=== PATIENT | female | born 1970 | race Caucasian/White ===

== ENCOUNTER 2023-12-12 16:53 | Emergency (ER) | payer OTHER, SELFPAY ==
[2023-12-12 17:11] VITALS: BP 162/86; PULSE 72; TEMP 36.8; O2SAT 98; BMI 41.8
--- NOTE | 2023-12-12 17:44 | US_ITS ---
The [address] [address] Patient Name: GEETA VANCE MRN: [id number] date: 1970 Sex: F Assigned Patient Location: ER Current Patient Location: ED.MAIN Accession/Order Number: [id number] Exam Date: 12/12/2023 18:15 Report Date: 12/12/2023 19:50 At the request of: SYBIL WYATT Procedure: US venous doppler LE BI EXAM: US venous doppler LE BI HISTORY: Leg pain/swelling COMPARISON: None. TECHNIQUE: Multiple sonographic images of the deep veins of both lower extremities were obtained, supplemented with Doppler. FINDINGS: The deep veins of both lower extremities are well visualized from the groin to the mid calf. No filling defect is identified to indicate a thrombus. There is normal compression augmentation to flow bilaterally. Pedicles veins are noted superficially, more numerous on the left. US/US venous doppler LE BI IMPRESSION: There is no direct or indirect evidence of deep vein thrombosis in the lower extremities at this time. Electronically authenticated by: HILDA MUNOZ Date: 12/12/2023 19:50
--- NOTE | 2023-12-12 17:44 | XR_ITS ---
The [address] [address] Patient Name: GEETA VANCE MRN: [id number] date: 1970 Sex: F Assigned Patient Location: ER Current Patient Location: ED.MAIN Accession/Order Number: [id number] Exam Date: 12/12/2023 17:58 Report Date: 12/12/2023 20:18 At the request of: SYBIL WYATT Procedure: XR ankle DANISH min 3V EXAM: XR ankle DANISH min 3V HISTORY: Bilateral ankle pain/swelling COMPARISON: None. TECHNIQUE: 3 views right ankle. 3 views left ankle. FINDINGS/IMPRESSION: Right ankle: There is an old tiny avulsion fracture of the lateral malleolus. There is no acute fracture. The mortise is preserved. There is diffuse soft tissue swelling surrounding the right ankle. Left ankle: There is an acute displaced fracture through the Achilles enthesophyte. This is distracted by 10 mm. There is a large plantar heel spur. The mortise is preserved. There is prominent soft tissue swelling surrounding the left ankle. Electronically authenticated by: MARY CAMPOS Date: 12/12/2023 20:18
--- NOTE | 2023-12-12 17:45 | ED.GENADUL1 ---
HPI HPI - General Adult General Chief complaint: Extremity Problem, Nontraumatic Stated complaint: Swollen Ankles Time Seen by Provider: 12/12/23 17:36 Source: patient Mode of arrival: walk-in Limitations: no limitations History of Present Illness HPI narrative: Patient is a 53-year-old female who presents to the emergency department for 2-week history of pain and swelling in the ankles. She states she initially attributed her symptoms to peripheral neuropathy but feels that her symptoms are worse in the last several days. She feels the left ankle and lower leg are swollen more than the right side. No falls or injuries. No fevers, vomiting or drainage from the ankles. No medications taken prior to arrival. She takes 200 mg of gabapentin 3 times daily for her peripheral neuropathy, no recent changes to this medication. Related Data Previous Rx's ?Medication ?Instructions ?Recorded ketorolac 10 mg tablet 10 mg PO TID PRN pain #10 tabs 12/12/23 ondansetron 4 mg disintegrating 4 mg PO Q6H PRN nausea and 12/12/23 tablet vomiting #12 tabs oxycodone-acetaminophen 5 mg-325 1 tab PO Q6H PRN pain 3 days #12 12/12/23 mg tablet (Percocet) tabs Allergies Allergy/AdvReac Type Severity Reaction Status Date / Time Penicillins AdvReac Severe Anaphylaxis Verified 12/12/23 17:11 Opioid HPI Opioid Management Most Recent Opioid Data: Last Pain Scale 9 12/12/23 17:53 Last MAR Pain Assessment 12/12/23 17:53 Review of Systems ROS Constitutional Denies: fever or chills Ears, nose, mouth, and throat Denies: throat pain or nasal congestion Cardiovascular Denies: chest pain Respiratory Denies: shortness of breath Gastrointestinal Denies: nausea or vomiting Musculoskeletal Reports: extremity pain and extremity swelling; Denies: back pain, neck pain or limited range of motion Integumentary/Breast Denies: rash Hematologic/Lymphatic Denies: easy bruising or easy bleeding Exam Narrative Exam Narrative: Gen.: Awake, alert, in no distress Head: Normocephalic, atraumatic ENT: Moist mucous membranes Respiratory: No respiratory distress Extremities: Moves extremities equally, left ankle is edematous, diffusely tender over the medial and posterior aspect. No significant edema noted of the right ankle with diffuse mild tenderness. Left calf is nonpitting, more swollen than the right calf which is also nonpitting. No red streaking, open wounds or drainage noted. Psych: Normal mood and affect Neuro: No focal neuro deficit Skin: Warm, dry Constitutional Vital Signs, click to edit/add: Last Vital Signs Temp 98.2 F 12/12/23 17:11 Pulse 72 12/12/23 17:11 Resp 18 12/12/23 17:11 BP 162/86 H 12/12/23 17:11 Pulse Ox 98 12/12/23 17:11 O2 Del Method Room Air 12/12/23 17:11 Course Vital Signs Vital signs: Vital Signs Temperature 98.2 F 12/12/23 17:11 Pulse Rate 72 12/12/23 17:11 Respiratory Rate 18 12/12/23 17:11 Blood Pressure 162/86 H 12/12/23 17:11 Pulse Oximetry 98 12/12/23 17:11 Oxygen Delivery Method Room Air 12/12/23 17:11 Temperature 98.2 F 12/12/23 17:11 Pulse Rate 72 12/12/23 17:11 Respiratory Rate 18 12/12/23 17:11 Blood Pressure 162/86 H 12/12/23 17:11 Pulse Oximetry 98 12/12/23 17:11 Oxygen Delivery Method Room Air 12/12/23 17:11 Medical Decision Making MDM Narrative Medical decision making narrative: Patient medicated with pain medication and NSAID in the ER. Laboratory studies show mildly elevated inflammatory markers but no evidence of gout, x-rays of the bilateral ankles and ultrasound of the bilateral lower extremities obtained showing no evidence of DVT. Patient has an old avulsion fracture in the right ankle, the left ankle shows an acute displaced fracture of the Achilles enthesophyte. Suspect this is the cause of the patient's left ankle swelling and redness. Patient placed in an orthopedic boot of the left leg. She was reevaluated by attending physician and will be discharged home with a short course of analgesics and NSAIDs to follow-up with podiatry. Stable at time of discharge. Rest, ice, elevate. Return to the ER if symptoms change or worsen SHARED APC VISIT, PHYSICIAN ATTESTATION: Vujp-os-awkh I performed a substantive part of the MDM during the patient?s E/M visit. I personally evaluated and examined the patient. I personally made or approved the documented management plan and acknowledge its risk of complications. Medical Records Medical records reviewed: Yes I reviewed the patient's medical records Lab Data Lab results reviewed: Yes I reviewed the patient's lab results Labs: Lab Results 12/12/23 Range/Units 17:55 WBC 10.3 (4.0-11.0) 10^3/uL RBC 5.49 H (4.20-5.40) 10^6/uL Hgb 13.9 (12.0-16.0) g/dL Hct 43.8 (36.0-48.0) % MCV 79.8 L (81.0-99.0) fL MCH 25.3 L (26.7-34.0) pg MCHC 31.7 (29.9-35.2) g/dL RDW 15.3 H (11.0-15.0) % Plt Count 278 (150-450) 10^3/uL MPV 10.4 (9.5-13.5) fL Neut % (Auto) 64.2 (43.0-75.0) % Lymph % (Auto) 24.7 (20.5-60.0) % [place] % (Auto) 8.0 (1.7-12.0) % Eos % (Auto) 2.1 (0.9-7.0) % Baso % (Auto) 0.6 (0.2-2.0) % Neut # (Auto) 6.6 H (1.4-6.5) 10^3/uL Lymph # (Auto) 2.5 (1.2-3.8) 10^3/uL [place] # (Auto) 0.8 (0.3-0.8) 10^3/uL Eos # (Auto) 0.2 (0.0-0.7) 10^3/uL Baso # (Auto) 0.1 (0.0-0.1) 10^3/uL Abs Immat Gran (auto) 0.04 H (0.00-0.03) 10^3/uL Imm/Tot Granulo (auto) 0.4 (0.0-0.5) % ESR 126 H (<=30) mm/hr Sodium 133 L (136-145) mmol/L Potassium 3.8 (3.5-5.1) mmol/L Chloride 98 (98-107) mmol/L Carbon Dioxide 30.3 (21.0-32.0) mmol/L Anion Gap 8.5 BUN 16.0 (7.0-18.0) mg/dL Creatinine 0.76 (0.55-1.02) mg/dL Est GFR ( Amer) >60 (>=60) Est GFR (Non-Af Amer) >60 (>=60) BUN/Creatinine Ratio 21.1 Glucose 94 (74-106) mg/dL Lactate 1.0 (0.4-2.0) mmol/L Uric Acid 3.4 (2.6-6.0) mg/dL Calcium 9.2 (8.5-10.1) mg/dL C-Reactive Protein 3.25 H (<=0.50) mg/dL NT-Pro-B Natriuret Pep 40.0 (<=900.0) pg/mL Imaging Data Venous US: Attestation: I have reviewed the pertinent imaging results. Radiologist's impression: ITS Impressions Venous Doppler Study 12/12/23 17:44 IMPRESSION: There is no direct or indirect evidence of deep vein thrombosis in the lower extremities at this time. Electronically authenticated by: JUN MUNOZ Date: 12/12/2023 19:50 xr ANKLE: Attestation: I have reviewed the pertinent imaging results. Radiologist's impression: ITS Impressions Venous Doppler Study 12/12/23 17:44 IMPRESSION: There is no direct or indirect evidence of deep vein thrombosis in the lower extremities at this time. Electronically authenticated by: JUN MUNOZ Date: 12/12/2023 19:50 Discharge Plan Discharge Stand Alone Forms: Portal Instructions Chief Complaint: Extremity Problem, Nontraumatic Clinical Impression: Acute bilateral ankle pain, Avulsion fracture of left ankle Patient Disposition: Home, Self-Care Time of Disposition Decision: 20:37 Condition: Good Prescriptions / Home Meds: New ketorolac 10 mg tablet 10 mg PO TID PRN (Reason: pain) Qty: 10 0RF oxycodone-acetaminophen [Percocet] 5-325 mg tablet 1 tab PO Q6H PRN (Reason: pain) 3 Days Qty: 12 0RF Rx Instructions: DX: M25.57 ondansetron 4 mg tablet,disintegrating 4 mg PO Q6H PRN (Reason: nausea and vomiting) Qty: 12 0RF Print Language: Ukrainian Instructions: Avulsion Fracture (ED) Referrals: Jun Gentile DPM [Physician] - As soon as possible
[2023-12-12] MEDS: OXYCODONE HCL/ACETAMINOPHEN 5MG/325MG 1 TAB PO (17:53)
[2023-12-12] MEDS: KETOROLAC TROMETHAMINE 10 MG TABLET PO (17:53)
[2023-12-12 18:05] LABS: Basophils Absolute Auto 0.1 10^3/uL (0.0-0.1); Basophils Percent Auto 0.6 % (0.2-2.0); Eosinophils Absolute Auto 0.2 10^3/uL (0.0-0.7); Eosinophils Percent Auto 2.1 % (0.9-7.0); Hematocrit 43.8 % (36.0-48.0); Hemoglobin 13.9 g/dL (12.0-16.0); Immature Granulocytes Abs Auto 0.04 10^3/uL (0.00-0.03); Immature Granulocytes Pct Auto 0.4 % (0.0-0.5); Lymphocytes Absolute Auto 2.5 10^3/uL (1.2-3.8); Lymphocytes Percent Auto 24.7 % (20.5-60.0); Mean Corpuscular HGB Conc 31.7 g/dL (29.9-35.2); Mean Corpuscular Hemoglobin 25.3 pg (26.7-34.0); Mean Corpuscular Volume 79.8 fL (81.0-99.0); Mean Platelet Volume 10.4 fL (9.5-13.5); Monocytes Absolute Auto 0.8 10^3/uL (0.3-0.8); Neutrophils Absolute Auto 6.6 10^3/uL (1.4-6.5); Neutrophils Percent Auto 64.2 % (43.0-75.0); Platelet Count 278 10^3/uL (150-450); Red Blood Count 5.49 10^6/uL (4.20-5.40); Red Cell Distribution Width 15.3 % (11.0-15.0); White Blood Count 10.3 10^3/uL (4.0-11.0)
[2023-12-12 18:31] LABS: Anion Gap 8.5; BUN Creatinine Ratio 21.1; C Reactive Protein 3.25 mg/dL (<=0.50); Calcium 9.2 mg/dL (8.5-10.1); Carbon Dioxide 30.3 mmol/L (21.0-32.0); Chloride 98 mmol/L (98-107); Estimated GFR (African America >60 (>=60); Estimated GFR (Non-African Ame >60 (>=60); Glucose 94 mg/dL (74-106); Potassium 3.8 mmol/L (3.5-5.1); Sodium 133 mmol/L (136-145); Uric Acid 3.4 mg/dL (2.6-6.0)
[2023-12-12 18:40] LABS: Erythrocyte Sedimentation Rate 126 mm/hr (<=30)
--- NOTE | 2023-12-12 19:13 | PC.NURSE ---
US at bedside upon shift change. this RN assumed care of pt this time.
[2023-12-12 20:54] VITALS: BP 190/122; PULSE 81; O2SAT 96
[2023-12-12 21:04] VITALS: BP 190/122
[2023-12-12] MEDS: HYDRALAZINE HCL 25 MG TABLET PO (21:04)
[2023-12-12 21:47] VITALS: BP 178/118
[2023-12-12] MEDS: HYDRALAZINE HCL 20 MG/ML VIAL IVP (22:05)
[2023-12-12 22:25] VITALS: BP 168/70; PULSE 77; O2SAT 98
== END 2023-12-12 22:25 | disposition home or self-care (01) ==
PROVIDERS: Physician Assistant; Emergency Provider Emergency Medicine
DX: S82.892A Other fracture of left lower leg, initial encounter for closed fracture (principal); M25.572 Pain in left ankle and joints of left foot; M25.571 Pain in right ankle and joints of right foot; X58.XXXA Exposure to other specified factors, initial encounter
CPT/HCPCS: 36415; 73610; 80048; 83605; 83880; 84550; 85025; 85652; 86140; 93970; 96374; 99285; J0360

== ENCOUNTER 2023-12-16 09:22 | Outpatient (OUT) | payer OTHER, SELFPAY ==
--- NOTE | 2023-12-16 | XR_ITS ---
The [address] [address] Patient Name: GEETA VANCE MRN: [id number] date: 1970 Sex: F Assigned Patient Location: Current Patient Location: Accession/Order Number: [id number] Exam Date: 12/16/2023 09:42 Report Date: 12/16/2023 11:49 At the request of: HILDA RUELAS Procedure: XR foot DANISH min 3V EXAMINATION: XR foot DANISH min 3V, XR ankle DANISH min 3V HISTORY: BILATERAL FOOT PAIN COMPARISON: 12/12/2023 FINDINGS: RIGHT FINDINGS: BONES: No acute fracture or dislocation. Moderate degenerative changes with joint space narrowing and marginal osteophyte formation. Hallux valgus. Moderate enthesopathic spurring of the calcaneus at the Achilles and plantar insertions SOFT TISSUES: Negative. No visible soft tissue swelling. OTHER: Negative. LEFT FINDINGS: BONES: 1.2 cm bone fragment likely representing avulsion of enthesopathic spurring at the Achilles insertion. Moderate degenerative change with joint space narrowing marginal osteophyte formation. Moderate hallux valgus. SOFT TISSUES: Negative. No visible soft tissue swelling. OTHER: Soft tissue swelling in the region of the Achilles tendon XR/XR foot DANISH min 3V IMPRESSION: RIGHT CONCLUSION: Moderate osteoarthritis with hallux valgus LEFT CONCLUSION: Achilles thickening with avulsion including a 1.2 cm enthesopathic spur, increased displacement now measuring 1.4 cm Electronically authenticated by: PAUL CAGLE Date: 12/16/2023 11:49
--- NOTE | 2023-12-16 | XR_ITS ---
The [address] [address] Patient Name: GEETA VANCE MRN: [id number] date: 1970 Sex: F Assigned Patient Location: Current Patient Location: Accession/Order Number: [id number] Exam Date: 12/16/2023 09:42 Report Date: 12/16/2023 11:49 At the request of: HILDA RUELAS Procedure: XR ankle DANISH min 3V EXAMINATION: XR foot DANISH min 3V, XR ankle DANISH min 3V HISTORY: BILATERAL FOOT PAIN COMPARISON: 12/12/2023 FINDINGS: RIGHT FINDINGS: BONES: No acute fracture or dislocation. Moderate degenerative changes with joint space narrowing and marginal osteophyte formation. Hallux valgus. Moderate enthesopathic spurring of the calcaneus at the Achilles and plantar insertions SOFT TISSUES: Negative. No visible soft tissue swelling. OTHER: Negative. LEFT FINDINGS: BONES: 1.2 cm bone fragment likely representing avulsion of enthesopathic spurring at the Achilles insertion. Moderate degenerative change with joint space narrowing marginal osteophyte formation. Moderate hallux valgus. SOFT TISSUES: Negative. No visible soft tissue swelling. OTHER: Soft tissue swelling in the region of the Achilles tendon XR/XR ankle DANISH min 3V IMPRESSION: RIGHT CONCLUSION: Moderate osteoarthritis with hallux valgus LEFT CONCLUSION: Achilles thickening with avulsion including a 1.2 cm enthesopathic spur, increased displacement now measuring 1.4 cm Electronically authenticated by: PAUL CAGLE Date: 12/16/2023 11:49
== END 2023-12-16 09:23 | disposition home or self-care (01) ==
LOC: EC 09:22
PROVIDERS: Visit Provider Podiatrist Foot & Ankle Surgery
DX: M25.572 Pain in left ankle and joints of left foot (principal); M25.571 Pain in right ankle and joints of right foot; M20.11 Hallux valgus (acquired), right foot; M77.32 Calcaneal spur, left foot
CPT/HCPCS: 73610; 73630

== ENCOUNTER 2023-12-30 08:54 | Outpatient (OUT) | payer OTHER, SELFPAY ==
--- NOTE | 2023-12-30 | XR_ITS ---
The [address] [address] Patient Name: GEETA VANCE MRN: [id number] date: 1970 Sex: F Assigned Patient Location: Current Patient Location: Accession/Order Number: [id number] Exam Date: 12/30/2023 09:00 Report Date: 12/31/2023 07:47 At the request of: HILDA RUELAS Procedure: XR foot DANISH min 3V EXAMINATION: XR foot DANISH min 3V, XR ankle DANISH min 3V HISTORY: BILATERAL FOOT PAIN COMPARISON: XR ankle and foot bilateral 12/16/2023 FINDINGS: RIGHT FINDINGS: BONES: Separate corticated ossification adjacent the medial malleolus favoring sequela of remote injury. Tiny corticated ossification distal to the lateral malleolus, also likely sequela of remote injury. Normal ankle joint spacing. Moderate degenerative enthesopathic spurring at Achilles tendon insertion and plantar aponeurosis . Bunion formation. SOFT TISSUES: No visible soft tissue swelling. OTHER: Negative. LEFT FINDINGS: BONES: Bunion formation. No fracture or dislocation. Prior avulsion fracture from posterior calcaneus at Achilles tendon insertion, unchanged. Large calcaneal plantar spur SOFT TISSUES: No visible soft tissue swelling. OTHER: Negative. XR/XR foot DANISH min 3V IMPRESSION: RIGHT CONCLUSION: Stable degenerative changes and suspected sequela of remote injury. No appreciable change compared to recent study. LEFT CONCLUSION: Stable degenerative changes. Stable avulsion fragment from posterior calcaneus at Achilles tendon insertion. No further retraction compared to prior study. Electronically authenticated by: FLACO ARCOS Date: 12/31/2023 07:47
--- NOTE | 2023-12-30 | XR_ITS ---
The [address] [address] Patient Name: GEETA VANCE MRN: [id number] date: 1970 Sex: F Assigned Patient Location: Current Patient Location: Accession/Order Number: [id number] Exam Date: 12/30/2023 09:00 Report Date: 12/31/2023 07:47 At the request of: HILDA RUELAS Procedure: XR ankle DANISH min 3V EXAMINATION: XR foot DANISH min 3V, XR ankle DANISH min 3V HISTORY: BILATERAL FOOT PAIN COMPARISON: XR ankle and foot bilateral 12/16/2023 FINDINGS: RIGHT FINDINGS: BONES: Separate corticated ossification adjacent the medial malleolus favoring sequela of remote injury. Tiny corticated ossification distal to the lateral malleolus, also likely sequela of remote injury. Normal ankle joint spacing. Moderate degenerative enthesopathic spurring at Achilles tendon insertion and plantar aponeurosis . Bunion formation. SOFT TISSUES: No visible soft tissue swelling. OTHER: Negative. LEFT FINDINGS: BONES: Bunion formation. No fracture or dislocation. Prior avulsion fracture from posterior calcaneus at Achilles tendon insertion, unchanged. Large calcaneal plantar spur SOFT TISSUES: No visible soft tissue swelling. OTHER: Negative. XR/XR ankle DANISH min 3V IMPRESSION: RIGHT CONCLUSION: Stable degenerative changes and suspected sequela of remote injury. No appreciable change compared to recent study. LEFT CONCLUSION: Stable degenerative changes. Stable avulsion fragment from posterior calcaneus at Achilles tendon insertion. No further retraction compared to prior study. Electronically authenticated by: FLACO ARCOS Date: 12/31/2023 07:47
--- OUTSIDE RECORDS SUMMARY | 2023-12-30 09:21 | XMS_ITS | CCD ---
Author Organization [facility] Care Team Providers Care Brewery Representative Name Role Phone RHEA Alvarado Attending Provider [facility], Services Primary Care Provider [phone] RHEA Alvaardo Primary Care Provide r CARLI Villeda Attending Provider RHEA Alvarado Primary Care Provide r CARLI Villeda Attending Provider [phone] Pending Provider Unavailable Unavailable Unavailable Unavailable Unavailable Primary Care Provider Unavailabl e Elizabeth Alvarado Primary Care Provider Unava ilable ACOSTA SCHAFER Admitting Unavailable ACOSTA SCHAFER Attending Unavailable ELIZABETH ALVARADO Primary Care Unavailable STAN CISSE Consulting Unavailable ACOSTA SCHAFER Referring Unavailable Pending, Provider Primary Care Unavailable Dr. Acosta Schafer Attending Un available Unavailable Unavailable RHEA Alvarado Primary Care Provide r RHEA Alvarado Attending Provider DO Lorrie Baig Attending Provider [phone] RHEA Alvarado Primary Care Provide r Acosta Schafer Attending Provider RHEA Ramirez Attending Provider DO Lorrie Baig Referring Provider [phone] Acosta Schafer Attending Un available Pending, Provider Primary Care Unavailable Dr. Acosta Schaferton Attending Un available Pending, Provider Primary Care Unavailable Alejandro II, Antonia Merrill Hernandez Attending Unav ailable Pending, Provider Primary Care Unavailable [place], Dr. Acosta Tyson Attending Un available Pending, Provider Primary Care Unavailable Pending, Provider Primary Care Unavailable [place], Dr. Acosta Tyson Attending Un available [place], Dr. Acosta Tyson Attending Un available Pending, Provider Primary Care Unavailable Pending, Provider Primary Care Unavailable [place], Dr. Acosta Tyson Attending Un available Myerholtz, BEATER TENDER Elizabeth K Primary Care Provide r Myerholtz, BEATER TENDER Elizabeth K Attending Provider Sindy Davila Unavailable MARII Davila Attending Provider Tyler Jean Unavailable [phone] Myerholtz, BEATER TENDER Elizabeth K Primary Care Provide r MARII Davila Attending Provider Myerholtz, BEATER TENDER Elizabeth K Attending Provider Myersaige, BEATER TENDER Elizabeth K Attending Provider NO FAMILY, PHYSICIAN Primary Care Provider Unava ilable Myerholtz, BEATER TENDER Elizabeth K Primary Care Provide r DO Lorrie Baig Referring Provider DO Krzysztof Salazar II Attending Provider [phone] NO FAMILY, PHYSICIAN Primary Care Unavailable JustinaerElizabeth moulton K Attending Unavailab le MyerholtzElizabeth K Admitting Unavailab le MyerholtzElizabeth K Primary Care Unavailab le MyerElizabeth moulton Attending Unavailab le MyerholElizabeth mitchell Admitting Unavailab le MyerholtzElizabeth Attending Unavailab le MyerholElizabeth mitchell Admitting Unavailab le MyerholElizabeth mitchell Primary Care Unavailab le MyerholElizabeth mitchell Primary Care Unavailab le MyerholtzElizabeth Attending Unavailab le Myerholtz, Elizabeth K Admitting Unavailab arnav Salazar IIKrzysztof Admitting Unavaila ble Krzysztof Salazar II Attending Unavaila Lorrie Rivera Referring Unavailable Elizabeth Alvarado Primary Care Unavailab Elizabeth Coy Primary Care Unavailab le Sindy Davila R Admitting Unavailable Sindy Davila R Attending Unavailable Elizabeth Alvarado Attending Unavailab le Elizabeth Alvarado Admitting Unavailab le Elizabeth Alvarado Attending Unavailab le Elizabeth Alvarado Admitting Unavailab le Allergies Allergy Classification Reported Allergen(s) Allergy Type Date of Onset Reaction(s) Facility NSAIDs (1 source) Ibuprofen Drug Allergy 4 Unknown Reaction [facility] Penicillins (antibiotic) (2 sources) Penicillin Drug Allergy 4 [facility] (20 sources) Penicillins; Translations: [Penicillins] Allergy to substance 8 Anaphylaxis [facility] (6 sources) Ibuprofen; Translations: [ibuprofen] Drug Allergy 3 Unknown Reaction [facility] (3 sources) Penicillin V Drug Allergy 3 [facility] (1 source) Penicillin Drug Allergy 4 [facility] Repository Medications Current Medications Medication Drug Class(es) Dates Sig (Normalized) Sig (Original) acetaminophen 325 mg oral tablet (2 sources) Start: 07-01-2022 acetaminophen (TYLENOL) tablet 650 mg Start: 07-01-2022 End: 07-01-2022 acetaminophen (TYLENOL) tabl et 1,000 mg [id number] 200 actuat albuterol 0.09 mg/actuat metered dose inhaler (11 sources) beta2-Adrenergic Agonist Start: 08-13-2022 take 1 puff(s) by inhalation every four to six hours Albuterol Sulfate Active 2 PUFF INHALATION EVERY 4-6 HOURS August 13, 2022 12:00am Start: 07-01-2022 2.5 mg, Nebuli zation, EVERY 6 HOURS PRN, Starting on Renee 07/01/22 at 1521, Until Discontinued, Wheezing Initiate RT Bronchodilator Protocol: Yes - Inpatient Protocol Albuterol Sulfat e (2.5 MG/3ML) 0.083% 1 unit dose Inhalation four times a day DX J44.9 COPD Active albuterol (PROVE NTIL) (2.5 MG/3ML) 0.083% nebulizer solution Inhale 2.5 mg into the lungs 2 times daily 0 Active albuterol sulfat e HFA (PROVENTIL;VENTOLIN;PROAIR) 108 (90 Base) MCG/ACT inhaler Inhale 2 puffs into the lungs every 6-8 hours as needed 0 Active celecoxib 200 mg oral capsule (10 sources) Nonsteroidal Anti-inflammatory Drug Start: 12-26-2021 take 200 mg by mouth once daily Celecoxib Active 200 MG PO Daily August 13, 2022 12:00am clonazePAM 1 mg oral tablet (2 sources) Benzodiazepine Start: 11-12-2019 clonazePAM 1 MG 1/2 tablet and may increase to 1 tablet nightly Orally Once a day at bed time for 30 days Oct, Active cyclobenzaprine hydrochloride 10 mg oral tablet (13 sources) Muscle Relaxant Start: 07-14-2022 take 10 mg by mouth at bedtime Cyclobenzaprine Active 10 MG PO Bedtime August 13, 2022 12:00am Start: 07-01-2022 cyclobenzaprin e (FLEXERIL) tablet 10 mg Start: 12-23-2021 take 1 tablet by cliff th once daily as needed cyclobenzaprine (FLEXERIL) 10 MG tablet Take 10 mg by mouth nightly as needed 0 12/23/2021 Active docusate sodium 50 mg / sennosides, detention 8.6 mg oral tablet (2 sources) Start: 07-02-2022 End: 07-12-2022 take 1 tablet by mouth twice daily sennosides-docusate sodium (SENOKOT-S) 8.6-50 MG tablet Take 1 tablet by mouth 2 times daily for 10 days 20 tablet 0 07/02/2022 07/12/2022 Active Start: 07-01-2022 sennosides-doc usate sodium (SENOKOT-S) 8.6-50 MG tablet 1 tablet 60 actuat fluticasone propionate 0.5 mg/actuat / salmeterol 0.05 mg/actuat dry powder inhaler (2 sources) Corticosteroid, beta2-Adrenergic Agonist take 1 puff(s) by inhalation twice daily Advair Diskus 500-50 MCG/ACT 1 puff Inhalation Twice a day Active 60 actuat formoterol fumarate 0.005 mg/actuat / mometasone furoate 0.2 mg/actuat metered dose inhaler (1 source) Corticosteroid, beta2-Adrenergic Agonist Star t: 01-23 22 take 2 puff(s) by inhalation at bedtime mometasone-formoterol (DULERA) 200-5 MCG/ACT inhaler Inhale 2 puffs into the lungs in the morning and at bedtime 0 02/08/2022 Active gabapentin 100 mg oral capsule (2 sources) Anti-epileptic Agent Gabapentin 100 MG Oral for 30 Days Active hydroCHLOROthiazide 12.5 mg oral capsule (2 sources) Thiazide Diuretic take 1 capsule by mouth once daily in the morning hydroCHLOROthiazide 12.5 MG TAKE 1 CAPSULE BY MOUTH EVERY DAY IN THE MORNING Oral for 90 Days Active hydrOXYzine hydrochloride 50 mg oral tablet (9 sources) Antihistamine Star t: 07-25 23 take 50 mg by mouth once daily at bedtime Hydroxyzine Hcl Active 50 MG PO Daily at bedtime August 13, 2022 12:00am hydrOXYzine HCl 25 MG 1 tablet as needed Orally At bedtime Active loratadine 10 mg oral tablet (2 sources) take 1 tablet by mouth once daily Loratadine 10 MG 1 tablet Orally Once a day Active losartan potassium 50 mg oral tablet (1 source) Angiotensin 2 Receptor Kwadwo Start: 01-26-20 22 take 1 tablet by mouth once daily losartan (COZAAR) 50 MG tablet Take 50 mg by mouth daily 0 01/25/2022 Active 24 hr metFORMIN hydrochloride 500 mg extended release oral tablet (2 sources) Biguanide take 1 tablet by mouth once daily metFORMIN HCl ER 500 MG TAKE 1 TABLET BY MOUTH EVERY DAY WITH EVENING MEAL Oral for 90 Days Active Mometasone-Formoterol (Dulera) 200-5 mcg/actuation Hfa Aerosol Inhaler (6 sources) Start: 08-14-19 23 take 1 puff(s) by inhalation every twelve hours Mometasone-Formote rol (Dulera) 200-5 mcg/actuation Hfa Aerosol Inhaler Active 2 PUFF INHALATION Q12H August 12, 2022 11:00pm Start: 08-13-2022 take 1 puff(s) by in halation every twelve hours Mometasone-Formoterol (Dulera) 200-5 mcg/actuation Hfa Aerosol Inhaler Active 2 PUFF INHALATION Q12H August 13, 2022 12:00am montelukast 10 mg oral tablet (4 sources) Leukotriene Receptor Antagonist Start: 07-11-2017 take 1 tablet by mouth every twenty-four hours Singulair 10 mg 1 tablet in the evening Orally Once a day Jun, Active 1 ml morphine sulfate 2 mg/ml cartridge (1 source) Opioid Agonist Start: 07-01-2022 morphine (PF) injection 2 mg omeprazole 20 mg delayed release oral tablet (2 sources) Proton Pump Inhibitor Start: 01-26-2023 take 1 tablet by mouth once daily Omeprazole 20 MG 1 tablet 30 minutes before morning meal Orally Once a day for 30 days Jan, Active ondansetron (ZOFRAN-ODT) disintegrating tablet 4 mg (1 source) Start: 07-01-2022 ondansetron (ZOFRAN-ODT) disintegrating tablet 4 mg polyethylene glycol [id number] mg powder for oral solution (1 source) Osmotic Laxative Start: 07-01-2022 polyethylene glycol (GLYCOLAX) packet 17 g ProAir HFA 108 (90 Base) MCG/ACT (2 sources) take 2 puff(s) by inhalation every four hours as needed ProAir HFA 108 (90 Base) MCG/ACT 2 puffs as needed Inhalation every 4 hrs Active rOPINIRole 2 mg oral tablet (18 sources) Nonergot Dopamine Agonist Start: 08-13-2022 take 2 mg by mouth twice daily Ropinirole Active 2 MG PO Twice daily August 13, 2022 12:00am Start: 07-01-2022 take 0.25 mg by mout h twice daily 0.25 mg, Oral, 2 times daily, First dose on Renee 07/01/22 at 2100, Until Discontinued Start: 06-03-2017 End: 08-13-2022 Ropinirole Discontinued TABL ET June 03, 2017 1:00am August 13, 2022 1:24pm take 1 tablet by cliff th at bedtime rOPINIRole (REQUIP) 0.25 MG tablet Take 0.25 mg by mouth in the morning and at bedtime 0 Active sertraline 100 mg oral tablet (2 sources) Serotonin Reuptake Inhibitor Sertraline HCl 100 M G TAKE 1 TABLET BY MOUTH EVERY DAY FOR 30 DAYS Oral for 30 Days Active 5 ml sodium chloride 9 mg/ml injection (3 sources) Start: 07-01-2022 0.9 % sodium chloride infusion Start: 07-01-2022 sodium chlorid e flush 0.9 % injection 5-40 mL solifenacin succinate 10 mg oral tablet (9 sources) Cholinergic Muscarinic Antagonist Start: 12-03-2021 take 10 mg by mouth once daily Solifenacin Active 10 MG PO Daily August 13, 2022 12:00am 24 hr venlafaxine 75 mg extended release oral tablet (8 sources) Serotonin and Norepinephrine Reuptake Inhibitor Start: 08-13-2022 take 75 mg by mouth once daily Venlafaxine Active 75 MG PO Daily August 13, 2022 12:00am Start: 07-01-2022 take 75 mg by mouth once daily 75 mg, Oral, DAILY, First dose on [facility] 07/01/22 at 1545, Until Discontinued Do not crush or break. Start: 12-03-2021 take 1 capsule by mo [facility] once daily venlafaxine (EFFEXOR XR) 75 MG extended release capsule Take 75 mg by mouth daily 0 12/03/2021 Active Completed/Discontinued Medications Medication Drug Class(es) Dates Sig (Normalized) Sig (Original) aspirin 81 mg delayed release oral tablet (1 source) Platelet Aggregation Inhibitor, Nonsteroidal Anti-inflammatory Drug Start: 07-01-2022 End: 07-02-2022 aspirin EC tablet 81 mg 60 actuat budesonide 0.16 mg/actuat / formoterol fumarate 0.0045 mg/actuat metered dose inhaler (1 source) Corticosteroid, beta2-Adrenergic Agonist Start: 07-01-2022 take 2 puff(s) by inhalation twice daily 2 puff, Inhalation, 2 TIMES DAILY, First dose on [facility] 07/01/22 at 2000, Until Discontinued Substituted for mometasone-formot gian (DULERA). calcium chloride 0.0014 meq/ml / potassium chloride 0.004 meq/ml / sodium chloride 0.103 meq/ml / sodium lactate 0.028 meq/ml injectable solution (3 sources) Start: 07-01-2022 End: 07-02-2022 lactated ringers IV soln infusion ferrous sulfate 325 mg oral tablet (11 sources) Start: 09-21-2022 End: 09-30-2023 take 325 mg by mouth every other day Ferrous Sulfate Discontinued 325 MG PO Daily 60 October 06, 2022 8:15am September 30, 2023 9:39am may take every other day furosemide 20 mg oral tablet (10 sources) Loop Diuretic Start: 06-03-2017 End: 08-13-2022 Furosemide Discontinued TABLET June 03, 2017 1:00am August 13, 2022 1:21pm 1 ml ketorolac tromethamine 30 mg/ml cartridge (1 source) Nonsteroidal Anti-inflammatory Drug, Cyclooxygenase Inhibitor Start: 07-01-2022 End: 07-02-2022 ketorolac (TORADOL) injection 30 mg ondansetron 4 mg disintegrating oral tablet (10 sources) Serotonin-3 Receptor Antagonist Start: 06-03-2017 End: 08-13-2022 take 1 tablet by mouth every four hours Ondansetron (Zofran Odt) 4 mg Tablet,Disintegra ting Discontinued 4 MG PO Q4H 6 June 03, 2017 1:00am August 13, 2022 1:21pm administer first dose 30 minutes before start of emetogenic chemotherapy oxyCODONE hydrochloride 5 mg oral tablet (8 sources) Opioid Agonist Start: 07-14-2022 take 1 tablet by mouth every six hours as needed for pain oxyCODONE HCl - 5 MG Oral Tablet TAKE 1 TABLET EVERY 6 HOURS NEEDED FOR BREAKTHROUGH PAIN. Quantity: 28 Refills: 0 Ordered: 16-Jul-2022 Acosta Schafer MD Start : 14-Jul-2022 Active Start: 07-02-2022 End: 07-09-2022 take 1 tablet by mouth every four hours as needed for pain oxyCODONE (ROXICODONE) 5 MG immediate release tablet Indications: Acute postoperative pain Take 1 tablet by mouth every 4 hours as needed for Pain for up to 7 days. Max Daily Amount: 30 mg 28 tablet 0 07/02/2022 07/09/2022 Active Start: 07-01-2022 oxyCODONE (RACHELL ICODONE) immediate release tablet 5 mg Start: 07-01-2022 End: 07-01-2022 oxyCODONE (OXYCONTIN) extend ed release tablet 10 mg rivaroxaban 10 mg oral tablet (8 sources) Factor Xa Inhibitor Start: 07-07-2022 take 1 tablet by mouth once daily Xarelto 10 MG Oral Tablet Take 1 tablet daily Quantity: 14 Refills: 0 Ordered: 07-Jul-2022 Acosta Schafer MD Start : 07-Jul-2022 Active Start: 07-02-2022 rivaroxaban (X ARELTO) tablet 10 mg Start: 07-02-2022 End: 07-30-2022 take 1 tablet by mouth once daily at breakfast XARELTO 20 MG TABS tablet Take 1 tablet by mouth daily (with breakfast) for 28 days Take half tablet by mouth 10 mg once daily for 28 days 28 tablet 0 07/02/2022 07/30/2022 Active tranexamic acid 650 mg oral tablet (3 sources) Antifibrinolytic Agent Start: 07-01-2022 End: 07-02-2022 tranexamic acid (LYSTEDA) tablet 1,950 mg vancomycin (VANCOCIN) 2,000 mg in sodium chloride 0.9 % 500 mL IVPB (1 source) Start: 07-01-2022 End: 07-02-2022 vancomycin (VANCOCIN) 2,000 mg in sodium chloride 0.9 % 500 mL IVPB vancomycin 1000 mg IVPB in 250 mL NS addavial (1 source) Start: 07-01-2022 End: 07-01-2022 vancomycin 1000 mg IVPB in 250 mL NS addavial Problems Active Problems Problem Classification Problem Date Documented Da te Episodic/Chronic Asthma (7 sources) Uncomplicated moderate persistent asthma; Translations: [Moderate persistent asthma, uncomplicated] Onset: 3 Chronic Diabetes mellitus without complication (1 source) Type 2 diabetes mellitus without complications; Translations: [Type 2 diabetes mellitus without complications] Onset: 4 Chronic Esophageal disorders (2 sources) Gastroesophageal reflux disease; Translations: [Gastro-esophageal reflux disease without esophagitis] Chronic Fluid and electrolyte disorders (10 sources) Dehydration; Translations: [Dehydration] 06-03-2017 Episodic Neoplasms of unspecified nature or uncertain behavior (10 sources) Monoclonal gammopathy of uncertain significance; Translations: [Monoclonal gammopathy] Onset: 4 08-16-2022 Chronic Osteoarthritis (1 source) Unilateral primary osteoarthritis, right knee; Translations: [Unilateral primary osteoarthritis, right knee] Onset: 3 Chronic Other aftercare (1 source) Aftercare following joint replacement surgery; Translations: [Aftercare following joint replacement surgery] Onset: 3 Chronic Other connective tissue disease (3 sources) History of revision of right total knee arthroplasty; Translations: [Presence of right artificial knee joint] Onset: 3 Chronic Other connective tissue disease (2 sources) Presence of unspecified artificial knee joint; Translations: [Presence of unspecified artificial knee joint] Onset: 3 Chronic Other connective tissue disease (3 sources) Presence of right artificial knee joint; Translations: [Presence of right artificial knee joint] Onset: 3 Chronic Other connective tissue disease (6 sources) History of total knee arthroplasty; Translations: [Knee joint replacement] Chronic Other connective tissue disease (1 source) Presence of artificial knee joint, bilateral; Translations: [Presence of artificial knee joint, bilateral] Onset: 3 Chronic Other diseases of veins and lymphatics (1 source) Venous hypertension of lower limb; Translations: [Chronic venous hypertension (idiopathic) without complications of bilateral lower extremity] Chronic Other diseases of veins and lymphatics (1 source) Chronic venous hypertension (idiopathic) without complications of bilateral lower extremity Chronic Other diseases of veins and lymphatics (1 source) Peripheral venous insufficiency; Translations: [Venous insufficiency (chronic) (peripheral)] Episodic Other diseases of veins and lymphatics (1 source) Venous insufficiency (chronic) (peripheral) Episodic Other female genital disorders (1 source) Abnormal uterine and vaginal bleeding, unspecified; Translations: [Abnormal uterine and vaginal bleeding, unspecified] Onset: 4 Chronic Other gastrointestinal disorders (2 sources) Dysphagia; Translations: [Dysphagia, unspecified] Episodic Other hematologic conditions (6 sources) Microcytosis; Translations: [Other abnormality of red blood cells] 08-16-2022 Episodic Other hematologic conditions (2 sources) Other abnormality of red blood cells; Translations: [Other abnormality of red blood cells] 09-21-2022 Episodic Other hereditary and degenerative nervous system conditions (2 sources) Restless legs; Translations: [Restless legs syndrome] Chronic Other nervous system disorders (6 sources) Peripheral nerve disease ; Translations: [Polyneuropathy, unspecified] 08-16-2022 Chronic Other nervous system disorders (2 sources) Polyneuropathy, unspecified; Translations: [Unspecified hereditary and idiopathic peripheral neuropathy] 09-21-2022 Chronic Other nervous system disorders (1 source) Acute postoperative pain; Translations: [Other acute postprocedural pain] Episodic Other upper respiratory disease (2 sources) Seasonal allergic rhinitis; Translations: [Other seasonal allergic rhinitis] Chronic Tami-; endo-; and myocarditis; cardiomyopathy (except that caused by tuberculosis or sexually transmitted disease) (2 sources) Valvular regurgitation; Translations: [Endocarditis, valve unspecified] Chronic Peripheral and visceral atherosclerosis (2 sources) Peripheral vascular disease; Translations: [Peripheral vascular disease, unspecified] Chronic Residual codes; unclassified (2 sources) Sleep apnea; Translations: [Sleep apnea, unspecified] Chronic Residual codes; unclassified (1 source) Localized edema Episodic Unclassified (1 source) Encounter for screening mammogram for malignant neoplasm of breast; Translations: [Encounter for screening mammogram for malignant neoplasm of breast] Onset: Varicose veins of lower extremity (5 sources) Varicose veins of lower extremity; Translations: [Varicose veins of bilateral lower extremities with other complications] Episodic Viral infection (10 sources) Acute viral disease; Translations: [Viral infection, unspecified] 06-03-2017 Episodic Past or Other Problems Problem Classification Problem Date Documented Da te Episodic/Chronic Complication of device; implant or graft (6 sources) Mechanical loosening of other internal prosthetic joint, initial encounter; Translations: [Loosening of unicondylar knee replacement] Onset: 05-18-2022 Episodic Other connective tissue disease (1 source) Other specified soft tissue disorders; Translations: [Other specified soft tissue disorders] Onset: 02-14-2023 Episodic Other non-traumatic joint disorders (12 sources) Pain in right knee; Translations: [Acute pain of both knees] Onset: 06-25-2022 Episodic Other non-traumatic joint disorders (1 source) Pain in left knee; Translations: [Pain in left knee] Onset: 06-25-2022 Episodic Results Test Name Value Interpretation Reference Range Facility Alanine aminotransferase [En zymatic activity/volume] in Serum or PlasmaOrdered By: Krzysztof Salazar on 09-20-2023 ALT [Catalytic activity/Vol] 33 U/L Normal 7-52 [facility] Comment on above: Performed By: #### F ER, CMP, CBC, FE and TIBC #### [facility] [address] [place] [address] [place] #### TOMA SERUM, SPE, KAPPA #### [facility] , Albumin [Mass/volume] in Ser um or PlasmaOrdered By: Krzysztof Salazar on 09-20-2023 Albumin [Mass/Vol] 3.8 g/dL Normal 2.9-4.4 [facility] Comment on above: Performed By: #### F ER, CMP, CBC, FE and TIBC ####[facility] [id number] [place] [address] [place]#### TOMA SERUM, SPE, KAPPA ####[facility] , Albumin [Mass/volume] in Ser um or Plasma by Bromocresol green (BCG) dye binding methoOrdered By: Krzysztof Salazar on 09-20-2023 Albumin BCG dye [Mass/Vol] 4.2 g/dL 3.5-5.7 [facility] Alkaline phosphatase [Enzyma tic activity/volume] in Serum or PlasmaOrdered By: Krzysztof Salazar on 09-20-2023 ALP [Catalytic activity/Vol] 79 U/L Normal 34-104 [facility] Comment on above: Performed By: #### F ER, CMP, CBC, FE and TIBC #### [facility] [address] [place] [address] [place] #### TOMA SERUM, SPE, KAPPA #### [facility] , Aspartate aminotransferase [ Enzymatic activity/volume] in Serum or PlasmaOrdered By: Krzysztof Salazar on 09-20-2023 AST [Catalytic activity/Vol] 30 U/L Normal 13-39 [facility] Comment on above: Performed By: #### F ER, CMP, CBC, FE and TIBC #### [facility] [address] [place] [address] [place] #### TOMA SERUM, SPE, KAPPA #### [facility] , Automated basophil %Ordered By: Krzysztof Salazar on 09-20-2023 Basophils/100 WBC (Bld) 0.5 % Normal . [facility] Comment on above: Performed By: #### F ER, CMP, CBC, FE and TIBC #### [address] #### TOMA SERUM, SPE, KAPPA #### [facility] , Automated basophil countOrde red By: Krzysztof Salazar on 09-20-2023 Basophils (Bld) [#/Vol] 0.0 10*3/uL Normal 0.0-0.2 [facility] Comment on above: Result Comment: PERF ORMED BY: [place] [address] PATHOLOGIST DERRICK BUILDER MELODY ELAM M.D. Performed By: #### F ER, CMP, CBC, FE and TIBC #### [address] #### TOMA SERUM, SPE, KAPPA #### [facility] , Automated blood monocyte cou ntOrdered By: Krzysztof Salazar on 09-20-2023 Monocytes (Bld) [#/Vol] 0.7 10*3/uL Normal 0.0-0.8 [facility] Comment on above: Performed By: #### F ER, CMP, CBC, FE and TIBC #### [place] [address] [place] #### TOMA SERUM, SPE, KAPPA #### [facility] , Automated eosinophil %Ordere d By: Krzysztof Salazar on 09-20-2023 Eosinophils/100 WBC (Bld) 2.6 % Normal . [facility] Comment on above: Performed By: #### F ER, CMP, CBC, FE and TIBC #### [address] #### TOMA SERUM, SPE, KAPPA #### [facility] , Automated eosinophil countOr dered By: Krzysztof Salazar on 09-20-2023 Eosinophils (Bld) [#/Vol] 0.2 10*3/uL Normal 0.0-0.45 [facility] Comment on above: Performed By: #### F ER, CMP, CBC, FE and TIBC #### [address] #### TOMA SERUM, SPE, KAPPA #### [facility] , Automated monocyte %Ordered By: Krzysztof Salazar on 09-20-2023 Monocytes/100 WBC (Bld) 7.9 % Normal . [facility] Comment on above: Performed By: #### F ER, CMP, CBC, FE and TIBC #### [address] #### TOMA SERUM, SPE, KAPPA #### [facility] , Automated neutrophil %Ordere d By: Krzysztof Salazar on 09-20-2023 Neutrophils/100 WBC (Bld) 64.3 % Normal . [facility] Comment on above: Performed By: #### F ER, CMP, CBC, FE and TIBC #### [address] #### TOMA SERUM, SPE, KAPPA #### [facility] , Bilirubin.total [Mass/volume ] in Serum or PlasmaOrdered By: Krzysztof Salazar on 09-20-2023 Bilirubin [Mass/Vol] 0.6 mg/dL Normal 0.3-1.0 [facility] Comment on above: Performed By: #### F ER, CMP, CBC, FE and TIBC #### [address] #### TOMA SERUM, SPE, KAPPA #### [facility] , Calcium [Mass/volume] in Ser um or PlasmaOrdered By: Krzysztof Salazar on 09-20-2023 Calcium [Mass/Vol] 9.7 mg/dL Normal 8.6-10.3 [facility] Comment on above: Performed By: #### F ER, CMP, CBC, FE and TIBC #### [place] [address] [place] #### TOMA SERUM, SPE, KAPPA #### [facility] , Carbon dioxide, total [Moles /volume] in Serum or PlasmaOrdered By: Krzysztof Salazar on 09-20-2023 CO2 [Moles/Vol] 32.4 mmol/L High 21.0-31.0 [facility] Comment on above: Performed By: #### F ER, CMP, CBC, FE and TIBC #### [place] [address] [place] #### TOMA SERUM, SPE, KAPPA #### [facility] , Chloride [Moles/volume] in S hugo or PlasmaOrdered By: Krzysztof Salazar on 09-20-2023 Chloride [Moles/Vol] 97 mmol/L Low 98-107 [facility] Comment on above: Performed By: #### F ER, CMP, CBC, FE and TIBC #### [place] [address] [place] #### TOMA SERUM, SPE, KAPPA #### [facility] , Complete Blood Count Auto Di ffon 09-20-2023 Mean Corpuscular HGB Conc 32.7 g/dL Normal 32.0-35.0 [facility] Comment on above: Performed By: #### F ER, CMP, CBC, FE and TIBC #### [place] [address] [place] #### TOMA SERUM, SPE, KAPPA #### [facility] , NRBC% 0.1 /100{WBC} Normal 0-0.5 [facility] Comment on above: Performed By: #### F ER, CMP, CBC, FE and TIBC #### [place] [address] [place] #### TOMA SERUM, SPE, KAPPA #### [facility] , Comprehensive Metabolic Pane gretel 09-20-2023 Albumin [Mass/Vol] 4.2 g/dL Normal 3.5-5.7 [facility] Comment on above: Performed By: #### F ER, CMP, CBC, FE and TIBC #### [place] [address] [place] #### TOMA SERUM, SPE, KAPPA #### [facility] , Creatinine Clr Calc Pharmacy 143.32 Normal [facility] Comment on above: Performed By: #### F ER, CMP, CBC, FE and TIBC #### [place] [address] [place] #### TOMA SERUM, SPE, KAPPA #### [facility] , GFR/1.73 sq M.predicted MDRD (S/P/Bld) [Vol rate/Area] mL/min/{1.73_m2} Normal [facility] Comment on above: Performed By: #### F ER, CMP, CBC, FE and TIBC #### [place] [address] [place] #### TOMA SERUM, SPE, KAPPA #### [facility] , Creatinine [Mass/volume] in Serum or PlasmaOrdered By: Krzysztof Salazar on 09-20-2023 Creatinine [Mass/Vol] 0.60 mg/dL Normal 0.60-1.20 [facility] Comment on above: Performed By: #### F ER, CMP, CBC, FE and TIBC #### [place] [address] [place] #### TOMA SERUM, SPE, KAPPA #### [facility] , Erythrocyte distribution wid th [Ratio] by Automated countOrdered By: Krzysztof Salazar on 09-20-2023 Erythrocyte distribution width (RBC) [Ratio] 16.7 % High 11.9-15.3 [facility] Comment on above: Performed By: #### F ER, CMP, CBC, FE and TIBC #### [address] #### TOMA SERUM, SPE, KAPPA #### [facility] , Erythrocytes [#/volume] in B lood by Automated countOrdered By: Krzysztof Salazar on 09-20-2023 RBC (Bld) [#/Vol] 4.86 10*6/uL Normal 3.60-5.00 [facility] Comment on above: Performed By: #### F ER, CMP, CBC, FE and TIBC #### [address] #### TOMA SERUM, SPE, KAPPA #### [facility] , Ferritin [Mass/volume] in Se rum or PlasmaOrdered By: Krzysztof Salazar on 09-20-2023 Ferritin [Mass/Vol] 92.7 ng/mL Normal 11.0-306.8 [facility] Comment on above: Result Comment: PERF ORMED BY: [place] [address] PATHOLOGIST DERRICK BUILDER MELODY ELAM M.D. Performed By: #### F ER, CMP, CBC, FE and TIBC ####[address]#### TOMA SERUM, SPE, KAPPA ####[facility] , Free K+L LT Chains, Qn, Son 09-20-2023 Free Baden Light Chains, S 30.9 mg/L High 3.3-19.4 [facility] Comment on above: Performed By: #### F ER, CMP, CBC, FE and TIBC ####[address]#### TOMA SERUM, SPE, KAPPA ####[facility] , Free Lambda Light Chains, S 26.4 mg/L High 5.7-26.3 [facility] Comment on above: Performed By: #### F ER, CMP, CBC, FE and TIBC ####[address] [place] [address] [place]#### TOMA SERUM, SPE, KAPPA ####[facility] , Baden/Lambda Ratio, S 1.17 Normal 0.26-1.65 [facility] Comment on above: Result Comment: Perf ormed at: - [facility] [address] [id number] Supervisor [employer]: Jeyson Duncan PhD, Phone: [phone] PERFORMED BY: [place] [address] PATHOLOGIST DERRICK BUILDER MELODY ELAM M.D. Performed By: #### F ER, CMP, CBC, FE and TIBC ####[address]#### TOMA SERUM, SPE, KAPPA ####[facility] , Glucose [Mass/volume] in Ser um or PlasmaOrdered By: Krzysztof Salazar on 09-20-2023 Glucose [Mass/Vol] 123 mg/dL High 70-100 [facility] Comment on above: ADA recommended refe rence rangeRandom Glucose Reference Range is dependent on time and content of last meal. Glucose of more than 200 mg/dL in a nonstressed, ambulatory subject supports the diagnosis of Diabetes Mellitus. Result Comment: [place] om Glucose Reference Range is dependent on time and content of last meal. Glucose of more than 200 mg/dL in a nonstressed, ambulatory subject supports the diagnosis of Diabetes Mellitus. ADA recommended reference range Performed By: #### F ER, CMP, CBC, FE and TIBC #### [facility] [address] [place] [address] #### TOMA SERUM, SPE, KAPPA #### [facility] , Hematocrit [Volume Fraction] of Blood by Automated countOrdered By: Krzysztof Salazar on 09-20-2023 Hematocrit (Bld) [Volume fraction] 38.3 % Normal 34.0-46.4 [facility] Comment on above: Performed By: #### F ER, CMP, CBC, FE and TIBC #### [facility] [address] #### TOMA SERUM, SPE, KAPPA #### [facility] , Hemoglobin [Mass/volume] in BloodOrdered By: Krzysztof Salazar on 09-20-2023 Hemoglobin (Bld) [Mass/Vol] 12.5 g/dL Normal 11.8-15.4 [facility] Comment on above: Performed By: #### F ER, CMP, CBC, FE and TIBC #### [facility] [address] #### TOMA SERUM, SPE, KAPPA #### [facility] , IgA [Mass/volume] in Serum o r PlasmaOrdered By: Krzysztof Salazar on 09-20-2023 IgA [Mass/Vol] 409 mg/dL 87-352 [facility] IgG [Mass/volume] in Serum o r PlasmaOrdered By: Krzysztof Salazar on 09-20-2023 IgG [Mass/Vol] 1704 mg/dL [phone] [facility] IgM [Mass/volume] in Serum o r PlasmaOrdered By: Krzysztof Salazar on 09-20-2023 IgM [Mass/Vol] 122 mg/dL 26-217 [facility] Comment on above: Performed at: [place] [id number] Director: Jeyson Duncan PhD, Phone: [phone] Immunofixation,Serumon 09-19 Immunofixation, Serum Normal . [facility] Comment on above: Result Comment: No m onoclonality detected. Performed By: #### F ER, CMP, CBC, FE and TIBC ####[facility] [place] [address] [place]#### TOMA SERUM, SPE, KAPPA ####[facility] , Immunoglobulin A, Serum 409 mg/dL High 87-352 [facility] Comment on above: Performed By: #### F ER, CMP, CBC, FE and TIBC ####[facility]#### TOMA SERUM, SPE, KAPPA ####[facility] , Immunoglobulin G 1704 mg/dL High 586-1602 [facility] Comment on above: Performed By: #### F ER, CMP, CBC, FE and TIBC ####[place] [address] [address]#### TOMA SERUM, SPE, KAPPA ####[facility] , Immunoglobulin M, Serum 122 mg/dL Normal 26-217 [facility] Comment on above: Result Comment: Perf ormed at: [employer] - [facility] [address] [id number] Supervisor [employer]: Jeyson Duncan PhD, Phone: [phone] Performed By: #### F ER, CMP, CBC, FE and TIBC ####[place] [address] [address]#### TOMA SERUM, SPE, KAPPA ####[facility] , Immunoglobulin light chains. kappa.free [Mass/volume] in SerumOrdered By: Krzysztof Salazar on 09-20-2023 Immunoglobulin light chains.kappa.free (S) [Mass/Vol] 30.9 mg/L 3.3-19.4 [facility] Immunoglobulin light chains. kappa.free/Immunoglobulin light chains.lambda.free [MassOrdered By: Krzysztof Salazar on 09-20-2023 Immunoglobulin light chains.kappa.free/Immuno globulin light chains.lambda.free (S) [Mass ratio] 1.17 0.26-1.65 [facility] Comment on above: Performed at: [employer] [facility] [id number] [place] [id number] Director: Jeyson Duncan PhD, Phone: [phone] Immunoglobulin light chains. lambda.free [Mass/volume] in Serum or PlasmaOrdered By: Krzysztof Salazar on 09-20-2023 Immunoglobulin light chains.lambda.free [Mass/Vol] 26.4 mg/L 5.7-26.3 [facility] Iron [Mass/volume] in Serum or PlasmaOrdered By: Krzysztof Salazar on 09-20-2023 Iron [Mass/Vol] 74 ug/dL Normal 50-212 [facility] Comment on above: Performed By: #### F ER, CMP, CBC, FE and TIBC ####[facility]#### TOMA SERUM, SPE, KAPPA ####[facility] , Iron and TIBC Profileon 08-24 % Iron Saturation 21.5 % Normal 20-50 [facility] Comment on above: Performed By: #### F ER, CMP, CBC, FE and TIBC ####[facility]#### TOMA SERUM, SPE, KAPPA ####[facility] , Total Iron Binding Capacity 344 ug/dL Normal 255-450 [facility] Comment on above: Performed By: #### F ER, CMP, CBC, FE and TIBC ####[facility] [place] [address] [place]#### TOMA SERUM, SPE, KAPPA ####[facility] , Iron binding capacity [Mass/ volume] in Serum or PlasmaOrdered By: Krzysztof Salazar on 09-20-2023 Iron binding capacity [Mass/Vol] 344 ug/dL 255-450 [facility] Iron saturation [Mass Fracti on] in Serum or PlasmaOrdered By: Krzysztof Salazar on 09-20-2023 Iron saturation [Mass fraction] 21.5 % 20-50 [facility] Leukocytes [#/volume] correc silverio for nucleated erythrocytes in Blood by Automated counOrdered By: Krzysztof Salazar on 09-20-2023 WBC corrected for nucl RBC Auto (Bld) [#/Vol] 8.5 10*3/uL 3.8-11.6 [facility] Leukocytes [#/volume] in Blo od by Automated countOrdered By: Krzysztof Salazar on 09-20-2023 WBC (Bld) [#/Vol] 8.5 10*3/uL Normal 3.8-11.6 [facility] Comment on above: Performed By: #### F ER, CMP, CBC, FE and TIBC #### [place] [address] [place] #### TOMA SERUM, SPE, KAPPA #### [facility] , Lymphocytes [#/volume] in Bl ood by Automated countOrdered By: Krzysztof Salazar on 09-20-2023 Lymphocytes (Bld) [#/Vol] 2.1 10*3/uL Normal 1.00-4.8 [facility] Comment on above: Performed By: #### F ER, CMP, CBC, FE and TIBC #### [address] #### TOMA SERUM, SPE, KAPPA #### [facility] , Lymphocytes/100 leukocytes i n Blood by Automated countOrdered By: Krzysztof Salazar on 09-20-2023 Lymphocytes/100 WBC (Bld) 24.7 % Normal . [facility] Comment on above: Performed By: #### F ER, CMP, CBC, FE and TIBC #### [place] [address] [place] #### TOMA SERUM, SPE, KAPPA #### [facility] , MCH [Entitic mass] by Automa silverio countOrdered By: Krzysztof Salazar on 09-20-2023 MCH (RBC) [Entitic mass] 25.8 pg Normal 24.7-34.3 [facility] Comment on above: Performed By: #### F ER, CMP, CBC, FE and TIBC #### [place] [address] [place] #### TOMA SERUM, SPE, KAPPA #### [facility] , MCHC Auto (RBC) [Mass/Vol]Or dered By: Krzysztof Salazar on 09-20-2023 MCHC (RBC) [Mass/Vol] 32.7 g/dL 32.0-35.0 [facility] MCV [Entitic volume] by Auto mated countOrdered By: Krzysztof Salazar on 09-20-2023 MCV (RBC) [Entitic vol] 78.7 fL Low 80-100 [facility] Comment on above: Performed By: #### F ER, CMP, CBC, FE and TIBC #### [address] #### TOMA SERUM, SPE, KAPPA #### [facility] , Neutrophils [#/volume] in Bl ood by Automated countOrdered By: Krzysztof Salazar on 09-20-2023 Neutrophils (Bld) [#/Vol] 5.5 10*3/uL Normal 1.8-7.7 [facility] Comment on above: Performed By: #### F ER, CMP, CBC, FE and TIBC #### [facility] [address] [place] [address] #### TOMA SERUM, SPE, KAPPA #### [facility] , No Panel InformationOrdered By: Krzysztof Salazar on 09-20-2023 Estimated GFR (CKD-EPI) > 60.0 mL/Min [facility] Creatinine Clearance (Chem 143.32 [facility] Protein Electrophoresis M-Antwan Not observed g/dL Not Observed [facility] Protein Electrophoresis Note See comment . [facility] Comment on above: Protein electrophore sis scan will follow via computer,mail, or short filler bunch machine operator delivery. Serum Immunofixation See comment . [facility] Comment on above: No monoclonality det ected. Nucleated erythrocytes [Pres ence] in Blood by Automated countOrdered By: Krzysztof Salazar on 09-20-2023 Nucleated RBC Auto Ql (Bld) 0.1 /100{WBC} 0-0.5 [facility] Platelet mean volume [Entiti c volume] in Blood by Automated countOrdered By: Krzysztof Salazar on 09-20-2023 Platelet mean volume (Bld) [Entitic vol] 8.8 fL Normal 6.3-10.7 [facility] Comment on above: Performed By: #### F ER, CMP, CBC, FE and TIBC #### [facility] [address] [place] [address] [place] #### TOMA SERUM, SPE, KAPPA #### [facility] , Platelets [#/volume] in Bloo d by Automated countOrdered By: Krzyzstof Salazar on 09-20-2023 Platelets (Bld) [#/Vol] 271 10*3/uL Normal 150-450 [facility] Comment on above: Performed By: #### F ER, CMP, CBC, FE and TIBC #### [facility] [address] #### TOMA SERUM, SPE, KAPPA #### [facility] , Potassium [Moles/volume] in Serum or PlasmaOrdered By: Krzysztof Salazar on 09-20-2023 Potassium [Moles/Vol] 4.4 mmol/L Normal 3.5-5.1 [facility] Comment on above: Performed By: #### F ER, CMP, CBC, FE and TIBC #### [facility] [address] #### TOMA SERUM, SPE, KAPPA #### [facility] , Protein Electrophoresis, Ser umon 09-20-2023 Mecns-1-Wnwogkun 0.3 g/dL Normal 0.0-0.4 [facility] Comment on above: Performed By: #### F ER, CMP, CBC, FE and TIBC ####[facility] [place] [address] [place]#### TOMA SERUM, SPE, KAPPA ####[facility] , Gevhf-0-Xwuohrqj 0.8 g/dL Normal 0.4-1.0 [facility] Comment on above: Performed By: #### F ER, CMP, CBC, FE and TIBC ####[facility] [place] [address] [place]#### TOMA SERUM, SPE, KAPPA ####[facility] , Beta Globulin 1.2 g/dL Normal 0.7-1.3 [facility] Comment on above: Performed By: #### F ER, CMP, CBC, FE and TIBC ####[facility]#### TOMA SERUM, SPE, KAPPA ####[facility] , Gamma Globulin 1.8 g/dL Normal 0.4-1.8 [facility] Comment on above: Performed By: #### F ER, CMP, CBC, FE and TIBC ####[address]#### TOMA SERUM, SPE, KAPPA ####[facility] , M-Antwan Not Observed Normal Not Observed [facility] Comment on above: Performed By: #### F ER, CMP, CBC, FE and TIBC ####[address]#### TOMA SERUM, SPE, KAPPA ####[facility] , SPE-Note Normal . [facility] Comment on above: Result Comment: Prot ein electrophoresis scan will follow via computer, mail, or short filler bunch machine operator delivery. Performed By: #### F ER, CMP, CBC, FE and TIBC ####[address]#### TOMA SERUM, SPE, KAPPA ####[facility] , Protein [Mass/volume] in Ser um or PlasmaOrdered By: Krzysztof Salazar on 09-20-2023 Protein [Mass/Vol] 7.7 g/dL Normal 6.4-8.9 [facility] Comment on above: Performed By: #### F ER, CMP, CBC, FE and TIBC #### [facility] [address] #### TOMA SERUM, SPE, KAPPA #### [facility] , Protein [Mass/Vol] 7.8 g/dL Normal 6.0-8.5 [facility] Comment on above: Performed By: #### F ER, CMP, CBC, FE and TIBC ####[address]#### TOMA SERUM, SPE, KAPPA ####[facility] , Serum globulin measurement ( mass/volume)Ordered By: Krzysztof Salazar on 09-20-2023 Globulin (S) [Mass/Vol] 4.0 g/dL High 2.2-3.9 [facility] Comment on above: Performed By: #### F ER, CMP, CBC, FE and TIBC ####[address]#### TOMA SERUM, SPE, KAPPA ####[facility] , Serum globulin measurement b y calculation (mass/volume)Ordered By: Krzysztof Salazar on 09-20-2023 Globulin (S) [Mass/Vol] 3.5 g/dL Normal [facility] Comment on above: Performed By: #### F ER, CMP, CBC, FE and TIBC #### [address] #### TOMA SERUM, SPE, KAPPA #### [facility] , Serum or plasma albumin/glob ulin mass ratioOrdered By: Krzysztof Salazar on 09-20-2023 Albumin/Globulin [Mass ratio] 1.2 {ratio} Normal [facility] Comment on above: Performed By: #### F ER, CMP, CBC, FE and TIBC #### [place] [address] [place] #### TOMA SERUM, SPE, KAPPA #### [facility] , Albumin/Globulin [Mass ratio] 1.0 {ratio} Normal 0.7-1.7 [facility] Comment on above: Performed By: #### F ER, CMP, CBC, FE and TIBC ####[place] [address] [place]#### TOMA SERUM, SPE, KAPPA ####[facility] , Serum or plasma alpha 1 glob ulin measurement by electrophoresis (mass/volume)Ordered By: Krzysztof Salazar on 09-20-2023 Alpha 1 globulin Elph [Mass/Vol] 0.3 g/dL 0.0-0.4 [facility] Serum or plasma alpha 2 glob ulin measurement by electrophoresis (mass/volume)Ordered By: Krzysztof Salazar on 09-20-2023 Alpha 2 globulin Elph [Mass/Vol] 0.8 g/dL 0.4-1.0 [facility] Serum or plasma anion gap de terminationOrdered By: Krzysztof Salazar on 09-20-2023 Anion gap [Moles/Vol] 11.0 mmol/L Normal 6.0-15.0 [facility] Comment on above: Performed By: #### F ER, CMP, CBC, FE and TIBC #### [facility] [address] [place] [address] #### TOMA SERUM, SPE, KAPPA #### [facility] , Serum or plasma beta globuli n measurement by electrophoresis (mass/volume)Ordered By: Krzysztof Salazar on 09-20-2023 Beta globulin Elph [Mass/Vol] 1.2 g/dL 0.7-1.3 [facility] Serum or plasma gamma globul in measurement by electrophoresis (mass/volume)Ordered By: Krzysztof Salazar on 09-20-2023 Gamma globulin Elph [Mass/Vol] 1.8 g/dL 0.4-1.8 [facility] Sodium [Moles/volume] in Ser um or PlasmaOrdered By: Krzysztof Salazar on 09-20-2023 Sodium [Moles/Vol] 136 mmol/L Normal 136-145 [facility] Comment on above: Performed By: #### F ER, CMP, CBC, FE and TIBC #### [facility] [address] [place] [address] [place] #### TOMA SERUM, SPE, KAPPA #### [facility] , Transferrin [Mass/volume] in Serum or PlasmaOrdered By: Krzysztof Salazar on 09-20-2023 Transferrin [Mass/Vol] 246 mg/dL Normal 203-362 [facility] Comment on above: Performed By: #### F ER, CMP, CBC, FE and TIBC ####[facility]#### TOMA SERUM, SPE, KAPPA ####[facility] , Urea nitrogen [Mass/volume] in Serum or PlasmaOrdered By: Krzysztof Salazar on 09-20-2023 Urea nitrogen [Mass/Vol] 16 mg/dL Normal 7-25 [facility] Comment on above: Performed By: #### F ER, CMP, CBC, FE and TIBC #### [facility] [address] #### TOMA SERUM, SPE, KAPPA #### [facility] , US pelvic completeon 024 US pelvic complete [facility] [address] [place] [address] Ultrasound Report Signed Patient: Geeta Shelton MR#: [id number] : 1970 Acct:[id number] Age/Sex: 53 / F ADM Date: 09/07/23 Loc: Room: Type: [facility] Attending Dr: Elizabeth Alvarado APRN, NP-C Ordering Provider: Elizabeth Alvarado APRN, CNP Date of Service: 09/07/23 US/US transvaginal: Abnormal vaginal bleeding ([id number]) US/US pelvic complete: Abnormal vaginal bleeding Copies to: Elizabeth Alvarado APRN, CNP Pelvic ultrasound. Reason for exam: Vaginal bleeding. Comparison: none Technique: Transabdominal imaging of the uterus and ovaries was performed. Transvaginal imaging of the uterus and ovaries was also obtained. Additional spectral Doppler analysis of the ovaries was also obtained. Findings: Uterus measures 8.3 x 3.4 x 5.9 cm. The myometrium is heterogenous in echotexture without measurable fibroid. Endometrium measures 6 mm without focal abnormality. Right ovary measures 3.1 x 2.6 x 2.7 cm. Left ovary measures 2.6 x 1.8 x 2.2 cm. Follicular changes are seen within the ovaries. No adnexal mass. No free fluid. Normal arterial and venous Doppler waveforms of the ovaries. US/US transvaginal Impression: Heterogenous appearing myometrium without measurable fibroid. If further evaluation is needed, pelvic MRI with and without IV contrast is suggested. No endometrial or ovarian abnormality is seen. Impression dictated by: Jesus Davis Jr., D.OAntonia09/07/2023 2:39 PM Dictation Location: [place] [address] Tech: Jessica Saenz Transcribed By: SEJAL 09/07/23 1439 Dictated By: Jesus Davis Jr, DO 09/07/23 1437 Signed By: 09/07/23 1439 Normal [facility] Alanine aminotransferase [En zymatic activity/volume] in Serum or PlasmaOrdered By: Elizabeth Alvarado on 08-24-2023 ALT [Catalytic activity/Vol] 28 U/L Normal 7-52 [facility] Comment on above: Order Comment: Reaso n for Exam Type 2 diabetes mellitus without complication, without long- Performed By: #### T SH3 wRFLX, LIPID, CBC, CMP #### [facility] [address] [place] [address] [place] Albumin [Mass/volume] in Ser um or Plasma by Bromocresol green (BCG) dye binding methoOrdered By: Elizabeth Alvarado on 08-24-2023 Albumin BCG dye [Mass/Vol] 4.3 g/dL 3.5-5.7 [facility] Alkaline phosphatase [Enzyma tic activity/volume] in Serum or PlasmaOrdered By: Elizabeth Alvarado on 08-24-2023 ALP [Catalytic activity/Vol] 86 U/L Normal 34-104 [facility] Comment on above: Order Comment: Reaso n for Exam Type 2 diabetes mellitus without complication, without long- Performed By: #### T SH3 wRFLX, LIPID, CBC, CMP #### [facility] [address] [place] [address] [place] Aspartate aminotransferase [ Enzymatic activity/volume] in Serum or PlasmaOrdered By: Elizabeth Alvarado on 08-24-2023 AST [Catalytic activity/Vol] 28 U/L Normal 13-39 [facility] Comment on above: Order Comment: Reaso n for Exam Type 2 diabetes mellitus without complication, without long- Performed By: #### T SH3 wRFLX, LIPID, CBC, CMP #### [facility] [address] Automated basophil %Ordered By: Elizabeth Alvarado on 08-24-2023 Basophils/100 WBC (Bld) 0.7 % Normal . [facility] Comment on above: Order Comment: Reaso n for Exam Type 2 diabetes mellitus without complication, without long- Performed By: #### T SH3 wRFLX, LIPID, CBC, CMP #### [facility] [address] Automated basophil countOrde red By: Elizabeth Alvarado on 08-24-2023 Basophils (Bld) [#/Vol] 0.1 10*3/uL Normal 0.0-0.2 [facility] Comment on above: Order Comment: Reaso n for Exam Type 2 diabetes mellitus without complication, without long- Result Comment: PERF ORMED BY: [place] [address] PATHOLOGIST DERRICK BUILDER MELODY ELAM M.D. Performed By: #### T SH3 wRFLX, LIPID, CBC, CMP #### [address] Automated blood monocyte cou ntOrdered By: Elizabeth Alvarado on 08-24-2023 Monocytes (Bld) [#/Vol] 0.8 10*3/uL Normal 0.0-0.8 [facility] Comment on above: Order Comment: Reaso n for Exam Type 2 diabetes mellitus without complication, without long- Performed By: #### T SH3 wRFLX, LIPID, CBC, CMP #### [place] [address] [place] Automated eosinophil %Ordere d By: Elizabeth Alvarado on 08-24-2023 Eosinophils/100 WBC (Bld) 3.3 % Normal . [facility] Comment on above: Order Comment: Reaso n for Exam Type 2 diabetes mellitus without complication, without long- Performed By: #### T SH3 wRFLX, LIPID, CBC, CMP #### [facility] [address] Automated eosinophil countOr dered By: Elizabeth Alvarado on 08-24-2023 Eosinophils (Bld) [#/Vol] 0.3 10*3/uL Normal 0.0-0.45 [facility] Comment on above: Order Comment: Reaso n for Exam Type 2 diabetes mellitus without complication, without long- Performed By: #### T SH3 wRFLX, LIPID, CBC, CMP #### [facility] [address] Automated monocyte %Ordered By: Elizabeth Alvarado on 08-24-2023 Monocytes/100 WBC (Bld) 8.1 % Normal . [facility] Comment on above: Order Comment: Reaso n for Exam Type 2 diabetes mellitus without complication, without long- Performed By: #### T SH3 wRFLX, LIPID, CBC, CMP #### [facility] [address] Automated neutrophil %Ordere d By: Elizabeth Alvarado on 08-24-2023 Neutrophils/100 WBC (Bld) 62.4 % Normal . [facility] Comment on above: Order Comment: Reaso n for Exam Type 2 diabetes mellitus without complication, without long- Performed By: #### T SH3 wRFLX, LIPID, CBC, CMP #### [facility] [address] [place] [address] [place] Bilirubin.total [Mass/volume ] in Serum or PlasmaOrdered By: Elizabeth Alvarado on 08-24-2023 Bilirubin [Mass/Vol] 0.4 mg/dL Normal 0.3-1.0 [facility] Comment on above: Order Comment: Reaso n for Exam Type 2 diabetes mellitus without complication, without long- Performed By: #### T SH3 wRFLX, LIPID, CBC, CMP #### [facility] [address] [place] [id number] [place] Calcium [Mass/volume] in Ser um or PlasmaOrdered By: Elizabeth Alvarado on 08-24-2023 Calcium [Mass/Vol] 9.4 mg/dL Normal 8.6-10.3 [facility] Comment on above: Order Comment: Reaso n for Exam Type 2 diabetes mellitus without complication, without long- Performed By: #### T SH3 wRFLX, LIPID, CBC, CMP #### [facility] [address] [place] [id number] [place] Carbon dioxide, total [Moles /volume] in Serum or PlasmaOrdered By: Elizabeth Alvarado on 08-24-2023 CO2 [Moles/Vol] 29.2 mmol/L Normal 21.0-31.0 [facility] Comment on above: Order Comment: Reaso n for Exam Type 2 diabetes mellitus without complication, without long- Performed By: #### T SH3 wRFLX, LIPID, CBC, CMP #### [facility] [address] [place] [id number] [place] Chloride [Moles/volume] in S hugo or PlasmaOrdered By: Elizabeth Alvarado on 08-24-2023 Chloride [Moles/Vol] 96 mmol/L Low 98-107 [facility] Comment on above: Order Comment: Reaso n for Exam Type 2 diabetes mellitus without complication, without long- Performed By: #### T SH3 wRFLX, LIPID, CBC, CMP #### [facility] [address] [place] [id number] [place] Cholesterol [Mass/volume] in Serum or PlasmaOrdered By: Elizabeth Alvarado on 08-24-2023 Cholesterol [Mass/Vol] 160 mg/dL Normal 140-200 [facility] Comment on above: Chol less than 200 m g/dl low riskChol 201-239 mg/dl borderline riskChol 240 mg/dl and greater high risk Order Comment: Reaso n for Exam Type 2 diabetes mellitus without complication, without long- Result Comment: Chol less than 200 mg/dl low risk Chol 201-239 mg/dl borderline risk Chol 240 mg/dl and greater high risk Performed By: #### T SH3 wRFLX, LIPID, CBC, CMP #### [facility] [address] Cholesterol in LDL Calc [Mas s/Vol]Ordered By: Elizabeth Alvarado on 08-24-2023 Cholesterol in LDL [Mass/Vol] 78 mg/dL 0-100 [facility] Comment on above: LDL ATP III CLASSIFI CATIONLDL less than 100 mg/dL OptimalLDL 100-129 mg/dL Near or above optimalLDL 130-159 mg/dL Borderline highLDL 160-189 mg/dL HighLDL greater than 189 mg/dL Very high Cholesterol in VLDL Calc [Ma ss/Vol]Ordered By: Elizabeth Alvarado on 08-24-2023 Cholesterol in VLDL [Mass/Vol] 22 mg/dL [facility] Complete Blood Count Auto Di ffon 08-24-2023 Mean Corpuscular HGB Conc 32.5 g/dL Normal 32.0-35.0 [facility] Comment on above: Order Comment: Reaso n for Exam Type 2 diabetes mellitus without complication, without long- Performed By: #### T SH3 wRFLX, LIPID, CBC, CMP #### [facility] [address] NRBC% 0.2 /100{WBC} Normal 0-0.5 [facility] Comment on above: Order Comment: Reaso n for Exam Type 2 diabetes mellitus without complication, without long- Performed By: #### T SH3 wRFLX, LIPID, CBC, CMP #### [facility] [address] Comprehensive Metabolic Pane gretel 08-24-2023 Albumin [Mass/Vol] 4.3 g/dL Normal 3.5-5.7 [facility] Comment on above: Order Comment: Reaso n for Exam Type 2 diabetes mellitus without complication, without long- Performed By: #### T SH3 wRFLX, LIPID, CBC, CMP #### [facility] [address] [place] [address] [place] GFR/1.73 sq M.predicted MDRD (S/P/Bld) [Vol rate/Area] mL/min/{1.73_m2} Normal [facility] Comment on above: Order Comment: Reaso n for Exam Type 2 diabetes mellitus without complication, without long- Performed By: #### T SH3 wRFLX, LIPID, CBC, CMP #### [facility] [address] Creatinine [Mass/volume] in Serum or PlasmaOrdered By: Elizabeth Alvarado on 08-24-2023 Creatinine [Mass/Vol] 0.65 mg/dL Normal 0.60-1.20 [facility] Comment on above: Order Comment: Reaso n for Exam Type 2 diabetes mellitus without complication, without long- Performed By: #### T SH3 wRFLX, LIPID, CBC, CMP #### [facility] [address] [place] [address] [place] Creatinine [Mass/volume] in UrineOrdered By: Elizabeth Alvarado on 08-24-2023 Creatinine (U) [Mass/Vol] 76.0 mg/dL [facility] Comment on above: No reference range e stablished Erythrocyte distribution wid th [Ratio] by Automated countOrdered By: Elizabeth Alvarado on 08-24-2023 Erythrocyte distribution width (RBC) [Ratio] 15.8 % High 11.9-15.3 [facility] Comment on above: Order Comment: Reaso n for Exam Type 2 diabetes mellitus without complication, without long- Performed By: #### T SH3 wRFLX, LIPID, CBC, CMP #### [facility] [address] [place] [address] [place] Erythrocytes [#/volume] in B lood by Automated countOrdered By: Elizabeth Alvarado on 08-24-2023 RBC (Bld) [#/Vol] 5.06 10*6/uL High 3.60-5.00 [facility] Comment on above: Order Comment: Reaso n for Exam Type 2 diabetes mellitus without complication, without long- Performed By: #### T SH3 wRFLX, LIPID, CBC, CMP #### [facility] [address] [place] [address] [place] Glucose [Mass/volume] in Ser um or PlasmaOrdered By: Elizabeth Alvarado on 08-24-2023 Glucose [Mass/Vol] 92 mg/dL Normal 70-100 [facility] Comment on above: ADA recommended refe rence rangeRandom Glucose Reference Range is dependent on time and content of last meal. Glucose of more than 200 mg/dL in a nonstressed, ambulatory subject supports the diagnosis of Diabetes Mellitus. Order Comment: Reaso n for Exam Type 2 diabetes mellitus without complication, without long- Result Comment: [place] om Glucose Reference Range is dependent on time and content of last meal. Glucose of more than 200 mg/dL in a nonstressed, ambulatory subject supports the diagnosis of Diabetes Mellitus. ADA recommended reference range Performed By: #### T SH3 wRFLX, LIPID, CBC, CMP #### [facility] [address] Hematocrit [Volume Fraction] of Blood by Automated countOrdered By: Elizabeth Alvarado on 08-24-2023 Hematocrit (Bld) [Volume fraction] 40.6 % Normal 34.0-46.4 [facility] Comment on above: Order Comment: Reaso n for Exam Type 2 diabetes mellitus without complication, without long- Performed By: #### T SH3 wRFLX, LIPID, CBC, CMP #### [facility] [address] [place] [address] [place] Hemoglobin [Mass/volume] in BloodOrdered By: Elizabeth Alvarado on 08-24-2023 Hemoglobin (Bld) [Mass/Vol] 13.2 g/dL Normal 11.8-15.4 [facility] Comment on above: Order Comment: Reaso n for Exam Type 2 diabetes mellitus without complication, without long- Performed By: #### T SH3 wRFLX, LIPID, CBC, CMP #### [facility] [address] [place] [address] [place] Leukocytes [#/volume] correc silverio for nucleated erythrocytes in Blood by Automated counOrdered By: Elizabeth Alvarado on 08-24-2023 WBC corrected for nucl RBC Auto (Bld) [#/Vol] 10.2 10*3/uL 3.8-11.6 [facility] Leukocytes [#/volume] in Blo od by Automated countOrdered By: Elizabeth Alvarado on 08-24-2023 WBC (Bld) [#/Vol] 10.2 10*3/uL Normal 3.8-11.6 [facility] Comment on above: Order Comment: Reaso n for Exam Type 2 diabetes mellitus without complication, without long- Performed By: #### T SH3 wRFLX, LIPID, CBC, CMP #### [facility] [address] Lipid Panelon 08-24-2023 LDL Cholesterol,Calculated 78 mg/dL Normal 0-100 [facility] Comment on above: Order Comment: Reaso n for Exam Type 2 diabetes mellitus without complication, without long- Result Comment: LDL ATP III CLASSIFICATION LDL less than 100 mg/dL Optimal LDL 100-129 mg/dL Near or above optimal LDL 130-159 mg/dL Borderline high LDL 160-189 mg/dL High LDL greater than 189 mg/dL Very high Performed By: #### T SH3 wRFLX, LIPID, CBC, CMP #### [facility] [address] Triglyceride w/Reflex 112 mg/dL Normal 0-149 [facility] Comment on above: Order Comment: Reaso n for Exam Type 2 diabetes mellitus without complication, without long- Result Comment: TRIG ATP III CLASSIFICATION TRIG less than 150 mg/dL Normal TRIG 150-199 mg/dL Borderline high TRIG 200-500 mg/dL High TRIG greater than 500 mg/dL Very high Standard traceable to the Center for Disease Conrtrol and Prevention (CDC) test method. Performed By: #### T SH3 wRFLX, LIPID, CBC, CMP #### [facility] [address] VLDL CHOLESTEROL 22 mg/dL Normal [facility] Comment on above: Order Comment: Reaso n for Exam Type 2 diabetes mellitus without complication, without long- Performed By: #### T SH3 wRFLX, LIPID, CBC, CMP #### [facility] [address] Lymphocytes [#/volume] in Bl ood by Automated countOrdered By: Elizabeth Alvarado on 08-24-2023 Lymphocytes (Bld) [#/Vol] 2.6 10*3/uL Normal 1.00-4.8 [facility] Comment on above: Order Comment: Reaso n for Exam Type 2 diabetes mellitus without complication, without long- Performed By: #### T SH3 wRFLX, LIPID, CBC, CMP #### [facility] [address] Lymphocytes/100 leukocytes i n Blood by Automated countOrdered By: Elizabeth Alvarado on 08-24-2023 Lymphocytes/100 WBC (Bld) 25.5 % Normal . [facility] Comment on above: Order Comment: Reaso n for Exam Type 2 diabetes mellitus without complication, without long- Performed By: #### T SH3 wRFLX, LIPID, CBC, CMP #### [address] MCH [Entitic mass] by Automa silverio countOrdered By: Elizabeth Alvarado on 08-24-2023 MCH (RBC) [Entitic mass] 26.1 pg Normal 24.7-34.3 [facility] Comment on above: Order Comment: Reaso n for Exam Type 2 diabetes mellitus without complication, without long- Performed By: #### T SH3 wRFLX, LIPID, CBC, CMP #### [facility] [address] [place] [address] MCHC Auto (RBC) [Mass/Vol]Or dered By: Elizabeth Alvarado on 08-24-2023 MCHC (RBC) [Mass/Vol] 32.5 g/dL 32.0-35.0 [facility] MCV [Entitic volume] by Auto mated countOrdered By: Elizabeth Alvarado on 08-24-2023 MCV (RBC) [Entitic vol] 80.3 fL Normal 80-100 [facility] Comment on above: Order Comment: Reaso n for Exam Type 2 diabetes mellitus without complication, without long- Performed By: #### T SH3 wRFLX, LIPID, CBC, CMP #### [address] MicroAlb Creat Ratio,Uon Creatinine, Urine (Random) 76.0 mg/dL Normal [facility] Comment on above: Order Comment: Reaso n for Exam Type 2 diabetes mellitus without complication, without long- Result Comment: No r eference range established Performed By: #### U RMACRERAT #### [address] Microalbumin/Creatinine Ratio Not performed Normal 0.0-30.0 [facility] Comment on above: Order Comment: Reaso n for Exam Type 2 diabetes mellitus without complication, without long- Result Comment: PERF ORMED BY: [place] [address] PATHOLOGIST DERRICK BUILDER MELODY ELAM M.D. Performed By: #### U RMACRERAT #### [address] Microalbumin [Mass/volume] i n UrineOrdered By: Elizabeth Alvarado on 08-24-2023 Albumin DL <= 20 mg/L (U) [Mass/Vol] mg/dL High 0.0-1.8 [facility] Comment on above: Order Comment: Reaso n for Exam Type 2 diabetes mellitus without complication, without long- Performed By: #### U RMACRERAT #### [address] Neutrophils [#/volume] in Bl ood by Automated countOrdered By: Elizabeth Alvarado on 08-24-2023 Neutrophils (Bld) [#/Vol] 6.4 10*3/uL Normal 1.8-7.7 [facility] Comment on above: Order Comment: Reaso n for Exam Type 2 diabetes mellitus without complication, without long- Performed By: #### T SH3 wRFLX, LIPID, CBC, CMP #### [facility] [address] [place] [address] No Panel InformationOrdered By: Elizabeth Alvarado on 08-24-2023 Estimated GFR (CKD-EPI) > 60.0 mL/Min [facility] Creatinine Clearance (Chem N/A [facility] Nucleated erythrocytes [Pres ence] in Blood by Automated countOrdered By: Elizabeth Alvarado on 08-24-2023 Nucleated RBC Auto Ql (Bld) 0.2 /100{WBC} 0-0.5 [facility] Platelet mean volume [Entiti c volume] in Blood by Automated countOrdered By: Elizabeth Alvarado on 08-24-2023 Platelet mean volume (Bld) [Entitic vol] 9.8 fL Normal 6.3-10.7 [facility] Comment on above: Order Comment: Reaso n for Exam Type 2 diabetes mellitus without complication, without long- Performed By: #### T SH3 wRFLX, LIPID, CBC, CMP #### [facility] [address] [place] [address] [place] Platelets [#/volume] in Bloo d by Automated countOrdered By: Elizabeth Alvarado on 08-24-2023 Platelets (Bld) [#/Vol] 283 10*3/uL Normal 150-450 [facility] Comment on above: Order Comment: Reaso n for Exam Type 2 diabetes mellitus without complication, without long- Performed By: #### T SH3 wRFLX, LIPID, CBC, CMP #### [facility] [address] [place] [address] [place] Potassium [Moles/volume] in Serum or PlasmaOrdered By: Elizabeth Alvarado on 08-24-2023 Potassium [Moles/Vol] 4.3 mmol/L Normal 3.5-5.1 [facility] Comment on above: Order Comment: Reaso n for Exam Type 2 diabetes mellitus without complication, without long- Performed By: #### T SH3 wRFLX, LIPID, CBC, CMP #### [facility] [address] [place] [address] [place] Protein [Mass/volume] in Ser um or PlasmaOrdered By: Elizabeth Alvarado on 08-24-2023 Protein [Mass/Vol] 7.7 g/dL Normal 6.4-8.9 [facility] Comment on above: Order Comment: Reaso n for Exam Type 2 diabetes mellitus without complication, without long- Performed By: #### T SH3 wRFLX, LIPID, CBC, CMP #### [facility] [address] Serum globulin measurement b y calculation (mass/volume)Ordered By: Elizabeth Alvarado on 08-24-2023 Globulin (S) [Mass/Vol] 3.4 g/dL Normal [facility] Comment on above: Order Comment: Reaso n for Exam Type 2 diabetes mellitus without complication, without long- Performed By: #### T SH3 wRFLX, LIPID, CBC, CMP #### [facility] [address] Serum or plasma albumin/glob ulin mass ratioOrdered By: Elizabeth Alvarado on 08-24-2023 Albumin/Globulin [Mass ratio] 1.3 {ratio} Normal [facility] Comment on above: Order Comment: Reaso n for Exam Type 2 diabetes mellitus without complication, without long- Performed By: #### T SH3 wRFLX, LIPID, CBC, CMP #### [facility] [address] Serum or plasma anion gap de terminationOrdered By: Elizabeth Alvarado on 08-24-2023 Anion gap [Moles/Vol] 18.1 mmol/L High 6.0-15.0 [facility] Comment on above: Order Comment: Reaso n for Exam Type 2 diabetes mellitus without complication, without long- Performed By: #### T SH3 wRFLX, LIPID, CBC, CMP #### [facility] [address] [place] [address] Serum or plasma high density lipoprotein (HDL) cholesterol measurementOrdered By: Elizabeth Alvarado on 08-24-2023 Cholesterol in HDL [Mass/Vol] 60 mg/dL Normal 23-92 [facility] Comment on above: HDL CHOL ATP-III CLA SSIFICATION Cardiovascular RiskHDL > or equal to 60 mg/dL LOWHDL < 40 mg/dL HIGH Order Comment: Reaso n for Exam Type 2 diabetes mellitus without complication, without long- Result Comment: HDL CHOL ATP-III CLASSIFICATION Cardiovascular Risk HDL > or equal to 60 mg/dL LOW HDL < 40 mg/dL HIGH Performed By: #### T SH3 wRFLX, LIPID, CBC, CMP #### [facility] [address] Serum or plasma total choles terol/high density lipoprotein (HDL) cholesterol mass ratOrdered By: Elizabeth Alvarado on 08-24-2023 Cholesterol.total/Choles terol in HDL [Mass ratio] 2.7 {ratio} Normal <5.0 [facility] Comment on above: Order Comment: Reaso n for Exam Type 2 diabetes mellitus without complication, without long- Performed By: #### T SH3 wRFLX, LIPID, CBC, CMP #### [facility] [address] [place] [address] [place] Sodium [Moles/volume] in Ser um or PlasmaOrdered By: Elizabeth Alvarado on 08-24-2023 Sodium [Moles/Vol] 139 mmol/L Normal 136-145 [facility] Comment on above: Order Comment: Reaso n for Exam Type 2 diabetes mellitus without complication, without long- Performed By: #### T SH3 wRFLX, LIPID, CBC, CMP #### [facility] [address] [place] [address] Thyroid Stim Hormone w/Rflxo n 08-24-2023 Thyroid Stim Hormone w/Rflx 2.40 u[iU]/mL Normal 0.45-5.33 [facility] Comment on above: Order Comment: Reaso n for Exam Type 2 diabetes mellitus without complication, without long- Result Comment: PERF ORMED BY: [place] [address] PATHOLOGIST [employer]ERRICK [employer]ILDER MELODY ELAM M.D. Performed By: #### T SH3 wRFLX, LIPID, CBC, CMP #### [facility] [address] [place] [address] [place] Thyrotropin [Units/volume] i n Serum or PlasmaOrdered By: Elizabeth Alvarado on 08-24-2023 TSH Qn 2.40 m[IU]/L 0.45-5.33 [facility] Triglyceride [Mass/volume] i n Serum or PlasmaOrdered By: Elizabeth Alvarado on 08-24-2023 Triglyceride [Mass/Vol] 112 mg/dL 0-149 [facility] Comment on above: TRIG ATP III CLASSIF ICATIONTRIG less than 150 mg/dL NormalTRIG 150-199 mg/dL Borderline highTRIG 200-500 mg/dL High TRIG greater than 500 mg/dL Very highStandard traceable to the Center for Disease Conrtrol and Prevention (CDC) test method. Urea nitrogen [Mass/volume] in Serum or PlasmaOrdered By: Elizabeth Alvarado on 08-24-2023 Urea nitrogen [Mass/Vol] 17 mg/dL Normal 7-25 [facility] Comment on above: Order Comment: Reaso n for Exam Type 2 diabetes mellitus without complication, without long- Performed By: #### T SH3 wRFLX, LIPID, CBC, CMP #### [address] Urine microalbumin/creatinin e mass ratioOrdered By: Elizabeth Alvarado on 08-24-2023 Albumin/Creatinine DL <= 20 mg/L (U) [Mass ratio] TNP [facility] Comment on above: Test not performed MM screening mammo BI w/CADo n 05-10-2023 MM screening mammo BI w/CAD [facility] [place] [address] [place] [address] Mammography Report Signed Patient: Geeta Shelton MR#: [id number] : 1970 Acct:[id number] Age/Sex: 53 / F ADM Date: 05/10/23 Loc: [place] Room: Type: [facility] Attending Dr: Elizabeth Alvarado APRN, FACILITY SERVICE ASSOCIATE-C Copies to: Elizabeth Alvarado APRN, CNP Ordering Provider: Elizabeth Alvarado APRN, CNP Date of Service: 05/10/23 MM/MM screening mammo BI w/CAD: Screening mammogram for breast cancer CLINICAL DATA: Screening for malignancy. BILATERAL SCREENING MAMMOGRAMS - FULL FIELD DIGITAL WITH TOMOSYNTHESIS AND CAD Tomosynthesis craniocaudal and mediolateral oblique views of both breasts were obtained using low- dose digital technique. Comparison is made to prior studies from April 09, 2015 through May 06, 2021. This examination was reviewed with the aid of CAD. There are scattered fibroglandular densities. Intramammary lymph nodes are again seen. There are no developing masses, typically malignant calcifications or architectural distortion. There has been no significant interval change. MM/MM screening mammo BI w/CAD IMPRESSION: NO MAMMOGRAPHIC EVIDENCE OF MALIGNANCY. ROUTINE FOLLOW-UP IS RECOMMENDED IN ONE YEAR. RESULT CODE: 2 Benign Findings(s) DENSITY CODE: 2 (approximately 25-50% glandular) FOLLOW UP: 1YR The false-negative rate of mammography is approximately 10-percent. Management of a palpable abnormality must be based on clinical grounds. Patient was entered into a reminder system with a target due date for the next mammogram. Impression dictated by: Mary Colon M.D.05/10/2023 10:10 AM Dictation Location: [facility] Transcribed By: SEJAL 05/10/23 1010 Dictated By: Mary Colon MD 05/10/23 1007 Signed By: 05/10/23 1010 Normal [facility] US venous duplex LE [facility] [place] [address] Ultrasound Report Signed Patient: Geeta Shelton MR#: [id number] : 1970 Acct:[id number] Age/Sex: 52 / F ADM Date: 02/14/23 Loc: Room: Type: [facility] Attending Dr: Sindy Davila FACILITY SERVICE ASSOCIATE-C Ordering Provider: Sindy Davila APRN Date of Service: 02/14/23 US/US venous duplex LE BI: LEG SWELLING Copies to: Sindy Davila APRN BILATERAL LOWER EXTREMITY VENOUS DUPLEX INDICATION: Symptomatic varicose veins PROCEDURE: Color-flow duplex scanning is used to interrogate the deep venous system of the right and left lower extremities. The common femoral vein, femoral vein and popliteal vein show good compressibility with normal proximal and distal augmentation. The calf veins are compressible. US/US venous duplex LE BI IMPRESSION: NO EVIDENCE FOR DEEP VEIN THROMBOSIS OR PROXIMAL SUPERFICIAL THROMBOPHLEBITIS IN THE RIGHT OR LEFT LOWER EXTREMITY. Severe reflux of greater than 5 seconds was identified in the greater saphenous vein. The lesser saphenous vein in the right lower extremity continuous flow which is considered severe reflux. Right lower extremity greater saphenous vein is dilated severely at 0.64 cm and is patent throughout its length. The right lower extremity greater saphenous vein is massively dilated 0.5 cm. Impression dictated by: Tyler Jean MD02/14/2023 4:29 PM Dictation Location: [place] [address] Tech: Fouzia Romo Transcribed By: SEJAL 02/14/231628 Dictated By: Tyler Jean MD 02/14/231624 Signed By: 02/14/23 162 Normal [facility] XR chest 2V*on 01-26-2023 XR chest 2V* [facility] [place] [address] [place] [address] XRay Report Signed Patient: Geeta Shelton MR#: [id number] : 1970 Acct:[id number] Age/Sex: 52 / F ADM Date: 01/26/23 Loc: XD Room: Type: [facility] Attending Dr: Elizabeth Alvarado APRN FACILITY SERVICE ASSOCIATE-C Copies to: Elizabeth Alvarado APRN, CNP Ordering Provider: Elizabeth Alvarado APRN, CNP Date of Service: 01/26/23 XR/XR chest 2V*: Moderate persistent asthma PA AND LATERAL CHEST: CLINICAL HISTORY: Cough and shortness of breath. Exacerbation of asthma. COMPARISON: 05/23/2017 There is no focal parenchymal consolidation, effusion or pneumothorax. The cardiac, hilar and mediastinal silhouettes are within normal limits. There is no vascular congestion. The visualized bony thorax is intact. There is endplate spurring at the spine. XR/XR chest 2V* IMPRESSION: NO ACUTE CARDIOPULMONARY ABNORMALITY. Impression dictated by: Mary Colon M.D.01/26/2023 11:47 AM Dictation Location: [place] [id number] Transcribed By: SEJAL 01/26/23 1147 Dictated By: Mary Colon MD 01/26/23 1145 Signed By: 01/26/23 114 Normal [facility] Established Visit (Orthopaed ic Surgery)on 12-29-2022 Established Visit (Orthopaedic Surgery) Chief Complaint R tTK-Revision DOS: 07/01/22 History of Present Illness History of present illness 52-year-old female presented clinic today for follow-up evaluation status post right total knee revision. She is proximately 6 months postop at this time doing much better. She states that occasionally her left knee gets swollen but this does not last very long. She notices overall improvement with function and pain. Very pleased with the outcome thus far. Physical exam General: No acute distress and breathing comfortably. Patient is pleasant and cooperative with the examination. Extremity Right knee is neurovascular intact. Good range of motion 0 to 115 degrees. 2+ pulses bilateral lower extremity. Cap refill lowness distally. No edema ecchymosis erythema seen. No instability on exam. Incisions well-healed without abnormality or infection. Compartments soft. No signs of DVT. Diagnostics [ none] Procedure [ none] Assessment Status post right total knee revision Treatment plan 1. At this time she will continue weightbearing activity as tolerated. 2. She was encouraged to continue with her home exercise program. We will also go ahead and prescribe pair of bilateral knee-high compression socks for her mild swelling left lower extremity and her varicose veins. 3. She will follow with us approximately 6 months with new x-rays right knee at that time for 1 year check. 4. All of the patient's questions were answered. This note was prepared using voice recognition software. The details of this note are correct and have been reviewed, and corrected to the best of my ability. Some grammatical areas may persist related to the [employer] software Merrill Alejandro PA-C . Active Problems Problems Acute pain of both knees (338.19,719.46) (M25.561,M25.562) Status post total knee replacement (V43.65) (Z96.659) Allergies Medication Penicillins Recorded By: Tarsha Murray; 05/18/2022 8:47:33 AM Current Meds Medication NameInstruction Cyclobenzaprine HCl - 10 MG Oral TabletTAKE 1 TABLET Bedtime oxyCODONE HCl - 5 MG Oral TabletTAKE 1 TABLET EVERY 6 HOURS NEEDED FOR BREAKTHROUGH PAIN. Xarelto 10 MG Oral TabletTake 1 tablet daily Signatures Electronically signed by : Merrill Alejandro PA-C; Dec 29 2022 1:38PM EST (Author) Normal [facility] Established Visit (Orthopaed ic Surgery)on 09-22-2022 Established Visit (Orthopaedic Surgery) Diagnoses/Problems Assessed Status post total knee replacement (V43.65) (Z96.659) Orders Status post total knee replacement Xray Knee 3 View; Status:Complete; Done: 22Sep2022 01:48PM Laterality : Right Radiologist to Determine Optimal Study : Y What are the patient's signs and symptoms? : pain Chief Complaint R tTK-Revision DOS: 07/01/22 xrays today History of Present Illness History of present illness 52-year-old female nearly 3 months out from her revision right total knee replacement is doing very well with her left knee that is actually giving her more trouble than anything else the right knee is coming along well she has a cane with her today she states she does not use it all the time no fevers or chills no numbness or tingling no locking or giving way. Physical exam General: No acute distress and breathing comfortably. Patient is pleasant and cooperative with the examination. Extremity Right knee has a well-healed midline incision range of motion 0-1 10 no instability brisk cap refill compartments soft calf is nontender Diagnostics See dictated x-ray report Procedure [ none] Assessment Healing revision total knee and right Treatment plan 1. Continue working on range of motion strengthening continue with her exercise program follow-up with me in 3 months at that time for left knees continue to give her trouble we will repeat x-rays on the left side. She does have a total knee on the left side does not appear that they resurfaced the patella. 2. [ ] 3. [ ] 4. All of the patient's questions were answered. This note was prepared using voice recognition software. The details of this note are correct and have been reviewed, and corrected to the best of my ability. Some grammatical areas may persist related to the [employer] software Acosta Schafer MD Senior Attending Physician [facility] [place] . Active Problems Problems Acute pain of both knees (338.19,719.46) (M25.561,M25.562) Status post total knee replacement (V43.65) (Z96.659) Allergies Medication Penicillins Recorded By: Tarsha Murray; 05/18/2022 8:47:33 AM Current Meds Medication NameInstruction Cyclobenzaprine HCl - 10 MG Oral TabletTAKE 1 TABLET Bedtime oxyCODONE HCl - 5 MG Oral TabletTAKE 1 TABLET EVERY 6 HOURS NEEDED FOR BREAKTHROUGH PAIN. Xarelto 10 MG Oral TabletTake 1 tablet daily Results/Data Xray Knee 3 [id number] 01:48PMAcosta Schafer Test NameResultFlagReference Xray Knee 3 View(Report) FINAL REPORT Interpreted by: ACOSTA SCHAFER BURTON, MD 09/22/22 14:13 Patient Name: GEETA SHELTON STUDY: KNEE; 3 VIEWS; Right; 09/22/2022 1:48 pm INDICATION: pain Z96.659: Status post total knee replacement. ACCESSION NUMBER(S): [id number] ORDERING CLINICIAN: ACOSTA SCHAFER FINDINGS: Right knee three views. Status post revision total knee replacement components in good position no signs of fracture dislocation or other bony abnormalities Electronically signed by: ACOSTA SCHAFER 09/22/22 14:13 Signatures Electronically signed by : Acosta Schafer MD; Sep 24 2022 5:54AM EST (Author) Normal [facility] KNEE 3 VIEWSon 09-22-2022 KNEE 3 VIEWS Patient Name: GEETA SHELTON STUDY: KNEE; 3 VIEWS; Right; 09/22/2022 1:48 pm INDICATION: pain Z96.659: Status post total knee replacement. ACCESSION NUMBER(S): [id number] ORDERING CLINICIAN: ACOSTA SCHAFER FINDINGS: Right knee three views. Status post revision total knee replacement components in good position no signs of fracture dislocation or other bony abnormalities Electronically signed by: ACOSTA SCHAFER MD [facility] XR Knee 3 Views Normal [facility] Work Phone: Alanine aminotransferase [En zymatic activity/volume] in Serum or PlasmaOrdered By: Zoey Ramirez on 08-17-2022 ALT [Catalytic activity/Vol] 45 U/L 7-52 [facility] Albumin [Mass/volume] in Ser um or PlasmaOrdered By: Zoey Ramirez on 08-17-2022 Albumin [Mass/Vol] 3.7 g/dL 2.9-4.4 [facility] Albumin [Mass/volume] in Ser um or Plasma by Bromocresol green (BCG) dye binding methoOrdered By: Zoey Ramirez on 08-17-2022 Albumin BCG dye [Mass/Vol] 4.1 g/dL 3.5-5.7 [facility] Albumin/Protein.total in 24 hour Urine by ElectrophoresisOrdered By: Zoey Ramirez on 08-17-2022 Albumin Elph (24H U) [Mass fraction] 59.9 % . [facility] Alkaline phosphatase [Enzyma tic activity/volume] in Serum or PlasmaOrdered By: Zoey Ramirez on 08-17-2022 ALP [Catalytic activity/Vol] 90 U/L 34-104 [facility] Aspartate aminotransferase [ Enzymatic activity/volume] in Serum or PlasmaOrdered By: Zoey Ramirez on 08-17-2022 AST [Catalytic activity/Vol] 40 U/L 13-39 [facility] Basophils Auto (Bld) [#/Vol] Ordered By: Zoey Ramirez on 08-17-2022 Basophils (Bld) [#/Vol] 0.1 10*3/uL 0.0-0.2 [facility] Basophils/100 WBC Auto (Bld) Ordered By: Zoey Ramierz on 08-17-2022 Basophils/100 WBC (Bld) 0.9 % . [facility] Bilirubin.total [Mass/volume ] in Serum or PlasmaOrdered By: Zoey Ramirez on 08-17-2022 Bilirubin [Mass/Vol] 0.4 mg/dL 0.3-1.0 [facility] Calcium [Mass/volume] in Ser um or PlasmaOrdered By: Zoey Ramirez on 08-17-2022 Calcium [Mass/Vol] 9.1 mg/dL 8.6-10.3 [facility] Carbon dioxide, total [Moles /volume] in Serum or PlasmaOrdered By: Zoey Ramirez on 08-17-2022 CO2 [Moles/Vol] 27.9 mmol/L 21.0-31.0 [facility] Chloride [Moles/volume] in S hugo or PlasmaOrdered By: Zoey Ramirez on 08-17-2022 Chloride [Moles/Vol] 100 mmol/L 98-107 [facility] Creatinine [Mass/volume] in Serum or PlasmaOrdered By: Zoey Ramirez on 08-17-2022 Creatinine [Mass/Vol] 0.71 mg/dL 0.60-1.20 [facility] Eosinophils Auto (Bld) [#/Vo l]Ordered By: Zoey Ramirez on 08-17-2022 Eosinophils (Bld) [#/Vol] 0.3 10*3/uL 0.0-0.45 [facility] Eosinophils/100 WBC Auto (Bl d)Ordered By: Zoey Ramirez on 08-17-2022 Eosinophils/100 WBC (Bld) 3.1 % . [facility] Erythrocyte distribution wid th Auto (RBC) [Ratio]Ordered By: Zoey Ramirez on 08-17-2022 Erythrocyte distribution width (RBC) [Ratio] 16.5 % 11.9-15.3 [facility] Ferritin [Mass/volume] in Se rum or PlasmaOrdered By: Zoey Ramirez on 08-17-2022 Ferritin [Mass/Vol] 85.3 ng/mL 11.0-306.8 [facility] Folate [Mass/volume] in Seru m or PlasmaOrdered By: Zeoy Ramirez on 08-17-2022 Folate [Mass/Vol] 15.1 ng/mL >5.9 [facility] Comment on above: Folate reference ran ge: >5.9 ng/mlThe WHO technical consultation on folate and vitamin [id number] has determined that folate concentrations lessthan 4 ng/ml are considered deficient. Gamma globulin/Protein.total in 24 hour Urine by ElectrophoresisOrdered By: Zoey Ramirez on 08-17-2022 Gamma globulin Elph (24H U) [Mass fraction] 15.3 % . [facility] Globulin Calc (S) [Mass/Vol] Ordered By: Zoey Ramirez on 08-17-2022 Globulin (S) [Mass/Vol] 4.0 g/dL [facility] Glucose [Mass/volume] in Ser um or PlasmaOrdered By: Zoey Ramirez on 08-17-2022 Glucose [Mass/Vol] 142 mg/dL 70-100 [facility] Comment on above: ADA recommended refe rence rangeRandom Glucose Reference Range is dependent on time and content of last meal. Glucose of more than 200 mg/dL in a nonstressed, ambulatory subject supports the diagnosis of Diabetes Mellitus. Hematocrit Auto (Bld) [Volum e fraction]Ordered By: Zoey Ramirez on 08-17-2022 Hematocrit (Bld) [Volume fraction] 41.3 % 34.0-46.4 [facility] Hemoglobin [Mass/volume] in BloodOrdered By: Zoey Ramirez on 08-17-2022 Hemoglobin (Bld) [Mass/Vol] 13.2 g/dL 11.8-15.4 [facility] IgA [Mass/volume] in Serum o r PlasmaOrdered By: Zoey Ramirez on 08-17-2022 IgA [Mass/Vol] 498 mg/dL 87-352 [facility] IgG [Mass/volume] in Serum o r PlasmaOrdered By: Zoey Ramirez on 08-17-2022 IgG [Mass/Vol] 1834 mg/dL 586-1602 [facility] IgM [Mass/volume] in Serum o r PlasmaOrdered By: Zoey Ramirez on 08-17-2022 IgM [Mass/Vol] 124 mg/dL 26-217 [facility] Comment on above: Performed at: [facility] [address] [id number] Director: Jeyson Duncan PhD, Phone: [phone] Immunofixation for UrineOrde red By: Zoey Ramirez on 08-17-2022 Interpretation Immunofixation (U) [Interp] See comment . [facility] Comment on above: No monoclonality det ected.Performed at: [facility] [address] [id number] Director: Jeyson Duncan PhD, Phone: [phone] Immunoglobulin light chains. kappa.free [Mass/volume] in SerumOrdered By: Zoey Ramirez on 08-17-2022 Immunoglobulin light chains.kappa.free (S) [Mass/Vol] 47.1 mg/L 3.3-19.4 [facility] Immunoglobulin light chains. kappa.free/Immunoglobulin light chains.lambda.free [MassOrdered By: Zoey Ramirez on 08-17-2022 Immunoglobulin light chains.kappa.free/Immuno globulin light chains.lambda.free (S) [Mass ratio] 1.65 0.26-1.65 [facility] Comment on above: Performed at: [facility] [place], [place] [id number] Director: Jeyson Duncan PhD, Phone: [phone] Immunoglobulin light chains. lambda.free [Mass/volume] in Serum or PlasmaOrdered By: Zoey Ramirez on 08-17-2022 Immunoglobulin light chains.lambda.free [Mass/Vol] 28.6 mg/L 5.7-26.3 [facility] Iron [Mass/volume] in Serum or PlasmaOrdered By: Zoey Ramirez on 08-17-2022 Iron [Mass/Vol] 41 ug/dL 50-212 [facility] Iron binding capacity [Mass/ volume] in Serum or PlasmaOrdered By: Zoey Ramirez on 08-17-2022 Iron binding capacity [Mass/Vol] 344 ug/dL 255-450 [facility] Iron saturation [Mass Fracti on] in Serum or PlasmaOrdered By: Zoey Ramirez on 08-17-2022 Iron saturation [Mass fraction] 11.9 % 20-50 [facility] Leukocytes [#/volume] correc silverio for nucleated erythrocytes in Blood by Automated counOrdered By: Zoey Ramirez on 08-17-2022 WBC corrected for nucl RBC Auto (Bld) [#/Vol] 9.9 10*3/uL 3.8-11.6 [facility] Lymphocytes Auto (Bld) [#/Vo l]Ordered By: Zoey Ramirez on 08-17-2022 Lymphocytes (Bld) [#/Vol] 2.8 10*3/uL 1.00-4.8 [facility] Lymphocytes/100 WBC Auto (Bl d)Ordered By: Zoey Ramirez on 08-17-2022 Lymphocytes/100 WBC (Bld) 28.5 % . [facility] MCH Auto (RBC) [Entitic mass ]Ordered By: Zoey Ramirez on 08-17-2022 MCH (RBC) [Entitic mass] 24.9 pg 24.7-34.3 [facility] MCHC Auto (RBC) [Mass/Vol]Or dered By: Zoey Ramirez on 08-17-2022 MCHC (RBC) [Mass/Vol] 32.0 g/dL 32.0-35.0 [facility] MCV Auto (RBC) [Entitic vol] Ordered By: Zoey Ramirez on 08-17-2022 MCV (RBC) [Entitic vol] 77.8 fL 80-100 [facility] Monocytes Auto (Bld) [#/Vol] Ordered By: Zoey Ramirez on 08-17-2022 Monocytes (Bld) [#/Vol] 0.6 10*3/uL 0.0-0.8 [facility] Monocytes/100 WBC Auto (Bld) Ordered By: Zoey Ramirez on 08-17-2022 Monocytes/100 WBC (Bld) 5.9 % . [facility] Neutrophils Auto (Bld) [#/Vo l]Ordered By: Zoey Ramirez on 08-17-2022 Neutrophils (Bld) [#/Vol] 6.1 10*3/uL 1.8-7.7 [facility] Neutrophils/100 WBC Auto (Bl d)Ordered By: Zoey Ramirez on 08-17-2022 Neutrophils/100 WBC (Bld) 61.6 % . [facility] No Panel InformationOrdered By: Zoey Ramirez on 08-17-2022 Estimated GFR (CKD-EPI) > 60.0 mL/Min [facility] Creatinine Clearance (Chem 122.85 [facility] Protein Electrophoresis M-Antwan Not observed g/dL Not Observed [facility] Protein Electrophoresis Note See comment . [facility] Comment on above: Protein electrophore sis scan will follow via computer,mail, or short filler bunch machine operator delivery.Performed at: [facility] [id number] Director: Jeyson Duncan PhD, Phone: [phone] Serum Immunofixation Comment: . [facility] Comment on above: Presence of monoclon al protein is unclear at this time. Suggestrepeat in 3 to 6 months if clinically indicated. Urine Random Prot Electrophor Note See comment . [facility] Comment on above: Protein electrophore sis scan will follow via computer,mail, or short filler bunch machine operator delivery.Performed at: [facility] [id number] Director: Jeyson Duncan PhD, Phone: [phone] Nucleated erythrocytes [Pres ence] in Blood by Automated countOrdered By: Zoey Ramirez on 08-17-2022 Nucleated RBC Auto Ql (Bld) 0.1 /100{WBC} 0-0.5 [facility] Platelet mean volume Auto (B ld) [Entitic vol]Ordered By: Zoey Ramirez on 08-17-2022 Platelet mean volume (Bld) [Entitic vol] 8.5 fL 6.3-10.7 [facility] Platelets Auto (Bld) [#/Vol] Ordered By: Zoey Ramirez on 08-17-2022 Platelets (Bld) [#/Vol] 345 10*3/uL 150-450 [facility] Potassium [Moles/volume] in Serum or PlasmaOrdered By: Zoey Ramirez on 08-17-2022 Potassium [Moles/Vol] 4.7 mmol/L 3.5-5.1 [facility] Protein [Mass/volume] in Ser um or PlasmaOrdered By: Zoey Ramirez on 08-17-2022 Protein [Mass/Vol] 8.1 g/dL 6.4-8.9 [facility] Protein [Mass/Vol] 8.0 g/dL 6.0-8.5 [facility] Protein [Mass/volume] in Uri neOrdered By: Zoey Ramirez on 08-17-2022 Protein (U) [Mass/Vol] 75.0 mg/dL Not Estab. [facility] Protein.monoclonal/Protein.t otal in 24 hour Urine by ElectrophoresisOrdered By: Zoey Ramirez on 08-17-2022 Protein.monoclonal Elph (24H U) [Mass fraction] Not observed % Not Observed [facility] RBC Auto (Bld) [#/Vol]Ordere d By: Zoey Ramirez on 08-17-2022 RBC (Bld) [#/Vol] 5.31 10*6/uL 3.60-5.00 [facility] Serum globulin measurement ( mass/volume)Ordered By: Zoey Ramirez on 08-17-2022 Globulin (S) [Mass/Vol] 4.3 g/dL 2.2-3.9 [facility] Serum or plasma albumin/glob ulin mass ratioOrdered By: Zoey Ramirez on 08-17-2022 Albumin/Globulin [Mass ratio] 1.0 {ratio} [facility] Albumin/Globulin [Mass ratio] 0.9 {ratio} 0.7-1.7 [facility] Serum or plasma alpha 1 glob ulin measurement by electrophoresis (mass/volume)Ordered By: Zoey Ramirez on 08-17-2022 Alpha 1 globulin Elph [Mass/Vol] 0.3 g/dL 0.0-0.4 [facility] Serum or plasma alpha 2 glob ulin measurement by electrophoresis (mass/volume)Ordered By: Zoey Ramirez on 08-17-2022 Alpha 2 globulin Elph [Mass/Vol] 0.8 g/dL 0.4-1.0 [facility] Serum or plasma anion gap de terminationOrdered By: Zoey Ramirez on 08-17-2022 Anion gap [Moles/Vol] 12.8 mmol/L 6.0-15.0 [facility] Serum or plasma beta globuli n measurement by electrophoresis (mass/volume)Ordered By: Zoey Ramirez on 08-17-2022 Beta globulin Elph [Mass/Vol] 1.3 g/dL 0.7-1.3 [facility] Serum or plasma gamma globul in measurement by electrophoresis (mass/volume)Ordered By: Zoey Ramirez on 08-17-2022 Gamma globulin Elph [Mass/Vol] 1.9 g/dL 0.4-1.8 [facility] Sodium [Moles/volume] in Ser um or PlasmaOrdered By: Zoey Ramirez on 08-17-2022 Sodium [Moles/Vol] 136 mmol/L 136-145 [facility] Transferrin [Mass/volume] in Serum or PlasmaOrdered By: Zoey Ramirez on 08-17-2022 Transferrin [Mass/Vol] 246 mg/dL 203-362 [facility] Urea nitrogen [Mass/volume] in Serum or PlasmaOrdered By: Zoey Ramirez on 08-17-2022 Urea nitrogen [Mass/Vol] 23 mg/dL 7-25 [facility] Urine alpha 1 globulin/total protein by electrophoresisOrdered By: Zoey Ramirez on 08-17-2022 Alpha 1 globulin Elph (U) [Mass fraction] 4.5 % . [facility] Urine alpha 2 globulin/total protein ratio by electrophoresisOrdered By: Zoey Ramirez on 08-17-2022 Alpha 2 globulin Elph (U) [Mass fraction] 7.7 % . [facility] Urine beta globulin measurem ent by electrophoresis (mass/volume)Ordered By: Zoey Ramirez on 08-17-2022 Beta globulin Elph (U) [Mass/Vol] 12.6 % . [facility] Vitamin B12 ser/plasOrdered By: Zoey Ramirez on 08-17-2022 Cobalamin (Vitamin B12) [Mass/Vol] 387 pg/mL 180-914 [facility] WBC Auto (Bld) [#/Vol]Ordere d By: Zoey Ramirez on 08-17-2022 WBC (Bld) [#/Vol] 9.9 10*3/uL 3.8-11.6 [facility] Established Visit (Orthopaed ic Surgery)on 08-11-2022 Established Visit (Orthopaedic Surgery) Chief Complaint Rt TK-Revision DOS: 07/01/22, 6 weeks out History of Present Illness History of present illness 52-year-old female presented clinic today for 6-week postop follow-up visit status post right total knee revision conversion from a partial knee. She continues to do well. Continues to improve in regards to range of motion as well as function. She is ambulating with the assistance of a cane. Continue to do her outpatient physical therapy at [facility]. She has a few visits left. She has less pain. No longer taking pain medication. Physical exam General: No acute distress and breathing comfortably. Patient is pleasant and cooperative with the examination. Extremity Right knee is neurovascular intact. Range of motion 5 to 105 degrees. Mild edema. Incisions well-healed at this time without complication or infection. No abnormality. No calf swelling or tenderness. 2+ pulses bilateral extremity. Capillary fill lowness distally. Compartments soft. Mild tightness over the IT band Diagnostics [ none] Procedure [ none] Assessment Status post right total knee conversion from a partial Treatment plan 1. She was encouraged to continue with weightbearing activity as tolerated 2. Wound instructions were discussed. She will continue with outpatient physical therapy. 3. Follow-up with us in 6 weeks with new x-rays right knee. 4. All of the patient's questions were answered. This note was prepared using voice recognition software. The details of this note are correct and have been reviewed, and corrected to the best of my ability. Some grammatical areas may persist related to the [employer] software Merrill Alejandro PA-C . Active Problems Problems Acute pain of both knees (338.19,719.46) (M25.561,M25.562) Status post total knee replacement (V43.65) (Z96.659) Allergies Medication Penicillins Recorded By: Tarsha Murray; 05/18/2022 8:47:33 AM Current Meds Medication NameInstruction Cyclobenzaprine HCl - 10 MG Oral TabletTAKE 1 TABLET Bedtime oxyCODONE HCl - 5 MG Oral TabletTAKE 1 TABLET EVERY 6 HOURS NEEDED FOR BREAKTHROUGH PAIN. Xarelto 10 MG Oral TabletTake 1 tablet daily Signatures Electronically signed by : Merrill Alejandro PA-C; Aug 11 2022 10:34AM EST (Author) Normal [facility] Albumin [Mass/volume] in Ser um or PlasmaOrdered By: Lorrie Baig on 07-23-2022 Albumin [Mass/Vol] 3.3 g/dL 2.9-4.4 [facility] Creatine kinase [Enzymatic a ctivity/volume] in Serum or PlasmaOrdered By: Lorrie Baig on 07-23-2022 CK [Catalytic activity/Vol] 51 U/L [facility] Erythrocyte sedimentation ra te by Photometric methodOrdered By: Lorrie Baig on 07-23-2022 ESR Photometric method (Bld) [Velocity] 65 mm/hr 0-29 [facility] Folate [Mass/volume] in Seru m or PlasmaOrdered By: Lorrie Baig on 07-23-2022 Folate [Mass/Vol] 12.8 ng/mL >5.9 [facility] Comment on above: Folate reference ran ge: >5.9 ng/mlThe WHO technical consultation on folate and vitamin [id number] has determined that folate concentrations lessthan 4 ng/ml are considered deficient. Magnesium [Mass/volume] in S hugo or PlasmaOrdered By: Lorrie Baig on 07-23-2022 Magnesium [Mass/Vol] 1.8 mg/dL 1.9-2.7 [facility] No Panel InformationOrdered By: Lorrie Baig on 07-23-2022 Protein Electrophoresis Interpret See comment . [facility] Comment on above: Faint band in gamma region suspicious for monoclonalimmunoglobulin. This band may represent a benign spike asseen in older people or could be a paraprotein as seen inMultiple Myeloma, Waldenstrom's Macroglobulinemia orLymphoma. Depending on clinical circumstances, furtherdiagnostic studies may include serum immunofixation orserum free light chain quantitation.Performed at: [facility] [id number] Director: Jeyson Duncan PhD, Phone: [phone] Protein Electrophoresis M-Antwan Comment: g/dL Not Observed [facility] Comment on above: ASYMMETRICAL GAMMA Protein Electrophoresis Note See comment . [facility] Comment on above: Protein electrophore sis scan will follow via computer,mail, or short filler bunch machine operator delivery. Phosphate [Mass/volume] in S hugo or PlasmaOrdered By: Lorrie Baig on 07-23-2022 Phosphate [Mass/Vol] 4.5 mg/dL 3.7-7.2 [facility] Protein [Mass/volume] in Ser um or PlasmaOrdered By: Lorrie Baig on 07-23-2022 Protein [Mass/Vol] 7.2 g/dL 6.0-8.5 [facility] Serum globulin measurement ( mass/volume)Ordered By: Lorrie Baig on 07-23-2022 Globulin (S) [Mass/Vol] 3.9 g/dL 2.2-3.9 [facility] Serum or plasma albumin/glob ulin mass ratioOrdered By: Lorrie Baig on 07-23-2022 Albumin/Globulin [Mass ratio] 0.8 {ratio} 0.7-1.7 [facility] Serum or plasma alpha 1 glob ulin measurement by electrophoresis (mass/volume)Ordered By: Lorrie Baig on 07-23-2022 Alpha 1 globulin Elph [Mass/Vol] 0.3 g/dL 0.0-0.4 [facility] Serum or plasma alpha 2 glob ulin measurement by electrophoresis (mass/volume)Ordered By: Lorrie Baig on 07-23-2022 Alpha 2 globulin Elph [Mass/Vol] 0.7 g/dL 0.4-1.0 [facility] Serum or plasma beta globuli n measurement by electrophoresis (mass/volume)Ordered By: Lorrie Baig on 07-23-2022 Beta globulin Elph [Mass/Vol] 1.2 g/dL 0.7-1.3 [facility] Serum or plasma gamma globul in measurement by electrophoresis (mass/volume)Ordered By: Lorrie Baig on 07-23-2022 Gamma globulin Elph [Mass/Vol] 1.7 g/dL 0.4-1.8 [facility] Thyrotropin [Units/volume] i n Serum or PlasmaOrdered By: Lorrie Baig on 07-23-2022 TSH Qn 4.76 m[IU]/L 0.45-5.33 [facility] Vitamin B12 ser/plasOrdered By: Lorrie Baig on 07-23-2022 Cobalamin (Vitamin B12) [Mass/Vol] 358 pg/mL 180-914 [facility] KNEE 3 VIEWSon 07-14-2022 KNEE 3 VIEWS Patient Name: GEETA SHELTON STUDY: KNEE; 3 VIEWS; Right; 07/14/2022 8:47 am INDICATION: pain Z96.659: Status post total knee replacement. ACCESSION NUMBER(S): [id number] ORDERING CLINICIAN: ACOSTA SCHAFER FINDINGS: Right knee three views. Status post revision type total knee replacement components in good position no signs of fracture dislocation or other bony abnormality dee in the soft tissues anteriorly. Electronically signed by: ACOSTA SCHAFER MD [facility] [address] Post Op (Orthopaedic Surgery )on 07-14-2022 Post Op (Orthopaedic Surgery) Diagnoses/Problems Assessed Status post total knee replacement (V43.65) (Z96.659) Orders Status post total knee replacement Xray Knee 3 View; Status:Resulted - Requires Verification,Retrospectiv e Authorization; Done: 14Jul2022 08:47AM Laterality : Right Radiologist to Determine Optimal Study : Y What are the patient's signs and symptoms? : pain Chief Complaint POV Rt TK-Revision DOS: 07/01/22, 2 weeks out xrays today History of Present Illness History of present illness 52-year-old female presented clinic today for her first postop follow-up visit status post right knee conversion from a unit to a total performed 07/01/2022. Overall doing well. Ambulating with the assistance of a cane. She still using her oxycodone and cyclobenzaprine but she is using her muscle relaxant in the morning rather than at night. She still has some discomfort at night with spasms when she is trying to get comfortable for sleep. No numbness tingling no fevers chills reported. Swelling is improving. She is now done with home physical therapy and is transitioning to outpatient physical therapy next week she will most likely do this at [facility] [place]. Physical exam General: No acute distress and breathing comfortably. Patient is pleasant and cooperative with the examination. Extremity Right knee is neurovascular intact. Good range of motion 5 to 90 degrees. Incisions well-healed well approximated without abnormality. Wound is clean dry and intact. No erythema ecchymosis. Minimal calf swelling but no tenderness. No signs of DVT. 2+ pulses bilateral lower extremity. Capillary refill is within normal is distally. Compartments are soft. Mild tenderness palpation medial compartment. Diagnostics Please see dictated x-ray report Procedure Garland removed Steri-Strips placed without complication Assessment Status post right knee conversion from a partial knee to a total knee replacement Treatment plan 1. She was encouraged to continue weightbearing activity as tolerated. 2. Wound instructions were discussed today. Prescription for outpatient therapy was given. Prescription refill for oxycodone and cyclobenzaprine sent to the pharmacy today. 3. She will follow-up with us in 3 weeks for reevaluation without x-ray. 4. All of the patient's questions were answered. I have personally reviewed the OARRS report for this patient. This report is scanned into the electronic medical record. I have considered the risks of abuse, dependence, addiction and diversion. Pain can reach 8/10 at times. This note was prepared using voice recognition software. The details of this note are correct and have been reviewed, and corrected to the best of my ability. Some grammatical areas may persist related to the [employer] software Merrill Alejandro PA-C . Active Problems Problems Acute pain of both knees (338.19,719.46) (M25.561,M25.562) Status post total knee replacement (V43.65) (Z96.659) Allergies Medication Penicillins Recorded By: Tarsha Murray; 05/18/2022 8:47:33 AM Current Meds Medication NameInstruction Xarelto 10 MG Oral TabletTake 1 tablet daily Results/Data Xray Knee 3 [id number] 08:47Acosta Osborne Test NameResultFlagReference Xray Knee 3 View(Report) FINAL REPORT Interpreted by: ACOSTA SCHAFER BURTON, MD 07/14/22 08:49 Patient Name: GEETA SHELTON STUDY: KNEE; 3 VIEWS; Right; 07/14/2022 8:47 am INDICATION: pain Z96.659: Status post total knee replacement. ACCESSION NUMBER(S): [id number] ORDERING CLINICIAN: ACOSTA SCHAFER FINDINGS: Right knee three views. Status post revision type total knee replacement components in good position no signs of fracture dislocation or other bony abnormality dee in the soft tissues anteriorly. Electronically signed by: ACOSTA SCHAFER 07/14/22 08:49 Signatures Electronically signed by : Merrill Alejandro PA-C; Jul 14 2022 9:06AM EST (Author) Normal [facility] 07-14-2022 XR Knee 3 Views Normal -[facility] Work Phone: Basic Metabolic Panel Reflex Mgon 07-03-2022 Anion gap [Moles/Vol] 10 mmol/L Normal 9-15 [facility] Comment on above: Performed By: #### B MPX #### [facility] [address] [place] [address] Calcium [Mass/Vol] 9.2 mg/dL Normal 8.5-9.9 [facility] Comment on above: Performed By: #### B MPX #### [facility] [address] [place] [address] Chloride [Moles/Vol] 100 mmol/L Normal 95-107 [facility] Comment on above: Performed By: #### B MPX #### [facility] [address] [place] [address] CO2 [Moles/Vol] 27 mmol/L Normal 20-31 [facility] Comment on above: Performed By: #### B MPX #### [facility] [address] [place] [address] Creatinine [Mass/Vol] 0.51 mg/dL Normal 0.50-0.90 [facility] Comment on above: Performed By: #### B MPX #### [facility] [address] [place] [address] GFR >60.0 Normal >60 [facility] Comment on above: Result Comment: Myra atric calculator link https://www.kidney.org/professionals/kdoqi/gfr_calculatorped Effective Jan 25, 2022 These results are not intended for use in patients <18 years of age. eGFR results are calculated without a race factor using the 2020 CKD-EPI equation. Careful clinical correlation is recommended, particularly when comparing to results calculated using previous equations. The CKD-EPI equation is less accurate in patients with extremes of muscle mass, extra-renal metabolism of creatinine, excessive creatinine ingestion, or following therapy that affects renal tubular secretion. Performed By: #### B MPX #### [facility] [address] [place] [address] Glucose [Mass/Vol] 132 mg/dL Critically high 70-99 [facility] Comment on above: Performed By: #### B MPX #### [facility] [address] [place] [address] Magnesium [Moles/Vol] 4.6 mmol/L Normal 3.4-4.9 [facility] Comment on above: Performed By: #### B MPX #### [facility] [address] [place] [address] Sodium [Moles/Vol] 137 mmol/L Normal 135-144 [facility] Comment on above: Performed By: #### B MPX #### [facility] [address] [place] [address] Urea nitrogen [Mass/Vol] 12 mg/dL Normal 6-20 [facility] Comment on above: Performed By: #### B MPX #### [facility] [address] [place] [address] Basic Metabolic Panel w/ Ref hillary to MGon 07-03-2022 Anion gap [Moles/Vol] 10 mmol/L [facility] Calcium [Mass/Vol] 9.2 mg/dL 8.5 - 9.9 mg/dL [facility] Chloride [Moles/Vol] 100 mmol/L [facility] CO2 [Moles/Vol] 27 mmol/L [facility] Creatinine [Mass/Vol] 0.51 mg/dL 0.50 - 0.90 mg/dL [facility] GFR/1.73 sq M.predicted MDRD (S/P/Bld) [Vol rate/Area] 60 - PINF [facility] Comment on above: Pediatric calculator link https://www.kidney.org/professionals/kdoqi/gfr_calculatorped Effective Jan 25, 2022 These results are not intended for use in patients <18 years of age. eGFR results are calculated without a race factor using the 2020 CKD-EPI equation. Careful clinical correlation is recommended, particularly when comparing to results calculated using previous equations. The CKD-EPI equation is less accurate in patients with extremes of muscle mass, extra-renal metabolism of creatinine, excessive creatinine ingestion, or following therapy that affects renal tubular secretion. Glucose [Mass/Vol] 132 mg/dL High 70 - 99 mg/dL [facility] Interpretation and review of laboratory results Abnormal [facility] Potassium reflex Magnesium 4.6 [facility] Sodium [Moles/Vol] 137 mmol/L [facility] Urea nitrogen (BldV) [Mass/Vol] 12 mg/dL 6 - 20 mg/dL [facility] CBCon 07-03-2022 Hematocrit (Bld) [Volume fraction] 39.9 % 37.0 - 47.0 % [facility] Hemoglobin (Bld) [Mass/Vol] 12.9 g/dL 12.0 - 16.0 g/dL [facility] Interpretation and review of laboratory results Abnormal [facility] MCH (RBC) [Entitic mass] 25.7 pg Low 27. 0 - 31.3 pg [facility] MCHC (RBC) [Mass/Vol] 32.3 % Low 33.0 - 37.0 % [facility] MCV (RBC) [Entitic vol] 79.6 fL 79.4 - 94.8 fL [facility] Platelet distribution width (Bld) [Ratio] 16.5 % High 11.5 - 14.5 % [facility] Platelets (Bld) [#/Vol] 230 10*3/uL 130 - 400 K/uL [facility] RBC (Bld) [#/Vol] 5.02 10*6/uL [facility] WBC (Bld) [#/Vol] 9.2 10*3/uL 4.8 - 10.8 K/uL [facility] CBC With Platelet No Differe ntialon 07-03-2022 Erythrocyte distribution width (RBC) [Ratio] 16.5 % Critically high 11.5-14.5 [facility] Comment on above: Performed By: #### C BCND #### [facility] [address] [place] [address] Hematocrit (Bld) [Volume fraction] 39.9 % Normal 37.0-47.0 [facility] Comment on above: Performed By: #### C BCND #### [facility] [address] [place] [address] Hemoglobin (Bld) [Mass/Vol] 12.9 g/dL Normal 12.0-16.0 [facility] Comment on above: Performed By: #### C BCND #### [facility] [address] [place] [address] MCH (RBC) [Entitic mass] 25.7 pg Low 27.0-31.3 [facility] Comment on above: Performed By: #### C BCND #### [facility] [address] [place] [address] MCHC 32.3 % Low 33.0-37.0 [facility] Comment on above: Performed By: #### C BCND #### [facility] [address] [place] [address] MCV (RBC) [Entitic vol] 79.6 fL Normal 79.4-94.8 [facility] Comment on above: Performed By: #### C BCND #### [facility] [address] [place] [address] Platelets (Bld) [#/Vol] 230 10*3/uL Normal 130-400 [facility] Comment on above: Performed By: #### C BCND #### [facility] [address] [place] [address] RBC (Bld) [#/Vol] 5.02 10*6/uL Normal 4.20-5.40 [facility] Comment on above: Performed By: #### C BCND #### [facility] [address] [place] [address] WBC (Bld) [#/Vol] 9.2 10*3/uL Normal 4.8-10.8 [facility] Comment on above: Performed By: #### C BCND #### [facility] [address] [place] [address] Basic Metabolic Panel Reflex Mgon 07-02-2022 Anion gap [Moles/Vol] 8 mmol/L Low 9-15 [facility] Comment on above: Order Comment: Daja ction has been rescheduled by HERAM at 07/02/2022 05:49 Reason: Come back last per rn fouzia Performed By: #### B MPX #### [facility] [address] [place] [address] Calcium [Mass/Vol] 8.9 mg/dL Normal 8.5-9.9 [facility] Comment on above: Order Comment: Daja ction has been rescheduled by HERMICHELLE at 07/02/2022 05:49 Reason: Come back last per kpi reinoso Performed By: #### B MPX #### [facility] [address] [place] [address] Chloride [Moles/Vol] 100 mmol/L Normal 95-107 [facility] Comment on above: Order Comment: Daja ction has been rescheduled by HERAM at 07/02/2022 05:49 Reason: Come back last per rn fouzia Performed By: #### B MPX #### [facility] [address] [place] [address] CO2 [Moles/Vol] 27 mmol/L Normal 20-31 [facility] Comment on above: Order Comment: Daja ction has been rescheduled by HERMICHELLE at 07/02/2022 05:49 Reason: Come back last per kip reinoso Performed By: #### B MPX #### [facility] [address] [place] [address] Creatinine [Mass/Vol] 0.61 mg/dL Normal 0.50-0.90 [facility] Comment on above: Order Comment: Daja zamarripa has been rescheduled by HERAM at 07/02/2022 05:49 Reason: Come back last per rn fouzia Performed By: #### B MPX #### [facility] [address] [place] [address] GFR >60.0 Normal >60 [facility] Comment on above: Order Comment: Daja zamarripa has been rescheduled by HERAM at 07/02/2022 05:49 Reason: Come back last per rn fouzia Result Comment: Myra atric calculator link https://www.kidney.org/professionals/kdoqi/gfr_calculatorped Effective Jan 25, 2022 These results are not intended for use in patients <18 years of age. eGFR results are calculated without a race factor using the 2020 CKD-EPI equation. Careful clinical correlation is recommended, particularly when comparing to results calculated using previous equations. The CKD-EPI equation is less accurate in patients with extremes of muscle mass, extra-renal metabolism of creatinine, excessive creatinine ingestion, or following therapy that affects renal tubular secretion. Performed By: #### B MPX #### [facility] [address] [place] [address] Glucose [Mass/Vol] 144 mg/dL Critically high 70-99 [facility] Comment on above: Order Comment: Daja zamarripa has been rescheduled by HERAM at 07/02/2022 05:49 Reason: Come back last per rn fouzia Performed By: #### B MPX #### [facility] [address] [place] [address] Magnesium [Moles/Vol] 4.8 mmol/L Normal 3.4-4.9 [facility] Comment on above: Order Comment: Daja zamarripa has been rescheduled by HERAM at 07/02/2022 05:49 Reason: Come back last per rn fouzia Performed By: #### B MPX #### [facility] [address] [place] [address] Sodium [Moles/Vol] 135 mmol/L Normal 135-144 [facility] Comment on above: Order Comment: Daja zamarripa has been rescheduled by HERAM at 07/02/2022 05:49 Reason: Come back last per kip reinoso Performed By: #### B MPX #### [facility] [address] [place] [address] Urea nitrogen [Mass/Vol] 21 mg/dL Critically high 6-20 [facility] Comment on above: Order Comment: Daja zamarripa has been rescheduled by HERAM at 07/02/2022 05:49 Reason: Come back last per kip reinoso Performed By: #### B MPX #### [facility] [address] [place] [address] Basic Metabolic Panel w/ Ref hillary to MGon 07-02-2022 Anion gap [Moles/Vol] 8 mmol/L Low [facility] [employer] Calcium [Mass/Vol] 8.9 mg/dL 8.5 - 9.9 mg/dL [facility] [employer] Chloride [Moles/Vol] 100 mmol/L [facility] [employer] CO2 [Moles/Vol] 27 mmol/L [facility] [employer] Creatinine [Mass/Vol] 0.61 mg/dL 0.50 - 0.90 mg/dL [facility] GFR/1.73 sq M.predicted MDRD (S/P/Bld) [Vol rate/Area] 60 - PINF [facility] Comment on above: Pediatric calculator link https://www.kidney.org/professionals/kdoqi/gfr_calculatorped Effective Jan 25, 2022 These results are not intended for use in patients <18 years of age. eGFR results are calculated without a race factor using the 2020 CKD-EPI equation. Careful clinical correlation is recommended, particularly when comparing to results calculated using previous equations. The CKD-EPI equation is less accurate in patients with extremes of muscle mass, extra-renal metabolism of creatinine, excessive creatinine ingestion, or following therapy that affects renal tubular secretion. Glucose [Mass/Vol] 144 mg/dL High 70 - 99 mg/dL [facility] Interpretation and review of laboratory results Abnormal [facility] Potassium reflex Magnesium 4.8 [facility] Sodium [Moles/Vol] 135 mmol/L [facility] Urea nitrogen (BldV) [Mass/Vol] 21 mg/dL High 6 - 20 mg/dL [facility] Collection has been rescheduled by VALDO at 07/02/2022 05:49 Reason: Come back last per rn [facility] CBCon 07-02-2022 Hematocrit (Bld) [Volume fraction] 40.3 % 37.0 - 47.0 % [facility] Hemoglobin (Bld) [Mass/Vol] 12.9 g/dL 12.0 - 16.0 g/dL [facility] Interpretation and review of laboratory results Abnormal [facility] MCH (RBC) [Entitic mass] 25.5 pg Low 27. 0 - 31.3 pg [facility] MCHC (RBC) [Mass/Vol] 32.1 % Low 33.0 - 37.0 % [facility] MCV (RBC) [Entitic vol] 79.6 fL 79.4 - 94.8 fL [facility] Platelet distribution width (Bld) [Ratio] 16.3 % High 11.5 - 14.5 % [facility] Platelets (Bld) [#/Vol] 230 10*3/uL 130 - 400 K/uL [facility] RBC (Bld) [#/Vol] 5.06 10*6/uL [facility] WBC (Bld) [#/Vol] 9.1 10*3/uL 4.8 - 10.8 K/uL [facility] Collection has been rescheduled by VALDO at 07/02/2022 05:49 Reason: Come back last per rn [facility] CBC With Platelet No Differe ntialon 07-02-2022 Erythrocyte distribution width (RBC) [Ratio] 16.3 % Critically high 11.5-14.5 [facility] Comment on above: Order Comment: Colle ction has been rescheduled by VALDO at 07/02/2022 05:49 Reason: Come back last per rn fouzia Performed By: #### C BCND #### [facility] [address] [place] [address] Hematocrit (Bld) [Volume fraction] 40.3 % Normal 37.0-47.0 [facility] Comment on above: Order Comment: Daja zamarripa has been rescheduled by HERMICHELLE at 07/02/2022 05:49 Reason: Come back last per rn fouzia Performed By: #### C BCND #### [facility] [address] [place] [address] Hemoglobin (Bld) [Mass/Vol] 12.9 g/dL Normal 12.0-16.0 [facility] Comment on above: Order Comment: Daja zamarripa has been rescheduled by HERMICHELLE at 07/02/2022 05:49 Reason: Come back last per rn fouzia Performed By: #### C BCND #### [facility] [address] [place] [address] MCH (RBC) [Entitic mass] 25.5 pg Low 27.0-31.3 [facility] Comment on above: Order Comment: Daja zamarripa has been rescheduled by HERMICHELLE at 07/02/2022 05:49 Reason: Come back last per rn fouzia Performed By: #### C BCND #### [facility] [address] [place] [address] MCHC 32.1 % Low 33.0-37.0 [facility] Comment on above: Order Comment: Daja zamarripa has been rescheduled by HERMICHELLE at 07/02/2022 05:49 Reason: Come back last per rn fouzia Performed By: #### C BCND #### [facility] [address] [place] [address] MCV (RBC) [Entitic vol] 79.6 fL Normal 79.4-94.8 [facility] Comment on above: Order Comment: Daja zamarripa has been rescheduled by HERMICHELLE at 07/02/2022 05:49 Reason: Come back last per rn fouzia Performed By: #### C BCND #### [facility] [address] [place] [address] Platelets (Bld) [#/Vol] 230 10*3/uL Normal 130-400 [facility] Comment on above: Order Comment: Daja zamarripa has been rescheduled by HERAM at 07/02/2022 05:49 Reason: Come back last per rn fouzia Performed By: #### C BCND #### [facility] [address] [place] [address] RBC (Bld) [#/Vol] 5.06 10*6/uL Normal 4.20-5.40 [facility] Comment on above: Order Comment: Daja zamarripa has been rescheduled by HERAM at 07/02/2022 05:49 Reason: Come back last per rn fouzia Performed By: #### C BCND #### [facility] [address] [place] [address] WBC (Bld) [#/Vol] 9.1 10*3/uL Normal 4.8-10.8 [facility] Comment on above: Order Comment: Daja zamarripa has been rescheduled by HERAM at 07/02/2022 05:49 Reason: Come back last per rn fouzia Performed By: #### C BCND #### [facility] [address] [place] [address] US DUP UPPER EXTREMITY LEFT VENOUSon 07-02-2022 US DUP UPPER EXTREMITY LEFT VENOUS EXAMINATION: VENOUS ULTRASOUND OF THE LEFT UPPER EXTREMITY, 07/02/2022 8:01 am TECHNIQUE: Duplex ultrasound using B-mode/bliss scaled imaging and Doppler spectral analysis and color flow was obtained of the deep venous structures of the left upper extremity. COMPARISON: None. HISTORY: ORDERING SYSTEM PROVIDED HISTORY: LUE swelling pain following surgery TECHNOLOGIST PROVIDED HISTORY: Reason for exam:->LUE swelling pain following surgery What reading provider will be dictating this exam?->CRC FINDINGS: There is normal flow and compressibility of the visualized venous structures. There is no evidence of echogenic thrombus. The veins demonstrate good compressibility with normal color flow study and spectral analysis. IMPRESSION: No evidence of DVT. Interpreted by: Jean Sifuentes MD Signed by: Jean Sifuentes MD 07/02/22 Final result Normal [facility] No evidence of DVT. [facility] EXAMINATION: VENOUS ULTRASOUND OF THE LEFT UPPER EXTREMITY, 07/02/2022 8:01 am TECHNIQUE: Duplex ultrasound using B-mode/bliss scaled imaging and Doppler spectral analysis and color flow was obtained of the deep venous structures of the left upper extremity. COMPARISON: None. HISTORY: ORDERING SYSTEM PROVIDED HISTORY: LUE swelling pain following surgery TECHNOLOGIST PROVIDED HISTORY: Reason for exam:->LUE swelling pain following surgery What reading provider will be dictating this exam?->CRC FINDINGS: There is normal flow and compressibility of the visualized venous structures. There is no evidence of echogenic thrombus. The veins demonstrate good compressibility with normal color flow study and spectral analysis. [facility] RADIOLOG[facility] Jaen Sifuentes MD - 07/02/2022 EXAMINATION: VENOUS ULTRASOUND OF THE LEFT UPPER EXTREMITY, 07/02/2022 8:01 am TECHNIQUE: Duplex ultrasound using B-mode/bliss scaled imaging and Doppler spectral analysis and color flow was obtained of the deep venous structures of the left upper extremity. COMPARISON: None. HISTORY: ORDERING SYSTEM PROVIDED HISTORY: LUE swelling pain following surgery TECHNOLOGIST PROVIDED HISTORY: Reason for exam:->LUE swelling pain following surgery What reading provider will be dictating this exam?->CRC FINDINGS: There is normal flow and compressibility of the visualized venous structures. There is no evidence of echogenic thrombus. The veins demonstrate good compressibility with normal color flow study and spectral analysis. IMPRESSION: No evidence of DVT. [employer] Phone: JULIO [employer] Phone: Radiology Study observation (narrative) JULIO ORTIZ [employer] Phone: XR KNEE RIGHT (1-2 VIEWS)on 07-01-2022 XR KNEE RIGHT (1-2 VIEWS) EXAMINATION: TWO XRAY VIEWS OF THE RIGHT KNEE 07/01/2022 1:32 pm COMPARISON: None. HISTORY: ORDERING SYSTEM PROVIDED HISTORY: status post right total knee arthrooplasty revision TECHNOLOGIST PROVIDED HISTORY: Of operative side while in recovery room. Reason for exam:->status post right total knee arthrooplasty revision Is the patient ?->No What reading provider will be dictating this exam?->CRC FINDINGS: A total knee arthroplasty is seen. Alignment is normal in cortices are intact. Overlying surgical dee are seen IMPRESSION: Normal postsurgical appearance Interpreted by: Jean Sifuentes MD Signed by: Jean Sifuentes MD 07/01/22 Final result Normal [facility] Normal postsurgical appearance [facility] RADIOLOGY EXAMINATION: TWO XRAY VIEWS OF THE RIGHT KNEE 07/01/2022 1:32 pm COMPARISON: None. HISTORY: ORDERING SYSTEM PROVIDED HISTORY: status post right total knee arthrooplasty revision TECHNOLOGIST PROVIDED HISTORY: Of operative side while in recovery room. Reason for exam:->status post right total knee arthrooplasty revision Is the patient ?->No What reading provider will be dictating this exam?->CRC FINDINGS: A total knee arthroplasty is seen. Alignment is normal in cortices are intact. Overlying surgical dee are seen [facility] RADIOLOGY Jean Sifuentes MD - 07/01/2022 EXAMINATION: TWO XRAY VIEWS OF THE RIGHT KNEE 07/01/2022 1:32 pm COMPARISON: None. HISTORY: ORDERING SYSTEM PROVIDED HISTORY: status post right total knee arthrooplasty revision TECHNOLOGIST PROVIDED HISTORY: Of operative side while in recovery room. Reason for exam:->status post right total knee arthrooplasty revision Is the patient ?->No What reading provider will be dictating this exam?->CRC FINDINGS: A total knee arthroplasty is seen. Alignment is normal in cortices are intact. Overlying surgical dee are seen IMPRESSION: Normal postsurgical appearance [employer] Phone: Radiology Study observation (narrative) JULIO ORTIZ [employer] Phone: XR KNEE RIGHT (1-2 VIEWS)Ord ered By: Jean Sifuentes on 07-01-2022 [employer] Phone: MRSA DNA Probe, Nasalon 03-0 MRSA, DNA, Nasal Negative NEG [employer] Comment on above: NEGATIVE: MRSA DNA n ot detected by nucleic acid amplification. Results should be used as an adjunct to nosocomial control efforts to identify patients needing enhanced precautions. The test is not intended to identify patients with staphylococcal infections. Results should not be used to guide or monitor treatment for MRSA infections. [facility] [address] [place] [address] [id number] ([phone] Specimen Description Swab [facility] Tape TV [facility] Tape TV MRSA, DNA, Nasalon 3 MRSA, DNA, Nasal Negative Normal NEG [facility] Comment on above: Result Comment: NEGA TIVE: MRSA DNA not detected by nucleic acid amplification. Results should be used as an adjunct to nosocomial control efforts to identify patients needing enhanced precautions. The test is not intended to identify patients with staphylococcal infections. Results should not be used to guide or monitor treatment for MRSA infections. [address] [id number] ([phone] Performed By: #### I MRSA #### [facility] [address] [place] [address] EKG 12 LeadOrdered By: Leigh Ann Nash on 06-25-2022 Atrial Rate 73 BPM [employer] Work Phone: P [place] 33 degrees [employer] Work Phone: P-R Interval 160 ms [employer] Work Phone: Q-T Interval 406 ms [employer] Work Phone: QRS Duration 102 ms [employer] Work Phone: QTc Calculation (Bazett) 447 ms [employer] Work Phone: R [place] 74 degrees [employer] Phone: T [place] 65 degrees [employer] Phone: Ventricular Rate 73 BPM [employer] Work Phone: [employer] Work Phone: EKG 12 Leadon 06-25-2022 Normal sinus rhythm Incomplete right bundle branch block Confirmed by LEIGH ANN NASH ([id number]) on 06/25/2022 6:49:48 PM JUAN HIDALGO Leigh Ann Nash SheilaDO - 06/25/2022 Normal sinus rhythm Incomplete right bundle branch block Confirmed by LEIGH ANN NASH ([id number]) on 06/25/2022 6:49:48 PM [employer] Work Phone: Established Visit (Orthopaed ic Surgery)on 06-25-2022 Established Visit (Orthopaedic Surgery) Chief Complaint Pre-op RT TK-Revision 07/01/22 @ [facility] History of Present Illness This patient has pain in the knee that is worsening. The pain increases with activity and with weightbearing, and interferes with daily activities. There is pain with range of motion, limited range of motion, crepitus and swelling. The x-ray demonstrates joint space narrowing, osteophyte formation, and subchondral sclerosis. The symptoms have worsened in spite of extensive medical treatment, therapy, and external support over at least the past 3 months. This is the preop visit to discuss the risks and benefits of the total knee replacement surgery. These risks were fully explained to the patient. With this, and any surgery, infection is a risk, this is usually 1 to 2%, even higher in diabetics, persons with rheumatoid arthritis, previous surgeries, on oral steroid medications, and obesity. All of these issues were properly addressed. We always assure all sterile techniques will be followed. Patient will also need to be on antibiotics for the next 2 years for any minor surgery, even dental work. For high risk patients, this will be for lifetime. Severe infections may require removal of the prosthesis. It was also explained to the patient that there will be some minor blood loss during the procedure and a blood transfusion may be recommended if medically necessary. It is also noted that with knee surgery a tourniquet is applied to the lower extremity to limit blood loss during the procedure. Pulmonary embolism and blood clots are also discussed with the patient. We discussed that these can be fatal complications to the surgery. It is explained to the patient that the use of thromboembolic stockings, foot pumps, incentive spirometer's, early mobility, and the use of blood thinners for period of time is the standard of care for prevention of blood clots. Patient's preoperative range of motion is 0-110 degrees. It is explained to the patient that this type of surgery is to decrease arthritis pain and sometimes stiffness may occur. It is important that the patient go to physical therapy postoperatively. It is also stated that occasionally we will have to manipulate the knee if pain and stiffness persists. Loosening and wear of the prosthesis are also discussed. The prosthesis normally last between 12 and 15 years. Revisions may be more complicated and with higher risk. Fractures, though rare, may also occur intraoperatively. These fractures may be to the tibia or to the femur. There may be nerve or arterial injuries as well and these are discussed in detail. Lastly, the benefits of spinal anesthesia were explained to the patient. Patient plans on performing outpatient physical therapy at [facility]. All of the patient's questions and concerns were answered. This note was prepared using voice recognition software. The details of this note are correct and have been reviewed, and corrected to the best of my ability. Some grammatical areas may persist related to the [employer] Merrill Alejandro PA-C . Active Problems Problems Acute pain of both knees (338.19,719.46) (M25.561,M25.562) Allergies Medication Penicillins Recorded By: Tarsha Murray; 05/18/2022 8:47:33 AM Signatures Electronically signed by : Merrill Alejandro PA-C; Jun 25 2022 2:21PM EST (Author) Normal [employer] PT Initial Evaluationon 03-0 PT Initial Evaluation Therapy Diagnosis Assessed Acute pain of both knees (338.19,719.46) (M25.561,M25.562) Plan of Care Goals: Goals set and discussed today. DNT due to surgery Planned interventions include:. education/instruction, home program, self care/home management, therapeutic activities, therapeutic exercises, edema control, modalities, gait training. Frequency and duration: 1 time(s) a week, for 1 visits. Potential to achieve rehab goals is good Plan of care was developed with input and agreement by the patient. Assessment Pt is a 52 yo female presenting to the clinic for a pre-op appointment for a R TKA on 07/01/[address] Acosta Schafer. Pt demonstrates decreased ROM and strength of the R knee causing pain and dysfunction with walking, standing, stairs, squatting, and STSs. Pt was given and reviewed surgical overview booklet including procedure, s/s of infection/blood clots, gait/transfers/stairs with AD, and HEP. Pt will be discharged due to attending post-op therapy at a different clinic. Clinical Presentation: Stable and/or uncomplicated characteristics. Level of Complexity: low Problem List:. decreased knowledge of HEP, activity limitations, ADLs/IADLs/self care skills, flexibility, motor function/control/tone, pain, participation restrictions, range of motion/joint mobility, strength, posture, gait/locomotion, balance, coordination, fall risk, transfers, decreased knowledge of assisted device use, integumentary, decreased knowledge of precautions. PT Pre-Op Assessment: Additional Comments: Patient demonstrates independent knowledge and understanding of: anatomy, surgical procedure, post-operative exercise programs, signs and symptoms of post- operative infection and post - operative management of pain. Patient demonstrates good safety awareness and modified independence with ambulation: 3-point gait pattern, with RW, WBAT weight bearing on R LE, on level surfaces and on stairs. Handouts Given: surgical overview booklet, post-operative exercises and gait training instructions. Plan of Care: Patient will be placed on hold for therapy until after completion of surgical procedure. Upon return to therapy, patient's status will be re-assessed and goals updated. Reason For Visit Initial Evaluation, Pre-Op . Referred by: Dr. Acosta Schafer Adult Risk Screening Initial Fall Risk Screening: GEETA has not fallen in the last 6 months. GEETA does not have a fear of falling. The patient is not using an assistive device. Fall Risk Screening: patient is not considered a fall risk. Insurance Insurance reviewed Visit number: 1 Requires authorization after Jose BARCENAS Subjective Current Episode of Functional Impairment and/or Pain Date of onset: 06/25/16 Mechanism of Injury: insidious onset . Pt will be having a R TKA Revision from a partial on 07/01/[address] Acosta Schafer. Pt states that she had her R knee partial replacement done in 2017. Pain Location: R knee Pain Best: 6/10 Pain Today: 6/10 Pain Worst: 10/10 Pain Type: Constant, Achy/Dull, Sharp, Stiffness/Tightness, Numbness/Tingling (L foot greater than R) Difficulty Sleeping: No Night Sweats, Loss of Appetite, Unexpected Weight-loss: No. Pain Exacerbating Factors:. walking, standing, stairs, squatting, and STSs. Pain Relieving Factors: rest. Medical Screening: Reviewed medical history form with patient and medical screening assessed. Functional Assessment Prior level of function: I with ADLs/IADLs. Patient stated goal(s) for treatment include: relieving pain , increasing strength , increasing mobility , walking with a normal gait , reducing symptoms and returning to regular activity levels . Current Status: unchanged. Patient Awareness: Patient is aware of her diagnosis and prognosis. Living Environment: 2 steps without steps into the house. Social Support: lives alone. Objective Ortho Knee ROM - R knee Extension: lacking at least 15 deg R knee Flexion: 116 deg . Treatment Time in clinic started at 1:06 pm Time in clinic ended at 1:38 pm Total time in clinic is 32 minutes. Total timed code time is 32 minutes. Response to treatment: improved motor control, improved gait and improved knowledge and understanding of condition. Patient was able to complete today's treatment with some difficulty. Evaluation Code: 76163 PT Eval: Low Complexity, 32 min(s). Resources provided today: education Signatures Electronically signed by : Natali Tyson, PT DPT; Jun 30 2022 10:08AM EST (Author) Normal [employer] APTTon 06-24-2022 aPTT Coag (Bld) [Time] 30.1 s [facility] Comment on above: Effective 02/27/2020: Heparin Therapeutic Range: 64.0 98.0 seconds. [facility] CBC With Platelet and Differ entialon 06-24-2022 Basophils (Bld) [#/Vol] 0.1 10*3/uL Normal 0.0-0.2 [facility] Comment on above: Performed By: #### C BCWD #### [facility] [address] [place] [address] Basophils/100 WBC (Bld) 0.6 % Normal [facility] Comment on above: Performed By: #### C BCWD #### [facility] [address] [place] [address] Eosinophils (Bld) [#/Vol] 0.1 10*3/uL Normal 0.0-0.7 [facility] Comment on above: Performed By: #### C BCWD #### [facility] [address] [place] [address] Eosinophils/100 WBC (Bld) 1.6 % Normal [facility] Comment on above: Performed By: #### C BCWD #### [facility] [address] [place] [address] Erythrocyte distribution width (RBC) [Ratio] 16.4 % Critically high 11.5-14.5 [facility] Comment on above: Performed By: #### C BCWD #### [facility] [address] [place] [address] Hematocrit (Bld) [Volume fraction] 44.4 % Normal 37.0-47.0 [facility] Comment on above: Performed By: #### C BCWD #### [facility] [address] [place] [address] Hemoglobin (Bld) [Mass/Vol] 14.2 g/dL Normal 12.0-16.0 [facility] Comment on above: Performed By: #### C BCWD #### [facility] [address] [place] [address] Lymphocytes (Bld) [#/Vol] 2.3 10*3/uL Normal 1.0-4.8 [facility] Comment on above: Performed By: #### C BCWD #### [facility] [address] [place] [address] Lymphocytes/100 WBC (Bld) 25.8 % Normal [facility] Comment on above: Performed By: #### C BCWD #### [facility] [address] [place] [address] MCH (RBC) [Entitic mass] 25.1 pg Low 27.0-31.3 [facility] Comment on above: Performed By: #### C BCWD #### [facility] [address] [place] [address] MCHC 32.0 % Low 33.0-37.0 [facility] Comment on above: Performed By: #### C BCWD #### [facility] [address] [place] [address] MCV (RBC) [Entitic vol] 78.5 fL Low 79.4-94.8 [facility] Comment on above: Performed By: #### C BCWD #### [facility] [address] [place] [address] Monocytes (Bld) [#/Vol] 0.8 10*3/uL Normal 0.2-0.8 [facility] Comment on above: Performed By: #### C BCWD #### [facility] [address] [place] [address] Monocytes/100 WBC (Bld) 9.4 % Normal [facility] Comment on above: Performed By: #### C BCWD #### [facility] [address] [place] [address] Neutrophils (Bld) [#/Vol] 5.6 10*3/uL Normal 1.4-6.5 [facility] Comment on above: Performed By: #### C BCWD #### [facility] [address] [place] [address] Neutrophils/100 WBC (Bld) 62.6 % Normal [facility] Comment on above: Performed By: #### C BCWD #### [facility] [address] [place] [address] Platelets (Bld) [#/Vol] 281 10*3/uL Normal 130-400 [facility] Comment on above: Performed By: #### C BCWD #### [facility] [address] [place] [address] RBC (Bld) [#/Vol] 5.66 10*6/uL Critically high 4.20-5.40 [facility] Comment on above: Performed By: #### C BCWD #### [facility] [address] [place] [address] WBC (Bld) [#/Vol] 8.9 10*3/uL Normal 4.8-10.8 [facility] Comment on above: Performed By: #### C BCWD #### [facility] [address] [place] [address] CBC with Auto Differentialon 06-24-2022 Basophils (Bld) [#/Vol] 0.1 10*3/uL 0.0 - 0.2 K/uL [facility] Basophils/100 WBC (Bld) 0.6 % [facility] Eosinophils (Bld) [#/Vol] 0.1 10*3/uL 0.0 - 0.7 K/uL [facility] Eosinophils/100 WBC (Bld) 1.6 % [facility] Hematocrit (Bld) [Volume fraction] 44.4 % 37.0 - 47.0 % [facility] Hemoglobin (Bld) [Mass/Vol] 14.2 g/dL 12.0 - 16.0 g/dL [facility] Interpretation and review of laboratory results Abnormal [facility] Lymphocytes (Bld) [#/Vol] 2.3 10*3/uL 1.0 - 4.8 K/uL [facility] Lymphocytes/100 WBC (Bld) 25.8 % [facility] MCH (RBC) [Entitic mass] 25.1 pg Low 27. 0 - 31.3 pg [facility] MCHC (RBC) [Mass/Vol] 32.0 % Low 33.0 - 37.0 % [facility] MCV (RBC) [Entitic vol] 78.5 fL Low 79.4 - 94.8 fL [facility] Monocytes (Bld) [#/Vol] 0.8 10*3/uL 0.2 - 0.8 K/uL [facility] Monocytes/100 WBC (Bld) 9.4 % [facility] Neutrophils Absolute 5.6 K/uL 1.4 - 6 .5 K/uL [facility] Neutrophils/100 WBC (Bld) 62.6 % [facility] Platelet distribution width (Bld) [Ratio] 16.4 % High 11.5 - 14.5 % [facility] Platelets (Bld) [#/Vol] 281 10*3/uL 130 - 400 K/uL [facility] RBC (Bld) [#/Vol] 5.66 10*6/uL High [facility] WBC (Bld) [#/Vol] 8.9 10*3/uL 4.8 - 10.8 K/uL [facility] Comprehensive Metabolic Pane gretel 06-24-2022 Albumin [Mass/Vol] 4.2 g/dL Normal 3.5-4.6 [facility] Comment on above: Performed By: #### U MARIA ELENA #### [facility] [address] [place] [address] ALP [Catalytic activity/Vol] 89 U/L Normal 40-130 [facility] Comment on above: Performed By: #### U MARIA ELENA #### [facility] [address] [place] [address] ALT [Catalytic activity/Vol] 47 U/L Critically high 0-33 [facility] Comment on above: Performed By: #### U MARIA ELENA #### [facility] [address] [place] [address] Anion gap [Moles/Vol] 13 mmol/L Normal 9-15 [facility] Comment on above: Performed By: #### U MARIA ELENA #### [facility] [address] [place] [address] AST [Catalytic activity/Vol] 44 U/L Critically high 0-35 [facility] Comment on above: Performed By: #### U MARIA ELENA #### [facility] [address] [place] [address] Bilirubin [Mass/Vol] 0.5 mg/dL Normal 0.2-0.7 [facility] Comment on above: Performed By: #### U MARIA ELENA #### [facility] [address] [place] [address] Calcium [Mass/Vol] 9.2 mg/dL Normal 8.5-9.9 [facility] Comment on above: Performed By: #### U MARIA ELENA #### [facility] [address] [place] [address] Chloride [Moles/Vol] 100 mmol/L Normal 95-107 [facility] Comment on above: Performed By: #### U MARIA ELENA #### [facility] [address] [place] [address] CO2 [Moles/Vol] 26 mmol/L Normal 20-31 [facility] Comment on above: Performed By: #### U MARIA ELENA #### [facility] [address] [place] [address] Creatinine [Mass/Vol] 0.54 mg/dL Normal 0.50-0.90 [facility] Comment on above: Performed By: #### U MARIA ELENA #### [facility] [address] [place] [address] GFR >60.0 Normal >60 [facility] Comment on above: Result Comment: Myra atric calculator link https://www.kidney.org/professionals/kdoqi/gfr_calculatorped Effective Jan 25, 2022 These results are not intended for use in patients <18 years of age. eGFR results are calculated without a race factor using the 2020 CKD-EPI equation. Careful clinical correlation is recommended, particularly when comparing to results calculated using previous equations. The CKD-EPI equation is less accurate in patients with extremes of muscle mass, extra-renal metabolism of creatinine, excessive creatinine ingestion, or following therapy that affects renal tubular secretion. Performed By: #### U MARIA ELENA #### [facility] [address] [place] [address] Globulin (S) [Mass/Vol] 3.9 g/dL Critically high 2.3-3.5 [facility] Comment on above: Performed By: #### U MARIA ELENA #### [facility] [address] [place] [address] Glucose [Mass/Vol] 124 mg/dL Critically high 70-99 [facility] Comment on above: Performed By: #### U MARIA ELENA #### [facility] [address] [place] [address] Potassium [Moles/Vol] 4.4 mmol/L Normal 3.4-4.9 [facility] Comment on above: Performed By: #### U MARIA ELENA #### [facility] [address] [place] [address] Protein [Mass/Vol] 8.1 g/dL Critically high 6.3-8.0 [facility] Comment on above: Performed By: #### U MARIA ELENA #### [facility] [address] [place] [address] Sodium [Moles/Vol] 139 mmol/L Normal 135-144 [facility] Comment on above: Performed By: #### U MARIA ELENA #### [facility] [address] [place] [address] Urea nitrogen [Mass/Vol] 14 mg/dL Normal 6-20 [facility] Comment on above: Performed By: #### U MARIA ELENA #### [facility] [address] [place] [address] Albumin [Mass/Vol] 4.2 g/dL 3.5 - 4.6 g/dL [facility] ALP (Bld) [Catalytic activity/Vol] 89 U/L 40 - 130 U/L [facility] ALT [Catalytic activity/Vol] 47 U/L High 0 - 33 U/L [facility] Anion gap [Moles/Vol] 13 mmol/L [facility] AST [Catalytic activity/Vol] 44 U/L High 0 - 35 U/L [facility] Bilirubin [Mass/Vol] 0.5 mg/dL 0.2 - 0 .7 mg/dL [facility] Calcium [Mass/Vol] 9.2 mg/dL 8.5 - 9.9 mg/dL [facility] Chloride [Moles/Vol] 100 mmol/L [facility] CO2 [Moles/Vol] 26 mmol/L [facility] Creatinine [Mass/Vol] 0.54 mg/dL 0.50 - 0.90 mg/dL [facility] GFR/1.73 sq M.predicted MDRD (S/P/Bld) [Vol rate/Area] 60 - PINF [facility] Comment on above: Pediatric calculator link https://www.kidney.org/professionals/kdoqi/gfr_calculatorped Effective Jan 25, 2022 These results are not intended for use in patients <18 years of age. eGFR results are calculated without a race factor using the 2020 CKD-EPI equation. Careful clinical correlation is recommended, particularly when comparing to results calculated using previous equations. The CKD-EPI equation is less accurate in patients with extremes of muscle mass, extra-renal metabolism of creatinine, excessive creatinine ingestion, or following therapy that affects renal tubular secretion. Globulin (S) [Mass/Vol] 3.9 g/dL High 2.3 - 3.5 g/dL [facility] Glucose [Mass/Vol] 124 mg/dL High 70 - 99 mg/dL [facility] Interpretation and review of laboratory results Abnormal [facility] Potassium [Moles/Vol] 4.4 mmol/L [facility] Protein [Mass/Vol] 8.1 g/dL High 6.3 - 8.0 g/dL [facility] Sodium [Moles/Vol] 139 mmol/L [facility] Urea nitrogen (BldV) [Mass/Vol] 14 mg/dL 6 - 20 mg/dL [facility] Laboratory - Coagulationon 0 06-24-2022 INR Coag (Bld) [Relative time] 1.1 {INR} [facility] Work Phone: Laboratory - Hematology and Cell countson 06-24-2022 Basophils/100 WBC (Bld) 0.6 % [facility] [employer] Work Phone: Eosinophils/100 WBC (Bld) 1.6 % Normal [facility] Work Phone: Lymphocytes/100 WBC (Bld) 25.8 % Normal [facility] Work Phone: Monocytes/100 WBC (Bld) 9.4 % Normal [facility] Work Phone: Neutrophils/100 WBC (Bld) 62.6 % Normal [facility] Work Phone: MRSA, DNA, Nasalon 3 Specimen Description Swab Normal [facility] Comment on above: Performed By: #### I MRSA #### [facility] [address] [place] [id number] Microscopic Urinalysison Bacteria, UA FEW Abnormal Negative /HPF [facility] [employer] Epithelial Cells, UA 0-2 [facility] [employer] Hyaline Casts, UA 0-1 [facility] [employer] RBC, UA 0-2 [facility] [employer] WBC, UA 3-5 [facility] [employer] No Panel Informationon 06-24 Interpretation and review of laboratory results Abnormal [facility] [employer] TRACE Abnormal Negative [facility] Work Phone: Negative Normal Negative [facility] Work Phone: 0.2 {E.U./dL} Normal < 2.0 [facility] Work Phone: 30 mg/dL Abnormal Negative [facility] Work Phone: 7.0 1 Normal 5.0-9.0 [facility] Work Phone: Not Indicated Normal [facility] Work Phone: [phone] 1 Normal 1.005-1.03 [facility] Work Phone: Clear Normal Clear [facility] Work Phone: Yellow Normal [place] [facility] Work Phone: 0-2 Normal 0-5 [facility] Work Phone: [phone] 3-5 Normal 0-5 [facility] Work Phone: [phone] 0-1 Normal 0-5 [facility] Work Phone: [phone] FEW Abnormal Negative [facility] Work Phone: [phone] K/uL Normal 130-400 [facility] Work Phone: 16.4 % above high threshold 11.5-14.5 [facility] Work Phone: [phone] 32.0 % below low threshold 33.0-37.0 [facility] Work Phone: [phone] 0.1 K/uL Normal 0.0-0.2 [facility] Work Phone: [phone] 0.8 K/uL Normal 0.2-0.8 [facility] Work Phone: [phone] 2.3 K/uL Normal 1.0-4.8 [facility] Work Phone: [phone] 5.6 K/uL Normal 1.4-6.5 [facility] Work Phone: [phone] 25.1 pg below low threshold 27.0-31.3 [facility] Work Phone: [phone] 78.5 fL below low threshold 79.4-94.8 [facility] Work Phone: [phone] 44.4 % Normal 37.0-47.0 [facility] Work Phone: [phone] 14.2 g/dL Normal 12.0-16.0 [facility] Work Phone: [phone] 5.66 {M/uL} above high threshold 4.20-5.40 [facility] Work Phone: 8.9 K/uL Normal 4.8-10.8 [facility] Work Phone: 14.8 {sec} Normal 12.3-14.9 [facility] Work Phone: 30.1 {sec} Normal 24.4-36.8 [facility] Work Phone: Comment on above: Effective 02/27/2020: Heparin Therapeutic Range: 64.0 ? 98.0 seconds. 4.2 g/dL Normal 3.5-4.6 [facility] Work Phone: 3.9 g/dL above high threshold 2.3-3.5 [facility] Work Phone: 44 U/L above high threshold 0-35 [facility] Work Phone: 47 U/L above high threshold 0-33 [facility] Work Phone: 89 U/L Normal 40-130 [facility] Work Phone: 0.5 mg/dL Normal 0.2-0.7 [facility] Work Phone: 8.1 g/dL above high threshold 6.3-8.0 [facility] Work Phone: 9.2 mg/dL Normal 8.5-9.9 [facility] Work Phone: >60.0 Normal >60 [facility] Work Phone: Comment on above: Pediatric calculator linkhttps://www.kidney.org/professionals/kdoqi/gfr_calculator pedEffective Jan 25, 2022These results are not intended for use in patients<18 years of age. eGFR results are calculated withouta race factor using the 2020 CKD-EPI equation. Carefulclinical correlation is recommended, particularly whencomparing to results calculated using previous equations.The CKD-EPI equation is less accurate in patients withextremes of muscle mass, extra-renal metabolism ofcreatinine, excessive creatinine ingestion, or followingtherapy that affects renal tubular secretion. 0.54 mg/dL Normal 0.50-0.90 [facility] Work Phone: [phone] 14 mg/dL Normal 6-20 [facility] Work Phone: 124 mg/dL above high threshold 70-99 [facility] Work Phone: 13 {mEq/L} Normal 9-15 [facility] Work Phone: 26 {mEq/L} Normal 20-31 [facility] Work Phone: 100 {mEq/L} Normal 95-107 [facility] Work Phone: 4.4 {mEq/L} Normal 3.4-4.9 [facility] Work Phone: 139 {mEq/L} Normal 135-144 [facility] Work Phone: Negative Normal NEG [facility] Work Phone: Comment on above: NEGATIVE: MRSA DNA n ot detected by nucleic acid amplification. Results should be used as an adjunct to nosocomial control efforts toidentify patients needing enhanced precautions.The test is not intended to identify patients with staphylococcalinfections. Results should not be used to guide or monitor treatmentfor MRSA infections.[employer] [facility] [place], [place] [id number] ([phone] Swab Normal [facility] Work Phone: Partial Thromboplastin Timeo n 06-24-2022 aPTT Coag (Bld) [Time] 30.1 s Normal 24.4-36.8 [facility] Comment on above: Result Comment: Effe ctive 02/27/2020: Heparin Therapeutic Range: 64.0 ? 98.0 seconds. Performed By: #### U MARIA ELENA #### [facility] [address] [place] [address] Prothrombin Timeon 3 INR Coag (PPP) [Relative time] 1.1 {INR} Normal [facility] Comment on above: Performed By: #### P T #### [facility] [address] [place] [address] PT Coag (PPP) [Time] 14.8 s Normal 12.3-14.9 [facility] Comment on above: Performed By: #### P T #### [facility] [address] [place] [address] Protime-INRon 06-24-2022 INR Coag (Bld) [Relative time] 1.1 {INR} [facility] PT Coag (PPP) [Time] 14.8 s [facility] [employer] TYPE AND SCREENon 06-24-2022 ABO/Rh Negative [facility] Comment on above: @06/24/22 14:01 by Elaina BLACKMONLY: BACK TYPE CONFIRMED IN TUBE. LMB Confirmation type ne eds to be drawn. [facility] Type and 3 cell Screen OB Ca ptureon 06-24-2022 Type and 3 cell Screen OB Capture PATIENT: PINKY Prince LOC: [facility] BILL# : [id number] : 1970 SEX: F ORDERED BY: GILMAR COX ORDERED : 06/24/2022 11:08 COLLECTED: 06/24/2022 11:45 ORDER : [id number] RECEIVED : 06/24/2022 11:45 Confirmation type needs to be drawn. --- TEST NAME RESULT UNITS RANGES ABN FL ST ABORH Capture A NEG F @06/24/22 14:01 by RUDY: BACK TYPE CONFIRMED IN TUBE. LMB Antibody 3 Cell Scrn Captu NEG F -- Normal [facility] Comment on above: Performed By: #### T SO3C #### [facility] [address] [place] [address] Urinalysis with Reflex to Cu ltureon 06-24-2022 Bilirubin Urine Negative Negative [facility] [employer] Blood, Urine Negative Negative [facility] Clarity, UA Clear Clear [facility] Color, UA Yellow [facility] [facility] [employer] Glucose, Ur Negative Negative mg/dL [facility] Ketones Ql (U) Negative Negative mg/dL [employer] [facility] Leukocyte esterase Test strip Ql (U) TRACE Abnormal Negative [facility] [employer] Nitrite, Urine Negative Negative [facility] [employer] pH, UA 7.0 5.0 - 9.0 [facility] Protein (U) [Mass/Vol] 30 mg/dL Abnormal Negative [facility] [employer] Specific [place], UA 1.010 1.005 - 1.030 [facility] Urine Reflex to Culture Not Indicated [facility] Urobilinogen, Urine 0.2 NINF [facility] [employer] Urinalysis, reflex to cultur gurinder 06-24-2022 Urine Reflexed to Culture Not Indicated Normal [facility] Comment on above: Performed By: #### U AR #### [facility] [address] [place] [address] Bilirubin Ql (U) Negative Normal Negative [facility] Comment on above: Performed By: #### U AR #### [facility] [address] [place] [address] Clarity (U) Clear Normal Clear [facility] Comment on above: Performed By: #### U AR #### [facility] [address] [place] [address] Color (U) Yellow Normal [facility] [facility] Comment on above: Performed By: #### U AR #### [facility] [address] [place] [address] Glucose Ql (U) Negative Normal Negative [facility] Comment on above: Performed By: #### U AR #### [facility] [address] [place] [address] Hemoglobin Ql (U) Negative Normal Negative [facility] Comment on above: Performed By: #### U AR #### [facility] [address] [place] [address] Ketones Ql (U) Negative Normal Negative [facility] Comment on above: Performed By: #### U AR #### [facility] [address] [place] [address] Leukocyte esterase Test strip Ql (U) TRACE Abnormal Negative [facility] Comment on above: Performed By: #### U AR #### [facility] [address] [place] [address] Nitrite Ql (U) Negative Normal Negative [facility] Comment on above: Performed By: #### U AR #### [facility] [address] [place] [address] pH (U) 7.0 [pH] Normal 5.0-9.0 [facility] Comment on above: Performed By: #### U AR #### [facility] [address] [place] [address] Protein Ql (U) 30 mg/dL Abnormal Negative [facility] Comment on above: Performed By: #### U AR #### [facility] [address] [place] [address] Specific gravity (U) [Rel density] 1.010 Normal 1.005-1.03 [facility] Comment on above: Performed By: #### U AR #### [facility] [address] [place] [address] Urobilinogen Qn (U) 0.2 {Reji'U}/dL Normal < 2.0 [facility] Comment on above: Performed By: #### U AR #### [facility] [address] [place] [address] Urine Microscopicon 06-25-19 23 Urine Bacteria FEW Abnormal Negative [facility] Comment on above: Performed By: #### U MARIA ELENA #### [facility] [address] [place] [address] Urine Epithelial Cells Auto 0-2 Normal 0-5 [facility] Comment on above: Performed By: #### U MARIA ELENA #### [facility] [address] [place] [address] Urine Hyaline Casts Auto 0-1 Normal 0-5 [facility] Comment on above: Performed By: #### U MARIA ELENA #### [facility] [address] [place] [address] Urine RBC Auto 0-2 Normal 0-5 [facility] Comment on above: Performed By: #### U MARIA ELENA #### [facility] [address] [place] [address] Urine WBC Auto 3-5 Normal 0-5 [facility] Comment on above: Performed By: #### U MARIA ELENA #### [facility] [address] [place] [address] BILATERAL KNEE COMPLT, 4 OR MORE VIEWSon 05-18-2022 BILATERAL KNEE COMPLT, 4 OR MORE VIEWS Patient Name: GEETA SHELTON STUDY: BILATERAL KNEE; COMPLT, 4 OR MORE VIEWS; ; 05/18/2022 9:07 am INDICATION: pain M25.561: Acute pain of both knees M25.562:. ACCESSION NUMBER(S): [id number] ORDERING CLINICIAN: ACOSTA SCHAFER FINDINGS: Weightbearing four views both knees. Patient status post left total knee replacement in good alignment questionable subsidence along the medial tibial plateau no signs of fracture dislocation or other bony abnormalities patella appears to not resurfaced with arthritic changes. 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 : pain Chief Complaint new patient. bilat knee pain. xrays today. History of Present Illness New patient to me 52-year-old female here for both knees mostly her right knee she states the right knee been giving her trouble for quite some time recently she has had some soreness in her left knee she had a right unicondylar knee replacement in 2017 she had a left total knee replacement in 2015. She does not really remember what we are her surgeon did the operation or who her surgeon was but her right knee has been giving her trouble for quite some time she recently had some x-rays and a bone scan was told there was some bone rubbing on bone and some loosening she comes in today for consultation. She denies any fevers or chills denies any complications from her previous procedure. Location of pain: Right knee greater than left knee mostly along the medial aspect Quality of pain: Chronic pain for the last several years getting progressively worse Modifying factors: Worse with weightbearing twisting or pivoting activity better with rest Associated signs and symptoms: A lot of popping clicking grinding swelling no redness no drainage Previous treatment: She is tried anti-inflammatory medications and extensive physical therapy without improvement Past medical history The patient's past medical history, family history, social history, and review of systems were documented on the patient's medical intake form. The medical intake form was reviewed and scanned into the electronic medical record for future use. History is otherwise negative except as stated in the HPI. Physical exam General: Alert and oriented to place, person, and time. No acute distress and breathing comfortably; pleasant and cooperative with the examination. HEENT: Head is normocephalic and atraumatic. Neck: Supple, no visible swelling. Cardiovascular: Good perfusion to the affected extremity. Lungs: No audible wheezing or labored breathing. Abdomen: Nondistended HEME/Lymph : No visible abnormalities bilateral lower extremity Extremity: Right knee has well-healed medial unicondylar knee incision good range of motion significant crepitus in the patellofemoral joint moderate varus valgus instability no signs of infection compartments are soft calf is nontender Left knee has a well-healed midline incision lacks about 10 degrees of full extension has flexion to 95 no instability brisk cap refill compartments soft calf is nontender no signs of infection Diagnostics: She brought with her multiple imaging modalities on disc which were reviewed we did repeat her knee x-rays today please see dictated x-ray report Procedures [none ] Assessment: Failed unicondylar knee replacement right, left total knee replacement Treatment plan: 1. The natural history of the condition and its associated treatment alternatives including surgical and nonsurgical options were discussed with the patient at length. 2. 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 I think her main issue is her right knee and she is having some compensatory difficulty with her left knee we discussed the possibility of revision total knee replacement on the right side. 3. Patient has failed all forms of conservative treatment. The joint pain is significantly affecting quality of life and activities of daily living. The patient has pain in the joint that is increased with activity and weightbearing, and walks with an antalgic gait. The pain is interfering with activities of daily living. Patient has limited range of motion and pain with passive range of motion. X-rays demonstrate joint space narrowing, subchondral sclerosis and osteophyte formation. Symptoms are not improving with medication, physical therapy or supportive device for a period of at least 3 months. Patient would like to go and schedule joint replacement surgery. The procedure its risks, benefits, and treatment alternatives were discussed at length and patient would like to proceed. Patient is going to schedule the procedure at their earliest convenience and see me back for a preop visit just prior. Preadmission testing, medical checkup, and insurance authorization will be performed in the meantime. Patient understands a joint replacement surgery is a last resort, although a very successful operation results are not guaranteed. 4. All of the patient's questions were answered. This note was prepared using voice recognition (more content not included)... Normal [facility]iology[facility] 05-[facility]-2022 XR Knee 4 Views [facility] Work Phone: Albumin [Mass/volume] in Ser um or PlasmaOrdered By: Elizabeth Alvarado on 05-07-2022 Albumin [Mass/Vol] 3.9 g/dL 3.2-5.5 [facility] Alkaline phosphatase [Enzyma tic activity/volume] in Serum or PlasmaOrdered By: Elizabeth Alvarado on 05-07-2022 ALP [Catalytic activity/Vol] 83 U/L 32-92 [facility] Aspartate aminotransferase [ Enzymatic activity/volume] in Serum or PlasmaOrdered By: Elizabeth Alvarado on 05-07-2022 AST [Catalytic activity/Vol] 56 U/L 10-42 [facility] Basophils Auto (Bld) [#/Vol] Ordered By: Elizabeth Alvarado on 05-07-2022 Basophils (Bld) [#/Vol] 0.1 10*3/uL 0.0-0.2 [facility] Basophils/100 WBC Auto (Bld) Ordered By: Elizabeth Alvarado on 05-07-2022 Basophils/100 WBC (Bld) 0.7 % . [facility] Bilirubin.total [Mass/volume ] in Serum or PlasmaOrdered By: Elizabeth Alvarado on 05-07-2022 Bilirubin [Mass/Vol] 0.6 mg/dL 0.3-1.2 [facility] Calcium [Mass/volume] in Ser um or PlasmaOrdered By: Elizabeth Alvarado on 05-07-2022 Calcium [Mass/Vol] 9.1 mg/dL 8.2-10.2 [facility] Carbon dioxide, total [Moles /volume] in Serum or PlasmaOrdered By: Elizabeth Alvarado on 05-07-2022 CO2 [Moles/Vol] 28.1 mmol/L 22.0-30.0 [facility] Chloride [Moles/volume] in S hugo or PlasmaOrdered By: Elizabeth Alvarado on 05-07-2022 Chloride [Moles/Vol] 100 mmol/L 95-114 [facility] Cholesterol [Mass/volume] in Serum or PlasmaOrdered By: Elizabeth Alvarado on 05-07-2022 Cholesterol [Mass/Vol] 181 mg/dL 140-200 [facility] Comment on above: Chol less than 200 m g/dl low riskChol 201-239 mg/dl borderline riskChol 240 mg/dl and greater high risk Cholesterol in LDL Calc [Mas s/Vol]Ordered By: Elizabeth Alvarado on 05-07-2022 Cholesterol in LDL [Mass/Vol] 102 mg/dL 0-100 [facility] Comment on above: LDL ATP III CLASSIFI CATIONLDL less than 100 mg/dL OptimalLDL 100-129 mg/dL Near or above optimalLDL 130-159 mg/dL Borderline highLDL 160-189 mg/dL HighLDL greater than 189 mg/dL Very high Cholesterol in VLDL Calc [Ma ss/Vol]Ordered By: Elizabeth Alvarado on 05-07-2022 Cholesterol in VLDL [Mass/Vol] 20 mg/dL [facility] Creatinine and Glomerular fi ltration rate.predicted panel (S/P/Bld)Ordered By: Elizabeth Alvarado on 05-07-2022 Creatinine [Mass/Vol] 0.65 mg/dL 0.44-1.03 [facility] Eosinophils Auto (Bld) [#/Vo l]Ordered By: Elizabeth Alvarado on 05-07-2022 Eosinophils (Bld) [#/Vol] 0.1 10*3/uL 0.0-0.45 [facility] Eosinophils/100 WBC Auto (Bl d)Ordered By: Elizabeth Alvarado on 05-07-2022 Eosinophils/100 WBC (Bld) 1.8 % . [facility] Erythrocyte distribution wid th Auto (RBC) [Ratio]Ordered By: Elizabeth Alvarado on 05-07-2022 Erythrocyte distribution width (RBC) [Ratio] 17.8 % 11.9-15.3 [facility] Estimated glomerular filtrat ion rate (GFR) non- AmericanOrdered By: Elizabeth Alvarado on 05-07-2022 GFR/1.73 sq M.predicted among non-blacks MDRD (S/P/Bld) [Vol rate/Area] > 60 mL/Min [facility] Globulin Calc (S) [Mass/Vol] Ordered By: Elizabeth Alvarado on 05-07-2022 Globulin (S) [Mass/Vol] 3.7 g/dL [facility] Glucose [Mass/volume] in Ser um or PlasmaOrdered By: Elizabeth Alvarado on 05-07-2022 Glucose [Mass/Vol] 137 mg/dL 70-100 [facility] Comment on above: ADA recommended refe rence rangeRandom Glucose Reference Range is dependent on time and content of last meal. Glucose of more than 200 mg/dL in a nonstressed, ambulatory subject supports the diagnosis of Diabetes Mellitus. Hematocrit Auto (Bld) [Volum e fraction]Ordered By: Elizabeth Alvarado on 05-07-2022 Hematocrit (Bld) [Volume fraction] 45.4 % 34.0-46.4 [facility] Hemoglobin [Mass/volume] in BloodOrdered By: Elizabeth Alvarado on 05-07-2022 Hemoglobin (Bld) [Mass/Vol] 14.1 g/dL 11.8-15.4 [facility] Leukocytes [#/volume] correc silverio for nucleated erythrocytes in Blood by Automated counOrdered By: Elizabeth Alvarado on 05-07-2022 WBC corrected for nucl RBC Auto (Bld) [#/Vol] 7.9 10*3/uL 3.8-11.6 [facility] Lymphocytes Auto (Bld) [#/Vo l]Ordered By: Elizabeth Alvarado on 05-07-2022 Lymphocytes (Bld) [#/Vol] 2.4 10*3/uL 1.00-4.8 [facility] Lymphocytes/100 WBC Auto (Bl d)Ordered By: Elizabeth Alvarado on 05-07-2022 Lymphocytes/100 WBC (Bld) 30.9 % . [facility] MCH Auto (RBC) [Entitic mass ]Ordered By: Elizabeth Alvarado on 05-07-2022 MCH (RBC) [Entitic mass] 24.6 pg 24.7-34.3 [facility] MCHC Auto (RBC) [Mass/Vol]Or dered By: Elizabeth Alvarado on 05-07-2022 MCHC (RBC) [Mass/Vol] 31.0 g/dL 32.0-35.0 [facility] MCV Auto (RBC) [Entitic vol] Ordered By: Elizabeth Alvarado on 05-07-2022 MCV (RBC) [Entitic vol] 79.4 fL 80-100 [facility] Monocytes Auto (Bld) [#/Vol] Ordered By: Elizabeth Alvarado on 05-07-2022 Monocytes (Bld) [#/Vol] 0.7 10*3/uL 0.0-0.8 [facility] Monocytes/100 WBC Auto (Bld) Ordered By: Elizabeth Alvarado on 05-07-2022 Monocytes/100 WBC (Bld) 9.3 % . [facility] Neutrophils Auto (Bld) [#/Vo l]Ordered By: Elizabeth Alvarado on 05-07-2022 Neutrophils (Bld) [#/Vol] 4.5 10*3/uL 1.8-7.7 [facility] Neutrophils/100 WBC Auto (Bl d)Ordered By: Elizabeth Alvarado on 05-07-2022 Neutrophils/100 WBC (Bld) 57.3 % . [facility] No Panel InformationOrdered By: Elizabeth Alvarado on 05-07-2022 Estimated GFR () > 60 mL/Min [facility] Comment on above: GFR estimated refere nce range: According to KDOQI guidelines, <60 ml/min/1.73m2 is sufficient to diagnose a patient with chronic kidney disease. Pharmacy Creatinine Clearance (Chem N/A [facility] Nucleated erythrocytes [Pres ence] in Blood by Automated countOrdered By: Elizabeth Alvarado on 05-07-2022 Nucleated RBC Auto Ql (Bld) 0.1 /100{WBC} 0-0.5 [facility] Platelet mean volume Auto (B ld) [Entitic vol]Ordered By: Elizabeth Alvarado on 05-07-2022 Platelet mean volume (Bld) [Entitic vol] 9.4 fL 6.3-10.7 [facility] Platelets Auto (Bld) [#/Vol] Ordered By: Elizabeth Alvarado on 05-07-2022 Platelets (Bld) [#/Vol] 242 10*3/uL 150-450 [facility] Potassium [Moles/volume] in Serum or PlasmaOrdered By: Elizabeth Alvarado on 05-07-2022 Potassium [Moles/Vol] 4.3 mmol/L 3.5-5.1 [facility] Protein [Mass/volume] in Ser um or PlasmaOrdered By: Elizabeth Alvarado on 05-07-2022 Protein [Mass/Vol] 7.6 g/dL 6.1-7.9 [facility] RBC Auto (Bld) [#/Vol]Ordere d By: Elizabeth Alvarado on 05-07-2022 RBC (Bld) [#/Vol] 5.72 10*6/uL 3.60-5.00 [facility] Serum or plasma alanine ulloa otransferase measurement without P-5'-P (enzymatic activiOrdered By: Elizabeth Alvarado on 05-07-2022 ALT No additional P-5'-P [Catalytic activity/Vol] 61 U/L 10-60 [facility] Serum or plasma albumin/glob ulin mass ratioOrdered By: Elizabeth Alvarado on 05-07-2022 Albumin/Globulin [Mass ratio] 1.1 {ratio} [facility] Serum or plasma anion gap de terminationOrdered By: Elizabeth Alvarado on 05-07-2022 Anion gap [Moles/Vol] 11.2 mmol/L 6.0-15.0 [facility] Serum or plasma high density lipoprotein (HDL) cholesterol measurementOrdered By: Elizabeth Alvarado on 05-07-2022 Cholesterol in HDL [Mass/Vol] 58 mg/dL 35-85 [facility] Comment on above: HDL CHOL ATP-III CLA SSIFICATION Cardiovascular RiskHDL > or equal to 60 mg/dL LOWHDL < 40 mg/dL HIGH Serum or plasma total choles terol/high density lipoprotein (HDL) cholesterol mass ratOrdered By: Elizabeth Alvarado on 05-07-2022 Cholesterol.total/Choles terol in HDL [Mass ratio] 3.1 {ratio} <5.0 [facility] Sodium [Moles/volume] in Ser um or PlasmaOrdered By: Elizabeth Alvarado on 05-07-2022 Sodium [Moles/Vol] 135 mmol/L 136-146 [facility] TSH DL <= 0.005 mIU/L QnOrde red By: Elizabeth Alvarado on 05-07-2022 TSH Qn 4.21 m[IU]/L 0.45-5.33 [facility] Triglyceride [Mass/volume] i n Serum or PlasmaOrdered By: Elizabeth Alvarado on 05-07-2022 Triglyceride [Mass/Vol] 103 mg/dL 35-149 [facility] Comment on above: TRIG ATP III CLASSIF ICATIONTRIG less than 150 mg/dL NormalTRIG 150-199 mg/dL Borderline highTRIG 200-500 mg/dL High TRIG greater than 500 mg/dL Very highStandard traceable to the Center for Disease Conrtrol and Prevention (CDC) test method. Urea nitrogen [Mass/volume] in Serum or PlasmaOrdered By: Elizabeth Alvarado on 05-07-2022 Urea nitrogen [Mass/Vol] 14 mg/dL 9-23 [facility] WBC Auto (Bld) [#/Vol]Ordere d By: Elizabeth Alvarado on 05-07-2022 WBC (Bld) [#/Vol] 7.9 10*3/uL 3.8-11.6 [facility] Basophils Auto (Bld) [#/Vol] Ordered By: Tyler Villeda on 04-13-2022 Basophils (Bld) [#/Vol] 0.1 10*3/uL 0.0-0.2 [facility] Basophils/100 WBC Auto (Bld) Ordered By: Tyler Villeda on 04-13-2022 Basophils/100 WBC (Bld) 0.6 % . [facility] C reactive protein [Mass/vol ume] in Serum or PlasmaOrdered By: Tyler Villeda on 04-13-2022 CRP [Mass/Vol] 2.1 mg/dL 0.0-1.0 [facility] Eosinophils Auto (Bld) [#/Vo l]Ordered By: Tyler Villeda on 04-13-2022 Eosinophils (Bld) [#/Vol] 0.2 10*3/uL 0.0-0.45 [facility] Eosinophils/100 WBC Auto (Bl d)Ordered By: Tyler Villeda on 04-13-2022 Eosinophils/100 WBC (Bld) 2.0 % . [facility] Erythrocyte distribution wid th Auto (RBC) [Ratio]Ordered By: Tyler Villeda on 04-13-2022 Erythrocyte distribution width (RBC) [Ratio] 17.6 % 11.9-15.3 [facility] Erythrocyte sedimentation ra te by Photometric methodOrdered By: Tyler Villeda on 04-13-2022 ESR Photometric method (Bld) [Velocity] 54 mm/hr 0-29 [facility] Hematocrit Auto (Bld) [Volum e fraction]Ordered By: Tyler Villeda on 04-13-2022 Hematocrit (Bld) [Volume fraction] 44.4 % 34.0-46.4 [facility] Hemoglobin [Mass/volume] in BloodOrdered By: Tyler Villeda on 04-13-2022 Hemoglobin (Bld) [Mass/Vol] 14.3 g/dL 11.8-15.4 [facility] Leukocytes [#/volume] correc silverio for nucleated erythrocytes in Blood by Automated counOrdered By: Tyler Villeda on 04-13-2022 WBC corrected for nucl RBC Auto (Bld) [#/Vol] 8.6 10*3/uL 3.8-11.6 [facility] Lymphocytes Auto (Bld) [#/Vo l]Ordered By: Tyler Villeda on 04-13-2022 Lymphocytes (Bld) [#/Vol] 2.9 10*3/uL 1.00-4.8 [facility] Lymphocytes/100 WBC Auto (Bl d)Ordered By: Tyler Villeda on 04-13-2022 Lymphocytes/100 WBC (Bld) 33.6 % . [facility] MCH Auto (RBC) [Entitic mass ]Ordered By: Tyler Villeda on 04-13-2022 MCH (RBC) [Entitic mass] 24.9 pg 24.7-34.3 [facility] MCHC Auto (RBC) [Mass/Vol]Or dered By: Tyler Villeda on 04-13-2022 MCHC (RBC) [Mass/Vol] 32.2 g/dL 32.0-35.0 [facility] MCV Auto (RBC) [Entitic vol] Ordered By: Tyler Villeda on 04-13-2022 MCV (RBC) [Entitic vol] 77.4 fL 80-100 [facility] Monocytes Auto (Bld) [#/Vol] Ordered By: Tyler Villeda on 04-13-2022 Monocytes (Bld) [#/Vol] 0.9 10*3/uL 0.0-0.8 [facility] Monocytes/100 WBC Auto (Bld) Ordered By: Tyler Villeda on 04-13-2022 Monocytes/100 WBC (Bld) 10.0 % . [facility] Neutrophils Auto (Bld) [#/Vo l]Ordered By: Tyler Villeda on 04-13-2022 Neutrophils (Bld) [#/Vol] 4.6 10*3/uL 1.8-7.7 [facility] Neutrophils/100 WBC Auto (Bl d)Ordered By: Tyler Villeda on 04-13-2022 Neutrophils/100 WBC (Bld) 53.8 % . [facility] Nucleated erythrocytes [Pres ence] in Blood by Automated countOrdered By: Tyler Villeda on 04-13-2022 Nucleated RBC Auto Ql (Bld) 0.1 /100{WBC} 0-0.5 [facility] Platelet mean volume Auto (B ld) [Entitic vol]Ordered By: Tyler Villeda on 04-13-2022 Platelet mean volume (Bld) [Entitic vol] 9.1 fL 6.3-10.7 [facility] Platelets Auto (Bld) [#/Vol] Ordered By: Tyler Villeda on 04-13-2022 Platelets (Bld) [#/Vol] 296 10*3/uL 150-450 [facility] RBC Auto (Bld) [#/Vol]Ordere d By: Tyler Villeda on 04-13-2022 RBC (Bld) [#/Vol] 5.73 10*6/uL 3.60-5.00 [facility] WBC Auto (Bld) [#/Vol]Ordere d By: Tyler Villeda on 04-13-2022 WBC (Bld) [#/Vol] 8.6 10*3/uL 3.8-11.6 [facility] Serum or plasma follitropin measurement (units/volume)Ordered By: Elizabeth Alvarado on 12-03-2021 Follitropin Qn 18.3 m[IU]/mL [facility] Comment on above: FEMALE NORMALS (JUDIE ENOPAUSE) MID-FOLLICULAR PHASE: 3.9-8.8 mIU/mL MID-CYCLE PEAK: 4.5-22.5 mIU/mL MID-LUTEAL PHASE: 1.8-5.1 mIU/mL FEMALE NORMALS (POSTMENOPAUSE): 16.7-113.6 mIU/mL MALE NORMALS: 1.3-19.3 mIU/mL TSH DL <= 0.005 mIU/L QnOrde red By: Elizabeth Alvarado on 12-03-2021 TSH Qn 4.23 m[IU]/L 0.45-5.33 [facility] Total estrogen measurementOr dered By: Elizabeth Alvarado on 12-03-2021 Estrogen [Mass/Vol] 83 pg/mL . [facility] Comment on above: Prepubertal < 40 Female Cycle: 1-10 Days 16 - 328 11-20 Days 34 - 501 21-30 Days 48 - 350 Post-Menopausal 40 - 244 Performed at: - [facility] [id number] Supervisor [employer]: Virgie Isaac MD, Phone: [phone] Coding Summary.on 01-26-2019 Coding Summary. 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 However, the narrative phrase printed from the coding software may appear abbreviated, or result in slightly different terminology. Revised Coded By: Mary Bernard Revised Date Saved: 01/26/2019 11:32 am [facility] Inpatient Patient Summaryon 01-24-2019 Inpatient Patient Summary [facility] Clinical Discharge Instructions PERSON INFORMATION Name: GEETA SHELTON PHYSICIANS Admitting Physician: Thuan Travis DPM Attending Physician: Thaun Travis DPM PCP: Nichole Caballero Discharge Diagnosis: Comment: PATIENT EDUCATION INFORMATION Instructions: Post Op Patient Instructions - FT (Custom); Foot Cryocuff Patient Instructions - LUIS (Custom); Thaddeus - Post Operative Instructions (Revised 12/20/13) (Custom) ([id number]) Medication Leaflets: Follow up: MEDICATION LIST Comment: Normal [facility] [place] 01-24-2019 Anion gap [Moles/Vol] 14 mmol/L Normal 6-16 [facility] Comment on above: Performed By: #### 2 [id number], [id number], [id number], [id number] #### [facility] [address] [place] [address] Chloride [Moles/Vol] 107 mmol/L Normal 101-111 [facility] Comment on above: Performed By: #### 2 [id number], [id number], [id number], [id number], [id number], [id number] #### [facility] [address] [place] [address] CO2 [Moles/Vol] 23 mmol/L Normal 21-31 [facility] Comment on above: Performed By: #### 2 [id number], [id number], [id number], [id number], [id number], [id number] #### [facility] [address] [place] [address] Potassium [Moles/Vol] 4.9 mmol/L Normal 3.5-5.3 [facility] Comment on above: Performed By: #### 2 [id number], [id number], [id number], [id number], [id number], [id number] #### [facility] [address] [place] [address] Sodium [Moles/Vol] 139 mmol/L Normal 135-145 [facility] Comment on above: Performed By: #### 2 [id number], [id number], [id number], [id number], [id number], [id number] #### [facility] [address] [place] [address] Main OR Intraoperative Recor don 01-24-2019 Main OR Intraoperative Record IntraOp Document Type FT Summary Primary Physician: Thuan Travis DPM Finalized Date/Time: 01/24/19 11:33:24 Pt. Name: GEETA SHELTON/Sex: 1970 Female Med Rec #: [id number] Physician: Thuan Travis DPM Financial #: [id number] Pt. Type: A Room/Bed: Admit/Disch: 01/24/19 07:58:48 - Institution: Case Times FT Entry 1 Patient Times In Room 01/24/19 08:48:00 Out Room 01/24/19 09:26:00 Procedure Times Start 01/24/19 09:05:00 Stop 01/24/19 09:21:00 Anesthesia Times Start 01/24/19 08:48:00 Stop 01/24/19 09:26:00 Last Modified By: Maye Silverio CST 01/24/19 09:26:16 General Comments: TENEX CUTTING TIME: 01:23 - BIGG RN 01/24/19 Chart opened to review and send charges Suresh Silverio CST Case Attendance FT Entry 1 Entry 2 Entry 3 Case Attendee Thaddeus CAA, Bhavna Travis DPM, Thuan Stanley RN, CNOR, Cheryl Role Performed Anesthesiologist Surgeon - Primary [employer] Operator Time In 01/24/19 08:48:00 01/24/19 09:00:00 01/24/19 08:48:00 Time Out 01/24/19 09:26:00 01/24/19 09:22:00 01/24/19 09:26:00 Procedure PLANTAR/ACHILLES PLANTAR/ACHILLES PLANTAR/ACHILLES FASCIOTOMY TENEX(Right) FASCIOTOMY TENEX(Right) FASCIOTOMY TENEX(Right) Comments DR ALMANZAR SUPERVISING Last Modified By: Jani RN, Kallie Gunter RN, Kallie Gunter RN, Kallie Ewing 01/24/19 09:26:18 01/24/19 09:26:18 01/24/19 09:26:18 Entry 4 Entry 5 Entry 6 Case Attendee Jani AGUILAR, Kallie Yuen RN, Zuly Duarte CST, Prashant Panda Role Performed Key Entry Operator - Primary Key Entry Operator - Other Scrub - Primary Time In 01/24/19 08:48:00 01/24/19 08:48:00 01/24/19 08:48:00 Time Out 01/24/19 09:26:00 01/24/19 09:26:00 01/24/19 09:26:00 Procedure PLANTAR/ACHILLES PLANTAR/ACHILLES PLANTAR/ACHILLES FASCIOTOMY TENEX(Right) FASCIOTOMY TENEX(Right) FASCIOTOMY TENEX(Right) Comments ORIENTATION Last Modified By: Jani RN, Kallie A Kallie Gunter RN, RN, Emily A 01/24/19 09:26:18 01/24/19 09:26:18 01/24/19 09:26:18 Perioperative Protocols FT Pre-Care Text: Implements protective measures prior to operative or invasive procedure, confirms identity before the operative or invasive procedure, verifies operative procedure, surgical site, and laterality Entry 1 Procedure(s) PLANTAR/ACHILLES Patient Identity Birthday, ID Band FASCIOTOMY TENEX(Right) Verified (select at Check, Patient least 2): Participation Consents / H and P Anesthesia Consent, Operative Site Present Verified HandP, Surgery/Procedure Marking Verified Consent Surgical Site Yes Laterality Verified Yes Verified Procedure Verified Yes Correct Patient Yes Position Verified Availability Equipment, Medication Prep Dry Yes Verified (If Applicable) PreOp Antibiotic Yes Time Out Bhavna Vargas, Given Participants Thuan Travis DPM, Stocker RN, CNOR, Jani Luna RN, Kallie Ewing, Alpa RN, Gerald Veliz HORSES OR MULES TEAMSTER, Prashant M Time Out Complete 01/24/19 08:59:00 Outcomes Met? Yes Last Modified By: Kallie Gunter RN 01/24/19 09:04:54 Post-Care Text: The patient is free from signs and symptoms of injury caused by extraneous objects Allergy Information FT Pre-Care Text: Verifies allergies Entry 1 Allergies Reviewed? Yes Allergies Reviewed Self/Patient With Outcomes Met? Yes Last Modified By: Kallie Gunter RN 01/24/19 09:07:24 Post-Care Text: The patient received appropriate medication(s) safely administered during the perioperative period Surgical Procedures FT Entry 1 Procedure Description Procedure PLANTAR/ACHILLES Modifiers Right FASCIOTOMY TENEX Surgeon Description RIGHT PERCUTANEOUS ACHILLES TENOTOMY WITH TENEX Primary Procedure Yes Primary Surgeon Thuan Travis DPM Start 01/24/19 09:05:00 Stop 01/24/19 09:21:00 Anesthesia Type General Surgical Service Podiatry Wound Class 1 - Clean Last Modified By: Kallie Gunter RN 01/24/19 09:26:19 General Case Data FT Pre-Care Text: Classifies surgical wound, implements aseptic technique, initiates traffic control Entry 1 Case Information OR OR 4 FT Case Level Level 2 Wound Class 1 - Clean Specialty Podiatry ASA Class 3 Preop Diagnosis RIGHT ACHILLES Postop Same As Preop Yes TENDONITIS Postop Diagnosis RIGHT ACHILLES Outcomes Met? Yes TENDONITIS Last Modified By: Kallie Gunter RN 01/24/19 09:13:46 Post-Care Text: The patient is free from signs and symptoms of infection Skin Assessment (Pre Procedure) FT Pre-Care Text: Implements protective measures to prevent skin/ tissue injury due to thermal or mechanical sources Evaluates for signs and symptoms of physical injury to skin and tissue Entry 1 Skin Integrity Other/See Comments Skin Abnormality Yes Abnormality Location RIGHT HEEL Abnormality Type EXTREMELY DRY CRACKED SKIN Outcomes Met? Yes Last Modified By: Kallie Gunter RN 01/24/19 09:09:28 Post-Care Text: The patient is free from signs and symptoms of injury caused by extraneous objects Patient Positioning FT Pre-Care Text: Identifies physical alterations that require additional precautions for procedure-specific positioning, verifies presence of prosthetics or corrective devices, positions the patient, evaluates the patient for signs and symptoms of injury as a result of positioning Entry 1 Procedure PLANTAR/ACHILLES Additional BLACK FOAM WEDGE UNDER FASCIOTOMY TENEX(Right) Information RIGHT KNEE/LOWER LEG Body Position Supine Feet Uncrossed? Yes Left Arm Position Extended on Padded Arm Right Arm Position Extended on Padded Arm Board Board Left Leg Position Extended Right Leg Position Extended Positioning Device Safety Strap, Pillow Press Points Checked Yes Under Head Large, Other/See Comments By Kallie Gunter RN, Brown Outcomes Met? Yes DARYA, Alpa Graves RN, Zuly Joyce Last Modified By: Kallie Gunter RN 01/24/19 09:10:05 Post-Care Text: The patient is free from signs and symptoms of injury related to positioning Patient Care Devices FT Pre-Care Text: Implements protective measures to prevent skin/ tissue injury due to thermal or mechanical sources Entry 1 Entry 2 Entry 3 Equipment Type MISTRAL FORCED AIR MONITOR CHARGE SURGERY SONOSITE ULTRASOUND WARMING SYSTEM UNIT[F] [F] UNIT[F] Equipment Number [id number] Equipment Setting Outcomes Met? Yes Yes Yes Last Modified By: Kallie Gunter RN, RN, Emily A Coy RN, Emily A 01/24/19 08:45:55 01/24/19 08:45:55 01/24/19 08:45:55 Entry 4 Equipment Type TENEX UNIT [F] Equipment Number Equipment Setting Outcomes Met? Yes Last Modified By: Kallie Gunter RN 01/24/19 08:45:55 Post-Care Text: The patient is free from signs and symptoms of injury caused by extraneous objects Transport To OR FT Pre-Care Text: Transports according to individual needs. Evaluates for signs and symptoms of skin and tissue injury as a result of transfer or transport Entry 1 Via Cart By Kallie Gunter RN Safety Precautions Side Rails Up Outcomes Met? Yes Last Modified By: Kallie Gunter RN 01/24/19 09:10:10 Post-Care Text: The patient is free from signs and symptoms of injury related to transfer/transport Counts Verification FT Pre-Care Text: Performs required counts Entry 1 Entry 2 Procedure(s) PLANTAR/ACHILLES PLANTAR/ACHILLES FASCIOTOMY TENEX(Right) FASCIOTOMY TENEX(Right) Type Initial Final Items Sponges, Sharps Sponges, Sharps Status Correct Correct Time By Lizeth AGUILAR, CNOR, Alpa AGUILAR, Zuly Luna, Gerald QUIROZ, R, Gerald QUIROZ, Prashant Panda Outcomes Met? Yes Yes Last Modified By: Kallie Gunter RN, RN, Emily A 01/24/19 09:10:25 01/24/19 09:18:26 Post-Care Text: The patient is free from signs and symptoms of injury caused by extraneous objects Skin Prep FT Pre-Care Text: Performs skin preparations Entry 1 Procedure PLANTAR/ACHILLES Prep Area ENTIRE RIGHT FOOT AND FASCIOTOMY TENEX(Right) LEG TO KNEE Prep Agents Chloraprep/Dry Prior to Start Dry Time 01/24/19 08:59:00 Draping Stop Dry Time 01/24/19 09:02:00 Hair Removal Methods Not Indicated By Zuly Yuen RN Outcomes Met? Yes Last Modified By: Kallie Gunter RN 01/24/19 09:11:07 Post-Care Text: The patient is free from signs and symptoms of infection Departure From OR FT Pre-Care Text: Transports according to individual needs. Evaluates for signs and symptoms of skin and tissue injury as a result of transfer or transport. Entry 1 Via Cart Safety Precautions Side Rails Up PostOp Destination PACU Transported By Zuly Yuen RN Patient Status Stable Skin. Condition Other/See Comments Description RIGHT ANKLE INCISION, OTHER SKIN UNCHANGED FROM PREVIOUSLY Airway Maintenance Oxygen in Use? Yes Airway Device Simple Mask Flow Rate 8 L/min Outcomes Met? Yes Last Modified By: Kallie Gunter RN 01/24/19 09:24:21 Post-Care Text: The patient is free from signs and symptoms of injury related to transfer/transport General Comments: REPORT GIVEN TO COMB WINDERRN. Cy PRIDE RN Dressing/Packing FT Pre-Care Text: Administers care to wound sites Entry 1 Type Dressing Site and Details 4x4, kerlix and COBAN, paper tape TO RIGHT ANKLE Outcomes Met? Yes Last Modified By: Kallie Gunter RN 01/24/19 09:21:50 Post-Care Text: The patient is free from signs and symptoms of infection Medication Administration FT Pre-Care Text: Verifies allergies, administers prescribed medications and solutions, administers prescribed antibiotic therapy and immunizing agents as ordered, evaluates response to medications Administers prescribed medications and solutions Entry 1 Route of Admin Field Expiration Date Yes Verified Outcomes Met? Yes Last Modified By: Kallie Gunter RN 01/24/19 08:46:24 Post-Care Text: The patient received appropriate medication(s) safely administered during the perioperative period For [facility] please see scanned medication reconcilliation form for medications used at the field during the procedure. Temperature Control Entry 1 Temperature Control BLANKET MISTRAL AIR Quantity 1 Aid TORSO [MS0527-ON][F] Fluid/[place] [facility] Mistral warming system Setting HIGH/43 Body Site Upper anterior torso Last Modified By: Kallie Gunter RN 01/24/19 08:46:43 Case Comments Finalized By: Maye Silverio CST Document Signatures Signed By: Kallie Gunter RN 01/24/19 09:26 Maye Silverio CST 01/24/19 11:33 Normal [facility] Main OR PACU I Recordon Main OR PACU I Record PACU Phase I Docum ent Type FT Summary Primary Physician: Thuan Travis DPM Finalized Date/Time: 01/24/19 10:08:45 Pt. Name: GEETA SHELTON/Sex: 1970 Female Med Rec #: [id number] Physician: Thuan Travis DPM Financial #: [id number] Pt. Type: A Room/Bed: [facility] Admit/Disch: 01/24/19 07:58:48 - Institution: Case Times PACU I FT Pre-Care Text: Identifies barriers to communication and implements measures to provide psychological support Develops individualized plan of care, and ensures continuity of care Maintains patient's dignity and privacy, and maintains patient confidentiality Identifies and reports philosophical, cultural, and spiritual beliefs and values Identifies individual values and wishes concerning care Implements aseptic technique, and administers prescribed antibiotic therapy and immunizing agents as ordered Evaluates postoperative tissue perfusion Implements thermoregulation measures, and monitors body temperature Evaluates postoperative respiratory status Evaluates postoperative cardiac status Evaluates postoperative neurological status Assesses pain control, collaborated in initiating patient-controlled analgesia and implements alternative methods of pain control Verifies allergies, administers prescribed medications and solutions, evaluates response to medications Entry 1 In PACU I 01/24/19 09:27:00 Discharge from PACU 01/24/19 10:00:00 I Outcomes Met? Yes Last Modified By: Swathi Carr RN 01/24/19 10:08:26 Post-Care Text: The patient demonstrates knowledge of the expected response to the operative or invasive procedure The patient's care is consistent with the individualized perioperative plan of care The patient's right to privacy is maintained The patient's value system, lifestyle, ethnicity, and culture are considered, respected, and incorporated into the perioperative plan of care The patient participates in decisions affecting his or her perioperative plan of care The patient is free from signs and symptoms of infection The patient has wound/tissue perfusion consistent with or improved from baseline levels established preoperatively The patient is at or returning to normothermia at the conclusion of the immediate postoperative period The patient's respiratory function is consistent with or improved from baseline levels established preoperatively The patient's cardiovascular status is consistent with or improved from baseline levels established preoperatively The patient's cardiovascular status is consistent with or improved from baseline levels established preoperatively The patient demonstrates and/or reports adequate pain control throughout the perioperative period The patient received appropriate medication(s), safely administered during the perioperative period Acuity Level PACU I FT Entry 1 Start Time 01/24/19 09:27:00 Stop Time 01/24/19 10:00:00 Acuity Level Acuity Level I Last Modified By: Swathi Carr RN 01/24/19 10:08:39 Finalized By: Swathi Carr RN Document Signatures Signed By: Swathi Carr RN 01/24/19 10:08 Normal [facility] Main OR PACU II Recordon Main OR PACU II Record PACU Phase II Doc ument Type FT Summary Primary Physician: Thuan Travis DPM Finalized Date/Time: 01/24/19 13:09:21 Pt. Name: GEETA SHELTON/Sex: 1970 Female Med Rec #: [id number] Physician: Thuan Travis DPM Financial #: [id number] Pt. Type: A Room/Bed: Admit/Disch: 01/24/19 07:58:48 - Institution: Case Times PACU II FT Pre-Care Text: Identifies barriers to communication and implements measures to provide psychological support and determines knowledge level Develops individualized plan of care, and ensures continuity of care Maintains patient's dignity and privacy, and maintains patient confidentiality Identifies and reports philosophical, cultural, and spiritual beliefs and values Identifies individual values and wishes concerning care administers prescribed antibiotic therapy and immunizing agents as ordered, Evaluates postoperative tissue perfusion Implements thermoregulation measures, and monitors body temperature Evaluates postoperative respiratory status Evaluates postoperative cardiac status Evaluates postoperative neurological status Assesses pain control, collaborated in initiating patient-controlled analgesia and implements alternative methods of pain control Verifies allergies, administers prescribed medications and solutions, evaluates response to medications Entry 1 In PACU II 01/24/19 10:05:00 Discharge from PACU 01/24/19 11:30:00 II Outcomes Met? Yes Last Modified By: Keeley Putnam LPN 01/24/19 13:09:14 Post-Care Text: The patient demonstrates knowledge of the expected response to the operative or invasive procedure The patient's care is consistent with the individualized perioperative plan of care The patient's right to privacy is maintained The patient's value system, lifestyle, ethnicity, and culture are considered, respected, and incorporated into the perioperative plan of care The patient participates in decisions affecting his or her perioperative plan of care. The patient is free from signs and symptoms of infection The patient has wound/tissue perfusion consistent with or improved from baseline levels established preoperatively The patient is at or returning to normothermia at the conclusion of the immediate postoperative period The patient's respiratory function is consistent with or improved from baseline levels established preoperatively The patient's cardiovascular status is consistent with or improved from baseline levels established preoperatively The patient's neurological status is consistent with or improved from baseline levels established preoperatively The patient demonstrates and/or reports adequate pain control throughout the perioperative period The patient received appropriate medication(s), safely administered during the perioperative period Finalized By: Keeley Putnam LPN Document Signatures Signed By: Keeley Putnam LPN 01/24/19 13:09 Normal [facility] Main OR Preoperative Recordo n 01-24-2019 Main OR Preoperative Record PreOp Document Type FT Summary Primary Physician: Thuan Travis DPM Finalized Date/Time: 01/24/19 09:12:07 Pt. Name: GEETA SHELTON/Sex: 1970 Female Med Rec #: [id number] Physician: Thuan Travis DPM Financial #: [id number] Pt. Type: A Room/Bed: [facility] Admit/Disch: 01/24/19 07:58:48 - Institution: Case Times PreOp FT Pre-Care Text: Verifies consent for planned procedure, identifies individual values and wishes concerning care, includes family members in perioperative teaching Entry 1 Patient Times. In Pre Surgery 01/24/19 08:05:00 Out Pre Surgery 01/24/19 08:46:00 Outcomes Met? 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 After general anesthesia, two small stab incisions were made, one medially and one laterally, at the posterior Achilles/calcaneal junction on the medial and lateral aspects of the right calcaneus. Incisions were deepened down to the level of the Achilles tendon utilizing small mosquito hemostats medially and laterally. At this time the Tenex probe was introduced under ultrasonic guidance. Prior to application of this an ultrasound image was taken of the posterior right calcaneus noted hypoechoic signal and thickening of the Achilles tendon band. This was saved and sent for radiology. Next the probe was introduced and, utilizing guidance of the ultrasound via ultrasound guidance, the Tenex probe was activated at the hypoechoic signal areas of the posterior Achilles tendon medially and laterally, and this was done in a pistoning type technique. Final images were taken post-procedure. Next the wounds was closed with copious amounts of sterile Normal Saline. The skin was then reapproximated and coapted utilizing 4-0 Nylon in a simple interrupted suture technique. Following completion of the procedure a sterile compressive dressing consisting of 4 x 4's, Kerlix and Coban was applied. The patient was transferred to the Post-Anesthesia Care Unit with vital signs stable and vascular status intact in digits one through five of the right foot. Following a period of postoperative monitoring the patient will be discharged home with the following oral and written postoperative instructions: 1. Keep dressing dry and intact. 2. The patient to remain partial weight bearing with pneumatic walking boot. 3. The patient was given Dr. Travis's postoperative care sheet including office and hospital number if any problems should arise. Otherwise she is to return to the Clinic in one week for her first postoperative visit. Sania Pantoja Dictated: 01/24/2019 #[id number] Typed: 01/24/2019 #[id number] cc: Thuan Travis D.P.M. [facility] Comment on above: Result Comment: Elec tronically Signed By: Thuan Travis DPM\.br\Date and Time Signed: 01/24/19 10:24 EDT Patient Education - Texton 1 Patient Education - Text (Inserted Image . Unable to display) [place], [place] Thuan Travis DPM, FACMARY ALICE POST OPERATIVE INSTRUCTIONS Keep bandage clean and dry and DO NOT REMOVE Keep foot elevated on white foam pillow Apply cryocuff to top of ankle, one hour on one hour off, until first office visit Partial weight bearing on operative foot with walking boot Take pain medications as directed Do not be alarmed if you notice slight bleeding on the bandage, this is normal Resume regular diet. Call the office if you develop: persistent bleeding temperature above 100 degrees persistent vomiting calf pain or shortness of breath redness or pus at operative site Call the office tomorrow for 1st post-operative dressing change appointment. If you have any problems or questions, feel free to call the doctor at: [phone] or [phone] Travis paged. ___ Patient signature Date ___ Dr. Anand Sauer DPM, FACFAS Date Revised: 06-02 [facility] Progress Note-Physicianon Progress Note-Physician Patient: GEETA SHELTON Age: 48 years Sex: Female : 1970 Associated Diagnoses: None Author: Thuan Travis DPM Postoperative Information Procedure: right percutaneous achilles tenotomy with tenex under general anesthesia, US guided Date/ Time: 01/24/19 09:26:00 Preoperative Diagnosis: contracture and ankle right with achilles tendonitis. Postoperative Diagnosis: sanjana. Performed by: Thuan Travis DPM Estimated Blood Loss: 1 ml. Complications: None. Anesthesia type: General. [facility] Comment on above: Result Comment: Elec tronically Signed By: Thuan Travis DPM\Date and Time Signed: 01/24/19 09:27 EDT Coding Summary.on 01-12-2019 Coding Summary. CODING DATE: 019 FINAL [facility] STATUS: Home (Routine DC) PAYOR: Medicare ADMIT DX: REASON FOR VISIT DX: Z01.818 Encounter for other preprocedural examination FINAL DX: PRINCIPAL: Z01.818 Encounter for other preprocedural examination SECONDARY: PROCEDURES DOCTOR NAME DATE NOTE: The code number assigned matches the documented diagnosis and / or procedure in the patient's chart. However, the narrative phrase printed from the coding software may appear abbreviated, or result in slightly different terminology. Coded By: China Olivarez CphT Date Saved: 01/12/2019 11:10 am Normal [facility] BUNon 01-11-2019 Urea nitrogen [Mass/Vol] 29 mg/dL High 5-21 [facility] Comment on above: Performed By: #### 2 630929, 5906990, 9608928, 37296028, 8765718, 4034830 #### [facility] Laboratory [address] [place] [address] CBC w/Indiceson 01-11-2019 Erythrocyte distribution width (RBC) [Ratio] 16.1 % High 10.9-14.2 [facility] Comment on above: Performed By: #### 1 [id number], 3317847, 8367744, 9248838, 7617002 #### [facility] [address] [place] [address] Hematocrit (Bld) [Volume fraction] 42.1 % Normal 34.0-46.0 [facility] Comment on above: Performed By: #### 1 2012608, 5384823, 6982967, 8242816, 7232514 #### [facility] [address] [place] [address] Hemoglobin (Bld) [Mass/Vol] 13.8 g/dL Normal 12.0-16.0 [facility] Comment on above: Performed By: #### 1 1305503, 0419215, 6489197, 5479447, 0510593 #### [facility] [address] [place] [address] MCH (RBC) [Entitic mass] 25.8 pg Low 27.0-34.0 [facility] Comment on above: Performed By: #### 1 8172920, 6383726, 3372993, 7315360, 0890661 #### [facility] [address] [place] [address] MCHC (RBC) [Mass/Vol] 32.8 g/dL Low 33.3-35.7 [facility] Comment on above: Performed By: #### 1 7766074, 1238240, 4190624, 6820207, 0992702 #### [facility] [address] [place] [address] MCV (RBC) [Entitic vol] 78.5 fL Low 80.0-100.0 [facility] Comment on above: Performed By: #### 1 8680264, 5100086, 8286835, 4013916, 9574836 #### [facility] [address] [place] [address] Platelet mean volume (Bld) [Entitic vol] 9.9 fL Normal 6.4-10.8 [facility] Comment on above: Performed By: #### 1 3186258, 9906684, 4500459, 3485454, 3028199 #### [facility] [address] [place] [address] Platelets (Bld) [#/Vol] 283.0 E9/L Normal 150. 0-500. 0 [facility] Comment on above: Performed By: #### 1 2865689, 0496365, 3214628, 2620486, 9026679 #### [facility] [address] [place] [address] RBC (Bld) [#/Vol] 5.4 E12/L Normal 4.3-5.9 [facility] Comment on above: Performed By: #### 1 5975642, 4459330, 2463564, 2248539, 9455979 #### [facility] [address] [place] [address] WBC corrected for nucl RBC Auto (Bld) [#/Vol] 8.6 E9/L Normal 4.0-11.0 [facility] Comment on above: Performed By: #### 1 6648025, 7296831, 0002165, 1377226, 4458725 #### [facility] [address] [place] [address] Creatinineon 01-11-2019 Creatinine [Mass/Vol] 1.0 mg/dL Normal 0.5-1.3 [facility] Comment on above: Performed By: #### 2 138878, 6941380, 6836011, 85943623, 9204924, 0374927 #### [facility] [address] [place] [address] Glucoseon 01-11-2019 Glucose [Mass/Vol] 95 mg/dL Normal 55-199 [facility] Comment on above: Performed By: #### 1 7151742, 3118407, 8418399, 7017007, 6116066 #### [facility] [address] [place] [address] eGFRon 01-11-2019 GFR/1.73 sq M predicted among blacks MDRD (S/P/Bld) [Vol rate/Area] mL/min/{1.73_m2} Normal >=59 [facility] Comment on above: Order Comment: Order added by Discern Expert. Result Comment: eGFR is race adjusted. AA=. Performed By: #### 2 454510, 6332964, 3036628, 14374692, 1054611, 9256583 #### [facility] [address] [place] [address] GFR/1.73 sq M predicted among non-blacks MDRD (S/P/Bld) [Vol rate/Area] 59 mL/min/1.73 m2 Normal >=59 [facility] Comment on above: Order Comment: Order added by Discern Expert. Result Comment: Atm Mechanic stefanie kidney disease could be indicated at eGFR's of less than 60 mL/min/1.73m2. Kidney failure is indicated at less than 15 mL/min/1.73m2. Performed By: #### 2 842939, 1545745, 2411391, 82812444, 6419252, 9220771 #### [facility] [address] [place] [address] Coding Summary.on 12-15-2018 Coding Summary. CODING DATE: 019 FINAL [facility] STATUS: Home (Routine DC) PAYOR: Medicare APC DESCRIPTION 5521 Level 1 Imaging without Contrast ADMIT DX: REASON FOR VISIT DX: Z01.818 Encounter for other preprocedural examination FINAL DX: PRINCIPAL: Z01.818 Encounter for other preprocedural examination SECONDARY: PYMT PROC APC STAT DESCRIPTION DOCTOR NAME DATE NOTE: The code number assigned matches the documented diagnosis and / or procedure in the patient's chart. However, the narrative phrase printed from the coding software may appear abbreviated, or result in slightly different terminology. Coded By: China Olivarez CphT Date Saved: 12/15/2018 01:36 pm Normal [facility] BUNon 12-14-2018 Urea nitrogen [Mass/Vol] 19 mg/dL Normal 5-21 [facility] Comment on above: Performed By: #### 2 040797, 0214803, 2351479, 62946249, 7754829, 4625415 #### [facility] [address] [place] [address] CBC w/Indiceson 12-14-2018 Erythrocyte distribution width (RBC) [Ratio] 17.1 % High 10.9-14.2 [facility] Comment on above: Performed By: #### 2 367036, 9922435, 9493016, 43985443, 0143050, 9736052 #### [facility] [address] [place] [address] Hematocrit (Bld) [Volume fraction] 41.5 % Normal 34.0-46.0 [facility] Comment on above: Performed By: #### 2 712391, 7453913, 1914785, 32298239, 7668697, 8294355 #### [facility] [address] [place] [address] Hemoglobin (Bld) [Mass/Vol] 13.2 g/dL Normal 12.0-16.0 [facility] Comment on above: Performed By: #### 2 896634, 4095823, 4697022, 93652992, 9044824, 5035457 #### [facility] [address] [place] [address] MCH (RBC) [Entitic mass] 25.0 pg Low 27.0-34.0 [facility] Comment on above: Performed By: #### 2 052776, 5189901, 7985178, 76715088, 8214970, 3877940 #### [facility] [address] [place] [address] MCHC (RBC) [Mass/Vol] 31.7 g/dL Low 33.3-35.7 [facility] Comment on above: Performed By: #### 2 398106, 1251488, 1112204, 53077922, 1805445, 6206717 #### [facility] [address] [place] [address] MCV (RBC) [Entitic vol] 78.7 fL Low 80.0-100.0 [facility] Comment on above: Performed By: #### 2 365359, 1658253, 8739691, 74956901, 9660802, 5225055 #### [facility] [address] [place] [address] Platelet mean volume (Bld) [Entitic vol] 9.4 fL Normal 6.4-10.8 [facility] Comment on above: Performed By: #### 2 942256, 2443849, 5398542, 22130636, 9486603, 0875441 #### [facility] [address] [place] [address] Platelets (Bld) [#/Vol] 268.0 E9/L Normal 150. 0-500. 0 [facility] Comment on above: Performed By: #### 2 777724, 8826880, 8687323, 02934123, 5654713, 6821637 #### [facility] [address] [place] [address] RBC (Bld) [#/Vol] 5.3 E12/L Normal 4.3-5.9 [facility] Comment on above: Performed By: #### 2 461584, 3348236, 5654815, 37149709, 0680778, 8798597 #### [facility] [address] [place] [address] WBC corrected for nucl RBC Auto (Bld) [#/Vol] 10.6 E9/L Normal 4.0-11.0 [facility] Comment on above: Performed By: #### 2 140962, 4219067, 6557307, 08102885, 9448726, 9391459 #### [facility] [address] [place] [address] Creatinineon 12-14-2018 Creatinine [Mass/Vol] 0.7 mg/dL Normal 0.5-1.3 [facility] Comment on above: Performed By: #### 2 315294, 0835434, 8358963, 77000143, 9851106, 2713196 #### [facility] [address] [place] [address] Glucoseon 12-14-2018 Glucose [Mass/Vol] 138 mg/dL Normal 55-199 [facility] Comment on above: Performed By: #### 2 018380, 3488223, 7196658, 30904842, 6799200, 1676242 #### [facility] [address] [place] [address] Lyteson 12-14-2018 Anion gap [Moles/Vol] 17 mmol/L High 6-16 [facility] Comment on above: Performed By: #### 2 116727, 9244319, 4325782, 22891732, 9368059, 6216874 #### [facility] [address] [place] [address] Chloride [Moles/Vol] 95 mmol/L Low 101-111 [facility] Comment on above: Performed By: #### 2 183438, 9015668, 5309219, 74829068, 6783451, 0745505 #### [facility] [address] [place] [address] CO2 [Moles/Vol] 26 mmol/L Normal 21-31 [facility] Comment on above: Performed By: #### 2 799909, 7480948, 3701062, 66535879, 5368487, 4268104 #### [facility] [address] [place] [address] Potassium [Moles/Vol] 3.9 mmol/L Normal 3.5-5.3 [facility] Comment on above: Performed By: #### 2 474508, 3805674, 8109894, 32947712, 0141721, 7514523 #### [facility] [address] [place] [address] Sodium [Moles/Vol] 134 mmol/L Low 135-145 [facility] Comment on above: Performed By: #### 2 013906, 2609527, 4116532, 30414332, 0803610, 7194520 #### [facility] [address] [place] [address] XR Chest 2 Viewson 9 XR Chest 2 Views Exam Date/Time: 12/14/2018 15:25 EDT Reason for Exam: Pre Op Report IMPRESSION: NO ACUTE CARDIOPULMONARY ABNORMALITY. CLINICAL HISTORY: Preop for ankle surgery. COMPARISONS: None available. FINDINGS: 2 views were obtained. Normal cardiac silhouette. Lungs are clear without consolidation. No pleural effusion or pneumothorax. There are mild degenerative changes in spine. FINAL REPORT Dictated: 12/14/2018 3:50 pm Lyric Green MD Signed (Electronic Signature): 12/14/2018 3:50 pm Signed by: Lyric Green MD Transcribed by: MAGEN Technologist: KRISTYN Normal [facility] eGFRon 12-14-2018 GFR/1.73 sq M predicted among blacks MDRD (S/P/Bld) [Vol rate/Area] mL/min/{1.73_m2} Normal >=59 [facility] Comment on above: Order Comment: Order added by Discern Expert. Result Comment: eGFR is race adjusted. AA=. Performed By: #### 2 848846, 0114827, 2674973, 13724534, 5840622, 6386228 #### [facility] [address] [place] [address] GFR/1.73 sq M predicted among non-blacks MDRD (S/P/Bld) [Vol rate/Area] mL/min/{1.73_m2} Normal >=59 [facility] Comment on above: Order Comment: Order added by Discern Expert. Result Comment: Atm Mechanic stefanie kidney disease could be indicated at eGFR's of less than 60 mL/min/1.73m2. Kidney failure is indicated at less than 15 mL/min/1.73m2. Performed By: #### 2 601628, 5404007, 2263775, 61162889, 7717934, 3147810 #### [facility] [address] [place] [address] Vital Signs Date Time Vital Sign Value Performing Clinician Facility 09-30-2023 09:36-0400 Body height 165.1 cm PHYSICIAN NO [facility] 09-30-2023 09:36-0400 Body mass index (BMI) [Ratio] 46.2 kg/m2 PHYSICIAN NO [facility] 09-30-2023 09:36-0400 Body temperature 97.6 [degF] PHYSICIAN NO [facility] [place] 09-30-2023 09:36-0400 Body weight 126.09 kg PHYSICIAN NO [facility] 09-30-2023 09:36-0400 Diastolic blood pressure 85 mm[Hg] PHYSICIAN NO [facility] 09-30-2023 09:36-0400 Heart rate 87 /min PHYSICIAN NO [facility] 09-30-2023 09:36-0400 Respiratory rate 20 /min PHYSICIAN NO [facility] [place] 09-30-2023 09:36-0400 SaO2% (BldA) [Mass fraction] 98 % PHYSICIAN NO [facility] 09-30-2023 09:36-0400 Systolic blood pressure 139 mm[Hg] PHYSICIAN NO [facility] 03-02-2023 10:45-0500 Body height 165.1 cm Tyler Jean Other [employer] Other 03-02-2023 10:45-0500 Body mass index (BMI) [Ratio] 44.76 kg/m2 Tyler Jean Other [employer] Other 03-02-2023 10:45-0500 Body temperature 96.7 [degF] Tyler Jean Other [employer] Other 03-02-2023 10:45-0500 Body weight 122.02 kg Tyler Jean Other [employer] Other 03-02-2023 10:45-0500 Diastolic blood pressure 82 mm[Hg] Tyler Jean Other [employer] Other 03-02-2023 10:45-0500 Respiratory rate 18 /min Tyler Jean Other [employer] Other 03-02-2023 10:45-0500 SaO2% (BldA) [Mass fraction] 96 % Tyler Jean Other [employer] Other 03-02-2023 10:45-0500 Systolic blood pressure 136 mm[Hg] Tyler Jean Other [employer] Other 09-21-2022 09:11-0400 Body weight 128.72 kg RHEA Alvarado Work Phone: [facility] 09-21-2022 09:11-0400 Diastolic blood pressure 91 mm[Hg] RHEA Hornerholtz Work Phone: [facility] 09-21-2022 09:11-0400 Heart rate 88 /min BEATER TENDERNohelia Morinholpaula Work Phone: [facility] 09-21-2022 09:11-0400 Respiratory rate 20 /min BEATER TENDERNohelia Johnson Mymicheleholpaula Work Phone: [facility] 09-21-2022 09:11-0400 SaO2% (BldA) [Mass fraction] 96 % BEATER TENDERNohelia Morinholpaula Work Phone: [facility] 09-21-2022 09:11-0400 Systolic blood pressure 145 mm[Hg] RHEA Morinholpaula Work Phone: [facility] 08-16-2022 13:57-0400 Body temperature 98 [degF] RHEA Alvarado Work Phone: [facility] 08-16-2022 13:42-0400 Body height 165.1 cm RHEA Alvarado Work Phone: [facility] 07-03-2022 08:14-0500 Body temperature 97.9 [degF] Acosta Schafer MD Work Phone: [employer] 07-03-2022 08:14-0500 Diastolic blood pressure 70 mm[Hg] Acosta Schafer MD Work Phone: [employer] 07-03-2022 08:14-0500 Heart rate 83 /min Acosta Schafer MD Work Phone: [employer] 07-03-2022 08:14-0500 Respiratory rate 18 /min Acosta Schafer MD Work Phone: [employer] 07-03-2022 08:14-0500 SaO2% (BldA) [Mass fraction] 98 % Acosta Schafer MD Work Phone: [employer] 07-03-2022 08:14-0500 Systolic blood pressure 129 mm[Hg] Acosta Schafer MD Work Phone: [facility] [employer] 07-02-2022 09:45-0500 Body mass index (BMI) [Ratio] 50.66 kg/m2 Acosta Schafer MD Work Phone: [facility] [employer] 07-02-2022 09:45-0500 Body weight 129.73 kg Acosta Schafer MD Work Phone: [facility] [facility] [employer] 06-24-2022 11:20-0500 Body height 160 cm Mloz Rn [facility] [employer] 06-24-2022 11:20-0500 Body mass index (BMI) [Ratio] 50.79 kg/m2 [facility]loz Rn [facility] [employer] 06-24-2022 11:20-0500 Body temperature 97.9 [degF] Mloz Rn [facility] [employer] 06-24-2022 11:20-0500 Body weight 130.05 kg Mloz Rn [facility] [employer] 06-24-2022 11:20-0500 Diastolic blood pressure 87 mm[Hg] Mloz Rn [facility] [employer] 06-24-2022 11:20-0500 Heart rate 73 /min Mloz Rn [facility] [employer] 06-24-2022 11:20-0500 Respiratory rate 16 /min Mloz Rn [facility] [employer] 06-24-2022 11:20-0500 SaO2% (BldA) [Mass fraction] 98 % Mloz Rn [facility] [employer] 06-24-2022 11:20-0500 Systolic blood pressure 142 mm[Hg] Mloz Rn [facility] [employer] 05-18-2022 08:46-0500 Body height 165.1 cm Acosta Schafer MD Work Phone: [facility] Work Phone: 05-18-2022 08:46-0500 Body mass index (BMI) [Ratio] 45.93 kg/m2 Acosta Schafer MD Work Phone: [facility] Work Phone: 05-18-2022 08:46-0500 Body surface area Derived from formula 2.27 m2 Acosta Schafer MD Work Phone: [facility] Work Phone: 05-18-2022 08:46-0500 Body weight 125.19 kg Acosta Schafer MD Work Phone: [facility] Work Phone: Encounters Encounter Date Encounter Type Care Provider Facility Start: 09-30-2023 End: 09-30-2023 ambulatory PHYSICIAN NO [facility] Work Phone: Start: 09-30-2023 End: 09-30-2023 Patient encounter procedure PHYSICIAN NO [facility] Ambulatory Work Phone: Start: 09-30-2023 Registered Recurring PHYSICIAN AKASH [facility] Acute Work Phone: Start: 09-30-2023 ambulatory Krzysztof mitchell II Facility:[facility] Start: 09-07-2023 End: 09-07-2023 Patient encounter procedure PHYSICIAN NO [facility] [place] Work Phone: Start: 09-07-2023 End: 09-07-2023 ambulatory PHYSICIAN NO [facility] Facility:[facility] Start: 08-24-2023 End: 08-24-2023 Patient encounter procedure RHEA Alvarado Work Phone: [facility] Start: 08-24-2023 End: 08-24-2023 ambulatory Elizabeth Alvarado [facility] Work Phone: Start: 08-24-2023 End: 08-24-2023 Departed Referred RHEA Alvarado Work Phone: [facility] Start: 05-10-2023 End: 05-10-2023 Patient encounter procedure RHEA Alvarado Work Phone: [facility] Work Phone: Start: 05-10-2023 End: 05-10-2023 ambulatory RHEA Alvarado Work Phone: [facility] Work Phone: Start: 03-02-2023 End: 03-02-2023 ambulatory Tyler Jean Other [employer] Other Start: 03-02-2023 Office outpatient vi sit 25 minutes Tyler Jean [facility] Vascular Surgery Start: 02-14-2023 End: 02-14-2023 Patient encounter procedure RHEA Alvarado Work Phone: [facility] [place] Work Phone: Start: 02-14-2023 End: 02-14-2023 ambulatory BEATER TENDERNohelia Alvarado Work Phone: [facility] Work Phone: Start: 01-26-2023 FQ visit new patient Sindy Estes joanne [facility] Vascular Surgery Start: 01-26-2023 End: 01-26-2023 Patient encounter procedure RHEA Alvarado Work Phone: [facility]-XRay [facility] [place] Work Phone: Start: 01-26-2023 End: 01-26-2023 ambulatory RHEA Alvarado Work Phone: [email or web address] Other Start: 12-29-2022 Patient encounter procedure Acosta Schafer MD Work Phone: [facility] Work Phone: Start: 12-29-2022 ambulatory Provider Pending Facili ty:[id number] Start: 11-25-2022 End: 11-25-2022 Patient encounter procedure RHEA Alvarado Work Phone: [facility]-Respiratory Therapy Work Phone: Start: 11-25-2022 End: 11-25-2022 ambulatory Elizabeth Alvarado Facility:[facility] Start: 09-22-2022 Patient encounter procedure Acosta Schafer MD Work Phone: [facility] Work Phone: Start: 09-22-2022 ambulatory Provider Pending Facili ty:[id number] Start: 09-21-2022 End: 09-21-2022 ambulatory BEATER TENDER Elizabeth Alvarado Work Phone: [facility] Work Phone: Start: 09-21-2022 End: 09-21-2022 Registered Recurring RHEA Alvarado Work Phone: [facility]Cancer Center Work Phone: Start: 08-11-[address] Acosta Subramanianfield Facility:[id number] Start: 08-04-2022 End: 08-04-2022 Discharged Recurring RHEA Alvarado Work Phone: [facility]-Physical Therapy [address] Start: 07-23-2022 End: 07-23-2022 ambulatory RHEA Alvarado Work Phone: [facility] Work Phone: Start: 07-23-2022 End: 07-23-2022 Patient encounter procedure BEATER TENDER Elizabeth Alvarado Work Phone: [facility] [place] Work Phone: Start: 07-16-2022 Telephone encounter Acosta Crews MD Work Phone: [facility] Work Phone: Start: 07-14-2022 Patient encounter procedure Acosta Schafer MD Work Phone: [facility] Work Phone: Start: 07-14-[address] Acosta Alva yaneli [place]ram[place] Facility:[id number] Start: 07-07-2022 AUDIT Acosta sow MD Work Phone: [facility] Work Phone: Start: 07-01-2022 ambulatory Provider Pending Facili ty:[id number] Start: 07-01-2022 End: 07-03-2022 Evaluation and management of inpatient ACOSTA Delaney [facility] Start: 07-01-2022 [facility], Provider: Acosta Schafer, Status: Pen, Time: 7:00 AM Natali Tyson PT, DPT Work Phone: [facility] Work Phone: Start: 07-01-2022 End: 07-03-2022 Evaluation and management of inpatient Acosta Schafer MD Work Phone: [facility] Comment on above: Status post revision of total replacement of right knee (Primary Dx); Acute postoperative pain Start: 06-25-2022 Patient encounter procedure Natali Tyson PT, DPT Work Phone: [facility] Work Phone: Start: 06-25-2022 ambulatory Mr. Merrill Rawls as [facility] Facility:[id number] Start: 06-25-2022 Encounter for other preprocedural examination Mr. Merrill Hernandez Alejandro II [facility] Start: 06-24-2022 End: 06-29-2022 ambulatory ACOSTA SCHAFER [facility] Start: 06-24-2022 End: 06-28-2022 Subsequent hospital visit by physician Juan Mott 2 Kip Burleson Pre-Admission Testing Start: 05-18-2022 Patient encounter procedure Acosta Schafer MD Work Phone: [facility] Work Phone: Start: 05-18-[address] Acosta Subramanianfield Facility:[id number] Start: 05-07-2022 End: 05-07-2022 Patient encounter procedure RHEA Alvarado Work Phone: [facility]Electro[facility] Work Phone: Start: 04-13-2022 End: 04-13-2022 ambulatory RHEA Avlarado Work Phone: [facility] Work Phone: Start: 04-13-2022 End: 04-13-2022 Patient encounter procedure RHEA Alvarado Work Phone: [facility] [place] Start: 12-17-2021 End: 12-17-2021 Patient encounter procedure RHEA Alvarado Work Phone: [facility]Nuc [facility] [place] Start: 12-07-2021 End: 12-07-2021 Patient encounter procedure RHEA Alvarado Work Phone: [facility] [place] Start: 12-03-2021 End: 12-03-2021 Departed Referred RHEA Alvarado Work Phone: [facility] Procedures Date Procedure Procedure Detail Performing Clinician Start: 09-07-2023 Pelvic echography PHYSI CHIQUI NO FAMILY Start: 09-07-2023 Transvaginal echography PHYSICIAN NO FAMILY Start: 05-10-2023 Screening mammograph y of bilateral breasts RHEA Alvarado Work Phone: Start: 02-14-2023 Duplex scan of lower limb veins BEATER TENDERNohelia Alvarado Work Phone: Start: 01-26-2023 Plain chest X-ray RHEA Alvarado Work Phone: Start: 07-03-2022 BASIC METABOLIC PANE L W/ REFLEX TO MG FOR LOW K Adjondi Kamryn Born BEATER TENDER - MANAGER INSIDE Work Phone: Start: 07-03-2022 Blood count complete automated Adjyoan Coronado BEATER TENDER - MANAGER INSIDE Work Phone: Start: 07-02-2022 Dup-scan xtr veins unilateral/limited study Carlos A Villela Dilipjuancho TOMAS Work Phone: Start: 07-02-2022 BASIC METABOLIC PANE L W/ REFLEX TO MG FOR LOW K Arya Coronado BEATER TENDER [facility] Work Phone: Start: 07-02-2022 Blood count complete automated Adjyoan Coronado APRN - MANAGER INSIDE Work Phone: Start: 07-01-2022 Radiologic examinati on knee 1/2 views Arya Coronado APRN [facility] Work Phone: Start: 07-01-2022 End: 07-01-2022 Revj total knee arthrp w/wo algrft 1 component Acosta Schafer MD Work Phone: Start: 06-24-2022 Antibody screen Mloz Rn Start: 06-24-2022 Urnls dip stick/tabl et rgnt auto w/o microscopy Acosta Schafer MD Work Phone: Start: 06-24-2022 Blood typing serologic abo Acosta Schafer MD Work Phone: Start: 06-24-2022 End: 06-24-2022 Comprehensive metabolic panel Acosta Schafer MD Work Phone: Start: 06-24-2022 End: 06-24-2022 Iadna s aureus methicillin resist amp probe tq Acosta Schafer MD Work Phone: Start: 06-24-2022 Ecg routine ecg w/le ast 12 lds trcg only w/o i&r Acosta Schafer MD Work Phone: Start: 12-17-2021 Radionuclide three-p hase bone study RHEA Alvarado Work Phone: Start: 12-07-2021 US scan of thyroid BEATER TENDERNohelia Alvarado Work Phone: Start: 02-01-2019 Anesthesia consultation Start: 01-24-2019 Anesthesia consultation Plan of Treatment Date Care Activity Detail Author Start: 06-29-2023 FUV, Provider: Acosta Schafer, Status: Pen, Time: 2:15 PM FUV, Provider: Acosta Schafer, Status: Pen, Time: 2:15 PM [facility] [place] Work Phone: Start: 02-17-2023 Screening for malign ant neoplasm of colon [facility] Start: 12-29-2022 FUV, Provider: Acosta Schafer, Status: Pen, Time: 1:45 PM FUV, Provider: Acosta Schafer, Status: Pen, Time: 1:45 PM [facility] Work Phone: Start: 08-11-2022 FUV, Provider: Acosta Schafer, Status: Pen, Time: 9:45 AM FUV, Provider: Acosta Schafer, Status: Pen, Time: 9:45 AM [facility] [place] Work Phone: Start: 07-23-2022 [facility] Start: 07-14-2022 POV, Provider: Acosta Schafer, Status: Pen, Time: 9:00 AM POV, Provider: Acosta Schafer, Status: Pen, Time: 9:00 AM [facility] [place] Work Phone: Start: 07-01-2022 End: 07-01-2022 Admission to same day surgery center 07/01/2022 Surgery IP Unit Acosta Schafer MD [id number] [place] [address] RIGHT KNEE RIGHT TOTAL KNEE REVISION INSTRUMENTATION ANTONELLA FEMORAL & SCIATIC BLOCK M[facility] OR Comment on above: RIGHT KNEE RIGHT TOT AL KNEE REVISION INSTRUMENTATION ANTONELLA FEMORAL & SCIATIC BLOCK Start: 07-01-2022 End: 07-01-2022 Revj total knee arthrp w/wo algrft 1 component KNEE TOTAL ARTHROPLASTY REVISION Loosening of unicondylar knee replacement (HCC) 07/01/2022 10:50 AM [facility] Start: 07-01-2022 Subsequent hospital visit by physician 07/01/2022 Hospital Encounter IP Unit Acosta Schafer MD [id number] [place] [id number] [place] Start: 07-01-2022 [facility], Provider: Acosta Schafer, Status: Pen, Time: 7:00 AM [facility], Provider: Acosta Schafer, Status: Pen, Time: 7:00 AM [facility] [place] Work Phone: Start: 06-25-2022 [facility], Provider: Merrill Alejandro, Status: Pen, Time: 1:45 PM [facility], Provider: Merrill Alejandro, Status: Pen, Time: 1:45 PM [facility] [place] Work Phone: Start: 06-25-2022 [id number], Provider : Natali Tyson, Status: Pen, Time: 1:00 PM [id number], Provider: Natali Tyson, Status: Pen, Time: 1:00 PM [facility] [place] Work Phone: Start: 06-24-2022 Annual Wellness Visi t (AWV) Annual Wellness Visit (AWV) [facility] Start: 12-17-2021 Radionuclide three-p hase bone study NM bone 3 phase [facility] Start: 12-17-2021 End: 12-17-2021 Patient encounter procedure Departed [facility] [place] Start: 12-07-2021 US scan of thyroid US thyroid [facility] Start: 12-07-2021 End: 12-07-2021 [facility] [place] Start: 11-23-2021 Influenza vaccination Flu vaccine (# 1) [facility] Start: 05-18-2021 COVID-19 Vaccine (4 - Booster for Moderna series) COVID-19 Vaccine (4 - Booster for Moderna series) [facility] Start: 02-23-2018 Screening for malign ant neoplasm of breast Breast cancer screen [facility] Start: 02-23-2018 Shingles vaccine (1 of 2) Shingles v accine (1 of 2) [facility] Start: 02-23-2013 Screening for malign ant neoplasm of colon [facility] Start: 2008 Lipid panel Lipids [facility] Start: 02-23-2003 Diabetes screen Diabetes screen [facility] Start: 02-23-1998 Screening for malign ant neoplasm of cervix [facility] Start: 02-23-1989 Screening for malign ant neoplasm of cervix Pap smear [facility] Start: 02-23-1987 DTaP/Tdap/Td vaccine (1 - Tdap) DTaP/Tdap/Td vaccine (1 - Tdap) [facility] Start: 02-23-1986 Hepatitis C screening Hepatitis C sc reen [facility] Start: 02-23-1983 HIV screening HIV screen [facility] Start: 1980 Depression Screen Depression Screen [facility] Start: 1968 COVID-19 Vaccine (#1) COVID-19 Vacci ne (#1) [facility] End: 07-04-2022 Basic Metabolic Panel w/ Reflex to MG Basic Metabolic Panel w/ Reflex to MG Lab Routine Daily for 3 Days starting 07/02/2022 until 07/04/2022, 2 completed [facility] Work Phone: Comment on above: Daily for 3 Days sta rting 07/02/2022 until 07/04/2022, 2 completed End: 07-04-2022 CBC panel - Blood by Automated count CBC Lab Routine Daily for 3 Days starting 07/02/2022 until 07/04/2022, 2 completed [facility] Work Phone: Comment on above: Daily for 3 Days sta rting 07/02/2022 until 07/04/2022, 2 completed Comprehensive metabo lic 2000 panel - Serum or Plasma [facility] Comprehensive metabo lic 2000 panel - Serum or Plasma [facility] IgA [Mass/volume] in Serum or Plasma [facility] IgG [Mass/volume] in Serum or Plasma [facility] IgM [Mass/volume] in Serum or Plasma [facility] Oxygen therapy [[facility] Data Set] Initiate Oxygen Therapy Protocol Respiratory Care Routine Daily until discontinued starting 07/01/2022 [employer] Phone: Comment on above: Daily until disconti nued starting 07/01/2022 Spirometry panel Incentive tonja metry Respiratory Care Routine Every 2hr while awake until discontinued starting 07/01/2022 [employer] Phone: Comment on above: Every 2hr while awak e until discontinued starting 07/01/2022 [facility] Immunizations Immunization Date Immunization Notes Care Provider Fa [facility] 03-16-2016 influenza virus vaccine, unspecified formulation BEATER TENDERNohelia Alvarado Work Phone: [facility] 03-16-2016 influenza, injectabl e, quadrivalent, preservative free Sindy Giovanni Other [employer] Other Payers Date Payer Category Payer Private Health Insurance [id number] 2022 Medicaid [id number] 2022 Private Health Insurance [id number] 2022 Self-pay [id number] 2014 Private Health Insurance [id number] 1968 Unknown [id number] 2.16.840.1.588665.3.579.2. 182 1968 Unknown [id number] 2..840.1.515103.3.579.2. 182 1968 Unknown [id number] 2.16.840.1.702041.3.579.2. 356 1968 Unknown [id number] 2.16.840.1.759747.3.579.2. 8 1968 Unknown [id number] 2.16.840.1.448785.3.579.2. 1067 1968 Unknown [id number] 2.16.840.1.248440.3.579.2. 1067 1968 Unknown [id number] 2.16.840.1.677629.3.579.2. 1067 1968 Unknown [id number] 2..840.1.766636.3.579.2. 1067 1968 Unknown [id number] 2.840.1.016740.3.579.2. 1067 1968 Unknown [id number] 2..840.1.085263.3.579.2. 1067 Medicare Medicare [id number] Medicare [id number] Medicare [place] [employer] Dual Adv JRG [id number] [address] [facility] DUAL COMPLETE Unknown [id number] 2.840.1.766163.3.579.2. 531 Unknown [id number] 2.840.1.425852.3.579.2. 531 Unknown [id number] 2.840.1.747296.3.579.2. 531 Unknown [id number] 2.840.1.104847.3.579.2. 531 Unknown [id number] 2.840.1.297877.3.579.2. 531 Unknown [id number] 2.16840.1.393111.3.579.2. 531 Unknown [id number] 2.16.840.1.654486.3.579.2. 531 Unknown [id number] 2.16.840.1.485793.3.579.2. 531 Social History Date Type Detail Facility Start: 06-03-2017 End: 09-21-2022 Tobacco smoking status NHIS Never smoked tobacco (finding) [facility] Start: 1970 Sex Assigned At Female F [facility] Start: 06-24-2022 Tobacco use and exposure Smokeless tobacco non-user [employer] Phone: Start: 06-24-2022 End: 07-02-2022 Alcohol intake Current drinker of alcohol (finding) [employer] Phone: Start: 06-24-2022 Alcohol Comment occasional [employer] Phone: Start: 1970 Sex Assigned At Not on file B [employer] Phone: Start: 06-14-2022 End: 06-24-2022 Exposure to SARS-CoV-2 (event) Not sure [employer] Phone: Sex Assigned At Sex Assigned At Bir th [employer] Other Medical Equipment Procedure Code Equipment Code Equipment Origin al Text Equipment Identifier Dates Cement Bioprep S t - [id number] Start: 07-01-2022 Stem Tib [id number] [id number] Knee Tot Stbl Joey Roberta [employer] - [id number] FDA Start: 07-01-2022 Clinical Notes 06-24-2022 to 03-02-2023 Note Date & Type Note Facility 03-02-2023 Evaluation note Encounter Date Diagnosis Assessment Notes Feb, Symptomatic varicose veins of right lower extremity (ICD-10 - I83.891) I did review the patient's venous duplex results. She does have severe reflux in excess of 5 seconds in the right greater saphenous vein. She also has continuous flow in the right lesser saphenous vein. The right greater saphenous vein is patent from the groin to the ankle and size is massively enlarged at 0.64 cm throughout its length in the thigh. Patient needs findings I am recommending [employer] venous seal closure of that vein to decrease her venous hypertension and correct her valvular incompetence. This is explained to the patient and gave her a venous handout we reviewed each page individually. The risks and benefits were reviewed as well as medical surgical alternatives. I do believe this will help treat her to treat her venous symptoms. I also explained to her that venous disease is not curable and progressive throughout life. She understands and wishes to proceed all questions were addressed we will schedule this in the near future. Feb, Valvular incompetence (ICD-10 - I38) Feb, Venous insufficiency of right leg (ICD-10 - I87.2) Feb, Venous hypertension of both lower extremities (ICD-10 - I87.303) [employer] Other 10-04-2023 Evaluation note* Encounter Date Diagnosis Assessment Notes Treatment Notes Treatment Clinical Notes Jan, Symptomatic varicose veins of both lower extremities (ICD-10 - I83.893) This patient struggles with achiness, heaviness, leg fatigue, itching, burning, and swelling of bilateral lower extremities, left greater than right. She has been wearing graded compression stockings as given by her primary care provider with minimal relief in her symptoms. We discussed venous disease at length and all questions were addressed. We will start by obtaining a full functional venous duplex to evaluate for any venous valvular incompetence and bring her back to discuss those results as well as any treatment recommendations based on those studies. She understands the chronic and progressive nature of venous disease and the ongoing importance of her conservative therapy efforts. Jan, Bilateral lower extremity edema (ICD-10 - R60.0) [employer] Other 04-24-2023 Consult note Author Zoey Ramirez [facility] August 16, 2022 3:19pm Note Date/Time August 16, 2022 2:2 0pm [facility] [place] [address] Hem/Onc Consult Note - OP Signed Patient: Geeta Shelton MR#: [id number] : 1970 Acct:[id number] Age/Sex: 52 / F Type: REG RCR Copies to: Elizabeth Alvarado APRN,MANAGER INSIDE Lorrie Baig DO~ HPI Date/Time of Service: Date of Service: 08/16/2022 Time of Service: 14:19 Referring Provider/PCP: Referring Provider: Lorrie Baig DO PCP: Elizabeth Alvarado APRN, FACILITY SERVICE ASSOCIATE-C - History of Present Illness Reason for Consultation: Monoclonal gammopathy of undetermined significance Chief Complaint: Patient is here today for a referral from Dr Baig for Abnormal SPEP HPI: Dear Dr. Baig, I have seen your patient in consultation and would like to thank you for the courtesy of your referral. As you know, Geeta Shelton is a 52-year-old lady with a past medical history significant for: Asthma, anxiety, peripheral neuropathy, osteoarthritis, chronic low back pain, gait ataxia (has utilized a cane on and off over the past few years) and fatty liver. Surgical history is notable for bilateral knee replacement; left knee replaced in 2011; right knee replaced in 2019?with recent revision on 07/01/2022. The patient also reports a remote history of iron deficiency?previously on oral iron supplementation several years ago. She reports that this was largely in part due to heavy menstrual periods. She is now postmenopausal. She has been referred to our outpatient hematology clinic in regards to an incidental finding of an asymmetrical gamma; suspicious for the presence of monoclonal immunoglobulin on SPEP drawn at the time of work up for polyneuropathy. Labs from 07/23/2022 are reviewed; vitamin D 12 was at the low end of normal?358; folate?12.8; TSH within normal range at 4.76; CK?51; magnesium 1.8; phosphorus 4.5; ESR elevated at 65. Reviewed CBC and chemistry panel from 05/07/2022. WBC count?7.9; hemoglobin 14.1; hematocrit 45.4; platelet count 242,000. Mild microcytosis -MCV 79.4; elevated RDW?17.8. Relatively unremarkable chemistry panel; normal electrolytesand renal function. No history of renal insufficiency and/or diabetes. Mildly elevated transaminases; patient with confirmed fatty liver disease on prior liver ultrasound. Patient specifically denies any issues with headaches, vision changes, excessivefatigue, fever/chills, recent/recurrent infections, unintentional weight loss, night sweats, lymphadenopathy, chest pain, shortness of breath, nausea/vomiting,abdominal pain, early satiety, bowel/bladder problems, melena, hematochezia, bright red blood per rectum, hematuria, skin rash, easy bruising/bleeding, lowerextremity edema or focal bony pain. She is a lifelong non-smoker; denies alcohol or recreational drug use. No personal or family history of malignancy and/or blood disorder. No history of thrombosis. [facility] - Medical History Medical History: Medical History (Last Updated 08/13/22 @ 13:21 by Jayla Simon) Anxiety Asthma Hypertension - Surgical History Surgical History: Surgical History (Last Updated 08/13/22 @ 13:18 by Jayla Simon) History of total right knee replacement - Family History Family History: Family History (Last Updated 08/13/22 @ 13:20 by Jayla Simon) Mother Hypercholesterolemia Asthma Father Diabetes Hypertension - Social History Smoking Status: Never smoker Substance Use Type: None Home Medications & Allergies Allergies Penicillins Allergy (Verified 08/16/22 13:52) Hives ibuprofen [From Motrin] Adverse Reaction (Verified 08/16/22 13:52) Unknown Reaction Home Medications albuterol sulfate 90 mcg/actuation aerosol inhaler 2 puff inhalation Q4-6H PRN Shortness Of Breath Or Wheezing 08/13/22 [History Confirmed 08/16/22] celecoxib 200 mg capsule 200 mg PO DAILY 08/13/22 [History Confirmed 08/16/22] cyclobenzaprine 10 mg tablet 10 mg PO HS 08/13/22 [History Confirmed 08/16/22] hydroxyzine HCl 50 mg tablet 50 mg PO QHS PRN Itching 08/13/22 [History Confirmed 08/16/22] mometasone-formoterol HFA 200 mcg-5 mcg/actuation aerosol inhaler (Dulera) 2 puff inhalation Q12H 08/13/22 [History Confirmed 08/16/22] ropinirole 2 mg tablet 2 mg PO BID 08/13/22 [History Confirmed 08/16/22] solifenacin 10 mg tablet 10 mg PO DAILY 08/13/22 [History Confirmed 08/16/22] venlafaxine 75 mg tablet,extended release 24 hr 75 mg PO DAILY 08/13/22 [History Confirmed 08/16/22] Subjective Data - Diagnosis DIAGNOSIS: 1.) Asymmetrical Gamma on serum protein electrophoresis Subjective/ROS - Narrative: As per the HPI, otherwise 10 point review of systems is negative. Objective - Resuscitation Status Resuscitation Status: Full Code - Height/Weight Height/Weight: Height 5 ft 5 in Weight 129.274 kg - Vital Signs Vital Signs: 08/16/22 13:57 Temperature 98.0 F Pulse Rate [Left Brachial] 88 Respiratory Rate 16 Blood Pressure [Left Arm] 165/95 H 02 Sat by Pulse Oximetry 98 Oxygen Delivery Method Room Air Physical Exam Narrative: PHYSICAL EXAMINATION: GENERAL: Alert, no acute distress. HEENT: Head is normocephalic, atraumatic. No scleral icterus. Oral mucosa is pink and moist. No lesions or exudate. NECK: Supple without adenopathy or thyromegaly. HEART: Regular rate and rhythm. S1 and S2 normal. LUNGS: Lungs clear to auscultation bilaterally. No wheezes or crackles. ABDOMEN: Abdomen soft, obese, nontender, nondistended. No hepatosplenomegaly. Bowel sounds present x4 quadrants. BACK: Limited ROM; No CVA tenderness. EXTREMITIES: Warm and dry. Trace LE edema, no clubbing or cyanosis. NEUROLOGICAL: Decreased sensation in bilateral lower extremities; muscle strength 5/5 in extremities x 4; no focal weakness. Reports of gait ataxia and cane usage in thepast. Patient is ambulatory with no use of cane today; gait is slow but normal/steady. The patient is alert and oriented x3 - ECOG Performance Status ECOG Score: 0 Results - Imaging Other Additional comments: Patient: Geeta Shelton MR#: [id number] : 1970 Acct:[id number] Age/Sex: 51 / F ADM Date: 2 Loc: [place] Room: Type: [facility] Attending Dr: Tyler Villeda PA-C Copies to: CARLI Noyola Jeffrey S DO~ Ordering Provider: Tyler Villeda PA-C Date of Service: 12/17/21 NM/NM bone 3 phase: M25.562, M25.561 Nuclear medicine 3 phase bone scan TECHNIQUE: 23.8mCi of technetium 99m labeled MDP was administered. Planar imaging of the knees obtained in multiple planes. COMPARISON:None HISTORY: Bilateral knee pain bilateral knee replacements Findings: No hyperemia identified. Intense uptake identified in the RIGHT medial tibial plateau suggesting loosening. Additional minimal uptake identified in both knees adjacent to the knee hardware bilaterally. This may bepostsurgical. NM/NM bone 3 phase IMPRESSION: Intense uptake of the medial portion of the RIGHT tibial plateau concerning for loosening of the tibial component of the RIGHT knee arthroplasty. Assessment and Plan (1) MGUS (monoclonal gammopathy of unknown significance) Geeta is a 52 year old female who was incidentally found to have an asymmetrical gamma; suspicious for the presence of monoclonal immunoglobulin on SPEP drawn at the time of work up for polyneuropathy. Labs from 07/23/2022 are reviewed; vitamin D 12 was at the low end of normal?358; folate?12.8; TSH withinnormal range at 4.76; CK?51; magnesium 1.8; phosphorus 4.5; ESR elevated at 65. Reviewed CBC and chemistry panel from 05/07/2022. WBC count?7.9; hemoglobin 14.1; hematocrit 45.4; platelet count 242,000. Mild microcytosis -MCV 79.4; elevated RDW?17.8. Relatively unremarkable chemistry panel; normal electrolytesand renal function. No history of renal insufficiency and/or diabetes. Mildly elevated transaminases; patient with confirmed fatty liver disease on prior liver ultrasound. Given the abnormalities noted on serum protein electrophoresis, in combination with peripheral neuropathy, we will obtain further testing/work-up. Presently, the patient does not have any evidence of CRAB (no hypercalcemia, renal insufficiency, anemia or bony lesions). Patient had nuclear medicine bone scan in November 2021 after failed right knee replacement that required repeat surgery in June 2022. There was no mention of abnormal bony lytic lesions on imaging and patient is without complaints or focal areas of bony pain. We will check: CBC, CMP, iron studies/ferritin (given remote history of iron deficiency and mild microcytosis), serum immunofixation, SPEP, quantitative immunoglobulins, kappa lambda light chains/ratio. Follow up in 3-4 weeks to review. (2) Peripheral neuropathy Long standing; on and off for several years; patient reports it depends upon the weather Patient reports bilateral carpal tunnel syndrome (left > right) Seen in consultation by neurology - Dr. Baig. She underwent lower extremity EMG on 07/28/2022: Findings of moderate sensory?motor polyneuropathy with acute onchronic denervation distally; no evidence of lumbar plexopathy or myopathic process. SPEP was drawn during work up for polyneuropathy (see plan above) (3) Microcytosis Mild microcytosis, without anemia. Will check B12/folate and iron studies, ferritin. Patient notes history of iron deficiency in the past; used to take oral iron pills but hasn't for several years. She has never had a screening colonoscopy but has done Cologuard testing in the past. Denies any obvious GI blood loss. Normal hemoglobin in April 2022 at 14.1 with MCV- 79.2. - Time with Patient Total Time Spent with Patient (Consult): 45 mins - new patient, review outside labs, outside visit, medical history, order complex lab testing Coordination of Care & Counseling Time: Greater than 50% of time spent with patient was for coordination of care (as documented) and [id number] counseling of patient and/or family. Dictated By: Zoey Ramirez APRN DD/ [id number] Signed By: <Electronically signed by RHEA Ramirez> 08/16/22 [facility] Work Phone: [phone] 364-746603-11-2023 History of Present illness Narrative* Sosa Poon RN - 07/03/2022 2:01 PM EST Discharge order received. AVS printed, reviewed, and given to patient. IV removed. Education handouts provided on prevena/wound vac, and TKA. Silverio hose given to patient. Patient educated that prevena gets removed POD7 and how to remove it, that dee underneath will be removed POD 14. Patient aware to cover with gauz/paper tape after removal as ordered. Patient has [facility] set up. Knee immobilizer sent with pt, pt instructed okay to discontinue when she is able to perform a straight leg raise on RLE. Per therapy, patient was able to complete stairs and getting in/out of car. Patient aware prescriptions sent to her preferred pharmacy. Patient aware of follow up with Dr. Schafer that is scheduled. Boyfriend at bedside to take patient home. Patient has her personal walker with her. Transportplaced. * Clif García MD - 07/03/2022 7:54 AM EST Progress Note TKA Subjective: Post-Operative Day: 2 Status Post right Total Knee Arthroplasty revision Systemic or Specific Complaints:No Complaints Objective: CURRENT VITALS: BP (!) 149/87 Pulse 81 Temp 97.7 F (36.5 C) (Axillary) Resp 18 Wt 286 lb (129.7 kg) LMP 01/23/2021 (Approximate) SpO2 94% BMI 50.66 kg/m General: alert, appears stated age, and cooperative Wound: No Erythema, No Edema, No Drainage, and dressing CDI Motion: Painful range of Motion DVT Exam: No evidence of DVT seen on physical exam. Negative Candi's sign. No significant calf/ankle edema. Knee swollen but thigh soft to palpation. Moving foot and ankle. Good distal pulses. Provena good suction seal Data Review Recent Labs 07/02/22 0557 07/03/22 0442 WBC 9.1 9.2 RBC 5.06 5.02 HGB 12.9 12.9 HCT 40.3 39.9 MCV 79.6 79.6 MCH 25.5* 25.7* MCHC 32.1* 32.3* RDW 16.3* 16.5* PLT 230 230 Assessment: Status Post right Total Knee Arthroplasty revision Doing well postoperatively. DOS 07/01 Patient with complaints of left upper extremity pain and swelling. Venous duplex obtained and has ruled out DVT. Acute postoperative pain: reports mild to moderate pain to operative extremity rating pain 4/10. Pain is described as an aching sensation that is exacerbated by movement and relieved by rest, ice andpain medication. Continue current pain regimen. Acute blood loss anemia secondary to expected surgical blood loss: stable. Hgb this am 12.9. Patient asymptomatic, remains hemodynamically stable with no signs of active bleeding. Recommend daily CBC's during hospitalization. Plan: 1: Discharge possibly today if passes PT, Return to Clinic: 2 weeks : 2: Continue Deep venous thrombosis prophylaxis: xarelto 10 mg once daily for 28 days 3: Continue physical therapy: WBAT to operative extremity 4: Continue Pain Control 5. Discharge planning: patient plans to return to home with home care. Orders placed. CM and SW following for discharge planning. * Stefany Valdes RN - 07/02/2022 8:00 PM EST Pt refused to wear knee immobilizer at this time stating she is too hot when it is applied. Pt wearing SCD's as ordered. * Sosa Poon RN - 07/02/2022 6:06 PM EST Patient updated on ultrasound results to LUE Per therapy patient unable to do stairs today, recommends d/c home tomorrow. * Piyush Agustin PTA - 07/02/2022 2:39 PM EST Physical Therapy Med Surg Daily Treatment Note Facility/Department: [address] Room: [place] [address] NAME: Geeta Suresh Shelton : 1970 (52 y.o.) CODE STATUS: Full Code Date of Service: 07/02/2022 Patient Diagnosis(es): Loosening of unicondylar knee replacement (HCC) [T84.038A, Z96.659] Status post revision of total knee replacement, right [Z96.651] No chief complaint on file. Patient Active Problem List Diagnosis Date Noted Status post revision of total knee replacement, right 07/01/2022 Past Medical History: Diagnosis Date Asthma Hypertension Past Surgical History: Procedure Laterality Date JOINT REPLACEMENT Left knee PARTIAL KNEE ARTHROPLASTY Right REVISION TOTAL KNEE ARTHROPLASTY Right 07/01/2022 RIGHT KNEE RIGHT TOTAL KNEE REVISION INSTRUMENTATION ANTONELLA FEMORAL & SCIATIC BLOCK-DEMETRIA performed by Ac[place] [facility] [place] Reviewed: Yes Restrictions: Restrictions/Precautions: Fall Risk;Weight Bearing Lower Extremity Weight Bearing Restrictions Right Lower Extremity Weight Bearing: Weight Bearing As Tolerated Required Braces or Orthoses Right Lower Extremity Brace: Knee Immobilizer Position Activity Restriction Other position/activity restrictions: d/c knee immobilizer when able to perform SLR SUBJECTIVE: Subjective: This leg is so restless Pain Pain: 3/10 pain pre/post session OBJECTIVE: Bed mobility Supine to Sit: Stand by assistance Scooting: Stand by assistance Bed Mobility Comments: good carryover of technique from AM session, improved facilitation and good management of RLE throughout Transfers Sit to Stand: Stand by assistance Stand to Sit: Stand by assistance Comment: good carryover of technique and improved hand placement, increased effort required but able to perform without CGA this session. Ambulation Surface: Level tile Device: Rolling Walker Assistance: Contact guard assistance Quality of Gait: antalgic gait pattern, very slow nadege, progressing to step through pattern Gait Deviations: Slow Nadege;Decreased step length;Decreased step height Distance: 25 ft x 2 Comments: Distance continues to be limited by pain, pt requires vc's to reduce valsalva manuever aswell as improved weight shifting through RLE. Pt denies further distance. Activity Tolerance Activity Tolerance: Patient tolerated treatment well;Patient limited by pain ASSESSMENT Assessment: Pt requests stair and car transfer training to wait until tomorrow as she does not feelcomfortable with performing at this time, this therapist in agreement. Pt agreeable to gait training, up to bedside chair at end of session to promote OOB activity. Discharge Recommendations: Continue to assess pending progress Goals Group Home Goals Group Home Goal 1: Bed mobility with indep Group Home Goal 2: Functional transfes with indep Group Home Goal 3: Amb 50ft with 2ww and indep Group Home Goal 4: 4 steps with handrail and SBA [employer] Goal 5: indep with HEP to improve LE strength and ROM Patient Goals Patient Goals : to go home PLAN General Plan: 2 times a day 7 days a week Safety Devices Type of Devices: All fall risk precautions in place, Call light within reach, Chair alarm in place,Left in chair AMPAC (6 CLICK) BASIC MOBILITY AM-PAC Inpatient Mobility Raw Score : 17 Therapy Time Individual Time In 1354 Time Out 1411 Minutes 17 BM/trsf- 4 Gait- 13 Piyush Agustin PTA, 07/02/22 at 2:39 PM Definitions for assistance levels Independent = pt does not require any physical supervision or assistance from another person for activity completion. Device may be needed. Stand by assistance = pt requires verbal cues or instructions from another person, close to but nottouching, to perform the activity Minimal assistance= pt performs 75% or more of the activity; assistance is required to complete theactivity Moderate assistance= pt performs 50% of the activity; assistance is required to complete the activity Maximal assistance = pt performs 25% of the activity; assistance is required to complete the activity Dependent = pt requires total physical assistance to accomplish the task * Piyush Agustin PTA - 07/02/2022 11:35 AM EST Physical Therapy Med Surg Daily Treatment Note Facility/Department: [address] [id number]: Geeta Shel[facility] : 1970 (52 y.o.) CODE STATUS: Full Code Date of Service: 07/02/2022 Patient Diagnosis(es): Loosening of unicondylar knee replacement (HCC) [T84.038A, Z96.659] Status post revision of total knee replacement, right [Z96.651] No chief complaint on file. Patient Active Problem List Diagnosis Date Noted Status post revision of total knee replacement, right 07/01/2022 Past Medical History: Diagnosis Date Asthma Hypertension Past Surgical History: Procedure Laterality Date JOINT REPLACEMENT Left knee PARTIAL KNEE ARTHROPLASTY Right Chart Reviewed: Yes Restrictions: Restrictions/Precautions: Fall Risk;Weight Bearing Lower Extremity Weight Bearing Restrictions Right Lower Extremity Weight Bearing: Weight Bearing As Tolerated Required Braces or Orthoses Right Lower Extremity Brace: Knee Immobilizer Position Activity Restriction Other position/activity restrictions: d/c knee immobilizer when able to perform SLR SUBJECTIVE: Subjective: I would like to get up to the bathroom Pain Pain: 3/10 pain pre/post session OBJECTIVE: Bed mobility Supine to Sit: Stand by assistance Sit to Supine: Stand by assistance Scooting: Stand by assistance Bed Mobility Comments: HOB elevated, occasional use of hand rails. vc's for technique and sequencing throughout, pt uses swinging momentum to complete coming to seated and return to supine, vc's for safety throughout. Transfers Sit to Stand: Contact guard assistance Stand to Sit: Contact guard assistance Comment: WW used, increased time and effort to complete but able to perform without need for lifting assistance at this time. Increased time to stabilize in standing, vc's for hand placement and safety throughout Ambulation Surface: Level tile Device: Rolling Walker Assistance: Contact guard assistance Quality of Gait: antalgic gait pattern, very slow nadege, progressing to step through pattern Gait Deviations: Slow Nadege;Decreased step length;Decreased step height Distance: 15 ft, 25 ft x2 Comments: pt able to initiate and progress with gait training this session, vc's for WW management throughout environment and safety. Pt very slow to complete, presents with significantly antalgic gait pattern, but able to increase distance. Pt fatigued with distance and requests return to supine. Stairs/Curb Stairs?: (declines this session, agreeable to PM if appropriate) PT Exercises Exercise Treatment: Pt given written HEP and instructed on frequency/dosage/technique of all exercises- verbalizes good understanding A/AROM Exercises: supine AP/QS/GS/SLR/HS x10 BLE AAROM RLE Activity Tolerance Activity Tolerance: Patient tolerated treatment well ASSESSMENT Assessment: Pt requires significantly increased time and effort for all mobility. Pt declines stair/car transfer training this session d/t pain levels and pt reporting not feeling comfortable with performing yet. Discharge Recommendations: Continue to assess pending progress Goals [employer] Goals Group Home Goal 1: Bed mobility with indep [employer] Goal 2: Functional transfes with indep [employer] Goal 3: Amb 50ft with 2ww and indep Group Home Goal 4: 4 steps with handrail and SBA [employer] Goal 5: indep with HEP to improve LE strength and ROM Patient Goals Patient Goals : to go home PLAN General Plan: 2 times a day 7 days a week Safety Devices Type of Devices: All fall risk precautions in place, Call light within reach, Left in bed, Bed alarm in place, Nurse notified [facility] (6 CLICK) BASIC MOBILITY AM-PAC Inpatient Mobility Raw Score : 17 Therapy Time Individual Time In 0945 Time Out 1025 Minutes 40 BM/trsf- 10 Gait- 15 Therex- 15 Piyush Agustin PTA, 07/02/22 at 11:35 AM Definitions for assistance levels Independent = pt does not require any physical supervision or assistance from another person for activity completion. Device may be needed. Stand by assistance = pt requires verbal cues or instructions from another person, close to but nottouching, to perform the activity Minimal assistance= pt performs 75% or more of the activity; assistance is required to complete theactivity Moderate assistance= pt performs 50% of the activity; assistance is required to complete the activity Maximal assistance = pt performs 25% of the activity; assistance is required to complete the activity Dependent = pt requires total physical assistance to accomplish the task * Arya Coronado, BEATER TENDER - MANAGER INSIDE - 07/02/2022 9:49 AM EST Progress Note TKA Subjective: Post-Operative Day: 1 Status Post right Total Knee Arthroplasty revision Systemic or Specific Complaints:No Complaints Objective: CURRENT VITALS: BP 136/67 Pulse 89 Temp 97 F (36.1 C) (Axillary) Resp 20 Wt 286 lb (129.7 kg) LMP 01/23/2021 (Approximate) SpO2 93% BMI 50.66 kg/m General: alert, appears stated age, and cooperative Wound: No Erythema, No Edema, No Drainage, and dressing CDI Motion: Painful range of Motion DVT Exam: No evidence of DVT seen on physical exam. Negative Candi's sign. No significant calf/ankle edema. Knee swollen but thigh soft to palpation. Moving foot and ankle. Good distal pulses. Data Review Recent Labs 07/02/22 0557 WBC 9.1 RBC 5.06 HGB 12.9 HCT 40.3 MCV 79.6 MCH 25.5* MCHC 32.1* RDW 16.3* PLT 230 Assessment: Status Post right Total Knee Arthroplasty revision Doing well postoperatively. Patient with complaints of left upper extremity pain and swelling. Venous duplex obtained and has ruled out DVT. Acute postoperative pain: reports mild to moderate pain to operative extremity rating pain 4/10. Pain is described as an aching sensation that is exacerbated by movement and relieved by rest, ice andpain medication. Continue current pain regimen. Acute blood loss anemia secondary to expected surgical blood loss: stable. Hgb this am 12.9. Patient asymptomatic, remains hemodynamically stable with no signs of active bleeding. Recommend daily CBC's during hospitalization. Plan: 1: Discharge today, Return to Clinic: 2 weeks : 2: Continue Deep venous thrombosis prophylaxis: xarelto 10 mg once daily for 28 days 3: Continue physical therapy: WBAT to operative extremity 4: Continue Pain Control 5. Discharge planning: patient plans to return to home with home care. Orders placed. CM and SW following for discharge planning. * Fouzia Ramos RN - 07/02/2022 6:36 AM EST 1930: Assumed care of pt at RN shift change after receiving bedside report from RN Ozzie Pt AO4, no acute distress noted at this time, side rails up x 2, call light within reach, and whiteboard updated. Pt with no immediate questions or concerns at this time 2300: pt shift assessment completed (see flow sheet data). Ice applied to incision. Pt reported a sudden onset of sharp, burning 10/10 pain. Educated pt on pain control and not letting pain increase to an unbearable level, pt verbalized understanding. Explained to pt the block likely was beginning to wear off, so pt medicated with morphine per order.Pt purewick in place. 0200: pt reported a decrease in pain to a tolerable level after medication administration previously. Pt reassessed and neurovascular checks WNL. 0530: pt reported waking up with c/o LUE swelling and pain from shoulder to fingertips. IV assessed, good blood return, flushes well, no concerns of possible infiltration or phlebitis. Edema 1+, non pitting. Pt denies CP, SOB or known trauma/injury to area. Dr Hou made aware and US to be ordered to RO possible DVT 0630: pt purewick changed, Dr Schafer bedside. Bandage removed and knee immobilizer replaced withice pack per his order. * Mic Aparicio RCP - 07/01/2022 5:51 PM EST Images from the original note were not included. Nam Wong Respiratory Therapy Evaluation Current Order: ALBUTEROL AERO Q6PRN/SYMBICORT BID Home Regimen: AERO ALBUTEROL PRN Ordering Physician: ELIAS Re-evaluation Date: DONE Diagnosis: LOOSENING OF KNEE REPLACEMENT Patient Status: Stable / Unstable + Physician notified The following MDI Criteria must be met in order to convert aerosol to MDI with spacer. If unable tomeet, MDI will be converted to aerosol: [] Patient able to demonstrate the ability to use MDI effectively [] Patient alert and cooperative [] Patient able to take deep breath with 5-10 second hold [] Medication(s) available in this delivery method [] Peak flow greater than or equal to 200 ml/min Current Order Substituted To (same drug, same frequency) Aerosol to MDI [] Albuterol Sulfate 0.083% unit dose by aerosol Albuterol Sulfate MDI 2 puffs by inhalation with spacer [] Levalbuterol 1.25 mg unit dose by aerosol Levalbuterol MDI 2 puffs by inhalation with spacer [] Levalbuterol 0.63 mg unit dose by aerosol Levalbuterol MDI 2 puffs by inhalation with spacer [] Ipratropium Brumley 0.02% unit dose by aerosol Ipratropium Brumley MDI 2 puffs by inhalation with spacer [] Duoneb (Ipratropium + Albuterol) unit dose by aerosol Ipratropium MDI + Albuterol MDI 2 puffs byinhalation w/spacer MDI to Aerosol [] Albuterol Sulfate MDI Albuterol Sulfate 0.083% unit dose by aerosol [] Levalbuterol MDI 2 puffs by inhalation Levalbuterol 1.25 mg unit dose by aerosol [] Ipratropium Brumley MDI by inhalation Ipratropium Brumley 0.02% unit dose by aerosol [] Combivent (Ipratropium + Albuterol) MDI by inhalation Duoneb (Ipratropium + Albuterol) unit doseby aerosol Treatment Assessment [Frequency/Schedule]: Change frequency to: NO CHANGE per Protocol, P&T, MEC Points 0 1 2 3 4 Pulmonary Status Non-Smoker [x] Smoking history < 20 pack years [] Smoking history ? 20 pack years [] Pulmonary Disorder (acute or chronic) [] Severe or Chronic w/ Exacerbation [] Surgical Status No [] Surgeries General [x] Surgery Lower [] Abdominal Thoracic or [] Upper Abdominal Thoracic with PulmonaryDisorder [] Chest X-ray Clear/Not Ordered [x] Chronic Changes Results Pending [] Infiltrates, atelectasis, pleural effusion, or edema [] Infiltrates in more thanone lobe [] Infiltrate + Atelectasis, &/or pleural effusion [] Respiratory Pattern Regular, RR = 12-20 [x] Increased, RR = 21-25 [] DESOUZA, irregular, or RR = 26-30 [] Decreased FEV1 or RR = 31-35 [] Severe SOB, use of accessory muscles, or RR ? 35 [] Mental Status Alert, oriented, Cooperative [x] Confused but Follows commands [] Lethargic or unable to follow commands [] Obtunded[] Comatose [] Breath Sounds Clear to auscultation [] Decreased unilaterally or in bases only [] Decreased bilaterally [x] Crackles or intermittent wheezes [] Wheezes [] Cough Strong, Spontan., & nonproductive [x] Strong, spontaneous, & productive [] Weak, Nonproductive [] Weak, productive or with wheezes [] No spontaneous cough or may require suctioning [] Level of Activity Ambulatory [x] Ambulatory w/ Assist [] Non-ambulatory [] Paraplegic [] Quadriplegic [] Total Score:___3____ Triage Score:__5 Tri Triage: 1. (>20) Freq: Q3 2. (16-20) Freq: Q4 3. (11-15) Freq: QID & Albuterol Q2 PRN 4. (6-10) Freq: TID & Albuterol Q2 PRN 5. (0-5) Freq Q4prn * Kyrie Sahni OTR/Orin - 07/01/2022 4:05 PM EST [facility] OCCUPATIONAL THERAPY EVALUATION - ACUTE NAME: Geeta Shelton : 1970 (52 y.o.) CODE STATUS: Full Code Room: [place] [address] Date of Service: 07/01/2022 Patient Diagnosis(es): Loosening of unicondylar knee replacement (HCC) [T84.038A, Z96.659] Status post revision of total knee replacement, right [Z96.651] Patient Active Problem List Diagnosis Date Noted Status post revision of total knee replacement, right 07/01/2022 Past Medical History: Diagnosis Date Asthma Hypertension Past Surgical History: Procedure Laterality Date JOINT REPLACEMENT Left knee PARTIAL KNEE ARTHROPLASTY Right Restrictions Restrictions/Precautions: Fall Risk, Weight Bearing Required Braces or Orthoses?: Yes Right Lower Extremity Weight Bearing: Weight Bearing As Tolerated Other position/activity restrictions: d/c knee immobilizer when able to perform SLR Safety Devices: Safety Devices Type of Devices: All fall risk precautions in place;Call light within reach;Left in bed Patient's date of confirmed: Yes General: Patient assessed for rehabilitation services?: Yes Subjective Pain at start of treatment: No Pain at end of treatment: No Location: Description: Nursing notified: Not Applicable RN: Intervention: Repositioned Prior Level of Function: Social/Functional History Lives With: Family Type of Home: House Home Layout: One level Home Access: Stairs to enter without rails Entrance Stairs - Number of Steps: 2 Bathroom Shower/Tub: Tub/Shower unit Bathroom Equipment: Grab bars in shower Home Equipment: Walker, standard Has the patient had two or more falls in the past year or any fall with injury in the past year?: No Receives Help From: Family ADL Assistance: Independent Homemaking Assistance: Independent Homemaking Responsibilities: Yes Ambulation Assistance: Independent Transfer Assistance: Independent 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 Mode of Transportation: Car OBJECTIVE: Orientation Status: Orientation Overall Orientation Status: Within Functional Limits Orientation Level: Oriented X4;Oriented to place;Oriented to time;Oriented to situation;Oriented toperson Observation: Observation/Palpation Posture: Good Observation: right knee incision with bandage and knee immobilizer in place Cognition Status: Cognition Overall Cognitive Status: WFL Cognition Comment: Follows commands consistently Perception Status: Perception Overall Perceptual Status: WFL Vision and Hearing Status: Vision Vision Exceptions: Wears glasses for reading Hearing Hearing: Within functional limits Vision - Basic Assessment Prior Vision: Wears glasses only for reading Visual History: No significant visual history Patient Visual Report: No visual complaint reported. Visual Field Cut: No Oculo Motor Control: WNL GROSS ASSESSMENT AROM/PROM: AROM: Within functional limits ROM: LUE AROM (degrees) LUE AROM : WFL Left Hand AROM (degrees) Left Hand AROM: WFL RUE AROM (degrees) RUE AROM : WFL Right Hand AROM (degrees) Right Hand AROM: WFL UE STRENGTH: Strength: Within functional limits (4+/5 bilateral UE strength) UE COORDINATION: Coordination: Within functional limits UE TONE: Tone: Normal UE SENSATION: Sensation: (impaired bilateral LE due to anesthesia) Hand Dominance: Hand Dominance Hand Dominance: Right ADL Status: ADL Feeding: Unable to assess(comment) Grooming: Setup UE Bathing: Setup;Increased time to complete LE Bathing: Moderate assistance;Increased time to complete UE Dressing: Setup LE Dressing: Maximum assistance;Increased time to complete Toileting: Unable to assess(comment) Functional Mobility: Bed Mobility Bed mobility Bridging: Stand by assistance Rolling to Left: Stand by assistance Rolling to Right: Stand by assistance Supine to Sit: Stand by assistance Sit to Supine: Stand by assistance Scooting: Stand by assistance Seated and Standing Balance: Balance Sitting: Intact Standing: (Pt unable to come to complete stand at this time) Functional Endurance: Activity Tolerance Activity Tolerance: Treatment limited secondary to medical complications (free text) D/C Recommendations: OT D/C RECOMMENDATIONS REQUIRES OT FOLLOW-UP: Yes Equipment Recommendations: OT Education: OT Follow Up: OT D/C RECOMMENDATIONS REQUIRES OT FOLLOW-UP: Yes Assessment/Discharge Disposition: Performance deficits / Impairments: Decreased functional mobility , Decreased balance, Decreased ADL status, Decreased high-level IADLs, Decreased endurance, Decreased sensation Prognosis: Good Discharge Recommendations: Continue to assess pending progress Decision Making: Medium Complexity History: moderate Exam: 6 complexities Assistance / Modification: Mod A AMPAC (Six Click) Self care Score How much help is needed for putting on and taking off regular lower body clothing?: A Lot How much help is needed for bathing (which includes washing, rinsing, drying)?: A Lot How much help is needed for toileting (which includes using toilet, bedpan, or urinal)?: A Little How much help is needed for putting on and taking off regular upper body clothing?: None How much help is needed for taking care of personal grooming?: None How much help for eating meals?: None [facility] Inpatient Daily Activity Raw Score: 19 [facility] Inpatient ADL T-Scale Score : 40.22 ADL Inpatient CMS 0-100% Score: 42.8 Therapy do for assistance levels - Independent/Mod I = Pt. is able to perform task with no assistance but may require a device Stand by assistance = Pt. does not perform task at an independent level but does not need physical assistance, requires verbal cues Minimal, Moderate, Maximal Assistance = Pt. requires physical assistance (25%, 50%, 75% assist fromhelper) for task but is able to actively participate in task Dependent = Pt. requires total assistance with task and is not able to actively participate with task completion Plan: Occupational Therapy Plan Times Per Week: 1-4x/wk Current Treatment Recommendations: Balance training, Functional mobility training, Endurance training, Neuromuscular re-education, Self-Care / ADL Goals: Patient will: - Improve functional endurance to tolerate/complete 25-35 mins of ADL's - Be independent in UB ADLs - Be SBA in LB ADLs - Be Supervision in ADL transfers without LOB - Be Supervision in toileting tasks Patient Goal: Patient goals : To return to home Discussed and agreed upon: Yes Comments: Therapy Time: Individual Time In 1540 Time Out 1555 Minutes 15 Eval: 15 minutes Electronically signed by: JACE Anderson, 07/01/2022, 4:07 PM * Esther Bland, PT - 07/01/2022 4:03 PM EST Physical Therapy Med Surg Initial Assessment Facility/Department: [address] Room: [facility]/W268-01 NAME: Geeta Prince Shelton : 1970 (52 y.o.) CODE STATUS: Full Code Date of Service: 07/01/2022 Patient Diagnosis(es): Loosening of unicondylar knee replacement (HCC) [T84.038A, Z96.659] Status post revision of total knee replacement, right [Z96.651] No chief complaint on file. Patient Active Problem List Diagnosis Date Noted Status post revision of total knee replacement, right 07/01/2022 Past Medical History: Diagnosis Date Asthma Hypertension Past Surgical History: Procedure Laterality Date JOINT REPLACEMENT Left knee PARTIAL KNEE ARTHROPLASTY Right Chart Reviewed: Yes Patient assessed for rehabilitation services?: Yes Family / Caregiver Present: No Restrictions: Restrictions/Precautions: Fall Risk, Weight Bearing Lower Extremity Weight Bearing Restrictions Right Lower Extremity Weight Bearing: Weight Bearing As Tolerated Required Braces or Orthoses Right Lower Extremity Brace: Knee Immobilizer Position Activity Restriction Other position/activity restrictions: d/c knee immobilizer when able to perform SLR SUBJECTIVE: Subjective: Pt denies pain currently Pain Pre treatment screening: denies Post treatment screening denies Prior Level of Function: Social/Functional History Lives With: Family Type of Home: House Home Layout: One level Home Access: Stairs to enter without rails Bathroom Shower/Tub: Tub/Shower unit Bathroom Equipment: Grab bars in shower Home Equipment: Walker, standard Has the patient had two or more falls in the past year or any fall with injury in the past year?: No Receives Help From: Family ADL Assistance: Independent Homemaking Assistance: Independent Homemaking Responsibilities: Yes Ambulation Assistance: Independent Transfer Assistance: Independent 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 Mode of Transportation: Car OBJECTIVE: Vision Vision: Impaired Vision Exceptions: Wears glasses for reading Hearing: Within functional limits Cognition: Overall Orientation Status: Within Functional Limits Orientation Level: Oriented X4, Oriented to place, Oriented to time, Oriented to situation, Oriented to person Follows Commands: Within Functional Limits Overall Cognitive Status: WFL Cognition Comment: Follows commands consistently Observation/Palpation Posture: Good Observation: alert, pleasant, cooperative, no acute distress noted, on RA, R knee immobilizer adjusted for improved fit, compression bandage intact ROM: AROM: Grossly decreased, non-functional (R knee limited s/p TKA revision, not formally tested d/t bulky bandage) PROM: Grossly decreased, non-functional (R knee limited s/p TKA revision, not formally tested d/t bulky bandage) Strength: Strength: Generally decreased, functional Neuro: Balance Sitting - Static: Good Sitting - Dynamic: Good Standing - Static: Poor;+ (decreased strength noted and pt c/o tingling/numbness of foot- motor control intact against gravity) Standing - Dynamic: Poor Tone: Normal Coordination: Within functional limits Sensation: Impaired (pt reports tingling in surgical foot/limb) Bed mobility Rolling to Left: Stand by assistance Rolling to Right: Stand by assistance Supine to Sit: Stand by assistance Sit to Supine: Stand by assistance Scooting: Stand by assistance Transfers Sit to Stand: Moderate Assistance Stand to Sit: Moderate Assistance Lateral Transfers: Stand by assistance (seated scooting at EOB to reposition self at top of bed) Comment: with 2ww, transfers aborted d/t decreased motor control in standing Ambulation Assistance: Unable to assess Activity Tolerance Activity Tolerance: Patient tolerated evaluation without incident;Treatment limited secondary to medical complications Activity Tolerance Comments: residual anesthesia Patient Education Education Given To: Patient Education Provided: Role of Therapy;Plan of Care;Transfer Training Education Provided Comments: walker height- adjusted for pt, knee immobilizer until SLR, positioning, cold compress/ice, WBAT Education Method: Verbal Barriers to Learning: None Education Outcome: Verbalized understanding ASSESSMENT: Body Structures, Functions, Activity Limitations Requiring Skilled Therapeutic Intervention: Decreased functional mobility ;Decreased strength;Decreased ROM;Decreased cognition;Increased pain;Decreased posture;Decreased balance Decision Making: Medium Complexity History: med Exam: med Clinical Presentation: med Specific Instructions for Next Treatment: TKA Therapy Prognosis: Good Barriers to Learning: none DISCHARGE RECOMMENDATIONS: Discharge Recommendations: Continue to assess pending progress Assessment: Pt demonstrates the above deficits and decline in functional mobility s/p R TKA revision. Pt would benefit from physical therapy to address above deficits and allow for safe return home at highest level of function, decrease risk for falls, and improve QOL. Requires PT Follow-Up: Yes PLAN OF CARE: Physcial Therapy Plan General Plan: 2 times a day 7 days a week Specific Instructions for Next Treatment: TKA Current Treatment Recommendations: Strengthening, ROM, Balance training, Functional mobility training, Transfer training, Gait training, Stair training, Neuromuscular re-education, Home exercise program, Equipment evaluation, education, & procurement, Safety education & training, Modalities, Therapeutic activities Safety Devices Type of Devices: All fall risk precautions in place, Call light within reach, Left in bed, Bed alarm in place Restraints Restraints Initially in Place: No Goals: Patient Goals : to go home [employer] Goals Group Home Goal 1: Bed mobility with indep Group Home Goal 2: Functional transfes with indep Group Home Goal 3: Amb 50ft with 2ww and indep [employer] Goal 4: 4 steps with handrail and SBA Group Home Goal 5: indep with HEP to improve LE strength and ROM [facility] (6 CLICK) BASIC MOBILITY [facility] Inpatient Mobility Raw Score : 15 Therapy Time: Individual Time In 1542 Time Out 1558 Minutes 16 Esther Bland PT, 07/01/22 at 4:18 PM Definitions for assistance levels Independent = pt does not require any physical supervision or assistance from another person for activity completion. Device may be needed. Stand by assistance = pt requires verbal cues or instructions from another person, close to but nottouching, to perform the activity Minimal assistance= pt performs 75% or more of the activity; assistance is required to complete theactivity Moderate assistance= pt performs 50% of the activity; assistance is required to complete the activity Maximal assistance = pt performs 25% of the activity; assistance is required to complete the activity Dependent = pt requires total physical assistance to accomplish the task documented [facility] [employer] Work Phone: 1(833) 400-293703-09-2023 History of Present illness Narrative* History of present illness * 52-year-old female presented clinic today for her first postop follow-up visit status post right knee conversion from a unit to a total performed 07/01/2022. Overall doing well. Ambulating with the assistance of a cane. She still using her oxycodone and cyclobenzaprine but she is using her muscle relaxant in the morning rather than at night. She still has some discomfort at night with spasms when she is trying to get comfortable for sleep. No numbness tingling no fevers chills reported. Swelling is improving. She is now done with home physical therapy and is transitioning to outpatient physicaltherapy next week she will most likely do this at [facility] in [place]. * Physical exam * General: No acute distress and breathing comfortably. Patient is pleasant and cooperative with the examination. * Extremity * Right knee is neurovascular intact. Good range of motion 5 to 90 degrees. Incisions well-healed well approximated without abnormality. Wound is clean dry and intact. No erythema ecchymosis. Minimal calf swelling but no tenderness. No signs of DVT. 2+ pulses bilateral lower extremity. Capillary refill is within normal is distally. Compartments are soft. Mild tenderness palpation medial compartment. * Diagnostics * Please see dictated x-ray report * Procedure * Dee removed Steri-Strips placed without complication * Assessment * Status post right knee conversion from a partial knee to a total knee replacement * Treatment plan * 1. She was encouraged to continue weightbearing activity as tolerated. * 2. Wound instructions were discussed today. Prescription for outpatient therapy was given. Prescription refill for oxycodone and cyclobenzaprine sent to the pharmacy today. * 3. She will follow-up with us in 3 weeks for reevaluation without x-ray. * 4. All of the patient's questions were answered. * I have personally reviewed the OARRS report for this patient. This report is scanned into the electronic medical record. I have considered the risks of abuse, dependence, addiction and diversion. Pain can reach 8/10 at times. * This note was prepared using voice recognition software. The details of this note are correct and have been reviewed, and corrected to the best of my ability. Some grammatical areas may persist related to the [employer] software * Merrill Alejandro PA-C * . [facility] Work Phone: 1(684) 832-941803-07-2023 Hospital Discharge instructions* Discharge Instructions* Arya Coronado APRN - MANAGER INSIDE - 06/29/2022 11:33 AM EST Total Knee Replacement Discharge Instructions To prevent Clot formation, you have been placed on the following medication: Xarelto 10 mg once daily for 28 days starting on 07/02/22 Surgical Site Care: .Change dressing once a day and PRN (as needed). Apply 4 x 4 sponge and light tape. If glue present, leave open to air. You may leave wound open to air after initial dressing removal, if wound is clean, dry and intact If Aquacel Ag dressing is present, do not remove dressing for 7 days, unless heavily saturated. If heavily saturated, remove dressing and start using instructions above Dee will be removed on post-operative day 14 and steri-strips applied Showering is permitted starting POD1 if waterproof Aquacel dressing is present or when the incisionis covered with 4 x 4 and Tegaderm waterproof dressing Until all areas of incision are healed. Physical Therapy: Weight Bearing Status: WBAT (Weight bearing as tolerated) Precautions, Per Physical Therapy Handout Pain Medications You were given oxycodone/acetaminophen (Percocet) Wean off pain medications as you deem appropriate as long as pain is under control Cold packs/Ice packs/Machine May be used 3 times daily for 15-30 minutes as necessary Be sure to have a barrier (cloth, clothing, towel) between the site and the ice pack to prevent frostbite [facility] office if Increased redness, swelling, drainage of any kind, and/or pain to surgery site. As well as new onset fevers and or chills. These could signify an infection. Calf or thigh tenderness to touch as well as increased swelling or redness. This could signify a clot formation. Numbness or tingling to an area around the incision site or below the incision site (toes). Any rash appears, increased or new onset nausea/vomiting occur. This may indicate a reaction to a medication. . Follow up with Surgeon I acknowledge that I have received silverio hose and understand the instructions on how and when to wearthem (on during the day, off at night) Discharging RN who has gone over instructions and acknowledges silverio hose have been received If you are going home with home health care and do not receive a call within the first 48 hours after returning home, please contact your surgeon's office and your home health care agency. * Discharge Instr - MATTIE* Sosa Poon RN - 07/03/2022 11:50 AM EST Continuity of Care Form Patient Name: Geeta Shelton : 1970 Admit date: 07/01/2022 Discharge date: 07-03-22 Code Status Order: Full Code Advance Directives: Advance Care Flowsheet Documentation Date/Time Healthcare Directive Type of Healthcare Directive Copy in Chart Healthcare Agent Appointed Healthcare Agent's Name Healthcare Agent's Phone Number 07/01/22 0836 No, patient does not have an advance directive for healthcare treatment -- -- -- -- -- Admitting Physician: Acosta Schafer MD PCP: Elizabeth Alvarado Discharging Nurse: Discharging Hospital Unit/Room#: W268/W268-01 Discharging Unit Phone Number: [phone] Emergency Contact: Extended Emergency Contact Information Primary Emergency Contact: kena travis Relation: Other Past Surgical History: Past Surgical History: Procedure Laterality Date JOINT REPLACEMENT Left knee PARTIAL KNEE ARTHROPLASTY Right REVISION TOTAL KNEE ARTHROPLASTY Right 07/01/2022 RIGHT KNEE RIGHT TOTAL KNEE REVISION INSTRUMENTATION ANTONELLA FEMORAL & SCIATIC BLOCK-DEMETRIA [place] [facility] [place] Immunization History: There is no immunization history on file for this patient. Active Problems: Patient Active Problem List Diagnosis Code Status post revision of total knee replacement, right Z96.651 Isolation/Infection: Isolation No Isolation Patient Infection Status None to display Nurse Assessment: Last Vital Signs: BP 129/70 Pulse 83 Temp 97.9 F (36.6 C) (Oral) Resp 18 Wt 286 lb (129.7 kg) LMP 01/23/2021 (Approximate) SpO2 98% BMI 50.66 kg/m Last documented pain score (0-10 scale): Pain Level: 6 Last Weight: Wt Readings from Last 1 Encounters: 07/02/22 286 lb (129.7 kg) Mental Status: oriented, alert, logical, and thought processes intact IV Access: - None Nursing Mobility/ADLs: Walking Assisted Transfer Independent Bathing Assisted Dressing Assisted Toileting Independent Feeding 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 Independent Med Delivery whole Wound Care Documentation and Therapy: Negative Pressure Wound Therapy Knee Anterior;Right (Active) Wound Type Surgical 07/02/222099 Dressing Type Other (Comment) 07/02/22899 Target Pressure (mmHg) 125 07/01/22 1831 Dressing Status Clean, dry & intact 07/02/22 2100 Drainage Amount None 07/02/22 2100 Output (ml) 0 ml 07/01/22 1325 Odor None 07/02/22 09 Number of days: 1 Incision 07/01/22 Knee Anterior;Right (Active) Dressing Status Clean;Dry;Intact 07/02/222099 Incision Cleansed Not Cleansed 07/01/221942 Dressing/Treatment [place] wrap;Cast padding 07/01/221942 Margins Other (Comment) 07/01/221942 Incision Assessment Other (Comment) 07/01/221942 Drainage Amount None 07/02/22 2100 Odor None 07/02/22 2100 Number of days: 1 Elimination: Continence: Bowel: Yes Bladder: Yes Urinary Catheter: None Colostomy/Ileostomy/Ileal Conduit: No Date of Last BM: 07-02-22 No intake or output data in the 24 hours ending 07/03/22 1148 No intake/output data recorded. Safety Concerns: At Risk for Falls Impairments/Disabilities: None Nutrition Therapy: Current Nutrition Therapy: - Oral Diet: General Routes of Feeding: Oral Liquids: Thin Liquids Daily Fluid Restriction: no Last Modified Barium Swallow with Video (Video Swallowing Test): not done Treatments at the Time of Hospital Discharge: Respiratory Treatments: scheduled Oxygen Therapy: is not on home oxygen therapy. Ventilator: - No ventilator support Rehab Therapies: Physical Therapy and Occupational Therapy Weight Bearing Status/Restrictions: No weight bearing restrictions Other Medical Equipment (for information only, NOT a DME order): walker Other Treatments: incision care Patient's personal belongings (please select all that are sent with patient): Cellphone, clothing, shoes, knee immobilizer RN SIGNATURE: CASE MANAGEMENT/SOCIAL WORK SECTION Inpatient Status Date: Readmission Risk Assessment Score: Readmission Risk Risk of Unplanned Readmission: 5 Discharging to Facility/ Agency Name: Address: Phone: Fax: Dialysis Facility (if applicable) Name: Address: Dialysis Schedule: Phone: Fax: Nuclear Medicine Physician/[employer] I Assembler signature: {Esignature:[id number]} PHYSICIAN SECTION Prognosis: {Prognosis:4559737820} Condition at Discharge: { Patient Condition:593456396} Rehab Potential (if transferring to Rehab): {Prognosis:5727024250} Recommended Labs or Other Treatments After Discharge: Physician Certification: I certify the above information and transfer of Geeta Shelton is necessary for the continuing treatment of the diagnosis listed and that she requires {Admit to AppropriateLevel of Care:50312} for {GREATER/LESS:022677621} 30 days. Update Admission H&P: {CHP DME Changes in HandP:640543853} PHYSICIAN SIGNATURE: {Esignature:[id number]} * Attachments The following attachments cannot be sent through Care Everywhere. * Total Knee Replacement Surgery: General Info (Pakistani) * Wound: VAC (Vacuum-Assisted Closure) (Pakistani) [facility] Phone: [phone] History of Present illness Narrative* Sindy Pelaez RN - 06/24/2022 11:10 AM EST Yellow PAT and Dynahex instruction sheet reviewed with patient, who verbalized understanding. documented in this [facility] Phone: evaluation noteNo assessment information available [facility] Work Phone: Evaluation note* Diagnosis Status post revision of total knee replacement, right- Primary Status post revision of total replacement of right knee Acute postoperative pain Other acute postoperative pain documented in this encounter [facility] Phone: evaluation note* Diagnosis Onset Date Resolution Status MGUS (monoclonal gammopathy of unknown significance) acute Microcytosis acute Peripheral neuropathy acute [facility] Work Phone: Evaluation note* Diagnosis Onset Date Resolution Status MGUS (monoclonal gammopathy of unknown significance) acute Microcytosis acute Peripheral neuropathy acute MGUS (monoclonal gammopathy of unknown significance) acute [facility] Work Phone: History general Narrative - Reported* Type Description Date Medical History asthma Medical History snoring Medical History Allergic Rhinitis Medical History Essential Hypertension Surgical History Revise/Replace left knee joint Surgical History Varicose Veins 2010 Surgical History Right ankle surgery Hospitalization History See above [employer] Other History of Present illness Narrative* New patient to me 52-year-old female here for both knees mostly her right knee she states the rightknee been giving her trouble for quite some time recently she has had some soreness in her left knee she had a right unicondylar knee replacement in 2017 she had a left total knee replacement in 2014. She does not really remember what we are her surgeon did the operation or who her surgeon was but her right knee has been giving her trouble for quite some time she recently had some x-rays and a bone scan was told there was some bone rubbing on bone and some loosening she comes in today for consultation. She denies any fevers or chills denies any complications from her previous procedure. * Location of pain: Right knee greater than left knee mostly along the medial aspect * Quality of pain: Chronic pain for the last several years getting progressively worse * Modifying factors: Worse with weightbearing twisting or pivoting activity better with rest * Associated signs and symptoms: A lot of popping clicking grinding swelling no redness no drainage * Previous treatment: She is tried anti-inflammatory medications and extensive physical therapy without improvement * Past medical history * The patient's past medical history, family history, social history, and review of systems were documented on the patient's medical intake form. The medical intake form was reviewed and scanned into the electronic medical record for future use. History is otherwise negative except as stated in the HPI. * Physical exam * General: Alert and oriented to place, person, and time. No acute distress and breathing comfortably; pleasant and cooperative with the examination. * HEENT: Head is normocephalic and atraumatic. * Neck: Supple, no visible swelling. * Cardiovascular: Good perfusion to the affected extremity. * Lungs: No audible wheezing or labored breathing. * Abdomen: Nondistended * HEME/Lymph : No visible abnormalities bilateral lower extremity * Extremity: * Right knee has well-healed medial unicondylar knee incision good range of motion significant crepitus in the patellofemoral joint moderate varus valgus instability no signs of infection compartments are soft calf is nontender * Left knee has a well-healed midline incision lacks about 10 degrees of full extension has flexion to 95 no instability brisk cap refill compartments soft calf is nontender no signs of infection * Diagnostics: * She brought with her multiple imaging modalities on disc which were reviewed we did repeat her kneex-rays today please see dictated x-ray report * Procedures * [none ] * Assessment: * Failed unicondylar knee replacement right, left total knee replacement * Treatment plan: * 1. The natural history of the condition and its associated treatment alternatives including surgical and nonsurgical options were discussed with the patient at length. * 2. I reassured her everything looks okay as far as the left total knee replacement goes however bakari knee has subsidence and loosening of her medial unicondylar knee replacement as well as significant progression of her arthritis along the lateral and patellofemoral joint. I think her main issue is her right knee and she is having some compensatory difficulty with her left knee we discussed the possibility of revision total knee replacement on the right side. * 3. Patient has failed all forms of conservative treatment. The joint pain is significantly affecting quality of life and activities of daily living. * The patient has pain in the joint that is increased with activity and weightbearing, and walks withan antalgic gait. The pain is interfering with activities of daily living. Patient has limited range of motion and pain with passive range of motion. X-rays demonstrate joint space narrowing, subchondral sclerosis and osteophyte formation. Symptoms are not improving with medication, physical therapy or supportive device for a period of at least 3 months. * Patient would like to go and schedule joint replacement surgery. The procedure its risks, benefits,and treatment alternatives were discussed at length and patient would like to proceed. Patient is going to schedule the procedure at their earliest convenience and see me back for a preop visit just prior. Preadmission testing, medical checkup, and insurance authorization will be performed in the meantime. Patient understands a joint replacement surgery is a last resort, although a very successful operation results are not guaranteed. * 4. All of the patient's questions were answered. * This note was prepared using voice recognition software. The details of this note are correct and have been reviewed, and corrected to the best of my ability. Some grammatical areas may persist related to the [employer] software * Acosta Schafer MD * Senior Attending Physician * [facility] * . [facility] Work Phone: History of Present illness Narrative* New patient to me 52-year-old female here for both knees mostly her right knee she states the rightknee been giving her trouble for quite some time recently she has had some soreness in her left knee she had a right unicondylar knee replacement in 2017 she had a left total knee replacement in 2014. She does not really remember what we are her surgeon did the operation or who her surgeon was but her right knee has been giving her trouble for quite some time she recently had some x-rays and a bone scan was told there was some bone rubbing on bone and some loosening she comes in today for consultation. She denies any fevers or chills denies any complications from her previous procedure. * Location of pain: Right knee greater than left knee mostly along the medial aspect * Quality of pain: Chronic pain for the last several years getting progressively worse * Modifying factors: Worse with weightbearing twisting or pivoting activity better with rest * Associated signs and symptoms: A lot of popping clicking grinding swelling no redness no drainage * Previous treatment: She is tried anti-inflammatory medications and extensive physical therapy without improvement * Past medical history * The patient's past medical history, family history, social history, and review of systems were documented on the patient's medical intake form. The medical intake form was reviewed and scanned into the electronic medical record for future use. History is otherwise negative except as stated in the HPI. * Physical exam * General: Alert and oriented to place, person, and time. No acute distress and breathing comfortably; pleasant and cooperative with the examination. * HEENT: Head is normocephalic and atraumatic. * Neck: Supple, no visible swelling. * Cardiovascular: Good perfusion to the affected extremity. * Lungs: No audible wheezing or labored breathing. * Abdomen: Nondistended * HEME/Lymph : No visible abnormalities bilateral lower extremity * Extremity: * Right knee has well-healed medial unicondylar knee incision good range of motion significant crepitus in the patellofemoral joint moderate varus valgus instability no signs of infection compartments are soft calf is nontender * Left knee has a well-healed midline incision lacks about 10 degrees of full extension has flexion to 95 no instability brisk cap refill compartments soft calf is nontender no signs of infection * Diagnostics: * She brought with her multiple imaging modalities on disc which were reviewed we did repeat her kneex-rays today please see dictated x-ray report * Procedures * [none ] * Assessment: * Failed unicondylar knee replacement right, left total knee replacement * Treatment plan: * 1. The natural history of the condition and its associated treatment alternatives including surgical and nonsurgical options were discussed with the patient at length. * 2. I reassured her everything looks okay as far as the left total knee replacement goes however theright knee has subsidence and loosening of her medial unicondylar knee replacement as well as significant progression of her arthritis along the lateral and patellofemoral joint. I think her main issue is her right knee and she is having some compensatory difficulty with her left knee we discussed the possibility of revision total knee replacement on the right side. * 3. Patient has failed all forms of conservative treatment. The joint pain is significantly affecting quality of life and activities of daily living. * The patient has pain in the joint that is increased with activity and weightbearing, and walks withan antalgic gait. The pain is interfering with activities of daily living. Patient has limited range of motion and pain with passive range of motion. X-rays demonstrate joint space narrowing, subchondral sclerosis and osteophyte formation. Symptoms are not improving with medication, physical therapy or supportive device for a period of at least 3 months. * Patient would like to go and schedule joint replacement surgery. The procedure its risks, benefits,and treatment alternatives were discussed at length and patient would like to proceed. Patient is going to schedule the procedure at their earliest convenience and see me back for a preop visit just prior. Preadmission testing, medical checkup, and insurance authorization will be performed in the meantime. Patient understands a joint replacement surgery is a last resort, although a very successful operation results are not guaranteed. * 4. All of the patient's questions were answered. * This note was prepared using voice recognition software. The details of this note are correct and have been reviewed, and corrected to the best of my ability. Some grammatical areas may persist related to the [employer] software * Acosta Schafer MD * Senior Attending Physician * [facility] * . -[facility] Work Phone: History of Present illness Narrative* Pt is a 52 yo female presenting to the clinic for a pre-op appointment for a R TKA on 07/01/[address]William Schafer. Pt demonstrates decreased ROM and strength of the R knee causing pain and dysfunction with walking, standing, stairs, squatting, and STSs. Pt was given and reviewed surgical overview booklet including procedure, s/s of infection/blood clots, gait/transfers/stairs with AD, and HEP. Pt will be discharged due to attending post-op therapy at a different clinic. * Clinical Presentation: Stable and/or uncomplicated characteristics. * Level of Complexity: low * Problem List:. decreased knowledge of HEP, activity limitations, ADLs/IADLs/self care skills, flexibility, motor function/control/tone, pain, participation restrictions, range of motion/joint mobility, strength, posture, gait/locomotion, balance, coordination, fall risk, transfers, decreased knowledge of assisted device use, integumentary, decreased knowledge of precautions. * PT Pre-Op Assessment: * Additional Comments: Patient demonstrates independent knowledge and understanding of: anatomy, surgical procedure, post-operative exercise programs, signs and symptoms of post- operative infection and post - operative management of pain. * Patient demonstrates good safety awareness and modified independence with ambulation: 3-point gait pattern, with RW, WBAT weight bearing on R LE, on level surfaces and on stairs. * Handouts Given: surgical overview booklet, post-operative exercises and gait training instructions. * Plan of Care: Patient will be placed on hold for therapy until after completion of surgical procedure. Upon return to therapy, patient's status will be re-assessed and goals updated. [facility] Work Phone: History of Present illness Narrative* Pt is a 52 yo female presenting to the clinic for a pre-op appointment for a R TKA on 07/01/[address]William Schafer. Pt demonstrates decreased ROM and strength of the R knee causing pain and dysfunction with walking, standing, stairs, squatting, and STSs. Pt was given and reviewed surgical overview booklet including procedure, s/s of infection/blood clots, gait/transfers/stairs with AD, and HEP. Pt will be discharged due to attending post-op therapy at a different clinic. * Clinical Presentation: Stable and/or uncomplicated characteristics. * Level of Complexity: low * Problem List:. decreased knowledge of HEP, activity limitations, ADLs/IADLs/self care skills, flexibility, motor function/control/tone, pain, participation restrictions, range of motion/joint mobility, strength, posture, gait/locomotion, balance, coordination, fall risk, transfers, decreased knowledge of assisted device use, integumentary, decreased knowledge of precautions. * PT Pre-Op Assessment: * Additional Comments: Patient demonstrates independent knowledge and understanding of: anatomy, surgical procedure, post-operative exercise programs, signs and symptoms of post- operative infection and post - operative management of pain. * Patient demonstrates good safety awareness and modified independence with ambulation: 3-point gait pattern, with RW, WBAT weight bearing on R LE, on level surfaces and on stairs. * Handouts Given: surgical overview booklet, post-operative exercises and gait training instructions. * Plan of Care: Patient will be placed on hold for therapy until after completion of surgical procedure. Upon return to therapy, patient's status will be re-assessed and goals updated. [facility] Work Phone: History of Present illness Narrative* History of present illness * 52-year-old female nearly 3 months out from her revision right total knee replacement is doing verywell with her left knee that is actually giving her more trouble than anything else the right knee is coming along well she has a cane with her today she states she does not use it all the time no fevers or chills no numbness or tingling no locking or giving way. * Physical exam * General: No acute distress and breathing comfortably. Patient is pleasant and cooperative with the examination. * Extremity * Right knee has a well-healed midline incision range of motion 0-1 10 no instability brisk cap refill compartments soft calf is nontender * Diagnostics * See dictated x-ray report * Procedure * [ none] * Assessment * Healing revision total knee and right * Treatment plan * 1. Continue working on range of motion strengthening continue with her exercise program follow-up with me in 3 months at that time for left knees continue to give her trouble we will repeat x-rays onthe left side. She does have a total knee on the left side does not appear that they resurfaced the patella. * 2. [ ] * 3. [ ] * 4. All of the patient's questions were answered. * This note was prepared using voice recognition software. The details of this note are correct and have been reviewed, and corrected to the best of my ability. Some grammatical areas may persist related to the [employer] software * Acosta Schafer MD * Senior Attending Physician * [facility] * . -[facility] Work Phone: History of Present illness Narrative* History of present illness * 52-year-old female presented clinic today for follow-up evaluation status post right total knee revision. She is proximately 6 months postop at this time doing much better. She states that occasionally her left knee gets swollen but this does not last very long. She notices overall improvement withfunction and pain. Very pleased with the outcome thus far. * Physical exam * General: No acute distress and breathing comfortably. Patient is pleasant and cooperative with the examination. * Extremity * Right knee is neurovascular intact. Good range of motion 0 to 115 degrees. 2+ pulses bilateral lower extremity. Cap refill lowness distally. No edema ecchymosis erythema seen. No instability on exam.Incisions well-healed without abnormality or infection. Compartments soft. No signs of DVT. * Diagnostics * [ none] * Procedure * [ none] * Assessment * Status post right total knee revision * Treatment plan * 1. At this time she will continue weightbearing activity as tolerated. * 2. She was encouraged to continue with her home exercise program. We will also go ahead and prescribe pair of bilateral knee-high compression socks for her mild swelling left lower extremity and her varicose veins. * 3. She will follow with us approximately 6 months with new x-rays right knee at that time for 1 year check. * 4. All of the patient's questions were answered. * This note was prepared using voice recognition software. The details of this note are correct and have been reviewed, and corrected to the best of my ability. Some grammatical areas may persist related to the [employer] software * Merrill Alejandro PA-C * . -[facility] Work Phone: Progress note Author Krzysztof Salazar [facility] September 21, 2022 9:52am Note Date/Time September 21, 2022 9:49a m [facility] at [address] [address] Hem/Onc Follow Up Note - OP Signed Patient: Geeta Shelton MR#: [id number] : 1970 Acct:[id number] Age/Sex: 52 / F Type: REG RCR Copies to: Elizabeth Alvarado,BEATER TENDER,MANAGER INSIDE Lorrie Baig,DO~ Date of Service: 09/21/2022 Time of Service: 09:48 - Assessment & Plan (1) MGUS (monoclonal gammopathy of unknown significance) Plan: Geeta is a 52 year old female who was incidentally found to have an asymmetrical gamma; suspicious for the presence of monoclonal immunoglobulin on SPEP drawn at the time of work up for polyneuropathy. Labs from 07/23/2022 are reviewed; B12, folate normal. ESR elevated at 65. No history of renal insufficiency and/or diabetes. Mildly elevated transaminases; patient with confirmed fatty liver disease on prior liver ultrasound. mid 2022 we checked quant Igg, she had slight elevated igA and igG. normal K/L ratio. unclear whether or not she had serum monoclonal protein on immunofixation. Mspike was 0. Given the abnormalities noted on serum protein electrophoresis, in combination with peripheral neuropathy, we will obtain further testing/work-up. Presently, the patient does not have any evidence of CRAB (no hypercalcemia, renal insufficiency, anemia or bony lesions). Patient had nuclear medicine bone scan in November 2021 after failed right knee replacement that required repeat surgery in June 2022. There was no mention of abnormal bony lytic lesions on imaging and patient is without complaints or focal areas of bony pain. Iron deficiency is severe, i have offered her an iron tablet every other day ferrous sulfate 325mg po every other day. (2) Peripheral neuropathy (3) Microcytosis Follow Up Instructions: ferrous sulfate 325mg po every other day. cbc, cmp, iron studies, spep, sflc simmunofixation in 6 months and prior to f/u in 1 year - History of Present Illness Chief Complaint: Patient is here for a 1 month follow up, initially seen by Zoey. Had labs 08/17/22, voices no concerns at this time. HPI: Dear Dr. Baig, I have seen your patient in consultation and would like to thank you for the courtesy of your referral. As you know, Geeta Shelton is a 52-year-old lady with a past medical history significant for: Asthma, anxiety, peripheral neuropathy, osteoarthritis, chronic low back pain, gait ataxia (has utilized a cane on and off over the past few years) and fatty liver. Surgical history is notable for bilateral knee replacement; left knee replaced in 2011; right knee replaced in 2019?with recent revision on 07/01/2022. The patient also reports a remote history of iron deficiency?previously on oral iron supplementation several years ago. She reports that this was largely in part due to heavy menstrual periods. She is now postmenopausal. She has been referred to our outpatient hematology clinic in regards to an incidental finding of an asymmetrical gamma; suspicious for the presence of monoclonal immunoglobulin on SPEP drawn at the time of work up for polyneuropathy. Labs from 07/23/2022 are reviewed; vitamin D 12 was at the low end of normal?358; folate?12.8; TSH within normal range at 4.76; CK?51; magnesium 1.8; phosphorus 4.5; ESR elevated at 65. Reviewed CBC and chemistry panel from 05/07/2022. WBC count?7.9; hemoglobin 14.1; hematocrit 45.4; platelet count 242,000. Mild microcytosis -MCV 79.4; elevated RDW?17.8. Relatively unremarkable chemistry panel; normal electrolytesand renal function. No history of renal insufficiency and/or diabetes. Mildly elevated transaminases; patient with confirmed fatty liver disease on prior liver ultrasound. Patient specifically denies any issues with headaches, vision changes, excessivefatigue, fever/chills, recent/recurrent infections, unintentional weight loss, night sweats, lymphadenopathy, chest pain, shortness of breath, nausea/vomiting,abdominal pain, early satiety, bowel/bladder problems, melena, hematochezia, bright red blood per rectum, hematuria, skin rash, easy bruising/bleeding, lowerextremity edema or focal bony pain. She is a lifelong non-smoker; denies alcohol or recreational drug use. No personal or family history of malignancy and/or blood disorder. No history of thrombosis. 09/21/22 we checked quant Igg, she had slight elevated igA and igG. normal K/L ratio. unclear whether or not she had serum monoclonal protein on immunofixation. Mspike was 0. no new complaints. - Physical Exam PHYSICAL EXAMINATION: GENERAL: Alert, no acute distress. HEENT: Head is normocephalic, atraumatic. No scleral icterus. Oral mucosa is pink and moist. No lesions or exudate. NECK: Supple without adenopathy or thyromegaly. HEART: Regular rate and rhythm. S1 and S2 normal. LUNGS: Lungs clear to auscultation bilaterally. No wheezes or crackles. ABDOMEN: Abdomen soft, obese, nontender, nondistended. No hepatosplenomegaly. Bowel sounds present x4 quadrants. BACK: Limited ROM; No CVA tenderness. EXTREMITIES: Warm and dry. Trace LE edema, no clubbing or cyanosis. NEUROLOGICAL: Decreased sensation in bilateral lower extremities; muscle strength 5/5 in extremities x 4; no focal weakness. Reports of gait ataxia and cane usage in thepast. Patient is ambulatory with no use of cane today; gait is slow but normal/steady. The patient is alert and oriented x3 - Time with Patient Coordination of Care & Counseling Time: Greater than 50% of time spent with patient was for coordination of care (as documented) and [id number] counseling of patient and/or family. [facility] - Medical History Medical History: Medical History (Last Updated 08/13/22 @ 13:21 by Jayla Simon) Anxiety Asthma Hypertension - Surgical History Surgical History: Surgical History (Last Updated 08/13/22 @ 13:18 by Jayla Simon) History of total right knee replacement - Family History Family History: Family History (Last Updated 08/13/22 @ 13:20 by Jayla Simon) Mother Hypercholesterolemia Asthma Father Diabetes Hypertension - Social History Smoking Status: Never smoker Substance Use Type: None Additional Data - Additional Objective Data Height/Weight: Height 5 ft 5 in Weight 128.73 kg Vital Signs: 09/21/22 09:11 Pulse Rate [Left Brachial] 88 Respiratory Rate 20 Blood Pressure [Left Arm] 145/91 H 02 Sat by Pulse Oximetry 96 Oxygen Delivery Method Room Air - Lab Results Diagram of Most Recent CBC and CMP 08/17/22 11:26 08/17/22 11:26 - Home Medications and Allergies Allergies/Adverse Reactions: Allergies Penicillins Allergy (Verified 08/16/22 13:52) Hives ibuprofen [From Motrin] Adverse Reaction (Verified 08/16/22 13:52) Unknown Reaction Home Medications: Home Medications albuterol sulfate 90 mcg/actuation aerosol inhaler 2 puff inhalation Q4-6H PRN Shortness Of Breath Or Wheezing 08/13/22 [History Confirmed 09/21/22] celecoxib 200 mg capsule 200 mg PO DAILY 08/13/22 [History Confirmed 09/21/22] cyclobenzaprine 10 mg tablet 10 mg PO HS 08/13/22 [History Confirmed 09/21/22] hydroxyzine HCl 50 mg tablet 50 mg PO QHS PRN Itching 08/13/22 [History Confirmed 09/21/22] mometasone-formoterol HFA 200 mcg-5 mcg/actuation aerosol inhaler (Dulera) 2 puff inhalation Q12H 08/13/22 [History Confirmed 09/21/22] ropinirole 2 mg tablet 2 mg PO BID 08/13/22 [History Confirmed 09/21/22] solifenacin 10 mg tablet 10 mg PO DAILY 08/13/22 [History Confirmed 09/21/22] venlafaxine 75 mg tablet,extended release 24 hr 75 mg PO DAILY 08/13/22 [History Confirmed 09/21/22] Dictated By: Krzysztof Salazar II, DO DD/ 0948 Signed By: <Electronically signed by Krzysztof Salazar II, DO> 09/21/22 0952 [facility] Work Phone: Reason for visit Narrative* Initial Evaluation, Pre-Op . * [facility] Work Phone: Reason for visit Narrative* Initial Evaluation, Pre-Op . * Referred by: Dr. Acosta Schafer [facility] Work Phone: Summary Purpose Family History No Family History Records Found Relationship Condition Age at Onset Recorded Date/T sylvester Not Specified Hypercholesterolemia Unknown Asthma Unknown father Diabetes mellitus Unknown Hypertension Unknown Relationship Condition Age at Onset Recorded Date/T sylvester Not Specified Hypercholesterolemia Unknown Asthma Unknown father Diabetes mellitus Unknown Hypertension Unknown father Unknown Heart disease Unknown Diabetes mellitus Unknown Advance Directives No Advanced Directives Records Found Advance Directive Response Recorded Date/ Time Advance Directives No December 11:18am Advance Directive Response Recorded Date/ Time Advance Directives No December 10:18am Latest Code Status on File Code Status Date Activated Date Inactivated Comments Full Code 07/01/2022 3:02 PM Chief Complaint and Reason for Visit Chief Complaint R23.2 Throat Tightness m25.562 m25.561 Chief Complaint m25.562 m25.561 Chief Complaint I10 R20.0 Chief Complaint R20.0 MK TKA Abnormal SPEP Reason for Visit MGUS (monoclonal precious mopathy of unknown significance) Microcytosis Peripheral neuropathy Chief Complaint J45.40 J45.40 Chief Complaint J45.40 J45.40 leg swelling Chief Complaint leg swelling Screening Chief Complaint Type 2 diabetes casimiro itus without complication, wit Chief Complaint E11.9 E11.9 N93.9 Abnormal SPEP Follow Up Reason for Visit MGUS (monoclonal precious mopathy of unknown significance) Microcytosis Peripheral neuropathy MGUS (monoclonal gammopathy of unknown significance) Chief Complaint new patient. bilat knee pain. xrays today.new patient. bilat knee pain. xrays today.* POV * Rt TK-Revision * DOS: 07/01/22, 2 weeks out * xrays today * R tTK-Revision * DOS: 07/01/22 * xrays today * R tTK-Revision * DOS: 07/01/22 Reason for Referral Specialty Diagnoses / Procedures Referred By Swapna rich Referred To Contact Diagnoses Status post revision of total replacement of right knee Born, Arya Harry, [employer] - [facility] [address] [place] [address] Referral ID Status Reason Start Date Expiration Date V isits Requested Visits Authorized [id number] Open Specialty Services Required 07/01/2022 07/01/2023 1 1 Question Answer I certify that I, or a nurse practitioner or physician diagnostic assistant working with me, had an in-person encounter with the patient and the reason for the home care services is documented in the clinical note on: 07/01/2022 Will the referring provider be the attending provider for home health? [place] of attending provider for home health Dr. Schafre The patient is confined to home: Due to illness or injury that necessitates supportive device aid, use of special transportation, or assistance of another person to leave home, AND there is a normal inability to leave home, AND leaving home requires considerable taxing effort Patient requires the following home health services Physical Therapy, Occupational Therapy Comments Certification and medical necessity: I certify that, based on my findings, the following services are medically necessary home health services for Geeta Shelton for the following reasons: - Consult Physical Therapy for Evaluate and Treat - Consult Occupational Therapy for Evaluate and Treat Additional Source Comments INFORMATION SOURCE (unrecogn ized section and content) DATE CREATED AUTHOR 02/01/2019 Rober Baumann [facility] DATE CREATED AUTHOR AUTHOR'S ORGANIZ ATION 07/04/2022 [facility] DATE CREATED AUTHOR AUTHOR'S ORGANIZ ATION 07/08/2022 [facility] DATE CREATED AUTHOR AUTHOR'S ORGANIZ ATION 12/30/2022 [facility] DATE CREATED AUTHOR AUTHOR'S ORGANIZ ATION 01/09/2023 [facility] DATE CREATED AUTHOR AUTHOR'S ORGANIZ ATION 10/19/2023 [facility] Care Teams (unrecognized sec tion and content) Team Status: Active Member Role Status Dates Elizabeth Alvarado APRN FACILITY SERVICE ASSOCIATE-C Primary Care Provide r Active Team Status: Inactive Member Role Status Dates Elizabeth Alvarado APRN FACILITY SERVICE ASSOCIATE-C Primar y Care Provider, Attending Provider Active Team Status: Inactive Member Role Status Dates Elizabeth Alvarado APRN FACILITY SERVICE ASSOCIATE-C Primary Care Provide r Active Lorrie Baig DO Attending Provider Active Team Status: Inactive Member Role Status Dates Elizabeth Alvarado APRN FACILITY SERVICE ASSOCIATE-C Primary Care Provide r Active JEREMIAS Cavazos-C Attending Provider Active Team Status: Inactive Member Role Status Dates Elizabeth Alvarado APRN FACILITY SERVICE ASSOCIATE-C Attending Provider A ctive Services [facility] Primary Care Provider Active Brewery Representative Relationship Specialty Start Date End Date Elizabeth Alvarado PCP - General 07/01/22 Team Status: Active Member Role Status Dates Elizabeth Alvarado APRN FACILITY SERVICE ASSOCIATE-C Primary Care Provide r Active Zoey Ramirez APRN Attending Provider Active Lorrie Baig DO Referring Provider Active Team Status: Inactive Member Role Status Dates Elizabeth Alvarado APRN FACILITY SERVICE ASSOCIATE-C Primary Care Provide r Active Acosta Schafer Attending Provider Active Team Status: Inactive Member Role Status Dates Elizabeth Alvarado APRN FACILITY SERVICE ASSOCIATE-C Primary Care Provide r Active Sindy Davila NP-C Attending Provider Active Team Status: Inactive Member Role Status Dates Elizabeth Alvarado APRN FACILITY SERVICE ASSOCIATE-C Attending Provider A ctive Start: August 24, 2023 End: August 24, 2023 Team Status: Active Member Role Status Dates PHYSICIAN NO FAMILY Primary Care Provider Active Team Status: Inactive Member Role Status Dates Elizabeth Alvarado APRN FACILITY SERVICE ASSOCIATE-C Attending Provider A ctive Start: September 07, 2023 End: September 07, 2023 PHYSICIAN AKASH FAMILY Primary Care Provider Active Start: September 07, 2023 End: September 07, 2023 Team Status: Active Member Role Status Dates Elizabeth Alvarado APRN FACILITY SERVICE ASSOCIATE-René Primary Care Provide r Active Start: September 30, 2023 Zoey Ramirez APRN Active Start: September 30, 2023 Lorrie Baig DO Referring Provider Active Sta rt: September 30, 2023 Krzysztof Salazar II, DO Attending Provider Active Start: September 30, 2023 Team Status: Inactive Member Role Status Dates Elizabeth Alvarado APRN FACILITY SERVICE ASSOCIATE-René Primary Care Provide r Active Start: September 30, 2023 End: September 30, 2023 DanielaElizabeth Soriano APRN Attending Provider Acti ve Start: September 30, 2023 End: September 30, 2023 Goals (unrecognized section and content) Goals may be documented in a n alternate sectionGoals may be documented in an alternate sectionGoals may be documented in an alternate sectionGoals may be documented in an alternate sectionGoals may be documented in an alternate sectionGoals may be documented in an alternate sectionNo InformationGoals may be documented in an alternate sectionNo InformationGoals may be documented in an alternate sectionGoals may be documented in an alternate sectionGoals may be documented in an alternate section Reason for Visit (unrecogniz ed section and content) Specialty Diagnoses / Procedures Referred By Contcarmen t Referred To Contact Diagnoses 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 MA REVJ TOTAL KNEE ARTHRP W/WO ALGRFT 1 COMPONENT MA REVJ TOT KNEE ARTHRP FEM&ENTIRE TIBIAL COMPONE RIGHT KNEE RIGHT TOTAL KNEE REVISION INSTRUMENTATION ANTONELLA FEMORAL & SCIATIC BLOCK Acosta Schafer MD [address] [place] [address] [facility] [address] [place] [address] Referral ID Status Reason Start Date Expiration Date Visits Re quested Visits Authorized [id number] 1 1 Ordered Prescriptions (unrec ognized section and content) Prescription Sig Dispensed Refills Start Date End Da te XARELTO 20 MG TABS tablet Take 1 tablet by mouth daily (with breakfast) for 28 days Take half tablet by mouth 10 mg once daily for 28 days 28 tablet 0 07/02/2022 07/30/2022 sennosides-docusate sodium (SENOKOT-S) 8.6-50 MG tablet Take 1 tablet by mouth 2 times daily for 10 days 20 tablet 0 07/02/2022 07/12/2022 oxyCODONE (ROXICODONE) 5 MG immediate release tabletIndications:Acute postoperative pain Take 1 tablet by mouth every 4 hours as needed for Pain for up to 7 days. Max Daily Amount: 30 mg 28 tablet 0 07/02/2022 07/09/2022 Scheduled Active and Recently Administ ered Medications (unrecognized section and content) Medication Order 07/01/2022 07/02/2022 07/03/2022 acetaminophen (TYLENOL) tablet 1,000 mg (COMPLETED) 1,000 mg, Oral, ONCE, 1 dose, On Renee 07/01/22 at 0845, Maximum dose of acetaminophen is 4000 mg from all sources in 24 hours., Pre-op (day of surgery) 0904 (Given - Provider: Rodolfo Chacko RN) acetaminophen (TYLENOL) tablet 650 mg 650 mg, Oral, EVERY 6 HOURS, First dose on Renee 07/01/22 at 1600, Until Discontinued, Maximum dose of acetaminophen is 4000 mg from all sources in 24 hours., Post-op 1637 (Given - Provider: Ozzie Carpenter RN)2231 (Given - Provider: Fouzia Ramos RN) 0603 (Given - Provider: Fouzia Ramos RN)1254 (Given - Provider: Sosa Poon RN)1804 (Given - Provider: Sosa Poon RN)2058 (Given - Provider: Stefany Valdes RN) 0353 (Not Given - Provider: Stefany Valdes RN - Reason: Other - Comment: alternate pain medication given per pt request)0812 (Given - Provider: Sosa Poon RN)1600 (Due)2200 (Due) aspirin EC tablet 81 mg (CANCELED) 81 mg, Oral, 2 TIMES DAILY, First dose on Renee 07/01/22 at 2100, Until Discontinued, Do not crush or break., Post-op 2230 (Given - Provider: Fouzia Ramos RN) 09 (Given - Provider: Sosa Poon, KIP) budesonide-formoterol (SYMBICORT) 160-4.5 MCG/ACT inhaler 2 puff 2 puff, Inhalation, 2 TIMES DAILY, First dose on Renee 07/01/22 at 2000, Until Discontinued, Substituted for mometasone-formoterol (DULERA). 2037 (Given - Provider: Joy Og RCP) 1909 (Not Given - Provider: Joy Og RCP - Reason: Other)1917 (Given - Provider: Joy Og RCP)1919 (Not Given - Provider: Joy Og RCP - Reason: Other) 0733 (Given - Provider: Lizzie Aponte RCP)1999 (Due) celecoxib (CELEBREX) capsule 200 mg (COMPLETED) 200 mg, Oral, ONCE, 1 dose, On Renee 07/01/22 at 0845, Pre-op, Pre-op (day of surgery) 0905 (Given - Provider: Rodolfo Chacko RN) ketorolac (TORADOL) injection 30 mg (COMPLETED) 30 mg, IntraVENous, EVERY 6 HOURS, 3 doses, First dose on Tue07/01/22 at 1800, Last dose on Tue07/02/22 at 0600, Do not administer for more than 5 days., Post-op 1825 (Given - Provider: Ozzie Carpenter RN) 0020 (Given - Provider: Fouzia Ramos RN)0629 (Given - Provider: Fouzia Ramos RN) montelukast (SINGULAIR) tablet 10 mg 10 mg, Oral, DAILY, First dose on Renee 07/01/22 at 1545, Until Discontinued 1638 (Given - Provider: Ozzie Carpenter RN) 09 (Given - Provider: Sosa Poon, KIP) 0812 (Given - Provider: Sosa Poon RN) oxyCODONE (OXYCONTIN) extended release tablet 10 mg (COMPLETED) 10 mg, Oral, ONCE, 1 dose, On Renee 07/01/22 at 0845, Do not crush or break., Pre-op (day of surgery) 09 (Given - Provider: Rodolfo Chacko RN) rivaroxaban (XARELTO) tablet 10 mg 10 mg, Oral, DAILY, First dose on Tue07/02/22 at 1800, Until Discontinued, Indication of Use: Post-Op Knee/Hip, 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 Doses of GREATER THAN or EQUAL to 15 mg/day must be administered with food. 1802 (Given - Provider: Sosa Poon RN) 1800 (Due) rOPINIRole (REQUIP) tablet 0.25 mg 0.25 mg, Oral, 2 times daily, First dose on Tue07/01/22 at 2100, Until Discontinued 2312 (Given - Provider: Fouzia Ramos RN) 902 (Given - Provider: Sosa Poon RN)2057 (Given - Provider: Stefany Vlades RN) 08 (Given - Provider: Sosa Poon RN)2099 (Due) sennosides-docusate sodium (SENOKOT-S) 8.6-50 MG tablet 1 tablet 1 tablet, Oral, 2 TIMES DAILY, First dose on Tue07/01/22 at 2100, Until Discontinued, Post-op 2230 (Given - Provider: Fouzia Ramos RN) 09 (Given - Provider: Sosa Poon RN)2057 (Not Given - Provider: Stefany Valdes RN - Reason: Patient/family refused) 08 (Held - Provider: Sosa Poon RN - Reason: Patient/family refused)2099 (Due) sodium chloride flush 0.9 % injection 5-40 mL 5-40 mL, IntraVENous, EVERY 12 HOURS SCHEDULED (2 times per day), First dose on Tue07/01/22 at 2100, Until Discontinued, For Line Patency: Peripheral IV = 5 mL; Midline or Central Line = 10 mL/lumen. If following IV push medication, administer flush at same rate as the IV push. Flush volume is determined by type of infusion therapy being given. For non-viscous solutions use: Peripheral IV = 5 mL Midline or Central Line = 10 mL/lumen For viscous solutions (i.e. blood components, parenteral nutrition, contrast media, or after obtaining blood sample) use: Peripheral IV = 10 mL Midline or Central Line = 20 mL/lumen, Post-op 2258 (Given - Provider: Fouzia Ramos RN) 09 (Held - Provider: Sosa Poon RN - Reason: IV Fluid Infusing)2100 (Given - Provider: Stefany Valdes RN) 0813 (Given - Provider: Sosa Poon RN)2100 (Due) tranexamic acid (LYSTEDA) tablet 1,950 mg (CANCELED) 1,950 mg, Oral, 90 MIN PRE-OP, Starting on Renee 07/01/22 at 0824, Until Renee 07/01/22 at 1321, To be given 90 minutes prior to surgery, Pre-op (day of surgery) 0905 (Given - Provider: Rodolfo Chacko RN) tranexamic acid (LYSTEDA) tablet 1,950 mg (COMPLETED) 1,950 mg, Oral, ONCE, 1 dose, On Tue07/02/22 at 0600, Do not crush or break. Administer POD1 at 0600. 0603 (Given - Provider: Fouzia Ramos RN) tranexamic acid (LYSTEDA) tablet 1,950 mg (COMPLETED) 1,950 mg, Oral, ONCE, 1 dose, On Renee 07/01/22 at 1700, Do not crush or break. Administer 8 hours from pre-op dose., Post-op 1637 (Given - Provider: Ozzie Carpenter RN) vancomycin (VANCOCIN) 2,000 mg in sodium chloride 0.9 % 500 mL IVPB (COMPLETED) 2,000 mg, IntraVENous, EVERY 12 HOURS, 1 dose, First dose on Renee 07/01/22 at 2200, Antimicrobial Indications: Surgical Prophylaxis, Post-op 225 (New Bag - Provider: Fouzia Ramos RN) 0125 (Stopped - Provider: Fouzia Ramos RN) vancomycin 1000 mg IVPB in 250 mL NS addavial (COMPLETED) 1,000 mg, IntraVENous, at 250 mL/hr, Administer over 60 Minutes, SOCIAL MEDIA SENIOR ASSOCIATE TO O.R., On Renee 07/01/22 at 0845, For 1 dose, Pre-op (day of surgery) 1018 (New Bag - Provider: Rodolfo Chacko RN - Comment: per to start)1118 (Stopped - Provider: Shivani Scott RN) venlafaxine (EFFEXOR XR) extended release capsule 75 mg 75 mg, Oral, DAILY, First dose on Renee 07/01/22 at 1545, Until Discontinued, Do not crush or break. 1637 (Given - Provider: Ozzie Carpenter RN) 0903 (Given - Provider: Sosa Poon, KIP) 0812 (Given - Provider: Sosa Poon RN) Continuous Medication Order 07/01/2022 07/02/2022 07/03/2022 lactated ringers IV soln infusion () IntraVENous, at 50 mL/hr, CONTINUOUS, Starting on Renee 07/01/22 at 1530, For 24 hours, Post-op 1617 (Rate/Dose Change - Provider: Ozzie Carpenter RN) 1257 (Stopped - Provider: Sosa Poon RN - Comment: pt requested fluids to be stopped now, eating and drinking well) lactated ringers IV soln infusion (CANCELED) IntraVENous, at 100 mL/hr, CONTINUOUS, Starting on Renee 07/01/22 at 0945, Pre-op (day of surgery) 1011 (New Bag - Provider: Rodolfo Chacko RN)1100 (NoRateChange - Provider: Yang Mccollum APRN - TOMMIE)1311 (Anesthesia Volume Adjustment - Provider: RHEA Adrian FARMWORKER DAIRY)1324 (Anesthesia Volume Adjustment - Provider: RHEA Adrian CRNA) lactated ringers IV soln infusion IntraVENous, at 125 mL/hr, CONTINUOUS, Starting on Renee 07/01/22 at 1330, PACU only 1617 (Stopped - Provider: Ozzie Carpenter RN) PRN Medication Order 07/01/2022 07/02/2022 07/03/2022 0.9 % sodium chloride infusion IntraVENous, at 5-250 mL/hr, PRN, if patient receiving piggyback infusions and maintenance fluids are not ordered OR KVO fluids to protect IV site / prevent frequent line interruptions/ long duration, Starting on Renee 07/01/22 at 1502, For piggyback infusion, administer at same rate as piggyback for a total of 25 mL. Enter 25 mL into dose field and piggyback rate into rate field of order. If piggyback is infusing at a rate less than 100 mL/hr, enter 25 mL into dose field and 100 mL/hr into rate field of order. For KVO fluids, enter rate of 20 mL/hr or less into rate field of order., Post-op albuterol (PROVENTIL) nebulizer solution 2.5 mg 2.5 mg, Nebulization, EVERY 6 HOURS PRN, Starting on Renee 07/01/22 at 1521, Until Discontinued, Wheezing, Initiate RT Bronchodilator Protocol: Yes - Inpatient Protocol cyclobenzaprine (FLEXERIL) tablet 10 mg 10 mg, Oral, 3 TIMES DAILY PRN, Starting on Renee 07/01/22 at 1502, Until Discontinued, Muscle spasms 2231 (Given - Provider: Fouzia Ramos RN) 0903 (Given - Provider: Sosa Poon RN) 1158 (Given - Provider: Sosa Poon RN) mastisol adhesive LIQD (CANCELED) PRN, Starting on Renee 07/01/22 at 1304, Intra-op 1304 (Given - Provider: Acosta Schafer MD) morphine (PF) injection 2 mg 2 mg, IntraVENous, EVERY 3 HOURS PRN, Starting on Renee 07/01/22 at 1502, Until Discontinued, Pain Severe (7-10), If oral and IV narcotics ordered, use oral first and only use IV if oral is ineffective or cannot take oral. Do Not give oral and IV within 1 hour of each other unless specifically ordered., Post-op 2228 (Given - Provider: Fouzia Ramos RN) ondansetron (ZOFRAN) injection 4 mg(Linked Group 1) 4 mg, IntraVENous, EVERY 6 HOURS PRN, Starting on Renee 07/01/22 at 1502, Until Discontinued, Nausea, Vomiting, Administer if oral route cannot be used., Post-op ondansetron (ZOFRAN-ODT) disintegrating tablet 4 mg(Linked Group 1) 4 mg, Oral, EVERY 8 HOURS PRN, Starting on Renee 07/01/22 at 1502, Until Discontinued, Nausea, Vomiting, Post-op oxyCODONE (ROXICODONE) immediate release tablet 10 mg(Linked Group 2) 10 mg, Oral, EVERY 4 HOURS PRN, Starting on Renee 07/01/22 at 1502, Until Discontinued, Pain Severe (7-10), Post-op 1857 (See Alternative - Provider: Ozzie Carpenter RN) 0235 (Given - Provider: Fouzia Ramos RN)0602 (See Alternative - Provider: Fouzia Ramos RN)1254 (See Alternative - Provider: Sosa Poon RN)1803 (See Alternative - Provider: Sosa Poon RN) 0354 (Given - Provider: Stefany Valdes RN)0813 (See Alternative - Provider: Sosa Poon RN) oxyCODONE (ROXICODONE) immediate release tablet 5 mg(Linked Group 2) 5 mg, Oral, EVERY 4 HOURS PRN, Starting on Renee 07/01/22 at 1502, Until Discontinued, Pain Moderate (4-6), Post-op 1857 (Given - Provider: Ozzie Carpenter RN) 0235 (See Alternative - Provider: Fouzia Ramos RN)0602 (Given - Provider: Fouzia Ramos RN)1254 (Given - Provider: Sosa Poon RN)1803 (Given - Provider: Sosa Poon RN) 0354 (See Alternative - Provider: Stefany Valdes RN)0813 (Given - Provider: Sosa Poon RN) polyethylene glycol (GLYCOLAX) packet 17 g 17 g, Oral, DAILY PRN, Starting on Renee 07/01/22 at 1502, Until Discontinued, Constipation, First line therapy for constipation, Post-op sod chloride IRR soln 0.9 % irrigation (CANCELED) CONTINUOUS PRN, Starting on Renee 07/01/22 at 1307, Intra-op 1255 (New Bag - Provider: Acosta Schafer MD - Comment: table irrigation)1257 (New Bag - Provider: Acosta Schafer MD - Comment: table irrigation)1307 (New Bag - Provider: Acosta Schafer MD) sodium chloride (PF) 0.9 % 18 mL with ketorolac (TORADOL) 30 MG/ML 30 mg, morphine 10 mg, ropivacaine (NAROPIN) 0.5% 30 mL (CANCELED) PRN, Starting on Renee 07/01/22 at 1302, Intra-op 1302 (Given - Provider: Acosta Schafer MD) sodium chloride flush 0.9 % injection 5-40 mL 5-40 mL, IntraVENous, PRN, Starting on Renee 07/01/22 at 1502, Until Discontinued, Line Care, After every IV line use, For Line Patency: Peripheral IV = 5 mL; Midline or Central Line = 10 mL/lumen. If following IV push medication, administer flush at same rate as the IV push. Flush volume is determined by type of infusion therapy being given. For non-viscous solutions use: Peripheral IV = 5 mL Midline or Central Line = 10 mL/lumen For viscous solutions (i.e. blood components, parenteral nutrition, contrast media, or after obtaining blood sample) use: Peripheral IV = 10 mL Midline or Central Line = 20 mL/lumen, Post-op Linked Groups Order Group 1: ondansetron (ZOFRAN-ODT) disintegrating tablet 4 mgJump to med 4 mg, Oral, EVERY 8 HOURS PRN, Starting on Renee 07/01/22 at 1502, Until Discontinued, Nausea, Vomiting, Post-op Or ondansetron (ZOFRAN) injection 4 mgJump to med 4 mg, IntraVENous, EVERY 6 HOURS PRN, Starting on Rneee 07/01/22 at 1502, Until Discontinued, Nausea, Vomiting
Administer if oral route cannot be used.
Post-op Group 2: oxyCODONE (ROXICODONE) immediate release tablet 5 mgJump to med 5 mg, Oral, EVERY 4 HOURS PRN, Starting on Renee 07/01/22 at 1502, Until Discontinued, Pain Moderate (4-6), Post-op Or oxyCODONE (ROXICODONE) immediate release tablet 10 mgJump to med 10 mg, Oral, EVERY 4 HOURS PRN, Starting on Renee 07/01/22 at 1502, Until Discontinued, Pain Severe (7-10), Post-op FOR RECORDS PERTAINING TO PATIENTS WHO ARE OR HAVE BEEN ENROLLED IN A CHEMICAL DEPENDENCY/SUBSTANCEABUSE PROGRAM, SOME INFORMATION MAY BE OMITTED. This clinical summary was aggregated from multiple sources. Caution should be exercised in using it in the provision of clinical care. This summary normalizes information from multiple sources, and as a consequence, information in this document may materially change the coding, format and clinical context of patient data. In addition, data may be omitted in some cases. CLINICAL DECISIONS SHOULD BE BASED ON THE PRIMARY CLINICAL RECORDS. [facility]. provides no warranty or guarantee of the accuracy or completeness of information in this document.
== END 2023-12-30 08:55 | disposition home or self-care (01) ==
LOC: EC 08:55
PROVIDERS: Visit Provider Podiatrist Foot & Ankle Surgery
DX: M25.572 Pain in left ankle and joints of left foot (principal); M25.571 Pain in right ankle and joints of right foot; M21.612 Bunion of left foot; M21.611 Bunion of right foot
CPT/HCPCS: 73610; 73630

== ENCOUNTER 2024-01-06 08:37 | Outpatient (OUT) | payer OTHER, SELFPAY ==
--- NOTE | 2024-01-06 | XR_ITS ---
The [address] [address] Patient Name: GEETA VANCE MRN: [id number] date: 1970 Sex: F Assigned Patient Location: Current Patient Location: Accession/Order Number: [id number] Exam Date: 01/06/2024 08:40 Report Date: 01/07/2024 09:14 At the request of: HILDA RUELAS Procedure: XR calcaneus LT min 2V PROCEDURE: XR calcaneus LT min 2V HISTORY: LEFT FOOT PAIN COMPARISON: XR foot bilateral 12/30/2023 FINDINGS: BONES:Prior fracture of calcaneal degenerative enthesophyte at the Achilles tendon insertion with proximal retraction; unchanged. SOFT TISSUES:No visible soft tissue swelling. EFFUSION:None visible. OTHER: Negative. XR/XR calcaneus LT min 2V IMPRESSION: 1. Stable avulsion fracture at Achilles tendon insertion into the calcaneus. Electronically authenticated by: FLACO ARCOS Date: 01/07/2024 09:14
--- OUTSIDE RECORDS SUMMARY | 2024-01-06 09:00 | XMS_ITS | CCD ---
Author Organization [facility] Care Team Providers Care Parts Back Counter Man Name Role Phone RHEA Alvarado Attending Provider [facility], Services Primary Care Provider [phone] RHEA Alvarado Primary Care Provide r CARLI Villeda Attending Provider RHEA Alvarado Primary Care Provide r CARLI [place]illeda Attending Provider [phone] Pending Provider Unavailable Unavailable Unavailable Unavailable Unavailable [...] Attending Provider DO Lorrie Baig Attending Provider RHEA Alvarado Primary Care Provide r Acosta Schafer Attending Provider RHEA Ramirez Attending Provider DO Lorrie Baig Referring Provider [phone] Acosta Schafer Attending Un available Pending, Provider Primary Care Unavailable Dr. Acosta Schaferton Attending Un available Pending, Provider Primary Care Unavailable Alejandro II, Antonia Merrill Hernandez Attending Unav ailable Pending, Provider Primary Care Unavailable [place], Dr. Acosta Tyson Attending Un available Pending, Provider Primary Care Unavailable Pending, Provider Primary Care Unavailable Gim[place], Dr. Acosta Tyson Attending Un available [place], Dr. Acosta Tyson Attending Un available Pending, Provider Primary Care Unavailable Pending, Provider Primary Care Unavailable [place], Dr. Acosta Tyson Attending Un available Myerholtz, HEEL NAIL RASPER Elizabeth K Primary Care Provide r Myerholtz, HEEL NAIL RASPER Elizabeth K Attending Provider Sindy Davila Unavailable MARII Davila Attending Provider Tyler Jean Unavailable Myerholtz, HEEL NAIL RASPER Elizabeth K Primary Care Provide r MARII Davila Attending Provider Myerholtz, HEEL NAIL RASPER Elizabeth K Attending Provider Myersaige, HEEL NAIL RASPER Elizabeth K Attending Provider NO FAMILY, PHYSICIAN Primary Care Provider Unava ilable Myerholtz, HEEL NAIL RASPER Elizabeth K Primary Care Provide r DO Lorrie Baig Referring Provider [phone] DO Krzysztof Salazar II Attending Provider NO FAMILY, PHYSICIAN Primary Care Unavailable JustinaerElizabeth [...] (antibiotic) (2 sources) Penicillin Drug Allergy 4 [facility] (20 sources) Penicillins; Translations: [Penicillins] Allergy to substance 8 Anaphylaxis [facility] (6 sources) Ibuprofen; Translations: [ibuprofen] Drug Allergy 3 Unknown Reaction [facility] (3 sources) Penicillin V Drug Allergy 3 [facility] (1 source) Penicillin Drug Allergy 4 [facility] Repository Medications Current Medications Medication Drug Class(es) Dates Sig (Normalized) Sig (Original) acetaminophen 325 mg oral tablet (2 sources) Start: 07-01-2022 acetaminophen (TYLENOL) tablet 650 mg Start: 07-01-2022 End: 07-01-2022 acetaminophen (TYLENOL) tabl et 1,000 mg [id number] 200 actuat albuterol 0.09 mg/actuat metered dose [...] Active docusate sodium 50 mg / sennosides, alf 8.6 mg oral tablet (2 sources) Start: [...] disintegrating tablet 4 mg polyethylene glycol [id number] [id number] mg powder for oral solution (1 source) [...] 75 mg, Oral, DAILY, First dose on [facility] 07/01/22 at 1545, Until Discontinued Do not crush or break. Start: 12-03-2021 take [address] [facility] once daily venlafaxine (EFFEXOR XR) 75 MG [...] Inhalation, 2 TIMES DAILY, First dose on [facility] 07/01/22 at 2000, Until Discontinued Substituted for [...] ER, CMP, CBC, FE and TIBC #### [facility] [address] [place] [address] [place] #### TOMA SERUM, SPE, KAPPA #### [facility] , Albumin [Mass/volume] in Ser um or PlasmaOrdered By: Krzysztof Salazar on 09-20-2023 Albumin [Mass/Vol] 3.8 g/dL Normal 2.9-4.4 [facility] Comment on above: Performed By: #### F ER, CMP, CBC, FE and TIBC ####[facility] [address] [place] [address] [place]#### TOMA SERUM, SPE, KAPPA ####[facility] , [...] ER, CMP, CBC, FE and TIBC #### [facility] [address] [place] [address] [place] #### TOMA SERUM, SPE, KAPPA #### [facility] , Aspartate aminotransferase [ Enzymatic activity/volume] in Serum or PlasmaOrdered By: Krzysztof Salazar on 09-20-2023 AST [Catalytic activity/Vol] 30 U/L Normal 13-39 [facility] Comment on above: Performed By: #### F ER, CMP, CBC, FE and TIBC #### [facility] [address] [place] [address] [place] #### TOMA SERUM, SPE, KAPPA #### [facility] , Automated basophil %Ordered By: Krzysztof Salazar on 09-20-2023 Basophils/100 WBC (Bld) 0.5 % Normal . F [facility] Comment on above: Performed By: #### F ER, CMP, CBC, FE and TIBC #### [address] #### TOMA SERUM, SPE, KAPPA #### [facility] , Automated basophil countOrde red By: Krzysztof Salazar on 09-20-2023 Basophils (Bld) [#/Vol] 0.0 10*3/uL Normal 0.0-0.2 [facility] Comment on above: Result Comment: PERF ORMED BY: [place] [address] PATHOLOGIST [employer] CONVERTER MELODY ELAM M.D. Performed By: #### F ER, CMP, CBC, FE and TIBC #### [address] #### TOMA SERUM, SPE, KAPPA #### [facility] , Automated blood monocyte cou ntOrdered By: Krzysztof Salazar on 09-20-2023 Monocytes (Bld) [#/Vol] 0.7 10*3/uL Normal 0.0-0.8 [facility] Comment on above: Performed By: #### F ER, CMP, CBC, FE and TIBC #### [place] [address] [place] #### TOMA SERUM, SPE, KAPPA #### [facility] , Automated eosinophil %Ordere d By: Krzysztof Salazar on 09-20-2023 Eosinophils/100 WBC (Bld) 2.6 % Normal . [facility] Comment on above: Performed By: #### F ER, CMP, CBC, FE and TIBC #### [address] #### TOMA SERUM, SPE, KAPPA #### [facility] , Automated eosinophil countOr dered By: Krzysztof Salazar on 09-20-2023 Eosinophils (Bld) [#/Vol] 0.2 10*3/uL Normal 0.0-0.45 [facility] Comment on above: Performed By: #### F ER, CMP, CBC, FE and TIBC #### [address] #### TOMA SERUM, SPE, KAPPA #### [facility] , Automated monocyte %Ordered By: Krzysztof Salazar on 09-20-2023 Monocytes/100 WBC (Bld) 7.9 % Normal . F [facility] Comment on above: Performed By: #### F ER, CMP, CBC, FE and TIBC #### [address] #### TOMA SERUM, SPE, KAPPA #### [facility] , Automated neutrophil %Ordere d By: Krzysztof Salazar on 09-20-2023 Neutrophils/100 WBC (Bld) 64.3 % Normal . [facility] Comment on above: Performed By: #### F ER, CMP, CBC, FE and TIBC #### [address] #### TOMA SERUM, SPE, KAPPA #### [facility] , Bilirubin.total [Mass/volume ] in Serum or PlasmaOrdered By: Krzysztof Salazar on 09-20-2023 Bilirubin [Mass/Vol] 0.6 mg/dL Normal 0.3-1.0 [facility] Comment on above: Performed By: #### F ER, CMP, CBC, FE and TIBC #### [address] #### TOMA SERUM, SPE, KAPPA #### [facility] , Calcium [Mass/volume] in Ser um or PlasmaOrdered By: Krzysztof Salazar on 09-20-2023 Calcium [Mass/Vol] 9.7 mg/dL Normal 8.6-10.3 [facility] Comment on above: Performed By: #### F ER, CMP, CBC, FE and TIBC #### [place] [address] [place] #### TOMA SERUM, SPE, KAPPA #### [facility] , Carbon dioxide, total [Moles /volume] in Serum or PlasmaOrdered By: Krzysztof Salazar on 09-20-2023 CO2 [Moles/Vol] 32.4 mmol/L High 21.0-31.0 [facility] Comment on above: Performed By: #### F ER, CMP, CBC, FE and TIBC #### [place] [address] [place] #### TOMA SERUM, SPE, KAPPA #### [facility] , Chloride [Moles/volume] in S hugo or PlasmaOrdered By: Krzysztof Salazar on 09-20-2023 Chloride [Moles/Vol] 97 mmol/L Low 98-107 [facility] Comment on above: Performed By: #### F ER, CMP, CBC, FE and TIBC #### [place] [address] [place] #### TOMA SERUM, SPE, KAPPA #### [facility] , Complete Blood Count Auto Di ffon 09-20-2023 Mean Corpuscular HGB Conc 32.7 g/dL Normal 32.0-35.0 [facility] Comment on above: Performed By: #### F ER, CMP, CBC, FE and TIBC #### [place] [address] [place] #### TOMA SERUM, SPE, KAPPA #### [facility] , NRBC% 0.1 /100{WBC} Normal 0-0.5 [facility] Comment on above: Performed By: #### F ER, CMP, CBC, FE and TIBC #### [place] [address] [place] #### TOMA SERUM, SPE, KAPPA #### [facility] , Comprehensive Metabolic Pane gretel 09-20-2023 Albumin [Mass/Vol] 4.2 g/dL Normal 3.5-5.7 [facility] Comment on above: Performed By: #### F ER, CMP, CBC, FE and TIBC #### [place] [address] [place] #### TOMA SERUM, SPE, KAPPA #### [facility] , Creatinine Clr Calc Pharmacy 143.32 Normal [facility] Comment on above: Performed By: #### F ER, CMP, CBC, FE and TIBC #### [place] [address] [place] #### TOMA SERUM, SPE, KAPPA #### [facility] , GFR/1.73 sq M.predicted MDRD (S/P/Bld) [Vol rate/Area] mL/min/{1.73_m2} Normal [facility] Comment on above: Performed By: #### F ER, CMP, CBC, FE and TIBC #### [place] [address] [place] #### TOMA SERUM, SPE, KAPPA #### [facility] , Creatinine [Mass/volume] in Serum or PlasmaOrdered By: Krzysztof Salazar on 09-20-2023 Creatinine [Mass/Vol] 0.60 mg/dL Normal 0.60-1.20 [facility] Comment on above: Performed By: #### F ER, CMP, CBC, FE and TIBC #### [place] [address] [place] #### TOMA SERUM, SPE, KAPPA #### [facility] , Erythrocyte distribution wid th [Ratio] by Automated countOrdered By: Krzysztof Salazar on 09-20-2023 Erythrocyte distribution width (RBC) [Ratio] 16.7 % High 11.9-15.3 [facility] Comment on above: Performed By: #### F ER, CMP, CBC, FE and TIBC #### [address] #### TOMA SERUM, SPE, KAPPA #### [facility] , Erythrocytes [#/volume] in B lood by Automated countOrdered By: Krzysztof Salazar on 09-20-2023 RBC (Bld) [#/Vol] 4.86 10*6/uL Normal 3.60-5.00 [facility] Comment on above: Performed By: #### F ER, CMP, CBC, FE and TIBC #### [address] #### TOMA SERUM, SPE, KAPPA #### [facility] , Ferritin [Mass/volume] in Se rum or PlasmaOrdered By: Krzysztof Salazar on 09-20-2023 Ferritin [Mass/Vol] 92.7 ng/mL Normal 11.0-306.8 [facility] Comment on above: Result Comment: PERF ORMED BY: [place] [address] PATHOLOGIST [employer] CON[employer]TER MELODY ELAM M.D. Performed By: #### F ER, CMP, CBC, FE and TIBC ####[address]#### TOMA SERUM, SPE, KAPPA ####[facility] , Free K+L LT Chains, Qn, Son 09-20-2023 Free [place] Light Chains, S 30.9 mg/L High 3.3-19.4 [facility] Comment on above: Performed By: #### F ER, CMP, CBC, FE and TIBC ####[address]#### TOMA SERUM, SPE, KAPPA ####[facility] , Free Lambda Light Chains, S 26.4 mg/L High 5.7-26.3 [facility] Comment on above: Performed By: #### F ER, CMP, CBC, FE and TIBC ####[address] [place] [address] [place]#### TOMA SERUM, SPE, KAPPA ####[facility] , [place]/Lambda Ratio, S 1.17 Normal 0.26-1.65 [facility] Comment on above: Result Comment: Perf ormed at: - [facility] [address] [id number] Advisory Intern: Jeyson Duncan PhD, Phone: [phone] PERFORMED BY: [place] [address] PATHOLOGIST [employer] CON[employer]TER MELODY ELAM M.D. Performed By: #### F ER, CMP, CBC, FE and TIBC ####[address]#### TOMA SERUM, SPE, KAPPA ####[facility] , Glucose [Mass/volume] in Ser um or PlasmaOrdered By: Krzysztof Salazar on 09-20-2023 Glucose [Mass/Vol] 123 mg/dL High 70-100 [facility] Comment on above: ADA recommended refe rence rangeRandom Glucose Reference Range is dependent on time and content of last meal. Glucose of more than 200 mg/dL in a nonstressed, ambulatory subject supports the diagnosis of Diabetes Mellitus. Result Comment: [place] om Glucose Reference Range is dependent on time and content of last meal. Glucose of more than 200 mg/dL in a nonstressed, ambulatory subject supports the diagnosis of Diabetes Mellitus. ADA recommended reference range Performed By: #### F ER, CMP, CBC, FE and TIBC #### [facility] [address] [place] [address] #### TOMA SERUM, SPE, KAPPA #### [facility] , Hematocrit [Volume Fraction] of Blood by Automated countOrdered By: Krzysztof Salazar on 09-20-2023 Hematocrit (Bld) [Volume fraction] 38.3 % Normal 34.0-46.4 [facility] Comment on above: Performed By: #### F ER, CMP, CBC, FE and TIBC #### [facility] [address] #### TOMA SERUM, SPE, KAPPA #### [facility] , Hemoglobin [Mass/volume] in BloodOrdered By: Krzysztof Salazar on 09-20-2023 Hemoglobin (Bld) [Mass/Vol] 12.5 g/dL Normal 11.8-15.4 [facility] Comment on above: Performed By: #### F ER, CMP, CBC, FE and TIBC #### [facility] [address] #### TOMA SERUM, SPE, KAPPA [...] Medical Center Comment on above: Performed at: [place] [id number] Director: Jeyson Duncan PhD, Phone: [phone] Immunofixation,Serumon 09-19 Immunofixation, Serum Normal . [facility] Comment on above: Result Comment: No m onoclonality detected. Performed By: #### F ER, CMP, CBC, FE and TIBC ####[facility] [place] [address] [place]#### TOMA SERUM, SPE, KAPPA ####[facility] , Immunoglobulin A, Serum 409 mg/dL High 87-352 [facility] Comment on above: Performed By: #### F ER, CMP, CBC, FE and TIBC ####[facility]#### TOMA SERUM, SPE, KAPPA ####[facility] , Immunoglobulin G 1704 mg/dL High 586-1602 [facility] Comment on above: Performed By: #### F ER, CMP, CBC, FE and TIBC ####[place] [address] [address]#### TOMA SERUM, SPE, KAPPA ####[facility] , Immunoglobulin M, Serum 122 mg/dL Normal 26-217 [facility] Comment on above: Result Comment: Perf ormed at: [employer] - [facility] [address] [id number] Advisory Intern: Jeyson Duncan PhD, Phone: [phone] Performed By: #### F ER, CMP, CBC, FE and TIBC ####[place] [address] [address]#### TOMA SERUM, SPE, KAPPA ####[facility] , Immunoglobulin light chains. kappa.free [Mass/volume] in SerumOrdered By: Krzysztof Salazar on 09-20-2023 Immunoglobulin light chains.kappa.free (S) [Mass/Vol] 30.9 mg/L 3.3-19.4 [facility] Immunoglobulin light chains. kappa.free/Immunoglobulin light chains.lambda.free [MassOrdered By: Krzysztof Salazar on 09-20-2023 Immunoglobulin light chains.kappa.free/Immuno globulin light chains.lambda.free (S) [Mass ratio] 1.17 0.26-1.65 [facility] Comment on above: Performed at: [employer] [facility] [id number] [place] [id number] Director: Jeyson Duncan PhD, Phone: [phone] Immunoglobulin light chains. lambda.free [Mass/volume] in Serum or PlasmaOrdered By: Krzysztof Salazar on 09-20-2023 Immunoglobulin light chains.lambda.free [Mass/Vol] 26.4 mg/L 5.7-26.3 [facility] Iron [Mass/volume] in Serum or PlasmaOrdered By: Krzysztof Salazar on 09-20-2023 Iron [Mass/Vol] 74 ug/dL Normal 50-212 [facility] Comment on above: Performed By: #### F ER, CMP, CBC, FE and TIBC ####[facility]#### TOMA SERUM, SPE, KAPPA ####[facility] , Iron and TIBC Profileon 08-24 % Iron Saturation 21.5 % Normal 20-50 [facility] Comment on above: Performed By: #### F ER, CMP, CBC, FE and TIBC ####[facility] [address]#### TOMA SERUM, SPE, KAPPA ####[facility] , Total Iron Binding Capacity 344 ug/dL Normal 255-450 [facility] Comment on above: Performed By: #### F ER, CMP, CBC, FE and TIBC ####[facility] [place] [address] [place]#### TOMA SERUM, SPE, KAPPA ####[facility] , [...] WBC (Bld) [#/Vol] 8.5 10*3/uL Normal 3.8-11.6 [facility] Comment on above: Performed By: #### F ER, CMP, CBC, FE and TIBC #### [place] [address] [place] #### TOMA SERUM, SPE, KAPPA #### [facility] , Lymphocytes [#/volume] in Bl ood by Automated countOrdered By: Krzysztof Salazar on 09-20-2023 Lymphocytes (Bld) [#/Vol] 2.1 10*3/uL Normal 1.00-4.8 [facility] Comment on above: Performed By: #### F ER, CMP, CBC, FE and TIBC #### [address] #### TOMA SERUM, SPE, KAPPA #### [facility] , Lymphocytes/100 leukocytes i n Blood by Automated countOrdered By: Krzysztof Salazar on 09-20-2023 Lymphocytes/100 WBC (Bld) 24.7 % Normal . [facility] Comment on above: Performed By: #### F ER, CMP, CBC, FE and TIBC #### [place] [address] [place] #### TOMA SERUM, SPE, KAPPA #### [facility] , MCH [Entitic mass] by Automa silverio countOrdered By: Krzysztof Salazar on 09-20-2023 MCH (RBC) [Entitic mass] 25.8 pg Normal 24.7-34.3 [facility] Comment on above: Performed By: #### F ER, CMP, CBC, FE and TIBC #### [place] [address] [place] #### TOMA SERUM, SPE, KAPPA #### [facility] , MCHC Auto (RBC) [Mass/Vol]Or dered By: Krzysztof Salazar on 09-20-2023 MCHC (RBC) [Mass/Vol] 32.7 g/dL 32.0-35.0 [facility] MCV [Entitic volume] by Auto mated countOrdered By: Krzysztof Salazar on 09-20-2023 MCV (RBC) [Entitic vol] 78.7 fL Low 80-100 F [facility] Comment on above: Performed By: #### F ER, CMP, CBC, FE and TIBC #### [address] #### TOMA SERUM, SPE, KAPPA #### [facility] , Neutrophils [#/volume] in Bl ood by Automated countOrdered By: Krzysztof Salazar on 09-20-2023 Neutrophils (Bld) [#/Vol] 5.5 10*3/uL Normal 1.8-7.7 [facility] Comment on above: Performed By: #### F ER, CMP, CBC, FE and TIBC #### [facility] [address] [place] [address] #### TOMA SERUM, SPE, KAPPA #### [facility] [...] sis scan will follow via computer,mail, or dry curer delivery. Serum Immunofixation See comment . [facility] Comment on above: No monoclonality det [...] ER, CMP, CBC, FE and TIBC #### [facility] [address] [place] [address] [place] #### TOMA SERUM, SPE, KAPPA #### [facility] , Platelets [#/volume] in Bloo d by Automated countOrdered By: Krzysztof Salazar on 09-20-2023 Platelets (Bld) [#/Vol] 271 10*3/uL Normal 150-450 [facility] Comment on above: Performed By: #### F ER, CMP, CBC, FE and TIBC #### [facility] [address] #### TOMA SERUM, SPE, KAPPA #### [facility] , Potassium [Moles/volume] in Serum or PlasmaOrdered By: Krzysztof Salazar on 09-20-2023 Potassium [Moles/Vol] 4.4 mmol/L Normal 3.5-5.1 [facility] Comment on above: Performed By: #### F ER, CMP, CBC, FE and TIBC #### [facility] [address] #### TOMA SERUM, SPE, KAPPA #### [facility] , Protein Electrophoresis, Ser umon 09-20-2023 Uovcj-5-Tqthxxlc 0.3 g/dL Normal 0.0-0.4 [facility] Comment on above: Performed By: #### F ER, CMP, CBC, FE and TIBC ####[facility] [place] [address] [place]#### TOMA SERUM, SPE, KAPPA ####[facility] , Knmjn-2-Urnlncbb 0.8 g/dL Normal 0.4-1.0 [facility] Comment on above: Performed By: #### F ER, CMP, CBC, FE and TIBC ####[facility] [place] [address] [place]#### TOMA SERUM, SPE, KAPPA ####[facility] , Beta Globulin 1.2 g/dL Normal 0.7-1.3 [facility] Comment on above: Performed By: #### F ER, CMP, CBC, FE and TIBC ####[facility]#### TOMA SERUM, SPE, KAPPA ####[facility] , Gamma Globulin 1.8 g/dL Normal 0.4-1.8 [facility] Comment on above: Performed By: #### F ER, CMP, CBC, FE and TIBC ####[address]#### TOMA SERUM, SPE, KAPPA ####[facility] , M-Antwan Not Observed Normal Not Observed [facility] Comment on above: Performed By: #### F ER, CMP, CBC, FE and TIBC ####[address]#### TOMA SERUM, SPE, KAPPA ####[facility] , SPE-Note Normal . [facility] Comment on above: Result Comment: Prot ein electrophoresis scan will follow via computer, mail, or dry curer delivery. Performed By: #### F ER, CMP, CBC, FE and TIBC ####[address]#### TOMA SERUM, SPE, KAPPA ####[facility] , Protein [Mass/volume] in Ser um or PlasmaOrdered By: Krzysztof Salazar on 09-20-2023 Protein [Mass/Vol] 7.7 g/dL Normal 6.4-8.9 [facility] Comment on above: Performed By: #### F ER, CMP, CBC, FE and TIBC #### [facility] [address] #### TOMA SERUM, SPE, KAPPA #### [facility] , Protein [Mass/Vol] 7.8 g/dL Normal 6.0-8.5 [facility] Comment on above: Performed By: #### F ER, CMP, CBC, FE and TIBC ####[address]#### TOMA SERUM, SPE, KAPPA ####[facility] , Serum globulin measurement ( mass/volume)Ordered By: Krzysztof Salazar on 09-20-2023 Globulin (S) [Mass/Vol] 4.0 g/dL High 2.2-3.9 [facility] Comment on above: Performed By: #### F ER, CMP, CBC, FE and TIBC ####[address]#### TOMA SERUM, SPE, KAPPA ####[facility] , Serum globulin measurement b y calculation (mass/volume)Ordered By: Krzysztof Salazar on 09-20-2023 Globulin (S) [Mass/Vol] 3.5 g/dL Normal F [facility] Comment on above: Performed By: #### F ER, CMP, CBC, FE and TIBC #### [address] #### TOMA SERUM, SPE, KAPPA #### [facility] , Serum or plasma albumin/glob ulin mass ratioOrdered By: Krzysztof Salazar on 09-20-2023 Albumin/Globulin [Mass ratio] 1.2 {ratio} Normal [facility] Comment on above: Performed By: #### F ER, CMP, CBC, FE and TIBC #### [place] [address] [place] #### TOMA SERUM, SPE, KAPPA #### [facility] , Albumin/Globulin [Mass ratio] 1.0 {ratio} Normal 0.7-1.7 [facility] Comment on above: Performed By: #### F ER, CMP, CBC, FE and TIBC ####[place] [address] [place]#### TOMA SERUM, SPE, KAPPA ####[facility] , [...] Anion gap [Moles/Vol] 11.0 mmol/L Normal 6.0-15.0 [facility] Comment on above: Performed By: #### F ER, CMP, CBC, FE and TIBC #### [facility] [address] [place] [address] #### TOMA SERUM, SPE, KAPPA #### [facility] [...] 09-20-2023 Sodium [Moles/Vol] 136 mmol/L Normal 136-145 [facility] Comment on above: Performed By: #### F ER, CMP, CBC, FE and TIBC #### [facility] [address] [place] [address] [place] #### TOMA SERUM, SPE, KAPPA #### [facility] , Transferrin [Mass/volume] in Serum or PlasmaOrdered By: Krzysztof Salazar on 09-20-2023 Transferrin [Mass/Vol] 246 mg/dL Normal 203-362 [facility] Comment on above: Performed By: #### F ER, CMP, CBC, FE and TIBC ####[facility] [address]#### TOMA SERUM, SPE, KAPPA ####[facility] , Urea nitrogen [Mass/volume] in Serum or PlasmaOrdered By: Krzysztof Salazar on 09-20-2023 Urea nitrogen [Mass/Vol] 16 mg/dL Normal 7-25 [facility] Comment on above: Performed By: #### F ER, CMP, CBC, FE and TIBC #### [facility] [address] #### TOMA SERUM, SPE, KAPPA #### [facility] , US pelvic completeon 024 US pelvic complete [facility] [address] [place] [address] [place] [address] Ultrasound Report Signed Patient: Geeta Shelton MR#: [id number] : [id number] Acct:[id number] Age/Sex: 53 / F ADM Date: 09/07/23 Loc: Room: Type: [facility] Attending Dr: Elizabeth Alvarado APRN, NP-C Ordering Provider: Elizabeth Alvarado APRN, CNP Date of Service: 09/07/23 US/US transvaginal: Abnormal vaginal bleeding ([id number]) US/US pelvic complete: Abnormal vaginal bleeding Copies [...] Davis Jr., D.OAntonia09/07/2023 2:39 PM Dictation Location: [place] [address] Tech: Jessica Saenz Transcribed By: SEJAL 09/07/23 1439 Dictated By: Jesus Davis Jr, DO 09/07/23 1437 Signed By: 09/07/23 1439 Normal [facility] [facility] Alanine aminotransferase [En zymatic activity/volume] in Serum or PlasmaOrdered By: Elizabeth Alvarado on 08-24-2023 ALT [Catalytic activity/Vol] 28 U/L Normal 7-52 [facility] Comment on above: Order Comment: Reaso n for Exam Type 2 diabetes mellitus without complication, without long- Performed By: #### T SH3 wRFLX, LIPID, CBC, CMP #### [facility] [address] [place] [address] [place] Albumin [Mass/volume] in Ser um or [...] T SH3 wRFLX, LIPID, CBC, CMP #### [facility] [address] [place] [address] [place] Aspartate aminotransferase [ Enzymatic activity/volume] in Serum or PlasmaOrdered By: Elizabeth Alvarado on 08-24-2023 AST [Catalytic activity/Vol] 28 U/L Normal 13-39 [facility] Comment on above: Order Comment: Reaso n for Exam Type 2 diabetes mellitus without complication, without long- Performed By: #### T SH3 wRFLX, LIPID, CBC, CMP #### [facility] [address] Automated basophil %Ordered By: Elizabeth Alvarado on 08-24-2023 Basophils/100 WBC (Bld) 0.7 % Normal . [facility] Comment on above: Order Comment: Reaso n for Exam Type 2 diabetes mellitus without complication, without long- Performed By: #### T SH3 wRFLX, LIPID, CBC, CMP #### [facility] [address] Automated basophil countOrde red By: Elizabeth Alvarado on 08-24-2023 Basophils (Bld) [#/Vol] 0.1 10*3/uL Normal 0.0-0.2 [facility] Comment on above: Order Comment: Reaso n for Exam Type 2 diabetes mellitus without complication, without long- Result Comment: PERF ORMED BY: [place] [address] PATHOLOGIST [employer] CON[employer] MELODY ELAM M.D. Performed By: #### T SH3 wRFLX, LIPID, CBC, CMP #### [address] Automated blood monocyte cou ntOrdered By: Elizabeth Alvarado on 08-24-2023 Monocytes (Bld) [#/Vol] 0.8 10*3/uL Normal 0.0-0.8 [facility] Comment on above: Order Comment: Reaso n for Exam Type 2 diabetes mellitus without complication, without long- Performed By: #### T SH3 wRFLX, LIPID, CBC, CMP #### [place] [address] [place] Automated eosinophil %Ordere d By: Elizabeth Alvarado on 08-24-2023 Eosinophils/100 WBC (Bld) 3.3 % Normal . [facility] Comment on above: Order Comment: Reaso n for Exam Type 2 diabetes mellitus without complication, without long- Performed By: #### T SH3 wRFLX, LIPID, CBC, CMP #### [facility] [address] Automated eosinophil countOr dered By: Elizabeth Alvarado on 08-24-2023 Eosinophils (Bld) [#/Vol] 0.3 10*3/uL Normal 0.0-0.45 [facility] Comment on above: Order Comment: Reaso n for Exam Type 2 diabetes mellitus without complication, without long- Performed By: #### T SH3 wRFLX, LIPID, CBC, CMP #### [facility] [address] Automated monocyte %Ordered By: Elizabeth Alvarado on 08-24-2023 Monocytes/100 WBC (Bld) 8.1 % Normal . [facility] Comment on above: Order Comment: Reaso n for Exam Type 2 diabetes mellitus without complication, without long- Performed By: #### T SH3 wRFLX, LIPID, CBC, CMP #### [facility] [address] Automated neutrophil %Ordere d By: Elizabeth Alvarado on 08-24-2023 Neutrophils/100 WBC (Bld) 62.4 % Normal . [facility] Comment on above: Order Comment: Reaso n for Exam Type 2 diabetes mellitus without complication, without long- Performed By: #### T SH3 wRFLX, LIPID, CBC, CMP #### [facility] [address] [place] [address] [place] Bilirubin.total [Mass/volume ] in Serum or PlasmaOrdered By: Elizabeth Alvarado on 08-24-2023 Bilirubin [Mass/Vol] 0.4 mg/dL Normal 0.3-1.0 [facility] Comment on above: Order Comment: Reaso n for Exam Type 2 diabetes mellitus without complication, without long- Performed By: #### T SH3 wRFLX, LIPID, CBC, CMP #### [facility] [address] [place] [id number] [place] Calcium [Mass/volume] in Ser um or PlasmaOrdered By: Elizabeth Alvarado on 08-24-2023 Calcium [Mass/Vol] 9.4 mg/dL Normal 8.6-10.3 [facility] Comment on above: Order Comment: Reaso n for Exam Type 2 diabetes mellitus without complication, without long- Performed By: #### T SH3 wRFLX, LIPID, CBC, CMP #### [facility] [address] [place] [id number] [place] Carbon dioxide, total [Moles /volume] in Serum or PlasmaOrdered By: Elizabeth Alvarado on 08-24-2023 CO2 [Moles/Vol] 29.2 mmol/L Normal 21.0-31.0 [facility] Comment on above: Order Comment: Reaso n for Exam Type 2 diabetes mellitus without complication, without long- Performed By: #### T SH3 wRFLX, LIPID, CBC, CMP #### [facility] [address] [place] [id number] [place] Chloride [Moles/volume] in S hugo or PlasmaOrdered By: Elizabeth Alvarado on 08-24-2023 Chloride [Moles/Vol] 96 mmol/L Low 98-107 [facility] Comment on above: Order Comment: Reaso n for Exam Type 2 diabetes mellitus without complication, without long- Performed By: #### T SH3 wRFLX, LIPID, CBC, CMP #### [facility] [address] [place] [id number] [place] Cholesterol [Mass/volume] in Serum or PlasmaOrdered By: Elizabeth Alvarado on 08-24-2023 Cholesterol [Mass/Vol] 160 mg/dL Normal 140-200 [facility] Comment on above: Chol less than [...] T SH3 wRFLX, LIPID, CBC, CMP #### [facility] [address] Cholesterol in LDL Calc [Mas [...] HGB Conc 32.5 g/dL Normal 32.0-35.0 [facility] Comment on above: Order Comment: Reaso n for Exam Type 2 diabetes mellitus without complication, without long- Performed By: #### T SH3 wRFLX, LIPID, CBC, CMP #### [facility] [address] NRBC% 0.2 /100{WBC} Normal 0-0.5 [facility] Comment on above: Order Comment: Reaso n for Exam Type 2 diabetes mellitus without complication, without long- Performed By: #### T SH3 wRFLX, LIPID, CBC, CMP #### [facility] [address] Comprehensive Metabolic Pane gretel 08-24-2023 Albumin [Mass/Vol] 4.3 g/dL Normal 3.5-5.7 [facility] Comment on above: Order Comment: Reaso n for Exam Type 2 diabetes mellitus without complication, without long- Performed By: #### T SH3 wRFLX, LIPID, CBC, CMP #### [facility] [address] [place] [address] [place] GFR/1.73 sq M.predicted MDRD (S/P/Bld) [Vol rate/Area] mL/min/{1.73_m2} Normal [facility] Comment on above: Order Comment: Reaso n for Exam Type 2 diabetes mellitus without complication, without long- Performed By: #### T SH3 wRFLX, LIPID, CBC, CMP #### [facility] [address] Creatinine [Mass/volume] in Serum or PlasmaOrdered By: Elizabeth Alvarado on 08-24-2023 Creatinine [Mass/Vol] 0.65 mg/dL Normal 0.60-1.20 [facility] Comment on above: Order Comment: Reaso n for Exam Type 2 diabetes mellitus without complication, without long- Performed By: #### T SH3 wRFLX, LIPID, CBC, CMP #### [facility] [address] [place] [address] [place] Creatinine [Mass/volume] in UrineOrdered By: Elizabeth [...] T SH3 wRFLX, LIPID, CBC, CMP #### [facility] [address] [place] [address] [place] Erythrocytes [#/volume] in B lood by Automated countOrdered By: Elizabeth Alvarado on 08-24-2023 RBC (Bld) [#/Vol] 5.06 10*6/uL High 3.60-5.00 [facility] Comment on above: Order Comment: Reaso n for Exam Type 2 diabetes mellitus without complication, without long- Performed By: #### T SH3 wRFLX, LIPID, CBC, CMP #### [facility] [address] [place] [address] [place] Glucose [Mass/volume] in Ser um or PlasmaOrdered By: Elizabeth Alvarado on 08-24-2023 Glucose [Mass/Vol] 92 mg/dL Normal 70-100 [facility] Comment on above: ADA recommended refe rence rangeRandom Glucose Reference Range is dependent on time and content of last meal. Glucose of more than 200 mg/dL in a nonstressed, ambulatory subject supports the diagnosis of Diabetes Mellitus. Order Comment: Reaso n for Exam Type 2 diabetes mellitus without complication, without long- Result Comment: [place] om Glucose Reference Range is dependent on time and content of last meal. Glucose of more than 200 mg/dL in a nonstressed, ambulatory subject supports the diagnosis of Diabetes Mellitus. ADA recommended reference range Performed By: #### T SH3 wRFLX, LIPID, CBC, CMP #### [facility] [address] Hematocrit [Volume Fraction] of Blood by Automated countOrdered By: Elizabeth Alvarado on 08-24-2023 Hematocrit (Bld) [Volume fraction] 40.6 % Normal 34.0-46.4 [facility] Comment on above: Order Comment: Reaso n for Exam Type 2 diabetes mellitus without complication, without long- Performed By: #### T SH3 wRFLX, LIPID, CBC, CMP #### [facility] [address] [place] [address] [place] Hemoglobin [Mass/volume] in BloodOrdered By: Elizabeth Alvarado on 08-24-2023 Hemoglobin (Bld) [Mass/Vol] 13.2 g/dL Normal 11.8-15.4 [facility] Comment on above: Order Comment: Reaso n for Exam Type 2 diabetes mellitus without complication, without long- Performed By: #### T SH3 wRFLX, LIPID, CBC, CMP #### [facility] [address] [place] [address] [place] Leukocytes [#/volume] correc silverio for nucleated erythrocytes in Blood by Automated counOrdered By: Elizabeth Alvarado on 08-24-2023 WBC corrected for nucl RBC Auto (Bld) [#/Vol] 10.2 10*3/uL 3.8-11.6 [facility] Leukocytes [#/volume] in Blo od by Automated countOrdered By: Elizabeth Alvarado on 08-24-2023 WBC (Bld) [#/Vol] 10.2 10*3/uL Normal 3.8-11.6 [facility] Comment on above: Order Comment: Reaso n for Exam Type 2 diabetes mellitus without complication, without long- Performed By: #### T SH3 wRFLX, LIPID, CBC, CMP #### [facility] [address] Lipid Panelon 08-24-2023 LDL Cholesterol,Calculated 78 mg/dL Normal 0-100 [facility] Comment on above: Order Comment: [...] T SH3 wRFLX, LIPID, CBC, CMP #### [facility] [address] Triglyceride w/Reflex 112 mg/dL Normal 0-149 [facility] Comment on above: Order Comment: [...] T SH3 wRFLX, LIPID, CBC, CMP #### [facility] [address] VLDL CHOLESTEROL 22 mg/dL Normal [facility] Comment on above: Order Comment: Reaso n for Exam Type 2 diabetes mellitus without complication, without long- Performed By: #### T SH3 wRFLX, LIPID, CBC, CMP #### [facility] [address] Lymphocytes [#/volume] in Bl ood by Automated countOrdered By: Elizabeth Alvarado on 08-24-2023 Lymphocytes (Bld) [#/Vol] 2.6 10*3/uL Normal 1.00-4.8 [facility] Comment on above: Order Comment: Reaso n for Exam Type 2 diabetes mellitus without complication, without long- Performed By: #### T SH3 wRFLX, LIPID, CBC, CMP #### [facility] [address] Lymphocytes/100 leukocytes i n Blood by Automated countOrdered By: Elizabeth Alvarado on 08-24-2023 Lymphocytes/100 WBC (Bld) 25.5 % Normal . [facility] Comment on above: Order Comment: Reaso n for Exam Type 2 diabetes mellitus without complication, without long- Performed By: #### T SH3 wRFLX, LIPID, CBC, CMP #### [address] MCH [Entitic mass] by Automa silverio countOrdered By: Elizabeth Alvarado on 08-24-2023 MCH (RBC) [Entitic mass] 26.1 pg Normal 24.7-34.3 [facility] Comment on above: Order Comment: Reaso n for Exam Type 2 diabetes mellitus without complication, without long- Performed By: #### T SH3 wRFLX, LIPID, CBC, CMP #### [facility] [address] [place] [address] MCHC Auto (RBC) [Mass/Vol]Or dered By: Elizabeth Alvarado on 08-24-2023 MCHC (RBC) [Mass/Vol] 32.5 g/dL 32.0-35.0 [facility] MCV [Entitic volume] by Auto mated countOrdered By: Elizabeth Alvarado on 08-24-2023 MCV (RBC) [Entitic vol] 80.3 fL Normal 80-100 F [facility] Comment on above: Order Comment: Reaso n for Exam Type 2 diabetes mellitus without complication, without long- Performed By: #### T SH3 wRFLX, LIPID, CBC, CMP #### [address] MicroAlb Creat Ratio,Uon Creatinine, Urine (Random) 76.0 mg/dL Normal [facility] Comment on above: Order Comment: Reaso n for Exam Type 2 diabetes mellitus without complication, without long- Result Comment: No r eference range established Performed By: #### U RMACRERAT #### [address] Microalbumin/Creatinine Ratio Not performed Normal 0.0-30.0 [facility] Comment on above: Order Comment: Reaso n for Exam Type 2 diabetes mellitus without complication, without long- Result Comment: PERF ORMED BY: [place] [address] PATHOLOGIST [employer] MELODY ELAM M.D. Performed By: #### U RMACRERAT #### [address] Microalbumin [Mass/volume] i n UrineOrdered By: Elizabeth Alvarado on 08-24-2023 Albumin DL <= 20 mg/L (U) [Mass/Vol] mg/dL High 0.0-1.8 [facility] Comment on above: Order Comment: Reaso n for Exam Type 2 diabetes mellitus without complication, without long- Performed By: #### U RMACRERAT #### [address] Neutrophils [#/volume] in Bl ood by Automated countOrdered By: Elizabeth Alvarado on 08-24-2023 Neutrophils (Bld) [#/Vol] 6.4 10*3/uL Normal 1.8-7.7 [facility] Comment on above: Order Comment: Reaso n for Exam Type 2 diabetes mellitus without complication, without long- Performed By: #### T SH3 wRFLX, LIPID, CBC, CMP #### [facility] [address] [place] [address] No Panel InformationOrdered By: Elizabeth Alvarado on [...] T SH3 wRFLX, LIPID, CBC, CMP #### [facility] [address] [place] [address] [place] Platelets [#/volume] in Bloo d by Automated countOrdered By: Elizabeth Alvarado on 08-24-2023 Platelets (Bld) [#/Vol] 283 10*3/uL Normal 150-450 [facility] Comment on above: Order Comment: Reaso n for Exam Type 2 diabetes mellitus without complication, without long- Performed By: #### T SH3 wRFLX, LIPID, CBC, CMP #### [facility] [address] [place] [address] [place] Potassium [Moles/volume] in Serum or PlasmaOrdered By: Elizabeht Alvarado on 08-24-2023 Potassium [Moles/Vol] 4.3 mmol/L Normal 3.5-5.1 [facility] Comment on above: Order Comment: Reaso n for Exam Type 2 diabetes mellitus without complication, without long- Performed By: #### T SH3 wRFLX, LIPID, CBC, CMP #### [facility] [address] [place] [address] [place] Protein [Mass/volume] in Ser um or PlasmaOrdered By: Elizabeth Alvarado on 08-24-2023 Protein [Mass/Vol] 7.7 g/dL Normal 6.4-8.9 [facility] Comment on above: Order Comment: Reaso n for Exam Type 2 diabetes mellitus without complication, without long- Performed By: #### T SH3 wRFLX, LIPID, CBC, CMP #### [facility] [address] Serum globulin measurement b y calculation (mass/volume)Ordered By: Elizabeth Alvarado on 08-24-2023 Globulin (S) [Mass/Vol] 3.4 g/dL Normal [facility] Comment on above: Order Comment: Reaso n for Exam Type 2 diabetes mellitus without complication, without long- Performed By: #### T SH3 wRFLX, LIPID, CBC, CMP #### [facility] [address] Serum or plasma albumin/glob ulin mass ratioOrdered By: Elizabeth Alvarado on 08-24-2023 Albumin/Globulin [Mass ratio] 1.3 {ratio} Normal [facility] Comment on above: Order Comment: Reaso n for Exam Type 2 diabetes mellitus without complication, without long- Performed By: #### T SH3 wRFLX, LIPID, CBC, CMP #### [facility] [address] Serum or plasma anion gap de terminationOrdered By: Elizabeth Alvarado on 08-24-2023 Anion gap [Moles/Vol] 18.1 mmol/L High 6.0-15.0 [facility] Comment on above: Order Comment: Reaso n for Exam Type 2 diabetes mellitus without complication, without long- Performed By: #### T SH3 wRFLX, LIPID, CBC, CMP #### [facility] [address] [place] [address] Serum or plasma high density lipoprotein (HDL) [...] T SH3 wRFLX, LIPID, CBC, CMP #### [facility] [address] Serum or plasma total choles terol/high density lipoprotein (HDL) cholesterol mass ratOrdered By: Elizabeth Alvarado on 08-24-2023 Cholesterol.total/Choles terol in HDL [Mass ratio] 2.7 {ratio} Normal <5.0 [facility] Comment on above: Order Comment: Reaso n for Exam Type 2 diabetes mellitus without complication, without long- Performed By: #### T SH3 wRFLX, LIPID, CBC, CMP #### [facility] [address] [place] [address] [place] Sodium [Moles/volume] in Ser um or PlasmaOrdered By: Elizabeth Alvarado on 08-24-2023 Sodium [Moles/Vol] 139 mmol/L Normal 136-145 [facility] Comment on above: Order Comment: Reaso n for Exam Type 2 diabetes mellitus without complication, without long- Performed By: #### T SH3 wRFLX, LIPID, CBC, CMP #### [facility] [address] [place] [address] Thyroid Stim Hormone w/Rflxo n 08-24-2023 Thyroid Stim Hormone w/Rflx 2.40 u[iU]/mL Normal 0.45-5.33 [facility] Comment on above: Order Comment: Reaso n for Exam Type 2 diabetes mellitus without complication, without long- Result Comment: PERF ORMED BY: [place] [address] PATHOLOGIST [employer] MELODY ELAM M.D. Performed By: #### T SH3 wRFLX, LIPID, CBC, CMP #### [facility] [address] [place] [address] [place] Thyrotropin [Units/volume] i n Serum or PlasmaOrdered By: Elizabeth Alvarado on 08-24-2023 TSH Qn 2.40 m[IU]/L 0.45-5.33 [facility] Triglyceride [Mass/volume] i n Serum or PlasmaOrdered By: Elizabeth Alvarado on 08-24-2023 Triglyceride [Mass/Vol] 112 mg/dL 0-149 [facility] Comment on above: TRIG ATP III CLASSIF [...] T SH3 wRFLX, LIPID, CBC, CMP #### [address] Urine microalbumin/creatinin e mass ratioOrdered By: Elizabeth Alvarado on 08-24-2023 Albumin/Creatinine DL <= 20 mg/L (U) [Mass ratio] TNP [facility] Comment on above: Test not performed MM screening mammo BI w/CADo n 05-10-2023 MM screening mammo BI w/CAD [facility] [place] [address] [place] [address] Mammography Report Signed Patient: Geeta Shelton MR#: [id number] : 1970 Acct:[id number] Age/Sex: 53 / F ADM Date: 05/10/23 Loc: [place] Room: Type: [facility] Attending Dr: Elizabeth Alvarado APRN, NETWORK STRATEGIST-C Copies to: Elizabteh Alvarado APRN, CNP Ordering Provider: Elizabeth Alvarado [...] Mary Colon M.D.05/10/2023 10:10 AM Dictation Location: [facility] Transcribed By: SEJAL 05/10/23 1010 Dictated By: Mary Colon MD 05/10/23 1007 Signed By: 05/10/23 1010 Normal [facility] US venous duplex LE [facility] US venous duplex LE [facility] [place] [address] Ultrasound Report Signed Patient: Geeta Shelton MR#: [id number] : 1970 Acct:[id number] Age/Sex: 52 / F ADM Date: 02/14/23 Loc: Room: Type: [facility] Attending Dr: Sindy Davila NETWORK STRATEGIST-C Ordering Provider: Sindy Davila APRN Date of [...] Tyler Jean MD02/14/2023 4:29 PM Dictation Location: [place] [address] Tech: Fouzia Romo Transcribed By: SEJAL 02/14/231628 Dictated By: Tyler Jean MD 02/14/231624 Signed By: 02/14/23 162 Normal [facility] XR chest 2V*on 01-26-2023 XR chest 2V* [facility] [place] [address] [place] [address] XRay Report Signed Patient: Geeta Shelton MR#: [id number] : 1970 Acct:[id number] Age/Sex: 52 / F ADM Date: 01/26/23 Loc: XD Room: Type: [facility] Attending Dr: Elizabeth Alvarado APRN NETWORK STRATEGIST-C Copies to: Elizabeth Alvarado APRN, CNP Ordering [...] Mary Colon M.D.01/26/2023 11:47 AM Dictation Location: [place] [address] Transcribed By: SEJAL 01/26/23 1147 Dictated By: Mary Colon MD 01/26/23 1145 Signed By: 01/26/23 114 Normal [facility] Established Visit (Orthopaed ic Surgery)on [...] grammatical areas may persist related to the [employer] software Merrill Alejandro PA-C . Active Problems [...] grammatical areas may persist related to the [employer] software Acosta Schafer MD Senior Attending Physician [facility] Orthopedic Micanopy . Active Problems Problems Acute pain of [...] 1 tablet daily Results/Data Xray Knee 3 [id number] 01:48PMAcosta Schafer Test NameResultFlagReference Xray Knee 3 View(Report) FINAL REPORT Interpreted by: ACOSTA SCHAFER BURTON, MD 09/22/22 14:13 Patient Name: GEETA SHELTON STUDY: KNEE; 3 VIEWS; Right; 09/22/2022 1:48 pm INDICATION: pain Z96.659: Status post total knee replacement. ACCESSION NUMBER(S): [id number] ORDERING CLINICIAN: ACOSTA SCHAFER FINDINGS: Right knee [...] Status post total knee replacement. ACCESSION NUMBER(S): [id number] ORDERING CLINICIAN: ACOSTA SCHAFER FINDINGS: Right knee three views. Status post revision total knee replacement components in good position no signs of fracture dislocation or other bony abnormalities Electronically signed by: ACOSTA SCHAFER MD Normal [facility] Radiologyon 09-22-2022 XR Knee 3 Views Normal [facility] Work Phone: Alanine aminotransferase [En zymatic activity/volume] in Serum or PlasmaOrdered By: Zoey Ramirez on 08-17-2022 ALT [Catalytic activity/Vol] 45 U/L 7-52 [facility] Albumin [Mass/volume] in Ser um or PlasmaOrdered By: Zoey Ramirez on 08-17-2022 Albumin [Mass/Vol] 3.7 g/dL 2.9-4.4 [facility] Albumin [Mass/volume] in Ser um or [...] Basophils/100 WBC Auto (Bld) Ordered By: Zoey Ramirez on 08-17-2022 Basophils/100 WBC (Bld) 0.9 % . F [facility] Bilirubin.total [Mass/volume ] in Serum or PlasmaOrdered By: Zoey Ramirez on 08-17-2022 Bilirubin [Mass/Vol] 0.4 mg/dL 0.3-1.0 [facility] Calcium [Mass/volume] in Ser um or PlasmaOrdered By: Zoey Ramirez on 08-17-2022 Calcium [Mass/Vol] 9.1 mg/dL 8.6-10.3 [facility] Carbon dioxide, total [Moles /volume] in Serum or PlasmaOrdered By: Zoey Ramirez on 08-17-2022 CO2 [Moles/Vol] 27.9 mmol/L 21.0-31.0 [facility] Chloride [Moles/volume] in S hugo or PlasmaOrdered By: Zoey Ramirez on 08-17-2022 Chloride [Moles/Vol] 100 mmol/L 98-107 [facility] Creatinine [Mass/volume] in Serum or PlasmaOrdered By: Zoey Ramirez on 08-17-2022 Creatinine [Mass/Vol] 0.71 mg/dL 0.60-1.20 [facility] Eosinophils Auto (Bld) [#/Vo l]Ordered By: [...] on 08-17-2022 Ferritin [Mass/Vol] 85.3 ng/mL 11.0-306.8 [facility] Folate [Mass/volume] in Seru m or PlasmaOrdered By: Zoey Ramirez on 08-17-2022 Folate [Mass/Vol] 15.1 ng/mL >5.9 [facility] Comment on above: Folate reference ran ge: >5.9 ng/mlThe WHO technical consultation on folate and vitamin [id number] has determined that folate concentrations lessthan 4 ng/ml are considered deficient. Gamma globulin/Protein.total in 24 hour Urine by ElectrophoresisOrdered By: Zoey Ramirez on 08-17-2022 Gamma globulin Elph (24H U) [Mass fraction] 15.3 % . [facility] Globulin Calc (S) [Mass/Vol] Ordered By: Zoey Ramirez on 08-17-2022 Globulin (S) [Mass/Vol] 4.0 g/dL F [facility] Glucose [Mass/volume] in Ser um or PlasmaOrdered By: Zoey Ramirez on 08-17-2022 Glucose [Mass/Vol] 142 mg/dL 70-100 [facility] Comment on above: ADA recommended refe [...] [facility] Center Comment on above: Performed at: [employer] [facility] [address] [id number] Director: Jeyson Duncan PhD, Phone: [phone] Immunofixation for UrineOrde red By: Zoey Ramirez on 08-17-2022 Interpretation Immunofixation (U) [Interp] See comment . [facility] Comment on above: No monoclonality det ected.Performed at: [employer] [facility] [address] [id number] Director: Jeyson Duncan PhD, Phone: [phone] Immunoglobulin light chains. kappa.free [Mass/volume] in SerumOrdered By: Zoey Ramirez on 08-17-2022 Immunoglobulin light chains.kappa.free (S) [Mass/Vol] 47.1 mg/L 3.3-19.4 [facility] Immunoglobulin light chains. kappa.free/Immunoglobulin light chains.lambda.free [MassOrdered By: Zoey Ramirez on 08-17-2022 Immunoglobulin light chains.kappa.free/Immuno globulin light chains.lambda.free (S) [Mass ratio] 1.65 0.26-1.65 [facility] Comment on above: Performed at: [facility], [place] [id number] Director: Jeyson Duncan PhD, Phone: [phone] Immunoglobulin light chains. lambda.free [Mass/volume] in Serum [...] MCHC (RBC) [Mass/Vol] 32.0 g/dL 32.0-35.0 [facility] MCV Auto (RBC) [Entitic vol] Ordered By: Zoey Ramirez on 08-17-2022 MCV (RBC) [Entitic vol] 77.8 fL 80-100 F [facility] Monocytes Auto (Bld) [#/Vol] Ordered By: Zoey Ramirez on 08-17-2022 Monocytes (Bld) [#/Vol] 0.6 10*3/uL 0.0-0.8 [facility] Monocytes/100 WBC Auto (Bld) Ordered By: Zoey Ramirez on 08-17-2022 Monocytes/100 WBC (Bld) 5.9 % . F [facility] Neutrophils Auto (Bld) [#/Vo l]Ordered [...] sis scan will follow via computer,mail, or dry curer delivery.Performed at: [employer] [id number] Director: Jeyson Duncan PhD, Phone: [phone] Serum Immunofixation Comment: . [facility] Comment on above: Presence of monoclon al protein is unclear at this time. Suggestrepeat in 3 to 6 months if clinically indicated. Urine Random Prot Electrophor Note See comment . [facility] Comment on above: Protein electrophore sis scan will follow via computer,mail, or dry curer delivery.Performed at: [employer] [id number] Director: Jeyson Duncan PhD, Phone: [phone] Nucleated erythrocytes [Pres ence] in Blood by [...] on 08-17-2022 Potassium [Moles/Vol] 4.7 mmol/L 3.5-5.1 [facility] Protein [Mass/volume] in Ser um or PlasmaOrdered By: Zoey Ramirez on 08-17-2022 Protein [Mass/Vol] 8.1 g/dL 6.4-8.9 [facility] Protein [Mass/Vol] 8.0 g/dL 6.0-8.5 [facility] Protein [Mass/volume] in Uri neOrdered By: Zoey Ramirez on 08-17-2022 Protein (U) [Mass/Vol] 75.0 mg/dL Not Estab. [facility] Protein.monoclonal/Protein.t otal in 24 hour Urine by ElectrophoresisOrdered By: Zoey Ramirez on 08-17-2022 Protein.monoclonal Elph (24H U) [Mass fraction] Not observed % Not Observed [facility] RBC Auto (Bld) [#/Vol]Ordere d By: Zoey Ramirez on 08-17-2022 RBC (Bld) [#/Vol] 5.31 10*6/uL 3.60-5.00 [facility] Serum globulin measurement ( mass/volume)Ordered By: Zoey Ramirez on 08-17-2022 Globulin (S) [Mass/Vol] 4.3 g/dL 2.2-3.9 [facility] Serum or plasma albumin/glob ulin mass ratioOrdered [...] 08-17-2022 Anion gap [Moles/Vol] 12.8 mmol/L 6.0-15.0 [facility] Serum or plasma beta globuli n [...] on 08-17-2022 Sodium [Moles/Vol] 136 mmol/L 136-145 [facility] Transferrin [Mass/volume] in Serum or PlasmaOrdered By: Zoey Ramirez on 08-17-2022 Transferrin [Mass/Vol] 246 mg/dL 203-362 [facility] Urea nitrogen [Mass/volume] in Serum or [...] 08-17-2022 WBC (Bld) [#/Vol] 9.9 10*3/uL 3.8-11.6 [facility] Established Visit (Orthopaed ic Surgery)on 08-11-2022 [...] to do her outpatient physical therapy at [facility]. She has a few visits left. She [...] grammatical areas may persist related to the [employer] software Merrill Alejandro PA-C . Active Problems Problems Acute pain of both knees (338.19,719.46) (M25.561,M25.562) Status post total knee replacement (V43.65) (Z96.659) Allergies Medication Penicillins Recorded By: Tarsah Murray; 05/18/2022 8:47:33 AM Current Meds Medication [...] on 07-23-2022 Albumin [Mass/Vol] 3.3 g/dL 2.9-4.4 [facility] Creatine kinase [Enzymatic a ctivity/volume] in [...] on 07-23-2022 Folate [Mass/Vol] 12.8 ng/mL >5.9 [facility] Comment on above: Folate reference ran ge: >5.9 ng/mlThe WHO technical consultation on folate and vitamin [id number] has determined that folate concentrations lessthan 4 ng/ml are considered deficient. Magnesium [Mass/volume] in S hugo or PlasmaOrdered By: Lorrie Baig on 07-23-2022 Magnesium [Mass/Vol] 1.8 mg/dL 1.9-2.7 [facility] No Panel InformationOrdered By: Lorrie Baig on [...] immunofixation orserum free light chain quantitation.Performed at: [facility] [id number] Director: Jeyson Duncan PhD, Phone: [phone] Protein Electrophoresis M-Antwan Comment: g/dL Not Observed [facility] Comment on above: [employer]MM[employer]AM[employer] Protein Electrophoresis Note See comment . [facility] Comment on above: Protein electrophore sis scan will follow via computer,mail, or dry curer delivery. Phosphate [Mass/volume] in S hugo or PlasmaOrdered By: Lorrie Baig on 07-23-2022 Phosphate [Mass/Vol] 4.5 mg/dL 3.7-7.2 [facility] Protein [Mass/volume] in Ser um or PlasmaOrdered By: Lorrie Baig on 07-23-2022 Protein [Mass/Vol] 7.2 g/dL 6.0-8.5 [facility] Serum globulin measurement ( mass/volume)Ordered By: Lorrie Baig on 07-23-2022 Globulin (S) [Mass/Vol] 3.9 g/dL 2.2-3.9 [facility] Serum or plasma albumin/glob ulin mass ratioOrdered [...] Status post total knee replacement. ACCESSION NUMBER(S): [id number] ORDERING CLINICIAN: ACOSTA SCHAFER FINDINGS: Right knee three views. Status post revision type total knee replacement components in good position no signs of fracture dislocation or other bony abnormality dee in the soft tissues anteriorly. Electronically signed by: ACOSTA SCHAFER MD [facility] Post Op (Orthopaedic Surgery )on 07-14-2022 Post [...] she will most likely do this at [facility] in [place]. Physical exam General: No acute distress and [...] Diagnostics Please see dictated x-ray report Procedure Dee removed Steri-Strips placed without complication Assessment Status [...] grammatical areas may persist related to the [employer] software Merrill Alejandro PA-C . Active Problems Problems Acute pain of both knees (338.19,719.46) (M25.561,M25.562) Status post total knee replacement (V43.65) (Z96.659) Allergies Medication Penicillins Recorded By: Tarsha Murray; 05/18/2022 8:47:33 AM Current Meds Medication NameInstruction Xarelto 10 MG Oral TabletTake 1 tablet daily Results/Data Xray Knee 3 [id number] 08:47Acosta Osborne Test NameResultFlagReference Xray Knee 3 View(Report) FINAL REPORT Interpreted by: ACOSTA SCHAFER BURTON, MD 07/14/22 08:49 Patient Name: GEETA SHELTON STUDY: KNEE; 3 VIEWS; Right; 07/14/2022 8:47 am INDICATION: pain Z96.659: Status post total knee replacement. ACCESSION NUMBER(S): [id number] ORDERING CLINICIAN: ACOSTA SCHAFER FINDINGS: Right knee [...] Radiologyon 07-14-2022 XR Knee 3 Views Normal -[place] [facility] Work Phone: Basic Metabolic Panel Reflex Mgon 07-03-2022 Anion gap [Moles/Vol] 10 mmol/L Normal 9-15 [facility] Comment on above: Performed By: #### B MPX #### [facility] [address] [place] [address] Calcium [Mass/Vol] 9.2 mg/dL Normal 8.5-9.9 [facility] Comment on above: Performed By: #### B MPX #### [facility] [address] [place] [address] Chloride [Moles/Vol] 100 mmol/L Normal 95-107 [facility] Comment on above: Performed By: #### B MPX #### [facility] [address] [place] [address] CO2 [Moles/Vol] 27 mmol/L Normal 20-31 [facility] Comment on above: Performed By: #### B MPX #### [facility] [address] [place] [address] Creatinine [Mass/Vol] 0.51 mg/dL Normal 0.50-0.90 [facility] Comment on above: Performed By: #### B MPX #### [facility] [address] [place] [address] GFR >60.0 Normal >60 [facility] Comment on above: Result Comment: Myra atric [...] secretion. Performed By: #### B MPX #### [facility] [address] [place] [address] Glucose [Mass/Vol] 132 mg/dL Critically high 70-99 [facility] Comment on above: Performed By: #### B MPX #### [facility] [address] [place] [address] Magnesium [Moles/Vol] 4.6 mmol/L Normal 3.4-4.9 [facility] Comment on above: Performed By: #### B MPX #### [facility] [address] [place] [address] Sodium [Moles/Vol] 137 mmol/L Normal 135-144 [facility] Comment on above: Performed By: #### B MPX #### [facility] [address] [place] [address] Urea nitrogen [Mass/Vol] 12 mg/dL Normal 6-20 [facility] Comment on above: Performed By: #### B MPX #### [facility] [address] [place] [address] Basic Metabolic Panel w/ Ref hillary to MGon 07-03-2022 Anion gap [Moles/Vol] 10 mmol/L [facility] Calcium [Mass/Vol] 9.2 mg/dL 8.5 - 9.9 mg/dL [facility] Chloride [Moles/Vol] 100 mmol/L [facility] CO2 [Moles/Vol] 27 mmol/L [facility] Creatinine [Mass/Vol] 0.51 mg/dL 0.50 - 0.90 mg/dL [facility] GFR/1.73 sq M.predicted MDRD (S/P/Bld) [Vol rate/Area] 60 - PINF [facility] Comment on above: Pediatric calculator link https://www.kidney.org/professionals/kdoqi/gfr_calculatorped [...] 132 mg/dL High 70 - 99 mg/dL [facility] Interpretation and review of laboratory results Abnormal [facility] Potassium reflex Magnesium 4.6 [facility] Sodium [Moles/Vol] 137 mmol/L [facility] Urea nitrogen (BldV) [Mass/Vol] 12 mg/dL 6 - 20 mg/dL [facility] CBCon 07-03-2022 Hematocrit (Bld) [Volume fraction] 39.9 % 37.0 - 47.0 % [facility] Hemoglobin (Bld) [Mass/Vol] 12.9 g/dL 12.0 - 16.0 g/dL [facility] Interpretation and review of laboratory results Abnormal [facility] MCH (RBC) [Entitic mass] 25.7 pg Low 27. 0 - 31.3 pg [facility] MCHC (RBC) [Mass/Vol] 32.3 % Low 33.0 - 37.0 % [facility] MCV (RBC) [Entitic vol] 79.6 fL 79.4 - 94.8 fL [facility] Platelet distribution width (Bld) [Ratio] 16.5 % High 11.5 - 14.5 % [facility] Platelets (Bld) [#/Vol] 230 10*3/uL 130 - 400 K/uL [facility] RBC (Bld) [#/Vol] 5.02 10*6/uL [facility] WBC (Bld) [#/Vol] 9.2 10*3/uL 4.8 - 10.8 K/uL [facility] CBC With Platelet No Differe ntialon 07-03-2022 Erythrocyte distribution width (RBC) [Ratio] 16.5 % Critically high 11.5-14.5 [facility] Comment on above: Performed By: #### C BCND #### [facility] [address] [place] [address] Hematocrit (Bld) [Volume fraction] 39.9 % Normal 37.0-47.0 [facility] Comment on above: Performed By: #### C BCND #### [facility] [address] [place] [address] Hemoglobin (Bld) [Mass/Vol] 12.9 g/dL Normal 12.0-16.0 [facility] Comment on above: Performed By: #### C BCND #### [facility] [address] [place] [address] MCH (RBC) [Entitic mass] 25.7 pg Low 27.0-31.3 [facility] Comment on above: Performed By: #### C BCND #### [facility] [address] [place] [address] MCHC 32.3 % Low 33.0-37.0 [facility] Comment on above: Performed By: #### C BCND #### [facility] [address] [place] [address] MCV (RBC) [Entitic vol] 79.6 fL Normal 79.4-94.8 [facility] Comment on above: Performed By: #### C BCND #### [facility] [address] [place] [address] Platelets (Bld) [#/Vol] 230 10*3/uL Normal 130-400 [facility] Comment on above: Performed By: #### C BCND #### [facility] [address] [place] [address] RBC (Bld) [#/Vol] 5.02 10*6/uL Normal 4.20-5.40 [facility] Comment on above: Performed By: #### C BCND #### [facility] [address] [place] [address] WBC (Bld) [#/Vol] 9.2 10*3/uL Normal 4.8-10.8 [facility] Comment on above: Performed By: #### C BCND #### [facility] [address] [place] [address] Basic Metabolic Panel Reflex Mgon 07-02-2022 Anion gap [Moles/Vol] 8 mmol/L Low 9-15 [facility] Comment on above: Order Comment: Daja ction has been rescheduled by HERAM at 07/02/2022 05:49 Reason: Come back last per rn fouzia Performed By: #### B MPX #### [facility] [address] [place] [address] Calcium [Mass/Vol] 8.9 mg/dL Normal 8.5-9.9 [facility] Comment on above: Order Comment: Daja ction has been rescheduled by HERMICHELLE at 07/02/2022 05:49 Reason: Come back last per kip reinoso Performed By: #### B MPX #### [facility] [address] [place] [address] Chloride [Moles/Vol] 100 mmol/L Normal 95-107 [facility] Comment on above: Order Comment: Daja ction has been rescheduled by HERAM at 07/02/2022 05:49 Reason: Come back last per rn fouzia Performed By: #### B MPX #### [facility] [address] [place] [address] CO2 [Moles/Vol] 27 mmol/L Normal 20-31 [facility] Comment on above: Order Comment: Daja ction has been rescheduled by HERMICHELLE at 07/02/2022 05:49 Reason: Come back last per kip reinoso Performed By: #### B MPX #### [facility] [address] [place] [address] Creatinine [Mass/Vol] 0.61 mg/dL Normal 0.50-0.90 [facility] Comment on above: Order Comment: Daja zamarripa has been rescheduled by HERAM at 07/02/2022 05:49 Reason: Come back last per rn fouzia Performed By: #### B MPX #### [facility] [address] [place] [address] GFR >60.0 Normal >60 [facility] Comment on above: Order Comment: Daja zamarripa [...] secretion. Performed By: #### B MPX #### [facility] [address] [place] [address] Glucose [Mass/Vol] 144 mg/dL Critically high 70-99 [facility] Comment on above: Order Comment: Daja zamarripa has been rescheduled by HERAM at 07/02/2022 05:49 Reason: Come back last per rn fouzia Performed By: #### B MPX #### [facility] [address] [place] [address] Magnesium [Moles/Vol] 4.8 mmol/L Normal 3.4-4.9 [facility] Comment on above: Order Comment: Daja zamarripa has been rescheduled by HERAM at 07/02/2022 05:49 Reason: Come back last per rn fouzia Performed By: #### B MPX #### [facility] [address] [place] [address] Sodium [Moles/Vol] 135 mmol/L Normal 135-144 [facility] Comment on above: Order Comment: Daja zamarripa has been rescheduled by HERAM at 07/02/2022 05:49 Reason: Come back last per kip reinoso Performed By: #### B MPX #### [facility] [address] [place] [address] Urea nitrogen [Mass/Vol] 21 mg/dL Critically high 6-20 [facility] Comment on above: Order Comment: Daja zamarripa has been rescheduled by HERAM at 07/02/2022 05:49 Reason: Come back last per kip reinoso Performed By: #### B MPX #### [facility] [address] [place] [address] Basic Metabolic Panel w/ Ref hillary to MGon 07-02-2022 Anion gap [Moles/Vol] 8 mmol/L Low [facility] [employer] Calcium [Mass/Vol] 8.9 mg/dL 8.5 - 9.9 mg/dL [facility] [employer] Chloride [Moles/Vol] 100 mmol/L [facility] [employer] CO2 [Moles/Vol] 27 mmol/L [facility] [employer] Creatinine [Mass/Vol] 0.61 mg/dL 0.50 - 0.90 mg/dL [facility] GFR/1.73 sq M.predicted MDRD (S/P/Bld) [Vol rate/Area] 60 - PINF [facility] Comment on above: Pediatric calculator link https://www.kidney.org/professionals/kdoqi/gfr_calculatorped [...] Interpretation and review of laboratory results Abnormal [facility] Potassium reflex Magnesium 4.8 [facility] Sodium [Moles/Vol] 135 mmol/L [facility] Urea nitrogen (BldV) [Mass/Vol] 21 mg/dL High 6 - 20 mg/dL [facility] Collection has been rescheduled by VALDO at 07/02/2022 05:49 Reason: Come back last per rn [facility] CBCon 07-02-2022 Hematocrit (Bld) [Volume fraction] 40.3 % 37.0 - 47.0 % [facility] Hemoglobin (Bld) [Mass/Vol] 12.9 g/dL 12.0 - 16.0 g/dL [facility] Interpretation and review of laboratory results Abnormal [facility] MCH (RBC) [Entitic mass] 25.5 pg Low 27. 0 - 31.3 pg [facility] MCHC (RBC) [Mass/Vol] 32.1 % Low 33.0 - 37.0 % [facility] MCV (RBC) [Entitic vol] 79.6 fL 79.4 - 94.8 fL [facility] Platelet distribution width (Bld) [Ratio] 16.3 % High 11.5 - 14.5 % [facility] Platelets (Bld) [#/Vol] 230 10*3/uL 130 - 400 K/uL [facility] RBC (Bld) [#/Vol] 5.06 10*6/uL [facility] WBC (Bld) [#/Vol] 9.1 10*3/uL 4.8 - 10.8 K/uL [facility] Collection has been rescheduled by VALDO at 07/02/2022 05:49 Reason: Come back last per rn [facility] CBC With Platelet No Differe ntialon 07-02-2022 Erythrocyte distribution width (RBC) [Ratio] 16.3 % Critically high 11.5-14.5 [facility] Comment on above: Order Comment: Colle ction has been rescheduled by VALDO at 07/02/2022 05:49 Reason: Come back last per rn fouzia Performed By: #### C BCND #### [facility] [address] [place] [address] Hematocrit (Bld) [Volume fraction] 40.3 % Normal 37.0-47.0 [facility] Comment on above: Order Comment: Daja zamarripa has been rescheduled by HERMICHELLE at 07/02/2022 05:49 Reason: Come back last per rn fouzia Performed By: #### C BCND #### [facility] [address] [place] [address] Hemoglobin (Bld) [Mass/Vol] 12.9 g/dL Normal 12.0-16.0 [facility] Comment on above: Order Comment: Daja zamarripa has been rescheduled by HERMICHELLE at 07/02/2022 05:49 Reason: Come back last per rn fouzia Performed By: #### C BCND #### [facility] [address] [place] [address] MCH (RBC) [Entitic mass] 25.5 pg Low 27.0-31.3 [facility] Comment on above: Order Comment: Daja zamarripa has been rescheduled by HERMICHELLE at 07/02/2022 05:49 Reason: Come back last per rn fouzia Performed By: #### C BCND #### [facility] [address] [place] [address] MCHC 32.1 % Low 33.0-37.0 [facility] Comment on above: Order Comment: Daja zamarripa has been rescheduled by HERMICHELLE at 07/02/2022 05:49 Reason: Come back last per rn fouzia Performed By: #### C BCND #### [facility] [address] [place] [address] MCV (RBC) [Entitic vol] 79.6 fL Normal 79.4-94.8 [facility] Comment on above: Order Comment: Daja zamarripa has been rescheduled by HERMICHELLE at 07/02/2022 05:49 Reason: Come back last per rn fouzia Performed By: #### C BCND #### [facility] [address] [place] [address] Platelets (Bld) [#/Vol] 230 10*3/uL Normal 130-400 [facility] Comment on above: Order Comment: Daja zamarripa has been rescheduled by HERAM at 07/02/2022 05:49 Reason: Come back last per rn fouzia Performed By: #### C BCND #### [facility] [address] [place] [address] RBC (Bld) [#/Vol] 5.06 10*6/uL Normal 4.20-5.40 [facility] Comment on above: Order Comment: Daja zamarripa has been rescheduled by HERAM at 07/02/2022 05:49 Reason: Come back last per rn fouzia Performed By: #### C BCND #### [facility] [address] [place] [address] WBC (Bld) [#/Vol] 9.1 10*3/uL Normal 4.8-10.8 [facility] Comment on above: Order Comment: Daja zamarripa has been rescheduled by HERAM at 07/02/2022 05:49 Reason: Come back last per rn fouzia Performed By: #### C BCND #### [facility] [address] [place] [address] US DUP UPPER EXTREMITY LEFT VENOUSon 07-02-2022 [...] Jean Sifuentes MD 07/02/22 Final result Normal [facility] No evidence of DVT. [facility] EXAMINATION: VENOUS ULTRASOUND OF THE [...] normal color flow study and spectral analysis. [facility] Jean Sifuentes MD - 07/02/2022 EXAMINATION: VENOUS ULTRASOUND [...] spectral analysis. IMPRESSION: No evidence of DVT. [employer] Phone: JULIO [employer] Phone: Radiology Study observation (narrative) JULIO ORTIZ [employer] Phone: XR KNEE RIGHT (1-2 VIEWS)on 07-01-2022 [...] Jean Sifuentes MD 07/01/22 Final result Normal [facility] Normal postsurgical appearance [facility] EXAMINATION: TWO XRAY VIEWS OF [...] are intact. Overlying surgical dee are seen [facility] Jean Sifuentes MD - 07/01/2022 [...] dee are seen IMPRESSION: Normal postsurgical appearance [employer] Phone: Radiology Study observation (narrative) JULIO ORTIZ [employer] Phone: XR KNEE RIGHT (1-2 VIEWS)Ord ered By: Jean Sifuentes on 07-01-2022 [employer] Phone: MRSA DNA Probe, Nasalon 03-0 MRSA, DNA, Nasal Negative NEG [employer] Comment on above: NEGATIVE: MRSA DNA n ot detected by nucleic acid amplification. Results should be used as an adjunct to nosocomial control efforts to identify patients needing enhanced precautions. The test is not intended to identify patients with staphylococcal infections. Results should not be used to guide or monitor treatment for MRSA infections. [facility] [address] [place] [address] [id number] ([phone] Specimen Description Swab [facility] [employer] [facility] [employer] MRSA, DNA, Nasalon 3 MRSA, DNA, Nasal Negative Normal NEG [facility] Comment on above: Result Comment: NEGA TIVE: MRSA DNA not detected by nucleic acid amplification. Results should be used as an adjunct to nosocomial control efforts to identify patients needing enhanced precautions. The test is not intended to identify patients with staphylococcal infections. Results should not be used to guide or monitor treatment for MRSA infections. [address] [id number] ([phone] Performed By: #### I MRSA #### [facility] [address] [place] [address] EKG 12 LeadOrdered By: Leigh Ann Nash on 06-25-2022 Atrial Rate 73 BPM [employer] Work Phone: P Cutler 33 degrees [employer] Work Phone: P-R Interval 160 ms [employer] Work Phone: Q-T Interval 406 ms [employer] Work Phone: QRS Duration 102 ms [employer] Work Phone: QTc Calculation (Bazett) 447 ms [employer] Work Phone: R Cutler 74 degrees [employer] Phone: T Cutler 65 degrees [employer] Phone: Ventricular Rate 73 BPM [employer] Work Phone: [employer] Work Phone: EKG 12 Leadon 06-25-2022 Normal sinus rhythm Incomplete right bundle branch block Confirmed by LEIGH ANN NASH ([id number]) on 06/25/2022 6:49:48 PM JUAN HIDALGO Leigh Ann Nash SheilaDO - 06/25/2022 Normal sinus rhythm Incomplete right bundle branch block Confirmed by LEIGH ANN NASH ([id number]) on 06/25/2022 6:49:48 PM JULIO [employer] Work Phone: Established Visit (Orthopaed ic Surgery)on 06-25-2022 Established Visit (Orthopaedic Surgery) Chief Complaint Pre-op RT TK-Revision 07/01/22 @ [facility] History of Present Illness This [...] plans on performing outpatient physical therapy at [facility]. All of the patient's questions and concerns were answered. This note was prepared using voice recognition software. The details of this note are correct and have been reviewed, and corrected to the best of my ability. Some grammatical areas may persist related to the [employer] software Merrill Alejandro PA-C . Active Problems Problems Acute pain of both knees (338.19,719.46) (M25.561,M25.562) Allergies Medication Penicillins Recorded By: Tarsha Murray; 05/18/2022 8:47:33 AM Signatures Electronically signed by : Merrill Alejandro PA-C; Jun 25 2022 2:21PM EST (Author) Normal [employer] PT Initial Evaluationon 03-0 PT Initial Evaluation [...] today's treatment with some difficulty. Evaluation Code: 80647 PT Eval: Low Complexity, 32 min(s). Resources provided today: education Signatures Electronically signed by : Natali Tyson, PT DPT; Jun 30 2022 10:08AM EST (Author) Normal [employer] APTTon 06-24-2022 aPTT Coag (Bld) [Time] 30.1 s YECENIA N [facility] Comment on above: Effective 02/27/2020: Heparin Therapeutic Range: 64.0 98.0 seconds. BON [facility] CBC With Platelet and Differ entialon 06-24-2022 Basophils (Bld) [#/Vol] 0.1 10*3/uL Normal 0.0-0.2 [facility] Comment on above: Performed By: #### C BCWD #### [facility] [address] [place] [address] Basophils/100 WBC (Bld) 0.6 % Normal [facility] Comment on above: Performed By: #### C BCWD #### [facility] [address] [place] [address] Eosinophils (Bld) [#/Vol] 0.1 10*3/uL Normal 0.0-0.7 [facility] Comment on above: Performed By: #### C BCWD #### [facility] [address] [place] [address] Eosinophils/100 WBC (Bld) 1.6 % Normal [facility] Comment on above: Performed By: #### C BCWD #### [facility] [address] [place] [address] Erythrocyte distribution width (RBC) [Ratio] 16.4 % Critically high 11.5-14.5 [facility] Comment on above: Performed By: #### C BCWD #### [facility] [address] [place] [address] Hematocrit (Bld) [Volume fraction] 44.4 % Normal 37.0-47.0 [facility] Comment on above: Performed By: #### C BCWD #### [facility] [address] [place] [address] Hemoglobin (Bld) [Mass/Vol] 14.2 g/dL Normal 12.0-16.0 [facility] Comment on above: Performed By: #### C BCWD #### [facility] [address] [place] [address] Lymphocytes (Bld) [#/Vol] 2.3 10*3/uL Normal 1.0-4.8 [facility] Comment on above: Performed By: #### C BCWD #### [facility] [address] [place] [address] Lymphocytes/100 WBC (Bld) 25.8 % Normal [facility] Comment on above: Performed By: #### C BCWD #### [facility] [address] [place] [address] MCH (RBC) [Entitic mass] 25.1 pg Low 27.0-31.3 [facility] Comment on above: Performed By: #### C BCWD #### [facility] [address] [place] [address] MCHC 32.0 % Low 33.0-37.0 [facility] Comment on above: Performed By: #### C BCWD #### [facility] [address] [place] [address] MCV (RBC) [Entitic vol] 78.5 fL Low 79.4-94.8 [facility] Comment on above: Performed By: #### C BCWD #### [facility] [address] [place] [address] Monocytes (Bld) [#/Vol] 0.8 10*3/uL Normal 0.2-0.8 [facility] Comment on above: Performed By: #### C BCWD #### [facility] [address] [place] [address] Monocytes/100 WBC (Bld) 9.4 % Normal [facility] Comment on above: Performed By: #### C BCWD #### [facility] [address] [place] [address] Neutrophils (Bld) [#/Vol] 5.6 10*3/uL Normal 1.4-6.5 [facility] Comment on above: Performed By: #### C BCWD #### [facility] [address] [place] [address] Neutrophils/100 WBC (Bld) 62.6 % Normal [facility] Comment on above: Performed By: #### C BCWD #### [facility] [address] [place] [address] Platelets (Bld) [#/Vol] 281 10*3/uL Normal 130-400 [facility] Comment on above: Performed By: #### C BCWD #### [facility] [address] [place] [address] RBC (Bld) [#/Vol] 5.66 10*6/uL Critically high 4.20-5.40 [facility] Comment on above: Performed By: #### C BCWD #### [facility] [address] [place] [address] WBC (Bld) [#/Vol] 8.9 10*3/uL Normal 4.8-10.8 [facility] Comment on above: Performed By: #### C BCWD #### [facility] [address] [place] [address] CBC with Auto Differentialon 06-24-2022 Basophils (Bld) [#/Vol] 0.1 10*3/uL 0.0 - 0.2 K/uL [facility] Basophils/100 WBC (Bld) 0.6 % B ON [facility] Eosinophils (Bld) [#/Vol] 0.1 10*3/uL 0.0 - 0.7 K/uL [facility] Eosinophils/100 WBC (Bld) 1.6 % [facility] Hematocrit (Bld) [Volume fraction] 44.4 % 37.0 - 47.0 % [facility] Hemoglobin (Bld) [Mass/Vol] 14.2 g/dL 12.0 - 16.0 g/dL [facility] Interpretation and review of laboratory results Abnormal [facility] Lymphocytes (Bld) [#/Vol] 2.3 10*3/uL 1.0 - 4.8 K/uL [facility] Lymphocytes/100 WBC (Bld) 25.8 % [facility] MCH (RBC) [Entitic mass] 25.1 pg Low 27. 0 - 31.3 pg [facility] MCHC (RBC) [Mass/Vol] 32.0 % Low 33.0 - 37.0 % [facility] MCV (RBC) [Entitic vol] 78.5 fL Low 79.4 - 94.8 fL [facility] Monocytes (Bld) [#/Vol] 0.8 10*3/uL 0.2 - 0.8 K/uL [facility] Monocytes/100 WBC (Bld) 9.4 % B ON [facility] Neutrophils Absolute 5.6 K/uL 1.4 - 6 .5 K/uL [facility] Neutrophils/100 WBC (Bld) 62.6 % [facility] Platelet distribution width (Bld) [Ratio] 16.4 % High 11.5 - 14.5 % [facility] Platelets (Bld) [#/Vol] 281 10*3/uL 130 - 400 K/uL [facility] RBC (Bld) [#/Vol] 5.66 10*6/uL High [facility] WBC (Bld) [#/Vol] 8.9 10*3/uL 4.8 - 10.8 K/uL [facility] Comprehensive Metabolic Pane gretel 06-24-2022 Albumin [Mass/Vol] 4.2 g/dL Normal 3.5-4.6 [facility] Comment on above: Performed By: #### U MARIA ELENA #### [facility] [address] [place] [address] ALP [Catalytic activity/Vol] 89 U/L Normal 40-130 [facility] Comment on above: Performed By: #### U MARIA ELENA #### [facility] [address] [place] [address] ALT [Catalytic activity/Vol] 47 U/L Critically high 0-33 [facility] Comment on above: Performed By: #### U MARIA ELENA #### [facility] [address] [place] [address] Anion gap [Moles/Vol] 13 mmol/L Normal 9-15 [facility] Comment on above: Performed By: #### U MARIA ELENA #### [facility] [address] [place] [address] AST [Catalytic activity/Vol] 44 U/L Critically high 0-35 [facility] Comment on above: Performed By: #### U MARIA ELENA #### [facility] [address] [place] [address] Bilirubin [Mass/Vol] 0.5 mg/dL Normal 0.2-0.7 [facility] Comment on above: Performed By: #### U MARIA ELENA #### [facility] [address] [place] [address] Calcium [Mass/Vol] 9.2 mg/dL Normal 8.5-9.9 [facility] Comment on above: Performed By: #### U MARIA ELENA #### [facility] [address] [place] [address] Chloride [Moles/Vol] 100 mmol/L Normal 95-107 [facility] Comment on above: Performed By: #### U MARIA ELENA #### [facility] [address] [place] [address] CO2 [Moles/Vol] 26 mmol/L Normal 20-31 [facility] Comment on above: Performed By: #### U MARIA ELENA #### [facility] [address] [place] [address] Creatinine [Mass/Vol] 0.54 mg/dL Normal 0.50-0.90 [facility] Comment on above: Performed By: #### U MARIA ELENA #### [facility] [address] [place] [address] GFR >60.0 Normal >60 [facility] Comment on above: Result Comment: Myra atric [...] Performed By: #### U MARIA ELENA #### [facility] [address] [place] [address] Globulin (S) [Mass/Vol] 3.9 g/dL Critically high 2.3-3.5 [facility] Comment on above: Performed By: #### U MARIA ELENA #### [facility] [address] [place] [address] Glucose [Mass/Vol] 124 mg/dL Critically high 70-99 [facility] Comment on above: Performed By: #### U MARIA ELENA #### [facility] [address] [place] [address] Potassium [Moles/Vol] 4.4 mmol/L Normal 3.4-4.9 [facility] Comment on above: Performed By: #### U MARIA ELENA #### [facility] [address] [place] [address] Protein [Mass/Vol] 8.1 g/dL Critically high 6.3-8.0 [facility] Comment on above: Performed By: #### U MARIA ELENA #### [facility] [address] [place] [address] Sodium [Moles/Vol] 139 mmol/L Normal 135-144 [facility] Comment on above: Performed By: #### U MARIA ELENA #### [facility] [address] [place] [address] Urea nitrogen [Mass/Vol] 14 mg/dL Normal 6-20 [facility] Comment on above: Performed By: #### U MARIA ELENA #### [facility] [address] [place] [address] Albumin [Mass/Vol] 4.2 g/dL 3.5 - 4.6 g/dL [facility] ALP (Bld) [Catalytic activity/Vol] 89 U/L 40 - 130 U/L [facility] ALT [Catalytic activity/Vol] 47 U/L High 0 - 33 U/L [facility] Anion gap [Moles/Vol] 13 mmol/L [facility] AST [Catalytic activity/Vol] 44 U/L High 0 - 35 U/L [facility] Bilirubin [Mass/Vol] 0.5 mg/dL 0.2 - 0 .7 mg/dL [facility] Calcium [Mass/Vol] 9.2 mg/dL 8.5 - 9.9 mg/dL [facility] Chloride [Moles/Vol] 100 mmol/L [facility] CO2 [Moles/Vol] 26 mmol/L [facility] Creatinine [Mass/Vol] 0.54 mg/dL 0.50 - 0.90 mg/dL [facility] GFR/1.73 sq M.predicted MDRD (S/P/Bld) [Vol rate/Area] 60 - PINF [facility] Comment on above: Pediatric calculator link https://www.kidney.org/professionals/kdoqi/gfr_calculatorped [...] 3.9 g/dL High 2.3 - 3.5 g/dL [facility] Glucose [Mass/Vol] 124 mg/dL High 70 - 99 mg/dL [facility] Interpretation and review of laboratory results Abnormal [facility] Potassium [Moles/Vol] 4.4 mmol/L [facility] Protein [Mass/Vol] 8.1 g/dL High 6.3 - 8.0 g/dL [facility] Sodium [Moles/Vol] 139 mmol/L [facility] Urea nitrogen (BldV) [Mass/Vol] 14 mg/dL 6 - 20 mg/dL [facility] Laboratory - Coagulationon 0 06-24-2022 INR Coag (Bld) [Relative time] 1.1 {INR} [facility] Work Phone: Laboratory - Hematology and Cell countson 06-24-2022 Basophils/100 WBC (Bld) 0.6 % Normal [facility] [employer] Work Phone: Eosinophils/100 WBC (Bld) 1.6 % Normal [facility] Work Phone: Lymphocytes/100 WBC (Bld) 25.8 % Normal [facility] Work Phone: Monocytes/100 WBC (Bld) 9.4 % Normal U [facility] Work Phone: Neutrophils/100 WBC (Bld) 62.6 % Normal [facility] Work Phone: MRSA, DNA, Nasalon 3 Specimen Description Swab Normal [facility] Comment on above: Performed By: #### I MRSA #### [facility] [address] [place] [id number] Microscopic Urinalysison Bacteria, UA FEW Abnormal Negative /HPF [facility] [employer] Epithelial Cells, UA 0-2 [facility] [employer] Hyaline Casts, UA 0-1 [facility] [employer] RBC, UA 0-2 [facility] [employer] WBC, UA 3-5 [facility] [employer] No Panel Informationon 06-24 Interpretation and review of laboratory results Abnormal [facility] [employer] TRACE Abnormal Negative [facility] [employer] Work Phone: Negative Normal Negative [facility] Work Phone: 0.2 {E.U./dL} Normal < 2.0 [facility] Work Phone: 30 mg/dL Abnormal Negative [facility] Work Phone: 7.0 1 Normal 5.0-9.0 [facility] Work Phone: Not Indicated Normal [facility] Work Phone: 1.010 1 Normal 1.005-1.03 [facility] [employer] Work Phone: Clear Normal Clear [facility] Work Phone: Yellow Normal Straw/[facility]ble [facility] Work Phone: 0-2 Normal [...] Work Phone: 30.1 {sec} Normal 24.4-36.8 [facility] Work Phone: Comment on above: Effective 02/27/2020: Heparin Therapeutic Range: 64.0 ? 98.0 seconds. 4.2 g/dL Normal 3.5-4.6 [facility] Work Phone: 3.9 g/dL above high threshold 2.3-3.5 [facility] Work Phone: 44 U/L above high threshold 0-35 [facility] Work Phone: 47 U/L above high threshold 0-33 [facility] Work Phone: 89 U/L Normal 40-130 [facility] Work Phone: 0.5 mg/dL Normal 0.2-0.7 [facility] Work Phone: 8.1 g/dL above high threshold 6.3-8.0 [facility] Work Phone: 9.2 mg/dL Normal 8.5-9.9 [facility] Work Phone: >60.0 Normal >60 [facility] Work Phone: Comment on above: Pediatric calculator [...] renal tubular secretion. 0.54 mg/dL Normal 0.50-0.90 [facility] [employer] Work Phone: [phone] 14 mg/dL Normal 6-20 [facility] [employer] Work Phone: 124 mg/dL above high threshold 70-99 [facility] [employer] Work Phone: 13 {mEq/L} Normal 9-15 [facility] [employer] Work Phone: 26 {mEq/L} Normal 20-31 [facility] [employer] Work Phone: 100 {mEq/L} Normal 95-107 [facility] [employer] Work Phone: 4.4 {mEq/L} Normal 3.4-4.9 [facility] [employer] Work Phone: 139 {mEq/L} Normal 135-144 [facility] [employer] Work Phone: Negative Normal NEG [facility] Work Phone: Comment on above: NEGATIVE: MRSA DNA n ot detected by nucleic acid amplification. Results should be used as an adjunct to nosocomial control efforts toidentify patients needing enhanced precautions.The test is not intended to identify patients with staphylococcalinfections. Results should not be used to guide or monitor treatmentfor MRSA infections.[employer] [facility] [place], [place] [id number] ([phone] Swab Normal [facility] Work Phone: Partial Thromboplastin Timeo n 06-24-2022 aPTT Coag (Bld) [Time] 30.1 s Normal 24.4-36.8 [facility] Comment on above: Result Comment: Effe ctive 02/27/2020: Heparin Therapeutic Range: 64.0 ? 98.0 seconds. Performed By: #### U MARIA ELENA #### [facility] [address] [place] [address] Prothrombin Timeon 3 INR Coag (PPP) [Relative time] 1.1 {INR} Normal [facility] Comment on above: Performed By: #### P T #### [facility] [address] [place] [address] PT Coag (PPP) [Time] 14.8 s Normal 12.3-14.9 [facility] Comment on above: Performed By: #### P T #### [facility] [address] [place] [address] Protime-INRon 06-24-2022 INR Coag (Bld) [Relative time] 1.1 {INR} [facility] PT Coag (PPP) [Time] 14.8 s [facility] [employer] TYPE AND SCREENon 06-24-2022 ABO/Rh Negative [facility] Comment on above: @06/24/22 14:01 by Elaina BLACKMONLY: BACK TYPE CONFIRMED IN TUBE. LMB Confirmation type ne eds to be drawn. [facility] Type and 3 cell Screen OB Ca ptureon 06-24-2022 Type and 3 cell Screen OB Capture PATIENT: PINKY Prince LOC: [place] BILL# : [id number] : 1970 SEX: F ORDERED BY: GILMAR COX ORDERED : 06/24/2022 11:08 COLLECTED: 06/24/2022 11:45 ORDER : [id number] RECEIVED : 06/24/2022 11:45 Confirmation type needs to be drawn. --- TEST NAME RESULT UNITS RANGES ABN FL ST ABORH Capture A NEG F @06/24/22 14:01 by RUDY: BACK TYPE CONFIRMED IN TUBE. LMB Antibody 3 Cell Scrn Captu NEG F -- Normal [facility] Comment on above: Performed By: #### T SO3C #### [facility] [address] [place] [address] Urinalysis with Reflex to Cu ltureon 06-24-2022 Bilirubin Urine Negative Negative [facility] [employer] Blood, Urine Negative Negative [facility] Clarity, UA Clear Clear [facility] Color, UA Yellow Straw/[place]ble ow [facility] [employer] Glucose, Ur Negative Negative mg/dL [facility] Ketones Ql (U) Negative Negative mg/dL [employer] [facility]Day[facility]ITALOver[facility].fm Leukocyte esterase Test strip Ql (U) TRACE Abnormal Negative [facility] [employer] Nitrite, Urine Negative Negative [place] [facility] [employer] pH, UA 7.0 5.0 - 9.0 [facility] Protein (U) [Mass/Vol] 30 mg/dL Abnormal Negative [facility] [employer] Specific [place], UA 1.010 1.005 - 1.030 [facility] Urine Reflex to Culture Not Indicated [facility] Urobilinogen, Urine 0.2 NINF [facility] [employer] Urinalysis, reflex to cultur gurinder 06-24-2022 Urine Reflexed to Culture Not Indicated Normal [facility] Comment on above: Performed By: #### U AR #### [facility] [address] [place] [address] Bilirubin Ql (U) Negative Normal Negative [facility] Comment on above: Performed By: #### U AR #### [facility] [address] [place] [address] Clarity (U) Clear Normal Clear [facility] Comment on above: Performed By: #### U AR #### [facility] [address] [place] [address] Color (U) Yellow Normal Straw/Trimble [facility] Comment on above: Performed By: #### U AR #### [facility] [address] [place] [address] Glucose Ql (U) Negative Normal Negative [facility] Comment on above: Performed By: #### U AR #### [facility] [address] [place] [address] Hemoglobin Ql (U) Negative Normal Negative [facility] Comment on above: Performed By: #### U AR #### [facility] [address] [place] [address] Ketones Ql (U) Negative Normal Negative [facility] Comment on above: Performed By: #### U AR #### [facility] [address] [place] [address] Leukocyte esterase Test strip Ql (U) TRACE Abnormal Negative [facility] Comment on above: Performed By: #### U AR #### [facility] [address] [place] [address] Nitrite Ql (U) Negative Normal Negative [facility] Comment on above: Performed By: #### U AR #### [facility] [address] [place] [address] pH (U) 7.0 [pH] Normal 5.0-9.0 [facility] Comment on above: Performed By: #### U AR #### [facility] [address] [place] [address] Protein Ql (U) 30 mg/dL Abnormal Negative [facility] Comment on above: Performed By: #### U AR #### [facility] [address] [place] [address] Specific gravity (U) [Rel density] 1.010 Normal 1.005-1.03 [facility] Comment on above: Performed By: #### U AR #### [facility] [address] [place] [address] Urobilinogen Qn (U) 0.2 {Reji'U}/dL Normal < 2.0 [facility] Comment on above: Performed By: #### U AR #### [facility] [address] [place] [address] Urine Microscopicon 06-25-19 23 Urine Bacteria FEW Abnormal Negative [facility] Comment on above: Performed By: #### U MARIA ELENA #### [facility] [address] [place] [address] Urine Epithelial Cells Auto 0-2 Normal 0-5 [facility] Comment on above: Performed By: #### U MARIA ELENA #### [facility] [address] [place] [address] Urine Hyaline Casts Auto 0-1 Normal 0-5 [facility] Comment on above: Performed By: #### U MARIA ELENA #### [facility] [address] [place] [address] Urine RBC Auto 0-2 Normal 0-5 [facility] Comment on above: Performed By: #### U MARIA ELENA #### [facility] [address] [place] [address] Urine WBC Auto 3-5 Normal 0-5 [facility] Comment on above: Performed By: #### U MARIA ELENA #### [facility] [address] [place] [address] BILATERAL KNEE COMPLT, 4 OR MORE VIEWSon 05-18-2022 BILATERAL KNEE COMPLT, 4 OR MORE VIEWS Patient Name: GEETA SHELTON STUDY: BILATERAL KNEE; COMPLT, 4 OR MORE VIEWS; ; 05/18/2022 9:07 am INDICATION: pain M25.561: Acute pain of both knees M25.562:. ACCESSION NUMBER(S): [id number] ORDERING CLINICIAN: ACOSTA SCHAFER FINDINGS: Weightbearing four [...] Electronically signed by: ACOSTA SCHAFER MD Normal [facility]on 05-18-2022 Initial Visit (Orthopaedic Surgery) Diagnoses/Problems Assessed [...] Knee 4 Views Normal [facility] Work Phone: Albumin [Mass/volume] in Ser um or PlasmaOrdered By: Elizabeth Alvarado on 05-07-2022 Albumin [Mass/Vol] 3.9 g/dL 3.2-5.5 [facility] Alkaline phosphatase [Enzyma tic activity/volume] in [...] Basophils/100 WBC (Bld) 0.7 % . F [facility] Bilirubin.total [Mass/volume ] in Serum or PlasmaOrdered By: Elizabeth Alvarado on 05-07-2022 Bilirubin [Mass/Vol] 0.6 mg/dL 0.3-1.2 [facility] Calcium [Mass/volume] in Ser um or PlasmaOrdered By: Elizabeth Alvarado on 05-07-2022 Calcium [Mass/Vol] 9.1 mg/dL 8.2-10.2 [facility] Carbon dioxide, total [Moles /volume] in Serum or PlasmaOrdered By: Elizabeth Alvarado on 05-07-2022 CO2 [Moles/Vol] 28.1 mmol/L 22.0-30.0 [facility] Chloride [Moles/volume] in S hugo or PlasmaOrdered By: Elizabeth Alvarado on 05-07-2022 Chloride [Moles/Vol] 100 mmol/L 95-114 [facility] Cholesterol [Mass/volume] in Serum or PlasmaOrdered By: Elizabeth Alvarado on 05-07-2022 Cholesterol [Mass/Vol] 181 mg/dL 140-200 [facility] Comment on above: Chol less than [...] on 05-07-2022 Creatinine [Mass/Vol] 0.65 mg/dL 0.44-1.03 [facility] Eosinophils Auto (Bld) [#/Vo l]Ordered By: [...] 05-07-2022 Globulin (S) [Mass/Vol] 3.7 g/dL F [facility] Glucose [Mass/volume] in Ser um or PlasmaOrdered By: Elizabeth Alvarado on 05-07-2022 Glucose [Mass/Vol] 137 mg/dL 70-100 [facility] Comment on above: ADA recommended refe [...] MCHC (RBC) [Mass/Vol] 31.0 g/dL 32.0-35.0 [facility] MCV Auto (RBC) [Entitic vol] Ordered By: Elizabeth Alvarado on 05-07-2022 MCV (RBC) [Entitic vol] 79.4 fL 80-100 F [facility] Monocytes Auto (Bld) [#/Vol] Ordered By: Elizabeth Alvarado on 05-07-2022 Monocytes (Bld) [#/Vol] 0.7 10*3/uL 0.0-0.8 [facility] Monocytes/100 WBC Auto (Bld) Ordered By: Elizabeth Alvarado on 05-07-2022 Monocytes/100 WBC (Bld) 9.3 % . F [facility] Neutrophils Auto (Bld) [#/Vo l]Ordered [...] on 05-07-2022 Potassium [Moles/Vol] 4.3 mmol/L 3.5-5.1 [facility] Protein [Mass/volume] in Ser um or PlasmaOrdered By: Elizabeth Alvarado on 05-07-2022 Protein [Mass/Vol] 7.6 g/dL 6.1-7.9 [facility] RBC Auto (Bld) [#/Vol]Ordere d By: Elizabeth Alvarado on 05-07-2022 RBC (Bld) [#/Vol] 5.72 10*6/uL 3.60-5.00 [facility] Serum or plasma alanine ulloa otransferase measurement without P-5'-P (enzymatic activiOrdered By: Elizabeth Alvarado on 05-07-2022 ALT No additional P-5'-P [Catalytic activity/Vol] 61 U/L 10-60 [facility] Serum or plasma albumin/glob ulin mass ratioOrdered By: Elizabeth Alvarado on 05-07-2022 Albumin/Globulin [Mass ratio] 1.1 {ratio} [facility] Serum or plasma anion gap de terminationOrdered By: Elizabeth Alvarado on 05-07-2022 Anion gap [Moles/Vol] 11.2 mmol/L 6.0-15.0 [facility] Serum or plasma high density lipoprotein [...] on 05-07-2022 Sodium [Moles/Vol] 135 mmol/L 136-146 [facility] TSH DL <= 0.005 mIU/L QnOrde red By: Elizabeth Alvarado on 05-07-2022 TSH Qn 4.21 m[IU]/L 0.45-5.33 [facility] Triglyceride [Mass/volume] i n Serum or PlasmaOrdered By: Elizabeth Alvarado on 05-07-2022 Triglyceride [Mass/Vol] 103 mg/dL 35-149 [facility] Comment on above: TRIG ATP [...] 05-07-2022 WBC (Bld) [#/Vol] 7.9 10*3/uL 3.8-11.6 [facility] Basophils Auto (Bld) [#/Vol] Ordered By: Tyler Villeda on 04-13-2022 Basophils (Bld) [#/Vol] 0.1 10*3/uL 0.0-0.2 [facility] Basophils/100 WBC Auto (Bld) Ordered By: Tyler Villeda on 04-13-2022 Basophils/100 WBC (Bld) 0.6 % . F [facility] C reactive protein [Mass/vol ume] [...] MCHC (RBC) [Mass/Vol] 32.2 g/dL 32.0-35.0 [facility] MCV Auto (RBC) [Entitic vol] Ordered By: Tyler Villeda on 04-13-2022 MCV (RBC) [Entitic vol] 77.4 fL 80-100 [facility] Monocytes Auto (Bld) [#/Vol] Ordered By: Tyler Villeda on 04-13-2022 Monocytes (Bld) [#/Vol] 0.9 10*3/uL 0.0-0.8 [facility] Monocytes/100 WBC Auto (Bld) Ordered By: Tyler Villeda on 04-13-2022 Monocytes/100 WBC (Bld) 10.0 % . F [facility] Neutrophils Auto (Bld) [#/Vo l]Ordered [...] 04-13-2022 RBC (Bld) [#/Vol] 5.73 10*6/uL 3.60-5.00 [facility] WBC Auto (Bld) [#/Vol]Ordere d By: Tyler Villeda on 04-13-2022 WBC (Bld) [#/Vol] 8.6 10*3/uL 3.8-11.6 [facility] Serum or plasma follitropin measurement (units/volume)Ordered By: Elizabeth Alvarado on 12-03-2021 Follitropin Qn 18.3 m[IU]/mL [facility] Comment on above: FEMALE NORMALS (JUDIE ENOPAUSE) MID-FOLLICULAR PHASE: 3.9-8.8 mIU/mL MID-CYCLE PEAK: 4.5-22.5 mIU/mL MID-LUTEAL PHASE: 1.8-5.1 mIU/mL FEMALE NORMALS (POSTMENOPAUSE): 16.7-113.6 mIU/mL MALE NORMALS: 1.3-19.3 mIU/mL TSH DL <= 0.005 mIU/L QnOrde red By: Elizabeth Alvarado on 12-03-2021 TSH Qn 4.23 m[IU]/L 0.45-5.33 [facility] Total estrogen measurementOr dered By: Elizabeth Alvarado on 12-03-2021 Estrogen [Mass/Vol] 83 pg/mL . [facility] Comment on above: Prepubertal < 40 Female Cycle: 1-10 Days 16 - 328 11-20 Days 34 - 501 21-30 Days 48 - 350 Post-Menopausal 40 - 244 Performed at: - [facility] [id number] Advisory Intern: Virgie Isaac MD, Phone: [phone] Coding Summary.on 01-26-2019 Coding Summary. CODING DATE: 019 FINAL [facility] STATUS: Home (Routine DC) PAYOR: Medicare APC DESCRIPTION 5113 Level 3 Musculoskeletal Procedures ADMIT DX: REASON FOR VISIT DX: M76.61 Achilles tendinitis, right leg FINAL DX: PRINCIPAL: M76.61 Achilles tendinitis, right leg SECONDARY: M24.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, right ankle I10 Essential (primary) hypertension J45.909 Unspecified asthma, uncomplicated K21.9 Gastro-esophageal reflux disease without esophagitis Z79.899 Other custodial (current) drug therapy PYMT PROC APC STAT DESCRIPTION DOCTOR NAME DATE 5112 J1 Tenotomy, percutaneous, Thuan Travis DPM 01/24/2019 Achilles tendon (separate procedure); general anesthesia RT Right side (used to identify procedures performed on the right side of the body) [address] Anesthesia for Denae Bennett DO Shahab 01/24/2019 [...] Bernard Revised Date Saved: 01/26/2019 11:32 am [facility] Inpatient Patient Summaryon 01-24-2019 Inpatient Patient Summary [facility] Clinical Discharge Instructions PERSON INFORMATION Name: GEETA SHELTON PHYSICIANS Admitting Physician: Thuan Travis DPM Attending Physician: Thuan Travis DPM PCP: Nichole Caballero Discharge Diagnosis: Comment: PATIENT EDUCATION INFORMATION Instructions: Post Op Patient Instructions - FT (Custom); Foot Cryocuff Patient Instructions - LUIS (Custom); Thaddeus - Post Operative Instructions (Revised 12/20/13) (Custom) ([id number]) Medication Leaflets: Follow up: MEDICATION LIST Comment: Normal [facility] Lyteson 01-24-2019 Anion gap [Moles/Vol] 14 mmol/L Normal 6-16 [facility] Comment on above: Performed By: #### 2 033386, 1717920, 1367749, 18823225, 4525908, 8300539 #### [facility] [address] [place] [address] Chloride [Moles/Vol] 107 mmol/L Normal 101-111 [facility] Comment on above: Performed By: #### 2 510744, 1566583, 2256208, 61292616, 0796459, 3755399 #### [facility] [address] [place] [address] CO2 [Moles/Vol] 23 mmol/L Normal 21-31 [facility] Comment on above: Performed By: #### 2 700779, 2402809, 1512814, 44730592, 5301359, 3026112 #### [facility] [address] [place] [address] Potassium [Moles/Vol] 4.9 mmol/L Normal 3.5-5.3 [facility] Comment on above: Performed By: #### 2 443973, 9567315, 5487339, 61809688, 8172326, 4875781 #### [facility] [address] [place] [address] Sodium [Moles/Vol] 139 mmol/L Normal 135-145 [facility] Comment on above: Performed By: #### 2 885379, 7404744, 5026651, 03221883, 3273191, 6734523 #### [facility] [address] [place] [address] Main OR Intraoperative Recor don 01-24-2019 Main OR Intraoperative Record IntraOp Document Type FT Summary Primary Physician: Thuan Travis DPM Finalized Date/Time: 01/24/19 11:33:24 Pt. Name: GEETA SHELTON/Sex: 1970 Female Med Rec #: [id number] Physician: Thuan Travis DPM Financial #: [id number] Pt. Type: A Room/Bed: Admit/Disch: 01/24/19 07:58:48 [...] Cheryl Role Performed Anesthesiologist Surgeon - Primary BOTANY TECHNICIAN Mother Helper Time In 01/24/19 08:48:00 01/24/19 09:00:00 01/24/19 [...] Zuly Duarte CST, Prashant Panda Role Performed Radio Communications Mechanician - Primary Radio Communications Mechanician - Other Scrub - Primary Time In [...] RN, Kallie Ewing, Alpa RN, Gerald Veliz GRAIN WAFER MACHINE OPERATOR, Prashant M Time Out Complete 01/24/19 08:59:00 [...] to transfer/transport General Comments: REPORT GIVEN TO VESSEL MANAGERRN. Cy PRIDE RN Dressing/Packing FT Pre-Care Text: [...] safely administered during the perioperative period For [facility] please see scanned medication reconcilliation form for medications used at the field during the procedure. Temperature Control Entry 1 Temperature Control BLANKET MISTRAL AIR Quantity 1 Aid TORSO [[id number]][F] Fluid/Custer Unit Mistral warming system Setting HIGH/43 Body Site Upper anterior torso Last Modified By: Kallie Gunter RN 01/24/19 08:46:43 Case Comments Finalized By: Maye Silverio CST Document Signatures Signed By: Kallie Gunter RN 01/24/19 09:26 Maye Silverio CST 01/24/19 11:33 Normal [facility] Main OR PACU I Recordon Main OR PACU I Record PACU Phase I Docum ent Type FT Summary Primary Physician: Thuan Travis DPM Finalized Date/Time: 01/24/19 10:08:45 Pt. Name: GEETA SHELTON/Sex: 1970 Female Med Rec #: [id number] Physician: Thuan Travis DPM Financial #: [id number] Pt. Type: A Room/Bed: [facility] Admit/Disch: 01/24/19 07:58:48 - Institution: Case Times [...] By: Swathi Carr RN 01/24/19 10:08 Normal [facility] Main OR PACU II Recordon Main OR PACU II Record PACU Phase II Doc ument Type FT Summary Primary Physician: Thuan Travis DPM Finalized Date/Time: 01/24/19 13:09:21 Pt. Name: GEETA SHELTON/Sex: 1970 Female Med Rec #: [id number] Physician: Thuan Travis DPM Financial #: [id number] Pt. Type: A Room/Bed: Admit/Disch: 01/24/19 07:58:48 [...] By: Keeley Putnam LPN 01/24/19 13:09 Normal [facility] Main OR Preoperative Recordo n 01-24-2019 Main OR Preoperative Record PreOp Document Type FT Summary Primary Physician: Thuan Travis DPM Finalized Date/Time: 01/24/19 09:12:07 Pt. Name: GEETA SHELTON/Sex: 1970 Female Med Rec #: [id number] Physician: Thuan Travis DPM Financial #: [id number] Pt. Type: A Room/Bed: [facility] Admit/Disch: 01/24/19 07:58:48 - Institution: Case Times [...] Signed By: Kallie Gunter RN 01/24/19 09:12 [facility] Operative Reporton 9 Operative Report Date of [...] first postoperative visit. Sania Pantoja Dictated: 01/24/2019 #[id number] Typed: 01/24/2019 #[id number] cc: Thuan Travis D.P.M. [facility] Comment on above: Result Comment: Elec tronically Signed By: Thuan Travis DPM\.br\Date and Time Signed: 01/24/19 10:24 EDT Patient Education - Texton 1 Patient Education - Text (Inserted Image . Unable to display) [place], [place] Thuan Travis DPM, FACMARY ALICE POST [...] feel free to call the doctor at: [phone] or [phone] Travis paged. ___ Patient signature Date ___ Dr. Anand Sauer DPM, FACFAS Date Revised: 06-02 [facility] Progress Note-Physicianon Progress Note-Physician Patient: GEETA SHELTON [...] 1 ml. Complications: None. Anesthesia type: General. [facility] Comment on above: Result Comment: Elec tronically Signed By: Thuan Travis DPM\Date and Time Signed: 01/24/19 09:27 EDT Coding Summary.on 01-12-2019 Coding Summary. CODING DATE: 019 FINAL [facility] STATUS: Home (Routine DC) PAYOR: Medicare ADMIT [...] CphT Date Saved: 01/12/2019 11:10 am Normal [facility] BUNon 01-11-2019 Urea nitrogen [Mass/Vol] 29 mg/dL High 5-21 [facility] Comment on above: Performed By: #### 2 511952, 9673002, 8071654, 47824118, 7766450, 5518217 #### [facility] [address] [place] [address] CBC w/Indiceson 01-11-2019 Erythrocyte distribution width (RBC) [Ratio] 16.1 % High 10.9-14.2 [facility] Comment on above: Performed By: #### 1 9144923, 4289750, 1695772, 8069795, 7123329 #### [facility] [address] [place] [address] Hematocrit (Bld) [Volume fraction] 42.1 % Normal 34.0-46.0 [facility] Comment on above: Performed By: #### 1 9947498, 5222345, 7704601, 0369833, 6274756 #### [facility] [address] [place] [address] Hemoglobin (Bld) [Mass/Vol] 13.8 g/dL Normal 12.0-16.0 [facility] Comment on above: Performed By: #### 1 7220711, 4337171, 6048620, 0909171, 2233691 #### [facility] [address] [place] [address] MCH (RBC) [Entitic mass] 25.8 pg Low 27.0-34.0 [facility] Comment on above: Performed By: #### 1 2273815, 5966798, 6977616, 3698855, 2356520 #### [facility] [address] [place] [address] MCHC (RBC) [Mass/Vol] 32.8 g/dL Low 33.3-35.7 [facility] Comment on above: Performed By: #### 1 1879368, 5581124, 6954636, 2417660, 8896203 #### [facility] [address] [place] [address] MCV (RBC) [Entitic vol] 78.5 fL Low 80.0-100.0 F [facility] Comment on above: Performed By: #### 1 6371752, 4360485, 1575465, 8419816, 2762686 #### [facility] [address] [place] [address] Platelet mean volume (Bld) [Entitic vol] 9.9 fL Normal 6.4-10.8 [facility] Comment on above: Performed By: #### 1 3219033, 5781737, 6159238, 1847773, 8785213 #### [facility] [address] [place] [address] Platelets (Bld) [#/Vol] 283.0 E9/L Normal 150. 0-500. 0 [facility] Comment on above: Performed By: #### 1 5084951, 1614583, 1614228, 6188621, 8954742 #### [facility] [address] [place] [address] RBC (Bld) [#/Vol] 5.4 E12/L Normal 4.3-5.9 [facility] Comment on above: Performed By: #### 1 7111795, 7879948, 4985051, 4561506, 0172563 #### [facility] [address] [place] [address] WBC corrected for nucl RBC Auto (Bld) [#/Vol] 8.6 E9/L Normal 4.0-11.0 [facility] Comment on above: Performed By: #### 1 3623423, 8737843, 8375904, 4320456, 7252942 #### [facility] [address] [place] [address] Creatinineon 01-11-2019 Creatinine [Mass/Vol] 1.0 mg/dL Normal 0.5-1.3 [facility] Comment on above: Performed By: #### 2 562889, 1412879, 4166046, 20542456, 3501352, 6767505 #### [facility] [address] [place] [address] Glucoseon 01-11-2019 Glucose [Mass/Vol] 95 mg/dL Normal 55-199 [facility] Comment on above: Performed By: #### 1 6075520, 0914703, 3657367, 3276444, 6818266 #### [facility] [address] [place] [address] eGFRon 01-11-2019 GFR/1.73 sq M predicted among blacks MDRD (S/P/Bld) [Vol rate/Area] mL/min/{1.73_m2} Normal >=59 [facility] Comment on above: Order Comment: Order added by Discern Expert. Result Comment: eGFR is race adjusted. AA=. Performed By: #### 2 671533, 5252515, 7674032, 97945888, 1789527, 7592977 #### [facility] [address] [place] [address] GFR/1.73 sq M predicted among non-blacks MDRD (S/P/Bld) [Vol rate/Area] 59 mL/min/1.73 m2 Normal >=59 [facility] Comment on above: Order Comment: Order added by Discern Expert. Result Comment: [employer] Supervisor stefanie kidney disease could be indicated at eGFR's of less than 60 mL/min/1.73m2. Kidney failure is indicated at less than 15 mL/min/1.73m2. Performed By: #### 2 449074, 9967497, 6181326, 21532297, 0672855, 2584768 #### [facility] [address] [place] [address] Coding Summary.on 12-15-2018 Coding Summary. CODING DATE: 019 FINAL [facility] STATUS: Home (Routine DC) PAYOR: Medicare APC [...] CphT Date Saved: 12/15/2018 01:36 pm Normal [facility] BUNon 12-14-2018 Urea nitrogen [Mass/Vol] 19 mg/dL Normal 5-21 [facility] Comment on above: Performed By: #### 2 305650, 2223218, 8667251, 41462064, 9541379, 2611033 #### [facility] [address] [place] [address] CBC w/Indiceson 12-14-2018 Erythrocyte distribution width (RBC) [Ratio] 17.1 % High 10.9-14.2 [facility] Comment on above: Performed By: #### 2 238225, 7900133, 1929398, 69731732, 1133394, 8226023 #### [facility] [address] [place] [address] Hematocrit (Bld) [Volume fraction] 41.5 % Normal 34.0-46.0 [facility] Comment on above: Performed By: #### 2 321529, 9252428, 0832095, 15066428, 1136153, 9354666 #### [facility] [address] [place] [address] Hemoglobin (Bld) [Mass/Vol] 13.2 g/dL Normal 12.0-16.0 [facility] Comment on above: Performed By: #### 2 073048, 5548074, 5853898, 84340622, 7292252, 3479812 #### [facility] [address] [place] [address] MCH (RBC) [Entitic mass] 25.0 pg Low 27.0-34.0 [facility] Comment on above: Performed By: #### 2 330260, 7509388, 1774296, 16095789, 5263925, 1575208 #### [facility] [address] [place] [address] MCHC (RBC) [Mass/Vol] 31.7 g/dL Low 33.3-35.7 [facility] Comment on above: Performed By: #### 2 361456, 4580782, 8998455, 47265919, 4325328, 2255746 #### [facility] [address] [place] [address] MCV (RBC) [Entitic vol] 78.7 fL Low 80.0-100.0 [facility] Comment on above: Performed By: #### 2 027867, 3440363, 9710925, 80367714, 0321187, 4234167 #### [facility] [address] [place] [address] Platelet mean volume (Bld) [Entitic vol] 9.4 fL Normal 6.4-10.8 [facility] Comment on above: Performed By: #### 2 341867, 1539367, 8670565, 98476971, 8041449, 1040976 #### [facility] [address] [place] [address] Platelets (Bld) [#/Vol] 268.0 E9/L Normal 150. 0-500. 0 [facility] Comment on above: Performed By: #### 2 958218, 5814297, 2614676, 33631400, 2080271, 0851413 #### [facility] [address] [place] [address] RBC (Bld) [#/Vol] 5.3 E12/L Normal 4.3-5.9 [facility] Comment on above: Performed By: #### 2 881625, 0447286, 3271756, 13989359, 8420677, 5264224 #### [facility] [address] [place] [address] WBC corrected for nucl RBC Auto (Bld) [#/Vol] 10.6 E9/L Normal 4.0-11.0 [facility] Comment on above: Performed By: #### 2 340043, 3849163, 8841729, 10318488, 5314834, 9911969 #### [facility] [address] [place] [address] Creatinineon 12-14-2018 Creatinine [Mass/Vol] 0.7 mg/dL Normal 0.5-1.3 [facility] Comment on above: Performed By: #### 2 385374, 1122084, 2694319, 95935696, 2750569, 3844117 #### [facility] [address] [place] [address] Glucoseon 12-14-2018 Glucose [Mass/Vol] 138 mg/dL Normal 55-199 [facility] Comment on above: Performed By: #### 2 717651, 8619110, 5525450, 90733772, 8585514, 2497410 #### [facility] [address] [place] [address] Lyteson 12-14-2018 Anion gap [Moles/Vol] 17 mmol/L High 6-16 [facility] Comment on above: Performed By: #### 2 852913, 8485826, 5677176, 49438637, 6811225, 0999536 #### [facility] [address] [place] [address] Chloride [Moles/Vol] 95 mmol/L Low 101-111 [facility] Comment on above: Performed By: #### 2 125274, 7248382, 0869952, 48805917, 1826309, 3113213 #### [facility] [address] [place] [address] CO2 [Moles/Vol] 26 mmol/L Normal 21-31 [facility] Comment on above: Performed By: #### 2 101042, 2414866, 3115734, 40827937, 5431958, 8117470 #### [facility] [address] [place] [address] Potassium [Moles/Vol] 3.9 mmol/L Normal 3.5-5.3 [facility] Comment on above: Performed By: #### 2 418521, 6956640, 2880207, 50978710, 7954162, 9387146 #### [facility] [address] [place] [address] Sodium [Moles/Vol] 134 mmol/L Low 135-145 [facility] Comment on above: Performed By: #### 2 982146, 1478245, 1076836, 98373409, 6871658, 8736451 #### [facility] [address] [place] [address] XR Chest 2 Viewson 9 XR Chest [...] MD Transcribed by: MAGEN Technologist: KRISTYN Normal [facility] eGFRon 12-14-2018 GFR/1.73 sq M predicted among blacks MDRD (S/P/Bld) [Vol rate/Area] mL/min/{1.73_m2} Normal >=59 [facility] Comment on above: Order Comment: Order added by Discern Expert. Result Comment: eGFR is race adjusted. AA=. Performed By: #### 2 054275, 7593872, 5021077, 71508174, 6241062, 9493922 #### [facility] [address] [place] [address] GFR/1.73 sq M predicted among non-blacks MDRD (S/P/Bld) [Vol rate/Area] mL/min/{1.73_m2} Normal >=59 [facility] Comment on above: Order Comment: Order added by Discern Expert. Result Comment: [employer] Pl[employer] Supervisor stefanie kidney disease could be indicated at eGFR's of less than 60 mL/min/1.73m2. Kidney failure is indicated at less than 15 mL/min/1.73m2. Performed By: #### 2 935084, 6498700, 6602261, 17409384, 3198377, 9135467 #### [facility] [address] [place] [address] Vital Signs Date Time Vital Sign Value Performing Clinician Facility 09-30-2023 09:36-0400 Body height 165.1 cm PHYSICIAN NO [facility] 09-30-2023 09:36-0400 Body mass index (BMI) [Ratio] 46.2 kg/m2 PHYSICIAN NO [facility] 09-30-2023 09:36-0400 Body temperature 97.6 [degF] PHYSICIAN NO [facility] 09-30-2023 09:36-0400 Body weight 126.09 kg PHYSICIAN NO [facility] 09-30-2023 09:36-0400 Diastolic blood pressure 85 mm[Hg] PHYSICIAN NO [facility] 09-30-2023 09:36-0400 Heart rate 87 /min PHYSICIAN NO [facility] 09-30-2023 09:36-0400 Respiratory rate 20 /min PHYSICIAN NO [facility] 09-30-2023 09:36-0400 SaO2% (BldA) [Mass fraction] 98 % PHYSICIAN NO [facility] 09-30-2023 09:36-0400 Systolic blood pressure 139 mm[Hg] PHYSICIAN NO [facility] 03-02-2023 10:45-0500 Body height 165.1 cm Tyler Jean Other [employer] Other 03-02-2023 10:45-0500 Body mass index (BMI) [Ratio] 44.76 kg/m2 Tyler Jean Other [employer] Other 03-02-2023 10:45-0500 Body temperature 96.7 [degF] Tyler Jean Other [employer] Other 03-02-2023 10:45-0500 Body weight 122.02 kg Tyler Jean Other [employer] Other 03-02-2023 10:45-0500 Diastolic blood pressure 82 mm[Hg] Tyler Jean Other [employer] Other 03-02-2023 10:45-0500 Respiratory rate 18 /min Tyler Jean Other [employer] Other 03-02-2023 10:45-0500 SaO2% (BldA) [Mass fraction] 96 % Tyler Jean Other [employer] Other 03-02-2023 10:45-0500 Systolic blood pressure 136 mm[Hg] Tyler Jean Other [employer] Other 09-21-2022 09:11-0400 Body weight 128.72 kg RHEA Alvarado Work Phone: [facility] 09-21-2022 09:11-0400 Diastolic blood pressure 91 mm[Hg] RHEA Hornerholtz Work Phone: [facility] 09-21-2022 09:11-0400 Heart rate 88 /min HEEL NAIL RASPERNohelia Morinholpaula Work Phone: [facility] 09-21-2022 09:11-0400 Respiratory rate 20 /min HEEL NAIL RASPERNohelia Johnson Mymicheleholpaula Work Phone: [facility] 09-21-2022 09:11-0400 SaO2% (BldA) [Mass fraction] 96 % HEEL NAIL RASPERNohelia Morinholpaula Work Phone: [facility] 09-21-2022 09:11-0400 Systolic blood pressure 145 mm[Hg] RHEA Morinholpaula Work Phone: [facility] 08-16-2022 13:57-0400 Body temperature 98 [degF] RHEA Alvarado Work Phone: [facility] 08-16-2022 13:42-0400 Body height 165.1 cm RHEA Alvarado Work Phone: [facility] 07-03-2022 08:14-0500 Body temperature 97.9 [degF] Acosta Schafer MD Work Phone: [employer] 07-03-2022 08:14-0500 Diastolic blood pressure 70 mm[Hg] Acosta Schafer MD Work Phone: [employer] 07-03-2022 08:14-0500 Heart rate 83 /min Acosta Schafer MD Work Phone: [employer] 07-03-2022 08:14-0500 Respiratory rate 18 /min Acosta Schafer MD Work Phone: [employer] 07-03-2022 08:14-0500 SaO2% (BldA) [Mass fraction] 98 % Acosta Schafer MD Work Phone: [employer] 07-03-2022 08:14-0500 Systolic blood pressure 129 mm[Hg] Acosta Schafer MD Work Phone: [facility] [employer] 07-02-2022 09:45-0500 Body mass index (BMI) [Ratio] 50.66 kg/m2 Acosta Schafer MD Work Phone: [facility] [employer] 07-02-2022 09:45-0500 Body weight 129.73 kg Acosta Schafer MD Work Phone: [facility] [employer] 06-24-2022 11:20-0500 Body height 160 cm Mloz Rn [facility] [employer] 06-24-2022 11:20-0500 Body mass index (BMI) [Ratio] 50.79 kg/m2 Mloz Rn [facility] [employer] 06-24-2022 11:20-0500 Body temperature 97.9 [degF] Mloz Rn [facility] [employer] 06-24-2022 11:20-0500 Body weight 130.05 kg Mloz Rn [facility] [employer] 06-24-2022 11:20-0500 Diastolic blood pressure 87 mm[Hg] Mloz Rn [facility] [employer] 06-24-2022 11:20-0500 Heart rate 73 /min Mloz Rn [facility] [employer] 06-24-2022 11:20-0500 Respiratory rate 16 /min Mloz Rn [facility] [employer] 06-24-2022 11:20-0500 SaO2% (BldA) [Mass fraction] 98 % Mloz Rn [facility] [employer] 06-24-2022 11:20-0500 Systolic blood pressure 142 mm[Hg] Mloz Rn [facility] [employer] 05-18-2022 08:46-0500 Body height 165.1 cm Acosta Schafer MD Work Phone: [facility] Work Phone: 05-18-2022 08:46-0500 Body mass index (BMI) [Ratio] 45.93 kg/m2 Acosta Schafer MD Work Phone: [facility] [facility] Work Phone: 05-18-2022 08:46-0500 Body surface area Derived from formula 2.27 m2 Acosta Schafer MD Work Phone: [facility] Work Phone: 05-18-2022 08:46-0500 Body weight 125.19 kg Acosta Schafer MD Work Phone: [facility] Work Phone: Encounters Encounter Date Encounter Type Care Provider Facility Start: 09-30-2023 End: 09-30-2023 ambulatory PHYSICIAN NO [facility] Work Phone: Start: 09-30-2023 End: 09-30-2023 Patient encounter procedure PHYSICIAN NO [facility] Ambulatory Work Phone: Start: 09-30-2023 Registered Recurring PHYSICIAN AKASH [facility] Acute Work Phone: Start: 09-30-2023 ambulatory Krzysztof mitchell II Facility:[facility] Start: 09-07-2023 End: 09-07-2023 Patient encounter procedure PHYSICIAN NO [facility] [place] Work Phone: Start: 09-07-2023 End: 09-07-2023 ambulatory PHYSICIAN NO [facility] Facility:[facility] Start: 08-24-2023 End: 08-24-2023 Patient encounter procedure RHEA Alvarado Work Phone: [facility] Start: 08-24-2023 End: 08-24-2023 ambulatory Elizabeth Alvarado [facility] Work Phone: Start: 08-24-2023 End: 08-24-2023 Departed Referred RHEA Alvarado Work Phone: [facility] Start: 05-10-2023 End: 05-10-2023 Patient encounter procedure RHEA Alvarado Work Phone: [facility] Work Phone: Start: 05-10-2023 End: 05-10-2023 ambulatory RHEA Alvarado Work Phone: [facility] Work Phone: Start: 03-02-2023 End: 03-02-2023 ambulatory Tyler Jean Other [employer] Other Start: 03-02-2023 Office outpatient vi sit 25 minutes Tyler Jean [facility] Vascular Surgery Start: 02-14-2023 End: 02-14-2023 Patient encounter procedure RHEA Alvarado Work Phone: [facility]-Ultrasound [facility] [place] Work Phone: Start: 02-14-2023 End: 02-14-2023 ambulatory HEEL NAIL RASPERNohelia Alvarado Work Phone: [facility] Work Phone: Start: 01-26-2023 FQ visit new patient Sindy Estes joanne [facility] Vascular Surgery Start: 01-26-2023 End: 01-26-2023 Patient encounter procedure RHEA Alvarado Work Phone: [facility]XRay [facility] [place] Work Phone: Start: 01-26-2023 End: 01-26-2023 ambulatory RHEA Alvarado Work Phone: [place] [employer] Other Start: 12-29-2022 Patient encounter procedure Acosta Schafer MD Work Phone: [facility] [facility] Work Phone: Start: 12-29-2022 ambulatory Provider Pending Facili ty:[id number] Start: 11-25-2022 End: 11-25-2022 Patient encounter procedure RHEA Alvarado Work Phone: [facility]-Respiratory Therapy Work Phone: Start: 11-25-2022 End: 11-25-2022 ambulatory Elizabeth Alvarado Facility:[facility] Start: 09-22-2022 Patient encounter procedure Acosta Schafer MD Work Phone: [facility] Work Phone: Start: 09-22-2022 ambulatory Provider Pending Facili ty:[id number] Start: 09-21-2022 End: 09-21-2022 ambulatory HEEL NAIL RASPER Elizabeth Alvarado Work Phone: [facility] Work Phone: Start: 09-21-2022 End: 09-21-2022 Registered Recurring RHEA Alvarado Work Phone: [facility] Work Phone: Start: 08-11-[address] Acosta Subramanianfield Facility:[id number] Start: 08-04-2022 End: 08-04-2022 Discharged Recurring RHEA Alvarado Work Phone: [facility]-Physical Therapy [address] Start: 07-23-2022 End: 07-23-2022 ambulatory RHEA Alvarado Work Phone: [facility] Work Phone: Start: 07-23-2022 End: 07-23-2022 Patient encounter procedure HEEL NAIL RASPER Elizabeth Alvarado Work Phone: [facility] [place] Work Phone: Start: 07-16-2022 Telephone encounter Acosta Crews MD Work Phone: [facility] Work Phone: Start: 07-14-2022 Patient encounter procedure Acosta Schafer MD Work Phone: [facility] Work Phone: Start: 07-14-[address] Acosta Alva yaneli Subram[place] Facility:[id number] Start: 07-07-2022 AUDIT Acosta sow MD Work Phone: [facility] Work Phone: Start: 07-01-2022 ambulatory Provider Pending Facili ty:[id number] Start: 07-01-2022 End: 07-03-2022 Evaluation and management of inpatient ACOSTA Delaney [facility] Start: 07-01-2022 [facility], Provider: Acosta Schafer, Status: Pen, Time: 7:00 AM Natali Tyson PT, DPT Work Phone: [facility] Work Phone: Start: 07-01-2022 End: 07-03-2022 Evaluation and management of inpatient Acosta Schafer MD Work Phone: [facility] Comment on above: 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 Merrill Rawls as [facility] Facility:[id number] Start: 06-25-2022 Encounter for other preprocedural examination Mr. Merrill Hernandez Alejandro II [facility] Start: 06-24-2022 End: 06-29-2022 ambulatory ACOSTA SCHAFER [facility] Start: 06-24-2022 End: 06-28-2022 Subsequent hospital visit by physician Juan Mott 2 Kip Burleson Pre-Admission Testing Start: 05-18-2022 Patient encounter procedure Acosta Schafer MD Work Phone: [facility] Work Phone: Start: 05-18-[address] Acosta Subram[place]field Facility:[id number] Start: 05-07-2022 End: 05-07-2022 Patient encounter procedure RHEA Alvarado Work Phone: [facility] Work Phone: Start: 04-13-2022 End: 04-13-2022 ambulatory RHEA Alvarado Work Phone: [facility] Work Phone: Start: 04-13-2022 End: 04-13-2022 Patient encounter procedure RHEA Alvarado Work Phone: [facility] [place] Start: 12-17-2021 End: 12-17-2021 Patient encounter procedure RHEA Alvarado Work Phone: [facility]-Nuc Med [facility] [place] Start: 12-07-2021 End: 12-07-2021 Patient encounter procedure RHEA Alvarado Work Phone: [facility]Ultrasound [facility] [place] Start: 12-03-2021 End: 12-03-2021 Departed Referred RHEA Alvarado Work Phone: [facility] Procedures Date Procedure Procedure Detail Performing Clinician Start: 09-07-2023 Pelvic echography PHYSI CHIQUI NO FAMILY Start: 09-07-2023 Transvaginal echography PHYSICIAN NO FAMILY Start: 05-10-2023 Screening mammograph y of bilateral breasts RHEA Alvarado Work Phone: Start: 02-14-2023 Duplex scan of lower limb veins HEEL NAIL RASPERNohelia Alvarado Work Phone: Start: 01-26-2023 Plain chest X-ray RHEA Alvarado Work Phone: Start: 07-03-2022 BASIC METABOLIC PANE L W/ REFLEX TO MG FOR LOW K Adjondi Kamryn Born HEEL NAIL RASPER - DECORATOR HAND Work Phone: Start: 07-03-2022 Blood count complete automated Adjyoan Coronado HEEL NAIL RASPER - DECORATOR HAND Work Phone: Start: 07-02-2022 Dup-scan xtr veins unilateral/limited study Carlos A Villela Dilipjuancho TOMAS Work Phone: Start: 07-02-2022 BASIC METABOLIC PANE L W/ REFLEX TO MG FOR LOW K Arya Coronado HEEL NAIL RASPER [facility] Work Phone: Start: 07-02-2022 Blood count complete automated Adjyoan Coronado APRN - DECORATOR HAND Work Phone: Start: 07-01-2022 Radiologic examinati on knee 1/2 views Arya Coronado APRN [facility] Work Phone: Start: 07-01-2022 End: 07-01-2022 [...] Phone: Start: 12-07-2021 US scan of thyroid HEEL NAIL RASPERNohelia Alvarado Work Phone: Start: 02-01-2019 Anesthesia consultation Start: 01-24-2019 Anesthesia consultation Plan of Treatment Date Care Activity Detail Author Start: 06-29-2023 FUV, Provider: Acosta Schafer, Status: Pen, Time: 2:15 PM FUV, Provider: Acosta Schafer, Status: Pen, Time: 2:15 PM [facility] [facility] [place] Work Phone: Start: 02-17-2023 Screening for malign ant neoplasm of colon [facility] Start: 12-29-2022 FUV, Provider: Acosta Schafer, Status: Pen, Time: 1:45 PM FUV, Provider: Acosta Schafer, Status: Pen, Time: 1:45 PM -[place] [facility] Work Phone: Start: 08-11-2022 FUV, Provider: Acosta Schafer, Status: Pen, Time: 9:45 AM FUV, Provider: Acosta Schafer, Status: Pen, Time: 9:45 AM [facility] [place] Work Phone: Start: 07-23-2022 [facility] Start: 07-14-2022 POV, Provider: Acosta Schafer, Status: Pen, Time: 9:00 AM POV, Provider: Acosta Schafer, Status: Pen, Time: 9:00 AM [facility] [place] Work Phone: Start: 07-01-2022 End: 07-01-2022 Admission to same day surgery center 07/01/2022 Surgery IP Unit Acosta Schafer MD [address] [place] [address] RIGHT KNEE RIGHT TOTAL KNEE REVISION INSTRUMENTATION ANTONELLA FEMORAL & SCIATIC BLOCK [facility] [place] Comment on above: RIGHT KNEE RIGHT TOT AL KNEE REVISION INSTRUMENTATION ANTONELLA FEMORAL & SCIATIC BLOCK Start: 07-01-2022 End: 07-01-2022 Revj total knee arthrp w/wo algrft 1 component KNEE TOTAL ARTHROPLASTY REVISION Loosening of unicondylar knee replacement (HCC) 07/01/2022 10:50 AM [facility] Start: 07-01-2022 Subsequent hospital visit by physician 07/01/2022 Hospital Encounter IP Unit Acosta Schafer MD [address] [place] [id number] [place] Start: 07-01-2022 [facility], Provider: Acosta Schafer, Status: Pen, Time: 7:00 AM [facility], Provider: Acosta Schafer, Status: Pen, Time: 7:00 AM [facility] [place] Work Phone: Start: 06-25-2022 PREADMIT, Provider: Merrill Alejandro, Status: Pen, Time: 1:45 PM [facility], Provider: Merrill Alejandro, Status: Pen, Time: 1:45 PM [facility] [place] Work Phone: Start: 06-25-2022 [id number], Provider : Natali Tyson, Status: Pen, Time: 1:00 PM [id number], Provider: Natali Tyson, Status: Pen, Time: 1:00 PM [facility] [place] Work Phone: Start: 06-24-2022 Annual Wellness Visi t (AWV) Annual Wellness Visit (AWV) [facility] Start: 12-17-2021 Radionuclide three-p hase bone study NM bone 3 phase [facility] Start: 12-17-2021 End: 12-17-2021 Patient encounter procedure Departed [facility] [place] Start: 12-07-2021 US scan of thyroid US thyroid [facility] Start: 12-07-2021 End: 12-07-2021 [facility] [place] Start: 11-23-2021 Influenza vaccination Flu vaccine (# 1) [facility] Start: 05-18-2021 COVID-19 Vaccine (4 - Booster for Moderna series) COVID-19 Vaccine (4 - Booster for Moderna series) [facility] Start: 02-23-2018 Screening for malign ant neoplasm of breast Breast cancer screen [facility] Start: 02-23-2018 Shingles vaccine (1 of 2) Shingles v accine (1 of 2) [facility] Start: 02-23-2013 Screening for malign ant neoplasm of colon [facility] Start: 2008 Lipid panel Lipids [facility] Start: 02-23-2003 Diabetes screen Diabetes screen [facility] Start: 02-23-1998 Screening for malign ant neoplasm of cervix [facility] Start: 02-23-1989 Screening for malign ant neoplasm of cervix Pap smear [facility] Start: 02-23-1987 DTaP/Tdap/Td vaccine (1 - Tdap) DTaP/Tdap/Td vaccine (1 - Tdap) [facility] Start: 02-23-1986 Hepatitis C screening Hepatitis C sc reen [facility] Start: 02-23-1983 HIV screening HIV screen [facility] Start: 1980 Depression Screen Depression Screen [facility] Start: 1970 COVID-19 Vaccine (#1) COVID-19 Vacci ne (#1) [facility] End: 07-04-2022 Basic Metabolic Panel w/ Reflex to MG Basic Metabolic Panel w/ Reflex to MG Lab Routine Daily for 3 Days starting 07/02/2022 until 07/04/2022, 2 completed [facility] Work Phone: Comment on above: Daily for 3 Days sta rting 07/02/2022 until 07/04/2022, 2 completed End: 07-04-2022 CBC panel - Blood by Automated count CBC Lab Routine Daily for 3 Days starting 07/02/2022 until 07/04/2022, 2 completed [facility] Work Phone: Comment on above: Daily for [...] [facility] Oxygen therapy [[facility] Data Set] Initiate Oxygen Therapy Protocol Respiratory Care Routine Daily until discontinued starting 07/01/2022 [employer] Phone: Comment on above: Daily until disconti nued starting 07/01/2022 Spirometry panel Incentive tonja metry Respiratory Care Routine Every 2hr while awake until discontinued starting 07/01/2022 [employer] Phone: Comment on above: Every 2hr while awak e until discontinued starting 07/01/2022 [facility] Immunizations Immunization Date Immunization Notes Care Provider [facility] 03-16-2016 influenza virus vaccine, unspecified formulation HEEL NAIL RASPERNohelia Alvarado Work Phone: [facility] 03-16-2016 influenza, injectabl e, quadrivalent, preservative free Sindy Giovanni Other [employer] Other Payers Date Payer Category Payer Private Health Insurance [id number] 2022 Medicaid [id number] 2022 Private Health Insurance [id number] 2022 Self-pay [id number] 2014 Private Health Insurance [id number] 1970 Unknown [id number] [id number]. 182 1968 Unknown [id number] 2..840.1.625450.3.579.2. 182 1968 Unknown [id number] 2.16.840.1.018709.3.579.2. 356 1968 Unknown [id number] 2.16.840.1.258380.3.579.2. 8 1968 Unknown [id number] 2.16.840.1.454141.3.579.2. 1067 1968 Unknown [id number] 2.16.840.1.824163.3.579.2. 1067 1968 Unknown [id number] 2.16.840.1.402991.3.579.2. 1067 1968 Unknown [id number] 2..840.1.046734.3.579.2. 1067 1968 Unknown [id number] 2.840.1.425918.3.579.2. 1067 1968 Unknown [id number] 2..840.1.163588.3.579.2. 1067 Medicare Medicare [id number] Medicare [id number] Medicare [place] [employer] Dual Adv JRG [id number] Unknown [facility] DUAL COMPLETE Unknown [id number] 2.840.1.075102.3.579.2. 531 Unknown [id number] 2.840.1.049785.3.579.2. 531 Unknown [id number] 2.840.1.269686.3.579.2. 531 Unknown [id number] 2.840.1.000638.3.579.2. 531 Unknown [id number] 2.840.1.752824.3.579.2. 531 Unknown [id number] 2.16840.1.640649.3.579.2. 531 Unknown [id number] 2.16.840.1.161473.3.579.2. 531 Unknown [id number] 2.16.840.1.500506.3.579.2. 531 Social History Date Type Detail Facility Start: 06-03-2017 End: 09-21-2022 Tobacco smoking status NHIS Never smoked tobacco (finding) [facility] Start: 1970 Sex Assigned At Female F [facility] Start: 06-24-2022 Tobacco use and exposure Smokeless tobacco non-user [employer] Phone: Start: 06-24-2022 End: 07-02-2022 Alcohol intake Current drinker of alcohol (finding) [employer] Phone: Start: 06-24-2022 Alcohol Comment occasional [employer] Phone: Start: 1970 Sex Assigned At Not on file [employer] Phone: Start: 06-14-2022 End: 06-24-2022 Exposure to SARS-CoV-2 (event) Not sure [employer] Phone: Sex Assigned At Sex Assigned At Bir th [employer] Other Medical Equipment Procedure Code Equipment Code Equipment Origin al Text Equipment Identifier Dates Cement Bioprep S t - [id number] Start: 07-01-2022 Stem Tib [id number] [id number] Knee Tot Stbl Joey Roberta Triathlon - [id number] , [id number] FDA Start: 07-01-2022 Clinical Notes [...] of both lower extremities (ICD-10 - I87.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) [employer] Other 10-04-2023 Evaluation note* Encounter Date Diagnosis [...] Bilateral lower extremity edema (ICD-10 - R60.0) [employer] Other 04-24-2023 Consult note Author Zoey Ramirez [facility] August 16, 2022 3:19pm Note Date/Time August 16, 2022 2:2 0pm [facility] [place] [address] Hem/Onc Consult Note - OP Signed Patient: Geeta Shelton MR#: [id number] : 1970 Acct:[id number] Age/Sex: 52 / F Type: REG RCR Copies to: Elizabeth Alvarado APRN,DECORATOR HAND Lorrie Baig DO~ HPI Date/Time of Service: Date of Service: 08/16/2022 Time of Service: 14:19 Referring Provider/PCP: Referring Provider: Lorrie Baig DO PCP: Elizabeth Alvarado APRN, NETWORK STRATEGIST-C - History of Present Illness Reason for [...] disorder. No history of thrombosis. [facility] - Medical History Medical History: Medical History [...] Additional comments: Patient: Geeta Shelton MR#: [id number] : 1970 Acct:[id number] Age/Sex: 51 / F ADM Date: 2 Loc: IN Room: Type: [facility] Attending Dr: Tyler Villeda PA-C Copies to: [...] for coordination of care (as documented) and [id number] counseling of patient and/or family. Dictated By: Zoey Ramirez APRN DD/ [id number] Signed By: <Electronically signed by RHEA Ramirez> 08/16/22 [facility] Work Phone: 1(859) 544-260903-11-2023 History of Present illness Narrative* Sosa Poon [...] tape after removal as ordered. Patient has [facility] set up. Knee immobilizer sent with pt, [...] Therapy Med Surg Daily Treatment Note Facility/Department: [address] Room: [place] [address] NAME: Geeta Suresh Shelton : 1970 (52 [...] BLOCK-DEMETRIA performed by Acosta Schafer MD at [facility] [place] Chart Reviewed: Yes Restrictions: Restrictions/Precautions: Fall [...] Recommendations: Continue to assess pending progress Goals Desk [employer] Publ[employer] Goals Shelter Goal 1: Bed mobility with indep Desk Top Publisher Goal 2: Functional transfes with indep Shelter Goal 3: Amb 50ft with 2ww and indep Desk [employer] Publisher Goal 4: 4 steps with handrail and SBA Shelter Goal 5: indep with HEP to improve [...] Therapy Med Surg Daily Treatment Note Facility/Department: [address] [id number]: Geeta Shelton : 1970 (52 [...] Recommendations: Continue to assess pending progress Goals Shelter Goals Desk Top Publisher Goal 1: Bed mobility with indep Desk Top Publisher Goal 2: Functional transfes with indep Desk Top Publisher Goal 3: Amb 50ft with 2ww and indep Desk Top Publisher Goal 4: 4 steps with handrail and SBA Shelter Goal 5: indep with HEP to improve LE strength and ROM Patient Goals Patient Goals : to go home PLAN General Plan: 2 times a day 7 days a week Safety Devices Type of Devices: All fall risk precautions in place, Call light within reach, Left in bed, Bed alarm in place, Nurse notified [facility] (6 CLICK) BASIC MOBILITY AM-PAC Inpatient Mobility [...] to accomplish the task * Arya Coronado, HEEL NAIL RASPER - DECORATOR HAND - 07/02/2022 9:49 AM EST Progress Note [...] puffs by inhalation with spacer [] Ipratropium [place] 0.02% unit dose by aerosol Ipratropium [place] MDI 2 puffs by inhalation with spacer [] Duoneb (Ipratropium + Albuterol) unit dose by aerosol Ipratropium MDI + Albuterol MDI 2 puffs byinhalation w/spacer MDI to Aerosol [] Albuterol Sulfate MDI Albuterol Sulfate 0.083% unit dose by aerosol [] Levalbuterol MDI 2 puffs by inhalation Levalbuterol 1.25 mg unit dose by aerosol [] Ipratropium [place] MDI by inhalation Ipratropium [place] 0.02% unit dose by aerosol [] Combivent [...] PRN 5. (0-5) Freq Q4prn * Kyrie Sanhi OTR/Orin - 07/01/2022 4:05 PM EST NAM WONG OCCUPATIONAL THERAPY EVALUATION - ACUTE NAME: Geeta Shelton : 1970 (52 y.o.) CODE STATUS: Full Code Room: [place] [address] Date of Service: 07/01/2022 Patient Diagnosis(es): Loosening [...] Ambulation Assistance: Independent Transfer Assistance: Independent Active School Lunch Manager: Yes Mode of Transportation: Car OBJECTIVE: Orientation [...] How much help for eating meals?: None AM-[facility] Inpatient Daily Activity Raw Score: 19 AM-[facility] Inpatient ADL T-Scale Score : 40.22 ADL [...] Physical Therapy Med Surg Initial Assessment Facility/Department: [address] Room: [facility]/W268-01 NAME: Geeta Prince Shelton : 1970 (52 [...] Ambulation Assistance: Independent Transfer Assistance: Independent Active School Lunch Manager: Yes Mode of Transportation: Car OBJECTIVE: Vision [...] Goals: Patient Goals : to go home Shelter Goals Shelter Goal 1: Bed mobility with indep Desk Top Publisher Goal 2: Functional transfes with indep Desk Top Publisher Goal 3: Amb 50ft with 2ww and indep Shelter Goal 4: 4 steps with handrail and SBA Shelter Goal 5: indep with HEP to improve LE strength and ROM [facility] (6 CLICK) BASIC MOBILITY AM-PAC Inpatient Mobility [...] accomplish the task documented [facility] [employer] Work Phone: 1(305) 641-976503-09-2023 History of Present illness Narrative* History of [...] she will most likely do this at [facility] in [place]. * Physical exam * General: No acute [...] see dictated x-ray report * Procedure * [place] removed Steri-Strips placed without complication * Assessment [...] grammatical areas may persist related to the [employer] software * Merrill Alejandro PA-C * . [facility] Work Phone: 1(567) 245-911403-07-2023 Hospital Discharge instructions* Discharge Instructions* Arya Coronado APRN - DECORATOR HAND - 06/29/2022 11:33 AM EST Total Knee [...] Hospital Unit/Room#: W268/W268-01 Discharging Unit Phone Number: [phone] Emergency Contact: Extended Emergency Contact Information Primary Emergency Contact: kena travis Relation: Other Past Surgical History: Past Surgical History: Procedure Laterality Date JOINT REPLACEMENT Left knee PARTIAL KNEE ARTHROPLASTY Right REVISION TOTAL KNEE ARTHROPLASTY Right 07/01/2022 RIGHT KNEE RIGHT TOTAL KNEE REVISION INSTRUMENTATION ANTONELLA FEMORAL & SCIATIC BLOCK-DEMETRIA performed by Acosta Schafer MD at [facility] [place] Immunization History: There is no immunization [...] Assisted Dressing Assisted Toileting Independent Feeding 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 Independent Med Delivery whole Wound Care Documentation [...] applicable) Name: Address: Dialysis Schedule: Phone: Fax: Adventure Guide/Hides Soaker signature: {Esignature:[id number]} PHYSICIAN SECTION Prognosis: {Prognosis:7508756924} Condition at Discharge: { Patient Condition:434950248} Rehab Potential (if transferring to Rehab): {Prognosis:8478923361} Recommended Labs or Other Treatments After Discharge: Physician Certification: I certify the above information and transfer of Geeta Shelton is necessary for the continuing treatment of the diagnosis listed and that she requires {Admit to AppropriateLevel of Care:65814} for {GREATER/LESS:950189038} 30 days. Update Admission H&P: {CHP DME Changes in HandP:374752380} PHYSICIAN SIGNATURE: {Esignature:255669886} * Attachments The following attachments cannot be sent through Care Everywhere. * Total Knee Replacement Surgery: General Info (Persian) * Wound: VAC (Vacuum-Assisted Closure) (Persian) documented [facility] pushd Phone: [phone]) 791-559603-02-2023 History of Present illness Narrative* Sindy Pelaez RN - 06/24/2022 11:10 AM EST Yellow PAT and Dynahex instruction sheet reviewed with patient, who verbalized understanding. documented in this encounterBON pushd Phone: evaluation noteNo assessment information available [facility] Work Phone: Evaluation note* Diagnosis Status post revision of total knee replacement, right- Primary Status post revision of total replacement of right knee Acute postoperative pain Other acute postoperative pain documented in this encounter [facility] pushd Phone: evaluation note* Diagnosis Onset Date Resolution Status MGUS (monoclonal gammopathy of unknown significance) acute Microcytosis acute Peripheral neuropathy acute [facility] Work Phone: Evaluation note* Diagnosis Onset Date Resolution Status MGUS (monoclonal gammopathy of unknown significance) acute Microcytosis acute Peripheral neuropathy acute MGUS (monoclonal gammopathy of unknown significance) acute [facility] Work Phone: History general Narrative - Reported* Type Description Date Medical History asthma Medical History snoring Medical History Allergic Rhinitis Medical History Essential Hypertension Surgical History Revise/Replace left knee joint Surgical History Varicose Veins 2010 Surgical History Right ankle surgery Hospitalization History See above [employer] Other History of Present illness Narrative* New [...] grammatical areas may persist related to the [employer] software * Acosta Schafer MD * Senior Attending Physician * [facility] * . -[facility] [facility] Work Phone: History of Present illness Narrative* [...] grammatical areas may persist related to the [employer] software * Acosta Schafer MD * Senior Attending Physician * [facility] * . [facility] [facility] Work Phone: History of Present illness Narrative* [...] will be re-assessed and goals updated. [facility] Work Phone: History of Present illness Narrative* [...] will be re-assessed and goals updated. [facility] Work Phone: History of Present illness Narrative* [...] grammatical areas may persist related to the [employer] software * Acosta Schafer MD * Senior Attending Physician * [facility] * . [facility] Work Phone: History of Present illness Narrative* [...] grammatical areas may persist related to the [employer] software * Merrill Alejandro PA-C * . [facility] Work Phone: Progress note Author Krzysztof Salazar [facility] September 21, 2022 9:52am Note Date/Time September 21, 2022 9:49a m [facility] at [address] [address] Hem/Onc Follow Up Note - OP Signed Patient: Geeta Shelton MR#: [id number] : 1970 Acct:[id number] Age/Sex: 52 / F Type: REG RCR Copies to: Elizabeth Alvarado,HEEL NAIL RASPER,DECORATOR HAND Lorrie Baig,DO~ Date of Service: 09/21/2022 Time [...] for coordination of care (as documented) and [id number] counseling of patient and/or family. [facility] - Medical History Medical History: Medical History [...] by Krzysztof Salazar II, DO> 09/21/22 0952 [facility] Work Phone: Reason for visit Narrative* Initial Evaluation, Pre-Op . * [facility] Work Phone: Reason for visit Narrative* Initial Evaluation, Pre-Op . * Referred by: Dr. Acosta Schafer [facility] Work Phone: Summary Purpose Family History No [...] replacement of right knee Born, Arya Harry, HEEL NAIL RASPER - [facility] [address] [place] [address] Referral ID Status Reason Start Date Expiration Date V isits Requested Visits Authorized [id number] Open Specialty Services Required 07/01/2022 07/01/2023 1 1 Question Answer I certify that I, or a nurse practitioner or physician gift shop assistant working with me, had an in-person encounter with the patient and the reason for the home care services is documented in the clinical note on: 07/01/2022 Will the referring provider be the attending provider for home health? [place] of attending provider for home health Dr. Schafer The patient is confined to home: Due [...] content) DATE CREATED AUTHOR 02/01/2019 Rober Baumann [facility] ical Center DATE CREATED AUTHOR AUTHOR'S ORGANIZ ATION 07/04/2022 [facility] DATE CREATED AUTHOR AUTHOR'S ORGANIZ ATION 07/08/2022 [facility] ical Center DATE CREATED AUTHOR AUTHOR'S ORGANIZ ATION 12/30/2022 [facility] DATE CREATED AUTHOR AUTHOR'S ORGANIZ ATION 01/09/2023 [facility] DATE CREATED AUTHOR AUTHOR'S ORGANIZ ATION 10/19/2023 [facility] Care Teams (unrecognized sec tion and content) Team Status: Active Member Role Status Dates Elizabeth Alvaraod APRN NETWORK STRATEGIST-C Primary Care Provide r Active Team Status: Inactive Member Role Status Dates Elizabeth Alvarado APRN NETWORK STRATEGIST-C Primar y Care Provider, Attending Provider Active Team Status: Inactive Member Role Status Dates Elizabeth Alvarado APRN NETWORK STRATEGIST-C Primary Care Provide r Active Lorrie Baig DO Attending Provider Active Team Status: Inactive Member Role Status Dates Elizabeth Alvarado APRN NETWORK STRATEGIST-C Primary Care Provide r Active JEREMIAS Cavazos-C Attending Provider Active Team Status: Inactive Member Role Status Dates Elizabeth Alvarado APRN NETWORK STRATEGIST-C Attending Provider A ctive Services [facility] Primary Care Provider Active Parts Back Counter Man Relationship Specialty Start Date End Date Elizabeth Alvarado PCP - General 07/01/22 Team Status: Active Member Role Status Dates Elizabeth Alvarado APRN NETWORK STRATEGIST-C Primary Care Provide r Active Zoey Ramirez APRN Attending Provider Active Lorrie Baig DO Referring Provider Active Team Status: Inactive Member Role Status Dates Elizabeth Alvarado APRN NETWORK STRATEGIST-C Primary Care Provide r Active Acosta Schafer Attending Provider Active Team Status: Inactive Member Role Status Dates Elizabeth Alvarado APRN NETWORK STRATEGIST-C Primary Care Provide r Active Sindy Davila NP-C Attending Provider Active Team Status: Inactive Member Role Status Dates Elizabeth Alvarado APRN NETWORK STRATEGIST-C Attending Provider A ctive Start: August 24, 2023 End: August 24, 2023 Team Status: Active Member Role Status Dates PHYSICIAN NO FAMILY Primary Care Provider Active Team Status: Inactive Member Role Status Dates Elizabeth Alvarado APRN NETWORK STRATEGIST-C Attending Provider A ctive Start: September 07, 2023 End: September 07, 2023 PHYSICIAN AKASH FAMILY Primary Care Provider Active Start: September 07, 2023 End: September 07, 2023 Team Status: Active Member Role Status Dates Elizabeth Alvarado APRN NETWORK STRATEGIST-René Primary Care Provide r Active Start: September 30, 2023 Zoey Ramirez APRN Active Start: September 30, 2023 Lorrie Baig DO Referring Provider Active Sta rt: September 30, 2023 Krzysztof Salazar II, DO Attending Provider Active Start: September 30, 2023 Team Status: Inactive Member Role Status Dates Elizabeth Alvarado APRN NETWORK STRATEGIST-René Primary Care Provide r Active Start: September [...] 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 RI REVJ TOTAL KNEE ARTHRP W/WO ALGRFT 1 COMPONENT RI REVJ TOT KNEE ARTHRP FEM&ENTIRE TIBIAL COMPONE RIGHT KNEE RIGHT TOTAL KNEE REVISION INSTRUMENTATION ANTONELLA FEMORAL & SCIATIC BLOCK Acosta Schafer MD [address] [place] [address] [facility] [id number] [place] [address] Referral ID Status Reason Start Date Expiration Date Visits Re quested Visits Authorized [id number] 1 1 Ordered Prescriptions (unrec ognized section [...] Sosa Poon RN)2057 (Given - Provider: Stefany Valdes RN) 08 (Given - Provider: Sosa Poon [...] at 250 mL/hr, Administer over 60 Minutes, BEAD WORKER SEWING TO O.R., On Renee 07/01/22 at 0845, [...] (Anesthesia Volume Adjustment - Provider: RHEA Adrian CAFETERIA COUNTER ATTENDANT)1324 (Anesthesia Volume Adjustment - Provider: RHEA Adrian [...] Renee 07/01/22 at 1502, Until Discontinued, Nausea, Vomiting
[...] BE BASED ON THE PRIMARY CLINICAL RECORDS. [facility] [employer] [facility]. provides no warranty or guarantee of the accuracy or completeness of information in this document.
== END 2024-01-06 08:38 | disposition home or self-care (01) ==
LOC: EC 08:37
PROVIDERS: Visit Provider Podiatrist Foot & Ankle Surgery
DX: M25.572 Pain in left ankle and joints of left foot (principal); S86.092A Other specified injury of left Achilles tendon, initial encounter
CPT/HCPCS: 73650

== ENCOUNTER 2024-01-25 09:26 | Outpatient (OUT) | payer OTHER, SELFPAY ==
--- NOTE | 2024-01-25 | XR_ITS ---
The [address] [address] Patient Name: GEETA VANCE MRN: [id number] date: 1970 Sex: F Assigned Patient Location: Current Patient Location: Accession/Order Number: [id number] Exam Date: 01/25/2024 09:34 Report Date: 01/26/2024 09:38 At the request of: HILDA RUELAS Procedure: XR ankle LT min 3V PROCEDURE: XR ankle LT min 3V COMPARISON: Right/10/16 HISTORY: LEFT ANKLE PAIN FINDINGS: BONES:Again demonstrated is a bone fragment along the expected course of the Achilles tendon likely representing an avulsion fracture along enthesopathic spurring of the posterior calcaneus. No fracture or dislocation. Moderate degenerative changes with joint space narrowing and marginal osteophyte formation SOFT TISSUES:Negative. No visible soft tissue swelling. EFFUSION:None visible. OTHER: Varicosities. XR/XR ankle LT min 3V IMPRESSION: Stable bone avulsion of the posterior calcaneus at the Achilles insertion Electronically authenticated by: PAUL CAGLE Date: 01/26/2024 09:38
== END 2024-01-25 09:27 | disposition home or self-care (01) ==
LOC: EC 09:27
PROVIDERS: Visit Provider Podiatrist Foot & Ankle Surgery
DX: M25.572 Pain in left ankle and joints of left foot (principal)
CPT/HCPCS: 73610

== ENCOUNTER 2024-03-02 08:58 | Emergency (ER) | payer OTHER, SELFPAY ==
[2024-03-02 09:03] VITALS: BP 152/94; PULSE 79; TEMP 36.8; O2SAT 96; BMI 42.2
--- NOTE | 2024-03-02 09:17 | ED_ITS ---
HPI - Animal Bite General Chief Complaint: Animal Bite Stated Complaint: DOG BITE, RIGHT HAND Time Seen by Provider: 03/02/24 09:02 Source: patient and family Source comment: patient Mode of arrival: walk-in History of Present Illness HPI narrative: 54-year-old female presents for dog bite. Her new puppy bit her on the palm of her right hand last night causing some puncture wounds. She had a tetanus shot less than a year ago. No other injury was sustained and she states she gets swollen when she takes penicillin. Related Data Home Medications ?Medication ?Instructions ?Recorded ?Confirmed albuterol sulfate 90 mcg/actuation inhalation 03/02/24 aerosol inhaler ammonium lactate 12 % topical cream applic topical 03/02/24 Previous Rx's ?Medication ?Instructions ?Recorded ketorolac 10 mg tablet 10 mg PO TID PRN pain #10 tabs 12/12/23 ciprofloxacin HCl 500 mg tablet 500 mg PO Q12H #10 tabs 03/02/24 (Cipro) clindamycin HCl 300 mg capsule 300 mg PO Q6H 5 days #20 caps 03/02/24 Allergies Allergy/AdvReac Type Severity Reaction Status Date / Time Penicillins AdvReac Severe Anaphylaxis Verified 12/12/23 17:11 Review of Systems ROS Narrative A ten point review of systems is negative except as noted above. PFSH PFSH Social History Little interest or pleasure in doing things: not at all Feeling down, depressed, or hopeless: not at all Exam Narrative Exam Narrative: Nurses note and vital signs reviewed and patient is not hypoxic. General: The patient appears well and in no apparent distress. Patient is resting comfortably on cart. Skin: Warm, dry, no pallor noted. There is no rash noted. Head: Normocephalic, atraumatic Eye: Normal conjunctiva, no drainage Ears, Nose, Mouth, and Throat: oral mucosa is moist. Nares patent. Cardiovascular: Regular Rate and Rhythm Respiratory: Patient is in no distress, no accessory muscle use Back: non-tender GI: Soft and nontender Musculoskeletal: The right hand is inspected. The fingers are unaffected. She has several healing puncture type lucero on the palm of her left hand. She has good range of motion of her fingers though this causes some discomfort. No swelling in the fingers. No bleeding or purulent drainage or lymphangitis. Neurological: A&O, normal speech Psychiatric: Cooperative Constitutional Vital Signs, click to edit/add: Last Vital Signs Temp 98.3 F 03/02/24 09:03 Pulse 79 03/02/24 09:03 Resp 16 03/02/24 09:03 BP 152/94 H 03/02/24 09:03 Pulse Ox 96 03/02/24 09:03 O2 Del Method Room Air 03/02/24 09:03 Course Vital Signs Vital signs: Vital Signs Temperature 98.3 F 03/02/24 09:03 Pulse Rate 79 03/02/24 09:03 Respiratory Rate 16 03/02/24 09:03 Blood Pressure 152/94 H 03/02/24 09:03 Pulse Oximetry 96 03/02/24 09:03 Oxygen Delivery Method Room Air 03/02/24 09:03 Temperature 98.3 F 03/02/24 09:03 Pulse Rate 79 03/02/24 09:03 Respiratory Rate 16 03/02/24 09:03 Blood Pressure 152/94 H 03/02/24 09:03 Pulse Oximetry 96 03/02/24 09:03 Oxygen Delivery Method Room Air 03/02/24 09:03 MDM - Animal Bite MDM Narrative Medical decision making narrative: Tetanus status is up-to-date. She is placed on a 5-day course of prophylactic clindamycin and Cipro due to her severe penicillin allergy. Treatment diagnosis and follow-up were discussed with the patient. Differential Diagnosis Differential diagnosis: Likely dog bite Discharge Plan Discharge Chief Complaint: Animal Bite Clinical Impression: Dog bite Patient Disposition: Home, Self-Care Time of Disposition Decision: 09:15 Condition: Good Mode of Transportation: Private Vehicle Prescriptions / Home Meds: New clindamycin HCl 300 mg capsule 300 mg PO Q6H 5 Days Qty: 20 0RF ciprofloxacin HCl [Cipro] 500 mg tablet 500 mg PO Q12H Qty: 10 0RF No Action ammonium lactate 12 % cream TOPICAL albuterol sulfate 90 mcg/actuation HFA aerosol inhaler INHALATION ketorolac 10 mg tablet 10 mg PO TID PRN (Reason: pain) Qty: 10 0RF Print Language: Icelandic Instructions: Animal Bite (ED) Referrals: Physician,Non-Staff, MD [Primary Care Provider] - 1 week
[2024-03-02 09:25] VITALS: BP 142/88
== END 2024-03-02 09:25 | disposition home or self-care (01) ==
PROVIDERS: Emergency Provider Emergency Medicine
DX: S61.451A Open bite of right hand, initial encounter (principal); W54.0XXA Bitten by dog, initial encounter
CPT/HCPCS: 99283

== ENCOUNTER 2024-03-20 14:35 | Outpatient (OUT) | payer MEDICARE, MEDICAID, SELFPAY ==
--- NOTE | 2024-03-20 14:44 | VEIN_ITS ---
The [address] [address] Patient Name: GEETA VANCE MRN: [id number] date: 1970 Sex: F Assigned Patient Location: Current Patient Location: Accession/Order Number: [id number] Exam Date: 03/20/2024 14:44 Report Date: 03/26/2024 07:54 At the request of: HILDA RUELAS Procedure: VC SEGMENTAL PRESSURES EXAM: VC SEGMENTAL PRESSURES HISTORY: R09.89 COMPARISON: None. FINDINGS: Segmental pressures presented as follows (right, left) in mmHg. Brachial: 154, 164 Lower thigh: 219, 214 Calf: 178, 204 DPA: 105, 79 OVEN BUILDER: 158, 118 1st Toe: 211, 200 PEG: 0.96, 0.72 TBI: 1.29, 1.22 The ABIs demonstrate mild arterial occlusive disease The TBI's are Acceptable PVR waveforms: Right leg: Thigh: Normal Above knee: Normal Below knee: Normal Right ankle: Normal Left leg: Thigh: Normal Above knee: Normal Below knee: Normal Right ankle: Normal VEIN/VC SEGMENTAL PRESSURES IMPRESSION: ABIs demonstrate mild arterial occlusive disease Normal PVR waveforms Electronically authenticated by: PAUL CAGLE Date: 03/26/2024 07:54
== END 2024-03-20 14:36 | disposition home or self-care (01) ==
PROVIDERS: Visit Provider Podiatrist Foot & Ankle Surgery
DX: R09.89 Other specified symptoms and signs involving the circulatory and respiratory systems (principal)
CPT/HCPCS: 93923

== ENCOUNTER 2024-04-04 12:49 | Outpatient (OUT) | payer MEDICARE, MEDICAID, SELFPAY ==
--- NOTE | 2024-04-03 16:05 | V.VEINS.HP ---
Vital Signs 04/04/24 13:00 BP 132/72 BP Location Right Brachial BP Position Supine BP Cuff Size Large Adult BP Source Automatic Cuff Pulse 72 Pulse Source Monitor Pulse Oximetry (%) 96 Oxygen Delivery Method Room Air Comment The patient's blood pressure is elevated. Varicose Veins Patient is a 54 year old female in this day with c/o bilateral leg pain and edema for approximately 10 years at that time patient had laser procedure performed to varicose vein in left leg with little resolve of pain/edema. Patient has worn bilateral leg knee high compression stocking ever since. Patient has no family history of varicose veins nor any history of DVT's. Patient states she has such pain that she is unable to walk any distance. Bhavin Oshea MD personally performed the services described in this documentation, as scribed by Torres Man RN in my presence and it is both accurate and complete. ITorres RN, am scribing for, and in the presence of, Dr. Bhavin Orourke and in the presence of the patient. . thigh: bilateral (symptoms left leg > right leg), knee: bilateral, calf: bilateral, ankle: bilateral and paz: bilateral aching, burning and cramping 9 10 years Worsened in recent months: Yes standing and sitting analgesics, elevating extremities and compression stockings Reports muscle spasms of leg, heaviness, limb pain, edema and leg edema History of lower extremity trauma: No Superficial thrombophlebitis: No Family history of varicose veins: no Has patient had previous lower extremity venous surgery: Yes Patient has previously received the following treatment(s) for lower extremity varicose veins: Reports laser therapy Does patient have a history of : yes Does patient intend to have future pregnancies: no Has patient had lower extremity venous scan with relux testing: No Support hose used: Yes Problems walking or doing physical activity: Yes How does it affect you: decreased asctivity secondary to pain Do you walk much: Yes Do you stand much: Yes Review of Systems ROS Narrative Bhavin Oshea MD personally performed the services described in this documentation, as scribed by Torres Man RN in my presence and it is both accurate and complete. Torres Oshea RN, am scribing for, and in the presence of, Dr. Bhavin Orourke and in the presence of the patient. Status of ROS 10 or more systems reviewed and unremarkable except as noted in history and below Cardiovascular Reports: edema Integumentary/Breast Reports: itching, redness and changes in skin color Neurological Reports: weakness in extremities [facility]SH [facility] Medical History (Updated 04/04/24 @ 14:40 by Torres Man) Superficial thrombophlebitis of left leg ?I80.02 - Phlebitis and thrombophlebitis of superficial vessels of left lower extremity (ICD-10) Phlebitis of superficial vein of right lower extremity ?I80.01 - Phlebitis and thrombophlebitis of superficial vessels of right lower extremity (ICD-10) Obesity ?E66.9 - Obesity, unspecified (ICD-10) Asthma ?J45.909 - Unspecified asthma, uncomplicated (ICD-10) Pain due to varicose veins of both lower extremities ?I83.813 - Varicose veins of bilateral lower extremities with pain (ICD-10) Surgical History (Updated 04/04/24 @ 13:12 by Torres Man) H/O tubal ligation ?Z98.51 - Tubal ligation status (ICD-10) History of bilateral knee replacement ?Z96.653 - Presence of artificial knee joint, bilateral (ICD-10) Status post laser ablation of incompetent vein ?Z98.890 - Other specified postprocedural states (ICD-10) Social History Little interest or pleasure in doing things: not at all Feeling down, depressed, or hopeless: not at all Meds Home Medications and Allergies Home Medications ?Medication ?Instructions ?Recorded ?Confirmed ?Type albuterol sulfate 90 mcg/actuation inhalation 03/02/24 History aerosol inhaler ammonium lactate 12 % topical cream applic topical 03/02/24 History celecoxib 50 mg capsule (Celebrex) 50 mg PO DAILY 04/04/24 04/04/24 History gabapentin 100 mg capsule 100 mg PO BID 04/04/24 04/04/24 History ropinirole 0.5 mg tablet 0.5 mg PO DAILY 04/04/24 04/04/24 History Allergies Allergy/AdvReac Type Severity Reaction Status Date / Time Penicillins AdvReac Severe Anaphylaxis Verified 12/12/23 17:11 Exam Narrative Exam Narrative: I, Bhavin Orourke MD personally performed the services described in this documentation, as scribed by Torres Man RN in my presence and it is both accurate and complete. Torres Oshea RN, am scribing for, and in the presence of, Dr. Bhavin Orourke and in the presence of the patient. Constitutional Documenting provider has reviewed patient's vital signs: yes Common normals: oriented x3 Nutritional appearance: overweight Cardio Peripheral pulses: posterior tibial pulses present and dorsalis pedis pulses present Extremity Common normals: normal capillary refill General: calf tenderness and edema Right lower extremity: lower leg Right lower leg: inspection and palpation Left lower extremity: lower leg Left lower leg: inspection and palpation Neuro Common normals: oriented x3 Results Additional Findings Additional findings: Bilateral leg reflux u/s reveals bilateral leg great saphenous, small saphenous, and anterior accessory saphenous varicosities with associated dilation along with bilateral leg branch saphenous truncal tributary varicosities. Bhavin Oshea MD personally performed the services described in this documentation, as scribed by Torres Man RN in my presence and it is both accurate and complete. Torres Oshea RN, am scribing for, and in the presence of, Dr. Bhavin Orourke and in the presence of the patient. Assessment and Plan Assessment and Plan (1) Avulsion fracture of left ankle: (2) Acute bilateral ankle pain: Plan Patient is for patient to continue use of knee high compression stockings, rest, and elevation. Patient to return for EVLt's of left GSV, Right GSV, left AASV, right AASV, left SSV, and right SSV. Once EVLT's are complete, move forward with microfoam chemical ablation bilateral leg branch saphenous varicosities. Bhavin Oshea MD personally performed the services described in this documentation, as scribed by Torres Man RN in my presence and it is both accurate and complete. Torres Oshea RN, am scribing for, and in the presence of, Dr. Bhavin Orourke and in the presence of the patient.
--- NOTE | 2024-04-03 16:08 | P.DS_ITS ---
Discharge Plan Discharge Disposition: Home, Self-Care Outpatient Diagnostics: VC Endovenous Ablation 1VeinLT (Routine) Timeframe: 2 Weeks Facility: [facility] - Location: [facility]in Center Ordered By: Bhavin Orourke VC Facility EST LMTD (Routine) Timeframe: 2 Weeks Facility: [facility] - Location: Vein Center Ordered By: Bhavin Orourke VC EXT Venous RT LMTD (Routine) Timeframe: 2 Weeks Facility: [facility] - Location: Vein Center Ordered By: Bhavin Orourke Plan of Treatment: EVLT of left GSV Print Language: Lao Discharge Date/Time: 04/04/24 15:16
--- NOTE | 2024-04-04 12:50 | VEIN_ITS ---
Patient Name: GEETA VANCE MR#: [id number] : 1970 Exam Date: 04/04/2024 Ordering Doctor: DR BHAVIN OROURKE M.D. RADIOLOGY REPORT PROCEDURE: [facility] - OFFICE VISIT INITIAL COMPARISON: None. PROGRESS NOTES: 54-year-old female who presents with a 10 year history of lower extremity pain swelling and varicose veins. Several years ago the patient had intravenous laser ablation of a left leg varicose veins but could not remember additional details this was done by vascular surgery in [facility]. The patient's symptoms are significantly worsened by prolonged sitting and standing and are only partially relieved by leg elevation over the counter oral analgesics and compression stockings which she has worn for many years. The patient has difficulty walking due to peripheral neuropathy for which she is on Neurontin. The patient denies any signs and symptoms to suggest arterial ischemia. The patient describes no significant family history. Past medical history significant for obesity, asthma and varicose veins. Surgical history significant for bilaterally displacement, tubal ligation. The patient does not smoke. No history of deep venous thrombus or pulmonary embolus. See separate history and physical for medication list. Single intravenous laser ablation of the left leg. The patient has worn compression stockings for many years. Nursing notes were reviewed. After history and physical exam I discussed at length the pathophysiology of venous hypertension and possible treatments, therapies and strategies available. We discussed at length the importance of elevating the lower extremities above the level of the heart, increased physical activity and compression stocking use. We discussed conservative treatment with compression stockings. Surgical interventions including ligation stripping and phlebectomy. We discussed risks benefits and alternatives related to intravenous laser ablation, micro foam chemical ablation and injection sclerotherapy. The patient's questions were answered Ultrasound venous reflux study performed the same day was discussed at length with the patient. The report demonstrates severe right and moderate left great saphenous vein venous insufficiency. Moderate bilateral small saphenous vein venous insufficiency. Severe bilateral anterior accessory saphenous vein venous insufficiency. Severe right and moderate left deep vein reflux. Bilateral incompetent perforating veins. Bilateral incompetent varicose veins. PHYSICAL EXAM: The right leg demonstrates moderate varicose reticular and spider veins. Mild hemosiderin staining below the knee. Mild subcutaneous edema. No active ulceration The left leg demonstrates extensive varicose, reticular and spider veins. Mild to moderate hemosiderin staining paired mild to moderate subcutaneous edema. No active ulceration Both thighs, legs and feet were symmetrically warm to the touch. Good posterior tibial and dorsalis pedis pulses were present bilaterally. VEIN/VC Facility EST Comprehensive IMPRESSION: 1. Bilateral great, small and anterior accessory saphenous vein venous insufficiency with dilatation and saphenofemoral/saphenous popliteal junction reflux 2. Moderate right and severe left lower extremity incompetent varicose veins 3. Mild right and moderate left lower extremity subcutaneous edema 4. No definite flow significant arterial disease 5. CEAP: C4a, Ep, As, Pr PLAN: 1. Endovenous laser ablation left great saphenous vein followed by right anterior accessory saphenous vein followed by left anterior accessory saphenous vein followed by right small saphenous vein followed by left small saphenous vein 2. Micro foam chemical ablation bilateral incompetent varicose veins 3. Injection sclerotherapy of reticular and spider veins 4. Long-term use of bilateral knee or thigh-high 20-30 mm compression stockings 5. Weight loss and increased physical activity for symptomatic relief Nurse notes, history and physical were reviewed and confirmed, see attached forms. The nurse was present throughout the physical exam and consultation Dictated by: Bhavin Orourke MD on 04/04/2024 at 14:29 Approved by: Bhavin Orourke MD on 04/04/2024 at 14:55
--- NOTE | 2024-04-04 12:50 | VEIN_ITS ---
Patient Name: GEETA VANCE MR#: [id number] : 1970 Exam Date: 04/04/2024 Ordering Doctor: DR BHAVIN OROURKE M.D. RADIOLOGY REPORT PROCEDURE: VC EXT VENOUS REFLUX DANISH LMTD COMPARISON: None. INDICATIONS: I83.813 Bilateral painful varicose veins TECHNIQUE: Duplex imaging of the lower extremity to assess the deep and superficial venous system for the presence of deep or superficial venous incompetence and to document the location and severity of disease. The study includes evaluation of the great saphenous vein (GSV), anterior accessory saphenous vein (AASV) and small saphenous vein (SSV). Patient scanned in reverse Trendelenburg and standing. FINDINGS: RIGHT LOWER EXTREMITY: Saphenofemoral Junction Reflux: Yes 10.6mm 1.3 sec GSV: Diam (mm) Reflux/ Time (sec) Proximal Thigh 10.4 Yes 3.2 Mid Thigh 7.3 Yes 2.4 Distal Thigh 6.3 Yes 3.3 Prox Calf 6.0 Yes 1.0 Mid Calf 4.4 Yes 0.9 Saphenopopliteal Junction Reflux: 6.8mm Yes 1.0 SSV: Proximal Calf 7.0 Yes 0.5 Mid Calf 7.0 Yes 2.0 AASV: Proximal Thigh 6.0 Yes 1.1 Mid Thigh 5.0 Yes 4.1 Distal Thigh 3.5 Yes 0.6 Thrombi: No acute or chronic thrombus Compressibility: Normal. Flow: Severe deep venous reflux. Preforator: Distal medial lower leg 6.6 mm, 2.1s reflux. Prox posterior calf off gastroc 4.6 mm, 0.8s reflux. Tech Note: Incompetent varicose vein distal medial lower leg measures 4.0 mm with 1.5s reflux. Varicose vein prox lateral lower leg measures 4.4 mm with 0.7s reflux. Varicose vein distal medial thigh measures 4.4 mm with 1.0s reflux. Varicose vein mid posterior calf measures 5.1 mm with 3.7s reflux. LEFT LOWER EXTREMITY: Saphenofemoral Junction Reflux: Yes 13.1 mm 2.3 sec GSV: Diam (mm) Reflux/Time (sec) Proximal Thigh 9.4 Yes 2.3 Mid Thigh N/A Distal Thigh N/A Prox Calf 7.0 Yes 0.8 Mid Calf 4.9 Yes 0.7 Saphenopopliteal Junction Relux: 8.3 mm Yes 1.4 SSV: Proximal Calf 9.5 Yes 2.3 Mid Calf 6.9 Yes 1.3 AASV: Proximal Thigh 5.5 Yes 0.5 Mid Thigh 4.3 Yes 3.1 Distal Thigh Thrombi: No acute or chronic thrombus. Compressibility: Normal. Flow: Moderate deep venous reflux. Collection Manager: Distal medial lower leg 7.5 mm with 2.7s reflux. Proximal medial lower leg 4.5 mm with 2.4s reflux. Prox post calf 6.8 mm with 2.4s reflux. Tech Note: Prox-distal GSV in thigh previously treated. AASV becomes tortuous approximately 8 cm from SFJ. Posterior accessory saphenous vein arises off of proximal GSV and extends to distal thigh measures 5.6 mm with 2.2s reflux. Large varicose vein that arises off of proximal SSV approximately 2.5 cm from SFJ measures 12.4mm with 2.4s reflux. Incompetent varicose vein proximal posterior calf measures 7.8 mm with 1.3s reflux. Varicose vein distal medial calf measures 5.6mm with 3.2s reflux. CONCLUSION: 1. Severe right and moderate left great saphenous vein venous insufficiency with dilatation and saphenofemoral junction reflux 2. Moderate bilateral small saphenous vein venous insufficiency with dilatation saphenous popliteal junction reflux 3. Severe bilateral anterior accessory saphenous vein venous insufficiency with dilatation 4. Severe right and moderate left deep vein reflux 5. Bilateral incompetent perforating veins 6. Bilateral incompetent varicose veins Dictated by: Bhavin Orourke MD on 04/04/2024 at 14:03 Approved by: Bhavin Orourke MD on 04/04/2024 at 14:16
[2024-04-04 13:00] VITALS: BP 132/72; PULSE 72; O2SAT 96
== END 2024-04-04 15:16 | disposition home or self-care (01) ==
LOC: VC 12:49
PROVIDERS: PCP Radiology Diagnostic Radiology; Visit Provider Radiology Diagnostic Radiology
DX: I83.813 Varicose veins of bilateral lower extremities with pain (principal)
CPT/HCPCS: 93970; G0463

== ENCOUNTER 2024-05-09 13:51 | Outpatient (OUT) | payer MEDICARE, SELFPAY ==
--- NOTE | 2024-05-09 10:08 | V.VEINS.HP ---
Vital Signs 05/09/24 14:00 BP 142/80 H BP Location Left Brachial BP Position Sitting BP Cuff Size Large Adult BP Source Manual Cuff Respiration 18 Pulse 83 Pulse Source Monitor Pulse Oximetry (%) 98 Oxygen Delivery Method Room Air Comment The patient's blood pressure is elevated. Varicose Veins Patient in this day for EVLT of right GSV Bhavin Oshea MD personally performed the services described in this documentation, as scribed by Torres Man RN in my presence and it is both accurate and complete. Torres Oshea RN, am scribing for, and in the presence of, Dr. Bhavin Orourke and in the presence of the patient. . thigh: bilateral (symptoms left leg > right leg), knee: bilateral, calf: bilateral, ankle: bilateral and paz: bilateral aching, burning and cramping 9 10 years Worsened in recent months: Yes standing and sitting analgesics, elevating extremities and compression stockings Reports muscle spasms of leg, heaviness, limb pain, edema and leg edema History of lower extremity trauma: No Superficial thrombophlebitis: No Family history of varicose veins: no Has patient had previous lower extremity venous surgery: Yes Patient has previously received the following treatment(s) for lower extremity varicose veins: Reports laser therapy Does patient have a history of : yes Does patient intend to have future pregnancies: no Has patient had lower extremity venous scan with relux testing: No Support hose used: Yes Problems walking or doing physical activity: Yes How does it affect you: decreased asctivity secondary to pain Do you walk much: Yes Do you stand much: Yes Review of Systems ROS Narrative Bhavin Oshea MD personally performed the services described in this documentation, as scribed by Torres Man RN in my presence and it is both accurate and complete. Torres Oshea RN, am scribing for, and in the presence of, Dr. Bhavin Orourke and in the presence of the patient. Status of ROS 10 or more systems reviewed and unremarkable except as noted in history and below Cardiovascular Reports: edema Integumentary/Breast Reports: itching, redness and changes in skin color Neurological Reports: weakness in extremities [facility] Medical History (Updated 04/04/24 @ 14:40 by Torres Man) Superficial thrombophlebitis of left leg ?I80.02 - Phlebitis and thrombophlebitis of superficial vessels of left lower extremity (ICD-10) Phlebitis of superficial vein of right lower extremity ?I80.01 - Phlebitis and thrombophlebitis of superficial vessels of right lower extremity (ICD-10) Obesity ?E66.9 - Obesity, unspecified (ICD-10) Asthma ?J45.909 - Unspecified asthma, uncomplicated (ICD-10) Pain due to varicose veins of both lower extremities ?I83.813 - Varicose veins of bilateral lower extremities with pain (ICD-10) Surgical History (Updated 05/09/24 @ 14:21 by Torres Man) H/O tubal ligation ?Z98.51 - Tubal ligation status (ICD-10) History of bilateral knee replacement ?Z96.653 - Presence of artificial knee joint, bilateral (ICD-10) Status post laser ablation of incompetent vein ?Z98.890 - Other specified postprocedural states (ICD-10) Social History Little interest or pleasure in doing things: not at all Feeling down, depressed, or hopeless: not at all Meds Home Medications and Allergies Home Medications ?Medication ?Instructions ?Recorded ?Confirmed ?Type albuterol sulfate 90 mcg/actuation inhalation 03/02/24 History aerosol inhaler ammonium lactate 12 % topical cream applic topical 03/02/24 History celecoxib 50 mg capsule (Celebrex) 50 mg PO DAILY 04/04/24 04/04/24 History gabapentin 100 mg capsule 100 mg PO BID 04/04/24 04/04/24 History ropinirole 0.5 mg tablet 0.5 mg PO DAILY 04/04/24 04/04/24 History Allergies Allergy/AdvReac Type Severity Reaction Status Date / Time Penicillins AdvReac Severe Anaphylaxis Verified 12/12/23 17:11 Exam Narrative Exam Narrative: IBhavin MD personally performed the services described in this documentation, as scribed by Torres Man RN in my presence and it is both accurate and complete. ITorres RN, am scribing for, and in the presence of, Dr. Bhavin Orourke and in the presence of the patient. Constitutional Documenting provider has reviewed patient's vital signs: yes Common normals: oriented x3 Nutritional appearance: overweight Cardio Peripheral pulses: posterior tibial pulses present and dorsalis pedis pulses present Extremity Common normals: normal capillary refill General: calf tenderness and edema Right lower extremity: lower leg Right lower leg: inspection and palpation Left lower extremity: lower leg Left lower leg: inspection and palpation Neuro Common normals: oriented x3 Assessment and Plan Assessment and Plan (1) Pain due to varicose veins of both lower extremities: Plan F/u evaluation with physician along with right leg limited u/s ??? I, Bhavin Orourke MD personally performed the services described in this documentation, as scribed by Torres Man RN in my presence and it is both accurate and complete. I, Torres Man RN, am scribing for, and in the presence of, Dr. Bhavin Orourke and in the presence of the patient. Procedures Procedure Instructions Procedures Plan of care: Risks and benefits of the procedure were discussed at length and informed written consent was obtained.? Time-out completed for verification of correct patient, procedure and site.? Staff present during time-out: Torres Man RN,? Bhavin Orourke MD, Ann Jack [facility], Time Out Time__3611____ Patient prepped and procedure performed in usual sterile fashion. Risk of injury related to use of Diode laser and/or laser devices__CR___ ? Serial number of laser used :? [id number] Control panel self test performed, electrical cords in good condition, floor is dry, basin of water available, fire extinguisher in close proximity_CR__ Polycarbonate goggles available and Laser warning signs outside of doors___CR__ Eye protection provided to patient and staff in room_CR___ Use of laser retardant drapes and dull blackened instruments as directed__CR___ Use of nonflammable prep solutions and use of saline soaked sponges to protect tissues as indicated _CR___ Length ___39 cm Laser operated by ___Dr. Orourke Physician verbal confirmation laser locked in place__CR__ Laser start time (date and time) _05/09/2024@_1456 Laser stop time(date and time) _05/19/2024@_1459 Woo _8.0___ Average laser use ___1994____Joules Average laser use___249 seconds Pulse continuous ___CR_? Pulse intermittent ___ Amount of Tumescent used __250cc____ Evaluated patient for signs and symptoms of electrical injury __CR___ ? Skin clear at insertion site __CR___ Patient tolerated procedure well.? Left leg Coban dressing applied to access site.? Applied Left thigh high leg compression stocking. Will return on 05/16/2024 for Left leg limited venous ultrasound and exam. I, Bhavin Orourke MD personally performed the services described in this documentation, as scribed by Torres Man RN in my presence and it is both accurate and complete. I, Torres Man RN, am scribing for, and in the presence of, Dr. Bhavin Orourke and in the presence of the patient.
--- NOTE | 2024-05-09 10:11 | W.VEIN ---
Discharge Plan Discharge Disposition: Home, Self-Care Outpatient Diagnostics: VC Facility EST LMTD (Routine) Timeframe: 2 Weeks Facility: [facility] - Location: Vein Center Ordered By: Bhavin Orourke VC EXT Venous LT Limited (Routine) Timeframe: 2 Weeks Facility: [facility] - Location: Vein Center Ordered By: Bhavin Orourke Plan of Treatment: f/u evaluation with physician along with left leg limited u/s Patient Instructions: Endovenous Ablation (DC) Print Language: Maori Discharge Date/Time: 05/09/24 15:46
[2024-05-09] MEDS: LIDOCAINE HCL 1% 100 MG/10 ML MDV INJ (13:50)
[2024-05-09] MEDS: 0.9 % SODIUM CHLORIDE 500 ML, LIDOCAINE HCL 20 ML, SODIUM BICARBONATE 10 MEQ INJ (13:51)
--- NOTE | 2024-05-09 13:52 | VEIN_ITS ---
[address] [address] Patient Name: GEETA VANCE MRN: [id number] date: 1970 Sex: F Assigned Patient Location: Current Patient Location: Accession/Order Number: [id number] Exam Date: 05/09/2024 14:00 Report Date: 05/09/2024 15:26 At the request of: PAUL CAGLE Procedure: VC Endovenous Ablation 1VeinLT EXAMINATION: VC Endovenous Ablation 1Vein, left great saphenous vein HISTORY: I83.813 - Varicose veins of bilateral lower extremities w... COMPARISON: No relevant comparison available. TECHNIQUE: The risks and benefits of the procedure had been previously discussed, and were rediscussed at length. Informed written consent was obtained. Ashly Jack and Torres Man assisted. Time out procedure was performed. The left lower extremity was prepared and draped in the usual sterile fashion to allow knee flexion in the sterile field. Duplex ultrasound probe was draped in a sterile cover, sterile transmission gel was used. Venous mapping was performed with the areas of dilation and large tributaries marked. The total length was 39 cm from the entry mid lower leg to 3 cm below the saphenofemoral junction. The diameter of the greater saphenous vein ranged from 6-10 mm. A 30 gauge needle and 1% buffered lidocaine was used to anesthetize the entry site. A 4 mm incision was made with a scalpel and the saphenous vein was entered percutaneously under direct ultrasound guidance with a micropuncture set, a single stick was successful in gaining access. A micro-guide wire was inserted and the needle removed. A micro-set including a dilator was inserted over the microwire and the needle and dilator were removed. A 0.018 guide wire was inserted through the micro-set and threaded through the saphenous vein to the saphenofemoral junction. The dilator was removed and an introducer sheath was inserted over the wire until the end of the sheath entered the saphenofemoral junction. The dilator and wire were removed and the 600 micron fiber was introduced and placed and positioned so that it extended beyond the sheath and was 3 cm peripheral to the saphenofemoral femoral junction. Final position of the fiber was determined by ultrasound guidance and duplex imaging. Tumescent anesthetic was delivered by ultrasound guidance. 250 cc of fluid was delivered along the entire course of the saphenous vein. The solution consisted of 1000 cc of normal saline with 40 mL of 1% lidocaine and 20 mL of sodium bicarbonate. A final positioning check was made. The energy source was turned on by means of the foot pedal and the fiber and sheath were withdrawn. The total number of Joules delivered was 1995. The laser was active for 249 seconds under continuous pulse, average laser use of 8 J. Laser start time 1456 AM . Laser stop time 1459AM . A duplex ultrasound revealed compressibility and flow at the saphenofemoral junction immediately after the procedure. Hemostasis at the access site was achieved. The skin incision of the saphenous vein was closed with a 4 x 4. A compression stocking was applied. Postop instructions were given. A follow up appointment was recommended and scheduled. The patient tolerated the procedure well and was discharged in good condition . VEIN/VC Endovenous Ablation 1VeinLT IMPRESSION: Technically successful endovenous laser ablation left great saphenous vein Electronically authenticated by: PAUL CAGLE Date: 05/09/2024 15:26
[2024-05-09 14:00] VITALS: BP 142/80; PULSE 83; O2SAT 98
== END 2024-05-09 15:46 | disposition home or self-care (01) ==
PROVIDERS: PCP Radiology Diagnostic Radiology; Visit Provider Radiology Diagnostic Radiology
DX: I83.813 Varicose veins of bilateral lower extremities with pain (principal)
CPT/HCPCS: 36478

== ENCOUNTER 2024-05-16 09:40 | Outpatient (OUT) | payer MEDICARE, SELFPAY ==
[2024-05-16 07:50] VITALS: BMI 42.2
--- NOTE | 2024-05-16 07:50 | VEINCLINIC_ITS ---
Vital Signs 05/16/24 07:50 Height 5 ft 5 in Weight 115 kg BMI 42.2 Varicose Veins Patient in today for follow up ultrasound of left lower extremity following EVLT of right GSV completed on 05/09/24. Flo Oshea MD personally performed the services described in this documentation, as scribed by Ann Jack RDMS in my presence and it is both accurate and complete. Ann Oshea RDMS, am scribing for, and in the presence of, Dr. Flo Ta and in the presence of the patient. thigh: bilateral (symptoms left leg > right leg), knee: bilateral, calf: bilateral, ankle: bilateral and paz: bilateral aching, burning and cramping 9 10 years Worsened in recent months: Yes standing and sitting analgesics, elevating extremities and compression stockings Reports muscle spasms of leg, heaviness, limb pain, edema and leg edema History of lower extremity trauma: No Superficial thrombophlebitis: No Family history of varicose veins: no Has patient had previous lower extremity venous surgery: Yes Patient has previously received the following treatment(s) for lower extremity varicose veins: Reports laser therapy Does patient have a history of : yes Does patient intend to have future pregnancies: no Has patient had lower extremity venous scan with relux testing: No Support hose used: Yes Problems walking or doing physical activity: Yes How does it affect you: decreased asctivity secondary to pain Do you walk much: Yes Do you stand much: Yes Review of Systems ROS Narrative Flo Oshea MD personally performed the services described in this documentation, as scribed by Ann Jack RDMS in my presence and it is both accurate and complete. Ann Oshea RDMS, am scribing for, and in the presence of, Dr. Flo Ta and in the presence of the patient. Status of ROS 10 or more systems reviewed and unremark able except as noted in history and below Cardiovascular Reports: edema Integumentary/Breast Reports: itching, redness and changes in skin color Neurological Reports: weakness in extremities [facility] Medical History (Updated 04/04/24 @ 14:40 by Torres Man) Superficial thrombophlebitis of left leg ?I80.02 - Phlebitis and thrombophlebitis of superficial vessels of left lower extremity (ICD-10) Phlebitis of superficial vein of right lower extremity ?I80.01 - Phlebitis and thrombophlebitis of superficial vessels of right lower extremity (ICD-10) Obesity ?E66.9 - Obesity, unspecified (ICD-10) Asthma ?J45.909 - Unspecified asthma, uncomplicated (ICD-10) Pain due to varicose veins of both lower extremities ?I83.813 - Varicose veins of bilateral lower extremities with pain (ICD-10) Surgical History (Updated 05/09/24 @ 14:21 by Torres Man) H/O tubal ligation ?Z98.51 - Tubal ligation status (ICD-10) History of bilateral knee replacement ?Z96.653 - Presence of artificial knee joint, bilateral (ICD-10) Status post laser ablation of incompetent vein ?Z98.890 - Other specified postprocedural states (ICD-10) Social History Little interest or pleasure in doing things: not at all Feeling down, depressed, or hopeless: not at all Meds Home Medications and Allergies Home Medications ?Medication ?Instructions ?Recorded ?Confirmed ?Type albuterol sulfate 90 mcg/actuation inhalation 03/02/24 History aerosol inhaler ammonium lactate 12 % topical cream applic topical 03/02/24 History celecoxib 50 mg capsule (Celebrex) 50 mg PO DAILY 04/04/24 04/04/24 History gabapentin 100 mg capsule 100 mg PO BID 04/04/24 04/04/24 History ropinirole 0.5 mg tablet 0.5 mg PO DAILY 04/04/24 04/04/24 History Allergies Allergy/AdvReac Type Severity Reaction Status Date / Time Penicillins AdvReac Severe Anaphylaxis Verified 12/12/23 17:11 Exam Narrative Exam Narrative: IFlo MD personally performed the services described in this documentation, as scribed by Ann Jack RDMS in my presence and it is both accurate and complete. I, Ann Jack RDMS, am scribing for, and in the presence of, Dr. Flo Ta and in the presence of the patient. Constitutional Documenting provider has reviewed patient's vital signs: yes Common normals: oriented x3 Nutritional appearance: overweight Cardio Peripheral pulses: posterior tibial pulses present and dorsalis pedis pulses present Extremity Common normals: normal capillary refill General: calf tenderness and edema Right lower extremity: lower leg Right lower leg: inspection and palpation Left lower extremity: lower leg Left lower leg: inspection and palpation Neuro Common normals: oriented x3 Results Imaging Venous US: Radiologist's impression: Heat induced thrombus in right GSV 2.8 cm from SFJ and extends to proximal calf. Flo Oshea MD personally performed the services described in this documentation, as scribed by Ann Jack RDMS in my presence and it is both accurate and complete. Ann Oshea RDMS, am scribing for, and in the presence of, Dr. Flo Ta and in the presence of the patient. Assessment and Plan Assessment and Plan (1) Phlebitis of superficial vein of right lower extremity: Plan Plan is for patient to return for EVLT of left SSV on 05/23/24. Flo Oshea MD personally performed the services described in this documentation, as scribed by Ann Jack RDMS in my presence and it is both accurate and complete. Ann Oshea RDMS, am scribing for, and in the presence of, Dr. Flo Ta and in the presence of the patient.
--- NOTE | 2024-05-16 09:43 | VEIN_ITS ---
Patient Name: GEETA VANCE MR#: [id number] : 1970 Exam Date: 05/16/2024 Ordering Doctor: DR PAUL CAGLE M.D. RADIOLOGY REPORT PROCEDURE: VC EXT VENOUS RT LMTD COMPARISON: None. INDICATIONS: I80.01 - Phlebitis and thrombophlebitis of superficial veins right leg TECHNIQUE: Lower extremity covington scale and Duplex Doppler evaluation of the deep venous system from the inguinal ligament through the calf veins. FINDINGS: REGION: Right lower extremity. THROMBI: Negative for DVT. Heat induced thrombus in right GSV 2.8 cm from SFJ and extends to proximal calf. COMPRESSIBILITY: Non-compressible segments corresponding to thrombus FLOW: Areas of no flow corresponding to thrombus OTHER: CONCLUSION: 1. Successful post ablation occlusion of right great saphenous vein. Dictated by: Flo Ta M.D. on 05/16/2024 at 10:42 Approved by: Flo Ta M.D. on 05/16/2024 at 10:45
--- NOTE | 2024-05-16 09:43 | VEIN_ITS ---
Patient Name: GEETA VANCE MR#: [id number] : 1970 Exam Date: 05/16/2024 Ordering Doctor: DR PAUL CAGLE M.D. RADIOLOGY REPORT PROCEDURE: VC FACILITY EST LMTD VEIN CENTER - OFFICE VISIT FOLLOW UP COMPARISON: None. PROGRESS NOTES: The patient reports improvement in leg symptoms. There has been interval reduction in varicosities. The patient has followed our recommendations to walk 20-30 minutes once or twice per day since the procedure. Physical exam demonstrates decrease in varicosities of the leg. Persistent varicosities are identified along the legs bilaterally. Review of the ultrasound performed the same day demonstrates occlusive thrombus extending throughout the treated vein(s), see separate report, consistent with a successful ablation. No thrombus extending into or beyond the saphenofemoral junction. The patient expressed a desire to proceed with treatment of remaining incompetent varicosities. The patient was informed that treatment was a process and would require several procedures/sessions. VEIN/ Facility EST LMTD IMPRESSION: 1. Successful ablation of the right saphenous vein(s). 2. Persistent varicose veins and lower extremity symptoms. PLAN: 1. Endovenous laser ablation of left small saphenous vein. Nurse notes, history and physical were reviewed and confirmed, see attached forms. The nurse was present throughout the physical exam and consultation Dictated by: Flo Ta M.D. on 05/16/2024 at 10:45 Approved by: Flo Ta M.D. on 05/16/2024 at 10:46
--- NOTE | 2024-05-16 10:36 | P.DS_ITS ---
Discharge Plan Discharge Disposition: Home, Self-Care Outpatient Diagnostics: VC Endovenous Ablation 1VeinLT (Routine) Timeframe: 2 Weeks Facility: [facility] - Location: Vein Center Ordered By: Flo Ta Follow Up Appointments: 05/23/24 Plan of Treatment: EVLT of left SSV EVLT Tumescent Anesthesia: 500 mL 0.9% NS with 20 mL 1% Lidocaine and 10 mL 8.4% NAHCO3 Buffered Local Anesthesia: 10 mL of 1% Lidocaine Buffered Print Language: Pashto Discharge Date/Time: 05/16/24 10:37
== END 2024-05-16 10:37 | disposition home or self-care (01) ==
PROVIDERS: PCP Radiology Diagnostic Radiology; Visit Provider Radiology Diagnostic Radiology
DX: I80.01 Phlebitis and thrombophlebitis of superficial vessels of right lower extremity (principal)
CPT/HCPCS: 93971; G0463

== ENCOUNTER 2024-05-23 08:26 | Outpatient (OUT) | payer OTHER, SELFPAY ==
--- NOTE | 2024-05-22 12:47 | V.VEINS.HP ---
Vital Signs 05/23/24 08:31 BP 136/87 BP Location Left Brachial BP Position Sitting BP Cuff Size Adult BP Source Automatic Cuff Respiration 18 Pulse 75 Pulse Source Monitor Pulse Oximetry (%) 95 Oxygen Delivery Method Room Air Comment The patient's blood pressure is elevated. Varicose Veins Patient in this day for EVLT of left SSV Flo Oshea MD personally performed the services described in this documentation, as scribed by Torres Man RN in my presence and it is both accurate and complete. Torres Oshea RN, am scribing for, and in the presence of, Dr. Flo Ta and in the presence of the patient. thigh: bilateral (symptoms left leg > right leg), knee: bilateral, calf: bilateral, ankle: bilateral and paz: bilateral aching, burning and cramping 9 10 years Worsened in recent months: Yes standing and sitting analgesics, elevating extremities and compression stockings Reports muscle spasms of leg, heaviness, limb pain, edema and leg edema History of lower extremity trauma: No Superficial thrombophlebitis: No Family history of varicose veins: no Has patient had previous lower extremity venous surgery: Yes Patient has previously received the following treatment(s) for lower extremity varicose veins: Reports laser therapy Does patient have a history of : yes Does patient intend to have future pregnancies: no Has patient had lower extremity venous scan with relux testing: No Support hose used: Yes Problems walking or doing physical activity: Yes How does it affect you: decreased asctivity secondary to pain Do you walk much: Yes Do you stand much: Yes Review of Systems ROS Narrative Flo Oshea MD personally performed the services described in this documentation, as scribed by Torres Man RN in my presence and it is both accurate and complete. Torres Oshea RN, am scribing for, and in the presence of, Dr. Flo Ta and in the presence of the patient. Status of ROS 10 or more systems reviewed and unremarkable except as noted in history and below Cardiovascular Reports: edema Integumentary/Breast Reports: itching, redness and changes in skin color Neurological Reports: weakness in extremities [facility] Medical History (Updated 04/04/24 @ 14:40 by Torres Man) Superficial thrombophlebitis of left leg ?I80.02 - Phlebitis and thrombophlebitis of superficial vessels of left lower extremity (ICD-10) Phlebitis of superficial vein of right lower extremity ?I80.01 - Phlebitis and thrombophlebitis of superficial vessels of right lower extremity (ICD-10) Obesity ?E66.9 - Obesity, unspecified (ICD-10) Asthma ?J45.909 - Unspecified asthma, uncomplicated (ICD-10) Pain due to varicose veins of both lower extremities ?I83.813 - Varicose veins of bilateral lower extremities with pain (ICD-10) Surgical History (Updated 05/23/24 @ 08:38 by Torres Man) Status post laser ablation of incompetent vein ?Z98.890 - Other specified postprocedural states (ICD-10) H/O tubal ligation ?Z98.51 - Tubal ligation status (ICD-10) History of bilateral knee replacement ?Z96.653 - Presence of artificial knee joint, bilateral (ICD-10) Status post laser ablation of incompetent vein ?Z98.890 - Other specified postprocedural states (ICD-10) Social History Little interest or pleasure in doing things: not at all Feeling down, depressed, or hopeless: not at all Meds Home Medications and Allergies Home Medications ?Medication ?Instructions ?Recorded ?Confirmed ?Type albuterol sulfate 90 mcg/actuation inhalation 03/02/24 History aerosol inhaler ammonium lactate 12 % topical cream applic topical 03/02/24 History celecoxib 50 mg capsule (Celebrex) 50 mg PO DAILY 04/04/24 04/04/24 History gabapentin 100 mg capsule 100 mg PO BID 04/04/24 04/04/24 History ropinirole 0.5 mg tablet 0.5 mg PO DAILY 04/04/24 04/04/24 History Allergies Allergy/AdvReac Type Severity Reaction Status Date / Time Penicillins AdvReac Severe Anaphylaxis Verified 12/12/23 17:11 Exam Narrative Exam Narrative: Flo Oshea MD personally performed the services described in this documentation, as scribed by Torres Man RN in my presence and it is both accurate and complete. ITorres RN, am scribing for, and in the presence of, Dr. Flo Ta and in the presence of the patient. Constitutional Documenting provider has reviewed patient's vital signs: yes Common normals: oriented x3 Nutritional appearance: overweight Cardio Peripheral pulses: posterior tibial pulses present and dorsalis pedis pulses present Extremity Common normals: normal capillary refill General: calf tenderness and edema Right lower extremity: lower leg Right lower leg: inspection and palpation Left lower extremity: lower leg Left lower leg: inspection and palpation Neuro Common normals: oriented x3 Assessment and Plan Assessment and Plan (1) Pain due to varicose veins of both lower extremities: Plan f/u evaluation with physician along with left leg limited u/s Flo Oshea MD personally performed the services described in this documentation, as scribed by Torres Man RN in my presence and it is both accurate and complete. ITorres RN, am scribing for, and in the presence of, Dr. Flo Ta and in the presence of the patient. Procedures Procedure Instructions Procedures Plan of care: Risks and benefits of the procedure were discussed at length and informed written consent was obtained.? Time-out completed for verification of correct patient, procedure and site.? Staff present during time-out: Torres Man, LAUREN,? Flo Ta MD, Ann Jack [facility], Time Out Time_09 Patient prepped and procedure performed in usual sterile fashion. Risk of injury related to use of Diode laser and/or laser devices__CR___ ? Serial number of laser used :? [id number] Control panel self test performed, electrical cords in good condition, floor is dry, basin of water available, fire extinguisher in close proximity_CR__ Polycarbonate goggles available and Laser warning signs outside of doors___CR__ Eye protection provided to patient and staff in room_CR___ Use of laser retardant drapes and dull blackened instruments as directed__CR___ Use of nonflammable prep solutions and use of saline soaked sponges to protect tissues as indicated _CR___ Length cm Laser operated by ___Dr. Ta Physician verbal confirmation laser locked in place__CR__ Laser start time (date and time) __05/23/2024@ Laser stop time(date and time) __05/23/2024@ Woo _8.0___ Average laser use _1310 Joules Average laser use___164 seconds Pulse continuous ___CR_? Pulse intermittent ___ Amount of Tumescent used _125cc Evaluated patient for signs and symptoms of electrical injury __CR___ ? Skin clear at insertion site __CR___ Patient tolerated procedure well.? Left leg Coban dressing applied to access site.? Applied Left thigh high leg compression stocking. Will return on 05/28/2024 for Left leg limited venous ultrasound and exam. IFlo MD personally performed the services described in this documentation, as scribed by Torres Man RN in my presence and it is both accurate and complete. I, Torres Man RN, am scribing for, and in the presence of, Dr. Flo Ta and in the presence of the patient.
--- NOTE | 2024-05-22 12:49 | P.DS_ITS ---
Discharge Plan Discharge Disposition: Home, Self-Care Outpatient Diagnostics: VC Facility EST LMTD (Routine) Timeframe: 2 Weeks Facility: [facility] - Location: [facility] Ordered By: Flo Ta VC EXT Venous LT Limited (Routine) Timeframe: 2 Weeks Facility: [facility] - Location: Vein Center Ordered By: Flo Ta Follow Up Appointments: 05/28/2024 Plan of Treatment: f/u evaluation with physician along with left leg limited u/s Print Language: Grenadian Discharge Date/Time: 05/23/24 08:41
[2024-05-23] MEDS: 0.9 % SODIUM CHLORIDE 500 ML, LIDOCAINE HCL 20 ML, SODIUM BICARBONATE 10 MEQ INJ (08:26)
--- NOTE | 2024-05-23 08:26 | VEIN_ITS ---
[address] [address] Patient Name: GEETA VANCE MRN: [id number] date: 1970 Sex: F Assigned Patient Location: Current Patient Location: Accession/Order Number: [id number] Exam Date: 05/23/2024 08:26 Report Date: 05/23/2024 09:45 At the request of: FLACO ARCOS Procedure: VC Endovenous Ablation 1VeinLT EXAMINATION: VC Endovenous Ablation 1VeinLT HISTORY: I83.813 - Varicose veins of bilateral lower extremities w... The risks and benefits of the procedure had been previously discussed, and were rediscussed at length. Informed written consent was obtained. Torres Man RN and Ann Berry RDMS assisted. Time out procedure was performed. The left lower extremity was prepared and draped in the usual sterile fashion to allow knee flexion in the sterile field. Duplex ultrasound probe was draped in a sterile cover, sterile transmission gel was used. Venous mapping was performed with the areas of dilation and large tributaries marked. The total length was 23 cm from the entry just above the ankle to 3 cm below the Saphenopopliteal junction. The diameter of the left small saphenous vein ranged from 9.5 mm. A 30 gauge needle and 1% buffered lidocaine was used to anesthetize the entry site. A 4 mm incision was made with a scalpel and the saphenous vein was entered percutaneously under direct ultrasound guidance with a micropuncture set, a single stick was successful in gaining access. A micro-guide wire was inserted and the needle removed. A micro-set including a dilator was inserted over the microwire and the needle and dilator were removed. A guide wire was inserted through the micro-set and guided through the saphenous vein to the saphenofemoral junction. The dilator was removed and an introducer sheath was inserted over the wire until the end of the sheath entered the saphenofemoral junction. The dilator and wire were removed and the 600 micron fiber was introduced and placed and positioned so that it extended beyond the sheath and was 3 cm distal to the saphenofemoral or saphenopopliteal junction. Final position of the fiber was determined by ultrasound guidance and duplex imaging. Tumescent anesthetic was delivered by ultrasound guidance. 125 cc of fluid was delivered along the entire course of the saphenous vein. The solution consisted of 1000 cc of normal saline with 40 mL of 1% lidocaine and 20 mL of sodium bicarbonate. A final positioning check was made. The energy source was turned on by means of the foot pedal and the fiber and sheath were withdrawn. The total number of Joules delivered was 1310. The laser was active for 164 seconds under continuous pulse, average laser use of 8 J. Laser start time: 9:23 AM Laser stop time: 9:26 AM Date: 05/23/2024. A duplex ultrasound revealed compressibility and flow at the saphenofemoral junction immediately after the procedure. Hemostasis at the access site was achieved. The skin incision of the saphenous vein was closed with a 4 x 4. A compression stocking was applied. Postop instructions were given. A follow up appointment was recommended and scheduled. The patient tolerated the procedure well. Electronically authenticated by: FLACO ARCOS Date: 05/23/2024 09:45
[2024-05-23] MEDS: LIDOCAINE HCL 1% 100 MG/10 ML MDV INJ (08:27)
[2024-05-23 08:31] VITALS: BP 136/87; PULSE 75; O2SAT 95
--- OUTSIDE RECORDS SUMMARY | 2024-05-23 08:40 | XMS_ITS | CCD ---
Author Organization [facility] Care Team Providers Care Tube Backer Name Role Phone RHEA Alvarado Attending Provider [facility], Services Primary Care Provider [phone] RHEA Alvarado Primary Care Provide r CARLI Villeda Attending Provider [phone] RHEA Alvarado Primary Care Provide r CARLI Villeda Attending Provider [phone] Pending Provider Unavailable Unavailable Unavailable Unavailable Unavailable [...] Attending Provider DO Lorrie Baig Referring Provider Dr. Acosta Schafer Attending Un available Pending, [...] [place], Dr. Acosta Tyson Attending Un available Myerholpaula, BLOCKER AND POL[employer]ER [employer]OLD WHEEL Elizabeth Hurley Primary Care Provide r Myersaige, BLOCKER AND POLISHER [employer] WHEEL Elizabeth K Attending Provider Sindy Davila Unavailable MARII Davila Attending Provider Tyler Jean Unavailable [phone] MyerRHEA moulton K Primary Care Provide r MARII Davila Attending Provider MyerPINKY moultonN Elizabeth K Attending Provider MyRHEA morales Attending Provider NO FAMILY, PHYSICIAN Primary Care Provider Unava ilable Myersaige, RHEA Johnson K Primary Care Provide r DO Lorrie Baig Referring Provider Adamowicz II, DO Krzysztof Prince Attending Provider Elizabeth Alvarado Admitting Unavailab le JustinaerElizabeth moulton Attending Unavailab le JustinaerElizabeth moulton Admitting Unavailab le JustinaerElizabeth moulton Attending Unavailab le JustinaerElizabeth moulton Primary Care Unavailab Lorrie Villalobos Referring Unavailable Elizabeth Alvarado Primary Care Unavailab le Adamowicz II, Krzysztof Prince Admitting Unavaila ble Adamowicz II, Krzysztof Prince Attending Unavaila ble Elizabeth Alvarado Admitting Unavailab le JustinaerElizabeth moulton Attending Unavailab le Myerholtz, Elizabeth K Admitting Unavailab Elizabeth Coy Attending Unavailab arnav NO FAMILY, PHYSICIAN Primary Care Unavailable Allergies Allergy Classification Reported Allergen(s) Allergy Type Date of Onset Reaction(s) Facility NSAIDs (1 source) Ibuprofen Drug Allergy 4 Unknown Reaction [facility] Penicillins (antibiotic) (2 sources) Penicillin Drug Allergy 4 [facility] (20 sources) Penicillins; Translations: [Penicillins] Allergy to substance 8 Anaphylaxis [facility] (6 sources) Ibuprofen; Translations: [ibuprofen] Drug Allergy 3 Unknown Reaction [facility] (3 sources) Penicillin V Drug Allergy 3 [facility] (1 source) Penicillin Drug Allergy 4 [facility] Repository Medications Current Medications Medication Drug Class(es) Dates Sig (Normalized) Sig (Original) acetaminophen 325 mg oral tablet (2 sources) Start: 07-01-2022 acetaminophen (TYLENOL) tablet 650 mg Start: 07-01-2022 End: 07-01-2022 acetaminophen (TYLENOL) tabl et 1,000 mg [id number] 200 actuat albuterol 0.09 mg/actuat metered dose [...] Active docusate sodium 50 mg / sennosides, longterm 8.6 mg oral tablet (2 sources) Start: [...] (1 source) Corticosteroid, beta2-Adrenergic Agonist Star t: 1011-11 take 2 puff(s) by inhalation at bedtime [...] tablet (9 sources) Antihistamine Star t: 07-25 take 50 mg by mouth once daily [...] Hfa Aerosol Inhaler (6 sources) Start: 08-14-19 take 1 puff(s) by inhalation every twelve [...] disintegrating tablet 4 mg polyethylene glycol 3350 [id number] mg powder for oral solution (1 source) [...] on Renee 07/01/22 at 1545, Until Discontinued Do not crush or break. Start: 12-03-2021 take 1 capsule by [facility] once daily venlafaxine (EFFEXOR XR) 75 [...] dose on Renee 07/01/22 at 2000, Until Discontinued Substituted for [...] Problem Date Documented Da te Episodic/Chronic Asthma (6 sources) Uncomplicated moderate persistent asthma; Translations: [Moderate persistent asthma, uncomplicated] Chronic Diabetes mellitus without complication (1 source) [...] unicondylar knee replacement] Onset: 05-18-2022 Episodic Other non-traumatic joint disorders (12 sources) [...] ALT [Catalytic activity/Vol] 33 U/L Normal 7-52 [facility] Comment on above: Performed By: #### F ER, CMP, CBC, FE and TIBC #### [facility] [address] [place], [place] [id number] [facility] #### TOMA SERUM, SPE, KAPPA #### [facility] , Albumin [Mass/volume] in Ser um or PlasmaOrdered By: Krzysztof Salazar on 09-20-2023 Albumin [Mass/Vol] 3.8 g/dL Normal 2.9-4.4 [facility] Comment on above: Performed By: #### F ER, CMP, CBC, FE and TIBC #### [facility] [address] [place] [address] #### TOMA SERUM, SPE, KAPPA #### [facility] , Albumin [Mass/volume] in Ser um or Plasma by Bromocresol green (BCG) dye binding methoOrdered By: Krzysztof Salazar on 09-20-2023 Albumin BCG dye [Mass/Vol] 4.2 g/dL 3.5-5.7 [facility] Alkaline phosphatase [Enzyma tic activity/volume] in Serum or PlasmaOrdered By: Krzysztof Salazar on 09-20-2023 ALP [Catalytic activity/Vol] 79 U/L Normal 34-104 [facility] Comment on above: Performed By: #### F ER, CMP, CBC, FE and TIBC #### [facility] [address] [place] [address] #### TOMA SERUM, SPE, KAPPA #### [facility] , Aspartate aminotransferase [ Enzymatic activity/volume] in Serum or PlasmaOrdered By: Krzysztof Salazar on 09-20-2023 AST [Catalytic activity/Vol] 30 U/L Normal 13-39 [facility] Comment on above: Performed By: #### F ER, CMP, CBC, FE and TIBC #### [facility] [address] [place] [address] #### TOMA SERUM, SPE, KAPPA #### [facility] , Automated basophil %Ordered By: Krzysztof Salazar on 09-20-2023 Basophils/100 WBC (Bld) 0.5 % Normal . [facility] Comment on above: Performed By: #### F ER, CMP, CBC, FE and TIBC #### [facility] [address] [place] [address] #### TOMA SERUM, SPE, KAPPA #### [facility] , Automated basophil countOrde red By: Krzysztof Salazar on 09-20-2023 Basophils (Bld) [#/Vol] 0.0 10*3/uL Normal 0.0-0.2 [facility] Comment on above: Result Comment: PERF ORMED BY: [place] [address] PATHOLOGIST FRUIT COORDINATOR MELODY ELAM M.D. Performed By: #### F ER, CMP, CBC, FE and TIBC #### [address] #### TOMA SERUM, SPE, KAPPA #### [facility] , Automated blood monocyte cou ntOrdered By: Krzysztof Salazar on 09-20-2023 Monocytes (Bld) [#/Vol] 0.7 10*3/uL Normal 0.0-0.8 [facility] Comment on above: Performed By: #### F ER, CMP, CBC, FE and TIBC #### [address] #### TOMA SERUM, SPE, KAPPA #### [facility] , Automated eosinophil %Ordere d By: Krzysztof Salazar on 09-20-2023 Eosinophils/100 WBC (Bld) 2.6 % Normal . [facility] Comment on above: Performed By: #### F ER, CMP, CBC, FE and TIBC #### [place] [address] [place] #### TOMA SERUM, SPE, KAPPA #### [facility] , Automated eosinophil countOr dered By: Krzysztof Salazar on 09-20-2023 Eosinophils (Bld) [#/Vol] 0.2 10*3/uL Normal 0.0-0.45 [facility] Comment on above: Performed By: #### F ER, CMP, CBC, FE and TIBC #### [facility] [address] [place] [address] [place] #### TOMA SERUM, SPE, KAPPA #### [facility] , Automated monocyte %Ordered By: Krzysztof Salazar on 09-20-2023 Monocytes/100 WBC (Bld) 7.9 % Normal . [facility] Comment on above: Performed By: #### F ER, CMP, CBC, FE and TIBC #### [place] [address] [place] #### TOMA SERUM, SPE, KAPPA #### [facility] , Automated neutrophil %Ordere d By: Krzysztof Salazar on 09-20-2023 Neutrophils/100 WBC (Bld) 64.3 % Normal . [facility] Comment on above: Performed By: #### F ER, CMP, CBC, FE and TIBC #### [address] #### TOMA SERUM, SPE, KAPPA #### [facility] , Bilirubin.total [Mass/volume ] in Serum or PlasmaOrdered By: Krzysztof Salazar on 09-20-2023 Bilirubin [Mass/Vol] 0.6 mg/dL Normal 0.3-1.[address] [facility] Comment on above: Performed By: #### F ER, CMP, CBC, FE and TIBC #### [address] #### TOMA SERUM, SPE, KAPPA #### [facility] , Calcium [Mass/volume] in Ser um or PlasmaOrdered By: Krzysztof Salazar on 09-20-2023 Calcium [Mass/Vol] 9.7 mg/dL Normal 8.6-10.3 [facility] Comment on above: Performed By: #### F ER, CMP, CBC, FE and TIBC #### [place] [address] [place] #### TOMA SERUM, SPE, KAPPA #### [facility] , Carbon dioxide, total [Moles /volume] in Serum or PlasmaOrdered By: Krzysztof Salazar on 09-20-2023 CO2 [Moles/Vol] 32.4 mmol/L High 21.0-31.0 [facility] Comment on above: Performed By: #### F ER, CMP, CBC, FE and TIBC #### [place] [address] [place] #### TOMA SERUM, SPE, KAPPA #### [facility] , Chloride [Moles/volume] in S hugo or PlasmaOrdered By: Krzysztof Salazar on 09-20-2023 Chloride [Moles/Vol] 97 mmol/L Low 98-[address] [facility] Comment on above: Performed By: #### F ER, CMP, CBC, FE and TIBC #### [facility] [address] [place] [address] [place] #### TOMA SERUM, SPE, KAPPA #### [facility] , Complete Blood Count Auto Di ffon 09-20-2023 Mean Corpuscular HGB Conc 32.7 g/dL Normal 32.0-35.0 [facility] Comment on above: Performed By: #### F ER, CMP, CBC, FE and TIBC #### [facility] [address] [place] [address] #### TOMA SERUM, SPE, KAPPA #### [facility] , NRBC% 0.1 /100{WBC} Normal 0-0.5 [facility] Comment on above: Performed By: #### F ER, CMP, CBC, FE and TIBC #### [facility] [address] [place] [address] [place] #### TOMA SERUM, SPE, KAPPA #### [facility] , Comprehensive Metabolic Pane gretel 09-20-2023 Albumin [Mass/Vol] 4.2 g/dL Normal 3.5-5.7 [facility] Comment on above: Performed By: #### F ER, CMP, CBC, FE and TIBC #### [facility] [address] [place] [address] [place] #### TOMA SERUM, SPE, KAPPA #### [facility] , Creatinine Clr Calc Pharmacy 143.32 Normal [facility] Comment on above: Performed By: #### F ER, CMP, CBC, FE and TIBC #### [facility] [address] [place] [address] [place] #### TOMA SERUM, SPE, KAPPA #### [facility] , GFR/1.73 sq M.predicted MDRD (S/P/Bld) [Vol rate/Area] mL/min/{1.73_m2} Normal [facility] Comment on above: Performed By: #### F ER, CMP, CBC, FE and TIBC #### [place] [address] [place] #### TOMA SERUM, SPE, KAPPA #### [facility] , Creatinine [Mass/volume] in Serum or PlasmaOrdered By: Krzysztof Salazar on 09-20-2023 Creatinine [Mass/Vol] 0.60 mg/dL Normal 0.60-1.20 [facility] Comment on above: Performed By: #### F ER, CMP, CBC, FE and TIBC #### [address] #### TOMA SERUM, SPE, KAPPA #### [facility] , Erythrocyte distribution wid th [Ratio] by Automated countOrdered By: Krzysztof Salazar on 09-20-2023 Erythrocyte distribution width (RBC) [Ratio] 16.7 % High 11.9-15.3 [facility] Comment on above: Performed By: #### F ER, CMP, CBC, FE and TIBC #### [place] [address] [place] #### TOMA SERUM, SPE, KAPPA #### [facility] , Erythrocytes [#/volume] in B lood by Automated countOrdered By: Krzysztof Salazar on 09-20-2023 RBC (Bld) [#/Vol] 4.86 10*6/uL Normal 3.60-5.00 [facility] Comment on above: Performed By: #### F ER, CMP, CBC, FE and TIBC #### [place] [address] [place] #### TOMA SERUM, SPE, KAPPA #### [facility] , Ferritin [Mass/volume] in Se rum or PlasmaOrdered By: Krzysztof Salazar on 09-20-2023 Ferritin [Mass/Vol] 92.7 ng/mL Normal 11.0-306.8 [facility] Comment on above: Result Comment: PERF ORMED BY: [place] [address] PATHOLOGIST FRUIT COORDINATOR MELODY ELAM M.D. Performed By: #### F ER, CMP, CBC, FE and TIBC #### [address] #### TOMA SERUM, SPE, KAPPA #### [facility] , Free K+L LT Chains, Qn, Son 09-20-2023 Free Grawn Light Chains, S 30.9 mg/L High 3.3-19.4 [facility] Comment on above: Performed By: #### F ER, CMP, CBC, FE and TIBC #### [facility] [address] [place] [address] #### TOMA SERUM, SPE, KAPPA #### [facility] , Free Lambda Light Chains, S 26.4 mg/L High 5.7-26.3 [facility] Comment on above: Performed By: #### F ER, CMP, CBC, FE and TIBC #### [place] [address] [place] #### TOMA SERUM, SPE, KAPPA #### [facility] , Grawn/Lambda Ratio, S 1.17 Normal 0.26-1.65 [facility] Comment on above: Result Comment: Perf ormed at: - [facility] [address] [id number] Retail Marketing Specialist: Jeyson Duncan PhD, Phone: [phone] PERFORMED BY: [place] [address] PATHOLOGIST FRUIT COORDINATOR MELODY ELAM M.D. Performed By: #### F ER, CMP, CBC, FE and TIBC #### [address] #### TOMA SERUM, SPE, KAPPA #### [facility] , Glucose [Mass/volume] in Ser um or PlasmaOrdered By: Krzysztof Salazar on 09-20-2023 Glucose [Mass/Vol] 123 mg/dL High 70-100 [facility] Comment on above: ADA recommended refe rence rangeRandom Glucose Reference Range is dependent on time and content of last meal. Glucose of more than 200 mg/dL in a nonstressed, ambulatory subject supports the diagnosis of Diabetes Mellitus. Result Comment: [place] om Glucose Reference Range is dependent on time and content of last meal. Glucose of more than 200 mg/dL in a nonstressed, ambulatory subject supports the diagnosis of Diabetes Mellitus. ADA recommended reference range Performed By: #### F ER, CMP, CBC, FE and TIBC #### [address] #### TOMA SERUM, SPE, KAPPA #### [facility] , Hematocrit [Volume Fraction] of Blood by Automated countOrdered By: Krzysztof Salazar on 09-20-2023 Hematocrit (Bld) [Volume fraction] 38.3 % Normal 34.0-46.4 [facility] Comment on above: Performed By: #### F ER, CMP, CBC, FE and TIBC #### [place] [address] [place] #### TOMA SERUM, SPE, KAPPA #### [facility] , Hemoglobin [Mass/volume] in BloodOrdered By: Krzysztof Salazar on 09-20-2023 Hemoglobin (Bld) [Mass/Vol] 12.5 g/dL Normal 11.8-15.4 [facility] Comment on above: Performed By: #### F ER, CMP, CBC, FE and TIBC #### [address] #### TOMA SERUM, SPE, KAPPA #### [facility] , IgA [Mass/volume] in Serum o r PlasmaOrdered By: Krzysztof Salazar on 09-20-2023 IgA [Mass/Vol] 409 mg/dL 87-352 [facility] IgG [Mass/volume] in Serum o r PlasmaOrdered By: Krzysztof Salazar on 09-20-2023 IgG [Mass/Vol] 1704 mg/dL [phone] [facility] IgM [Mass/volume] in Serum o r PlasmaOrdered By: Krzysztof Salazar on 09-20-2023 IgM [Mass/Vol] 122 mg/dL 26-217 [facility] Comment on above: Performed at: [employer] [facility] [address] [id number] Director: Jeyson Duncan PhD, Phone: [phone] Immunofixation,Serumon 09-19 Immunofixation, Serum Normal . [facility] Comment on above: Result Comment: No m onoclonality detected. Performed By: #### F ER, CMP, CBC, FE and TIBC #### [facility] [address] [place] [address] #### TOMA SERUM, SPE, KAPPA #### [facility] , Immunoglobulin A, Serum 409 mg/dL High 87-352 [facility] Comment on above: Performed By: #### F ER, CMP, CBC, FE and TIBC #### [facility] [address] [place] [address] [place] #### TOMA SERUM, SPE, KAPPA #### [facility] , Immunoglobulin G 1704 mg/dL High 586-1602 [facility] Comment on above: Performed By: #### F ER, CMP, CBC, FE and TIBC #### [facility] [address] [place] [address] [place] #### TOMA SERUM, SPE, KAPPA #### [facility] , Immunoglobulin M, Serum 122 mg/dL Normal -217 [facility] Comment on above: Result Comment: Perf ormed at: [employer] [facility] [address] [place], [place] [id number] Retail Marketing Specialist: Jeyson Duncan PhD, Phone: [phone] Performed By: #### F ER, CMP, CBC, FE and TIBC #### [facility] [address] [place] [address] #### TOMA SERUM, SPE, KAPPA #### [facility] , Immunoglobulin light chains. kappa.free [Mass/volume] in SerumOrdered By: Krzysztof Salazar on 09-20-2023 Immunoglobulin light chains.kappa.free (S) [Mass/Vol] 30.9 mg/L 3.3-19.4 [facility] Immunoglobulin light chains. kappa.free/Immunoglobulin light chains.lambda.free [MassOrdered By: Krzysztof Salazar on 09-20-2023 Immunoglobulin light chains.kappa.free/Immuno globulin light chains.lambda.free (S) [Mass ratio] 1.17 0.26-1.65 [facility] Comment on above: Performed at: [address] [id number] Director: Jeyson Duncan PhD, Phone: [phone] Immunoglobulin light chains. lambda.free [Mass/volume] in Serum or PlasmaOrdered By: Krzysztof Salazar on 09-20-2023 Immunoglobulin light chains.lambda.free [Mass/Vol] 26.4 mg/L 5.7-26.3 [facility] Iron [Mass/volume] in Serum or PlasmaOrdered By: Krzysztof Salazar on 09-20-2023 Iron [Mass/Vol] 74 ug/dL Normal 50-212 [facility] Comment on above: Performed By: #### F ER, CMP, CBC, FE and TIBC #### [facility] [address] [place] [address] [place] #### TOMA SERUM, SPE, KAPPA #### [facility] , Iron and TIBC Profileon 08-24 % Iron Saturation 21.5 % Normal 20-50 [facility] Comment on above: Performed By: #### F ER, CMP, CBC, FE and TIBC #### [facility] [address] [place] [address] [place] #### TOMA SERUM, SPE, KAPPA #### [facility] , Total Iron Binding Capacity 344 ug/dL Normal 255-450 [facility] Comment on above: Performed By: #### F ER, CMP, CBC, FE and TIBC #### [facility] [address] [place] [address] [place] #### TOMA SERUM, SPE, KAPPA #### [facility] , Iron binding capacity [Mass/ volume] in Serum or PlasmaOrdered By: Krzysztof Salazar on 09-20-2023 Iron binding capacity [Mass/Vol] 344 ug/dL 255-450 [facility] Iron saturation [Mass Fracti on] in Serum or PlasmaOrdered By: Krzysztof Salazar on 09-20-2023 Iron saturation [Mass fraction] 21.5 % 20-50 [facility] Leukocytes [#/volume] correc silverio for nucleated erythrocytes in Blood by Automated counOrdered By: Krzysztof Salazar on 09-20-2023 WBC corrected for nucl RBC Auto (Bld) [#/Vol] 8.5 10*3/uL 3.8-11.6 [facility] Leukocytes [#/volume] in Blo od by Automated countOrdered By: Krzysztof Salazar on 09-20-2023 WBC (Bld) [#/Vol] 8.5 10*3/uL Normal 3.8-11.6 [facility] Comment on above: Performed By: #### F ER, CMP, CBC, FE and TIBC #### [facility] [address] [place] [address] [place] #### TOMA SERUM, SPE, KAPPA #### [facility] , Lymphocytes [#/volume] in Bl ood by Automated countOrdered By: Krzysztof Salazar on 09-20-2023 Lymphocytes (Bld) [#/Vol] 2.1 10*3/uL Normal 1.00-4.8 [facility] Comment on above: Performed By: #### F ER, CMP, CBC, FE and TIBC #### [place] [address] [place] #### TOMA SERUM, SPE, KAPPA #### [facility] , Lymphocytes/100 leukocytes i n Blood by Automated countOrdered By: Krzysztof Salazar on 09-20-2023 Lymphocytes/100 WBC (Bld) 24.7 % Normal . [facility] Comment on above: Performed By: #### F ER, CMP, CBC, FE and TIBC #### [place] [address] [place] #### TOMA SERUM, SPE, KAPPA #### [facility] , MCH [Entitic mass] by Automa silverio countOrdered By: Krzysztof Salazar on 09-20-2023 MCH (RBC) [Entitic mass] 25.8 pg Normal 24.7-34.3 [facility] Comment on above: Performed By: #### F ER, CMP, CBC, FE and TIBC #### [address] #### TOMA SERUM, SPE, KAPPA #### [facility] , MCHC Auto (RBC) [Mass/Vol]Or dered By: Krzysztof Salazar on 09-20-2023 MCHC (RBC) [Mass/Vol] 32.7 g/dL 32.0-35.0 [facility] MCV [Entitic volume] by Auto mated countOrdered By: Krzysztof Salazar on 09-20-2023 MCV (RBC) [Entitic vol] 78.7 fL Low 80-100 [facility] Comment on above: Performed By: #### F ER, CMP, CBC, FE and TIBC #### [place] [address] [place] #### TOMA SERUM, SPE, KAPPA #### [facility] , Neutrophils [#/volume] in Bl ood by Automated countOrdered By: Krzysztof Salazar on 09-20-2023 Neutrophils (Bld) [#/Vol] 5.5 10*3/uL Normal 1.8-7.7 [facility] Comment on above: Performed By: #### F ER, CMP, CBC, FE and TIBC #### [facility] [address] [place] [address] [place] #### TOMA SERUM, SPE, KAPPA #### [facility] , No Panel InformationOrdered By: Krzysztof Salazar on 09-20-2023 Estimated GFR (CKD-EPI) > 60.0 mL/Min [facility] Creatinine Clearance (Chem 143.32 [facility] Protein Electrophoresis M-Antwan Not observed g/dL Not Observed [facility] Protein Electrophoresis Note See comment . [facility] Comment on above: Protein electrophore sis scan will follow via computer,mail, or account representative delivery. Serum Immunofixation See comment . [facility] Comment on above: No monoclonality det ected. Nucleated erythrocytes [Pres ence] in Blood by Automated countOrdered By: Krzysztof Salazar on 09-20-2023 Nucleated RBC Auto Ql (Bld) 0.1 /100{WBC} 0-0.5 [facility] Platelet mean volume [Entiti c volume] in Blood by Automated countOrdered By: Krzysztof Salazar on 09-20-2023 Platelet mean volume (Bld) [Entitic vol] 8.8 fL Normal 6.3-10.7 [facility] Comment on above: Performed By: #### F ER, CMP, CBC, FE and TIBC #### [facility] [address] [place] [address] [place] #### TOMA SERUM, SPE, KAPPA #### [facility] , Platelets [#/volume] in Bloo d by Automated countOrdered By: Krzysztof Salazar on 09-20-2023 Platelets (Bld) [#/Vol] 271 10*3/uL Normal 150-450 [facility] Comment on above: Performed By: #### F ER, CMP, CBC, FE and TIBC #### [facility] [address] [place] [address] [place] #### TOMA SERUM, SPE, KAPPA #### [facility] , Potassium [Moles/volume] in Serum or PlasmaOrdered By: Krzysztof Salazar on 09-20-2023 Potassium [Moles/Vol] 4.4 mmol/L Normal 3.5-5.1 [facility] Comment on above: Performed By: #### F ER, CMP, CBC, FE and TIBC #### [place] [address] [place] #### TOMA SERUM, SPE, KAPPA #### [facility] , Protein Electrophoresis, Ser umon 09-20-2023 Xjehm-[id number] 0.3 g/dL Normal 0.0-0.4 [facility] Comment on above: Performed By: #### F ER, CMP, CBC, FE and TIBC #### [address] #### TOMA SERUM, SPE, KAPPA #### [facility] , Jprbs-5-Zrjqicrk 0.8 g/dL Normal 0.4-1.0 [facility] Comment on above: Performed By: #### F ER, CMP, CBC, FE and TIBC #### [address] #### TOMA SERUM, SPE, KAPPA #### [facility] , Beta Globulin 1.2 g/dL Normal 0.7-1.3 [facility] Comment on above: Performed By: #### F ER, CMP, CBC, FE and TIBC #### [place] [address] [place] #### TOMA SERUM, SPE, KAPPA #### [facility] , Gamma Globulin 1.8 g/dL Normal 0.4-1.8 [facility] Comment on above: Performed By: #### F ER, CMP, CBC, FE and TIBC #### [place] [address] [place] #### TOMA SERUM, SPE, KAPPA #### [facility] , M-Antwan Not Observed Normal Not Observed [facility] Comment on above: Performed By: #### F ER, CMP, CBC, FE and TIBC #### [place] [address] [place] #### TOMA SERUM, SPE, KAPPA #### [facility] , SPE-Note Normal . The [facility] Comment on above: Result Comment: Prot ein electrophoresis scan will follow via computer, mail, or account representative delivery. Performed By: #### F ER, CMP, CBC, FE and TIBC #### [address] #### TOMA SERUM, SPE, KAPPA #### [facility] , Protein [Mass/volume] in Ser um or PlasmaOrdered By: Krzysztof Salazar on 09-20-2023 Protein [Mass/Vol] 7.7 g/dL Normal 6.4-8.9 [facility] Comment on above: Performed By: #### F ER, CMP, CBC, FE and TIBC #### [place] [address] [place] #### TOMA SERUM, SPE, KAPPA #### [facility] , Protein [Mass/Vol] 7.8 g/dL Normal 6.0-8.5 [facility] Comment on above: Performed By: #### F ER, CMP, CBC, FE and TIBC #### [place] [address] [place] #### TOMA SERUM, SPE, KAPPA #### [facility] , Serum globulin measurement ( mass/volume)Ordered By: Krzysztof Salazar on 09-20-2023 Globulin (S) [Mass/Vol] 4.0 g/dL High 2.2-3.9 [facility] Comment on above: Performed By: #### F ER, CMP, CBC, FE and TIBC #### [place] [address] [place] #### TOMA SERUM, SPE, KAPPA #### [facility] , Serum globulin measurement b y calculation (mass/volume)Ordered By: Krzysztof Salazar on 09-20-2023 Globulin (S) [Mass/Vol] 3.5 g/dL Normal [facility] Comment on above: Performed By: #### F ER, CMP, CBC, FE and TIBC #### [facility] [address] [place] [address] [place] #### TOMA SERUM, SPE, KAPPA #### [facility] , Serum or plasma albumin/glob ulin mass ratioOrdered By: Krzysztof Salazar on 09-20-2023 Albumin/Globulin [Mass ratio] 1.2 {ratio} Normal [facility] Comment on above: Performed By: #### F ER, CMP, CBC, FE and TIBC #### [facility] [address] [place] [address] [place] #### TOMA SERUM, SPE, KAPPA #### [facility] , Albumin/Globulin [Mass ratio] 1.0 {ratio} Normal 0.7-1.7 [facility] Comment on above: Performed By: #### F ER, CMP, CBC, FE and TIBC #### [facility] [address] [place] [address] [place] #### TOMA SERUM, SPE, KAPPA #### [facility] , Serum or plasma alpha 1 glob ulin measurement by electrophoresis (mass/volume)Ordered By: Krzysztof Salazar on 09-20-2023 Alpha 1 globulin Elph [Mass/Vol] 0.3 g/dL 0.0-0.4 [facility] Serum or plasma alpha 2 glob ulin measurement by electrophoresis (mass/volume)Ordered By: Krzysztof Salazar on 09-20-2023 Alpha 2 globulin Elph [Mass/Vol] 0.8 g/dL 0.4-1.0 [facility] Serum or plasma anion gap de terminationOrdered By: Krzysztof Salazar on 09-20-2023 Anion gap [Moles/Vol] 11.0 mmol/L Normal 6.0-15.0 [facility] Comment on above: Performed By: #### F ER, CMP, CBC, FE and TIBC #### [facility] [address] [place] [address] #### TOMA SERUM, SPE, KAPPA #### [facility] , Serum or plasma beta globuli n measurement by electrophoresis (mass/volume)Ordered By: Krzysztof Salazar on 09-20-2023 Beta globulin Elph [Mass/Vol] 1.2 g/dL 0.7-1.3 [facility] Serum or plasma gamma globul in measurement by electrophoresis (mass/volume)Ordered By: Krzysztof Salazar on 09-20-2023 Gamma globulin Elph [Mass/Vol] 1.8 g/dL 0.4-1.8 [facility] Sodium [Moles/volume] in Ser um or PlasmaOrdered By: Krzysztof Salazar on 09-20-2023 Sodium [Moles/Vol] 136 mmol/L Normal 136-145 [facility] Comment on above: Performed By: #### F ER, CMP, CBC, FE and TIBC #### [place] [address] [place] #### TOMA SERUM, SPE, KAPPA #### [facility] , Transferrin [Mass/volume] in Serum or PlasmaOrdered By: Krzysztof Salazar on 09-20-2023 Transferrin [Mass/Vol] 246 mg/dL Normal 203-362 [facility] Comment on above: Performed By: #### F ER, CMP, CBC, FE and TIBC #### [facility] [address] [place] [address] #### TOMA SERUM, SPE, KAPPA #### [facility] , Urea nitrogen [Mass/volume] in Serum or PlasmaOrdered By: Krzysztof Salazar on 09-20-2023 Urea nitrogen [Mass/Vol] 16 mg/dL Normal 7-25 [facility] Comment on above: Performed By: #### F ER, CMP, CBC, FE and TIBC #### [facility] [address] [place] [id number] [place] #### TOMA SERUM, SPE, KAPPA #### [facility] , US pelvic completeon [address] [facility] [place] [address] [id number] Ultrasound Report Signed Patient: Geeta Shelton MR#: [id number] : 1970 Acct:[id number] Age/Sex: 53 / F ADM Date: 09/07/23 Loc: Room: Type: [facility] Attending Dr: Elizabeth Alvarado APRN, NP-C Ordering Provider: Elizabeth Alvarado APRN, CNP Date of Service: 09/07/23 US/US transvaginal: Abnormal vaginal bleeding ([id number]) US/US pelvic complete: Abnormal vaginal bleeding Copies [...] abnormality is seen. Impression dictated by: Jesus Dvais Jr., D.O.09/07/2023 2:39 PM Dictation Location: [place] [address] Tech: Jessica Sinclairvolodymyr Transcribed By: SEJAL 09/07/23 9924 Dictated By: Jesus Davis Jr, DO 09/07/23 1437 Signed By: 09/07/23 1439 Normal [facility] Alanine aminotransferase [En zymatic activity/volume] in Serum or PlasmaOrdered By: Elizabeth Alvarado on 08-24-2023 ALT [Catalytic activity/Vol] 28 U/L Normal 7-52 [facility] Comment on above: Order Comment: Reaso n for Exam Type 2 diabetes mellitus without complication, without long- Performed By: #### F ER, CMP, CBC, FE and TIBC #### [facility] [address] [place] [address] #### TOMA SERUM, SPE, KAPPA #### [facility] , Albumin [Mass/volume] in Ser um or Plasma by Bromocresol green (BCG) dye binding methoOrdered By: Elizabeth Alvarado on 08-24-2023 Albumin BCG dye [Mass/Vol] 4.3 g/dL 3.5-5.7 [facility] Alkaline phosphatase [Enzyma tic activity/volume] in Serum or PlasmaOrdered By: Elizabeth Alvarado on 08-24-2023 ALP [Catalytic activity/Vol] 86 U/L Normal 34-104 [facility] Comment on above: Order Comment: Reaso n for Exam Type 2 diabetes mellitus without complication, without long- Performed By: #### F ER, CMP, CBC, FE and TIBC #### [facility] [address] [place] [address] [place] #### TOMA SERUM, SPE, KAPPA #### [facility] , Aspartate aminotransferase [ Enzymatic activity/volume] in Serum or PlasmaOrdered By: Elizabeth Alvarado on 08-24-2023 AST [Catalytic activity/Vol] 28 U/L Normal 13-39 [facility] Comment on above: Order Comment: Reaso n for Exam Type 2 diabetes mellitus without complication, without long- Performed By: #### F ER, CMP, CBC, FE and TIBC #### [facility] [address] [place] [address] [place] #### TOMA SERUM, SPE, KAPPA #### [facility] , Automated basophil %Ordered By: Elizabeth Alvarado on 08-24-2023 Basophils/100 WBC (Bld) 0.7 % Normal . [facility] Comment on above: Order Comment: Reaso n for Exam Type 2 diabetes mellitus without complication, without long- Performed By: #### T SH3 wRFLX, LIPID, CBC, CMP #### [facility] [address] Automated basophil countOrde red By: Elizabeth Alvarado on 08-24-2023 Basophils (Bld) [#/Vol] 0.1 10*3/uL Normal 0.0-0.2 [facility] Comment on above: Order Comment: Reaso n for Exam Type 2 diabetes mellitus without complication, without long- Result Comment: PERF ORMED BY: [place] [address] PATHOLOGIST FRUIT COORDINATOR MELODY ELAM M.D. Performed By: #### T SH3 wRFLX, LIPID, CBC, CMP #### [address] Automated blood monocyte cou ntOrdered By: Elizabeth Alvarado on 08-24-2023 Monocytes (Bld) [#/Vol] 0.8 10*3/uL Normal 0.0-0.8 [facility] Comment on above: Order Comment: Reaso n for Exam Type 2 diabetes mellitus without complication, without long- Performed By: #### T SH3 wRFLX, LIPID, CBC, CMP #### [address] Automated eosinophil %Ordere d By: Elizabeth Alvarado on 08-24-2023 Eosinophils/100 WBC (Bld) 3.3 % Normal . [facility] Comment on above: Order Comment: Reaso n for Exam Type 2 diabetes mellitus without complication, without long- Performed By: #### T SH3 wRFLX, LIPID, CBC, CMP #### [address] Automated eosinophil countOr dered By: Elizabeth Alvarado on 08-24-2023 Eosinophils (Bld) [#/Vol] 0.3 10*3/uL Normal 0.0-0.45 [facility] Comment on above: Order Comment: Reaso n for Exam Type 2 diabetes mellitus without complication, without long- Performed By: #### T SH3 wRFLX, LIPID, CBC, CMP #### [facility] [address] Automated monocyte %Ordered By: Elizabeth Alvarado on 08-24-2023 Monocytes/100 WBC (Bld) 8.1 % Normal . [facility] Comment on above: Order Comment: Reaso n for Exam Type 2 diabetes mellitus without complication, without long- Performed By: #### T SH3 wRFLX, LIPID, CBC, CMP #### [facility] [address] Automated neutrophil %Ordere d By: Elizabeth Alvarado on 08-24-2023 Neutrophils/100 WBC (Bld) 62.4 % Normal . [facility] Comment on above: Order Comment: Reaso n for Exam Type 2 diabetes mellitus without complication, without long- Performed By: #### T SH3 wRFLX, LIPID, CBC, CMP #### [facility] [address] [place] [address] Bilirubin.total [Mass/volume ] in Serum or PlasmaOrdered By: Elizabeth Alvarado on 08-24-2023 Bilirubin [Mass/Vol] 0.4 mg/dL Normal 0.3-1.[address] [facility] Comment on above: Order Comment: Reaso n for Exam Type 2 diabetes mellitus without complication, without long- Performed By: #### F ER, CMP, CBC, FE and TIBC #### [facility] [address] [place] [address] [place] #### TOMA SERUM, SPE, KAPPA #### [facility] , Calcium [Mass/volume] in Ser um or PlasmaOrdered By: Elizabeth Alvarado on 08-24-2023 Calcium [Mass/Vol] 9.4 mg/dL Normal 8.6-10.3 [facility] Comment on above: Order Comment: Reaso n for Exam Type 2 diabetes mellitus without complication, without long- Performed By: #### F ER, CMP, CBC, FE and TIBC #### [facility] [address] [place] [address] [place] #### TOMA SERUM, SPE, KAPPA #### [facility] , Carbon dioxide, total [Moles /volume] in Serum or PlasmaOrdered By: Elizabeth Alvarado on 08-24-2023 CO2 [Moles/Vol] 29.2 mmol/L Normal 21.0-31.0 [facility] Comment on above: Order Comment: Reaso n for Exam Type 2 diabetes mellitus without complication, without long- Performed By: #### F ER, CMP, CBC, FE and TIBC #### [facility] [address] [place] [address] #### TOMA SERUM, SPE, KAPPA #### [facility] , Chloride [Moles/volume] in S hugo or PlasmaOrdered By: Elizabeth Alvarado on 08-24-2023 Chloride [Moles/Vol] 96 mmol/L Low 98-[address] [facility] Comment on above: Order Comment: Reaso n for Exam Type 2 diabetes mellitus without complication, without long- Performed By: #### F ER, CMP, CBC, FE and TIBC #### [facility] [address] [place] [address] #### TOMA SERUM, SPE, KAPPA #### [facility] , Cholesterol [Mass/volume] in Serum or PlasmaOrdered By: Elizabeth Alvarado on 08-24-2023 Cholesterol [Mass/Vol] 160 mg/dL Normal 140-200 [facility] Comment on above: Chol less than 200 m g/dl low riskChol 201-239 mg/dl borderline riskChol 240 mg/dl and greater high risk Order Comment: Reaso n for Exam Type 2 diabetes mellitus without complication, without long- Result Comment: Chol less than 200 mg/dl low risk Chol 201-239 mg/dl borderline risk Chol 240 mg/dl and greater high risk Performed By: #### F ER, CMP, CBC, FE and TIBC #### [facility] [address] [place] [address] #### TOMA SERUM, SPE, KAPPA #### [facility] , Cholesterol in LDL Calc [Mas s/Vol]Ordered By: Elizabeth Alvarado on 08-24-2023 Cholesterol in LDL [Mass/Vol] 78 mg/dL 0-100 [facility] Comment on above: LDL ATP III CLASSIFI CATIONLDL less than 100 mg/dL OptimalLDL 100-129 mg/dL Near or above optimalLDL 130-159 mg/dL Borderline highLDL 160-189 mg/dL HighLDL greater than 189 mg/dL Very high Cholesterol in VLDL Calc [Ma ss/Vol]Ordered By: Elizabeth Alvarado on 08-24-2023 Cholesterol in VLDL [Mass/Vol] 22 mg/dL [facility] Complete Blood Count Auto Di ffon 08-24-2023 Mean Corpuscular HGB Conc 32.5 g/dL Normal 32.0-35.0 [facility] Comment on above: Order Comment: Reaso n for Exam Type 2 diabetes mellitus without complication, without long- Performed By: #### T SH3 wRFLX, LIPID, CBC, CMP #### [address] NRBC% 0.2 /100{WBC} Normal 0-0.5 [facility] Comment on above: Order Comment: Reaso n for Exam Type 2 diabetes mellitus without complication, without long- Performed By: #### T SH3 wRFLX, LIPID, CBC, CMP #### [address] Comprehensive Metabolic Pane gretel 08-24-2023 Albumin [Mass/Vol] 4.3 g/dL Normal 3.5-5.7 [facility] Comment on above: Order Comment: Reaso n for Exam Type 2 diabetes mellitus without complication, without long- Performed By: #### F ER, CMP, CBC, FE and TIBC #### [address] #### TOMA SERUM, SPE, KAPPA #### [facility] , GFR/1.73 sq M.predicted MDRD (S/P/Bld) [Vol rate/Area] mL/min/{1.73_m2} Normal [facility] Comment on above: Order Comment: Reaso n for Exam Type 2 diabetes mellitus without complication, without long- Performed By: #### F ER, CMP, CBC, FE and TIBC #### [facility] [address] [place] [address] #### TOMA SERUM, SPE, KAPPA #### [facility] , Creatinine [Mass/volume] in Serum or PlasmaOrdered By: Elizabeth Alvarado on 08-24-2023 Creatinine [Mass/Vol] 0.65 mg/dL Normal 0.60-1.20 [facility] Comment on above: Order Comment: Reaso n for Exam Type 2 diabetes mellitus without complication, without long- Performed By: #### F ER, CMP, CBC, FE and TIBC #### [facility] [address] [place] [address] #### TOMA SERUM, SPE, KAPPA #### [facility] , Creatinine [Mass/volume] in UrineOrdered By: Elizabeth Alvarado on 08-24-2023 Creatinine (U) [Mass/Vol] 76.0 mg/dL [facility] Comment on above: No reference range e stablished Erythrocyte distribution wid th [Ratio] by Automated countOrdered By: Elizabeth Alvarado on 08-24-2023 Erythrocyte distribution width (RBC) [Ratio] 15.8 % High 11.9-15.3 [facility] Comment on above: Order Comment: Reaso n for Exam Type 2 diabetes mellitus without complication, without long- Performed By: #### T SH3 wRFLX, LIPID, CBC, CMP #### [facility] [address] [place] [address] Erythrocytes [#/volume] in B lood by Automated countOrdered By: Elizabeth Alvarado on 08-24-2023 RBC (Bld) [#/Vol] 5.06 10*6/uL High 3.60-5.00 [facility] Comment on above: Order Comment: Reaso n for Exam Type 2 diabetes mellitus without complication, without long- Performed By: #### T SH3 wRFLX, LIPID, CBC, CMP #### [facility] [address] Glucose [Mass/volume] in Ser um or PlasmaOrdered By: Elizabeth Alvarado on 08-24-2023 Glucose [Mass/Vol] 92 mg/dL Normal 70-100 [facility] Comment on above: ADA recommended refe rence rangeRandom Glucose Reference Range is dependent on time and content of last meal. Glucose of more than 200 mg/dL in a nonstressed, ambulatory subject supports the diagnosis of Diabetes Mellitus. Order Comment: Reaso n for Exam Type 2 diabetes mellitus without complication, without long- Result Comment: [place] om Glucose Reference Range is dependent on time and content of last meal. Glucose of more than 200 mg/dL in a nonstressed, ambulatory subject supports the diagnosis of Diabetes Mellitus. ADA recommended reference range Performed By: #### F ER, CMP, CBC, FE and TIBC #### [facility] [address] [place] [address] #### TOMA SERUM, SPE, KAPPA #### [facility] , Hematocrit [Volume Fraction] of Blood by Automated countOrdered By: Elizabeth Alvarado on 08-24-2023 Hematocrit (Bld) [Volume fraction] 40.6 % Normal 34.0-46.4 [facility] Comment on above: Order Comment: Reaso n for Exam Type 2 diabetes mellitus without complication, without long- Performed By: #### T SH3 wRFLX, LIPID, CBC, CMP #### [facility] [address] Hemoglobin [Mass/volume] in BloodOrdered By: Elizabeth Alvarado on 08-24-2023 Hemoglobin (Bld) [Mass/Vol] 13.2 g/dL Normal 11.8-15.4 [facility] Comment on above: Order Comment: Reaso n for Exam Type 2 diabetes mellitus without complication, without long- Performed By: #### T SH3 wRFLX, LIPID, CBC, CMP #### [facility] [address] Leukocytes [#/volume] correc silverio for nucleated erythrocytes in Blood by Automated counOrdered By: Elizabeth Alvarado on 08-24-2023 WBC corrected for nucl RBC Auto (Bld) [#/Vol] 10.2 10*3/uL 3.8-11.6 [facility] Leukocytes [#/volume] in Blo od by Automated countOrdered By: Elizabeth Alvarado on 08-24-2023 WBC (Bld) [#/Vol] 10.2 10*3/uL Normal 3.8-11.6 [facility] Comment on above: Order Comment: Reaso n for Exam Type 2 diabetes mellitus without complication, without long- Performed By: #### T SH3 wRFLX, LIPID, CBC, CMP #### [facility] [address] [place] [address] Lipid Panelon 08-24-2023 LDL Cholesterol,Calculated 78 mg/dL Normal 0-100 [facility] Comment on above: Order Comment: Reaso n for Exam Type 2 diabetes mellitus without complication, without long- Result Comment: LDL ATP III CLASSIFICATION LDL less than 100 mg/dL Optimal LDL 100-129 mg/dL Near or above optimal LDL 130-159 mg/dL Borderline high LDL 160-189 mg/dL High LDL greater than 189 mg/dL Very high Performed By: #### F ER, CMP, CBC, FE and TIBC #### [facility] [address] [place] [address] #### TOMA SERUM, SPE, KAPPA #### [facility] , Triglyceride w/Reflex 112 mg/dL Normal 0-149 [facility] Comment on above: [...] Prevention (CDC) test method. Performed By: #### F ER, CMP, CBC, FE and TIBC #### [address] #### TOMA SERUM, SPE, KAPPA #### [facility] , VLDL CHOLESTEROL 22 mg/dL Normal [facility] Comment on above: Order Comment: Reaso n for Exam Type 2 diabetes mellitus without complication, without long- Performed By: #### F ER, CMP, CBC, FE and TIBC #### [address] #### TOMA SERUM, SPE, KAPPA #### [facility] , Lymphocytes [#/volume] in Bl ood by Automated countOrdered By: Elizabeth Alvarado on 08-24-2023 Lymphocytes (Bld) [#/Vol] 2.6 10*3/uL Normal 1.00-4.8 [facility] Comment on above: Order Comment: Reaso n for Exam Type 2 diabetes mellitus without complication, without long- Performed By: #### T SH3 wRFLX, LIPID, CBC, CMP #### [address] Lymphocytes/100 leukocytes i n Blood by Automated countOrdered By: Elizabeth Alvarado on 08-24-2023 Lymphocytes/100 WBC (Bld) 25.5 % Normal . [facility] Comment on above: Order Comment: Reaso n for Exam Type 2 diabetes mellitus without complication, without long- Performed By: #### T SH3 wRFLX, LIPID, CBC, CMP #### [address] MCH [Entitic mass] by Automa silverio countOrdered By: Elizabeth Alvarado on 08-24-2023 MCH (RBC) [Entitic mass] 26.1 pg Normal 24.7-34.3 [facility] Comment on above: Order Comment: Reaso n for Exam Type 2 diabetes mellitus without complication, without long- Performed By: #### T SH3 wRFLX, LIPID, CBC, CMP #### [address] MCHC Auto (RBC) [Mass/Vol]Or dered By: Elizabeth Alvarado on 08-24-2023 MCHC (RBC) [Mass/Vol] 32.5 g/dL 32.0-35.0 [facility] MCV [Entitic volume] by Auto mated countOrdered By: Elizabeth Alvarado on 08-24-2023 MCV (RBC) [Entitic vol] 80.3 fL Normal 80-100 [facility] Comment on above: Order Comment: Reaso n for Exam Type 2 diabetes mellitus without complication, without long- Performed By: #### T SH3 wRFLX, LIPID, CBC, CMP #### [address] MicroAlb Creat Ratio,Uon Creatinine, Urine (Random) 76.0 mg/dL Normal [facility] Comment on above: Order Comment: Reaso n for Exam Type 2 diabetes mellitus without complication, without long- Result Comment: No r eference range established Performed By: #### F ER, CMP, CBC, FE and TIBC #### [address] #### TOMA SERUM, SPE, KAPPA #### [facility] , Microalbumin/Creatinine Ratio Not performed Normal 0.0-30.0 [facility] Comment on above: Order Comment: Reaso n for Exam Type 2 diabetes mellitus without complication, without long- Result Comment: PERF ORMED BY: [place] [address] PATHOLOGIST FRUIT COORDINATOR MELODY ELAM M.D. Performed By: #### F ER, CMP, CBC, FE and TIBC #### [address] #### TOMA SERUM, SPE, KAPPA #### [facility] , Microalbumin [Mass/volume] i n UrineOrdered By: Elizabeth Alvarado on 08-24-2023 Albumin DL <= 20 mg/L (U) [Mass/Vol] mg/dL High 0.0-1.8 [facility] Comment on above: Order Comment: Reaso n for Exam Type 2 diabetes mellitus without complication, without long- Performed By: #### F ER, CMP, CBC, FE and TIBC #### [facility] [address] #### TOMA SERUM, SPE, KAPPA #### [facility] , Neutrophils [#/volume] in Bl ood by Automated countOrdered By: Elizabeth Alvarado on 08-24-2023 Neutrophils (Bld) [#/Vol] 6.4 10*3/uL Normal 1.8-7.7 [facility] Comment on above: Order Comment: Reaso n for Exam Type 2 diabetes mellitus without complication, without long- Performed By: #### T SH3 wRFLX, LIPID, CBC, CMP #### [facility] [address] [place] [address] No Panel InformationOrdered By: Elizabeth Alvarado on 08-24-2023 Estimated GFR (CKD-EPI) > 60.0 mL/Min [facility] Creatinine Clearance (Chem N/A [facility] Nucleated erythrocytes [Pres ence] in Blood by Automated countOrdered By: Elizabeth Alvarado on 08-24-2023 Nucleated RBC Auto Ql (Bld) 0.2 /100{WBC} 0-0.5 [facility] Platelet mean volume [Entiti c volume] in Blood by Automated countOrdered By: Elizabeth Alvarado on 08-24-2023 Platelet mean volume (Bld) [Entitic vol] 9.8 fL Normal 6.3-10.7 [facility] Comment on above: Order Comment: Reaso n for Exam Type 2 diabetes mellitus without complication, without long- Performed By: #### T SH3 wRFLX, LIPID, CBC, CMP #### [facility] [address] [place] [address] Platelets [#/volume] in Bloo d by Automated countOrdered By: Elizabeth Alvarado on 08-24-2023 Platelets (Bld) [#/Vol] 283 10*3/uL Normal 150-450 [facility] Comment on above: Order Comment: Reaso n for Exam Type 2 diabetes mellitus without complication, without long- Performed By: #### T SH3 wRFLX, LIPID, CBC, CMP #### [facility] [address] [place] [address] Potassium [Moles/volume] in Serum or PlasmaOrdered By: Elizabeth Alvarado on 08-24-2023 Potassium [Moles/Vol] 4.3 mmol/L Normal 3.5-5.1 [facility] Comment on above: Order Comment: Reaso n for Exam Type 2 diabetes mellitus without complication, without long- Performed By: #### F ER, CMP, CBC, FE and TIBC #### [facility] [address] [place] [address] #### TOMA SERUM, SPE, KAPPA #### [facility] , Protein [Mass/volume] in Ser um or PlasmaOrdered By: Elizabeth Alvarado on 08-24-2023 Protein [Mass/Vol] 7.7 g/dL Normal 6.4-8.9 [facility] Comment on above: Order Comment: Reaso n for Exam Type 2 diabetes mellitus without complication, without long- Performed By: #### F ER, CMP, CBC, FE and TIBC #### [facility] [address] [place] [address] #### TOMA SERUM, SPE, KAPPA #### [facility] , Serum globulin measurement b y calculation (mass/volume)Ordered By: Elizabeth Alvarado on 08-24-2023 Globulin (S) [Mass/Vol] 3.4 g/dL Normal [facility] Comment on above: Order Comment: Reaso n for Exam Type 2 diabetes mellitus without complication, without long- Performed By: #### F ER, CMP, CBC, FE and TIBC #### [facility] [address] [place] [address] #### TOMA SERUM, SPE, KAPPA #### [facility] , Serum or plasma albumin/glob ulin mass ratioOrdered By: Elizabeth Alvarado on 08-24-2023 Albumin/Globulin [Mass ratio] 1.3 {ratio} Normal [facility] Comment on above: Order Comment: Reaso n for Exam Type 2 diabetes mellitus without complication, without long- Performed By: #### F ER, CMP, CBC, FE and TIBC #### [facility] [address] [place] [address] [place] #### TOMA SERUM, SPE, KAPPA #### [facility] , Serum or plasma anion gap de terminationOrdered By: Elizabeth Alvarado on 08-24-2023 Anion gap [Moles/Vol] 18.1 mmol/L High 6.0-15.0 [facility] Comment on above: Order Comment: Reaso n for Exam Type 2 diabetes mellitus without complication, without long- Performed By: #### F ER, CMP, CBC, FE and TIBC #### [facility] [address] [place] [address] [place] #### TOMA SERUM, SPE, KAPPA #### [facility] , Serum or plasma high density lipoprotein (HDL) cholesterol measurementOrdered By: Elizabeth Alvarado on 08-24-2023 Cholesterol in HDL [Mass/Vol] 60 mg/dL Normal 23- [facility] Comment on above: HDL CHOL ATP-III CLA SSIFICATION Cardiovascular RiskHDL > or equal to 60 mg/dL LOWHDL < 40 mg/dL HIGH Order Comment: Reaso n for Exam Type 2 diabetes mellitus without complication, without long- Result Comment: HDL CHOL ATP-III CLASSIFICATION Cardiovascular Risk HDL > or equal to 60 mg/dL LOW HDL < 40 mg/dL HIGH Performed By: #### F ER, CMP, CBC, FE and TIBC #### [facility] [address] [place] [address] [place] #### TOMA SERUM, SPE, KAPPA #### [facility] , Serum or plasma total choles terol/high density lipoprotein (HDL) cholesterol mass ratOrdered By: Elizabeth Alvarado on 08-24-2023 Cholesterol.total/Choles terol in HDL [Mass ratio] 2.7 {ratio} Normal <5.0 [facility] Comment on above: Order Comment: Reaso n for Exam Type 2 diabetes mellitus without complication, without long- Performed By: #### F ER, CMP, CBC, FE and TIBC #### [address] #### TOMA SERUM, SPE, KAPPA #### [facility] , Sodium [Moles/volume] in Ser um or PlasmaOrdered By: Elizabeth Alvarado on 08-24-2023 Sodium [Moles/Vol] 139 mmol/L Normal 136-145 [facility] Comment on above: Order Comment: Reaso n for Exam Type 2 diabetes mellitus without complication, without long- Performed By: #### F ER, CMP, CBC, FE and TIBC #### [address] #### TOMA SERUM, SPE, KAPPA #### [facility] , Thyroid Stim Hormone w/Rflxo n 08-24-2023 Thyroid Stim Hormone w/Rflx 2.40 u[iU]/mL Normal 0.45-5.33 [facility] Comment on above: Order Comment: Reaso n for Exam Type 2 diabetes mellitus without complication, without long- Result Comment: PERF ORMED BY: [place] [address] PATHOLOGIST FRUIT COORDINATOR MELOYD ELAM M.D. Performed By: #### F ER, CMP, CBC, FE and TIBC #### [address] #### TOMA SERUM, SPE, KAPPA #### [facility] , Thyrotropin [Units/volume] i n Serum or PlasmaOrdered By: Elizabeth Alvarado on 08-24-2023 TSH Qn 2.40 m[IU]/L 0.45-5.33 [facility] Triglyceride [Mass/volume] i n Serum or PlasmaOrdered By: Elizabeth Alvarado on 08-24-2023 Triglyceride [Mass/Vol] 112 mg/dL 0-149 [facility] Comment on above: TRIG ATP III CLASSIF ICATIONTRIG less than 150 mg/dL NormalTRIG 150-199 mg/dL Borderline highTRIG 200-500 mg/dL High TRIG greater than 500 mg/dL Very highStandard traceable to the Center for Disease Conrtrol and Prevention (CDC) test method. Urea nitrogen [Mass/volume] in Serum or PlasmaOrdered By: Elizabeth Alvarado on 08-24-2023 Urea nitrogen [Mass/Vol] 17 mg/dL Normal 7-25 [facility] Comment on above: Order Comment: Reaso n for Exam Type 2 diabetes mellitus without complication, without long- Performed By: #### F ER, CMP, CBC, FE and TIBC #### [facility] [address] #### TOMA SERUM, SPE, KAPPA #### [facility] , Urine microalbumin/creatinin e mass ratioOrdered By: Elizabeth Alvarado on 08-24-2023 Albumin/Creatinine DL <= 20 mg/L (U) [Mass ratio] TNP [facility] Comment on above: Test not performed MM screening mammo BI w/CADo n 05-10-2023 MM screening mammo BI w/CAD [facility] [address] [place] [address] [place] [address] Mammography Report Signed Patient: Geeta Shelton MR#: [id number] : 1970 Acct:[id number] Age/Sex: 53 / F ADM Date: 05/10/23 Loc: [place] Room: Type: [facility] Attending Dr: Elizabeth Alvarado APRN, METALLURGICAL ENGINEER-C Copies to: Elizabeth Alvarado APRN, CNP Ordering [...] Mary Colon M.D.05/10/2023 10:10 AM Dictation Location: [facility] Transcribed By: [facility] 05/10/23 1010 Dictated By: Mary Colon MD 05/10/23 1007 Signed By: 05/10/23 1010 Normal [facility] Established Visit (Orthopaed [...] grammatical areas may persist related to the Perfect [employer] software Merrill Alejandro PA-C . Active Problems [...] Dec 29 2022 1:38PM EST (Author) Normal [facility] Established Visit (Orthopaed ic Surgery)on 09-22-2022 Established Visit (Orthopaedic Surgery) Diagnoses/Problems Assessed Status post total knee replacement (V43.65) (Z96.659) Orders Status post total knee replacement Xray Knee 3 View; Status:Complete; Done: [id number] 01:48PM Laterality : Right Radiologist to Determine [...] grammatical areas may persist related to the Perfect Escapes software Acosta Schafer MD Senior Attending Physician [facility] . Active Problems Problems Acute pain of [...] 1 tablet daily Results/Data Xray Knee 3 [id number] 01:48PMAcosta Schafer Test NameResultFlagReference Xray Knee 3 View(Report) FINAL REPORT Interpreted by: ACOSTA SCHAFER BURTON, MD 09/22/22 14:13 Patient Name: GEETA SHELTON STUDY: KNEE; 3 VIEWS; Right; 09/22/2022 1:48 pm INDICATION: pain Z96.659: Status post total knee replacement. ACCESSION NUMBER(S): [id number] ORDERING CLINICIAN: ACOSTA SCHAFER FINDINGS: Right knee [...] Status post total knee replacement. ACCESSION NUMBER(S): [id number] ORDERING CLINICIAN: ACOSTA SCHAFER FINDINGS: Right knee three views. Status post revision total knee replacement components in good position no signs of fracture dislocation or other bony abnormalities Electronically signed by: ACOSTA SCHAFER MD Normal [facility] Radiologyon 09-22-2022 XR Knee 3 Views Normal -[facility] Work Phone: Alanine aminotransferase [En zymatic activity/volume] in Serum or PlasmaOrdered By: Zoey Ramirez on 08-17-2022 ALT [Catalytic activity/Vol] 45 U/L 7-52 [facility] Albumin [Mass/volume] in Ser um or PlasmaOrdered By: Zoey Ramirez on 08-17-2022 Albumin [Mass/Vol] 3.7 g/dL 2.9-4.4 [facility] Albumin [Mass/volume] in Ser um or Plasma by Bromocresol green (BCG) dye binding methoOrdered By: Zoey Ramirez on 08-17-2022 Albumin BCG dye [Mass/Vol] 4.1 g/dL 3.5-5.7 [facility] Albumin/Protein.total in 24 hour Urine by ElectrophoresisOrdered By: Zoey Ramirez on 08-17-2022 Albumin Elph (24H U) [Mass fraction] 59.9 % . [facility] Alkaline phosphatase [Enzyma tic activity/volume] in Serum or PlasmaOrdered By: Zoey Ramirez on 08-17-2022 ALP [Catalytic activity/Vol] 90 U/L 34-104 [facility] Aspartate aminotransferase [ Enzymatic activity/volume] in Serum or PlasmaOrdered By: Zoey Ramirez on 08-17-2022 AST [Catalytic activity/Vol] 40 U/L 13-39 [facility] Basophils Auto (Bld) [#/Vol] Ordered By: Zoey Ramirez on 08-17-2022 Basophils (Bld) [#/Vol] 0.1 10*3/uL 0.0-0.2 [facility] Basophils/100 WBC Auto (Bld) Ordered By: Zoey Ramirez on 08-17-2022 Basophils/100 WBC (Bld) 0.9 % . [facility] Bilirubin.total [Mass/volume ] in Serum or PlasmaOrdered By: Zoey Ramirez on 08-17-2022 Bilirubin [Mass/Vol] 0.4 mg/dL 0.3-1.[address] [facility] Calcium [Mass/volume] in Ser um or PlasmaOrdered By: Zoey Ramirez on 08-17-2022 Calcium [Mass/Vol] 9.1 mg/dL 8.6-10.3 [facility] Carbon dioxide, total [Moles /volume] in Serum or PlasmaOrdered By: Zoey Ramirez on 08-17-2022 CO2 [Moles/Vol] 27.9 mmol/L 21.0-31.0 [facility] Chloride [Moles/volume] in S hugo or PlasmaOrdered By: Zoey Ramirez on 08-17-2022 Chloride [Moles/Vol] 100 mmol/L 98-[address] [facility] Creatinine [Mass/volume] in Serum or PlasmaOrdered By: Zoey Ramirez on 08-17-2022 Creatinine [Mass/Vol] 0.71 mg/dL 0.60-1.20 [facility] Eosinophils Auto (Bld) [#/Vo l]Ordered By: Zoey Ramirez on 08-17-2022 Eosinophils (Bld) [#/Vol] 0.3 10*3/uL 0.0-0.45 [facility] Eosinophils/100 WBC Auto (Bl d)Ordered By: Zoey Ramirez on 08-17-2022 Eosinophils/100 WBC (Bld) 3.1 % . [facility] Erythrocyte distribution wid th Auto (RBC) [Ratio]Ordered By: Zoey Ramirez on 08-17-2022 Erythrocyte distribution width (RBC) [Ratio] 16.5 % 11.9-15.3 [facility] Ferritin [Mass/volume] in Se rum or PlasmaOrdered By: Zoey Ramirez on 08-17-2022 Ferritin [Mass/Vol] 85.3 ng/mL 11.0-306.8 [facility] Folate [Mass/volume] in Seru m or PlasmaOrdered By: Zoey Ramirez on 08-17-2022 Folate [Mass/Vol] 15.1 ng/mL >5.9 [facility] Comment on above: Folate reference ran ge: >5.9 ng/mlThe WHO technical consultation on folate and vitamin [id number] has determined that folate concentrations lessthan 4 ng/ml are considered deficient. Gamma globulin/Protein.total in 24 hour Urine by ElectrophoresisOrdered By: Zoey Ramirez on 08-17-2022 Gamma globulin Elph (24H U) [Mass fraction] 15.3 % . [facility] Globulin Calc (S) [Mass/Vol] Ordered By: Zoey Ramirez on 08-17-2022 Globulin (S) [Mass/Vol] 4.0 g/dL [facility] Glucose [Mass/volume] in Ser um or PlasmaOrdered By: Zoey Ramirez on 08-17-2022 Glucose [Mass/Vol] 142 mg/dL 70-100 [facility] Comment on above: ADA recommended refe rence rangeRandom Glucose Reference Range is dependent on time and content of last meal. Glucose of more than 200 mg/dL in a nonstressed, ambulatory subject supports the diagnosis of Diabetes Mellitus. Hematocrit Auto (Bld) [Volum e fraction]Ordered By: Zoey Ramirez on 08-17-2022 Hematocrit (Bld) [Volume fraction] 41.3 % 34.0-46.4 [facility] Hemoglobin [Mass/volume] in BloodOrdered By: Zoey Ramirez 08-17-2022 Hemoglobin (Bld) [Mass/Vol] 13.2 g/dL 11.8-15.4 [facility] IgA [Mass/volume] in Serum o r PlasmaOrdered By: Zoey Ramirez on 08-17-2022 IgA [Mass/Vol] 498 mg/dL 87-352 [facility] IgG [Mass/volume] in Serum o r PlasmaOrdered By: Zoey Ramirez on 08-17-2022 IgG [Mass/Vol] 1834 mg/dL 586-1602 [facility] IgM [Mass/volume] in Serum o r PlasmaOrdered By: Zoey Ramirez on 08-17-2022 IgM [Mass/Vol] 124 mg/dL 26-217 [facility] Comment on above: Performed at: [employer] [address] [id number] Director: Jeyson Duncan PhD, Phone: [phone] Immunofixation for UrineOrde red By: Zoey Ramirez on 08-17-2022 Interpretation Immunofixation (U) [Interp] See comment . [facility] Comment on above: No monoclonality det ected.Performed at: [facility] [address] [id number] Director: Jeyson Duncan PhD, Phone: [phone] Immunoglobulin light chains. kappa.free [Mass/volume] in SerumOrdered By: Zoey Ramirez on 08-17-2022 Immunoglobulin light chains.kappa.free (S) [Mass/Vol] 47.1 mg/L 3.3-19.4 [facility] Immunoglobulin light chains. kappa.free/Immunoglobulin light chains.lambda.free [MassOrdered By: Zoey Ramirez on 08-17-2022 Immunoglobulin light chains.kappa.free/Immuno globulin light chains.lambda.free (S) [Mass ratio] 1.65 0.26-1.65 [facility] Comment on above: Performed at: [employer] [id number] [place] [id number] Director: Jeyson Duncan PhD, Phone: [phone] Immunoglobulin light chains. lambda.free [Mass/volume] in Serum or PlasmaOrdered By: Zoey Ramirez on 08-17-2022 Immunoglobulin light chains.lambda.free [Mass/Vol] 28.6 mg/L 5.7-26.3 [facility] Iron [Mass/volume] in Serum or PlasmaOrdered By: Zoey Ramirez on 08-17-2022 Iron [Mass/Vol] 41 ug/dL 50-212 [facility] Iron binding capacity [Mass/ volume] in Serum or PlasmaOrdered By: Zoey Ramirez on 08-17-2022 Iron binding capacity [Mass/Vol] 344 ug/dL 255-450 [facility] Iron saturation [Mass Fracti on] in Serum or PlasmaOrdered By: Zoey Ramirez on 08-17-2022 Iron saturation [Mass fraction] 11.9 % 20-50 [facility] Leukocytes [#/volume] correc silverio for nucleated erythrocytes in Blood by Automated counOrdered By: Zoey Ramirez on 08-17-2022 WBC corrected for nucl RBC Auto (Bld) [#/Vol] 9.9 10*3/uL 3.8-11.6 [facility] Lymphocytes Auto (Bld) [#/Vo l]Ordered By: Zoey Ramirez on 08-17-2022 Lymphocytes (Bld) [#/Vol] 2.8 10*3/uL 1.00-4.8 [facility] Lymphocytes/100 WBC Auto (Bl d)Ordered By: Zoey Ramirez on 08-17-2022 Lymphocytes/100 WBC (Bld) 28.5 % . [facility] MCH Auto (RBC) [Entitic mass ]Ordered By: Zoey Ramirez on 08-17-2022 MCH (RBC) [Entitic mass] 24.9 pg 24.7-34.3 [facility] MCHC Auto (RBC) [Mass/Vol]Or dered By: Zoey Ramirez on 08-17-2022 MCHC (RBC) [Mass/Vol] 32.0 g/dL 32.0-35.0 [facility] MCV Auto (RBC) [Entitic vol] Ordered By: Zoey Ramirez on 04-25-2023 MCV (RBC) [Entitic vol] 77.8 fL 80-100 [facility] Monocytes Auto (Bld) [#/Vol] Ordered By: Zoey Ramirez on 08-17-2022 Monocytes (Bld) [#/Vol] 0.6 10*3/uL 0.0-0.8 [facility] Monocytes/100 WBC Auto (Bld) Ordered By: Zoey Ramirez on 08-17-2022 Monocytes/100 WBC (Bld) 5.9 % . [facility] Neutrophils Auto (Bld) [#/Vo l]Ordered By: Zoey Ramirez on 08-17-2022 Neutrophils (Bld) [#/Vol] 6.1 10*3/uL 1.8-7.7 [facility] Neutrophils/100 WBC Auto (Bl d)Ordered By: Zoey Ramirez on 08-17-2022 Neutrophils/100 WBC (Bld) 61.6 % . [facility] No Panel InformationOrdered By: Zoey Ramirez on 08-17-2022 Estimated GFR (CKD-EPI) > 60.0 mL/Min [facility] Creatinine Clearance (Chem 122.85 [facility] Protein Electrophoresis M-Antwan Not observed g/dL Not Observed [facility] Protein Electrophoresis Note See comment . [facility] Comment on above: Protein electrophore sis scan will follow via computer,mail, or account representative delivery.Performed at: [id number] [place] [id number] Director: Jeyson Duncan PhD, Phone: [phone] Serum Immunofixation Comment: . [facility] Comment on above: Presence of monoclon al protein is unclear at this time. Suggestrepeat in 3 to 6 months if clinically indicated. Urine Random Prot Electrophor Note See comment . [facility] Comment on above: Protein electrophore sis scan will follow via computer,mail, or account representative delivery.Performed at: [id number] [place], [place] [id number] Director: Jeyson Duncan PhD, Phone: [phone] Nucleated erythrocytes [Pres ence] in Blood by Automated countOrdered By: Zoey Ramirez on 08-17-2022 Nucleated RBC Auto Ql (Bld) 0.1 /100{WBC} 0-0.5 [facility] Platelet mean volume Auto (B ld) [Entitic vol]Ordered By: Zoey Ramirez on 08-17-2022 Platelet mean volume (Bld) [Entitic vol] 8.5 fL 6.3-10.7 [facility] Platelets Auto (Bld) [#/Vol] Ordered By: Zoey Ramirez on 08-17-2022 Platelets (Bld) [#/Vol] 345 10*3/uL 150-450 [facility] Potassium [Moles/volume] in Serum or PlasmaOrdered By: Zoey Ramirez on 08-17-2022 Potassium [Moles/Vol] 4.7 mmol/L 3.5-5.1 [facility] Protein [Mass/volume] in Ser um or PlasmaOrdered By: Zoey Ramirez on 08-17-2022 Protein [Mass/Vol] 8.1 g/dL 6.4-8.9 [facility] Protein [Mass/Vol] 8.0 g/dL 6.0-8.5 [facility] Protein [Mass/volume] in Uri neOrdered By: Zoey Ramirez on 08-17-2022 Protein (U) [Mass/Vol] 75.0 mg/dL Not Estab. Fi [facility] Protein.monoclonal/Protein.t otal in 24 hour Urine by ElectrophoresisOrdered By: Zoey Ramirez on 08-17-2022 Protein.monoclonal Elph (24H U) [Mass fraction] Not observed % Not Observed [facility] RBC Auto (Bld) [#/Vol]Ordere d By: Zoey Ramirez on 08-17-2022 RBC (Bld) [#/Vol] 5.31 10*6/uL 3.60-5.00 [facility] Serum globulin measurement ( mass/volume)Ordered By: Zoey Ramirez on 08-17-2022 Globulin (S) [Mass/Vol] 4.3 g/dL 2.2-3.9 [facility] Serum or plasma albumin/glob ulin mass ratioOrdered By: Zoey Ramirez on 08-17-2022 Albumin/Globulin [Mass ratio] 1.0 {ratio} [facility] Albumin/Globulin [Mass ratio] 0.9 {ratio} 0.7-1.7 [facility] Serum or plasma alpha 1 glob ulin measurement by electrophoresis (mass/volume)Ordered By: Zoey Ramirez on 08-17-2022 Alpha 1 globulin Elph [Mass/Vol] 0.3 g/dL 0.0-0.4 [facility] Serum or plasma alpha 2 glob ulin measurement by electrophoresis (mass/volume)Ordered By: Zoey Ramirez on 08-17-2022 Alpha 2 globulin Elph [Mass/Vol] 0.8 g/dL 0.4-1.0 [facility] Serum or plasma anion gap de terminationOrdered By: Zoey Ramirez 08-17-2022 Anion gap [Moles/Vol] 12.8 mmol/L 6.0-15.0 [facility] Serum or plasma beta globuli n measurement by electrophoresis (mass/volume)Ordered By: Zoey Ramirez 08-17-2022 Beta globulin Elph [Mass/Vol] 1.3 g/dL 0.7-1.3 [facility] Serum or plasma gamma globul in measurement by electrophoresis (mass/volume)Ordered By: Zoey Ramirez 08-17-2022 Gamma globulin Elph [Mass/Vol] 1.9 g/dL 0.4-1.8 [facility] Sodium [Moles/volume] in Ser um or PlasmaOrdered By: Zoey Ramirez on 08-17-2022 Sodium [Moles/Vol] 136 mmol/L 136-145 [facility] Transferrin [Mass/volume] in Serum or PlasmaOrdered By: Zoey Ramirez on 08-17-2022 Transferrin [Mass/Vol] 246 mg/dL 203-362 [facility] Urea nitrogen [Mass/volume] in Serum or PlasmaOrdered By: Zoey Ramirez on 08-17-2022 Urea nitrogen [Mass/Vol] 23 mg/dL 11-16 [facility] Urine alpha 1 globulin/total protein by electrophoresisOrdered By: Zoey Ramirez on 08-17-2022 Alpha 1 globulin Elph (U) [Mass fraction] 4.5 % . [facility] Urine alpha 2 globulin/total protein ratio by electrophoresisOrdered By: Zoeyelvin Ramirez on 08-17-2022 Alpha 2 globulin Elph (U) [Mass fraction] 7.7 % . [facility] Urine beta globulin measurem ent by electrophoresis (mass/volume)Ordered By: Zoeyelvin Ramirez on 08-17-2022 Beta globulin Elph (U) [Mass/Vol] 12.6 % . [facility] Vitamin B12 ser/plasOrdered By: Zoeyelvin Ramirez on 08-17-2022 Cobalamin (Vitamin B12) [Mass/Vol] 387 pg/mL 180-914 [facility] WBC Auto (Bld) [#/Vol]Ordere d By: Zoey Ramirez on 08-17-2022 WBC (Bld) [#/Vol] 9.9 10*3/uL 3.8-11.6 [facility] Established Visit (Orthopaed ic Surgery)on 08-11-2022 [...] to do her outpatient physical therapy at [facility]. She has a few visits [...] grammatical areas may persist related to the Dragon software Merrill Alejandro PA-C . Active Problems [...] Aug 11 2022 10:34AM EST (Author) Normal [employer] Albumin [Mass/volume] in Ser um or PlasmaOrdered By: Lorrie Baig on 07-23-2022 Albumin [Mass/Vol] 3.3 g/dL 2.9-4.4 [facility] Creatine kinase [Enzymatic a ctivity/volume] in Serum or PlasmaOrdered By: Lorrie Baig on 07-23-2022 CK [Catalytic activity/Vol] 51 U/L 30-223 [facility] Erythrocyte sedimentation ra te by Photometric methodOrdered By: Lorrie Baig on 07-23-2022 ESR Photometric method (Bld) [Velocity] 65 mm/hr 0-29 [facility] Folate [Mass/volume] in Seru m or PlasmaOrdered By: Lorrie Baig on 07-23-2022 Folate [Mass/Vol] 12.8 ng/mL >5.9 [facility] Comment on above: Folate reference ran ge: >5.9 ng/mlThe WHO technical consultation on folate and vitamin [id number] has determined that folate concentrations lessthan 4 ng/ml are considered deficient. Magnesium [Mass/volume] in S hugo or PlasmaOrdered By: Lorrie Baig on 07-23-2022 Magnesium [Mass/Vol] 1.8 mg/dL 1.9-2.[address] [facility] No Panel InformationOrdered By: Lorrie Baig on 07-23-2022 Protein Electrophoresis Interpret See comment . [facility] Comment on above: Faint band in gamma region suspicious for monoclonalimmunoglobulin. This band may represent a benign spike asseen in older people or could be a paraprotein as seen inMultiple Myeloma, Waldenstrom's Macroglobulinemia orLymphoma. Depending on clinical circumstances, furtherdiagnostic studies may include serum immunofixation orserum free light chain quantitation.Performed at: [place] [id number] Director: Jeyson Duncan PhD, Phone: [phone] Protein Electrophoresis M-Antwan Comment: g/dL Not Observed [facility] Comment on above: ASYMMETRICAL GAMMA Protein Electrophoresis Note See comment . [facility] Comment on above: Protein electrophore sis scan will follow via computer,mail, or account representative delivery. Phosphate [Mass/volume] in S hugo or PlasmaOrdered By: Lorrie Baig on 07-23-2022 Phosphate [Mass/Vol] 4.5 mg/dL 3.7-7.[address] [facility] Protein [Mass/volume] in Ser um or PlasmaOrdered By: Lorrie Baig on 07-23-2022 Protein [Mass/Vol] 7.2 g/dL 6.0-8.5 [facility] Serum globulin measurement ( mass/volume)Ordered By: Lorrie Baig on 07-23-2022 Globulin (S) [Mass/Vol] 3.9 g/dL 2.2-3.9 [facility] Serum or plasma albumin/glob ulin mass ratioOrdered By: Lorrie Baig on 07-23-2022 Albumin/Globulin [Mass ratio] 0.8 {ratio} 0.7-1.7 [facility] Serum or plasma alpha 1 glob ulin measurement by electrophoresis (mass/volume)Ordered By: Lorrie Baig on 07-23-2022 Alpha 1 globulin Elph [Mass/Vol] 0.3 g/dL 0.0-0.4 [facility] Serum or plasma alpha 2 glob ulin measurement by electrophoresis (mass/volume)Ordered By: Lorrie Baig on 07-23-2022 Alpha 2 globulin Elph [Mass/Vol] 0.7 g/dL 0.4-1.0 [facility] Serum or plasma beta globuli n measurement by electrophoresis (mass/volume)Ordered By: Lorrie Baig on 07-23-2022 Beta globulin Elph [Mass/Vol] 1.2 g/dL 0.7-1.3 [facility] Serum or plasma gamma globul in measurement by electrophoresis (mass/volume)Ordered By: Lorrie Baig on 07-23-2022 Gamma globulin Elph [Mass/Vol] 1.7 g/dL 0.4-1.8 [facility] Thyrotropin [Units/volume] i n Serum or PlasmaOrdered By: Lorrie Baig on 07-23-2022 TSH Qn 4.76 m[IU]/L 0.45-5.33 [facility] Vitamin B12 ser/plasOrdered By: Lorrie Baig on 07-23-2022 Cobalamin (Vitamin B12) [Mass/Vol] 358 pg/mL 180-914 [facility] KNEE 3 VIEWSon 07-14-2022 KNEE 3 VIEWS Patient Name: GEETA SHELTON STUDY: KNEE; 3 VIEWS; Right; 07/14/2022 8:47 am INDICATION: pain Z96.659: Status post total knee replacement. ACCESSION NUMBER(S): [id number] ORDERING CLINICIAN: ACOSTA SCHAFER FINDINGS: Right knee three views. Status post revision type total knee replacement components in good position no signs of fracture dislocation or other bony abnormality dee in the soft tissues anteriorly. Electronically signed by: ACOSTA SCHAFER MD [facility] Post Op (Orthopaedic Surgery )on 07-14-2022 [...] she will most likely do this at [facility] in [place]. Physical exam General: No acute distress and [...] Diagnostics Please see dictated x-ray report Procedure Coffey removed Steri-Strips placed without complication Assessment Status [...] grammatical areas may persist related to the [employer] software Merrill Alejandro PA-C . Active Problems Problems Acute pain of both knees (338.19,719.46) (M25.561,M25.562) Status post total knee replacement (V43.65) (Z96.659) Allergies Medication Penicillins Recorded By: Tarsha Murray; 05/18/2022 8:47:33 AM Current Meds Medication NameInstruction Xarelto 10 MG Oral TabletTake 1 tablet daily Results/Data Xray Knee 3 [id number] 08:47AMSAcosta steward Test NameResultFlagReference Xray Knee 3 View(Report) FINAL REPORT Interpreted by: ACOSTA SCHAFER BURTON, MD 07/14/22 08:49 Patient Name: GEETA SHELTON STUDY: KNEE; 3 VIEWS; Right; 07/14/2022 8:47 am INDICATION: pain Z96.659: Status post total knee replacement. ACCESSION NUMBER(S): [id number] ORDERING CLINICIAN: ACOSTA SCHAFER FINDINGS: Right knee three views. Status post revision type total knee replacement components in good position no signs of fracture dislocation or other bony abnormality dee in the soft tissues anteriorly. Electronically signed by: ACOSTA SCHAFER 07/14/22 08:49 Signatures Electronically signed by : Merrill Alejandro PA-C; Jul 14 2022 9:06AM EST (Author) Normal [facility] Radiologyon 07-14-2022 XR Knee 3 Views Normal -[place] [facility] Work Phone: Basic Metabolic Panel Reflex Mgon 07-03-2022 Anion gap [Moles/Vol] 10 mmol/L Normal 9-15 [facility] Comment on above: Performed By: #### B MPX #### [facility] [address] [place] [address] Calcium [Mass/Vol] 9.2 mg/dL Normal 8.5-9.9 [facility] Comment on above: Performed By: #### B MPX #### [facility] [address] [place] [address] Chloride [Moles/Vol] 100 mmol/L Normal 95-107 [facility] Comment on above: Performed By: #### B MPX #### [facility] [address] [place] [address] CO2 [Moles/Vol] 27 mmol/L Normal 20-31 [facility] Comment on above: Performed By: #### B MPX #### [facility] [address] [place] [address] Creatinine [Mass/Vol] 0.51 mg/dL Normal 0.50-0.90 [facility] Comment on above: Performed By: #### B MPX #### [facility] [address] [place] [address] GFR >60.0 Normal >60 [facility] Comment on above: Result Comment: Pedi atric calculator link https://www.kidney.org/professionals/kdoqi/gfr_calculatorped Effective Jan 25, [...] secretion. Performed By: #### B MPX #### [facility] [address] [place] [address] Glucose [Mass/Vol] 132 mg/dL Critically high 70-99 [facility] Comment on above: Performed By: #### B MPX #### [facility] [address] [place] [address] Magnesium [Moles/Vol] 4.6 mmol/L Normal 3.4-4.9 [facility] Comment on above: Performed By: #### B MPX #### [facility] [address] [place] [address] Sodium [Moles/Vol] 137 mmol/L Normal 135-144 [facility] Comment on above: Performed By: #### B MPX #### [facility] [address] [place] [address] Urea nitrogen [Mass/Vol] 12 mg/dL Normal 6-20 [facility] Comment on above: Performed By: #### B MPX #### [facility] [address] [place] [address] Basic Metabolic Panel w/ Ref hillary to MGon 07-03-2022 Anion gap [Moles/Vol] 10 mmol/L [facility] [employer] Calcium [Mass/Vol] 9.2 mg/dL 8.5 - 9.9 mg/dL [facility] [employer] Chloride [Moles/Vol] 100 mmol/L [facility] [employer] CO2 [Moles/Vol] 27 mmol/L [facility] I[facility] Creatinine [Mass/Vol] 0.51 mg/dL 0.50 - 0.90 mg/dL [facility] [employer] GFR/1.73 sq M.predicted MDRD (S/P/Bld) [Vol rate/Area] 60 - PINF [facility] Comment on above: Pediatric calculator link https://www.kidney.org/professionals/kdoqi/gfr_calculatorped [...] 132 mg/dL High 70 - 99 mg/dL [facility] Interpretation and review of laboratory results Abnormal [facility] Ippies Potassium reflex Magnesium 4.6 [facility] [employer] Sodium [Moles/Vol] 137 mmol/L [facility] Urea nitrogen (BldV) [Mass/Vol] 12 mg/dL 6 - 20 mg/dL [facility] CBCon 07-03-2022 Hematocrit (Bld) [Volume fraction] 39.9 % 37.0 - 47.0 % [facility] Hemoglobin (Bld) [Mass/Vol] 12.9 g/dL 12.0 - 16.0 g/dL [facility] Interpretation and review of laboratory results Abnormal [facility] MCH (RBC) [Entitic mass] 25.7 pg Low 27. 0 - 31.3 pg [facility] MCHC (RBC) [Mass/Vol] 32.3 % Low 33.0 - 37.0 % [facility] MCV (RBC) [Entitic vol] 79.6 fL 79.4 - 94.8 fL [facility] Platelet distribution width (Bld) [Ratio] 16.5 % High 11.5 - 14.5 % [facility] Platelets (Bld) [#/Vol] 230 10*3/uL 130 - 400 K/uL [facility] RBC (Bld) [#/Vol] 5.02 10*6/uL [facility] WBC (Bld) [#/Vol] 9.2 10*3/uL 4.8 - 10.8 K/uL [facility] CBC With Platelet No Differe ntialon 07-03-2022 Erythrocyte distribution width (RBC) [Ratio] 16.5 % Critically high 11.5-14.5 [facility] Comment on above: Performed By: #### C BCND #### [facility] [address] [place] [address] Hematocrit (Bld) [Volume fraction] 39.9 % Normal 37.0-47.0 [facility] Comment on above: Performed By: #### C BCND #### [facility] [address] [place] [address] Hemoglobin (Bld) [Mass/Vol] 12.9 g/dL Normal 12.0-16.0 [facility] Comment on above: Performed By: #### C BCND #### [facility] [address] [place] [address] MCH (RBC) [Entitic mass] 25.7 pg Low 27.0-31.3 [facility] Comment on above: Performed By: #### C BCND #### [facility] [address] [place] [address] MCHC 32.3 % Low 33.0-37.0 [facility] Comment on above: Performed By: #### C BCND #### [facility] [address] [place] [address] MCV (RBC) [Entitic vol] 79.6 fL Normal 79.4-94.8 [facility] Comment on above: Performed By: #### C BCND #### [facility] [address] [place] [address] Platelets (Bld) [#/Vol] 230 10*3/uL Normal 130-400 [facility] Comment on above: Performed By: #### C BCND #### [facility] [address] [place] [address] RBC (Bld) [#/Vol] 5.02 10*6/uL Normal 4.20-5.40 [facility] Comment on above: Performed By: #### C BCND #### [facility] [address] [place] [address] WBC (Bld) [#/Vol] 9.2 10*3/uL Normal 4.8-10.8 [facility] Comment on above: Performed By: #### C BCND #### [facility] [address] [place] [address] Basic Metabolic Panel Reflex Mgon 07-02-2022 Anion gap [Moles/Vol] 8 mmol/L Low 9-15 [facility] Comment on above: Order Comment: Colle ction has been rescheduled by VALDO at 07/02/2022 05:49 Reason: Come back last per lauren reinoso Performed By: #### B MPX #### [facility] [address] [place] [address] Calcium [Mass/Vol] 8.9 mg/dL Normal 8.5-9.9 [facility] Comment on above: Order Comment: aDja zamarripa has been rescheduled by HERAM at 07/02/2022 05:49 Reason: Come back last per rn fouzia Performed By: #### B MPX #### [facility] [address] [place] [address] Chloride [Moles/Vol] 100 mmol/L Normal 95-107 [facility] Comment on above: Order Comment: Daja zamarripa has been rescheduled by HERAM at 07/02/2022 05:49 Reason: Come back last per rn fouzia Performed By: #### B MPX #### [facility] [address] [place] [address] CO2 [Moles/Vol] 27 mmol/L Normal 20-31 [facility] Comment on above: Order Comment: Daja zamarripa has been rescheduled by HERAM at 07/02/2022 05:49 Reason: Come back last per rn fouzia Performed By: #### B MPX #### [facility] [address] [place] [address] Creatinine [Mass/Vol] 0.61 mg/dL Normal 0.50-0.90 [facility] Comment on above: Order Comment: Daja zamarripa has been rescheduled by HERAM at 07/02/2022 05:49 Reason: Come back last per rn fouzia Performed By: #### B MPX #### [facility] [address] [place] [address] GFR >60.0 Normal >60 [facility] Comment on above: Order Comment: [...] secretion. Performed By: #### B MPX #### [facility] [address] [place] [address] Glucose [Mass/Vol] 144 mg/dL Critically high 70-99 [facility] Comment on above: Order Comment: Daja zamarripa has been rescheduled by HERMICHELLE at 07/02/2022 05:49 Reason: Come back last per lauren reinoso Performed By: #### B MPX #### [facility] [address] [address] Magnesium [Moles/Vol] 4.8 mmol/L Normal 3.4-4.9 [facility] Comment on above: Order Comment: Daja zamarripa has been rescheduled by HERMICHELLE at 07/02/2022 05:49 Reason: Come back last per rn fouzia Performed By: #### B MPX #### [facility] [address] [place] [address] Sodium [Moles/Vol] 135 mmol/L Normal 135-144 [facility] Comment on above: Order Comment: Daja zamarripa has been rescheduled by HERMICHELLE at 07/02/2022 05:49 Reason: Come back last per lauren reinoso Performed By: #### B MPX #### [facility] [address] [place] [address] Urea nitrogen [Mass/Vol] 21 mg/dL Critically high 6-20 [facility] Comment on above: Order Comment: Daja zamarripa has been rescheduled by HERAM at 07/02/2022 05:49 Reason: Come back last per lauren reinoso Performed By: #### B MPX #### [facility] [address] [place] [address] Basic Metabolic Panel w/ Ref hillary to MGon 07-02-2022 Anion gap [Moles/Vol] 8 mmol/L Low [facility] Calcium [Mass/Vol] 8.9 mg/dL 8.5 - 9.9 mg/dL [facility] Chloride [Moles/Vol] 100 mmol/L [facility] CO2 [Moles/Vol] 27 mmol/L [facility] Creatinine [Mass/Vol] 0.61 mg/dL 0.50 - 0.90 mg/dL [facility] GFR/1.73 sq M.predicted MDRD (S/P/Bld) [Vol rate/Area] 60 - PINF [facility] Comment on above: Pediatric calculator link https://www.kidney.org/professionals/kdoqi/gfr_calculatorped [...] 144 mg/dL High 70 - 99 mg/dL [facility] Interpretation and review of laboratory results Abnormal [facility] Potassium reflex Magnesium 4.8 [facility] Sodium [Moles/Vol] 135 mmol/L [facility] Urea nitrogen (BldV) [Mass/Vol] 21 mg/dL High 6 - 20 mg/dL [facility] Collection has been rescheduled by VALDO at 07/02/2022 05:49 Reason: Come back last per lauren galdamezfouzia [facility] CBCon 07-02-2022 Hematocrit (Bld) [Volume fraction] 40.3 % 37.0 - 47.0 % [facility] Hemoglobin (Bld) [Mass/Vol] 12.9 g/dL 12.0 - 16.0 g/dL [facility] Interpretation and review of laboratory results Abnormal [facility] MCH (RBC) [Entitic mass] 25.5 pg Low 27. 0 - 31.3 pg [facility] MCHC (RBC) [Mass/Vol] 32.1 % Low 33.0 - 37.0 % [facility] MCV (RBC) [Entitic vol] 79.6 fL 79.4 - 94.8 fL [facility] Platelet distribution width (Bld) [Ratio] 16.3 % High 11.5 - 14.5 % [facility] Platelets (Bld) [#/Vol] 230 10*3/uL 130 - 400 K/uL [facility] RBC (Bld) [#/Vol] 5.06 10*6/uL [facility] WBC (Bld) [#/Vol] 9.1 10*3/uL 4.8 - 10.8 K/uL [facility] Collection has been rescheduled by HERMICHELLE at 07/02/2022 05:49 Reason: Come back last per lauren reinoso [facility] CBC With Platelet No Differe ntialon 07-02-2022 Erythrocyte distribution width (RBC) [Ratio] 16.3 % Critically high 11.5-14.5 [facility] Comment on above: Order Comment: Daja zamarripa has been rescheduled by VALDO at 07/02/2022 05:49 Reason: Come back last per lauren reinoso Performed By: #### C BCND #### [facility] [address] [facility] [place] [address] Hematocrit (Bld) [Volume fraction] 40.3 % Normal 37.0-47.0 [facility] Comment on above: Order Comment: Daja zamarripa has been rescheduled by VALDO at 07/02/2022 05:49 Reason: Come back last per lauren reinoso Performed By: #### C BCND #### [facility] [address] [facility] [place] [address] Hemoglobin (Bld) [Mass/Vol] 12.9 g/dL Normal 12.0-16.0 [facility] Comment on above: Order Comment: Daja ctjanie has been rescheduled by VALDO at 07/02/2022 05:49 Reason: Come back last per lauren reinoso Performed By: #### C BCND #### [facility] [address] [place] [address] MCH (RBC) [Entitic mass] 25.5 pg Low 27.0-31.3 [facility] Comment on above: Order Comment: Daja ctjanie has been rescheduled by HERAM at 07/02/2022 05:49 Reason: Come back last per rn fouzia Performed By: #### C BCND #### [facility] [address] [place] [address] MCHC 32.1 % Low 33.0-37.0 [facility] Comment on above: Order Comment: Daja ctjanie has been rescheduled by HERAM at 07/02/2022 05:49 Reason: Come back last per rn fouzia Performed By: #### C BCND #### [facility] [address] [place] [address] MCV (RBC) [Entitic vol] 79.6 fL Normal 79.4-94.8 [facility] Comment on above: Order Comment: Daja ctjanie has been rescheduled by HERAM at 07/02/2022 05:49 Reason: Come back last per rn fouzia Performed By: #### C BCND #### [facility] [address] [place] [address] Platelets (Bld) [#/Vol] 230 10*3/uL Normal 130-400 [facility] Comment on above: Order Comment: Daja zamarripa has been rescheduled by HERAM at 07/02/2022 05:49 Reason: Come back last per rn fouzia Performed By: #### C BCND #### [facility] [address] [place] [address] RBC (Bld) [#/Vol] 5.06 10*6/uL Normal 4.20-5.40 [facility] Comment on above: Order Comment: Daja ctjanie has been rescheduled by HERAM at 07/02/2022 05:49 Reason: Come back last per rn fouzia Performed By: #### C BCND #### [facility] [address] [place] [address] WBC (Bld) [#/Vol] 9.1 10*3/uL Normal 4.8-10.8 [facility] Comment on above: Order Comment: Daja zamarripa has been rescheduled by VALDO at 07/02/2022 05:49 Reason: Come back last per rn fouzia Performed By: #### C BCND #### [facility] [address] [place] [address] US DUP UPPER EXTREMITY LEFT VENOUSon 07-02-2022 [...] Jean Sifuentes MD 07/02/22 Final result Normal [facility] No evidence of DVT. [facility] RADIOLOGY EXAMINATION: VENOUS ULTRASOUND OF THE LEFT [...] normal color flow study and spectral analysis. [facility] RADIOLOGY Jean Sifuentes MD - 07/02/2022 EXAMINATION: [...] spectral analysis. IMPRESSION: No evidence of DVT. [employer] Work Phone: [employer] Phone: Radiology Study observation (narrative) [employer] Phone: XR KNEE RIGHT (1-2 VIEWS)on 07-01-2022 [...] Jean Sifuentes MD 07/01/22 Final result Normal [facility] Normal postsurgical appearance [facility] RADIOLOGY EXAMINATION: TWO XRAY VIEWS OF THE [...] are intact. Overlying surgical dee are seen [facility] RADIOLOGY Jean Sifuentes MD - 07/01/2022 EXAMINATION: [...] dee are seen IMPRESSION: Normal postsurgical appearance [employer] Work Phone: Radiology Study observation (narrative) [employer] Phone: XR KNEE RIGHT (1-2 VIEWS)Ord ered By: Jean Sifuentes on 07-01-2022 [employer] Work Phone: MRSA DNA Probe, Nasalon -0 MRSA, DNA, Nasal Negative NEG [employer] Comment on above: NEGATIVE: MRSA DNA n ot detected by nucleic acid amplification. Results should be used as an adjunct to nosocomial control efforts to identify patients needing enhanced precautions. The test is not intended to identify patients with staphylococcal infections. Results should not be used to guide or monitor treatment for MRSA infections. [employer] [address] [place] [id number] ([phone] Specimen Description Swab Ultrasound [employer] MRSA, DNA, Nasalon MRSA, DNA, Nasal Negative Normal NEG [facility] Comment on above: Result Comment: NEGA TIVE: MRSA DNA not detected by nucleic acid amplification. Results should be used as an adjunct to nosocomial control efforts to identify patients needing enhanced precautions. The test is not intended to identify patients with staphylococcal infections. Results should not be used to guide or monitor treatment for MRSA infections. [employer] [address] [place] [id number] ([phone] Performed By: #### I MRSA #### [facility] [address] [place] [address] EKG 12 LeadOrdered By: Leigh Ann Nash on 06-25-2022 Atrial Rate 73 BPM [employer] Work Phone: P [place] [address] Work Phone: P-R Interval 160 ms [employer] Work Phone: Q-T Interval 406 ms [employer] Work Phone: QRS Duration 102 ms [employer] Work Phone: QTc Calculation (Bazett) 447 ms [employer] Work Phone: R [place] 74 degrees [employer] Phone: T [place] 65 degrees [employer] Work Phone: Ventricular Rate 73 BPM [facility] [employer] Work Phone: [address] Work Phone: EKG 12 Leadon 06-25-2022 Normal sinus rhythm Incomplete right bundle branch block Confirmed by LEIGH ANN NASH ([id number]) on 06/25/2022 6:49:48 PM Leigh Ann Sumner, DO - 06/25/2022 Normal sinus rhythm Incomplete right bundle branch block Confirmed by LEIGH ANN NASH ([id number]) on 06/25/2022 6:49:48 PM [employer] Work Phone: Established Visit (Orthopaed ic Surgery)on 06-25-2022 Established Visit (Orthopaedic Surgery) Chief Complaint Pre-op RT TK-Revision 07/01/22 @ Nam History of Present Illness This patient has [...] plans on performing outpatient physical therapy at [facility] in [place]. All of the patient's questions and concerns were answered. This note was prepared using voice recognition software. The details of this note are correct and have been reviewed, and corrected to the best of my ability. Some grammatical areas may persist related to the Dragon software Merrill Alejandro PA-C . Active Problems Problems Acute pain of both knees (338.19,719.46) (M25.561,M25.562) Allergies Medication Penicillins Recorded By: Tarsha Murary; 05/18/2022 8:47:33 AM Signatures Electronically signed by : Merrill Alejandro PA-C; Jun 25 2022 2:21PM EST (Author) Normal [facility] PT Initial Evaluationon 03-0 PT Initial Evaluation [...] reviewed Visit number: 1 Requires authorization after IEAriebrendan Subjective Current Episode of Functional Impairment and/or [...] today's treatment with some difficulty. Evaluation Code: 99402 PT Eval: Low Complexity, 32 min(s). Resources provided today: education Signatures Electronically signed by : Natali Tyson, PT DPT; Jun 30 2022 10:08AM EST (Author) Normal [facility] APTTon 06-24-2022 aPTT Coag (Bld) [Time] 30.1 s YECENIA Nohelia [facility] Comment on above: Effective 02/27/2020: Heparin Therapeutic Range: 64.0 98.0 seconds. [facility] CBC With Platelet and Differ entialon 06-24-2022 Basophils (Bld) [#/Vol] 0.1 10*3/uL Normal 0.0-0.2 [facility] Comment on above: Performed By: #### C BCWD #### [facility] [address] [place] [address] Basophils/100 WBC (Bld) 0.6 % Normal [facility] Comment on above: Performed By: #### C BCWD #### [facility] [address] [place] [address] Eosinophils (Bld) [#/Vol] 0.1 10*3/uL Normal 0.0-0.7 [facility] Comment on above: Performed By: #### C BCWD #### [facility] [address] [place] [address] Eosinophils/100 WBC (Bld) 1.6 % Normal [facility] Comment on above: Performed By: #### C BCWD #### [facility] [address] [place] [address] Erythrocyte distribution width (RBC) [Ratio] 16.4 % Critically high 11.5-14.5 [facility] Comment on above: Performed By: #### C BCWD #### [facility] [address] [place] [address] Hematocrit (Bld) [Volume fraction] 44.4 % Normal 37.0-47.0 [facility] Comment on above: Performed By: #### C BCWD #### [facility] [address] [place] [address] Hemoglobin (Bld) [Mass/Vol] 14.2 g/dL Normal 12.0-16.0 [facility] Comment on above: Performed By: #### C BCWD #### [facility] [address] [place] [address] Lymphocytes (Bld) [#/Vol] 2.3 10*3/uL Normal 1.0-4.8 [facility] Comment on above: Performed By: #### C BCWD #### [facility] [address] [place] [address] Lymphocytes/100 WBC (Bld) 25.8 % Normal [facility] Comment on above: Performed By: #### C BCWD #### [facility] [address] [place] [address] MCH (RBC) [Entitic mass] 25.1 pg Low 27.0-31.3 [facility] Comment on above: Performed By: #### C BCWD #### [facility] [address] [place] [address] MCHC 32.0 % Low 33.0-37.0 [facility] Comment on above: Performed By: #### C BCWD #### [facility] [address] [place] [address] MCV (RBC) [Entitic vol] 78.5 fL Low 79.4-94.8 [facility] Comment on above: Performed By: #### C BCWD #### [facility] [address] [place] [address] Monocytes (Bld) [#/Vol] 0.8 10*3/uL Normal 0.2-0.8 [facility] Comment on above: Performed By: #### C BCWD #### [facility] [address] [place] [address] Monocytes/100 WBC (Bld) 9.4 % Normal [facility] Comment on above: Performed By: #### C BCWD #### [facility] [address] [place] [address] Neutrophils (Bld) [#/Vol] 5.6 10*3/uL Normal 1.4-6.5 [facility] Comment on above: Performed By: #### C BCWD #### [facility] [address] [place] [address] Neutrophils/100 WBC (Bld) 62.6 % Normal [facility] Comment on above: Performed By: #### C BCWD #### [facility] [address] [place] [address] Platelets (Bld) [#/Vol] 281 10*3/uL Normal 130-400 [facility] Comment on above: Performed By: #### C BCWD #### [facility] [address] [place] [address] RBC (Bld) [#/Vol] 5.66 10*6/uL Critically high 4.20-5.40 [facility] Comment on above: Performed By: #### C BCWD #### [facility] [address] [place] [address] WBC (Bld) [#/Vol] 8.9 10*3/uL Normal 4.8-10.8 [facility] Comment on above: Performed By: #### C BCWD #### [facility] [address] [place] [address] CBC with Auto Differentialon 06-24-2022 Basophils (Bld) [#/Vol] 0.1 10*3/uL 0.0 - 0.2 K/uL [facility] Basophils/100 WBC (Bld) 0.6 % [facility] [facility] Eosinophils (Bld) [#/Vol] 0.1 10*3/uL 0.0 - 0.7 K/uL [facility] Eosinophils/100 WBC (Bld) 1.6 % [facility] Hematocrit (Bld) [Volume fraction] 44.4 % 37.0 - 47.0 % [facility] Hemoglobin (Bld) [Mass/Vol] 14.2 g/dL 12.0 - 16.0 g/dL [facility] Interpretation and review of laboratory results Abnormal [facility] Lymphocytes (Bld) [#/Vol] 2.3 10*3/uL 1.0 - 4.8 K/uL [facility] Lymphocytes/100 WBC (Bld) 25.8 % [facility] MCH (RBC) [Entitic mass] 25.1 pg Low 27. 0 - 31.3 pg [facility] MCHC (RBC) [Mass/Vol] 32.0 % Low 33.0 - 37.0 % [facility] MCV (RBC) [Entitic vol] 78.5 fL Low 79.4 - 94.8 fL [facility] Monocytes (Bld) [#/Vol] 0.8 10*3/uL 0.2 - 0.8 K/uL [facility] Monocytes/100 WBC (Bld) 9.4 % B [facility] Neutrophils Absolute 5.6 K/uL 1.4 - 6 .5 K/uL [facility] Neutrophils/100 WBC (Bld) 62.6 % [facility] Platelet distribution width (Bld) [Ratio] 16.4 % High 11.5 - 14.5 % [facility] Platelets (Bld) [#/Vol] 281 10*3/uL 130 - 400 K/uL [facility] RBC (Bld) [#/Vol] 5.66 10*6/uL High [facility] WBC (Bld) [#/Vol] 8.9 10*3/uL 4.8 - 10.8 K/uL [facility] Comprehensive Metabolic Pane gretel 06-24-2022 Albumin [Mass/Vol] 4.2 g/dL Normal 3.5-4.6 [facility] Comment on above: Performed By: #### U MARIA ELENA #### [facility] [address] [place] [address] ALP [Catalytic activity/Vol] 89 U/L Normal 40-130 [facility] Comment on above: Performed By: #### U MARIA ELENA #### [facility] [address] [place] [address] ALT [Catalytic activity/Vol] 47 U/L Critically high 0-33 [facility] Comment on above: Performed By: #### U MARIA ELENA #### [facility] [address] [place] [address] Anion gap [Moles/Vol] 13 mmol/L Normal 9-15 [facility] Comment on above: Performed By: #### U MARIA ELENA #### [facility] [address] [place] [address] AST [Catalytic activity/Vol] 44 U/L Critically high 0-35 [facility] Comment on above: Performed By: #### U MARIA ELENA #### [facility] [address] [place] [address] Bilirubin [Mass/Vol] 0.5 mg/dL Normal 0.2-0.7 [facility] Comment on above: Performed By: #### U MARIA ELENA #### [facility] [address] [place] [address] Calcium [Mass/Vol] 9.2 mg/dL Normal 8.5-9.9 [facility] Comment on above: Performed By: #### U MARIA ELENA #### [facility] [address] [place] [address] Chloride [Moles/Vol] 100 mmol/L Normal 95-107 [facility] Comment on above: Performed By: #### U MARIA ELENA #### [facility] [address] [place] [address] CO2 [Moles/Vol] 26 mmol/L Normal 20-31 [facility] Comment on above: Performed By: #### U MARIA ELENA #### [facility] [address] [place] [address] Creatinine [Mass/Vol] 0.54 mg/dL Normal 0.50-0.90 [facility] Comment on above: Performed By: #### U MARIA ELENA #### [facility] [address] [place] [address] GFR >60.0 Normal >60 [facility] Comment on above: Result Comment: Myra camarac calculator link https://www.kidney.org/professionals/kdoqi/gfr_calculatorped Effective Jan 25, 2022 [...] Performed By: #### U MARIA ELENA #### [facility] [address] [place] [address] Globulin (S) [Mass/Vol] 3.9 g/dL Critically high 2.3-3.5 [facility] Comment on above: Performed By: #### U MARIA ELENA #### [facility] [address] [place] [address] Glucose [Mass/Vol] 124 mg/dL Critically high 70-99 [facility] Comment on above: Performed By: #### U MARIA ELENA #### [facility] [address] [place] [address] Potassium [Moles/Vol] 4.4 mmol/L Normal 3.4-4.9 [facility] Comment on above: Performed By: #### U MARIA ELENA #### [facility] [address] [place] [address] Protein [Mass/Vol] 8.1 g/dL Critically high 6.3-8.0 [facility] Comment on above: Performed By: #### U MARIA ELENA #### [facility] [address] [place] [address] Sodium [Moles/Vol] 139 mmol/L Normal 135-144 [facility] Comment on above: Performed By: #### U MARIA ELENA #### [facility] [address] [place] [address] Urea nitrogen [Mass/Vol] 14 mg/dL Normal 6-20 [facility] Comment on above: Performed By: #### U MARIA ELENA #### [facility] [address] [place] [address] Albumin [Mass/Vol] 4.2 g/dL 3.5 - 4.6 g/dL [facility] ALP (Bld) [Catalytic activity/Vol] 89 U/L 40 - 130 U/L [facility] ALT [Catalytic activity/Vol] 47 U/L High 0 - 33 U/L [facility] Anion gap [Moles/Vol] 13 mmol/L [facility] AST [Catalytic activity/Vol] 44 U/L High 0 - 35 U/L [facility] Bilirubin [Mass/Vol] 0.5 mg/dL 0.2 - 0 .7 mg/dL [facility] Calcium [Mass/Vol] 9.2 mg/dL 8.5 - 9.9 mg/dL [facility] Chloride [Moles/Vol] 100 mmol/L [facility] CO2 [Moles/Vol] 26 mmol/L [facility] Creatinine [Mass/Vol] 0.54 mg/dL 0.50 - 0.90 mg/dL [facility] GFR/1.73 sq M.predicted MDRD (S/P/Bld) [Vol rate/Area] 60 - PINF [facility] Comment on above: Pediatric calculator link https://www.kidney.org/professionals/kdoqi/gfr_calculatorped [...] 3.9 g/dL High 2.3 - 3.5 g/dL [facility] Glucose [Mass/Vol] 124 mg/dL High 70 - 99 mg/dL [facility] Interpretation and review of laboratory results Abnormal [facility] Potassium [Moles/Vol] 4.4 mmol/L [facility] Protein [Mass/Vol] 8.1 g/dL High 6.3 - 8.0 g/dL [facility] Sodium [Moles/Vol] 139 mmol/L [facility] Urea nitrogen (BldV) [Mass/Vol] 14 mg/dL 6 - 20 mg/dL [facility] Laboratory - Coagulationon 0 06-24-2022 INR Coag (Bld) [Relative time] 1.1 {INR} [facility] Work Phone: Laboratory - Hematology and Cell countson 06-24-2022 Basophils/100 WBC (Bld) 0.6 % [facility] Work Phone: Eosinophils/100 WBC (Bld) 1.6 % Normal [facility] Work Phone: Lymphocytes/100 WBC (Bld) 25.8 % Normal [facility] Work Phone: Monocytes/100 WBC (Bld) 9.4 % Normal [facility] Work Phone: Neutrophils/100 WBC (Bld) 62.6 % Normal [facility] Work Phone: MRSA, DNA, Nasalon 3 Specimen Description Swab Normal [facility] Comment on above: Performed By: #### I MRSA #### [facility] [address] [place] [address] Microscopic Urinalysison Bacteria, UA FEW Abnormal Negative /HPF [facility] Epithelial Cells, UA 0-2 [facility] Hyaline Casts, UA 0-1 [facility] RBC, UA 0-2 [facility] WBC, UA 3-5 [facility] No Panel Informationon 06-24 Interpretation and review of laboratory results Abnormal [facility] TRACE Abnormal Negative [facility] Work Phone: [phone] Negative Normal Negative [facility] Work Phone: [phone] 0.2 {E.U./dL} Normal < 2.0 [facility] Work Phone: [phone] 30 mg/dL Abnormal Negative [facility] Work Phone: [phone] 7.0 1 Normal 5.0-9.0 [facility] Work Phone: [phone] Not Indicated Normal [facility] Work Phone: [phone] 1.010 1 Normal 1.005-1.03 [facility] Work Phone: [phone] Clear Normal Clear [facility] Work Phone: [phone] Yellow Normal Straw/[place]ton [facility] Work Phone: [phone] 0-2 Normal 0-5 [facility] Work Phone: [phone] 3-5 Normal 0-5 [facility] Work Phone: [phone] 0-1 Normal 0-5 [facility] Work Phone: [phone] FEW Abnormal Negative [facility] Work Phone: [phone] K/uL Normal 130-400 [facility] Work Phone: [phone] 16.4 % above high threshold 11.5-14.5 [facility] Work Phone: [phone] 32.0 % below low threshold 33.0-37.0 [facility] Work Phone: [phone] 0.1 K/uL Normal 0.0-0.2 [facility] Work Phone: [phone] 0.8 K/uL Normal 0.2-0.8 [facility] Work Phone: [phone] 2.3 K/uL Normal 1.0-4.8 [facility] Work Phone: [phone] 5.6 K/uL Normal 1.4-6.5 [facility] Work Phone: [phone] 25.1 pg below low threshold 27.0-31.3 [facility] Work Phone: [phone] 78.5 fL below low threshold 79.4-94.8 [facility] Work Phone: 44.4 % Normal 37.0-47.0 [facility] Work Phone: 14.2 g/dL Normal 12.0-16.0 [facility] Work Phone: [phone] 5.66 {M/uL} above high threshold 4.20-5.40 [facility] Work Phone: [phone] 8.9 K/uL Normal 4.8-10.8 [facility] Work Phone: 14.8 {sec} Normal 12.3-14.9 [facility] Work Phone: 30.1 {sec} Normal 24.4-36.8 [facility] Work Phone: Comment on above: Effective 02/27/2020: Heparin Therapeutic Range: 64.0 ? 98.0 seconds. 4.2 g/dL Normal 3.5-4.6 [facility] Work Phone: [phone] 3.9 g/dL above high threshold 2.3-3.5 [facility] Work Phone: [phone] U/L above high threshold 0-35 [facility] Work Phone: 47 U/L above high threshold 0-33 [facility] Work Phone: 89 U/L Normal 40-130 [facility] Work Phone: 0.5 mg/dL Normal 0.2-0.7 [facility] Work Phone: 8.1 g/dL above high threshold 6.3-8.0 [facility] Work Phone: 9.2 mg/dL Normal 8.5-9.9 [facility] Work Phone: >60.0 Normal >60 [facility] Work Phone: Comment on above: Pediatric calculator [...] renal tubular secretion. 0.54 mg/dL Normal 0.50-0.90 [facility] Work Phone: 14 mg/dL Normal 6-20 [facility] Work Phone: 124 mg/dL above high threshold 70-99 [facility] Work Phone: 13 {mEq/L} Normal 9-15 [facility] Work Phone: 26 {mEq/L} Normal 20-31 [facility] Work Phone: 100 {mEq/L} Normal 95-107 [facility] Work Phone: 4.4 {mEq/L} Normal 3.4-4.9 [facility] Work Phone: 139 {mEq/L} Normal 135-144 [facility] Work [facility]: Negative Normal NEG [facility] Work Phone: Comment on above: NEGATIVE: MRSA DNA n ot detected by nucleic acid amplification. Results should be used as an adjunct to nosocomial control efforts toidentify patients needing enhanced precautions.The test is not intended to identify patients with staphylococcalinfections. Results should not be used to guide or monitor treatmentfor MRSA infections.[address] [address] ([phone] Swab Normal [facility] Work Phone: Partial Thromboplastin Timeo n 06-24-2022 aPTT Coag (Bld) [Time] 30.1 s Normal 24.4-36.8 [facility] Comment on above: Result Comment: Effe ctive 02/27/2020: Heparin Therapeutic Range: 64.0 ? 98.0 seconds. Performed By: #### U MARIA ELENA #### [facility] [address] [facility] [address] Prothrombin Timeon INR Coag (PPP) [Relative time] 1.1 {INR} Normal [facility] Comment on above: Performed By: #### P T #### [facility] [address] [facility] [address] PT Coag (PPP) [Time] 14.8 s Normal 12.3-14.9 [facility] Comment on above: Performed By: #### P T #### [facility] [address] [facility] [address] Protime-INRon 06-24-2022 INR Coag (Bld) [Relative time] 1.1 {INR} [facility] PT Coag (PPP) [Time] 14.8 s [facility] Ippies TYPE AND SCREENon 06-24-2022 ABO/Rh Negative [facility] Comment on above: @06/24/22 14:01 by Elaina FISCHER: BACK TYPE CONFIRMED IN TUBE. LMB Confirmation type ne eds to be drawn[facility]Markado Type and 3 cell Screen OB Ca ptureon 06-24-2022 Type and 3 cell Screen OB Capture PATIENT: PINKY Prince LOC: [facility] BILL# : [id number] : 1970 SEX: F ORDERED BY: GILMAR COX ORDERED : 06/24/2022 11:08 COLLECTED: 06/24/2022 11:45 ORDER : [id number] RECEIVED : 06/24/2022 11:45 Confirmation type needs to be drawn. --- TEST NAME RESULT UNITS RANGES ABN FL ST [facility] Capture A NEG F @06/24/22 14:01 by RUDY: BACK TYPE CONFIRMED IN TUBE. LMB Antibody 3 Cell Scrn Captu NEG F -- Normal [facility] Comment on above: Performed By: #### T SO3C #### [facility] [address] [facility] [address] Urinalysis with Reflex to Cu ltureon 06-24-2022 Bilirubin Urine Negative Negative [facility] Blood, Urine Negative Negative [facility] Clarity, UA Clear Clear [facility] Color, UA Yellow Straw/[place] ow [facility] Glucose, Ur Negative Negative mg/dL [facility] Ketones Ql (U) Negative Negative mg/dL [facility] Leukocyte esterase Test strip Ql (U) TRACE Abnormal Negative [facility] Nitrite, Urine Negative Negative [facility] pH, UA 7.0 5.0 - 9.0 [facility] Protein (U) [Mass/Vol] 30 mg/dL Abnormal Negative [facility] Specific [place], UA 1.010 1.005 - 1.030 [facility] Urine Reflex to Culture Not Indicated [facility] Urobilinogen, Urine 0.2 NINF [facility] Urinalysis, reflex to cultur gurinder 06-24-2022 Urine Reflexed to Culture Not Indicated Normal [facility] Comment on above: Performed By: #### U AR #### [facility] [address] [place] [address] Bilirubin Ql (U) Negative Normal Negative [facility] Comment on above: Performed By: #### U AR #### [facility] [address] [place] [address] Clarity (U) Clear Normal Clear [facility] Comment on above: Performed By: #### U AR #### [facility] [address] [place] [address] Color (U) Yellow Normal Straw/Huntington [facility] Comment on above: Performed By: #### U AR #### [facility] [address] [place] [address] Glucose Ql (U) Negative Normal Negative [facility] Comment on above: Performed By: #### U AR #### [facility] [address] [place] [address] Hemoglobin Ql (U) Negative Normal Negative [facility] Comment on above: Performed By: #### U AR #### [facility] [address] [place] [address] Ketones Ql (U) Negative Normal Negative [facility] Comment on above: Performed By: #### U AR #### [facility] [address] [place] [address] Leukocyte esterase Test strip Ql (U) TRACE Abnormal Negative [facility] Comment on above: Performed By: #### U AR #### [facility] [address] [place] [address] Nitrite Ql (U) Negative Normal Negative [facility] Comment on above: Performed By: #### U AR #### [facility] [address] [place] [address] pH (U) 7.0 [pH] Normal 5.0-9.0 [facility] Comment on above: Performed By: #### U AR #### [facility] [address] [place] [address] Protein Ql (U) 30 mg/dL Abnormal Negative [facility] Comment on above: Performed By: #### U AR #### [facility] [address] [place] [address] Specific gravity (U) [Rel density] 1.010 Normal 1.005-1.03 [facility] Comment on above: Performed By: #### U AR #### [facility] [address] [place] [address] Urobilinogen Qn (U) 0.2 {Reji'U}/dL Normal < 2.0 [facility] Comment on above: Performed By: #### U AR #### [facility] [address] [place] [address] Urine Microscopicon 06-25-19 23 Urine Bacteria FEW Abnormal Negative [facility] Comment on above: Performed By: #### U MARIA ELENA #### [facility] [address] [place] [address] Urine Epithelial Cells Auto 0-2 Normal 0-5 [facility] Comment on above: Performed By: #### U MARIA ELENA #### [facility] [address] [place] [address] Urine Hyaline Casts Auto 0-1 Normal 0-5 [facility] Comment on above: Performed By: #### U MARIA ELENA #### [facility] [address] [place] [address] Urine RBC Auto 0-2 Normal 0-5 [facility] Comment on above: Performed By: #### U MARIA ELENA #### [facility] [address] [place] [address] Urine WBC Auto 3-5 Normal 0-5 [facility] Comment on above: Performed By: #### U MARIA ELENA #### [facility] [address] [place] [address] BILATERAL KNEE COMPLT, 4 OR MORE VIEWSon 05-18-2022 BILATERAL KNEE COMPLT, 4 OR MORE VIEWS Patient Name: GEETA SHELTON STUDY: BILATERAL KNEE; COMPLT, 4 OR MORE VIEWS; ; 05/18/2022 9:07 am INDICATION: pain M25.561: Acute pain of both knees M25.562:. ACCESSION NUMBER(S): [id number] ORDERING CLINICIAN: ACOSTA SCHAFER FINDINGS: Weightbearing four [...] Electronically signed by: ACOSTA SCHAFER MD Normal [facility] Initial Visit (Orthopaedic S urgery)on 05-18-2022 Initial Visit (Orthopaedic Surgery) Diagnoses/Problems Assessed [...] voice recognition (more content not included)... Normal [facility] Radiologyon 05-18-2022 XR Knee 4 Views Normal [facility] Work Phone: Albumin [Mass/volume] in Ser um or PlasmaOrdered By: Elizabeth Alvarado on 05-07-2022 Albumin [Mass/Vol] 3.9 g/dL 3.2-5.5 [facility] Alkaline phosphatase [Enzyma tic activity/volume] in Serum or PlasmaOrdered By: Elizabeth Alvarado on 05-07-2022 ALP [Catalytic activity/Vol] 83 U/L 32-92 [facility] Aspartate aminotransferase [ Enzymatic activity/volume] in Serum or PlasmaOrdered By: Elizabeth Alvarado on 05-07-2022 AST [Catalytic activity/Vol] 56 U/L 10-42 [facility] Basophils Auto (Bld) [#/Vol] Ordered By: Elizabeth Alvarado on 05-07-2022 Basophils (Bld) [#/Vol] 0.1 10*3/uL 0.0-0.2 [facility] Basophils/100 WBC Auto (Bld) Ordered By: Eliazbeth Alvarado on 05-07-2022 Basophils/100 WBC (Bld) 0.7 % . [facility] Bilirubin.total [Mass/volume ] in Serum or PlasmaOrdered By: Elizabeth Alvarado on 05-07-2022 Bilirubin [Mass/Vol] 0.6 mg/dL 0.3-1.[address] [facility] Calcium [Mass/volume] in Ser um or PlasmaOrdered By: Elizabeth Alvarado on 05-07-2022 Calcium [Mass/Vol] 9.1 mg/dL 8.2-10.2 [facility] Carbon dioxide, total [Moles /volume] in Serum or PlasmaOrdered By: Elizabeth Alvarado on 05-07-2022 CO2 [Moles/Vol] 28.1 mmol/L 22.0-30.0 [facility] Chloride [Moles/volume] in S hugo or PlasmaOrdered By: Elizabeth Alvarado on 05-07-2022 Chloride [Moles/Vol] 100 mmol/L 95-[address] [facility] Cholesterol [Mass/volume] in Serum or PlasmaOrdered By: Elizabeth Alvarado on 05-07-2022 Cholesterol [Mass/Vol] 181 mg/dL 140-200 [facility] Comment on above: Chol less than 200 m g/dl low riskChol 201-239 mg/dl borderline riskChol 240 mg/dl and greater high risk Cholesterol in LDL Calc [Mas s/Vol]Ordered By: Elizabeth Alvarado on 05-07-2022 Cholesterol in LDL [Mass/Vol] 102 mg/dL 0-100 [facility] Comment on above: LDL ATP III CLASSIFI CATIONLDL less than 100 mg/dL OptimalLDL 100-129 mg/dL Near or above optimalLDL 130-159 mg/dL Borderline highLDL 160-189 mg/dL HighLDL greater than 189 mg/dL Very high Cholesterol in VLDL Calc [Ma ss/Vol]Ordered By: Elizabeth Alvarado on 05-07-2022 Cholesterol in VLDL [Mass/Vol] 20 mg/dL [facility] Creatinine and Glomerular fi ltration rate.predicted panel (S/P/Bld)Ordered By: Elizabeth Alvarado on 05-07-2022 Creatinine [Mass/Vol] 0.65 mg/dL 0.44-1.03 [facility] Eosinophils Auto (Bld) [#/Vo l]Ordered By: Elizabeth Alvarado on 05-07-2022 Eosinophils (Bld) [#/Vol] 0.1 10*3/uL 0.0-0.45 [facility] Eosinophils/100 WBC Auto (Bl d)Ordered By: Elizabeth Alvarado on 05-07-2022 Eosinophils/100 WBC (Bld) 1.8 % . [facility] Erythrocyte distribution wid th Auto (RBC) [Ratio]Ordered By: Elizabeth Alvarado on 05-07-2022 Erythrocyte distribution width (RBC) [Ratio] 17.8 % 11.9-15.3 [facility] Estimated glomerular filtrat ion rate (GFR) non- AmericanOrdered By: Elizabeth Alvarado on 05-07-2022 GFR/1.73 sq M.predicted among non-blacks MDRD (S/P/Bld) [Vol rate/Area] > 60 mL/Min [facility] Globulin Calc (S) [Mass/Vol] Ordered By: Elizabeth Alvarado on 05-07-2022 Globulin (S) [Mass/Vol] 3.7 g/dL [facility] Glucose [Mass/volume] in Ser um or PlasmaOrdered By: Elizabeth Alvarado on 05-07-2022 Glucose [Mass/Vol] 137 mg/dL 70-100 [facility] Comment on above: ADA recommended refe rence rangeRandom Glucose Reference Range is dependent on time and content of last meal. Glucose of more than 200 mg/dL in a nonstressed, ambulatory subject supports the diagnosis of Diabetes Mellitus. Hematocrit Auto (Bld) [Volum e fraction]Ordered By: Elizabeth Alvarado on 05-07-2022 Hematocrit (Bld) [Volume fraction] 45.4 % 34.0-46.4 [facility] Hemoglobin [Mass/volume] in BloodOrdered By: Elizabeth Alvarado on 05-07-2022 Hemoglobin (Bld) [Mass/Vol] 14.1 g/dL 11.8-15.4 [facility] Leukocytes [#/volume] correc silverio for nucleated erythrocytes in Blood by Automated counOrdered By: Elizabeth Alvarado on 05-07-2022 WBC corrected for nucl RBC Auto (Bld) [#/Vol] 7.9 10*3/uL 3.8-11.6 [facility] Lymphocytes Auto (Bld) [#/Vo l]Ordered By: Elizabeth Alvarado on 05-07-2022 Lymphocytes (Bld) [#/Vol] 2.4 10*3/uL 1.00-4.8 [facility] Lymphocytes/100 WBC Auto (Bl d)Ordered By: Elizabeth Alvarado on 05-07-2022 Lymphocytes/100 WBC (Bld) 30.9 % . [facility] MCH Auto (RBC) [Entitic mass ]Ordered By: Elizabeth Alvarado on 05-07-2022 MCH (RBC) [Entitic mass] 24.6 pg 24.7-34.3 [facility] MCHC Auto (RBC) [Mass/Vol]Or dered By: Elizabeth Alvarado on 05-07-2022 MCHC (RBC) [Mass/Vol] 31.0 g/dL 32.0-35.0 [facility] MCV Auto (RBC) [Entitic vol] Ordered By: Elizabeth Alvarado on 05-07-2022 MCV (RBC) [Entitic vol] 79.4 fL 80-100 [facility] Monocytes Auto (Bld) [#/Vol] Ordered By: Elizabeth Alvarado on 05-07-2022 Monocytes (Bld) [#/Vol] 0.7 10*3/uL 0.0-0.8 [facility] Monocytes/100 WBC Auto (Bld) Ordered By: Elizabeth Alvarado on 05-07-2022 Monocytes/100 WBC (Bld) 9.3 % . [facility] Neutrophils Auto (Bld) [#/Vo l]Ordered By: Elizabeth Alvarado on 05-07-2022 Neutrophils (Bld) [#/Vol] 4.5 10*3/uL 1.8-7.7 [facility] Neutrophils/100 WBC Auto (Bl d)Ordered By: Elizabeth Alvarado on 05-07-2022 Neutrophils/100 WBC (Bld) 57.3 % . [facility] No Panel InformationOrdered By: Elizabeth Alvarado on 05-07-2022 Estimated GFR () > 60 mL/Min [facility] Comment on above: GFR estimated refere nce range: According to KDOQI guidelines, <60 ml/min/1.73m2 is sufficient to diagnose a patient with chronic kidney disease. Pharmacy Creatinine Clearance (Chem N/A [facility] Nucleated erythrocytes [Pres ence] in Blood by Automated countOrdered By: Elizabeth Alvarado on 05-07-2022 Nucleated RBC Auto Ql (Bld) 0.1 /100{WBC} 0-0.5 [facility] Platelet mean volume Auto (B ld) [Entitic vol]Ordered By: Elizabeth Alvarado on 05-07-2022 Platelet mean volume (Bld) [Entitic vol] 9.4 fL 6.3-10.7 [facility] Platelets Auto (Bld) [#/Vol] Ordered By: Elizabeth Alvarado on 05-07-2022 Platelets (Bld) [#/Vol] 242 10*3/uL 150-450 [facility] Potassium [Moles/volume] in Serum or PlasmaOrdered By: Elizabeth Alvarado on 05-07-2022 Potassium [Moles/Vol] 4.3 mmol/L 3.5-5.1 [facility] Protein [Mass/volume] in Ser um or PlasmaOrdered By: Elizabeth Alvarado on 05-07-2022 Protein [Mass/Vol] 7.6 g/dL 6.1-7.9 [facility] RBC Auto (Bld) [#/Vol]Ordere d By: Elizabeth Alvarado on 05-07-2022 RBC (Bld) [#/Vol] 5.72 10*6/uL 3.60-5.00 [facility] Serum or plasma alanine ulloa otransferase measurement without P-5'-P (enzymatic activiOrdered By: Elizabeth Alvarado on 05-07-2022 ALT No additional P-5'-P [Catalytic activity/Vol] 61 U/L 10-60 [facility] Serum or plasma albumin/glob ulin mass ratioOrdered By: Elizabeth Alvarado on 05-07-2022 Albumin/Globulin [Mass ratio] 1.1 {ratio} [facility] Serum or plasma anion gap de terminationOrdered By: Elizabeth Alvarado on 05-07-2022 Anion gap [Moles/Vol] 11.2 mmol/L 6.0-15.0 [facility] Serum or plasma high density lipoprotein (HDL) cholesterol measurementOrdered By: Elizabeth Alvarado on 05-07-2022 Cholesterol in HDL [Mass/Vol] 58 mg/dL 35-85 [facility] Comment on above: HDL CHOL ATP-III CLA SSIFICATION Cardiovascular RiskHDL > or equal to 60 mg/dL LOWHDL < 40 mg/dL HIGH Serum or plasma total choles terol/high density lipoprotein (HDL) cholesterol mass ratOrdered By: Elizabeth Alvarado on 05-07-2022 Cholesterol.total/Choles terol in HDL [Mass ratio] 3.1 {ratio} <5.0 [facility] Sodium [Moles/volume] in Ser um or PlasmaOrdered By: Elizabeth Alvarado on 05-07-2022 Sodium [Moles/Vol] 135 mmol/L 136-146 [facility] TSH DL <= 0.005 mIU/L QnOrde red By: Elizabeth Alvarado on 01-13-2023 TSH Qn 4.21 m[IU]/L 0.45-5.33 [facility] Triglyceride [Mass/volume] i n Serum or PlasmaOrdered By: Elizabeth Alvarado on 05-07-2022 Triglyceride [Mass/Vol] 103 mg/dL 35-149 [facility] Comment on above: TRIG ATP III CLASSIF ICATIONTRIG less than 150 mg/dL NormalTRIG 150-199 mg/dL Borderline highTRIG 200-500 mg/dL High TRIG greater than 500 mg/dL Very highStandard traceable to the Center for Disease Conrtrol and Prevention (CDC) test method. Urea nitrogen [Mass/volume] in Serum or PlasmaOrdered By: Elizabeth Alvarado on 05-07-2022 Urea nitrogen [Mass/Vol] 14 mg/dL 01-15 [facility] WBC Auto (Bld) [#/Vol]Ordere d By: Elizabeth Alvarado on 05-07-2022 WBC (Bld) [#/Vol] 7.9 10*3/uL 3.8-11.6 [facility] Basophils Auto (Bld) [#/Vol] Ordered By: Tyler Villeda on 04-13-2022 Basophils (Bld) [#/Vol] 0.1 10*3/uL 0.0-0.2 [facility] Basophils/100 WBC Auto (Bld) Ordered By: Tyler Villeda on 04-13-2022 Basophils/100 WBC (Bld) 0.6 % . [facility] C reactive protein [Mass/vol ume] in Serum or PlasmaOrdered By: Tyler Villeda on 04-13-2022 CRP [Mass/Vol] 2.1 mg/dL 0.0-1.0 [facility] Eosinophils Auto (Bld) [#/Vo l]Ordered By: Tyler Villeda on 04-13-2022 Eosinophils (Bld) [#/Vol] 0.2 10*3/uL 0.0-0.45 [facility] Eosinophils/100 WBC Auto (Bl d)Ordered By: Tyler Villeda on 04-13-2022 Eosinophils/100 WBC (Bld) 2.0 % . [facility] Erythrocyte distribution wid th Auto (RBC) [Ratio]Ordered By: Tyler Villeda on 04-13-2022 Erythrocyte distribution width (RBC) [Ratio] 17.6 % 11.9-15.3 [facility] Erythrocyte sedimentation ra te by Photometric methodOrdered By: Tyler Villeda on 04-13-2022 ESR Photometric method (Bld) [Velocity] 54 mm/hr 0-29 [facility] Hematocrit Auto (Bld) [Volum e fraction]Ordered By: Tyler Villeda on 04-13-2022 Hematocrit (Bld) [Volume fraction] 44.4 % 34.0-46.4 [facility] Hemoglobin [Mass/volume] in BloodOrdered By: Tyler Villeda on 04-13-2022 Hemoglobin (Bld) [Mass/Vol] 14.3 g/dL 11.8-15.4 [facility] Leukocytes [#/volume] correc silverio for nucleated erythrocytes in Blood by Automated counOrdered By: Tyler Villeda on 04-13-2022 WBC corrected for nucl RBC Auto (Bld) [#/Vol] 8.6 10*3/uL 3.8-11.6 [facility] Lymphocytes Auto (Bld) [#/Vo l]Ordered By: Tyler Villeda on 04-13-2022 Lymphocytes (Bld) [#/Vol] 2.9 10*3/uL 1.00-4.8 [facility] Lymphocytes/100 WBC Auto (Bl d)Ordered By: Tyler Villeda on 04-13-2022 Lymphocytes/100 WBC (Bld) 33.6 % . [facility] MCH Auto (RBC) [Entitic mass ]Ordered By: Tyler Villeda on 04-13-2022 MCH (RBC) [Entitic mass] 24.9 pg 24.7-34.3 [facility] MCHC Auto (RBC) [Mass/Vol]Or dered By: Tyler Villeda on 04-13-2022 MCHC (RBC) [Mass/Vol] 32.2 g/dL 32.0-35.0 [facility] MCV Auto (RBC) [Entitic vol] Ordered By: Tyler Villeda on 04-13-2022 MCV (RBC) [Entitic vol] 77.4 fL 80-100 [facility] Monocytes Auto (Bld) [#/Vol] Ordered By: Tyler Villeda on 04-13-2022 Monocytes (Bld) [#/Vol] 0.9 10*3/uL 0.0-0.8 [facility] Monocytes/100 WBC Auto (Bld) Ordered By: Tyler Villeda on 04-13-2022 Monocytes/100 WBC (Bld) 10.0 % . [facility] Neutrophils Auto (Bld) [#/Vo l]Ordered By: Tyler Villeda on 04-13-2022 Neutrophils (Bld) [#/Vol] 4.6 10*3/uL 1.8-7.7 [facility] Neutrophils/100 WBC Auto (Bl d)Ordered By: Tyler Villeda on 04-13-2022 Neutrophils/100 WBC (Bld) 53.8 % . [facility] Nucleated erythrocytes [Pres ence] in Blood by Automated countOrdered By: Tyler Villeda on 04-13-2022 Nucleated RBC Auto Ql (Bld) 0.1 /100{WBC} 0-0.5 [facility] Platelet mean volume Auto (B ld) [Entitic vol]Ordered By: Tyler Villeda on 04-13-2022 Platelet mean volume (Bld) [Entitic vol] 9.1 fL 6.3-10.7 [facility] Platelets Auto (Bld) [#/Vol] Ordered By: Tyler Villeda on 04-13-2022 Platelets (Bld) [#/Vol] 296 10*3/uL 150-450 [facility] RBC Auto (Bld) [#/Vol]Ordere d By: Tyler Villeda on 04-13-2022 RBC (Bld) [#/Vol] 5.73 10*6/uL 3.60-5.00 [facility] WBC Auto (Bld) [#/Vol]Ordere d By: Tyler Villeda on 04-13-2022 WBC (Bld) [#/Vol] 8.6 10*3/uL 3.8-11.6 [facility] Serum or plasma follitropin measurement (units/volume)Ordered By: Elizabeth Alvarado on 12-03-2021 Follitropin Qn 18.3 m[IU]/mL [facility] Comment on above: FEMALE NORMALS (JUDIE ENOPAUSE) MID-FOLLICULAR PHASE: 3.9-8.8 mIU/mL MID-CYCLE PEAK: 4.5-22.5 mIU/mL MID-LUTEAL PHASE: 1.8-5.1 mIU/mL FEMALE NORMALS (POSTMENOPAUSE): 16.7-113.6 mIU/mL MALE NORMALS: 1.3-19.3 mIU/mL TSH DL <= 0.005 mIU/L QnOrde red By: Elizabeth Alvarado on 12-03-2021 TSH Qn 4.23 m[IU]/L 0.45-5.33 [facility] Total estrogen measurementOr dered By: Elizabeth Alvarado on 12-03-2021 Estrogen [Mass/Vol] 83 pg/mL . [facility] Comment on above: Prepubertal < 40 Female Cycle: 1-10 Days 16 - 328 11-20 Days 34 - 501 21-30 Days 48 - 350 Post-Menopausal 40 - 244 Performed at: [facility] [address] [id number] Retail Marketing Specialist: Virgie Isaac MD, Phone: [phone] Coding Summary.on 01-26-2019 Coding Summary. 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, right ankle I10 Essential (primary) hypertension J45.909 Unspecified asthma, uncomplicated K21.9 Gastro-esophageal reflux disease without esophagitis Z79.899 Other prison (current) drug therapy PYMT PROC APC STAT DESCRIPTION DOCTOR NAME DATE 25474 7110 J1 Tenotomy, percutaneous, Thuan Travis DPM 01/24/2019 Achilles tendon (separate procedure); general anesthesia RT Right side (used to identify procedures performed on the right side of the body) 82775 Anesthesia for Shahab Almanzar Jr., DO 01/24/2019 procedures on nerves, muscles, tendons, and fascia of lower leg, ankle, and foot; not otherwise specified NOTE: The code number assigned matches the documented diagnosis and / or procedure in the patient's chart. However, the narrative phrase printed from the coding software may appear abbreviated, or result in slightly different terminology. Revised Coded By: Mary Bernard Revised Date Saved: 01/26/2019 11:32 am Normal [facility] Inpatient Patient Summaryon 01-24-2019 Inpatient Patient Summary [facility] Clinical Discharge Instructions PERSON INFORMATION Name: GEETA SHELTON PHYSICIANS Admitting Physician: Thuan Travis DPM Attending Physician: Thuan Travis DPM PCP: Nichole Caballero Discharge Diagnosis: Comment: PATIENT EDUCATION INFORMATION Instructions: Post Op Patient Instructions - FT (Custom); Foot Cryocuff Patient Instructions - FT (Custom); Brown - Post Operative Instructions (Revised 12/20/13) (Custom) ([id number]) Medication Leaflets: Follow up: MEDICATION LIST Comment: Normal [facility] Lyteson 01-24-2019 Anion gap [Moles/Vol] 14 mmol/L Normal 6-16 [facility] Comment on above: Performed By: #### 2 222202, 7985386, 1216933, 47088286, 6593270, 4977335 #### [facility] Laboratory [address] [place] [address] Chloride [Moles/Vol] 107 mmol/L Normal 101-111 [facility] Comment on above: Performed By: #### 2 420653, 7181235, 9783885, 46042950, 4931027, 5741952 #### [facility] Laboratory [address] [place] [address] CO2 [Moles/Vol] 23 mmol/L Normal 21-31 [facility] Comment on above: Performed By: #### 2 173017, 6538127, 8379649, 66941619, 4808166, 8180058 #### [facility] Laboratory [address] [place] [address] Potassium [Moles/Vol] 4.9 mmol/L Normal 3.5-5.3 [facility] Comment on above: Performed By: #### 2 182679, 0476503, 3777719, 01838862, 3039425, 2336441 #### [facility] Laboratory [address] [place] [address] Sodium [Moles/Vol] 139 mmol/L Normal 135-145 [facility] Comment on above: Performed By: #### 2 668091, 5707964, 9835457, 53359097, 3274853, 3466982 #### [facility] Laboratory [address] [place] [address] Main OR Intraoperative Recor don 01-24-2019 Main OR Intraoperative Record IntraOp Document Type FT Summary Primary Physician: Thuan Travis DPM Finalized Date/Time: 01/24/19 11:33:24 Pt. Name: GEETA SHELTON/Sex: 1970 Female Med Rec #: [id number] Physician: Thuan Travis DPM Financial #: [id number] Pt. Type: A Room/Bed: [facility] Admit/Disch: 01/24/19 07:58:48 - Institution: Case Times FT Entry 1 Patient Times In Room 01/24/19 08:48:00 Out Room 01/24/19 09:26:00 Procedure Times Start 01/24/19 09:05:00 Stop 01/24/19 09:21:00 Anesthesia Times Start 01/24/19 08:48:00 Stop 01/24/19 09:26:00 Last Modified By: Maye Silverio CST 01/24/19 09:26:16 General Comments: TENEX CUTTING TIME: 01:23 Cy PRIDE RN 01/24/19 Chart opened to review and send charges Suresh Silverio CST Case Attendance FT Entry 1 Entry 2 Entry 3 Case Attendee Bhavna Vargas DPM, Thuan Stanley RN, CNOR, Cheryl Role Performed Anesthesiologist Surgeon - Primary SUPERVISOR PASTE PLANT Inspector Aluminum Boat Time In 01/24/19 08:48:00 01/24/19 09:00:00 01/24/19 [...] Zuly Duarte CST, Prashant Panda Role Performed Central Office Maintainer - Primary Central Office Maintainer - Other Scrub - Primary Time In 01/24/19 08:48:00 01/24/19 08:48:00 01/24/19 08:48:00 Time Out 01/24/19 09:26:00 01/24/19 09:26:00 01/24/19 09:26:00 Procedure PLANTAR/ACHILLES PLANTAR/ACHILLES PLANTAR/ACHILLES FASCIOTOMY TENEX(Right) FASCIOTOMY TENEX(Right) FASCIOTOMY TENEX(Right) Comments ORIENTATION Last Modified By: Jani RN, Kallie Gunter RN, Kallie Gunter RN, Kallie Ewing 01/24/19 09:26:18 01/24/19 09:26:18 01/24/19 09:26:18 Perioperative [...] Yes Time Out Bhavna Vargas, Given Participants Thaddeus SANCHEZ, Lizeth Gar RN, CNOR, Jani Luna RN, Alpa Sheikh RN, Gerald Veliz CST, Prashant Panda Time Out Complete 10/02/19 08:59:00 Outcomes Met? Yes Last Modified By: [...] Kallie Gunter RN, Brown Outcomes Met? Yes Bhavna LACKEY Schmitz RN, Zuly Joyce Last Modified By: Kallie [...] AGUILAR, CNOR, Alpa AGUILAR, Zuly Luna, Gerald PADDER CUSHION, R, Gerald QUIROZ, Prashant Panda Outcomes Met? [...] to transfer/transport General Comments: REPORT GIVEN TO CLEARING SUPERVISORRN. Cy PRIDE RN Dressing/Packing FT Pre-Care Text: [...] safely administered during the perioperative period For [employer] please see scanned medication reconcilliation form for medications used at the field during the procedure. Temperature Control Entry 1 Temperature Control BLANKET MISTRAL AIR Quantity 1 Aid TORSO [[id number]][F] Fluid/Willard Unit Mistral warming system Setting HIGH/43 Body Site Upper anterior torso Last Modified By: Kallie Gunter RN 01/24/19 08:46:43 Case Comments Finalized By: Maye Silverio CST Document Signatures Signed By: Kallie Gunter RN 01/24/19 09:26 Maye iSlverio CST 01/24/19 11:33 Normal [facility] Main OR PACU I Recordon Main OR PACU I Record PACU Phase I Docum ent Type FT Summary Primary Physician: Thuan Travis DPM Finalized Date/Time: 01/24/19 10:08:45 Pt. Name: GEETA SHELTON/Sex: 1970 Female Med Rec #: [id number] Physician: Thuan Travis DPM Financial #: [id number] Pt. Type: A Room/Bed: Admit/Disch: 01/24/19 07:58:48 [...] By: Swathi Carr RN 01/24/19 10:08 Normal [facility] Main OR PACU II Recordon Main OR PACU II Record PACU Phase II Doc ument Type FT Summary Primary Physician: Thuan Travis DPM Finalized Date/Time: 01/24/19 13:09:21 Pt. Name: GEETA SHELTON/Sex: 1970 Female Med Rec #: [id number] Physician: Thuan Travis DPM Financial #: [id number] Pt. Type: Kaylin Room/Bed: Admit/Disch: 01/24/19 07:58:48 - Institution: Case [...] By: Keeley Putnam LPN 01/24/19 13:09 Normal [facility] Main OR Preoperative Recordo n 01-24-2019 Main OR Preoperative Record PreOp Document Type FT Summary Primary Physician: Thuan Travis DPM Finalized Date/Time: 01/24/19 09:12:07 Pt. Name: GEETA SHELTON/Sex: 1970 Female Med Rec #: [id number] Physician: Thuan Travis DPM Financial #: [id number] Pt. Type: A Room/Bed: [facility]/01 Admit/Disch: 01/24/19 07:58:48 - Institution: Case Times [...] Signed By: Kallie Gunter RN 01/24/19 09:12 Normal [facility] Operative Reporton 9 Operative Report Date of Surgery: 01/24/2019 SURGEON: Thuan Travis D.P.M. PREOPERATIVE DIAGNOSIS: Contracture of right ankle with [...] first postoperative visit. Sania Pantoja Dictated: 01/24/2019 #[id number] Typed: 01/24/2019 #[id number] cc: Thuan Travis D.P.M. [facility] Comment on above: Result Comment: Elec tronically Signed By: Thuan Travsi DPM\.br\Date and Time Signed: 01/24/19 10:24 EDT Patient Education - Texton 1 Patient Education - Text (Inserted Image . Unable to display) [place], [place] Thuan Travis DPM, FACFAS POST OPERATIVE INSTRUCTIONS Keep bandage clean and [...] feel free to call the doctor at: [phone] or [phone] Travis paged. ___ Patient signature Date ___ Dr. Anand Sauer DPM, FACFAS Date Revised: 06-02 [facility] Progress Note-Physicianon Progress Note-Physician Patient: GEETA [...] 1 ml. Complications: None. Anesthesia type: General. [facility] Comment on above: Result Comment: Elec tronically Signed By: Thuan Travis DPM\.br\Date and Time Signed: 01/24/19 09:27 EDT Coding Summary.on 01-12-2019 Coding Summary. CODING DATE: 019 [facility] STATUS: Home (Routine DC) PAYOR: [...] Olivarez CphT Date Saved: 01/12/2019 11:10 am [facility] BUNon 01-11-2019 Urea nitrogen [Mass/Vol] 29 mg/dL High 5-21 [facility] Comment on above: Performed By: #### 2 983022, 9256997, 6478476, 36514422, 9996311, 2283561 #### [facility] Laboratory [address] [place] [address] CBC w/Indiceson 01-11-2019 Erythrocyte distribution width (RBC) [Ratio] 16.1 % High 10.9-14.2 [facility] Comment on above: Performed By: #### 1 9364483, 5807159, 8172721, 1009555, 5241331 #### [facility] Laboratory [address] [place] [address] Hematocrit (Bld) [Volume fraction] 42.1 % Normal 34.0-46.0 [facility] Comment on above: Performed By: #### 1 6736535, 6272034, 3853410, 0497664, 8409869 #### [facility] Laboratory [address] [place] [address] Hemoglobin (Bld) [Mass/Vol] 13.8 g/dL Normal 12.0-16.0 [facility] Comment on above: Performed By: #### 1 0247803, 1984754, 1508811, 7219791, 2968232 #### [facility] Laboratory [address] [place] [address] MCH (RBC) [Entitic mass] 25.8 pg Low 27.0-34.0 [facility] Comment on above: Performed By: #### 1 8110390, 1613838, 5705351, 5098343, 4329271 #### [facility] Laboratory [address] [place] [address] MCHC (RBC) [Mass/Vol] 32.8 g/dL Low 33.3-35.7 [facility] Comment on above: Performed By: #### 1 6912516, 3034198, 7822257, 2234756, 0527056 #### [facility] Laboratory [address] [place] [address] MCV (RBC) [Entitic vol] 78.5 fL Low 80.0-100.0 [facility] Comment on above: Performed By: #### 1 6236665, 5049388, 7321849, 5266011, 5437128 #### [facility] Laboratory [address] [place] [address] Platelet mean volume (Bld) [Entitic vol] 9.9 fL Normal 6.4-10.8 [facility] Comment on above: Performed By: #### 1 3331167, 4929939, 7115219, 1672003, 3962340 #### [facility] Laboratory [address] [place] [address] Platelets (Bld) [#/Vol] 283.0 E9/L Normal 150. 0-500. 0 [facility] Comment on above: Performed By: #### 1 5302113, 1383885, 4349914, 1566040, 6700177 #### [facility] Laboratory [address] [place] [address] RBC (Bld) [#/Vol] 5.4 E12/L Normal 4.3-5.9 [facility] Comment on above: Performed By: #### 1 4900716, 0812305, 0539166, 3300071, 6201369 #### [facility] Laboratory [address] [place] [address] WBC corrected for nucl RBC Auto (Bld) [#/Vol] 8.6 E9/L Normal 4.0-11.0 [facility] Comment on above: Performed By: #### 1 7008785, 0638271, 9761144, 9854956, 2061936 #### [facility] Laboratory [address] [place] [address] Creatinineon 01-11-2019 Creatinine [Mass/Vol] 1.0 mg/dL Normal 0.5-1.3 [facility] Comment on above: Performed By: #### 2 625164, 8985158, 2219370, 72845108, 3641734, 6211146 #### [facility] Laboratory [address] [place] [address]7084 Glucoseon 01-11-2019 Glucose [Mass/Vol] 95 mg/dL Normal 55-199 [facility] Comment on above: Performed By: #### 1 9465917, 7831047, 5135806, 6356186, 0629118 #### [facility] Laboratory [address] [place] [address] eGFRon 01-11-2019 GFR/1.73 sq M predicted among blacks MDRD (S/P/Bld) [Vol rate/Area] mL/min/{1.73_m2} Normal >=59 [facility] Comment on above: Order Comment: Order added by Discern Expert. Result Comment: eGFR is race adjusted. AA=. Performed By: #### 2 587096, 4967630, 0598325, 88244029, 0848280, 9003102 #### [facility] Laboratory [address] [place] [address] GFR/1.73 sq M predicted among non-blacks MDRD (S/P/Bld) [Vol rate/Area] 59 mL/min/1.73 m2 Normal >=59 [facility] Comment on above: Order Comment: Order added by Discern Expert. Result Comment: Check Embosser stefanie kidney disease could be indicated at eGFR's of less than 60 mL/min/1.73m2. Kidney failure is indicated at less than 15 mL/min/1.73m2. Performed By: #### 2 404326, 2302927, 8103425, 21159134, 0376471, 6673025 #### [facility] Laboratory [address] [place] [address] Coding Summary.on 12-15-2018 Coding Summary. CODING DATE: 019 FINAL [facility] STATUS: Home (Routine DC) PAYOR: Medicare [...] CphT Date Saved: 12/15/2018 01:36 pm Normal [facility] BUNon 12-14-2018 Urea nitrogen [Mass/Vol] 19 mg/dL Normal 5-21 [facility] Comment on above: Performed By: #### 2 912745, 1942195, 4280814, 08629991, 5976231, 8057262 #### [facility] Laboratory [address] [place] [address] CBC w/Indiceson 12-14-2018 Erythrocyte distribution width (RBC) [Ratio] 17.1 % High 10.9-14.2 [facility] Comment on above: Performed By: #### 2 483493, 0202370, 3562352, 57620554, 8296060, 2760381 #### [facility] Laboratory [address] [place] [address] Hematocrit (Bld) [Volume fraction] 41.5 % Normal 34.0-46.0 [facility] Comment on above: Performed By: #### 2 338060, 1994162, 5691084, 25831159, 3434854, 8331534 #### [facility] Laboratory [address] [place] [address] Hemoglobin (Bld) [Mass/Vol] 13.2 g/dL Normal 12.0-16.0 [facility] Comment on above: Performed By: #### 2 669499, 9774754, 5823241, 11624994, 2632719, 3540582 #### [facility] Laboratory [address] [place] [address] MCH (RBC) [Entitic mass] 25.0 pg Low 27.0-34.0 [facility] Comment on above: Performed By: #### 2 842132, 5923303, 2256577, 35300657, 9019992, 8654263 #### [facility] Laboratory [address] [place] [address] MCHC (RBC) [Mass/Vol] 31.7 g/dL Low 33.3-35.7 [facility] Comment on above: Performed By: #### 2 553361, 6179606, 2587344, 55776811, 3252283, 4875671 #### [facility] Laboratory [address] [place] [address] MCV (RBC) [Entitic vol] 78.7 fL Low 80.0-100.0 [facility] Comment on above: Performed By: #### 2 024109, 4628047, 6470696, 04899752, 0821054, 6065252 #### [facility] Laboratory [address] [place] [address] Platelet mean volume (Bld) [Entitic vol] 9.4 fL Normal 6.4-10.8 [facility] Comment on above: Performed By: #### 2 033981, 4358395, 9555169, 98963271, 4075253, 4927934 #### [facility] Laboratory [address] [place] [address] Platelets (Bld) [#/Vol] 268.0 E9/L Normal 150. 0-500. 0 [facility] Comment on above: Performed By: #### 2 646120, 1350761, 7088039, 81907906, 3529366, 0012904 #### [facility] Laboratory [address] [place] [address] 11638 RBC (Bld) [#/Vol] 5.3 E12/L Normal 4.3-5.9 [facility] Comment on above: Performed By: #### 2 128597, 5988850, 3150658, 05979548, 5982940, 6253351 #### [facility] Laboratory [address] [place] [address] [id number] WBC corrected for nucl RBC Auto (Bld) [#/Vol] 10.6 E9/L Normal 4.0-11.0 [facility] Comment on above: Performed By: #### 2 [id number], [id number], [id number], [id number], [id number] #### [facility] Laboratory [address] [place] [address] Creatinineon 12-14-2018 Creatinine [Mass/Vol] 0.7 mg/dL Normal 0.5-1.3 [facility] Comment on above: Performed By: #### 2 [id number], [id number], [id number], [id number], [id number], [id number] #### [facility] Laboratory [address] [place] [address] Glucoseon 12-14-2018 Glucose [Mass/Vol] 138 mg/dL Normal 55-199 [facility] Comment on above: Performed By: #### 2 [id number], [id number], [id number], [id number], [id number], [id number] #### [facility] Laboratory [address] [place] [address] Lyteson 12-14-2018 Anion gap [Moles/Vol] 17 mmol/L High 6-16 [facility] Comment on above: Performed By: #### 2 [id number], [id number], [id number], [id number], [id number], [id number] #### [facility] Laboratory [address] [place] [address] Chloride [Moles/Vol] 95 mmol/L Low 101-111 [facility] Comment on above: Performed By: #### 2 [id number], [id number], [id number], [id number], [id number], [id number] #### [facility] Laboratory [address] [place] [address] CO2 [Moles/Vol] 26 mmol/L Normal 21-31 [facility] Comment on above: Performed By: #### 2 [id number], 3184239, [id number], [id number], [id number], [id number] #### [facility] Laboratory [address] [place] [address] Potassium [Moles/Vol] 3.9 mmol/L Normal 3.5-5.3 [facility] Comment on above: Performed By: #### 2 [id number], 5116110, [id number], [id number], 0629262, [id number] #### [facility] Laboratory [address] [place] [address] Sodium [Moles/Vol] 134 mmol/L Low 135-145 [facility] Comment on above: Performed By: #### 2 [id number], [id number], 6500250, 31986273, 3166265, [id number] #### [facility] Laboratory [address] [place] [address] XR Chest 2 Viewson 9 XR Chest [...] Lyric Green MD Transcribed by: MAGEN Technologist: CC Normal [facility] eGFRon 12-14-2018 GFR/1.73 sq M predicted among blacks MDRD (S/P/Bld) [Vol rate/Area] mL/min/{1.73_m2} Normal >=59 [facility] Comment on above: Order Comment: Order added by Discern Expert. Result Comment: eGFR is race adjusted. AA=. Performed By: #### 2 [id number], [id number], [id number], [id number], [id number], [id number] #### [facility] Laboratory [address] [place] [address] GFR/1.73 sq M predicted among non-blacks MDRD (S/P/Bld) [Vol rate/Area] mL/min/{1.73_m2} Normal >=59 [facility] Comment on above: Order Comment: Order added by Discern Expert. Result Comment: Check Embosser stefanie kidney disease could be indicated at eGFR's of less than 60 mL/min/1.73m2. Kidney failure is indicated at less than 15 mL/min/1.73m2. Performed By: #### 2 [id number], [id number], [id number], [id number], [id number], [id number] #### [facility] Laboratory [address] [place] [address] Vital Signs Date Time Vital Sign Value Performing Clinician Facility 09-30-2023 09:36-0400 Body height 165.[address] [facility] 09-30-2023 09:36-0400 Body mass index (BMI) [Ratio] 46.2 kg/m2 PHYSICIAN NO [facility] 09-30-2023 09:36-0400 Body temperature 97.6 [degF] PHYSICIAN NO [facility] 09-30-2023 09:36-0400 Body weight 126.[address] [facility] 09-30-2023 09:36-0400 Diastolic blood pressure 85 mm[Hg] PHYSICIAN NO [facility] 09-30-2023 09:36-0400 Heart rate 87 /min PHYSICIAN NO [facility] 09-30-2023 09:36-0400 Respiratory rate 20 /min PHYSICIAN NO [facility] 09-30-2023 09:36-0400 SaO2% (BldA) [Mass fraction] 98 % PHYSICIAN NO [facility] 09-30-2023 09:36-0400 Systolic blood pressure 139 mm[Hg] PHYSICIAN NO [facility] 03-02-2023 10:45-0500 Body height 165.1 cm Tyler Jean Other [employer] Other 03-02-2023 10:45-0500 Body mass index (BMI) [Ratio] 44.76 kg/m2 Tyler Jean Other [employer] Other 03-02-2023 10:45-0500 Body temperature 96.7 [degF] Tyler Jean Other [employer] Other 03-02-2023 10:45-0500 Body weight 122.02 kg Tyler Jean Other [employer] Other 03-02-2023 10:45-0500 Diastolic blood pressure 82 mm[Hg] Tyler Mcnamaratyler Other [employer] Other 03-02-2023 10:45-0500 Respiratory rate 18 /min Tyler Mcnamaratyler Other [employer] Other 03-02-2023 10:45-0500 SaO2% (BldA) [Mass fraction] 96 % Tyler Mcnamaratyler Other [employer] Other 03-02-2023 10:45-0500 Systolic blood pressure 136 mm[Hg] Tyler Ted Other [facility] [employer] Other 09-21-2022 09:11-0400 Body weight 128.72 kg [employer] Elizabeth Myerholtz Work Phone: [facility] 09-21-2022 09:11-0400 Diastolic blood pressure 91 mm[Hg] [employer] Elizabeth Myerholtz Work Phone: [facility] 09-21-2022 09:11-0400 Heart rate 88 /min [employer] Elizabeth Myerholtz Work Phone: [facility] 09-21-2022 09:11-0400 Respiratory rate 20 /min [employer] Elizabeth Myerholtz Work Phone: [facility] 09-21-2022 09:11-0400 SaO2% (BldA) [Mass fraction] 96 % [employer] Elizabeth Myerholtz Work Phone: [facility] 09-21-2022 09:11-0400 Systolic blood pressure 145 mm[Hg] [employer] Elizabeth Myerholtz Work Phone: [facility] 08-16-2022 13:57-0400 Body temperature 98 [degF] [employer] Elizabeth Myerholtz Work Phone: [facility] 08-16-2022 13:42-0400 Body height 165.1 cm RHEA Alvarado Work Phone: [facility] 07-03-2022 08:14-0500 Body temperature 97.9 [degF] Acosta Schafer MD Work Phone: [facility] [employer] [facility] [employer] 07-03-2022 08:14-0500 Diastolic blood pressure 70 mm[Hg] Acosta Schafer MD Work Phone: [employer] [facility] [facility] 07-03-2022 08:14-0500 Heart rate 83 /min Acosta Schafer MD Work Phone: [facility] 07-03-2022 08:14-0500 Respiratory rate 18 /min Acosta Schafer MD Work Phone: [facility] [employer] 07-03-2022 08:14-0500 SaO2% (BldA) [Mass fraction] 98 % Acosta Schafer MD Work Phone: [employer] [facility] [facility] 07-03-2022 08:14-0500 Systolic blood pressure 129 mm[Hg] Acosta Schafer MD Work Phone: [facility] 07-02-2022 09:45-0500 Body mass index (BMI) [Ratio] 50.66 kg/m2 Acosta Schafer MD Work Phone: [employer] [facility] 07-02-2022 09:45-0500 Body weight 129.73 kg Acosta Schafer MD Work Phone: [employer] [facility] 06-24-2022 11:20-0500 Body height 160 cm Juan Rn [employer] [facility] 06-24-2022 11:20-0500 Body mass index (BMI) [Ratio] 50.79 kg/m2 Juan Rn [facility] 06-24-2022 11:20-0500 Body temperature 97.9 [degF] Juan Rn [facility] [employer] 06-24-2022 11:20-0500 Body weight 130.05 kg Juan Rn JULIO DAMIR [facility] 06-24-2022 11:20-0500 Diastolic blood pressure 87 mm[Hg] Mloz Rn JULIO [facility] 06-24-2022 11:20-0500 Heart rate 73 /min Mloz Rn JULIO REICH [facility] 06-24-2022 11:20-0500 Respiratory rate 16 /min Mloz Rn JULIO DAMIR [facility] 06-24-2022 11:20-0500 SaO2% (BldA) [Mass fraction] 98 % Mloz Rn JULIO [facility] 06-24-2022 11:20-0500 Systolic blood pressure 142 mm[Hg] Mloz Rn JULIO [facility] 05-18-2022 08:46-0500 Body height 165.1 cm Acosta Schafer MD Work Phone: [facility] Work Phone: 05-18-2022 08:46-0500 Body mass index (BMI) [Ratio] 45.93 kg/m2 Acosta Schafer MD Work Phone: [facility] Work Phone: 05-18-2022 08:46-0500 Body surface area Derived from formula 2.27 m2 Acosta Schafer MD Work Phone: [facility] Work Phone: 05-18-2022 08:46-0500 Body weight 125.19 kg Acosta Schafer MD Work Phone: [facility] Work Phone: Encounters Encounter Date Encounter Type Care Provider Facility Start: 09-30-2023 End: 09-30-2023 ambulatory PHYSICIAN NO [facility] Work Phone: Start: 09-30-2023 End: 09-30-2023 Patient encounter procedure PHYSICIAN NO [facility] Physician [facility] Ambulatory Work Phone: Start: 09-30-2023 Registered Recurring PHYSICIAN AKASH [facility] [place] [facility] Work Phone: Start: 09-30-2023 ambulatory Lorrie Baig Facility: [facility] Start: 09-07-2023 End: 09-07-2023 Patient encounter procedure PHYSICIAN AKASH CH [facility] [place] Work Phone: Start: 09-07-2023 End: 09-07-2023 ambulatory Elizabeth Alvarado Facility:[facility] Start: 08-24-2023 End: 08-24-2023 Patient encounter procedure [employer] Elizabeth Alvarado Work Phone: [facility] Start: 08-24-2023 End: 08-24-2023 ambulatory Elizabeth Alvarado [facility] Work Phone: Start: 08-24-2023 End: 08-24-2023 Departed Referred [employer] Elizabeth Alvarado Work Phone: [facility] Start: 05-10-2023 End: 05-10-2023 Patient encounter procedure [employer] Elizabeth Alvarado Work Phone: [facility] Work Phone: Start: 05-10-2023 End: 05-10-2023 ambulatory [employer] Elizabeth Alvarado Work Phone: [facility] Work Phone: Start: 03-02-2023 End: 03-02-2023 ambulatory Tyelr Jean Other [employer] Other Start: 03-02-2023 Office outpatient vi sit 25 minutes Tyler Jean [facility] Start: 02-14-2023 End: 02-14-2023 ambulatory [employer] Elizabeth Alvarado Work Phone: [facility] Work Phone: Start: 02-14-2023 End: 02-14-2023 Patient encounter procedure RHEA Alvarado Work Phone: [facility] [place] Work Phone: Start: 01-26-2023 [facility] visit new patient Sindy rubio [facility] Start: 01-26-2023 End: 01-26-2023 ambulatory RHEA Alvarado Work Phone: [employer] Other Start: 01-26-2023 End: 01-26-2023 Patient encounter procedure RHEA Alvarado Work Phone: [facility] [place] Work Phone: Start: 12-29-2022 Patient encounter procedure Acosta Schafer MD Work Phone: [facility] Work Phone: Start: 12-29-2022 ambulatory Provider Pending Facili ty:[id number] Start: 11-25-2022 End: 11-25-2022 Patient encounter procedure RHEA Alvarado Work Phone: [facility]Respiratory Therapy Work Phone: Start: 09-22-2022 Patient encounter procedure Acosta Schafer MD Work Phone: [facility] Work Phone: Start: 09-22-2022 ambulatory Provider Pending Facili ty:[id number] Start: 09-21-2022 End: 09-21-2022 ambulatory RHEA Alvarado Work Phone: [facility] Work Phone: Start: 09-21-2022 End: 09-21-2022 Registered Recurring RHEA Alvarado Work Phone: [facility] Center Work Phone: Start: 08-11-[address] Acosta Schafer Facility:[id number] Start: 08-04-2022 End: 08-04-2022 Discharged Recurring RHEA Fraserjackie Alvarado Work Phone: [facility]-Physical Therapy [address] Start: 07-23-2022 End: 07-23-2022 ambulatory RHEA Hurley Christiano Work Phone: [facility] Work Phone: Start: 07-23-2022 End: 07-23-2022 Patient encounter procedure RHEA Johnson Christiano Work Phone: [facility] [place] Work Phone: Start: 07-16-2022 Telephone encounter Acosta Crews MD Work Phone: [facility] Work Phone: Start: 07-14-2022 Patient encounter procedure Acosta Schafer MD Work Phone: [facility] Work Phone: Start: 07-14-[address] Acosta Alva yaneli Byron Facility:[id number] Start: 07-07-2022 AUDIT Acosta sow MD Work Phone: [facility] Work Phone: Start: 07-01-2022 ambulatory Provider Pending Facili ty:[id number] Start: 07-01-2022 End: 07-03-2022 Evaluation and management of inpatient ACOSTA SCHAFER [facility] Start: 07-01-2022 SURGNONUH, Provider: Acosta Schafer, Status: Pen, Time: 7:00 AM Natali Tyson PT, DPT Work Phone: [facility] Work Phone: Start: 07-01-2022 End: 07-03-2022 Evaluation and management of inpatient Acosta Schafer MD Work Phone: [facility] Comment on above: 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 Merrill Rawls as [facility] Facility:[id number] Start: 06-25-2022 Encounter for other preprocedural examination Mr. Merrill Hernandez Sargent II [facility] Start: 06-24-2022 End: 06-29-2022 ambulatory ACOSTA SCHAFER [facility] Start: 06-24-2022 End: 06-28-2022 Subsequent hospital visit by physician Juan Mott 2 Rn [facility] Pre-Admission Testing Start: 05-18-2022 Patient encounter procedure Acosta Schafer MD Work Phone: [facility] Work Phone: Start: 05-18-[address] Acosta Subramanianfield Facility:[id number] Start: 05-07-2022 End: 05-07-2022 Patient encounter procedure RHEA Alvarado Work Phone: [facility]Electro[facility] Work Phone: Start: 04-13-2022 End: 04-13-2022 ambulatory RHEA Alvarado Work Phone: [facility] Work Phone: Start: 04-13-2022 End: 04-13-2022 Patient encounter procedure RHEA Alvarado Work Phone: [facility] [place] Start: 12-17-2021 End: 12-17-2021 Patient encounter procedure RHEA Alvarado Work Phone: [facility] [place] Start: 12-07-2021 End: 12-07-2021 Patient encounter procedure RHEA Alvarado Work Phone: [facility] [place] Start: 12-03-2021 End: 12-03-2021 Departed Referred RHEA Alvarado Work Phone: [facility] Procedures Date Procedure Procedure Detail Performing Clinician Start: 09-07-2023 Pelvic echography PHYSI CHIQUI NO FAMILY Start: 09-07-2023 Transvaginal echography PHYSICIAN NO FAMILY Start: 05-10-2023 Screening mammograph y of bilateral breasts RHEA Morinbijupaula Work Phone: Start: 02-14-2023 Duplex scan of lower limb veins RHEA Morinbijupaula Work Phone: Start: 01-26-2023 Plain chest X-ray RHEA Morinbijupaula Work Phone: Start: 07-03-2022 BASIC METABOLIC PANE L W/ REFLEX TO MG FOR LOW K Arya Coronado [employer] - [facility] Work Phone: Start: 07-03-2022 Blood count complete automated Arya Coronado [employer] - [facility] Work Phone: Start: 07-02-2022 Dup-scan xtr veins unilateral/limited study Carlos A Hou DO Work Phone: Start: 07-02-2022 BASIC METABOLIC PANE L W/ REFLEX TO MG FOR LOW K Arya Coronado [employer] - [facility] Work Phone: Start: 07-02-2022 Blood count complete automated Arya Coronado [employer] - [facility] Work Phone: Start: 07-01-2022 Radiologic examinati on knee 1/2 views Adjyoan Coronado [employer] - [facility] Work Phone: Start: 07-01-2022 End: 07-01-2022 [...] Start: 12-17-2021 Radionuclide three-p hase bone study [employer]helia Alvarado Work Phone: Start: 12-07-2021 US scan of thyroid RHEA Alvarado Work Phone: Start: 02-01-2019 Anesthesia consultation Start: 01-24-2019 Anesthesia consultation Plan of Treatment Date Care Activity Detail Author Start: 06-29-2023 FUV, Provider: Acosta Schafer, Status: Pen, Time: 2:15 PM FUV, Provider: Acosta Schafer, Status: Pen, Time: 2:15 PM [facility] [facility] Work Phone: Start: 02-17-2023 Screening for malign ant neoplasm of colon [facility] Start: 12-29-2022 FUV, Provider: Acosta Schafer, Status: Pen, Time: 1:45 PM FUV, Provider: Acosta Schafer, Status: Pen, Time: 1:45 PM [facility] [facility] [place] Work Phone: Start: 08-11-2022 FUV, Provider: Acosta Schafer, Status: Pen, Time: 9:45 AM FUV, Provider: Acosta Schafer, Status: Pen, Time: 9:45 AM [facility] [place] Work Phone: Start: 07-23-2022 [facility] Start: 07-14-2022 POV, Provider: Acosta Schafer, Status: Pen, Time: 9:00 AM POV, Provider: Acosta Schafer, Status: Pen, Time: 9:00 AM [facility] [place] Work Phone: Start: 07-01-2022 End: 07-01-2022 Admission to same day surgery center 07/01/2022 Surgery IP Unit Acosta Schafer MD [id number] [place] [address] RIGHT KNEE RIGHT TOTAL KNEE REVISION INSTRUMENTATION [employer] [facility] Comment on above: RIGHT KNEE RIGHT TOT AL KNEE REVISION INSTRUMENTATION [employer] Start: 07-01-2022 End: 07-01-2022 Revj total knee arthrp w/wo algrft 1 component KNEE TOTAL ARTHROPLASTY REVISION Loosening of unicondylar knee replacement (HCC) 07/01/2022 10:50 AM [facility] Start: 07-01-2022 Subsequent hospital visit by physician 07/01/2022 Hospital Encounter IP Unit Acosta Schafer MD [address] [place] [address] [facility] [place] Start: 07-01-2022 [facility]: Acosta Schafer, Status: Pen, Time: 7:00 AM [facility] Provider: Acosta Schafer, Status: Pen, Time: 7:00 AM [facility] [place] Work Phone: Start: 06-25-2022 PREADMIT, Provider: Merrill Alejandro, Status: Pen, Time: 1:45 PM PREADMIT, Provider: Merrill Alejandro, Status: Pen, Time: 1:45 PM [facility] [place] Work Phone: Start: 06-25-2022 [id number], Provider : Natali Tyson, Status: Pen, Time: 1:00 PM [id number], Provider: Natali Tyson, Status: Pen, Time: 1:00 PM [facility] [place] Work Phone: Start: 06-24-2022 Annual Wellness Visi t (AWV) Annual Wellness Visit (AWV) [facility] Start: 12-17-2021 Radionuclide three-p hase bone study NM bone 3 phase [facility] Start: 12-17-2021 End: 12-17-2021 Patient encounter procedure Departed [facility] [place] Start: 12-07-2021 US scan of thyroid US thyroid [facility] Start: 12-07-2021 End: 12-07-2021 Patient encounter procedure Departed [facility] [place] Start: 11-23-2021 Influenza vaccination Flu vaccine (# 1) [facility] [employer] Start: 05-18-2021 COVID-19 Vaccine (4 - Booster for Moderna series) COVID-19 Vaccine (4 - Booster for Moderna series) [facility] Start: 02-23-2018 Screening for malign ant neoplasm of breast Breast cancer screen [facility] Start: 02-23-2018 Shingles vaccine (1 of 2) Shingles v accine (1 of 2) [facility] [employer] Start: 02-23-2013 Screening for malign ant neoplasm of colon [facility] Start: 2008 Lipid panel Lipids [facility] [employer] [facility] Start: 02-23-2003 Diabetes screen Diabetes screen [facility] Start: 02-23-1998 Screening for malign ant neoplasm of cervix [facility] Start: 02-23-1989 Screening for malign ant neoplasm of cervix Pap smear [facility] Start: 02-23-1987 DTaP/Tdap/Td vaccine (1 - Tdap) DTaP/Tdap/Td vaccine ( - Tdap) [facility] Start: 02-23-1986 Hepatitis C screening Hepatitis C sc reen [facility] Start: 02-23-1983 HIV screening HIV screen [facility] Start: 1980 Depression Screen Depression Screen [facility] [employer] Start: 1968 COVID-19 Vaccine (#1) COVID-19 Vacci ne (#1) [facility] [employer] End: 07-04-2022 Basic Metabolic Panel w/ Reflex to MG Basic Metabolic Panel w/ Reflex to MG Lab Routine Daily for 3 Days starting 07/02/2022 until 07/04/2022, 2 completed [facility] [employer] Phone: Comment on above: Daily for 3 Days sta rting 07/02/2022 until 07/04/2022, 2 completed End: 07-04-2022 CBC panel - Blood by Automated count CBC Lab Routine Daily for 3 Days starting 07/02/2022 until 07/04/2022, 2 completed [employer] [facility] [employer] Phone: Comment on above: Daily for 3 Days sta rting 07/02/2022 until 07/04/2022, 2 completed Comprehensive metabo lic 2000 panel - Serum or Plasma [facility] Comprehensive metabo lic 2000 panel - Serum or Plasma [facility] IgA [Mass/volume] in Serum or Plasma [facility] IgG [Mass/volume] in Serum or Plasma [facility] IgM [Mass/volume] in Serum or Plasma [facility] Oxygen therapy [[facility] Data Set] Initiate Oxygen Therapy Protocol Respiratory Care Routine Daily until discontinued starting 07/01/2022 [facility] [employer] Phone: Comment on above: Daily until disconti nued starting 07/01/2022 Spirometry panel Incentive tonja metry Respiratory Care Routine Every 2hr while awake until discontinued starting 07/01/2022 [facility] [employer] Phone: Comment on above: Every 2hr while awak e until discontinued starting 07/01/2022 [facility] Immunizations Immunization Date Immunization Notes Care Provider Maria T otoole 03-16-2016 influenza virus vaccine, unspecified formulation RHEA Alvarado Work Phone: [facility] 03-16-2016 influenza, injectabl e, quadrivalent, preservative free Sindy Davila Other [facility] [employer] Other Payers Date Payer Category Payer Private Health Insurance [id number] 2022 Medicaid [id number] Medicare [id number] 2022 Private Health Insurance [id number] 2022 Self-pay [id number] 2014 Private Health Insurance [id number] 1968 Unknown [id number] 2.16.840.1.920553.3.579.2. 182 1970 Unknown [id number] 2.16.840.1.193739.3.579.2. 182 1970 Unknown [id number] 2.16.840.1.661245.3.579.2. 356 1970 Unknown [id number] 2.16.840.1.057578.3.579.2. 8 1968 Unknown [id number] 2.16.840.1.780180.3.579.2. 1067 1970 Unknown [id number] 2.16.840.1.626713.3.579.2. 1068 1970 Unknown [id number] 2.16.840.1.799523.3.579.2. 1067 1968 Unknown [id number] 2.16.840.1.052309.3.579.2. 1068 1970 Unknown [id number] 2.16.840.1.628651.3.579.2. 1068 1970 Unknown [id number] 2..840.1.491581.3.579.2. 1068 Medicare [id number] Medicare [place] [employer] Dual Adv JRG [id number] Unknown [facility] DUAL COMPLETE Unknown [id number] 2.16.840.1.157611.3.579.2. 531 Unknown [id number] 2.16.840.1.669619.3.579.2. 531 Unknown [id number] 2.16.840.1.932442.3.579.2. 531 Unknown [id number] 2.16.840.1.500146.3.579.2. 531 Unknown [id number] 2.16.840.1.677319.3.579.2. 531 Social History Date Type Detail Facility Start: 06-03-2017 End: 09-21-2022 Tobacco smoking status NHIS Never smoked tobacco (finding) [facility] Start: 1970 Sex Assigned At Female F [facility] Start: 06-24-2022 Tobacco use and exposure Smokeless tobacco non-user [employer] Phone: Start: 06-24-2022 End: 07-02-2022 Alcohol intake Current drinker of alcohol (finding) [employer] Phone: Start: 06-24-2022 Alcohol Comment occasional [facility] [employer] Phone: Start: 1970 Sex Assigned At Not on file B ON [employer] Phone: Start: 06-14-2022 End: 06-24-2022 Exposure to SARS-CoV-2 (event) Not sure [employer] Phone: Sex Assigned At Sex Assigned At [facility] [employer] Other Medical Equipment Procedure Code Equipment Code Equipment Origin al Text Equipment Identifier Dates Cement Bioprep S t - [id number] Start: 07-01-2022 Stem Tib [id number] [id number] Knee Tot Stbl Joey Roberta Triathlon - [id number] , [id number] FDA Start: 07-01-2022 Clinical Notes [...] of both lower extremities (ICD-10 - I87.303) [employer] Other 10-04-2023 Evaluation note* Encounter Date Diagnosis [...] Bilateral lower extremity edema (ICD-10 - R60.0) [employer] Other 04-24-2023 Consult note [facility] August 16, 2022 3:19pm Note Date/Time August 16, 2022 2:2 0pm [facility] at [address] [address] Hem/Onc Consult Note - OP Signed Patient: Geeta Shelton MR#: [id number] : 1970 Acct:[id number] Age/Sex: 52 / F Type: REG RCR Copies to: Elizabeth Alvarado APRN,HOGSHEAD PRESS OPERATOR Lorrie Baig DO~ HPI Date/Time of Service: Date of Service: 08/16/2022 Time of Service: 14:19 Referring Provider/PCP: Referring Provider: Lorrie Baig DO PCP: Elizabeth Alvarado APRN, METALLURGICAL ENGINEER-C - History of Present Illness Reason for [...] and/or blood disorder. No history of thrombosis. [facility] - Medical History Medical History: Medical History [...] Additional comments: Patient: Geeta Shelton MR#: [id number] : 1970 Acct:[id number] Age/Sex: 51 / F ADM Date: 2 Loc: [place] Room: Type: [facility] Attending Dr: Tyler Villeda PA-C Copies to: CARLI Noyola Jeffrey S DO~ Ordering Provider: Tyler Villeda PA-C Date of Service: 12/17/21 [facility] bone 3 phase: M25.562, M25.561 Nuclear medicine [...] the knee hardware bilaterally. This may bepostsurgical. [place] bone 3 phase IMPRESSION: Intense uptake of [...] for coordination of care (as documented) and cgaa-nw-roww counseling of patient and/or family. Dictated By: Zoey Ramirez APRN DD/ 1419 Signed By: <Electronically signed by RHEA Ramirez> 08/16/22 1519 [facility] Work Phone: 1(935) 620-721903-11-2023 History of Present illness Narrative* Sosa Poon [...] tape after removal as ordered. Patient has [facility] set up. Knee immobilizer sent with [...] Therapy Med Surg Daily Treatment Note Facility/Department: [facility] 2W ORTHO TELE [facility]: Geeta Shelton : 1970 (52 [...] BLOCK-DEMETRIA performed [place] Acosta Schafer [place] [facility] [place] Chart Reviewed: Yes Restrictions: Restrictions/Precautions: Fall [...] Recommendations: Continue to assess pending progress Goals Loan Clerk Goals Loan Clerk Goal 1: Bed mobility with indep Loan Clerk Goal 2: Functional transfes with indep Loan Clerk Goal 3: Amb 50ft with 2ww and indep Loan Clerk Goal 4: 4 steps with handrail and SBA Loan Clerk Goal 5: indep with HEP to improve [...] Therapy Med Surg Daily Treatment Note Facility/Department: [address] ORTHO TELE Room: [place] [address] NAME: Geeta Shelton : 1970 (52 y.o.) [...] Recommendations: Continue to assess pending progress Goals Loan Clerk Goals Intermediate Goal 1: Bed mobility with indep Loan Clerk Goal 2: Functional transfes with indep Intermediate Goal 3: Amb 50ft with 2ww and indep Intermediate Goal 4: 4 steps with handrail and SBA Loan Clerk Goal 5: indep with HEP to improve LE strength and ROM Patient Goals Patient Goals : to go home PLAN General Plan: 2 times a day 7 days a week Safety Devices Type of Devices: All fall risk precautions in place, Call light within reach, Left in bed, Bed alarm in place, Nurse notified [facility] (6 CLICK) BASIC MOBILITY AM-PAC Inpatient Mobility Raw Score : 17 Therapy Time Individual Time In 944 Time Out 1025 Minutes 40 BM/trsf- 10 [...] to accomplish the task * Arya Coronado, BLOCKER AND POLISHER GOLD WHEEL - HOGSHEAD PRESS OPERATOR - 07/02/2022 9:49 AM EST Progress Note [...] ordered to RO possible DVT 0630: pt sarah changed, Dr Schafer bedside. Bandage removed and [...] puffs by inhalation with spacer [] Ipratropium [place] 0.02% unit dose by aerosol Ipratropium [place] MDI 2 puffs by inhalation with spacer [] Duoneb (Ipratropium + Albuterol) unit dose by aerosol Ipratropium MDI + Albuterol MDI 2 puffs byinhalation w/spacer MDI to Aerosol [] Albuterol Sulfate MDI Albuterol Sulfate 0.083% unit dose by aerosol [] Levalbuterol MDI 2 puffs by inhalation Levalbuterol 1.25 mg unit dose by aerosol [] Ipratropium [place] MDI by inhalation Ipratropium [place] 0.02% unit dose by aerosol [] Combivent (Ipratropium + Albuterol) MDI by inhalation Duoneb (Ipratropium + Albuterol) unit doseby aerosol Treatment Assessment [Frequency/Schedule]: Change frequency to: NO CHANGE per Protocol, P&T, [facility] Points 0 1 2 3 4 Pulmonary [...] OCCUPATIONAL THERAPY EVALUATION - ACUTE NAME: Geeta Shetlon : 1970 (52 y.o.) CODE STATUS: Full Code Room: [place] [address] Date of Service: 07/01/2022 Patient Diagnosis(es): Loosening [...] Ambulation Assistance: Independent Transfer Assistance: Independent Active Legal Administrative Secretary: Yes Mode of Transportation: Car OBJECTIVE: Orientation Status: Orientation Overall Orientation Status: Within Functional Limits Orientation Level: Oriented X4;Oriented to place;Oriented to time;Oriented to situation;Oriented toperson Observation: Observation/Palpation Posture: Good Observation: right knee incision with bandage and knee immobilizer in place Cognition Status: Cognition Overall Cognitive Status: [facility] Cognition Comment: Follows commands consistently Perception Status: Perception Overall Perceptual Status: [facility] Vision and Hearing Status: Vision Vision Exceptions: [...] 6 complexities Assistance / Modification: Mod A [facility] (Six Click) Self care Score How much [...] How much help for eating meals?: None [facility] Inpatient Daily Activity Raw Score: 19 AM-[facility] Inpatient ADL T-Scale Score : 40.22 [...] Physical Therapy Med Surg Initial Assessment Facility/Department: [address] TELE Room: [place] [address] NAME: Geeta Shelton : 1970 (52 y.o.) [...] Ambulation Assistance: Independent Transfer Assistance: Independent Active Legal Administrative Secretary: Yes Mode of Transportation: Car OBJECTIVE: Vision [...] Goals: Patient Goals : to go home Loan Clerk Goals Loan Clerk Goal 1: Bed mobility with indep Intermediate Goal 2: Functional transfes with indep Loan Clerk Goal 3: Amb 50ft with 2ww and indep Loan Clerk Goal 4: 4 steps with handrail and SBA Intermediate Goal 5: indep with HEP to improve LE strength and ROM [facility] (6 CLICK) BASIC MOBILITY AM-PAC Inpatient [...] accomplish the task documented in this encounterBON [address] Work Phone: [phone]) 601-579003-09-2023 History of Present illness Narrative* History of [...] she will most likely do this at [facility] in [place]. * Physical exam * General: No acute [...] see dictated x-ray report * Procedure * Coffey removed Steri-Strips placed without complication * Assessment [...] grammatical areas may persist related to the Perfect Escapes software * Merrill Alejandro PA-C * . [facility] [facility] Work Phone: [phone]) 621-752203-07-2023 Hospital Discharge instructions* Discharge Instructions* Arya Coronado APRN - HOGSHEAD PRESS OPERATOR - 06/29/2022 11:33 AM EST Total Knee [...] remove dressing and start using instructions above Coffey will be removed on post-operative day 14 [...] Hospital Unit/Room#: W268/W268-01 Discharging Unit Phone Number: [phone] Emergency Contact: Extended Emergency Contact Information Primary Emergency Contact: kena travis [place] Relation: Other Past Surgical History: Past Surgical History: Procedure Laterality Date JOINT REPLACEMENT Left knee PARTIAL KNEE ARTHROPLASTY Right REVISION TOTAL KNEE ARTHROPLASTY Right 07/01/2022 RIGHT KNEE RIGHT TOTAL KNEE REVISION INSTRUMENTATION ANTONELLA FEMORAL & SCIATIC BLOCK-DEMETRIA performed by Acosta Schafer MD at [facility] [place] Immunization History: There is no immunization [...] Assisted Dressing Assisted Toileting Independent Feeding Independent File Clerk Independent Med Delivery whole Wound Care Documentation and Therapy: Negative Pressure Wound Therapy Knee Anterior;Right (Active) Wound Type Surgical 07/02/222099 Dressing Type Other (Comment) 07/02/22 09 Target Pressure (mmHg) 125 07/01/22 1831 Dressing Status Clean, dry & intact 07/02/222099 Drainage Amount None 07/02/222099 Output (ml) 0 ml 07/01/22 1325 Odor None 07/02/22 0900 Number of days: 1 Incision 07/01/22 Knee Anterior;Right (Active) Dressing Status Clean;Dry;Intact 07/02/222099 Incision Cleansed Not Cleansed 07/01/221942 Dressing/Treatment [place] wrap;Cast padding 07/01/221942 Margins Other (Comment) 07/01/221942 Incision Assessment Other (Comment) 07/01/221942 Drainage Amount None 07/02/222099 Odor None 07/02/222099 Number of days: 1 Elimination: Continence: Bowel: [...] applicable) Name: Address: Dialysis Schedule: Phone: Fax: Silo Worker/Occupational Safety And Health Manager signature: {Esignature:[id number]} PHYSICIAN SECTION Prognosis: {Prognosis:2527593752} Condition at Discharge: { Patient Condition:143633209} Rehab Potential (if transferring to Rehab): {Prognosis:3228461583} Recommended Labs or Other Treatments After Discharge: Physician Certification: I certify the above information and transfer of Geeta Shelton is necessary for the continuing treatment of the diagnosis listed and that she requires [facility] for {GREATER/LESS:241212842} 30 days. Update Admission H&P: {CHP DME Changes in HandP:885579987} PHYSICIAN SIGNATURE: {Esignature:901765336} * Attachments The following attachments cannot be sent through Care Everywhere. * Total Knee Replacement Surgery: General Info (Portuguese) * Wound: VAC (Vacuum-Assisted Closure) (Portuguese) [facility] [employer] Phone: 1(323) 983-972203-02-2023 History of Present illness Narrative* Sindy Pelaez RN - 06/24/2022 11:10 AM EST Yellow PAT and Dynahex instruction sheet reviewed with patient, who verbalized understanding. documented in this encounterBON iSpecimen Phone: evaluation noteNo assessment information available [facility] [employer] Work Phone: Evaluation note* Diagnosis Status post revision of total knee replacement, right- Primary Status post revision of total replacement of right knee Acute postoperative pain Other acute postoperative pain documented in this encounter [facility] [employer] Phone: evaltixrso note* Diagnosis Onset Date Resolution Status MGUS (monoclonal gammopathy of unknown significance) acute Microcytosis acute Peripheral neuropathy acute [facility] [employer] Work Phone: Evaluation note* Diagnosis Onset Date Resolution Status MGUS (monoclonal gammopathy of unknown significance) acute Microcytosis acute Peripheral neuropathy acute MGUS (monoclonal gammopathy of unknown significance) [facility] Work Phone: History general Narrative - Reported* Type Description Date Medical History asthma Medical History snoring Medical History Allergic Rhinitis Medical History Essential Hypertension Surgical History Revise/Replace left knee joint Surgical History Varicose Veins 2010 Surgical History Right ankle surgery Hospitalization History See above [employer] Other History of Present illness Narrative* New [...] grammatical areas may persist related to the PlaytestCloudon software * Acosta Schafer MD * Senior Attending Physician * [facility] * [facility] [place] * . [facility] [facility] Work Phone: History of Present illness [...] grammatical areas may persist related to the Perfect Escapes software * Acosta Schafer MD * Senior Attending Physician * [facility] * [facility] [place] * . -[place] [facility] Work Phone: History of Present [...] will be re-assessed and goals updated. [facility] Work Phone: History of Present illness Narrative* [...] will be re-assessed and goals updated. [facility] Work Phone: History of Present illness Narrative* [...] grammatical areas may persist related to the PlaytestCloudon software * Acosta Schafer MD * Senior Attending Physician * [facility] [place] * . [facility] [facility] Work Phone: History of Present illness [...] grammatical areas may persist related to the PlaytestCloudon software * Merrill Alejandro PA-C * . [facility] Work Phone: Progress note Author Krzysztof Salazar [facility] September 21, 2022 9:52am Note Date/Time September 21, 2022 9:49a m [facility] at [address] [address] Hem/Onc Follow Up Note - OP Signed Patient: Geeta Shelton MR#: [id number] : 1970 Acct:[id number] Age/Sex: 52 / F Type: REG RCR Copies to: Elizabeth Alvarado APRN,HOGSHEAD PRESS OPERATOR Lorrie Baig,DO~ Date of Service: 09/21/2022 Time [...] for coordination of care (as documented) and jrmb-dj-watw counseling of patient and/or family. [facility] - Medical History Medical History: Medical History [...] by Krzysztof Salazar II, DO> 09/21/22 0952 [facility] Work Phone: Reason for visit Narrative* Initial Evaluation, Pre-Op . * [facility]fer [facility] Work Phone: Reason for visit Narrative* Initial Evaluation, Pre-Op . * Referred by: Dr. Acosta Schafer [facility] Work Phone: Summary Purpose Family History [...] Specialty Diagnoses / Procedures Referred By Swapna t Referred To Contact Diagnoses Status post revision of total replacement of right knee Born, Arya Harry, BLOCKER AND POLISHER GOLD WHEEL - HOGSHEAD PRESS OPERATOR [address] [place] [address] Referral ID Status Reason Start Date Expiration Date V isits Requested Visits Authorized [id number] Open Specialty Services Required 07/01/2022 07/01/2023 1 1 Question Answer I certify that I, or a nurse practitioner or physician carpenter's assistant working with me, had an in-person encounter with the patient and the reason for the home care services is documented in the clinical note on: 07/01/2022 Will the referring provider be the attending provider for home health? [facility] of attending provider for home health Dr. [...] section and content) DATE CREATED AUTHOR [facility]01/[facility] DATE CREATED AUTHOR AUTHOR'S ORGANIZ ATION 07/04/2022 [facility] [place] DATE CREATED AUTHOR AUTHOR'S ORGANIZ ATION 07/08/2022 [facility] DATE CREATED AUTHOR AUTHOR'S ORGANIZ ATION 12/30/2022 [employer] DATE CREATED AUTHOR AUTHOR'S ORGANIZ ATION 01/09/2023 [facility] DATE CREATED AUTHOR AUTHOR'S ORGANIZ ATION 02/19/2024 [facility] Care Teams (unrecognized sec tion and content) Team Status: Active Member Role Status Dates Elizabeth Alvarado APRN METALLURGICAL ENGINEER-C Primary Care Provide r Active Team Status: Inactive Member Role Status Dates Elizabeth Alvarado APRN METALLURGICAL ENGINEERInés Primar y Care Provider, Attending Provider Active Team Status: Inactive Member Role Status Dates Elizabeth Alvarado APRN METALLURGICAL ENGINEER-C Primary Care Provide r Active Lorrie Baig DO Attending Provider Active Team Status: Inactive Member Role Status Dates Elizabeth Alvarado APRN METALLURGICAL ENGINEER-C Primary Care Provide r Active KEN CavazosC Attending Provider Active Team Status: Inactive Member Role Status Dates Elizabeth Alvarado APRN METALLURGICAL ENGINEER-C Attending Provider A ctive Services [facility] Primary Care Provider Active Tube Backer Relationship Specialty Start Date End Date Elizabeth Alvarado PCP - General 07/01/22 Team Status: Active Member Role Status Dates Elizabeth Alvarado APRN METALLURGICAL ENGINEER-C Primary Care Provide r Active Zoey Ramirez APRN Attending Provider Active Lorrie Bagi DO Referring Provider Active Team Status: Inactive Member Role Status Dates Elizabeth Alvarado APRN METALLURGICAL ENGINEER-C Primary Care Provide r Active Acosta Schafer Attending Provider Active Team Status: Inactive Member Role Status Dates Elizabeth Alvarado APRN METALLURGICAL ENGINEER-C Primary Care Provide r Active Sindy Davila METALLURGICAL ENGINEER-C Attending Provider Active Team Status: Inactive Member Role Status Dates Elizabeth Alvarado APRN METALLURGICAL ENGINEER-C Attending Provider A ctive Start: August 24, 2023 End: August 24, 2023 Team Status: Active Member Role Status Dates PHYSICIAN NO FAMILY Primary Care Provider Active Team Status: Inactive Member Role Status Dates Elizabeth Alvarado APRN METALLURGICAL ENGINEER-C Attending Provider A ctive Start: September 07, 2023 End: September 07, 2023 PHYSICIAN NO FAMILY Primary Care Provider Active Start: September 07, 2023 End: September 07, 2023 Team Status: Active Member Role Status Dates Elizabeth Alvarado APRN METALLURGICAL ENGINEER-C Primary Care Provide r Active Start: September 30, 2023 Zoey Ramirez APRN Active Start: September 30, 2023 Lorrie Baig DO Referring Provider Active Sta rt: September 30, 2023 Krzysztof Salazar II, DO Attending Provider Active Start: September 30, 2023 Team Status: Inactive Member Role Status Dates Elizabeth Alvarado APRN METALLURGICAL ENGINEER-C Primary Care Provide r Active Start: September 30, 2023 End: September 30, 2023 Holli Soriano APRN Attending Provider Acti ve Start: [...] content) Specialty Diagnoses / Procedures Referred By Swapna t Referred To Contact Diagnoses 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 OR REVJ TOTAL KNEE ARTHRP W/WO ALGRFT 1 COMPONENT OR REVJ TOT KNEE ARTHRP FEM&ENTIRE TIBIAL COMPONE RIGHT KNEE RIGHT TOTAL KNEE REVISION INSTRUMENTATION ANTONELLA FEMORAL & SCIATIC BLOCK Acosta Schafer MD [address] [place] [address] [facility] [address] [place] [address] Referral ID Status Reason Start Date Expiration Date Visits Re quested Visits Authorized [id number] 1 1 Ordered Prescriptions (unrec ognized section [...] Poon RN)1804 (Given - Provider: Sosa Poon RN)2057 (Given - Provider: Stefany Valdes RN) 0353 (Not Given - Provider: Stefany Valdes RN - Reason: Other - Comment: alternate pain medication given per pt request)0812 (Given - Provider: Sosa Poon RN)1600 (Due)2200 (Due) aspirin EC tablet 81 mg (CANCELED) 81 mg, Oral, 2 TIMES DAILY, First dose on Renee 07/01/22 at 2100, Until Discontinued, Do not crush or break., Post-op 223 (Given - Provider: Fouzia Ramos RN) 0903 (Given - Provider: Sosa Poon RN) budesonide-formoterol (SYMBICORT) 160-4.5 MCG/ACT inhaler 2 puff 2 puff, Inhalation, 2 TIMES DAILY, First dose on Renee 07/01/22 at 2000, Until Discontinued, Substituted for mometasone-formoterol (DULERA). 2037 (Given - Provider: Joy Og RCP) 191 (Not Given - Provider: Joy Og RCP - Reason: Other)191 (Given - Provider: Joy Og RCP)192 (Not Given - Provider: Joy Og RCP [...] 6 HOURS, 3 doses, First dose on Renee 07/01/22 at 1800, Last dose on Tue07/02/22 at 0600, Do not administer for more than 5 days., Post-op 1825 (Given - Provider: Ozzie Carpenter RN) 0020 (Given - Provider: Fouzia Ramos RN)0629 (Given - Provider: Fouzia Ramos RN) montelukast (SINGULAIR) tablet 10 mg 10 mg, Oral, DAILY, First dose on Tue07/01/22 at 1545, Until Discontinued 1638 (Given - Provider: Ozzie Carpenter RN) 09 (Given - Provider: Sosa Poon RN) 811 (Given - Provider: Sosa Pono RN) oxyCODONE (OXYCONTIN) extended release tablet 10 mg (COMPLETED) 10 mg, Oral, ONCE, 1 dose, On Tue07/01/22 at 0845, Do not crush or break., Pre-op (day of surgery) 09 (Given - Provider: Rodolfo Chacko RN) rivaroxaban (XARELTO) tablet 10 mg 10 mg, Oral, DAILY, First dose on Tue07/02/22 at 1800, Until Discontinued, Indication of Use: Post-Op Knee/Hip, 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 Doses of GREATER THAN or EQUAL to 15 mg/day must be administered with food. 180 (Given - Provider: Sosa Poon RN) 1800 (Due) rOPINIRole (REQUIP) tablet 0.25 mg 0.25 mg, Oral, 2 times daily, First dose on Tue07/01/22 at 2100, Until Discontinued 2312 (Given - Provider: Fouzia Ramos RN) 902 (Given - Provider: Sosa Poon RN)2057 (Given - Provider: Stefany Valdes RN) 08 (Given - Provider: Sosa Poon RN)2100 (Due) sennosides-docusate sodium (SENOKOT-S) 8.6-50 MG tablet 1 tablet 1 tablet, Oral, 2 TIMES DAILY, First dose on Renee 07/01/22 at 2100, Until Discontinued, Post-op 2230 (Given - Provider: Fouzia Ramos RN) 902 (Given - Provider: Sosa Poon RN)2057 (Not Given - Provider: Stefnay Valdes RN - Reason: Patient/family refused) 0813 (Held - Provider: Sosa Poon RN - Reason: Patient/family refused)2100 (Due) sodium chloride flush 0.9 % injection 5-40 mL 5-40 mL, IntraVENous, EVERY 12 HOURS SCHEDULED (2 times per day), First dose on Renee 07/01/22 at 2100, Until Discontinued, For Line Patency: [...] or Central Line = 20 mL/lumen, Post-op 225 (Given - Provider: Fouzia Ramos RN) 09 [...] prior to surgery, Pre-op (day of surgery) 09 (Given - Provider: Rodolfo Chacko RN) tranexamic [...] at 2200, Antimicrobial Indications: Surgical Prophylaxis, Post-op 2255 (New Bag - Provider: Fouzia Ramos RN) 0125 (Stopped - Provider: Fouzia Ramos RN) vancomycin 1000 mg IVPB in 250 mL NS addavial (COMPLETED) 1,000 mg, IntraVENous, at 250 mL/hr, Administer over 60 Minutes, RELIEF MASTER TO O.R., On Renee 07/01/22 at 0845, [...] Carpenter RN) 0903 (Given - Provider: Sosa Poon RN) 0812 (Given - Provider: Sosa Poon, LAUREN) Continuous Medication Order 07/01/2022 07/02/2022 07/03/2022 lactated [...] (NoRateChange - Provider: Yang Mccollum APRN - RED HAT LINUX ENGINEER)1311 (Anesthesia Volume Adjustment - Provider: Yang Mccollum APRN - TOMMIE)1324 (Anesthesia Volume Adjustment - Provider: RHEA Adrian [...] Ramos RN) 0903 (Given - Provider: Sosa Poon, LAUREN) 1158 (Given - Provider: Sosa Poon RN) [...] of each other unless specifically ordered., Post-op 2227 (Given - Provider: Fouzia Ramos RN) ondansetron (ZOFRAN) injection 4 mg(Linked Group 1) 4 mg, IntraVENous, EVERY 6 HOURS PRN, Starting on Renee 3 at 1502, Until Discontinued, Nausea, Vomiting, Administer [...] 1502, Until Discontinued, Pain Severe (7-10), Post-op 185 (See Alternative - Provider: Ozzie Carpenter RN) [...] 1502, Until Discontinued, Pain Moderate (4-6), Post-op 185 (Given - Provider: Ozzie Carpenter RN) 0235 [...] BE BASED ON THE PRIMARY CLINICAL RECORDS. [employer] provides no warranty or guarantee of the accuracy or completeness of information in this document.
== END 2024-05-23 08:41 | disposition home or self-care (01) ==
LOC: VC 08:26
PROVIDERS: PCP Radiology Diagnostic Radiology; Visit Provider Radiology Diagnostic Radiology
DX: I83.813 Varicose veins of bilateral lower extremities with pain (principal)
CPT/HCPCS: 36478

== ENCOUNTER 2024-05-30 08:20 | Outpatient (OUT) | payer MEDICARE, OTHER, MEDICAID, SELFPAY ==
--- NOTE | 2024-05-30 08:22 | VEIN_ITS ---
Patient Name: GEETA VANCE MR#: [id number] : 1970 Exam Date: 05/30/2024 Ordering Doctor: DR FLACO TA M.D. RADIOLOGY REPORT PROCEDURE: VC EXT VENOUS LT LIMITED COMPARISON: None. INDICATIONS: I80.02 - Phlebitis and thrombophlebitis of superficial veins left leg TECHNIQUE: Lower extremity covington scale and Duplex Doppler evaluation of the deep venous system from the inguinal ligament through the calf veins. FINDINGS: REGION: Right lower extremity. THROMBI: Negative for DVT. Heat induced thrombus in left SSV 3.0 cm from SPJ and extends to distal lower leg. COMPRESSIBILITY: Non-compressible segments corresponding to thrombus FLOW: Areas of no flow corresponding to thrombus OTHER: Enlarged achilles tendon noted measuring up to 1.3 cm. CONCLUSION: 1. Successful post ablation occlusion of left small saphenous vein. 2. Incidentally noted was prominent thickening of the Achilles tendon where the patient also describes tenderness. Dictated by: Flaco Ta M.D. on 05/30/2024 at 11:06 Approved by: Flaco Ta M.D. on 05/30/2024 at 11:07
--- NOTE | 2024-05-30 08:22 | VEIN_ITS ---
Patient Name: GEETA VANCE MR#: [id number] : 1970 Exam Date: 05/30/2024 Ordering Doctor: DR FLACO ARCOS M.D. RADIOLOGY REPORT PROCEDURE: [facility] - OFFICE VISIT FOLLOW UP COMPARISON: [facility], 05/16/2024. PROGRESS NOTES: The patient reports improvement in leg symptoms. There has been interval reduction in varicosities. The patient has followed our recommendations to walk 20-30 minutes once or twice per day since the procedure. Physical exam demonstrates decrease in varicosities of the leg. Persistent varicosities are identified along the legs bilaterally. Review of the ultrasound performed the same day demonstrates occlusive thrombus extending throughout the treated vein(s), see separate report, consistent with a successful ablation. No thrombus extending into or beyond the saphenofemoral junction. The patient expressed a desire to proceed with treatment of remaining incompetent varicosities. The patient was informed that treatment was a process and would require several procedures/sessions. [facility]: 1. Successful ablation of the left small saphenous vein(s). 2. Persistent varicose veins and lower extremity symptoms. 3. Ultrasound evaluation also demonstrated and abnormally thickened Achilles tendon. Patient describes some swelling and some/tenderness posterior to or ankle and this may represent tendinitis. PLAN: 1. Endovenous laser ablation of right anterior accessory saphenous vein. Nurse notes, history and physical were reviewed and confirmed, see attached forms. The nurse was present throughout the physical exam and consultation Dictated by: Flaco Arcos M.D. on 05/30/2024 at 11:07 Approved by: Flaco Arcos M.D. on 05/30/2024 at 11:08
--- OUTSIDE RECORDS SUMMARY | 2024-05-30 08:39 | XMS_ITS | CCD ---
Author Organization [facility] Care Team Providers Care Web Services Developer Name Role Phone RHEA Alvarado Attending Provider [facility], Services Primary Care Provider RHEA Alvarado Primary Care Provide r CARLI Villeda Attending Provider [phone] RHEA Alvarado Primary Care Provide r CARLI Villeda Attending Provider Pending Provider Unavailable Unavailable Unavailable Unavailable Unavailable [...] Care Provide r Acosta Schafer Attending Provider [phone] RHEA Ramirez Attending Provider DO Lorrie Baig Referring Provider [phone] Acosta Schafer Attending Un available Pending, [...] Dr. Acosta Tyson Attending Un available Myerholpaula, TELECASTING TECHNICIAN Elizabeth Hurley Primary Care Provide r Myersaige, TELECASTING TECHNICIAN Elizabeth K Attending Provider Sindy Davila Unavailable MARII Davila Attending Provider Tyler Jean Unavailable MyerRHEA moulton K Primary Care Provide r MARII Davila Attending Provider MyerPINKY moultonN Elizabeth K Attending Provider MyRHEA morales Attending Provider NO FAMILY, PHYSICIAN Primary Care Provider Unava ilable Myersaige, RHEA Johnson K Primary Care Provide r DO Lorrie Baig Referring Provider [phone] Adamowicz II, DO Krzysztof Prince Attending Provider [phone] Elizabeth Alvarado Admitting Unavailab le JustinaerElizabeth moulton [...] source) Ibuprofen Drug Allergy 4 Unknown Reaction [facility] Penicillins (antibiotic) (2 sources) Penicillin Drug Allergy 4 [facility] (20 sources) Penicillins; Translations: [Penicillins] Allergy to substance 8 Anaphylaxis [facility] (6 sources) Ibuprofen; Translations: [ibuprofen] Drug Allergy 3 Unknown Reaction [facility] (3 sources) Penicillin V Drug Allergy 3 [facility] (1 source) Penicillin Drug Allergy 4 [facility] Repository Medications Current Medications Medication Drug Class(es) Dates Sig (Normalized) Sig (Original) acetaminophen 325 mg oral tablet (2 sources) Start: 07-01-2022 acetaminophen (TYLENOL) tablet 650 mg Start: 07-01-2022 End: 07-01-2022 acetaminophen (TYLENOL) tabl et 1,000 mg [id number] actuat albuterol 0.09 mg/actuat metered dose [...] Active docusate sodium 50 mg / sennosides, skilled nursing 8.6 mg oral tablet (2 sources) Start: [...] disintegrating tablet 4 mg polyethylene glycol [id number] mg powder for oral solution (1 source) [...] break. Start: 12-03-2021 take 1 capsule by [facility] once daily venlafaxine (EFFEXOR XR) 75 [...] ALT [Catalytic activity/Vol] 33 U/L Normal 7-52 [facility] Comment on above: Performed By: #### F ER, CMP, CBC, FE and TIBC #### [facility] [address] [place], [place] [id number] [facility] #### TOMA SERUM, SPE, KAPPA #### [facility] , Albumin [Mass/volume] in Ser um or PlasmaOrdered By: Krzysztof Salazar on 09-20-2023 Albumin [Mass/Vol] 3.8 g/dL Normal 2.9-4.4 [facility] Comment on above: Performed By: #### F ER, CMP, CBC, FE and TIBC #### [facility] [address] [place] [address] #### TOMA SERUM, SPE, KAPPA #### [facility] , Albumin [Mass/volume] in Ser um or Plasma by Bromocresol green (BCG) dye binding methoOrdered By: Krzysztof Salazar on 09-20-2023 Albumin BCG dye [Mass/Vol] 4.2 g/dL 3.5-5.7 [facility] Alkaline phosphatase [Enzyma tic activity/volume] in Serum or PlasmaOrdered By: Krzysztof Salazar on 09-20-2023 ALP [Catalytic activity/Vol] 79 U/L Normal 34-104 [facility] Comment on above: Performed By: #### F ER, CMP, CBC, FE and TIBC #### [facility] [address] [place] [address] #### TOMA SERUM, SPE, KAPPA #### [facility] , Aspartate aminotransferase [ Enzymatic activity/volume] in Serum or PlasmaOrdered By: Krzysztof Salazar on 09-20-2023 AST [Catalytic activity/Vol] 30 U/L Normal 13-39 [facility] Comment on above: Performed By: #### F ER, CMP, CBC, FE and TIBC #### [facility] [address] [place] [address] #### TOMA SERUM, SPE, KAPPA #### [facility] , Automated basophil %Ordered By: Krzysztof Salazar on 09-20-2023 Basophils/100 WBC (Bld) 0.5 % Normal . [facility] Comment on above: Performed By: #### F ER, CMP, CBC, FE and TIBC #### [facility] [address] [place] [address] #### TOMA SERUM, SPE, KAPPA #### [facility] , Automated basophil countOrde red By: Krzysztof Salazar on 09-20-2023 Basophils (Bld) [#/Vol] 0.0 10*3/uL Normal 0.0-0.2 [facility] Comment on above: Result Comment: PERF ORMED BY: [place] [address] PATHOLOGIST LOOM FIXER MELODY ELAM M.D. Performed By: #### F ER, CMP, CBC, FE and TIBC #### [address] #### TOMA SERUM, SPE, KAPPA #### [facility] , Automated blood monocyte cou ntOrdered By: Krzysztof Salazar on 09-20-2023 Monocytes (Bld) [#/Vol] 0.7 10*3/uL Normal 0.0-0.8 [facility] Comment on above: Performed By: #### F ER, CMP, CBC, FE and TIBC #### [address] #### TOMA SERUM, SPE, KAPPA #### [facility] , Automated eosinophil %Ordere d By: Krzysztof Salazar on 09-20-2023 Eosinophils/100 WBC (Bld) 2.6 % Normal . [facility] Comment on above: Performed By: #### F ER, CMP, CBC, FE and TIBC #### [place] [address] [place] #### TOMA SERUM, SPE, KAPPA #### [facility] , Automated eosinophil countOr dered By: Krzysztof Salazar on 09-20-2023 Eosinophils (Bld) [#/Vol] 0.2 10*3/uL Normal 0.0-0.45 [facility] Comment on above: Performed By: #### F ER, CMP, CBC, FE and TIBC #### [facility] [address] [place] [address] [place] #### TOMA SERUM, SPE, KAPPA #### [facility] , Automated monocyte %Ordered By: Krzysztof Salazar on 09-20-2023 Monocytes/100 WBC (Bld) 7.9 % Normal . [facility] Comment on above: Performed By: #### F ER, CMP, CBC, FE and TIBC #### [place] [address] [place] #### TOMA SERUM, SPE, KAPPA #### [facility] , Automated neutrophil %Ordere d By: Krzysztof Salazar on 09-20-2023 Neutrophils/100 WBC (Bld) 64.3 % Normal . [facility] Comment on above: Performed By: #### F ER, CMP, CBC, FE and TIBC #### [address] #### TOMA SERUM, SPE, KAPPA #### [facility] , Bilirubin.total [Mass/volume ] in Serum or PlasmaOrdered By: Krzysztof Salazar on 09-20-2023 Bilirubin [Mass/Vol] 0.6 mg/dL Normal 0.3-1.0 [facility] Comment on above: Performed By: #### F ER, CMP, CBC, FE and TIBC #### [address] #### TOMA SERUM, SPE, KAPPA #### [facility] , Calcium [Mass/volume] in Ser um or PlasmaOrdered By: Krzysztof Salazar on 09-20-2023 Calcium [Mass/Vol] 9.7 mg/dL Normal 8.6-10.3 [facility] Comment on above: Performed By: #### F ER, CMP, CBC, FE and TIBC #### [place] [address] [place] #### TOMA SERUM, SPE, KAPPA #### [facility] , Carbon dioxide, total [Moles /volume] in Serum or PlasmaOrdered By: Krzysztof Salazar on 09-20-2023 CO2 [Moles/Vol] 32.4 mmol/L High 21.0-31.0 [facility] Comment on above: Performed By: #### F ER, CMP, CBC, FE and TIBC #### [place] [address] [place] #### TOMA SERUM, SPE, KAPPA #### [facility] , Chloride [Moles/volume] in S hugo or PlasmaOrdered By: Krzysztof Salazar on 09-20-2023 Chloride [Moles/Vol] 97 mmol/L Low 98-107 [facility] Comment on above: Performed By: #### F ER, CMP, CBC, FE and TIBC #### [facility] [address] [place] [address] [place] #### TOMA SERUM, SPE, KAPPA #### [facility] , Complete Blood Count Auto Di ffon 09-20-2023 Mean Corpuscular HGB Conc 32.7 g/dL Normal 32.0-35.0 The Replaced By [facility] Comment on above: Performed By: #### F ER, CMP, CBC, FE and TIBC #### [facility] [address] [place] [address] #### TOMA SERUM, SPE, KAPPA #### [facility] , NRBC% 0.1 /100{WBC} Normal 0-0.5 The Replaced By [facility] Comment on above: Performed By: #### F ER, CMP, CBC, FE and TIBC #### [facility] [address] [place] [address] [place] #### TOMA SERUM, SPE, KAPPA #### [facility] , Comprehensive Metabolic Pane gretel 09-20-2023 Albumin [Mass/Vol] 4.2 g/dL Normal 3.5-5.7 The Replaced By [facility] Comment on above: Performed By: #### F ER, CMP, CBC, FE and TIBC #### [facility] [address] [place] [address] [place] #### TOMA SERUM, SPE, KAPPA #### [facility] , Creatinine Clr Calc Pharmacy 143.32 Normal The Replaced By [facility] Comment on above: Performed By: #### F ER, CMP, CBC, FE and TIBC #### [facility] [address] [place] [address] [place] #### TOMA SERUM, SPE, KAPPA #### [facility] , GFR/1.73 sq M.predicted MDRD (S/P/Bld) [Vol rate/Area] mL/min/{1.73_m2} Normal The Replaced By [facility] Comment on above: Performed By: #### F ER, CMP, CBC, FE and TIBC #### [place] [address] [place] #### TOMA SERUM, SPE, KAPPA #### [facility] , Creatinine [Mass/volume] in Serum or PlasmaOrdered By: Krzysztof Salazar on 09-20-2023 Creatinine [Mass/Vol] 0.60 mg/dL Normal 0.60-1.20 [facility] Comment on above: Performed By: #### F ER, CMP, CBC, FE and TIBC #### [address] #### TOMA SERUM, SPE, KAPPA #### [facility] , Erythrocyte distribution wid th [Ratio] by Automated countOrdered By: Krzysztof Salazar on 09-20-2023 Erythrocyte distribution width (RBC) [Ratio] 16.7 % High 11.9-15.3 [facility] Comment on above: Performed By: #### F ER, CMP, CBC, FE and TIBC #### [place] [address] [place] #### TOMA SERUM, SPE, KAPPA #### [facility] , Erythrocytes [#/volume] in B lood by Automated countOrdered By: Krzysztof Salazar on 09-20-2023 RBC (Bld) [#/Vol] 4.86 10*6/uL Normal 3.60-5.00 [facility] Comment on above: Performed By: #### F ER, CMP, CBC, FE and TIBC #### [place] [address] [place] #### TOMA SERUM, SPE, KAPPA #### [facility] , Ferritin [Mass/volume] in Se rum or PlasmaOrdered By: Krzysztof Salazar on 09-20-2023 Ferritin [Mass/Vol] 92.7 ng/mL Normal 11.0-306.8 [facility] Comment on above: Result Comment: PERF ORMED BY: [place] [address] PATHOLOGIST LOOM FIXER MELODY ELAM M.D. Performed By: #### F ER, CMP, CBC, FE and TIBC #### [address] #### TOMA SERUM, SPE, KAPPA #### [facility] , Free K+L LT Chains, Qn, Son 09-20-2023 Free Gause Light Chains, S 30.9 mg/L High 3.3-19.4 The Replaced By [facility] Comment on above: Performed By: #### F ER, CMP, CBC, FE and TIBC #### [facility] [address] [place] [address] #### TOMA SERUM, SPE, KAPPA #### [facility] , Free Lambda Light Chains, S 26.4 mg/L High 5.7-26.3 The Replaced By [facility] Comment on above: Performed By: #### F ER, CMP, CBC, FE and TIBC #### [place] [address] [place] #### TOMA SERUM, SPE, KAPPA #### [facility] , Gause/Lambda Ratio, S 1.17 Normal 0.26-1.65 The Replaced By [facility] Comment on above: Result Comment: Perf ormed at: - [facility] [address] [id number] Sales Engineer Engineered Products: Jeyson Duncan PhD, Phone: [phone] PERFORMED BY: [place] [address] PATHOLOGIST LOOM FIXER MELODY ELAM M.D. Performed By: #### F ER, CMP, CBC, FE and TIBC #### [address] #### TOMA SERUM, SPE, KAPPA #### [facility] , Glucose [Mass/volume] in Ser um or PlasmaOrdered By: Krzysztof Salazar on 09-20-2023 Glucose [Mass/Vol] 123 mg/dL High 70-100 [facility] Comment on above: ADA recommended refe rence rangeRandom Glucose Reference Range is dependent on time and content of last meal. Glucose of more than 200 mg/dL in a nonstressed, ambulatory subject supports the diagnosis of Diabetes Mellitus. Result Comment: [place] om Glucose Reference Range is dependent on time and content of last meal. Glucose of more than 200 mg/dL in a nonstressed, ambulatory subject supports the diagnosis of Diabetes Mellitus. ADA recommended reference range Performed By: #### F ER, CMP, CBC, FE and TIBC #### [address] #### TOMA SERUM, SPE, KAPPA #### [facility] , Hematocrit [Volume Fraction] of Blood by Automated countOrdered By: Krzysztof Salazar on 09-20-2023 Hematocrit (Bld) [Volume fraction] 38.3 % Normal 34.0-46.4 [facility] Comment on above: Performed By: #### F ER, CMP, CBC, FE and TIBC #### [place] [address] [place] #### TOMA SERUM, SPE, KAPPA #### [facility] , Hemoglobin [Mass/volume] in BloodOrdered By: Krzysztof Salazar on 09-20-2023 Hemoglobin (Bld) [Mass/Vol] 12.5 g/dL Normal 11.8-15.4 [facility] Comment on above: Performed By: #### F ER, CMP, CBC, FE and TIBC #### [address] #### TOMA SERUM, SPE, KAPPA #### [facility] , IgA [Mass/volume] in Serum o r PlasmaOrdered By: Krzysztof Salazar on 09-20-2023 IgA [Mass/Vol] 409 mg/dL 87-352 [facility] IgG [Mass/volume] in Serum o r PlasmaOrdered By: Krzysztof Salazar on 09-20-2023 IgG [Mass/Vol] 1704 mg/dL [phone] [facility] IgM [Mass/volume] in Serum o r PlasmaOrdered By: Krzysztof Salazar on 09-20-2023 IgM [Mass/Vol] 122 mg/dL 26-217 [facility] Comment on above: Performed at: [facility] [employer] [address] [id number] Director: Jeyson Duncan PhD, Phone: [phone] Immunofixation,Serumon 09-19 Immunofixation, Serum Normal . The Replaced By [facility] Comment on above: Result Comment: No m onoclonality detected. Performed By: #### F ER, CMP, CBC, FE and TIBC #### [facility] [address] [place] [address] #### TOMA SERUM, SPE, KAPPA #### [facility] , Immunoglobulin A, Serum 409 mg/dL High 87-352 [facility] Comment on above: Performed By: #### F ER, CMP, CBC, FE and TIBC #### [facility] [address] [place] [address] [place] #### TOMA SERUM, SPE, KAPPA #### [facility] , Immunoglobulin G 1704 mg/dL High 586-1602 The Replaced By [facility] Comment on above: Performed By: #### F ER, CMP, CBC, FE and TIBC #### [facility] [address] [place] [address] [place] #### TOMA SERUM, SPE, KAPPA #### [facility] , Immunoglobulin M, Serum 122 mg/dL Normal -217 [facility] Comment on above: Result Comment: Perf ormed at: [facility] [address] [place], [place] [id number] Sales Engineer Engineered Products: Jeyson Duncan PhD, Phone: [phone] Performed By: #### F ER, CMP, CBC, FE and TIBC #### [facility] [address] [place] [address] #### TOMA SERUM, SPE, KAPPA #### [facility] , Immunoglobulin light chains. kappa.free [Mass/volume] in SerumOrdered By: Krzysztof Salazar on 09-20-2023 Immunoglobulin light chains.kappa.free (S) [Mass/Vol] 30.9 mg/L 3.3-19.4 [facility] Immunoglobulin light chains. kappa.free/Immunoglobulin light chains.lambda.free [MassOrdered By: Krzysztof Salazar on 09-20-2023 Immunoglobulin light chains.kappa.free/Immuno globulin light chains.lambda.free (S) [Mass ratio] 1.17 0.26-1.65 [facility] Comment on above: Performed at: [address] [id number] Director: Jeyson Duncan PhD, Phone: [phone] Immunoglobulin light chains. lambda.free [Mass/volume] in Serum or PlasmaOrdered By: Krzysztof Salazar on 09-20-2023 Immunoglobulin light chains.lambda.free [Mass/Vol] 26.4 mg/L 5.7-26.3 [facility] Iron [Mass/volume] in Serum or PlasmaOrdered By: Krzysztof Salazar on 09-20-2023 Iron [Mass/Vol] 74 ug/dL Normal 50-212 [facility] Comment on above: Performed By: #### F ER, CMP, CBC, FE and TIBC #### [facility] [address] [place] [address] [place] #### TOMA SERUM, SPE, KAPPA #### [facility] , Iron and TIBC Profileon 08-24 % Iron Saturation 21.5 % Normal 20-50 The Replaced By [facility] Comment on above: Performed By: #### F ER, CMP, CBC, FE and TIBC #### [facility] [address] [place] [address] [place] #### TOMA SERUM, SPE, KAPPA #### [facility] , Total Iron Binding Capacity 344 ug/dL Normal 255-450 The Replaced By [facility] Comment on above: Performed By: #### F ER, CMP, CBC, FE and TIBC #### [facility] [address] [place] [address] [place] #### TOMA SERUM, SPE, KAPPA #### [facility] , Iron binding capacity [Mass/ volume] in Serum or PlasmaOrdered By: Krzysztof Salazar on 09-20-2023 Iron binding capacity [Mass/Vol] 344 ug/dL 255-450 [facility] Iron saturation [Mass Fracti on] in Serum or PlasmaOrdered By: Krzysztof Salazar on 09-20-2023 Iron saturation [Mass fraction] 21.5 % 20-50 [facility] Leukocytes [#/volume] correc silverio for nucleated erythrocytes in Blood by Automated counOrdered By: Krzysztof Salazar on 09-20-2023 WBC corrected for nucl RBC Auto (Bld) [#/Vol] 8.5 10*3/uL 3.8-11.6 [facility] Leukocytes [#/volume] in Blo od by Automated countOrdered By: Krzysztof Salazar on 09-20-2023 WBC (Bld) [#/Vol] 8.5 10*3/uL Normal 3.8-11.6 [facility] Comment on above: Performed By: #### F ER, CMP, CBC, FE and TIBC #### [facility] [address] [place] [address] [place] #### TOMA SERUM, SPE, KAPPA #### [facility] , Lymphocytes [#/volume] in Bl ood by Automated countOrdered By: Krzysztof Salazar on 09-20-2023 Lymphocytes (Bld) [#/Vol] 2.1 10*3/uL Normal 1.00-4.8 [facility] Comment on above: Performed By: #### F ER, CMP, CBC, FE and TIBC #### [place] [address] [place] #### TOMA SERUM, SPE, KAPPA #### [facility] , Lymphocytes/100 leukocytes i n Blood by Automated countOrdered By: Krzysztof Salazar on 09-20-2023 Lymphocytes/100 WBC (Bld) 24.7 % Normal . [facility] Comment on above: Performed By: #### F ER, CMP, CBC, FE and TIBC #### [place] [address] [place] #### TOMA SERUM, SPE, KAPPA #### [facility] , MCH [Entitic mass] by Automa silverio countOrdered By: Krzysztof Salazar on 09-20-2023 MCH (RBC) [Entitic mass] 25.8 pg Normal 24.7-34.3 [facility] Comment on above: Performed By: #### F ER, CMP, CBC, FE and TIBC #### [address] #### TOMA SERUM, SPE, KAPPA #### [facility] , MCHC Auto (RBC) [Mass/Vol]Or dered By: Krzysztof Salazar on 09-20-2023 MCHC (RBC) [Mass/Vol] 32.7 g/dL 32.0-35.0 [facility] MCV [Entitic volume] by Auto mated countOrdered By: Krzysztof Salazar on 09-20-2023 MCV (RBC) [Entitic vol] 78.7 fL Low 80-100 [facility] Comment on above: Performed By: #### F ER, CMP, CBC, FE and TIBC #### [place] [address] [place] #### TOMA SERUM, SPE, KAPPA #### [facility] , Neutrophils [#/volume] in Bl ood by Automated countOrdered By: Krzysztof Salazar on 09-20-2023 Neutrophils (Bld) [#/Vol] 5.5 10*3/uL Normal 1.8-7.7 [facility] Comment on above: Performed By: #### F ER, CMP, CBC, FE and TIBC #### [facility] [address] [place] [address] [place] #### TOMA SERUM, SPE, KAPPA #### [facility] , No Panel InformationOrdered By: Krzysztof Salazar on 09-20-2023 Estimated GFR (CKD-EPI) > 60.0 mL/Min [facility] Creatinine Clearance (Chem 143.32 [facility] Protein Electrophoresis M-Antwan Not observed g/dL Not Observed [facility] Protein Electrophoresis Note See comment . [facility] Comment on above: Protein electrophore sis scan will follow via computer,mail, or information assurance officer delivery. Serum Immunofixation See comment . [facility] Comment on above: No monoclonality det ected. Nucleated erythrocytes [Pres ence] in Blood by Automated countOrdered By: Krzysztof Salazar on 09-20-2023 Nucleated RBC Auto Ql (Bld) 0.1 /100{WBC} 0-0.5 [facility] Platelet mean volume [Entiti c volume] in Blood by Automated countOrdered By: Krzysztof Salazar on 09-20-2023 Platelet mean volume (Bld) [Entitic vol] 8.8 fL Normal 6.3-10.7 [facility] Comment on above: Performed By: #### F ER, CMP, CBC, FE and TIBC #### [facility] [address] [place] [address] [place] #### TOMA SERUM, SPE, KAPPA #### [facility] , Platelets [#/volume] in Bloo d by Automated countOrdered By: Krzysztof Salazar on 09-20-2023 Platelets (Bld) [#/Vol] 271 10*3/uL Normal 150-450 [facility] Comment on above: Performed By: #### F ER, CMP, CBC, FE and TIBC #### [facility] [address] [place] [address] [place] #### TOMA SERUM, SPE, KAPPA #### [facility] , Potassium [Moles/volume] in Serum or PlasmaOrdered By: Krzysztof Salazar on 09-20-2023 Potassium [Moles/Vol] 4.4 mmol/L Normal 3.5-5.1 [facility] Comment on above: Performed By: #### F ER, CMP, CBC, FE and TIBC #### [place] [address] [place] #### TOMA SERUM, SPE, KAPPA #### [facility] , Protein Electrophoresis, Ser umon 09-20-2023 Scyhk-7-Fmhpiico 0.3 g/dL Normal 0.0-0.4 The Replaced By [facility] Comment on above: Performed By: #### F ER, CMP, CBC, FE and TIBC #### [address] #### TOMA SERUM, SPE, KAPPA #### [facility] , Rgake-7-Ofalzhrn 0.8 g/dL Normal 0.4-1.0 The Replaced By [facility] Comment on above: Performed By: #### F ER, CMP, CBC, FE and TIBC #### [address] #### TOMA SERUM, SPE, KAPPA #### [facility] , Beta Globulin 1.2 g/dL Normal 0.7-1.3 The Replaced By [facility] Comment on above: Performed By: #### F ER, CMP, CBC, FE and TIBC #### [place] [address] [place] #### TOMA SERUM, SPE, KAPPA #### [facility] , Gamma Globulin 1.8 g/dL Normal 0.4-1.8 The Replaced By [facility] Comment on above: Performed By: #### F ER, CMP, CBC, FE and TIBC #### [place] [address] [place] #### TOMA SERUM, SPE, KAPPA #### [facility] , M-Antwan Not Observed Normal Not Observed The Replaced By [facility] Comment on above: Performed By: #### F ER, CMP, CBC, FE and TIBC #### [place] [address] [place] #### TOMA SERUM, SPE, KAPPA #### [facility] , SPE-Note Normal . The Replaced By [facility] Comment on above: Result Comment: Prot ein electrophoresis scan will follow via computer, mail, or information assurance officer delivery. Performed By: #### F ER, CMP, CBC, FE and TIBC #### [address] #### TOMA SERUM, SPE, KAPPA #### [facility] , Protein [Mass/volume] in Ser um or PlasmaOrdered By: Krzysztof Salazar on 09-20-2023 Protein [Mass/Vol] 7.7 g/dL Normal 6.4-8.9 [facility] Comment on above: Performed By: #### F ER, CMP, CBC, FE and TIBC #### [place] [address] [place] #### TOMA SERUM, SPE, KAPPA #### [facility] , Protein [Mass/Vol] 7.8 g/dL Normal 6.0-8.5 [facility] Comment on above: Performed By: #### F ER, CMP, CBC, FE and TIBC #### [place] [address] [place] #### TOMA SERUM, SPE, KAPPA #### [facility] , Serum globulin measurement ( mass/volume)Ordered By: Krzysztof Salazar on 09-20-2023 Globulin (S) [Mass/Vol] 4.0 g/dL High 2.2-3.9 [facility] Comment on above: Performed By: #### F ER, CMP, CBC, FE and TIBC #### [place] [address] [place] #### TOMA SERUM, SPE, KAPPA #### [facility] , Serum globulin measurement b y calculation (mass/volume)Ordered By: Krzysztof Salazar on 09-20-2023 Globulin (S) [Mass/Vol] 3.5 g/dL Normal F [facility] Comment on above: Performed By: #### F ER, CMP, CBC, FE and TIBC #### [facility] [address] [place] [address] [place] #### TOMA SERUM, SPE, KAPPA #### [facility] , Serum or plasma albumin/glob ulin mass ratioOrdered By: Krzysztof Salazar on 09-20-2023 Albumin/Globulin [Mass ratio] 1.2 {ratio} Normal [facility] Comment on above: Performed By: #### F ER, CMP, CBC, FE and TIBC #### [facility] [address] [place] [address] [place] #### TOMA SERUM, SPE, KAPPA #### [facility] , Albumin/Globulin [Mass ratio] 1.0 {ratio} Normal 0.7-1.7 [facility] Comment on above: Performed By: #### F ER, CMP, CBC, FE and TIBC #### [facility] [address] [place] [address] [place] #### TOMA SERUM, SPE, KAPPA #### [facility] , Serum or plasma alpha 1 glob ulin measurement by electrophoresis (mass/volume)Ordered By: Krzysztof Salazar on 09-20-2023 Alpha 1 globulin Elph [Mass/Vol] 0.3 g/dL 0.0-0.4 [facility] Serum or plasma alpha 2 glob ulin measurement by electrophoresis (mass/volume)Ordered By: Krzysztof Salazar on 09-20-2023 Alpha 2 globulin Elph [Mass/Vol] 0.8 g/dL 0.4-1.0 [facility] Serum or plasma anion gap de terminationOrdered By: Krzysztof Salazar on 09-20-2023 Anion gap [Moles/Vol] 11.0 mmol/L Normal 6.0-15.0 [facility] Comment on above: Performed By: #### F ER, CMP, CBC, FE and TIBC #### [facility] [address] [place] [address] #### TOMA SERUM, SPE, KAPPA #### [facility] , Serum or plasma beta globuli n measurement by electrophoresis (mass/volume)Ordered By: Krzysztof Salazar on 09-20-2023 Beta globulin Elph [Mass/Vol] 1.2 g/dL 0.7-1.3 [facility] Serum or plasma gamma globul in measurement by electrophoresis (mass/volume)Ordered By: Krzysztof Salazar on 09-20-2023 Gamma globulin Elph [Mass/Vol] 1.8 g/dL 0.4-1.8 [facility] Sodium [Moles/volume] in Ser um or PlasmaOrdered By: Krzysztof Salazar on 09-20-2023 Sodium [Moles/Vol] 136 mmol/L Normal 136-145 [facility] Comment on above: Performed By: #### F ER, CMP, CBC, FE and TIBC #### [place] [address] [place] #### TOMA SERUM, SPE, KAPPA #### [facility] , Transferrin [Mass/volume] in Serum or PlasmaOrdered By: Krzysztof Salazar on 09-20-2023 Transferrin [Mass/Vol] 246 mg/dL Normal 203-362 [facility] Comment on above: Performed By: #### F ER, CMP, CBC, FE and TIBC #### [facility] [address] [place] [address] #### TOMA SERUM, SPE, KAPPA #### [facility] , Urea nitrogen [Mass/volume] in Serum or PlasmaOrdered By: Krzysztof Salazar on 09-20-2023 Urea nitrogen [Mass/Vol] 16 mg/dL Normal 7-25 [facility] Comment on above: Performed By: #### F ER, CMP, CBC, FE and TIBC #### [facility] [address] [place] [id number] [place] #### TOMA SERUM, SPE, KAPPA #### [facility] , US pelvic completeon 024 US pelvic complete [facility] [place] [address] [id number] Ultrasound Report Signed Patient: Geeta Shelton MR#: [id number] : 1970 Acct:[id number] Age/Sex: 53 / F ADM Date: 09/07/23 Loc: Room: Type: [facility] Attending Dr: Elizabeth Alvarado APRN, NP-C Ordering Provider: Elizabeth Alvarado APRN, CNP Date of Service: 09/07/23 US/US transvaginal: Abnormal vaginal bleeding ([id number]) US/US pelvic complete: Abnormal vaginal bleeding Copies [...] seen. Impression dictated by: Jesus Davis Jr., D.O.09/07/2023 2:39 PM Dictation Location: [place] [address] Tech: Jessica Sinclairvolodymyr Transcribed By: SEJAL 09/07/23 8478 Dictated By: Jesus Davis Jr, DO 09/07/23 1437 Signed By: 09/07/23 1439 Normal [facility] Replaced By [facility] Alanine aminotransferase [En zymatic activity/volume] in Serum or PlasmaOrdered By: Elizabeth Alvarado on 08-24-2023 ALT [Catalytic activity/Vol] 28 U/L Normal 7-52 [facility] Comment on above: Order Comment: Reaso n for Exam Type 2 diabetes mellitus without complication, without long- Performed By: #### F ER, CMP, CBC, FE and TIBC #### [facility] [address] [place] [address] #### TOMA SERUM, SPE, KAPPA #### [facility] , Albumin [Mass/volume] in Ser um or Plasma by Bromocresol green (BCG) dye binding methoOrdered By: Elizabeth Alvarado on 08-24-2023 Albumin BCG dye [Mass/Vol] 4.3 g/dL 3.5-5.7 [facility] Alkaline phosphatase [Enzyma tic activity/volume] in Serum or PlasmaOrdered By: Elizabeth Alvarado on 08-24-2023 ALP [Catalytic activity/Vol] 86 U/L Normal 34-104 [facility] Comment on above: Order Comment: Reaso n for Exam Type 2 diabetes mellitus without complication, without long- Performed By: #### F ER, CMP, CBC, FE and TIBC #### [facility] [address] [place] [address] [place] #### TOMA SERUM, SPE, KAPPA #### [facility] , Aspartate aminotransferase [ Enzymatic activity/volume] in Serum or PlasmaOrdered By: Elizabeth Alvarado on 08-24-2023 AST [Catalytic activity/Vol] 28 U/L Normal 13-39 [facility] Comment on above: Order Comment: Reaso n for Exam Type 2 diabetes mellitus without complication, without long- Performed By: #### F ER, CMP, CBC, FE and TIBC #### [facility] [address] [place] [address] [place] #### TOMA SERUM, SPE, KAPPA #### [facility] , Automated basophil %Ordered By: Elizabeth Alvarado on 08-24-2023 Basophils/100 WBC (Bld) 0.7 % Normal . [facility] Comment on above: Order Comment: Reaso n for Exam Type 2 diabetes mellitus without complication, without long- Performed By: #### T SH3 wRFLX, LIPID, CBC, CMP #### [facility] [address] Automated basophil countOrde red By: Elizabeth Alvarado on 08-24-2023 Basophils (Bld) [#/Vol] 0.1 10*3/uL Normal 0.0-0.2 [facility] Comment on above: Order Comment: Reaso n for Exam Type 2 diabetes mellitus without complication, without long- Result Comment: PERF ORMED BY: [place] [address] PATHOLOGIST LOOM FIXER MELODY ELAM M.D. Performed By: #### T SH3 wRFLX, LIPID, CBC, CMP #### [address] Automated blood monocyte cou ntOrdered By: Elizabeth Alvarado on 08-24-2023 Monocytes (Bld) [#/Vol] 0.8 10*3/uL Normal 0.0-0.8 [facility] Comment on above: Order Comment: Reaso n for Exam Type 2 diabetes mellitus without complication, without long- Performed By: #### T SH3 wRFLX, LIPID, CBC, CMP #### [address] Automated eosinophil %Ordere d By: Elizabeth Alvarado on 08-24-2023 Eosinophils/100 WBC (Bld) 3.3 % Normal . [facility] Comment on above: Order Comment: Reaso n for Exam Type 2 diabetes mellitus without complication, without long- Performed By: #### T SH3 wRFLX, LIPID, CBC, CMP #### [address] Automated eosinophil countOr dered By: Elizabeth Alvarado on 08-24-2023 Eosinophils (Bld) [#/Vol] 0.3 10*3/uL Normal 0.0-0.45 [facility] Comment on above: Order Comment: Reaso n for Exam Type 2 diabetes mellitus without complication, without long- Performed By: #### T SH3 wRFLX, LIPID, CBC, CMP #### [facility] [address] Automated monocyte %Ordered By: Elizabeth Alvarado on 08-24-2023 Monocytes/100 WBC (Bld) 8.1 % Normal . [facility] Comment on above: Order Comment: Reaso n for Exam Type 2 diabetes mellitus without complication, without long- Performed By: #### T SH3 wRFLX, LIPID, CBC, CMP #### [facility] [address] Automated neutrophil %Ordere d By: Elizabeth Alvarado on 08-24-2023 Neutrophils/100 WBC (Bld) 62.4 % Normal . [facility] Comment on above: Order Comment: Reaso n for Exam Type 2 diabetes mellitus without complication, without long- Performed By: #### T SH3 wRFLX, LIPID, CBC, CMP #### [facility] [address] [place] [address] Bilirubin.total [Mass/volume ] in Serum or PlasmaOrdered By: Elizabeth Alvarado on 08-24-2023 Bilirubin [Mass/Vol] 0.4 mg/dL Normal 0.3-1.0 [facility] Comment on above: Order Comment: Reaso n for Exam Type 2 diabetes mellitus without complication, without long- Performed By: #### F ER, CMP, CBC, FE and TIBC #### [facility] [address] [place] [address] [place] #### TOMA SERUM, SPE, KAPPA #### [facility] , Calcium [Mass/volume] in Ser um or PlasmaOrdered By: Elizabeth Alvarado on 08-24-2023 Calcium [Mass/Vol] 9.4 mg/dL Normal 8.6-10.3 [facility] Comment on above: Order Comment: Reaso n for Exam Type 2 diabetes mellitus without complication, without long- Performed By: #### F ER, CMP, CBC, FE and TIBC #### [facility] [address] [place] [address] [place] #### TOMA SERUM, SPE, KAPPA #### [facility] , Carbon dioxide, total [Moles /volume] in Serum or PlasmaOrdered By: Elizabeth Alvarado on 08-24-2023 CO2 [Moles/Vol] 29.2 mmol/L Normal 21.0-31.0 [facility] Comment on above: Order Comment: Reaso n for Exam Type 2 diabetes mellitus without complication, without long- Performed By: #### F ER, CMP, CBC, FE and TIBC #### [facility] [address] [place] [address] #### TOMA SERUM, SPE, KAPPA #### [facility] , Chloride [Moles/volume] in S hugo or PlasmaOrdered By: Elizabeth Alvarado on 08-24-2023 Chloride [Moles/Vol] 96 mmol/L Low 98-107 [facility] Comment on above: Order Comment: Reaso n for Exam Type 2 diabetes mellitus without complication, without long- Performed By: #### F ER, CMP, CBC, FE and TIBC #### [facility] [address] [place] [address] #### TOMA SERUM, SPE, KAPPA #### [facility] , Cholesterol [Mass/volume] in Serum or PlasmaOrdered By: Elizabeth Alvarado on 08-24-2023 Cholesterol [Mass/Vol] 160 mg/dL Normal 140-200 [facility] Comment on above: Chol less than [...] ER, CMP, CBC, FE and TIBC #### [facility] [address] [place] [address] #### TOMA SERUM, SPE, KAPPA #### [facility] , Cholesterol in LDL Calc [Mas s/Vol]Ordered By: Elizabeth Alvarado on 08-24-2023 Cholesterol in LDL [Mass/Vol] 78 mg/dL 0-100 [facility] Comment on above: LDL ATP III CLASSIFI CATIONLDL less than 100 mg/dL OptimalLDL 100-129 mg/dL Near or above optimalLDL 130-159 mg/dL Borderline highLDL 160-189 mg/dL HighLDL greater than 189 mg/dL Very high Cholesterol in VLDL Calc [Ma ss/Vol]Ordered By: Elizabeth Alvarado on 08-24-2023 Cholesterol in VLDL [Mass/Vol] 22 mg/dL [facility] Complete Blood Count Auto Di ffon 08-24-2023 Mean Corpuscular HGB Conc 32.5 g/dL Normal 32.0-35.0 The Replaced By [facility] Comment on above: Order Comment: Reaso n for Exam Type 2 diabetes mellitus without complication, without long- Performed By: #### T SH3 wRFLX, LIPID, CBC, CMP #### [address] NRBC% 0.2 /100{WBC} Normal 0-0.5 [facility]placed By [facility] Comment on above: Order Comment: Reaso n for Exam Type 2 diabetes mellitus without complication, without long- Performed By: #### T SH3 wRFLX, LIPID, CBC, CMP #### [address] Comprehensive Metabolic Pane gretel 08-24-2023 Albumin [Mass/Vol] 4.3 g/dL Normal 3.5-5.7 The [facility]placed By [facility] Comment on above: Order Comment: Reaso n for Exam Type 2 diabetes mellitus without complication, without long- Performed By: #### F ER, CMP, CBC, FE and TIBC #### [address] #### TOMA SERUM, SPE, KAPPA #### [facility] , GFR/1.73 sq M.predicted MDRD (S/P/Bld) [Vol rate/Area] mL/min/{1.73_m2} Normal [facility]placed By [facility] Comment on above: Order Comment: Reaso n for Exam Type 2 diabetes mellitus without complication, without long- Performed By: #### F ER, CMP, CBC, FE and TIBC #### [facility] [address] [place] [address] #### TOMA SERUM, SPE, KAPPA #### [facility] , Creatinine [Mass/volume] in Serum or PlasmaOrdered By: Elizabeth Alvarado on 08-24-2023 Creatinine [Mass/Vol] 0.65 mg/dL Normal 0.60-1.20 [facility] Comment on above: Order Comment: Reaso n for Exam Type 2 diabetes mellitus without complication, without long- Performed By: #### F ER, CMP, CBC, FE and TIBC #### [facility] [address] [place] [address] #### TOMA SERUM, SPE, KAPPA #### [facility] , Creatinine [Mass/volume] in UrineOrdered By: Elizabeth Alvarado on 08-24-2023 Creatinine (U) [Mass/Vol] 76.0 mg/dL [facility] Comment on above: No reference range e stablished Erythrocyte distribution wid th [Ratio] by Automated countOrdered By: Elizabeth Alvarado on 08-24-2023 Erythrocyte distribution width (RBC) [Ratio] 15.8 % High 11.9-15.3 [facility] Comment on above: Order Comment: Reaso n for Exam Type 2 diabetes mellitus without complication, without long- Performed By: #### T SH3 wRFLX, LIPID, CBC, CMP #### [facility] [address] [place] [address] Erythrocytes [#/volume] in B lood by Automated countOrdered By: Elizabeth Alvarado on 08-24-2023 RBC (Bld) [#/Vol] 5.06 10*6/uL High 3.60-5.00 [facility] Comment on above: Order Comment: Reaso n for Exam Type 2 diabetes mellitus without complication, without long- Performed By: #### T SH3 wRFLX, LIPID, CBC, CMP #### [facility] [address] Glucose [Mass/volume] in Ser um or PlasmaOrdered By: Elizabeth Alvarado on 08-24-2023 Glucose [Mass/Vol] 92 mg/dL Normal 70-100 [facility] Comment on above: ADA recommended refe rence rangeRandom Glucose Reference Range is dependent on time and content of last meal. Glucose of more than 200 mg/dL in a nonstressed, ambulatory subject supports the diagnosis of Diabetes Mellitus. Order Comment: Reaso n for Exam Type 2 diabetes mellitus without complication, without long- Result Comment: [place] om Glucose Reference Range is dependent on time and content of last meal. Glucose of more than 200 mg/dL in a nonstressed, ambulatory subject supports the diagnosis of Diabetes Mellitus. ADA recommended reference range Performed By: #### F ER, CMP, CBC, FE and TIBC #### [facility] [address] [place] [address] #### TOMA SERUM, SPE, KAPPA #### [facility] , Hematocrit [Volume Fraction] of Blood by Automated countOrdered By: Elizabeth Alvarado on 08-24-2023 Hematocrit (Bld) [Volume fraction] 40.6 % Normal 34.0-46.4 [facility] Comment on above: Order Comment: Reaso n for Exam Type 2 diabetes mellitus without complication, without long- Performed By: #### T SH3 wRFLX, LIPID, CBC, CMP #### [facility] [address] Hemoglobin [Mass/volume] in BloodOrdered By: Elizabeth Alvarado on 08-24-2023 Hemoglobin (Bld) [Mass/Vol] 13.2 g/dL Normal 11.8-15.4 [facility] Comment on above: Order Comment: Reaso n for Exam Type 2 diabetes mellitus without complication, without long- Performed By: #### T SH3 wRFLX, LIPID, CBC, CMP #### [facility] [address] Leukocytes [#/volume] correc silverio for nucleated erythrocytes in Blood by Automated counOrdered By: Elizabeth Alvarado on 08-24-2023 WBC corrected for nucl RBC Auto (Bld) [#/Vol] 10.2 10*3/uL 3.8-11.6 [facility] Leukocytes [#/volume] in Blo od by Automated countOrdered By: Elizabeth Alvarado on 08-24-2023 WBC (Bld) [#/Vol] 10.2 10*3/uL Normal 3.8-11.6 [facility] Comment on above: Order Comment: Reaso n for Exam Type 2 diabetes mellitus without complication, without long- Performed By: #### T SH3 wRFLX, LIPID, CBC, CMP #### [facility] [address] [place] [address] Lipid Panelon 08-24-2023 LDL Cholesterol,Calculated 78 mg/dL Normal 0-100 [facility]placed By [facility] Comment on above: Order Comment: [...] ER, CMP, CBC, FE and TIBC #### [facility] [address] [place] [address] #### TOMA SERUM, SPE, KAPPA #### [facility] , Triglyceride w/Reflex 112 mg/dL Normal 0-149 The Replaced By [facility] Comment on above: Order Comment: [...] ER, CMP, CBC, FE and TIBC #### [address] #### TOMA SERUM, SPE, KAPPA #### [facility] , VLDL CHOLESTEROL 22 mg/dL Normal The [facility]placed By [facility] Comment on above: Order Comment: Reaso n for Exam Type 2 diabetes mellitus without complication, without long- Performed By: #### F ER, CMP, CBC, FE and TIBC #### [address] #### TOMA SERUM, SPE, KAPPA #### [facility] , Lymphocytes [#/volume] in Bl ood by Automated countOrdered By: Elizabeth Alvarado on 08-24-2023 Lymphocytes (Bld) [#/Vol] 2.6 10*3/uL Normal 1.00-4.8 [facility] Comment on above: Order Comment: Reaso n for Exam Type 2 diabetes mellitus without complication, without long- Performed By: #### T SH3 wRFLX, LIPID, CBC, CMP #### [address] Lymphocytes/100 leukocytes i n Blood by Automated countOrdered By: Elizabeth Alvarado on 08-24-2023 Lymphocytes/100 WBC (Bld) 25.5 % Normal . [facility] Comment on above: Order Comment: Reaso n for Exam Type 2 diabetes mellitus without complication, without long- Performed By: #### T SH3 wRFLX, LIPID, CBC, CMP #### [address] MCH [Entitic mass] by Automa silverio countOrdered By: Elizabeth Alvarado on 08-24-2023 MCH (RBC) [Entitic mass] 26.1 pg Normal 24.7-34.3 [facility] Comment on above: Order Comment: Reaso n for Exam Type 2 diabetes mellitus without complication, without long- Performed By: #### T SH3 wRFLX, LIPID, CBC, CMP #### [address] MCHC Auto (RBC) [Mass/Vol]Or dered By: Elizabeth Alvarado on 08-24-2023 MCHC (RBC) [Mass/Vol] 32.5 g/dL 32.0-35.0 [facility] MCV [Entitic volume] by Auto mated countOrdered By: Elizabeth Alvarado on 08-24-2023 MCV (RBC) [Entitic vol] 80.3 fL Normal 80-[address] [facility] Comment on above: Order Comment: Reaso n for Exam Type 2 diabetes mellitus without complication, without long- Performed By: #### T SH3 wRFLX, LIPID, CBC, CMP #### [address] MicroAlb Creat Ratio,Uon Creatinine, Urine (Random) 76.0 mg/dL Normal [facility]placed By [facility] Comment on above: Order Comment: Reaso n for Exam Type 2 diabetes mellitus without complication, without long- Result Comment: No r eference range established Performed By: #### F ER, CMP, CBC, FE and TIBC #### [address] #### TOMA SERUM, SPE, KAPPA #### [facility] , Microalbumin/Creatinine Ratio Not performed Normal 0.0-30.0 The [facility]placed By [facility] Comment on above: Order Comment: Reaso n for Exam Type 2 diabetes mellitus without complication, without long- Result Comment: PERF ORMED BY: [place] [address] PATHOLOGIST LOOM FIXER MELODY ELAM M.D. Performed By: #### F ER, CMP, CBC, FE and TIBC #### [address] #### TOMA SERUM, SPE, KAPPA #### [facility] , Microalbumin [Mass/volume] i n UrineOrdered By: Elizabeth Alvarado on 08-24-2023 Albumin DL <= 20 mg/L (U) [Mass/Vol] mg/dL High 0.0-1.8 [facility] Comment on above: Order Comment: Reaso n for Exam Type 2 diabetes mellitus without complication, without long- Performed By: #### F ER, CMP, CBC, FE and TIBC #### [facility] [address] #### TOMA SERUM, SPE, KAPPA #### [facility] , Neutrophils [#/volume] in Bl ood by Automated countOrdered By: Elizabeth Alvarado on 08-24-2023 Neutrophils (Bld) [#/Vol] 6.4 10*3/uL Normal 1.8-7.7 [facility] Comment on above: Order Comment: Reaso n for Exam Type 2 diabetes mellitus without complication, without long- Performed By: #### T SH3 wRFLX, LIPID, CBC, CMP #### [facility] [address] [place] [address] No Panel InformationOrdered By: Elizabeth Alvarado on 08-24-2023 Estimated GFR (CKD-EPI) > 60.0 mL/Min [facility] Creatinine Clearance (Chem N/A [facility] Nucleated erythrocytes [Pres ence] in Blood by Automated countOrdered By: Elizabeth Alvarado on 08-24-2023 Nucleated RBC Auto Ql (Bld) 0.2 /100{WBC} 0-0.5 [facility] Platelet mean volume [Entiti c volume] in Blood by Automated countOrdered By: Elizabeth Alvarado on 08-24-2023 Platelet mean volume (Bld) [Entitic vol] 9.8 fL Normal 6.3-10.7 [facility] Comment on above: Order Comment: Reaso n for Exam Type 2 diabetes mellitus without complication, without long- Performed By: #### T SH3 wRFLX, LIPID, CBC, CMP #### [facility] [address] [place] [address] Platelets [#/volume] in Bloo d by Automated countOrdered By: Elizabeth Alvarado on 08-24-2023 Platelets (Bld) [#/Vol] 283 10*3/uL Normal 150-450 [facility] Comment on above: Order Comment: Reaso n for Exam Type 2 diabetes mellitus without complication, without long- Performed By: #### T SH3 wRFLX, LIPID, CBC, CMP #### [facility] [address] [place] [address] Potassium [Moles/volume] in Serum or PlasmaOrdered By: Elizabeth Alvarado on 08-24-2023 Potassium [Moles/Vol] 4.3 mmol/L Normal 3.5-5.1 [facility] Comment on above: Order Comment: Reaso n for Exam Type 2 diabetes mellitus without complication, without long- Performed By: #### F ER, CMP, CBC, FE and TIBC #### [facility] [address] [place] [address] #### TOMA SERUM, SPE, KAPPA #### [facility] , Protein [Mass/volume] in Ser um or PlasmaOrdered By: Elizabeth Alvarado on 08-24-2023 Protein [Mass/Vol] 7.7 g/dL Normal 6.4-8.9 [facility] Comment on above: Order Comment: Reaso n for Exam Type 2 diabetes mellitus without complication, without long- Performed By: #### F ER, CMP, CBC, FE and TIBC #### [facility] [address] [place] [address] #### TOMA SERUM, SPE, KAPPA #### [facility] , Serum globulin measurement b y calculation (mass/volume)Ordered By: Elizabeth Alvarado on 08-24-2023 Globulin (S) [Mass/Vol] 3.4 g/dL Normal [facility] Comment on above: Order Comment: Reaso n for Exam Type 2 diabetes mellitus without complication, without long- Performed By: #### F ER, CMP, CBC, FE and TIBC #### [facility] [address] [place] [address] #### TOMA SERUM, SPE, KAPPA #### [facility] , Serum or plasma albumin/glob ulin mass ratioOrdered By: Elizabeth Alvarado on 08-24-2023 Albumin/Globulin [Mass ratio] 1.3 {ratio} Normal [facility] Comment on above: Order Comment: Reaso n for Exam Type 2 diabetes mellitus without complication, without long- Performed By: #### F ER, CMP, CBC, FE and TIBC #### [facility] [address] [place] [address] [place] #### TOMA SERUM, SPE, KAPPA #### [facility] , Serum or plasma anion gap de terminationOrdered By: Elizabeth Alvarado on 08-24-2023 Anion gap [Moles/Vol] 18.1 mmol/L High 6.0-15.0 [facility] Comment on above: Order Comment: Reaso n for Exam Type 2 diabetes mellitus without complication, without long- Performed By: #### F ER, CMP, CBC, FE and TIBC #### [facility] [address] [place] [address] [place] #### TOMA SERUM, SPE, KAPPA #### [facility] , Serum or plasma high density lipoprotein (HDL) cholesterol measurementOrdered By: Elizabeth Alvarado on 08-24-2023 Cholesterol in HDL [Mass/Vol] 60 mg/dL Normal 23- [facility] Comment on above: HDL CHOL [...] ER, CMP, CBC, FE and TIBC #### [facility] [address] [place] [address] [place] #### TOMA SERUM, SPE, KAPPA #### [facility] , Serum or plasma total choles terol/high density lipoprotein (HDL) cholesterol mass ratOrdered By: Elizabeth Alvarado on 08-24-2023 Cholesterol.total/Choles terol in HDL [Mass ratio] 2.7 {ratio} Normal <5.0 [facility] Comment on above: Order Comment: Reaso n for Exam Type 2 diabetes mellitus without complication, without long- Performed By: #### F ER, CMP, CBC, FE and TIBC #### [address] #### TOMA SERUM, SPE, KAPPA #### [facility] , Sodium [Moles/volume] in Ser um or PlasmaOrdered By: Elizabeth Alvarado on 08-24-2023 Sodium [Moles/Vol] 139 mmol/L Normal 136-145 [facility] Comment on above: Order Comment: Reaso n for Exam Type 2 diabetes mellitus without complication, without long- Performed By: #### F ER, CMP, CBC, FE and TIBC #### [address] #### TOMA SERUM, SPE, KAPPA #### [facility] , Thyroid Stim Hormone w/Rflxo n 08-24-2023 Thyroid Stim Hormone w/Rflx 2.40 u[iU]/mL Normal 0.45-5.33 The Replaced By [facility] Comment on above: Order Comment: Reaso n for Exam Type 2 diabetes mellitus without complication, without long- Result Comment: PERF ORMED BY: [place] [address] PATHOLOGIST LOOM FIXER MELODY ELAM M.D. Performed By: #### F ER, CMP, CBC, FE and TIBC #### [address] #### TOMA SERUM, SPE, KAPPA #### [facility] , Thyrotropin [Units/volume] i n Serum or PlasmaOrdered By: Elizabeth Alvarado on 08-24-2023 TSH Qn 2.40 m[IU]/L 0.45-5.33 [facility] Triglyceride [Mass/volume] i n Serum or PlasmaOrdered By: Elizabeth Alvarado on 08-24-2023 Triglyceride [Mass/Vol] 112 mg/dL 0-[address] [facility] Comment on above: TRIG ATP III CLASSIF ICATIONTRIG less than 150 mg/dL NormalTRIG 150-199 mg/dL Borderline highTRIG 200-500 mg/dL High TRIG greater than 500 mg/dL Very highStandard traceable to the Center for Disease Conrtrol and Prevention (CDC) test method. Urea nitrogen [Mass/volume] in Serum or PlasmaOrdered By: Elizabeth Alvarado on 08-24-2023 Urea nitrogen [Mass/Vol] 17 mg/dL Normal 7-25 [facility] Comment on above: Order Comment: Reaso n for Exam Type 2 diabetes mellitus without complication, without long- Performed By: #### F ER, CMP, CBC, FE and TIBC #### [facility] [address] #### TOMA SERUM, SPE, KAPPA #### [facility] , Urine microalbumin/creatinin e mass ratioOrdered By: Elizabeth Alvarado on 08-24-2023 Albumin/Creatinine DL <= 20 mg/L (U) [Mass ratio] TNP [facility] Comment on above: Test not performed MM screening mammo BI w/CADo n 05-10-2023 MM screening mammo BI w/CAD [facility] [address] [place] [address] [place] [address] Mammography Report Signed Patient: Geeta Shelton MR#: [id number] : 1970 Acct:[id number] Age/Sex: 53 / F ADM Date: 05/10/23 Loc: [place] Room: Type: [facility] Attending Dr: Elizabeth Alvarado APRN, RETURNED ITEM CLERK-C Copies to: Elizabeth Alvarado APRN, CNP Ordering [...] Mary Colon M.D.05/10/2023 10:10 AM Dictation Location: [facility] Transcribed By: [facility] 05/10/23 1010 Dictated By: Mary Colon MD 05/10/23 1007 Signed By: 05/10/23 1010 Normal The Replaced By [facility] Established Visit (Orthopaed ic Surgery)on [...] grammatical areas may persist related to the Qriously software Merrill Alejandro PA-C . Active Problems [...] Dec 29 2022 1:38PM EST (Author) Normal LiB Established Visit (Orthopaed ic Surgery)on 09-22-2022 Established Visit (Orthopaedic Surgery) Diagnoses/Problems Assessed Status post total knee replacement (V43.65) (Z96.659) Orders Status post total knee replacement Xray Knee 3 View; Status:Complete; Done: [id number] 01:48PM Laterality : Right Radiologist to Determine [...] grammatical areas may persist related to the Qriously software Acosta Schafer MD Senior Attending Physician [facility] . Active Problems Problems Acute pain of [...] 1 tablet daily Results/Data Xray Knee 3 [id number] 01:48PMAcosta Schafer Test NameResultFlagReference Xray Knee 3 View(Report) FINAL REPORT Interpreted by: ACOSTA SCHAFER BURTON, MD 09/22/22 14:13 Patient Name: GEETA SHELTON STUDY: KNEE; 3 VIEWS; Right; 09/22/2022 1:48 pm INDICATION: pain Z96.659: Status post total knee replacement. ACCESSION NUMBER(S): [id number] ORDERING CLINICIAN: ACOSTA SCHAFER FINDINGS: Right knee [...] Status post total knee replacement. ACCESSION NUMBER(S): [id number] ORDERING CLINICIAN: ACOSTA SCHAFER FINDINGS: Right knee three views. Status post revision total knee replacement components in good position no signs of fracture dislocation or other bony abnormalities Electronically signed by: ACOSTA SCHAFER MD Normal [facility] Radiologyon 09-22-2022 XR Knee 3 Views Normal -[facility] Work Phone: Alanine aminotransferase [En zymatic activity/volume] in Serum or PlasmaOrdered By: Zoey Ramirez on 08-17-2022 ALT [Catalytic activity/Vol] 45 U/L 7-52 [facility] Albumin [Mass/volume] in Ser um or PlasmaOrdered By: Zoey Ramirez on 08-17-2022 Albumin [Mass/Vol] 3.7 g/dL 2.9-4.4 [facility] Albumin [Mass/volume] in Ser um or Plasma by Bromocresol green (BCG) dye binding methoOrdered By: Zoey Ramirez on 08-17-2022 Albumin BCG dye [Mass/Vol] 4.1 g/dL 3.5-5.7 [facility] Albumin/Protein.total in 24 hour Urine by ElectrophoresisOrdered By: Zoey Ramirez on 08-17-2022 Albumin Elph (24H U) [Mass fraction] 59.9 % . [facility] Alkaline phosphatase [Enzyma tic activity/volume] in Serum or PlasmaOrdered By: Zoey Ramirez on 08-17-2022 ALP [Catalytic activity/Vol] 90 U/L 34-104 [facility] Aspartate aminotransferase [ Enzymatic activity/volume] in Serum or PlasmaOrdered By: Zoey Ramirez on 08-17-2022 AST [Catalytic activity/Vol] 40 U/L 13-39 [facility] Basophils Auto (Bld) [#/Vol] Ordered By: Zoey Ramirez on 08-17-2022 Basophils (Bld) [#/Vol] 0.1 10*3/uL 0.0-0.2 [facility] Basophils/100 WBC Auto (Bld) Ordered By: Zoey Ramirez on 08-17-2022 Basophils/100 WBC (Bld) 0.9 % . [facility] Bilirubin.total [Mass/volume ] in Serum or PlasmaOrdered By: Zoey Ramirez on 08-17-2022 Bilirubin [Mass/Vol] 0.4 mg/dL 0.3-1.0 [facility] Calcium [Mass/volume] in Ser um or PlasmaOrdered By: Zoey Ramirez on 08-17-2022 Calcium [Mass/Vol] 9.1 mg/dL 8.6-10.3 [facility] Carbon dioxide, total [Moles /volume] in Serum or PlasmaOrdered By: Zoey Ramirez on 08-17-2022 CO2 [Moles/Vol] 27.9 mmol/L 21.0-31.0 [facility] Chloride [Moles/volume] in S hugo or PlasmaOrdered By: Zoey Ramirez on 08-17-2022 Chloride [Moles/Vol] 100 mmol/L 98-107 [facility] Creatinine [Mass/volume] in Serum or PlasmaOrdered By: Zoey Ramirez on 08-17-2022 Creatinine [Mass/Vol] 0.71 mg/dL 0.60-1.20 [facility] Eosinophils Auto (Bld) [#/Vo l]Ordered By: Zoey Ramirez on 08-17-2022 Eosinophils (Bld) [#/Vol] 0.3 10*3/uL 0.0-0.45 [facility] Eosinophils/100 WBC Auto (Bl d)Ordered By: Zoey Ramirez on 08-17-2022 Eosinophils/100 WBC (Bld) 3.1 % . [facility] Erythrocyte distribution wid th Auto (RBC) [Ratio]Ordered By: Zoey Ramirez on 08-17-2022 Erythrocyte distribution width (RBC) [Ratio] 16.5 % 11.9-15.3 [facility] Ferritin [Mass/volume] in Se rum or PlasmaOrdered By: Zoey Ramirez on 08-17-2022 Ferritin [Mass/Vol] 85.3 ng/mL 11.0-306.8 [facility] Folate [Mass/volume] in Seru m or PlasmaOrdered By: Zoey Ramirez on 08-17-2022 Folate [Mass/Vol] 15.1 ng/mL >5.9 [facility] Comment on above: Folate reference ran ge: >5.9 ng/mlThe WHO technical consultation on folate and vitamin [id number] has determined that folate concentrations lessthan 4 ng/ml are considered deficient. Gamma globulin/Protein.total in 24 hour Urine by ElectrophoresisOrdered By: Zoey Ramirez on 08-17-2022 Gamma globulin Elph (24H U) [Mass fraction] 15.3 % . [facility] Globulin Calc (S) [Mass/Vol] Ordered By: Zoey Ramirez on 08-17-2022 Globulin (S) [Mass/Vol] 4.0 g/dL [facility] Glucose [Mass/volume] in Ser um or PlasmaOrdered By: Zoey Ramirez on 08-17-2022 Glucose [Mass/Vol] 142 mg/dL 70-100 [facility] Comment on above: ADA recommended refe rence rangeRandom Glucose Reference Range is dependent on time and content of last meal. Glucose of more than 200 mg/dL in a nonstressed, ambulatory subject supports the diagnosis of Diabetes Mellitus. Hematocrit Auto (Bld) [Volum e fraction]Ordered By: Zoey Ramirez on 08-17-2022 Hematocrit (Bld) [Volume fraction] 41.3 % 34.0-46.4 [facility] Hemoglobin [Mass/volume] in BloodOrdered By: Zoey Ramirez 08-17-2022 Hemoglobin (Bld) [Mass/Vol] 13.2 g/dL 11.8-15.4 [facility] IgA [Mass/volume] in Serum o r PlasmaOrdered By: Zoey Ramirez on 08-17-2022 IgA [Mass/Vol] 498 mg/dL 87-352 [facility] IgG [Mass/volume] in Serum o r PlasmaOrdered By: Zoey Ramirez on 08-17-2022 IgG [Mass/Vol] 1834 mg/dL 586-1602 [facility] IgM [Mass/volume] in Serum o r PlasmaOrdered By: Zoey Ramirez on 08-17-2022 IgM [Mass/Vol] 124 mg/dL 26-217 [facility] Comment on above: Performed at: [employer] [facility] [address] [id number] Director: Jeyson Duncan PhD, Phone: [phone] Immunofixation for UrineOrde red By: Zoey Ramirez on 08-17-2022 Interpretation Immunofixation (U) [Interp] See comment . [facility] Comment on above: No monoclonality det ected.Performed at: [facility] [address] [id number] Director: Jeyson Duncan PhD, Phone: [phone] Immunoglobulin light chains. kappa.free [Mass/volume] in SerumOrdered By: Zoey Ramirez on 08-17-2022 Immunoglobulin light chains.kappa.free (S) [Mass/Vol] 47.1 mg/L 3.3-19.4 [facility] Immunoglobulin light chains. kappa.free/Immunoglobulin light chains.lambda.free [MassOrdered By: Zoey Ramirez on 08-17-2022 Immunoglobulin light chains.kappa.free/Immuno globulin light chains.lambda.free (S) [Mass ratio] 1.65 0.26-1.65 [facility] Comment on above: Performed at: [employer] ([employer]) [id number] [place] [id number] Director: Jeyson Duncan PhD, Phone: [phone] Immunoglobulin light chains. lambda.free [Mass/volume] in Serum or PlasmaOrdered By: Zoey Ramirez on 08-17-2022 Immunoglobulin light chains.lambda.free [Mass/Vol] 28.6 mg/L 5.7-26.3 [facility] Iron [Mass/volume] in Serum or PlasmaOrdered By: Zoey Ramirez on 08-17-2022 Iron [Mass/Vol] 41 ug/dL 50-212 [facility] Iron binding capacity [Mass/ volume] in Serum or PlasmaOrdered By: Zoey Ramirez on 08-17-2022 Iron binding capacity [Mass/Vol] 344 ug/dL 255-450 [facility] Iron saturation [Mass Fracti on] in Serum or PlasmaOrdered By: Zoey Ramirez on 08-17-2022 Iron saturation [Mass fraction] 11.9 % 20-50 [facility] Leukocytes [#/volume] correc silverio for nucleated erythrocytes in Blood by Automated counOrdered By: Zoey Ramirez on 08-17-2022 WBC corrected for nucl RBC Auto (Bld) [#/Vol] 9.9 10*3/uL 3.8-11.6 [facility] Lymphocytes Auto (Bld) [#/Vo l]Ordered By: Zoey Ramirez on 08-17-2022 Lymphocytes (Bld) [#/Vol] 2.8 10*3/uL 1.00-4.8 [facility] Lymphocytes/100 WBC Auto (Bl d)Ordered By: Zoey Ramirez on 08-17-2022 Lymphocytes/100 WBC (Bld) 28.5 % . [facility] MCH Auto (RBC) [Entitic mass ]Ordered By: Zoey Ramirez on 08-17-2022 MCH (RBC) [Entitic mass] 24.9 pg 24.7-34.3 [facility] MCHC Auto (RBC) [Mass/Vol]Or dered By: Zoey Ramirez on 08-17-2022 MCHC (RBC) [Mass/Vol] 32.0 g/dL 32.0-35.0 [facility] MCV Auto (RBC) [Entitic vol] Ordered By: Zoey Ramirez on 04-25-2023 MCV (RBC) [Entitic vol] 77.8 fL 80-[address] [facility] Monocytes Auto (Bld) [#/Vol] Ordered By: Zoey Ramirez on 08-17-2022 Monocytes (Bld) [#/Vol] 0.6 10*3/uL 0.0-0.8 [facility] Monocytes/100 WBC Auto (Bld) Ordered By: Zoey Ramirez on 08-17-2022 Monocytes/100 WBC (Bld) 5.9 % . [facility] Neutrophils Auto (Bld) [#/Vo l]Ordered By: Zoey Ramirez on 08-17-2022 Neutrophils (Bld) [#/Vol] 6.1 10*3/uL 1.8-7.7 [facility] Neutrophils/100 WBC Auto (Bl d)Ordered By: Zoey Ramirez on 08-17-2022 Neutrophils/100 WBC (Bld) 61.6 % . [facility] No Panel InformationOrdered By: Zoey Ramirez on 08-17-2022 Estimated GFR (CKD-EPI) > 60.0 mL/Min [facility] Creatinine Clearance (Chem 122.85 [facility] Protein Electrophoresis M-Antwan Not observed g/dL Not Observed [facility] Protein Electrophoresis Note See comment . [facility] Comment on above: Protein electrophore sis scan will follow via computer,mail, or information assurance officer delivery.Performed at: [facility] [place] [id number] Director: Jeyson Duncan PhD, Phone: [phone] Serum Immunofixation Comment: . [facility] Comment on above: Presence of monoclon al protein is unclear at this time. Suggestrepeat in 3 to 6 months if clinically indicated. Urine Random Prot Electrophor Note See comment . [facility] Comment on above: Protein electrophore sis scan will follow via computer,mail, or information assurance officer delivery.Performed at: [facility] [place], [place] [id number] Director: Jeyson Duncan PhD, Phone: [phone] Nucleated erythrocytes [Pres ence] in Blood by Automated countOrdered By: Zoey Ramirez on 08-17-2022 Nucleated RBC Auto Ql (Bld) 0.1 /100{WBC} 0-0.5 [facility] Platelet mean volume Auto (B ld) [Entitic vol]Ordered By: Zoey Ramirez on 08-17-2022 Platelet mean volume (Bld) [Entitic vol] 8.5 fL 6.3-10.7 [facility] Platelets Auto (Bld) [#/Vol] Ordered By: Zoey Ramirez on 08-17-2022 Platelets (Bld) [#/Vol] 345 10*3/uL 150-450 [facility] Potassium [Moles/volume] in Serum or PlasmaOrdered By: Zoey Ramirez on 08-17-2022 Potassium [Moles/Vol] 4.7 mmol/L 3.5-5.1 [facility] Protein [Mass/volume] in Ser um or PlasmaOrdered By: Zoey Ramirez on 08-17-2022 Protein [Mass/Vol] 8.1 g/dL 6.4-8.9 [facility] Protein [Mass/Vol] 8.0 g/dL 6.0-8.5 [facility] Protein [Mass/volume] in Uri neOrdered By: Zoey Ramirez on 08-17-2022 Protein (U) [Mass/Vol] 75.0 mg/dL Not Estab. Fi [facility] Protein.monoclonal/Protein.t otal in 24 hour Urine by ElectrophoresisOrdered By: Zoey Ramirez on 08-17-2022 Protein.monoclonal Elph (24H U) [Mass fraction] Not observed % Not Observed [facility] RBC Auto (Bld) [#/Vol]Ordere d By: Zoey Ramirez on 08-17-2022 RBC (Bld) [#/Vol] 5.31 10*6/uL 3.60-5.00 [facility] Serum globulin measurement ( mass/volume)Ordered By: Zoey Ramirez on 08-17-2022 Globulin (S) [Mass/Vol] 4.3 g/dL 2.2-3.9 [facility] Serum or plasma albumin/glob ulin mass ratioOrdered By: Zoey Ramirez on 08-17-2022 Albumin/Globulin [Mass ratio] 1.0 {ratio} [facility] Albumin/Globulin [Mass ratio] 0.9 {ratio} 0.7-1.7 [facility] Serum or plasma alpha 1 glob ulin measurement by electrophoresis (mass/volume)Ordered By: Zoey Ramirez on 08-17-2022 Alpha 1 globulin Elph [Mass/Vol] 0.3 g/dL 0.0-0.4 [facility] Serum or plasma alpha 2 glob ulin measurement by electrophoresis (mass/volume)Ordered By: Zoey Ramirez on 08-17-2022 Alpha 2 globulin Elph [Mass/Vol] 0.8 g/dL 0.4-1.0 [facility] Serum or plasma anion gap de terminationOrdered By: Zoey Ramirez 08-17-2022 Anion gap [Moles/Vol] 12.8 mmol/L 6.0-15.0 [facility] Serum or plasma beta globuli n measurement by electrophoresis (mass/volume)Ordered By: Zoey Ramirez 08-17-2022 Beta globulin Elph [Mass/Vol] 1.3 g/dL 0.7-1.3 [facility] Serum or plasma gamma globul in measurement by electrophoresis (mass/volume)Ordered By: Zoey Ramirez 08-17-2022 Gamma globulin Elph [Mass/Vol] 1.9 g/dL 0.4-1.8 [facility] Sodium [Moles/volume] in Ser um or PlasmaOrdered By: Zoey Ramirez on 08-17-2022 Sodium [Moles/Vol] 136 mmol/L 136-145 [facility] Transferrin [Mass/volume] in Serum or PlasmaOrdered By: Zoey Ramirez on 08-17-2022 Transferrin [Mass/Vol] 246 mg/dL 203-362 [facility] Urea nitrogen [Mass/volume] in Serum or PlasmaOrdered By: Zoey Ramirez on 08-17-2022 Urea nitrogen [Mass/Vol] 23 mg/dL 11-16 [facility] Urine alpha 1 globulin/total protein by electrophoresisOrdered By: Zoey Ramirez on 08-17-2022 Alpha 1 globulin Elph (U) [Mass fraction] 4.5 % . [facility] Urine alpha 2 globulin/total protein ratio by electrophoresisOrdered By: Zoeyelvin Ramirez on 08-17-2022 Alpha 2 globulin Elph (U) [Mass fraction] 7.7 % . [facility] Urine beta globulin measurem ent by electrophoresis (mass/volume)Ordered By: Zoeyelvin Ramirez on 08-17-2022 Beta globulin Elph (U) [Mass/Vol] 12.6 % . [facility] Vitamin B12 ser/plasOrdered By: Zoeyelvin Ramirez on 08-17-2022 Cobalamin (Vitamin B12) [Mass/Vol] 387 pg/mL 180-914 [facility] WBC Auto (Bld) [#/Vol]Ordere d By: Zoey Ramirez on 08-17-2022 WBC (Bld) [#/Vol] 9.9 10*3/uL 3.8-11.6 [facility] Established Visit (Orthopaed ic Surgery)on 08-11-2022 Established [...] to do her outpatient physical therapy at [facility]. She has a few visits left. She [...] on 07-23-2022 Albumin [Mass/Vol] 3.3 g/dL 2.9-4.4 [facility] Creatine kinase [Enzymatic a ctivity/volume] in Serum or PlasmaOrdered By: Lorrie Baig on 07-23-2022 CK [Catalytic activity/Vol] 51 U/L 30-223 [facility] Erythrocyte sedimentation ra te by Photometric methodOrdered By: Lorrie Baig on 07-23-2022 ESR Photometric method (Bld) [Velocity] 65 mm/hr 0-29 [facility] Folate [Mass/volume] in Seru m or PlasmaOrdered By: Lorrie Baig on 07-23-2022 Folate [Mass/Vol] 12.8 ng/mL >5.9 [facility] Comment on above: Folate reference ran ge: >5.9 ng/mlThe WHO technical consultation on folate and vitamin [id number] has determined that folate concentrations lessthan 4 ng/ml are considered deficient. Magnesium [Mass/volume] in S hugo or PlasmaOrdered By: Lorrie Baig on 07-23-2022 Magnesium [Mass/Vol] 1.8 mg/dL 1.9-2.7 [facility] No Panel InformationOrdered By: Lorrie Baig on 07-23-2022 Protein Electrophoresis Interpret See comment . [facility] Comment on above: Faint band in gamma region suspicious for monoclonalimmunoglobulin. This band may represent a benign spike asseen in older people or could be a paraprotein as seen inMultiple Myeloma, Waldenstrom's Macroglobulinemia orLymphoma. Depending on clinical circumstances, furtherdiagnostic studies may include serum immunofixation orserum free light chain quantitation.Performed at: [place] [id number] Director: Jeyson Duncan PhD, Phone: [phone] Protein Electrophoresis M-Antwan Comment: g/dL Not Observed [facility] Comment on above: ASYMMETRICAL GAMMA Protein Electrophoresis Note See comment . [facility] Comment on above: Protein electrophore sis scan will follow via computer,mail, or information assurance officer delivery. Phosphate [Mass/volume] in S hugo or PlasmaOrdered By: Lorrie Baig on 07-23-2022 Phosphate [Mass/Vol] 4.5 mg/dL 3.7-7.2 [facility] Protein [Mass/volume] in Ser um or PlasmaOrdered By: Lorrie Baig on 07-23-2022 Protein [Mass/Vol] 7.2 g/dL 6.0-8.5 [facility] Serum globulin measurement ( mass/volume)Ordered By: Lorrie Baig on 07-23-2022 Globulin (S) [Mass/Vol] 3.9 g/dL 2.2-3.9 [facility] Serum or plasma albumin/glob ulin mass ratioOrdered By: Lorrie Baig on 07-23-2022 Albumin/Globulin [Mass ratio] 0.8 {ratio} 0.7-1.7 [facility] Serum or plasma alpha 1 glob ulin measurement by electrophoresis (mass/volume)Ordered By: Lorrie Baig on 07-23-2022 Alpha 1 globulin Elph [Mass/Vol] 0.3 g/dL 0.0-0.4 [facility] Serum or plasma alpha 2 glob ulin measurement by electrophoresis (mass/volume)Ordered By: Lorrie Baig on 07-23-2022 Alpha 2 globulin Elph [Mass/Vol] 0.7 g/dL 0.4-1.0 [facility] Serum or plasma beta globuli n measurement by electrophoresis (mass/volume)Ordered By: Lorrie Baig on 07-23-2022 Beta globulin Elph [Mass/Vol] 1.2 g/dL 0.7-1.3 [facility] Serum or plasma gamma globul in measurement by electrophoresis (mass/volume)Ordered By: Lorrie Baig on 07-23-2022 Gamma globulin Elph [Mass/Vol] 1.7 g/dL 0.4-1.8 [facility] Thyrotropin [Units/volume] i n Serum or PlasmaOrdered By: Lorrie Baig on 07-23-2022 TSH Qn 4.76 m[IU]/L 0.45-5.33 [facility] Vitamin B12 ser/plasOrdered By: Lorrie Baig on 07-23-2022 Cobalamin (Vitamin B12) [Mass/Vol] 358 pg/mL 180-914 [facility] KNEE 3 VIEWSon 07-14-2022 KNEE 3 VIEWS Patient Name: GEETA SHELTON STUDY: KNEE; 3 VIEWS; Right; 07/14/2022 8:47 am INDICATION: pain Z96.659: Status post total knee replacement. ACCESSION NUMBER(S): [id number] ORDERING CLINICIAN: ACOSTA SCHAFER FINDINGS: Right knee three views. Status post revision type total knee replacement components in good position no signs of fracture dislocation or other bony abnormality dee in the soft tissues anteriorly. Electronically signed by: ACOSTA SCHAFER MD [facility] Post Op (Orthopaedic Surgery )on 07-14-2022 Post [...] she will most likely do this at [facility] in [place]. Physical exam General: No acute distress and [...] Diagnostics Please see dictated x-ray report Procedure [place] removed Steri-Strips placed without complication Assessment Status [...] grammatical areas may persist related to the Qriously software Merrill Alejandro PA-C . Active Problems Problems Acute pain of both knees (338.19,719.46) (M25.561,M25.562) Status post total knee replacement (V43.65) (Z96.659) Allergies Medication Penicillins Recorded By: Tarsha Murray; 05/18/2022 8:47:33 AM Current Meds Medication NameInstruction Xarelto 10 MG Oral TabletTake 1 tablet daily Results/Data Xray Knee 3 [id number] 08:47AMSAcosta steward Test NameResultFlagReference Xray Knee 3 View(Report) FINAL REPORT Interpreted by: ACOSTA SCHAFER BURTON, MD 07/14/22 08:49 Patient Name: GEETA SHELTON STUDY: KNEE; 3 VIEWS; Right; 07/14/2022 8:47 am INDICATION: pain Z96.659: Status post total knee replacement. ACCESSION NUMBER(S): [id number] ORDERING CLINICIAN: ACOSTA SCHAFER FINDINGS: Right knee [...] Radiologyon 07-14-2022 XR Knee 3 Views Normal -[facility] Work Phone: Basic Metabolic Panel Reflex Mgon 07-03-2022 Anion gap [Moles/Vol] 10 mmol/L Normal 9-15 [facility] Comment on above: Performed By: #### B MPX #### [facility] [address] [place] [address] Calcium [Mass/Vol] 9.2 mg/dL Normal 8.5-9.9 [facility] Comment on above: Performed By: #### B MPX #### [facility] [address] [place] [address] Chloride [Moles/Vol] 100 mmol/L Normal 95-107 [facility] Comment on above: Performed By: #### B MPX #### [facility] [address] [place] [address] CO2 [Moles/Vol] 27 mmol/L Normal 20-31 [facility] Comment on above: Performed By: #### B MPX #### [facility] [address] [place] [address] Creatinine [Mass/Vol] 0.51 mg/dL Normal 0.50-0.90 [facility] Comment on above: Performed By: #### B MPX #### [facility] [address] [place] [address] GFR >60.0 Normal >60 [facility] Comment on above: Result Comment: Pedi [...] secretion. Performed By: #### B MPX #### [facility] [address] [place] [address] Glucose [Mass/Vol] 132 mg/dL Critically high 70-99 [facility] Comment on above: Performed By: #### B MPX #### [facility] [address] [place] [address] Magnesium [Moles/Vol] 4.6 mmol/L Normal 3.4-4.9 [facility] Comment on above: Performed By: #### B MPX #### [facility] [address] [place] [address] Sodium [Moles/Vol] 137 mmol/L Normal 135-144 [facility] Comment on above: Performed By: #### B MPX #### [facility] [address] [place] [address] Urea nitrogen [Mass/Vol] 12 mg/dL Normal 6-20 [facility] Comment on above: Performed By: #### B MPX #### [facility] [address] [place] [address] Basic Metabolic Panel w/ Ref hillary to MGon 07-03-2022 Anion gap [Moles/Vol] 10 mmol/L [facility] [employer] Calcium [Mass/Vol] 9.2 mg/dL 8.5 - 9.9 mg/dL [facility] [employer] Chloride [Moles/Vol] 100 mmol/L [facility] [employer] CO2 [Moles/Vol] 27 mmol/L [facility] [employer] Creatinine [Mass/Vol] 0.51 mg/dL 0.50 - 0.90 mg/dL [facility] [employer] GFR/1.73 sq M.predicted MDRD (S/P/Bld) [Vol rate/Area] 60 - PINF [facility] Comment on above: Pediatric calculator link https://www.kidney.org/professionals/kdoqi/gfr_calculatorped [...] 132 mg/dL High 70 - 99 mg/dL [facility] Interpretation and review of laboratory results Abnormal [facility] [employer] Potassium reflex Magnesium 4.6 [facility] [employer] Sodium [Moles/Vol] 137 mmol/L [facility] Urea nitrogen (BldV) [Mass/Vol] 12 mg/dL 6 - 20 mg/dL [facility] CBCon 07-03-2022 Hematocrit (Bld) [Volume fraction] 39.9 % 37.0 - 47.0 % [facility] Hemoglobin (Bld) [Mass/Vol] 12.9 g/dL 12.0 - 16.0 g/dL [facility] Interpretation and review of laboratory results Abnormal [facility] MCH (RBC) [Entitic mass] 25.7 pg Low 27. 0 - 31.3 pg [facility] MCHC (RBC) [Mass/Vol] 32.3 % Low 33.0 - 37.0 % [facility] MCV (RBC) [Entitic vol] 79.6 fL 79.4 - 94.8 fL [facility] Platelet distribution width (Bld) [Ratio] 16.5 % High 11.5 - 14.5 % [facility] Platelets (Bld) [#/Vol] 230 10*3/uL 130 - 400 K/uL [facility] RBC (Bld) [#/Vol] 5.02 10*6/uL [facility] WBC (Bld) [#/Vol] 9.2 10*3/uL 4.8 - 10.8 K/uL [facility] CBC With Platelet No Differe ntialon 07-03-2022 Erythrocyte distribution width (RBC) [Ratio] 16.5 % Critically high 11.5-14.5 [facility] Comment on above: Performed By: #### C BCND #### [facility] [address] [place] [address] Hematocrit (Bld) [Volume fraction] 39.9 % Normal 37.0-47.0 [facility] Comment on above: Performed By: #### C BCND #### [facility] [address] [place] [address] Hemoglobin (Bld) [Mass/Vol] 12.9 g/dL Normal 12.0-16.0 [facility] Comment on above: Performed By: #### C BCND #### [facility] [address] [place] [address] MCH (RBC) [Entitic mass] 25.7 pg Low 27.0-31.3 [facility] Comment on above: Performed By: #### C BCND #### [facility] [address] [place] [address] MCHC 32.3 % Low 33.0-37.0 [facility] Comment on above: Performed By: #### C BCND #### [facility] [address] [place] [address] MCV (RBC) [Entitic vol] 79.6 fL Normal 79.4-94.8 [facility] Comment on above: Performed By: #### C BCND #### [facility] [address] [place] [address] Platelets (Bld) [#/Vol] 230 10*3/uL Normal 130-400 [facility] Comment on above: Performed By: #### C BCND #### [facility] [address] [place] [address] RBC (Bld) [#/Vol] 5.02 10*6/uL Normal 4.20-5.40 [facility] Comment on above: Performed By: #### C BCND #### [facility] [address] [place] [address] WBC (Bld) [#/Vol] 9.2 10*3/uL Normal 4.8-10.8 [facility] Comment on above: Performed By: #### C BCND #### [facility] [address] [place] [address] Basic Metabolic Panel Reflex Mgon 07-02-2022 Anion gap [Moles/Vol] 8 mmol/L Low 9-15 [facility] Comment on above: Order Comment: Colle ction has been rescheduled by VALDO at 07/02/2022 05:49 Reason: Come back last per lauren reinoso Performed By: #### B MPX #### [facility] [address] [place] [address] Calcium [Mass/Vol] 8.9 mg/dL Normal 8.5-9.9 [facility] Comment on above: Order Comment: Daja zamarripa has been rescheduled by HERAM at 07/02/2022 05:49 Reason: Come back last per rn fouzia Performed By: #### B MPX #### [facility] [address] [place] [address] Chloride [Moles/Vol] 100 mmol/L Normal 95-107 [facility] Comment on above: Order Comment: Daja zamarripa has been rescheduled by HERAM at 07/02/2022 05:49 Reason: Come back last per rn fouzia Performed By: #### B MPX #### [facility] [address] [place] [address] CO2 [Moles/Vol] 27 mmol/L Normal 20-31 [facility] Comment on above: Order Comment: Daja zamarripa has been rescheduled by HERAM at 07/02/2022 05:49 Reason: Come back last per rn fouzia Performed By: #### B MPX #### [facility] [address] [place] [address] Creatinine [Mass/Vol] 0.61 mg/dL Normal 0.50-0.90 [facility] Comment on above: Order Comment: Daja zamarripa has been rescheduled by HERAM at 07/02/2022 05:49 Reason: Come back last per rn fouzia Performed By: #### B MPX #### [facility] [address] [place] [address] GFR >60.0 Normal >60 [facility] Comment on above: Order Comment: Daja [...] secretion. Performed By: #### B MPX #### [facility] [address] [place] [address] Glucose [Mass/Vol] 144 mg/dL Critically high 70-99 [facility] Comment on above: Order Comment: Daja zamarripa has been rescheduled by HERMICHELLE at 07/02/2022 05:49 Reason: Come back last per lauren reinoso Performed By: #### B MPX #### [facility] [address] [place] [address] Magnesium [Moles/Vol] 4.8 mmol/L Normal 3.4-4.9 [facility] Comment on above: Order Comment: Daja zamarripa has been rescheduled by HERMICHELLE at 07/02/2022 05:49 Reason: Come back last per rn fouzia Performed By: #### B MPX #### [facility] [address] [place] [address] Sodium [Moles/Vol] 135 mmol/L Normal 135-144 [facility] Comment on above: Order Comment: Daja zamarripa has been rescheduled by HERMICHELLE at 07/02/2022 05:49 Reason: Come back last per lauren reinoso Performed By: #### B MPX #### [facility] [address] [place] [address] Urea nitrogen [Mass/Vol] 21 mg/dL Critically high 6-20 [facility] Comment on above: Order Comment: Daja zamarripa has been rescheduled by HERAM at 07/02/2022 05:49 Reason: Come back last per lauren reinoso Performed By: #### B MPX #### [facility] [address] [place] [address] Basic Metabolic Panel w/ Ref hillary to MGon 07-02-2022 Anion gap [Moles/Vol] 8 mmol/L Low [facility] Calcium [Mass/Vol] 8.9 mg/dL 8.5 - 9.9 mg/dL [facility] Chloride [Moles/Vol] 100 mmol/L [facility] CO2 [Moles/Vol] 27 mmol/L [facility] Creatinine [Mass/Vol] 0.61 mg/dL 0.50 - 0.90 mg/dL [facility] GFR/1.73 sq M.predicted MDRD (S/P/Bld) [Vol rate/Area] 60 - PINF [facility] Comment on above: Pediatric calculator link https://www.kidney.org/professionals/kdoqi/gfr_calculatorped [...] High 70 - 99 mg/dL [facility] Interpretation and review of laboratory results Abnormal [facility] Potassium reflex Magnesium 4.8 [facility] Sodium [Moles/Vol] 135 mmol/L [facility] Urea nitrogen (BldV) [Mass/Vol] 21 mg/dL High 6 - 20 mg/dL [facility] Collection has been rescheduled by VALDO at 07/02/2022 05:49 Reason: Come back last per lauren galdamezfouzia [facility] CBCon 07-02-2022 Hematocrit (Bld) [Volume fraction] 40.3 % 37.0 - 47.0 % [facility] Hemoglobin (Bld) [Mass/Vol] 12.9 g/dL 12.0 - 16.0 g/dL [facility] Interpretation and review of laboratory results Abnormal [facility] MCH (RBC) [Entitic mass] 25.5 pg Low 27. 0 - 31.3 pg [facility] MCHC (RBC) [Mass/Vol] 32.1 % Low 33.0 - 37.0 % [facility] MCV (RBC) [Entitic vol] 79.6 fL 79.4 - 94.8 fL [facility] Platelet distribution width (Bld) [Ratio] 16.3 % High 11.5 - 14.5 % [facility] Platelets (Bld) [#/Vol] 230 10*3/uL 130 - 400 K/uL [facility] RBC (Bld) [#/Vol] 5.06 10*6/uL [facility] WBC (Bld) [#/Vol] 9.1 10*3/uL 4.8 - 10.8 K/uL [facility] Collection has been rescheduled by HERMICHELLE at 07/02/2022 05:49 Reason: Come back last per lauren reinoso [facility] CBC With Platelet No Differe ntialon 07-02-2022 Erythrocyte distribution width (RBC) [Ratio] 16.3 % Critically high 11.5-14.5 [facility] Comment on above: Order Comment: Daja zamarripa has been rescheduled by VALDO at 07/02/2022 05:49 Reason: Come back last per lauren reinoso Performed By: #### C BCND #### [facility] [address] [facility] [address] Hematocrit (Bld) [Volume fraction] 40.3 % Normal 37.0-47.0 [facility] Comment on above: Order Comment: Daja zamarripa has been rescheduled by VALDO at 07/02/2022 05:49 Reason: Come back last per lauren reinoso Performed By: #### C BCND #### [facility] [address] [facility] [facility] [facility] [address] [facility] [address] Hemoglobin (Bld) [Mass/Vol] 12.9 g/dL Normal 12.0-16.0 [facility] Comment on above: Order Comment: Daja ctjanie has been rescheduled by VALDO at 07/02/2022 05:49 Reason: Come back last per lauren reinoso Performed By: #### C BCND #### [facility] [address] [place] [address] MCH (RBC) [Entitic mass] 25.5 pg Low 27.0-31.3 [facility] Comment on above: Order Comment: Daja ctjanie has been rescheduled by HERAM at 07/02/2022 05:49 Reason: Come back last per rn fouzia Performed By: #### C BCND #### [facility] [address] [place] [address] MCHC 32.1 % Low 33.0-37.0 [facility] Comment on above: Order Comment: Daja ctjanie has been rescheduled by HERAM at 07/02/2022 05:49 Reason: Come back last per rn fouzia Performed By: #### C BCND #### [facility] [address] [place] [address] MCV (RBC) [Entitic vol] 79.6 fL Normal 79.4-94.8 [facility] Comment on above: Order Comment: Daja ctjanie has been rescheduled by HERAM at 07/02/2022 05:49 Reason: Come back last per rn fouzia Performed By: #### C BCND #### [facility] [address] [place] [address] Platelets (Bld) [#/Vol] 230 10*3/uL Normal 130-400 [facility] Comment on above: Order Comment: Daja zamarripa has been rescheduled by HERAM at 07/02/2022 05:49 Reason: Come back last per rn fouzia Performed By: #### C BCND #### [facility] [address] [facility] [address] [facility] [place] [address] RBC (Bld) [#/Vol] 5.06 10*6/uL Normal 4.20-5.40 [facility] Comment on above: Order Comment: Daja ctjanie has been rescheduled by HERAM at 07/02/2022 05:49 Reason: Come back last per rn fouzia Performed By: #### C BCND #### [facility] [address] [place] [address] WBC (Bld) [#/Vol] 9.1 10*3/uL Normal 4.8-10.8 [facility] Comment on above: Order Comment: Daja zamarripa has been rescheduled by VALDO at 07/02/2022 05:49 Reason: Come back last per rn fouzia Performed By: #### C BCND #### [facility] [address] [place] [address] US DUP UPPER EXTREMITY LEFT VENOUSon 07-02-2022 [...] Jean Sifuentes MD 07/02/22 Final result Normal [facility] No evidence of DVT. [facility] EXAMINATION: VENOUS ULTRASOUND OF THE LEFT [...] normal color flow study and spectral analysis. [facility] Jean Sifuentes MD - 07/02/2022 EXAMINATION: [...] spectral analysis. IMPRESSION: No evidence of DVT. [employer] Work Phone: [employer] Phone: Radiology Study observation (narrative) JULIO [employer] Majeste Phone: XR KNEE RIGHT (1-2 VIEWS)on 07-01-2022 [...] Jean Sifuentes MD 07/01/22 Final result Normal [facility] Normal postsurgical appearance [facility] EXAMINATION: TWO XRAY VIEWS OF THE [...] are intact. Overlying surgical dee are seen [facility] Jean Sifuentes MD - 07/01/2022 EXAMINATION: [...] dee are seen IMPRESSION: Normal postsurgical appearance [employer] Work Phone: Radiology Study observation (narrative) [employer] Phone: XR KNEE RIGHT (1-2 VIEWS)Ord ered By: Jean Sifuentes on 07-01-2022 [employer] Work Phone: MRSA DNA Probe, Nasalon -0 MRSA, DNA, Nasal Negative NEG [employer] Comment on above: NEGATIVE: MRSA DNA n ot detected by nucleic acid amplification. Results should be used as an adjunct to nosocomial control efforts to identify patients needing enhanced precautions. The test is not intended to identify patients with staphylococcal infections. Results should not be used to guide or monitor treatment for MRSA infections. [employer] [address] [place] [id number] ([phone] Specimen Description [facility] MRSA, DNA, Nasalon MRSA, DNA, Nasal Negative Normal NEG [facility] Comment on above: Result Comment: NEGA TIVE: MRSA DNA not detected by nucleic acid amplification. Results should be used as an adjunct to nosocomial control efforts to identify patients needing enhanced precautions. The test is not intended to identify patients with staphylococcal infections. Results should not be used to guide or monitor treatment for MRSA infections. [employer] [address] [place] [address] [id number] ([phone] Performed By: #### I MRSA #### [facility] [address] [place] [address] EKG 12 LeadOrdered By: Leigh Ann Nash on 06-25-2022 Atrial Rate 73 BPM [employer] Work Phone: P Humphrey 33 degrees [employer] Work Phone: P-R Interval 160 ms [employer] Work Phone: Q-T Interval 406 ms [employer] Work Phone: QRS Duration 102 ms [employer] Work Phone: QTc Calculation (Bazett) 447 ms [employer] Work Phone: R Humphrey 74 degrees [facility] Phone: T Humphrey 65 degrees [employer] Work Phone: Ventricular Rate 73 BPM [facility] [employer] Work Phone: [facility] [employer] Work Phone: EKG 12 Leadon 06-25-2022 Normal sinus rhythm Incomplete right bundle branch block Confirmed by LEIGH ANN NASH ([id number]) on 06/25/2022 6:49:48 PM Leigh Ann Sumner, DO - 06/25/2022 Normal sinus rhythm Incomplete right bundle branch block Confirmed by LEIGH ANN NASH ([id number]) on 06/25/2022 6:49:48 PM [employer] Work Phone: Established Visit (Orthopaed ic Surgery)on [...] plans on performing outpatient physical therapy at [facility] in [place]. All of the patient's questions and concerns [...] today's treatment with some difficulty. Evaluation Code: 98359 PT Eval: Low Complexity, 32 min(s). Resources provided today: education Signatures Electronically signed by : Natali Tyson, PT DPT; Jun 30 2022 10:08AM EST (Author) Normal [facility] APTTon 06-24-2022 aPTT Coag (Bld) [Time] 30.1 s YECENIA Nohelia [facility] Comment on above: Effective 02/27/2020: Heparin Therapeutic Range: 64.0 98.0 seconds. BON [facility] CBC With Platelet and Differ entialon 06-24-2022 Basophils (Bld) [#/Vol] 0.1 10*3/uL Normal 0.0-0.2 [facility] Comment on above: Performed By: #### C BCWD #### [facility] [address] [place] [address] Basophils/100 WBC (Bld) 0.6 % Normal [facility] Comment on above: Performed By: #### C BCWD #### [facility] [address] [place] [address] Eosinophils (Bld) [#/Vol] 0.1 10*3/uL Normal 0.0-0.7 [facility] Comment on above: Performed By: #### C BCWD #### [facility] [address] [place] [address] Eosinophils/100 WBC (Bld) 1.6 % Normal [facility] Comment on above: Performed By: #### C BCWD #### [facility] [address] [place] [address] Erythrocyte distribution width (RBC) [Ratio] 16.4 % Critically high 11.5-14.5 [facility] Comment on above: Performed By: #### C BCWD #### [facility] [address] [place] [address] Hematocrit (Bld) [Volume fraction] 44.4 % Normal 37.0-47.0 [facility] Comment on above: Performed By: #### C BCWD #### [facility] [address] [place] [address] Hemoglobin (Bld) [Mass/Vol] 14.2 g/dL Normal 12.0-16.0 [facility] Comment on above: Performed By: #### C BCWD #### [facility] [address] [place] [address] Lymphocytes (Bld) [#/Vol] 2.3 10*3/uL Normal 1.0-4.8 [facility] Comment on above: Performed By: #### C BCWD #### [facility] [address] [place] [address] Lymphocytes/100 WBC (Bld) 25.8 % Normal [facility] Comment on above: Performed By: #### C BCWD #### [facility] [address] [place] [address] MCH (RBC) [Entitic mass] 25.1 pg Low 27.0-31.3 [facility] Comment on above: Performed By: #### C BCWD #### [facility] [address] [place] [address] MCHC 32.0 % Low 33.0-37.0 [facility] Comment on above: Performed By: #### C BCWD #### [facility] [address] [place] [address] MCV (RBC) [Entitic vol] 78.5 fL Low 79.4-94.8 [facility] Comment on above: Performed By: #### C BCWD #### [facility] [address] [place] [address] Monocytes (Bld) [#/Vol] 0.8 10*3/uL Normal 0.2-0.8 [facility] Comment on above: Performed By: #### C BCWD #### [facility] [address] [place] [address] Monocytes/100 WBC (Bld) 9.4 % Normal [facility] Comment on above: Performed By: #### C BCWD #### [facility] [address] [place] [address] Neutrophils (Bld) [#/Vol] 5.6 10*3/uL Normal 1.4-6.5 [facility] Comment on above: Performed By: #### C BCWD #### [facility] [address] [place] [address] Neutrophils/100 WBC (Bld) 62.6 % Normal [facility] Comment on above: Performed By: #### C BCWD #### [facility] [address] [place] [address] Platelets (Bld) [#/Vol] 281 10*3/uL Normal 130-400 [facility] Comment on above: Performed By: #### C BCWD #### [facility] [address] [place] [address] RBC (Bld) [#/Vol] 5.66 10*6/uL Critically high 4.20-5.40 [facility] Comment on above: Performed By: #### C BCWD #### [facility] [address] [place] [address] WBC (Bld) [#/Vol] 8.9 10*3/uL Normal 4.8-10.8 [facility] Comment on above: Performed By: #### C BCWD #### [facility] [address] [place] [address] CBC with Auto Differentialon 06-24-2022 Basophils (Bld) [#/Vol] 0.1 10*3/uL 0.0 - 0.2 K/uL [facility] Basophils/100 WBC (Bld) 0.6 % [facility] Eosinophils (Bld) [#/Vol] 0.1 10*3/uL 0.0 - 0.7 K/uL [facility] Eosinophils/100 WBC (Bld) 1.6 % [facility] Hematocrit (Bld) [Volume fraction] 44.4 % 37.0 - 47.0 % [facility] Hemoglobin (Bld) [Mass/Vol] 14.2 g/dL 12.0 - 16.0 g/dL [facility] Interpretation and review of laboratory results Abnormal [facility] Lymphocytes (Bld) [#/Vol] 2.3 10*3/uL 1.0 - 4.8 K/uL [facility] Lymphocytes/100 WBC (Bld) 25.8 % [facility] MCH (RBC) [Entitic mass] 25.1 pg Low 27. 0 - 31.3 pg [facility] MCHC (RBC) [Mass/Vol] 32.0 % Low 33.0 - 37.0 % [facility] MCV (RBC) [Entitic vol] 78.5 fL Low 79.4 - 94.8 fL [facility] Monocytes (Bld) [#/Vol] 0.8 10*3/uL 0.2 - 0.8 K/uL [facility] Monocytes/100 WBC (Bld) 9.4 % B [facility] Neutrophils Absolute 5.6 K/uL 1.4 - 6 .5 K/uL [facility] Neutrophils/100 WBC (Bld) 62.6 % [facility] Platelet distribution width (Bld) [Ratio] 16.4 % High 11.5 - 14.5 % [facility] Platelets (Bld) [#/Vol] 281 10*3/uL 130 - 400 K/uL [facility] RBC (Bld) [#/Vol] 5.66 10*6/uL High [facility] WBC (Bld) [#/Vol] 8.9 10*3/uL 4.8 - 10.8 K/uL [facility] Comprehensive Metabolic Pane gretel 06-24-2022 Albumin [Mass/Vol] 4.2 g/dL Normal 3.5-4.6 [facility] Comment on above: Performed By: #### U MARIA ELENA #### [facility] [address] [place] [address] ALP [Catalytic activity/Vol] 89 U/L Normal 40-130 [facility] Comment on above: Performed By: #### U MARIA ELENA #### [facility] [address] [place] [address] ALT [Catalytic activity/Vol] 47 U/L Critically high 0-33 [facility] Comment on above: Performed By: #### U MARIA ELENA #### [facility] [address] [place] [address] Anion gap [Moles/Vol] 13 mmol/L Normal 9-15 [facility] Comment on above: Performed By: #### U MARIA ELENA #### [facility] [address] [place] [address] AST [Catalytic activity/Vol] 44 U/L Critically high 0-35 [facility] Comment on above: Performed By: #### U MARIA ELENA #### [facility] [address] [place] [address] Bilirubin [Mass/Vol] 0.5 mg/dL Normal 0.2-0.7 [facility] Comment on above: Performed By: #### U MARIA ELENA #### [facility] [address] [place] [address] Calcium [Mass/Vol] 9.2 mg/dL Normal 8.5-9.9 [facility] Comment on above: Performed By: #### U MARIA ELENA #### [facility] [address] [place] [address] Chloride [Moles/Vol] 100 mmol/L Normal 95-107 [facility] Comment on above: Performed By: #### U MARIA ELENA #### [facility] [address] [place] [address] CO2 [Moles/Vol] 26 mmol/L Normal 20-31 [facility] Comment on above: Performed By: #### U MARIA ELENA #### [facility] [address] [place] [address] Creatinine [Mass/Vol] 0.54 mg/dL Normal 0.50-0.90 [facility] Comment on above: Performed By: #### U MARIA ELENA #### [facility] [address] [place] [address] GFR >60.0 Normal >60 [facility] Comment on above: Result Comment: Myra [...] Performed By: #### U MARIA ELENA #### [facility] [address] [place] [address] Globulin (S) [Mass/Vol] 3.9 g/dL Critically high 2.3-3.5 [facility] Comment on above: Performed By: #### U MARIA ELENA #### [facility] [address] [place] [address] Glucose [Mass/Vol] 124 mg/dL Critically high 70-99 [facility] Comment on above: Performed By: #### U MARIA ELENA #### [facility] [address] [place] [address] Potassium [Moles/Vol] 4.4 mmol/L Normal 3.4-4.9 [facility] Comment on above: Performed By: #### U MARIA ELENA #### [facility] [address] [place] [address] Protein [Mass/Vol] 8.1 g/dL Critically high 6.3-8.0 [facility] Comment on above: Performed By: #### U MARIA ELENA #### [facility] [address] [place] [address] Sodium [Moles/Vol] 139 mmol/L Normal 135-144 [facility] Comment on above: Performed By: #### U MARIA ELENA #### [facility] [address] [place] [address] Urea nitrogen [Mass/Vol] 14 mg/dL Normal 6-20 [facility] Comment on above: Performed By: #### U MARIA ELENA #### [facility] [address] [place] [address] Albumin [Mass/Vol] 4.2 g/dL 3.5 - 4.6 g/dL [facility] ALP (Bld) [Catalytic activity/Vol] 89 U/L 40 - 130 U/L [facility] ALT [Catalytic activity/Vol] 47 U/L High 0 - 33 U/L [facility] Anion gap [Moles/Vol] 13 mmol/L [facility] AST [Catalytic activity/Vol] 44 U/L High 0 - 35 U/L [facility] Bilirubin [Mass/Vol] 0.5 mg/dL 0.2 - 0 .7 mg/dL [facility] Calcium [Mass/Vol] 9.2 mg/dL 8.5 - 9.9 mg/dL [facility] Chloride [Moles/Vol] 100 mmol/L [facility] CO2 [Moles/Vol] 26 mmol/L [facility] Creatinine [Mass/Vol] 0.54 mg/dL 0.50 - 0.90 mg/dL [facility] GFR/1.73 sq M.predicted MDRD (S/P/Bld) [Vol rate/Area] 60 - PINF [facility] Comment on above: Pediatric calculator link https://www.kidney.org/professionals/kdoqi/gfr_calculatorped [...] 3.9 g/dL High 2.3 - 3.5 g/dL [facility] Glucose [Mass/Vol] 124 mg/dL High 70 - 99 mg/dL [facility] Interpretation and review of laboratory results Abnormal [facility] Potassium [Moles/Vol] 4.4 mmol/L [facility] Protein [Mass/Vol] 8.1 g/dL High 6.3 - 8.0 g/dL [facility] Sodium [Moles/Vol] 139 mmol/L [facility] Urea nitrogen (BldV) [Mass/Vol] 14 mg/dL 6 - 20 mg/dL [facility] Laboratory - Coagulationon 0 06-24-2022 INR Coag (Bld) [Relative time] 1.1 {INR} Normal [facility] Work Phone: Laboratory - Hematology and Cell countson 06-24-2022 Basophils/100 WBC (Bld) 0.6 % Normal [facility] Work Phone: Eosinophils/100 WBC (Bld) 1.6 % Normal [facility] Work Phone: Lymphocytes/100 WBC (Bld) 25.8 % Normal [facility] Work Phone: Monocytes/100 WBC (Bld) 9.4 % Normal [facility] Work Phone: Neutrophils/100 WBC (Bld) 62.6 % Normal [facility] Work Phone: MRSA, DNA, Nasalon 3 Specimen Description Swab Normal [facility] Comment on above: Performed By: #### I MRSA #### [facility] [address] [place] [address] Microscopic Urinalysison Bacteria, UA FEW Abnormal Negative /HPF [facility] Epithelial Cells, UA 0-2 [facility] Hyaline Casts, UA 0-1 [facility] RBC, UA 0-2 [facility] WBC, UA 3-5 [facility] No Panel Informationon 06-24 Interpretation and review of laboratory results Abnormal [facility] TRACE Abnormal Negative [facility] Work Phone: [phone] Negative Normal Negative [facility] Work Phone: [phone] 0.2 {E.U./dL} Normal < 2.0 [facility] Work Phone: [phone] 30 mg/dL Abnormal Negative [facility] Work Phone: [phone] 7.0 1 Normal 5.0-9.0 [facility] Work Phone: [phone] Not Indicated Normal [facility] Work Phone: [phone] 1.010 1 Normal 1.005-1.03 [facility] Work Phone: [phone] Clear Normal Clear [facility] Work Phone: [phone] Yellow Normal Straw/[place]atin [facility] Work Phone: [phone] 0-2 Normal 0-5 [facility] Work Phone: [phone] 3-5 Normal 0-5 [facility] Work Phone: [phone] 0-1 Normal 0-5 [facility] Work Phone: [phone] FEW Abnormal Negative [facility] Work Phone: [phone] 281 K/uL Normal 130-400 [facility] Work Phone: [phone] 16.4 % above high threshold 11.5-14.5 [facility] Work Phone: [phone] 32.0 % below low threshold 33.0-37.0 [facility] Work Phone: [phone] 0.1 K/uL Normal 0.0-0.2 [facility] Work Phone: [phone] 0.8 K/uL Normal 0.2-0.8 [facility] Work Phone: [phone] 2.3 K/uL Normal 1.0-4.8 [facility] Work Phone: [phone] 5.6 K/uL Normal 1.4-6.5 [facility] Work Phone: [phone] 25.1 pg below low threshold 27.0-31.3 [facility] Work Phone: [phone] 78.5 fL below low threshold 79.4-94.8 [facility] Work Phone: 44.4 % Normal 37.0-47.0 [facility] Work Phone: 14.2 g/dL Normal 12.0-16.0 [facility] Work Phone: [phone] 5.66 {M/uL} above high threshold 4.20-5.40 [facility] Work Phone: [phone] 8.9 K/uL Normal 4.8-10.8 [facility] Work Phone: 14.8 {sec} Normal 12.3-14.9 [facility] Work Phone: 30.1 {sec} Normal 24.4-36.8 [facility] Work Phone: Comment on above: Effective 02/27/2020: Heparin Therapeutic Range: 64.0 ? 98.0 seconds. 4.2 g/dL Normal 3.5-4.6 [facility] Work Phone: [phone] 3.9 g/dL above high threshold 2.3-3.5 [facility] Work Phone: [phone] U/L above high threshold 0-35 [facility] [...] [facility] Work Phone: 4.4 {mEq/L} Normal 3.4-4.9 [facility] Work Phone: 139 {mEq/L} Normal 135-[facility] Work [facility]: Negative Normal NEG [facility] Work Phone: Comment on above: NEGATIVE: MRSA DNA n ot detected by nucleic acid amplification. Results should be used as an adjunct to nosocomial control efforts toidentify patients needing enhanced precautions.The test is not intended to identify patients with staphylococcalinfections. Results should not be used to guide or monitor treatmentfor MRSA infections.[address] [address] ([phone] Swab Normal [facility] Work Phone: Partial Thromboplastin Timeo n 06-24-2022 aPTT Coag (Bld) [Time] 30.1 s Normal 24.4-36.8 [facility] Comment on above: Result Comment: Effe ctive 02/27/2020: Heparin Therapeutic Range: 64.0 ? 98.0 seconds. Performed By: #### U MARIA ELENA #### [facility] [address] [facility] [address] Prothrombin Timeon INR Coag (PPP) [Relative time] 1.1 {INR} Normal [facility] Comment on above: Performed By: #### P T #### [facility] [address] [facility] [address] PT Coag (PPP) [Time] 14.8 s Normal 12.3-14.9 [facility] Comment on above: Performed By: #### P T #### [facility] [address] [facility] [address] Protime-INRon 06-24-2022 INR Coag (Bld) [Relative time] 1.1 {INR} [facility] PT Coag (PPP) [Time] 14.8 s [facility] [employer] TYPE AND SCREENon 06-24-2022 ABO/Rh Negative [facility] [employer] Comment on above: @06/24/22 14:01 by Elaina FISCHER: BACK TYPE CONFIRMED IN TUBE. LMB Confirmation type ne eds to be drawn. [facility] Type and 3 cell Screen OB Ca ptureon 06-24-2022 Type and 3 cell Screen OB Capture PATIENT: PINKY Prince LOC: [facility] BILL# : [id number] : 1970 SEX: F ORDERED BY: GILMAR COX ORDERED : 06/24/2022 11:08 COLLECTED: 06/24/2022 11:45 ORDER : [id number] RECEIVED : 06/24/2022 11:45 Confirmation type needs to be drawn. --- TEST NAME RESULT UNITS RANGES ABN FL ST ABORH Capture A NEG F @06/24/22 14:01 by RUDY: BACK TYPE CONFIRMED IN TUBE. LMB Antibody 3 Cell Scrn Captu NEG F -- Normal [facility] Comment on above: Performed By: #### T SO3C #### [facility] [address] [facility] [address] Urinalysis with Reflex to Cu ltureon 06-24-2022 Bilirubin Urine Negative Negative [facility] [employer] Blood, Urine Negative Negative [facility] Clarity, UA Clear Clear [facility] [employer] Color, UA Yellow Straw/[place] ow [facility] [employer] Glucose, Ur Negative Negative mg/dL [facility] [employer] Ketones Ql (U) Negative Negative mg/dL [facility] Leukocyte esterase Test strip Ql (U) TRACE Abnormal Negative [facility] Nitrite, Urine Negative Negative [facility] pH, UA 7.0 5.0 - 9.0 [facility] Protein (U) [Mass/Vol] 30 mg/dL Abnormal Negative [facility] Specific [place], UA 1.010 1.005 - 1.030 [facility] Urine Reflex to Culture Not Indicated [facility] Urobilinogen, Urine 0.2 NINF [facility] Urinalysis, reflex to cultur gurinder 06-24-2022 Urine Reflexed to Culture Not Indicated Normal [facility] Comment on above: Performed By: #### U AR #### [facility] [address] [place] [address] Bilirubin Ql (U) Negative Normal Negative [facility] Comment on above: Performed By: #### U AR #### [facility] [address] [place] [address] Clarity (U) Clear Normal Clear [facility] Comment on above: Performed By: #### U AR #### [facility] [address] [place] [address] Color (U) Yellow Normal Straw/[place] [facility] Comment on above: Performed By: #### U AR #### [facility] [address] [place] [address] Glucose Ql (U) Negative Normal Negative [facility] Comment on above: Performed By: #### U AR #### [facility] [address] [place] [address] Hemoglobin Ql (U) Negative Normal Negative [facility] Comment on above: Performed By: #### U AR #### [facility] [address] [place] [address] Ketones Ql (U) Negative Normal Negative [facility] Comment on above: Performed By: #### U AR #### [facility] [address] [place] [address] Leukocyte esterase Test strip Ql (U) TRACE Abnormal Negative [facility] Comment on above: Performed By: #### U AR #### [facility] [address] [place] [address] Nitrite Ql (U) Negative Normal Negative [facility] Comment on above: Performed By: #### U AR #### [facility] [address] [place] [address] pH (U) 7.0 [pH] Normal 5.0-9.0 [facility] Comment on above: Performed By: #### U AR #### [facility] [address] [place] [address] Protein Ql (U) 30 mg/dL Abnormal Negative [facility] Comment on above: Performed By: #### U AR #### [facility] [address] [place] [address] Specific gravity (U) [Rel density] 1.010 Normal 1.005-1.03 [facility] Comment on above: Performed By: #### U AR #### [facility] [address] [place] [address] Urobilinogen Qn (U) 0.2 {Reji'U}/dL Normal < 2.0 [facility] Comment on above: Performed By: #### U AR #### [facility] [address] [place] [address] Urine Microscopicon 06-25-19 23 Urine Bacteria FEW Abnormal Negative [facility] Comment on above: Performed By: #### U MARIA ELENA #### [facility] [address] [place] [address] Urine Epithelial Cells Auto 0-2 Normal 0-5 [facility] Comment on above: Performed By: #### U MARIA ELENA #### [facility] [address] [place] [address] Urine Hyaline Casts Auto 0-1 Normal 0-5 [facility] Comment on above: Performed By: #### U MARIA ELENA #### [facility] [address] [place] [address] Urine RBC Auto 0-2 Normal 0-5 [facility] Comment on above: Performed By: #### U MARIA ELENA #### [facility] [address] [place] [address] Urine WBC Auto 3-5 Normal 0-5 [facility] Comment on above: Performed By: #### U MARIA ELENA #### [facility] [address] [place] [address] BILATERAL KNEE COMPLT, 4 OR MORE VIEWSon 05-18-2022 BILATERAL KNEE COMPLT, 4 OR MORE VIEWS Patient Name: GEETA SHELTON STUDY: BILATERAL KNEE; COMPLT, 4 OR MORE VIEWS; ; 05/18/2022 9:07 am INDICATION: pain M25.561: Acute pain of both knees M25.562:. ACCESSION NUMBER(S): [id number] ORDERING CLINICIAN: ACOSTA SCHAFER FINDINGS: Weightbearing four [...] Electronically signed by: ACOSTA SCHAFER MD Normal [facility] Initial Visit (Orthopaedic S urgery)on 05-18-2022 Initial [...] voice recognition (more content not included)... [facility]-18-[facility]22 XR Knee 4 Views [facility] Work Phone: Albumin [Mass/volume] in Ser um or PlasmaOrdered By: Elizabeth Alvarado on 05-07-2022 Albumin [Mass/Vol] 3.9 g/dL 3.2-5.5 [facility] Alkaline phosphatase [Enzyma tic activity/volume] in Serum or PlasmaOrdered By: Elizabeth Alvarado on 05-07-2022 ALP [Catalytic activity/Vol] 83 U/L 32-92 [facility] Aspartate aminotransferase [ Enzymatic activity/volume] in Serum or PlasmaOrdered By: Elizabeth Alvarado on 05-07-2022 AST [Catalytic activity/Vol] 56 U/L 10-42 [facility] Basophils Auto (Bld) [#/Vol] Ordered By: Elizabeth Alvarado on 05-07-2022 Basophils (Bld) [#/Vol] 0.1 10*3/uL 0.0-0.2 [facility] Basophils/100 WBC Auto (Bld) Ordered By: Elizabeth Alvarado on 05-07-2022 Basophils/100 WBC (Bld) 0.7 % . F [facility] Bilirubin.total [Mass/volume ] in Serum or PlasmaOrdered By: Elizabeth Alvarado on 05-07-2022 Bilirubin [Mass/Vol] 0.6 mg/dL 0.3-1.2 [facility] Calcium [Mass/volume] in Ser um or PlasmaOrdered By: Elizabeth Alvarado on 05-07-2022 Calcium [Mass/Vol] 9.1 mg/dL 8.2-10.2 [facility] Carbon dioxide, total [Moles /volume] in Serum or PlasmaOrdered By: Elizabeth Alvarado on 05-07-2022 CO2 [Moles/Vol] 28.1 mmol/L 22.0-30.0 [facility] Chloride [Moles/volume] in S hugo or PlasmaOrdered By: Elizabeth Alvarado on 05-07-2022 Chloride [Moles/Vol] 100 mmol/L 95-114 [facility] Cholesterol [Mass/volume] in Serum or PlasmaOrdered By: Elizabeth Alvarado on 05-07-2022 Cholesterol [Mass/Vol] 181 mg/dL 140-200 [facility] Comment on above: Chol less than 200 m g/dl low riskChol 201-239 mg/dl borderline riskChol 240 mg/dl and greater high risk Cholesterol in LDL Calc [Mas s/Vol]Ordered By: Elizabeth Alvarado on 05-07-2022 Cholesterol in LDL [Mass/Vol] 102 mg/dL 0-100 [facility] Comment on above: LDL ATP III CLASSIFI CATIONLDL less than 100 mg/dL OptimalLDL 100-129 mg/dL Near or above optimalLDL 130-159 mg/dL Borderline highLDL 160-189 mg/dL HighLDL greater than 189 mg/dL Very high Cholesterol in VLDL Calc [Ma ss/Vol]Ordered By: Elizabeth Alvarado on 05-07-2022 Cholesterol in VLDL [Mass/Vol] 20 mg/dL [facility] Creatinine and Glomerular fi ltration rate.predicted panel (S/P/Bld)Ordered By: Elizabeth Alvarado on 05-07-2022 Creatinine [Mass/Vol] 0.65 mg/dL 0.44-1.03 [facility] Eosinophils Auto (Bld) [#/Vo l]Ordered By: Elizabeth Alvarado on 05-07-2022 Eosinophils (Bld) [#/Vol] 0.1 10*3/uL 0.0-0.45 [facility] Eosinophils/100 WBC Auto (Bl d)Ordered By: Elizabeth Alvarado on 05-07-2022 Eosinophils/100 WBC (Bld) 1.8 % . [facility] Erythrocyte distribution wid th Auto (RBC) [Ratio]Ordered By: Elizabeth Alvarado on 05-07-2022 Erythrocyte distribution width (RBC) [Ratio] 17.8 % 11.9-15.3 [facility] Estimated glomerular filtrat ion rate (GFR) non- AmericanOrdered By: Elizabeth Alvarado on 05-07-2022 GFR/1.73 sq M.predicted among non-blacks MDRD (S/P/Bld) [Vol rate/Area] > 60 mL/Min [facility] Globulin Calc (S) [Mass/Vol] Ordered By: Elizabeth Alvarado on 05-07-2022 Globulin (S) [Mass/Vol] 3.7 g/dL [facility] Glucose [Mass/volume] in Ser um or PlasmaOrdered By: Elizabeth Alvarado on 05-07-2022 Glucose [Mass/Vol] 137 mg/dL 70-100 [facility] Comment on above: ADA recommended refe rence rangeRandom Glucose Reference Range is dependent on time and content of last meal. Glucose of more than 200 mg/dL in a nonstressed, ambulatory subject supports the diagnosis of Diabetes Mellitus. Hematocrit Auto (Bld) [Volum e fraction]Ordered By: Elizabeth Alvarado on 05-07-2022 Hematocrit (Bld) [Volume fraction] 45.4 % 34.0-46.4 [facility] Hemoglobin [Mass/volume] in BloodOrdered By: Elizabeth Alvarado on 05-07-2022 Hemoglobin (Bld) [Mass/Vol] 14.1 g/dL 11.8-15.4 [facility] Leukocytes [#/volume] correc silverio for nucleated erythrocytes in Blood by Automated counOrdered By: Elizabeth Alvarado on 05-07-2022 WBC corrected for nucl RBC Auto (Bld) [#/Vol] 7.9 10*3/uL 3.8-11.6 [facility] Lymphocytes Auto (Bld) [#/Vo l]Ordered By: Elizabeth Alvarado on 05-07-2022 Lymphocytes (Bld) [#/Vol] 2.4 10*3/uL 1.00-4.8 [facility] Lymphocytes/100 WBC Auto (Bl d)Ordered By: Elizabeth Alvarado on 05-07-2022 Lymphocytes/100 WBC (Bld) 30.9 % . [facility] MCH Auto (RBC) [Entitic mass ]Ordered By: Elizabeth Alvarado on 05-07-2022 MCH (RBC) [Entitic mass] 24.6 pg 24.7-34.3 [facility] MCHC Auto (RBC) [Mass/Vol]Or dered By: Elizabeth Alvarado on 05-07-2022 MCHC (RBC) [Mass/Vol] 31.0 g/dL 32.0-35.0 [facility] MCV Auto (RBC) [Entitic vol] Ordered By: Elizabeth Alvarado on 05-07-2022 MCV (RBC) [Entitic vol] 79.4 fL 80-[address] [facility] Monocytes Auto (Bld) [#/Vol] Ordered By: Elizabeth Alvarado on 05-07-2022 Monocytes (Bld) [#/Vol] 0.7 10*3/uL 0.0-0.8 [facility] Monocytes/100 WBC Auto (Bld) Ordered By: Elizabeth Alvarado on 05-07-2022 Monocytes/100 WBC (Bld) 9.3 % . F [facility] Neutrophils Auto (Bld) [#/Vo l]Ordered By: Elizabeth Alvarado on 05-07-2022 Neutrophils (Bld) [#/Vol] 4.5 10*3/uL 1.8-7.7 [facility] Neutrophils/100 WBC Auto (Bl d)Ordered By: Elizabeth Alvarado on 05-07-2022 Neutrophils/100 WBC (Bld) 57.3 % . [facility] No Panel InformationOrdered By: Elizabeth Alvarado on 05-07-2022 Estimated GFR () > 60 mL/Min [facility] Comment on above: GFR estimated refere nce range: According to KDOQI guidelines, <60 ml/min/1.73m2 is sufficient to diagnose a patient with chronic kidney disease. Pharmacy Creatinine Clearance (Chem N/A [facility] Nucleated erythrocytes [Pres ence] in Blood by Automated countOrdered By: Elizabeth Alvarado on 05-07-2022 Nucleated RBC Auto Ql (Bld) 0.1 /100{WBC} 0-0.5 [facility] Platelet mean volume Auto (B ld) [Entitic vol]Ordered By: Elizabeth Alvarado on 05-07-2022 Platelet mean volume (Bld) [Entitic vol] 9.4 fL 6.3-10.7 [facility] Platelets Auto (Bld) [#/Vol] Ordered By: Elizabeth Alvarado on 05-07-2022 Platelets (Bld) [#/Vol] 242 10*3/uL 150-450 [facility] Potassium [Moles/volume] in Serum or PlasmaOrdered By: Elizabeth Alvarado on 05-07-2022 Potassium [Moles/Vol] 4.3 mmol/L 3.5-5.1 [facility] Protein [Mass/volume] in Ser um or PlasmaOrdered By: Elizabeth Alvarado on 05-07-2022 Protein [Mass/Vol] 7.6 g/dL 6.1-7.9 [facility] RBC Auto (Bld) [#/Vol]Ordere d By: Elizabeth Alvarado on 05-07-2022 RBC (Bld) [#/Vol] 5.72 10*6/uL 3.60-5.00 [facility] Serum or plasma alanine ulloa otransferase measurement without P-5'-P (enzymatic activiOrdered By: Elizabeth Alvarado on 05-07-2022 ALT No additional P-5'-P [Catalytic activity/Vol] 61 U/L 10-60 [facility] Serum or plasma albumin/glob ulin mass ratioOrdered By: Elizabeth Alvarado on 05-07-2022 Albumin/Globulin [Mass ratio] 1.1 {ratio} [facility] Serum or plasma anion gap de terminationOrdered By: Elizabeth Alvarado on 05-07-2022 Anion gap [Moles/Vol] 11.2 mmol/L 6.0-15.0 [facility] Serum or plasma high density lipoprotein (HDL) cholesterol measurementOrdered By: Elizabeth Alvarado on 05-07-2022 Cholesterol in HDL [Mass/Vol] 58 mg/dL 35-85 [facility] Comment on above: HDL CHOL ATP-III CLA SSIFICATION Cardiovascular RiskHDL > or equal to 60 mg/dL LOWHDL < 40 mg/dL HIGH Serum or plasma total choles terol/high density lipoprotein (HDL) cholesterol mass ratOrdered By: Elizabeth Alvarado on 05-07-2022 Cholesterol.total/Choles terol in HDL [Mass ratio] 3.1 {ratio} <5.0 [facility] Sodium [Moles/volume] in Ser um or PlasmaOrdered By: Elizabeth Alvarado on 05-07-2022 Sodium [Moles/Vol] 135 mmol/L 136-146 [facility] TSH DL <= 0.005 mIU/L QnOrde red By: Elizabeth Alvarado on 01-13-2023 TSH Qn 4.21 m[IU]/L 0.45-5.33 [facility] Triglyceride [Mass/volume] i n Serum or PlasmaOrdered By: Elizabeth Alvarado on 05-07-2022 Triglyceride [Mass/Vol] 103 mg/dL 35-[address] [facility] Comment on above: TRIG ATP III CLASSIF ICATIONTRIG less than 150 mg/dL NormalTRIG 150-199 mg/dL Borderline highTRIG 200-500 mg/dL High TRIG greater than 500 mg/dL Very highStandard traceable to the Center for Disease Conrtrol and Prevention (CDC) test method. Urea nitrogen [Mass/volume] in Serum or PlasmaOrdered By: Elizabeth Alvarado on 05-07-2022 Urea nitrogen [Mass/Vol] 14 mg/dL 01-15 [facility] WBC Auto (Bld) [#/Vol]Ordere d By: Elizabeth Alvarado on 05-07-2022 WBC (Bld) [#/Vol] 7.9 10*3/uL 3.8-11.6 [facility] Basophils Auto (Bld) [#/Vol] Ordered By: Tyler Villeda on 04-13-2022 Basophils (Bld) [#/Vol] 0.1 10*3/uL 0.0-0.2 [facility] Basophils/100 WBC Auto (Bld) Ordered By: Tyler Villeda on 04-13-2022 Basophils/100 WBC (Bld) 0.6 % . F [facility] C reactive protein [Mass/vol ume] in Serum or PlasmaOrdered By: Tyler Villeda on 04-13-2022 CRP [Mass/Vol] 2.1 mg/dL 0.0-1.0 [facility] Eosinophils Auto (Bld) [#/Vo l]Ordered By: Tyler Villeda on 04-13-2022 Eosinophils (Bld) [#/Vol] 0.2 10*3/uL 0.0-0.45 [facility] Eosinophils/100 WBC Auto (Bl d)Ordered By: Tyler Villeda on 04-13-2022 Eosinophils/100 WBC (Bld) 2.0 % . [facility] Erythrocyte distribution wid th Auto (RBC) [Ratio]Ordered By: Tyler Villeda on 04-13-2022 Erythrocyte distribution width (RBC) [Ratio] 17.6 % 11.9-15.3 [facility] Erythrocyte sedimentation ra te by Photometric methodOrdered By: Tyler iVlleda on 04-13-2022 ESR Photometric method (Bld) [Velocity] 54 mm/hr 0-29 [facility] Hematocrit Auto (Bld) [Volum e fraction]Ordered By: Tyler Villeda on 04-13-2022 Hematocrit (Bld) [Volume fraction] 44.4 % 34.0-46.4 [facility] Hemoglobin [Mass/volume] in BloodOrdered By: Tyler Villeda on 04-13-2022 Hemoglobin (Bld) [Mass/Vol] 14.3 g/dL 11.8-15.4 [facility] Leukocytes [#/volume] correc silverio for nucleated erythrocytes in Blood by Automated counOrdered By: Tyler Villeda on 04-13-2022 WBC corrected for nucl RBC Auto (Bld) [#/Vol] 8.6 10*3/uL 3.8-11.6 [facility] Lymphocytes Auto (Bld) [#/Vo l]Ordered By: Tyler Villeda on 04-13-2022 Lymphocytes (Bld) [#/Vol] 2.9 10*3/uL 1.00-4.8 [facility] Lymphocytes/100 WBC Auto (Bl d)Ordered By: Tyler Villeda on 04-13-2022 Lymphocytes/100 WBC (Bld) 33.6 % . [facility] MCH Auto (RBC) [Entitic mass ]Ordered By: Tyler Villeda on 04-13-2022 MCH (RBC) [Entitic mass] 24.9 pg 24.7-34.3 [facility] MCHC Auto (RBC) [Mass/Vol]Or dered By: Tyler Villeda on 04-13-2022 MCHC (RBC) [Mass/Vol] 32.2 g/dL 32.0-35.0 [facility] MCV Auto (RBC) [Entitic vol] Ordered By: Tyler Villeda on 04-13-2022 MCV (RBC) [Entitic vol] 77.4 fL 80-[address] [facility] Monocytes Auto (Bld) [#/Vol] Ordered By: Tyler Villeda on 04-13-2022 Monocytes (Bld) [#/Vol] 0.9 10*3/uL 0.0-0.8 [facility] Monocytes/100 WBC Auto (Bld) Ordered By: Tyler Villeda on 04-13-2022 Monocytes/100 WBC (Bld) 10.0 % . [facility] Neutrophils Auto (Bld) [#/Vo l]Ordered By: Tyler Villeda on 04-13-2022 Neutrophils (Bld) [#/Vol] 4.6 10*3/uL 1.8-7.7 [facility] Neutrophils/100 WBC Auto (Bl d)Ordered By: Tyler Villeda on 04-13-2022 Neutrophils/100 WBC (Bld) 53.8 % . [facility] Nucleated erythrocytes [Pres ence] in Blood by Automated countOrdered By: Tyler Villeda on 04-13-2022 Nucleated RBC Auto Ql (Bld) 0.1 /100{WBC} 0-0.5 [facility] Platelet mean volume Auto (B ld) [Entitic vol]Ordered By: Tyler Villeda on 04-13-2022 Platelet mean volume (Bld) [Entitic vol] 9.1 fL 6.3-10.7 [facility] Platelets Auto (Bld) [#/Vol] Ordered By: Tyler Villeda on 04-13-2022 Platelets (Bld) [#/Vol] 296 10*3/uL 150-450 [facility] RBC Auto (Bld) [#/Vol]Ordere d By: Tyler Villeda on 04-13-2022 RBC (Bld) [#/Vol] 5.73 10*6/uL 3.60-5.00 [facility] WBC Auto (Bld) [#/Vol]Ordere d By: Tyler Villeda on 04-13-2022 WBC (Bld) [#/Vol] 8.6 10*3/uL 3.8-11.6 [facility] Serum or plasma follitropin measurement (units/volume)Ordered By: Elizabeth Alvarado on 12-03-2021 Follitropin Qn 18.3 m[IU]/mL [facility] Comment on above: FEMALE NORMALS (JUDIE ENOPAUSE) MID-FOLLICULAR PHASE: 3.9-8.8 mIU/mL MID-CYCLE PEAK: 4.5-22.5 mIU/mL MID-LUTEAL PHASE: 1.8-5.1 mIU/mL FEMALE NORMALS (POSTMENOPAUSE): 16.7-113.6 mIU/mL MALE NORMALS: 1.3-19.3 mIU/mL TSH DL <= 0.005 mIU/L QnOrde red By: Elizabeth Alvarado on 12-03-2021 TSH Qn 4.23 m[IU]/L 0.45-5.33 [facility] Total estrogen measurementOr dered By: Elizabeth Alvarado on 12-03-2021 Estrogen [Mass/Vol] 83 pg/mL . [facility] Comment on above: Prepubertal < 40 Female Cycle: 1-10 Days 16 - 328 11-20 Days 34 - 501 21-30 Days 48 - 350 Post-Menopausal 40 - 244 Performed at: [facility] [address] [id number] [employer]: Virgie Isaac MD, Phone: [phone] Coding Summary.on 01-26-2019 Coding Summary. CODING DATE: 019 FINAL [facility] STATUS: Home (Routine DC) PAYOR: Medicare APC DESCRIPTION 5113 Level 3 Musculoskeletal Procedures ADMIT DX: REASON FOR VISIT DX: M76.61 Achilles tendinitis, right leg FINAL DX: PRINCIPAL: M76.61 Achilles tendinitis, right leg SECONDARY: M24.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, right ankle I10 Essential (primary) hypertension J45.909 Unspecified asthma, uncomplicated K21.9 Gastro-esophageal reflux disease without esophagitis Z79.899 Other alf (current) drug therapy PYMT PROC APC STAT DESCRIPTION DOCTOR NAME DATE 99129 9393 J1 Tenotomy, percutaneous, Thuan Travis DPM 01/24/2019 Achilles tendon (separate procedure); general anesthesia RT Right side (used to identify procedures performed on the right side of the body) 00852 Anesthesia for Shahab Almanzar Jr., DO 01/24/2019 [...] Revised Date Saved: 01/26/2019 11:32 am Normal [facility] Inpatient Patient Summaryon 01-24-2019 Inpatient Patient Summary [facility] Clinical Discharge Instructions PERSON INFORMATION Name: GEETA SHELTON PHYSICIANS Admitting Physician: Thuan Travis DPM Attending Physician: Thuan Travis DPM PCP: Nichole Caballero Discharge Diagnosis: Comment: PATIENT EDUCATION INFORMATION Instructions: Post Op Patient Instructions - FT (Custom); Foot Cryocuff Patient Instructions - FT (Custom); Brown - Post Operative Instructions (Revised 12/20/13) (Custom) (LET121) Medication Leaflets: Follow up: MEDICATION LIST Comment: Normal [facility] Lyteson 01-24-2019 Anion gap [Moles/Vol] 14 mmol/L Normal 6-16 [facility] Comment on above: Performed By: #### 2 949635, 1999711, 2103480, 96188566, 2229520, 9621390 #### [facility] [address] [place] [address] Chloride [Moles/Vol] 107 mmol/L Normal 101-111 [facility] Comment on above: Performed By: #### 2 976898, 7435738, 4816896, 43425438, 4650641, 5830306 #### [facility] [address] [place] [address] CO2 [Moles/Vol] 23 mmol/L Normal 21-31 [facility] Comment on above: Performed By: #### 2 547181, 8774241, 8485231, 97487420, 1116612, 8293028 #### [facility] [address] [place] [address] Potassium [Moles/Vol] 4.9 mmol/L Normal 3.5-5.3 [facility] Comment on above: Performed By: #### 2 203477, 4366987, 2682542, 96344614, 1066383, 9287168 #### [facility] [address] [place] [address] Sodium [Moles/Vol] 139 mmol/L Normal 135-145 [facility] Comment on above: Performed By: #### 2 739338, 6076018, 4779539, 87735550, 1334807, 1123008 #### [facility] [address] [place] [address] Main OR Intraoperative Recor don 01-24-2019 Main OR Intraoperative Record IntraOp Document Type FT Summary Primary Physician: Thuan Travis DPM Finalized Date/Time: 01/24/19 11:33:24 Pt. Name: GEETA SHELTON/Sex: 1970 Female Med Rec #: [id number] Physician: Thuan Travis DPM Financial #: [id number] Pt. Type: A Room/Bed: [facility] Admit/Disch: 01/24/19 07:58:48 - Institution: Case [...] Cheryl Role Performed Anesthesiologist Surgeon - Primary VOCATIONAL INSTRUCTOR Lunchroom Monitor Time In 01/24/19 08:48:00 01/24/19 09:00:00 01/24/19 [...] Zuly Duarte CST, Prashant Panda Role Performed Academic Specialist - Primary Academic Specialist - Other Scrub - Primary Time In [...] Met? Yes TENDONITIS Last Modified By: Kallie uGnter RN 01/24/19 09:13:46 Post-Care Text: The patient [...] Gunter RN, Brown Outcomes Met? Yes Bhavna LCAKEY Schmitz RN, Zuly Joyce Last Modified By: [...] AGUILAR, CNOR, Alpa AGUILAR, Zuly Luna, Gerald CLAIMS ACCOUNT MANAGER, R, Gerald QUIROZ, Prashant Panda Outcomes Met? [...] to transfer/transport General Comments: REPORT GIVEN TO BRICK PAVERRN. Cy PRIDE RN Dressing/Packing FT Pre-Care Text: [...] BLANKET MISTRAL AIR Quantity 1 Aid TORSO [[id number]][F] Fluid/[place] Unit Mistral warming system Setting HIGH/43 Body Site Upper anterior torso Last Modified By: Kallie Gunter RN 01/24/19 08:46:43 Case Comments Finalized By: Maye Silverio CST Document Signatures Signed By: Kallie Gunter RN 01/24/19 09:26 Maye Silverio CST 01/24/19 11:33 Normal [facility] Main OR PACU I Recordon Main OR PACU I Record PACU Phase I Docum ent Type FT Summary Primary Physician: Thuan Travis DPM Finalized Date/Time: 01/24/19 10:08:45 Pt. Name: GEETA SHELTON/Sex: 1970 Female Med Rec #: [id number] Physician: Thuan Travis DPM Financial #: [id number] Pt. Type: A Room/Bed: Admit/Disch: 01/24/19 07:58:48 [...] By: Swathi Carr RN 01/24/19 10:08 Normal [facility] Main OR PACU II Recordon Main OR PACU II Record PACU Phase II Doc ument Type FT Summary Primary Physician: Thuan Travis DPM Finalized Date/Time: 01/24/19 13:09:21 Pt. Name: GEETA SHELTON/Sex: 1970 Female Med Rec #: [id number] Physician: Thuan Travis DPM Financial #: [id number] Pt. Type: [place] Room/Bed: Admit/Disch: 01/24/19 07:58:48 [...] By: Keeley Putnam LPN 01/24/19 13:09 Normal [facility] Main OR Preoperative Recordo n 01-24-2019 Main OR Preoperative Record PreOp Document Type FT Summary Primary Physician: Thuan Travis DPM Finalized Date/Time: 01/24/19 09:12:07 Pt. Name: GEETA SHELTON/Sex: 1970 Female Med Rec #: [id number] Physician: Thuan Travis DPM Financial #: [id number] Pt. Type: A Room/Bed: [facility]/01 Admit/Disch: 01/24/19 07:58:48 - Institution: Case [...] By: Kallie Gunter RN 01/24/19 09:12 Normal [facility] Operative Reporton 9 Operative Report Date [...] first postoperative visit. Sania Pantoja Dictated: 01/24/2019 #[id number] Typed: 01/24/2019 #[id number] cc: Thuan Travis D.P.M. [facility] Comment on above: Result Comment: Elec tronically Signed By: Thuan Travis DPM\.br\Date and Time Signed: 01/24/19 10:24 EDT Patient Education - Texton 1 Patient Education - Text (Inserted Image . Unable to display) [place], [place] Thuan Travis DPM, FACFAS POST OPERATIVE [...] feel free to call the doctor at: [phone] or [phone] Travis paged. ___ Patient signature Date ___ Dr. Anand Sauer DPM, FACFAS Date Revised: 06-02 [facility] Progress Note-Physicianon Progress Note-Physician Patient: [...] 1 ml. Complications: None. Anesthesia type: General. [facility] Comment on above: Result Comment: Elec tronically Signed By: Thuan Travis DPM\.br\Date and Time Signed: 01/24/19 09:27 EDT Coding Summary.on 01-12-2019 Coding Summary. CODING DATE: 019 [facility] STATUS: Home (Routine DC) PAYOR: Medicare ADMIT [...] Olivarez CphT Date Saved: 01/12/2019 11:10 am [facility] BUNon 01-11-2019 Urea nitrogen [Mass/Vol] 29 mg/dL High 5-21 [facility] Comment on above: Performed By: #### 2 032598, 6775368, 1962592, 64356977, 2975317, 1483468 #### [facility] [address] [place] [address] CBC w/Indiceson 01-11-2019 Erythrocyte distribution width (RBC) [Ratio] 16.1 % High 10.9-14.2 [facility] Comment on above: Performed By: #### 1 2231717, 3589762, 8556547, 3214780, 8223093 #### [facility] [address] [place] [address] Hematocrit (Bld) [Volume fraction] 42.1 % Normal 34.0-46.0 [facility] Comment on above: Performed By: #### 1 4657804, 3264160, 7689972, 2537082, 8704019 #### [facility] [address] [place] [address] Hemoglobin (Bld) [Mass/Vol] 13.8 g/dL Normal 12.0-16.0 [facility] Comment on above: Performed By: #### 1 8984151, 1171329, 3743289, 4936446, 1198597 #### [facility] [address] [place] [address] MCH (RBC) [Entitic mass] 25.8 pg Low 27.0-34.0 [facility] Comment on above: Performed By: #### 1 8400448, 0850257, 5028203, 3628558, 8133367 #### [facility] [address] [place] [address] MCHC (RBC) [Mass/Vol] 32.8 g/dL Low 33.3-35.7 [facility] Comment on above: Performed By: #### 1 9970530, 5946374, 9912764, 5607198, 7773818 #### [facility] [address] [place] [address] MCV (RBC) [Entitic vol] 78.5 fL Low 80.0-100.0 [facility] Comment on above: Performed By: #### 1 4509097, 7628107, 6673582, 6294513, 6203216 #### [facility] [address] [place] [address] Platelet mean volume (Bld) [Entitic vol] 9.9 fL Normal 6.4-10.8 [facility] Comment on above: Performed By: #### 1 1187705, 3131565, 4450957, 2088939, 0889237 #### [facility] [address] [place] [address] Platelets (Bld) [#/Vol] 283.0 E9/L Normal 150. 0-500. 0 [facility] Comment on above: Performed By: #### 1 3386655, 7668735, 0802378, 7366954, 1450433 #### [facility] [address] [place] [address] RBC (Bld) [#/Vol] 5.4 E12/L Normal 4.3-5.9 [facility] Comment on above: Performed By: #### 1 1920055, 5206150, 5515827, 7273655, 4402346 #### [facility] [address] [place] [address] WBC corrected for nucl RBC Auto (Bld) [#/Vol] 8.6 E9/L Normal 4.0-11.0 [facility] Comment on above: Performed By: #### 1 8982928, 8012864, 2722296, 8817663, 3430845 #### [facility] [address] [place] [address] Creatinineon 01-11-2019 Creatinine [Mass/Vol] 1.0 mg/dL Normal 0.5-1.3 [facility] Comment on above: Performed By: #### 2 655274, 3736461, 4456810, 80325863, 6877491, 4091216 #### [facility] [address] [place] [address] Glucoseon 01-11-2019 Glucose [Mass/Vol] 95 mg/dL Normal 55-199 [facility] Comment on above: Performed By: #### 1 1454569, 6930453, 6057312, 0522229, 8574982 #### [facility] [address] [place] [address] eGFRon 01-11-2019 GFR/1.73 sq M predicted among blacks MDRD (S/P/Bld) [Vol rate/Area] mL/min/{1.73_m2} Normal >=59 [facility] Comment on above: Order Comment: Order added by Discern Expert. Result Comment: eGFR is race adjusted. AA=. Performed By: #### 2 341533, 1577188, 8023488, 47127132, 3206230, 5969916 #### [facility] [address] [place] [address] GFR/1.73 sq M predicted among non-blacks MDRD (S/P/Bld) [Vol rate/Area] 59 mL/min/1.73 m2 Normal >=59 [facility] Comment on above: Order Comment: Order added by Discern Expert. Result Comment: Director Recreation stefanie kidney disease could be indicated at eGFR's of less than 60 mL/min/1.73m2. Kidney failure is indicated at less than 15 mL/min/1.73m2. Performed By: #### 2 052762, 2899939, 7752675, 09505970, 9417897, 8914762 #### [facility] [address] [place] [address] Coding Summary.on 12-15-2018 Coding Summary. CODING DATE: 019 FINAL [facility] STATUS: Home (Routine DC) PAYOR: Medicare [...] CphT Date Saved: 12/15/2018 01:36 pm Normal [facility] BUNon 12-14-2018 Urea nitrogen [Mass/Vol] 19 mg/dL Normal 5-21 [facility] Comment on above: Performed By: #### 2 221681, 2413550, 9325286, 57405301, 5009714, 5295126 #### [facility] [address] [place] [address] CBC w/Indiceson 12-14-2018 Erythrocyte distribution width (RBC) [Ratio] 17.1 % High 10.9-14.2 [facility] Comment on above: Performed By: #### 2 837182, 1166527, 2082415, 53241217, 3657561, 1943265 #### [facility] [address] [place] [address] Hematocrit (Bld) [Volume fraction] 41.5 % Normal 34.0-46.0 [facility] Comment on above: Performed By: #### 2 213742, 0224896, 5382832, 19212619, 4325867, 9427091 #### [facility] [address] [place] [address] Hemoglobin (Bld) [Mass/Vol] 13.2 g/dL Normal 12.0-16.0 [facility] Comment on above: Performed By: #### 2 815813, 9758884, 8113359, 75066860, 4169014, 8716039 #### [facility] [address] [place] [address] MCH (RBC) [Entitic mass] 25.0 pg Low 27.0-34.0 [facility] Comment on above: Performed By: #### 2 677956, 9469878, 6563703, 34069246, 2120494, 5448815 #### [facility] [address] [place] [address] MCHC (RBC) [Mass/Vol] 31.7 g/dL Low 33.3-35.7 [facility] Comment on above: Performed By: #### 2 381598, 8882874, 3227065, 70172520, 6972460, 1539120 #### [facility] [address] [place] [address] MCV (RBC) [Entitic vol] 78.7 fL Low 80.0-100.0 [facility] Comment on above: Performed By: #### 2 541919, 5607622, 4090591, 63567697, 9972756, 8439423 #### [facility] [address] [place] [address] Platelet mean volume (Bld) [Entitic vol] 9.4 fL Normal 6.4-10.8 [facility] Comment on above: Performed By: #### 2 828475, 5457673, 7186262, 31569558, 1404479, 0170667 #### [facility] [address] [place] [address] Platelets (Bld) [#/Vol] 268.0 E9/L Normal 150. 0-500. 0 [facility] Comment on above: Performed By: #### 2 330267, 1105415, 4001658, 36365862, 9626829, 8038908 #### [facility] [address] [place] [address] RBC (Bld) [#/Vol] 5.3 E12/L Normal 4.3-5.9 [facility] Comment on above: Performed By: #### 2 371759, 5166583, 1272979, 39220679, 3218746, 6367474 #### [facility] [address] [place] [address] WBC corrected for nucl RBC Auto (Bld) [#/Vol] 10.6 E9/L Normal 4.0-11.0 [facility] Comment on above: Performed By: #### 2 925057, 0363772, 9862977, 41543437, 6724876, 0926585 #### [facility] [address] [place] [address] Creatinineon 12-14-2018 Creatinine [Mass/Vol] 0.7 mg/dL Normal 0.5-1.3 [facility] Comment on above: Performed By: #### 2 189193, 6081249, 5490555, 31000680, 8400210, 1632525 #### [facility] [address] [place] [address] Glucoseon 12-14-2018 Glucose [Mass/Vol] 138 mg/dL Normal 55-199 [facility] Comment on above: Performed By: #### 2 229057, 1475187, 7201893, 39377438, 0011108, 1551769 #### [facility] [address] [place] [address] Lyteson 12-14-2018 Anion gap [Moles/Vol] 17 mmol/L High 6-16 [facility] Comment on above: Performed By: #### 2 297116, 4327993, 5785862, 07374853, 7900766, 4240336 #### [facility] [address] [place] [address] Chloride [Moles/Vol] 95 mmol/L Low 101-[address] [facility] Comment on above: Performed By: #### 2 034045, 4371587, 8359825, 24651385, 4060429, 5089129 #### [facility] [address] [place] [address] CO2 [Moles/Vol] 26 mmol/L Normal 21-31 [facility] Comment on above: Performed By: #### 2 820644, 9576228, 4388064, 03496771, 4546955, 8555419 #### [facility] [address] [place] [address] Potassium [Moles/Vol] 3.9 mmol/L Normal 3.5-5.3 [facility] Comment on above: Performed By: #### 2 966792, 9216885, 6381051, 06026364, 7919139, 3811788 #### [facility] [address] [place] [address] Sodium [Moles/Vol] 134 mmol/L Low 135-145 [facility] Comment on above: Performed By: #### 2 089555, 3674237, 7027627, 70821095, 3653878, 4477719 #### [facility] [address] [place] [address] XR Chest 2 Viewson 9 XR Chest [...] MD Transcribed by: MAGEN Technologist: CC Normal [facility] eGFRon 12-14-2018 GFR/1.73 sq M predicted among blacks MDRD (S/P/Bld) [Vol rate/Area] mL/min/{1.73_m2} Normal >=59 [facility] Comment on above: Order Comment: Order added by Discern Expert. Result Comment: eGFR is race adjusted. AA=. Performed By: #### 2 854066, 0169737, 3945207, 35685955, 9527433, 1578073 #### [facility] [address] [place] [address] GFR/1.73 sq M predicted among non-blacks MDRD (S/P/Bld) [Vol rate/Area] mL/min/{1.73_m2} Normal >=59 [facility] Comment on above: Order Comment: Order added by Discern Expert. Result Comment: Director Recreation stefanie kidney disease could be indicated at eGFR's of less than 60 mL/min/1.73m2. Kidney failure is indicated at less than 15 mL/min/1.73m2. Performed By: #### 2 371207, 9594774, 3507548, 56985324, 8504391, 7080748 #### [facility] [address] [place] [address] Vital Signs Date Time Vital Sign Value Performing Clinician Facility 09-30-2023 09:36-0400 Body height 165.1 cm PHYSICIAN NO [facility] 09-30-2023 09:36-0400 Body mass index (BMI) [Ratio] 46.2 kg/m2 PHYSICIAN NO [facility] 09-30-2023 09:36-0400 Body temperature 97.6 [degF] PHYSICIAN NO [facility] 09-30-2023 09:36-0400 Body weight 126.09 kg PHYSICIAN NO [facility] 09-30-2023 09:36-0400 Diastolic blood pressure 85 mm[Hg] PHYSICIAN NO [facility] 09-30-2023 09:36-0400 Heart rate 87 /min PHYSICIAN NO [facility] 09-30-2023 09:36-0400 Respiratory rate 20 /min PHYSICIAN NO [facility] 09-30-2023 09:36-0400 SaO2% (BldA) [Mass fraction] 98 % PHYSICIAN NO [facility] 09-30-2023 09:36-0400 Systolic blood pressure 139 mm[Hg] PHYSICIAN NO [facility] 03-02-2023 10:45-0500 Body height 165.1 cm Tyler Jean Other [employer] Other 03-02-2023 10:45-0500 Body mass index (BMI) [Ratio] 44.76 kg/m2 Tyler Jean Other [employer] Other 03-02-2023 10:45-0500 Body temperature 96.7 [degF] Tyler Jean Other [employer] Other 03-02-2023 10:45-0500 Body weight 122.02 kg Tyler Jean Other [employer] Other 03-02-2023 10:45-0500 Diastolic blood pressure 82 mm[Hg] Tyler Mcnamaratyler Other [facility] [employer] Other 03-02-2023 10:45-0500 Respiratory rate 18 /min Tyler Mcnamaratyler Other [employer] Other 03-02-2023 10:45-0500 SaO2% (BldA) [Mass fraction] 96 % Tyler Mcnamaratyler Other [employer] Other 03-02-2023 10:45-0500 Systolic blood pressure 136 mm[Hg] Tyler Ted Other [facility] [employer] Other 09-21-2022 09:11-0400 Body weight 128.72 kg TELECASTING TECHNICIAN Elizabeth Myerholtz Work Phone: [facility] 09-21-2022 09:11-0400 Diastolic blood pressure 91 mm[Hg] TELECASTING TECHNICIAN Elizabeth Myerholtz Work Phone: [facility] 09-21-2022 09:11-0400 Heart rate 88 /min TELECASTING TECHNICIAN Elizabeth Myerholtz Work Phone: [facility] 09-21-2022 09:11-0400 Respiratory rate 20 /min TELECASTING TECHNICIAN Elizabeth Myerholtz Work Phone: [facility] 09-21-2022 09:11-0400 SaO2% (BldA) [Mass fraction] 96 % TELECASTING TECHNICIAN Elizabeth Myerholtz Work Phone: [facility] 09-21-2022 09:11-0400 Systolic blood pressure 145 mm[Hg] TELECASTING TECHNICIAN Elizabeth Myerholtz Work Phone: [facility] 08-16-2022 13:57-0400 Body temperature 98 [degF] TELECASTING TECHNICIAN Elizabeth Myerholtz Work Phone: [facility] 08-16-2022 13:42-0400 Body height 165.1 cm RHEA Alvarado Work Phone: [facility] 07-03-2022 08:14-0500 Body temperature 97.9 [degF] Acosta Schafer MD Work Phone: [facility] [employer] [facility] [employer] 07-03-2022 08:14-0500 Diastolic blood pressure 70 mm[Hg] Acosta Schafer MD Work Phone: [employer] [facility] 07-03-2022 08:14-0500 Heart rate 83 /min Acosta Schafer MD Work Phone: [facility] 07-03-2022 08:14-0500 Respiratory rate 18 /min Acosta Schafer MD Work Phone: [facility] [employer] 07-03-2022 08:14-0500 SaO2% (BldA) [Mass fraction] 98 % Acosta Schafer MD Work Phone: [employer] [facility] 07-03-2022 08:14-0500 Systolic blood pressure 129 mm[Hg] Acosta Schafer MD Work Phone: [facility] 07-02-2022 09:45-0500 Body mass index (BMI) [Ratio] 50.66 kg/m2 Acosta Schafer MD Work Phone: [employer] [facility] [facility] 07-02-2022 09:45-0500 Body weight 129.73 kg Acosta Schafer MD Work Phone: [employer] [facility] 06-24-2022 11:20-0500 Body height 160 cm Juan Rn [employer] [facility] 06-24-2022 11:20-0500 Body mass index (BMI) [Ratio] 50.79 kg/m2 Juan Rn [facility] 06-24-2022 11:20-0500 Body temperature 97.9 [degF] Juan Rn [facility] [employer] 06-24-2022 11:20-0500 Body weight 130.05 kg Juan Rn JULIO DAMIR [facility] 06-24-2022 11:20-0500 Diastolic blood pressure 87 mm[Hg] Mloz R[facility] 06-24-2022 11:20-0500 Heart rate 73 /min Mloz Rn JULIO REICH [facility] 06-24-2022 11:20-0500 Respiratory rate 16 /min Mloz Rn JULIO DAMIR [facility] 06-24-2022 11:20-0500 SaO2% (BldA) [Mass fraction] 98 % Mloz Rn JULIO [facility] 06-24-2022 11:20-0500 Systolic blood pressure 142 mm[Hg] Mloz Rn JULIO [facility] 05-18-2022 08:46-0500 Body height 165.1 cm Acosta Schafer MD Work Phone: [facility] Work Phone: 05-18-2022 08:46-0500 Body mass index (BMI) [Ratio] 45.93 kg/m2 Acosta Schafer MD Work Phone: [facility] Work Phone: 05-18-2022 08:46-0500 Body surface area Derived from formula 2.27 m2 Acosta Schafer MD Work Phone: [facility] Work Phone: 05-18-2022 08:46-0500 Body weight 125.19 kg Acosta Schafer MD Work Phone: [facility] Work Phone: Encounters Encounter Date Encounter Type Care Provider Facility Start: 09-30-2023 End: 09-30-2023 ambulatory PHYSICIAN NO [facility] Work Phone: Start: 09-30-2023 End: 09-30-2023 Patient encounter procedure PHYSICIAN NO [facility] Physician [facility] Ambulatory Work Phone: Start: 09-30-2023 Registered Recurring PHYSICIAN AKASH [facility] Work Phone: Start: 09-30-2023 ambulatory Lorrie Baig Facility: [facility] Start: 09-07-2023 End: 09-07-2023 Patient encounter procedure PHYSICIAN AKASH CH [facility] [place] Work Phone: Start: 09-07-2023 End: 09-07-2023 ambulatory Elizabeth Alvarado Facility:[facility] Start: 08-24-2023 End: 08-24-2023 Patient encounter procedure TELECASTING TECHNICIAN Elizabeth Alvarado Work Phone: [facility] Start: 08-24-2023 End: 08-24-2023 ambulatory Elizabeth Alvarado [facility] Work Phone: Start: 08-24-2023 End: 08-24-2023 Departed Referred TELECASTING TECHNICIAN Elizabeth Alvarado Work Phone: [facility] Start: 05-10-2023 End: 05-10-2023 Patient encounter procedure TELECASTING TECHNICIAN Elizabeth Alvarado Work Phone: [facility] Work Phone: Start: 05-10-2023 End: 05-10-2023 ambulatory TELECASTING TECHNICIAN Elizabeth Alvarado Work Phone: [facility] Work Phone: Start: 03-02-2023 End: 03-02-2023 ambulatory Tyler Jean Other [employer] Other Start: 03-02-2023 Office outpatient vi sit 25 minutes Tyler Jean [facility] Start: 02-14-2023 End: 02-14-2023 ambulatory TELECASTING TECHNICIAN Elizabeth Alvarado Work Phone: [facility] Work Phone: Start: 02-14-2023 End: 02-14-2023 Patient encounter procedure RHEA Alvarado Work Phone: [facility] [place] Work Phone: Start: 01-26-2023 [facility] visit new patient Sindy rubio [facility] Start: 01-26-2023 End: 01-26-2023 ambulatory RHEA Alvarado Work Phone: [employer] Other Start: 01-26-2023 End: 01-26-2023 Patient encounter procedure RHEA Alvarado Work Phone: [facility]XRay [place] Work Phone: Start: 12-29-2022 Patient encounter procedure [facility]osta Schafer MD [facility] Phone: [facility] Work Phone: Start: 12-29-2022 ambulatory Provider Pending Facili ty:[id number] Start: 11-25-2022 End: 11-25-2022 Patient encounter procedure RHEA Alvarado Work Phone: [facility]-Respiratory Therapy Work Phone: Start: 09-22-2022 Patient encounter procedure Acosta Schafer MD [facility]: [facility] Work Phone: Start: 09-22-2022 ambulatory Provider Pending Facili ty:[id number] Start: 09-21-2022 End: 09-21-2022 ambulatory RHEA Alvarado Work Phone: [facility] Work Phone: Start: 09-21-2022 End: 09-21-2022 Registered Recurring RHEA Alvarado Work Phone: [facility]Cancer Center Work Phone: Start: 08-11-[address] Acosta Schafer Facility:[id number] Start: 08-04-2022 End: 08-04-2022 Discharged Recurring RHEA Fraserjackie Alvarado Work Phone: [facility]-Physical Therapy [address] Start: 07-23-2022 End: 07-23-2022 ambulatory RHEA Hurley Christiano Work Phone: [facility] Work Phone: Start: 07-23-2022 End: 07-23-2022 Patient encounter procedure RHEA Johnson Christiano Work Phone: [facility] [place] Work Phone: Start: 07-16-2022 Telephone encounter Acosta Crews MD Work Phone: [facility] Work Phone: Start: 07-14-2022 Patient encounter procedure Acosta Schafer MD Work Phone: [facility] Work Phone: Start: 07-14-[address] Acosta Alva yaneli Silvis Facility:[id number] Start: 07-07-2022 AUDIT Acosta sow MD Work Phone: [facility] Work Phone: Start: 07-01-2022 ambulatory Provider Pending Facili ty:[id number] Start: 07-01-2022 End: 07-03-2022 Evaluation and management of inpatient ACOSTA SCHAFER [facility] Start: 07-01-2022 SURGNONUH, Provider: Acosta Schafer, Status: Pen, Time: 7:00 AM Natali Tyson PT, DPT Work Phone: [facility] [facility] Work Phone: Start: 07-01-2022 End: 07-03-2022 Evaluation and management of inpatient Acosta Schafer MD Work Phone: [facility] 2[facility] Ortho Tele Comment on above: 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 Merrill Rawls as [facility] Facility:[id number] Start: 06-25-2022 Encounter for other preprocedural examination Mr. Merrill Hernandez [place] [facility] Start: 06-24-2022 End: 06-29-2022 ambulatory ACOSTA SCHAFER [facility] Start: 06-24-2022 End: 06-28-2022 Subsequent hospital visit by physician Juan Mott 2 Rn [facility] Pre-Admission Testing Start: 05-18-2022 Patient encounter procedure Acosta Schafer MD Work Phone: [facility] Work Phone: Start: 05-18-[address] Acosta Subram[place]field Facility:[id number] Start: 05-07-2022 End: 05-07-2022 Patient encounter procedure RHEA Alvarado Work Phone: [facility]Electrodiagn[facility] Work Phone: Start: 04-13-2022 End: 04-13-2022 ambulatory RHEA Alvarado Work Phone: [facility] Work Phone: Start: 04-13-2022 End: 04-13-2022 Patient encounter procedure RHEA Alvarado Work Phone: [facility] [place] Start: 12-17-2021 End: 12-17-2021 Patient encounter procedure RHEA Alvarado Work Phone: [facility]Nuc [facility] [place] Start: 12-07-2021 End: 12-07-2021 Patient encounter procedure RHEA Alvarado Work Phone: [facility] [place] Start: 12-03-2021 End: 12-03-2021 Departed Referred RHEA Alvarado Work Phone: [facility] Procedures Date Procedure [...] TO MG FOR LOW K Arya Coronado TELECASTING TECHNICIAN - [facility] Work Phone: Start: 07-03-2022 Blood count complete automated Arya Coronado TELECASTING TECHNICIAN - [facility] Work Phone: Start: 07-02-2022 Dup-scan xtr veins unilateral/limited study Carlos A Hou DO Work Phone: Start: 07-02-2022 BASIC METABOLIC PANE L W/ REFLEX TO MG FOR LOW K Arya Coronado TELECASTING TECHNICIAN - [facility] Work Phone: Start: 07-02-2022 Blood count complete automated Arya Coronado TELECASTING TECHNICIAN - [facility] Work Phone: Start: 07-01-2022 Radiologic examinati on knee 1/2 views Adjyoan Coronado TELECASTING TECHNICIAN - [facility] Work Phone: Start: 07-01-2022 End: 07-01-2022 Revj total knee arthrp w/wo algrft 1 component Acosta Schaefr MD Work Phone: Start: 06-24-2022 Antibody screen [...] Start: 12-17-2021 Radionuclide three-p hase bone study TELECASTING TECHNICIANNohelia Alvarado Work Phone: Start: 12-07-2021 US scan of thyroid RHEA Alvarado Work Phone: Start: 02-01-2019 Anesthesia consultation Start: 01-24-2019 Anesthesia consultation Plan of Treatment Date Care Activity Detail Author Start: 06-29-2023 FUV, Provider: Acosta Schafer, Status: Pen, Time: 2:15 PM FUV, Provider: Acosta Schafer, Status: Pen, Time: 2:15 PM [facility] Work Phone: Start: 02-17-2023 Screening for malign ant neoplasm of colon [facility] Start: 12-29-2022 FUV, Provider: Acosta Schafer, Status: Pen, Time: 1:45 PM FUV, Provider: Acosta Schafer, Status: Pen, Time: 1:45 PM [facility] [place] Work Phone: Start: 08-11-2022 FUV, Provider: Acosta Schafer, Status: Pen, Time: 9:45 AM FUV, Provider: Acosta Schafer, Status: Pen, Time: 9:45 AM [facility] [place] Work Phone: Start: 07-23-2022 [facility] Start: 07-14-2022 POV, Provider: Acosta Schafer, Status: Pen, Time: 9:00 AM POV, Provider: Acosta Schafer, Status: Pen, Time: 9:[address] [facility] [facility] Work Phone: Start: 07-01-2022 End: 07-01-2022 Admission to same day surgery center 07/01/2022 Surgery IP Unit Acosta Schafer MD [id number] [place] [address] RIGHT KNEE RIGHT TOTAL KNEE REVISION INSTRUMENTATION ANTONELLA FEMORAL [facility] SCIATIC BLOCK [facility] OR Comment on above: RIGHT KNEE RIGHT TOT AL KNEE REVISION INSTRUMENTATION [facility] BLOCK Start: 07-01-2022 End: 07-01-2022 Revj total knee arthrp w/wo algrft 1 component KNEE TOTAL ARTHROPLASTY REVISION Loosening of unicondylar knee replacement (HCC) 07/01/2022 10:50 AM [facility] Start: 07-01-2022 Subsequent hospital visit by physician 07/01/2022 Hospital Encounter IP Unit Acosta Schafer MD [id number] [place] [address] [facility] [place] Start: 07-01-2022 [facility] Provider: Acosta Schafer, Status: Pen, Time: 7:00 AM [facility], Provider: Acosta Schafer, Status: Pen, Time: 7:[address] [facility] [place] Work Phone: Start: 06-25-2022 PREADMIT, Provider: Merrill Alejandro, Status: Pen, Time: 1:45 PM PREADMIT, Provider: Merrill Alejandro, Status: Pen, Time: 1:[address] [facility] Work Phone: Start: 06-25-2022 [id number], Provider : Natali Tyson, Status: Pen, Time: 1:00 PM [id number], Provider: Natali Tyson, Status: Pen, Time: 1:00 PM [facility] [place] Work Phone: Start: 06-24-2022 Annual Wellness Visi t (AWV) Annual Wellness Visit (AWV) [facility] [employer] Start: 12-17-2021 Radionuclide three-p hase bone study NM bone 3 phase [facility] Start: 12-17-2021 End: 12-17-2021 Patient encounter procedure Departed [facility]Nuc Med [place] Start: 12-07-2021 US scan of thyroid US thyroid [facility] Start: 12-07-2021 End: 12-07-2021 Patient encounter procedure Departed [facility] C[facility]-Ultrasound [place] Start: 11-23-2021 Influenza vaccination Flu vaccine (# 1) [facility] [employer] Start: 05-18-2021 COVID-19 Vaccine (4 - Booster for Moderna series) COVID-19 Vaccine (4 - Booster for Moderna series) [facility] [employer] Start: 02-23-2018 Screening for malign ant neoplasm of breast Breast cancer screen [facility] [employer] Start: 02-23-2018 Shingles vaccine (1 of 2) Shingles v accine (1 of 2) [facility] [employer] Start: 02-23-2013 Screening for malign ant neoplasm of colon [facility] Start: 2008 Lipid panel Lipids [facility] [employer] Start: 02-23-2003 Diabetes screen Diabetes screen [facility] Start: 02-23-1998 Screening for malign ant neoplasm of cervix [facility] Start: 02-23-1989 Screening for malign ant neoplasm of cervix Pap smear [facility] [employer] Start: 02-23-1987 DTaP/Tdap/Td vaccine (1 - Tdap) DTaP/Tdap/Td vaccine ( - Tdap) [facility] Start: 02-23-1986 Hepatitis C screening Hepatitis C sc reen [facility] Start: 02-23-1983 HIV screening HIV screen [facility] Start: 1980 Depression Screen Depression Screen [facility] [employer] Start: 1970 COVID-19 Vaccine (#1) COVID-19 Vacci ne (#1) [facility] [employer] End: 07-04-2022 Basic Metabolic Panel w/ Reflex to MG Basic Metabolic Panel w/ Reflex to MG Lab Routine Daily for 3 Days starting 07/02/2022 until 07/04/2022, 2 completed [facility] [employer] Phone: Comment on above: Daily for 3 Days sta rting 07/02/2022 until 07/04/2022, 2 completed End: 07-04-2022 CBC panel - Blood by Automated count CBC Lab Routine Daily for 3 Days starting 07/02/2022 until 07/04/2022, 2 completed [employer] [facility] [employer] Phone: Comment on above: Daily for 3 Days sta rting 07/02/2022 until 07/04/2022, 2 completed Comprehensive metabo lic 2000 panel - Serum or Plasma [facility] Comprehensive metabo lic 2000 panel - Serum or Plasma [facility] IgA [Mass/volume] in Serum or Plasma [facility] IgG [Mass/volume] in Serum or Plasma [facility] IgM [Mass/volume] in Serum or Plasma [facility] Oxygen therapy [[facility] Data Set] Initiate Oxygen Therapy Protocol Respiratory Care Routine Daily until discontinued starting 07/01/2022 [facility] [employer] Phone: Comment on above: Daily until disconti nued starting 07/01/2022 Spirometry panel Incentive tonja metry Respiratory Care Routine Every 2hr while awake until discontinued starting 07/01/2022 [facility] [employer] Phone: Comment on above: Every 2hr while awak e until discontinued starting 07/01/2022 [facility] Immunizations Immunization Date Immunization Notes Care Provider Maria T otoole 03-16-2016 influenza virus vaccine, unspecified formulation RHEA Alvarado Work Phone: [facility] 03-16-2016 influenza, injectabl e, quadrivalent, preservative free Sindy Davila Other [facility] [employer] Other Payers Date Payer Category Payer Private Health Insurance [id number] 2022 Medicaid [id number] 2022 Medicare [id number] 2022 Private Health Insurance [id number] 2022 Self-pay [id number] 2014 Private Health Insurance [id number] 1968 Unknown [id number] [id number]. 182 1968 Unknown [id number] 2.16.840.1.231023.3.579.2. 182 1968 Unknown [id number] 2.16.840.1.149645.3.579.2. 356 1968 Unknown [id number] 2.16.840.1.801679.3.579.2. 8 1968 Unknown [id number] 2.16.840.1.235620.3.579.2. 1067 1968 Unknown [id number] 2.16.840.1.633548.3.579.2. 1068 1968 Unknown [id number] 2.16.840.1.539454.3.579.2. 1067 1968 Unknown [id number] 2.16.840.1.822496.3.579.2. 1068 1968 Unknown [id number] 2.16.840.1.117824.3.579.2. 1068 1968 Unknown [id number] 2..840.1.069668.3.579.2. 1068 Medicare [id number] Medicare [place] Dual Adv JRG [id number] Unknown [facility] DUAL COMPLETE Unknown [id number] [id number]. 531 Unknown [id number] 2.16.840.1.259669.3.579.2. 531 Unknown [id number] 2.16.840.1.583198.3.579.2. 531 Unknown [id number] 2.16.840.1.217591.3.579.2. 531 Unknown [id number] 2.16.840.1.069094.3.579.2. 531 Social History Date Type Detail Facility Start: 06-03-2017 End: 09-21-2022 Tobacco smoking status NHIS Never smoked tobacco (finding) [facility] Start: 1970 Sex Assigned At Female F [facility] Start: 06-24-2022 Tobacco use and exposure Smokeless tobacco non-user [employer] Phone: Start: 06-24-2022 End: 07-02-2022 Alcohol intake Current drinker of alcohol (finding) [employer] Phone: Start: 06-24-2022 Alcohol Comment occasional BON [employer] Phone: Start: 1970 Sex Assigned At Not on file B ON [employer] Phone: Start: 06-14-2022 End: 06-24-2022 Exposure to SARS-CoV-2 (event) Not sure [employer] Phone: Sex Assigned At Sex Assigned At Merged with [facility] [employer] Other Medical Equipment Procedure Code Equipment Code Equipment Origin al Text Equipment Identifier Dates Cement Bioprep S t - [id number] Start: 07-01-2022 Stem Tib [id number] [id number] Knee Tot Stbl Joey Roberta [employer] - [id number] , [id number] FDA Start: 07-01-2022 Clinical Notes [...] of both lower extremities (ICD-10 - I87.303) [employer] Other 10-04-2023 Evaluation note* Encounter Date Diagnosis [...] Bilateral lower extremity edema (ICD-10 - R60.0) [employer] Other 04-24-2023 Consult note Author [facility]ey [facility] August 16, 2022 3:19pm Note Date/Time August 16, 2022 2:2 0pm [facility] at [address] [address] Hem/Onc Consult Note - OP Signed Patient: Geeta Shelton MR#: [id number] : 1970 Acct:[id number] Age/Sex: 52 / F Type: REG RCR Copies to: Elizabeth Alvarado APRN,CONSUMER EDUCATOR Lorrie Baig DO~ HPI Date/Time of Service: Date of Service: 08/16/2022 Time of Service: 14:19 Referring Provider/PCP: Referring Provider: Lorrie Baig DO PCP: Elizabeth Alvarado APRN, RETURNED ITEM CLERK-C - History of Present Illness Reason for Consultation: Monoclonal gammopathy of undetermined significance Chief Complaint: Patient is here today for a referral from Dr Baig for Abnormal SPEP HPI: Dear Dr. Baig, I have seen your patient in consultation and would like to thank you for the courtesy of your referral. As you know, eGeta Shelton is a 52-year-old lady with a [...] and/or blood disorder. No history of thrombosis. [facility] - Medical History Medical History: Medical [...] Additional comments: Patient: Geeta Shelton MR#: [id number] : 1970 Acct:[id number] Age/Sex: 51 / F ADM Date: 2 Loc: [place] Room: Type: [facility] Attending Dr: Tyler Villeda PA-C Copies to: CARLI Noyola Jeffrey S DO~ Ordering Provider: Tyler Villeda PA-C Date of Service: 12/17/21 [facility] bone 3 phase: M25.562, M25.561 Nuclear medicine [...] the knee hardware bilaterally. This may bepostsurgical. LA/LA bone 3 phase IMPRESSION: Intense uptake of [...] for coordination of care (as documented) and [id number] counseling of patient and/or family. Dictated By: Zoey Ramirez APRN DD/ 1419 Signed By: <Electronically signed by RHEA Ramirez> 08/16/22 1519 [facility] Work Phone: 1(448) 202-713603-11-2023 History of Present illness Narrative* oSsa Poon RN - 07/03/2022 2:01 PM EST [...] tape after removal as ordered. Patient has [facility] set up. Knee immobilizer sent with [...] Note Facility/Department: [facility] ORTHO TELE [id number] NAME: Geeta Shelton : 1970 (52 y.o.) [...] BLOCK-DEMETRIA performed by Ac[place] Schafer [place] [facility] Chart Reviewed: Yes Restrictions: Restrictions/Precautions: Fall [...] Recommendations: Continue to assess pending progress Goals Sheet Taker Goals Sheet Taker Goal 1: Bed mobility with indep Sheet Taker Goal 2: Functional transfes with indep Sheet Taker Goal 3: Amb 50ft with 2ww and indep Sheet Taker Goal 4: 4 steps with handrail and SBA Sheet Taker Goal 5: indep with HEP to improve [...] Therapy Med Surg Daily Treatment Note Facility/Department: [address] ORTHO TELE Room: [place] [address] NAME: Geeta Shelton : 1970 (52 y.o.) [...] Recommendations: Continue to assess pending progress Goals Sheet Taker Goals Nursing Home Goal 1: Bed mobility with indep Sheet Taker Goal 2: Functional transfes with indep Nursing Home Goal 3: Amb 50ft with 2ww and indep Nursing Home Goal 4: 4 steps with handrail and SBA Sheet Taker Goal 5: indep with HEP to improve LE strength and ROM Patient Goals Patient Goals : to go home PLAN General Plan: 2 times a day 7 days a week Safety Devices Type of Devices: All fall risk precautions in place, Call light within reach, Left in bed, Bed alarm in place, Nurse notified [facility] (6 CLICK) BASIC MOBILITY AM-PAC Inpatient Mobility [...] to accomplish the task * Arya Coronado, TELECASTING TECHNICIAN - CONSUMER EDUCATOR - 07/02/2022 9:49 AM EST Progress Note [...] puffs by inhalation with spacer [] Ipratropium Fishtail 0.02% unit dose by aerosol Ipratropium Fishtail MDI 2 puffs by inhalation with spacer [] Duoneb (Ipratropium + Albuterol) unit dose by aerosol Ipratropium MDI + Albuterol MDI 2 puffs byinhalation w/spacer MDI to Aerosol [] Albuterol Sulfate MDI Albuterol Sulfate 0.083% unit dose by aerosol [] Levalbuterol MDI 2 puffs by inhalation Levalbuterol 1.25 mg unit dose by aerosol [] Ipratropium Fishtail MDI by inhalation Ipratropium Fishtail 0.02% unit dose by aerosol [] Combivent (Ipratropium + Albuterol) MDI by inhalation Duoneb (Ipratropium + Albuterol) unit doseby aerosol Treatment Assessment [Frequency/Schedule]: Change frequency to: NO CHANGE per Protocol, P&T, [facility] Points 0 1 2 3 4 Pulmonary [...] (52 y.o.) CODE STATUS: Full Code Room: [place] [address] Date of Service: 07/01/2022 Patient Diagnosis(es): Loosening [...] Ambulation Assistance: Independent Transfer Assistance: Independent Active Financial Coach: Yes Mode of Transportation: Car OBJECTIVE: Orientation Status: Orientation Overall Orientation Status: Within Functional Limits Orientation Level: Oriented X4;Oriented to place;Oriented to time;Oriented to situation;Oriented toperson Observation: Observation/Palpation Posture: Good Observation: right knee incision with bandage and knee immobilizer in place Cognition Status: Cognition Overall Cognitive Status: [facility] Cognition Comment: Follows commands consistently Perception Status: Perception Overall Perceptual Status: [facility] Vision and Hearing Status: Vision Vision Exceptions: [...] 6 complexities Assistance / Modification: Mod A [facility] (Six [facility]) Self care Score How much [...] How much help for eating meals?: None [facility] Inpatient Daily Activity Raw Score: 19 AM-[facility] Inpatient ADL T-Scale Score : 40.22 ADL [...] Therapy Med Surg Initial Assessment Facility/Department: [address] TELE Room: [place] [address] NAME: Geeta Shelton : 1970 (52 y.o.) [...] Ambulation Assistance: Independent Transfer Assistance: Independent Active Financial Coach: Yes Mode of Transportation: Car OBJECTIVE: Vision [...] Goals: Patient Goals : to go home Sheet Taker Goals Sheet Taker Goal 1: Bed mobility with indep Nursing Home Goal 2: Functional transfes with indep Sheet Taker Goal 3: Amb 50ft with 2ww and indep Sheet Taker Goal 4: 4 steps with handrail and SBA Nursing Home Goal 5: indep with HEP to [...] accomplish the task documented in this encounterBON [employer] Work Phone: 1(643) 859-817903-09-2023 History of Present illness Narrative* History of [...] she will most likely do this at [facility] in [place]. * Physical exam * General: No acute [...] see dictated x-ray report * Procedure * Olympia removed Steri-Strips placed without complication * Assessment [...] grammatical areas may persist related to the Qriously software * Merrill lAejandro PA-C * [facility] Work Phone: 1(579) 671-800903-07-2023 Hospital Discharge instructions* Discharge Instructions* Arya Coronado APRN - CONSUMER EDUCATOR - 06/29/2022 11:33 AM EST Total Knee [...] remove dressing and start using instructions above Olympia will be removed on post-operative day 14 [...] Hospital Unit/Room#: W268/W268-01 Discharging Unit Phone Number: [phone] Emergency Contact: Extended Emergency Contact Information Primary Emergency Contact: kena travis Narvon Relation: Other Past Surgical History: Past Surgical History: Procedure Laterality Date JOINT REPLACEMENT Left knee PARTIAL KNEE ARTHROPLASTY Right REVISION TOTAL KNEE ARTHROPLASTY Right 07/01/2022 RIGHT KNEE RIGHT TOTAL KNEE REVISION INSTRUMENTATION ANTONELLA FEMORAL & SCIATIC BLOCK-DEMETRIA [place] by Ac[place] Schafer [place] [facility] [place] Immunization History: There is no immunization [...] Assisted Dressing Assisted Toileting Independent Feeding Independent Clinical Trial Specialist Independent Med Delivery whole Wound Care Documentation [...] applicable) Name: Address: Dialysis Schedule: Phone: Fax: Rn Internship/Head Animal Keeper signature: {Esignature:[id number]} PHYSICIAN SECTION Prognosis: {Prognosis:1254491061} Condition at Discharge: { Patient Condition:859319036} Rehab Potential (if transferring to Rehab): {Prognosis:5808534062} Recommended Labs or Other Treatments After Discharge: Physician Certification: I certify the above information and transfer of Geeta Shelton is necessary for the continuing treatment of the diagnosis listed and that she requires {[facility]} for {GREATER/LESS:645391781} 30 days. Update Admission H&P: {CHP DME Changes in HandP:124243796} PHYSICIAN SIGNATURE: {Esignature:048713085} * Attachments The following attachments cannot be sent through Care Everywhere. * Total Knee Replacement Surgery: General Info (Arabic) * Wound: VAC (Vacuum-Assisted Closure) (Arabic) [facility] [employer] Phone: [phone]) 431-632603-02-2023 History of Present illness Narrative* Sindy Pelaez RN - 06/24/2022 11:10 AM EST Yellow PAT and Dynahex instruction sheet reviewed with patient, who verbalized understanding. documented in this encounterBON [employer] Phone: evaluation noteNo assessment information available [facility] Work Phone: Evaluation note* Diagnosis Status post revision of total knee replacement, right- Primary Status post revision of total replacement of right knee Acute postoperative pain Other acute postoperative pain documented in this encounter [facility] [employer] Phone: evalgsfokx note* Diagnosis Onset Date Resolution Status MGUS (monoclonal gammopathy of unknown significance) acute Microcytosis acute Peripheral neuropathy acute [facility] Work Phone: Evaluation note* Diagnosis Onset Date Resolution Status MGUS (monoclonal gammopathy of unknown significance) acute Microcytosis acute Peripheral neuropathy acute MGUS (monoclonal gammopathy of unknown significance) [facility] Work Phone: History general Narrative - Reported* Type Description Date Medical History asthma Medical History snoring Medical History Allergic Rhinitis Medical History Essential Hypertension Surgical History Revise/Replace left knee joint Surgical History Varicose Veins 2010 Surgical History Right ankle surgery Hospitalization History See above INNFOCUS Other History of Present illness Narrative* New [...] grammatical areas may persist related to the Wikipixelon software * Acosta Schafer MD * Senior Attending Physician * [facility] * [facility] * [facility] Work Phone: History of Present [...] grammatical areas may persist related to the Qriously software * Acosta Schafer MD * Senior Attending Physician * [facility] * [facility] [place] * . [facility] Work Phone: History of Present [...] will be re-assessed and goals updated. [facility] Work Phone: History of Present illness Narrative* [...] will be re-assessed and goals updated. [facility] Work Phone: History of Present illness Narrative* [...] grammatical areas may persist related to the Wikipixelon software * Acosta Schafer MD * Senior Attending Physician * [facility] * [facility] Work Phone: History of Present [...] grammatical areas may persist related to the Wikipixelon software * Merrill Alejandro PA-C * [facility] Work Phone: Progress note Author Krzysztof Salazar [facility] September 21, 2022 9:52am Note Date/Time September 21, 2022 9:49a m [facility] at [address] [address] Hem/Onc Follow Up Note - OP Signed Patient: Geeta Shelton MR#: [id number] : 1970 Acct:[id number] Age/Sex: 52 / F Type: REG RCR Copies to: Elizabeth Alvarado APRN,CONSUMER EDUCATOR Lorrie Baig,DO~ Date of Service: 09/21/2022 Time [...] concerns at this time. HPI: Dear Dr. Bagi, I have seen your patient in consultation [...] for coordination of care (as documented) and [id number] counseling of patient and/or family. [facility] - Medical History Medical History: Medical [...] by Krzysztof Salazar II, DO> 09/21/22 0952 [facility] Work Phone: Reason for visit Narrative* Initial Evaluation, Pre-Op . * [facility]fer [facility] Work Phone: Reason for visit Narrative* Initial Evaluation, Pre-Op . * Referred by: Dr. Acosta Schafer [facility] Work Phone: Summary Purpose Family [...] replacement of right knee Born, Arya Harry, TELECASTING TECHNICIAN - CONSUMER EDUCATOR [address] [place] [address] Referral ID Status Reason Start Date Expiration Date V isits Requested Visits Authorized [id number] [facility] Required 07/01/2022 07/01/2023 1 1 Question Answer I certify that I, or a nurse practitioner or physician assistant site manager working with me, had an in-person encounter with the patient and the reason for the home care services is documented in the clinical note on: 07/01/2022 Will the referring provider be the attending provider for home health? [place] of attending provider for home health Dr. [...] section and content) DATE CREATED AUTHOR [facility]/01/2019 [facility] DATE CREATED AUTHOR AUTHOR'S ORGANIZ ATION [facility] DATE CREATED AUTHOR AUTHOR'S ORGANIZ ATION 07/08/2022 [facility] DATE CREATED AUTHOR AUTHOR'S ORGANIZ ATION 12/30/2022 [employer] DATE CREATED AUTHOR AUTHOR'S ORGANIZ ATION 01/09/2023 [facility] DATE CREATED AUTHOR AUTHOR'S ORGANIZ ATION 02/19/2024 [facility] y[facility] Care Teams (unrecognized sec tion and content) Team Status: Active Member Role Status Dates Elizabeth Alvarado APRN RETURNED ITEM CLERK-C Primary Care Provide r Active Team Status: Inactive Member Role Status Dates Elizabeth Alvarado APRN RETURNED ITEM CLERKInés Primar y Care Provider, Attending Provider Active Team Status: Inactive Member Role Status Dates Elizabeth Alvarado APRN RETURNED ITEM CLERK-C Primary Care Provide r Active Lorrie Baig DO Attending Provider Active Team Status: Inactive Member Role Status Dates Elizabeth Alvarado APRN RETURNED ITEM CLERK-C Primary Care Provide r Active KEN CavazosC Attending Provider Active Team Status: Inactive Member Role Status Dates Elizabeth Alvarado APRN RETURNED ITEM CLERK-C Attending Provider A ctive Services [facility] Primary Care Provider Active Web Services Developer Relationship Specialty Start Date End Date Elizabeth Alvarado PCP - General 07/01/22 Team Status: Active Member Role Status Dates Elizabeth Alvarado APRN RETURNED ITEM CLERK-C Primary Care Provide r Active Zoey Ramirez APRN Attending Provider Active Lorrie Baig DO Referring Provider Active Team Status: Inactive Member Role Status Dates Elizabeth Alvarado APRN RETURNED ITEM CLERK-C Primary Care Provide r Active Acosta Schafer Attending Provider Active Team Status: Inactive Member Role Status Dates Elizabeth Alvarado APRN RETURNED ITEM CLERK-C Primary Care Provide r Active Sindy Davila RETURNED ITEM CLERK-C Attending Provider Active Team Status: Inactive Member Role Status Dates Elizabeth Alvarado APRN RETURNED ITEM CLERK-C Attending Provider A ctive Start: August 24, 2023 End: August 24, 2023 Team Status: Active Member Role Status Dates PHYSICIAN NO FAMILY Primary Care Provider Active Team Status: Inactive Member Role Status Dates Elizabeth Alvarado APRN RETURNED ITEM CLERK-C Attending Provider A ctive Start: September 07, 2023 End: September 07, 2023 PHYSICIAN NO FAMILY Primary Care Provider Active Start: September 07, 2023 End: September 07, 2023 Team Status: Active Member Role Status Dates Elizabeth Alvarado APRN RETURNED ITEM CLERK-C Primary Care Provide r Active Start: September 30, 2023 Zoey Ramirez APRN Active Start: September 30, 2023 Lorrie Baig DO Referring Provider Active Sta rt: September 30, 2023 Krzysztof Salazar II, DO Attending Provider Active Start: September 30, 2023 Team Status: Inactive Member Role Status Dates Elizabeth Alvarado APRN RETURNED ITEM CLERK-C Primary Care Provide r Active Start: September [...] 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 SC REVJ TOTAL KNEE ARTHRP W/WO ALGRFT 1 COMPONENT SC REVJ TOT KNEE ARTHRP FEM&ENTIRE TIBIAL COMPONE RIGHT KNEE RIGHT TOTAL KNEE REVISION INSTRUMENTATION ANTONELLA FEMORAL & SCIATIC BLOCK Acosta Schafer MD [address] [place] [address] [facility] [address] [place] [address] Referral ID Status Reason Start Date Expiration Date Visits Re quested Visits Authorized [id number] 1 1 Ordered Prescriptions (unrec ognized section [...] Poon RN) 811 (Given - Provider: Sosa Poon RN) oxyCODONE [...] Stefany Valdes RN - Reason: Patient/family refused) 0813 [...] at 250 mL/hr, Administer over 60 Minutes, LOAN CLOSER TO O.R., On Renee 07/01/22 at 0845, For 1 dose, Pre-op (day of surgery) 1018 (New Bag - Provider: Rodoflo Chacko RN - Comment: per to start)1118 [...] (NoRateChange - Provider: Yang Mccollum APRN - MERCURY WASHER)1311 (Anesthesia Volume Adjustment - Provider: Yang Mccollum [...] BE BASED ON THE PRIMARY CLINICAL RECORDS. [employer] provides no warranty or guarantee of the accuracy or completeness of information in this document.
[2024-05-30 09:20] VITALS: BMI 42.2
--- NOTE | 2024-05-30 09:20 | V.VEINS.HP ---
Vital Signs 05/30/24 09:20 Height 5 ft 5 in Weight 115 kg BMI 42.2 Varicose Veins Patient in today for follow up ultrasound of left lower extremity following EVLT of left SSV completed on 05/23/24. Flo Oshea MD personally performed the services described in this documentation, as scribed by Ann Jack RDMS in my presence and it is both accurate and complete. Ann Oshea RDMS, am scribing for, and in the presence of, Dr. Flo Ta and in the presence of the patient. thigh: bilateral (symptoms left leg > right leg), knee: bilateral, calf: bilateral, ankle: bilateral and paz: bilateral aching, burning and cramping 9 10 years Worsened in recent months: Yes standing and sitting analgesics, elevating extremities and compression stockings Reports muscle spasms of leg, heaviness, limb pain, edema and leg edema History of lower extremity trauma: No Superficial thrombophlebitis: No Family history of varicose veins: no Has patient had previous lower extremity venous surgery: Yes Patient has previously received the following treatment(s) for lower extremity varicose veins: Reports laser therapy Does patient have a history of : yes Does patient intend to have future pregnancies: no Has patient had lower extremity venous scan with relux testing: No Support hose used: Yes Problems walking or doing physical activity: Yes How does it affect you: decreased asctivity secondary to pain Do you walk much: Yes Do you stand much: Yes Review of Systems ROS Narrative Flo Oshea MD personally performed the services described in this documentation, as scribed by Ann Jack RDMS in my presence and it is both accurate and complete. Ann Oshea RDMS, am scribing for, and in the presence of, Dr. Flo Ta and in the presence of the patient. Status of ROS 10 or more systems reviewed and unremarkable except as noted in history and below Cardiovascular Reports: edema Integumentary/Breast Reports: itching, redness and changes in skin color Neurological Reports: weakness in extremities [facility] Medical History (Updated 04/04/24 @ 14:40 by Torres Man) Superficial thrombophlebitis of left leg ?I80.02 - Phlebitis and thrombophlebitis of superficial vessels of left lower extremity (ICD-10) Phlebitis of superficial vein of right lower extremity ?I80.01 - Phlebitis and thrombophlebitis of superficial vessels of right lower extremity (ICD-10) Obesity ?E66.9 - Obesity, unspecified (ICD-10) Asthma ?J45.909 - Unspecified asthma, uncomplicated (ICD-10) Pain due to varicose veins of both lower extremities ?I83.813 - Varicose veins of bilateral lower extremities with pain (ICD-10) Surgical History (Updated 05/23/24 @ 08:38 by Torres Man) Status post laser ablation of incompetent vein ?Z98.890 - Other specified postprocedural states (ICD-10) H/O tubal ligation ?Z98.51 - Tubal ligation status (ICD-10) History of bilateral knee replacement ?Z96.653 - Presence of artificial knee joint, bilateral (ICD-10) Status post laser ablation of incompetent vein ?Z98.890 - Other specified postprocedural states (ICD-10) Social History Little interest or pleasure in doing things: not at all Feeling down, depressed, or hopeless: not at all Meds Home Medications and Allergies Home Medications ?Medication ?Instructions ?Recorded ?Confirmed ?Type albuterol sulfate 90 mcg/actuation inhalation 03/02/24 History aerosol inhaler ammonium lactate 12 % topical cream applic topical 03/02/24 History celecoxib 50 mg capsule (Celebrex) 50 mg PO DAILY 04/04/24 04/04/24 History gabapentin 100 mg capsule 100 mg PO BID 04/04/24 04/04/24 History ropinirole 0.5 mg tablet 0.5 mg PO DAILY 04/04/24 04/04/24 History Allergies Allergy/AdvReac Type Severity Reaction Status Date / Time Penicillins AdvReac Severe Anaphylaxis Verified 12/12/23 17:11 Exam Narrative Exam Narrative: IFlo MD personally performed the services described in this documentation, as scribed by Ann Jack RDMS in my presence and it is both accurate and complete. I, Ann Jack RDMS, am scribing for, and in the presence of, Dr. Flo Ta and in the presence of the patient. Constitutional Documenting provider has reviewed patient's vital signs: yes Common normals: oriented x3 Nutritional appearance: overweight Cardio Peripheral pulses: posterior tibial pulses present and dorsalis pedis pulses present Extremity Common normals: normal capillary refill General: calf tenderness and edema Right lower extremity: lower leg Right lower leg: inspection and palpation Left lower extremity: lower leg Left lower leg: inspection and palpation Neuro Common normals: oriented x3 Results Imaging Venous US: Radiologist's impression: Heat induced thrombus in left SSV 3.0 cm from SPJ and extends to distal lower leg. Thickened left Achilles tendon noted. Flo Oseha MD personally performed the services described in this documentation, as scribed by Ann Jack RDMS in my presence and it is both accurate and complete. Ann Oshea RDMS, am scribing for, and in the presence of, Dr. Flo Ta and in the presence of the patient. Assessment and Plan Assessment and Plan (1) Superficial thrombophlebitis of left leg: Plan Plan is for patient to return for EVLT of right AASV. Flo Oshea MD personally performed the services described in this documentation, as scribed by Ann Jack RDMS in my presence and it is both accurate and complete. Ann Oshea RDMS am scribing for, and in the presence of, Dr. Flo aT and in the presence of the patient.
--- NOTE | 2024-05-30 09:30 | W.VEIN ---
Discharge Plan Discharge Disposition: Home, Self-Care Outpatient Diagnostics: VC Endovenous Ablation 1VeinRT (Routine) Timeframe: 2 Weeks Facility: [facility] - Location: [facility] Center Ordered By: Flo Ta Plan of Treatment: EVLT of right AASV Print Language: Kazakh Discharge Date/Time: 05/30/24 09:31
== END 2024-05-30 09:31 | disposition home or self-care (01) ==
PROVIDERS: PCP Radiology Diagnostic Radiology; Visit Provider Radiology Diagnostic Radiology
DX: I80.02 Phlebitis and thrombophlebitis of superficial vessels of left lower extremity (principal)
CPT/HCPCS: 93971; G0463

== ENCOUNTER 2024-06-02 11:54 | Inpatient (IN) | payer MEDICARE, OTHER, MEDICAID, SELFPAY ==
[2024-06-02] VITALS (14 sets, daily range): BP systolic 114–172; BP diastolic 68–90; PULSE 80–104; TEMP 36.4–37.4; O2SAT 93–98; BMI 34.9; BMI 43.9
--- OUTSIDE RECORDS SUMMARY | 2024-06-02 12:02 | XMS_ITS | CCD ---
Author Organization [facility] Care Team Providers Care Special Procedures Nurse Name Role Phone RHEA Alvarado Attending Provider [facility], Services Primary Care Provider [phone] RHEA Alvarado Primary Care Provide r CARLI Villeda Attending Provider [phone] RHEA Alvarado Primary Care Provide r CARLI [...] Care Provide r Acosta Schafer Attending Provider [phone] RHEA Ramirez Attending Provider DO Lorrie Baig [...] Dr. Acosta Tyson Attending Un available Myerholpaula, STONE FABRICATOR Elizabeth Hurley Primary Care Provide r Myersaige, STONE FABRICATOR Elizabeth K Attending Provider Sindy Davila Unavailable MARII Davila Attending Provider Tyler Jean Unavailable MyerRHEA moulton K Primary Care Provide r MARII Davila Attending Provider MyerPINKY moultonN Elizabeth K Attending Provider MyRHEA morales Attending Provider NO FAMILY, PHYSICIAN Primary Care Provider Unava ilable Myersaige, RHEA Johnson K Primary Care Provide r DO Lorrie Baig Referring Provider [phone] Adamowicz II, DO Krzysztof Prince Attending [...] Ibuprofen Drug Allergy 4 Unknown Reaction [facility] Penicillins (antibiotic) (2 sources) Penicillin Drug Allergy 4 [facility] (20 sources) Penicillins; Translations: [Penicillins] Allergy to substance 8 Anaphylaxis [facility] (6 sources) Ibuprofen; Translations: [ibuprofen] Drug Allergy 3 Unknown Reaction [facility] (3 sources) Penicillin V Drug Allergy 3 [facility] (1 source) Penicillin Drug Allergy 4 [facility] Repository Medications Current Medications Medication Drug Class(es) Dates Sig (Normalized) Sig (Original) acetaminophen 325 mg oral tablet (2 sources) Start: 07-01-2022 acetaminophen (TYLENOL) tablet 650 mg Start: 07-01-2022 End: 07-01-2022 acetaminophen (TYLENOL) tabl et 1,000 mg [id number] 200 actuat albuterol 0.09 mg/actuat metered dose [...] Active docusate sodium 50 mg / sennosides, mcfp 8.6 mg oral tablet (2 sources) Start: [...] disintegrating tablet 4 mg polyethylene glycol 3350 25249 mg powder for oral solution (1 source) [...] break. Start: 12-03-2021 take 1 capsule by [facility] once daily venlafaxine (EFFEXOR XR) 75 [...] [Catalytic activity/Vol] 33 U/L Normal 7-52 [facility] Comment on above: Performed By: #### F ER, CMP, CBC, FE and TIBC #### [facility] [address] [place], [place] [id number] [facility] #### TOMA SERUM, SPE, KAPPA #### [facility] , Albumin [Mass/volume] in Ser um or PlasmaOrdered By: Krzysztof Salazar on 09-20-2023 Albumin [Mass/Vol] 3.8 g/dL Normal 2.9-4.4 [facility] Comment on above: Performed By: #### F ER, CMP, CBC, FE and TIBC #### [facility] [address] [place] [address] #### TOMA SERUM, SPE, KAPPA #### [facility] , Albumin [Mass/volume] in Ser um or Plasma by Bromocresol green (BCG) dye binding methoOrdered By: Krzysztof Salazar on 09-20-2023 Albumin BCG dye [Mass/Vol] 4.2 g/dL 3.5-5.7 [facility] Alkaline phosphatase [Enzyma tic activity/volume] in Serum or PlasmaOrdered By: Krzysztof Salazar on 09-20-2023 ALP [Catalytic activity/Vol] 79 U/L Normal 34-104 [facility] Comment on above: Performed By: #### F ER, CMP, CBC, FE and TIBC #### [facility] [address] [place] [address] #### TOMA SERUM, SPE, KAPPA #### [facility] , Aspartate aminotransferase [ Enzymatic activity/volume] in Serum or PlasmaOrdered By: Krzysztof Salazar on 09-20-2023 AST [Catalytic activity/Vol] 30 U/L Normal 13-39 [facility] Comment on above: Performed By: #### F ER, CMP, CBC, FE and TIBC #### [facility] [address] [place] [address] #### TOMA SERUM, SPE, KAPPA #### [facility] , Automated basophil %Ordered By: Krzysztof Salazar on 09-20-2023 Basophils/100 WBC (Bld) 0.5 % Normal . [facility] Comment on above: Performed By: #### F ER, CMP, CBC, FE and TIBC #### [facility] [address] [place] [address] #### TOMA SERUM, SPE, KAPPA #### [facility] , Automated basophil countOrde red By: Krzysztof Salazar on 09-20-2023 Basophils (Bld) [#/Vol] 0.0 10*3/uL Normal 0.0-0.2 [facility] Comment on above: Result Comment: PERF ORMED BY: [place] [address] PATHOLOGIST COMPRESSOR ENGINEER MELODY ELAM M.D. Performed By: #### F ER, CMP, CBC, FE and TIBC #### [address] #### TOMA SERUM, SPE, KAPPA #### [facility] , Automated blood monocyte cou ntOrdered By: Krzysztof Salazar on 09-20-2023 Monocytes (Bld) [#/Vol] 0.7 10*3/uL Normal 0.0-0.8 [facility] Comment on above: Performed By: #### F ER, CMP, CBC, FE and TIBC #### [address] #### TOMA SERUM, SPE, KAPPA #### [facility] , Automated eosinophil %Ordere d By: Krzysztof Salazar on 09-20-2023 Eosinophils/100 WBC (Bld) 2.6 % Normal . [facility] Comment on above: Performed By: #### F ER, CMP, CBC, FE and TIBC #### [place] [address] [place] #### TOMA SERUM, SPE, KAPPA #### [facility] , Automated eosinophil countOr dered By: Krzysztof Salazar on 09-20-2023 Eosinophils (Bld) [#/Vol] 0.2 10*3/uL Normal 0.0-0.45 [facility] Comment on above: Performed By: #### F ER, CMP, CBC, FE and TIBC #### [facility] [address] [place] [address] [place] #### TOMA SERUM, SPE, KAPPA #### [facility] , Automated monocyte %Ordered By: Krzysztof Salazar on 09-20-2023 Monocytes/100 WBC (Bld) 7.9 % Normal . [facility] Comment on above: Performed By: #### F ER, CMP, CBC, FE and TIBC #### [place] [address] [place] #### TOMA SERUM, SPE, KAPPA #### [facility] , Automated neutrophil %Ordere d By: Krzysztof Salazar on 09-20-2023 Neutrophils/100 WBC (Bld) 64.3 % Normal . [facility] Comment on above: Performed By: #### F ER, CMP, CBC, FE and TIBC #### [address] #### TOMA SERUM, SPE, KAPPA #### [facility] , Bilirubin.total [Mass/volume ] in Serum or PlasmaOrdered By: Krzysztof Salazar on 09-20-2023 Bilirubin [Mass/Vol] 0.6 mg/dL Normal 0.3-1.0 [facility] Comment on above: Performed By: #### F ER, CMP, CBC, FE and TIBC #### [address] #### TOMA SERUM, SPE, KAPPA #### [facility] , Calcium [Mass/volume] in Ser um or PlasmaOrdered By: Krzysztof Salazar on 09-20-2023 Calcium [Mass/Vol] 9.7 mg/dL Normal 8.6-10.3 [facility] Comment on above: Performed By: #### F ER, CMP, CBC, FE and TIBC #### [place] [address] [place] #### TOMA SERUM, SPE, KAPPA #### [facility] , Carbon dioxide, total [Moles /volume] in Serum or PlasmaOrdered By: Krzysztof Salazar on 09-20-2023 CO2 [Moles/Vol] 32.4 mmol/L High 21.0-31.0 [facility] Comment on above: Performed By: #### F ER, CMP, CBC, FE and TIBC #### [place] [address] [place] #### TOMA SERUM, SPE, KAPPA #### [facility] , Chloride [Moles/volume] in S hugo or PlasmaOrdered By: Krzysztof Salazar on 09-20-2023 Chloride [Moles/Vol] 97 mmol/L Low 98-107 [facility] Comment on above: Performed By: #### F ER, CMP, CBC, FE and TIBC #### [facility] [address] [place] [address] [place] #### TOMA SERUM, SPE, KAPPA #### [facility] , Complete Blood Count Auto Di ffon 09-20-2023 Mean Corpuscular HGB Conc 32.7 g/dL Normal 32.0-35.0 [facility] Comment on above: Performed By: #### F ER, CMP, CBC, FE and TIBC #### [facility] [address] [place] [address] #### TOMA SERUM, SPE, KAPPA #### [facility] , NRBC% 0.1 /100{WBC} Normal 0-0.5 [facility] Comment on above: Performed By: #### F ER, CMP, CBC, FE and TIBC #### [facility] [address] [place] [address] [place] #### TOMA SERUM, SPE, KAPPA #### [facility] , Comprehensive Metabolic Pane gretel 09-20-2023 Albumin [Mass/Vol] 4.2 g/dL Normal 3.5-5.7 [facility] Comment on above: Performed By: #### F ER, CMP, CBC, FE and TIBC #### [facility] [address] [place] [address] [place] #### TOMA SERUM, SPE, KAPPA #### [facility] , Creatinine Clr Calc Pharmacy 143.32 Normal [facility] Comment on above: Performed By: #### F ER, CMP, CBC, FE and TIBC #### [facility] [address] [place] [address] [place] #### TOMA SERUM, SPE, KAPPA #### [facility] , GFR/1.73 sq M.predicted MDRD (S/P/Bld) [Vol rate/Area] mL/min/{1.73_m2} Normal [facility] Comment on above: Performed By: #### F ER, CMP, CBC, FE and TIBC #### [place] [address] [place] #### TOMA SERUM, SPE, KAPPA #### [facility] , Creatinine [Mass/volume] in Serum or PlasmaOrdered By: Krzysztof Salazar on 09-20-2023 Creatinine [Mass/Vol] 0.60 mg/dL Normal 0.60-1.[address] [facility] Comment on above: Performed By: #### F ER, CMP, CBC, FE and TIBC #### [address] #### TOMA SERUM, SPE, KAPPA #### [facility] , Erythrocyte distribution wid th [Ratio] by Automated countOrdered By: Krzysztof Salazar on 09-20-2023 Erythrocyte distribution width (RBC) [Ratio] 16.7 % High 11.9-15.3 [facility] Comment on above: Performed By: #### F ER, CMP, CBC, FE and TIBC #### [place] [address] [place] #### TOMA SERUM, SPE, KAPPA #### [facility] , Erythrocytes [#/volume] in B lood by Automated countOrdered By: Krzysztof Salazar on 09-20-2023 RBC (Bld) [#/Vol] 4.86 10*6/uL Normal 3.60-5.00 [facility] Comment on above: Performed By: #### F ER, CMP, CBC, FE and TIBC #### [place] [address] [place] #### TOMA SERUM, SPE, KAPPA #### [facility] , Ferritin [Mass/volume] in Se rum or PlasmaOrdered By: Krzysztof Salazar on 09-20-2023 Ferritin [Mass/Vol] 92.7 ng/mL Normal 11.0-306.8 [facility] Comment on above: Result Comment: PERF ORMED BY: [place] [address] PATHOLOGIST COMPRESSOR ENGINEER MELODY ELAM M.D. Performed By: #### F ER, CMP, CBC, FE and TIBC #### [address] #### TOMA SERUM, SPE, KAPPA #### [facility] , Free K+L LT Chains, Qn, Son 09-20-2023 Free [place] Light Chains, S 30.9 mg/L High 3.3-19.4 [facility] Comment on above: Performed By: #### F ER, CMP, CBC, FE and TIBC #### [facility] [address] [place] [address] #### TOMA SERUM, SPE, KAPPA #### [facility] , Free [place] Light Chains, S 26.4 mg/L High 5.7-26.3 [facility] Comment on above: Performed By: #### F ER, CMP, CBC, FE and TIBC #### [place] [address] [place] #### TOMA SERUM, SPE, KAPPA #### [facility] , [place]/Lambda Ratio, S 1.17 Normal 0.26-1.65 [facility] Comment on above: Result Comment: Perf ormed at: - [facility] [address] [id number] Textile Machine Mechanic: Jeyson Duncan PhD, Phone: [phone] PERFORMED BY: [place] [address] PATHOLOGIST COMPRESSOR ENGINEER MELODY ELAM M.D. Performed By: #### F ER, CMP, CBC, FE and TIBC #### [address] #### TOMA SERUM, SPE, KAPPA #### [facility] , Glucose [Mass/volume] in Ser um or PlasmaOrdered By: Krzysztof Salazar on 09-20-2023 Glucose [Mass/Vol] 123 mg/dL High 70-100 [facility] Comment on above: ADA recommended refe rence rangeRandom Glucose Reference Range is dependent on time and content of last meal. Glucose of more than 200 mg/dL in a nonstressed, ambulatory subject supports the diagnosis of Diabetes Mellitus. Result Comment: [place] om Glucose Reference Range is dependent on time and content of last meal. Glucose of more than 200 mg/dL in a nonstressed, ambulatory subject supports the diagnosis of Diabetes Mellitus. ADA recommended reference range Performed By: #### F ER, CMP, CBC, FE and TIBC #### [address] #### TOMA SERUM, SPE, KAPPA #### [facility] , Hematocrit [Volume Fraction] of Blood by Automated countOrdered By: Krzysztof Salazar on 09-20-2023 Hematocrit (Bld) [Volume fraction] 38.3 % Normal 34.0-46.4 [facility] Comment on above: Performed By: #### F ER, CMP, CBC, FE and TIBC #### [place] [address] [place] #### TOMA SERUM, SPE, KAPPA #### [facility] , Hemoglobin [Mass/volume] in BloodOrdered By: Krzysztof Salazar on 09-20-2023 Hemoglobin (Bld) [Mass/Vol] 12.5 g/dL Normal 11.8-15.4 [facility] Comment on above: Performed By: #### F ER, CMP, CBC, FE and TIBC #### [address] #### TOMA SERUM, SPE, KAPPA #### [facility] , IgA [Mass/volume] in Serum o r PlasmaOrdered By: Krzysztof Salazar on 09-20-2023 IgA [Mass/Vol] 409 mg/dL 87-352 [facility] IgG [Mass/volume] in Serum o r PlasmaOrdered By: Krzysztof Salazar on 09-20-2023 IgG [Mass/Vol] 1704 mg/dL [phone] [facility] IgM [Mass/volume] in Serum o r PlasmaOrdered By: Krzysztof Salazar on 09-20-2023 IgM [Mass/Vol] 122 mg/dL 26-217 [facility] Comment on above: Performed at: [facility] [address] [id number] Director: Jeyson Duncan PhD, Phone: [phone] Immunofixation,Serumon 09-19 Immunofixation, Serum Normal . [facility] Comment on above: Result Comment: No m onoclonality detected. Performed By: #### F ER, CMP, CBC, FE and TIBC #### [facility] [address] [place] [address] #### TOMA SERUM, SPE, KAPPA #### [facility] , Immunoglobulin A, Serum 409 mg/dL High 87-352 [facility] Comment on above: Performed By: #### F ER, CMP, CBC, FE and TIBC #### [facility] [address] [place] [address] [place] #### TOMA SERUM, SPE, KAPPA #### [facility] , Immunoglobulin G 1704 mg/dL High [phone] [facility] Comment on above: Performed By: #### F ER, CMP, CBC, FE and TIBC #### [facility] [address] [place] [address] [place] #### TOMA SERUM, SPE, KAPPA #### [facility] , Immunoglobulin M, Serum 122 mg/dL Normal -217 [facility] Comment on above: Result Comment: Perf ormed at: [facility] [address] [place], [place] [id number] Textile Machine Mechanic: Jeyson Duncan PhD, Phone: [phone] Performed By: #### F ER, CMP, CBC, FE and TIBC #### [facility] [address] [place] [address] #### TOMA SERUM, SPE, KAPPA #### [facility] , Immunoglobulin light chains. kappa.free [Mass/volume] in SerumOrdered By: Krzysztof Salazar on 09-20-2023 Immunoglobulin light chains.kappa.free (S) [Mass/Vol] 30.9 mg/L 3.3-19.4 [facility] Immunoglobulin light chains. kappa.free/Immunoglobulin light chains.lambda.free [MassOrdered By: Krzysztof Salazar on 09-20-2023 Immunoglobulin light chains.kappa.free/Immuno globulin light chains.lambda.free (S) [Mass ratio] 1.17 0.26-1.65 [facility] Comment on above: Performed at: [address] [id number] Director: Jeyson Duncan PhD, Phone: [phone] Immunoglobulin light chains. lambda.free [Mass/volume] in Serum or PlasmaOrdered By: Krzysztof Salazar on 09-20-2023 Immunoglobulin light chains.lambda.free [Mass/Vol] 26.4 mg/L 5.7-26.3 [facility] Iron [Mass/volume] in Serum or PlasmaOrdered By: Krzysztof Salazar on 09-20-2023 Iron [Mass/Vol] 74 ug/dL Normal 50-212 [facility] Comment on above: Performed By: #### F ER, CMP, CBC, FE and TIBC #### [facility] [address] [place] [address] [place] #### TOMA SERUM, SPE, KAPPA #### [facility] , Iron and TIBC Profileon 08-24 % Iron Saturation 21.5 % Normal 20-50 [facility] Comment on above: Performed By: #### F ER, CMP, CBC, FE and TIBC #### [facility] [address] [place] [address] [place] #### TOMA SERUM, SPE, KAPPA #### [facility] , Total Iron Binding Capacity 344 ug/dL Normal 255-450 [facility] Comment on above: Performed By: #### F ER, CMP, CBC, FE and TIBC #### [facility] [address] [place] [address] [place] #### TOMA SERUM, SPE, KAPPA #### [facility] , Iron binding capacity [Mass/ volume] in Serum or PlasmaOrdered By: Krzysztof Salazar on 09-20-2023 Iron binding capacity [Mass/Vol] 344 ug/dL 255-450 [facility] Iron saturation [Mass Fracti on] in Serum or PlasmaOrdered By: Krzysztof Salazar on 09-20-2023 Iron saturation [Mass fraction] 21.5 % 20-50 [facility] Leukocytes [#/volume] correc silverio for nucleated erythrocytes in Blood by Automated counOrdered By: Krzysztof Salazar on 09-20-2023 WBC corrected for nucl RBC Auto (Bld) [#/Vol] 8.5 10*3/uL 3.8-11.6 [facility] Leukocytes [#/volume] in Blo od by Automated countOrdered By: Krzysztof Salazar on 09-20-2023 WBC (Bld) [#/Vol] 8.5 10*3/uL Normal 3.8-11.6 [facility] Comment on above: Performed By: #### F ER, CMP, CBC, FE and TIBC #### [facility] [address] [place] [address] [place] #### TOMA SERUM, SPE, KAPPA #### [facility] , Lymphocytes [#/volume] in Bl ood by Automated countOrdered By: Krzysztof Salazar on 09-20-2023 Lymphocytes (Bld) [#/Vol] 2.1 10*3/uL Normal 1.00-4.8 [facility] Comment on above: Performed By: #### F ER, CMP, CBC, FE and TIBC #### [place] [address] [place] #### TOMA SERUM, SPE, KAPPA #### [facility] , Lymphocytes/100 leukocytes i n Blood by Automated countOrdered By: Krzysztof Salazar on 09-20-2023 Lymphocytes/100 WBC (Bld) 24.7 % Normal . [facility] Comment on above: Performed By: #### F ER, CMP, CBC, FE and TIBC #### [place] [address] [place] #### TOMA SERUM, SPE, KAPPA #### [facility] , MCH [Entitic mass] by Automa silverio countOrdered By: Krzysztof Salazar on 09-20-2023 MCH (RBC) [Entitic mass] 25.8 pg Normal 24.7-34.3 [facility] Comment on above: Performed By: #### F ER, CMP, CBC, FE and TIBC #### [address] #### TOMA SERUM, SPE, KAPPA #### [facility] , MCHC Auto (RBC) [Mass/Vol]Or dered By: Krzysztof Salazar on 09-20-2023 MCHC (RBC) [Mass/Vol] 32.7 g/dL 32.0-35.[address] [facility] MCV [Entitic volume] by Auto mated countOrdered By: Krzysztof Salazar on 09-20-2023 MCV (RBC) [Entitic vol] 78.7 fL Low 80-100 [facility] Comment on above: Performed By: #### F ER, CMP, CBC, FE and TIBC #### [place] [address] [place] #### TOMA SERUM, SPE, KAPPA #### [facility] , Neutrophils [#/volume] in Bl ood by Automated countOrdered By: Krzysztof Salazar on 09-20-2023 Neutrophils (Bld) [#/Vol] 5.5 10*3/uL Normal 1.8-7.7 [facility] Comment on above: Performed By: #### F ER, CMP, CBC, FE and TIBC #### [facility] [address] [place] [address] [place] #### TOMA SERUM, SPE, KAPPA #### [facility] , No Panel InformationOrdered By: Krzysztof Salazar on 09-20-2023 Estimated GFR (CKD-EPI) > 60.0 mL/Min [facility] Creatinine Clearance (Chem 143.32 [facility] Protein Electrophoresis M-Antwan Not observed g/dL Not Observed [facility] Protein Electrophoresis Note See comment . [facility] Comment on above: Protein electrophore sis scan will follow via computer,mail, or induction coordination power engineer delivery. Serum Immunofixation See comment . [facility] Comment on above: No monoclonality det ected. Nucleated erythrocytes [Pres ence] in Blood by Automated countOrdered By: Krzysztof Salazar on 09-20-2023 Nucleated RBC Auto Ql (Bld) 0.1 /100{WBC} 0-0.5 [facility] Platelet mean volume [Entiti c volume] in Blood by Automated countOrdered By: Krzysztof Salazar on 09-20-2023 Platelet mean volume (Bld) [Entitic vol] 8.8 fL Normal 6.3-10.7 [facility] Comment on above: Performed By: #### F ER, CMP, CBC, FE and TIBC #### [facility] [address] [place] [address] [place] #### TOMA SERUM, SPE, KAPPA #### [facility] , Platelets [#/volume] in Bloo d by Automated countOrdered By: Krzysztof Salazar on 09-20-2023 Platelets (Bld) [#/Vol] 271 10*3/uL Normal 150-450 [facility] Comment on above: Performed By: #### F ER, CMP, CBC, FE and TIBC #### [facility] [address] [place] [address] [place] #### TOMA SERUM, SPE, KAPPA #### [facility] , Potassium [Moles/volume] in Serum or PlasmaOrdered By: Krzysztof Salazar on 09-20-2023 Potassium [Moles/Vol] 4.4 mmol/L Normal 3.5-5.[address] [facility] Comment on above: Performed By: #### F ER, CMP, CBC, FE and TIBC #### [place] [address] [place] #### TOMA SERUM, SPE, KAPPA #### [facility] , Protein Electrophoresis, Ser umon 09-20-2023 Djupu-7-Wemvhwit 0.3 g/dL Normal 0.0-0.4 [facility] Comment on above: Performed By: #### F ER, CMP, CBC, FE and TIBC #### [address] #### TOMA SERUM, SPE, KAPPA #### [facility] , Jbikm-7-Pdxpmwku 0.8 g/dL Normal 0.4-1.0 [facility] Comment on above: Performed By: #### F ER, CMP, CBC, FE and TIBC #### [address] #### TOMA SERUM, SPE, KAPPA #### [facility] , Beta Globulin 1.2 g/dL Normal 0.7-1.3 [facility] Comment on above: Performed By: #### F ER, CMP, CBC, FE and TIBC #### [place] [address] [place] #### TOMA SERUM, SPE, KAPPA #### [facility] , Gamma Globulin 1.8 g/dL Normal 0.4-1.8 [facility] Comment on above: Performed By: #### F ER, CMP, CBC, FE and TIBC #### [place] [address] [place] #### TOMA SERUM, SPE, KAPPA #### [facility] , M-Antwan Not Observed Normal Not Observed [facility] Comment on above: Performed By: #### F ER, CMP, CBC, FE and TIBC #### [place] [address] [place] #### TOMA SERUM, SPE, KAPPA #### [facility] , SPE-Note Normal . [facility] Comment on above: Result Comment: Prot ein electrophoresis scan will follow via computer, mail, or induction coordination power engineer delivery. Performed By: #### F ER, CMP, CBC, FE and TIBC #### [address] #### TOMA SERUM, SPE, KAPPA #### [facility] , Protein [Mass/volume] in Ser um or PlasmaOrdered By: Krzysztof Salazar on 09-20-2023 Protein [Mass/Vol] 7.7 g/dL Normal 6.4-8.9 [facility] Comment on above: Performed By: #### F ER, CMP, CBC, FE and TIBC #### [place] [address] [place] #### TOMA SERUM, SPE, KAPPA #### [facility] , Protein [Mass/Vol] 7.8 g/dL Normal 6.0-8.5 [facility] Comment on above: Performed By: #### F ER, CMP, CBC, FE and TIBC #### [place] [address] [place] #### TOMA SERUM, SPE, KAPPA #### [facility] , Serum globulin measurement ( mass/volume)Ordered By: Krzysztof Salazar on 09-20-2023 Globulin (S) [Mass/Vol] 4.0 g/dL High 2.2-3.9 [facility] Comment on above: Performed By: #### F ER, CMP, CBC, FE and TIBC #### [place] [address] [place] #### TOMA SERUM, SPE, KAPPA #### [facility] , Serum globulin measurement b y calculation (mass/volume)Ordered By: Krzysztof Salazar on 09-20-2023 Globulin (S) [Mass/Vol] 3.5 g/dL Normal [facility] Comment on above: Performed By: #### F ER, CMP, CBC, FE and TIBC #### [facility] [address] [place] [address] [place] #### TOMA SERUM, SPE, KAPPA #### [facility] , Serum or plasma albumin/glob ulin mass ratioOrdered By: Krzysztof Salazar on 09-20-2023 Albumin/Globulin [Mass ratio] 1.2 {ratio} Normal [facility] Comment on above: Performed By: #### F ER, CMP, CBC, FE and TIBC #### [facility] [address] [place] [address] [place] #### TOMA SERUM, SPE, KAPPA #### [facility] , Albumin/Globulin [Mass ratio] 1.0 {ratio} Normal 0.7-1.7 [facility] Comment on above: Performed By: #### F ER, CMP, CBC, FE and TIBC #### [facility] [address] [place] [address] [place] #### TOMA SERUM, SPE, KAPPA #### [facility] , Serum or plasma alpha 1 glob ulin measurement by electrophoresis (mass/volume)Ordered By: Krzysztof Salazar on 09-20-2023 Alpha 1 globulin Elph [Mass/Vol] 0.3 g/dL 0.0-0.4 [facility] Serum or plasma alpha 2 glob ulin measurement by electrophoresis (mass/volume)Ordered By: Krzysztof Salazar on 09-20-2023 Alpha 2 globulin Elph [Mass/Vol] 0.8 g/dL 0.4-1.0 [facility] Serum or plasma anion gap de terminationOrdered By: Krzysztof Salazar on 09-20-2023 Anion gap [Moles/Vol] 11.0 mmol/L Normal 6.0-15.0 [facility] Comment on above: Performed By: #### F ER, CMP, CBC, FE and TIBC #### [facility] [address] [place] [address] #### TOMA SERUM, SPE, KAPPA #### [facility] , Serum or plasma beta globuli n measurement by electrophoresis (mass/volume)Ordered By: Krzysztof Salazar on 09-20-2023 Beta globulin Elph [Mass/Vol] 1.2 g/dL 0.7-1.3 [facility] Serum or plasma gamma globul in measurement by electrophoresis (mass/volume)Ordered By: Krzysztof Salazar on 09-20-2023 Gamma globulin Elph [Mass/Vol] 1.8 g/dL 0.4-1.8 [facility] Sodium [Moles/volume] in Ser um or PlasmaOrdered By: Krzysztof Salazar on 09-20-2023 Sodium [Moles/Vol] 136 mmol/L Normal 136-145 [facility] Comment on above: Performed By: #### F ER, CMP, CBC, FE and TIBC #### [place] [address] [place] #### TOMA SERUM, SPE, KAPPA #### [facility] , Transferrin [Mass/volume] in Serum or PlasmaOrdered By: Krzysztof Salazar on 09-20-2023 Transferrin [Mass/Vol] 246 mg/dL Normal 203-362 [facility] Comment on above: Performed By: #### F ER, CMP, CBC, FE and TIBC #### [facility] [address] [place] [address] #### TOMA SERUM, SPE, KAPPA #### [facility] , Urea nitrogen [Mass/volume] in Serum or PlasmaOrdered By: Krzysztof Salazar on 09-20-2023 Urea nitrogen [Mass/Vol] 16 mg/dL Normal 7-25 [facility] Comment on above: Performed By: #### F ER, CMP, CBC, FE and TIBC #### [facility] [address] [place] [id number] [place] #### TOMA SERUM, SPE, KAPPA #### [facility] , US pelvic completeon 024 US pelvic complete [facility] [address] [place] [id number] Ultrasound Report Signed Patient: Geeta Shelton MR#: [id number] : 1970 Acct:[id number] Age/Sex: 53 / F ADM Date: 09/07/23 Loc: Room: Type: [facility] Attending Dr: Elizabeth Alvarado APRN, NP-C Ordering Provider: Elizabeth Alvarado APRN, CNP Date of Service: 09/07/23 US/US transvaginal: Abnormal vaginal bleeding ([id number]) US/US pelvic complete: Abnormal vaginal bleeding Copies [...] Davis Jr., D.O.09/07/2023 2:39 PM Dictation Location: [place] [address] Tech: Jessica Sinclairvolodymyr Transcribed By: SEJAL 09/07/23 2829 Dictated By: Jesus Davis Jr, DO 09/07/23 1437 Signed By: 09/07/23 1439 Normal [facility] Alanine aminotransferase [En zymatic activity/volume] in Serum or PlasmaOrdered By: Elizabeth Alvarado on 08-24-2023 ALT [Catalytic activity/Vol] 28 U/L Normal 7-52 [facility] Comment on above: Order Comment: Reaso n for Exam Type 2 diabetes mellitus without complication, without long- Performed By: #### F ER, CMP, CBC, FE and TIBC #### [facility] [address] [place] [address] #### TOAM SERUM, SPE, KAPPA #### [facility] , Albumin [Mass/volume] in Ser um or Plasma by Bromocresol green (BCG) dye binding methoOrdered By: Elizabeth Alvarado on 08-24-2023 Albumin BCG dye [Mass/Vol] 4.3 g/dL 3.5-5.7 [facility] Alkaline phosphatase [Enzyma tic activity/volume] in Serum or PlasmaOrdered By: Elizabeth Alvarado on 08-24-2023 ALP [Catalytic activity/Vol] 86 U/L Normal 34-104 [facility] Comment on above: Order Comment: Reaso n for Exam Type 2 diabetes mellitus without complication, without long- Performed By: #### F ER, CMP, CBC, FE and TIBC #### [facility] [address] [place] [address] [place] #### TOMA SERUM, SPE, KAPPA #### [facility] , Aspartate aminotransferase [ Enzymatic activity/volume] in Serum or PlasmaOrdered By: Elizabeth Alvarado on 08-24-2023 AST [Catalytic activity/Vol] 28 U/L Normal 13-39 [facility] Comment on above: Order Comment: Reaso n for Exam Type 2 diabetes mellitus without complication, without long- Performed By: #### F ER, CMP, CBC, FE and TIBC #### [facility] [address] [place] [address] [place] #### TOMA SERUM, SPE, KAPPA #### [facility] , Automated basophil %Ordered By: Elizabeth Alvarado on 08-24-2023 Basophils/100 WBC (Bld) 0.7 % Normal . [facility] Comment on above: Order Comment: Reaso n for Exam Type 2 diabetes mellitus without complication, without long- Performed By: #### T SH3 wRFLX, LIPID, CBC, CMP #### [facility] [address] Automated basophil countOrde red By: Elizabeth Alvarado on 08-24-2023 Basophils (Bld) [#/Vol] 0.1 10*3/uL Normal 0.0-0.2 [facility] Comment on above: Order Comment: Reaso n for Exam Type 2 diabetes mellitus without complication, without long- Result Comment: PERF ORMED BY: [place] [address] PATHOLOGIST COMPRESSOR ENGINEER MELODY ELAM M.D. Performed By: #### T SH3 wRFLX, LIPID, CBC, CMP #### [address] Automated blood monocyte cou ntOrdered By: Elizabeth Alvarado on 08-24-2023 Monocytes (Bld) [#/Vol] 0.8 10*3/uL Normal 0.0-0.8 [facility] Comment on above: Order Comment: Reaso n for Exam Type 2 diabetes mellitus without complication, without long- Performed By: #### T SH3 wRFLX, LIPID, CBC, CMP #### [address] Automated eosinophil %Ordere d By: Elizabeth Alvarado on 08-24-2023 Eosinophils/100 WBC (Bld) 3.3 % Normal . [facility] Comment on above: Order Comment: Reaso n for Exam Type 2 diabetes mellitus without complication, without long- Performed By: #### T SH3 wRFLX, LIPID, CBC, CMP #### [address] Automated eosinophil countOr dered By: Elizabeth Alvarado on 08-24-2023 Eosinophils (Bld) [#/Vol] 0.3 10*3/uL Normal 0.0-0.45 [facility] Comment on above: Order Comment: Reaso n for Exam Type 2 diabetes mellitus without complication, without long- Performed By: #### T SH3 wRFLX, LIPID, CBC, CMP #### [facility] [address] Automated monocyte %Ordered By: Elizabeth Alvarado on 08-24-2023 Monocytes/100 WBC (Bld) 8.1 % Normal . [facility] Comment on above: Order Comment: Reaso n for Exam Type 2 diabetes mellitus without complication, without long- Performed By: #### T SH3 wRFLX, LIPID, CBC, CMP #### [facility] [address] Automated neutrophil %Ordere d By: Elizabeth Alvarado on 08-24-2023 Neutrophils/100 WBC (Bld) 62.4 % Normal . [facility] Comment on above: Order Comment: Reaso n for Exam Type 2 diabetes mellitus without complication, without long- Performed By: #### T SH3 wRFLX, LIPID, CBC, CMP #### [facility] [address] [place] [address] Bilirubin.total [Mass/volume ] in Serum or PlasmaOrdered By: Elizabeth Alvarado on 08-24-2023 Bilirubin [Mass/Vol] 0.4 mg/dL Normal 0.3-1.0 [facility] Comment on above: Order Comment: Reaso n for Exam Type 2 diabetes mellitus without complication, without long- Performed By: #### F ER, CMP, CBC, FE and TIBC #### [facility] [address] [place] [address] [place] #### TOMA SERUM, SPE, KAPPA #### [facility] , Calcium [Mass/volume] in Ser um or PlasmaOrdered By: Elizabeth Alvarado on 08-24-2023 Calcium [Mass/Vol] 9.4 mg/dL Normal 8.6-10.3 [facility] Comment on above: Order Comment: Reaso n for Exam Type 2 diabetes mellitus without complication, without long- Performed By: #### F ER, CMP, CBC, FE and TIBC #### [facility] [address] [place] [address] [place] #### TOMA SERUM, SPE, KAPPA #### [facility] , Carbon dioxide, total [Moles /volume] in Serum or PlasmaOrdered By: Elizabeth Alvarado on 08-24-2023 CO2 [Moles/Vol] 29.2 mmol/L Normal 21.0-31.0 [facility] Comment on above: Order Comment: Reaso n for Exam Type 2 diabetes mellitus without complication, without long- Performed By: #### F ER, CMP, CBC, FE and TIBC #### [facility] [address] [place] [address] #### TOMA SERUM, SPE, KAPPA #### [facility] , Chloride [Moles/volume] in S hugo or PlasmaOrdered By: Elizabeth Alvarado on 08-24-2023 Chloride [Moles/Vol] 96 mmol/L Low 98-107 [facility] Comment on above: Order Comment: Reaso n for Exam Type 2 diabetes mellitus without complication, without long- Performed By: #### F ER, CMP, CBC, FE and TIBC #### [facility] [address] [place] [address] #### TOMA SERUM, SPE, KAPPA #### [facility] , Cholesterol [Mass/volume] in Serum or PlasmaOrdered By: Elizabeth Alvarado on 08-24-2023 Cholesterol [Mass/Vol] 160 mg/dL Normal 140-200 [facility] Comment on above: Chol less than [...] ER, CMP, CBC, FE and TIBC #### [facility] [address] [place] [address] #### TOMA SERUM, SPE, KAPPA #### [facility] , Cholesterol in LDL Calc [Mas s/Vol]Ordered By: Elizabeth Alvarado on 08-24-2023 Cholesterol in LDL [Mass/Vol] 78 mg/dL 0-100 [facility] Comment on above: LDL ATP III CLASSIFI CATIONLDL less than 100 mg/dL OptimalLDL 100-129 mg/dL Near or above optimalLDL 130-159 mg/dL Borderline highLDL 160-189 mg/dL HighLDL greater than 189 mg/dL Very high Cholesterol in VLDL Calc [Ma ss/Vol]Ordered By: Elizabeth Alvarado on 08-24-2023 Cholesterol in VLDL [Mass/Vol] 22 mg/dL [facility] Complete Blood Count Auto Di ffon 08-24-2023 Mean Corpuscular HGB Conc 32.5 g/dL Normal 32.0-35.0 [facility] Comment on above: Order Comment: Reaso n for Exam Type 2 diabetes mellitus without complication, without long- Performed By: #### T SH3 wRFLX, LIPID, CBC, CMP #### [address] NRBC% 0.2 /100{WBC} Normal 0-0.5 [facility] Comment on above: Order Comment: Reaso n for Exam Type 2 diabetes mellitus without complication, without long- Performed By: #### T SH3 wRFLX, LIPID, CBC, CMP #### [address] Comprehensive Metabolic Pane gretel 08-24-2023 Albumin [Mass/Vol] 4.3 g/dL Normal 3.5-5.7 [facility] Comment on above: Order Comment: Reaso n for Exam Type 2 diabetes mellitus without complication, without long- Performed By: #### F ER, CMP, CBC, FE and TIBC #### [address] #### TOMA SERUM, SPE, KAPPA #### [facility] , GFR/1.73 sq M.predicted MDRD (S/P/Bld) [Vol rate/Area] mL/min/{1.73_m2} Normal [facility] Comment on above: Order Comment: Reaso n for Exam Type 2 diabetes mellitus without complication, without long- Performed By: #### F ER, CMP, CBC, FE and TIBC #### [facility] [address] [place] [address] #### TOMA SERUM, SPE, KAPPA #### [facility] , Creatinine [Mass/volume] in Serum or PlasmaOrdered By: Elizabeth Alvarado on 08-24-2023 Creatinine [Mass/Vol] 0.65 mg/dL Normal 0.60-1.[address] [facility] Comment on above: Order Comment: Reaso n for Exam Type 2 diabetes mellitus without complication, without long- Performed By: #### F ER, CMP, CBC, FE and TIBC #### [facility] [address] [place] [address] #### TOMA SERUM, SPE, KAPPA #### [facility] , Creatinine [Mass/volume] in UrineOrdered By: Elizabeth Alvarado on 08-24-2023 Creatinine (U) [Mass/Vol] 76.0 mg/dL [facility] Comment on above: No reference range e stablished Erythrocyte distribution wid th [Ratio] by Automated countOrdered By: Elizabeth Alvarado on 08-24-2023 Erythrocyte distribution width (RBC) [Ratio] 15.8 % High 11.9-15.3 [facility] Comment on above: Order Comment: Reaso n for Exam Type 2 diabetes mellitus without complication, without long- Performed By: #### T SH3 wRFLX, LIPID, CBC, CMP #### [facility] [address] [place] [address] Erythrocytes [#/volume] in B lood by Automated countOrdered By: Elizabeth Alvarado on 08-24-2023 RBC (Bld) [#/Vol] 5.06 10*6/uL High 3.60-5.00 [facility] Comment on above: Order Comment: Reaso n for Exam Type 2 diabetes mellitus without complication, without long- Performed By: #### T SH3 wRFLX, LIPID, CBC, CMP #### [facility] [address] Glucose [Mass/volume] in Ser um or PlasmaOrdered By: Elizabeth Alvarado on 08-24-2023 Glucose [Mass/Vol] 92 mg/dL Normal 70-100 [facility] Comment on above: ADA recommended refe rence rangeRandom Glucose Reference Range is dependent on time and content of last meal. Glucose of more than 200 mg/dL in a nonstressed, ambulatory subject supports the diagnosis of Diabetes Mellitus. Order Comment: Reaso n for Exam Type 2 diabetes mellitus without complication, without long- Result Comment: [place] Glucose Reference Range is dependent on time and content of last meal. Glucose of more than 200 mg/dL in a nonstressed, ambulatory subject supports the diagnosis of Diabetes Mellitus. ADA recommended reference range Performed By: #### F ER, CMP, CBC, FE and TIBC #### [facility] [address] [place] [address] #### TOMA SERUM, SPE, KAPPA #### [facility] , Hematocrit [Volume Fraction] of Blood by Automated countOrdered By: Elizabeth Alvarado on 08-24-2023 Hematocrit (Bld) [Volume fraction] 40.6 % Normal 34.0-46.4 [facility] Comment on above: Order Comment: Reaso n for Exam Type 2 diabetes mellitus without complication, without long- Performed By: #### T SH3 wRFLX, LIPID, CBC, CMP #### [facility] [address] Hemoglobin [Mass/volume] in BloodOrdered By: Elizabeth Alvarado on 08-24-2023 Hemoglobin (Bld) [Mass/Vol] 13.2 g/dL Normal 11.8-15.4 [facility] Comment on above: Order Comment: Reaso n for Exam Type 2 diabetes mellitus without complication, without long- Performed By: #### T SH3 wRFLX, LIPID, CBC, CMP #### [facility] [address] Leukocytes [#/volume] correc silverio for nucleated erythrocytes in Blood by Automated counOrdered By: Elizabeth Alvarado on 08-24-2023 WBC corrected for nucl RBC Auto (Bld) [#/Vol] 10.2 10*3/uL 3.8-11.6 [facility] Leukocytes [#/volume] in Blo od by Automated countOrdered By: Elizabeth Alvarado on 08-24-2023 WBC (Bld) [#/Vol] 10.2 10*3/uL Normal 3.8-11.6 [facility] Comment on above: Order Comment: Reaso n for Exam Type 2 diabetes mellitus without complication, without long- Performed By: #### T SH3 wRFLX, LIPID, CBC, CMP #### [facility] [address] [place] [address] Lipid Panelon 08-24-2023 LDL Cholesterol,Calculated 78 mg/dL Normal 0-100 [facility] Comment on above: Order Comment: [...] ER, CMP, CBC, FE and TIBC #### [facility] [address] [place] [address] #### TOMA SERUM, SPE, KAPPA #### [facility] , Triglyceride w/Reflex 112 mg/dL Normal 0-149 [facility] Comment on above: Order Comment: [...] ER, CMP, CBC, FE and TIBC #### [address] #### TOMA SERUM, SPE, KAPPA #### [facility] , VLDL CHOLESTEROL 22 mg/dL Normal [facility] Comment on above: Order Comment: Reaso n for Exam Type 2 diabetes mellitus without complication, without long- Performed By: #### F ER, CMP, CBC, FE and TIBC #### [address] #### TOMA SERUM, SPE, KAPPA #### [facility] , Lymphocytes [#/volume] in Bl ood by Automated countOrdered By: Elizabeth Alvarado on 08-24-2023 Lymphocytes (Bld) [#/Vol] 2.6 10*3/uL Normal 1.00-4.8 [facility] Comment on above: Order Comment: Reaso n for Exam Type 2 diabetes mellitus without complication, without long- Performed By: #### T SH3 wRFLX, LIPID, CBC, CMP #### [address] Lymphocytes/100 leukocytes i n Blood by Automated countOrdered By: Elizabeth Alvarado on 08-24-2023 Lymphocytes/100 WBC (Bld) 25.5 % Normal . [facility] Comment on above: Order Comment: Reaso n for Exam Type 2 diabetes mellitus without complication, without long- Performed By: #### T SH3 wRFLX, LIPID, CBC, CMP #### [address] MCH [Entitic mass] by Automa silverio countOrdered By: Elizabeth Alvarado on 08-24-2023 MCH (RBC) [Entitic mass] 26.1 pg Normal 24.7-34.3 [facility] Comment on above: Order Comment: Reaso n for Exam Type 2 diabetes mellitus without complication, without long- Performed By: #### T SH3 wRFLX, LIPID, CBC, CMP #### [address] MCHC Auto (RBC) [Mass/Vol]Or dered By: Elizabeth Alvarado on 08-24-2023 MCHC (RBC) [Mass/Vol] 32.5 g/dL 32.0-35.[address] [facility] MCV [Entitic volume] by Auto mated countOrdered By: Elizabeth Alvarado on 08-24-2023 MCV (RBC) [Entitic vol] 80.3 fL Normal 80-100 [facility] Comment on above: Order Comment: Reaso n for Exam Type 2 diabetes mellitus without complication, without long- Performed By: #### T SH3 wRFLX, LIPID, CBC, CMP #### [address] MicroAlb Creat Ratio,Uon Creatinine, Urine (Random) 76.0 mg/dL Normal [facility] Comment on above: Order Comment: Reaso n for Exam Type 2 diabetes mellitus without complication, without long- Result Comment: No r eference range established Performed By: #### F ER, CMP, CBC, FE and TIBC #### [address] #### TOMA SERUM, SPE, KAPPA #### [facility] , Microalbumin/Creatinine Ratio Not performed Normal 0.0-30.0 [facility] Comment on above: Order Comment: Reaso n for Exam Type 2 diabetes mellitus without complication, without long- Result Comment: PERF ORMED BY: [place] [address] PATHOLOGIST COMPRESSOR ENGINEER MELODY ELAM M.D. Performed By: #### F ER, CMP, CBC, FE and TIBC #### [address] #### TOMA SERUM, SPE, KAPPA #### [facility] , Microalbumin [Mass/volume] i n UrineOrdered By: Elizabeth Alvarado on 08-24-2023 Albumin DL <= 20 mg/L (U) [Mass/Vol] mg/dL High 0.0-1.8 [facility] Comment on above: Order Comment: Reaso n for Exam Type 2 diabetes mellitus without complication, without long- Performed By: #### F ER, CMP, CBC, FE and TIBC #### [facility] [address] #### TOMA SERUM, SPE, KAPPA #### [facility] , Neutrophils [#/volume] in Bl ood by Automated countOrdered By: Elizabeth Alvarado on 08-24-2023 Neutrophils (Bld) [#/Vol] 6.4 10*3/uL Normal 1.8-7.7 [facility] Comment on above: Order Comment: Reaso n for Exam Type 2 diabetes mellitus without complication, without long- Performed By: #### T SH3 wRFLX, LIPID, CBC, CMP #### [facility] [address] [place] [address] No Panel InformationOrdered By: Elizabeth Alvarado on 08-24-2023 Estimated GFR (CKD-EPI) > 60.0 mL/Min [facility] Creatinine Clearance (Chem N/A [facility] Nucleated erythrocytes [Pres ence] in Blood by Automated countOrdered By: Elizabeth Alvarado on 08-24-2023 Nucleated RBC Auto Ql (Bld) 0.2 /100{WBC} 0-0.5 [facility] Platelet mean volume [Entiti c volume] in Blood by Automated countOrdered By: Elizabeth Alvarado on 08-24-2023 Platelet mean volume (Bld) [Entitic vol] 9.8 fL Normal 6.3-10.7 [facility] Comment on above: Order Comment: Reaso n for Exam Type 2 diabetes mellitus without complication, without long- Performed By: #### T SH3 wRFLX, LIPID, CBC, CMP #### [facility] [address] [place] [address] Platelets [#/volume] in Bloo d by Automated countOrdered By: Elizabeth Alvarado on 08-24-2023 Platelets (Bld) [#/Vol] 283 10*3/uL Normal 150-450 [facility] Comment on above: Order Comment: Reaso n for Exam Type 2 diabetes mellitus without complication, without long- Performed By: #### T SH3 wRFLX, LIPID, CBC, CMP #### [facility] [address] [place] [address] Potassium [Moles/volume] in Serum or PlasmaOrdered By: Elizabeth Alvarado on 08-24-2023 Potassium [Moles/Vol] 4.3 mmol/L Normal 3.5-5.[address] [facility] Comment on above: Order Comment: Reaso n for Exam Type 2 diabetes mellitus without complication, without long- Performed By: #### F ER, CMP, CBC, FE and TIBC #### [facility] [address] [place] [address] #### TOMA SERUM, SPE, KAPPA #### [facility] , Protein [Mass/volume] in Ser um or PlasmaOrdered By: Elizabeth Alvarado on 08-24-2023 Protein [Mass/Vol] 7.7 g/dL Normal 6.4-8.9 [facility] Comment on above: Order Comment: Reaso n for Exam Type 2 diabetes mellitus without complication, without long- Performed By: #### F ER, CMP, CBC, FE and TIBC #### [facility] [address] [place] [address] #### TOMA SERUM, SPE, KAPPA #### [facility] , Serum globulin measurement b y calculation (mass/volume)Ordered By: Elizabeth Alvarado on 08-24-2023 Globulin (S) [Mass/Vol] 3.4 g/dL Normal [facility] Comment on above: Order Comment: Reaso n for Exam Type 2 diabetes mellitus without complication, without long- Performed By: #### F ER, CMP, CBC, FE and TIBC #### [facility] [address] [place] [address] #### TOMA SERUM, SPE, KAPPA #### [facility] , Serum or plasma albumin/glob ulin mass ratioOrdered By: Elizabeth Alvarado on 08-24-2023 Albumin/Globulin [Mass ratio] 1.3 {ratio} Normal [facility] Comment on above: Order Comment: Reaso n for Exam Type 2 diabetes mellitus without complication, without long- Performed By: #### F ER, CMP, CBC, FE and TIBC #### [facility] [address] [place] [address] [place] #### TOMA SERUM, SPE, KAPPA #### [facility] , Serum or plasma anion gap de terminationOrdered By: Elizabeth Alvarado on 08-24-2023 Anion gap [Moles/Vol] 18.1 mmol/L High 6.0-15.0 [facility] Comment on above: Order Comment: Reaso n for Exam Type 2 diabetes mellitus without complication, without long- Performed By: #### F ER, CMP, CBC, FE and TIBC #### [facility] [address] [place] [address] [place] #### TOMA SERUM, SPE, KAPPA #### [facility] , Serum or plasma high density lipoprotein (HDL) cholesterol measurementOrdered By: Elizabeth Alvarado on 08-24-2023 Cholesterol in HDL [Mass/Vol] 60 mg/dL Normal 23- [facility] Comment on above: HDL CHOL ATP-III CLA [...] ER, CMP, CBC, FE and TIBC #### [facility] [address] [place] [address] [place] #### TOMA SERUM, SPE, KAPPA #### [facility] , Serum or plasma total choles terol/high density lipoprotein (HDL) cholesterol mass ratOrdered By: Elizabeth Alvarado on 08-24-2023 Cholesterol.total/Choles terol in HDL [Mass ratio] 2.7 {ratio} Normal <5.0 [facility] Comment on above: Order Comment: Reaso n for Exam Type 2 diabetes mellitus without complication, without long- Performed By: #### F ER, CMP, CBC, FE and TIBC #### [address] #### TOMA SERUM, SPE, KAPPA #### [facility] , Sodium [Moles/volume] in Ser um or PlasmaOrdered By: Elizabeth Alvarado on 08-24-2023 Sodium [Moles/Vol] 139 mmol/L Normal 136-145 [facility] Comment on above: Order Comment: Reaso n for Exam Type 2 diabetes mellitus without complication, without long- Performed By: #### F ER, CMP, CBC, FE and TIBC #### [address] #### TOMA SERUM, SPE, KAPPA #### [facility] , Thyroid Stim Hormone w/Rflxo n 08-24-2023 Thyroid Stim Hormone w/Rflx 2.40 u[iU]/mL Normal 0.45-5.33 [facility] Comment on above: Order Comment: Reaso n for Exam Type 2 diabetes mellitus without complication, without long- Result Comment: PERF ORMED BY: [place] [address] PATHOLOGIST COMPRESSOR ENGINEER MELODY ELAM M.D. Performed By: #### F ER, CMP, CBC, FE and TIBC #### [address] #### TOMA SERUM, SPE, KAPPA #### [facility] , Thyrotropin [Units/volume] i n Serum or PlasmaOrdered By: Elizabeth Alvarado on 08-24-2023 TSH Qn 2.40 m[IU]/L 0.45-5.33 [facility] Triglyceride [Mass/volume] i n Serum or PlasmaOrdered By: Elizabeth Alvarado on 08-24-2023 Triglyceride [Mass/Vol] 112 mg/dL 0-149 [facility] Comment on above: TRIG ATP III CLASSIF ICATIONTRIG less than 150 mg/dL NormalTRIG 150-199 mg/dL Borderline highTRIG 200-500 mg/dL High TRIG greater than 500 mg/dL Very highStandard traceable to the Center for Disease Conrtrol and Prevention (CDC) test method. Urea nitrogen [Mass/volume] in Serum or PlasmaOrdered By: Elizabeth Alvarado on 08-24-2023 Urea nitrogen [Mass/Vol] 17 mg/dL Normal 7-25 [facility] Comment on above: Order Comment: Reaso n for Exam Type 2 diabetes mellitus without complication, without long- Performed By: #### F ER, CMP, CBC, FE and TIBC #### [facility] [address] #### TOMA SERUM, SPE, KAPPA #### [facility] , Urine microalbumin/creatinin e mass ratioOrdered By: Elizabeth Alvarado on 08-24-2023 Albumin/Creatinine DL <= 20 mg/L (U) [Mass ratio] TNP [facility] Comment on above: Test not performed MM screening mammo BI w/CADo n 05-10-2023 MM screening mammo BI w/CAD [facility] [address] [place] [address] Mammography Report Signed Patient: Geeta Shelton MR#: [id number] : 1970 Acct:[id number] Age/Sex: 53 / F ADM Date: 05/10/23 Loc: [place] Room: Type: [facility] Attending Dr: Elizabeth Alvarado APRN, SPORTS COORDINATOR-C Copies to: Elizabeth Alvarado APRN, CNP Ordering [...] Mary Colon M.D.05/10/2023 10:10 AM Dictation Location: [facility] Transcribed By: [facility] 05/10/23 1010 Dictated By: Mary Colon MD 05/10/23 1007 Signed By: 05/10/23 1010 Normal [facility] Established Visit (Orthopaed ic Surgery)on [...] grammatical areas may persist related to the Therma Flite software Merrill Alejandro PA-C . Active Problems [...] Dec 29 2022 1:38PM EST (Author) Normal [facility] Established Visit (Orthopaed ic Surgery)on 09-22-2022 Established Visit (Orthopaedic Surgery) Diagnoses/Problems Assessed Status post total knee replacement (V43.65) (Z96.659) Orders Status post total knee replacement Xray Knee 3 View; Status:Complete; Done: [id number] 01:48PM Laterality : Right Radiologist to Determine [...] grammatical areas may persist related to the Therma Flite software Acosta Schafer MD Senior Attending Physician [facility] . Active Problems Problems Acute pain [...] 1 tablet daily Results/Data Xray Knee 3 [id number] 01:48PMAcosta Schafer Test NameResultFlagReference Xray Knee 3 View(Report) FINAL REPORT Interpreted by: ACOSTA SCHAFER BURTON, MD 09/22/22 14:13 Patient Name: GEETA SHELTON STUDY: KNEE; 3 VIEWS; Right; 09/22/2022 1:48 pm INDICATION: pain Z96.659: Status post total knee replacement. ACCESSION NUMBER(S): [id number] ORDERING CLINICIAN: ACOSTA SCHAFER FINDINGS: Right knee [...] Status post total knee replacement. ACCESSION NUMBER(S): [id number] ORDERING CLINICIAN: ACOSTA SCHAFER FINDINGS: Right knee three views. Status post revision total knee replacement components in good position no signs of fracture dislocation or other bony abnormalities Electronically signed by: ACOSTA SCHAFER MD Normal [facility] Radiologyon 09-22-2022 XR Knee 3 Views Normal [facility] [facility] Work Phone: Alanine aminotransferase [En zymatic activity/volume] in Serum or PlasmaOrdered By: Zoey Ramirez on 08-17-2022 ALT [Catalytic activity/Vol] 45 U/L 7-52 [facility] Albumin [Mass/volume] in Ser um or PlasmaOrdered By: Zoey Ramirez on 08-17-2022 Albumin [Mass/Vol] 3.7 g/dL 2.9-4.4 [facility] Albumin [Mass/volume] in Ser um or Plasma by Bromocresol green (BCG) dye binding methoOrdered By: Zoey Ramirez on 08-17-2022 Albumin BCG dye [Mass/Vol] 4.1 g/dL 3.5-5.7 [facility] Albumin/Protein.total in 24 hour Urine by ElectrophoresisOrdered By: Zoey Ramirez on 08-17-2022 Albumin Elph (24H U) [Mass fraction] 59.9 % . [facility] Alkaline phosphatase [Enzyma tic activity/volume] in Serum or PlasmaOrdered By: Zoey Ramirez on 08-17-2022 ALP [Catalytic activity/Vol] 90 U/L 34-104 [facility] Aspartate aminotransferase [ Enzymatic activity/volume] in Serum or PlasmaOrdered By: Zoey Ramirez on 08-17-2022 AST [Catalytic activity/Vol] 40 U/L 13-39 [facility] Basophils Auto (Bld) [#/Vol] Ordered By: Zoey Ramirez on 08-17-2022 Basophils (Bld) [#/Vol] 0.1 10*3/uL 0.0-0.2 [facility] Basophils/100 WBC Auto (Bld) Ordered By: Zoey Ramirez on 08-17-2022 Basophils/100 WBC (Bld) 0.9 % . [facility] Bilirubin.total [Mass/volume ] in Serum or PlasmaOrdered By: Zoey Ramirez on 08-17-2022 Bilirubin [Mass/Vol] 0.4 mg/dL 0.3-1.0 [facility] Calcium [Mass/volume] in Ser um or PlasmaOrdered By: Zoey Ramirez on 08-17-2022 Calcium [Mass/Vol] 9.1 mg/dL 8.6-10.3 [facility] Carbon dioxide, total [Moles /volume] in Serum or PlasmaOrdered By: Zoey Ramirez on 08-17-2022 CO2 [Moles/Vol] 27.9 mmol/L 21.0-31.0 [facility] Chloride [Moles/volume] in S hugo or PlasmaOrdered By: Zoey Ramirez on 08-17-2022 Chloride [Moles/Vol] 100 mmol/L 98-107 [facility] Creatinine [Mass/volume] in Serum or PlasmaOrdered By: Zoey Ramirez on 08-17-2022 Creatinine [Mass/Vol] 0.71 mg/dL 0.60-1.[address] [facility] Eosinophils Auto (Bld) [#/Vo l]Ordered By: Zoey Ramirez on 08-17-2022 Eosinophils (Bld) [#/Vol] 0.3 10*3/uL 0.0-0.45 [facility] Eosinophils/100 WBC Auto (Bl d)Ordered By: Zoey Ramirez on 08-17-2022 Eosinophils/100 WBC (Bld) 3.1 % . [facility] Erythrocyte distribution wid th Auto (RBC) [Ratio]Ordered By: Zoey Ramirez on 08-17-2022 Erythrocyte distribution width (RBC) [Ratio] 16.5 % 11.9-15.3 [facility] Ferritin [Mass/volume] in Se rum or PlasmaOrdered By: Zoey Ramirez on 08-17-2022 Ferritin [Mass/Vol] 85.3 ng/mL 11.0-306.8 [facility] Folate [Mass/volume] in Seru m or PlasmaOrdered By: Zoey Ramirez on 08-17-2022 Folate [Mass/Vol] 15.1 ng/mL >5.9 [facility] Comment on above: Folate reference ran ge: >5.9 ng/mlThe WHO technical consultation on folate and vitamin [id number] has determined that folate concentrations lessthan 4 ng/ml are considered deficient. Gamma globulin/Protein.total in 24 hour Urine by ElectrophoresisOrdered By: Zoey Ramirez on 08-17-2022 Gamma globulin Elph (24H U) [Mass fraction] 15.3 % . [facility] Globulin Calc (S) [Mass/Vol] Ordered By: Zoey Ramirez on 08-17-2022 Globulin (S) [Mass/Vol] 4.0 g/dL [facility] Glucose [Mass/volume] in Ser um or PlasmaOrdered By: Zoey Ramirez on 08-17-2022 Glucose [Mass/Vol] 142 mg/dL 70-100 [facility] Comment on above: ADA recommended refe rence rangeRandom Glucose Reference Range is dependent on time and content of last meal. Glucose of more than 200 mg/dL in a nonstressed, ambulatory subject supports the diagnosis of Diabetes Mellitus. Hematocrit Auto (Bld) [Volum e fraction]Ordered By: Zoey Ramirez on 08-17-2022 Hematocrit (Bld) [Volume fraction] 41.3 % 34.0-46.4 [facility] Hemoglobin [Mass/volume] in BloodOrdered By: Zoey Ramirez 08-17-2022 Hemoglobin (Bld) [Mass/Vol] 13.2 g/dL 11.8-15.4 [facility] IgA [Mass/volume] in Serum o r PlasmaOrdered By: Zoey Ramirez on 08-17-2022 IgA [Mass/Vol] 498 mg/dL 87-352 [facility] IgG [Mass/volume] in Serum o r PlasmaOrdered By: Zoey Ramirez on 08-17-2022 IgG [Mass/Vol] 1834 mg/dL 586-1602 [facility] IgM [Mass/volume] in Serum o r PlasmaOrdered By: Zoey Ramirez on 08-17-2022 IgM [Mass/Vol] 124 mg/dL 26-217 [facility] Comment on above: Performed at: [facility] [address] [id number] Director: Jeyson Duncan PhD, Phone: [phone] Immunofixation for UrineOrde red By: Zoey Ramirez on 08-17-2022 Interpretation Immunofixation (U) [Interp] See comment . [facility] Comment on above: No monoclonality det ected.Performed at: [facility] [address] [id number] Director: Jeyson Duncan PhD, Phone: [phone] Immunoglobulin light chains. kappa.free [Mass/volume] in SerumOrdered By: Zoey Ramirez on 08-17-2022 Immunoglobulin light chains.kappa.free (S) [Mass/Vol] 47.1 mg/L 3.3-19.4 [facility] Immunoglobulin light chains. kappa.free/Immunoglobulin light chains.lambda.free [MassOrdered By: Zoey Ramirez on 08-17-2022 Immunoglobulin light chains.kappa.free/Immuno globulin light chains.lambda.free (S) [Mass ratio] 1.65 0.26-1.65 [facility] Comment on above: Performed at: [facility] [address] [place] [id number] Director: Jeyson Duncan PhD, Phone: [phone] Immunoglobulin light chains. lambda.free [Mass/volume] in Serum or PlasmaOrdered By: Zoey Ramirez on 08-17-2022 Immunoglobulin light chains.lambda.free [Mass/Vol] 28.6 mg/L 5.7-26.3 [facility] Iron [Mass/volume] in Serum or PlasmaOrdered By: Zoey Ramirez on 08-17-2022 Iron [Mass/Vol] 41 ug/dL 50-212 [facility] Iron binding capacity [Mass/ volume] in Serum or PlasmaOrdered By: Zoey Ramirez on 08-17-2022 Iron binding capacity [Mass/Vol] 344 ug/dL 255-450 [facility] Iron saturation [Mass Fracti on] in Serum or PlasmaOrdered By: Zoey Ramirez on 08-17-2022 Iron saturation [Mass fraction] 11.9 % 20-50 [facility] Leukocytes [#/volume] correc silverio for nucleated erythrocytes in Blood by Automated counOrdered By: Zoey Ramirez on 08-17-2022 WBC corrected for nucl RBC Auto (Bld) [#/Vol] 9.9 10*3/uL 3.8-11.6 [facility] Lymphocytes Auto (Bld) [#/Vo l]Ordered By: Zoey Ramirez on 08-17-2022 Lymphocytes (Bld) [#/Vol] 2.8 10*3/uL 1.00-4.8 [facility] Lymphocytes/100 WBC Auto (Bl d)Ordered By: Zoey Ramirez on 08-17-2022 Lymphocytes/100 WBC (Bld) 28.5 % . [facility] MCH Auto (RBC) [Entitic mass ]Ordered By: Zoey Ramirez on 08-17-2022 MCH (RBC) [Entitic mass] 24.9 pg 24.7-34.3 [facility] MCHC Auto (RBC) [Mass/Vol]Or dered By: Zoey Ramirez on 08-17-2022 MCHC (RBC) [Mass/Vol] 32.0 g/dL 32.0-35.[address] [facility] MCV Auto (RBC) [Entitic vol] Ordered By: Zoey Ramirez on 04-25-2023 MCV (RBC) [Entitic vol] 77.8 fL 80-100 [facility] Monocytes Auto (Bld) [#/Vol] Ordered By: Zoey Ramirez on 08-17-2022 Monocytes (Bld) [#/Vol] 0.6 10*3/uL 0.0-0.8 [facility] Monocytes/100 WBC Auto (Bld) Ordered By: Zoey Ramirez on 08-17-2022 Monocytes/100 WBC (Bld) 5.9 % . [facility] Neutrophils Auto (Bld) [#/Vo l]Ordered By: Zoey Ramirez on 08-17-2022 Neutrophils (Bld) [#/Vol] 6.1 10*3/uL 1.8-7.7 [facility] Neutrophils/100 WBC Auto (Bl d)Ordered By: Zoey Ramirez on 08-17-2022 Neutrophils/100 WBC (Bld) 61.6 % . [facility] No Panel InformationOrdered By: Zoey Ramirez on 08-17-2022 Estimated GFR (CKD-EPI) > 60.0 mL/Min [facility] Creatinine Clearance (Chem 122.85 [facility] Protein Electrophoresis M-Antwan Not observed g/dL Not Observed [facility] Protein Electrophoresis Note See comment . [facility] Comment on above: Protein electrophore sis scan will follow via computer,mail, or induction coordination power engineer delivery.Performed at: [facility] [place] [id number] Director: Jeyson Duncan PhD, Phone: [phone] Serum Immunofixation Comment: . [facility] Comment on above: Presence of monoclon al protein is unclear at this time. Suggestrepeat in 3 to 6 months if clinically indicated. Urine Random Prot Electrophor Note See comment . [facility] Comment on above: Protein electrophore sis scan will follow via computer,mail, or induction coordination power engineer delivery.Performed at: [id number] [place], [place] [id number] Director: Jeyson Duncan PhD, Phone: [phone] Nucleated erythrocytes [Pres ence] in Blood by Automated countOrdered By: Zoey Ramirez on 08-17-2022 Nucleated RBC Auto Ql (Bld) 0.1 /100{WBC} 0-0.5 [facility] Platelet mean volume Auto (B ld) [Entitic vol]Ordered By: Zoey Ramirez on 08-17-2022 Platelet mean volume (Bld) [Entitic vol] 8.5 fL 6.3-10.7 [facility] Platelets Auto (Bld) [#/Vol] Ordered By: Zoey Ramirez on 08-17-2022 Platelets (Bld) [#/Vol] 345 10*3/uL 150-450 [facility] Potassium [Moles/volume] in Serum or PlasmaOrdered By: Zoey Ramirez on 08-17-2022 Potassium [Moles/Vol] 4.7 mmol/L 3.5-5.1 [facility] Protein [Mass/volume] in Ser um or PlasmaOrdered By: Zoey Ramirez on 08-17-2022 Protein [Mass/Vol] 8.1 g/dL 6.4-8.9 [facility] Protein [Mass/Vol] 8.0 g/dL 6.0-8.5 [facility] Protein [Mass/volume] in Uri neOrdered By: Zoey Ramirez on 08-17-2022 Protein (U) [Mass/Vol] 75.0 mg/dL Not Estab. Fi [facility] Protein.monoclonal/Protein.t otal in 24 hour Urine by ElectrophoresisOrdered By: Zoey Ramirez on 08-17-2022 Protein.monoclonal Elph (24H U) [Mass fraction] Not observed % Not Observed [facility] RBC Auto (Bld) [#/Vol]Ordere d By: Zoey Ramirez on 08-17-2022 RBC (Bld) [#/Vol] 5.31 10*6/uL 3.60-5.00 [facility] Serum globulin measurement ( mass/volume)Ordered By: Zoey Ramirez on 08-17-2022 Globulin (S) [Mass/Vol] 4.3 g/dL 2.2-3.9 [facility] Serum or plasma albumin/glob ulin mass ratioOrdered By: Zoey Ramirez on 08-17-2022 Albumin/Globulin [Mass ratio] 1.0 {ratio} [facility] Albumin/Globulin [Mass ratio] 0.9 {ratio} 0.7-1.7 [facility] Serum or plasma alpha 1 glob ulin measurement by electrophoresis (mass/volume)Ordered By: Zoey Ramirez on 08-17-2022 Alpha 1 globulin Elph [Mass/Vol] 0.3 g/dL 0.0-0.4 [facility] Serum or plasma alpha 2 glob ulin measurement by electrophoresis (mass/volume)Ordered By: Zoey Ramirez on 08-17-2022 Alpha 2 globulin Elph [Mass/Vol] 0.8 g/dL 0.4-1.0 [facility] Serum or plasma anion gap de terminationOrdered By: Zoey Ramirez 08-17-2022 Anion gap [Moles/Vol] 12.8 mmol/L 6.0-15.0 [facility] Serum or plasma beta globuli n measurement by electrophoresis (mass/volume)Ordered By: Zoey Ramirez 08-17-2022 Beta globulin Elph [Mass/Vol] 1.3 g/dL 0.7-1.3 [facility] Serum or plasma gamma globul in measurement by electrophoresis (mass/volume)Ordered By: Zoey Ramirez 08-17-2022 Gamma globulin Elph [Mass/Vol] 1.9 g/dL 0.4-1.8 [facility] Sodium [Moles/volume] in Ser um or PlasmaOrdered By: Zoey Ramirez on 08-17-2022 Sodium [Moles/Vol] 136 mmol/L 136-145 [facility] Transferrin [Mass/volume] in Serum or PlasmaOrdered By: Zoey Ramirez on 08-17-2022 Transferrin [Mass/Vol] 246 mg/dL 203-362 [facility] Urea nitrogen [Mass/volume] in Serum or PlasmaOrdered By: Zoey Ramirez on 08-17-2022 Urea nitrogen [Mass/Vol] 23 mg/dL 11-16 [facility] Urine alpha 1 globulin/total protein by electrophoresisOrdered By: Zoey Ramirez on 08-17-2022 Alpha 1 globulin Elph (U) [Mass fraction] 4.5 % . [facility] Urine alpha 2 globulin/total protein ratio by electrophoresisOrdered By: Zoeyelvin Ramirez on 08-17-2022 Alpha 2 globulin Elph (U) [Mass fraction] 7.7 % . [facility] Urine beta globulin measurem ent by electrophoresis (mass/volume)Ordered By: Zoeyelvin Ramirez on 08-17-2022 Beta globulin Elph (U) [Mass/Vol] 12.6 % . [facility] Vitamin B12 ser/plasOrdered By: Zoeyelvin Ramirez on 08-17-2022 Cobalamin (Vitamin B12) [Mass/Vol] 387 pg/mL 180-914 [facility] WBC Auto (Bld) [#/Vol]Ordere d By: Zoey Ramirez on 08-17-2022 WBC (Bld) [#/Vol] 9.9 10*3/uL 3.8-11.6 [facility] Established Visit (Orthopaed ic Surgery)on [...] to do her outpatient physical therapy at [facility]. She has a few visits left. She [...] persist related to the Dragon software Merrill Aeljandro PA-C . Active Problems Problems Acute pain [...] on 07-23-2022 Albumin [Mass/Vol] 3.3 g/dL 2.9-4.4 [facility] Creatine kinase [Enzymatic a ctivity/volume] in Serum or PlasmaOrdered By: Lorrie Baig on 07-23-2022 CK [Catalytic activity/Vol] 51 U/L 30-223 [facility] Erythrocyte sedimentation ra te by Photometric methodOrdered By: Lorrie Baig on 07-23-2022 ESR Photometric method (Bld) [Velocity] 65 mm/hr 0-29 [facility] Folate [Mass/volume] in Seru m or PlasmaOrdered By: Lorrie Baig on 07-23-2022 Folate [Mass/Vol] 12.8 ng/mL >5.9 [facility] Comment on above: Folate reference ran ge: >5.9 ng/mlThe WHO technical consultation on folate and vitamin [id number] has determined that folate concentrations lessthan 4 ng/ml are considered deficient. Magnesium [Mass/volume] in S hugo or PlasmaOrdered By: Lorrie Baig on 07-23-2022 Magnesium [Mass/Vol] 1.8 mg/dL 1.9-2.7 [facility] No Panel InformationOrdered By: Lorrie Baig on 07-23-2022 Protein Electrophoresis Interpret See comment . [facility] Comment on above: Faint band in gamma region suspicious for monoclonalimmunoglobulin. This band may represent a benign spike asseen in older people or could be a paraprotein as seen inMultiple Myeloma, Waldenstrom's Macroglobulinemia orLymphoma. Depending on clinical circumstances, furtherdiagnostic studies may include serum immunofixation orserum free light chain quantitation.Performed at: [place] [id number] Director: Jeyson Duncan PhD, Phone: [phone] Protein Electrophoresis M-Antwan Comment: g/dL Not Observed [facility] Comment on above: ASYMMETRICAL GAMMA Protein Electrophoresis Note See comment . [facility] Comment on above: Protein electrophore sis scan will follow via computer,mail, or induction coordination power engineer delivery. Phosphate [Mass/volume] in S hugo or PlasmaOrdered By: Lorrie Baig on 07-23-2022 Phosphate [Mass/Vol] 4.5 mg/dL 3.7-7.2 [facility] Protein [Mass/volume] in Ser um or PlasmaOrdered By: Lorrie Baig on 07-23-2022 Protein [Mass/Vol] 7.2 g/dL 6.0-8.5 [facility] Serum globulin measurement ( mass/volume)Ordered By: Lorrie Baig on 07-23-2022 Globulin (S) [Mass/Vol] 3.9 g/dL 2.2-3.9 [facility] Serum or plasma albumin/glob ulin mass ratioOrdered By: Lorrie Baig on 07-23-2022 Albumin/Globulin [Mass ratio] 0.8 {ratio} 0.7-1.7 [facility] Serum or plasma alpha 1 glob ulin measurement by electrophoresis (mass/volume)Ordered By: Lorrie Baig on 07-23-2022 Alpha 1 globulin Elph [Mass/Vol] 0.3 g/dL 0.0-0.4 [facility] Serum or plasma alpha 2 glob ulin measurement by electrophoresis (mass/volume)Ordered By: Lorrie Baig on 07-23-2022 Alpha 2 globulin Elph [Mass/Vol] 0.7 g/dL 0.4-1.0 [facility] Serum or plasma beta globuli n measurement by electrophoresis (mass/volume)Ordered By: Lorrie Baig on 07-23-2022 Beta globulin Elph [Mass/Vol] 1.2 g/dL 0.7-1.3 [facility] Serum or plasma gamma globul in measurement by electrophoresis (mass/volume)Ordered By: Lorrie Baig on 07-23-2022 Gamma globulin Elph [Mass/Vol] 1.7 g/dL 0.4-1.8 [facility] Thyrotropin [Units/volume] i n Serum or PlasmaOrdered By: Lorrie Baig on 07-23-2022 TSH Qn 4.76 m[IU]/L 0.45-5.33 [facility] Vitamin B12 ser/plasOrdered By: Lorrie Baig on 07-23-2022 Cobalamin (Vitamin B12) [Mass/Vol] 358 pg/mL 180-914 [facility] KNEE 3 VIEWSon 07-14-2022 KNEE 3 VIEWS Patient Name: GEETA SHELTON STUDY: KNEE; 3 VIEWS; Right; 07/14/2022 8:47 am INDICATION: pain Z96.659: Status post total knee replacement. ACCESSION NUMBER(S): [id number] ORDERING CLINICIAN: ACOSTA SCHAFRE FINDINGS: Right knee three views. Status post revision type total knee replacement components in good position no signs of fracture dislocation or other bony abnormality dee in the soft tissues anteriorly. Electronically signed by: ACOSTA SCHAFER MD [facility] Post Op (Orthopaedic Surgery )on 07-14-2022 Post [...] she will most likely do this at [facility] in [place]. Physical exam General: No acute distress and [...] Diagnostics Please see dictated x-ray report Procedure [place] removed Steri-Strips placed without complication Assessment Status [...] grammatical areas may persist related to the Therma Flite software Merrill Alejandro PA-C . Active Problems Problems Acute pain of both knees (338.19,719.46) (M25.561,M25.562) Status post total knee replacement (V43.65) (Z96.659) Allergies Medication Penicillins Recorded By: Tarsha Murray; 05/18/2022 8:47:33 AM Current Meds Medication NameInstruction Xarelto 10 MG Oral TabletTake 1 tablet daily Results/Data Xray Knee 3 [id number] 08:47AMSAcosta steward Test NameResultFlagReference Xray Knee 3 View(Report) FINAL REPORT Interpreted by: ACOSTA SCHAFER BURTON, MD 07/14/22 08:49 Patient Name: GEETA SHELTON STUDY: KNEE; 3 VIEWS; Right; 07/14/2022 8:47 am INDICATION: pain Z96.659: Status post total knee replacement. ACCESSION NUMBER(S): [id number] ORDERING CLINICIAN: ACOSTA SCHAFER FINDINGS: Right knee [...] Radiologyon 07-14-2022 XR Knee 3 Views Normal -[place] [facility] Work Phone: Basic Metabolic Panel Reflex Mgon 07-03-2022 Anion gap [Moles/Vol] 10 mmol/L Normal 9-15 [facility] Comment on above: Performed By: #### B MPX #### [facility] [address] [place] [address] Calcium [Mass/Vol] 9.2 mg/dL Normal 8.5-9.9 [facility] Comment on above: Performed By: #### B MPX #### [facility] [address] [place] [address] Chloride [Moles/Vol] 100 mmol/L Normal 95-107 [facility] Comment on above: Performed By: #### B MPX #### [facility] [address] [place] [address] CO2 [Moles/Vol] 27 mmol/L Normal 20-31 [facility] Comment on above: Performed By: #### B MPX #### [facility] [address] [place] [address] Creatinine [Mass/Vol] 0.51 mg/dL Normal 0.50-0.90 [facility] Comment on above: Performed By: #### B MPX #### [facility] [address] [place] [address] GFR >60.0 Normal >60 [facility] Comment on above: Result Comment: Pedi atric [...] secretion. Performed By: #### B MPX #### [facility] [address] [place] [address] Glucose [Mass/Vol] 132 mg/dL Critically high 70-99 [facility] Comment on above: Performed By: #### B MPX #### [facility] [address] [place] [address] Magnesium [Moles/Vol] 4.6 mmol/L Normal 3.4-4.9 [facility] Comment on above: Performed By: #### B MPX #### [facility] [address] [place] [address] Sodium [Moles/Vol] 137 mmol/L Normal 135-144 [facility] Comment on above: Performed By: #### B MPX #### [facility] [address] [place] [address] Urea nitrogen [Mass/Vol] 12 mg/dL Normal 6-20 [facility] Comment on above: Performed By: #### B MPX #### [facility] [address] [place] [address] Basic Metabolic Panel w/ Ref hillary to MGon 07-03-2022 Anion gap [Moles/Vol] 10 mmol/L [facility] Calcium [Mass/Vol] 9.2 mg/dL 8.5 - 9.9 mg/dL [facility] [facility] Chloride [Moles/Vol] 100 mmol/L [facility] CO2 [Moles/Vol] 27 mmol/L [facility] Creatinine [Mass/Vol] 0.51 mg/dL 0.50 - 0.90 mg/dL [facility] GFR/1.73 sq M.predicted MDRD (S/P/Bld) [Vol rate/Area] [...] 132 mg/dL High 70 - 99 mg/dL [facility] Interpretation and review of laboratory results Abnormal [facility] Potassium reflex Magnesium 4.6 [facility] Sodium [Moles/Vol] 137 mmol/L [facility] Urea nitrogen (BldV) [Mass/Vol] 12 mg/dL 6 - 20 mg/dL [facility] CBCon 07-03-2022 Hematocrit (Bld) [Volume fraction] [...] [facility]ICAL [facility]ENTER RBC (Bld) [#/Vol] 5.02 10*6/uL [facility] WBC (Bld) [#/Vol] 9.2 10*3/uL 4.8 - 10.8 K/uL [facility] CBC With Platelet No Differe ntialon 07-03-2022 Erythrocyte distribution width (RBC) [Ratio] 16.5 % Critically high 11.5-14.5 [facility] Comment on above: Performed By: #### C BCND #### [facility] [address] [place] [address] Hematocrit (Bld) [Volume fraction] 39.9 % Normal 37.0-47.0 [facility] Comment on above: Performed By: #### C BCND #### [facility] [address] [place] [address] Hemoglobin (Bld) [Mass/Vol] 12.9 g/dL Normal 12.0-16.0 [facility] Comment on above: Performed By: #### C BCND #### [facility] [address] [place] [address] MCH (RBC) [Entitic mass] 25.7 pg Low 27.0-31.3 [facility] Comment on above: Performed By: #### C BCND #### [facility] [address] [place] [address] MCHC 32.3 % Low 33.0-37.0 [facility] Comment on above: Performed By: #### C BCND #### [facility] [address] [place] [address] MCV (RBC) [Entitic vol] 79.6 fL Normal 79.4-94.8 [facility] Comment on above: Performed By: #### C BCND #### [facility] [address] [place] [address] Platelets (Bld) [#/Vol] 230 10*3/uL Normal 130-400 [facility] Comment on above: Performed By: #### C BCND #### [facility] [address] [place] [address] RBC (Bld) [#/Vol] 5.02 10*6/uL Normal 4.20-5.40 [facility] Comment on above: Performed By: #### C BCND #### [facility] [address] [place] [address] WBC (Bld) [#/Vol] 9.2 10*3/uL Normal 4.8-10.8 [facility] Comment on above: Performed By: #### C BCND #### [facility] [address] [place] [address] Basic Metabolic Panel Reflex Mgon 07-02-2022 Anion gap [Moles/Vol] 8 mmol/L Low 9-15 [facility] Comment on above: Order Comment: Colle ction has been rescheduled by VALDO at 07/02/2022 05:49 Reason: Come back last per lauren reinoso Performed By: #### B MPX #### [facility] [address] [place] [address] Calcium [Mass/Vol] 8.9 mg/dL Normal 8.5-9.9 [facility] Comment on above: Order Comment: Daja zamarripa has been rescheduled by HERAM at 07/02/2022 05:49 Reason: Come back last per rn fouzia Performed By: #### B MPX #### [facility] [address] [place] [address] Chloride [Moles/Vol] 100 mmol/L Normal 95-107 [facility] Comment on above: Order Comment: Daja zamarripa has been rescheduled by HERAM at 07/02/2022 05:49 Reason: Come back last per rn fouzia Performed By: #### B MPX #### [facility] [address] [place] [address] CO2 [Moles/Vol] 27 mmol/L Normal 20-31 [facility] Comment on above: Order Comment: Daja zamarripa has been rescheduled by HERAM at 07/02/2022 05:49 Reason: Come back last per rn fouzia Performed By: #### B MPX #### [facility] [address] [place] [address] Creatinine [Mass/Vol] 0.61 mg/dL Normal 0.50-0.90 [facility] Comment on above: Order Comment: Daja zamarripa has been rescheduled by HERAM at 07/02/2022 05:49 Reason: Come back last per rn fouzia Performed By: #### B MPX #### [facility] [address] [place] [address] GFR >60.0 Normal >60 [facility] Comment on above: Order Comment: Daja zamarripa [...] secretion. Performed By: #### B MPX #### [facility] [address] [place] [address] Glucose [Mass/Vol] 144 mg/dL Critically high 70-99 [facility] Comment on above: Order Comment: Daja zamarripa has been rescheduled by HERMICHELLE at 07/02/2022 05:49 Reason: Come back last per lauren reinoso Performed By: #### B MPX #### [facility] [address] [place] [place] [address] Magnesium [Moles/Vol] 4.8 mmol/L Normal 3.4-4.9 [facility] Comment on above: Order Comment: Daja zamarripa has been rescheduled by HERMICHELLE at 07/02/2022 05:49 Reason: Come back last per rn fouzia Performed By: #### B MPX #### [facility] [address] [place] [address] Sodium [Moles/Vol] 135 mmol/L Normal 135-144 [facility] Comment on above: Order Comment: Daja zamarripa has been rescheduled by HERMICHELLE at 07/02/2022 05:49 Reason: Come back last per lauren reinoso Performed By: #### B MPX #### [facility] [address] [place] [address] Urea nitrogen [Mass/Vol] 21 mg/dL Critically high 6-20 [facility] Comment on above: Order Comment: Daja zamarripa has been rescheduled by HERAM at 07/02/2022 05:49 Reason: Come back last per lauren reinoso Performed By: #### B MPX #### [facility] [address] [place] [address] Basic Metabolic Panel w/ Ref hillary to MGon 07-02-2022 Anion gap [Moles/Vol] 8 mmol/L Low [facility] Calcium [Mass/Vol] 8.9 mg/dL 8.5 - 9.9 mg/dL [facility] Chloride [Moles/Vol] 100 mmol/L [facility] CO2 [Moles/Vol] 27 mmol/L [facility] Creatinine [Mass/Vol] 0.61 mg/dL 0.50 - 0.90 mg/dL [facility] [...] 144 mg/dL High 70 - 99 mg/dL [facility] Interpretation and review of laboratory results Abnormal [facility] Potassium reflex Magnesium 4.8 [facility] Sodium [Moles/Vol] 135 mmol/L [facility] Urea nitrogen (BldV) [Mass/Vol] 21 mg/dL High 6 - 20 mg/dL [facility] Collection has been rescheduled by VALDO at 07/02/2022 05:49 Reason: Come back last per lauren galdamezfouzia [facility] CBCon 07-02-2022 [...] MEDICAL CENTER RBC (Bld) [#/Vol] 5.06 10*6/uL [facility] WBC (Bld) [#/Vol] 9.1 10*3/uL 4.8 - 10.8 K/uL [facility] Collection has been rescheduled by HERMICHELLE at 07/02/2022 05:49 Reason: Come back last per lauren reinoso [facility] CBC With Platelet No Differe ntialon 07-02-2022 Erythrocyte distribution width (RBC) [Ratio] 16.3 % Critically high 11.5-14.5 [facility] Comment on above: Order Comment: Daja zamarripa has been rescheduled by VALDO at 07/02/2022 05:49 Reason: Come back last per lauren reinoso Performed By: #### C BCND #### [facility] [address] [facility] [address] Hematocrit (Bld) [Volume fraction] 40.3 % Normal 37.0-47.0 [facility] Comment on above: Order Comment: Daja zamarripa has been rescheduled by VALDO at 07/02/2022 05:49 Reason: Come back last per lauren reinoso Performed By: #### C BCND #### [facility] [address] [facility] [address] [facility] [address] Hemoglobin (Bld) [Mass/Vol] 12.9 g/dL Normal 12.0-16.0 [facility] Comment on above: Order Comment: Daja ctjanie has been rescheduled by VALDO at 07/02/2022 05:49 Reason: Come back last per lauren reinoso Performed By: #### C BCND #### [facility] [address] [place] [address] MCH (RBC) [Entitic mass] 25.5 pg Low 27.0-31.3 [facility] Comment on above: Order Comment: Daja ctjanie has been rescheduled by HERAM at 07/02/2022 05:49 Reason: Come back last per rn fouzia Performed By: #### C BCND #### [facility] [address] [place] [address] MCHC 32.1 % Low 33.0-37.0 [facility] Comment on above: Order Comment: Daja ctjanie has been rescheduled by HERAM at 07/02/2022 05:49 Reason: Come back last per rn fouzia Performed By: #### C BCND #### [facility] [address] [place] [address] MCV (RBC) [Entitic vol] 79.6 fL Normal 79.4-94.8 [facility] Comment on above: Order Comment: Daja ctjanie has been rescheduled by HERAM at 07/02/2022 05:49 Reason: Come back last per rn fouzia Performed By: #### C BCND #### [facility] [address] [place] [address] Platelets (Bld) [#/Vol] 230 10*3/uL Normal 130-400 [facility] Comment on above: Order Comment: Daja zamarripa has been rescheduled by HERAM at 07/02/2022 05:49 Reason: Come back last per rn fouzia Performed By: #### C BCND #### [facility] [address] [facility] [place] [address] RBC (Bld) [#/Vol] 5.06 10*6/uL Normal 4.20-5.40 [facility] Comment on above: Order Comment: Daja ctjanie has been rescheduled by HERAM at 07/02/2022 05:49 Reason: Come back last per rn fouzia Performed By: #### C BCND #### [facility] [address] [place] [address] WBC (Bld) [#/Vol] 9.1 10*3/uL Normal 4.8-10.8 [facility] Comment on above: Order Comment: Daja zamarripa has been rescheduled by VALDO at 07/02/2022 05:49 Reason: Come back last per rn fouzia Performed By: #### C BCND #### [facility] [address] [place] [address] US DUP UPPER EXTREMITY LEFT VENOUSon 07-02-2022 [...] Jean Sifuentes MD 07/02/[address] [facility] No evidence of DVT. [facility] RAD[facility] EXAMINATION: VENOUS ULTRASOUND OF THE LEFT [...] normal color flow study and spectral analysis. [facility] Jean Sifuentes MD - 07/02/2022 EXAMINATION: [...] spectral analysis. IMPRESSION: No evidence of DVT. [employer] Work Phone: [employer] Phone: Radiology Study observation (narrative) [facility] [employer] [facility] Phone: XR KNEE RIGHT (1-2 VIEWS)on 07-01-2022 [...] Jean Sifuentes MD 07/01/[address] [facility] Normal postsurgical appearance [facility] RAD[facility] EXAMINATION: TWO XRAY VIEWS OF THE [...] are intact. Overlying surgical dee are seen [facility] Jean Sifuentes MD - 07/01/2022 EXAMINATION: [...] dee are seen IMPRESSION: Normal postsurgical appearance [employer] Work Phone: Radiology Study observation (narrative) [employer] Phone: XR KNEE RIGHT (1-2 VIEWS)Ord ered By: Jean Sifuentes on 07-01-2022 [employer] Work Phone: MRSA DNA Probe, Nasalon -0 MRSA, DNA, Nasal Negative NEG [employer] Comment on above: NEGATIVE: MRSA DNA n ot detected by nucleic acid amplification. Results should be used as an adjunct to nosocomial control efforts to identify patients needing enhanced precautions. The test is not intended to identify patients with staphylococcal infections. Results should not be used to guide or monitor treatment for MRSA infections. [facility] [address] [place] [id number] ([phone] Specimen Description Swab [employer] MRSA, DNA, Nasalon MRSA, DNA, Nasal Negative Normal NEG [facility] Comment on above: Result Comment: NEGA TIVE: MRSA DNA not detected by nucleic acid amplification. Results should be used as an adjunct to nosocomial control efforts to identify patients needing enhanced precautions. The test is not intended to identify patients with staphylococcal infections. Results should not be used to guide or monitor treatment for MRSA infections. [employer] [address] [place] [address] [phone] Performed By: #### I MRSA #### [facility] [address] [place] [address] EKG 12 LeadOrdered By: Leigh Ann Nash on 06-25-2022 Atrial Rate 73 BPM [employer] Work Phone: P [place] 33 degrees [employer] Work Phone: P-R Interval 160 ms [employer] Work Phone: Q-T Interval 406 ms [employer] Work Phone: QRS Duration 102 ms [employer] Work Phone: QTc Calculation (Bazett) 447 ms [employer] Work Phone: R [place] 74 degrees [employer] Phone: T [place] 65 degrees [employer] Work Phone: Ventricular Rate 73 BPM [facility] [employer] Work Phone: [employer] Work Phone: EKG 12 Leadon 06-25-2022 Normal sinus rhythm Incomplete right bundle branch block Confirmed by LEIGH ANN NASH ([id number]) on 06/25/2022 6:49:48 PM Leigh Ann Sumner, DO - 06/25/2022 Normal sinus rhythm Incomplete right bundle branch block Confirmed by LEIGH ANN NSAH ([id number]) on 06/25/2022 6:49:48 PM [employer] Work Phone: Established Visit (Orthopaed ic Surgery)on [...] plans on performing outpatient physical therapy at [facility] in [place]. All of the patient's questions and concerns [...] today's treatment with some difficulty. Evaluation Code: 07939 PT Eval: Low Complexity, 32 min(s). Resources provided today: education Signatures Electronically signed by : Natali Tyson, PT DPT; Jun 30 2022 10:08AM EST (Author) Normal [facility] APTTon 06-24-2022 aPTT Coag (Bld) [Time] 30.1 s YECENIA Nohelia [facility] Comment on above: Effective 02/27/2020: Heparin Therapeutic Range: 64.0 98.0 seconds. [facility] CBC With Platelet and Differ entialon 06-24-2022 Basophils (Bld) [#/Vol] 0.1 10*3/uL Normal 0.0-0.2 [facility] Comment on above: Performed By: #### C BCWD #### [facility] [address] [place] [address] Basophils/100 WBC (Bld) 0.6 % Normal [facility] Comment on above: Performed By: #### C BCWD #### [facility] [address] [place] [address] Eosinophils (Bld) [#/Vol] 0.1 10*3/uL Normal 0.0-0.7 [facility] Comment on above: Performed By: #### C BCWD #### [facility] [address] [place] [address] Eosinophils/100 WBC (Bld) 1.6 % Normal [facility] Comment on above: Performed By: #### C BCWD #### [facility] [address] [place] [address] Erythrocyte distribution width (RBC) [Ratio] 16.4 % Critically high 11.5-14.5 [facility] Comment on above: Performed By: #### C BCWD #### [facility] [address] [place] [address] Hematocrit (Bld) [Volume fraction] 44.4 % Normal 37.0-47.0 [facility] Comment on above: Performed By: #### C BCWD #### [facility] [address] [place] [address] Hemoglobin (Bld) [Mass/Vol] 14.2 g/dL Normal 12.0-16.0 [facility] Comment on above: Performed By: #### C BCWD #### [facility] [address] [place] [address] Lymphocytes (Bld) [#/Vol] 2.3 10*3/uL Normal 1.0-4.8 [facility] Comment on above: Performed By: #### C BCWD #### [facility] [address] [place] [address] Lymphocytes/100 WBC (Bld) 25.8 % Normal [facility] Comment on above: Performed By: #### C BCWD #### [facility] [address] [place] [address] MCH (RBC) [Entitic mass] 25.1 pg Low 27.0-31.3 [facility] Comment on above: Performed By: #### C BCWD #### [facility] [address] [place] [address] MCHC 32.0 % Low 33.0-37.0 [facility] Comment on above: Performed By: #### C BCWD #### [facility] [address] [place] [address] MCV (RBC) [Entitic vol] 78.5 fL Low 79.4-94.8 [facility] Comment on above: Performed By: #### C BCWD #### [facility] [address] [place] [address] Monocytes (Bld) [#/Vol] 0.8 10*3/uL Normal 0.2-0.8 [facility] Comment on above: Performed By: #### C BCWD #### [facility] [address] [place] [address] Monocytes/100 WBC (Bld) 9.4 % Normal [facility] Comment on above: Performed By: #### C BCWD #### [facility] [address] [place] [address] Neutrophils (Bld) [#/Vol] 5.6 10*3/uL Normal 1.4-6.5 [facility] Comment on above: Performed By: #### C BCWD #### [facility] [address] [place] [address] Neutrophils/100 WBC (Bld) 62.6 % Normal [facility] Comment on above: Performed By: #### C BCWD #### [facility] [address] [place] [address] Platelets (Bld) [#/Vol] 281 10*3/uL Normal 130-400 [facility] Comment on above: Performed By: #### C BCWD #### [facility] [address] [place] [address] RBC (Bld) [#/Vol] 5.66 10*6/uL Critically high 4.20-5.40 [facility] Comment on above: Performed By: #### C BCWD #### [facility] [address] [place] [address] WBC (Bld) [#/Vol] 8.9 10*3/uL Normal 4.8-10.8 [facility] Comment on above: Performed By: #### C BCWD #### [facility] [address] [place] [address] CBC with Auto Differentialon 06-24-2022 Basophils (Bld) [#/Vol] 0.1 10*3/uL 0.0 - 0.2 K/uL [facility] Basophils/100 WBC (Bld) 0.6 % [facility] Eosinophils (Bld) [#/Vol] 0.1 10*3/uL 0.0 - 0.7 K/uL [facility] Eosinophils/100 WBC (Bld) 1.6 % [facility] Hematocrit (Bld) [Volume fraction] 44.4 % 37.0 - 47.0 % [facility] Hemoglobin (Bld) [Mass/Vol] 14.2 g/dL 12.0 - 16.0 g/dL [facility] Interpretation and review of laboratory results Abnormal [facility] Lymphocytes (Bld) [#/Vol] 2.3 10*3/uL 1.0 - [...] CENTER Monocytes/100 WBC (Bld) 9.4 % B [facility] Neutrophils Absolute 5.6 K/uL 1.4 - 6 .5 K/uL [facility] Neutrophils/100 WBC (Bld) 62.6 % [facility] Platelet distribution width (Bld) [Ratio] 16.4 % High 11.5 - 14.5 % [facility] Platelets (Bld) [#/Vol] 281 10*3/uL 130 - 400 K/uL [facility] RBC (Bld) [#/Vol] 5.66 10*6/uL High [facility] WBC (Bld) [#/Vol] 8.9 10*3/uL 4.8 - 10.8 K/uL [facility] Comprehensive Metabolic Pane gretel 06-24-2022 Albumin [Mass/Vol] 4.2 g/dL Normal 3.5-4.6 [facility] Comment on above: Performed By: #### U MARIA ELENA #### [facility] [address] [place] [address] ALP [Catalytic activity/Vol] 89 U/L Normal 40-130 [facility] Comment on above: Performed By: #### U MARIA ELENA #### [facility] [address] [place] [address] ALT [Catalytic activity/Vol] 47 U/L Critically high 0-33 [facility] Comment on above: Performed By: #### U MARIA ELENA #### [facility] [address] [place] [address] Anion gap [Moles/Vol] 13 mmol/L Normal 9-15 [facility] Comment on above: Performed By: #### U MARIA ELENA #### [facility] [address] [place] [address] AST [Catalytic activity/Vol] 44 U/L Critically high 0-35 [facility] Comment on above: Performed By: #### U MARIA ELENA #### [facility] [address] [place] [address] Bilirubin [Mass/Vol] 0.5 mg/dL Normal 0.2-0.7 [facility] Comment on above: Performed By: #### U MARIA ELENA #### [facility] [address] [place] [address] Calcium [Mass/Vol] 9.2 mg/dL Normal 8.5-9.9 [facility] Comment on above: Performed By: #### U MARIA ELENA #### [facility] [address] [place] [address] Chloride [Moles/Vol] 100 mmol/L Normal 95-107 [facility] Comment on above: Performed By: #### U MARIA ELENA #### [facility] [address] [place] [address] CO2 [Moles/Vol] 26 mmol/L Normal 20-31 [facility] Comment on above: Performed By: #### U MARIA ELENA #### [facility] [address] [place] [address] Creatinine [Mass/Vol] 0.54 mg/dL Normal 0.50-0.90 [facility] Comment on above: Performed By: #### U MARIA ELENA #### [facility] [address] [place] [address] GFR >60.0 Normal >60 [facility] Comment on above: Result Comment: Myra camarac [...] Performed By: #### U MARIA ELENA #### [facility] [address] [place] [address] Globulin (S) [Mass/Vol] 3.9 g/dL Critically high 2.3-3.5 [facility] Comment on above: Performed By: #### U MARIA ELENA #### [facility] [address] [place] [address] Glucose [Mass/Vol] 124 mg/dL Critically high 70-99 [facility] Comment on above: Performed By: #### U MARIA ELENA #### [facility] [address] [place] [address] Potassium [Moles/Vol] 4.4 mmol/L Normal 3.4-4.9 [facility] Comment on above: Performed By: #### U MARIA ELENA #### [facility] [address] [place] [address] Protein [Mass/Vol] 8.1 g/dL Critically high 6.3-8.0 [facility] Comment on above: Performed By: #### U MARIA ELENA #### [facility] [address] [place] [address] Sodium [Moles/Vol] 139 mmol/L Normal 135-144 [facility] Comment on above: Performed By: #### U MARIA ELENA #### [facility] [address] [place] [address] Urea nitrogen [Mass/Vol] 14 mg/dL Normal 6-20 [facility] Comment on above: Performed By: #### U MARIA ELENA #### [facility] [address] [place] [address] Albumin [Mass/Vol] 4.2 g/dL 3.5 - 4.6 [...] [facility] CO2 [Moles/Vol] 26 mmol/L [facility] Creatinine [Mass/Vol] 0.54 mg/dL 0.50 - [...] [facility] Sodium [Moles/Vol] 139 mmol/L [facility] Urea nitrogen (BldV) [Mass/Vol] 14 mg/dL 6 - 20 mg/dL [facility] Laboratory - Coagulationon 0 06-24-2022 INR Coag (Bld) [Relative time] 1.1 {INR} [facility] Work Phone: Laboratory - Hematology and Cell countson 06-24-2022 Basophils/100 WBC (Bld) 0.6 % [facility] Work Phone: Eosinophils/100 WBC (Bld) 1.6 % Normal [facility] Work Phone: Lymphocytes/100 WBC (Bld) 25.8 % Normal [facility] Work Phone: Monocytes/100 WBC (Bld) 9.4 % Normal [facility] Work Phone: Neutrophils/100 WBC (Bld) 62.6 % Normal [facility] Work Phone: MRSA, DNA, Nasalon 3 Specimen Description Swab Normal [facility] Comment on above: Performed By: #### I MRSA #### [facility] [address] [place] [address] Microscopic Urinalysison Bacteria, UA FEW Abnormal Negative /HPF [facility] Epithelial Cells, UA 0-2 [facility] Hyaline Casts, UA 0-1 [facility] RBC, UA 0-2 [facility] WBC, UA 3-5 [facility] No Panel Informationon 06-24 Interpretation and review of laboratory results Abnormal [facility] TRACE Abnormal Negative [facility] Work Phone: [phone] Negative Normal Negative [facility] Work Phone: [phone] 0.2 {E.U./dL} Normal < 2.0 [facility] Work Phone: [phone] 30 mg/dL Abnormal Negative [facility] Work Phone: [phone] 7.0 1 Normal 5.0-9.0 [facility] Work Phone: [phone] Not Indicated Normal [facility] Work Phone: [phone] 1.010 1 Normal 1.005-1.03 [facility] Work Phone: [phone] Clear Normal Clear [facility] Work Phone: [phone] Yellow Normal Straw/[place] [facility] Work Phone: [phone] 0-2 Normal 0-5 [facility] Work Phone: [phone] 3-5 Normal 0-5 [facility] Work Phone: [phone] 0-1 Normal 0-5 [facility] Work Phone: [phone] FEW Abnormal Negative [facility] Work Phone: [phone] K/uL Normal 130-400 [facility] Work Phone: [phone] 16.4 % above high threshold 11.5-14.5 [facility] Work Phone: [phone] 32.0 % below low threshold 33.0-37.0 [facility] Work Phone: [phone] 0.1 K/uL Normal 0.0-0.2 [facility] Work Phone: [phone] 0.8 K/uL Normal 0.2-0.8 [facility] Work Phone: [phone] 2.3 K/uL Normal 1.0-4.8 [facility] Work Phone: [phone] 5.6 K/uL Normal 1.4-6.5 [facility] Work Phone: [phone] 25.1 pg below low threshold 27.0-31.3 [facility] Work Phone: [phone] 78.5 fL below low threshold 79.4-94.8 [facility] Work Phone: 44.4 % Normal 37.0-47.0 [facility] Work Phone: 14.2 g/dL Normal 12.0-16.0 [facility] Work Phone: [phone] 5.66 {M/uL} above high threshold 4.20-5.40 [facility] Work Phone: [phone] 8.9 K/uL Normal 4.8-10.8 [facility] Work Phone: 14.8 {sec} Normal 12.3-14.9 [facility] Work Phone: 30.1 {sec} Normal 24.4-36.8 [facility] Work Phone: Comment on above: Effective 02/27/2020: Heparin Therapeutic Range: 64.0 ? 98.0 seconds. 4.2 g/dL Normal 3.5-4.6 [facility] Work Phone: [phone] 3.9 g/dL above high threshold 2.3-3.5 [facility] Work Phone: [phone] U/L above high threshold 0-35 [facility] [...] [facility] Work Phone: 4.4 {mEq/L} Normal 3.4-4.9 [facility] Work Phone: 139 {mEq/L} Normal 135-144 [facility]: Negative Normal NEG [facility] Work Phone: Comment on above: NEGATIVE: MRSA DNA n ot detected by nucleic acid amplification. Results should be used as an adjunct to nosocomial control efforts toidentify patients needing enhanced precautions.The test is not intended to identify patients with staphylococcalinfections. Results should not be used to guide or monitor treatmentfor MRSA infections.[address] [address] ([phone] Swab Normal [facility] Work Phone: Partial Thromboplastin Timeo n 06-24-2022 aPTT Coag (Bld) [Time] 30.1 s Normal 24.4-36.8 [facility] Comment on above: Result Comment: Effe ctive 02/27/2020: Heparin Therapeutic Range: 64.0 ? 98.0 seconds. Performed By: #### U MARIA ELENA #### [facility] [address] [facility] [place] [address] Prothrombin Timeon INR Coag (PPP) [Relative time] 1.1 {INR} Normal [facility] Comment on above: Performed By: #### P T #### [facility] [address] [facility] [address] PT Coag (PPP) [Time] 14.8 s Normal 12.3-14.9 [facility] Comment on above: Performed By: #### P T #### [facility] [address] [facility] [address] Protime-INRon 06-24-2022 INR Coag (Bld) [Relative time] 1.1 {INR} [facility] PT Coag (PPP) [Time] 14.8 s [facility] TYPE AND SCREENon 06-24-2022 ABO/Rh Negative [facility] Comment on above: @06/24/22 14:01 by Elaina FISCHER: BACK TYPE CONFIRMED IN TUBE. LMB Confirmation type ne eds to be drawn. [facility] Type and 3 cell Screen OB Ca ptureon 06-24-2022 Type and 3 cell Screen OB Capture PATIENT: PINKY Prince LOC: [place] BILL# : [id number] : 1970 SEX: F ORDERED BY: GILMAR COX ORDERED : 06/24/2022 11:08 COLLECTED: 06/24/2022 11:45 ORDER : [id number] RECEIVED : 06/24/2022 11:45 Confirmation type needs to be drawn. --- TEST NAME RESULT UNITS RANGES ABN FL ST [facility]ORH Capture A NEG F @06/24/22 14:01 by RUDY: BACK TYPE CONFIRMED IN TUBE. LMB Antibody 3 Cell Scrn Captu NEG F -- Normal [facility] Comment on above: Performed By: #### T SO3C #### [facility] [address] [facility] [place] [address] Urinalysis with Reflex to Cu ltureon 06-24-2022 Bilirubin Urine Negative Negative [facility] Blood, Urine Negative Negative [facility] Clarity, UA Clear Clear [facility] Color, UA Yellow Straw/[place] ow [facility] Glucose, Ur Negative Negative mg/dL [facility] Ketones Ql (U) Negative Negative mg/dL [facility] Leukocyte esterase Test strip Ql (U) TRACE Abnormal Negative [facility] Nitrite, Urine Negative Negative [facility] pH, UA 7.0 5.0 - 9.0 [facility] Protein (U) [Mass/Vol] 30 mg/dL Abnormal Negative [facility] Specific [place], UA 1.010 1.005 - 1.030 [facility] Urine Reflex to Culture Not Indicated [facility] Urobilinogen, Urine 0.2 NINF [facility] Urinalysis, reflex to cultur gurinder 06-24-2022 Urine Reflexed to Culture Not Indicated Normal [facility] Comment on above: Performed By: #### U AR #### [facility] [address] [place] [address] Bilirubin Ql (U) Negative Normal Negative [facility] Comment on above: Performed By: #### U AR #### [facility] [address] [place] [address] Clarity (U) Clear Normal Clear [facility] Comment on above: Performed By: #### U AR #### [facility] [address] [place] [address] Color (U) Yellow Normal Straw/[place]co [facility] Comment on above: Performed By: #### U AR #### [facility] [address] [place] [address] Glucose Ql (U) Negative Normal Negative [facility] Comment on above: Performed By: #### U AR #### [facility] [address] [place] [address] Hemoglobin Ql (U) Negative Normal Negative [facility] Comment on above: Performed By: #### U AR #### [facility] [address] [place] [address] Ketones Ql (U) Negative Normal Negative [facility] Comment on above: Performed By: #### U AR #### [facility] [address] [place] [address] Leukocyte esterase Test strip Ql (U) TRACE Abnormal Negative [facility] Comment on above: Performed By: #### U AR #### [facility] [address] [place] [address] Nitrite Ql (U) Negative Normal Negative [facility] Comment on above: Performed By: #### U AR #### [facility] [address] [place] [address] pH (U) 7.0 [pH] Normal 5.0-9.0 [facility] Comment on above: Performed By: #### U AR #### [facility] [address] [place] [address] Protein Ql (U) 30 mg/dL Abnormal Negative [facility] Comment on above: Performed By: #### U AR #### [facility] [address] [place] [address] Specific gravity (U) [Rel density] 1.010 Normal 1.005-1.03 [facility] Comment on above: Performed By: #### U AR #### [facility] [address] [place] [address] Urobilinogen Qn (U) 0.2 {Reji'U}/dL Normal < 2.0 [facility] Comment on above: Performed By: #### U AR #### [facility] [address] [place] [address] Urine Microscopicon 06-25-19 23 Urine Bacteria FEW Abnormal Negative [facility] Comment on above: Performed By: #### U MARIA ELENA #### [facility] [address] [place] [address] Urine Epithelial Cells Auto 0-2 Normal 0-5 [facility] Comment on above: Performed By: #### U MARIA ELENA #### [facility] [address] [place] [address] Urine Hyaline Casts Auto 0-1 Normal 0-5 [facility] Comment on above: Performed By: #### U MARIA ELENA #### [facility] [address] [place] [address] Urine RBC Auto 0-2 Normal 0-5 [facility] Comment on above: Performed By: #### U MARIA ELENA #### [facility] [address] [place] [address] Urine WBC Auto 3-5 Normal 0-5 [facility] Comment on above: Performed By: #### U MARIA ELENA #### [facility] [address] [place] [address] BILATERAL KNEE COMPLT, 4 OR MORE VIEWSon 05-18-2022 BILATERAL KNEE COMPLT, 4 OR MORE VIEWS Patient Name: GEETA SHELTON STUDY: BILATERAL KNEE; COMPLT, 4 OR MORE VIEWS; ; 05/18/2022 9:07 am INDICATION: pain M25.561: Acute pain of both knees M25.562:. ACCESSION NUMBER(S): [id number] ORDERING CLINICIAN: ACOSTA SCHAFER FINDINGS: Weightbearing four [...] Electronically signed by: ACOSTA SCHAFER MD Normal [facility] Initial Visit (Orthopaedic S urgery)on 05-18-2022 Initial [...] voice recognition (more content not included)... Normal [facility] Radiologyon 05-18-2022 XR Knee 4 Views Normal [facility] Work Phone: Albumin [Mass/volume] in Ser um or PlasmaOrdered By: Elizabeth Alvarado on 05-07-2022 Albumin [Mass/Vol] 3.9 g/dL 3.2-5.5 [facility] Alkaline phosphatase [Enzyma tic activity/volume] in Serum or PlasmaOrdered By: Elizabeth Alvarado on 05-07-2022 ALP [Catalytic activity/Vol] 83 U/L 32-92 [facility] Aspartate aminotransferase [ Enzymatic activity/volume] in Serum or PlasmaOrdered By: Elizabeth Alvarado on 05-07-2022 AST [Catalytic activity/Vol] 56 U/L 10-42 [facility] Basophils Auto (Bld) [#/Vol] Ordered By: Elizabeth Alvarado on 05-07-2022 Basophils (Bld) [#/Vol] 0.1 10*3/uL 0.0-0.2 [facility] Basophils/100 WBC Auto (Bld) Ordered By: Elizabeth Alvarado on 05-07-2022 Basophils/100 WBC (Bld) 0.7 % . [facility] Bilirubin.total [Mass/volume ] in Serum or PlasmaOrdered By: Elizabeth Alvarado on 05-07-2022 Bilirubin [Mass/Vol] 0.6 mg/dL 0.3-1.2 [facility] Calcium [Mass/volume] in Ser um or PlasmaOrdered By: Elizabeth Alvarado on 05-07-2022 Calcium [Mass/Vol] 9.1 mg/dL 8.2-10.2 [facility] Carbon dioxide, total [Moles /volume] in Serum or PlasmaOrdered By: Elizabeth Alvarado on 05-07-2022 CO2 [Moles/Vol] 28.1 mmol/L 22.0-30.0 [facility] Chloride [Moles/volume] in S hugo or PlasmaOrdered By: Elizabeth Alvarado on 05-07-2022 Chloride [Moles/Vol] 100 mmol/L 95-114 [facility] Cholesterol [Mass/volume] in Serum or PlasmaOrdered By: Elizabeth Alvarado on 05-07-2022 Cholesterol [Mass/Vol] 181 mg/dL 140-200 [facility] Comment on above: Chol less than 200 m g/dl low riskChol 201-239 mg/dl borderline riskChol 240 mg/dl and greater high risk Cholesterol in LDL Calc [Mas s/Vol]Ordered By: Elizabeth Alvarado on 05-07-2022 Cholesterol in LDL [Mass/Vol] 102 mg/dL 0-100 [facility] Comment on above: LDL ATP III CLASSIFI CATIONLDL less than 100 mg/dL OptimalLDL 100-129 mg/dL Near or above optimalLDL 130-159 mg/dL Borderline highLDL 160-189 mg/dL HighLDL greater than 189 mg/dL Very high Cholesterol in VLDL Calc [Ma ss/Vol]Ordered By: Elizabeth Alvarado on 05-07-2022 Cholesterol in VLDL [Mass/Vol] 20 mg/dL [facility] Creatinine and Glomerular fi ltration rate.predicted panel (S/P/Bld)Ordered By: Elizabeth Alvarado on 05-07-2022 Creatinine [Mass/Vol] 0.65 mg/dL 0.44-1.[address] [facility] Eosinophils Auto (Bld) [#/Vo l]Ordered By: Elizabeth Alvarado on 05-07-2022 Eosinophils (Bld) [#/Vol] 0.1 10*3/uL 0.0-0.45 [facility] Eosinophils/100 WBC Auto (Bl d)Ordered By: Elizabeth Alvarado on 05-07-2022 Eosinophils/100 WBC (Bld) 1.8 % . [facility] Erythrocyte distribution wid th Auto (RBC) [Ratio]Ordered By: Elizabeth Alvarado on 05-07-2022 Erythrocyte distribution width (RBC) [Ratio] 17.8 % 11.9-15.3 [facility] Estimated glomerular filtrat ion rate (GFR) non- AmericanOrdered By: Elizabeth Alvarado on 05-07-2022 GFR/1.73 sq M.predicted among non-blacks MDRD (S/P/Bld) [Vol rate/Area] > 60 mL/Min [facility] Globulin Calc (S) [Mass/Vol] Ordered By: Elizabeth Alvarado on 05-07-2022 Globulin (S) [Mass/Vol] 3.7 g/dL [facility] Glucose [Mass/volume] in Ser um or PlasmaOrdered By: Elizabeth Alvarado on 05-07-2022 Glucose [Mass/Vol] 137 mg/dL 70-100 [facility] Comment on above: ADA recommended refe rence rangeRandom Glucose Reference Range is dependent on time and content of last meal. Glucose of more than 200 mg/dL in a nonstressed, ambulatory subject supports the diagnosis of Diabetes Mellitus. Hematocrit Auto (Bld) [Volum e fraction]Ordered By: Elizabeth Alvarado on 05-07-2022 Hematocrit (Bld) [Volume fraction] 45.4 % 34.0-46.4 [facility] Hemoglobin [Mass/volume] in BloodOrdered By: Elizabeth Alvarado on 05-07-2022 Hemoglobin (Bld) [Mass/Vol] 14.1 g/dL 11.8-15.4 [facility] Leukocytes [#/volume] correc silverio for nucleated erythrocytes in Blood by Automated counOrdered By: Elizabeth Alvarado on 05-07-2022 WBC corrected for nucl RBC Auto (Bld) [#/Vol] 7.9 10*3/uL 3.8-11.6 [facility] Lymphocytes Auto (Bld) [#/Vo l]Ordered By: Elizabeth Alvarado on 05-07-2022 Lymphocytes (Bld) [#/Vol] 2.4 10*3/uL 1.00-4.8 [facility] Lymphocytes/100 WBC Auto (Bl d)Ordered By: Elizabeth Alvarado on 05-07-2022 Lymphocytes/100 WBC (Bld) 30.9 % . [facility] MCH Auto (RBC) [Entitic mass ]Ordered By: Elizabeth Alvarado on 05-07-2022 MCH (RBC) [Entitic mass] 24.6 pg 24.7-34.3 [facility] MCHC Auto (RBC) [Mass/Vol]Or dered By: Elizabeth Alvarado on 05-07-2022 MCHC (RBC) [Mass/Vol] 31.0 g/dL 32.0-35.[address] [facility] MCV Auto (RBC) [Entitic vol] Ordered By: Elizabeth Alvarado on 05-07-2022 MCV (RBC) [Entitic vol] 79.4 fL 80-100 [facility] Monocytes Auto (Bld) [#/Vol] Ordered By: Elizabeth Alvarado on 05-07-2022 Monocytes (Bld) [#/Vol] 0.7 10*3/uL 0.0-0.8 [facility] Monocytes/100 WBC Auto (Bld) Ordered By: Elizabeth Alvarado on 05-07-2022 Monocytes/100 WBC (Bld) 9.3 % . [facility] Neutrophils Auto (Bld) [#/Vo l]Ordered By: Elizabeth Alvarado on 05-07-2022 Neutrophils (Bld) [#/Vol] 4.5 10*3/uL 1.8-7.7 [facility] Neutrophils/100 WBC Auto (Bl d)Ordered By: Elizabeth Alvarado on 05-07-2022 Neutrophils/100 WBC (Bld) 57.3 % . [facility] No Panel InformationOrdered By: Elizabeth Alvarado on 05-07-2022 Estimated GFR () > 60 mL/Min [facility] Comment on above: GFR estimated refere nce range: According to KDOQI guidelines, <60 ml/min/1.73m2 is sufficient to diagnose a patient with chronic kidney disease. Pharmacy Creatinine Clearance (Chem N/A [facility] Nucleated erythrocytes [Pres ence] in Blood by Automated countOrdered By: Elizabeth Alvarado on 05-07-2022 Nucleated RBC Auto Ql (Bld) 0.1 /100{WBC} 0-0.5 [facility] Platelet mean volume Auto (B ld) [Entitic vol]Ordered By: Elizabeth Alvarado on 05-07-2022 Platelet mean volume (Bld) [Entitic vol] 9.4 fL 6.3-10.7 [facility] Platelets Auto (Bld) [#/Vol] Ordered By: Elizabeth Alvarado on 05-07-2022 Platelets (Bld) [#/Vol] 242 10*3/uL 150-450 [facility] Potassium [Moles/volume] in Serum or PlasmaOrdered By: Elizabeth Alvarado on 05-07-2022 Potassium [Moles/Vol] 4.3 mmol/L 3.5-5.[address] [facility] Protein [Mass/volume] in Ser um or PlasmaOrdered By: Elizabeth Alvarado on 05-07-2022 Protein [Mass/Vol] 7.6 g/dL 6.1-7.9 [facility] RBC Auto (Bld) [#/Vol]Ordere d By: Elizabeth Alvarado on 05-07-2022 RBC (Bld) [#/Vol] 5.72 10*6/uL 3.60-5.00 [facility] Serum or plasma alanine ulloa otransferase measurement without P-5'-P (enzymatic activiOrdered By: Elizabeth Alvarado on 05-07-2022 ALT No additional P-5'-P [Catalytic activity/Vol] 61 U/L 10-60 [facility] Serum or plasma albumin/glob ulin mass ratioOrdered By: Elizabeth Alvarado on 05-07-2022 Albumin/Globulin [Mass ratio] 1.1 {ratio} [facility] Serum or plasma anion gap de terminationOrdered By: Elizabeth Alvarado on 05-07-2022 Anion gap [Moles/Vol] 11.2 mmol/L 6.0-15.0 [facility] Serum or plasma high density lipoprotein (HDL) cholesterol measurementOrdered By: Elizabeth Alvarado on 05-07-2022 Cholesterol in HDL [Mass/Vol] 58 mg/dL 35-85 [facility] Comment on above: HDL CHOL ATP-III CLA SSIFICATION Cardiovascular RiskHDL > or equal to 60 mg/dL LOWHDL < 40 mg/dL HIGH Serum or plasma total choles terol/high density lipoprotein (HDL) cholesterol mass ratOrdered By: Elizabeth Alvarado on 05-07-2022 Cholesterol.total/Choles terol in HDL [Mass ratio] 3.1 {ratio} <5.0 [facility] Sodium [Moles/volume] in Ser um or PlasmaOrdered By: Elizabeth Alvarado on 05-07-2022 Sodium [Moles/Vol] 135 mmol/L 136-146 [facility] TSH DL <= 0.005 mIU/L QnOrde red By: Elizabeth Alvarado on 01-13-2023 TSH Qn 4.21 m[IU]/L 0.45-5.33 [facility] Triglyceride [Mass/volume] i n Serum or PlasmaOrdered By: Elizabeth Alvarado on 05-07-2022 Triglyceride [Mass/Vol] 103 mg/dL 35-149 [facility] Comment on above: TRIG ATP III CLASSIF ICATIONTRIG less than 150 mg/dL NormalTRIG 150-199 mg/dL Borderline highTRIG 200-500 mg/dL High TRIG greater than 500 mg/dL Very highStandard traceable to the Center for Disease Conrtrol and Prevention (CDC) test method. Urea nitrogen [Mass/volume] in Serum or PlasmaOrdered By: Elizabeth Alvarado on 05-07-2022 Urea nitrogen [Mass/Vol] 14 mg/dL 01-15 [facility] WBC Auto (Bld) [#/Vol]Ordere d By: Elizabeth Alvarado on 05-07-2022 WBC (Bld) [#/Vol] 7.9 10*3/uL 3.8-11.6 [facility] Basophils Auto (Bld) [#/Vol] Ordered By: Tyler Villeda on 04-13-2022 Basophils (Bld) [#/Vol] 0.1 10*3/uL 0.0-0.2 [facility] Basophils/100 WBC Auto (Bld) Ordered By: Tyler Villeda on 04-13-2022 Basophils/100 WBC (Bld) 0.6 % . [facility] C reactive protein [Mass/vol ume] in Serum or PlasmaOrdered By: Tyler Villeda on 04-13-2022 CRP [Mass/Vol] 2.1 mg/dL 0.0-1.0 [facility] Eosinophils Auto (Bld) [#/Vo l]Ordered By: Tyler Villeda on 04-13-2022 Eosinophils (Bld) [#/Vol] 0.2 10*3/uL 0.0-0.45 [facility] Eosinophils/100 WBC Auto (Bl d)Ordered By: Tyler Villeda on 04-13-2022 Eosinophils/100 WBC (Bld) 2.0 % . [facility] Erythrocyte distribution wid th Auto (RBC) [Ratio]Ordered By: Tyler Villeda on 04-13-2022 Erythrocyte distribution width (RBC) [Ratio] 17.6 % 11.9-15.3 [facility] Erythrocyte sedimentation ra te by Photometric methodOrdered By: Tyler Villeda on 04-13-2022 ESR Photometric method (Bld) [Velocity] 54 mm/hr 0-29 [facility] Hematocrit Auto (Bld) [Volum e fraction]Ordered By: Tyler Villeda on 04-13-2022 Hematocrit (Bld) [Volume fraction] 44.4 % 34.0-46.4 [facility] Hemoglobin [Mass/volume] in BloodOrdered By: Tyler Villeda on 04-13-2022 Hemoglobin (Bld) [Mass/Vol] 14.3 g/dL 11.8-15.4 [facility] Leukocytes [#/volume] correc silverio for nucleated erythrocytes in Blood by Automated counOrdered By: Tyler Villeda on 04-13-2022 WBC corrected for nucl RBC Auto (Bld) [#/Vol] 8.6 10*3/uL 3.8-11.6 [facility] Lymphocytes Auto (Bld) [#/Vo l]Ordered By: Tyler Villeda on 04-13-2022 Lymphocytes (Bld) [#/Vol] 2.9 10*3/uL 1.00-4.8 [facility] Lymphocytes/100 WBC Auto (Bl d)Ordered By: Tyler Villeda on 04-13-2022 Lymphocytes/100 WBC (Bld) 33.6 % . [facility] MCH Auto (RBC) [Entitic mass ]Ordered By: Tyler Villeda on 04-13-2022 MCH (RBC) [Entitic mass] 24.9 pg 24.7-34.3 [facility] MCHC Auto (RBC) [Mass/Vol]Or dered By: Tyler Villeda on 04-13-2022 MCHC (RBC) [Mass/Vol] 32.2 g/dL 32.0-35.[address] [facility] MCV Auto (RBC) [Entitic vol] Ordered By: Tyler Villeda on 04-13-2022 MCV (RBC) [Entitic vol] 77.4 fL 80-100 [facility] Monocytes Auto (Bld) [#/Vol] Ordered By: Tyler Villeda on 04-13-2022 Monocytes (Bld) [#/Vol] 0.9 10*3/uL 0.0-0.8 [facility] Monocytes/100 WBC Auto (Bld) Ordered By: Tyler Villeda on 04-13-2022 Monocytes/100 WBC (Bld) 10.0 % . [facility] Neutrophils Auto (Bld) [#/Vo l]Ordered By: Tyler Villeda on 04-13-2022 Neutrophils (Bld) [#/Vol] 4.6 10*3/uL 1.8-7.7 [facility] Neutrophils/100 WBC Auto (Bl d)Ordered By: Tyler Villeda on 04-13-2022 Neutrophils/100 WBC (Bld) 53.8 % . [facility] Nucleated erythrocytes [Pres ence] in Blood by Automated countOrdered By: Tyler Villeda on 04-13-2022 Nucleated RBC Auto Ql (Bld) 0.1 /100{WBC} 0-0.5 [facility] Platelet mean volume Auto (B ld) [Entitic vol]Ordered By: Tyler Villeda on 04-13-2022 Platelet mean volume (Bld) [Entitic vol] 9.1 fL 6.3-10.7 [facility] Platelets Auto (Bld) [#/Vol] Ordered By: Tyler Villeda on 04-13-2022 Platelets (Bld) [#/Vol] 296 10*3/uL 150-450 [facility] RBC Auto (Bld) [#/Vol]Ordere d By: Tyler Villeda on 04-13-2022 RBC (Bld) [#/Vol] 5.73 10*6/uL 3.60-5.00 [facility] WBC Auto (Bld) [#/Vol]Ordere d By: Tyler Villeda on 04-13-2022 WBC (Bld) [#/Vol] 8.6 10*3/uL 3.8-11.6 [facility] Serum or plasma follitropin measurement (units/volume)Ordered By: Elizabeth Alvarado on 12-03-2021 Follitropin Qn 18.3 m[IU]/mL [facility] Comment on above: FEMALE NORMALS (JUDIE ENOPAUSE) MID-FOLLICULAR PHASE: 3.9-8.8 mIU/mL MID-CYCLE PEAK: 4.5-22.5 mIU/mL MID-LUTEAL PHASE: 1.8-5.1 mIU/mL FEMALE NORMALS (POSTMENOPAUSE): 16.7-113.6 mIU/mL MALE NORMALS: 1.3-19.3 mIU/mL TSH DL <= 0.005 mIU/L QnOrde red By: Elizabeth Alvarado on 12-03-2021 TSH Qn 4.23 m[IU]/L 0.45-5.33 [facility] Total estrogen measurementOr dered By: Elizabeth Alvarado on 12-03-2021 Estrogen [Mass/Vol] 83 pg/mL . [facility] [facility] Comment on above: Prepubertal < 40 Female Cycle: 1-10 Days 16 - 328 11-20 Days 34 - 501 21-30 Days 48 - 350 Post-Menopausal 40 - 244 Performed at: [facility] [id number] Textile Machine Mechanic: Virgie Isaac MD, Phone: [phone] Coding Summary.on 01-26-2019 Coding Summary. CODING DATE: 019 FINAL [facility] STATUS: Home (Routine DC) PAYOR: Medicare APC DESCRIPTION 5113 Level 3 Musculoskeletal Procedures ADMIT DX: REASON FOR VISIT DX: M76.61 Achilles tendinitis, right leg FINAL DX: PRINCIPAL: M76.61 Achilles tendinitis, right leg SECONDARY: M24.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, right ankle I10 Essential (primary) hypertension J45.909 Unspecified asthma, uncomplicated K21.9 Gastro-esophageal reflux disease without esophagitis Z79.899 Other skilled nursing (current) drug therapy PYMT PROC APC STAT DESCRIPTION DOCTOR NAME DATE 00753 4748 J1 Tenotomy, percutaneous, Thuan Travis DPM 01/24/2019 Achilles tendon (separate procedure); general anesthesia RT Right side (used to identify procedures performed on the right side of the body) 12518 Anesthesia for Shahab Almanzar Jr., DO 01/24/2019 [...] Revised Date Saved: 01/26/2019 11:32 am Normal [facility] Inpatient Patient Summaryon 01-24-2019 Inpatient Patient Summary [facility] Clinical Discharge Instructions PERSON INFORMATION Name: GEETA SHELTNO PHYSICIANS Admitting Physician: Thuan Travis DPM Attending Physician: Thuan Travis DPM PCP: Nichole Caballero Discharge Diagnosis: Comment: PATIENT EDUCATION INFORMATION Instructions: Post Op Patient Instructions - FT (Custom); Foot Cryocuff Patient Instructions - FT (Custom); Brown - Post Operative Instructions (Revised 12/20/13) (Custom) (URC592) Medication Leaflets: Follow up: MEDICATION LIST Comment: Normal [facility] Lyteson 01-24-2019 Anion gap [Moles/Vol] 14 mmol/L Normal 6-16 [facility] Comment on above: Performed By: #### 2 241479, 2169894, 9862984, 93048319, 7598904, 2374575 #### [facility] [address] [place] [address] Chloride [Moles/Vol] 107 mmol/L Normal 101-111 [facility] Comment on above: Performed By: #### 2 923012, 9165657, 9673928, 35645772, 3369957, 0558206 #### [facility] [address] [facility] [place] [address] CO2 [Moles/Vol] 23 mmol/L Normal 21-31 [facility] Comment on above: Performed By: #### 2 728385, 2568280, 6296308, 56376669, 9683709, 4339139 #### [facility] [address] [place] [address] Potassium [Moles/Vol] 4.9 mmol/L Normal 3.5-5.3 [facility] Comment on above: Performed By: #### 2 042647, 0561089, 1653831, 69864867, 1154387, 3889102 #### [facility] [address] [place] [address] Sodium [Moles/Vol] 139 mmol/L Normal 135-145 [facility] Comment on above: Performed By: #### 2 379040, 3057681, 9524240, 80817739, 4251236, 4787405 #### [facility] [address] [place] [address] Main OR Intraoperative Recor don 01-24-2019 Main OR Intraoperative Record IntraOp Document Type FT Summary Primary Physician: Thuan Travis DPM Finalized Date/Time: 01/24/19 11:33:24 Pt. Name: GEETA SHELTON/Sex: 1970 Female Med Rec #: [id number] Physician: Thuan Travis DPM Financial #: [id number] Pt. Type: A Room/Bed: [facility] Admit/Disch: 01/24/19 07:58:48 - Institution: [...] Cheryl Role Performed Anesthesiologist Surgeon - Primary IT RISK AND ASSURANCE SENIOR MANAGER Advisory Services Associate Time In 01/24/19 08:48:00 01/24/19 09:00:00 01/24/19 [...] Zuly Duarte CST, Prashant Panda Role Performed Stone Sandblaster - Primary Stone Sandblaster - Other Scrub - Primary Time In [...] Thaddeus SANCHEZ, Lizeth Gar RN, CNOR, Jani uLna RN, Alpa Sheikh RN, Gerald Veliz CST, [...] AGUILAR, CNOR, Alpa AGUILAR, Zuly Luna, Gerald TREE CARE FOREMAN, R, Gerald QUIROZ, Prashant Panda Outcomes Met? [...] to transfer/transport General Comments: REPORT GIVEN TO PUBLIC ADDRESS SYSTEM INSTALLERRN. Cy PRIDE RN Dressing/Packing FT Pre-Care Text: [...] BLANKET MISTRAL AIR Quantity 1 Aid TORSO [[id number]][F] Fluid/Brewer Unit Mistral warming system Setting HIGH/43 Body Site Upper anterior torso Last Modified By: Kallie Gunter RN 01/24/19 08:46:43 Case Comments Finalized By: Maye Silverio CST Document Signatures Signed By: Kallie Gunter RN 01/24/19 09:26 Maye Silverio CST 01/24/19 11:33 Normal [facility] Main OR PACU I Recordon Main OR PACU I Record PACU Phase I Docum ent Type FT Summary Primary Physician: Thuan Travis DPM Finalized Date/Time: 01/24/19 10:08:45 Pt. Name: GEETA SHELTON/Sex: 1970 Female Med Rec #: [id number] Physician: Thuan Travis DPM Financial #: [id number] Pt. Type: A Room/Bed: Admit/Disch: 01/24/19 07:58:48 [...] By: Swathi Carr RN 01/24/19 10:08 Normal [facility] Main OR PACU II Recordon Main OR PACU II Record PACU Phase II Doc ument Type FT Summary Primary Physician: Thuan Travis DPM Finalized Date/Time: 01/24/19 13:09:21 Pt. Name: GEETA SHELTON/Sex: 1970 Female Med Rec #: [id number] Physician: Thuan Travis DPM Financial #: [id number] Pt. Type: Kaylin Room/Bed: Admit/Disch: 01/24/19 07:58:48 [...] By: Keeley Putnam LPN 01/24/19 13:09 Normal [facility] Main OR Preoperative Recordo n 01-24-2019 Main OR Preoperative Record PreOp Document Type FT Summary Primary Physician: Thuan Travis DPM Finalized Date/Time: 01/24/19 09:12:07 Pt. Name: GEETA SHELTON/Sex: 1970 Female Med Rec #: [id number] Physician: Thuan Travis DPM Financial #: [id number] Pt. Type: A Room/Bed: [facility]/01 Admit/Disch: 01/24/19 07:58:48 - Institution: [...] By: Kallie Gunter RN 01/24/19 09:12 Normal [facility] Operative Reporton 9 Operative Report Date of [...] first postoperative visit. Sania Pantoja Dictated: 01/24/2019 #[id number] Typed: 01/24/2019 #[id number] cc: Thuan Travis D.P.M. [facility] Comment on above: Result Comment: Elec tronically Signed By: Thuan Travis DPM\.br\Date and Time Signed: 01/24/19 10:24 EDT Patient Education - Texton 1 Patient Education - Text (Inserted Image . Unable to display) [place], [place] Thuan Travis DPM, FACFAS POST OPERATIVE [...] feel free to call the doctor at: [phone] or [phone] Travis paged. ___ Patient signature Date ___ Dr. Anand Sauer DPM, FACFAS Date Revised: 06-02 [facility] Progress Note-Physicianon Progress Note-Physician Patient: GEETA [...] 1 ml. Complications: None. Anesthesia type: General. [facility] Comment on above: Result Comment: Elec tronically Signed By: Thuan Travis DPM\.br\Date and Time Signed: 01/24/19 09:27 EDT Coding Summary.on 01-12-2019 Coding Summary. CODING DATE: 019 [facility] STATUS: Home (Routine DC) [...] Olivarez CphT Date Saved: 01/12/2019 11:10 am [facility] BUNon 01-11-2019 Urea nitrogen [Mass/Vol] 29 mg/dL High 5-21 [facility] Comment on above: Performed By: #### 2 373553, 6935600, 9509535, 68209993, 7551001, 2402328 #### [facility] [address] [place] [address] CBC w/Indiceson 01-11-2019 Erythrocyte distribution width (RBC) [Ratio] 16.1 % High 10.9-14.2 [facility] Comment on above: Performed By: #### 1 4947100, 0254541, 2401270, 8379733, 8743990 #### [facility] [address] [place] [address] Hematocrit (Bld) [Volume fraction] 42.1 % Normal 34.0-46.0 [facility] Comment on above: Performed By: #### 1 0278223, 6009132, 0945857, 3388503, 4956747 #### [facility] [address] [place] [address] Hemoglobin (Bld) [Mass/Vol] 13.8 g/dL Normal 12.0-16.0 [facility] Comment on above: Performed By: #### 1 0170218, 6947613, 9045127, 1418366, 6993342 #### [facility] [address] [place] [address] MCH (RBC) [Entitic mass] 25.8 pg Low 27.0-34.0 [facility] Comment on above: Performed By: #### 1 3995154, 3300288, 4138092, 0837109, 4493419 #### [facility] [address] [place] [address] MCHC (RBC) [Mass/Vol] 32.8 g/dL Low 33.3-35.7 [facility] Comment on above: Performed By: #### 1 2377754, 6554710, 2291842, 8507673, 2573025 #### [facility] [address] [place] [address] MCV (RBC) [Entitic vol] 78.5 fL Low 80.0-100.0 [facility] Comment on above: Performed By: #### 1 2726857, 6635760, 9741328, 2478857, 4499621 #### [facility] [address] [place] [address] Platelet mean volume (Bld) [Entitic vol] 9.9 fL Normal 6.4-10.8 [facility] Comment on above: Performed By: #### 1 7772112, 8368849, 1521252, 0056909, 7834100 #### [facility] [address] [place] [address] Platelets (Bld) [#/Vol] 283.0 E9/L Normal 150. 0-500. 0 [facility] Comment on above: Performed By: #### 1 1494680, 4883837, 1034699, 8644259, 6325692 #### [facility] [address] [place] [address] RBC (Bld) [#/Vol] 5.4 E12/L Normal 4.3-5.9 [facility] Comment on above: Performed By: #### 1 2201848, 1036545, 2847904, 5715595, 2817522 #### [facility] [address] [place] [address] WBC corrected for nucl RBC Auto (Bld) [#/Vol] 8.6 E9/L Normal 4.0-11.0 [facility] Comment on above: Performed By: #### 1 1482225, 6964406, 3214694, 5772752, 5239568 #### [facility] [address] [place] [address] Creatinineon 01-11-2019 Creatinine [Mass/Vol] 1.0 mg/dL Normal 0.5-1.3 [facility] Comment on above: Performed By: #### 2 885480, 5110976, 6767075, 14328998, 6358063, 8076916 #### [facility] [address] [place] [address] Glucoseon 01-11-2019 Glucose [Mass/Vol] 95 mg/dL Normal 55-199 [facility] Comment on above: Performed By: #### 1 5028453, 8169119, 3537187, 6035468, 8213172 #### [facility] [address] [place] [address] eGFRon 01-11-2019 GFR/1.73 sq M predicted among blacks MDRD (S/P/Bld) [Vol rate/Area] mL/min/{1.73_m2} Normal >=59 [facility] Comment on above: Order Comment: Order added by Discern Expert. Result Comment: eGFR is race adjusted. AA=. Performed By: #### 2 917619, 4346699, 8913782, 46666561, 6160203, 5654120 #### [facility] [address] [place] [address] GFR/1.73 sq M predicted among non-blacks MDRD (S/P/Bld) [Vol rate/Area] 59 mL/min/1.73 m2 Normal >=59 [facility] Comment on above: Order Comment: Order added by Discern Expert. Result Comment: Mirror Painter stefanie kidney disease could be indicated at eGFR's of less than 60 mL/min/1.73m2. Kidney failure is indicated at less than 15 mL/min/1.73m2. Performed By: #### 2 757364, 8984928, 7500223, 33220093, 7936957, 8869148 #### [facility] [address] [place] [address] Coding Summary.on 12-15-2018 Coding Summary. CODING DATE: 019 FINAL [facility] STATUS: Home (Routine DC) PAYOR: Medicare [...] CphT Date Saved: 12/15/2018 01:36 pm Normal [facility] BUNon 12-14-2018 Urea nitrogen [Mass/Vol] 19 mg/dL Normal 5-21 [facility] Comment on above: Performed By: #### 2 212594, 8707215, 2270653, 01098053, 7231729, 5733142 #### [facility] [address] [place] [address] CBC w/Indiceson 12-14-2018 Erythrocyte distribution width (RBC) [Ratio] 17.1 % High 10.9-14.2 [facility] Comment on above: Performed By: #### 2 093862, 7362151, 6063989, 08248308, 3346419, 5538734 #### [facility] [address] [place] [address] Hematocrit (Bld) [Volume fraction] 41.5 % Normal 34.0-46.0 [facility] Comment on above: Performed By: #### 2 343514, 9144206, 2717362, 75778146, 1923059, 7625070 #### [facility] [address] [place] [address] Hemoglobin (Bld) [Mass/Vol] 13.2 g/dL Normal 12.0-16.0 [facility] Comment on above: Performed By: #### 2 462725, 6538542, 4474146, 67040083, 1227457, 0526448 #### [facility] [address] [place] [address] MCH (RBC) [Entitic mass] 25.0 pg Low 27.0-34.0 [facility] Comment on above: Performed By: #### 2 452660, 7575974, 2089781, 09489612, 5571281, 5992648 #### [facility] [address] [place] [address] MCHC (RBC) [Mass/Vol] 31.7 g/dL Low 33.3-35.7 [facility] Comment on above: Performed By: #### 2 606612, 4448232, 1136599, 03189508, 0295071, 7735615 #### [facility] [address] [place] [address] MCV (RBC) [Entitic vol] 78.7 fL Low 80.0-100.0 [facility] Comment on above: Performed By: #### 2 280520, 5993164, 3332083, 81069637, 9759687, 5126411 #### [facility] [address] [place] [address] Platelet mean volume (Bld) [Entitic vol] 9.4 fL Normal 6.4-10.8 [facility] Comment on above: Performed By: #### 2 583761, 1536231, 3382272, 89226805, 4536088, 2606432 #### [facility] [address] [place] [address] Platelets (Bld) [#/Vol] 268.0 E9/L Normal 150. 0-500. 0 [facility] Comment on above: Performed By: #### 2 889497, 2408776, 1274981, 02334169, 6621608, 1236040 #### [facility] [address] [place] [address] RBC (Bld) [#/Vol] 5.3 E12/L Normal 4.3-5.9 [facility] Comment on above: Performed By: #### 2 680267, 8061606, 6560837, 13892099, 1232710, 7577937 #### [facility] [address] [place] [address] WBC corrected for nucl RBC Auto (Bld) [#/Vol] 10.6 E9/L Normal 4.0-11.0 [facility] Comment on above: Performed By: #### 2 368936, 5815025, 5430625, 86023515, 0016092, 7774887 #### [facility] [address] [place] [address] Creatinineon 12-14-2018 Creatinine [Mass/Vol] 0.7 mg/dL Normal 0.5-1.3 [facility] Comment on above: Performed By: #### 2 132290, 3356718, 4907850, 39615922, 6233818, 9474509 #### [facility] [address] [place] [address] Glucoseon 12-14-2018 Glucose [Mass/Vol] 138 mg/dL Normal 55-199 [facility] Comment on above: Performed By: #### 2 323891, 8402604, 4108950, 93862826, 9253732, 2729633 #### [facility] [address] [place] [address] Lyteson 12-14-2018 Anion gap [Moles/Vol] 17 mmol/L High 6-16 [facility] Comment on above: Performed By: #### 2 670283, 5933821, 1036485, 53812515, 9159462, 6363674 #### [facility] [address] [place] [address] Chloride [Moles/Vol] 95 mmol/L Low 101-111 [facility] Comment on above: Performed By: #### 2 915610, 6651494, 4924183, 36901484, 3749245, 4956838 #### [facility] [address] [place] [address] CO2 [Moles/Vol] 26 mmol/L Normal 21-31 [facility] Comment on above: Performed By: #### 2 885673, 1254286, 3428972, 97986570, 4828490, 6317160 #### [facility] [address] [place] [address] Potassium [Moles/Vol] 3.9 mmol/L Normal 3.5-5.3 [facility] Comment on above: Performed By: #### 2 196083, 4774175, 0431350, 10989588, 8041093, 6179215 #### [facility] [address] [place] [address] Sodium [Moles/Vol] 134 mmol/L Low 135-145 [facility] Comment on above: Performed By: #### 2 610176, 0943237, 3747026, 88848345, 9265812, 9884861 #### [facility] [address] [place] [address] XR Chest 2 Viewson 9 XR Chest [...] MD Transcribed by: MAGEN Technologist: CC Normal [facility] eGFRon 12-14-2018 GFR/1.73 sq M predicted among blacks MDRD (S/P/Bld) [Vol rate/Area] mL/min/{1.73_m2} Normal >=59 [facility] Comment on above: Order Comment: Order added by Discern Expert. Result Comment: eGFR is race adjusted. AA=. Performed By: #### 2 416673, 6160224, 7605570, 87481533, 0705359, 4371742 #### [facility] [address] [place] [address] GFR/1.73 sq M predicted among non-blacks MDRD (S/P/Bld) [Vol rate/Area] mL/min/{1.73_m2} Normal >=59 [facility] Comment on above: Order Comment: Order added by Discern Expert. Result Comment: Mirror Painter stefanie kidney disease could be indicated at eGFR's of less than 60 mL/min/1.73m2. Kidney failure is indicated at less than 15 mL/min/1.73m2. Performed By: #### 2 259164, 4565502, 6189108, 85833763, 6868152, 9356171 #### [facility] [address] [place] [address] Vital Signs Date Time Vital Sign Value Performing Clinician Facility 09-30-2023 09:36-0400 Body height 165.1 cm PHYSICIAN NO [facility] 09-30-2023 09:36-0400 Body mass index (BMI) [Ratio] 46.2 kg/m2 PHYSICIAN NO [facility] 09-30-2023 09:36-0400 Body temperature 97.6 [degF] PHYSICIAN NO [facility] 09-30-2023 09:36-0400 Body weight 126.09 kg PHYSICIAN NO [facility] 09-30-2023 09:36-0400 Diastolic blood pressure 85 mm[Hg] PHYSICIAN NO [facility] 09-30-2023 09:36-0400 Heart rate 87 /min PHYSICIAN NO [facility] 09-30-2023 09:36-0400 Respiratory rate 20 /min PHYSICIAN NO [facility] 09-30-2023 09:36-0400 SaO2% (BldA) [Mass fraction] 98 % PHYSICIAN NO [facility] 09-30-2023 09:36-0400 Systolic blood pressure 139 mm[Hg] PHYSICIAN NO [facility] 03-02-2023 10:45-0500 Body height 165.1 cm Tyler Jean Other [employer] Other 03-02-2023 10:45-0500 Body mass index (BMI) [Ratio] 44.76 kg/m2 Tyler Jean Other [employer] Other 03-02-2023 10:45-0500 Body temperature 96.7 [degF] Tyler Jean Other [employer] Other 03-02-2023 10:45-0500 Body weight 122.02 kg Tyler Jean Other [employer] Other 03-02-2023 10:45-0500 Diastolic blood pressure 82 mm[Hg] Tyler Mcnamaratyler Other [employer] Other 03-02-2023 10:45-0500 Respiratory rate 18 /min Tyler Mcnamaratyler Other [employer] Other 03-02-2023 10:45-0500 SaO2% (BldA) [Mass fraction] 96 % Tyler Mcnamaratyler Other [employer] Other 03-02-2023 10:45-0500 Systolic blood pressure 136 mm[Hg] Tyler Ted Other [facility] [employer] Other 09-21-2022 09:11-0400 Body weight 128.72 kg STONE FABRICATOR Elizabeth Myerholtz Work Phone: [facility] 09-21-2022 09:11-0400 Diastolic blood pressure 91 mm[Hg] STONE FABRICATOR Elizabeth Myerholtz Work Phone: [facility] 09-21-2022 09:11-0400 Heart rate 88 /min STONE FABRICATOR Elizabeth Myerholtz Work Phone: [facility] 09-21-2022 09:11-0400 Respiratory rate 20 /min STONE FABRICATOR Elizabeth Myerholtz Work Phone: [facility] 09-21-2022 09:11-0400 SaO2% (BldA) [Mass fraction] 96 % STONE FABRICATOR Elizabeth Myerholtz Work Phone: [facility] 09-21-2022 09:11-0400 Systolic blood pressure 145 mm[Hg] STONE FABRICATOR Elizabeth Myerholtz Work Phone: [facility] 08-16-2022 13:57-0400 Body temperature 98 [degF] STONE FABRICATOR Elizabeth Myerholtz Work Phone: [facility] 08-16-2022 13:42-0400 Body height 165.1 cm RHEA Alvarado Work Phone: [facility] 07-03-2022 08:14-0500 Body temperature 97.9 [degF] Acosta Schafer MD Work Phone: [facility] [employer] [facility] [employer] 07-03-2022 08:14-0500 Diastolic blood pressure 70 mm[Hg] Acosta Schafer MD Work Phone: [facility] 07-03-2022 08:14-0500 Heart rate 83 /min Acosta Schafer MD Work Phone: [facility] 07-03-2022 08:14-0500 Respiratory rate 18 /min Acosta Schafer MD Work Phone: [facility] [employer] 07-03-2022 08:14-0500 SaO2% (BldA) [Mass fraction] 98 % Acosta Schafer MD Work Phone: [facility] 07-03-2022 08:14-0500 Systolic blood pressure 129 mm[Hg] Acosta Schafer MD Work Phone: [facility] 07-02-2022 09:45-0500 Body mass index (BMI) [Ratio] 50.66 kg/m2 Acosta Schafer MD Work Phone: [employer] [facility] 07-02-2022 09:45-0500 Body weight 129.73 kg Acosta Schafer MD Work Phone: [employer] [facility] 06-24-2022 11:20-0500 Body height 160 cm Juan Rn [employer] [facility] 06-24-2022 11:20-0500 Body mass index (BMI) [Ratio] 50.79 kg/m2 Juan Rn [facility] 06-24-2022 11:20-0500 Body temperature 97.9 [degF] Juan Rn [facility] [employer] 06-24-2022 11:20-0500 Body weight 130.05 kg Juan Rn JULIO DAMIR [facility] 06-24-2022 11:20-0500 Diastolic blood pressure 87 mm[Hg] Mloz Rn [facility] 06-24-2022 11:20-0500 Heart rate 73 /min Mloz Rn JULIO REICH [facility] 06-24-2022 11:20-0500 Respiratory rate 16 /min Mloz Rn JULIO DAMIR [facility] 06-24-2022 11:20-0500 SaO2% (BldA) [Mass fraction] 98 % Mloz Rn JULIO [facility] 06-24-2022 11:20-0500 Systolic blood pressure 142 mm[Hg] Mloz Rn JULIO [facility] 05-18-2022 08:46-0500 Body height 165.1 cm Acosta Schafer MD Work Phone: [facility] Work Phone: 05-18-2022 08:46-0500 Body mass index (BMI) [Ratio] 45.93 kg/m2 Acosta Schafer MD Work Phone: [facility] Work Phone: 05-18-2022 08:46-0500 Body surface area Derived from formula 2.27 m2 Acosta Schafer MD Work Phone: [facility] Work Phone: 05-18-2022 08:46-0500 Body weight 125.19 kg Acosta Schafer MD Work Phone: [facility] Work Phone: Encounters Encounter Date Encounter Type Care Provider Facility Start: 09-30-2023 End: 09-30-[address] [facility] Work Phone: Start: 09-30-2023 End: 09-30-2023 Patient encounter procedure PHYSICIAN NO [facility] Physician [facility] Amb[facility] Work Phone: Start: 09-30-2023 Registered Recurring PHYSICIAN AKASH [facility] Work Phone: Start: 09-30-2023 ambulatory Lorrie Baig Facility: [facility] Start: 09-07-2023 End: 09-07-2023 Patient encounter procedure PHYSICIAN AKASH CH [facility] Main [facility] Work Phone: Start: 09-07-2023 End: 09-07-2023 ambulatory Elizabeth Alvarado Facility:[facility] Start: 08-24-2023 End: 08-24-2023 Patient encounter procedure STONE FABRICATOR Elizabeth Alvarado Work Phone: [facility] Start: 08-24-2023 End: 08-24-2023 ambulatory Elizabeth Alvarado [facility] Work Phone: Start: 08-24-2023 End: 08-24-2023 Departed Referred STONE FABRICATOR Elizabeth Alvarado Work Phone: [facility] Start: 05-10-2023 End: 05-10-2023 Patient encounter procedure STONE FABRICATOR Elizabeth Alvarado Work Phone: [facility] Work Phone: Start: 05-10-2023 End: 05-10-2023 ambulatory STONE FABRICATOR Elizabeth Alvarado Work Phone: [facility] Work Phone: Start: 03-02-2023 End: 03-02-2023 ambulatory Tlyer Jean Other [employer] Other Start: 03-02-2023 Office outpatient vi sit 25 minutes Tyler Jean [facility] Start: 02-14-2023 End: 02-14-2023 ambulatory STONE FABRICATOR Elizabeth Alvarado Work Phone: [facility] Work Phone: Start: 02-14-2023 End: 02-14-2023 Patient encounter procedure RHEA Alvarado Work Phone: [facility] Work Phone: Start: 01-26-2023 [facility] visit new patient Sindy rubio [facility] Start: 01-26-2023 End: 01-26-2023 ambulatory RHEA Alvarado Work Phone: [employer] Other Start: 01-26-2023 End: 01-26-2023 Patient encounter procedure RHEA Alvarado Work Phone: [facility] Work Phone: Start: 12-29-2022 Patient encounter procedure [facility] Schafer [facility] Work Phone: Start: 12-29-2022 ambulatory Provider Pending Facili ty:[id number] Start: 11-25-2022 End: 11-25-2022 Patient encounter procedure RHEA Alvarado Work Phone: [facility] Work Phone: Start: 09-22-2022 Patient encounter procedure [facility]osta Schafer MD [facility] Work Phone: Start: 09-22-2022 ambulatory Provider Pending Facili ty:[id number] Start: 09-21-2022 End: 09-21-2022 ambulatory RHEA Alvarado Work Phone: [facility] Work Phone: Start: 09-21-2022 End: 09-21-2022 Registered Recurring RHEA Alvarado Work Phone: [facility] Work Phone: Start: 08-11-[address] Acosta Schafer Facility:[id number] Start: 08-04-2022 End: 08-04-2022 Discharged Recurring RHEA Fraserjackie Alvarado Work Phone: [facility] [address] Start: 07-23-2022 End: 07-23-2022 ambulatory RHEA Hurley Christiano Work Phone: [facility] Work Phone: Start: 07-23-2022 End: 07-23-2022 Patient encounter procedure RHEA Johnson Christiano Work Phone: [facility] [place] Work Phone: Start: 07-16-2022 Telephone encounter Acosta Crews MD Work Phone: [facility] Work Phone: Start: 07-14-2022 Patient encounter procedure Acosta Schafer MD Work Phone: [facility] Work Phone: Start: 07-14-[address] Acosta Alva yaneli [place] Facility:[id number] Start: 07-07-2022 AUDIT Acosta sow MD Work Phone: [facility] Work Phone: Start: 07-01-2022 ambulatory Provider Pending Facili ty:[id number] Start: 07-01-2022 End: 07-03-2022 Evaluation and management of inpatient ACOSTA SCHAFER 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 Merrill Rawls as [facility] Facility:[id number] Start: 06-25-2022 Encounter for other preprocedural examination Mr. Merrill Hernandez [facility] Start: 06-24-2022 End: 06-29-2022 ambulatory ACOSTA SCHAFER [facility] Start: 06-24-2022 End: 06-28-2022 Subsequent hospital visit by physician Juan Mott 2 Rn [facility] Pre-Admission Testing Start: 05-18-2022 Patient encounter procedure [facility]osta Schafer MD [facility]: [facility] Work Phone: Start: 05-18-[address] Acosta [place] Facility:[id number] Start: 05-07-2022 End: 05-07-2022 Patient encounter procedure RHEA Alvarado Work Phone: [facility] Work Phone: Start: 04-13-2022 End: 04-13-2022 ambulatory RHEA Alvarado Work Phone: [facility] Work Phone: Start: 04-13-2022 End: 04-13-2022 Patient encounter procedure RHEA Alvarado Work Phone: [facility] Start: 12-17-2021 End: 12-17-2021 Patient encounter procedure RHEA Alvarado Work Phone: [facility] Start: 12-07-2021 End: 12-07-2021 Patient encounter procedure RHEA Alvarado Work Phone: [facility] Start: 12-03-2021 End: 12-03-2021 Departed Referred RHEA Alvarado Work Phone: [facility] Procedures Date [...] TO MG FOR LOW K Arya Coronado STONE FABRICATOR - [facility] Work Phone: Start: 07-03-2022 Blood count complete automated Arya Coronado STONE FABRICATOR - [facility] Work Phone: Start: 07-02-2022 Dup-scan xtr veins unilateral/limited study Carlos A Hou DO Work Phone: Start: 07-02-2022 BASIC METABOLIC PANE L W/ REFLEX TO MG FOR LOW K Arya Coronado STONE FABRICATOR - [facility] Work Phone: Start: 07-02-2022 Blood count complete automated Arya Coronado STONE FABRICATOR - [facility] Work Phone: Start: 07-01-2022 Radiologic examinati on knee 1/2 views Adjyoan Coronado STONE FABRICATOR - [facility] Work Phone: Start: 07-01-2022 End: 07-01-2022 Revj [...] Start: 12-17-2021 Radionuclide three-p hase bone study STONE FABRICATORNohelia Alvarado Work Phone: Start: 12-07-2021 US scan of thyroid RHEA Alvarado Work Phone: Start: 02-01-2019 Anesthesia consultation Start: 01-24-2019 Anesthesia consultation Plan of Treatment Date Care Activity Detail Author Start: 06-29-2023 FUV, Provider: Acosta Schafer, Status: Pen, Time: 2:15 PM FUV, Provider: Acosta Schafer, Status: Pen, Time: 2:15 PM [facility] Work Phone: Start: 02-17-2023 Screening for malign ant neoplasm of colon [facility] Start: 12-29-2022 FUV, Provider: Acosta Schafer, Status: Pen, Time: 1:45 PM FUV, Provider: Acosta Schafer, Status: Pen, Time: 1:45 PM [facility] [facility] [place] Work Phone: Start: 08-11-2022 FUV, Provider: Acosta Schafer, Status: Pen, Time: 9:45 AM FUV, Provider: Acosta Schafer, Status: Pen, Time: 9:45 AM [facility] [place] Work Phone: Start: 07-23-2022 [facility] Start: 07-14-2022 POV, Provider: Acosta Schafer, Status: Pen, Time: 9:00 AM POV, Provider: Acosta Schafer, Status: Pen, Time: 9:00 AM [facility] [facility] Work Phone: Start: 07-01-2022 End: 07-01-2022 Admission to same day surgery center 07/01/2022 Surgery IP Unit Acosta Schafer MD [address] [place] [address] RIGHT KNEE RIGHT TOTAL KNEE REVISION INSTRUMENTATION ANTONELLA FEMORAL & SCIATIC BLOCK [facility] [place] Comment on above: RIGHT KNEE RIGHT TOT AL KNEE REVISION INSTRUMENTATION ANTONELLA FEMORAL & SCIATIC BLOCK Start: 07-01-2022 End: 07-01-2022 Revj total knee arthrp w/wo algrft 1 component KNEE TOTAL ARTHROPLASTY REVISION Loosening of unicondylar knee replacement (HCC) 07/01/2022 10:50 AM [facility] Start: 07-01-2022 Subsequent hospital visit by physician 07/01/2022 Hospital Encounter IP Unit Acosta Schafer MD [address] [place] [address] [facility] [place] Start: [facility]01[facility]: Acosta Schafer, Status: Pen, Time: 7:00 AM [facility] Provider: Acosta Schafer, Status: Pen, Time: 7:00 AM [facility] [place] Work Phone: Start: 06-25-2022 PREADMIT, Provider: Merrill Alejandro, Status: Pen, Time: 1:45 PM PREADMIT, Provider: Merrill Alejandro, Status: Pen, Time: 1:45 PM [facility] [place] Work Phone: Start: 06-25-2022 [id number], Provider : Natali Tyson, Status: Pen, Time: 1:00 PM [id number], Provider: Natali Tyson, Status: Pen, Time: 1:00 PM [facility] [place] Work Phone: Start: 06-24-2022 Annual Wellness Visi t (AWV) Annual Wellness Visit (AWV) [facility] Start: 12-17-2021 Radionuclide three-p hase bone study NM bone 3 phase [facility] Start: 12-17-2021 End: 12-17-2021 Patient encounter procedure Departed [facility] Start: 12-07-2021 US scan of thyroid US thyroid [facility] Start: 12-07-2021 End: 12-07-2021 Patient encounter procedure Departed [facility] Start: 11-23-2021 Influenza vaccination Flu vaccine (# 1) [facility] Start: 05-18-2021 COVID-19 Vaccine (4 - Booster for Moderna series) COVID-19 Vaccine (4 - Booster for Moderna series) [facility] Start: 02-23-2018 Screening for malign ant neoplasm of breast Breast cancer screen [facility] Start: 02-23-2018 Shingles vaccine (1 of 2) Shingles v accine (1 of 2) [facility] Start: 02-23-2013 Screening for malign ant neoplasm of colon [facility] Start: 2008 Lipid panel Lipids [facility] Start: 02-23-2003 Diabetes screen Diabetes screen [facility] Start: 02-23-1998 Screening for malign ant neoplasm of cervix [facility] Start: 02-23-1989 Screening for malign ant neoplasm of cervix Pap smear [facility] Start: 02-23-1987 DTaP/Tdap/Td vaccine (1 - Tdap) DTaP/Tdap/Td vaccine ( - Tdap) [facility] Start: 02-23-1986 Hepatitis C screening Hepatitis C sc reen [facility] Start: 02-23-1983 HIV screening HIV screen [facility] Start: 1980 Depression Screen Depression Screen [facility] Start: 1968 COVID-19 Vaccine (#1) COVID-19 Vacci ne (#1) [facility] End: 07-04-2022 Basic Metabolic Panel w/ Reflex to MG Basic Metabolic Panel w/ Reflex to MG Lab Routine Daily for 3 Days starting 07/02/2022 until 07/04/2022, 2 completed [facility] Phone: Comment on above: Daily for 3 Days sta rting 07/02/2022 until 07/04/2022, 2 completed End: 07-04-2022 CBC panel - Blood by Automated count CBC Lab Routine Daily for 3 Days starting 07/02/2022 until 07/04/2022, 2 completed [facility] Phone: Comment on above: Daily for 3 Days sta rting 07/02/2022 until 07/04/2022, 2 completed Comprehensive metabo lic 2000 panel - Serum or Plasma [facility] Comprehensive metabo lic 2000 panel - Serum or Plasma [facility] IgA [Mass/volume] in Serum or Plasma [facility] IgG [Mass/volume] in Serum or Plasma [facility] IgM [Mass/volume] in Serum or Plasma [facility] Oxygen therapy [[facility] Data Set] Initiate Oxygen Therapy Protocol Respiratory Care Routine Daily until discontinued starting 07/01/2022 [facility] Phone: Comment on above: Daily until disconti nued starting 07/01/2022 Spirometry panel Incentive tonja metry Respiratory Care Routine Every 2hr while awake until discontinued starting 07/01/2022 [facility] Phone: Comment on above: Every 2hr while awak e until discontinued starting 07/01/2022 [facility] Immunizations Immunization Date Immunization Notes Care Provider Maria T otoole 03-16-2016 influenza virus vaccine, unspecified formulation RHEA Alvarado Work Phone: [facility] 03-16-2016 influenza, injectabl e, quadrivalent, preservative free Sindy Davila Other [facility] [employer] Other Payers Date Payer Category Payer Private Health Insurance [id number] 2022 Medicaid [id number] 2022 Medicare [id number] 2022 Private Health Insurance [id number] 2022 Self-pay [id number] 2014 Private Health Insurance [id number] 1970 Unknown [id number] 2.16.840.1.810036.3.579.2. 182 1968 Unknown [id number] 2.16.840.1.279807.3.579.2. 182 1968 Unknown [id number] 2.16.840.1.123774.3.579.2. 356 1968 Unknown [id number] 2.16.840.1.040167.3.579.2. 8 1968 Unknown [id number] 2.16.840.1.385983.3.579.2. 1067 1968 Unknown [id number] 2.16.840.1.230082.3.579.2. 1068 1968 Unknown [id number] 2.16.840.1.789874.3.579.2. 1067 1968 Unknown [id number] 2.16.840.1.324296.3.579.2. 1068 1968 Unknown [id number] 2.16.840.1.482501.3.579.2. 1068 1968 Unknown [id number] 2..840.1.265546.3.579.2. 1068 Medicare [id number] Medicare [place] [employer] Dual Adv JRG [id number] Unknown [facility] DUAL COMPLETE Unknown [id number] 2.16.840.1.696405.3.579.2. 531 Unknown [id number] 2.16.840.1.388602.3.579.2. 531 Unknown [id number] 2.16.840.1.031758.3.579.2. 531 Unknown [id number] 2.16.840.1.511212.3.579.2. 531 Unknown [id number] 2.16.840.1.932151.3.579.2. 531 Social History Date Type Detail Facility Start: 06-03-2017 End: 09-21-2022 Tobacco smoking status NHIS Never smoked tobacco (finding) [facility] Start: 1970 Sex Assigned At Female F [facility] Start: 06-24-2022 Tobacco use and exposure Smokeless tobacco non-user [employer] Phone: Start: 06-24-2022 End: 07-02-2022 Alcohol intake Current drinker of alcohol (finding) [employer] Phone: Start: 06-24-2022 Alcohol Comment occasional [facility] [employer] Phone: Start: 1970 Sex Assigned At Not on file [facility] Phone: Start: 06-14-2022 End: 06-24-2022 Exposure to SARS-CoV-2 (event) Not sure [employer] Phone: Sex Assigned At Sex Assigned At [facility] AgentPiggy Other Medical Equipment Procedure Code Equipment Code Equipment Origin al Text Equipment Identifier Dates Cement Bioprep S t - [id number] Start: 07-01-2022 Stem Tib L100mm [id number] Knee Tot Stbl Joey Roberta Triathlon - [id number] , [id number] FDA Start: 07-01-2022 Clinical Notes [...] of both lower extremities (ICD-10 - I87.303) [employer] Other 10-04-2023 Evaluation note* Encounter Date Diagnosis [...] Bilateral lower extremity edema (ICD-10 - R60.0) [employer] Other 04-24-2023 Consult note Author [facility] August 16, 2022 3:19pm Note Date/Time August 16, 2022 2:2 0pm [facility] at [address] [address] Hem/Onc Consult Note - OP Signed Patient: Geeta Shelton MR#: [id number] : 1970 Acct:[id number] Age/Sex: 52 / F Type: REG RCR Copies to: Elizabeth Alvarado APRN,SSRS REPORT DEVELOPER Lorrie Baig DO~ HPI Date/Time of Service: Date of Service: 08/16/2022 Time of Service: 14:19 Referring Provider/PCP: Referring Provider: Lorrie Baig DO PCP: Elizabeth Alvarado APRN, SPORTS COORDINATOR-C - History of Present Illness Reason for [...] and/or blood disorder. No history of thrombosis. [facility] - Medical History Medical History: Medical [...] Additional comments: Patient: Geeta Shelton MR#: [id number] : 1970 Acct:[id number] Age/Sex: 51 / F ADM Date: 2 Loc: [place] [facility]: [facility] Att[facility] Dr: Tyler Villeda PA-C Copies to: CARLI Noyola Jeffrey S DO~ Ordering Provider: Tyler Villeda PA-C Date of Service: 12/17/21 [facility] bone 3 phase: M25.562, M25.561 [...] the knee hardware bilaterally. This may bepostsurgical. FL/FL bone 3 phase IMPRESSION: Intense uptake of [...] for coordination of care (as documented) and [id number] counseling of patient and/or family. Dictated By: Zoey Ramirez APRN DD/ 1419 Signed By: <Electronically signed by RHEA Ramirez> 08/16/22 1519 [facility] Work Phone: 1(768) 183-343203-11-2023 History of Present illness Narrative* Sosa Poon [...] tape after removal as ordered. Patient has [facility] set up. Knee immobilizer sent with [...] Note Facility/Department: [facility] NAME: Geeta Shelton : 1970 (52 y.o.) [...] BLOCK-DEMETRIA performed by Acosta Schafer MD at [facility] OR Chart Reviewed: Yes Restrictions: [...] Recommendations: Continue to assess pending progress Goals Workers Compensation Claims Adjuster Goals Workers Compensation Claims Adjuster Goal 1: Bed mobility with indep Workers Compensation Claims Adjuster Goal 2: Functional transfes with indep Workers Compensation Claims Adjuster Goal 3: Amb 50ft with 2ww and indep Workers Compensation Claims Adjuster Goal 4: 4 steps with handrail and SBA Workers Compensation Claims Adjuster Goal 5: indep with HEP to improve [...] Therapy Med Surg Daily Treatment Note Facility/Department: [address] ORTHO TELE Room: [place] [address] NAME: Geeta Shelton : 1970 (52 y.o.) [...] Recommendations: Continue to assess pending progress Goals Workers Compensation Claims Adjuster Goals Long-Term Goal 1: Bed mobility with indep Workers Compensation Claims Adjuster Goal 2: Functional transfes with indep Long-Term Goal 3: Amb 50ft with 2ww and indep Long-Term Goal 4: 4 steps with handrail and SBA Workers Compensation Claims Adjuster Goal 5: indep with HEP to improve LE strength and ROM Patient Goals Patient Goals : to go home PLAN General Plan: 2 times a day 7 days a week Safety Devices Type of Devices: All fall risk precautions in place, Call light within reach, Left in bed, Bed alarm in place, Nurse notified [facility] (6 CLICK) BASIC MOBILITY AM-PAC Inpatient [...] to accomplish the task * Arya Coronado, STONE FABRICATOR - SSRS REPORT DEVELOPER - 07/02/2022 9:49 AM EST Progress Note [...] puffs by inhalation with spacer [] Ipratropium [place] 0.02% unit dose by aerosol Ipratropium [place] MDI 2 puffs by inhalation with spacer [] Duoneb (Ipratropium + Albuterol) unit dose by aerosol Ipratropium MDI + Albuterol MDI 2 puffs byinhalation w/spacer MDI to Aerosol [] Albuterol Sulfate MDI Albuterol Sulfate 0.083% unit dose by aerosol [] Levalbuterol MDI 2 puffs by inhalation Levalbuterol 1.25 mg unit dose by aerosol [] Ipratropium [place] MDI by inhalation Ipratropium [place] 0.02% unit dose by aerosol [] Combivent (Ipratropium + Albuterol) MDI by inhalation Duoneb (Ipratropium + Albuterol) unit doseby aerosol Treatment Assessment [Frequency/Schedule]: Change frequency to: NO CHANGE per Protocol, P&T, [facility] Points 0 1 2 3 4 Pulmonary [...] (52 y.o.) CODE STATUS: Full Code Room: [place] [address] Date of Service: 07/01/2022 Patient Diagnosis(es): Loosening [...] Ambulation Assistance: Independent Transfer Assistance: Independent Active Aerodynamics Teacher: Yes Mode of Transportation: Car OBJECTIVE: Orientation Status: Orientation Overall Orientation Status: Within Functional Limits Orientation Level: Oriented X4;Oriented to place;Oriented to time;Oriented to situation;Oriented toperson Observation: Observation/Palpation Posture: Good Observation: right knee incision with bandage and knee immobilizer in place Cognition Status: Cognition Overall Cognitive Status: [facility] Cognition Comment: Follows commands consistently Perception Status: Perception Overall Perceptual Status: [facility] Vision and Hearing Status: Vision [...] 6 complexities Assistance / Modification: Mod A [facility] (Six Click) Self care Score How much [...] How much help for eating meals?: None [facility] Inpatient Daily Activity Raw Score: 19 AM-[facility] Inpatient ADL T-Scale Score : 40.22 [...] Physical Therapy Med Surg Initial Assessment Facility/Department: [address] TELE Room: [place] [address] NAME: Geeta Shelton : 1970 (52 y.o.) [...] Ambulation Assistance: Independent Transfer Assistance: Independent Active Aerodynamics Teacher: Yes Mode of Transportation: Car OBJECTIVE: Vision [...] Goals: Patient Goals : to go home Workers Compensation Claims Adjuster Goals Workers Compensation Claims Adjuster Goal 1: Bed mobility with indep Long-Term Goal 2: Functional transfes with indep Workers Compensation Claims Adjuster Goal 3: Amb 50ft with 2ww and indep Workers Compensation Claims Adjuster Goal 4: 4 steps with handrail and SBA Long-Term Goal 5: indep with HEP to improve [...] accomplish the task documented in this encounterBON [employer] Work Phone: 1([phone]) 371-608403-09-2023 History of Present illness Narrative* History of [...] she will most likely do this at [facility] in [place]. * Physical exam * General: No acute [...] see dictated x-ray report * Procedure * [place] removed Steri-Strips placed without complication * Assessment [...] grammatical areas may persist related to the [employer] software * Merrill Alejandro PA-C * . [facility] [facility] Work Phone: 1(180) 950-683303-07-2023 Hospital Discharge instructions* Discharge Instructions* Arya Coronado APRN - SSRS REPORT DEVELOPER - 06/29/2022 11:33 AM EST Total Knee [...] remove dressing and start using instructions above [place] will be removed on post-operative day 14 [...] Hospital Unit/Room#: W268/W268-01 Discharging Unit Phone Number: [phone] Emergency Contact: Extended Emergency Contact Information Primary Emergency Contact: kena travis [place] Relation: Other Past Surgical History: Past Surgical History: Procedure Laterality Date JOINT REPLACEMENT Left knee PARTIAL KNEE ARTHROPLASTY Right REVISION TOTAL KNEE ARTHROPLASTY Right 07/01/2022 RIGHT KNEE RIGHT TOTAL KNEE REVISION INSTRUMENTATION ANTONELLA FEMORAL & SCIATIC BLOCK-DEMETRIA performed by Acosta Schafer MD at [facility] [place] Immunization History: There is [...] Assisted Dressing Assisted Toileting Independent Feeding Independent Fitness Management Director Independent Med Delivery whole Wound Care Documentation [...] applicable) Name: Address: Dialysis Schedule: Phone: Fax: Telephone Repairer/Regulatory Submissions Associate signature: {Esignature:[id number]} PHYSICIAN SECTION Prognosis: {Prognosis:8603920176} Condition at Discharge: { Patient Condition:208168160} Rehab Potential (if transferring to Rehab): {Prognosis:3498366967} Recommended Labs or Other Treatments After Discharge: Physician Certification: I certify the above information and transfer of Geeta Shelton is necessary for the continuing treatment of the diagnosis listed and that she requires {[facility]} for {GREATER/LESS:724710739} 30 days. Update Admission H&P: {CHP DME Changes in HandP:759572325} PHYSICIAN SIGNATURE: {Esignature:962809240} * Attachments The following attachments cannot be sent through Care Everywhere. * Total Knee Replacement Surgery: General Info (Czech) * Wound: VAC (Vacuum-Assisted Closure) (Czech) [facility] Phone: 1(556) 152-217003-02-2023 History of Present illness Narrative* Sindy Pelaez RN - 06/24/2022 11:10 AM EST Yellow PAT and Dynahex instruction sheet reviewed with patient, who verbalized understanding. documented in this encounterBON [facility] Network Phone: evaluation noteNo assessment information available [facility] [employer] Work Phone: Evaluation note* Diagnosis Status post revision of total knee replacement, right- Primary Status post revision of total replacement of right knee Acute postoperative pain Other acute postoperative pain documented in this encounter [facility] Phone: evalevbsth note* Diagnosis Onset Date Resolution Status MGUS (monoclonal gammopathy of unknown significance) acute Microcytosis acute Peripheral neuropathy acute [facility] [employer] Work Phone: Evaluation note* Diagnosis Onset Date Resolution Status MGUS (monoclonal gammopathy of unknown significance) acute Microcytosis acute Peripheral neuropathy acute MGUS (monoclonal gammopathy of unknown significance) [facility] Work Phone: History general Narrative - Reported* Type Description Date Medical History asthma Medical History snoring Medical History Allergic Rhinitis Medical History Essential Hypertension Surgical History Revise/Replace left knee joint Surgical History Varicose Veins 2010 Surgical History Right ankle surgery Hospitalization History See above AgentPiggy Other History of Present illness Narrative* New [...] grammatical areas may persist related to the [employer] software * Acosta Schafer MD * Senior Attending Physician * [facility] * Orthopedic [place] * . [facility] [facility] Work Phone: History of Present illness [...] grammatical areas may persist related to the [employer] software * Acosta Schafer MD * Senior Attending Physician * [facility] * [facility] * . -[place] [facility] Work Phone: History of Present [...] will be re-assessed and goals updated. [facility] Work Phone: History of Present illness Narrative* [...] will be re-assessed and goals updated. [facility] Work Phone: History of Present illness Narrative* [...] grammatical areas may persist related to the [employer]Boxon software * Acosta Schafer MD * Senior Attending Physician * [facility] * . [facility] [facility] Work Phone: History of Present illness [...] grammatical areas may persist related to the [employer]Boxon software * Merrill Alejandro PA-C * . [facility] Work Phone: Progress note Author Krzysztof Salazar [facility] September 21, 2022 9:52am Note Date/Time September 21, 2022 9:49a m [facility] at [address] [address] Hem/Onc Follow Up Note - OP Signed Patient: Geeta Shelton MR#: [id number] : 1970 Acct:[id number] Age/Sex: 52 / F Type: REG RCR Copies to: Elizabeth Alvarado APRN,SSRS REPORT DEVELOPER Lorrie Baig,DO~ Date of Service: 09/21/2022 Time [...] for coordination of care (as documented) and [id number] counseling of patient and/or family. [facility] - Medical History Medical History: Medical [...] by Krzysztof Salazar II, DO> 09/21/22 0952 [facility] Work Phone: Reason for visit Narrative* Initial Evaluation, Pre-Op . * [facility] Work Phone: Reason for visit Narrative* Initial Evaluation, Pre-Op . * Referred by: Dr. Acosta Schafer [facility] Work Phone: Summary Purpose Family History No [...] Referral Specialty Diagnoses / Procedures Referred By Swpana t Referred To Contact Diagnoses Status post revision of total replacement of right knee Born, Arya Harry, STONE FABRICATOR - SSRS REPORT DEVELOPER [address] [place] [address] Referral ID Status Reason Start Date Expiration Date V isits Requested Visits Authorized [id number] Open Specialty Services Required 07/01/2022 07/01/2023 1 1 Question Answer I certify that I, or a nurse practitioner or physician diver assistant working with me, had an in-person encounter with the patient and the reason for the home care services is documented in the clinical note on: 07/01/2022 Will the referring provider be the attending provider for home health? [place] of attending provider for home health Dr. [...] section and content) DATE CREATED AUTHOR 02/01/2019 [facility] DATE CREATED AUTHOR AUTHOR'S ORGANIZ ATION 07/04/2022 [facility] [place] DATE CREATED AUTHOR AUTHOR'S ORGANIZ ATION 07/08/[address] [facility] ical Center DATE CREATED AUTHOR AUTHOR'S ORGANIZ ATION 12/30/2022 [facility] DATE CREATED AUTHOR AUTHOR'S ORGANIZ ATION 01/09/2023 [facility] DATE CREATED AUTHOR AUTHOR'S ORGANIZ ATION 02/19/2024 [facility] Care Teams (unrecognized sec tion and content) Team Status: Active Member Role Status Dates Elizabeth Alvarado APRN SPORTS COORDINATOR-C Primary Care Provide r Active Team Status: Inactive Member Role Status Dates Elizabeth Alvarado APRN SPORTS COORDINATORInés Primar y Care Provider, Attending Provider Active Team Status: Inactive Member Role Status Dates Elizabeth Alvarado APRN SPORTS COORDINATOR-C Primary Care Provide r Active Lorrie Baig DO Attending Provider Active Team Status: Inactive Member Role Status Dates Elizabeth Alvarado APRN SPORTS COORDINATOR-C Primary Care Provide r Active KEN CavazosC Attending Provider Active Team Status: Inactive Member Role Status Dates Elizabeth Alvarado APRN SPORTS COORDINATOR-C Attending Provider A ctive Services [facility] Primary Care Provider Active Special Procedures Nurse Relationship Specialty Start Date End Date Elizabeth Alvarado PCP - General 07/01/22 Team Status: Active Member Role Status Dates Elizabeth Alvarado APRN SPORTS COORDINATOR-C Primary Care Provide r Active Zoey Ramirez APRN Attending Provider Active Lorrie Baig DO Referring Provider Active Team Status: Inactive Member Role Status Dates Elizabeth Alvarado APRN SPORTS COORDINATOR-C Primary Care Provide r Active Acosta Schafer Attending Provider Active Team Status: Inactive Member Role Status Dates Elizabeth Alvarado APRN SPORTS COORDINATOR-C Primary Care Provide r Active Sindy Davila SPORTS COORDINATOR-C Attending Provider Active Team Status: Inactive Member Role Status Dates Elizabeth Alvarado APRN SPORTS COORDINATOR-C Attending Provider A ctive Start: August 24, 2023 End: August 24, 2023 Team Status: Active Member Role Status Dates PHYSICIAN NO FAMILY Primary Care Provider Active Team Status: Inactive Member Role Status Dates Elizabeth Alvarado APRN SPORTS COORDINATOR-C Attending Provider A ctive Start: September 07, 2023 End: September 07, 2023 PHYSICIAN NO FAMILY Primary Care Provider Active Start: September 07, 2023 End: September 07, 2023 Team Status: Active Member Role Status Dates Elizabeth Alvarado APRN SPORTS COORDINATOR-C Primary Care Provide r Active Start: September 30, 2023 Zoey Ramirez APRN Active Start: September 30, 2023 Lorrie Baig DO Referring Provider Active Sta rt: September 30, 2023 Krzysztof Salazar II, DO Attending Provider Active Start: September 30, 2023 Team Status: Inactive Member Role Status Dates Elizabeth Alvarado APRN SPORTS COORDINATOR-C Primary Care Provide r Active Start: September [...] 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 SD REVJ TOTAL KNEE ARTHRP W/WO ALGRFT 1 COMPONENT SD REVJ TOT KNEE ARTHRP FEM&ENTIRE TIBIAL COMPONE RIGHT KNEE RIGHT TOTAL KNEE REVISION INSTRUMENTATION ANTONELLA FEMORAL & SCIATIC BLOCK Acosta Schafer MD [address] [place] [address] [facility] [address] [place] [address] Referral ID Status Reason Start Date Expiration Date Visits Re quested Visits Authorized [id number] 1 1 Ordered Prescriptions (unrec ognized section [...] at 250 mL/hr, Administer over 60 Minutes, TELECOMMUNICATIONS NETWORK ENGINEER TO O.R., On Renee 07/01/22 at 0845, [...] (NoRateChange - Provider: Yang Mccollum APRN - EVENTS ASSOCIATE)1311 (Anesthesia Volume Adjustment - Provider: Yang Mccollum [...] BE BASED ON THE PRIMARY CLINICAL RECORDS. [employer] provides no warranty or guarantee of the accuracy or completeness of information in this document.
--- NOTE | 2024-06-02 12:12 | XR_ITS ---
The [address] [address] Patient Name: GEETA VANCE MRN: [id number] date: 1970 Sex: F Assigned Patient Location: ED.MAIN Current Patient Location: ED.MAIN Accession/Order Number: [id number] Exam Date: 06/02/2024 12:30 Report Date: 06/02/2024 14:08 At the request of: DEVANTE MANCILLA Procedure: XR foot RT min 3V EXAM: XR foot RT min 3V HISTORY: infection COMPARISON: None. TECHNIQUE: 3 views of the right foot are performed. FINDINGS: There is no acute fracture. The bony structures are intact. There are degenerative changes at the first metatarsal-phalangeal joint. There is a small plantar calcaneal spur and an enthesophyte at the insertion of the Achilles tendon. There appears to be a small soft tissue ulceration along the plantar aspect of the foot. XR/XR foot RT min 3V IMPRESSION: Degenerative changes as described above. Small soft tissue ulceration along the plantar aspect of the foot. Electronically authenticated by: KEVIN ESCALANTE Date: 06/02/2024 14:08
[2024-06-02 12:30] LABS: Basophils Absolute Auto 0.1 10^3/uL (0.0-0.1); Basophils Percent Auto 0.4 % (0.2-2.0); Eosinophils Absolute Auto 0.2 10^3/uL (0.0-0.7); Eosinophils Percent Auto 0.9 % (0.9-7.0); Hematocrit 47.8 % (36.0-48.0); Hemoglobin 15.2 g/dL (12.0-16.0); Immature Granulocytes Abs Auto 0.18 10^3/uL (0.00-0.03); Immature Granulocytes Pct Auto 1.1 % (0.0-0.5); Lymphocytes Percent Auto 11.6 % (20.5-60.0); Mean Corpuscular HGB Conc 31.8 g/dL (29.9-35.2); Mean Corpuscular Hemoglobin 25.5 pg (26.7-34.0); Mean Corpuscular Volume 80.3 fL (81.0-99.0); Mean Platelet Volume 10.3 fL (9.5-13.5); Monocytes Absolute Auto 1.5 10^3/uL (0.3-0.8); Monocytes Percent Auto 8.5 % (1.7-12.0); Neutrophils Absolute Auto 13.2 10^3/uL (1.4-6.5); Neutrophils Percent Auto 77.5 % (43.0-75.0); Platelet Count 317 10^3/uL (150-450); Red Blood Count 5.95 10^6/uL (4.20-5.40)
[2024-06-02] MEDS: KETOROLAC TROMETHAMINE 30 MG/ML VIAL 15 MG IVP (12:35)
[2024-06-02 12:47] LABS: Alanine Aminotransferase 39 U/L (14-59); Albumin Globulin Ratio 0.5; Alkaline Phosphatase 113 U/L (46-116); Anion Gap 11.1; Aspartate Amino Transferase 27 U/L (15-37); BUN Creatinine Ratio 10.6; Bilirubin Total 0.9 mg/dL (0.2-1.0); Calcium 9.4 mg/dL (8.5-10.1); Carbon Dioxide 30.2 mmol/L (21.0-32.0); Chloride 95 mmol/L (98-107); Estimated GFR (African America >60 (>=60 mL/min/1.73m^2); Estimated GFR (Non-African Ame 55 (>=60 mL/min/1.73m^2); Globulin 6.4 g/dL; Glucose 170 mg/dL (74-106); Potassium 4.3 mmol/L (3.5-5.1); Sodium 132 mmol/L (136-145); Total Protein 9.4 g/dL (6.4-8.2)
[2024-06-02 12:50] LABS: Lactate/Lactic Acid 1.6 mmol/L (0.4-2.0)
[2024-06-02] MEDS: CLINDAMYCIN PHOSPHATE/D5W 600 MG/50 ML PREMIX 100 MG IV ×2 (13:30→20:19)
--- NOTE | 2024-06-02 13:30 | ED.GENADUL1 ---
HPI HPI - General Adult General Chief complaint: Extremity Problem, Nontraumatic Stated complaint: LOWER EXTREMITY PAIN, DISCOLORATION Time Seen by Provider: 06/02/24 12:11 Source: patient Mode of arrival: Wheelchair History of Present Illness HPI narrative: The patient is coming to the ER with right foot pain that been going on at least for the last 2 days, have a history of chronic calluses to her foot and she usually follow-up with Dr. Gentile as outpatient, developed this redness and pain for the last 2 days she denies any other symptoms. Related Data Home Medications ?Medication ?Instructions ?Recorded ?Confirmed ammonium lactate 12 % topical cream 1 applic topical DAILY 03/02/24 06/02/24 celecoxib 200 mg capsule 200 mg PO DAILY 06/02/24 06/02/24 cyclobenzaprine 10 mg tablet 10 mg PO BEDTIME 06/02/24 06/02/24 empagliflozin 25 mg tablet 25 mg PO DAILY 06/02/24 06/02/24 (Jardiance) gabapentin 300 mg capsule 300 mg PO Q8H 06/02/24 06/02/24 hydroxyzine HCl 50 mg tablet 50 mg PO DAILY PRN itching 06/02/24 06/02/24 montelukast 10 mg tablet 10 mg PO BEDTIME 06/02/24 06/02/24 ropinirole 2 mg tablet 2 mg PO BID 06/02/24 06/02/24 sertraline 100 mg tablet 100 mg PO Q24H 06/02/24 06/02/24 solifenacin 10 mg tablet 10 mg PO DAILY 06/02/24 06/02/24 Allergies Allergy/AdvReac Type Severity Reaction Status Date / Time Penicillins AdvReac Severe Anaphylaxis Verified 12/12/23 17:11 Opioid HPI Opioid Management Most Recent Opioid Data: Last Pain Scale 8 12/12/23 20:52 12/12/23 Last MAR Pain Assessment 06/02/24 12:35 Review of Systems ROS Status of ROS 10 or more systems reviewed and unremarkable except as noted in history and below [facility] Medical History (Updated 06/02/24 @ 13:45 by Heidi Madrigal MD) Neuropathy ?G62.9 - Polyneuropathy, unspecified (ICD-10) Superficial thrombophlebitis of left leg ?I80.02 - Phlebitis and thrombophlebitis of superficial vessels of left lower extremity (ICD-10) Phlebitis of superficial vein of right lower extremity ?I80.01 - Phlebitis and thrombophlebitis of superficial vessels of right lower extremity (ICD-10) Obesity ?E66.9 - Obesity, unspecified (ICD-10) Asthma ?J45.909 - Unspecified asthma, uncomplicated (ICD-10) Pain due to varicose veins of both lower extremities ?I83.813 - Varicose veins of bilateral lower extremities with pain (ICD-10) Surgical History (Updated 05/23/24 @ 08:38 by Torres Man) Status post laser ablation of incompetent vein ?Z98.890 - Other specified postprocedural states (ICD-10) H/O tubal ligation ?Z98.51 - Tubal ligation status (ICD-10) History of bilateral knee replacement ?Z96.653 - Presence of artificial knee joint, bilateral (ICD-10) Status post laser ablation of incompetent vein ?Z98.890 - Other specified postprocedural states (ICD-10) Social History Little interest or pleasure in doing things: not at all Feeling down, depressed, or hopeless: not at all Exam Narrative Exam Narrative: Nurses notes and vital signs reviewed and patient is not hypoxic. Right lower extremity: The patient's right lower extremity showed that the patient have multiple calluses that are dry with bad hygiene of the feet, she does have redness climbing up into the ankle with tenderness and there is an area at the heel that is measuring at least 3 x 4 cm that is more of a dry skin and underlying there is some fluid and serosanguineous. With pressure on that the skin the patient have some drainage for 1 entrance wound in the middle The patient have a good anterior tibial pulse General: Well-appearing and in no apparent distress. Skin: Warm, dry, no pallor noted. No rash. Head: Normocephalic, atraumatic. Neck: Supple, non-tender. Eye: Pupils are equal, round and EOMI. No scleral icterus. Ears, Nose, Mouth, and Throat: TM are clear, no nasal mucosal hypertrophy. Oral mucosa is moist, no posterior oropharynx erythema, uvula is mid-line Cardiovascular: Regular Rate and Rhythm without murmur, gallop or rub. Respiratory: No accessory muscle use or respiratory distress. Lungs are clear to auscultation, no wheezing, rales or rhonchi Chest Wall: no tenderness Back: No midline thoracic or lumbar vertebral tenderness. No CVA tenderness Constitutional Vital Signs, click to edit/add: Last Vital Signs Temp 98.7 F 06/02/24 11:58 Pulse 104 H 06/02/24 11:58 Resp 18 06/02/24 11:58 BP 172/90 H 06/02/24 11:58 Pulse Ox 98 06/02/24 11:58 O2 Del Method Room Air 06/02/24 11:58 Course Vital Signs Vital signs: Vital Signs Temperature 98.7 F 06/02/24 11:58 Pulse Rate 104 H 06/02/24 11:58 Respiratory Rate 18 06/02/24 11:58 Blood Pressure 172/90 H 06/02/24 11:58 Pulse Oximetry 98 06/02/24 11:58 Oxygen Delivery Method Room Air 06/02/24 11:58 Temperature 98.7 F 06/02/24 11:58 Pulse Rate 104 H 06/02/24 11:58 Respiratory Rate 18 06/02/24 11:58 Blood Pressure 172/90 H 06/02/24 11:58 Pulse Oximetry 98 06/02/24 11:58 Oxygen Delivery Method Room Air 06/02/24 11:58 Medical Decision Making [facility] Narrative Medical decision making narrative: The patient presenting with a obvious infection to the lower extremity CBC showing leukocytosis and the lactic acid is not elevated The patient was started on clindamycin IV because of her allergy to penicillin The patient case was discussed with Dr. Gentile and he agreed on admitting the patient he will come to see her in few hours in the floor The patient case was discussed with Dr. Quinn and he agrees on admitting the patient for further evaluation management Lab Data Labs: Lab Results 06/02/24 Range/Units 12:21 WBC 17.0 H (4.0-11.0) 10^3/uL RBC 5.95 H (4.20-5.40) 10^6/uL Hgb 15.2 (12.0-16.0) g/dL Hct 47.8 (36.0-48.0) % MCV 80.3 L (81.0-99.0) fL MCH 25.5 L (26.7-34.0) pg MCHC 31.8 (29.9-35.2) g/dL RDW 16.0 H (11.0-15.0) % Plt Count 317 (150-450) 10^3/uL MPV 10.3 (9.5-13.5) fL Neut % (Auto) 77.5 H (43.0-75.0) % Lymph % (Auto) 11.6 L (20.5-60.0) % Pratt % (Auto) 8.5 (1.7-12.0) % Eos % (Auto) 0.9 (0.9-7.0) % Baso % (Auto) 0.4 (0.2-2.0) % Neut # (Auto) 13.2 H (1.4-6.5) 10^3/uL Lymph # (Auto) 2.0 (1.2-3.8) 10^3/uL Pratt # (Auto) 1.5 H (0.3-0.8) 10^3/uL Eos # (Auto) 0.2 (0.0-0.7) 10^3/uL Baso # (Auto) 0.1 (0.0-0.1) 10^3/uL Abs Immat Gran (auto) 0.18 H (0.00-0.03) 10^3/uL Imm/Tot Granulo (auto) 1.1 H (0.0-0.5) % Sodium 132 L (136-145) mmol/L Potassium 4.3 (3.5-5.1) mmol/L Chloride 95 L (98-107) mmol/L Carbon Dioxide 30.2 (21.0-32.0) mmol/L Anion Gap 11.1 BUN 11.0 (7.0-18.0) mg/dL Creatinine 1.04 H (0.55-1.02) mg/dL Est GFR ( Amer) >60 (>=60 mL/min/1.73m^2) Est GFR (Non-Af Amer) 55 L (>=60 mL/min/1.73m^2) BUN/Creatinine Ratio 10.6 Glucose 170 H (74-106) mg/dL Lactate 1.6 (0.4-2.0) mmol/L Calcium 9.4 (8.5-10.1) mg/dL Total Bilirubin 0.9 (0.2-1.0) mg/dL AST 27 (15-37) U/L ALT 39 (14-59) U/L Alkaline Phosphatase 113 (46-116) U/L Total Protein 9.4 H (6.4-8.2) g/dL Albumin 3.0 L (3.4-5.0) g/dL Globulin 6.4 g/dL Albumin/Globulin Ratio 0.5 Discharge Plan Discharge Chief Complaint: Extremity Problem, Nontraumatic Clinical Impression: Cellulitis Qualifiers: Site of cellulitis: extremity Site of cellulitis of extremity: lower extremity Laterality: right Qualified Code(s): L03.115 - Cellulitis of right lower limb Patient Disposition: Admitted As Inpatient Time of Disposition Decision: 13:45
--- NOTE | 2024-06-02 14:45 | P.HP_ITS ---
HPI H&P: HPI History of Present Illness Chief complaint: LOWER EXTREMITY PAIN, RIGHT FOOT CELLULITIS Narrative: Patient with a 3-day history of increasing erythema and pain in her right foot. She has been treating with this with Dr. Gentile as an outpatient. Does not recall the name of the medications, but using them for a while, but with erythema increasing and pain increasing she presented to the emergency room. In the emergency room found to have cellulitis with possible abscess formation of her right foot. She will be admitted for workup and treatment of same When I saw patient in the emergency room, she was resting comfortably in bed, no other complaints, denies chest pain, shortness of breath, fever Opioid HPI Opioid Management Most Recent Pain and Opioid Data: Last Pain Scale 10 06/02/24 16:00 06/02/24 Last Pain Assessment 06/02/24 16:00 Last MAR Pain Assessment 06/02/24 12:35 Last ORT Total Score 0 06/02/24 15:43 06/02/24 Last ORT Risk Category Low Risk 06/02/24 15:43 06/02/24 Review of Systems ROS Status of ROS 10 or more systems reviewed and unremark able except as noted in history and below [facility] Medical History Neuropathy ?G62.9 - Polyneuropathy, unspecified (ICD-10) Superficial thrombophlebitis of left leg ?I80.02 - Phlebitis and thrombophlebitis of superficial vessels of left lower extremity (ICD-10) Phlebitis of superficial vein of right lower extremity ?I80.01 - Phlebitis and thrombophlebitis of superficial vessels of right lo wer extremity (ICD-10) Obesity ?E66.9 - Obesity, unspecified (ICD-10) Asthma ?J45.909 - Unspecified asthma, uncomplicated (ICD-10) Pain due to varicose veins of both lower extremities ?I83.813 - Varicose veins of bilateral lower extremities with pain (ICD-10) Surgical History Status post laser ablation of incompetent vein ?Z98.890 - Other specified postprocedural states (ICD-10) H/O tubal ligation ?Z98.51 - Tubal ligation status (ICD-10) History of bilateral knee replacement ?Z96.653 - Presence of artificial knee joint, bilateral (ICD-10) Status post laser ablation of incompetent vein ?Z98.890 - Other specified postprocedural states (ICD-10) Social History (Updated 06/02/24 @ 16:04 by Olga Baez RN) Within the past year, how often did you have a drink containing alcohol: 2-4 times a month Within the past year, how many standard drinks containing alcohol did you have on a typical day: 1 or 2 Within the past year, how often did you have six or more drinks on one occasion: never Total score: 0 Score interpretation: A score less than 3 is consistent with normal alcohol consumption. 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 Known occupational exposures/hazards: No Highest level of school completed/degree received: 11th grade Little interest or pleasure in doing things: not at all Feeling down, depressed, or hopeless: not at all Meds Home Medications and Allergies Home Medications ?Medication ?Instructions ?Recorded ?Confirmed ?Type ammonium lactate 12 % topical cream 1 applic topical DAILY 03/02/24 06/02/24 History celecoxib 200 mg capsule 200 mg PO DAILY 06/02/24 06/02/24 History cyclobenzaprine 10 mg tablet 10 mg PO BEDTIME 06/02/24 06/02/24 History empagliflozin 25 mg tablet 25 mg PO DAILY 06/02/24 06/02/24 History (Jardiance) gabapentin 300 mg capsule 300 mg PO Q8H 06/02/24 06/02/24 History hydroxyzine HCl 50 mg tablet 50 mg PO DAILY PRN itching 06/02/24 06/02/24 History montelukast 10 mg tablet 10 mg PO BEDTIME 06/02/24 06/02/24 History ropinirole 2 mg tablet 2 mg PO BID 06/02/24 06/02/24 History sertraline 100 mg tablet 100 mg PO Q24H 06/02/24 06/02/24 History solifenacin 10 mg tablet 10 mg PO DAILY 06/02/24 06/02/24 History Allergies Allergy/AdvReac Type Severity Reaction Status Date / Time Penicillins AdvReac Severe Anaphylaxis Verified 12/12/23 17:11 Exam Constitutional Vital Signs, click to edit/add: Last Vital Signs Temp 98.7 F 06/02/24 11:58 Pulse 104 H 06/02/24 11:58 Resp 18 06/02/24 11:58 BP 172/90 H 06/02/24 11:58 Pulse Ox 98 06/02/24 11:58 O2 Del Method Room Air 06/02/24 11:58 Documenting provider has reviewed patient's vital signs: yes Common normals: no apparent distress Chest Common normals: inspection of chest normal Respiratory Common normals: normal respiratory effort and no retractions Cardio Common normals: regular rate and regular rhythm GI Common normals: Normal to inspection, nondistended, normoactive bowel sounds present Extremity Common normals: abnormal to inspection (erythema and palor of the right heel) Results Labs Labs: Short CBC 06/02/24 Range/Units 12:21 WBC 17.0 H (4.0-11.0) 10^3/uL Hgb 15.2 (12.0-16.0) g/dL Hct 47.8 (36.0-48.0) % Plt Count 317 (150-450) 10^3/uL BMP 06/02/24 12:21 Sodium 132 L Potassium 4.3 Chloride 95 L Carbon Dioxide 30.2 BUN 11.0 Creatinine 1.04 H Glucose 170 H Calcium 9.4 Liver Function 06/02/24 Range/Units 12:21 Total Bilirubin 0.9 (0.2-1.0) mg/dL AST 27 (15-37) U/L ALT 39 (14-59) U/L Alkaline Phosphatase 113 (46-116) U/L Albumin 3.0 L (3.4-5.0) g/dL Assessment and Plan Assessment and Plan (1) Abscess of tendon sheath, right ankle and foot: (2) Cellulitis: Qualifiers: Laterality: right Site of cellulitis: extremity Site of cellulitis of extremity: lower extremity Qualified Code(s): L03.115 - Cellulitis of right lower limb (3) Neuropathy: Plan Admission findings: Sinus tachycardia, uncontrolled hypertension, significant leukocytosis over 17,000, acute elevation in creatinine all secondary to right foot cellulitis with possible abscess formation Right foot cellulitis with abscess formation the patient although not a diabetic, she does have neuropathy, evaluation by Dr. Russ Laughlin suggest possible abscess formation, will get a CT scan, start patient on IV antibiotics for broad-spectrum, unfortunately patient has a severe penicillin allergy Hyponatremia-monitor daily Acute elevation in creatinine-will just encourage p.o. intake repeat labs in a.m., baseline creatinine 0.76 admission creatinine 1.04 which is 136.8% above baseline Peripheral neuropathy-continue with current medications Asthma without acute exacerbation-continue with home medications Depression-continue with home medications Bladder spasms-continue with home medications Generalized arthritis-continue with home medications Admission status: Patient with failed outpatient treatment of the right foot cellulitis that possibly now is progressed to abscess, CT scan is pending, medically necessary treatment will span 2 midnights, inpatient status, likely need for surgery
--- OUTSIDE RECORDS SUMMARY | 2024-06-02 15:15 | XMS_ITS | CCD ---
Author Organization [facility] Care Team Providers Care Photography Spotter Name Role Phone RHEA Alvarado Attending Provider [facility], Services Primary Care Provider RHEA Alvarado Primary Care Provide r CARLI Villeda Attending Provider RHEA Alvarado Primary Care Provide r CARLI Villeda Attending Provider [phone] Pending Provider Unavailable Unavailable Unavailable Unavailable Unavailable [...] Attending Provider DO Lorrie Baig Referring Provider [phone] Acosta Schafer Attending Un available Pending, [...] Dr. Acosta Tyson Attending Un available Myerholpaula, FEED MILLER Elizabeth Hurley Primary Care Provide r Myersaige, FEED MILLER Elizabeth K Attending Provider Sindy Davila Unavailable MARII Davila Attending Provider yTler Jean Unavailable [phone] MyerRHEA moulton K Primary Care Provide [...] source) Ibuprofen Drug Allergy 4 Unknown Reaction [facility] Penicillins (antibiotic) (2 sources) Penicillin Drug Allergy 4 [facility] (20 sources) Penicillins; Translations: [Penicillins] Allergy to substance 8 Anaphylaxis [facility] (6 sources) Ibuprofen; Translations: [ibuprofen] Drug Allergy 3 Unknown Reaction [facility] (3 sources) Penicillin V Drug Allergy 3 [facility] (1 source) Penicillin Drug Allergy 4 [facility] Repository Medications Current Medications Medication Drug Class(es) Dates Sig (Normalized) Sig (Original) acetaminophen 325 mg oral tablet (2 sources) Start: 07-01-2022 acetaminophen (TYLENOL) tablet 650 mg Start: 07-01-2022 End: 07-01-2022 acetaminophen (TYLENOL) tabl et 1,000 mg [id number] 200 actuat albuterol 0.09 mg/actuat metered dose [...] Active docusate sodium 50 mg / sennosides, intermediate 8.6 mg oral tablet (2 sources) Start: [...] disintegrating tablet 4 mg polyethylene glycol [id number] mg powder for oral solution (1 source) [...] break. Start: 12-03-2021 take 1 capsule by [facility] once daily venlafaxine (EFFEXOR XR) 75 MG [...] ALT [Catalytic activity/Vol] 33 U/L Normal 7-52 [facility] Comment on above: Performed By: #### F ER, CMP, CBC, FE and TIBC #### [facility] [address] [place], [place] [id number] [facility] #### TOMA SERUM, SPE, KAPPA #### [facility] , Albumin [Mass/volume] in Ser um or PlasmaOrdered By: Krzysztof Salazar on 09-20-2023 Albumin [Mass/Vol] 3.8 g/dL Normal 2.9-4.4 [facility] Comment on above: Performed By: #### F ER, CMP, CBC, FE and TIBC #### [facility] [address] [place] [address] #### TOMA SERUM, SPE, KAPPA #### [facility] , Albumin [Mass/volume] in Ser um or Plasma by Bromocresol green (BCG) dye binding methoOrdered By: Krzysztof Salazar on 09-20-2023 Albumin BCG dye [Mass/Vol] 4.2 g/dL 3.5-5.7 [facility] Alkaline phosphatase [Enzyma tic activity/volume] in Serum or PlasmaOrdered By: Krzysztof Salazar on 09-20-2023 ALP [Catalytic activity/Vol] 79 U/L Normal 34-104 [facility] Comment on above: Performed By: #### F ER, CMP, CBC, FE and TIBC #### [facility] [address] [place] [address] #### TOMA SERUM, SPE, KAPPA #### [facility] , Aspartate aminotransferase [ Enzymatic activity/volume] in Serum or PlasmaOrdered By: Krzysztof Salazar on 09-20-2023 AST [Catalytic activity/Vol] 30 U/L Normal 13-39 [facility] Comment on above: Performed By: #### F ER, CMP, CBC, FE and TIBC #### [facility] [address] [place] [address] #### TOMA SERUM, SPE, KAPPA #### [facility] , Automated basophil %Ordered By: Krzysztof Salazar on 09-20-2023 Basophils/100 WBC (Bld) 0.5 % Normal . [facility] Comment on above: Performed By: #### F ER, CMP, CBC, FE and TIBC #### [facility] [address] [place] [address] #### TOMA SERUM, SPE, KAPPA #### [facility] , Automated basophil countOrde red By: Krzysztof Salazar on 09-20-2023 Basophils (Bld) [#/Vol] 0.0 10*3/uL Normal 0.0-0.2 [facility] Comment on above: Result Comment: PERF ORMED BY: [place] [address] PATHOLOGIST [employer]SEM[employer]ER MELODY ELAM M.D. Performed By: #### F ER, CMP, CBC, FE and TIBC #### [address] #### TOMA SERUM, SPE, KAPPA #### [facility] , Automated blood monocyte cou ntOrdered By: Krzysztof Salazar on 09-20-2023 Monocytes (Bld) [#/Vol] 0.7 10*3/uL Normal 0.0-0.8 [facility] Comment on above: Performed By: #### F ER, CMP, CBC, FE and TIBC #### [address] #### TOMA SERUM, SPE, KAPPA #### [facility] , Automated eosinophil %Ordere d By: Krzysztof Saalzar on 09-20-2023 Eosinophils/100 WBC (Bld) 2.6 % Normal . [facility] Comment on above: Performed By: #### F ER, CMP, CBC, FE and TIBC #### [place] [address] [place] #### TOMA SERUM, SPE, KAPPA #### [facility] , Automated eosinophil countOr dered By: Kzrysztof Salazar on 09-20-2023 Eosinophils (Bld) [#/Vol] 0.2 10*3/uL Normal 0.0-0.45 [facility] Comment on above: Performed By: #### F ER, CMP, CBC, FE and TIBC #### [facility] [address] [place] [address] [place] #### TOMA SERUM, SPE, KAPPA #### [facility] , Automated monocyte %Ordered By: Krzysztof Salazar on 09-20-2023 Monocytes/100 WBC (Bld) 7.9 % Normal . [facility] Comment on above: Performed By: #### F ER, CMP, CBC, FE and TIBC #### [place] [address] [place] #### TOMA SERUM, SPE, KAPPA #### [facility] , Automated neutrophil %Ordere d By: Krzysztof Salazar on 09-20-2023 Neutrophils/100 WBC (Bld) 64.3 % Normal . [facility] Comment on above: Performed By: #### F ER, CMP, CBC, FE and TIBC #### [address] #### TOMA SERUM, SPE, KAPPA #### [facility] , Bilirubin.total [Mass/volume ] in Serum or PlasmaOrdered By: Krzysztof Salazar on 09-20-2023 Bilirubin [Mass/Vol] 0.6 mg/dL Normal 0.3-1.0 [facility] Comment on above: Performed By: #### F ER, CMP, CBC, FE and TIBC #### [address] #### TOMA SERUM, SPE, KAPPA #### [facility] , Calcium [Mass/volume] in Ser um or PlasmaOrdered By: Krzysztof Salazar on 09-20-2023 Calcium [Mass/Vol] 9.7 mg/dL Normal 8.6-10.3 [facility] Comment on above: Performed By: #### F ER, CMP, CBC, FE and TIBC #### [place] [address] [place] #### TOMA SERUM, SPE, KAPPA #### [facility] , Carbon dioxide, total [Moles /volume] in Serum or PlasmaOrdered By: Krzysztof Salazar on 09-20-2023 CO2 [Moles/Vol] 32.4 mmol/L High 21.0-31.0 [facility] Comment on above: Performed By: #### F ER, CMP, CBC, FE and TIBC #### [place] [address] [place] #### TOMA SERUM, SPE, KAPPA #### [facility] , Chloride [Moles/volume] in S hugo or PlasmaOrdered By: Krzysztof Salazar on 09-20-2023 Chloride [Moles/Vol] 97 mmol/L Low 98-107 [facility] Comment on above: Performed By: #### F ER, CMP, CBC, FE and TIBC #### [facility] [address] [place] [address] [place] #### TOMA SERUM, SPE, KAPPA #### [facility] , Complete Blood Count Auto Di ffon 09-20-2023 Mean Corpuscular HGB Conc 32.7 g/dL Normal 32.0-35.0 [facility] Comment on above: Performed By: #### F ER, CMP, CBC, FE and TIBC #### [facility] [address] [place] [address] #### TOMA SERUM, SPE, KAPPA #### [facility] , NRBC% 0.1 /100{WBC} Normal 0-0.5 [facility] Comment on above: Performed By: #### F ER, CMP, CBC, FE and TIBC #### [facility] [address] [place] [address] [place] #### TOMA SERUM, SPE, KAPPA #### [facility] , Comprehensive Metabolic Pane gretel 09-20-2023 Albumin [Mass/Vol] 4.2 g/dL Normal 3.5-5.7 [facility] Comment on above: Performed By: #### F ER, CMP, CBC, FE and TIBC #### [facility] [address] [place] [address] [place] #### TOMA SERUM, SPE, KAPPA #### [facility] , Creatinine Clr Calc Pharmacy 143.32 Normal [facility] Comment on above: Performed By: #### F ER, CMP, CBC, FE and TIBC #### [facility] [address] [place] [address] [place] #### TOMA SERUM, SPE, KAPPA #### [facility] , GFR/1.73 sq M.predicted MDRD (S/P/Bld) [Vol rate/Area] mL/min/{1.73_m2} Normal [facility] Comment on above: Performed By: #### F ER, CMP, CBC, FE and TIBC #### [place] [address] [place] #### TOMA SERUM, SPE, KAPPA #### [facility] , Creatinine [Mass/volume] in Serum or PlasmaOrdered By: Krzysztof Salazar on 09-20-2023 Creatinine [Mass/Vol] 0.60 mg/dL Normal 0.60-1.20 [facility] Comment on above: Performed By: #### F ER, CMP, CBC, FE and TIBC #### [address] #### TOMA SERUM, SPE, KAPPA #### [facility] , Erythrocyte distribution wid th [Ratio] by Automated countOrdered By: Krzysztof Salazar on 09-20-2023 Erythrocyte distribution width (RBC) [Ratio] 16.7 % High 11.9-15.3 [facility] Comment on above: Performed By: #### F ER, CMP, CBC, FE and TIBC #### [place] [address] [place] #### TOMA SERUM, SPE, KAPPA #### [facility] , Erythrocytes [#/volume] in B lood by Automated countOrdered By: Krzysztof Salazar on 09-20-2023 RBC (Bld) [#/Vol] 4.86 10*6/uL Normal 3.60-5.00 [facility] Comment on above: Performed By: #### F ER, CMP, CBC, FE and TIBC #### [place] [address] [place] #### TOMA SERUM, SPE, KAPPA #### [facility] , Ferritin [Mass/volume] in Se rum or PlasmaOrdered By: Krzysztof Salazar on 09-20-2023 Ferritin [Mass/Vol] 92.7 ng/mL Normal 11.0-306.8 [facility] Comment on above: Result Comment: PERF ORMED BY: [place] [address] PATHOLOGIST [employer]LECT[employer]SEMBLER MELODY ELAM M.D. Performed By: #### F ER, CMP, CBC, FE and TIBC #### [address] #### TOMA SERUM, SPE, KAPPA #### [facility] , Free K+L LT Chains, Qn, Son 09-20-2023 Free [place] Light Chains, S 30.9 mg/L High 3.3-19.4 [facility] Comment on above: Performed By: #### F ER, CMP, CBC, FE and TIBC #### [facility] [address] [place] [address] #### TOMA SERUM, SPE, KAPPA #### [facility] , Free Lambda Light Chains, S 26.4 mg/L High 5.7-26.3 [facility] Comment on above: Performed By: #### F ER, CMP, CBC, FE and TIBC #### [place] [address] [place] #### TOMA SERUM, SPE, KAPPA #### [facility] , H[place]ale/Lambda Ratio, S 1.17 Normal 0.26-1.65 [facility] Comment on above: Result Comment: Perf ormed at: - [facility] [address] [id number] Canvas Cutter: Jeyson Duncan PhD, Phone: [phone] PERFORMED BY: [place] [address] PATHOLOGIST ELECT[employer]SEMBLER MELODY ELAM M.D. Performed By: #### F ER, CMP, CBC, FE and TIBC #### [address] #### TOMA SERUM, SPE, KAPPA #### [facility] , Glucose [Mass/volume] in Ser um or PlasmaOrdered By: Krzysztof Salazar on 09-20-2023 Glucose [Mass/Vol] 123 mg/dL High 70-100 [facility] Comment on above: ADA recommended refe rence rangeRandom Glucose Reference Range is dependent on time and content of last meal. Glucose of more than 200 mg/dL in a nonstressed, ambulatory subject supports the diagnosis of Diabetes Mellitus. Result Comment: [place] om Glucose Reference Range is dependent on time and content of last meal. Glucose of more than 200 mg/dL in a nonstressed, ambulatory subject supports the diagnosis of Diabetes Mellitus. ADA recommended reference range Performed By: #### F ER, CMP, CBC, FE and TIBC #### [address] #### TOMA SERUM, SPE, KAPPA #### [facility] , Hematocrit [Volume Fraction] of Blood by Automated countOrdered By: Krzysztof Salazar on 09-20-2023 Hematocrit (Bld) [Volume fraction] 38.3 % Normal 34.0-46.4 [facility] Comment on above: Performed By: #### F ER, CMP, CBC, FE and TIBC #### [place] [address] [place] #### TOMA SERUM, SPE, KAPPA #### [facility] , Hemoglobin [Mass/volume] in BloodOrdered By: Krzysztof Salazar on 09-20-2023 Hemoglobin (Bld) [Mass/Vol] 12.5 g/dL Normal 11.8-15.4 [facility] Comment on above: Performed By: #### F ER, CMP, CBC, FE and TIBC #### [address] #### TOMA SERUM, SPE, KAPPA #### [facility] , IgA [Mass/volume] in Serum o r PlasmaOrdered By: Krzysztof Salazar on 09-20-2023 IgA [Mass/Vol] 409 mg/dL 87-352 [facility] IgG [Mass/volume] in Serum o r PlasmaOrdered By: Krzysztof Salazar on 09-20-2023 IgG [Mass/Vol] 1704 mg/dL [phone] [facility] IgM [Mass/volume] in Serum o r PlasmaOrdered By: Krzysztof Salazar on 09-20-2023 IgM [Mass/Vol] 122 mg/dL 26-217 [facility] Comment on above: Performed at: Where Was it Filmed [facility] [employer] [address] [id number] Director: Jeyson uDncan PhD, Phone: [phone] Immunofixation,Serumon 09-19 Immunofixation, Serum Normal . [facility] Comment on above: Result Comment: No m onoclonality detected. Performed By: #### F ER, CMP, CBC, FE and TIBC #### [facility] [address] [place] [address] #### TOMA SERUM, SPE, KAPPA #### [facility] , Immunoglobulin A, Serum 409 mg/dL High 87-352 [facility] Comment on above: Performed By: #### F ER, CMP, CBC, FE and TIBC #### [facility] [address] [place] [address] [place] #### TOMA SERUM, SPE, KAPPA #### [facility] , Immunoglobulin G 1704 mg/dL High [phone] [facility] Comment on above: Performed By: #### F ER, CMP, CBC, FE and TIBC #### [facility] [address] [place] [address] [place] #### TOMA SERUM, SPE, KAPPA #### [facility] , Immunoglobulin M, Serum 122 mg/dL Normal -217 [facility] Comment on above: Result Comment: Perf ormed at: Where Was it Filmed - [facility] [address] [place], [place] [id number] Canvas Cutter: Jeyson Duncan PhD, Phone: [phone] Performed By: #### F ER, CMP, CBC, FE and TIBC #### [facility] [address] [place] [address] #### TOMA SERUM, SPE, KAPPA #### [facility] , Immunoglobulin light chains. kappa.free [Mass/volume] in SerumOrdered By: Krzysztof Salazar on 09-20-2023 Immunoglobulin light chains.kappa.free (S) [Mass/Vol] 30.9 mg/L 3.3-19.4 [facility] Immunoglobulin light chains. kappa.free/Immunoglobulin light chains.lambda.free [MassOrdered By: Krzysztof Salazar on 09-20-2023 Immunoglobulin light chains.kappa.free/Immuno globulin light chains.lambda.free (S) [Mass ratio] 1.17 0.26-1.65 [facility] Comment on above: Performed at: [address] [id number] Director: Jeyson Duncan PhD, Phone: [phone] Immunoglobulin light chains. lambda.free [Mass/volume] in Serum or PlasmaOrdered By: Krzysztof Salazar on 09-20-2023 Immunoglobulin light chains.lambda.free [Mass/Vol] 26.4 mg/L 5.7-26.3 [facility] Iron [Mass/volume] in Serum or PlasmaOrdered By: Krzysztof Salazar on 09-20-2023 Iron [Mass/Vol] 74 ug/dL Normal 50-212 [facility] Comment on above: Performed By: #### F ER, CMP, CBC, FE and TIBC #### [facility] [address] [place] [address] [place] #### TOMA SERUM, SPE, KAPPA #### [facility] , Iron and TIBC Profileon 08-24 % Iron Saturation 21.5 % Normal 20-50 [facility] Comment on above: Performed By: #### F ER, CMP, CBC, FE and TIBC #### [facility] [address] [place] [address] [place] #### TOMA SERUM, SPE, KAPPA #### [facility] , Total Iron Binding Capacity 344 ug/dL Normal 255-450 [facility] Comment on above: Performed By: #### F ER, CMP, CBC, FE and TIBC #### [facility] [address] [place] [address] [place] #### TOMA SERUM, SPE, KAPPA #### [facility] , Iron binding capacity [Mass/ volume] in Serum or PlasmaOrdered By: Krzysztof Salazar on 09-20-2023 Iron binding capacity [Mass/Vol] 344 ug/dL 255-450 [facility] Iron saturation [Mass Fracti on] in Serum or PlasmaOrdered By: Krzysztof Salazar on 09-20-2023 Iron saturation [Mass fraction] 21.5 % 20-50 [facility] Leukocytes [#/volume] correc silverio for nucleated erythrocytes in Blood by Automated counOrdered By: Krzysztof Salazar on 09-20-2023 WBC corrected for nucl RBC Auto (Bld) [#/Vol] 8.5 10*3/uL 3.8-11.6 [facility] Leukocytes [#/volume] in Blo od by Automated countOrdered By: Krzysztof Salazar on 09-20-2023 WBC (Bld) [#/Vol] 8.5 10*3/uL Normal 3.8-11.6 [facility] Comment on above: Performed By: #### F ER, CMP, CBC, FE and TIBC #### [facility] [address] [place] [address] [place] #### TOMA SERUM, SPE, KAPPA #### [facility] , Lymphocytes [#/volume] in Bl ood by Automated countOrdered By: Krzysztof Salazar on 09-20-2023 Lymphocytes (Bld) [#/Vol] 2.1 10*3/uL Normal 1.00-4.8 [facility] Comment on above: Performed By: #### F ER, CMP, CBC, FE and TIBC #### [place] [address] [place] #### TOMA SERUM, SPE, KAPPA #### [facility] , Lymphocytes/100 leukocytes i n Blood by Automated countOrdered By: Krzysztof Salazar on 09-20-2023 Lymphocytes/100 WBC (Bld) 24.7 % Normal . [facility] Comment on above: Performed By: #### F ER, CMP, CBC, FE and TIBC #### [place] [address] [place] #### TOMA SERUM, SPE, KAPPA #### [facility] , MCH [Entitic mass] by Automa silverio countOrdered By: Krzysztof Salazar on 09-20-2023 MCH (RBC) [Entitic mass] 25.8 pg Normal 24.7-34.3 [facility] Comment on above: Performed By: #### F ER, CMP, CBC, FE and TIBC #### [address] #### TOMA SERUM, SPE, KAPPA #### [facility] , MCHC Auto (RBC) [Mass/Vol]Or dered By: Krzysztof Salazar on 09-20-2023 MCHC (RBC) [Mass/Vol] 32.7 g/dL 32.0-35.0 [facility] MCV [Entitic volume] by Auto mated countOrdered By: Krzysztof Salazar on 09-20-2023 MCV (RBC) [Entitic vol] 78.7 fL Low 80-100 [facility] Comment on above: Performed By: #### F ER, CMP, CBC, FE and TIBC #### [place] [address] [place] #### TOMA SERUM, SPE, KAPPA #### [facility] , Neutrophils [#/volume] in Bl ood by Automated countOrdered By: Krzysztof Salazar on 09-20-2023 Neutrophils (Bld) [#/Vol] 5.5 10*3/uL Normal 1.8-7.7 [facility] Comment on above: Performed By: #### F ER, CMP, CBC, FE and TIBC #### [facility] [address] [place] [address] [place] #### TOMA SERUM, SPE, KAPPA #### [facility] , No Panel InformationOrdered By: Krzysztof Salazar on 09-20-2023 Estimated GFR (CKD-EPI) > 60.0 mL/Min [facility] Creatinine Clearance (Chem 143.32 [facility] Protein Electrophoresis M-Antwan Not observed g/dL Not Observed [facility] Protein Electrophoresis Note See comment . [facility] Comment on above: Protein electrophore sis scan will follow via computer,mail, or it technician delivery. Serum Immunofixation See comment . [facility] Comment on above: No monoclonality det ected. Nucleated erythrocytes [Pres ence] in Blood by Automated countOrdered By: Krzysztof Salazar on 09-20-2023 Nucleated RBC Auto Ql (Bld) 0.1 /100{WBC} 0-0.5 [facility] Platelet mean volume [Entiti c volume] in Blood by Automated countOrdered By: Krzysztof Salazar on 09-20-2023 Platelet mean volume (Bld) [Entitic vol] 8.8 fL Normal 6.3-10.7 [facility] Comment on above: Performed By: #### F ER, CMP, CBC, FE and TIBC #### [facility] [address] [place] [address] [place] #### TOMA SERUM, SPE, KAPPA #### [facility] , Platelets [#/volume] in Bloo d by Automated countOrdered By: Krzysztof Salazar on 09-20-2023 Platelets (Bld) [#/Vol] 271 10*3/uL Normal 150-450 [facility] Comment on above: Performed By: #### F ER, CMP, CBC, FE and TIBC #### [facility] [address] [place] [address] [place] #### TOMA SERUM, SPE, KAPPA #### [facility] , Potassium [Moles/volume] in Serum or PlasmaOrdered By: Krzysztof Salazar on 09-20-2023 Potassium [Moles/Vol] 4.4 mmol/L Normal 3.5-5.1 [facility] Comment on above: Performed By: #### F ER, CMP, CBC, FE and TIBC #### [place] [address] [place] #### TOMA SERUM, SPE, KAPPA #### [facility] , Protein Electrophoresis, Ser umon 09-20-2023 Olyiu-3-Zdbmoype 0.3 g/dL Normal 0.0-0.4 [facility] Comment on above: Performed By: #### F ER, CMP, CBC, FE and TIBC #### [address] #### TOMA SERUM, SPE, KAPPA #### [facility] , Vghzn-7-Zoheylxv 0.8 g/dL Normal 0.4-1.0 [facility] Comment on above: Performed By: #### F ER, CMP, CBC, FE and TIBC #### [address] #### TOMA SERUM, SPE, KAPPA #### [facility] , Beta Globulin 1.2 g/dL Normal 0.7-1.3 [facility] Comment on above: Performed By: #### F ER, CMP, CBC, FE and TIBC #### [place] [address] [place] #### TOMA SERUM, SPE, KAPPA #### [facility] , Gamma Globulin 1.8 g/dL Normal 0.4-1.8 [facility] Comment on above: Performed By: #### F ER, CMP, CBC, FE and TIBC #### [place] [address] [place] #### TOMA SERUM, SPE, KAPPA #### [facility] , M-Antwan Not Observed Normal Not Observed [facility] Comment on above: Performed By: #### F ER, CMP, CBC, FE and TIBC #### [place] [address] [place] #### TOMA SERUM, SPE, KAPPA #### [facility] , SPE-Note Normal . [facility] Comment on above: Result Comment: Prot ein electrophoresis scan will follow via computer, mail, or it technician delivery. Performed By: #### F ER, CMP, CBC, FE and TIBC #### [address] #### TOMA SERUM, SPE, KAPPA #### [facility] , Protein [Mass/volume] in Ser um or PlasmaOrdered By: Krzysztof Salazar on 09-20-2023 Protein [Mass/Vol] 7.7 g/dL Normal 6.4-8.9 [facility] Comment on above: Performed By: #### F ER, CMP, CBC, FE and TIBC #### [place] [address] [place] #### TOMA SERUM, SPE, KAPPA #### [facility] , Protein [Mass/Vol] 7.8 g/dL Normal 6.0-8.5 [facility] Comment on above: Performed By: #### F ER, CMP, CBC, FE and TIBC #### [place] [address] [place] #### TOMA SERUM, SPE, KAPPA #### [facility] , Serum globulin measurement ( mass/volume)Ordered By: Krzysztof Salazar on 09-20-2023 Globulin (S) [Mass/Vol] 4.0 g/dL High 2.2-3.9 [facility] Comment on above: Performed By: #### F ER, CMP, CBC, FE and TIBC #### [place] [address] [place] #### TOMA SERUM, SPE, KAPPA #### [facility] , Serum globulin measurement b y calculation (mass/volume)Ordered By: Krzysztof Salazar on 09-20-2023 Globulin (S) [Mass/Vol] 3.5 g/dL Normal [facility] Comment on above: Performed By: #### F ER, CMP, CBC, FE and TIBC #### [facility] [address] [place] [address] [place] #### TOMA SERUM, SPE, KAPPA #### [facility] , Serum or plasma albumin/glob ulin mass ratioOrdered By: Krzysztof Salazar on 09-20-2023 Albumin/Globulin [Mass ratio] 1.2 {ratio} Normal [facility] Comment on above: Performed By: #### F ER, CMP, CBC, FE and TIBC #### [facility] [address] [place] [address] [place] #### TOMA SERUM, SPE, KAPPA #### [facility] , Albumin/Globulin [Mass ratio] 1.0 {ratio} Normal 0.7-1.7 [facility] Comment on above: Performed By: #### F ER, CMP, CBC, FE and TIBC #### [facility] [address] [place] [address] [place] #### TOMA SERUM, SPE, KAPPA #### [facility] , Serum or plasma alpha 1 glob ulin measurement by electrophoresis (mass/volume)Ordered By: Krzysztof Salazar on 09-20-2023 Alpha 1 globulin Elph [Mass/Vol] 0.3 g/dL 0.0-0.4 [facility] Serum or plasma alpha 2 glob ulin measurement by electrophoresis (mass/volume)Ordered By: Krzysztof Salazar on 09-20-2023 Alpha 2 globulin Elph [Mass/Vol] 0.8 g/dL 0.4-1.0 [facility] Serum or plasma anion gap de terminationOrdered By: Krzysztof Salazar on 09-20-2023 Anion gap [Moles/Vol] 11.0 mmol/L Normal 6.0-15.0 [facility] Comment on above: Performed By: #### F ER, CMP, CBC, FE and TIBC #### [facility] [address] [place] [address] #### TOMA SERUM, SPE, KAPPA #### [facility] , Serum or plasma beta globuli n measurement by electrophoresis (mass/volume)Ordered By: Krzysztof Salazar on 09-20-2023 Beta globulin Elph [Mass/Vol] 1.2 g/dL 0.7-1.3 [facility] Serum or plasma gamma globul in measurement by electrophoresis (mass/volume)Ordered By: Krzysztof Salazar on 09-20-2023 Gamma globulin Elph [Mass/Vol] 1.8 g/dL 0.4-1.8 [facility] Sodium [Moles/volume] in Ser um or PlasmaOrdered By: Krzysztof Salazar on 09-20-2023 Sodium [Moles/Vol] 136 mmol/L Normal 136-145 [facility] Comment on above: Performed By: #### F ER, CMP, CBC, FE and TIBC #### [place] [address] [place] #### TOMA SERUM, SPE, KAPPA #### [facility] , Transferrin [Mass/volume] in Serum or PlasmaOrdered By: Krzysztof Salazar on 09-20-2023 Transferrin [Mass/Vol] 246 mg/dL Normal 203-362 [facility] Comment on above: Performed By: #### F ER, CMP, CBC, FE and TIBC #### [facility] [address] [place] [address] #### TOMA SERUM, SPE, KAPPA #### [facility] , Urea nitrogen [Mass/volume] in Serum or PlasmaOrdered By: Krzysztof Salazar on 09-20-2023 Urea nitrogen [Mass/Vol] 16 mg/dL Normal 7-25 [facility] Comment on above: Performed By: #### F ER, CMP, CBC, FE and TIBC #### [facility] [address] [place] [id number] [place] #### TOMA SERUM, SPE, KAPPA #### [facility] , US pelvic completeon 024 US pelvic complete [facility] [address] [place] [address] [id number] Ultrasound Report Signed Patient: Geeta Shelton MR#: [id number] : 1970 Acct:[id number] Age/Sex: 53 / F ADM Date: 09/07/23 Loc: Room: Type: [facility] Attending Dr: Elizabeth Alvarado APRN, NP-C Ordering Provider: Elizabeth Alvarado APRN, CNP Date of Service: 09/07/23 US/US transvaginal: Abnormal vaginal bleeding ([id number]) US/US pelvic complete: Abnormal vaginal bleeding Copies [...] Davis Jr., D.O.09/07/2023 2:39 PM Dictation Location: [place] [address] Tech: Jessica Sinclairvolodymyr Transcribed By: SEJAL 09/07/23 2922 Dictated By: Jesus Davis Jr, DO 09/07/23 1437 Signed By: 09/07/23 1439 Normal [facility] Alanine aminotransferase [En zymatic activity/volume] in Serum or PlasmaOrdered By: Elizabeth Alvarado on 08-24-2023 ALT [Catalytic activity/Vol] 28 U/L Normal 7-52 [facility] Comment on above: Order Comment: Reaso n for Exam Type 2 diabetes mellitus without complication, without long- Performed By: #### F ER, CMP, CBC, FE and TIBC #### [facility] [address] [place] [address] #### TOMA SERUM, SPE, KAPPA #### [facility] , Albumin [Mass/volume] in Ser um or Plasma by Bromocresol green (BCG) dye binding methoOrdered By: Elizabeth Alvarado on 08-24-2023 Albumin BCG dye [Mass/Vol] 4.3 g/dL 3.5-5.7 [facility] Alkaline phosphatase [Enzyma tic activity/volume] in Serum or PlasmaOrdered By: Elizabeth Alvarado on 08-24-2023 ALP [Catalytic activity/Vol] 86 U/L Normal 34-104 [facility] Comment on above: Order Comment: Reaso n for Exam Type 2 diabetes mellitus without complication, without long- Performed By: #### F ER, CMP, CBC, FE and TIBC #### [facility] [address] [place] [address] [place] #### TOMA SERUM, SPE, KAPPA #### [facility] , Aspartate aminotransferase [ Enzymatic activity/volume] in Serum or PlasmaOrdered By: Elizabeth Alvarado on 08-24-2023 AST [Catalytic activity/Vol] 28 U/L Normal 13-39 [facility] Comment on above: Order Comment: Reaso n for Exam Type 2 diabetes mellitus without complication, without long- Performed By: #### F ER, CMP, CBC, FE and TIBC #### [facility] [address] [place] [address] [place] #### TOMA SERUM, SPE, KAPPA #### [facility] , Automated basophil %Ordered By: Elizabeth Alvarado on 08-24-2023 Basophils/100 WBC (Bld) 0.7 % Normal . [facility] Comment on above: Order Comment: Reaso n for Exam Type 2 diabetes mellitus without complication, without long- Performed By: #### T SH3 wRFLX, LIPID, CBC, CMP #### [facility] [address] Automated basophil countOrde red By: Elizabeth Alvarado on 08-24-2023 Basophils (Bld) [#/Vol] 0.1 10*3/uL Normal 0.0-0.2 [facility] Comment on above: Order Comment: Reaso n for Exam Type 2 diabetes mellitus without complication, without long- Result Comment: PERF ORMED BY: [place] [address] PATHOLOGIST [employer] MELODY ELAM M.D. Performed By: #### T SH3 wRFLX, LIPID, CBC, CMP #### [address] Automated blood monocyte cou ntOrdered By: Elizabeth Alvarado on 08-24-2023 Monocytes (Bld) [#/Vol] 0.8 10*3/uL Normal 0.0-0.8 [facility] Comment on above: Order Comment: Reaso n for Exam Type 2 diabetes mellitus without complication, without long- Performed By: #### T SH3 wRFLX, LIPID, CBC, CMP #### [address] Automated eosinophil %Ordere d By: Elizabeth Alvarado on 08-24-2023 Eosinophils/100 WBC (Bld) 3.3 % Normal . [facility] Comment on above: Order Comment: Reaso n for Exam Type 2 diabetes mellitus without complication, without long- Performed By: #### T SH3 wRFLX, LIPID, CBC, CMP #### [address] Automated eosinophil countOr dered By: Elizabeth Alvarado on 08-24-2023 Eosinophils (Bld) [#/Vol] 0.3 10*3/uL Normal 0.0-0.45 [facility] Comment on above: Order Comment: Reaso n for Exam Type 2 diabetes mellitus without complication, without long- Performed By: #### T SH3 wRFLX, LIPID, CBC, CMP #### [facility] [address] Automated monocyte %Ordered By: Elizabeth Alvarado on 08-24-2023 Monocytes/100 WBC (Bld) 8.1 % Normal . [facility] Comment on above: Order Comment: Reaso n for Exam Type 2 diabetes mellitus without complication, without long- Performed By: #### T SH3 wRFLX, LIPID, CBC, CMP #### [facility] [address] Automated neutrophil %Ordere d By: Elizabeth Alvarado on 08-24-2023 Neutrophils/100 WBC (Bld) 62.4 % Normal . [facility] Comment on above: Order Comment: Reaso n for Exam Type 2 diabetes mellitus without complication, without long- Performed By: #### T SH3 wRFLX, LIPID, CBC, CMP #### [facility] [address] [place] [address] Bilirubin.total [Mass/volume ] in Serum or PlasmaOrdered By: Elizabeth Alvarado on 08-24-2023 Bilirubin [Mass/Vol] 0.4 mg/dL Normal 0.3-1.0 [facility] Comment on above: Order Comment: Reaso n for Exam Type 2 diabetes mellitus without complication, without long- Performed By: #### F ER, CMP, CBC, FE and TIBC #### [facility] [address] [place] [address] [place] #### TOMA SERUM, SPE, KAPPA #### [facility] , Calcium [Mass/volume] in Ser um or PlasmaOrdered By: Elizabeth Alvarado on 08-24-2023 Calcium [Mass/Vol] 9.4 mg/dL Normal 8.6-10.3 [facility] Comment on above: Order Comment: Reaso n for Exam Type 2 diabetes mellitus without complication, without long- Performed By: #### F ER, CMP, CBC, FE and TIBC #### [facility] [address] [place] [address] [place] #### TOMA SERUM, SPE, KAPPA #### [facility] , Carbon dioxide, total [Moles /volume] in Serum or PlasmaOrdered By: Elizabeth Alvarado on 08-24-2023 CO2 [Moles/Vol] 29.2 mmol/L Normal 21.0-31.0 [facility] Comment on above: Order Comment: Reaso n for Exam Type 2 diabetes mellitus without complication, without long- Performed By: #### F ER, CMP, CBC, FE and TIBC #### [facility] [address] [place] [address] #### TOMA SERUM, SPE, KAPPA #### [facility] , Chloride [Moles/volume] in S hugo or PlasmaOrdered By: Elizabeth Alvarado on 08-24-2023 Chloride [Moles/Vol] 96 mmol/L Low 98-107 [facility] Comment on above: Order Comment: Reaso n for Exam Type 2 diabetes mellitus without complication, without long- Performed By: #### F ER, CMP, CBC, FE and TIBC #### [facility] [address] [place] [address] #### TOMA SERUM, SPE, KAPPA #### [facility] , Cholesterol [Mass/volume] in Serum or PlasmaOrdered By: Elizabeth Alvarado on 08-24-2023 Cholesterol [Mass/Vol] 160 mg/dL Normal 140-200 [facility] Comment on above: Chol less than [...] ER, CMP, CBC, FE and TIBC #### [facility] [address] [place] [address] #### TOMA SERUM, SPE, KAPPA #### [facility] , Cholesterol in LDL Calc [Mas s/Vol]Ordered By: Elizabeth Alvarado on 08-24-2023 Cholesterol in LDL [Mass/Vol] 78 mg/dL 0-100 [facility] Comment on above: LDL ATP III CLASSIFI CATIONLDL less than 100 mg/dL OptimalLDL 100-129 mg/dL Near or above optimalLDL 130-159 mg/dL Borderline highLDL 160-189 mg/dL HighLDL greater than 189 mg/dL Very high Cholesterol in VLDL Calc [Ma ss/Vol]Ordered By: Elizabeth Alvarado on 08-24-2023 Cholesterol in VLDL [Mass/Vol] 22 mg/dL [facility] Complete Blood Count Auto Di ffon 08-24-2023 Mean Corpuscular HGB Conc 32.5 g/dL Normal 32.0-35.0 [facility] Comment on above: Order Comment: Reaso n for Exam Type 2 diabetes mellitus without complication, without long- Performed By: #### T SH3 wRFLX, LIPID, CBC, CMP #### [address] NRBC% 0.2 /100{WBC} Normal 0-0.5 [facility] Comment on above: Order Comment: Reaso n for Exam Type 2 diabetes mellitus without complication, without long- Performed By: #### T SH3 wRFLX, LIPID, CBC, CMP #### [address] Comprehensive Metabolic Pane gretel 08-24-2023 Albumin [Mass/Vol] 4.3 g/dL Normal 3.5-5.7 [facility] Comment on above: Order Comment: Reaso n for Exam Type 2 diabetes mellitus without complication, without long- Performed By: #### F ER, CMP, CBC, FE and TIBC #### [address] #### TOMA SERUM, SPE, KAPPA #### [facility] , GFR/1.73 sq M.predicted MDRD (S/P/Bld) [Vol rate/Area] mL/min/{1.73_m2} Normal [facility] Comment on above: Order Comment: Reaso n for Exam Type 2 diabetes mellitus without complication, without long- Performed By: #### F ER, CMP, CBC, FE and TIBC #### [facility] [address] [place] [address] #### TOMA SERUM, SPE, KAPPA #### [facility] , Creatinine [Mass/volume] in Serum or PlasmaOrdered By: Elizabeth Alvarado on 08-24-2023 Creatinine [Mass/Vol] 0.65 mg/dL Normal 0.60-1.20 [facility] Comment on above: Order Comment: Reaso n for Exam Type 2 diabetes mellitus without complication, without long- Performed By: #### F ER, CMP, CBC, FE and TIBC #### [facility] [address] [place] [address] #### TOMA SERUM, SPE, KAPPA #### [facility] , Creatinine [Mass/volume] in UrineOrdered By: Elizabeth Alvarado on 08-24-2023 Creatinine (U) [Mass/Vol] 76.0 mg/dL [facility] Comment on above: No reference range e stablished Erythrocyte distribution wid th [Ratio] by Automated countOrdered By: Elizabeth Alvarado on 08-24-2023 Erythrocyte distribution width (RBC) [Ratio] 15.8 % High 11.9-15.3 [facility] Comment on above: Order Comment: Reaso n for Exam Type 2 diabetes mellitus without complication, without long- Performed By: #### T SH3 wRFLX, LIPID, CBC, CMP #### [facility] [address] [place] [address] Erythrocytes [#/volume] in B lood by Automated countOrdered By: Elizabeth Alvarado on 08-24-2023 RBC (Bld) [#/Vol] 5.06 10*6/uL High 3.60-5.00 [facility] Comment on above: Order Comment: Reaso n for Exam Type 2 diabetes mellitus without complication, without long- Performed By: #### T SH3 wRFLX, LIPID, CBC, CMP #### [facility] [address] Glucose [Mass/volume] in Ser um or PlasmaOrdered By: Elizabeth Alvarado on 08-24-2023 Glucose [Mass/Vol] 92 mg/dL Normal 70-100 [facility] Comment on above: ADA recommended refe rence rangeRandom Glucose Reference Range is dependent on time and content of last meal. Glucose of more than 200 mg/dL in a nonstressed, ambulatory subject supports the diagnosis of Diabetes Mellitus. Order Comment: Reaso n for Exam Type 2 diabetes mellitus without complication, without long- Result Comment: [place] om Glucose Reference Range is dependent on time and content of last meal. Glucose of more than 200 mg/dL in a nonstressed, ambulatory subject supports the diagnosis of Diabetes Mellitus. ADA recommended reference range Performed By: #### F ER, CMP, CBC, FE and TIBC #### [facility] [address] [place] [address] #### TOMA SERUM, SPE, KAPPA #### [facility] , Hematocrit [Volume Fraction] of Blood by Automated countOrdered By: Elizabeth Alvarado on 08-24-2023 Hematocrit (Bld) [Volume fraction] 40.6 % Normal 34.0-46.4 [facility] Comment on above: Order Comment: Reaso n for Exam Type 2 diabetes mellitus without complication, without long- Performed By: #### T SH3 wRFLX, LIPID, CBC, CMP #### [facility] [address] Hemoglobin [Mass/volume] in BloodOrdered By: Elizabeth Alvarado on 08-24-2023 Hemoglobin (Bld) [Mass/Vol] 13.2 g/dL Normal 11.8-15.4 [facility] Comment on above: Order Comment: Reaso n for Exam Type 2 diabetes mellitus without complication, without long- Performed By: #### T SH3 wRFLX, LIPID, CBC, CMP #### [facility] [address] Leukocytes [#/volume] correc silverio for nucleated erythrocytes in Blood by Automated counOrdered By: Elizabeth Alvarado on 08-24-2023 WBC corrected for nucl RBC Auto (Bld) [#/Vol] 10.2 10*3/uL 3.8-11.6 [facility] Leukocytes [#/volume] in Blo od by Automated countOrdered By: Elizabeth Alvarado on 08-24-2023 WBC (Bld) [#/Vol] 10.2 10*3/uL Normal 3.8-11.6 [facility] Comment on above: Order Comment: Reaso n for Exam Type 2 diabetes mellitus without complication, without long- Performed By: #### T SH3 wRFLX, LIPID, CBC, CMP #### [facility] [address] [place] [address] Lipid Panelon 08-24-2023 LDL Cholesterol,Calculated 78 mg/dL Normal 0-100 [facility] Comment on above: [...] ER, CMP, CBC, FE and TIBC #### [facility] [address] [place] [address] #### TOMA SERUM, SPE, KAPPA #### [facility] , Triglyceride w/Reflex 112 mg/dL Normal 0-149 [facility] Comment on above: [...] ER, CMP, CBC, FE and TIBC #### [address] #### TOMA SERUM, SPE, KAPPA #### [facility] , VLDL CHOLESTEROL 22 mg/dL Normal [facility] Comment on above: Order Comment: Reaso n for Exam Type 2 diabetes mellitus without complication, without long- Performed By: #### F ER, CMP, CBC, FE and TIBC #### [address] #### TOMA SERUM, SPE, KAPPA #### [facility] , Lymphocytes [#/volume] in Bl ood by Automated countOrdered By: Elizabeth Alvarado on 08-24-2023 Lymphocytes (Bld) [#/Vol] 2.6 10*3/uL Normal 1.00-4.8 [facility] Comment on above: Order Comment: Reaso n for Exam Type 2 diabetes mellitus without complication, without long- Performed By: #### T SH3 wRFLX, LIPID, CBC, CMP #### [address] Lymphocytes/100 leukocytes i n Blood by Automated countOrdered By: Elizabeth Alvarado on 08-24-2023 Lymphocytes/100 WBC (Bld) 25.5 % Normal . [facility] Comment on above: Order Comment: Reaso n for Exam Type 2 diabetes mellitus without complication, without long- Performed By: #### T SH3 wRFLX, LIPID, CBC, CMP #### [address] MCH [Entitic mass] by Automa silverio countOrdered By: Elizabeth Alvarado on 08-24-2023 MCH (RBC) [Entitic mass] 26.1 pg Normal 24.7-34.3 [facility] Comment on above: Order Comment: Reaso n for Exam Type 2 diabetes mellitus without complication, without long- Performed By: #### T SH3 wRFLX, LIPID, CBC, CMP #### [address] MCHC Auto (RBC) [Mass/Vol]Or dered By: Elizabeth Alvarado on 08-24-2023 MCHC (RBC) [Mass/Vol] 32.5 g/dL 32.0-35.0 [facility] MCV [Entitic volume] by Auto mated countOrdered By: Elizabeth Alvarado on 08-24-2023 MCV (RBC) [Entitic vol] 80.3 fL Normal 80-100 [facility] Comment on above: Order Comment: Reaso n for Exam Type 2 diabetes mellitus without complication, without long- Performed By: #### T SH3 wRFLX, LIPID, CBC, CMP #### [address] MicroAlb Creat Ratio,Uon Creatinine, Urine (Random) 76.0 mg/dL Normal [facility] Comment on above: Order Comment: Reaso n for Exam Type 2 diabetes mellitus without complication, without long- Result Comment: No r eference range established Performed By: #### F ER, CMP, CBC, FE and TIBC #### [address] #### TOMA SERUM, SPE, KAPPA #### [facility] , Microalbumin/Creatinine Ratio Not performed Normal 0.0-30.0 [facility] Comment on above: Order Comment: Reaso n for Exam Type 2 diabetes mellitus without complication, without long- Result Comment: PERF ORMED BY: [place] [address] PATHOLOGIST [employer] MELODY ELAM M.D. Performed By: #### F ER, CMP, CBC, FE and TIBC #### [address] #### TOMA SERUM, SPE, KAPPA #### [facility] , Microalbumin [Mass/volume] i n UrineOrdered By: Elizabeth Alvarado on 08-24-2023 Albumin DL <= 20 mg/L (U) [Mass/Vol] mg/dL High 0.0-1.8 [facility] Comment on above: Order Comment: Reaso n for Exam Type 2 diabetes mellitus without complication, without long- Performed By: #### F ER, CMP, CBC, FE and TIBC #### [facility] [address] #### TOMA SERUM, SPE, KAPPA #### [facility] , Neutrophils [#/volume] in Bl ood by Automated countOrdered By: Elizabeth Alvarado on 08-24-2023 Neutrophils (Bld) [#/Vol] 6.4 10*3/uL Normal 1.8-7.7 [facility] Comment on above: Order Comment: Reaso n for Exam Type 2 diabetes mellitus without complication, without long- Performed By: #### T SH3 wRFLX, LIPID, CBC, CMP #### [facility] [address] [place] [address] No Panel InformationOrdered By: Elizabeth Alvarado on 08-24-2023 Estimated GFR (CKD-EPI) > 60.0 mL/Min [facility] Creatinine Clearance (Chem N/A [facility] Nucleated erythrocytes [Pres ence] in Blood by Automated countOrdered By: Elizabeth Alvarado on 08-24-2023 Nucleated RBC Auto Ql (Bld) 0.2 /100{WBC} 0-0.5 [facility] Platelet mean volume [Entiti c volume] in Blood by Automated countOrdered By: Elizabeth Alvarado on 08-24-2023 Platelet mean volume (Bld) [Entitic vol] 9.8 fL Normal 6.3-10.7 [facility] Comment on above: Order Comment: Reaso n for Exam Type 2 diabetes mellitus without complication, without long- Performed By: #### T SH3 wRFLX, LIPID, CBC, CMP #### [facility] [address] [place] [address] Platelets [#/volume] in Bloo d by Automated countOrdered By: Elizabeth Alvarado on 08-24-2023 Platelets (Bld) [#/Vol] 283 10*3/uL Normal 150-450 [facility] Comment on above: Order Comment: Reaso n for Exam Type 2 diabetes mellitus without complication, without long- Performed By: #### T SH3 wRFLX, LIPID, CBC, CMP #### [facility] [address] [place] [address] Potassium [Moles/volume] in Serum or PlasmaOrdered By: Elizabeth Alvarado on 08-24-2023 Potassium [Moles/Vol] 4.3 mmol/L Normal 3.5-5.1 [facility] Comment on above: Order Comment: Reaso n for Exam Type 2 diabetes mellitus without complication, without long- Performed By: #### F ER, CMP, CBC, FE and TIBC #### [facility] [address] [place] [address] #### TOMA SERUM, SPE, KAPPA #### [facility] , Protein [Mass/volume] in Ser um or PlasmaOrdered By: Elizabeth Alvarado on 08-24-2023 Protein [Mass/Vol] 7.7 g/dL Normal 6.4-8.9 [facility] Comment on above: Order Comment: Reaso n for Exam Type 2 diabetes mellitus without complication, without long- Performed By: #### F ER, CMP, CBC, FE and TIBC #### [facility] [address] [place] [address] #### TOMA SERUM, SPE, KAPPA #### [facility] , Serum globulin measurement b y calculation (mass/volume)Ordered By: Elizabeth Alvarado on 08-24-2023 Globulin (S) [Mass/Vol] 3.4 g/dL Normal [facility] Comment on above: Order Comment: Reaso n for Exam Type 2 diabetes mellitus without complication, without long- Performed By: #### F ER, CMP, CBC, FE and TIBC #### [facility] [address] [place] [address] #### TOMA SERUM, SPE, KAPPA #### [facility] , Serum or plasma albumin/glob ulin mass ratioOrdered By: Elizabeth Alvarado on 08-24-2023 Albumin/Globulin [Mass ratio] 1.3 {ratio} Normal [facility] Comment on above: Order Comment: Reaso n for Exam Type 2 diabetes mellitus without complication, without long- Performed By: #### F ER, CMP, CBC, FE and TIBC #### [facility] [address] [place] [address] [place] #### TOMA SERUM, SPE, KAPPA #### [facility] , Serum or plasma anion gap de terminationOrdered By: Elizabeth Alvarado on 08-24-2023 Anion gap [Moles/Vol] 18.1 mmol/L High 6.0-15.0 [facility] Comment on above: Order Comment: Reaso n for Exam Type 2 diabetes mellitus without complication, without long- Performed By: #### F ER, CMP, CBC, FE and TIBC #### [facility] [address] [place] [address] [place] #### TOMA SERUM, SPE, KAPPA #### [facility] , Serum or plasma high density lipoprotein (HDL) cholesterol measurementOrdered By: Elizabeth Alvarado on 08-24-2023 Cholesterol in HDL [Mass/Vol] 60 mg/dL Normal 23- [facility] Comment on above: HDL CHOL ATP-III [...] ER, CMP, CBC, FE and TIBC #### [facility] [address] [place] [address] [place] #### TOMA SERUM, SPE, KAPPA #### [facility] , Serum or plasma total choles terol/high density lipoprotein (HDL) cholesterol mass ratOrdered By: Elizabeth Alvarado on 08-24-2023 Cholesterol.total/Choles terol in HDL [Mass ratio] 2.7 {ratio} Normal <5.0 [facility] Comment on above: Order Comment: Reaso n for Exam Type 2 diabetes mellitus without complication, without long- Performed By: #### F ER, CMP, CBC, FE and TIBC #### [address] #### TOMA SERUM, SPE, KAPPA #### [facility] , Sodium [Moles/volume] in Ser um or PlasmaOrdered By: Elizabeth Alvarado on 08-24-2023 Sodium [Moles/Vol] 139 mmol/L Normal 136-145 [facility] Comment on above: Order Comment: Reaso n for Exam Type 2 diabetes mellitus without complication, without long- Performed By: #### F ER, CMP, CBC, FE and TIBC #### [address] #### TOMA SERUM, SPE, KAPPA #### [facility] , Thyroid Stim Hormone w/Rflxo n 08-24-2023 Thyroid Stim Hormone w/Rflx 2.40 u[iU]/mL Normal 0.45-5.33 [facility] Comment on above: Order Comment: Reaso n for Exam Type 2 diabetes mellitus without complication, without long- Result Comment: PERF ORMED BY: [place] [address] PATHOLOGIST [employer] MELODY ELAM M.D. Performed By: #### F ER, CMP, CBC, FE and TIBC #### [address] #### TOMA SERUM, SPE, KAPPA #### [facility] , Thyrotropin [Units/volume] i n Serum or PlasmaOrdered By: Elizabeth Alvarado on 08-24-2023 TSH Qn 2.40 m[IU]/L 0.45-5.33 [facility] Triglyceride [Mass/volume] i n Serum or PlasmaOrdered By: Elizabeth Alvarado on 08-24-2023 Triglyceride [Mass/Vol] 112 mg/dL 0-149 [facility] Comment on above: TRIG ATP III CLASSIF ICATIONTRIG less than 150 mg/dL NormalTRIG 150-199 mg/dL Borderline highTRIG 200-500 mg/dL High TRIG greater than 500 mg/dL Very highStandard traceable to the Center for Disease Conrtrol and Prevention (CDC) test method. Urea nitrogen [Mass/volume] in Serum or PlasmaOrdered By: Elizabeth Alvarado on 08-24-2023 Urea nitrogen [Mass/Vol] 17 mg/dL Normal 7-25 [facility] Comment on above: Order Comment: Reaso n for Exam Type 2 diabetes mellitus without complication, without long- Performed By: #### F ER, CMP, CBC, FE and TIBC #### [facility] [address] #### TOMA SERUM, SPE, KAPPA #### [facility] , Urine microalbumin/creatinin e mass ratioOrdered By: Elizabeth Alvarado on 08-24-2023 Albumin/Creatinine DL <= 20 mg/L (U) [Mass ratio] TNP [facility] Comment on above: Test not performed MM screening mammo BI w/CADo n 05-10-2023 MM screening mammo BI w/CAD [facility] [address] [place] [address] Mammography Report Signed Patient: Geeta Shelton MR#: [id number] : 1970 Acct:[id number] Age/Sex: 53 / F ADM Date: 05/10/23 Loc: [place] Room: Type: [facility] Attending Dr: Elizabeth Alvarado APRN, TITLE I MATH TUTOR-C Copies to: Elizabeth Alvarado APRN, CNP Ordering [...] Mary Colon M.D.05/10/2023 10:10 AM Dictation Location: [facility] Transcribed By: [facility] 05/10/23 1010 Dictated By: Mary Colon MD 05/10/23 1007 Signed By: 05/10/23 1010 Normal [facility] Established Visit (Orthopaed [...] grammatical areas may persist related to the [employer] software Merrill Alejandro PA-C . Active Problems [...] Dec 29 2022 1:38PM EST (Author) Normal [facility] Established Visit (Orthopaed ic Surgery)on 09-22-2022 Established Visit (Orthopaedic Surgery) Diagnoses/Problems Assessed Status post total knee replacement (V43.65) (Z96.659) Orders Status post total knee replacement Xray Knee 3 View; Status:Complete; Done: [id number] 01:48PM Laterality : Right Radiologist to Determine [...] grammatical areas may persist related to the [employer] software Acosta Schafer MD Senior Attending Physician [...] 1 tablet daily Results/Data Xray Knee 3 [id number] 01:48PMAcosta Schafer Test NameResultFlagReference Xray Knee 3 View(Report) FINAL REPORT Interpreted by: ACOSTA SCHAFER BURTON, MD 09/22/22 14:13 Patient Name: GEETA SHELTON STUDY: KNEE; 3 VIEWS; Right; 09/22/2022 1:48 pm INDICATION: pain Z96.659: Status post total knee replacement. ACCESSION NUMBER(S): [id number] ORDERING CLINICIAN: ACOSTA SCHAFER FINDINGS: Right knee [...] Status post total knee replacement. ACCESSION NUMBER(S): [id number] ORDERING CLINICIAN: ACOSTA SCHAFER FINDINGS: Right knee three views. Status post revision total knee replacement components in good position no signs of fracture dislocation or other bony abnormalities Electronically signed by: ACOSTA SCHAFER MD Normal [facility] Radiologyon 09-22-2022 XR Knee 3 Views Normal -[facility] Work Phone: Alanine aminotransferase [En zymatic activity/volume] in Serum or PlasmaOrdered By: Zoey Ramirez on 08-17-2022 ALT [Catalytic activity/Vol] 45 U/L 7-52 [facility] Albumin [Mass/volume] in Ser um or PlasmaOrdered By: Zoey Ramirez on 08-17-2022 Albumin [Mass/Vol] 3.7 g/dL 2.9-4.4 [facility] Albumin [Mass/volume] in Ser um or Plasma by Bromocresol green (BCG) dye binding methoOrdered By: Zoey Ramirez on 08-17-2022 Albumin BCG dye [Mass/Vol] 4.1 g/dL 3.5-5.7 [facility] Albumin/Protein.total in 24 hour Urine by ElectrophoresisOrdered By: Zoey Ramirez on 08-17-2022 Albumin Elph (24H U) [Mass fraction] 59.9 % . [facility] Alkaline phosphatase [Enzyma tic activity/volume] in Serum or PlasmaOrdered By: Zoey Ramirez on 08-17-2022 ALP [Catalytic activity/Vol] 90 U/L 34-104 [facility] Aspartate aminotransferase [ Enzymatic activity/volume] in Serum or PlasmaOrdered By: Zoey Ramirez on 08-17-2022 AST [Catalytic activity/Vol] 40 U/L 13-39 [facility] Basophils Auto (Bld) [#/Vol] Ordered By: Zoey Ramirez on 08-17-2022 Basophils (Bld) [#/Vol] 0.1 10*3/uL 0.0-0.2 [facility] Basophils/100 WBC Auto (Bld) Ordered By: Zoey Ramirez on 08-17-2022 Basophils/100 WBC (Bld) 0.9 % . [facility] Bilirubin.total [Mass/volume ] in Serum or PlasmaOrdered By: Zoey Ramirez on 08-17-2022 Bilirubin [Mass/Vol] 0.4 mg/dL 0.3-1.0 [facility] Calcium [Mass/volume] in Ser um or PlasmaOrdered By: Zoey Ramirez on 08-17-2022 Calcium [Mass/Vol] 9.1 mg/dL 8.6-10.3 [facility] Carbon dioxide, total [Moles /volume] in Serum or PlasmaOrdered By: Zoey Ramirez on 08-17-2022 CO2 [Moles/Vol] 27.9 mmol/L 21.0-31.0 [facility] Chloride [Moles/volume] in S hugo or PlasmaOrdered By: Zoey Ramirez on 08-17-2022 Chloride [Moles/Vol] 100 mmol/L 98-107 [facility] Creatinine [Mass/volume] in Serum or PlasmaOrdered By: Zoey Ramirez on 08-17-2022 Creatinine [Mass/Vol] 0.71 mg/dL 0.60-1.20 [facility] Eosinophils Auto (Bld) [#/Vo l]Ordered By: Zoey Ramirez on 08-17-2022 Eosinophils (Bld) [#/Vol] 0.3 10*3/uL 0.0-0.45 [facility] Eosinophils/100 WBC Auto (Bl d)Ordered By: Zoey Ramirez on 08-17-2022 Eosinophils/100 WBC (Bld) 3.1 % . [facility] Erythrocyte distribution wid th Auto (RBC) [Ratio]Ordered By: Zoey Ramirez on 08-17-2022 Erythrocyte distribution width (RBC) [Ratio] 16.5 % 11.9-15.3 [facility] Ferritin [Mass/volume] in Se rum or PlasmaOrdered By: Zoey Ramirez on 08-17-2022 Ferritin [Mass/Vol] 85.3 ng/mL 11.0-306.8 [facility] Folate [Mass/volume] in Seru m or PlasmaOrdered By: Zoey Ramirez on 08-17-2022 Folate [Mass/Vol] 15.1 ng/mL >5.9 [facility] Comment on above: Folate reference ran ge: >5.9 ng/mlThe WHO technical consultation on folate and vitamin [id number] has determined that folate concentrations lessthan 4 ng/ml are considered deficient. Gamma globulin/Protein.total in 24 hour Urine by ElectrophoresisOrdered By: Zoey Ramirez on 08-17-2022 Gamma globulin Elph (24H U) [Mass fraction] 15.3 % . [facility] Globulin Calc (S) [Mass/Vol] Ordered By: Zoey Ramirez on 08-17-2022 Globulin (S) [Mass/Vol] 4.0 g/dL [facility] Glucose [Mass/volume] in Ser um or PlasmaOrdered By: Zoey Ramirez on 08-17-2022 Glucose [Mass/Vol] 142 mg/dL 70-100 [facility] Comment on above: ADA recommended refe rence rangeRandom Glucose Reference Range is dependent on time and content of last meal. Glucose of more than 200 mg/dL in a nonstressed, ambulatory subject supports the diagnosis of Diabetes Mellitus. Hematocrit Auto (Bld) [Volum e fraction]Ordered By: Zoey Ramirez on 08-17-2022 Hematocrit (Bld) [Volume fraction] 41.3 % 34.0-46.4 [facility] Hemoglobin [Mass/volume] in BloodOrdered By: Zoey Ramirez 08-17-2022 Hemoglobin (Bld) [Mass/Vol] 13.2 g/dL 11.8-15.4 [facility] IgA [Mass/volume] in Serum o r PlasmaOrdered By: Zoey Ramirez on 08-17-2022 IgA [Mass/Vol] 498 mg/dL 87-352 [facility] IgG [Mass/volume] in Serum o r PlasmaOrdered By: Zoey Ramirez on 08-17-2022 IgG [Mass/Vol] 1834 mg/dL 586-1602 [facility] IgM [Mass/volume] in Serum o r PlasmaOrdered By: Zoey Ramirez on 08-17-2022 IgM [Mass/Vol] 124 mg/dL 26-217 [facility] Comment on above: Performed at: [employer] [address] [id number] Director: Jeyson Duncan PhD, Phone: [phone] Immunofixation for UrineOrde red By: Zoey Ramirez on 08-17-2022 Interpretation Immunofixation (U) [Interp] See comment . [facility] Comment on above: No monoclonality det ected.Performed at: [employer] [facility] [address] [id number] Director: Jeyson Duncan PhD, Phone: [phone] Immunoglobulin light chains. kappa.free [Mass/volume] in SerumOrdered By: Zoey Ramirez on 08-17-2022 Immunoglobulin light chains.kappa.free (S) [Mass/Vol] 47.1 mg/L 3.3-19.4 [facility] Immunoglobulin light chains. kappa.free/Immunoglobulin light chains.lambda.free [MassOrdered By: Zoey Ramirez on 08-17-2022 Immunoglobulin light chains.kappa.free/Immuno globulin light chains.lambda.free (S) [Mass ratio] 1.65 0.26-1.65 [facility] Comment on above: Performed at: [employer] [address] [place] [id number] Director: Jeyson Duncan PhD, Phone: [phone] Immunoglobulin light chains. lambda.free [Mass/volume] in Serum or PlasmaOrdered By: Zoey Ramirez on 08-17-2022 Immunoglobulin light chains.lambda.free [Mass/Vol] 28.6 mg/L 5.7-26.3 [facility] Iron [Mass/volume] in Serum or PlasmaOrdered By: Zoey Ramirez on 08-17-2022 Iron [Mass/Vol] 41 ug/dL 50-212 [facility] Iron binding capacity [Mass/ volume] in Serum or PlasmaOrdered By: Zoey Ramirez on 08-17-2022 Iron binding capacity [Mass/Vol] 344 ug/dL 255-450 [facility] Iron saturation [Mass Fracti on] in Serum or PlasmaOrdered By: Zoey Ramirez on 08-17-2022 Iron saturation [Mass fraction] 11.9 % 20-50 [facility] Leukocytes [#/volume] correc silverio for nucleated erythrocytes in Blood by Automated counOrdered By: Zoey Ramirez on 08-17-2022 WBC corrected for nucl RBC Auto (Bld) [#/Vol] 9.9 10*3/uL 3.8-11.6 [facility] Lymphocytes Auto (Bld) [#/Vo l]Ordered By: Zoey Ramirez on 08-17-2022 Lymphocytes (Bld) [#/Vol] 2.8 10*3/uL 1.00-4.8 [facility] Lymphocytes/100 WBC Auto (Bl d)Ordered By: Zoey Ramirez on 08-17-2022 Lymphocytes/100 WBC (Bld) 28.5 % . [facility] MCH Auto (RBC) [Entitic mass ]Ordered By: Zoey Ramirez on 08-17-2022 MCH (RBC) [Entitic mass] 24.9 pg 24.7-34.3 [facility] MCHC Auto (RBC) [Mass/Vol]Or dered By: Zoey Ramirez on 08-17-2022 MCHC (RBC) [Mass/Vol] 32.0 g/dL 32.0-35.0 [facility] MCV Auto (RBC) [Entitic vol] Ordered By: Zoey Ramirez on 04-25-2023 MCV (RBC) [Entitic vol] 77.8 fL 80-100 [facility] Monocytes Auto (Bld) [#/Vol] Ordered By: Zoey Ramirez on 08-17-2022 Monocytes (Bld) [#/Vol] 0.6 10*3/uL 0.0-0.8 [facility] Monocytes/100 WBC Auto (Bld) Ordered By: Zoey Ramirez on 08-17-2022 Monocytes/100 WBC (Bld) 5.9 % . [facility] Neutrophils Auto (Bld) [#/Vo l]Ordered By: Zoey Ramirez on 08-17-2022 Neutrophils (Bld) [#/Vol] 6.1 10*3/uL 1.8-7.7 [facility] Neutrophils/100 WBC Auto (Bl d)Ordered By: Zoey Ramirez on 08-17-2022 Neutrophils/100 WBC (Bld) 61.6 % . [facility] No Panel InformationOrdered By: Zoey Ramirez on 08-17-2022 Estimated GFR (CKD-EPI) > 60.0 mL/Min [facility] Creatinine Clearance (Chem 122.85 [facility] Protein Electrophoresis M-Antwan Not observed g/dL Not Observed [facility] Protein Electrophoresis Note See comment . [facility] Comment on above: Protein electrophore sis scan will follow via computer,mail, or it technician delivery.Performed at: [email or web address] [place] [id number] Director: Jeyson Duncan PhD, Phone: [phone] Serum Immunofixation Comment: . [facility] Comment on above: Presence of monoclon al protein is unclear at this time. Suggestrepeat in 3 to 6 months if clinically indicated. Urine Random Prot Electrophor Note See comment . [facility] Comment on above: Protein electrophore sis scan will follow via computer,mail, or it technician delivery.Performed at: [email or web address] [place], [place] [id number] Director: Jeyson Duncan PhD, Phone: [phone] Nucleated erythrocytes [Pres ence] in Blood by Automated countOrdered By: Zoey Ramirez on 08-17-2022 Nucleated RBC Auto Ql (Bld) 0.1 /100{WBC} 0-0.5 [facility] Platelet mean volume Auto (B ld) [Entitic vol]Ordered By: Zoey Ramirez on 08-17-2022 Platelet mean volume (Bld) [Entitic vol] 8.5 fL 6.3-10.7 [facility] Platelets Auto (Bld) [#/Vol] Ordered By: Zoey Ramirez on 08-17-2022 Platelets (Bld) [#/Vol] 345 10*3/uL 150-450 [facility] Potassium [Moles/volume] in Serum or PlasmaOrdered By: Zoey Ramirez on 08-17-2022 Potassium [Moles/Vol] 4.7 mmol/L 3.5-5.1 [facility] Protein [Mass/volume] in Ser um or PlasmaOrdered By: Zoey Ramirez on 08-17-2022 Protein [Mass/Vol] 8.1 g/dL 6.4-8.9 [facility] Protein [Mass/Vol] 8.0 g/dL 6.0-8.5 [facility] Protein [Mass/volume] in Uri neOrdered By: Zoey Ramirez on 08-17-2022 Protein (U) [Mass/Vol] 75.0 mg/dL Not Estab. Fi [facility] Protein.monoclonal/Protein.t otal in 24 hour Urine by ElectrophoresisOrdered By: Zoey Ramirez on 08-17-2022 Protein.monoclonal Elph (24H U) [Mass fraction] Not observed % Not Observed [facility] RBC Auto (Bld) [#/Vol]Ordere d By: Zoey Ramirez on 08-17-2022 RBC (Bld) [#/Vol] 5.31 10*6/uL 3.60-5.00 [facility] Serum globulin measurement ( mass/volume)Ordered By: Zoey Ramirez on 08-17-2022 Globulin (S) [Mass/Vol] 4.3 g/dL 2.2-3.9 [facility] Serum or plasma albumin/glob ulin mass ratioOrdered By: Zoey Ramirez on 08-17-2022 Albumin/Globulin [Mass ratio] 1.0 {ratio} [facility] Albumin/Globulin [Mass ratio] 0.9 {ratio} 0.7-1.7 [facility] Serum or plasma alpha 1 glob ulin measurement by electrophoresis (mass/volume)Ordered By: Zoey Ramirez on 08-17-2022 Alpha 1 globulin Elph [Mass/Vol] 0.3 g/dL 0.0-0.4 [facility] Serum or plasma alpha 2 glob ulin measurement by electrophoresis (mass/volume)Ordered By: Zoey Ramirez on 08-17-2022 Alpha 2 globulin Elph [Mass/Vol] 0.8 g/dL 0.4-1.0 [facility] Serum or plasma anion gap de terminationOrdered By: Zoey Ramirez 08-17-2022 Anion gap [Moles/Vol] 12.8 mmol/L 6.0-15.0 [facility] Serum or plasma beta globuli n measurement by electrophoresis (mass/volume)Ordered By: Zoey Ramirez 08-17-2022 Beta globulin Elph [Mass/Vol] 1.3 g/dL 0.7-1.3 [facility] Serum or plasma gamma globul in measurement by electrophoresis (mass/volume)Ordered By: Zoey Ramirez 08-17-2022 Gamma globulin Elph [Mass/Vol] 1.9 g/dL 0.4-1.8 [facility] Sodium [Moles/volume] in Ser um or PlasmaOrdered By: Zoey Ramirez on 08-17-2022 Sodium [Moles/Vol] 136 mmol/L 136-145 [facility] Transferrin [Mass/volume] in Serum or PlasmaOrdered By: Zoey Ramirez on 08-17-2022 Transferrin [Mass/Vol] 246 mg/dL 203-362 [facility] Urea nitrogen [Mass/volume] in Serum or PlasmaOrdered By: Zoey Ramirez on 08-17-2022 Urea nitrogen [Mass/Vol] 23 mg/dL 11-16 [facility] Urine alpha 1 globulin/total protein by electrophoresisOrdered By: Zoey Ramirez on 08-17-2022 Alpha 1 globulin Elph (U) [Mass fraction] 4.5 % . [facility] Urine alpha 2 globulin/total protein ratio by electrophoresisOrdered By: Zoeyelvin Ramirez on 08-17-2022 Alpha 2 globulin Elph (U) [Mass fraction] 7.7 % . [facility] Urine beta globulin measurem ent by electrophoresis (mass/volume)Ordered By: Zoeyelvin Ramirez on 08-17-2022 Beta globulin Elph (U) [Mass/Vol] 12.6 % . [facility] Vitamin B12 ser/plasOrdered By: Zoeyelvin Ramirez on 08-17-2022 Cobalamin (Vitamin B12) [Mass/Vol] 387 pg/mL 180-914 [facility] WBC Auto (Bld) [#/Vol]Ordere d By: Zoey Ramirez on 08-17-2022 WBC (Bld) [#/Vol] 9.9 10*3/uL 3.8-11.6 [facility] Established Visit (Orthopaed ic Surgery)on 08-11-2022 [...] to do her outpatient physical therapy at [facility]. She has a few visits left. [...] on 07-23-2022 Albumin [Mass/Vol] 3.3 g/dL 2.9-4.4 [facility] Creatine kinase [Enzymatic a ctivity/volume] in Serum or PlasmaOrdered By: Lorrie Baig on 07-23-2022 CK [Catalytic activity/Vol] 51 U/L 30-223 [facility] Erythrocyte sedimentation ra te by Photometric methodOrdered By: Lorrie Baig on 07-23-2022 ESR Photometric method (Bld) [Velocity] 65 mm/hr 0-29 [facility] Folate [Mass/volume] in Seru m or PlasmaOrdered By: Lorrie Baig on 07-23-2022 Folate [Mass/Vol] 12.8 ng/mL >5.9 [facility] Comment on above: Folate reference ran ge: >5.9 ng/mlThe WHO technical consultation on folate and vitamin [id number] has determined that folate concentrations lessthan 4 ng/ml are considered deficient. Magnesium [Mass/volume] in S hugo or PlasmaOrdered By: Lorrie Baig on 07-23-2022 Magnesium [Mass/Vol] 1.8 mg/dL 1.9-2.7 [facility] No Panel InformationOrdered By: Lorrie Baig on 07-23-2022 Protein Electrophoresis Interpret See comment . [facility] Comment on above: Faint band in gamma region suspicious for monoclonalimmunoglobulin. This band may represent a benign spike asseen in older people or could be a paraprotein as seen inMultiple Myeloma, Waldenstrom's Macroglobulinemia orLymphoma. Depending on clinical circumstances, furtherdiagnostic studies may include serum immunofixation orserum free light chain quantitation.Performed at: [place] [id number] Director: Jeyson Duncan PhD, Phone: [phone] Protein Electrophoresis M-Antwan Comment: g/dL Not Observed [facility] Comment on above: ASYMMETRICAL GAMMA Protein Electrophoresis Note See comment . [facility] Comment on above: Protein electrophore sis scan will follow via computer,mail, or it technician delivery. Phosphate [Mass/volume] in S hugo or PlasmaOrdered By: Lorrie Baig on 07-23-2022 Phosphate [Mass/Vol] 4.5 mg/dL 3.7-7.2 [facility] Protein [Mass/volume] in Ser um or PlasmaOrdered By: Lorrie Baig on 07-23-2022 Protein [Mass/Vol] 7.2 g/dL 6.0-8.5 [facility] Serum globulin measurement ( mass/volume)Ordered By: Lorrie Baig on 07-23-2022 Globulin (S) [Mass/Vol] 3.9 g/dL 2.2-3.9 [facility] Serum or plasma albumin/glob ulin mass ratioOrdered By: Lorrie Baig on 07-23-2022 Albumin/Globulin [Mass ratio] 0.8 {ratio} 0.7-1.7 [facility] Serum or plasma alpha 1 glob ulin measurement by electrophoresis (mass/volume)Ordered By: Lorrie Baig on 07-23-2022 Alpha 1 globulin Elph [Mass/Vol] 0.3 g/dL 0.0-0.4 [facility] Serum or plasma alpha 2 glob ulin measurement by electrophoresis (mass/volume)Ordered By: Lorrie Baig on 07-23-2022 Alpha 2 globulin Elph [Mass/Vol] 0.7 g/dL 0.4-1.0 [facility] Serum or plasma beta globuli n measurement by electrophoresis (mass/volume)Ordered By: Lorrie Baig on 07-23-2022 Beta globulin Elph [Mass/Vol] 1.2 g/dL 0.7-1.3 [facility] Serum or plasma gamma globul in measurement by electrophoresis (mass/volume)Ordered By: Lorrie Baig on 07-23-2022 Gamma globulin Elph [Mass/Vol] 1.7 g/dL 0.4-1.8 [facility] Thyrotropin [Units/volume] i n Serum or PlasmaOrdered By: Lorrie Baig on 07-23-2022 TSH Qn 4.76 m[IU]/L 0.45-5.33 [facility] Vitamin B12 ser/plasOrdered By: Lorrie Baig on 07-23-2022 Cobalamin (Vitamin B12) [Mass/Vol] 358 pg/mL 180-914 [facility] KNEE 3 VIEWSon 07-14-2022 KNEE 3 VIEWS Patient Name: GEETA SHELTON STUDY: KNEE; 3 VIEWS; Right; 07/14/2022 8:47 am INDICATION: pain Z96.659: Status post total knee replacement. ACCESSION NUMBER(S): [id number] ORDERING CLINICIAN: ACOSTA SCHAFER FINDINGS: Right knee three views. Status post revision type total knee replacement components in good position no signs of fracture dislocation or other bony abnormality dee in the soft tissues anteriorly. Electronically signed by: ACOSTA SCHAFER MD [facility] Post Op (Orthopaedic Surgery )on 07-14-2022 Post [...] she will most likely do this at [facility] in [place]. Physical exam General: No acute distress and [...] Diagnostics Please see dictated x-ray report Procedure Gipsy removed Steri-Strips placed without complication Assessment Status [...] grammatical areas may persist related to the [employer] software Merrill Alejandro PA-C . Active Problems Problems Acute pain of both knees (338.19,719.46) (M25.561,M25.562) Status post total knee replacement (V43.65) (Z96.659) Allergies Medication Penicillins Recorded By: Tarsha Murray; 05/18/2022 8:47:33 AM Current Meds Medication NameInstruction Xarelto 10 MG Oral TabletTake 1 tablet daily Results/Data Xray Knee 3 [id number] 08:47AMSAcosta steward Test NameResultFlagReference Xray Knee 3 View(Report) FINAL REPORT Interpreted by: ACOSTA SCHAFER BURTON, MD 07/14/22 08:49 Patient Name: GEETA SHELTON STUDY: KNEE; 3 VIEWS; Right; 07/14/2022 8:47 am INDICATION: pain Z96.659: Status post total knee replacement. ACCESSION NUMBER(S): [id number] ORDERING CLINICIAN: ACOSTA SCHAFER FINDINGS: Right knee [...] Radiologyon 07-14-2022 XR Knee 3 Views Normal -[facility] Work Phone: Basic Metabolic Panel Reflex Mgon 07-03-2022 Anion gap [Moles/Vol] 10 mmol/L Normal 9-15 [facility] Comment on above: Performed By: #### B MPX #### [facility] [address] [place] [address] Calcium [Mass/Vol] 9.2 mg/dL Normal 8.5-9.9 [facility] Comment on above: Performed By: #### B MPX #### [facility] [address] [place] [address] Chloride [Moles/Vol] 100 mmol/L Normal 95-107 [facility] Comment on above: Performed By: #### B MPX #### [facility] [address] [place] [address] CO2 [Moles/Vol] 27 mmol/L Normal 20-31 [facility] Comment on above: Performed By: #### B MPX #### [facility] [address] [place] [address] Creatinine [Mass/Vol] 0.51 mg/dL Normal 0.50-0.90 [facility] Comment on above: Performed By: #### B MPX #### [facility] [address] [place] [address] GFR >60.0 Normal >60 [facility] Comment on above: Result Comment: Pedi atric [...] secretion. Performed By: #### B MPX #### [facility] [address] [place] [address] Glucose [Mass/Vol] 132 mg/dL Critically high 70-99 [facility] Comment on above: Performed By: #### B MPX #### [facility] [address] [place] [address] Magnesium [Moles/Vol] 4.6 mmol/L Normal 3.4-4.9 [facility] Comment on above: Performed By: #### B MPX #### [facility] [address] [place] [address] Sodium [Moles/Vol] 137 mmol/L Normal 135-144 [facility] Comment on above: Performed By: #### B MPX #### [facility] [address] [place] [address] Urea nitrogen [Mass/Vol] 12 mg/dL Normal 6-20 [facility] Comment on above: Performed By: #### B MPX #### [facility] [address] [place] [address] Basic Metabolic Panel w/ Ref hillary to MGon 07-03-2022 Anion gap [Moles/Vol] 10 mmol/L [facility] [employer] Calcium [Mass/Vol] 9.2 mg/dL 8.5 - 9.9 mg/dL [facility] [employer] Chloride [Moles/Vol] 100 mmol/L [facility] [employer] CO2 [Moles/Vol] 27 mmol/L [facility] [employer] Creatinine [Mass/Vol] 0.51 mg/dL 0.50 - 0.90 mg/dL [facility] [employer] GFR/1.73 sq M.predicted MDRD (S/P/Bld) [Vol rate/Area] 60 - PINF [facility] Comment on above: Pediatric calculator link [...] mg/dL High 70 - 99 mg/dL [facility] - [employer] Interpretation and review of laboratory results Abnormal [facility] [employer] Potassium reflex Magnesium 4.6 [facility] [employer] Sodium [Moles/Vol] 137 mmol/L [facility] Urea nitrogen (BldV) [Mass/Vol] 12 mg/dL 6 - 20 mg/dL [facility] CBCon 07-03-2022 Hematocrit (Bld) [Volume fraction] 39.9 % 37.0 - 47.0 % [facility] Hemoglobin (Bld) [Mass/Vol] 12.9 g/dL 12.0 - 16.0 g/dL [facility] Interpretation and review of laboratory results Abnormal [facility] MCH (RBC) [Entitic mass] 25.7 pg Low 27. 0 - 31.3 pg [facility] MCHC (RBC) [Mass/Vol] 32.3 % Low 33.0 - 37.0 % [facility] MCV (RBC) [Entitic vol] 79.6 fL 79.4 - 94.8 fL [facility] Platelet distribution width (Bld) [Ratio] 16.5 % High 11.5 - 14.5 % [facility] Platelets (Bld) [#/Vol] 230 10*3/uL 130 - 400 K/uL [facility] RBC (Bld) [#/Vol] 5.02 10*6/uL [facility] WBC (Bld) [#/Vol] 9.2 10*3/uL 4.8 - 10.8 K/uL [facility] CBC With Platelet No Differe ntialon 07-03-2022 Erythrocyte distribution width (RBC) [Ratio] 16.5 % Critically high 11.5-14.5 [facility] Comment on above: Performed By: #### C BCND #### [facility] [address] [place] [address] Hematocrit (Bld) [Volume fraction] 39.9 % Normal 37.0-47.0 [facility] Comment on above: Performed By: #### C BCND #### [facility] [address] [place] [address] Hemoglobin (Bld) [Mass/Vol] 12.9 g/dL Normal 12.0-16.0 [facility] Comment on above: Performed By: #### C BCND #### [facility] [address] [place] [address] MCH (RBC) [Entitic mass] 25.7 pg Low 27.0-31.3 [facility] Comment on above: Performed By: #### C BCND #### [facility] [address] [place] [address] MCHC 32.3 % Low 33.0-37.0 [facility] Comment on above: Performed By: #### C BCND #### [facility] [address] [place] [address] MCV (RBC) [Entitic vol] 79.6 fL Normal 79.4-94.8 [facility] Comment on above: Performed By: #### C BCND #### [facility] [address] [place] [address] Platelets (Bld) [#/Vol] 230 10*3/uL Normal 130-400 [facility] Comment on above: Performed By: #### C BCND #### [facility] [address] [place] [address] RBC (Bld) [#/Vol] 5.02 10*6/uL Normal 4.20-5.40 [facility] Comment on above: Performed By: #### C BCND #### [facility] [address] [place] [address] WBC (Bld) [#/Vol] 9.2 10*3/uL Normal 4.8-10.8 [facility] Comment on above: Performed By: #### C BCND #### [facility] [address] [place] [address] Basic Metabolic Panel Reflex Mgon 07-02-2022 Anion gap [Moles/Vol] 8 mmol/L Low 9-15 [facility] Comment on above: Order Comment: Colle ction has been rescheduled by VALDO at 07/02/2022 05:49 Reason: Come back last per lauren reinoso Performed By: #### B MPX #### [facility] [address] [place] [address] Calcium [Mass/Vol] 8.9 mg/dL Normal 8.5-9.9 [facility] Comment on above: Order Comment: Daja zamarripa has been rescheduled by HERAM at 07/02/2022 05:49 Reason: Come back last per rn fouzia Performed By: #### B MPX #### [facility] [address] [place] [address] Chloride [Moles/Vol] 100 mmol/L Normal 95-107 [facility] Comment on above: Order Comment: Daja zamarripa has been rescheduled by HERAM at 07/02/2022 05:49 Reason: Come back last per rn fouzia Performed By: #### B MPX #### [facility] [address] [place] [address] CO2 [Moles/Vol] 27 mmol/L Normal 20-31 [facility] Comment on above: Order Comment: Daja zamarripa has been rescheduled by HERAM at 07/02/2022 05:49 Reason: Come back last per rn fouzia Performed By: #### B MPX #### [facility] [address] [place] [address] Creatinine [Mass/Vol] 0.61 mg/dL Normal 0.50-0.90 [facility] Comment on above: Order Comment: Daja zamarripa has been rescheduled by HERAM at 07/02/2022 05:49 Reason: Come back last per rn fouzia Performed By: #### B MPX #### [facility] [address] [place] [address] GFR >60.0 Normal >60 [facility] Comment on above: Order Comment: Daja zamarripa [...] secretion. Performed By: #### B MPX #### [facility] [address] [place] [address] Glucose [Mass/Vol] 144 mg/dL Critically high 70-99 [facility] Comment on above: Order Comment: Daja zamarripa has been rescheduled by HERMICHELLE at 07/02/2022 05:49 Reason: Come back last per lauren reinoso Performed By: #### B MPX #### [facility] [address] [place] [place] [address] Magnesium [Moles/Vol] 4.8 mmol/L Normal 3.4-4.9 [facility] Comment on above: Order Comment: Daja zamarripa has been rescheduled by HERMICHELLE at 07/02/2022 05:49 Reason: Come back last per rn fouzia Performed By: #### B MPX #### [facility] [address] [place] [address] Sodium [Moles/Vol] 135 mmol/L Normal 135-144 [facility] Comment on above: Order Comment: Daja zamarripa has been rescheduled by HERMICHELLE at 07/02/2022 05:49 Reason: Come back last per lauren reinoso Performed By: #### B MPX #### [facility] [address] [place] [address] Urea nitrogen [Mass/Vol] 21 mg/dL Critically high 6-20 [facility] Comment on above: Order Comment: Daja zamarripa has been rescheduled by HERAM at 07/02/2022 05:49 Reason: Come back last per lauren reinoso Performed By: #### B MPX #### [facility] [address] [place] [address] Basic Metabolic Panel w/ Ref hillary to MGon 07-02-2022 Anion gap [Moles/Vol] 8 mmol/L Low [facility] Calcium [Mass/Vol] 8.9 mg/dL 8.5 - 9.9 mg/dL [facility] Chloride [Moles/Vol] 100 mmol/L [facility] CO2 [Moles/Vol] 27 mmol/L [facility] Creatinine [Mass/Vol] 0.61 mg/dL 0.50 - 0.90 mg/dL [facility] GFR/1.73 sq M.predicted MDRD (S/P/Bld) [Vol rate/Area] 60 - PINF [facility] Comment on above: Pediatric calculator link [...] 144 mg/dL High 70 - 99 mg/dL [facility] Interpretation and review of laboratory results Abnormal [facility] Potassium reflex Magnesium 4.8 [facility] Sodium [Moles/Vol] 135 mmol/L [facility] Urea nitrogen (BldV) [Mass/Vol] 21 mg/dL High 6 - 20 mg/dL [facility] Collection has been rescheduled by VALDO at 07/02/2022 05:49 Reason: Come back last per lauren galdamezfouzia [facility] CBCon 07-02-2022 Hematocrit (Bld) [Volume fraction] 40.3 % 37.0 - 47.0 % [facility] Hemoglobin (Bld) [Mass/Vol] 12.9 g/dL 12.0 - 16.0 g/dL [facility] Interpretation and review of laboratory results Abnormal [facility] MCH (RBC) [Entitic mass] 25.5 pg Low 27. 0 - 31.3 pg [facility] MCHC (RBC) [Mass/Vol] 32.1 % Low 33.0 - 37.0 % [facility] MCV (RBC) [Entitic vol] 79.6 fL 79.4 - 94.8 fL [facility] Platelet distribution width (Bld) [Ratio] 16.3 % High 11.5 - 14.5 % [facility] Platelets (Bld) [#/Vol] 230 10*3/uL 130 - 400 K/uL [facility] RBC (Bld) [#/Vol] 5.06 10*6/uL [facility] WBC (Bld) [#/Vol] 9.1 10*3/uL 4.8 - 10.8 K/uL [facility] Collection has been rescheduled by HERMICHELLE at 07/02/2022 05:49 Reason: Come back last per lauren reinoso [facility] CBC With Platelet No Differe ntialon 07-02-2022 Erythrocyte distribution width (RBC) [Ratio] 16.3 % Critically high 11.5-14.5 [facility] Comment on above: Order Comment: Daja zamarripa has been rescheduled by VALDO at 07/02/2022 05:49 Reason: Come back last per lauren reinoso Performed By: #### C BCND #### [facility] [address] [facility] [address] Hematocrit (Bld) [Volume fraction] 40.3 % Normal 37.0-47.0 [facility] Comment on above: Order Comment: Daja zamarripa has been rescheduled by VALDO at 07/02/2022 05:49 Reason: Come back last per lauren reinoso Performed By: #### C BCND #### [facility] [address] [facility] [address] [facility] [address] Hemoglobin (Bld) [Mass/Vol] 12.9 g/dL Normal 12.0-16.0 [facility] Comment on above: Order Comment: Daja ctjanie has been rescheduled by VALDO at 07/02/2022 05:49 Reason: Come back last per lauren reinoso Performed By: #### C BCND #### [facility] [address] [place] [address] MCH (RBC) [Entitic mass] 25.5 pg Low 27.0-31.3 [facility] Comment on above: Order Comment: Daja ctjanie has been rescheduled by HERAM at 07/02/2022 05:49 Reason: Come back last per rn fouzia Performed By: #### C BCND #### [facility] [address] [place] [address] MCHC 32.1 % Low 33.0-37.0 [facility] Comment on above: Order Comment: Daja ctjanie has been rescheduled by HERAM at 07/02/2022 05:49 Reason: Come back last per rn fouzia Performed By: #### C BCND #### [facility] [address] [place] [address] MCV (RBC) [Entitic vol] 79.6 fL Normal 79.4-94.8 [facility] Comment on above: Order Comment: Daja ctjanie has been rescheduled by HERAM at 07/02/2022 05:49 Reason: Come back last per rn fouzia Performed By: #### C BCND #### [facility] [address] [place] [address] Platelets (Bld) [#/Vol] 230 10*3/uL Normal 130-400 [facility] Comment on above: Order Comment: Daja zamarripa has been rescheduled by HERAM at 07/02/2022 05:49 Reason: Come back last per rn fouzia Performed By: #### C BCND #### [facility] [address] [facility] [place] [address] RBC (Bld) [#/Vol] 5.06 10*6/uL Normal 4.20-5.40 [facility] Comment on above: Order Comment: Daja ctjanie has been rescheduled by HERAM at 07/02/2022 05:49 Reason: Come back last per rn fouzia Performed By: #### C BCND #### [facility] [address] [place] [address] WBC (Bld) [#/Vol] 9.1 10*3/uL Normal 4.8-10.8 [facility] Comment on above: Order Comment: Daja zamarripa has been rescheduled by VALDO at 07/02/2022 05:49 Reason: Come back last per rn fouzia Performed By: #### C BCND #### [facility] [address] [place] [address] US DUP UPPER EXTREMITY LEFT VENOUSon 07-02-2022 [...] Jean Sifuentes MD 07/02/22 Final result Normal [facility] No evidence of DVT. [facility] EXAMINATION: VENOUS ULTRASOUND OF THE [...] color flow study and spectral analysis. [facility] Jean Sifuentes MD - 07/02/2022 [...] spectral analysis. IMPRESSION: No evidence of DVT. [employer] Work Phone: [employer] Phone: Radiology Study observation (narrative) JULIO [employer] Phone: XR KNEE RIGHT (1-2 VIEWS)on 07-01-2022 [...] Jean Sifuentes MD 07/01/22 Final result Normal [facility] Normal postsurgical appearance [facility] EXAMINATION: TWO XRAY VIEWS OF [...] intact. Overlying surgical dee are seen [facility] Jean Sifuentes MD - 07/01/2022 [...] dee are seen IMPRESSION: Normal postsurgical appearance [employer] Work Phone: Radiology Study observation (narrative) [employer] Phone: XR KNEE RIGHT (1-2 VIEWS)Ord ered By: Jean Sifuentes on 07-01-2022 [employer] Work Phone: MRSA DNA Probe, Nasalon -0 MRSA, DNA, Nasal Negative NEG [employer] Comment on above: NEGATIVE: MRSA DNA n ot detected by nucleic acid amplification. Results should be used as an adjunct to nosocomial control efforts to identify patients needing enhanced precautions. The test is not intended to identify patients with staphylococcal infections. Results should not be used to guide or monitor treatment for MRSA infections. [employer] [address] [place] [phone] ([phone] Specimen Description Swab Puzzlium MRSA, DNA, Nasalon MRSA, DNA, Nasal Negative Normal NEG [facility] Comment on above: Result Comment: NEGA TIVE: MRSA DNA not detected by nucleic acid amplification. Results should be used as an adjunct to nosocomial control efforts to identify patients needing enhanced precautions. The test is not intended to identify patients with staphylococcal infections. Results should not be used to guide or monitor treatment for MRSA infections. [employer] [address] [place] [address] [phone] Performed By: #### I MRSA #### [facility] [address] [place] [address] EKG 12 LeadOrdered By: Leigh Ann Nash on 06-25-2022 Atrial Rate 73 BPM [employer] Work Phone: P [place] 33 degrees [facility] Work Phone: P-R Interval 160 ms [employer] Work Phone: Q-T Interval 406 ms [employer] Work Phone: QRS Duration 102 ms [employer] Work Phone: QTc Calculation (Bazett) 447 ms [employer] Work Phone: R [place] 74 degrees [employer] Phone: T [place] 65 degrees [employer] Work Phone: Ventricular Rate 73 BPM [facility] [employer] Work Phone: [facility] Work Phone: EKG 12 Leadon 06-25-2022 Normal sinus rhythm Incomplete right bundle branch block Confirmed by LEIGH ANN NASH ([id number]) on 06/25/2022 6:49:48 PM Leigh Ann Sunmer, DO - 06/25/2022 Normal sinus rhythm Incomplete right bundle branch block Confirmed by LEIGH ANN NASH ([id number]) on 06/25/2022 6:49:48 PM [employer] Work Phone: Established Visit (Orthopaed ic Surgery)on [...] plans on performing outpatient physical therapy at [facility] in [place]. All of the patient's questions and concerns [...] today's treatment with some difficulty. Evaluation Code: 03140 PT Eval: Low Complexity, 32 min(s). Resources provided today: education Signatures Electronically signed by : Natali Tyson, PT DPT; Jun 30 2022 10:08AM EST (Author) Normal [facility] APTTon 06-24-2022 aPTT Coag (Bld) [Time] 30.1 s YECENIA Nohelia [facility] Comment on above: Effective 02/27/2020: Heparin Therapeutic Range: 64.0 98.0 seconds. [facility] CBC With Platelet and Differ entialon 06-24-2022 Basophils (Bld) [#/Vol] 0.1 10*3/uL Normal 0.0-0.2 [facility] Comment on above: Performed By: #### C BCWD #### [facility] [address] [place] [address] Basophils/100 WBC (Bld) 0.6 % Normal [facility] Comment on above: Performed By: #### C BCWD #### [facility] [address] [place] [address] Eosinophils (Bld) [#/Vol] 0.1 10*3/uL Normal 0.0-0.7 [facility] Comment on above: Performed By: #### C BCWD #### [facility] [address] [place] [address] Eosinophils/100 WBC (Bld) 1.6 % Normal [facility] Comment on above: Performed By: #### C BCWD #### [facility] [address] [place] [address] Erythrocyte distribution width (RBC) [Ratio] 16.4 % Critically high 11.5-14.5 [facility] Comment on above: Performed By: #### C BCWD #### [facility] [address] [place] [address] Hematocrit (Bld) [Volume fraction] 44.4 % Normal 37.0-47.0 [facility] Comment on above: Performed By: #### C BCWD #### [facility] [address] [place] [address] Hemoglobin (Bld) [Mass/Vol] 14.2 g/dL Normal 12.0-16.0 [facility] Comment on above: Performed By: #### C BCWD #### [facility] [address] [place] [address] Lymphocytes (Bld) [#/Vol] 2.3 10*3/uL Normal 1.0-4.8 [facility] Comment on above: Performed By: #### C BCWD #### [facility] [address] [place] [address] Lymphocytes/100 WBC (Bld) 25.8 % Normal [facility] Comment on above: Performed By: #### C BCWD #### [facility] [address] [place] [address] MCH (RBC) [Entitic mass] 25.1 pg Low 27.0-31.3 [facility] Comment on above: Performed By: #### C BCWD #### [facility] [address] [place] [address] MCHC 32.0 % Low 33.0-37.0 [facility] Comment on above: Performed By: #### C BCWD #### [facility] [address] [place] [address] MCV (RBC) [Entitic vol] 78.5 fL Low 79.4-94.8 [facility] Comment on above: Performed By: #### C BCWD #### [facility] [address] [place] [address] Monocytes (Bld) [#/Vol] 0.8 10*3/uL Normal 0.2-0.8 [facility] Comment on above: Performed By: #### C BCWD #### [facility] [address] [place] [address] Monocytes/100 WBC (Bld) 9.4 % Normal [facility] Comment on above: Performed By: #### C BCWD #### [facility] [address] [place] [address] Neutrophils (Bld) [#/Vol] 5.6 10*3/uL Normal 1.4-6.5 [facility] Comment on above: Performed By: #### C BCWD #### [facility] [address] [place] [address] Neutrophils/100 WBC (Bld) 62.6 % Normal [facility] Comment on above: Performed By: #### C BCWD #### [facility] [address] [place] [address] Platelets (Bld) [#/Vol] 281 10*3/uL Normal 130-400 [facility] Comment on above: Performed By: #### C BCWD #### [facility] [address] [place] [address] RBC (Bld) [#/Vol] 5.66 10*6/uL Critically high 4.20-5.40 [facility] Comment on above: Performed By: #### C BCWD #### [facility] [address] [place] [address] WBC (Bld) [#/Vol] 8.9 10*3/uL Normal 4.8-10.8 [facility] Comment on above: Performed By: #### C BCWD #### [facility] [address] [place] [address] CBC with Auto Differentialon 06-24-2022 Basophils (Bld) [#/Vol] 0.1 10*3/uL 0.0 - 0.2 K/uL [facility] Basophils/100 WBC (Bld) 0.6 % [facility] Eosinophils (Bld) [#/Vol] 0.1 10*3/uL 0.0 - 0.7 K/uL [facility] Eosinophils/100 WBC (Bld) 1.6 % [facility] Hematocrit (Bld) [Volume fraction] 44.4 % 37.0 - 47.0 % [facility] Hemoglobin (Bld) [Mass/Vol] 14.2 g/dL 12.0 - 16.0 g/dL [facility] Interpretation and review of laboratory results Abnormal [facility] Lymphocytes (Bld) [#/Vol] 2.3 10*3/uL 1.0 - 4.8 K/uL [facility] Lymphocytes/100 WBC (Bld) 25.8 % [facility] MCH (RBC) [Entitic mass] 25.1 pg Low 27. 0 - 31.3 pg [facility] MCHC (RBC) [Mass/Vol] 32.0 % Low 33.0 - 37.0 % [facility] MCV (RBC) [Entitic vol] 78.5 fL Low 79.4 - 94.8 fL [facility] Monocytes (Bld) [#/Vol] 0.8 10*3/uL 0.2 - 0.8 K/uL [facility] Monocytes/100 WBC (Bld) 9.4 % [facility] Neutrophils Absolute 5.6 K/uL 1.4 - 6 .5 K/uL [facility] Neutrophils/100 WBC (Bld) 62.6 % [facility] Platelet distribution width (Bld) [Ratio] 16.4 % High 11.5 - 14.5 % [facility] Platelets (Bld) [#/Vol] 281 10*3/uL 130 - 400 K/uL [facility] RBC (Bld) [#/Vol] 5.66 10*6/uL High [facility] WBC (Bld) [#/Vol] 8.9 10*3/uL 4.8 - 10.8 K/uL [facility] Comprehensive Metabolic Pane gretel 06-24-2022 Albumin [Mass/Vol] 4.2 g/dL Normal 3.5-4.6 [facility] Comment on above: Performed By: #### U MARIA ELENA #### [facility] [address] [place] [address] ALP [Catalytic activity/Vol] 89 U/L Normal 40-130 [facility] Comment on above: Performed By: #### U MARIA ELENA #### [facility] [address] [place] [address] ALT [Catalytic activity/Vol] 47 U/L Critically high 0-33 [facility] Comment on above: Performed By: #### U MARIA ELENA #### [facility] [address] [place] [address] Anion gap [Moles/Vol] 13 mmol/L Normal 9-15 [facility] Comment on above: Performed By: #### U MARIA ELENA #### [facility] [address] [place] [address] AST [Catalytic activity/Vol] 44 U/L Critically high 0-35 [facility] Comment on above: Performed By: #### U MARIA ELENA #### [facility] [address] [place] [address] Bilirubin [Mass/Vol] 0.5 mg/dL Normal 0.2-0.7 [facility] Comment on above: Performed By: #### U MARIA ELENA #### [facility] [address] [place] [address] Calcium [Mass/Vol] 9.2 mg/dL Normal 8.5-9.9 [facility] Comment on above: Performed By: #### U MARIA ELENA #### [facility] [address] [place] [address] Chloride [Moles/Vol] 100 mmol/L Normal 95-107 [facility] Comment on above: Performed By: #### U MARIA ELENA #### [facility] [address] [place] [address] CO2 [Moles/Vol] 26 mmol/L Normal 20-31 [facility] Comment on above: Performed By: #### U MARIA ELENA #### [facility] [address] [place] [address] Creatinine [Mass/Vol] 0.54 mg/dL Normal 0.50-0.90 [facility] Comment on above: Performed By: #### U MARIA ELENA #### [facility] [address] [place] [address] GFR >60.0 Normal >60 [facility] Comment on above: Result Comment: Myra camarac [...] Performed By: #### U MARIA ELENA #### [facility] [address] [place] [address] Globulin (S) [Mass/Vol] 3.9 g/dL Critically high 2.3-3.5 [facility] Comment on above: Performed By: #### U MARIA ELENA #### [facility] [address] [place] [address] Glucose [Mass/Vol] 124 mg/dL Critically high 70-99 [facility] Comment on above: Performed By: #### U MARIA ELENA #### [facility] [address] [place] [address] Potassium [Moles/Vol] 4.4 mmol/L Normal 3.4-4.9 [facility] Comment on above: Performed By: #### U MARIA ELENA #### [facility] [address] [place] [address] Protein [Mass/Vol] 8.1 g/dL Critically high 6.3-8.0 [facility] Comment on above: Performed By: #### U MARIA ELENA #### [facility] [address] [place] [address] Sodium [Moles/Vol] 139 mmol/L Normal 135-144 [facility] Comment on above: Performed By: #### U MARIA ELENA #### [facility] [address] [place] [address] Urea nitrogen [Mass/Vol] 14 mg/dL Normal 6-20 [facility] Comment on above: Performed By: #### U MARIA ELENA #### [facility] [address] [place] [address] Albumin [Mass/Vol] 4.2 g/dL 3.5 - 4.6 g/dL [facility] ALP (Bld) [Catalytic activity/Vol] 89 U/L 40 - 130 U/L [facility] [facility] ALT [Catalytic activity/Vol] 47 U/L High 0 - 33 U/L [facility] Anion gap [Moles/Vol] 13 mmol/L [facility] AST [Catalytic activity/Vol] 44 U/L High 0 - 35 U/L [facility] Bilirubin [Mass/Vol] 0.5 mg/dL 0.2 - 0 .7 mg/dL [facility] Calcium [Mass/Vol] 9.2 mg/dL 8.5 - 9.9 mg/dL [facility] Chloride [Moles/Vol] 100 mmol/L [facility] CO2 [Moles/Vol] 26 mmol/L [facility] Creatinine [Mass/Vol] 0.54 mg/dL 0.50 - 0.90 mg/dL [facility] GFR/1.73 sq M.predicted MDRD (S/P/Bld) [Vol rate/Area] 60 - PINF [facility] Comment on above: Pediatric calculator link [...] 3.9 g/dL High 2.3 - 3.5 g/dL [facility] Glucose [Mass/Vol] 124 mg/dL High 70 - 99 mg/dL [facility] Interpretation and review of laboratory results Abnormal [facility] Potassium [Moles/Vol] 4.4 mmol/L [facility] Protein [Mass/Vol] 8.1 g/dL High 6.3 - 8.0 g/dL [facility] Sodium [Moles/Vol] 139 mmol/L [facility] Urea nitrogen (BldV) [Mass/Vol] 14 mg/dL 6 - 20 mg/dL [facility] Laboratory - Coagulationon 0 06-24-2022 INR Coag (Bld) [Relative time] 1.1 {INR} Normal [facility] Work Phone: Laboratory - Hematology and Cell countson 06-24-2022 Basophils/100 WBC (Bld) 0.6 % [facility] Work Phone: Eosinophils/100 WBC (Bld) 1.6 % Normal [facility] Work Phone: Lymphocytes/100 WBC (Bld) 25.8 % Normal [facility] Work Phone: Monocytes/100 WBC (Bld) 9.4 % Normal [facility] Work Phone: [phone] Neutrophils/100 WBC (Bld) 62.6 % Normal [facility] Work Phone: MRSA, DNA, Nasalon 3 Specimen Description Swab Normal [facility] Comment on above: Performed By: #### I MRSA #### [facility] [address] [place] [address] Microscopic Urinalysison Bacteria, UA FEW Abnormal Negative /HPF [facility] Epithelial Cells, UA 0-2 [facility] Hyaline Casts, UA 0-1 [facility] RBC, UA 0-2 [facility] WBC, UA 3-5 [facility] No Panel Informationon 06-24 Interpretation and review of laboratory results Abnormal [facility] TRACE Abnormal Negative [facility] Work Phone: [phone] Negative Normal Negative [facility] Work Phone: [phone] 0.2 {E.U./dL} Normal < 2.0 [facility] Work Phone: [phone] 30 mg/dL Abnormal Negative [facility] Work Phone: [phone] 7.0 1 Normal 5.0-9.0 [facility] Work Phone: [phone] Not Indicated Normal [facility] Work Phone: [phone] 1.010 1 Normal 1.005-1.03 [facility] Work Phone: [phone] Clear Normal Clear [facility] Work Phone: [phone] Yellow Normal Straw/Harnett [facility] Work Phone: [phone] 0-2 Normal 0-5 [facility] Work Phone: [phone] 3-5 Normal 0-5 [facility] Work Phone: [phone] 0-1 Normal 0-5 [facility] Work Phone: [phone] FEW Abnormal Negative [facility] Work Phone: [phone] 281 K/uL Normal 130-400 [facility] Work Phone: [phone] 16.4 % above high threshold 11.5-14.5 [facility] Work Phone: [phone] 32.0 % below low threshold 33.0-37.0 [facility] Work Phone: [phone] 0.1 K/uL Normal 0.0-0.2 [facility] Work Phone: [phone] 0.8 K/uL Normal 0.2-0.8 [facility] Work Phone: [phone] 2.3 K/uL Normal 1.0-4.8 [facility] Work Phone: [phone] 5.6 K/uL Normal 1.4-6.5 [facility] Work Phone: [phone] 25.1 pg below low threshold 27.0-31.3 [facility] Work Phone: [phone] 78.5 fL below low threshold 79.4-94.8 [facility] Work Phone: 44.4 % Normal 37.0-47.0 [facility] Work Phone: 14.2 g/dL Normal 12.0-16.0 [facility] Work Phone: [phone] 5.66 {M/uL} above high threshold 4.20-5.40 [facility] Work Phone: [phone] 8.9 K/uL Normal 4.8-10.8 [facility] Work Phone: 14.8 {sec} Normal 12.3-14.9 [facility] Work Phone: 30.1 {sec} Normal 24.4-36.8 [facility] Work Phone: Comment on above: Effective 02/27/2020: Heparin Therapeutic Range: 64.0 ? 98.0 seconds. 4.2 g/dL Normal 3.5-4.6 [facility] Work Phone: [phone] 3.9 g/dL above high threshold 2.3-3.5 [facility] Work Phone: [phone] U/L above high threshold 0-35 [facility] [...] [facility] Work Phone: 4.4 {mEq/L} Normal 3.4-4.9 [facility] Work Phone: 139 {mEq/L} Normal 135-144 [facility] Work Phone: Negative Normal NEG [facility] Work Phone: Comment on above: NEGATIVE: MRSA DNA n ot detected by nucleic acid amplification. Results should be used as an adjunct to nosocomial control efforts toidentify patients needing enhanced precautions.The test is not intended to identify patients with staphylococcalinfections. Results should not be used to guide or monitor treatmentfor MRSA infections.Complete[employer] [address] ([phone] Swab Normal [facility] Work Phone: Partial Thromboplastin Timeo n 06-24-2022 aPTT Coag (Bld) [Time] 30.1 s Normal 24.4-36.8 [facility] Comment on above: Result Comment: Effe ctive 02/27/2020: Heparin Therapeutic Range: 64.0 ? 98.0 seconds. Performed By: #### U MARIA ELENA #### [facility] [address] [facility] [address] Prothrombin Timeon INR Coag (PPP) [Relative time] 1.1 {INR} Normal [facility] Comment on above: Performed By: #### P T #### [facility] [address] [facility] [address] PT Coag (PPP) [Time] 14.8 s Normal 12.3-14.9 [facility] Comment on above: Performed By: #### P T #### [facility] [address] [facility] [address] Protime-INRon 06-24-2022 INR Coag (Bld) [Relative time] 1.1 {INR} [facility] PT Coag (PPP) [Time] 14.[address] [facility] [employer] TYPE AND SCREENon 06-24-2022 ABO/Rh Negative [facility] [employer] Comment on above: @06/24/22 14:01 by Elaina FISCHER: BACK TYPE CONFIRMED IN TUBE. LMB Confirmation type ne eds to be drawn. [facility] Type and 3 cell Screen OB Ca ptureon 06-24-2022 Type and 3 cell Screen OB Capture PATIENT: PINKY Prince LOC: [place] BILL# : [id number] : 1970 SEX: F ORDERED BY: GILMAR COX ORDERED : 06/24/2022 11:08 COLLECTED: 06/24/2022 11:45 ORDER : [id number] RECEIVED : 06/24/2022 11:45 Confirmation type needs to be drawn. --- TEST NAME RESULT UNITS RANGES ABN FL ST ABORH Capture A NEG F @06/24/22 14:01 by RUDY: BACK TYPE CONFIRMED IN TUBE. LMB Antibody 3 Cell Scrn Captu NEG F -- Normal [facility] Comment on above: Performed By: #### T SO3C #### [facility] [address] [facility] [address] Urinalysis with Reflex to Cu ltureon 06-24-2022 Bilirubin Urine Negative Negative [facility] Blood, Urine Negative Negative [facility] Clarity, UA Clear Clear [facility] [employer] Color, UA Yellow Straw/Harnett ow [facility] [employer] Glucose, Ur Negative Negative mg/dL [facility] [employer] Ketones Ql (U) Negative Negative mg/dL [facility] Leukocyte esterase Test strip Ql (U) TRACE Abnormal Negative [facility] Nitrite, Urine Negative Negative [facility] pH, UA 7.0 5.0 - 9.0 [facility] Protein (U) [Mass/Vol] 30 mg/dL Abnormal Negative [facility] Specific [place], UA 1.010 1.005 - 1.030 [facility] Urine Reflex to Culture Not Indicated [facility] Urobilinogen, Urine 0.2 NINF [facility] Urinalysis, reflex to cultur gurinder 06-24-2022 Urine Reflexed to Culture Not Indicated Normal [facility] Comment on above: Performed By: #### U AR #### [facility] [address] [place] [address] Bilirubin Ql (U) Negative Normal Negative [facility] Comment on above: Performed By: #### U AR #### [facility] [address] [place] [address] Clarity (U) Clear Normal Clear [facility] Comment on above: Performed By: #### U AR #### [facility] [address] [place] [address] Color (U) Yellow Normal Straw/Harnett [facility] Comment on above: Performed By: #### U AR #### [facility] [address] [place] [address] Glucose Ql (U) Negative Normal Negative [facility] Comment on above: Performed By: #### U AR #### [facility] [address] [place] [address] Hemoglobin Ql (U) Negative Normal Negative [facility] Comment on above: Performed By: #### U AR #### [facility] [address] [place] [address] Ketones Ql (U) Negative Normal Negative [facility] Comment on above: Performed By: #### U AR #### [facility] [address] [place] [address] Leukocyte esterase Test strip Ql (U) TRACE Abnormal Negative [facility] Comment on above: Performed By: #### U AR #### [facility] [address] [place] [address] Nitrite Ql (U) Negative Normal Negative [facility] Comment on above: Performed By: #### U AR #### [facility] [address] [place] [address] pH (U) 7.0 [pH] Normal 5.0-9.0 [facility] Comment on above: Performed By: #### U AR #### [facility] [address] [place] [address] Protein Ql (U) 30 mg/dL Abnormal Negative [facility] Comment on above: Performed By: #### U AR #### [facility] [address] [place] [address] Specific gravity (U) [Rel density] 1.010 Normal 1.005-1.03 [facility] Comment on above: Performed By: #### U AR #### [facility] [address] [place] [address] Urobilinogen Qn (U) 0.2 {Reji'U}/dL Normal < 2.0 [facility] Comment on above: Performed By: #### U AR #### [facility] [address] [place] [address] Urine Microscopicon 06-25-19 23 Urine Bacteria FEW Abnormal Negative [facility] Comment on above: Performed By: #### U MARIA ELENA #### [facility] [address] [place] [address] Urine Epithelial Cells Auto 0-2 Normal 0-5 [facility] Comment on above: Performed By: #### U MARIA ELENA #### [facility] [address] [place] [address] Urine Hyaline Casts Auto 0-1 Normal 0-5 [facility] Comment on above: Performed By: #### U MARIA ELENA #### [facility] [address] [place] [address] Urine RBC Auto 0-2 Normal 0-5 [facility] Comment on above: Performed By: #### U MARIA ELENA #### [facility] [address] [place] [address] Urine WBC Auto 3-5 Normal 0-5 [facility] Comment on above: Performed By: #### U MARIA ELENA #### [facility] [address] [place] [address] BILATERAL KNEE COMPLT, 4 OR MORE VIEWSon 05-18-2022 BILATERAL KNEE COMPLT, 4 OR MORE VIEWS Patient Name: GEETA SHELTON STUDY: BILATERAL KNEE; COMPLT, 4 OR MORE VIEWS; ; 05/18/2022 9:07 am INDICATION: pain M25.561: Acute pain of both knees M25.562:. ACCESSION NUMBER(S): [id number] ORDERING CLINICIAN: ACOSTA SCHAFER FINDINGS: Weightbearing four [...] Electronically signed by: ACOSTA SCHAFER MD Normal [facility] Initial Visit (Orthopaedic S urgery)on 05-18-2022 [...] voice recognition (more content not included)... [facility] Rad[facility] 05-18-2022 XR Knee 4 Views Normal [facility] Work Phone: Albumin [Mass/volume] in Ser um or PlasmaOrdered By: Elizabeth Alvarado on 05-07-2022 Albumin [Mass/Vol] 3.9 g/dL 3.2-5.5 [facility] Alkaline phosphatase [Enzyma tic activity/volume] in Serum or PlasmaOrdered By: Elizabeth Alvarado on 05-07-2022 ALP [Catalytic activity/Vol] 83 U/L 32-92 [facility] Aspartate aminotransferase [ Enzymatic activity/volume] in Serum or PlasmaOrdered By: Elizabeth Alvarado on 05-07-2022 AST [Catalytic activity/Vol] 56 U/L 10-42 [facility] Basophils Auto (Bld) [#/Vol] Ordered By: Elizabeth Alvarado on 05-07-2022 Basophils (Bld) [#/Vol] 0.1 10*3/uL 0.0-0.2 [facility] Basophils/100 WBC Auto (Bld) Ordered By: Elizabeth Alvarado on 05-07-2022 Basophils/100 WBC (Bld) 0.7 % . [facility] Bilirubin.total [Mass/volume ] in Serum or PlasmaOrdered By: Elizabeth Alvarado on 05-07-2022 Bilirubin [Mass/Vol] 0.6 mg/dL 0.3-1.2 [facility] Calcium [Mass/volume] in Ser um or PlasmaOrdered By: Elizabeht Alvarado on 05-07-2022 Calcium [Mass/Vol] 9.1 mg/dL 8.2-10.2 [facility] Carbon dioxide, total [Moles /volume] in Serum or PlasmaOrdered By: Elizabeth Alvarado on 05-07-2022 CO2 [Moles/Vol] 28.1 mmol/L 22.0-30.0 [facility] Chloride [Moles/volume] in S hugo or PlasmaOrdered By: Elizabeth Alvarado on 05-07-2022 Chloride [Moles/Vol] 100 mmol/L 95-114 [facility] Cholesterol [Mass/volume] in Serum or PlasmaOrdered By: Elizabeth Alvarado on 05-07-2022 Cholesterol [Mass/Vol] 181 mg/dL 140-200 [facility] Comment on above: Chol less than 200 m g/dl low riskChol 201-239 mg/dl borderline riskChol 240 mg/dl and greater high risk Cholesterol in LDL Calc [Mas s/Vol]Ordered By: Elizabeth Alvarado on 05-07-2022 Cholesterol in LDL [Mass/Vol] 102 mg/dL 0-100 [facility] Comment on above: LDL ATP III CLASSIFI CATIONLDL less than 100 mg/dL OptimalLDL 100-129 mg/dL Near or above optimalLDL 130-159 mg/dL Borderline highLDL 160-189 mg/dL HighLDL greater than 189 mg/dL Very high Cholesterol in VLDL Calc [Ma ss/Vol]Ordered By: Elizabeth Alvarado on 05-07-2022 Cholesterol in VLDL [Mass/Vol] 20 mg/dL [facility] Creatinine and Glomerular fi ltration rate.predicted panel (S/P/Bld)Ordered By: Elizabeth Alvarado on 05-07-2022 Creatinine [Mass/Vol] 0.65 mg/dL 0.44-1.03 [facility] Eosinophils Auto (Bld) [#/Vo l]Ordered By: Elizabeth Alvarado on 05-07-2022 Eosinophils (Bld) [#/Vol] 0.1 10*3/uL 0.0-0.45 [facility] Eosinophils/100 WBC Auto (Bl d)Ordered By: Elizabeth Alvarado on 05-07-2022 Eosinophils/100 WBC (Bld) 1.8 % . [facility] Erythrocyte distribution wid th Auto (RBC) [Ratio]Ordered By: Elizabeth Alvarado on 05-07-2022 Erythrocyte distribution width (RBC) [Ratio] 17.8 % 11.9-15.3 [facility] Estimated glomerular filtrat ion rate (GFR) non- AmericanOrdered By: Elizabeth Alvarado on 05-07-2022 GFR/1.73 sq M.predicted among non-blacks MDRD (S/P/Bld) [Vol rate/Area] > 60 mL/Min [facility] Globulin Calc (S) [Mass/Vol] Ordered By: Elizabeth Alvarado on 05-07-2022 Globulin (S) [Mass/Vol] 3.7 g/dL [facility] Glucose [Mass/volume] in Ser um or PlasmaOrdered By: Elizabeth Alvarado on 05-07-2022 Glucose [Mass/Vol] 137 mg/dL 70-100 [facility] Comment on above: ADA recommended refe rence rangeRandom Glucose Reference Range is dependent on time and content of last meal. Glucose of more than 200 mg/dL in a nonstressed, ambulatory subject supports the diagnosis of Diabetes Mellitus. Hematocrit Auto (Bld) [Volum e fraction]Ordered By: Elizabeth Alvarado on 05-07-2022 Hematocrit (Bld) [Volume fraction] 45.4 % 34.0-46.4 [facility] Hemoglobin [Mass/volume] in BloodOrdered By: Elizabeth Alvarado on 05-07-2022 Hemoglobin (Bld) [Mass/Vol] 14.1 g/dL 11.8-15.4 [facility] Leukocytes [#/volume] correc silverio for nucleated erythrocytes in Blood by Automated counOrdered By: Elizabeth Alvarado on 05-07-2022 WBC corrected for nucl RBC Auto (Bld) [#/Vol] 7.9 10*3/uL 3.8-11.6 [facility] Lymphocytes Auto (Bld) [#/Vo l]Ordered By: Elizabeth Alvarado on 05-07-2022 Lymphocytes (Bld) [#/Vol] 2.4 10*3/uL 1.00-4.8 [facility] Lymphocytes/100 WBC Auto (Bl d)Ordered By: Elizabeth Alvarado on 05-07-2022 Lymphocytes/100 WBC (Bld) 30.9 % . [facility] MCH Auto (RBC) [Entitic mass ]Ordered By: Elizabeth Alvarado on 05-07-2022 MCH (RBC) [Entitic mass] 24.6 pg 24.7-34.3 [facility] MCHC Auto (RBC) [Mass/Vol]Or dered By: Elizabeth Alvarado on 05-07-2022 MCHC (RBC) [Mass/Vol] 31.0 g/dL 32.0-35.0 [facility] MCV Auto (RBC) [Entitic vol] Ordered By: Elizabeth Alvarado on 05-07-2022 MCV (RBC) [Entitic vol] 79.4 fL 80-100 [facility] Monocytes Auto (Bld) [#/Vol] Ordered By: Elizabeth Alvarado on 05-07-2022 Monocytes (Bld) [#/Vol] 0.7 10*3/uL 0.0-0.8 [facility] Monocytes/100 WBC Auto (Bld) Ordered By: Elizabeth Alvarado on 05-07-2022 Monocytes/100 WBC (Bld) 9.3 % . [facility] Neutrophils Auto (Bld) [#/Vo l]Ordered By: Elizabeth Alvarado on 05-07-2022 Neutrophils (Bld) [#/Vol] 4.5 10*3/uL 1.8-7.7 [facility] Neutrophils/100 WBC Auto (Bl d)Ordered By: Elizabeth Alvarado on 05-07-2022 Neutrophils/100 WBC (Bld) 57.3 % . [facility] No Panel InformationOrdered By: Elizabeth Alvarado on 05-07-2022 Estimated GFR () > 60 mL/Min [facility] Comment on above: GFR estimated refere nce range: According to KDOQI guidelines, <60 ml/min/1.73m2 is sufficient to diagnose a patient with chronic kidney disease. Pharmacy Creatinine Clearance (Chem N/A [facility] Nucleated erythrocytes [Pres ence] in Blood by Automated countOrdered By: Elizabeth Alvarado on 05-07-2022 Nucleated RBC Auto Ql (Bld) 0.1 /100{WBC} 0-0.5 [facility] Platelet mean volume Auto (B ld) [Entitic vol]Ordered By: Elizabeth Alvarado on 05-07-2022 Platelet mean volume (Bld) [Entitic vol] 9.4 fL 6.3-10.7 [facility] Platelets Auto (Bld) [#/Vol] Ordered By: Elizabeth Alvarado on 05-07-2022 Platelets (Bld) [#/Vol] 242 10*3/uL 150-450 [facility] Potassium [Moles/volume] in Serum or PlasmaOrdered By: Elizabeth Alvarado on 05-07-2022 Potassium [Moles/Vol] 4.3 mmol/L 3.5-5.1 [facility] Protein [Mass/volume] in Ser um or PlasmaOrdered By: Elizabeth Alvarado on 05-07-2022 Protein [Mass/Vol] 7.6 g/dL 6.1-7.9 [facility] RBC Auto (Bld) [#/Vol]Ordere d By: Elizabeth Alvarado on 05-07-2022 RBC (Bld) [#/Vol] 5.72 10*6/uL 3.60-5.00 [facility] Serum or plasma alanine ulloa otransferase measurement without P-5'-P (enzymatic activiOrdered By: Elizabeth Alvarado on 05-07-2022 ALT No additional P-5'-P [Catalytic activity/Vol] 61 U/L 10-60 [facility] Serum or plasma albumin/glob ulin mass ratioOrdered By: Elizabeth Alvarado on 05-07-2022 Albumin/Globulin [Mass ratio] 1.1 {ratio} [facility] Serum or plasma anion gap de terminationOrdered By: Elizabeth Alvarado on 05-07-2022 Anion gap [Moles/Vol] 11.2 mmol/L 6.0-15.0 [facility] Serum or plasma high density lipoprotein (HDL) cholesterol measurementOrdered By: lEizabeth Alvarado on 05-07-2022 Cholesterol in HDL [Mass/Vol] 58 mg/dL 35-85 [facility] Comment on above: HDL CHOL ATP-III CLA SSIFICATION Cardiovascular RiskHDL > or equal to 60 mg/dL LOWHDL < 40 mg/dL HIGH Serum or plasma total choles terol/high density lipoprotein (HDL) cholesterol mass ratOrdered By: Elizabeth Alvarado on 05-07-2022 Cholesterol.total/Choles terol in HDL [Mass ratio] 3.1 {ratio} <5.0 [facility] Sodium [Moles/volume] in Ser um or PlasmaOrdered By: Elizabeth Alvarado on 05-07-2022 Sodium [Moles/Vol] 135 mmol/L 136-146 [facility] TSH DL <= 0.005 mIU/L QnOrde red By: Elizabeth Alvarado on 01-13-2023 TSH Qn 4.21 m[IU]/L 0.45-5.33 [facility] Triglyceride [Mass/volume] i n Serum or PlasmaOrdered By: Elizabeth Alvarado on 05-07-2022 Triglyceride [Mass/Vol] 103 mg/dL 35-149 [facility] Comment on above: TRIG ATP III CLASSIF ICATIONTRIG less than 150 mg/dL NormalTRIG 150-199 mg/dL Borderline highTRIG 200-500 mg/dL High TRIG greater than 500 mg/dL Very highStandard traceable to the Center for Disease Conrtrol and Prevention (CDC) test method. Urea nitrogen [Mass/volume] in Serum or PlasmaOrdered By: Elizabeth Alvarado on 05-07-2022 Urea nitrogen [Mass/Vol] 14 mg/dL 01-15 [facility] WBC Auto (Bld) [#/Vol]Ordere d By: Elizabeth Alvarado on 05-07-2022 WBC (Bld) [#/Vol] 7.9 10*3/uL 3.8-11.6 [facility] Basophils Auto (Bld) [#/Vol] Ordered By: Tyler Villeda on 04-13-2022 Basophils (Bld) [#/Vol] 0.1 10*3/uL 0.0-0.2 [facility] Basophils/100 WBC Auto (Bld) Ordered By: Tyler Villeda on 04-13-2022 Basophils/100 WBC (Bld) 0.6 % . [facility] C reactive protein [Mass/vol ume] in Serum or PlasmaOrdered By: Tyler Villeda on 04-13-2022 CRP [Mass/Vol] 2.1 mg/dL 0.0-1.0 [facility] Eosinophils Auto (Bld) [#/Vo l]Ordered By: Tyler Villeda on 04-13-2022 Eosinophils (Bld) [#/Vol] 0.2 10*3/uL 0.0-0.45 [facility] Eosinophils/100 WBC Auto (Bl d)Ordered By: yTler Villeda on 04-13-2022 Eosinophils/100 WBC (Bld) 2.0 % . [facility] Erythrocyte distribution wid th Auto (RBC) [Ratio]Ordered By: Tyler Villeda on 04-13-2022 Erythrocyte distribution width (RBC) [Ratio] 17.6 % 11.9-15.3 [facility] Erythrocyte sedimentation ra te by Photometric methodOrdered By: Tyler Villeda on 04-13-2022 ESR Photometric method (Bld) [Velocity] 54 mm/hr 0-29 [facility] Hematocrit Auto (Bld) [Volum e fraction]Ordered By: Tyler Villeda on 04-13-2022 Hematocrit (Bld) [Volume fraction] 44.4 % 34.0-46.4 [facility] Hemoglobin [Mass/volume] in BloodOrdered By: Tyler Villeda on 04-13-2022 Hemoglobin (Bld) [Mass/Vol] 14.3 g/dL 11.8-15.4 [facility] Leukocytes [#/volume] correc silverio for nucleated erythrocytes in Blood by Automated counOrdered By: Tyler Villeda on 04-13-2022 WBC corrected for nucl RBC Auto (Bld) [#/Vol] 8.6 10*3/uL 3.8-11.6 [facility] Lymphocytes Auto (Bld) [#/Vo l]Ordered By: Tyler Villeda on 04-13-2022 Lymphocytes (Bld) [#/Vol] 2.9 10*3/uL 1.00-4.8 [facility] Lymphocytes/100 WBC Auto (Bl d)Ordered By: Tyler Villeda on 04-13-2022 Lymphocytes/100 WBC (Bld) 33.6 % . [facility] MCH Auto (RBC) [Entitic mass ]Ordered By: Tyler Villeda on 04-13-2022 MCH (RBC) [Entitic mass] 24.9 pg 24.7-34.3 [facility] MCHC Auto (RBC) [Mass/Vol]Or dered By: Tyler Villeda on 04-13-2022 MCHC (RBC) [Mass/Vol] 32.2 g/dL 32.0-35.0 [facility] MCV Auto (RBC) [Entitic vol] Ordered By: yTler Villeda on 04-13-2022 MCV (RBC) [Entitic vol] 77.4 fL 80-100 [facility] Monocytes Auto (Bld) [#/Vol] Ordered By: Tyler Villeda on 04-13-2022 Monocytes (Bld) [#/Vol] 0.9 10*3/uL 0.0-0.8 [facility] Monocytes/100 WBC Auto (Bld) Ordered By: Tyler Villeda on 04-13-2022 Monocytes/100 WBC (Bld) 10.0 % . [facility] Neutrophils Auto (Bld) [#/Vo l]Ordered By: Tyler Villeda on 04-13-2022 Neutrophils (Bld) [#/Vol] 4.6 10*3/uL 1.8-7.7 [facility] Neutrophils/100 WBC Auto (Bl d)Ordered By: Tyler Villeda on 04-13-2022 Neutrophils/100 WBC (Bld) 53.8 % . [facility] Nucleated erythrocytes [Pres ence] in Blood by Automated countOrdered By: Tyler Villeda on 04-13-2022 Nucleated RBC Auto Ql (Bld) 0.1 /100{WBC} 0-0.5 [facility] Platelet mean volume Auto (B ld) [Entitic vol]Ordered By: Tyler Villeda on 04-13-2022 Platelet mean volume (Bld) [Entitic vol] 9.1 fL 6.3-10.7 [facility] Platelets Auto (Bld) [#/Vol] Ordered By: Tyler Villeda on 04-13-2022 Platelets (Bld) [#/Vol] 296 10*3/uL 150-450 [facility] RBC Auto (Bld) [#/Vol]Ordere d By: Tyler Villeda on 04-13-2022 RBC (Bld) [#/Vol] 5.73 10*6/uL 3.60-5.00 [facility] WBC Auto (Bld) [#/Vol]Ordere d By: Tyler Villeda on 04-13-2022 WBC (Bld) [#/Vol] 8.6 10*3/uL 3.8-11.6 [facility] Serum or plasma follitropin measurement (units/volume)Ordered By: Elizabeth Alvarado on 12-03-2021 Follitropin Qn 18.3 m[IU]/mL [facility] Comment on above: FEMALE NORMALS (JUDIE ENOPAUSE) MID-FOLLICULAR PHASE: 3.9-8.8 mIU/mL MID-CYCLE PEAK: 4.5-22.5 mIU/mL MID-LUTEAL PHASE: 1.8-5.1 mIU/mL FEMALE NORMALS (POSTMENOPAUSE): 16.7-113.6 mIU/mL MALE NORMALS: 1.3-19.3 mIU/mL TSH DL <= 0.005 mIU/L QnOrde red By: Elizabeth Alvarado on 12-03-2021 TSH Qn 4.23 m[IU]/L 0.45-5.33 [facility] Total estrogen measurementOr dered By: Elizabeth Alvarado on 12-03-2021 Estrogen [Mass/Vol] 83 pg/mL . [facility] Comment on above: Prepubertal < 40 Female Cycle: 1-10 Days 16 - 328 11-20 Days 34 - 501 21-30 Days 48 - 350 Post-Menopausal 40 - 244 Performed at: [facility] [address] [id number] Canvas Cutter: Virgie Isaac MD, Phone: [phone] Coding Summary.on 01-26-2019 Coding Summary. CODING DATE: 019 FINAL [facility] STATUS: Home (Routine DC) PAYOR: Medicare APC DESCRIPTION 5113 Level 3 Musculoskeletal Procedures ADMIT DX: REASON FOR VISIT DX: M76.61 Achilles tendinitis, right leg FINAL DX: PRINCIPAL: M76.61 Achilles tendinitis, right leg SECONDARY: M24.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, right ankle I10 Essential (primary) hypertension J45.909 Unspecified asthma, uncomplicated K21.9 Gastro-esophageal reflux disease without esophagitis Z79.899 Other intermediate (current) drug therapy PYMT PROC APC STAT DESCRIPTION DOCTOR NAME DATE 44673 9083 J1 Tenotomy, percutaneous, Thuan Travis DPM 01/24/2019 Achilles tendon (separate procedure); general anesthesia RT Right side (used to identify procedures performed on the right side of the body) 36984 Anesthesia for Shahab Almanzar Jr., DO 01/24/2019 [...] Revised Date Saved: 01/26/2019 11:32 am Normal [facility] Inpatient Patient Summaryon 01-24-2019 Inpatient Patient Summary [facility] Clinical Discharge Instructions PERSON INFORMATION Name: GEETA SHELTON PHYSICIANS Admitting Physician: Thuan Travis DPM Attending Physician: Thuan Travis DPM PCP: Nichole Caballero Discharge Diagnosis: Comment: PATIENT EDUCATION INFORMATION Instructions: Post Op Patient Instructions - FT (Custom); Foot Cryocuff Patient Instructions - FT (Custom); Brown - Post Operative Instructions (Revised 12/20/13) (Custom) ([id number]) Medication Leaflets: Follow up: MEDICATION LIST Comment: Normal [facility] Lyteson 01-24-2019 Anion gap [Moles/Vol] 14 mmol/L Normal 6-16 [facility] Comment on above: Performed By: #### 2 463731, 5945602, 3829558, 81472232, 9779188, 6215265 #### [facility] Laboratory [address] [place] [address] Chloride [Moles/Vol] 107 mmol/L Normal 101-111 [facility] Comment on above: Performed By: #### 2 144925, 9559465, 7475121, 33134690, 2431561, 0374599 #### [facility] [address] [address] CO2 [Moles/Vol] 23 mmol/L Normal 21-31 [facility] Comment on above: Performed By: #### 2 735935, 2158967, 4093157, 68176691, 0969683, 0837502 #### [facility] Laboratory [address] [place] [address] Potassium [Moles/Vol] 4.9 mmol/L Normal 3.5-5.3 [facility] Comment on above: Performed By: #### 2 360814, 3039261, 6333807, 79922739, 3637706, 7945661 #### [facility] Laboratory [address] [place] [address] Sodium [Moles/Vol] 139 mmol/L Normal 135-145 [facility] Comment on above: Performed By: #### 2 557663, 8122723, 7512970, 54500027, 1488069, 1151966 #### [facility] Laboratory [address] [place] [address] Main OR Intraoperative Recor don 01-24-2019 Main OR Intraoperative Record IntraOp Document Type FT Summary Primary Physician: Thuan Travis DPM Finalized Date/Time: 01/24/19 11:33:24 Pt. Name: GEETA SHELTON/Sex: 1970 Female Med Rec #: [id number] Physician: Thuan Travis DPM Financial #: [id number] Pt. Type: A Room/Bed: [facility] Admit/Disch: 01/24/19 07:58:48 - Institution: Case [...] Cheryl Role Performed Anesthesiologist Surgeon - Primary HYDROPULPER Security Control Room Officer Time In 01/24/19 08:48:00 01/24/19 09:00:00 01/24/19 [...] Zuly Duarte CST, Prashant Panda Role Performed Film Touch Up Inspector - Primary Film Touch Up Inspector - Other Scrub - Primary Time In [...] AGUILAR, CNOR, Alpa AGUILAR, Zuly Luna, Gerald EXPLOSIVES MIXER OPERATOR, R, Gerald QUIROZ, Prashant Panda Outcomes Met? [...] to transfer/transport General Comments: REPORT GIVEN TO FACILITIES MAINTENANCE SUPERVISORRN. Cy PRIDE RN Dressing/Packing FT Pre-Care [...] BLANKET MISTRAL AIR Quantity 1 Aid TORSO [[id number]][F] Fluid/[place] Unit Mistral warming system Setting HIGH/43 Body Site Upper anterior torso Last Modified By: Kallie Gunter RN 01/24/19 08:46:43 Case Comments Finalized By: Maye Silverio CST Document Signatures Signed By: Kallie Gunter RN 01/24/19 09:26 Maye Silverio CST 01/24/19 11:33 Normal [facility] Main OR PACU I Recordon Main OR PACU I Record PACU Phase I Docum ent Type FT Summary Primary Physician: Thuan Travis DPM Finalized Date/Time: 01/24/19 10:08:45 Pt. Name: GEETA SHELTON/Sex: 1970 Female Med Rec #: [id number] Physician: Thuan Travis DPM Financial #: [id number] Pt. Type: A Room/Bed: Admit/Disch: 01/24/19 07:58:48 [...] By: Swathi Carr RN 01/24/19 10:08 Normal [facility] Main OR PACU II Recordon Main OR PACU II Record PACU Phase II Doc ument Type FT Summary Primary Physician: Thuan Travis DPM Finalized Date/Time: 01/24/19 13:09:21 Pt. Name: GEETA SHELTON/Sex: 1970 Female Med Rec #: [id number] Physician: Thuan Travis DPM Financial #: [id number] Pt. Type: [place]lin Room/Bed: Admit/Disch: 01/24/19 07:58:48 [...] By: Keeley Putnam LPN 01/24/19 13:09 Normal [facility] Main OR Preoperative Recordo n 01-24-2019 Main OR Preoperative Record PreOp Document Type FT Summary Primary Physician: Thuan Travis DPM Finalized Date/Time: 01/24/19 09:12:07 Pt. Name: GEETA SHELTON/Sex: 1970 Female Med Rec #: [id number] Physician: Thuan Travis DPM Financial #: [id number] Pt. Type: A Room/Bed: [facility]/01 Admit/Disch: 01/24/19 07:58:48 - Institution: Case [...] By: Kallie Gunter RN 01/24/19 09:12 Normal [facility] Operative Reporton 9 Operative Report [...] first postoperative visit. Sania Pantoja Dictated: 01/24/2019 #[id number] Typed: 01/24/2019 #[id number] cc: Thuan Travis D.P.M. [facility] Comment on above: Result Comment: Elec tronically Signed By: Thuan Travis DPM\.br\Date and Time Signed: 01/24/19 10:24 EDT Patient Education - Texton 1 Patient Education - Text (Inserted Image . Unable to display) [place], [place] Thuan Travis DPM, FACFAS POST OPERATIVE [...] feel free to call the doctor at: [phone] or [phone] Travis paged. ___ Patient signature Date ___ Dr. Anand Sauer DPM, FACFAS Date Revised: 06-02 [facility] Progress Note-Physicianon Progress Note-Physician Patient: GEETA SHELTON [...] 1 ml. Complications: None. Anesthesia type: General. [facility] Comment on above: Result Comment: Elec tronically Signed By: Thuan Travis DPM\.br\Date and Time Signed: 01/24/19 09:27 EDT Coding Summary.on 01-12-2019 Coding Summary. CODING DATE: 019 [facility] STATUS: Home (Routine DC) PAYOR: Medicare [...] Olivarez CphT Date Saved: 01/12/2019 11:10 am [facility] BUNon 01-11-2019 Urea nitrogen [Mass/Vol] 29 mg/dL High 5-21 [facility] Comment on above: Performed By: #### 2 179520, 6615053, 3630357, 54599546, 4218786, 2794585 #### [facility] Laboratory [address] [place] [address] CBC w/Indiceson 01-11-2019 Erythrocyte distribution width (RBC) [Ratio] 16.1 % High 10.9-14.2 [facility] Comment on above: Performed By: #### 1 0561410, 6546672, 9062178, 6947330, 8624801 #### [facility] [address] [place] [address] Hematocrit (Bld) [Volume fraction] 42.1 % Normal 34.0-46.0 [facility] Comment on above: Performed By: #### 1 0694714, 1287762, 4725930, 0119781, 7267446 #### [facility] Laboratory [address] [place] [address] Hemoglobin (Bld) [Mass/Vol] 13.8 g/dL Normal 12.0-16.0 [facility] Comment on above: Performed By: #### 1 1160176, 7814921, 9104505, 6500232, 5515788 #### [facility] [address] [place] [address] MCH (RBC) [Entitic mass] 25.8 pg Low 27.0-34.0 [facility] Comment on above: Performed By: #### 1 0710658, 5734395, 7209601, 2178452, 4195244 #### [facility] [address] [place] [address] MCHC (RBC) [Mass/Vol] 32.8 g/dL Low 33.3-35.7 [facility] Comment on above: Performed By: #### 1 9800151, 4906528, 7848647, 0106338, 7295360 #### [facility] [address] [place] [address] MCV (RBC) [Entitic vol] 78.5 fL Low 80.0-100.0 [facility] Comment on above: Performed By: #### 1 3500456, 8188760, 2347962, 7002159, 7074619 #### [facility] [address] [place] [address] Platelet mean volume (Bld) [Entitic vol] 9.9 fL Normal 6.4-10.8 [facility] Comment on above: Performed By: #### 1 0054421, 2287664, 1927793, 7903530, 7373148 #### [facility] [address] [place] [address] Platelets (Bld) [#/Vol] 283.0 E9/L Normal 150. 0-500. 0 [facility] Comment on above: Performed By: #### 1 6937101, 7340230, 8089266, 0363264, 7987087 #### [facility] [address] [place] [address] RBC (Bld) [#/Vol] 5.4 E12/L Normal 4.3-5.9 [facility] Comment on above: Performed By: #### 1 7880350, 0723111, 3844715, 7785033, 2446682 #### [facility] [address] [place] [address] WBC corrected for nucl RBC Auto (Bld) [#/Vol] 8.6 E9/L Normal 4.0-11.0 [facility] Comment on above: Performed By: #### 1 5038363, 8537838, 6115961, 5801816, 5943003 #### [facility] [address] [place] [address] Creatinineon 01-11-2019 Creatinine [Mass/Vol] 1.0 mg/dL Normal 0.5-1.3 [facility] Comment on above: Performed By: #### 2 036730, 5454377, 0031144, 31428965, 5161391, 5075987 #### [facility] [address] [place] [address] Glucoseon 01-11-2019 Glucose [Mass/Vol] 95 mg/dL Normal 55-199 [facility] Comment on above: Performed By: #### 1 8177756, 8918462, 7064387, 1489239, 7931385 #### [facility] [address] [place] [address] eGFRon 01-11-2019 GFR/1.73 sq M predicted among blacks MDRD (S/P/Bld) [Vol rate/Area] mL/min/{1.73_m2} Normal >=59 [facility] Comment on above: Order Comment: Order added by Discern Expert. Result Comment: eGFR is race adjusted. AA=. Performed By: #### 2 901969, 6039652, 3030237, 43233490, 4368069, 5546290 #### [facility] [address] [place] [address] GFR/1.73 sq M predicted among non-blacks MDRD (S/P/Bld) [Vol rate/Area] 59 mL/min/1.73 m2 Normal >=59 [facility] Comment on above: Order Comment: Order added by Discern Expert. Result Comment: Preschool Paraprofessional stefanie kidney disease could be indicated at eGFR's of less than 60 mL/min/1.73m2. Kidney failure is indicated at less than 15 mL/min/1.73m2. Performed By: #### 2 351767, 7597899, 8483001, 62330635, 4041072, 1988810 #### [facility] [address] [place] [address] Coding Summary.on 12-15-2018 Coding Summary. CODING DATE: 019 FINAL [facility] STATUS: Home (Routine DC) PAYOR: Medicare [...] CphT Date Saved: 12/15/2018 01:36 pm Normal [facility] BUNon 12-14-2018 Urea nitrogen [Mass/Vol] 19 mg/dL Normal 5-21 [facility] Comment on above: Performed By: #### 2 752954, 3054667, 7619819, 55739334, 1531276, 4403122 #### [facility] [address] [place] [address] CBC w/Indiceson 12-14-2018 Erythrocyte distribution width (RBC) [Ratio] 17.1 % High 10.9-14.2 [facility] Comment on above: Performed By: #### 2 725530, 4259152, 8672752, 72945157, 9061814, 8989595 #### [facility] [address] [place] [address] Hematocrit (Bld) [Volume fraction] 41.5 % Normal 34.0-46.0 [facility] Comment on above: Performed By: #### 2 533099, 3929627, 0092612, 57309958, 0654906, 2048278 #### [facility] [address] [place] [address] Hemoglobin (Bld) [Mass/Vol] 13.2 g/dL Normal 12.0-16.0 [facility] Comment on above: Performed By: #### 2 241467, 9029229, 4363397, 10181024, 8565191, 5546852 #### [facility] [address] [place] [address] MCH (RBC) [Entitic mass] 25.0 pg Low 27.0-34.0 [facility] Comment on above: Performed By: #### 2 122514, 6838052, 5431007, 54467559, 8097275, 6784238 #### [facility] [address] [place] [address] MCHC (RBC) [Mass/Vol] 31.7 g/dL Low 33.3-35.7 [facility] Comment on above: Performed By: #### 2 302820, 8051427, 0647388, 31662720, 0831708, 5011128 #### [facility] [address] [place] [address] MCV (RBC) [Entitic vol] 78.7 fL Low 80.0-100.0 [facility] Comment on above: Performed By: #### 2 120851, 8527171, 1508477, 65918378, 1686761, 8535105 #### [facility] [address] [place] [address] Platelet mean volume (Bld) [Entitic vol] 9.4 fL Normal 6.4-10.8 [facility] Comment on above: Performed By: #### 2 070137, 6365766, 2570350, 11545122, 6407148, 8153542 #### [facility] Laboratory [address] [place] [address] Platelets (Bld) [#/Vol] 268.0 E9/L Normal 150. 0-500. 0 [facility] Comment on above: Performed By: #### 2 661459, 7804950, 0239628, 38591819, 1764893, 2580051 #### [facility] [address] [place] [address] RBC (Bld) [#/Vol] 5.3 E12/L Normal 4.3-5.9 [facility] Comment on above: Performed By: #### 2 280899, 1132000, 1391805, 67559023, 9126449, 2411300 #### [facility] [address] [place] [address] WBC corrected for nucl RBC Auto (Bld) [#/Vol] 10.6 E9/L Normal 4.0-11.0 [facility] Comment on above: Performed By: #### 2 637387, 1773036, 0185111, 20855145, 6396598, 6706428 #### [facility] Laboratory [address] [place] [address] Creatinineon 12-14-2018 Creatinine [Mass/Vol] 0.7 mg/dL Normal 0.5-1.3 [facility] Comment on above: Performed By: #### 2 330310, 0618988, 9719172, 18939641, 8406102, 5657338 #### [facility] [address] [place] [address] Glucoseon 12-14-2018 Glucose [Mass/Vol] 138 mg/dL Normal 55-199 [facility] Comment on above: Performed By: #### 2 769792, 8538294, 3513081, 00389188, 1354865, 3087039 #### [facility] [address] [place] [address] Lyteson 12-14-2018 Anion gap [Moles/Vol] 17 mmol/L High 6-16 [facility] Comment on above: Performed By: #### 2 137847, 5686120, 7719624, 74144199, 1927526, 2138578 #### [facility] [address] [place] [address] Chloride [Moles/Vol] 95 mmol/L Low 101-111 [facility] Comment on above: Performed By: #### 2 571167, 6516808, 7597769, 11865016, 0856592, 5729404 #### [facility] [address] [place] [address] CO2 [Moles/Vol] 26 mmol/L Normal 21-31 [facility] Comment on above: Performed By: #### 2 272841, 0842047, 5493450, 27592383, 6560823, 6024565 #### [facility] [address] [place] [address] Potassium [Moles/Vol] 3.9 mmol/L Normal 3.5-5.3 [facility] Comment on above: Performed By: #### 2 151494, 8284058, 3909682, 39090108, 1489844, 7218396 #### [facility] [address] [place] [address] Sodium [Moles/Vol] 134 mmol/L Low 135-145 [facility] Comment on above: Performed By: #### 2 726049, 3370558, 7407028, 81525934, 0399480, 8347561 #### [facility] [address] [place] [address] XR Chest 2 Viewson 9 XR Chest [...] MD Transcribed by: MAGEN Technologist: CC Normal [facility] eGFRon 12-14-2018 GFR/1.73 sq M predicted among blacks MDRD (S/P/Bld) [Vol rate/Area] mL/min/{1.73_m2} Normal >=59 [facility] Comment on above: Order Comment: Order added by Discern Expert. Result Comment: eGFR is race adjusted. AA=. Performed By: #### 2 648633, 6819324, 2149276, 15290738, 5443203, 2956177 #### [facility] [address] [place] [address] GFR/1.73 sq M predicted among non-blacks MDRD (S/P/Bld) [Vol rate/Area] mL/min/{1.73_m2} Normal >=59 [facility] Comment on above: Order Comment: Order added by Discern Expert. Result Comment: Preschool Paraprofessional stefanie kidney disease could be indicated at eGFR's of less than 60 mL/min/1.73m2. Kidney failure is indicated at less than 15 mL/min/1.73m2. Performed By: #### 2 711355, 2057319, 0311772, 01820659, 7032090, 0382605 #### [facility] [address] [place] [address] Vital Signs Date Time Vital Sign Value Performing Clinician Facility 09-30-2023 09:36-0400 Body height 165.1 cm PHYSICIAN NO [facility] 09-30-2023 09:36-0400 Body mass index (BMI) [Ratio] 46.2 kg/m2 PHYSICIAN NO [facility] 09-30-2023 09:36-0400 Body temperature 97.6 [degF] PHYSICIAN NO [facility] 09-30-2023 09:36-0400 Body weight 126.09 kg PHYSICIAN NO [facility] 09-30-2023 09:36-0400 Diastolic blood pressure 85 mm[Hg] PHYSICIAN NO [facility] 09-30-2023 09:36-0400 Heart rate 87 /min PHYSICIAN NO [facility] 09-30-2023 09:36-0400 Respiratory rate 20 /min PHYSICIAN NO [facility] 09-30-2023 09:36-0400 SaO2% (BldA) [Mass fraction] 98 % PHYSICIAN NO [facility] 09-30-2023 09:36-0400 Systolic blood pressure 139 mm[Hg] PHYSICIAN NO [facility] 03-02-2023 10:45-0500 Body height 165.1 cm Tyler Jean Other [employer] Other 03-02-2023 10:45-0500 Body mass index (BMI) [Ratio] 44.76 kg/m2 Tyler Jean Other [employer] Other 03-02-2023 10:45-0500 Body temperature 96.7 [degF] Tyler Jean Other [employer] Other 03-02-2023 10:45-0500 Body weight 122.02 kg Tyler Jean Other [employer] Other 03-02-2023 10:45-0500 Diastolic blood pressure 82 mm[Hg] Tyler Mcnamaratyler Other [employer] Other 03-02-2023 10:45-0500 Respiratory rate 18 /min Tyler Mcnamaratyler Other [employer] Other 03-02-2023 10:45-0500 SaO2% (BldA) [Mass fraction] 96 % Tyler Mcnamaratyler Other [employer] Other 03-02-2023 10:45-0500 Systolic blood pressure 136 mm[Hg] Tyler Ted Other [facility] [employer] Other 09-21-2022 09:11-0400 Body weight 128.72 kg FEED M[employer]ER Elizabeth Myerholtz Work Phone: [facility] 09-21-2022 09:11-0400 Diastolic blood pressure 91 mm[Hg] FEED MILLER Elizabeth Myerholtz Work Phone: [facility] 09-21-2022 09:11-0400 Heart rate 88 /min FEED MILLER Elizabeth Myerholtz Work Phone: [facility] 09-21-2022 09:11-0400 Respiratory rate 20 /min FEED MILLER Elizabeth Myerholtz Work Phone: [facility] 09-21-2022 09:11-0400 SaO2% (BldA) [Mass fraction] 96 % FEED MILLER Elizabeth Myerholtz Work Phone: [facility] 09-21-2022 09:11-0400 Systolic blood pressure 145 mm[Hg] FEED MILLER Elizabeth Myerholtz Work Phone: [facility] 08-16-2022 13:57-0400 Body temperature 98 [degF] FEED MILLER Elizabeth Myerholtz Work Phone: [facility] 08-16-2022 13:42-0400 Body height 165.1 cm RHEA Alvarado Work Phone: [facility] 07-03-2022 08:14-0500 Body temperature 97.9 [degF] Acosta Schafer MD Work Phone: [facility] [employer] [facility] [employer] 07-03-2022 08:14-0500 Diastolic blood pressure 70 mm[Hg] Acosta Schafer MD Work Phone: [employer] [facility] 07-03-2022 08:14-0500 Heart rate 83 /min Acosta Schafer MD Work Phone: [facility] 07-03-2022 08:14-0500 Respiratory rate 18 /min Acosta Schafer MD Work Phone: [facility] [employer] 07-03-2022 08:14-0500 SaO2% (BldA) [Mass fraction] 98 % Acosta Schafer MD Work Phone: [employer] [facility] 07-03-2022 08:14-0500 Systolic blood pressure 129 mm[Hg] Acosta Schafer MD Work Phone: [facility] 07-02-2022 09:45-0500 Body mass index (BMI) [Ratio] 50.66 kg/m2 Acosta Schafer MD Work Phone: [employer] [facility] 07-02-2022 09:45-0500 Body weight 129.73 kg Acosta Schafer MD Work Phone: [employer] [facility] 06-24-2022 11:20-0500 Body height 160 cm Juan Rn [employer] [facility] 06-24-2022 11:20-0500 Body mass index (BMI) [Ratio] 50.79 kg/m2 Juan Rn [facility] 06-24-2022 11:20-0500 Body temperature 97.9 [degF] Juan Rn [facility] [employer] 06-24-2022 11:20-0500 Body weight 130.05 kg Juan Rn JULIO DAMIR [facility] 06-24-2022 11:20-0500 Diastolic blood pressure 87 mm[Hg] Mloz Rn [facility] 06-24-2022 11:20-0500 Heart rate 73 /min Mloz Rn JULIO REICH [facility] 06-24-2022 11:20-0500 Respiratory rate 16 /min Mloz Rn JULIO DAMIR [facility] 06-24-2022 11:20-0500 SaO2% (BldA) [Mass fraction] 98 % Mloz Rn JULIO [facility] 06-24-2022 11:20-0500 Systolic blood pressure 142 mm[Hg] Mloz Rn JULIO [facility] 05-18-2022 08:46-0500 Body height 165.1 cm Acosta Schafer MD Work Phone: [facility] Work Phone: 05-18-2022 08:46-0500 Body mass index (BMI) [Ratio] 45.93 kg/m2 Acosta Schafer MD Work Phone: [facility] Work Phone: 05-18-2022 08:46-0500 Body surface area Derived from formula 2.27 m2 Acosta Schafer MD Work Phone: [facility] Work Phone: 05-18-2022 08:46-0500 Body weight 125.19 kg Acosta Schafer MD Work Phone: [facility] Work Phone: Encounters Encounter Date Encounter Type Care Provider Facility Start: 09-30-2023 End: 09-30-2023 ambulatory PHYSICIAN NO [facility] Work Phone: Start: 09-30-2023 End: 09-30-2023 Patient encounter procedure PHYSICIAN NO [facility] Ambulatory Work Phone: Start: 09-30-2023 Registered Recurring PHYSICIAN AKASH [facility] [place] [facility] Work Phone: Start: 09-30-2023 ambulatory Lorrie Baig Facility: [facility] Start: 09-07-2023 End: 09-07-2023 Patient encounter procedure PHYSICIAN AKASH CH [facility]Ul[facility] [place] Work Phone: Start: 09-07-2023 End: 09-07-2023 ambulatory Elizabeth Alvarado Facility:[facility] Start: 08-24-2023 End: 08-24-2023 Patient encounter procedure FEED MILLER Elizabeth Alvarado Work Phone: [facility] Start: 08-24-2023 End: 08-24-2023 ambulatory Elizabeth Alvarado [facility] Work Phone: Start: 08-24-2023 End: 08-24-2023 Departed Referred FEED MILLER Elizabeth Alvarado Work Phone: [facility] Start: 05-10-2023 End: 05-10-2023 Patient encounter procedure FEED MILLER Elizabeth Alvarado Work Phone: [facility] Work Phone: Start: 05-10-2023 End: 05-10-2023 ambulatory FEED MILLER Elizabeth Alvarado Work Phone: [facility] Work Phone: Start: 03-02-2023 End: 03-02-2023 ambulatory Tyler Jean Other [employer] Other Start: 03-02-2023 Office outpatient vi sit 25 minutes Tyler Jean [facility] Start: 02-14-2023 End: 02-14-2023 ambulatory FEED MILLER Elizabeth Alvarado Work Phone: [facility] Work Phone: Start: 02-14-2023 End: 02-14-2023 Patient encounter procedure RHEA Alvarado Work Phone: [facility] [place] Work Phone: Start: 01-26-2023 [facility] visit new patient Sindy rubio [facility] Start: 01-26-2023 End: 01-26-2023 ambulatory RHEA Alvarado Work Phone: [employer] Other Start: 01-26-2023 End: 01-26-2023 Patient encounter procedure RHEA Alvarado Work Phone: [facility] [place] Work Phone: Start: 12-29-2022 Patient encounter procedure Acosta Schafer MD Work Phone: [facility] Work Phone: Start: 12-29-2022 ambulatory Provider Pending Facili ty:[id number] Start: 11-25-2022 End: 11-25-2022 Patient encounter procedure RHEA Alvarado Work Phone: [facility]Respiratory Therapy Work Phone: Start: 09-22-2022 Patient encounter procedure Acosta Schafer MD Work Phone: [facility] Work Phone: Start: 09-22-2022 ambulatory Provider Pending Facili ty:[id number] Start: 09-21-2022 End: 09-21-2022 ambulatory RHEA Alvarado Work Phone: [facility] Work Phone: Start: 09-21-2022 End: 09-21-2022 Registered Recurring RHEA Alvarado Work Phone: [facility] Work Phone: Start: 08-11-[address] Acosta Schafer Facility:[id number] Start: 08-04-2022 End: 08-04-2022 Discharged Recurring RHEA Fraserjackie Alvarado Work Phone: [facility]-Physical Therapy [address] Start: 07-23-2022 End: 07-23-2022 ambulatory RHEA Hurley Christiano Work Phone: [facility] Work Phone: Start: 07-23-2022 End: 07-23-2022 Patient encounter procedure RHEA Johnson Christiano Work Phone: [facility] [place] Work Phone: Start: 07-16-2022 Telephone encounter Acosta Crews MD Work Phone: [facility] Work Phone: Start: 07-14-2022 Patient encounter procedure Acosta Schafer MD Work Phone: [facility] Work Phone: Start: 07-14-[address] Acosta [place] yaneli Shipman Facility:[id number] Start: 07-07-2022 AUDIT Acosta sow MD Work Phone: [facility] Work Phone: Start: 07-01-2022 ambulatory Provider Pending Facili ty:[id number] Start: 07-01-2022 End: 07-03-2022 Evaluation and management of inpatient ACOSTA SCHAFER [facility] Start: 07-01-2022 SURGNONUH, Provider: Acosta Schafer, Status: Pen, Time: 7:00 AM Natali Tyson PT, DPT Work Phone: [facility] Work Phone: Start: 07-01-2022 End: 07-03-2022 Evaluation and management of inpatient Acosta Schafer MD Work Phone: [facility] Ortho Tele Comment on above: 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 Merrill Rawls as [facility] Facility:[id number] Start: 06-25-2022 Encounter for other preprocedural examination Mr. Merrill Hernandez [place] [facility] Start: 06-24-2022 End: 06-29-2022 ambulatory ACOSTA SCHAFER [place] Start: 06-24-2022 End: 06-28-2022 Subsequent hospital visit by physician Juan Mott 2 Rn [facility] Pre-Admission Testing Start: 05-18-2022 Patient encounter procedure Acosta Schafer MD Work Phone: [facility] Work Phone: Start: 05-18-[address] Acosta Subram[place]field Facility:[id number] Start: 05-07-2022 End: 05-07-2022 Patient encounter procedure RHEA Alvarado Work Phone: [facility]Electro[facility] Work Phone: Start: 04-13-2022 End: 04-13-2022 ambulatory RHEA Alvarado Work Phone: [facility] Work Phone: Start: 04-13-2022 End: 04-13-2022 Patient encounter procedure RHEA Alvarado Work Phone: [facility] [place] Start: 12-17-2021 End: 12-17-2021 Patient encounter procedure RHEA Alvarado Work Phone: [facility]Nuc Med [facility] [place] Start: 12-07-2021 End: 12-07-2021 Patient encounter procedure RHEA Alvarado Work Phone: [facility] [place] Start: 12-03-2021 End: 12-03-2021 Departed Referred RHEA Alvarado Work Phone: [facility] Procedures Date [...] TO MG FOR LOW K Arya Coronado [employer] M[employer]ER - [facility] Work Phone: Start: 07-03-2022 Blood count complete automated Arya Coronado [employer] - [facility] Work Phone: Start: 07-02-2022 Dup-scan xtr veins unilateral/limited study Carlos A Hou DO Work Phone: Start: 07-02-2022 BASIC METABOLIC PANE L W/ REFLEX TO MG FOR LOW K Arya Coronado [employer] - [facility] Work Phone: Start: 07-02-2022 Blood count complete automated Arya Coronado [employer] - [facility] Work Phone: Start: 07-01-2022 Radiologic examinati on knee 1/2 views Adjyoan Coronado [employer]ER - [facility] Work Phone: Start: 07-01-2022 End: 07-01-2022 [...] Start: 12-17-2021 Radionuclide three-p hase bone study FEED MILLERNohelia Alvarado Work Phone: Start: 12-07-2021 US scan of thyroid RHEA Alvarado Work Phone: Start: 02-01-2019 Anesthesia consultation Start: 01-24-2019 Anesthesia consultation Plan of Treatment Date Care Activity Detail Author Start: 06-29-2023 FUV, Provider: Acosta Schafer, Status: Pen, Time: 2:15 PM FUV, Provider: Acosta Schafer, Status: Pen, Time: 2:15 PM [facility] [facility] Work Phone: Start: 02-17-2023 Screening for malign ant neoplasm of colon [facility] Start: 12-29-2022 FUV, Provider: Acosta Schafer, Status: Pen, Time: 1:45 PM FUV, Provider: Acosta Schafer, Status: Pen, Time: 1:45 PM [facility] [facility] [place] Work Phone: Start: 08-11-2022 FUV, Provider: Acosta Schafer, Status: Pen, Time: 9:45 AM FUV, Provider: Acosta Schafer, Status: Pen, Time: 9:45 AM [facility] [place] Work Phone: Start: 07-23-2022 [facility] Start: 07-14-2022 POV, Provider: Acosta Schafer, Status: Pen, Time: 9:00 AM POV, Provider: Acosta Schafer, Status: Pen, Time: 9:00 AM [facility] Work Phone: Start: 07-01-2022 End: 07-01-2022 Admission to same day surgery center 07/01/2022 Surgery IP Unit Acosta Schafer MD [address] [place] [address] RIGHT KNEE RIGHT TOTAL KNEE REVISION INSTRUMENTATION ANTONELLA FEMORAL & SCIATIC BLOCK [facility] Comment on above: RIGHT KNEE RIGHT TOT AL KNEE REVISION INSTRUMENTATION ANTONELLA FEMORAL & SCIATIC BLOCK Start: 07-01-2022 End: 07-01-2022 Revj total knee arthrp w/wo algrft 1 component KNEE TOTAL ARTHROPLASTY REVISION Loosening of unicondylar knee replacement (HCC) 07/01/2022 10:50 AM [facility] Start: 07-01-2022 Subsequent hospital visit by physician 07/01/2022 Hospital Encounter IP Unit Acosta Schafer MD [address] [place] [address] [facility] [place] Start: 07-01-2022 [facility]: Acosta Schafer, Status: Pen, Time: 7:00 AM [facility] Provider: Acosta Schafer, Status: Pen, Time: 7:00 AM [facility] [place] Work Phone: Start: 06-25-2022 PREADMIT, Provider: Merrill Alejandro, Status: Pen, Time: 1:45 PM PREADMIT, Provider: Merrill Alejandro, Status: Pen, Time: 1:45 PM [facility] [place] Work Phone: Start: 06-25-2022 [id number], Provider : Natali Tyson, Status: Pen, Time: 1:00 PM [id number], Provider: Natali Tyson, Status: Pen, Time: 1:00 PM [facility] [place] Work Phone: Start: 06-24-2022 Annual Wellness Visi t (AWV) Annual Wellness Visit (AWV) [facility] Start: 12-17-2021 Radionuclide three-p hase bone study NM bone 3 phase [facility] Start: 12-17-2021 End: 12-17-2021 Patient encounter procedure Departed [facility] [place] Start: 12-07-2021 US scan of thyroid US thyroid [facility] Start: 12-07-2021 End: 12-07-2021 Patient encounter procedure Departed [facility] [place] Start: 11-23-2021 Influenza vaccination Flu vaccine (# 1) [facility] Start: 05-18-2021 COVID-19 Vaccine (4 - Booster for Moderna series) COVID-19 Vaccine (4 - Booster for Moderna series) [facility] Start: 02-23-2018 Screening for malign ant neoplasm of breast Breast cancer screen [facility] Start: 02-23-2018 Shingles vaccine (1 of 2) Shingles v accine (1 of 2) [facility] Start: 02-23-2013 Screening for malign ant neoplasm of colon [facility] Start: 2008 Lipid panel Lipids [facility] [employer] Start: 02-23-2003 Diabetes screen Diabetes screen [facility] Start: 02-23-1998 Screening for malign ant neoplasm of cervix [facility] Start: 02-23-1989 Screening for malign ant neoplasm of cervix Pap smear [facility] Start: 02-23-1987 DTaP/Tdap/Td vaccine (1 - Tdap) DTaP/Tdap/Td vaccine ( - Tdap) [facility] Start: 02-23-1986 Hepatitis C screening Hepatitis C sc reen [facility] Start: 02-23-1983 HIV screening HIV screen [facility] Start: 1980 Depression Screen Depression Screen [facility] [employer] Start: 1968 COVID-19 Vaccine (#1) COVID-19 Vacci ne (#1) [facility] [employer] End: 07-04-2022 Basic Metabolic Panel w/ Reflex to MG Basic Metabolic Panel w/ Reflex to MG Lab Routine Daily for 3 Days starting 07/02/2022 until 07/04/2022, 2 completed [facility] [employer] Phone: Comment on above: Daily for 3 Days sta rting 07/02/2022 until 07/04/2022, 2 completed End: 07-04-2022 CBC panel - Blood by Automated count CBC Lab Routine Daily for 3 Days starting 07/02/2022 until 07/04/2022, 2 completed [employer] [facility] [employer] Phone: Comment on above: Daily for 3 Days sta rting 07/02/2022 until 07/04/2022, 2 completed Comprehensive metabo lic 2000 panel - Serum or Plasma [facility] Comprehensive metabo lic 2000 panel - Serum or Plasma [facility] IgA [Mass/volume] in Serum or Plasma [facility] IgG [Mass/volume] in Serum or Plasma [facility] IgM [Mass/volume] in Serum or Plasma [facility] Oxygen therapy [[facility] Data Set] Initiate Oxygen Therapy Protocol Respiratory Care Routine Daily until discontinued starting 07/01/2022 [facility] [employer] Phone: Comment on above: Daily until disconti nued starting 07/01/2022 Spirometry panel Incentive tonja metry Respiratory Care Routine Every 2hr while awake until discontinued starting 07/01/2022 [facility] [employer] Phone: Comment on above: Every 2hr while awak e until discontinued starting 07/01/2022 [facility] Immunizations Immunization Date Immunization Notes Care Provider Maria T otoole 03-16-2016 influenza virus vaccine, unspecified formulation RHEA Alvarado Work Phone: [facility] 03-16-2016 influenza, injectabl e, quadrivalent, preservative free Sindy Davila Other [facility] [employer] Other Payers Date Payer Category Payer Private Health Insurance [id number] 2022 Medicaid [id number] 2022 Medicare [id number] 2022 Private Health Insurance [id number] 2022 Self-pay [id number] 2014 Private Health Insurance [id number] 1970 Unknown [id number] [id number]. 182 1968 Unknown [id number] 2.16.840.1.198788.3.579.2. 182 1968 Unknown [id number] 2.16.840.1.580293.3.579.2. 356 1968 Unknown [id number] 2.16.840.1.044863.3.579.2. 8 1968 Unknown [id number] 2.16.840.1.247700.3.579.2. 1067 1968 Unknown [id number] 2.16.840.1.841209.3.579.2. 1068 1968 Unknown [id number] 2.16.840.1.555347.3.579.2. 1067 1968 Unknown [id number] 2.16.840.1.800389.3.579.2. 1068 1968 Unknown [id number] 2.16.840.1.348101.3.579.2. 1068 1968 Unknown [id number] 2..840.1.316968.3.579.2. 1068 Medicare [id number] Medicare [place] [employer] Dual Adv JRG [id number] Unknown [facility] DUAL COMPLETE Unknown [id number] 2.16.840.1.565538.3.579.2. 531 Unknown [id number] 2.16.840.1.528591.3.579.2. 531 Unknown [id number] 2.16.840.1.692592.3.579.2. 531 Unknown [id number] 2.16.840.1.783261.3.579.2. 531 Unknown [id number] 2.16.840.1.012768.3.579.2. 531 Social History Date Type Detail Facility Start: 06-03-2017 End: 09-21-2022 Tobacco smoking status NHIS Never smoked tobacco (finding) [facility] Start: 1970 Sex Assigned At Female F [facility] Start: 06-24-2022 Tobacco use and exposure Smokeless tobacco non-user [employer] Phone: Start: 06-24-2022 End: 07-02-2022 Alcohol intake Current drinker of alcohol (finding) [employer] Phone: Start: 06-24-2022 Alcohol Comment occasional [employer] Phone: Start: 1970 Sex Assigned At Not on file B ON [employer] Phone: Start: 06-14-2022 End: 06-24-2022 Exposure to SARS-CoV-2 (event) Not sure [employer] Phone: Sex Assigned At Sex Assigned At [facility] [employer] Other Medical Equipment Procedure Code Equipment Code Equipment Origin al Text Equipment Identifier Dates Cement Bioprep S t - [id number] Start: 07-01-2022 Stem Tib [id number] [id number] Knee Tot Stbl Joey Roberta [employer] - [id number] , [id number] FDA Start: 07-01-2022 Clinical Notes [...] of both lower extremities (ICD-10 - I87.303) [employer] Other 10-04-2023 Evaluation note* Encounter Date Diagnosis [...] Bilateral lower extremity edema (ICD-10 - R60.0) [employer] Other 04-24-2023 Consult note Author [facility]ey [facility] August 16, 2022 3:19pm Note Date/Time August 16, 2022 2:2 0pm [facility] at [address] [address] Hem/Onc Consult Note - OP Signed Patient: Geeta Shelton MR#: [id number] : 1970 Acct:[id number] Age/Sex: 52 / F Type: REG RCR Copies to: Elizabeth Alvarado APRN,SUPERVISOR HAND SILVERING Lorrie Baig DO~ HPI Date/Time of Service: Date of Service: 08/16/2022 Time of Service: 14:19 Referring Provider/PCP: Referring Provider: Lorrie Baig DO PCP: Elizabeth Alvarado APRN, TITLE I MATH TUTOR-C - History of Present Illness Reason for [...] and/or blood disorder. No history of thrombosis. [facility] - Medical History Medical History: Medical History [...] Additional comments: Patient: Geeta Shelton MR#: [id number] : 1970 Acct:[id number] Age/Sex: 51 / F ADM Date: 2 Loc: [place] Room: Type: [facility] Attending Dr: Tyler Villeda PA-C Copies to: CARLI Noyola Jeffrey S DO~ Ordering Provider: Tyler Villeda PA-C Date of Service: 12/17/21 BANNER bone 3 phase: M25.562, M25.561 Nuclear medicine [...] the knee hardware bilaterally. This may bepostsurgical. AR/AR bone 3 phase IMPRESSION: Intense uptake of [...] for coordination of care (as documented) and [id number] counseling of patient and/or family. Dictated By: Zoey Ramirez APRN DD/ 1419 Signed By: <Electronically signed by RHEA Ramirez> 08/16/22 1519 [facility] Work Phone: 1(120) 468-947603-11-2023 History of Present illness Narrative* Sosa Poon [...] tape after removal as ordered. Patient has [facility] set up. Knee immobilizer sent with [...] Note Facility/Department: [facility]THO [facility]: Geeta Shelton : 1970 [...] BLOCK-DEMETRIA performed by Acosta Schafer MD at [facility] Chart Reviewed: Yes Restrictions: Restrictions/Precautions: Fall [...] Recommendations: Continue to assess pending progress Goals Lathmaker Goals Lathmaker Goal 1: Bed mobility with indep Lathmaker Goal 2: Functional transfes with indep Lathmaker Goal 3: Amb 50ft with 2ww and indep Lathmaker Goal 4: 4 steps with handrail and SBA Lathmaker Goal 5: indep with HEP to improve [...] Therapy Med Surg Daily Treatment Note Facility/Department: [address] ORTHO TELE Room: [place] [address] NAME: Geeta Shelton : 1970 (52 y.o.) [...] Recommendations: Continue to assess pending progress Goals Lathmaker Goals Long-Term Goal 1: Bed mobility with indep Lathmaker Goal 2: Functional transfes with indep Long-Term Goal 3: Amb 50ft with 2ww and indep Long-Term Goal 4: 4 steps with handrail and SBA Lathmaker Goal 5: indep with HEP to improve LE strength and ROM Patient Goals Patient Goals : to go home PLAN General Plan: 2 times a day 7 days a week Safety Devices Type of Devices: All fall risk precautions in place, Call light within reach, Left in bed, Bed alarm in place, Nurse notified [facility] (6 CLICK) BASIC MOBILITY AM-PAC Inpatient [...] to accomplish the task * Arya Coronado, FEED MILLER - SUPERVISOR HAND SILVERING - 07/02/2022 9:49 AM EST Progress Note [...] puffs by inhalation with spacer [] Ipratropium [place] 0.02% unit dose by aerosol Ipratropium [place] MDI 2 puffs by inhalation with spacer [] Duoneb (Ipratropium + Albuterol) unit dose by aerosol Ipratropium MDI + Albuterol MDI 2 puffs byinhalation w/spacer MDI to Aerosol [] Albuterol Sulfate MDI Albuterol Sulfate 0.083% unit dose by aerosol [] Levalbuterol MDI 2 puffs by inhalation Levalbuterol 1.25 mg unit dose by aerosol [] Ipratropium [place] MDI by inhalation Ipratropium [place] 0.02% unit dose by aerosol [] Combivent (Ipratropium + Albuterol) MDI by inhalation Duoneb (Ipratropium + Albuterol) unit doseby aerosol Treatment Assessment [Frequency/Schedule]: Change frequency to: NO CHANGE per Protocol, P&T, [facility] Points 0 1 2 3 4 [...] (52 y.o.) CODE STATUS: Full Code Room: [place] [address] Date of Service: 07/01/2022 Patient Diagnosis(es): Loosening [...] Ambulation Assistance: Independent Transfer Assistance: Independent Active [employer] Broker: Yes Mode of Transportation: Car OBJECTIVE: Orientation Status: Orientation Overall Orientation Status: Within Functional Limits Orientation Level: Oriented X4;Oriented to place;Oriented to time;Oriented to situation;Oriented toperson Observation: Observation/Palpation Posture: Good Observation: right knee incision with bandage and knee immobilizer in place Cognition Status: Cognition Overall Cognitive Status: [facility] Cognition Comment: Follows commands consistently Perception Status: Perception Overall Perceptual Status: [facility] Vision and Hearing Status: Vision [...] 6 complexities Assistance / Modification: Mod A [facility] (Six Click) Self care Score How [...] How much help for eating meals?: None [facility] Inpatient Daily Activity Raw Score: 19 AM-[facility] Inpatient ADL T-Scale Score : 40.22 ADL [...] Physical Therapy Med Surg Initial Assessment Facility/Department: [address] TELE Room: [place] [address] NAME: Geeta Shelton : 1970 (52 y.o.) [...] Ambulation Assistance: Independent Transfer Assistance: Independent Active [employer] Broker: Yes Mode of Transportation: Car OBJECTIVE: Vision [...] Goals: Patient Goals : to go home Lathmaker Goals Lathmaker Goal 1: Bed mobility with indep Long-Term Goal 2: Functional transfes with indep Lathmaker Goal 3: Amb 50ft with 2ww and indep Lathmaker Goal 4: 4 steps with handrail and [...] accomplish the task documented in this encounterBON [facility] Work Phone: 1(513) 982-877303-09-2023 History of Present illness Narrative* History of [...] she will most likely do this at [facility] in [place]. * Physical exam * General: No acute [...] see dictated x-ray report * Procedure * Gipsy removed Steri-Strips placed without complication * Assessment [...] grammatical areas may persist related to the [employer] software * Merrill Alejandro PA-C * . -[place] [facility] Phone: 1(267) 197-889303-07-2023 Hospital Discharge instructions* Discharge Instructions* Arya Coronado APRN - SUPERVISOR HAND SILVERING - 06/29/2022 11:33 AM EST Total Knee [...] remove dressing and start using instructions above Gipsy will be removed on post-operative day 14 [...] Hospital Unit/Room#: W268/W268-01 Discharging Unit Phone Number: [phone] Emergency Contact: Extended Emergency Contact Information Primary Emergency Contact: kena travis Ashby Relation: Other Past Surgical History: Past Surgical History: Procedure Laterality Date JOINT REPLACEMENT Left knee PARTIAL KNEE ARTHROPLASTY Right REVISION TOTAL KNEE ARTHROPLASTY Right 07/01/2022 RIGHT KNEE RIGHT TOTAL KNEE REVISION INSTRUMENTATION ANTONELLA FEMORAL & SCIATIC BLOCK-DEMETRIA performed by Acosta Schafer MD at [facility] [place] Immunization History: There is no immunization [...] Assisted Dressing Assisted Toileting Independent Feeding Independent Production Zone Leader Independent Med Delivery whole Wound Care Documentation [...] applicable) Name: Address: Dialysis Schedule: Phone: Fax: Air Saw Operator/Product Builder signature: {Esignature:[id number]} PHYSICIAN SECTION Prognosis: {Prognosis:2670839121} Condition at Discharge: { Patient Condition:488164356} Rehab Potential (if transferring to Rehab): {Prognosis:8561005790} Recommended Labs or Other Treatments After Discharge: Physician Certification: I certify the above information and transfer of Geeta Shelton is necessary for the continuing treatment of the diagnosis listed and that she requires [facility]} for {GREATER/LESS:333933634} 30 days. Update Admission H&P: {CHP DME Changes in HandP:658513217} PHYSICIAN SIGNATURE: {Esignature:272538098} * Attachments The following attachments cannot be sent through Care Everywhere. * Total Knee Replacement Surgery: General Info (Kiswahili) * Wound: VAC (Vacuum-Assisted Closure) (Kiswahili) [facility] Phone: [phone]) 888-378403-02-2023 History of Present illness Narrative* Sindy Pelaez RN - 06/24/2022 11:10 AM EST Yellow PAT and Dynahex instruction sheet reviewed with patient, who verbalized understanding. documented in this encounterBON [employer] Phone: evaluation noteNo assessment information available [facility] Work Phone: Evaluation note* Diagnosis Status post revision of total knee replacement, right- Primary Status post revision of total replacement of right knee Acute postoperative pain Other acute postoperative pain documented in this encounter [facility] [employer] Phone: evalqskcts note* Diagnosis Onset Date Resolution Status MGUS (monoclonal gammopathy of unknown significance) acute Microcytosis acute Peripheral neuropathy acute [facility] Work Phone: Evaluation note* Diagnosis Onset Date Resolution Status MGUS (monoclonal gammopathy of unknown significance) acute Microcytosis acute Peripheral neuropathy acute MGUS (monoclonal gammopathy of unknown significance) [facility] Work Phone: History general Narrative - Reported* Type Description Date Medical History asthma Medical History snoring Medical History Allergic Rhinitis Medical History Essential Hypertension Surgical History Revise/Replace left knee joint Surgical History Varicose Veins 2010 Surgical History Right ankle surgery Hospitalization History See above [employer] Other History of Present illness Narrative* New [...] grammatical areas may persist related to the [employer] software * Acosta Schafer MD * Senior Attending Physician * [facility] * [facility] * . -[place] [facility] Work Phone: History of Present illness [...] grammatical areas may persist related to the [employer] software * Acosta Schafer MD * Senior Attending Physician * [facility] * [facility] * . -[place] [facility] Work Phone: History of Present illness Narrative* [...] will be re-assessed and goals updated. [facility] Work Phone: History of Present illness Narrative* [...] will be re-assessed and goals updated. [facility] Work Phone: History of Present illness Narrative* [...] grammatical areas may persist related to the [employer] software * Acosta Schafer MD * Senior Attending Physician * [facility] * . -[place] [facility] Work Phone: History of Present illness [...] grammatical areas may persist related to the [employer] software * Merrill Alejandro PA-C * . [facility] Work Phone: Progress note Author Krzysztof Salazar [facility] September 21, 2022 9:52am Note Date/Time September 21, 2022 9:49a m [facility] at [address] [address] Hem/Onc Follow Up Note - OP Signed Patient: Geeta Shelton MR#: [id number] : 1970 Acct:[id number] Age/Sex: 52 / F Type: REG RCR Copies to: Elizabeth Alvarado APRN,SUPERVISOR HAND SILVERING Lorrie Baig,DO~ Date of Service: 09/21/2022 Time [...] for coordination of care (as documented) and fxal-nc-qect counseling of patient and/or family. [facility]MERLY [facility], [facility] - Medical History Medical History: Medical History [...] by Krzysztof Salazar II, DO> 09/21/22 0952 [facility] Work Phone: Reason for visit Narrative* Initial Evaluation, Pre-Op . * Referred by: Dr. Acosta Schafer [facility] Work Phone: Reason for visit Narrative* Initial Evaluation, Pre-Op . * Referred by: Dr. Acosta Schafer [facility] Work Phone: Summary Purpose Family History [...] replacement of right knee Born, Arya Harry, FEED MILLER - SUPERVISOR HAND SILVERING [address] [place] [address] Referral ID Status Reason Start Date Expiration Date V isits Requested Visits Authorized [id number] Open Specialty Services Required 07/01/2022 07/01/2023 1 1 Question Answer I certify that I, or a nurse practitioner or physician casting assistant working with me, had an in-person encounter with the patient and the reason for the home care services is documented in the clinical note on: 07/01/2022 Will the referring provider be the attending provider for home health? [place] of attending provider for home health Dr. [...] section and content) DATE CREATED AUTHOR 02/01/2019 [place] [facility] DATE CREATED AUTHOR AUTHOR'S ORGANIZ ATION 07/04/2022 [facility] [place] DATE CREATED AUTHOR AUTHOR'S ORGANIZ ATION 07/08/2022 [facility] DATE CREATED AUTHOR AUTHOR'S ORGANIZ ATION 12/30/2022 [facility] DATE CREATED AUTHOR AUTHOR'S ORGANIZ ATION 01/09/2023 [facility] DATE CREATED AUTHOR AUTHOR'S ORGANIZ ATION 02/19/2024 [facility] Care Teams (unrecognized sec tion and content) Team Status: Active Member Role Status Dates Elizabeth Alvarado APRN TITLE I MATH TUTOR-C Primary Care Provide r Active Team Status: Inactive Member Role Status Dates Elizabeth Alvarado APRN TITLE I MATH TUTORInés Primar y Care Provider, Attending Provider Active Team Status: Inactive Member Role Status Dates Elizabeth Alvarado APRN TITLE I MATH TUTOR-C Primary Care Provide r Active Lorrie Baig DO Attending Provider Active Team Status: Inactive Member Role Status Dates Elizabeth Alvarado APRN TITLE I MATH TUTOR-C Primary Care Provide r Active KEN CavazosC Attending Provider Active Team Status: Inactive Member Role Status Dates Elizabeth Alvarado APRN TITLE I MATH TUTOR-C Attending Provider A ctive Services [facility] Primary Care Provider Active Photography Spotter Relationship Specialty Start Date End Date Elizabeth Alvarado PCP - General 07/01/22 Team Status: Active Member Role Status Dates Elizabeth Alvarado APRN TITLE I MATH TUTOR-C Primary Care Provide r Active Zoey Ramirez APRN Attending Provider Active Lorrie Baig DO Referring Provider Active Team Status: Inactive Member Role Status Dates Elizabeth Alvarado APRN TITLE I MATH TUTOR-C Primary Care Provide r Active Acosta Schafer Attending Provider Active Team Status: Inactive Member Role Status Dates Elizabeth Alvarado APRN TITLE I MATH TUTOR-C Primary Care Provide r Active Sindy Davila TITLE I MATH TUTOR-C Attending Provider Active Team Status: Inactive Member Role Status Dates Elizabeth Alvarado APRN TITLE I MATH TUTOR-C Attending Provider A ctive Start: August 24, 2023 End: August 24, 2023 Team Status: Active Member Role Status Dates PHYSICIAN NO FAMILY Primary Care Provider Active Team Status: Inactive Member Role Status Dates Elizabeth Alvarado APRN TITLE I MATH TUTOR-C Attending Provider A ctive Start: September 07, 2023 End: September 07, 2023 PHYSICIAN NO FAMILY Primary Care Provider Active Start: September 07, 2023 End: September 07, 2023 Team Status: Active Member Role Status Dates Elizabeth Alvarado APRN TITLE I MATH TUTOR-C Primary Care Provide r Active Start: September 30, 2023 Zoey Ramirez APRN Active Start: September 30, 2023 Lorrie Baig DO Referring Provider Active Sta rt: September 30, 2023 Krzysztof Salazar II, DO Attending Provider Active Start: September 30, 2023 Team Status: Inactive Member Role Status Dates Elizabeth Alvarado APRN TITLE I MATH TUTOR-C Primary Care Provide r Active Start: September [...] FEMORAL & SCIATIC BLOCK Acosta Schafer MD [address] [place] [address] [facility] [address] [place] [address] Referral ID Status Reason Start Date Expiration Date Visits Re quested Visits Authorized [id number] 1 1 Ordered Prescriptions (unrec ognized section [...] 1545, Until Discontinued 1638 (Given - Provider: zOzie Carpenter RN) 09 (Given - Provider: Sosa [...] at 250 mL/hr, Administer over 60 Minutes, CST TO O.R., On Renee 07/01/22 at 0845, [...] (NoRateChange - Provider: Yang Mccollum APRN - MANAGER APPOINTMENT)1311 (Anesthesia Volume Adjustment - Provider: Yang Mccollum [...] BE BASED ON THE PRIMARY CLINICAL RECORDS. [employer] provides no warranty or guarantee of the accuracy or completeness of information in this document.
--- NOTE | 2024-06-02 15:46 | P.CN_ITS ---
Consult Note: [facility] Data of Consult Consult date: 06/02/24 Requesting Physician: David Quinn MD Primary Care Provider: [facility] Consult Narrative Reason for consult: Right diabetic foot infection Narrative: Patient is a 54-year-old female who is known to my practice and been treated for fissures of her bilateral heels in the past. She presented to the emergency department today relating to pain that started about 3 days ago at which time she noted a blister forming. She relates that pain has substantially increased over the last 24 hours. She states that redness on her plantar foot began about 2 days ago. She denies any injury or stepping on anything. She relates to periodic chills but denies fever, night sweats, nausea, vomiting, fatigue, calf pain, chest pain, and shortness of breath. In the emergency department x-rays were negative for acute osseous pathology. Significant elevation in inflammatory markers and leukocytosis of 17,000. Lactate within normal limits and vital signs have been stable. cc:: CC: David Quinn MD [facility] Medical History (Updated 06/02/24 @ 15:55 by Jun Gentile DPM) Neuropathy ?G62.9 - Polyneuropathy, unspecified (ICD-10) Superficial thrombophlebitis of left leg ?I80.02 - Phlebitis and thrombophlebitis of superficial vessels of left lower extremity (ICD-10) Phlebitis of superficial vein of right lower extremity ?I80.01 - Phlebitis and thrombophlebitis of superficial vessels of right lower extremity (ICD-10) Obesity ?E66.9 - Obesity, unspecified (ICD-10) Asthma ?J45.909 - Unspecified asthma, uncomplicated (ICD-10) Pain due to varicose veins of both lower extremities ?I83.813 - Varicose veins of bilateral lower extremities with pain (ICD-10) Surgical History (Updated 05/23/24 @ 08:38 by Torres Man) Status post laser ablation of incompetent vein ?Z98.890 - Other specified postprocedural states (ICD-10) H/O tubal ligation ?Z98.51 - Tubal ligation status (ICD-10) History of bilateral knee replacement ?Z96.653 - Presence of artificial knee joint, bilateral (ICD-10) Status post laser ablation of incompetent vein ?Z98.890 - Other specified postprocedural states (ICD-10) Social History Little interest or pleasure in doing things: not at all Feeling down, depressed, or hopeless: not at all Meds Home Medications and Allergies Home Medications ?Medication ?Instructions ?Recorded ?Confirmed ?Type ammonium lactate 12 % topical cream 1 applic topical DAILY 03/02/24 06/02/24 History celecoxib 200 mg capsule 200 mg PO DAILY 06/02/24 06/02/24 History cyclobenzaprine 10 mg tablet 10 mg PO BEDTIME 06/02/24 06/02/24 History empagliflozin 25 mg tablet 25 mg PO DAILY 06/02/24 06/02/24 History (Jardiance) gabapentin 300 mg capsule 300 mg PO Q8H 06/02/24 06/02/24 History hydroxyzine HCl 50 mg tablet 50 mg PO DAILY PRN itching 06/02/24 06/02/24 History montelukast 10 mg tablet 10 mg PO BEDTIME 06/02/24 06/02/24 History ropinirole 2 mg tablet 2 mg PO BID 06/02/24 06/02/24 History sertraline 100 mg tablet 100 mg PO Q24H 06/02/24 06/02/24 History solifenacin 10 mg tablet 10 mg PO DAILY 06/02/24 06/02/24 History Allergies Allergy/AdvReac Type Severity Reaction Status Date / Time Penicillins AdvReac Severe Anaphylaxis Verified 12/12/23 17:11 Exam Narrative Exam Narrative: Skin: Blister noted in the plantar medial instep which spans the width of the foot from medial to lateral. There is intense rubor and erythema noted at the medial aspect of the blister which is to the level of the tarsal tunnel as well as at the lateral portion of the blister over the fifth metatarsal base. Vascular: Pedal pulses are palpable. Absent digital hair. Localized right foot swelling Neuro: Vibratory and protective sensation are diminished. Light touch sensation is intact to all nerve distributions to the level of the ankle. Musculoskeletal: There is pain on palpation over the tarsal tunnel and fifth metatarsal base but no fluctuance is observed. There is no pain out of proportion as patient is able to wiggle her toes as well as dorsiflex and plantarflex the ankle without pain Constitutional Vital Signs, click to edit/add: Last Vital Signs Temp 99.0 F 06/02/24 14:55 Pulse 85 06/02/24 14:55 Resp 14 06/02/24 14:55 BP 114/68 06/02/24 14:55 Pulse Ox 96 06/02/24 14:55 O2 Del Method Room Air 06/02/24 14:55 Results Labs Labs: Short CBC 06/02/24 Range/Units 12:21 WBC 17.0 H (4.0-11.0) 10^3/uL Hgb 15.2 (12.0-16.0) g/dL Hct 47.8 (36.0-48.0) % Plt Count 317 (150-450) 10^3/uL BMP 06/02/24 12:21 Sodium 132 L Potassium 4.3 Chloride 95 L Carbon Dioxide 30.2 BUN 11.0 Creatinine 1.04 H Glucose 170 H Calcium 9.4 Liver Function 06/02/24 Range/Units 12:21 Total Bilirubin 0.9 (0.2-1.0) mg/dL AST 27 (15-37) U/L ALT 39 (14-59) U/L Alkaline Phosphatase 113 (46-116) U/L Albumin 3.0 L (3.4-5.0) g/dL Assessment and Plan Assessment and Plan (1) Abscess of tendon sheath, right ankle and foot: Plan Patient was seen and evaluated in patient education provided. Dr. Quinn was notified. Patient provided verbal consent for the blister to be deroofed. I was able to the roof at least half of the blister but given pain some of the superficial blistered skin was left intact. A culture swab was then taken and the resultant wound noted serosanguineous drainage and no purulence was observed. There is concern however for a deep sinus and abscess. However given that she her pain is seemingly equal over the lateral border of the foot as it is in the tarsal tunnel I recommended CT with contrast which Dr. Quinn agreed to order. Purpose of the CT scan is to not only diagnose/confirm abscess but also if present will help with surgical planning/incision placement. Continue broad-spectrum antibiotics per Dr. Quinn which may be adjusted as cultures return Nonweightbearing right foot Apply dry sterile dressing daily with Adaptic, 4 x 4's and Kerlix, ABDs if needed and reinforce as necessary Will follow
--- NOTE | 2024-06-02 15:49 | CT_ITS ---
The [address] [address] Patient Name: GEETA VANCE MRN: [id number] date: 1970 Sex: F Assigned Patient Location: ICU Current Patient Location: ICU Accession/Order Number: [id number] Exam Date: 06/02/2024 16:38 Report Date: 06/02/2024 19:46 At the request of: TASHA FRANCE Procedure: CT foot RT w con EXAM: CT foot RT w con HISTORY: abscess COMPARISON: Right foot x-ray 06/02/2024. TECHNIQUE: Axial scans obtained from distal tibia and fibula and ankle to plantar surface of right foot and ankle. Coronal and sagittal reformatted images obtained. Reviewed in bone and soft tissue windows. No contrast. Dose reduction techniques were achieved by using automated exposure control and/or adjustment of mA and/or kV according to patient size and/or use of iterative reconstruction technique. FINDINGS: There is what appears to be focal superficial ulcer along the plantar surface of the hindfoot and area of abnormality on x-ray with some underlying skin thickening and focal edema and inflammatory changes of the plantar subcutaneous fat in this region. Consistent with cellulitis in the appropriate clinical setting. Area of induration extends approximately 4.5 cm proximal to distal extends plantar and dorsal approximately 2 cm. Correlate with exam. No underlying abscess. There is some mild edema within the medial soft tissues at ankle and circumferentially at the ankle to a lesser degree. No opaque foreign body or gas in the tissues. There is moderate fusiform thickening of the distal Achilles tendon consistent with chronic distal Achilles tendinosis. Associated dorsal calcaneal enthesophyte at distal Achilles insertion. There is moderate plantar calcaneal enthesophyte. There is some mild thickening at origin of medial band of plantar fascia with no significant thickening. Correlate for any signs or symptoms of chronic fasciitis in this region. Remaining tendons at ankle and leg are otherwise normal in size and appearance and position. There is diffuse osseous mineralization. No lytic or blastic or destructive changes or evidence of osteomyelitis. No fractures. There is [id number] degenerative ankle mortise narrowing and osteoarthritis. Subtalar joints and remaining foot and ankle joints are well-maintained. No joint effusions. No subluxation or dislocation. There is a small os trigonum. Osseous mineralization is suspected osteoporosis. CT/CT foot RT w con IMPRESSION: 1. Findings consistent with focal cellulitis involving the plantar subcutaneous fat with small superficial ulcer in region at hindfoot as discussed. This corresponds to plain film abnormality. No underlying opaque foreign body or abscess. 2. No acute bone or joint findings or evidence of osteomyelitis. 3. 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 4. Plantar calcaneal enthesopathy. See comments above. Electronically authenticated by: LESA HERNANDEZ Date: 06/02/2024 19:46
[2024-06-02 17:50] LABS: Glucometer 152 mg/dL (74-106)
[2024-06-02] MEDS: LEVOFLOXACIN IN DEXTROSE 5 % 750 MG/150 ML PREMIX 100 MG IV (17:57)
[2024-06-02] MEDS: JUVEN PACKET 1 PACKET PO (20:19)
[2024-06-02] MEDS: ENSURE HP 237 ML LIQUID PO (20:19)
[2024-06-03] VITALS (10 sets, daily range): BP systolic 128–151; BP diastolic 66–87; PULSE 70–91; TEMP 36.3–37.8; O2SAT 93–98
[2024-06-03] MEDS: ACETAMINOPHEN 500 MG TABLET 1000 MG PO ×3 (00:15→20:15)
[2024-06-03] MEDS: CLINDAMYCIN PHOSPHATE/D5W 600 MG/50 ML PREMIX 100 MG IV ×4 (03:00→20:15)
[2024-06-03 06:27] LABS: Basophils Absolute Auto 0.1 10^3/uL (0.0-0.1); Basophils Percent Auto 0.5 % (0.2-2.0); Eosinophils Absolute Auto 0.5 10^3/uL (0.0-0.7); Eosinophils Percent Auto 3.9 % (0.9-7.0); Hematocrit 45.3 % (36.0-48.0); Hemoglobin 14.3 g/dL (12.0-16.0); Immature Granulocytes Abs Auto 0.25 10^3/uL (0.00-0.03); Immature Granulocytes Pct Auto 1.9 % (0.0-0.5); Lymphocytes Absolute Auto 1.4 10^3/uL (1.2-3.8); Lymphocytes Percent Auto 10.6 % (20.5-60.0); Mean Corpuscular HGB Conc 31.6 g/dL (29.9-35.2); Mean Corpuscular Hemoglobin 25.1 pg (26.7-34.0); Mean Corpuscular Volume 79.6 fL (81.0-99.0); Mean Platelet Volume 10.2 fL (9.5-13.5); Monocytes Absolute Auto 1.1 10^3/uL (0.3-0.8); Monocytes Percent Auto 8.7 % (1.7-12.0); Neutrophils Absolute Auto 9.7 10^3/uL (1.4-6.5); Neutrophils Percent Auto 74.4 % (43.0-75.0); Platelet Count 291 10^3/uL (150-450); Red Blood Count 5.69 10^6/uL (4.20-5.40); Red Cell Distribution Width 15.7 % (11.0-15.0); White Blood Count 13.1 10^3/uL (4.0-11.0)
[2024-06-03 06:40] LABS: Anion Gap 13.4; Calcium 9.4 mg/dL (8.5-10.1); Carbon Dioxide 28.7 mmol/L (21.0-32.0); Chloride 97 mmol/L (98-107); Estimated GFR (African America >60 (>=60 mL/min/1.73m^2); Estimated GFR (Non-African Ame >60 (>=60 mL/min/1.73m^2); Glucose 114 mg/dL (74-106); Potassium 4.1 mmol/L (3.5-5.1); Sodium 135 mmol/L (136-145)
[2024-06-03 07:58] LABS: C Reactive Protein 28.73 mg/dL (<=0.50)
[2024-06-03 09:01] LABS: A. calcoaceticus-baumannii Cpx NOT DETECTED (NOT DETECTE); Bacteroides fragilis NOT DETECTED (NOT DETECTE); Candida albicans NOT DETECTED (NOT DETECTE); Candida auris NOT DETECTED (NOT DETECTE); Candida glabrata NOT DETECTED (NOT DETECTE); Candida krusei NOT DETECTED (NOT DETECTE); Candida parapsilosis NOT DETECTED (NOT DETECTE); Candida tropicalis NOT DETECTED (NOT DETECTE); Cryptococcus neoformans/gattii NOT DETECTED (NOT DETECTE); Enterobacter cloacae complex NOT DETECTED (NOT DETECTE); Enterobacterales NOT DETECTED (NOT DETECTE); Enterococcus faecalis NOT DETECTED (NOT DETECTE); Enterococcus faecium NOT DETECTED (NOT DETECTE); Haemophilus influenzae NOT DETECTED (NOT DETECTE); Klebsiella aerogenes NOT DETECTED (NOT DETECTE); Klebsiella pneumoniae group NOT DETECTED (NOT DETECTE); Listeria monocytogenes NOT DETECTED (NOT DETECTE); Neisseria meningitidis NOT DETECTED (NOT DETECTE); Proteus spp. NOT DETECTED (NOT DETECTE); Pseudomonas aeruginosa NOT DETECTED (NOT DETECTE); Salmonella spp. NOT DETECTED (NOT DETECTE); Serratia marcescens NOT DETECTED (NOT DETECTE); Staphylococcus epidermidis NOT DETECTED (NOT DETECTE); Staphylococcus lugdunensis NOT DETECTED (NOT DETECTE); Stenotrophomonas maltophilia NOT DETECTED (NOT DETECTE); Streptococcus agalactiae NOT DETECTED (NOT DETECTE); Streptococcus pneumoniae NOT DETECTED (NOT DETECTE); Streptococcus pyogenes NOT DETECTED (NOT DETECTE); Streptococcus spp. NOT DETECTED (NOT DETECTE)
--- NOTE | 2024-06-03 09:32 | P.PN_ITS ---
Progress Note: Subjective Subjective Interval history: No new complaints, still has some pain in her foot, we will be restarting her home medications today. Denies any other complaint of fever, chills, cough, chest pain, abdominal pain Exam Constitutional Vital Signs, click to edit/add: Last Vital Signs Temp 97.9 F 06/03/24 08:11 Pulse 73 06/03/24 08:11 Resp 18 06/03/24 08:11 BP 128/83 06/03/24 08:11 Pulse Ox 96 06/03/24 08:11 O2 Del Method Room Air 06/03/24 08:11 Documenting provider has reviewed patient's vital signs: yes Common normals: no apparent distress Chest Common normals: inspection of chest normal Respiratory Common normals: normal respiratory effort and no retractions Cardio Common normals: regular rate and regular rhythm GI Common normals: Normal to inspection, nondistended, normoactive bowel sounds present Extremity Common normals: abnormal to inspection (Dressing in place, will have nurse send picture when doing dressing change) Progress Note: Objective Labs Labs: Short CBC 06/02/24 06/03/24 Range/Units 12:21 06:08 WBC 17.0 H 13.1 H (4.0-11.0) 10^3/uL Hgb 15.2 14.3 (12.0-16.0) g/dL Hct 47.8 45.3 (36.0-48.0) % Plt Count 317 291 (150-450) 10^3/uL BMP 06/02/24 06/03/24 12:21 06:08 Sodium 132 L 135 L Potassium 4.3 4.1 Chloride 95 L 97 L Carbon Dioxide 30.2 28.7 BUN 11.0 22.0 H Creatinine 1.04 H 0.88 Glucose 170 H 114 H Calcium 9.4 9.4 Liver Function 06/02/24 Range/Units 12:21 Total Bilirubin 0.9 (0.2-1.0) mg/dL AST 27 (15-37) U/L ALT 39 (14-59) U/L Alkaline Phosphatase 113 (46-116) U/L Albumin 3.0 L (3.4-5.0) g/dL Progress Note: A&P Assessment and Plan (1) Abscess of tendon sheath, right ankle and foot: (2) Cellulitis: Qualifiers: Laterality: right Site of cellulitis: extremity Site of cellulitis of extremity: lower extremity Qualified Code(s): L03.115 - Cellulitis of right lower limb (3) Neuropathy: Plan Admission findings: Sinus tachycardia, uncontrolled hypertension, significant leukocytosis over 17,000, acute elevation in creatinine all secondary to right foot cellulitis with possible abscess formation Right foot cellulitis with no abscess formation noted on CT scan-will have Dr. Gentile to review as well, white blood cell count is improved, this continue with current antibiotics Hyponatremia-monitor daily -improved Acute elevation in creatinine-will just encourage p.o. intake repeat labs in a.m., baseline creatinine 0.76 admission creatinine 1.04 which is 136.8% above baseline-improved Peripheral neuropathy-continue with current medications-May need to adjust dosing Asthma without acute exacerbation-continue with home medications Depression-continue with home medications Bladder spasms-continue with home medications Generalized arthritis-continue with home medications Admission status: Patient with failed outpatient treatment of the right foot cellulitis that possibly now is progressed to abscess, CT scan is pending, medically necessary treatment will span 2 midnights, inpatient status, likely need for surgery ?
[2024-06-03] MEDS: JUVEN PACKET 1 PACKET PO ×2 (09:36→20:15)
[2024-06-03] MEDS: ENSURE HP 237 ML LIQUID PO ×2 (09:36→20:15)
[2024-06-03] MEDS: 0.9 % SODIUM CHLORIDE 250 ML 10 ML IV (09:37)
[2024-06-03 10:10] LABS: Source Blood; mecA/C and MREJ (MRSA) NOT DETECTED (NOT DETECTE)
[2024-06-03 10:12] LABS: Staphylococcus spp. DETECTED (NOT DETECTE)
[2024-06-03] MEDS: GABAPENTIN 300 MG CAPSULE PO ×3 (10:26→21:22)
[2024-06-03] MEDS: SERTRALINE HCL 100 MG TABLET PO (10:26)
[2024-06-03 12:07] LABS: Glucometer 143 mg/dL (74-106)
--- NOTE | 2024-06-03 12:20 | PM.PN ---
Progress Note: Subjective Subjective Interval history: Patient seen at bedside stating she feels well and only complaint is foot pain with pressure. She relates to being nonweightbearing when going to the bathroom. She was happy to hear the good news of no abscess from her CT scan. Exam Narrative Exam Narrative: Skin: Dressing with serosanguineous drainage. Large partial-thickness ulceration from previous blister which spans the width of the foot. There is a central area of full-thickness ulceration which measures 1.8 x 2.1 cm. 3 to 4 cm of surrounding erythema. Vascular: Pedal pulses are palpable. Absent digital hair growth. Localized right foot swelling Musculoskeletal: Compartments are soft and compressible. Tenderness to palpation over the ulceration and area of erythema. No calf pain on squeeze Constitutional Vital Signs, click to edit/add: Last Vital Signs Temp 97.4 F L 06/03/24 12:07 Pulse 77 06/03/24 12:07 Resp 18 06/03/24 12:07 BP 130/80 06/03/24 12:07 Pulse Ox 93 L 06/03/24 12:07 O2 Del Method Room Air 06/03/24 12:07 Progress Note: Objective Labs Labs: Short CBC 06/02/24 06/03/24 Range/Units 12:21 06:08 WBC 17.0 H 13.1 H (4.0-11.0) 10^3/uL Hgb 15.2 14.3 (12.0-16.0) g/dL Hct 47.8 45.3 (36.0-48.0) % Plt Count 317 291 (150-450) 10^3/uL BMP 06/02/24 06/03/24 12:21 06:08 Sodium 132 L 135 L Potassium 4.3 4.1 Chloride 95 L 97 L Carbon Dioxide 30.2 28.7 BUN 11.0 22.0 H Creatinine 1.04 H 0.88 Glucose 170 H 114 H Calcium 9.4 9.4 Liver Function 06/02/24 Range/Units 12:21 Total Bilirubin 0.9 (0.2-1.0) mg/dL AST 27 (15-37) U/L ALT 39 (14-59) U/L Alkaline Phosphatase 113 (46-116) U/L Albumin 3.0 L (3.4-5.0) g/dL Progress Note: A&P Assessment and Plan (1) Cellulitis: Qualifiers: Laterality: right Site of cellulitis: extremity Site of cellulitis of extremity: lower extremity Qualified Code(s): L03.115 - Cellulitis of right lower limb (2) Neuropathy: (3) Ulcer of right foot with fat layer exposed: Plan Patient seen and evaluated. No surgery planned as the CT scan ruled out evidence of abscess. Recommend continued medical management with current antibiotics given WBC is trending down Order placed to apply Santyl to the central area of the ulceration and cover with Adaptic, gauze, Kerlix and Everett wrap Will consult wound care for offloading shoe Patient should follow-up in the wound center within 1 week from discharge
[2024-06-03] MEDS: LEVOFLOXACIN IN DEXTROSE 5 % 750 MG/150 ML PREMIX 100 MG IV (15:12)
[2024-06-03 16:20] LABS: Glucometer 143 mg/dL (74-106)
[2024-06-03] MEDS: ROPINIROLE HCL 1 MG TABLET 2 MG PO (20:15)
[2024-06-03] MEDS: MONTELUKAST SODIUM 10 MG TABLET PO (21:22)
[2024-06-03] MEDS: CYCLOBENZAPRINE HCL 10 MG TABLET PO (21:22)
[2024-06-03 21:26] LABS: Glucometer 136 mg/dL (74-106)
[2024-06-04] MEDS: CLINDAMYCIN PHOSPHATE/D5W 600 MG/50 ML PREMIX 100 MG IV ×4 (02:06→21:40)
[2024-06-04 03:22] VITALS: BP 143/88; PULSE 77; TEMP 36.4; O2SAT 91
[2024-06-04] MEDS: GABAPENTIN 300 MG CAPSULE PO ×3 (05:24→21:40)
[2024-06-04 06:01] LABS: Basophils Absolute Auto 0.1 10^3/uL (0.0-0.1); Basophils Percent Auto 0.7 % (0.2-2.0); Eosinophils Absolute Auto 0.6 10^3/uL (0.0-0.7); Eosinophils Percent Auto 5.1 % (0.9-7.0); Hemoglobin 14.2 g/dL (12.0-16.0); Immature Granulocytes Abs Auto 0.34 10^3/uL (0.00-0.03); Lymphocytes Absolute Auto 1.8 10^3/uL (1.2-3.8); Lymphocytes Percent Auto 15.4 % (20.5-60.0); Mean Corpuscular HGB Conc 31.6 g/dL (29.9-35.2); Mean Corpuscular Volume 79.1 fL (81.0-99.0); Mean Platelet Volume 10.2 fL (9.5-13.5); Monocytes Absolute Auto 1.4 10^3/uL (0.3-0.8); Monocytes Percent Auto 12.5 % (1.7-12.0); Neutrophils Absolute Auto 7.2 10^3/uL (1.4-6.5); Neutrophils Percent Auto 63.3 % (43.0-75.0); Platelet Count 305 10^3/uL (150-450); Red Blood Count 5.69 10^6/uL (4.20-5.40); Red Cell Distribution Width 15.6 % (11.0-15.0); White Blood Count 11.4 10^3/uL (4.0-11.0)
[2024-06-04 06:19] LABS: Anion Gap 15.5; BUN Creatinine Ratio 23.8; Calcium 9.5 mg/dL (8.5-10.1); Carbon Dioxide 27.1 mmol/L (21.0-32.0); Chloride 98 mmol/L (98-107); Estimated GFR (African America >60 (>=60 mL/min/1.73m^2); Estimated GFR (Non-African Ame >60 (>=60 mL/min/1.73m^2); Glucose 151 mg/dL (74-106); Potassium 3.6 mmol/L (3.5-5.1); Sodium 137 mmol/L (136-145)
[2024-06-04 06:23] LABS: C Reactive Protein 18.96 mg/dL (<=0.50)
--- NOTE | 2024-06-04 06:51 | P.PN_ITS ---
Progress Note: Subjective Subjective Interval history: No new complaints, pain improving Exam Constitutional Vital Signs, click to edit/add: Last Vital Signs Temp 97.6 F 06/04/24 03:22 Pulse 77 06/04/24 03:22 Resp 20 06/04/24 03:22 BP 143/88 H 06/04/24 03:22 Pulse Ox 91 L 06/04/24 03:22 O2 Del Method Room Air 06/04/24 03:22 Documenting provider has reviewed patient's vital signs: yes Common normals: no apparent distress Chest Common normals: inspection of chest normal Respiratory Common normals: normal respiratory effort and clear to auscultation bilaterally Cardio Common normals: regular rate, regular rhythm and no murmurs GI Common normals: Normal to inspection, nondistended, normoactive bowel sounds present Extremity Common normals: abnormal to inspection (Dressing in place, will have nurse send picture when doing dressing change) Progress Note: Objective Labs Labs: Short CBC 06/04/24 Range/Units 05:25 WBC 11.4 H (4.0-11.0) 10^3/uL Hgb 14.2 (12.0-16.0) g/dL Hct 45.0 (36.0-48.0) % Plt Count 305 (150-450) 10^3/uL BMP 06/04/24 05:25 Sodium 137 Potassium 3.6 Chloride 98 Carbon Dioxide 27.1 BUN 20.0 H Creatinine 0.84 Glucose 151 H Calcium 9.5 Progress Note: A&P Assessment and Plan (1) Cellulitis: Qualifiers: Laterality: right Site of cellulitis: extremity Site of cellulitis of extremity: lower extremity Qualified Code(s): L03.115 - Cellulitis of right lower limb (2) Neuropathy: (3) Ulcer of right foot with fat layer exposed: (4) Abscess of tendon sheath, right ankle and foot: Plan Admission findings: Sinus tachycardia, uncontrolled hypertension, significant leukocytosis over 17,000, acute elevation in creatinine all secondary to right foot cellulitis with possible abscess formation Right foot cellulitis due to Staphylococcus aureus with positive blood culture bacteremia-with no abscess formation noted on CT scan-will have Dr. Gentile to review as well, white blood cell count is improved again today, this continue with current antibiotics, CRP continues to improve but is still 37.9 times normal Hyponatremia-monitor daily -resolved Acute elevation in creatinine-stable Peripheral neuropathy-continue with current medications-May need to adjust dosing Asthma without acute exacerbation-continue with home medications Depression-continue with home medications Bladder spasms-continue with home medications Generalized arthritis-continue with home medications Admission status: Patient with failed outpatient treatment of the right foot cellulitis that possibly now is progressed to abscess, CT scan is pending, medically necessary treatment will span 2 midnights, inpatient status, likely need for surgery ?
[2024-06-04 07:33] VITALS: BP 134/84; PULSE 78; TEMP 36.9; O2SAT 92
--- NOTE | 2024-06-04 07:50 | CM.NOTE ---
Rounds made with Dr. Quinn, no discharge today. Continue IV antibiotics, possible discharge tomorrow.
[2024-06-04] MEDS: JUVEN PACKET 1 PACKET PO ×2 (08:51→21:39)
[2024-06-04] MEDS: CELECOXIB 200 MG CAPSULE PO (08:52)
[2024-06-04] MEDS: CANAGLIFLOZIN 100 MG TABLET 300 MG PO (08:52)
[2024-06-04] MEDS: SERTRALINE HCL 100 MG TABLET PO (08:53)
[2024-06-04] MEDS: SOLIFENACIN SUCCINATE 10 MG TABLET PO (08:53)
[2024-06-04] MEDS: ROPINIROLE HCL 1 MG TABLET 2 MG PO ×2 (08:53→21:40)
[2024-06-04] MEDS: COLLAGENASE CLOSTRIDIUM HIST. 250 UNITS/GM 30 GRAM TUBE 1 APPLIC TOPICAL (08:54)
[2024-06-04] MEDS: 0.9 % SODIUM CHLORIDE 250 ML 10 ML IV (08:55)
--- NOTE | 2024-06-04 09:16 | W.PM.WC_ITS ---
<Statement entered by Jacob Bolaños RN - 06/04/24 09:16> This documentation has been reviewed and approved. Wound Consult Note Assessment and Plan (1) Cellulitis: Qualifiers: Laterality: right Site of cellulitis: extremity Site of cellulitis of extremity: lower extremity Qualified Code(s): L03.115 - Cellulitis of right lower limb (2) Neuropathy: (3) Ulcer of right foot with fat layer exposed: Reason for Consult: peg shoe application Assessment and Plan: Dr. Gentile consulted wound care to fit and dispense a peg assist surgical shoe for patient. Dressing changed today per Dr. Gentile's orders. Cellulitis is within marked margins. Skin is warm. Wound bed is pale. Changed dressing as ordered and applied peg shoe with pegs removed to area of ulceration. Updated Dr. Gentile. Ordered partial weightbearing with walker for right foot. PT and OT made aware. Bedside RN present at bedside during dressing change today and updated Dr. Quinn. Orders to continue per Dr. Seferino Bolaños RN, CWON (4) Abscess of tendon sheath, right ankle and foot: Wound Assessment Wound Right Foot: Wound Type: Blister (right plantar mid foot open blister with surrounding cellulitis) Is This a Chronic Wound: No Length: 7.5 Width: 2 Depth: 0.2 Wound Bed Appearance: Pale, Slough and Peeling Skin Percentage Granulated: 0 Percentage Slough: 100 Wound Margins Description: irregular edges from deroofed blister Surrounding Tissue Appearance: Dark Red Surrounding Tissue Temperature: warm Drainage Description: Serosanguineous Drainage Amount: Moderate Drainage Odor: No Odor Wound Topical Solution/Irrigant: Enzymatic Gel (santyl) Primary Dressing: Non-Adherent Gauze Pad (adaptic) Secondary Dressing: covere with 4x4s, gauze and azalea wrap Dressing Change Patient Tolerance: Tolerated Well
--- NOTE | 2024-06-04 11:21 | SWNOTE1 ---
SW was consulted to completed Advanced Directives with patient. SW stopped in to speak with pt. Pt has a knee scooter in room, walker, and fitted shoe. Pt voiced she did not like the knee scooter and she is going to use a walker at home if she needs it. She will be able to bear weight on heel/toe. Pt has no concerns about returning home. SW asked if she would be able to do her own dressing changes if she is required daily dressing changes? She stated yes and she has other family in home as well. SW offered to complete HCPOA with patient. Pt voiced she does not want to do it. SW did express the benefits of completing one sooner than later and let pt know that she can schedule with SW any time to complete. She voiced understanding.
--- NOTE | 2024-06-04 11:30 | SWNOTE1 ---
SW did review recommendations of knee scooter and that pt had voiced interest in renting knee scooter. When SW was in room and spoke with pt about it, she voiced it hurt her knee and she is going to stick with using a walker.
[2024-06-04 12:00] VITALS: BP 145/84; PULSE 75; TEMP 36.8; O2SAT 95
[2024-06-04] MEDS: LEVOFLOXACIN IN DEXTROSE 5 % 750 MG/150 ML PREMIX 100 MG IV (15:40)
[2024-06-04 15:45] VITALS: BP 137/79; PULSE 72; TEMP 36.8; O2SAT 95
[2024-06-04 20:00] VITALS: BP 125/70; PULSE 74; TEMP 36.8; O2SAT 95
[2024-06-04 20:05] VITALS: O2SAT 96
[2024-06-04] MEDS: CYCLOBENZAPRINE HCL 10 MG TABLET PO (21:40)
[2024-06-04] MEDS: MONTELUKAST SODIUM 10 MG TABLET PO (21:40)
[2024-06-05] VITALS (7 sets, daily range): BP systolic 107–149; BP diastolic 69–92; PULSE 63–78; TEMP 36.5–37.2; O2SAT 94–96
[2024-06-05] MEDS: CLINDAMYCIN PHOSPHATE/D5W 600 MG/50 ML PREMIX 100 MG IV ×4 (01:17→20:51)
[2024-06-05] MEDS: GABAPENTIN 300 MG CAPSULE PO ×3 (05:03→21:29)
[2024-06-05 05:30] LABS: Basophils Absolute Auto 0.1 10^3/uL (0.0-0.1); Basophils Percent Auto 0.8 % (0.2-2.0); Eosinophils Absolute Auto 0.6 10^3/uL (0.0-0.7); Eosinophils Percent Auto 6.3 % (0.9-7.0); Hematocrit 44.4 % (36.0-48.0); Immature Granulocytes Abs Auto 0.22 10^3/uL (0.00-0.03); Immature Granulocytes Pct Auto 2.4 % (0.0-0.5); Lymphocytes Absolute Auto 1.4 10^3/uL (1.2-3.8); Lymphocytes Percent Auto 15.7 % (20.5-60.0); Mean Corpuscular HGB Conc 31.5 g/dL (29.9-35.2); Mean Corpuscular Hemoglobin 24.9 pg (26.7-34.0); Mean Platelet Volume 9.7 fL (9.5-13.5); Monocytes Absolute Auto 1.1 10^3/uL (0.3-0.8); Monocytes Percent Auto 11.8 % (1.7-12.0); Neutrophils Absolute Auto 5.7 10^3/uL (1.4-6.5); Platelet Count 307 10^3/uL (150-450); Red Blood Count 5.62 10^6/uL (4.20-5.40); Red Cell Distribution Width 15.8 % (11.0-15.0); White Blood Count 9.1 10^3/uL (4.0-11.0)
--- NOTE | 2024-06-05 05:42 | P.PN_ITS ---
Progress Note: Subjective Subjective Interval history: Patient is nonweightbearing but she does say she is having continued less pain than admission Exam Constitutional Vital Signs, click to edit/add: Last Vital Signs Temp 98.2 F 06/05/24 04:00 Pulse 77 06/05/24 04:00 Resp 18 06/05/24 04:00 BP 116/69 06/05/24 04:00 Pulse Ox 94 L 06/05/24 04:00 O2 Del Method Room Air 06/05/24 04:00 Documenting provider has reviewed patient's vital signs: yes Common normals: no apparent distress Chest Common normals: inspection of chest normal Respiratory Common normals: normal respiratory effort and no retractions Cardio Common normals: regular rate, S1 normal heart sound, S2 normal heart sound and no murmurs GI Common normals: Normal to inspection, nondistended, normoactive bowel sounds present, soft to palpation and non-tender Extremity Common normals: abnormal to inspection (Dressing in place, will have nurse send picture when doing dressing change) Progress Note: Objective Labs Labs: Short CBC 06/04/24 06/05/24 Range/Units 05:25 05:03 WBC 11.4 H 9.1 (4.0-11.0) 10^3/uL Hgb 14.2 14.0 (12.0-16.0) g/dL Hct 45.0 44.4 (36.0-48.0) % Plt Count 305 307 (150-450) 10^3/uL BMP 06/04/24 05:25 Sodium 137 Potassium 3.6 Chloride 98 Carbon Dioxide 27.1 BUN 20.0 H Creatinine 0.84 Glucose 151 H Calcium 9.5 Progress Note: A&P Assessment and Plan (1) Cellulitis: Qualifiers: Laterality: right Site of cellulitis: extremity Site of cellulitis of extremity: lower extremity Qualified Code(s): L03.115 - Cellulitis of right lower limb (2) Neuropathy: (3) Ulcer of right foot with fat layer exposed: (4) Abscess of tendon sheath, right ankle and foot: Plan Admission findings: Sinus tachycardia, uncontrolled hypertension, significant leukocytosis over 17,000, acute elevation in creatinine all secondary to right foot cellulitis with possible abscess formation Right foot cellulitis due to Staphylococcus aureus with positive blood culture bacteremia-check and blood cultures later today, still awaiting sensitivities, likely a resistant organism, need to maintain IV antibiotics until sensitivities have returned, CRP is still elevated but continues to improve, is still 25 times normal Hyponatremia-monitor daily -resolved Acute elevation in creatinine-stable Peripheral neuropathy-continue with current medications-May need to adjust dosing Asthma without acute exacerbation-continue with home medications Depression-continue with home medications Bladder spasms-continue with home medications Generalized arthritis-continue with home medications Admission status: Patient with failed outpatient treatment of the right foot cellulitis that possibly now is progressed to abscess, CT scan is pending, medically necessary treatment will span 2 midnights, inpatient status, likely need for surgery ?
[2024-06-05 05:49] LABS: Anion Gap 12.6; BUN Creatinine Ratio 20.5; Calcium 9.1 mg/dL (8.5-10.1); Carbon Dioxide 27.5 mmol/L (21.0-32.0); Chloride 99 mmol/L (98-107); Estimated GFR (African America >60 (>=60 mL/min/1.73m^2); Estimated GFR (Non-African Ame >60 (>=60 mL/min/1.73m^2); Glucose 155 mg/dL (74-106); Potassium 4.1 mmol/L (3.5-5.1); Sodium 135 mmol/L (136-145)
[2024-06-05 05:52] LABS: C Reactive Protein 12.54 mg/dL (<=0.50)
--- NOTE | 2024-06-05 08:30 | CM.NOTE ---
Rounds made with Dr. Quinn. Dr. Quinn reviews plan of care. Still awaiting culture results. Potential discharge when results are final.
[2024-06-05] MEDS: SOLIFENACIN SUCCINATE 10 MG TABLET PO (09:12)
[2024-06-05] MEDS: ROPINIROLE HCL 1 MG TABLET 2 MG PO ×2 (09:12→20:51)
[2024-06-05] MEDS: JUVEN PACKET 1 PACKET PO ×2 (09:12→20:51)
[2024-06-05] MEDS: ACETAMINOPHEN 500 MG TABLET 1000 MG PO ×2 (09:12→15:32)
[2024-06-05] MEDS: COLLAGENASE CLOSTRIDIUM HIST. 250 UNITS/GM 30 GRAM TUBE 1 APPLIC TOPICAL (09:13)
[2024-06-05] MEDS: CANAGLIFLOZIN 100 MG TABLET 300 MG PO (09:13)
[2024-06-05] MEDS: SERTRALINE HCL 100 MG TABLET PO (09:13)
[2024-06-05] MEDS: CELECOXIB 200 MG CAPSULE PO (09:13)
[2024-06-05] MEDS: 0.9 % SODIUM CHLORIDE 250 ML 10 ML IV (15:32)
[2024-06-05] MEDS: LEVOFLOXACIN IN DEXTROSE 5 % 750 MG/150 ML PREMIX 100 MG IV (16:08)
--- NOTE | 2024-06-05 16:45 | PM.PN ---
Progress Note: Subjective Subjective Interval history: Patient seen at bedside. Her CRP and WBC continue to trend down and her pain is improved. She denies fever, chills, night sweats, calf pain, shortness of breath, chest pain. She relates that she only has pain to her foot when walking or placing weight on her right foot Exam Narrative Exam Narrative: Ulceration noted to the plantar central aspect of the right foot with significant surrounding maceration. Persistent redness in the instep of the foot. No fluctuance. Mild tenderness on direct palpation to the ulcer Constitutional Vital Signs, click to edit/add: Last Vital Signs Temp 98.9 F 06/05/24 14:08 Pulse 66 06/05/24 14:08 Resp 18 06/05/24 14:08 BP 121/83 06/05/24 14:08 Pulse Ox 95 06/05/24 14:08 O2 Del Method Room Air 06/05/24 14:08 Progress Note: Objective Labs Labs: Short CBC 06/05/24 Range/Units 05:03 WBC 9.1 (4.0-11.0) 10^3/uL Hgb 14.0 (12.0-16.0) g/dL Hct 44.4 (36.0-48.0) % Plt Count 307 (150-450) 10^3/uL BMP 06/05/24 05:03 Sodium 135 L Potassium 4.1 Chloride 99 Carbon Dioxide 27.5 BUN 18.0 Creatinine 0.88 Glucose 155 H Calcium 9.1 Progress Note: A&P Assessment and Plan (1) Cellulitis: Qualifiers: Laterality: right Site of cellulitis: extremity Site of cellulitis of extremity: lower extremity Qualified Code(s): L03.115 - Cellulitis of right lower limb (2) Neuropathy: (3) Ulcer of right foot with fat layer exposed: (4) Abscess of tendon sheath, right ankle and foot: Plan Patient seen at bedside. Discontinue Santyl for now as it may be causing a great deal of the maceration. Daily dressing changes with Betadine, Xeroform, 4 x 4's, Kerlix and Everett wrap Patient may partial weight-bear on her right foot with peg shoe Staph aureus from blood cultures but sensitivities have not returned yet. Culture swabs from the right foot taken on day of admission are pending. Call with updates
[2024-06-05] MEDS: MONTELUKAST SODIUM 10 MG TABLET PO (21:29)
[2024-06-05] MEDS: CYCLOBENZAPRINE HCL 10 MG TABLET PO (21:29)
[2024-06-06 02:00] VITALS: BP 121/79; PULSE 68; TEMP 36.6; O2SAT 97
[2024-06-06] MEDS: CLINDAMYCIN PHOSPHATE/D5W 600 MG/50 ML PREMIX 100 MG IV ×2 (02:33→09:50)
[2024-06-06 04:15] VITALS: O2SAT 93
[2024-06-06] MEDS: ACETAMINOPHEN 500 MG TABLET 1000 MG PO (04:32)
[2024-06-06 05:52] LABS: Basophils Absolute Auto 0.1 10^3/uL (0.0-0.1); Basophils Percent Auto 1.1 % (0.2-2.0); Eosinophils Absolute Auto 0.6 10^3/uL (0.0-0.7); Eosinophils Percent Auto 6.2 % (0.9-7.0); Hematocrit 46.2 % (36.0-48.0); Hemoglobin 14.6 g/dL (12.0-16.0); Immature Granulocytes Abs Auto 0.35 10^3/uL (0.00-0.03); Immature Granulocytes Pct Auto 3.8 % (0.0-0.5); Lymphocytes Absolute Auto 1.9 10^3/uL (1.2-3.8); Lymphocytes Percent Auto 20.3 % (20.5-60.0); Mean Corpuscular HGB Conc 31.6 g/dL (29.9-35.2); Mean Corpuscular Hemoglobin 25.1 pg (26.7-34.0); Mean Corpuscular Volume 79.5 fL (81.0-99.0); Mean Platelet Volume 9.8 fL (9.5-13.5); Monocytes Absolute Auto 1.1 10^3/uL (0.3-0.8); Monocytes Percent Auto 11.6 % (1.7-12.0); Neutrophils Absolute Auto 5.3 10^3/uL (1.4-6.5); Platelet Count 328 10^3/uL (150-450); Red Blood Count 5.81 10^6/uL (4.20-5.40); Red Cell Distribution Width 15.9 % (11.0-15.0); White Blood Count 9.3 10^3/uL (4.0-11.0)
[2024-06-06 06:06] LABS: C Reactive Protein 9.36 mg/dL (<=0.50)
--- NOTE | 2024-06-06 06:06 | P.DS_ITS ---
DS: Providers Provider Date of admission: 06/02/24 13:06 Primary care physician: [facility] Consults: 06/02/24 Consult to Director Multimedia Routine Reason for consult:: Advanced Directives 06/02/24 14:50 Occupational Therapy Eval and Treat Routine Reason for consultation: Only if needed for Rehab Has provider been notified: No Physical Therapy Eval and Treat Routine Reason for consultation: Eval and Treat Has provider been notified: No 06/02/24 16:01 Physical Therapy Eval and Treat Routine Reason for consultation: Gait training, nonweightbearing right foot Has provider been notified: No 06/03/24 12:37 Consult to Wound Care Routine Consulting Provider: Jacob Bolaños Reason for consultation: Peg shoe - right plantar central foot ulcer Has provider been notified: No DS: Diagnosis Discharge Diagnosis (1) Cellulitis: Qualifiers: Laterality: right Site of cellulitis: extremity Site of cellulitis of extremity: lower extremity Qualified Code(s): L03.115 - Cellulitis of right lower limb (2) Neuropathy: (3) Ulcer of right foot with fat layer exposed: (4) Abscess of tendon sheath, right ankle and foot: Plan Admission findings: Sinus tachycardia, uncontrolled hypertension, significant leukocytosis over 17,000, acute elevation in creatinine all secondary to right foot cellulitis with possible abscess formation Right foot cellulitis due to Staphylococcus aureus with positive blood culture bacteremia-check and blood cultures later today, still awaiting sensitivities, likely a resistant organism, need to maintain IV antibiotics until sensitivities have returned, CRP is still elevated but continues to improve, is still 25 times normal Hyponatremia-monitor daily -resolved Acute elevation in creatinine-stable Peripheral neuropathy-continue with current medications-May need to adjust dosing Asthma without acute exacerbation-continue with home medications Depression-continue with home medications Bladder spasms-continue with home medications Generalized arthritis-continue with home medications Admission status: Patient with failed outpatient treatment of the right foot cellulitis that possibly now is progressed to abscess, CT scan is pending, medically necessary treatment will span 2 midnights, inpatient status, likely need for surgery ? ? DS: Summary Hospital Course Hospital Course: Patient had increasing pain and swelling of her right foot, who presented to the emergency room and found to have significant cellulitis, concern for abscess, CT did not confirm, patient has significant leukocytosis on admission and that slowly improved over the first 3 days of the hospitalization, on day 3 her blood cultures did turn positive for MRSA although no sensitivities have returned, she is overall improving with levofloxacin and clindamycin pain still persisting but overall is improved, there is no erythema outside the line of demarcation but is not significantly regressed either, at this point with improvement in her white blood cell count and sensitivity likely to oral agents that she is currently on through the IV, will change patient to oral and discharge patient to home with close follow-up, sensitivities for the blood cultures should boot turner positive hopefully in the next 1 to 2 days. So MRSA since sepsis, medications see list, follow-up with PCP and wound within the next week. Status at Discharge Overall status at discharge: patient is not back to baseline Time Spent with Patient Time attestation: Total time spent providing and/or coordinating discharge services: Time spent: greater than 30 minutes Exam Constitutional Vital Signs, click to edit/add: Last Vital Signs Temp 97.8 F 06/06/24 02:00 Pulse 68 06/06/24 02:00 Resp 18 06/06/24 02:00 BP 121/79 06/06/24 02:00 Pulse Ox 93 L 06/06/24 04:15 O2 Del Method Room Air 06/06/24 04:15 Documenting provider has reviewed patient's vital signs: yes Common normals: no apparent distress Chest Common normals: inspection of chest normal Respiratory Common normals: normal respiratory effort and clear to auscultation bilaterally Cardio Common normals: regular rate, regular rhythm and S1 normal heart sound GI Common normals: soft to palpation and non-tender; negative for Normal to inspection, nondistended, normoactive bowel sounds present (Morbidly obese) Extremity Common normals: abnormal to inspection (Dressing in place, will have nurse send picture when doing dressing change) DS: Data Data Completed and Pending Labs on day of discharge: Labs from last 24 hours 06/06/24 05:02 WBC 9.3 RBC 5.81 H Hgb 14.6 Hct 46.2 MCV 79.5 L MCH 25.1 L MCHC 31.6 RDW 15.9 H Plt Count 328 MPV 9.8 Neut % (Auto) 57.0 Lymph % (Auto) 20.3 L Lamb % (Auto) 11.6 Eos % (Auto) 6.2 Baso % (Auto) 1.1 Neut # (Auto) 5.3 Lymph # (Auto) 1.9 Lamb # (Auto) 1.1 H Eos # (Auto) 0.6 Baso # (Auto) 0.1 Abs Immat Gran (auto) 0.35 H Imm/Tot Granulo (auto) 3.8 H Preliminary micro results at discharge 06/02/24 12:21 Bacterial ID and Susceptibility - Preliminary Blood - Right Antecubital Staphylococcus aureus 06/02/24 12:23 Bacterial ID and Susceptibility - Preliminary Blood - Left Antecubital Staphylococcus aureus 06/02/24 12:23 Blood Culture Result 2 - Preliminary Blood NO GROWTH AT 36-48 HOURS. FINAL TO FOLLOW. 06/02/24 12:21 Blood Culture Result 1 - Preliminary Blood NO GROWTH AT 36-48 HOURS. FINAL TO FOLLOW. Discharge Plan Discharge Disposition: Home, Self-Care Discharge Medications: New clindamycin HCl 300 mg capsule 300 mg PO Q6H 21 Days Qty: 84 0RF levofloxacin 750 mg tablet 750 mg PO Q24H Qty: 21 0RF Continued ammonium lactate 12 % cream 1 applic TOPICAL DAILY cyclobenzaprine 10 mg tablet 10 mg PO BEDTIME sertraline 100 mg tablet 100 mg PO Q24H hydroxyzine HCl 50 mg tablet 50 mg PO DAILY PRN (Reason: itching) ropinirole 2 mg tablet 2 mg PO BID gabapentin 300 mg capsule 300 mg PO Q8H montelukast 10 mg tablet 10 mg PO BEDTIME solifenacin 10 mg tablet 10 mg PO DAILY Jardiance 25 mg tablet 25 mg PO DAILY celecoxib 200 mg capsule 200 mg PO DAILY Diet: advance to your usual diet Print Language: Turkish Patient Instructions: Cellulitis (ED) Activity Restrictions/Additional Instructions: Daily dressing change to right foot. Use betadine, then xeroform, gauze, (ABD if a lot of drainage), wrap with kerlix then azalea bandage Forms: Portal Instructions Follow Up Appointments: May. @10am with [facility] in [address] [phone] . May. @ 1pm at [facility] [address] [phone] Discharge Date/Time: 06/06/24 12:21
[2024-06-06 06:07] LABS: Anion Gap 11.9; BUN Creatinine Ratio 27.4; Calcium 9.3 mg/dL (8.5-10.1); Carbon Dioxide 28.4 mmol/L (21.0-32.0); Chloride 99 mmol/L (98-107); Estimated GFR (African America >60 (>=60 mL/min/1.73m^2); Estimated GFR (Non-African Ame >60 (>=60 mL/min/1.73m^2); Glucose 123 mg/dL (74-106); Potassium 4.3 mmol/L (3.5-5.1); Sodium 135 mmol/L (136-145)
[2024-06-06] MEDS: GABAPENTIN 300 MG CAPSULE PO (06:29)
[2024-06-06 07:57] VITALS: BP 133/85; PULSE 68; TEMP 36.3; O2SAT 93
--- NOTE | 2024-06-06 08:45 | CM.NOTE ---
Rounds made with Dr. Quinn, pt will discharge to home and f/u with wound clinic and PCP.
--- NOTE | 2024-06-06 09:27 | CM.NOTE ---
Important Message From Medicare discussed with pt, pt verbalizes understanding and signs paper. Original given to pt and copy placed on pt's chart. Paper signed late d/t incorrect insurance on file.
[2024-06-06] MEDS: CANAGLIFLOZIN 100 MG TABLET 300 MG PO (09:51)
[2024-06-06] MEDS: ROPINIROLE HCL 1 MG TABLET 2 MG PO (09:51)
[2024-06-06] MEDS: SERTRALINE HCL 100 MG TABLET PO (09:51)
[2024-06-06] MEDS: CELECOXIB 200 MG CAPSULE PO (09:51)
[2024-06-06] MEDS: SOLIFENACIN SUCCINATE 10 MG TABLET PO (09:52)
[2024-06-06] MEDS: JUVEN PACKET 1 PACKET PO (09:52)
[2024-06-06 11:46] VITALS: BP 149/93; PULSE 74; TEMP 36.7; O2SAT 96
[2024-06-06 12:05] VITALS: O2SAT 95
--- NOTE | 2024-06-07 15:03 | CM.DCFOLLOWU ---
Person spoke with:patient How are you feeling?well How is your pain? none Did you understand your discharge instructions?yes Do you have any questions about your discharge instructions?no Were you given any prescriptions at discharge?yes Were you able to get your prescriptions filled?yes Do you understand how to take your medications as ordered?yes Do you have any questions about your follow up appointment and do you plan to keep your follow up appointment? no questions, reviewed follow ups Is there anything else that you would like to discuss?no Questions/Comments/Concerns/Other: none
--- NOTE | 2024-06-08 12:34 | CM.NOTE ---
Culture results fax[facility] in [place], [place]. Appointment 06/13/24.
--- NOTE | 2024-06-11 08:35 | CM.NOTE ---
Wound cultures faxed to [facility] for JEREMIAS Santoyo to review as well. Cultures faxed to PCP on 2024
== END 2024-06-06 12:21 | disposition home or self-care (01) | DRG 603 ==
LOC: ER 13:45 → ICU 15:13 → MS 23:50
PROVIDERS: Admitting Provider Family Medicine; Emergency Provider Emergency Medicine; Visit Provider Family Medicine
DX: L03.115 Cellulitis of right lower limb (principal); E87.1 Hypo-osmolality and hyponatremia; R78.81 Bacteremia; Z68.41 Body mass index [BMI] 40.0-44.9, adult; J45.909 Unspecified asthma, uncomplicated; I80.02 Phlebitis and thrombophlebitis of superficial vessels of left lower extremity; E66.9 Obesity, unspecified; Z98.51 Tubal ligation status; Z96.653 Presence of artificial knee joint, bilateral; G62.9 Polyneuropathy, unspecified; I10 Essential (primary) hypertension; Z88.0 Allergy status to penicillin; R79.89 Other specified abnormal findings of blood chemistry; F32.A Depression, unspecified; N32.89 Other specified disorders of bladder; M19.90 Unspecified osteoarthritis, unspecified site; L97.512 Non-pressure chronic ulcer of other part of right foot with fat layer exposed; B95.61 Methicillin susceptible Staphylococcus aureus infection as the cause of diseases classified elsewhere; S90.821A Blister (nonthermal), right foot, initial encounter
CPT/HCPCS: 36415; 73630; 73701; 80048; 80053; 82948; 83605; 85025; 86140; 87040; 87070; 87075; 87076; 87150; 87186; 93971; 94761; 96365; 96375; 97161; 97165; 99285; G0463; J1885

== ENCOUNTER 2024-06-12 15:04 | Outpatient (OUT) | payer MEDICARE, OTHER, MEDICAID, SELFPAY ==
--- OUTSIDE RECORDS SUMMARY | 2024-06-12 15:17 | XMS_ITS | CCD ---
Author Organization [facility] Care Team Providers Care Otr Flatbed Driver Name Role Phone RHEA Alvarado Attending Provider [facility], Services Primary Care Provider [phone] RHEA Alvarado Primary Care Provide r CARLI [...] Attending Provider DO Lorrie Baig Attending Provider [phone] RHEA Alvarado Primary Care Provide r Acosta Schafer Attending Provider [phone] RHEA Ramirez Attending Provider DO Lorrie Baig Referring Provider Dr. Acosta Schafer Attending Un available Pending, Provider Primary Care Unavailable Dr. Acosat Schaferton Attending Un available Pending, Provider Primary [...] Dr. Acosta Tyson Attending Un available Myerholpaula, PERFORMANCE IMPROVEMENT SPECIALIST Elizabeth Hurley Primary Care Provide r Myersaige, PERFORMANCE IMPROVEMENT SPECIALIST Elizabeth K Attending Provider Sindy Davila Unavailable MARII Davila Attending Provider Tyler Jean Unavailable MyerRHEA moulton K Primary Care Provide r MARII Davila Attending Provider MyerPINKY moultonN Elizabeth K Attending Provider MyRHEA morales Attending Provider NO FAMILY, PHYSICIAN Primary Care Provider Unava ilable Myersaige, RHEA Johnson K Primary Care Provide r DO Lorrie Baig Referring Provider [phone] Adamowicz II, DO Krzysztof Prince Attending [...] Drug Allergy 4 Unknown Reaction [facility] Penicillins (antibiotic) (2 sources) Penicillin Drug Allergy 4 [facility] (20 sources) Penicillins; Translations: [Penicillins] Allergy to substance 8 Anaphylaxis [facility] (6 sources) Ibuprofen; Translations: [ibuprofen] Drug Allergy 3 Unknown Reaction [facility] (3 sources) Penicillin V Drug Allergy 3 [facility] (1 source) Penicillin Drug Allergy 4 [facility] Repository Medications Current Medications Medication Drug Class(es) Dates Sig (Normalized) Sig (Original) acetaminophen 325 mg oral tablet (2 sources) Start: 07-01-2022 acetaminophen (TYLENOL) tablet 650 mg Start: 07-01-2022 End: 07-01-2022 acetaminophen (TYLENOL) tabl et 1,000 mg [id number] actuat albuterol 0.09 mg/actuat metered dose [...] Active docusate sodium 50 mg / sennosides, long-term 8.6 mg oral tablet (2 sources) Start: [...] disintegrating tablet 4 mg polyethylene glycol 3350 [id number] mg powder for oral solution (1 source) [...] break. Start: 12-03-2021 take 1 capsule by [facility] once daily venlafaxine (EFFEXOR XR) 75 MG [...] activity/Vol] 33 U/L Normal 7-52 [facility] Comment on above: Performed By: #### F ER, CMP, CBC, FE and TIBC #### [facility] [address] [place], [place] [id number] [facility] #### TOMA SERUM, SPE, KAPPA #### [facility] , Albumin [Mass/volume] in Ser um or PlasmaOrdered By: Krzysztof Salazar on 09-20-2023 Albumin [Mass/Vol] 3.8 g/dL Normal 2.9-4.4 [facility] Comment on above: Performed By: #### F ER, CMP, CBC, FE and TIBC #### [facility] [address] [place] [address] #### TOMA SERUM, SPE, KAPPA #### [facility] , Albumin [Mass/volume] in Ser um or Plasma by Bromocresol green (BCG) dye binding methoOrdered By: Krzysztof Salazar on 09-20-2023 Albumin BCG dye [Mass/Vol] 4.2 g/dL 3.5-5.7 [facility] Alkaline phosphatase [Enzyma tic activity/volume] in Serum or PlasmaOrdered By: Krzysztof Salazar on 09-20-2023 ALP [Catalytic activity/Vol] 79 U/L Normal 34-104 [facility] Comment on above: Performed By: #### F ER, CMP, CBC, FE and TIBC #### [facility] [address] [place] [address] #### TOMA SERUM, SPE, KAPPA #### [facility] , Aspartate aminotransferase [ Enzymatic activity/volume] in Serum or PlasmaOrdered By: Krzysztof Salazar on 09-20-2023 AST [Catalytic activity/Vol] 30 U/L Normal 13-39 [facility] Comment on above: Performed By: #### F ER, CMP, CBC, FE and TIBC #### [facility] [address] [place] [address] #### TOMA SERUM, SPE, KAPPA #### [facility] , Automated basophil %Ordered By: Krzysztof Salazar on 09-20-2023 Basophils/100 WBC (Bld) 0.5 % Normal . [facility] Comment on above: Performed By: #### F ER, CMP, CBC, FE and TIBC #### [facility] [address] [place] [address] #### TOMA SERUM, SPE, KAPPA #### [facility] , Automated basophil countOrde red By: Krzysztof Salazar on 09-20-2023 Basophils (Bld) [#/Vol] 0.0 10*3/uL Normal 0.0-0.2 [facility] Comment on above: Result Comment: PERF ORMED BY: [place] [address] PATHOLOGIST INSIDE SALES DIRECTOR MELODY ELAM M.D. Performed By: #### F ER, CMP, CBC, FE and TIBC #### [address] #### TOMA SERUM, SPE, KAPPA #### [facility] , Automated blood monocyte cou ntOrdered By: Krzysztof Salazar on 09-20-2023 Monocytes (Bld) [#/Vol] 0.7 10*3/uL Normal 0.0-0.8 [facility] Comment on above: Performed By: #### F ER, CMP, CBC, FE and TIBC #### [address] #### TOMA SERUM, SPE, KAPPA #### [facility] , Automated eosinophil %Ordere d By: Krzysztof Salazar on 09-20-2023 Eosinophils/100 WBC (Bld) 2.6 % Normal . [facility] Comment on above: Performed By: #### F ER, CMP, CBC, FE and TIBC #### [place] [address] [place] #### TOMA SERUM, SPE, KAPPA #### [facility] , Automated eosinophil countOr dered By: Krzysztof Salazar on 09-20-2023 Eosinophils (Bld) [#/Vol] 0.2 10*3/uL Normal 0.0-0.45 [facility] Comment on above: Performed By: #### F ER, CMP, CBC, FE and TIBC #### [facility] [address] [place] [address] [place] #### TOMA SERUM, SPE, KAPPA #### [facility] , Automated monocyte %Ordered By: Krzysztof Salazar on 09-20-2023 Monocytes/100 WBC (Bld) 7.9 % Normal . [facility] Comment on above: Performed By: #### F ER, CMP, CBC, FE and TIBC #### [place] [address] [place] #### TOMA SERUM, SPE, KAPPA #### [facility] , Automated neutrophil %Ordere d By: Krzysztof Salazar on 09-20-2023 Neutrophils/100 WBC (Bld) 64.3 % Normal . [facility] Comment on above: Performed By: #### F ER, CMP, CBC, FE and TIBC #### [address] #### TOMA SERUM, SPE, KAPPA #### [facility] , Bilirubin.total [Mass/volume ] in Serum or PlasmaOrdered By: Krzysztof Salazar on 09-20-2023 Bilirubin [Mass/Vol] 0.6 mg/dL Normal 0.3-1.0 [facility] Comment on above: Performed By: #### F ER, CMP, CBC, FE and TIBC #### [address] #### TOMA SERUM, SPE, KAPPA #### [facility] , Calcium [Mass/volume] in Ser um or PlasmaOrdered By: Krzysztof Salazar on 09-20-2023 Calcium [Mass/Vol] 9.7 mg/dL Normal 8.6-10.3 [facility] Comment on above: Performed By: #### F ER, CMP, CBC, FE and TIBC #### [place] [address] [place] #### TOMA SERUM, SPE, KAPPA #### [facility] , Carbon dioxide, total [Moles /volume] in Serum or PlasmaOrdered By: Krzysztof Salazar on 09-20-2023 CO2 [Moles/Vol] 32.4 mmol/L High 21.0-31.0 [facility] Comment on above: Performed By: #### F ER, CMP, CBC, FE and TIBC #### [place] [address] [place] #### TOMA SERUM, SPE, KAPPA #### [facility] , Chloride [Moles/volume] in S hugo or PlasmaOrdered By: Krzysztof Salazar on 09-20-2023 Chloride [Moles/Vol] 97 mmol/L Low 98-107 [facility] Comment on above: Performed By: #### F ER, CMP, CBC, FE and TIBC #### [facility] [address] [place] [address] [place] #### TOMA SERUM, SPE, KAPPA #### [facility] , Complete Blood Count Auto Di ffon 09-20-2023 Mean Corpuscular HGB Conc 32.7 g/dL Normal 32.0-35.0 [facility] Comment on above: Performed By: #### F ER, CMP, CBC, FE and TIBC #### [facility] [address] [place] [address] #### TOMA SERUM, SPE, KAPPA #### [facility] , NRBC% 0.1 /100{WBC} Normal 0-0.5 [facility] Comment on above: Performed By: #### F ER, CMP, CBC, FE and TIBC #### [facility] [address] [place] [address] [place] #### TOMA SERUM, SPE, KAPPA #### [facility] , Comprehensive Metabolic Pane gretel 09-20-2023 Albumin [Mass/Vol] 4.2 g/dL Normal 3.5-5.7 [facility] Comment on above: Performed By: #### F ER, CMP, CBC, FE and TIBC #### [facility] [address] [place] [address] [place] #### TOMA SERUM, SPE, KAPPA #### [facility] , Creatinine Clr Calc Pharmacy 143.32 Normal [facility] Comment on above: Performed By: #### F ER, CMP, CBC, FE and TIBC #### [facility] [address] [place] [address] [place] #### TOMA SERUM, SPE, KAPPA #### [facility] , GFR/1.73 sq M.predicted MDRD (S/P/Bld) [Vol rate/Area] mL/min/{1.73_m2} Normal [facility] Comment on above: Performed By: #### F ER, CMP, CBC, FE and TIBC #### [place] [address] [place] #### TOMA SERUM, SPE, KAPPA #### [facility] , Creatinine [Mass/volume] in Serum or PlasmaOrdered By: Krzysztof Salazar on 09-20-2023 Creatinine [Mass/Vol] 0.60 mg/dL Normal 0.60-1.20 [facility] Comment on above: Performed By: #### F ER, CMP, CBC, FE and TIBC #### [address] #### TOMA SERUM, SPE, KAPPA #### [facility] , Erythrocyte distribution wid th [Ratio] by Automated countOrdered By: Krzysztof Salazar on 09-20-2023 Erythrocyte distribution width (RBC) [Ratio] 16.7 % High 11.9-15.3 [facility] Comment on above: Performed By: #### F ER, CMP, CBC, FE and TIBC #### [place] [address] [place] #### TOMA SERUM, SPE, KAPPA #### [facility] , Erythrocytes [#/volume] in B lood by Automated countOrdered By: Krzysztof Salazar on 09-20-2023 RBC (Bld) [#/Vol] 4.86 10*6/uL Normal 3.60-5.00 [facility] Comment on above: Performed By: #### F ER, CMP, CBC, FE and TIBC #### [place] [address] [place] #### TOMA SERUM, SPE, KAPPA #### [facility] , Ferritin [Mass/volume] in Se rum or PlasmaOrdered By: Krzysztof Salazar on 09-20-2023 Ferritin [Mass/Vol] 92.7 ng/mL Normal 11.0-306.8 [facility] Comment on above: Result Comment: PERF ORMED BY: [place] [address] PATHOLOGIST INSIDE SALES DIRECTOR MELODY ELAM M.D. Performed By: #### F ER, CMP, CBC, FE and TIBC #### [address] #### TOMA SERUM, SPE, KAPPA #### [facility] , Free K+L LT Chains, Qn, Son 09-20-2023 Free Cowden Light Chains, S 30.9 mg/L High 3.3-19.4 [facility] Comment on above: Performed By: #### F ER, CMP, CBC, FE and TIBC #### [facility] [address] [place] [address] #### TOMA SERUM, SPE, KAPPA #### [facility] , Free Lambda Light Chains, S 26.4 mg/L High 5.7-26.3 [facility] Comment on above: Performed By: #### F ER, CMP, CBC, FE and TIBC #### [place] [address] [place] #### TOMA SERUM, SPE, KAPPA #### [facility] , Cowden/Lambda Ratio, S 1.17 Normal 0.26-1.65 [facility] Comment on above: Result Comment: Perf ormed at: - [facility] [address] [id number] Production Ski Repairer: Jeyson Duncan PhD, Phone: [phone] PERFORMED BY: [place] [address] PATHOLOGIST INSIDE SALES DIRECTOR MELODY ELAM M.D. Performed By: #### F ER, CMP, CBC, FE and TIBC #### [address] #### TOMA SERUM, SPE, KAPPA #### [facility] , Glucose [Mass/volume] in Ser um or PlasmaOrdered By: Krzysztof Salazar on 09-20-2023 Glucose [Mass/Vol] 123 mg/dL High 70-100 [facility] Comment on above: ADA recommended refe rence rangeRandom Glucose Reference Range is dependent on time and content of last meal. Glucose of more than 200 mg/dL in a nonstressed, ambulatory subject supports the diagnosis of Diabetes Mellitus. Result Comment: [place] om Glucose Reference Range is dependent on time and content of last meal. Glucose of more than 200 mg/dL in a nonstressed, ambulatory subject supports the diagnosis of Diabetes Mellitus. ADA recommended reference range Performed By: #### F ER, CMP, CBC, FE and TIBC #### [address] #### TOMA SERUM, SPE, KAPPA #### [facility] , Hematocrit [Volume Fraction] of Blood by Automated countOrdered By: Krzysztof Salazar on 09-20-2023 Hematocrit (Bld) [Volume fraction] 38.3 % Normal 34.0-46.4 [facility] Comment on above: Performed By: #### F ER, CMP, CBC, FE and TIBC #### [place] [address] [place] #### TOMA SERUM, SPE, KAPPA #### [facility] , Hemoglobin [Mass/volume] in BloodOrdered By: Krzysztof Salazar on 09-20-2023 Hemoglobin (Bld) [Mass/Vol] 12.5 g/dL Normal 11.8-15.4 [facility] Comment on above: Performed By: #### F ER, CMP, CBC, FE and TIBC #### [address] #### TOMA SERUM, SPE, KAPPA #### [facility] , IgA [Mass/volume] in Serum o r PlasmaOrdered By: Krzysztof Salazar on 09-20-2023 IgA [Mass/Vol] 409 mg/dL 87-352 [facility] IgG [Mass/volume] in Serum o r PlasmaOrdered By: Krzysztof Salazar on 09-20-2023 IgG [Mass/Vol] 1704 mg/dL [phone] [facility] IgM [Mass/volume] in Serum o r PlasmaOrdered By: Krzysztof Salazar on 09-20-2023 IgM [Mass/Vol] 122 mg/dL 26-217 [facility] Comment on above: Performed at: [facility] [address] [id number] Director: Jeyson Duncan PhD, Phone: [phone] Immunofixation,Serumon 09-19 Immunofixation, Serum Normal . [facility] Comment on above: Result Comment: No m onoclonality detected. Performed By: #### F ER, CMP, CBC, FE and TIBC #### [facility] [address] [place] [address] #### TOMA SERUM, SPE, KAPPA #### [facility] , Immunoglobulin A, Serum 409 mg/dL High 87-352 [facility] Comment on above: Performed By: #### F ER, CMP, CBC, FE and TIBC #### [facility] [address] [place] [address] [place] #### TOMA SERUM, SPE, KAPPA #### [facility] , Immunoglobulin G 1704 mg/dL High [phone] [facility] Comment on above: Performed By: #### F ER, CMP, CBC, FE and TIBC #### [facility] [address] [place] [address] [place] #### TOMA SERUM, SPE, KAPPA #### [facility] , Immunoglobulin M, Serum 122 mg/dL Normal -217 [facility] Comment on above: Result Comment: Perf ormed at: [facility] - [facility] [address] [place], [place] [id number] Production Ski Repairer: Jeyson Duncan PhD, Phone: [phone] Performed By: #### F ER, CMP, CBC, FE and TIBC #### [facility] [address] [place] [address] #### TOMA SERUM, SPE, KAPPA #### [facility] , Immunoglobulin light chains. kappa.free [Mass/volume] in SerumOrdered By: Krzysztof Salazar on 09-20-2023 Immunoglobulin light chains.kappa.free (S) [Mass/Vol] 30.9 mg/L 3.3-19.4 [facility] Immunoglobulin light chains. kappa.free/Immunoglobulin light chains.lambda.free [MassOrdered By: Krzysztof Salazar on 09-20-2023 Immunoglobulin light chains.kappa.free/Immuno globulin light chains.lambda.free (S) [Mass ratio] 1.17 0.26-1.65 [facility] Comment on above: Performed at: [address] [id number] Director: Jeyson Duncan PhD, Phone: [phone] Immunoglobulin light chains. lambda.free [Mass/volume] in Serum or PlasmaOrdered By: Krzysztof Salazar on 09-20-2023 Immunoglobulin light chains.lambda.free [Mass/Vol] 26.4 mg/L 5.7-26.3 [facility] Iron [Mass/volume] in Serum or PlasmaOrdered By: Krzysztof Salazar on 09-20-2023 Iron [Mass/Vol] 74 ug/dL Normal 50-212 [facility] Comment on above: Performed By: #### F ER, CMP, CBC, FE and TIBC #### [facility] [address] [place] [address] [place] #### TOMA SERUM, SPE, KAPPA #### [facility] , Iron and TIBC Profileon 08-24 % Iron Saturation 21.5 % Normal 20-50 [facility] Comment on above: Performed By: #### F ER, CMP, CBC, FE and TIBC #### [facility] [address] [place] [address] [place] #### TOMA SERUM, SPE, KAPPA #### [facility] , Total Iron Binding Capacity 344 ug/dL Normal 255-450 [facility] Comment on above: Performed By: #### F ER, CMP, CBC, FE and TIBC #### [facility] [address] [place] [address] [place] #### TOMA SERUM, SPE, KAPPA #### [facility] , Iron binding capacity [Mass/ volume] in Serum or PlasmaOrdered By: Krzysztof Salazar on 09-20-2023 Iron binding capacity [Mass/Vol] 344 ug/dL 255-450 [facility] Iron saturation [Mass Fracti on] in Serum or PlasmaOrdered By: Krzysztof Salazar on 09-20-2023 Iron saturation [Mass fraction] 21.5 % 20-50 [facility] Leukocytes [#/volume] correc silverio for nucleated erythrocytes in Blood by Automated counOrdered By: Krzysztof Salazar on 09-20-2023 WBC corrected for nucl RBC Auto (Bld) [#/Vol] 8.5 10*3/uL 3.8-11.6 [facility] Leukocytes [#/volume] in Blo od by Automated countOrdered By: Krzysztof Salazar on 09-20-2023 WBC (Bld) [#/Vol] 8.5 10*3/uL Normal 3.8-11.6 [facility] Comment on above: Performed By: #### F ER, CMP, CBC, FE and TIBC #### [facility] [address] [place] [address] [place] #### TOMA SERUM, SPE, KAPPA #### [facility] , Lymphocytes [#/volume] in Bl ood by Automated countOrdered By: Krzysztof Salazar on 09-20-2023 Lymphocytes (Bld) [#/Vol] 2.1 10*3/uL Normal 1.00-4.8 [facility] Comment on above: Performed By: #### F ER, CMP, CBC, FE and TIBC #### [place] [address] [place] #### TOMA SERUM, SPE, KAPPA #### [facility] , Lymphocytes/100 leukocytes i n Blood by Automated countOrdered By: Krzysztof Salazar on 09-20-2023 Lymphocytes/100 WBC (Bld) 24.7 % Normal . [facility] Comment on above: Performed By: #### F ER, CMP, CBC, FE and TIBC #### [place] [address] [place] #### TOMA SERUM, SPE, KAPPA #### [facility] , MCH [Entitic mass] by Automa silverio countOrdered By: Krzysztof Salazar on 09-20-2023 MCH (RBC) [Entitic mass] 25.8 pg Normal 24.7-34.3 [facility] Comment on above: Performed By: #### F ER, CMP, CBC, FE and TIBC #### [address] #### TOMA SERUM, SPE, KAPPA #### [facility] , MCHC Auto (RBC) [Mass/Vol]Or dered By: Krzysztof Salazar on 09-20-2023 MCHC (RBC) [Mass/Vol] 32.7 g/dL 32.0-35.0 [facility] MCV [Entitic volume] by Auto mated countOrdered By: Krzysztof Salazar on 09-20-2023 MCV (RBC) [Entitic vol] 78.7 fL Low 80-100 [facility] Comment on above: Performed By: #### F ER, CMP, CBC, FE and TIBC #### [place] [address] [place] #### TOMA SERUM, SPE, KAPPA #### [facility] , Neutrophils [#/volume] in Bl ood by Automated countOrdered By: Krzysztof Salazar on 09-20-2023 Neutrophils (Bld) [#/Vol] 5.5 10*3/uL Normal 1.8-7.7 [facility] Comment on above: Performed By: #### F ER, CMP, CBC, FE and TIBC #### [facility] [address] [place] [address] [place] #### TOMA SERUM, SPE, KAPPA #### [facility] , No Panel InformationOrdered By: Krzysztof Salazar on 09-20-2023 Estimated GFR (CKD-EPI) > 60.0 mL/Min [facility] Creatinine Clearance (Chem 143.32 [facility] Protein Electrophoresis M-Antwan Not observed g/dL Not Observed [facility] Protein Electrophoresis Note See comment . [facility] Comment on above: Protein electrophore sis scan will follow via computer,mail, or church supervisor delivery. Serum Immunofixation See comment . [facility] Comment on above: No monoclonality det ected. Nucleated erythrocytes [Pres ence] in Blood by Automated countOrdered By: Krzysztof Salazar on 09-20-2023 Nucleated RBC Auto Ql (Bld) 0.1 /100{WBC} 0-0.5 [facility] Platelet mean volume [Entiti c volume] in Blood by Automated countOrdered By: Krzysztof Salazar on 09-20-2023 Platelet mean volume (Bld) [Entitic vol] 8.8 fL Normal 6.3-10.7 [facility] Comment on above: Performed By: #### F ER, CMP, CBC, FE and TIBC #### [facility] [address] [place] [address] [place] #### TOMA SERUM, SPE, KAPPA #### [facility] , Platelets [#/volume] in Bloo d by Automated countOrdered By: Krzysztof Salazar on 09-20-2023 Platelets (Bld) [#/Vol] 271 10*3/uL Normal 150-450 [facility] Comment on above: Performed By: #### F ER, CMP, CBC, FE and TIBC #### [facility] [address] [place] [address] [place] #### TOMA SERUM, SPE, KAPPA #### [facility] , Potassium [Moles/volume] in Serum or PlasmaOrdered By: Krzysztof Salazar on 09-20-2023 Potassium [Moles/Vol] 4.4 mmol/L Normal 3.5-5.1 [facility] Comment on above: Performed By: #### F ER, CMP, CBC, FE and TIBC #### [place] [address] [place] #### TOMA SERUM, SPE, KAPPA #### [facility] , Protein Electrophoresis, Ser umon 09-20-2023 Xbusp-1-Hzsowhay 0.3 g/dL Normal 0.0-0.4 [facility] Comment on above: Performed By: #### F ER, CMP, CBC, FE and TIBC #### [address] #### TOMA SERUM, SPE, KAPPA #### [facility] , Wooka-9-Blwimlos 0.8 g/dL Normal 0.4-1.0 [facility] Comment on above: Performed By: #### F ER, CMP, CBC, FE and TIBC #### [address] #### TOMA SERUM, SPE, KAPPA #### [facility] , Beta Globulin 1.2 g/dL Normal 0.7-1.3 [facility] Comment on above: Performed By: #### F ER, CMP, CBC, FE and TIBC #### [place] [address] [place] #### TOMA SERUM, SPE, KAPPA #### [facility] , Gamma Globulin 1.8 g/dL Normal 0.4-1.8 [facility] Comment on above: Performed By: #### F ER, CMP, CBC, FE and TIBC #### [place] [address] [place] #### TOMA SERUM, SPE, KAPPA #### [facility] , M-Antwan Not Observed Normal Not Observed [facility] Comment on above: Performed By: #### F ER, CMP, CBC, FE and TIBC #### [place] [address] [place] #### TOMA SERUM, SPE, KAPPA #### [facility] , SPE-Note Normal . [facility] Comment on above: Result Comment: Prot ein electrophoresis scan will follow via computer, mail, or church supervisor delivery. Performed By: #### F ER, CMP, CBC, FE and TIBC #### [address] #### TOMA SERUM, SPE, KAPPA #### [facility] , Protein [Mass/volume] in Ser um or PlasmaOrdered By: Krzysztof Salazar on 09-20-2023 Protein [Mass/Vol] 7.7 g/dL Normal 6.4-8.9 [facility] Comment on above: Performed By: #### F ER, CMP, CBC, FE and TIBC #### [place] [address] [place] #### TOMA SERUM, SPE, KAPPA #### [facility] , Protein [Mass/Vol] 7.8 g/dL Normal 6.0-8.5 [facility] Comment on above: Performed By: #### F ER, CMP, CBC, FE and TIBC #### [place] [address] [place] #### TOMA SERUM, SPE, KAPPA #### [facility] , Serum globulin measurement ( mass/volume)Ordered By: Krzysztof Salazar on 09-20-2023 Globulin (S) [Mass/Vol] 4.0 g/dL High 2.2-3.9 [facility] Comment on above: Performed By: #### F ER, CMP, CBC, FE and TIBC #### [place] [address] [place] #### TOMA SERUM, SPE, KAPPA #### [facility] , Serum globulin measurement b y calculation (mass/volume)Ordered By: Krzysztof Salazar on 09-20-2023 Globulin (S) [Mass/Vol] 3.5 g/dL Normal [facility] Comment on above: Performed By: #### F ER, CMP, CBC, FE and TIBC #### [facility] [address] [place] [address] [place] #### TOMA SERUM, SPE, KAPPA #### [facility] , Serum or plasma albumin/glob ulin mass ratioOrdered By: Krzysztof Salazar on 09-20-2023 Albumin/Globulin [Mass ratio] 1.2 {ratio} Normal [facility] Comment on above: Performed By: #### F ER, CMP, CBC, FE and TIBC #### [facility] [address] [place] [address] [place] #### TOMA SERUM, SPE, KAPPA #### [facility] , Albumin/Globulin [Mass ratio] 1.0 {ratio} Normal 0.7-1.7 [facility] Comment on above: Performed By: #### F ER, CMP, CBC, FE and TIBC #### [facility] [address] [place] [address] [place] #### TOMA SERUM, SPE, KAPPA #### [facility] , Serum or plasma alpha 1 glob ulin measurement by electrophoresis (mass/volume)Ordered By: Krzysztof Salazar on 09-20-2023 Alpha 1 globulin Elph [Mass/Vol] 0.3 g/dL 0.0-0.4 [facility] Serum or plasma alpha 2 glob ulin measurement by electrophoresis (mass/volume)Ordered By: Krzysztof Salazar on 09-20-2023 Alpha 2 globulin Elph [Mass/Vol] 0.8 g/dL 0.4-1.0 [facility] Serum or plasma anion gap de terminationOrdered By: Krzysztof Salazar on 09-20-2023 Anion gap [Moles/Vol] 11.0 mmol/L Normal 6.0-15.0 [facility] Comment on above: Performed By: #### F ER, CMP, CBC, FE and TIBC #### [facility] [address] [place] [address] #### TOMA SERUM, SPE, KAPPA #### [facility] , Serum or plasma beta globuli n measurement by electrophoresis (mass/volume)Ordered By: Krzysztof Salazar on 09-20-2023 Beta globulin Elph [Mass/Vol] 1.2 g/dL 0.7-1.3 [facility] Serum or plasma gamma globul in measurement by electrophoresis (mass/volume)Ordered By: Krzysztof Salazar on 09-20-2023 Gamma globulin Elph [Mass/Vol] 1.8 g/dL 0.4-1.8 [facility] Sodium [Moles/volume] in Ser um or PlasmaOrdered By: Krzysztof Salazar on 09-20-2023 Sodium [Moles/Vol] 136 mmol/L Normal 136-145 [facility] Comment on above: Performed By: #### F ER, CMP, CBC, FE and TIBC #### [place] [address] [place] #### TOMA SERUM, SPE, KAPPA #### [facility] , Transferrin [Mass/volume] in Serum or PlasmaOrdered By: Krzysztof Salazar on 09-20-2023 Transferrin [Mass/Vol] 246 mg/dL Normal 203-362 [facility] Comment on above: Performed By: #### F ER, CMP, CBC, FE and TIBC #### [facility] [address] [place] [address] #### TOMA SERUM, SPE, KAPPA #### [facility] , Urea nitrogen [Mass/volume] in Serum or PlasmaOrdered By: Krzysztof Salazar on 09-20-2023 Urea nitrogen [Mass/Vol] 16 mg/dL Normal 7-25 [facility] Comment on above: Performed By: #### F ER, CMP, CBC, FE and TIBC #### [facility] [address] [place] [id number] [place] #### TOMA SERUM, SPE, KAPPA #### [facility] , US pelvic completeon 024 US pelvic complete [facility] [place] [address] [id number] Ultrasound Report Signed Patient: Geeta Shelton MR#: [id number] : 1970 Acct:[id number] Age/Sex: 53 / F ADM Date: 09/07/23 Loc: Room: Type: [facility] Attending Dr: Elizabeth Alvarado APRN, NP-C Ordering Provider: Elizabeth Alvarado APRN, CNP Date of Service: 09/07/23 US/US transvaginal: Abnormal vaginal bleeding ([id number]) US/US pelvic complete: Abnormal vaginal bleeding Copies [...] Davis Jr., D.O.09/07/2023 2:39 PM Dictation Location: [place] [address] Tech: Jessica Sinclairvolodymyr Transcribed By: SEJAL 09/07/23 3340 Dictated By: Jesus Davis Jr, DO 09/07/23 1437 Signed By: 09/07/23 1439 Normal [facility] Alanine aminotransferase [En zymatic activity/volume] in Serum or PlasmaOrdered By: Elizabeth Alvarado on 08-24-2023 ALT [Catalytic activity/Vol] 28 U/L Normal 7-52 [facility] Comment on above: Order Comment: Reaso n for Exam Type 2 diabetes mellitus without complication, without long- Performed By: #### F ER, CMP, CBC, FE and TIBC #### [facility] [address] [place] [address] #### TOMA SERUM, SPE, KAPPA #### [facility] , Albumin [Mass/volume] in Ser um or Plasma by Bromocresol green (BCG) dye binding methoOrdered By: Elizabeth Alvarado on 08-24-2023 Albumin BCG dye [Mass/Vol] 4.3 g/dL 3.5-5.7 [facility] Alkaline phosphatase [Enzyma tic activity/volume] in Serum or PlasmaOrdered By: Elizabeth Alvarado on 08-24-2023 ALP [Catalytic activity/Vol] 86 U/L Normal 34-104 [facility] Comment on above: Order Comment: Reaso n for Exam Type 2 diabetes mellitus without complication, without long- Performed By: #### F ER, CMP, CBC, FE and TIBC #### [facility] [address] [place] [address] [place] #### TOMA SERUM, SPE, KAPPA #### [facility] , Aspartate aminotransferase [ Enzymatic activity/volume] in Serum or PlasmaOrdered By: Elizabeth Alvarado on 08-24-2023 AST [Catalytic activity/Vol] 28 U/L Normal 13-39 [facility] Comment on above: Order Comment: Reaso n for Exam Type 2 diabetes mellitus without complication, without long- Performed By: #### F ER, CMP, CBC, FE and TIBC #### [facility] [address] [place] [address] [place] #### TOMA SERUM, SPE, KAPPA #### [facility] , Automated basophil %Ordered By: Elizabeth Alvarado on 08-24-2023 Basophils/100 WBC (Bld) 0.7 % Normal . [facility] Comment on above: Order Comment: Reaso n for Exam Type 2 diabetes mellitus without complication, without long- Performed By: #### T SH3 wRFLX, LIPID, CBC, CMP #### [facility] [address] Automated basophil countOrde red By: Elizabeth Alvarado on 08-24-2023 Basophils (Bld) [#/Vol] 0.1 10*3/uL Normal 0.0-0.2 [facility] Comment on above: Order Comment: Reaso n for Exam Type 2 diabetes mellitus without complication, without long- Result Comment: PERF ORMED BY: [place] [address] PATHOLOGIST [employer] DIRECTOR MELODY ELAM M.D. Performed By: #### T SH3 wRFLX, LIPID, CBC, CMP #### [address] Automated blood monocyte cou ntOrdered By: Elizabeth Alvarado on 08-24-2023 Monocytes (Bld) [#/Vol] 0.8 10*3/uL Normal 0.0-0.8 [facility] Comment on above: Order Comment: Reaso n for Exam Type 2 diabetes mellitus without complication, without long- Performed By: #### T SH3 wRFLX, LIPID, CBC, CMP #### [address] Automated eosinophil %Ordere d By: Elizabeth Alvarado on 08-24-2023 Eosinophils/100 WBC (Bld) 3.3 % Normal . [facility] Comment on above: Order Comment: Reaso n for Exam Type 2 diabetes mellitus without complication, without long- Performed By: #### T SH3 wRFLX, LIPID, CBC, CMP #### [address] Automated eosinophil countOr dered By: Elizabeth Alvarado on 08-24-2023 Eosinophils (Bld) [#/Vol] 0.3 10*3/uL Normal 0.0-0.45 [facility] Comment on above: Order Comment: Reaso n for Exam Type 2 diabetes mellitus without complication, without long- Performed By: #### T SH3 wRFLX, LIPID, CBC, CMP #### [facility] [address] Automated monocyte %Ordered By: Elizabeth Alvarado on 08-24-2023 Monocytes/100 WBC (Bld) 8.1 % Normal . [facility] Comment on above: Order Comment: Reaso n for Exam Type 2 diabetes mellitus without complication, without long- Performed By: #### T SH3 wRFLX, LIPID, CBC, CMP #### [facility] [address] Automated neutrophil %Ordere d By: Elizabeth Alvarado on 08-24-2023 Neutrophils/100 WBC (Bld) 62.4 % Normal . [facility] Comment on above: Order Comment: Reaso n for Exam Type 2 diabetes mellitus without complication, without long- Performed By: #### T SH3 wRFLX, LIPID, CBC, CMP #### [facility] [address] [place] [address] Bilirubin.total [Mass/volume ] in Serum or PlasmaOrdered By: Elizabeth Alvarado on 08-24-2023 Bilirubin [Mass/Vol] 0.4 mg/dL Normal 0.3-1.0 [facility] Comment on above: Order Comment: Reaso n for Exam Type 2 diabetes mellitus without complication, without long- Performed By: #### F ER, CMP, CBC, FE and TIBC #### [facility] [address] [place] [address] [place] #### TOMA SERUM, SPE, KAPPA #### [facility] , Calcium [Mass/volume] in Ser um or PlasmaOrdered By: Elizabeth Alvarado on 08-24-2023 Calcium [Mass/Vol] 9.4 mg/dL Normal 8.6-10.3 [facility] Comment on above: Order Comment: Reaso n for Exam Type 2 diabetes mellitus without complication, without long- Performed By: #### F ER, CMP, CBC, FE and TIBC #### [facility] [address] [place] [address] [place] #### TOMA SERUM, SPE, KAPPA #### [facility] , Carbon dioxide, total [Moles /volume] in Serum or PlasmaOrdered By: Elizabeth Alvarado on 08-24-2023 CO2 [Moles/Vol] 29.2 mmol/L Normal 21.0-31.0 [facility] Comment on above: Order Comment: Reaso n for Exam Type 2 diabetes mellitus without complication, without long- Performed By: #### F ER, CMP, CBC, FE and TIBC #### [facility] [address] [place] [address] #### TOMA SERUM, SPE, KAPPA #### [facility] , Chloride [Moles/volume] in S hugo or PlasmaOrdered By: Elizabeth Alvarado on 08-24-2023 Chloride [Moles/Vol] 96 mmol/L Low 98-107 [facility] Comment on above: Order Comment: Reaso n for Exam Type 2 diabetes mellitus without complication, without long- Performed By: #### F ER, CMP, CBC, FE and TIBC #### [facility] [address] [place] [address] #### TOMA SERUM, SPE, KAPPA #### [facility] , Cholesterol [Mass/volume] in Serum or PlasmaOrdered By: Elizabeth Alvarado on 08-24-2023 Cholesterol [Mass/Vol] 160 mg/dL Normal 140-200 [facility] Comment on above: Chol less than 200 [...] ER, CMP, CBC, FE and TIBC #### [facility] [address] [place] [address] #### TOMA SERUM, SPE, KAPPA #### [facility] , Cholesterol in LDL Calc [Mas s/Vol]Ordered By: Elizabeth Alvarado on 08-24-2023 Cholesterol in LDL [Mass/Vol] 78 mg/dL 0-100 [facility] Comment on above: LDL ATP III CLASSIFI CATIONLDL less than 100 mg/dL OptimalLDL 100-129 mg/dL Near or above optimalLDL 130-159 mg/dL Borderline highLDL 160-189 mg/dL HighLDL greater than 189 mg/dL Very high Cholesterol in VLDL Calc [Ma ss/Vol]Ordered By: Elizabeth Alvarado on 08-24-2023 Cholesterol in VLDL [Mass/Vol] 22 mg/dL [facility] Complete Blood Count Auto Di ffon 08-24-2023 Mean Corpuscular HGB Conc 32.5 g/dL Normal 32.0-35.0 [facility] Comment on above: Order Comment: Reaso n for Exam Type 2 diabetes mellitus without complication, without long- Performed By: #### T SH3 wRFLX, LIPID, CBC, CMP #### [address] NRBC% 0.2 /100{WBC} Normal 0-0.5 [facility] Comment on above: Order Comment: Reaso n for Exam Type 2 diabetes mellitus without complication, without long- Performed By: #### T SH3 wRFLX, LIPID, CBC, CMP #### [address] Comprehensive Metabolic Pane gretel 08-24-2023 Albumin [Mass/Vol] 4.3 g/dL Normal 3.5-5.7 [facility] Comment on above: Order Comment: Reaso n for Exam Type 2 diabetes mellitus without complication, without long- Performed By: #### F ER, CMP, CBC, FE and TIBC #### [address] #### TOMA SERUM, SPE, KAPPA #### [facility] , GFR/1.73 sq M.predicted MDRD (S/P/Bld) [Vol rate/Area] mL/min/{1.73_m2} Normal [facility] Comment on above: Order Comment: Reaso n for Exam Type 2 diabetes mellitus without complication, without long- Performed By: #### F ER, CMP, CBC, FE and TIBC #### [facility] [address] [place] [address] #### TOMA SERUM, SPE, KAPPA #### [facility] , Creatinine [Mass/volume] in Serum or PlasmaOrdered By: Elizabeth Alvarado on 08-24-2023 Creatinine [Mass/Vol] 0.65 mg/dL Normal 0.60-1.20 [facility] Comment on above: Order Comment: Reaso n for Exam Type 2 diabetes mellitus without complication, without long- Performed By: #### F ER, CMP, CBC, FE and TIBC #### [facility] [address] [place] [address] #### TOMA SERUM, SPE, KAPPA #### [facility] , Creatinine [Mass/volume] in UrineOrdered By: Elizabeth Alvarado on 08-24-2023 Creatinine (U) [Mass/Vol] 76.0 mg/dL [facility] Comment on above: No reference range e stablished Erythrocyte distribution wid th [Ratio] by Automated countOrdered By: Elizabeth Alvarado on 08-24-2023 Erythrocyte distribution width (RBC) [Ratio] 15.8 % High 11.9-15.3 [facility] Comment on above: Order Comment: Reaso n for Exam Type 2 diabetes mellitus without complication, without long- Performed By: #### T SH3 wRFLX, LIPID, CBC, CMP #### [facility] [address] [place] [address] Erythrocytes [#/volume] in B lood by Automated countOrdered By: Elizabeth Alvarado on 08-24-2023 RBC (Bld) [#/Vol] 5.06 10*6/uL High 3.60-5.00 [facility] Comment on above: Order Comment: Reaso n for Exam Type 2 diabetes mellitus without complication, without long- Performed By: #### T SH3 wRFLX, LIPID, CBC, CMP #### [facility] [address] Glucose [Mass/volume] in Ser um or PlasmaOrdered By: Elizabeth Alvarado on 08-24-2023 Glucose [Mass/Vol] 92 mg/dL Normal 70-100 [facility] Comment on above: ADA recommended refe rence rangeRandom Glucose Reference Range is dependent on time and content of last meal. Glucose of more than 200 mg/dL in a nonstressed, ambulatory subject supports the diagnosis of Diabetes Mellitus. Order Comment: Reaso n for Exam Type 2 diabetes mellitus without complication, without long- Result Comment: [place] om Glucose Reference Range is dependent on time and content of last meal. Glucose of more than 200 mg/dL in a nonstressed, ambulatory subject supports the diagnosis of Diabetes Mellitus. ADA recommended reference range Performed By: #### F ER, CMP, CBC, FE and TIBC #### [facility] [address] [place] [address] #### TOMA SERUM, SPE, KAPPA #### [facility] , Hematocrit [Volume Fraction] of Blood by Automated countOrdered By: Elizabeth Alvarado on 08-24-2023 Hematocrit (Bld) [Volume fraction] 40.6 % Normal 34.0-46.4 [facility] Comment on above: Order Comment: Reaso n for Exam Type 2 diabetes mellitus without complication, without long- Performed By: #### T SH3 wRFLX, LIPID, CBC, CMP #### [facility] [address] Hemoglobin [Mass/volume] in BloodOrdered By: Elizabeth Alvarado on 08-24-2023 Hemoglobin (Bld) [Mass/Vol] 13.2 g/dL Normal 11.8-15.4 [facility] Comment on above: Order Comment: Reaso n for Exam Type 2 diabetes mellitus without complication, without long- Performed By: #### T SH3 wRFLX, LIPID, CBC, CMP #### [facility] [address] Leukocytes [#/volume] correc silverio for nucleated erythrocytes in Blood by Automated counOrdered By: Elizabeth Alvarado on 08-24-2023 WBC corrected for nucl RBC Auto (Bld) [#/Vol] 10.2 10*3/uL 3.8-11.6 [facility] Leukocytes [#/volume] in Blo od by Automated countOrdered By: Elizabeth Alvarado on 08-24-2023 WBC (Bld) [#/Vol] 10.2 10*3/uL Normal 3.8-11.6 [facility] Comment on above: Order Comment: Reaso n for Exam Type 2 diabetes mellitus without complication, without long- Performed By: #### T SH3 wRFLX, LIPID, CBC, CMP #### [facility] [address] [place] [address] Lipid Panelon 08-24-2023 LDL Cholesterol,Calculated 78 mg/dL Normal 0-100 [facility] Comment on above: Order Comment: [...] ER, CMP, CBC, FE and TIBC #### [facility] [address] [place] [address] #### TOAM SERUM, SPE, KAPPA #### [facility] , Triglyceride w/Reflex 112 mg/dL Normal 0-149 [facility] Comment on above: Order Comment: [...] ER, CMP, CBC, FE and TIBC #### [address] #### TOMA SERUM, SPE, KAPPA #### [facility] , VLDL CHOLESTEROL 22 mg/dL Normal [facility] Comment on above: Order Comment: Reaso n for Exam Type 2 diabetes mellitus without complication, without long- Performed By: #### F ER, CMP, CBC, FE and TIBC #### [address] #### TOMA SERUM, SPE, KAPPA #### [facility] , Lymphocytes [#/volume] in Bl ood by Automated countOrdered By: Elizabeth Alvarado on 08-24-2023 Lymphocytes (Bld) [#/Vol] 2.6 10*3/uL Normal 1.00-4.8 [facility] Comment on above: Order Comment: Reaso n for Exam Type 2 diabetes mellitus without complication, without long- Performed By: #### T SH3 wRFLX, LIPID, CBC, CMP #### [address] Lymphocytes/100 leukocytes i n Blood by Automated countOrdered By: Elizabeth Alvarado on 08-24-2023 Lymphocytes/100 WBC (Bld) 25.5 % Normal . [facility] Comment on above: Order Comment: Reaso n for Exam Type 2 diabetes mellitus without complication, without long- Performed By: #### T SH3 wRFLX, LIPID, CBC, CMP #### [address] MCH [Entitic mass] by Automa silverio countOrdered By: Elizabeth Alvarado on 08-24-2023 MCH (RBC) [Entitic mass] 26.1 pg Normal 24.7-34.3 [facility] Comment on above: Order Comment: Reaso n for Exam Type 2 diabetes mellitus without complication, without long- Performed By: #### T SH3 wRFLX, LIPID, CBC, CMP #### [address] MCHC Auto (RBC) [Mass/Vol]Or dered By: Elizabeth Alvarado on 08-24-2023 MCHC (RBC) [Mass/Vol] 32.5 g/dL 32.0-35.0 [facility] MCV [Entitic volume] by Auto mated countOrdered By: Elizabeth Alvarado on 08-24-2023 MCV (RBC) [Entitic vol] 80.3 fL Normal 80-100 [facility] Comment on above: Order Comment: Reaso n for Exam Type 2 diabetes mellitus without complication, without long- Performed By: #### T SH3 wRFLX, LIPID, CBC, CMP #### [address] MicroAlb Creat Ratio,Uon Creatinine, Urine (Random) 76.0 mg/dL Normal [facility] Comment on above: Order Comment: Reaso n for Exam Type 2 diabetes mellitus without complication, without long- Result Comment: No r eference range established Performed By: #### F ER, CMP, CBC, FE and TIBC #### [address] #### TOMA SERUM, SPE, KAPPA #### [facility] , Microalbumin/Creatinine Ratio Not performed Normal 0.0-30.0 [facility] Comment on above: Order Comment: Reaso n for Exam Type 2 diabetes mellitus without complication, without long- Result Comment: PERF ORMED BY: [place] [address] PATHOLOGIST [employer] DIRECTOR MELODY ELAM M.D. Performed By: #### F ER, CMP, CBC, FE and TIBC #### [address] #### TOMA SERUM, SPE, KAPPA #### [facility] , Microalbumin [Mass/volume] i n UrineOrdered By: Elizabeth Alvarado on 08-24-2023 Albumin DL <= 20 mg/L (U) [Mass/Vol] mg/dL High 0.0-1.8 [facility] Comment on above: Order Comment: Reaso n for Exam Type 2 diabetes mellitus without complication, without long- Performed By: #### F ER, CMP, CBC, FE and TIBC #### [facility] [address] #### TOMA SERUM, SPE, KAPPA #### [facility] , Neutrophils [#/volume] in Bl ood by Automated countOrdered By: Elizabeth Alvarado on 08-24-2023 Neutrophils (Bld) [#/Vol] 6.4 10*3/uL Normal 1.8-7.7 [facility] Comment on above: Order Comment: Reaso n for Exam Type 2 diabetes mellitus without complication, without long- Performed By: #### T SH3 wRFLX, LIPID, CBC, CMP #### [facility] [address] [place] [address] No Panel InformationOrdered By: Elizabeth Alvarado on 08-24-2023 Estimated GFR (CKD-EPI) > 60.0 mL/Min [facility] Creatinine Clearance (Chem N/A [facility] Nucleated erythrocytes [Pres ence] in Blood by Automated countOrdered By: Elizabeth Alvarado on 08-24-2023 Nucleated RBC Auto Ql (Bld) 0.2 /100{WBC} 0-0.5 [facility] Platelet mean volume [Entiti c volume] in Blood by Automated countOrdered By: Elizabeth Alvarado on 08-24-2023 Platelet mean volume (Bld) [Entitic vol] 9.8 fL Normal 6.3-10.7 [facility] Comment on above: Order Comment: Reaso n for Exam Type 2 diabetes mellitus without complication, without long- Performed By: #### T SH3 wRFLX, LIPID, CBC, CMP #### [facility] [address] [place] [address] Platelets [#/volume] in Bloo d by Automated countOrdered By: Elizabeth Alvarado on 08-24-2023 Platelets (Bld) [#/Vol] 283 10*3/uL Normal 150-450 [facility] Comment on above: Order Comment: Reaso n for Exam Type 2 diabetes mellitus without complication, without long- Performed By: #### T SH3 wRFLX, LIPID, CBC, CMP #### [facility] [address] [place] [address] Potassium [Moles/volume] in Serum or PlasmaOrdered By: Elizabeth Alvarado on 08-24-2023 Potassium [Moles/Vol] 4.3 mmol/L Normal 3.5-5.1 [facility] Comment on above: Order Comment: Reaso n for Exam Type 2 diabetes mellitus without complication, without long- Performed By: #### F ER, CMP, CBC, FE and TIBC #### [facility] [address] [place] [address] #### TOMA SERUM, SPE, KAPPA #### [facility] , Protein [Mass/volume] in Ser um or PlasmaOrdered By: Elizabeth Alvarado on 08-24-2023 Protein [Mass/Vol] 7.7 g/dL Normal 6.4-8.9 [facility] Comment on above: Order Comment: Reaso n for Exam Type 2 diabetes mellitus without complication, without long- Performed By: #### F ER, CMP, CBC, FE and TIBC #### [facility] [address] [place] [address] #### TOMA SERUM, SPE, KAPPA #### [facility] , Serum globulin measurement b y calculation (mass/volume)Ordered By: Elizabeth Alvarado on 08-24-2023 Globulin (S) [Mass/Vol] 3.4 g/dL Normal [facility] Comment on above: Order Comment: Reaso n for Exam Type 2 diabetes mellitus without complication, without long- Performed By: #### F ER, CMP, CBC, FE and TIBC #### [facility] [address] [place] [address] #### TOMA SERUM, SPE, KAPPA #### [facility] , Serum or plasma albumin/glob ulin mass ratioOrdered By: Elizabeth Alvarado on 08-24-2023 Albumin/Globulin [Mass ratio] 1.3 {ratio} Normal [facility] Comment on above: Order Comment: Reaso n for Exam Type 2 diabetes mellitus without complication, without long- Performed By: #### F ER, CMP, CBC, FE and TIBC #### [facility] [address] [place] [address] [place] #### TOMA SERUM, SPE, KAPPA #### [facility] , Serum or plasma anion gap de terminationOrdered By: Elizabeth Alvarado on 08-24-2023 Anion gap [Moles/Vol] 18.1 mmol/L High 6.0-15.0 [facility] Comment on above: Order Comment: Reaso n for Exam Type 2 diabetes mellitus without complication, without long- Performed By: #### F ER, CMP, CBC, FE and TIBC #### [facility] [address] [place] [address] [place] #### TOMA SERUM, SPE, KAPPA #### [facility] , Serum or plasma high density lipoprotein (HDL) cholesterol measurementOrdered By: Elizabeth Alvarado on 08-24-2023 Cholesterol in HDL [Mass/Vol] 60 mg/dL Normal 23- [facility] Comment on above: HDL CHOL ATP-III CLA [...] ER, CMP, CBC, FE and TIBC #### [facility] [address] [place] [address] [place] #### TOMA SERUM, SPE, KAPPA #### [facility] , Serum or plasma total choles terol/high density lipoprotein (HDL) cholesterol mass ratOrdered By: Elizabeth Alvarado on 08-24-2023 Cholesterol.total/Choles terol in HDL [Mass ratio] 2.7 {ratio} Normal <5.0 [facility] Comment on above: Order Comment: Reaso n for Exam Type 2 diabetes mellitus without complication, without long- Performed By: #### F ER, CMP, CBC, FE and TIBC #### [address] #### TOMA SERUM, SPE, KAPPA #### [facility] , Sodium [Moles/volume] in Ser um or PlasmaOrdered By: Elizabeth Alvarado on 08-24-2023 Sodium [Moles/Vol] 139 mmol/L Normal 136-145 [facility] Comment on above: Order Comment: Reaso n for Exam Type 2 diabetes mellitus without complication, without long- Performed By: #### F ER, CMP, CBC, FE and TIBC #### [address] #### TOMA SERUM, SPE, KAPPA #### [facility] , Thyroid Stim Hormone w/Rflxo n 08-24-2023 Thyroid Stim Hormone w/Rflx 2.40 u[iU]/mL Normal 0.45-5.33 [facility] Comment on above: Order Comment: Reaso n for Exam Type 2 diabetes mellitus without complication, without long- Result Comment: PERF ORMED BY: [place] [address] PATHOLOGIST INSIDE SALES DIRECTOR MELODY ELAM M.D. Performed By: #### F ER, CMP, CBC, FE and TIBC #### [address] #### TOMA SERUM, SPE, KAPPA #### [facility] , Thyrotropin [Units/volume] i n Serum or PlasmaOrdered By: Elizabeth Alvarado on 08-24-2023 TSH Qn 2.40 m[IU]/L 0.45-5.33 [facility] Triglyceride [Mass/volume] i n Serum or PlasmaOrdered By: Elizabeth Alvarado on 08-24-2023 Triglyceride [Mass/Vol] 112 mg/dL 0-149 [facility] Comment on above: TRIG ATP III CLASSIF ICATIONTRIG less than 150 mg/dL NormalTRIG 150-199 mg/dL Borderline highTRIG 200-500 mg/dL High TRIG greater than 500 mg/dL Very highStandard traceable to the Center for Disease Conrtrol and Prevention (CDC) test method. Urea nitrogen [Mass/volume] in Serum or PlasmaOrdered By: Elizabeth Alvarado on 08-24-2023 Urea nitrogen [Mass/Vol] 17 mg/dL Normal 7-25 [facility] Comment on above: Order Comment: Reaso n for Exam Type 2 diabetes mellitus without complication, without long- Performed By: #### F ER, CMP, CBC, FE and TIBC #### [facility] [address] #### TOMA SERUM, SPE, KAPPA #### [facility] , Urine microalbumin/creatinin e mass ratioOrdered By: Elizabeth Alvarado on 08-24-2023 Albumin/Creatinine DL <= 20 mg/L (U) [Mass ratio] TNP [facility] Comment on above: Test not performed MM screening mammo BI w/CADo n 05-10-2023 MM screening mammo BI w/CAD [facility] [address] [place] [address] [place] [address] Mammography Report Signed Patient: Geeta Shelton MR#: [id number] : 1970 Acct:[id number] Age/Sex: 53 / F ADM Date: 05/10/23 Loc: [place] Room: Type: [facility] Attending Dr: Elizabeth Alvaardo APRN, RADON INSPECTOR-C Copies to: Elizabeth Alvarado APRN, CNP Ordering [...] Mary Colon M.D.05/10/2023 10:10 AM Dictation Location: [facility] Transcribed By: [facility] 05/10/23 1010 Dictated By: Mary Colon MD 05/10/23 1007 Signed By: 05/10/23 1010 Normal [facility] Established Visit (Orthopaed ic Surgery)on [...] grammatical areas may persist related to the [employer] software Merrill Alejandro PA-C . Active Problems [...] Dec 29 2022 1:38PM EST (Author) Normal [place] Established Visit (Orthopaed ic Surgery)on 09-22-2022 Established Visit (Orthopaedic Surgery) Diagnoses/Problems Assessed Status post total knee replacement (V43.65) (Z96.659) Orders Status post total knee replacement Xray Knee 3 View; Status:Complete; Done: [id number] 01:48PM Laterality : Right Radiologist to Determine [...] grammatical areas may persist related to the Offerboard software Acosta Schafer MD Senior Attending Physician [facility] . Active Problems Problems Acute pain [...] 1 tablet daily Results/Data Xray Knee 3 [id number] 01:48PMAcosta Schafer Test NameResultFlagReference Xray Knee 3 View(Report) FINAL REPORT Interpreted by: ACOSTA SCHAFER BURTON, MD 09/22/22 14:13 Patient Name: GEETA SHELTON STUDY: KNEE; 3 VIEWS; Right; 09/22/2022 1:48 pm INDICATION: pain Z96.659: Status post total knee replacement. ACCESSION NUMBER(S): [id number] ORDERING CLINICIAN: ACOSTA SCHAFER FINDINGS: Right knee [...] Status post total knee replacement. ACCESSION NUMBER(S): [id number] ORDERING CLINICIAN: ACOSTA SCHAFER FINDINGS: Right knee three views. Status post revision total knee replacement components in good position no signs of fracture dislocation or other bony abnormalities Electronically signed by: ACOSTA SCHAFER MD Normal [facility] Radiologyon 09-22-2022 XR Knee 3 Views Normal -[facility] Work Phone: Alanine aminotransferase [En zymatic activity/volume] in Serum or PlasmaOrdered By: Zoey Ramirez on 08-17-2022 ALT [Catalytic activity/Vol] 45 U/L 7-52 [facility] Albumin [Mass/volume] in Ser um or PlasmaOrdered By: Zoey Ramirez on 08-17-2022 Albumin [Mass/Vol] 3.7 g/dL 2.9-4.4 [facility] Albumin [Mass/volume] in Ser um or Plasma by Bromocresol green (BCG) dye binding methoOrdered By: Zoey Ramirez on 08-17-2022 Albumin BCG dye [Mass/Vol] 4.1 g/dL 3.5-5.7 [facility] Albumin/Protein.total in 24 hour Urine by ElectrophoresisOrdered By: Zoey Ramirez on 08-17-2022 Albumin Elph (24H U) [Mass fraction] 59.9 % . [facility] Alkaline phosphatase [Enzyma tic activity/volume] in Serum or PlasmaOrdered By: Zoey Ramirez on 08-17-2022 ALP [Catalytic activity/Vol] 90 U/L 34-104 [facility] Aspartate aminotransferase [ Enzymatic activity/volume] in Serum or PlasmaOrdered By: Zoey Ramirez on 08-17-2022 AST [Catalytic activity/Vol] 40 U/L 13-39 [facility] Basophils Auto (Bld) [#/Vol] Ordered By: Zoey Ramirez on 08-17-2022 Basophils (Bld) [#/Vol] 0.1 10*3/uL 0.0-0.2 [facility] Basophils/100 WBC Auto (Bld) Ordered By: Zoey Ramirez on 08-17-2022 Basophils/100 WBC (Bld) 0.9 % . [facility] Bilirubin.total [Mass/volume ] in Serum or PlasmaOrdered By: Zoey Ramirez on 08-17-2022 Bilirubin [Mass/Vol] 0.4 mg/dL 0.3-1.0 [facility] Calcium [Mass/volume] in Ser um or PlasmaOrdered By: oZey Ramirez on 08-17-2022 Calcium [Mass/Vol] 9.1 mg/dL 8.6-10.3 [facility] Carbon dioxide, total [Moles /volume] in Serum or PlasmaOrdered By: Zoey Ramirez on 08-17-2022 CO2 [Moles/Vol] 27.9 mmol/L 21.0-31.0 [facility] Chloride [Moles/volume] in S hugo or PlasmaOrdered By: Zoey Ramirez on 08-17-2022 Chloride [Moles/Vol] 100 mmol/L 98-107 [facility] Creatinine [Mass/volume] in Serum or PlasmaOrdered By: Zoey Ramirez on 08-17-2022 Creatinine [Mass/Vol] 0.71 mg/dL 0.60-1.20 [facility] Eosinophils Auto (Bld) [#/Vo l]Ordered By: Zoey Ramirez on 08-17-2022 Eosinophils (Bld) [#/Vol] 0.3 10*3/uL 0.0-0.45 [facility] Eosinophils/100 WBC Auto (Bl d)Ordered By: Zoey Ramirez on 08-17-2022 Eosinophils/100 WBC (Bld) 3.1 % . [facility] Erythrocyte distribution wid th Auto (RBC) [Ratio]Ordered By: Zoey Ramirez on 08-17-2022 Erythrocyte distribution width (RBC) [Ratio] 16.5 % 11.9-15.3 [facility] Ferritin [Mass/volume] in Se rum or PlasmaOrdered By: Zoey Ramirez on 08-17-2022 Ferritin [Mass/Vol] 85.3 ng/mL 11.0-306.8 [facility] Folate [Mass/volume] in Seru m or PlasmaOrdered By: Zoey Ramirez on 08-17-2022 Folate [Mass/Vol] 15.1 ng/mL >5.9 [facility] Comment on above: Folate reference ran ge: >5.9 ng/mlThe WHO technical consultation on folate and vitamin [id number] has determined that folate concentrations lessthan 4 ng/ml are considered deficient. Gamma globulin/Protein.total in 24 hour Urine by ElectrophoresisOrdered By: Zoey Ramirez on 08-17-2022 Gamma globulin Elph (24H U) [Mass fraction] 15.3 % . [facility] Globulin Calc (S) [Mass/Vol] Ordered By: Zoey Ramirez on 08-17-2022 Globulin (S) [Mass/Vol] 4.0 g/dL [facility] Glucose [Mass/volume] in Ser um or PlasmaOrdered By: Zoey Ramirez on 08-17-2022 Glucose [Mass/Vol] 142 mg/dL 70-100 [facility] Comment on above: ADA recommended refe rence rangeRandom Glucose Reference Range is dependent on time and content of last meal. Glucose of more than 200 mg/dL in a nonstressed, ambulatory subject supports the diagnosis of Diabetes Mellitus. Hematocrit Auto (Bld) [Volum e fraction]Ordered By: Zoey Ramirez on 08-17-2022 Hematocrit (Bld) [Volume fraction] 41.3 % 34.0-46.4 [facility] Hemoglobin [Mass/volume] in BloodOrdered By: Zoey Ramirez 08-17-2022 Hemoglobin (Bld) [Mass/Vol] 13.2 g/dL 11.8-15.4 [facility] IgA [Mass/volume] in Serum o r PlasmaOrdered By: Zoey Ramirez on 08-17-2022 IgA [Mass/Vol] 498 mg/dL 87-352 [facility] IgG [Mass/volume] in Serum o r PlasmaOrdered By: Zoey Ramirez on 08-17-2022 IgG [Mass/Vol] 1834 mg/dL 586-1602 [facility] IgM [Mass/volume] in Serum o r PlasmaOrdered By: Zoey Ramirez on 08-17-2022 IgM [Mass/Vol] 124 mg/dL 26-217 [facility] Comment on above: Performed at: [facility] [address] [id number] Director: Jeyson Duncan PhD, Phone: [phone] Immunofixation for UrineOrde red By: Zoey Ramirez on 08-17-2022 Interpretation Immunofixation (U) [Interp] See comment . [facility] Comment on above: No monoclonality det ected.Performed at: [facility] [address] [id number] Director: Jeyson Duncan PhD, Phone: [phone] Immunoglobulin light chains. kappa.free [Mass/volume] in SerumOrdered By: Zoey Ramirez on 08-17-2022 Immunoglobulin light chains.kappa.free (S) [Mass/Vol] 47.1 mg/L 3.3-19.4 [facility] Immunoglobulin light chains. kappa.free/Immunoglobulin light chains.lambda.free [MassOrdered By: Zoey Ramirez on 08-17-2022 Immunoglobulin light chains.kappa.free/Immuno globulin light chains.lambda.free (S) [Mass ratio] 1.65 0.26-1.65 [facility] Comment on above: Performed at: [facility] [address] [place] [id number] Director: Jeyson Duncan PhD, Phone: [phone] Immunoglobulin light chains. lambda.free [Mass/volume] in Serum or PlasmaOrdered By: Zoey Ramirez on 08-17-2022 Immunoglobulin light chains.lambda.free [Mass/Vol] 28.6 mg/L 5.7-26.3 [facility] Iron [Mass/volume] in Serum or PlasmaOrdered By: Zoey Ramirez on 08-17-2022 Iron [Mass/Vol] 41 ug/dL 50-212 [facility] Iron binding capacity [Mass/ volume] in Serum or PlasmaOrdered By: Zoey Ramirez on 08-17-2022 Iron binding capacity [Mass/Vol] 344 ug/dL 255-450 [facility] Iron saturation [Mass Fracti on] in Serum or PlasmaOrdered By: Zoey Ramirez on 08-17-2022 Iron saturation [Mass fraction] 11.9 % 20-50 [facility] Leukocytes [#/volume] correc silverio for nucleated erythrocytes in Blood by Automated counOrdered By: Zoey Ramirez on 08-17-2022 WBC corrected for nucl RBC Auto (Bld) [#/Vol] 9.9 10*3/uL 3.8-11.6 [facility] Lymphocytes Auto (Bld) [#/Vo l]Ordered By: Zoey Ramirez on 08-17-2022 Lymphocytes (Bld) [#/Vol] 2.8 10*3/uL 1.00-4.8 [facility] Lymphocytes/100 WBC Auto (Bl d)Ordered By: Zoey Ramirez on 08-17-2022 Lymphocytes/100 WBC (Bld) 28.5 % . [facility] MCH Auto (RBC) [Entitic mass ]Ordered By: Zoey Ramirez on 08-17-2022 MCH (RBC) [Entitic mass] 24.9 pg 24.7-34.3 [facility] MCHC Auto (RBC) [Mass/Vol]Or dered By: Zoey Ramirez on 08-17-2022 MCHC (RBC) [Mass/Vol] 32.0 g/dL 32.0-35.0 [facility] MCV Auto (RBC) [Entitic vol] Ordered By: Zoey Ramirez on 04-25-2023 MCV (RBC) [Entitic vol] 77.8 fL 80-100 [facility] Monocytes Auto (Bld) [#/Vol] Ordered By: Zoey Ramirez on 08-17-2022 Monocytes (Bld) [#/Vol] 0.6 10*3/uL 0.0-0.8 [facility] Monocytes/100 WBC Auto (Bld) Ordered By: Zoey Ramirez on 08-17-2022 Monocytes/100 WBC (Bld) 5.9 % . [facility] Neutrophils Auto (Bld) [#/Vo l]Ordered By: Zoey Ramirez on 08-17-2022 Neutrophils (Bld) [#/Vol] 6.1 10*3/uL 1.8-7.7 [facility] Neutrophils/100 WBC Auto (Bl d)Ordered By: Zoey Ramirez on 08-17-2022 Neutrophils/100 WBC (Bld) 61.6 % . [facility] No Panel InformationOrdered By: Zoey Ramirez on 08-17-2022 Estimated GFR (CKD-EPI) > 60.0 mL/Min [facility] Creatinine Clearance (Chem 122.85 [facility] Protein Electrophoresis M-Antwan Not observed g/dL Not Observed [facility] Protein Electrophoresis Note See comment . [facility] Comment on above: Protein electrophore sis scan will follow via computer,mail, or church supervisor delivery.Performed at: [facility] [place] [address] [id number] Director: Jeyson Duncan PhD, Phone: [phone] Serum Immunofixation Comment: . [facility] Comment on above: Presence of monoclon al protein is unclear at this time. Suggestrepeat in 3 to 6 months if clinically indicated. Urine Random Prot Electrophor Note See comment . [facility] Comment on above: Protein electrophore sis scan will follow via computer,mail, or church supervisor delivery.Performed at: [facility] [place], [place] [id number] Director: Jeyson Duncan PhD, Phone: [phone] Nucleated erythrocytes [Pres ence] in Blood by Automated countOrdered By: Zoey Ramirez on 08-17-2022 Nucleated RBC Auto Ql (Bld) 0.1 /100{WBC} 0-0.5 [facility] Platelet mean volume Auto (B ld) [Entitic vol]Ordered By: Zoey Ramirez on 08-17-2022 Platelet mean volume (Bld) [Entitic vol] 8.5 fL 6.3-10.7 [facility] Platelets Auto (Bld) [#/Vol] Ordered By: Zoey Ramirez on 08-17-2022 Platelets (Bld) [#/Vol] 345 10*3/uL 150-450 [facility] Potassium [Moles/volume] in Serum or PlasmaOrdered By: Zoey Ramirez on 08-17-2022 Potassium [Moles/Vol] 4.7 mmol/L 3.5-5.1 [facility] Protein [Mass/volume] in Ser um or PlasmaOrdered By: Zoey Ramirez on 08-17-2022 Protein [Mass/Vol] 8.1 g/dL 6.4-8.9 [facility] Protein [Mass/Vol] 8.0 g/dL 6.0-8.5 [facility] Protein [Mass/volume] in Uri neOrdered By: Zoey Ramirez on 08-17-2022 Protein (U) [Mass/Vol] 75.0 mg/dL Not Estab. Fi [facility] Protein.monoclonal/Protein.t otal in 24 hour Urine by ElectrophoresisOrdered By: Zoey Ramirez on 08-17-2022 Protein.monoclonal Elph (24H U) [Mass fraction] Not observed % Not Observed [facility] RBC Auto (Bld) [#/Vol]Ordere d By: Zoey Ramirez on 08-17-2022 RBC (Bld) [#/Vol] 5.31 10*6/uL 3.60-5.00 [facility] Serum globulin measurement ( mass/volume)Ordered By: Zoey Ramirez on 08-17-2022 Globulin (S) [Mass/Vol] 4.3 g/dL 2.2-3.9 [facility] Serum or plasma albumin/glob ulin mass ratioOrdered By: Zoey Ramirez on 08-17-2022 Albumin/Globulin [Mass ratio] 1.0 {ratio} [facility] Albumin/Globulin [Mass ratio] 0.9 {ratio} 0.7-1.7 [facility] Serum or plasma alpha 1 glob ulin measurement by electrophoresis (mass/volume)Ordered By: Zoey Ramirez on 08-17-2022 Alpha 1 globulin Elph [Mass/Vol] 0.3 g/dL 0.0-0.4 [facility] Serum or plasma alpha 2 glob ulin measurement by electrophoresis (mass/volume)Ordered By: Zoey Ramirez on 08-17-2022 Alpha 2 globulin Elph [Mass/Vol] 0.8 g/dL 0.4-1.0 [facility] Serum or plasma anion gap de terminationOrdered By: Zoey Ramirez 08-17-2022 Anion gap [Moles/Vol] 12.8 mmol/L 6.0-15.0 [facility] Serum or plasma beta globuli n measurement by electrophoresis (mass/volume)Ordered By: Zoey Ramirez 08-17-2022 Beta globulin Elph [Mass/Vol] 1.3 g/dL 0.7-1.3 [facility] Serum or plasma gamma globul in measurement by electrophoresis (mass/volume)Ordered By: Zoey Ramirez 08-17-2022 Gamma globulin Elph [Mass/Vol] 1.9 g/dL 0.4-1.8 [facility] Sodium [Moles/volume] in Ser um or PlasmaOrdered By: Zoey Ramirez on 08-17-2022 Sodium [Moles/Vol] 136 mmol/L 136-145 [facility] Transferrin [Mass/volume] in Serum or PlasmaOrdered By: Zoey Ramirez on 08-17-2022 Transferrin [Mass/Vol] 246 mg/dL 203-362 [facility] Urea nitrogen [Mass/volume] in Serum or PlasmaOrdered By: Zoey Ramirez on 08-17-2022 Urea nitrogen [Mass/Vol] 23 mg/dL 11-16 [facility] Urine alpha 1 globulin/total protein by electrophoresisOrdered By: Zoey Ramirez on 08-17-2022 Alpha 1 globulin Elph (U) [Mass fraction] 4.5 % . [facility] Urine alpha 2 globulin/total protein ratio by electrophoresisOrdered By: Zoeyelvin Ramirez on 08-17-2022 Alpha 2 globulin Elph (U) [Mass fraction] 7.7 % . [facility] Urine beta globulin measurem ent by electrophoresis (mass/volume)Ordered By: Zoeyelvin Ramirez on 08-17-2022 Beta globulin Elph (U) [Mass/Vol] 12.6 % . [facility] Vitamin B12 ser/plasOrdered By: Zoeyelvin Ramirez on 08-17-2022 Cobalamin (Vitamin B12) [Mass/Vol] 387 pg/mL 180-914 [facility] WBC Auto (Bld) [#/Vol]Ordere d By: Zoey Ramirez on 08-17-2022 WBC (Bld) [#/Vol] 9.9 10*3/uL 3.8-11.6 [facility] Established Visit (Orthopaed ic Surgery)on [...] to do her outpatient physical therapy at [facility]. She has a few visits [...] on 07-23-2022 Albumin [Mass/Vol] 3.3 g/dL 2.9-4.4 [facility] Creatine kinase [Enzymatic a ctivity/volume] in Serum or PlasmaOrdered By: Lorrie Baig on 07-23-2022 CK [Catalytic activity/Vol] 51 U/L 30-223 [facility] Erythrocyte sedimentation ra te by Photometric methodOrdered By: Lorrie Baig on 07-23-2022 ESR Photometric method (Bld) [Velocity] 65 mm/hr 0-29 [facility] Folate [Mass/volume] in Seru m or PlasmaOrdered By: Lorrie Baig on 07-23-2022 Folate [Mass/Vol] 12.8 ng/mL >5.9 [facility] Comment on above: Folate reference ran ge: >5.9 ng/mlThe WHO technical consultation on folate and vitamin [id number] has determined that folate concentrations lessthan 4 ng/ml are considered deficient. Magnesium [Mass/volume] in S hugo or PlasmaOrdered By: Lorrie Baig on 07-23-2022 Magnesium [Mass/Vol] 1.8 mg/dL 1.9-2.7 [facility] No Panel InformationOrdered By: Lorrie Baig on 07-23-2022 Protein Electrophoresis Interpret See comment . [facility] Comment on above: Faint band in gamma region suspicious for monoclonalimmunoglobulin. This band may represent a benign spike asseen in older people or could be a paraprotein as seen inMultiple Myeloma, Waldenstrom's Macroglobulinemia orLymphoma. Depending on clinical circumstances, furtherdiagnostic studies may include serum immunofixation orserum free light chain quantitation.Performed at: [place] [id number] Director: Jeyson Duncan PhD, Phone: [phone] Protein Electrophoresis M-Antwan Comment: g/dL Not Observed [facility] Comment on above: ASYMMETRICAL GAMMA Protein Electrophoresis Note See comment . [facility] Comment on above: Protein electrophore sis scan will follow via computer,mail, or church supervisor delivery. Phosphate [Mass/volume] in S hugo or PlasmaOrdered By: Lorrie Baig on 07-23-2022 Phosphate [Mass/Vol] 4.5 mg/dL 3.7-7.2 [facility] Protein [Mass/volume] in Ser um or PlasmaOrdered By: Lorrie Baig on 07-23-2022 Protein [Mass/Vol] 7.2 g/dL 6.0-8.5 [facility] Serum globulin measurement ( mass/volume)Ordered By: Lorrie Baig on 07-23-2022 Globulin (S) [Mass/Vol] 3.9 g/dL 2.2-3.9 [facility] Serum or plasma albumin/glob ulin mass ratioOrdered By: Lorrie Baig on 07-23-2022 Albumin/Globulin [Mass ratio] 0.8 {ratio} 0.7-1.7 [facility] Serum or plasma alpha 1 glob ulin measurement by electrophoresis (mass/volume)Ordered By: Lorrie Baig on 07-23-2022 Alpha 1 globulin Elph [Mass/Vol] 0.3 g/dL 0.0-0.4 [facility] Serum or plasma alpha 2 glob ulin measurement by electrophoresis (mass/volume)Ordered By: Lorrie Baig on 07-23-2022 Alpha 2 globulin Elph [Mass/Vol] 0.7 g/dL 0.4-1.0 [facility] Serum or plasma beta globuli n measurement by electrophoresis (mass/volume)Ordered By: Lorrie Baig on 07-23-2022 Beta globulin Elph [Mass/Vol] 1.2 g/dL 0.7-1.3 [facility] Serum or plasma gamma globul in measurement by electrophoresis (mass/volume)Ordered By: Lorrie Baig on 07-23-2022 Gamma globulin Elph [Mass/Vol] 1.7 g/dL 0.4-1.8 [facility] Thyrotropin [Units/volume] i n Serum or PlasmaOrdered By: Lorrie Baig on 07-23-2022 TSH Qn 4.76 m[IU]/L 0.45-5.33 [facility] Vitamin B12 ser/plasOrdered By: Lorrie Baig on 07-23-2022 Cobalamin (Vitamin B12) [Mass/Vol] 358 pg/mL 180-914 [facility] KNEE 3 VIEWSon 07-14-2022 KNEE 3 VIEWS Patient Name: GEETA SHELTON STUDY: KNEE; 3 VIEWS; Right; 07/14/2022 8:47 am INDICATION: pain Z96.659: Status post total knee replacement. ACCESSION NUMBER(S): [id number] ORDERING CLINICIAN: ACOSTA SCHAFER FINDINGS: Right knee three views. Status post revision type total knee replacement components in good position no signs of fracture dislocation or other bony abnormality dee in the soft tissues anteriorly. Electronically signed by: ACOSTA SCHAFER MD [facility] Post Op (Orthopaedic Surgery )on 07-14-2022 Post [...] she will most likely do this at [facility] [place]. Physical exam General: No acute distress and [...] grammatical areas may persist related to the [employer] software Merrill Alejandro PA-C . Active Problems Problems Acute pain of both knees (338.19,719.46) (M25.561,M25.562) Status post total knee replacement (V43.65) (Z96.659) Allergies Medication Penicillins Recorded By: Tarsha Murray; 05/18/2022 8:47:33 AM Current Meds Medication NameInstruction Xarelto 10 MG Oral TabletTake 1 tablet daily Results/Data Xray Knee 3 [id number] 08:47AMSAcosta steward Test NameResultFlagReference Xray Knee 3 View(Report) FINAL REPORT Interpreted by: ACOSTA SCHAFER BURTON, MD 07/14/22 08:49 Patient Name: GEETA SHELTON STUDY: KNEE; 3 VIEWS; Right; 07/14/2022 8:47 am INDICATION: pain Z96.659: Status post total knee replacement. ACCESSION NUMBER(S): [id number] ORDERING CLINICIAN: ACOSTA SCHAFER FINDINGS: Right knee [...] Radiologyon 07-14-2022 XR Knee 3 Views Normal -[facility] Work Phone: Basic Metabolic Panel Reflex Mgon 07-03-2022 Anion gap [Moles/Vol] 10 mmol/L Normal 9-15 [facility] Comment on above: Performed By: #### B MPX #### [facility] [address] [place] [address] Calcium [Mass/Vol] 9.2 mg/dL Normal 8.5-9.9 [facility] Comment on above: Performed By: #### B MPX #### [facility] [address] [place] [address] Chloride [Moles/Vol] 100 mmol/L Normal 95-107 [facility] Comment on above: Performed By: #### B MPX #### [facility] [address] [place] [address] CO2 [Moles/Vol] 27 mmol/L Normal 20-31 [facility] Comment on above: Performed By: #### B MPX #### [facility] [address] [place] [address] Creatinine [Mass/Vol] 0.51 mg/dL Normal 0.50-0.90 [facility] Comment on above: Performed By: #### B MPX #### [facility] [address] [place] [address] GFR >60.0 Normal >60 [facility] Comment on above: Result Comment: Pedi [...] secretion. Performed By: #### B MPX #### [facility] [address] [place] [address] Glucose [Mass/Vol] 132 mg/dL Critically high 70-99 [facility] Comment on above: Performed By: #### B MPX #### [facility] [address] [place] [address] Magnesium [Moles/Vol] 4.6 mmol/L Normal 3.4-4.9 [facility] Comment on above: Performed By: #### B MPX #### [facility] [address] [place] [address] Sodium [Moles/Vol] 137 mmol/L Normal 135-144 [facility] Comment on above: Performed By: #### B MPX #### [facility] [address] [place] [address] Urea nitrogen [Mass/Vol] 12 mg/dL Normal 6-20 [facility] Comment on above: Performed By: #### B MPX #### [facility] [address] [place] [address] Basic Metabolic Panel w/ Ref hillary to MGon 07-03-2022 Anion gap [Moles/Vol] 10 mmol/L [facility] Calcium [Mass/Vol] 9.2 mg/dL 8.5 - 9.9 mg/dL [facility] Chloride [Moles/Vol] 100 mmol/L [facility] CO2 [Moles/Vol] 27 mmol/L [facility] Creatinine [Mass/Vol] 0.51 mg/dL 0.50 - 0.90 mg/dL [facility] GFR/1.73 sq M.predicted MDRD (S/P/Bld) [Vol rate/Area] 60 - [facility] Comment on above: Pediatric calculator link [...] 132 mg/dL High 70 - 99 mg/dL [facility] Interpretation and review of laboratory results Abnormal [facility] Potassium reflex Magnesium 4.6 [facility] Sodium [Moles/Vol] 137 mmol/L [facility] Urea nitrogen (BldV) [Mass/Vol] 12 mg/dL 6 - 20 mg/dL [facility] CBCon 07-03-2022 Hematocrit (Bld) [Volume fraction] 39.9 % 37.0 - 47.0 % [facility] Hemoglobin (Bld) [Mass/Vol] 12.9 g/dL 12.0 - 16.0 g/dL [facility] Interpretation and review of laboratory results Abnormal [facility] MCH (RBC) [Entitic mass] 25.7 pg Low 27. 0 - 31.3 pg [facility] MCHC (RBC) [Mass/Vol] 32.3 % Low 33.0 - 37.0 % [facility] MCV (RBC) [Entitic vol] 79.6 fL 79.4 - 94.8 fL [facility] Platelet distribution width (Bld) [Ratio] 16.5 % High 11.5 - 14.5 % [facility] Platelets (Bld) [#/Vol] 230 10*3/uL 130 - 400 K/uL [facility] RBC (Bld) [#/Vol] 5.02 10*6/uL [facility] WBC (Bld) [#/Vol] 9.2 10*3/uL 4.8 - 10.8 K/uL [facility] CBC With Platelet No Differe ntialon 07-03-2022 Erythrocyte distribution width (RBC) [Ratio] 16.5 % Critically high 11.5-14.5 [facility] Comment on above: Performed By: #### C BCND #### [facility] [address] [place] [address] Hematocrit (Bld) [Volume fraction] 39.9 % Normal 37.0-47.0 [facility] Comment on above: Performed By: #### C BCND #### [facility] [address] [place] [address] Hemoglobin (Bld) [Mass/Vol] 12.9 g/dL Normal 12.0-16.0 [facility] Comment on above: Performed By: #### C BCND #### [facility] [address] [place] [address] MCH (RBC) [Entitic mass] 25.7 pg Low 27.0-31.3 [facility] Comment on above: Performed By: #### C BCND #### [facility] [address] [place] [address] MCHC 32.3 % Low 33.0-37.0 [facility] Comment on above: Performed By: #### C BCND #### [facility] [address] [place] [address] MCV (RBC) [Entitic vol] 79.6 fL Normal 79.4-94.8 [facility] Comment on above: Performed By: #### C BCND #### [facility] [address] [place] [address] Platelets (Bld) [#/Vol] 230 10*3/uL Normal 130-400 [facility] Comment on above: Performed By: #### C BCND #### [facility] [address] [place] [address] RBC (Bld) [#/Vol] 5.02 10*6/uL Normal 4.20-5.40 [facility] Comment on above: Performed By: #### C BCND #### [facility] [address] [place] [address] WBC (Bld) [#/Vol] 9.2 10*3/uL Normal 4.8-10.8 [facility] Comment on above: Performed By: #### C BCND #### [facility] [address] [place] [address] Basic Metabolic Panel Reflex Mgon 07-02-2022 Anion gap [Moles/Vol] 8 mmol/L Low 9-15 [facility] Comment on above: Order Comment: Colle ction has been rescheduled by VALDO at 07/02/2022 05:49 Reason: Come back last per lauren reinoso Performed By: #### B MPX #### [facility] [address] [place] [address] Calcium [Mass/Vol] 8.9 mg/dL Normal 8.5-9.9 [facility] Comment on above: Order Comment: Daja zamarripa has been rescheduled by HERAM at 07/02/2022 05:49 Reason: Come back last per rn fouzia Performed By: #### B MPX #### [facility] [address] [place] [address] Chloride [Moles/Vol] 100 mmol/L Normal 95-107 [facility] Comment on above: Order Comment: Daja zamarripa has been rescheduled by HERAM at 07/02/2022 05:49 Reason: Come back last per rn fouzia Performed By: #### B MPX #### [facility] [address] [place] [address] CO2 [Moles/Vol] 27 mmol/L Normal 20-31 [facility] Comment on above: Order Comment: Daja zamarripa has been rescheduled by HERAM at 07/02/2022 05:49 Reason: Come back last per rn fouzia Performed By: #### B MPX #### [facility] [address] [place] [address] Creatinine [Mass/Vol] 0.61 mg/dL Normal 0.50-0.90 [facility] Comment on above: Order Comment: Daja zamarripa has been rescheduled by HERAM at 07/02/2022 05:49 Reason: Come back last per rn fouzia Performed By: #### B MPX #### [facility] [address] [place] [address] GFR >60.0 Normal >60 [facility] Comment on above: Order Comment: Daja [...] secretion. Performed By: #### B MPX #### [facility] [address] [place] [address] Glucose [Mass/Vol] 144 mg/dL Critically high 70-99 [facility] Comment on above: Order Comment: Daja zamarripa has been rescheduled by HERMICHELLE at 07/02/2022 05:49 Reason: Come back last per lauren reinoso Performed By: #### B MPX #### [facility] [address] [place] [address] Magnesium [Moles/Vol] 4.8 mmol/L Normal 3.4-4.9 [facility] Comment on above: Order Comment: Daja zamarripa has been rescheduled by HERMICHELLE at 07/02/2022 05:49 Reason: Come back last per rn fouzia Performed By: #### B MPX #### [facility] [address] [address] Sodium [Moles/Vol] 135 mmol/L Normal 135-144 [facility] Comment on above: Order Comment: Daja zamarripa has been rescheduled by HERMICHELLE at 07/02/2022 05:49 Reason: Come back last per lauren reinoso Performed By: #### B MPX #### [facility] [address] [address] Urea nitrogen [Mass/Vol] 21 mg/dL Critically high 6-20 [facility] Comment on above: Order Comment: Daja zamarripa has been rescheduled by HERAM at 07/02/2022 05:49 Reason: Come back last per lauren reinoso Performed By: #### B MPX #### [facility] [address] [place] [address] Basic Metabolic Panel w/ Ref hillary to MGon 07-02-2022 Anion gap [Moles/Vol] 8 mmol/L Low [facility] Calcium [Mass/Vol] 8.9 mg/dL 8.5 - 9.9 mg/dL [facility] Chloride [Moles/Vol] 100 mmol/L [facility] CO2 [Moles/Vol] 27 mmol/L [facility] Creatinine [Mass/Vol] 0.61 mg/dL 0.50 - 0.90 mg/dL [facility] GFR/1.73 sq M.predicted MDRD (S/P/Bld) [Vol rate/Area] 60 - [facility] Comment on above: Pediatric calculator link [...] 144 mg/dL High 70 - 99 mg/dL [facility] Interpretation and review of laboratory results Abnormal [facility] Potassium reflex Magnesium 4.8 [facility] Sodium [Moles/Vol] 135 mmol/L [facility] Urea nitrogen (BldV) [Mass/Vol] 21 mg/dL High 6 - 20 mg/dL [facility] Collection has been rescheduled by VALDO at 07/02/2022 05:49 Reason: Come back last per lauren galdamezfouzia [facility] CBCon 07-02-2022 Hematocrit (Bld) [Volume fraction] 40.3 % 37.0 - 47.0 % [facility] Hemoglobin (Bld) [Mass/Vol] 12.9 g/dL 12.0 - 16.0 g/dL [facility] Interpretation and review of laboratory results Abnormal [facility] MCH (RBC) [Entitic mass] 25.5 pg Low 27. 0 - 31.3 pg [facility] MCHC (RBC) [Mass/Vol] 32.1 % Low 33.0 - 37.0 % [facility] MCV (RBC) [Entitic vol] 79.6 fL 79.4 - 94.8 fL [facility] Platelet distribution width (Bld) [Ratio] 16.3 % High 11.5 - 14.5 % [facility] Platelets (Bld) [#/Vol] 230 10*3/uL 130 - 400 K/uL [facility] RBC (Bld) [#/Vol] 5.06 10*6/uL [facility] WBC (Bld) [#/Vol] 9.1 10*3/uL 4.8 - 10.8 K/uL [facility] Collection has been rescheduled by HERMICHELLE at 07/02/2022 05:49 Reason: Come back last per lauren reinoso [facility] CBC With Platelet No Differe ntialon 07-02-2022 Erythrocyte distribution width (RBC) [Ratio] 16.3 % Critically high 11.5-14.5 [facility] Comment on above: Order Comment: Daja zamarripa has been rescheduled by VALDO at 07/02/2022 05:49 Reason: Come back last per lauren reinoso Performed By: #### C BCND #### [facility] [address] [facility] [address] Hematocrit (Bld) [Volume fraction] 40.3 % Normal 37.0-47.0 [facility] Comment on above: Order Comment: Daja zamarripa has been rescheduled by VALDO at 07/02/2022 05:49 Reason: Come back last per lauren reinoso Performed By: #### C BCND #### [facility] [address] [facility] [address] Hemoglobin (Bld) [Mass/Vol] 12.9 g/dL Normal 12.0-16.0 [facility] Comment on above: Order Comment: Daja ctjanie has been rescheduled by VALDO at 07/02/2022 05:49 Reason: Come back last per lauren reinoso Performed By: #### C BCND #### [facility] [address] [place] [address] MCH (RBC) [Entitic mass] 25.5 pg Low 27.0-31.3 [facility] Comment on above: Order Comment: Daja ctjanie has been rescheduled by HERAM at 07/02/2022 05:49 Reason: Come back last per rn fouzia Performed By: #### C BCND #### [facility] [address] [place] [address] MCHC 32.1 % Low 33.0-37.0 [facility] Comment on above: Order Comment: Daja ctjanie has been rescheduled by HERAM at 07/02/2022 05:49 Reason: Come back last per rn fouzia Performed By: #### C BCND #### [facility] [address] [place] [address] MCV (RBC) [Entitic vol] 79.6 fL Normal 79.4-94.8 [facility] Comment on above: Order Comment: Daja ctjanie has been rescheduled by HERAM at 07/02/2022 05:49 Reason: Come back last per rn fouzia Performed By: #### C BCND #### [facility] [address] [place] [address] Platelets (Bld) [#/Vol] 230 10*3/uL Normal 130-400 [facility] Comment on above: Order Comment: Daja zamarripa has been rescheduled by HERAM at 07/02/2022 05:49 Reason: Come back last per rn fouzia Performed By: #### C BCND #### [facility] [address] [address] RBC (Bld) [#/Vol] 5.06 10*6/uL Normal 4.20-5.40 [facility] Comment on above: Order Comment: Daja ctjanie has been rescheduled by HERAM at 07/02/2022 05:49 Reason: Come back last per rn fouzia Performed By: #### C BCND #### [facility] [address] [place] [address] WBC (Bld) [#/Vol] 9.1 10*3/uL Normal 4.8-10.8 [facility] Comment on above: Order Comment: Daja zamarripa has been rescheduled by VALDO at 07/02/2022 05:49 Reason: Come back last per rn fouzia Performed By: #### C BCND #### [facility] [address] [place] [address] US DUP UPPER EXTREMITY LEFT VENOUSon 07-02-2022 [...] Jean Sifuentes MD 07/02/22 Final result Normal [facility] No evidence of DVT. [facility] EXAMINATION: VENOUS ULTRASOUND OF THE LEFT [...] normal color flow study and spectral analysis. [facility] Jean Sifuentes MD - 07/02/2022 EXAMINATION: [...] spectral analysis. IMPRESSION: No evidence of DVT. [employer] Work Phone: [employer] Phone: Radiology Study observation (narrative) [employer] Phone: XR KNEE RIGHT (1-2 VIEWS)on 07-01-2022 [...] Jean Sifuentes MD 07/01/22 Final result Normal [facility] Normal postsurgical appearance [facility] EXAMINATION: TWO XRAY VIEWS OF THE [...] are intact. Overlying surgical dee are seen [facility] Jean Sifuentes MD - 07/01/2022 EXAMINATION: [...] dee are seen IMPRESSION: Normal postsurgical appearance [employer] Work Phone: Radiology Study observation (narrative) [employer] Phone: XR KNEE RIGHT (1-2 VIEWS)Ord ered By: Jean Sifuentes on 07-01-2022 [employer] Work Phone: MRSA DNA Probe, Nasalon -0 MRSA, DNA, Nasal Negative NEG [employer] Comment on above: NEGATIVE: MRSA DNA n ot detected by nucleic acid amplification. Results should be used as an adjunct to nosocomial control efforts to identify patients needing enhanced precautions. The test is not intended to identify patients with staphylococcal infections. Results should not be used to guide or monitor treatment for MRSA infections. [employer] [address] [place] [phone] ([phone] Specimen Description Swab [employer] MRSA, DNA, Nasalon MRSA, DNA, Nasal Negative Normal NEG [facility] Comment on above: Result Comment: NEGA TIVE: MRSA DNA not detected by nucleic acid amplification. Results should be used as an adjunct to nosocomial control efforts to identify patients needing enhanced precautions. The test is not intended to identify patients with staphylococcal infections. Results should not be used to guide or monitor treatment for MRSA infections. [employer] [address] [place] [address] [phone] Performed By: #### I MRSA #### [facility] [address] [place] [address] EKG 12 LeadOrdered By: Leigh Ann Nash on 06-25-2022 Atrial Rate 73 BPM [employer] Work Phone: P Dorena 33 degrees [employer] Work Phone: P-R Interval 160 ms [employer] Work Phone: Q-T Interval 406 ms [employer] Work Phone: QRS Duration 102 ms [employer] Work Phone: QTc Calculation (Bazett) 447 ms [employer] Work Phone: R Dorena 74 degrees [employer] Phone: T Dorena 65 degrees [employer] Work Phone: Ventricular Rate 73 BPM [facility] [employer] Work Phone: [employer] Work Phone: EKG 12 Leadon 06-25-2022 Normal sinus rhythm Incomplete right bundle branch block Confirmed by LEIGH ANN NASH ([id number]) on 06/25/2022 6:49:48 PM Leigh Ann Sumner, DO - 06/25/2022 Normal sinus rhythm Incomplete right bundle branch block Confirmed by LEIGH ANN NASH ([id number]) on 06/25/2022 6:49:48 PM [employer] Work Phone: Established Visit (Orthopaed ic Surgery)on [...] plans on performing outpatient physical therapy at [facility] in [place]. All of the patient's questions and concerns [...] today's treatment with some difficulty. Evaluation Code: 80861 PT Eval: Low Complexity, 32 min(s). Resources provided today: education Signatures Electronically signed by : Natali Tyson, PT DPT; Jun 30 2022 10:08AM EST (Author) Normal [facility] APTTon 06-24-2022 aPTT Coag (Bld) [Time] 30.1 s YECENIA Nohelia [facility] Comment on above: Effective 02/27/2020: Heparin Therapeutic Range: 64.0 98.0 seconds. [facility] CBC With Platelet and Differ entialon 06-24-2022 Basophils (Bld) [#/Vol] 0.1 10*3/uL Normal 0.0-0.2 [facility] Comment on above: Performed By: #### C BCWD #### [facility] [address] [place] [address] Basophils/100 WBC (Bld) 0.6 % Normal [facility] Comment on above: Performed By: #### C BCWD #### [facility] [address] [place] [address] Eosinophils (Bld) [#/Vol] 0.1 10*3/uL Normal 0.0-0.7 [facility] Comment on above: Performed By: #### C BCWD #### [facility] [address] [place] [address] Eosinophils/100 WBC (Bld) 1.6 % Normal [facility] Comment on above: Performed By: #### C BCWD #### [facility] [address] [place] [address] Erythrocyte distribution width (RBC) [Ratio] 16.4 % Critically high 11.5-14.5 [facility] Comment on above: Performed By: #### C BCWD #### [facility] [address] [place] [address] Hematocrit (Bld) [Volume fraction] 44.4 % Normal 37.0-47.0 [facility] Comment on above: Performed By: #### C BCWD #### [facility] [address] [place] [address] Hemoglobin (Bld) [Mass/Vol] 14.2 g/dL Normal 12.0-16.0 [facility] Comment on above: Performed By: #### C BCWD #### [facility] [address] [place] [address] Lymphocytes (Bld) [#/Vol] 2.3 10*3/uL Normal 1.0-4.8 [facility] Comment on above: Performed By: #### C BCWD #### [facility] [address] [place] [address] Lymphocytes/100 WBC (Bld) 25.8 % Normal [facility] Comment on above: Performed By: #### C BCWD #### [facility] [address] [place] [address] MCH (RBC) [Entitic mass] 25.1 pg Low 27.0-31.3 [facility] Comment on above: Performed By: #### C BCWD #### [facility] [address] [place] [address] MCHC 32.0 % Low 33.0-37.0 [facility] Comment on above: Performed By: #### C BCWD #### [facility] [address] [place] [address] MCV (RBC) [Entitic vol] 78.5 fL Low 79.4-94.8 [facility] Comment on above: Performed By: #### C BCWD #### [facility] [address] [place] [address] Monocytes (Bld) [#/Vol] 0.8 10*3/uL Normal 0.2-0.8 [facility] Comment on above: Performed By: #### C BCWD #### [facility] [address] [place] [address] Monocytes/100 WBC (Bld) 9.4 % Normal [facility] Comment on above: Performed By: #### C BCWD #### [facility] [address] [place] [address] Neutrophils (Bld) [#/Vol] 5.6 10*3/uL Normal 1.4-6.5 [facility] Comment on above: Performed By: #### C BCWD #### [facility] [address] [place] [address] Neutrophils/100 WBC (Bld) 62.6 % Normal [facility] Comment on above: Performed By: #### C BCWD #### [facility] [address] [place] [address] Platelets (Bld) [#/Vol] 281 10*3/uL Normal 130-400 [facility] Comment on above: Performed By: #### C BCWD #### [facility] [address] [place] [address] RBC (Bld) [#/Vol] 5.66 10*6/uL Critically high 4.20-5.40 [facility] Comment on above: Performed By: #### C BCWD #### [facility] [address] [place] [address] WBC (Bld) [#/Vol] 8.9 10*3/uL Normal 4.8-10.8 [facility] Comment on above: Performed By: #### C BCWD #### [facility] [address] [place] [address] CBC with Auto Differentialon 06-24-2022 Basophils (Bld) [#/Vol] 0.1 10*3/uL 0.0 - 0.2 K/uL [facility] Basophils/100 WBC (Bld) 0.6 % [facility] Eosinophils (Bld) [#/Vol] 0.1 10*3/uL 0.0 - 0.7 K/uL [facility] Eosinophils/100 WBC (Bld) 1.6 % [facility] Hematocrit (Bld) [Volume fraction] 44.4 % 37.0 - 47.0 % [facility] Hemoglobin (Bld) [Mass/Vol] 14.2 g/dL 12.0 - 16.0 g/dL [facility] Interpretation and review of laboratory results Abnormal [facility] Lymphocytes (Bld) [#/Vol] 2.3 10*3/uL 1.0 - 4.8 K/uL [facility] Lymphocytes/100 WBC (Bld) 25.8 % [facility] MCH (RBC) [Entitic mass] 25.1 pg Low 27. 0 - 31.3 pg [facility] MCHC (RBC) [Mass/Vol] 32.0 % Low 33.0 - 37.0 % [facility] MCV (RBC) [Entitic vol] 78.5 fL Low 79.4 - 94.8 fL [facility] Monocytes (Bld) [#/Vol] 0.8 10*3/uL 0.2 - 0.8 K/uL [facility] Monocytes/100 WBC (Bld) 9.4 % B [facility] Neutrophils Absolute 5.6 K/uL 1.4 - 6 .5 K/uL [facility] Neutrophils/100 WBC (Bld) 62.6 % [facility] Platelet distribution width (Bld) [Ratio] 16.4 % High 11.5 - 14.5 % [facility] Platelets (Bld) [#/Vol] 281 10*3/uL 130 - 400 K/uL [facility] RBC (Bld) [#/Vol] 5.66 10*6/uL High [facility] WBC (Bld) [#/Vol] 8.9 10*3/uL 4.8 - 10.8 K/uL [facility] Comprehensive Metabolic Pane gretel 06-24-2022 Albumin [Mass/Vol] 4.2 g/dL Normal 3.5-4.6 [facility] Comment on above: Performed By: #### U MARIA ELENA #### [facility] [address] [place] [address] ALP [Catalytic activity/Vol] 89 U/L Normal 40-130 [facility] Comment on above: Performed By: #### U MARIA ELENA #### [facility] [address] [place] [address] ALT [Catalytic activity/Vol] 47 U/L Critically high 0-33 [facility] Comment on above: Performed By: #### U MARIA ELENA #### [facility] [address] [place] [address] Anion gap [Moles/Vol] 13 mmol/L Normal 9-15 [facility] Comment on above: Performed By: #### U MARIA ELENA #### [facility] [address] [place] [address] AST [Catalytic activity/Vol] 44 U/L Critically high 0-35 [facility] Comment on above: Performed By: #### U MARIA ELENA #### [facility] [address] [place] [address] Bilirubin [Mass/Vol] 0.5 mg/dL Normal 0.2-0.7 [facility] Comment on above: Performed By: #### U MARIA ELENA #### [facility] [address] [place] [address] Calcium [Mass/Vol] 9.2 mg/dL Normal 8.5-9.9 [facility] Comment on above: Performed By: #### U MARIA ELENA #### [facility] [address] [place] [address] Chloride [Moles/Vol] 100 mmol/L Normal 95-107 [facility] Comment on above: Performed By: #### U MARIA ELENA #### [facility] [address] [place] [address] CO2 [Moles/Vol] 26 mmol/L Normal 20-31 [facility] Comment on above: Performed By: #### U MARIA ELENA #### [facility] [address] [place] [address] Creatinine [Mass/Vol] 0.54 mg/dL Normal 0.50-0.90 [facility] Comment on above: Performed By: #### U MARIA ELENA #### [facility] [address] [place] [address] GFR >60.0 Normal >60 [facility] Comment on above: Result Comment: Myra [...] Performed By: #### U MARIA ELENA #### [facility] [address] [place] [address] Globulin (S) [Mass/Vol] 3.9 g/dL Critically high 2.3-3.5 [facility] Comment on above: Performed By: #### U MARIA ELENA #### [facility] [address] [place] [address] Glucose [Mass/Vol] 124 mg/dL Critically high 70-99 [facility] Comment on above: Performed By: #### U MARIA ELENA #### [facility] [address] [place] [address] Potassium [Moles/Vol] 4.4 mmol/L Normal 3.4-4.9 [facility] Comment on above: Performed By: #### U MARIA ELENA #### [facility] [address] [place] [address] Protein [Mass/Vol] 8.1 g/dL Critically high 6.3-8.0 [facility] Comment on above: Performed By: #### U MARIA ELENA #### [facility] [address] [place] [address] Sodium [Moles/Vol] 139 mmol/L Normal 135-144 [facility] Comment on above: Performed By: #### U MARIA ELENA #### [facility] [address] [place] [address] Urea nitrogen [Mass/Vol] 14 mg/dL Normal 6-20 [facility] Comment on above: Performed By: #### U MARIA ELENA #### [facility] [address] [place] [address] Albumin [Mass/Vol] 4.2 g/dL 3.5 - 4.6 g/dL [facility] ALP (Bld) [Catalytic activity/Vol] 89 U/L 40 - 130 U/L [facility] ALT [Catalytic activity/Vol] 47 U/L High 0 - 33 U/L [facility] Anion gap [Moles/Vol] 13 mmol/L [facility] AST [Catalytic activity/Vol] 44 U/L High 0 - 35 U/L [facility] Bilirubin [Mass/Vol] 0.5 mg/dL 0.2 - 0 .7 mg/dL [facility] Calcium [Mass/Vol] 9.2 mg/dL 8.5 - 9.9 mg/dL [facility] Chloride [Moles/Vol] 100 mmol/L [facility] CO2 [Moles/Vol] 26 mmol/L [facility] Creatinine [Mass/Vol] 0.54 mg/dL 0.50 - 0.90 mg/dL [facility] GFR/1.73 sq M.predicted MDRD (S/P/Bld) [Vol rate/Area] 60 - [facility] Comment on above: Pediatric calculator link [...] 3.9 g/dL High 2.3 - 3.5 g/dL [facility] Glucose [Mass/Vol] 124 mg/dL High 70 - 99 mg/dL [facility] Interpretation and review of laboratory results Abnormal [facility] Potassium [Moles/Vol] 4.4 mmol/L [facility] Protein [Mass/Vol] 8.1 g/dL High 6.3 - 8.0 g/dL [facility] Sodium [Moles/Vol] 139 mmol/L [facility] Urea nitrogen (BldV) [Mass/Vol] 14 mg/dL 6 - 20 mg/dL [facility] Laboratory - Coagulationon 0 06-24-2022 INR Coag (Bld) [Relative time] 1.1 {INR} [facility] Work Phone: Laboratory - Hematology and Cell countson 06-24-2022 Basophils/100 WBC (Bld) 0.6 % Normal [facility] Work Phone: Eosinophils/100 WBC (Bld) 1.6 % Normal [facility] Work Phone: Lymphocytes/100 WBC (Bld) 25.8 % Normal [facility] Work Phone: Monocytes/100 WBC (Bld) 9.4 % Normal [facility] Work Phone: Neutrophils/100 WBC (Bld) 62.6 % Normal [facility] Work Phone: MRSA, DNA, Nasalon 3 Specimen Description Swab Normal [facility] Comment on above: Performed By: #### I MRSA #### [facility] [address] [place] [address] Microscopic Urinalysison Bacteria, UA FEW Abnormal Negative /HPF [facility] Epithelial Cells, UA 0-2 [facility] Hyaline Casts, UA 0-1 [facility] RBC, UA 0-2 [facility] WBC, UA 3-5 [facility] No Panel Informationon 06-24 Interpretation and review of laboratory results Abnormal [facility] TRACE Abnormal Negative [facility] Work Phone: [phone] Negative Normal Negative [facility] Work Phone: [phone] 0.2 {E.U./dL} Normal < 2.0 [facility] Work Phone: [phone] 30 mg/dL Abnormal Negative [facility] Work Phone: [phone] 7.0 1 Normal 5.0-9.0 [facility] Work Phone: [phone] Not Indicated Normal [facility] Work Phone: [phone] 1.010 1 Normal 1.005-1.03 [facility] Work Phone: [phone] Clear Normal Clear [facility] Work Phone: [phone] Yellow Normal Straw/Graham [facility] Work Phone: [phone] 0-2 Normal 0-5 [facility] Work Phone: [phone] 3-5 Normal 0-5 [facility] Work Phone: [phone] 0-1 Normal 0-5 [facility] Work Phone: [phone] FEW Abnormal Negative [facility] Work Phone: [phone] 281 K/uL Normal 130-400 [facility] Work Phone: [phone] 16.4 % above high threshold 11.5-14.5 [facility] Work Phone: [phone] 32.0 % below low threshold 33.0-37.0 [facility] Work Phone: [phone] 0.1 K/uL Normal 0.0-0.2 [facility] Work Phone: [phone] 0.8 K/uL Normal 0.2-0.8 [facility] Work Phone: [phone] 2.3 K/uL Normal 1.0-4.8 [facility] Work Phone: [phone] 5.6 K/uL Normal 1.4-6.5 [facility] Work Phone: [phone] 25.1 pg below low threshold 27.0-31.3 [facility] Work Phone: [phone] 78.5 fL below low threshold 79.4-94.8 [facility] Work Phone: 44.4 % Normal 37.0-47.0 [facility] Work Phone: 14.2 g/dL Normal 12.0-16.0 [facility] Work Phone: [phone] 5.66 {M/uL} above high threshold 4.20-5.40 [facility] Work Phone: [phone] 8.9 K/uL Normal 4.8-10.8 [facility] Work Phone: 14.8 {sec} Normal 12.3-14.9 [facility] Work Phone: 30.1 {sec} Normal 24.4-36.8 [facility] Work Phone: Comment on above: Effective 02/27/2020: Heparin Therapeutic Range: 64.0 ? 98.0 seconds. 4.2 g/dL Normal 3.5-4.6 [facility] Work Phone: [phone] 3.9 g/dL above high threshold 2.3-3.5 [facility] Work Phone: [phone] U/L above high threshold 0-35 [facility] [...] [facility] Work Phone: 4.4 {mEq/L} Normal 3.4-4.9 [facility] Work Phone: 139 {mEq/L} Normal 135-144 [facility] Work Phone: Negative Normal NEG [facility] Work Phone: Comment on above: NEGATIVE: MRSA DNA n ot detected by nucleic acid amplification. Results should be used as an adjunct to nosocomial control efforts toidentify patients needing enhanced precautions.The test is not intended to identify patients with staphylococcalinfections. Results should not be used to guide or monitor treatmentfor MRSA infections.[facility] [address] ([phone] Swab Normal [facility] Work Phone: Partial Thromboplastin Timeo n 06-24-2022 aPTT Coag (Bld) [Time] 30.1 s Normal 24.4-36.8 [facility] Comment on above: Result Comment: Effe ctive 02/27/2020: Heparin Therapeutic Range: 64.0 ? 98.0 seconds. Performed By: #### U MARIA ELENA #### [facility] [address] [facility] [address] Prothrombin Timeon INR Coag (PPP) [Relative time] 1.1 {INR} Normal [facility] Comment on above: Performed By: #### P T #### [facility] [address] [facility] [address] PT Coag (PPP) [Time] 14.8 s Normal 12.3-14.9 [facility] Comment on above: Performed By: #### P T #### [facility] [address] [facility] [address] Protime-INRon 06-24-2022 INR Coag (Bld) [Relative time] 1.1 {INR} [facility] PT Coag (PPP) [Time] 14.8 s [facility] [employer] TYPE AND SCREENon 06-24-2022 ABO/Rh Negative [facility] [employer] Comment on above: @06/24/22 14:01 by Elaina FISCHER: BACK TYPE CONFIRMED IN TUBE. LMB Confirmation type ne eds to be drawn. [facility] Type and 3 cell Screen OB Ca ptureon 06-24-2022 Type and 3 cell Screen OB Capture PATIENT: PINKY Prince LOC: [place] BILL# : [id number] : 1970 SEX: F ORDERED BY: GILMAR COX ORDERED : 06/24/2022 11:08 COLLECTED: 06/24/2022 11:45 ORDER : [id number] RECEIVED : 06/24/2022 11:45 Confirmation type needs to be drawn. --- TEST NAME RESULT UNITS RANGES ABN FL ST [facility] Capture A NEG F @06/24/22 14:01 by RUDY: BACK TYPE CONFIRMED IN TUBE. LMB Antibody 3 Cell Scrn Captu NEG F -- Normal [facility] Comment on above: Performed By: #### T SO3C #### [facility] [address] [facility] [address] Urinalysis with Reflex to Cu ltureon 06-24-2022 Bilirubin Urine Negative Negative [facility] Blood, Urine Negative Negative [facility] [employer] [facility] Clarity, UA Clear Clear [facility] [employer] Color, UA Yellow Straw/Graham ow [facility] [employer] Glucose, Ur Negative Negative mg/dL [facility] [employer] Ketones Ql (U) Negative Negative mg/dL [facility] Leukocyte esterase Test strip Ql (U) TRACE Abnormal Negative [facility] Nitrite, Urine Negative Negative [facility] pH, UA 7.0 5.0 - 9.0 [facility] Protein (U) [Mass/Vol] 30 mg/dL Abnormal Negative [facility] Specific [place], UA 1.010 1.005 - 1.030 [facility] Urine Reflex to Culture Not Indicated [facility] Urobilinogen, Urine 0.2 NINF [facility] Urinalysis, reflex to cultur gurinder 06-24-2022 Urine Reflexed to Culture Not Indicated Normal [facility] Comment on above: Performed By: #### U AR #### [facility] [address] [place] [address] Bilirubin Ql (U) Negative Normal Negative [facility] Comment on above: Performed By: #### U AR #### [facility] [address] [place] [address] Clarity (U) Clear Normal Clear [facility] Comment on above: Performed By: #### U AR #### [facility] [address] [place] [address] Color (U) Yellow Normal Straw/Graham [facility] Comment on above: Performed By: #### U AR #### [facility] [address] [place] [address] Glucose Ql (U) Negative Normal Negative [facility] Comment on above: Performed By: #### U AR #### [facility] [address] [place] [address] Hemoglobin Ql (U) Negative Normal Negative [facility] Comment on above: Performed By: #### U AR #### [facility] [address] [place] [address] Ketones Ql (U) Negative Normal Negative [facility] Comment on above: Performed By: #### U AR #### [facility] [address] [place] [address] Leukocyte esterase Test strip Ql (U) TRACE Abnormal Negative [facility] Comment on above: Performed By: #### U AR #### [facility] [address] [place] [address] Nitrite Ql (U) Negative Normal Negative [facility] Comment on above: Performed By: #### U AR #### [facility] [address] [place] [address] pH (U) 7.0 [pH] Normal 5.0-9.0 [facility] Comment on above: Performed By: #### U AR #### [facility] [address] [place] [address] Protein Ql (U) 30 mg/dL Abnormal Negative [facility] Comment on above: Performed By: #### U AR #### [facility] [address] [place] [address] Specific gravity (U) [Rel density] 1.010 Normal 1.005-1.03 [facility] Comment on above: Performed By: #### U AR #### [facility] [address] [place] [address] Urobilinogen Qn (U) 0.2 {Reji'U}/dL Normal < 2.0 [facility] Comment on above: Performed By: #### U AR #### [facility] [address] [place] [address] Urine Microscopicon 06-25-19 23 Urine Bacteria FEW Abnormal Negative [facility] Comment on above: Performed By: #### U MARIA ELENA #### [facility] [address] [place] [address] Urine Epithelial Cells Auto 0-2 Normal 0-5 [facility] Comment on above: Performed By: #### U MARIA ELENA #### [facility] [address] [place] [address] Urine Hyaline Casts Auto 0-1 Normal 0-5 [facility] Comment on above: Performed By: #### U MARIA ELENA #### [facility] [address] [place] [address] Urine RBC Auto 0-2 Normal 0-5 [facility] Comment on above: Performed By: #### U MARIA ELENA #### [facility] [address] [place] [address] Urine WBC Auto 3-5 Normal 0-5 [facility] Comment on above: Performed By: #### U MAIRA ELENA #### [facility] [address] [place] [address] BILATERAL KNEE COMPLT, 4 OR MORE VIEWSon 05-18-2022 BILATERAL KNEE COMPLT, 4 OR MORE VIEWS Patient Name: GEETA SHELTON STUDY: BILATERAL KNEE; COMPLT, 4 OR MORE VIEWS; ; 05/18/2022 9:07 am INDICATION: pain M25.561: Acute pain of both knees M25.562:. ACCESSION NUMBER(S): [id number] ORDERING CLINICIAN: ACOSTA SCHAFER FINDINGS: Weightbearing four [...] Electronically signed by: ACOSTA SCHAFER MD Normal [facility] Initial Visit (Orthopaedic S urgery)on [...] recognition (more content not included)... [facility] Radiology[facility] 05-18-2022 XR Knee 4 Views [facility] Work Phone: Albumin [Mass/volume] in Ser um or PlasmaOrdered By: Elizabeth Alvarado on 05-07-2022 Albumin [Mass/Vol] 3.9 g/dL 3.2-5.5 [facility] Alkaline phosphatase [Enzyma tic activity/volume] in Serum or PlasmaOrdered By: Elizabeth Alvarado on 05-07-2022 ALP [Catalytic activity/Vol] 83 U/L 32-92 [facility] Aspartate aminotransferase [ Enzymatic activity/volume] in Serum or PlasmaOrdered By: Elizabeth Alvarado on 05-07-2022 AST [Catalytic activity/Vol] 56 U/L 10-42 [facility] Basophils Auto (Bld) [#/Vol] Ordered By: Elizabeth Alvarado on 05-07-2022 Basophils (Bld) [#/Vol] 0.1 10*3/uL 0.0-0.2 [facility] Basophils/100 WBC Auto (Bld) Ordered By: Elizabeth Alvarado on 05-07-2022 Basophils/100 WBC (Bld) 0.7 % . [facility] Bilirubin.total [Mass/volume ] in Serum or PlasmaOrdered By: Elizabeth Alvarado on 05-07-2022 Bilirubin [Mass/Vol] 0.6 mg/dL 0.3-1.2 [facility] Calcium [Mass/volume] in Ser um or PlasmaOrdered By: Elizabeth Alvarado on 05-07-2022 Calcium [Mass/Vol] 9.1 mg/dL 8.2-10.2 [facility] Carbon dioxide, total [Moles /volume] in Serum or PlasmaOrdered By: Elizabeth Alvarado on 05-07-2022 CO2 [Moles/Vol] 28.1 mmol/L 22.0-30.0 [facility] Chloride [Moles/volume] in S hugo or PlasmaOrdered By: Elizabeth Alvarado on 05-07-2022 Chloride [Moles/Vol] 100 mmol/L 95-114 [facility] Cholesterol [Mass/volume] in Serum or PlasmaOrdered By: Elizabeth Alvarado on 05-07-2022 Cholesterol [Mass/Vol] 181 mg/dL 140-200 [facility] Comment on above: Chol less than 200 m g/dl low riskChol 201-239 mg/dl borderline riskChol 240 mg/dl and greater high risk Cholesterol in LDL Calc [Mas s/Vol]Ordered By: Elizabeth Alvarado on 05-07-2022 Cholesterol in LDL [Mass/Vol] 102 mg/dL 0-100 [facility] Comment on above: LDL ATP III CLASSIFI CATIONLDL less than 100 mg/dL OptimalLDL 100-129 mg/dL Near or above optimalLDL 130-159 mg/dL Borderline highLDL 160-189 mg/dL HighLDL greater than 189 mg/dL Very high Cholesterol in VLDL Calc [Ma ss/Vol]Ordered By: Elizabeth Alvarado on 05-07-2022 Cholesterol in VLDL [Mass/Vol] 20 mg/dL [facility] Creatinine and Glomerular fi ltration rate.predicted panel (S/P/Bld)Ordered By: Elizabeth Alvarado on 05-07-2022 Creatinine [Mass/Vol] 0.65 mg/dL 0.44-1.03 [facility] Eosinophils Auto (Bld) [#/Vo l]Ordered By: Elizabeth Alvarado on 05-07-2022 Eosinophils (Bld) [#/Vol] 0.1 10*3/uL 0.0-0.45 [facility] Eosinophils/100 WBC Auto (Bl d)Ordered By: Elizabeth Alvarado on 05-07-2022 Eosinophils/100 WBC (Bld) 1.8 % . [facility] Erythrocyte distribution wid th Auto (RBC) [Ratio]Ordered By: Elizabeth Alvarado on 05-07-2022 Erythrocyte distribution width (RBC) [Ratio] 17.8 % 11.9-15.3 [facility] Estimated glomerular filtrat ion rate (GFR) non- AmericanOrdered By: Elizabeth Alvarado on 05-07-2022 GFR/1.73 sq M.predicted among non-blacks MDRD (S/P/Bld) [Vol rate/Area] > 60 mL/Min [facility] Globulin Calc (S) [Mass/Vol] Ordered By: Elizabeth Alvarado on 05-07-2022 Globulin (S) [Mass/Vol] 3.7 g/dL [facility] Glucose [Mass/volume] in Ser um or PlasmaOrdered By: Elizabeth Alvarado on 05-07-2022 Glucose [Mass/Vol] 137 mg/dL 70-100 [facility] Comment on above: ADA recommended refe rence rangeRandom Glucose Reference Range is dependent on time and content of last meal. Glucose of more than 200 mg/dL in a nonstressed, ambulatory subject supports the diagnosis of Diabetes Mellitus. Hematocrit Auto (Bld) [Volum e fraction]Ordered By: Elizabeth Alvarado on 05-07-2022 Hematocrit (Bld) [Volume fraction] 45.4 % 34.0-46.4 [facility] Hemoglobin [Mass/volume] in BloodOrdered By: Elizabeth Alvarado on 05-07-2022 Hemoglobin (Bld) [Mass/Vol] 14.1 g/dL 11.8-15.4 [facility] Leukocytes [#/volume] correc silverio for nucleated erythrocytes in Blood by Automated counOrdered By: Elizabeth Alvarado on 05-07-2022 WBC corrected for nucl RBC Auto (Bld) [#/Vol] 7.9 10*3/uL 3.8-11.6 [facility] Lymphocytes Auto (Bld) [#/Vo l]Ordered By: Elizabeth Alvarado on 05-07-2022 Lymphocytes (Bld) [#/Vol] 2.4 10*3/uL 1.00-4.8 [facility] Lymphocytes/100 WBC Auto (Bl d)Ordered By: Elizabeth Alvarado on 05-07-2022 Lymphocytes/100 WBC (Bld) 30.9 % . [facility] MCH Auto (RBC) [Entitic mass ]Ordered By: Elizabeth Alvarado on 05-07-2022 MCH (RBC) [Entitic mass] 24.6 pg 24.7-34.3 [facility] MCHC Auto (RBC) [Mass/Vol]Or dered By: Elizabeth Alvarado on 05-07-2022 MCHC (RBC) [Mass/Vol] 31.0 g/dL 32.0-35.0 [facility] MCV Auto (RBC) [Entitic vol] Ordered By: Elizabeth Alvarado on 05-07-2022 MCV (RBC) [Entitic vol] 79.4 fL 80-100 [facility] Monocytes Auto (Bld) [#/Vol] Ordered By: Elizabeth Alvarado on 05-07-2022 Monocytes (Bld) [#/Vol] 0.7 10*3/uL 0.0-0.8 [facility] Monocytes/100 WBC Auto (Bld) Ordered By: Elizabeth Alvarado on 05-07-2022 Monocytes/100 WBC (Bld) 9.3 % . [facility] Neutrophils Auto (Bld) [#/Vo l]Ordered By: Elizabeth Alvarado on 05-07-2022 Neutrophils (Bld) [#/Vol] 4.5 10*3/uL 1.8-7.7 [facility] Neutrophils/100 WBC Auto (Bl d)Ordered By: Elizabeth Alvarado on 05-07-2022 Neutrophils/100 WBC (Bld) 57.3 % . [facility] No Panel InformationOrdered By: Elizabeth Alvarado on 05-07-2022 Estimated GFR () > 60 mL/Min [facility] Comment on above: GFR estimated refere nce range: According to KDOQI guidelines, <60 ml/min/1.73m2 is sufficient to diagnose a patient with chronic kidney disease. Pharmacy Creatinine Clearance (Chem N/A [facility] Nucleated erythrocytes [Pres ence] in Blood by Automated countOrdered By: Elizabeth Alvarado on 05-07-2022 Nucleated RBC Auto Ql (Bld) 0.1 /100{WBC} 0-0.5 [facility] Platelet mean volume Auto (B ld) [Entitic vol]Ordered By: Elizabeth Alvarado on 05-07-2022 Platelet mean volume (Bld) [Entitic vol] 9.4 fL 6.3-10.7 [facility] Platelets Auto (Bld) [#/Vol] Ordered By: Elizabeth Alvarado on 05-07-2022 Platelets (Bld) [#/Vol] 242 10*3/uL 150-450 [facility] Potassium [Moles/volume] in Serum or PlasmaOrdered By: Elizabeth Alvarado on 05-07-2022 Potassium [Moles/Vol] 4.3 mmol/L 3.5-5.1 [facility] Protein [Mass/volume] in Ser um or PlasmaOrdered By: Elizabeth Alvarado on 05-07-2022 Protein [Mass/Vol] 7.6 g/dL 6.1-7.9 [facility] RBC Auto (Bld) [#/Vol]Ordere d By: Elizabeth Alvarado on 05-07-2022 RBC (Bld) [#/Vol] 5.72 10*6/uL 3.60-5.00 [facility] Serum or plasma alanine ulloa otransferase measurement without P-5'-P (enzymatic activiOrdered By: Elizabeth Alvarado on 05-07-2022 ALT No additional P-5'-P [Catalytic activity/Vol] 61 U/L 10-60 [facility] Serum or plasma albumin/glob ulin mass ratioOrdered By: Elizabeth Alvarado on 05-07-2022 Albumin/Globulin [Mass ratio] 1.1 {ratio} [facility] Serum or plasma anion gap de terminationOrdered By: Elizabeth Alvarado on 05-07-2022 Anion gap [Moles/Vol] 11.2 mmol/L 6.0-15.0 [facility] Serum or plasma high density lipoprotein (HDL) cholesterol measurementOrdered By: Elizabeth Alvarado on 05-07-2022 Cholesterol in HDL [Mass/Vol] 58 mg/dL 35-85 [facility] Comment on above: HDL CHOL ATP-III CLA SSIFICATION Cardiovascular RiskHDL > or equal to 60 mg/dL LOWHDL < 40 mg/dL HIGH Serum or plasma total choles terol/high density lipoprotein (HDL) cholesterol mass ratOrdered By: Elizabeth Alvarado on 05-07-2022 Cholesterol.total/Choles terol in HDL [Mass ratio] 3.1 {ratio} <5.0 [facility] Sodium [Moles/volume] in Ser um or PlasmaOrdered By: Elizabeth Alvarado on 05-07-2022 Sodium [Moles/Vol] 135 mmol/L 136-146 [facility] TSH DL <= 0.005 mIU/L QnOrde red By: Elizabeth Alvarado on 01-13-2023 TSH Qn 4.21 m[IU]/L 0.45-5.33 [facility] Triglyceride [Mass/volume] i n Serum or PlasmaOrdered By: Elizabeth Alvarado on 05-07-2022 Triglyceride [Mass/Vol] 103 mg/dL 35-149 [facility] Comment on above: TRIG ATP III CLASSIF ICATIONTRIG less than 150 mg/dL NormalTRIG 150-199 mg/dL Borderline highTRIG 200-500 mg/dL High TRIG greater than 500 mg/dL Very highStandard traceable to the Center for Disease Conrtrol and Prevention (CDC) test method. Urea nitrogen [Mass/volume] in Serum or PlasmaOrdered By: Elizabeth Alvarado on 05-07-2022 Urea nitrogen [Mass/Vol] 14 mg/dL 01-15 [facility] WBC Auto (Bld) [#/Vol]Ordere d By: Elizabeth Alvarado on 05-07-2022 WBC (Bld) [#/Vol] 7.9 10*3/uL 3.8-11.6 [facility] Basophils Auto (Bld) [#/Vol] Ordered By: Tyler Villeda on 04-13-2022 Basophils (Bld) [#/Vol] 0.1 10*3/uL 0.0-0.2 [facility] Basophils/100 WBC Auto (Bld) Ordered By: Tyler Villeda on 04-13-2022 Basophils/100 WBC (Bld) 0.6 % . [facility] C reactive protein [Mass/vol ume] in Serum or PlasmaOrdered By: Tyler Villeda on 04-13-2022 CRP [Mass/Vol] 2.1 mg/dL 0.0-1.0 [facility] Eosinophils Auto (Bld) [#/Vo l]Ordered By: Tyler Villeda on 04-13-2022 Eosinophils (Bld) [#/Vol] 0.2 10*3/uL 0.0-0.45 [facility] Eosinophils/100 WBC Auto (Bl d)Ordered By: Tyler Villeda on 04-13-2022 Eosinophils/100 WBC (Bld) 2.0 % . [facility] Erythrocyte distribution wid th Auto (RBC) [Ratio]Ordered By: Tyler Villeda on 04-13-2022 Erythrocyte distribution width (RBC) [Ratio] 17.6 % 11.9-15.3 [facility] Erythrocyte sedimentation ra te by Photometric methodOrdered By: Tyler Villeda on 04-13-2022 ESR Photometric method (Bld) [Velocity] 54 mm/hr 0-29 [facility] Hematocrit Auto (Bld) [Volum e fraction]Ordered By: Tyler Villeda on 04-13-2022 Hematocrit (Bld) [Volume fraction] 44.4 % 34.0-46.4 [facility] Hemoglobin [Mass/volume] in BloodOrdered By: Tyler Villeda on 04-13-2022 Hemoglobin (Bld) [Mass/Vol] 14.3 g/dL 11.8-15.4 [facility] Leukocytes [#/volume] correc silverio for nucleated erythrocytes in Blood by Automated counOrdered By: Tyler Villeda on 04-13-2022 WBC corrected for nucl RBC Auto (Bld) [#/Vol] 8.6 10*3/uL 3.8-11.6 [facility] Lymphocytes Auto (Bld) [#/Vo l]Ordered By: Tyler Villeda on 04-13-2022 Lymphocytes (Bld) [#/Vol] 2.9 10*3/uL 1.00-4.8 [facility] Lymphocytes/100 WBC Auto (Bl d)Ordered By: Tyler Villeda on 04-13-2022 Lymphocytes/100 WBC (Bld) 33.6 % . [facility] MCH Auto (RBC) [Entitic mass ]Ordered By: Tyler Villeda on 04-13-2022 MCH (RBC) [Entitic mass] 24.9 pg 24.7-34.3 [facility] MCHC Auto (RBC) [Mass/Vol]Or dered By: Tyler Villeda on 04-13-2022 MCHC (RBC) [Mass/Vol] 32.2 g/dL 32.0-35.0 [facility] MCV Auto (RBC) [Entitic vol] Ordered By: Tyler Villeda on 04-13-2022 MCV (RBC) [Entitic vol] 77.4 fL 80-100 [facility] Monocytes Auto (Bld) [#/Vol] Ordered By: Tyler Villeda on 04-13-2022 Monocytes (Bld) [#/Vol] 0.9 10*3/uL 0.0-0.8 [facility] Monocytes/100 WBC Auto (Bld) Ordered By: Tyler Villeda on 04-13-2022 Monocytes/100 WBC (Bld) 10.0 % . [facility] Neutrophils Auto (Bld) [#/Vo l]Ordered By: Tyler Villeda on 04-13-2022 Neutrophils (Bld) [#/Vol] 4.6 10*3/uL 1.8-7.7 [facility] Neutrophils/100 WBC Auto (Bl d)Ordered By: Tyler Villeda on 04-13-2022 Neutrophils/100 WBC (Bld) 53.8 % . [facility] Nucleated erythrocytes [Pres ence] in Blood by Automated countOrdered By: Tyler Villeda on 04-13-2022 Nucleated RBC Auto Ql (Bld) 0.1 /100{WBC} 0-0.5 [facility] Platelet mean volume Auto (B ld) [Entitic vol]Ordered By: Tyler Villeda on 04-13-2022 Platelet mean volume (Bld) [Entitic vol] 9.1 fL 6.3-10.7 [facility] Platelets Auto (Bld) [#/Vol] Ordered By: Tyler Villeda on 04-13-2022 Platelets (Bld) [#/Vol] 296 10*3/uL 150-450 [facility] RBC Auto (Bld) [#/Vol]Ordere d By: Tyler Villeda on 04-13-2022 RBC (Bld) [#/Vol] 5.73 10*6/uL 3.60-5.00 [facility] WBC Auto (Bld) [#/Vol]Ordere d By: Tyler Villeda on 04-13-2022 WBC (Bld) [#/Vol] 8.6 10*3/uL 3.8-11.6 [facility] Serum or plasma follitropin measurement (units/volume)Ordered By: Elizabeth Alvarado on 12-03-2021 Follitropin Qn 18.3 m[IU]/mL [facility] Comment on above: FEMALE NORMALS (JUDIE ENOPAUSE) MID-FOLLICULAR PHASE: 3.9-8.8 mIU/mL MID-CYCLE PEAK: 4.5-22.5 mIU/mL MID-LUTEAL PHASE: 1.8-5.1 mIU/mL FEMALE NORMALS (POSTMENOPAUSE): 16.7-113.6 mIU/mL MALE NORMALS: 1.3-19.3 mIU/mL TSH DL <= 0.005 mIU/L QnOrde red By: Elizabeth Alvarado on 12-03-2021 TSH Qn 4.23 m[IU]/L 0.45-5.33 [facility] Total estrogen measurementOr dered By: Elizabeth Alvarado on 12-03-2021 Estrogen [Mass/Vol] 83 pg/mL . [facility] Comment on above: Prepubertal < 40 Female Cycle: 1-10 Days 16 - 328 11-20 Days 34 - 501 21-30 Days 48 - 350 Post-Menopausal 40 - 244 Performed at: [facility] [id number] Production Ski Repairer: Virgie Isaac MD, Phone: [phone] Coding Summary.on 01-26-2019 Coding Summary. 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 PYMT PROC APC STAT DESCRIPTION DOCTOR NAME DATE 52825 8509 J1 Tenotomy, percutaneous, Thuan Travis DPM 01/24/2019 Achilles tendon (separate procedure); general anesthesia RT Right side (used to identify procedures performed on the right side of the body) 48445 Anesthesia for Shahab Almanzar Jr., DO 01/24/2019 [...] Revised Date Saved: 01/26/2019 11:32 am Normal [facility] Inpatient Patient Summaryon 01-24-2019 Inpatient Patient Summary [facility] Clinical Discharge Instructions PERSON INFORMATION Name: GEETA SHELTON PHYSICIANS Admitting Physician: Thuan Travis DPM Attending Physician: Thuan Travis DPM PCP: Nichole Caballero Discharge Diagnosis: Comment: PATIENT EDUCATION INFORMATION Instructions: Post Op Patient Instructions - FT (Custom); Foot Cryocuff Patient Instructions - FT (Custom); Brown - Post Operative Instructions (Revised 12/20/13) (Custom) ([id number]) Medication Leaflets: Follow up: MEDICATION LIST Comment: Normal [facility] Lyteson 01-24-2019 Anion gap [Moles/Vol] 14 mmol/L Normal 6-16 [facility] Comment on above: Performed By: #### 2 197772, 9791017, 4868811, 74292844, 9675366, 9503166 #### [facility] [address] [place] [address] Chloride [Moles/Vol] 107 mmol/L Normal 101-111 [facility] Comment on above: Performed By: #### 2 748417, 0769510, 6719615, 36138314, 2999122, 6206748 #### [facility] [address] [place] [address] CO2 [Moles/Vol] 23 mmol/L Normal 21-31 [facility] Comment on above: Performed By: #### 2 051555, 8328627, 7418811, 43380301, 5801880, 3287834 #### [facility] [address] [place] [facility] [address] Potassium [Moles/Vol] 4.9 mmol/L Normal 3.5-5.3 [facility] Comment on above: Performed By: #### 2 667576, 7884114, 6910758, 55343278, 9691473, 9180973 #### [facility] [address] [place] [address] Sodium [Moles/Vol] 139 mmol/L Normal 135-145 [facility] Comment on above: Performed By: #### 2 742868, 8484837, 9121542, 76635899, 9549404, 7251595 #### [facility] [address] [place] [address] Main OR Intraoperative Recor don 01-24-2019 Main OR Intraoperative Record IntraOp Document Type FT Summary Primary Physician: Thuan Travis DPM Finalized Date/Time: 01/24/19 11:33:24 Pt. Name: GEETA SHELTON/Sex: 1970 Female Med Rec #: [id number] Physician: Thuan Travis DPM Financial #: [id number] Pt. Type: A Room/Bed: [facility] Admit/Disch: 01/24/19 07:58:48 - Institution: Case Times [...] Cheryl Role Performed Anesthesiologist Surgeon - Primary FOOTWEAR STITCHER Civil Estimator Time In 01/24/19 08:48:00 01/24/19 09:00:00 01/24/19 [...] Zuly Duarte CST, Prashant Panda Role Performed Sewer Builder - Primary Sewer Builder - Other Scrub - Primary Time In [...] AGUILAR, CNOR, Alpa AGUILAR, Zuly Luna, Gerald DEPUTY K 9, R, Gerald QUIROZ, Prashant Panda Outcomes Met? [...] to transfer/transport General Comments: REPORT GIVEN TO DESIGN SPECIALISTRN. Cy PRIDE RN Dressing/Packing FT Pre-Care Text: [...] safely administered during the perioperative period For [employer] please see scanned medication reconcilliation form for medications used at the field during the procedure. Temperature Control Entry 1 Temperature Control BLANKET MISTRAL AIR Quantity 1 Aid TORSO [[id number]][F] Fluid/Abernathy Unit Mistral warming system Setting HIGH/43 Body Site Upper anterior torso Last Modified By: Kallie Gunter RN 01/24/19 08:46:43 Case Comments Finalized By: Maye Silverio CST Document Signatures Signed By: Kallie Gunter RN 01/24/19 09:26 Maye Silverio CST 01/24/19 11:33 Normal [facility] Main OR PACU I Recordon Main OR PACU I Record PACU Phase I Docum ent Type FT Summary Primary Physician: Thuan Travis DPM Finalized Date/Time: 01/24/19 10:08:45 Pt. Name: GEETA SHELTON/Sex: 1970 Female Med Rec #: [id number] Physician: Thuan Travis DPM Financial #: [id number] Pt. Type: A Room/Bed: Admit/Disch: 01/24/19 07:58:48 [...] By: Swathi Carr RN 01/24/19 10:08 Normal [facility] Main OR PACU II Recordon Main OR PACU II Record PACU Phase II Doc ument Type FT Summary Primary Physician: Thuan Travis DPM Finalized Date/Time: 01/24/19 13:09:21 Pt. Name: GEETA SHELTON/Sex: 1970 Female Med Rec #: [id number] Physician: Thuan Travis DPM Financial #: [id number] Pt. Type: Kaylin Room/Bed: Admit/Disch: 01/24/19 07:58:48 [...] By: Keeley Putnam LPN 01/24/19 13:09 Normal [facility] Main OR Preoperative Recordo n 01-24-2019 Main OR Preoperative Record PreOp Document Type FT Summary Primary Physician: Thuan Travis DPM Finalized Date/Time: 01/24/19 09:12:07 Pt. Name: GEETA SHELTON/Sex: 1970 Female Med Rec #: [id number] Physician: Thuan Travis DPM Financial #: [id number] Pt. Type: A Room/Bed: [facility]/01 Admit/Disch: 01/24/19 07:58:48 - Institution: Case Times [...] By: Kallie Gunter RN 01/24/19 09:12 Normal [facility] Operative Reporton 9 Operative Report Date of [...] first postoperative visit. Sania Pantoja Dictated: 01/24/2019 #[id number] Typed: 01/24/2019 #[id number] cc: Thuan Travis D.P.M. [facility] Comment on above: Result Comment: Elec tronically Signed By: Thuan Travis DPM\.br\Date and Time Signed: 01/24/19 10:24 EDT Patient Education - Texton 1 Patient Education - Text (Inserted Image . Unable to display) [place], [place] Thuan Travis DPM, FACFAS POST OPERATIVE [...] feel free to call the doctor at: [phone] or [phone] Travis paged. ___ Patient signature Date ___ Dr. Anand Sauer DPM, FACFAS Date Revised: 06-02 [facility] Progress Note-Physicianon Progress Note-Physician Patient: [...] 1 ml. Complications: None. Anesthesia type: General. [facility] Comment on above: Result Comment: Elec tronically Signed By: Thuan Travis DPM\.br\Date and Time Signed: 01/24/19 09:27 EDT Coding Summary.on 01-12-2019 Coding Summary. CODING DATE: 019 [facility] STATUS: Home (Routine DC) PAYOR: Medicare ADMIT [...] Olivarez CphT Date Saved: 01/12/2019 11:10 am [facility] BUNon 01-11-2019 Urea nitrogen [Mass/Vol] 29 mg/dL High 5-21 [facility] Comment on above: Performed By: #### 2 589386, 4031415, 8773746, 36490825, 3125287, 2398356 #### [facility] [address] [place] [address] CBC w/Indiceson 01-11-2019 Erythrocyte distribution width (RBC) [Ratio] 16.1 % High 10.9-14.2 [facility] Comment on above: Performed By: #### 1 7935010, 7966101, 9191016, 7679200, 6379236 #### [facility] [address] [place] [address] Hematocrit (Bld) [Volume fraction] 42.1 % Normal 34.0-46.0 [facility] Comment on above: Performed By: #### 1 3964172, 7023793, 4458367, 7441771, 8227418 #### [facility] [address] [place] [address] Hemoglobin (Bld) [Mass/Vol] 13.8 g/dL Normal 12.0-16.0 [facility] Comment on above: Performed By: #### 1 1179003, 5288960, 5979962, 9236761, 5800702 #### [facility] [address] [place] [address] MCH (RBC) [Entitic mass] 25.8 pg Low 27.0-34.0 [facility] Comment on above: Performed By: #### 1 7519697, 4949341, 5400072, 5502960, 7798822 #### [facility] [address] [place] [address] MCHC (RBC) [Mass/Vol] 32.8 g/dL Low 33.3-35.7 [facility] Comment on above: Performed By: #### 1 3527570, 1119484, 4944492, 9242786, 0237677 #### [facility] [address] [place] [address] MCV (RBC) [Entitic vol] 78.5 fL Low 80.0-100.0 [facility] Comment on above: Performed By: #### 1 6299240, 6422537, 0297791, 4690843, 3135235 #### [facility] [address] [place] [address] Platelet mean volume (Bld) [Entitic vol] 9.9 fL Normal 6.4-10.8 [facility] Comment on above: Performed By: #### 1 3269450, 7781115, 9306276, 8754806, 7532362 #### [facility] [address] [place] [address] Platelets (Bld) [#/Vol] 283.0 E9/L Normal 150. 0-500. 0 [facility] Comment on above: Performed By: #### 1 7548688, 6619972, 2435684, 7399958, 7591683 #### [facility] [address] [place] [address] RBC (Bld) [#/Vol] 5.4 E12/L Normal 4.3-5.9 [facility] Comment on above: Performed By: #### 1 1173044, 3523547, 1505416, 6671632, 7304049 #### [facility] [address] [place] [address] WBC corrected for nucl RBC Auto (Bld) [#/Vol] 8.6 E9/L Normal 4.0-11.0 [facility] Comment on above: Performed By: #### 1 0841772, 2028781, 9070242, 3860060, 5003913 #### [facility] [address] [place] [address] Creatinineon 01-11-2019 Creatinine [Mass/Vol] 1.0 mg/dL Normal 0.5-1.3 [facility] Comment on above: Performed By: #### 2 852158, 0313115, 3294037, 49904901, 7403577, 0291968 #### [facility] [address] [place] [address] Glucoseon 01-11-2019 Glucose [Mass/Vol] 95 mg/dL Normal 55-199 [facility] Comment on above: Performed By: #### 1 4677016, 0353307, 7704062, 4885132, 1630613 #### [facility] [address] [place] [address] eGFRon 01-11-2019 GFR/1.73 sq M predicted among blacks MDRD (S/P/Bld) [Vol rate/Area] mL/min/{1.73_m2} Normal >=59 [facility] Comment on above: Order Comment: Order added by Discern Expert. Result Comment: eGFR is race adjusted. AA=. Performed By: #### 2 675653, 4874529, 6628900, 37225682, 3613707, 9052203 #### [facility] [address] [place] [address] GFR/1.73 sq M predicted among non-blacks MDRD (S/P/Bld) [Vol rate/Area] 59 mL/min/1.73 m2 Normal >=59 [facility] Comment on above: Order Comment: Order added by Discern Expert. Result Comment: Cap Coverer stefanie kidney disease could be indicated at eGFR's of less than 60 mL/min/1.73m2. Kidney failure is indicated at less than 15 mL/min/1.73m2. Performed By: #### 2 872277, 2101775, 9075573, 44089654, 2536252, 8587051 #### [facility] [address] [place] [address] Coding Summary.on 12-15-2018 Coding Summary. CODING DATE: 019 FINAL [facility] STATUS: Home (Routine DC) PAYOR: [...] CphT Date Saved: 12/15/2018 01:36 pm Normal [facility] BUNon 12-14-2018 Urea nitrogen [Mass/Vol] 19 mg/dL Normal 5-21 [facility] Comment on above: Performed By: #### 2 138232, 9022465, 6540556, 88002146, 3993704, 1838224 #### [facility] [address] [place] [address] CBC w/Indiceson 12-14-2018 Erythrocyte distribution width (RBC) [Ratio] 17.1 % High 10.9-14.2 [facility] Comment on above: Performed By: #### 2 714066, 5980484, 8053201, 04462069, 4405245, 7650853 #### [facility] [address] [place] [address] Hematocrit (Bld) [Volume fraction] 41.5 % Normal 34.0-46.0 [facility] Comment on above: Performed By: #### 2 701852, 7144686, 3835001, 70163410, 1741716, 0781330 #### [facility] [address] [place] [address] Hemoglobin (Bld) [Mass/Vol] 13.2 g/dL Normal 12.0-16.0 [facility] Comment on above: Performed By: #### 2 117655, 8530128, 4439611, 11322853, 0514312, 8778735 #### [facility] [address] [place] [address] MCH (RBC) [Entitic mass] 25.0 pg Low 27.0-34.0 [facility] Comment on above: Performed By: #### 2 482486, 5222978, 2066894, 06184820, 0820115, 9842434 #### [facility] [address] [place] [address] MCHC (RBC) [Mass/Vol] 31.7 g/dL Low 33.3-35.7 [facility] Comment on above: Performed By: #### 2 426923, 4170816, 7273163, 30848573, 0841151, 4556847 #### [facility] [address] [place] [address] MCV (RBC) [Entitic vol] 78.7 fL Low 80.0-100.0 [facility] Comment on above: Performed By: #### 2 101428, 9597115, 1606084, 19963438, 9051518, 4925041 #### [facility] [address] [place] [address] Platelet mean volume (Bld) [Entitic vol] 9.4 fL Normal 6.4-10.8 [facility] Comment on above: Performed By: #### 2 009228, 1471662, 8675303, 27023748, 0493576, 2006425 #### [facility] [address] [place] [address] Platelets (Bld) [#/Vol] 268.0 E9/L Normal 150. 0-500. 0 [facility] Comment on above: Performed By: #### 2 562820, 0119606, 4513420, 69253943, 5281831, 4296710 #### [facility] [address] [place] [address] RBC (Bld) [#/Vol] 5.3 E12/L Normal 4.3-5.9 [facility] Comment on above: Performed By: #### 2 739057, 4864549, 6984726, 40507519, 3168655, 3204780 #### [facility] [address] [place] [address] WBC corrected for nucl RBC Auto (Bld) [#/Vol] 10.6 E9/L Normal 4.0-11.0 [facility] Comment on above: Performed By: #### 2 088782, 6723151, 0712889, 46449183, 6552866, 3478790 #### [facility] [address] [place] [address] Creatinineon 12-14-2018 Creatinine [Mass/Vol] 0.7 mg/dL Normal 0.5-1.3 [facility] Comment on above: Performed By: #### 2 429903, 2168635, 0777303, 93032543, 4657526, 0378779 #### [facility] [address] [place] [address] Glucoseon 12-14-2018 Glucose [Mass/Vol] 138 mg/dL Normal 55-199 [facility] Comment on above: Performed By: #### 2 984957, 3418048, 7155201, 15300254, 3360668, 9143184 #### [facility] [address] [place] [address] Lyteson 12-14-2018 Anion gap [Moles/Vol] 17 mmol/L High 6-16 [facility] Comment on above: Performed By: #### 2 789912, 1426907, 4632199, 43033598, 8539514, 2225786 #### [facility] [address] [place] [address] Chloride [Moles/Vol] 95 mmol/L Low 101-[address] [facility] Comment on above: Performed By: #### 2 762273, 5113925, 8521543, 79554045, 4520049, 9601224 #### [facility] [address] [place] [address] CO2 [Moles/Vol] 26 mmol/L Normal 21-31 [facility] Comment on above: Performed By: #### 2 658616, 7596774, 6417195, 55493312, 1902298, 0137095 #### [facility] [address] [place] [address] Potassium [Moles/Vol] 3.9 mmol/L Normal 3.5-5.3 [facility] Comment on above: Performed By: #### 2 015777, 2735134, 9614440, 84348681, 8441016, 4914091 #### [facility] [address] [place] [address] Sodium [Moles/Vol] 134 mmol/L Low 135-145 [facility] Comment on above: Performed By: #### 2 834843, 6416333, 5401322, 41489876, 5711902, 3279737 #### [facility] [address] [place] [address] XR Chest 2 Viewson 9 XR Chest [...] MD Transcribed by: MAGEN Technologist: CC Normal [facility] eGFRon 12-14-2018 GFR/1.73 sq M predicted among blacks MDRD (S/P/Bld) [Vol rate/Area] mL/min/{1.73_m2} Normal >=59 [facility] Comment on above: Order Comment: Order added by Discern Expert. Result Comment: eGFR is race adjusted. AA=. Performed By: #### 2 649363, 8873443, 8538554, 66233131, 3321002, 9572565 #### [facility] [address] [place] [address] GFR/1.73 sq M predicted among non-blacks MDRD (S/P/Bld) [Vol rate/Area] mL/min/{1.73_m2} Normal >=59 [facility] Comment on above: Order Comment: Order added by Discern Expert. Result Comment: Cap Coverer stefanie kidney disease could be indicated at eGFR's of less than 60 mL/min/1.73m2. Kidney failure is indicated at less than 15 mL/min/1.73m2. Performed By: #### 2 842409, 7628020, 2740908, 67903730, 5499737, 0222925 #### [facility] [address] [place] [address] Vital Signs Date Time Vital Sign Value Performing Clinician Facility 09-30-2023 09:36-0400 Body height 165.1 cm PHYSICIAN NO [facility] 09-30-2023 09:36-0400 Body mass index (BMI) [Ratio] 46.2 kg/m2 PHYSICIAN NO [facility] 09-30-2023 09:36-0400 Body temperature 97.6 [degF] PHYSICIAN NO [facility] 09-30-2023 09:36-0400 Body weight 126.09 kg PHYSICIAN NO [facility] 09-30-2023 09:36-0400 Diastolic blood pressure 85 mm[Hg] PHYSICIAN NO [facility] 09-30-2023 09:36-0400 Heart rate 87 /min PHYSICIAN NO [facility] 09-30-2023 09:36-0400 Respiratory rate 20 /min PHYSICIAN NO [facility] 09-30-2023 09:36-0400 SaO2% (BldA) [Mass fraction] 98 % PHYSICIAN NO [facility] 09-30-2023 09:36-0400 Systolic blood pressure 139 mm[Hg] PHYSICIAN NO [facility] 03-02-2023 10:45-0500 Body height 165.1 cm Tyler Jean Other [employer] Other 03-02-2023 10:45-0500 Body mass index (BMI) [Ratio] 44.76 kg/m2 Tyler Jean Other [employer] Other 03-02-2023 10:45-0500 Body temperature 96.7 [degF] Tyler Jean Other [employer] Other 03-02-2023 10:45-0500 Body weight 122.02 kg Tyler Jean Other [employer] Other 03-02-2023 10:45-0500 Diastolic blood pressure 82 mm[Hg] Tyler Mcnamaratyler Other [employer] Other 03-02-2023 10:45-0500 Respiratory rate 18 /min Tyler Mcnamaratyler Other [employer] Other 03-02-2023 10:45-0500 SaO2% (BldA) [Mass fraction] 96 % Tyler Mcnamaratyler Other [employer] Other 03-02-2023 10:45-0500 Systolic blood pressure 136 mm[Hg] Tyler Ted Other [facility] [employer] Other 09-21-2022 09:11-0400 Body weight 128.72 kg PERFORMANCE IMPROVEMENT SPECIALIST Elizabeth Myerholtz Work Phone: [facility] 09-21-2022 09:11-0400 Diastolic blood pressure 91 mm[Hg] PERFORMANCE IMPROVEMENT SPECIALIST Elizabeth Myerholtz Work Phone: [facility] 09-21-2022 09:11-0400 Heart rate 88 /min PERFORMANCE IMPROVEMENT SPECIALIST Elizabeth Myerholtz Work Phone: [facility] 09-21-2022 09:11-0400 Respiratory rate 20 /min PERFORMANCE IMPROVEMENT SPECIALIST Elizabeth Myerholtz Work Phone: [facility] 09-21-2022 09:11-0400 SaO2% (BldA) [Mass fraction] 96 % PERFORMANCE IMPROVEMENT SPECIALIST Elizabeth Myerholtz Work Phone: [facility] 09-21-2022 09:11-0400 Systolic blood pressure 145 mm[Hg] PERFORMANCE IMPROVEMENT SPECIALIST Elizabeth Myerholtz Work Phone: [facility] 08-16-2022 13:57-0400 Body temperature 98 [degF] PERFORMANCE IMPROVEMENT SPECIALIST Elizabeth Myerholtz Work Phone: [facility] 08-16-2022 13:42-0400 Body height 165.1 cm RHEA Alvarado Work Phone: [facility] 07-03-2022 08:14-0500 Body temperature 97.9 [degF] Acosta Schafer MD Work Phone: [facility] [employer] 07-03-2022 08:14-0500 Diastolic blood pressure 70 mm[Hg] Acosta Schafer MD Work Phone: [facility] 07-03-2022 08:14-0500 Heart rate 83 /min Acosta Schafer MD Work Phone: [facility] 07-03-2022 08:14-0500 Respiratory rate 18 /min Acosta Schafer MD Work Phone: [facility] [employer] 07-03-2022 08:14-0500 SaO2% (BldA) [Mass fraction] 98 % Acosta cShafer MD Work Phone: [facility] 07-03-2022 08:14-0500 Systolic blood pressure 129 mm[Hg] Acosta Schafer MD Work Phone: [facility] 07-02-2022 09:45-0500 Body mass index (BMI) [Ratio] 50.66 kg/m2 Acosta Schafer MD Work Phone: [employer] [facility] 07-02-2022 09:45-0500 Body weight 129.73 kg Acosta Schafer MD Work Phone: [employer] [facility] 06-24-2022 11:20-0500 Body height 160 cm Juan Rn [employer] [facility] 06-24-2022 11:20-0500 Body mass index (BMI) [Ratio] 50.79 kg/m2 Juan Rn [facility] 06-24-2022 11:20-0500 Body temperature 97.9 [degF] Juan Rn [facility] [employer] 06-24-2022 11:20-0500 Body weight 130.05 kg Juan Rn JULIO DAMIR [facility] 06-24-2022 11:20-0500 Diastolic blood pressure 87 mm[Hg] Mloz [facility] 06-24-2022 11:20-0500 Heart rate 73 /min Mloz Rn JULIO RE[facility] 06-24-2022 11:20-0500 Respiratory rate 16 /min Mloz Rn JULIO DAMIR [facility] 06-24-2022 11:20-0500 SaO2% (BldA) [Mass fraction] 98 % Mloz Rn JULIO [facility] 06-24-2022 11:20-0500 Systolic blood pressure 142 mm[Hg] Mloz Rn JULIO [facility] 05-18-2022 08:46-0500 Body height 165.1 cm Acosta Schafer MD Work Phone: [facility] Work Phone: 05-18-2022 08:46-0500 Body mass index (BMI) [Ratio] 45.93 kg/m2 Acosta Schafer MD Work Phone: [facility] Work Phone: 05-18-2022 08:46-0500 Body surface area Derived from formula 2.27 m2 Acosta Schafer MD Work Phone: [facility] Work Phone: 05-18-2022 08:46-0500 Body weight 125.19 kg Acosta Schafer MD Work Phone: [facility] Work Phone: Encounters Encounter Date Encounter Type Care Provider Facility Start: 09-30-2023 End: 09-30-2023 ambulatory PHYSICIAN NO [facility] Work Phone: Start: 09-30-2023 End: 09-30-2023 Patient encounter procedure PHYSICIAN NO [facility] Physician [facility] Work Phone: Start: 09-30-2023 Registered Recurring PHYSICIAN AKASH [facility] Work Phone: Start: 09-30-2023 ambulatory Lorrie Baig Facility: [facility] Start: 09-07-2023 End: 09-07-2023 Patient encounter procedure PHYSICIAN AKASH [facility] [place] Work Phone: Start: 09-07-2023 End: 09-07-2023 ambulatory Elizabeth Alvarado Facility:[facility] Start: 08-24-2023 End: 08-24-2023 Patient encounter procedure PERFORMANCE IMPROVEMENT SPECIALIST Elizabeth Alvarado Work Phone: [facility] Start: 08-24-2023 End: 08-24-2023 ambulatory Elizabeth Alvarado [facility] Work Phone: Start: 08-24-2023 End: 08-24-2023 Departed Referred PERFORMANCE IMPROVEMENT SPECIALIST Elizabeth Alvarado Work Phone: [facility] Start: 05-10-2023 End: 05-10-2023 Patient encounter procedure PERFORMANCE IMPROVEMENT SPECIALIST Elizabeth Alvarado Work Phone: [facility] Work Phone: Start: 05-10-2023 End: 05-10-2023 ambulatory PERFORMANCE IMPROVEMENT SPECIALIST Elizabeth Alvarado Work Phone: [facility] Work Phone: Start: 03-02-2023 End: 03-02-2023 ambulatory Tyler Jean Other [employer] Other Start: 03-02-2023 Office outpatient vi sit 25 minutes Tyler Jean [facility] Start: 02-14-2023 End: 02-14-2023 ambulatory PERFORMANCE IMPROVEMENT SPECIALIST Elizabeth Alvarado Work Phone: [facility] Work Phone: Start: 02-14-2023 End: 02-14-2023 Patient encounter procedure RHEA Alvarado Work Phone: [facility] [place] Work Phone: Start: 01-26-2023 [facility] visit new patient Sindy rubio [facility] Start: 01-26-2023 End: 01-26-2023 ambulatory RHEA Alvarado Work Phone: [employer] Other Start: 01-26-2023 End: 01-26-2023 Patient encounter procedure RHEA Alvarado Work Phone: [facility] [place] Work Phone: Start: 12-29-2022 Patient encounter procedure Acosta Schafer MD Work Phone[facility] Work Phone: Start: 12-29-2022 ambulatory Provider Pending Facili ty:[id number] Start: 11-25-2022 End: 11-25-2022 Patient encounter procedure RHEA Alvarado Work Phone: [facility] Work Phone: Start: 09-22-2022 Patient encounter procedure Acosta Schafer MD Work Phone: [facility] Work Phone: Start: 09-22-2022 ambulatory Provider Pending Facili ty:[id number] Start: 09-21-2022 End: 09-21-2022 ambulatory RHEA Alvarado Work Phone: [facility] Work Phone: Start: 09-21-2022 End: 09-21-2022 Registered Recurring RHEA Alvarado Work Phone: [facility] Work Phone: Start: 08-11-[address] Acosta Schafer Facility:[id number] Start: 08-04-2022 End: 08-04-2022 Discharged Recurring RHEA Fraserjackie Alvarado Work Phone: [facility] [address] Start: 07-23-2022 End: 07-23-2022 ambulatory RHEA Hurley Christiano Work Phone: [facility] Work Phone: Start: 07-23-2022 End: 07-23-2022 Patient encounter procedure RHEA Johnson Christiano Work Phone: [facility] [place] Work Phone: Start: 07-16-2022 Telephone encounter Acosta Crews MD Work Phone: [facility] Work Phone: Start: 07-14-2022 Patient encounter procedure Acosta Schafer MD Work Phone: [facility] Work Phone: Start: 07-14-[address] Acosta Alva yaneli Yeoman Facility:[id number] Start: 07-07-2022 AUDIT Acosta sow MD Work Phone: 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 Merrill Rawls as [facility] Facility:[id number] Start: 06-25-2022 Encounter for other preprocedural examination Mr. Merrill Hernandez [facility] Start: 06-24-2022 End: 06-29-2022 ambulatory ACOSTA SCHAFER [facility] Start: 06-24-2022 End: 06-28-2022 Subsequent hospital visit by physician Juan Mott 2 Rn [facility] Pre-Admission Testing Start: 05-18-2022 Patient encounter procedure Acosta Schafer MD Work Phone[facility] Work Phone: Start: 05-18-[address] Acosta Subramanianfield Facility:[id number] Start: 05-07-2022 End: 05-07-2022 Patient encounter procedure RHEA Alvarado Work Phone: [facility] Work Phone: Start: 04-13-2022 End: 04-13-2022 ambulatory RHEA Alvarado Work Phone: [facility] Work Phone: Start: 04-13-2022 End: 04-13-2022 Patient encounter procedure RHEA Alvarado Work Phone: [facility] [place] Start: 12-17-2021 End: 12-17-2021 Patient encounter procedure RHEA Alvarado Work Phone: [facility]-Nuc Med [place] Start: 12-07-2021 End: 12-07-2021 Patient encounter procedure REHA Alvarado Work Phone: [facility]-Ultrasound [place] Start: 12-03-2021 End: 12-03-2021 Departed Referred RHEA Alvarado Work Phone: [facility] Procedures Date [...] TO MG FOR LOW K Arya Coronado PERFORMANCE IMPROVEMENT SPECIALIST - [facility] Work Phone: Start: 07-03-2022 Blood count complete automated Arya Coronado PERFORMANCE IMPROVEMENT SPECIALIST - [facility] Work Phone: Start: 07-02-2022 Dup-scan xtr veins unilateral/limited study Carlos A Hou DO Work Phone: Start: 07-02-2022 BASIC METABOLIC PANE L W/ REFLEX TO MG FOR LOW K Arya Coronado PERFORMANCE IMPROVEMENT SPECIALIST - [facility] Work Phone: Start: 07-02-2022 Blood count complete automated Arya Coronado PERFORMANCE IMPROVEMENT SPECIALIST - [facility] Work Phone: Start: 07-01-2022 Radiologic examinati on knee 1/2 views Adjyoan Coronado PERFORMANCE IMPROVEMENT SPECIALIST - [facility] Work Phone: Start: 07-01-2022 End: 07-01-2022 [...] Start: 12-17-2021 Radionuclide three-p hase bone study PERFORMANCE IMPROVEMENT SPECIALISTNohelia Alvarado Work Phone: Start: 12-07-2021 US scan of thyroid RHEA Alvarado Work Phone: Start: 02-01-2019 Anesthesia consultation Start: 01-24-2019 Anesthesia consultation Plan of Treatment Date Care Activity Detail Author Start: 06-29-2023 FUV, Provider: Acosta Schafer, Status: Pen, Time: 2:15 PM FUV, Provider: Acosta Schafer, Status: Pen, Time: 2:15 PM [facility] Work Phone: Start: 02-17-2023 Screening for malign ant neoplasm of colon [facility] Start: 12-29-2022 FUV, Provider: Acosta Schafer, Status: Pen, Time: 1:45 PM FUV, Provider: Acosta Schafer, Status: Pen, Time: 1:45 PM [facility] [place] Work Phone: Start: 08-11-2022 FUV, Provider: Acosta Schafer, Status: Pen, Time: 9:45 AM FUV, Provider: Acosta Schafer, Status: Pen, Time: 9:45 AM [facility] [place] Work Phone: Start: 07-23-2022 [facility] Start: 07-14-2022 POV, Provider: Acosta Schafer, Status: Pen, Time: 9:00 AM POV, Provider: Acosta Schafer, Status: Pen, Time: 9:00 AM [facility] [place] Work Phone: Start: 07-01-2022 End: 07-01-2022 Admission to same day surgery center 07/01/2022 Surgery IP Unit Acosta Schafer MD [id number] [place] [address] RIGHT KNEE RIGHT TOTAL KNEE REVISION INSTRUMENTATION ANTONELLA FEMORAL & SCIATIC BLOCK [facility] Comment on above: RIGHT KNEE RIGHT TOT AL KNEE REVISION INSTRUMENTATION ANTONELLA FEMORAL & SCIATIC BLOCK Start: 07-01-2022 End: 07-01-2022 Revj total knee arthrp w/wo algrft 1 component KNEE TOTAL ARTHROPLASTY REVISION Loosening of unicondylar knee replacement (HCC) 07/01/2022 10:50 AM [facility] Start: 07-01-2022 Subsequent hospital visit by physician 07/01/2022 Hospital Encounter IP Unit Acosta Schafer MD [address] [place] [address] [facility] [place] Start: 07-01-2022 [facility]: Acosta Schafer, Status: Pen, Time: 7:00 AM [facility], Provider: Acosta Schafer, Status: Pen, Time: 7:00 AM [facility] [place] Work Phone: Start: 06-25-2022 PREADMIT, Provider: Merrill Alejandro, Status: Pen, Time: 1:45 PM PREADMIT, Provider: Merrill Alejandro, Status: Pen, Time: 1:45 PM [facility] [place] Work Phone: Start: 06-25-2022 [id number], Provider : Natali Tyson, Status: Pen, Time: 1:00 PM [id number], Provider: Natali Tyson, Status: Pen, Time: 1:00 PM [facility] [place] Work Phone: Start: 06-24-2022 Annual Wellness Visi t (AWV) Annual Wellness Visit (AWV) [facility] Start: 12-17-2021 Radionuclide three-p hase bone study NM bone 3 phase [facility] Start: 12-17-2021 End: 12-17-2021 Patient encounter procedure Departed [facility] [place] Start: 12-07-2021 US scan of thyroid US thyroid [facility] Start: 12-07-2021 End: 12-07-2021 Patient encounter procedure Departed [facility]Ul[facility] [place] Start: 11-23-2021 Influenza vaccination Flu vaccine (# 1) [facility] [employer] Start: 05-18-2021 COVID-19 Vaccine (4 - Booster for Moderna series) COVID-19 Vaccine (4 - Booster for Moderna series) [facility] Start: 02-23-2018 Screening for malign ant neoplasm of breast Breast cancer screen [facility] Start: 02-23-2018 Shingles vaccine (1 of 2) Shingles v accine (1 of 2) [facility] [employer] Start: 02-23-2013 Screening for malign ant neoplasm of colon [facility] Start: 2008 Lipid panel Lipids [facility] [employer] Start: 02-23-2003 Diabetes screen Diabetes screen [facility] Start: 02-23-1998 Screening for malign ant neoplasm of cervix [facility] Start: 02-23-1989 Screening for malign ant neoplasm of cervix Pap smear [facility] Start: 02-23-1987 DTaP/Tdap/Td vaccine (1 - Tdap) DTaP/Tdap/Td vaccine ( - Tdap) [facility] Start: 02-23-1986 Hepatitis C screening Hepatitis C sc reen [facility] Start: 02-23-1983 HIV screening HIV screen [facility] Start: 1980 Depression Screen Depression Screen [facility] [employer] Start: 1970 COVID-19 Vaccine (#1) COVID-19 Vacci ne (#1) [facility] [employer] End: 07-04-2022 Basic Metabolic Panel w/ Reflex to MG Basic Metabolic Panel w/ Reflex to MG Lab Routine Daily for 3 Days starting 07/02/2022 until 07/04/2022, 2 completed [facility] [employer] Phone: Comment on above: Daily for 3 Days sta rting 07/02/2022 until 07/04/2022, 2 completed End: 07-04-2022 CBC panel - Blood by Automated count CBC Lab Routine Daily for 3 Days starting 07/02/2022 until 07/04/2022, [address] [facility] [employer] Phone: Comment on above: Daily for 3 Days sta rting 07/02/2022 until 07/04/2022, 2 completed Comprehensive metabo lic 2000 panel - Serum or Plasma [facility] Comprehensive metabo lic 2000 panel - Serum or Plasma [facility] IgA [Mass/volume] in Serum or Plasma [facility] IgG [Mass/volume] in Serum or Plasma [facility] IgM [Mass/volume] in Serum or Plasma [facility] Oxygen therapy [[facility] Data Set] Initiate Oxygen Therapy Protocol Respiratory Care Routine Daily until discontinued starting 07/01/2022 [facility] [employer] Phone: Comment on above: Daily until disconti nued starting 07/01/2022 Spirometry panel Incentive tonja metry Respiratory Care Routine Every 2hr while awake until discontinued starting 07/01/2022 [facility] [employer] Phone: Comment on above: Every 2hr while awak e until discontinued starting 07/01/2022 [facility] Immunizations Immunization Date Immunization Notes Care Provider Maria T otoole 03-16-2016 influenza virus vaccine, unspecified formulation RHEA Alvarado Work Phone: [facility] 03-16-2016 influenza, injectabl e, quadrivalent, preservative free Sindy Davila Other [facility] [employer] Other Payers Date Payer Category Payer Private Health Insurance [id number] 2022 Medicaid [id number] 2022 Medicare [id number] 2022 Private Health Insurance [id number] 2022 Self-pay [id number] 2014 Private Health Insurance [id number] 1968 Unknown [id number] 2.16.840.1.721626.3.579.2. 182 1968 Unknown [id number] 2.16.840.1.365667.3.579.2. 182 1968 Unknown [id number] 2.16.840.1.686835.3.579.2. 356 1968 Unknown [id number] 2.16.840.1.364194.3.579.2. 8 1968 Unknown [id number] 2.16.840.1.301354.3.579.2. 1067 1968 Unknown [id number] 2.16.840.1.854281.3.579.2. 1068 1968 Unknown [id number] 2.16.840.1.829685.3.579.2. 1067 1968 Unknown [id number] 2.16.840.1.211818.3.579.2. 1068 1968 Unknown [id number] 2.16.840.1.030657.3.579.2. 1068 1968 Unknown [id number] 2..840.1.206122.3.579.2. 1068 Medicare [id number] Medicare [place] MediBlue Dual Adv [id number] Unknown [facility] DUAL COMPLETE Unknown [id number] 2.16.840.1.592467.3.579.2. 531 Unknown [id number] 2.16.840.1.795588.3.579.2. 531 Unknown [id number] 2.16.840.1.383529.3.579.2. 531 Unknown [id number] 2.16.840.1.861949.3.579.2. 531 Unknown [id number] 2.16.840.1.371827.3.579.2. 531 Social History Date Type Detail Facility Start: 06-03-2017 End: 09-21-2022 Tobacco smoking status NHIS Never smoked tobacco (finding) [facility] Start: 1970 Sex Assigned At Female F [facility] Start: 06-24-2022 Tobacco use and exposure Smokeless tobacco non-user [employer] Phone: Start: 06-24-2022 End: 07-02-2022 Alcohol intake Current drinker of alcohol (finding) [employer] Phone: Start: 06-24-2022 Alcohol Comment occasional [employer] Phone: Start: 1970 Sex Assigned At Not on file B [employer] Phone: Start: 06-14-2022 End: 06-24-2022 Exposure to SARS-CoV-2 (event) Not sure [employer] Phone: Sex Assigned At Sex Assigned At [facility] [employer] Other Medical Equipment Procedure Code Equipment Code Equipment Origin al Text Equipment Identifier Dates Cement Bioprep S t - [id number] Start: 07-01-2022 Stem Tib L100mm [id number] Knee Tot Stbl Joey Roberta Triathlon - [id number] , [id number] FDA Start: 07-01-2022 Clinical Notes [...] of both lower extremities (ICD-10 - I87.303) [employer] Other 10-04-2023 Evaluation note* Encounter Date Diagnosis [...] Bilateral lower extremity edema (ICD-10 - R60.0) [employer] Other 04-24-2023 Consult note Author [facility] August 16, 2022 3:19pm Note Date/Time August 16, 2022 2:2 0pm [facility] at [address] [address] Hem/Onc Consult Note - OP Signed Patient: Geeta Shelton MR#: [id number] : 1970 Acct:[id number] Age/Sex: 52 / F Type: REG RCR Copies to: Elizabeth Alvarado APRN,TOOL MAKER APPRENTICE Lorrie Baig DO~ HPI Date/Time of Service: Date of Service: 08/16/2022 Time of Service: 14:19 Referring Provider/PCP: Referring Provider: Lorrie Baig DO PCP: Elizabeth Alvarado APRN, RADON INSPECTOR-C - History of Present Illness Reason for [...] and/or blood disorder. No history of thrombosis. [facility] - Medical History Medical History: Medical History (Last Updated 08/13/22 @ 13:21 by Jayla iSmon) Anxiety Asthma Hypertension - Surgical History Surgical [...] Additional comments: Patient: Geeta Shelton MR#: [id number] : 1970 Acct:[id number] Age/Sex: 51 / F ADM Date: 2 Loc: ID Room: Type: [facility] Attending Dr: Tyler Villeda PA-C Copies to: CARLI Noyola Jeffrey S DO~ Ordering Provider: Tyler Villeda PA-C Date of Service: 12/17/21 [facility] bone 3 phase: M25.562, M25.561 Nuclear medicine [...] the knee hardware bilaterally. This may bepostsurgical. ID/ID bone 3 phase IMPRESSION: Intense uptake of [...] for coordination of care (as documented) and [id number] counseling of patient and/or family. Dictated By: Zoey Ramirez APRN DD/ 1419 Signed By: <Electronically signed by RHEA Ramirez> 08/16/22 1519 [facility] Work Phone: 1(315) 148-990803-11-2023 History of Present illness Narrative* Sosa Poon [...] tape after removal as ordered. Patient has [facility] set up. Knee immobilizer sent with [...] Note Facility/Department: [facility]THO TELE [facility] NAME: Geeta Shelton : 1970 (52 y.o.) [...] BLOCK-DEMETRIA performed by Ac[place] Schafer [place] [facility] [place] Chart Reviewed: Yes Restrictions: Restrictions/Precautions: Fall [...] Recommendations: Continue to assess pending progress Goals Wheat Shipper Goals Wheat Shipper Goal 1: Bed mobility with indep Wheat Shipper Goal 2: Functional transfes with indep Wheat Shipper Goal 3: Amb 50ft with 2ww and indep Residential Goal 4: 4 steps with handrail and SBA Residential Goal 5: indep with HEP to improve [...] Therapy Med Surg Daily Treatment Note Facility/Department: [address] ORTHO TELE Room: [place] [address] NAME: Geeta Shelton : 1970 (52 y.o.) [...] Recommendations: Continue to assess pending progress Goals Wheat Shipper Goals Wheat Shipper Goal 1: Bed mobility with indep Residential Goal 2: Functional transfes with indep Wheat Shipper Goal 3: Amb 50ft with 2ww and indep Wheat Shipper Goal 4: 4 steps with handrail and SBA Wheat Shipper Goal 5: indep with HEP to improve LE strength and ROM Patient Goals Patient Goals : to go home PLAN General Plan: 2 times a day 7 days a week Safety Devices Type of Devices: All fall risk precautions in place, Call light within reach, Left in bed, Bed alarm in place, Nurse notified [facility] (6 CLICK) BASIC MOBILITY AM-PAC Inpatient [...] to accomplish the task * Arya Coronado, PERFORMANCE IMPROVEMENT SPECIALIST - TOOL MAKER APPRENTICE - 07/02/2022 9:49 AM EST Progress Note [...] puffs by inhalation with spacer [] Ipratropium [place] 0.02% unit dose by aerosol Ipratropium [place] MDI 2 puffs by inhalation with spacer [] Duoneb (Ipratropium + Albuterol) unit dose by aerosol Ipratropium MDI + Albuterol MDI 2 puffs byinhalation w/spacer MDI to Aerosol [] Albuterol Sulfate MDI Albuterol Sulfate 0.083% unit dose by aerosol [] Levalbuterol MDI 2 puffs by inhalation Levalbuterol 1.25 mg unit dose by aerosol [] Ipratropium [place] MDI by inhalation Ipratropium [place] 0.02% unit dose by aerosol [] Combivent (Ipratropium + Albuterol) MDI by inhalation Duoneb (Ipratropium + Albuterol) unit doseby aerosol Treatment Assessment [Frequency/Schedule]: Change frequency to: NO CHANGE per Protocol, P&T, [facility] Points 0 1 2 3 4 [...] (52 y.o.) CODE STATUS: Full Code Room: [place] [address] Date of Service: 07/01/2022 Patient Diagnosis(es): Loosening [...] Ambulation Assistance: Independent Transfer Assistance: Independent Active Hazardous Substances Scientist: Yes Mode of Transportation: Car OBJECTIVE: Orientation Status: Orientation Overall Orientation Status: Within Functional Limits Orientation Level: Oriented X4;Oriented to place;Oriented to time;Oriented to situation;Oriented toperson Observation: Observation/Palpation Posture: Good Observation: right knee incision with bandage and knee immobilizer in place Cognition Status: Cognition Overall Cognitive Status: [facility] Cognition Comment: Follows commands consistently Perception Status: Perception Overall Perceptual Status: [facility] Vision and Hearing Status: Vision Vision Exceptions: [...] 6 complexities Assistance / Modification: Mod A [facility] (Six Click) Self care Score How [...] How much help for eating meals?: None [facility] Inpatient Daily Activity Raw Score: 19 AM-[facility] Inpatient ADL T-Scale Score : 40.22 ADL [...] Physical Therapy Med Surg Initial Assessment Facility/Department: [address] TELE Room: [place] [address] NAME: Geeta Shelton : 1970 (52 y.o.) [...] Ambulation Assistance: Independent Transfer Assistance: Independent Active Hazardous Substances Scientist: Yes Mode of Transportation: Car OBJECTIVE: Vision [...] Goals: Patient Goals : to go home Wheat Shipper Goals Residential Goal 1: Bed mobility with indep Residential Goal 2: Functional transfes with indep Residential Goal 3: Amb 50ft with 2ww and indep Residential Goal 4: 4 steps with handrail and SBA Residential Goal 5: indep with HEP to improve [...] accomplish the task documented in this encounterBON [employer]ic[employer] Work Phone: [phone]) 570-763603-09-2023 History of Present illness Narrative* History of [...] she will most likely do this at [facility] [place]. * Physical exam * General: No acute [...] grammatical areas may persist related to the [employer] software * Merrill Alejandro PA-C * . [facility] Work Phone: [phone]) 485-891103-07-2023 Hospital Discharge instructions* Discharge Instructions* Arya Coronado APRN - TOOL MAKER APPRENTICE - 06/29/2022 11:33 AM EST Total Knee [...] remove dressing and start using instructions above [facility] will be removed on post-operative day 14 [...] Hospital Unit/Room#: W268/W268-01 Discharging Unit Phone Number: [phone] Emergency Contact: Extended Emergency Contact Information Primary Emergency Contact: kena travis Bronson Relation: Other Past Surgical History: Past Surgical History: Procedure Laterality Date JOINT REPLACEMENT Left knee PARTIAL KNEE ARTHROPLASTY Right REVISION TOTAL KNEE ARTHROPLASTY Right 07/01/2022 RIGHT KNEE RIGHT TOTAL KNEE REVISION INSTRUMENTATION ANTONELLA FEMORAL & SCIATIC BLOCK-DEMETRIA performed by Acosta Schafer [place] [facility] [place] Immunization History: There is no immunization [...] Assisted Dressing Assisted Toileting Independent Feeding Independent 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 Press Operator Independent Med Delivery whole Wound Care [...] applicable) Name: Address: Dialysis Schedule: Phone: Fax: Automatic Die Cutting Machine Operator/Business Taxes Specialist signature: {Esignature:[id number]} PHYSICIAN SECTION Prognosis: {Prognosis:5627450404} Condition at Discharge: { Patient Condition:508496166} Rehab Potential (if transferring to Rehab): {Prognosis:7025297808} Recommended Labs or Other Treatments After Discharge: Physician Certification: I certify the above information and transfer of Geeta Shelton is necessary for the continuing treatment of the diagnosis listed and that she requires {[facility]} for {GREATER/LESS:476746851} 30 days. Update Admission H&P: {CHP DME Changes in HandP:393944737} PHYSICIAN SIGNATURE: {Esignature:488550732} * Attachments The following attachments cannot be sent through Care Everywhere. * Total Knee Replacement Surgery: General Info ([place]) * Wound: VAC (Vacuum-Assisted Closure) ([place]) [facility] [employer] Phone: 1(653) 663-341103-02-2023 History of Present illness Narrative* Sindy Pelaez RN - 06/24/2022 11:10 AM EST Yellow PAT and Dynahex instruction sheet reviewed with patient, who verbalized understanding. documented in this encounterBON [employer] Phone: evaluation noteNo assessment information available [facility] [email or web address] Work Phone: Evaluation note* Diagnosis Status post revision of total knee replacement, right- Primary Status post revision of total replacement of right knee Acute postoperative pain Other acute postoperative pain documented in this encounter [facility] [employer] Phone: evalyejvos note* Diagnosis Onset Date Resolution Status MGUS (monoclonal gammopathy of unknown significance) acute Microcytosis acute Peripheral neuropathy acute [facility] [email or web address] Work Phone: Evaluation note* Diagnosis Onset Date Resolution Status MGUS (monoclonal gammopathy of unknown significance) acute Microcytosis acute Peripheral neuropathy acute MGUS (monoclonal gammopathy of unknown significance) [facility] Work Phone: History general Narrative - Reported* Type Description Date Medical History asthma Medical History snoring Medical History Allergic Rhinitis Medical History Essential Hypertension Surgical History Revise/Replace left knee joint Surgical History Varicose Veins 2010 Surgical History Right ankle surgery Hospitalization History See above [employer] Other History of Present illness Narrative* New [...] grammatical areas may persist related to the [employer] software * Acosta Schafer MD * Senior Attending Physician * [facility] * [facility] [place] * [facility] Work Phone: History of Present illness [...] grammatical areas may persist related to the [employer] software * Acosta Schafer MD * Senior Attending Physician * [facility] * [facility] [place] * . [facility] Work Phone: History of Present [...] will be re-assessed and goals updated. [facility] Work Phone: History of Present illness Narrative* [...] will be re-assessed and goals updated. [facility] Work Phone: History of Present illness Narrative* [...] grammatical areas may persist related to the [employer] software * Acosta Schafer MD * Senior Attending Physician * [facility] [place] * [facility] Work Phone: History of Present illness [...] grammatical areas may persist related to the [employer] software * Merrill Alejandro PA-C * . [facility] Work Phone: Progress note Author Krzysztof Salazar [facility] September 21, 2022 9:52am Note Date/Time September 21, 2022 9:49a m [facility] at [address] [address] Hem/Onc Follow Up Note - OP Signed Patient: Geeta Shelton MR#: [id number] : 1970 Acct:[id number] Age/Sex: 52 / F Type: REG RCR Copies to: Elizabeth Alvarado APRN,TOOL MAKER APPRENTICE Lorrie Baig,DO~ Date of Service: 09/21/2022 Time [...] for coordination of care (as documented) and [id number] counseling of patient and/or family. [facility] - Medical History Medical History: Medical [...] by Krzysztof Salazar II, DO> 09/21/22 0952 [facility] Work Phone: Reason for visit Narrative* Initial Evaluation, Pre-Op . * [facility] Work [facility]: Reason for visit Narrative* Initial Evaluation, Pre-Op . * Referred by: Dr. Acosta Schafer [facility] Work Phone: Summary Purpose Family History No [...] replacement of right knee Born, Arya Harry, PERFORMANCE IMPROVEMENT SPECIALIST - TOOL MAKER APPRENTICE [address] [place] [address] Referral ID Status Reason Start Date Expiration Date V isits Requested Visits Authorized [id number] Open Specialty Services Required 07/01/2022 07/01/2023 1 1 Question Answer I certify that I, or a nurse practitioner or physician chemical laboratory assistant working with me, had an in-person encounter with the patient and the reason for the home care services is documented in the clinical note on: 07/01/2022 Will the referring provider be the attending provider for home health? [place] of attending provider for home health Dr. [...] section and content) DATE CREATED AUTHOR 02/01/2019 [facility] DATE CREATED AUTHOR AUTHOR'S ORGANIZ ATION 07/04/2022 [facility] DATE CREATED AUTHOR AUTHOR'S ORGANIZ ATION 07/08/2022 [facility] DATE CREATED AUTHOR AUTHOR'S ORGANIZ ATION 12/30/2022 [employer] DATE CREATED AUTHOR AUTHOR'S ORGANIZ ATION 01/09/2023 [facility] DATE CREATED AUTHOR AUTHOR'S ORGANIZ ATION 02/19/2024 [facility] Care Teams (unrecognized sec tion and content) Team Status: Active Member Role Status Dates Elizabeth Alvarado APRN RADON INSPECTOR-C Primary Care Provide r Active Team Status: Inactive Member Role Status Dates Elizabeth Alvarado APRN RADON INSPECTORInés Primar y Care Provider, Attending Provider Active Team Status: Inactive Member Role Status Dates Elizabeth Alvarado APRN RADON INSPECTOR-C Primary Care Provide r Active Lorrie Baig DO Attending Provider Active Team Status: Inactive Member Role Status Dates Elizabeth Alvarado APRN RADON INSPECTOR-C Primary Care Provide r Active KEN CavazosC Attending Provider Active Team Status: Inactive Member Role Status Dates Elizabeth Alvarado APRN RADON INSPECTOR-C Attending Provider A ctive Services [facility] Primary Care Provider Active Otr Flatbed Driver Relationship Specialty Start Date End Date Elizabeth Alvarado PCP - General 07/01/22 Team Status: Active Member Role Status Dates Elizabeth Alvarado APRN RADON INSPECTOR-C Primary Care Provide r Active Zoey Ramirez APRN Attending Provider Active Lorrie Baig DO Referring Provider Active Team Status: Inactive Member Role Status Dates Elizabeth Alvarado APRN RADON INSPECTOR-C Primary Care Provide r Active Acosta Schafer Attending Provider Active Team Status: Inactive Member Role Status Dates Elizabeth Alvarado APRN RADON INSPECTOR-C Primary Care Provide r Active Sindy Davila RADON INSPECTOR-C Attending Provider Active Team Status: Inactive Member Role Status Dates Elizabeth Alvarado APRN RADON INSPECTOR-C Attending Provider A ctive Start: August 24, 2023 End: August 24, 2023 Team Status: Active Member Role Status Dates PHYSICIAN NO FAMILY Primary Care Provider Active Team Status: Inactive Member Role Status Dates Elizabeth Alvarado APRN RADON INSPECTOR-C Attending Provider A ctive Start: September 07, 2023 End: September 07, 2023 PHYSICIAN NO FAMILY Primary Care Provider Active Start: September 07, 2023 End: September 07, 2023 Team Status: Active Member Role Status Dates Elizabeth Alvarado APRN RADON INSPECTOR-C Primary Care Provide r Active Start: September 30, 2023 Zoey Ramirez APRN Active Start: September 30, 2023 Lorrie Baig DO Referring Provider Active Sta rt: September 30, 2023 Krzysztof Salazar II, DO Attending Provider Active Start: September 30, 2023 Team Status: Inactive Member Role Status Dates Elizabeth Alvarado APRN RADON INSPECTOR-C Primary Care Provide r Active Start: September [...] 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 ID REVJ TOTAL KNEE ARTHRP W/WO ALGRFT 1 COMPONENT ID REVJ TOT KNEE ARTHRP FEM&ENTIRE TIBIAL COMPONE RIGHT KNEE RIGHT TOTAL KNEE REVISION INSTRUMENTATION ANTONELLA FEMORAL & SCIATIC BLOCK Acosta Schafer MD [address] [place] [address] [facility] [address] [place] [address] Referral ID Status Reason Start Date Expiration Date Visits Re quested Visits Authorized [id number] 1 1 Ordered Prescriptions (unrec ognized section [...] per pt request)0812 (Given - Provider: Sosa oPon RN)1600 (Due)2200 (Due) aspirin EC tablet 81 [...] Patient/family refused) 0813 (Held - Provider: Sosa Pono RN - Reason: Patient/family refused)2100 (Due) sodium [...] at 250 mL/hr, Administer over 60 Minutes, TEAMSITE DEVELOPER TO O.R., On Renee 07/01/22 at 0845, [...] (NoRateChange - Provider: Yang Mccollum APRN - BUSINESS SOLUTIONS ARCHITECT)1311 (Anesthesia Volume Adjustment - Provider: Yang Mccollum [...] BE BASED ON THE PRIMARY CLINICAL RECORDS. [employer] provides no warranty or guarantee of the accuracy or completeness of information in this document.
== END 2024-06-12 15:05 | disposition home or self-care (01) ==
LOC: WC 15:05
PROVIDERS: Visit Provider Physician Assistant
DX: E11.621 Type 2 diabetes mellitus with foot ulcer (principal); L97.412 Non-pressure chronic ulcer of right heel and midfoot with fat layer exposed
CPT/HCPCS: 11043; G0463

== ENCOUNTER 2024-06-26 15:40 | Outpatient (OUT) | payer MEDICARE, OTHER, MEDICAID, SELFPAY | END 2024-06-26 15:41 | disposition home or self-care (01) | LOC: WC 15:40 | PROVIDERS: Visit Provider Physician Assistant | DX: E11.621 Type 2 diabetes mellitus with foot ulcer (principal); L97.412 Non-pressure chronic ulcer of right heel and midfoot with fat layer exposed | CPT/HCPCS: 11043 ==

== ENCOUNTER 2024-07-18 09:32 | Outpatient (OUT) | payer MEDICARE, OTHER, MEDICAID, SELFPAY ==
--- OUTSIDE RECORDS SUMMARY | 2024-07-18 09:43 | XMS_ITS | CCD ---
Author Organization [facility] Care Team Providers Care Medical Office Receptionist Name Role Phone RHEA Alvarado Attending Provider [employer] [facility], Services Primary Care Provider RHEA Alvarado Primary Care Provide r CARLI Villeda Attending Provider RHEA Alvarado Primary Care Provide r CARLI Villeda Attending Provider Pending Provider Unavailable Unavailable Unavailable Unavailable Unavailable Primary Care Provider Unavailabl e Elizabeth Alvarado Primary Care Provider Unava ilable ACOSTA SCHAFER Admitting Unavailable ACOSTA SCHAFER Attending Unavailable ELIZABETH ALVARADO Primary Care Unavailable STAN GRIFFIN Consulting Unavailable ACOSTA SCHAFER Referring Unavailable Pending, Provider Primary Care Unavailable Dr. Acosta Schafer Attending Un available Unavailable Unavailable RHEA Alvarado Primary Care Provide r RHEA Alvarado Attending Provider DO Lorrie Baig Attending Provider RHEA Alvarado Primary Care Provide r Acosta Schafer Attending Provider RHEA Ramirez Attending Provider DO Lorrie Baig Referring Provider [place], Dr. Acosta Tyson Attending Un available Pending, Provider Primary Care Unavailable [place], Dr. Acosta Tyson Attending Un available Pending, Provider Primary Care Unavailable Alejandro II, Mr. Merrill Hernandez Attending Unav ailable Pending, Provider Primary Care Unavailable [place], Dr. Acosta Tyson Attending Un available Pending, Provider Primary Care Unavailable Pending, Provider Primary Care Unavailable [place], Dr. Acosta Tyson Attending Un available [place], Dr. Acosta Tyson Attending Un available Pending, Provider Primary Care Unavailable Pending, Provider Primary Care Unavailable [place], Dr. Acosta Tyson Attending Un available RHEA Alvarado Primary Care Provide r RHEA Alvarado Attending Provider Sindy Davila Unavailable MARII Davila Attending Provider Tyler Jean Unavailable [phone] RHEA Alvarado Primary Care Provide r MARII Davila Attending Provider RHEA Alvarado Attending Provider RHEA Alvarado Attending Provider NO FAMILY, PHYSICIAN Primary Care Provider Unava ilable RHEA Alvarado Primary Care Provide r DO Lorrie Baig Referring Provider Marie II, DO Krzysztof Prince Attending Provider Elizabeth Alvarado Admitting Unavailab le Elizabeth Alvarado Attending Unavailab le Elizabeth Alvarado Admitting Unavailab le Elizabeth Alvarado Attending Unavailab le Elizabeth Alvarado Primary Care Unavailab le Lorrie Baig Referring Unavailable Elizabeth Alvarado Primary Care Unavailab le Marie II, Krzysztof Prince Admitting Unavaila ble Marie LINDO, Krzysztof Prince Attending Unavaila Elizabeth Calixto Admitting Unavailab Elizabeth Coy Attending Unavailab Elizabeth Coy Admitting Unavailab Elizabeth Coy Attending Unavailab arnav BUSTOS FAMILY, PHYSICIAN Primary Care Unavailable Allergies Allergy Classification Reported Allergen(s) Allergy Type Date of Onset Reaction(s) Facility NSAIDs (1 source) Ibuprofen Drug Allergy [address] Unknown [address] [facility] Penicillins (antibiotic) (2 sources) Penicillin Drug Allergy 4 [facility] (20 sources) Penicillins; Translations: [Penicillins] Allergy to substance [address] [facility] (6 sources) Ibuprofen; Translations: [ibuprofen] Drug Allergy 3 Unknown Reaction [facility] (3 sources) Penicillin V Drug Allergy 3 [facility] (1 source) Penicillin Drug Allergy [address] [facility] Repository Medications Current Medications Medication Drug Class(es) Dates Sig (Normalized) Sig (Original) acetaminophen 325 mg oral tablet (2 sources) Start: 07-01-2022 acetaminophen (TYLENOL) tablet 650 mg Start: 07-01-2022 End: 07-01-2022 acetaminophen (TYLENOL) tabl et 1,000 mg [id number] 200 actuat albuterol 0.09 mg/actuat metered dose [...] Start: 12-23-2021 take 1 tablet by cliff once daily as needed cyclobenzaprine (FLEXERIL) 10 MG tablet Take 10 mg by mouth nightly as needed 0 12/23/2021 Active docusate sodium 50 mg / sennosides, retirement 8.6 mg oral tablet (2 sources) Start: [...] (1 source) Corticosteroid, beta2-Adrenergic Agonist Star t: 10-1 7-20 22 take 2 puff(s) by inhalation at [...] disintegrating tablet 4 mg polyethylene glycol [id number] mg powder for oral solution (1 source) [...] break. Start: 12-03-2021 take 1 capsule by cox monetth once daily venlafaxine (EFFEXOR XR) 75 MG [...] Inhalation, 2 TIMES DAILY, First dose on [facility] 07/01/22 at 2000, Until Discontinued Substituted for [...] Test Name Value Interpretation Reference Range Facility Outside Recordson 06-11-2024 Outside Records [id number] [facility] Rad - Other Radiology Report on 06-11-2024 Rad - Other Radiology Report [id number][facility] [id number] Alanine aminotransferase [En zymatic activity/volume] in Serum or PlasmaOrdered By: Krzysztof Salazar on 09-20-2023 ALT [Catalytic activity/Vol] 33 U/L Normal 7-[address] [facility] Comment on above: Performed By: #### F ER, CMP, CBC, FE and TIBC #### [facility] [address] [place] [address] [place] #### TOMA SERUM, SPE, KAPPA #### [facility] , Albumin [Mass/volume] in Ser um or PlasmaOrdered By: Krzysztof Salazar on 09-20-2023 Albumin [Mass/Vol] 3.8 g/dL Normal 2.9-4.4 [facility] Comment on above: Performed By: #### F ER, CMP, CBC, FE and TIBC #### [facility] [address] [place] [address] [place] #### TOMA SERUM, SPE, KAPPA #### [facility] , Albumin [Mass/volume] in Ser um or Plasma by Bromocresol green (BCG) dye binding methoOrdered By: Krzysztof Salazar on 09-20-2023 Albumin BCG dye [Mass/Vol] 4.2 g/dL 3.5-5.[address] [facility] Alkaline phosphatase [Enzyma tic activity/volume] in Serum or PlasmaOrdered By: Krzysztof Salazar on 09-20-2023 ALP [Catalytic activity/Vol] 79 U/L Normal 34-[address] [facility] Comment on above: Performed By: #### F ER, CMP, CBC, FE and TIBC #### [facility] [address] [place] [address] [place] #### TOMA SERUM, SPE, KAPPA #### [facility] , Aspartate aminotransferase [ Enzymatic activity/volume] in Serum or PlasmaOrdered By: Krzysztof Salazar on 09-20-2023 AST [Catalytic activity/Vol] 30 U/L Normal 13-[address] [facility] Comment on above: Performed By: #### F ER, CMP, CBC, FE and TIBC #### [facility] [address] [place] [address] [place] #### TOMA SERUM, SPE, KAPPA #### [facility] , Automated basophil %Ordered By: Krzysztof Salazar on 09-20-2023 Basophils/100 WBC (Bld) 0.5 % Normal . [facility] Comment on above: Performed By: #### F ER, CMP, CBC, FE and TIBC #### [address] #### TOMA SERUM, SPE, KAPPA #### [facility] , Automated basophil countOrde red By: Krzysztof Salazar on 09-20-2023 Basophils (Bld) [#/Vol] 0.0 10*3/uL Normal 0.0-0.[address] [facility] Comment on above: Result Comment: PERF ORMED BY: [place] [address] PATHOLOGIST AUTOMOTIVE BRAKE ADJUSTER MELODY ELAM M.D. Performed By: #### F ER, CMP, CBC, FE and TIBC #### [address] #### TOMA SERUM, SPE, KAPPA #### [facility] , Automated blood monocyte cou ntOrdered By: Krzysztof Salazar on 09-20-2023 Monocytes (Bld) [#/Vol] 0.7 10*3/uL Normal 0.0-0.[address] [facility] Comment on above: Performed By: #### F ER, CMP, CBC, FE and TIBC #### [address] #### TOMA SERUM, SPE, KAPPA #### [facility] , Automated eosinophil %Ordere d By: Krzysztof Salazar on 09-20-2023 Eosinophils/100 WBC (Bld) 2.6 % Normal . [facility] Comment on above: Performed By: #### F ER, CMP, CBC, FE and TIBC #### [place] [address] [place] #### TOMA SERUM, SPE, KAPPA #### [facility] , Automated eosinophil countOr dered By: Krzysztof Salazar on 09-20-2023 Eosinophils (Bld) [#/Vol] 0.2 10*3/uL Normal 0.0-0.[address] [facility] Comment on above: Performed By: #### F ER, CMP, CBC, FE and TIBC #### [address] #### TOMA SERUM, SPE, KAPPA #### [facility] , Automated monocyte %Ordered By: Krzysztof Salazar on 09-20-2023 Monocytes/100 WBC (Bld) 7.9 % Normal . [facility] Comment on above: Performed By: #### F ER, CMP, CBC, FE and TIBC #### [address] #### TOMA SERUM, SPE, KAPPA #### [facility] , Automated neutrophil %Ordere d By: Krzysztof Salazar on 09-20-2023 Neutrophils/100 WBC (Bld) 64.3 % Normal . [facility] Comment on above: Performed By: #### F ER, CMP, CBC, FE and TIBC #### [address] #### TOMA SERUM, SPE, KAPPA #### [facility] , Bilirubin.total [Mass/volume ] in Serum or PlasmaOrdered By: Krzysztof Salazar on 09-20-2023 Bilirubin [Mass/Vol] 0.6 mg/dL Normal 0.3-1.0 [facility] Comment on above: Performed By: #### F ER, CMP, CBC, FE and TIBC #### [address] #### TOMA SERUM, SPE, KAPPA #### [facility] , Calcium [Mass/volume] in Ser um or PlasmaOrdered By: Krzysztof Salazar on 09-20-2023 Calcium [Mass/Vol] 9.7 mg/dL Normal 8.6-10.3 [facility] Comment on above: Performed By: #### F ER, CMP, CBC, FE and TIBC #### [facility] [address] [place] [address] [place] #### TOMA SERUM, SPE, KAPPA #### [facility] , Carbon dioxide, total [Moles /volume] in Serum or PlasmaOrdered By: Krzysztof Salazar on 09-20-2023 CO2 [Moles/Vol] 32.4 mmol/L High 21.0-31.0 [facility] Comment on above: Performed By: #### F ER, CMP, CBC, FE and TIBC #### [address] #### TOMA SERUM, SPE, KAPPA #### [facility] , Chloride [Moles/volume] in S hugo or PlasmaOrdered By: Krzysztof Salazar on 09-20-2023 Chloride [Moles/Vol] 97 mmol/L Low 98-107 [facility] Comment on above: Performed By: #### F ER, CMP, CBC, FE and TIBC #### [place] [address] [place] #### TOMA SERUM, SPE, KAPPA #### [facility] , Complete Blood Count Auto Di ffon 09-20-2023 Mean Corpuscular HGB Conc 32.7 g/dL Normal 32.0-35.0 [facility] Comment on above: Performed By: #### F ER, CMP, CBC, FE and TIBC #### [facility] [address] [place] [address] [place] #### TOMA SERUM, SPE, KAPPA #### [facility] , NRBC% 0.1 /100{WBC} Normal 0-0.5 [facility] Comment on above: Performed By: #### F ER, CMP, CBC, FE and TIBC #### [place] [address] [place] #### TOMA SERUM, SPE, KAPPA #### [facility] , Comprehensive Metabolic Pane gretel 09-20-2023 Albumin [Mass/Vol] 4.2 g/dL Normal 3.5-5.7 [facility] Comment on above: Performed By: #### F ER, CMP, CBC, FE and TIBC #### [address] #### TOMA SERUM, SPE, KAPPA #### [facility] , Creatinine Clr Calc Pharmacy 143.32 Normal [facility] Comment on above: Performed By: #### F ER, CMP, CBC, FE and TIBC #### [address] #### TOMA SERUM, SPE, KAPPA #### [facility] , GFR/1.73 sq M.predicted MDRD (S/P/Bld) [Vol rate/Area] mL/min/{1.73_m2} Normal [facility] Comment on above: Performed By: #### F ER, CMP, CBC, FE and TIBC #### [address] #### TOMA SERUM, SPE, KAPPA #### [facility] , Creatinine [Mass/volume] in Serum or PlasmaOrdered By: Krzysztof Salazar on 09-20-2023 Creatinine [Mass/Vol] 0.60 mg/dL Normal 0.60-1.20 [facility] Comment on above: Performed By: #### F ER, CMP, CBC, FE and TIBC #### [address] #### TOMA SERUM, SPE, KAPPA #### [facility] , Erythrocyte distribution wid th [Ratio] by Automated countOrdered By: Krzysztof Salazar on 09-20-2023 Erythrocyte distribution width (RBC) [Ratio] 16.7 % High 11.9-15.[address] [facility] Comment on above: Performed By: #### F ER, CMP, CBC, FE and TIBC #### [address] #### TOMA SERUM, SPE, KAPPA #### [facility] , Erythrocytes [#/volume] in B lood by Automated countOrdered By: Krzysztof Salazar on 09-20-2023 RBC (Bld) [#/Vol] 4.86 10*6/uL Normal 3.60-5.00 [facility] Comment on above: Performed By: #### F ER, CMP, CBC, FE and TIBC #### [address] #### TOMA SERUM, SPE, KAPPA #### [facility] , Ferritin [Mass/volume] in Se rum or PlasmaOrdered By: Krzysztof Salazar on 09-20-2023 Ferritin [Mass/Vol] 92.7 ng/mL Normal 11.0-306.8 [facility] Comment on above: Result Comment: PERF ORMED BY: [place] [address] PATHOLOGIST AUTOMOTIVE BRAKE ADJUSTER MELODY ELAM M.D. Performed By: #### F ER, CMP, CBC, FE and TIBC #### [address] #### TOMA SERUM, SPE, KAPPA #### [facility] , Free K+L LT Chains, Qn, Son 09-20-2023 Free [place] Light Chains, S 30.9 mg/L High 3.3-19.4 [facility] Comment on above: Performed By: #### F ER, CMP, CBC, FE and TIBC #### [facility] [address] [place] [address] [place] #### TOMA SERUM, SPE, KAPPA #### [facility] , Free Lambda Light Chains, S 26.4 mg/L High 5.7-26.3 [facility] Comment on above: Performed By: #### F ER, CMP, CBC, FE and TIBC #### [place] [address] [place] #### TOMA SERUM, SPE, KAPPA #### [facility] , [place]/Lambda Ratio, S 1.17 Normal 0.26-1.65 [facility] Comment on above: Result Comment: Perf ormed at: - [facility] [address] [id number] [employer]: Jeyson Duncan PhD, Phone: [phone] PERFORMED BY: [place] [address] PATHOLOGIST AUTOMOTIVE BRAKE ADJUSTER MELODY ELAM M.D. Performed By: #### F ER, CMP, CBC, FE and TIBC #### [address] #### TOMA SERUM, SPE, KAPPA #### [facility] , Glucose [Mass/volume] in Ser um or PlasmaOrdered By: Krzysztof Salazar on 09-20-2023 Glucose [Mass/Vol] 123 mg/dL High 70-100 [facility] Comment on above: ADA recommended refe rence rangeRandom Glucose Reference Range is dependent on time and content of last meal. Glucose of more than 200 mg/dL in a nonstressed, ambulatory subject supports the diagnosis of Diabetes Mellitus. Result Comment: [place] om Glucose Reference Range is dependent on time and content of last meal. Glucose of more than 200 mg/dL in a nonstressed, ambulatory subject supports the diagnosis of Diabetes Mellitus. ADA recommended reference range Performed By: #### F ER, CMP, CBC, FE and TIBC #### [place] [address] [place] #### TOMA SERUM, SPE, KAPPA #### [facility] , Hematocrit [Volume Fraction] of Blood by Automated countOrdered By: Krzysztof Salazar on 09-20-2023 Hematocrit (Bld) [Volume fraction] 38.3 % Normal 34.0-46.[address] [facility] Comment on above: Performed By: #### F ER, CMP, CBC, FE and TIBC #### [place] [id number] [place] #### TOMA SERUM, SPE, KAPPA #### [facility] , Hemoglobin [Mass/volume] in BloodOrdered By: Krzysztof Salazar on 09-20-2023 Hemoglobin (Bld) [Mass/Vol] 12.5 g/dL Normal 11.8-15.[address] [facility] Comment on above: Performed By: #### F ER, CMP, CBC, FE and TIBC #### [facility] [address] [place] [address] [place] #### TOMA SERUM, SPE, KAPPA #### [facility] , IgA [Mass/volume] in Serum o r PlasmaOrdered By: Krzysztof Salazar on 09-20-2023 IgA [Mass/Vol] 409 mg/dL 87-[address] [facility] IgG [Mass/volume] in Serum o r PlasmaOrdered By: Krzysztof Salazar on 09-20-2023 IgG [Mass/Vol] 1704 mg/dL [phone] [facility] IgM [Mass/volume] in Serum o r PlasmaOrdered By: Krzysztof Salazar on 09-20-2023 IgM [Mass/Vol] 122 mg/dL 26-[address] [facility] Comment on above: Performed at: [place] [id number] Director: Jeyson Duncan PhD, Phone: [phone] Immunofixation,Serumon 09-19 Immunofixation, Serum Normal . [facility] Comment on above: Result Comment: No m onoclonality detected. Performed By: #### F ER, CMP, CBC, FE and TIBC #### [facility] [address] [place] [address] [place] #### TOMA SERUM, SPE, KAPPA #### [facility] , Immunoglobulin A, Serum 409 mg/dL High 87-352 [facility] Comment on above: Performed By: #### F ER, CMP, CBC, FE and TIBC #### [facility] [address] [place] [address] [place] #### TOMA SERUM, SPE, KAPPA #### [facility] , Immunoglobulin G 1704 mg/dL High [phone] [facility] Comment on above: Performed By: #### F ER, CMP, CBC, FE and TIBC #### [facility] [address] [place] [address] #### TOMA SERUM, SPE, KAPPA #### [facility] , Immunoglobulin M, Serum 122 mg/dL Normal 26-217 [facility] Comment on above: Result Comment: Perf ormed at: [facility] - [facility] [place] [address] [place], [place] [id number] [employer]ant Machine Processing: Jeyson Duncan PhD, Phone: [phone] Performed By: #### F ER, CMP, CBC, FE and TIBC #### [address] #### TOMA SERUM, SPE, KAPPA #### [facility] , Immunoglobulin light chains. kappa.free [Mass/volume] in SerumOrdered By: Krzysztof Salazar on 09-20-2023 Immunoglobulin light chains.kappa.free (S) [Mass/Vol] 30.9 mg/L 3.3-19.[address] [facility] Immunoglobulin light chains. kappa.free/Immunoglobulin light chains.lambda.free [MassOrdered By: Krzysztof Salazar on 09-20-2023 Immunoglobulin light chains.kappa.free/Immuno globulin light chains.lambda.free (S) [Mass ratio] 1.17 0.26-1.[address] [facility] Comment on above: Performed at: [facility] [id number] [place], [place] [id number] Director: Jeyson Duncan PhD, Phone: [phone] Immunoglobulin light chains. lambda.free [Mass/volume] in Serum or PlasmaOrdered By: Krzysztof Salazar on 09-20-2023 Immunoglobulin light chains.lambda.free [Mass/Vol] 26.4 mg/L 5.7-26.[address] [facility] Iron [Mass/volume] in Serum or PlasmaOrdered By: Krzysztof Salazar on 09-20-2023 Iron [Mass/Vol] 74 ug/dL Normal 50-[address] [facility] Comment on above: Performed By: #### F ER, CMP, CBC, FE and TIBC #### [facility] [address] [place] [address] #### TOMA SERUM, SPE, KAPPA #### [facility] , Iron and TIBC Profileon 08-24 % Iron Saturation 21.5 % Normal 20-50 [facility] Comment on above: Performed By: #### F ER, CMP, CBC, FE and TIBC #### [facility] [address] [place] [address] [place] #### TOMA SERUM, SPE, KAPPA #### [facility] , Total Iron Binding Capacity 344 ug/dL Normal 255-450 [facility] Comment on above: Performed By: #### F ER, CMP, CBC, FE and TIBC #### [facility] [address] [place] [address] [place] #### TOMA SERUM, SPE, KAPPA #### [facility] , Iron binding capacity [Mass/ volume] in Serum or PlasmaOrdered By: Krzysztof Salazar on 09-20-2023 Iron binding capacity [Mass/Vol] 344 ug/dL 255-[address] [facility] Iron saturation [Mass Fracti on] in Serum or PlasmaOrdered By: Krzysztof Salazar on 09-20-2023 Iron saturation [Mass fraction] 21.5 % 20-[address] [facility] Leukocytes [#/volume] correc silverio for nucleated erythrocytes in Blood by Automated counOrdered By: Krzysztof Salazar on 09-20-2023 WBC corrected for nucl RBC Auto (Bld) [#/Vol] 8.5 10*3/uL 3.8-11.[address] [facility] Leukocytes [#/volume] in Blo od by Automated countOrdered By: Krzysztof Salazar on 09-20-2023 WBC (Bld) [#/Vol] 8.5 10*3/uL Normal 3.8-11.6 [facility] Comment on above: Performed By: #### F ER, CMP, CBC, FE and TIBC #### [facility] [address] [place] [address] [place] #### TOMA SERUM, SPE, KAPPA #### [facility] , Lymphocytes [#/volume] in Bl ood by Automated countOrdered By: Krzysztof Salazar on 09-20-2023 Lymphocytes (Bld) [#/Vol] 2.1 10*3/uL Normal 1.00-4.[address] [facility] Comment on above: Performed By: #### F ER, CMP, CBC, FE and TIBC #### [address] #### TOMA SERUM, SPE, KAPPA #### [facility] , Lymphocytes/100 leukocytes i n Blood by Automated countOrdered By: Krzysztof Salazar on 09-20-2023 Lymphocytes/100 WBC (Bld) 24.7 % Normal . [facility] Comment on above: Performed By: #### F ER, CMP, CBC, FE and TIBC #### [place] [address] [place] #### TOMA SERUM, SPE, KAPPA #### [facility] , MCH [Entitic mass] by Automa silverio countOrdered By: Krzysztof Salazar on 09-20-2023 MCH (RBC) [Entitic mass] 25.8 pg Normal 24.7-34.[address] [facility] Comment on above: Performed By: #### F ER, CMP, CBC, FE and TIBC #### [place] [address] [place] #### TOMA SERUM, SPE, KAPPA #### [facility] , MCHC Auto (RBC) [Mass/Vol]Or dered By: Krzysztof Salazar on 09-20-2023 MCHC (RBC) [Mass/Vol] 32.7 g/dL 32.0-35.0 [facility] MCV [Entitic volume] by Auto mated countOrdered By: Krzysztof Salazar on 09-20-2023 MCV (RBC) [Entitic vol] 78.7 fL Low 80-100 [facility] Comment on above: Performed By: #### F ER, CMP, CBC, FE and TIBC #### [address] #### TOMA SERUM, SPE, KAPPA #### [facility] , Neutrophils [#/volume] in Bl ood by Automated countOrdered By: Krzysztof Salazar on 09-20-2023 Neutrophils (Bld) [#/Vol] 5.5 10*3/uL Normal 1.8-7.[address] [facility] Comment on above: Performed By: #### F ER, CMP, CBC, FE and TIBC #### [address] #### TOMA SERUM, SPE, KAPPA #### [facility] , No Panel InformationOrdered By: Krzysztof Salazar on 09-20-2023 Estimated GFR (CKD-EPI) > 60.0 mL/Min [facility] Creatinine Clearance (Chem 143.[address] [facility] Protein Electrophoresis M-Antwan Not observed g/dL Not Observed [facility] Protein Electrophoresis Note See comment . [facility] Comment on above: Protein electrophore sis scan will follow via computer,mail, or fats and oils loader delivery. Serum Immunofixation See comment . [facility] Comment on above: No monoclonality det ected. Nucleated erythrocytes [Pres ence] in Blood by Automated countOrdered By: Krzysztof Salazar on 09-20-2023 Nucleated RBC Auto Ql (Bld) 0.1 /100{WBC} 0-0.[address] [facility] Platelet mean volume [Entiti c volume] in Blood by Automated countOrdered By: Krzysztof Salazar on 09-20-2023 Platelet mean volume (Bld) [Entitic vol] 8.8 fL Normal 6.3-10.[address] [facility] Comment on above: Performed By: #### F ER, CMP, CBC, FE and TIBC #### [place] [address] [place] #### TOMA SERUM, SPE, KAPPA #### [facility] , Platelets [#/volume] in Bloo d by Automated countOrdered By: Krzysztof Salazar on 09-20-2023 Platelets (Bld) [#/Vol] 271 10*3/uL Normal 150-[address] [facility] Comment on above: Performed By: #### F ER, CMP, CBC, FE and TIBC #### [address] #### TOMA SERUM, SPE, KAPPA #### [facility] , Potassium [Moles/volume] in Serum or PlasmaOrdered By: Krzysztof Salazar on 09-20-2023 Potassium [Moles/Vol] 4.4 mmol/L Normal 3.5-5.1 [facility] Comment on above: Performed By: #### F ER, CMP, CBC, FE and TIBC #### [place] [address] [place] #### TOMA SERUM, SPE, KAPPA #### [facility] , Protein Electrophoresis, Ser umon 09-20-2023 Pwzac-8-Zygrsrni 0.3 g/dL Normal 0.0-0.4 [facility] Comment on above: Performed By: #### F ER, CMP, CBC, FE and TIBC #### [facility] [address] [place] [address] [place] #### TOMA SERUM, SPE, KAPPA #### [facility] , Syrqg-4-Tirhkmqb 0.8 g/dL Normal 0.4-1.0 [facility] Comment on above: Performed By: #### F ER, CMP, CBC, FE and TIBC #### [place] [address] [place] #### TOMA SERUM, SPE, KAPPA #### [facility] , Beta Globulin 1.2 g/dL Normal 0.7-1.3 [facility] Comment on above: Performed By: #### F ER, CMP, CBC, FE and TIBC #### [address] #### TOMA SERUM, SPE, KAPPA #### [facility] , Gamma Globulin 1.8 g/dL Normal 0.4-1.8 [facility] Comment on above: Performed By: #### F ER, CMP, CBC, FE and TIBC #### [address] #### TOMA SERUM, SPE, KAPPA #### [facility] , M-Antwan Not Observed Normal Not Observed [facility] Comment on above: Performed By: #### F ER, CMP, CBC, FE and TIBC #### [address] #### TOMA SERUM, SPE, KAPPA #### [facility] , SPE-Note Normal . [facility] Comment on above: Result Comment: Prot ein electrophoresis scan will follow via computer, mail, or fats and oils loader delivery. Performed By: #### F ER, CMP, CBC, FE and TIBC #### [address] #### TOMA SERUM, SPE, KAPPA #### [facility] , Protein [Mass/volume] in Ser um or PlasmaOrdered By: Krzysztof Salazar on 09-20-2023 Protein [Mass/Vol] 7.7 g/dL Normal 6.4-8.9 [facility] Comment on above: Performed By: #### F ER, CMP, CBC, FE and TIBC #### [place] [address] [place] #### TOMA SERUM, SPE, KAPPA #### [facility] , Protein [Mass/Vol] 7.8 g/dL Normal 6.0-8.5 [facility] Comment on above: Performed By: #### F ER, CMP, CBC, FE and TIBC #### [place] [address] [place] #### TOMA SERUM, SPE, KAPPA #### [facility] , Serum globulin measurement ( mass/volume)Ordered By: Krzysztof Salazar on 09-20-2023 Globulin (S) [Mass/Vol] 4.0 g/dL High 2.2-3.9 [facility] Comment on above: Performed By: #### F ER, CMP, CBC, FE and TIBC #### [place] [address] [place] #### TOMA SERUM, SPE, KAPPA #### [facility] , Serum globulin measurement b y calculation (mass/volume)Ordered By: Krzysztof Salazar on 09-20-2023 Globulin (S) [Mass/Vol] 3.5 g/dL Normal F [facility] Comment on above: Performed By: #### F ER, CMP, CBC, FE and TIBC #### [place] [address] [place] #### TOMA SERUM, SPE, KAPPA #### [facility] , Serum or plasma albumin/glob ulin mass ratioOrdered By: Krzysztof Salazar on 09-20-2023 Albumin/Globulin [Mass ratio] 1.2 {ratio} Normal [facility] Comment on above: Performed By: #### F ER, CMP, CBC, FE and TIBC #### [facility] [address] [place] [address] [place] #### TOMA SERUM, SPE, KAPPA #### [facility] , Albumin/Globulin [Mass ratio] 1.0 {ratio} Normal 0.7-1.[address] [facility] Comment on above: Performed By: #### F ER, CMP, CBC, FE and TIBC #### [facility] [address] [place] [address] [place] #### TOMA SERUM, SPE, KAPPA #### [facility] , Serum or plasma alpha 1 glob ulin measurement by electrophoresis (mass/volume)Ordered By: Krzysztof Salazar on 09-20-2023 Alpha 1 globulin Elph [Mass/Vol] 0.3 g/dL 0.0-0.[address] [facility] Serum or plasma alpha 2 glob ulin measurement by electrophoresis (mass/volume)Ordered By: Krzysztof Salazar on 09-20-2023 Alpha 2 globulin Elph [Mass/Vol] 0.8 g/dL 0.4-1.[address] [facility] Serum or plasma anion gap de terminationOrdered By: Krzysztof Salazar on 09-20-2023 Anion gap [Moles/Vol] 11.0 mmol/L Normal 6.0-15.0 [facility] Comment on above: Performed By: #### F ER, CMP, CBC, FE and TIBC #### [facility] [address] [place] [address] #### TOMA SERUM, SPE, KAPPA #### [facility] , Serum or plasma beta globuli n measurement by electrophoresis (mass/volume)Ordered By: Krzysztof Salazar on 09-20-2023 Beta globulin Elph [Mass/Vol] 1.2 g/dL 0.7-1.[address] [facility] Serum or plasma gamma globul in measurement by electrophoresis (mass/volume)Ordered By: Krzysztof Salazar on 09-20-2023 Gamma globulin Elph [Mass/Vol] 1.8 g/dL 0.4-1.[address] [facility] Sodium [Moles/volume] in Ser um or PlasmaOrdered By: Krzysztof Salazar on 09-20-2023 Sodium [Moles/Vol] 136 mmol/L Normal 136-145 [facility] Comment on above: Performed By: #### F ER, CMP, CBC, FE and TIBC #### [facility] [address] [place] [address] [place] #### TOMA SERUM, SPE, KAPPA #### [facility] , Transferrin [Mass/volume] in Serum or PlasmaOrdered By: Krzysztof Salazar on 09-20-2023 Transferrin [Mass/Vol] 246 mg/dL Normal 203-362 [facility] Comment on above: Performed By: #### F ER, CMP, CBC, FE and TIBC #### [address] #### TOMA SERUM, SPE, KAPPA #### [facility] , Urea nitrogen [Mass/volume] in Serum or PlasmaOrdered By: Krzysztof Salazar on 09-20-2023 Urea nitrogen [Mass/Vol] 16 mg/dL Normal 7-[address] [facility] Comment on above: Performed By: #### F ER, CMP, CBC, FE and TIBC #### [address] #### TOMA SERUM, SPE, KAPPA #### [facility] , US pelvic completeon 024 US pelvic complete [facility] [place] [address] [place] [address] Ultrasound Report Signed Patient: Geeta Shelton MR#: [id number] : 1970 Acct:[id number] Age/Sex: 53 / F ADM Date: 09/07/23 Loc: Room: Type: [facility] Attending Dr: STEPHEN Ruiz APRNC Ordering Provider: Elizabeth Alvarado APRN, CNP Date of Service: 09/07/23 US/US transvaginal: Abnormal vaginal bleeding ([id number]) US/US pelvic complete: Abnormal vaginal bleeding Copies [...] seen. Impression dictated by: Jesus Davis Jr., Fede09/07/2023 2:39 PM Dictation Location: [place] [address] Tech: Jessica Saenz Transcribed By: SEJAL 09/07/23 1439 Dictated By: Jesus Davis Jr, DO 09/07/23 1437 Signed By: 09/07/23 1439 Normal [facility] Alanine aminotransferase [En zymatic activity/volume] in Serum or PlasmaOrdered By: Elizabeth Alvarado on 08-24-2023 ALT [Catalytic activity/Vol] 28 U/L Normal 7-[address] [facility] Comment on above: Order Comment: Reaso n for Exam Type 2 diabetes mellitus without complication, without long- Performed By: #### F ER, CMP, CBC, FE and TIBC #### [facility] [address] [place] [address] [place] #### TOMA SERUM, SPE, KAPPA #### [facility] , Albumin [Mass/volume] in Ser um or Plasma by Bromocresol green (BCG) dye binding methoOrdered By: Eilzabeth Alvarado on 08-24-2023 Albumin BCG dye [Mass/Vol] 4.3 g/dL 3.5-5.[address] [facility] Alkaline phosphatase [Enzyma tic activity/volume] in Serum or PlasmaOrdered By: Elizabeth Alvarado on 08-24-2023 ALP [Catalytic activity/Vol] 86 U/L Normal 34-[address] [facility] Comment on above: Order Comment: Reaso n for Exam Type 2 diabetes mellitus without complication, without long- Performed By: #### F ER, CMP, CBC, FE and TIBC #### [facility] [address] [place] [address] [place] #### TOMA SERUM, SPE, KAPPA #### [facility] , Aspartate aminotransferase [ Enzymatic activity/volume] in Serum or PlasmaOrdered By: Elizabeth Alvarado on 08-24-2023 AST [Catalytic activity/Vol] 28 U/L Normal 13-[address] [facility] Comment on above: Order Comment: Reaso n for Exam Type 2 diabetes mellitus without complication, without long- Performed By: #### F ER, CMP, CBC, FE and TIBC #### [facility] [address] #### TOMA SERUM, SPE, KAPPA #### [facility] , Automated basophil %Ordered By: Elizabeth Alvarado on 08-24-2023 Basophils/100 WBC (Bld) 0.7 % Normal . [facility] Comment on above: Order Comment: Reaso n for Exam Type 2 diabetes mellitus without complication, without long- Performed By: #### T SH3 wRFLX, LIPID, CBC, CMP #### [facility] [address] Automated basophil countOrde red By: Elizabeth Alvarado on 08-24-2023 Basophils (Bld) [#/Vol] 0.1 10*3/uL Normal 0.0-0.[address] [facility] Comment on above: Order Comment: Reaso n for Exam Type 2 diabetes mellitus without complication, without long- Result Comment: PERF ORMED BY: [place] [address] PATHOLOGIST [employer]OM[employer]KE ADJUSTER MELODY ELAM M.D. Performed By: #### T SH3 wRFLX, LIPID, CBC, CMP #### [facility] [address] [place] [address] Automated blood monocyte cou ntOrdered By: Elizabeth Alvarado on 08-24-2023 Monocytes (Bld) [#/Vol] 0.8 10*3/uL Normal 0.0-0.[address] [facility] Comment on above: Order Comment: Reaso n for Exam Type 2 diabetes mellitus without complication, without long- Performed By: #### T SH3 wRFLX, LIPID, CBC, CMP #### [facility] [address] Automated eosinophil %Ordere d By: Elizabeth Alvarado on 08-24-2023 Eosinophils/100 WBC (Bld) 3.3 % Normal . [facility] Comment on above: Order Comment: Reaso n for Exam Type 2 diabetes mellitus without complication, without long- Performed By: #### T SH3 wRFLX, LIPID, CBC, CMP #### [facility] [address] Automated eosinophil countOr dered By: Elizabeth Alvarado on 08-24-2023 Eosinophils (Bld) [#/Vol] 0.3 10*3/uL Normal 0.0-0.[address] [facility] Comment on above: Order Comment: Reaso n for Exam Type 2 diabetes mellitus without complication, without long- Performed By: #### T SH3 wRFLX, LIPID, CBC, CMP #### [facility] [address] Automated monocyte %Ordered By: Elizabeth Alvarado on 08-24-2023 Monocytes/100 WBC (Bld) 8.1 % Normal . [facility] Comment on above: Order Comment: Reaso n for Exam Type 2 diabetes mellitus without complication, without long- Performed By: #### T SH3 wRFLX, LIPID, CBC, CMP #### [facility] [address] Automated neutrophil %Ordere d By: Elizabeth Alvarado on 08-24-2023 Neutrophils/100 WBC (Bld) 62.4 % Normal . [facility] Comment on above: Order Comment: Reaso n for Exam Type 2 diabetes mellitus without complication, without long- Performed By: #### T SH3 wRFLX, LIPID, CBC, CMP #### [facility] [address] [place] [address] Bilirubin.total [Mass/volume ] in Serum or PlasmaOrdered By: Elizabeth Alvarado on 08-24-2023 Bilirubin [Mass/Vol] 0.4 mg/dL Normal 0.3-1.0 [facility] Comment on above: Order Comment: Reaso n for Exam Type 2 diabetes mellitus without complication, without long- Performed By: #### F ER, CMP, CBC, FE and TIBC #### [facility] [address] [place] [address] [place] #### TOMA SERUM, SPE, KAPPA #### [facility] , Calcium [Mass/volume] in Ser um or PlasmaOrdered By: Elizabeth Alvarado on 08-24-2023 Calcium [Mass/Vol] 9.4 mg/dL Normal 8.6-10.3 [facility] Comment on above: Order Comment: Reaso n for Exam Type 2 diabetes mellitus without complication, without long- Performed By: #### F ER, CMP, CBC, FE and TIBC #### [address] #### TOMA SERUM, SPE, KAPPA #### [facility] , Carbon dioxide, total [Moles /volume] in Serum or PlasmaOrdered By: Elizabeth Alvarado on 08-24-2023 CO2 [Moles/Vol] 29.2 mmol/L Normal 21.0-31.0 [facility] Comment on above: Order Comment: Reaso n for Exam Type 2 diabetes mellitus without complication, without long- Performed By: #### F ER, CMP, CBC, FE and TIBC #### [facility] [address] [place] [address] [place] #### TOMA SERUM, SPE, KAPPA #### [facility] , Chloride [Moles/volume] in S hugo or PlasmaOrdered By: Elizabeth Alvarado on 08-24-2023 Chloride [Moles/Vol] 96 mmol/L Low 98-107 [facility] Comment on above: Order Comment: Reaso n for Exam Type 2 diabetes mellitus without complication, without long- Performed By: #### F ER, CMP, CBC, FE and TIBC #### [facility] [address] [place] [address] [place] #### TOMA SERUM, SPE, KAPPA #### [facility] , Cholesterol [Mass/volume] in Serum or PlasmaOrdered By: Elizabeth Alvarado on 08-24-2023 Cholesterol [Mass/Vol] 160 mg/dL Normal 140-200 [facility] Comment on above: Chol less [...] CMP, CBC, FE and TIBC #### [facility] [address] #### TOMA SERUM, SPE, KAPPA #### [facility] , Cholesterol in LDL Calc [Mas s/Vol]Ordered By: Elizabeth Alvarado on 08-24-2023 Cholesterol in LDL [Mass/Vol] 78 mg/dL 0-[address] [facility] Comment on above: LDL ATP III CLASSIFI CATIONLDL less than 100 mg/dL OptimalLDL 100-129 mg/dL Near or above optimalLDL 130-159 mg/dL Borderline highLDL 160-189 mg/dL HighLDL greater than 189 mg/dL Very high Cholesterol in VLDL Calc [Ma ss/Vol]Ordered By: Elizabeth Alvarado on 08-24-2023 Cholesterol in VLDL [Mass/Vol] 22 mg/dL [facility] Complete Blood Count Auto Di ffon 08-24-2023 Mean Corpuscular HGB Conc 32.5 g/dL Normal 32.0-35.0 [facility] Comment on above: Order Comment: Reaso n for Exam Type 2 diabetes mellitus without complication, without long- Performed By: #### T SH3 wRFLX, LIPID, CBC, CMP #### [facility] [address] NRBC% 0.2 /100{WBC} Normal 0-0.5 [facility] Comment on above: Order Comment: Reaso n for Exam Type 2 diabetes mellitus without complication, without long- Performed By: #### T SH3 wRFLX, LIPID, CBC, CMP #### [address] Comprehensive Metabolic Pane gretel 08-24-2023 Albumin [Mass/Vol] 4.3 g/dL Normal 3.5-5.7 [facility] Comment on above: Order Comment: Reaso n for Exam Type 2 diabetes mellitus without complication, without long- Performed By: #### F ER, CMP, CBC, FE and TIBC #### [address] #### TOMA SERUM, SPE, KAPPA #### [facility] , GFR/1.73 sq M.predicted MDRD (S/P/Bld) [Vol rate/Area] mL/min/{1.73_m2} Normal [facility] Comment on above: Order Comment: Reaso n for Exam Type 2 diabetes mellitus without complication, without long- Performed By: #### F ER, CMP, CBC, FE and TIBC #### [address] #### TOMA SERUM, SPE, KAPPA #### [facility] , Creatinine [Mass/volume] in Serum or PlasmaOrdered By: Elizabeth Alvarado on 08-24-2023 Creatinine [Mass/Vol] 0.65 mg/dL Normal 0.60-1.20 [facility] Comment on above: Order Comment: Reaso n for Exam Type 2 diabetes mellitus without complication, without long- Performed By: #### F ER, CMP, CBC, FE and TIBC #### [place] [address] [place] #### TOMA SERUM, SPE, KAPPA #### [facility] , Creatinine [Mass/volume] in UrineOrdered By: Elizabeth Alvarado on 08-24-2023 Creatinine (U) [Mass/Vol] 76.0 mg/dL [facility] Comment on above: No reference range e stablished Erythrocyte distribution wid th [Ratio] by Automated countOrdered By: Elizabeth Alvarado on 08-24-2023 Erythrocyte distribution width (RBC) [Ratio] 15.8 % High 11.9-15.[address] [facility] Comment on above: Order Comment: Reaso n for Exam Type 2 diabetes mellitus without complication, without long- Performed By: #### T SH3 wRFLX, LIPID, CBC, CMP #### [facility] [address] Erythrocytes [#/volume] in B lood by Automated countOrdered By: Elizabeth Alvarado on 08-24-2023 RBC (Bld) [#/Vol] 5.06 10*6/uL High 3.60-5.00 [facility] Comment on above: Order Comment: Reaso n for Exam Type 2 diabetes mellitus without complication, without long- Performed By: #### T SH3 wRFLX, LIPID, CBC, CMP #### [facility] [address] Glucose [Mass/volume] in Ser um or PlasmaOrdered By: Elizabeth Alvarado on 08-24-2023 Glucose [Mass/Vol] 92 mg/dL Normal 70-100 [facility] Comment on above: ADA recommended refe rence rangeRandom Glucose Reference Range is dependent on time and content of last meal. Glucose of more than 200 mg/dL in a nonstressed, ambulatory subject supports the diagnosis of Diabetes Mellitus. Order Comment: Reaso n for Exam Type 2 diabetes mellitus without complication, without long- Result Comment: [place] om Glucose Reference Range is dependent on time and content of last meal. Glucose of more than 200 mg/dL in a nonstressed, ambulatory subject supports the diagnosis of Diabetes Mellitus. ADA recommended reference range Performed By: #### F ER, CMP, CBC, FE and TIBC #### [facility] [address] [place] [address] [place] #### TOMA SERUM, SPE, KAPPA #### [facility] , Hematocrit [Volume Fraction] of Blood by Automated countOrdered By: Elizabeth Alvarado on 08-24-2023 Hematocrit (Bld) [Volume fraction] 40.6 % Normal 34.0-46.[address] [facility] Comment on above: Order Comment: Reaso n for Exam Type 2 diabetes mellitus without complication, without long- Performed By: #### T SH3 wRFLX, LIPID, CBC, CMP #### [facility] [address] Hemoglobin [Mass/volume] in BloodOrdered By: Elizabeth Alvarado on 08-24-2023 Hemoglobin (Bld) [Mass/Vol] 13.2 g/dL Normal 11.8-15.[address] [facility] Comment on above: Order Comment: Reaso n for Exam Type 2 diabetes mellitus without complication, without long- Performed By: #### T SH3 wRFLX, LIPID, CBC, CMP #### [facility] [address] Leukocytes [#/volume] correc silverio for nucleated erythrocytes in Blood by Automated counOrdered By: Elizabeth Alvarado on 08-24-2023 WBC corrected for nucl RBC Auto (Bld) [#/Vol] 10.2 10*3/uL 3.8-11.[address] [facility] Leukocytes [#/volume] in Blo od by Automated countOrdered By: Elizabeth Alvarado on 08-24-2023 WBC (Bld) [#/Vol] 10.2 10*3/uL Normal 3.8-11.6 [facility] Comment on above: Order Comment: Reaso n for Exam Type 2 diabetes mellitus without complication, without long- Performed By: #### T SH3 wRFLX, LIPID, CBC, CMP #### [facility] [address] Lipid Panelon 08-24-2023 LDL Cholesterol,Calculated 78 mg/dL Normal 0-100 [facility] Comment on above: [...] ER, CMP, CBC, FE and TIBC #### [address] #### TOMA SERUM, SPE, KAPPA #### [facility] , Triglyceride w/Reflex 112 mg/dL Normal 0-149 [facility] Comment on above: [...] ER, CMP, CBC, FE and TIBC #### [address] #### TOMA SERUM, SPE, KAPPA #### [facility] , VLDL CHOLESTEROL 22 mg/dL Normal [facility] Comment on above: Order Comment: Reaso n for Exam Type 2 diabetes mellitus without complication, without long- Performed By: #### F ER, CMP, CBC, FE and TIBC #### [address] #### TOMA SERUM, SPE, KAPPA #### [facility] , Lymphocytes [#/volume] in Bl ood by Automated countOrdered By: Elizabeth Alvarado on 08-24-2023 Lymphocytes (Bld) [#/Vol] 2.6 10*3/uL Normal 1.00-4.[address] [facility] Comment on above: Order Comment: Reaso n for Exam Type 2 diabetes mellitus without complication, without long- Performed By: #### T SH3 wRFLX, LIPID, CBC, CMP #### [address] Lymphocytes/100 leukocytes i n Blood by Automated countOrdered By: Elizabeth Alvarado on 08-24-2023 Lymphocytes/100 WBC (Bld) 25.5 % Normal . [facility] Comment on above: Order Comment: Reaso n for Exam Type 2 diabetes mellitus without complication, without long- Performed By: #### T SH3 wRFLX, LIPID, CBC, CMP #### [address] MCH [Entitic mass] by Automa silverio countOrdered By: Elizabeth Alvarado on 08-24-2023 MCH (RBC) [Entitic mass] 26.1 pg Normal 24.7-34.[address] [facility] Comment on above: Order Comment: Reaso n for Exam Type 2 diabetes mellitus without complication, without long- Performed By: #### T SH3 wRFLX, LIPID, CBC, CMP #### [address] MCHC Auto (RBC) [Mass/Vol]Or dered By: Elizabeth Alvarado on 08-24-2023 MCHC (RBC) [Mass/Vol] 32.5 g/dL 32.0-35.0 [facility] MCV [Entitic volume] by Auto mated countOrdered By: Elizabeth Alvarado on 08-24-2023 MCV (RBC) [Entitic vol] 80.3 fL Normal 80-100 [facility] Comment on above: Order Comment: Reaso n for Exam Type 2 diabetes mellitus without complication, without long- Performed By: #### T SH3 wRFLX, LIPID, CBC, CMP #### [address] MicroAlb Creat Ratio,Uon Creatinine, Urine (Random) 76.0 mg/dL Normal [facility] Comment on above: Order Comment: Reaso n for Exam Type 2 diabetes mellitus without complication, without long- Result Comment: No r eference range established Performed By: #### F ER, CMP, CBC, FE and TIBC #### [address] #### TOMA SERUM, SPE, KAPPA #### [facility] , Microalbumin/Creatinine Ratio Not performed Normal 0.0-30.0 [facility] Comment on above: Order Comment: Reaso n for Exam Type 2 diabetes mellitus without complication, without long- Result Comment: PERF ORMED BY: [place] [address] PATHOLOGIST [employer]OMOTIVE B[employer]KE ADJUSTER MELODY ELAM M.D. Performed By: #### F ER, CMP, CBC, FE and TIBC #### [address] #### TOMA SERUM, SPE, KAPPA #### [facility] , Microalbumin [Mass/volume] i n UrineOrdered By: Elizabeth Alvarado on 08-24-2023 Albumin DL <= 20 mg/L (U) [Mass/Vol] mg/dL High 0.0-1.[address] [facility] Comment on above: Order Comment: Reaso n for Exam Type 2 diabetes mellitus without complication, without long- Performed By: #### F ER, CMP, CBC, FE and TIBC #### [facility] [address] [place] [address] #### TOMA SERUM, SPE, KAPPA #### [facility] , Neutrophils [#/volume] in Bl ood by Automated countOrdered By: Elizabeth Alvarado on 08-24-2023 Neutrophils (Bld) [#/Vol] 6.4 10*3/uL Normal 1.8-7.[address] [facility] Comment on above: Order Comment: Reaso n for Exam Type 2 diabetes mellitus without complication, without long- Performed By: #### T SH3 wRFLX, LIPID, CBC, CMP #### [facility] [address] [place] [address] No Panel InformationOrdered By: Elizabeth Alvarado on 08-24-2023 Estimated GFR (CKD-EPI) > 60.0 mL/Min [facility] Creatinine Clearance (Chem N/A [facility] Nucleated erythrocytes [Pres ence] in Blood by Automated countOrdered By: Elizabeth Alvarado on 08-24-2023 Nucleated RBC Auto Ql (Bld) 0.2 /100{WBC} 0-0.[address] [facility] Platelet mean volume [Entiti c volume] in Blood by Automated countOrdered By: Elizabeth Alvarado on 08-24-2023 Platelet mean volume (Bld) [Entitic vol] 9.8 fL Normal 6.3-10.[address] [facility] Comment on above: Order Comment: Reaso n for Exam Type 2 diabetes mellitus without complication, without long- Performed By: #### T SH3 wRFLX, LIPID, CBC, CMP #### [facility] [address] [place] [address] Platelets [#/volume] in Bloo d by Automated countOrdered By: Elizabeth Alvarado on 08-24-2023 Platelets (Bld) [#/Vol] 283 10*3/uL Normal 150-[address] [facility] Comment on above: Order Comment: Reaso n for Exam Type 2 diabetes mellitus without complication, without long- Performed By: #### T SH3 wRFLX, LIPID, CBC, CMP #### [address] Potassium [Moles/volume] in Serum or PlasmaOrdered By: Elizabeth Alvarado on 08-24-2023 Potassium [Moles/Vol] 4.3 mmol/L Normal 3.5-5.1 [facility] Comment on above: Order Comment: Reaso n for Exam Type 2 diabetes mellitus without complication, without long- Performed By: #### F ER, CMP, CBC, FE and TIBC #### [address] #### TOMA SERUM, SPE, KAPPA #### [facility] , Protein [Mass/volume] in Ser um or PlasmaOrdered By: Elizabeth Alvarado on 08-24-2023 Protein [Mass/Vol] 7.7 g/dL Normal 6.4-8.9 [facility] Comment on above: Order Comment: Reaso n for Exam Type 2 diabetes mellitus without complication, without long- Performed By: #### F ER, CMP, CBC, FE and TIBC #### [place] [address] [place] #### TOMA SERUM, SPE, KAPPA #### [facility] , Serum globulin measurement b y calculation (mass/volume)Ordered By: Elizabeth Alvarado on 08-24-2023 Globulin (S) [Mass/Vol] 3.4 g/dL Normal [facility] Comment on above: Order Comment: Reaso n for Exam Type 2 diabetes mellitus without complication, without long- Performed By: #### F ER, CMP, CBC, FE and TIBC #### [facility] [address] [place] [address] #### TOMA SERUM, SPE, KAPPA #### [facility] , Serum or plasma albumin/glob ulin mass ratioOrdered By: Elizabeth Alvarado on 08-24-2023 Albumin/Globulin [Mass ratio] 1.3 {ratio} [facility] Comment on above: Order Comment: Reaso n for Exam Type 2 diabetes mellitus without complication, without long- Performed By: #### F ER, CMP, CBC, FE and TIBC #### [facility] [address] [place] [address] [place] #### TOMA SERUM, SPE, KAPPA #### [facility] , Serum or plasma anion gap de terminationOrdered By: Elizabeth Alvarado on 08-24-2023 Anion gap [Moles/Vol] 18.1 mmol/L High 6.0-15.0 [facility] Comment on above: Order Comment: Reaso n for Exam Type 2 diabetes mellitus without complication, without long- Performed By: #### F ER, CMP, CBC, FE and TIBC #### [facility] [address] [place] [address] [place] #### TOMA SERUM, SPE, KAPPA #### [facility] , Serum or plasma high density lipoprotein (HDL) cholesterol measurementOrdered By: Elizabeth Alvarado on 08-24-2023 Cholesterol in HDL [Mass/Vol] 60 mg/dL Normal 23-[address] [facility] Comment on above: HDL CHOL ATP-III [...] CMP, CBC, FE and TIBC #### [facility] [address] [place] [address] #### TOMA SERUM, SPE, KAPPA #### [facility] , Serum or plasma total choles terol/high density lipoprotein (HDL) cholesterol mass ratOrdered By: Elizabeth Alvarado on 08-24-2023 Cholesterol.total/Choles terol in HDL [Mass ratio] 2.7 {ratio} Normal <5.[address] [facility] Comment on above: Order Comment: Reaso n for Exam Type 2 diabetes mellitus without complication, without long- Performed By: #### F ER, CMP, CBC, FE and TIBC #### [facility] [address] [place] [address] [place] #### TOMA SERUM, SPE, KAPPA #### [facility] , Sodium [Moles/volume] in Ser um or PlasmaOrdered By: Elizabeth Alvarado on 08-24-2023 Sodium [Moles/Vol] 139 mmol/L Normal 136-145 [facility] Comment on above: Order Comment: Reaso n for Exam Type 2 diabetes mellitus without complication, without long- Performed By: #### F ER, CMP, CBC, FE and TIBC #### [facility] [address] [place] [address] [place] #### TOMA SERUM, SPE, KAPPA #### [facility] , Thyroid Stim Hormone w/Rflxo n 08-24-2023 Thyroid Stim Hormone w/Rflx 2.40 u[iU]/mL Normal 0.45-5.33 [facility] Comment on above: Order Comment: Reaso n for Exam Type 2 diabetes mellitus without complication, without long- Result Comment: PERF ORMED BY: [place] [address] PATHOLOGIST [employer]OMOTIVE BRAKE ADJUSTER MELODY ELAM M.D. Performed By: #### F ER, CMP, CBC, FE and TIBC #### [facility] [address] [place] [address] [place] #### TOMA SERUM, SPE, KAPPA #### [facility] , Thyrotropin [Units/volume] i n Serum or PlasmaOrdered By: Elizabeth Alvarado on 08-24-2023 TSH Qn 2.40 m[IU]/L 0.45-5.[address] [facility] Triglyceride [Mass/volume] i n Serum or PlasmaOrdered By: Elizabeth Alvarado on 08-24-2023 Triglyceride [Mass/Vol] 112 mg/dL 0-149 [facility] Comment on above: TRIG ATP III CLASSIF ICATIONTRIG less than 150 mg/dL NormalTRIG 150-199 mg/dL Borderline highTRIG 200-500 mg/dL High TRIG greater than 500 mg/dL Very highStandard traceable to the Center for Disease Conrtrol and Prevention (CDC) test method. Urea nitrogen [Mass/volume] in Serum or PlasmaOrdered By: Elizabeth Alvarado on 08-24-2023 Urea nitrogen [Mass/Vol] 17 mg/dL Normal 7-[address] [facility] Comment on above: Order Comment: Reaso n for Exam Type 2 diabetes mellitus without complication, without long- Performed By: #### F ER, CMP, CBC, FE and TIBC #### [facility] [address] [place] [address] [place] #### TOMA SERUM, SPE, KAPPA #### [facility] , Urine microalbumin/creatinin e mass ratioOrdered By: Elizabeth Alvarado on 08-24-2023 Albumin/Creatinine DL <= 20 mg/L (U) [Mass ratio] [facility] Comment on above: Test not performed MM screening mammo BI w/CADo n 05-10-2023 MM screening mammo BI w/CAD [facility] [address] [place] [address] Mammography Report Signed Patient: Geeta Shelton MR#: [id number] : 1970 Acct:[id number] Age/Sex: 53 / F ADM Date: 05/10/23 Loc: CT Room: Type: [facility] Attending Dr: MARII Ruiz APRN Copies to: Elizabeth Alvarado APRN, CNP Ordering [...] Mary Colon M.D.05/10/2023 10:10 AM Dictation Location: [facility] Transcribed By: [facility] 05/10/23 1010 Dictated By: Mary Colon MD 05/10/23 1007 Signed By: 05/10/23 1010 Normal [facility] Established Visit (Orthopaed [...] grammatical areas may persist related to the [employer] software Merrill Alejandro PA-C . Active Problems [...] Dec 29 2022 1:38PM EST (Author) Normal [facility] Established Visit (Orthopaed ic Surgery)on 09-22-2022 [...] grammatical areas may persist related to the [employer] software Acosta Schafer MD Senior Attending Physician [facility] [place] . Active Problems Problems Acute pain of [...] 1 tablet daily Results/Data Xray Knee 3 [id number] 01:48PMAcosta Schafer Test NameResultFlagReference Xray Knee 3 View(Report) FINAL REPORT Interpreted by: ACOSTA SCHAFER BURTON, MD 09/22/22 14:13 Patient Name: GEETA SHELTON STUDY: KNEE; 3 VIEWS; Right; 09/22/2022 1:48 pm INDICATION: pain Z96.659: Status post total knee replacement. ACCESSION NUMBER(S): [id number] ORDERING CLINICIAN: ACOSTA SCHAFER FINDINGS: Right knee [...] Status post total knee replacement. ACCESSION NUMBER(S): [id number] ORDERING CLINICIAN: ACOSTA SCHAFER FINDINGS: Right knee three views. Status post revision total knee replacement components in good position no signs of fracture dislocation or other bony abnormalities Electronically signed by: ACOSTA SCHAFER MD Normal [facility] Radiologyon 09-22-2022 XR Knee 3 Views Normal [facility] Work Phone: Alanine aminotransferase [En zymatic activity/volume] in Serum or PlasmaOrdered By: Zoey Ramirez on 08-17-2022 ALT [Catalytic activity/Vol] 45 U/L 7-[address] [facility] Albumin [Mass/volume] in Ser um or PlasmaOrdered By: Zoey Ramirez on 08-17-2022 Albumin [Mass/Vol] 3.7 g/dL 2.9-4.4 [facility] Albumin [Mass/volume] in Ser um or Plasma by Bromocresol green (BCG) dye binding methoOrdered By: Zoey Ramirez on 08-17-2022 Albumin BCG dye [Mass/Vol] 4.1 g/dL 3.5-5.[address] [facility] Albumin/Protein.total in 24 hour Urine by ElectrophoresisOrdered By: Zoey Ramirez on 08-17-2022 Albumin Elph (24H U) [Mass fraction] 59.9 % . [facility] Alkaline phosphatase [Enzyma tic activity/volume] in Serum or PlasmaOrdered By: Zoey Ramirez on 08-17-2022 ALP [Catalytic activity/Vol] 90 U/L 34-[address] [facility] Aspartate aminotransferase [ Enzymatic activity/volume] in Serum or PlasmaOrdered By: Zoey Ramirez on 08-17-2022 AST [Catalytic activity/Vol] 40 U/L 13-[address] [facility] Basophils Auto (Bld) [#/Vol] Ordered By: Zoey Ramirez on 08-17-2022 Basophils (Bld) [#/Vol] 0.1 10*3/uL 0.0-0.[address] [facility] Basophils/100 WBC Auto (Bld) Ordered By: Zoey Ramirez on 08-17-2022 Basophils/100 WBC (Bld) 0.9 % . [facility] Bilirubin.total [Mass/volume ] in Serum or PlasmaOrdered By: Zoey Ramirez 08-17-2022 Bilirubin [Mass/Vol] 0.4 mg/dL 0.3-1.0 [facility] Calcium [Mass/volume] in Ser um or PlasmaOrdered By: Zoey Ramirez on 08-17-2022 Calcium [Mass/Vol] 9.1 mg/dL 8.6-10.3 [facility] Carbon dioxide, total [Moles /volume] in Serum or PlasmaOrdered By: Zoey Ramirez on 08-17-2022 CO2 [Moles/Vol] 27.9 mmol/L 21.0-31.0 [facility] Chloride [Moles/volume] in S hugo or PlasmaOrdered By: Zoey Ramirez on 08-17-2022 Chloride [Moles/Vol] 100 mmol/L 98-107 [facility] Creatinine [Mass/volume] in Serum or PlasmaOrdered By: Zoey Ramirez on 08-17-2022 Creatinine [Mass/Vol] 0.71 mg/dL 0.60-1.20 [facility] Eosinophils Auto (Bld) [#/Vo l]Ordered By: Zoey Ramirez on 08-17-2022 Eosinophils (Bld) [#/Vol] 0.3 10*3/uL 0.0-0.[address] [facility] Eosinophils/100 WBC Auto (Bl d)Ordered By: Zoey Ramirez on 08-17-2022 Eosinophils/100 WBC (Bld) 3.1 % . [facility] Erythrocyte distribution wid th Auto (RBC) [Ratio]Ordered By: Zoey Ramirez on 08-17-2022 Erythrocyte distribution width (RBC) [Ratio] 16.5 % 11.9-15.[address] [facility] Ferritin [Mass/volume] in Se rum or PlasmaOrdered By: Zoey Ramirez on 08-17-2022 Ferritin [Mass/Vol] 85.3 ng/mL 11.0-306.8 [facility] Folate [Mass/volume] in Seru m or PlasmaOrdered By: Zoey Ramirez on 08-17-2022 Folate [Mass/Vol] 15.1 ng/mL >5.9 [facility] Comment on above: Folate reference ran ge: >5.9 ng/mlThe WHO technical consultation on folate and vitamin [id number] has determined that folate concentrations lessthan 4 ng/ml are considered deficient. Gamma globulin/Protein.total in 24 hour Urine by ElectrophoresisOrdered By: Zoey Ramirez on 08-17-2022 Gamma globulin Elph (24H U) [Mass fraction] 15.3 % . [facility] Globulin Calc (S) [Mass/Vol] Ordered By: Zoey Ramirez on 08-17-2022 Globulin (S) [Mass/Vol] 4.0 g/dL [facility] Glucose [Mass/volume] in Ser um or PlasmaOrdered By: Zoey Ramirez on 08-17-2022 Glucose [Mass/Vol] 142 mg/dL 70-100 [facility] Comment on above: ADA recommended refe rence rangeRandom Glucose Reference Range is dependent on time and content of last meal. Glucose of more than 200 mg/dL in a nonstressed, ambulatory subject supports the diagnosis of Diabetes Mellitus. Hematocrit Auto (Bld) [Volum e fraction]Ordered By: Zoey Ramirez on 08-17-2022 Hematocrit (Bld) [Volume fraction] 41.3 % 34.0-46.[address] [facility] Hemoglobin [Mass/volume] in BloodOrdered By: Zoey Ramirez on 08-17-2022 Hemoglobin (Bld) [Mass/Vol] 13.2 g/dL 11.8-15.[address] [facility] IgA [Mass/volume] in Serum o r PlasmaOrdered By: Zoey Ramirez on 08-17-2022 IgA [Mass/Vol] 498 mg/dL 87-[address] [facility] IgG [Mass/volume] in Serum o r PlasmaOrdered By: Zoey Ramirez on 08-17-2022 IgG [Mass/Vol] 1834 mg/dL 586-[address] [facility] IgM [Mass/volume] in Serum o r PlasmaOrdered By: Zoey Ramirez on 08-17-2022 IgM [Mass/Vol] 124 mg/dL 26-[address] [facility] Comment on above: Performed at: [facility] [address] [id number] Director: Jeyson Duncan PhD, Phone: [phone] Immunofixation for UrineOrde red By: Zoey Ramirez on 08-17-2022 Interpretation Immunofixation (U) [Interp] See comment . [facility] Comment on above: No monoclonality det ected.Performed at: [facility] [address] [id number] Director: Jeyson Duncan PhD, Phone: [phone] Immunoglobulin light chains. kappa.free [Mass/volume] in SerumOrdered By: Zoey Ramirez on 08-17-2022 Immunoglobulin light chains.kappa.free (S) [Mass/Vol] 47.1 mg/L 3.3-19.[address] [facility] Immunoglobulin light chains. kappa.free/Immunoglobulin light chains.lambda.free [MassOrdered By: Zoey Ramirez on 08-17-2022 Immunoglobulin light chains.kappa.free/Immuno globulin light chains.lambda.free (S) [Mass ratio] 1.65 0.26-1.[address] [facility] Comment on above: Performed at: [address] [id number] Director: Jeyson Duncan PhD, Phone: [phone] Immunoglobulin light chains. lambda.free [Mass/volume] in Serum or PlasmaOrdered By: Zoey Ramirez on 08-17-2022 Immunoglobulin light chains.lambda.free [Mass/Vol] 28.6 mg/L 5.7-26.[address] [facility] Iron [Mass/volume] in Serum or PlasmaOrdered By: Zoey Ramirez on 08-17-2022 Iron [Mass/Vol] 41 ug/dL 50-[address] [facility] Iron binding capacity [Mass/ volume] in Serum or PlasmaOrdered By: Zoey Ramirez on 08-17-2022 Iron binding capacity [Mass/Vol] 344 ug/dL 255-[address] [facility] Iron saturation [Mass Fracti on] in Serum or PlasmaOrdered By: Zoey Ramirez on 08-17-2022 Iron saturation [Mass fraction] 11.9 % 20-[address] [facility] Leukocytes [#/volume] correc silverio for nucleated erythrocytes in Blood by Automated counOrdered By: Zoey Ramirez on 08-17-2022 WBC corrected for nucl RBC Auto (Bld) [#/Vol] 9.9 10*3/uL 3.8-11.[address] [facility] Lymphocytes Auto (Bld) [#/Vo l]Ordered By: Zoey Ramirez on 08-17-2022 Lymphocytes (Bld) [#/Vol] 2.8 10*3/uL 1.00-4.[address] [facility] Lymphocytes/100 WBC Auto (Bl d)Ordered By: Zoey Ramirez on 08-17-2022 Lymphocytes/100 WBC (Bld) 28.5 % . [facility] MCH Auto (RBC) [Entitic mass ]Ordered By: Zoey Ramirez on 08-17-2022 MCH (RBC) [Entitic mass] 24.9 pg 24.7-34.[address] [facility] MCHC Auto (RBC) [Mass/Vol]Or dered By: Zoey Ramirez on 08-17-2022 MCHC (RBC) [Mass/Vol] 32.0 g/dL 32.0-35.0 [facility] MCV Auto (RBC) [Entitic vol] Ordered By: Zoey Ramirez on 08-17-2022 MCV (RBC) [Entitic vol] 77.8 fL 80-100 [facility] Monocytes Auto (Bld) [#/Vol] Ordered By: Zoey Ramirez on 08-17-2022 Monocytes (Bld) [#/Vol] 0.6 10*3/uL 0.0-0.[address] [facility] Monocytes/100 WBC Auto (Bld) Ordered By: Zoey Ramirez on 08-17-2022 Monocytes/100 WBC (Bld) 5.9 % . [facility] Neutrophils Auto (Bld) [#/Vo l]Ordered By: Zoey Ramirez on 08-17-2022 Neutrophils (Bld) [#/Vol] 6.1 10*3/uL 1.8-7.[address] [facility] Neutrophils/100 WBC Auto (Bl d)Ordered By: Zoey Ramirez on 08-17-2022 Neutrophils/100 WBC (Bld) 61.6 % . [facility] No Panel InformationOrdered By: Zoey Ramirez on 08-17-2022 Estimated GFR (CKD-EPI) > 60.0 mL/Min [facility] Creatinine Clearance (Chem 122.[address] [facility] Protein Electrophoresis M-Antwan Not observed g/dL Not Observed [facility] Protein Electrophoresis Note See comment . [facility] Comment on above: Protein electrophore sis scan will follow via computer,mail, or fats and oils loader delivery.Performed at: [address] [id number] Director: Jeyson Duncan PhD, Phone: [phone] Serum Immunofixation Comment: . [facility] Comment on above: Presence of monoclon al protein is unclear at this time. Suggestrepeat in 3 to 6 months if clinically indicated. Urine Random Prot Electrophor Note See comment . [facility] Comment on above: Protein electrophore sis scan will follow via computer,mail, or fats and oils loader delivery.Performed at: [address] [id number] Director: Jeyson Duncan PhD, Phone: [phone] Nucleated erythrocytes [Pres ence] in Blood by Automated countOrdered By: Zoey Ramirez on 08-17-2022 Nucleated RBC Auto Ql (Bld) 0.1 /100{WBC} 0-0.[address] [facility] Platelet mean volume Auto (B ld) [Entitic vol]Ordered By: Zoey Ramirez on 08-17-2022 Platelet mean volume (Bld) [Entitic vol] 8.5 fL 6.3-10.[address] [facility] Platelets Auto (Bld) [#/Vol] Ordered By: Zoey Ramirez on 08-17-2022 Platelets (Bld) [#/Vol] 345 10*3/uL 150-[address] [facility] Potassium [Moles/volume] in Serum or PlasmaOrdered By: Zoey Ramirez on 08-17-2022 Potassium [Moles/Vol] 4.7 mmol/L 3.5-5.1 [facility] Protein [Mass/volume] in Ser um or PlasmaOrdered By: Zoey Ramirez on 08-17-2022 Protein [Mass/Vol] 8.1 g/dL 6.4-8.9 [facility] Protein [Mass/Vol] 8.0 g/dL 6.0-8.5 [facility] Protein [Mass/volume] in Uri neOrdered By: Zoey Ramirez on 08-17-2022 Protein (U) [Mass/Vol] 75.0 mg/dL Not Estab. Fi [facility] Protein.monoclonal/Protein.t otal in 24 hour Urine by ElectrophoresisOrdered By: Zoey Ramirez on 08-17-2022 Protein.monoclonal Elph (24H U) [Mass fraction] Not observed % Not Observed [facility] RBC Auto (Bld) [#/Vol]Ordere d By: Zoey Ramirez on 08-17-2022 RBC (Bld) [#/Vol] 5.31 10*6/uL 3.60-5.00 [facility] Serum globulin measurement ( mass/volume)Ordered By: Zoey Ramirez on 08-17-2022 Globulin (S) [Mass/Vol] 4.3 g/dL 2.2-3.9 [facility] Serum or plasma albumin/glob ulin mass ratioOrdered By: Zoey Ramirez on 08-17-2022 Albumin/Globulin [Mass ratio] 1.0 {ratio} [facility] Albumin/Globulin [Mass ratio] 0.9 {ratio} 0.7-1.[address] [facility] Serum or plasma alpha 1 glob ulin measurement by electrophoresis (mass/volume)Ordered By: Zoey Ramirez on 08-17-2022 Alpha 1 globulin Elph [Mass/Vol] 0.3 g/dL 0.0-0.[address] [facility] Serum or plasma alpha 2 glob ulin measurement by electrophoresis (mass/volume)Ordered By: Zoey Ramirez on 08-17-2022 Alpha 2 globulin Elph [Mass/Vol] 0.8 g/dL 0.4-1.[address] [facility] Serum or plasma anion gap de terminationOrdered By: Zoey Ramirez on 08-17-2022 Anion gap [Moles/Vol] 12.8 mmol/L 6.0-15.0 [facility] Serum or plasma beta globuli n measurement by electrophoresis (mass/volume)Ordered By: Zoey Ramirez on 08-17-2022 Beta globulin Elph [Mass/Vol] 1.3 g/dL 0.7-1.[address] [facility] Serum or plasma gamma globul in measurement by electrophoresis (mass/volume)Ordered By: Zoey Ramirez on 08-17-2022 Gamma globulin Elph [Mass/Vol] 1.9 g/dL 0.4-1.[address] [facility] Sodium [Moles/volume] in Ser um or PlasmaOrdered By: Zoey Ramirez on 08-17-2022 Sodium [Moles/Vol] 136 mmol/L 136-145 [facility] Transferrin [Mass/volume] in Serum or PlasmaOrdered By: Zoey Ramirez on 08-17-2022 Transferrin [Mass/Vol] 246 mg/dL 203-362 [facility] Urea nitrogen [Mass/volume] in Serum or PlasmaOrdered By: Zoey Ramirez on 08-17-2022 Urea nitrogen [Mass/Vol] 23 mg/dL 7-[address] [facility] Urine alpha 1 globulin/total protein by electrophoresisOrdered By: Zoey Ramirez on 08-17-2022 Alpha 1 globulin Elph (U) [Mass fraction] 4.5 % . [facility] Urine alpha 2 globulin/total protein ratio by electrophoresisOrdered By: Zoey Ramirez on 08-17-2022 Alpha 2 globulin Elph (U) [Mass fraction] 7.7 % . [facility] Urine beta globulin measurem ent by electrophoresis (mass/volume)Ordered By: Zoey Ramirez on 08-17-2022 Beta globulin Elph (U) [Mass/Vol] 12.6 % . [facility] Vitamin B12 ser/plasOrdered By: Zoey Ramirez on 08-17-2022 Cobalamin (Vitamin B12) [Mass/Vol] 387 pg/mL 180-[address] [facility] WBC Auto (Bld) [#/Vol]Ordere d By: Zoey Ramirez on 08-17-2022 WBC (Bld) [#/Vol] 9.9 10*3/uL 3.8-11.6 [facility] Established Visit (Orthopaed ic Surgery)on 08-11-2022 [...] to do her outpatient physical therapy at [facility]. She has a few visits left. [...] grammatical areas may persist related to the [employer] software Merrill Alejandro PA-C . Active Problems [...] on 07-23-2022 Albumin [Mass/Vol] 3.3 g/dL 2.9-4.4 [facility] Creatine kinase [Enzymatic a ctivity/volume] in Serum or PlasmaOrdered By: Lorrie Baig on 07-23-2022 CK [Catalytic activity/Vol] 51 U/L 30- [facility] Erythrocyte sedimentation ra te by Photometric methodOrdered By: Lorrie Baig on 07-23-2022 ESR Photometric method (Bld) [Velocity] 65 mm/hr 0-[address] [facility] Folate [Mass/volume] in Seru m or PlasmaOrdered By: Lorrie Baig on 07-23-2022 Folate [Mass/Vol] 12.8 ng/mL >5.9 [facility] Comment on above: Folate reference ran ge: >5.9 ng/mlThe WHO technical consultation on folate and vitamin [id number] has determined that folate concentrations lessthan 4 ng/ml are considered deficient. Magnesium [Mass/volume] in S hugo or PlasmaOrdered By: Lorrie Baig on 07-23-2022 Magnesium [Mass/Vol] 1.8 mg/dL 1.9-2.7 [facility] No Panel InformationOrdered By: Lorrie Baig on 07-23-2022 Protein Electrophoresis Interpret See comment . [facility] Comment on above: Faint band in gamma region suspicious for monoclonalimmunoglobulin. This band may represent a benign spike asseen in older people or could be a paraprotein as seen inMultiple Myeloma, Waldenstrom's Macroglobulinemia orLymphoma. Depending on clinical circumstances, furtherdiagnostic studies may include serum immunofixation orserum free light chain quantitation.Performed at: [facility] [address] [id number] Director: Jeyson Duncan PhD, Phone: [phone] Protein Electrophoresis M-Antwan Comment: g/dL Not Observed [facility] Comment on above: ASYMMETRICAL GAMMA Protein Electrophoresis Note See comment . [facility] Comment on above: Protein electrophore sis scan will follow via computer,mail, or fats and oils loader delivery. Phosphate [Mass/volume] in S hugo or PlasmaOrdered By: Lorrie Baig on 07-23-2022 Phosphate [Mass/Vol] 4.5 mg/dL 3.7-7.2 [facility] Protein [Mass/volume] in Ser um or PlasmaOrdered By: Lorrie Baig on 07-23-2022 Protein [Mass/Vol] 7.2 g/dL 6.0-8.5 [facility] Serum globulin measurement ( mass/volume)Ordered By: Lorrie Baig on 07-23-2022 Globulin (S) [Mass/Vol] 3.9 g/dL 2.2-3.9 [facility] Serum or plasma albumin/glob ulin mass ratioOrdered By: Lorrie Baig on 07-23-2022 Albumin/Globulin [Mass ratio] 0.8 {ratio} 0.7-1.[address] [facility] Serum or plasma alpha 1 glob ulin measurement by electrophoresis (mass/volume)Ordered By: Lorrie Baig on 07-23-2022 Alpha 1 globulin Elph [Mass/Vol] 0.3 g/dL 0.0-0.[address] [facility] Serum or plasma alpha 2 glob ulin measurement by electrophoresis (mass/volume)Ordered By: Lorrie Baig on 07-23-2022 Alpha 2 globulin Elph [Mass/Vol] 0.7 g/dL 0.4-1.[address] [facility] Serum or plasma beta globuli n measurement by electrophoresis (mass/volume)Ordered By: Lorrie Baig on 07-23-2022 Beta globulin Elph [Mass/Vol] 1.2 g/dL 0.7-1.[address] [facility] Serum or plasma gamma globul in measurement by electrophoresis (mass/volume)Ordered By: Lorrie Baig on 07-23-2022 Gamma globulin Elph [Mass/Vol] 1.7 g/dL 0.4-1.[address] [facility] Thyrotropin [Units/volume] i n Serum or PlasmaOrdered By: Lorrie Baig on 07-23-2022 TSH Qn 4.76 m[IU]/L 0.45-5.[address] [facility] Vitamin B12 ser/plasOrdered By: Lorrie Baig on 07-23-2022 Cobalamin (Vitamin B12) [Mass/Vol] 358 pg/mL 180-[address] [facility] KNEE 3 VIEWSon 07-14-2022 KNEE 3 VIEWS Patient Name: GEETA SHELTON STUDY: KNEE; 3 VIEWS; Right; 07/14/2022 8:47 am INDICATION: pain Z96.659: Status post total knee replacement. ACCESSION NUMBER(S): [id number] ORDERING CLINICIAN: ACOTSA SCHAFER FINDINGS: Right knee three views. Status post revision type total knee replacement components in good position no signs of fracture dislocation or other bony abnormality dee in the soft tissues anteriorly. Electronically signed by: ACOSTA SCHAFER MD [facility] Post Op (Orthopaedic Surgery )on 07-14-2022 [...] she will most likely do this at [facility] in [place]. Physical exam General: No acute distress and [...] grammatical areas may persist related to the [employer] software Merrill Alejandro PA-C . Active Problems Problems Acute pain of both knees (338.19,719.46) (M25.561,M25.562) Status post total knee replacement (V43.65) (Z96.659) Allergies Medication Penicillins Recorded By: Tarsha Murray; 05/18/2022 8:47:33 AM Current Meds Medication NameInstruction Xarelto 10 MG Oral TabletTake 1 tablet daily Results/Data Xray Knee 3 [id number] 08:47AMSAcosta steward Test NameResultFlagReference Xray Knee 3 View(Report) FINAL REPORT Interpreted by: ACOSTA SCHAFER BURTON, MD 07/14/22 08:49 Patient Name: GEETA SHELTON STUDY: KNEE; 3 VIEWS; Right; 07/14/2022 8:47 am INDICATION: pain Z96.659: Status post total knee replacement. ACCESSION NUMBER(S): [id number] ORDERING CLINICIAN: ACOSTA SCHAFER FINDINGS: Right knee [...] Radiologyon 07-14-2022 XR Knee 3 Views Normal -[facility] Work Phone: Basic Metabolic Panel Reflex Mgon 07-03-2022 Anion gap [Moles/Vol] 10 mmol/L Normal 9-15 [facility] Comment on above: Performed By: #### B MPX #### [facility] [address] [place] [address] Calcium [Mass/Vol] 9.2 mg/dL Normal 8.5-9.9 [facility] Comment on above: Performed By: #### B MPX #### [facility] [address] [place] [address] Chloride [Moles/Vol] 100 mmol/L Normal 95-107 [facility] Comment on above: Performed By: #### B MPX #### [facility] [address] [place] [address] CO2 [Moles/Vol] 27 mmol/L Normal 20-31 [facility] Comment on above: Performed By: #### B MPX #### [facility] [address] [place] [address] Creatinine [Mass/Vol] 0.51 mg/dL Normal 0.50-0.90 [facility] Comment on above: Performed By: #### B MPX #### [facility] [address] [place] [address] GFR >60.0 Normal >60 [facility] Comment on above: Result Comment: Pedi [...] secretion. Performed By: #### B MPX #### [facility] [address] [place] [address] Glucose [Mass/Vol] 132 mg/dL Critically high 70-99 M [facility] Comment on above: Performed By: #### B MPX #### [facility] [address] [place] [address] Magnesium [Moles/Vol] 4.6 mmol/L Normal 3.4-4.9 [facility] Comment on above: Performed By: #### B MPX #### [facility] [address] [place] [address] Sodium [Moles/Vol] 137 mmol/L Normal 135-144 [facility] Comment on above: Performed By: #### B MPX #### [facility] [address] [place] [address] Urea nitrogen [Mass/Vol] 12 mg/dL Normal 6-20 [facility] Comment on above: Performed By: #### B MPX #### [facility] [address] [place] [address] Basic Metabolic Panel w/ Ref hillary to MGon 07-03-2022 Anion gap [Moles/Vol] 10 mmol/L [facility] [employer] Calcium [Mass/Vol] 9.2 mg/dL 8.5 - 9.9 mg/dL [facility] Chloride [Moles/Vol] 100 mmol/L [facility] [employer] CO2 [Moles/Vol] 27 mmol/L [facility] [employer] Creatinine [Mass/Vol] 0.51 mg/dL 0.50 - 0.90 mg/dL [facility] [employer] GFR/1.73 sq M.predicted MDRD (S/P/Bld) [Vol rate/Area] 60 - PINF [facility] Comment on above: Pediatric calculator link https://www.kidney.org/professionals/kdoqi/gfr_calculatorped [...] 132 mg/dL High 70 - 99 mg/dL [facility] Interpretation and review of laboratory results Abnormal [facility] Potassium reflex Magnesium 4.6 [facility] Sodium [Moles/Vol] 137 mmol/L [facility] Urea nitrogen (BldV) [Mass/Vol] 12 mg/dL 6 - 20 mg/dL [facility] CBCon 07-03-2022 Hematocrit (Bld) [Volume fraction] 39.9 % 37.0 - 47.0 % [facility] Hemoglobin (Bld) [Mass/Vol] 12.9 g/dL 12.0 - 16.0 g/dL [facility] Interpretation and review of laboratory results Abnormal [facility] MCH (RBC) [Entitic mass] 25.7 pg Low 27. 0 - 31.3 pg [facility] MCHC (RBC) [Mass/Vol] 32.3 % Low 33.0 - 37.0 % [facility] MCV (RBC) [Entitic vol] 79.6 fL 79.4 - 94.8 fL [facility] Platelet distribution width (Bld) [Ratio] 16.5 % High 11.5 - 14.5 % [facility] Platelets (Bld) [#/Vol] 230 10*3/uL 130 - 400 K/uL [facility] RBC (Bld) [#/Vol] 5.02 10*6/uL [facility] WBC (Bld) [#/Vol] 9.2 10*3/uL 4.8 - 10.8 K/uL [facility] CBC With Platelet No Differe ntialon 07-03-2022 Erythrocyte distribution width (RBC) [Ratio] 16.5 % Critically high 11.5-14.5 [facility] Comment on above: Performed By: #### C BCND #### [facility] [address] [place] [address] Hematocrit (Bld) [Volume fraction] 39.9 % Normal 37.0-47.0 [facility] Comment on above: Performed By: #### C BCND #### [facility] [address] [place] [address] Hemoglobin (Bld) [Mass/Vol] 12.9 g/dL Normal 12.0-16.0 [facility] Comment on above: Performed By: #### C BCND #### [facility] [address] [place] [address] MCH (RBC) [Entitic mass] 25.7 pg Low 27.0-31.3 [facility] Comment on above: Performed By: #### C BCND #### [facility] [address] [place] [address] MCHC 32.3 % Low 33.0-37.0 [facility] Comment on above: Performed By: #### C BCND #### [facility] [address] [place] [address] MCV (RBC) [Entitic vol] 79.6 fL Normal 79.4-94.8 M [facility] Comment on above: Performed By: #### C BCND #### [facility] [address] [place] [address] Platelets (Bld) [#/Vol] 230 10*3/uL Normal 130-400 [facility] Comment on above: Performed By: #### C BCND #### [facility] [address] [place] [address] RBC (Bld) [#/Vol] 5.02 10*6/uL Normal 4.20-5.40 [facility] Comment on above: Performed By: #### C BCND #### [facility] [address] [place] [address] WBC (Bld) [#/Vol] 9.2 10*3/uL Normal 4.8-10.8 [facility] Comment on above: Performed By: #### C BCND #### [facility] [address] [place] [address] Basic Metabolic Panel Reflex Mgon 07-02-2022 Anion gap [Moles/Vol] 8 mmol/L Low 9-15 [facility] Comment on above: Order Comment: Daja ction has been rescheduled by HERAM at 07/02/2022 05:49 Reason: Come back last per rn fouzia Performed By: #### B MPX #### [facility] [address] [place] [address] Calcium [Mass/Vol] 8.9 mg/dL Normal 8.5-9.9 [facility] Comment on above: Order Comment: Daja ction has been rescheduled by HERAM at 07/02/2022 05:49 Reason: Come back last per rn fouzia Performed By: #### B MPX #### [facility] [address] [place] [address] Chloride [Moles/Vol] 100 mmol/L Normal 95-107 [facility] Comment on above: Order Comment: Daja ction has been rescheduled by HERAM at 07/02/2022 05:49 Reason: Come back last per rn fouzia Performed By: #### B MPX #### [facility] [address] [place] [address] CO2 [Moles/Vol] 27 mmol/L Normal 20-31 [facility] Comment on above: Order Comment: Colle ction has been rescheduled by HERAM at 07/02/2022 05:49 Reason: Come back last per rn fouzia Performed By: #### B MPX #### [facility] [address] [place] [address] Creatinine [Mass/Vol] 0.61 mg/dL Normal 0.50-0.90 [facility] Comment on above: Order Comment: Colle ction has been rescheduled by HERAM at 07/02/2022 05:49 Reason: Come back last per rn fouzia Performed By: #### B MPX #### [facility] [address] [place] [address] GFR >60.0 Normal >60 [facility] Comment on above: Order Comment: [...] secretion. Performed By: #### B MPX #### [facility] [address] [place] [address] Glucose [Mass/Vol] 144 mg/dL Critically high 70-99 M [facility] Comment on above: Order Comment: Daja zamarripa has been rescheduled by HERAM at 07/02/2022 05:49 Reason: Come back last per rn fouzia Performed By: #### B MPX #### [facility] [address] [place] [address] Magnesium [Moles/Vol] 4.8 mmol/L Normal 3.4-4.9 [facility] Comment on above: Order Comment: Daja zamarripa has been rescheduled by HERAM at 07/02/2022 05:49 Reason: Come back last per rn fouzia Performed By: #### B MPX #### [facility] [address] [place] [address] Sodium [Moles/Vol] 135 mmol/L Normal 135-144 [facility] Comment on above: Order Comment: Daja zamarripa has been rescheduled by HERAM at 07/02/2022 05:49 Reason: Come back last per rn fouzia Performed By: #### B MPX #### [facility] [address] [place] [id number] Urea nitrogen [Mass/Vol] 21 mg/dL Critically high 6-20 [facility] Comment on above: Order Comment: Daja zamarripa has been rescheduled by VALDO at 07/02/2022 05:49 Reason: Come back last per rn fouzia Performed By: #### B MPX #### [facility] [address] [place] [address] Basic Metabolic Panel w/ Ref hillary to MGon 07-02-2022 Anion gap [Moles/Vol] 8 mmol/L Low [facility] [employer] Calcium [Mass/Vol] 8.9 mg/dL 8.5 - 9.9 mg/dL [facility] [employer] Chloride [Moles/Vol] 100 mmol/L [facility] [employer] CO2 [Moles/Vol] 27 mmol/L [facility] [employer] Creatinine [Mass/Vol] 0.61 mg/dL 0.50 - 0.90 mg/dL [facility] [employer] GFR/1.73 sq M.predicted MDRD (S/P/Bld) [Vol rate/Area] 60 - [facility] Comment on above: Pediatric calculator link https://www.kidney.org/professionals/kdoqi/gfr_calculatorped [...] 144 mg/dL High 70 - 99 mg/dL [employer] Interpretation and review of laboratory results Abnormal [facility] [employer] Potassium reflex Magnesium 4.8 [facility] [employer] Sodium [Moles/Vol] 135 mmol/L [facility] [employer] Urea nitrogen (BldV) [Mass/Vol] 21 mg/dL High 6 - 20 mg/dL [facility] [employer] Collection has been rescheduled by VALDO at 07/02/2022 05:49 Reason: Come back last per kip galdamezfouzia [facility] CBCon 07-02-2022 Hematocrit (Bld) [Volume fraction] 40.3 % 37.0 - 47.0 % [facility] Hemoglobin (Bld) [Mass/Vol] 12.9 g/dL 12.0 - 16.0 g/dL [facility] Interpretation and review of laboratory results Abnormal [facility] MCH (RBC) [Entitic mass] 25.5 pg Low 27. 0 - 31.3 pg [facility] MCHC (RBC) [Mass/Vol] 32.1 % Low 33.0 - 37.0 % [facility] MCV (RBC) [Entitic vol] 79.6 fL 79.4 - 94.8 fL [facility] Platelet distribution width (Bld) [Ratio] 16.3 % High 11.5 - 14.5 % [facility] Platelets (Bld) [#/Vol] 230 10*3/uL 130 - 400 K/uL [facility] RBC (Bld) [#/Vol] 5.06 10*6/uL [facility] WBC (Bld) [#/Vol] 9.1 10*3/uL 4.8 - 10.8 K/uL [facility] Collection has been rescheduled by VALDO at 07/02/2022 05:49 Reason: Come back last per kip galdamezfouzia [facility] CBC With Platelet No Differe ntialon 07-02-2022 Erythrocyte distribution width (RBC) [Ratio] 16.3 % Critically high 11.5-14.5 [facility] Comment on above: Order Comment: Colle ction has been rescheduled by VALDO at 07/02/2022 05:49 Reason: Come back last per kip reinoso Performed By: #### C BCND #### [facility] [address] [place] [address] Hematocrit (Bld) [Volume fraction] 40.3 % Normal 37.0-47.0 [facility] Comment on above: Order Comment: Daja ctjanie has been rescheduled by HERAM at 07/02/2022 05:49 Reason: Come back last per rn fouzia Performed By: #### C BCND #### [facility] [address] [place] [address] Hemoglobin (Bld) [Mass/Vol] 12.9 g/dL Normal 12.0-16.0 [facility] Comment on above: Order Comment: Daja ctjanie has been rescheduled by HERAM at 07/02/2022 05:49 Reason: Come back last per rn fouzia Performed By: #### C BCND #### [facility] [address] [place] [address] MCH (RBC) [Entitic mass] 25.5 pg Low 27.0-31.3 [facility] Comment on above: Order Comment: Daja ctjanie has been rescheduled by HERAM at 07/02/2022 05:49 Reason: Come back last per rn fouzia Performed By: #### C BCND #### [facility] [address] [place] [address] MCHC 32.1 % Low 33.0-37.0 [facility] Comment on above: Order Comment: Daja zamarripa has been rescheduled by HERAM at 07/02/2022 05:49 Reason: Come back last per rn fouzia Performed By: #### C BCND #### [facility] [address] [place] [address] MCV (RBC) [Entitic vol] 79.6 fL Normal 79.4-94.8 M [facility] Comment on above: Order Comment: Daja ctjanie has been rescheduled by HERAM at 07/02/2022 05:49 Reason: Come back last per rn fouzia Performed By: #### C BCND #### [facility] [address] [place] [address] Platelets (Bld) [#/Vol] 230 10*3/uL Normal 130-400 [facility] Comment on above: Order Comment: Daja zamarripa has been rescheduled by HERAM at 07/02/2022 05:49 Reason: Come back last per rn fouzia Performed By: #### C BCND #### [facility] [address] [place] [address] RBC (Bld) [#/Vol] 5.06 10*6/uL Normal 4.20-5.40 [facility] Comment on above: Order Comment: Daja zamarripa has been rescheduled by HERAM at 07/02/2022 05:49 Reason: Come back last per rn fouzia Performed By: #### C BCND #### [facility] [address] [place] [address] WBC (Bld) [#/Vol] 9.1 10*3/uL Normal 4.8-10.8 [facility] Comment on above: Order Comment: Daja zamarripa has been rescheduled by HERAM at 07/02/2022 05:49 Reason: Come back last per rn fouzia Performed By: #### C BCND #### [facility] [address] [place] [address] US DUP UPPER EXTREMITY LEFT VENOUSon 07-02-2022 [...] Jean Sifuentes MD 07/02/22 Final result Normal [facility] No evidence of DVT. [facility] RADIOLOG[facility] EXAMINATION: VENOUS ULTRASOUND OF THE [...] normal color flow study and spectral analysis. [facility] Jean Sifuentes MD - 07/02/2022 [...] spectral analysis. IMPRESSION: No evidence of DVT. [employer] Phone: [employer] Phone: Radiology Study observation (narrative) [employer] Phone: XR KNEE RIGHT (1-2 VIEWS)on 07-01-2022 [...] Jean Sifuentes MD 07/01/22 Final result Normal [facility] Normal postsurgical appearance [facility] RADIOLOGY EXAMINATION: TWO XRAY VIEWS OF [...] are intact. Overlying surgical dee are seen [facility] Jean Sifuentes MD - 07/01/2022 [...] dee are seen IMPRESSION: Normal postsurgical appearance [employer] Work Phone: Radiology Study observation (narrative) [employer] Work Phone: XR KNEE RIGHT (1-2 VIEWS)Ord ered By: Jean Sifuentes on 07-01-2022 [employer] Work Phone: MRSA DNA Probe, Nasalon MRSA, DNA, Nasal Negative NEG [employer] Comment on above: NEGATIVE: MRSA DNA n ot detected by nucleic acid amplification. Results should be used as an adjunct to nosocomial control efforts to identify patients needing enhanced precautions. The test is not intended to identify patients with staphylococcal infections. Results should not be used to guide or monitor treatment for MRSA infections. [employer] [address] [place] [address] Specimen Description Swab [employer] [facility] [employer] MRSA, DNA, Nasalon 3 MRSA, DNA, Nasal Negative Normal NEG [facility] Comment on above: Result Comment: NEGA TIVE: MRSA DNA not detected by nucleic acid amplification. Results should be used as an adjunct to nosocomial control efforts to identify patients needing enhanced precautions. The test is not intended to identify patients with staphylococcal infections. Results should not be used to guide or monitor treatment for MRSA infections. [employer] [address] [place] [address] Performed By: #### I MRSA #### [facility] [address] [place] [address] EKG 12 LeadOrdered By: Leigh Ann Nash on 06-25-2022 Atrial Rate 73 BPM [employer] Work Phone: P [place] 33 degrees [employer] Work Phone: P-R Interval 160 ms [employer] Work Phone: Q-T Interval 406 ms [employer] Work Phone: QRS Duration 102 ms [employer] Work Phone: QTc Calculation (Bazett) 447 ms [employer] Work Phone: R [place] 74 degrees [employer] Work Phone: T [place] 65 degrees [employer] Work Phone: Ventricular Rate 73 BPM [employer] Work Phone: BON [employer] Work Phone: EKG 12 Leadon 06-25-2022 Normal sinus rhythm Incomplete right bundle branch block Confirmed by LEIGH ANN NASH ([id number]) on 06/25/2022 6:49:48 PM Leigh Ann Sumner F, DO - 06/25/2022 Normal sinus rhythm Incomplete right bundle branch block Confirmed by LEIGH ANN NASH ([id number]) on 06/25/2022 6:49:48 PM [employer]UL[employer] Work Phone: Established Visit (Orthopaed ic Surgery)on 06-25-2022 Established Visit (Orthopaedic Surgery) Chief Complaint Pre-op RT TK-Revision 07/01/22 @ [facility] History of Present Illness This patient [...] plans on performing outpatient physical therapy at [facility] in [place]. All of the patient's questions and concerns were answered. This note was prepared using voice recognition software. The details of this note are correct and have been reviewed, and corrected to the best of my ability. Some grammatical areas may persist related to the [employer] software Merrill Alejandro PA-C . Active Problems Problems Acute pain of both knees (338.19,719.46) (M25.561,M25.562) Allergies Medication Penicillins Recorded By: Tarsha Murray; 05/18/2022 8:47:33 AM Signatures Electronically signed by : Merrill Alejandro PA-C; Jun 25 2022 2:21PM EST (Author) Normal [employer] PT Initial Evaluationon 03-0 PT Initial Evaluation [...] reviewed Visit number: 1 [facility] Subjective Current Episode of Functional Impairment and/or [...] today's treatment with some difficulty. Evaluation Code: 20115 PT Eval: Low Complexity, 32 min(s). Resources provided today: education Signatures Electronically signed by : Natali Tyson, PT DPT; Jun 30 2022 10:08AM EST (Author) Normal [employer] APTTon 06-24-2022 aPTT Coag (Bld) [Time] 30.1 s [facility] Comment on above: Effective 02/27/2020: Heparin Therapeutic Range: 64.0 98.0 seconds. [facility] CBC With Platelet and Differ entialon 06-24-2022 Basophils (Bld) [#/Vol] 0.1 10*3/uL Normal 0.0-0.2 [facility] Comment on above: Performed By: #### C BCWD #### [facility] [address] [place] [address] Basophils/100 WBC (Bld) 0.6 % Normal M [facility] Comment on above: Performed By: #### C BCWD #### [facility] [address] [place] [address] Eosinophils (Bld) [#/Vol] 0.1 10*3/uL Normal 0.0-0.7 [facility] Comment on above: Performed By: #### C BCWD #### [facility] [address] [place] [address] Eosinophils/100 WBC (Bld) 1.6 % Normal [facility] Comment on above: Performed By: #### C BCWD #### [facility] [address] [place] [address] Erythrocyte distribution width (RBC) [Ratio] 16.4 % Critically high 11.5-14.5 [facility] Comment on above: Performed By: #### C BCWD #### [facility] [address] [place] [address] Hematocrit (Bld) [Volume fraction] 44.4 % Normal 37.0-47.0 [facility] Comment on above: Performed By: #### C BCWD #### [facility] [address] [place] [address] Hemoglobin (Bld) [Mass/Vol] 14.2 g/dL Normal 12.0-16.0 [facility] Comment on above: Performed By: #### C BCWD #### [facility] [address] [place] [address] Lymphocytes (Bld) [#/Vol] 2.3 10*3/uL Normal 1.0-4.8 [facility] Comment on above: Performed By: #### C BCWD #### [facility] [address] [place] [address] Lymphocytes/100 WBC (Bld) 25.8 % Normal [facility] Comment on above: Performed By: #### C BCWD #### [facility] [address] [place] [address] MCH (RBC) [Entitic mass] 25.1 pg Low 27.0-31.3 [facility] Comment on above: Performed By: #### C BCWD #### [facility] [address] [place] [address] MCHC 32.0 % Low 33.0-37.0 [facility] Comment on above: Performed By: #### C BCWD #### [facility] [address] [place] [address] MCV (RBC) [Entitic vol] 78.5 fL Low 79.4-94.8 M [facility] Comment on above: Performed By: #### C BCWD #### [facility] [address] [place] [address] Monocytes (Bld) [#/Vol] 0.8 10*3/uL Normal 0.2-0.8 [facility] Comment on above: Performed By: #### C BCWD #### [facility] [address] [place] [address] Monocytes/100 WBC (Bld) 9.4 % Normal [facility] [place] Comment on above: Performed By: #### C BCWD #### [facility] [address] [place] [address] Neutrophils (Bld) [#/Vol] 5.6 10*3/uL Normal 1.4-6.5 [facility] Comment on above: Performed By: #### C BCWD #### [facility] [address] [place] [address] Neutrophils/100 WBC (Bld) 62.6 % Normal [facility] Comment on above: Performed By: #### C BCWD #### [facility] [address] [place] [address] Platelets (Bld) [#/Vol] 281 10*3/uL Normal 130-400 [facility] Comment on above: Performed By: #### C BCWD #### [facility] [address] [place] [address] RBC (Bld) [#/Vol] 5.66 10*6/uL Critically high 4.20-5.40 [facility] Comment on above: Performed By: #### C BCWD #### [facility] [address] [place] [address] WBC (Bld) [#/Vol] 8.9 10*3/uL Normal 4.8-10.8 [facility] Comment on above: Performed By: #### C BCWD #### [facility] [address] [place] [address] CBC with Auto Differentialon 06-24-2022 Basophils (Bld) [#/Vol] 0.1 10*3/uL 0.0 - 0.2 K/uL [facility] Basophils/100 WBC (Bld) 0.6 % B ON [facility] Eosinophils (Bld) [#/Vol] 0.1 10*3/uL 0.0 - 0.7 K/uL [facility] Eosinophils/100 WBC (Bld) 1.6 % [facility] Hematocrit (Bld) [Volume fraction] 44.4 % 37.0 - 47.0 % [facility] Hemoglobin (Bld) [Mass/Vol] 14.2 g/dL 12.0 - 16.0 g/dL [facility] Interpretation and review of laboratory results Abnormal [facility] Lymphocytes (Bld) [#/Vol] 2.3 10*3/uL 1.0 - 4.8 K/uL [facility] Lymphocytes/100 WBC (Bld) 25.8 % [facility] MCH (RBC) [Entitic mass] 25.1 pg Low 27. 0 - 31.3 pg [facility] MCHC (RBC) [Mass/Vol] 32.0 % Low 33.0 - 37.0 % [facility] MCV (RBC) [Entitic vol] 78.5 fL Low 79.4 - 94.8 fL [facility] Monocytes (Bld) [#/Vol] 0.8 10*3/uL 0.2 - 0.8 K/uL [facility] Monocytes/100 WBC (Bld) 9.4 % B ON [facility] Neutrophils Absolute 5.6 K/uL 1.4 - 6 .5 K/uL [facility] Neutrophils/100 WBC (Bld) 62.6 % [facility] Platelet distribution width (Bld) [Ratio] 16.4 % High 11.5 - 14.5 % [facility] Platelets (Bld) [#/Vol] 281 10*3/uL 130 - 400 K/uL [facility] RBC (Bld) [#/Vol] 5.66 10*6/uL High [facility] WBC (Bld) [#/Vol] 8.9 10*3/uL 4.8 - 10.8 K/uL [facility] Comprehensive Metabolic Pane gretel 06-24-2022 Albumin [Mass/Vol] 4.2 g/dL Normal 3.5-4.6 [facility] Comment on above: Performed By: #### U MARIA ELENA #### [facility] [address] [place] [address] ALP [Catalytic activity/Vol] 89 U/L Normal 40-130 [facility] Comment on above: Performed By: #### U MARIA ELENA #### [facility] [address] [place] [address] ALT [Catalytic activity/Vol] 47 U/L Critically high 0-33 [facility] Comment on above: Performed By: #### U MARIA ELENA #### [facility] [address] [place] [address] Anion gap [Moles/Vol] 13 mmol/L Normal 9-15 [facility] Comment on above: Performed By: #### U MARIA ELENA #### [facility] [address] [place] [address] AST [Catalytic activity/Vol] 44 U/L Critically high 0-35 [facility] Comment on above: Performed By: #### U MARIA ELENA #### [facility] [address] [place] [address] Bilirubin [Mass/Vol] 0.5 mg/dL Normal 0.2-0.7 [facility] Comment on above: Performed By: #### U MARIA ELENA #### [facility] [address] [place] [address] Calcium [Mass/Vol] 9.2 mg/dL Normal 8.5-9.9 [facility] Comment on above: Performed By: #### U MARIA ELENA #### [facility] [address] [place] [address] Chloride [Moles/Vol] 100 mmol/L Normal 95-107 [facility] Comment on above: Performed By: #### U MARIA ELENA #### [facility] [address] [place] [address] CO2 [Moles/Vol] 26 mmol/L Normal 20-31 [facility] Comment on above: Performed By: #### U MARIA ELENA #### [facility] [address] [place] [address] Creatinine [Mass/Vol] 0.54 mg/dL Normal 0.50-0.90 [facility] Comment on above: Performed By: #### U MARIA ELENA #### [facility] [address] [place] [address] GFR >60.0 Normal >60 [facility] Comment on above: Result Comment: Myra [...] Performed By: #### U MARIA ELENA #### [facility] [address] [place] [address] Globulin (S) [Mass/Vol] 3.9 g/dL Critically high 2.3-3.5 [facility] Comment on above: Performed By: #### U MARIA ELENA #### [facility] [address] [place] [address] Glucose [Mass/Vol] 124 mg/dL Critically high 70-99 M [facility] Comment on above: Performed By: #### U MARIA ELENA #### [facility] [address] [place] [address] Potassium [Moles/Vol] 4.4 mmol/L Normal 3.4-4.9 [facility] Comment on above: Performed By: #### U MARIA ELENA #### [facility] [address] [place] [address] Protein [Mass/Vol] 8.1 g/dL Critically high 6.3-8.0 M [facility] Comment on above: Performed By: #### U MARIA ELENA #### [facility] [address] [place] [address] Sodium [Moles/Vol] 139 mmol/L Normal 135-144 [facility] Comment on above: Performed By: #### U MARIA ELENA #### [facility] [address] [place] [address] Urea nitrogen [Mass/Vol] 14 mg/dL Normal 6-20 [facility] Comment on above: Performed By: #### U MARIA ELENA #### [facility] [address] [place] [address] Albumin [Mass/Vol] 4.2 g/dL 3.5 - 4.6 g/dL [facility] ALP (Bld) [Catalytic activity/Vol] 89 U/L 40 - 130 U/L [facility] ALT [Catalytic activity/Vol] 47 U/L High 0 - 33 U/L [facility] Anion gap [Moles/Vol] 13 mmol/L [facility] AST [Catalytic activity/Vol] 44 U/L High 0 - 35 U/L [facility] Bilirubin [Mass/Vol] 0.5 mg/dL 0.2 - 0 .7 mg/dL [facility] Calcium [Mass/Vol] 9.2 mg/dL 8.5 - 9.9 mg/dL [facility] Chloride [Moles/Vol] 100 mmol/L [facility] CO2 [Moles/Vol] 26 mmol/L [facility] Creatinine [Mass/Vol] 0.54 mg/dL 0.50 - 0.90 mg/dL [facility] GFR/1.73 sq M.predicted MDRD (S/P/Bld) [Vol rate/Area] 60 - PINF [facility] Comment on above: Pediatric calculator link https://www.kidney.org/professionals/kdoqi/gfr_calculatorped [...] 3.9 g/dL High 2.3 - 3.5 g/dL [facility] Glucose [Mass/Vol] 124 mg/dL High 70 - 99 mg/dL [facility] Interpretation and review of laboratory results Abnormal [facility] Potassium [Moles/Vol] 4.4 mmol/L [facility] Protein [Mass/Vol] 8.1 g/dL High 6.3 - 8.0 g/dL [facility] Sodium [Moles/Vol] 139 mmol/L [facility] Urea nitrogen (BldV) [Mass/Vol] 14 mg/dL 6 - 20 mg/dL [facility] Laboratory - Coagulationon 0 06-24-2022 INR Coag (Bld) [Relative time] 1.1 {INR} Normal [facility] Work Phone: Laboratory - Hematology and Cell countson 06-24-2022 Basophils/100 WBC (Bld) 0.6 % [facility] Work Phone: Eosinophils/100 WBC (Bld) 1.6 % Normal [facility] Work Phone: Lymphocytes/100 WBC (Bld) 25.8 % Normal [facility] Work Phone: Monocytes/100 WBC (Bld) 9.4 % [facility] Work Phone: Neutrophils/100 WBC (Bld) 62.6 % Normal [facility] Work Phone: MRSA, DNA, Nasalon Specimen Description Swab Normal [facility] Comment on above: Performed By: #### I MRSA #### [facility] [address] [place] [id number] [phone] Microscopic Urinalysison Bacteria, UA FEW Abnormal Negative /HPF [facility] Epithelial Cells, UA 0-2 [facility] Hyaline Casts, UA 0-[address] [facility] RBC, UA 0-2 [facility] WBC, UA 3-5 [facility] No Panel Informationon 06-24 Interpretation and review of laboratory results Abnormal [facility] TRACE Abnormal Negative [facility] Work Phone: Negative Normal Negative [facility] Work Phone: 0.2 {E.U./dL} Normal < 2.0 [facility] Work Phone: 30 mg/dL Abnormal Negative [facility] Work Phone: 7.0 1 Normal 5.0-9.0 [facility] Work Phone: Not Indicated Normal [facility] Work Phone: 1.010 1 Normal 1.005-1.03 [facility] Work Phone: Clear Normal Clear [facility] Work Phone: Yellow Normal Straw/Coffey [facility] Work Phone: 0-2 Normal 0-5 [facility] Work Phone: 3-5 Normal 0-5 [facility] Work Phone: 0-1 Normal 0-5 [facility] Work Phone: FEW Abnormal Negative [facility] Work Phone: [phone] K/uL Normal 130-400 [facility] Work Phone: [phone] 16.4 % above high threshold 11.5-14.5 [facility] Work Phone: [phone] 32.0 % below low threshold 33.0-37.0 [facility] Work Phone: [phone] 0.1 K/uL Normal 0.0-0.2 [facility] Work Phone: [phone] 0.8 K/uL Normal 0.2-0.8 [facility] Work Phone: [phone] 2.3 K/uL Normal 1.0-4.8 [facility] Work Phone: [phone] 5.6 K/uL Normal 1.4-6.5 [facility] Work Phone: [phone] 25.1 pg below low threshold 27.0-31.3 [facility] Work Phone: [phone] 78.5 fL below low threshold 79.4-94.8 [facility] Work Phone: [phone] 44.4 % Normal 37.0-47.0 [facility] Work Phone: [phone] 14.2 g/dL Normal 12.0-16.0 [facility] Work Phone: [phone] 5.66 {M/uL} above high threshold 4.20-5.40 [facility] Work Phone: [phone] 8.9 K/uL Normal 4.8-10.8 [facility] Work Phone: [phone] 14.8 {sec} Normal 12.3-14.9 [facility] Work Phone: [phone] 30.1 {sec} Normal 24.4-36.8 [facility] Work Phone: Comment on above: Effective 02/27/2020: Heparin Therapeutic Range: 64.0 ? 98.0 seconds. 4.2 g/dL Normal 3.5-4.6 [facility] Work Phone: 3.9 g/dL above high threshold 2.3-3.5 [facility] Work Phone: 44 U/L above high threshold [...] [facility] Work Phone: >60.0 Normal >60 [facility] Work Phone: Comment on above: Pediatric calculator [...] [facility] Work Phone: 14 mg/dL Normal 6-[address] [facility] Work Phone: 124 mg/dL above high threshold 70-[address] [facility] Work Phone: 13 {mEq/L} Normal 9-[address] [facility] Work Phone: 26 {mEq/L} Normal 20-[address] [facility] Work Phone: 100 {mEq/L} Normal 95-[address] [facility] Work Phone: 4.4 {mEq/L} Normal 3.4-4.[address] [facility] Work Phone: 139 {mEq/L} Normal 135-144 [facility] Work Phone: Negative Normal NEG [facility] Work Phone: Comment on above: NEGATIVE: MRSA DNA n ot detected by nucleic acid amplification. Results should be used as an adjunct to nosocomial control efforts toidentify patients needing enhanced precautions.The test is not intended to identify patients with staphylococcalinfections. Results should not be used to guide or monitor treatmentfor MRSA infections.[employer] [facility] [place] [address] [facility] Work Phone: Partial Thromboplastin Timeo n 06-24-2022 aPTT Coag (Bld) [Time] 30.1 s Normal 24.4-36.8 [facility] Comment on above: Result Comment: Effe ctive 02/27/2020: Heparin Therapeutic Range: 64.0 ? 98.0 seconds. Performed By: #### U MARIA ELENA #### [facility] [address] [place] [address] Prothrombin Timeon 3 INR Coag (PPP) [Relative time] 1.1 {INR} Normal [facility] Comment on above: Performed By: #### P T #### [facility] [address] [place] [address] PT Coag (PPP) [Time] 14.8 s Normal 12.3-14.9 [facility] Comment on above: Performed By: #### P T #### [facility] [address] [place] [address] Protime-INRon 06-24-2022 INR Coag (Bld) [Relative time] 1.1 {INR} [facility] PT Coag (PPP) [Time] 14.8 s [facility] [employer] TYPE AND SCREENon 06-24-2022 ABO/Rh Negative [facility] Comment on above: @06/24/22 14:01 by Elaina FISCHER: BACK TYPE CONFIRMED IN TUBE. LMB Confirmation type ne eds to be drawn. [facility] Type and 3 cell Screen OB Ca ptureon 06-24-2022 Type and 3 cell Screen OB Capture PATIENT: PINKY Prince LOC: [facility]# : [id number] : 1970 SEX: F ORDERED BY: GILMAR COX ORDERED : 06/24/2022 11:08 COLLECTED: 06/24/2022 11:45 ORDER : [id number] RECEIVED : 06/24/2022 11:45 Confirmation type needs to be drawn. --- TEST NAME RESULT UNITS RANGES ABN FL ST ABORH Capture A NEG F @06/24/22 14:01 by RUDY: BACK TYPE CONFIRMED IN TUBE. LMB Antibody 3 Cell Scrn Captu NEG F -- Normal [facility] Comment on above: Performed By: #### T SO3C #### [facility] [address] [place] [address] Urinalysis with Reflex to Cu ltureon 06-24-2022 Bilirubin Urine Negative Negative [facility] [employer] Blood, Urine Negative Negative [facility] Clarity, UA Clear Clear [facility] Color, UA Yellow Straw/Coffey ow [facility] Glucose, Ur Negative Negative mg/dL [facility] Ketones Ql (U) Negative Negative mg/dL [facility] Leukocyte esterase Test strip Ql (U) TRACE Abnormal Negative [facility] Nitrite, Urine Negative Negative [facility] [employer] pH, UA 7.0 5.0 - 9.0 [facility] Protein (U) [Mass/Vol] 30 mg/dL Abnormal Negative [facility] [employer] Specific [place], UA 1.010 1.005 - 1.030 [facility] Urine Reflex to Culture Not Indicated [facility] [employer] Urobilinogen, Urine 0.2 N[facility] Urinalysis, reflex to cultur gurinder 06-24-2022 Urine Reflexed to Culture Not Indicated Normal [facility] Comment on above: Performed By: #### U AR #### [facility] [address] [place] [address] Bilirubin Ql (U) Negative Normal Negative [facility] Comment on above: Performed By: #### U AR #### [facility] [address] [place] [address] Clarity (U) Clear Normal Clear [facility] Comment on above: Performed By: #### U AR #### [facility] [address] [place] [address] Color (U) Yellow Normal Straw/Coffey [facility] Comment on above: Performed By: #### U AR #### [facility] [address] [place] [address] Glucose Ql (U) Negative Normal Negative [facility] Comment on above: Performed By: #### U AR #### [facility] [address] [place] [address] Hemoglobin Ql (U) Negative Normal Negative [facility] Comment on above: Performed By: #### U AR #### [facility] [address] [place] [address] Ketones Ql (U) Negative Normal Negative [facility] Comment on above: Performed By: #### U AR #### [facility] [address] [place] [address] Leukocyte esterase Test strip Ql (U) TRACE Abnormal Negative [facility] Comment on above: Performed By: #### U AR #### [facility] [address] [place] [address] Nitrite Ql (U) Negative Normal Negative [facility] Comment on above: Performed By: #### U AR #### [facility] [address] [place] [address] pH (U) 7.0 [pH] Normal 5.0-9.0 [facility] Comment on above: Performed By: #### U AR #### [facility] [address] [place] [address] Protein Ql (U) 30 mg/dL Abnormal Negative [facility] Comment on above: Performed By: #### U AR #### [facility] [address] [place] [address] Specific gravity (U) [Rel density] 1.010 Normal 1.005-1.03 [facility] Comment on above: Performed By: #### U AR #### [facility] [address] [place] [address] Urobilinogen Qn (U) 0.2 {Reji'U}/dL Normal < 2.0 [facility] Comment on above: Performed By: #### U AR #### [facility] [address] [place] [address] Urine Microscopicon 06-25-19 23 Urine Bacteria FEW Abnormal Negative [facility] Comment on above: Performed By: #### U MARIA ELENA #### [facility] [address] [place] [address] Urine Epithelial Cells Auto 0-2 Normal 0-5 [facility] Comment on above: Performed By: #### U MARIA ELENA #### [facility] [address] [place] [address] Urine Hyaline Casts Auto 0-1 Normal 0-5 [facility] Comment on above: Performed By: #### U MARIA ELENA #### [facility] [address] [place] [address] Urine RBC Auto 0-2 Normal 0-5 [facility] Comment on above: Performed By: #### U MARIA ELENA #### [facility] [address] [place] [address] Urine WBC Auto 3-5 Normal 0-5 [facility] Comment on above: Performed By: #### U MARIA ELENA #### [facility] [address] [place] [address] BILATERAL KNEE COMPLT, 4 OR MORE VIEWSon 05-18-2022 BILATERAL KNEE COMPLT, 4 OR MORE VIEWS Patient Name: GEETA SHELTON STUDY: BILATERAL KNEE; COMPLT, 4 OR MORE VIEWS; ; 05/18/2022 9:07 am INDICATION: pain M25.561: Acute pain of both knees M25.562:. ACCESSION NUMBER(S): [id number] ORDERING CLINICIAN: ACOSTA SCHAFER FINDINGS: Weightbearing four [...] Electronically signed by: ACOSTA SCHAFER MD Normal [facility] Initial Visit (Orthopaedic S urgery)on [...] Knee 4 Views Normal [facility] Work Phone: Albumin [Mass/volume] in Ser um or PlasmaOrdered By: Elizabeth Alvarado on 05-07-2022 Albumin [Mass/Vol] 3.9 g/dL 3.2-5.5 [facility] Alkaline phosphatase [Enzyma tic activity/volume] in Serum or PlasmaOrdered By: Elizabeth Alvarado on 05-07-2022 ALP [Catalytic activity/Vol] 83 U/L 32-[address] [facility] Aspartate aminotransferase [ Enzymatic activity/volume] in Serum or PlasmaOrdered By: Elizabeth Alvarado on 05-07-2022 AST [Catalytic activity/Vol] 56 U/L 10-[address] [facility] Basophils Auto (Bld) [#/Vol] Ordered By: Elizabeth Alvarado on 05-07-2022 Basophils (Bld) [#/Vol] 0.1 10*3/uL 0.0-0.[address] [facility] Basophils/100 WBC Auto (Bld) Ordered By: Elizabeth Alvarado on 05-07-2022 Basophils/100 WBC (Bld) 0.7 % . F [facility] Bilirubin.total [Mass/volume ] in Serum or PlasmaOrdered By: Elizabeth Alvarado on 05-07-2022 Bilirubin [Mass/Vol] 0.6 mg/dL 0.3-1.2 [facility] Calcium [Mass/volume] in Ser um or PlasmaOrdered By: Elizabeth Alvarado on 05-07-2022 Calcium [Mass/Vol] 9.1 mg/dL 8.2-10.2 [facility] Carbon dioxide, total [Moles /volume] in Serum or PlasmaOrdered By: Elizabeth Alvarado on 05-07-2022 CO2 [Moles/Vol] 28.1 mmol/L 22.0-30.0 [facility] Chloride [Moles/volume] in S hugo or PlasmaOrdered By: Elizabeth Alvarado on 01-13-2023 Chloride [Moles/Vol] 100 mmol/L 95-114 [facility] Cholesterol [Mass/volume] in Serum or PlasmaOrdered By: Elizabeth Alvarado on 05-07-2022 Cholesterol [Mass/Vol] 181 mg/dL 140-200 [facility] Comment on above: Chol less than 200 m g/dl low riskChol 201-239 mg/dl borderline riskChol 240 mg/dl and greater high risk Cholesterol in LDL Calc [Mas s/Vol]Ordered By: Elizabeth Alvarado on 05-07-2022 Cholesterol in LDL [Mass/Vol] 102 mg/dL 0-[address] [facility] Comment on above: LDL ATP III CLASSIFI CATIONLDL less than 100 mg/dL OptimalLDL 100-129 mg/dL Near or above optimalLDL 130-159 mg/dL Borderline highLDL 160-189 mg/dL HighLDL greater than 189 mg/dL Very high Cholesterol in VLDL Calc [Ma ss/Vol]Ordered By: Elizabeth Alvarado on 05-07-2022 Cholesterol in VLDL [Mass/Vol] 20 mg/dL [facility] Creatinine and Glomerular fi ltration rate.predicted panel (S/P/Bld)Ordered By: Elizabeth Alvarado on 05-07-2022 Creatinine [Mass/Vol] 0.65 mg/dL 0.44-1.03 [facility] Eosinophils Auto (Bld) [#/Vo l]Ordered By: Elizabeth Alvarado on 05-07-2022 Eosinophils (Bld) [#/Vol] 0.1 10*3/uL 0.0-0.[address] [facility] Eosinophils/100 WBC Auto (Bl d)Ordered By: Elizabeth Alvarado on 05-07-2022 Eosinophils/100 WBC (Bld) 1.8 % . [facility] Erythrocyte distribution wid th Auto (RBC) [Ratio]Ordered By: Elizabeth Alvarado on 05-07-2022 Erythrocyte distribution width (RBC) [Ratio] 17.8 % 11.9-15.[address] [facility] Estimated glomerular filtrat ion rate (GFR) non- AmericanOrdered By: Elizabeth Alvarado on 05-07-2022 GFR/1.73 sq M.predicted among non-blacks MDRD (S/P/Bld) [Vol rate/Area] > 60 mL/Min [facility] Globulin Calc (S) [Mass/Vol] Ordered By: Elizabeth Alvarado on 05-07-2022 Globulin (S) [Mass/Vol] 3.7 g/dL F [facility] Glucose [Mass/volume] in Ser um or PlasmaOrdered By: Elizabeth Alvarado on 05-07-2022 Glucose [Mass/Vol] 137 mg/dL 70-100 [facility] Comment on above: ADA recommended refe rence rangeRandom Glucose Reference Range is dependent on time and content of last meal. Glucose of more than 200 mg/dL in a nonstressed, ambulatory subject supports the diagnosis of Diabetes Mellitus. Hematocrit Auto (Bld) [Volum e fraction]Ordered By: Elizabeth Alvarado on 05-07-2022 Hematocrit (Bld) [Volume fraction] 45.4 % 34.0-46.[address] [facility] Hemoglobin [Mass/volume] in BloodOrdered By: Elizabeth Alvarado on 05-07-2022 Hemoglobin (Bld) [Mass/Vol] 14.1 g/dL 11.8-15.[address] [facility] Leukocytes [#/volume] correc silverio for nucleated erythrocytes in Blood by Automated counOrdered By: Elizabeth Alvarado on 05-07-2022 WBC corrected for nucl RBC Auto (Bld) [#/Vol] 7.9 10*3/uL 3.8-11.[address] [facility] Lymphocytes Auto (Bld) [#/Vo l]Ordered By: Elizabeth Alvarado on 05-07-2022 Lymphocytes (Bld) [#/Vol] 2.4 10*3/uL 1.00-4.[address] [facility] Lymphocytes/100 WBC Auto (Bl d)Ordered By: Elizabeth Alvarado on 05-07-2022 Lymphocytes/100 WBC (Bld) 30.9 % . [facility] MCH Auto (RBC) [Entitic mass ]Ordered By: Elizabeth Alvarado on 05-07-2022 MCH (RBC) [Entitic mass] 24.6 pg 24.7-34.[address] [facility] MCHC Auto (RBC) [Mass/Vol]Or dered By: Elizabeth Alvarado on 05-07-2022 MCHC (RBC) [Mass/Vol] 31.0 g/dL 32.0-35.0 [facility] MCV Auto (RBC) [Entitic vol] Ordered By: Elizabeth Alvarado on 05-07-2022 MCV (RBC) [Entitic vol] 79.4 fL 80-100 [facility] Monocytes Auto (Bld) [#/Vol] Ordered By: Elizabeth Alvarado on 05-07-2022 Monocytes (Bld) [#/Vol] 0.7 10*3/uL 0.0-0.[address] [facility] Monocytes/100 WBC Auto (Bld) Ordered By: Elizabeth Alvarado on 05-07-2022 Monocytes/100 WBC (Bld) 9.3 % . [facility] Neutrophils Auto (Bld) [#/Vo l]Ordered By: Elizabeth Alvarado on 05-07-2022 Neutrophils (Bld) [#/Vol] 4.5 10*3/uL 1.8-7.[address] [facility] Neutrophils/100 WBC Auto (Bl d)Ordered By: Elizabeth Alvarado on 05-07-2022 Neutrophils/100 WBC (Bld) 57.3 % . [facility] No Panel InformationOrdered By: Elizabeth Alvarado on 05-07-2022 Estimated GFR () > 60 mL/Min [facility] Comment on above: GFR estimated refere nce range: According to KDOQI guidelines, <60 ml/min/1.73m2 is sufficient to diagnose a patient with chronic kidney disease. Pharmacy Creatinine Clearance (Chem N/A [facility] Nucleated erythrocytes [Pres ence] in Blood by Automated countOrdered By: Elizabeth Alvarado on 05-07-2022 Nucleated RBC Auto Ql (Bld) 0.1 /100{WBC} 0-0.[address] [facility] Platelet mean volume Auto (B ld) [Entitic vol]Ordered By: Elizabeth Alvarado on 05-07-2022 Platelet mean volume (Bld) [Entitic vol] 9.4 fL 6.3-10.[address] [facility] Platelets Auto (Bld) [#/Vol] Ordered By: Elizabeth Alvarado on 05-07-2022 Platelets (Bld) [#/Vol] 242 10*3/uL 150-[address] [facility] Potassium [Moles/volume] in Serum or PlasmaOrdered By: Elizabeth Alvarado on 05-07-2022 Potassium [Moles/Vol] 4.3 mmol/L 3.5-5.1 [facility] Protein [Mass/volume] in Ser um or PlasmaOrdered By: Elizabeth Alvarado on 05-07-2022 Protein [Mass/Vol] 7.6 g/dL 6.1-7.9 [facility] RBC Auto (Bld) [#/Vol]Ordere d By: Elizabeth Alvarado on 05-07-2022 RBC (Bld) [#/Vol] 5.72 10*6/uL 3.60-5.00 [facility] Serum or plasma alanine ulloa otransferase measurement without P-5'-P (enzymatic activiOrdered By: Elizabeth Alvarado on 05-07-2022 ALT No additional P-5'-P [Catalytic activity/Vol] 61 U/L 10-60 [facility] Serum or plasma albumin/glob ulin mass ratioOrdered By: Elizabeth Alvarado on 05-07-2022 Albumin/Globulin [Mass ratio] 1.1 {ratio} [facility] Serum or plasma anion gap de terminationOrdered By: Elizabeth Alvarado on 05-07-2022 Anion gap [Moles/Vol] 11.2 mmol/L 6.0-15.0 [facility] Serum or plasma high density lipoprotein (HDL) cholesterol measurementOrdered By: Elizabeth Alvarado on 05-07-2022 Cholesterol in HDL [Mass/Vol] 58 mg/dL 35-[address] [facility] Comment on above: HDL CHOL ATP-III CLA SSIFICATION Cardiovascular RiskHDL > or equal to 60 mg/dL LOWHDL < 40 mg/dL HIGH Serum or plasma total choles terol/high density lipoprotein (HDL) cholesterol mass ratOrdered By: Elizabeth Alvarado on 05-07-2022 Cholesterol.total/Choles terol in HDL [Mass ratio] 3.1 {ratio} <5.[address] [facility] Sodium [Moles/volume] in Ser um or PlasmaOrdered By: Elizabeth Alvarado on 05-07-2022 Sodium [Moles/Vol] 135 mmol/L 136-146 [facility] TSH DL <= 0.005 mIU/L QnOrde red By: Elizabeth Alvarado on 05-07-2022 TSH Qn 4.21 m[IU]/L 0.45-5.[address] [facility] Triglyceride [Mass/volume] i n Serum or PlasmaOrdered By: Elizabeth Alvarado on 05-07-2022 Triglyceride [Mass/Vol] 103 mg/dL 35-149 [facility] Comment on above: TRIG ATP III CLASSIF ICATIONTRIG less than 150 mg/dL NormalTRIG 150-199 mg/dL Borderline highTRIG 200-500 mg/dL High TRIG greater than 500 mg/dL Very highStandard traceable to the Center for Disease Conrtrol and Prevention (CDC) test method. Urea nitrogen [Mass/volume] in Serum or PlasmaOrdered By: Elizabeth Alvarado on 05-07-2022 Urea nitrogen [Mass/Vol] 14 mg/dL 9-[address] [facility] WBC Auto (Bld) [#/Vol]Ordere d By: Elizabeth Alvarado on 05-07-2022 WBC (Bld) [#/Vol] 7.9 10*3/uL 3.8-11.6 [facility] Basophils Auto (Bld) [#/Vol] Ordered By: Tyler Villeda on 04-13-2022 Basophils (Bld) [#/Vol] 0.1 10*3/uL 0.0-0.[address] [facility] Basophils/100 WBC Auto (Bld) Ordered By: Tyler Villeda on 04-13-2022 Basophils/100 WBC (Bld) 0.6 % . [facility] C reactive protein [Mass/vol ume] in Serum or PlasmaOrdered By: Tyler Villeda on 04-13-2022 CRP [Mass/Vol] 2.1 mg/dL 0.0-1.[address] [facility] Eosinophils Auto (Bld) [#/Vo l]Ordered By: Tyler Villeda on 04-13-2022 Eosinophils (Bld) [#/Vol] 0.2 10*3/uL 0.0-0.[address] [facility] Eosinophils/100 WBC Auto (Bl d)Ordered By: Tyler Villeda on 04-13-2022 Eosinophils/100 WBC (Bld) 2.0 % . [facility] Erythrocyte distribution wid th Auto (RBC) [Ratio]Ordered By: Tyler Villeda on 04-13-2022 Erythrocyte distribution width (RBC) [Ratio] 17.6 % 11.9-15.[address] [facility] Erythrocyte sedimentation ra te by Photometric methodOrdered By: Tyler Villeda on 04-13-2022 ESR Photometric method (d) [Velocity] 54 mm/hr 0-[address] [facility] Hematocrit Auto (Bld) [Volum e fraction]Ordered By: Tyler Villeda on 04-13-2022 Hematocrit (Bld) [Volume fraction] 44.4 % 34.0-46.[address] [facility] Hemoglobin [Mass/volume] in BloodOrdered By: Tyler Villeda on 04-13-2022 Hemoglobin (Bld) [Mass/Vol] 14.3 g/dL 11.8-15.[address] [facility] Leukocytes [#/volume] correc silverio for nucleated erythrocytes in Blood by Automated counOrdered By: Tyler Villeda on 04-13-2022 WBC corrected for nucl RBC Auto (Bld) [#/Vol] 8.6 10*3/uL 3.8-11.[address] [facility] Lymphocytes Auto (Bld) [#/Vo l]Ordered By: Tyler Villeda on 04-13-2022 Lymphocytes (Bld) [#/Vol] 2.9 10*3/uL 1.00-4.[address] [facility] Lymphocytes/100 WBC Auto (Bl d)Ordered By: Tyler Villeda on 04-13-2022 Lymphocytes/100 WBC (Bld) 33.6 % . [facility] MCH Auto (RBC) [Entitic mass ]Ordered By: Tyler Villeda on 04-13-2022 MCH (RBC) [Entitic mass] 24.9 pg 24.7-34.[address] [facility] MCHC Auto (RBC) [Mass/Vol]Or dered By: Tyler Villeda on 04-13-2022 MCHC (RBC) [Mass/Vol] 32.2 g/dL 32.0-35.0 [facility] MCV Auto (RBC) [Entitic vol] Ordered By: Tyler Villeda on 04-13-2022 MCV (RBC) [Entitic vol] 77.4 fL 80-100 [facility] Monocytes Auto (Bld) [#/Vol] Ordered By: Tyler Villeda on 04-13-2022 Monocytes (Bld) [#/Vol] 0.9 10*3/uL 0.0-0.[address] [facility] Monocytes/100 WBC Auto (Bld) Ordered By: Tyler Villeda on 04-13-2022 Monocytes/100 WBC (Bld) 10.0 % . [facility] Neutrophils Auto (Bld) [#/Vo l]Ordered By: Tyler Villeda on 04-13-2022 Neutrophils (Bld) [#/Vol] 4.6 10*3/uL 1.8-7.[address] [facility] Neutrophils/100 WBC Auto (Bl d)Ordered By: Tyler Villeda on 04-13-2022 Neutrophils/100 WBC (Bld) 53.8 % . [facility] Nucleated erythrocytes [Pres ence] in Blood by Automated countOrdered By: Tyler Villeda on 04-13-2022 Nucleated RBC Auto Ql (Bld) 0.1 /100{WBC} 0-0.[address] [facility] Platelet mean volume Auto (B ld) [Entitic vol]Ordered By: Tyler Villeda on 04-13-2022 Platelet mean volume (Bld) [Entitic vol] 9.1 fL 6.3-10.[address] [facility] Platelets Auto (Bld) [#/Vol] Ordered By: Tyler Villeda on 04-13-2022 Platelets (Bld) [#/Vol] 296 10*3/uL 150-[address] [facility] RBC Auto (Bld) [#/Vol]Ordere d By: Tyler Villeda on 04-13-2022 RBC (Bld) [#/Vol] 5.73 10*6/uL 3.60-5.00 [facility] WBC Auto (Bld) [#/Vol]Ordere d By: Tyler Villeda on 04-13-2022 WBC (Bld) [#/Vol] 8.6 10*3/uL 3.8-11.6 [facility] Serum or plasma follitropin measurement (units/volume)Ordered By: Elizabeth Alvarado on 12-03-2021 Follitropin Qn 18.3 m[IU]/mL [facility] Comment on above: FEMALE NORMALS (JUDIE ENOPAUSE) MID-FOLLICULAR PHASE: 3.9-8.8 mIU/mL MID-CYCLE PEAK: 4.5-22.5 mIU/mL MID-LUTEAL PHASE: 1.8-5.1 mIU/mL FEMALE NORMALS (POSTMENOPAUSE): 16.7-113.6 mIU/mL MALE NORMALS: 1.3-19.3 mIU/mL TSH DL <= 0.005 mIU/L QnOrde red By: Elizabeth Alvarado on 12-03-2021 TSH Qn 4.23 m[IU]/L 0.45-5.[address] [facility] Total estrogen measurementOr dered By: Elizabeth Alvarado on 12-03-2021 Estrogen [Mass/Vol] 83 pg/mL . [facility] Comment on above: Prepubertal < 40 Female Cycle: 1-10 Days 16 - 328 11-20 Days 34 - 501 21-30 Days 48 - 350 Post-Menopausal 40 - 244 Performed at: - [facility] [id number] Accountant Machine Processing: Virgie Isaac MD, Phone: [phone] Coding Summary.on 01-26-2019 Coding Summary. 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 PYMT PROC APC STAT DESCRIPTION DOCTOR NAME DATE 5112 J1 Tenotomy, percutaneous, Thuan Travis DPM 01/24/2019 Achilles tendon (separate procedure); general anesthesia RT Right side (used to identify procedures performed on the right side of the body) 48720 Anesthesia for Shahab Almanzar Jr., DO 01/24/2019 [...] Revised Date Saved: 01/26/2019 11:32 am Normal [facility] Inpatient Patient Summaryon 01-24-2019 Inpatient Patient Summary [facility] Clinical Discharge Instructions PERSON INFORMATION Name: GEETA SHELTON PHYSICIANS Admitting Physician: Thuan Travis DPM Attending Physician: Thuan Travis DPM PCP: Nichole Caballero Discharge Diagnosis: Comment: PATIENT EDUCATION INFORMATION Instructions: Post Op Patient Instructions - FT (Custom); Foot Cryocuff Patient Instructions - FT (Custom); Thaddeus - Post Operative Instructions (Revised 12/20/13) (Custom) ([id number]) Medication Leaflets: Follow up: MEDICATION LIST Comment: Normal [facility] Lyteson 01-24-2019 Anion gap [Moles/Vol] 14 mmol/L Normal 6-16 [facility] Comment on above: Performed By: #### 2 551811, 6990807, 3314251, 08922508, 4134967, 7960309 #### [facility] [address] [place] [address] Chloride [Moles/Vol] 107 mmol/L Normal 101-111 [facility] Comment on above: Performed By: #### 2 228981, 3688375, 9224702, 55362109, 0533765, 7553519 #### [facility] [address] [place] [address] CO2 [Moles/Vol] 23 mmol/L Normal 21-31 [facility] Comment on above: Performed By: #### 2 610104, 7102128, 6912108, 00858309, 7432280, 1622753 #### [facility] [address] [place] [address] Potassium [Moles/Vol] 4.9 mmol/L Normal 3.5-5.3 [facility] Comment on above: Performed By: #### 2 698368, 0140549, 8755410, 24918420, 0310489, 4402271 #### [facility] [address] [place] [address] Sodium [Moles/Vol] 139 mmol/L Normal 135-145 [facility] Comment on above: Performed By: #### 2 833132, 6404523, 5008069, 52942240, 2362894, 4793507 #### [facility] [address] [place] [address] Main OR Intraoperative Recor don 01-24-2019 Main OR Intraoperative Record IntraOp Document Type FT Summary Primary Physician: Thuan Travis DPM Finalized Date/Time: 01/24/19 11:33:24 Pt. Name: GEETA SHELTON/Sex: 1970 Female Med Rec #: [id number] Physician: Thuan Travis DPM Financial #: [id number] Pt. Type: A Room/Bed: Admit/Disch: 01/24/19 07:58:48 [...] Entry 2 Entry 3 Case Attendee Thaddeus LACKEY, Bhavna Travis DPM, Thuan Stanley RN, CNOR, Cheryl Role Performed Anesthesiologist Surgeon - Primary SCIENTIFIC WRITER Tower Equipment Installer Time In 01/24/19 08:48:00 01/24/19 09:00:00 01/24/19 [...] Zuly Duarte CST, Prashant Panda Role Performed Senior Linux Engineer - Primary Senior Linux Engineer - Other Scrub - Primary Time In 01/24/19 08:48:00 01/24/19 08:48:00 01/24/19 08:48:00 Time Out 01/24/19 09:26:00 01/24/19 09:26:00 01/24/19 09:26:00 Procedure PLANTAR/ACHILLES PLANTAR/ACHILLES PLANTAR/ACHILLES FASCIOTOMY TENEX(Right) FASCIOTOMY TENEX(Right) FASCIOTOMY TENEX(Right) Comments ORIENTATION Last Modified By: Jani RN, Kallie Gunter RN, Kallie Figueroa RN 01/24/19 09:26:18 01/24/19 09:26:18 01/24/19 09:26:18 Perioperative [...] (If Applicable) PreOp Antibiotic Yes Time Out Thaddeus LACKEY, Bhavna C, Given Participants Thaddeus SANCHEZ, Lizeth Gar RN, Cheryl MILNER Coy RN, Alpa Sheikh RN, Gerald Veliz COMBINATION TECHNICIAN, Prashant M Time Out Complete 01/24/19 08:59:00 [...] AGUILAR, CNOR, Alpa AGUILAR, Zuly Luna, Gerald COMBINATION TECHNICIAN, R, Gerald QUIROZ, Prashant Panda Outcomes Met? [...] to transfer/transport General Comments: REPORT GIVEN TO INJECTION OPERATORRN. Cy PRIDE RN Dressing/Packing FT Pre-Care Text: [...] safely administered during the perioperative period For [facility] please see scanned medication reconcilliation form for medications used at the field during the procedure. Temperature Control Entry 1 Temperature Control BLANKET MISTRAL AIR Quantity 1 Aid TORSO [[id number]][F] Fluid/[place] Unit Mistral warming system Setting HIGH/43 Body Site Upper anterior torso Last Modified By: Kallie Gunter RN 01/24/19 08:46:43 Case Comments Finalized By: Maye Silverio CST Document Signatures Signed By: Kallie Gunter RN 01/24/19 09:26 Maye Silverio CST 01/24/19 11:33 Normal [facility] Main OR PACU I Recordon Main OR PACU I Record PACU Phase I Docum ent Type FT Summary Primary Physician: Thuan Travis DPM Finalized Date/Time: 01/24/19 10:08:45 Pt. Name: GEETA SHELTON/Sex: 1970 Female Med Rec #: [id number] Physician: Thuan Travis DPM Financial #: [id number] Pt. Type: A Room/Bed: Admit/Disch: 01/24/19 07:58:48 [...] By: Swathi Carr RN 01/24/19 10:08 Normal [facility] Main OR PACU II Recordon Main OR PACU II Record PACU Phase II Doc ument Type FT Summary Primary Physician: Thuan Travis DPM Finalized Date/Time: 01/24/19 13:09:21 Pt. Name: ROCIO SHELTONCHRISTINA Zaman/Sex: 1970 Female Med Rec #: [id number] Physician: Thuan Travis DPM Financial #: [id number] Pt. Type: A Room/Bed: [facility] Admit/Disch: 01/24/19 07:58:48 - Institution: Case [...] By: Keeley Putnam LPN 01/24/19 13:09 Normal [facility] Main OR Preoperative Recordo n 01-24-2019 Main OR Preoperative Record PreOp Document Type FT Summary Primary Physician: Thuan Travis DPM Finalized Date/Time: 01/24/19 09:12:07 Pt. Name: GEETA SHELTON/Sex: 1970 Female Med Rec #: [id number] Physician: Thuan Travis DPM Financial #: [id number] Pt. Type: A Room/Bed: [facility] Admit/Disch: 01/24/19 07:58:48 - Institution: Case [...] By: Kallie Gunter RN 01/24/19 09:12 Normal [facility] Operative Reporton 10--201 9 Operative Report Date of Surgery: 01/24/2019 SURGEON: Mario PantojaPAntoniaMAntonia PREOPERATIVE DIAGNOSIS: Contracture of right ankle with [...] one week for her first postoperative visit. Thuan Travis D.P.M. aek Dictated: 01/24/2019 #[id number] Typed: 01/24/2019 #[id number] cc: Thuan Travis D.P.M. [facility] Comment on above: Result Comment: Elec tronically Signed By: Thuan Travis DPM\.br\Date and Time Signed: 01/24/19 10:24 EDT Patient Education - Texton 1 Patient Education - Text (Inserted Image . Unable to display) [place], [place] Thuan Travis DPM, FACFAS POST OPERATIVE [...] feel free to call the doctor at: [phone] or [phone] Travis paged. ___ Patient signature Date ___ Dr. Anand Sauer DPM, FACFAS Date Revised: 06-02 [facility] Progress Note-Physicianon Progress Note-Physician Patient: [...] 1 ml. Complications: None. Anesthesia type: General. [facility] Comment on above: Result Comment: Elec tronically Signed By: Thuan Travis DPM\.br\Date and Time Signed: 01/24/19 09:27 EDT Coding Summary.on 01-12-2019 Coding Summary. CODING DATE: 019 FINAL [facility] STATUS: Home (Routine DC) PAYOR: Medicare [...] CphT Date Saved: 01/12/2019 11:10 am Normal [facility] BUNon 01-11-2019 Urea nitrogen [Mass/Vol] 29 mg/dL High 5-21 [facility] Comment on above: Performed By: #### 2 582413, 7510136, 3321352, 66721756, 7246335, 8267487 #### [facility] [address] [place] [address] CBC w/Indiceson 01-11-2019 Erythrocyte distribution width (RBC) [Ratio] 16.1 % High 10.9-14.2 [facility] Comment on above: Performed By: #### 1 7551582, 6535492, 0848260, 1875208, 3914584 #### [facility] [address] [place] [address] Hematocrit (Bld) [Volume fraction] 42.1 % Normal 34.0-46.0 [facility] Comment on above: Performed By: #### 1 3891959, 9456452, 4600726, 9762486, 0081021 #### [facility] [address] [place] [address] Hemoglobin (Bld) [Mass/Vol] 13.8 g/dL Normal 12.0-16.0 [facility] Comment on above: Performed By: #### 1 2876109, 0609329, 4047933, 2771659, 4086423 #### [facility] [address] [place] [address] MCH (RBC) [Entitic mass] 25.8 pg Low 27.0-34.0 [facility] Comment on above: Performed By: #### 1 5828105, 0334469, 7582862, 9382224, 2047562 #### [facility] [address] [place] [address] MCHC (RBC) [Mass/Vol] 32.8 g/dL Low 33.3-35.7 [facility] Comment on above: Performed By: #### 1 9132342, 8026351, 7243199, 5268796, 0742416 #### [facility] [address] [place] [address] MCV (RBC) [Entitic vol] 78.5 fL Low 80.0-100.0 [facility] Comment on above: Performed By: #### 1 5136570, 3704099, 6467800, 3285128, 8487599 #### [facility] [address] [place] [address] Platelet mean volume (Bld) [Entitic vol] 9.9 fL Normal 6.4-10.8 [facility] Comment on above: Performed By: #### 1 5144465, 2722239, 7296541, 7434387, 0497517 #### [facility] [address] [place] [address] Platelets (Bld) [#/Vol] 283.0 E9/L Normal 150. 0-500. 0 [facility] Comment on above: Performed By: #### 1 6624366, 1190517, 5493587, 5293083, 0408565 #### [facility] [address] [place] [address] RBC (Bld) [#/Vol] 5.4 E12/L Normal 4.3-5.9 [facility] Comment on above: Performed By: #### 1 5202199, 9439110, 5340186, 4242436, 2063980 #### [facility] [address] [place] [address] WBC corrected for nucl RBC Auto (Bld) [#/Vol] 8.6 E9/L Normal 4.0-11.0 [facility] Comment on above: Performed By: #### 1 9958893, 9970913, 4391891, 0321881, 4640407 #### [facility] [address] [place] [address] Creatinineon 01-11-2019 Creatinine [Mass/Vol] 1.0 mg/dL Normal 0.5-1.3 [facility] Comment on above: Performed By: #### 2 461626, 3322175, 3719908, 00114844, 9114907, 1027171 #### [facility] [address] [place] [address] Glucoseon 01-11-2019 Glucose [Mass/Vol] 95 mg/dL Normal 55-199 [facility] Comment on above: Performed By: #### 1 4057333, 9449027, 8417905, 2243197, 7016355 #### [facility] [address] [place] [address] eGFRon 01-11-2019 GFR/1.73 sq M predicted among blacks MDRD (S/P/Bld) [Vol rate/Area] mL/min/{1.73_m2} Normal >=59 [facility] Comment on above: Order Comment: Order added by Discern Expert. Result Comment: eGFR is race adjusted. AA=. Performed By: #### 2 340952, 0489043, 1422523, 75788969, 4313952, 1698125 #### [facility] [address] [place] [address] GFR/1.73 sq M predicted among non-blacks MDRD (S/P/Bld) [Vol rate/Area] 59 mL/min/1.73 m2 Normal >=59 [facility] Comment on above: Order Comment: Order added by Discern Expert. Result Comment: Telecommunicator Supervisor stefanie kidney disease could be indicated at eGFR's of less than 60 mL/min/1.73m2. Kidney failure is indicated at less than 15 mL/min/1.73m2. Performed By: #### 2 175716, 0490746, 6571101, 24383073, 5565319, 6682555 #### [facility] [address] [place] [address] Coding Summary.on 12-15-2018 Coding Summary. CODING DATE: 019 FINAL [facility] STATUS: Home (Routine DC) PAYOR: Medicare [...] CphT Date Saved: 12/15/2018 01:36 pm Normal [facility] BUNon 12-14-2018 Urea nitrogen [Mass/Vol] 19 mg/dL Normal 5-21 [facility] Comment on above: Performed By: #### 2 761774, 7806831, 5226407, 01534071, 6894312, 4745099 #### [facility] [address] [place] [address] CBC w/Indiceson 12-14-2018 Erythrocyte distribution width (RBC) [Ratio] 17.1 % High 10.9-14.2 [facility] Comment on above: Performed By: #### 2 932299, 5280106, 5364003, 63175487, 5436713, 9046463 #### [facility] [address] [place] [address] Hematocrit (Bld) [Volume fraction] 41.5 % Normal 34.0-46.0 [facility] Comment on above: Performed By: #### 2 357377, 5980479, 8933248, 69595902, 0960727, 6421971 #### [facility] [address] [place] [address] Hemoglobin (Bld) [Mass/Vol] 13.2 g/dL Normal 12.0-16.0 [facility] Comment on above: Performed By: #### 2 191701, 0572141, 3231649, 75502969, 5725437, 6995600 #### [facility] [address] [place] [address] MCH (RBC) [Entitic mass] 25.0 pg Low 27.0-34.0 [facility] Comment on above: Performed By: #### 2 378183, 4939634, 8997554, 01983774, 3849174, 7439887 #### [facility] [address] [place], [place] [address] MCHC (RBC) [Mass/Vol] 31.7 g/dL Low 33.3-35.7 [facility] Comment on above: Performed By: #### 2 138557, 5536235, 5721787, 99490970, 5328614, 1879720 #### [facility] [address] [place], [place] [address] MCV (RBC) [Entitic vol] 78.7 fL Low 80.0-100.0 [facility] Comment on above: Performed By: #### 2 275878, 4866610, 0327257, 90553293, 3912967, 0975490 #### [facility] [address] [place] [address] Platelet mean volume (Bld) [Entitic vol] 9.4 fL Normal 6.4-10.8 [facility] Comment on above: Performed By: #### 2 501766, 1842324, 7466210, 71806301, 7294771, 3740990 #### [facility] [address] [place], [place] [address] Platelets (Bld) [#/Vol] 268.0 E9/L Normal 150. 0-500. 0 [facility] Comment on above: Performed By: #### 2 633271, 3899149, 8387358, 07577423, 0630114, 9932914 #### [facility] [address] [place] [address] RBC (Bld) [#/Vol] 5.3 E12/L Normal 4.3-5.9 [facility] Comment on above: Performed By: #### 2 975796, 4381045, 7605401, 31358792, 9392639, 2642013 #### [facility] [address] [place] [address] WBC corrected for nucl RBC Auto (Bld) [#/Vol] 10.6 E9/L Normal 4.0-11.0 [facility] Comment on above: Performed By: #### 2 [id number], [id number], [id number], [id number], [id number], [id number] #### [facility] [address] [place] [address] Creatinineon 12-14-2018 Creatinine [Mass/Vol] 0.7 mg/dL Normal 0.5-1.3 [facility] Comment on above: Performed By: #### 2 [id number], 1960216, [id number], [id number], [id number], [id number] #### [facility] [address] [place] [address] Glucoseon 12-14-2018 Glucose [Mass/Vol] 138 mg/dL Normal 55-199 [facility] Comment on above: Performed By: #### 2 [id number], [id number], [id number], [id number], [id number], [id number] #### [facility] [address] [place] [address] Lyteson 12-14-2018 Anion gap [Moles/Vol] 17 mmol/L High 6-16 [facility] Comment on above: Performed By: #### 2 [id number], [id number], [id number], [id number], 3494812, [id number] #### [facility] [address] [place] [address] Chloride [Moles/Vol] 95 mmol/L Low 101-111 [facility] Comment on above: Performed By: #### 2 836901, 4281986, 5151674, [id number], [id number], [id number] #### [facility] [address] [place] [address] CO2 [Moles/Vol] 26 mmol/L Normal 21-31 [facility] Comment on above: Performed By: #### 2 422621, 5003541, 5207407, 52869263, 6766907, 4988730 #### [facility] [address] [place] [address] Potassium [Moles/Vol] 3.9 mmol/L Normal 3.5-5.3 [facility] Comment on above: Performed By: #### 2 982933, 1604273, 0630889, [id number], 1051661, [id number] #### [facility] [address] [place] [address] Sodium [Moles/Vol] 134 mmol/L Low 135-145 [facility] Comment on above: Performed By: #### 2 784395, 2658126, 4764784, [id number], 5952428, [id number] #### [facility] [address] [place] [address] XR Chest 2 Viewson 9 XR Chest [...] MD Transcribed by: MAGEN Technologist: KRISTYN Normal [facility] eGFRon 12-14-2018 GFR/1.73 sq M predicted among blacks MDRD (S/P/Bld) [Vol rate/Area] mL/min/{1.73_m2} Normal >=59 [facility] Comment on above: Order Comment: Order added by Discern Expert. Result Comment: eGFR is race adjusted. AA=. Performed By: #### 2 044720, 2188170, 7899063, [id number], 6647332, 3503501 #### [facility] [address] [place] [address] GFR/1.73 sq M predicted among non-blacks MDRD (S/P/Bld) [Vol rate/Area] mL/min/{1.73_m2} Normal >=59 [facility] Comment on above: Order Comment: Order added by Discern Expert. Result Comment: Telecommunicator Supervisor stefanie kidney disease could be indicated at eGFR's of less than 60 mL/min/1.73m2. Kidney failure is indicated at less than 15 mL/min/1.73m2. Performed By: #### 2 813973, 2782449, 8530831, [id number], 0096651, [id number] #### [facility] [address] [place] [address] Vital Signs Date Time Vital Sign Value Performing Clinician Facility 09-30-2023 09:36-0400 Body height 165.1 cm PHYSICIAN NO [facility] 09-30-2023 09:36-0400 Body mass index (BMI) [Ratio] 46.2 kg/m2 PHYSICIAN NO [facility] 09-30-2023 09:36-0400 Body temperature 97.6 [degF] PHYSICIAN NO [facility] 09-30-2023 09:36-0400 Body weight 126.09 kg PHYSICIAN NO [facility] 09-30-2023 09:36-0400 Diastolic blood pressure 85 mm[Hg] PHYSICIAN NO [facility] 09-30-2023 09:36-0400 Heart rate 87 /min PHYSICIAN NO [facility] 09-30-2023 09:36-0400 Respiratory rate 20 /min PHYSICIAN NO [facility] 09-30-2023 09:36-0400 SaO2% (BldA) [Mass fraction] 98 % PHYSICIAN NO [facility] 09-30-2023 09:36-0400 Systolic blood pressure 139 mm[Hg] PHYSICIAN NO [facility] 03-02-2023 10:45-0500 Body height 165.1 cm Tyler Jean Other [facility] 03-02-2023 10:45-0500 Body mass index (BMI) [Ratio] 44.76 kg/m2 Tyler Ted Other [facility] Other 03-02-2023 10:45-0500 Body temperature 96.7 [degF] Tyler Ted Other [facility] Other 03-02-2023 10:45-0500 Body weight 122.02 kg Tyler Ted Other [facility] Other 03-02-2023 10:45-0500 Diastolic blood pressure 82 mm[Hg] Tylernirav Jena Other [facility] Other 03-02-2023 10:45-0500 Respiratory rate 18 /min Tyler Jean Other [facility] Other 03-02-2023 10:45-0500 SaO2% (BldA) [Mass fraction] 96 % Tyler Ted Other [facility] Other 03-02-2023 10:45-0500 Systolic blood pressure 136 mm[Hg] Tyler Jean Other [facility] Other 09-21-2022 09:11-0400 Body weight 128.72 kg MANAGER HOSPITALITYNohelia Alvarado Work Phone: [facility] 09-21-2022 09:11-0400 Diastolic blood pressure 91 mm[Hg] MANAGER HOSPITALITY Elizabeth Myerholtz Work Phone: [facility] 09-21-2022 09:11-0400 Heart rate 88 /min MANAGER HOSPITALITY Elizabeth Myerholtz Work Phone: [facility] 09-21-2022 09:11-0400 Respiratory rate 20 /min MANAGER HOSPITALITY Elizabeth Myerholtz Work Phone: [facility] 09-21-2022 09:11-0400 SaO2% (BldA) [Mass fraction] 96 % RHEA Alvarado Work Phone: [facility] 09-21-2022 09:11-0400 Systolic blood pressure 145 mm[Hg] RHEA Alvarado Work Phone: [facility] 08-16-2022 13:57-0400 Body temperature 98 [degF] RHEA Alvarado Work Phone: [facility] 08-16-2022 13:42-0400 Body height 165.1 cm RHEA Alvarado Work Phone: [facility] 07-03-2022 08:14-0500 Body temperature 97.9 [degF] Acosta Schafer MD Work Phone: [employer] 07-03-2022 08:14-0500 Diastolic blood pressure 70 mm[Hg] Acosta Schafer MD Work Phone: [employer] 07-03-2022 08:14-0500 Heart rate 83 /min Acosta Schafer MD Work Phone: [employer] 07-03-2022 08:14-0500 Respiratory rate 18 /min Acosta Schafer MD Work Phone: [employer] 07-03-2022 08:14-0500 SaO2% (BldA) [Mass fraction] 98 % Acosta Schafer MD Work Phone: [employer] 07-03-2022 08:14-0500 Systolic blood pressure 129 mm[Hg] Acosta Schafer MD Work Phone: [employer] 07-02-2022 09:45-0500 Body mass index (BMI) [Ratio] 50.66 kg/m2 Acosta Schafer MD Work Phone: [employer] 07-02-2022 09:45-0500 Body weight 129.73 kg Acosta Schafer MD [facility]: [facility] [employer] 06-24-2022 11:20-0500 Body height 160 cm [facility]loz Rn [facility] [employer] 06-24-2022 11:20-0500 Body mass index (BMI) [Ratio] 50.79 kg/m2 [facility] [employer] 06-24-2022 11:20-0500 Body temperature 97.9 [degF] [facility] [employer] 06-24-2022 11:20-0500 Body weight 130.05 kg [facility]n [facility] [employer] 06-24-2022 11:20-0500 Diastolic blood pressure 87 mm[Hg] [facility] [employer] 06-24-2022 11:20-0500 Heart rate 73 /min [facility] [employer] 06-24-2022 11:20-0500 Respiratory rate 16 /min [facility] [employer] 06-24-2022 11:20-0500 SaO2% (BldA) [Mass fraction] 98 % [facility] Rn [facility] [employer] 06-24-2022 11:20-0500 Systolic blood pressure 142 mm[Hg] [facility] [employer] 05-18-2022 08:46-0500 Body height 165.1 cm Acosta Schafer MD Work Phone: [facility] Work Phone: 05-18-2022 08:46-0500 Body mass index (BMI) [Ratio] 45.93 kg/m2 Acosta Schafer MD Work Phone: [facility] Work Phone: 05-18-2022 08:46-0500 Body surface area Derived from formula 2.27 m2 Acosta Schafer MD Work Phone: [facility] Work Phone: 05-18-2022 08:46-0500 Body weight 125.19 kg Acosta Schafer MD Work Phone: [facility] Work Phone: Encounters Encounter Date Encounter Type Care Provider Facility Start: 09-30-2023 End: 09-30-2023 ambulatory PHYSICIAN NO [facility] Work Phone: Start: 09-30-2023 End: 09-30-2023 Patient encounter procedure PHYSICIAN NO [facility] Ambulatory Work Phone: Start: 09-30-2023 Registered Recurring PHYSICIAN NO ABHIJIT APOLINAR [facility] Acute Work Phone: Start: 09-30-2023 ambulatory Lorrie Baig Facility: [facility] Start: 09-07-2023 End: 09-07-2023 Patient encounter procedure PHYSICIAN NO [facility] [place] Work Phone: Start: 09-07-2023 End: 09-07-2023 ambulatory Elizabeth Alvarado Facility:[facility] Start: 08-24-2023 End: 08-24-2023 Patient encounter procedure RHEA Alvarado Work Phone: [facility] Start: 08-24-2023 End: 08-24-2023 ambulatory Elizabeth Alvarado [facility] Work Phone: Start: 08-24-2023 End: 08-24-2023 Departed Referred MANAGER HOSPITALITY Elizabeth Alvarado Work Phone: [facility] Start: 05-10-2023 End: 05-10-2023 Patient encounter procedure RHEA Alvarado Work Phone: [facility] Work Phone: Start: 05-10-2023 End: 05-10-2023 ambulatory RHEA Alvarado Work Phone: [facility] Work Phone: Start: 03-02-2023 End: 03-02-2023 ambulatory Tyler Jean Other [facility] Other Start: 03-02-2023 Office outpatient vi sit 25 minutes Tyler Ted [facility] Start: 02-14-2023 End: 02-14-2023 ambulatory MANAGER HOSPITALITY Elizabeth Alvarado Work Phone: [facility] Work Phone: Start: 02-14-2023 End: 02-14-2023 Patient encounter procedure RHEA Alvarado Work Phone: [facility]trasound [facility] [place] Work Phone: Start: 01-26-2023 [facility] visit new patient Sindy rubio [facility] Surgery Start: 01-26-2023 End: 01-26-2023 ambulatory MANAGER HOSPITALITYNohelia Alvarado Work Phone: [facility] Other Start: 01-26-2023 End: 01-26-2023 Patient encounter procedure RHEA Alvarado Work Phone: [facility]-XRay [facility] [place] Work Phone: Start: 12-29-2022 Patient encounter procedure Acosta Schafer MD Work Phone: [facility] Work Phone: Start: 12-29-2022 ambulatory Provider Pending Facili ty:[id number] Start: 11-25-2022 End: 11-25-2022 Patient encounter procedure RHEA Alvarado Work Phone: [facility]-Respiratory Therapy Work Phone: Start: 09-22-2022 Patient encounter procedure Acosta Schafer MD Work Phone: [facility] Work Phone: Start: 09-22-2022 ambulatory Provider Pending Facili ty:[id number] Start: 09-21-2022 End: 09-21-2022 ambulatory RHEA Hurley Justinamichelebijupaula Work Phone: [facility] Work Phone: Start: 09-21-2022 End: 09-21-2022 Registered Recurring RHEA Johnson Justinamichelebijupaula Work Phone: [facility]-Cancer Center Work Phone: Start: 08-11-[address] Acosta Schafer Facility:[id number] Start: 08-04-2022 End: 08-04-2022 Discharged Recurring RHEA Johnson Wilianpaula Work Phone: [facility] Start: 07-23-2022 End: 07-23-2022 ambulatory RHEA Hurley Justinamichelebijupaula Work Phone: [facility] Work Phone: Start: 07-23-2022 End: 07-23-2022 Patient encounter procedure RHEA Hornsinghpaula Work Phone: [facility]-Lab [facility] [place] Work Phone: Start: 07-16-2022 Telephone encounter Acosta Crews MD Work Phone: [facility] Work Phone: Start: 07-14-2022 Patient encounter procedure Acosta Schafer MD Work Phone: [facility] Work Phone: Start: 07-14-[address] Acosta Schafer Facility:[id number] Start: 07-07-2022 AUDIT Acosta sow MD Work Phone: [facility] Work Phone: Start: 07-01-2022 ambulatory Provider Pending Facili ty:[id number] Start: 07-01-2022 End: 07-03-2022 Evaluation and management of inpatient ACOSTA Delaney [facility] Start: 07-01-2022 SURGNON, Provider: Acosta Schafer, Status: Pen, Time: 7:00 AM Natali Tyson PT, DPT Work Phone: [facility] Work Phone: Start: 07-01-2022 End: 07-03-2022 Evaluation and management of inpatient Acosta Schafer MD Work Phone: [facility] Comment on above: 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 Merrill martinez [facility] Facility:[id number] Start: 06-25-2022 Encounter for other preprocedural examination Mr. Merrill Hernandez Alejandro [facility] Start: 06-24-2022 End: 06-29-2022 ambulatory ACOSTA SCHAFER [facility] Start: 06-24-2022 End: 06-28-2022 Subsequent hospital visit by physician Juan Manzano Rm 2 Kip Burleson Pre-Admission Testing Start: 05-18-2022 Patient encounter procedure Acosta Schafer MD Work Phone: [facility] Work Phone: Start: 05-18-[address] Acosta Schafer Facility:[id number] Start: 05-07-2022 End: 05-07-2022 Patient encounter procedure RHEA Alvarado Work Phone: [facility]-Electrodiagnostics Work Phone: Start: 04-13-2022 End: 04-13-2022 ambulatory RHEA Alvarado Work Phone: [facility] Work Phone: Start: 04-13-2022 End: 04-13-2022 Patient encounter procedure RHEA Morinbijupaula Work Phone: [facility]-Lab [facility] [place] Start: 12-17-2021 End: 12-17-2021 Patient encounter procedure RHEA Johnson Christiano Work Phone: [facility]-Nuc Med [facility] [place] Start: 12-07-2021 End: 12-07-2021 Patient encounter procedure RHEA Johnson Wilianpaula Work Phone: [facility]Ultrasound [facility] [place] Start: 12-03-2021 End: 12-03-2021 Departed Referred RHEA Johnson Christiano Work Phone: [facility] Procedures Date Procedure Procedure Detail Performing Clinician Start: 09-07-2023 Pelvic echography PHYSI CHIQUI NO FAMILY Start: 09-07-2023 Transvaginal echography PHYSICIAN NO FAMILY Start: 05-10-2023 Screening mammograph y of bilateral breasts RHEA Johnson Christiano Work Phone: Start: 02-14-2023 Duplex scan of lower limb veins RHEA Johnson Justinamichelesaige Work Phone: Start: 01-26-2023 Plain chest X-ray RHEA Johnson Christiano Work Phone: Start: 07-03-2022 BASIC METABOLIC PANE L W/ REFLEX TO MG FOR LOW K Arya Coronado MANAGER HOSPITALITY - HOME SECURITY ALARM INSTALLER Work Phone: Start: 07-03-2022 Blood count complete automated Arya Coronado MANAGER HOSPITALITY - HOME SECURITY ALARM INSTALLER Work Phone: Start: 07-02-2022 Dup-scan xtr veins unilateral/limited study Carlos A Hou DO Work Phone: Start: 07-02-2022 BASIC METABOLIC PANE L W/ REFLEX TO MG FOR LOW K Arya Coronado MANAGER HOSPITALITY - HOME SECURITY ALARM INSTALLER Work Phone: Start: 07-02-2022 Blood count complete automated Adjyoan Coronado MANAGER HOSPITALITY - HOME SECURITY ALARM INSTALLER Work Phone: Start: 07-01-2022 Radiologic examinati on knee 1/2 views Arya Coronado MANAGER HOSPITALITY - HOME SECURITY ALARM INSTALLER Work Phone: Start: 07-01-2022 End: 07-01-2022 Revj [...] Start: 12-17-2021 Radionuclide three-p hase bone study MANAGER HOSPITALITYNohelia Alvarado Work Phone: Start: 12-07-2021 US scan of thyroid MANAGER HOSPITALITYNohelia Alvarado Work Phone: Start: 02-01-2019 Anesthesia consultation Start: 01-24-2019 Anesthesia consultation Plan of Treatment Date Care Activity Detail Author Start: 06-29-2023 FUV, Provider: Acosta Schafer, Status: Pen, Time: 2:15 PM FUV, Provider: Acosta Schafer, Status: Carlyle, Time: 2:15 PM -[facility] [place] Work Phone: Start: 02-17-2023 Screening for malign ant neoplasm of colon [facility] Start: 12-29-2022 FUV, Provider: Acosta Schafer, Status: Pen, Time: 1:45 PM FUV, Provider: Acosta Schafer, Status: Pen, Time: 1:45 PM [facility] Work Phone: Start: 08-11-2022 FUV, Provider: Acosta Schafer, Status: Pen, Time: 9:45 AM FUV, Provider: Acosta Schafer, Status: Pen, Time: 9:45 AM [facility] Work Phone: Start: 07-23-[address] [facility] Start: 07-14-2022 POV, Provider: Acosta Schafer, Status: Pen, Time: 9:00 AM POV, Provider: Acosta Schafer, Status: Pen, Time: 9:00 AM [facility] Work Phone: Start: 07-01-2022 End: 07-01-2022 Admission to same day surgery center 07/01/2022 Surgery IP Unit Acosta Schafer MD [address] [place] [address] RIGHT KNEE RIGHT TOTAL KNEE REVISION INSTRUMENTATION ANTONELLA FEMORAL & SCIATIC BLOCK [facility] Comment on above: RIGHT KNEE RIGHT TOT AL KNEE REVISION INSTRUMENTATION ANTONELLA FEMORAL & SCIATIC BLOCK Start: 07-01-2022 End: 07-01-2022 Revj total knee arthrp w/wo algrft 1 component KNEE TOTAL ARTHROPLASTY REVISION Loosening of unicondylar knee replacement (HCC) 07/01/2022 10:50 AM [facility] Start: 07-01-2022 Subsequent hospital visit by physician 07/01/2022 Hospital Encounter IP Unit Acosta Schafer MD [address] [place] [address] [facility] Start: 07-01-2022 SURGNONUH, Provider: Acosta Schafer, Status: Pen, Time: 7:00 AM SURGNONUH, Provider: Acosta Schafer, Status: Pen, Time: 7:00 AM [facility] Work Phone: Start: 06-25-2022 PREADMIT, Provider: Merrill Alejandro, Status: Pen, Time: 1:45 PM PREADMIT, Provider: Merrill Alejandro, Status: Pen, Time: 1:45 PM [facility] Work Phone: Start: 06-25-2022 [id number], Provider : Natali Tyson, Status: Pen, Time: 1:00 PM [id number], Provider: Natali Tyson, Status: Pen, Time: 1:00 PM [facility] Work Phone: Start: 06-24-2022 Annual Wellness Visi t (AWV) Annual Wellness Visit (AWV) [facility] Start: 12-17-2021 Radionuclide three-p hase bone study NM bone [address] [facility] Start: 12-17-2021 End: 12-17-2021 Patient encounter procedure Departed [facility] [place] Start: 12-07-2021 US scan of thyroid US thyroid [facility] Start: 12-07-2021 End: 12-07-2021 Patient encounter procedure Departed [facility] [place] Start: 11-23-2021 Influenza vaccination Flu vaccine (# 1) [facility] Start: 05-18-2021 COVID-19 Vaccine (4 - Booster for Moderna series) COVID-19 Vaccine (4 - Booster for Moderna series) [facility] Start: 02-23-2018 Screening for malign ant neoplasm of breast Breast cancer screen [facility] Start: 02-23-2018 Shingles vaccine (1 of 2) Shingles v accine (1 of 2) [facility] Start: 02-23-2013 Screening for malign ant neoplasm of colon [facility] Start: 2008 Lipid panel Lipids [facility] [employer] Start: 02-23-2003 Diabetes screen Diabetes screen [facility] [employer] Start: 02-23-1998 Screening for malign ant neoplasm of cervix [facility] [employer] Start: 02-23-1989 Screening for malign ant neoplasm of cervix Pap smear [facility] Start: 02-23-1987 DTaP/Tdap/Td vaccine (1 - Tdap) DTaP/Tdap/Td vaccine (1 - Tdap) [facility] [employer] Start: 02-23-1986 Hepatitis C screening Hepatitis C sc reen [facility] Start: 02-23-1983 HIV screening HIV screen [facility] Start: 1980 Depression Screen Depression Screen [facility] [employer] Start: 1968 COVID-19 Vaccine (#1) COVID-19 Vacci ne (#1) [facility] [employer] End: 07-04-2022 Basic Metabolic Panel w/ Reflex to MG Basic Metabolic Panel w/ Reflex to MG Lab Routine Daily for 3 Days starting 07/02/2022 until 07/04/2022, 2 completed [facility]: Comment on above: Daily for 3 Days sta rting 07/02/2022 until 07/04/2022, 2 completed End: 07-04-2022 CBC panel - Blood by Automated count CBC Lab Routine Daily for 3 Days starting 07/02/2022 until 07/04/2022, 2 completed [facility] [employer] Phone: Comment on above: Daily for 3 Days sta rting 07/02/2022 until 07/04/2022, 2 completed Comprehensive metabo lic 2000 panel - Serum or Plasma [facility] Comprehensive metabo lic 2000 panel - Serum or Plasma [facility] IgA [Mass/volume] in Serum or Plasma [facility] IgG [Mass/volume] in Serum or Plasma [facility] IgM [Mass/volume] in Serum or Plasma [facility] Oxygen therapy [[facility]ini [facility] Data Set] Initiate Oxygen Therapy Protocol Respiratory Care Routine Daily until discontinued starting 07/01/2022 [facility] [employer] Phone: Comment on above: Daily until disconti nued starting 07/01/2022 Spirometry panel Incentive tonja metry Respiratory Care Routine Every 2hr while awake until discontinued starting 07/01/2022 JULIO REICH [employer] Work Phone: Comment on above: Every 2hr while awak e until discontinued starting 07/01/2022 [facility] Immunizations Immunization Date Immunization Notes Care Provider Fa cility 03-16-2016 influenza virus vaccine, unspecified formulation RHEA Alvarado Work Phone: [facility] 03-16-2016 influenza, injectabl e, quadrivalent, preservative free Sindy Davila Other [employer] Other Payers Date Payer Category Payer Private Health Insurance [id number] 2022 Medicaid [id number] 2022 Medicare [id number] 2022 Private Health Insurance [id number] 2022 Self-pay [id number] 2014 Private Health Insurance [id number] 1968 Unknown [id number] 2..[id number]. 182 1968 Unknown [id number] 2.16.840.1.628597.3.579.2. 182 1968 Unknown [id number] 2.16.840.1.598363.3.579.2. 356 1968 Unknown [id number] 2.16.840.1.132698.3.579.2. 1068 1968 Unknown [id number] 2.16.840.1.202853.3.579.2. 1068 1968 Unknown [id number] 2.16.840.1.296850.3.579.2. 1067 1968 Unknown [id number] 2.16.840.1.407879.3.579.2. 1067 1968 Unknown [id number] 2.16.840.1.433165.3.579.2. 1067 1968 Unknown [id number] 2.16.840.1.151318.3.579.2. 1067 1968 Unknown [id number] 2.16.840.1.546590.3.579.2. 1068 Medicare [id number] Medicare [employer] Dual Adv JR [id number] Unknown [facility] DUAL COMPLETE Unknown [id number] 2.16.840.1.206456.3.579.2. 531 Unknown [id number] 2.16.840.1.215917.3.579.2. 531 Unknown [id number] 2.16.840.1.805321.3.579.2. 531 Unknown [id number] 2.16.840.1.568635.3.579.2. 531 Unknown [id number] 2.16840.1.872682.3.579.2. 531 Social History Date Type Detail Facility Start: 06-03-2017 End: 09-21-2022 Tobacco smoking status NHIS Never smoked tobacco (finding) [facility] Start: 1970 Sex Assigned At Female F [facility] Start: 06-24-2022 Tobacco use and exposure Smokeless tobacco non-user JULIO [employer] Phone: Start: 06-24-2022 End: 03-10-2023 Alcohol intake Current drinker of alcohol (finding) JULIO [employer] Phone: Start: 06-24-2022 Alcohol Comment occasional BON [employer] Phone: Start: 1970 Sex Assigned At Not on file B ON [employer] Phone: Start: 06-14-2022 End: 06-24-2022 Exposure to SARS-CoV-2 (event) Not sure JULIO [employer] Phone: Sex Assigned At Sex Assigned At Bir th Twyxt Other Medical Equipment Procedure Code Equipment Code Equipment Origin al Text Equipment Identifier Dates Cement Bioprep S t - [id number] Start: 07-01-2022 Stem Tib [id number] [id number] Knee Tot Stbl Joey Roberta Triathlon - [id number] , [id number] FDA Start: 07-01-2022 Clinical Notes [...] of both lower extremities (ICD-10 - I87.303) Twyxt Other 10-04-2023 Evaluation note* Encounter Date Diagnosis [...] Bilateral lower extremity edema (ICD-10 - R60.0) Twyxt Other 04-24-2023 Consult note Author Zoey Ramirez [facility] August 16, 2022 3:19pm Note Date/Time August 16, 2022 2:2 0pm [facility] [place] [address] Hem/Onc Consult Note - OP Signed Patient: Geeta Shelton MR#: [id number] : 1970 Acct:[id number] Age/Sex: 52 / F Type: REG RCR Copies to: Elizabeth Alvarado APRN,HOME SECURITY ALARM INSTALLER Lorrie Baig DO~ HPI Date/Time of Service: Date of Service: 08/16/2022 Time of Service: 14:19 Referring Provider/PCP: Referring Provider: Lorrie Baig DO PCP: Elizabeth Alvarado APRN, LOAN UNDERWRITER-C - History of Present Illness Reason for [...] and/or blood disorder. No history of thrombosis. COUNT INCLUDES THE [facility] - Medical History Medical History: Medical [...] Additional comments: Patient: Geeta Shelton MR#: [id number] : 1970 Acct:[id number] Age/Sex: 51 / F ADM Date: 2 Loc: [place] [facility]: [facility] Attending Dr: Tyler Villeda PA-C Copies to: CARLI Noyola Jeffrey S DO~ Ordering Provider: Tyler Villeda PA-C Date of Service: 12/17/21 AK/AK bone 3 phase: M25.562, M25.561 Nuclear medicine [...] the knee hardware bilaterally. This may bepostsurgical. AK/AK bone 3 phase IMPRESSION: Intense uptake of [...] for coordination of care (as documented) and dtwa-rd-[id number] counseling of patient and/or family. Dictated By: Zoey Ramirez APRN DD/ 1419 Signed By: <Electronically signed by RHEA Ramirez> 08/16/22 7514 [facility] Work Phone: [phone]) 374-308203-11-2023 History of Present illness Narrative* Sosa Poon [...] tape after removal as ordered. Patient has [facility] set up. Knee immobilizer sent with [...] Therapy Med Surg Daily Treatment Note Facility/Department: [address] ORTHO TELE Room: [facility]/[place] [address] NAME: Geeta Shelton : 1970 (52 y.o.) [...] Recommendations: Continue to assess pending progress Goals Snf Goals Snf Goal 1: Bed mobility with indep Lining Finisher Goal 2: Functional transfes with indep Snf Goal 3: Amb 50ft with 2ww and indep Snf Goal 4: 4 steps with handrail and SBA Snf Goal 5: indep with HEP to improve [...] Therapy Med Surg Daily Treatment Note Facility/Department: [address] ORTHO TELE Room: [facility]/W268-01 NAME: Geeta Shelton : 1970 (52 y.o.) [...] get up to the bathroom Pain Pain: 07/02 pain pre/post session OBJECTIVE: Bed mobility Supine [...] Recommendations: Continue to assess pending progress Goals Snf Goals Lining Finisher Goal 1: Bed mobility with indep Lining Finisher Goal 2: Functional transfes with indep Lining Finisher Goal 3: Amb 50ft with 2ww and indep Snf Goal 4: 4 steps with handrail and SBA Lining Finisher Goal 5: indep with HEP to improve LE strength and ROM Patient Goals Patient Goals : to go home PLAN General Plan: 2 times a day 7 days a week Safety Devices Type of Devices: All fall risk precautions in place, Call light within reach, Left in bed, Bed alarm in place, Nurse notified [facility] (6 CLICK) BASIC MOBILITY AM-PAC Inpatient [...] to accomplish the task * Arya Coronado, RHEA - HOME SECURITY ALARM INSTALLER - 07/02/2022 9:49 AM EST Progress Note [...] shift change after receiving bedside report from KIP Horne Pt AO4, no acute distress noted at [...] pack per his order. * Mic Aparicio FOOD PHOTOGRAPHER - 07/01/2022 5:51 PM EST Images from [...] puffs by inhalation with spacer [] Ipratropium Hillside 0.02% unit dose by aerosol Ipratropium Hillside MDI 2 puffs by inhalation with spacer [] Duoneb (Ipratropium + Albuterol) unit dose by aerosol Ipratropium MDI + Albuterol MDI 2 puffs byinhalation w/spacer MDI to Aerosol [] Albuterol Sulfate MDI Albuterol Sulfate 0.083% unit dose by aerosol [] Levalbuterol MDI 2 puffs by inhalation Levalbuterol 1.25 mg unit dose by aerosol [] Ipratropium [place]side MDI by inhalation Ipratropium [place]side 0.02% unit dose by aerosol [] Combivent (Ipratropium + Albuterol) MDI by inhalation Duoneb (Ipratropium + Albuterol) unit doseby aerosol Treatment Assessment [Frequency/Schedule]: Change frequency to: NO CHANGE per Protocol, P&T, [facility] Points 0 1 2 3 4 [...] Q2 PRN 5. (0-5) Freq Q4prn * HAWA Anderson/Orin - 07/01/2022 4:05 PM EST NAM WONG OCCUPATIONAL THERAPY EVALUATION - ACUTE NAME: Geeta Shelton : 1970 (52 y.o.) CODE STATUS: Full Code Room: [place] [address] Date of Service: 07/01/2022 Patient Diagnosis(es): Loosening [...] Ambulation Assistance: Independent Transfer Assistance: Independent Active Manager Shipping: Yes Mode of Transportation: Car OBJECTIVE: Orientation Status: Orientation Overall Orientation Status: Within Functional Limits Orientation Level: Oriented X4;Oriented to place;Oriented to time;Oriented to situation;Oriented toperson Observation: Observation/Palpation Posture: Good Observation: right knee incision with bandage and knee immobilizer in place Cognition Status: Cognition Overall Cognitive Status: [facility] Cognition Comment: Follows commands consistently Perception Status: Perception Overall Perceptual Status: WF Vision and Hearing Status: Vision Vision Exceptions: [...] 6 complexities Assistance / Modification: Mod A [facility] (Six Click) Self care Score How [...] How much help for eating meals?: None -[facility] Inpatient Daily Activity Raw Score: 19 AM-[facility] Inpatient ADL T-Scale Score : 40.22 [...] 15 Eval: 15 minutes Electronically signed by: HAWA Anderson/Orin, 07/01/2022, 4:07 PM * Esther Bland, PT - 07/01/2022 4:03 PM EST Physical Therapy Med Surg Initial Assessment Facility/Department: [address] TELE Room: [place] [address] NAME: Geeta Shelton : 1970 (52 y.o.) [...] Ambulation Assistance: Independent Transfer Assistance: Independent Active Manager Shipping: Yes Mode of Transportation: Car OBJECTIVE: Vision [...] Goals: Patient Goals : to go home Lining Finisher Goals Snf Goal 1: Bed mobility with indep Snf Goal 2: Functional transfes with indep Snf Goal 3: Amb 50ft with 2ww and indep Lining Finisher Goal 4: 4 steps with handrail and SBA Lining Finisher Goal 5: indep with HEP to improve LE strength and ROM [facility] (6 CLICK) BASIC MOBILITY AM-PAC Inpatient Mobility Raw Score : 15 Therapy Time: Individual Time In 1542 Time Out 1558 Minutes 16 Esther Bland, PT, 07/01/22 at 4:18 PM Definitions for [...] accomplish the task documented in [facility] [employer] Work Phone: 1(587) 979-583403-09-2023 History of Present illness Narrative* History of [...] she will most likely do this at [facility] in [place]. * Physical exam * General: No acute [...] see dictated x-ray report * Procedure * [place] removed Steri-Strips placed without complication * Assessment [...] grammatical areas may persist related to the [employer] software * Merrill Alejandro PA-C * . [facility] Work Phone: 1(911) 979-382303-07-2023 Hospital Discharge instructions* Discharge Instructions* Arya Coronado APRN - ARELI - 06/29/2022 11:33 AM EST Total Knee [...] Hospital Unit/Room#: W268/W268-01 Discharging Unit Phone Number: [phone] Emergency Contact: Extended Emergency Contact Information Primary Emergency Contact: kena travis Evans Relation: Other Past Surgical History: Past Surgical [...] Assisted Dressing Assisted Toileting Independent Feeding Independent Tripe Washer Independent Med Delivery whole Wound Care Documentation and Therapy: Negative Pressure Wound Therapy Knee Anterior;Right (Active) Wound Type Surgical 07/02/222099 Dressing Type Other (Comment) 07/02/22 09 Target Pressure (mmHg) 125 07/01/22 1831 Dressing Status Clean, dry & intact 07/02/222099 Drainage Amount None 07/02/22 2100 Output (ml) 0 ml 07/01/22 1325 Odor None 07/02/22 0900 Number of days: 1 Incision 07/01/22 Knee Anterior;Right (Active) Dressing Status Clean;Dry;Intact 07/02/222099 Incision Cleansed Not Cleansed 07/01/221942 Dressing/Treatment [place] wrap;Cast padding 07/01/22 194 Margins Other (Comment) 07/01/221942 Incision Assessment Other (Comment) 07/01/22 194 Drainage Amount None 07/02/22 2100 Odor None [...] applicable) Name: Address: Dialysis Schedule: Phone: Fax: Bucket Chucker/Ios Developer signature: {Esignature:821974275} PHYSICIAN SECTION Prognosis: {Prognosis:4052270940} Condition at Discharge: {MH Patient Condition:343709158} Rehab Potential (if transferring to Rehab): {Prognosis:5610663475} Recommended Labs or Other Treatments After Discharge: Physician Certification: I certify the above information and transfer of Geeta Shelton is necessary for the continuing treatment of the diagnosis listed and that she requires {Admit to AppropriateLevel of Care:80204} for {GREATER/LESS:948087100} 30 days. Update Admission H&P: {CHP DME Changes in HandP:977977753} PHYSICIAN SIGNATURE: {Esignature:872945412} * Attachments The following attachments cannot be sent through Care Everywhere. * Total Knee Replacement Surgery: General Info (Yemeni) * Wound: VAC (Vacuum-Assisted Closure) (Yemeni) documented in this encounterBERKSHIRE MEDICAL CENTERAllurent Phone: 1(916) 165-152103-02-2023 History of Present illness Narrative* Sindy Pelaez RN - 06/24/2022 11:10 AM EST Yellow PAT and Dynahex instruction sheet reviewed with patient, who verbalized understanding. documented in this encounterBERKSHIRE MEDICAL CENTERAnaptysBio [facility] [employer] Phone: evaluation noteNo assessment information available [facility] Work Phone: Evaluation note* Diagnosis Status post revision of total knee replacement, right- Primary Status post revision of total replacement of right knee Acute postoperative pain Other acute postoperative pain documented in this encounter [facility] Work Phone: evaluation note* Diagnosis Onset Date Resolution Status MGUS (monoclonal gammopathy of unknown significance) acute Microcytosis acute Peripheral neuropathy acute [facility] Work Phone: Evaluation note* Diagnosis Onset Date Resolution Status MGUS (monoclonal gammopathy of unknown significance) acute Microcytosis acute Peripheral neuropathy acute MGUS (monoclonal gammopathy of unknown significance) acute [facility] Work Phone: History general Narrative - Reported* Type Description Date Medical History asthma Medical History snoring Medical History Allergic Rhinitis Medical History Essential Hypertension Surgical History Revise/Replace left knee joint Surgical History Varicose Veins 2010 Surgical History Right ankle surgery Hospitalization History See above Twyxt Other History of Present illness Narrative* New [...] grammatical areas may persist related to the [employer] software * Acosta Schafer MD * Senior Attending Physician * [facility] [place] * . -[facility] Work Phone: History of Present illness Narrative* [...] grammatical areas may persist related to the [employer] software * Acosta Schafer MD * Senior Attending Physician * [facility] [place] * . -[facility] Work Phone: History of Present illness Narrative* [...] will be re-assessed and goals updated. [facility] Work Phone: History of Present [...] will be re-assessed and goals updated. [facility] Work Phone: History of Present illness Narrative* [...] grammatical areas may persist related to the [employer] software * Acosta Schafer MD * Senior Attending Physician * [facility] [place] * . -[facility] Work Phone: History of Present illness Narrative* [...] grammatical areas may persist related to the [employer] software * Merrill Alejandro PA-C * . -[facility] Work Phone: Progress note Author Krzysztof Salazar [facility] September 21, 2022 9:52am Note Date/Time September 21, 2022 9:49a m [facility] [place] [address] Hem/Onc Follow Up Note - OP Signed Patient: Geeta Shelton MR#: [id number] : 1970 Acct:[id number] Age/Sex: 52 / F Type: REG RCR Copies to: Elizabeth Alvarado APRN,HOME SECURITY ALARM INSTALLER Lorrie Baig,~ Date of Service: 09/21/2022 Time of Service: [...] concerns at this time. HPI: Dear Dr. aBig, I have seen your patient in consultation [...] for coordination of care (as documented) and exyp-rd-xuug counseling of patient and/or family. COUNT INCLUDES [facility] - Medical History Medical History: Medical [...] Dictated By: Krzysztof Salazar II, DO DD/ Signed By: <Electronically signed by Krzysztof Salazar, II, DO> 09/21/22 0952 [facility] Work Phone: Reason for visit Narrative* Initial Evaluation, Pre-Op . * Referred by: Dr. Acosta Schafer [facility] Work Phone: Reason for visit Narrative* Initial Evaluation, Pre-Op . * Referred by: Dr. Acosta Schafer [facility] Work Phone: Summary Purpose Family [...] total replacement of right knee Born, Arya RamirezRHEA cedeño - HOME SECURITY ALARM INSTALLER [address] [place] [address] Referral ID Status Reason Start Date Expiration Date V isits Requested Visits Authorized [id number] Open Specialty Services Required 07/01/2022 07/01/2023 1 1 Question Answer I certify that I, or a nurse practitioner or physician promotions assistant working with me, had an in-person encounter with the patient and the reason for the home care services is documented in the clinical note on: 07/01/2022 Will the referring provider be the attending provider for home health? [place] of attending provider for home health Dr. [...] content) DATE CREATED AUTHOR 02/01/2019 Rober Baumann [facility] DATE CREATED AUTHOR AUTHOR'S ORGANIZ ATION 07/04/2022 [facility] DATE CREATED AUTHOR AUTHOR'S ORGANIZ ATION 07/08/2022 [facility] DATE CREATED AUTHOR AUTHOR'S ORGANIZ ATION 12/30/2022 [facility] DATE CREATED AUTHOR AUTHOR'S ORGANIZ ATION 01/09/2023 [facility] DATE CREATED AUTHOR AUTHOR'S ORGANIZ ATION 02/19/2024 [facility] DATE CREATED AUTHOR AUTHOR'S ORGANIZ ATION [facility] Teams (unrecognized sec tion and content) Team Status: Active Member Role Status Dates Elizabeth Alvarado APRN LOAN UNDERWRITER-C Primary Care Provide r Active Team Status: Inactive Member Role Status Dates Elizabeth Alvarado , RHEA LOAN UNDERWRITER-C Primar y Care Provider, Attending Provider Active Team Status: Inactive Member Role Status Dates Elizabeth Alvarado APRN LOAN UNDERWRITER-C Primary Care Provide r Active Lorrie Baig DO Attending Provider Active Team Status: Inactive Member Role Status Dates Elizabeth Alvarado , RHEA LOAN UNDERWRITER-C Primary Care Provide r Active JEREMIAS Cavazos-C Attending Provider Active Team Status: Inactive Member Role Status Dates Elizabeth Alvarado APRN LOAN UNDERWRITER-C Attending Provider A ctive Services [facility] Primary Care Provider Active Medical Office Receptionist Relationship Specialty Start Date End Date Elizabeth Alvarado PCP - General 07/01/22 Team Status: Active Member Role Status Dates Elizabeth Alvarado APRN LOAN UNDERWRITER-C Primary Care Provide r Active Zoey Ramirez APRN Attending Provider Active Lorrie Baig DO Referring Provider Active Team Status: Inactive Member Role Status Dates Elizabeth Alvarado APRN LOAN UNDERWRITER-C Primary Care Provide r Active Acosta Schafer Attending Provider Active Team Status: Inactive Member Role Status Dates Elizabeth Alvarado APRN LOAN UNDERWRITER-C Primary Care Provide r Active Sindy Davila NP-C Attending Provider Active Team Status: Inactive Member Role Status Dates Elizabeth Alvarado , RHEA LOAN UNDERWRITER-C Attending Provider A ctive Start: August 24, 2023 End: August 24, 2023 Team Status: Active Member Role Status Dates PHYSICIAN NO FAMILY Primary Care Provider Active Team Status: Inactive Member Role Status Dates Elizabeth Alvarado APRN LOAN UNDERWRITER-C Attending Provider A ctive Start: September 07, 2023 End: September 07, 2023 PHYSICIAN NO FAMILY Primary Care Provider Active Start: September 07, 2023 End: September 07, 2023 Team Status: Active Member Role Status Dates Elizabeth Alvarado APRN LOAN UNDERWRITER-C Primary Care Provide r Active Start: September 30, 2023 Zoey Ramirez APRN Active Start: September 30, 2023 Lorrie Baig DO Referring Provider Active Sta rt: September 30, 2023 Krzysztof Salazar II, DO Attending Provider Active Start: September 30, 2023 Team Status: Inactive Member Role Status Dates Elizabeth Alvarado APRN LOAN UNDERWRITER-C Primary Care Provide r Active Start: September 30, 2023 End: September 30, 2023 Holli Soriano APRN Attending Provider Lydia campbell Start: September 30, 2023 End: September 30, [...] By Swapna rich Referred To Contact Diagnoses 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 FL REVJ TOTAL KNEE ARTHRP W/WO ALGRFT 1 COMPONENT FL REVJ TOT KNEE ARTHRP FEM&ENTIRE TIBIAL COMPONE RIGHT KNEE RIGHT TOTAL KNEE REVISION INSTRUMENTATION ANTONELLA FEMORAL & SCIATIC BLOCK Acosta Schafer MD [address] [place] [address] [facility] [address] [place] [address] Referral ID Status Reason Start Date Expiration Date Visits Re quested Visits Authorized [id number] 1 1 Ordered Prescriptions (unrec ognized section [...] Provider: Joy Og RCP - Reason: Other) 07 (Given - Provider: Lizzie Aponte RCP)1999 (Due) celecoxib (CELEBREX) capsule 200 mg (COMPLETED) 200 mg, Oral, ONCE, 1 dose, On Renee 07/01/22 at 0845, Pre-op, Pre-op (day of surgery) 904 (Given - Provider: Rodolfo Chacko RN) ketorolac [...] 09 (Given - Provider: Sosa Poon RN) 0812 (Given - Provider: Sosa Poon, KIP) oxyCODONE (OXYCONTIN) extended release tablet 10 mg (COMPLETED) 10 mg, Oral, ONCE, 1 dose, On Renee 07/01/22 at 0845, Do not crush or break., Pre-op (day of surgery) 904 (Given - Provider: Rodolfo Chacko RN) rivaroxaban [...] on Renee 07/01/22 at 2100, Until Discontinued 2313 (Given - Provider: Fouzia Ramos RN) 09 (Given - Provider: Sosa Poon RN)2057 (Given - Provider: Stefany Valdes, KIP) 08 (Given - Provider: Sosa Poon RN)2099 (Due) sennosides-docusate sodium (SENOKOT-S) 8.6-50 MG tablet 1 tablet 1 tablet, Oral, 2 TIMES DAILY, First dose on Renee 07/01/22 at 2100, Until Discontinued, Post-op 223 (Given - Provider: Fouzia Ramos RN) 902 (Given - Provider: Sosa Poon RN)2057 (Not Given - Provider: Stefany Valdes RN - Reason: Patient/family refused) 812 (Held - Provider: Sosa Poon RN - [...] Sosa Poon RN - Reason: IV Fluid Infusing)2099 (Given - Provider: Stefany Valdes RN) 812 (Given - Provider: Sosa Poon RN)2099 (Due) tranexamic acid (LYSTEDA) tablet 1,950 mg [...] at 250 mL/hr, Administer over 60 Minutes, FIELD CROP TECHNICAL OFFICER TO O.R., On Renee 07/01/22 at 0845, [...] Poon, KIP) 0812 (Given - Provider: Sosa Poon, KIP) Continuous Medication Order 07/01/2022 07/02/2022 07/03/2022 lactated [...] Provider: Rodolfo Chacko RN)1100 (NoRateChange - Provider: RHEA Adrian CRNA)1311 (Anesthesia Volume Adjustment - Provider: RHEA Adrian CRNA)1324 (Anesthesia Volume Adjustment - Provider: RHEA Adrian [...] Valdes RN)0813 (See Alternative - Provider: Sosa Poon, KIP) oxyCODONE (ROXICODONE) immediate release tablet 5 mg(Linked Group 2) 5 mg, Oral, EVERY 4 HOURS PRN, Starting on Renee 07/01/22 at 1502, Until Discontinued, Pain Moderate (4-6), Post-op 1857 (Given - Provider: Ozzie Carpenter, RN) 0235 (See Alternative - Provider: Fouzia Ramos RN)0602 (Given - Provider: Fouzia Ramos RN)1254 (Given - Provider: Sosa Poon, KIP)1803 (Given - Provider: Sosa Poon, KIP) 0354 (See Alternative - Provider: Stefany Valdes [...] BE BASED ON THE PRIMARY CLINICAL RECORDS. [employer] [facility]. provides no warranty or guarantee of the accuracy or completeness of information in this document.
== END 2024-07-18 09:33 | disposition home or self-care (01) ==
LOC: WC 09:32
PROVIDERS: Visit Provider Physician Assistant
DX: E11.621 Type 2 diabetes mellitus with foot ulcer (principal); L97.412 Non-pressure chronic ulcer of right heel and midfoot with fat layer exposed
CPT/HCPCS: 11043

== ENCOUNTER 2024-08-01 09:00 | Outpatient (OUT) | payer MEDICARE, MEDICAID, SELFPAY | END 2024-08-01 09:01 | disposition home or self-care (01) | LOC: WC 13:43 | PROVIDERS: Visit Provider Physician Assistant | DX: E11.621 Type 2 diabetes mellitus with foot ulcer (principal); L97.412 Non-pressure chronic ulcer of right heel and midfoot with fat layer exposed | CPT/HCPCS: 11043 ==

== ENCOUNTER 2024-08-22 09:35 | Outpatient (OUT) | payer MEDICARE, MEDICAID, SELFPAY | END 2024-08-22 09:36 | disposition home or self-care (01) | LOC: WC 09:35 | PROVIDERS: Visit Provider Physician Assistant | DX: E11.621 Type 2 diabetes mellitus with foot ulcer (principal); L97.412 Non-pressure chronic ulcer of right heel and midfoot with fat layer exposed | CPT/HCPCS: 11043 ==

== ENCOUNTER 2024-09-12 08:55 | Outpatient (OUT) | payer MEDICARE, MEDICAID, SELFPAY ==
--- OUTSIDE RECORDS SUMMARY | 2024-09-12 09:06 | XMS_ITS | CCD ---
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 Acosta Tyson Attending Un available [...] MARII Davila Attending Provider Tyler Jean Unavailable HREA Alvarado Primary Care Provide r MARII Davila Attending Provider RHEA Alvarado Attending Provider RHEA Alvarado Attending Provider NO FAMILY, PHYSICIAN Primary Care Provider Unava ilable RHEA Alvarado Primary Care Provide r DO Lorrie Baig Referring Provider [phone] Marie II, DO Krzysztof Prince Attending Provider [...] source) Ibuprofen Drug Allergy 4 Unknown Reaction [facility] Penicillins (antibiotic) (2 sources) Penicillin Drug Allergy 4 [facility] (20 sources) Penicillins; Translations: [Penicillins] Allergy to substance 8 Anaphylaxis [facility] (6 sources) Ibuprofen; Translations: [ibuprofen] Drug Allergy 3 Unknown Reaction [facility] (3 sources) Penicillin V Drug Allergy 3 [facility] (1 source) Penicillin Drug Allergy 4 [facility] Repository Medications Current Medications Medication Drug Class(es) Dates Sig (Normalized) Sig (Original) acetaminophen 325 mg oral tablet (2 sources) Start: 07-01-2022 acetaminophen (TYLENOL) tablet 650 mg Start: 07-01-2022 End: 07-01-2022 acetaminophen (TYLENOL) tabl et 1,000 mg [id number] 200 actuat albuterol 0.09 mg/actuat metered dose [...] oral tablet (1 source) Angiotensin 2 Receptor Kawdwo Start: 01-26-20 22 take 1 tablet by [...] disintegrating tablet 4 mg polyethylene glycol 3350 31585 mg powder for oral solution (1 source) [...] break. Start: 12-03-2021 take 1 capsule by [facility] once daily venlafaxine (EFFEXOR XR) 75 MG [...] Range Facility Outside Recordson 06-11-2024 Outside Records [id number]#1.00OTGTI [facility] Rad - Other Radiology Report on 06-11-2024 Rad - Other Radiology Report [id number]#.[facility] [id number][facility] Alanine aminotransferase [En zymatic activity/volume] in Serum or PlasmaOrdered By: Krzysztof Salazar on 09-20-2023 ALT [Catalytic activity/Vol] 33 U/L Normal 7-52 [facility] Comment on above: Performed By: #### F ER, CMP, CBC, FE and TIBC #### [facility] [address] [place] [address] [place] #### TOMA SERUM, SPE, KAPPA #### [facility] , Albumin [Mass/volume] in Ser um or PlasmaOrdered By: Krzysztof Salazar on 09-20-2023 Albumin [Mass/Vol] 3.8 g/dL Normal 2.9-4.4 [facility] Comment on above: Performed By: #### F ER, CMP, CBC, FE and TIBC #### [facility] [address] [place] [address] [place] #### TOMA SERUM, SPE, KAPPA #### [facility] , Albumin [Mass/volume] in Ser um or Plasma by Bromocresol green (BCG) dye binding methoOrdered By: Krzysztof Salazar on 09-20-2023 Albumin BCG dye [Mass/Vol] 4.2 g/dL 3.5-5.7 [facility] Alkaline phosphatase [Enzyma tic activity/volume] in Serum or PlasmaOrdered By: Krzysztof Salazar on 09-20-2023 ALP [Catalytic activity/Vol] 79 U/L Normal 34-104 [facility] Comment on above: Performed By: #### F ER, CMP, CBC, FE and TIBC #### [facility] [address] [place] [address] [place] #### TOMA SERUM, SPE, KAPPA #### [facility] , Aspartate aminotransferase [ Enzymatic activity/volume] in Serum or PlasmaOrdered By: Krzysztof Salazar on 09-20-2023 AST [Catalytic activity/Vol] 30 U/L Normal 13-39 [facility] Comment on above: Performed By: #### F ER, CMP, CBC, FE and TIBC #### [facility] [address] [place] [address] [place] #### TOMA SERUM, SPE, KAPPA #### [facility] , Automated basophil %Ordered By: Krzysztof Salazar on 09-20-2023 Basophils/100 WBC (Bld) 0.5 % Normal . [facility] Comment on above: Performed By: #### F ER, CMP, CBC, FE and TIBC #### [address] #### TOMA SERUM, SPE, KAPPA #### [facility] , Automated basophil countOrde red By: Krzysztof Salazar on 09-20-2023 Basophils (Bld) [#/Vol] 0.0 10*3/uL Normal 0.0-0.2 [facility] Comment on above: Result Comment: PERF ORMED BY: [place] [address] PATHOLOGIST LIQUID FERTILIZER SERVICER MELODY ELAM M.D. Performed By: #### F ER, CMP, CBC, FE and TIBC #### [address] #### TOMA SERUM, SPE, KAPPA #### [facility] , Automated blood monocyte cou ntOrdered By: Krzysztof Salazar on 09-20-2023 Monocytes (Bld) [#/Vol] 0.7 10*3/uL Normal 0.0-0.8 [facility] Comment on above: Performed By: #### F ER, CMP, CBC, FE and TIBC #### [address] #### TOMA SERUM, SPE, KAPPA #### [facility] , Automated eosinophil %Ordere d By: Krzysztof Salazar on 09-20-2023 Eosinophils/100 WBC (Bld) 2.6 % Normal . [facility] Comment on above: Performed By: #### F ER, CMP, CBC, FE and TIBC #### [place] [address] [place] #### TOMA SERUM, SPE, KAPPA #### [facility] , Automated eosinophil countOr dered By: Krzysztof Salazar on 09-20-2023 Eosinophils (Bld) [#/Vol] 0.2 10*3/uL Normal 0.0-0.45 [facility] Comment on above: Performed By: #### F ER, CMP, CBC, FE and TIBC #### [address] #### TOMA SERUM, SPE, KAPPA #### [facility] , Automated monocyte %Ordered By: Krzysztof Salazar on 09-20-2023 Monocytes/100 WBC (Bld) 7.9 % Normal . [facility] Comment on above: Performed By: #### F ER, CMP, CBC, FE and TIBC #### [address] #### TOMA SERUM, SPE, KAPPA #### [facility] , Automated neutrophil %Ordere d By: Krzysztof Salazar on 09-20-2023 Neutrophils/100 WBC (Bld) 64.3 % Normal . [facility] Comment on above: Performed By: #### F ER, CMP, CBC, FE and TIBC #### [address] #### TOMA SERUM, SPE, KAPPA #### [facility] , Bilirubin.total [Mass/volume ] in Serum or PlasmaOrdered By: Krzysztof Salazar on 09-20-2023 Bilirubin [Mass/Vol] 0.6 mg/dL Normal 0.3-1.0 [facility] Comment on above: Performed By: #### F ER, CMP, CBC, FE and TIBC #### [address] #### TOMA SERUM, SPE, KAPPA #### [facility] , Calcium [Mass/volume] in Ser um or PlasmaOrdered By: Krzysztof Salazar on 09-20-2023 Calcium [Mass/Vol] 9.7 mg/dL Normal 8.6-10.3 [facility] Comment on above: Performed By: #### F ER, CMP, CBC, FE and TIBC #### [facility] [address] [place] [address] [place] #### TOMA SERUM, SPE, KAPPA #### [facility] , Carbon dioxide, total [Moles /volume] in Serum or PlasmaOrdered By: Krzysztof Salazar on 09-20-2023 CO2 [Moles/Vol] 32.4 mmol/L High 21.0-31.0 [facility] Comment on above: Performed By: #### F ER, CMP, CBC, FE and TIBC #### [address] #### TOMA SERUM, SPE, KAPPA #### [facility] , Chloride [Moles/volume] in S hugo or PlasmaOrdered By: Krzysztof Salazar on 09-20-2023 Chloride [Moles/Vol] 97 mmol/L Low 98-107 [facility] Comment on above: Performed By: #### F ER, CMP, CBC, FE and TIBC #### [place] [address] [place] #### TOMA SERUM, SPE, KAPPA #### [facility] , Complete Blood Count Auto Di ffon 09-20-2023 Mean Corpuscular HGB Conc 32.7 g/dL Normal 32.0-35.0 [facility] Comment on above: Performed By: #### F ER, CMP, CBC, FE and TIBC #### [facility] [address] [place] [address] [place] #### TOMA SERUM, SPE, KAPPA #### [facility] , NRBC% 0.1 /100{WBC} Normal 0-0.5 [facility] Comment on above: Performed By: #### F ER, CMP, CBC, FE and TIBC #### [place] [address] [place] #### TOMA SERUM, SPE, KAPPA #### [facility] , Comprehensive Metabolic Pane gretel 09-20-2023 Albumin [Mass/Vol] 4.2 g/dL Normal 3.5-5.7 [facility] Comment on above: Performed By: #### F ER, CMP, CBC, FE and TIBC #### [address] #### TOMA SERUM, SPE, KAPPA #### [facility] , Creatinine Clr Calc Pharmacy 143.32 Normal [facility] Comment on above: Performed By: #### F ER, CMP, CBC, FE and TIBC #### [address] #### TOMA SERUM, SPE, KAPPA #### [facility] , GFR/1.73 sq M.predicted MDRD (S/P/Bld) [Vol rate/Area] mL/min/{1.73_m2} Normal [facility] Comment on above: Performed By: #### F ER, CMP, CBC, FE and TIBC #### [address] #### TMOA SERUM, SPE, KAPPA #### [facility] , Creatinine [Mass/volume] in Serum or PlasmaOrdered By: Krzysztof Salazar on 09-20-2023 Creatinine [Mass/Vol] 0.60 mg/dL Normal 0.60-1.20 [facility] Comment on above: Performed By: #### F ER, CMP, CBC, FE and TIBC #### [address] #### TOMA SERUM, SPE, KAPPA #### [facility] , Erythrocyte distribution wid th [Ratio] by Automated countOrdered By: Krzysztof Salazar on 09-20-2023 Erythrocyte distribution width (RBC) [Ratio] 16.7 % High 11.9-15.3 [facility] Comment on above: Performed By: #### F ER, CMP, CBC, FE and TIBC #### [address] #### TOMA SERUM, SPE, KAPPA #### [facility] , Erythrocytes [#/volume] in B lood by Automated countOrdered By: Krzysztof Salazar on 09-20-2023 RBC (Bld) [#/Vol] 4.86 10*6/uL Normal 3.60-5.00 [facility] Comment on above: Performed By: #### F ER, CMP, CBC, FE and TIBC #### [address] #### TOMA SERUM, SPE, KAPPA #### [facility] , Ferritin [Mass/volume] in Se rum or PlasmaOrdered By: Krzysztof Salazar on 09-20-2023 Ferritin [Mass/Vol] 92.7 ng/mL Normal 11.0-306.8 [facility] Comment on above: Result Comment: PERF ORMED BY: [place] [address] PATHOLOGIST LIQUID FERTILIZER SERVICER MELODY ELAM M.D. Performed By: #### F ER, CMP, CBC, FE and TIBC #### [address] #### TOMA SERUM, SPE, KAPPA #### [facility] , Free K+L LT Chains, Qn, Son 09-20-2023 Free Donna Light Chains, S 30.9 mg/L High 3.3-19.4 [facility] Comment on above: Performed By: #### F ER, CMP, CBC, FE and TIBC #### [facility] [address] [place] [address] [place] #### TOMA SERUM, SPE, KAPPA #### [facility] , Free Lambda Light Chains, S 26.4 mg/L High 5.7-26.3 [facility] Comment on above: Performed By: #### F ER, CMP, CBC, FE and TIBC #### [place] [address] [place] #### TOMA SERUM, SPE, KAPPA #### [facility] , Donna/Lambda Ratio, S 1.17 Normal 0.26-1.65 [facility] Comment on above: Result Comment: Perf ormed at: - [facility] [address] [id number] Laundry Assistant: Jeyson Duncan PhD, Phone: [phone] PERFORMED BY: [place] [address] PATHOLOGIST LIQUID FERTILIZER SERVICER MELODY ELAM M.D. Performed By: #### F ER, CMP, CBC, FE and TIBC #### [address] #### TOMA SERUM, SPE, KAPPA #### [facility] , Glucose [Mass/volume] in Ser um or PlasmaOrdered By: Krzysztof Salazar on 09-20-2023 Glucose [Mass/Vol] 123 mg/dL High 70-100 [facility] Comment on above: ADA recommended refe rence rangeRandom Glucose Reference Range is dependent on time and content of last meal. Glucose of more than 200 mg/dL in a nonstressed, ambulatory subject supports the diagnosis of Diabetes Mellitus. Result Comment: [place] om Glucose Reference Range is dependent on time and content of last meal. Glucose of more than 200 mg/dL in a nonstressed, ambulatory subject supports the diagnosis of Diabetes Mellitus. ADA recommended reference range Performed By: #### F ER, CMP, CBC, FE and TIBC #### [place] [address] [place] #### TOMA SERUM, SPE, KAPPA #### [facility] , Hematocrit [Volume Fraction] of Blood by Automated countOrdered By: Krzysztof Salazar on 09-20-2023 Hematocrit (Bld) [Volume fraction] 38.3 % Normal 34.0-46.4 [facility] Comment on above: Performed By: #### F ER, CMP, CBC, FE and TIBC #### [place] [id number] [place] #### TOMA SERUM, SPE, KAPPA #### [facility] , Hemoglobin [Mass/volume] in BloodOrdered By: Krzysztof Salazar on 09-20-2023 Hemoglobin (Bld) [Mass/Vol] 12.5 g/dL Normal 11.8-15.4 [facility] Comment on above: Performed By: #### F ER, CMP, CBC, FE and TIBC #### [facility] [address] [place] [address] [place] #### TOMA SERUM, SPE, KAPPA #### [facility] , IgA [Mass/volume] in Serum o r PlasmaOrdered By: Krzysztof Salazar on 09-20-2023 IgA [Mass/Vol] 409 mg/dL 87-352 [facility] IgG [Mass/volume] in Serum o r PlasmaOrdered By: Krzysztof Salazar on 09-20-2023 IgG [Mass/Vol] 1704 mg/dL [phone] [facility] IgM [Mass/volume] in Serum o r PlasmaOrdered By: Krzysztof Salzaar on 09-20-2023 IgM [Mass/Vol] 122 mg/dL 26-217 [facility] Comment on above: Performed at: [place] [id number] Director: Jeyson Duncan PhD, Phone: [phone] Immunofixation,Serumon 09-19 Immunofixation, Serum Normal . [facility] Comment on above: Result Comment: No m onoclonality detected. Performed By: #### F ER, CMP, CBC, FE and TIBC #### [facility] [address] [place] [address] [place] #### TOMA SERUM, SPE, KAPPA #### [facility] , Immunoglobulin A, Serum 409 mg/dL High 87-352 [facility] Comment on above: Performed By: #### F ER, CMP, CBC, FE and TIBC #### [facility] [address] [place] [address] [place] #### TOMA SERUM, SPE, KAPPA #### [facility] , Immunoglobulin G 1704 mg/dL High [phone] [facility] Comment on above: Performed By: #### F ER, CMP, CBC, FE and TIBC #### [facility] [address] [place] [address] #### TOMA SERUM, SPE, KAPPA #### [facility] , Immunoglobulin M, Serum 122 mg/dL Normal 26-217 [facility] Comment on above: Result Comment: Perf ormed at: [place] [facility] [address] [place], [place] [id number] Laundry Assistant: Jeyson Duncan PhD, Phone: [phone] Performed By: #### F ER, CMP, CBC, FE and TIBC #### [address] #### TOMA SERUM, SPE, KAPPA #### [facility] , Immunoglobulin light chains. kappa.free [Mass/volume] in SerumOrdered By: Krzysztof Salazar on 09-20-2023 Immunoglobulin light chains.kappa.free (S) [Mass/Vol] 30.9 mg/L 3.3-19.4 [facility] Immunoglobulin light chains. kappa.free/Immunoglobulin light chains.lambda.free [MassOrdered By: Krzysztof Salazar on 09-20-2023 Immunoglobulin light chains.kappa.free/Immuno globulin light chains.lambda.free (S) [Mass ratio] 1.17 0.26-1.65 [facility] Comment on above: Performed at: [place] [facility] [id number] [place], [place] [id number] Director: Jeyson Duncan PhD, Phone: [phone] Immunoglobulin light chains. lambda.free [Mass/volume] in Serum or PlasmaOrdered By: Krzysztof Salazar on 09-20-2023 Immunoglobulin light chains.lambda.free [Mass/Vol] 26.4 mg/L 5.7-26.3 [facility] Iron [Mass/volume] in Serum or PlasmaOrdered By: Krzysztof Salazar on 09-20-2023 Iron [Mass/Vol] 74 ug/dL Normal 50-212 [facility] Comment on above: Performed By: #### F ER, CMP, CBC, FE and TIBC #### [facility] [address] [place] [address] #### TOMA SERUM, SPE, KAPPA #### [facility] , Iron and TIBC Profileon 08-24 % Iron Saturation 21.5 % Normal 20-50 [facility] Comment on above: Performed By: #### F ER, CMP, CBC, FE and TIBC #### [facility] [address] [place] [address] [place] #### TOMA SERUM, SPE, KAPPA #### [facility] , Total Iron Binding Capacity 344 ug/dL Normal 255-450 [facility] Comment on above: Performed By: #### F ER, CMP, CBC, FE and TIBC #### [facility] [address] [place] [address] [place] #### TOMA SERUM, SPE, KAPPA #### [facility] , Iron binding capacity [Mass/ volume] in Serum or PlasmaOrdered By: Krzysztof Salazar on 09-20-2023 Iron binding capacity [Mass/Vol] 344 ug/dL 255-450 [facility] Iron saturation [Mass Fracti on] in Serum or PlasmaOrdered By: Krzysztof Salazar on 09-20-2023 Iron saturation [Mass fraction] 21.5 % 20-50 [facility] Leukocytes [#/volume] correc silverio for nucleated erythrocytes in Blood by Automated counOrdered By: Krzysztof Salazar on 09-20-2023 WBC corrected for nucl RBC Auto (Bld) [#/Vol] 8.5 10*3/uL 3.8-11.6 [facility] Leukocytes [#/volume] in Blo od by Automated countOrdered By: Krzysztof Salazar on 09-20-2023 WBC (Bld) [#/Vol] 8.5 10*3/uL Normal 3.8-11.6 [facility] Comment on above: Performed By: #### F ER, CMP, CBC, FE and TIBC #### [facility] [address] [place] [address] [place] #### TOMA SERUM, SPE, KAPPA #### [facility] , Lymphocytes [#/volume] in Bl ood by Automated countOrdered By: Krzysztof Salazar on 09-20-2023 Lymphocytes (Bld) [#/Vol] 2.1 10*3/uL Normal 1.00-4.8 [facility] Comment on above: Performed By: #### F ER, CMP, CBC, FE and TIBC #### [address] #### TOMA SERUM, SPE, KAPPA #### [facility] , Lymphocytes/100 leukocytes i n Blood by Automated countOrdered By: Krzysztof Salazar on 09-20-2023 Lymphocytes/100 WBC (Bld) 24.7 % Normal . [facility] Comment on above: Performed By: #### F ER, CMP, CBC, FE and TIBC #### [place] [address] [place] #### TOMA SERUM, SPE, KAPPA #### [facility] , MCH [Entitic mass] by Automa silverio countOrdered By: Krzysztof Salazar on 09-20-2023 MCH (RBC) [Entitic mass] 25.8 pg Normal 24.7-34.3 [facility] Comment on above: Performed By: #### F ER, CMP, CBC, FE and TIBC #### [place] [address] [place] #### TOMA SERUM, SPE, KAPPA #### [facility] , MCHC Auto (RBC) [Mass/Vol]Or dered By: Krzysztof Salazar on 09-20-2023 MCHC (RBC) [Mass/Vol] 32.7 g/dL 32.0-35.0 [facility] MCV [Entitic volume] by Auto mated countOrdered By: Krzysztof Salazar on 09-20-2023 MCV (RBC) [Entitic vol] 78.7 fL Low 80-100 [facility] Comment on above: Performed By: #### F ER, CMP, CBC, FE and TIBC #### [address] #### TOMA SERUM, SPE, KAPPA #### [facility] , Neutrophils [#/volume] in Bl ood by Automated countOrdered By: Krzysztof Salazar on 09-20-2023 Neutrophils (Bld) [#/Vol] 5.5 10*3/uL Normal 1.8-7.7 [facility] Comment on above: Performed By: #### F ER, CMP, CBC, FE and TIBC #### [address] #### TOMA SERUM, SPE, KAPPA #### [facility] , No Panel InformationOrdered By: Krzysztof Salazar on 09-20-2023 Estimated GFR (CKD-EPI) > 60.0 mL/Min [facility] Creatinine Clearance (Chem 143.32 [facility] Protein Electrophoresis M-Antwan Not observed g/dL Not Observed [facility] Protein Electrophoresis Note See comment . [facility] Comment on above: Protein electrophore sis scan will follow via computer,mail, or wringer machine operator delivery. Serum Immunofixation See comment . [facility] Comment on above: No monoclonality det ected. Nucleated erythrocytes [Pres ence] in Blood by Automated countOrdered By: Krzysztof Salazar on 09-20-2023 Nucleated RBC Auto Ql (Bld) 0.1 /100{WBC} 0-0.5 [facility] Platelet mean volume [Entiti c volume] in Blood by Automated countOrdered By: Krzysztof Salazar on 09-20-2023 Platelet mean volume (Bld) [Entitic vol] 8.8 fL Normal 6.3-10.7 [facility] Comment on above: Performed By: #### F ER, CMP, CBC, FE and TIBC #### [place] [address] [place] #### TOMA SERUM, SPE, KAPPA #### [facility] , Platelets [#/volume] in Bloo d by Automated countOrdered By: Krzysztof Salazar on 09-20-2023 Platelets (Bld) [#/Vol] 271 10*3/uL Normal 150-450 [facility] Comment on above: Performed By: #### F ER, CMP, CBC, FE and TIBC #### [address] #### TOMA SERUM, SPE, KAPPA #### [facility] , Potassium [Moles/volume] in Serum or PlasmaOrdered By: Krzysztof Salazar on 09-20-2023 Potassium [Moles/Vol] 4.4 mmol/L Normal 3.5-5.1 [facility] Comment on above: Performed By: #### F ER, CMP, CBC, FE and TIBC #### [place] [address] [place] #### TOMA SERUM, SPE, KAPPA #### [facility] , Protein Electrophoresis, Ser umon 09-20-2023 Peefi-3-Ajrnbogk 0.3 g/dL Normal 0.0-0.4 [facility] Comment on above: Performed By: #### F ER, CMP, CBC, FE and TIBC #### [facility] [address] [place] [address] [place] #### TOMA SERUM, SPE, KAPPA #### [facility] , Zmgzz-5-Uaeulhab 0.8 g/dL Normal 0.4-1.0 [facility] Comment on above: Performed By: #### F ER, CMP, CBC, FE and TIBC #### [place] [address] [place] #### TOMA SERUM, SPE, KAPPA #### [facility] , Beta Globulin 1.2 g/dL Normal 0.7-1.3 [facility] Comment on above: Performed By: #### F ER, CMP, CBC, FE and TIBC #### [address] #### TOMA SERUM, SPE, KAPPA #### [facility] , Gamma Globulin 1.8 g/dL Normal 0.4-1.8 [facility] Comment on above: Performed By: #### F ER, CMP, CBC, FE and TIBC #### [address] #### TOMA SERUM, SPE, KAPPA #### [facility] , M-Antwan Not Observed Normal Not Observed [facility] Comment on above: Performed By: #### F ER, CMP, CBC, FE and TIBC #### [address] #### TOMA SERUM, SPE, KAPPA #### [facility] , SPE-Note Normal . [facility] Comment on above: Result Comment: Prot ein electrophoresis scan will follow via computer, mail, or wringer machine operator delivery. Performed By: #### F ER, CMP, CBC, FE and TIBC #### [address] #### TOMA SERUM, SPE, KAPPA #### [facility] , Protein [Mass/volume] in Ser um or PlasmaOrdered By: Krzysztof Salazar on 09-20-2023 Protein [Mass/Vol] 7.7 g/dL Normal 6.4-8.9 [facility] Comment on above: Performed By: #### F ER, CMP, CBC, FE and TIBC #### [place] [address] [place] #### TOMA SERUM, SPE, KAPPA #### [facility] , Protein [Mass/Vol] 7.8 g/dL Normal 6.0-8.5 [facility] Comment on above: Performed By: #### F ER, CMP, CBC, FE and TIBC #### [place] [address] [place] #### TOMA SERUM, SPE, KAPPA #### [facility] , Serum globulin measurement ( mass/volume)Ordered By: Krzysztof Salazar on 09-20-2023 Globulin (S) [Mass/Vol] 4.0 g/dL High 2.2-3.9 [facility] Comment on above: Performed By: #### F ER, CMP, CBC, FE and TIBC #### [place] [address] [place] #### TOMA SERUM, SPE, KAPPA #### [facility] , Serum globulin measurement b y calculation (mass/volume)Ordered By: Krzysztof Salazar on 09-20-2023 Globulin (S) [Mass/Vol] 3.5 g/dL Normal [facility] Comment on above: Performed By: #### F ER, CMP, CBC, FE and TIBC #### [place] [address] [place] #### TOMA SERUM, SPE, KAPPA #### [facility] , Serum or plasma albumin/glob ulin mass ratioOrdered By: Krzysztof Salazar on 09-20-2023 Albumin/Globulin [Mass ratio] 1.2 {ratio} Normal [facility] Comment on above: Performed By: #### F ER, CMP, CBC, FE and TIBC #### [facility] [address] [place] [address] [place] #### TOMA SERUM, SPE, KAPPA #### [facility] , Albumin/Globulin [Mass ratio] 1.0 {ratio} Normal 0.7-1.7 [facility] Comment on above: Performed By: #### F ER, CMP, CBC, FE and TIBC #### [facility] [address] [place] [address] [place] #### TOMA SERUM, SPE, KAPPA #### [facility] , Serum or plasma alpha 1 glob ulin measurement by electrophoresis (mass/volume)Ordered By: Krzysztof Salazar on 09-20-2023 Alpha 1 globulin Elph [Mass/Vol] 0.3 g/dL 0.0-0.4 [facility] Serum or plasma alpha 2 glob ulin measurement by electrophoresis (mass/volume)Ordered By: Krzysztof Salazar on 09-20-2023 Alpha 2 globulin Elph [Mass/Vol] 0.8 g/dL 0.4-1.0 [facility] Serum or plasma anion gap de terminationOrdered By: Krzysztof Salazar on 09-20-2023 Anion gap [Moles/Vol] 11.0 mmol/L Normal 6.0-15.0 [facility] Comment on above: Performed By: #### F ER, CMP, CBC, FE and TIBC #### [facility] [address] [place] [address] #### TOMA SERUM, SPE, KAPPA #### [facility] , Serum or plasma beta globuli n measurement by electrophoresis (mass/volume)Ordered By: Krzysztof Salazar on 09-20-2023 Beta globulin Elph [Mass/Vol] 1.2 g/dL 0.7-1.3 [facility] Serum or plasma gamma globul in measurement by electrophoresis (mass/volume)Ordered By: Krzysztof Salazar on 09-20-2023 Gamma globulin Elph [Mass/Vol] 1.8 g/dL 0.4-1.8 [facility] Sodium [Moles/volume] in Ser um or PlasmaOrdered By: Krzysztof Salazar on 09-20-2023 Sodium [Moles/Vol] 136 mmol/L Normal 136-145 [facility] Comment on above: Performed By: #### F ER, CMP, CBC, FE and TIBC #### [facility] [address] [place] [address] [place] #### TOMA SERUM, SPE, KAPPA #### [facility] , Transferrin [Mass/volume] in Serum or PlasmaOrdered By: Krzysztof Salazar on 09-20-2023 Transferrin [Mass/Vol] 246 mg/dL Normal 203-362 [facility] Comment on above: Performed By: #### F ER, CMP, CBC, FE and TIBC #### [address] #### TOMA SERUM, SPE, KAPPA #### [facility] , Urea nitrogen [Mass/volume] in Serum or PlasmaOrdered By: Krzysztof Salazar on 09-20-2023 Urea nitrogen [Mass/Vol] 16 mg/dL Normal 7-25 [facility] Comment on above: Performed By: #### F ER, CMP, CBC, FE and TIBC #### [address] #### TOMA SERUM, SPE, KAPPA #### [facility] , US pelvic completeon 024 US pelvic complete [facility] [address] [place] [address] Ultrasound Report Signed Patient: Geeta Shelton MR#: [id number] : 1970 Acct:[id number] Age/Sex: 53 / F ADM Date: 09/07/23 Loc: [facility]: [facility] Att[facility] Dr: STEPHEN Ruiz APRNC Ordering Provider: Elizabeth Alvarado APRN, CNP Date of Service: 09/07/23 US/US transvaginal: Abnormal vaginal bleeding ([id number]) US/US pelvic complete: Abnormal vaginal bleeding Copies [...] Davis Jr., Fede09/07/2023 2:39 PM Dictation Location: [place] [address] Tech: Jessica Saenz Transcribed By: SEJAL 09/07/23 1439 Dictated By: Jesus Davis Jr, DO 09/07/23 1437 Signed By: 09/07/23 1439 Normal [facility] Alanine aminotransferase [En zymatic activity/volume] in Serum or PlasmaOrdered By: Elizabeth Alvarado on 08-24-2023 ALT [Catalytic activity/Vol] 28 U/L Normal 7-52 [facility] Comment on above: Order Comment: Reaso n for Exam Type 2 diabetes mellitus without complication, without long- Performed By: #### F ER, CMP, CBC, FE and TIBC #### [facility] [address] [place] [address] [place] #### TOMA SERUM, SPE, KAPPA #### [facility] , Albumin [Mass/volume] in Ser um or Plasma by Bromocresol green (BCG) dye binding methoOrdered By: Elizabeth Alvarado on 08-24-2023 Albumin BCG dye [Mass/Vol] 4.3 g/dL 3.5-5.7 [facility] Alkaline phosphatase [Enzyma tic activity/volume] in Serum or PlasmaOrdered By: Elizabeth Alvarado on 08-24-2023 ALP [Catalytic activity/Vol] 86 U/L Normal 34-104 [facility] Comment on above: Order Comment: Reaso n for Exam Type 2 diabetes mellitus without complication, without long- Performed By: #### F ER, CMP, CBC, FE and TIBC #### [facility] [address] [place] [address] [place] #### TOMA SERUM, SPE, KAPPA #### [facility] , Aspartate aminotransferase [ Enzymatic activity/volume] in Serum or PlasmaOrdered By: Elizabeth Alvarado on 08-24-2023 AST [Catalytic activity/Vol] 28 U/L Normal 13-39 [facility] Comment on above: Order Comment: Reaso n for Exam Type 2 diabetes mellitus without complication, without long- Performed By: #### F ER, CMP, CBC, FE and TIBC #### [facility] [address] #### TOMA SERUM, SPE, KAPPA #### [facility] , Automated basophil %Ordered By: Elizabeth Alvarado on 08-24-2023 Basophils/100 WBC (Bld) 0.7 % Normal . [facility] Comment on above: Order Comment: Reaso n for Exam Type 2 diabetes mellitus without complication, without long- Performed By: #### T SH3 wRFLX, LIPID, CBC, CMP #### [facility] [address] Automated basophil countOrde red By: Elizabeth Alvarado on 08-24-2023 Basophils (Bld) [#/Vol] 0.1 10*3/uL Normal 0.0-0.2 [facility] Comment on above: Order Comment: Reaso n for Exam Type 2 diabetes mellitus without complication, without long- Result Comment: PERF ORMED BY: [place] [address] PATHOLOGIST LIQUID FERTILIZER SERVICER MELODY ELAM M.D. Performed By: #### T SH3 wRFLX, LIPID, CBC, CMP #### [facility] [address] [place] [address] Automated blood monocyte cou ntOrdered By: Elizabeth Alvarado on 08-24-2023 Monocytes (Bld) [#/Vol] 0.8 10*3/uL Normal 0.0-0.8 [facility] Comment on above: Order Comment: Reaso n for Exam Type 2 diabetes mellitus without complication, without long- Performed By: #### T SH3 wRFLX, LIPID, CBC, CMP #### [facility] [address] Automated eosinophil %Ordere d By: Elizabeth Alvarado on 08-24-2023 Eosinophils/100 WBC (Bld) 3.3 % Normal . [facility] Comment on above: Order Comment: Reaso n for Exam Type 2 diabetes mellitus without complication, without long- Performed By: #### T SH3 wRFLX, LIPID, CBC, CMP #### [facility] [address] Automated eosinophil countOr dered By: Elizabeth Alvarado on 08-24-2023 Eosinophils (Bld) [#/Vol] 0.3 10*3/uL Normal 0.0-0.45 [facility] Comment on above: Order Comment: Reaso n for Exam Type 2 diabetes mellitus without complication, without long- Performed By: #### T SH3 wRFLX, LIPID, CBC, CMP #### [facility] [address] Automated monocyte %Ordered By: Elizabeth Alvarado on 08-24-2023 Monocytes/100 WBC (Bld) 8.1 % Normal . [facility] Comment on above: Order Comment: Reaso n for Exam Type 2 diabetes mellitus without complication, without long- Performed By: #### T SH3 wRFLX, LIPID, CBC, CMP #### [facility] [address] Automated neutrophil %Ordere d By: Elizabeth Alvarado on 08-24-2023 Neutrophils/100 WBC (Bld) 62.4 % Normal . [facility] Comment on above: Order Comment: Reaso n for Exam Type 2 diabetes mellitus without complication, without long- Performed By: #### T SH3 wRFLX, LIPID, CBC, CMP #### [facility] [address] [place] [address] Bilirubin.total [Mass/volume ] in Serum or PlasmaOrdered By: Elizabeth Alvarado on 08-24-2023 Bilirubin [Mass/Vol] 0.4 mg/dL Normal 0.3-1.0 [facility] Comment on above: Order Comment: Reaso n for Exam Type 2 diabetes mellitus without complication, without long- Performed By: #### F ER, CMP, CBC, FE and TIBC #### [facility] [address] [place] [address] [place] #### TOMA SERUM, SPE, KAPPA #### [facility] , Calcium [Mass/volume] in Ser um or PlasmaOrdered By: Elizabeth Alvarado on 08-24-2023 Calcium [Mass/Vol] 9.4 mg/dL Normal 8.6-10.3 [facility] Comment on above: Order Comment: Reaso n for Exam Type 2 diabetes mellitus without complication, without long- Performed By: #### F ER, CMP, CBC, FE and TIBC #### [address] #### TOMA SERUM, SPE, KAPPA #### [facility] , Carbon dioxide, total [Moles /volume] in Serum or PlasmaOrdered By: Elizabeth Alvarado on 08-24-2023 CO2 [Moles/Vol] 29.2 mmol/L Normal 21.0-31.0 [facility] Comment on above: Order Comment: Reaso n for Exam Type 2 diabetes mellitus without complication, without long- Performed By: #### F ER, CMP, CBC, FE and TIBC #### [facility] [address] [place] [address] [place] #### TOMA SERUM, SPE, KAPPA #### [facility] , Chloride [Moles/volume] in S hugo or PlasmaOrdered By: Elizabeth Alvarado on 08-24-2023 Chloride [Moles/Vol] 96 mmol/L Low 98-107 [facility] Comment on above: Order Comment: Reaso n for Exam Type 2 diabetes mellitus without complication, without long- Performed By: #### F ER, CMP, CBC, FE and TIBC #### [facility] [address] [place] [address] [place] #### TOMA SERUM, SPE, KAPPA #### [facility] , Cholesterol [Mass/volume] in Serum or PlasmaOrdered By: Elizabeth Alvarado on 08-24-2023 Cholesterol [Mass/Vol] 160 mg/dL Normal 140-200 [facility] Comment on above: Chol less [...] ER, CMP, CBC, FE and TIBC #### [facility] [address] #### TOMA SERUM, SPE, KAPPA #### [facility] , Cholesterol in LDL Calc [Mas s/Vol]Ordered By: Elizabeth Alvarado on 08-24-2023 Cholesterol in LDL [Mass/Vol] 78 mg/dL 0-100 [facility] Comment on above: LDL ATP III CLASSIFI CATIONLDL less than 100 mg/dL OptimalLDL 100-129 mg/dL Near or above optimalLDL 130-159 mg/dL Borderline highLDL 160-189 mg/dL HighLDL greater than 189 mg/dL Very high Cholesterol in VLDL Calc [Ma ss/Vol]Ordered By: Elizabeth Alvarado on 08-24-2023 Cholesterol in VLDL [Mass/Vol] 22 mg/dL [facility] Complete Blood Count Auto Di ffon 08-24-2023 Mean Corpuscular HGB Conc 32.5 g/dL Normal 32.0-35.0 [facility] Comment on above: Order Comment: Reaso n for Exam Type 2 diabetes mellitus without complication, without long- Performed By: #### T SH3 wRFLX, LIPID, CBC, CMP #### [facility] [address] NRBC% 0.2 /100{WBC} Normal 0-0.5 [facility] Comment on above: Order Comment: Reaso n for Exam Type 2 diabetes mellitus without complication, without long- Performed By: #### T SH3 wRFLX, LIPID, CBC, CMP #### [address] Comprehensive Metabolic Pane gretel 08-24-2023 Albumin [Mass/Vol] 4.3 g/dL Normal 3.5-5.7 [facility] Comment on above: Order Comment: Reaso n for Exam Type 2 diabetes mellitus without complication, without long- Performed By: #### F ER, CMP, CBC, FE and TIBC #### [address] #### TOMA SERUM, SPE, KAPPA #### [facility] , GFR/1.73 sq M.predicted MDRD (S/P/Bld) [Vol rate/Area] mL/min/{1.73_m2} Normal [facility] Comment on above: Order Comment: Reaso n for Exam Type 2 diabetes mellitus without complication, without long- Performed By: #### F ER, CMP, CBC, FE and TIBC #### [address] #### TOMA SERUM, SPE, KAPPA #### [facility] , Creatinine [Mass/volume] in Serum or PlasmaOrdered By: Elizabeth Alvarado on 08-24-2023 Creatinine [Mass/Vol] 0.65 mg/dL Normal 0.60-1.20 [facility] Comment on above: Order Comment: Reaso n for Exam Type 2 diabetes mellitus without complication, without long- Performed By: #### F ER, CMP, CBC, FE and TIBC #### [place] [address] [place] #### TOMA SERUM, SPE, KAPPA #### [facility] , Creatinine [Mass/volume] in UrineOrdered By: Elizabeth Alvarado on 08-24-2023 Creatinine (U) [Mass/Vol] 76.0 mg/dL [facility] Comment on above: No reference range e stablished Erythrocyte distribution wid th [Ratio] by Automated countOrdered By: Elizabeth Alvarado on 08-24-2023 Erythrocyte distribution width (RBC) [Ratio] 15.8 % High 11.9-15.3 [facility] Comment on above: Order Comment: Reaso n for Exam Type 2 diabetes mellitus without complication, without long- Performed By: #### T SH3 wRFLX, LIPID, CBC, CMP #### [facility] [address] Erythrocytes [#/volume] in B lood by Automated countOrdered By: Elizabeth Alvarado on 08-24-2023 RBC (Bld) [#/Vol] 5.06 10*6/uL High 3.60-5.00 [facility] Comment on above: Order Comment: Reaso n for Exam Type 2 diabetes mellitus without complication, without long- Performed By: #### T SH3 wRFLX, LIPID, CBC, CMP #### [facility] [address] Glucose [Mass/volume] in Ser um or PlasmaOrdered By: Elizabeth Alvarado on 08-24-2023 Glucose [Mass/Vol] 92 mg/dL Normal 70-100 [facility] Comment on above: ADA recommended refe rence rangeRandom Glucose Reference Range is dependent on time and content of last meal. Glucose of more than 200 mg/dL in a nonstressed, ambulatory subject supports the diagnosis of Diabetes Mellitus. Order Comment: Reaso n for Exam Type 2 diabetes mellitus without complication, without long- Result Comment: [place] om Glucose Reference Range is dependent on time and content of last meal. Glucose of more than 200 mg/dL in a nonstressed, ambulatory subject supports the diagnosis of Diabetes Mellitus. ADA recommended reference range Performed By: #### F ER, CMP, CBC, FE and TIBC #### [facility] [address] [place] [address] [place] #### TOMA SERUM, SPE, KAPPA #### [facility] , Hematocrit [Volume Fraction] of Blood by Automated countOrdered By: Elizabeth Alvarado on 08-24-2023 Hematocrit (Bld) [Volume fraction] 40.6 % Normal 34.0-46.4 [facility] Comment on above: Order Comment: Reaso n for Exam Type 2 diabetes mellitus without complication, without long- Performed By: #### T SH3 wRFLX, LIPID, CBC, CMP #### [facility] [address] Hemoglobin [Mass/volume] in BloodOrdered By: Elizabeth Alvarado on 08-24-2023 Hemoglobin (Bld) [Mass/Vol] 13.2 g/dL Normal 11.8-15.4 [facility] Comment on above: Order Comment: Reaso n for Exam Type 2 diabetes mellitus without complication, without long- Performed By: #### T SH3 wRFLX, LIPID, CBC, CMP #### [facility] [address] Leukocytes [#/volume] correc silverio for nucleated erythrocytes in Blood by Automated counOrdered By: Elizabeth Alvarado on 08-24-2023 WBC corrected for nucl RBC Auto (Bld) [#/Vol] 10.2 10*3/uL 3.8-11.6 [facility] Leukocytes [#/volume] in Blo od by Automated countOrdered By: Elizabeth Alvarado on 08-24-2023 WBC (Bld) [#/Vol] 10.2 10*3/uL Normal 3.8-11.6 [facility] Comment on above: Order Comment: Reaso n for Exam Type 2 diabetes mellitus without complication, without long- Performed By: #### T SH3 wRFLX, LIPID, CBC, CMP #### [facility] [address] Lipid Panelon 08-24-2023 LDL Cholesterol,Calculated 78 mg/dL Normal 0-100 [facility] Comment on above: [...] ER, CMP, CBC, FE and TIBC #### [address] #### TOMA SERUM, SPE, KAPPA #### [facility] , Triglyceride w/Reflex 112 mg/dL Normal 0-149 [facility] Comment on above: [...] ER, CMP, CBC, FE and TIBC #### [address] #### TOMA SERUM, SPE, KAPPA #### [facility] , VLDL CHOLESTEROL 22 mg/dL Normal [facility] Comment on above: Order Comment: Reaso n for Exam Type 2 diabetes mellitus without complication, without long- Performed By: #### F ER, CMP, CBC, FE and TIBC #### [address] #### TOMA SERUM, SPE, KAPPA #### [facility] , Lymphocytes [#/volume] in Bl ood by Automated countOrdered By: Elizabeth Alvarado on 08-24-2023 Lymphocytes (Bld) [#/Vol] 2.6 10*3/uL Normal 1.00-4.8 [facility] Comment on above: Order Comment: Reaso n for Exam Type 2 diabetes mellitus without complication, without long- Performed By: #### T SH3 wRFLX, LIPID, CBC, CMP #### [address] Lymphocytes/100 leukocytes i n Blood by Automated countOrdered By: Elizabeth Alvarado on 08-24-2023 Lymphocytes/100 WBC (Bld) 25.5 % Normal . [facility] Comment on above: Order Comment: Reaso n for Exam Type 2 diabetes mellitus without complication, without long- Performed By: #### T SH3 wRFLX, LIPID, CBC, CMP #### [address] MCH [Entitic mass] by Automa silverio countOrdered By: Elizabeth Alvarado on 08-24-2023 MCH (RBC) [Entitic mass] 26.1 pg Normal 24.7-34.3 [facility] Comment on above: Order Comment: Reaso n for Exam Type 2 diabetes mellitus without complication, without long- Performed By: #### T SH3 wRFLX, LIPID, CBC, CMP #### [address] MCHC Auto (RBC) [Mass/Vol]Or dered By: Elizabeth Alvarado on 08-24-2023 MCHC (RBC) [Mass/Vol] 32.5 g/dL 32.0-35.0 [facility] MCV [Entitic volume] by Auto mated countOrdered By: Elizabeth Alvarado on 08-24-2023 MCV (RBC) [Entitic vol] 80.3 fL Normal 80-100 [facility] Comment on above: Order Comment: Reaso n for Exam Type 2 diabetes mellitus without complication, without long- Performed By: #### T SH3 wRFLX, LIPID, CBC, CMP #### [address] MicroAlb Creat Ratio,Uon Creatinine, Urine (Random) 76.0 mg/dL Normal [facility] Comment on above: Order Comment: Reaso n for Exam Type 2 diabetes mellitus without complication, without long- Result Comment: No r eference range established Performed By: #### F ER, CMP, CBC, FE and TIBC #### [address] #### TOMA SERUM, SPE, KAPPA #### [facility] , Microalbumin/Creatinine Ratio Not performed Normal 0.0-30.0 [facility] Comment on above: Order Comment: Reaso n for Exam Type 2 diabetes mellitus without complication, without long- Result Comment: PERF ORMED BY: [place] [address] PATHOLOGIST LIQUID FERTILIZER SERVICER MELODY ELAM M.D. Performed By: #### F ER, CMP, CBC, FE and TIBC #### [address] #### TOMA SERUM, SPE, KAPPA #### [facility] , Microalbumin [Mass/volume] i n UrineOrdered By: Elizabeth Alvarado on 08-24-2023 Albumin DL <= 20 mg/L (U) [Mass/Vol] mg/dL High 0.0-1.8 [facility] Comment on above: Order Comment: Reaso n for Exam Type 2 diabetes mellitus without complication, without long- Performed By: #### F ER, CMP, CBC, FE and TIBC #### [facility] [address] [place] [address] #### TOMA SERUM, SPE, KAPPA #### [facility] , Neutrophils [#/volume] in Bl ood by Automated countOrdered By: Elizabeth Alvarado on 08-24-2023 Neutrophils (Bld) [#/Vol] 6.4 10*3/uL Normal 1.8-7.7 [facility] Comment on above: Order Comment: Reaso n for Exam Type 2 diabetes mellitus without complication, without long- Performed By: #### T SH3 wRFLX, LIPID, CBC, CMP #### [facility] [address] [place] [address] No Panel InformationOrdered By: Elizabeth Alvarado on 08-24-2023 Estimated GFR (CKD-EPI) > 60.0 mL/Min [facility] Creatinine Clearance (Chem N/A [facility] Nucleated erythrocytes [Pres ence] in Blood by Automated countOrdered By: Elizabeth Alvarado on 08-24-2023 Nucleated RBC Auto Ql (Bld) 0.2 /100{WBC} 0-0.5 [facility] Platelet mean volume [Entiti c volume] in Blood by Automated countOrdered By: Elizabeth Alvarado on 08-24-2023 Platelet mean volume (Bld) [Entitic vol] 9.8 fL Normal 6.3-10.7 [facility] Comment on above: Order Comment: Reaso n for Exam Type 2 diabetes mellitus without complication, without long- Performed By: #### T SH3 wRFLX, LIPID, CBC, CMP #### [facility] [address] [place] [address] Platelets [#/volume] in Bloo d by Automated countOrdered By: Elizabeth Alvarado on 08-24-2023 Platelets (Bld) [#/Vol] 283 10*3/uL Normal 150-450 [facility] Comment on above: Order Comment: Reaso n for Exam Type 2 diabetes mellitus without complication, without long- Performed By: #### T SH3 wRFLX, LIPID, CBC, CMP #### [address] Potassium [Moles/volume] in Serum or PlasmaOrdered By: Elizabeth Alvarado on 08-24-2023 Potassium [Moles/Vol] 4.3 mmol/L Normal 3.5-5.1 [facility] Comment on above: Order Comment: Reaso n for Exam Type 2 diabetes mellitus without complication, without long- Performed By: #### F ER, CMP, CBC, FE and TIBC #### [address] #### TOMA SERUM, SPE, KAPPA #### [facility] , Protein [Mass/volume] in Ser um or PlasmaOrdered By: Elizabeth Alvarado on 08-24-2023 Protein [Mass/Vol] 7.7 g/dL Normal 6.4-8.9 [facility] Comment on above: Order Comment: Reaso n for Exam Type 2 diabetes mellitus without complication, without long- Performed By: #### F ER, CMP, CBC, FE and TIBC #### [place] [address] [place] #### TOMA SERUM, SPE, KAPPA #### [facility] , Serum globulin measurement b y calculation (mass/volume)Ordered By: Elizabeth Alvarado on 08-24-2023 Globulin (S) [Mass/Vol] 3.4 g/dL Normal [facility] Comment on above: Order Comment: Reaso n for Exam Type 2 diabetes mellitus without complication, without long- Performed By: #### F ER, CMP, CBC, FE and TIBC #### [facility] [address] [place] [address] #### TOMA SERUM, SPE, KAPPA #### [facility] , Serum or plasma albumin/glob ulin mass ratioOrdered By: Elizabeth Alvarado on 08-24-2023 Albumin/Globulin [Mass ratio] 1.3 {ratio} [facility] Comment on above: Order Comment: Reaso n for Exam Type 2 diabetes mellitus without complication, without long- Performed By: #### F ER, CMP, CBC, FE and TIBC #### [facility] [address] [place] [address] [place] #### TOMA SERUM, SPE, KAPPA #### [facility] , Serum or plasma anion gap de terminationOrdered By: Elizabeth Alvarado on 08-24-2023 Anion gap [Moles/Vol] 18.1 mmol/L High 6.0-15.0 [facility] Comment on above: Order Comment: Reaso n for Exam Type 2 diabetes mellitus without complication, without long- Performed By: #### F ER, CMP, CBC, FE and TIBC #### [facility] [address] [place] [address] [place] #### TOMA SERUM, SPE, KAPPA #### [facility] , Serum or plasma high density lipoprotein (HDL) cholesterol measurementOrdered By: Elizabeth Alvarado on 08-24-2023 Cholesterol in HDL [Mass/Vol] 60 mg/dL Normal 23-92 [facility] Comment on above: HDL CHOL ATP-III [...] ER, CMP, CBC, FE and TIBC #### [facility] [address] [place] [address] #### TOMA SERUM, SPE, KAPPA #### [facility] , Serum or plasma total choles terol/high density lipoprotein (HDL) cholesterol mass ratOrdered By: Elizabeth Alvarado on 08-24-2023 Cholesterol.total/Choles terol in HDL [Mass ratio] 2.7 {ratio} Normal <5.0 [facility] Comment on above: Order Comment: Reaso n for Exam Type 2 diabetes mellitus without complication, without long- Performed By: #### F ER, CMP, CBC, FE and TIBC #### [facility] [address] [place] [address] [place] #### OTMA SERUM, SPE, KAPPA #### [facility] , Sodium [Moles/volume] in Ser um or PlasmaOrdered By: Elizabeth Alvarado on 08-24-2023 Sodium [Moles/Vol] 139 mmol/L Normal 136-145 [facility] Comment on above: Order Comment: Reaso n for Exam Type 2 diabetes mellitus without complication, without long- Performed By: #### F ER, CMP, CBC, FE and TIBC #### [facility] [address] [place] [address] [place] #### TOMA SERUM, SPE, KAPPA #### [facility] , Thyroid Stim Hormone w/Rflxo n 08-24-2023 Thyroid Stim Hormone w/Rflx 2.40 u[iU]/mL Normal 0.45-5.33 [facility] Comment on above: Order Comment: Reaso n for Exam Type 2 diabetes mellitus without complication, without long- Result Comment: PERF ORMED BY: [place] [address] PATHOLOGIST LIQUID FERTILIZER SERVICER MELODY ELAM M.D. Performed By: #### F ER, CMP, CBC, FE and TIBC #### [facility] [address] [place] [address] [place] #### TOMA SERUM, SPE, KAPPA #### [facility] , Thyrotropin [Units/volume] i n Serum or PlasmaOrdered By: Elizabeth Alvarado on 08-24-2023 TSH Qn 2.40 m[IU]/L 0.45-5.33 [facility] Triglyceride [Mass/volume] i n Serum or PlasmaOrdered By: Elizabeth Alvarado on 08-24-2023 Triglyceride [Mass/Vol] 112 mg/dL 0-149 [facility] Comment on above: TRIG ATP III CLASSIF ICATIONTRIG less than 150 mg/dL NormalTRIG 150-199 mg/dL Borderline highTRIG 200-500 mg/dL High TRIG greater than 500 mg/dL Very highStandard traceable to the Center for Disease Conrtrol and Prevention (CDC) test method. Urea nitrogen [Mass/volume] in Serum or PlasmaOrdered By: Elizabeth Alvarado on 08-24-2023 Urea nitrogen [Mass/Vol] 17 mg/dL Normal 7-25 [facility] Comment on above: Order Comment: Reaso n for Exam Type 2 diabetes mellitus without complication, without long- Performed By: #### F ER, CMP, CBC, FE and TIBC #### [facility] [address] [place] [address] [place] #### TOMA SERUM, SPE, KAPPA #### [facility] , Urine microalbumin/creatinin e mass ratioOrdered By: Elizabeth Alvarado on 08-24-2023 Albumin/Creatinine DL <= 20 mg/L (U) [Mass ratio] TNP [facility] Comment on above: Test not performed MM screening mammo BI w/CADo n 05-10-2023 MM screening mammo BI w/CAD [facility] [address] [place] [address] Mammography Report Signed Patient: Geeta Shelton MR#: [id number] : 1970 Acct:[id number] Age/Sex: 53 / F ADM Date: 05/10/23 Loc: OR [facility]: [facility] Dr: MARII Ruiz APRN Copies [...] Mary Colon M.D.05/10/2023 10:10 AM Dictation Location: [facility] Transcribed By: [facility] 05/10/23 1010 Dictated By: Mary Colon MD 05/10/23 1007 Signed By: 05/10/23 1010 Normal [facility] Established Visit (Orthopaed [...] grammatical areas may persist related to the [employer] software Merrill Alejandro PA-C . Active Problems [...] grammatical areas may persist related to the [employer] Acosta Schafer MD Senior Attending Physician [facility] [place] . Active Problems Problems Acute pain of [...] 1 tablet daily Results/Data Xray Knee 3 [id number] 01:48PMAcosta Schafer Test NameResultFlagReference Xray Knee 3 View(Report) FINAL REPORT Interpreted by: ACOSTA SCHAFER BURTON, MD 09/22/22 14:13 Patient Name: GEETA SHELTON STUDY: KNEE; 3 VIEWS; Right; 09/22/2022 1:48 pm INDICATION: pain Z96.659: Status post total knee replacement. ACCESSION NUMBER(S): [id number] ORDERING CLINICIAN: ACOSTA SCHAFER FINDINGS: Right knee [...] Status post total knee replacement. ACCESSION NUMBER(S): [id number] ORDERING CLINICIAN: ACOSTA SCHAFER FINDINGS: Right knee three views. Status post revision total knee replacement components in good position no signs of fracture dislocation or other bony abnormalities Electronically signed by: ACOSTA SCHAFER MD Normal [facility] Radiologyon 09-22-2022 XR Knee 3 Views Normal [facility] Work Phone: Alanine aminotransferase [En zymatic activity/volume] in Serum or PlasmaOrdered By: Zoey Ramirez on 08-17-2022 ALT [Catalytic activity/Vol] 45 U/L 7-52 [facility] Albumin [Mass/volume] in Ser um or PlasmaOrdered By: Zoey Ramirez on 08-17-2022 Albumin [Mass/Vol] 3.7 g/dL 2.9-4.4 [facility] Albumin [Mass/volume] in Ser um or Plasma by Bromocresol green (BCG) dye binding methoOrdered By: Zoey Ramirez on 08-17-2022 Albumin BCG dye [Mass/Vol] 4.1 g/dL 3.5-5.7 [facility] Albumin/Protein.total in 24 hour Urine by ElectrophoresisOrdered By: Zoey Ramirez on 08-17-2022 Albumin Elph (24H U) [Mass fraction] 59.9 % . [facility] Alkaline phosphatase [Enzyma tic activity/volume] in Serum or PlasmaOrdered By: Zoey Ramirez on 08-17-2022 ALP [Catalytic activity/Vol] 90 U/L 34-104 [facility] Aspartate aminotransferase [ Enzymatic activity/volume] in Serum or PlasmaOrdered By: Zoey Ramirez on 08-17-2022 AST [Catalytic activity/Vol] 40 U/L 13-39 [facility] Basophils Auto (Bld) [#/Vol] Ordered By: Zoey Ramirez on 08-17-2022 Basophils (Bld) [#/Vol] 0.1 10*3/uL 0.0-0.2 [facility] Basophils/100 WBC Auto (Bld) Ordered By: Zoey Ramirez on 08-17-2022 Basophils/100 WBC (Bld) 0.9 % . [facility] Bilirubin.total [Mass/volume ] in Serum or PlasmaOrdered By: Zoey Ramirez 08-17-2022 Bilirubin [Mass/Vol] 0.4 mg/dL 0.3-1.0 [facility] Calcium [Mass/volume] in Ser um or PlasmaOrdered By: Zoey Ramirez on 08-17-2022 Calcium [Mass/Vol] 9.1 mg/dL 8.6-10.3 [facility] Carbon dioxide, total [Moles /volume] in Serum or PlasmaOrdered By: Zoey Ramirez on 08-17-2022 CO2 [Moles/Vol] 27.9 mmol/L 21.0-31.0 [facility] Chloride [Moles/volume] in S hugo or PlasmaOrdered By: Zoey Ramirez on 08-17-2022 Chloride [Moles/Vol] 100 mmol/L 98-107 [facility] Creatinine [Mass/volume] in Serum or PlasmaOrdered By: Zoey Ramirez on 08-17-2022 Creatinine [Mass/Vol] 0.71 mg/dL 0.60-1.20 [facility] Eosinophils Auto (Bld) [#/Vo l]Ordered By: Zoey Ramirez on 08-17-2022 Eosinophils (Bld) [#/Vol] 0.3 10*3/uL 0.0-0.45 [facility] Eosinophils/100 WBC Auto (Bl d)Ordered By: Zoey Ramirez on 08-17-2022 Eosinophils/100 WBC (Bld) 3.1 % . [facility] Erythrocyte distribution wid th Auto (RBC) [Ratio]Ordered By: Zoey Ramirez on 08-17-2022 Erythrocyte distribution width (RBC) [Ratio] 16.5 % 11.9-15.3 [facility] Ferritin [Mass/volume] in Se rum or PlasmaOrdered By: Zoey Ramirez on 08-17-2022 Ferritin [Mass/Vol] 85.3 ng/mL 11.0-306.8 [facility] Folate [Mass/volume] in Seru m or PlasmaOrdered By: Zoey Ramirez on 08-17-2022 Folate [Mass/Vol] 15.1 ng/mL >5.9 [facility] Comment on above: Folate reference ran ge: >5.9 ng/mlThe WHO technical consultation on folate and vitamin [id number] has determined that folate concentrations lessthan 4 ng/ml are considered deficient. Gamma globulin/Protein.total in 24 hour Urine by ElectrophoresisOrdered By: Zoey Ramirez on 08-17-2022 Gamma globulin Elph (24H U) [Mass fraction] 15.3 % . [facility] Globulin Calc (S) [Mass/Vol] Ordered By: Zoey Ramirez on 08-17-2022 Globulin (S) [Mass/Vol] 4.0 g/dL [facility] Glucose [Mass/volume] in Ser um or PlasmaOrdered By: Zoey Ramirez on 08-17-2022 Glucose [Mass/Vol] 142 mg/dL 70-100 [facility] Comment on above: ADA recommended refe rence rangeRandom Glucose Reference Range is dependent on time and content of last meal. Glucose of more than 200 mg/dL in a nonstressed, ambulatory subject supports the diagnosis of Diabetes Mellitus. Hematocrit Auto (Bld) [Volum e fraction]Ordered By: Zoey Ramirez on 08-17-2022 Hematocrit (Bld) [Volume fraction] 41.3 % 34.0-46.4 [facility] Hemoglobin [Mass/volume] in BloodOrdered By: Zoey Ramirez on 08-17-2022 Hemoglobin (Bld) [Mass/Vol] 13.2 g/dL 11.8-15.4 [facility] IgA [Mass/volume] in Serum o r PlasmaOrdered By: Zoey Ramirez on 08-17-2022 IgA [Mass/Vol] 498 mg/dL 87-352 [facility] IgG [Mass/volume] in Serum o r PlasmaOrdered By: Zoey Ramirez on 08-17-2022 IgG [Mass/Vol] 1834 mg/dL 586-1602 [facility] IgM [Mass/volume] in Serum o r PlasmaOrdered By: Zoey Ramirez on 08-17-2022 IgM [Mass/Vol] 124 mg/dL 26-217 [facility] Comment on above: Performed at: [facility] [address] [id number] Director: Jeyson Duncan PhD, Phone: [phone] Immunofixation for UrineOrde red By: Zoey Ramirez on 08-17-2022 Interpretation Immunofixation (U) [Interp] See comment . [facility] Comment on above: No monoclonality det ected.Performed at: [employer] [facility] [address] [id number] Director: Jeyson Duncan PhD, Phone: [phone] Immunoglobulin light chains. kappa.free [Mass/volume] in SerumOrdered By: Zoey Ramirez on 08-17-2022 Immunoglobulin light chains.kappa.free (S) [Mass/Vol] 47.1 mg/L 3.3-19.4 [facility] Immunoglobulin light chains. kappa.free/Immunoglobulin light chains.lambda.free [MassOrdered By: Zoey Ramirez on 08-17-2022 Immunoglobulin light chains.kappa.free/Immuno globulin light chains.lambda.free (S) [Mass ratio] 1.65 0.26-1.65 [facility] Comment on above: Performed at: [address] [id number] Director: Jeyson Duncan PhD, Phone: [phone] Immunoglobulin light chains. lambda.free [Mass/volume] in Serum or PlasmaOrdered By: Zoey Ramirez on 08-17-2022 Immunoglobulin light chains.lambda.free [Mass/Vol] 28.6 mg/L 5.7-26.3 [facility] Iron [Mass/volume] in Serum or PlasmaOrdered By: Zoey Ramirez on 08-17-2022 Iron [Mass/Vol] 41 ug/dL 50-212 [facility] Iron binding capacity [Mass/ volume] in Serum or PlasmaOrdered By: Zoey Ramirez on 08-17-2022 Iron binding capacity [Mass/Vol] 344 ug/dL 255-450 [facility] Iron saturation [Mass Fracti on] in Serum or PlasmaOrdered By: Zoey Ramirez on 08-17-2022 Iron saturation [Mass fraction] 11.9 % 20-50 [facility] Leukocytes [#/volume] correc silverio for nucleated erythrocytes in Blood by Automated counOrdered By: Zoey Ramirez on 08-17-2022 WBC corrected for nucl RBC Auto (Bld) [#/Vol] 9.9 10*3/uL 3.8-11.6 [facility] Lymphocytes Auto (Bld) [#/Vo l]Ordered By: Zoey Ramirez on 08-17-2022 Lymphocytes (Bld) [#/Vol] 2.8 10*3/uL 1.00-4.8 [facility] Lymphocytes/100 WBC Auto (Bl d)Ordered By: Zoey Ramirez on 08-17-2022 Lymphocytes/100 WBC (Bld) 28.5 % . [facility] MCH Auto (RBC) [Entitic mass ]Ordered By: Zoey Ramirez on 08-17-2022 MCH (RBC) [Entitic mass] 24.9 pg 24.7-34.3 [facility] MCHC Auto (RBC) [Mass/Vol]Or dered By: Zoey Ramirez on 08-17-2022 MCHC (RBC) [Mass/Vol] 32.0 g/dL 32.0-35.0 [facility] MCV Auto (RBC) [Entitic vol] Ordered By: Zoey Ramirez on 08-17-2022 MCV (RBC) [Entitic vol] 77.8 fL 80-100 [facility] Monocytes Auto (Bld) [#/Vol] Ordered By: Zoey Ramirez on 08-17-2022 Monocytes (Bld) [#/Vol] 0.6 10*3/uL 0.0-0.8 [facility] Monocytes/100 WBC Auto (Bld) Ordered By: Zoey Ramirez on 08-17-2022 Monocytes/100 WBC (Bld) 5.9 % . [facility] Neutrophils Auto (Bld) [#/Vo l]Ordered By: Zoey Ramirez on 08-17-2022 Neutrophils (Bld) [#/Vol] 6.1 10*3/uL 1.8-7.7 [facility] Neutrophils/100 WBC Auto (Bl d)Ordered By: Zoey Ramirez on 08-17-2022 Neutrophils/100 WBC (Bld) 61.6 % . [facility] No Panel InformationOrdered By: Zoey Ramirez on 08-17-2022 Estimated GFR (CKD-EPI) > 60.0 mL/Min [facility] Creatinine Clearance (Chem 122.85 [facility] Protein Electrophoresis M-Antwan Not observed g/dL Not Observed [facility] Protein Electrophoresis Note See comment . [facility] Comment on above: Protein electrophore sis scan will follow via computer,mail, or wringer machine operator delivery.Performed at: [address] [id number] Director: Jeyson Duncan PhD, Phone: [phone] Serum Immunofixation Comment: . [facility] Comment on above: Presence of monoclon al protein is unclear at this time. Suggestrepeat in 3 to 6 months if clinically indicated. Urine Random Prot Electrophor Note See comment . [facility] Comment on above: Protein electrophore sis scan will follow via computer,mail, or wringer machine operator delivery.Performed at: [address] [id number] Director: Jeyson Duncan PhD, Phone: [phone] Nucleated erythrocytes [Pres ence] in Blood by Automated countOrdered By: Zoey Ramirez on 08-17-2022 Nucleated RBC Auto Ql (Bld) 0.1 /100{WBC} 0-0.5 [facility] Platelet mean volume Auto (B ld) [Entitic vol]Ordered By: Zoey Ramirez on 08-17-2022 Platelet mean volume (Bld) [Entitic vol] 8.5 fL 6.3-10.7 [facility] Platelets Auto (Bld) [#/Vol] Ordered By: Zoey Ramirez on 08-17-2022 Platelets (Bld) [#/Vol] 345 10*3/uL 150-450 [facility] Potassium [Moles/volume] in Serum or PlasmaOrdered By: Zoey Ramirez on 08-17-2022 Potassium [Moles/Vol] 4.7 mmol/L 3.5-5.1 [facility] Protein [Mass/volume] in Ser um or PlasmaOrdered By: Zoey Ramirez on 08-17-2022 Protein [Mass/Vol] 8.1 g/dL 6.4-8.9 [facility] Protein [Mass/Vol] 8.0 g/dL 6.0-8.5 [facility] Protein [Mass/volume] in Uri neOrdered By: Zoey Ramirez on 08-17-2022 Protein (U) [Mass/Vol] 75.0 mg/dL Not Estab. Fi [facility] Protein.monoclonal/Protein.t otal in 24 hour Urine by ElectrophoresisOrdered By: Zoey Ramirez on 08-17-2022 Protein.monoclonal Elph (24H U) [Mass fraction] Not observed % Not Observed [facility] RBC Auto (Bld) [#/Vol]Ordere d By: Zoey Ramirez on 08-17-2022 RBC (Bld) [#/Vol] 5.31 10*6/uL 3.60-5.00 [facility] Serum globulin measurement ( mass/volume)Ordered By: Zoey Ramirez on 08-17-2022 Globulin (S) [Mass/Vol] 4.3 g/dL 2.2-3.9 [facility] Serum or plasma albumin/glob ulin mass ratioOrdered By: Zoey Ramirez on 08-17-2022 Albumin/Globulin [Mass ratio] 1.0 {ratio} [facility] Albumin/Globulin [Mass ratio] 0.9 {ratio} 0.7-1.7 [facility] Serum or plasma alpha 1 glob ulin measurement by electrophoresis (mass/volume)Ordered By: Zoey Ramirez on 08-17-2022 Alpha 1 globulin Elph [Mass/Vol] 0.3 g/dL 0.0-0.4 [facility] Serum or plasma alpha 2 glob ulin measurement by electrophoresis (mass/volume)Ordered By: Zoey Ramirez on 08-17-2022 Alpha 2 globulin Elph [Mass/Vol] 0.8 g/dL 0.4-1.0 [facility] Serum or plasma anion gap de terminationOrdered By: Zoey Ramirez on 08-17-2022 Anion gap [Moles/Vol] 12.8 mmol/L 6.0-15.0 [facility] Serum or plasma beta globuli n measurement by electrophoresis (mass/volume)Ordered By: Zoey Ramirez on 08-17-2022 Beta globulin Elph [Mass/Vol] 1.3 g/dL 0.7-1.3 [facility] Serum or plasma gamma globul in measurement by electrophoresis (mass/volume)Ordered By: Zoey Ramirez on 08-17-2022 Gamma globulin Elph [Mass/Vol] 1.9 g/dL 0.4-1.8 [facility] Sodium [Moles/volume] in Ser um or PlasmaOrdered By: Zoey Ramirez on 08-17-2022 Sodium [Moles/Vol] 136 mmol/L 136-145 [facility] Transferrin [Mass/volume] in Serum or PlasmaOrdered By: Zoey Ramirez on 08-17-2022 Transferrin [Mass/Vol] 246 mg/dL 203-362 [facility] Urea nitrogen [Mass/volume] in Serum or PlasmaOrdered By: Zoey Ramirez on 08-17-2022 Urea nitrogen [Mass/Vol] 23 mg/dL 7-25 [facility] Urine alpha 1 globulin/total protein by electrophoresisOrdered By: Zoey Ramirez on 08-17-2022 Alpha 1 globulin Elph (U) [Mass fraction] 4.5 % . [facility] Urine alpha 2 globulin/total protein ratio by electrophoresisOrdered By: Zoey Ramirez on 08-17-2022 Alpha 2 globulin Elph (U) [Mass fraction] 7.7 % . [facility] Urine beta globulin measurem ent by electrophoresis (mass/volume)Ordered By: Zoey Ramirez on 08-17-2022 Beta globulin Elph (U) [Mass/Vol] 12.6 % . [facility] Vitamin B12 ser/plasOrdered By: Zoey Ramirez on 08-17-2022 Cobalamin (Vitamin B12) [Mass/Vol] 387 pg/mL 180-914 [facility] WBC Auto (Bld) [#/Vol]Ordere d By: Zoey Ramirez on 08-17-2022 WBC (Bld) [#/Vol] 9.9 10*3/uL 3.8-11.6 [facility] Established Visit (Orthopaed ic [...] to do her outpatient physical therapy at [facility]. She has a few visits [...] grammatical areas may persist related to the [employer] software Merrill Alejandro PA-C . Active Problems [...] on 07-23-2022 Albumin [Mass/Vol] 3.3 g/dL 2.9-4.4 [facility] Creatine kinase [Enzymatic a ctivity/volume] in Serum or PlasmaOrdered By: Lorrie Baig on 07-23-2022 CK [Catalytic activity/Vol] 51 U/L 30- [facility] Erythrocyte sedimentation ra te by Photometric methodOrdered By: Lorrie Baig on 07-23-2022 ESR Photometric method (Bld) [Velocity] 65 mm/hr 0-29 [facility] Folate [Mass/volume] in Seru m or PlasmaOrdered By: Lorrie Baig on 07-23-2022 Folate [Mass/Vol] 12.8 ng/mL >5.9 [facility] Comment on above: Folate reference ran ge: >5.9 ng/mlThe WHO technical consultation on folate and vitamin [id number] has determined that folate concentrations lessthan 4 ng/ml are considered deficient. Magnesium [Mass/volume] in S hugo or PlasmaOrdered By: Lorrie Baig on 07-23-2022 Magnesium [Mass/Vol] 1.8 mg/dL 1.9-2.7 [facility] No Panel InformationOrdered By: Lorrie Baig on 07-23-2022 Protein Electrophoresis Interpret See comment . [facility] Comment on above: Faint band in gamma region suspicious for monoclonalimmunoglobulin. This band may represent a benign spike asseen in older people or could be a paraprotein as seen inMultiple Myeloma, Waldenstrom's Macroglobulinemia orLymphoma. Depending on clinical circumstances, furtherdiagnostic studies may include serum immunofixation orserum free light chain quantitation.Performed at: [facility] [address] [id number] Director: Jeyson Duncan PhD, Phone: [phone] Protein Electrophoresis M-Antwan Comment: g/dL Not Observed [facility] Comment on above: ASYMMETRICAL GAMMA Protein Electrophoresis Note See comment . [facility] Comment on above: Protein electrophore sis scan will follow via computer,mail, or wringer machine operator delivery. Phosphate [Mass/volume] in S hugo or PlasmaOrdered By: Lorrie Baig on 07-23-2022 Phosphate [Mass/Vol] 4.5 mg/dL 3.7-7.2 [facility] Protein [Mass/volume] in Ser um or PlasmaOrdered By: Lorrie Baig on 07-23-2022 Protein [Mass/Vol] 7.2 g/dL 6.0-8.5 [facility] Serum globulin measurement ( mass/volume)Ordered By: Lorrie Baig on 07-23-2022 Globulin (S) [Mass/Vol] 3.9 g/dL 2.2-3.9 [facility] Serum or plasma albumin/glob ulin mass ratioOrdered By: Lorrie Baig on 07-23-2022 Albumin/Globulin [Mass ratio] 0.8 {ratio} 0.7-1.7 [facility] Serum or plasma alpha 1 glob ulin measurement by electrophoresis (mass/volume)Ordered By: Lorrie Baig on 07-23-2022 Alpha 1 globulin Elph [Mass/Vol] 0.3 g/dL 0.0-0.4 [facility] Serum or plasma alpha 2 glob ulin measurement by electrophoresis (mass/volume)Ordered By: Lorrie Baig on 07-23-2022 Alpha 2 globulin Elph [Mass/Vol] 0.7 g/dL 0.4-1.0 [facility] Serum or plasma beta globuli n measurement by electrophoresis (mass/volume)Ordered By: Lorrie Baig on 07-23-2022 Beta globulin Elph [Mass/Vol] 1.2 g/dL 0.7-1.3 [facility] Serum or plasma gamma globul in measurement by electrophoresis (mass/volume)Ordered By: Lorrie Baig on 07-23-2022 Gamma globulin Elph [Mass/Vol] 1.7 g/dL 0.4-1.8 [facility] Thyrotropin [Units/volume] i n Serum or PlasmaOrdered By: Lorrie Baig on 07-23-2022 TSH Qn 4.76 m[IU]/L 0.45-5.33 [facility] Vitamin B12 ser/plasOrdered By: Lorrie Baig on 07-23-2022 Cobalamin (Vitamin B12) [Mass/Vol] 358 pg/mL 180-914 [facility] KNEE 3 VIEWSon 07-14-2022 KNEE 3 VIEWS Patient Name: GEETA SHELTON STUDY: KNEE; 3 VIEWS; Right; 07/14/2022 8:47 am INDICATION: pain Z96.659: Status post total knee replacement. ACCESSION NUMBER(S): [id number] ORDERING CLINICIAN: ACOSTA SCHAFER FINDINGS: Right knee three views. Status post revision type total knee replacement components in good position no signs of fracture dislocation or other bony abnormality dee in the soft tissues anteriorly. Electronically signed by: ACOSTA SCHAFER MD [facility] Post Op (Orthopaedic Surgery )on 07-14-2022 Post [...] she will most likely do this at [facility] in [place]. Physical exam General: No acute distress and [...] grammatical areas may persist related to the [employer] software Merrill Alejandro PA-C . Active Problems Problems Acute pain of both knees (338.19,719.46) (M25.561,M25.562) Status post total knee replacement (V43.65) (Z96.659) Allergies Medication Penicillins Recorded By: Tarsha Murray; 05/18/2022 8:47:33 AM Current Meds Medication NameInstruction Xarelto 10 MG Oral TabletTake 1 tablet daily Results/Data Xray Knee 3 [id number] 08:47AMSAcosta steward Test NameResultFlagReference Xray Knee 3 View(Report) FINAL REPORT Interpreted by: ACOSTA SCHAFER BURTON, MD 07/14/22 08:49 Patient Name: GEETA SHELTON STUDY: KNEE; 3 VIEWS; Right; 07/14/2022 8:47 am INDICATION: pain Z96.659: Status post total knee replacement. ACCESSION NUMBER(S): [id number] ORDERING CLINICIAN: ACOSTA SCHAFER FINDINGS: Right knee [...] Radiologyon 07-14-2022 XR Knee 3 Views Normal -[facility] Work Phone: Basic Metabolic Panel Reflex Mgon 07-03-2022 Anion gap [Moles/Vol] 10 mmol/L Normal 9-15 [facility] Comment on above: Performed By: #### B MPX #### [facility] [address] [place] [address] Calcium [Mass/Vol] 9.2 mg/dL Normal 8.5-9.9 [facility] Comment on above: Performed By: #### B MPX #### [facility] [address] [place] [address] Chloride [Moles/Vol] 100 mmol/L Normal 95-107 [facility] Comment on above: Performed By: #### B MPX #### [facility] [address] [place] [address] CO2 [Moles/Vol] 27 mmol/L Normal 20-31 [facility] Comment on above: Performed By: #### B MPX #### [facility] [address] [place] [address] Creatinine [Mass/Vol] 0.51 mg/dL Normal 0.50-0.90 [facility] Comment on above: Performed By: #### B MPX #### [facility] [address] [place] [address] GFR >60.0 Normal >60 [facility] Comment on above: Result Comment: Pedi [...] Performed By: #### B MPX #### [facility] [address] [place] [address] Glucose [Mass/Vol] 132 mg/dL Critically high 70-99 [facility] Comment on above: Performed By: #### B MPX #### [facility] [address] [place] [address] Magnesium [Moles/Vol] 4.6 mmol/L Normal 3.4-4.9 [facility] Comment on above: Performed By: #### B MPX #### [facility] [address] [place] [address] Sodium [Moles/Vol] 137 mmol/L Normal 135-144 [facility] Comment on above: Performed By: #### B MPX #### [facility] [address] [place] [address] Urea nitrogen [Mass/Vol] 12 mg/dL Normal 6-20 [facility] Comment on above: Performed By: #### B MPX #### [facility] [address] [place] [address] Basic Metabolic Panel w/ Ref hillary to MGon 07-03-2022 Anion gap [Moles/Vol] 10 mmol/L [facility] [employer] Calcium [Mass/Vol] 9.2 mg/dL 8.5 - 9.9 mg/dL [facility] Chloride [Moles/Vol] 100 mmol/L [facility] [employer] CO2 [Moles/Vol] 27 mmol/L [facility] [employer] Creatinine [Mass/Vol] 0.51 mg/dL 0.50 - 0.90 mg/dL [facility] [employer] GFR/1.73 sq M.predicted MDRD (S/P/Bld) [Vol rate/Area] 60 - PINF [facility] Comment on above: Pediatric calculator link https://www.kidney.org/professionals/kdoqi/gfr_calculatorped [...] 132 mg/dL High 70 - 99 mg/dL [facility] Interpretation and review of laboratory results Abnormal [facility] Potassium reflex Magnesium 4.6 [facility] Sodium [Moles/Vol] 137 mmol/L [facility] Urea nitrogen (BldV) [Mass/Vol] 12 mg/dL 6 - 20 mg/dL [facility] CBCon 07-03-2022 Hematocrit (Bld) [Volume fraction] 39.9 % 37.0 - 47.0 % [facility] Hemoglobin (Bld) [Mass/Vol] 12.9 g/dL 12.0 - 16.0 g/dL [facility] Interpretation and review of laboratory results Abnormal [facility] MCH (RBC) [Entitic mass] 25.7 pg Low 27. 0 - 31.3 pg [facility] MCHC (RBC) [Mass/Vol] 32.3 % Low 33.0 - 37.0 % [facility] MCV (RBC) [Entitic vol] 79.6 fL 79.4 - 94.8 fL [facility] Platelet distribution width (Bld) [Ratio] 16.5 % High 11.5 - 14.5 % [facility] Platelets (Bld) [#/Vol] 230 10*3/uL 130 - 400 K/uL [facility] RBC (Bld) [#/Vol] 5.02 10*6/uL [facility] WBC (Bld) [#/Vol] 9.2 10*3/uL 4.8 - 10.8 K/uL [facility] CBC With Platelet No Differe ntialon 07-03-2022 Erythrocyte distribution width (RBC) [Ratio] 16.5 % Critically high 11.5-14.5 [facility] Comment on above: Performed By: #### C BCND #### [facility] [address] [place] [address] Hematocrit (Bld) [Volume fraction] 39.9 % Normal 37.0-47.0 [facility] Comment on above: Performed By: #### C BCND #### [facility] [address] [place] [address] Hemoglobin (Bld) [Mass/Vol] 12.9 g/dL Normal 12.0-16.0 [facility] Comment on above: Performed By: #### C BCND #### [facility] [address] [place] [address] MCH (RBC) [Entitic mass] 25.7 pg Low 27.0-31.3 [facility] Comment on above: Performed By: #### C BCND #### [facility] [address] [place] [address] MCHC 32.3 % Low 33.0-37.0 [facility] Comment on above: Performed By: #### C BCND #### [facility] [address] [place] [address] MCV (RBC) [Entitic vol] 79.6 fL Normal 79.4-94.8 M [facility] Comment on above: Performed By: #### C BCND #### [facility] [address] [place] [address] Platelets (Bld) [#/Vol] 230 10*3/uL Normal 130-400 [facility] Comment on above: Performed By: #### C BCND #### [facility] [address] [place] [address] RBC (Bld) [#/Vol] 5.02 10*6/uL Normal 4.20-5.40 [facility] Comment on above: Performed By: #### C BCND #### [facility] [address] [place] [address] WBC (Bld) [#/Vol] 9.2 10*3/uL Normal 4.8-10.8 [facility] Comment on above: Performed By: #### C BCND #### [facility] [address] [place] [address] Basic Metabolic Panel Reflex Mgon 07-02-2022 Anion gap [Moles/Vol] 8 mmol/L Low 9-15 [facility] Comment on above: Order Comment: Daja ction has been rescheduled by HERAM at 07/02/2022 05:49 Reason: Come back last per rn fouzia Performed By: #### B MPX #### [facility] [address] [place] [address] Calcium [Mass/Vol] 8.9 mg/dL Normal 8.5-9.9 [facility] Comment on above: Order Comment: Daja ction has been rescheduled by HERAM at 07/02/2022 05:49 Reason: Come back last per rn fouzia Performed By: #### B MPX #### [facility] [address] [place] [address] Chloride [Moles/Vol] 100 mmol/L Normal 95-107 [facility] Comment on above: Order Comment: Daja ction has been rescheduled by HERAM at 07/02/2022 05:49 Reason: Come back last per rn fouzia Performed By: #### B MPX #### [facility] [address] [place] [address] CO2 [Moles/Vol] 27 mmol/L Normal 20-31 [facility] Comment on above: Order Comment: Colle ction has been rescheduled by HERAM at 07/02/2022 05:49 Reason: Come back last per rn fouzia Performed By: #### B MPX #### [facility] [address] [place] [address] Creatinine [Mass/Vol] 0.61 mg/dL Normal 0.50-0.90 [facility] Comment on above: Order Comment: Colle ction has been rescheduled by HERAM at 07/02/2022 05:49 Reason: Come back last per rn fouzia Performed By: #### B MPX #### [facility] [address] [place] [address] GFR >60.0 Normal >60 [facility] Comment on above: [...] Performed By: #### B MPX #### [facility] [address] [place] [address] Glucose [Mass/Vol] 144 mg/dL Critically high 70-99 M [facility] Comment on above: Order Comment: Daja zamarripa has been rescheduled by HERAM at 07/02/2022 05:49 Reason: Come back last per rn fouzia Performed By: #### B MPX #### [facility] [address] [place] [address] Magnesium [Moles/Vol] 4.8 mmol/L Normal 3.4-4.9 [facility] Comment on above: Order Comment: Daja zamarripa has been rescheduled by HERAM at 07/02/2022 05:49 Reason: Come back last per rn fouzia Performed By: #### B MPX #### [facility] [address] [place] [address] Sodium [Moles/Vol] 135 mmol/L Normal 135-144 [facility] Comment on above: Order Comment: Daja zamarripa has been rescheduled by HERAM at 07/02/2022 05:49 Reason: Come back last per rn fouzia Performed By: #### B MPX #### [facility] [address] [place] [id number] Urea nitrogen [Mass/Vol] 21 mg/dL Critically high 6-20 [facility] Comment on above: Order Comment: Daja zamarripa has been rescheduled by VALDO at 07/02/2022 05:49 Reason: Come back last per rn fouzia Performed By: #### B MPX #### [facility] [address] [place] [address] Basic Metabolic Panel w/ Ref hillary to MGon 07-02-2022 Anion gap [Moles/Vol] 8 mmol/L Low [facility] Last Size Calcium [Mass/Vol] 8.9 mg/dL 8.5 - 9.9 mg/dL [facility] Last Size Chloride [Moles/Vol] 100 mmol/L [facility] Last Size CO2 [Moles/Vol] 27 mmol/L [facility] Last Size Creatinine [Mass/Vol] 0.61 mg/dL 0.50 - 0.90 mg/dL [facility] Last Size GFR/1.73 sq M.predicted MDRD (S/P/Bld) [Vol rate/Area] 60 - [facility] Comment on above: Pediatric calculator link https://www.kidney.org/professionals/kdoqi/gfr_calculatorped [...] 144 mg/dL High 70 - 99 mg/dL Software 2000 Interpretation and review of laboratory results Abnormal [facility] Last Size Potassium reflex Magnesium 4.8 [facility] Last Size Sodium [Moles/Vol] 135 mmol/L [facility] Last Size Urea nitrogen (BldV) [Mass/Vol] 21 mg/dL High 6 - 20 mg/dL [facility] [employer] Collection has been rescheduled by VALDO at 07/02/2022 05:49 Reason: Come back last per kip galdamezfouzia [facility] CBCon 07-02-2022 Hematocrit (Bld) [Volume fraction] 40.3 % 37.0 - 47.0 % [facility] Hemoglobin (Bld) [Mass/Vol] 12.9 g/dL 12.0 - 16.0 g/dL [facility] Interpretation and review of laboratory results Abnormal [facility] MCH (RBC) [Entitic mass] 25.5 pg Low 27. 0 - 31.3 pg [facility] MCHC (RBC) [Mass/Vol] 32.1 % Low 33.0 - 37.0 % [facility] MCV (RBC) [Entitic vol] 79.6 fL 79.4 - 94.8 fL [facility] Platelet distribution width (Bld) [Ratio] 16.3 % High 11.5 - 14.5 % [facility] Platelets (Bld) [#/Vol] 230 10*3/uL 130 - 400 K/uL [facility] RBC (Bld) [#/Vol] 5.06 10*6/uL [facility] WBC (Bld) [#/Vol] 9.1 10*3/uL 4.8 - 10.8 K/uL [facility] Collection has been rescheduled by VALDO at 07/02/2022 05:49 Reason: Come back last per kip galdamezfouzia [facility] CBC With Platelet No Differe ntialon 07-02-2022 Erythrocyte distribution width (RBC) [Ratio] 16.3 % Critically high 11.5-14.5 [facility] Comment on above: Order Comment: Colle ction has been rescheduled by VALDO at 07/02/2022 05:49 Reason: Come back last per kip reinoso Performed By: #### C BCND #### [facility] [address] [place] [address] Hematocrit (Bld) [Volume fraction] 40.3 % Normal 37.0-47.0 [facility] Comment on above: Order Comment: Daja ctjanie has been rescheduled by HERAM at 07/02/2022 05:49 Reason: Come back last per rn fouzia Performed By: #### C BCND #### [facility] [address] [place] [address] Hemoglobin (Bld) [Mass/Vol] 12.9 g/dL Normal 12.0-16.0 [facility] Comment on above: Order Comment: Daja ctjanie has been rescheduled by HERAM at 07/02/2022 05:49 Reason: Come back last per rn fouzia Performed By: #### C BCND #### [facility] [address] [place] [address] MCH (RBC) [Entitic mass] 25.5 pg Low 27.0-31.3 [facility] Comment on above: Order Comment: Daja ctjanie has been rescheduled by HERAM at 07/02/2022 05:49 Reason: Come back last per rn fouzia Performed By: #### C BCND #### [facility] [address] [place] [address] MCHC 32.1 % Low 33.0-37.0 [facility] Comment on above: Order Comment: Daja zamarripa has been rescheduled by HERAM at 07/02/2022 05:49 Reason: Come back last per rn fouzia Performed By: #### C BCND #### [facility] [address] [place] [address] MCV (RBC) [Entitic vol] 79.6 fL Normal 79.4-94.8 M [facility] Comment on above: Order Comment: Daja ctjanie has been rescheduled by HERAM at 07/02/2022 05:49 Reason: Come back last per rn fouzia Performed By: #### C BCND #### [facility] [address] [place] [address] Platelets (Bld) [#/Vol] 230 10*3/uL Normal 130-400 [facility] Comment on above: Order Comment: Daja zamarripa has been rescheduled by HERAM at 07/02/2022 05:49 Reason: Come back last per rn fouzia Performed By: #### C BCND #### [facility] [address] [place] [address] RBC (Bld) [#/Vol] 5.06 10*6/uL Normal 4.20-5.40 [facility] Comment on above: Order Comment: Daja zamarripa has been rescheduled by HERAM at 07/02/2022 05:49 Reason: Come back last per rn fouzia Performed By: #### C BCND #### [facility] [address] [place] [address] WBC (Bld) [#/Vol] 9.1 10*3/uL Normal 4.8-10.8 [facility] Comment on above: Order Comment: Daja zamarripa has been rescheduled by HERAM at 07/02/2022 05:49 Reason: Come back last per rn fouzia Performed By: #### C BCND #### [facility] [address] [place] [address] US DUP UPPER EXTREMITY LEFT VENOUSon 07-02-2022 [...] Sifuentes MD 07/02/[address] [facility] No evidence of DVT. [facility] RADIOLOGY EXAMINATION: VENOUS ULTRASOUND OF THE [...] color flow study and spectral analysis. [facility] Jean Sifuentes MD - 07/02/2022 [...] spectral analysis. IMPRESSION: No evidence of DVT. [employer] Phone: [employer] Phone: Radiology Study observation (narrative) [employer] Phone: XR KNEE RIGHT (1-2 VIEWS)on 07-01-2022 [...] Sifuentes MD 07/01/[address] [facility] Normal postsurgical appearance [facility] RADIOLOGY EXAMINATION: TWO XRAY VIEWS OF [...] intact. Overlying surgical dee are seen [facility]IOLOG[facility] Jean Sifuentes MD - 07/01/2022 [...] dee are seen IMPRESSION: Normal postsurgical appearance Software 2000 Work Phone: Radiology Study observation (narrative) [employer] Work Phone: XR KNEE RIGHT (1-2 VIEWS)Ord ered By: Jean Sifuentes on 07-01-2022 Software 2000 Work Phone: MRSA DNA Probe, Nasalon MRSA, DNA, Nasal Negative NEG [employer] Comment on above: NEGATIVE: MRSA DNA n ot detected by nucleic acid amplification. Results should be used as an adjunct to nosocomial control efforts to identify patients needing enhanced precautions. The test is not intended to identify patients with staphylococcal infections. Results should not be used to guide or monitor treatment for MRSA infections. [employer] [address] [place] [address] Specimen Description Sw[employer] Software 2000 [facility] [employer] MRSA, DNA, Nasalon 3 MRSA, DNA, Nasal Negative Normal NEG [facility] Comment on above: Result Comment: NEGA TIVE: MRSA DNA not detected by nucleic acid amplification. Results should be used as an adjunct to nosocomial control efforts to identify patients needing enhanced precautions. The test is not intended to identify patients with staphylococcal infections. Results should not be used to guide or monitor treatment for MRSA infections. [employer] [address] [place] [address] Performed By: #### I MRSA #### [facility] [address] [place] [address] EKG 12 LeadOrdered By: Leigh Ann Nash on 06-25-2022 Atrial Rate 73 BPM Software 2000 Work Phone: P [place] 33 degrees Software 2000 Work Phone: P-R Interval 160 ms Software 2000 Work Phone: Q-T Interval 406 ms Software 2000 Work Phone: QRS Duration 102 ms Software 2000 Work Phone: QTc Calculation (Bazett) 447 ms Software 2000 Work Phone: R [place] 74 degrees Software 2000 Work Phone: T [place] 65 degrees Software 2000 Work Phone: Ventricular Rate 73 BPM [employer] Work Phone: BON [employer] Work Phone: EKG 12 Leadon 06-25-2022 Normal sinus rhythm Incomplete right bundle branch block Confirmed by LEIGH ANN ANSH ([id number]) on 06/25/2022 6:49:48 PM Leigh Ann Sumner F, DO - 06/25/2022 Normal sinus rhythm Incomplete right bundle branch block Confirmed by LEIGH ANN NASH ([id number]) on 06/25/2022 6:49:48 PM [employer] Last Size Work Phone: Established Visit (Orthopaed ic Surgery)on 06-25-2022 Established Visit (Orthopaedic Surgery) Chief Complaint Pre-op RT TK-Revision 07/01/[address] [facility] History of Present Illness This patient [...] plans on performing outpatient physical therapy at [facility] in [place]. All of the patient's questions and concerns were answered. This note was prepared using voice recognition software. The details of this note are correct and have been reviewed, and corrected to the best of my ability. Some grammatical areas may persist related to the [employer]SE[employer] software Merrill Alejandro PA-C . Active Problems Problems Acute pain of both knees (338.19,719.46) (M25.561,M25.562) Allergies Medication Penicillins Recorded By: Tarsha Murray; 05/18/2022 8:47:33 AM Signatures Electronically signed by : Merrill Alejandro PA-C; Jun 25 2022 2:21PM EST (Author) Normal Heysan PT Initial Evaluationon 03-0 PT Initial Evaluation [...] Evaluation, Pre-Op . Referred by: Dr. Acosta Schfaer Adult Risk Screening Initial Fall Risk Screening: GEETA has not fallen in the last 6 months. GEETA does not have a fear of falling. The patient is not using an assistive device. Fall Risk Screening: patient is not considered a fall risk. Insurance Insurance reviewed Visit number: 1 [facility] Subjective Current Episode of Functional Impairment and/or [...] today's treatment with some difficulty. Evaluation Code: 84830 PT Eval: Low Complexity, 32 min(s). Resources provided today: education Signatures Electronically signed by : Natali Tyson, PT DPT; Jun 30 2022 10:08AM EST (Author) Normal Touchworks APTTon 06-24-2022 aPTT Coag (Bld) [Time] 30.1 s YECENIA N [facility] Comment on above: Effective 02/27/2020: Heparin Therapeutic Range: 64.0 98.0 seconds. BON [facility] CBC With Platelet and Differ entialon 06-24-2022 Basophils (Bld) [#/Vol] 0.1 10*3/uL Normal 0.0-0.2 [facility] Comment on above: Performed By: #### C BCWD #### [facility] [address] [place] [address] Basophils/100 WBC (Bld) 0.6 % Normal M [facility] Comment on above: Performed By: #### C BCWD #### [facility] [address] [place] [address] Eosinophils (Bld) [#/Vol] 0.1 10*3/uL Normal 0.0-0.7 [facility] Comment on above: Performed By: #### C BCWD #### [facility] [address] [place] [address] Eosinophils/100 WBC (Bld) 1.6 % Normal [facility] Comment on above: Performed By: #### C BCWD #### [facility] [address] [place] [address] Erythrocyte distribution width (RBC) [Ratio] 16.4 % Critically high 11.5-14.5 [facility] Comment on above: Performed By: #### C BCWD #### [facility] [address] [place] [address] Hematocrit (Bld) [Volume fraction] 44.4 % Normal 37.0-47.0 [facility] Comment on above: Performed By: #### C BCWD #### [facility] [address] [place] [address] Hemoglobin (Bld) [Mass/Vol] 14.2 g/dL Normal 12.0-16.0 [facility] Comment on above: Performed By: #### C BCWD #### [facility] [address] [place] [address] Lymphocytes (Bld) [#/Vol] 2.3 10*3/uL Normal 1.0-4.8 [facility] Comment on above: Performed By: #### C BCWD #### [facility] [address] [place] [address] Lymphocytes/100 WBC (Bld) 25.8 % Normal [facility] Comment on above: Performed By: #### C BCWD #### [facility] [address] [place] [address] MCH (RBC) [Entitic mass] 25.1 pg Low 27.0-31.3 [facility] Comment on above: Performed By: #### C BCWD #### [facility] [address] [place] [address] MCHC 32.0 % Low 33.0-37.0 [facility] Comment on above: Performed By: #### C BCWD #### [facility] [address] [place] [address] MCV (RBC) [Entitic vol] 78.5 fL Low 79.4-94.8 M [facility] Comment on above: Performed By: #### C BCWD #### [facility] [address] [place] [address] Monocytes (Bld) [#/Vol] 0.8 10*3/uL Normal 0.2-0.8 [facility] Comment on above: Performed By: #### C BCWD #### [facility] [address] [place] [address] Monocytes/100 WBC (Bld) 9.4 % Normal [facility] Comment on above: Performed By: #### C BCWD #### [facility] [address] [place] [address] Neutrophils (Bld) [#/Vol] 5.6 10*3/uL Normal 1.4-6.5 [facility] Comment on above: Performed By: #### C BCWD #### [facility] [address] [place] [address] Neutrophils/100 WBC (Bld) 62.6 % Normal [facility] Comment on above: Performed By: #### C BCWD #### [facility] [address] [place] [address] Platelets (Bld) [#/Vol] 281 10*3/uL Normal 130-400 [facility] Comment on above: Performed By: #### C BCWD #### [facility] [address] [place] [address] RBC (Bld) [#/Vol] 5.66 10*6/uL Critically high 4.20-5.40 [facility] Comment on above: Performed By: #### C BCWD #### [facility] [address] [place] [address] WBC (Bld) [#/Vol] 8.9 10*3/uL Normal 4.8-10.8 [facility] Comment on above: Performed By: #### C BCWD #### [facility] [address] [place] [address] CBC with Auto Differentialon 06-24-2022 Basophils (Bld) [#/Vol] 0.1 10*3/uL 0.0 - 0.2 K/uL [facility] Basophils/100 WBC (Bld) 0.6 % B ON [facility] Eosinophils (Bld) [#/Vol] 0.1 10*3/uL 0.0 - 0.7 K/uL [facility] Eosinophils/100 WBC (Bld) 1.6 % [facility] Hematocrit (Bld) [Volume fraction] 44.4 % 37.0 - 47.0 % [facility] Hemoglobin (Bld) [Mass/Vol] 14.2 g/dL 12.0 - 16.0 g/dL [facility] Interpretation and review of laboratory results Abnormal BON [facility] Lymphocytes (Bld) [#/Vol] 2.3 10*3/uL 1.0 - 4.8 K/uL [facility] Lymphocytes/100 WBC (Bld) 25.8 % [facility] MCH (RBC) [Entitic mass] 25.1 pg Low 27. 0 - 31.3 pg [facility] MCHC (RBC) [Mass/Vol] 32.0 % Low 33.0 - 37.0 % [facility] MCV (RBC) [Entitic vol] 78.5 fL Low 79.4 - 94.8 fL [facility] Monocytes (Bld) [#/Vol] 0.8 10*3/uL 0.2 - 0.8 K/uL [facility] Monocytes/100 WBC (Bld) 9.4 % B ON [facility] Neutrophils Absolute 5.6 K/uL 1.4 - 6 .5 K/uL [facility] Neutrophils/100 WBC (Bld) 62.6 % [facility] Platelet distribution width (Bld) [Ratio] 16.4 % High 11.5 - 14.5 % [facility] Platelets (Bld) [#/Vol] 281 10*3/uL 130 - 400 K/uL [facility] RBC (Bld) [#/Vol] 5.66 10*6/uL [facility] WBC (Bld) [#/Vol] 8.9 10*3/uL 4.8 - 10.8 K/uL [facility] Comprehensive Metabolic Pane gretel 06-24-2022 Albumin [Mass/Vol] 4.2 g/dL Normal 3.5-4.6 [facility] Comment on above: Performed By: #### U MARIA ELENA #### [facility] [address] [place] [address] ALP [Catalytic activity/Vol] 89 U/L Normal 40-130 [facility] Comment on above: Performed By: #### U MARIA ELENA #### [facility] [address] [place] [address] ALT [Catalytic activity/Vol] 47 U/L Critically high 0-33 [facility] Comment on above: Performed By: #### U MARIA ELENA #### [facility] [address] [place] [address] Anion gap [Moles/Vol] 13 mmol/L Normal 9-15 [facility] Comment on above: Performed By: #### U MARIA ELENA #### [facility] [address] [place] [address] AST [Catalytic activity/Vol] 44 U/L Critically high 0-35 [facility] Comment on above: Performed By: #### U MARIA ELENA #### [facility] [address] [place] [address] Bilirubin [Mass/Vol] 0.5 mg/dL Normal 0.2-0.7 [facility] Comment on above: Performed By: #### U MARIA ELENA #### [facility] [address] [place] [address] Calcium [Mass/Vol] 9.2 mg/dL Normal 8.5-9.9 [facility] Comment on above: Performed By: #### U MARIA ELENA #### [facility] [address] [place] [address] Chloride [Moles/Vol] 100 mmol/L Normal 95-107 [facility] Comment on above: Performed By: #### U MARIA ELENA #### [facility] [address] [place] [address] CO2 [Moles/Vol] 26 mmol/L Normal 20-31 [facility] Comment on above: Performed By: #### U MARIA ELENA #### [facility] [address] [place] [address] Creatinine [Mass/Vol] 0.54 mg/dL Normal 0.50-0.90 [facility] Comment on above: Performed By: #### U MARIA ELENA #### [facility] [address] [place] [address] GFR >60.0 Normal >60 [facility] Comment on above: Result Comment: Myra [...] By: #### U MARIA ELENA #### [facility] [address] [place] [address] Globulin (S) [Mass/Vol] 3.9 g/dL Critically high 2.3-3.5 [facility] Comment on above: Performed By: #### U MARIA ELENA #### [facility] [address] [place] [address] Glucose [Mass/Vol] 124 mg/dL Critically high 70-99 M [facility] Comment on above: Performed By: #### U MARIA ELENA #### [facility] [address] [place] [address] Potassium [Moles/Vol] 4.4 mmol/L Normal 3.4-4.9 [facility] Comment on above: Performed By: #### U MARIA ELENA #### [facility] [address] [place] [address] Protein [Mass/Vol] 8.1 g/dL Critically high 6.3-8.0 M [facility] Comment on above: Performed By: #### U MARIA ELENA #### [facility] [address] [place] [address] Sodium [Moles/Vol] 139 mmol/L Normal 135-144 [facility] Comment on above: Performed By: #### U MARIA ELENA #### [facility] [address] [place] [address] Urea nitrogen [Mass/Vol] 14 mg/dL Normal 6-20 [facility] Comment on above: Performed By: #### U MARIA ELENA #### [facility] [address] [place] [address] Albumin [Mass/Vol] 4.2 g/dL 3.5 - 4.6 g/dL [facility] ALP (Bld) [Catalytic activity/Vol] 89 U/L 40 - 130 U/L [facility] ALT [Catalytic activity/Vol] 47 U/L High 0 - 33 U/L [facility] Anion gap [Moles/Vol] 13 mmol/L [facility] AST [Catalytic activity/Vol] 44 U/L High 0 - 35 U/L [facility] Bilirubin [Mass/Vol] 0.5 mg/dL 0.2 - 0 .7 mg/dL [facility] Calcium [Mass/Vol] 9.2 mg/dL 8.5 - 9.9 mg/dL [facility] Chloride [Moles/Vol] 100 mmol/L [facility] CO2 [Moles/Vol] 26 mmol/L [facility] Creatinine [Mass/Vol] 0.54 mg/dL 0.50 - 0.90 mg/dL [facility] GFR/1.73 sq M.predicted MDRD (S/P/Bld) [Vol rate/Area] 60 - PINF [facility] Comment on above: Pediatric calculator link https://www.kidney.org/professionals/kdoqi/gfr_calculatorped [...] 3.9 g/dL High 2.3 - 3.5 g/dL [facility] Glucose [Mass/Vol] 124 mg/dL High 70 - 99 mg/dL [facility] Interpretation and review of laboratory results Abnormal [facility] Potassium [Moles/Vol] 4.4 mmol/L [facility] Protein [Mass/Vol] 8.1 g/dL High 6.3 - 8.0 g/dL [facility] Sodium [Moles/Vol] 139 mmol/L [facility] Urea nitrogen (BldV) [Mass/Vol] 14 mg/dL 6 - 20 mg/dL [facility] Laboratory - Coagulationon 0 06-24-2022 INR Coag (Bld) [Relative time] 1.1 {INR} Normal [facility] Work Phone: Laboratory - Hematology and Cell countson 06-24-2022 Basophils/100 WBC (Bld) 0.6 % [facility] Work Phone: Eosinophils/100 WBC (Bld) 1.6 % Normal [facility] Work Phone: Lymphocytes/100 WBC (Bld) 25.8 % Normal [facility] Work Phone: Monocytes/100 WBC (Bld) 9.4 % [facility] Work Phone: Neutrophils/100 WBC (Bld) 62.6 % Normal [facility] Work Phone: MRSA, DNA, Nasalon Specimen Description Swab Normal [facility] Comment on above: Performed By: #### I MRSA #### [facility] [address] [place] [id number] [phone] Microscopic Urinalysison Bacteria, UA FEW Abnormal Negative /HPF [facility] Epithelial Cells, UA 0-2 [facility] Hyaline Casts, UA 0-1 [facility] RBC, UA 0-2 [facility] WBC, UA 3-5 [facility] No Panel Informationon 06-24 Interpretation and review of laboratory results Abnormal [facility] TRACE Abnormal Negative [facility] Work Phone: Negative Normal Negative [facility] Work Phone: 0.2 {E.U./dL} Normal < 2.0 [facility] Work Phone: 30 mg/dL Abnormal Negative [facility] Work Phone: 7.0 1 Normal 5.0-9.0 [facility] Work Phone: Not Indicated Normal [facility] Work Phone: 1.010 1 Normal 1.005-1.03 [facility] Work Phone: Clear Normal Clear [facility] Work Phone: Yellow Normal [place] [facility] Work Phone: 0-2 Normal 0-5 [facility] Work Phone: 3-5 Normal 0-5 [facility] Work Phone: 0-1 Normal 0-5 [facility] Work Phone: FEW Abnormal Negative [facility] Work Phone: [phone] K/uL Normal 130-400 [facility] Work Phone: [phone] 16.4 % above high threshold 11.5-14.5 [facility] Work Phone: [phone] 32.0 % below low threshold 33.0-37.0 [facility] Work Phone: [phone] 0.1 K/uL Normal 0.0-0.2 [facility] Work Phone: [phone] 0.8 K/uL Normal 0.2-0.8 [facility] Work Phone: [phone] 2.3 K/uL Normal 1.0-4.8 [facility] Work Phone: [phone] 5.6 K/uL Normal 1.4-6.5 [facility] Work Phone: [phone] 25.1 pg below low threshold 27.0-31.3 [facility] Work Phone: [phone] 78.5 fL below low threshold 79.4-94.8 [facility] Work Phone: [phone] 44.4 % Normal 37.0-47.0 [facility] Work Phone: [phone] 14.2 g/dL Normal 12.0-16.0 [facility] Work Phone: [phone] 5.66 {M/uL} above high threshold 4.20-5.40 [facility] Work Phone: [phone] 8.9 K/uL Normal 4.8-10.8 [facility] [...] [facility] Work Phone: >60.0 Normal >60 [facility] Work Phone: Comment on above: Pediatric calculator [...] [facility] Work Phone: 14 mg/dL Normal 6-[address] [facility] Work Phone: 124 mg/dL above high threshold 70-[address] [facility] Work Phone: 13 {mEq/L} Normal 9-[address] [facility] Work Phone: 26 {mEq/L} Normal 20-[address] [facility] Work Phone: 100 {mEq/L} Normal 95-[address] [facility] Work Phone: 4.4 {mEq/L} Normal 3.4-4.[address] [facility] Work Phone: 139 {mEq/L} Normal 135-144 [facility] Work Phone: Negative Normal NEG [facility] Work Phone: Comment on above: NEGATIVE: MRSA DNA n ot detected by nucleic acid amplification. Results should be used as an adjunct to nosocomial control efforts toidentify patients needing enhanced precautions.The test is not intended to identify patients with staphylococcalinfections. Results should not be used to guide or monitor treatmentfor MRSA infections.[facility] [place] [address] Swab Normal [facility] Work Phone: Partial Thromboplastin Timeo n 06-24-2022 aPTT Coag (Bld) [Time] 30.1 s Normal 24.4-36.8 [facility] Comment on above: Result Comment: Effe ctive 02/27/2020: Heparin Therapeutic Range: 64.0 ? 98.0 seconds. Performed By: #### U MARIA ELENA #### [facility] [address] [place] [address] Prothrombin Timeon 3 INR Coag (PPP) [Relative time] 1.1 {INR} Normal [facility] Comment on above: Performed By: #### P T #### [facility] [address] [place] [address] PT Coag (PPP) [Time] 14.8 s Normal 12.3-14.9 [facility] Comment on above: Performed By: #### P T #### [facility] [address] [place] [address] Protime-INRon 06-24-2022 INR Coag (Bld) [Relative time] 1.1 {INR} [facility] PT Coag (PPP) [Time] 14.8 s [facility] [employer] TYPE AND SCREENon 06-24-2022 ABO/Rh Negative [facility] Comment on above: @06/24/22 14:01 by Elaina FISCHER: BACK TYPE CONFIRMED IN TUBE. LMB Confirmation type ne eds to be drawn. [facility] Type and 3 cell Screen OB Ca ptureon 06-24-2022 Type and 3 cell Screen OB Capture PATIENT: PINKY Prince LOC: GIFTYBILL# : [id number] : 1970 SEX: F ORDERED BY: GILMAR COX ORDERED : 06/24/2022 11:08 COLLECTED: 06/24/2022 11:45 ORDER : [id number] RECEIVED : 06/24/2022 11:45 Confirmation type needs to be drawn. --- TEST NAME RESULT UNITS RANGES ABN FL ST [facility] Capture A NEG F @06/24/22 14:01 by RUDY: BACK TYPE CONFIRMED IN TUBE. LMB Antibody 3 Cell Scrn Captu NEG F -- Normal [facility] Comment on above: Performed By: #### T SO3C #### [facility] [address] [place] [address] Urinalysis with Reflex to Cu ltureon 06-24-2022 Bilirubin Urine Negative Negative [facility] [employer] Blood, Urine Negative Negative [facility] Clarity, UA Clear Clear [facility] Color, UA Yellow [place] [facility] Glucose, Ur Negative Negative mg/dL [facility] Ketones Ql (U) Negative Negative mg/dL [facility] Leukocyte esterase Test strip Ql (U) TRACE Abnormal Negative [facility] Nitrite, Urine Negative Negative [facility] [employer] pH, UA 7.0 5.0 - 9.0 [facility] Protein (U) [Mass/Vol] 30 mg/dL Abnormal Negative [facility] [employer] Specific [place], UA 1.010 1.005 - 1.030 [facility] Urine Reflex to Culture Not Indicated [facility] [employer] Urobilinogen, Urine 0.2 NINF [facility] Urinalysis, reflex to cultur gurinder 06-24-2022 Urine Reflexed to Culture Not Indicated Normal [facility] Comment on above: Performed By: #### U AR #### [facility] [address] [place] [address] Bilirubin Ql (U) Negative Normal Negative [facility] Comment on above: Performed By: #### U AR #### [facility] [address] [place] [address] Clarity (U) Clear Normal Clear [facility] Comment on above: Performed By: #### U AR #### [facility] [address] [place] [address] Color (U) Yellow Normal [place] [facility] Comment on above: Performed By: #### U AR #### [facility] [address] [place] [address] Glucose Ql (U) Negative Normal Negative [facility] Comment on above: Performed By: #### U AR #### [facility] [address] [place] [address] Hemoglobin Ql (U) Negative Normal Negative [facility] Comment on above: Performed By: #### U AR #### [facility] [address] [place] [address] Ketones Ql (U) Negative Normal Negative [facility] Comment on above: Performed By: #### U AR #### [facility] [address] [place] [address] Leukocyte esterase Test strip Ql (U) TRACE Abnormal Negative [facility] Comment on above: Performed By: #### U AR #### [facility] [address] [place] [address] Nitrite Ql (U) Negative Normal Negative [facility] Comment on above: Performed By: #### U AR #### [facility] [address] [place] [address] pH (U) 7.0 [pH] Normal 5.0-9.0 [facility] Comment on above: Performed By: #### U AR #### [facility] [address] [place] [address] Protein Ql (U) 30 mg/dL Abnormal Negative [facility] Comment on above: Performed By: #### U AR #### [facility] [address] [place] [address] Specific gravity (U) [Rel density] 1.010 Normal 1.005-1.03 [facility] Comment on above: Performed By: #### U AR #### [facility] [address] [place] [address] Urobilinogen Qn (U) 0.2 {Reji'U}/dL Normal < 2.0 [facility] Comment on above: Performed By: #### U AR #### [facility] [address] [place] [address] Urine Microscopicon 06-25-19 23 Urine Bacteria FEW Abnormal Negative [facility] Comment on above: Performed By: #### U MARIA ELENA #### [facility] [address] [place] [address] Urine Epithelial Cells Auto 0-2 Normal 0-5 [facility] Comment on above: Performed By: #### U MARIA ELENA #### [facility] [address] [place] [address] Urine Hyaline Casts Auto 0-1 Normal 0-5 [facility] Comment on above: Performed By: #### U MARIA ELENA #### [facility] [address] [place] [address] Urine RBC Auto 0-2 Normal 0-5 [facility] Comment on above: Performed By: #### U MARIA ELENA #### [facility] [address] [place] [address] Urine WBC Auto 3-5 Normal 0-5 [facility] Comment on above: Performed By: #### U MARIA ELENA #### [facility] [address] [place] [address] BILATERAL KNEE COMPLT, 4 OR MORE VIEWSon 05-18-2022 BILATERAL KNEE COMPLT, 4 OR MORE VIEWS Patient Name: GEETA SHELTON STUDY: BILATERAL KNEE; COMPLT, 4 OR MORE VIEWS; ; 05/18/2022 9:07 am INDICATION: pain M25.561: Acute pain of both knees M25.562:. ACCESSION NUMBER(S): [id number] ORDERING CLINICIAN: ACOSTA SCHAFER FINDINGS: Weightbearing four [...] Electronically signed by: ACOSTA SCHAFER MD Normal [facility] Initial Visit (Orthopaedic S urgery)on [...] Knee 4 Views Normal [facility] Work Phone: Albumin [Mass/volume] in Ser um or PlasmaOrdered By: Elizabeth Alvarado on 05-07-2022 Albumin [Mass/Vol] 3.9 g/dL 3.2-5.5 [facility] Alkaline phosphatase [Enzyma tic activity/volume] in Serum or PlasmaOrdered By: Elizabeth Alvarado on 05-07-2022 ALP [Catalytic activity/Vol] 83 U/L 32-92 [facility] Aspartate aminotransferase [ Enzymatic activity/volume] in Serum or PlasmaOrdered By: Elizabeth Alvarado on 05-07-2022 AST [Catalytic activity/Vol] 56 U/L 10-42 [facility] Basophils Auto (Bld) [#/Vol] Ordered By: Elizabeth Alvarado on 05-07-2022 Basophils (Bld) [#/Vol] 0.1 10*3/uL 0.0-0.2 [facility] Basophils/100 WBC Auto (Bld) Ordered By: Elizabeth Alvarado on 05-07-2022 Basophils/100 WBC (Bld) 0.7 % . F [facility] Bilirubin.total [Mass/volume ] in Serum or PlasmaOrdered By: Elizabeth Alvarado on 05-07-2022 Bilirubin [Mass/Vol] 0.6 mg/dL 0.3-1.2 [facility] Calcium [Mass/volume] in Ser um or PlasmaOrdered By: Elizabeth Alvarado on 05-07-2022 Calcium [Mass/Vol] 9.1 mg/dL 8.2-10.2 [facility] Carbon dioxide, total [Moles /volume] in Serum or PlasmaOrdered By: Elizabeth Alvarado on 05-07-2022 CO2 [Moles/Vol] 28.1 mmol/L 22.0-30.0 [facility] Chloride [Moles/volume] in S hugo or PlasmaOrdered By: Elizabeth Alvarado on 01-13-2023 Chloride [Moles/Vol] 100 mmol/L 95-114 [facility] Cholesterol [Mass/volume] in Serum or PlasmaOrdered By: Elizabeth Alvarado on 05-07-2022 Cholesterol [Mass/Vol] 181 mg/dL 140-200 [facility] Comment on above: Chol less than 200 m g/dl low riskChol 201-239 mg/dl borderline riskChol 240 mg/dl and greater high risk Cholesterol in LDL Calc [Mas s/Vol]Ordered By: Elizabeth Alvarado on 05-07-2022 Cholesterol in LDL [Mass/Vol] 102 mg/dL 0-100 [facility] Comment on above: LDL ATP III CLASSIFI CATIONLDL less than 100 mg/dL OptimalLDL 100-129 mg/dL Near or above optimalLDL 130-159 mg/dL Borderline highLDL 160-189 mg/dL HighLDL greater than 189 mg/dL Very high Cholesterol in VLDL Calc [Ma ss/Vol]Ordered By: Elizabeth Alvarado on 05-07-2022 Cholesterol in VLDL [Mass/Vol] 20 mg/dL [facility] Creatinine and Glomerular fi ltration rate.predicted panel (S/P/Bld)Ordered By: Elizabeth Alvarado on 05-07-2022 Creatinine [Mass/Vol] 0.65 mg/dL 0.44-1.03 [facility] Eosinophils Auto (Bld) [#/Vo l]Ordered By: Elizabeth Alvarado on 05-07-2022 Eosinophils (Bld) [#/Vol] 0.1 10*3/uL 0.0-0.45 [facility] Eosinophils/100 WBC Auto (Bl d)Ordered By: Elizabeth Alvarado on 05-07-2022 Eosinophils/100 WBC (Bld) 1.8 % . [facility] Erythrocyte distribution wid th Auto (RBC) [Ratio]Ordered By: Elizabeth Alvarado on 05-07-2022 Erythrocyte distribution width (RBC) [Ratio] 17.8 % 11.9-15.3 [facility] Estimated glomerular filtrat ion rate (GFR) non- AmericanOrdered By: Elizabeth Alvarado on 05-07-2022 GFR/1.73 sq M.predicted among non-blacks MDRD (S/P/Bld) [Vol rate/Area] > 60 mL/Min [facility] Globulin Calc (S) [Mass/Vol] Ordered By: Elizabeth Alvarado on 05-07-2022 Globulin (S) [Mass/Vol] 3.7 g/dL [facility] Glucose [Mass/volume] in Ser um or PlasmaOrdered By: Elizabeth Alvarado on 05-07-2022 Glucose [Mass/Vol] 137 mg/dL 70-100 [facility] Comment on above: ADA recommended refe rence rangeRandom Glucose Reference Range is dependent on time and content of last meal. Glucose of more than 200 mg/dL in a nonstressed, ambulatory subject supports the diagnosis of Diabetes Mellitus. Hematocrit Auto (Bld) [Volum e fraction]Ordered By: Elizabeth Alvarado on 05-07-2022 Hematocrit (Bld) [Volume fraction] 45.4 % 34.0-46.4 [facility] Hemoglobin [Mass/volume] in BloodOrdered By: Elizabeth Alvarado on 05-07-2022 Hemoglobin (Bld) [Mass/Vol] 14.1 g/dL 11.8-15.4 [facility] Leukocytes [#/volume] correc silverio for nucleated erythrocytes in Blood by Automated counOrdered By: Elizabeth Alvarado on 05-07-2022 WBC corrected for nucl RBC Auto (Bld) [#/Vol] 7.9 10*3/uL 3.8-11.6 [facility] Lymphocytes Auto (Bld) [#/Vo l]Ordered By: Elizabeth Alvarado on 05-07-2022 Lymphocytes (Bld) [#/Vol] 2.4 10*3/uL 1.00-4.8 [facility] Lymphocytes/100 WBC Auto (Bl d)Ordered By: Elizabeth Alvarado on 05-07-2022 Lymphocytes/100 WBC (Bld) 30.9 % . [facility] MCH Auto (RBC) [Entitic mass ]Ordered By: Elizabeth Alvarado on 05-07-2022 MCH (RBC) [Entitic mass] 24.6 pg 24.7-34.3 [facility] MCHC Auto (RBC) [Mass/Vol]Or dered By: Elizabeth Alvarado on 05-07-2022 MCHC (RBC) [Mass/Vol] 31.0 g/dL 32.0-35.0 [facility] MCV Auto (RBC) [Entitic vol] Ordered By: Elizabeth Alvarado on 05-07-2022 MCV (RBC) [Entitic vol] 79.4 fL 80-100 [facility] Monocytes Auto (Bld) [#/Vol] Ordered By: Elizabeth Alvarado on 05-07-2022 Monocytes (Bld) [#/Vol] 0.7 10*3/uL 0.0-0.8 [facility] Monocytes/100 WBC Auto (Bld) Ordered By: Elizabeth Alvarado on 05-07-2022 Monocytes/100 WBC (Bld) 9.3 % . [facility] Neutrophils Auto (Bld) [#/Vo l]Ordered By: Elizabeth Alvarado on 05-07-2022 Neutrophils (Bld) [#/Vol] 4.5 10*3/uL 1.8-7.7 [facility] Neutrophils/100 WBC Auto (Bl d)Ordered By: Elizabeth Alvarado on 05-07-2022 Neutrophils/100 WBC (Bld) 57.3 % . [facility] No Panel InformationOrdered By: Elizabeth Alvarado on 05-07-2022 Estimated GFR () > 60 mL/Min [facility] Comment on above: GFR estimated refere nce range: According to KDOQI guidelines, <60 ml/min/1.73m2 is sufficient to diagnose a patient with chronic kidney disease. Pharmacy Creatinine Clearance (Chem N/A [facility] Nucleated erythrocytes [Pres ence] in Blood by Automated countOrdered By: Elizabeth Alvarado on 05-07-2022 Nucleated RBC Auto Ql (Bld) 0.1 /100{WBC} 0-0.5 [facility] Platelet mean volume Auto (B ld) [Entitic vol]Ordered By: Elizabeth Alvarado on 05-07-2022 Platelet mean volume (Bld) [Entitic vol] 9.4 fL 6.3-10.7 [facility] Platelets Auto (Bld) [#/Vol] Ordered By: Elizabeth Alvarado on 05-07-2022 Platelets (Bld) [#/Vol] 242 10*3/uL 150-450 [facility] Potassium [Moles/volume] in Serum or PlasmaOrdered By: Elizabeth Alvarado on 05-07-2022 Potassium [Moles/Vol] 4.3 mmol/L 3.5-5.1 [facility] Protein [Mass/volume] in Ser um or PlasmaOrdered By: Elizabeth Alvarado on 05-07-2022 Protein [Mass/Vol] 7.6 g/dL 6.1-7.9 [facility] RBC Auto (Bld) [#/Vol]Ordere d By: Elizabeth Alvarado on 05-07-2022 RBC (Bld) [#/Vol] 5.72 10*6/uL 3.60-5.00 [facility] Serum or plasma alanine ulloa otransferase measurement without P-5'-P (enzymatic activiOrdered By: Elizabeth Alvarado on 05-07-2022 ALT No additional P-5'-P [Catalytic activity/Vol] 61 U/L 10-60 [facility] Serum or plasma albumin/glob ulin mass ratioOrdered By: Elizabeth Alvarado on 05-07-2022 Albumin/Globulin [Mass ratio] 1.1 {ratio} [facility] Serum or plasma anion gap de terminationOrdered By: Elizabeth Alvarado on 05-07-2022 Anion gap [Moles/Vol] 11.2 mmol/L 6.0-15.0 [facility] Serum or plasma high density lipoprotein (HDL) cholesterol measurementOrdered By: Elizabeth Alvarado on 05-07-2022 Cholesterol in HDL [Mass/Vol] 58 mg/dL 35-85 [facility] Comment on above: HDL CHOL ATP-III CLA SSIFICATION Cardiovascular RiskHDL > or equal to 60 mg/dL LOWHDL < 40 mg/dL HIGH Serum or plasma total choles terol/high density lipoprotein (HDL) cholesterol mass ratOrdered By: Elizabeth Alvarado on 05-07-2022 Cholesterol.total/Choles terol in HDL [Mass ratio] 3.1 {ratio} <5.0 [facility] Sodium [Moles/volume] in Ser um or PlasmaOrdered By: Elizabeth Alvarado on 05-07-2022 Sodium [Moles/Vol] 135 mmol/L 136-146 [facility] TSH DL <= 0.005 mIU/L QnOrde red By: Elizabeth Alvarado on 05-07-2022 TSH Qn 4.21 m[IU]/L 0.45-5.33 [facility] Triglyceride [Mass/volume] i n Serum or PlasmaOrdered By: Elizabeth Alvarado on 05-07-2022 Triglyceride [Mass/Vol] 103 mg/dL 35-149 [facility] Comment on above: TRIG ATP III CLASSIF ICATIONTRIG less than 150 mg/dL NormalTRIG 150-199 mg/dL Borderline highTRIG 200-500 mg/dL High TRIG greater than 500 mg/dL Very highStandard traceable to the Center for Disease Conrtrol and Prevention (CDC) test method. Urea nitrogen [Mass/volume] in Serum or PlasmaOrdered By: Elizabeth Alvarado on 05-07-2022 Urea nitrogen [Mass/Vol] 14 mg/dL 9-23 [facility] WBC Auto (Bld) [#/Vol]Ordere d By: Elizabeth Alvarado on 05-07-2022 WBC (Bld) [#/Vol] 7.9 10*3/uL 3.8-11.6 [facility] Basophils Auto (Bld) [#/Vol] Ordered By: Tyler Villeda on 04-13-2022 Basophils (Bld) [#/Vol] 0.1 10*3/uL 0.0-0.2 [facility] Basophils/100 WBC Auto (Bld) Ordered By: Tyler Villeda on 04-13-2022 Basophils/100 WBC (Bld) 0.6 % . [facility] C reactive protein [Mass/vol ume] in Serum or PlasmaOrdered By: Tyler Villeda on 04-13-2022 CRP [Mass/Vol] 2.1 mg/dL 0.0-1.0 [facility] Eosinophils Auto (Bld) [#/Vo l]Ordered By: Tyler Villeda on 04-13-2022 Eosinophils (Bld) [#/Vol] 0.2 10*3/uL 0.0-0.45 [facility] Eosinophils/100 WBC Auto (Bl d)Ordered By: Tyler Villeda on 04-13-2022 Eosinophils/100 WBC (Bld) 2.0 % . [facility] Erythrocyte distribution wid th Auto (RBC) [Ratio]Ordered By: Tyler Villeda on 04-13-2022 Erythrocyte distribution width (RBC) [Ratio] 17.6 % 11.9-15.3 [facility] Erythrocyte sedimentation ra te by Photometric methodOrdered By: Tyler Villeda on 04-13-2022 ESR Photometric method (d) [Velocity] 54 mm/hr 0-29 [facility] Hematocrit Auto (Bld) [Volum e fraction]Ordered By: Tyler Villeda on 04-13-2022 Hematocrit (Bld) [Volume fraction] 44.4 % 34.0-46.4 [facility] Hemoglobin [Mass/volume] in BloodOrdered By: Tyler Villeda on 04-13-2022 Hemoglobin (Bld) [Mass/Vol] 14.3 g/dL 11.8-15.4 [facility] Leukocytes [#/volume] correc silverio for nucleated erythrocytes in Blood by Automated counOrdered By: Tyler Villeda on 04-13-2022 WBC corrected for nucl RBC Auto (Bld) [#/Vol] 8.6 10*3/uL 3.8-11.6 [facility] Lymphocytes Auto (Bld) [#/Vo l]Ordered By: Tyler Villeda on 04-13-2022 Lymphocytes (Bld) [#/Vol] 2.9 10*3/uL 1.00-4.8 [facility] Lymphocytes/100 WBC Auto (Bl d)Ordered By: Tyler Villeda on 04-13-2022 Lymphocytes/100 WBC (Bld) 33.6 % . [facility] MCH Auto (RBC) [Entitic mass ]Ordered By: Tyler Villeda on 04-13-2022 MCH (RBC) [Entitic mass] 24.9 pg 24.7-34.3 [facility] MCHC Auto (RBC) [Mass/Vol]Or dered By: Tyler Villeda on 04-13-2022 MCHC (RBC) [Mass/Vol] 32.2 g/dL 32.0-35.0 [facility] MCV Auto (RBC) [Entitic vol] Ordered By: Tyler Villeda on 04-13-2022 MCV (RBC) [Entitic vol] 77.4 fL 80-100 [facility] Monocytes Auto (Bld) [#/Vol] Ordered By: Tyler Villeda on 04-13-2022 Monocytes (Bld) [#/Vol] 0.9 10*3/uL 0.0-0.8 [facility] Monocytes/100 WBC Auto (Bld) Ordered By: Tyler Villeda on 04-13-2022 Monocytes/100 WBC (Bld) 10.0 % . [facility] Neutrophils Auto (Bld) [#/Vo l]Ordered By: Tyler Villeda on 04-13-2022 Neutrophils (Bld) [#/Vol] 4.6 10*3/uL 1.8-7.7 [facility] Neutrophils/100 WBC Auto (Bl d)Ordered By: Tyler Villeda on 04-13-2022 Neutrophils/100 WBC (Bld) 53.8 % . [facility] Nucleated erythrocytes [Pres ence] in Blood by Automated countOrdered By: Tyler Villeda on 04-13-2022 Nucleated RBC Auto Ql (Bld) 0.1 /100{WBC} 0-0.5 [facility] Platelet mean volume Auto (B ld) [Entitic vol]Ordered By: Tyler Villeda on 04-13-2022 Platelet mean volume (Bld) [Entitic vol] 9.1 fL 6.3-10.7 [facility] Platelets Auto (Bld) [#/Vol] Ordered By: Tyler Villeda on 04-13-2022 Platelets (Bld) [#/Vol] 296 10*3/uL 150-450 [facility] RBC Auto (Bld) [#/Vol]Ordere d By: Tyler Villeda on 04-13-2022 RBC (Bld) [#/Vol] 5.73 10*6/uL 3.60-5.00 [facility] WBC Auto (Bld) [#/Vol]Ordere d By: Tyler Villeda on 04-13-2022 WBC (Bld) [#/Vol] 8.6 10*3/uL 3.8-11.6 [facility] Serum or plasma follitropin measurement (units/volume)Ordered By: Elizabeth Alvarado on 12-03-2021 Follitropin Qn 18.3 m[IU]/mL [facility] Comment on above: FEMALE NORMALS (JUDIE ENOPAUSE) MID-FOLLICULAR PHASE: 3.9-8.8 mIU/mL MID-CYCLE PEAK: 4.5-22.5 mIU/mL MID-LUTEAL PHASE: 1.8-5.1 mIU/mL FEMALE NORMALS (POSTMENOPAUSE): 16.7-113.6 mIU/mL MALE NORMALS: 1.3-19.3 mIU/mL TSH DL <= 0.005 mIU/L QnOrde red By: Elizabeth Alvarado on 12-03-2021 TSH Qn 4.23 m[IU]/L 0.45-5.33 [facility] Total estrogen measurementOr dered By: Elizabeth Alvarado on 12-03-2021 Estrogen [Mass/Vol] 83 pg/mL . [facility] Comment on above: Prepubertal < 40 Female Cycle: 1-10 Days 16 - 328 11-20 Days 34 - 501 21-30 Days 48 - 350 Post-Menopausal 40 - 244 Performed at: - [facility] [id number] Laundry Assistant: Virgie Isaac MD, Phone: [phone] Coding Summary.on 01-26-2019 Coding Summary. CODING DATE: [address] [facility] STATUS: Home (Routine DC) PAYOR: Medicare APC DESCRIPTION 5113 Level 3 Musculoskeletal Procedures ADMIT DX: REASON FOR VISIT DX: M76.61 Achilles tendinitis, right leg FINAL DX: PRINCIPAL: M76.61 Achilles tendinitis, right leg SECONDARY: M24.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, right ankle I10 Essential (primary) hypertension J45.909 Unspecified asthma, uncomplicated K21.9 Gastro-esophageal reflux disease without esophagitis Z79.899 Other senior care (current) drug therapy PYMT PROC APC STAT DESCRIPTION DOCTOR NAME DATE 5112 J1 Tenotomy, percutaneous, Thuan Travis DPM 01/24/2019 Achilles tendon (separate procedure); general anesthesia RT Right side (used to identify procedures performed on the right side of the body) 13266 Anesthesia for Shahab Almanzar Jr., DO 01/24/2019 [...] Saved: 01/26/2019 11:32 am Normal [facility] Inpatient Patient Summaryon 01-24-2019 Inpatient Patient Summary [facility] Clinical Discharge Instructions PERSON INFORMATION Name: GEETA SHELTON PHYSICIANS Admitting Physician: Thuan Travis DPM Attending Physician: Thuan Travis DPM PCP: Nichole Caballero Discharge Diagnosis: Comment: PATIENT EDUCATION INFORMATION Instructions: Post Op Patient Instructions - FT (Custom); Foot Cryocuff Patient Instructions - FT (Custom); Thaddeus - Post Operative Instructions (Revised 12/20/13) (Custom) ([id number]) Medication Leaflets: Follow up: MEDICATION LIST Comment: Normal [facility] Lyteson 01-24-2019 Anion gap [Moles/Vol] 14 mmol/L Normal 6-16 [facility] Comment on above: Performed By: #### 2 512376, 3885106, 1876994, 43854838, 5964583, 0630204 #### [facility] Laboratory [address] [place] [address] Chloride [Moles/Vol] 107 mmol/L Normal 101-111 [facility] Comment on above: Performed By: #### 2 425642, 9549572, 2579542, 78178709, 5841511, 2912525 #### [facility] Laboratory [address] [place] [address] CO2 [Moles/Vol] 23 mmol/L Normal 21-31 [facility] Comment on above: Performed By: #### 2 365378, 6608233, 0289589, 51022864, 5193276, 2019594 #### [facility] Laboratory [address] [place] [address] Potassium [Moles/Vol] 4.9 mmol/L Normal 3.5-5.3 [facility] Comment on above: Performed By: #### 2 747992, 1370318, 4426322, 58869207, 8083340, 0179886 #### [facility] Laboratory [address] [place] [address] Sodium [Moles/Vol] 139 mmol/L Normal 135-145 [facility] Comment on above: Performed By: #### 2 169101, 6988122, 0229400, 18952140, 1860844, 6137390 #### [facility] Laboratory [address] [place] [address] Main OR Intraoperative Recor don 01-24-2019 Main OR Intraoperative Record IntraOp Document Type FT Summary Primary Physician: Thuan Travis DPM Finalized Date/Time: 01/24/19 11:33:24 Pt. Name: GEETA SHELTON/Sex: 1970 Female Med Rec #: [id number] Physician: Thuan Travis DPM Financial #: [id number] Pt. Type: A Room/Bed: Admit/Disch: 01/24/19 07:58:48 [...] Cheryl Role Performed Anesthesiologist Surgeon - Primary DIRECTOR AIRPORT Edge [place]onder Time In 01/24/19 08:48:00 01/24/19 09:00:00 01/24/19 [...] Zuly Duarte CST, Prashant Panda Role Performed Mink Rancher - Primary Mink Rancher - Other Scrub - Primary Time In [...] Coy RN, Alpa Sheikh RN, Gerald Veliz MEDICAL BILLING SUPERVISOR, Prashant M Time Out Complete 01/24/19 08:59:00 [...] AGUILAR, CNOR, Alpa AGUILAR, Zuly Luna, Gerald MEDICAL BILLING SUPERVISOR, R, Gerald QUIROZ, Prashant Panda Outcomes Met? [...] to transfer/transport General Comments: REPORT GIVEN TO NIB ADJUSTERRN. Cy PRIDE RN Dressing/Packing FT Pre-Care Text: [...] safely administered during the perioperative period For [facility] please see scanned medication reconcilliation form for medications used at the field during the procedure. Temperature Control Entry 1 Temperature Control BLANKET MISTRAL AIR Quantity 1 Aid TORSO [[id number]][F] Fluid/[place] [facility] Mistral warming system Setting HIGH/43 Body Site Upper anterior torso Last Modified By: Kallie Gunter RN 01/24/19 08:46:43 Case Comments Finalized By: Maye Silverio CST Document Signatures Signed By: Kallie Gunter RN 01/24/19 09:26 Maye Silverio CST 01/24/19 11:33 Normal [facility] Main OR PACU I Recordon Main OR PACU I Record PACU Phase I Docum ent Type FT Summary Primary Physician: Thuan Travis DPM Finalized Date/Time: 01/24/19 10:08:45 Pt. Name: GEETA SHELTON/Sex: 1970 Female Med Rec #: [id number] Physician: Thuan Travis DPM Financial #: [id number] Pt. Type: A Room/Bed: Admit/Disch: 01/24/19 07:58:48 [...] Carr RN 01/24/19 10:08 Normal [facility] Main OR PACU II Recordon Main OR PACU II Record PACU Phase II Doc ument Type FT Summary Primary Physician: Thuan Travis DPM Finalized Date/Time: 01/24/19 13:09:21 Pt. Name: ROCIO SHELTONCHRISTINA Zaman/Sex: 1970 Female Med Rec #: [id number] Physician: Thuan Travis DPM Financial #: [id number] Pt. Type: A [facility] Admit/Disch: 01/24/19 07:58:48 - Institution: Case [...] Putnam LPN 01/24/19 13:09 Normal [facility] Main OR Preoperative Recordo n 01-24-2019 Main OR Preoperative Record PreOp Document Type FT Summary Primary Physician: Thuan Travis DPM Finalized Date/Time: 01/24/19 09:12:07 Pt. Name: GEETA SHELTON/Sex: 1970 Female Med Rec #: [id number] Physician: Thuan Travis DPM Financial #: [id number] Pt. Type: A Room/Bed: [facility] Admit/Disch: 01/24/19 07:58:48 - Institution: Case [...] Gunter RN 01/24/19 09:12 Normal [facility] Operative Reporton 10--201 9 Operative Report Date [...] visit. Thuan Travis D.P.M. aek Dictated: 01/24/2019 #[id number] Typed: 01/24/2019 #[id number] cc: Thuan Travis D.P.M. [facility] Comment on above: Result Comment: Elec tronically Signed By: Thuan Travis DPM\.br\Date and Time Signed: 01/24/19 10:24 EDT Patient Education - Texton 1 Patient Education - Text (Inserted Image . Unable to display) [place], [place] Thuan Travis DPM, FACFAS POST OPERATIVE [...] feel free to call the doctor at: [phone] or [phone] Travis paged. ___ Patient signature Date ___ Dr. Anand Sauer DPM, FACFAS Date Revised: 06-02 [facility] Progress Note-Physicianon Progress Note-Physician Patient: GEETA SHELTON [...] 1 ml. Complications: None. Anesthesia type: General. [facility] Comment on above: Result Comment: Elec tronically Signed By: Thuan Travis DPM\.br\Date and Time Signed: 01/24/19 09:27 EDT Coding Summary.on 01-12-2019 Coding Summary. CODING DATE: [address] [facility] STATUS: Home (Routine DC) PAYOR: [...] CphT Date Saved: 01/12/2019 11:10 am Normal [facility] BUNon 01-11-2019 Urea nitrogen [Mass/Vol] 29 mg/dL High 5-21 [facility] Comment on above: Performed By: #### 2 748823, 9154025, 9762402, 18079650, 7702200, 3396169 #### [facility] Laboratory [address] [place] [address] CBC w/Indiceson 01-11-2019 Erythrocyte distribution width (RBC) [Ratio] 16.1 % High 10.9-14.2 [facility] Comment on above: Performed By: #### 1 3298374, 3734855, 1583716, 0039857, 6118479 #### [facility] Laboratory [address] [place] [address] Hematocrit (Bld) [Volume fraction] 42.1 % Normal 34.0-46.0 [facility] Comment on above: Performed By: #### 1 8319203, 4500846, 4793388, 9409761, 3425816 #### [facility] Laboratory [address] [place] [address] Hemoglobin (Bld) [Mass/Vol] 13.8 g/dL Normal 12.0-16.0 [facility] Comment on above: Performed By: #### 1 3816966, 8824926, 6768794, 7201127, 1767725 #### [facility] Laboratory [address] [place] [address] MCH (RBC) [Entitic mass] 25.8 pg Low 27.0-34.0 [facility] Comment on above: Performed By: #### 1 1824750, 7271877, 4018119, 4508930, 7928538 #### [facility] Laboratory [address] [place] [address] MCHC (RBC) [Mass/Vol] 32.8 g/dL Low 33.3-35.7 [facility] Comment on above: Performed By: #### 1 4279458, 7155352, 1536243, 8905843, 2688390 #### [facility] Laboratory [address] [place] [address] MCV (RBC) [Entitic vol] 78.5 fL Low 80.0-100.0 F [facility] Comment on above: Performed By: #### 1 4407580, 3213561, 0284133, 4427519, 2110676 #### [facility] Laboratory [address] [place] [address] Platelet mean volume (Bld) [Entitic vol] 9.9 fL Normal 6.4-10.8 [facility] Comment on above: Performed By: #### 1 9517808, 8421657, 8773238, 7907716, 2832619 #### [facility] Laboratory [address] [place] [address] Platelets (Bld) [#/Vol] 283.0 E9/L Normal 150. 0-500. 0 [facility] Comment on above: Performed By: #### 1 1270570, 5701994, 3847213, 8302207, 1336033 #### [facility] Laboratory [address] [place] [address] RBC (Bld) [#/Vol] 5.4 E12/L Normal 4.3-5.9 [facility] Comment on above: Performed By: #### 1 6988037, 8908201, 4947155, 6553238, 3976849 #### [facility] Laboratory [address] [place] [address] WBC corrected for nucl RBC Auto (Bld) [#/Vol] 8.6 E9/L Normal 4.0-11.0 [facility] Comment on above: Performed By: #### 1 2589185, 3767607, 4787174, 1636426, 2118900 #### [facility] Laboratory [address] [place] [address] Creatinineon 01-11-2019 Creatinine [Mass/Vol] 1.0 mg/dL Normal 0.5-1.3 [facility] Comment on above: Performed By: #### 2 651097, 8088695, 1365487, 74616157, 6786314, 1304014 #### [facility] Laboratory [address] [place] [address] Glucoseon 01-11-2019 Glucose [Mass/Vol] 95 mg/dL Normal 55-199 [facility] Comment on above: Performed By: #### 1 8897278, 1813433, 1424738, 5903555, 9166283 #### [facility] Laboratory [address] [place] [address] eGFRon 01-11-2019 GFR/1.73 sq M predicted among blacks MDRD (S/P/Bld) [Vol rate/Area] mL/min/{1.73_m2} Normal >=59 [facility] Comment on above: Order Comment: Order added by Discern Expert. Result Comment: eGFR is race adjusted. AA=. Performed By: #### 2 262378, 0920819, 8690537, 78779514, 3110781, 6856614 #### [facility] Laboratory [address] [place] [address] GFR/1.73 sq M predicted among non-blacks MDRD (S/P/Bld) [Vol rate/Area] 59 mL/min/1.73 m2 Normal >=59 [facility] Comment on above: Order Comment: Order added by Discern Expert. Result Comment: Compo Conveyor Operator stefanie kidney disease could be indicated at eGFR's of less than 60 mL/min/1.73m2. Kidney failure is indicated at less than 15 mL/min/1.73m2. Performed By: #### 2 520344, 7954109, 1247079, 32076944, 8889146, 1076662 #### [facility] Laboratory [address] [place] [address] Coding Summary.on 12-15-2018 Coding Summary. CODING DATE: [address] [facility] STATUS: Home (Routine DC) PAYOR: [...] Saved: 12/15/2018 01:36 pm Normal [facility] BUNon 12-14-2018 Urea nitrogen [Mass/Vol] 19 mg/dL Normal 5-21 [facility] Comment on above: Performed By: #### 2 259338, 0368432, 3039139, 19007711, 1421420, 3292030 #### [facility] Laboratory [address] [place] [address] CBC w/Indiceson 12-14-2018 Erythrocyte distribution width (RBC) [Ratio] 17.1 % High 10.9-14.2 [facility] Comment on above: Performed By: #### 2 232732, 4867181, 8909108, 15337224, 1062429, 4882792 #### [facility] Laboratory [address] [place] [address] Hematocrit (Bld) [Volume fraction] 41.5 % Normal 34.0-46.0 [facility] Comment on above: Performed By: #### 2 605598, 7063209, 3782877, 25154492, 5955674, 8035823 #### [facility] Laboratory [address] [place] [address] Hemoglobin (Bld) [Mass/Vol] 13.2 g/dL Normal 12.0-16.0 [facility] Comment on above: Performed By: #### 2 200165, 7704561, 4700191, 72305348, 8173132, 8427468 #### [facility] Laboratory [address] [place] [address] MCH (RBC) [Entitic mass] 25.0 pg Low 27.0-34.0 [facility] Comment on above: Performed By: #### 2 954101, 2858468, 1101582, 45155771, 0967684, 4948670 #### [facility] Laboratory [address] [place], [place] [address] MCHC (RBC) [Mass/Vol] 31.7 g/dL Low 33.3-35.7 [facility] Comment on above: Performed By: #### 2 760951, 7689841, 5705340, 79654820, 4997833, 4967977 #### [facility] Laboratory [address] [place], [place] [address] MCV (RBC) [Entitic vol] 78.7 fL Low 80.0-100.0 F [facility] Comment on above: Performed By: #### 2 265083, 0859706, 6558156, 54320483, 0334599, 7978380 #### [facility] Laboratory [address] [place] [address] Platelet mean volume (Bld) [Entitic vol] 9.4 fL Normal 6.4-10.8 [facility] Comment on above: Performed By: #### 2 077316, 5187745, 3944269, 70302226, 2971215, 0613198 #### [facility] Laboratory [address] [place], [place] [address] Platelets (Bld) [#/Vol] 268.0 E9/L Normal 150. 0-500. 0 [facility] Comment on above: Performed By: #### 2 324461, 5547543, 3890144, 32652601, 1874359, 3043851 #### [facility] Laboratory [address] [place] [address] RBC (Bld) [#/Vol] 5.3 E12/L Normal 4.3-5.9 [facility] Comment on above: Performed By: #### 2 852600, 4428386, 8704922, 03393549, 8440181, 0725605 #### [facility] Laboratory [address] [place] [address] WBC corrected for nucl RBC Auto (Bld) [#/Vol] 10.6 E9/L Normal 4.0-11.0 [facility] Comment on above: Performed By: #### 2 506172, 6996702, 9936541, 75083092, 3422426, 1827422 #### [facility] Laboratory [address] [place] [address] Creatinineon 12-14-2018 Creatinine [Mass/Vol] 0.7 mg/dL Normal 0.5-1.3 [facility] Comment on above: Performed By: #### 2 589796, 3432286, 7129005, 32435446, 0950793, 4014725 #### [facility] Laboratory [address] [place] [address] Glucoseon 12-14-2018 Glucose [Mass/Vol] 138 mg/dL Normal 55-199 [facility] Comment on above: Performed By: #### 2 896698, 4871373, 4991911, 80903576, 4121586, 6865489 #### [facility] Laboratory [address] [place] [address] Lyteson 12-14-2018 Anion gap [Moles/Vol] 17 mmol/L High 6-16 [facility] Comment on above: Performed By: #### 2 080323, 1037804, 0249126, 67550305, 2423938, 3229291 #### [facility] Laboratory [address] [place] [address] Chloride [Moles/Vol] 95 mmol/L Low 101-111 [facility] Comment on above: Performed By: #### 2 030305, 8649377, 7404179, 80020028, 6976746, 0139031 #### [facility] Laboratory [address] [place] [address] CO2 [Moles/Vol] 26 mmol/L Normal 21-31 [facility] Comment on above: Performed By: #### 2 962851, 2260418, 7132906, 83617849, 3670110, 1342907 #### [facility] Laboratory [address] [place] [address] Potassium [Moles/Vol] 3.9 mmol/L Normal 3.5-5.3 [facility] Comment on above: Performed By: #### 2 087566, 2603907, 6080799, 73739310, 8834494, 5888349 #### [facility] Laboratory [address] [place] [address] Sodium [Moles/Vol] 134 mmol/L Low 135-145 [facility] Comment on above: Performed By: #### 2 704333, 7235627, 7678741, 49612562, 8558686, 3906584 #### [facility] Laboratory [address] [place] [address] XR Chest 2 Viewson 9 XR Chest [...] MD Transcribed by: MAGEN Technologist: KRISTYN Normal [facility] eGFRon 12-14-2018 GFR/1.73 sq M predicted among blacks MDRD (S/P/Bld) [Vol rate/Area] mL/min/{1.73_m2} Normal >=59 [facility] Comment on above: Order Comment: Order added by Discern Expert. Result Comment: eGFR is race adjusted. AA=. Performed By: #### 2 786652, 8085131, 0006481, 18952392, 7721027, 3404699 #### [facility] Laboratory [address] [place] [address] GFR/1.73 sq M predicted among non-blacks MDRD (S/P/Bld) [Vol rate/Area] mL/min/{1.73_m2} Normal >=59 [facility] Comment on above: Order Comment: Order added by Discern Expert. Result Comment: Compo Conveyor Operator stefanie kidney disease could be indicated at eGFR's of less than 60 mL/min/1.73m2. Kidney failure is indicated at less than 15 mL/min/1.73m2. Performed By: #### 2 268855, 3030513, 8944541, 49963671, 7846656, 7517907 #### [facility] Laboratory [address] [place] [address] Vital Signs Date Time Vital Sign Value Performing Clinician Facility 09-30-2023 09:36-0400 Body height 165.1 cm PHYSICIAN NO [facility] 09-30-2023 09:36-0400 Body mass index (BMI) [Ratio] 46.2 kg/m2 PHYSICIAN NO [facility] 09-30-2023 09:36-0400 Body temperature 97.6 [degF] PHYSICIAN NO [facility] 09-30-2023 09:36-0400 Body weight 126.09 kg PHYSICIAN NO [facility] 09-30-2023 09:36-0400 Diastolic blood pressure 85 mm[Hg] PHYSICIAN NO [facility] 09-30-2023 09:36-0400 Heart rate 87 /min PHYSICIAN NO [facility] 09-30-2023 09:36-0400 Respiratory rate 20 /min PHYSICIAN NO [facility] 09-30-2023 09:36-0400 SaO2% (BldA) [Mass fraction] 98 % PHYSICIAN NO [facility] 09-30-2023 09:36-0400 Systolic blood pressure 139 mm[Hg] PHYSICIAN NO [facility] 03-02-2023 10:45-0500 Body height 165.1 cm Tyler Jean Other [employer] Other 03-02-2023 10:45-0500 Body mass index (BMI) [Ratio] 44.76 kg/m2 Tyler Ted Other [facility] Other 03-02-2023 10:45-0500 Body temperature 96.7 [degF] Tyler Ted Other [employer] Other 03-02-2023 10:45-0500 Body weight 122.02 kg Tyler Ted Other [employer] Other 03-02-2023 10:45-0500 Diastolic blood pressure 82 mm[Hg] Tylernirav Jean Other [employer] Other 03-02-2023 10:45-0500 Respiratory rate 18 /min Tyler Jean Other [employer] Other 03-02-2023 10:45-0500 SaO2% (BldA) [Mass fraction] 96 % Tyler Ted Other [employer] Other 03-02-2023 10:45-0500 Systolic blood pressure 136 mm[Hg] Tyler Jean Other [employer] Other 09-21-2022 09:11-0400 Body weight 128.72 kg REVERSE UNIT OPERATOR FISHERMANNohelia Alvarado Work Phone: [facility] 09-21-2022 09:11-0400 Diastolic blood pressure 91 mm[Hg] REVERSE UNIT OPERATOR FISHERMAN Elizabeth Myerholtz Work Phone: [facility] 09-21-2022 09:11-0400 Heart rate 88 /min REVERSE UNIT OPERATOR FISHERMAN Elizabeth Myerholtz Work Phone: [facility] 09-21-2022 09:11-0400 Respiratory rate 20 /min REVERSE UNIT OPERATOR FISHERMAN Elizabeth Myerholtz Work Phone: [facility] 09-21-2022 09:11-0400 SaO2% (BldA) [Mass fraction] 96 % RHEA Alvarado Work Phone: [facility] 09-21-2022 09:11-0400 Systolic blood pressure 145 mm[Hg] RHEA Alvarado Work Phone: [facility] 08-16-2022 13:57-0400 Body temperature 98 [degF] RHEA Alvarado Work Phone: [facility] 08-16-2022 13:42-0400 Body height 165.1 cm RHEA Alvarado Work Phone: [facility] 07-03-2022 08:14-0500 Body temperature 97.9 [degF] Acosta Schafer MD Work Phone: [employer] 07-03-2022 08:14-0500 Diastolic blood pressure 70 mm[Hg] Acosta Schafer MD Work Phone: [employer] 07-03-2022 08:14-0500 Heart rate 83 /min Acosta Schafer MD Work Phone: [employer] 07-03-2022 08:14-0500 Respiratory rate 18 /min Acosta Schafer MD Work Phone: [employer] 07-03-2022 08:14-0500 SaO2% (BldA) [Mass fraction] 98 % Acosta Schafer MD Work Phone: [employer] 07-03-2022 08:14-0500 Systolic blood pressure 129 mm[Hg] Acosta Schafer MD Work Phone: [employer] 07-02-2022 09:45-0500 Body mass index (BMI) [Ratio] 50.66 kg/m2 Acosta Schafer MD Work Phone: [employer] 07-02-2022 09:45-0500 Body weight 129.73 kg Acosta Schafer MD [facility] [employer] 06-24-2022 11:20-0500 Body height 160 cm [facility] [employer] 06-24-2022 11:20-0500 Body mass index (BMI) [Ratio] 50.79 kg/m2 [facility] [employer] 06-24-2022 11:20-0500 Body temperature 97.9 [degF] [facility] [employer] 06-24-2022 11:20-0500 Body weight 130.05 kg [facility] [employer] 06-24-2022 11:20-0500 Diastolic blood pressure 87 mm[Hg] [facility] [employer] 06-24-2022 11:20-0500 Heart rate 73 /min [facility] [employer] 06-24-2022 11:20-0500 Respiratory rate 16 /min [facility] [employer] 06-24-2022 11:20-0500 SaO2% (BldA) [Mass fraction] 98 % Mloz Rn [facility] [facility] [employer] 06-24-2022 11:20-0500 Systolic blood pressure 142 mm[Hg] [facility]n [facility] [employer] 05-18-2022 08:46-0500 Body height 165.1 cm Acosta Schafer MD Work Phone: [facility] Work Phone: 05-18-2022 08:46-0500 Body mass index (BMI) [Ratio] 45.93 kg/m2 Acosta Schafer MD Work Phone: [facility] Work Phone: 05-18-2022 08:46-0500 Body surface area Derived from formula 2.27 m2 Acosta Schafer MD Work Phone: [facility] Work Phone: 05-18-2022 08:46-0500 Body weight 125.19 kg Acosta Schafer MD Work Phone: [facility] Work Phone: Encounters Encounter Date Encounter Type Care Provider Facility Start: 09-30-2023 End: 09-30-2023 ambulatory PHYSICIAN NO [facility] Work Phone: Start: 09-30-2023 End: 09-30-2023 Patient encounter procedure PHYSICIAN NO [facility] Ambulatory Work Phone: Start: 09-30-2023 Registered Recurring PHYSICIAN NO ABHIJIT APOLINAR [facility] Acute Work Phone: Start: 09-30-2023 ambulatory Lorrie Baig Facility: [facility] Start: 09-07-2023 End: 09-07-2023 Patient encounter procedure PHYSICIAN NO [facility] [place] Work Phone: Start: 09-07-2023 End: 09-07-2023 ambulatory Elizabeth Alvarado Facility:[facility] Start: 08-24-2023 End: 08-24-2023 Patient encounter procedure RHEA Alvarado Work Phone: [facility] Start: 08-24-2023 End: 08-24-2023 ambulatory Elizabeth Alvarado [facility] Work Phone: Start: 08-24-2023 End: 08-24-2023 Departed Referred REVERSE UNIT OPERATOR FISHERMAN Elizabeth Alvarado Work Phone: [facility] Start: 05-10-2023 End: 05-10-2023 Patient encounter procedure RHEA Alvarado Work Phone: [facility] Work Phone: Start: 05-10-2023 End: 05-10-2023 ambulatory RHEA Alvarado Work Phone: [facility] Work Phone: Start: 03-02-2023 End: 03-02-2023 ambulatory Tyler Jean Other [employer] Other Start: 03-02-2023 Office outpatient vi sit 25 minutes Tyler Ted [facility] Vascular Surgery Start: 02-14-2023 End: 02-14-2023 ambulatory REVERSE UNIT OPERATOR FISHERMAN Elizabeth Alvarado Work Phone: [facility] Work Phone: Start: 02-14-2023 End: 02-14-2023 Patient encounter procedure RHEA Alvarado Work Phone: [facility] Work Phone: Start: 01-26-2023 [facility] visit new patient Sindy rubio [facility] Vascular Surgery Start: 01-26-2023 End: 01-26-2023 ambulatory REVERSE UNIT OPERATOR FISHERMANNohelia Alvarado Work Phone: [employer] Other Start: 01-26-2023 End: 01-26-2023 Patient encounter procedure RHEA Alvarado Work Phone: [facility]XRay [facility] Work Phone: Start: 12-29-2022 Patient encounter procedure Acosta Schafer MD Work Phone: [facility] Work Phone: Start: 12-29-2022 ambulatory Provider Pending Facili ty:[id number] Start: 11-25-2022 End: 11-25-2022 Patient encounter procedure RHEA Alvarado Work Phone: [facility]-Respiratory Therapy Work Phone: Start: 09-22-2022 Patient encounter procedure Acosta Schafer MD Work Phone: [facility] Work Phone: Start: 09-22-2022 ambulatory Provider Pending Facili ty:[id number] Start: 09-21-2022 End: 09-21-2022 ambulatory RHEA Hurley Justinamichelebijupaula Work Phone: [facility] Work Phone: Start: 09-21-2022 End: 09-21-2022 Registered Recurring RHEA Johnson Justinamichelebijupaula Work Phone: [facility]Cancer [facility] Work Phone: Start: 08-11-[address] Acosta Schafer Facility:[id number] Start: 08-04-2022 End: 08-04-2022 Discharged Recurring RHEA Johnson Wilianpaula Work Phone: [facility]-Physical Therapy [facility] Start: 07-23-2022 End: 07-23-2022 ambulatory RHEA Hurley Justinamichelebijupaula Work Phone: [facility] Work Phone: Start: 07-23-2022 End: 07-23-2022 Patient encounter procedure RHEA Hornsinghpaula Work Phone: [facility]-Lab [facility] Work Phone: Start: 07-16-2022 Telephone encounter Acosta Crews MD Work Phone: [facility] Work Phone: Start: 07-14-2022 Patient encounter procedure Acosta Schafer MD Work Phone: [facility] Work Phone: Start: 07-14-[address] Acosta Schafer Facility:[id number] Start: 07-07-2022 AUDIT Acosta sow MD Work Phone: [facility] Work Phone: Start: 07-01-2022 ambulatory Provider Pending Facili ty:[id number] Start: 07-01-2022 End: 07-03-2022 Evaluation and management of inpatient ACOSTA Delaney [facility] Start: 07-01-2022 SURGNON, Provider: Acosta Schafer, Status: Pen, Time: 7:00 AM Natali Tyson PT, DPT 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 Merrill martinez [facility] Facility:[id number] Start: 06-25-2022 Encounter for other preprocedural examination Mr. Merrill Hernandez Alejandro II [facility] Start: 06-24-2022 End: 06-29-2022 ambulatory ACOSTA SCHAFER [facility] Start: 06-24-2022 End: 06-28-2022 Subsequent hospital visit by physician Juan Manzano Rm 2 Kip Burleson Pre-Admission Testing Start: 05-18-2022 Patient encounter procedure Acosta Schafer MD Work Phone: [facility] Work Phone: Start: 05-18-[address] Acosta Schafer Facility:[id number] Start: 05-07-2022 End: 05-07-2022 Patient encounter procedure RHEA Alvarado Work Phone: [facility]-Electrodiagnostics Work Phone: Start: 04-13-2022 End: 04-13-2022 ambulatory RHEA Alvarado Work Phone: [facility] Work Phone: Start: 04-13-2022 End: 04-13-2022 Patient encounter procedure RHEA Morinbijupaula Work Phone: [facility] Start: 12-17-2021 End: 12-17-2021 Patient encounter procedure RHEA Johnson Christiano Work Phone: [facility]-Nuc Med [facility] Start: 12-07-2021 End: 12-07-2021 Patient encounter procedure RHEA Johnson Wilianpaula Work Phone: [facility] Start: 12-03-2021 End: 12-03-2021 Departed Referred RHEA Johnson Christiano Work Phone: [facility] Procedures Date Procedure [...] TO MG FOR LOW K Arya Coronado REVERSE UNIT OPERATOR FISHERMAN - SUPERVISOR BENZENE REFINING Work Phone: Start: 07-03-2022 Blood count complete automated Arya Coronado REVERSE UNIT OPERATOR FISHERMAN - SUPERVISOR BENZENE REFINING Work Phone: Start: 07-02-2022 Dup-scan xtr veins unilateral/limited study Carlos A Hou DO Work Phone: Start: 07-02-2022 BASIC METABOLIC PANE L W/ REFLEX TO MG FOR LOW K Arya Coronado REVERSE UNIT OPERATOR FISHERMAN - SUPERVISOR BENZENE REFINING Work Phone: Start: 07-02-2022 Blood count complete automated Adjyoan Coronado REVERSE UNIT OPERATOR FISHERMAN - SUPERVISOR BENZENE REFINING Work Phone: Start: 07-01-2022 Radiologic examinati on knee 1/2 views Arya Coronado REVERSE UNIT OPERATOR FISHERMAN - SUPERVISOR BENZENE REFINING Work Phone: Start: 07-01-2022 End: 07-01-2022 Revj [...] Start: 12-17-2021 Radionuclide three-p hase bone study REVERSE UNIT OPERATOR FISHERMANNohelia Alvarado Work Phone: Start: 12-07-2021 US scan of thyroid REVERSE UNIT OPERATOR FISHERMANNohelia Alvarado Work Phone: Start: 02-01-2019 Anesthesia consultation Start: 01-24-2019 Anesthesia consultation Plan of Treatment Date Care Activity Detail Author Start: 06-29-2023 FUV, Provider: Acosta Schafer, Status: Pen, Time: 2:15 PM FUV, Provider: Acosta Schafer, Status: Carlyle, Time: 2:15 PM -[facility] [facility] [place] Work Phone: Start: 02-17-2023 Screening for malign ant neoplasm of colon [facility] Start: 12-29-2022 FUV, Provider: Acosta Schafer, Status: Pen, Time: 1:45 PM FUV, Provider: Acosta Schafer, Status: Pen, Time: 1:45 PM [facility] Work Phone: Start: 08-11-2022 FUV, Provider: Acosta Schafer, Status: Pen, Time: 9:45 AM FUV, Provider: Acosta Schafer, Status: Pen, Time: 9:45 AM [facility] Work Phone: Start: 07-23-2022 [facility] Start: 07-14-2022 POV, Provider: Acosta Schafer, Status: Pen, Time: 9:00 AM POV, Provider: Acosta Schafer, Status: Pen, Time: 9:00 AM [facility] Work Phone: Start: 07-01-2022 End: 07-01-2022 Admission to same day surgery center 07/01/2022 Surgery IP Unit Acosta Schafer MD [id number] [place] [address] RIGHT KNEE RIGHT TOTAL KNEE REVISION INSTRUMENTATION ANTONELLA FEMORAL & SCIATIC BLOCK [facility] OR Comment on above: RIGHT KNEE RIGHT TOT AL KNEE REVISION INSTRUMENTATION ANTONELLA FEMORAL & SCIATIC BLOCK Start: 07-01-2022 End: 07-01-2022 Revj total knee arthrp w/wo algrft 1 component KNEE TOTAL ARTHROPLASTY REVISION Loosening of unicondylar knee replacement (HCC) 07/01/2022 10:50 AM [facility] Start: 07-01-2022 Subsequent hospital visit by physician 07/01/2022 Hospital Encounter IP Unit Acosta Schafer MD [id number] [place] [address] [facility] Start: 07-01-2022 SURGNONUH, Provider: Acosta Schafer, Status: Pen, Time: 7:00 AM SURGNONUH, Provider: Acosta Schafer, Status: Pen, Time: 7:00 AM [facility] Work Phone: Start: 06-25-2022 PREADMIT, Provider: Merrill Alejandro, Status: Pen, Time: 1:45 PM PREADMIT, Provider: Merrill Alejandro, Status: Pen, Time: 1:45 PM [facility] Work Phone: Start: 06-25-2022 [id number], Provider : Natali Tyson, Status: Pen, Time: 1:00 PM [id number], Provider: Natali Tyson, Status: Pen, Time: 1:00 PM [facility] Work Phone: Start: 06-24-2022 Annual Wellness Visi t (AWV) Annual Wellness Visit (AWV) [facility] Start: 12-17-2021 Radionuclide three-p hase bone study NM bone 3 phase [facility] Start: 12-17-2021 End: 12-17-2021 Patient encounter procedure Departed [facility] Start: 12-07-2021 US scan of thyroid US thyroid [facility] Start: 12-07-2021 End: 12-07-2021 Patient encounter procedure Departed [facility] Start: 11-23-2021 Influenza vaccination Flu vaccine (# 1) [facility] Start: 05-18-2021 COVID-19 Vaccine (4 - Booster for Moderna series) COVID-19 Vaccine (4 - Booster for Moderna series) [facility] Start: 02-23-2018 Screening for malign ant neoplasm of breast [facility] Start: 02-23-2018 Shingles vaccine (1 of 2) Shingles v accine (1 of 2) [facility] Start: 02-23-2013 Screening for malign ant neoplasm of colon [facility] Start: 2008 Lipid panel Lipids [facility] Last Size Start: 02-23-2003 Diabetes screen Diabetes screen [facility] Last Size Start: 02-23-1998 Screening for malign ant neoplasm of cervix [facility] Last Size Start: 02-23-1989 Screening for malign ant neoplasm of cervix Pap smear [facility] Start: 02-23-1987 DTaP/Tdap/Td vaccine (1 - Tdap) DTaP/Tdap/Td vaccine (1 - Tdap) [facility] Last Size Start: 02-23-1986 Hepatitis C screening Hepatitis C sc reen [facility] Start: 02-23-1983 HIV screening HIV screen [facility] Start: 1980 Depression Screen Depression Screen [facility] Last Size Start: 1968 COVID-19 Vaccine (#1) COVID-19 Vacci ne (#1) [facility] Last Size End: 07-04-2022 Basic Metabolic Panel w/ Reflex to MG Basic Metabolic Panel w/ Reflex to MG Lab Routine Daily for 3 Days starting 07/02/2022 until 07/04/2022, 2 completed [facility] Phone: Comment on above: Daily for 3 Days sta rting 07/02/2022 until 07/04/2022, 2 completed End: 07-04-2022 CBC panel - Blood by Automated count CBC Lab Routine Daily for 3 Days starting 07/02/2022 until 07/04/2022, 2 completed [facility] [employer] Phone: Comment on above: Daily for 3 Days sta rting 07/02/2022 until 07/04/2022, 2 completed Comprehensive metabo lic 2000 panel - Serum or Plasma [facility] Comprehensive metabo lic 2000 panel - Serum or Plasma [facility] IgA [Mass/volume] in Serum or Plasma [facility] IgG [Mass/volume] in Serum or Plasma [facility] IgM [Mass/volume] in Serum or Plasma [facility] Oxygen therapy [[facility]ini [facility] Data Set] Initiate Oxygen Therapy Protocol Respiratory Care Routine Daily until discontinued starting 07/01/2022 [facility] [employer] Phone: Comment on above: Daily until disconti nued starting 07/01/2022 Spirometry panel Incentive tonja metry Respiratory Care Routine Every 2hr while awake until discontinued starting 07/01/2022 JULIO REICH Last Size Work Phone: Comment on above: Every 2hr while awak e until discontinued starting 07/01/2022 [facility] Immunizations Immunization Date Immunization Notes Care Provider Fa cility 03-16-2016 influenza virus vaccine, unspecified formulation RHEA Alvarado Work Phone: [facility] 03-16-2016 influenza, injectabl e, quadrivalent, preservative free Sindy Davila Other [employer] Other Payers Date Payer Category Payer Private Health Insurance [id number] 2022 Medicaid [id number] 2022 Medicare [id number] 2022 Private Health Insurance [id number] 2022 Self-pay [id number] 2014 Private Health Insurance [id number] 1970 Unknown [id number] 2..[id number]. 182 1968 Unknown [id number] 2.16.840.1.513043.3.579.2. 182 1968 Unknown [id number] 2.16.840.1.235724.3.579.2. 356 1968 Unknown [id number] 2.16.840.1.604536.3.579.2. 1068 1968 Unknown [id number] 2.16.840.1.979378.3.579.2. 1068 1968 Unknown [id number] 2.16.840.1.217818.3.579.2. 1067 1968 Unknown [id number] 2.16.840.1.295541.3.579.2. 1067 1968 Unknown [id number] 2.16.840.1.910013.3.579.2. 1067 1968 Unknown [id number] 2.16.840.1.605138.3.579.2. 1067 1968 Unknown [id number] 2.16.840.1.565654.3.579.2. 1068 Medicare [id number] Medicare [place] MediBlue Dual Adv JR [id number] Unknown [facility] DUAL COMPLETE Unknown [id number] 2.16.840.1.107921.3.579.2. 531 Unknown [id number] 2.16.840.1.503482.3.579.2. 531 Unknown [id number] 2.16.840.1.608472.3.579.2. 531 Unknown [id number] 2.16.840.1.973678.3.579.2. 531 Unknown [id number] 2.16840.1.011170.3.579.2. 531 Social History Date Type Detail Facility Start: 06-03-2017 End: 09-21-2022 Tobacco smoking status NHIS Never smoked tobacco (finding) [facility] Start: 1970 Sex Assigned At Female F [facility] Start: 06-24-2022 Tobacco use and exposure Smokeless tobacco non-user JULIO [employer] Phone: Start: 06-24-2022 End: 03-10-2023 Alcohol intake Current drinker of alcohol (finding) JULIO [employer] Phone: Start: 06-24-2022 Alcohol Comment occasional BON Lever Phone: Start: 1970 Sex Assigned At Not on file B ON [employer] Phone: Start: 06-14-2022 End: 06-24-2022 Exposure to SARS-CoV-2 (event) Not sure JULIO Klique Phone: Sex Assigned At Sex Assigned At Bir th [employer] Other Medical Equipment Procedure Code Equipment Code Equipment Origin al Text Equipment Identifier Dates Cement Bioprep S t - [id number] Start: 07-01-2022 Stem Tib [id number] [id number] Knee Tot Stbl Joey Roberta Triathlon - [id number] , [id number] FDA Start: 07-01-2022 Clinical Notes [...] of both lower extremities (ICD-10 - I87.303) [employer] Other 10-04-2023 Evaluation note* Encounter Date Diagnosis [...] Bilateral lower extremity edema (ICD-10 - R60.0) [employer] Other 04-24-2023 Consult note Author Zoey Ramirez [facility] August 16, 2022 3:19pm Note Date/Time August 16, 2022 2:2 0pm [facility] [place] [address] Hem/Onc Consult Note - OP Signed Patient: Geeta Shelton MR#: [id number] : 1970 Acct:[id number] Age/Sex: 52 / F Type: REG RCR Copies to: Elizabeth Alvarado APRN,SUPERVISOR BENZENE REFINING Lorrie Baig DO~ HPI Date/Time of Service: Date of Service: 08/16/2022 Time of Service: 14:19 Referring Provider/PCP: Referring Provider: Lorrie Baig DO PCP: Elizabeth Alvarado APRN, RADAR MECHANIC-C - History of Present Illness Reason for [...] blood disorder. No history of thrombosis. [facility] - Medical History Medical History: Medical History [...] Additional comments: Patient: Geeta Shelton MR#: [id number] : 1970 Acct:[id number] Age/Sex: 51 / F ADM Date: 2 Loc: [place] [facility]: [facility]: Tyler Villeda PA-C Copies to: CARLI Noyola Jeffrey S DO~ Ordering Provider: Tyler Villeda PA-C Date of Service: 12/17/21 AR/AR bone 3 phase: M25.562, M25.561 Nuclear medicine [...] for coordination of care (as documented) and lirt-up-dgnq counseling of patient and/or family. Dictated By: Zoey Ramirez APRN DD/ [id number] Signed By: <Electronically signed by RHEA Ramirez> 08/16/22 [id number] [facility] Work Phone: 1(580) 637-438203-11-2023 History of Present illness Narrative* Sosa Poon [...] tape after removal as ordered. Patient has [facility] set up. Knee immobilizer sent [...] Therapy Med Surg Daily Treatment Note Facility/Department: [address] ORTHO TELE Room: [facility]/[place] [address] NAME: Geeta Shelton : 1970 (52 y.o.) [...] BLOCK-DEMETRIA performed by Acosta Schafer MD at [facility] [place] Chart Reviewed: Yes Restrictions: Restrictions/Precautions: Fall [...] Recommendations: Continue to assess pending progress Goals Senior Care Goals Senior Care Goal 1: Bed mobility with indep Senior Care Goal 2: Functional transfes with indep Under Water Assistant Goal 3: Amb 50ft with 2ww and indep Under Water Assistant Goal 4: 4 steps with handrail and SBA Senior Care Goal 5: indep with HEP to improve [...] Therapy Med Surg Daily Treatment Note Facility/Department: [address] ORTHO TELE Room: [facility]/W268-01 NAME: Geeta Shelton : 1970 (52 y.o.) [...] Recommendations: Continue to assess pending progress Goals Senior Care Goals Senior Care Goal 1: Bed mobility with indep Senior Care Goal 2: Functional transfes with indep Under Water Assistant Goal 3: Amb 50ft with 2ww and indep Senior Care Goal 4: 4 steps with handrail and SBA Senior Care Goal 5: indep with HEP to improve LE strength and ROM Patient Goals Patient Goals : to go home PLAN General Plan: 2 times a day 7 days a week Safety Devices Type of Devices: All fall risk precautions in place, Call light within reach, Left in bed, Bed alarm in place, Nurse notified [facility] (6 CLICK) BASIC MOBILITY AM-PAC Inpatient Mobility [...] the task * Arya Coronado, RHEA - SUPERVISOR BENZENE REFINING - 07/02/2022 9:49 AM EST Progress Note [...] pack per his order. * Mic Aparicio [facility] UNDERWRITER - 07/01/2022 5:51 PM EST Images from [...] puffs by inhalation with spacer [] Ipratropium Ellsworth 0.02% unit dose by aerosol Ipratropium Ellsworth MDI 2 puffs by inhalation with spacer [] Duoneb (Ipratropium + Albuterol) unit dose by aerosol Ipratropium MDI + Albuterol MDI 2 puffs byinhalation w/spacer MDI to Aerosol [] Albuterol Sulfate MDI Albuterol Sulfate 0.083% unit dose by aerosol [] Levalbuterol MDI 2 puffs by inhalation Levalbuterol 1.25 mg unit dose by aerosol [] Ipratropium Ellsworth MDI by inhalation Ipratropium [place]sworth 0.02% unit dose by aerosol [] Combivent (Ipratropium + Albuterol) MDI by inhalation Duoneb (Ipratropium + Albuterol) unit doseby aerosol Treatment Assessment [Frequency/Schedule]: Change frequency to: NO CHANGE per Protocol, P&T, [facility] Points 0 1 2 3 4 Pulmonary [...] (52 y.o.) CODE STATUS: Full Code Room: [place] [address] Date of Service: 07/01/2022 Patient Diagnosis(es): Loosening [...] Ambulation Assistance: Independent Transfer Assistance: Independent Active Web Site Designer: Yes Mode of Transportation: Car OBJECTIVE: Orientation Status: Orientation Overall Orientation Status: Within Functional Limits Orientation Level: Oriented X4;Oriented to place;Oriented to time;Oriented to situation;Oriented toperson Observation: Observation/Palpation Posture: Good Observation: right knee incision with bandage and knee immobilizer in place Cognition Status: Cognition Overall Cognitive Status: [facility] Cognition Comment: Follows commands consistently [...] 6 complexities Assistance / Modification: Mod A [facility] (Six Click) Self care Score How much [...] How much help for eating meals?: None -[facility] Inpatient Daily Activity Raw Score: 19 [...] Physical Therapy Med Surg Initial Assessment Facility/Department: [address] TELE Room: [place] [address] NAME: Geeta Shelton : 1970 (52 y.o.) [...] Ambulation Assistance: Independent Transfer Assistance: Independent Active Web Site Designer: Yes Mode of Transportation: Car OBJECTIVE: Vision [...] Goals: Patient Goals : to go home Under Water Assistant Goals Under Water Assistant Goal 1: Bed mobility with indep Under Water Assistant Goal 2: Functional transfes with indep Under Water Assistant Goal 3: Amb 50ft with 2ww and indep Under Water Assistant Goal 4: 4 steps with handrail and SBA Under Water Assistant Goal 5: indep with HEP to improve [...] accomplish the task [facility] Work Phone: 1(447) 231-307903-09-2023 History of Present illness Narrative* History of [...] she will most likely do this at [facility] in [place]. * Physical exam * General: No acute [...] see dictated x-ray report * Procedure * Stanton removed Steri-Strips placed without complication * Assessment [...] grammatical areas may persist related to the LSEO software * Merrill Alejandro PA-C * . [facility] Work Phone: [phone]) 378-718203-07-2023 Hospital Discharge instructions* Discharge Instructions* Arya Coronado [...] Hospital Unit/Room#: W268/W268-01 Discharging Unit Phone Number: [phone] Emergency Contact: Extended Emergency Contact Information Primary Emergency Contact: kena travis [place] Relation: Other Past Surgical History: Past Surgical History: Procedure Laterality Date JOINT REPLACEMENT Left knee PARTIAL KNEE ARTHROPLASTY Right REVISION TOTAL KNEE ARTHROPLASTY Right 07/01/2022 RIGHT KNEE RIGHT TOTAL KNEE REVISION INSTRUMENTATION ANTONELLA FEMORAL & SCIATIC BLOCK-DEMETRIA performed by Acosta Schafer MD at [facility] [place] Immunization History: There is no immunization [...] Assisted Dressing Assisted Toileting Independent Feeding Independent Human Services Manager Independent Med Delivery whole Wound Care Documentation [...] applicable) Name: Address: Dialysis Schedule: Phone: Fax: Special Education Paraprofessional/Float Remover signature: {Esignature:[id number]} PHYSICIAN SECTION Prognosis: {Prognosis:8379264916} Condition at Discharge: {MH Patient Condition:066569870} Rehab Potential (if transferring to Rehab): {Prognosis:4132145009} Recommended Labs or Other Treatments After Discharge: Physician Certification: I certify the above information and transfer of Geeta Shelton is necessary for the continuing treatment of the diagnosis listed and that she requires {Admit to AppropriateLevel of Care:57141} for {GREATER/LESS:909770774} 30 days. Update Admission H&P: {CHP DME Changes in HandP:322918353} PHYSICIAN SIGNATURE: {Esignature:[id number]} * Attachments The following attachments cannot be sent through Care Everywhere. * Total Knee Replacement Surgery: General Info (Nigerian) * Wound: VAC (Vacuum-Assisted Closure) (Nigerian) documented [facility] Phone: [phone]) 268-898103-02-2023 History of Present illness Narrative* Sindy Pelaez RN - 06/24/2022 11:10 AM EST Yellow PAT and Dynahex instruction sheet reviewed with patient, who verbalized understanding. documented in this encounterWORCESTER STATE [facility]ITALExperif[facility] [employer] Phone: evaluation noteNo assessment information available [facility] Work Phone: Evaluation note* Diagnosis Status post revision of total knee replacement, right- Primary Status post revision of total replacement of right knee Acute postoperative pain Other acute postoperative pain documented in this encounter [facility] Work Phone: evaluation note* Diagnosis Onset Date Resolution Status MGUS (monoclonal gammopathy of unknown significance) acute Microcytosis acute Peripheral neuropathy acute [facility] Work Phone: Evaluation note* Diagnosis Onset Date Resolution Status MGUS (monoclonal gammopathy of unknown significance) acute Microcytosis acute Peripheral neuropathy acute MGUS (monoclonal gammopathy of unknown significance) acute [facility] Work Phone: History general Narrative - Reported* Type Description Date Medical History asthma Medical History snoring Medical History Allergic Rhinitis Medical History Essential Hypertension Surgical History Revise/Replace left knee joint Surgical History Varicose Veins 2010 Surgical History Right ankle surgery Hospitalization History See above Bilibot Other History of Present illness Narrative* New [...] grammatical areas may persist related to the LSEO software * Acosta Schafer MD * Senior Attending Physician * [facility] * . [facility] [facility] Work Phone: History of Present [...] grammatical areas may persist related to the LSEO software * Acosta Schafer MD * Senior Attending Physician * [facility] * . [facility] [facility] Work Phone: History of Present [...] will be re-assessed and goals updated. [facility] Work Phone: History of Present illness [...] will be re-assessed and goals updated. [facility] Work Phone: History of Present illness Narrative* [...] grammatical areas may persist related to the LSEO software * Acosta Schafer MD * Senior Attending Physician * [facility] * . [facility] [facility] Work Phone: History of Present [...] grammatical areas may persist related to the LSEO software * Merrill Alejandro PA-C * . [facility] [facility] Work Phone: Progress note Author Krzysztof Salazar [facility] September 21, 2022 9:52am Note Date/Time September 21, 2022 9:49a m [facility] [place] [address] Hem/Onc Follow Up Note - OP Signed Patient: Geeta Shelton MR#: [id number] : 1970 Acct:[id number] Age/Sex: 52 / F Type: REG RCR Copies to: Elizabeth Alvarado APRN,SUPERVISOR [employer] REFINING Lorrie Baig,~ Date of Service: 09/21/2022 Time [...] for coordination of care (as documented) and [id number] counseling of patient and/or family. [facility] - Medical History Medical History: Medical History [...] by Krzysztof Salazar, II, DO> 09/21/22 0952 [facility] Work Phone: Reason for visit Narrative* Initial Evaluation, Pre-Op . * [facility] Work Phone: Reason for visit Narrative* Initial Evaluation, Pre-Op . * Referred by: [facility]. [facility] Work Phone: Summary Purpose Family History [...] right knee Born, Arya RamirezRHEA cedeño - SUPERVISOR [employer] [address] [place] [address] Referral ID Status Reason Start Date Expiration Date V isits Requested Visits Authorized [id number] Open Specialty Services Required 07/01/2022 07/01/2023 1 1 Question Answer I certify that I, or a nurse practitioner or physician retail assistant store manager working with me, had an in-person encounter with the patient and the reason for the home care services is documented in the clinical note on: 07/01/2022 Will the referring provider be the attending provider for home health? Holden of attending provider for home health Dr. [...] content) DATE CREATED AUTHOR 02/01/2019 [facility] DATE CREATED AUTHOR AUTHOR'S ORGANIZ ATION 07/04/2022 [facility] DATE CREATED AUTHOR AUTHOR'S ORGANIZ ATION 07/08/2022 [facility] DATE CREATED AUTHOR AUTHOR'S ORGANIZ ATION 12/30/2022 [facility] DATE CREATED AUTHOR AUTHOR'S ORGANIZ ATION 01/09/2023 [facility] DATE CREATED AUTHOR AUTHOR'S ORGANIZ ATION 02/19/2024 [facility] DATE CREATED AUTHOR AUTHOR'S ORGANIZ ATION 06/12/2024 [facility] Teams (unrecognized sec tion and content) Team Status: Active Member Role Status Dates Elizabeth Alvarado APRN RADAR MECHANIC-C Primary Care Provide r Active Team Status: Inactive Member Role Status Dates Elizabeth Alvarado , RHEA RADAR MECHANIC-C Primar y Care Provider, Attending Provider Active Team Status: Inactive Member Role Status Dates Elizabeth Alvarado APRN RADAR MECHANIC-C Primary Care Provide r Active Lorrie Baig DO Attending Provider Active Team Status: Inactive Member Role Status Dates Elizabeth Alvarado , RHEA RADAR MECHANIC-C Primary Care Provide r Active JEREMIAS Cavazos-C Attending Provider Active Team Status: Inactive Member Role Status Dates Elizabeth Alvarado APRN RADAR MECHANIC-C Attending Provider A ctive Services [facility] Primary Care Provider Active Black And White Printer Operator Relationship Specialty Start Date End Date Elizabeth Alvarado PCP - General 07/01/22 Team Status: Active Member Role Status Dates Elizabeth Alvarado APRN RADAR MECHANIC-C Primary Care Provide r Active Zoey Ramirez APRN Attending Provider Active Lorrie Baig DO Referring Provider Active Team Status: Inactive Member Role Status Dates Elizabeth Alvarado APRN RADAR MECHANIC-C Primary Care Provide r Active Acosta Schafer Attending Provider Active Team Status: Inactive Member Role Status Dates Elizabeth Alvarado APRN RADAR MECHANIC-C Primary Care Provide r Active Sindy Davila NP-C Attending Provider Active Team Status: Inactive Member Role Status Dates Elizabeth Alvarado , RHEA RADAR MECHANIC-C Attending Provider A ctive Start: August 24, 2023 End: August 24, 2023 Team Status: Active Member Role Status Dates PHYSICIAN NO FAMILY Primary Care Provider Active Team Status: Inactive Member Role Status Dates Elizabeth Alvarado APRN RADAR MECHANIC-C Attending Provider A ctive Start: September 07, 2023 End: September 07, 2023 PHYSICIAN NO FAMILY Primary Care Provider Active Start: September 07, 2023 End: September 07, 2023 Team Status: Active Member Role Status Dates Elizabeth Alvarado APRN RADAR MECHANIC-C Primary Care Provide r Active Start: September 30, 2023 Zoey Ramirez APRN Active Start: September 30, 2023 Lorrie Baig DO Referring Provider Active Sta rt: September 30, 2023 Krzysztof Salazar II, DO Attending Provider Active Start: September 30, 2023 Team Status: Inactive Member Role Status Dates Elizabeth Alvarado APRN RADAR MECHANIC-C Primary Care Provide r Active Start: September [...] FEMORAL & SCIATIC BLOCK Acosta Schafer MD [address] [place] [address] [facility] [address] [place] [address] Referral ID Status Reason Start Date Expiration Date Visits Re quested Visits Authorized [id number] 1 1 Ordered Prescriptions (unrec ognized section [...] Fouzia Ramos RN) 0125 (Stopped - Provider: oFuzia Ramos RN) vancomycin 1000 mg IVPB in 250 mL NS addavial (COMPLETED) 1,000 mg, IntraVENous, at 250 mL/hr, Administer over 60 Minutes, POWDER CUTTING OPERATOR TO O.R., On Renee 07/01/22 at 0845, [...] BE BASED ON THE PRIMARY CLINICAL RECORDS. [employer] [facility]. provides no warranty or guarantee of the accuracy or completeness of information in this document.
== END 2024-09-12 08:56 | disposition home or self-care (01) ==
LOC: WC 08:55
PROVIDERS: Visit Provider Physician Assistant
DX: E11.621 Type 2 diabetes mellitus with foot ulcer (principal); L97.412 Non-pressure chronic ulcer of right heel and midfoot with fat layer exposed
CPT/HCPCS: 11043

== ENCOUNTER 2024-09-26 08:44 | Outpatient (OUT) | payer MEDICARE, MEDICAID, SELFPAY ==
--- OUTSIDE RECORDS SUMMARY | 2014-02-13 04:00 | XMS_ITS | Continuity of Care Document ---
Author Organization [facility] Address [address] [place] [address] Phone Care Team Providers Care Vice Investigator Name Role Phone Lazaro SUBHA July Unavailable [...] Diagnoses Date Provider Providers Copied on Encounter [facility], [address] [place] [address], [id number], [place] tel:[phone] Dental Clinic Dental examination Lazaro DMD July. [address] [place], [place], [id number], [place]. tel:[phone] [facility], [address] [place], [place], [id number], tel:[phone] Dental Clinic Dental examination Lazaro DMD Susan. [address] [place], [place], [id number], [place]. tel:[phone] [facility], [address] [place], [place], [id number], [place] tel:[phone] Dental Clinic Dental examination Sergey Higginbotham. [address] [place], [place], [id number], [place]. tel:[phone] Family History Family Member Type Diagnosis Age At Onset No Information Payers Payer name Insurance type Covered alliance party ID Lisbethrich fermin(s) D Medicaid Primary [facility] [id number] Social History Type Description Quantity Date Captured [...]
--- OUTSIDE RECORDS SUMMARY | 2024-03-28 04:45 | XMS_ITS ---
Author Organization The [facility] in [place] Address [address] [place] [address] Care Team Providers Care Curator Name Role Phone Mimi Whitfield NP Primary Care Provider UnavailJun Call Unavailable [phone] Allergies Allergen (clinical drug ingredient) Drug/Non Drug [...] Answer Notes Tobacco use: Nonsmoker Vital Signs Height 65 in 03/28/2024 Temperature 97.1 degrees Fahrenheit 03/28/20 24 Heart Rate 74 /min 03/28/2024 Oximetry 96 % 03/28/2024 Encounters Encounter Location Date Provider Diagnosis [facility] (PODIATRY) [address] [place] [address] [place] [address] 03/28/2024 Jun Gentile Charcot's joint, left ankle [...] * Anita VANCEDOB: 8 (54 yo F)Acc No.[id number]:03/28/2024 Follow Up Patient: Anita IBANEZ Provider: Rad Gentile DPM, MS :1970 A ge:54 Y S ex:Female Date:03/28/2024 Address:[address] [place] [address], [id number] Pcp:Services Family Health Check In:08:36 AM ESTCheck [...] 05/29/2023 Generated for Jacki gallo/Saloni/Georgiaitting on: 0 09/26/2024 08:47 AM EDT History and Physical Notes * HPI (History of Present Illness) Category Sub-Category Detail Notes Category Not es General Patient returns to office today for PGE study review. Patient states she is in [...]
--- OUTSIDE RECORDS SUMMARY | 2024-06-05 09:15 | XMS_ITS ---
Author Organization The [facility] in [place] Address [address] [facility] [place] [address] Care Team Providers Care Senior Technologist Name Role Phone Naihd HAMM, Mimi Primary Care Provider Jun Fair Unavailable [phone] REASON FOR VISIT rt ankle pain/ swollen Encounters Encounter Location Date Provider Diagnosis [facility] (PODIATRY) [address] [place] [address] [place] [address] 06/05/2024 Jun Gentile Pain in right ankle and joints of right foot M25.571 Assessments Encounter Date Diagnosis (ICD Code) Assessment Notes Treatment Notes Treatment Clinical Notes Section Notes 06/05/2024 Pain in right ankle and joints of right foot (ICD-10 - M25.571) Plan Of Treatment Pending Test Test Name Order Date XR Ankle RT (3 views) * (161) 06/05/2024 Progress Notes * VANCEAnitaDOB: 8 (54 yo F)Acc No.[id number]:06/05/2024 UNLOCKED PROGRESS NOTE Follow Up Patient: Anita IBANEZ Provider: Rad Gentile DPM MS :1970 A ge:54 Y S ex:Female Date:06/05/2024 [address] [facility] [address] [facility] [id number] Pcp:Mimi Whitfield NP Subjective: * Chief Complaints: * 1 . Rt ankle pain/ swollen. * Medical History: Objective: * Vitals: Assessment: * Assessment: 1. P ain in right ankle and joints of right foot - M25.571 Plan: * Treatment: * * Electronic signature of Chad Gentile DPM on 09/26/2024 at 08:47 AM EDT Sign off status: Pending Visit Status: C ANC (Cancelled) * Provider: Rad Gentile DPM, MS Date: 0 06/05/2024 Generated for Jacki gallo/Saloni/Pippa on: 0 09/26/2024 08:47 AM EDT
--- OUTSIDE RECORDS SUMMARY | 2024-06-11 06:00 | XMS_ITS ---
Author Organization [facility] in [place] Address [address] [place] [address] Care Team Providers Care Tennis Player Name Role Phone Mimi Whitfield NP Primary Care Provider Yonny Bee Unavailable [phone] REASON FOR VISIT peer to peer Problems Problem Type SNOMED Code ICD Code Onset Dates Problem Status W/U Status Risk Notes Problem Sepsis (A41.9) Active confirmed Problem Culture positive for methicillin resistant Staphylococcus aureus (962110377) MRSA (methicillin resistant staph aureus) culture positive (Z22.322) Active confirmed Vital Signs Height 65 in 06/11/2024 Encounters Encounter Location Date Provider Diagnosis [facility] [address] [place] [address] 06/11/2024 Yonny Quinn Sepsis A41.9 and MRS A (methicillin resistant staph aureus) culture positive Z22.322 Assessments Encounter Date Diagnosis (ICD Code) Assessment Notes Treatment Notes Treatment Clinical Notes Section Notes 06/11/2024 Sepsis (ICD-10 - A41.9) 06/11/2024 MRSA (methicillin resistant staph aureus) culture positive (ICD-10 - Z22.322) Plan Of Treatment No Information Progress Notes * Anita VANCEDOB: [birth year] (54 yo F)Acc No.[id number]:06/11/2024 Progress Note Patient: Anita IBANEZ Provider: Tika Quinn ([facility])MD :1970 A ge:54 Y S ex:Female Date:06/11/2024 [address] [id number] Pcp:[facility] Check In:10:02 AM EST Subjective: * Chief Complaints: * P eer to peer * HPI: G eneral: 15plus minute discussiuon review ing admission criteria and need for inpatient status due to MRSA positive Cellulitis of foot - need for prolonged IV AB. 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 Modified On:12/16/2023U Status:confirmed L89.891 Pressure ulcer of ot her site, stage 1 Modified On:12/30/2023U Status:confirmed L97.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 Assessment: * Assessment: 1. S epsis - A41.9 (Primary) 2 . M RSA (methicillin resistant staph aureus) culture positive - Z22.322 Plan: * Treatment: * Procedure Codes: 9 9254 CONS INPT,NPEST,COMP,(M) * * Sign off status: Completed Visit Status: A RR (Check-In) true * Provider: Tika Quinn ([facility])MD Date: 0 06/11/2024 Generated for Jacki gallo/Saloni/Georgiaitting on: 0 09/26/2024 08:48 AM EDT History and Physical Notes * HPI (History of Present Illness) Category Sub-Category Detail Notes Category Not es General 15plus minute d ariella review ing admission criteria and need for inpatient status due to MRSA positive Cellulitis of foot - need for prolonged IV AB
--- OUTSIDE RECORDS SUMMARY | 2024-09-06 05:30 | XMS_ITS ---
Author Organization [facility] es Address [address] [place] [address] Care Team Providers Care Recording Studio Setup Worker Name Role Phone Mamadou Chang Primary Care Provider [phone] REASON FOR VISIT est care Encounters Encounter Location Date Provider Diagnosis [facility] [address] [place] [address] 09/06/2024 Mamadou Chang Plan Of Treatment No Information Progress Notes * GEETA VANCEDOB: [birth year] (54 yo F)Acc No.[id number]:09/06/2024 Progress Notes Patient: Kaylin GEETA PLASCENCIA Provider: Kaylin Chang :1970 A ge:54 Y S ex:Female Date:09/06/2024 [address] [id number] Subjective: * Chief Complaints: * 1 . Est care. * Medical History: Objective: * Vitals: Assessment: Plan: * Treatment: * Images: * Electronic signature of Debo Chang DO on 09/26/2024 at 08:48 AM EDT Sign off status: Pending * Provider: Kaylin Chang Date: 0 09/06/2024 Generated for Jacki gallo/Saloni/Pippa on: 0 09/26/2024 08:48 AM EDT
--- OUTSIDE RECORDS SUMMARY | 2024-09-20 05:30 | XMS_ITS ---
Author Organization [facility] es Address [address] [place] [address] Care Team Providers Care Fish Farm Manager Name Role Phone Mamadou Chang Primary Care Provider [phone] REASON FOR VISIT EST CARE-NEW TO YOU Encounters Encounter Location Date Provider Diagnosis [facility] [address] [place] [facility] [place] [place] [address] 09/20/2024 Mamadou Chang Plan Of Treatment No Information Progress Notes * GEETA VANCEDOB: [birth year] (54 yo F)Acc No.[id number]:09/20/2024 Progress Notes Patient: Kaylin FEITRICIAGEETA Provider: Kaylin Chang :1970 A ge:54 Y S ex:Female Date:09/20/2024 [id number] Subjective: * Chief Complaints: * 1 . EST CARE-NEW TO YOU. * Medical History: Objective: * Vitals: Assessment: Plan: * Treatment: * Images: * Electronic signature of Debo Chang DO on 09/26/2024 at 08:48 AM EDT Sign off status: Pending * Provider: Kaylin Chang Date: 0 09/20/2024 Generated for Jacki gallo/Saloni/iPppa on: 0 09/26/2024 08:48 AM EDT
--- OUTSIDE RECORDS SUMMARY | 2024-09-26 08:48 | XMS_ITS | Patient Health Record ---
Author Organization [facility] in [place] Address [address] [place] [address] Care Team Providers Care Mechanic [employer] Name Role Phone Mimi Whitfield NP Primary Care Provider Unavailab Hilda Lucero Unavailable [phone] Olga Vallejo Unavailable [phone] Yonny Quinn Unavailable [phone] Allergies Allergen (clinical drug ingredient) Drug/Non Drug Allergy documented on EMR Reaction Allergy Type Onset Date Status Penicillin Unknown Drug Allergy Active Results Component Value Reference Range Notes VC SEGMENTAL PRESSURES Reviewed date:06/04/2024 01:00:24 PM Interpretation: Performing Lab: Notes/Report: Source Facility: [place] [address] Vein Report Signed Patient: GEETA VANCE MR#: [id number] : 1970 Acct:[id number] Age/Sex: 54 / F ADM Date: 03/20/24 Loc: VC Attending Dr: Hilda Gentile D.P.M. Ordering Physician: Hilda Gentile D.P.M. Date of Service: 03/20/24 Procedure(s): VC SEGMENTAL PRESSURES Accession Number(s): [id number] cc: Hilda Gentile D.P.M.; Physician,Non-Staff MJuan [place] [address] Patient Name: GEETA VANCE MRN: [id number] date: 1970 Sex: F Assigned Patient Location: VC Current Patient Location: Accession/Order Number: [id number] Exam Date: 03/20/2024 14:44 Report Date: 03/26/2024 07:54 At the request of: HILDA GENTILE Procedure: VC SEGMENTAL PRESSURES EXAM: VC SEGMENTAL PRESSURES HISTORY: R09.89 COMPARISON: None. FINDINGS: Segmental pressures presented as follows (right, left) in mmHg. Brachial: 154, 164 Lower thigh: 219, 214 Calf: 178, 204 DPA: 105, 79 ORDER DESK CALLER: 158, 118 1st Toe: 211, 200 PEG: 0.96, 0.72 TBI: 1.29, 1.22 The ABIs demonstrate mild arterial occlusive disease The TBI's are Acceptable PVR waveforms: Right leg: Thigh: Normal Above knee: Normal Below knee: Normal Right ankle: Normal Left leg: Thigh: Normal Above knee: Normal Below knee: Normal Right ankle: Normal VEIN/VC SEGMENTAL PRESSURES IMPRESSION: ABIs demonstrate mild arterial occlusive disease Normal PVR waveforms Electronically authenticated by: PAUL CAGLE Date: 03/26/2024 07:54 Dictated By: Paul Cagle M.D. Signed By: 03/26/24755 DD/ 3 TD/TT: Aircraft Cleaning Supervisor: [place] [address] Vein Report Signed Patient: ROCIO VANCE MR#: [id number] : 1970 Acct:[id number] Age/Sex: 54 / F ADM Date: 03/20/24 Loc: VC Attending Dr: Hilda Gentile D.P.M. Ordering Physician: Hilda Gentile D.P.M. Date of Service: 03/20/24 Procedure(s): VC SEGMENTAL PRESSURES Accession Number(s): [id number] cc: Hilda Gentile D.P.M.; Physician,Non-Staff [place] [facility] [address] [address] Patient Name: GEETA VANCE MRN: [id number] date: 1970 Sex: F Assigned Patient Location: VC Current Patient Location: Accession/Order Numb er: [id number] Exam Date: 14:44 Report Date: 03/26/2024 07:54 At the request of: HILDA GENTILE Procedure: VC SEGMEN SELAM PRESSURES EXAM: VC SEGMENTAL PRESSURES HISTORY: R09.89 COMPARISON: None. FINDINGS: Segmental pressures presented as follows (right, left) in mmHg. Brachial: 154, 164 Lower thigh: 219, 214 Calf: 178, 204 DPA: 105, 79 ORDER DESK CALLER: 158, 118 1st Toe: 211, 200 PEG: 0.96, 0.72 TBI: 1.29, 1.22 The ABIs demonstrate mild arterial occlusive disease The TBI's are Acceptable PVR waveforms: Right leg: Thigh: Normal Above knee: Normal Below knee: Normal Right ankle: Normal Left leg: Thigh: Normal Above knee: Normal Below knee: Normal Right ankle: Normal VEIN/VC SEGMENTAL PRESSURES IMPRESSION: ABIs demonstrate mil d arterial occlusive disease Normal PVR waveforms Electronically authenticated by: PAUL CAGLE Date: 03/26/2024 07:54 Dictated By: Farhad Cagle M.D. Signed By: 03/26/24 0756 DD/ 3 TD/TT: Aircraft Cleaning Supervisor: CT foot RT w con Reviewed date:06/03/2024 11:04:29 AM Interpretation: Performing Lab: Notes/Report: Source Facility: [place] [address] CT Scan Report Signed Patient: GEETA VANCE MR#: [id number] : 1970 Acct:[id number] Age/Sex: 54 / F ADM Date: 06/02/24 Loc: ICU 276-[address]: Tasha Quinn M.D. Ordering Physician: Tasha Quinn M.D. Date of Service: 06/02/24 Procedure(s): CT foot RT w con Accession Number(s): [id number] cc: FAMILY,HEALTH SER [facility] [place] [address] Patient Name: GEETA VANCE MRN: [id number] date: 1970 Sex: F Assigned Patient Location: ICU Current Patient Location: ICU Accession/Order Number: [id number] Exam Date: 06/02/2024 16:38 Report Date: 06/02/2024 19:46 At the request of: TASHA QUINN Procedure: CT foot RT w con EXAM: CT foot RT w con HISTORY: abscess COMPARISON: Right foot x-ray 06/02/2024. TECHNIQUE: Axial scans obtained from distal tibia and fibula and ankle to plantar surface of right foot and ankle. Coronal and sagittal reformatted images obtained. Reviewed in bone and soft tissue windows. No contrast. Dose reduction techniques were achieved by using automated exposure control and/or adjustment of mA and/or kV according to patient size and/or use of iterative reconstruction technique. FINDINGS: There is what appears to be focal superficial ulcer along the plantar surface of the hindfoot and area of abnormality on x-ray with some underlying skin thickening and focal edema and inflammatory changes of the plantar subcutaneous fat in this region. Consistent with cellulitis in the appropriate clinical setting. Area of induration extends approximately 4.5 cm proximal to distal extends plantar and dorsal approximately 2 cm. Correlate with exam. No underlying abscess. There is some mild edema within the medial soft tissues at ankle and circumferentially at the ankle to a lesser degree. No opaque foreign body or gas in the tissues. There is moderate fusiform thickening of the distal Achilles tendon consistent with chronic distal Achilles tendinosis. Associated dorsal calcaneal enthesophyte at distal Achilles insertion. There is moderate plantar calcaneal enthesophyte. There is some mild thickening at origin of medial band of plantar fascia with no significant thickening. Correlate for any signs or symptoms of chronic fasciitis in this region. Remaining tendons at ankle and leg are otherwise normal in size and appearance and position. There is diffuse osseous mineralization. No lytic or blastic or destructive changes or evidence of osteomyelitis. No fractures. There is [id number] degenerative ankle mortise narrowing and osteoarthritis. Subtalar joints and remaining foot and ankle joints are well-maintained. No joint effusions. No subluxation or dislocation. There is a small os trigonum. Osseous mineralization is suspected osteoporosis. CT/CT foot RT w con IMPRESSION: 1. Findings consistent with focal cellulitis involving the plantar subcutaneous fat with small superficial ulcer in region at hindfoot as discussed. This corresponds to plain film abnormality. No underlying opaque foreign body or abscess. 2. No acute bone or joint findings or evidence of osteomyelitis. 3. 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 4. Plantar calcaneal enthesopathy. See comments above. Electronically authenticated by: LESA HERNANDEZ Date: 06/02/2024 19:46 Dictated By: Lesa Hernandez D.O. Signed By: 06/02/241948 DD/ 45 TD/TT: Aircraft Cleaning Supervisor: [place] [address] CT Scan Report Signed Patient: ROCIO VANCE MR#: [id number] : 1970 Acct:[id number] Age/Sex: 54 / F ADM Date: 06/02/24 Loc: ICU 276-[address]: Sole Quinn M.D. Ordering Physician: Tasha Quinn M.D. Date of Service: 06/02/24 Procedure(s): CT fei t RT w con Accession Number(s): [id number] cc: FAMILY,HEALTH SER [place] [address] Patient Name: GEETA VANCE MRN: [id number] date: 1970 Sex: F Assigned Patient Location: ICU Current Patient Loca tion: ICU Accession/Order Numb er: [id number] Exam Date: 06/02/2024 16:38 Report Date: 06/02/2024 19:46 At the request of: TASHA QUINN Procedure: CT foot R T w con EXAM: CT foot RT w con HISTORY: abscess COMPARISON: Right fo ot x-ray 06/02/2024. TECHNIQUE: Axial sca ns obtained from distal tibia and fibula and ankle to plantar surface of r ight foot and ankle. Coronal and sagittal reformatted images obtained. Rev iewed in bone and soft tissue windows. No contrast. Dose reduction techn iques were achieved by using automated exposure control and/or adjustment of mA and/or kV according to patient size and/or use of iterative reconstruc tion technique. FINDINGS: There is w hat appears to be focal superficial ulcer along the plantar surface of the hindf oot and area of abnormality on x-ray with some underlying skin thickening and focal edema and inflammatory changes of the plantar subcutaneous fat in this region. Consistent with cellulitis in the appropriate clinical setting. Ar ea of induration extends approximately 4.5 cm proximal to distal extends plant ar and dorsal approximately 2 cm. Correlate with exam. No underlying abscess. There is some mild e amelia within the medial soft tissues at ankle and circumferentially at the ankle to a lesser degree. No opaque foreign body or gas in the tissues. There is moderate fusiform thickening of the distal Achilles tendon consistent with chronic distal Achilles tendinosis. Associated dorsal calcaneal enthesophyte at dist al Achilles insertion. There is moderate pl [place] calcaneal enthesophyte. There is some mild thickening at origin of medial band of plantar fascia with no significant thickening. Correlate for any si gns or symptoms of chronic fasciitis in this region. Remaining tendons at ankle and leg are otherwise normal in size and appearance and position. There is diffuse oss eous mineralization. No lytic or blastic or destructive changes or evidence of osteomyelitis. No fractures. There is mild-to-mod erate degenerative ankle mortise narrowing and osteoarthritis. Subt alar joints and remaining foot and ankle joints are well-maintained. No joint effusions. No subluxation or dislocation. There is a small os trigonum. Osseous mineralizati on is suspected osteoporosis. C T/CT foot RT w con IMPRESSION: 1. Findings consiste nt with focal cellulitis involving the plantar subcutaneous fat with small superficial ulcer in region at hindfoot as discussed. This corresponds to plain film abnormality. No underlying opaque foreign body or abscess. 2. No acute bone or joint findings or evidence of osteomyelitis. 3. Moderate to sever e chronic distal Achilles insertional tendinosis with associated enthesopa thy at insertion. 4. Plantar calcaneal enthesopathy. See comments above. Electronically authenticated by: LESA HERNANDEZ Date: 06/02/2024 19:46 Dictated By: Lesa Hernandez D.O. Signed By: 06/02/241948 DD/ 45 TD/TT: Aircraft Cleaning Supervisor: Aerobic Culture (Not yet rev iewed by provider) Interpretation: Performing Lab: Notes/Report: [facility] , Aerobic Culture See Below For Report Aerobic Culture Organism: Staphylococcus aureus : O:BETAGC Isolated O:STAAUR Isolated Organism: 1.2 Antibiotic Interpretation MARIA ELENA Status Aerobic Culture *ABNORMAL* Aerobic Culture Organism: Staphylococcus aureus : O:BETAGC Isolated O:STAAUR Isolated Organism: 1.2 Antibiotic Interpretation MARIA ELENA Status Aerobic Culture Heavy growth Aerobic Culture Organism: Staphylococcus aureus : O:BETAGC Isolated O:STAAUR Isolated Organism: 1.2 Antibiotic Interpretation MARIA ELENA Status Aerobic Culture Staphylococcus aureus Aerobic Culture Organism: Staphylococcus aureus : O:BETAGC Isolated O:STAAUR Isolated Organism: 1.2 Antibiotic Interpretation MARIA ELENA Status Aerobic Culture Organism: Staphyloco ccus aureus : Aerobic Culture Organism: Staphylococcus aureus : O:BETAGC Isolated O:STAAUR Isolated Organism: 1.2 Antibiotic Interpretation MARIA ELENA Status Aerobic Culture *ABNORMAL* Aerobic Culture Organism: Staphylococcus aureus : O:BETAGC Isolated O:STAAUR Isolated Organism: 1.2 Antibiotic Interpretation MARIA ELENA Status Aerobic Culture Based on susceptibil ity to oxacillin this isolate would be Aerobic Culture Organism: Staphylococcus aureus : O:BETAGC Isolated O:STAAUR Isolated Organism: 1.2 Antibiotic Interpretation MARIA ELENA Status Aerobic Culture susceptible to: Aerobic Culture Organism: Staphylococcus aureus : O:BETAGC Isolated O:STAAUR Isolated Organism: 1.2 Antibiotic Interpretation MARIAE LENA Status Aerobic Culture *Penicillinase-stabl e penicillins, such as: Aerobic Culture Organism: Staphylococcus aureus : O:BETAGC Isolated O:STAAUR Isolated Organism: 1.2 Antibiotic Interpretation MARIA ELENA Status Aerobic Culture Cloxacillin, Dicloxacillin, Nafcillin Aerobic Culture Organism: Staphylococcus aureus : O:BETAGC Isolated O:STAAUR Isolated Organism: 1.2 Antibiotic Interpretation MARIA ELENA Status Aerobic Culture *Beta-lactam combina tion agents, such as: Aerobic Culture Organism: Staphylococcus aureus : O:BETAGC Isolated O:STAAUR Isolated Organism: 1.2 Antibiotic Interpretation MARIA ELENA Status Aerobic Culture Amoxicillin-clavulan ic acid, Ampicillin-sulbactam, Aerobic Culture Organism: Staphylococcus aureus : O:BETAGC Isolated O:STAAUR Isolated Organism: 1.2 Antibiotic Interpretation MARIA ELENA Status Aerobic Culture Piperacillin-tazobactam Aerobic Culture Organism: Staphylococcus aureus : O:BETAGC Isolated O:STAAUR Isolated Organism: 1.2 Antibiotic Interpretation MARIA ELENA Status Aerobic Culture *Oral cephems, such as: Aerobic Culture Organism: Staphylococcus aureus : O:BETAGC Isolated O:STAAUR Isolated Organism: 1.2 Antibiotic Interpretation MARIA ELENA Status Aerobic Culture Cefaclor, Cefdinir, Cefpodoxime, Cefprozil, Cefuroxime, Aerobic Culture Organism: Staphylococcus aureus : O:BETAGC Isolated O:STAAUR Isolated Organism: 1.2 Antibiotic Interpretation MARIA ELENA Status Aerobic Culture Cephalexin, Loracarbef Aerobic Culture Organism: Staphylococcus aureus : O:BETAGC Isolated O:STAAUR Isolated Organism: 1.2 Antibiotic Interpretation MARIA ELENA Status Aerobic Culture *Parenteral cephems, such as: Aerobic Culture Organism: Staphylococcus aureus : O:BETAGC Isolated O:STAAUR Isolated Organism: 1.2 Antibiotic Interpretation MARIA ELENA Status Aerobic Culture Cefazolin, Cefepime, Cefotaxime, Cefotetan, Ceftaroline, Aerobic Culture Organism: Staphylococcus aureus : O:BETAGC Isolated O:STAAUR Isolated Organism: 1.2 Antibiotic Interpretation MARIA ELENA Status Aerobic Culture Ceftizoxime, Ceftria xone, Cefuroxime Aerobic Culture Organism: Staphylococcus aureus : O:BETAGC Isolated O:STAAUR Isolated Organism: 1.2 Antibiotic Interpretation MARIA ELENA Status Aerobic Culture *Carbapenems, such as: Aerobic Culture Organism: Staphylococcus aureus : O:BETAGC Isolated O:STAAUR Isolated Organism: 1.2 Antibiotic Interpretation MARIA ELENA Status Aerobic Culture Doripenem, Ertapenem , Imipenem, Meropenem Aerobic Culture Organism: Staphylococcus aureus : O:BETAGC Isolated O:STAAUR Isolated Organism: 1.2 Antibiotic Interpretation MARIA ELENA Status Aerobic Culture Heavy growth Aerobic Culture Organism: Staphylococcus aureus : O:BETAGC Isolated O:STAAUR Isolated Organism: 1.2 Antibiotic Interpretation MARIA ELENA Status Aerobic Culture Organism: Beta hemol ytic Strep group C : Aerobic Culture Organism: Staphylococcus aureus : O:BETAGC Isolated O:STAAUR Isolated Organism: 1.2 Antibiotic Interpretation MARIA ELENA Status Aerobic Culture *ABNORMAL* Aerobic Culture Organism: Staphylococcus aureus : O:BETAGC Isolated O:STAAUR Isolated Organism: 1.2 Antibiotic Interpretation MARIA ELENA Status Aerobic Culture Heavy growth Aerobic Culture Organism: Staphylococcus aureus : O:BETAGC Isolated O:STAAUR Isolated Organism: 1.2 Antibiotic Interpretation MARIA ELENA Status Aerobic Culture Penicillin and ampic illin are drugs of choice for Aerobic Culture Organism: Staphylococcus aureus : O:BETAGC Isolated O:STAAUR Isolated Organism: 1.2 Antibiotic Interpretation MARIA ELENA Status Aerobic Culture treatment of beta-hemolytic streptococcal infections. Aerobic Culture Organism: Staphylococcus aureus : O:BETAGC Isolated O:STAAUR Isolated Organism: 1.2 Antibiotic Interpretation MARIA ELENA Status Aerobic Culture Susceptibility testi ng of penicillins and other beta- Aerobic Culture Organism: Staphylococcus aureus : O:BETAGC Isolated O:STAAUR Isolated Organism: 1.2 Antibiotic Interpretation MARIA ELENA Status Aerobic Culture lactam agents approv ed by the FDA for treatment of Aerobic Culture Organism: Staphylococcus aureus : O:BETAGC Isolated O:STAAUR Isolated Organism: 1.2 Antibiotic Interpretation MARIA ELENA Status Aerobic Culture beta-hemolytic streptococcal infections need not be Aerobic Culture Organism: Staphylococcus aureus : O:BETAGC Isolated O:STAAUR Isolated Organism: 1.2 Antibiotic Interpretation MARIA ELENA Status Aerobic Culture performed routinely because nonsusceptible isolates Aerobic Culture Organism: Staphylococcus aureus : O:BETAGC Isolated O:STAAUR Isolated Organism: 1.2 Antibiotic Interpretation MARIA ELENA Status Aerobic Culture are extremely rare i n any beta-hemolytic streptococcus Aerobic Culture Organism: Staphylococcus aureus : O:BETAGC Isolated O:STAAUR Isolated Organism: 1.2 Antibiotic Interpretation MARIA ELENA Status Aerobic Culture and have not been reported for Streptococcus pyogenes Aerobic Culture Organism: Staphylococcus aureus : O:BETAGC Isolated O:STAAUR Isolated Organism: 1.2 Antibiotic Interpretation MARIA ELENA Status Aerobic Culture (group A). (CLSI) Aerobic Culture Organism: Staphylococcus aureus : O:BETAGC Isolated O:STAAUR Isolated Organism: 1.2 Antibiotic Interpretation MARIA ELENA Status Aerobic Culture Beta hemolytic Strep group C Aerobic Culture Organism: Staphylococcus aureus : O:BETAGC Isolated O:STAAUR Isolated Organism: 1.2 Antibiotic Interpretation MARIA ELENA Status Aerobic Culture See Below For Report Aerobic Culture Organism: Staphylococcus aureus : O:BETAGC Isolated O:STAAUR Isolated Organism: 1.2 Antibiotic Interpretation MARIA ELENA Status Aerobic Culture See Below For Report Aerobic Culture Organism: Staphylococcus aureus : O:BETAGC Isolated O:STAAUR Isolated Organism: 1.2 Antibiotic Interpretation MARIA ELENA Status Aerobic Culture Performed at: [facility] Aerobic Culture Organism: Staphylococcus aureus : O:BETAGC Isolated O:STAAUR Isolated Organism: 1.2 Antibiotic Interpretation MARIA ELENA Status Aerobic Culture [address], [place] [id number] Aerobic Culture Organism: Staphylococcus aureus : O:BETAGC Isolated O:STAAUR Isolated Organism: 1.2 Antibiotic Interpretation MARIA ELENA Status Aerobic Culture Supervisor Mill: Torey Duncan PhD, Phone: [phone] Aerobic Culture Organism: Staphylococcus aureus : O:BETAGC Isolated O:STAAUR Isolated Organism: 1.2 Antibiotic Interpretation MARIA ELENA Status Aerobic Culture See Below For Report Aerobic Culture Organism: Staphylococcus aureus : O:BETAGC Isolated O:STAAUR Isolated Organism: 1.2 Antibiotic Interpretation MARIA ELEAN Status Aerobic Culture Ciprofloxacin S F Aerobic Culture Organism: Staphylococcus aureus : O:BETAGC Isolated O:STAAUR Isolated Organism: 1.2 Antibiotic Interpretation MARIA ELENA Status Aerobic Culture Erythromycin S F Aerobic Culture Organism: Staphylococcus aureus : O:BETAGC Isolated O:STAAUR Isolated Organism: 1.2 Antibiotic Interpretation MARIA ELENA Status Aerobic Culture Gentamicin S F Aerobic Culture Organism: Staphylococcus aureus : O:BETAGC Isolated O:STAAUR Isolated Organism: 1.2 Antibiotic Interpretation MARIA ELENA Status Aerobic Culture Levofloxacin S F Aerobic Culture Organism: Staphylococcus aureus : O:BETAGC Isolated O:STAAUR Isolated Organism: 1.2 Antibiotic Interpretation MARIA ELENA Status Aerobic Culture Linezolid S F Aerobic Culture Organism: Staphylococcus aureus : O:BETAGC Isolated O:STAAUR Isolated Organism: 1.2 Antibiotic Interpretation MARIA ELENA Status Aerobic Culture Moxifloxacin S F Aerobic Culture Organism: Staphylococcus aureus : O:BETAGC Isolated O:STAAUR Isolated Organism: 1.2 Antibiotic Interpretation MARIA ELENA Status Aerobic Culture Oxacillin S F Aerobic Culture Organism: Staphylococcus aureus : O:BETAGC Isolated O:STAAUR Isolated Organism: 1.2 Antibiotic Interpretation MARIA ELENA Status Aerobic Culture Penicillin R F Aerobic Culture Organism: Staphylococcus aureus : O:BETAGC Isolated O:STAAUR Isolated Organism: 1.2 Antibiotic Interpretation MARIA ELENA Status Aerobic Culture Rifampin S F Aerobic Culture Organism: Staphylococcus aureus : O:BETAGC Isolated O:STAAUR Isolated Organism: 1.2 Antibiotic Interpretation MARIA ELENA Status Aerobic Culture Tetracycline S F Aerobic Culture Organism: Staphylococcus aureus : O:BETAGC Isolated O:STAAUR Isolated Organism: 1.2 Antibiotic Interpretation MARIA ELENA Status Aerobic Culture Trimethoprim/Sulfame thoxa zole S F Aerobic Culture Organism: Staphylococcus aureus : O:BETAGC Isolated O:STAAUR Isolated Organism: 1.2 Antibiotic Interpretation MARIA ELENA Status Aerobic Culture Vancomycin S F Aerobic Culture Organism: Staphylococcus aureus : O:BETAGC Isolated O:STAAUR Isolated Organism: 1.2 Antibiotic Interpretation MARIA ELENA Status Aerobic Culture Clindamycin S F Aerobic Culture Organism: Staphylococcus aureus : O:BETAGC Isolated O:STAAUR Isolated Organism: 1.2 Antibiotic Interpretation MARIA EELNA Status Performing Lab: see note LC - [facility] LB SEE REPORT - Analytical Data Miner Id information not found for OBX-specific senior producer legend CBC AUTO DIFF Reviewed date:06/05/2024 12:41:43 PM Interpretation: Performing Lab: Notes/Report: [facility] , White Blood Count 9.1 4.0-11.0 10 3/uL Red Blood Count 5.62 4.20-5.40 10 6/uL Hemoglobin 14.0 12.0-16.0 g/dL Hematocrit 44.4 36.0-48.0 % Mean Corpuscular Volume 79.0 81.0-99.0 fL Mean Corpuscular Hemoglobin 24.9 26.7-34.0 pg Mean Corpuscular HGB Conc 31.5 29.9-35.2 g/dL Red Cell Distribution Width 15.8 11.0-15.0 % Platelet Count 307 150-450 10 3/uL Mean Platelet Volume 9.7 9.5-13.5 fL Neutrophils Percent Auto 63.0 43.0-75.0 % Lymphocytes Percent Auto 15.7 20.5-60.0 % Monocytes Percent Auto 11.8 1.7-12.0 % Eosinophils Percent Auto 6.3 0.9-7.0 % Basophils Percent Auto 0.8 0.2-2.0 % Immature Granulocytes Pct Auto 2.4 0.0-0.5 % Neutrophils Absolute Auto 5.7 1.4-6.5 10 3/uL Lymphocytes Absolute Auto 1.4 1.2-3.8 10 3/uL Monocytes Absolute Auto 1.1 0.3-0.8 10 3/uL Eosinophils Absolute Auto 0.6 0.0-0.7 10 3/uL Basophils Absolute Auto 0.1 0.0-0.1 10 3/uL Immature Granulocytes Abs Auto 0.22 0.00-0.03 10 3/uL Performing Lab: see note ML - The [facility] LB CRP Reviewed date:06/05/2024 12:41:43 PM Interpretation: Performing Lab: Notes/Report: [facility] , C Reactive Protein 12.54 <=0.50 mg/dL Performing Lab: see note ML - [facility] LB PROF CHEM 8 (BAS METB) Reviewed date:06/05/2024 12:41:43 PM Interpretation: Performing Lab: Notes/Report: [facility] , Sodium 135 136-145 mmol/L Potassium 4.1 3.5-5.1 mmol/L Chloride 99 98-107 mmol/L Carbon Dioxide 27.5 21.0-32.0 mmol/L Anion Gap 12.6 Glucose 155 74-106 mg/dL Blood Urea Nitrogen 18.0 7.0-18.0 mg/dL Creatinine 0.88 0.55-1.02 mg/dL Estimated GFR ( Eneida >60 >=60 mL/min/1.73m 2 Estimated GFR (Non- Charley >60 >=60 mL/min/1.73m 2 BUN Creatinine Ratio 20.5 Calcium 9.1 8.5-10.1 mg/dL Performing Lab: see note ML - [facility] LB CBC AUTO DIFF Reviewed date:06/06/2024 09:18:06 PM Interpretation: Performing Lab: Notes/Report: [facility] , White Blood Count 9.3 4.0-11.0 10 3/uL Red Blood Count 5.81 4.20-5.40 10 6/uL Hemoglobin 14.6 12.0-16.0 g/dL Hematocrit 46.2 36.0-48.0 % Mean Corpuscular Volume 79.5 81.0-99.0 fL Mean Corpuscular Hemoglobin 25.1 26.7-34.0 pg Mean Corpuscular HGB Conc 31.6 29.9-35.2 g/dL Red Cell Distribution Width 15.9 11.0-15.0 % Platelet Count 328 150-450 10 3/uL Mean Platelet Volume 9.8 9.5-13.5 fL Neutrophils Percent Auto 57.0 43.0-75.0 % Lymphocytes Percent Auto 20.3 20.5-60.0 % Monocytes Percent Auto 11.6 1.7-12.0 % Eosinophils Percent Auto 6.2 0.9-7.0 % Basophils Percent Auto 1.1 0.2-2.0 % Immature Granulocytes Pct Auto 3.8 0.0-0.5 % Neutrophils Absolute Auto 5.3 1.4-6.5 10 3/uL Lymphocytes Absolute Auto 1.9 1.2-3.8 10 3/uL Monocytes Absolute Auto 1.1 0.3-0.8 10 3/uL Eosinophils Absolute Auto 0.6 0.0-0.7 10 3/uL Basophils Absolute Auto 0.1 0.0-0.1 10 3/uL Immature Granulocytes Abs Auto 0.35 0.00-0.03 10 3/uL Performing Lab: see note ML - [facility] LB CRP Reviewed date:06/06/2024 09:18:06 PM Interpretation: Performing Lab: Notes/Report: [facility] , C Reactive Protein 9.36 <=0.50 mg/dL Performing Lab: see note - [facility] PROF CHEM 8 (BAS METB) Reviewed date:06/06/2024 09:18:06 PM Interpretation: Performing Lab: Notes/Report: [facility] , Sodium 135 136-145 mmol/L Potassium 4.3 3.5-5.1 mmol/L Chloride 99 98-107 mmol/L Carbon Dioxide 28.4 21.0-32.0 mmol/L Anion Gap 11.9 Glucose 123 74-106 mg/dL Blood Urea Nitrogen 23.0 7.0-18.0 mg/dL Creatinine 0.84 0.55-1.02 mg/dL Estimated GFR ( Eneida >60 >=60 mL/min/1.73m 2 Estimated GFR (Non- Charley >60 >=60 mL/min/1.73m 2 BUN Creatinine Ratio 27.4 Calcium 9.3 8.5-10.1 mg/dL Performing Lab: see note - [facility] PROF CHEM 8 (BAS METB) Reviewed date:06/03/2024 11:04:29 AM Interpretation: Performing Lab: Notes/Report: [facility] , Sodium 135 136-145 mmol/L Potassium 4.1 3.5-5.1 mmol/L Chloride 97 98-107 mmol/L Carbon Dioxide 28.7 21.0-32.0 mmol/L Anion Gap 13.4 Glucose 114 74-106 mg/dL Blood Urea Nitrogen 22.0 7.0-18.0 mg/dL Creatinine 0.88 0.55-1.02 mg/dL Estimated GFR ( Eneida >60 >=60 mL/min/1.73m 2 Estimated GFR (Non- Charley >60 >=60 mL/min/1.73m 2 BUN Creatinine Ratio 25.0 Calcium 9.4 8.5-10.1 mg/dL Performing Lab: see note - [facility] CRP Reviewed date:06/03/2024 11:04:29 AM Interpretation: Performing Lab: Notes/Report: [facility] , C Reactive Protein 28.73 <=0.50 mg/dL Performing Lab: see note ML - [facility] LB CBC AUTO DIFF Reviewed date:06/03/2024 11:04:29 AM Interpretation: Performing Lab: Notes/Report: [facility] , White Blood Count 13.1 4.0-11.0 10 3/uL Red Blood Count 5.69 4.20-5.40 10 6/uL Hemoglobin 14.3 12.0-16.0 g/dL Hematocrit 45.3 36.0-48.0 % Mean Corpuscular Volume 79.6 81.0-99.0 fL Mean Corpuscular Hemoglobin 25.1 26.7-34.0 pg Mean Corpuscular HGB Conc 31.6 29.9-35.2 g/dL Red Cell Distribution Width 15.7 11.0-15.0 % Platelet Count 291 150-450 10 3/uL Mean Platelet Volume 10.2 9.5-13.5 fL Neutrophils Percent Auto 74.4 43.0-75.0 % Lymphocytes Percent Auto 10.6 20.5-60.0 % Monocytes Percent Auto 8.7 1.7-12.0 % Eosinophils Percent Auto 3.9 0.9-7.0 % Basophils Percent Auto 0.5 0.2-2.0 % Immature Granulocytes Pct Auto 1.9 0.0-0.5 % Neutrophils Absolute Auto 9.7 1.4-6.5 10 3/uL Lymphocytes Absolute Auto 1.4 1.2-3.8 10 3/uL Monocytes Absolute Auto 1.1 0.3-0.8 10 3/uL Eosinophils Absolute Auto 0.5 0.0-0.7 10 3/uL Basophils Absolute Auto 0.1 0.0-0.1 10 3/uL Immature Granulocytes Abs Auto 0.25 0.00-0.03 10 3/uL Performing Lab: see note - [facility] LB Aerobic Culture (Not yet rev iewed by provider) Interpretation: Performing Lab: Notes/Report: [facility] , Aerobic Culture See Below For Report Aerobic Culture Organism: Staphylococcus aureus : O:BETAGC Isolated O:STAAUR Isolated Organism: 2.2 Antibiotic Interpretation MARIA ELENA Status Ciprofloxacin Ciprofloxacin S F Erythromycin Erythromycin S F Gentamicin Gentamicin S F Levofloxacin Levofloxacin S F Linezolid Linezolid S F Moxifloxacin Moxifloxacin S F Oxacillin Oxacillin S F Penicillin Penicillin R F Rifampin Rifampin S F Tetracycline Tetracycline S F Trimethoprim/Sulfamet hoxazole Trimethoprim/Sulfamet hoxazole S F Vancomycin Vancomycin S F Clindamycin Clindamycin S F Aerobic Culture *ABNORMAL* Aerobic Culture Organism: Staphylococcus aureus : O:BETAGC Isolated O:STAAUR Isolated Organism: 2.2 Antibiotic Interpretation MARIA ELENA Status Ciprofloxacin Ciprofloxacin S F Erythromycin Erythromycin S F Gentamicin Gentamicin S F Levofloxacin Levofloxacin S F Linezolid Linezolid S F Moxifloxacin Moxifloxacin S F Oxacillin Oxacillin S F Penicillin Penicillin R F Rifampin Rifampin S F Tetracycline Tetracycline S F Trimethoprim/Sulfamet hoxazole Trimethoprim/Sulfamet hoxazole S F Vancomycin Vancomycin S F Clindamycin Clindamycin S F Aerobic Culture Heavy growth Aerobic Culture Organism: Staphylococcus aureus : O:BETAGC Isolated O:STAAUR Isolated Organism: 2.2 Antibiotic Interpretation MARIA ELENA Status Ciprofloxacin Ciprofloxacin S F Erythromycin Erythromycin S F Gentamicin Gentamicin S F Levofloxacin Levofloxacin S F Linezolid Linezolid S F Moxifloxacin Moxifloxacin S F Oxacillin Oxacillin S F Penicillin Penicillin R F Rifampin Rifampin S F Tetracycline Tetracycline S F Trimethoprim/Sulfamet hoxazole Trimethoprim/Sulfamet hoxazole S F Vancomycin Vancomycin S F Clindamycin Clindamycin S F Aerobic Culture Staphylococcus aureus Aerobic Culture Organism: Staphylococcus aureus : O:BETAGC Isolated O:STAR Isolated Organism: 2.2 Antibiotic Interpretation MARIA ELENA Status Ciprofloxacin Ciprofloxacin S F Erythromycin Erythromycin S F Gentamicin Gentamicin S F Levofloxacin Levofloxacin S F Linezolid Linezolid S F Moxifloxacin Moxifloxacin S F Oxacillin Oxacillin S F Penicillin Penicillin R F Rifampin Rifampin S F Tetracycline Tetracycline S F Trimethoprim/Sulfamet hoxazole Trimethoprim/Sulfamet hoxazole S F Vancomycin Vancomycin S F Clindamycin Clindamycin S F Aerobic Culture Organism: Staphyloco ccus aureus : Aerobic Culture Organism: Staphylococcus aureus : O:BETAGC Isolated O:STAR Isolated Organism: 2.2 Antibiotic Interpretation MARIA ELENA Status Ciprofloxacin Ciprofloxacin S F Erythromycin Erythromycin S F Gentamicin Gentamicin S F Levofloxacin Levofloxacin S F Linezolid Linezolid S F Moxifloxacin Moxifloxacin S F Oxacillin Oxacillin S F Penicillin Penicillin R F Rifampin Rifampin S F Tetracycline Tetracycline S F Trimethoprim/Sulfamet hoxazole Trimethoprim/Sulfamet hoxazole S F Vancomycin Vancomycin S F Clindamycin Clindamycin S F Aerobic Culture *ABNORMAL* Aerobic Culture Organism: Staphylococcus aureus : O:BETAGC Isolated O:STAAUR Isolated Organism: 2.2 Antibiotic Interpretation MARIA ELENA Status Ciprofloxacin Ciprofloxacin S F Erythromycin Erythromycin S F Gentamicin Gentamicin S F Levofloxacin Levofloxacin S F Linezolid Linezolid S F Moxifloxacin Moxifloxacin S F Oxacillin Oxacillin S F Penicillin Penicillin R F Rifampin Rifampin S F Tetracycline Tetracycline S F Trimethoprim/Sulfamet hoxazole Trimethoprim/Sulfamet hoxazole S F Vancomycin Vancomycin S F Clindamycin Clindamycin S F Aerobic Culture Based on susceptibil ity to oxacillin this isolate would be Aerobic Culture Organism: Staphylococcus aureus : O:BETAGC Isolated O:STAAUR Isolated Organism: 2.2 Antibiotic Interpretation MARIA ELENA Status Ciprofloxacin Ciprofloxacin S F Erythromycin Erythromycin S F Gentamicin Gentamicin S F Levofloxacin Levofloxacin S F Linezolid Linezolid S F Moxifloxacin Moxifloxacin S F Oxacillin Oxacillin S F Penicillin Penicillin R F Rifampin Rifampin S F Tetracycline Tetracycline S F Trimethoprim/Sulfamet hoxazole Trimethoprim/Sulfamet hoxazole S F Vancomycin Vancomycin S F Clindamycin Clindamycin S F Aerobic Culture susceptible to: Aerobic Culture Organism: Staphylococcus aureus : O:BETAGC Isolated O:STAAUR Isolated Organism: 2.2 Antibiotic Interpretation MARIA ELENA Status Ciprofloxacin Ciprofloxacin S F Erythromycin Erythromycin S F Gentamicin Gentamicin S F Levofloxacin Levofloxacin S F Linezolid Linezolid S F Moxifloxacin Moxifloxacin S F Oxacillin Oxacillin S F Penicillin Penicillin R F Rifampin Rifampin S F Tetracycline Tetracycline S F Trimethoprim/Sulfamet hoxazole Trimethoprim/Sulfamet hoxazole S F Vancomycin Vancomycin S F Clindamycin Clindamycin S F Aerobic Culture *Penicillinase-stabl e penicillins, such as: Aerobic Culture Organism: Staphylococcus aureus : O:BETAGC Isolated O:STAAUR Isolated Organism: 2.2 Antibiotic Interpretation MARIA ELENA Status Ciprofloxacin Ciprofloxacin S F Erythromycin Erythromycin S F Gentamicin Gentamicin S F Levofloxacin Levofloxacin S F Linezolid Linezolid S F Moxifloxacin Moxifloxacin S F Oxacillin Oxacillin S F Penicillin Penicillin R F Rifampin Rifampin S F Tetracycline Tetracycline S F Trimethoprim/Sulfamet hoxazole Trimethoprim/Sulfamet hoxazole S F Vancomycin Vancomycin S F Clindamycin Clindamycin S F Aerobic Culture Cloxacillin, Dicloxacillin, Nafcillin Aerobic Culture Organism: Staphylococcus aureus : O:BETAGC Isolated O:STAAUR Isolated Organism: 2.2 Antibiotic Interpretation MARIA ELENA Status Ciprofloxacin Ciprofloxacin S F Erythromycin Erythromycin S F Gentamicin Gentamicin S F Levofloxacin Levofloxacin S F Linezolid Linezolid S F Moxifloxacin Moxifloxacin S F Oxacillin Oxacillin S F Penicillin Penicillin R F Rifampin Rifampin S F Tetracycline Tetracycline S F Trimethoprim/Sulfamet hoxazole Trimethoprim/Sulfamet hoxazole S F Vancomycin Vancomycin S F Clindamycin Clindamycin S F Aerobic Culture *Beta-lactam combina tion agents, such as: Aerobic Culture Organism: Staphylococcus aureus : O:BETAGC Isolated O:STAAUR Isolated Organism: 2.2 Antibiotic Interpretation MARIA ELENA Status Ciprofloxacin Ciprofloxacin S F Erythromycin Erythromycin S F Gentamicin Gentamicin S F Levofloxacin Levofloxacin S F Linezolid Linezolid S F Moxifloxacin Moxifloxacin S F Oxacillin Oxacillin S F Penicillin Penicillin R F Rifampin Rifampin S F Tetracycline Tetracycline S F Trimethoprim/Sulfamet hoxazole Trimethoprim/Sulfamet hoxazole S F Vancomycin Vancomycin S F Clindamycin Clindamycin S F Aerobic Culture Amoxicillin-clavulan ic acid, Ampicillin-sulbactam, Aerobic Culture Organism: Staphylococcus aureus : O:BETAGC Isolated O:STAAUR Isolated Organism: 2.2 Antibiotic Interpretation MARIA ELENA Status Ciprofloxacin Ciprofloxacin S F Erythromycin Erythromycin S F Gentamicin Gentamicin S F Levofloxacin Levofloxacin S F Linezolid Linezolid S F Moxifloxacin Moxifloxacin S F Oxacillin Oxacillin S F Penicillin Penicillin R F Rifampin Rifampin S F Tetracycline Tetracycline S F Trimethoprim/Sulfamet hoxazole Trimethoprim/Sulfamet hoxazole S F Vancomycin Vancomycin S F Clindamycin Clindamycin S F Aerobic Culture Piperacillin-tazobactam Aerobic Culture Organism: Staphylococcus aureus : O:BETAGC Isolated O:STAAUR Isolated Organism: 2.2 Antibiotic Interpretation MARIA ELENA Status Ciprofloxacin Ciprofloxacin S F Erythromycin Erythromycin S F Gentamicin Gentamicin S F Levofloxacin Levofloxacin S F Linezolid Linezolid S F Moxifloxacin Moxifloxacin S F Oxacillin Oxacillin S F Penicillin Penicillin R F Rifampin Rifampin S F Tetracycline Tetracycline S F Trimethoprim/Sulfamet hoxazole Trimethoprim/Sulfamet hoxazole S F Vancomycin Vancomycin S F Clindamycin Clindamycin S F Aerobic Culture *Oral cephems, such as: Aerobic Culture Organism: Staphylococcus aureus : O:BETAGC Isolated O:STAAUR Isolated Organism: 2.2 Antibiotic Interpretation MARIA ELENA Status Ciprofloxacin Ciprofloxacin S F Erythromycin Erythromycin S F Gentamicin Gentamicin S F Levofloxacin Levofloxacin S F Linezolid Linezolid S F Moxifloxacin Moxifloxacin S F Oxacillin Oxacillin S F Penicillin Penicillin R F Rifampin Rifampin S F Tetracycline Tetracycline S F Trimethoprim/Sulfamet hoxazole Trimethoprim/Sulfamet hoxazole S F Vancomycin Vancomycin S F Clindamycin Clindamycin S F Aerobic Culture Cefaclor, Cefdinir, Cefpodoxime, Cefprozil, Cefuroxime, Aerobic Culture Organism: Staphylococcus aureus : O:BETAGC Isolated O:STAAUR Isolated Organism: 2.2 Antibiotic Interpretation MARIA ELENA Status Ciprofloxacin Ciprofloxacin S F Erythromycin Erythromycin S F Gentamicin Gentamicin S F Levofloxacin Levofloxacin S F Linezolid Linezolid S F Moxifloxacin Moxifloxacin S F Oxacillin Oxacillin S F Penicillin Penicillin R F Rifampin Rifampin S F Tetracycline Tetracycline S F Trimethoprim/Sulfamet hoxazole Trimethoprim/Sulfamet hoxazole S F Vancomycin Vancomycin S F Clindamycin Clindamycin S F Aerobic Culture Cephalexin, Loracarbef Aerobic Culture Organism: Staphylococcus aureus : O:BETAGC Isolated O:STAAUR Isolated Organism: 2.2 Antibiotic Interpretation MARIA ELENA Status Ciprofloxacin Ciprofloxacin S F Erythromycin Erythromycin S F Gentamicin Gentamicin S F Levofloxacin Levofloxacin S F Linezolid Linezolid S F Moxifloxacin Moxifloxacin S F Oxacillin Oxacillin S F Penicillin Penicillin R F Rifampin Rifampin S F Tetracycline Tetracycline S F Trimethoprim/Sulfamet hoxazole Trimethoprim/Sulfamet hoxazole S F Vancomycin Vancomycin S F Clindamycin Clindamycin S F Aerobic Culture *Parenteral cephems, such as: Aerobic Culture Organism: Staphylococcus aureus : O:BETAGC Isolated O:STAAUR Isolated Organism: 2.2 Antibiotic Interpretation MARIA ELENA Status Ciprofloxacin Ciprofloxacin S F Erythromycin Erythromycin S F Gentamicin Gentamicin S F Levofloxacin Levofloxacin S F Linezolid Linezolid S F Moxifloxacin Moxifloxacin S F Oxacillin Oxacillin S F Penicillin Penicillin R F Rifampin Rifampin S F Tetracycline Tetracycline S F Trimethoprim/Sulfamet hoxazole Trimethoprim/Sulfamet hoxazole S F Vancomycin Vancomycin S F Clindamycin Clindamycin S F Aerobic Culture Cefazolin, Cefepime, Cefotaxime, Cefotetan, Ceftaroline, Aerobic Culture Organism: Staphylococcus aureus : O:BETAGC Isolated O:STAAUR Isolated Organism: 2.2 Antibiotic Interpretation MARIA ELENA Status Ciprofloxacin Ciprofloxacin S F Erythromycin Erythromycin S F Gentamicin Gentamicin S F Levofloxacin Levofloxacin S F Linezolid Linezolid S F Moxifloxacin Moxifloxacin S F Oxacillin Oxacillin S F Penicillin Penicillin R F Rifampin Rifampin S F Tetracycline Tetracycline S F Trimethoprim/Sulfamet hoxazole Trimethoprim/Sulfamet hoxazole S F Vancomycin Vancomycin S F Clindamycin Clindamycin S F Aerobic Culture Ceftizoxime, Ceftria xone, Cefuroxime Aerobic Culture Organism: Staphylococcus aureus : O:BETAGC Isolated O:STAAUR Isolated Organism: 2.2 Antibiotic Interpretation MARIA ELENA Status Ciprofloxacin Ciprofloxacin S F Erythromycin Erythromycin S F Gentamicin Gentamicin S F Levofloxacin Levofloxacin S F Linezolid Linezolid S F Moxifloxacin Moxifloxacin S F Oxacillin Oxacillin S F Penicillin Penicillin R F Rifampin Rifampin S F Tetracycline Tetracycline S F Trimethoprim/Sulfamet hoxazole Trimethoprim/Sulfamet hoxazole S F Vancomycin Vancomycin S F Clindamycin Clindamycin S F Aerobic Culture *Carbapenems, such as: Aerobic Culture Organism: Staphylococcus aureus : O:BETAGC Isolated O:STAAUR Isolated Organism: 2.2 Antibiotic Interpretation MARIA ELENA Status Ciprofloxacin Ciprofloxacin S F Erythromycin Erythromycin S F Gentamicin Gentamicin S F Levofloxacin Levofloxacin S F Linezolid Linezolid S F Moxifloxacin Moxifloxacin S F Oxacillin Oxacillin S F Penicillin Penicillin R F Rifampin Rifampin S F Tetracycline Tetracycline S F Trimethoprim/Sulfamet hoxazole Trimethoprim/Sulfamet hoxazole S F Vancomycin Vancomycin S F Clindamycin Clindamycin S F Aerobic Culture Doripenem, Ertapenem , Imipenem, Meropenem Aerobic Culture Organism: Staphylococcus aureus : O:BETAGC Isolated O:STAAUR Isolated Organism: 2.2 Antibiotic Interpretation MARIA ELENA Status Ciprofloxacin Ciprofloxacin S F Erythromycin Erythromycin S F Gentamicin Gentamicin S F Levofloxacin Levofloxacin S F Linezolid Linezolid S F Moxifloxacin Moxifloxacin S F Oxacillin Oxacillin S F Penicillin Penicillin R F Rifampin Rifampin S F Tetracycline Tetracycline S F Trimethoprim/Sulfamet hoxazole Trimethoprim/Sulfamet hoxazole S F Vancomycin Vancomycin S F Clindamycin Clindamycin S F Aerobic Culture Heavy growth Aerobic Culture Organism: Staphylococcus aureus : O:BETAGC Isolated O:STAAUR Isolated Organism: 2.2 Antibiotic Interpretation MARIA ELENA Status Ciprofloxacin Ciprofloxacin S F Erythromycin Erythromycin S F Gentamicin Gentamicin S F Levofloxacin Levofloxacin S F Linezolid Linezolid S F Moxifloxacin Moxifloxacin S F Oxacillin Oxacillin S F Penicillin Penicillin R F Rifampin Rifampin S F Tetracycline Tetracycline S F Trimethoprim/Sulfamet hoxazole Trimethoprim/Sulfamet hoxazole S F Vancomycin Vancomycin S F Clindamycin Clindamycin S F Aerobic Culture Organism: Beta hemol ytic Strep group C : Aerobic Culture Organism: Staphylococcus aureus : O:BETAGC Isolated O:STAAUR Isolated Organism: 2.2 Antibiotic Interpretation MARIA ELENA Status Ciprofloxacin Ciprofloxacin S F Erythromycin Erythromycin S F Gentamicin Gentamicin S F Levofloxacin Levofloxacin S F Linezolid Linezolid S F Moxifloxacin Moxifloxacin S F Oxacillin Oxacillin S F Penicillin Penicillin R F Rifampin Rifampin S F Tetracycline Tetracycline S F Trimethoprim/Sulfamet hoxazole Trimethoprim/Sulfamet hoxazole S F Vancomycin Vancomycin S F Clindamycin Clindamycin S F Aerobic Culture *ABNORMAL* Aerobic Culture Organism: Staphylococcus aureus : O:BETAGC Isolated O:STAAUR Isolated Organism: 2.2 Antibiotic Interpretation MARIA ELENA Status Ciprofloxacin Ciprofloxacin S F Erythromycin Erythromycin S F Gentamicin Gentamicin S F Levofloxacin Levofloxacin S F Linezolid Linezolid S F Moxifloxacin Moxifloxacin S F Oxacillin Oxacillin S F Penicillin Penicillin R F Rifampin Rifampin S F Tetracycline Tetracycline S F Trimethoprim/Sulfamet hoxazole Trimethoprim/Sulfamet hoxazole S F Vancomycin Vancomycin S F Clindamycin Clindamycin S F Aerobic Culture Heavy growth Aerobic Culture Organism: Staphylococcus aureus : O:BETAGC Isolated O:STAAUR Isolated Organism: 2.2 Antibiotic Interpretation MARIA ELENA Status Ciprofloxacin Ciprofloxacin S F Erythromycin Erythromycin S F Gentamicin Gentamicin S F Levofloxacin Levofloxacin S F Linezolid Linezolid S F Moxifloxacin Moxifloxacin S F Oxacillin Oxacillin S F Penicillin Penicillin R F Rifampin Rifampin S F Tetracycline Tetracycline S F Trimethoprim/Sulfamet hoxazole Trimethoprim/Sulfamet hoxazole S F Vancomycin Vancomycin S F Clindamycin Clindamycin S F Aerobic Culture Penicillin and ampic illin are drugs of choice for Aerobic Culture Organism: Staphylococcus aureus : O:BETAGC Isolated O:STAAUR Isolated Organism: 2.2 Antibiotic Interpretation MARIA ELENA Status Ciprofloxacin Ciprofloxacin S F Erythromycin Erythromycin S F Gentamicin Gentamicin S F Levofloxacin Levofloxacin S F Linezolid Linezolid S F Moxifloxacin Moxifloxacin S F Oxacillin Oxacillin S F Penicillin Penicillin R F Rifampin Rifampin S F Tetracycline Tetracycline S F Trimethoprim/Sulfamet hoxazole Trimethoprim/Sulfamet hoxazole S F Vancomycin Vancomycin S F Clindamycin Clindamycin S F Aerobic Culture treatment of beta-hemolytic streptococcal infections. Aerobic Culture Organism: Staphylococcus aureus : O:BETAGC Isolated O:STAAUR Isolated Organism: 2.2 Antibiotic Interpretation MARIA ELENA Status Ciprofloxacin Ciprofloxacin S F Erythromycin Erythromycin S F Gentamicin Gentamicin S F Levofloxacin Levofloxacin S F Linezolid Linezolid S F Moxifloxacin Moxifloxacin S F Oxacillin Oxacillin S F Penicillin Penicillin R F Rifampin Rifampin S F Tetracycline Tetracycline S F Trimethoprim/Sulfamet hoxazole Trimethoprim/Sulfamet hoxazole S F Vancomycin Vancomycin S F Clindamycin Clindamycin S F Aerobic Culture Susceptibility testi ng of penicillins and other beta- Aerobic Culture Organism: Staphylococcus aureus : O:BETAGC Isolated O:STAAUR Isolated Organism: 2.2 Antibiotic Interpretation MARIA ELENA Status Ciprofloxacin Ciprofloxacin S F Erythromycin Erythromycin S F Gentamicin Gentamicin S F Levofloxacin Levofloxacin S F Linezolid Linezolid S F Moxifloxacin Moxifloxacin S F Oxacillin Oxacillin S F Penicillin Penicillin R F Rifampin Rifampin S F Tetracycline Tetracycline S F Trimethoprim/Sulfamet hoxazole Trimethoprim/Sulfamet hoxazole S F Vancomycin Vancomycin S F Clindamycin Clindamycin S F Aerobic Culture lactam agents approv ed by the FDA for treatment of Aerobic Culture Organism: Staphylococcus aureus : O:BETAGC Isolated O:STAAUR Isolated Organism: 2.2 Antibiotic Interpretation MARIA ELENA Status Ciprofloxacin Ciprofloxacin S F Erythromycin Erythromycin S F Gentamicin Gentamicin S F Levofloxacin Levofloxacin S F Linezolid Linezolid S F Moxifloxacin Moxifloxacin S F Oxacillin Oxacillin S F Penicillin Penicillin R F Rifampin Rifampin S F Tetracycline Tetracycline S F Trimethoprim/Sulfamet hoxazole Trimethoprim/Sulfamet hoxazole S F Vancomycin Vancomycin S F Clindamycin Clindamycin S F Aerobic Culture beta-hemolytic streptococcal infections need not be Aerobic Culture Organism: Staphylococcus aureus : O:BETAGC Isolated O:STAAUR Isolated Organism: 2.2 Antibiotic Interpretation MARIA ELENA Status Ciprofloxacin Ciprofloxacin S F Erythromycin Erythromycin S F Gentamicin Gentamicin S F Levofloxacin Levofloxacin S F Linezolid Linezolid S F Moxifloxacin Moxifloxacin S F Oxacillin Oxacillin S F Penicillin Penicillin R F Rifampin Rifampin S F Tetracycline Tetracycline S F Trimethoprim/Sulfamet hoxazole Trimethoprim/Sulfamet hoxazole S F Vancomycin Vancomycin S F Clindamycin Clindamycin S F Aerobic Culture performed routinely because nonsusceptible isolates Aerobic Culture Organism: Staphylococcus aureus : O:BETAGC Isolated O:STAAUR Isolated Organism: 2.2 Antibiotic Interpretation MARIA ELENA Status Ciprofloxacin Ciprofloxacin S F Erythromycin Erythromycin S F Gentamicin Gentamicin S F Levofloxacin Levofloxacin S F Linezolid Linezolid S F Moxifloxacin Moxifloxacin S F Oxacillin Oxacillin S F Penicillin Penicillin R F Rifampin Rifampin S F Tetracycline Tetracycline S F Trimethoprim/Sulfamet hoxazole Trimethoprim/Sulfamet hoxazole S F Vancomycin Vancomycin S F Clindamycin Clindamycin S F Aerobic Culture are extremely rare i n any beta-hemolytic streptococcus Aerobic Culture Organism: Staphylococcus aureus : O:BETAGC Isolated O:STAAUR Isolated Organism: 2.2 Antibiotic Interpretation MARIA ELENA Status Ciprofloxacin Ciprofloxacin S F Erythromycin Erythromycin S F Gentamicin Gentamicin S F Levofloxacin Levofloxacin S F Linezolid Linezolid S F Moxifloxacin Moxifloxacin S F Oxacillin Oxacillin S F Penicillin Penicillin R F Rifampin Rifampin S F Tetracycline Tetracycline S F Trimethoprim/Sulfamet hoxazole Trimethoprim/Sulfamet hoxazole S F Vancomycin Vancomycin S F Clindamycin Clindamycin S F Aerobic Culture and have not been reported for Streptococcus pyogenes Aerobic Culture Organism: Staphylococcus aureus : O:BETAGC Isolated O:STAAUR Isolated Organism: 2.2 Antibiotic Interpretation MARIA ELENA Status Ciprofloxacin Ciprofloxacin S F Erythromycin Erythromycin S F Gentamicin Gentamicin S F Levofloxacin Levofloxacin S F Linezolid Linezolid S F Moxifloxacin Moxifloxacin S F Oxacillin Oxacillin S F Penicillin Penicillin R F Rifampin Rifampin S F Tetracycline Tetracycline S F Trimethoprim/Sulfamet hoxazole Trimethoprim/Sulfamet hoxazole S F Vancomycin Vancomycin S F Clindamycin Clindamycin S F Aerobic Culture (group A). (CLSI) Aerobic Culture Organism: Staphylococcus aureus : O:BETAGC Isolated O:STAAUR Isolated Organism: 2.2 Antibiotic Interpretation MARIA ELENA Status Ciprofloxacin Ciprofloxacin S F Erythromycin Erythromycin S F Gentamicin Gentamicin S F Levofloxacin Levofloxacin S F Linezolid Linezolid S F Moxifloxacin Moxifloxacin S F Oxacillin Oxacillin S F Penicillin Penicillin R F Rifampin Rifampin S F Tetracycline Tetracycline S F Trimethoprim/Sulfamet hoxazole Trimethoprim/Sulfamet hoxazole S F Vancomycin Vancomycin S F Clindamycin Clindamycin S F Aerobic Culture Beta hemolytic Strep group C Aerobic Culture Organism: Staphylococcus aureus : O:BETAGC Isolated O:STAAUR Isolated Organism: 2.2 Antibiotic Interpretation MARIA ELENA Status Ciprofloxacin Ciprofloxacin S F Erythromycin Erythromycin S F Gentamicin Gentamicin S F Levofloxacin Levofloxacin S F Linezolid Linezolid S F Moxifloxacin Moxifloxacin S F Oxacillin Oxacillin S F Penicillin Penicillin R F Rifampin Rifampin S F Tetracycline Tetracycline S F Trimethoprim/Sulfamet hoxazole Trimethoprim/Sulfamet hoxazole S F Vancomycin Vancomycin S F Clindamycin Clindamycin S F Aerobic Culture See Below For Report Aerobic Culture Organism: Staphylococcus aureus : O:BETAGC Isolated O:STAAUR Isolated Organism: 2.2 Antibiotic Interpretation MARIA ELENA Status Ciprofloxacin Ciprofloxacin S F Erythromycin Erythromycin S F Gentamicin Gentamicin S F Levofloxacin Levofloxacin S F Linezolid Linezolid S F Moxifloxacin Moxifloxacin S F Oxacillin Oxacillin S F Penicillin Penicillin R F Rifampin Rifampin S F Tetracycline Tetracycline S F Trimethoprim/Sulfamet hoxazole Trimethoprim/Sulfamet hoxazole S F Vancomycin Vancomycin S F Clindamycin Clindamycin S F Aerobic Culture See Below For Report Aerobic Culture Organism: Staphylococcus aureus : O:BETAGC Isolated O:STAAUR Isolated Organism: 2.2 Antibiotic Interpretation MARIA ELENA Status Ciprofloxacin Ciprofloxacin S F Erythromycin Erythromycin S F Gentamicin Gentamicin S F Levofloxacin Levofloxacin S F Linezolid Linezolid S F Moxifloxacin Moxifloxacin S F Oxacillin Oxacillin S F Penicillin Penicillin R F Rifampin Rifampin S F Tetracycline Tetracycline S F Trimethoprim/Sulfamet hoxazole Trimethoprim/Sulfamet hoxazole S F Vancomycin Vancomycin S F Clindamycin Clindamycin S F Aerobic Culture Performed at: [facility] Aerobic Culture Organism: Staphylococcus aureus : O:BETAGC Isolated O:STAAUR Isolated Organism: 2.2 Antibiotic Interpretation MARIA ELENA Status Ciprofloxacin Ciprofloxacin S F Erythromycin Erythromycin S F Gentamicin Gentamicin S F Levofloxacin Levofloxacin S F Linezolid Linezolid S F Moxifloxacin Moxifloxacin S F Oxacillin Oxacillin S F Penicillin Penicillin R F Rifampin Rifampin S F Tetracycline Tetracycline S F Trimethoprim/Sulfamet hoxazole Trimethoprim/Sulfamet hoxazole S F Vancomycin Vancomycin S F Clindamycin Clindamycin S F Aerobic Culture [address], [place] [id number] Aerobic Culture Organism: Staphylococcus aureus : O:BETAGC Isolated O:STAAUR Isolated Organism: 2.2 Antibiotic Interpretation MARIA ELENA Status Ciprofloxacin Ciprofloxacin S F Erythromycin Erythromycin S F Gentamicin Gentamicin S F Levofloxacin Levofloxacin S F Linezolid Linezolid S F Moxifloxacin Moxifloxacin S F Oxacillin Oxacillin S F Penicillin Penicillin R F Rifampin Rifampin S F Tetracycline Tetracycline S F Trimethoprim/Sulfamet hoxazole Trimethoprim/Sulfamet hoxazole S F Vancomycin Vancomycin S F Clindamycin Clindamycin S F Aerobic Culture Supervisor Mill: Torey Duncan PhD, Phone: [phone] Aerobic Culture Organism: Staphylococcus aureus : O:BETAGC Isolated O:STAAUR Isolated Organism: 2.2 Antibiotic Interpretation MARIA ELENA Status Ciprofloxacin Ciprofloxacin S F Erythromycin Erythromycin S F Gentamicin Gentamicin S F Levofloxacin Levofloxacin S F Linezolid Linezolid S F Moxifloxacin Moxifloxacin S F Oxacillin Oxacillin S F Penicillin Penicillin R F Rifampin Rifampin S F Tetracycline Tetracycline S F Trimethoprim/Sulfamet hoxazole Trimethoprim/Sulfamet hoxazole S F Vancomycin Vancomycin S F Clindamycin Clindamycin S F Aerobic Culture See Below For Report Aerobic Culture Organism: Staphylococcus aureus : O:BETAGC Isolated O:STAAUR Isolated Organism: 2.2 Antibiotic Interpretation MARIA ELENA Status Ciprofloxacin Ciprofloxacin S F Erythromycin Erythromycin S F Gentamicin Gentamicin S F Levofloxacin Levofloxacin S F Linezolid Linezolid S F Moxifloxacin Moxifloxacin S F Oxacillin Oxacillin S F Penicillin Penicillin R F Rifampin Rifampin S F Tetracycline Tetracycline S F Trimethoprim/Sulfamet hoxazole Trimethoprim/Sulfamet hoxazole S F Vancomycin Vancomycin S F Clindamycin Clindamycin S F Aerobic Culture See Below For Report Aerobic Culture Organism: Staphylococcus aureus : O:BETAGC Isolated O:STAAUR Isolated Organism: 2.2 Antibiotic Interpretation MARI AELENA Status Ciprofloxacin Ciprofloxacin S F Erythromycin Erythromycin S F Gentamicin Gentamicin S F Levofloxacin Levofloxacin S F Linezolid Linezolid S F Moxifloxacin Moxifloxacin S F Oxacillin Oxacillin S F Penicillin Penicillin R F Rifampin Rifampin S F Tetracycline Tetracycline S F Trimethoprim/Sulfamet hoxazole Trimethoprim/Sulfamet hoxazole S F Vancomycin Vancomycin S F Clindamycin Clindamycin S F Aerobic Culture See Below For Report Aerobic Culture Organism: Staphylococcus aureus : O:BETAGC Isolated O:STAAUR Isolated Organism: 2.2 Antibiotic Interpretation MARIA ELENA Status Ciprofloxacin Ciprofloxacin S F Erythromycin Erythromycin S F Gentamicin Gentamicin S F Levofloxacin Levofloxacin S F Linezolid Linezolid S F Moxifloxacin Moxifloxacin S F Oxacillin Oxacillin S F Penicillin Penicillin R F Rifampin Rifampin S F Tetracycline Tetracycline S F Trimethoprim/Sulfamet hoxazole Trimethoprim/Sulfamet hoxazole S F Vancomycin Vancomycin S F Clindamycin Clindamycin S F Aerobic Culture See Below For Report Aerobic Culture Organism: Staphylococcus aureus : O:BETAGC Isolated O:STAAUR Isolated Organism: 2.2 Antibiotic Interpretation MARIA ELENA Status Ciprofloxacin Ciprofloxacin S F Erythromycin Erythromycin S F Gentamicin Gentamicin S F Levofloxacin Levofloxacin S F Linezolid Linezolid S F Moxifloxacin Moxifloxacin S F Oxacillin Oxacillin S F Penicillin Penicillin R F Rifampin Rifampin S F Tetracycline Tetracycline S F Trimethoprim/Sulfamet hoxazole Trimethoprim/Sulfamet hoxazole S F Vancomycin Vancomycin S F Clindamycin Clindamycin S F Aerobic Culture See Below For Report Aerobic Culture Organism: Staphylococcus aureus : O:BETAGC Isolated O:STAAUR Isolated Organism: 2.2 Antibiotic Interpretation MARIA ELENA Status Ciprofloxacin Ciprofloxacin S F Erythromycin Erythromycin S F Gentamicin Gentamicin S F Levofloxacin Levofloxacin S F Linezolid Linezolid S F Moxifloxacin Moxifloxacin S F Oxacillin Oxacillin S F Penicillin Penicillin R F Rifampin Rifampin S F Tetracycline Tetracycline S F Trimethoprim/Sulfamet hoxazole Trimethoprim/Sulfamet hoxazole S F Vancomycin Vancomycin S F Clindamycin Clindamycin S F Aerobic Culture See Below For Report Aerobic Culture Organism: Staphylococcus aureus : O:BETAGC Isolated O:STAAUR Isolated Organism: 2.2 Antibiotic Interpretation MARIA ELENA Status Ciprofloxacin Ciprofloxacin S F Erythromycin Erythromycin S F Gentamicin Gentamicin S F Levofloxacin Levofloxacin S F Linezolid Linezolid S F Moxifloxacin Moxifloxacin S F Oxacillin Oxacillin S F Penicillin Penicillin R F Rifampin Rifampin S F Tetracycline Tetracycline S F Trimethoprim/Sulfamet hoxazole Trimethoprim/Sulfamet hoxazole S F Vancomycin Vancomycin S F Clindamycin Clindamycin S F Aerobic Culture See Below For Report Aerobic Culture Organism: Staphylococcus aureus : O:BETAGC Isolated O:STAR Isolated Organism: 2.2 Antibiotic Interpretation MARIA ELENA Status Ciprofloxacin Ciprofloxacin S F Erythromycin Erythromycin S F Gentamicin Gentamicin S F Levofloxacin Levofloxacin S F Linezolid Linezolid S F Moxifloxacin Moxifloxacin S F Oxacillin Oxacillin S F Penicillin Penicillin R F Rifampin Rifampin S F Tetracycline Tetracycline S F Trimethoprim/Sulfamet hoxazole Trimethoprim/Sulfamet hoxazole S F Vancomycin Vancomycin S F Clindamycin Clindamycin S F Aerobic Culture See Below For Report Aerobic Culture Organism: Staphylococcus aureus : O:BETAGC Isolated O:STAR Isolated Organism: 2.2 Antibiotic Interpretation MARIA ELENA Status Ciprofloxacin Ciprofloxacin S F Erythromycin Erythromycin S F Gentamicin Gentamicin S F Levofloxacin Levofloxacin S F Linezolid Linezolid S F Moxifloxacin Moxifloxacin S F Oxacillin Oxacillin S F Penicillin Penicillin R F Rifampin Rifampin S F Tetracycline Tetracycline S F Trimethoprim/Sulfamet hoxazole Trimethoprim/Sulfamet hoxazole S F Vancomycin Vancomycin S F Clindamycin Clindamycin S F Aerobic Culture See Below For Report Aerobic Culture Organism: Staphylococcus aureus : O:BETAGC Isolated O:STAAUR Isolated Organism: 2.2 Antibiotic Interpretation MARIA ELENA Status Ciprofloxacin Ciprofloxacin S F Erythromycin Erythromycin S F Gentamicin Gentamicin S F Levofloxacin Levofloxacin S F Linezolid Linezolid S F Moxifloxacin Moxifloxacin S F Oxacillin Oxacillin S F Penicillin Penicillin R F Rifampin Rifampin S F Tetracycline Tetracycline S F Trimethoprim/Sulfamet hoxazole Trimethoprim/Sulfamet hoxazole S F Vancomycin Vancomycin S F Clindamycin Clindamycin S F Aerobic Culture See Below For Report Aerobic Culture Organism: Staphylococcus aureus : O:BETAGC Isolated O:STAAUR Isolated Organism: 2.2 Antibiotic Interpretation MARIA ELENA Status Ciprofloxacin Ciprofloxacin S F Erythromycin Erythromycin S F Gentamicin Gentamicin S F Levofloxacin Levofloxacin S F Linezolid Linezolid S F Moxifloxacin Moxifloxacin S F Oxacillin Oxacillin S F Penicillin Penicillin R F Rifampin Rifampin S F Tetracycline Tetracycline S F Trimethoprim/Sulfamet hoxazole Trimethoprim/Sulfamet hoxazole S F Vancomycin Vancomycin S F Clindamycin Clindamycin S F Aerobic Culture See Below For Report Aerobic Culture Organism: Staphylococcus aureus : O:BETAGC [facility]olated [facility] Is[facility] Organism: 2.2 Antibiotic Interpretation MARIA ELENA Status Ciprofloxacin Ciprofloxacin S F Erythromycin Erythromycin S F Gentamicin Gentamicin S F Levofloxacin Levofloxacin S F Linezolid Linezolid S F Moxifloxacin Moxifloxacin S F Oxacillin Oxacillin S F Penicillin Penicillin R F Rifampin Rifampin S F Tetracycline Tetracycline S F Trimethoprim/Sulfamet hoxazole Trimethoprim/Sulfamet hoxazole S F Vancomycin Vancomycin S F Clindamycin Clindamycin S F Aerobic Culture See Below For Report Aerobic Culture Organism: Staphylococcus aureus : O:BETAGC Isolated O:[facility] Isolated Organism: 2.2 Antibiotic Interpretation MARIA ELENA Status Ciprofloxacin Ciprofloxacin S F Erythromycin Erythromycin S F Gentamicin Gentamicin S F Levofloxacin Levofloxacin S F Linezolid Linezolid S F Moxifloxacin Moxifloxacin S F Oxacillin Oxacillin S F Penicillin Penicillin R F Rifampin Rifampin S F Tetracycline Tetracycline S F Trimethoprim/Sulfamet hoxazole Trimethoprim/Sulfamet hoxazole S F Vancomycin Vancomycin S F Clindamycin Clindamycin S F Aerobic Culture See Below For Report Aerobic Culture Organism: Staphylococcus aureus : O:BETAGC Isolated O:STAAUR Isolated Organism: 2.2 Antibiotic Interpretation MARIA ELENA Status Ciprofloxacin Ciprofloxacin S F Erythromycin Erythromycin S F Gentamicin Gentamicin S F Levofloxacin Levofloxacin S F Linezolid Linezolid S F Moxifloxacin Moxifloxacin S F Oxacillin Oxacillin S F Penicillin Penicillin R F Rifampin Rifampin S F Tetracycline Tetracycline S F Trimethoprim/Sulfamet hoxazole Trimethoprim/Sulfamet hoxazole S F Vancomycin Vancomycin S F Clindamycin Clindamycin S F Aerobic Culture See Below For Report Aerobic Culture Organism: Staphylococcus aureus : O:BETAGC Isolated O:STAAUR Isolated Organism: 2.2 Antibiotic Interpretation MARIA ELENA Status Ciprofloxacin Ciprofloxacin S F Erythromycin Erythromycin S F Gentamicin Gentamicin S F Levofloxacin Levofloxacin S F Linezolid Linezolid S F Moxifloxacin Moxifloxacin S F Oxacillin Oxacillin S F Penicillin Penicillin R F Rifampin Rifampin S F Tetracycline Tetracycline S F Trimethoprim/Sulfamet hoxazole Trimethoprim/Sulfamet hoxazole S F Vancomycin Vancomycin S F Clindamycin Clindamycin S F Performing Lab: see note LC - [facility] LB SEE REPORT - Analytical Data Miner Id information not found for OBX-specific senior producer legend Anaerobic Culture (Not yet r eviewed by provider) Interpretation: Performing Lab: Notes/Report: [facility] , Anaerobic Culture See Below For Report Anaerobic Culture O:PREVSP Isolated Anaerobic Culture Specimen has been received and testing has been initiated. Anaerobic Culture O:PREVSP Isolated Anaerobic Culture Organism: Prevotella species : Anaerobic Culture O:PREVSP Isolated Anaerobic Culture *ABNORMAL* Anaerobic Culture O:PREVSP Isolated Anaerobic Culture Studies at [facility] have confirmed the Anaerobic Culture O:PREVSP Isolated Anaerobic Culture observations of [facility] who have demonstrated that Anaerobic Culture O:PREVSP Isolated Anaerobic Culture Prevotella, Porphyro monas and Bacteroides species Anaerobic Culture O:PREVSP Isolated Anaerobic Culture other than Bacteroid es fragilis group are routinely Anaerobic Culture O:PREVSP Isolated Anaerobic Culture susceptible to Cefox itin, Chloramphenicol, and Anaerobic Culture O:PREVSP Isolated Anaerobic Culture Metronidazole and ar e usually resistant to Penicillin. Anaerobic Culture O:PREVSP Isolated Anaerobic Culture Heavy growth Anaerobic Culture O:PREVSP Isolated Anaerobic Culture Prevotella species Anaerobic Culture O:PREVSP Isolated Anaerobic Culture See Below For Report Anaerobic Culture O:PREVSP Isolated Performing Lab: see note LC - [facility] LB XR ankle LT min 3V Reviewed date:06/04/2024 01:00:24 PM Interpretation: Performing Lab: Notes/Report: Source Facility: [place] [address] [place] [address] XRay Report Signed Patient: GEETA VANCE#: [id number] : 1970 Acct:[id number] Age/Sex: 53 / F ADM Date: 01/25/24 Loc: EC Attending Dr: Hilda Gentile D.P.M. Ordering Physician: Hilda Gentile D.P.M. Date of Service: 01/25/24 Procedure(s): XR ankle LT min 3V Accession Number(s): [id number] cc: Hilda Gentile D.P.M.; Physician,Non-Staff [employer] [facility] [place] [id number] Patient Name: GEETA VANCE MRN: [id number] date: 1970 Sex: F Assigned Patient Location: Current Patient Location: Accession/Order Number: [id number] Exam Date: 01/25/2024 09:34 Report Date: 01/26/2024 09:38 At the request of: HILDA GENTILE Procedure: XR ankle LT min 3V PROCEDURE: XR ankle LT min 3V COMPARISON: Right/10/16 HISTORY: LEFT ANKLE PAIN FINDINGS: BONES:Again demonstrated is a bone fragment along the expected course of the Achilles tendon likely representing an avulsion fracture along enthesopathic spurring of the posterior calcaneus. No fracture or dislocation. Moderate degenerative changes with joint space narrowing and marginal osteophyte formation SOFT TISSUES:Negative. No visible soft tissue swelling. EFFUSION:None visible. OTHER: Varicosities. XR/XR ankle LT min 3V IMPRESSION: Stable bone avulsion of the posterior calcaneus at the Achilles insertion Electronically authenticated by: PAUL CAGLE Date: 01/26/2024 09:38 Dictated By: Paul Cagle M.D. Signed By: 01/26/24940 DD/ 7 TD/TT: Aircraft Cleaning Supervisor: [place] [address] XRay Report Signed Patient: ROCIO VANCE MR#: [id number] : 1970 Acct:[id number] Age/Sex: 53 / F ADM Date: 01/25/24 Loc: EC Attending Dr: Hilda Gentile D.P.M. Ordering Physician: Hilda Gentile D.P.M. Date of Service: 01/25/24 Procedure(s): XR ank le LT min 3V Accession Number(s): [id number] cc: Hilda Gentile D.P.M.; Physician,Non-Staff [employer] [facility] [place] [address] Patient Name: GEETA VANCE MRN: [id number] date: 1970 Sex: F Assigned Patient Location: EC Current Patient Location: Accession/Order Numb er: [id number] Exam Date: 09:34 Report Date: 01/26/2024 09:38 At the request of: HILDA GENTILE Procedure: XR ankle LT min 3V PROCEDURE: XR ankle LT min 3V COMPARISON: Right/10/16 HISTORY: LEFT ANKLE PAIN FINDINGS: BONES:Again demonstr ated is a bone fragment along the expected course of the Achilles tendon like ly representing an avulsion fracture along enthesopathic spurring of the post erior calcaneus. No fracture or dislocation. Moderate degenerative changes with joint space narrowing and marginal osteophyte formation SOFT TISSUES:Negativ e. No visible soft tissue swelling. EFFUSION:None visible. OTHER: Varicosities. X R/XR ankle LT min 3V IMPRESSION: Stable bone avulsion of the posterior calcaneus at the Achilles insertion Electronically authenticated by: PAUL CAGLE Date: 01/26/2024 09:38 Dictated By: Farhad Cagle M.D. Signed By: 01/26/24940 DD/ 7 TD/TT: Aircraft Cleaning Supervisor: XR calcaneus LT min 2V Reviewed date:06/04/2024 01:00:24 PM Interpretation: Performing Lab: Notes/Report: Source Facility: [facility] [place] [address] [place] [address] XRay Report Signed Patient: GEETA VANCE MR#: [id number] : 1970 Acct:[id number] Age/Sex: 53 / F ADM Date: 01/06/24 Loc: EC Attending Dr: Hilda Gentile D.P.M. Ordering Physician: Hilda Gentile D.P.M. Date of Service: 01/06/24 Procedure(s): XR calcaneus LT min 2V Accession Number(s): [id number] cc: Hilda Gentile D.P.M.; Physician,Non-Staff [employer] [facility] [place] [address] Patient Name: GEETA VANCE MRN: [id number] date: 1970 Sex: F Assigned Patient Location: Current Patient Location: Accession/Order Number: [id number] Exam Date: 01/06/2024 08:40 Report Date: 01/07/2024 09:14 At the request of: HILDA GENTILE Procedure: XR calcaneus LT min 2V PROCEDURE: XR calcaneus LT min 2V HISTORY: LEFT FOOT PAIN COMPARISON: XR foot bilateral 12/30/2023 FINDINGS: BONES:Prior fracture of calcaneal degenerative enthesophyte at the Achilles tendon insertion with proximal retraction; unchanged. SOFT TISSUES:No visible soft tissue swelling. EFFUSION:None visible. OTHER: Negative. XR/XR calcaneus LT min 2V IMPRESSION: 1. Stable avulsion fracture at Achilles tendon insertion into the calcaneus. Electronically authenticated by: FLO TA Date: 01/07/2024 09:14 Dictated By: Flo Ta M.D. Signed By: 01/07/24917 DD/ 3 TD/TT: Aircraft Cleaning Supervisor: [place] [address] XRay Report Signed Patient: ROCIO VANCE MR#: [id number] : 1970 Acct:[id number] Age/Sex: 53 / F ADM Date: 01/06/24 Loc: EC Attending Dr: Hilda Gentile D.P.M. Ordering Physician: Hilda Gentile D.P.M. Date of Service: 01/06/24 Procedure(s): XR calcaneus LT min 2V Accession Number(s): [id number] cc: Hilda Gentile D.P.M.; Physician,Non-Staff [employer] [place] [address] Patient Name: GEETA VANCE MRN: [id number] date: 1970 Sex: F Assigned Patient Location: Current Patient Location: Accession/Order Numb er: [id number] Exam Date: 01/06/2024 08:40 Report Date: 01/07/2024 09:14 At the request of: HILDA GENTILE Procedure: XR calcan eus LT min 2V PROCEDURE: XR calcan eus LT min 2V HISTORY: LEFT FOOT PAIN COMPARISON: XR foot bilateral 12/30/2023 FINDINGS: BONES:Prior fracture of calcaneal degenerative enthesophyte at the Achilles tendon insertion wit h proximal retraction; unchanged. SOFT TISSUES:No visi ble soft tissue swelling. EFFUSION:None visible. OTHER: Negative. X R/XR calcaneus LT min 2V IMPRESSION: 1. Stable avulsion fracture at Achilles tendon insertion into the calcaneus. Electronically authenticated by: FLO TA Date: 01/07/2024 09:14 Dictated By: Flo Ta M.D. Signed By: 01/07/24917 DD/ 3 TD/TT: Aircraft Cleaning Supervisor: XR foot DANISH min 3V Reviewed date:06/04/2024 01:00:24 PM Interpretation: Performing Lab: Notes/Report: Source Facility: [place] [address] XRay Report Signed Patient: GEETA VANCE MR#: [id number] : 1970 Acct:[id number] Age/Sex: 53 / F ADM Date: 12/30/23 Loc: EC Attending Dr: Hilda Gentile D.P.M. Ordering Physician: Hilda Gentile D.P.M. Date of Service: 12/30/23 Procedure(s): XR foot DANISH min 3V Accession Number(s): [id number] cc: Hilda Gentile D.P.M.; Physician,Non-Staff [employer] [facility] [place] [address] Patient Name: GEETA VANCE MRN: [id number] date: 1970 Sex: F Assigned Patient Location: Current Patient Location: Accession/Order Number: [id number] Exam Date: 12/30/2023 09:00 Report Date: 12/31/2023 07:47 At the request of: HILDA GENTILE Procedure: XR foot DANISH min 3V EXAMINATION: XR foot DANISH min 3V, XR ankle DANISH min 3V HISTORY: BILATERAL FOOT PAIN COMPARISON: XR ankle and foot bilateral 12/16/2023 FINDINGS: RIGHT FINDINGS: BONES: Separate corticated ossification adjacent the medial malleolus favoring sequela of remote injury. Tiny corticated ossification distal to the lateral malleolus, also likely sequela of remote injury. Normal ankle joint spacing. Moderate degenerative enthesopathic spurring at Achilles tendon insertion and plantar aponeurosis . Bunion formation. SOFT TISSUES: No visible soft tissue swelling. OTHER: Negative. LEFT FINDINGS: BONES: Bunion formation. No fracture or dislocation. Prior avulsion fracture from posterior calcaneus at Achilles tendon insertion, unchanged. Large calcaneal plantar spur SOFT TISSUES: No visible soft tissue swelling. OTHER: Negative. XR/XR foot DANISH min 3V IMPRESSION: RIGHT CONCLUSION: Stable degenerative changes and suspected sequela of remote injury. No appreciable change compared to recent study. LEFT CONCLUSION: Stable degenerative changes. Stable avulsion fragment from posterior calcaneus at Achilles tendon insertion. No further retraction compared to prior study. Electronically authenticated by: FLO TA Date: 12/31/2023 07:47 Dictated By: Flo Ta M.D. Signed By: 12/31/23 0750 DD/ 0747 TD/TT: Aircraft Cleaning Supervisor: [place] [address] XRay Report Signed Patient: ROCIO VANCE MR#: [id number] : 1970 Acct:[id number] Age/Sex: 53 / F ADM Date: 12/30/23 Loc: EC Attending Dr: Hilda Gentile D.P.M. Ordering Physician: Hilda Gentile D.P.M. Date of Service: 12/30/23 Procedure(s): XR fei t DANISH min 3V Accession Number(s): [id number] cc: Hilda Gentile D.P.M.; Physician,Non-Staff [employer] [facility] [place] [address] Patient Name: GEETA VANCE MRN: [id number] date: 1970 Sex: F Assigned Patient Location: Current Patient Location: Accession/Order Numb er: [id number] Exam Date: 12/30/2023 09:00 Report Date: 12/31/2023 07:47 At the request of: HILDA GENTILE Procedure: XR foot B IL min 3V EXAMINATION: XR foot DANISH min 3V, XR ankle DANISH min 3V HISTORY: BILATERAL F OOT PAIN COMPARISON: XR ankle and foot bilateral 12/16/2023 FINDINGS: RIGHT FINDINGS: BONES: Separate corticated ossification adjacent the medial malleolus favoring sequela of remote in jury. Tiny corticated ossification distal to the lateral malleolus, also like ly sequela of remote injury. Normal ankle joint spacing. Moderate degenerativ e enthesopathic spurring at Achilles tendon insertion and plantar aponeurosis . Bunion formation. SOFT TISSUES: No vis ible soft tissue swelling. OTHER: Negative. LEFT FINDINGS: BONES: Bunion format ion. No fracture or dislocation. Prior avulsion fracture from posterior calca neus at Achilles tendon insertion, unchanged. Large calcaneal plantar spur SOFT TISSUES: No vis ible soft tissue swelling. OTHER: Negative. X R/XR foot DANISH min 3V IMPRESSION: RIGHT CONCLUSION: St able degenerative changes and suspected sequela of remote injury. No appreciab le change compared to recent study. LEFT CONCLUSION: Sta ble degenerative changes. Stable avulsion fragment from posterior calcaneus at Achilles tendon insertion. No further retraction compared to prior study. Electronically authenticated by: FLO TA Date: 12/31/2023 07:47 Dictated By: Flo Ta M.D. Signed By: 12/31/23 0750 DD/ 0747 TD/TT: Aircraft Cleaning Supervisor: XR ankle DANISH min 3V Reviewed date:06/04/2024 01:00:24 PM Interpretation: Performing Lab: Notes/Report: Source Facility: [place] [address] [place] [address] XRay Report Signed Patient: GEETA VANCE MR#: [id number] : 1970 Acct:[id number] Age/Sex: 53 / F ADM Date: 12/30/23 Loc: EC Attending Dr: Hilda Gentile D.P.M. Ordering Physician: Hilda Gentile D.P.M. Date of Service: 12/30/23 Procedure(s): XR ankle DANISH min 3V Accession Number(s): [id number] cc: Hilda Gentile D.P.M.; Physician,Non-Staff [employer] [facility] [place] [address] Patient Name: GEETA VANCE MRN: [id number] date: 1970 Sex: F Assigned Patient Location: Current Patient Location: Accession/Order Number: [id number] Exam Date: 12/30/2023 09:00 Report Date: 12/31/2023 07:47 At the request of: HILDA GENTILE Procedure: XR ankle DANISH min 3V EXAMINATION: XR foot DANISH min 3V, XR ankle DANISH min 3V HISTORY: BILATERAL FOOT PAIN COMPARISON: XR ankle and foot bilateral 12/16/2023 FINDINGS: RIGHT FINDINGS: BONES: Separate corticated ossification adjacent the medial malleolus favoring sequela of remote injury. Tiny corticated ossification distal to the lateral malleolus, also likely sequela of remote injury. Normal ankle joint spacing. Moderate degenerative enthesopathic spurring at Achilles tendon insertion and plantar aponeurosis . Bunion formation. SOFT TISSUES: No visible soft tissue swelling. OTHER: Negative. LEFT FINDINGS: BONES: Bunion formation. No fracture or dislocation. Prior avulsion fracture from posterior calcaneus at Achilles tendon insertion, unchanged. Large calcaneal plantar spur SOFT TISSUES: No visible soft tissue swelling. OTHER: Negative. XR/XR ankle DANISH min 3V IMPRESSION: RIGHT CONCLUSION: Stable degenerative changes and suspected sequela of remote injury. No appreciable change compared to recent study. LEFT CONCLUSION: Stable degenerative changes. Stable avulsion fragment from posterior calcaneus at Achilles tendon insertion. No further retraction compared to prior study. Electronically authenticated by: FLO TA Date: 12/31/2023 07:47 Dictated By: Flo Ta M.D. Signed By: 12/31/23 0750 DD/ 0747 TD/TT: Aircraft Cle[employer] Supervisor: [place] [address] XRay Report Signed Patient: ROCIO VANCE MR#: [id number] : 1970 Acct:[id number] Age/Sex: 53 / F ADM Date: 12/30/23 Loc: EC Attending Dr: Hilda Gentile D.P.M. Ordering Physician: Hilda Gentile D.P.M. Date of Service: 12/30/23 Procedure(s): XR ank le DANISH min 3V Accession Number(s): [id number] cc: Hilda Gentile D.P.M.; Physician,Non-Staff [place] [address] Patient Name: GEETA VANCE MRN: [id number] date: 1970 Sex: F Assigned Patient Location: Current Patient Location: Accession/Order Numb er: [id number] Exam Date: 12/30/2023 09:00 Report Date: 12/31/2023 07:47 At the request of: HILDA GENTILE Procedure: XR ankle DANISH min 3V EXAMINATION: XR foot DANISH min 3V, XR ankle DANISH min 3V HISTORY: BILATERAL F OOT PAIN COMPARISON: XR ankle and foot bilateral 12/16/2023 FINDINGS: RIGHT FINDINGS: BONES: Separate corticated ossification adjacent the medial malleolus favoring sequela of remote in jury. Tiny corticated ossification distal to the lateral malleolus, also like ly sequela of remote injury. Normal ankle joint spacing. Moderate degenerativ e enthesopathic spurring at Achilles tendon insertion and plantar aponeurosis . Bunion formation. SOFT TISSUES: No vis ible soft tissue swelling. OTHER: Negative. LEFT FINDINGS: BONES: Bunion format ion. No fracture or dislocation. Prior avulsion fracture from posterior calca neus at Achilles tendon insertion, unchanged. Large calcaneal plantar spur SOFT TISSUES: No vis ible soft tissue swelling. OTHER: Negative. X R/XR ankle DANISH min 3V IMPRESSION: RIGHT CONCLUSION: St able degenerative changes and suspected sequela of remote injury. No appreciab le change compared to recent study. LEFT CONCLUSION: Sta ble degenerative changes. Stable avulsion fragment from posterior calcaneus at Achilles tendon insertion. No further retraction compared to prior study. Electronically authenticated by: FLO TA Date: 12/31/2023 07:47 Dictated By: Flo Ta M.D. Signed By: 12/31/23 0750 DD/ 0747 TD/TT: Aircraft Cleaning Supervisor: PROF LAURENCE Guzman ([facility]) Reviewed date:06/04/2024 01:00:24 PM Interpretation: Performing Lab: Notes/Report: [facility] , Sodium 137 136-145 mmol/L Potassium 3.6 3.5-5.1 mmol/L Chloride 98 98-107 mmol/L Carbon Dioxide 27.1 21.0-32.0 mmol/L Anion Gap 15.5 Glucose 151 74-106 mg/dL Blood Urea Nitrogen 20.0 7.0-18.0 mg/dL Creatinine 0.84 0.55-1.02 mg/dL Estimated GFR ( Eneida >60 >=60 mL/min/1.73m 2 Estimated GFR (Non- Charley >60 >=60 mL/min/1.73m 2 BUN Creatinine Ratio 23.8 Calcium 9.5 8.5-10.1 mg/dL Performing Lab: see note ML - [facility] LB CRP Reviewed date:06/04/2024 01:00:24 PM Interpretation: Performing Lab: Notes/Report: [facility] , C Reactive Protein 18.96 <=0.50 mg/dL Performing Lab: see note ML - [facility] LB CBC AUTO DIFF Reviewed date:06/04/2024 01:00:24 PM Interpretation: Performing Lab: Notes/Report: [facility] , White Blood Count 11.4 4.0-11.0 10 3/uL Red Blood Count 5.69 4.20-5.40 10 6/uL Hemoglobin 14.2 12.0-16.0 g/dL Hematocrit 45.0 36.0-48.0 % Mean Corpuscular Volume 79.1 81.0-99.0 fL Mean Corpuscular Hemoglobin 25.0 26.7-34.0 pg Mean Corpuscular HGB Conc 31.6 29.9-35.2 g/dL Red Cell Distribution Width 15.6 11.0-15.0 % Platelet Count 305 150-450 10 3/uL Mean Platelet Volume 10.2 9.5-13.5 fL Neutrophils Percent Auto 63.3 43.0-75.0 % Lymphocytes Percent Auto 15.4 20.5-60.0 % Monocytes Percent Auto 12.5 1.7-12.0 % Eosinophils Percent Auto 5.1 0.9-7.0 % Basophils Percent Auto 0.7 0.2-2.0 % Immature Granulocytes Pct Auto 3.0 0.0-0.5 % Neutrophils Absolute Auto 7.2 1.4-6.5 10 3/uL Lymphocytes Absolute Auto 1.8 1.2-3.8 10 3/uL Monocytes Absolute Auto 1.4 0.3-0.8 10 3/uL Eosinophils Absolute Auto 0.6 0.0-0.7 10 3/uL Basophils Absolute Auto 0.1 0.0-0.1 10 3/uL Immature Granulocytes Abs Auto 0.34 0.00-0.03 10 3/uL Performing Lab: see note ML - [facility] LB Reason For Referral Reason evaluation and treat ment -- see attached order Diagnosis 1 Displaced avulsion f racture of tuberosity of left calcaneus, initial encounter for closed fracture (S92.032A) Referral Organization [facility] (PODIAT[facility]) Referring Provider First Name Hilda Referring Provider Last Name [facility] [place] Referring Provider Speciality Podiatry Referred Provider [facility], Physical Therap y Referred Provider Specialty Physical Med icine and Rehabilitation General Notes Jacob Bolaños 05/2023 03:03:07 PM >PT is not in network with patient's secondary insurance. Called patient to let her know, left message. Referral Priority Routine Reason PEG/PVR Diagnosis 1 Charcot's joint, lef t ankle and foot (M14.672) Referral Organization [facility] (POD[facility]) Referring Provider First Name Hilda Referring Provider Last Name [facility] [place] Referring Provider Speciality Podiatry Referred Provider Specialty Vascular and Interventional Radiology Referral Priority Routine Medications Medication SIG (Take, Route, Fr equency, Duration) Notes Start Date End Date Status Gabapentin 300 MG 1 capsule Orally thr ee times a day for 30 days 03/28/2024 Active Ammonium Lactate 12 % 1 APPLICATION EXTE RNALLY TWICE A DAY 30 DAYS for 30 Active Gabapentin 100 MG 1 capsule Orally Once a day Active Social History Tobacco Use: Social History Observation Description Date Details (start date - stop date) Never Smoker NA - NA Tobacco Control (Standard) Question Answer Notes Tobacco use: Nonsmoker Problems Problem Type SNOMED Code ICD Code Onset Dates Problem Status W/U Status Risk Notes Problem 431858902 Peripheral vascular disease, unspecified (I73.9) Active confirmed Problem 996421012 Type 2 diabetes mellitus with diabetic polyneuropathy (E11.42) Active confirmed Problem Foot ulcer due to type 2 diabetes mellitus (1154711738540) Type 2 diabetes mellitus with foot ulcer (E11.621) Active confirmed Problem 850388233928413 Pressure ulcer o f other site, stage 1 (L89.891) Active confirmed Problem 39709665405160383 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) Active confirmed Problem 687490137 Charcot's joint, left ankle and foot (M14.672) Active confirmed Problem Arthralgia of the ankle and/or foot (999911149) Pain in right ankle and joints of right foot (M25.571) Active confirmed Problem Arthralgia of the ankle and/or foot (733169204) Pain in left ankle and joints of left foot (M25.572) Active confirmed Problem 744410110 Displaced avulsion fracture of tuberosity of left calcaneus, initial encounter for closed fracture (S92.032A) Active confirmed Problem Essential hypertension (08897747) Benign essential HTN (I10) Active confirmed Problem Neuropathy (979776878) Neuropathy (G62.9) Active confirmed Problem Leukocytosis (124320497) Leukocytosis (D72.829) Active confirmed Problem Sepsis (46576265) Sepsis (A41.9) Active confirm ed Problem Culture positive for methicillin resistant Staphylococcus aureus (505100004) MRSA (methicillin resistant staph aureus) culture positive (Z22.322) Active confirmed Problem Non-pressure chronic ulcer of right heel and midfoot with muscle involvement without evidence of necrosis (L97.415) Active confirmed Problem Chronic ulcer of right heel with fat layer exposed (L97.412) Active confirmed Problem Chronic ulcer of right foot (disorder) (48062408815078062) Chronic ulcer of right foot with fat layer exposed (L97.512) Active confirmed Vital Signs Heart Rate 74 /min 03/28/2024 Temperature 97.1 degrees Fahrenheit 03/28/2024 Respiratory Rate 18 /min 01/25/2024 Oximetry 96 % 03/28/2024 Height 65 in 06/11/2024 Weight 260 lbs 03/13/2024 BMI 43.26 kg/m2 03/13/2024 Encounters Encounter Location Date Provider Diagnosis [facility] (PODIATRY) [address] [place] [address] [place] [address] 01/30/2024 [facility] [address] [place] [address] 06/11/2024 Yonny Hoy Sepsis A41.9 and MRS A (methicillin resistant staph aureus) culture positive Z22.322 [facility] (PODIATRY) [address] [place] [address] [place] [address] 12/16/2023 Hilda Gentile Charcot's joint, lef t ankle and foot M14.672 ; Displaced avulsion fracture of tuberosity of left calcaneus, initial encounter for closed fracture S92.032A ; Type 2 diabetes mellitus with diabetic polyneuropathy E11.42 ; Pain in left ankle and joints of left foot M25.572 and Pain in right ankle and joints of right foot M25.571 [facility] (PODI[facility]RY) [address] [place] [address] [place] [address] 12/20/2023 Hilda Gentile Pain in left ankle and joints of left foot M25.572 and Charcot's joint, left ankle and foot M14.672 [facility] (PODI[facility]) [address] [place] [address] [place] [address] 12/27/2023 Olga Vallejo Charcot's joint, lef t ankle and foot M14.672 [facility] ([facility]OD[facility]) [address] [place] [address] [place] [address] 12/30/2023 Hilda Gentile Displaced avulsion fracture of tuberosity of left calcaneus, initial encounter for closed fracture S92.032A ; Charcot's joint, left ankle and foot M14.672 ; Pressure ulcer of other site, stage 1 L89.891 ; Pain in left ankle and joints of left foot M25.572 ; Non-pressure chronic ulcer of right heel and midfoot with fat layer exposed L97.412 ; Type 2 diabetes mellitus with diabetic polyneuropathy E11.42 and Pain in right ankle and joints of right foot M25.571 [facility] ([facility]) [address] [place] [address] [place] [address] 01/06/2024 Hilda Gentile Displaced avulsion fracture of tuberosity of left calcaneus, initial encounter for closed fracture S92.032A ; Charcot's joint, left ankle and foot M14.672 and Pain in left ankle and joints of left foot M25.572 [facility] ([facility]OD[facility]) [address] [place] [address] [place] [address] 01/25/2024 Hilda Gentile Pain in left ankle and joints of left foot M25.572 ; Displaced avulsion fracture of tuberosity of left calcaneus, initial encounter for closed fracture S92.032A and Charcot's joint, left ankle and foot M14.672 [facility] ([facility]OD[facility]) [address] [place] [address] [place] [address] 02/15/2024 Hilda Gentile Displaced avulsion fracture of tuberosity of left calcaneus, initial encounter for closed fracture S92.032A [facility] ([facility]OD[facility]) [address] [place] [address] [place] [address] 03/13/2024 Hilda Gentile Charcot's joint, lef t ankle and foot M14.672 ; Peripheral vascular disease, unspecified I73.9 and Type 2 diabetes mellitus with diabetic polyneuropathy E11.42 [facility] ([facility]OD[facility]) [address] [place] [address] [place] [address] 03/28/2024 Hilda Gentile Charcot's joint, lef t ankle and foot M14.672 ; Displaced avulsion fracture of tuberosity of left calcaneus, initial encounter for closed fracture S92.032A ; Type 2 diabetes mellitus with diabetic polyneuropathy E11.42 and Peripheral vascular disease, unspecified I73.9 Assessments Encounter Date Diagnosis (ICD Code) Assessment Notes Treatment Notes Treatment Clinical Notes Section Notes 12/20/2023 Pain in left ankle and joints of left foot (ICD-10 - M25.572) 12/20/2023 Charcot's joint, left ankle and foot (ICD-10 - M14.672) 12/27/2023 Charcot's joint, left ankle and foot (ICD-10 - M14.672) 12/30/2023 Displaced avulsion fracture of tuberosity of left calcaneus, initial encounter for closed fracture (ICD-10 - S92.032A) Patient seen and evaluated. Patient education provided and all questions answered to her satisfaction. Patient is roughly a month status post Achilles avulsion fracture and in the setting of diabetic neuropathy is consistent with Charcot foot. She is doing well from this perspective and only having mild pain and discomfort however she did develop a wound from her cast. I recommended staying in a cam boot which she has in her possession but we did dispense wedges and she should remain in 1 or 2 wedges until she follows up within 2 weeks. I would like 2 views of the left calcaneus at follow-up 12/30/2023 Charcot's joint, left ankle and foot (ICD-10 - M14.672) 12/16/2023 Charcot's joint, left ankle and foot (ICD-10 - M14.672) Patient presents upon referral from the emergency department. Patient does not recall any injury but does have neuropathy. She began having pain in her posterior left heel roughly 2 weeks prior to presenting to the emergency department. X-rays demonstrated calcaneal avulsion fracture at the insertion of the Achilles tendon. Fortunately the fracture fragment has not migrated and is not tenting the skin currently.This fracture is consistent with insufficiency fracture which is only seen in osteoporosis or neuropathic arthropathy AKA Charcot. Given her neuropathy this more than likely represents Charcot therefore is at high risk for further complication and this was explained to her. She is at high risk for wound but given the fracture fragment is not tenting the skin I recommended that nonsurgical treatment be attempted first and the patient is in agreements.I recommended placement into a total contact cast which was applied accordingly using the TCC-EZ system. She may weight-bear in this cast with assistance but I strongly recommended rest and temporary sedentary lifestyle. She will follow-up in 3 to 5 days for cast change to evaluate her skin. No new x-rays are needed at that time 12/16/2023 Displaced avulsion fracture of tuberosity of left calcaneus, initial encounter for closed fracture (ICD-10 - S92.032A) 01/06/2024 Displaced avulsion fracture of tuberosity of left calcaneus, initial encounter for closed fracture (ICD-10 - S92.032A) Patient seen and evaluated. Patient education provided and all questions answered to her satisfaction. I recommended that she continue current management with the cam boot and wedges weightbearing as tolerated. She may remove 1 wedge every week to 10 days. Continue Lac-Hydrin on her skin and monitoring her fissures closely. She will follow-up in 3 weeks with weightbearing ankle x-rays and hopeful transition to normal shoes 01/06/2024 Charcot's joint, left ankle and foot (ICD-10 - M14.672) 01/25/2024 Pain in left ankle and joints of left foot (ICD-10 - M25.572) 01/25/2024 Displaced avulsion fracture of tuberosity of left calcaneus, initial encounter for closed fracture (ICD-10 - S92.032A) Patient follows up and unfortunately has not transitioned from 2 wedges. I strongly recommended today that 1 wedge be removed then the last wedge to be removed in 7 days. Then she will be walking without any wedges and in the cam boot for an additional week at which time she will follow-up. No new x-rays are needed. Prescription for formal physical therapy was provided and she should begin this within the next week but should be performing exercises on her own with light stretching and strengthening. Closely monitor the skin around the Achilles tendon 02/15/2024 Displaced avulsion fracture of tuberosity of left calcaneus, initial encounter for closed fracture (ICD-10 - S92.032A) Patient is doing very well and is 2 months from avulsion fracture of the calcaneus. She has attempted around the house to be out of the boot and feels pretty well. She should continue physical therapy and may transition completely out of the boot as pain allows. She will follow-up in 6 weeks no new x-rays are needed 03/13/2024 Charcot's joint, left ankle and foot (ICD-10 - M14.672) Patient presents for follow-up relating to tingling for the last week over her left dorsal foot. No new injury. She has not had symptoms like this before. She states symptoms are worse with elevation and at night. She has never had noninvasive vascular studies and given her type 2 diabetes as well as smoking history I recommended these which were ordered today. She may use Voltaren over the dorsal foot and over her Achilles to see if this helps.If blood flow is adequate her pain is likely secondary to neuropathy which may have been exacerbated with prolonged use of the cam boot and physical therapy may be beneficial but will evaluate her ABIs before recommending this. She will follow-up after her ABIs are completed 03/13/2024 Peripheral vascular disease, unspecified (ICD-10 - I73.9) 03/28/2024 Charcot's joint, left ankle and foot [...] encounter for closed fracture (ICD-10 - S92.032A) 06/11/2024 Sepsis (ICD-10 - A41.9) 06/11/2024 MRSA (methicillin resistant staph aureus) culture positive (ICD-10 - Z22.322) 03/28/2024 Type 2 diabetes mellitus with diabetic polyneuropathy (ICD-10 - E11.42) 03/13/2024 Type 2 diabetes mellitus with diabetic polyneuropathy (ICD-10 - E11.42) 01/25/2024 Charcot's joint, left ankle and foot (ICD-10 - M14.672) 01/06/2024 Pain in left ankle and joints of left foot (ICD-10 - M25.572) 12/16/2023 Type 2 diabetes mellitus with diabetic polyneuropathy (ICD-10 - E11.42) 12/30/2023 Pressure ulcer of other site, stage 1 (ICD-10 - L89.891) Patient should continue daily dressing changes and washing the area with soap and water. 12/30/2023 Pain in left ankle and joints of left foot (ICD-10 - M25.572) 12/16/2023 Pain in left ankle and joints of left foot (ICD-10 - M25.572) 03/28/2024 Peripheral vascular disease, unspecified (ICD-10 - I73.9) 12/16/2023 Pain in right ankle and joints of right foot (ICD-10 - M25.571) 12/30/2023 Non-pressure chronic ulcer of right heel and midfoot with fat layer exposed (ICD-10 - L97.412) After consent was obtained the ulcer on her right heel was debrided down to and including fat and fascia with a scalpel and tissue nipper removing debris, fibrotic and nonviable tissue to 100% healthy granular base. No anesthesia was necessary due to profound peripheral neuropathy and estimated blood loss was 3 cc with hemostasis being controlled with temporary pressure. Medihoney and dry sterile dressing was then applied which she is to apply after washing the ulcer with soap and water daily.Bactrim was also prescribed due to early cellulitis and she is to monitor for worsening signs of infection and go to the emergency department if these occur over the weekend or call the office if it is during normal business hours. Lac-Hydrin was also prescribed and she is to apply to her intact hyperkeratotic skin daily 12/30/2023 Type 2 diabetes mellitus with diabetic polyneuropathy (ICD-10 - E11.42) 12/30/2023 Pain in right ankle and joints of right foot (ICD-10 - M25.571) Plan Of Treatment Pending Test Test Name Order Date XR Ankle LT (3 views) * (164) 12/16/2023 XR Ankle LT (3 views) * (164) 01/25/2024 XR Ankle RT (3 views) * (161) 12/16/2023 XR Foot LT (3 views) * 12/16/2023 XR Foot LT (3 views) * 01/06/2024 XR Foot LT (3 views) * 03/13/2024 XR Foot RT (3 views) * 12/16/2023 XR Ankle 3 Views Bilateral 12/30/2023 XR Foot 3 Views Bilateral 12/30/2023 Aerobic Culture 06/02/2024 Aerobic Culture 06/02/2024 Anaerobic Culture 06/02/2024 Insurance Providers Payer Name Payer Address Payer Phone Subscriber Number Group Number Insured Name Patient Relationship to Insured Coverage Start Date Coverage End Date [facility]IC[facility] [address] [address] [place] [address] [id number] Geeta Vance Self - patient is the insured 5 [employer] [place] [employer] [address] [facility] [facility] [place] [address] [id number] Geeta Vance Self - patient is the insured 4 [place]ID [place] 2[employer] INS [address] [place] OF [place], [place] [id number] Geeta Vance Self - patient is the insured Medical (General) History Medical History History ICD Code diabetes neuropathy asthma high blood pressure Surgical History Surgery Date(Month/Year) Right knee replacement Left knee replacement
--- OUTSIDE RECORDS SUMMARY | 2024-09-26 08:48 | XMS_ITS | Patient Health Record ---
Author Organization [facility] Address [address] [place] [address] Care Team Providers Care Group Underwriter Name Role Phone Mamadou Chang Primary Care Provider Elizabeth Alvarado Unavailable Maye Burger Unavailable Henry Junior Unavailable [phone] Zuly Kolb Unavailable [phone] Allergies Allergen (clinical drug ingredient) Drug/Non Drug Allergy documented on EMR Reaction Allergy Type Onset Date Status penicillamine Penicillamine hives Drug Allergy Active Results Component Value Reference Range Notes Hemoglobin A1c Reviewed date:06/20/2024 11:11:42 AM Interpretation:7.1 Performing Lab: Notes/Report: 7.1 Hemoglobin A1c 7.1 5 - 7.9 % Hemoglobin A1c Reviewed date:01/30/2024 02:55:32 PM Interpretation:6.9 Performing Lab: Notes/Report: 6.9 Hemoglobin A1c 6.9 5 - 7.9 % Cologuard Reviewed date:01/23/2024 02:44:17 PM Interpretation:NEG Performing Lab: Notes/Report: NEG Impression NEG Reason For Referral No Information Medications Medication SIG (Take, Route, Frequency, Duration) Notes Start Date End Date Status Montelukast Sodium 10 MG TAKE 1 TABLET BY MOUTH EVERY DAY for 90 days Active rOPINIRole HCl 2 MG TAKE 1 TABLET BY MOUTH TWICE A DAY for 90 days Active Albuterol Sulfate HFA 108 (90 Base) MCG/ACT 1 puff as needed Inhalation every 4 hrs for 21 days PRN Not-Taking Sertraline HCl 100 MG 1.5 Tabs Orally Once a day for 90 days Dose increase: New dose 150 MG. Active Albuterol Sulfate (2.5 MG/3ML) 0.083% as directed Inhalation as needed (prn) q 6-8 hrs (bronchospasm) for 30 days PRN Not-Taking hydrOXYzine HCl 50 MG 1 tablet as needed Orally Twice per day for 90 days As needed Active Dulera 200-5 MCG/ACT 2 puff as needed Inhalation Twice per day for 90 days Active Celecoxib 200 MG TAKE 1 CAPSULE BY MOUTH EVERY DAY WITH FOOD for 90 days Active Gabapentin 400 MG 1 capsule Orally three times per day for 30 days Active Immunizations Vaccine Route Administration Date Status Comme nts Influenza-Adult IM Intramuscular 02/17/2018 Administered MODERNA IM Intramuscular 07/12/2020 Administered MODERNA IM Intramuscular 08/09/2020 Administered MODERNA IM Intramuscular 03/23/2021 Administered zzz IM Intramuscular 05/01/2012 Administered zzz IM Intramuscular 03/05/2015 Administered zzz do not use Adult flu IM Intramuscular 01/12/2017 Administered zzz do not use FLUARIX 3 YRS AND OLDER Unknown 03/05/2016 Administered was given at [facility] Social History Tobacco Use: Social History Observation Description Date Details (start date - stop date) Never Smoker NA - NA Sexual Hx: Question Answer Notes Had sex in the last 12 months (vaginal, oral, or anal)? No Have you ever had an STD? No PRAPARE Question Answer Notes Date Completed/Updated: 07/27/2021 What is your current housing situation? I have h ousing Are you worried about losing your housing? No What is the highest level of school that you have finished? Less than a high school degree What is your current work situation? Oth erwise unemployed but not seeking work (ex. 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 Check all that apply I do not have problems meeting my needs Has lack of transportation k ept you from medical appointments, meetings, work or from getting things needed for daily living? No How often do you see or talk to people that you care about and feel close to? (For example: talking to friends on the phone, visiting friends or family, going to pentecostal or club meetings) 3 to 5 times a week How stressed are you? Stress is when someone feels tense, nervous, anxious, or cant sleep at night because their mind is troubled Somewhat In the past year have you sp ent more than 2 nights in a row in a snf, jail, half-way center, or juvenile correctional facility? No Are you a refugee? No What country are you from? [place] Do you feel physically and e motionally safe where you currently live? Yes In the past year, have you b een afraid of your partner or ex-partner? I have not had a partner in the past year PRAPARE Score: 5 AUDIT-C (Standard) Question Answer Notes Did you have a drink containing alcohol in the p ast year? No Points 0 Interpretation Negative Tobacco Control (Standard) Question Answer Notes Tobacco use: Nonsmoker Section Notes: neg etoh and tobacco. works at [employer]. neg etoh and tobacco. works at [employer]. neg etoh and tobacco. works at [employer]. 01-10-12: DENIES TOBACCO. DEN IES ETOH. DENIES ILLEGAL DRUG USE. 01-10-12: DENIES TOBACCO. DEN IES ETOH. DENIES ILLEGAL DRUG USE. 01-10-12: DENIES TOBACCO. DEN IES ETOH. DENIES ILLEGAL DRUG USE. 01-10-12: DENIES TOBACCO. DEN IES ETOH. DENIES ILLEGAL DRUG USE. 04/04/15: DENIES TOBACCO, ETHO AND ILLEGAL DRUG USE. 01-10-12: DENIES TOBACCO. DENIES ETOH. DENIES ILLEGAL DRUG USE. 04/04/15: DENIES TOBACCO, ETHO AND ILLEGAL DRUG USE. 01-10-12: DENIES TOBACCO. DENIES ETOH. DENIES ILLEGAL DRUG USE. 04/04/15: DENIES TOBACCO, ETHO AND ILLEGAL DRUG USE. 01-10-12: DENIES TOBACCO. DENIES ETOH. DENIES ILLEGAL DRUG USE. 08/27/15: DENIES TOBACCO, ETOH AND IDU 04/04/15: DENIES TOBACCO, ETHO AND ILLEGAL DRUG USE. 01-10-12: DENIES TOBACCO. DENIES ETOH. DENIES ILLEGAL DRUG USE. 08/27/15: DENIES TOBACCO, ETOH AND IDU 04/04/15: DENIES TOBACCO, ETHO AND ILLEGAL DRUG USE. 01-10-12: DENIES TOBACCO. DENIES ETOH. DENIES ILLEGAL DRUG USE. 08/27/15: DENIES TOBACCO, ETOH AND IDU 04/04/15: DENIES TOBACCO, ETHO AND ILLEGAL DRUG USE. 01-10-12: DENIES TOBACCO. DENIES ETOH. DENIES ILLEGAL DRUG USE. 08/27/15: DENIES TOBACCO, ETOH AND IDU 04/04/15: DENIES TOBACCO, ETHO AND ILLEGAL DRUG USE. 01-10-12: DENIES TOBACCO. DENIES ETOH. DENIES ILLEGAL DRUG USE. 08/27/15: DENIES TOBACCO, ETOH AND IDU 04/04/15: DENIES TOBACCO, ETHO AND ILLEGAL DRUG USE. 01-10-12: DENIES TOBACCO. DENIES ETOH. DENIES ILLEGAL DRUG USE. 08/27/15: DENIES TOBACCO, ETOH AND IDU 04/04/15: DENIES TOBACCO, ETHO AND ILLEGAL DRUG USE. 01-10-12: DENIES TOBACCO. DENIES ETOH. DENIES ILLEGAL DRUG USE. 08/27/15: DENIES TOBACCO, ETOH AND IDU 04/04/15: DENIES TOBACCO, ETHO AND ILLEGAL DRUG USE. 01-10-12: DENIES TOBACCO. DENIES ETOH. DENIES ILLEGAL DRUG USE. 08/27/15: DENIES TOBACCO, ETOH AND IDU 04/04/15: DENIES TOBACCO, ETHO AND ILLEGAL DRUG USE. 01-10-12: DENIES TOBACCO. DENIES ETOH. DENIES ILLEGAL DRUG USE. 08/27/15: DENIES TOBACCO, ETOH AND IDU 04/04/15: DENIES TOBACCO, ETHO AND ILLEGAL DRUG USE. 01-10-12: DENIES TOBACCO. DENIES ETOH. DENIES ILLEGAL DRUG USE. 08/27/15: DENIES TOBACCO, ETOH AND IDU 04/04/15: DENIES TOBACCO, ETHO AND ILLEGAL DRUG USE. 01-10-12: DENIES TOBACCO. DENIES ETOH. DENIES ILLEGAL DRUG USE. 08/27/15: DENIES TOBACCO, ETOH AND IDU 04/04/15: DENIES TOBACCO, ETHO AND ILLEGAL DRUG USE. 01-10-12: DENIES TOBACCO. DENIES ETOH. DENIES ILLEGAL DRUG USE. 08/27/15: DENIES TOBACCO, ETOH AND IDU 04/04/15: DENIES TOBACCO, ETHO AND ILLEGAL DRUG USE. 01-10-12: DENIES TOBACCO. DENIES ETOH. DENIES ILLEGAL DRUG USE. 08/27/15: DENIES TOBACCO, ETOH AND IDU 04/04/15: DENIES TOBACCO, ETHO AND ILLEGAL DRUG USE. 01-10-12: DENIES TOBACCO. DENIES ETOH. DENIES ILLEGAL DRUG USE. 08/27/15: DENIES TOBACCO, ETOH AND IDU 04/04/15: DENIES TOBACCO, ETHO AND ILLEGAL DRUG USE. 01-10-12: DENIES TOBACCO. DENIES ETOH. DENIES ILLEGAL DRUG USE. 08/27/15: DENIES TOBACCO, ETOH AND IDU 04/04/15: DENIES TOBACCO, ETHO AND ILLEGAL DRUG USE. 01-10-12: DENIES TOBACCO. DENIES ETOH. DENIES ILLEGAL DRUG USE. 08/27/15: DENIES TOBACCO, ETOH AND IDU 04/04/15: DENIES TOBACCO, ETHO AND ILLEGAL DRUG USE. 01-10-12: DENIES TOBACCO. DENIES ETOH. DENIES ILLEGAL DRUG USE. 08/27/15: DENIES TOBACCO, ETOH AND IDU 04/04/15: DENIES TOBACCO, ETHO AND ILLEGAL DRUG USE. 01-10-12: DENIES TOBACCO. DENIES ETOH. DENIES ILLEGAL DRUG USE. 08/27/15: DENIES TOBACCO, ETOH AND IDU 04/04/15: DENIES TOBACCO, ETHO AND ILLEGAL DRUG USE. 01-10-12: DENIES TOBACCO. DENIES ETOH. DENIES ILLEGAL DRUG USE. 08/27/15: DENIES TOBACCO, ETOH AND IDU 04/04/15: DENIES TOBACCO, ETHO AND ILLEGAL DRUG USE. 01-10-12: DENIES TOBACCO. DENIES ETOH. DENIES ILLEGAL DRUG USE. 08/27/15: DENIES TOBACCO, ETOH AND IDU 04/04/15: DENIES TOBACCO, ETHO AND ILLEGAL DRUG USE. 01-10-12: DENIES TOBACCO. DENIES ETOH. DENIES ILLEGAL DRUG USE. 08/27/15: DENIES TOBACCO, ETOH AND IDU 04/04/15: DENIES TOBACCO, ETHO AND ILLEGAL DRUG USE. 01-10-12: DENIES TOBACCO. DENIES ETOH. DENIES ILLEGAL DRUG USE. 08/27/15: DENIES TOBACCO, ETOH AND IDU 04/04/15: DENIES TOBACCO, ETHO AND ILLEGAL DRUG USE. 01-10-12: DENIES TOBACCO. DENIES ETOH. DENIES ILLEGAL DRUG USE. 08/27/15: DENIES TOBACCO, ETOH AND IDU 04/04/15: DENIES TOBACCO, ETHO AND ILLEGAL DRUG USE. 01-10-12: DENIES TOBACCO. DENIES ETOH. DENIES ILLEGAL DRUG USE. 01-10-12: DENIES TOBACCO. DEN IES ETOH. DENIES ILLEGAL DRUG USE. 01-10-12: DENIES TOBACCO. DEN IES ETOH. DENIES ILLEGAL DRUG USE. 01-10-12: DENIES TOBACCO. DEN IES ETOH. DENIES ILLEGAL DRUG USE. 01-10-12: DENIES TOBACCO. DEN IES ETOH. DENIES ILLEGAL DRUG USE. 01-10-12: DENIES TOBACCO. DEN IES ETOH. DENIES ILLEGAL DRUG USE. 01-10-12: DENIES TOBACCO. DEN IES ETOH. DENIES ILLEGAL DRUG USE. neg etoh and tobacco. works at [employer]. neg etoh and tobacco. works at [employer]. 08/27/15: DENIES TOBACCO, ETOH AND IDU 04/04/15: DENIES TOBACCO, ETHO AND ILLEGAL DRUG USE. 01-10-12: DENIES TOBACCO. DENIES ETOH. DENIES ILLEGAL DRUG USE. 08/27/15: DENIES TOBACCO, ETOH AND IDU 04/04/15: DENIES TOBACCO, ETHO AND ILLEGAL DRUG USE. 01-10-12: DENIES TOBACCO. DENIES ETOH. DENIES ILLEGAL DRUG USE. Problems Problem Type SNOMED Code ICD Code Onset Dates Problem Status W/U Status Risk Notes Problem 402138291 Morbid (severe) obesity due to excess calories (E66.01) Active confirmed Problem Osteoarthritis of knee (809986855) Osteoarthritis of knee, unspecified (M17.9) Active confirmed Problem 09675415 Postmenopausal bleeding (N95.0) Active confirmed Problem 64701079 Essential hypertension (I10) Active confirmed Problem Mood swings (29387986) Mood swings (F39) Active confirmed Problem 022577970 Depression with anxiety (F41.8) Active confirmed Problem Restless legs (11773061) Restless leg (G25.81) Active confirmed Problem 89083818387789518 Arm paresthesi a, left (R20.2) Active confirmed Problem 848697936 Peripheral vascular disease (I73.9) Active confirmed Problem Female urinary stress incontinence (15663478) Stress incontinence in female (N39.3) Active confirmed Problem 59287659 Dysphagia, unspecified type (R13.10) Active confirmed Problem Moderate persistent asthma (843001201) Moderate persistent asthma (J45.40) Active confirmed Problem 567163671 Type 2 diabetes mellitus without complication, without long-term current use of insulin (E11.9) Active confirmed Problem 817308010 Abnormal vaginal bleeding (N93.9) Active confirmed Vital Signs Heart Rate 71 /min 06/20/2024 Temperature 98.2 degrees Fahrenheit 06/20/2024 Respiratory Rate 20 /min 06/20/2024 Oximetry 96 % 06/20/2024 Blood pressure diastolic 68 mm Hg 06/20/2024 Height 65 in 06/20/2024 Blood pressure systolic 115 mm Hg 06/20/2024 Weight 268.5 lbs 06/20/2024 BMI 44.68 kg/m2 06/20/2024 Encounters Encounter Location Date Provider Diagnosis [facility] [address] [address] 11/10/2023 Maye Burger Moderate persistent asthma J45.40 ; Essential hypertension I10 ; Restless leg G25.81 ; Mood swings F39 ; Stress incontinence in female N39.3 and Type 2 diabetes mellitus without complication, without long-term current use of insulin E11.9 [facility] [address] [place] [address] 01/30/2024 Mayemingo Blissson Type 2 diabetes mellitus without complication, without long-term current use of insulin E11.9 ; Restless leg G25.81 and Stress incontinence in female N39.3 [facility] [address] [place] [address] 06/20/2024 Mayemingo Blissson Restless leg G25.81 ; Type 2 diabetes mellitus without complication, without long-term current use of insulin E11.9 ; Moderate persistent asthma J45.40 ; Mood swings F39 ; Stress incontinence in female N39.3 ; Breast cancer screening by mammogram Z12.31 and Wound of foot S91.309A [facility] [address] [address] 11/01/2023 Elizabeth Alvarado Essential hypertension I10 and Mood swings F39 [address] [place] [address] 11/01/2023 Elizabeth Alvarado Essential hypertension I10 and Mood swings F39 [facility] [address] [place] [address] 11/14/2023 Maye Burger [address] [place] [address] 12/26/2023 Maye Burger [address] [place] [address] 01/23/2024 Maye Burger [address] [place] [address] 04/30/2024 Maye Burger [address] [place] [address] 05/14/2024 Maye Burger Stress incontinence in female N39.3 [facility] [address] [place] [address] 06/08/2024 Maye Burger [facility] [address] [place] [place] [address] 08/23/2024 Mamadou Chang Assessments Encounter Date Diagnosis (ICD Code) Assessment Notes Treatment Notes Treatment Clinical Notes Section Notes 11/01/2023 Essential hypertension (ICD-10 - I10) 11/01/2023 Essential hypertension (ICD-10 - I10) 11/10/2023 Essential hypertension (ICD-10 - I10) Patient has acceptable blood pressure control at this visit. Patient is instructed to continue blood pressure medication regimen as directed. Patient denied chest pain, palpitations, MATUTE, vision changes, syncope or dizziness at today's appointment. Educated patient to continue low salt/caffeine intake and encouraged exercise. Pt verbalized understanding. 11/10/2023 Moderate persistent asthma (ICD-10 - J45.40) Pt's asthma stable today.. Pt should continue medication regimen as directed. Pt denied SOB, wheezing, coughing, chest tightness, activity intolerance, night awakenings or recent hospitalizations at today's appointment. We discussed healthy home practices including but not limited to: avoidance of tobacco smoke/secondhand smoke, 50% humidity in home is ideal moisture level, avoid mold (exhaust fans in bathrooms, pipes, potted plants, wet towels, etc.), pest control, dust control, noxious gas detectors in home, wash laundry routinely and keep washer door open when not using to keep dry, upgrade filters with HVAC, consider carpet removal or vacuum regularly, frequent duct cleaning, pet-proof home, avoid pollen, avoid perfumes/fragrances /smoke. Also discussed proper inhaler use technique and use of chamber if warranted. Counseled patient regarding asthma action plan, red flags and when to seek emergency care. Recommended annual flu vaccines for all members in the household. Pt verbalized understanding. 01/30/2024 Restless leg (ICD-10 - G25.81) Pt does feel that the Gabapentin helps with neuropathy and restless legs. Will increase dosing and send in refills. Did check OARRs. Ed on possible s/e of med and can cause drowsiness. 01/30/2024 Type 2 diabetes mellitus without complication, without long-term current use of insulin (ICD-10 - E11.9) AIC is below goal of 7.0. Continue same medications as prescribed. UTD on labs. Continue home monitoring of blood sugars; if less than70 or >450 go to the ER. Pt enc to have annual eye exams as well as enc to not cut toe nails, routine foot care and checks with podiatry, if you develop any sores/concern RTO. F/U 3 months 05/14/2024 Stress incontinence in female (ICD-10 - N39.3) 06/20/2024 Restless leg (ICD-10 - G25.81) Refills sent. Pt denies concerns with med. OARRs checked. 06/20/2024 Type 2 diabetes mellitus without complication, without long-term current use of insulin (ICD-10 - E11.9) Continue same medications as prescribed. UTD on labs. Continue home monitoring of blood sugars; if less than70 or >450 go to the ER. Pt enc to have annual eye exams as well as enc to not cut toe nails, routine foot care and checks with podiatry, if you develop any sores/concern RTO. F/U 3 months 06/20/2024 Moderate persistent asthma (ICD-10 - J45.40) Denies flare up. Refills sent. 01/30/2024 Stress incontinence in female (ICD-10 - N39.3) Discussed physiology of incontinence and various types (stress, urge, mixed). Encouraged patient to perform Kegel exercises. Also discussed timed toileting. Will consider referral to pelvic floor therapy if symptoms fail to improve. Patient verbalized understanding. Will change to oxybutynin BID dosing which may help overnight and also trial of different med bc previous is not providing relief. 11/10/2023 Restless leg (ICD-10 - G25.81) Has not had iron checked or ferritin with labs, will get updated labs and recheck. 11/01/2023 Mood swings (ICD-10 - F39) 11/01/2023 Mood swings (ICD-10 - F39) 11/10/2023 Mood swings (ICD-10 - F39) Mood greatly improved with current medication regime. Continue with meds. F/U sooner if any worsening of mood. 06/20/2024 Mood swings (ICD-10 - F39) Mood has room for improvement, will increase sertraline. Discussed risks and side effects of medication. Patient denies SI/HI today. Follow up if mood does not improve. Patient verbalized understanding. 06/20/2024 Stress incontinence in female (ICD-10 - N39.3) Denies concerns and med is helping with symptoms. 11/10/2023 Stress incontinence in female (ICD-10 - N39.3) Refills sent. Pt reports helping with symptoms. 11/10/2023 Type 2 diabetes mellitus without complication, without long-term current use of insulin (ICD-10 - E11.9) A!C is above goal of 7.0, optimal goal is 6.5%. Medication reviewed. Medication changed today. Pt is enc to monitor BS at home, if <70 or >450 go to the ER. Education on new medication and possible s.e, make sure to drink lots of fluids to hydrate and notify RESIDENTIAL REAL ESTATE SALES MANAGER of any s/e or signs of inf. 06/20/2024 Breast cancer screening by mammogram (ICD-10 - Z12.31) Due for mammogram ordered for pt. 06/20/2024 Wound of foot (ICD-10 - S91.309A) Seeing podiatry for care of foot and has an appt on Tuesday. Declines RESIDENTIAL REAL ESTATE SALES MANAGER to examine foot. Dressing dry and intact. Completing antibiotics. Education on good glycemic control to help with healing. Plan Of Treatment No Information Insurance Providers Payer Name Payer Address Payer Phone Subscriber Number Group Number Insured Name Patient Relationship to Insured Coverage Start Date Coverage End Date [facility] [address] [place] [address] [id number] [employer] Self - patient is the insured 1 Secondary [employer] [facility] [address] [place] [address] [id number] [employer] Self - patient is the insured 4 [employer] [address] [place] [phone] [id number] [employer] Self - patient is the insured 4 [employer] MEDICAID SEC TO [facility] [address] [place] [address] [id number] [employer] Self - patient is the insured 0 MEDICARE [address] [place] [address] [id number] [employer] Self - patient is the insured 0 [facility] [place] [address] [place] [address] [id number] [employer] Self - patient is the insured 8 1 [employer] [address] [place] [address] [id number] [employer] Self - patient is the insured 1 1 [facility] [place] D[place] [address] [address] [place] [address] [id number] [employer] Self - patient is the insured 2 Medical (General) History Medical History History ICD Code Restless Leg Syndrome Asthma HTN Seasonal Allergies Otitis externa H60.90 Neuropathy Diabetes Mellitus Type II Overactive Bladder Foot Cellulitis with Wound Plantar 06/19 Surgical History Surgery Date(Month/Year) Varicose Veins 2009 partial right knee replacement 06/24/16 Right Heel Bone Spur 01/24/2019 Total Knee Arthroplasty Rt. Total Knee Replacement Hospitalization History Reason Date(Month/Year) Cellulitis and Wound Plantar Foot 05/2024 Knee Arthroplasty 06/2016
--- OUTSIDE RECORDS SUMMARY | 2024-09-26 08:48 | XMS_ITS | Clinical Summary ---
Author Organization [facility] Address [address] [place] [address] Care Team Providers Care Pari Mutuel Ticket Seller Name Role Phone Unallocated, Noms Provider Primary Care Provi janis Allergies Active Allergy Reactions Criticality Noted Date Comments Ibuprofen 09/02/2023 Penicillins 09/02/2023 Active Problems Problem Noted Date Diagnosed Date Paresthesia of skin 09/02/2023 RLS (restless legs syndrome) 09/02/2023 Other chronic pain 09/02/2023 Ataxia 09/02/2023 Carpal tunnel syndrome, right 09/02/2023 Polyneuropathy 09/02/2023 Family History Medical History Relation Name Comments Diabetes Father Hypertension Father Asthma Mother Hyperlipidemia Mother Relation Name Status Comments Father Mother Social History Tobacco Use Types Packs/Day Years Used Date Smoking Tobacco: Never Tobacco Cessation:Counseling Given: Not Answered Alcohol Use Standard Drinks/Week Comments Yes 2 (1 standard drink = 0.6 oz pur e alcohol) AUDIT-C Answer Date Recorded Q1: How often do you have a drink containing alc ohol? 2-3 times a week 09/02/2023 Q2: How many drinks containi ng alcohol do you have on a typical day when you are drinking? 3 or 4 09/02/2023 Q3: How often do you have si x or more drinks on one occasion? Weekly 09/02/2023 Comments Unknown Sex and Gender Information Value Date Recorded Sex Assigned at Not on file Legal Sex Female 6:34 PM EDT Gender Identity Not on file Sexual Orientation Not on file Last Filed Vital Signs Vital Sign Reading Time Taken Comments Blood Pressure 138/77 10/19/2021 12:00 PM EDT Pulse - - Temperature - - Respiratory Rate - - Oxygen Saturation - - Inhaled Oxygen Concentration - - Weight 118 kg (260 lb) 01/04/2022 12:00 PM EDT Height 165.1 cm (5' 5 ) 01/04/2022 12:00 PM EDT Body Mass Index 43.27 01/04/2022 12:00 PM EDT Plan of Treatment Health Maintenance Due Date Last Done Comments CT Colonography 1968 Colonoscopy 1968 FIT 1968 FOBT 1968 Medicare Annual Wellness (AWV) 1968 Sigmoidoscopy 1968 Pap Smear 02/23/1989 Cervical Cancer Screening 02/23/1998 HPV/Cotest 02/23/1998 Mammogram 2008 Colorectal Cancer Screening 02/17/2023 FIT-DNA 02/17/2023 02/18/2020 Influenza Vaccine (Season Ended) 2024 03/16/20 16, 03/05/2015 Insurance MEDICARE [facility] Care Teams Pari Mutuel Ticket Seller Relationship Specialty Start Date End Date Unallocated, Noms Provider, [address] [place], [place] [id number] PCP - General 10/14/22
--- OUTSIDE RECORDS SUMMARY | 2024-09-26 09:09 | XMS_ITS | CCD ---
Author Organization [facility] Care Team Providers Care Appliance Mechanic Name Role Phone RHEA Alvarado Attending Provider [facility] Primary Care Provider RHEA Alvarado Primary Care Provide r CARLI Villeda Attending Provider RHEA Alvarado Primary Care Provide r CARLI Villeda Attending Provider [phone] Pending Provider Unavailable Unavailable Unavailable Unavailable Unavailable [...] Attending Provider DO Lorrie Baig Attending Provider [phone] RHEA Alvarado Primary Care Provide r Acosta Schafer Attending Provider RHEA Ramirez Attending Provider DO Lorrie Baig Referring Provider [phone] [place], [address] Acosta Tyson Attending Un available [...] MARII Davila Attending Provider Tyler Jean Unavailable [phone] RHEA Alvarado Primary Care Provide r [...] source) Ibuprofen Drug Allergy 4 Unknown Reaction [facility] Penicillins (antibiotic) (2 sources) Penicillin Drug Allergy 4 [facility] (20 sources) Penicillins; Translations: [Penicillins] Allergy to substance 8 Anaphylaxis [facility] (6 sources) Ibuprofen; Translations: [ibuprofen] Drug Allergy 3 Unknown Reaction [facility] (3 sources) Penicillin V Drug Allergy 3 [facility] (1 source) Penicillin Drug Allergy 4 [facility] Repository Medications Current Medications Medication Drug Class(es) Dates Sig (Normalized) Sig (Original) acetaminophen 325 mg oral tablet (2 sources) Start: 07-01-2022 acetaminophen (TYLENOL) tablet 650 mg Start: 07-01-2022 End: 07-01-2022 acetaminophen (TYLENOL) tabl et 1,000 mg [id number] 200 actuat albuterol 0.09 mg/actuat metered dose [...] Active docusate sodium 50 mg / sennosides, half-way 8.6 mg oral tablet (2 sources) Start: [...] disintegrating tablet 4 mg polyethylene glycol [id number] [id number] mg powder for oral solution (1 source) [...] break. Start: 12-03-2021 take 1 capsule by [facility] once daily venlafaxine (EFFEXOR XR) [...] Range Facility Outside Recordson 06-11-2024 Outside Records [id number] [facility] Rad - Other Radiology Report on 06-11-2024 Rad - Other Radiology Report [id number]#.[facility] [id number]#[facility] Alanine aminotransferase [En zymatic activity/volume] in Serum or PlasmaOrdered By: Krzysztof Salazar on 09-20-2023 ALT [Catalytic activity/Vol] 33 U/L Normal 7-52 [facility] Comment on above: Performed By: #### F ER, CMP, CBC, FE and TIBC #### [facility] [address] [place] [address] [place] #### TOMA SERUM, SPE, KAPPA #### [facility] , Albumin [Mass/volume] in Ser um or PlasmaOrdered By: Krzysztof Salazar on 09-20-2023 Albumin [Mass/Vol] 3.8 g/dL Normal 2.9-4.4 [facility] Comment on above: Performed By: #### F ER, CMP, CBC, FE and TIBC #### [facility] [address] [place] [address] [place] #### TOMA SERUM, SPE, KAPPA #### [facility] , Albumin [Mass/volume] in Ser um or Plasma by Bromocresol green (BCG) dye binding methoOrdered By: Krzysztof Salazar on 09-20-2023 Albumin BCG dye [Mass/Vol] 4.2 g/dL 3.5-5.7 [facility] Alkaline phosphatase [Enzyma tic activity/volume] in Serum or PlasmaOrdered By: Krzysztof Salazar on 09-20-2023 ALP [Catalytic activity/Vol] 79 U/L Normal 34-104 [facility] Comment on above: Performed By: #### F ER, CMP, CBC, FE and TIBC #### [facility] [address] [place] [address] [place] #### TOMA SERUM, SPE, KAPPA #### [facility] , Aspartate aminotransferase [ Enzymatic activity/volume] in Serum or PlasmaOrdered By: Krzysztof Salazar on 09-20-2023 AST [Catalytic activity/Vol] 30 U/L Normal 13-39 [facility] Comment on above: Performed By: #### F ER, CMP, CBC, FE and TIBC #### [facility] [address] [place] [address] [place] #### TOMA SERUM, SPE, KAPPA #### [facility] , Automated basophil %Ordered By: Krzysztof Salazar on 09-20-2023 Basophils/100 WBC (Bld) 0.5 % Normal . [facility] Comment on above: Performed By: #### F ER, CMP, CBC, FE and TIBC #### [address] #### TOMA SERUM, SPE, KAPPA #### [facility] , Automated basophil countOrde red By: Krzysztof Salazar on 09-20-2023 Basophils (Bld) [#/Vol] 0.0 10*3/uL Normal 0.0-0.2 [facility] Comment on above: Result Comment: PERF ORMED BY: [place] [address] PATHOLOGIST PLASTIC EXTRUDING MACHINE OPERATOR MELODY ELAM M.D. Performed By: #### F ER, CMP, CBC, FE and TIBC #### [address] #### TOMA SERUM, SPE, KAPPA #### [facility] , Automated blood monocyte cou ntOrdered By: Krzysztof Salazar on 09-20-2023 Monocytes (Bld) [#/Vol] 0.7 10*3/uL Normal 0.0-0.8 [facility] Comment on above: Performed By: #### F ER, CMP, CBC, FE and TIBC #### [address] #### TOMA SERUM, SPE, KAPPA #### [facility] , Automated eosinophil %Ordere d By: Krzysztof Salazar on 09-20-2023 Eosinophils/100 WBC (Bld) 2.6 % Normal . [facility] Comment on above: Performed By: #### F ER, CMP, CBC, FE and TIBC #### [place] [address] [place] #### TOMA SERUM, SPE, KAPPA #### [facility] , Automated eosinophil countOr dered By: Krzysztof Salazar on 09-20-2023 Eosinophils (Bld) [#/Vol] 0.2 10*3/uL Normal 0.0-0.45 [facility] Comment on above: Performed By: #### F ER, CMP, CBC, FE and TIBC #### [address] #### TOMA SERUM, SPE, KAPPA #### [facility] , Automated monocyte %Ordered By: Krzysztof Salazar on 09-20-2023 Monocytes/100 WBC (Bld) 7.9 % Normal . [facility] Comment on above: Performed By: #### F ER, CMP, CBC, FE and TIBC #### [address] #### TOMA SERUM, SPE, KAPPA #### [facility] , Automated neutrophil %Ordere d By: Krzysztof Salazar on 09-20-2023 Neutrophils/100 WBC (Bld) 64.3 % Normal . [facility] Comment on above: Performed By: #### F ER, CMP, CBC, FE and TIBC #### [address] #### TOMA SERUM, SPE, KAPPA #### [facility] , Bilirubin.total [Mass/volume ] in Serum or PlasmaOrdered By: Krzysztof Salazar on 09-20-2023 Bilirubin [Mass/Vol] 0.6 mg/dL Normal 0.3-1.0 [facility] Comment on above: Performed By: #### F ER, CMP, CBC, FE and TIBC #### [address] #### TOMA SERUM, SPE, KAPPA #### [facility] , Calcium [Mass/volume] in Ser um or PlasmaOrdered By: Krzysztof Salazar on 09-20-2023 Calcium [Mass/Vol] 9.7 mg/dL Normal 8.6-10.3 [facility] Comment on above: Performed By: #### F ER, CMP, CBC, FE and TIBC #### [facility] [address] [place] [address] [place] #### TOMA SERUM, SPE, KAPPA #### [facility] , Carbon dioxide, total [Moles /volume] in Serum or PlasmaOrdered By: Krzysztof Salazar on 09-20-2023 CO2 [Moles/Vol] 32.4 mmol/L High 21.0-31.0 [facility] Comment on above: Performed By: #### F ER, CMP, CBC, FE and TIBC #### [address] #### TOMA SERUM, SPE, KAPPA #### [facility] , Chloride [Moles/volume] in S hugo or PlasmaOrdered By: Krzysztof Salazar on 09-20-2023 Chloride [Moles/Vol] 97 mmol/L Low 98-107 [facility] Comment on above: Performed By: #### F ER, CMP, CBC, FE and TIBC #### [place] [address] [place] #### TOMA SERUM, SPE, KAPPA #### [facility] , Complete Blood Count Auto Di ffon 09-20-2023 Mean Corpuscular HGB Conc 32.7 g/dL Normal 32.0-35.0 [facility] Comment on above: Performed By: #### F ER, CMP, CBC, FE and TIBC #### [facility] [address] [place] [address] [place] #### TOMA SERUM, SPE, KAPPA #### [facility] , NRBC% 0.1 /100{WBC} Normal 0-0.5 [facility] Comment on above: Performed By: #### F ER, CMP, CBC, FE and TIBC #### [place] [address] [place] #### TOMA SERUM, SPE, KAPPA #### [facility] , Comprehensive Metabolic Pane gretel 09-20-2023 Albumin [Mass/Vol] 4.2 g/dL Normal 3.5-5.7 [facility] Comment on above: Performed By: #### F ER, CMP, CBC, FE and TIBC #### [address] #### TOMA SERUM, SPE, KAPPA #### [facility] , Creatinine Clr Calc Pharmacy 143.32 Normal [facility] Comment on above: Performed By: #### F ER, CMP, CBC, FE and TIBC #### [address] #### TOMA SERUM, SPE, KAPPA #### [facility] , GFR/1.73 sq M.predicted MDRD (S/P/Bld) [Vol rate/Area] mL/min/{1.73_m2} Normal [facility] Comment on above: Performed By: #### F ER, CMP, CBC, FE and TIBC #### [address] #### TOMA SERUM, SPE, KAPPA #### [facility] , Creatinine [Mass/volume] in Serum or PlasmaOrdered By: Krzysztof Salazar on 09-20-2023 Creatinine [Mass/Vol] 0.60 mg/dL Normal 0.60-1.20 [facility] Comment on above: Performed By: #### F ER, CMP, CBC, FE and TIBC #### [address] #### TOMA SERUM, SPE, KAPPA #### [facility] , Erythrocyte distribution wid th [Ratio] by Automated countOrdered By: Krzysztof Salazar on 09-20-2023 Erythrocyte distribution width (RBC) [Ratio] 16.7 % High 11.9-15.3 [facility] Comment on above: Performed By: #### F ER, CMP, CBC, FE and TIBC #### [address] #### TOMA SERUM, SPE, KAPPA #### [facility] , Erythrocytes [#/volume] in B lood by Automated countOrdered By: Krzysztof Salazar on 09-20-2023 RBC (Bld) [#/Vol] 4.86 10*6/uL Normal 3.60-5.00 [facility] Comment on above: Performed By: #### F ER, CMP, CBC, FE and TIBC #### [address] #### TOMA SERUM, SPE, KAPPA #### [facility] , Ferritin [Mass/volume] in Se rum or PlasmaOrdered By: Krzysztof Salazar on 09-20-2023 Ferritin [Mass/Vol] 92.7 ng/mL Normal 11.0-306.8 [facility] Comment on above: Result Comment: PERF ORMED BY: [place] [address] PATHOLOGIST PLASTIC EXTRUDING MACHINE OPERATOR MELODY ELAM M.D. Performed By: #### F ER, CMP, CBC, FE and TIBC #### [address] #### TOMA SERUM, SPE, KAPPA #### [facility] , Free K+L LT Chains, Qn, Son 09-20-2023 Free [place] Light Chains, S 30.9 mg/L High 3.3-19.4 [facility] Comment on above: Performed By: #### F ER, CMP, CBC, FE and TIBC #### [facility] [address] [place] [address] [place] #### TOMA SERUM, SPE, KAPPA #### [facility] , Free Lambda Light Chains, S 26.4 mg/L High 5.7-26.3 [facility] Comment on above: Performed By: #### F ER, CMP, CBC, FE and TIBC #### [place] [address] [place] #### TOMA SERUM, SPE, KAPPA #### [facility] , [place]/Lambda Ratio, S 1.17 Normal 0.26-1.65 [facility] Comment on above: Result Comment: Perf ormed at: - [facility] [address] [id number] Compotype Operator: Jeyson Duncan PhD, Phone: [phone] PERFORMED BY: [place] [address] PATHOLOGIST PLASTIC EXTRUDING MACHINE OPERATOR MELODY ELAM M.D. Performed By: #### F ER, CMP, CBC, FE and TIBC #### [address] #### TOMA SERUM, SPE, KAPPA #### [facility] , Glucose [Mass/volume] in Ser um or PlasmaOrdered By: Krzysztof Salazar on 09-20-2023 Glucose [Mass/Vol] 123 mg/dL High 70-100 [facility] Comment on above: ADA recommended refe rence rangeRandom Glucose Reference Range is dependent on time and content of last meal. Glucose of more than 200 mg/dL in a nonstressed, ambulatory subject supports the diagnosis of Diabetes Mellitus. Result Comment: [place] om Glucose Reference Range is dependent on time and content of last meal. Glucose of more than 200 mg/dL in a nonstressed, ambulatory subject supports the diagnosis of Diabetes Mellitus. ADA recommended reference range Performed By: #### F ER, CMP, CBC, FE and TIBC #### [place] [address] [place] #### TOMA SERUM, SPE, KAPPA #### [facility] , Hematocrit [Volume Fraction] of Blood by Automated countOrdered By: Krzysztof Salazar on 09-20-2023 Hematocrit (Bld) [Volume fraction] 38.3 % Normal 34.0-46.4 [facility] Comment on above: Performed By: #### F ER, CMP, CBC, FE and TIBC #### [place] [id number] [place] #### TOMA SERUM, SPE, KAPPA #### [facility] , Hemoglobin [Mass/volume] in BloodOrdered By: Krzysztof Salazar on 09-20-2023 Hemoglobin (Bld) [Mass/Vol] 12.5 g/dL Normal 11.8-15.4 [facility] Comment on above: Performed By: #### F ER, CMP, CBC, FE and TIBC #### [facility] [address] [place] [address] [place] #### TOMA SERUM, SPE, KAPPA #### [facility] , IgA [Mass/volume] in Serum o r PlasmaOrdered By: Krzysztof Salazar on 09-20-2023 IgA [Mass/Vol] 409 mg/dL 87-352 [facility] IgG [Mass/volume] in Serum o r PlasmaOrdered By: Krzysztof Salazar on 09-20-2023 IgG [Mass/Vol] 1704 mg/dL [phone] [facility] IgM [Mass/volume] in Serum o r PlasmaOrdered By: Krzysztof Salazar on 09-20-2023 IgM [Mass/Vol] 122 mg/dL 26-217 [facility] Comment on above: Performed at: [place] [id number] Director: Jeyson Duncan PhD, Phone: [phone] Immunofixation,Serumon 09-19 Immunofixation, Serum Normal . [facility] Comment on above: Result Comment: No m onoclonality detected. Performed By: #### F ER, CMP, CBC, FE and TIBC #### [facility] [address] [place] [address] [place] #### TOMA SERUM, SPE, KAPPA #### [facility] , Immunoglobulin A, Serum 409 mg/dL High 87-352 [facility] Comment on above: Performed By: #### F ER, CMP, CBC, FE and TIBC #### [facility] [address] [place] [address] [place] #### TOMA SERUM, SPE, KAPPA #### [facility] , Immunoglobulin G 1704 mg/dL High 586-1602 [facility] Comment on above: Performed By: #### F ER, CMP, CBC, FE and TIBC #### [facility] [address] [place] [address] #### TOMA SERUM, SPE, KAPPA #### [facility] , Immunoglobulin M, Serum 122 mg/dL Normal 26-217 [facility] Comment on above: Result Comment: Perf ormed at: [facility] [address] [place], [place] [id number] Compotype Operator: Jeyson Duncan PhD, Phone: [phone] Performed By: #### F ER, CMP, CBC, FE and TIBC #### [address] #### TOMA SERUM, SPE, KAPPA #### [facility] , Immunoglobulin light chains. kappa.free [Mass/volume] in SerumOrdered By: Krzysztof Salazar on 09-20-2023 Immunoglobulin light chains.kappa.free (S) [Mass/Vol] 30.9 mg/L 3.3-19.4 [facility] Immunoglobulin light chains. kappa.free/Immunoglobulin light chains.lambda.free [MassOrdered By: Krzysztof Salazar on 09-20-2023 Immunoglobulin light chains.kappa.free/Immuno globulin light chains.lambda.free (S) [Mass ratio] 1.17 0.26-1.65 [facility] Comment on above: Performed at: [facility] [id number] [place], [place] [id number] Director: Jeyson Duncan PhD, Phone: [phone] Immunoglobulin light chains. lambda.free [Mass/volume] in Serum or PlasmaOrdered By: Krzysztof Salazar on 09-20-2023 Immunoglobulin light chains.lambda.free [Mass/Vol] 26.4 mg/L 5.7-26.3 [facility] Iron [Mass/volume] in Serum or PlasmaOrdered By: Krzysztof Salazar on 09-20-2023 Iron [Mass/Vol] 74 ug/dL Normal 50-212 [facility] Comment on above: Performed By: #### F ER, CMP, CBC, FE and TIBC #### [facility] [address] [place] [address] #### TOMA SERUM, SPE, KAPPA #### [facility] , Iron and TIBC Profileon 08-24 % Iron Saturation 21.5 % Normal 20-50 [facility] Comment on above: Performed By: #### F ER, CMP, CBC, FE and TIBC #### [facility] [address] [place] [address] [place] #### TOMA SERUM, SPE, KAPPA #### [facility] , Total Iron Binding Capacity 344 ug/dL Normal 255-450 [facility] Comment on above: Performed By: #### F ER, CMP, CBC, FE and TIBC #### [facility] [address] [place] [address] [place] #### TOMA SERUM, SPE, KAPPA #### [facility] , Iron binding capacity [Mass/ volume] in Serum or PlasmaOrdered By: Krzysztof Salazar on 09-20-2023 Iron binding capacity [Mass/Vol] 344 ug/dL 255-450 [facility] Iron saturation [Mass Fracti on] in Serum or PlasmaOrdered By: Krzysztof Salazar on 09-20-2023 Iron saturation [Mass fraction] 21.5 % 20-50 [facility] Leukocytes [#/volume] correc silverio for nucleated erythrocytes in Blood by Automated counOrdered By: Krzysztof Salazar on 09-20-2023 WBC corrected for nucl RBC Auto (Bld) [#/Vol] 8.5 10*3/uL 3.8-11.6 [facility] Leukocytes [#/volume] in Blo od by Automated countOrdered By: Krzysztof Salazar on 09-20-2023 WBC (Bld) [#/Vol] 8.5 10*3/uL Normal 3.8-11.6 [facility] Comment on above: Performed By: #### F ER, CMP, CBC, FE and TIBC #### [facility] [address] [place] [address] [place] #### TOMA SERUM, SPE, KAPPA #### [facility] , Lymphocytes [#/volume] in Bl ood by Automated countOrdered By: Krzysztof Salazar on 09-20-2023 Lymphocytes (Bld) [#/Vol] 2.1 10*3/uL Normal 1.00-4.8 [facility] Comment on above: Performed By: #### F ER, CMP, CBC, FE and TIBC #### [address] #### TOMA SERUM, SPE, KAPPA #### [facility] , Lymphocytes/100 leukocytes i n Blood by Automated countOrdered By: Krzysztof Salazar on 09-20-2023 Lymphocytes/100 WBC (Bld) 24.7 % Normal . [facility] Comment on above: Performed By: #### F ER, CMP, CBC, FE and TIBC #### [place] [address] [place] #### TOMA SERUM, SPE, KAPPA #### [facility] , MCH [Entitic mass] by Automa silverio countOrdered By: Krzysztof Salazar on 09-20-2023 MCH (RBC) [Entitic mass] 25.8 pg Normal 24.7-34.3 [facility] Comment on above: Performed By: #### F ER, CMP, CBC, FE and TIBC #### [place] [address] [place] #### TOMA SERUM, SPE, KAPPA #### [facility] , MCHC Auto (RBC) [Mass/Vol]Or dered By: Krzysztof Salazar on 09-20-2023 MCHC (RBC) [Mass/Vol] 32.7 g/dL 32.0-35.0 [facility] MCV [Entitic volume] by Auto mated countOrdered By: Krzysztof Salazar on 09-20-2023 MCV (RBC) [Entitic vol] 78.7 fL Low 80-100 [facility] Comment on above: Performed By: #### F ER, CMP, CBC, FE and TIBC #### [address] #### TOMA SERUM, SPE, KAPPA #### [facility] , Neutrophils [#/volume] in Bl ood by Automated countOrdered By: Krzysztof Salazar on 09-20-2023 Neutrophils (Bld) [#/Vol] 5.5 10*3/uL Normal 1.8-7.7 [facility] Comment on above: Performed By: #### F ER, CMP, CBC, FE and TIBC #### [address] #### TOMA SERUM, SPE, KAPPA #### [facility] , No Panel InformationOrdered By: Krzysztof Salazar on 09-20-2023 Estimated GFR (CKD-EPI) > 60.0 mL/Min [facility] Creatinine Clearance (Chem 143.32 [facility] Protein Electrophoresis M-Antwan Not observed g/dL Not Observed [facility] Protein Electrophoresis Note See comment . [facility] Comment on above: Protein electrophore sis scan will follow via computer,mail, or eradicator delivery. Serum Immunofixation See comment . [facility] Comment on above: No monoclonality det ected. Nucleated erythrocytes [Pres ence] in Blood by Automated countOrdered By: Krzysztof Salazar on 09-20-2023 Nucleated RBC Auto Ql (Bld) 0.1 /100{WBC} 0-0.5 [facility] Platelet mean volume [Entiti c volume] in Blood by Automated countOrdered By: Krzysztof Salazar on 09-20-2023 Platelet mean volume (Bld) [Entitic vol] 8.8 fL Normal 6.3-10.7 [facility] Comment on above: Performed By: #### F ER, CMP, CBC, FE and TIBC #### [place] [address] [place] #### TOMA SERUM, SPE, KAPPA #### [facility] , Platelets [#/volume] in Bloo d by Automated countOrdered By: Krzysztof Salazar on 09-20-2023 Platelets (Bld) [#/Vol] 271 10*3/uL Normal 150-450 [facility] Comment on above: Performed By: #### F ER, CMP, CBC, FE and TIBC #### [address] #### TOMA SERUM, SPE, KAPPA #### [facility] , Potassium [Moles/volume] in Serum or PlasmaOrdered By: Krzysztof Salazar on 09-20-2023 Potassium [Moles/Vol] 4.4 mmol/L Normal 3.5-5.1 [facility] Comment on above: Performed By: #### F ER, CMP, CBC, FE and TIBC #### [place] [address] [place] #### TOMA SERUM, SPE, KAPPA #### [facility] , Protein Electrophoresis, Ser umon 09-20-2023 [place]-4-Gtidzcle 0.3 g/dL Normal 0.0-0.4 [facility] Comment on above: Performed By: #### F ER, CMP, CBC, FE and TIBC #### [facility] [address] [place] [address] [place] #### TOMA SERUM, SPE, KAPPA #### [facility] , Drdpi-2-Sfovvipt 0.8 g/dL Normal 0.4-1.0 [facility] Comment on above: Performed By: #### F ER, CMP, CBC, FE and TIBC #### [place] [address] [place] #### TOMA SERUM, SPE, KAPPA #### [facility] , Beta Globulin 1.2 g/dL Normal 0.7-1.3 [facility] Comment on above: Performed By: #### F ER, CMP, CBC, FE and TIBC #### [address] #### TOMA SERUM, SPE, KAPPA #### [facility] , Gamma Globulin 1.8 g/dL Normal 0.4-1.8 [facility] Comment on above: Performed By: #### F ER, CMP, CBC, FE and TIBC #### [address] #### TOMA SERUM, SPE, KAPPA #### [facility] , M-Antwan Not Observed Normal Not Observed [facility] Comment on above: Performed By: #### F ER, CMP, CBC, FE and TIBC #### [address] #### TOMA SERUM, SPE, KAPPA #### [facility] , SPE-Note Normal . [facility] Comment on above: Result Comment: Prot ein electrophoresis scan will follow via computer, mail, or eradicator delivery. Performed By: #### F ER, CMP, CBC, FE and TIBC #### [address] #### TOMA SERUM, SPE, KAPPA #### [facility] , Protein [Mass/volume] in Ser um or PlasmaOrdered By: Krzysztof Salazar on 09-20-2023 Protein [Mass/Vol] 7.7 g/dL Normal 6.4-8.9 [facility] Comment on above: Performed By: #### F ER, CMP, CBC, FE and TIBC #### [place] [address] [place] #### TOMA SERUM, SPE, KAPPA #### [facility] , Protein [Mass/Vol] 7.8 g/dL Normal 6.0-8.5 [facility] Comment on above: Performed By: #### F ER, CMP, CBC, FE and TIBC #### [place] [address] [place] #### TOMA SERUM, SPE, KAPPA #### [facility] , Serum globulin measurement ( mass/volume)Ordered By: Krzysztof Salazar on 09-20-2023 Globulin (S) [Mass/Vol] 4.0 g/dL High 2.2-3.9 [facility] Comment on above: Performed By: #### F ER, CMP, CBC, FE and TIBC #### [place] [address] [place] #### TOMA SERUM, SPE, KAPPA #### [facility] , Serum globulin measurement b y calculation (mass/volume)Ordered By: Krzysztof Salazar on 09-20-2023 Globulin (S) [Mass/Vol] 3.5 g/dL Normal [facility] Comment on above: Performed By: #### F ER, CMP, CBC, FE and TIBC #### [place] [address] [place] #### TOMA SERUM, SPE, KAPPA #### [facility] , Serum or plasma albumin/glob ulin mass ratioOrdered By: Krzysztof Salazar on 09-20-2023 Albumin/Globulin [Mass ratio] 1.2 {ratio} Normal [facility] Comment on above: Performed By: #### F ER, CMP, CBC, FE and TIBC #### [facility] [address] [place] [address] [place] #### TOMA SERUM, SPE, KAPPA #### [facility] , Albumin/Globulin [Mass ratio] 1.0 {ratio} Normal 0.7-1.7 [facility] Comment on above: Performed By: #### F ER, CMP, CBC, FE and TIBC #### [facility] [address] [place] [address] [place] #### TOMA SERUM, SPE, KAPPA #### [facility] , Serum or plasma alpha 1 glob ulin measurement by electrophoresis (mass/volume)Ordered By: Krzysztof Salazar on 09-20-2023 Alpha 1 globulin Elph [Mass/Vol] 0.3 g/dL 0.0-0.4 [facility] Serum or plasma alpha 2 glob ulin measurement by electrophoresis (mass/volume)Ordered By: Krzysztof Salazar on 09-20-2023 Alpha 2 globulin Elph [Mass/Vol] 0.8 g/dL 0.4-1.0 [facility] Serum or plasma anion gap de terminationOrdered By: Krzysztof Salazar on 09-20-2023 Anion gap [Moles/Vol] 11.0 mmol/L Normal 6.0-15.0 [facility] Comment on above: Performed By: #### F ER, CMP, CBC, FE and TIBC #### [facility] [address] [place] [address] #### TOMA SERUM, SPE, KAPPA #### [facility] , Serum or plasma beta globuli n measurement by electrophoresis (mass/volume)Ordered By: Krzysztof Salazar on 09-20-2023 Beta globulin Elph [Mass/Vol] 1.2 g/dL 0.7-1.3 [facility] Serum or plasma gamma globul in measurement by electrophoresis (mass/volume)Ordered By: Krzysztof Salazar on 09-20-2023 Gamma globulin Elph [Mass/Vol] 1.8 g/dL 0.4-1.8 [facility] Sodium [Moles/volume] in Ser um or PlasmaOrdered By: Krzysztof Salazar on 09-20-2023 Sodium [Moles/Vol] 136 mmol/L Normal 136-145 [facility] Comment on above: Performed By: #### F ER, CMP, CBC, FE and TIBC #### [facility] [address] [place] [address] [place] #### TOMA SERUM, SPE, KAPPA #### [facility] , Transferrin [Mass/volume] in Serum or PlasmaOrdered By: Krzysztof Salazar on 09-20-2023 Transferrin [Mass/Vol] 246 mg/dL Normal 203-362 [facility] Comment on above: Performed By: #### F ER, CMP, CBC, FE and TIBC #### [address] #### TOMA SERUM, SPE, KAPPA #### [facility] , Urea nitrogen [Mass/volume] in Serum or PlasmaOrdered By: Krzysztof Salazar on 09-20-2023 Urea nitrogen [Mass/Vol] 16 mg/dL Normal 7-25 [facility] Comment on above: Performed By: #### F ER, CMP, CBC, FE and TIBC #### [address] #### TOMA SERUM, SPE, KAPPA #### [facility] , US pelvic completeon 024 US pelvic complete [facility] Main [facility] [address] [place] [address] Ultrasound Report Signed Patient: Geeta Shelton MR#: [id number] : 1970 Acct:[id number] Age/Sex: 53 / F ADM Date: 09/07/23 Loc: Room: Type: [facility] Attending Dr: STEPHEN Ruiz APRNC Ordering Provider: Elizabeth Alvarado APRN, CNP Date of Service: 09/07/23 US/US transvaginal: Abnormal vaginal bleeding ([id number]) US/US pelvic complete: Abnormal vaginal bleeding Copies [...] Davis Jr., Fede09/07/2023 2:39 PM Dictation Location: [place] [address] Tech: Jessica Saenz Transcribed By: SEJAL 09/07/23 1439 Dictated By: Jesus Davis Jr, DO 09/07/23 1437 Signed By: 09/07/23 1439 Normal [facility] Alanine aminotransferase [En zymatic activity/volume] in Serum or PlasmaOrdered By: Elizabeth Alvarado on 08-24-2023 ALT [Catalytic activity/Vol] 28 U/L Normal 7-52 [facility] Comment on above: Order Comment: Reaso n for Exam Type 2 diabetes mellitus without complication, without long- Performed By: #### F ER, CMP, CBC, FE and TIBC #### [facility] [address] [place] [address] [place] #### TOMA SERUM, SPE, KAPPA #### [facility] , Albumin [Mass/volume] in Ser um or Plasma by Bromocresol green (BCG) dye binding methoOrdered By: Elizabeth Alvarado on 08-24-2023 Albumin BCG dye [Mass/Vol] 4.3 g/dL 3.5-5.7 [facility] Alkaline phosphatase [Enzyma tic activity/volume] in Serum or PlasmaOrdered By: Elizabeth Alvarado on 08-24-2023 ALP [Catalytic activity/Vol] 86 U/L Normal 34-104 [facility] Comment on above: Order Comment: Reaso n for Exam Type 2 diabetes mellitus without complication, without long- Performed By: #### F ER, CMP, CBC, FE and TIBC #### [facility] [address] [place] [address] [place] #### TOMA SERUM, SPE, KAPPA #### [facility] , Aspartate aminotransferase [ Enzymatic activity/volume] in Serum or PlasmaOrdered By: Elizabeth Alvarado on 08-24-2023 AST [Catalytic activity/Vol] 28 U/L Normal 13-39 [facility] Comment on above: Order Comment: Reaso n for Exam Type 2 diabetes mellitus without complication, without long- Performed By: #### F ER, CMP, CBC, FE and TIBC #### [facility] [address] #### TOMA SERUM, SPE, KAPPA #### [facility] , Automated basophil %Ordered By: Elizabeth Alvarado on 08-24-2023 Basophils/100 WBC (Bld) 0.7 % Normal . [facility] Comment on above: Order Comment: Reaso n for Exam Type 2 diabetes mellitus without complication, without long- Performed By: #### T SH3 wRFLX, LIPID, CBC, CMP #### [facility] [address] Automated basophil countOrde red By: Elizabeth Alvarado on 08-24-2023 Basophils (Bld) [#/Vol] 0.1 10*3/uL Normal 0.0-0.2 [facility] Comment on above: Order Comment: Reaso n for Exam Type 2 diabetes mellitus without complication, without long- Result Comment: PERF ORMED BY: [place] [address] PATHOLOGIST PLASTIC EXTRUDING MACHINE OPERATOR MELODY ELAM M.D. Performed By: #### T SH3 wRFLX, LIPID, CBC, CMP #### [facility] [address] [place] [address] Automated blood monocyte cou ntOrdered By: Elizabeth Alvarado on 08-24-2023 Monocytes (Bld) [#/Vol] 0.8 10*3/uL Normal 0.0-0.8 [facility] Comment on above: Order Comment: Reaso n for Exam Type 2 diabetes mellitus without complication, without long- Performed By: #### T SH3 wRFLX, LIPID, CBC, CMP #### [facility] [address] Automated eosinophil %Ordere d By: Elizabeth Alvarado on 08-24-2023 Eosinophils/100 WBC (Bld) 3.3 % Normal . [facility] Comment on above: Order Comment: Reaso n for Exam Type 2 diabetes mellitus without complication, without long- Performed By: #### T SH3 wRFLX, LIPID, CBC, CMP #### [facility] [address] Automated eosinophil countOr dered By: Elizabeth Alvarado on 08-24-2023 Eosinophils (Bld) [#/Vol] 0.3 10*3/uL Normal 0.0-0.45 [facility] Comment on above: Order Comment: Reaso n for Exam Type 2 diabetes mellitus without complication, without long- Performed By: #### T SH3 wRFLX, LIPID, CBC, CMP #### [facility] [address] Automated monocyte %Ordered By: Elizabeth Alvarado on 08-24-2023 Monocytes/100 WBC (Bld) 8.1 % Normal . [facility] Comment on above: Order Comment: Reaso n for Exam Type 2 diabetes mellitus without complication, without long- Performed By: #### T SH3 wRFLX, LIPID, CBC, CMP #### [facility] [address] Automated neutrophil %Ordere d By: Elizabeth Alvarado on 08-24-2023 Neutrophils/100 WBC (Bld) 62.4 % Normal . [facility] Comment on above: Order Comment: Reaso n for Exam Type 2 diabetes mellitus without complication, without long- Performed By: #### T SH3 wRFLX, LIPID, CBC, CMP #### [facility] [address] [place] [address] Bilirubin.total [Mass/volume ] in Serum or PlasmaOrdered By: Elizabeth Alvarado on 08-24-2023 Bilirubin [Mass/Vol] 0.4 mg/dL Normal 0.3-1.0 [facility] Comment on above: Order Comment: Reaso n for Exam Type 2 diabetes mellitus without complication, without long- Performed By: #### F ER, CMP, CBC, FE and TIBC #### [facility] [address] [place] [address] [place] #### TOMA SERUM, SPE, KAPPA #### [facility] , Calcium [Mass/volume] in Ser um or PlasmaOrdered By: Elizabeth Alvarado on 08-24-2023 Calcium [Mass/Vol] 9.4 mg/dL Normal 8.6-10.3 [facility] Comment on above: Order Comment: Reaso n for Exam Type 2 diabetes mellitus without complication, without long- Performed By: #### F ER, CMP, CBC, FE and TIBC #### [address] #### TOMA SERUM, SPE, KAPPA #### [facility] , Carbon dioxide, total [Moles /volume] in Serum or PlasmaOrdered By: Elizabeth Alvarado on 08-24-2023 CO2 [Moles/Vol] 29.2 mmol/L Normal 21.0-31.0 [facility] Comment on above: Order Comment: Reaso n for Exam Type 2 diabetes mellitus without complication, without long- Performed By: #### F ER, CMP, CBC, FE and TIBC #### [facility] [address] [place] [address] [place] #### TOMA SERUM, SPE, KAPPA #### [facility] , Chloride [Moles/volume] in S hugo or PlasmaOrdered By: Elizabeth Alvarado on 08-24-2023 Chloride [Moles/Vol] 96 mmol/L Low 98-107 [facility] Comment on above: Order Comment: Reaso n for Exam Type 2 diabetes mellitus without complication, without long- Performed By: #### F ER, CMP, CBC, FE and TIBC #### [facility] [address] [place] [address] [place] #### TOMA SERUM, SPE, KAPPA #### [facility] , Cholesterol [Mass/volume] in Serum or PlasmaOrdered By: Elizabeth Alvarado on 08-24-2023 Cholesterol [Mass/Vol] 160 mg/dL Normal 140-200 [facility] Comment on above: Chol less than 200 [...] ER, CMP, CBC, FE and TIBC #### [facility] [address] #### TOMA SERUM, SPE, KAPPA #### [facility] , Cholesterol in LDL Calc [Mas s/Vol]Ordered By: Elizabeth Alvarado on 08-24-2023 Cholesterol in LDL [Mass/Vol] 78 mg/dL 0-100 [facility] Comment on above: LDL ATP III CLASSIFI CATIONLDL less than 100 mg/dL OptimalLDL 100-129 mg/dL Near or above optimalLDL 130-159 mg/dL Borderline highLDL 160-189 mg/dL HighLDL greater than 189 mg/dL Very high Cholesterol in VLDL Calc [Ma ss/Vol]Ordered By: Elizabeth Alvarado on 08-24-2023 Cholesterol in VLDL [Mass/Vol] 22 mg/dL [facility] Complete Blood Count Auto Di ffon 08-24-2023 Mean Corpuscular HGB Conc 32.5 g/dL Normal 32.0-35.0 [facility] Comment on above: Order Comment: Reaso n for Exam Type 2 diabetes mellitus without complication, without long- Performed By: #### T SH3 wRFLX, LIPID, CBC, CMP #### [facility] [address] NRBC% 0.2 /100{WBC} Normal 0-0.5 [facility] Comment on above: Order Comment: Reaso n for Exam Type 2 diabetes mellitus without complication, without long- Performed By: #### T SH3 wRFLX, LIPID, CBC, CMP #### [address] Comprehensive Metabolic Pane gretel 08-24-2023 Albumin [Mass/Vol] 4.3 g/dL Normal 3.5-5.7 [facility] Comment on above: Order Comment: Reaso n for Exam Type 2 diabetes mellitus without complication, without long- Performed By: #### F ER, CMP, CBC, FE and TIBC #### [address] #### TOMA SERUM, SPE, KAPPA #### [facility] , GFR/1.73 sq M.predicted MDRD (S/P/Bld) [Vol rate/Area] mL/min/{1.73_m2} Normal [facility] Comment on above: Order Comment: Reaso n for Exam Type 2 diabetes mellitus without complication, without long- Performed By: #### F ER, CMP, CBC, FE and TIBC #### [address] #### TOMA SERUM, SPE, KAPPA #### [facility] , Creatinine [Mass/volume] in Serum or PlasmaOrdered By: Elizabeth Alvarado on 08-24-2023 Creatinine [Mass/Vol] 0.65 mg/dL Normal 0.60-1.20 [facility] Comment on above: Order Comment: Reaso n for Exam Type 2 diabetes mellitus without complication, without long- Performed By: #### F ER, CMP, CBC, FE and TIBC #### [place] [address] [place] #### TOMA SERUM, SPE, KAPPA #### [facility] , Creatinine [Mass/volume] in UrineOrdered By: Elizabeth Alvarado on 08-24-2023 Creatinine (U) [Mass/Vol] 76.0 mg/dL [facility] Comment on above: No reference range e stablished Erythrocyte distribution wid th [Ratio] by Automated countOrdered By: Elizabeth Alvarado on 08-24-2023 Erythrocyte distribution width (RBC) [Ratio] 15.8 % High 11.9-15.3 [facility] Comment on above: Order Comment: Reaso n for Exam Type 2 diabetes mellitus without complication, without long- Performed By: #### T SH3 wRFLX, LIPID, CBC, CMP #### [facility] [address] Erythrocytes [#/volume] in B lood by Automated countOrdered By: Elizabeth Alvarado on 08-24-2023 RBC (Bld) [#/Vol] 5.06 10*6/uL High 3.60-5.00 [facility] Comment on above: Order Comment: Reaso n for Exam Type 2 diabetes mellitus without complication, without long- Performed By: #### T SH3 wRFLX, LIPID, CBC, CMP #### [facility] [address] Glucose [Mass/volume] in Ser um or PlasmaOrdered By: Elizabeth Alvarado on 08-24-2023 Glucose [Mass/Vol] 92 mg/dL Normal 70-100 [facility] Comment on above: ADA recommended refe rence rangeRandom Glucose Reference Range is dependent on time and content of last meal. Glucose of more than 200 mg/dL in a nonstressed, ambulatory subject supports the diagnosis of Diabetes Mellitus. Order Comment: Reaso n for Exam Type 2 diabetes mellitus without complication, without long- Result Comment: [place] om Glucose Reference Range is dependent on time and content of last meal. Glucose of more than 200 mg/dL in a nonstressed, ambulatory subject supports the diagnosis of Diabetes Mellitus. ADA recommended reference range Performed By: #### F ER, CMP, CBC, FE and TIBC #### [facility] [address] [place] [address] [place] #### TOMA SERUM, SPE, KAPPA #### [facility] , Hematocrit [Volume Fraction] of Blood by Automated countOrdered By: Elizabeth Alvarado on 08-24-2023 Hematocrit (Bld) [Volume fraction] 40.6 % Normal 34.0-46.4 [facility] Comment on above: Order Comment: Reaso n for Exam Type 2 diabetes mellitus without complication, without long- Performed By: #### T SH3 wRFLX, LIPID, CBC, CMP #### [facility] [address] Hemoglobin [Mass/volume] in BloodOrdered By: Elizabeth Alvarado on 08-24-2023 Hemoglobin (Bld) [Mass/Vol] 13.2 g/dL Normal 11.8-15.4 [facility] Comment on above: Order Comment: Reaso n for Exam Type 2 diabetes mellitus without complication, without long- Performed By: #### T SH3 wRFLX, LIPID, CBC, CMP #### [facility] [address] Leukocytes [#/volume] correc silverio for nucleated erythrocytes in Blood by Automated counOrdered By: Elizabeth Alvarado on 08-24-2023 WBC corrected for nucl RBC Auto (Bld) [#/Vol] 10.2 10*3/uL 3.8-11.6 [facility] Leukocytes [#/volume] in Blo od by Automated countOrdered By: Elizabeth Alvarado on 08-24-2023 WBC (Bld) [#/Vol] 10.2 10*3/uL Normal 3.8-11.6 [facility] Comment on above: Order Comment: Reaso n for Exam Type 2 diabetes mellitus without complication, without long- Performed By: #### T SH3 wRFLX, LIPID, CBC, CMP #### [facility] [address] Lipid Panelon 08-24-2023 LDL Cholesterol,Calculated 78 mg/dL Normal 0-100 [facility] Comment on above: [...] ER, CMP, CBC, FE and TIBC #### [address] #### TOMA SERUM, SPE, KAPPA #### [facility] , Triglyceride w/Reflex 112 mg/dL Normal 0-149 [facility] Comment on above: [...] ER, CMP, CBC, FE and TIBC #### [address] #### TOMA SERUM, SPE, KAPPA #### [facility] , VLDL CHOLESTEROL 22 mg/dL Normal [facility] Comment on above: Order Comment: Reaso n for Exam Type 2 diabetes mellitus without complication, without long- Performed By: #### F ER, CMP, CBC, FE and TIBC #### [address] #### TOMA SERUM, SPE, KAPPA #### [facility] , Lymphocytes [#/volume] in Bl ood by Automated countOrdered By: Elizabeth Alvarado on 08-24-2023 Lymphocytes (Bld) [#/Vol] 2.6 10*3/uL Normal 1.00-4.8 [facility] Comment on above: Order Comment: Reaso n for Exam Type 2 diabetes mellitus without complication, without long- Performed By: #### T SH3 wRFLX, LIPID, CBC, CMP #### [address] Lymphocytes/100 leukocytes i n Blood by Automated countOrdered By: Elizabeth Alvarado on 08-24-2023 Lymphocytes/100 WBC (Bld) 25.5 % Normal . [facility] Comment on above: Order Comment: Reaso n for Exam Type 2 diabetes mellitus without complication, without long- Performed By: #### T SH3 wRFLX, LIPID, CBC, CMP #### [address] MCH [Entitic mass] by Automa silverio countOrdered By: Elizabeth Alvarado on 08-24-2023 MCH (RBC) [Entitic mass] 26.1 pg Normal 24.7-34.3 [facility] Comment on above: Order Comment: Reaso n for Exam Type 2 diabetes mellitus without complication, without long- Performed By: #### T SH3 wRFLX, LIPID, CBC, CMP #### [address] MCHC Auto (RBC) [Mass/Vol]Or dered By: Elizabeth Alvarado on 08-24-2023 MCHC (RBC) [Mass/Vol] 32.5 g/dL 32.0-35.0 [facility] MCV [Entitic volume] by Auto mated countOrdered By: Elizabeth Alvarado on 08-24-2023 MCV (RBC) [Entitic vol] 80.3 fL Normal 80-100 [facility] Comment on above: Order Comment: Reaso n for Exam Type 2 diabetes mellitus without complication, without long- Performed By: #### T SH3 wRFLX, LIPID, CBC, CMP #### [address] MicroAlb Creat Ratio,Uon Creatinine, Urine (Random) 76.0 mg/dL Normal [facility] Comment on above: Order Comment: Reaso n for Exam Type 2 diabetes mellitus without complication, without long- Result Comment: No r eference range established Performed By: #### F ER, CMP, CBC, FE and TIBC #### [address] #### TOMA SERUM, SPE, KAPPA #### [facility] , Microalbumin/Creatinine Ratio Not performed Normal 0.0-30.0 [facility] Comment on above: Order Comment: Reaso n for Exam Type 2 diabetes mellitus without complication, without long- Result Comment: PERF ORMED BY: [place] [address] PATHOLOGIST PLASTIC EXTRUDING MACHINE OPERATOR MELODY ELAM M.D. Performed By: #### F ER, CMP, CBC, FE and TIBC #### [address] #### TOMA SERUM, SPE, KAPPA #### [facility] , Microalbumin [Mass/volume] i n UrineOrdered By: Elizabeth Alvarado on 08-24-2023 Albumin DL <= 20 mg/L (U) [Mass/Vol] mg/dL High 0.0-1.8 [facility] Comment on above: Order Comment: Reaso n for Exam Type 2 diabetes mellitus without complication, without long- Performed By: #### F ER, CMP, CBC, FE and TIBC #### [facility] [address] [place] [address] #### TOMA SERUM, SPE, KAPPA #### [facility] , Neutrophils [#/volume] in Bl ood by Automated countOrdered By: Elizabeth Alvarado on 08-24-2023 Neutrophils (Bld) [#/Vol] 6.4 10*3/uL Normal 1.8-7.7 [facility] Comment on above: Order Comment: Reaso n for Exam Type 2 diabetes mellitus without complication, without long- Performed By: #### T SH3 wRFLX, LIPID, CBC, CMP #### [facility] [address] [place] [address] No Panel InformationOrdered By: Elizabeth Alvarado on 08-24-2023 Estimated GFR (CKD-EPI) > 60.0 mL/Min [facility] Creatinine Clearance (Chem N/A [facility] Nucleated erythrocytes [Pres ence] in Blood by Automated countOrdered By: Elizabeth Alvarado on 08-24-2023 Nucleated RBC Auto Ql (Bld) 0.2 /100{WBC} 0-0.5 [facility] Platelet mean volume [Entiti c volume] in Blood by Automated countOrdered By: Elizabeth Alvarado on 08-24-2023 Platelet mean volume (Bld) [Entitic vol] 9.8 fL Normal 6.3-10.7 [facility] Comment on above: Order Comment: Reaso n for Exam Type 2 diabetes mellitus without complication, without long- Performed By: #### T SH3 wRFLX, LIPID, CBC, CMP #### [facility] [address] [place] [address] Platelets [#/volume] in Bloo d by Automated countOrdered By: Elizabeth Alvarado on 08-24-2023 Platelets (Bld) [#/Vol] 283 10*3/uL Normal 150-450 [facility] Comment on above: Order Comment: Reaso n for Exam Type 2 diabetes mellitus without complication, without long- Performed By: #### T SH3 wRFLX, LIPID, CBC, CMP #### [address] Potassium [Moles/volume] in Serum or PlasmaOrdered By: Elizabeth Alvarado on 08-24-2023 Potassium [Moles/Vol] 4.3 mmol/L Normal 3.5-5.1 [facility] Comment on above: Order Comment: Reaso n for Exam Type 2 diabetes mellitus without complication, without long- Performed By: #### F ER, CMP, CBC, FE and TIBC #### [address] #### TOMA SERUM, SPE, KAPPA #### [facility] , Protein [Mass/volume] in Ser um or PlasmaOrdered By: Elizabeth Alvarado on 08-24-2023 Protein [Mass/Vol] 7.7 g/dL Normal 6.4-8.9 [facility] Comment on above: Order Comment: Reaso n for Exam Type 2 diabetes mellitus without complication, without long- Performed By: #### F ER, CMP, CBC, FE and TIBC #### [place] [address] [place] #### TOMA SERUM, SPE, KAPPA #### [facility] , Serum globulin measurement b y calculation (mass/volume)Ordered By: Elizabeth Alvarado on 08-24-2023 Globulin (S) [Mass/Vol] 3.4 g/dL Normal [facility] Comment on above: Order Comment: Reaso n for Exam Type 2 diabetes mellitus without complication, without long- Performed By: #### F ER, CMP, CBC, FE and TIBC #### [facility] [address] [place] [address] #### TOMA SERUM, SPE, KAPPA #### [facility] , Serum or plasma albumin/glob ulin mass ratioOrdered By: Elizabeth Alvarado on 08-24-2023 Albumin/Globulin [Mass ratio] 1.3 {ratio} [facility] Comment on above: Order Comment: Reaso n for Exam Type 2 diabetes mellitus without complication, without long- Performed By: #### F ER, CMP, CBC, FE and TIBC #### [facility] [address] [place] [address] [place] #### TOMA SERUM, SPE, KAPPA #### [facility] , Serum or plasma anion gap de terminationOrdered By: Elizabeth Alvarado on 08-24-2023 Anion gap [Moles/Vol] 18.1 mmol/L High 6.0-15.0 [facility] Comment on above: Order Comment: Reaso n for Exam Type 2 diabetes mellitus without complication, without long- Performed By: #### F ER, CMP, CBC, FE and TIBC #### [facility] [address] [place] [address] [place] #### TOMA SERUM, SPE, KAPPA #### [facility] , Serum or plasma high density lipoprotein (HDL) cholesterol measurementOrdered By: Elizabeth Alvarado on 08-24-2023 Cholesterol in HDL [Mass/Vol] 60 mg/dL Normal 23-92 [facility] Comment on above: HDL CHOL ATP-III CLA [...] ER, CMP, CBC, FE and TIBC #### [facility] [address] [place] [address] #### TOMA SERUM, SPE, KAPPA #### [facility] , Serum or plasma total choles terol/high density lipoprotein (HDL) cholesterol mass ratOrdered By: Elizabeth Alvarado on 08-24-2023 Cholesterol.total/Choles terol in HDL [Mass ratio] 2.7 {ratio} Normal <5.0 [facility] Comment on above: Order Comment: Reaso n for Exam Type 2 diabetes mellitus without complication, without long- Performed By: #### F ER, CMP, CBC, FE and TIBC #### [facility] [address] [place] [address] [place] #### TOMA SERUM, SPE, KAPPA #### [facility] , Sodium [Moles/volume] in Ser um or PlasmaOrdered By: Elizabeth Alvarado on 08-24-2023 Sodium [Moles/Vol] 139 mmol/L Normal 136-145 [facility] Comment on above: Order Comment: Reaso n for Exam Type 2 diabetes mellitus without complication, without long- Performed By: #### F ER, CMP, CBC, FE and TIBC #### [facility] [address] [place] [address] [place] #### TOMA SERUM, SPE, KAPPA #### [facility] , Thyroid Stim Hormone w/Rflxo n 08-24-2023 Thyroid Stim Hormone w/Rflx 2.40 u[iU]/mL Normal 0.45-5.33 [facility] Comment on above: Order Comment: Reaso n for Exam Type 2 diabetes mellitus without complication, without long- Result Comment: PERF ORMED BY: [place] [address] PATHOLOGIST PLASTIC EXTRUDING MACHINE OPERATOR MELODY ELAM M.D. Performed By: #### F ER, CMP, CBC, FE and TIBC #### [facility] [address] [place] [address] [place] #### TOMA SERUM, SPE, KAPPA #### [facility] , Thyrotropin [Units/volume] i n Serum or PlasmaOrdered By: Elizabeth Alvarado on 08-24-2023 TSH Qn 2.40 m[IU]/L 0.45-5.33 [facility] Triglyceride [Mass/volume] i n Serum or PlasmaOrdered By: Elizabeth Alvarado on 08-24-2023 Triglyceride [Mass/Vol] 112 mg/dL 0-149 F [facility] Comment on above: TRIG ATP III CLASSIF ICATIONTRIG less than 150 mg/dL NormalTRIG 150-199 mg/dL Borderline highTRIG 200-500 mg/dL High TRIG greater than 500 mg/dL Very highStandard traceable to the Center for Disease Conrtrol and Prevention (CDC) test method. Urea nitrogen [Mass/volume] in Serum or PlasmaOrdered By: Elizabeth Alvarado on 08-24-2023 Urea nitrogen [Mass/Vol] 17 mg/dL Normal 7-25 [facility] Comment on above: Order Comment: Reaso n for Exam Type 2 diabetes mellitus without complication, without long- Performed By: #### F ER, CMP, CBC, FE and TIBC #### [facility] [address] [place] [address] [place] #### TOMA SERUM, SPE, KAPPA #### [facility] , Urine microalbumin/creatinin e mass ratioOrdered By: Elizabeth Alvarado on 08-24-2023 Albumin/Creatinine DL <= 20 mg/L (U) [Mass ratio] TNP [facility] Comment on above: Test not performed MM screening mammo BI w/CADo n 05-10-2023 MM screening mammo BI w/CAD [facility] [address] [place] [address] Mammography Report Signed Patient: Geeta Shelton MR#: [id number] : 1970 Acct:[id number] Age/Sex: 53 / F ADM Date: 05/10/23 Loc: [place] Room: Type: [facility] Attending Dr: MARII Ruiz APRN Copies to: [...] Mary Colon M.D.05/10/2023 10:10 AM Dictation Location: [facility] Transcribed By: [facility] 05/10/23 1010 Dictated By: Mary Colon MD 05/10/23 1007 Signed By: 05/10/23 1010 Normal [facility] Established Visit (Orthopaed [...] grammatical areas may persist related to the [employer] software Merrill Alejandro PA-C . Active Problems [...] grammatical areas may persist related to the dotloopon software Acosta Schafer MD Senior Attending Physician [facility] [place] . Active Problems Problems Acute pain of [...] 1 tablet daily Results/Data Xray Knee 3 [id number] 01:48PMAcosta Schafer Test NameResultFlagReference Xray Knee 3 View(Report) FINAL REPORT Interpreted by: ACOSTA SCHAFER BURTON, MD 09/22/22 14:13 Patient Name: GEETA SHELTON STUDY: KNEE; 3 VIEWS; Right; 09/22/2022 1:48 pm INDICATION: pain Z96.659: Status post total knee replacement. ACCESSION NUMBER(S): [id number] ORDERING CLINICIAN: ACOSTA SCHAFER FINDINGS: Right knee [...] Status post total knee replacement. ACCESSION NUMBER(S): [id number] ORDERING CLINICIAN: ACOSTA SCHAFER FINDINGS: Right knee three views. Status post revision total knee replacement components in good position no signs of fracture dislocation or other bony abnormalities Electronically signed by: ACOSTA SCHAFER MD Normal [facility] XR Knee 3 Views Normal [facility] Work Phone: Alanine aminotransferase [En zymatic activity/volume] in Serum or PlasmaOrdered By: Zoey Ramirez on 08-17-2022 ALT [Catalytic activity/Vol] 45 U/L 7-52 [facility] Albumin [Mass/volume] in Ser um or PlasmaOrdered By: Zoey Ramirez on 08-17-2022 Albumin [Mass/Vol] 3.7 g/dL 2.9-4.4 [facility] Albumin [Mass/volume] in Ser um or Plasma by Bromocresol green (BCG) dye binding methoOrdered By: Zoey Ramirez on 08-17-2022 Albumin BCG dye [Mass/Vol] 4.1 g/dL 3.5-5.7 [facility] Albumin/Protein.total in 24 hour Urine by ElectrophoresisOrdered By: Zoey Ramirez on 08-17-2022 Albumin Elph (24H U) [Mass fraction] 59.9 % . [facility] Alkaline phosphatase [Enzyma tic activity/volume] in Serum or PlasmaOrdered By: Zoey Ramirez on 08-17-2022 ALP [Catalytic activity/Vol] 90 U/L 34-104 [facility] Aspartate aminotransferase [ Enzymatic activity/volume] in Serum or PlasmaOrdered By: Zoey Ramirez on 08-17-2022 AST [Catalytic activity/Vol] 40 U/L 13-39 [facility] Basophils Auto (Bld) [#/Vol] Ordered By: Zoey Ramirez on 08-17-2022 Basophils (Bld) [#/Vol] 0.1 10*3/uL 0.0-0.2 [facility] Basophils/100 WBC Auto (Bld) Ordered By: Zoey Ramirez on 08-17-2022 Basophils/100 WBC (Bld) 0.9 % . [facility] Bilirubin.total [Mass/volume ] in Serum or PlasmaOrdered By: Zoey Ramirez 08-17-2022 Bilirubin [Mass/Vol] 0.4 mg/dL 0.3-1.0 [facility] Calcium [Mass/volume] in Ser um or PlasmaOrdered By: Zoey Ramirez on 08-17-2022 Calcium [Mass/Vol] 9.1 mg/dL 8.6-10.3 [facility] Carbon dioxide, total [Moles /volume] in Serum or PlasmaOrdered By: Zoey Ramirez on 08-17-2022 CO2 [Moles/Vol] 27.9 mmol/L 21.0-31.0 [facility] Chloride [Moles/volume] in S hugo or PlasmaOrdered By: Zoey Ramirez on 08-17-2022 Chloride [Moles/Vol] 100 mmol/L 98-107 [facility] Creatinine [Mass/volume] in Serum or PlasmaOrdered By: Zoey Ramirez on 08-17-2022 Creatinine [Mass/Vol] 0.71 mg/dL 0.60-1.20 [facility] Eosinophils Auto (Bld) [#/Vo l]Ordered By: Zoey Ramirez on 08-17-2022 Eosinophils (Bld) [#/Vol] 0.3 10*3/uL 0.0-0.45 [facility] Eosinophils/100 WBC Auto (Bl d)Ordered By: Zoey Ramirez on 08-17-2022 Eosinophils/100 WBC (Bld) 3.1 % . [facility] Erythrocyte distribution wid th Auto (RBC) [Ratio]Ordered By: Zoey Ramirez on 08-17-2022 Erythrocyte distribution width (RBC) [Ratio] 16.5 % 11.9-15.3 [facility] Ferritin [Mass/volume] in Se rum or PlasmaOrdered By: Zoey Ramirez on 08-17-2022 Ferritin [Mass/Vol] 85.3 ng/mL 11.0-306.8 [facility] Folate [Mass/volume] in Seru m or PlasmaOrdered By: Zoey Ramirez on 08-17-2022 Folate [Mass/Vol] 15.1 ng/mL >5.9 [facility] Comment on above: Folate reference ran ge: >5.9 ng/mlThe WHO technical consultation on folate and vitamin [id number] has determined that folate concentrations lessthan 4 ng/ml are considered deficient. Gamma globulin/Protein.total in 24 hour Urine by ElectrophoresisOrdered By: Zoey Ramirez on 08-17-2022 Gamma globulin Elph (24H U) [Mass fraction] 15.3 % . [facility] Globulin Calc (S) [Mass/Vol] Ordered By: Zoey Ramirez on 08-17-2022 Globulin (S) [Mass/Vol] 4.0 g/dL [facility] Glucose [Mass/volume] in Ser um or PlasmaOrdered By: Zoey Ramirez on 08-17-2022 Glucose [Mass/Vol] 142 mg/dL 70-100 [facility] Comment on above: ADA recommended refe rence rangeRandom Glucose Reference Range is dependent on time and content of last meal. Glucose of more than 200 mg/dL in a nonstressed, ambulatory subject supports the diagnosis of Diabetes Mellitus. Hematocrit Auto (Bld) [Volum e fraction]Ordered By: Zoey Ramirez on 08-17-2022 Hematocrit (Bld) [Volume fraction] 41.3 % 34.0-46.4 [facility] Hemoglobin [Mass/volume] in BloodOrdered By: Zoey Ramirez on 08-17-2022 Hemoglobin (Bld) [Mass/Vol] 13.2 g/dL 11.8-15.4 [facility] IgA [Mass/volume] in Serum o r PlasmaOrdered By: Zoey Ramirez on 08-17-2022 IgA [Mass/Vol] 498 mg/dL 87-352 [facility] IgG [Mass/volume] in Serum o r PlasmaOrdered By: Zoey Ramirez on 08-17-2022 IgG [Mass/Vol] 1834 mg/dL 586-1602 [facility] IgM [Mass/volume] in Serum o r PlasmaOrdered By: Zoey Ramirez on 08-17-2022 IgM [Mass/Vol] 124 mg/dL 26-217 [facility] Comment on above: Performed at: [facility] [address] [id number] Director: Jeyson Duncan PhD, Phone: [phone] Immunofixation for UrineOrde red By: Zoey Ramirez on 08-17-2022 Interpretation Immunofixation (U) [Interp] See comment . [facility] Comment on above: No monoclonality det ected.Performed at: [facility] [address] [id number] Director: Jeyson Duncan PhD, Phone: [phone] Immunoglobulin light chains. kappa.free [Mass/volume] in SerumOrdered By: Zoey Ramirez on 08-17-2022 Immunoglobulin light chains.kappa.free (S) [Mass/Vol] 47.1 mg/L 3.3-19.4 [facility] Immunoglobulin light chains. kappa.free/Immunoglobulin light chains.lambda.free [MassOrdered By: Zoey Ramirez on 08-17-2022 Immunoglobulin light chains.kappa.free/Immuno globulin light chains.lambda.free (S) [Mass ratio] 1.65 0.26-1.65 [facility] Comment on above: Performed at: [address] [id number] Director: Jeyson Duncan PhD, Phone: [phone] Immunoglobulin light chains. lambda.free [Mass/volume] in Serum or PlasmaOrdered By: Zoey Ramirez on 08-17-2022 Immunoglobulin light chains.lambda.free [Mass/Vol] 28.6 mg/L 5.7-26.3 [facility] Iron [Mass/volume] in Serum or PlasmaOrdered By: Zoey Ramirez on 08-17-2022 Iron [Mass/Vol] 41 ug/dL 50-212 [facility] Iron binding capacity [Mass/ volume] in Serum or PlasmaOrdered By: Zoey Ramirez on 08-17-2022 Iron binding capacity [Mass/Vol] 344 ug/dL 255-450 [facility] Iron saturation [Mass Fracti on] in Serum or PlasmaOrdered By: Zoey Ramirez on 08-17-2022 Iron saturation [Mass fraction] 11.9 % 20-50 [facility] Leukocytes [#/volume] correc silverio for nucleated erythrocytes in Blood by Automated counOrdered By: Zoey Ramirez on 08-17-2022 WBC corrected for nucl RBC Auto (Bld) [#/Vol] 9.9 10*3/uL 3.8-11.6 [facility] Lymphocytes Auto (Bld) [#/Vo l]Ordered By: Zoey Ramirez on 08-17-2022 Lymphocytes (Bld) [#/Vol] 2.8 10*3/uL 1.00-4.8 [facility] Lymphocytes/100 WBC Auto (Bl d)Ordered By: Zoey Ramirez on 08-17-2022 Lymphocytes/100 WBC (Bld) 28.5 % . [facility] MCH Auto (RBC) [Entitic mass ]Ordered By: Zoey Ramirez on 08-17-2022 MCH (RBC) [Entitic mass] 24.9 pg 24.7-34.3 [facility] MCHC Auto (RBC) [Mass/Vol]Or dered By: Zoey Ramirez on 08-17-2022 MCHC (RBC) [Mass/Vol] 32.0 g/dL 32.0-35.0 [facility] MCV Auto (RBC) [Entitic vol] Ordered By: Zoey Ramirez on 08-17-2022 MCV (RBC) [Entitic vol] 77.8 fL 80-100 F [facility] Monocytes Auto (Bld) [#/Vol] Ordered By: Zoey Ramirez on 08-17-2022 Monocytes (Bld) [#/Vol] 0.6 10*3/uL 0.0-0.8 [facility] Monocytes/100 WBC Auto (Bld) Ordered By: Zoey Ramirez on 08-17-2022 Monocytes/100 WBC (Bld) 5.9 % . [facility] Neutrophils Auto (Bld) [#/Vo l]Ordered By: Zoey Ramirez on 08-17-2022 Neutrophils (Bld) [#/Vol] 6.1 10*3/uL 1.8-7.7 [facility] Neutrophils/100 WBC Auto (Bl d)Ordered By: Zoey Ramirez on 08-17-2022 Neutrophils/100 WBC (Bld) 61.6 % . [facility] No Panel InformationOrdered By: Zoey Ramirez on 08-17-2022 Estimated GFR (CKD-EPI) > 60.0 mL/Min [facility]acy Creatinine Clearance (Chem 122.85 [facility] Protein Electrophoresis M-Antwan Not observed g/dL Not Observed [facility] Protein Electrophoresis Note See comment . [facility] Comment on above: Protein electrophore sis scan will follow via computer,mail, or eradicator delivery.Performed at: [address] [id number] Director: Jeyson Duncan PhD, Phone: [phone] Serum Immunofixation Comment: . [facility] Comment on above: Presence of monoclon al protein is unclear at this time. Suggestrepeat in 3 to 6 months if clinically indicated. Urine Random Prot Electrophor Note See comment . [facility] Comment on above: Protein electrophore sis scan will follow via computer,mail, or eradicator delivery.Performed at: [address] [id number] Director: Jeyson Duncan PhD, Phone: [phone] Nucleated erythrocytes [Pres ence] in Blood by Automated countOrdered By: Zoey Ramirez on 08-17-2022 Nucleated RBC Auto Ql (Bld) 0.1 /100{WBC} 0-0.5 [facility] Platelet mean volume Auto (B ld) [Entitic vol]Ordered By: Zoey Ramirez on 08-17-2022 Platelet mean volume (Bld) [Entitic vol] 8.5 fL 6.3-10.7 [facility] Platelets Auto (Bld) [#/Vol] Ordered By: Zoey Ramirez on 08-17-2022 Platelets (Bld) [#/Vol] 345 10*3/uL 150-450 [facility] Potassium [Moles/volume] in Serum or PlasmaOrdered By: Zoey Ramirez on 08-17-2022 Potassium [Moles/Vol] 4.7 mmol/L 3.5-5.1 [facility] Protein [Mass/volume] in Ser um or PlasmaOrdered By: Zoey Ramirez on 08-17-2022 Protein [Mass/Vol] 8.1 g/dL 6.4-8.9 [facility] Protein [Mass/Vol] 8.0 g/dL 6.0-8.5 [facility] Protein [Mass/volume] in Uri neOrdered By: Zoey Ramirez on 08-17-2022 Protein (U) [Mass/Vol] 75.0 mg/dL Not Estab. [facility] Protein.monoclonal/Protein.t otal in 24 hour Urine by ElectrophoresisOrdered By: Zoey Ramirez on 08-17-2022 Protein.monoclonal Elph (24H U) [Mass fraction] Not observed % Not Observed [facility] RBC Auto (Bld) [#/Vol]Ordere d By: Zoey Ramirez on 08-17-2022 RBC (Bld) [#/Vol] 5.31 10*6/uL 3.60-5.00 [facility] Serum globulin measurement ( mass/volume)Ordered By: Zoey Ramirez on 08-17-2022 Globulin (S) [Mass/Vol] 4.3 g/dL 2.2-3.9 [facility] Serum or plasma albumin/glob ulin mass ratioOrdered By: Zoey Ramirez on 08-17-2022 Albumin/Globulin [Mass ratio] 1.0 {ratio} [facility] Albumin/Globulin [Mass ratio] 0.9 {ratio} 0.7-1.7 [facility] Serum or plasma alpha 1 glob ulin measurement by electrophoresis (mass/volume)Ordered By: Zoey Ramirez on 08-17-2022 Alpha 1 globulin Elph [Mass/Vol] 0.3 g/dL 0.0-0.4 [facility] Serum or plasma alpha 2 glob ulin measurement by electrophoresis (mass/volume)Ordered By: Zoey Ramirez on 08-17-2022 Alpha 2 globulin Elph [Mass/Vol] 0.8 g/dL 0.4-1.0 [facility] Serum or plasma anion gap de terminationOrdered By: Zoey Ramirez on 08-17-2022 Anion gap [Moles/Vol] 12.8 mmol/L 6.0-15.0 [facility] Serum or plasma beta globuli n measurement by electrophoresis (mass/volume)Ordered By: Zoey Ramirez on 08-17-2022 Beta globulin Elph [Mass/Vol] 1.3 g/dL 0.7-1.3 [facility] Serum or plasma gamma globul in measurement by electrophoresis (mass/volume)Ordered By: Zoey Ramirez on 08-17-2022 Gamma globulin Elph [Mass/Vol] 1.9 g/dL 0.4-1.8 [facility] Sodium [Moles/volume] in Ser um or PlasmaOrdered By: Zoey Ramirez on 08-17-2022 Sodium [Moles/Vol] 136 mmol/L 136-145 [facility] Transferrin [Mass/volume] in Serum or PlasmaOrdered By: Zoey Ramirez on 08-17-2022 Transferrin [Mass/Vol] 246 mg/dL 203-362 [facility] Urea nitrogen [Mass/volume] in Serum or PlasmaOrdered By: Zoey Ramirez on 08-17-2022 Urea nitrogen [Mass/Vol] 23 mg/dL 7-25 [facility] Urine alpha 1 globulin/total protein by electrophoresisOrdered By: Zoey Ramirez on 08-17-2022 Alpha 1 globulin Elph (U) [Mass fraction] 4.5 % . [facility] Urine alpha 2 globulin/total protein ratio by electrophoresisOrdered By: Zoey Ramirez on 08-17-2022 Alpha 2 globulin Elph (U) [Mass fraction] 7.7 % . [facility] Urine beta globulin measurem ent by electrophoresis (mass/volume)Ordered By: Zoey Ramirez on 08-17-2022 Beta globulin Elph (U) [Mass/Vol] 12.6 % . [facility] Vitamin B12 ser/plasOrdered By: Zoey Ramirez on 08-17-2022 Cobalamin (Vitamin B12) [Mass/Vol] 387 pg/mL 180-914 [facility] WBC Auto (Bld) [#/Vol]Ordere d By: Zoey Ramirez on 08-17-2022 WBC (Bld) [#/Vol] 9.9 10*3/uL 3.8-11.6 [facility] Established Visit (Orthopaed ic Surgery)on 08-11-2022 [...] to do her outpatient physical therapy at [facility]. She has a few visits left. [...] grammatical areas may persist related to the [employer] software Merrill Alejandro PA-C . Active Problems [...] on 07-23-2022 Albumin [Mass/Vol] 3.3 g/dL 2.9-4.4 [facility] Creatine kinase [Enzymatic a ctivity/volume] in Serum or PlasmaOrdered By: Lorrie Baig on 07-23-2022 CK [Catalytic activity/Vol] 51 U/L 30- [facility] Erythrocyte sedimentation ra te by Photometric methodOrdered By: Lorrie Baig on 07-23-2022 ESR Photometric method (Bld) [Velocity] 65 mm/hr 0-29 [facility] Folate [Mass/volume] in Seru m or PlasmaOrdered By: Lorrie Baig on 07-23-2022 Folate [Mass/Vol] 12.8 ng/mL >5.9 [facility] Comment on above: Folate reference ran ge: >5.9 ng/mlThe WHO technical consultation on folate and vitamin [id number] has determined that folate concentrations lessthan 4 ng/ml are considered deficient. Magnesium [Mass/volume] in S hugo or PlasmaOrdered By: Lorrie Baig on 07-23-2022 Magnesium [Mass/Vol] 1.8 mg/dL 1.9-2.7 [facility] No Panel InformationOrdered By: Lorrie Baig on 07-23-2022 Protein Electrophoresis Interpret See comment . [facility] Comment on above: Faint band in gamma region suspicious for monoclonalimmunoglobulin. This band may represent a benign spike asseen in older people or could be a paraprotein as seen inMultiple Myeloma, Waldenstrom's Macroglobulinemia orLymphoma. Depending on clinical circumstances, furtherdiagnostic studies may include serum immunofixation orserum free light chain quantitation.Performed at: [facility] [address] [id number] Director: Jeyson Duncan PhD, Phone: [phone] Protein Electrophoresis M-Antwan Comment: g/dL Not Observed [facility] Comment on above: ASYMMETRICAL GAMMA Protein Electrophoresis Note See comment . [facility] Comment on above: Protein electrophore sis scan will follow via computer,mail, or eradicator delivery. Phosphate [Mass/volume] in S hugo or PlasmaOrdered By: Lorrie Baig on 07-23-2022 Phosphate [Mass/Vol] 4.5 mg/dL 3.7-7.2 [facility] Protein [Mass/volume] in Ser um or PlasmaOrdered By: Lorrie Baig on 07-23-2022 Protein [Mass/Vol] 7.2 g/dL 6.0-8.5 [facility] Serum globulin measurement ( mass/volume)Ordered By: Lorrie Baig on 07-23-2022 Globulin (S) [Mass/Vol] 3.9 g/dL 2.2-3.9 [facility] Serum or plasma albumin/glob ulin mass ratioOrdered By: Lorrie Baig on 07-23-2022 Albumin/Globulin [Mass ratio] 0.8 {ratio} 0.7-1.7 [facility] Serum or plasma alpha 1 glob ulin measurement by electrophoresis (mass/volume)Ordered By: Lorrie Baig on 07-23-2022 Alpha 1 globulin Elph [Mass/Vol] 0.3 g/dL 0.0-0.4 [facility] Serum or plasma alpha 2 glob ulin measurement by electrophoresis (mass/volume)Ordered By: Lorrie Baig on 07-23-2022 Alpha 2 globulin Elph [Mass/Vol] 0.7 g/dL 0.4-1.0 [facility] Serum or plasma beta globuli n measurement by electrophoresis (mass/volume)Ordered By: Lorrie Baig on 07-23-2022 Beta globulin Elph [Mass/Vol] 1.2 g/dL 0.7-1.3 [facility] Serum or plasma gamma globul in measurement by electrophoresis (mass/volume)Ordered By: Lorrie Baig on 07-23-2022 Gamma globulin Elph [Mass/Vol] 1.7 g/dL 0.4-1.8 [facility] Thyrotropin [Units/volume] i n Serum or PlasmaOrdered By: Lorrie Baig on 07-23-2022 TSH Qn 4.76 m[IU]/L 0.45-5.33 [facility] Vitamin B12 ser/plasOrdered By: Lorrie Baig on 07-23-2022 Cobalamin (Vitamin B12) [Mass/Vol] 358 pg/mL 180-914 [facility] KNEE 3 VIEWSon 07-14-2022 KNEE 3 VIEWS Patient Name: GEETA SHELTON STUDY: KNEE; 3 VIEWS; Right; 07/14/2022 8:47 am INDICATION: pain Z96.659: Status post total knee replacement. ACCESSION NUMBER(S): [id number] ORDERING CLINICIAN: ACOSTA SCHAFER FINDINGS: Right knee three views. Status post revision type total knee replacement components in good position no signs of fracture dislocation or other bony abnormality dee in the soft tissues anteriorly. Electronically signed by: ACOSTA SCHAFER MD [facility] Post Op (Orthopaedic Surgery )on 07-14-2022 Post [...] she will most likely do this at [facility] in [place]. Physical exam General: No acute distress and [...] grammatical areas may persist related to the [employer] software Merrill Alejandro PA-C . Active Problems Problems Acute pain of both knees (338.19,719.46) (M25.561,M25.562) Status post total knee replacement (V43.65) (Z96.659) Allergies Medication Penicillins Recorded By: Tarsha Murray; 05/18/2022 8:47:33 AM Current Meds Medication NameInstruction Xarelto 10 MG Oral TabletTake 1 tablet daily Results/Data Xray Knee 3 [id number] 08:47AMSAcosta steward Test NameResultFlagReference Xray Knee 3 View(Report) FINAL REPORT Interpreted by: ACOSTA SCHAFER BURTON, MD 07/14/22 08:49 Patient Name: GEETA SHELTON STUDY: KNEE; 3 VIEWS; Right; 07/14/2022 8:47 am INDICATION: pain Z96.659: Status post total knee replacement. ACCESSION NUMBER(S): [id number] ORDERING CLINICIAN: ACOSTA SCHAFER FINDINGS: Right knee [...] Radiologyon 07-14-2022 XR Knee 3 Views Normal -[facility] Work Phone: Basic Metabolic Panel Reflex Mgon 07-03-2022 Anion gap [Moles/Vol] 10 mmol/L Normal 9-15 [facility] Comment on above: Performed By: #### B MPX #### [facility] [address] [place] [address] Calcium [Mass/Vol] 9.2 mg/dL Normal 8.5-9.9 [facility] Comment on above: Performed By: #### B MPX #### [facility] [address] [place] [address] Chloride [Moles/Vol] 100 mmol/L Normal 95-107 [facility] Comment on above: Performed By: #### B MPX #### [facility] [address] [place] [address] CO2 [Moles/Vol] 27 mmol/L Normal 20-31 [facility] Comment on above: Performed By: #### B MPX #### [facility] [address] [place] [address] Creatinine [Mass/Vol] 0.51 mg/dL Normal 0.50-0.90 [facility] Comment on above: Performed By: #### B MPX #### [facility] [address] [place] [address] GFR >60.0 Normal >60 [facility] Comment on above: Result Comment: Pedi [...] secretion. Performed By: #### B MPX #### [facility] [address] [place] [address] Glucose [Mass/Vol] 132 mg/dL Critically high 70-99 [facility] Comment on above: Performed By: #### B MPX #### [facility] [address] [place] [address] Magnesium [Moles/Vol] 4.6 mmol/L Normal 3.4-4.9 [facility] Comment on above: Performed By: #### B MPX #### [facility] [address] [place] [address] Sodium [Moles/Vol] 137 mmol/L Normal 135-144 [facility] Comment on above: Performed By: #### B MPX #### [facility] [address] [place] [address] Urea nitrogen [Mass/Vol] 12 mg/dL Normal 6-20 [facility] Comment on above: Performed By: #### B MPX #### [facility] [address] [place] [address] Basic Metabolic Panel w/ Ref hillary to MGon 07-03-2022 Anion gap [Moles/Vol] 10 mmol/L [facility] Calcium [Mass/Vol] 9.2 mg/dL 8.5 - 9.9 mg/dL [facility] Chloride [Moles/Vol] 100 mmol/L [facility] CO2 [Moles/Vol] 27 mmol/L [facility] Creatinine [Mass/Vol] 0.51 mg/dL 0.50 - 0.90 mg/dL [facility] GFR/1.73 sq M.predicted MDRD (S/P/Bld) [Vol rate/Area] 60 - PINF [facility] Comment on above: Pediatric calculator link [...] 132 mg/dL High 70 - 99 mg/dL [facility] Interpretation and review of laboratory results Abnormal [facility] Potassium reflex Magnesium 4.6 [facility] Sodium [Moles/Vol] 137 mmol/L [facility] Urea nitrogen (BldV) [Mass/Vol] 12 mg/dL 6 - 20 mg/dL [facility] CBCon 07-03-2022 Hematocrit (Bld) [Volume fraction] 39.9 % 37.0 - 47.0 % [facility] Hemoglobin (Bld) [Mass/Vol] 12.9 g/dL 12.0 - 16.0 g/dL [facility] Interpretation and review of laboratory results Abnormal [facility] MCH (RBC) [Entitic mass] 25.7 pg Low 27. 0 - 31.3 pg [facility] MCHC (RBC) [Mass/Vol] 32.3 % Low 33.0 - 37.0 % [facility] MCV (RBC) [Entitic vol] 79.6 fL 79.4 - 94.8 fL [facility] Platelet distribution width (Bld) [Ratio] 16.5 % High 11.5 - 14.5 % [facility] Platelets (Bld) [#/Vol] 230 10*3/uL 130 - 400 K/uL [facility] RBC (Bld) [#/Vol] 5.02 10*6/uL [facility] WBC (Bld) [#/Vol] 9.2 10*3/uL 4.8 - 10.8 K/uL [facility] CBC With Platelet No Differe ntialon 07-03-2022 Erythrocyte distribution width (RBC) [Ratio] 16.5 % Critically high 11.5-14.5 [facility] Comment on above: Performed By: #### C BCND #### [facility] [address] [place] [address] Hematocrit (Bld) [Volume fraction] 39.9 % Normal 37.0-47.0 [facility] Comment on above: Performed By: #### C BCND #### [facility] [address] [place] [address] Hemoglobin (Bld) [Mass/Vol] 12.9 g/dL Normal 12.0-16.0 [facility] Comment on above: Performed By: #### C BCND #### [facility] [address] [place] [address] MCH (RBC) [Entitic mass] 25.7 pg Low 27.0-31.3 [facility] Comment on above: Performed By: #### C BCND #### [facility] [address] [place] [address] MCHC 32.3 % Low 33.0-37.0 [facility] Comment on above: Performed By: #### C BCND #### [facility] [address] [place] [address] MCV (RBC) [Entitic vol] 79.6 fL Normal 79.4-94.8 [facility] Comment on above: Performed By: #### C BCND #### [facility] [address] [place] [address] Platelets (Bld) [#/Vol] 230 10*3/uL Normal 130-400 [facility] Comment on above: Performed By: #### C BCND #### [facility] [address] [place] [address] RBC (Bld) [#/Vol] 5.02 10*6/uL Normal 4.20-5.40 [facility] Comment on above: Performed By: #### C BCND #### [facility] [address] [place] [address] WBC (Bld) [#/Vol] 9.2 10*3/uL Normal 4.8-10.8 [facility] Comment on above: Performed By: #### C BCND #### [facility] [address] [place] [address] Basic Metabolic Panel Reflex Mgon 07-02-2022 Anion gap [Moles/Vol] 8 mmol/L Low 9-15 [facility] Comment on above: Order Comment: Daja ction has been rescheduled by HERAM at 07/02/2022 05:49 Reason: Come back last per rn fouzia Performed By: #### B MPX #### [facility] [address] [place] [address] Calcium [Mass/Vol] 8.9 mg/dL Normal 8.5-9.9 [facility] Comment on above: Order Comment: Daja ction has been rescheduled by HERAM at 07/02/2022 05:49 Reason: Come back last per rn fouzia Performed By: #### B MPX #### [facility] [address] [place] [address] Chloride [Moles/Vol] 100 mmol/L Normal 95-107 [facility] Comment on above: Order Comment: Daja ction has been rescheduled by HERAM at 07/02/2022 05:49 Reason: Come back last per rn fouzia Performed By: #### B MPX #### [facility] [address] [place] [address] CO2 [Moles/Vol] 27 mmol/L Normal 20-31 [facility] Comment on above: Order Comment: Colle ction has been rescheduled by HERAM at 07/02/2022 05:49 Reason: Come back last per rn fouzia Performed By: #### B MPX #### [facility] [address] [place] [address] Creatinine [Mass/Vol] 0.61 mg/dL Normal 0.50-0.90 [facility] Comment on above: Order Comment: Colle ction has been rescheduled by HERAM at 07/02/2022 05:49 Reason: Come back last per rn fouzia Performed By: #### B MPX #### [facility] [address] [place] [address] GFR >60.0 Normal >60 [facility] Comment on above: Order Comment: [...] secretion. Performed By: #### B MPX #### [facility] [address] [place] [address] Glucose [Mass/Vol] 144 mg/dL Critically high 70-99 [facility] Comment on above: Order Comment: Daja zamarripa has been rescheduled by HERAM at 07/02/2022 05:49 Reason: Come back last per rn fouzia Performed By: #### B MPX #### [facility] [address] [place] [address] Magnesium [Moles/Vol] 4.8 mmol/L Normal 3.4-4.9 [facility] Comment on above: Order Comment: Daja zamarripa has been rescheduled by HERAM at 07/02/2022 05:49 Reason: Come back last per rn fouzia Performed By: #### B MPX #### [facility] [address] [place] [address] Sodium [Moles/Vol] 135 mmol/L Normal 135-144 [facility] Comment on above: Order Comment: Daja zamarripa has been rescheduled by HERAM at 07/02/2022 05:49 Reason: Come back last per rn fouzia Performed By: #### B MPX #### [facility] [address] [place] [id number] Urea nitrogen [Mass/Vol] 21 mg/dL Critically high 6-20 [facility] Comment on above: Order Comment: Daja zamarripa has been rescheduled by VALDO at 07/02/2022 05:49 Reason: Come back last per rn fouzia Performed By: #### B MPX #### [facility] [address] [place] [address] Basic Metabolic Panel w/ Ref hillary to MGon 07-02-2022 Anion gap [Moles/Vol] 8 mmol/L Low [facility] [employer] Calcium [Mass/Vol] 8.9 mg/dL 8.5 - 9.9 mg/dL [facility] [employer] Chloride [Moles/Vol] 100 mmol/L [facility] [employer] CO2 [Moles/Vol] 27 mmol/L [facility] [employer] Creatinine [Mass/Vol] 0.61 mg/dL 0.50 - 0.90 mg/dL [facility] [employer] GFR/1.73 sq M.predicted MDRD (S/P/Bld) [Vol rate/Area] 60 - [facility] Comment on above: Pediatric calculator link https://www.kidney.org/professionals/kdoqi/gfr_calculatorped [...] 144 mg/dL High 70 - 99 mg/dL [employer] Interpretation and review of laboratory results Abnormal [facility] [employer] Potassium reflex Magnesium 4.8 [facility] [employer] Sodium [Moles/Vol] 135 mmol/L [facility] [employer] Urea nitrogen (BldV) [Mass/Vol] 21 mg/dL High 6 - 20 mg/dL [facility] Bench Collection has been rescheduled by VALDO at 07/02/2022 05:49 Reason: Come back last per kip galdamezfouzia [facility] CBCon 07-02-2022 Hematocrit (Bld) [Volume fraction] 40.3 % 37.0 - 47.0 % [facility] Hemoglobin (Bld) [Mass/Vol] 12.9 g/dL 12.0 - 16.0 g/dL [facility] Interpretation and review of laboratory results Abnormal [facility] MCH (RBC) [Entitic mass] 25.5 pg Low 27. 0 - 31.3 pg [facility] MCHC (RBC) [Mass/Vol] 32.1 % Low 33.0 - 37.0 % [facility] MCV (RBC) [Entitic vol] 79.6 fL 79.4 - 94.8 fL [facility] Platelet distribution width (Bld) [Ratio] 16.3 % High 11.5 - 14.5 % [facility] Platelets (Bld) [#/Vol] 230 10*3/uL 130 - 400 K/uL [facility] RBC (Bld) [#/Vol] 5.06 10*6/uL [facility] WBC (Bld) [#/Vol] 9.1 10*3/uL 4.8 - 10.8 K/uL [facility] Collection has been rescheduled by VALDO at 07/02/2022 05:49 Reason: Come back last per kip galdamezfouzia [facility] CBC With Platelet No Differe ntialon 07-02-2022 Erythrocyte distribution width (RBC) [Ratio] 16.3 % Critically high 11.5-14.5 [facility] Comment on above: Order Comment: Colle ction has been rescheduled by VALDO at 07/02/2022 05:49 Reason: Come back last per kip reinoso Performed By: #### C BCND #### [facility] [address] [place] [address] Hematocrit (Bld) [Volume fraction] 40.3 % Normal 37.0-47.0 [facility] Comment on above: Order Comment: Daja ctjanie has been rescheduled by HERAM at 07/02/2022 05:49 Reason: Come back last per rn fouzia Performed By: #### C BCND #### [facility] [address] [place] [address] Hemoglobin (Bld) [Mass/Vol] 12.9 g/dL Normal 12.0-16.0 [facility] Comment on above: Order Comment: Daja ctjanie has been rescheduled by HERAM at 07/02/2022 05:49 Reason: Come back last per rn fouzia Performed By: #### C BCND #### [facility] [address] [place] [address] MCH (RBC) [Entitic mass] 25.5 pg Low 27.0-31.3 [facility] Comment on above: Order Comment: Daja ctjanie has been rescheduled by HERAM at 07/02/2022 05:49 Reason: Come back last per rn fouzia Performed By: #### C BCND #### [facility] [address] [place] [address] MCHC 32.1 % Low 33.0-37.0 [facility] Comment on above: Order Comment: Daja zamarripa has been rescheduled by HERAM at 07/02/2022 05:49 Reason: Come back last per rn fouzia Performed By: #### C BCND #### [facility] [address] [place] [address] MCV (RBC) [Entitic vol] 79.6 fL Normal 79.4-94.8 [facility] Comment on above: Order Comment: Daja ctjanie has been rescheduled by HERAM at 07/02/2022 05:49 Reason: Come back last per rn fouzia Performed By: #### C BCND #### [facility] [address] [place] [address] Platelets (Bld) [#/Vol] 230 10*3/uL Normal 130-400 [facility] Comment on above: Order Comment: Daja zamarripa has been rescheduled by HERAM at 07/02/2022 05:49 Reason: Come back last per rn fouzia Performed By: #### C BCND #### [facility] [address] [place] [address] RBC (Bld) [#/Vol] 5.06 10*6/uL Normal 4.20-5.40 [facility] Comment on above: Order Comment: Daja zamarripa has been rescheduled by HERAM at 07/02/2022 05:49 Reason: Come back last per rn fouzia Performed By: #### C BCND #### [facility] [address] [place] [address] WBC (Bld) [#/Vol] 9.1 10*3/uL Normal 4.8-10.8 [facility] Comment on above: Order Comment: Daja zamarripa has been rescheduled by HERAM at 07/02/2022 05:49 Reason: Come back last per rn fouzia Performed By: #### C BCND #### [facility] [address] [place] [address] US DUP UPPER EXTREMITY LEFT VENOUSon 07-02-2022 [...] Jean Sifuentes MD 07/02/22 Final result Normal [facility] No evidence of DVT. [facility] RADIOLOGY EXAMINATION: VENOUS ULTRASOUND OF THE [...] normal color flow study and spectral analysis. [facility] RADIOLOGY Jean Sifuentes MD - 07/02/2022 [...] spectral analysis. IMPRESSION: No evidence of DVT. [employer] Phone: [employer] Phone: Radiology Study observation (narrative) JULIO [employer] Phone: XR KNEE RIGHT (1-2 VIEWS)on 07-01-2022 [...] Jean Sifuentes MD 07/01/22 Final result Normal [facility] Normal postsurgical appearance [facility] RADIOLOGY EXAMINATION: TWO XRAY VIEWS OF [...] are intact. Overlying surgical dee are seen [facility] RADIOLOGY Jean Sifuentes MD - 07/01/2022 [...] dee are seen IMPRESSION: Normal postsurgical appearance [employer] Work Phone: Radiology Study observation (narrative) [employer] Work Phone: XR KNEE RIGHT (1-2 VIEWS)Ord ered By: Jean Sifuentes on 07-01-2022 [employer] Work Phone: MRSA DNA Probe, Nasalon MRSA, DNA, Nasal Negative NEG [employer] Comment on above: NEGATIVE: MRSA DNA n ot detected by nucleic acid amplification. Results should be used as an adjunct to nosocomial control efforts to identify patients needing enhanced precautions. The test is not intended to identify patients with staphylococcal infections. Results should not be used to guide or monitor treatment for MRSA infections. [employer] [address] [place] [address] Specimen Description Swab [employer] [facility] Bench MRSA, DNA, Nasalon 3 MRSA, DNA, Nasal Negative Normal NEG [facility] Comment on above: Result Comment: NEGA TIVE: MRSA DNA not detected by nucleic acid amplification. Results should be used as an adjunct to nosocomial control efforts to identify patients needing enhanced precautions. The test is not intended to identify patients with staphylococcal infections. Results should not be used to guide or monitor treatment for MRSA infections. [employer] [address] [place] [address] Performed By: #### I MRSA #### [facility] [address] [place] [address] EKG 12 LeadOrdered By: Leigh Ann Nash on 06-25-2022 Atrial Rate 73 BPM [employer] Work Phone: P [place] 33 degrees [employer] Work Phone: P-R Interval 160 ms [employer] Work Phone: Q-T Interval 406 ms [employer] Work Phone: QRS Duration 102 ms [employer] Work Phone: QTc Calculation (Bazett) 447 ms [employer] Work Phone: R [place] 74 degrees [employer] Work Phone: T [place] 65 degrees [employer] Work Phone: Ventricular Rate 73 BPM [employer] [employer] Work Phone: [facility] [employer] Work Phone: EKG 12 Leadon 06-25-2022 Normal sinus rhythm Incomplete right bundle branch block Confirmed by LEIGH ANN NASH ([id number]) on 06/25/2022 6:49:48 PM Leigh Ann [place] F, DO - 06/25/2022 Normal sinus rhythm Incomplete right bundle branch block Confirmed by LEIGH ANN NASH ([id number]) on 06/25/2022 6:49:48 PM JULIO REICH [employer] Work Phone: Established Visit (Orthopaed ic Surgery)on 06-25-2022 Established Visit (Orthopaedic Surgery) Chief Complaint Pre-op RT TK-Revision 07/01/22 @ [facility] History of Present Illness This patient has [...] plans on performing outpatient physical therapy at [facility] in [place]. All of the patient's questions and concerns were answered. This note was prepared using voice recognition software. The details of this note are correct and have been reviewed, and corrected to the best of my ability. Some grammatical areas may persist related to the [employer] software Merrill Alejandro PA-C . Active Problems Problems Acute pain of both knees (338.19,719.46) (M25.561,M25.562) Allergies Medication Penicillins Recorded By: Tarsha Murray; 05/18/2022 8:47:33 AM Signatures Electronically signed by : Merrill Alejandro PA-C; Jun 25 2022 2:21PM EST (Author) Normal Klash PT Initial Evaluationon 03-0 PT Initial Evaluation [...] reviewed Visit number: 1 [facility] Subject[facility] Current Episode of Functional Impairment and/or [...] today's treatment with some difficulty. Evaluation Code: 91829 PT Eval: Low Complexity, 32 min(s). Resources provided today: education Signatures Electronically signed by : Natali Tyson, PT DPT; Jun 30 2022 10:08AM EST (Author) Normal [employer] APTTon 06-24-2022 aPTT Coag (Bld) [Time] 30.1 s [facility] Comment on above: Effective 02/27/2020: Heparin Therapeutic Range: 64.0 98.0 seconds. [facility] CBC With Platelet and Differ entialon 06-24-2022 Basophils (Bld) [#/Vol] 0.1 10*3/uL Normal 0.0-0.2 [facility] Comment on above: Performed By: #### C BCWD #### [facility] [address] [place] [address] Basophils/100 WBC (Bld) 0.6 % Normal [facility] Comment on above: Performed By: #### C BCWD #### [facility] [address] [place] [address] Eosinophils (Bld) [#/Vol] 0.1 10*3/uL Normal 0.0-0.7 [facility] Comment on above: Performed By: #### C BCWD #### [facility] [address] [place] [address] Eosinophils/100 WBC (Bld) 1.6 % Normal [facility] Comment on above: Performed By: #### C BCWD #### [facility] [address] [place] [address] Erythrocyte distribution width (RBC) [Ratio] 16.4 % Critically high 11.5-14.5 [facility] Comment on above: Performed By: #### C BCWD #### [facility] [address] [place] [address] Hematocrit (Bld) [Volume fraction] 44.4 % Normal 37.0-47.0 [facility] Comment on above: Performed By: #### C BCWD #### [facility] [address] [place] [address] Hemoglobin (Bld) [Mass/Vol] 14.2 g/dL Normal 12.0-16.0 [facility] Comment on above: Performed By: #### C BCWD #### [facility] [address] [place] [address] Lymphocytes (Bld) [#/Vol] 2.3 10*3/uL Normal 1.0-4.8 [facility] Comment on above: Performed By: #### C BCWD #### [facility] [address] [place] [address] Lymphocytes/100 WBC (Bld) 25.8 % Normal [facility] Comment on above: Performed By: #### C BCWD #### [facility] [address] [place] [address] MCH (RBC) [Entitic mass] 25.1 pg Low 27.0-31.3 [facility] Comment on above: Performed By: #### C BCWD #### [facility] [address] [place] [address] MCHC 32.0 % Low 33.0-37.0 [facility] Comment on above: Performed By: #### C BCWD #### [facility] [address] [place] [address] MCV (RBC) [Entitic vol] 78.5 fL Low 79.4-94.8 [facility] Comment on above: Performed By: #### C BCWD #### [facility] [address] [place] [address] Monocytes (Bld) [#/Vol] 0.8 10*3/uL Normal 0.2-0.8 [facility] Comment on above: Performed By: #### C BCWD #### [facility] [address] [place] [address] Monocytes/100 WBC (Bld) 9.4 % Normal [facility] Comment on above: Performed By: #### C BCWD #### [facility] [address] [place] [address] Neutrophils (Bld) [#/Vol] 5.6 10*3/uL Normal 1.4-6.5 [facility] Comment on above: Performed By: #### C BCWD #### [facility] [address] [place] [address] Neutrophils/100 WBC (Bld) 62.6 % Normal [facility] Comment on above: Performed By: #### C BCWD #### [facility] [address] [place] [address] Platelets (Bld) [#/Vol] 281 10*3/uL Normal 130-400 [facility] Comment on above: Performed By: #### C BCWD #### [facility] [address] [place] [address] RBC (Bld) [#/Vol] 5.66 10*6/uL Critically high 4.20-5.40 [facility] Comment on above: Performed By: #### C BCWD #### [facility] [address] [place] [address] WBC (Bld) [#/Vol] 8.9 10*3/uL Normal 4.8-10.8 [facility] Comment on above: Performed By: #### C BCWD #### [facility] [address] [place] [address] CBC with Auto Differentialon 06-24-2022 Basophils (Bld) [#/Vol] 0.1 10*3/uL 0.0 - 0.2 K/uL [facility] Basophils/100 WBC (Bld) 0.6 % B ON [facility] Eosinophils (Bld) [#/Vol] 0.1 10*3/uL 0.0 - 0.7 K/uL [facility] Eosinophils/100 WBC (Bld) 1.6 % [facility] Hematocrit (Bld) [Volume fraction] 44.4 % 37.0 - 47.0 % [facility] Hemoglobin (Bld) [Mass/Vol] 14.2 g/dL 12.0 - 16.0 g/dL [facility] Interpretation and review of laboratory results Abnormal [facility] Lymphocytes (Bld) [#/Vol] 2.3 10*3/uL 1.0 - 4.8 K/uL [facility] Lymphocytes/100 WBC (Bld) 25.8 % [facility] MCH (RBC) [Entitic mass] 25.1 pg Low 27. 0 - 31.3 pg [facility] MCHC (RBC) [Mass/Vol] 32.0 % Low 33.0 - 37.0 % [facility] MCV (RBC) [Entitic vol] 78.5 fL Low 79.4 - 94.8 fL [facility] Monocytes (Bld) [#/Vol] 0.8 10*3/uL 0.2 - 0.8 K/uL [facility] Monocytes/100 WBC (Bld) 9.4 % [facility] Neutrophils Absolute 5.6 K/uL 1.4 - 6 .5 K/uL [facility] Neutrophils/100 WBC (Bld) 62.6 % [facility] Platelet distribution width (Bld) [Ratio] 16.4 % High 11.5 - 14.5 % [facility] Platelets (Bld) [#/Vol] 281 10*3/uL 130 - 400 K/uL [facility] RBC (Bld) [#/Vol] 5.66 10*6/uL High [facility] WBC (Bld) [#/Vol] 8.9 10*3/uL 4.8 - 10.8 K/uL [facility] Comprehensive Metabolic Pane gretel 06-24-2022 Albumin [Mass/Vol] 4.2 g/dL Normal 3.5-4.6 [facility] Comment on above: Performed By: #### U MARIA ELENA #### [facility] [address] [place] [address] ALP [Catalytic activity/Vol] 89 U/L Normal 40-130 [facility] Comment on above: Performed By: #### U MARIA ELENA #### [facility] [address] [place] [address] ALT [Catalytic activity/Vol] 47 U/L Critically high 0-33 [facility] Comment on above: Performed By: #### U MARIA ELENA #### [facility] [address] [place] [address] Anion gap [Moles/Vol] 13 mmol/L Normal 9-15 [facility] Comment on above: Performed By: #### U MARIA ELENA #### [facility] [address] [place] [address] AST [Catalytic activity/Vol] 44 U/L Critically high 0-35 [facility] Comment on above: Performed By: #### U MARIA ELENA #### [facility] [address] [place] [address] Bilirubin [Mass/Vol] 0.5 mg/dL Normal 0.2-0.7 [facility] Comment on above: Performed By: #### U MARIA ELENA #### [facility] [address] [place] [address] Calcium [Mass/Vol] 9.2 mg/dL Normal 8.5-9.9 [facility] Comment on above: Performed By: #### U MARIA ELENA #### [facility] [address] [place] [address] Chloride [Moles/Vol] 100 mmol/L Normal 95-107 [facility] Comment on above: Performed By: #### U MARIA ELENA #### [facility] [address] [place] [address] CO2 [Moles/Vol] 26 mmol/L Normal 20-31 [facility] Comment on above: Performed By: #### U MARIA ELENA #### [facility] [address] [place] [address] Creatinine [Mass/Vol] 0.54 mg/dL Normal 0.50-0.90 [facility] Comment on above: Performed By: #### U MARIA ELENA #### [facility] [address] [place] [address] GFR >60.0 Normal >60 [facility] Comment on above: Result Comment: Myra [...] Performed By: #### U MARIA ELENA #### [facility] [address] [place] [address] Globulin (S) [Mass/Vol] 3.9 g/dL Critically high 2.3-3.5 [facility] Comment on above: Performed By: #### U MARIA ELENA #### [facility] [address] [place] [address] Glucose [Mass/Vol] 124 mg/dL Critically high 70-99 [facility] Comment on above: Performed By: #### U MARIA ELENA #### [facility] [facility] [address] [place] [address] Potassium [Moles/Vol] 4.4 mmol/L Normal 3.4-4.9 [facility] Comment on above: Performed By: #### U MARIA ELENA #### [facility] [address] [place] [address] Protein [Mass/Vol] 8.1 g/dL Critically high 6.3-8.0 [facility] Comment on above: Performed By: #### U MARIA ELENA #### [facility] [address] [place] [address] Sodium [Moles/Vol] 139 mmol/L Normal 135-144 [facility] Comment on above: Performed By: #### U MARIA ELENA #### [facility] [address] [place] [address] Urea nitrogen [Mass/Vol] 14 mg/dL Normal 6-20 [facility] Comment on above: Performed By: #### U MARIA ELENA #### [facility] [address] [place] [address] Albumin [Mass/Vol] 4.2 g/dL 3.5 - 4.6 g/dL [facility] ALP (Bld) [Catalytic activity/Vol] 89 U/L 40 - 130 U/L [facility] ALT [Catalytic activity/Vol] 47 U/L High 0 - 33 U/L [facility] Anion gap [Moles/Vol] 13 mmol/L [facility] AST [Catalytic activity/Vol] 44 U/L High 0 - 35 U/L [facility] Bilirubin [Mass/Vol] 0.5 mg/dL 0.2 - 0 .7 mg/dL [facility] Calcium [Mass/Vol] 9.2 mg/dL 8.5 - 9.9 mg/dL [facility] Chloride [Moles/Vol] 100 mmol/L [facility] CO2 [Moles/Vol] 26 mmol/L [facility] Creatinine [Mass/Vol] 0.54 mg/dL 0.50 - 0.90 mg/dL [facility] GFR/1.73 sq M.predicted MDRD (S/P/Bld) [Vol rate/Area] 60 - PINF [facility] Comment on above: Pediatric calculator link [...] 3.9 g/dL High 2.3 - 3.5 g/dL [facility] Glucose [Mass/Vol] 124 mg/dL High 70 - 99 mg/dL [facility] Interpretation and review of laboratory results Abnormal [facility] Potassium [Moles/Vol] 4.4 mmol/L [facility] Protein [Mass/Vol] 8.1 g/dL High 6.3 - 8.0 g/dL [facility] Sodium [Moles/Vol] 139 mmol/L [facility] Urea nitrogen (BldV) [Mass/Vol] 14 mg/dL 6 - 20 mg/dL [facility] Laboratory - Coagulationon 0 06-24-2022 INR Coag (Bld) [Relative time] 1.1 {INR} Normal [facility] Work Phone: Laboratory - Hematology and Cell countson 06-24-2022 Basophils/100 WBC (Bld) 0.6 % Normal [facility] Work Phone: Eosinophils/100 WBC (Bld) 1.6 % Normal [facility] Work Phone: Lymphocytes/100 WBC (Bld) 25.8 % Normal [facility] Work Phone: Monocytes/100 WBC (Bld) 9.4 % Normal [facility] Work Phone: Neutrophils/100 WBC (Bld) 62.6 % Normal [facility] Work Phone: MRSA, DNA, Nasalon Specimen Description Swab Normal [facility] Comment on above: Performed By: #### I MRSA #### [facility] [address] [place] [id number] [phone] Microscopic Urinalysison Bacteria, UA FEW Abnormal Negative /HPF [facility] Epithelial Cells, UA 0-2 [facility] Hyaline Casts, UA 0-1 [facility] RBC, UA 0-2 [facility] WBC, UA 3-5 [facility] No Panel Informationon 06-24 Interpretation and review of laboratory results Abnormal [facility] TRACE Abnormal Negative [facility] Work Phone: Negative Normal Negative [facility] Work Phone: 0.2 {E.U./dL} Normal < 2.0 [facility] Work Phone: 30 mg/dL Abnormal Negative [facility] Work Phone: 7.0 1 Normal 5.0-9.0 [facility] Work Phone: Not Indicated Normal [facility] Work Phone: 1.010 1 Normal 1.005-1.03 [facility] Work Phone: Clear Normal Clear [facility] Work Phone: Yellow Normal Straw/Rock [facility] Work Phone: 0-2 Normal 0-5 [facility] Work Phone: 3-5 Normal 0-5 [facility] Work Phone: 0-1 Normal 0-5 [facility] Work Phone: FEW Abnormal Negative [facility] Work Phone: [phone] K/uL Normal 130-400 [facility] Work Phone: [phone] 16.4 % above high threshold 11.5-14.5 [facility] Work Phone: [phone] 32.0 % below low threshold 33.0-37.0 [facility] Work Phone: [phone] 0.1 K/uL Normal 0.0-0.2 [facility] Work Phone: [phone] 0.8 K/uL Normal 0.2-0.8 [facility] Work Phone: [phone] 2.3 K/uL Normal 1.0-4.8 [facility] Work Phone: [phone] 5.6 K/uL Normal 1.4-6.5 [facility] Work Phone: [phone] 25.1 pg below low threshold 27.0-31.3 [facility] Work Phone: [phone] 78.5 fL below low threshold 79.4-94.8 [facility] Work Phone: [phone] 44.4 % Normal 37.0-47.0 [facility] Work Phone: [phone] 14.2 g/dL Normal 12.0-16.0 [facility] Work Phone: [phone] 5.66 {M/uL} above high threshold 4.20-5.40 [facility] Work Phone: [phone] 8.9 K/uL Normal 4.8-10.8 [facility] [...] [facility] Work Phone: >60.0 Normal >60 [facility] Work [facility]: Comment on above: Pediatric calculator [...] [facility] Work Phone: 14 mg/dL Normal 6-20 [facility] Work Phone: 124 mg/dL above high threshold 70-99 [facility] Work Phone: 13 {mEq/L} Normal 9-15 [facility] Work Phone: 26 {mEq/L} Normal 20-31 [facility] Work Phone: 100 {mEq/L} Normal 95-107 [facility] Work Phone: 4.4 {mEq/L} Normal 3.4-4.9 [facility] Work Phone: 139 {mEq/L} Normal 135-144 [facility] Work Phone: Negative Normal NEG [facility] Work Phone: Comment on above: NEGATIVE: MRSA DNA n ot detected by nucleic acid amplification. Results should be used as an adjunct to nosocomial control efforts toidentify patients needing enhanced precautions.The test is not intended to identify patients with staphylococcalinfections. Results should not be used to guide or monitor treatmentfor MRSA infections.[employer] [facility] [place] [address] Swab Normal [facility] Work Phone: Partial Thromboplastin Timeo n 06-24-2022 aPTT Coag (Bld) [Time] 30.1 s Normal 24.4-36.8 [facility] Comment on above: Result Comment: Effe ctive 02/27/2020: Heparin Therapeutic Range: 64.0 ? 98.0 seconds. Performed By: #### U MARIA ELENA #### [facility] [address] [place] [address] Prothrombin Timeon 3 INR Coag (PPP) [Relative time] 1.1 {INR} Normal [facility] Comment on above: Performed By: #### P T #### [facility] [address] [place] [address] PT Coag (PPP) [Time] 14.8 s Normal 12.3-14.9 [facility] Comment on above: Performed By: #### P T #### [facility] [address] [place] [address] Protime-INRon 06-24-2022 INR Coag (Bld) [Relative time] 1.1 {INR} [facility] PT Coag (PPP) [Time] 14.8 s [facility] TYPE AND SCREENon 06-24-2022 ABO/Rh Negative [facility] Comment on above: @06/24/22 14:01 by Elaina FISCHER: BACK TYPE CONFIRMED IN TUBE. LMB Confirmation type ne eds to be drawn. [facility] Type and 3 cell Screen OB Ca ptureon 06-24-2022 Type and 3 cell Screen OB Capture PATIENT: PINKY Prince LOC: GIFTYBILL# : [id number] : 1970 SEX: F ORDERED BY: GILMAR COX ORDERED : 06/24/2022 11:08 COLLECTED: 06/24/2022 11:45 ORDER : [id number] RECEIVED : 06/24/2022 11:45 Confirmation type needs to be drawn. --- TEST NAME RESULT UNITS RANGES ABN FL ST ABORH Capture A NEG F @06/24/22 14:01 by RUDY: BACK TYPE CONFIRMED IN TUBE. LMB Antibody 3 Cell Scrn Captu NEG F -- Normal [facility] Comment on above: Performed By: #### T SO3C #### [facility] [address] [place] [address] Urinalysis with Reflex to Cu ltureon 06-24-2022 Bilirubin Urine Negative Negative [facility] GMI Blood, Urine Negative Negative [facility] Clarity, UA Clear Clear [facility] Color, UA Yellow Straw/Rock ow [facility] Glucose, Ur Negative Negative mg/dL [facility] Ketones Ql (U) Negative Negative mg/dL [facility] Leukocyte esterase Test strip Ql (U) TRACE Abnormal Negative [facility] Nitrite, Urine Negative Negative [facility] GMI pH, UA 7.0 5.0 - 9.0 [facility] Protein (U) [Mass/Vol] 30 mg/dL Abnormal Negative [facility] GMI Specific [place], UA 1.010 1.005 - 1.030 [facility] Urine Reflex to Culture Not Indicated [facility] GMI Urobilinogen, Urine 0.2 NINF [facility] Urinalysis, reflex to cultur gurinder 06-24-2022 Urine Reflexed to Culture Not Indicated Normal [facility] Comment on above: Performed By: #### U AR #### [facility] [address] [place] [address] Bilirubin Ql (U) Negative Normal Negative [facility] Comment on above: Performed By: #### U AR #### [facility] [address] [place] [address] Clarity (U) Clear Normal Clear [facility] Comment on above: Performed By: #### U AR #### [facility] [address] [place] [address] Color (U) Yellow Normal Straw/Rock [facility] Comment on above: Performed By: #### U AR #### [facility] [address] [place] [address] Glucose Ql (U) Negative Normal Negative [facility] Comment on above: Performed By: #### U AR #### [facility] [address] [place] [address] Hemoglobin Ql (U) Negative Normal Negative [facility] Comment on above: Performed By: #### U AR #### [facility] [address] [place] [address] Ketones Ql (U) Negative Normal Negative [facility] Comment on above: Performed By: #### U AR #### [facility] [address] [place] [address] Leukocyte esterase Test strip Ql (U) TRACE Abnormal Negative [facility] Comment on above: Performed By: #### U AR #### [facility] [address] [place] [address] Nitrite Ql (U) Negative Normal Negative [facility] Comment on above: Performed By: #### U AR #### [facility] [address] [place] [address] pH (U) 7.0 [pH] Normal 5.0-9.0 [facility] Comment on above: Performed By: #### U AR #### [facility] [address] [place] [address] Protein Ql (U) 30 mg/dL Abnormal Negative [facility] Comment on above: Performed By: #### U AR #### [facility] [address] [place] [address] Specific gravity (U) [Rel density] 1.010 Normal 1.005-1.03 [facility] Comment on above: Performed By: #### U AR #### [facility] [address] [place] [address] Urobilinogen Qn (U) 0.2 {Reji'U}/dL Normal < 2.0 [facility] Comment on above: Performed By: #### U AR #### [facility] [address] [place] [address] Urine Microscopicon 06-25-19 23 Urine Bacteria FEW Abnormal Negative [facility] Comment on above: Performed By: #### U MARIA ELENA #### [facility] [address] [place] [address] Urine Epithelial Cells Auto 0-2 Normal 0-5 [facility] Comment on above: Performed By: #### U MARIA ELENA #### [facility] [address] [place] [address] Urine Hyaline Casts Auto 0-1 Normal 0-5 [facility] Comment on above: Performed By: #### U MARIA ELENA #### [facility] [address] [place] [address] Urine RBC Auto 0-2 Normal 0-5 [facility] Comment on above: Performed By: #### U MARIA ELENA #### [facility] [address] [place] [address] Urine WBC Auto 3-5 Normal 0-5 [facility] Comment on above: Performed By: #### U MARIA ELENA #### [facility] [address] [place] [address] BILATERAL KNEE COMPLT, 4 OR MORE VIEWSon 05-18-2022 BILATERAL KNEE COMPLT, 4 OR MORE VIEWS Patient Name: GEETA SHELTON STUDY: BILATERAL KNEE; COMPLT, 4 OR MORE VIEWS; ; 05/18/2022 9:07 am INDICATION: pain M25.561: Acute pain of both knees M25.562:. ACCESSION NUMBER(S): [id number] ORDERING CLINICIAN: ACOSTA SCHAFER FINDINGS: Weightbearing four [...] Electronically signed by: ACOSTA SCHAFER MD Normal [facility] Initial Visit (Orthopaedic S urgery)on 05-18-2022 Initial [...] on 05-07-2022 Albumin [Mass/Vol] 3.9 g/dL 3.2-5.5 [facility] Alkaline phosphatase [Enzyma tic activity/volume] in Serum or PlasmaOrdered By: Elizabeth Alvarado on 05-07-2022 ALP [Catalytic activity/Vol] 83 U/L 32-92 [facility] Aspartate aminotransferase [ Enzymatic activity/volume] in Serum or PlasmaOrdered By: Elizabeth Alvarado on 05-07-2022 AST [Catalytic activity/Vol] 56 U/L 10-42 [facility] Basophils Auto (Bld) [#/Vol] Ordered By: Elizabeth Alvarado on 05-07-2022 Basophils (Bld) [#/Vol] 0.1 10*3/uL 0.0-0.2 [facility] Basophils/100 WBC Auto (Bld) Ordered By: Elizabeth Alvarado on 05-07-2022 Basophils/100 WBC (Bld) 0.7 % . [facility] Bilirubin.total [Mass/volume ] in Serum or PlasmaOrdered By: Elizabeth Alvarado on 05-07-2022 Bilirubin [Mass/Vol] 0.6 mg/dL 0.3-1.2 [facility] Calcium [Mass/volume] in Ser um or PlasmaOrdered By: Elizabeth Alvarado on 05-07-2022 Calcium [Mass/Vol] 9.1 mg/dL 8.2-10.2 [facility] Carbon dioxide, total [Moles /volume] in Serum or PlasmaOrdered By: Elizabeth Alvarado on 05-07-2022 CO2 [Moles/Vol] 28.1 mmol/L 22.0-30.0 [facility] Chloride [Moles/volume] in S hugo or PlasmaOrdered By: Elizabeth Alvarado on 01-13-2023 Chloride [Moles/Vol] 100 mmol/L 95-114 [facility] Cholesterol [Mass/volume] in Serum or PlasmaOrdered By: Elizabeth Alvarado on 05-07-2022 Cholesterol [Mass/Vol] 181 mg/dL 140-200 [facility] Comment on above: Chol less than 200 m g/dl low riskChol 201-239 mg/dl borderline riskChol 240 mg/dl and greater high risk Cholesterol in LDL Calc [Mas s/Vol]Ordered By: Elizabeth Alvarado on 05-07-2022 Cholesterol in LDL [Mass/Vol] 102 mg/dL 0-100 [facility] Comment on above: LDL ATP III CLASSIFI CATIONLDL less than 100 mg/dL OptimalLDL 100-129 mg/dL Near or above optimalLDL 130-159 mg/dL Borderline highLDL 160-189 mg/dL HighLDL greater than 189 mg/dL Very high Cholesterol in VLDL Calc [Ma ss/Vol]Ordered By: Elizabeth Alvarado on 05-07-2022 Cholesterol in VLDL [Mass/Vol] 20 mg/dL [facility] Creatinine and Glomerular fi ltration rate.predicted panel (S/P/Bld)Ordered By: Elizabeth Alvarado on 05-07-2022 Creatinine [Mass/Vol] 0.65 mg/dL 0.44-1.03 [facility] Eosinophils Auto (Bld) [#/Vo l]Ordered By: Elizabeth Alvarado on 05-07-2022 Eosinophils (Bld) [#/Vol] 0.1 10*3/uL 0.0-0.45 [facility] Eosinophils/100 WBC Auto (Bl d)Ordered By: Elizabeth Alvarado on 05-07-2022 Eosinophils/100 WBC (Bld) 1.8 % . [facility] Erythrocyte distribution wid th Auto (RBC) [Ratio]Ordered By: Elizabeth Alvarado on 05-07-2022 Erythrocyte distribution width (RBC) [Ratio] 17.8 % 11.9-15.3 [facility] Estimated glomerular filtrat ion rate (GFR) non- AmericanOrdered By: Elizabeth Alvarado on 05-07-2022 GFR/1.73 sq M.predicted among non-blacks MDRD (S/P/Bld) [Vol rate/Area] > 60 mL/Min [facility] Globulin Calc (S) [Mass/Vol] Ordered By: Elizabeth Alvarado on 05-07-2022 Globulin (S) [Mass/Vol] 3.7 g/dL [facility] Glucose [Mass/volume] in Ser um or PlasmaOrdered By: Elizabeth Alvarado on 05-07-2022 Glucose [Mass/Vol] 137 mg/dL 70-100 [facility] Comment on above: ADA recommended refe rence rangeRandom Glucose Reference Range is dependent on time and content of last meal. Glucose of more than 200 mg/dL in a nonstressed, ambulatory subject supports the diagnosis of Diabetes Mellitus. Hematocrit Auto (Bld) [Volum e fraction]Ordered By: Elizabeth Alvarado on 05-07-2022 Hematocrit (Bld) [Volume fraction] 45.4 % 34.0-46.4 [facility] Hemoglobin [Mass/volume] in BloodOrdered By: Elizabeth Alvarado on 05-07-2022 Hemoglobin (Bld) [Mass/Vol] 14.1 g/dL 11.8-15.4 [facility] Leukocytes [#/volume] correc silverio for nucleated erythrocytes in Blood by Automated counOrdered By: Elizabeth Alvarado on 05-07-2022 WBC corrected for nucl RBC Auto (Bld) [#/Vol] 7.9 10*3/uL 3.8-11.6 [facility] Lymphocytes Auto (Bld) [#/Vo l]Ordered By: Elizabeth Alvarado on 05-07-2022 Lymphocytes (Bld) [#/Vol] 2.4 10*3/uL 1.00-4.8 [facility] Lymphocytes/100 WBC Auto (Bl d)Ordered By: Elizabeth Alvarado on 05-07-2022 Lymphocytes/100 WBC (Bld) 30.9 % . [facility] MCH Auto (RBC) [Entitic mass ]Ordered By: Elizabeth Alvarado on 05-07-2022 MCH (RBC) [Entitic mass] 24.6 pg 24.7-34.3 [facility] MCHC Auto (RBC) [Mass/Vol]Or dered By: Elizabeth Alvarado on 05-07-2022 MCHC (RBC) [Mass/Vol] 31.0 g/dL 32.0-35.0 [facility] MCV Auto (RBC) [Entitic vol] Ordered By: Elizabeth Alvarado on 05-07-2022 MCV (RBC) [Entitic vol] 79.4 fL 80-100 [facility] Monocytes Auto (Bld) [#/Vol] Ordered By: Elizabeth Alvarado on 05-07-2022 Monocytes (Bld) [#/Vol] 0.7 10*3/uL 0.0-0.8 [facility] Monocytes/100 WBC Auto (Bld) Ordered By: Elizabeth Alvarado on 05-07-2022 Monocytes/100 WBC (Bld) 9.3 % . [facility] Neutrophils Auto (Bld) [#/Vo l]Ordered By: Elizabeth Alvarado on 05-07-2022 Neutrophils (Bld) [#/Vol] 4.5 10*3/uL 1.8-7.7 [facility] Neutrophils/100 WBC Auto (Bl d)Ordered By: Elizabeth Alvarado on 05-07-2022 Neutrophils/100 WBC (Bld) 57.3 % . [facility] No Panel InformationOrdered By: Elizabeth Alvarado on 05-07-2022 Estimated GFR () > 60 mL/Min [facility] Comment on above: GFR estimated refere nce range: According to KDOQI guidelines, <60 ml/min/1.73m2 is sufficient to diagnose a patient with chronic kidney disease. Pharmacy Creatinine Clearance (Chem N/A [facility] Nucleated erythrocytes [Pres ence] in Blood by Automated countOrdered By: Elizabeth Alvarado on 05-07-2022 Nucleated RBC Auto Ql (Bld) 0.1 /100{WBC} 0-0.5 [facility] Platelet mean volume Auto (B ld) [Entitic vol]Ordered By: Elizabeth Alvarado on 05-07-2022 Platelet mean volume (Bld) [Entitic vol] 9.4 fL 6.3-10.7 [facility] Platelets Auto (Bld) [#/Vol] Ordered By: Elizabeth Alvarado on 05-07-2022 Platelets (Bld) [#/Vol] 242 10*3/uL 150-450 [facility] Potassium [Moles/volume] in Serum or PlasmaOrdered By: Elizabeth Alvarado on 05-07-2022 Potassium [Moles/Vol] 4.3 mmol/L 3.5-5.1 [facility] Protein [Mass/volume] in Ser um or PlasmaOrdered By: Elizabeth Alvarado on 05-07-2022 Protein [Mass/Vol] 7.6 g/dL 6.1-7.9 [facility] RBC Auto (Bld) [#/Vol]Ordere d By: Elizabeth Alvarado on 05-07-2022 RBC (Bld) [#/Vol] 5.72 10*6/uL 3.60-5.00 [facility] Serum or plasma alanine ulloa otransferase measurement without P-5'-P (enzymatic activiOrdered By: Elizabeth Alvarado on 05-07-2022 ALT No additional P-5'-P [Catalytic activity/Vol] 61 U/L 10-60 [facility] Serum or plasma albumin/glob ulin mass ratioOrdered By: Elizabeth Alvarado on 05-07-2022 Albumin/Globulin [Mass ratio] 1.1 {ratio} [facility] Serum or plasma anion gap de terminationOrdered By: Elizabeth Alvarado on 05-07-2022 Anion gap [Moles/Vol] 11.2 mmol/L 6.0-15.0 [facility] Serum or plasma high density lipoprotein (HDL) cholesterol measurementOrdered By: Elizabeth Alvarado on 05-07-2022 Cholesterol in HDL [Mass/Vol] 58 mg/dL 35-85 [facility] Comment on above: HDL CHOL ATP-III CLA SSIFICATION Cardiovascular RiskHDL > or equal to 60 mg/dL LOWHDL < 40 mg/dL HIGH Serum or plasma total choles terol/high density lipoprotein (HDL) cholesterol mass ratOrdered By: Elizabeth Alvarado on 05-07-2022 Cholesterol.total/Choles terol in HDL [Mass ratio] 3.1 {ratio} <5.0 [facility] Sodium [Moles/volume] in Ser um or PlasmaOrdered By: Elizabeth Alvarado on 05-07-2022 Sodium [Moles/Vol] 135 mmol/L 136-146 [facility] TSH DL <= 0.005 mIU/L QnOrde red By: Elizabeth Alvarado on 05-07-2022 TSH Qn 4.21 m[IU]/L 0.45-5.33 [facility] Triglyceride [Mass/volume] i n Serum or PlasmaOrdered By: Elizabeth Alvarado on 05-07-2022 Triglyceride [Mass/Vol] 103 mg/dL 35-149 [facility] Comment on above: TRIG ATP III CLASSIF ICATIONTRIG less than 150 mg/dL NormalTRIG 150-199 mg/dL Borderline highTRIG 200-500 mg/dL High TRIG greater than 500 mg/dL Very highStandard traceable to the Center for Disease Conrtrol and Prevention (CDC) test method. Urea nitrogen [Mass/volume] in Serum or PlasmaOrdered By: Elizabeth Alvarado on 05-07-2022 Urea nitrogen [Mass/Vol] 14 mg/dL 9-23 [facility] WBC Auto (Bld) [#/Vol]Ordere d By: Elizabeth Alvarado on 05-07-2022 WBC (Bld) [#/Vol] 7.9 10*3/uL 3.8-11.6 [facility] Basophils Auto (Bld) [#/Vol] Ordered By: Tyler Villeda on 04-13-2022 Basophils (Bld) [#/Vol] 0.1 10*3/uL 0.0-0.2 [facility] Basophils/100 WBC Auto (Bld) Ordered By: Tyler Villeda on 04-13-2022 Basophils/100 WBC (Bld) 0.6 % . [facility] C reactive protein [Mass/vol ume] in Serum or PlasmaOrdered By: Tyler Villeda on 04-13-2022 CRP [Mass/Vol] 2.1 mg/dL 0.0-1.0 [facility] Eosinophils Auto (Bld) [#/Vo l]Ordered By: Tyler Villeda on 04-13-2022 Eosinophils (Bld) [#/Vol] 0.2 10*3/uL 0.0-0.45 [facility] Eosinophils/100 WBC Auto (Bl d)Ordered By: Tyler Villeda on 04-13-2022 Eosinophils/100 WBC (Bld) 2.0 % . [facility] Erythrocyte distribution wid th Auto (RBC) [Ratio]Ordered By: Tyler Villeda on 04-13-2022 Erythrocyte distribution width (RBC) [Ratio] 17.6 % 11.9-15.3 [facility] Erythrocyte sedimentation ra te by Photometric methodOrdered By: Tyler Villeda on 04-13-2022 ESR Photometric method (d) [Velocity] 54 mm/hr 0-29 [facility] Hematocrit Auto (Bld) [Volum e fraction]Ordered By: Tyler Villeda on 04-13-2022 Hematocrit (Bld) [Volume fraction] 44.4 % 34.0-46.4 [facility] Hemoglobin [Mass/volume] in BloodOrdered By: Tyler Villeda on 04-13-2022 Hemoglobin (Bld) [Mass/Vol] 14.3 g/dL 11.8-15.4 [facility] Leukocytes [#/volume] correc silverio for nucleated erythrocytes in Blood by Automated counOrdered By: Tyler Villeda on 04-13-2022 WBC corrected for nucl RBC Auto (Bld) [#/Vol] 8.6 10*3/uL 3.8-11.6 [facility] Lymphocytes Auto (Bld) [#/Vo l]Ordered By: Tyler Villeda on 04-13-2022 Lymphocytes (Bld) [#/Vol] 2.9 10*3/uL 1.00-4.8 [facility] Lymphocytes/100 WBC Auto (Bl d)Ordered By: Tyler Villeda on 04-13-2022 Lymphocytes/100 WBC (Bld) 33.6 % . [facility] MCH Auto (RBC) [Entitic mass ]Ordered By: Tyler Villeda on 04-13-2022 MCH (RBC) [Entitic mass] 24.9 pg 24.7-34.3 [facility] MCHC Auto (RBC) [Mass/Vol]Or dered By: Tyler Villeda on 04-13-2022 MCHC (RBC) [Mass/Vol] 32.2 g/dL 32.0-35.0 [facility] MCV Auto (RBC) [Entitic vol] Ordered By: Tyler Villeda on 04-13-2022 MCV (RBC) [Entitic vol] 77.4 fL 80-100 F [facility] Monocytes Auto (Bld) [#/Vol] Ordered By: Tyler Villeda on 04-13-2022 Monocytes (Bld) [#/Vol] 0.9 10*3/uL 0.0-0.8 [facility] Monocytes/100 WBC Auto (Bld) Ordered By: Tyler Villeda on 04-13-2022 Monocytes/100 WBC (Bld) 10.0 % . F [facility] Neutrophils Auto (Bld) [#/Vo l]Ordered By: Tyler Villeda on 04-13-2022 Neutrophils (Bld) [#/Vol] 4.6 10*3/uL 1.8-7.7 [facility] Neutrophils/100 WBC Auto (Bl d)Ordered By: Tyler Villeda on 04-13-2022 Neutrophils/100 WBC (Bld) 53.8 % . [facility] Nucleated erythrocytes [Pres ence] in Blood by Automated countOrdered By: Tyler Villeda on 04-13-2022 Nucleated RBC Auto Ql (Bld) 0.1 /100{WBC} 0-0.5 [facility] Platelet mean volume Auto (B ld) [Entitic vol]Ordered By: Tyler Villeda on 04-13-2022 Platelet mean volume (Bld) [Entitic vol] 9.1 fL 6.3-10.7 [facility] Platelets Auto (Bld) [#/Vol] Ordered By: Tyler Villeda on 04-13-2022 Platelets (Bld) [#/Vol] 296 10*3/uL 150-450 [facility] RBC Auto (Bld) [#/Vol]Ordere d By: Tyler Villeda on 04-13-2022 RBC (Bld) [#/Vol] 5.73 10*6/uL 3.60-5.00 [facility] WBC Auto (Bld) [#/Vol]Ordere d By: Tyler Villeda on 04-13-2022 WBC (Bld) [#/Vol] 8.6 10*3/uL 3.8-11.6 [facility] Serum or plasma follitropin measurement (units/volume)Ordered By: Elizabeth Alvarado on 12-03-2021 Follitropin Qn 18.3 m[IU]/mL [facility] Comment on above: FEMALE NORMALS (JUDIE ENOPAUSE) MID-FOLLICULAR PHASE: 3.9-8.8 mIU/mL MID-CYCLE PEAK: 4.5-22.5 mIU/mL MID-LUTEAL PHASE: 1.8-5.1 mIU/mL FEMALE NORMALS (POSTMENOPAUSE): 16.7-113.6 mIU/mL MALE NORMALS: 1.3-19.3 mIU/mL TSH DL <= 0.005 mIU/L QnOrde red By: Elizabeth Alvarado on 12-03-2021 TSH Qn 4.23 m[IU]/L 0.45-5.33 [facility] Total estrogen measurementOr dered By: Elizabeth Alvarado on 12-03-2021 Estrogen [Mass/Vol] 83 pg/mL . [facility] Comment on above: Prepubertal < 40 Female Cycle: 1-10 Days 16 - 328 11-20 Days 34 - 501 21-30 Days 48 - 350 Post-Menopausal 40 - 244 Performed at: - [facility] [id number] Compotype Operator: Virgie Isaac MD, Phone: [phone] Coding Summary.on 01-26-2019 Coding Summary. CODING DATE: 019 FINAL [facility] STATUS: Home (Routine DC) PAYOR: Medicare APC DESCRIPTION 5113 Level 3 Musculoskeletal Procedures ADMIT DX: REASON FOR VISIT DX: M76.61 Achilles tendinitis, right leg FINAL DX: PRINCIPAL: M76.61 Achilles tendinitis, right leg SECONDARY: M24.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, right ankle I10 Essential (primary) hypertension J45.909 Unspecified asthma, uncomplicated K21.9 Gastro-esophageal reflux disease without esophagitis Z79.899 Other snf (current) drug therapy PYMT PROC APC STAT DESCRIPTION DOCTOR NAME DATE 5112 J1 Tenotomy, percutaneous, Thuan Travis DPM 01/24/2019 Achilles tendon (separate procedure); general anesthesia RT Right side (used to identify procedures performed on the right side of the body) 41359 Anesthesia for Shahab Almanzar Jr., DO 01/24/2019 [...] Revised Date Saved: 01/26/2019 11:32 am Normal [facility] Inpatient Patient Summaryon 01-24-2019 Inpatient Patient Summary [facility] Clinical Discharge Instructions PERSON INFORMATION Name: GEETA SHELTON PHYSICIANS Admitting Physician: Thuan Travis DPM Attending Physician: Thuan Travis DPM PCP: Nichole Caballero Discharge Diagnosis: Comment: PATIENT EDUCATION INFORMATION Instructions: Post Op Patient Instructions - FT (Custom); Foot Cryocuff Patient Instructions - FT (Custom); Thaddeus - Post Operative Instructions (Revised 12/20/13) (Custom) ([id number]) Medication Leaflets: Follow up: MEDICATION LIST Comment: Normal [facility] Lyteson 01-24-2019 Anion gap [Moles/Vol] 14 mmol/L Normal 6-16 [facility] Comment on above: Performed By: #### 2 954941, 8538619, 9059242, 78216444, 1145276, 1910127 #### [facility] Laboratory [address] [place] [address] Chloride [Moles/Vol] 107 mmol/L Normal 101-111 [facility] Comment on above: Performed By: #### 2 156550, 9329382, 9752113, 14555081, 0785675, 1903727 #### [facility] Laboratory [address] [place] [address] CO2 [Moles/Vol] 23 mmol/L Normal 21-31 [facility] Comment on above: Performed By: #### 2 573478, 6122009, 0090595, 66570869, 4955004, 1306855 #### [facility] [address] [place] [address] Potassium [Moles/Vol] 4.9 mmol/L Normal 3.5-5.3 [facility] Comment on above: Performed By: #### 2 941835, 9268232, 0881258, 92389259, 3040074, 5750194 #### [facility] [address] [place] [address] Sodium [Moles/Vol] 139 mmol/L Normal 135-145 [facility] Comment on above: Performed By: #### 2 518176, 5494597, 0655990, 23276411, 3834565, 7343979 #### [facility] [address] [place] [address] Main OR Intraoperative Recor don 01-24-2019 Main OR Intraoperative Record IntraOp Document Type FT Summary Primary Physician: Thuan Travis DPM Finalized Date/Time: 01/24/19 11:33:24 Pt. Name: GEETA SHELTON/Sex: 1970 Female Med Rec #: [id number] Physician: Thuan Travis DPM Financial #: [id number] Pt. Type: A Room/Bed: Admit/Disch: 01/24/19 07:58:48 [...] Cheryl Role Performed Anesthesiologist Surgeon - Primary BOOKMAKER'S CLERK Laundry Operator Time In 01/24/19 08:48:00 01/24/19 09:00:00 [...] Zuly Duarte CST, Prashant Panda Role Performed Orthopaedic Surgeon - Primary Orthopaedic Surgeon - Other Scrub - Primary Time In [...] Coy RN, Alpa Sheikh RN, Gerald Veliz CENTER REP, Prashant M Time Out Complete 01/24/19 08:59:00 [...] AGUILAR, CNOR, Alpa AGUILAR, Zuly Luna, Gerald CENTER REP, R, Gerald QUIROZ, Prashant Panda Outcomes Met? [...] to transfer/transport General Comments: REPORT GIVEN TO [employer] MANAG[employer]N. Cy PRIDE RN Dressing/Packing FT Pre-Care [...] during the perioperative period For [facility] please see scanned medication reconcilliation form for medications used at the field during the procedure. Temperature Control Entry 1 Temperature Control BLANKET MISTRAL AIR Quantity 1 Aid TORSO [[id number]][F] Fluid/[place] Unit Mistral warming system Setting HIGH/43 Body Site Upper anterior torso Last Modified By: Kallie Gunter RN 01/24/19 08:46:43 Case Comments Finalized By: Maye Silverio CST Document Signatures Signed By: Kallie Gunter RN 01/24/19 09:26 Maye Silverio CST 01/24/19 11:33 Normal [facility] Main OR PACU I Recordon Main OR PACU I Record PACU Phase I Docum ent Type FT Summary Primary Physician: Thuan Travis DPM Finalized Date/Time: 01/24/19 10:08:45 Pt. Name: GEETA SHELTON/Sex: 1970 Female Med Rec #: [id number] Physician: Thuan Travis DPM Financial #: [id number] Pt. Type: A Room/Bed: Admit/Disch: 01/24/19 07:58:48 [...] By: Swathi Carr RN 01/24/19 10:08 Normal [facility] Main OR PACU II Recordon Main OR PACU II Record PACU Phase II Doc ument Type FT Summary Primary Physician: Thuan Travis DPM Finalized Date/Time: 01/24/19 13:09:21 Pt. Name: ROCIO SHELTONCHRISTINA Zaman/Sex: 1970 Female Med Rec #: [id number] Physician: Thuan Travis DPM Financial #: [id number] Pt. Type: A Room/Bed: [facility] Admit/Disch: 01/24/19 07:58:48 - Institution: Case [...] By: Keeley Putnam LPN 01/24/19 13:09 Normal [facility] Main OR Preoperative Recordo n 01-24-2019 Main OR Preoperative Record PreOp Document Type FT Summary Primary Physician: Thuan Travis DPM Finalized Date/Time: 01/24/19 09:12:07 Pt. Name: GEETA SHELTON/Sex: 1970 Female Med Rec #: [id number] Physician: Thuan Travis DPM Financial #: [id number] Pt. Type: A Room/Bed: [facility] Admit/Disch: 01/24/19 07:58:48 - Institution: [...] By: Kallie Gunter RN 01/24/19 09:12 Normal [facility] Operative Reporton 10--201 9 Operative Report [...] visit. Thuan Travis D.P.M. aek Dictated: 01/24/2019 #[id number] Typed: 01/24/2019 #[id number] cc: Thuan Travis D.P.M. [facility] Comment on above: Result Comment: Elec tronically Signed By: Thuan Travis DPM\.br\Date and Time Signed: 01/24/19 10:24 EDT Patient Education - Texton 1 Patient Education - Text (Inserted Image . Unable to display) [place], [place] Thuan Travis DPM, FACFAS POST OPERATIVE [...] feel free to call the doctor at: [phone] or [phone] Travis paged. ___ Patient signature Date ___ Dr. Anand Sauer DPM, FACFAS Date Revised: 06-02 [facility] Progress Note-Physicianon Progress Note-Physician Patient: GEETA [...] 1 ml. Complications: None. Anesthesia type: General. [facility] Comment on above: Result Comment: Elec tronically Signed By: Thuan Travis DPM\.br\Date and Time Signed: 01/24/19 09:27 EDT Coding Summary.on 01-12-2019 Coding Summary. CODING DATE: 019 FINAL [facility] STATUS: Home (Routine DC) PAYOR: [...] CphT Date Saved: 01/12/2019 11:10 am Normal [facility] BUNon 01-11-2019 Urea nitrogen [Mass/Vol] 29 mg/dL High 5-21 [facility] Comment on above: Performed By: #### 2 588187, 7397218, 4693140, 22739334, 6601971, 6261382 #### [facility] Laboratory [address] [place] [address] CBC w/Indiceson 01-11-2019 Erythrocyte distribution width (RBC) [Ratio] 16.1 % High 10.9-14.2 [facility] Comment on above: Performed By: #### 1 3227337, 1073453, 0585273, 1218894, 5916975 #### [facility] [address] [place] [address] Hematocrit (Bld) [Volume fraction] 42.1 % Normal 34.0-46.0 [facility] Comment on above: Performed By: #### 1 4943463, 3444142, 0838458, 6173397, 9499135 #### [facility] [address] [place] [address] Hemoglobin (Bld) [Mass/Vol] 13.8 g/dL Normal 12.0-16.0 [facility] Comment on above: Performed By: #### 1 6196992, 4561065, 3828849, 9126033, 7302758 #### [facility] [address] [place] [address] MCH (RBC) [Entitic mass] 25.8 pg Low 27.0-34.0 [facility] Comment on above: Performed By: #### 1 4549088, 6912143, 0299525, 5514727, 8491363 #### [facility] [address] [place] [address] MCHC (RBC) [Mass/Vol] 32.8 g/dL Low 33.3-35.7 [facility] Comment on above: Performed By: #### 1 4023728, 9720073, 0723189, 7717835, 7180769 #### [facility] [address] [place] [address] MCV (RBC) [Entitic vol] 78.5 fL Low 80.0-100.0 [facility] Comment on above: Performed By: #### 1 0677919, 4746194, 4817588, 6412115, 4575693 #### [facility] [address] [place] [address] Platelet mean volume (Bld) [Entitic vol] 9.9 fL Normal 6.4-10.8 [facility] Comment on above: Performed By: #### 1 8777244, 4187642, 4039717, 1346395, 4820679 #### [facility] [address] [place] [address] Platelets (Bld) [#/Vol] 283.0 E9/L Normal 150. 0-500. 0 [facility] Comment on above: Performed By: #### 1 5697064, 4029775, 5282983, 7577698, 4185048 #### [facility] [address] [place] [address] RBC (Bld) [#/Vol] 5.4 E12/L Normal 4.3-5.9 [facility] Comment on above: Performed By: #### 1 6673364, 3441222, 5178138, 8724880, 3263163 #### [facility] [address] [place] [address] WBC corrected for nucl RBC Auto (Bld) [#/Vol] 8.6 E9/L Normal 4.0-11.0 [facility] Comment on above: Performed By: #### 1 2095974, 3461083, 1143528, 3502830, 2562334 #### [facility] [address] [place] [address] Creatinineon 01-11-2019 Creatinine [Mass/Vol] 1.0 mg/dL Normal 0.5-1.3 [facility] Comment on above: Performed By: #### 2 119666, 6173060, 8108596, 08506535, 0183232, 5413712 #### [facility] [address] [place] [address] Glucoseon 01-11-2019 Glucose [Mass/Vol] 95 mg/dL Normal 55-199 [facility] Comment on above: Performed By: #### 1 8917559, 5388335, 1746075, 1802696, 9149234 #### [facility] [address] [place] [address] eGFRon 01-11-2019 GFR/1.73 sq M predicted among blacks MDRD (S/P/Bld) [Vol rate/Area] mL/min/{1.73_m2} Normal >=59 [facility] Comment on above: Order Comment: Order added by Discern Expert. Result Comment: eGFR is race adjusted. AA=. Performed By: #### 2 384689, 4708872, 3494006, 02487135, 9910614, 7537389 #### [facility] [address] [place] [address] GFR/1.73 sq M predicted among non-blacks MDRD (S/P/Bld) [Vol rate/Area] 59 mL/min/1.73 m2 Normal >=59 [facility] Comment on above: Order Comment: Order added by Discern Expert. Result Comment: [employer] stefanie kidney disease could be indicated at eGFR's of less than 60 mL/min/1.73m2. Kidney failure is indicated at less than 15 mL/min/1.73m2. Performed By: #### 2 415768, 1134824, 5850351, 37888023, 6133539, 4576372 #### [facility] [address] [place] [address] Coding Summary.on 12-15-2018 Coding Summary. CODING DATE: 019 FINAL [facility] STATUS: Home (Routine DC) PAYOR: [...] CphT Date Saved: 12/15/2018 01:36 pm Normal [facility] BUNon 12-14-2018 Urea nitrogen [Mass/Vol] 19 mg/dL Normal 5-21 [facility] Comment on above: Performed By: #### 2 324133, 4879967, 1561813, 17998521, 9932559, 3414497 #### [facility] [address] [place] [address] CBC w/Indiceson 12-14-2018 Erythrocyte distribution width (RBC) [Ratio] 17.1 % High 10.9-14.2 [facility] Comment on above: Performed By: #### 2 187473, 9506595, 3297904, 77382287, 3397392, 1294413 #### [facility] [address] [place] [address] Hematocrit (Bld) [Volume fraction] 41.5 % Normal 34.0-46.0 [facility] Comment on above: Performed By: #### 2 638596, 6131292, 8878336, 38180917, 0019447, 9754206 #### [facility] [address] [place] [address] Hemoglobin (Bld) [Mass/Vol] 13.2 g/dL Normal 12.0-16.0 [facility] Comment on above: Performed By: #### 2 532925, 7264042, 7286383, 51179491, 9622154, 7512357 #### [facility] [address] [place] [address] MCH (RBC) [Entitic mass] 25.0 pg Low 27.0-34.0 [facility] Comment on above: Performed By: #### 2 205869, 5564976, 1302965, 38450379, 1127590, 3959435 #### [facility] [address] [place], [place] [address] MCHC (RBC) [Mass/Vol] 31.7 g/dL Low 33.3-35.7 [facility] Comment on above: Performed By: #### 2 136346, 7578946, 5439627, 00987860, 0805159, 8029481 #### [facility] [address] [place], [place] [address] MCV (RBC) [Entitic vol] 78.7 fL Low 80.0-100.0 [facility] Comment on above: Performed By: #### 2 144544, 4966795, 9688384, 11883806, 0319774, 6361727 #### [facility] [address] [place] [address] Platelet mean volume (Bld) [Entitic vol] 9.4 fL Normal 6.4-10.8 [facility] Comment on above: Performed By: #### 2 951717, 9625193, 7016700, 45840885, 6609399, 6888148 #### [facility] [address] [place], [place] [address] Platelets (Bld) [#/Vol] 268.0 E9/L Normal 150. 0-500. 0 [facility] Comment on above: Performed By: #### 2 803918, 2127095, 6775695, 32673786, 1414158, 0048213 #### [facility] [address] [place] [address] RBC (Bld) [#/Vol] 5.3 E12/L Normal 4.3-5.9 [facility] Comment on above: Performed By: #### 2 317028, 4007230, 3402417, 11463731, 4723650, 8720109 #### [facility] [address] [place] [address] WBC corrected for nucl RBC Auto (Bld) [#/Vol] 10.6 E9/L Normal 4.0-11.0 [facility] Comment on above: Performed By: #### 2 693613, 2476782, 0566550, 84475297, 5599919, 9990777 #### [facility] [address] [place] [address] Creatinineon 12-14-2018 Creatinine [Mass/Vol] 0.7 mg/dL Normal 0.5-1.3 [facility] Comment on above: Performed By: #### 2 368343, 7574677, 8265356, 84116267, 1368141, 8305057 #### [facility] [address] [place] [address] Glucoseon 12-14-2018 Glucose [Mass/Vol] 138 mg/dL Normal 55-199 [facility] Comment on above: Performed By: #### 2 627387, 9585922, 3326266, 83490884, 2094313, 8060405 #### [facility] [address] [place] [address] Lyteson 12-14-2018 Anion gap [Moles/Vol] 17 mmol/L High 6-16 [facility] Comment on above: Performed By: #### 2 156020, 9652178, 3158189, 19989368, 0261805, 1210809 #### [facility] [address] [place] [address] Chloride [Moles/Vol] 95 mmol/L Low 101-111 [facility] Comment on above: Performed By: #### 2 523308, 7893443, 2372555, 34533319, 4685870, 1063417 #### [facility] [address] [place] [address] CO2 [Moles/Vol] 26 mmol/L Normal 21-31 [facility] Comment on above: Performed By: #### 2 333787, 9116226, 4973627, 79386671, 3020103, 5474675 #### [facility] [address] [place] [address] Potassium [Moles/Vol] 3.9 mmol/L Normal 3.5-5.3 [facility] Comment on above: Performed By: #### 2 158990, 3938733, 8829216, 79846804, 4789802, 5101692 #### [facility] [address] [place] [address] Sodium [Moles/Vol] 134 mmol/L Low 135-145 [facility] Comment on above: Performed By: #### 2 532207, 3548028, 4275311, 29666274, 0031965, 4433876 #### [facility] [address] [place] [address] XR Chest 2 Viewson 9 XR Chest [...] MD Transcribed by: MAGEN Technologist: KRISTYN Normal [facility] eGFRon 12-14-2018 GFR/1.73 sq M predicted among blacks MDRD (S/P/Bld) [Vol rate/Area] mL/min/{1.73_m2} Normal >=59 [facility] Comment on above: Order Comment: Order added by Discern Expert. Result Comment: eGFR is race adjusted. AA=. Performed By: #### 2 921183, 8195232, 6056302, 07753021, 8223269, 9206155 #### [facility] [address] [place] [address] GFR/1.73 sq M predicted among non-blacks MDRD (S/P/Bld) [Vol rate/Area] mL/min/{1.73_m2} Normal >=59 [facility] Comment on above: Order Comment: Order added by Discern Expert. Result Comment: [employer] stefanie kidney disease could be indicated at eGFR's of less than 60 mL/min/1.73m2. Kidney failure is indicated at less than 15 mL/min/1.73m2. Performed By: #### 2 565789, 2151301, 4405800, 54180444, 7591093, 4719678 #### [facility] [address] [place] [address] Vital Signs Date Time Vital Sign Value Performing Clinician Facility 09-30-2023 09:36-0400 Body height 165.1 cm PHYSICIAN NO [facility] 09-30-2023 09:36-0400 Body mass index (BMI) [Ratio] 46.2 kg/m2 PHYSICIAN NO [facility] 09-30-2023 09:36-0400 Body temperature 97.6 [degF] PHYSICIAN NO [facility] 09-30-2023 09:36-0400 Body weight 126.09 kg PHYSICIAN NO [facility] 09-30-2023 09:36-0400 Diastolic blood pressure 85 mm[Hg] PHYSICIAN NO [facility] 09-30-2023 09:36-0400 Heart rate 87 /min PHYSICIAN NO [facility] 09-30-2023 09:36-0400 Respiratory rate 20 /min PHYSICIAN NO [facility] 09-30-2023 09:36-0400 SaO2% (BldA) [Mass fraction] 98 % PHYSICIAN NO [facility] 09-30-2023 09:36-0400 Systolic blood pressure 139 mm[Hg] PHYSICIAN NO [facility] 03-02-2023 10:45-0500 Body height 165.1 cm Tyler Jean Other [employer] Other 03-02-2023 10:45-0500 Body mass index (BMI) [Ratio] 44.76 kg/m2 Tyler Ted Other [employer] Other 03-02-2023 10:45-0500 Body temperature 96.7 [degF] Tyler Ted Other [employer] Other 03-02-2023 10:45-0500 Body weight 122.02 kg Tyler Ted Other [employer] Other 03-02-2023 10:45-0500 Diastolic blood pressure 82 mm[Hg] Tylernirav Jean Other [employer] Other 03-02-2023 10:45-0500 Respiratory rate 18 /min Tyler Jean Other [employer] Other 03-02-2023 10:45-0500 SaO2% (BldA) [Mass fraction] 96 % Tyler Ted Other [employer] Other 03-02-2023 10:45-0500 Systolic blood pressure 136 mm[Hg] Tyler Jean Other [employer] Other 09-21-2022 09:11-0400 Body weight 128.72 kg CLIENT SERVICE CONSULTANTNohelia Alvarado Work Phone: [facility] 09-21-2022 09:11-0400 Diastolic blood pressure 91 mm[Hg] CLIENT SERVICE CONSULTANT Elizabeth Myerholtz Work Phone: [facility] 09-21-2022 09:11-0400 Heart rate 88 /min CLIENT SERVICE CONSULTANT Elizabeth Myerholtz Work Phone: [facility] 09-21-2022 09:11-0400 Respiratory rate 20 /min CLIENT SERVICE CONSULTANT Elizabeth Myerholtz Work Phone: [facility] 09-21-2022 09:11-0400 SaO2% (BldA) [Mass fraction] 96 % RHEA Alvarado Work Phone: [facility] 09-21-2022 09:11-0400 Systolic blood pressure 145 mm[Hg] RHEA Alvarado Work Phone: [facility] 08-16-2022 13:57-0400 Body temperature 98 [degF] RHEA Alvarado Work Phone: [facility] 08-16-2022 13:42-0400 Body height 165.1 cm RHEA Alvarado Work Phone: [facility] 07-03-2022 08:14-0500 Body temperature 97.9 [degF] Acosta Schafer MD Work Phone: [employer] 07-03-2022 08:14-0500 Diastolic blood pressure 70 mm[Hg] Acosta Schafer MD Work Phone: [employer] 07-03-2022 08:14-0500 Heart rate 83 /min Acosta Schafer MD Work Phone: [employer] 07-03-2022 08:14-0500 Respiratory rate 18 /min Acosta Schafer MD Work Phone: [employer] 07-03-2022 08:14-0500 SaO2% (BldA) [Mass fraction] 98 % Acosta Schafer MD Work Phone: [employer] 07-03-2022 08:14-0500 Systolic blood pressure 129 mm[Hg] Acosta Schafer MD Work Phone: [employer] 07-02-2022 09:45-0500 Body mass index (BMI) [Ratio] 50.66 kg/m2 Acosta Schafer MD Work Phone: [employer] 07-02-2022 09:45-0500 Body weight 129.73 kg Acosta Schafer MD Work Phone: [facility] GMI 06-24-2022 11:20-0500 Body height 160 cm Mloz Rn [facility] GMI 06-24-2022 11:20-0500 Body mass index (BMI) [Ratio] 50.79 kg/m2 [facility] Rn [facility] 06-24-2022 11:20-0500 Body temperature 97.9 [degF] [facility]loz Rn [facility] [employer] 06-24-2022 11:20-0500 Body weight 130.05 kg Mloz Rn [facility] GMI 06-24-2022 11:20-0500 Diastolic blood pressure 87 mm[Hg] [facility]loz Rn [facility] 06-24-2022 11:20-0500 Heart rate 73 /min [facility]loz Rn [facility] GMI 06-24-2022 11:20-0500 Respiratory rate 16 /min Mloz Rn [facility] GMI 06-24-2022 11:20-0500 SaO2% (BldA) [Mass fraction] 98 % [facility]loz Rn [facility] 06-24-2022 11:20-0500 Systolic blood pressure 142 mm[Hg] Mloz Rn [facility] 05-18-2022 08:46-0500 Body height 165.1 cm Acosta Schafer MD Work Phone: [facility] Work Phone: 05-18-2022 08:46-0500 Body mass index (BMI) [Ratio] 45.93 kg/m2 Acosta Schafer MD Work Phone: [facility] Work Phone: 05-18-2022 08:46-0500 Body surface area Derived from formula 2.27 m2 Acosta Schafer MD Work Phone: [facility] Work Phone: 05-18-2022 08:46-0500 Body weight 125.19 kg Acosta Schafer MD Work Phone: [facility] Work Phone: Encounters Encounter Date Encounter Type Care Provider Facility Start: 09-30-2023 End: 09-30-2023 ambulatory PHYSICIAN NO [facility] Work Phone: Start: 09-30-2023 End: 09-30-2023 Patient encounter procedure PHYSICIAN NO [facility] Ambulatory Work Phone: Start: 09-30-2023 Registered Recurring PHYSICIAN NO ABHIJIT APOLINAR [facility] Acute Work Phone: Start: 09-30-2023 ambulatory Lorrie Baig Facility: [facility] Start: 09-07-2023 End: 09-07-2023 Patient encounter procedure PHYSICIAN NO [facility] Work Phone: Start: 09-07-2023 End: 09-07-2023 ambulatory Elizabeth Alvarado Facility:[facility] Start: 08-24-2023 End: 08-24-2023 Patient encounter procedure RHEA Alvarado Work Phone: [facility] Start: 08-24-2023 End: 08-24-2023 ambulatory Elizabeth Alvarado [facility] Work Phone: Start: 08-24-2023 End: 08-24-2023 Departed Referred CLIENT SERVICE CONSULTANT Elizabeth Alvarado Work Phone: [facility] Start: 05-10-2023 End: 05-10-2023 Patient encounter procedure RHEA Alvarado Work Phone: [facility] Work Phone: Start: 05-10-2023 End: 05-10-2023 ambulatory RHEA Alvarado Work Phone: [facility] Work Phone: Start: 03-02-2023 End: 03-02-2023 ambulatory Tyler Jean Other [employer] Other Start: 03-02-2023 Office outpatient vi sit 25 minutes Tyler Ted [facility] Vascular Surgery Start: 02-14-2023 End: 02-14-2023 ambulatory CLIENT SERVICE CONSULTANT Elizabeth Alvarado Work Phone: [facility] Work Phone: Start: 02-14-2023 End: 02-14-2023 Patient encounter procedure RHEA Alvarado Work Phone: [facility] Work Phone: Start: 01-26-2023 [facility] visit new patient Sindy rubio [facility] Vascular Surgery Start: 01-26-2023 End: 01-26-2023 ambulatory CLIENT SERVICE CONSULTANTNohelia Alvarado Work Phone: [employer] Other Start: 01-26-2023 End: 01-26-2023 Patient encounter procedure RHEA Alvarado Work Phone: [facility]XRay [facility] Work Phone: Start: 12-29-2022 Patient encounter procedure Acosta Schafer MD Work Phone: [facility] Work Phone: Start: 12-29-2022 ambulatory Provider Pending Facili ty:[id number] Start: 11-25-2022 End: 11-25-2022 Patient encounter procedure RHEA Alvarado Work Phone: [facility]-Respiratory Therapy Work Phone: Start: 09-22-2022 Patient encounter procedure Acosta Schafer MD Work Phone: [facility] Work Phone: Start: 09-22-2022 ambulatory Provider Pending Facili ty:[id number] Start: 09-21-2022 End: 09-21-2022 ambulatory RHEA Hurley Justinamichelebijupaula Work Phone: [facility] Work Phone: Start: 09-21-2022 End: 09-21-2022 Registered Recurring RHEA Johnson Justinamichelebijupaula Work Phone: [facility]Cancer [facility] Work Phone: Start: 08-11-[address] Acosta Schafer Facility:[id number] Start: 08-04-2022 End: 08-04-2022 Discharged Recurring RHEA Johnson Wilianpaula Work Phone: [facility]-Physical Therapy [facility] Start: 07-23-2022 End: 07-23-2022 ambulatory RHEA Hurley Justinamichelebijupaula Work Phone: [facility] Work Phone: Start: 07-23-2022 End: 07-23-2022 Patient encounter procedure RHEA Hornsinghpaula Work Phone: [facility]-Lab [facility] Work Phone: Start: 07-16-2022 Telephone encounter Acosta Crews MD Work Phone: [facility] Work Phone: Start: 07-14-2022 Patient encounter procedure Acosta Schafer MD Work Phone: [facility] Work Phone: Start: 07-14-[address] Acosta Schafer Facility:[id number] Start: 07-07-2022 AUDIT Acosta sow MD Work Phone: [facility] Work Phone: Start: 07-01-2022 ambulatory Provider Pending Facili ty:[id number] Start: 07-01-2022 End: 07-03-2022 Evaluation and management of inpatient ACOSTA Delaney [facility] Start: 07-01-2022 SURGNON, Provider: Acosta Schafer, Status: Pen, Time: 7:00 AM Natali Tyson PT, DPT Work Phone: [facility] Work Phone: Start: 07-01-2022 End: 07-03-2022 Evaluation and management of inpatient Acosta Schafer MD Work Phone: [facility] Tele Comment on above: 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 Merrill martinez [facility] Facility:[id number] Start: 06-25-2022 Encounter for other preprocedural examination Mr. Mrerill Hernandez Alejandro II [facility] Start: 06-24-2022 End: 06-29-2022 ambulatory ACOSTA SCHAFER [facility] Start: 06-24-2022 End: 06-28-2022 Subsequent hospital visit by physician Juan Manzano Rm 2 Kip Burleson Pre-Admission Testing Start: 05-18-2022 Patient encounter procedure Acosta Schafer MD Work Phone: [facility] Work Phone: Start: 05-18-[address] Acosta Schafer Facility:[id number] Start: 05-07-2022 End: 05-07-2022 Patient encounter procedure RHEA Alvarado Work Phone: [facility]-Electrodiagnostics Work Phone: Start: 04-13-2022 End: 04-13-2022 ambulatory RHEA Alvarado Work Phone: [facility] Work Phone: Start: 04-13-2022 End: 04-13-2022 Patient encounter procedure RHEA Morinbijupaula Work Phone: [facility]Lab [facility] Start: 12-17-2021 End: 12-17-2021 Patient encounter procedure RHEA Johnson Christiano Work Phone: [facility]-Nuc Med [facility] Start: 12-07-2021 End: 12-07-2021 Patient encounter procedure RHEA Johnson Wilianpaula Work Phone: [facility]trasound [facility] Start: 12-03-2021 End: 12-03-2021 Departed Referred RHEA Johnson Christiano Work Phone: [facility] Procedures Date Procedure [...] TO MG FOR LOW K Arya Coronado CLIENT SERVICE CONSULTANT - ROOM ATTENDANT Work Phone: Start: 07-03-2022 Blood count complete automated Arya Coronado CLIENT SERVICE CONSULTANT - ROOM ATTENDANT Work Phone: Start: 07-02-2022 Dup-scan xtr veins unilateral/limited study Carlos A Hou DO Work Phone: Start: 07-02-2022 BASIC METABOLIC PANE L W/ REFLEX TO MG FOR LOW K Arya Coronado CLIENT SERVICE CONSULTANT - ROOM ATTENDANT Work Phone: Start: 07-02-2022 Blood count complete automated Adjyoan Coronado CLIENT SERVICE CONSULTANT - ROOM ATTENDANT Work Phone: Start: 07-01-2022 Radiologic examinati on knee 1/2 views Arya Coronado CLIENT SERVICE CONSULTANT - ROOM ATTENDANT Work Phone: Start: 07-01-2022 End: 07-01-2022 Revj [...] Start: 12-17-2021 Radionuclide three-p hase bone study CLIENT SERVICE CONSULTANTNohelia Alvarado Work Phone: Start: 12-07-2021 US scan of thyroid CLIENT SERVICE CONSULTANTNohelia Alvarado Work Phone: Start: 02-01-2019 Anesthesia consultation Start: 01-24-2019 Anesthesia consultation Plan of Treatment Date Care Activity Detail Author Start: 06-29-2023 FUV, Provider: Acosta Schafer, Status: Pen, Time: 2:15 PM FUV, Provider: Acosta Schafer, Status: Carlyle, Time: 2:15 PM -[facility]Audelia sow MS Work Phone: Start: 02-17-2023 Screening for malign ant neoplasm of colon [facility] Start: 12-29-2022 FUV, Provider: Acosta Schafer, Status: Pen, Time: 1:45 PM FUV, Provider: Acosta Schafer, Status: Pen, Time: 1:45 PM [facility] Work Phone: Start: 08-11-2022 FUV, Provider: Acosta Schafer, Status: Pen, Time: 9:45 AM FUV, Provider: Acosta Schafer, Status: Pen, Time: 9:45 AM [facility] Work Phone: Start: 07-23-2022 [facility] Start: 07-14-2022 POV, Provider: Acosta Schafer, Status: Pen, Time: 9:00 AM POV, Provider: Acosta Schafer, Status: Pen, Time: 9:00 AM [facility] Work Phone: Start: 07-01-2022 End: 07-01-2022 Admission to same day surgery center 07/01/2022 Surgery IP Unit Acosta Schafer MD [address] [place] [address] RIGHT KNEE RIGHT TOTAL KNEE REVISION INSTRUMENTATION ANTONELLA FEMORAL & SCIATIC BLOCK [facility] Comment on above: RIGHT KNEE RIGHT TOT AL KNEE REVISION INSTRUMENTATION ANTONELLA FEMORAL & SCIATIC BLOCK Start: 07-01-2022 End: 07-01-2022 Revj total knee arthrp w/wo algrft 1 component KNEE TOTAL ARTHROPLASTY REVISION Loosening of unicondylar knee replacement (HCC) 07/01/2022 10:50 AM [facility] Start: 07-01-2022 Subsequent hospital visit by physician 07/01/2022 Hospital Encounter IP Unit Acosta Schafer MD [address] [place] [address] [facility] Start: 07-01-2022 SURGNONUH, Provider: Acosta Schafer, Status: Pen, Time: 7:00 AM SURGNONUH, Provider: Acosta Schafer, Status: Pen, Time: 7:00 AM [facility] Work Phone: Start: 06-25-2022 PREADMIT, Provider: Merrill Aleajndro, Status: Pen, Time: 1:45 PM PREADMIT, Provider: Merrill Alejandro, Status: Pen, Time: 1:45 PM [facility] Work Phone: Start: 06-25-2022 [id number], Provider : Natali Tyson, Status: Pen, Time: 1:00 PM [id number], Provider: Natali Tyson, Status: Pen, Time: 1:00 PM [facility] Work Phone: Start: 06-24-2022 Annual Wellness Visi t (AWV) Annual Wellness Visit (AWV) [facility] Start: 12-17-2021 Radionuclide three-p hase bone study NM bone 3 phase [facility] Start: 12-17-2021 End: 12-17-2021 Patient encounter procedure Departed [facility]Nuc [facility] Start: 12-07-2021 US scan of thyroid US thyroid [facility] Start: 12-07-2021 End: 12-07-2021 Patient encounter procedure Departed [facility] Start: 11-23-2021 Influenza vaccination Flu vaccine (# 1) [facility] Start: 05-18-2021 COVID-19 Vaccine (4 - Booster for Moderna series) COVID-19 Vaccine (4 - Booster for Moderna series) [facility] Start: 02-23-2018 Screening for malign ant neoplasm of breast [facility] Start: 02-23-2018 Shingles vaccine (1 of 2) Shingles v accine (1 of 2) [facility] Start: 02-23-2013 Screening for malign ant neoplasm of colon [facility] Start: 2008 Lipid panel Lipids [facility] [employer] Start: 02-23-2003 Diabetes screen Diabetes screen [facility] [employer] Start: 02-23-1998 Screening for malign ant neoplasm of cervix [facility] [employer] Start: 02-23-1989 Screening for malign ant neoplasm of cervix Pap smear [facility] Start: 02-23-1987 DTaP/Tdap/Td vaccine (1 - Tdap) DTaP/Tdap/Td vaccine (1 - Tdap) [facility] [employer] Start: 02-23-1986 Hepatitis C screening Hepatitis C sc reen [facility] Start: 02-23-1983 HIV screening HIV screen [facility] Start: 1980 Depression Screen Depression Screen [facility] [employer] Start: 1968 COVID-19 Vaccine (#1) COVID-19 Vacci ne (#1) [facility] [employer] End: 07-04-2022 Basic Metabolic Panel w/ Reflex to MG Basic Metabolic Panel w/ Reflex to MG Lab Routine Daily for 3 Days starting 07/02/2022 until 07/04/2022, 2 completed [facility] [employer] Phone: Comment on above: Daily for 3 Days sta rting 07/02/2022 until 07/04/2022, 2 completed End: 07-04-2022 CBC panel - Blood by Automated count CBC Lab Routine Daily for 3 Days starting 07/02/2022 until 07/04/2022, 2 completed [facility] [employer] Phone: Comment on above: Daily for 3 Days sta rting 07/02/2022 until 07/04/2022, 2 completed Comprehensive metabo lic 2000 panel - Serum or Plasma [facility] Comprehensive metabo lic 2000 panel - Serum or Plasma [facility] IgA [Mass/volume] in Serum or Plasma [facility] IgG [Mass/volume] in Serum or Plasma [facility] IgM [Mass/volume] in Serum or Plasma [facility] Oxygen therapy [Mini [facility] Data Set] Initiate Oxygen Therapy Protocol Respiratory Care Routine Daily until discontinued starting 07/01/2022 [facility] [employer] Phone: Comment on above: Daily until disconti nued starting 07/01/2022 Spirometry panel Incentive tonja metry Respiratory Care Routine Every 2hr while awake until discontinued starting 07/01/2022 JULIO REICH [employer] Work Phone: Comment on above: Every 2hr while awak e until discontinued starting 07/01/2022 [facility] Immunizations Immunization Date Immunization Notes Care Provider Fa cility 03-16-2016 influenza virus vaccine, unspecified formulation RHEA Alvarado Work Phone: [facility] 03-16-2016 influenza, injectabl e, quadrivalent, preservative free Sindy Davila Other [employer] Other Payers Date Payer Category Payer Private Health Insurance [id number] 2022 Medicaid [id number] 2022 Medicare [id number] 2022 Private Health Insurance [id number] 2022 Self-pay [id number] 2014 Private Health Insurance [id number] 1970 Unknown [id number] 2..[id number]. 182 1968 Unknown [id number] 2.16.840.1.298928.3.579.2. 182 1968 Unknown [id number] 2.16.840.1.415619.3.579.2. 356 1968 Unknown [id number] 2.16.840.1.697742.3.579.2. 1068 1968 Unknown [id number] 2.16.840.1.891271.3.579.2. 1068 1968 Unknown [id number] 2.16.840.1.338047.3.579.2. 1067 1968 Unknown [id number] 2.16.840.1.232630.3.579.2. 1067 1968 Unknown [id number] 2.16.840.1.647958.3.579.2. 1067 1968 Unknown [id number] 2.16.840.1.316234.3.579.2. 1067 1968 Unknown [id number] 2.16.840.1.352989.3.579.2. 1068 Medicare [id number] Medicare [place] MediBlue Dual Adv JR [id number] Unknown [facility] DUAL COMPLETE Unknown [id number] [id number]. 531 Unknown [id number] 2.16.840.1.612431.3.579.2. 531 Unknown [id number] 2.16.840.1.051512.3.579.2. 531 Unknown [id number] 2.16.840.1.047867.3.579.2. 531 Unknown [id number] 2.16840.1.719551.3.579.2. 531 Social History Date Type Detail Facility Start: 06-03-2017 End: 09-21-2022 Tobacco smoking status NHIS Never smoked tobacco (finding) [facility] Start: 1970 Sex Assigned At Female F [facility] Start: 06-24-2022 Tobacco use and exposure Smokeless tobacco non-user JULIO [employer] Phone: Start: 06-24-2022 End: 03-10-2023 Alcohol intake Current drinker of alcohol (finding) JULIO [employer] Phone: Start: 06-24-2022 Alcohol Comment occasional [employer] Phone: Start: 1970 Sex Assigned At Not on file B ON [employer] Phone: Start: 06-14-2022 End: 06-24-2022 Exposure to SARS-CoV-2 (event) Not sure JULIO [employer] Phone: Sex Assigned At Sex Assigned At Bir th [employer] Other Medical Equipment Procedure Code Equipment Code Equipment Origin al Text Equipment Identifier Dates Cement Bioprep S t - [id number] Start: 07-01-2022 Stem Tib L100mm Cik10ac Knee Tot Stbl Joey Roberta Triath[employer] - [id number] [id number] , [id number] FDA Start: 07-01-2022 Clinical Notes [...] of both lower extremities (ICD-10 - I87.303) [employer] Other 10-04-2023 Evaluation note* Encounter Date Diagnosis [...] Bilateral lower extremity edema (ICD-10 - R60.0) [employer] Other 04-24-2023 Consult note Author Zoey Ramirez [facility] August 16, 2022 3:19pm Note Date/Time August 16, 2022 2:2 0pm [facility] [place] [address] Hem/Onc Consult Note - OP Signed Patient: Geeta Shelton MR#: [id number] : 1970 Acct:[id number] Age/Sex: 52 / F Type: REG RCR Copies to: Elizabeth Alvarado APRN,ROOM ATTENDANT Lorire Baig DO~ HPI Date/Time of Service: Date of Service: 08/16/2022 Time of Service: 14:19 Referring Provider/PCP: Referring Provider: Lorrie Baig DO PCP: Elizabeth Alvarado APRN, SUPERVISOR PUBLIC MESSAGE SERVICE-C - History of Present Illness Reason for [...] and/or blood disorder. No history of thrombosis. [facility] - Medical History Medical History: Medical [...] Additional comments: Patient: Geeta Shelton MR#: [id number] : 1970 Acct:[id number] Age/Sex: 51 / F ADM Date: 2 Loc: [place] Room: Type: [facility] Attending Dr: Tyler Villeda PA-C Copies to: CARLI Noyola Jeffrey S DO~ Ordering Provider: Tyler Villeda PA-C Date of Service: 12/17/21 [place] bone 3 phase: M25.562, M25.561 Nuclear medicine [...] for coordination of care (as documented) and [id number]-ftid counseling of patient and/or family. Dictated By: Zoey Ramirez APRN DD/ [id number] Signed By: <Electronically signed by RHEA Ramirez> 08/16/22 7216 [facility] Work Phone: 1(871) 399-737003-11-2023 History of Present illness Narrative* Sosa Poon [...] tape after removal as ordered. Patient has [facility] set up. Knee immobilizer sent with pt, [...] Therapy Med Surg Daily Treatment Note Facility/Department: [address] ORTHO TELE Room: [facility] [address] NAME: Geeta Shelton : 1970 (52 y.o.) [...] BLOCK-DEMETRIA performed by Acosta Schafer MD at [facility] OR Chart Reviewed: Yes Restrictions: Restrictions/Precautions: Fall [...] Recommendations: Continue to assess pending progress Goals Skilled Nursing Goals Skilled Nursing Goal 1: Bed mobility with indep Skilled Nursing Goal 2: Functional transfes with indep Rotary Engine Assembler Goal 3: Amb 50ft with 2ww and indep Rotary Engine Assembler Goal 4: 4 steps with handrail and SBA Skilled Nursing Goal 5: indep with HEP to improve [...] Therapy Med Surg Daily Treatment Note Facility/Department: [address] ORTHO TELE Room: [facility]/W268-01 NAME: Geeta Shelton : 1970 (52 y.o.) [...] Recommendations: Continue to assess pending progress Goals Skilled Nursing Goals Skilled Nursing Goal 1: Bed mobility with indep Skilled Nursing Goal 2: Functional transfes with indep Rotary Engine Assembler Goal 3: Amb 50ft with 2ww and indep Skilled Nursing Goal 4: 4 steps with handrail and SBA Skilled Nursing Goal 5: indep with HEP to improve LE strength and ROM Patient Goals Patient Goals : to go home PLAN General Plan: 2 times a day 7 days a week Safety Devices Type of Devices: All fall risk precautions in place, Call light within reach, Left in bed, Bed alarm in place, Nurse notified [facility] (6 CLICK) BASIC MOBILITY AM-PAC Inpatient [...] the task * Arya Coronado, RHEA - ROOM ATTENDANT - 07/02/2022 9:49 AM EST Progress Note [...] pack per his order. * Mic Aparicio AUTOMATION QA ANALYST - 07/01/2022 5:51 PM EST Images from [...] puffs by inhalation with spacer [] Ipratropium [place] 0.02% unit dose by aerosol Ipratropium [place] MDI 2 puffs by inhalation with spacer [] Duoneb (Ipratropium + Albuterol) unit dose by aerosol Ipratropium MDI + Albuterol MDI 2 puffs byinhalation w/spacer MDI to Aerosol [] Albuterol Sulfate MDI Albuterol Sulfate 0.083% unit dose by aerosol [] Levalbuterol MDI 2 puffs by inhalation Levalbuterol 1.25 mg unit dose by aerosol [] Ipratropium [place] MDI by inhalation Ipratropium [place] 0.02% unit dose by aerosol [] Combivent (Ipratropium + Albuterol) MDI by inhalation Duoneb (Ipratropium + Albuterol) unit doseby aerosol Treatment Assessment [Frequency/Schedule]: Change frequency to: NO CHANGE per Protocol, P&T, [facility] Points 0 1 2 3 4 [...] (52 y.o.) CODE STATUS: Full Code Room: [place] [address] Date of Service: 07/01/2022 Patient Diagnosis(es): Loosening [...] Ambulation Assistance: Independent Transfer Assistance: Independent Active Disposal Worker: Yes Mode of Transportation: Car OBJECTIVE: Orientation Status: Orientation Overall Orientation Status: Within Functional Limits Orientation Level: Oriented X4;Oriented to place;Oriented to time;Oriented to situation;Oriented toperson Observation: Observation/Palpation Posture: Good Observation: right knee incision with bandage and knee immobilizer in place Cognition Status: Cognition Overall Cognitive Status: [facility] Cognition Comment: Follows commands consistently Perception [...] 6 complexities Assistance / Modification: Mod A [facility] (Six Click) Self care Score How [...] How much help for eating meals?: None -[facility] Inpatient Daily Activity Raw Score: 19 AM-[facility] Inpatient ADL T-Scale Score : 40.22 [...] Physical Therapy Med Surg Initial Assessment Facility/Department: [address] TELE Room: [place] [address] NAME: Geeta Shelton : 1970 (52 y.o.) [...] Ambulation Assistance: Independent Transfer Assistance: Independent Active Disposal Worker: Yes Mode of Transportation: Car OBJECTIVE: Vision [...] Goals: Patient Goals : to go home Rotary Engine Assembler Goals Rotary Engine Assembler Goal 1: Bed mobility with indep Rotary Engine Assembler Goal 2: Functional transfes with indep Rotary Engine Assembler Goal 3: Amb 50ft with 2ww and indep Rotary Engine Assembler Goal 4: 4 steps with handrail and SBA Rotary Engine Assembler Goal 5: indep with HEP to improve [...] accomplish the task documented in [facility] Work Phone: 1(833) 843-115403-09-2023 History of Present illness Narrative* History of [...] she will most likely do this at [facility] in [place]. * Physical exam * General: No acute [...] see dictated x-ray report * Procedure * [place] removed Steri-Strips placed without complication * Assessment [...] grammatical areas may persist related to the Tunii software * Merrill Alejandro PA-C * . [facility] Work Phone: [phone]) 975-858803-07-2023 Hospital Discharge instructions* Discharge Instructions* Arya Coronado [...] Hospital Unit/Room#: W268/W268-01 Discharging Unit Phone Number: [phone] Emergency Contact: Extended Emergency Contact Information Primary Emergency Contact: kena travis [place] Relation: Other Past Surgical History: Past Surgical History: Procedure Laterality Date JOINT REPLACEMENT Left knee PARTIAL KNEE ARTHROPLASTY Right REVISION TOTAL KNEE ARTHROPLASTY Right 07/01/2022 RIGHT KNEE RIGHT TOTAL KNEE REVISION INSTRUMENTATION ANTONELLA FEMORAL & SCIATIC BLOCK-DEMETRIA performed by Acosta Schafer MD at [facility] Immunization History: There is no immunization [...] Assisted Dressing Assisted Toileting Independent Feeding Independent Insurance Agent Independent Med Delivery whole Wound Care Documentation [...] applicable) Name: Address: Dialysis Schedule: Phone: Fax: Roll Up Operator/Maintenance Painter Apprentice signature: {Esignature:[id number]} PHYSICIAN SECTION Prognosis: {Prognosis:7215811185} Condition at Discharge: {MH Patient Condition:356378088} Rehab Potential (if transferring to Rehab): {Prognosis:2999303791} Recommended Labs or Other Treatments After Discharge: Physician Certification: I certify the above information and transfer of Geeta Shelton is necessary for the continuing treatment of the diagnosis listed and that she requires {Admit to AppropriateLevel of Care:57463} for {GREATER/LESS:065826316} 30 days. Update Admission H&P: {CHP DME Changes in HandP:294066180} PHYSICIAN SIGNATURE: {Esignature:357345541} * Attachments The following attachments cannot be sent through Care Everywhere. * Total Knee Replacement Surgery: General Info (Wallisian) * Wound: VAC (Vacuum-Assisted Closure) (Wallisian) documented in this encounterUN[facility]ITAL[facility] Workflow Management Phone: 1(910) 864-842203-02-2023 History of Present illness Narrative* Sindy Pelaez RN - 06/24/2022 11:10 AM EST Yellow PAT and Dynahex instruction sheet reviewed with patient, who verbalized understanding. documented in this encounterUNION [facility]OSPITALPick[facility] [employer] Phone: evaluation noteNo assessment information available [facility] Work Phone: Evaluation note* Diagnosis Status post revision of total knee replacement, right- Primary Status post revision of total replacement of right knee Acute postoperative pain Other acute postoperative pain documented in this encounter [facility] Work Phone: evaluation note* Diagnosis Onset Date Resolution Status MGUS (monoclonal gammopathy of unknown significance) acute Microcytosis acute Peripheral neuropathy acute [facility] Work Phone: Evaluation note* Diagnosis Onset Date Resolution Status MGUS (monoclonal gammopathy of unknown significance) acute Microcytosis acute Peripheral neuropathy acute MGUS (monoclonal gammopathy of unknown significance) acute [facility] Work Phone: History general Narrative - Reported* Type Description Date Medical History asthma Medical History snoring Medical History Allergic Rhinitis Medical History Essential Hypertension Surgical History Revise/Replace left knee joint Surgical History Varicose Veins 2010 Surgical History Right ankle surgery Hospitalization History See above [employer] Other History of Present illness Narrative* New [...] grammatical areas may persist related to the Tunii software * Acosta Schafer MD * Senior Attending Physician * [facility] * . -[facility] Work Phone: [...] grammatical areas may persist related to the Tunii software * Acosta Schafer MD * Senior Attending Physician * [facility] * . [facility] Work Phone: [...] will be re-assessed and goals updated. [facility] Work Phone: History of Present illness Narrative* [...] will be re-assessed and goals updated. [facility] Work Phone: History of Present illness Narrative* [...] grammatical areas may persist related to the Tunii software * Acosta Schafer MD * Senior Attending Physician * [facility] * . [facility] Work Phone: [...] grammatical areas may persist related to the Tunii software * Merrill Alejandro PA-C * . -[facility] Work Phone: Progress note Author Krzysztof Salazar [facility] September 21, 2022 9:52am Note Date/Time September 21, 2022 9:49a m [facility] [place] [address] Hem/Onc Follow Up Note - OP Signed Patient: Geeta Shelton MR#: [id number] : 1970 Acct:[id number] Age/Sex: 52 / F Type: REG RCR Copies to: Elizabeth Alvarado APRN,ROOM ATTENDANT Lorrie Baig,~ Date of Service: 09/21/2022 Time [...] for coordination of care (as documented) and ritx-nn-dylz counseling of patient and/or family. [facility] - Medical History Medical History: Medical [...] by Krzysztof Salazar, II, DO> 09/21/22 0952 [facility] Work Phone: Reason for visit Narrative* Initial Evaluation, Pre-Op . * Referred by: [facility]. Acosta Schafer [facility] Work Phone: Reason for visit Narrative* Initial Evaluation, Pre-Op . * Referred by: Dr. Acosta Schafer [facility] Work Phone: Summary Purpose Family History No [...] right knee Born, Arya RamirezRHEA cedeño - ROOM ATTENDANT [address] [place] [address] Referral ID Status Reason Start Date Expiration Date V isits Requested Visits Authorized [id number] Open Specialty Services Required 07/01/2022 07/01/2023 1 1 Question Answer I certify that I, or a nurse practitioner or physician respiratory therapy assistant working with me, had an in-person encounter with the patient and the reason for the home care services is documented in the clinical note on: 07/01/2022 Will the referring provider be the attending provider for home health? [place] of attending provider for home health Dr. [...] CREATED AUTHOR 02/01/2019 Rober Baumann [facility] DATE CREATED AUTHOR AUTHOR'S ORGANIZ ATION 07/04/2022 [facility] DATE CREATED AUTHOR AUTHOR'S ORGANIZ ATION 07/08/2022 [facility] DATE CREATED AUTHOR AUTHOR'S ORGANIZ ATION 12/30/2022 [facility] DATE CREATED AUTHOR AUTHOR'S ORGANIZ ATION 01/09/2023 [facility] DATE CREATED AUTHOR AUTHOR'S ORGANIZ ATION 02/19/2024 [facility] DATE CREATED AUTHOR AUTHOR'S ORGANIZ ATION 06/12/2024 [facility] Care Teams (unrecognized sec tion and content) Team Status: Active Member Role Status Dates Elizabeth Alvarado APRN SUPERVISOR PUBLIC MESSAGE SERVICE-C Primary Care Provide r Active Team Status: Inactive Member Role Status Dates Elizabeth Alvarado , RHEA SUPERVISOR PUBLIC MESSAGE SERVICE-C Primar y Care Provider, Attending Provider Active Team Status: Inactive Member Role Status Dates Elizabeth Alvarado APRN SUPERVISOR PUBLIC MESSAGE SERVICE-C Primary Care Provide r Active Lorrie Baig DO Attending Provider Active Team Status: Inactive Member Role Status Dates Elizabeth Alvarado , RHEA SUPERVISOR PUBLIC MESSAGE SERVICE-C Primary Care Provide r Active JEREMIAS Cavazos-C Attending Provider Active Team Status: Inactive Member Role Status Dates Elizabeth Alvarado APRN SUPERVISOR PUBLIC MESSAGE SERVICE-C Attending Provider A ctive Services [facility] Primary Care Provider Active Appliance Mechanic Relationship Specialty Start Date End Date Elizabeth Alvarado PCP - General 07/01/22 Team Status: Active Member Role Status Dates Elizabeth Alvarado APRN SUPERVISOR PUBLIC MESSAGE SERVICE-C Primary Care Provide r Active Zoey Ramirez APRN Attending Provider Active Lorrie Baig DO Referring Provider Active Team Status: Inactive Member Role Status Dates Elizabeth Alvarado APRN SUPERVISOR PUBLIC MESSAGE SERVICE-C Primary Care Provide r Active Acosta Schafer Attending Provider Active Team Status: Inactive Member Role Status Dates Elizabeth Alvarado APRN SUPERVISOR PUBLIC MESSAGE SERVICE-C Primary Care Provide r Active Sindy Davila NP-C Attending Provider Active Team Status: Inactive Member Role Status Dates Elizabeth Alvarado , RHEA SUPERVISOR PUBLIC MESSAGE SERVICE-C Attending Provider A ctive Start: August 24, 2023 End: August 24, 2023 Team Status: Active Member Role Status Dates PHYSICIAN NO FAMILY Primary Care Provider Active Team Status: Inactive Member Role Status Dates Elizabeth Alvarado APRN SUPERVISOR PUBLIC MESSAGE SERVICE-C Attending Provider A ctive Start: September 07, 2023 End: September 07, 2023 PHYSICIAN NO FAMILY Primary Care Provider Active Start: September 07, 2023 End: September 07, 2023 Team Status: Active Member Role Status Dates Elizabeth Alvarado APRN SUPERVISOR PUBLIC MESSAGE SERVICE-C Primary Care Provide r Active Start: September 30, 2023 Zoey Ramirez APRN Active Start: September 30, 2023 Lorrie Baig DO Referring Provider Active Sta rt: September 30, 2023 Krzysztof Salazar II, DO Attending Provider Active Start: September 30, 2023 Team Status: Inactive Member Role Status Dates Elizabeth Alvarado APRN SUPERVISOR PUBLIC MESSAGE SERVICE-C Primary Care Provide r Active Start: September [...] 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 MO REVJ TOTAL KNEE ARTHRP W/WO ALGRFT 1 COMPONENT MO REVJ TOT KNEE ARTHRP FEM&ENTIRE TIBIAL COMPONE RIGHT KNEE RIGHT TOTAL KNEE REVISION INSTRUMENTATION ANTONELLA FEMORAL & SCIATIC BLOCK Acosta Schafer MD [address] [place] [address] [facility] [address] [place] [address] Referral ID Status Reason Start Date Expiration Date Visits Re quested Visits Authorized [id number] 1 1 Ordered Prescriptions (unrec ognized section [...] at 250 mL/hr, Administer over 60 Minutes, STRUCTURAL LAYOUT WORKER TO O.R., On Renee 07/01/22 at 0845, [...] BE BASED ON THE PRIMARY CLINICAL RECORDS. [facility]. provides no warranty or guarantee of the accuracy or completeness of information in this document.
== END 2024-09-26 08:45 | disposition home or self-care (01) ==
LOC: WC 08:46
PROVIDERS: Visit Provider Physician Assistant
DX: E11.621 Type 2 diabetes mellitus with foot ulcer (principal); L97.412 Non-pressure chronic ulcer of right heel and midfoot with fat layer exposed
CPT/HCPCS: 11043

== ENCOUNTER 2024-10-10 14:53 | Outpatient (OUT) | payer MEDICARE, MEDICAID, SELFPAY ==
--- OUTSIDE RECORDS SUMMARY | 2014-02-13 04:00 | XMS_ITS | Continuity of Care Document ---
Author Organization [facility] Address [address] [place] [address] Phone Care Team Providers Care Extraction Supervisor Name Role Phone Lazaro SUBHA July Unavailable [...] Diagnoses Date Provider Providers Copied on Encounter [facility], [address] [place] [address], [id number], [place] tel:[phone] Dental Clinic Dental examination Lazaro DMD July. [address] [place], [place], [id number], [place]. tel:[phone] [facility], [address] [place], [place], [id number], tel:[phone] Dental Clinic Dental examination Lazaro DMD Susan. [address] [place], [place], [id number], [place]. tel:[phone] [facility], [address] [place], [place], [id number], [place] tel:[phone] Dental Clinic Dental examination Sergey Higginbotham. [address] [place], [place], [id number], [place]. tel:[phone] Family History Family Member Type Diagnosis Age At Onset No Information Payers Payer name Insurance type Covered green party ID Lisbethrich fermin(s) D Medicaid Primary [facility] [id number] Social History Type Description Quantity Date Captured [...]
--- OUTSIDE RECORDS SUMMARY | 2024-03-28 04:45 | XMS_ITS ---
Author Organization The [facility] in [place] Address [address] [place] [address] Care Team Providers Care Factory Supervisor Name Role Phone Mimi Whitfield NP Primary Care Provider UnavailJun Call Unavailable [phone] Allergies Allergen (clinical drug ingredient) Drug/Non Drug Allergy documented on EMR Reaction Allergy Type Onset Date Status Penicillin Unknown Drug Allergy Active REASON FOR VISIT PEG review Medications Medication SIG (Take, Route, Fr equency, Duration) Notes Start Date End Date Status Gabapentin 300 MG 1 capsule Orally thr ee times a day for 30 days 03/28/2024 Active Ammonium Lactate 12 % 1 application Exte rnally Twice a day for 30 days 12/30/2023 Active Gabapentin 100 MG 1 capsule Orally Once a day Active Social History Tobacco Use: Social History Observation Description Date Details (start date - stop date) Never Smoker NA - NA Tobacco Control (Standard) Question Answer Notes Tobacco use: Nonsmoker Vital Signs Temperature 97.1 degrees Fahrenheit 03/28/20 24 Heart Rate 74 /min 03/28/2024 Height 65 in 03/28/2024 Oximetry 96 % 03/28/2024 Encounters Encounter Location Date Provider Diagnosis [facility] (PODIATRY) [address] [place] [address] [place] [address] 03/28/2024 Jun Gentile Charcot's joint, left ankle and foot M14.672 ; Displaced avulsion fracture of tuberosity of left calcaneus, initial encounter for closed fracture S92.032A ; Type 2 diabetes mellitus with diabetic polyneuropathy E11.42 and Peripheral vascular disease, unspecified I73.9 Assessments Encounter Date Diagnosis (ICD Code) Assessment Notes Treatment Notes Treatment Clinical Notes Section Notes 03/28/2024 Charcot's joint, left ankle and foot (ICD-10 - M14.672) Patient follows up for avulsion fracture of left calcaneus and is overall doing well. The pain that she has with this does not limit her in any way. I believe she just needs more time but did discuss physical therapy. After reviewing her ABIs, segmental pressures and PVRs I agree with the conclusion of mild occlusive arterial disease. Therefore it may be assumed that the pain that she has is neurologic. She is currently on gabapentin 100 mg 3 times a day and does not believe that it helps. I recommended to increase the gabapentin to 300 mg 3 times a day and discussed the potential side effects. I would like her to follow-up with either her neurologist and/or PCP regarding long-term maintenance of this medication and any other further dose changes.She will follow-up with me in 2 months for her Achilles no new x-rays are necessary 03/28/2024 Displaced avulsion fracture of tuberosity of left calcaneus, initial encounter for closed fracture (ICD-10 - S92.032A) 03/28/2024 Type 2 diabetes mellitus with diabetic polyneuropathy (ICD-10 - E11.42) 03/28/2024 Peripheral vascular disease, unspecified (ICD-10 - I73.9) Plan Of Treatment Medication Medication Name Sig Start Date Stop Date Notes Gabapentin 300 MG 1 capsule Orally thr ee times a day for 30 days 03/28/2024 Treatment Notes Assessment Notes Charcot's joint, left ankle and foot Patient follows up for avulsion fracture of left calcaneus and is overall doing well. The pain that she has with this does not limit her in any way. I believe she just needs more time but did discuss physical therapy. After reviewing her ABIs, segmental pressures and PVRs I agree with the conclusion of mild occlusive arterial disease. Therefore it may be assumed that the pain that she has is neurologic. She is currently on gabapentin 100 mg 3 times a day and does not believe that it helps. I recommended to increase the gabapentin to 300 mg 3 times a day and discussed the potential side effects. I would like her to follow-up with either her neurologist and/or PCP regarding long-term maintenance of this medication and any other further dose changes.She will follow-up with me in 2 months for her Achilles no new x-rays are necessary Progress Notes * Anita VANCEDOB: 8 (54 yo F)Acc No.[id number]:03/28/2024 Follow Up Patient: Anita IBANEZ Provider: Rad Gentile DPM, MS :1970 A ge:54 Y S ex:Female Date:03/28/2024 Address:[address] [place] [address], [id number] Pcp:Services Family Health Check In:08:36 AM ESTCheck O ut:09:11 AM EST Subjective: * Chief Complaints: * A BI review * HPI: G eneral: Patient returns to office today for PEG study review. Patient states she is in alot of pain today. Rating her pain 6/10. Shes states she is still having tingling over the top of her left foot. She also had has tingling pain over the right foot but not as severe. She relates that the pain is exacerbated with elevation and at night which prevents her from getting a full night of sleep. She is normal shoes today. Minimal swelling noted, no bruising to foot today. She relates her right heel is doing better but still has pain and stiffness especially when dorsiflexing the foot. She is happy overall with progress on this. * Active Problem List M25.572 Pain in left ankle a nd joints of left foot Modified On:12/16/2023/U Status:confirmed M25.571 Pain in right ankle and joints of right foot Modified On:12/16/2023U Status:confirmed M14.672 Charcot's joint, lef t ankle and foot Modified On:12/16/2023U Status:confirmed S92.032A Displaced avulsion f racture of tuberosity of left calcaneus, initial encounter for closed fracture Modified On:12/16/2023/U Status:confirmed E11.42 Type 2 diabetes casimiro itus with diabetic polyneuropathy Modified On:12/16/2023U Status:confirmed L89.891 Pressure ulcer of ot her site, stage 1 Modified On:12/30/2023/U Status:confirmed L97.412 Non-pressure chronic ulcer of right heel and midfoot with fat layer exposed Modified On:12/30/2023W/U Status:confirmed I73.9 Peripheral vascular disease, unspecified Modified On:03/13/2024W/U Status:confirmed * Medical History: * Surgical History: R ight knee replacement Left knee replacement * Hospitalization/Major Diagno stic Procedure: N o Hospitalization History. * Family History: N o Family History documented.. * Social History: T obacco Use: T obacco Control (Standard) T obacco use: N onsmoker * Medications: T akingAmmonium Lactate 12 % Cream 1 application Externally Twice a day Gabapentin 100 MG Capsule 1 capsule Orally Once a day Taking Ammonium Lactate 12 % Cream 1 application Externally Twice a day Taking Gabapentin 100 MG Capsule 1 capsule Orally Once a day * Allergies: P enicillinno[Allergies Verified] Objective: * Vitals: H t: 65 in, Temp:97.1F, HR:74/min, Pain scale:81-10, Oxygen sat %:96%, Ht-cm: 165.1 cm. * Examination: P odiatry Examination: SKIN: s kin intact, n o sign of infection. MUSCULOSKELETAL: M ild tenderness on palpation to the left Achilles tendon. No skin tenting. Muscle strength on plantarflexion is 5 -/5 on the left and 5/5 on the right. Reducible lesser toe contractures. NEUROLOGICAL: l ight touch sensation intact, n egative tinel's sign. Protective sensation is diminished to the forefoot and toes. VASCULAR: F aintly palpable pedal pulses. Capillary refill to the toes is brisk. Absent digital hair. Assessment: * Assessment: 1. C harcot's joint, left ankle and foot - M14.672 (Primary) 2 . D isplaced avulsion fracture of tuberosity of left calcaneus, initial encounter for closed fracture - S92.032A? 3. T ype 2 diabetes mellitus with diabetic polyneuropathy - E11.42 4. P eripheral vascular disease, unspecified - I73.9 Plan: * Treatment: 2. T ype 2 diabetes mellitus with diabetic polyneuropathy Start Gabapentin Capsule, 300 MG, 1 capsule, Orally, three times a day, 30 days, 90 Capsule, Refills 1. * Procedure Codes: * * Sign off status: Completed Visit Status: C HK (Check Out) true * Provider: Rad Gentile DPM, MS Date: 05/29/2023 Generated for Jacki gallo/Saloni/Georgiaitting on: 0 10/10/2024 02:56 PM EDT History and Physical Notes * HPI (History of Present Illness) Category Sub-Category Detail Notes Category Not es General Patient returns to office today for PEG study review. Patient states she is in alot of pain today. Rating her pain 6/10. Shes states she is still having tingling over the top of her left foot. She also had has tingling pain over the right foot but not as severe. She relates that the pain is exacerbated with elevation and at night which prevents her from getting a full night of sleep. She is normal shoes today. Minimal swelling noted, no bruising to foot today. She relates her right heel is doing better but still has pain and stiffness especially when dorsiflexing the foot. She is happy overall with progress on this. Examination Category Sub-Category Detail Notes Category Not es Podiatry Examination SKIN: skin intact, no sign of infection MUSCULOSKELETAL: Mild tenderness on p alpation to the left Achilles tendon. No skin tenting. Muscle strength on plantarflexion is 5 -/5 on the left and 5/5 on the right. Reducible lesser toe contractures NEUROLOGICAL: light touch sensatio n intact, negative tinel's sign. Protective sensation is diminished to the forefoot and toes VASCULAR: Faintly palpable ped al pulses. Capillary refill to the toes is brisk. Absent digital hair
--- OUTSIDE RECORDS SUMMARY | 2024-06-05 09:15 | XMS_ITS ---
Author Organization The [facility] in [place] Address [address] [place] [address] Care Team Providers Care Workers Compensation Claims Assistant Name Role Phone Nahid HAMM, Mimi Primary Care Provider Jun Fair Unavailable [phone] REASON FOR VISIT rt ankle pain/ swollen Encounters Encounter Location Date Provider Diagnosis [facility] (PODIATRY) [address] [place] [address] [place] [address] 06/05/2024 Jun Gentile Pain in right ankle [...] Notes * VANCEAnitaDOB: [birth year] (54 yo F)Acc No.[id number]:06/05/2024 UNLOCKED PROGRESS NOTE Follow Up Patient: Anita IBANEZ Provider: Rad Gentile DPM MS :1970 A ge:54 Y S ex:Female Date:06/05/2024 [facility] [facility] [id number] Pcp:Mimi Whitfield NP Subjective: * Chief Complaints: * 1 . Rt ankle pain/ swollen. * Medical History: Objective: * Vitals: Assessment: * Assessment: 1. P ain in right ankle and joints of right foot - M25.571 Plan: * Treatment: * * Electronic signature of Chad Gentile DPM on 10/10/2024 at 02:56 PM EDT Sign off status: Pending Visit Status: C ANC (Cancelled) * Provider: Rad Gentile DPM, MS Date: 0 06/05/2024 Generated for Jacki gallo/Saloni/Pippa on: 0 10/10/2024 02:56 PM EDT
--- OUTSIDE RECORDS SUMMARY | 2024-06-11 06:00 | XMS_ITS ---
Author Organization [facility] in [place] Address [address] [place] [address] Care Team Providers Care Relations Manager Name Role Phone Mimi Whitfield NP Primary Care Provider Yonny Bee Unavailable [phone] REASON FOR VISIT peer to peer Problems Problem Type SNOMED Code ICD Code Onset Dates Problem Status W/U Status Risk Notes Problem Culture positive for methicillin resistant Staphylococcus aureus (982272022) MRSA (methicillin resistant staph aureus) culture positive (Z22.322) Active confirmed Problem Sepsis (A41.9) Active confirmed Vital Signs Height 65 in 06/11/2024 Encounters Encounter Location Date Provider Diagnosis [facility] [address] [facility] [place] [address] 06/11/2024 Yonny Quinn Sepsis A41.9 and MRS A (methicillin resistant staph aureus) culture positive Z22.322 Assessments Encounter Date Diagnosis (ICD Code) Assessment Notes Treatment Notes Treatment Clinical Notes Section Notes 06/11/2024 Sepsis (ICD-10 - A41.9) 06/11/2024 MRSA (methicillin resistant staph aureus) culture positive (ICD-10 - Z22.322) Plan Of Treatment No Information Progress Notes * Anita VANCEDOB: [birth year] (54 yo F)Acc No.[id number]:06/11/2024 Progress Note Patient: Anita IBANEZ Provider: Tika Quinn ([facility])MD :1970 A ge:54 Y S ex:Female Date:06/11/2024 [address] [id number] Pcp:[facility] Check In:10:02 AM EST [...] RR (Check-In) true * Provider: Tika Quinn ([facility])MD Date: 0 06/11/2024 Generated for Jacki gallo/Saloni/Georgiaitting on: 0 10/10/2024 02:56 PM EDT History and Physical Notes * HPI (History of Present Illness) Category Sub-Category Detail Notes Category Not es General 15plus minute d ariella review ing admission criteria and need for inpatient status due to MRSA positive Cellulitis of foot - need for prolonged IV AB
--- OUTSIDE RECORDS SUMMARY | 2024-09-06 05:30 | XMS_ITS ---
Author Organization [facility] es Address [address] [place] [address] Care Team Providers Care Golf [employer] Maker Name Role Phone Mamadou Chang Primary Care Provider REASON FOR VISIT est care Encounters Encounter Location Date Provider Diagnosis [facility] [address] [place] [place] [address] 09/06/2024 Mamadou Chang Plan Of Treatment No Information Progress Notes * GEETA VANCEDOB: [birth year] (54 yo F)Acc No.[id number]:09/06/2024 Progress Notes Patient: Kaylin GEETA PLASCENCIA Provider: Kaylin Chang :1970 A ge:54 Y S ex:Female Date:09/06/2024 [address] [facility] [id number] Subjective: * Chief Complaints: * 1 . Est care. * Medical History: Objective: * Vitals: Assessment: Plan: * Treatment: * Images: * Electronic signature of Debo Chang DO on 10/10/2024 at 02:56 PM EDT Sign off status: Pending * Provider: Kaylin Chang Date: 0 09/06/2024 Generated for Jacki gallo/Saloni/Pippa on: 0 10/10/2024 02:56 PM EDT
--- OUTSIDE RECORDS SUMMARY | 2024-09-20 05:30 | XMS_ITS ---
Author Organization [facility] es Address [address] [place] [address] Care Team Providers Care Training And Development Officer Name Role Phone Mamadou Chang Primary Care Provider REASON FOR VISIT EST CARE-NEW TO YOU Encounters Encounter Location Date Provider Diagnosis [facility] [address] [place] [facility] [address] 09/20/2024 Mamadou Chang Plan Of Treatment No Information Progress Notes * GEETA VANCEDOB: [birth year] (54 yo F)Acc No.[id number]:09/20/2024 Progress Notes Patient: Kaylin FEITRICIAGEETA Provider: Kaylin Chang :1970 A ge:54 Y S ex:Female Date:09/20/2024 Address:[address] [facility] [place], [id number] Subjective: * Chief Complaints: * 1 . EST CARE-NEW TO YOU. * Medical History: Objective: * Vitals: Assessment: Plan: * Treatment: * Images: * Electronic signature of Debo Chang DO on 10/10/2024 at 02:56 PM EDT Sign off status: Pending * Provider: Kaylin Chang Date: 0 09/20/2024 Generated for Jacki gallo/Saloni/Pippa on: 0 10/10/2024 02:56 PM EDT
--- OUTSIDE RECORDS SUMMARY | 2024-10-10 14:56 | XMS_ITS | Patient Health Record ---
Author Organization [employer] [facility] Address [address] [place] [address] Care Team Providers Care Hardware Installation Coordinator Name Role Phone Bernardo Mamadou Primary Care Provider Elizabeth Alvarado Unavailable [phone] Maye uBrger Unavailable Zuly Kolb Unavailable [phone] Allergies Allergen (clinical drug ingredient) Drug/Non Drug Allergy documented on EMR Reaction Allergy Type Onset Date Status penicillamine Penicillamine hives Drug Allergy Active Results Component Value Reference Range Notes Marquita Reviewed date:01/23/2024 02:44:17 PM Interpretation:NEG Performing Lab: Notes/Report: NEG Impression NEG Hemoglobin A1c Reviewed date:06/20/2024 11:11:42 AM Interpretation:7.1 Performing Lab: Notes/Report: 7.1 Hemoglobin A1c 7.1 5 - 7.9 % Hemoglobin A1c Reviewed date:01/30/2024 02:55:32 PM Interpretation:6.9 Performing Lab: Notes/Report: 6.9 Hemoglobin A1c 6.9 5 - 7.9 % Reason For Referral No Information Medications Medication [...] OLDER Unknown 03/05/2016 Administered was given at [facility] Social History Tobacco Use: Social History [...] 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 Stress is when someone feels tense, nervous, anxious, or cant sleep at night because their mind is troubled Somewhat In the past year have you sp ent more than 2 nights in a row in a snf, longterm, fci center, or juvenile correctional facility? No Are [...] Answer Notes Tobacco use: Nonsmoker Section Notes: 08/27/15: DENIES TOBACCO, ETOH AND IDU 04/04/15: DENIES TOBACCO, ETHO AND ILLEGAL DRUG USE. 01-10-12: DENIES TOBACCO. DENIES ETOH. DENIES ILLEGAL DRUG USE. neg etoh and tobacco. works at [employer]. neg etoh and tobacco. works at [employer]. neg etoh and tobacco. works at [employer]. neg etoh and tobacco. works at [employer]. neg etoh and tobacco. works at [employer]. 01-10-12: DENIES TOBACCO. DEN IES ETOH. DENIES [...] Problem Status W/U Status Risk Notes Problem 949403766 Morbid (severe) obesity due to excess calories (E66.01) Active confirmed Problem Osteoarthritis of knee (408693565) Osteoarthritis of knee, unspecified (M17.9) Active confirmed Problem 26649555 Postmenopausal bleeding (N95.0) Active confirmed Problem 97858221 Essential hypertension (I10) Active confirmed Problem Mood swings (67462568) Mood swings (F39) Active confirmed Problem 318677160 Depression with anxiety (F41.8) Active confirmed Problem Restless legs (50484230) Restless leg (G25.81) Active confirmed Problem [id number] Arm paresthesi a, left (R20.2) Active confirmed Problem 537881459 Peripheral vascular disease (I73.9) Active confirmed Problem Female urinary stress incontinence (41733119) Stress incontinence in female (N39.3) Active confirmed Problem 37117963 Dysphagia, unspecified type (R13.10) Active confirmed Problem Moderate persistent asthma (667864796) Moderate persistent asthma (J45.40) Active confirmed Problem 305687897 Type 2 diabetes mellitus without complication, without long-term current use of insulin (E11.9) Active confirmed Problem 030409019 Abnormal vaginal bleeding (N93.9) Active confirmed Vital Signs Heart Rate 71 /min 06/20/2024 Temperature 98.2 degrees Fahrenheit 06/20/2024 Respiratory Rate 20 /min 06/20/2024 Oximetry 96 % 06/20/2024 Blood pressure diastolic 68 mm Hg 06/20/2024 Height 65 in 06/20/2024 Blood pressure systolic 115 mm Hg 06/20/2024 Weight 268.5 lbs 06/20/2024 BMI 44.68 kg/m2 06/20/2024 Encounters Encounter Location Date Provider Diagnosis [facility] [address] [place] [address] 11/01/2023 Elizabeth Myerholtz Essential hypertension I10 and Mood swings F39 [facility] [address] [place] [address] 11/01/2023 Elizabeth Myerholtz Essential hypertension I10 and Mood swings 9 [facility] [address] [place] [address] 11/14/2023 Maye Burger [facility] [address] [place] [address] 12/26/2023 Maye Burger [place] [address] [place] [address] 01/23/2024 Maye Burger [place] [address] [place] [address] 04/30/2024 Maye Burger [address] [place] [address] 05/14/2024 Maye Burger Stress incontinence in female N39.3 [facility] [address] [place] [address] 06/08/2024 Maye Burger [facility] [address] [place] [address] 08/23/2024 Mamadou [place] [address] [facility] [place] [address] 09/26/2024 Mamadou [place] [address] [place] [address] 11/10/2023 Maye Burger Moderate persistent asthma J45.40 ; Essential hypertension I10 ; Restless leg G25.81 ; Mood swings F39 ; Stress incontinence in female N39.3 and Type 2 diabetes mellitus without complication, without long-term current use of insulin E11.9 [facility] [address] [place] [address] 01/30/2024 Maye Burger Type 2 diabetes mellitus without complication, without long-term current use of insulin E11.9 ; Restless leg G25.81 and Stress incontinence in female N39.3 [facility] [address] [place] [address] 06/20/2024 Maye Burger Restless leg G25.81 ; Type 2 diabetes mellitus without complication, without long-term current use of insulin E11.9 ; Moderate persistent asthma J45.40 ; Mood swings F39 ; Stress incontinence in female N39.3 ; Breast cancer screening by mammogram Z12.31 and Wound of foot S91.309A Assessments Encounter Date Diagnosis (ICD Code) Assessment [...] lots of fluids to hydrate and notify [facility] of any s/e or signs of inf. 06/20/2024 Breast cancer screening by mammogram (ICD-10 - Z12.31) Due for mammogram ordered for pt. 06/20/2024 Wound of foot (ICD-10 - S91.309A) Seeing podiatry for care of foot and has an appt on Tuesday. Declines HOBBER to examine foot. Dressing dry and intact. Completing antibiotics. Education on good glycemic control to help with healing. Plan Of Treatment No Information Insurance Providers Payer Name Payer Address Payer Phone Subscriber Number Group Number Insured Name Patient Relationship to Insured Coverage Start Date Coverage End Date [facility] [address] [place] [address] [id number] [employer] VANCE Self - patient is the insured 1 Secondary [facility] [address] [place] [address] [id number] GEETA VANCE Self - patient is the insured 4 [employer] [facility] [address] [place] [phone] [id number] GEETA VANCE Self - patient is the insured 4 B MEDICAID SEC TO [facility] [address] [place] [address] [id number] GEETA VANCE Self - patient is the insured 0 MEDICARE [address] [place] [address] [id number] GEETA VANCE Self - patient is the insured 0 [facility] [address] [place] [address] [id number] GEETA VANCE Self - patient is the insured 8 1 [employer] MEDICARE ADVANTAGE [address] [place] [address] [id number] GEETA VANCE Self - patient is the insured 1 1 DENTAL [facility] DUAL [address] [address] [place] [address] [id number] GEETA VANCE Self - patient is the [...]
--- OUTSIDE RECORDS SUMMARY | 2024-10-10 14:56 | XMS_ITS | Clinical Summary ---
Author Organization [facility] Address [address] [place] [address] Care Team Providers Care Hospitality Recruiter Name Role Phone Unallocated, Noms Provider Primary [...] Ended) 2024 03/16/20 16, 03/05/2015 Insurance MEDICARE [facility] Care Teams Hospitality Recruiter Relationship Specialty Start Date End Date Unallocated, Noms Provider, [address] [place], [place] [id number] PCP - General 10/14/22
--- OUTSIDE RECORDS SUMMARY | 2024-10-10 14:56 | XMS_ITS | Patient Health Record ---
Author Organization The [facility] in [place] Address [address] [place] [address] Care Team Providers Care Transportation Department Head Name Role Phone Mimi Whitfield NP Primary Care Provider UnavailHilda Call Unavailable [phone] Olga Vallejo Unavailable [phone] Yonny Quinn Unavailable [phone] Allergies Allergen (clinical drug ingredient) Drug/Non Drug Allergy documented on EMR Reaction Allergy Type Onset Date Status Penicillin Unknown Drug Allergy Active Results Component Value Reference Range Notes XR ankle DANISH min 3V Reviewed date:06/04/2024 01:00:24 PM Interpretation: Performing Lab: Notes/Report: Source Facility: [place] [id number] XRay Report Signed Patient: GEETA VANCE MR#: [id number] : 1970 Acct:[id number] Age/Sex: 53 / F ADM Date: 12/30/23 Loc: EC Attending Dr: Hilda Gentile D.P.M. Ordering Physician: Hilda Gentile D.P.M. Date of Service: 12/30/23 Procedure(s): XR ankle DANISH min 3V Accession Number(s): [id number] cc: Hilda Gentile D.P.M.; Physician,Non-Staff [place] [address] Patient Name: GEETA VANCE MRN: [id number] date: 1970 Sex: F Assigned Patient Location: EC Current Patient Location: Accession/Order Number: [id number] Exam Date: 12/30/2023 09:00 Report Date: 12/31/2023 [...] Signed By: 12/31/23 0750 DD/ 0747 TD/TT: Supervisor Coating: [place] [address] XRay Report Signed Patient: ROCIO VANCE MR#: [id number] : 1970 Acct:[id number] Age/Sex: 53 / F ADM Date: 12/30/23 Loc: EC Attending Dr: Hilda Gentile D.P.M. Ordering Physician: Hilda Gentile D.P.M. Date of Service: 12/30/23 Procedure(s): XR ank le DANISH min 3V Accession Number(s): [id number] cc: Hilda Gentile D.P.M.; Physician,Non-Staff MJuan Manuel [facility] [place] [address] Patient Name: GEETA VANCE MRN: [id number] date: 1970 Sex: F Assigned Patient Location: Current Patient Location: Accession/Order Numb er: [id number] Exam Date: 12/30/2023 09:00 Report Date: 12/31/2023 [...] Signed By: 12/31/23 0750 DD/ 0747 TD/TT: Supervisor Coating: XR foot DANISH min 3V Reviewed date:06/04/2024 01:00:24 PM Interpretation: Performing Lab: Notes/Report: Source Facility: [facility] [place] [address] [place] [address] XRay Report Signed Patient: GEETA VANCE MR#: [id number] : 1970 Acct:[id number] Age/Sex: 53 / F ADM Date: 12/30/23 Loc: EC Attending Dr: Hilda Gentile D.P.M. Ordering Physician: Hilda Gentile D.P.M. Date of Service: 12/30/23 Procedure(s): XR foot DANISH min 3V Accession Number(s): [id number] cc: Hilda Gentile D.P.M.; Physician,Non-Staff [place] [address] Patient Name: GEETA VANCE MRN: [id number] date: 1970 Sex: F Assigned Patient Location: Current Patient Location: Accession/Order Number: [id number] Exam Date: 12/30/2023 09:00 Report Date: 12/31/2023 [...] Signed By: 12/31/23 0750 DD/ 0747 TD/TT: Supervisor Coating: The [address] [address] XRay Report Signed Patient: ROCIO VANCE MR#: [id number] : 1970 Acct:[id number] Age/Sex: 53 / F ADM Date: 12/30/23 Loc: EC Attending Dr: Hilda Gentile D.P.M. Ordering Physician: Hilda Gentile D.P.M. Date of Service: 12/30/23 Procedure(s): XR fei t DANISH min 3V Accession Number(s): [id number] cc: Hilda Gentile D.P.M.; Physician,Non-Staff [facility] [place] [id number] Patient Name: GEETA VANCE MRN: [id number] date: 1970 Sex: F Assigned Patient Location: Current Patient Location: Accession/Order Numb er: [id number] Exam Date: 12/30/2023 09:00 Report Date: 12/31/2023 [...] Signed By: 12/31/23 0750 DD/ 0747 TD/TT: Supervisor Coating: XR calcaneus LT min 2V Reviewed date:06/04/2024 01:00:24 PM Interpretation: Performing Lab: Notes/Report: Source Facility: [place] [address] XRay Report Signed Patient: GEETA VANCE MR#: [id number] : 1970 Acct:[id number] Age/Sex: 53 / F ADM Date: 01/06/24 Loc: EC Attending Dr: Hilda Gentile D.P.M. Ordering Physician: Hilda Gentile D.P.M. Date of Service: 01/06/24 Procedure(s): XR calcaneus LT min 2V Accession Number(s): [id number] cc: Hilda Gentile D.P.M.; Physician,Non-Staff [place] [address] Patient Name: GEETA VANCE MRN: [facility]:[id number] date: 1970 Sex: F Assigned Patient Location: Current Patient Location: Accession/Order Number: [id number] Exam Date: 01/06/2024 08:40 Report Date: 01/07/2024 [...] M.D. Signed By: 01/07/24917 DD/ 3 TD/TT: Supervisor Coating: [place] [address] XRay Report Signed Patient: ROCIO VANCE MR#: [id number] : 1970 Acct:[id number] Age/Sex: 53 / F ADM Date: 01/06/24 Loc: EC Attending Dr: Hilda Gentile D.P.M. Ordering Physician: Hilda Gentile D.P.M. Date of Service: 01/06/24 Procedure(s): XR calcaneus LT min 2V Accession Number(s): [id number] cc: Hilda Gentile D.P.M.; Physician,Non-Staff [facility] [place] [address] Patient Name: GEETA VANCE MRN: [id number] date: 1970 Sex: F Assigned Patient Location: Current Patient Location: Accession/Order Numb er: [id number] Exam Date: 01/06/2024 08:40 Report Date: 01/07/2024 [...] M.D. Signed By: 01/07/24917 DD/ 3 TD/TT: Supervisor Coating: VC SEGMENTAL PRESSURES Reviewed date:06/04/2024 01:00:24 PM Interpretation: Performing Lab: Notes/Report: Source Facility: [place] [address] [place] [address] Vein Report Signed Patient: GEETA VANCE MR#: [id number] : 1970 Acct:[id number] Age/Sex: 54 / F ADM Date: 03/20/24 Loc: VC Attending Dr: Hilda Gentile D.P.M. Ordering Physician: Hilda Gentile D.P.M. Date of Service: 03/20/24 Procedure(s): VC SEGMENTAL PRESSURES Accession Number(s): [id number] cc: Hilda Gentile D.P.M.; Physician,Non-Staff [facility] [place] [address] Patient Name: GEETA VANCE MRN: [id number] date: 1970 Sex: F Assigned Patient Location: Current Patient Location: Accession/Order Number: [id number] Exam Date: 03/20/2024 14:44 Report Date: 03/26/2024 07:54 At the request of: HILDA GENTILE Procedure: VC SEGMENTAL PRESSURES EXAM: VC SEGMENTAL PRESSURES HISTORY: R09.89 COMPARISON: None. FINDINGS: Segmental pressures presented as follows (right, left) in mmHg. Brachial: 154, 164 Lower thigh: 219, 214 Calf: 178, 204 DPA: 105, 79 DIRECTOR TRADING: 158, 118 1st Toe: 211, 200 PEG: [...] M.D. Signed By: 03/26/24755 DD/ 3 TD/TT: Supervisor Coating: [place] [address] Vein Report Signed Patient: ROCIO VANCE MR#: [id number] : 1970 Acct:[id number] Age/Sex: 54 / F ADM Date: 03/20/24 Loc: VC Attending Dr: Hilda Gentile D.P.M. Ordering Physician: Hilda Gentile D.P.M. Date of Service: 03/20/24 Procedure(s): VC SEGMENTAL PRESSURES Accession Number(s): [id number] cc: Hilda Gentile D.P.M.; Physician,Non-Staff [facility] [place] [address] Patient Name: GEETA VANCE MRN: [id number] date: 1970 Sex: F Assigned Patient Location: Current Patient Location: Accession/Order Numb er: [id number] Exam Date: 14:44 Report Date: 03/26/2024 07:54 At the request of: HILDA GENTILE Procedure: VC SEGMEN SELAM PRESSURES EXAM: VC SEGMENTAL PRESSURES HISTORY: R09.89 COMPARISON: None. FINDINGS: Segmental pressures presented as follows (right, left) in mmHg. Brachial: 154, 164 Lower thigh: 219, 214 Calf: 178, 204 DPA: 105, 79 DIRECTOR TRADING: 158, 118 1st Toe: 211, 200 PEG: [...] Dictated By: Farhad Cagle M.D. Signed By: 03/26/24755 DD/ 0754 TD/TT: Supervisor Coating: CT foot RT w con Reviewed date:06/03/2024 11:04:29 AM Interpretation: Performing Lab: Notes/Report: Source Facility: [place] [address] CT Scan Report Signed Patient: GEETA VANCE MR#: [id number] : 1970 Acct:[id number] Age/Sex: 54 / F ADM Date: 06/02/24 Loc: ICU 276-[address]: Tasha Quinn M.D. Ordering Physician: Tasha Quinn M.D. Date of Service: 06/02/24 Procedure(s): CT foot RT w con Accession Number(s): [id number] cc: FAMILY,HEALTH SER [facility] [place] [address] Patient Name: GEETA VANCE MRN: [id number] date: 1970 Sex: F Assigned Patient Location: ICU Current Patient Location: ICU Accession/Order Number: [id number] Exam Date: 06/02/2024 16:38 Report Date: 06/02/2024 [...] evidence of osteomyelitis. No fractures. There is elpw-xc-mtnoxwfj degenerative ankle mortise narrowing and osteoarthritis. Subtalar [...] D.O. Signed By: 06/02/241948 DD/ 45 TD/TT: Supervisor Coating: [place] [address] CT Scan Report Signed Patient: ROCIO VANCE MR#: [id number] : 1970 Acct:[id number] Age/Sex: 54 / F ADM Date: 06/02/24 Loc: ICU 276-[address]: Sole Quinn M.D. Ordering Physician: Tasha Quinn M.D. Date of Service: 06/02/24 Procedure(s): CT fei t RT w con Accession Number(s): [id number] cc: FAMILY,HEALTH SER [place] [address] [place] [address] Patient Name: GEETA VANCE MRN: [id number] date: 1970 Sex: F Assigned Patient Location: ICU Current Patient Loca tion: ICU Accession/Order Numb er: [id number] Exam Date: 06/02/2024 16:38 Report Date: 06/02/2024 [...] D.O. Signed By: 06/02/241948 DD/ 45 TD/TT: Supervisor Coating: Aerobic Culture (Not yet rev iewed by [...] Antibiotic Interpretation MARIA ELENA Status Aerobic Culture *Penicillinase-stabl e penicillins, such [...] MARIA ELENA Status Aerobic Culture [facility] Organism: Staphylococcus aureus : O:BETAGC Isolated O:STAAUR Isolated Organism: 1.2 Antibiotic Interpretation MARIA ELENA Status Aerobic Culture [address] [place], [place] [id number] Aerobic Culture Organism: Staphylococcus aureus : O:BETAGC Isolated O:STAAUR Isolated Organism: 1.2 Antibiotic Interpretation MARIA ELENA Status Aerobic Culture Spring Former Machine: Torey Duncan PhD, Phone: [phone] Aerobic Culture Organism: Staphylococcus aureus : O:BETAGC Isolated O:STAAUR Isolated Organism: 1.2 Antibiotic Interpretation MARIA ELENA Status Aerobic Culture See Below For Report Aerobic Culture Organism: Staphylococcus aureus : O:BETAGC Isolated O:STAAUR Isolated Organism: 1.2 Antibiotic Interpretation MARIA ELENA Status Aerobic Culture Ciprofloxacin S F Aerobic [...] Organism: 1.2 Antibiotic Interpretation MARIA ELENA Status Performing Lab: see note LC - [facility] LB SEE REPORT - [employer] Firer Id information not found for OBX-specific photo producer legend CBC AUTO DIFF Reviewed date:06/03/2024 11:04:29 AM Interpretation: Performing Lab: Notes/Report: [facility] , White Blood Count 13.1 4.0-11.0 10 [...] 3/uL Performing Lab: see note ML - [facility] LB PROF CHEM 8 (BAS METB) Reviewed date:06/03/2024 11:04:29 AM Interpretation: Performing Lab: Notes/Report: [facility] , Sodium 135 136-145 mmol/L Potassium 4.1 3.5-5.1 mmol/L Chloride 97 98-107 mmol/L Carbon Dioxide 28.7 21.0-32.0 mmol/L Anion Gap 13.4 Glucose 114 74-106 mg/dL Blood Urea Nitrogen 22.0 7.0-18.0 mg/dL Creatinine 0.88 0.55-1.02 mg/dL Estimated GFR ( Eneida >60 >=60 mL/min/1.73m 2 Estimated GFR (Non- Charley >60 >=60 mL/min/1.73m 2 BUN Creatinine Ratio 25.0 Calcium 9.4 8.5-10.1 mg/dL Performing Lab: see note ML - [facility] LB CBC AUTO DIFF Reviewed date:06/05/2024 12:41:43 PM Interpretation: Performing Lab: Notes/Report: [facility] , White Blood Count 9.1 4.0-11.0 10 [...] 3/uL Performing Lab: see note ML - [facility] LB CRP Reviewed date:06/05/2024 12:41:43 PM Interpretation: Performing Lab: Notes/Report: [facility] , C Reactive Protein 12.54 <=0.50 mg/dL Performing Lab: see note ML - [facility] LB PROF CHEM 8 (BAS METB) Reviewed date:06/05/2024 12:41:43 PM Interpretation: Performing Lab: Notes/Report: [facility] , Sodium 135 136-145 mmol/L Potassium 4.1 [...] mg/dL Performing Lab: see note ML - [facility] LB CBC AUTO DIFF Reviewed date:06/06/2024 09:18:06 PM Interpretation: Performing Lab: Notes/Report: [facility] , White Blood Count 9.3 4.0-11.0 10 [...] Performing Lab: see note ML - [facility] LB CRP Reviewed date:06/06/2024 09:18:06 PM Interpretation: Performing Lab: Notes/Report: [facility] , C Reactive Protein 9.36 <=0.50 mg/dL Performing Lab: see note ML - [facility] LB PROF CHEM 8 (BAS METB) Reviewed date:06/06/2024 09:18:06 PM Interpretation: Performing Lab: Notes/Report: [facility] , Sodium 135 136-145 mmol/L Potassium 4.3 3.5-5.1 mmol/L Chloride 99 98-107 mmol/L Carbon Dioxide 28.4 21.0-32.0 mmol/L Anion Gap 11.9 Glucose 123 74-106 mg/dL Blood Urea Nitrogen 23.0 7.0-18.0 mg/dL Creatinine 0.84 0.55-1.02 mg/dL Estimated GFR ( Eneida >60 >=60 mL/min/1.73m 2 Estimated GFR (Non- Charley >60 >=60 mL/min/1.73m 2 BUN Creatinine Ratio 27.4 Calcium 9.3 8.5-10.1 mg/dL Performing Lab: see note ML - [facility] LB Aerobic Culture (Not yet rev [...] Clindamycin S F Aerobic Culture Performed at: [facility] Aerobic Culture Organism: Staphylococcus aureus : O:BETAGC [...] F Clindamycin Clindamycin S F Aerobic Culture [address] [place], [place] [address] Aerobic Culture Organism: Staphylococcus aureus : O:BETAGC [...] F Clindamycin Clindamycin S F Aerobic Culture Spring Former Machine: Torey Duncan PhD, Phone: [phone] Aerobic Culture Organism: Staphylococcus aureus : O:BETAGC [...] Culture Organism: Staphylococcus aureus : O:BETAGC Isolated O:[facility] Isolated Organism: 2.2 Antibiotic Interpretation MARIA ELENA [...] LC - [facility] LB SEE REPORT - [employer]r Id information not found for OBX-specific photo producer legend Anaerobic Culture (Not yet r eviewed by provider) Interpretation: Performing Lab: Notes/Report: [facility] , Anaerobic Culture See Below For Report Anaerobic Culture O:PREVSP Isolated Anaerobic Culture Specimen has been received and testing has been initiated. Anaerobic Culture O:PREVSP Isolated Anaerobic Culture Organism: Prevotella species : Anaerobic Culture O:PREVSP Isolated Anaerobic Culture *ABNORMAL* Anaerobic Culture O:PREVSP Isolated Anaerobic Culture Studies at [facility] have confirmed the Anaerobic Culture O:PREVSP Isolated Anaerobic Culture observations of othe rs who have demonstrated that Anaerobic Culture O:PREVSP [...] Culture O:PREVSP Isolated Performing Lab: see note - [facility] LB XR ankle LT min 3V Reviewed date:06/04/2024 01:00:24 PM Interpretation: Performing Lab: Notes/Report: Source Facility: [place] [address] XRay Report Signed Patient: GEETA VANCE MR#: [id number] : 1970 Acct:[id number] Age/Sex: 53 / F ADM Date: 01/25/24 Loc: EC Attending Dr: Hilda Gentile D.P.M. Ordering Physician: Hilda Gentile D.P.M. Date of Service: 01/25/24 Procedure(s): XR ankle LT min 3V Accession Number(s): [id number] cc: Hilda Gentile D.P.M.; Physician,Non-Staff M.DAntonia [facility] [place] [address] Patient Name: GEETA VANCE MRN: [id number] date: 1970 Sex: F Assigned Patient Location: Current Patient Location: Accession/Order Number: [id number] Exam Date: 01/25/2024 09:34 Report Date: 01/26/2024 [...] M.D. Signed By: 01/26/24940 DD/ 7 TD/TT: Supervisor Coating: [place] [address] XRay Report Signed Patient: ROCIO VANCE MR#: [id number] : 1970 Acct:[id number] Age/Sex: 53 / F ADM Date: 01/25/24 Loc: EC Attending Dr: Hilda Gentile D.P.M. Ordering Physician: Hilda Gentile D.P.M. Date of Service: 01/25/24 Procedure(s): XR ank le LT min 3V Accession Number(s): [id number] cc: Hilda Gentile D.P.M.; Physician,Non-Staff [employer] [facility] [place] [address] Patient Name: GEETA VANCE MRN: [id number] date: 1970 Sex: F Assigned Patient Location: Current Patient Location: Accession/Order Numb er: [id number] Exam Date: 09:34 Report Date: 01/26/2024 09:38 [...] M.D. Signed By: 01/26/24940 DD/ 7 TD/TT: Supervisor Coating: PROF LAURENCE Guzman ([facility]) Reviewed date:06/04/2024 01:00:24 PM Interpretation: Performing Lab: Notes/Report: [facility] , Sodium 137 136-145 mmol/L Potassium 3.6 [...] mg/dL Performing Lab: see note ML - [facility] LB CRP Reviewed date:06/04/2024 01:00:24 PM Interpretation: Performing Lab: Notes/Report: [facility] , C Reactive Protein 18.96 <=0.50 mg/dL Performing Lab: see note ML - [facility] LB CBC AUTO DIFF Reviewed date:06/04/2024 01:00:24 PM Interpretation: Performing Lab: Notes/Report: [facility] , White Blood Count 11.4 4.0-11.0 10 [...] 3/uL Performing Lab: see note ML - [facility] LB CRP Reviewed date:06/03/2024 11:04:29 AM Interpretation: Performing Lab: Notes/Report: [facility] , C Reactive Protein 28.73 <=0.50 mg/dL Performing Lab: see note ML - [facility] LB Reason For Referral Reason evaluation and treat ment -- see attached order Diagnosis 1 Displaced avulsion f racture of tuberosity of left calcaneus, initial encounter for closed fracture (S92.032A) Referral Organization [facility] ([facility]) Referring Provider First Name Hilda Referring Provider Last Name [facility] Referring Provider Speciality Podiatry Referred Provider [facility], Physical Therap y Referred Provider Specialty Physical Med icine and Rehabilitation General Notes Jacob Bolaños 05/2023 03:03:07 PM >PT is not in network with patient's secondary insurance. Called patient to let her know, left message. Referral Priority Routine Reason PEG/PVR Diagnosis 1 Charcot's joint, lef t ankle and foot (M14.672) Referral Organization [facility] ([facility]) Referring Provider First Name Hilda Referring Provider Last Name [facility] Referring Provider Speciality Podiatry Referred Provider Specialty [...] Problem Status W/U Status Risk Notes Problem 184890901 Peripheral vascular disease, unspecified (I73.9) Active confirmed Problem 418765980 Type 2 diabetes mellitus with diabetic polyneuropathy (E11.42) Active confirmed Problem Foot ulcer due to type 2 diabetes mellitus (7653188746429) Type 2 diabetes mellitus with foot ulcer (E11.621) Active confirmed Problem 324183838465264 Pressure ulcer o f other site, stage 1 (L89.891) Active confirmed Problem 38989047926227874 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) Active confirmed Problem 581845487 Charcot's joint, left ankle and foot (M14.672) Active confirmed Problem Arthralgia of the ankle and/or foot (609598654) Pain in right ankle and joints of right foot (M25.571) Active confirmed Problem Arthralgia of the ankle and/or foot (865352323) Pain in left ankle and joints of left foot (M25.572) Active confirmed Problem 815830322 Displaced avulsion fracture of tuberosity of left calcaneus, initial encounter for closed fracture (S92.032A) Active confirmed Problem Essential hypertension (42686901) Benign essential HTN (I10) Active confirmed Problem Neuropathy (351385322) Neuropathy (G62.9) Active confirmed Problem Leukocytosis (760090970) Leukocytosis (D72.829) Active confirmed Problem Sepsis (33342483) Sepsis (A41.9) Active confirm ed Problem Culture positive for methicillin resistant Staphylococcus aureus (435230618) MRSA (methicillin resistant staph aureus) culture positive (Z22.322) Active confirmed Problem Non-pressure chronic ulcer of right heel and midfoot with muscle involvement without evidence of necrosis (L97.415) Active confirmed Problem Chronic ulcer of right heel with fat layer exposed (L97.412) Active confirmed Problem Chronic ulcer of right foot (disorder) (31104731799608155) Chronic ulcer of right foot with fat layer exposed (L97.512) Active confirmed Vital Signs Heart Rate 74 /min 03/28/2024 Temperature 97.1 degrees Fahrenheit 03/28/2024 Respiratory Rate 18 /min 01/25/2024 Oximetry 96 % 03/28/2024 Height 65 in 06/11/2024 Weight 260 lbs 03/13/2024 BMI 43.26 kg/m2 03/13/2024 Encounters Encounter Location Date Provider Diagnosis [facility] (PODI[facility]) [address] [place] [address] [place] [address] 01/30/2024 [facility] [address] [place] [address] 06/11/2024 Yonny Hoy Sepsis A41.9 and MRS A (methicillin resistant staph aureus) culture positive Z22.322 [facility] (PODIATRY) [address] [place] [address] [place] [address] 12/16/2023 Hilda Gentile Charcot's joint, lef t ankle and foot M14.672 ; Displaced avulsion fracture of tuberosity of left calcaneus, initial encounter for closed fracture S92.032A ; Type 2 diabetes mellitus with diabetic polyneuropathy E11.42 ; Pain in left ankle and joints of left foot M25.572 and Pain in right ankle and joints of right foot M25.571 [facility] (PODI[facility]) [address] [place] [address] [place] [address] 12/20/2023 Hilda Gentile Pain in left ankle and joints of left foot M25.572 and Charcot's joint, left ankle and foot M14.672 [facility] (POD[facility]) [address] [place] [address] [place] [address] 12/27/2023 Olga Vallejo Charcot's joint, lef t ankle and foot M14.672 [facility] (POD[facility]) [address] [place] [address] [place] [address] 12/30/2023 Hilda Gentile Displaced avulsion fracture of [...] joints of right foot M25.571 [facility] ([facility]) [address] [place] [address] [place] [address] 01/06/2024 Hilda Gentile Displaced avulsion fracture of tuberosity of left calcaneus, initial encounter for closed fracture S92.032A ; Charcot's joint, left ankle and foot M14.672 and Pain in left ankle and joints of left foot M25.572 [facility] ([facility]OD[facility]) [address] [place] [address] [place] [address] 01/25/2024 Hilda Gentile Pain in left ankle and joints of left foot M25.572 ; Displaced avulsion fracture of tuberosity of left calcaneus, initial encounter for closed fracture S92.032A and Charcot's joint, left ankle and foot M14.672 [facility] ([facility]OD[facility]) [address] [place] [address] [place] [address] 02/15/2024 Hilda Gentile Displaced avulsion fracture of tuberosity of left calcaneus, initial encounter for closed fracture S92.032A [facility] ([facility]OD[facility]) [address] [place] [address] [place] [address] 03/13/2024 Hilda Gentile Charcot's joint, lef t ankle and foot M14.672 ; Peripheral vascular disease, unspecified I73.9 and Type 2 diabetes mellitus with diabetic polyneuropathy E11.42 [facility] ([facility]) [address] [place] [address] [place] [address] 03/28/2024 Hilda Gentile Charcot's joint, lef t [...] LT (3 views) * 03/13/2024 XR Foot LT (3 views) * 12/16/2023 XR Foot RT (3 views) * 12/16/2023 XR Ankle 3 Views Bilateral 12/30/2023 XR Foot 3 Views Bilateral 12/30/2023 Aerobic Culture 06/02/2024 Aerobic Culture 06/02/2024 Anaerobic Culture 06/02/2024 Insurance Providers Payer Name Payer Address Payer Phone Subscriber Number Group Number Insured Name Patient Relationship to Insured Coverage Start Date Coverage End Date [facility]IC[facility] [address] [address] [place] [address] [phone] [id number] OHDSNP Geeta Vance Self - patient is the insured 5 [employer] [place] [employer] [address] [facility] [place] [address] [id number] Geeta Vance Self - patient is the insured 4 [place]ID [place] 2ND INS [address] OFFICE OF [place], [place] [id number] Geeta Vance Self - patient is the insured Medical (General) History Medical History History ICD Code diabetes neuropathy asthma high blood pressure Surgical History Surgery Date(Month/Year) Left knee replacement Right knee replacement
== END 2024-10-10 14:54 | disposition home or self-care (01) ==
LOC: WC 14:53
PROVIDERS: Visit Provider Podiatrist Foot & Ankle Surgery
DX: E11.621 Type 2 diabetes mellitus with foot ulcer (principal); L97.415 Non-pressure chronic ulcer of right heel and midfoot with muscle involvement without evidence of necrosis
CPT/HCPCS: G0463

== ENCOUNTER 2024-10-30 09:06 | Outpatient (OUT) | payer MEDICARE, MEDICAID, SELFPAY ==
--- OUTSIDE RECORDS SUMMARY | 2024-10-30 09:08 | XMS_ITS | Clinical Summary ---
Author Organization [facility] Address [address] [place] [address] Care Team Providers Care [employer] Sales Supervisor Name Role Phone Unallocated, Noms Provider Primary [...] Screening 02/17/2023 FIT-DNA 02/17/2023 02/18/2020 Influenza Vaccine (#1) 2024 03/16/2016, 2014 Insurance MEDICARE [facility] Care Teams [employer] Sales Supervisor Relationship Specialty Start Date End Date Unallocated, Noms Provider, [address] [place], [place] [id number] PCP - General 10/14/22
== END 2024-10-30 09:07 | disposition home or self-care (01) ==
LOC: WC 09:06
PROVIDERS: Visit Provider Physician Assistant
DX: E11.621 Type 2 diabetes mellitus with foot ulcer (principal); L97.415 Non-pressure chronic ulcer of right heel and midfoot with muscle involvement without evidence of necrosis
CPT/HCPCS: 11043

== ENCOUNTER 2024-12-11 09:06 | Outpatient (OUT) | payer MEDICARE, MEDICAID, SELFPAY ==
--- OUTSIDE RECORDS SUMMARY | 2024-12-11 09:08 | XMS_ITS | Clinical Summary ---
Author Organization [facility] Address [address] [place] [address] Care Team Providers Care Wire Fence Builder Name Role Phone Unallocated, Noms Provider Primary [...] Vaccine (#1) 2024 03/16/2016, 2014 Insurance MEDICARE [facility] Care Teams Wire Fence Builder Relationship Specialty Start Date End Date Unallocated, Noms Provider, [address] [place], [place] [id number] PCP - General 10/14/22
--- OUTSIDE RECORDS SUMMARY | 2024-12-11 09:12 | XMS_ITS | CCD ---
Author Organization [facility] Care Team Providers Care Roving Department Supervisor Name Role Phone RHEA Alvarado Attending Provider [employer]visor [facility], Services Primary Care Provider RHEA Alvarado Primary Care Provide r CARLI Villeda Attending Provider RHEA Alvarado Primary Care Provide r CARLI Villeda Attending Provider [phone] Pending Provider Unavailable Unavailable Unavailable Unavailable Unavailable [...] Attending Provider DO Lorrie Baig Attending Provider [phone] RHEA Alvarado Primary Care Provide r Acosta Schafer Attending Provider RHEA Ramirez Attending Provider DO Lorrie Baig Referring Provider [phone] [place], [address] Acosta Tyson Attending Un [...] MARII Davila Attending Provider Tyler Jean Unavailable [phone] RHEA Alvarado Primary Care Provide r MARII Davila Attending Provider RHEA Alvarado Attending Provider RHEA Alvarado Attending Provider NO FAMILY, PHYSICIAN Primary Care Provider Unava ilable RHEA Alvarado Primary Care Provide r DO Lorrie Baig Referring Provider DO Krzysztof Salazar II Attending Provider [phone] Elizabeth Alvarado Primary Care Unavailab Lorrie Villalobos Referring Unavailable Krzysztof Salazar II Attending Unavaila ble Krzysztof Salazar II Admitting Unavaila ble Allergies Allergy Classification Reported Allergen(s) Allergy Type Date of Onset Reaction(s) Facility NSAIDs (1 source) Ibuprofen Drug Allergy 4 Unknown Reaction [facility] Penicillins (antibiotic) (2 sources) Penicillin Drug Allergy 4 hives [facility] (20 sources) Penicillins; Translations: [Penicillins] Allergy to substance 8 Anaphylaxis [facility] (6 sources) Ibuprofen; Translations: [ibuprofen] Drug Allergy 3 Unknown Reaction [facility] (3 sources) Penicillin V Drug Allergy 3 hives [facility] (1 source) Penicillin Drug Allergy 4 [facility] Repository Medications Current Medications Medication Drug Class(es) Dates Sig (Normalized) Sig (Original) acetaminophen 325 mg oral tablet (2 sources) Start: 07-01-2022 acetaminophen (TYLENOL) tablet 650 mg Start: 07-01-2022 End: 07-01-2022 acetaminophen (TYLENOL) tabl et 1,000 mg [id number] actuat albuterol 0.09 mg/actuat metered dose [...] Active docusate sodium 50 mg / sennosides, long term 8.6 mg oral tablet (2 sources) Start: [...] source) Corticosteroid, beta2-Adrenergic Agonist Star t: 01-23 take 2 puff(s) by inhalation at bedtime [...] disintegrating tablet 4 mg polyethylene glycol [id number] [id number] mg powder for oral solution (1 source) [...] Start: 12-03-2021 take 1 capsule by mo [facility] once daily venlafaxine (EFFEXOR XR) 75 [...] Inhalation, 2 TIMES DAILY, First dose on [facility] 07/01/22 at 2000, Until Discontinued Substituted for [...] Tablet,Disintegra ting Discontinued 4 MG PO Q4H June 03, 2017 1:00am August 13, 2022 [...] asthma; Translations: [Moderate persistent asthma, uncomplicated] Chronic Esophageal disorders (2 sources) Gastroesophageal reflux [...] source) Venous insufficiency (chronic) (peripheral) Episodic Other gastrointestinal disorders (2 sources) Dysphagia; Translations: [...] codes; unclassified (1 source) Localized edema Episodic Varicose veins of lower extremity (5 sources) [...] Range Facility Outside Recordson 06-11-2024 Outside Records [id number] [facility] - Other Radiology Report on 06-11-2024 Rad - Other Radiology Report [id number] [facility] - Other Radiology Report [id number] [facility] Alanine aminotransferase [En zymatic activity/volume] in Serum or PlasmaOrdered By: Krzysztof Salazar on 09-20-2023 ALT [Catalytic activity/Vol] 33 U/L 7-52 [facility] Albumin [Mass/volume] in Ser um or PlasmaOrdered By: Krzysztof Salazar on 09-20-2023 Albumin [Mass/Vol] 3.8 g/dL 2.9-4.4 [facility] Albumin [Mass/volume] in Ser um or Plasma by Bromocresol green (BCG) dye binding methoOrdered By: Krzysztof Salazar on 09-20-2023 Albumin BCG dye [Mass/Vol] 4.2 g/dL 3.5-5.7 [facility] Alkaline phosphatase [Enzyma tic activity/volume] in Serum or PlasmaOrdered By: Krzysztof Salazar on 09-20-2023 ALP [Catalytic activity/Vol] 79 U/L 34-104 [facility] Aspartate aminotransferase [ Enzymatic activity/volume] in Serum or PlasmaOrdered By: Krzysztof Salazar on 09-20-2023 AST [Catalytic activity/Vol] 30 U/L 13-39 [facility] Basophils Auto (Bld) [#/Vol] Ordered By: Krzysztof Salazar on 09-20-2023 Basophils (Bld) [#/Vol] 0.0 10*3/uL 0.0-0.2 [facility] Basophils/100 WBC Auto (Bld) Ordered By: Krzysztof Salazar on 09-20-2023 Basophils/100 WBC (Bld) 0.5 % . [facility] Bilirubin.total [Mass/volume ] in Serum or PlasmaOrdered By: Krzysztof Salazar on 09-20-2023 Bilirubin [Mass/Vol] 0.6 mg/dL 0.3-1.0 [facility] Calcium [Mass/volume] in Ser um or PlasmaOrdered By: Krzysztof Salazar on 09-20-2023 Calcium [Mass/Vol] 9.7 mg/dL 8.6-10.3 [facility] Carbon dioxide, total [Moles /volume] in Serum or PlasmaOrdered By: Krzysztof Salazar on 09-20-2023 CO2 [Moles/Vol] 32.4 mmol/L 21.0-31.0 [facility] Chloride [Moles/volume] in S hugo or PlasmaOrdered By: Krzysztof Salazar on 09-20-2023 Chloride [Moles/Vol] 97 mmol/L 98-107 [facility] Creatinine [Mass/volume] in Serum or PlasmaOrdered By: Krzysztof Salazar on 09-20-2023 Creatinine [Mass/Vol] 0.60 mg/dL 0.60-1.20 [facility] Eosinophils Auto (Bld) [#/Vo l]Ordered By: Krzysztof Salazar on 09-20-2023 Eosinophils (Bld) [#/Vol] 0.2 10*3/uL 0.0-0.45 [facility] Eosinophils/100 WBC Auto (Bl d)Ordered By: Krzysztof Salazar on 09-20-2023 Eosinophils/100 WBC (Bld) 2.6 % . [facility] Erythrocyte distribution wid th Auto (RBC) [Ratio]Ordered By: Krzysztof Salazar on 09-20-2023 Erythrocyte distribution width (RBC) [Ratio] 16.7 % 11.9-15.3 [facility] Ferritin [Mass/volume] in Se rum or PlasmaOrdered By: Krzysztof Salazar on 09-20-2023 Ferritin [Mass/Vol] 92.7 ng/mL 11.0-306.8 [facility] Globulin Calc (S) [Mass/Vol] Ordered By: Krzysztof Salazar on 09-20-2023 Globulin (S) [Mass/Vol] 3.5 g/dL [facility] Glucose [Mass/volume] in Ser um or PlasmaOrdered By: Krzysztof Salazar on 09-20-2023 Glucose [Mass/Vol] 123 mg/dL 70-100 [facility] Comment on above: ADA recommended refe rence rangeRandom Glucose Reference Range is dependent on time and content of last meal. Glucose of more than 200 mg/dL in a nonstressed, ambulatory subject supports the diagnosis of Diabetes Mellitus. Hematocrit Auto (Bld) [Volum e fraction]Ordered By: Krzysztof Salazar on 09-20-2023 Hematocrit (Bld) [Volume fraction] 38.3 % 34.0-46.4 [facility] Hemoglobin [Mass/volume] in BloodOrdered By: Krzysztof Salazar on 09-20-2023 Hemoglobin (Bld) [Mass/Vol] 12.5 g/dL 11.8-15.4 [facility] IgA [Mass/volume] in Serum o r PlasmaOrdered By: Krzysztof Salazar on 09-20-2023 IgA [Mass/Vol] 409 mg/dL 87-352 [facility] IgG [Mass/volume] in Serum o r PlasmaOrdered By: Krzysztof Salazar on 09-20-2023 IgG [Mass/Vol] 1704 mg/dL 586-1602 [facility] IgM [Mass/volume] in Serum o r PlasmaOrdered By: Krzysztof Salazar on 09-20-2023 IgM [Mass/Vol] 122 mg/dL 26-217 [facility] Comment on above: Performed at: [address] [id number] Director: Jeyson Duncan PhD, Phone: [phone] Immunoglobulin light chains. kappa.free [Mass/volume] in SerumOrdered By: Krzysztof Salazar on 09-20-2023 Immunoglobulin light chains.kappa.free (S) [Mass/Vol] 30.9 mg/L 3.3-19.4 [facility] Immunoglobulin light chains. kappa.free/Immunoglobulin light chains.lambda.free [MassOrdered By: Krzysztof Salazar on 09-20-2023 Immunoglobulin light chains.kappa.free/Immuno globulin light chains.lambda.free (S) [Mass ratio] 1.17 0.26-1.65 [facility] Comment on above: Performed at: [address] [id number] Director: Jeyson Duncan PhD, Phone: [phone] Immunoglobulin light chains. lambda.free [Mass/volume] in Serum or PlasmaOrdered By: Krzysztof Salazar on 09-20-2023 Immunoglobulin light chains.lambda.free [Mass/Vol] 26.4 mg/L 5.7-26.3 [facility] Iron [Mass/volume] in Serum or PlasmaOrdered By: Krzysztof Salazar on 09-20-2023 Iron [Mass/Vol] 74 ug/dL 50-212 [facility] Iron binding capacity [Mass/ volume] in Serum or PlasmaOrdered By: Krzysztof Salazar on 09-20-2023 Iron binding capacity [Mass/Vol] 344 ug/dL 255-450 [facility] Iron saturation [Mass Fracti on] in Serum or PlasmaOrdered By: Krzysztof Salazar on 09-20-2023 Iron saturation [Mass fraction] 21.5 % 20-50 [facility] Leukocytes [#/volume] correc silverio for nucleated erythrocytes in Blood by Automated counOrdered By: Krzysztof Salazar on 09-20-2023 WBC corrected for nucl RBC Auto (Bld) [#/Vol] 8.5 10*3/uL 3.8-11.6 [facility] Lymphocytes Auto (Bld) [#/Vo l]Ordered By: Krzysztof Salazar on 09-20-2023 Lymphocytes (Bld) [#/Vol] 2.1 10*3/uL 1.00-4.8 [facility] Lymphocytes/100 WBC Auto (Bl d)Ordered By: Krzysztof Salazar on 09-20-2023 Lymphocytes/100 WBC (Bld) 24.7 % . [facility] MCH Auto (RBC) [Entitic mass ]Ordered By: Krzysztof Salazar on 09-20-2023 MCH (RBC) [Entitic mass] 25.8 pg 24.7-34.3 [facility] MCHC Auto (RBC) [Mass/Vol]Or dered By: Krzysztof Salazar on 09-20-2023 MCHC (RBC) [Mass/Vol] 32.7 g/dL 32.0-35.0 [facility] MCV Auto (RBC) [Entitic vol] Ordered By: Krzysztof Salazar on 09-20-2023 MCV (RBC) [Entitic vol] 78.7 fL 80-100 [facility] Monocytes Auto (Bld) [#/Vol] Ordered By: Krzysztof Salazar on 09-20-2023 Monocytes (Bld) [#/Vol] 0.7 10*3/uL 0.0-0.8 [facility] Monocytes/100 WBC Auto (Bld) Ordered By: Krzysztof Salazar on 09-20-2023 Monocytes/100 WBC (Bld) 7.9 % . [facility] Neutrophils Auto (Bld) [#/Vo l]Ordered By: Krzysztof Salazar on 09-20-2023 Neutrophils (Bld) [#/Vol] 5.5 10*3/uL 1.8-7.7 [facility] Neutrophils/100 WBC Auto (Bl d)Ordered By: Krzysztof Salazar on 09-20-2023 Neutrophils/100 WBC (Bld) 64.3 % . [facility] No Panel InformationOrdered By: Krzysztof Salazar on 09-20-2023 Estimated GFR (CKD-EPI) > 60.0 mL/Min [facility] Creatinine Clearance (Chem 143.32 [facility] Protein Electrophoresis M-Antwan Not observed g/dL Not Observed [facility] Protein Electrophoresis Note See comment . [facility] Comment on above: Protein electrophore sis scan will follow via computer,mail, or crane assembler delivery. Serum Immunofixation See comment . [facility] Comment on above: No monoclonality det ected. Nucleated erythrocytes [Pres ence] in Blood by Automated countOrdered By: Krzysztof Salazar on 09-20-2023 Nucleated RBC Auto Ql (Bld) 0.1 /100{WBC} 0-0.5 [facility] Platelet mean volume Auto (B ld) [Entitic vol]Ordered By: Krzysztof Salazar on 09-20-2023 Platelet mean volume (Bld) [Entitic vol] 8.8 fL 6.3-10.7 [facility] Platelets Auto (Bld) [#/Vol] Ordered By: Krzysztof Salazar on 09-20-2023 Platelets (Bld) [#/Vol] 271 10*3/uL 150-450 [facility] Potassium [Moles/volume] in Serum or PlasmaOrdered By: Krzysztof Salazar on 09-20-2023 Potassium [Moles/Vol] 4.4 mmol/L 3.5-5.1 [facility] Protein [Mass/volume] in Ser um or PlasmaOrdered By: Krzysztof Salazar on 09-20-2023 Protein [Mass/Vol] 7.7 g/dL 6.4-8.9 [facility] Protein [Mass/Vol] 7.8 g/dL 6.0-8.5 [facility] RBC Auto (Bld) [#/Vol]Ordere d By: Krzysztof Salazar on 09-20-2023 RBC (Bld) [#/Vol] 4.86 10*6/uL 3.60-5.00 [facility] Serum globulin measurement ( mass/volume)Ordered By: Krzysztof Salazar on 09-20-2023 Globulin (S) [Mass/Vol] 4.0 g/dL 2.2-3.9 [facility] Serum or plasma albumin/glob ulin mass ratioOrdered By: Krzysztof Salazar on 09-20-2023 Albumin/Globulin [Mass ratio] 1.2 {ratio} [facility] Albumin/Globulin [Mass ratio] 1.0 {ratio} 0.7-1.7 [facility] Serum or plasma alpha 1 glob ulin measurement by electrophoresis (mass/volume)Ordered By: Krzysztof Salazar on 09-20-2023 Alpha 1 globulin Elph [Mass/Vol] 0.3 g/dL 0.0-0.4 [facility] Serum or plasma alpha 2 glob ulin measurement by electrophoresis (mass/volume)Ordered By: Krzysztof Salazar on 09-20-2023 Alpha 2 globulin Elph [Mass/Vol] 0.8 g/dL 0.4-1.0 [facility] Serum or plasma anion gap de terminationOrdered By: Krzysztof Salazar on 09-20-2023 Anion gap [Moles/Vol] 11.0 mmol/L 6.0-15.0 [facility] Serum or plasma beta globuli n measurement by electrophoresis (mass/volume)Ordered By: Krzysztof Salazar on 09-20-2023 Beta globulin Elph [Mass/Vol] 1.2 g/dL 0.7-1.3 [facility] Serum or plasma gamma globul in measurement by electrophoresis (mass/volume)Ordered By: Krzysztof Salazar on 09-20-2023 Gamma globulin Elph [Mass/Vol] 1.8 g/dL 0.4-1.8 [facility] Sodium [Moles/volume] in Ser um or PlasmaOrdered By: Krzysztof Salazar on 09-20-2023 Sodium [Moles/Vol] 136 mmol/L 136-145 [facility] Transferrin [Mass/volume] in Serum or PlasmaOrdered By: Krzysztof Salazar on 09-20-2023 Transferrin [Mass/Vol] 246 mg/dL 203-362 [facility] Urea nitrogen [Mass/volume] in Serum or PlasmaOrdered By: Krzysztof Salazar on 09-20-2023 Urea nitrogen [Mass/Vol] 16 mg/dL 7 [facility] WBC Auto (Bld) [#/Vol]Ordere d By: Krzysztof Salazar on 09-20-2023 WBC (Bld) [#/Vol] 8.5 10*3/uL 3.8-11.6 [facility] Alanine aminotransferase [En zymatic activity/volume] in Serum or PlasmaOrdered By: Elizabeth Alvarado on 08-24-2023 ALT [Catalytic activity/Vol] 28 U/L [facility] Albumin [Mass/volume] in Ser um or Plasma by Bromocresol green (BCG) dye binding methoOrdered By: Elizabeth Alvarado on 08-24-2023 Albumin BCG dye [Mass/Vol] 4.3 g/dL 3.5-5.7 [facility] Alkaline phosphatase [Enzyma tic activity/volume] in Serum or PlasmaOrdered By: Elizabeth Alvarado on 08-24-2023 ALP [Catalytic activity/Vol] 86 U/L 34-104 [facility] Aspartate aminotransferase [ Enzymatic activity/volume] in Serum or PlasmaOrdered By: Elizabeth Alvarado on 08-24-2023 AST [Catalytic activity/Vol] 28 U/L 13-39 [facility] Basophils Auto (Bld) [#/Vol] Ordered By: Elizabeth Alvarado on 08-24-2023 Basophils (Bld) [#/Vol] 0.1 10*3/uL 0.0-0.2 [facility] Basophils/100 WBC Auto (Bld) Ordered By: Elizabeth Alvarado on 08-24-2023 Basophils/100 WBC (Bld) 0.7 % . [facility] Bilirubin.total [Mass/volume ] in Serum or PlasmaOrdered By: Elizabeth Alvarado on 08-24-2023 Bilirubin [Mass/Vol] 0.4 mg/dL 0.3-1.0 [facility] Calcium [Mass/volume] in Ser um or PlasmaOrdered By: Elizabeth Alvarado on 08-24-2023 Calcium [Mass/Vol] 9.4 mg/dL 8.6-10.3 [facility] Carbon dioxide, total [Moles /volume] in Serum or PlasmaOrdered By: Elizabeth Alvarado on 08-24-2023 CO2 [Moles/Vol] 29.2 mmol/L 21.0-31.0 [facility] Chloride [Moles/volume] in S hugo or PlasmaOrdered By: Elizabeth Alvarado on 08-24-2023 Chloride [Moles/Vol] 96 mmol/L 98-107 [facility] Cholesterol [Mass/volume] in Serum or PlasmaOrdered By: Elizabeth Alvarado on 08-24-2023 Cholesterol [Mass/Vol] 160 mg/dL 140-200 [facility] Comment on above: Chol less than 200 m g/dl low riskChol 201-239 mg/dl borderline riskChol 240 mg/dl and greater high risk Cholesterol in LDL Calc [Mas s/Vol]Ordered By: Elizabeth Alvarado on 08-24-2023 Cholesterol in LDL [Mass/Vol] 78 mg/dL 0-100 [facility] Comment on above: LDL ATP III CLASSIFI CATIONLDL less than 100 mg/dL OptimalLDL 100-129 mg/dL Near or above optimalLDL 130-159 mg/dL Borderline highLDL 160-189 mg/dL HighLDL greater than 189 mg/dL Very high Cholesterol in VLDL Calc [Ma ss/Vol]Ordered By: Elizabeth Alvarado on 08-24-2023 Cholesterol in VLDL [Mass/Vol] 22 mg/dL [facility] Creatinine [Mass/volume] in Serum or PlasmaOrdered By: Elizabeth Alvarado on 08-24-2023 Creatinine [Mass/Vol] 0.65 mg/dL 0.60-1.20 [facility] Creatinine [Mass/volume] in UrineOrdered By: Elizabeth Alvarado on 08-24-2023 Creatinine (U) [Mass/Vol] 76.0 mg/dL [facility] Comment on above: No reference range e stablished Eosinophils Auto (Bld) [#/Vo l]Ordered By: Elizabeth Alvarado on 08-24-2023 Eosinophils (Bld) [#/Vol] 0.3 10*3/uL 0.0-0.45 [facility] Eosinophils/100 WBC Auto (Bl d)Ordered By: Elizabeth Alvarado on 08-24-2023 Eosinophils/100 WBC (Bld) 3.3 % . [facility] Erythrocyte distribution wid th Auto (RBC) [Ratio]Ordered By: Elizabeth Alvarado on 08-24-2023 Erythrocyte distribution width (RBC) [Ratio] 15.8 % 11.9-15.3 [facility] Globulin Calc (S) [Mass/Vol] Ordered By: Elizabeth Alvarado on 08-24-2023 Globulin (S) [Mass/Vol] 3.4 g/dL [facility] Glucose [Mass/volume] in Ser um or PlasmaOrdered By: Elizabeth Alvarado on 08-24-2023 Glucose [Mass/Vol] 92 mg/dL 70-100 [facility] Comment on above: ADA recommended refe rence rangeRandom Glucose Reference Range is dependent on time and content of last meal. Glucose of more than 200 mg/dL in a nonstressed, ambulatory subject supports the diagnosis of Diabetes Mellitus. Hematocrit Auto (Bld) [Volum e fraction]Ordered By: Elizabeth Alvarado on 08-24-2023 Hematocrit (Bld) [Volume fraction] 40.6 % 34.0-46.4 [facility] Hemoglobin [Mass/volume] in BloodOrdered By: Elizabeth Alvarado on 08-24-2023 Hemoglobin (Bld) [Mass/Vol] 13.2 g/dL 11.8-15.4 [facility] Leukocytes [#/volume] correc silverio for nucleated erythrocytes in Blood by Automated counOrdered By: Elizabeth Alvarado on 08-24-2023 WBC corrected for nucl RBC Auto (Bld) [#/Vol] 10.2 10*3/uL 3.8-11.6 [facility] Lymphocytes Auto (Bld) [#/Vo l]Ordered By: Elizabeth Alvarado on 08-24-2023 Lymphocytes (Bld) [#/Vol] 2.6 10*3/uL 1.00-4.8 [facility] Lymphocytes/100 WBC Auto (Bl d)Ordered By: Elizabeth Alvarado on 08-24-2023 Lymphocytes/100 WBC (Bld) 25.5 % . [facility] MCH Auto (RBC) [Entitic mass ]Ordered By: Elizabeth Alvarado on 08-24-2023 MCH (RBC) [Entitic mass] 26.1 pg 24.7-34.3 [facility] MCHC Auto (RBC) [Mass/Vol]Or dered By: Elizabeth Alvarado on 08-24-2023 MCHC (RBC) [Mass/Vol] 32.5 g/dL 32.0-35.0 [facility] MCV Auto (RBC) [Entitic vol] Ordered By: Elizabeth Alvarado on 08-24-2023 MCV (RBC) [Entitic vol] 80.3 fL 80-100 [facility] Microalbumin [Mass/volume] i n UrineOrdered By: Elizabeth Alvarado on 08-24-2023 Albumin DL <= 20 mg/L (U) [Mass/Vol] mg/dL 0.0-1.8 [facility] Monocytes Auto (Bld) [#/Vol] Ordered By: Elizabeth Alvarado on 08-24-2023 Monocytes (Bld) [#/Vol] 0.8 10*3/uL 0.0-0.8 [facility] Monocytes/100 WBC Auto (Bld) Ordered By: Elizabeth Alvarado on 08-24-2023 Monocytes/100 WBC (Bld) 8.1 % . [facility] Neutrophils Auto (Bld) [#/Vo l]Ordered By: Elizabeth Alvarado on 08-24-2023 Neutrophils (Bld) [#/Vol] 6.4 10*3/uL 1.8-7.7 [facility] Neutrophils/100 WBC Auto (Bl d)Ordered By: Elizabeth Alvarado on 08-24-2023 Neutrophils/100 WBC (Bld) 62.4 % . [facility] No Panel InformationOrdered By: Elizabeth Alvarado on 08-24-2023 Estimated GFR (CKD-EPI) > 60.0 mL/Min [facility] Creatinine Clearance (Chem N/A [facility] Nucleated erythrocytes [Pres ence] in Blood by Automated countOrdered By: Elizabeth Alvarado on 08-24-2023 Nucleated RBC Auto Ql (Bld) 0.2 /100{WBC} 0-0.5 [facility] Platelet mean volume Auto (B ld) [Entitic vol]Ordered By: Elizabeth Alvarado on 08-24-2023 Platelet mean volume (Bld) [Entitic vol] 9.8 fL 6.3-10.7 [facility] Platelets Auto (Bld) [#/Vol] Ordered By: Elizabeth Alvarado on 08-24-2023 Platelets (Bld) [#/Vol] 283 10*3/uL 150-450 [facility] Potassium [Moles/volume] in Serum or PlasmaOrdered By: Elizabeth Alvarado on 08-24-2023 Potassium [Moles/Vol] 4.3 mmol/L 3.5-5.1 [facility] Protein [Mass/volume] in Ser um or PlasmaOrdered By: Elizabeth Alvarado on 08-24-2023 Protein [Mass/Vol] 7.7 g/dL 6.4-8.9 [facility] RBC Auto (Bld) [#/Vol]Ordere d By: Elizabeth Alvarado on 08-24-2023 RBC (Bld) [#/Vol] 5.06 10*6/uL 3.60-5.00 [facility] Serum or plasma albumin/glob ulin mass ratioOrdered By: Elizabeth Alvarado on 08-24-2023 Albumin/Globulin [Mass ratio] 1.3 {ratio} [facility] Serum or plasma anion gap de terminationOrdered By: Elizabeth Alvarado on 08-24-2023 Anion gap [Moles/Vol] 18.1 mmol/L 6.0-15.0 [facility] Serum or plasma high density lipoprotein (HDL) cholesterol measurementOrdered By: Elizabeth Alvarado on 08-24-2023 Cholesterol in HDL [Mass/Vol] 60 mg/dL 23-92 [facility] Comment on above: HDL CHOL ATP-III CLA SSIFICATION Cardiovascular RiskHDL > or equal to 60 mg/dL LOWHDL < 40 mg/dL HIGH Serum or plasma total choles terol/high density lipoprotein (HDL) cholesterol mass ratOrdered By: Elizabeth Alvarado on 08-24-2023 Cholesterol.total/Choles terol in HDL [Mass ratio] 2.7 {ratio} <5.0 [facility] Sodium [Moles/volume] in Ser um or PlasmaOrdered By: Elizabeth Alvarado on 08-24-2023 Sodium [Moles/Vol] 139 mmol/L 136-145 [facility] Thyrotropin [Units/volume] i n Serum or PlasmaOrdered By: Elizabeth Alvarado on 08-24-2023 TSH Qn 2.40 m[IU]/L 0.45-5.33 [facility] Triglyceride [Mass/volume] i n Serum or PlasmaOrdered By: Elizabeth Alvarado on 08-24-2023 Triglyceride [Mass/Vol] 112 mg/dL 0-149 [facility] Comment on above: TRIG ATP III CLASSIF ICATIONTRIG less than 150 mg/dL NormalTRIG 150-199 mg/dL Borderline highTRIG 200-500 mg/dL High TRIG greater than 500 mg/dL Very highStandard traceable to the Center for Disease Conrtrol and Prevention (CDC) test method. Urea nitrogen [Mass/volume] in Serum or PlasmaOrdered By: Elizabeth Alvarado on 08-24-2023 Urea nitrogen [Mass/Vol] 17 mg/dL 7-25 [facility] Urine microalbumin/creatinin e mass ratioOrdered By: Elizabeth Alvarado on 08-24-2023 Albumin/Creatinine DL <= 20 mg/L (U) [Mass ratio] TNP [facility] Comment on above: Test not performed WBC Auto (Bld) [#/Vol]Ordere d By: Elizabeth Alvarado on 08-24-2023 WBC (Bld) [#/Vol] 10.2 10*3/uL 3.8-11.6 [facility] Established Visit (Orthopaed ic Surgery)on 12-29-2022 Established [...] grammatical areas may persist related to the [employer] software Merrill Alejandro PA-C . Active Problems [...] Dec 29 2022 1:38PM EST (Author) Normal [place] Established Visit (Orthopaed ic Surgery)on 09-22-2022 Established [...] grammatical areas may persist related to the [employer] software Acosta Schafer MD Senior Attending Physician [facility] [place] . Active Problems Problems Acute pain of [...] 1 tablet daily Results/Data Xray Knee 3 [id number] 01:48PMAcosta Schafer Test NameResultFlagReference Xray Knee 3 View(Report) FINAL REPORT Interpreted by: ACOSTA SCHAFER BURTON, MD 09/22/22 14:13 Patient Name: GEETA SHELTON STUDY: KNEE; 3 VIEWS; Right; 09/22/2022 1:48 pm INDICATION: pain Z96.659: Status post total knee replacement. ACCESSION NUMBER(S): [id number] ORDERING CLINICIAN: ACOSTA SCHAFER FINDINGS: Right knee [...] Status post total knee replacement. ACCESSION NUMBER(S): [id number] ORDERING CLINICIAN: ACOSTA SCHAFER FINDINGS: Right knee three views. Status post revision total knee replacement components in good position no signs of fracture dislocation or other bony abnormalities Electronically signed by: ACOSTA SCHAFER MD Normal [facility] Radiologyon 09-22-2022 XR Knee 3 Views Normal [facility] Work Phone: Alanine aminotransferase [En zymatic activity/volume] in Serum or PlasmaOrdered By: Zoey Ramirez on 08-17-2022 ALT [Catalytic activity/Vol] 45 U/L 7-52 [facility] Albumin [Mass/volume] in Ser um or PlasmaOrdered By: Zoey Ramirez on 08-17-2022 Albumin [Mass/Vol] 3.7 g/dL 2.9-4.4 [facility] Albumin [Mass/volume] in Ser um or Plasma by Bromocresol green (BCG) dye binding methoOrdered By: Zoey Ramirez on 08-17-2022 Albumin BCG dye [Mass/Vol] 4.1 g/dL 3.5-5.7 [facility] Albumin/Protein.total in 24 hour Urine by ElectrophoresisOrdered By: Zoey Ramirez on 08-17-2022 Albumin Elph (24H U) [Mass fraction] 59.9 % . [facility] Alkaline phosphatase [Enzyma tic activity/volume] in Serum or PlasmaOrdered By: Zoey Ramirez on 08-17-2022 ALP [Catalytic activity/Vol] 90 U/L 34-104 [facility] Aspartate aminotransferase [ Enzymatic activity/volume] in Serum or PlasmaOrdered By: Zoey Ramirez on 08-17-2022 AST [Catalytic activity/Vol] 40 U/L 13-39 [facility] Basophils Auto (Bld) [#/Vol] Ordered By: Zoey Ramirez on 08-17-2022 Basophils (Bld) [#/Vol] 0.1 10*3/uL 0.0-0.2 [facility] Basophils/100 WBC Auto (Bld) Ordered By: Zoey Ramirez on 08-17-2022 Basophils/100 WBC (Bld) 0.9 % . [facility] Bilirubin.total [Mass/volume ] in Serum or PlasmaOrdered By: Zoey Ramirez on 08-17-2022 Bilirubin [Mass/Vol] 0.4 mg/dL 0.3-1.0 [facility] Calcium [Mass/volume] in Ser um or PlasmaOrdered By: Zoey Ramirez on 08-17-2022 Calcium [Mass/Vol] 9.1 mg/dL 8.6-10.3 [facility] Carbon dioxide, total [Moles /volume] in Serum or PlasmaOrdered By: Zoey Ramirez on 08-17-2022 CO2 [Moles/Vol] 27.9 mmol/L 21.0-31.0 [facility] Chloride [Moles/volume] in S hugo or PlasmaOrdered By: Zoey Ramirez on 08-17-2022 Chloride [Moles/Vol] 100 mmol/L 98-107 [facility] Creatinine [Mass/volume] in Serum or PlasmaOrdered By: Zoey Ramirez on 08-17-2022 Creatinine [Mass/Vol] 0.71 mg/dL 0.60-1.20 [facility] Eosinophils Auto (Bld) [#/Vo l]Ordered By: Zoey Ramirez on 08-17-2022 Eosinophils (Bld) [#/Vol] 0.3 10*3/uL 0.0-0.45 [facility] Eosinophils/100 WBC Auto (Bl d)Ordered By: Zoey Ramirez on 08-17-2022 Eosinophils/100 WBC (Bld) 3.1 % . [facility] Erythrocyte distribution wid th Auto (RBC) [Ratio]Ordered By: Zoey Ramirez on 08-17-2022 Erythrocyte distribution width (RBC) [Ratio] 16.5 % 11.9-15.3 [facility] Ferritin [Mass/volume] in Se rum or PlasmaOrdered By: Zoey Ramirez on 08-17-2022 Ferritin [Mass/Vol] 85.3 ng/mL 11.0-306.8 [facility] Folate [Mass/volume] in Seru m or PlasmaOrdered By: Zoey Ramirez on 08-17-2022 Folate [Mass/Vol] 15.1 ng/mL >5.9 [facility] Comment on above: Folate reference ran ge: >5.9 ng/mlThe WHO technical consultation on folate and vitamin [id number] has determined that folate concentrations lessthan 4 ng/ml are considered deficient. Gamma globulin/Protein.total in 24 hour Urine by ElectrophoresisOrdered By: Zoey Ramirez on 08-17-2022 Gamma globulin Elph (24H U) [Mass fraction] 15.3 % . [facility] Globulin Calc (S) [Mass/Vol] Ordered By: Zoey Ramirez on 08-17-2022 Globulin (S) [Mass/Vol] 4.0 g/dL [facility] Glucose [Mass/volume] in Ser um or PlasmaOrdered By: Zoey Ramirez on 08-17-2022 Glucose [Mass/Vol] 142 mg/dL 70-100 [facility] Comment on above: ADA recommended refe rence rangeRandom Glucose Reference Range is dependent on time and content of last meal. Glucose of more than 200 mg/dL in a nonstressed, ambulatory subject supports the diagnosis of Diabetes Mellitus. Hematocrit Auto (Bld) [Volum e fraction]Ordered By: Zoey Ramirez on 08-17-2022 Hematocrit (Bld) [Volume fraction] 41.3 % 34.0-46.4 [facility] Hemoglobin [Mass/volume] in BloodOrdered By: Zoey Ramirez on 08-17-2022 Hemoglobin (Bld) [Mass/Vol] 13.2 g/dL 11.8-15.4 [facility] IgA [Mass/volume] in Serum o r PlasmaOrdered By: Zoey Ramirez on 08-17-2022 IgA [Mass/Vol] 498 mg/dL 87-352 [facility] IgG [Mass/volume] in Serum o r PlasmaOrdered By: Zoey Ramirez on 08-17-2022 IgG [Mass/Vol] 1834 mg/dL 586-1602 [facility] IgM [Mass/volume] in Serum o r PlasmaOrdered By: Zoey Ramirez on 08-17-2022 IgM [Mass/Vol] 124 mg/dL 26-217 [facility] Comment on above: Performed at: [facility] [address] [id number] Director: Jeyson Duncan PhD, Phone: [phone] Immunofixation for UrineOrde red By: Zoey Ramirez on 08-17-2022 Interpretation Immunofixation (U) [Interp] See comment . [facility] Comment on above: No monoclonality det ected.Performed at: [employer] [facility] [address] [id number] Director: Jeyson Duncan PhD, Phone: [employer] Immunoglobulin light chains. kappa.free [Mass/volume] in SerumOrdered By: Zoey Ramirez on 08-17-2022 Immunoglobulin light chains.kappa.free (S) [Mass/Vol] 47.1 mg/L 3.3-19.4 [facility] Immunoglobulin light chains. kappa.free/Immunoglobulin light chains.lambda.free [MassOrdered By: Zoey Ramirez on 08-17-2022 Immunoglobulin light chains.kappa.free/Immuno globulin light chains.lambda.free (S) [Mass ratio] 1.65 0.26-1.65 [facility] Comment on above: Performed at: - [address] [id number] Director: Jeyson Duncan PhD, Phone: [phone] Immunoglobulin light chains. lambda.free [Mass/volume] in Serum or PlasmaOrdered By: Zoey Ramirez on 08-17-2022 Immunoglobulin light chains.lambda.free [Mass/Vol] 28.6 mg/L 5.7-26.3 [facility] Iron [Mass/volume] in Serum or PlasmaOrdered By: Zoey Ramirez on 08-17-2022 Iron [Mass/Vol] 41 ug/dL 50-212 [facility] Iron binding capacity [Mass/ volume] in Serum or PlasmaOrdered By: Zoey Ramirez on 08-17-2022 Iron binding capacity [Mass/Vol] 344 ug/dL 255-450 [facility] Iron saturation [Mass Fracti on] in Serum or PlasmaOrdered By: Zoey Ramirez on 08-17-2022 Iron saturation [Mass fraction] 11.9 % 20-50 [facility] Leukocytes [#/volume] correc silverio for nucleated erythrocytes in Blood by Automated counOrdered By: Zoey Ramirez on 08-17-2022 WBC corrected for nucl RBC Auto (Bld) [#/Vol] 9.9 10*3/uL 3.8-11.6 [facility] Lymphocytes Auto (Bld) [#/Vo l]Ordered By: Zoey Ramirez on 08-17-2022 Lymphocytes (Bld) [#/Vol] 2.8 10*3/uL 1.00-4.8 [facility] Lymphocytes/100 WBC Auto (Bl d)Ordered By: Zoey Ramirez on 08-17-2022 Lymphocytes/100 WBC (Bld) 28.5 % . [facility] MCH Auto (RBC) [Entitic mass ]Ordered By: Zoey Ramirez on 08-17-2022 MCH (RBC) [Entitic mass] 24.9 pg 24.7-34.3 [facility] MCHC Auto (RBC) [Mass/Vol]Or dered By: Zoey Ramirez on 08-17-2022 MCHC (RBC) [Mass/Vol] 32.0 g/dL 32.0-35.0 [facility] MCV Auto (RBC) [Entitic vol] Ordered By: Zoey Ramirez on 08-17-2022 MCV (RBC) [Entitic vol] 77.8 fL 80-100 [facility] Monocytes Auto (Bld) [#/Vol] Ordered By: Zoey Ramirez on 08-17-2022 Monocytes (Bld) [#/Vol] 0.6 10*3/uL 0.0-0.8 [facility] Monocytes/100 WBC Auto (Bld) Ordered By: Zoey Ramirez on 08-17-2022 Monocytes/100 WBC (Bld) 5.9 % . [facility] Neutrophils Auto (Bld) [#/Vo l]Ordered By: Zoey Ramirez on 08-17-2022 Neutrophils (Bld) [#/Vol] 6.1 10*3/uL 1.8-7.7 [facility] Neutrophils/100 WBC Auto (Bl d)Ordered By: Zoey Ramirez on 08-17-2022 Neutrophils/100 WBC (Bld) 61.6 % . [facility] No Panel InformationOrdered By: Zoey Ramirez on 08-17-2022 Estimated GFR (CKD-EPI) > 60.0 mL/Min [facility] Creatinine Clearance (Chem 122.85 [facility] Protein Electrophoresis M-Antwan Not observed g/dL Not Observed [facility] Protein Electrophoresis Note See comment . [facility] Comment on above: Protein electrophore sis scan will follow via computer,mail, or crane assembler delivery.Performed at: [address] [id number] Director: Jeyson Duncan PhD, Phone: [phone] Serum Immunofixation Comment: . [facility] Comment on above: Presence of monoclon al protein is unclear at this time. Suggestrepeat in 3 to 6 months if clinically indicated. Urine Random Prot Electrophor Note See comment . [facility] Comment on above: Protein electrophore sis scan will follow via computer,mail, or crane assembler delivery.Performed at: [address] [id number] Director: Jeyson Duncan PhD, Phone: [phone] Nucleated erythrocytes [Pres ence] in Blood by Automated countOrdered By: Zoey Ramirez on 08-17-2022 Nucleated RBC Auto Ql (Bld) 0.1 /100{WBC} 0-0.5 [facility] Platelet mean volume Auto (B ld) [Entitic vol]Ordered By: Zoey Ramirez on 08-17-2022 Platelet mean volume (Bld) [Entitic vol] 8.5 fL 6.3-10.7 [facility] Platelets Auto (Bld) [#/Vol] Ordered By: Zoey Ramirez on 08-17-2022 Platelets (Bld) [#/Vol] 345 10*3/uL 150-450 [facility] Potassium [Moles/volume] in Serum or PlasmaOrdered By: Zoey Ramirez on 08-17-2022 Potassium [Moles/Vol] 4.7 mmol/L 3.5-5.1 [facility] Protein [Mass/volume] in Ser um or PlasmaOrdered By: Zoey Ramirez on 08-17-2022 Protein [Mass/Vol] 8.1 g/dL 6.4-8.9 [facility] Protein [Mass/Vol] 8.0 g/dL 6.0-8.5 [facility] Protein [Mass/volume] in Uri neOrdered By: Zoey Ramirez on 08-17-2022 Protein (U) [Mass/Vol] 75.0 mg/dL Not Estab. [facility] Protein.monoclonal/Protein.t otal in 24 hour Urine by ElectrophoresisOrdered By: Zoey Ramirez on 08-17-2022 Protein.monoclonal Elph (24H U) [Mass fraction] Not observed % Not Observed [facility] RBC Auto (Bld) [#/Vol]Ordere d By: Zoey Ramirez on 08-17-2022 RBC (Bld) [#/Vol] 5.31 10*6/uL 3.60-5.00 [facility] Serum globulin measurement ( mass/volume)Ordered By: Zoey Ramirez on 08-17-2022 Globulin (S) [Mass/Vol] 4.3 g/dL 2.2-3.9 [facility] Serum or plasma albumin/glob ulin mass ratioOrdered By: Zoey Ramirez on 08-17-2022 Albumin/Globulin [Mass ratio] 1.0 {ratio} [facility] Albumin/Globulin [Mass ratio] 0.9 {ratio} 0.7-1.7 [facility] Serum or plasma alpha 1 glob ulin measurement by electrophoresis (mass/volume)Ordered By: Zoey Ramirez on 08-17-2022 Alpha 1 globulin Elph [Mass/Vol] 0.3 g/dL 0.0-0.4 [facility] Serum or plasma alpha 2 glob ulin measurement by electrophoresis (mass/volume)Ordered By: Zoey Ramirez on 08-17-2022 Alpha 2 globulin Elph [Mass/Vol] 0.8 g/dL 0.4-1.0 [facility] Serum or plasma anion gap de terminationOrdered By: Zoey Ramirez on 08-17-2022 Anion gap [Moles/Vol] 12.8 mmol/L 6.0-15.0 [facility] Serum or plasma beta globuli n measurement by electrophoresis (mass/volume)Ordered By: Zoey Ramirez on 08-17-2022 Beta globulin Elph [Mass/Vol] 1.3 g/dL 0.7-1.3 [facility] Serum or plasma gamma globul in measurement by electrophoresis (mass/volume)Ordered By: Zoey Ramirez on 08-17-2022 Gamma globulin Elph [Mass/Vol] 1.9 g/dL 0.4-1.8 [facility] Sodium [Moles/volume] in Ser um or PlasmaOrdered By: Zoey Ramirez on 08-17-2022 Sodium [Moles/Vol] 136 mmol/L 136-145 [facility] Transferrin [Mass/volume] in Serum or PlasmaOrdered By: Zoey Ramirez on 08-17-2022 Transferrin [Mass/Vol] 246 mg/dL 203-362 [facility] Urea nitrogen [Mass/volume] in Serum or PlasmaOrdered By: Zoey Ramirez on 08-17-2022 Urea nitrogen [Mass/Vol] 23 mg/dL 7-25 [facility] Urine alpha 1 globulin/total protein by electrophoresisOrdered By: Zoey Ramirez on 08-17-2022 Alpha 1 globulin Elph (U) [Mass fraction] 4.5 % . [facility] Urine alpha 2 globulin/total protein ratio by electrophoresisOrdered By: Zoey Ramirez on 08-17-2022 Alpha 2 globulin Elph (U) [Mass fraction] 7.7 % . [facility] Urine beta globulin measurem ent by electrophoresis (mass/volume)Ordered By: Zoey Ramirez on 08-17-2022 Beta globulin Elph (U) [Mass/Vol] 12.6 % . [facility] Vitamin B12 ser/plasOrdered By: Zoey Ramirez on 08-17-2022 Cobalamin (Vitamin B12) [Mass/Vol] 387 pg/mL 180-914 [facility] WBC Auto (Bld) [#/Vol]Ordere d By: Zoey Ramirez on 08-17-2022 WBC (Bld) [#/Vol] 9.9 10*3/uL 3.8-11.6 [facility] Established Visit (Orthopaed ic Surgery)on 08-11-2022 Established [...] to do her outpatient physical therapy at [facility]. She has a few visits left. [...] grammatical areas may persist related to the [employer] software Merrill Alejandro PA-C . Active Problems [...] Aug 11 2022 10:34AM EST (Author) Normal [employer] Albumin [Mass/volume] in Ser um or PlasmaOrdered By: Lorrie Baig on 07-23-2022 Albumin [Mass/Vol] 3.3 g/dL 2.9-4.4 [facility] Creatine kinase [Enzymatic a ctivity/volume] in Serum or PlasmaOrdered By: Lorrie Baig on 07-23-2022 CK [Catalytic activity/Vol] 51 U/L 30-223 [facility] Erythrocyte sedimentation ra te by Photometric methodOrdered By: Lorrie Baig on 07-23-2022 ESR Photometric method (Bld) [Velocity] 65 mm/hr 0-29 [facility] Folate [Mass/volume] in Seru m or PlasmaOrdered By: Lorrie Baig on 07-23-2022 Folate [Mass/Vol] 12.8 ng/mL >5.9 [facility] Comment on above: Folate reference ran ge: >5.9 ng/mlThe WHO technical consultation on folate and vitamin [id number] has determined that folate concentrations lessthan 4 ng/ml are considered deficient. Magnesium [Mass/volume] in S hugo or PlasmaOrdered By: Lorrie Baig on 07-23-2022 Magnesium [Mass/Vol] 1.8 mg/dL 1.9-2.7 [facility] No Panel InformationOrdered By: Lorrie Baig on 07-23-2022 Protein Electrophoresis Interpret See comment . [facility] Comment on above: Faint band in gamma region suspicious for monoclonalimmunoglobulin. This band may represent a benign spike asseen in older people or could be a paraprotein as seen inMultiple Myeloma, Waldenstrom's Macroglobulinemia orLymphoma. Depending on clinical circumstances, furtherdiagnostic studies may include serum immunofixation orserum free light chain quantitation.Performed at: [address] [id number] Director: Jeyson Duncan PhD, Phone: [phone] Protein Electrophoresis M-Antwan Comment: g/dL Not Observed [facility] Comment on above: ASYMMETRICAL GAMMA Protein Electrophoresis Note See comment . [facility] Comment on above: Protein electrophore sis scan will follow via computer,mail, or crane assembler delivery. Phosphate [Mass/volume] in S hugo or PlasmaOrdered By: Lorrie Baig on 07-23-2022 Phosphate [Mass/Vol] 4.5 mg/dL 3.7-7.2 [facility] Protein [Mass/volume] in Ser um or PlasmaOrdered By: Lorrie Baig on 07-23-2022 Protein [Mass/Vol] 7.2 g/dL 6.0-8.5 [facility] Serum globulin measurement ( mass/volume)Ordered By: Lorrie Baig on 07-23-2022 Globulin (S) [Mass/Vol] 3.9 g/dL 2.2-3.9 [facility] Serum or plasma albumin/glob ulin mass ratioOrdered By: Lorrie Baig on 07-23-2022 Albumin/Globulin [Mass ratio] 0.8 {ratio} 0.7-1.7 [facility] Serum or plasma alpha 1 glob ulin measurement by electrophoresis (mass/volume)Ordered By: Lorrie Baig on 07-23-2022 Alpha 1 globulin Elph [Mass/Vol] 0.3 g/dL 0.0-0.4 [facility] Serum or plasma alpha 2 glob ulin measurement by electrophoresis (mass/volume)Ordered By: Lorrie Baig on 07-23-2022 Alpha 2 globulin Elph [Mass/Vol] 0.7 g/dL 0.4-1.0 [facility] Serum or plasma beta globuli n measurement by electrophoresis (mass/volume)Ordered By: Lorrie Baig on 07-23-2022 Beta globulin Elph [Mass/Vol] 1.2 g/dL 0.7-1.3 [facility] Serum or plasma gamma globul in measurement by electrophoresis (mass/volume)Ordered By: Lorrie Baig on 07-23-2022 Gamma globulin Elph [Mass/Vol] 1.7 g/dL 0.4-1.8 [facility] Thyrotropin [Units/volume] i n Serum or PlasmaOrdered By: Lorrie Baig on 07-23-2022 TSH Qn 4.76 m[IU]/L 0.45-5.33 [facility] Vitamin B12 ser/plasOrdered By: Lorrie Baig on 07-23-2022 Cobalamin (Vitamin B12) [Mass/Vol] 358 pg/mL 180-914 [facility] KNEE 3 VIEWSon 07-14-2022 KNEE 3 VIEWS Patient Name: GEETA SHELTON STUDY: KNEE; 3 VIEWS; Right; 07/14/2022 8:47 am INDICATION: pain Z96.659: Status post total knee replacement. ACCESSION NUMBER(S): [id number] ORDERING CLINICIAN: ACOSTA SCHAFER FINDINGS: Right knee three views. Status post revision type total knee replacement components in good position no signs of fracture dislocation or other bony abnormality dee in the soft tissues anteriorly. Electronically signed by: ACOSTA SCHAFER MD [facility] Post Op (Orthopaedic Surgery )on 07-14-2022 Post [...] she will most likely do this at [facility] in [place]. Physical exam General: No acute distress and [...] grammatical areas may persist related to the [employer] software Merrill Alejandro PA-C . Active Problems Problems Acute pain of both knees (338.19,719.46) (M25.561,M25.562) Status post total knee replacement (V43.65) (Z96.659) Allergies Medication Penicillins Recorded By: Tarsha Murray; 05/18/2022 8:47:33 AM Current Meds Medication NameInstruction Xarelto 10 MG Oral TabletTake 1 tablet daily Results/Data Xray Knee 3 [id number] 08:47AMSAcosta steward Test NameResultFlagReference Xray Knee 3 View(Report) FINAL REPORT Interpreted by: ACOSTA SCHAFER BURTON, MD 07/14/22 08:49 Patient Name: GEETA SHELTON STUDY: KNEE; 3 VIEWS; Right; 07/14/2022 8:47 am INDICATION: pain Z96.659: Status post total knee replacement. ACCESSION NUMBER(S): [id number] ORDERING CLINICIAN: ACOSTA SCHAFER FINDINGS: Right knee [...] Radiologyon 07-14-2022 XR Knee 3 Views Normal -[facility] Work Phone: Basic Metabolic Panel Reflex Mgon 07-03-2022 Anion gap [Moles/Vol] 10 mmol/L Normal 9-15 [facility] Comment on above: Performed By: #### B MPX #### [facility] [address] [place] [address] Calcium [Mass/Vol] 9.2 mg/dL Normal 8.5-9.9 [facility] Comment on above: Performed By: #### B MPX #### [facility] [address] [place] [address] Chloride [Moles/Vol] 100 mmol/L Normal 95-107 [facility] Comment on above: Performed By: #### B MPX #### [facility] [address] [place] [address] CO2 [Moles/Vol] 27 mmol/L Normal 20-31 [facility] Comment on above: Performed By: #### B MPX #### [facility] [address] [place] [address] Creatinine [Mass/Vol] 0.51 mg/dL Normal 0.50-0.90 [facility] Comment on above: Performed By: #### B MPX #### [facility] [address] [place] [address] GFR >60.0 Normal >60 [facility] [address] [place] [address] Glucose [Mass/Vol] 132 mg/dL Critically high 70-99 [facility] Comment on above: Performed By: #### B MPX #### [facility] [address] [place] [address] Magnesium [Moles/Vol] 4.6 mmol/L Normal 3.4-4.9 [facility] Comment on above: Performed By: #### B MPX #### [facility] [address] [place] [address] Sodium [Moles/Vol] 137 mmol/L Normal 135-144 [facility] Comment on above: Performed By: #### B MPX #### [facility] [address] [place] [address] Urea nitrogen [Mass/Vol] 12 mg/dL Normal 6-20 [facility] Comment on above: Performed By: #### B MPX #### [facility] [address] [place] [address] Basic Metabolic Panel w/ Ref hillary to MGon 07-03-2022 Anion gap [Moles/Vol] 10 mmol/L [facility] triptap Calcium [Mass/Vol] 9.2 mg/dL 8.5 - 9.9 mg/dL [facility] [employer] Chloride [Moles/Vol] 100 mmol/L [facility] [employer] CO2 [Moles/Vol] 27 mmol/L [facility] [employer] Creatinine [Mass/Vol] 0.51 mg/dL 0.50 - 0.90 mg/dL [facility] GFR/1.73 sq M.predicted MDRD (S/P/Bld) [Vol rate/Area] 60 - [facility] Comment on above: Pediatric calculator link https://www.kidney.org/professionals/kdoqi/gfr_calculatorped [...] mg/dL High 70 - 99 mg/dL [facility] Interpretation and review of laboratory results Abnormal [facility] Potassium reflex Magnesium 4.6 [facility] Sodium [Moles/Vol] 137 mmol/L [facility] Urea nitrogen (BldV) [Mass/Vol] 12 mg/dL 6 - 20 mg/dL [facility] CBCon 07-03-2022 Hematocrit (Bld) [Volume fraction] 39.9 % 37.0 - 47.0 % [facility] Hemoglobin (Bld) [Mass/Vol] 12.9 g/dL 12.0 - 16.0 g/dL [facility] Interpretation and review of laboratory results Abnormal [facility] MCH (RBC) [Entitic mass] 25.7 pg Low 27. 0 - 31.3 pg [facility] MCHC (RBC) [Mass/Vol] 32.3 % Low 33.0 - 37.0 % [facility] MCV (RBC) [Entitic vol] 79.6 fL 79.4 - 94.8 fL [facility] Platelet distribution width (Bld) [Ratio] 16.5 % High 11.5 - 14.5 % [facility] Platelets (Bld) [#/Vol] 230 10*3/uL 130 - 400 K/uL [facility] RBC (Bld) [#/Vol] 5.02 10*6/uL [facility] WBC (Bld) [#/Vol] 9.2 10*3/uL 4.8 - 10.8 K/uL [facility] CBC With Platelet No Differe ntialon 07-03-2022 Erythrocyte distribution width (RBC) [Ratio] 16.5 % Critically high 11.5-14.5 [facility] Comment on above: Performed By: #### C BCND #### [facility] [address] [place] [address] Hematocrit (Bld) [Volume fraction] 39.9 % Normal 37.0-47.0 [facility] Comment on above: Performed By: #### C BCND #### [facility] [address] [place] [address] Hemoglobin (Bld) [Mass/Vol] 12.9 g/dL Normal 12.0-16.0 [facility] Comment on above: Performed By: #### C BCND #### [facility] [address] [place] [address] MCH (RBC) [Entitic mass] 25.7 pg Low 27.0-31.3 [facility] Comment on above: Performed By: #### C BCND #### [facility] [address] [place] [address] MCHC 32.3 % Low 33.0-37.0 [facility] Comment on above: Performed By: #### C BCND #### [facility] [address] [place] [address] MCV (RBC) [Entitic vol] 79.6 fL Normal 79.4-94.8 [facility] Comment on above: Performed By: #### C BCND #### [facility] [address] [place] [address] Platelets (Bld) [#/Vol] 230 10*3/uL Normal 130-400 [facility] Comment on above: Performed By: #### C BCND #### [facility] [address] [place] [address] RBC (Bld) [#/Vol] 5.02 10*6/uL Normal 4.20-5.40 [facility] Comment on above: Performed By: #### C BCND #### [facility] [address] [place] [address] WBC (Bld) [#/Vol] 9.2 10*3/uL Normal 4.8-10.8 [facility] Comment on above: Performed By: #### C BCND #### [facility] [address] [place] [address] Basic Metabolic Panel Reflex Mgon 07-02-2022 Anion gap [Moles/Vol] 8 mmol/L Low 9-15 [facility] Comment on above: Order Comment: Daja ction has been rescheduled by HERAM at 07/02/2022 05:49 Reason: Come back last per rn fouzia Performed By: #### B MPX #### [facility] [address] [place] [address] Calcium [Mass/Vol] 8.9 mg/dL Normal 8.5-9.9 [facility] Comment on above: Order Comment: Daja ction has been rescheduled by HERAM at 07/02/2022 05:49 Reason: Come back last per rn fouzia Performed By: #### B MPX #### [facility] [address] [place] [address] Chloride [Moles/Vol] 100 mmol/L Normal 95-107 [facility] Comment on above: Order Comment: Daja ction has been rescheduled by HERAM at 07/02/2022 05:49 Reason: Come back last per rn fouzia Performed By: #### B MPX #### [facility] [address] [place] [address] CO2 [Moles/Vol] 27 mmol/L Normal 20-31 [facility] Comment on above: Order Comment: Daja ction has been rescheduled by HERAM at 07/02/2022 05:49 Reason: Come back last per rn fouzia Performed By: #### B MPX #### [facility] [address] [place] [address] Creatinine [Mass/Vol] 0.61 mg/dL Normal 0.50-0.90 [facility] Comment on above: Order Comment: Daja ction has been rescheduled by HERAM at 07/02/2022 05:49 Reason: Come back last per rn fouzia Performed By: #### B MPX #### [facility] [address] [place] [address] GFR >60.0 Normal >60 [facility] Comment on above: Order Comment: Daja ction has been rescheduled by HERAM at 07/02/2022 05:49 Reason: Come back last per kip reinoso Result Comment: Myra jaxc calculator link [email or web address]/[email or web address]_[email or web address] Effective Jan 25, 2022 [...] MPX #### [facility] [address] [place] [address] Glucose [Mass/Vol] 144 mg/dL Critically high 70-99 [facility] Comment on above: Order Comment: Daja zamarripa has been rescheduled by HERAM at 07/02/2022 05:49 Reason: Come back last per kip reinoso Performed By: #### B MPX #### [facility] [address] [place] [address] Magnesium [Moles/Vol] 4.8 mmol/L Normal 3.4-4.9 [facility] Comment on above: Order Comment: Daja zamarripa has been rescheduled by HERAM at 07/02/2022 05:49 Reason: Come back last per kip reinoso Performed By: #### B MPX #### [facility] [address] [place] [address] Sodium [Moles/Vol] 135 mmol/L Normal 135-144 [facility] Comment on above: Order Comment: Daja ction has been rescheduled by HERAM at 07/02/2022 05:49 Reason: Come back last per kip reinoso Performed By: #### B MPX #### [facility] [address] [place] [address] Urea nitrogen [Mass/Vol] 21 mg/dL Critically high 6-20 [facility] Comment on above: Order Comment: Daja ction has been rescheduled by HERAM at 07/02/2022 05:49 Reason: Come back last per kip reinoso Performed By: #### B MPX #### [facility] [address] [place] [address] Basic Metabolic Panel w/ Ref hillary to MGon 07-02-2022 Anion gap [Moles/Vol] 8 mmol/L Low [facility] Calcium [Mass/Vol] 8.9 mg/dL 8.5 - 9.9 mg/dL [facility] Chloride [Moles/Vol] 100 mmol/L [facility] CO2 [Moles/Vol] 27 mmol/L [facility] Creatinine [Mass/Vol] 0.61 mg/dL 0.50 - 0.90 mg/dL [facility] GFR/1.73 sq M.predicted MDRD (S/P/Bld) [Vol rate/Area] 60 - PINF [facility] Comment on above: Pediatric calculator [...] 144 mg/dL High 70 - 99 mg/dL [facility] Interpretation and review of laboratory results Abnormal [facility] Potassium reflex Magnesium 4.8 [facility] Sodium [Moles/Vol] 135 mmol/L [facility] Urea nitrogen (BldV) [Mass/Vol] 21 mg/dL High 6 - 20 mg/dL [facility] Collection has been rescheduled by VALDO at 07/02/2022 05:49 Reason: Come back last per kip reinoso [facility] CBCon 07-02-2022 Hematocrit (Bld) [Volume fraction] 40.3 % 37.0 - 47.0 % [facility] Hemoglobin (Bld) [Mass/Vol] 12.9 g/dL 12.0 - 16.0 g/dL [facility] Interpretation and review of laboratory results Abnormal [facility] MCH (RBC) [Entitic mass] 25.5 pg Low 27. 0 - 31.3 pg [facility] MCHC (RBC) [Mass/Vol] 32.1 % Low 33.0 - 37.0 % [facility] MCV (RBC) [Entitic vol] 79.6 fL 79.4 - 94.8 fL [facility] Platelet distribution width (Bld) [Ratio] 16.3 % High 11.5 - 14.5 % [facility] Platelets (Bld) [#/Vol] 230 10*3/uL 130 - 400 K/uL [facility] RBC (Bld) [#/Vol] 5.06 10*6/uL [facility] WBC (Bld) [#/Vol] 9.1 10*3/uL 4.8 - 10.8 K/uL [facility] Collection has been rescheduled by VALDO at 07/02/2022 05:49 Reason: Come back last per kip galdamezfouzia [facility] CBC With Platelet No Differe ntialon 07-02-2022 Erythrocyte distribution width (RBC) [Ratio] 16.3 % Critically high 11.5-14.5 [facility] Comment on above: Order Comment: Daja zamarripa has been rescheduled by VALDO at 07/02/2022 05:49 Reason: Come back last per kip reinoso Performed By: #### C BCND #### [facility] [address] [place] [address] Hematocrit (Bld) [Volume fraction] 40.3 % Normal 37.0-47.0 [facility] Comment on above: Order Comment: Daja zamarripa has been rescheduled by VALDO at 07/02/2022 05:49 Reason: Come back last per kip reinoso Performed By: #### C BCND #### [facility] [address] [place] [address] Hemoglobin (Bld) [Mass/Vol] 12.9 g/dL Normal 12.0-16.0 [facility] Comment on above: Order Comment: Daja zamarripa has been rescheduled by HERAM at 07/02/2022 05:49 Reason: Come back last per rn fouzia Performed By: #### C BCND #### [facility] [address] [place] [address] MCH (RBC) [Entitic mass] 25.5 pg Low 27.0-31.3 [facility] Comment on above: Order Comment: Daja zamarripa has been rescheduled by HERAM at 07/02/2022 05:49 Reason: Come back last per rn fouzia Performed By: #### C BCND #### [facility] [address] [place] [address] MCHC 32.1 % Low 33.0-37.0 [facility] Comment on above: Order Comment: Daja zamarripa has been rescheduled by HERAM at 07/02/2022 05:49 Reason: Come back last per rn fouzia Performed By: #### C BCND #### [facility] [address] [place] [address] MCV (RBC) [Entitic vol] 79.6 fL Normal 79.4-94.8 [facility] Comment on above: Order Comment: Daja zamarripa has been rescheduled by HERAM at 07/02/2022 05:49 Reason: Come back last per rn fouzia Performed By: #### C BCND #### [facility] [address] [place] [address] Platelets (Bld) [#/Vol] 230 10*3/uL Normal 130-400 [facility] Comment on above: Order Comment: Daja zamarripa has been rescheduled by HERAM at 07/02/2022 05:49 Reason: Come back last per rn fouzia Performed By: #### C BCND #### [facility] [address] [place] [address] RBC (Bld) [#/Vol] 5.06 10*6/uL Normal 4.20-5.40 [facility] Comment on above: Order Comment: Daja zamarripa has been rescheduled by HERAM at 07/02/2022 05:49 Reason: Come back last per rn fouzia Performed By: #### C BCND #### [facility] [address] [place] [address] WBC (Bld) [#/Vol] 9.1 10*3/uL Normal 4.8-10.8 [facility] Comment on above: Order Comment: Daja zamarripa has been rescheduled by HERAM at 07/02/2022 05:49 Reason: Come back last per rn fouzia Performed By: #### C BCND #### [facility] [address] [place] [address] US DUP UPPER EXTREMITY LEFT VENOUSon 07-02-2022 [facility] No [facility] of [facility]. [facility]AMINATION: VENOUS ULTRASOUND OF THE LEFT [...] normal color flow study and spectral analysis. [facility] RADI[facility] Jean Sifuentes MD - [...] spectral analysis. IMPRESSION: No evidence of DVT. [employer] Phone: [employer] Phone: Radiology Study observation (narrative) [employer] Phone: XR KNEE RIGHT (1-2 VIEWS)on 07-01-2022 [...] [facility] Normal postsurgical appearance [facility] RADIOLOGY EXAMINATION: TWO XRAY VIEWS [...] are intact. Overlying surgical dee are seen [facility] Jean Sifuentes MD - [...] dee are seen IMPRESSION: Normal postsurgical appearance [employer] Work Phone: Radiology Study observation (narrative) [employer] Work Phone: XR KNEE RIGHT (1-2 VIEWS)Ord ered By: Jean Sifuentes on 07-01-2022 [employer] Work Phone: MRSA DNA Probe, Nasalon MRSA, DNA, Nasal Negative NEG [employer] Comment on above: NEGATIVE: MRSA DNA n ot detected by nucleic acid amplification. Results should be used as an adjunct to nosocomial control efforts to identify patients needing enhanced precautions. The test is not intended to identify patients with staphylococcal infections. Results should not be used to guide or monitor treatment for MRSA infections. [employer] [address] [place] [id number] Specimen Description Swab [employer] [facility] MRSA, DNA, Nasalon MRSA, DNA, Nasal Negative [...] guide or monitor treatment for MRSA infections. [employer] [address], [place] [id number] ([phone] Performed By: #### I MRSA #### [facility] [address] [place] [address] EKG 12 LeadOrdered By: Leigh Ann Nash on 06-25-2022 Atrial Rate 73 BPM [employer] Work Phone: P [place] 33 degrees [facility] [employer] Work Phone: P-R Interval 160 ms [employer] Work Phone: Q-T Interval 406 ms [employer] Work Phone: QRS Duration 102 ms [employer] Work Phone: QTc Calculation (Bazett) 447 ms [employer] Work Phone: R [place] 74 degrees [employer] Work Phone: T [place] 65 degrees [employer] Work Phone: Ventricular Rate 73 BPM [facility] [employer] Work Phone: [employer] [employer] Work Phone: EKG 12 Leadon 06-25-2022 Normal sinus rhythm Incomplete right bundle branch block Confirmed by LEIGH ANN NASH ([id number]) on 06/25/2022 6:49:48 PM Leigh Ann Sumner F, DO - 06/25/2022 Normal sinus rhythm Incomplete right bundle branch block Confirmed by LEIGH ANN NASH ([id number]) on 06/25/2022 6:49:48 PM [employer] Work Phone: Established Visit (Orthopaed ic Surgery)on 06-25-2022 Established Visit (Orthopaedic Surgery) Chief Complaint Pre-op RT TK-Revision 07/01/22 @ [facility] History of Present Illness This patient [...] plans on performing outpatient physical therapy at [facility] in [place]. All of the patient's questions and concerns were answered. This note was prepared using voice recognition software. The details of this note are correct and have been reviewed, and corrected to the best of my ability. Some grammatical areas may persist related to the [employer] software Merrill Alejandro PA-C . Active Problems Problems Acute pain of both knees (338.19,719.46) (M25.561,M25.562) Allergies Medication Penicillins Recorded By: Tarsha Murray; 05/18/2022 8:47:33 AM Signatures Electronically signed by : Merrill Alejandro PA-C; Jun 25 2022 2:21PM EST (Author) Normal [facility] Initial Evaluationon 03-0 PT Initial Evaluation [...] today's treatment with some difficulty. Evaluation Code: 72580 PT Eval: Low Complexity, 32 min(s). Resources provided today: education Signatures Electronically signed by : Natali Tyson, PT DPT; Jun 30 2022 10:08AM EST (Author) Normal [employer] APTTon 06-24-2022 aPTT Coag (Bld) [Time] 30.1 s [facility] Comment on above: Effective 02/27/2020: Heparin Therapeutic Range: 64.0 98.0 seconds. [facility] CBC With Platelet and Differ entialon 06-24-2022 Basophils (Bld) [#/Vol] 0.1 10*3/uL Normal 0.0-0.2 [facility] Comment on above: Performed By: #### C BCWD #### [facility] [address] [place] [address] Basophils/100 WBC (Bld) 0.6 % Normal [facility] Comment on above: Performed By: #### C BCWD #### [facility] [address] [place] [address] Eosinophils (Bld) [#/Vol] 0.1 10*3/uL Normal 0.0-0.7 [facility] Comment on above: Performed By: #### C BCWD #### [facility] [address] [place] [address] Eosinophils/100 WBC (Bld) 1.6 % Normal [facility] Comment on above: Performed By: #### C BCWD #### [facility] [address] [place] [address] Erythrocyte distribution width (RBC) [Ratio] 16.4 % Critically high 11.5-14.5 [facility] Comment on above: Performed By: #### C BCWD #### [facility] [address] [place] [address] Hematocrit (Bld) [Volume fraction] 44.4 % Normal 37.0-47.0 [facility] Comment on above: Performed By: #### C BCWD #### [facility] [address] [place] [address] Hemoglobin (Bld) [Mass/Vol] 14.2 g/dL Normal 12.0-16.0 [facility] Comment on above: Performed By: #### C BCWD #### [facility] [address] [place] [address] Lymphocytes (Bld) [#/Vol] 2.3 10*3/uL Normal 1.0-4.8 [facility] Comment on above: Performed By: #### C BCWD #### [facility] [address] [place] [address] Lymphocytes/100 WBC (Bld) 25.8 % Normal [facility] Comment on above: Performed By: #### C BCWD #### [facility] [address] [place] [address] MCH (RBC) [Entitic mass] 25.1 pg Low 27.0-31.3 [facility] Comment on above: Performed By: #### C BCWD #### [facility] [address] [place] [address] MCHC 32.0 % Low 33.0-37.0 [facility] Comment on above: Performed By: #### C BCWD #### [facility] [address] [place] [address] MCV (RBC) [Entitic vol] 78.5 fL Low 79.4-94.8 [facility] Comment on above: Performed By: #### C BCWD #### [facility] [address] [place] [address] Monocytes (Bld) [#/Vol] 0.8 10*3/uL Normal 0.2-0.8 [facility] Comment on above: Performed By: #### C BCWD #### [facility] [address] [place] [address] Monocytes/100 WBC (Bld) 9.4 % Normal [facility] Comment on above: Performed By: #### C BCWD #### [facility] [address] [place] [address] Neutrophils (Bld) [#/Vol] 5.6 10*3/uL Normal 1.4-6.5 [facility] Comment on above: Performed By: #### C BCWD #### [facility] [address] [place] [address] Neutrophils/100 WBC (Bld) 62.6 % Normal [facility] Comment on above: Performed By: #### C BCWD #### [facility] [address] [place] [address] Platelets (Bld) [#/Vol] 281 10*3/uL Normal 130-400 [facility] Comment on above: Performed By: #### C BCWD #### [facility] [address] [place] [address] RBC (Bld) [#/Vol] 5.66 10*6/uL Critically high 4.20-5.40 [facility] Comment on above: Performed By: #### C BCWD #### [facility] [address] [place] [address] WBC (Bld) [#/Vol] 8.9 10*3/uL Normal 4.8-10.8 [facility] Comment on above: Performed By: #### C BCWD #### [facility] [address] [place] [address] CBC with Auto Differentialon 06-24-2022 Basophils (Bld) [#/Vol] 0.1 10*3/uL 0.0 - 0.2 K/uL [facility] Basophils/100 WBC (Bld) 0.6 % B ON [facility] Eosinophils (Bld) [#/Vol] 0.1 10*3/uL 0.0 - 0.7 K/uL [facility] Eosinophils/100 WBC (Bld) 1.6 % [facility] Hematocrit (Bld) [Volume fraction] 44.4 % 37.0 - 47.0 % [facility] Hemoglobin (Bld) [Mass/Vol] 14.2 g/dL 12.0 - 16.0 g/dL [facility] Interpretation and review of laboratory results Abnormal [facility] Lymphocytes (Bld) [#/Vol] 2.3 10*3/uL 1.0 - 4.8 K/uL [facility] Lymphocytes/100 WBC (Bld) 25.8 % [facility] MCH (RBC) [Entitic mass] 25.1 pg Low 27. 0 - 31.3 pg [facility] MCHC (RBC) [Mass/Vol] 32.0 % Low 33.0 - 37.0 % [facility] MCV (RBC) [Entitic vol] 78.5 fL Low 79.4 - 94.8 fL [facility] Monocytes (Bld) [#/Vol] 0.8 10*3/uL 0.2 - 0.8 K/uL [facility] Monocytes/100 WBC (Bld) 9.4 % B ON [facility] Neutrophils Absolute 5.6 K/uL 1.4 - 6 .5 K/uL [facility] Neutrophils/100 WBC (Bld) 62.6 % [facility] Platelet distribution width (Bld) [Ratio] 16.4 % High 11.5 - 14.5 % [facility] Platelets (Bld) [#/Vol] 281 10*3/uL 130 - 400 K/uL [facility] RBC (Bld) [#/Vol] 5.66 10*6/uL High [facility] WBC (Bld) [#/Vol] 8.9 10*3/uL 4.8 - 10.8 K/uL [facility] Comprehensive Metabolic Pane gretel 03-02-2023 Albumin [Mass/Vol] 4.2 g/dL Normal 3.5-4.6 [facility] Comment on above: Performed By: #### U MARIA ELENA #### [facility] [address] [place] [address] ALP [Catalytic activity/Vol] 89 U/L Normal 40-130 [facility] Comment on above: Performed By: #### U MARIA ELENA #### [facility] [address] [place] [address] ALT [Catalytic activity/Vol] 47 U/L Critically high 0-33 [facility] Comment on above: Performed By: #### U MARI AELENA #### [facility] [address] [place] [address] Anion gap [Moles/Vol] 13 mmol/L Normal 9-15 [facility] Comment on above: Performed By: #### U MARIA ELENA #### [facility] [address] [place] [address] AST [Catalytic activity/Vol] 44 U/L Critically high 0-35 [facility] Comment on above: Performed By: #### U MARIA ELENA #### [facility] [address] [place] [address] Bilirubin [Mass/Vol] 0.5 mg/dL Normal 0.2-0.7 [facility] Comment on above: Performed By: #### U MARIA ELENA #### [facility] [address] [place] [address] Calcium [Mass/Vol] 9.2 mg/dL Normal 8.5-9.9 [facility] Comment on above: Performed By: #### U MARIA ELENA #### [facility] [address] [place] [address] Chloride [Moles/Vol] 100 mmol/L Normal 95-107 [facility] Comment on above: Performed By: #### U MARIA ELENA #### [facility] [address] [place] [address] CO2 [Moles/Vol] 26 mmol/L Normal 20-31 [facility] Comment on above: Performed By: #### U MARIA ELENA #### [facility] [address] [place] [address] Creatinine [Mass/Vol] 0.54 mg/dL Normal 0.50-0.90 [facility] Comment on above: Performed By: #### U MARIA ELENA #### [facility] [address] [place] [address] GFR >60.0 Normal >60 [facility] [address] [place] [address] Globulin (S) [Mass/Vol] 3.9 g/dL Critically high 2.3-3.5 [facility] Comment on above: Performed By: #### U MARIA ELENA #### [facility] [address] [place] [address] Glucose [Mass/Vol] 124 mg/dL Critically high 70-99 [facility] Comment on above: Performed By: #### U MARIA ELENA #### [facility] [address] [place] [address] Potassium [Moles/Vol] 4.4 mmol/L Normal 3.4-4.9 [facility] Comment on above: Performed By: #### U MARIA ELENA #### [facility] [address] [place] [address] Protein [Mass/Vol] 8.1 g/dL Critically high 6.3-8.0 [facility] Comment on above: Performed By: #### U MARIA ELENA #### [facility] [address] [place] [address] Sodium [Moles/Vol] 139 mmol/L Normal 135-144 [facility] Comment on above: Performed By: #### U MARIA ELENA #### [facility] [address] [place] [address] Urea nitrogen [Mass/Vol] 14 mg/dL Normal 6-20 [facility] Comment on above: Performed By: #### U MARIA ELENA #### [facility] [address] [place] [address] Albumin [Mass/Vol] 4.2 g/dL 3.5 - 4.6 g/dL [facility] ALP (Bld) [Catalytic activity/Vol] 89 U/L 40 - 130 U/L [facility] ALT [Catalytic activity/Vol] 47 U/L High 0 - 33 U/L [facility] Anion gap [Moles/Vol] 13 mmol/L [facility] AST [Catalytic activity/Vol] 44 U/L High 0 - 35 U/L [facility] Bilirubin [Mass/Vol] 0.5 mg/dL 0.2 - 0 .7 mg/dL [facility] Calcium [Mass/Vol] 9.2 mg/dL 8.5 - 9.9 mg/dL [facility] Chloride [Moles/Vol] 100 mmol/L [facility] CO2 [Moles/Vol] 26 mmol/L [facility] Creatinine [Mass/Vol] 0.54 mg/dL 0.50 - 0.90 mg/dL [facility] GFR/1.73 sq M.predicted MDRD (S/P/Bld) [Vol rate/Area] 60 - PINF [facility] Comment on above: Pediatric calculator [...] 3.9 g/dL High 2.3 - 3.5 g/dL [facility] Glucose [Mass/Vol] 124 mg/dL High 70 - 99 mg/dL [facility] Interpretation and review of laboratory results Abnormal [facility] Potassium [Moles/Vol] 4.4 mmol/L [facility] Protein [Mass/Vol] 8.1 g/dL High 6.3 - 8.0 g/dL [facility] Sodium [Moles/Vol] 139 mmol/L [facility] Urea nitrogen (BldV) [Mass/Vol] 14 mg/dL 6 - 20 mg/dL [facility] Laboratory - Coagulationon 0 06-24-2022 INR Coag (Bld) [Relative time] 1.1 {INR} Normal [facility] Work Phone: Laboratory - Hematology and Cell countson 06-24-2022 Basophils/100 WBC (Bld) 0.6 % Normal [facility] Work Phone: Eosinophils/100 WBC (Bld) 1.6 % Normal [facility] Work Phone: Lymphocytes/100 WBC (Bld) 25.8 % [facility] Work Phone: Monocytes/100 WBC (Bld) 9.4 % [facility] Work Phone: Neutrophils/100 WBC (Bld) 62.6 % Normal [facility] Work Phone: [phone] MRSA, DNA, Nasalon 3 Specimen Description Swab Normal [facility] Comment on above: Performed By: #### I MRSA #### [facility] [address] [place] [address] Microscopic Urinalysison Bacteria, UA FEW Abnormal Negative /HPF [facility] Epithelial Cells, UA 0-2 [facility] Hyaline Casts, UA 0-1 [facility] RBC, UA 0-2 [facility] WBC, UA 3-5 [facility] No Panel Informationon 06-24 Interpretation and review of laboratory results Abnormal [facility] TRACE Abnormal Negative [facility] Work Phone: Negative Normal Negative [facility] Work Phone: 0.2 {E.U./dL} Normal < 2.0 [facility] Work Phone: 30 mg/dL Abnormal Negative [facility] Work Phone: 7.0 1 Normal 5.0-9.0 [facility] Work Phone: Not Indicated Normal [facility] Work Phone: [phone] 1 Normal 1.005-1.03 [facility] Work Phone: Clear Normal [facility] [facility] Work Phone: Yellow Normal Straw/Angelina [facility] Work Phone: 0-2 Normal 0-5 [facility] Work Phone: 3-5 Normal 0-5 [facility] Work Phone: 0-1 Normal 0-5 [facility] Work Phone: FEW Abnormal Negative [facility] Work Phone: [phone] K/uL Normal 130-400 [facility] Work Phone: 16.4 % above high threshold 11.5-14.5 [facility] Work Phone: [phone] 32.0 % below low threshold 33.0-37.0 [facility] Work Phone: [phone] 0.1 K/uL Normal 0.0-0.2 [facility] Work Phone: [phone] 0.8 K/uL Normal 0.2-0.8 [facility] Work Phone: [phone] 2.3 K/uL Normal 1.0-4.8 [facility] Work Phone: [phone] 5.6 K/uL Normal 1.4-6.5 [facility] Work Phone: [phone] 25.1 pg below low threshold 27.0-31.3 [facility] Work Phone: [phone] 78.5 fL below low threshold 79.4-94.8 [facility] Work Phone: [phone] 44.4 % Normal 37.0-47.0 [facility] Work Phone: 14.2 g/dL Normal 12.0-16.0 [facility] Work Phone: 5.66 {M/uL} above high threshold 4.20-5.40 [facility] Work Phone: [phone] 8.9 K/uL Normal 4.8-10.8 [facility] Work Phone: [phone] 14.8 {sec} Normal 12.3-14.9 [facility] Work Phone: 30.1 {sec} Normal 24.4-36.8 [facility] Work Phone: Comment on above: Effective 02/27/2020: Heparin Therapeutic Range: 64.0 ? 98.0 seconds. 4.2 g/dL Normal 3.5-4.6 [facility] Work Phone: [phone] 3.9 g/dL above high threshold 2.3-3.5 [facility] Work Phone: 44 U/L above high threshold 0-35 [facility] Work Phone: [phone] U/L above high threshold 0-33 [facility] Work Phone: 89 U/L Normal 40-130 [facility] Work Phone: [phone] 0.5 mg/dL Normal 0.2-0.7 [facility] Work Phone: [phone] 8.1 g/dL above high threshold 6.3-8.0 [facility] Work Phone: [phone] 9.2 mg/dL Normal 8.5-9.9 [facility] Work Phone: [phone] >60.0 Normal >60 [facility] Work Phone: [phone] Comment on above: Pediatric calculator [email or web address]://www.kidney.org/professionals/kdoqi/gfr_calculator pedEffective [...] [facility] Work Phone: 13 {mEq/L} Normal 9-15 [facility] Work Phone: 26 {mEq/L} Normal 20-31 [facility] Work Phone: 100 {mEq/L} Normal 95-107 [facility] Work Phone: 4.4 {mEq/L} Normal 3.4-4.9 [facility] Work Phone: 139 {mEq/L} Normal 135-144 [facility] Work Phone: Negative Normal NEG [facility] Work Phone: Comment on above: NEGATIVE: MRSA DNA n ot detected by nucleic acid amplification. Results should be used as an adjunct to nosocomial control efforts toidentify patients needing enhanced precautions.The test is not intended to identify patients with staphylococcalinfections. Results should not be used to guide or monitor treatmentfor MRSA infections.[facility] [place] [address] Swab Normal [facility] Work Phone: Partial Thromboplastin Timeo n 06-24-2022 aPTT Coag (Bld) [Time] 30.1 s Normal 24.4-36.8 [facility] Comment on above: Result Comment: Effe ctive 02/27/2020: Heparin Therapeutic Range: 64.0 ? 98.0 seconds. Performed By: #### U MARIA ELENA #### [facility] [address] [place] [address] Prothrombin Timeon 3 INR Coag (PPP) [Relative time] 1.1 {INR} Normal [facility] Comment on above: Performed By: #### P T #### [facility] [address] [place] [address] PT Coag (PPP) [Time] 14.8 s Normal 12.3-14.9 [facility] Comment on above: Performed By: #### P T #### [facility] [address] [place] [address] Protime-INRon 06-24-2022 INR Coag (Bld) [Relative time] 1.1 {INR} [facility] PT Coag (PPP) [Time] 14.8 s [facility] triptap TYPE AND SCREENon 06-24-2022 ABO/Rh Negative [facility] Comment on above: @06/24/22 14:01 by Elaina FISCHER: BACK TYPE CONFIRMED IN TUBE. LMB Confirmation type ne eds to be drawn. [facility] Type and 3 cell Screen OB Ca ptureon 06-24-2022 Type and 3 cell Screen OB Capture PATIENT: PINKY Prince LOC: [place]# : [id number] : 1970 SEX: F ORDERED BY: GILMAR COX ORDERED : 06/24/2022 11:08 COLLECTED: 06/24/2022 11:45 ORDER : [id number] RECEIVED : 06/24/2022 11:45 Confirmation type needs to be drawn. --- TEST NAME RESULT UNITS RANGES ABN FL ST ABORH Capture A NEG F @06/24/22 14:01 by RUDY: BACK TYPE CONFIRMED IN TUBE. LMB Antibody 3 Cell Scrn Captu NEG F -- Normal [facility] Comment on above: Performed By: #### T SO3C #### [facility] [address] [place] [address] Urinalysis with Reflex to Cu ltureon 06-24-2022 Bilirubin Urine Negative Negative [facility] Blood, Urine Negative Negative [facility] Clarity, UA Clear Clear [facility] Color, UA Yellow Straw/Angelina ow [facility] Glucose, Ur Negative Negative mg/dL [facility] Ketones Ql (U) Negative Negative mg/dL [facility] Leukocyte esterase Test strip Ql (U) TRACE Abnormal Negative [facility] Nitrite, Urine Negative Negative [facility] pH, UA 7.0 5.0 - 9.0 [facility] Protein (U) [Mass/Vol] 30 mg/dL Abnormal Negative [facility] Specific Crapo, UA 1.010 1.005 - 1.030 [facility] Urine Reflex to Culture Not Indicated [facility] Urobilinogen, Urine 0.2 [facility] Urinalysis, reflex to cultur gurinder 06-24-2022 Urine Reflexed to Culture Not Indicated Normal [facility] Comment on above: Performed By: #### U AR #### [facility] [address] [place] [address] Bilirubin Ql (U) Negative Normal Negative [facility] Comment on above: Performed By: #### U AR #### [facility] [address] [place] [address] Clarity (U) Clear Normal Clear [facility] Comment on above: Performed By: #### U AR #### [facility] [address] [place] [address] Color (U) Yellow Normal Straw/Angelina [facility] Comment on above: Performed By: #### U AR #### [facility] [address] [place] [address] Glucose Ql (U) Negative Normal Negative [facility] Comment on above: Performed By: #### U AR #### [facility] [address] [place] [address] Hemoglobin Ql (U) Negative Normal Negative [facility] Comment on above: Performed By: #### U AR #### [facility] [address] [place] [address] Ketones Ql (U) Negative Normal Negative [facility] Comment on above: Performed By: #### U AR #### [facility] [address] [place] [address] Leukocyte esterase Test strip Ql (U) TRACE Abnormal Negative [facility] Comment on above: Performed By: #### U AR #### [facility] [address] [place] [address] Nitrite Ql (U) Negative Normal Negative [facility] Comment on above: Performed By: #### U AR #### [facility] [address] [place] [address] pH (U) 7.0 [pH] Normal 5.0-9.0 [facility] Comment on above: Performed By: #### U AR #### [facility] [address] [place] [address] Protein Ql (U) 30 mg/dL Abnormal Negative [facility] Comment on above: Performed By: #### U AR #### [facility] [address] [place] [address] Specific gravity (U) [Rel density] 1.010 Normal 1.005-1.03 [facility] Comment on above: Performed By: #### U AR #### [facility] [address] [place] [address] Urobilinogen Qn (U) 0.2 {Reji'U}/dL Normal < 2.0 [facility] Comment on above: Performed By: #### U AR #### [facility] [address] [place] [address] Urine Microscopicon 06-25-19 23 Urine Bacteria FEW Abnormal Negative [facility] Comment on above: Performed By: #### U MARIA ELENA #### [facility] [address] [place] [address] Urine Epithelial Cells Auto 0-2 Normal 0-5 [facility] Comment on above: Performed By: #### U MARIA ELENA #### [facility] [address] [place] [address] Urine Hyaline Casts Auto 0-1 Normal 0-5 [facility] Comment on above: Performed By: #### U MARIA ELENA #### [facility] [address] [place] [address] Urine RBC Auto 0-2 Normal 0-5 [facility] Comment on above: Performed By: #### U MARIA ELENA #### [facility] [address] [place] [address] Urine WBC Auto 3-5 Normal 0-5 [facility] Comment on above: Performed By: #### U MARIA ELENA #### [facility] [address] [place] [address] BILATERAL KNEE COMPLT, 4 OR MORE VIEWSon 05-18-2022 BILATERAL KNEE COMPLT, 4 OR MORE VIEWS Patient Name: GEETA SHELTON STUDY: BILATERAL KNEE; COMPLT, 4 OR MORE VIEWS; ; 05/18/2022 9:07 am INDICATION: pain M25.561: Acute pain of both knees M25.562:. ACCESSION NUMBER(S): [id number] ORDERING CLINICIAN: ACOSTA SCHAFER FINDINGS: Weightbearing four [...] abnormalities Electronically signed by: ACOSTA SCHAFER MD [facility] Initial Visit (Orthopaedic S urgery)on 05-18-2022 Initial Visit (Orthopaedic Surgery) Diagnoses/Problems Assessed Acute pain of both knees (338.19,719.46) (M25.561,M25.562) Orders Acute pain of both knees Xray Knee Bilateral, Complete, 4 or More Views; Status:Resulted - Preliminary; Done: [id number] 09:07AM Radiologist to Determine Optimal Study : [...] voice recognition (more content not included)... Normal [facility] 05-18-2022 XR Knee 4 Views Normal -[facility] Work Phone: Albumin [Mass/volume] in Ser um or PlasmaOrdered By: Elizabeth Alvarado on 05-07-2022 Albumin [Mass/Vol] 3.9 g/dL 3.2-5.5 [facility] Alkaline phosphatase [Enzyma tic activity/volume] in Serum or PlasmaOrdered By: Elizabeth Alvarado on 05-07-2022 ALP [Catalytic activity/Vol] 83 U/L 32-92 [facility] Aspartate aminotransferase [ Enzymatic activity/volume] in Serum or PlasmaOrdered By: Elizabeth Alvarado on 05-07-2022 AST [Catalytic activity/Vol] 56 U/L 10-42 [facility] Basophils Auto (Bld) [#/Vol] Ordered By: Elizabeth Alvarado on 05-07-2022 Basophils (Bld) [#/Vol] 0.1 10*3/uL 0.0-0.2 [facility] Basophils/100 WBC Auto (Bld) Ordered By: Elizabeth Alvarado on 05-07-2022 Basophils/100 WBC (Bld) 0.7 % . [facility] Bilirubin.total [Mass/volume ] in Serum or PlasmaOrdered By: Elizabeth Alvarado on 05-07-2022 Bilirubin [Mass/Vol] 0.6 mg/dL 0.3-1.2 [facility] Calcium [Mass/volume] in Ser um or PlasmaOrdered By: Elizabeth Alvarado on 05-07-2022 Calcium [Mass/Vol] 9.1 mg/dL 8.2-10.2 [facility] Carbon dioxide, total [Moles /volume] in Serum or PlasmaOrdered By: Elizabeth Alvarado on 05-07-2022 CO2 [Moles/Vol] 28.1 mmol/L 22.0-30.0 [facility] Chloride [Moles/volume] in S hugo or PlasmaOrdered By: Elizabeth Alvarado on 05-07-2022 Chloride [Moles/Vol] 100 mmol/L 95-114 [facility] Cholesterol [Mass/volume] in Serum or PlasmaOrdered By: Elizabeth Alvarado on 05-07-2022 Cholesterol [Mass/Vol] 181 mg/dL 140-200 [facility] Comment on above: Chol less than 200 m g/dl low riskChol 201-239 mg/dl borderline riskChol 240 mg/dl and greater high risk Cholesterol in LDL Calc [Mas s/Vol]Ordered By: Elizabeth Alvarado on 05-07-2022 Cholesterol in LDL [Mass/Vol] 102 mg/dL 0-100 [facility] Comment on above: LDL ATP III CLASSIFI CATIONLDL less than 100 mg/dL OptimalLDL 100-129 mg/dL Near or above optimalLDL 130-159 mg/dL Borderline highLDL 160-189 mg/dL HighLDL greater than 189 mg/dL Very high Cholesterol in VLDL Calc [Ma ss/Vol]Ordered By: Elizabeth Alvarado on 05-07-2022 Cholesterol in VLDL [Mass/Vol] 20 mg/dL [facility] Creatinine and Glomerular fi ltration rate.predicted panel (S/P/Bld)Ordered By: Elizabeth Alvarado on 05-07-2022 Creatinine [Mass/Vol] 0.65 mg/dL 0.44-1.03 [facility] Eosinophils Auto (Bld) [#/Vo l]Ordered By: Elizabeth Alvarado on 05-07-2022 Eosinophils (Bld) [#/Vol] 0.1 10*3/uL 0.0-0.45 [facility] Eosinophils/100 WBC Auto (Bl d)Ordered By: Elizabeth Alvarado on 05-07-2022 Eosinophils/100 WBC (Bld) 1.8 % . [facility] Erythrocyte distribution wid th Auto (RBC) [Ratio]Ordered By: Elizabeth Alvarado on 05-07-2022 Erythrocyte distribution width (RBC) [Ratio] 17.8 % 11.9-15.3 [facility] Estimated glomerular filtrat ion rate (GFR) non- AmericanOrdered By: Elizabeth Alvarado on 05-07-2022 GFR/1.73 sq M.predicted among non-blacks MDRD (S/P/Bld) [Vol rate/Area] > 60 mL/Min [facility] Globulin Calc (S) [Mass/Vol] Ordered By: Elizabeth Alvarado on 05-07-2022 Globulin (S) [Mass/Vol] 3.7 g/dL [facility] Glucose [Mass/volume] in Ser um or PlasmaOrdered By: Elizabeth Alvarado on 05-07-2022 Glucose [Mass/Vol] 137 mg/dL 70-100 [facility] Comment on above: ADA recommended refe rence rangeRandom Glucose Reference Range is dependent on time and content of last meal. Glucose of more than 200 mg/dL in a nonstressed, ambulatory subject supports the diagnosis of Diabetes Mellitus. Hematocrit Auto (Bld) [Volum e fraction]Ordered By: Elizabeth Alvarado on 05-07-2022 Hematocrit (Bld) [Volume fraction] 45.4 % 34.0-46.4 [facility] Hemoglobin [Mass/volume] in BloodOrdered By: Elizabeth Alvarado on 05-07-2022 Hemoglobin (Bld) [Mass/Vol] 14.1 g/dL 11.8-15.4 [facility] Leukocytes [#/volume] correc silverio for nucleated erythrocytes in Blood by Automated counOrdered By: Elizabeth Alvarado on 05-07-2022 WBC corrected for nucl RBC Auto (Bld) [#/Vol] 7.9 10*3/uL 3.8-11.6 [facility] Lymphocytes Auto (Bld) [#/Vo l]Ordered By: Elizabeth Alvarado on 05-07-2022 Lymphocytes (Bld) [#/Vol] 2.4 10*3/uL 1.00-4.8 [facility] Lymphocytes/100 WBC Auto (Bl d)Ordered By: Elizabeth Alvarado on 05-07-2022 Lymphocytes/100 WBC (Bld) 30.9 % . [facility] MCH Auto (RBC) [Entitic mass ]Ordered By: Elizabeth Alvarado on 05-07-2022 MCH (RBC) [Entitic mass] 24.6 pg 24.7-34.3 [facility] MCHC Auto (RBC) [Mass/Vol]Or dered By: Elizabeth Alvarado on 05-07-2022 MCHC (RBC) [Mass/Vol] 31.0 g/dL 32.0-35.0 [facility] MCV Auto (RBC) [Entitic vol] Ordered By: Elizabeth Alvarado on 05-07-2022 MCV (RBC) [Entitic vol] 79.4 fL 80-100 [facility] Monocytes Auto (Bld) [#/Vol] Ordered By: Elizabeth Alvarado on 05-07-2022 Monocytes (Bld) [#/Vol] 0.7 10*3/uL 0.0-0.8 [facility] Monocytes/100 WBC Auto (Bld) Ordered By: Elizabeth Alvarado on 05-07-2022 Monocytes/100 WBC (Bld) 9.3 % . [facility] Neutrophils Auto (Bld) [#/Vo l]Ordered By: Elizabeth Alvarado on 05-07-2022 Neutrophils (Bld) [#/Vol] 4.5 10*3/uL 1.8-7.7 [facility] Neutrophils/100 WBC Auto (Bl d)Ordered By: Elizabeth Alvarado on 05-07-2022 Neutrophils/100 WBC (Bld) 57.3 % . [facility] No Panel InformationOrdered By: Elizabeth Alvarado on 05-07-2022 Estimated GFR () > 60 mL/Min [facility] Comment on above: GFR estimated refere nce range: According to KDOQI guidelines, <60 ml/min/1.73m2 is sufficient to diagnose a patient with chronic kidney disease. Pharmacy Creatinine Clearance (Chem N/A [facility] Nucleated erythrocytes [Pres ence] in Blood by Automated countOrdered By: Elizabeth Alvarado on 05-07-2022 Nucleated RBC Auto Ql (Bld) 0.1 /100{WBC} 0-0.5 [facility] Platelet mean volume Auto (B ld) [Entitic vol]Ordered By: Elizabeth Alvarado on 05-07-2022 Platelet mean volume (Bld) [Entitic vol] 9.4 fL 6.3-10.7 [facility] Platelets Auto (Bld) [#/Vol] Ordered By: Elizabeth Alvarado on 05-07-2022 Platelets (Bld) [#/Vol] 242 10*3/uL 150-450 [facility] Potassium [Moles/volume] in Serum or PlasmaOrdered By: Elizabeth Alvarado on 05-07-2022 Potassium [Moles/Vol] 4.3 mmol/L 3.5-5.1 [facility] Protein [Mass/volume] in Ser um or PlasmaOrdered By: Elizabeth Alvarado on 05-07-2022 Protein [Mass/Vol] 7.6 g/dL 6.1-7.9 [facility] RBC Auto (Bld) [#/Vol]Ordere d By: Elizabeth Alvarado on 05-07-2022 RBC (Bld) [#/Vol] 5.72 10*6/uL 3.60-5.00 [facility] Serum or plasma alanine ulloa otransferase measurement without P-5'-P (enzymatic activiOrdered By: Elizabeth Alvarado on 05-07-2022 ALT No additional P-5'-P [Catalytic activity/Vol] 61 U/L 10-60 [facility] Serum or plasma albumin/glob ulin mass ratioOrdered By: Elizabeth Alvarado on 05-07-2022 Albumin/Globulin [Mass ratio] 1.1 {ratio} [facility] Serum or plasma anion gap de terminationOrdered By: Elizabeth Alvarado on 05-07-2022 Anion gap [Moles/Vol] 11.2 mmol/L 6.0-15.0 [facility] Serum or plasma high density lipoprotein (HDL) cholesterol measurementOrdered By: Elizabeth Alvarado on 05-07-2022 Cholesterol in HDL [Mass/Vol] 58 mg/dL 35-85 [facility] Comment on above: HDL CHOL ATP-III CLA SSIFICATION Cardiovascular RiskHDL > or equal to 60 mg/dL LOWHDL < 40 mg/dL HIGH Serum or plasma total choles terol/high density lipoprotein (HDL) cholesterol mass ratOrdered By: Elizabeth Alvarado on 05-07-2022 Cholesterol.total/Choles terol in HDL [Mass ratio] 3.1 {ratio} <5.0 [facility] Sodium [Moles/volume] in Ser um or PlasmaOrdered By: Elizabeth Alvarado on 05-07-2022 Sodium [Moles/Vol] 135 mmol/L 136-146 [facility] TSH DL <= 0.005 mIU/L QnOrde red By: Elizabeth Alvarado on 05-07-2022 TSH Qn 4.21 m[IU]/L 0.45-5.33 [facility] Triglyceride [Mass/volume] i n Serum or PlasmaOrdered By: Elizabeth Alvarado on 05-07-2022 Triglyceride [Mass/Vol] 103 mg/dL 35-149 [facility] Comment on above: TRIG ATP III CLASSIF ICATIONTRIG less than 150 mg/dL NormalTRIG 150-199 mg/dL Borderline highTRIG 200-500 mg/dL High TRIG greater than 500 mg/dL Very highStandard traceable to the Center for Disease Conrtrol and Prevention (CDC) test method. Urea nitrogen [Mass/volume] in Serum or PlasmaOrdered By: Elizabeth Alvarado on 05-07-2022 Urea nitrogen [Mass/Vol] 14 mg/dL 9-23 [facility] WBC Auto (Bld) [#/Vol]Ordere d By: Elizabeth Alvarado on 05-07-2022 WBC (Bld) [#/Vol] 7.9 10*3/uL 3.8-11.6 [facility] Basophils Auto (Bld) [#/Vol] Ordered By: Tyler Villeda on 04-13-2022 Basophils (Bld) [#/Vol] 0.1 10*3/uL 0.0-0.2 [facility] Basophils/100 WBC Auto (Bld) Ordered By: Tyler Villeda on 04-13-2022 Basophils/100 WBC (Bld) 0.6 % . [facility] C reactive protein [Mass/vol ume] in Serum or PlasmaOrdered By: Tyler Villeda on 04-13-2022 CRP [Mass/Vol] 2.1 mg/dL 0.0-1.0 [facility] Eosinophils Auto (Bld) [#/Vo l]Ordered By: Tyler Villeda on 04-13-2022 Eosinophils (Bld) [#/Vol] 0.2 10*3/uL 0.0-0.45 [facility] Eosinophils/100 WBC Auto (Bl d)Ordered By: Tyler Villeda on 04-13-2022 Eosinophils/100 WBC (Bld) 2.0 % . [facility] Erythrocyte distribution wid th Auto (RBC) [Ratio]Ordered By: Tyler Villeda on 04-13-2022 Erythrocyte distribution width (RBC) [Ratio] 17.6 % 11.9-15.3 [facility] Erythrocyte sedimentation ra te by Photometric methodOrdered By: Tyler Villeda on 04-13-2022 ESR Photometric method (d) [Velocity] 54 mm/hr 0-29 [facility] Hematocrit Auto (Bld) [Volum e fraction]Ordered By: Tyler Villeda on 04-13-2022 Hematocrit (Bld) [Volume fraction] 44.4 % 34.0-46.4 [facility] Hemoglobin [Mass/volume] in BloodOrdered By: Tyler Villeda on 04-13-2022 Hemoglobin (Bld) [Mass/Vol] 14.3 g/dL 11.8-15.4 [facility] Leukocytes [#/volume] correc silverio for nucleated erythrocytes in Blood by Automated counOrdered By: Tyler Villeda on 04-13-2022 WBC corrected for nucl RBC Auto (Bld) [#/Vol] 8.6 10*3/uL 3.8-11.6 [facility] Lymphocytes Auto (Bld) [#/Vo l]Ordered By: Tyler Villeda on 04-13-2022 Lymphocytes (Bld) [#/Vol] 2.9 10*3/uL 1.00-4.8 [facility] Lymphocytes/100 WBC Auto (Bl d)Ordered By: Tyler Villeda on 04-13-2022 Lymphocytes/100 WBC (Bld) 33.6 % . [facility] MCH Auto (RBC) [Entitic mass ]Ordered By: Tyler Villeda on 04-13-2022 MCH (RBC) [Entitic mass] 24.9 pg 24.7-34.3 [facility] MCHC Auto (RBC) [Mass/Vol]Or dered By: Tyler Villeda on 04-13-2022 MCHC (RBC) [Mass/Vol] 32.2 g/dL 32.0-35.0 [facility] MCV Auto (RBC) [Entitic vol] Ordered By: Tyler Villeda on 04-13-2022 MCV (RBC) [Entitic vol] 77.4 fL 80-100 [facility] Monocytes Auto (Bld) [#/Vol] Ordered By: Tyler Villeda on 04-13-2022 Monocytes (Bld) [#/Vol] 0.9 10*3/uL 0.0-0.8 [facility] Monocytes/100 WBC Auto (Bld) Ordered By: Tyler Villeda on 04-13-2022 Monocytes/100 WBC (Bld) 10.0 % . [facility] Neutrophils Auto (Bld) [#/Vo l]Ordered By: Tyler Villeda on 04-13-2022 Neutrophils (Bld) [#/Vol] 4.6 10*3/uL 1.8-7.7 [facility] Neutrophils/100 WBC Auto (Bl d)Ordered By: Tyler Villeda on 04-13-2022 Neutrophils/100 WBC (Bld) 53.8 % . [facility] Nucleated erythrocytes [Pres ence] in Blood by Automated countOrdered By: Tyler Villeda on 04-13-2022 Nucleated RBC Auto Ql (Bld) 0.1 /100{WBC} 0-0.5 [facility] Platelet mean volume Auto (B ld) [Entitic vol]Ordered By: Tyler Villeda on 04-13-2022 Platelet mean volume (Bld) [Entitic vol] 9.1 fL 6.3-10.7 [facility] Platelets Auto (Bld) [#/Vol] Ordered By: Tyler Villeda on 04-13-2022 Platelets (Bld) [#/Vol] 296 10*3/uL 150-450 [facility] RBC Auto (Bld) [#/Vol]Ordere d By: Tyler Villeda on 04-13-2022 RBC (Bld) [#/Vol] 5.73 10*6/uL 3.60-5.00 [facility] WBC Auto (Bld) [#/Vol]Ordere d By: Tyler Villeda on 04-13-2022 WBC (Bld) [#/Vol] 8.6 10*3/uL 3.8-11.6 [facility] Serum or plasma follitropin measurement (units/volume)Ordered By: Elizabeth Alvarado on 12-03-2021 Follitropin Qn 18.3 m[IU]/mL [facility] Comment on above: FEMALE NORMALS (JUDIE ENOPAUSE) MID-FOLLICULAR PHASE: 3.9-8.8 mIU/mL MID-CYCLE PEAK: 4.5-22.5 mIU/mL MID-LUTEAL PHASE: 1.8-5.1 mIU/mL FEMALE NORMALS (POSTMENOPAUSE): 16.7-113.6 mIU/mL MALE NORMALS: 1.3-19.3 mIU/mL TSH DL <= 0.005 mIU/L QnOrde red By: Elizabeth Alvarado on 12-03-2021 TSH Qn 4.23 m[IU]/L 0.45-5.33 [facility] Total estrogen measurementOr dered By: Elizabeth Alvarado on 12-03-2021 Estrogen [Mass/Vol] 83 pg/mL . [facility] Comment on above: Prepubertal < 40 Female Cycle: 1-10 Days 16 - 328 11-20 Days 34 - 501 21-30 Days 48 - 350 Post-Menopausal 40 - 244 Performed at: - Lab[address] [id number] [employer] Operator: Virgie Isaac MD, Phone: [phone] Coding Summary.on 01-26-2019 Coding Summary. CODING DATE: 019 FINAL [place] [facility] STATUS: Home (Routine DC) PAYOR: Medicare APC DESCRIPTION 5110 Level 3 Musculoskeletal Procedures ADMIT DX: REASON FOR VISIT DX: M76.61 Achilles tendinitis, right leg FINAL DX: PRINCIPAL: M76.61 Achilles tendinitis, right leg SECONDARY: M24.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, right ankle I10 Essential (primary) hypertension J45.909 Unspecified asthma, uncomplicated K21.9 Gastro-esophageal reflux disease without esophagitis Z79.899 Other residential (current) drug therapy PYMT PROC APC STAT DESCRIPTION DOCTOR NAME DATE 28339 511 J1 Tenotomy, percutaneous, Thuan Travis DPM 01/24/2019 Achilles tendon (separate procedure); general anesthesia RT Right side (used to identify procedures performed on the right side of the body) 90518 Anesthesia for Shahab Almanzar Jr., DO 01/24/2019 [...] Revised Date Saved: 01/26/2019 11:[address] [facility] Inpatient Patient Summaryon 01-24-2019 Inpatient Patient Summary [facility] Clinical Discharge Instructions PERSON INFORMATION Name: GEETA SHELTON PHYSICIANS Admitting Physician: Thuan Travis DPM Attending Physician: Thuan Travis DPM PCP: Nichole Caballero Discharge Diagnosis: Comment: PATIENT EDUCATION INFORMATION Instructions: Post Op Patient Instructions - FT (Custom); Foot Cryocuff Patient Instructions - FT (Custom); Thaddeus - Post Operative Instructions (Revised 12/20/13) (Custom) ([id number]) Medication Leaflets: Follow up: MEDICATION LIST Comment: Normal [facility] Lyteson 01-24-2019 Anion gap [Moles/Vol] 14 mmol/L Normal 6-16 [facility] Comment on above: Performed By: #### 2 855003, 2117807, 8599670, 58325337, 9576646, 4890740 #### [facility] Laboratory [address] [place] [address] Chloride [Moles/Vol] 107 mmol/L Normal 101-111 [facility] Comment on above: Performed By: #### 2 586361, 1792958, 3062241, 46236030, 6986561, 9054613 #### [facility] Laboratory [address] [place] [address] CO2 [Moles/Vol] 23 mmol/L Normal 21-31 [facility] Comment on above: Performed By: #### 2 564637, 3188501, 3678291, 24109286, 3207283, 0810295 #### [facility] Laboratory [address] [place] [address] Potassium [Moles/Vol] 4.9 mmol/L Normal 3.5-5.3 [facility] Comment on above: Performed By: #### 2 442654, 0795606, 4929267, 59141211, 6987744, 6471704 #### [facility] Laboratory [address] [place] [address] Sodium [Moles/Vol] 139 mmol/L Normal 135-145 [facility] Comment on above: Performed By: #### 2 267727, 9504975, 4150021, 35148830, 4249519, 9394592 #### [facility] Laboratory [address] [place] [address] Main OR Intraoperative Recor don 01-24-2019 Main OR Intraoperative Record IntraOp Document Type FT Summary Primary Physician: Thuan Travis DPM Finalized Date/Time: 01/24/19 11:33:24 Pt. Name: GEETA SHELTON/Sex: 1970 Female Med Rec #: [id number] Physician: Thuan Travis DPM Financial #: [id number] Pt. Type: A Room/Bed: [facility] Admit/Disch: 01/24/19 07:58:48 - Institution: Case [...] Entry 2 Entry 3 Case Attendee Thaddeus LACKEY Bhavna Travis DPM, Thuan Stanley RN, CNOR, Cheryl Role Performed Anesthesiologist Surgeon - Primary ORAL HEALTH THERAPIST Donor Relations Officer Time In 01/24/19 08:48:00 01/24/19 09:00:00 [...] Jani AGUILAR, Kallie Yuen RN, Zuly Duarte FRONT OFFICE REPRESENTATIVE, Prashant Panda Role Performed Harness Rigger - Primary Harness Rigger - Other Scrub - Primary Time In [...] Out Thaddeus LACKEY, Bhavna C, Given Participants Thuan Travis DPM, Stocker RN, LUCIOR, Jani Luna RN, Emily A, Schmitz RN, Gerald Veliz FRONT OFFICE REPRESENTATIVE, Prashant M Time Out Complete 01/24/19 08:59:00 [...] Gunter RN, Brown Outcomes Met? Yes DARYA, Bhavna Merritt, Alpa AGUILAR, Zuly Joyce Last Modified By: Kallie Gunter [...] AGUILAR, CNOR, Alpa AGUILAR, Zuly Luna, Gerald FRONT OFFICE REPRESENTATIVE, R, Gerald FRONT OFFICE REPRESENTATIVE, Prashant Panda Outcomes Met? Yes Yes Last [...] to transfer/transport General Comments: REPORT GIVEN TO STREET WORKERRN. Cy PRIDE RN Dressing/Packing FT Pre-Care Text: [...] safely administered during the perioperative period For [facility] please see scanned medication reconcilliation form for medications used at the field during the procedure. Temperature Control Entry 1 Temperature Control BLANKET MISTRAL AIR Quantity 1 Aid TORSO [[id number]][F] Fluid/Dewitt Unit Mistral warming system Setting HIGH/43 Body Site Upper anterior torso Last Modified By: Kallie Gunter RN 01/24/19 08:46:43 Case Comments Finalized By: Maye Silverio CST Document Signatures Signed By: Kallie Gunter RN 01/24/19 09:26 Maye Silverio CST 01/24/19 11:[address] [facility] Main OR PACU I Recordon Main OR PACU I Record PACU Phase I Docum ent Type FT Summary Primary Physician: Thuan Travis DPM Finalized Date/Time: 01/24/19 10:08:45 Pt. Name: GEETA SHELTON/Sex: 1970 Female Med Rec #: [id number] Physician: Thuan Travis DPM Financial #: [id number] Pt. Type: A Room/Bed: Admit/Disch: 01/24/19 07:58:48 [...] By: Swathi Carr RN 01/24/19 10:[address] [facility] Main OR PACU II Recordon Main OR PACU II Record PACU Phase II Doc ument Type FT Summary Primary Physician: Thuan Travis DPM Finalized Date/Time: 01/24/19 13:09:21 Pt. Name: GEETA SHELTON/Sex: 1970 Female Med Rec #: [id number] Physician: Thuan Travis DPM Financial #: [id number] Pt. Type: A Room/Bed: [facility] Admit/Disch: 01/24/19 07:58:48 - Institution: Case [...] Signed By: Keeley Putnam LPN 01/24/19 13:09 [facility] Main OR Preoperative Recordo n 01-24-2019 Main OR Preoperative Record PreOp Document Type FT Summary Primary Physician: Thuan Travis DPM Number: [id number] Finalized Date/Time: 01/24/19 09:12:07 Pt. Name: GEETA SHELTON Austyn/Sex: 1970 Female Med Rec #: [id number] Physician: Thuan Travis DPM Financial #: [id number] Pt. Type: A Room/Bed: [place] [address] Admit/Disch: 01/24/19 07:58:48 - Institution: Case Times [...] By: Kallie Gunter RN 01/24/19 09:[address] [facility] Operative Reporton 10--201 9 Operative Report Date [...] visit. Thuan Travis D.P.M. aek Dictated: 01/24/2019 #[id number] Typed: 01/24/2019 #[id number] cc: Thuan Travis D.P.M. [facility] Comment on above: Result Comment: Elec tronically Signed By: Thuan Travis DPM\.br\Date and Time Signed: 01/24/19 10:24 EDT Patient Education - Texton 1 Patient Education - Text (Inserted Image . Unable to display) [place], [place] Thuan Travis DPM, FACFAS POST OPERATIVE [...] feel free to call the doctor at: [phone] or [phone] Travis paged. ___ Patient signature Date ___ Dr. Anand Sauer DPM, FACFAS Date Revised: 06-02 [facility] Progress Note-Physicianon Progress Note-Physician Patient: GEETA [...] 1 ml. Complications: None. Anesthesia type: General. [facility] Comment on above: Result Comment: Elec tronically Signed By: Thuan Travis DPM\.br\Date and Time Signed: 01/24/19 09:27 EDT Coding Summary.on 01-12-2019 Coding Summary. CODING DATE: 019 FINAL [facility] STATUS: Home (Routine DC) PAYOR: [...] CphT Date Saved: 01/12/2019 11:[address] [facility] BUNon 01-11-2019 Urea nitrogen [Mass/Vol] 29 mg/dL High 5-21 [facility] Comment on above: Performed By: #### 2 927743, 6593625, 9430308, 68465233, 9436995, 7186872 #### [facility] Laboratory [address] [place] [address] CBC w/Indiceson 01-11-2019 Erythrocyte distribution width (RBC) [Ratio] 16.1 % High 10.9-14.2 [facility] Comment on above: Performed By: #### 1 0780195, 1574387, 3231917, 6255278, 2630285 #### [facility] Laboratory [address] [place] [address] Hematocrit (Bld) [Volume fraction] 42.1 % Normal 34.0-46.0 [facility] Comment on above: Performed By: #### 1 5858733, 8990603, 3648224, 1071415, 1029018 #### [facility] Laboratory [address] [place] [address] Hemoglobin (Bld) [Mass/Vol] 13.8 g/dL Normal 12.0-16.0 [facility] Comment on above: Performed By: #### 1 3526219, 9717573, 5965766, 6622955, 5033192 #### [facility] Laboratory [address] [place] [address] MCH (RBC) [Entitic mass] 25.8 pg Low 27.0-34.0 [facility] Comment on above: Performed By: #### 1 1119658, 8483895, 8569593, 7869514, 4634614 #### [facility] Laboratory [address] [place] [address] MCHC (RBC) [Mass/Vol] 32.8 g/dL Low 33.3-35.7 [facility] Comment on above: Performed By: #### 1 9207244, 2945666, 6699465, 5942310, 6916053 #### [facility] Laboratory [address] [place] [address] MCV (RBC) [Entitic vol] 78.5 fL Low 80.0-100.0 [facility] Comment on above: Performed By: #### 1 3747197, 6506138, 5804201, 6507928, 4683993 #### [facility] Laboratory [address] [place] [address] Platelet mean volume (Bld) [Entitic vol] 9.9 fL Normal 6.4-10.8 [facility] Comment on above: Performed By: #### 1 0666197, 7695820, 4510987, 4003011, 9351568 #### [facility] Laboratory [address] [place] [address] Platelets (Bld) [#/Vol] 283.0 E9/L Normal 150. 0-500. 0 [facility] Comment on above: Performed By: #### 1 2198907, 8132539, 4195125, 1646751, 2036575 #### [facility] Laboratory [address] [place] [address] RBC (Bld) [#/Vol] 5.4 E12/L Normal 4.3-5.9 [facility] Comment on above: Performed By: #### 1 4763617, 6261593, 1875003, 3201697, 1280035 #### [facility] Laboratory [address] [place] [address] WBC corrected for nucl RBC Auto (Bld) [#/Vol] 8.6 E9/L Normal 4.0-11.0 [facility] Comment on above: Performed By: #### 1 7551168, 9827580, 8642338, 7130142, 6203375 #### [facility] Laboratory [address] [place] [address] Creatinineon 01-11-2019 Creatinine [Mass/Vol] 1.0 mg/dL Normal 0.5-1.3 [facility] Comment on above: Performed By: #### 2 661902, 9107181, 3452360, 04675395, 3276921, 4050142 #### [facility] Laboratory [address] [place] [address] Glucoseon 01-11-2019 Glucose [Mass/Vol] 95 mg/dL Normal 55-199 [facility] Comment on above: Performed By: #### 1 5980883, 6677739, 6200459, 0950647, 0433894 #### [facility] Laboratory [address] [place] [address] eGFRon 01-11-2019 GFR/1.73 sq M predicted among blacks MDRD (S/P/Bld) [Vol rate/Area] mL/min/{1.73_m2} Normal >=59 [facility] Comment on above: Order Comment: Order added by Discern Expert. Result Comment: eGFR is race adjusted. AA=. Performed By: #### 2 544450, 9064332, 3514746, 51268610, 3971282, 8675853 #### [facility] Laboratory [address] [place] [address] GFR/1.73 sq M predicted among non-blacks MDRD (S/P/Bld) [Vol rate/Area] 59 mL/min/1.73 m2 Normal >=59 [facility] Comment on above: Order Comment: Order added by Discern Expert. Result Comment: Continuous Process [employer] Roaster stefanie kidney disease could be indicated at eGFR's of less than 60 mL/min/1.73m2. Kidney failure is indicated at less than 15 mL/min/1.73m2. Performed By: #### 2 680858, 1622021, 6593912, 83107394, 1209498, 3939238 #### [facility] Laboratory [address] [place] [address] Coding Summary.on 12-15-2018 Coding Summary. CODING DATE: 019 FINAL [facility] STATUS: Home (Routine DC) PAYOR: [...] CphT Date Saved: 12/15/2018 01:[address] [facility] BUNon 12-14-2018 Urea nitrogen [Mass/Vol] 19 mg/dL Normal 5-21 [facility] Comment on above: Performed By: #### 2 956393, 0206931, 6603023, 11935441, 2969677, 2962563 #### [facility] Laboratory [address] [place] [address] CBC w/Indiceson 12-14-2018 Erythrocyte distribution width (RBC) [Ratio] 17.1 % High 10.9-14.2 [facility] Comment on above: Performed By: #### 2 098997, 1605100, 6490271, 09960158, 6707723, 2059127 #### [facility] Laboratory [address] [place] [address] Hematocrit (Bld) [Volume fraction] 41.5 % Normal 34.0-46.0 [facility] Comment on above: Performed By: #### 2 344308, 9612460, 4161024, 07289337, 3477852, 8794443 #### [facility] Laboratory [address] [place] [address] Hemoglobin (Bld) [Mass/Vol] 13.2 g/dL Normal 12.0-16.0 [facility] Comment on above: Performed By: #### 2 887205, 8598647, 3133149, 93793360, 9621138, 0451746 #### [facility] Laboratory [address] [place] [address] MCH (RBC) [Entitic mass] 25.0 pg Low 27.0-34.0 [facility] Comment on above: Performed By: #### 2 985621, 4596111, 5079023, 60392851, 3564612, 8104475 #### [facility] Laboratory [address] [place] [address] MCHC (RBC) [Mass/Vol] 31.7 g/dL Low 33.3-35.7 [facility] Comment on above: Performed By: #### 2 521714, 9641159, 8989095, 41653738, 6710557, 7358683 #### [facility] Laboratory [address] [place] [address] MCV (RBC) [Entitic vol] 78.7 fL Low 80.0-100.0 F [facility] Comment on above: Performed By: #### 2 011234, 5819877, 6776147, 37769951, 7482860, 2487561 #### [facility] Laboratory [address] [place] [address] Platelet mean volume (Bld) [Entitic vol] 9.4 fL Normal 6.4-10.8 [facility] Comment on above: Performed By: #### 2 039927, 3562343, 6907432, 92029172, 9113965, 1914278 #### [facility] Laboratory [address] [place] [address] Platelets (Bld) [#/Vol] 268.0 E9/L Normal 150. 0-500. 0 [facility] Comment on above: Performed By: #### 2 394696, 1140731, 7807885, 75727887, 0597654, 2846221 #### [facility] Laboratory [address] [place] [address] RBC (Bld) [#/Vol] 5.3 E12/L Normal 4.3-5.9 [facility] Comment on above: Performed By: #### 2 184398, 0522954, 8263741, 57443971, 6306862, 7693395 #### [facility] Laboratory [address] [place] [address] WBC corrected for nucl RBC Auto (Bld) [#/Vol] 10.6 E9/L Normal 4.0-11.0 [facility] Comment on above: Performed By: #### 2 440048, 4462381, 6045330, 67044299, 6507660, 6369026 #### [facility] Laboratory [address] [place] [address] Creatinineon 12-14-2018 Creatinine [Mass/Vol] 0.7 mg/dL Normal 0.5-1.3 [facility] Comment on above: Performed By: #### 2 536513, 1671865, 8542199, 74721755, 8903146, 8492251 #### [facility] Laboratory [address] [place] [address] Glucoseon 12-14-2018 Glucose [Mass/Vol] 138 mg/dL Normal 55-199 [facility] Comment on above: Performed By: #### 2 272333, 3742574, 2888344, 57658982, 3287963, 0718329 #### [facility] Laboratory [address] [place] [address] Lyteson 12-14-2018 Anion gap [Moles/Vol] 17 mmol/L High 6-16 [facility] Comment on above: Performed By: #### 2 096821, 5022560, 8945868, 05471142, 0753270, 7745146 #### [facility] Laboratory [address] [place] [address] Chloride [Moles/Vol] 95 mmol/L Low 101-111 [facility] Comment on above: Performed By: #### 2 603729, 8946117, 9701229, 10269487, 8965480, 4877190 #### [facility] Laboratory [address] [place] [address] CO2 [Moles/Vol] 26 mmol/L Normal 21-31 [facility] Comment on above: Performed By: #### 2 915026, 0280730, 3580275, 65854759, 9979072, 9001468 #### [facility] Laboratory [address] [place] [address] Potassium [Moles/Vol] 3.9 mmol/L Normal 3.5-5.3 [facility] Comment on above: Performed By: #### 2 154192, 8919588, 4260821, 85843356, 2794992, 9421489 #### [facility] Laboratory [address] [place] [address] Sodium [Moles/Vol] 134 mmol/L Low 135-145 [facility] Comment on above: Performed By: #### 2 533570, 0141354, 4514361, 17043697, 7805107, 6340255 #### [facility] Laboratory [address] [place] [address] XR Chest 2 Viewson 9 XR Chest [...] Green MD Transcribed by: MAGEN Technologist: KRISTYN Thornton [facility] eGFRon 12-14-2018 GFR/1.73 sq M predicted among blacks MDRD (S/P/Bld) [Vol rate/Area] mL/min/{1.73_m2} Normal >=59 [facility] Comment on above: Order Comment: Order added by Discern Expert. Result Comment: eGFR is race adjusted. AA=. Performed By: #### 2 187702, 0318240, 2878742, 27333220, 3005178, 7260454 #### [facility] Laboratory [address] [place] [address] GFR/1.73 sq M predicted among non-blacks MDRD (S/P/Bld) [Vol rate/Area] mL/min/{1.73_m2} Normal >=59 [facility] Comment on above: Order Comment: Order added by Discern Expert. Result Comment: Continuous Process [employer] Roaster stefanie kidney disease could be indicated at eGFR's of less than 60 mL/min/1.73m2. Kidney failure is indicated at less than 15 mL/min/1.73m2. Performed By: #### 2 942326, 9293607, 6294440, 23843664, 0632020, 6112526 #### [facility] Laboratory [address] [place] [address] Vital Signs Date Time Vital Sign Value Performing Clinician Facility 09-30-2023 09:36-0400 Body height 165.1 cm PHYSICIAN [facility] 09-30-2023 09:36-0400 Body mass index (BMI) [Ratio] 46.2 kg/m2 PHYSICIAN [facility] 09-30-2023 09:36-0400 Body temperature 97.6 [degF] PHYSICIAN NO [facility] 09-30-2023 09:36-0400 Body weight 126.09 kg PHYSICIAN NO [facility] 09-30-2023 09:36-0400 Diastolic blood pressure 85 mm[Hg] PHYSICIAN [facility] 09-30-2023 09:36-0400 Heart rate 87 /min PHYSICIAN NO [facility] 09-30-2023 09:36-0400 Respiratory rate 20 /min PHYSICIAN NO [facility] 09-30-2023 09:36-0400 SaO2% (BldA) [Mass fraction] 98 % PHYSICIAN [facility] 09-30-2023 09:36-0400 Systolic blood pressure 139 mm[Hg] PHYSICIAN [facility] 03-02-2023 10:45-0500 Body height 165.1 cm Tyler Jean Other [employer] Other 03-02-2023 10:45-0500 Body mass index (BMI) [Ratio] 44.76 kg/m2 Tyler Jean Other [facility] Other 03-02-2023 10:45-0500 Body temperature 96.7 [degF] Tyler Mcnamaratyler Other [facility] Other 03-02-2023 10:45-0500 Body weight 122.02 kg Tyler Jean Other [facility] Other 03-02-2023 10:45-0500 Diastolic blood pressure 82 mm[Hg] Tyler Ted Other [facility] Other 03-02-2023 10:45-0500 Respiratory rate 18 /min Tyler Mcnamaratyler Other [facility] Other 03-02-2023 10:45-0500 SaO2% (BldA) [Mass fraction] 96 % Tyler Mcnamaratyler Other [facility] Other 03-02-2023 10:45-0500 Systolic blood pressure 136 mm[Hg] Tyler Mcnamaratyler Other [facility] Other 09-21-2022 09:11-0400 Body weight 128.72 kg PARTS PERSON Elizabethshaun Alvarado Work Phone: [facility] 09-21-2022 09:11-0400 Diastolic blood pressure 91 mm[Hg] PARTS PERSON Elizabeth Myerholtz Work Phone: [facility] 09-21-2022 09:11-0400 Heart rate 88 /min PARTS PERSON Elizabeth Myerholtz Work Phone: [facility] 09-21-2022 09:11-0400 Respiratory rate 20 /min PARTS PERSON Elizabeth Myerholtz Work Phone: [facility] 09-21-2022 09:11-0400 SaO2% (BldA) [Mass fraction] 96 % PARTS PERSON Elizabeth Myerholtz Work Phone: [facility] 09-21-2022 09:11-0400 Systolic blood pressure 145 mm[Hg] RHEA Alvarado Work Phone: [facility] 08-16-2022 13:57-0400 Body temperature 98 [degF] RHEA Alvarado Work Phone: [facility] 08-16-2022 13:42-0400 Body height 165.1 cm RHEA Alvarado Work Phone: [facility] 07-03-2022 08:14-0500 Body temperature 97.9 [degF] Acosta Schafer MD Work Phone: [employer] 07-03-2022 08:14-0500 Diastolic blood pressure 70 mm[Hg] Acosta Schafer MD Work Phone: [employer] 07-03-2022 08:14-0500 Heart rate 83 /min Acosta Schafer MD Work Phone: [employer] [facility] 07-03-2022 08:14-0500 Respiratory rate 18 /min Acosta Schafer MD Work Phone: [employer] 07-03-2022 08:14-0500 SaO2% (BldA) [Mass fraction] 98 % Acosta Schafer MD Work Phone: [employer] 07-03-2022 08:14-0500 Systolic blood pressure 129 mm[Hg] Acosta Schafer MD Work Phone: [employer] [facility] 07-02-2022 09:45-0500 Body mass index (BMI) [Ratio] 50.66 kg/m2 Acosta Schafer MD Work Phone: [employer] [facility] 07-02-2022 09:45-0500 Body weight 129.73 kg Acosta Schafer MD Work Phone: [employer] 06-24-2022 11:20-0500 Body height 160 cm Mloz Rn [employer] 06-24-2022 11:20-0500 Body mass index (BMI) [Ratio] 50.79 kg/m2 [facility] 06-24-2022 11:20-0500 Body temperature 97.9 [degF] [facility] 06-24-2022 11:20-0500 Body weight 130.05 kg [facility] 06-24-2022 11:20-0500 Diastolic blood pressure 87 mm[Hg] [facility] 06-24-2022 11:20-0500 Heart rate 73 /min Mloz Rn [facility] [employer] 06-24-2022 11:20-0500 Respiratory rate 16 /min [facility] 06-24-2022 11:20-0500 SaO2% (BldA) [Mass fraction] 98 % [facility] 06-24-2022 11:20-0500 Systolic blood pressure 142 mm[Hg] [facility] 05-18-2022 08:46-0500 Body height 165.1 cm Acosta Schafer MD Work Phone: [facility] Work Phone: 05-18-2022 08:46-0500 Body mass index (BMI) [Ratio] 45.93 kg/m2 Acosta Schafer MD Work Phone: [facility] Work Phone: 05-18-2022 08:46-0500 Body surface area Derived from formula 2.27 m2 Acosta Schafer MD Work Phone: [facility] Work Phone: 05-18-2022 08:46-0500 Body weight 125.19 kg Acosta Schafer MD Work Phone: [facility] Work Phone: Encounters Encounter Date Encounter Type Care Provider Facility Start: 09-30-2023 End: 09-30-2023 ambulatory PHYSICIAN [facility] Work Phone: Start: 09-30-2023 End: 09-30-2023 Patient encounter procedure PHYSICIAN NO [facility] Work Phone: Start: 09-30-2023 Registered Recurring PHYSICIAN NO [facility] Acute Work Phone: Start: 09-30-2023 ambulatory Elizabeth Alvarado F acility:[facility] Start: 09-07-2023 End: 09-07-2023 Patient encounter procedure PHYSICIAN NO [facility] [place] Work Phone: Start: 08-24-2023 End: 08-24-2023 ambulatory RHEA Alvarado Work Phone: [facility] Work Phone: Start: 08-24-2023 End: 08-24-2023 Patient encounter procedure PARTS PERSONNohelia Alvarado Work Phone: [facility] Start: 08-24-2023 End: 08-24-2023 Departed Referred RHEA Alvarado Work Phone: [facility] Start: 05-10-2023 End: 05-10-2023 ambulatory PARTS PERSONNohelia Alvarado Work Phone: [facility] Work Phone: Start: 05-10-2023 End: 05-10-2023 Patient encounter procedure PARTS PERSON Elizabeth Alvarado Work Phone: [facility] Work Phone: Start: 03-02-2023 End: 03-02-2023 ambulatory Tyler Jean Other [facility] Other Start: 03-02-2023 Office outpatient vi sit 25 minutes Tyler Jean [facility] Vascular Surgery Start: 02-14-2023 End: 02-14-2023 ambulatory PARTS PERSONNohelia Alvarado Work Phone: [facility] Work Phone: Start: 02-14-2023 End: 02-14-2023 Patient encounter procedure RHEA Alvarado Work Phone: [facility]-Ultrasound [facility] [place] Work Phone: Start: 01-26-2023 [facility] visit new patient Sindy rubio [facility] Vascular Surgery Start: 01-26-2023 End: 01-26-2023 ambulatory PARTS PERSONNohelia Alvarado Work Phone: [facility] Other Start: 01-26-2023 End: 01-26-2023 Patient encounter procedure RHEA Alvarado Work Phone: [facility]-XRay [facility] [place] Work Phone: Start: 12-29-2022 Patient encounter procedure Acosta Schafer MD Work Phone: [facility] Work Phone: Start: 12-29-2022 ambulatory Provider Pending Facili ty:[id number] Start: 11-25-2022 End: 11-25-2022 Patient encounter procedure RHEA Alvarado Work Phone: [facility]-Respiratory Therapy Work Phone: Start: 09-22-2022 Patient encounter procedure Acosta Schafer MD Work Phone: [facility] Work Phone: Start: 09-22-2022 ambulatory Provider Pending Facili ty:[id number] Start: 09-21-2022 End: 09-21-2022 ambulatory PARTS PERSON Elizabeth Alvarado Work Phone: [facility] Work Phone: Start: 09-21-2022 End: 09-21-2022 Registered Recurring RHEA Johnson Christiano Work Phone: [facility]Cancer Center Work Phone: Start: 08-11-[address] Acosta Alva yaneli Oakman Facility:[id number] Start: 08-04-2022 End: 08-04-2022 Discharged Recurring RHEA Fraserjackie Alvarado Work Phone: [facility]-Physical Therapy [address] Start: 07-23-2022 End: 07-23-2022 ambulatory RHEA Hurley Christiano Work Phone: [facility] Work Phone: Start: 07-23-2022 End: 07-23-2022 Patient encounter procedure RHEA Fraserjackie Alvarado Work Phone: [facility]-Lab [facility] [place] Work Phone: Start: 07-16-2022 Telephone encounter Acosta Crews MD Work Phone: [facility] Work Phone: Start: 07-14-2022 Patient encounter procedure Acosta Schafer MD Work Phone: [facility] Work Phone: Start: 07-14-[address] Acosta Schafer Facility:[id number] Start: 07-07-2022 AUDIT Acosta sow MD Work Phone: [facility] Work Phone: Start: 07-01-2022 ambulatory Provider Pending Facili ty:[id number] Start: 07-01-2022 End: 07-03-2022 Evaluation and management of inpatient ACOSTA SCHFAER [facility] Start: 07-01-2022 SURGNONUH, Provider: Acosta Schafer, Status: Pen, Time: 7:00 AM Natali Tyson PT, DPT Work Phone: [facility] Work Phone: Start: 07-01-2022 End: 07-03-2022 Evaluation and management of inpatient Acosta Schafer MD Work Phone: [facility] Comment on above: 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 Merrill martinez [facility] Facility:[id number] Start: 06-25-2022 Encounter for other preprocedural examination Mr. Merrill Hernandez [place] [facility] Start: 06-24-2022 End: 06-29-2022 ambulatory ACOSTA SCHAFER [facility] Start: 06-24-2022 End: 06-28-2022 Subsequent hospital visit by physician [facility] Start: 05-18-2022 Patient encounter procedure cAosta Schafer MD Work Phone: [facility] Work Phone: Start: 05-18-[address] Acosta Schafer Facility:[id number] Start: 05-07-2022 End: 05-07-2022 Patient encounter procedure RHEA Alvarado Work Phone: [facility]Electro[facility] Work Phone: Start: 04-13-2022 End: 04-13-2022 ambulatory RHEA Alvarado Work Phone: [facility] Work Phone: Start: 04-13-2022 End: 04-13-2022 Patient encounter procedure RHEA Alvarado Work Phone: [facility]-Lab [facility] [place] Start: 12-17-2021 End: 12-17-2021 Patient encounter procedure RHEA Morinsaige Work Phone: [facility]-Nuc Med [facility] [place] Start: 12-07-2021 End: 12-07-2021 Patient encounter procedure RHEA Morinbijupaula Work Phone: [facility]-Ultrasound [facility] [place] Start: 12-03-2021 End: 12-03-2021 Departed Referred RHEA Johnson Christiano Work Phone: [facility] Procedures Date Procedure Procedure Detail Performing Clinician Start: 09-07-2023 Pelvic echography PHYSI CHIQUI NO FAMILY Start: 09-07-2023 Transvaginal echography PHYSICIAN NO FAMILY Start: 05-10-2023 Screening mammograph y of bilateral breasts RHEA Johnson Christiano Work Phone: Start: 02-14-2023 Duplex scan of lower limb veins RHEA Johnson Christiano Work Phone: Start: 01-26-2023 Plain chest X-ray RHEA Johnson Christiano Work Phone: Start: 07-03-2022 BASIC METABOLIC PANE L W/ REFLEX TO MG FOR LOW K Arya Coronado PARTS PERSON - FEATHER WASHER Work Phone: Start: 07-03-2022 Blood count complete automated Arya Coronado PARTS PERSON - FEATHER WASHER Work Phone: Start: 07-02-2022 Dup-scan xtr veins unilateral/limited study Carlos A Hou DO Work Phone: Start: 07-02-2022 BASIC METABOLIC PANE L W/ REFLEX TO MG FOR LOW K Arya Coronado PARTS PERSON - FEATHER WASHER Work Phone: Start: 07-02-2022 Blood count complete automated Arya Coronado PARTS PERSON - FEATHER WASHER Work Phone: Start: 07-01-2022 Radiologic examinati on knee 1/2 views Arya Coronado PARTS PERSON - FEATHER WASHER Work Phone: Start: 07-01-2022 End: 07-01-2022 Revj [...] Start: 12-17-2021 Radionuclide three-p hase bone study PARTS PERSONNohelia Alvarado Work Phone: Start: 12-07-2021 US scan of thyroid RHEA Alvarado Work Phone: Start: 02-01-2019 Anesthesia consultation Start: 01-24-2019 Anesthesia consultation Plan of Treatment Date Care Activity Detail Author Start: 06-29-2023 FUV, Provider: Acosta Schafer, Status: Pen, Time: 2:15 PM FUV, Provider: Acosta Schafer, Status: Pen, Time: 2:15 PM [facility] Work Phone: Start: 02-17-2023 Screening for malign ant neoplasm of colon [facility] Start: 12-29-2022 FUV, Provider: Acosta Schafer, Status: Pen, Time: 1:45 PM FUV, Provider: Acosta Schafer, Status: Pen, Time: 1:45 PM [facility] [place] Work Phone: Start: 08-11-2022 FUV, Provider: Acosta Schafer, Status: Pen, Time: 9:45 AM FUV, Provider: Acosta Schafer, Status: Pen, Time: 9:45 AM [facility] [place] Work Phone: Start: 07-23-2022 [facility] Start: 07-14-2022 POV, Provider: Acosta Schafer, Status: Pen, Time: 9:00 AM POV, Provider: Acosta Schafer, Status: Pen, Time: 9:00 AM [facility] [place] Work Phone: Start: 07-01-2022 End: 07-01-2022 Admission to same day surgery center 07/01/2022 Surgery IP Unit Acosta Schafer MD [id number] [place] [address] RIGHT KNEE RIGHT TOTAL KNEE REVISION INSTRUMENTATION ANTONELLA FEMORAL & SCIATIC BLOCK [facility] OR Comment on above: RIGHT KNEE RIGHT TOT AL KNEE REVISION INSTRUMENTATION ANTONELLA FEMORAL & SCIATIC BLOCK Start: 07-01-2022 End: 07-01-2022 Revj total knee arthrp w/wo algrft 1 component KNEE TOTAL ARTHROPLASTY REVISION Loosening of unicondylar knee replacement (HCC) 07/01/2022 10:50 AM [facility] Start: 07-01-2022 Subsequent hospital visit by physician 07/01/2022 Hospital Encounter IP Unit Acosta Schafer MD [address] [place] [address] [facility] Start: 07-01-2022 SURGNON, Provider: Acosta Schafer, Status: Pen, Time: 7:00 AM SURGNON, Provider: Acosta Schafer, Status: Pen, Time: 7:00 AM [facility] [place] Work Phone: Start: 06-25-2022 PREADMIT, Provider: Mrerill Alejandro, Status: Pen, Time: 1:45 PM PREADMIT, Provider: Merrill Alejandro, Status: Pen, Time: 1:45 PM [facility] Work Phone: Start: 06-25-2022 [id number], Provider : Natali Tyson, Status: Pen, Time: 1:00 PM [id number], Provider: Natali Tyson, Status: Pen, Time: 1:00 PM [facility] Work Phone: Start: 06-24-2022 Annual Wellness Visi t (AWV) Annual Wellness Visit (AWV) [facility] Start: 12-17-2021 Radionuclide three-p hase bone study NM bone 3 phase [facility] Start: 12-17-2021 End: 12-17-2021 Patient encounter procedure Departed [facility]-Nuc Med [facility] [place] Start: 12-07-2021 US scan of thyroid US thyroid [facility] Start: 12-07-2021 End: 12-07-2021 [facility] [place] Start: 11-23-2021 Influenza vaccination Flu vaccine (# 1) [facility] Start: 05-18-2021 COVID-19 Vaccine (4 - Booster for Moderna series) COVID-19 Vaccine (4 - Booster for Moderna series) [facility] Start: 02-23-2018 Screening for malign ant neoplasm of breast Breast cancer screen [facility] Start: 02-23-2018 Shingles vaccine (1 of 2) Shingles v accine (1 of 2) [facility] Start: 02-23-2013 Screening for malign ant neoplasm of colon [facility] Start: 2008 Lipid panel Lipids [facility] Start: 02-23-2003 Diabetes screen Diabetes screen [facility] Start: 02-23-1998 Screening for malign ant neoplasm of cervix [facility] Start: 02-23-1989 Screening for malign ant neoplasm of cervix Pap smear [facility] Start: 02-23-1987 DTaP/Tdap/Td vaccine (1 - Tdap) DTaP/Tdap/Td vaccine (1 - Tdap) [employer] Start: 02-23-1986 Hepatitis C screening Hepatitis C sc reen [facility] Start: 02-23-1983 HIV screening HIV screen [email or web address] Start: 1980 Depression Screen Depression Screen [facility] [employer] Start: 1970 COVID-19 Vaccine (#1) COVID-19 Vacci ne (#1) [employer] End: 07-04-2022 Basic Metabolic Panel w/ Reflex to MG Basic Metabolic Panel w/ Reflex to MG Lab Routine Daily for 3 Days starting 07/02/2022 until 07/04/2022, 2 completed [employer] Phone: Comment on above: Daily for 3 Days sta rting 07/02/2022 until 07/04/2022, 2 completed End: 07-04-2022 CBC panel - Blood by Automated count CBC Lab Routine Daily for 3 Days starting 07/02/2022 until 07/04/2022, 2 completed [employer] Phone: Comment on above: Daily for 3 Days sta rting 07/02/2022 until 07/04/2022, 2 completed Comprehensive metabo lic 2000 panel - Serum or Plasma [facility] Comprehensive metabo lic 2000 panel - Serum or Plasma [facility] IgA [Mass/volume] in Serum or Plasma [facility] IgG [Mass/volume] in Serum or Plasma [facility] IgM [Mass/volume] in Serum or Plasma [facility] Oxygen therapy [[facility] Data Set] Initiate Oxygen Therapy Protocol Respiratory Care Routine Daily until discontinued starting 07/01/2022 [facility] [employer] Phone: Comment on above: Daily until disconti nued starting 07/01/2022 Spirometry panel Incentive tonja metry Respiratory Care Routine Every 2hr while awake until discontinued starting 07/01/2022 [facility] [employer] Phone: Comment on above: Every 2hr while awak e until discontinued starting 07/01/2022 [facility] Immunizations Immunization Date Immunization Notes Care Provider Fa cilirowdy 03-16-2016 influenza virus vaccine, unspecified formulation PARTS PERSON Elizabeth Christiano Work Phone: [facility] 03-16-2016 influenza, injectabl e, quadrivalent, preservative free Sindy Davila Other [facility] [employer] Other Payers Date Payer Category Payer Medicaid [id number] 2022 Self-pay [id number] 2014 Private Health Insurance [id number] 1968 Unknown [id number] [id number]. 182 1968 Unknown [id number] 2.16.840.1.471213.3.579.2. 182 1968 Unknown [id number] 2.16.840.1.137224.3.579.2. 356 1968 Unknown [id number] 2.16.840.1.062548.3.579.2. 1067 1968 Unknown [id number] 2.16.840.1.982178.3.579.2. 1067 1968 Unknown [id number] 2.16.840.1.413922.3.579.2. 1067 1968 Unknown [id number] 2.16.840.1.171774.3.579.2. 1067 1968 Unknown [id number] 2.16.840.1.169257.3.579.2. 1067 1968 Unknown [id number] 2.16.840.1.065096.3.579.2. 1067 1968 Unknown [id number] 2.16.840.1.168748.3.579.2. 1068 Medicare Medicare [id number] Medicare [id number] Medicare [place] [employer] Dual Adv JRG [id number] Private Health Insurance Aetna [facility] PFFS 1 [id number] Unknown [facility] DUAL COMPLETE Unknown [id number]. 531 Social History Date Type Detail Facility Start: 06-03-2017 End: 09-21-2022 Tobacco smoking status NHIS Never smoked tobacco (finding) [facility] Start: 1970 Sex Assigned At Female F [facility] Start: 06-24-2022 Tobacco use and exposure Smokeless tobacco non-user [employer] Phone: Start: 06-24-2022 End: 07-02-2022 Alcohol intake Current drinker of alcohol (finding) [employer] Phone: Start: 06-24-2022 Alcohol Comment occasional [employer] Phone: Start: 1970 Sex Assigned At Not on file [facility] [employer] Phone: Start: 06-14-2022 End: 06-24-2022 Exposure to SARS-CoV-2 (event) Not sure [employer] Phone: Sex Assigned At Sex Assigned At [facility] [place] [employer] Other Medical Equipment Procedure Code Equipment Code Equipment Origin al Text Equipment Identifier Dates Cement Bioprep S t - [id number] Start: 07-01-2022 Stem Tib [id number] [id number] Knee Tot Stbl Joey Roberta [employer] - [id number] , [id number] FDA Start: 07-01-2022 Clinical Notes [...] of both lower extremities (ICD-10 - I87.303) [facility] Other 10-04-2023 Evaluation note* Encounter Date Diagnosis [...] Bilateral lower extremity edema (ICD-10 - R60.0) [facility] Other 04-24-2023 Consult note Author Zoey Ramirez [facility] August 16, 2022 3:19pm Note Date/Time August 16, 2022 2:2 0pm [facility] [place] [address] Hem/Onc Consult Note - OP Signed Patient: Geeta Shelton MR#: [id number] : 1970 Acct:[id number] Age/Sex: 52 / F Type: REG RCR Copies to: Elizabeth Alvarado APRN,FEATHER WASHER Lorrie Baig DO~ HPI Date/Time of Service: Date of Service: 08/16/2022 Time of Service: 14:19 Referring Provider/PCP: Referring Provider: Lorrie Baig DO PCP: Elizabeth Alvarado APRN, SUBSTITUTE CROSSING GUARD-C - History of Present Illness Reason for [...] and/or blood disorder. No history of thrombosis. [facility] - Medical History Medical History: Medical [...] Additional comments: Patient: Geeta Shelton MR#: [id number] : 1970 Acct:[id number] Age/Sex: 51 / F ADM Date: 2 Loc: MD Room: Type: [facility] Attending Dr: Tyler Villeda PA-C Copies to: CARLI Noyola Jeffrey S DO~ Ordering Provider: Tyler Villeda PA-C Date of Service: 12/17/21 MD/MD bone 3 phase: M25.562, M25.561 Nuclear medicine [...] the knee hardware bilaterally. This may bepostsurgical. MD/MD bone 3 phase IMPRESSION: Intense uptake of [...] for coordination of care (as documented) and [id number] counseling of patient and/or family. Dictated By: Zoey Ramirez APRN DD/ 1419 Signed By: <Electronically signed by RHEA Ramirez> 08/16/22 6265 [facility] Work Phone: 1(855) 506-757203-11-2023 History of Present illness Narrative* Sosa Poon [...] tape after removal as ordered. Patient has [facility] set up. Knee immobilizer sent [...] Med Surg Daily Treatment Note Facility/Department: [address] Room: W268/W268-01 NAME: Geeta Shelton : 1970 (52 y.o.) [...] BLOCK-DEMETRIA performed by Acosta Schafer MD [place] [facility] Chart Reviewed: Yes Restrictions: Restrictions/Precautions: Fall [...] Recommendations: Continue to assess pending progress Goals Hand Model Goals Senior Living Goal 1: Bed mobility with indep Hand Model Goal 2: Functional transfes with indep Hand Model Goal 3: Amb 50ft with 2ww and indep Hand Model Goal 4: 4 steps with handrail and SBA Senior Living Goal 5: indep with HEP to improve [...] Med Surg Daily Treatment Note Facility/Department: [address] Room: [place] [address] NAME: Geeta Shelton : 1970 (52 y.o.) [...] get up to the bathroom Pain Pain: 310 pain pre/post session OBJECTIVE: Bed mobility Supine [...] Recommendations: Continue to assess pending progress Goals Hand Model Goals Senior Living Goal 1: Bed mobility with indep Senior Living Goal 2: Functional transfes with indep Hand Model Goal 3: Amb 50ft with 2ww and indep Senior Living Goal 4: 4 steps with handrail and SBA Hand Model Goal 5: indep with HEP to improve LE strength and ROM Patient Goals Patient Goals : to go home PLAN General Plan: 2 times a day 7 days a week Safety Devices Type of Devices: All fall risk precautions in place, Call light within reach, Left in bed, Bed alarm in place, Nurse notified [facility] (6 CLICK) BASIC MOBILITY AM-PAC Inpatient Mobility [...] to accomplish the task * Arya Coronado, PARTS PERSON - FEATHER WASHER - 07/02/2022 9:49 AM EST Progress Note [...] replaced withice pack per his order. * ChrissSuresh Aparicio, HAND MODEL - 07/01/2022 5:51 PM EST Images from [...] puffs by inhalation with spacer [] Ipratropium Bradner 0.02% unit dose by aerosol Ipratropium Bradner MDI 2 puffs by inhalation with spacer [] Duoneb (Ipratropium + Albuterol) unit dose by aerosol Ipratropium MDI + Albuterol MDI 2 puffs byinhalation w/spacer MDI to Aerosol [] Albuterol Sulfate MDI Albuterol Sulfate 0.083% unit dose by aerosol [] Levalbuterol MDI 2 puffs by inhalation Levalbuterol 1.25 mg unit dose by aerosol [] Ipratropium Bradner MDI by inhalation Ipratropium Bradner 0.02% unit dose by aerosol [] Combivent (Ipratropium + Albuterol) MDI by inhalation Duoneb (Ipratropium + Albuterol) unit doseby aerosol Treatment Assessment [Frequency/Schedule]: Change frequency to: NO CHANGE per Protocol, P&T, [facility] Points 0 1 2 3 [...] PRN 5. (0-5) Freq Q4prn * Kyrie Sahni, OTR/L - 07/01/2022 4:05 PM EST [facility] OCCUPATIONAL THERAPY EVALUATION - ACUTE NAME: Geeta Shelton : 1970 (52 y.o.) CODE STATUS: Full Code Room: [place] [address] Date of Service: 07/01/2022 Patient Diagnosis(es): Loosening [...] Ambulation Assistance: Independent Transfer Assistance: Independent Active Machinist Wood: Yes Mode of Transportation: Car OBJECTIVE: Orientation [...] How much help for eating meals?: None AM-[facility] Inpatient Daily Activity Raw Score: 19 AM-[facility] Inpatient ADL T-Scale Score : 40.22 [...] Therapy Med Surg Initial Assessment Facility/Department: [address] ORTHO TELE Room: [facility] [address] NAME: Geeta Shelton : 1970 (52 y.o.) [...] Ambulation Assistance: Independent Transfer Assistance: Independent Active Machinist Wood: Yes Mode of Transportation: Car OBJECTIVE: Vision [...] Goals: Patient Goals : to go home Hand Model Goals Senior Living Goal 1: Bed mobility with indep Senior Living Goal 2: Functional transfes with indep Hand Model Goal 3: Amb 50ft with 2ww and indep Hand Model Goal 4: 4 steps with handrail and SBA Senior Living Goal 5: indep with HEP to improve LE strength and ROM [facility] (6 CLICK) BASIC MOBILITY AM-PAC Inpatient Mobility [...] accomplish the task documented in this encounterBON [facility] t[facility]ap Work Phone: 1(563) 218-144703-09-2023 History of Present illness Narrative* History of [...] she will most likely do this at [facility] in [place]. * Physical exam * General: No acute [...] see dictated x-ray report * Procedure * Lily Dale removed Steri-Strips placed without complication * Assessment [...] grammatical areas may persist related to the [employer] software * Merrill Alejandro PA-C * . [facility] Work Phone: 1([phone]) 564-632203-07-2023 Hospital Discharge instructions* Discharge Instructions* Arya Coronado [...] remove dressing and start using instructions above Lily Dale will be removed on post-operative day 14 [...] Hospital Unit/Room#: W268/W268-01 Discharging Unit Phone Number: [phone] Emergency Contact: Extended Emergency Contact Information Primary Emergency Contact: kena travis Relation: Other Past Surgical History: Past Surgical History: Procedure Laterality Date JOINT REPLACEMENT Left knee PARTIAL KNEE ARTHROPLASTY Right REVISION TOTAL KNEE ARTHROPLASTY Right 07/01/2022 RIGHT KNEE RIGHT TOTAL KNEE REVISION INSTRUMENTATION ANTONELLA FEMORAL & SCIATIC BLOCK-DEMETRIA performed by Acosta Schafer MD [place] [facility] [place] Immunization History: There is no immunization [...] Assisted Dressing Assisted Toileting Independent Feeding Independent [employer] Independent Med Delivery whole Wound Care Documentation and Therapy: Negative Pressure Wound Therapy Knee Anterior;Right (Active) Wound Type Surgical 07/02/22 2100 Dressing Type Other (Comment) 07/02/22 0900 Target Pressure (mmHg) 125 07/01/22 1831 Dressing [...] Drainage Amount None 07/02/22 2100 Odor None 07/02/222099 Number of days: 1 [...] applicable) Name: Address: Dialysis Schedule: Phone: Fax: Network Operations Specialist/Animal Biologist signature: {Esignature:[id number]} PHYSICIAN SECTION Prognosis: {Prognosis:9441696271} Condition at Discharge: { Patient Condition:050224886} Rehab Potential (if transferring to Rehab): {Prognosis:1269914438} Recommended Labs or Other Treatments After Discharge: Physician Certification: I certify the above information and transfer of Geeta Shelton is necessary for the continuing treatment of the diagnosis listed and that she requires {[facility]} for {GREATER/LESS:676678638} 30 days. Update Admission H&P: {CHP DME Changes in HandP:699501966} PHYSICIAN SIGNATURE: {Esignature:[id number]} * Attachments The following attachments cannot be sent through Care Everywhere. * Total Knee Replacement Surgery: General Info (Croatian) * Wound: VAC (Vacuum-Assisted Closure) (Croatian) documented in [facility] Work Phone: 1(153) 415-873103-02-2023 History of Present illness Narrative* Sindy Pelaez RN - 06/24/2022 11:10 AM EST Yellow PAT and Dynahex instruction sheet reviewed with patient, who verbalized understanding. documented in this encounterWINTHROP [facility] Work Phone: evaluation noteNo assessment information available [facility] Work Phone: Evaluation note* Diagnosis Status post revision of total knee replacement, right- Primary Status post revision of total replacement of right knee Acute postoperative pain Other acute postoperative pain documented in this encounter [facility] [facility] Work Phone: evaluation note* Diagnosis Onset Date Resolution Status MGUS (monoclonal gammopathy of unknown significance) acute Microcytosis acute Peripheral neuropathy acute [facility] Work Phone: Evaluation note* Diagnosis Onset Date Resolution Status MGUS (monoclonal gammopathy of unknown significance) acute Microcytosis acute Peripheral neuropathy acute MGUS (monoclonal gammopathy of unknown significance) acute [facility] Work Phone: History general Narrative - Reported* Type Description Date Medical History asthma Medical History snoring Medical History Allergic Rhinitis Medical History Essential Hypertension Surgical History Revise/Replace left knee joint Surgical History Varicose Veins 2009 Surgical History Right ankle surgery Hospitalization History See above [facility] Other History of Present illness Narrative* New [...] grammatical areas may persist related to the Booodl software * Acosta Schafer MD * Senior Attending Physician * [facility] * . -[facility] Work Phone: History [...] grammatical areas may persist related to the Booodl software * Acosta Schafer MD * Senior Attending Physician * [facility] * [facility] * . [facility] Work Phone: History [...] will be re-assessed and goals updated. [facility] Work Phone: History of Present illness Narrative* [...] will be re-assessed and goals updated. [facility] Work Phone: History of Present illness Narrative* [...] may persist related to the Dragon software * Acosta Schafer MD * Senior Attending Physician * [facility] [place] * . -[facility] Work Phone: History of [...] grammatical areas may persist related to the Fiverr.comon software * Merrill Aljeandro PA-C * . -[facility] Work Phone: Progress note Author Krzysztof Salazar [facility] September 21, 2022 9:52am Note Date/Time September 21, 2022 9:49a m [facility] [place] [address] Hem/Onc Follow Up Note - OP Signed Patient: Geeta Shelton MR#: [id number] : 1970 Acct:[id number] Age/Sex: 52 / F Type: REG RCR Copies to: Elizabeth Alvarado APRN,ARELI Baig,DO~ Date of Service: 09/21/2022 Time of [...] of gait ataxia and cane usage in thetnst. Patient is ambulatory with no use of cane today; gait is slow but normal/steady. The patient is alert and oriented x3 - Time with Patient Coordination of Care & Counseling Time: Greater than 50% of time spent with patient was for coordination of care (as documented) and [id number] counseling of patient and/or family. [facility] - Medical History Medical History: Medical [...] By: <Electronically signed by Krzysztof Salazar II, > 09/21/22 0952 [facility] Work Phone: Reason for visit Narrative* Initial Evaluation, Pre-Op . * [facility] Work Phone: Reason for visit Narrative* Initial Evaluation, Pre-Op . * Referred by: Dr. Acosta Schafer [facility] Work Phone: Summary Purpose Family History [...] replacement of right knee Born, Arya Harry, [employer] [address] [place] [address] Referral ID Status Reason Start Date Expiration Date V isits Requested Visits Authorized [id number] [facility] Required 07/01/2022 07/01/2023 1 1 Question Answer I certify that I, or a nurse practitioner or physician administrative library assistant working with me, had an in-person encounter with the patient and the reason for the home care services is documented in the clinical note on: 07/01/2022 Will the referring provider be the attending provider for home health? Rennert of attending provider for home health Dr. [...] and content) DATE CREATED AUTHOR 02/01/2019 Rober Renteriaus [facility] DATE CREATED AUTHOR AUTHOR'S ORGANIZ ATION 07/04/2022 [facility] DATE CREATED AUTHOR AUTHOR'S ORGANIZ ATION 07/08/2022 [facility] DATE CREATED AUTHOR AUTHOR'S ORGANIZ ATION 12/30/2022 [facility] DATE CREATED AUTHOR AUTHOR'S ORGANIZ ATION 01/09/2023 [facility] DATE CREATED AUTHOR AUTHOR'S ORGANIZ ATION 06/12/2024 [facility] DATE CREATED AUTHOR AUTHOR'S ORGANIZ ATION 10/04/2024 [facility] Care Teams (unrecognized sec tion and content) Team Status: Active Member Role Status Dates Elizabeth Alvarado APRN [employer]-C Primary Care Provide r Active Team Status: Inactive Member Role Status Dates Elizabeth Alvarado APRN [employer]-René Primar y Care Provider, Attending Provider Active Team Status: Inactive Member Role Status Dates Elizabeth Alvarado APRN [employer]-C Primary Care Provide r Active Lorrie Baig DO Attending Provider Active Team Status: Inactive Member Role Status Dates Elizabeth Alvarado APRN [employer]-C Primary Care Provide r Active Tyler Villeda PA-C Attending Provider Active Team Status: Inactive Member Role Status Dates Elizabeth Alvarado APRN [employer]-C Attending Provider A ctive Services Family [facility] Primary Care Provider Active [place] Department Supervisor Relationship Specialty Start Date End Date Elizabeth Alvarado PCP - General 07/01/22 Team Status: Active Member Role Status Dates Elizabeth Alvarado APRN [employer]-C Primary Care Provide r Active Zoey Ramirez APRN Attending Provider Active Lorrie Baig DO Referring Provider Active Team Status: Inactive Member Role Status Dates Elizabeth Alvarado APRN [employer]-C Primary Care Provide r Active Acosta Schafer Attending Provider Active Team Status: Inactive Member Role Status Dates Elizabeth Alvarado APRN [employer]-C Primary Care Provide r Active Sindy Davila [employer]-C Attending Provider Active Team Status: Inactive Member Role Status Dates Elizabeth Alvarado APRN [employer]-C Attending Provider A ctive Start: August 24, 2023 End: August 24, 2023 Team Status: Active Member Role Status Dates PHYSICIAN NO FAMILY Primary Care Provider Active Team Status: Inactive Member Role Status Dates Elizabeth Alvarado APRN [employer]-C Attending Provider A ctive Start: September 07, 2023 End: September 07, 2023 PHYSICIAN NO FAMILY Primary Care Provider Active Start: September 07, 2023 End: September 07, 2023 Team Status: Active Member Role Status Dates Elizabeth Alvarado APRN [employer]-C Primary Care Provide r Active Start: September 30, 2023 Zoey Ramirez APRN Active Start: September 30, 2023 Lorrie Baig DO Referring Provider Active Sta rt: September 30, 2023 Krzysztof Salazar II, DO Attending Provider Active Start: September 30, 2023 Team Status: Inactive Member Role Status Dates Elizabeth Alvarado APRN [employer]-C Primary Care Provide r Active Start: September [...] content) Specialty Diagnoses / Procedures Referred By Contac t Referred To Contact Diagnoses 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 DE REVJ TOTAL KNEE ARTHRP W/WO ALGRFT 1 COMPONENT DE REVJ TOT KNEE ARTHRP FEM&ENTIRE TIBIAL COMPONE RIGHT KNEE RIGHT TOTAL KNEE REVISION INSTRUMENTATION ANTONELLA FEMORAL & SCIATIC BLOCK Acosta Schafer MD [address] [place] [address] [facility] [address] [place] [address] Referral ID Status Reason Start Date Expiration Date Visits Re quested Visits Authorized [id number] 1 1 Ordered Prescriptions (unrec ognized section [...] Ramos RN)1254 (Given - Provider: Sosa Poon RN)180 (Given - Provider: Sosa Poon RN)2057 (Given [...] 09 (Given - Provider: Sosa Poon RN) budesonide-formoterol (SYMBICORT) 160-4.5 MCG/ACT inhaler 2 puff 2 puff, Inhalation, 2 TIMES DAILY, First dose on Renee 07/01/22 at 2000, Until Discontinued, Substituted for mometasone-formoterol (DULERA). 2037 (Given - Provider: Joy Og RCP) 191 (Not Given - Provider: Joy Og RCP - Reason: Other)1917 (Given - Provider: Joy Og RCP)192 (Not Given - Provider: Joy Og RCP - Reason: Other) 07 (Given - Provider: Lizzie Aponte RCP)1999 (Due) celecoxib (CELEBREX) capsule 200 mg (COMPLETED) 200 mg, Oral, ONCE, 1 dose, On Renee 07/01/22 at 0845, Pre-op, Pre-op (day of surgery) 09 (Given - Provider: Rodolfo Chacko RN) ketorolac (TORADOL) injection 30 mg (COMPLETED) 30 mg, IntraVENous, EVERY 6 HOURS, 3 doses, First dose on Renee 07/01/22 at 1800, Last dose on Tue07/02/22 at 0600, Do not administer for more than 5 days., Post-op 182 (Given - Provider: Ozzie Carpenter RN) 0020 (Given - Provider: Fouzia Ramos, KIP)0629 (Given - Provider: Fouzia Ramos RN) montelukast (SINGULAIR) tablet 10 mg 10 mg, Oral, DAILY, First dose on Renee 07/01/22 at 1545, Until Discontinued 1638 (Given - Provider: Ozzie Carpenter RN) 09 (Given - Provider: Sosa Poon RN) 08 (Given - Provider: Sosa Poon RN) oxyCODONE [...] RN)2057 (Given - Provider: Stefany Valdes RN) 0813 (Given - Provider: Sosa Poon RN)2100 (Due) sennosides-docusate sodium (SENOKOT-S) 8.6-50 MG tablet 1 tablet 1 tablet, Oral, 2 TIMES DAILY, First dose on Renee 07/01/22 at 2100, Until Discontinued, Post-op 223 (Given - Provider: Fouzia Ramos RN) 09 [...] or Central Line = 20 mL/lumen, Post-op 2259 (Given - Provider: Fouzia Ramos RN) 0904 (Held - Provider: Sosa Poon RN - Reason: IV Fluid Infusing)2100 (Given - Provider: Stefany Valdes RN) 0813 (Given - Provider: Sosa Poon RN)2100 (Due) tranexamic acid (LYSTEDA) tablet 1,950 mg (CANCELED) 1,950 mg, Oral, 90 MIN PRE-OP, Starting on Tue07/01/22 at 0824, Until Tue07/01/22 at 1321, To be given 90 minutes [...] 1,950 mg, Oral, ONCE, 1 dose, On Tue07/01/22 at 1700, Do not crush or break. [...] at 250 mL/hr, Administer over 60 Minutes, INJECTION MOLDING MACHINE OPERATOR TO O.R., On Ernee 07/01/22 at 0845, For 1 dose, Pre-op [...] Ozzie Carpenter RN) 1257 (Stopped - Provider: Soas Poon RN - Comment: pt requested fluids to be stopped now, eating and drinking well) lactated ringers IV soln infusion (CANCELED) IntraVENous, at 100 mL/hr, CONTINUOUS, Starting on Renee 07/01/22 at 0945, Pre-op (day of surgery) 1011 (New Bag - Provider: Rodolfo Chacko RN)1100 (NoRateChange - Provider: Yang Mccollum APRN - PULP SCREEN OPERATOR)1311 (Anesthesia Volume Adjustment - Provider: Yang Mccollum APRN - TOMMIE)1324 (Anesthesia Volume Adjustment - Provider: Yang Mccollum APRN - PULP SCREEN OPERATOR) lactated ringers IV soln infusion IntraVENous, at [...] BE BASED ON THE PRIMARY CLINICAL RECORDS. [employer] [facility]. provides no warranty or guarantee of the accuracy or completeness of information in this document.
== END 2024-12-11 09:07 | disposition home or self-care (01) ==
LOC: WC 09:06
PROVIDERS: Visit Provider Physician Assistant
DX: E11.621 Type 2 diabetes mellitus with foot ulcer (principal); L97.415 Non-pressure chronic ulcer of right heel and midfoot with muscle involvement without evidence of necrosis
CPT/HCPCS: 11043; A6021

== ENCOUNTER 2024-12-27 13:49 | Outpatient (OUT) | payer MEDICARE, MEDICAID, SELFPAY ==
--- OUTSIDE RECORDS SUMMARY | 2024-12-27 14:13 | XMS_ITS | CCD ---
Author Organization [facility] Care Team Providers Care Strategic Client Executive Name Role Phone RHEA Alvarado Attending Provider [facility], Services Primary Care Provider RHEA Alvarado Primary Care Provide r CARLI Villeda Attending Provider [phone] RHEA Alvarado Primary Care Provide r CARLI Villeda Attending Provider [phone] Pending Provider Unavailable Unavailable Unavailable Unavailable Unavailable [...] Attending Provider DO Lorrie Baig Referring Provider [phone] [place], [address] Acosta Tyson Attending Un [...] MARII Davila Attending Provider Tyler Jean Unavailable RHEA Alvarado Primary Care Provide r MARII Davila Attending Provider RHEA Alvarado Attending Provider RHEA Alvarado Attending Provider NO FAMILY, PHYSICIAN Primary Care Provider Unava ilable RHEA Alvarado Primary Care Provide r DO Lorrie aBig Referring Provider DO Krzysztof Salazar II Attending Provider Elizabeth Alvarado Primary Care Unavailab Lorrie Villalobos Referring Unavailable Krzysztof Salazar II Attending Unavaila ble Krzysztof Salazar II Admitting Unavaila ble Allergies Allergy Classification Reported Allergen(s) Allergy Type Date of Onset Reaction(s) Facility NSAIDs (1 source) Ibuprofen Drug Allergy 4 Unknown Reaction [facility] Penicillins (antibiotic) (2 sources) Penicillin Drug Allergy 4 hives [facility] (20 sources) Penicillins; Translations: [Penicillins] Allergy to substance 8 Anaphylaxis [facility] (6 sources) Ibuprofen; Translations: [ibuprofen] Drug Allergy 3 Unknown Reaction [facility] (3 sources) Penicillin V Drug Allergy 3 hives [facility] (1 source) Penicillin Drug Allergy 4 [facility] Repository Medications Current Medications Medication Drug Class(es) Dates Sig (Normalized) Sig (Original) acetaminophen 325 mg oral tablet (2 sources) Start: 07-01-2022 acetaminophen (TYLENOL) tablet 650 mg Start: 07-01-2022 End: 07-01-2022 acetaminophen (TYLENOL) tabl et 1,000 mg [id number] 200 actuat albuterol 0.09 mg/actuat metered dose [...] Active docusate sodium 50 mg / sennosides, [facility] 8.6 mg oral tablet (2 sources) Start: [...] disintegrating tablet 4 mg polyethylene glycol 3350 51906 mg powder for oral solution (1 source) [...] Start: 12-03-2021 take 1 capsule by mo [facility] once daily venlafaxine (EFFEXOR XR) 75 MG [...] Inhalation, 2 TIMES DAILY, First dose on [facility] 07/01/22 at 2000, Until Discontinued Substituted [...] Range Facility Outside Recordson 06-11-2024 Outside Records [id number] [facility] Rad - Other Radiology Report on 06-11-2024 Rad - Other Radiology Report [id number] [facility] Rad - Other Radiology Report [id number] [facility] Alanine aminotransferase [En zymatic activity/volume] in Serum or PlasmaOrdered By: Krzysztof Salazar on 09-20-2023 ALT [Catalytic activity/Vol] 33 U/L 7-52 [facility] Albumin [Mass/volume] in Ser um or PlasmaOrdered By: Krzysztof Salazar on 09-20-2023 Albumin [Mass/Vol] 3.8 g/dL 2.9-4.4 [facility] Albumin [Mass/volume] in Ser um or Plasma by Bromocresol green (BCG) dye binding methoOrdered By: Krzysztof Salazar on 09-20-2023 Albumin BCG dye [Mass/Vol] 4.2 g/dL 3.5-5.7 [facility] Alkaline phosphatase [Enzyma tic activity/volume] in Serum or PlasmaOrdered By: Krzysztof Salazar on 09-20-2023 ALP [Catalytic activity/Vol] 79 U/L 34-104 [facility] Aspartate aminotransferase [ Enzymatic activity/volume] in Serum or PlasmaOrdered By: Krzysztof Salazar on 09-20-2023 AST [Catalytic activity/Vol] 30 U/L 13-39 [facility] Basophils Auto (Bld) [#/Vol] Ordered By: Krzysztof Salazar on 09-20-2023 Basophils (Bld) [#/Vol] 0.0 10*3/uL 0.0-0.2 [facility] Basophils/100 WBC Auto (Bld) Ordered By: Krzysztof Salazar on 09-20-2023 Basophils/100 WBC (Bld) 0.5 % . [facility] Bilirubin.total [Mass/volume ] in Serum or PlasmaOrdered By: Krzysztof Salazar on 09-20-2023 Bilirubin [Mass/Vol] 0.6 mg/dL 0.3-1.0 [facility] Calcium [Mass/volume] in Ser um or PlasmaOrdered By: Krzysztof Salazar on 09-20-2023 Calcium [Mass/Vol] 9.7 mg/dL 8.6-10.3 [facility] Carbon dioxide, total [Moles /volume] in Serum or PlasmaOrdered By: Krzysztof Salazar on 09-20-2023 CO2 [Moles/Vol] 32.4 mmol/L 21.0-31.[address] [facility] Chloride [Moles/volume] in S hugo or PlasmaOrdered By: Krzysztof Salazar on 09-20-2023 Chloride [Moles/Vol] 97 mmol/L 98-107 [facility] Creatinine [Mass/volume] in Serum or PlasmaOrdered By: Krzysztof Salazar on 09-20-2023 Creatinine [Mass/Vol] 0.60 mg/dL 0.60-1.20 [facility] Eosinophils Auto (Bld) [#/Vo l]Ordered By: Krzysztof Salazar on 09-20-2023 Eosinophils (Bld) [#/Vol] 0.2 10*3/uL 0.0-0.45 [facility] Eosinophils/100 WBC Auto (Bl d)Ordered By: Krzysztof Salazar on 09-20-2023 Eosinophils/100 WBC (Bld) 2.6 % . [facility] Erythrocyte distribution wid th Auto (RBC) [Ratio]Ordered By: Krzysztof Salazar on 09-20-2023 Erythrocyte distribution width (RBC) [Ratio] 16.7 % 11.9-15.3 [facility] Ferritin [Mass/volume] in Se rum or PlasmaOrdered By: Krzysztof Salazar on 09-20-2023 Ferritin [Mass/Vol] 92.7 ng/mL 11.0-306.8 [facility] Globulin Calc (S) [Mass/Vol] Ordered By: Krzysztof Salazar on 09-20-2023 Globulin (S) [Mass/Vol] 3.5 g/dL [facility] Glucose [Mass/volume] in Ser um or PlasmaOrdered By: Krzysztof Salazar on 09-20-2023 Glucose [Mass/Vol] 123 mg/dL 70-100 [facility] Comment on above: ADA recommended refe rence rangeRandom Glucose Reference Range is dependent on time and content of last meal. Glucose of more than 200 mg/dL in a nonstressed, ambulatory subject supports the diagnosis of Diabetes Mellitus. Hematocrit Auto (Bld) [Volum e fraction]Ordered By: Krzysztof Salazar on 09-20-2023 Hematocrit (Bld) [Volume fraction] 38.3 % 34.0-46.4 [facility] Hemoglobin [Mass/volume] in BloodOrdered By: Krzysztof Salazar on 09-20-2023 Hemoglobin (Bld) [Mass/Vol] 12.5 g/dL 11.8-15.4 [facility] IgA [Mass/volume] in Serum o r PlasmaOrdered By: Krzysztof Salazar on 09-20-2023 IgA [Mass/Vol] 409 mg/dL 87-352 [facility] IgG [Mass/volume] in Serum o r PlasmaOrdered By: Krzysztof Salazar on 09-20-2023 IgG [Mass/Vol] 1704 mg/dL 586-1602 [facility] IgM [Mass/volume] in Serum o r PlasmaOrdered By: Krzysztof Salazar on 09-20-2023 IgM [Mass/Vol] 122 mg/dL 26-217 [facility] Comment on above: Performed at: [address] [id number] Director: Jeyson Duncan PhD, Phone: [phone] Immunoglobulin light chains. kappa.free [Mass/volume] in SerumOrdered By: Krzysztof Salazar on 09-20-2023 Immunoglobulin light chains.kappa.free (S) [Mass/Vol] 30.9 mg/L 3.3-19.4 [facility] Immunoglobulin light chains. kappa.free/Immunoglobulin light chains.lambda.free [MassOrdered By: Krzysztof Salazar on 09-20-2023 Immunoglobulin light chains.kappa.free/Immuno globulin light chains.lambda.free (S) [Mass ratio] 1.17 0.26-1.65 [facility] Comment on above: Performed at: [address] [id number] Director: Jeyson Duncan PhD, Phone: [phone] Immunoglobulin light chains. lambda.free [Mass/volume] in Serum or PlasmaOrdered By: Krzysztof Salazar on 09-20-2023 Immunoglobulin light chains.lambda.free [Mass/Vol] 26.4 mg/L 5.7-26.3 [facility] Iron [Mass/volume] in Serum or PlasmaOrdered By: Krzysztof Salazar on 09-20-2023 Iron [Mass/Vol] 74 ug/dL 50-212 [facility] Iron binding capacity [Mass/ volume] in Serum or PlasmaOrdered By: Krzysztof Salazar on 09-20-2023 Iron binding capacity [Mass/Vol] 344 ug/dL 255-450 [facility] Iron saturation [Mass Fracti on] in Serum or PlasmaOrdered By: Krzysztof Salazar on 09-20-2023 Iron saturation [Mass fraction] 21.5 % 20-50 [facility] Leukocytes [#/volume] correc silverio for nucleated erythrocytes in Blood by Automated counOrdered By: Krzysztof Salazar on 09-20-2023 WBC corrected for nucl RBC Auto (Bld) [#/Vol] 8.5 10*3/uL 3.8-11.6 [facility] Lymphocytes Auto (Bld) [#/Vo l]Ordered By: Krzysztof Salazar on 09-20-2023 Lymphocytes (Bld) [#/Vol] 2.1 10*3/uL 1.00-4.8 [facility] Lymphocytes/100 WBC Auto (Bl d)Ordered By: Krzysztof Salazar on 09-20-2023 Lymphocytes/100 WBC (Bld) 24.7 % . [facility] MCH Auto (RBC) [Entitic mass ]Ordered By: Krzysztof Salazar on 09-20-2023 MCH (RBC) [Entitic mass] 25.8 pg 24.7-34.3 [facility] MCHC Auto (RBC) [Mass/Vol]Or dered By: Krzysztof Salazar on 09-20-2023 MCHC (RBC) [Mass/Vol] 32.7 g/dL 32.0-35.0 [facility] MCV Auto (RBC) [Entitic vol] Ordered By: Krzysztof Salazar on 09-20-2023 MCV (RBC) [Entitic vol] 78.7 fL 80-100 [facility] Monocytes Auto (Bld) [#/Vol] Ordered By: Krzysztof Salazar on 09-20-2023 Monocytes (Bld) [#/Vol] 0.7 10*3/uL 0.0-0.8 [facility] Monocytes/100 WBC Auto (Bld) Ordered By: Krzysztof Salazar on 09-20-2023 Monocytes/100 WBC (Bld) 7.9 % . [facility] Neutrophils Auto (Bld) [#/Vo l]Ordered By: Krzysztof Salazar on 09-20-2023 Neutrophils (Bld) [#/Vol] 5.5 10*3/uL 1.8-7.7 [facility] Neutrophils/100 WBC Auto (Bl d)Ordered By: Krzysztof Salazar on 09-20-2023 Neutrophils/100 WBC (Bld) 64.3 % . [facility] No Panel InformationOrdered By: Krzysztof Salazar on 09-20-2023 Estimated GFR (CKD-EPI) > 60.0 mL/Min [facility] Creatinine Clearance (Chem 143.32 [facility] Protein Electrophoresis M-Antwan Not observed g/dL Not Observed [facility] Protein Electrophoresis Note See comment . [facility] Comment on above: Protein electrophore sis scan will follow via computer,mail, or lumber marker delivery. Serum Immunofixation See comment . [facility] Comment on above: No monoclonality det ected. Nucleated erythrocytes [Pres ence] in Blood by Automated countOrdered By: Krzysztof Salazar on 09-20-2023 Nucleated RBC Auto Ql (Bld) 0.1 /100{WBC} 0-0.5 [facility] Platelet mean volume Auto (B ld) [Entitic vol]Ordered By: Krzysztof Salazar on 09-20-2023 Platelet mean volume (Bld) [Entitic vol] 8.8 fL 6.3-10.7 [facility] Platelets Auto (Bld) [#/Vol] Ordered By: Krzysztof Salazar on 09-20-2023 Platelets (Bld) [#/Vol] 271 10*3/uL 150-450 [facility] Potassium [Moles/volume] in Serum or PlasmaOrdered By: Krzysztof Salazar on 09-20-2023 Potassium [Moles/Vol] 4.4 mmol/L 3.5-5.1 [facility] Protein [Mass/volume] in Ser um or PlasmaOrdered By: Krzysztof Salazar on 09-20-2023 Protein [Mass/Vol] 7.7 g/dL 6.4-8.9 [facility] Protein [Mass/Vol] 7.8 g/dL 6.0-8.5 [facility] RBC Auto (Bld) [#/Vol]Ordere d By: Krzysztof Salazar on 09-20-2023 RBC (Bld) [#/Vol] 4.86 10*6/uL 3.60-5.00 [facility] Serum globulin measurement ( mass/volume)Ordered By: Krzysztof Salazar on 09-20-2023 Globulin (S) [Mass/Vol] 4.0 g/dL 2.2-3.9 [facility] Serum or plasma albumin/glob ulin mass ratioOrdered By: Krzysztof Salazar on 09-20-2023 Albumin/Globulin [Mass ratio] 1.2 {ratio} [facility] Albumin/Globulin [Mass ratio] 1.0 {ratio} 0.7-1.7 [facility] Serum or plasma alpha 1 glob ulin measurement by electrophoresis (mass/volume)Ordered By: Krzysztof Salazar on 09-20-2023 Alpha 1 globulin Elph [Mass/Vol] 0.3 g/dL 0.0-0.4 [facility] Serum or plasma alpha 2 glob ulin measurement by electrophoresis (mass/volume)Ordered By: Krzysztof Salazar on 09-20-2023 Alpha 2 globulin Elph [Mass/Vol] 0.8 g/dL 0.4-1.0 [facility] Serum or plasma anion gap de terminationOrdered By: Krzysztof Salazar on 09-20-2023 Anion gap [Moles/Vol] 11.0 mmol/L 6.0-15.0 [facility] Serum or plasma beta globuli n measurement by electrophoresis (mass/volume)Ordered By: Krzysztof Salazar on 09-20-2023 Beta globulin Elph [Mass/Vol] 1.2 g/dL 0.7-1.3 [facility] Serum or plasma gamma globul in measurement by electrophoresis (mass/volume)Ordered By: Krzysztof Salazar on 09-20-2023 Gamma globulin Elph [Mass/Vol] 1.8 g/dL 0.4-1.8 [facility] Sodium [Moles/volume] in Ser um or PlasmaOrdered By: Krzysztof Salazar on 09-20-2023 Sodium [Moles/Vol] 136 mmol/L 136-145 [facility] Transferrin [Mass/volume] in Serum or PlasmaOrdered By: Krzysztof Salazar on 09-20-2023 Transferrin [Mass/Vol] 246 mg/dL 203-362 [facility] Urea nitrogen [Mass/volume] in Serum or PlasmaOrdered By: Krzysztof Salazar on 09-20-2023 Urea nitrogen [Mass/Vol] 16 mg/dL 7 [facility] WBC Auto (Bld) [#/Vol]Ordere d By: Krzysztof Salazar on 09-20-2023 WBC (Bld) [#/Vol] 8.5 10*3/uL 3.8-11.6 [facility] Alanine aminotransferase [En zymatic activity/volume] in Serum or PlasmaOrdered By: Elizabeth Alvarado on 08-24-2023 ALT [Catalytic activity/Vol] 28 U/L [facility] Albumin [Mass/volume] in Ser um or Plasma by Bromocresol green (BCG) dye binding methoOrdered By: Elizabeth Alvarado on 08-24-2023 Albumin BCG dye [Mass/Vol] 4.3 g/dL 3.5-5.7 [facility] Alkaline phosphatase [Enzyma tic activity/volume] in Serum or PlasmaOrdered By: Elizabeth Alvarado on 08-24-2023 ALP [Catalytic activity/Vol] 86 U/L 34-104 [facility] Aspartate aminotransferase [ Enzymatic activity/volume] in Serum or PlasmaOrdered By: Elizabeth Alvarado on 08-24-2023 AST [Catalytic activity/Vol] 28 U/L 13-39 [facility] Basophils Auto (Bld) [#/Vol] Ordered By: Elizabeth Alvarado on 08-24-2023 Basophils (Bld) [#/Vol] 0.1 10*3/uL 0.0-0.2 [facility] Basophils/100 WBC Auto (Bld) Ordered By: Elizabeth Alvarado on 08-24-2023 Basophils/100 WBC (Bld) 0.7 % . [facility] Bilirubin.total [Mass/volume ] in Serum or PlasmaOrdered By: Elizabeth Alvarado on 08-24-2023 Bilirubin [Mass/Vol] 0.4 mg/dL 0.3-1.0 [facility] Calcium [Mass/volume] in Ser um or PlasmaOrdered By: Elizabeth Alvarado on 08-24-2023 Calcium [Mass/Vol] 9.4 mg/dL 8.6-10.3 [facility] Carbon dioxide, total [Moles /volume] in Serum or PlasmaOrdered By: Elizabeth Alvarado on 08-24-2023 CO2 [Moles/Vol] 29.2 mmol/L 21.0-31.[address] [facility] Chloride [Moles/volume] in S hugo or PlasmaOrdered By: Elizabeth Alvarado on 08-24-2023 Chloride [Moles/Vol] 96 mmol/L 98-107 [facility] Cholesterol [Mass/volume] in Serum or PlasmaOrdered By: Elizabeth Alvarado on 08-24-2023 Cholesterol [Mass/Vol] 160 mg/dL 140-200 [facility] Comment on above: Chol less than 200 m g/dl low riskChol 201-239 mg/dl borderline riskChol 240 mg/dl and greater high risk Cholesterol in LDL Calc [Mas s/Vol]Ordered By: Elizabeth Alvarado on 08-24-2023 Cholesterol in LDL [Mass/Vol] 78 mg/dL 0-100 [facility] Comment on above: LDL ATP III CLASSIFI CATIONLDL less than 100 mg/dL OptimalLDL 100-129 mg/dL Near or above optimalLDL 130-159 mg/dL Borderline highLDL 160-189 mg/dL HighLDL greater than 189 mg/dL Very high Cholesterol in VLDL Calc [Ma ss/Vol]Ordered By: Elizabeth Alvarado on 08-24-2023 Cholesterol in VLDL [Mass/Vol] 22 mg/dL [facility] Creatinine [Mass/volume] in Serum or PlasmaOrdered By: Elizabeth Alvarado on 08-24-2023 Creatinine [Mass/Vol] 0.65 mg/dL 0.60-1.20 [facility] Creatinine [Mass/volume] in UrineOrdered By: Elizabeth Alvarado on 08-24-2023 Creatinine (U) [Mass/Vol] 76.0 mg/dL [facility] Comment on above: No reference range e stablished Eosinophils Auto (Bld) [#/Vo l]Ordered By: Elizabeth Alvarado on 08-24-2023 Eosinophils (Bld) [#/Vol] 0.3 10*3/uL 0.0-0.45 [facility] Eosinophils/100 WBC Auto (Bl d)Ordered By: Elizabeth Alvarado on 08-24-2023 Eosinophils/100 WBC (Bld) 3.3 % . [facility] Erythrocyte distribution wid th Auto (RBC) [Ratio]Ordered By: Elizabeth Alvarado on 08-24-2023 Erythrocyte distribution width (RBC) [Ratio] 15.8 % 11.9-15.3 [facility] Globulin Calc (S) [Mass/Vol] Ordered By: Elizabeth Alvarado on 08-24-2023 Globulin (S) [Mass/Vol] 3.4 g/dL [facility] Glucose [Mass/volume] in Ser um or PlasmaOrdered By: Elizabeth Alvarado on 08-24-2023 Glucose [Mass/Vol] 92 mg/dL 70-100 [facility] Comment on above: ADA recommended refe rence rangeRandom Glucose Reference Range is dependent on time and content of last meal. Glucose of more than 200 mg/dL in a nonstressed, ambulatory subject supports the diagnosis of Diabetes Mellitus. Hematocrit Auto (Bld) [Volum e fraction]Ordered By: Elizabeth Alvarado on 08-24-2023 Hematocrit (Bld) [Volume fraction] 40.6 % 34.0-46.4 [facility] Hemoglobin [Mass/volume] in BloodOrdered By: Elizabeth Alvarado on 08-24-2023 Hemoglobin (Bld) [Mass/Vol] 13.2 g/dL 11.8-15.4 [facility] Leukocytes [#/volume] correc silverio for nucleated erythrocytes in Blood by Automated counOrdered By: Elizabeth Alvarado on 08-24-2023 WBC corrected for nucl RBC Auto (Bld) [#/Vol] 10.2 10*3/uL 3.8-11.6 [facility] Lymphocytes Auto (Bld) [#/Vo l]Ordered By: Elizabeth Alvarado on 08-24-2023 Lymphocytes (Bld) [#/Vol] 2.6 10*3/uL 1.00-4.8 [facility] Lymphocytes/100 WBC Auto (Bl d)Ordered By: Elizabeth Alvarado on 08-24-2023 Lymphocytes/100 WBC (Bld) 25.5 % . [facility] MCH Auto (RBC) [Entitic mass ]Ordered By: Elizabeth Alvarado on 08-24-2023 MCH (RBC) [Entitic mass] 26.1 pg 24.7-34.3 [facility] MCHC Auto (RBC) [Mass/Vol]Or dered By: Elizabeth Alvarado on 08-24-2023 MCHC (RBC) [Mass/Vol] 32.5 g/dL 32.0-35.0 [facility] MCV Auto (RBC) [Entitic vol] Ordered By: Elizabeth Alvarado on 08-24-2023 MCV (RBC) [Entitic vol] 80.3 fL 80-100 [facility] Microalbumin [Mass/volume] i n UrineOrdered By: Elizabeth Alvarado on 08-24-2023 Albumin DL <= 20 mg/L (U) [Mass/Vol] mg/dL 0.0-1.8 [facility] Monocytes Auto (Bld) [#/Vol] Ordered By: Elizabeth Alvarado on 08-24-2023 Monocytes (Bld) [#/Vol] 0.8 10*3/uL 0.0-0.8 [facility] Monocytes/100 WBC Auto (Bld) Ordered By: Elizabeth Alvarado on 08-24-2023 Monocytes/100 WBC (Bld) 8.1 % . [facility] Neutrophils Auto (Bld) [#/Vo l]Ordered By: Elizabeth Alvarado on 08-24-2023 Neutrophils (Bld) [#/Vol] 6.4 10*3/uL 1.8-7.7 [facility] Neutrophils/100 WBC Auto (Bl d)Ordered By: Elizabeth Alvarado on 08-24-2023 Neutrophils/100 WBC (Bld) 62.4 % . [facility] No Panel InformationOrdered By: Elizabeth Alvarado on 08-24-2023 Estimated GFR (CKD-EPI) > 60.0 mL/Min [facility] Creatinine Clearance (Chem N/A [facility] Nucleated erythrocytes [Pres ence] in Blood by Automated countOrdered By: Elizabeth Alvarado on 08-24-2023 Nucleated RBC Auto Ql (Bld) 0.2 /100{WBC} 0-0.5 [facility] Platelet mean volume Auto (B ld) [Entitic vol]Ordered By: Elizabeth Alvarado on 08-24-2023 Platelet mean volume (Bld) [Entitic vol] 9.8 fL 6.3-10.7 [facility] Platelets Auto (Bld) [#/Vol] Ordered By: Elizabeth Alvarado on 08-24-2023 Platelets (Bld) [#/Vol] 283 10*3/uL 150-450 [facility] Potassium [Moles/volume] in Serum or PlasmaOrdered By: Elizabeth Alvarado on 08-24-2023 Potassium [Moles/Vol] 4.3 mmol/L 3.5-5.1 [facility] Protein [Mass/volume] in Ser um or PlasmaOrdered By: Elizabeth Alvarado on 08-24-2023 Protein [Mass/Vol] 7.7 g/dL 6.4-8.9 [facility] RBC Auto (Bld) [#/Vol]Ordere d By: Elizabeth Alvarado on 08-24-2023 RBC (Bld) [#/Vol] 5.06 10*6/uL 3.60-5.00 [facility] Serum or plasma albumin/glob ulin mass ratioOrdered By: Elizabeth Alvarado on 08-24-2023 Albumin/Globulin [Mass ratio] 1.3 {ratio} [facility] Serum or plasma anion gap de terminationOrdered By: Elizabeth Alvarado on 08-24-2023 Anion gap [Moles/Vol] 18.1 mmol/L 6.0-15.0 [facility] Serum or plasma high density lipoprotein (HDL) cholesterol measurementOrdered By: Elizabeth Alvarado on 08-24-2023 Cholesterol in HDL [Mass/Vol] 60 mg/dL 23-92 [facility] Comment on above: HDL CHOL ATP-III CLA SSIFICATION Cardiovascular RiskHDL > or equal to 60 mg/dL LOWHDL < 40 mg/dL HIGH Serum or plasma total choles terol/high density lipoprotein (HDL) cholesterol mass ratOrdered By: Elizabeth Alvarado on 08-24-2023 Cholesterol.total/Choles terol in HDL [Mass ratio] 2.7 {ratio} <5.0 [facility] Sodium [Moles/volume] in Ser um or PlasmaOrdered By: Elizabeth Alvarado on 08-24-2023 Sodium [Moles/Vol] 139 mmol/L 136-145 [facility] Thyrotropin [Units/volume] i n Serum or PlasmaOrdered By: Elizabeth Alvarado on 08-24-2023 TSH Qn 2.40 m[IU]/L 0.45-5.33 [facility] Triglyceride [Mass/volume] i n Serum or PlasmaOrdered By: Elizabeth Alvarado on 08-24-2023 Triglyceride [Mass/Vol] 112 mg/dL 0-149 [facility] Comment on above: TRIG ATP III CLASSIF ICATIONTRIG less than 150 mg/dL NormalTRIG 150-199 mg/dL Borderline highTRIG 200-500 mg/dL High TRIG greater than 500 mg/dL Very highStandard traceable to the Center for Disease Conrtrol and Prevention (CDC) test method. Urea nitrogen [Mass/volume] in Serum or PlasmaOrdered By: Elizabeth Alvarado on 08-24-2023 Urea nitrogen [Mass/Vol] 17 mg/dL 7-25 [facility] Urine microalbumin/creatinin e mass ratioOrdered By: Elizabeth Alvarado on 08-24-2023 Albumin/Creatinine DL <= 20 mg/L (U) [Mass ratio] [facility] Comment on above: Test not performed WBC Auto (Bld) [#/Vol]Ordere d By: Elizabeth Alvarado on 08-24-2023 WBC (Bld) [#/Vol] 10.2 10*3/uL 3.8-11.6 [facility] Established Visit (Orthopaed ic Surgery)on 12-29-2022 Established [...] grammatical areas may persist related to the [employer] software Merrill Alejandro PA-C . Active Problems [...] Dec 29 2022 1:38PM EST (Author) Normal [facility] Established Visit (Orthopaed ic Surgery)on 09-22-2022 Established [...] grammatical areas may persist related to the [employer] software Acosta Schafer MD Senior Attending Physician [facility] [place] . Active Problems Problems Acute pain of [...] 1 tablet daily Results/Data Xray Knee 3 [id number] 01:48PMAcosta Schafer Test NameResultFlagReference Xray Knee 3 View(Report) FINAL REPORT Interpreted by: ACOSTA SCHAFER BURTON, MD 09/22/22 14:13 Patient Name: GEETA SHELTON STUDY: KNEE; 3 VIEWS; Right; 09/22/2022 1:48 pm INDICATION: pain Z96.659: Status post total knee replacement. ACCESSION NUMBER(S): [id number] ORDERING CLINICIAN: ACOSTA SCHAFER FINDINGS: Right knee [...] Status post total knee replacement. ACCESSION NUMBER(S): [id number] ORDERING CLINICIAN: ACOSTA SCHAFER FINDINGS: Right knee three views. Status post revision total knee replacement components in good position no signs of fracture dislocation or other bony abnormalities Electronically signed by: ACOSTA SCHAFER MD Normal [facility] 09-22-2022 XR Knee 3 Views Normal [facility] Work Phone: Alanine aminotransferase [En zymatic activity/volume] in Serum or PlasmaOrdered By: Zoey Ramirez on 08-17-2022 ALT [Catalytic activity/Vol] 45 U/L 7-52 [facility] Albumin [Mass/volume] in Ser um or PlasmaOrdered By: Zoey Ramirez on 08-17-2022 Albumin [Mass/Vol] 3.7 g/dL 2.9-4.4 [facility] Albumin [Mass/volume] in Ser um or Plasma by Bromocresol green (BCG) dye binding methoOrdered By: Zoey Ramirez on 08-17-2022 Albumin BCG dye [Mass/Vol] 4.1 g/dL 3.5-5.7 [facility] Albumin/Protein.total in 24 hour Urine by ElectrophoresisOrdered By: Zoey Ramirez on 08-17-2022 Albumin Elph (24H U) [Mass fraction] 59.9 % . [facility] Alkaline phosphatase [Enzyma tic activity/volume] in Serum or PlasmaOrdered By: Zoey Ramirez on 08-17-2022 ALP [Catalytic activity/Vol] 90 U/L 34-104 [facility] Aspartate aminotransferase [ Enzymatic activity/volume] in Serum or PlasmaOrdered By: Zoey Ramirez on 08-17-2022 AST [Catalytic activity/Vol] 40 U/L 13-39 [facility] Basophils Auto (Bld) [#/Vol] Ordered By: Zoey Ramirez on 08-17-2022 Basophils (Bld) [#/Vol] 0.1 10*3/uL 0.0-0.2 [facility] Basophils/100 WBC Auto (Bld) Ordered By: Zoey Ramirez on 08-17-2022 Basophils/100 WBC (Bld) 0.9 % . [facility] Bilirubin.total [Mass/volume ] in Serum or PlasmaOrdered By: oZey Ramirez on 08-17-2022 Bilirubin [Mass/Vol] 0.4 mg/dL 0.3-1.0 [facility] Calcium [Mass/volume] in Ser um or PlasmaOrdered By: Zoey Ramirez on 08-17-2022 Calcium [Mass/Vol] 9.1 mg/dL 8.6-10.3 [facility] Carbon dioxide, total [Moles /volume] in Serum or PlasmaOrdered By: Zoey Ramirez on 08-17-2022 CO2 [Moles/Vol] 27.9 mmol/L 21.0-31.[address] [facility] Chloride [Moles/volume] in S hugo or PlasmaOrdered By: Zoey Ramirez on 08-17-2022 Chloride [Moles/Vol] 100 mmol/L 98-107 [facility] Creatinine [Mass/volume] in Serum or PlasmaOrdered By: Zoey Ramirez on 08-17-2022 Creatinine [Mass/Vol] 0.71 mg/dL 0.60-1.20 [facility] Eosinophils Auto (Bld) [#/Vo l]Ordered By: Zoey Ramirez on 08-17-2022 Eosinophils (Bld) [#/Vol] 0.3 10*3/uL 0.0-0.45 [facility] Eosinophils/100 WBC Auto (Bl d)Ordered By: Zoey Ramirez on 08-17-2022 Eosinophils/100 WBC (Bld) 3.1 % . [facility] Erythrocyte distribution wid th Auto (RBC) [Ratio]Ordered By: Zoey Ramirez on 08-17-2022 Erythrocyte distribution width (RBC) [Ratio] 16.5 % 11.9-15.3 [facility] Ferritin [Mass/volume] in Se rum or PlasmaOrdered By: Zoey Ramirez on 08-17-2022 Ferritin [Mass/Vol] 85.3 ng/mL 11.0-306.8 [facility] Folate [Mass/volume] in Seru m or PlasmaOrdered By: Zoey Ramirez on 08-17-2022 Folate [Mass/Vol] 15.1 ng/mL >5.9 [facility] Comment on above: Folate reference ran ge: >5.9 ng/mlThe WHO technical consultation on folate and vitamin [id number] has determined that folate concentrations lessthan 4 ng/ml are considered deficient. Gamma globulin/Protein.total in 24 hour Urine by ElectrophoresisOrdered By: Zoey Ramirez on 08-17-2022 Gamma globulin Elph (24H U) [Mass fraction] 15.3 % . [facility] Globulin Calc (S) [Mass/Vol] Ordered By: Zoey Ramirez on 08-17-2022 Globulin (S) [Mass/Vol] 4.0 g/dL [facility] Glucose [Mass/volume] in Ser um or PlasmaOrdered By: Zoey Ramirez on 08-17-2022 Glucose [Mass/Vol] 142 mg/dL 70-100 [facility] Comment on above: ADA recommended refe rence rangeRandom Glucose Reference Range is dependent on time and content of last meal. Glucose of more than 200 mg/dL in a nonstressed, ambulatory subject supports the diagnosis of Diabetes Mellitus. Hematocrit Auto (Bld) [Volum e fraction]Ordered By: Zoey Ramirez on 08-17-2022 Hematocrit (Bld) [Volume fraction] 41.3 % 34.0-46.4 [facility] Hemoglobin [Mass/volume] in BloodOrdered By: Zoey Ramirez on 08-17-2022 Hemoglobin (Bld) [Mass/Vol] 13.2 g/dL 11.8-15.4 [facility] IgA [Mass/volume] in Serum o r PlasmaOrdered By: Zoey Ramirez on 08-17-2022 IgA [Mass/Vol] 498 mg/dL 87-352 [facility] IgG [Mass/volume] in Serum o r PlasmaOrdered By: Zoey Ramirez on 08-17-2022 IgG [Mass/Vol] 1834 mg/dL 586-1602 [facility] IgM [Mass/volume] in Serum o r PlasmaOrdered By: Zoey Ramirez on 08-17-2022 IgM [Mass/Vol] 124 mg/dL 26-217 [facility] Comment on above: Performed at: [facility] [address] [id number] Director: Jeyson Duncan PhD, Phone: [phone] Immunofixation for UrineOrde red By: Zoey Ramirez on 08-17-2022 Interpretation Immunofixation (U) [Interp] See comment . [facility] Comment on above: No monoclonality det ected.Performed at: [facility] [address] [id number] Director: Jeyson Duncan PhD, Phone: [phone] Immunoglobulin light chains. kappa.free [Mass/volume] in SerumOrdered By: Zoey Ramirez on 08-17-2022 Immunoglobulin light chains.kappa.free (S) [Mass/Vol] 47.1 mg/L 3.3-19.4 [facility] Immunoglobulin light chains. kappa.free/Immunoglobulin light chains.lambda.free [MassOrdered By: Zoey Ramirez on 08-17-2022 Immunoglobulin light chains.kappa.free/Immuno globulin light chains.lambda.free (S) [Mass ratio] 1.65 0.26-1.65 [facility] Comment on above: Performed at: - [address] [id number] Director: Jeyson Duncan PhD, Phone: [phone] Immunoglobulin light chains. lambda.free [Mass/volume] in Serum or PlasmaOrdered By: Zoey Ramirez on 08-17-2022 Immunoglobulin light chains.lambda.free [Mass/Vol] 28.6 mg/L 5.7-26.3 [facility] Iron [Mass/volume] in Serum or PlasmaOrdered By: Zoey Ramirez on 08-17-2022 Iron [Mass/Vol] 41 ug/dL 50-212 [facility] Iron binding capacity [Mass/ volume] in Serum or PlasmaOrdered By: Zoey Ramirez on 08-17-2022 Iron binding capacity [Mass/Vol] 344 ug/dL 255-450 [facility] Iron saturation [Mass Fracti on] in Serum or PlasmaOrdered By: Zoey Ramirez on 08-17-2022 Iron saturation [Mass fraction] 11.9 % 20-50 [facility] Leukocytes [#/volume] correc silverio for nucleated erythrocytes in Blood by Automated counOrdered By: Zoey Ramirez on 08-17-2022 WBC corrected for nucl RBC Auto (Bld) [#/Vol] 9.9 10*3/uL 3.8-11.6 [facility] Lymphocytes Auto (Bld) [#/Vo l]Ordered By: Zoey Ramirez on 08-17-2022 Lymphocytes (Bld) [#/Vol] 2.8 10*3/uL 1.00-4.8 [facility] Lymphocytes/100 WBC Auto (Bl d)Ordered By: Zoey Ramirez on 08-17-2022 Lymphocytes/100 WBC (Bld) 28.5 % . [facility] MCH Auto (RBC) [Entitic mass ]Ordered By: Zoey Ramirez on 08-17-2022 MCH (RBC) [Entitic mass] 24.9 pg 24.7-34.3 [facility] MCHC Auto (RBC) [Mass/Vol]Or dered By: Zoey Ramirez on 08-17-2022 MCHC (RBC) [Mass/Vol] 32.0 g/dL 32.0-35.0 [facility] MCV Auto (RBC) [Entitic vol] Ordered By: Zoey Ramirez on 08-17-2022 MCV (RBC) [Entitic vol] 77.8 fL 80-100 [facility] Monocytes Auto (Bld) [#/Vol] Ordered By: Zoey Ramirez on 08-17-2022 Monocytes (Bld) [#/Vol] 0.6 10*3/uL 0.0-0.8 [facility] Monocytes/100 WBC Auto (Bld) Ordered By: Zoey Ramirez on 08-17-2022 Monocytes/100 WBC (Bld) 5.9 % . [facility] Neutrophils Auto (Bld) [#/Vo l]Ordered By: Zoey Ramirez on 08-17-2022 Neutrophils (Bld) [#/Vol] 6.1 10*3/uL 1.8-7.7 [facility] Neutrophils/100 WBC Auto (Bl d)Ordered By: Zoey Ramirez on 08-17-2022 Neutrophils/100 WBC (Bld) 61.6 % . [facility] No Panel InformationOrdered By: Zoey Ramirez on 08-17-2022 Estimated GFR (CKD-EPI) > 60.0 mL/Min [facility] Creatinine Clearance (Chem 122.85 [facility] Protein Electrophoresis M-Antwan Not observed g/dL Not Observed [facility] Protein Electrophoresis Note See comment . [facility] Comment on above: Protein electrophore sis scan will follow via computer,mail, or lumber marker delivery.Performed at: [address] [id number] Director: Jeyson Duncan PhD, Phone: [phone] Serum Immunofixation Comment: . [facility] Comment on above: Presence of monoclon al protein is unclear at this time. Suggestrepeat in 3 to 6 months if clinically indicated. Urine Random Prot Electrophor Note See comment . [facility] Comment on above: Protein electrophore sis scan will follow via computer,mail, or lumber marker delivery.Performed at: [address] [id number] Director: Jeyson Duncan PhD, Phone: [phone] Nucleated erythrocytes [Pres ence] in Blood by Automated countOrdered By: Zoey Ramirez on 08-17-2022 Nucleated RBC Auto Ql (Bld) 0.1 /100{WBC} 0-0.5 [facility] Platelet mean volume Auto (B ld) [Entitic vol]Ordered By: Zoey Ramirez on 08-17-2022 Platelet mean volume (Bld) [Entitic vol] 8.5 fL 6.3-10.7 [facility] Platelets Auto (Bld) [#/Vol] Ordered By: oZey Ramirez on 08-17-2022 Platelets (Bld) [#/Vol] 345 10*3/uL 150-450 [facility] Potassium [Moles/volume] in Serum or PlasmaOrdered By: Zoey Ramirez on 08-17-2022 Potassium [Moles/Vol] 4.7 mmol/L 3.5-5.1 [facility] Protein [Mass/volume] in Ser um or PlasmaOrdered By: Zoey Ramirez on 08-17-2022 Protein [Mass/Vol] 8.1 g/dL 6.4-8.9 [facility] Protein [Mass/Vol] 8.0 g/dL 6.0-8.5 [facility] Protein [Mass/volume] in Uri neOrdered By: Zoey Ramirez on 08-17-2022 Protein (U) [Mass/Vol] 75.0 mg/dL Not Estab. [facility] Protein.monoclonal/Protein.t otal in 24 hour Urine by ElectrophoresisOrdered By: Zoey Ramirez on 08-17-2022 Protein.monoclonal Elph (24H U) [Mass fraction] Not observed % Not Observed [facility] RBC Auto (Bld) [#/Vol]Ordere d By: Zoey Ramirez on 08-17-2022 RBC (Bld) [#/Vol] 5.31 10*6/uL 3.60-5.00 [facility] Serum globulin measurement ( mass/volume)Ordered By: Zoey Ramirez on 08-17-2022 Globulin (S) [Mass/Vol] 4.3 g/dL 2.2-3.9 [facility] Serum or plasma albumin/glob ulin mass ratioOrdered By: Zoey Ramirez on 08-17-2022 Albumin/Globulin [Mass ratio] 1.0 {ratio} [facility] Albumin/Globulin [Mass ratio] 0.9 {ratio} 0.7-1.7 [facility] Serum or plasma alpha 1 glob ulin measurement by electrophoresis (mass/volume)Ordered By: Zoey Ramirez on 08-17-2022 Alpha 1 globulin Elph [Mass/Vol] 0.3 g/dL 0.0-0.4 [facility] Serum or plasma alpha 2 glob ulin measurement by electrophoresis (mass/volume)Ordered By: Zoey Ramirez on 08-17-2022 Alpha 2 globulin Elph [Mass/Vol] 0.8 g/dL 0.4-1.0 [facility] Serum or plasma anion gap de terminationOrdered By: Zoey Ramirez on 08-17-2022 Anion gap [Moles/Vol] 12.8 mmol/L 6.0-15.0 [facility] Serum or plasma beta globuli n measurement by electrophoresis (mass/volume)Ordered By: Zoey Ramirez on 08-17-2022 Beta globulin Elph [Mass/Vol] 1.3 g/dL 0.7-1.3 [facility] Serum or plasma gamma globul in measurement by electrophoresis (mass/volume)Ordered By: Zoey Ramirez on 08-17-2022 Gamma globulin Elph [Mass/Vol] 1.9 g/dL 0.4-1.8 [facility] Sodium [Moles/volume] in Ser um or PlasmaOrdered By: Zoey Ramirez on 08-17-2022 Sodium [Moles/Vol] 136 mmol/L 136-145 [facility] Transferrin [Mass/volume] in Serum or PlasmaOrdered By: Zoey Ramirez on 08-17-2022 Transferrin [Mass/Vol] 246 mg/dL 203-362 [facility] Urea nitrogen [Mass/volume] in Serum or PlasmaOrdered By: Zoey Ramirez on 08-17-2022 Urea nitrogen [Mass/Vol] 23 mg/dL 7-25 [facility] Urine alpha 1 globulin/total protein by electrophoresisOrdered By: Zoey Ramirez on 08-17-2022 Alpha 1 globulin Elph (U) [Mass fraction] 4.5 % . [facility] Urine alpha 2 globulin/total protein ratio by electrophoresisOrdered By: Zoey Ramirez on 08-17-2022 Alpha 2 globulin Elph (U) [Mass fraction] 7.7 % . [facility] Urine beta globulin measurem ent by electrophoresis (mass/volume)Ordered By: Zoey Ramirez on 08-17-2022 Beta globulin Elph (U) [Mass/Vol] 12.6 % . [facility] Vitamin B12 ser/plasOrdered By: Zoey Ramirez on 08-17-2022 Cobalamin (Vitamin B12) [Mass/Vol] 387 pg/mL 180-914 [facility] WBC Auto (Bld) [#/Vol]Ordere d By: Zoey Ramirez on 08-17-2022 WBC (Bld) [#/Vol] 9.9 10*3/uL 3.8-11.6 [facility] Established Visit (Orthopaed ic Surgery)on 08-11-2022 [...] to do her outpatient physical therapy at [facility]. She has a few visits left. She [...] grammatical areas may persist related to the [employer] software Merrill Alejnadro PA-C . Active Problems Problems Acute pain [...] Aug 11 2022 10:34AM EST (Author) Normal [employer] Albumin [Mass/volume] in Ser um or PlasmaOrdered By: Lorrie Baig on 07-23-2022 Albumin [Mass/Vol] 3.3 g/dL 2.9-4.4 [facility] Creatine kinase [Enzymatic a ctivity/volume] in Serum or PlasmaOrdered By: Lorrie Baig on 07-23-2022 CK [Catalytic activity/Vol] 51 U/L 30-223 [facility] Erythrocyte sedimentation ra te by Photometric methodOrdered By: Lorrie Baig on 07-23-2022 ESR Photometric method (Bld) [Velocity] 65 mm/hr 0-29 [facility] Folate [Mass/volume] in Seru m or PlasmaOrdered By: Lorrie Baig on 07-23-2022 Folate [Mass/Vol] 12.8 ng/mL >5.9 [facility] Comment on above: Folate reference ran ge: >5.9 ng/mlThe WHO technical consultation on folate and vitamin [id number] has determined that folate concentrations lessthan 4 ng/ml are considered deficient. Magnesium [Mass/volume] in S hugo or PlasmaOrdered By: Lorrie Baig on 07-23-2022 Magnesium [Mass/Vol] 1.8 mg/dL 1.9-2.7 [facility] No Panel InformationOrdered By: Lorrie Baig on 07-23-2022 Protein Electrophoresis Interpret See comment . [facility] Comment on above: Faint band in gamma region suspicious for monoclonalimmunoglobulin. This band may represent a benign spike asseen in older people or could be a paraprotein as seen inMultiple Myeloma, Waldenstrom's Macroglobulinemia orLymphoma. Depending on clinical circumstances, furtherdiagnostic studies may include serum immunofixation orserum free light chain quantitation.Performed at: [address] [id number] Director: Jeyson Duncan PhD, Phone: [phone] Protein Electrophoresis M-Antwan Comment: g/dL Not Observed [facility] Comment on above: ASYMMETRICAL GAMMA Protein Electrophoresis Note See comment . [facility] Comment on above: Protein electrophore sis scan will follow via computer,mail, or lumber marker delivery. Phosphate [Mass/volume] in S hugo or PlasmaOrdered By: Lorrie Baig on 07-23-2022 Phosphate [Mass/Vol] 4.5 mg/dL 3.7-7.2 [facility] Protein [Mass/volume] in Ser um or PlasmaOrdered By: Lorrie Baig on 07-23-2022 Protein [Mass/Vol] 7.2 g/dL 6.0-8.5 [facility] Serum globulin measurement ( mass/volume)Ordered By: Lorrie Baig on 07-23-2022 Globulin (S) [Mass/Vol] 3.9 g/dL 2.2-3.9 [facility] Serum or plasma albumin/glob ulin mass ratioOrdered By: Lorrie Baig on 07-23-2022 Albumin/Globulin [Mass ratio] 0.8 {ratio} 0.7-1.7 [facility] Serum or plasma alpha 1 glob ulin measurement by electrophoresis (mass/volume)Ordered By: Lorrie Baig on 07-23-2022 Alpha 1 globulin Elph [Mass/Vol] 0.3 g/dL 0.0-0.4 [facility] Serum or plasma alpha 2 glob ulin measurement by electrophoresis (mass/volume)Ordered By: Lorrie Baig on 07-23-2022 Alpha 2 globulin Elph [Mass/Vol] 0.7 g/dL 0.4-1.0 [facility] Serum or plasma beta globuli n measurement by electrophoresis (mass/volume)Ordered By: Lorrie Baig on 07-23-2022 Beta globulin Elph [Mass/Vol] 1.2 g/dL 0.7-1.3 [facility] Serum or plasma gamma globul in measurement by electrophoresis (mass/volume)Ordered By: Lorrie Baig on 07-23-2022 Gamma globulin Elph [Mass/Vol] 1.7 g/dL 0.4-1.8 [facility] Thyrotropin [Units/volume] i n Serum or PlasmaOrdered By: Lorrie Baig on 07-23-2022 TSH Qn 4.76 m[IU]/L 0.45-5.33 [facility] Vitamin B12 ser/plasOrdered By: Lorrie Baig on 07-23-2022 Cobalamin (Vitamin B12) [Mass/Vol] 358 pg/mL 180-914 [facility] KNEE 3 VIEWSon 07-14-2022 KNEE 3 VIEWS Patient Name: GEETA SHELTON STUDY: KNEE; 3 VIEWS; Right; 07/14/2022 8:47 am INDICATION: pain Z96.659: Status post total knee replacement. ACCESSION NUMBER(S): [id number] ORDERING CLINICIAN: ACOSTA SCHAFER FINDINGS: Right knee three views. Status post revision type total knee replacement components in good position no signs of fracture dislocation or other bony abnormality dee in the soft tissues anteriorly. Electronically signed by: ACOSTA SCHAFER MD [facility] Post Op (Orthopaedic Surgery )on 07-14-2022 [...] will most likely do this at [facility] in [place]. Physical exam General: No acute distress and [...] Diagnostics Please see dictated x-ray report Procedure Diagonal removed Steri-Strips placed without complication Assessment Status [...] grammatical areas may persist related to the [employer] software Merrill Alejandro PA-C . Active Problems Problems Acute pain of both knees (338.19,719.46) (M25.561,M25.562) Status post total knee replacement (V43.65) (Z96.659) Allergies Medication Penicillins Recorded By: Tarsha Murray; 05/18/2022 8:47:33 AM Current Meds Medication NameInstruction Xarelto 10 MG Oral TabletTake 1 tablet daily Results/Data Xray Knee 3 [id number] 08:47AMSAcosta steward Test NameResultFlagReference Xray Knee 3 View(Report) FINAL REPORT Interpreted by: ACOSTA SCHAFER BURTON, MD 07/14/22 08:49 Patient Name: GEETA SHELTON STUDY: KNEE; 3 VIEWS; Right; 07/14/2022 8:47 am INDICATION: pain Z96.659: Status post total knee replacement. ACCESSION NUMBER(S): [id number] ORDERING CLINICIAN: ACOSTA SCHAFER FINDINGS: Right knee [...] Radiologyon 07-14-2022 XR Knee 3 Views Normal -[facility] Work Phone: Basic Metabolic Panel Reflex Mgon 07-03-2022 Anion gap [Moles/Vol] 10 mmol/L Normal 9-15 [facility] Comment on above: Performed By: #### B MPX #### [facility] [address] [place] [address] Calcium [Mass/Vol] 9.2 mg/dL Normal 8.5-9.9 [facility] Comment on above: Performed By: #### B MPX #### [facility] [address] [place] [address] Chloride [Moles/Vol] 100 mmol/L Normal 95-107 [facility] Comment on above: Performed By: #### B MPX #### [facility] [address] [place] [address] CO2 [Moles/Vol] 27 mmol/L Normal 20-31 [facility] Comment on above: Performed By: #### B MPX #### [facility] [address] [place] [address] Creatinine [Mass/Vol] 0.51 mg/dL Normal 0.50-0.90 [facility] Comment on above: Performed By: #### B MPX #### [facility] [address] [place] [address] GFR >60.0 Normal >60 [facility] Comment on above: Result Comment: Pedi atric [...] secretion. Performed By: #### B MPX #### [facility] [address] [place] [address] Glucose [Mass/Vol] 132 mg/dL Critically high 70-99 [facility] Comment on above: Performed By: #### B MPX #### [facility] [address] [place] [address] Magnesium [Moles/Vol] 4.6 mmol/L Normal 3.4-4.9 [facility] Comment on above: Performed By: #### B MPX #### [facility] [address] [place] [address] Sodium [Moles/Vol] 137 mmol/L Normal 135-144 [facility] Comment on above: Performed By: #### B MPX #### [facility] [address] [place] [address] Urea nitrogen [Mass/Vol] 12 mg/dL Normal 6-20 [facility] Comment on above: Performed By: #### B MPX #### [facility] [address] [place] [address] Basic Metabolic Panel w/ Ref hillary to MGon 07-03-2022 Anion gap [Moles/Vol] 10 mmol/L [facility] [employer] Calcium [Mass/Vol] 9.2 mg/dL 8.5 - 9.9 mg/dL [facility] [employer] Chloride [Moles/Vol] 100 mmol/L [facility] [employer] CO2 [Moles/Vol] 27 mmol/L [facility] [employer] Creatinine [Mass/Vol] 0.51 mg/dL 0.50 - 0.90 mg/dL [facility] GFR/1.73 sq M.predicted MDRD (S/P/Bld) [Vol rate/Area] 60 - [facility] Comment on above: Pediatric calculator link https://www.kidney.org/professionals/kdoqi/gfr_calculatorped [...] 132 mg/dL High 70 - 99 mg/dL [facility] Interpretation and review of laboratory results Abnormal [facility] Potassium reflex Magnesium 4.6 [facility] Sodium [Moles/Vol] 137 mmol/L [facility] Urea nitrogen (BldV) [Mass/Vol] 12 mg/dL 6 - 20 mg/dL [facility] CBCon 07-03-2022 Hematocrit (Bld) [Volume fraction] 39.9 % 37.0 - 47.0 % [facility] Hemoglobin (Bld) [Mass/Vol] 12.9 g/dL 12.0 - 16.0 g/dL [facility] Interpretation and review of laboratory results Abnormal [facility] MCH (RBC) [Entitic mass] 25.7 pg Low 27. 0 - 31.3 pg [facility] MCHC (RBC) [Mass/Vol] 32.3 % Low 33.0 - 37.0 % [facility] MCV (RBC) [Entitic vol] 79.6 fL 79.4 - 94.8 fL [facility] Platelet distribution width (Bld) [Ratio] 16.5 % High 11.5 - 14.5 % [facility] Platelets (Bld) [#/Vol] 230 10*3/uL 130 - 400 K/uL [facility] RBC (Bld) [#/Vol] 5.02 10*6/uL [facility] WBC (Bld) [#/Vol] 9.2 10*3/uL 4.8 - 10.8 K/uL [facility] CBC With Platelet No Differe ntialon 07-03-2022 Erythrocyte distribution width (RBC) [Ratio] 16.5 % Critically high 11.5-14.5 [facility] Comment on above: Performed By: #### C BCND #### [facility] [address] [place] [address] Hematocrit (Bld) [Volume fraction] 39.9 % Normal 37.0-47.0 [facility] Comment on above: Performed By: #### C BCND #### [facility] [address] [place] [address] Hemoglobin (Bld) [Mass/Vol] 12.9 g/dL Normal 12.0-16.0 [facility] Comment on above: Performed By: #### C BCND #### [facility] [address] [place] [address] MCH (RBC) [Entitic mass] 25.7 pg Low 27.0-31.3 [facility] Comment on above: Performed By: #### C BCND #### [facility] [address] [place] [address] MCHC 32.3 % Low 33.0-37.0 [facility] Comment on above: Performed By: #### C BCND #### [facility] [address] [place] [address] MCV (RBC) [Entitic vol] 79.6 fL Normal 79.4-94.8 [facility] Comment on above: Performed By: #### C BCND #### [facility] [address] [place] [address] Platelets (Bld) [#/Vol] 230 10*3/uL Normal 130-400 [facility] Comment on above: Performed By: #### C BCND #### [facility] [address] [place] [address] RBC (Bld) [#/Vol] 5.02 10*6/uL Normal 4.20-5.40 [facility] Comment on above: Performed By: #### C BCND #### [facility] [address] [place] [address] WBC (Bld) [#/Vol] 9.2 10*3/uL Normal 4.8-10.8 [facility] Comment on above: Performed By: #### C BCND #### [facility] [address] [place] [address] Basic Metabolic Panel Reflex Mgon 07-02-2022 Anion gap [Moles/Vol] 8 mmol/L Low 9-15 [facility] Comment on above: Order Comment: Daja ction has been rescheduled by HERAM at 07/02/2022 05:49 Reason: Come back last per rn fouzia Performed By: #### B MPX #### [facility] [address] [place] [address] Calcium [Mass/Vol] 8.9 mg/dL Normal 8.5-9.9 [facility] Comment on above: Order Comment: Daja ction has been rescheduled by HERAM at 07/02/2022 05:49 Reason: Come back last per rn fouzia Performed By: #### B MPX #### [facility] [address] [place] [address] Chloride [Moles/Vol] 100 mmol/L Normal 95-107 [facility] Comment on above: Order Comment: Daja ction has been rescheduled by HERAM at 07/02/2022 05:49 Reason: Come back last per rn fouzia Performed By: #### B MPX #### [facility] [address] [place] [address] CO2 [Moles/Vol] 27 mmol/L Normal 20-31 [facility] Comment on above: Order Comment: Daja ction has been rescheduled by HERAM at 07/02/2022 05:49 Reason: Come back last per rn fouzia Performed By: #### B MPX #### [facility] [address] [place] [address] Creatinine [Mass/Vol] 0.61 mg/dL Normal 0.50-0.90 [facility] Comment on above: Order Comment: Daja ction has been rescheduled by HERAM at 07/02/2022 05:49 Reason: Come back last per rn fouzia Performed By: #### B MPX #### [facility] [address] [place] [address] GFR >60.0 Normal >60 [facility] Comment on above: Order Comment: Daja ction [...] secretion. Performed By: #### B MPX #### [facility] [address] [place] [address] Glucose [Mass/Vol] 144 mg/dL Critically high 70-99 [facility] Comment on above: Order Comment: Daja zamarripa has been rescheduled by HERAM at 07/02/2022 05:49 Reason: Come back last per kip reinoso Performed By: #### B MPX #### [facility] [address] [place] [address] Magnesium [Moles/Vol] 4.8 mmol/L Normal 3.4-4.9 [facility] Comment on above: Order Comment: Daja zamarripa has been rescheduled by HERAM at 07/02/2022 05:49 Reason: Come back last per kip reinoso Performed By: #### B MPX #### [facility] [address] [place] [address] Sodium [Moles/Vol] 135 mmol/L Normal 135-144 [facility] Comment on above: Order Comment: Daja ction has been rescheduled by HERAM at 07/02/2022 05:49 Reason: Come back last per kip reinoso Performed By: #### B MPX #### [facility] [address] [place] [address] Urea nitrogen [Mass/Vol] 21 mg/dL Critically high 6-20 [facility] Comment on above: Order Comment: Daja ction has been rescheduled by HERAM at 07/02/2022 05:49 Reason: Come back last per kip reinoso Performed By: #### B MPX #### [facility] [address] [place] [address] Basic Metabolic Panel w/ Ref hillary to MGon 07-02-2022 Anion gap [Moles/Vol] 8 mmol/L Low [facility] Calcium [Mass/Vol] 8.9 mg/dL 8.5 - 9.9 mg/dL [facility] Chloride [Moles/Vol] 100 mmol/L [facility] CO2 [Moles/Vol] 27 mmol/L [facility] Creatinine [Mass/Vol] 0.61 mg/dL 0.50 - 0.90 mg/dL [facility] GFR/1.73 sq M.predicted MDRD (S/P/Bld) [Vol rate/Area] 60 - PINF [facility] Comment on above: Pediatric calculator link [...] 144 mg/dL High 70 - 99 mg/dL [facility] Interpretation and review of laboratory results Abnormal [facility] Potassium reflex Magnesium 4.8 [facility] Sodium [Moles/Vol] 135 mmol/L [facility] Urea nitrogen (BldV) [Mass/Vol] 21 mg/dL High 6 - 20 mg/dL [facility] Collection has been rescheduled by VALDO at 07/02/2022 05:49 Reason: Come back last per kip reinoso [facility] CBCon 07-02-2022 Hematocrit (Bld) [Volume fraction] 40.3 % 37.0 - 47.0 % [facility] Hemoglobin (Bld) [Mass/Vol] 12.9 g/dL 12.0 - 16.0 g/dL [facility] Interpretation and review of laboratory results Abnormal [facility] MCH (RBC) [Entitic mass] 25.5 pg Low 27. 0 - 31.3 pg [facility] MCHC (RBC) [Mass/Vol] 32.1 % Low 33.0 - 37.0 % [facility] MCV (RBC) [Entitic vol] 79.6 fL 79.4 - 94.8 fL [facility] Platelet distribution width (Bld) [Ratio] 16.3 % High 11.5 - 14.5 % [facility] Platelets (Bld) [#/Vol] 230 10*3/uL 130 - 400 K/uL [facility] RBC (Bld) [#/Vol] 5.06 10*6/uL [facility] WBC (Bld) [#/Vol] 9.1 10*3/uL 4.8 - 10.8 K/uL [facility] Collection has been rescheduled by VALDO at 07/02/2022 05:49 Reason: Come back last per kip galdamezfouzia [facility] CBC With Platelet No Differe ntialon 07-02-2022 Erythrocyte distribution width (RBC) [Ratio] 16.3 % Critically high 11.5-14.5 [facility] Comment on above: Order Comment: Daja zamarripa has been rescheduled by VALDO at 07/02/2022 05:49 Reason: Come back last per kip reinoso Performed By: #### C BCND #### [facility] [address] [facility] [place] [address] Hematocrit (Bld) [Volume fraction] 40.3 % Normal 37.0-47.0 [facility] Comment on above: Order Comment: Daja zamarripa has been rescheduled by VALDO at 07/02/2022 05:49 Reason: Come back last per kip reinoso Performed By: #### C BCND #### [facility] [address] [place] [address] Hemoglobin (Bld) [Mass/Vol] 12.9 g/dL Normal 12.0-16.0 [facility] Comment on above: Order Comment: Daja zamarripa has been rescheduled by HERAM at 07/02/2022 05:49 Reason: Come back last per rn fouzia Performed By: #### C BCND #### [facility] [address] [place] [address] MCH (RBC) [Entitic mass] 25.5 pg Low 27.0-31.3 [facility] Comment on above: Order Comment: Daja zamarripa has been rescheduled by HERAM at 07/02/2022 05:49 Reason: Come back last per rn fouzia Performed By: #### C BCND #### [facility] [address] [place] [address] MCHC 32.1 % Low 33.0-37.0 [facility] Comment on above: Order Comment: Daja zamarripa has been rescheduled by HERAM at 07/02/2022 05:49 Reason: Come back last per rn fouzia Performed By: #### C BCND #### [facility] [address] [place] [address] MCV (RBC) [Entitic vol] 79.6 fL Normal 79.4-94.8 [facility] Comment on above: Order Comment: Daja zamarripa has been rescheduled by HERAM at 07/02/2022 05:49 Reason: Come back last per rn fouzia Performed By: #### C BCND #### [facility] [address] [place] [address] Platelets (Bld) [#/Vol] 230 10*3/uL Normal 130-400 [facility] Comment on above: Order Comment: Daja zamarripa has been rescheduled by HERAM at 07/02/2022 05:49 Reason: Come back last per rn fouzia Performed By: #### C BCND #### [facility] [address] [place] [address] RBC (Bld) [#/Vol] 5.06 10*6/uL Normal 4.20-5.40 [facility] Comment on above: Order Comment: Daja zamarripa has been rescheduled by HERAM at 07/02/2022 05:49 Reason: Come back last per rn fouzia Performed By: #### C BCND #### [facility] [address] [place] [address] WBC (Bld) [#/Vol] 9.1 10*3/uL Normal 4.8-10.8 [facility] Comment on above: Order Comment: Daja zamarripa has been rescheduled by HERAM at 07/02/2022 05:49 Reason: Come back last per rn fouzia Performed By: #### C BCND #### [facility] [address] [place] [address] US DUP UPPER EXTREMITY LEFT VENOUSon 07-02-2022 [...] Jean Sifuentes MD 07/02/22 Final result Normal [facility] No evidence of DVT. [facility] EXAMINATION: VENOUS ULTRASOUND OF THE LEFT [...] normal color flow study and spectral analysis. [facility] Jean Sifuentes MD - 07/02/2022 EXAMINATION: [...] spectral analysis. IMPRESSION: No evidence of DVT. [employer] Phone: [employer] Phone: Radiology Study observation (narrative) [employer] Phone: XR KNEE RIGHT (1-2 VIEWS)on 07-01-2022 [...] Jean Sifuentes MD 07/01/22 Final result Normal [facility] Normal postsurgical appearance [facility] EXAMINATION: TWO XRAY VIEWS OF THE [...] are intact. Overlying surgical dee are seen [facility] Jean Sifuentes MD - 07/01/2022 EXAMINATION: [...] dee are seen IMPRESSION: Normal postsurgical appearance [employer] Work Phone: Radiology Study observation (narrative) [employer] Work Phone: XR KNEE RIGHT (1-2 VIEWS)Ord ered By: Jean Sifuentes on 07-01-2022 [employer] Work Phone: MRSA DNA Probe, Nasalon MRSA, DNA, Nasal Negative NEG [employer] Comment on above: NEGATIVE: MRSA DNA n ot detected by nucleic acid amplification. Results should be used as an adjunct to nosocomial control efforts to identify patients needing enhanced precautions. The test is not intended to identify patients with staphylococcal infections. Results should not be used to guide or monitor treatment for MRSA infections. [facility] [address] [place] [id number] Specimen Description Swab [employer] [facility] MRSA, DNA, Nasalon MRSA, DNA, Nasal Negative Normal NEG [facility] Comment on above: Result Comment: NEGA TIVE: MRSA DNA not detected by nucleic acid amplification. Results should be used as an adjunct to nosocomial control efforts to identify patients needing enhanced precautions. The test is not intended to identify patients with staphylococcal infections. Results should not be used to guide or monitor treatment for MRSA infections. [facility] [address] [place], [place] [id number] [phone] Performed By: #### I MRSA #### [facility] [address] [place] [address] EKG 12 LeadOrdered By: Leigh Ann Nash on 06-25-2022 Atrial Rate 73 BPM [employer] Work Phone: P [place] 33 degrees [facility] [employer] Work Phone: P-R Interval 160 ms [employer] Work Phone: Q-T Interval 406 ms [employer] Work Phone: QRS Duration 102 ms [employer] Work Phone: QTc Calculation (Bazett) 447 ms [employer] Work Phone: R [place] 74 degrees [employer] Work Phone: T [place] 65 degrees [employer] Work Phone: Ventricular Rate 73 BPM [facility] [employer] [employer] Work Phone: [employer] Work Phone: EKG 12 Leadon 06-25-2022 Normal sinus rhythm Incomplete right bundle branch block Confirmed by LEIGH ANN NASH ([id number]) on 06/25/2022 6:49:48 PM Leigh Ann Sumner F, DO - 06/25/2022 Normal sinus rhythm Incomplete right bundle branch block Confirmed by LEIGH ANN NASH ([id number]) on 06/25/2022 6:49:48 PM [employer] Work Phone: Established Visit (Orthopaed ic Surgery)on 06-25-2022 Established Visit (Orthopaedic Surgery) Chief Complaint Pre-op RT TK-Revision 07/01/22 @ [facility] History of Present Illness This patient has [...] plans on performing outpatient physical therapy at [facility] in [place]. All of the patient's questions and concerns were answered. This note was prepared using voice recognition software. The details of this note are correct and have been reviewed, and corrected to the best of my ability. Some grammatical areas may persist related to the [employer] software Merrill Alejandro PA-C . Active Problems Problems Acute pain of both knees (338.19,719.46) (M25.561,M25.562) Allergies Medication Penicillins Recorded By: Tarsha Murray; 05/18/2022 8:47:33 AM Signatures Electronically signed by : Merrill Alejandro PA-C; Jun 25 2022 2:21PM EST (Author) Normal [facility] PT Initial Evaluationon 03-0 PT Initial Evaluation [...] today's treatment with some difficulty. Evaluation Code: 31276 PT Eval: Low Complexity, 32 min(s). Resources provided today: education Signatures Electronically signed by : Natali Tyson, PT DPT; Jun 30 2022 10:08AM EST (Author) Normal [employer] APTTon 06-24-2022 aPTT Coag (Bld) [Time] 30.1 s [facility] Comment on above: Effective 02/27/2020: Heparin Therapeutic Range: 64.0 98.0 seconds. [facility] CBC With Platelet and Differ entialon 06-24-2022 Basophils (Bld) [#/Vol] 0.1 10*3/uL Normal 0.0-0.2 [facility] Comment on above: Performed By: #### C BCWD #### [facility] [address] [place] [address] Basophils/100 WBC (Bld) 0.6 % Normal [facility] Comment on above: Performed By: #### C BCWD #### [facility] [address] [place] [address] Eosinophils (Bld) [#/Vol] 0.1 10*3/uL Normal 0.0-0.7 [facility] Comment on above: Performed By: #### C BCWD #### [facility] [address] [place] [address] Eosinophils/100 WBC (Bld) 1.6 % Normal [facility] Comment on above: Performed By: #### C BCWD #### [facility] [address] [place] [address] Erythrocyte distribution width (RBC) [Ratio] 16.4 % Critically high 11.5-14.5 [facility] Comment on above: Performed By: #### C BCWD #### [facility] [address] [place] [address] Hematocrit (Bld) [Volume fraction] 44.4 % Normal 37.0-47.0 [facility] Comment on above: Performed By: #### C BCWD #### [facility] [address] [place] [address] Hemoglobin (Bld) [Mass/Vol] 14.2 g/dL Normal 12.0-16.0 [facility] Comment on above: Performed By: #### C BCWD #### [facility] [address] [place] [address] Lymphocytes (Bld) [#/Vol] 2.3 10*3/uL Normal 1.0-4.8 [facility] Comment on above: Performed By: #### C BCWD #### [facility] [address] [place] [address] Lymphocytes/100 WBC (Bld) 25.8 % Normal [facility] Comment on above: Performed By: #### C BCWD #### [facility] [address] [place] [address] MCH (RBC) [Entitic mass] 25.1 pg Low 27.0-31.3 [facility] Comment on above: Performed By: #### C BCWD #### [facility] [address] [place] [address] MCHC 32.0 % Low 33.0-37.0 [facility] Comment on above: Performed By: #### C BCWD #### [facility] [address] [place] [address] MCV (RBC) [Entitic vol] 78.5 fL Low 79.4-94.8 [facility] Comment on above: Performed By: #### C BCWD #### [facility] [address] [place] [address] Monocytes (Bld) [#/Vol] 0.8 10*3/uL Normal 0.2-0.8 [facility] Comment on above: Performed By: #### C BCWD #### [facility] [address] [place] [address] Monocytes/100 WBC (Bld) 9.4 % Normal [facility] Comment on above: Performed By: #### C BCWD #### [facility] [address] [place] [address] Neutrophils (Bld) [#/Vol] 5.6 10*3/uL Normal 1.4-6.5 [facility] Comment on above: Performed By: #### C BCWD #### [facility] [address] [place] [address] Neutrophils/100 WBC (Bld) 62.6 % Normal [facility] Comment on above: Performed By: #### C BCWD #### [facility] [address] [place] [address] Platelets (Bld) [#/Vol] 281 10*3/uL Normal 130-400 [facility] Comment on above: Performed By: #### C BCWD #### [facility] [address] [place] [address] RBC (Bld) [#/Vol] 5.66 10*6/uL Critically high 4.20-5.40 [facility] Comment on above: Performed By: #### C BCWD #### [facility] [address] [place] [address] WBC (Bld) [#/Vol] 8.9 10*3/uL Normal 4.8-10.8 [facility] Comment on above: Performed By: #### C BCWD #### [facility] [address] [place] [address] CBC with Auto Differentialon 06-24-2022 Basophils (Bld) [#/Vol] 0.1 10*3/uL 0.0 - 0.2 K/uL [facility] Basophils/100 WBC (Bld) 0.6 % [facility] Eosinophils (Bld) [#/Vol] 0.1 10*3/uL 0.0 - 0.7 K/uL [facility] Eosinophils/100 WBC (Bld) 1.6 % [facility] Hematocrit (Bld) [Volume fraction] 44.4 % 37.0 - 47.0 % [facility] Hemoglobin (Bld) [Mass/Vol] 14.2 g/dL 12.0 - 16.0 g/dL [facility] Interpretation and review of laboratory results Abnormal [facility] Lymphocytes (Bld) [#/Vol] 2.3 10*3/uL 1.0 - 4.8 K/uL [facility] Lymphocytes/100 WBC (Bld) 25.8 % [facility] MCH (RBC) [Entitic mass] 25.1 pg Low 27. 0 - 31.3 pg [facility] MCHC (RBC) [Mass/Vol] 32.0 % Low 33.0 - 37.0 % [facility] MCV (RBC) [Entitic vol] 78.5 fL Low 79.4 - 94.8 fL [facility] Monocytes (Bld) [#/Vol] 0.8 10*3/uL 0.2 - 0.8 K/uL [facility] Monocytes/100 WBC (Bld) 9.4 % [facility] Neutrophils Absolute 5.6 K/uL 1.4 - 6 .5 K/uL [facility] Neutrophils/100 WBC (Bld) 62.6 % [facility] Platelet distribution width (Bld) [Ratio] 16.4 % High 11.5 - 14.5 % [facility] Platelets (Bld) [#/Vol] 281 10*3/uL 130 - 400 K/uL [facility] RBC (Bld) [#/Vol] 5.66 10*6/uL High [facility] WBC (Bld) [#/Vol] 8.9 10*3/uL 4.8 - 10.8 K/uL [facility] Comprehensive Metabolic Pane gretel 03-02-2023 Albumin [Mass/Vol] 4.2 g/dL Normal 3.5-4.6 [facility] Comment on above: Performed By: #### U MARIA ELENA #### [facility] [address] [place] [address] ALP [Catalytic activity/Vol] 89 U/L Normal 40-130 [facility] Comment on above: Performed By: #### U MARIA ELENA #### [facility] [address] [place] [address] ALT [Catalytic activity/Vol] 47 U/L Critically high 0-33 [facility] Comment on above: Performed By: #### U MARIA ELENA #### [facility] [address] [place] [address] Anion gap [Moles/Vol] 13 mmol/L Normal 9-15 [facility] Comment on above: Performed By: #### U MARIA ELENA #### [facility] [address] [place] [address] AST [Catalytic activity/Vol] 44 U/L Critically high 0-35 [facility] Comment on above: Performed By: #### U MARIA ELENA #### [facility] [address] [place] [address] Bilirubin [Mass/Vol] 0.5 mg/dL Normal 0.2-0.7 [facility] Comment on above: Performed By: #### U MARIA ELENA #### [facility] [address] [place] [address] Calcium [Mass/Vol] 9.2 mg/dL Normal 8.5-9.9 [facility] Comment on above: Performed By: #### U MARIA ELENA #### [facility] [address] [place] [address] Chloride [Moles/Vol] 100 mmol/L Normal 95-107 [facility] Comment on above: Performed By: #### U MARIA ELENA #### [facility] [address] [place] [address] CO2 [Moles/Vol] 26 mmol/L Normal 20-31 [facility] Comment on above: Performed By: #### U MARIA ELENA #### [facility] [address] [place] [address] Creatinine [Mass/Vol] 0.54 mg/dL Normal 0.50-0.90 [facility] Comment on above: Performed By: #### U MARIA ELENA #### [facility] [address] [place] [address] GFR >60.0 Normal >60 [facility] Comment on above: Result Comment: Pedi atric [...] tubular secretion. Performed By: #### U MARIA EELNA #### [facility] [address] [place] [address] Globulin (S) [Mass/Vol] 3.9 g/dL Critically high 2.3-3.5 [facility] Comment on above: Performed By: #### U MARIA ELENA #### [facility] [address] [place] [address] Glucose [Mass/Vol] 124 mg/dL Critically high 70-99 [facility] Comment on above: Performed By: #### U MARIA ELENA #### [facility] [address] [place] [address] Potassium [Moles/Vol] 4.4 mmol/L Normal 3.4-4.9 [facility] Comment on above: Performed By: #### U MARIA ELENA #### [facility] [address] [place] [address] Protein [Mass/Vol] 8.1 g/dL Critically high 6.3-8.0 [facility] Comment on above: Performed By: #### U MARIA ELENA #### [facility] [address] [place] [address] Sodium [Moles/Vol] 139 mmol/L Normal 135-144 [facility] Comment on above: Performed By: #### U MARIA ELENA #### [facility] [address] [place] [address] Urea nitrogen [Mass/Vol] 14 mg/dL Normal 6-20 [facility] Comment on above: Performed By: #### U MARIA ELENA #### [facility] [address] [place] [address] Albumin [Mass/Vol] 4.2 g/dL 3.5 - 4.6 g/dL [facility] ALP (Bld) [Catalytic activity/Vol] 89 U/L 40 - 130 U/L [facility] ALT [Catalytic activity/Vol] 47 U/L High 0 - 33 U/L [facility] Anion gap [Moles/Vol] 13 mmol/L [facility] AST [Catalytic activity/Vol] 44 U/L High 0 - 35 U/L [facility] Bilirubin [Mass/Vol] 0.5 mg/dL 0.2 - 0 .7 mg/dL [facility] Calcium [Mass/Vol] 9.2 mg/dL 8.5 - 9.9 mg/dL [facility] Chloride [Moles/Vol] 100 mmol/L [facility] CO2 [Moles/Vol] 26 mmol/L [facility] Creatinine [Mass/Vol] 0.54 mg/dL 0.50 - 0.90 mg/dL [facility] GFR/1.73 sq M.predicted MDRD (S/P/Bld) [Vol rate/Area] 60 - PINF [facility] Comment on above: Pediatric calculator link [...] 3.9 g/dL High 2.3 - 3.5 g/dL [facility] Glucose [Mass/Vol] 124 mg/dL High 70 - 99 mg/dL [facility] Interpretation and review of laboratory results Abnormal [facility] Potassium [Moles/Vol] 4.4 mmol/L [facility] Protein [Mass/Vol] 8.1 g/dL High 6.3 - 8.0 g/dL [facility] Sodium [Moles/Vol] 139 mmol/L [facility] Urea nitrogen (BldV) [Mass/Vol] 14 mg/dL 6 - 20 mg/dL [facility] Laboratory - Coagulationon 0 06-24-2022 INR Coag (Bld) [Relative time] 1.1 {INR} Normal [facility] Work Phone: Laboratory - Hematology and Cell countson 06-24-2022 Basophils/100 WBC (Bld) 0.6 % Normal [facility] Work Phone: Eosinophils/100 WBC (Bld) 1.6 % Normal [facility] Work Phone: Lymphocytes/100 WBC (Bld) 25.8 % Normal [facility] Work Phone: Monocytes/100 WBC (Bld) 9.4 % Normal [facility] Work Phone: Neutrophils/100 WBC (Bld) 62.6 % Normal [facility] Work Phone: [phone] MRSA, DNA, Nasalon 3 Specimen Description Swab Normal [facility] Comment on above: Performed By: #### I MRSA #### [facility] [address] [place] [address] Microscopic Urinalysison Bacteria, UA FEW Abnormal Negative /HPF [facility] Epithelial Cells, UA 0-2 [facility] Hyaline Casts, UA 0-1 [facility] RBC, UA 0-2 [facility] WBC, UA 3-5 [facility] No Panel Informationon 06-24 Interpretation and review of laboratory results Abnormal [facility] TRACE Abnormal Negative [facility] Work Phone: Negative Normal Negative [facility] Work Phone: 0.2 {E.U./dL} Normal < 2.0 [facility] Work Phone: 30 mg/dL Abnormal Negative [facility] Work Phone: [phone] Normal 5.0-9.0 [facility] Work Phone: Not Indicated Normal [facility] Work Phone: [phone] Normal 1.005-1.03 [facility] Work Phone: Clear Normal Clear [facility] Work Phone: Yellow Normal Straw/[place] [facility] Work Phone: 0-2 Normal 0-5 [facility] Work Phone: 3-5 Normal 0-5 [facility] Work Phone: 0-1 Normal 0-5 [facility] Work Phone: FEW Abnormal Negative [facility] Work Phone: [phone] K/uL Normal 130-400 [facility] Work Phone: 16.4 % above high threshold 11.5-14.5 [facility] Work Phone: [phone] 32.0 % below low threshold 33.0-37.0 [facility] Work Phone: [phone] 0.1 K/uL Normal 0.0-0.2 [facility] Work Phone: [phone] 0.8 K/uL Normal 0.2-0.8 [facility] Work Phone: [phone] 2.3 K/uL Normal 1.0-4.8 [facility] Work Phone: [phone] 5.6 K/uL Normal 1.4-6.5 [facility] Work Phone: [phone] 25.1 pg below low threshold 27.0-31.3 [facility] Work Phone: [phone] 78.5 fL below low threshold 79.4-94.8 [facility] Work Phone: [phone] 44.4 % Normal 37.0-47.0 [facility] Work Phone: 14.2 g/dL Normal 12.0-16.0 [facility] Work Phone: 5.66 {M/uL} above high threshold 4.20-5.40 [facility] Work Phone: [phone] 8.9 K/uL Normal 4.8-10.8 [facility] Work Phone: [phone] 14.8 {sec} Normal 12.3-14.9 [facility] Work Phone: 30.1 {sec} Normal 24.4-36.8 [facility] Work Phone: Comment on above: Effective 02/27/2020: Heparin Therapeutic Range: 64.0 ? 98.0 seconds. 4.2 g/dL Normal 3.5-4.6 [facility] Work Phone: [phone] 3.9 g/dL above high threshold 2.3-3.5 [facility] Work Phone: 44 U/L above high threshold 0-35 [facility] Work Phone: [phone] U/L above high threshold 0-33 [facility] Work Phone: 89 U/L Normal 40-130 [facility] Work Phone: [phone] 0.5 mg/dL Normal 0.2-0.7 [facility] Work Phone: [phone] 8.1 g/dL above high threshold 6.3-8.0 [facility] Work Phone: [phone] 9.2 mg/dL Normal 8.5-9.9 [facility] Work Phone: [phone] >60.0 Normal >60 [facility] Work Phone: [phone] Comment on above: Pediatric calculator linkhttps://www.kidney.org/professionals/kdoqi/gfr_calculator [...] [facility] Work Phone: 13 {mEq/L} Normal 9-15 [facility] Work Phone: 26 {mEq/L} Normal 20-31 [facility] Work Phone: 100 {mEq/L} Normal 95-107 [facility] Work Phone: 4.4 {mEq/L} Normal 3.4-4.9 [facility] Work Phone: 139 {mEq/L} Normal 135-144 [facility] Work Phone: Negative Normal NEG [facility] Work Phone: Comment on above: NEGATIVE: MRSA DNA n ot detected by nucleic acid amplification. Results should be used as an adjunct to nosocomial control efforts toidentify patients needing enhanced precautions.The test is not intended to identify patients with staphylococcalinfections. Results should not be used to guide or monitor treatmentfor MRSA infections.[facility] [place] [address] Swab Normal [facility] Work Phone: Partial Thromboplastin Timeo n 06-24-2022 aPTT Coag (Bld) [Time] 30.1 s Normal 24.4-36.8 [facility] Comment on above: Result Comment: Effe ctive 02/27/2020: Heparin Therapeutic Range: 64.0 ? 98.0 seconds. Performed By: #### U MARIA ELENA #### [facility] [address] [place] [address] Prothrombin Timeon 3 INR Coag (PPP) [Relative time] 1.1 {INR} Normal [facility] Comment on above: Performed By: #### P T #### [facility] [address] [place] [address] PT Coag (PPP) [Time] 14.8 s Normal 12.3-14.9 [facility] Comment on above: Performed By: #### P T #### [facility] [address] [place] [address] Protime-INRon 06-24-2022 INR Coag (Bld) [Relative time] 1.1 {INR} [facility] PT Coag (PPP) [Time] 14.8 s [facility] [employer] TYPE AND SCREENon 06-24-2022 ABO/Rh Negative [facility] Comment on above: @06/24/22 14:01 by Elaina FISCHER: BACK TYPE CONFIRMED IN TUBE. LMB Confirmation type ne eds to be drawn. [facility] Type and 3 cell Screen OB Ca ptureon 06-24-2022 Type and 3 cell Screen OB Capture PATIENT: PINKY Prince LOC: [facility]# : [id number] : 1970 SEX: F ORDERED BY: GILMAR COX ORDERED : 06/24/2022 11:08 COLLECTED: 06/24/2022 11:45 ORDER : [id number] RECEIVED : 06/24/2022 11:45 Confirmation type needs to be drawn. --- TEST NAME RESULT UNITS RANGES ABN FL ST [facility] Capture A NEG F @06/24/22 14:01 by RUDY: BACK TYPE CONFIRMED IN TUBE. LMB Antibody 3 Cell Scrn Captu NEG F -- Normal [facility] Comment on above: Performed By: #### T SO3C #### [facility] [address] [place] [address] Urinalysis with Reflex to Cu ltureon 06-24-2022 Bilirubin Urine Negative Negative [facility] Blood, Urine Negative Negative [facility] Clarity, UA Clear Clear [facility] Color, UA Yellow [place]raw/[place] ow [facility] Glucose, Ur Negative Negative mg/dL [facility] Ketones Ql (U) Negative Negative mg/dL [facility] Leukocyte esterase Test strip Ql (U) TRACE Abnormal Negative [facility] Nitrite, Urine Negative Negative [facility] pH, UA 7.0 5.0 - 9.0 [facility] Protein (U) [Mass/Vol] 30 mg/dL Abnormal Negative [facility] Specific [place], UA 1.010 1.005 - 1.030 [facility] Urine Reflex to Culture Not Indicated [facility] Urobilinogen, Urine 0.2 [facility] Urinalysis, reflex to cultur gurinder 06-24-2022 Urine Reflexed to Culture Not Indicated Normal [facility] Comment on above: Performed By: #### U AR #### [facility] [address] [place] [address] Bilirubin Ql (U) Negative Normal Negative [facility] Comment on above: Performed By: #### U AR #### [facility] [address] [place] [address] Clarity (U) Clear Normal Clear [facility] Comment on above: Performed By: #### U AR #### [facility] [address] [place] [address] Color (U) Yellow Normal Straw/[place] [facility] Comment on above: Performed By: #### U AR #### [facility] [address] [place] [address] Glucose Ql (U) Negative Normal Negative [facility] Comment on above: Performed By: #### U AR #### [facility] [address] [place] [address] Hemoglobin Ql (U) Negative Normal Negative [facility] Comment on above: Performed By: #### U AR #### [facility] [address] [place] [address] Ketones Ql (U) Negative Normal Negative [facility] Comment on above: Performed By: #### U AR #### [facility] [address] [place] [address] Leukocyte esterase Test strip Ql (U) TRACE Abnormal Negative [facility] Comment on above: Performed By: #### U AR #### [facility] [address] [place] [address] Nitrite Ql (U) Negative Normal Negative [facility] Comment on above: Performed By: #### U AR #### [facility] [address] [place] [address] pH (U) 7.0 [pH] Normal 5.0-9.0 [facility] Comment on above: Performed By: #### U AR #### [facility] [address] [place] [address] Protein Ql (U) 30 mg/dL Abnormal Negative [facility] Comment on above: Performed By: #### U AR #### [facility] [address] [place] [address] Specific gravity (U) [Rel density] 1.010 Normal 1.005-1.03 [facility] Comment on above: Performed By: #### U AR #### [facility] [address] [place] [address] Urobilinogen Qn (U) 0.2 {Reji'U}/dL Normal < 2.0 [facility] Comment on above: Performed By: #### U AR #### [facility] [address] [place] [address] Urine Microscopicon 06-25-19 23 Urine Bacteria FEW Abnormal Negative [facility] Comment on above: Performed By: #### U MARIA ELENA #### [facility] [address] [place] [address] Urine Epithelial Cells Auto 0-2 Normal 0-5 [facility] Comment on above: Performed By: #### U MARIA ELENA #### [facility] [address] [place] [address] Urine Hyaline Casts Auto 0-1 Normal 0-5 [facility] Comment on above: Performed By: #### U MARIA ELENA #### [facility] [address] [place] [address] Urine RBC Auto 0-2 Normal 0-5 [facility] Comment on above: Performed By: #### U MARIA ELENA #### [facility] [address] [place] [address] Urine WBC Auto 3-5 Normal 0-5 [facility] Comment on above: Performed By: #### U MARIA ELENA #### [facility] [address] [place] [address] BILATERAL KNEE COMPLT, 4 OR MORE VIEWSon 05-18-2022 BILATERAL KNEE COMPLT, 4 OR MORE VIEWS Patient Name: GEETA SHELTON STUDY: BILATERAL KNEE; COMPLT, 4 OR MORE VIEWS; ; 05/18/2022 9:07 am INDICATION: pain M25.561: Acute pain of both knees M25.562:. ACCESSION NUMBER(S): [id number] ORDERING CLINICIAN: ACOSTA SCHAFER FINDINGS: Weightbearing four [...] abnormalities Electronically signed by: ACOSTA SCHAFER MD [facility] Initial Visit (Orthopaedic S urgery)on 05-18-2022 Initial Visit (Orthopaedic Surgery) Diagnoses/Problems Assessed Acute pain of both knees (338.19,719.46) (M25.561,M25.562) Orders Acute pain of both knees Xray Knee Bilateral, Complete, 4 or More Views; Status:Resulted - Preliminary; Done: [id number] 09:07AM Radiologist to Determine Optimal Study : [...] Radiologyon 05-18-2022 XR Knee 4 Views Normal -[facility] Work Phone: Albumin [Mass/volume] in Ser um or PlasmaOrdered By: Elizabeth Alvarado on 05-07-2022 Albumin [Mass/Vol] 3.9 g/dL 3.2-5.5 [facility] Alkaline phosphatase [Enzyma tic activity/volume] in Serum or PlasmaOrdered By: Elizabeth Alvarado on 05-07-2022 ALP [Catalytic activity/Vol] 83 U/L 32-92 [facility] Aspartate aminotransferase [ Enzymatic activity/volume] in Serum or PlasmaOrdered By: Elizabeth Alvarado on 05-07-2022 AST [Catalytic activity/Vol] 56 U/L 10-42 [facility] Basophils Auto (Bld) [#/Vol] Ordered By: Elizabeth Alvarado on 05-07-2022 Basophils (Bld) [#/Vol] 0.1 10*3/uL 0.0-0.2 [facility] Basophils/100 WBC Auto (Bld) Ordered By: Elizabeth Alvarado on 05-07-2022 Basophils/100 WBC (Bld) 0.7 % . F [facility] Bilirubin.total [Mass/volume ] in Serum or PlasmaOrdered By: Elizabeth Alvarado on 05-07-2022 Bilirubin [Mass/Vol] 0.6 mg/dL 0.3-1.2 [facility] Calcium [Mass/volume] in Ser um or PlasmaOrdered By: Elizabeth Alvarado on 05-07-2022 Calcium [Mass/Vol] 9.1 mg/dL 8.2-10.2 [facility] Carbon dioxide, total [Moles /volume] in Serum or PlasmaOrdered By: Elizabeth Alvarado on 05-07-2022 CO2 [Moles/Vol] 28.1 mmol/L 22.0-30.[address] [facility] Chloride [Moles/volume] in S hugo or PlasmaOrdered By: Elizabeth Alvarado on 05-07-2022 Chloride [Moles/Vol] 100 mmol/L 95-114 [facility] Cholesterol [Mass/volume] in Serum or PlasmaOrdered By: Elizabeth Alvarado on 05-07-2022 Cholesterol [Mass/Vol] 181 mg/dL 140-200 [facility] Comment on above: Chol less than 200 m g/dl low riskChol 201-239 mg/dl borderline riskChol 240 mg/dl and greater high risk Cholesterol in LDL Calc [Mas s/Vol]Ordered By: Elizabeth Alvarado on 05-07-2022 Cholesterol in LDL [Mass/Vol] 102 mg/dL 0-100 [facility] Comment on above: LDL ATP III CLASSIFI CATIONLDL less than 100 mg/dL OptimalLDL 100-129 mg/dL Near or above optimalLDL 130-159 mg/dL Borderline highLDL 160-189 mg/dL HighLDL greater than 189 mg/dL Very high Cholesterol in VLDL Calc [Ma ss/Vol]Ordered By: Elizabeth Alvarado on 05-07-2022 Cholesterol in VLDL [Mass/Vol] 20 mg/dL [facility] Creatinine and Glomerular fi ltration rate.predicted panel (S/P/Bld)Ordered By: Elizabeth Alvarado on 05-07-2022 Creatinine [Mass/Vol] 0.65 mg/dL 0.44-1.03 [facility] Eosinophils Auto (Bld) [#/Vo l]Ordered By: Elizabeth Alvarado on 05-07-2022 Eosinophils (Bld) [#/Vol] 0.1 10*3/uL 0.0-0.45 [facility] Eosinophils/100 WBC Auto (Bl d)Ordered By: Elizabeth Alvarado on 05-07-2022 Eosinophils/100 WBC (Bld) 1.8 % . [facility] Erythrocyte distribution wid th Auto (RBC) [Ratio]Ordered By: Elizabeth Alvarado on 05-07-2022 Erythrocyte distribution width (RBC) [Ratio] 17.8 % 11.9-15.3 [facility] Estimated glomerular filtrat ion rate (GFR) non- AmericanOrdered By: Elizabeth Alvarado on 05-07-2022 GFR/1.73 sq M.predicted among non-blacks MDRD (S/P/Bld) [Vol rate/Area] > 60 mL/Min [facility] Globulin Calc (S) [Mass/Vol] Ordered By: Elizabeth Alvarado on 05-07-2022 Globulin (S) [Mass/Vol] 3.7 g/dL [facility] Glucose [Mass/volume] in Ser um or PlasmaOrdered By: Elizabeth Alvarado on 05-07-2022 Glucose [Mass/Vol] 137 mg/dL 70-100 [facility] Comment on above: ADA recommended refe rence rangeRandom Glucose Reference Range is dependent on time and content of last meal. Glucose of more than 200 mg/dL in a nonstressed, ambulatory subject supports the diagnosis of Diabetes Mellitus. Hematocrit Auto (Bld) [Volum e fraction]Ordered By: Elizabeth Alvarado on 05-07-2022 Hematocrit (Bld) [Volume fraction] 45.4 % 34.0-46.4 [facility] Hemoglobin [Mass/volume] in BloodOrdered By: Elizabeth Alvarado on 05-07-2022 Hemoglobin (Bld) [Mass/Vol] 14.1 g/dL 11.8-15.4 [facility] Leukocytes [#/volume] correc silverio for nucleated erythrocytes in Blood by Automated counOrdered By: Elizabeth Alvarado on 05-07-2022 WBC corrected for nucl RBC Auto (Bld) [#/Vol] 7.9 10*3/uL 3.8-11.6 [facility] Lymphocytes Auto (Bld) [#/Vo l]Ordered By: Elizabeth Alvarado on 05-07-2022 Lymphocytes (Bld) [#/Vol] 2.4 10*3/uL 1.00-4.8 [facility] Lymphocytes/100 WBC Auto (Bl d)Ordered By: Elizabeth Alvarado on 05-07-2022 Lymphocytes/100 WBC (Bld) 30.9 % . [facility] MCH Auto (RBC) [Entitic mass ]Ordered By: Elizabeth Alvarado on 05-07-2022 MCH (RBC) [Entitic mass] 24.6 pg 24.7-34.3 [facility] MCHC Auto (RBC) [Mass/Vol]Or dered By: Elizabeth Alvarado on 05-07-2022 MCHC (RBC) [Mass/Vol] 31.0 g/dL 32.0-35.0 [facility] MCV Auto (RBC) [Entitic vol] Ordered By: Elizabeth Alvarado on 05-07-2022 MCV (RBC) [Entitic vol] 79.4 fL 80-100 [facility] Monocytes Auto (Bld) [#/Vol] Ordered By: Elizabeth Alvarado on 05-07-2022 Monocytes (Bld) [#/Vol] 0.7 10*3/uL 0.0-0.8 [facility] Monocytes/100 WBC Auto (Bld) Ordered By: Elizabeth Alvarado on 05-07-2022 Monocytes/100 WBC (Bld) 9.3 % . [facility] Neutrophils Auto (Bld) [#/Vo l]Ordered By: Elizabeth Alvarado on 05-07-2022 Neutrophils (Bld) [#/Vol] 4.5 10*3/uL 1.8-7.7 [facility] Neutrophils/100 WBC Auto (Bl d)Ordered By: Elizabeth Alvarado on 05-07-2022 Neutrophils/100 WBC (Bld) 57.3 % . [facility] No Panel InformationOrdered By: Elizabeth Alvarado on 05-07-2022 Estimated GFR () > 60 mL/Min [facility] Comment on above: GFR estimated refere nce range: According to KDOQI guidelines, <60 ml/min/1.73m2 is sufficient to diagnose a patient with chronic kidney disease. Pharmacy Creatinine Clearance (Chem N/A [facility] Nucleated erythrocytes [Pres ence] in Blood by Automated countOrdered By: Elizabeth Alvarado on 05-07-2022 Nucleated RBC Auto Ql (Bld) 0.1 /100{WBC} 0-0.5 [facility] Platelet mean volume Auto (B ld) [Entitic vol]Ordered By: Elizabeth Alvarado on 05-07-2022 Platelet mean volume (Bld) [Entitic vol] 9.4 fL 6.3-10.7 [facility] Platelets Auto (Bld) [#/Vol] Ordered By: Elizabeth Alvarado on 05-07-2022 Platelets (Bld) [#/Vol] 242 10*3/uL 150-450 [facility] Potassium [Moles/volume] in Serum or PlasmaOrdered By: Elizabeth Alvarado on 05-07-2022 Potassium [Moles/Vol] 4.3 mmol/L 3.5-5.1 [facility] Protein [Mass/volume] in Ser um or PlasmaOrdered By: Elizabeth Alvarado on 05-07-2022 Protein [Mass/Vol] 7.6 g/dL 6.1-7.9 [facility] RBC Auto (Bld) [#/Vol]Ordere d By: Elizabeth Alvarado on 05-07-2022 RBC (Bld) [#/Vol] 5.72 10*6/uL 3.60-5.00 [facility] Serum or plasma alanine ulloa otransferase measurement without P-5'-P (enzymatic activiOrdered By: Elizabeth Alvarado on 05-07-2022 ALT No additional P-5'-P [Catalytic activity/Vol] 61 U/L 10-60 [facility] Serum or plasma albumin/glob ulin mass ratioOrdered By: Elizabeth Alvarado on 05-07-2022 Albumin/Globulin [Mass ratio] 1.1 {ratio} [facility] Serum or plasma anion gap de terminationOrdered By: Elizabeth Alvarado on 05-07-2022 Anion gap [Moles/Vol] 11.2 mmol/L 6.0-15.0 [facility] Serum or plasma high density lipoprotein (HDL) cholesterol measurementOrdered By: Elizabeth Alvarado on 05-07-2022 Cholesterol in HDL [Mass/Vol] 58 mg/dL 35-85 [facility] Comment on above: HDL CHOL ATP-III CLA SSIFICATION Cardiovascular RiskHDL > or equal to 60 mg/dL LOWHDL < 40 mg/dL HIGH Serum or plasma total choles terol/high density lipoprotein (HDL) cholesterol mass ratOrdered By: Elizabeth Alvarado on 05-07-2022 Cholesterol.total/Choles terol in HDL [Mass ratio] 3.1 {ratio} <5.0 [facility] Sodium [Moles/volume] in Ser um or PlasmaOrdered By: Elizabeth Alvarado on 05-07-2022 Sodium [Moles/Vol] 135 mmol/L 136-146 [facility] TSH DL <= 0.005 mIU/L QnOrde red By: Elizabeth Alvarado on 05-07-2022 TSH Qn 4.21 m[IU]/L 0.45-5.33 [facility] Triglyceride [Mass/volume] i n Serum or PlasmaOrdered By: Elizabeth Alvarado on 05-07-2022 Triglyceride [Mass/Vol] 103 mg/dL 35-149 [facility] Comment on above: TRIG ATP III CLASSIF ICATIONTRIG less than 150 mg/dL NormalTRIG 150-199 mg/dL Borderline highTRIG 200-500 mg/dL High TRIG greater than 500 mg/dL Very highStandard traceable to the Center for Disease Conrtrol and Prevention (CDC) test method. Urea nitrogen [Mass/volume] in Serum or PlasmaOrdered By: Elizabeth Alvarado on 05-07-2022 Urea nitrogen [Mass/Vol] 14 mg/dL 9-23 [facility] WBC Auto (Bld) [#/Vol]Ordere d By: Elizabeth Alvarado on 05-07-2022 WBC (Bld) [#/Vol] 7.9 10*3/uL 3.8-11.6 [facility] Basophils Auto (Bld) [#/Vol] Ordered By: Tyler Villeda on 04-13-2022 Basophils (Bld) [#/Vol] 0.1 10*3/uL 0.0-0.2 [facility] Basophils/100 WBC Auto (Bld) Ordered By: Tyler Villeda on 04-13-2022 Basophils/100 WBC (Bld) 0.6 % . [facility] C reactive protein [Mass/vol ume] in Serum or PlasmaOrdered By: Tyler Villeda on 04-13-2022 CRP [Mass/Vol] 2.1 mg/dL 0.0-1.0 [facility] Eosinophils Auto (Bld) [#/Vo l]Ordered By: Tyler Villeda on 04-13-2022 Eosinophils (Bld) [#/Vol] 0.2 10*3/uL 0.0-0.45 [facility] Eosinophils/100 WBC Auto (Bl d)Ordered By: Tyler Villeda on 04-13-2022 Eosinophils/100 WBC (Bld) 2.0 % . [facility] Erythrocyte distribution wid th Auto (RBC) [Ratio]Ordered By: Tyler Villeda on 04-13-2022 Erythrocyte distribution width (RBC) [Ratio] 17.6 % 11.9-15.3 [facility] Erythrocyte sedimentation ra te by Photometric methodOrdered By: Tyler Villeda on 04-13-2022 ESR Photometric method (d) [Velocity] 54 mm/hr 0-29 [facility] Hematocrit Auto (Bld) [Volum e fraction]Ordered By: Tyler Villeda on 04-13-2022 Hematocrit (Bld) [Volume fraction] 44.4 % 34.0-46.4 [facility] Hemoglobin [Mass/volume] in BloodOrdered By: Tyler Villeda on 04-13-2022 Hemoglobin (Bld) [Mass/Vol] 14.3 g/dL 11.8-15.4 [facility] Leukocytes [#/volume] correc silverio for nucleated erythrocytes in Blood by Automated counOrdered By: Tyler Villeda on 04-13-2022 WBC corrected for nucl RBC Auto (Bld) [#/Vol] 8.6 10*3/uL 3.8-11.6 [facility] Lymphocytes Auto (Bld) [#/Vo l]Ordered By: Tyler Villeda on 04-13-2022 Lymphocytes (Bld) [#/Vol] 2.9 10*3/uL 1.00-4.8 [facility] Lymphocytes/100 WBC Auto (Bl d)Ordered By: Tyler Villeda on 04-13-2022 Lymphocytes/100 WBC (Bld) 33.6 % . [facility] MCH Auto (RBC) [Entitic mass ]Ordered By: Tyler Villeda on 04-13-2022 MCH (RBC) [Entitic mass] 24.9 pg 24.7-34.3 [facility] MCHC Auto (RBC) [Mass/Vol]Or dered By: Tyler Villeda on 04-13-2022 MCHC (RBC) [Mass/Vol] 32.2 g/dL 32.0-35.0 [facility] MCV Auto (RBC) [Entitic vol] Ordered By: Tyler Villeda on 04-13-2022 MCV (RBC) [Entitic vol] 77.4 fL 80-100 [facility] Monocytes Auto (Bld) [#/Vol] Ordered By: Tyler Villeda on 04-13-2022 Monocytes (Bld) [#/Vol] 0.9 10*3/uL 0.0-0.8 [facility] Monocytes/100 WBC Auto (Bld) Ordered By: Tyler Villeda on 04-13-2022 Monocytes/100 WBC (Bld) 10.0 % . [facility] Neutrophils Auto (Bld) [#/Vo l]Ordered By: Tyler Villeda on 04-13-2022 Neutrophils (Bld) [#/Vol] 4.6 10*3/uL 1.8-7.7 [facility] Neutrophils/100 WBC Auto (Bl d)Ordered By: Tyler Villeda on 04-13-2022 Neutrophils/100 WBC (Bld) 53.8 % . [facility] Nucleated erythrocytes [Pres ence] in Blood by Automated countOrdered By: Tyler Villeda on 04-13-2022 Nucleated RBC Auto Ql (Bld) 0.1 /100{WBC} 0-0.5 [facility] Platelet mean volume Auto (B ld) [Entitic vol]Ordered By: Tyler Villeda on 04-13-2022 Platelet mean volume (Bld) [Entitic vol] 9.1 fL 6.3-10.7 [facility] Platelets Auto (Bld) [#/Vol] Ordered By: Tyler Villeda on 04-13-2022 Platelets (Bld) [#/Vol] 296 10*3/uL 150-450 [facility] RBC Auto (Bld) [#/Vol]Ordere d By: Tyler Villeda on 04-13-2022 RBC (Bld) [#/Vol] 5.73 10*6/uL 3.60-5.00 [facility] WBC Auto (Bld) [#/Vol]Ordere d By: Tyler Villeda on 04-13-2022 WBC (Bld) [#/Vol] 8.6 10*3/uL 3.8-11.6 [facility] Serum or plasma follitropin measurement (units/volume)Ordered By: Elizabeth Alvarado on 12-03-2021 Follitropin Qn 18.3 m[IU]/mL [facility] Comment on above: FEMALE NORMALS (JUDIE ENOPAUSE) MID-FOLLICULAR PHASE: 3.9-8.8 mIU/mL MID-CYCLE PEAK: 4.5-22.5 mIU/mL MID-LUTEAL PHASE: 1.8-5.1 mIU/mL FEMALE NORMALS (POSTMENOPAUSE): 16.7-113.6 mIU/mL MALE NORMALS: 1.3-19.3 mIU/mL TSH DL <= 0.005 mIU/L QnOrde red By: Elizabeth Alvarado on 12-03-2021 TSH Qn 4.23 m[IU]/L 0.45-5.33 [facility] Total estrogen measurementOr dered By: Elizabeth Alvarado on 12-03-2021 Estrogen [Mass/Vol] 83 pg/mL . [facility] Comment on above: Prepubertal < 40 Female Cycle: 1-10 Days 16 - 328 11-20 Days 34 - 501 21-30 Days 48 - 350 Post-Menopausal 40 - 244 Performed at: - [address] [id number] Business Case Analyst: Virgie Isaac MD, Phone: [phone] Coding Summary.on 01-26-2019 Coding Summary. 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 therapy PYMT PROC APC STAT DESCRIPTION DOCTOR NAME DATE 34113 511 J1 Tenotomy, percutaneous, Thuan Travis DPM 01/24/2019 Achilles tendon (separate procedure); general anesthesia RT Right side (used to identify procedures performed on the right side of the body) 19733 Anesthesia for Shahab Almanzar Jr., DO 01/24/2019 [...] Revised Date Saved: 01/26/2019 11:32 am Normal [facility] Inpatient Patient Summaryon 01-24-2019 Inpatient Patient Summary [facility] Clinical Discharge Instructions PERSON INFORMATION Name: GEETA SHELTON PHYSICIANS Admitting Physician: Thuan Travis DPM Attending Physician: Thuan Travis DPM PCP: Nichole Caballero Discharge Diagnosis: Comment: PATIENT EDUCATION INFORMATION Instructions: Post Op Patient Instructions - FT (Custom); Foot Cryocuff Patient Instructions - FT (Custom); Thaddeus - Post Operative Instructions (Revised 12/20/13) (Custom) ([id number]) Medication Leaflets: Follow up: MEDICATION LIST Comment: Normal [facility] Lyteson 01-24-2019 Anion gap [Moles/Vol] 14 mmol/L Normal 6-16 [facility] Comment on above: Performed By: #### 2 682312, 7799126, 1846183, 84249774, 8033807, 5870294 #### [facility] [address] [place] [address] Chloride [Moles/Vol] 107 mmol/L Normal 101-111 [facility] Comment on above: Performed By: #### 2 426599, 0828772, 5665203, 61272007, 7476991, 1603158 #### [facility] [address] [place] [address] CO2 [Moles/Vol] 23 mmol/L Normal 21-31 [facility] Comment on above: Performed By: #### 2 116654, 4286435, 2320175, 25056407, 3213704, 4247383 #### [facility] [address] [place] [address] Potassium [Moles/Vol] 4.9 mmol/L Normal 3.5-5.3 [facility] Comment on above: Performed By: #### 2 079019, 6615701, 7324785, 24860566, 1496262, 9836902 #### [facility] [address] [place] [address] Sodium [Moles/Vol] 139 mmol/L Normal 135-145 [facility] Comment on above: Performed By: #### 2 148695, 9414462, 7013149, 36336336, 3235255, 8207449 #### [facility] [address] [place] [address] Main OR Intraoperative Recor don 01-24-2019 Main OR Intraoperative Record IntraOp Document Type FT Summary Primary Physician: Thuan Travis DPM Finalized Date/Time: 01/24/19 11:33:24 Pt. Name: GEETA SHELTON/Sex: 1970 Female Med Rec #: [id number] Physician: Thuan Travis DPM Financial #: [id number] Pt. Type: A Room/Bed: [facility] Admit/Disch: 01/24/19 07:58:48 - Institution: [...] Cheryl Role Performed Anesthesiologist Surgeon - Primary RAILROAD WATCHMAN Lye Treater Time In 01/24/19 08:48:00 01/24/19 09:00:00 01/24/19 [...] Jani AGUILAR, Kallie Yuen RN, Zuly Duarte ENDOSCOPY TECHNICAN, Prashant Panda Role Performed Invertebrate Paleontologist - Primary Invertebrate Paleontologist - Other Scrub - Primary Time In [...] RN, Emily A, Schmitz RN, Gerald Veliz ENDOSCOPY TECHNICAN, Prashant M Time Out Complete 01/24/19 08:59:00 [...] AGUILAR, CNOR, Alpa AGUILAR, Zuly Luna, Gerald ENDOSCOPY TECHNICAN, R, Gerald ENDOSCOPY TECHNICAN, Prashant Panda Outcomes Met? Yes Yes Last [...] to transfer/transport General Comments: REPORT GIVEN TO HOOK TENDERRN. Cy PRIDE RN Dressing/Packing FT Pre-Care Text: [...] safely administered during the perioperative period For [facility] please see scanned medication reconcilliation form for medications used at the field during the procedure. Temperature Control Entry 1 Temperature Control BLANKET MISTRAL AIR Quantity 1 Aid TORSO [[id number]][F] Fluid/[place] Unit Mistral warming system Setting HIGH/43 Body Site Upper anterior torso Last Modified By: Kallie Gunter RN 01/24/19 08:46:43 Case Comments Finalized By: Maye Silverio CST Document Signatures Signed By: Kallie Gunter RN 01/24/19 09:26 Maye Silverio CST 01/24/19 11:33 Normal [facility] Main OR PACU I Recordon Main OR PACU I Record PACU Phase I Docum ent Type FT Summary Primary Physician: Thuan Travis DPM Finalized Date/Time: 01/24/19 10:08:45 Pt. Name: GEETA SHELTON/Sex: 1970 Female Med Rec #: [id number] Physician: Thuan Travis DPM Financial #: [id number] Pt. Type: A Room/Bed: Admit/Disch: 01/24/19 07:58:48 [...] By: Swathi Carr RN 01/24/19 10:08 Normal [facility] Main OR PACU II Recordon Main OR PACU II Record PACU Phase II Doc ument Type FT Summary Primary Physician: Thuan Travis DPM Finalized Date/Time: 01/24/19 13:09:21 Pt. Name: GEETA SHELTON/Sex: 1970 Female Med Rec #: [id number] Physician: Thuan Travis DPM Financial #: [id number] Pt. Type: A Room/Bed: [facility] Admit/Disch: 01/24/19 07:58:48 - Institution: [...] Signed By: Keeley Putnam LPN 01/24/19 13:09 [facility] Main OR Preoperative Recordo n 01-24-2019 Main OR Preoperative Record PreOp Document Type FT Summary Primary Physician: Thuan Travis DPM Number: [id number] Finalized Date/Time: 01/24/19 09:12:07 Pt. Name: GEETA SHELTON Austyn/Sex: 1970 Female Med Rec #: [id number] Physician: Thuan Travis DPM Financial #: [id number] Pt. Type: A Room/Bed: [place] [address] Admit/Disch: 01/24/19 07:58:48 - Institution: Case Times [...] By: Kallie Gunter RN 01/24/19 09:12 Normal [facility] Operative Reporton 10--201 9 Operative Report [...] visit. Thuan Travis D.P.M. aek Dictated: 01/24/2019 #[id number] Typed: 01/24/2019 #[id number] cc: Thuan Travis D.P.M. [facility] Comment on above: Result Comment: Elec tronically Signed By: Thuan Travis DPM\.br\Date and Time Signed: 01/24/19 10:24 EDT Patient Education - Texton 1 Patient Education - Text (Inserted Image . Unable to display) [place], [place] Thuan Travis DPM, FACFAS POST OPERATIVE [...] feel free to call the doctor at: [phone] or [phone] Travis paged. ___ Patient signature Date ___ Dr. Anand Sauer DPM, FACFAS Date Revised: 06-02 [facility] Progress Note-Physicianon Progress Note-Physician Patient: GEETA SHELTON [...] 1 ml. Complications: None. Anesthesia type: General. [facility] Comment on above: Result Comment: Elec tronically Signed By: Thuan Travis DPM\.br\Date and Time Signed: 01/24/19 09:27 EDT Coding Summary.on 01-12-2019 Coding Summary. CODING DATE: 019 FINAL [facility] STATUS: Home (Routine DC) PAYOR: [...] CphT Date Saved: 01/12/2019 11:10 am Normal [facility] BUNon 01-11-2019 Urea nitrogen [Mass/Vol] 29 mg/dL High 5-21 [facility] Comment on above: Performed By: #### 2 150161, 2087858, 5639761, 64920747, 0265326, 2556753 #### [facility] [address] [place] [address] CBC w/Indiceson 01-11-2019 Erythrocyte distribution width (RBC) [Ratio] 16.1 % High 10.9-14.2 [facility] Comment on above: Performed By: #### 1 7139867, 0186814, 6771764, 0446285, 7110472 #### [facility] [address] [place] [address] Hematocrit (Bld) [Volume fraction] 42.1 % Normal 34.0-46.0 [facility] Comment on above: Performed By: #### 1 9581010, 3074156, 7593735, 3785831, 6125488 #### [facility] [address] [place] [address] Hemoglobin (Bld) [Mass/Vol] 13.8 g/dL Normal 12.0-16.0 [facility] Comment on above: Performed By: #### 1 3292780, 2859794, 0356895, 2650873, 4921154 #### [facility] [address] [place] [address] MCH (RBC) [Entitic mass] 25.8 pg Low 27.0-34.0 [facility] Comment on above: Performed By: #### 1 0156472, 7530364, 6778867, 4046722, 7619095 #### [facility] [address] [place] [address] MCHC (RBC) [Mass/Vol] 32.8 g/dL Low 33.3-35.7 [facility] Comment on above: Performed By: #### 1 8576803, 7379386, 5642559, 5030393, 8101996 #### [facility] [address] [place] [address] MCV (RBC) [Entitic vol] 78.5 fL Low 80.0-100.0 [facility] Comment on above: Performed By: #### 1 5067387, 2531989, 4500776, 1452755, 1177518 #### [facility] [address] [place] [address] Platelet mean volume (Bld) [Entitic vol] 9.9 fL Normal 6.4-10.8 [facility] Comment on above: Performed By: #### 1 8256097, 8585904, 1895848, 8867085, 2703031 #### [facility] [address] [place] [address] Platelets (Bld) [#/Vol] 283.0 E9/L Normal 150. 0-500. 0 [facility] Comment on above: Performed By: #### 1 8118201, 7499720, 8638988, 4504633, 2818060 #### [facility] [address] [place] [address] RBC (Bld) [#/Vol] 5.4 E12/L Normal 4.3-5.9 [facility] Comment on above: Performed By: #### 1 8679822, 8314023, 7038116, 6377154, 3525355 #### [facility] [address] [place] [address] WBC corrected for nucl RBC Auto (Bld) [#/Vol] 8.6 E9/L Normal 4.0-11.0 [facility] Comment on above: Performed By: #### 1 7577306, 0647968, 7385548, 1101475, 1904246 #### [facility] [address] [place] [address] Creatinineon 01-11-2019 Creatinine [Mass/Vol] 1.0 mg/dL Normal 0.5-1.3 [facility] Comment on above: Performed By: #### 2 972778, 4263958, 0471201, 33585134, 5123523, 4186187 #### [facility] [address] [place] [address] Glucoseon 01-11-2019 Glucose [Mass/Vol] 95 mg/dL Normal 55-199 [facility] Comment on above: Performed By: #### 1 0120748, 7009025, 0134209, 9949672, 6282078 #### [facility] [address] [place] [address] eGFRon 01-11-2019 GFR/1.73 sq M predicted among blacks MDRD (S/P/Bld) [Vol rate/Area] mL/min/{1.73_m2} Normal >=59 [facility] Comment on above: Order Comment: Order added by Discern Expert. Result Comment: eGFR is race adjusted. AA=. Performed By: #### 2 256599, 6544726, 1910510, 58058380, 6438187, 7542746 #### [facility] [address] [place] [address] GFR/1.73 sq M predicted among non-blacks MDRD (S/P/Bld) [Vol rate/Area] 59 mL/min/1.73 m2 Normal >=59 [facility] Comment on above: Order Comment: Order added by Discern Expert. Result Comment: Tobacco Wetter stefanie kidney disease could be indicated at eGFR's of less than 60 mL/min/1.73m2. Kidney failure is indicated at less than 15 mL/min/1.73m2. Performed By: #### 2 173034, 0003459, 9852401, 08244467, 4941594, 9811848 #### [facility] [address] [place] [address] Coding Summary.on 12-15-2018 Coding Summary. CODING DATE: 019 FINAL [facility] STATUS: Home (Routine DC) PAYOR: [...] CphT Date Saved: 12/15/2018 01:36 pm Normal [facility] BUNon 12-14-2018 Urea nitrogen [Mass/Vol] 19 mg/dL Normal 5-21 [facility] Comment on above: Performed By: #### 2 917459, 4314985, 3328335, 93905833, 6857817, 0338733 #### [facility] [address] [place] [address] CBC w/Indiceson 12-14-2018 Erythrocyte distribution width (RBC) [Ratio] 17.1 % High 10.9-14.2 [facility] Comment on above: Performed By: #### 2 586611, 6774883, 4289298, 97925821, 7180775, 8755747 #### [facility] [address] [place] [address] Hematocrit (Bld) [Volume fraction] 41.5 % Normal 34.0-46.0 [facility] Comment on above: Performed By: #### 2 853482, 0088177, 5778695, 61112499, 7859816, 3863556 #### [facility] [address] [place] [address] Hemoglobin (Bld) [Mass/Vol] 13.2 g/dL Normal 12.0-16.0 [facility] Comment on above: Performed By: #### 2 472306, 2641363, 0439428, 14083166, 3901349, 7295494 #### [facility] [address] [place] [address] MCH (RBC) [Entitic mass] 25.0 pg Low 27.0-34.0 [facility] Comment on above: Performed By: #### 2 263808, 0361099, 9418662, 68151950, 8494464, 6864017 #### [facility] [address] [place] [address] MCHC (RBC) [Mass/Vol] 31.7 g/dL Low 33.3-35.7 [facility] Comment on above: Performed By: #### 2 370061, 5523780, 3203574, 52895859, 0218089, 6133324 #### [facility] [address] [place] [address] MCV (RBC) [Entitic vol] 78.7 fL Low 80.0-100.0 [facility] Comment on above: Performed By: #### 2 717743, 2909840, 3205207, 75169952, 7677229, 4314166 #### [facility] [address] [place] [address] Platelet mean volume (Bld) [Entitic vol] 9.4 fL Normal 6.4-10.8 [facility] Comment on above: Performed By: #### 2 482206, 3701164, 2491764, 06626342, 2983026, 6702017 #### [facility] [address] [place] [address] Platelets (Bld) [#/Vol] 268.0 E9/L Normal 150. 0-500. 0 [facility] Comment on above: Performed By: #### 2 209473, 2411633, 2368597, 33641373, 5154266, 4856207 #### [facility] [address] [place] [address] RBC (Bld) [#/Vol] 5.3 E12/L Normal 4.3-5.9 [facility] Comment on above: Performed By: #### 2 118388, 7764450, 3767668, 43711870, 1629995, 4056567 #### [facility] [address] [place] [address] WBC corrected for nucl RBC Auto (Bld) [#/Vol] 10.6 E9/L Normal 4.0-11.0 [facility] Comment on above: Performed By: #### 2 897270, 8055608, 4344484, 18386235, 0530529, 4660473 #### [facility] [address] [place] [address] Creatinineon 12-14-2018 Creatinine [Mass/Vol] 0.7 mg/dL Normal 0.5-1.3 [facility] Comment on above: Performed By: #### 2 558503, 0410737, 2612357, 26872776, 6139255, 9904043 #### [facility] [address] [place] [address] Glucoseon 12-14-2018 Glucose [Mass/Vol] 138 mg/dL Normal 55-199 [facility] Comment on above: Performed By: #### 2 584721, 8861717, 9111170, 29439527, 9576296, 0367780 #### [facility] [address] [place] [address] Lyteson 12-14-2018 Anion gap [Moles/Vol] 17 mmol/L High 6-16 [facility] Comment on above: Performed By: #### 2 286937, 8152975, 2150571, 35532838, 9169071, 6070335 #### [facility] [address] [place] [address] Chloride [Moles/Vol] 95 mmol/L Low 101-111 [facility] Comment on above: Performed By: #### 2 441808, 0620210, 9420920, 90723681, 2025776, 7963820 #### [facility] [address] [place] [address] CO2 [Moles/Vol] 26 mmol/L Normal 21-31 [facility] Comment on above: Performed By: #### 2 972436, 9248264, 7232001, 68000613, 2644531, 3822415 #### [facility] [address] [place] [address] Potassium [Moles/Vol] 3.9 mmol/L Normal 3.5-5.3 [facility] Comment on above: Performed By: #### 2 932058, 9324470, 0061220, 50869489, 3404605, 7811842 #### [facility] [address] [place] [address] Sodium [Moles/Vol] 134 mmol/L Low 135-145 [facility] Comment on above: Performed By: #### 2 838971, 5950657, 5083938, 24733950, 3275965, 1841423 #### [facility] [address] [place] [address] XR Chest 2 Viewson 9 XR Chest [...] MD Transcribed by: MAGEN Technologist: KRISTYN Thornton [facility] eGFRon 12-14-2018 GFR/1.73 sq M predicted among blacks MDRD (S/P/Bld) [Vol rate/Area] mL/min/{1.73_m2} Normal >=59 [facility] Comment on above: Order Comment: Order added by Discern Expert. Result Comment: eGFR is race adjusted. AA=. Performed By: #### 2 222571, 3140620, 0984023, 54856443, 3187912, 4661282 #### [facility] [address] [place] [address] GFR/1.73 sq M predicted among non-blacks MDRD (S/P/Bld) [Vol rate/Area] mL/min/{1.73_m2} Normal >=59 [facility] Comment on above: Order Comment: Order added by Discern Expert. Result Comment: Tobacco Wetter stefanie kidney disease could be indicated at eGFR's of less than 60 mL/min/1.73m2. Kidney failure is indicated at less than 15 mL/min/1.73m2. Performed By: #### 2 919728, 9929824, 5696602, 18360382, 2804720, 3282354 #### [facility] [address] [place] [address] Vital Signs Date Time Vital Sign Value Performing Clinician Facility 09-30-2023 09:36-0400 Body height 165.1 cm PHYSICIAN [facility] 09-30-2023 09:36-0400 Body mass index (BMI) [Ratio] 46.2 kg/m2 PHYSICIAN [facility] 09-30-2023 09:36-0400 Body temperature 97.6 [degF] PHYSICIAN NO [facility] 09-30-2023 09:36-0400 Body weight 126.09 kg PHYSICIAN NO [facility] 09-30-2023 09:36-0400 Diastolic blood pressure 85 mm[Hg] PHYSICIAN [facility] 09-30-2023 09:36-0400 Heart rate 87 /min PHYSICIAN NO [facility] 09-30-2023 09:36-0400 Respiratory rate 20 /min PHYSICIAN NO [facility] 09-30-2023 09:36-0400 SaO2% (BldA) [Mass fraction] 98 % PHYSICIAN [facility] 09-30-2023 09:36-0400 Systolic blood pressure 139 mm[Hg] PHYSICIAN [facility] 03-02-2023 10:45-0500 Body height 165.1 cm Tyler Jean Other [employer] Other 03-02-2023 10:45-0500 Body mass index (BMI) [Ratio] 44.76 kg/m2 Tyler Jean Other [employer] Other 03-02-2023 10:45-0500 Body temperature 96.7 [degF] Tyler Mcnamaratyler Other [employer] Other 03-02-2023 10:45-0500 Body weight 122.02 kg Tyler Jean Other [employer] Other 03-02-2023 10:45-0500 Diastolic blood pressure 82 mm[Hg] Tyler Ted Other [employer] Other 03-02-2023 10:45-0500 Respiratory rate 18 /min Tyler Mcnamaratyler Other [employer] Other 03-02-2023 10:45-0500 SaO2% (BldA) [Mass fraction] 96 % Tyler Mcnamaratyler Other [employer] Other 03-02-2023 10:45-0500 Systolic blood pressure 136 mm[Hg] Tyler Mcnamaratyler Other [employer] Other 09-21-2022 09:11-0400 Body weight 128.72 kg [employer]ES [employer] Elizabethshaun Alvarado Work Phone: [facility] 09-21-2022 09:11-0400 Diastolic blood pressure 91 mm[Hg] [employer]ENT Elizabeth Myerholtz Work Phone: [facility] 09-21-2022 09:11-0400 Heart rate 88 /min [employer]ENT Elizabeth Myerholtz Work Phone: [facility] 09-21-2022 09:11-0400 Respiratory rate 20 /min SALES SPECIAL AGENT Elizabeth Myerholtz Work Phone: [facility] [facility] 09-21-2022 09:11-0400 SaO2% (BldA) [Mass fraction] 96 % SALES SPECIAL AGENT Elizabeth Myerholtz Work Phone: [facility] 09-21-2022 09:11-0400 Systolic blood pressure 145 mm[Hg] RHEA Alvarado Work Phone: [facility] 08-16-2022 13:57-0400 Body temperature 98 [degF] RHEA Alvarado Work Phone: [facility] 08-16-2022 13:42-0400 Body height 165.1 cm RHEA Alvarado Work Phone: [facility] 07-03-2022 08:14-0500 Body temperature 97.9 [degF] Acosta Schafer MD Work Phone: [employer] 07-03-2022 08:14-0500 Diastolic blood pressure 70 mm[Hg] Acosta Schafer MD Work Phone: [employer] 07-03-2022 08:14-0500 Heart rate 83 /min Acosta Schafer MD Work Phone: [employer] [facility] 07-03-2022 08:14-0500 Respiratory rate 18 /min Acosta Schafer MD Work Phone: [employer] 07-03-2022 08:14-0500 SaO2% (BldA) [Mass fraction] 98 % Acosta Schafer MD Work Phone: [employer] 07-03-2022 08:14-0500 Systolic blood pressure 129 mm[Hg] Acosta Schafer MD Work Phone: [employer] [facility] 07-02-2022 09:45-0500 Body mass index (BMI) [Ratio] 50.66 kg/m2 Acosta Schafer MD Work Phone: [employer] [facility] [facility] 07-02-2022 09:45-0500 Body weight 129.73 kg Acosta Schafer MD Work Phone: [employer] 06-24-2022 11:20-0500 Body height 160 cm Mloz Rn [employer] 06-24-2022 11:20-0500 Body mass index (BMI) [Ratio] 50.79 kg/m2 [facility] 06-24-2022 11:20-0500 Body temperature 97.9 [degF] [facility] 06-24-2022 11:20-0500 Body weight 130.05 kg [facility] 06-24-2022 11:20-0500 Diastolic blood pressure 87 mm[Hg] [facility] 06-24-2022 11:20-0500 Heart rate 73 /min Mloz Rn JULIO [employer] 06-24-2022 11:20-0500 Respiratory rate 16 /min Mloz [facility]n [facility] 06-24-2022 11:20-0500 SaO2% (BldA) [Mass fraction] 98 % [facility] 06-24-2022 11:20-0500 Systolic blood pressure 142 mm[Hg] [facility] 05-18-2022 08:46-0500 Body height 165.1 cm Acosta Schafer MD Work Phone: [facility] Work Phone: 05-18-2022 08:46-0500 Body mass index (BMI) [Ratio] 45.93 kg/m2 Acosta Schafer MD Work Phone: -[facility] Work Phone: 05-18-2022 08:46-0500 Body surface area Derived from formula 2.27 m2 Acosta Schafer MD Work Phone: -[facility] Work Phone: 05-18-2022 08:46-0500 Body weight 125.19 kg Acosta Schafer MD Work Phone: [facility] Work Phone: Encounters Encounter Date Encounter Type Care Provider Facility Start: 09-30-2023 End: 09-30-2023 ambulatory PHYSICIAN [facility] Work Phone: Start: 09-30-2023 End: 09-30-2023 Patient encounter procedure PHYSICIAN NO [facility] Ambulatory Work Phone: Start: 09-30-2023 Registered Recurring PHYSICIAN NO [facility] Acute Work Phone: Start: 09-30-2023 ambulatory Elizabeth Alvarado F acility:[facility] Start: 09-07-2023 End: 09-07-2023 Patient encounter procedure PHYSICIAN NO [facility] Work Phone: Start: 08-24-2023 End: 08-24-2023 ambulatory RHEA Alvarado Work Phone: [facility] Work Phone: Start: 08-24-2023 End: 08-24-2023 Patient encounter procedure SALES SPECIAL AGENTNohelia Alvarado Work Phone: [facility] Start: 08-24-2023 End: 08-24-2023 Departed Referred RHEA Alvarado Work Phone: [facility] Start: 05-10-2023 End: 05-10-2023 ambulatory SALES SPECIAL AGENTNohelia Alvarado Work Phone: [facility] Work Phone: Start: 05-10-2023 End: 05-10-2023 Patient encounter procedure SALES SPECIAL AGENT Elizabeth Alvarado Work Phone: [facility] Work Phone: Start: 03-02-2023 End: 03-02-2023 ambulatory Tyler Jean Other [employer] Other Start: 03-02-2023 Office outpatient vi sit 25 minutes Tyler Jean [facility] Start: 02-14-2023 End: 02-14-2023 ambulatory SALES SPECIAL AGENTNohelia Alvarado Work Phone: [facility] Work Phone: Start: 02-14-2023 End: 02-14-2023 Patient encounter procedure RHEA Alvarado Work Phone: [facility] Work Phone: Start: 01-26-2023 [facility] visit new patient Sindy rubio [facility] Start: 01-26-2023 End: 01-26-2023 ambulatory SALES SPECIAL AGENTNohelia Alvarado Work Phone: [employer] Other Start: 01-26-2023 End: 01-26-2023 Patient encounter procedure RHEA Alvarado Work Phone: [facility]XRay [facility] Work Phone: Start: 12-29-2022 Patient encounter procedure Acosta Schafer MD Work Phone: [facility] Work Phone: Start: 12-29-2022 ambulatory Provider Pending Facili ty:[id number] Start: 11-25-2022 End: 11-25-2022 Patient encounter procedure RHEA Alvarado Work Phone: [facility]-Respiratory Therapy Work Phone: Start: 09-22-2022 Patient encounter procedure Acosta Schafer MD Work Phone: [facility] Work Phone: Start: 09-22-2022 ambulatory Provider Pending Facili ty:[id number] Start: 09-21-2022 End: 09-21-2022 ambulatory SALES SPECIAL AGENT Elizabeth Alvarado Work Phone: [facility] Work Phone: Start: 09-21-2022 End: 09-21-2022 Registered Recurring RHEA Johnson Christiano Work Phone: [facility]-Cancer Center Work Phone: Start: 08-11-[address] Acosta Alva yaneli [place] Facility:[id number] Start: 08-04-2022 End: 08-04-2022 Discharged Recurring RHEA Fraserjackie Alvarado Work Phone: [facility]-Physical Therapy [address] Start: 07-23-2022 End: 07-23-2022 ambulatory RHEA Hurley Christiano Work Phone: [facility] Work Phone: Start: 07-23-2022 End: 07-23-2022 Patient encounter procedure RHEA Fraserjackie Alvarado Work Phone: [facility] Work Phone: Start: 07-16-2022 Telephone encounter Acosta Crews MD Work Phone: [facility] Work Phone: Start: 07-14-2022 Patient encounter procedure Acosta Schafer MD Work Phone: [facility] Work Phone: Start: 07-14-[address] Acosta Schafer Facility:[id number] Start: 07-07-2022 AUDIT Acosta sow MD Work Phone: [facility] Work Phone: Start: 07-01-2022 ambulatory Provider Pending Facili ty:[id number] Start: 07-01-2022 End: 07-03-2022 Evaluation and management of inpatient ACOSTA SCHAFER [facility] Start: 07-01-2022 SURGNONUH, Provider: Acosta Schafer, Status: Pen, Time: 7:00 AM Natali Tyson PT, DPT Work Phone: [facility] Work Phone: Start: 07-01-2022 End: 07-03-2022 Evaluation and management of inpatient Acosta Schafer MD Work Phone: [facility] Comment on above: 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 Merrill martinez [facility] Facility:[id number] Start: 06-25-2022 Encounter for other preprocedural examination Mr. Merrill Hernandez [facility] Start: 06-24-2022 End: 06-29-2022 ambulatory ACOSTA SCHAFER [facility] Start: 06-24-2022 End: 06-28-2022 Subsequent hospital visit by physician Juan Manzano [facility]m 2 [facility] Start: 05-18-2022 Patient encounter procedure Acosta Schafer MD Work Phone: [facility] Work Phone: Start: 05-18-[address] Acosta Schafer Facility:[id number] Start: 05-07-2022 End: 05-07-2022 Patient encounter procedure RHEA Alvarado Work Phone: [facility] Work Phone: Start: 04-13-2022 End: 04-13-2022 ambulatory RHEA Alvarado Work Phone: [facility] Work Phone: Start: 04-13-2022 End: 04-13-2022 Patient encounter procedure RHEA Alvarado Work Phone: [facility] Start: 12-17-2021 End: 12-17-2021 Patient encounter procedure RHEA Morinsaige Work Phone: [facility]-Nuc Med [facility] Start: 12-07-2021 End: 12-07-2021 Patient encounter procedure RHEA Morinbijupaula Work Phone: [facility] Start: 12-03-2021 End: 12-03-2021 Departed Referred RHEA Johnson Christiano Work Phone: [facility] Procedures Date Procedure [...] TO MG FOR LOW K Arya Coronado SALES SPECIAL AGENT - FINISH PHOTOGRAPHER Work Phone: Start: 07-03-2022 Blood count complete automated Arya Coronado SALES SPECIAL AGENT - FINISH PHOTOGRAPHER Work Phone: Start: 07-02-2022 Dup-scan xtr veins unilateral/limited study Carlos A Hou DO Work Phone: Start: 07-02-2022 BASIC METABOLIC PANE L W/ REFLEX TO MG FOR LOW K Arya Coronado SALES SPECIAL AGENT - FINISH PHOTOGRAPHER Work Phone: Start: 07-02-2022 Blood count complete automated Arya Coronado SALES SPECIAL AGENT - FINISH PHOTOGRAPHER Work Phone: Start: 07-01-2022 Radiologic examinati on knee 1/2 views Arya Coronado SALES SPECIAL AGENT - FINISH PHOTOGRAPHER Work Phone: Start: 07-01-2022 End: 07-01-2022 Revj [...] Start: 12-17-2021 Radionuclide three-p hase bone study SALES SPECIAL AGENTNohelia Alvarado Work Phone: Start: 12-07-2021 US scan of thyroid RHEA Alvarado Work Phone: Start: 02-01-2019 Anesthesia consultation Start: 01-24-2019 Anesthesia consultation Plan of Treatment Date Care Activity Detail Author Start: 06-29-2023 FUV, Provider: Acosta Schafer, Status: Pen, Time: 2:15 PM FUV, Provider: Acosta Schafer, Status: Pen, Time: 2:15 PM [facility] [facility] Work Phone: Start: 02-17-2023 Screening for malign ant neoplasm of colon [facility] Start: 12-29-2022 FUV, Provider: Acosta Schafer, Status: Pen, Time: 1:45 PM FUV, Provider: Acosta Schafer, Status: Pen, Time: 1:45 PM -[facility] [place] Work Phone: Start: 08-11-2022 FUV, Provider: Acosta Schafer, Status: Pen, Time: 9:45 AM FUV, Provider: Acosta Schafer, Status: Pen, Time: 9:45 AM [facility] [place] Work Phone: Start: 07-23-2022 [facility] Start: 07-14-2022 POV, Provider: Acosta Schafer, Status: Pen, Time: 9:00 AM POV, Provider: Acosta Schafer, Status: Pen, Time: 9:00 AM [facility] [place] Work Phone: Start: 07-01-2022 End: 07-01-2022 Admission to same day surgery center 07/01/2022 Surgery IP Unit Acosta Schafer MD [id number] [place] [address] RIGHT KNEE RIGHT TOTAL KNEE REVISION INSTRUMENTATION ANTONELLA FEMORAL & SCIATIC BLOCK [facility] OR Comment on above: RIGHT KNEE RIGHT TOT AL KNEE REVISION INSTRUMENTATION ANTONELLA FEMORAL & SCIATIC BLOCK Start: 07-01-2022 End: 07-01-2022 Revj total knee arthrp w/wo algrft 1 component KNEE TOTAL ARTHROPLASTY REVISION Loosening of unicondylar knee replacement (HCC) 07/01/2022 10:50 AM [facility] Start: 07-01-2022 Subsequent hospital visit by physician 07/01/2022 Hospital Encounter IP Unit Acosta Schafer MD [id number] [place] [address] [facility] [place] Start: 07-01-2022 SURGNON, Provider: Acosta Schafer, Status: Pen, Time: 7:00 AM SURGNON, Provider: Acosta Schafer, Status: Pen, Time: 7:00 AM [facility] [place] Work Phone: Start: 06-25-2022 PREADMIT, Provider: Merrill Alejandro, Status: Pen, Time: 1:45 PM PREADMIT, Provider: Merrill Alejandro, Status: Pen, Time: 1:45 PM [facility] Work Phone: Start: 06-25-2022 [id number], Provider : Natali Tyson, Status: Pen, Time: 1:00 PM [id number], Provider: Natali Tyson, Status: Pen, Time: 1:00 PM [facility] Work Phone: Start: 06-24-2022 Annual Wellness Visi t (AWV) Annual Wellness Visit (AWV) [facility] Start: 12-17-2021 Radionuclide three-p hase bone study NM bone 3 phase [facility] Start: 12-17-2021 End: 12-17-2021 Patient encounter procedure Departed [facility] Start: 12-07-2021 US scan of thyroid US thyroid [facility] Start: 12-07-2021 End: 12-07-2021 [facility] Start: 11-23-2021 Influenza vaccination Flu vaccine (# 1) [facility] Start: 05-18-2021 COVID-19 Vaccine (4 - Booster for Moderna series) COVID-19 Vaccine (4 - Booster for Moderna series) [facility] Start: 02-23-2018 Screening for malign ant neoplasm of breast Breast cancer screen [facility] Start: 02-23-2018 Shingles vaccine (1 of 2) Shingles v accine (1 of 2) [facility] Start: 02-23-2013 Screening for malign ant neoplasm of colon [facility] Start: 2008 Lipid panel Lipids [facility] Start: 02-23-2003 Diabetes screen Diabetes screen [facility] Start: 02-23-1998 Screening for malign ant neoplasm of cervix [facility] Start: 02-23-1989 Screening for malign ant neoplasm of cervix Pap smear [facility] Start: 02-23-1987 DTaP/Tdap/Td vaccine (1 - Tdap) DTaP/Tdap/Td vaccine (1 - Tdap) [employer] Start: 02-23-1986 Hepatitis C screening Hepatitis C sc reen [facility] Start: 02-23-1983 HIV screening HIV screen [employer] Start: 1980 Depression Screen Depression Screen [facility] [employer] Start: 1970 COVID-19 Vaccine (#1) COVID-19 Vacci ne (#1) [employer] End: 07-04-2022 Basic Metabolic Panel w/ Reflex to MG Basic Metabolic Panel w/ Reflex to MG Lab Routine Daily for 3 Days starting 07/02/2022 until 07/04/2022, 2 completed [employer] Phone: Comment on above: Daily for 3 Days sta rting 07/02/2022 until 07/04/2022, 2 completed End: 07-04-2022 CBC panel - Blood by Automated count CBC Lab Routine Daily for 3 Days starting 07/02/2022 until 07/04/2022, 2 completed [employer] Phone: Comment on above: Daily for 3 Days sta rting 07/02/2022 until 07/04/2022, 2 completed Comprehensive metabo lic 2000 panel - Serum or Plasma [facility] Comprehensive metabo lic 2000 panel - Serum or Plasma [facility] IgA [Mass/volume] in Serum or Plasma [facility] IgG [Mass/volume] in Serum or Plasma [facility] IgM [Mass/volume] in Serum or Plasma [facility] Oxygen therapy [[facility] Data Set] Initiate Oxygen Therapy Protocol Respiratory Care Routine Daily until discontinued starting 07/01/2022 [facility] [employer] Phone: Comment on above: Daily until disconti nued starting 07/01/2022 Spirometry panel Incentive tonja metry Respiratory Care Routine Every 2hr while awake until discontinued starting 07/01/2022 [facility] [employer] Phone: Comment on above: Every 2hr while awak e until discontinued starting 07/01/2022 [facility] Immunizations Immunization Date Immunization Notes Care Provider Fa cilirowdy 03-16-2016 influenza virus vaccine, unspecified formulation SALES SPECIAL AGENT Elizabeth Christiano Work Phone: [facility] 03-16-2016 influenza, injectabl e, quadrivalent, preservative free Sindy Davila Other [facility] Other Payers Date Payer Category Payer Medicaid [id number] 2022 Self-pay [id number] 2014 Private Health Insurance [id number] 1970 Unknown [id number]. 182 1968 Unknown [id number]. 182 1968 Unknown [id number]. 356 1968 Unknown [id number] [id number]. 1067 1968 Unknown [id number] [id number]. 1067 1968 Unknown [id number] [id number]. 1067 1968 Unknown [id number] [id number]. 1067 1968 Unknown [id number] 2.16.840.1.464068.3.579.2. 1067 1968 Unknown [id number] 2.16.840.1.746175.3.579.2. 1067 1968 Unknown [id number] [id number]. 1068 Medicare Medicare [id number] Medicare [id number] Medicare [place] [employer] Dual Adv JRG [id number] Private Health Insurance [employer] [facility] PFFS 1 [id number] Unknown [facility] E DUAL COMPLETE Unknown [id number]. 531 Social History Date Type Detail Facility Start: 06-03-2017 End: 09-21-2022 Tobacco smoking status NHIS Never smoked tobacco (finding) [facility] Start: 1970 Sex Assigned At Female F [facility] Start: 06-24-2022 Tobacco use and exposure Smokeless tobacco non-user [employer] Phone: Start: 06-24-2022 End: 07-02-2022 Alcohol intake Current drinker of alcohol (finding) [employer] Phone: Start: 06-24-2022 Alcohol Comment occasional [employer] Phone: Start: 1970 Sex Assigned At Not on file B ON [employer] Phone: Start: 06-14-2022 End: 06-24-2022 Exposure to SARS-CoV-2 (event) Not sure [employer] Phone: Sex Assigned At Sex Assigned At [facility] th [facility] [email or web address] Other Medical Equipment Procedure Code Equipment Code Equipment Origin al Text Equipment Identifier Dates Cement Bioprep S t - [id number] Start: 07-01-2022 Stem Tib [id number] [id number] Knee Tot Stbl Joey Roberta [employer] - [id number] , [id number] FDA Start: 07-01-2022 Clinical Notes [...] of both lower extremities (ICD-10 - I87.303) [employer] Other 10-04-2023 Evaluation note* Encounter Date Diagnosis [...] Bilateral lower extremity edema (ICD-10 - R60.0) [employer] Other 04-24-2023 Consult note Author Zoey Ramirez [facility] August 16, 2022 3:19pm Note Date/Time August 16, 2022 2:2 0pm [facility] [place] [address] Hem/Onc Consult Note - OP Signed Patient: Geeta Shelton MR#: [id number] : 1970 Acct:[id number] Age/Sex: 52 / F Type: REG RCR Copies to: Elizabeth Alvarado APRN,FINISH PHOTOGRAPHER Lorrie Baig DO~ HPI Date/Time of Service: Date of Service: 08/16/2022 Time of Service: 14:19 Referring Provider/PCP: Referring Provider: Lorrie Baig DO PCP: Elizabeth Alvarado APRN, HYDROMETER CALIBRATOR-C - History of Present Illness Reason for [...] and/or blood disorder. No history of thrombosis. [facility] - Medical History Medical History: Medical History [...] Additional comments: Patient: Geeta Shelton MR#: [id number] : 1970 Acct:[id number] Age/Sex: 51 / F ADM Date: 2 Loc: OK Room: Type: [facility] Attending Dr: Tyler Villeda PA-C Copies to: CARLI Noyola Jeffrey S DO~ Ordering Provider: Tyler Villeda PA-C Date of Service: 12/17/21 OK/OK bone 3 phase: M25.562, M25.561 Nuclear medicine [...] the knee hardware bilaterally. This may bepostsurgical. OK/OK bone 3 phase IMPRESSION: Intense uptake of [...] for coordination of care (as documented) and [id number] counseling of patient and/or family. Dictated By: Zoey Ramirez APRN DD/ [id number] Signed By: <Electronically signed by RHEA Ramirez> 08/16/22 4532 [facility] Work Phone: [phone] 371-919903-11-2023 History of Present illness Narrative* Sosa Poon [...] after removal as ordered. Patient has [facility] set up. Knee immobilizer sent [...] Med Surg Daily Treatment Note Facility/Department: [address] Room: W268/W268-01 NAME: Geeta Shelton : [...] BLOCK-DEMETRIA performed by Acosta Schafer MD at [facility] Chart Reviewed: Yes Restrictions: Restrictions/Precautions: Fall [...] Recommendations: Continue to assess pending progress Goals Alf Goals Alf Goal 1: Bed mobility with indep Alf Goal 2: Functional transfes with indep Alf Goal 3: Amb 50ft with 2ww and indep Alf Goal 4: 4 steps with handrail and SBA Alf Goal 5: indep with HEP to improve [...] Med Surg Daily Treatment Note Facility/Department: [address] Room: [place] [address] NAME: Geeta Shelton : 1970 (52 y.o.) [...] Recommendations: Continue to assess pending progress Goals Alf Goals Alf Goal 1: Bed mobility with indep [employer] Goal 2: Functional transfes with indep Alf Goal 3: Amb 50ft with 2ww and indep [employer] Goal 4: 4 steps with handrail and SBA Alf Goal 5: indep with HEP to improve [...] to accomplish the task * Arya Coronado, SALES SPECIAL AGENT - FINISH PHOTOGRAPHER - 07/02/2022 9:49 AM EST Progress Note [...] pack per his order. * ChrissSuresh Aparicio, STEAM SETTER - 07/01/2022 5:51 PM EST Images from [...] puffs by inhalation with spacer [] Ipratropium [place] 0.02% unit dose by aerosol Ipratropium [place] MDI 2 puffs by inhalation with spacer [] Duoneb (Ipratropium + Albuterol) unit dose by aerosol Ipratropium MDI + Albuterol MDI 2 puffs byinhalation w/spacer MDI to Aerosol [] Albuterol Sulfate MDI Albuterol Sulfate 0.083% unit dose by aerosol [] Levalbuterol MDI 2 puffs by inhalation Levalbuterol 1.25 mg unit dose by aerosol [] Ipratropium [place] MDI by inhalation Ipratropium [place] 0.02% unit dose by aerosol [] Combivent (Ipratropium + Albuterol) MDI by inhalation Duoneb (Ipratropium + Albuterol) unit doseby aerosol Treatment Assessment [Frequency/Schedule]: Change frequency to: NO CHANGE per Protocol, P&T, [facility] Points 0 1 2 3 4 [...] CODE STATUS: Full Code Room: [place] [address] Date of Service: 07/01/2022 Patient Diagnosis(es): Loosening [...] Ambulation Assistance: Independent Transfer Assistance: Independent Active [employer] Operator: Yes Mode of Transportation: Car OBJECTIVE: Orientation Status: Orientation Overall Orientation Status: Within Functional Limits Orientation Level: Oriented X4;Oriented to place;Oriented to time;Oriented to situation;Oriented toperson Observation: Observation/Palpation Posture: Good Observation: right knee incision with bandage and knee immobilizer in place Cognition Status: Cognition Overall Cognitive Status: [facility] Cognition Comment: Follows commands consistently Perception Status: [...] How much help for eating meals?: None [facility] Inpatient Daily Activity Raw Score: 19 [facility] Inpatient ADL T-Scale Score : 40.22 [...] Physical Therapy Med Surg Initial Assessment Facility/Department: [address] ORTHO TELE Room: [facility]/[place] [address] NAME: Geeta Shelton : 1970 (52 y.o.) [...] Ambulation Assistance: Independent Transfer Assistance: Independent Active [employer] Operator: Yes Mode of Transportation: Car OBJECTIVE: Vision [...] Goals: Patient Goals : to go home [employer] Goals Alf Goal 1: Bed mobility with indep Alf Goal 2: Functional transfes with indep Alf Goal 3: Amb 50ft with 2ww and indep Director [employer] Goal 4: 4 steps with handrail and SBA Alf Goal 5: indep with HEP to improve LE strength and ROM [facility] (6 CLICK) [...] accomplish the task documented [facility] [employer] Work Phone: [phone]) 648-714803-09-2023 History of Present illness Narrative* History of [...] will most likely do this at [facility] in [place]. * Physical exam * General: No acute [...] grammatical areas may persist related to the [employer] software * Merrill Alejandro PA-C * . [facility] Work Phone: [phone]) 262-314303-07-2023 Hospital Discharge instructions* Discharge Instructions* Arya Coronado [...] remove dressing and start using instructions above Diagonal will be removed on post-operative day 14 [...] Hospital Unit/Room#: W268/W268-01 Discharging Unit Phone Number: [phone] Emergency Contact: Extended Emergency Contact Information Primary Emergency Contact: kena travis Relation: Other Past Surgical History: Past Surgical History: Procedure Laterality Date JOINT REPLACEMENT Left knee PARTIAL KNEE ARTHROPLASTY Right REVISION TOTAL KNEE ARTHROPLASTY Right 07/01/2022 RIGHT KNEE RIGHT TOTAL KNEE REVISION INSTRUMENTATION ANTONELLA FEMORAL & SCIATIC BLOCK-DEMETRIA performed by Acosta Schafer MD at [facility] [place] Immunization History: There is no immunization [...] Assisted Dressing Assisted Toileting Independent Feeding Independent Tread Cutter Independent Med Delivery whole Wound Care Documentation [...] applicable) Name: Address: Dialysis Schedule: Phone: Fax: [employer]roleum [employer] 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 Update Admission H&P: {CHP DME Changes in HandP:690479449} PHYSICIAN SIGNATURE: {Esignature:864931224} * Attachments The following attachments cannot be sent through Care Everywhere. * Total Knee Replacement Surgery: General Info (Jamaican) * Wound: VAC (Vacuum-Assisted Closure) (Jamaican) documented in this encounterCH[facility] Work Phone: 1(684) 736-848603-02-2023 History of Present illness Narrative* Sindy Pelaez RN - 06/24/2022 11:10 AM EST Yellow PAT and Dynahex instruction sheet reviewed with patient, who verbalized understanding. documented in this encounterCH[facility] Work Phone: evaluation noteNo assessment information available [facility] Work Phone: Evaluation note* Diagnosis Status post revision of total knee replacement, right- Primary Status post revision of total replacement of right knee Acute postoperative pain Other acute postoperative pain documented in this encounter [facility] Work Phone: evaluation note* Diagnosis Onset Date Resolution Status MGUS (monoclonal gammopathy of unknown significance) acute Microcytosis acute Peripheral neuropathy acute [facility] Work Phone: Evaluation note* Diagnosis Onset Date Resolution Status MGUS (monoclonal gammopathy of unknown significance) acute Microcytosis acute Peripheral neuropathy acute MGUS (monoclonal gammopathy of unknown significance) acute [facility] Work Phone: History general Narrative - Reported* Type Description Date Medical History asthma Medical History snoring Medical History Allergic Rhinitis Medical History Essential Hypertension Surgical History Revise/Replace left knee joint Surgical History Varicose Veins 2009 Surgical History Right ankle surgery Hospitalization History See above [employer] Other History of Present illness Narrative* New [...] grammatical areas may persist related to the [employer] software * Acosta Schafer MD * Senior Attending Physician * [facility] [place] * . -[facility] Work Phone: History of Present illness Narrative* [...] grammatical areas may persist related to the [employer] software * Acosta Schafer MD * Senior Attending Physician * [facility] * [facility] [place] * . -[facility] Work Phone: History of Present illness Narrative* [...] will be re-assessed and goals updated. [facility] Work Phone: History of Present illness Narrative* [...] will be re-assessed and goals updated. [facility] Work Phone: History of Present illness Narrative* [...] Schafer MD * Senior Attending Physician * [facility] [place] * . -[facility] Work Phone: History of Present illness Narrative* [...] grammatical areas may persist related to the [employer] software * Merrill Alejandro PA-C * . -[facility] Work Phone: Progress note Author Krzysztof Salazar [facility] September 21, 2022 9:52am Note Date/Time September 21, 2022 9:49a m [facility] [place] [address] Hem/Onc Follow Up Note - OP Signed Patient: Geeta Shelton MR#: [id number] : 1970 Acct:[id number] Age/Sex: 52 / F Type: REG RCR [...] of gait ataxia and cane usage in themist. Patient is ambulatory with no use of cane today; gait is slow but normal/steady. The patient is alert and oriented x3 - Time with Patient Coordination of Care & Counseling Time: Greater than 50% of time spent with patient was for coordination of care (as documented) and capy-tj-cdir counseling of patient and/or family. [facility] - Medical History Medical History: Medical History [...] by Krzysztof Salazar II, > 09/21/22 0952 [facility] Work Phone: Reason for visit Narrative* Initial Evaluation, Pre-Op . * [facility]fer [facility] Work Phone: Reason for visit Narrative* Initial Evaluation, Pre-Op . * Referred by: Dr. Acosta Schafer [facility] Work Phone: Summary Purpose Family History No [...] replacement of right knee Born, Arya Harry, SALES SPECIAL AGENT - FINISH PHOTOGRAPHER [address] [place] [address] Referral ID Status Reason Start Date Expiration Date V isits Requested Visits Authorized [id number] [facility] Required 07/01/2022 07/01/2023 1 1 Question Answer I certify that I, or a nurse practitioner or physician assistant customer service manager working with me, had an in-person encounter with the patient and the reason for the home care services is documented in the clinical note on: 07/01/2022 Will the referring provider be the attending provider for home health? [place] of attending provider for home health Dr. [...] content) DATE CREATED AUTHOR 02/01/2019 Rober Renteriaus [facility] ical Center DATE CREATED AUTHOR AUTHOR'S ORGANIZ ATION 07/04/2022 [facility] DATE CREATED AUTHOR AUTHOR'S ORGANIZ ATION 07/08/2022 [facility] ical Center DATE CREATED AUTHOR AUTHOR'S ORGANIZ ATION 12/30/2022 [employer] DATE CREATED AUTHOR AUTHOR'S ORGANIZ ATION 01/09/2023 [facility] DATE CREATED AUTHOR AUTHOR'S ORGANIZ ATION 06/12/2024 [facility] DATE CREATED AUTHOR AUTHOR'S ORGANIZ ATION 10/04/2024 [facility] ys[facility] Group Care Teams (unrecognized sec tion and content) Team Status: Active Member Role Status Dates Elizabeth Alvarado APRN HYDROMETER CALIBRATOR-C Primary Care Provide r Active Team Status: Inactive Member Role Status Dates Elizabeth Alvarado APRN HYDROMETER CALIBRATOR-René Primar y Care Provider, Attending Provider Active Team Status: Inactive Member Role Status Dates Elizabeth Alvarado APRN HYDROMETER CALIBRATOR-C Primary Care Provide r Active Lorrie Baig DO Attending Provider Active Team Status: Inactive Member Role Status Dates Elizabeth Alvarado APRN HYDROMETER CALIBRATOR-C Primary Care Provide r Active Tyler Villeda PA-C Attending Provider Active Team Status: Inactive Member Role Status Dates Elizabeth Alvarado APRN HYDROMETER CALIBRATOR-C Attending Provider A ctive Services Family [facility] Primary Care Provider Active Strategic Client Executive Relationship Specialty Start Date End Date Elizabeth Alvarado PCP - General 07/01/22 Team Status: Active Member Role Status Dates Elizabeth Alvarado APRN HYDROMETER CALIBRATOR-C Primary Care Provide r Active Zoey Ramirez APRN Attending Provider Active Lorrie Baig DO Referring Provider Active Team Status: Inactive Member Role Status Dates Elizabeth Alvarado APRN HYDROMETER CALIBRATOR-C Primary Care Provide r Active Acosta Schafer Attending Provider Active Team Status: Inactive Member Role Status Dates Elizabeth Alvarado APRN HYDROMETER CALIBRATOR-C Primary Care Provide r Active Sindy Davila HYDROMETER CALIBRATOR-C Attending Provider Active Team Status: Inactive Member Role Status Dates Elizabeth Alvarado APRN HYDROMETER CALIBRATOR-C Attending Provider A ctive Start: August 24, 2023 End: August 24, 2023 Team Status: Active Member Role Status Dates PHYSICIAN NO FAMILY Primary Care Provider Active Team Status: Inactive Member Role Status Dates Elizabeth Alvarado APRN HYDROMETER CALIBRATOR-C Attending Provider A ctive Start: September 07, 2023 End: September 07, 2023 PHYSICIAN NO FAMILY Primary Care Provider Active Start: September 07, 2023 End: September 07, 2023 Team Status: Active Member Role Status Dates Elizabeth Alvarado APRN HYDROMETER CALIBRATOR-C Primary Care Provide r Active Start: September 30, 2023 Zoey Ramirez APRN Active Start: September 30, 2023 Lorrie Baig DO Referring Provider Active Sta rt: September 30, 2023 Krzysztof Salazar II, DO Attending Provider Active Start: September 30, 2023 Team Status: Inactive Member Role Status Dates Elizabeth Alvarado APRN HYDROMETER CALIBRATOR-C Primary Care Provide r Active Start: September [...] 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 GA REVJ TOTAL KNEE ARTHRP W/WO ALGRFT 1 COMPONENT GA REVJ TOT KNEE ARTHRP FEM&ENTIRE TIBIAL COMPONE RIGHT KNEE RIGHT TOTAL KNEE REVISION INSTRUMENTATION ANTONELLA FEMORAL & SCIATIC BLOCK Acosta Schafer MD [address] [place] [address] [facility] [address] [place] [address] Referral ID Status Reason Start Date Expiration Date Visits Re quested Visits Authorized [id number] 1 1 Ordered Prescriptions (unrec ognized section [...] at 250 mL/hr, Administer over 60 Minutes, COMPUTER OPERATIONS MANAGER TO O.R., On Renee 07/01/22 at 0845, [...] (NoRateChange - Provider: Yang Mccollum APRN - HUSBANDRY TECHNICIAN)1311 (Anesthesia Volume Adjustment - Provider: Yang Mccollum APRN - TOMMIE)1324 (Anesthesia Volume Adjustment - Provider: Yang Mccollum APRN - HUSBANDRY TECHNICIAN) lactated ringers IV soln infusion IntraVENous, at [...] BE BASED ON THE PRIMARY CLINICAL RECORDS. [employer] [facility]. provides no warranty or guarantee of the accuracy or completeness of information in this document.
== END 2024-12-27 13:50 | disposition home or self-care (01) ==
LOC: WC 13:49
PROVIDERS: Visit Provider Physician Assistant
DX: E11.621 Type 2 diabetes mellitus with foot ulcer (principal); L97.415 Non-pressure chronic ulcer of right heel and midfoot with muscle involvement without evidence of necrosis
CPT/HCPCS: 11043

== ENCOUNTER 2025-01-08 08:46 | Outpatient (OUT) | payer MEDICARE, MEDICAID, SELFPAY ==
--- OUTSIDE RECORDS SUMMARY | 2014-02-13 04:00 | XMS_ITS | Continuity of Care Document ---
Author Organization [facility] Address [address] [place] [address] Phone Care Team Providers Care Search Engine Optimization Specialist Name Role Phone Lazaro SUBHA July Unavailable [...] Diagnoses Date Provider Providers Copied on Encounter [facility], [address] [place] [address], [id number], [place] tel:[phone] Dental Clinic Dental examination Lazaro DMD July. [address] [place], [place], [id number], [place]. tel:[phone] [facility], [address] [place], [place], [id number], tel:[phone] Dental Clinic Dental examination Lazaro DMD Susan. [address] [place], [place], [id number], [place]. tel:[phone] [facility], [address] [place], [place], [id number], [place] tel:[phone] Dental Clinic Dental examination Sergey Higginbotham. [address] [place], [place], [id number], [place]. tel:[phone] Family History Family Member Type Diagnosis Age At Onset No Information Payers Payer name Insurance type Covered alliance party ID Lisbethrich fermin(s) D Medicaid Primary [facility] [id number] Social History Type Description Quantity Date Captured [...]
--- OUTSIDE RECORDS SUMMARY | 2024-02-15 04:15 | XMS_ITS ---
Author Organization The [facility] in [place] Address [address] [place] [address] Care Team Providers Care Air Quality Specialist Name Role Phone Nahid HAMM, Mimi Primary Care Provider Jun Fair [phone] REASON FOR VISIT 3 weeks -- has new insurance Encounters Encounter Location Date Provider Diagnosis [facility] (PODIATRY) [address] [place] [address] [place] [address] 02/15/2024 Jun Gentile Plan Of Treatment No Information Progress Notes * Anita VANCEDOB: 8 (54 yo F)Acc No.[id number]:02/15/2024 UNLOCKED PROGRESS NOTE Follow Up Patient: Anita IBANEZ Provider: Rad Gentile DPM, MS :1970 A ge:53 Y S ex:Female Date:02/15/2024 Address:[address] [place], [place] [id number] Pcp:Mimi Whitfield NP Subjective: * Chief Complaints: * 1 . 3 weeks -- has new insurance. * Medical History: Objective: * Vitals: Assessment: Plan: * Treatment: * * Electronic signature of Chad Gentile DPM on 01/08/2025 at 08:52 AM EDT Sign off status: Pending Visit Status: N /S N/C (No Show/No Charge) * Provider: Rad Gentile DPM, MS Date: 1 Generated for Printi ng/Faxing/eTransmitting on: 0 01/08/2025 08:52 AM EDT
--- OUTSIDE RECORDS SUMMARY | 2024-06-05 09:15 | XMS_ITS ---
Author Organization The [facility] in [place] Address [address] [place] [address] Care Team Providers Care Shift Leader Name Role Phone Nahid HAMM, Mimi Primary Care Provider Jun Fair Unavailable [phone] REASON FOR VISIT rt ankle pain/ swollen Encounters Encounter Location Date Provider Diagnosis [facility] (PODIATRY) [address] [place] [address] [place] [address] 06/05/2024 Jun Gentile Pain in right ankle [...] Notes * VANCEAnitaDOB: [birth year] (54 yo F)Acc No.[id number]:06/05/2024 UNLOCKED PROGRESS NOTE Follow Up Patient: Anita IBANEZ Provider: Rad Gentile DPM MS :1970 A ge:54 Y S ex:Female Date:06/05/2024 [address] [facility] [address] [id number] Pcp:Mimi Whitfield NP Subjective: * Chief Complaints: * 1 . Rt ankle pain/ swollen. * Medical History: Objective: * Vitals: Assessment: * Assessment: 1. P ain in right ankle and joints of right foot - M25.571 Plan: * Treatment: * * Electronic signature of Chad Gentile DPM on 01/08/2025 at 08:50 AM EDT Sign off status: Pending Visit Status: C ANC (Cancelled) * Provider: Rad Gentile DPM, MS Date: 0 06/05/2024 Generated for Jacki gallo/Saloni/Pippa on: 0 01/08/2025 08:50 AM EDT
--- OUTSIDE RECORDS SUMMARY | 2024-09-06 05:30 | XMS_ITS ---
Author Organization [facility] es Address [address] [place] [address] Care Team Providers Care Client Hr Manager Name Role Phone Mamadou Chang Primary Care Provider [phone] REASON FOR VISIT est care Encounters Encounter Location Date Provider Diagnosis [facility] [address] [place] [address] 09/06/2024 Mamadou Chang Plan Of Treatment No Information Progress Notes * GEETA VANCEDOB: [birth year] (54 yo F)Acc No.[id number]:09/06/2024 Progress Notes Patient: Kaylin FEITRICIAGEETA Provider: Kaylin Chang DO :1970 A ge:54 Y S ex:Female Date:09/06/2024 Address:[address] [facility] [place], [id number] Subjective: * Chief Complaints: * 1 . Est care. * Medical History: Objective: * Vitals: Assessment: Plan: * Treatment: * Images: * Electronic signature of Debo Chang DO, [id number] on 01/08/2025 at 08:51 AM EDT Sign off status: Pending * Provider: Kaylin Chang DO Date: 0 09/06/2024 Generated for Jacki gallo/Saloni/eTeastonsmitting on: 0 01/08/2025 08:51 AM EDT
--- OUTSIDE RECORDS SUMMARY | 2024-09-20 05:30 | XMS_ITS ---
Author Organization [facility] es Address [address] [place] [address] Care Team Providers Care Grain Broker Name Role Phone Mamadou Chang Primary Care Provider [phone] REASON FOR VISIT EST CARE-NEW TO YOU Encounters Encounter Location Date Provider Diagnosis [facility] [address] [place] [address] 09/20/2024 Mamadou Chang Plan Of Treatment No Information Progress Notes * GEETA VANCEDOB: [birth year] (54 yo F)Acc No.[id number]:09/20/2024 Progress Notes Patient: Kaylin PLASCENCIAGEETA Provider: Kaylin Chang DO :1970 A ge:54 Y S ex:Female Date:09/20/2024 [id number] Subjective: * Chief Complaints: * 1 . EST CARE-NEW TO YOU. * Medical History: Objective: * Vitals: Assessment: Plan: * Treatment: * Images: * Electronic signature of Debo Chang DO, [id number] on 01/08/2025 at 08:51 AM EDT Sign off status: Pending * Provider: Kaylin Chang DO Date: 0 09/20/2024 Generated for Jacki ng/Fakyra/eTransmitting on: 0 01/08/2025 08:51 AM EDT
--- OUTSIDE RECORDS SUMMARY | 2025-01-08 08:50 | XMS_ITS | Patient Health Record ---
Author Organization [facility] Address [address] [place] [address] Care Team Providers Care Asphalt Mixer Name Role Phone Mamadou Chang Primary Care Provider Maye Burger Unavailable Zuly Neville Unavailable [phone] Brody Garces Unavailable [phone] Allergies Allergen (clinical drug ingredient) Drug/Non Drug Allergy documented on EMR Reaction Allergy Type Onset Date Status penicillamine Penicillamine hives Drug Allergy Active Results Component Value Reference Range Notes Cologuard Reviewed date:01/23/2024 02:44:17 PM Interpretation:NEG Performing Lab: Notes/Report: NEG Impression NEG Hemoglobin A1c Reviewed date:11/15/2024 08:55:09 AM Interpretation:6.8% Performing Lab: Notes/Report: 6.8% Hemoglobin A1c 6.8% 5 - 7.9 % Hemoglobin A1c Reviewed date:01/30/2024 02:55:32 PM Interpretation:6.9 Performing Lab: Notes/Report: 6.9 Hemoglobin A1c 6.9 5 - 7.9 % Hemoglobin A1c Reviewed date:06/20/2024 11:11:42 AM Interpretation:7.1 Performing Lab: Notes/Report: 7.1 Hemoglobin A1c 7.1 5 - 7.9 % Reason For Referral Reason *FAXED 11/29 Due for pap with unexplained vaginal bleeding last year; requesting HRT for hot flashes Diagnosis 1 Hot flashes due to m enopause (N95.1) Referral Organization [facility] ices Referring Provider First Name Brody Referring Provider Last Name Dez Referring Provider Speciality Family Med ashley Referred Provider Clif Bazan Referred Provider Specialty OB - Gynecol ogy Referral Priority Routine Medications Medication SIG (Take, Route, Frequency, Duration) Notes Start Date End Date Status hydrOXYzine HCl 50 MG 1 tablet as needed Orally Twice per day; Duration: 90 days As needed Active Gabapentin 400 MG 1 capsule Orally three times per day; Duration: 30 days Active Dulera 200-5 MCG/ACT 2 puff as needed Inhalation Twice per day; Duration: 90 days 02/13/2025 Active Montelukast Sodium 10 MG TAKE 1 TABLET BY MOUTH EVERY DAY; Duration: 90 days Active Sertraline HCl 100 MG 1.5 Tabs Orally Once a day; Duration: 90 days Dose increase: New dose 150 MG. Active Albuterol Sulfate (2.5 MG/3ML) 0.083% as directed Inhalation as needed (prn) q 6-8 hrs (bronchospasm); Duration: 30 days PRN - requesting dispense 1 box Active Albuterol Sulfate HFA 108 (90 Base) MCG/ACT 1 puff as needed Inhalation every 4 hrs; Duration: 21 days PRN Active rOPINIRole HCl 2 MG TAKE 1 TABLET BY MOUTH TWICE A DAY; Duration: 90 days Active Celecoxib 200 MG TAKE 1 CAPSULE BY MOUTH EVERY DAY WITH FOOD; Duration: 90 days Active Immunizations Vaccine Route Administration Date [...] OLDER Unknown 03/05/2016 Administered was given at [facility] Social History Tobacco Use: Social History [...] 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 Stress is when someone feels tense, nervous, anxious, or cant sleep at night because their mind is troubled Somewhat In the past year have you sp ent more than 2 nights in a row in a group home, nursing home, mcfp center, or juvenile correctional facility? No Are [...] USE. neg etoh and tobacco. works at [employer]. neg etoh and tobacco. works at [employer]. neg etoh and tobacco. works at [employer]. 01-10-12: DENIES TOBACCO. DEN IES ETOH. DENIES [...] USE. neg etoh and tobacco. works at [employer]. neg etoh and tobacco. works at [employer]. Problems Problem Type SNOMED Code ICD Code Onset Dates Problem Status W/U Status Risk Notes Problem Type II diabetes mellitus without complication (158996570) Type 2 diabetes mellitus without complications (E11.9) Active confirmed Problem Morbid obesity (disorder) (875106786) Morbid (severe) obesity due to excess calories (E66.01) Active confirmed Problem Osteoarthritis of knee (918070881) Osteoarthritis of knee, unspecified (M17.9) Active confirmed Problem Postmenopausal bleeding (15314614) Postmenopausal bleeding (N95.0) Active confirmed Problem Essential hypertension (16413329) Essential hypertension (I10) Active confirmed Problem Mood swings (95443886) Mood swings (F39) Active confirmed Problem Mixed anxiety and depressive disorder (744299120) Depression with anxiety (F41.8) Active confirmed Problem Restless legs (33611882) Restless leg (G25.81) Active confirmed Problem Skin sensation disturbance (75395218) Arm paresthesia, left (R20.2) Active confirmed Problem Peripheral vascular disease (510870571) Peripheral vascular disease (I73.9) Active confirmed Problem Female urinary stress incontinence (62837974) Stress incontinence in female (N39.3) Active confirmed Problem Dysphagia (81870536) Dysphagia, unspecified type (R13.10) Active confirmed Problem Moderate persistent asthma (852428665) Moderate persistent asthma (J45.40) Active confirmed Problem Type II diabetes mellitus without complication (828718124) Type 2 diabetes mellitus without complication, without long-term current use of insulin (E11.9) Active confirmed Problem Menopausal symptom (32863997) Hot flashes due to menopause (N95.1) Active confirmed Problem Abnormal vaginal bleeding (256024131) Abnormal vaginal bleeding (N93.9) Active confirmed Vital Signs Heart Rate 83 /min 11/26/2024 Temperature 97.8 degrees Fahrenheit 11/15/2024 Respiratory Rate 20 /min 11/26/2024 Blood pressure diastolic 82 mm Hg 11/26/2024 Oximetry 95 % 11/26/2024 Height 65 in 11/26/2024 Blood pressure systolic 137 mm Hg 11/26/2024 Weight 256 lbs 11/26/2024 BMI 42.6 kg/m2 11/26/2024 Encounters Encounter Location Date Provider Diagnosis [facility][1] [address] [place] [address] 01/23/2024 Maye Burger [facility][1] [address] [address] 04/30/2024 Maye Burger [facility][1] [address] [place] [address] 05/14/2024 Maye Blissson Stress incontinence in female N39.3 [facility] [address] [place] [address] 06/08/2024 Maye Burger [facility] [address] [place] [address] 08/23/2024 Mamadou Chang [id number] [place] [address] 09/26/2024 Mamadou Chang [facility][1] [address] [place] [address] 11/12/2024 Mamadou Chang [facility] [address] [place] [address] 11/13/2024 [facility] [address] [place] [address] 11/26/2024 Mamadou Chang Acute folliculitis L73.9 and Cellulitis, unspecified L03.90 [id number] [place] [address] 11/15/2024 Brody Garces Mood swings F39 ; Type 2 diabetes mellitus without complications E11.9 ; Restless leg G25.81 ; Moderate persistent asthma J45.40 ; Hot flashes due to menopause N95.1 and Rash and nonspecific skin eruption R21 [facility] [address] [place] [address] 01/30/2024 Maye Blissson Type 2 diabetes mellitus without complication, without long-term current use of insulin E11.9 ; Restless leg G25.81 and Stress incontinence in female N39.3 [facility] [address] [place] [address] 06/20/2024 Maye Burger Restless leg G25.81 ; Type 2 diabetes mellitus without complication, without long-term current use of insulin E11.9 ; Moderate persistent asthma J45.40 ; Mood swings F39 ; Stress incontinence in female N39.3 ; Breast cancer screening by mammogram Z12.31 and Wound of foot S91.309A Assessments Encounter Date Diagnosis (ICD Code) Assessment Notes Treatment Notes Treatment Clinical Notes Section Notes 01/30/2024 Restless leg (ICD-10 - G25.81) Pt [...] develop any sores/concern RTO. F/U 3 months 11/15/2024 Mood swings (ICD-10 - F39) Pt with history of mood swings controlled on her current medication dose of Sertraline and hydroxyzine. Refills sent today and will followup in 3 months or sooner as needed. 11/15/2024 Type 2 diabetes mellitus without complications (ICD-10 - E11.9) A1c in office today at 6.8% down from 7.1% - she would like to continue diet and lifestyle modifications versus medication at this time; encouraged limiting carbohydrate intake and 30+ minutes of cardiovascular exercise at least 3x/week. Plan to followup A1c check in 3 months. 11/26/2024 Cellulitis, unspecified (ICD-10 - L03.90) 11/26/2024 Acute folliculitis (ICD-10 - L73.9) Acute onset of painful, warm, red skin area with surrounding redness and warmth. Localized infection with no systemic symptoms reported. Patient denied fever or other systemic symptoms. Condition is likely due to bacterial infection of the skin and subcutaneous tissue. - Prescribed antibiotic to treat cellulitis. - Advised patient to wrap the area for protection at work. - Instructed to monitor for worsening symptoms or lack of improvement and to follow up if needed. 11/15/2024 Restless leg (ICD-10 - G25.81) Pt states her symptoms are controlled on current medication regiment. Rx refill placed today and will plan to f/u in 3 months. 06/20/2024 Moderate persistent asthma (ICD-10 - J45.40) [...] med bc previous is not providing relief. 06/20/2024 Mood swings (ICD-10 - F39) Mood has room for improvement, will increase sertraline. Discussed risks and side effects of medication. Patient denies SI/HI today. Follow up if mood does not improve. Patient verbalized understanding. 11/15/2024 Moderate persistent asthma (ICD-10 - J45.40) Pt states her asthma symptoms are well controlled on current regiment and has not been needing to use her rescue inhaler except PRN 1-2x/week. Refills placed today and will f/up in 3 months. 11/15/2024 Hot flashes due to menopause (ICD-10 - N95.1) Pt reporting daily severe hot flashes for the past several months post-menopause and requests treatment options. She reports no contraindictations including history of breast or endometrial cancer, CAD, CVA, DVT, liver disease. She had a short period of vaginal spotting previously which self resolved and underwent a normal US transvaginal and US pelvic August 2023 without signs of abnormality. She is due for PAP and discussed today setting up an appointment to complete this. Discussed the risks/benefits of HRT including elevated risks of CAD, CVA, and breast ca. Will place referral to plating engineer today to schedule pap as well as further evaluation for history of vaginal bleeding as well as further evluation for initiating HRT. 06/20/2024 Stress incontinence in female (ICD-10 - N39.3) Denies concerns and med is helping with symptoms. 06/20/2024 Breast cancer screening by mammogram (ICD-10 - Z12.31) Due for mammogram ordered for pt. 11/15/2024 Rash and nonspecific skin eruption (ICD-10 - R21) Pt reports several weeks of pruirtic white scaly rash to bilateral extensor elbows with unknown cause and has not attempted treatments. Has appearance of mild plaque psoriasis and will start trial treatment of topical mid-potentcy steroid cream. Recommended followup if no improvement is seen in 2-4 weeks. Pt undertands and agrees with plan. 06/20/2024 Wound of foot (ICD-10 - S91.309A) Seeing podiatry for care of foot and has an appt on Tuesday. Declines INFORMATION SECURITY SPECIALIST to examine foot. Dressing dry and intact. Completing antibiotics. Education on good glycemic control to help with healing. Plan Of Treatment No Information Insurance Providers Payer Name Payer Address Payer Phone Subscriber Number Group Number Insured Name Patient Relationship to Insured Coverage Start Date Coverage End Date MEDICARE CGS 1 [place] [phone] [id number] [employer] Self - patient is the insured 4 [employer] [place] Medicaid [address] [place] [address] [id number] [employer] Self - patient is the insured 4 4 MEDICAID SEC TO [facility] [address] [place] [address] [id number] [employer] Self - patient is the insured 4 [employer] [facility] [address] [place] [address] [id number] [employer] Self - patient is the insured 4 4 [facility] [address] [place] [address] [id number] [employer] Self - patient is the insured 8 1 [employer] [address] [place] [address] [id number] [employer] Self - patient is the insured 1 1 [facility] [place] D[place] [address] [address] [place] [address] [id number] [employer] Self - patient is the [...] Total Knee Replacement Hospitalization History Reason Date(Month/Year) whole on bottom of foot, had a staff inf ection 08/2024 Cellulitis and Wound Plantar Foot 05/2024 Knee Arthroplasty 06/2016
--- OUTSIDE RECORDS SUMMARY | 2025-01-08 08:52 | XMS_ITS | Clinical Summary ---
Author Organization [facility] Address [address] [place] [address] Care Team Providers Care Tread Tuber Machine Operator Name Role Phone Unallocated, Noms Provider Primary [...] Vaccine (#1) 2024 03/16/2016, 2014 Insurance MEDICARE [facility] Care Teams Tread Tuber Machine Operator Relationship Specialty Start Date End Date Unallocated, Noms Provider, [address] [place], [place] [id number] PCP - General 10/14/22
--- OUTSIDE RECORDS SUMMARY | 2025-01-08 08:52 | XMS_ITS | Patient Health Record ---
Author Organization [facility] in [place] Address [address] [place] [address] Care Team Providers Care Surveillance Systems Analyst Name Role Phone Nahid HAMM, Mimi Primary Care Provider Unavailab Hilda Lucero Unavailable [phone] Juan Celvin Yonny Unavailable [phone] Allergies Allergen (clinical drug ingredient) Drug/Non Drug Allergy documented on EMR Reaction Allergy Type Onset Date Status Penicillin Unknown Drug Allergy Active Results Component Value Reference Range Notes Aerobic Culture (Not yet rev iewed by provider) Interpretation: Performing Lab: Notes/Report: [facility] , Aerobic Culture See Below For Report Organism: 2.2 Clindamycin O:STAAUR Oxacillin S F Rifampin Trimethoprim/Sulfameth oxazole S F Gentamicin S F Trimethoprim/Sulfameth oxazole Oxacillin Vancomycin Gentamicin Isolated Levofloxacin Penicillin Tetracycline S F Erythromycin S F Moxifloxacin S F Tetracycline Erythromycin O:BETAGC Moxifloxacin Linezolid S F Ciprofloxacin S F Levofloxacin S F Organism: Staphylococcus aureus : Antibiotic Interpretation MARIA ELENA Status Ciprofloxacin Linezolid Aerobic Culture Penicillin R F Clindamycin S F Isolated Vancomycin S F Rifampin S F Aerobic Culture *ABNORMAL* Organism: 2.2 Clindamycin O:STAAUR Oxacillin S F Rifampin Trimethoprim/Sulfameth oxazole S F Gentamicin S F Trimethoprim/Sulfameth oxazole Oxacillin Vancomycin Gentamicin Isolated Levofloxacin Penicillin Tetracycline S F Erythromycin S F Moxifloxacin S F Tetracycline Erythromycin O:BETAGC Moxifloxacin Linezolid S F Ciprofloxacin S F Levofloxacin S F Organism: Staphylococcus aureus : Antibiotic Interpretation MARI AELENA Status Ciprofloxacin Linezolid Aerobic Culture Penicillin R F Clindamycin S F Isolated Vancomycin S F Rifampin S F Aerobic Culture Heavy growth Organism: 2.2 Clindamycin O:STAAUR Oxacillin S F Rifampin Trimethoprim/Sulfameth oxazole S F Gentamicin S F Trimethoprim/Sulfameth oxazole Oxacillin Vancomycin Gentamicin Isolated Levofloxacin Penicillin Tetracycline S F Erythromycin S F Moxifloxacin S F Tetracycline Erythromycin O:BETAGC Moxifloxacin Linezolid S F Ciprofloxacin S F Levofloxacin S F Organism: Staphylococcus aureus : Antibiotic Interpretation MARIA ELENA Status Ciprofloxacin Linezolid Aerobic Culture Penicillin R F Clindamycin S F Isolated Vancomycin S F Rifampin S F Aerobic Culture Staphylococcus aureus Organism: 2.2 Clindamycin O:STAAUR Oxacillin S F Rifampin Trimethoprim/Sulfameth oxazole S F Gentamicin S F Trimethoprim/Sulfameth oxazole Oxacillin Vancomycin Gentamicin Isolated Levofloxacin Penicillin Tetracycline S F Erythromycin S F Moxifloxacin S F Tetracycline Erythromycin O:BETAGC Moxifloxacin Linezolid S F Ciprofloxacin S F Levofloxacin S F Organism: Staphylococcus aureus : Antibiotic Interpretation MARIA ELENA Status Ciprofloxacin Linezolid Aerobic Culture Penicillin R F Clindamycin S F Isolated Vancomycin S F Rifampin S F Aerobic Culture Organism: Staphylococcus aureus : Organism: 2.2 Clindamycin O:STAAUR Oxacillin S F Rifampin Trimethoprim/Sulfameth oxazole S F Gentamicin S F Trimethoprim/Sulfameth oxazole Oxacillin Vancomycin Gentamicin Isolated Levofloxacin Penicillin Tetracycline S F Erythromycin S F Moxifloxacin S F Tetracycline Erythromycin O:BETAGC Moxifloxacin Linezolid S F Ciprofloxacin S F Levofloxacin S F Organism: Staphylococcus aureus : Antibiotic Interpretation MARIA ELENA Status Ciprofloxacin Linezolid Aerobic Culture Penicillin R F Clindamycin S F Isolated Vancomycin S F Rifampin S F Aerobic Culture *ABNORMAL* Organism: 2.2 Clindamycin O:STAAUR Oxacillin S F Rifampin Trimethoprim/Sulfameth oxazole S F Gentamicin S F Trimethoprim/Sulfameth oxazole Oxacillin Vancomycin Gentamicin Isolated Levofloxacin Penicillin Tetracycline S F Erythromycin S F Moxifloxacin S F Tetracycline Erythromycin O:BETAGC Moxifloxacin Linezolid S F Ciprofloxacin S F Levofloxacin S F Organism: Staphylococcus aureus : Antibiotic Interpretation MARIA ELENA Status Ciprofloxacin Linezolid Aerobic Culture Penicillin R F Clindamycin S F Isolated Vancomycin S F Rifampin S F Aerobic Culture Based on susceptibil ity to oxacillin this isolate would be Organism: 2.2 Clindamycin O:STAAUR Oxacillin S F Rifampin Trimethoprim/Sulfameth oxazole S F Gentamicin S F Trimethoprim/Sulfameth oxazole Oxacillin Vancomycin Gentamicin Isolated Levofloxacin Penicillin Tetracycline S F Erythromycin S F Moxifloxacin S F Tetracycline Erythromycin O:BETAGC Moxifloxacin Linezolid S F Ciprofloxacin S F Levofloxacin S F Organism: Staphylococcus aureus : Antibiotic Interpretation MARIA ELENA Status Ciprofloxacin Linezolid Aerobic Culture Penicillin R F Clindamycin S F Isolated Vancomycin S F Rifampin S F Aerobic Culture susceptible to: Organism: 2.2 Clindamycin O:STAAUR Oxacillin S F Rifampin Trimethoprim/Sulfameth oxazole S F Gentamicin S F Trimethoprim/Sulfameth oxazole Oxacillin Vancomycin Gentamicin Isolated Levofloxacin Penicillin Tetracycline S F Erythromycin S F Moxifloxacin S F Tetracycline Erythromycin O:BETAGC Moxifloxacin Linezolid S F Ciprofloxacin S F Levofloxacin S F Organism: Staphylococcus aureus : Antibiotic Interpretation MARIA ELENA Status Ciprofloxacin Linezolid Aerobic Culture Penicillin R F Clindamycin S F Isolated Vancomycin S F Rifampin S F Aerobic Culture *Penicillinase-stabl e penicillins, such as: Organism: 2.2 Clindamycin O:STAAUR Oxacillin S F Rifampin Trimethoprim/Sulfameth oxazole S F Gentamicin S F Trimethoprim/Sulfameth oxazole Oxacillin Vancomycin Gentamicin Isolated Levofloxacin Penicillin Tetracycline S F Erythromycin S F Moxifloxacin S F Tetracycline Erythromycin O:BETAGC Moxifloxacin Linezolid S F Ciprofloxacin S F Levofloxacin S F Organism: Staphylococcus aureus : Antibiotic Interpretation MARIA ELENA Status Ciprofloxacin Linezolid Aerobic Culture Penicillin R F Clindamycin S F Isolated Vancomycin S F Rifampin S F Aerobic Culture Cloxacillin, Dicloxacillin, Nafcillin Organism: 2.2 Clindamycin O:STAAUR Oxacillin S F Rifampin Trimethoprim/Sulfameth oxazole S F Gentamicin S F Trimethoprim/Sulfameth oxazole Oxacillin Vancomycin Gentamicin Isolated Levofloxacin Penicillin Tetracycline S F Erythromycin S F Moxifloxacin S F Tetracycline Erythromycin O:BETAGC Moxifloxacin Linezolid S F Ciprofloxacin S F Levofloxacin S F Organism: Staphylococcus aureus : Antibiotic Interpretation MARIA ELENA Status Ciprofloxacin Linezolid Aerobic Culture Penicillin R F Clindamycin S F Isolated Vancomycin S F Rifampin S F Aerobic Culture *Beta-lactam combination agents, such as: Organism: 2.2 Clindamycin O:STAAUR Oxacillin S F Rifampin Trimethoprim/Sulfameth oxazole S F Gentamicin S F Trimethoprim/Sulfameth oxazole Oxacillin Vancomycin Gentamicin Isolated Levofloxacin Penicillin Tetracycline S F Erythromycin S F Moxifloxacin S F Tetracycline Erythromycin O:BETAGC Moxifloxacin Linezolid S F Ciprofloxacin S F Levofloxacin S F Organism: Staphylococcus aureus : Antibiotic Interpretation MARIA ELENA Status Ciprofloxacin Linezolid Aerobic Culture Penicillin R F Clindamycin S F Isolated Vancomycin S F Rifampin S F Aerobic Culture Amoxicillin-clavulan ic acid, Ampicillin-sulbactam, Organism: 2.2 Clindamycin O:STAAUR Oxacillin S F Rifampin Trimethoprim/Sulfameth oxazole S F Gentamicin S F Trimethoprim/Sulfameth oxazole Oxacillin Vancomycin Gentamicin Isolated Levofloxacin Penicillin Tetracycline S F Erythromycin S F Moxifloxacin S F Tetracycline Erythromycin O:BETAGC Moxifloxacin Linezolid S F Ciprofloxacin S F Levofloxacin S F Organism: Staphylococcus aureus : Antibiotic Interpretation MARIA ELENA Status Ciprofloxacin Linezolid Aerobic Culture Penicillin R F Clindamycin S F Isolated Vancomycin S F Rifampin S F Aerobic Culture Piperacillin-tazobactam Organism: 2.2 Clindamycin O:STAAUR Oxacillin S F Rifampin Trimethoprim/Sulfameth oxazole S F Gentamicin S F Trimethoprim/Sulfameth oxazole Oxacillin Vancomycin Gentamicin Isolated Levofloxacin Penicillin Tetracycline S F Erythromycin S F Moxifloxacin S F Tetracycline Erythromycin O:BETAGC Moxifloxacin Linezolid S F Ciprofloxacin S F Levofloxacin S F Organism: Staphylococcus aureus : Antibiotic Interpretation MARIA ELENA Status Ciprofloxacin Linezolid Aerobic Culture Penicillin R F Clindamycin S F Isolated Vancomycin S F Rifampin S F Aerobic Culture *Oral cephems, such as: Organism: 2.2 Clindamycin O:STAAUR Oxacillin S F Rifampin Trimethoprim/Sulfameth oxazole S F Gentamicin S F Trimethoprim/Sulfameth oxazole Oxacillin Vancomycin Gentamicin Isolated Levofloxacin Penicillin Tetracycline S F Erythromycin S F Moxifloxacin S F Tetracycline Erythromycin O:BETAGC Moxifloxacin Linezolid S F Ciprofloxacin S F Levofloxacin S F Organism: Staphylococcus aureus : Antibiotic Interpretation MARIA ELENA Status Ciprofloxacin Linezolid Aerobic Culture Penicillin R F Clindamycin S F Isolated Vancomycin S F Rifampin S F Aerobic Culture Cefaclor, Cefdinir, Cefpodoxime, Cefprozil, Cefuroxime, Organism: 2.2 Clindamycin O:STAAUR Oxacillin S F Rifampin Trimethoprim/Sulfameth oxazole S F Gentamicin S F Trimethoprim/Sulfameth oxazole Oxacillin Vancomycin Gentamicin Isolated Levofloxacin Penicillin Tetracycline S F Erythromycin S F Moxifloxacin S F Tetracycline Erythromycin O:BETAGC Moxifloxacin Linezolid S F Ciprofloxacin S F Levofloxacin S F Organism: Staphylococcus aureus : Antibiotic Interpretation MARIA ELENA Status Ciprofloxacin Linezolid Aerobic Culture Penicillin R F Clindamycin S F Isolated Vancomycin S F Rifampin S F Aerobic Culture Cephalexin, Loracarbef Organism: 2.2 Clindamycin O:STAAUR Oxacillin S F Rifampin Trimethoprim/Sulfameth oxazole S F Gentamicin S F Trimethoprim/Sulfameth oxazole Oxacillin Vancomycin Gentamicin Isolated Levofloxacin Penicillin Tetracycline S F Erythromycin S F Moxifloxacin S F Tetracycline Erythromycin O:BETAGC Moxifloxacin Linezolid S F Ciprofloxacin S F Levofloxacin S F Organism: Staphylococcus aureus : Antibiotic Interpretation MARIA ELENA Status Ciprofloxacin Linezolid Aerobic Culture Penicillin R F Clindamycin S F Isolated Vancomycin S F Rifampin S F Aerobic Culture *Parenteral cephems, such as: Organism: 2.2 Clindamycin O:STAAUR Oxacillin S F Rifampin Trimethoprim/Sulfameth oxazole S F Gentamicin S F Trimethoprim/Sulfameth oxazole Oxacillin Vancomycin Gentamicin Isolated Levofloxacin Penicillin Tetracycline S F Erythromycin S F Moxifloxacin S F Tetracycline Erythromycin O:BETAGC Moxifloxacin Linezolid S F Ciprofloxacin S F Levofloxacin S F Organism: Staphylococcus aureus : Antibiotic Interpretation MARIA ELENA Status Ciprofloxacin Linezolid Aerobic Culture Penicillin R F Clindamycin S F Isolated Vancomycin S F Rifampin S F Aerobic Culture Cefazolin, Cefepime, Cefotaxime, Cefotetan, Ceftaroline, Organism: 2.2 Clindamycin O:STAAUR Oxacillin S F Rifampin Trimethoprim/Sulfameth oxazole S F Gentamicin S F Trimethoprim/Sulfameth oxazole Oxacillin Vancomycin Gentamicin Isolated Levofloxacin Penicillin Tetracycline S F Erythromycin S F Moxifloxacin S F Tetracycline Erythromycin O:BETAGC Moxifloxacin Linezolid S F Ciprofloxacin S F Levofloxacin S F Organism: Staphylococcus aureus : Antibiotic Interpretation MARIA ELENA Status Ciprofloxacin Linezolid Aerobic Culture Penicillin R F Clindamycin S F Isolated Vancomycin S F Rifampin S F Aerobic Culture Ceftizoxime, Ceftriaxone, Cefuroxime Organism: 2.2 Clindamycin O:STAAUR Oxacillin S F Rifampin Trimethoprim/Sulfameth oxazole S F Gentamicin S F Trimethoprim/Sulfameth oxazole Oxacillin Vancomycin Gentamicin Isolated Levofloxacin Penicillin Tetracycline S F Erythromycin S F Moxifloxacin S F Tetracycline Erythromycin O:BETAGC Moxifloxacin Linezolid S F Ciprofloxacin S F Levofloxacin S F Organism: Staphylococcus aureus : Antibiotic Interpretation MARIA ELENA Status Ciprofloxacin Linezolid Aerobic Culture Penicillin R F Clindamycin S F Isolated Vancomycin S F Rifampin S F Aerobic Culture *Carbapenems, such as: Organism: 2.2 Clindamycin O:STAAUR Oxacillin S F Rifampin Trimethoprim/Sulfameth oxazole S F Gentamicin S F Trimethoprim/Sulfameth oxazole Oxacillin Vancomycin Gentamicin Isolated Levofloxacin Penicillin Tetracycline S F Erythromycin S F Moxifloxacin S F Tetracycline Erythromycin O:BETAGC Moxifloxacin Linezolid S F Ciprofloxacin S F Levofloxacin S F Organism: Staphylococcus aureus : Antibiotic Interpretation MARIA ELENA Status Ciprofloxacin Linezolid Aerobic Culture Penicillin R F Clindamycin S F Isolated Vancomycin S F Rifampin S F Aerobic Culture Doripenem, Ertapenem , Imipenem, Meropenem Organism: 2.2 Clindamycin O:STAAUR Oxacillin S F Rifampin Trimethoprim/Sulfameth oxazole S F Gentamicin S F Trimethoprim/Sulfameth oxazole Oxacillin Vancomycin Gentamicin Isolated Levofloxacin Penicillin Tetracycline S F Erythromycin S F Moxifloxacin S F Tetracycline Erythromycin O:BETAGC Moxifloxacin Linezolid S F Ciprofloxacin S F Levofloxacin S F Organism: Staphylococcus aureus : Antibiotic Interpretation MARIA ELENA Status Ciprofloxacin Linezolid Aerobic Culture Penicillin R F Clindamycin S F Isolated Vancomycin S F Rifampin S F Aerobic Culture Heavy growth Organism: 2.2 Clindamycin O:STAAUR Oxacillin S F Rifampin Trimethoprim/Sulfameth oxazole S F Gentamicin S F Trimethoprim/Sulfameth oxazole Oxacillin Vancomycin Gentamicin Isolated Levofloxacin Penicillin Tetracycline S F Erythromycin S F Moxifloxacin S F Tetracycline Erythromycin O:BETAGC Moxifloxacin Linezolid S F Ciprofloxacin S F Levofloxacin S F Organism: Staphylococcus aureus : Antibiotic Interpretation MARIA ELENA Status Ciprofloxacin Linezolid Aerobic Culture Penicillin R F Clindamycin S F Isolated Vancomycin S F Rifampin S F Aerobic Culture Organism: Beta hemolytic Strep group C : Organism: 2.2 Clindamycin O:STAAUR Oxacillin S F Rifampin Trimethoprim/Sulfameth oxazole S F Gentamicin S F Trimethoprim/Sulfameth oxazole Oxacillin Vancomycin Gentamicin Isolated Levofloxacin Penicillin Tetracycline S F Erythromycin S F Moxifloxacin S F Tetracycline Erythromycin O:BETAGC Moxifloxacin Linezolid S F Ciprofloxacin S F Levofloxacin S F Organism: Staphylococcus aureus : Antibiotic Interpretation MARIA ELENA Status Ciprofloxacin Linezolid Aerobic Culture Penicillin R F Clindamycin S F Isolated Vancomycin S F Rifampin S F Aerobic Culture *ABNORMAL* Organism: 2.2 Clindamycin O:STAAUR Oxacillin S F Rifampin Trimethoprim/Sulfameth oxazole S F Gentamicin S F Trimethoprim/Sulfameth oxazole Oxacillin Vancomycin Gentamicin Isolated Levofloxacin Penicillin Tetracycline S F Erythromycin S F Moxifloxacin S F Tetracycline Erythromycin O:BETAGC Moxifloxacin Linezolid S F Ciprofloxacin S F Levofloxacin S F Organism: Staphylococcus aureus : Antibiotic Interpretation MARIA ELENA Status Ciprofloxacin Linezolid Aerobic Culture Penicillin R F Clindamycin S F Isolated Vancomycin S F Rifampin S F Aerobic Culture Heavy growth Organism: 2.2 Clindamycin O:STAAUR Oxacillin S F Rifampin Trimethoprim/Sulfameth oxazole S F Gentamicin S F Trimethoprim/Sulfameth oxazole Oxacillin Vancomycin Gentamicin Isolated Levofloxacin Penicillin Tetracycline S F Erythromycin S F Moxifloxacin S F Tetracycline Erythromycin O:BETAGC Moxifloxacin Linezolid S F Ciprofloxacin S F Levofloxacin S F Organism: Staphylococcus aureus : Antibiotic Interpretation MARIA ELENA Status Ciprofloxacin Linezolid Aerobic Culture Penicillin R F Clindamycin S F Isolated Vancomycin S F Rifampin S F Aerobic Culture Penicillin and ampicillin are drugs of choice for Organism: 2.2 Clindamycin O:STAAUR Oxacillin S F Rifampin Trimethoprim/Sulfameth oxazole S F Gentamicin S F Trimethoprim/Sulfameth oxazole Oxacillin Vancomycin Gentamicin Isolated Levofloxacin Penicillin Tetracycline S F Erythromycin S F Moxifloxacin S F Tetracycline Erythromycin O:BETAGC Moxifloxacin Linezolid S F Ciprofloxacin S F Levofloxacin S F Organism: Staphylococcus aureus : Antibiotic Interpretation MARIA ELENA Status Ciprofloxacin Linezolid Aerobic Culture Penicillin R F Clindamycin S F Isolated Vancomycin S F Rifampin S F Aerobic Culture treatment of beta-hemolytic streptococcal infections. Organism: 2.2 Clindamycin O:STAAUR Oxacillin S F Rifampin Trimethoprim/Sulfameth oxazole S F Gentamicin S F Trimethoprim/Sulfameth oxazole Oxacillin Vancomycin Gentamicin Isolated Levofloxacin Penicillin Tetracycline S F Erythromycin S F Moxifloxacin S F Tetracycline Erythromycin O:BETAGC Moxifloxacin Linezolid S F Ciprofloxacin S F Levofloxacin S F Organism: Staphylococcus aureus : Antibiotic Interpretation MARIA ELENA Status Ciprofloxacin Linezolid Aerobic Culture Penicillin R F Clindamycin S F Isolated Vancomycin S F Rifampin S F Aerobic Culture Susceptibility testi ng of penicillins and other beta- Organism: 2.2 Clindamycin O:STAAUR Oxacillin S F Rifampin Trimethoprim/Sulfameth oxazole S F Gentamicin S F Trimethoprim/Sulfameth oxazole Oxacillin Vancomycin Gentamicin Isolated Levofloxacin Penicillin Tetracycline S F Erythromycin S F Moxifloxacin S F Tetracycline Erythromycin O:BETAGC Moxifloxacin Linezolid S F Ciprofloxacin S F Levofloxacin S F Organism: Staphylococcus aureus : Antibiotic Interpretation MARIA ELENA Status Ciprofloxacin Linezolid Aerobic Culture Penicillin R F Clindamycin S F Isolated Vancomycin S F Rifampin S F Aerobic Culture lactam agents approv ed by the FDA for treatment of Organism: 2.2 Clindamycin O:STAAUR Oxacillin S F Rifampin Trimethoprim/Sulfameth oxazole S F Gentamicin S F Trimethoprim/Sulfameth oxazole Oxacillin Vancomycin Gentamicin Isolated Levofloxacin Penicillin Tetracycline S F Erythromycin S F Moxifloxacin S F Tetracycline Erythromycin O:BETAGC Moxifloxacin Linezolid S F Ciprofloxacin S F Levofloxacin S F Organism: Staphylococcus aureus : Antibiotic Interpretation MARIA ELENA Status Ciprofloxacin Linezolid Aerobic Culture Penicillin R F Clindamycin S F Isolated Vancomycin S F Rifampin S F Aerobic Culture beta-hemolytic streptococcal infections need not be Organism: 2.2 Clindamycin O:STAAUR Oxacillin S F Rifampin Trimethoprim/Sulfameth oxazole S F Gentamicin S F Trimethoprim/Sulfameth oxazole Oxacillin Vancomycin Gentamicin Isolated Levofloxacin Penicillin Tetracycline S F Erythromycin S F Moxifloxacin S F Tetracycline Erythromycin O:BETAGC Moxifloxacin Linezolid S F Ciprofloxacin S F Levofloxacin S F Organism: Staphylococcus aureus : Antibiotic Interpretation MARIA ELENA Status Ciprofloxacin Linezolid Aerobic Culture Penicillin R F Clindamycin S F Isolated Vancomycin S F Rifampin S F Aerobic Culture performed routinely because nonsusceptible isolates Organism: 2.2 Clindamycin O:STAAUR Oxacillin S F Rifampin Trimethoprim/Sulfameth oxazole S F Gentamicin S F Trimethoprim/Sulfameth oxazole Oxacillin Vancomycin Gentamicin Isolated Levofloxacin Penicillin Tetracycline S F Erythromycin S F Moxifloxacin S F Tetracycline Erythromycin O:BETAGC Moxifloxacin Linezolid S F Ciprofloxacin S F Levofloxacin S F Organism: Staphylococcus aureus : Antibiotic Interpretation MARIA ELENA Status Ciprofloxacin Linezolid Aerobic Culture Penicillin R F Clindamycin S F Isolated Vancomycin S F Rifampin S F Aerobic Culture are extremely rare i n any beta-hemolytic streptococcus Organism: 2.2 Clindamycin O:STAAUR Oxacillin S F Rifampin Trimethoprim/Sulfameth oxazole S F Gentamicin S F Trimethoprim/Sulfameth oxazole Oxacillin Vancomycin Gentamicin Isolated Levofloxacin Penicillin Tetracycline S F Erythromycin S F Moxifloxacin S F Tetracycline Erythromycin O:BETAGC Moxifloxacin Linezolid S F Ciprofloxacin S F Levofloxacin S F Organism: Staphylococcus aureus : Antibiotic Interpretation MARIA ELENA Status Ciprofloxacin Linezolid Aerobic Culture Penicillin R F Clindamycin S F Isolated Vancomycin S F Rifampin S F Aerobic Culture and have not been reported for Streptococcus pyogenes Organism: 2.2 Clindamycin O:STAAUR Oxacillin S F Rifampin Trimethoprim/Sulfameth oxazole S F Gentamicin S F Trimethoprim/Sulfameth oxazole Oxacillin Vancomycin Gentamicin Isolated Levofloxacin Penicillin Tetracycline S F Erythromycin S F Moxifloxacin S F Tetracycline Erythromycin O:BETAGC Moxifloxacin Linezolid S F Ciprofloxacin S F Levofloxacin S F Organism: Staphylococcus aureus : Antibiotic Interpretation MARIA ELENA Status Ciprofloxacin Linezolid Aerobic Culture Penicillin R F Clindamycin S F Isolated Vancomycin S F Rifampin S F Aerobic Culture (group A). (CLSI) Organism: 2.2 Clindamycin O:STAAUR Oxacillin S F Rifampin Trimethoprim/Sulfameth oxazole S F Gentamicin S F Trimethoprim/Sulfameth oxazole Oxacillin Vancomycin Gentamicin Isolated Levofloxacin Penicillin Tetracycline S F Erythromycin S F Moxifloxacin S F Tetracycline Erythromycin O:BETAGC Moxifloxacin Linezolid S F Ciprofloxacin S F Levofloxacin S F Organism: Staphylococcus aureus : Antibiotic Interpretation MARIA ELENA Status Ciprofloxacin Linezolid Aerobic Culture Penicillin R F Clindamycin S F Isolated Vancomycin S F Rifampin S F Aerobic Culture Beta hemolytic Strep group C Organism: 2.2 Clindamycin O:STAAUR Oxacillin S F Rifampin Trimethoprim/Sulfameth oxazole S F Gentamicin S F Trimethoprim/Sulfameth oxazole Oxacillin Vancomycin Gentamicin Isolated Levofloxacin Penicillin Tetracycline S F Erythromycin S F Moxifloxacin S F Tetracycline Erythromycin O:BETAGC Moxifloxacin Linezolid S F Ciprofloxacin S F Levofloxacin S F Organism: Staphylococcus aureus : Antibiotic Interpretation MARIA ELENA Status Ciprofloxacin Linezolid Aerobic Culture Penicillin R F Clindamycin S F Isolated Vancomycin S F Rifampin S F Aerobic Culture See Below For Report Organism: 2.2 Clindamycin O:STAAUR Oxacillin S F Rifampin Trimethoprim/Sulfameth oxazole S F Gentamicin S F Trimethoprim/Sulfameth oxazole Oxacillin Vancomycin Gentamicin Isolated Levofloxacin Penicillin Tetracycline S F Erythromycin S F Moxifloxacin S F Tetracycline Erythromycin O:BETAGC Moxifloxacin Linezolid S F Ciprofloxacin S F Levofloxacin S F Organism: Staphylococcus aureus : Antibiotic Interpretation MARIA ELENA Status Ciprofloxacin Linezolid Aerobic Culture Penicillin R F Clindamycin S F Isolated Vancomycin S F Rifampin S F Aerobic Culture See Below For Report Organism: 2.2 Clindamycin O:STAAUR Oxacillin S F Rifampin Trimethoprim/Sulfameth oxazole S F Gentamicin S F Trimethoprim/Sulfameth oxazole Oxacillin Vancomycin Gentamicin Isolated Levofloxacin Penicillin Tetracycline S F Erythromycin S F Moxifloxacin S F Tetracycline Erythromycin O:BETAGC Moxifloxacin Linezolid S F Ciprofloxacin S F Levofloxacin S F Organism: Staphylococcus aureus : Antibiotic Interpretation MARIA ELENA Status Ciprofloxacin Linezolid Aerobic Culture Penicillin R F Clindamycin S F Isolated Vancomycin S F Rifampin S F Aerobic Culture Performed at: [facility] Organism: 2.2 Clindamycin O:STAAUR Oxacillin S F Rifampin Trimethoprim/Sulfameth oxazole S F Gentamicin S F Trimethoprim/Sulfameth oxazole Oxacillin Vancomycin Gentamicin Isolated Levofloxacin Penicillin Tetracycline S F Erythromycin S F Moxifloxacin S F Tetracycline Erythromycin O:BETAGC Moxifloxacin Linezolid S F Ciprofloxacin S F Levofloxacin S F Organism: Staphylococcus aureus : Antibiotic Interpretation MARIA ELENA Status Ciprofloxacin Linezolid Aerobic Culture Penicillin R F Clindamycin S F Isolated Vancomycin S F Rifampin S F Aerobic Culture [address] [place], [place] [id number] Organism: 2.2 Clindamycin O:STAAUR Oxacillin S F Rifampin Trimethoprim/Sulfameth oxazole S F Gentamicin S F Trimethoprim/Sulfameth oxazole Oxacillin Vancomycin Gentamicin Isolated Levofloxacin Penicillin Tetracycline S F Erythromycin S F Moxifloxacin S F Tetracycline Erythromycin O:BETAGC Moxifloxacin Linezolid S F Ciprofloxacin S F Levofloxacin S F Organism: Staphylococcus aureus : Antibiotic Interpretation MARIA ELENA Status Ciprofloxacin Linezolid Aerobic Culture Penicillin R F Clindamycin S F Isolated Vancomycin S F Rifampin S F Aerobic Culture Silverware Buffer: Torey Duncan PhD, Phone: [phone] Organism: 2.2 Clindamycin O:STAAUR Oxacillin S F Rifampin Trimethoprim/Sulfameth oxazole S F Gentamicin S F Trimethoprim/Sulfameth oxazole Oxacillin Vancomycin Gentamicin Isolated Levofloxacin Penicillin Tetracycline S F Erythromycin S F Moxifloxacin S F Tetracycline Erythromycin O:BETAGC Moxifloxacin Linezolid S F Ciprofloxacin S F Levofloxacin S F Organism: Staphylococcus aureus : Antibiotic Interpretation MARIA ELENA Status Ciprofloxacin Linezolid Aerobic Culture Penicillin R F Clindamycin S F Isolated Vancomycin S F Rifampin S F Aerobic Culture See Below For Report Organism: 2.2 Clindamycin O:STAAUR Oxacillin S F Rifampin Trimethoprim/Sulfameth oxazole S F Gentamicin S F Trimethoprim/Sulfameth oxazole Oxacillin Vancomycin Gentamicin Isolated Levofloxacin Penicillin Tetracycline S F Erythromycin S F Moxifloxacin S F Tetracycline Erythromycin O:BETAGC Moxifloxacin Linezolid S F Ciprofloxacin S F Levofloxacin S F Organism: Staphylococcus aureus : Antibiotic Interpretation MARIA ELENA Status Ciprofloxacin Linezolid Aerobic Culture Penicillin R F Clindamycin S F Isolated Vancomycin S F Rifampin S F Aerobic Culture See Below For Report Organism: 2.2 Clindamycin O:STAAUR Oxacillin S F Rifampin Trimethoprim/Sulfameth oxazole S F Gentamicin S F Trimethoprim/Sulfameth oxazole Oxacillin Vancomycin Gentamicin Isolated Levofloxacin Penicillin Tetracycline S F Erythromycin S F Moxifloxacin S F Tetracycline Erythromycin O:BETAGC Moxifloxacin Linezolid S F Ciprofloxacin S F Levofloxacin S F Organism: Staphylococcus aureus : Antibiotic Interpretation MARIA ELENA Status Ciprofloxacin Linezolid Aerobic Culture Penicillin R F Clindamycin S F Isolated Vancomycin S F Rifampin S F Aerobic Culture See Below For Report Organism: 2.2 Clindamycin O:STAAUR Oxacillin S F Rifampin Trimethoprim/Sulfameth oxazole S F Gentamicin S F Trimethoprim/Sulfameth oxazole Oxacillin Vancomycin Gentamicin Isolated Levofloxacin Penicillin Tetracycline S F Erythromycin S F Moxifloxacin S F Tetracycline Erythromycin O:BETAGC Moxifloxacin Linezolid S F Ciprofloxacin S F Levofloxacin S F Organism: Staphylococcus aureus : Antibiotic Interpretation MARIA ELENA Status Ciprofloxacin Linezolid Aerobic Culture Penicillin R F Clindamycin S F Isolated Vancomycin S F Rifampin S F Aerobic Culture See Below For Report Organism: 2.2 Clindamycin O:STAAUR Oxacillin S F Rifampin Trimethoprim/Sulfameth oxazole S F Gentamicin S F Trimethoprim/Sulfameth oxazole Oxacillin Vancomycin Gentamicin Isolated Levofloxacin Penicillin Tetracycline S F Erythromycin S F Moxifloxacin S F Tetracycline Erythromycin O:BETAGC Moxifloxacin Linezolid S F Ciprofloxacin S F Levofloxacin S F Organism: Staphylococcus aureus : Antibiotic Interpretation MARIA ELENA Status Ciprofloxacin Linezolid Aerobic Culture Penicillin R F Clindamycin S F Isolated Vancomycin S F Rifampin S F Aerobic Culture See Below For Report Organism: 2.2 Clindamycin O:STAAUR Oxacillin S F Rifampin Trimethoprim/Sulfameth oxazole S F Gentamicin S F Trimethoprim/Sulfameth oxazole Oxacillin Vancomycin Gentamicin Isolated Levofloxacin Penicillin Tetracycline S F Erythromycin S F Moxifloxacin S F Tetracycline Erythromycin O:BETAGC Moxifloxacin Linezolid S F Ciprofloxacin S F Levofloxacin S F Organism: Staphylococcus aureus : Antibiotic Interpretation MARIA ELENA Status Ciprofloxacin Linezolid Aerobic Culture Penicillin R F Clindamycin S F Isolated Vancomycin S F Rifampin S F Aerobic Culture See Below For Report Organism: 2.2 Clindamycin O:STAAUR Oxacillin S F Rifampin Trimethoprim/Sulfameth oxazole S F Gentamicin S F Trimethoprim/Sulfameth oxazole Oxacillin Vancomycin Gentamicin Isolated Levofloxacin Penicillin Tetracycline S F Erythromycin S F Moxifloxacin S F Tetracycline Erythromycin O:BETAGC Moxifloxacin Linezolid S F Ciprofloxacin S F Levofloxacin S F Organism: Staphylococcus aureus : Antibiotic Interpretation MARIA ELENA Status Ciprofloxacin Linezolid Aerobic Culture Penicillin R F Clindamycin S F Isolated Vancomycin S F Rifampin S F Aerobic Culture See Below For Report Organism: 2.2 Clindamycin O:STAAUR Oxacillin S F Rifampin Trimethoprim/Sulfameth oxazole S F Gentamicin S F Trimethoprim/Sulfameth oxazole Oxacillin Vancomycin Gentamicin Isolated Levofloxacin Penicillin Tetracycline S F Erythromycin S F Moxifloxacin S F Tetracycline Erythromycin O:BETAGC Moxifloxacin Linezolid S F Ciprofloxacin S F Levofloxacin S F Organism: Staphylococcus aureus : Antibiotic Interpretation MARIA ELENA Status Ciprofloxacin Linezolid Aerobic Culture Penicillin R F Clindamycin S F Isolated Vancomycin S F Rifampin S F Aerobic Culture See Below For Report Organism: 2.2 Clindamycin O:STAAUR Oxacillin S F Rifampin Trimethoprim/Sulfameth oxazole S F Gentamicin S F Trimethoprim/Sulfameth oxazole Oxacillin Vancomycin Gentamicin Isolated Levofloxacin Penicillin Tetracycline S F Erythromycin S F Moxifloxacin S F Tetracycline Erythromycin O:BETAGC Moxifloxacin Linezolid S F Ciprofloxacin S F Levofloxacin S F Organism: Staphylococcus aureus : Antibiotic Interpretation MARIA ELENA Status Ciprofloxacin Linezolid Aerobic Culture Penicillin R F Clindamycin S F Isolated Vancomycin S F Rifampin S F Aerobic Culture See Below For Report Organism: 2.2 Clindamycin O:STAAUR Oxacillin S F Rifampin Trimethoprim/Sulfameth oxazole S F Gentamicin S F Trimethoprim/Sulfameth oxazole Oxacillin Vancomycin Gentamicin Isolated Levofloxacin Penicillin Tetracycline S F Erythromycin S F Moxifloxacin S F Tetracycline Erythromycin O:BETAGC Moxifloxacin Linezolid S F Ciprofloxacin S F Levofloxacin S F Organism: Staphylococcus aureus : Antibiotic Interpretation MARIA ELENA Status Ciprofloxacin Linezolid Aerobic Culture Penicillin R F Clindamycin S F Isolated Vancomycin S F Rifampin S F Aerobic Culture See Below For Report Organism: 2.2 Clindamycin O:STAAUR Oxacillin S F Rifampin Trimethoprim/Sulfameth oxazole S F Gentamicin S F Trimethoprim/Sulfameth oxazole Oxacillin Vancomycin Gentamicin Isolated Levofloxacin Penicillin Tetracycline S F Erythromycin S F Moxifloxacin S F Tetracycline Erythromycin O:BETAGC Moxifloxacin Linezolid S F Ciprofloxacin S F Levofloxacin S F Organism: Staphylococcus aureus : Antibiotic Interpretation MARIA ELENA Status Ciprofloxacin Linezolid Aerobic Culture Penicillin R F Clindamycin S F Isolated Vancomycin S F Rifampin S F Aerobic Culture See Below For Report Organism: 2.2 Clindamycin O:STAAUR Oxacillin S F Rifampin Trimethoprim/Sulfameth oxazole S F Gentamicin S F Trimethoprim/Sulfameth oxazole Oxacillin Vancomycin Gentamicin Isolated Levofloxacin Penicillin Tetracycline S F Erythromycin S F Moxifloxacin S F Tetracycline Erythromycin O:BETAGC Moxifloxacin Linezolid S F Ciprofloxacin S F Levofloxacin S F Organism: Staphylococcus aureus : Antibiotic Interpretation MARIA ELENA Status Ciprofloxacin Linezolid Aerobic Culture Penicillin R F Clindamycin S F Isolated Vancomycin S F Rifampin S F Aerobic Culture See Below For Report Organism: 2.2 Clindamycin O:STAAUR Oxacillin S F Rifampin Trimethoprim/Sulfameth oxazole S F Gentamicin S F Trimethoprim/Sulfameth oxazole Oxacillin Vancomycin Gentamicin Isolated Levofloxacin Penicillin Tetracycline S F Erythromycin S F Moxifloxacin S F Tetracycline Erythromycin O:BETAGC Moxifloxacin Linezolid S F Ciprofloxacin S F Levofloxacin S F Organism: Staphylococcus aureus : Antibiotic Interpretation MARIA ELENA Status Ciprofloxacin Linezolid Aerobic Culture Penicillin R F Clindamycin S F Isolated Vancomycin S F Rifampin S F Aerobic Culture See Below For Report Organism: 2.2 Clindamycin O:STAAUR Oxacillin S F Rifampin Trimethoprim/Sulfameth oxazole S F Gentamicin S F Trimethoprim/Sulfameth oxazole Oxacillin Vancomycin Gentamicin Isolated Levofloxacin Penicillin Tetracycline S F Erythromycin S F Moxifloxacin S F Tetracycline Erythromycin O:BETAGC Moxifloxacin Linezolid S F Ciprofloxacin S F Levofloxacin S F Organism: Staphylococcus aureus : Antibiotic Interpretation MARIA ELENA Status Ciprofloxacin Linezolid Aerobic Culture Penicillin R F Clindamycin S F Isolated Vancomycin S F Rifampin S F Aerobic Culture See Below For Report Organism: 2.2 Clindamycin O:STAAUR Oxacillin S F Rifampin Trimethoprim/Sulfameth oxazole S F Gentamicin S F Trimethoprim/Sulfameth oxazole Oxacillin Vancomycin Gentamicin Isolated Levofloxacin Penicillin Tetracycline S F Erythromycin S F Moxifloxacin S F Tetracycline Erythromycin O:BETAGC Moxifloxacin Linezolid S F Ciprofloxacin S F Levofloxacin S F Organism: Staphylococcus aureus : Antibiotic Interpretation MARIA ELENA Status Ciprofloxacin Linezolid Aerobic Culture Penicillin R F Clindamycin S F Isolated Vancomycin S F Rifampin S F Performing Lab: see note LC - [facility] LB SEE REPORT - Paint Formulator Id information not found for OBX-specific caving guide legend Anaerobic Culture (Not yet r eviewed by provider) Interpretation: Performing Lab: Notes/Report: [facility] , Anaerobic Culture See Below For Report Isolated O:PREVSP Anaerobic Culture Anaerobic Culture Specimen has been received and testing has been initiated. Isolated O:PREVSP Anaerobic Culture Anaerobic Culture Organism: Prevotella species : Isolated O:PREVSP Anaerobic Culture Anaerobic Culture *ABNORMAL* Isolated O:PREVSP Anaerobic Culture [facility]erobic Culture [facility] have confirmed the Isolated O:PREVSP Anaerobic Culture Anaerobic Culture observations of othe rs who have demonstrated that Isolated O:PREVSP Anaerobic Culture Anaerobic Culture Prevotella, Porphyromonas and Bacteroides species Isolated O:PREVSP Anaerobic Culture Anaerobic Culture other than Bacteroid es fragilis group are routinely Isolated O:PREVSP Anaerobic Culture Anaerobic Culture susceptible to Cefoxitin, Chloramphenicol, and Isolated O:PREVSP Anaerobic Culture Anaerobic Culture Metronidazole and ar e usually resistant to Penicillin. Isolated O:PREVSP Anaerobic Culture Anaerobic Culture Heavy growth Isolated O:PREVSP Anaerobic Culture Anaerobic Culture Prevotella species Isolated O:PREVSP Anaerobic Culture Anaerobic Culture See Below For Report Isolated O:PREVSP Anaerobic Culture Performing Lab: see note LC - [facility] LB Aerobic Culture (Not yet rev iewed by provider) Interpretation: Performing Lab: Notes/Report: [facility] , Aerobic Culture See Below For Report Organism: Staphylococcus aureus : Antibiotic Interpretation MARIA ELENA Status O:BETAGC Aerobic Culture Isolated Isolated O:STAAUR Organism: 1.2 Aerobic Culture *ABNORMAL* Organism: Staphylococcus aureus : Antibiotic Interpretation MARIA ELENA Status O:BETAGC Aerobic Culture Isolated Isolated O:STAAUR Organism: 1.2 Aerobic Culture Heavy growth Organism: Staphylococcus aureus : Antibiotic Interpretation MARIA ELENA Status O:BETAGC Aerobic Culture Isolated Isolated O:STAAUR Organism: 1.2 Aerobic Culture Staphylococcus aureus Organism: Staphylococcus aureus : Antibiotic Interpretation MARIA ELENA Status O:BETAGC Aerobic Culture Isolated Isolated O:STAAUR Organism: 1.2 Aerobic Culture Organism: Staphylococcus aureus : Organism: Staphylococcus aureus : Antibiotic Interpretation MARIA ELENA Status O:BETAGC Aerobic Culture Isolated Isolated O:STAAUR Organism: 1.2 Aerobic Culture *ABNORMAL* Organism: Staphylococcus aureus : Antibiotic Interpretation MARIA ELENA Status O:BETAGC Aerobic Culture Isolated Isolated O:STAAUR Organism: 1.2 Aerobic Culture Based on susceptibil ity to oxacillin this isolate would be Organism: Staphylococcus aureus : Antibiotic Interpretation MARIA ELENA Status O:BETAGC Aerobic Culture Isolated Isolated O:STAAUR Organism: 1.2 Aerobic Culture susceptible to: Organism: Staphylococcus aureus : Antibiotic Interpretation MARIA ELENA Status O:BETAGC Aerobic Culture Isolated Isolated O:STAAUR Organism: 1.2 Aerobic Culture *Penicillinase-stabl e penicillins, such as: Organism: Staphylococcus aureus : Antibiotic Interpretation MARIA ELENA Status O:BETAGC Aerobic Culture Isolated Isolated O:STAAUR Organism: 1.2 Aerobic Culture Cloxacillin, Dicloxacillin, Nafcillin Organism: Staphylococcus aureus : Antibiotic Interpretation MARIA ELENA Status O:BETAGC Aerobic Culture Isolated Isolated O:STAAUR Organism: 1.2 Aerobic Culture *Beta-lactam combination agents, such as: Organism: Staphylococcus aureus : Antibiotic Interpretation MARIA ELENA Status O:BETAGC Aerobic Culture Isolated Isolated O:STAAUR Organism: 1.2 Aerobic Culture Amoxicillin-clavulan ic acid, Ampicillin-sulbactam, Organism: Staphylococcus aureus : Antibiotic Interpretation MARIA ELENA Status O:BETAGC Aerobic Culture Isolated Isolated O:STAAUR Organism: 1.2 Aerobic Culture Piperacillin-tazobactam Organism: Staphylococcus aureus : Antibiotic Interpretation MARIA ELENA Status O:BETAGC Aerobic Culture Isolated Isolated O:STAAUR Organism: 1.2 Aerobic Culture *Oral cephems, such as: Organism: Staphylococcus aureus : Antibiotic Interpretation MARIA ELENA Status O:BETAGC Aerobic Culture Isolated Isolated O:STAAUR Organism: 1.2 Aerobic Culture Cefaclor, Cefdinir, Cefpodoxime, Cefprozil, Cefuroxime, Organism: Staphylococcus aureus : Antibiotic Interpretation MARIA ELENA Status O:BETAGC Aerobic Culture Isolated Isolated O:STAAUR Organism: 1.2 Aerobic Culture Cephalexin, Loracarbef Organism: Staphylococcus aureus : Antibiotic Interpretation MARIA ELENA Status O:BETAGC Aerobic Culture Isolated Isolated O:STAAUR Organism: 1.2 Aerobic Culture *Parenteral cephems, such as: Organism: Staphylococcus aureus : Antibiotic Interpretation MARIA ELENA Status O:BETAGC Aerobic Culture Isolated Isolated O:STAAUR Organism: 1.2 Aerobic Culture Cefazolin, Cefepime, Cefotaxime, Cefotetan, Ceftaroline, Organism: Staphylococcus aureus : Antibiotic Interpretation MARIA ELENA Status O:BETAGC Aerobic Culture Isolated Isolated O:STAAUR Organism: 1.2 Aerobic Culture Ceftizoxime, Ceftriaxone, Cefuroxime Organism: Staphylococcus aureus : Antibiotic Interpretation MARIA ELENA Status O:BETAGC Aerobic Culture Isolated Isolated O:STAAUR Organism: 1.2 Aerobic Culture *Carbapenems, such as: Organism: Staphylococcus aureus : Antibiotic Interpretation MARIA ELENA Status O:BETAGC Aerobic Culture Isolated Isolated O:STAAUR Organism: 1.2 Aerobic Culture Doripenem, Ertapenem , Imipenem, Meropenem Organism: Staphylococcus aureus : Antibiotic Interpretation MARIA ELENA Status O:BETAGC Aerobic Culture Isolated Isolated O:STAAUR Organism: 1.2 Aerobic Culture Heavy growth Organism: Staphylococcus aureus : Antibiotic Interpretation MARIA ELENA Status O:BETAGC Aerobic Culture Isolated Isolated O:STAAUR Organism: 1.2 Aerobic Culture Organism: Beta hemolytic Strep group C : Organism: Staphylococcus aureus : Antibiotic Interpretation MARIA ELENA Status O:BETAGC Aerobic Culture Isolated Isolated O:STAAUR Organism: 1.2 Aerobic Culture *ABNORMAL* Organism: Staphylococcus aureus : Antibiotic Interpretation MARIA ELENA Status O:BETAGC Aerobic Culture Isolated Isolated O:STAAUR Organism: 1.2 Aerobic Culture Heavy growth Organism: Staphylococcus aureus : Antibiotic Interpretation MARIA ELENA Status O:BETAGC Aerobic Culture Isolated Isolated O:STAAUR Organism: 1.2 Aerobic Culture Penicillin and ampicillin are drugs of choice for Organism: Staphylococcus aureus : Antibiotic Interpretation MARIA ELENA Status O:BETAGC Aerobic Culture Isolated Isolated O:STAAUR Organism: 1.2 Aerobic Culture treatment of beta-hemolytic streptococcal infections. Organism: Staphylococcus aureus : Antibiotic Interpretation MARIA ELENA Status O:BETAGC Aerobic Culture Isolated Isolated O:STAAUR Organism: 1.2 Aerobic Culture Susceptibility testi ng of penicillins and other beta- Organism: Staphylococcus aureus : Antibiotic Interpretation MARIA ELENA Status O:BETAGC Aerobic Culture Isolated Isolated O:STAAUR Organism: 1.2 Aerobic Culture lactam agents approv ed by the FDA for treatment of Organism: Staphylococcus aureus : Antibiotic Interpretation MARIA ELENA Status O:BETAGC Aerobic Culture Isolated Isolated O:STAAUR Organism: 1.2 Aerobic Culture beta-hemolytic streptococcal infections need not be Organism: Staphylococcus aureus : Antibiotic Interpretation MARIA ELENA Status O:BETAGC Aerobic Culture Isolated Isolated O:STAAUR Organism: 1.2 Aerobic Culture performed routinely because nonsusceptible isolates Organism: Staphylococcus aureus : Antibiotic Interpretation MARIA ELENA Status O:BETAGC Aerobic Culture Isolated Isolated O:STAAUR Organism: 1.2 Aerobic Culture are extremely rare i n any beta-hemolytic streptococcus Organism: Staphylococcus aureus : Antibiotic Interpretation MARIA ELENA Status O:BETAGC Aerobic Culture Isolated Isolated O:STAAUR Organism: 1.2 Aerobic Culture and have not been reported for Streptococcus pyogenes Organism: Staphylococcus aureus : Antibiotic Interpretation MARIA ELENA Status O:BETAGC Aerobic Culture Isolated Isolated O:STAAUR Organism: 1.2 Aerobic Culture (group A). (CLSI) Organism: Staphylococcus aureus : Antibiotic Interpretation MARIA ELENA Status O:BETAGC Aerobic Culture Isolated Isolated O:STAAUR Organism: 1.2 Aerobic Culture Beta hemolytic Strep group C Organism: Staphylococcus aureus : Antibiotic Interpretation MARIA ELENA Status O:BETAGC Aerobic Culture Isolated Isolated O:STAAUR Organism: 1.2 Aerobic Culture See Below For Report Organism: Staphylococcus aureus : Antibiotic Interpretation MARIA ELENA Status O:BETAGC Aerobic Culture Isolated Isolated O:STAAUR Organism: 1.2 Aerobic Culture See Below For Report Organism: Staphylococcus aureus : Antibiotic Interpretation MARIA ELENA Status O:BETAGC Aerobic Culture Isolated Isolated O:STAAUR Organism: 1.2 Aerobic Culture Performed at: [facility] Organism: Staphylococcus aureus : Antibiotic Interpretation MARIA ELENA Status O:BETAGC Aerobic Culture Isolated Isolated O:STAAUR Organism: 1.2 Aerobic Culture [address] [place], [place] [id number] Organism: Staphylococcus aureus : Antibiotic Interpretation MARIA ELENA Status O:BETAGC Aerobic Culture Isolated Isolated O:STAAUR Organism: 1.2 Aerobic Culture Silverware Buffer: Torey Duncan PhD, Phone: [phone] Organism: Staphylococcus aureus : Antibiotic Interpretation MARIA ELENA Status O:BETAGC Aerobic Culture Isolated Isolated O:STAAUR Organism: 1.2 Aerobic Culture See Below For Report Organism: Staphylococcus aureus : Antibiotic Interpretation MARIA ELENA Status O:BETAGC Aerobic Culture Isolated Isolated O:STAAUR Organism: 1.2 Aerobic Culture Ciprofloxacin S F Organism: Staphylococcus aureus : Antibiotic Interpretation MARIA ELENA Status O:BETAGC Aerobic Culture Isolated Isolated O:STAAUR Organism: 1.2 Aerobic Culture Erythromycin S F Organism: Staphylococcus aureus : Antibiotic Interpretation MARIA ELENA Status O:BETAGC Aerobic Culture Isolated Isolated O:STAAUR Organism: 1.2 Aerobic Culture Gentamicin S F Organism: Staphylococcus aureus : Antibiotic Interpretation MARIA ELENA Status O:BETAGC Aerobic Culture Isolated Isolated O:STAAUR Organism: 1.2 Aerobic Culture Levofloxacin S F Organism: Staphylococcus aureus : Antibiotic Interpretation MARIA ELENA Status O:BETAGC Aerobic Culture Isolated Isolated O:STAAUR Organism: 1.2 Aerobic Culture Linezolid S F Organism: Staphylococcus aureus : Antibiotic Interpretation MARIA ELENA Status O:BETAGC Aerobic Culture Isolated Isolated O:STAAUR Organism: 1.2 Aerobic Culture Moxifloxacin S F Organism: Staphylococcus aureus : Antibiotic Interpretation MARIA ELENA Status O:BETAGC Aerobic Culture Isolated Isolated O:STAAUR Organism: 1.2 Aerobic Culture Oxacillin S F Organism: Staphylococcus aureus : Antibiotic Interpretation MARIA ELENA Status O:BETAGC Aerobic Culture Isolated Isolated O:STAAUR Organism: 1.2 Aerobic Culture Penicillin R F Organism: Staphylococcus aureus : Antibiotic Interpretation MARIA ELENA Status O:BETAGC Aerobic Culture Isolated Isolated O:STAAUR Organism: 1.2 Aerobic Culture Rifampin S F Organism: Staphylococcus aureus : Antibiotic Interpretation MARIA ELENA Status O:BETAGC Aerobic Culture Isolated Isolated O:STAAUR Organism: 1.2 Aerobic Culture Tetracycline S F Organism: Staphylococcus aureus : Antibiotic Interpretation MARIA ELENA Status O:BETAGC Aerobic Culture Isolated Isolated O:STAAUR Organism: 1.2 Aerobic Culture Trimethoprim/Sulfame tho xazole S F Organism: Staphylococcus aureus : Antibiotic Interpretation MARIA ELENA Status O:BETAGC Aerobic Culture Isolated Isolated O:STAAUR Organism: 1.2 Aerobic Culture Vancomycin S F Organism: Staphylococcus aureus : Antibiotic Interpretation MARIA ELENA Status O:BETAGC Aerobic Culture Isolated Isolated O:STAAUR Organism: 1.2 Aerobic Culture Clindamycin S F Organism: Staphylococcus aureus : Antibiotic Interpretation MARIA ELENA Status O:BETAGC Aerobic Culture Isolated Isolated O:STAAUR Organism: 1.2 Performing Lab: see note LC - [facility] LB SEE REPORT - Paint Formulator Id information not found for OBX-specific caving guide legend CT foot RT w con Reviewed date:06/03/2024 11:04:29 AM Interpretation: Performing Lab: Notes/Report: Source Facility: [place] [address] CT Scan Report Signed Patient: GEETA VANCE MR#: [id number] : 1970 Acct:[id number] Age/Sex: 54 / F ADM Date: 06/02/24 Loc: ICU 276-[address]: Tasha Quinn M.D. Ordering Physician: Tasha Quinn M.D. Date of Service: 06/02/24 Procedure(s): CT foot RT w con Accession Number(s): [id number] cc: [facility] [place] [address] Patient Name: GEETA VANCE MRN: [id number] date: 1970 Sex: F Assigned Patient Location: ICU Current Patient Location: ICU Accession/Order Number: [id number] Exam Date: 06/02/2024 16:38 Report Date: 06/02/2024 [...] evidence of osteomyelitis. No fractures. There is [id number] degenerative ankle mortise narrowing and osteoarthritis. Subtalar [...] D.O. Signed By: 06/02/241948 DD/ 45 TD/TT: Community Affairs Manager: VC SEGMENTAL PRESSURES Reviewed date:06/04/2024 01:00:24 PM Interpretation: Performing Lab: Notes/Report: Source Facility: [place] [address] [place] [address] Vein Report Signed Patient: GEETA VANCE MR#: [id number] : 1970 Acct:[id number] Age/Sex: 54 / F ADM Date: 03/20/24 Loc: VC Attending Dr: Hilda Gentile D.P.M. Ordering Physician: Hilda Gentile D.P.M. Date of Service: 03/20/24 Procedure(s): VC SEGMENTAL PRESSURES Accession Number(s): [id number] cc: Hilda Gentile D.P.M.; Physician,Non-Staff [employer] [address] [place] [address] Patient Name: GEETA VANCE MRN: [id number] date: 1970 Sex: F Assigned Patient Location: Current Patient Location: Accession/Order Number: [id number] Exam Date: 03/20/2024 14:44 Report Date: 03/26/2024 07:54 At the request of: HILDA GENTILE Procedure: VC SEGMENTAL PRESSURES EXAM: VC SEGMENTAL PRESSURES HISTORY: R09.89 COMPARISON: None. FINDINGS: Segmental pressures presented as follows (right, left) in mmHg. Brachial: 154, 164 Lower thigh: 219, 214 Calf: 178, 204 DPA: 105, 79 CEPHALOMETRIC ANALYST: 158, 118 1st Toe: 211, 200 PEG: [...] Dictated By: Paul Cagle M.D. Signed By: 03/26/24 0756 DD/ TD/TT: Community Affairs Manager: XR ankle LT min 3V Reviewed date:06/04/2024 01:00:24 PM Interpretation: Performing Lab: Notes/Report: Source Facility: [place] [address] [place] [address] XRay Report Signed Patient: GEETA VANCE MR#: [id number] : 1970 Acct:[id number] Age/Sex: 53 / F ADM Date: 01/25/24 Loc: EC Attending Dr: Hilda Gentile D.P.M. Ordering Physician: Hilda Gentile D.P.M. Date of Service: 01/25/24 Procedure(s): XR ankle LT min 3V Accession Number(s): [id number] cc: Hilda Gentile D.P.M.; Physician,Non-Staff [employer] [place] [address] Patient Name: GEETA VANCE MRN: [id number] date: 1970 Sex: F Assigned Patient Location: Current Patient Location: Accession/Order Number: [id number] Exam Date: 01/25/2024 09:34 Report Date: 01/26/2024 09:38 At the request of: IHLDA GENTILE Procedure: XR ankle LT min 3V [...] Dictated By: Paul Cagle M.D. Signed By: 01/26/2441 DD/ TD/TT: Community Affairs Manager: PROF LAURENCE Guzman ([facility]) Reviewed date:06/06/2024 09:18:06 PM Interpretation: Performing Lab: Notes/Report: [facility] , Sodium 135 136-145 mmol/L Potassium [...] mg/dL Performing Lab: see note ML - [facility] LB CRP Reviewed date:06/06/2024 09:18:06 PM Interpretation: Performing Lab: Notes/Report: [facility] , C Reactive Protein 9.36 <=0.50 mg/dL Performing Lab: see note ML - [facility] [facility] CBC AUTO DIFF Reviewed date:06/06/2024 09:18:06 PM Interpretation: Performing Lab: Notes/Report: [facility] , White Blood Count 9.3 4.0-11.0 [...] 3/uL Performing Lab: see note ML - [facility] PROF CHEM 8 (YUE ARIAS) Reviewed date:06/05/2024 12:41:43 PM Interpretation: Performing Lab: Notes/Report: [facility] , Sodium 135 136-145 mmol/L Potassium [...] mg/dL Performing Lab: see note ML - [facility] CRP Reviewed date:06/05/2024 12:41:43 PM Interpretation: Performing Lab: Notes/Report: [facility] , C Reactive Protein 12.54 <=0.50 mg/dL Performing Lab: see note - [facility] CBC AUTO DIFF Reviewed date:06/05/2024 12:41:43 PM Interpretation: Performing Lab: Notes/Report: [facility] , White Blood Count 9.1 4.0-11.0 [...] Performing Lab: see note ML - [facility] PROF CHEM 8 (BAS METB) Reviewed date:06/04/2024 01:00:24 PM Interpretation: Performing Lab: Notes/Report: [facility] , Sodium 137 136-145 mmol/L Potassium [...] Performing Lab: see note ML - [facility] LB CRP Reviewed date:06/04/2024 01:00:24 PM Interpretation: Performing Lab: Notes/Report: [facility] , C Reactive Protein 18.96 <=0.50 mg/dL Performing Lab: see note ML - [facility] LB CBC AUTO DIFF Reviewed date:06/04/2024 01:00:24 PM Interpretation: Performing Lab: Notes/Report: [facility] , White Blood Count 11.4 4.0-11.0 [...] 10 3/uL Performing Lab: see note - [facility] PROF CHEM 8 (BAS METB) Reviewed date:06/03/2024 11:04:29 AM Interpretation: Performing Lab: Notes/Report: [facility] , Sodium 135 136-145 mmol/L Potassium [...] Performing Lab: see note ML - [facility] LB CRP Reviewed date:06/03/2024 11:04:29 AM Interpretation: Performing Lab: Notes/Report: [facility] , C Reactive Protein 28.73 <=0.50 mg/dL Performing Lab: see note ML - [facility] CBC AUTO DIFF Reviewed date:06/03/2024 11:04:29 AM Interpretation: Performing Lab: Notes/Report: [facility] , White Blood Count 13.1 4.0-11.0 [...] Performing Lab: see note ML - [facility] LB Reason For Referral Reason evaluation and treat ment -- see attached order Diagnosis 1 Displaced avulsion f racture of tuberosity of left calcaneus, initial encounter for closed fracture (S92.032A) Referral Organization [facility] ([facility]) Referring Provider First Name Hilda Referring Provider Last Name Seferino Referring Provider Speciality Podiatry Referred Provider [facility], Physical Therap y Referred Provider Specialty Physical Med icine and Rehabilitation General Notes Jacob Bolaños 05/2023 03:03:07 PM >PT is not in network with patient's secondary insurance. Called patient to let her know, left message. Referral Priority Routine Reason PEG/PVR Diagnosis 1 Charcot's joint, lef t ankle and foot (M14.672) Referral Organization [facility] ([facility]) Referring Provider First Name Hilda Referring Provider Last Name Seferino Referring Provider Speciality Podiatry Referred Provider Specialty Vascular and Interventional Radiology Referral Priority Routine Medications Medication SIG (Take, Route, Fr equency, Duration) Notes Start Date End Date Status Gabapentin 300 MG 1 capsule Orally thr ee times a day; Duration: 30 days 03/28/2024 Active Ammonium Lactate 12 % 1 APPLICATION EXTE RNALLY TWICE A DAY 30 DAYS; Duration: 30 Acti ve Gabapentin 100 MG 1 capsule Orally Once a day Active Social History Tobacco Use: Social History Observation Description Date Details (start date - stop date) Never Smoker NA - NA Tobacco Control (Standard) Question Answer Notes Tobacco use: Nonsmoker Problems Problem Type SNOMED Code ICD Code Onset Dates Problem Status W/U Status Risk Notes Problem Peripheral vascular disease (745635866) Peripheral vascular disease, unspecified (I73.9) Active confirmed Problem Polyneuropathy due to type 2 diabetes mellitus (349854756) Type 2 diabetes mellitus with diabetic polyneuropathy (E11.42) Active confirmed Problem Foot ulcer due to type 2 diabetes mellitus (4930786476733) Type 2 diabetes mellitus with foot ulcer (E11.621) Active confirmed Problem Pressure ulcer o f other site, stage 1 (L89.891) Active confirmed Problem Chronic ulcer of foot (779252014) 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) Active confirmed Problem Arthropathy associated with a neurological disorder (73560724) Charcot's joint, left ankle and foot (M14.672) Active confirmed Problem Arthralgia of the ankle and/or foot (209917358) Pain in right ankle and joints of right foot (M25.571) Active confirmed Problem Arthralgia of the ankle and/or foot (050075711) Pain in left ankle and joints of left foot (M25.572) Active confirmed Problem Closed fracture of calcaneus (87803627) Displaced avulsion fracture of tuberosity of left calcaneus, initial encounter for closed fracture (S92.032A) Active confirmed Problem Essential hypertension (92300249) Benign essential HTN (I10) Active confirmed Problem Neuropathy (135464607) Neuropathy (G62.9) Active confirmed Problem Leukocytosis (789402347) Leukocytosis (D72.829) Active confirmed Problem Sepsis (52332286) Sepsis (A41.9) Active confirm ed Problem Culture positive for methicillin resistant Staphylococcus aureus (814560201) MRSA (methicillin resistant staph aureus) culture positive (Z22.322) Active confirmed Problem Non-pressure chronic ulcer of right heel and midfoot with muscle involvement without evidence of necrosis (L97.415) Active confirmed Problem Chronic ulcer of right heel with fat layer exposed (L97.412) Active confirmed Problem Chronic ulcer of right foot (disorder) (7893884210072000 0) Chronic ulcer of right foot with fat layer exposed (L97.512) Active confirmed Vital Signs Heart Rate 74 /min 03/28/2024 Temperature 97.1 degrees Fahrenheit 03/28/2024 Respiratory Rate 18 /min 01/25/2024 Oximetry 96 % 03/28/2024 Height 65 in 06/11/2024 Weight 260 lbs 03/13/2024 BMI 43.26 kg/m2 03/13/2024 Encounters Encounter Location Date Provider Diagnosis [facility] ([place], [place]) [address] [place] [address] 06/11/2024 Yonny Quinn Sepsis A41.9 and MRS A (methicillin resistant staph aureus) culture positive Z22.322 [facility] ([facility]) [address] [place] [address] [place] [address] 01/25/2024 Hilda Korichi Pain in left ankle and joints of left foot M25.572 ; Displaced avulsion fracture of tuberosity of left calcaneus, initial encounter for closed fracture S92.032A and Charcot's joint, left ankle and foot M14.672 [facility] ([facility]) [address] [place] [address] [place] [address] 02/15/2024 Hilda Seferino Displaced avulsion fracture of tuberosity of left calcaneus, initial encounter for closed fracture S92.032A [facility] ([facility]) [address] [place] [address] [place] [address] 03/13/2024 Hilda Gentile Charcot's joint, lef t ankle and foot M14.672 ; Peripheral vascular disease, unspecified I73.9 and Type 2 diabetes mellitus with diabetic polyneuropathy E11.42 [facility] ([facility]) [address] [place] [address] [place] [address] 03/28/2024 Hilda Gentile Charcot's joint, lef t ankle and foot M14.672 ; Displaced avulsion fracture of tuberosity of left calcaneus, initial encounter for closed fracture S92.032A ; Type 2 diabetes mellitus with diabetic polyneuropathy E11.42 and Peripheral vascular disease, unspecified I73.9 [facility] ([facility]) [address] [place] [address] [place] [address] 01/30/2024 Hilda Korichi Assessments Encounter Date Diagnosis (ICD Code) Assessment Notes Treatment Notes Treatment Clinical Notes Section Notes 01/25/2024 Pain in left ankle and joints [...] weeks no new x-rays are needed 03/13/2024 Peripheral vascular disease, unspecified (ICD-10 - I73.9) 03/13/2024 Charcot's joint, left ankle and foot [...] will follow-up after her ABIs are completed 03/28/2024 Charcot's joint, left ankle and foot [...] left ankle and foot (ICD-10 - M14.672) 03/28/2024 Peripheral vascular disease, unspecified (ICD-10 - I73.9) Plan Of Treatment Pending Test Test Name [...] Insured Coverage Start Date Coverage End Date [facility] DUAL PRIMARY MEDICARE [address] [address] [place] [address] [id number] OHDSGeeta Colon Self - patient is the insured 5 [employer] [place] [employer] [address] [place] [address] [id number] Geeta Vance Self - patient is the insured 4 [place]ID [place] 2ND INS [address] [facility] [address] [place], [place] [id number] Ness Vanceara Self - patient is the insured Medical (General) History Medical History History ICD Code diabetes neuropathy asthma high blood pressure Surgical History Surgery Date(Month/Year) Right knee replacement Left knee replacement
--- OUTSIDE RECORDS SUMMARY | 2025-01-08 08:54 | XMS_ITS | CCD ---
Author Organization [facility] Care Team Providers Care Maintenance Foreman Name Role Phone RHEA Alvarado Attending Provider [employer] [facility], Services Primary Care Provider RHEA Alvarado Primary [...] Attending Provider DO Lorrie Baig Attending Provider [phone] RHEA Alvarado Primary Care Provide r Acosta Schafer Attending Provider RHEA Ramirez Attending Provider DO Lorrie Baig Referring Provider [phone] [place], Dr. Acosta Tyson Attending Un available Pending, [...] Provider Primary Care Unavailable [place], Dr. Acosta Tsyon Attending Un available RHEA Alvarado Primary Care Provide r RHEA Alvarado Attending Provider Sindy Davila Unavailable MARII Davila Attending Provider Tyler Jean Unavailable RHEA Alvarado Primary Care Provide r MARII Davila Attending Provider RHEA Alvarado Attending Provider RHEA Alvarado Attending Provider NO FAMILY, PHYSICIAN Primary Care Provider Unava ilable RHEA Alvarado Primary Care Provide r DO Lorrie Baig Referring Provider [phone] DO Krzysztof Salazar II Attending Provider [phone] Elizabeth Alvarado Primary Care Unavailab Lorrie Villaolbos Referring Unavailable Krzysztof Salazar II Attending Unavaila ble Krzysztof Salazar II Admitting Unavaila ble Allergies Allergy Classification Reported Allergen(s) Allergy Type Date of Onset Reaction(s) Facility NSAIDs (1 source) Ibuprofen Drug Allergy 4 Unknown Reaction [facility] Penicillins (antibiotic) (2 sources) Penicillin Drug Allergy 4 hives [facility] (20 sources) Penicillins; Translations: [Penicillins] Allergy to substance 8 Anaphylaxis [facility] (6 sources) Ibuprofen; Translations: [ibuprofen] Drug Allergy 3 Unknown Reaction [facility] (3 sources) Penicillin V Drug Allergy 3 hives [facility] (1 source) Penicillin Drug Allergy 4 [facility] Repository Medications Current Medications Medication Drug Class(es) Dates Sig (Normalized) Sig (Original) acetaminophen 325 mg oral tablet (2 sources) Start: 07-01-2022 acetaminophen (TYLENOL) tablet 650 mg Start: 07-01-2022 End: 07-01-2022 acetaminophen (TYLENOL) tabl et 1,000 mg [id number] 200 actuat albuterol 0.09 mg/actuat metered dose [...] Active docusate sodium 50 mg / sennosides, assisted 8.6 mg oral tablet (2 sources) Start: [...] disintegrating tablet 4 mg polyethylene glycol 3350 62547 mg powder for oral solution (1 source) [...] Start: 12-03-2021 take 1 capsule by mo [facility] once daily venlafaxine (EFFEXOR XR) 75 MG [...] Inhalation, 2 TIMES DAILY, First dose on [facility] 07/01/22 at 2000, Until Discontinued Substituted [...] Range Facility Outside Recordson 06-11-2024 Outside Records [id number]#[id number] Rad - Other Radiology Report on 06-11-2024 Rad - Other Radiology Report [id number]#[id number] Rad - Other Radiology Report [id number]#1.00[facility] Alanine aminotransferase [En zymatic activity/volume] in Serum or PlasmaOrdered By: Krzysztof Salazar on 09-20-2023 ALT [Catalytic activity/Vol] 33 U/L 7-52 [facility] Albumin [Mass/volume] in Ser um or PlasmaOrdered By: Krzysztof Salazar on 09-20-2023 Albumin [Mass/Vol] 3.8 g/dL 2.9-4.[address] [facility] Albumin [Mass/volume] in Ser um or Plasma by Bromocresol green (BCG) dye binding methoOrdered By: Krzysztof Salazar on 09-20-2023 Albumin BCG dye [Mass/Vol] 4.2 g/dL 3.5-5.7 [facility] Alkaline phosphatase [Enzyma tic activity/volume] in Serum or PlasmaOrdered By: Krzysztof Salazar on 09-20-2023 ALP [Catalytic activity/Vol] 79 U/L 34-104 [facility] Aspartate aminotransferase [ Enzymatic activity/volume] in Serum or PlasmaOrdered By: Krzysztof Salazar on 09-20-2023 AST [Catalytic activity/Vol] 30 U/L 13-39 [facility] Basophils Auto (Bld) [#/Vol] Ordered By: Krzysztof Salazar on 09-20-2023 Basophils (Bld) [#/Vol] 0.0 10*3/uL 0.0-0.2 [facility] Basophils/100 WBC Auto (Bld) Ordered By: Krzysztof Salazar on 09-20-2023 Basophils/100 WBC (Bld) 0.5 % . F [facility] Bilirubin.total [Mass/volume ] in Serum or PlasmaOrdered By: Krzysztof Salazar on 09-20-2023 Bilirubin [Mass/Vol] 0.6 mg/dL 0.3-1.0 [facility] Calcium [Mass/volume] in Ser um or PlasmaOrdered By: Krzysztof Salaazr on 09-20-2023 Calcium [Mass/Vol] 9.7 mg/dL 8.6-10.[address] [facility] Carbon dioxide, total [Moles /volume] in Serum or PlasmaOrdered By: Krzysztof Salazar on 09-20-2023 CO2 [Moles/Vol] 32.4 mmol/L 21.0-31.0 [facility] Chloride [Moles/volume] in S hugo or PlasmaOrdered By: Krzysztof Salazar on 09-20-2023 Chloride [Moles/Vol] 97 mmol/L 98-107 [facility] Creatinine [Mass/volume] in Serum or PlasmaOrdered By: Krzysztof Salazar on 09-20-2023 Creatinine [Mass/Vol] 0.60 mg/dL 0.60-1.20 [facility] Eosinophils Auto (Bld) [#/Vo l]Ordered By: Krzysztof Salazar on 09-20-2023 Eosinophils (Bld) [#/Vol] 0.2 10*3/uL 0.0-0.45 [facility] Eosinophils/100 WBC Auto (Bl d)Ordered By: Krzysztof Salazar on 09-20-2023 Eosinophils/100 WBC (Bld) 2.6 % . [facility] Erythrocyte distribution wid th Auto (RBC) [Ratio]Ordered By: Krzysztof Salazar on 09-20-2023 Erythrocyte distribution width (RBC) [Ratio] 16.7 % 11.9-15.3 [facility] Ferritin [Mass/volume] in Se rum or PlasmaOrdered By: Krzysztof Salazar on 09-20-2023 Ferritin [Mass/Vol] 92.7 ng/mL 11.0-306.8 [facility] Globulin Calc (S) [Mass/Vol] Ordered By: Krzysztof Salazar on 09-20-2023 Globulin (S) [Mass/Vol] 3.5 g/dL F [facility] Glucose [Mass/volume] in Ser um or PlasmaOrdered By: Krzysztof Salazar on 09-20-2023 Glucose [Mass/Vol] 123 mg/dL 70-[address] [facility] Comment on above: ADA recommended refe rence rangeRandom Glucose Reference Range is dependent on time and content of last meal. Glucose of more than 200 mg/dL in a nonstressed, ambulatory subject supports the diagnosis of Diabetes Mellitus. Hematocrit Auto (Bld) [Volum e fraction]Ordered By: Krzysztof Salazar on 09-20-2023 Hematocrit (Bld) [Volume fraction] 38.3 % 34.0-46.4 [facility] Hemoglobin [Mass/volume] in BloodOrdered By: Krzysztof Salazar on 09-20-2023 Hemoglobin (Bld) [Mass/Vol] 12.5 g/dL 11.8-15.4 [facility] IgA [Mass/volume] in Serum o r PlasmaOrdered By: Krzysztof Salazar on 09-20-2023 IgA [Mass/Vol] 409 mg/dL 87-352 [facility] IgG [Mass/volume] in Serum o r PlasmaOrdered By: Krzysztof Salazar on 09-20-2023 IgG [Mass/Vol] 1704 mg/dL 586-1602 [facility] IgM [Mass/volume] in Serum o r PlasmaOrdered By: Krzysztof Salazar on 09-20-2023 IgM [Mass/Vol] 122 mg/dL 26-217 [facility] Comment on above: Performed at: [address] [id number] Director: Jeyson Duncan PhD, Phone: [phone] Immunoglobulin light chains. kappa.free [Mass/volume] in SerumOrdered By: Krzysztof Salazar on 09-20-2023 Immunoglobulin light chains.kappa.free (S) [Mass/Vol] 30.9 mg/L 3.3-19.4 [facility] Immunoglobulin light chains. kappa.free/Immunoglobulin light chains.lambda.free [MassOrdered By: Krzysztof Salazar on 09-20-2023 Immunoglobulin light chains.kappa.free/Immuno globulin light chains.lambda.free (S) [Mass ratio] 1.17 0.26-1.65 [facility] Comment on above: Performed at: [address] [id number] Director: Jeyson Duncan PhD, Phone: [phone] Immunoglobulin light chains. lambda.free [Mass/volume] in Serum or PlasmaOrdered By: Krzysztof Salazar on 09-20-2023 Immunoglobulin light chains.lambda.free [Mass/Vol] 26.4 mg/L 5.7-26.3 [facility] Iron [Mass/volume] in Serum or PlasmaOrdered By: Krzysztof Salazar on 09-20-2023 Iron [Mass/Vol] 74 ug/dL 50-212 [facility] Iron binding capacity [Mass/ volume] in Serum or PlasmaOrdered By: Krzysztof Salazar on 09-20-2023 Iron binding capacity [Mass/Vol] 344 ug/dL 255-450 [facility] Iron saturation [Mass Fracti on] in Serum or PlasmaOrdered By: Krzysztof Salazar on 09-20-2023 Iron saturation [Mass fraction] 21.5 % 20-50 [facility] Leukocytes [#/volume] correc silverio for nucleated erythrocytes in Blood by Automated counOrdered By: Krzysztof Salazar on 09-20-2023 WBC corrected for nucl RBC Auto (Bld) [#/Vol] 8.5 10*3/uL 3.8-11.6 [facility] Lymphocytes Auto (Bld) [#/Vo l]Ordered By: Krzysztof Salazar on 09-20-2023 Lymphocytes (Bld) [#/Vol] 2.1 10*3/uL 1.00-4.8 [facility] Lymphocytes/100 WBC Auto (Bl d)Ordered By: Krzysztof Salazar on 09-20-2023 Lymphocytes/100 WBC (Bld) 24.7 % . [facility] MCH Auto (RBC) [Entitic mass ]Ordered By: Krzysztof Salazar on 09-20-2023 MCH (RBC) [Entitic mass] 25.8 pg 24.7-34.3 [facility] MCHC Auto (RBC) [Mass/Vol]Or dered By: Krzysztof Salazar on 09-20-2023 MCHC (RBC) [Mass/Vol] 32.7 g/dL 32.0-35.0 [facility] MCV Auto (RBC) [Entitic vol] Ordered By: Krzysztof Salazar on 09-20-2023 MCV (RBC) [Entitic vol] 78.7 fL 80-100 F [facility] Monocytes Auto (Bld) [#/Vol] Ordered By: Krzysztof Salazar on 09-20-2023 Monocytes (Bld) [#/Vol] 0.7 10*3/uL 0.0-0.8 [facility] Monocytes/100 WBC Auto (Bld) Ordered By: Krzysztof Salazar on 09-20-2023 Monocytes/100 WBC (Bld) 7.9 % . F [facility] Neutrophils Auto (Bld) [#/Vo l]Ordered By: Krzysztof Salazar on 09-20-2023 Neutrophils (Bld) [#/Vol] 5.5 10*3/uL 1.8-7.7 [facility] Neutrophils/100 WBC Auto (Bl d)Ordered By: Krzysztof Salazar on 09-20-2023 Neutrophils/100 WBC (Bld) 64.3 % . [facility] No Panel InformationOrdered By: Krzysztof Salazar on 09-20-2023 Estimated GFR (CKD-EPI) > 60.0 mL/Min [facility] Creatinine Clearance (Chem 143.32 [facility] Protein Electrophoresis M-Antwan Not observed g/dL Not Observed [facility] Protein Electrophoresis Note See comment . [facility] Comment on above: Protein electrophore sis scan will follow via computer,mail, or experimental outboard motors mechanic delivery. Serum Immunofixation See comment . [facility] Comment on above: No monoclonality det ected. Nucleated erythrocytes [Pres ence] in Blood by Automated countOrdered By: Krzysztof Salazar on 09-20-2023 Nucleated RBC Auto Ql (Bld) 0.1 /100{WBC} 0-0.5 [facility] Platelet mean volume Auto (B ld) [Entitic vol]Ordered By: Krzysztof Salazar on 09-20-2023 Platelet mean volume (Bld) [Entitic vol] 8.8 fL 6.3-10.7 [facility] Platelets Auto (Bld) [#/Vol] Ordered By: Krzysztof Salazar on 09-20-2023 Platelets (Bld) [#/Vol] 271 10*3/uL 150-450 [facility] Potassium [Moles/volume] in Serum or PlasmaOrdered By: Krzysztof Salazar on 09-20-2023 Potassium [Moles/Vol] 4.4 mmol/L 3.5-5.1 [facility] Protein [Mass/volume] in Ser um or PlasmaOrdered By: Krzysztof Salazar on 09-20-2023 Protein [Mass/Vol] 7.7 g/dL 6.4-8.[address] [facility] Protein [Mass/Vol] 7.8 g/dL 6.0-8.[address] [facility] RBC Auto (Bld) [#/Vol]Ordere d By: Krzysztof Salazar on 09-20-2023 RBC (Bld) [#/Vol] 4.86 10*6/uL 3.60-5.00 [facility] Serum globulin measurement ( mass/volume)Ordered By: Krzysztof Salazar on 09-20-2023 Globulin (S) [Mass/Vol] 4.0 g/dL 2.2-3.9 [facility] Serum or plasma albumin/glob ulin mass ratioOrdered By: Krzysztof Salazar on 09-20-2023 Albumin/Globulin [Mass ratio] 1.2 {ratio} [facility] Albumin/Globulin [Mass ratio] 1.0 {ratio} 0.7-1.7 [facility] Serum or plasma alpha 1 glob ulin measurement by electrophoresis (mass/volume)Ordered By: Krzysztof Salazar on 09-20-2023 Alpha 1 globulin Elph [Mass/Vol] 0.3 g/dL 0.0-0.4 [facility] Serum or plasma alpha 2 glob ulin measurement by electrophoresis (mass/volume)Ordered By: Krzysztof Salazar on 09-20-2023 Alpha 2 globulin Elph [Mass/Vol] 0.8 g/dL 0.4-1.0 [facility] Serum or plasma anion gap de terminationOrdered By: Krzysztof Salazar on 09-20-2023 Anion gap [Moles/Vol] 11.0 mmol/L 6.0-15.0 [facility] Serum or plasma beta globuli n measurement by electrophoresis (mass/volume)Ordered By: Krzysztof Salazar on 09-20-2023 Beta globulin Elph [Mass/Vol] 1.2 g/dL 0.7-1.3 [facility] Serum or plasma gamma globul in measurement by electrophoresis (mass/volume)Ordered By: Krzysztof Salazar on 09-20-2023 Gamma globulin Elph [Mass/Vol] 1.8 g/dL 0.4-1.8 [facility] Sodium [Moles/volume] in Ser um or PlasmaOrdered By: Krzysztof Salazar on 09-20-2023 Sodium [Moles/Vol] 136 mmol/L 136-[address] [facility] Transferrin [Mass/volume] in Serum or PlasmaOrdered By: Krzysztof Salazar on 09-20-2023 Transferrin [Mass/Vol] 246 mg/dL 203-362 [facility] Urea nitrogen [Mass/volume] in Serum or PlasmaOrdered By: Krzysztof Salazar on 09-20-2023 Urea nitrogen [Mass/Vol] 16 mg/dL 7 [facility] WBC Auto (Bld) [#/Vol]Ordere d By: Krzysztof Salazar on 09-20-2023 WBC (Bld) [#/Vol] 8.5 10*3/uL 3.8-11.[address] [facility] Alanine aminotransferase [En zymatic activity/volume] in Serum or PlasmaOrdered By: Elizabeth Alvarado on 08-24-2023 ALT [Catalytic activity/Vol] 28 U/L [facility] Albumin [Mass/volume] in Ser um or Plasma by Bromocresol green (BCG) dye binding methoOrdered By: Elizabeth Alvarado on 08-24-2023 Albumin BCG dye [Mass/Vol] 4.3 g/dL 3.5-5.7 [facility] Alkaline phosphatase [Enzyma tic activity/volume] in Serum or PlasmaOrdered By: Elizabeth Alvarado on 08-24-2023 ALP [Catalytic activity/Vol] 86 U/L 34-104 [facility] Aspartate aminotransferase [ Enzymatic activity/volume] in Serum or PlasmaOrdered By: Elizabeth Alvarado on 08-24-2023 AST [Catalytic activity/Vol] 28 U/L 13-39 [facility] Basophils Auto (Bld) [#/Vol] Ordered By: Elizabeth Alvarado on 08-24-2023 Basophils (Bld) [#/Vol] 0.1 10*3/uL 0.0-0.2 [facility] Basophils/100 WBC Auto (Bld) Ordered By: Elizabeth Alvarado on 08-24-2023 Basophils/100 WBC (Bld) 0.7 % . F [facility] Bilirubin.total [Mass/volume ] in Serum or PlasmaOrdered By: Elizabeth Alvarado on 08-24-2023 Bilirubin [Mass/Vol] 0.4 mg/dL 0.3-1.0 [facility] Calcium [Mass/volume] in Ser um or PlasmaOrdered By: Elizabeth Alvarado on 08-24-2023 Calcium [Mass/Vol] 9.4 mg/dL 8.6-10.[address] [facility] Carbon dioxide, total [Moles /volume] in Serum or PlasmaOrdered By: Elizabeth Alvarado on 08-24-2023 CO2 [Moles/Vol] 29.2 mmol/L 21.0-31.0 [facility] Chloride [Moles/volume] in S hugo or PlasmaOrdered By: Elizabeth Alvarado on 08-24-2023 Chloride [Moles/Vol] 96 mmol/L 98-107 [facility] Cholesterol [Mass/volume] in Serum or PlasmaOrdered By: Elizabeth Alvarado on 08-24-2023 Cholesterol [Mass/Vol] 160 mg/dL 140-200 [facility] Comment on above: Chol less than 200 m g/dl low riskChol 201-239 mg/dl borderline riskChol 240 mg/dl and greater high risk Cholesterol in LDL Calc [Mas s/Vol]Ordered By: Elizabeth Alvarado on 08-24-2023 Cholesterol in LDL [Mass/Vol] 78 mg/dL 0-100 [facility] Comment on above: LDL ATP III CLASSIFI CATIONLDL less than 100 mg/dL OptimalLDL 100-129 mg/dL Near or above optimalLDL 130-159 mg/dL Borderline highLDL 160-189 mg/dL HighLDL greater than 189 mg/dL Very high Cholesterol in VLDL Calc [Ma ss/Vol]Ordered By: Elizabeth Alvarado on 08-24-2023 Cholesterol in VLDL [Mass/Vol] 22 mg/dL [facility] Creatinine [Mass/volume] in Serum or PlasmaOrdered By: Elizabeth Alvarado on 08-24-2023 Creatinine [Mass/Vol] 0.65 mg/dL 0.60-1.20 [facility] Creatinine [Mass/volume] in UrineOrdered By: Elizabeth Alvarado on 08-24-2023 Creatinine (U) [Mass/Vol] 76.0 mg/dL [facility] Comment on above: No reference range e stablished Eosinophils Auto (Bld) [#/Vo l]Ordered By: Elizabeth Alvarado on 08-24-2023 Eosinophils (Bld) [#/Vol] 0.3 10*3/uL 0.0-0.45 [facility] Eosinophils/100 WBC Auto (Bl d)Ordered By: Elizabeth Alvarado on 08-24-2023 Eosinophils/100 WBC (Bld) 3.3 % . [facility] Erythrocyte distribution wid th Auto (RBC) [Ratio]Ordered By: Elizabeth Alvarado on 08-24-2023 Erythrocyte distribution width (RBC) [Ratio] 15.8 % 11.9-15.3 [facility] Globulin Calc (S) [Mass/Vol] Ordered By: Elizabeth Alvarado on 08-24-2023 Globulin (S) [Mass/Vol] 3.4 g/dL F [facility] Glucose [Mass/volume] in Ser um or PlasmaOrdered By: Elizabeth Alvarado on 08-24-2023 Glucose [Mass/Vol] 92 mg/dL 70-[address] [facility] Comment on above: ADA recommended refe rence rangeRandom Glucose Reference Range is dependent on time and content of last meal. Glucose of more than 200 mg/dL in a nonstressed, ambulatory subject supports the diagnosis of Diabetes Mellitus. Hematocrit Auto (Bld) [Volum e fraction]Ordered By: Elizabeth Alvarado on 08-24-2023 Hematocrit (Bld) [Volume fraction] 40.6 % 34.0-46.4 [facility] Hemoglobin [Mass/volume] in BloodOrdered By: Elizabeth Alvarado on 08-24-2023 Hemoglobin (Bld) [Mass/Vol] 13.2 g/dL 11.8-15.4 [facility] Leukocytes [#/volume] correc silverio for nucleated erythrocytes in Blood by Automated counOrdered By: Elizabeth Alvarado on 08-24-2023 WBC corrected for nucl RBC Auto (Bld) [#/Vol] 10.2 10*3/uL 3.8-11.6 [facility] Lymphocytes Auto (Bld) [#/Vo l]Ordered By: Elizabeth Alvarado on 08-24-2023 Lymphocytes (Bld) [#/Vol] 2.6 10*3/uL 1.00-4.8 [facility] Lymphocytes/100 WBC Auto (Bl d)Ordered By: Elizabeth Alvarado on 08-24-2023 Lymphocytes/100 WBC (Bld) 25.5 % . [facility] MCH Auto (RBC) [Entitic mass ]Ordered By: Elizabeth Alvarado on 08-24-2023 MCH (RBC) [Entitic mass] 26.1 pg 24.7-34.3 [facility] MCHC Auto (RBC) [Mass/Vol]Or dered By: Elizabeth Alvarado on 08-24-2023 MCHC (RBC) [Mass/Vol] 32.5 g/dL 32.0-35.0 [facility] MCV Auto (RBC) [Entitic vol] Ordered By: Elizabeth Alvarado on 08-24-2023 MCV (RBC) [Entitic vol] 80.3 fL 80-100 [facility] Microalbumin [Mass/volume] i n UrineOrdered By: Elizabeth Alvarado on 08-24-2023 Albumin DL <= 20 mg/L (U) [Mass/Vol] mg/dL 0.0-1.8 [facility] Monocytes Auto (Bld) [#/Vol] Ordered By: Elizabeth Alvarado on 08-24-2023 Monocytes (Bld) [#/Vol] 0.8 10*3/uL 0.0-0.8 [facility] Monocytes/100 WBC Auto (Bld) Ordered By: Elizabeth Alvarado on 08-24-2023 Monocytes/100 WBC (Bld) 8.1 % . F [facility] Neutrophils Auto (Bld) [#/Vo l]Ordered By: Elizabeth Alvarado on 08-24-2023 Neutrophils (Bld) [#/Vol] 6.4 10*3/uL 1.8-7.7 [facility] Neutrophils/100 WBC Auto (Bl d)Ordered By: Elizabeth Alvarado on 08-24-2023 Neutrophils/100 WBC (Bld) 62.4 % . [facility] No Panel InformationOrdered By: Elizabeth Alvarado on 08-24-2023 Estimated GFR (CKD-EPI) > 60.0 mL/Min [facility] Creatinine Clearance (Chem N/A [facility] Nucleated erythrocytes [Pres ence] in Blood by Automated countOrdered By: Elizabeth Alvarado on 08-24-2023 Nucleated RBC Auto Ql (Bld) 0.2 /100{WBC} 0-0.5 [facility] Platelet mean volume Auto (B ld) [Entitic vol]Ordered By: Elizabeth Alvarado on 08-24-2023 Platelet mean volume (Bld) [Entitic vol] 9.8 fL 6.3-10.7 [facility] Platelets Auto (Bld) [#/Vol] Ordered By: Elizabeth Alvarado on 08-24-2023 Platelets (Bld) [#/Vol] 283 10*3/uL 150-450 [facility] Potassium [Moles/volume] in Serum or PlasmaOrdered By: Elizabeth Alvarado on 08-24-2023 Potassium [Moles/Vol] 4.3 mmol/L 3.5-5.1 [facility] Protein [Mass/volume] in Ser um or PlasmaOrdered By: Elizabeth Alvarado on 08-24-2023 Protein [Mass/Vol] 7.7 g/dL 6.4-8.[address] [facility] RBC Auto (Bld) [#/Vol]Ordere d By: Elizabeth Alvarado on 08-24-2023 RBC (Bld) [#/Vol] 5.06 10*6/uL 3.60-5.00 [facility] Serum or plasma albumin/glob ulin mass ratioOrdered By: Elizabeth Alvarado on 08-24-2023 Albumin/Globulin [Mass ratio] 1.3 {ratio} [facility] Serum or plasma anion gap de terminationOrdered By: Elizabeth Alvarado on 08-24-2023 Anion gap [Moles/Vol] 18.1 mmol/L 6.0-15.0 [facility] Serum or plasma high density lipoprotein (HDL) cholesterol measurementOrdered By: Elizabeth Alvarado on 08-24-2023 Cholesterol in HDL [Mass/Vol] 60 mg/dL 23-92 [facility] Comment on above: HDL CHOL ATP-III CLA SSIFICATION Cardiovascular RiskHDL > or equal to 60 mg/dL LOWHDL < 40 mg/dL HIGH Serum or plasma total choles terol/high density lipoprotein (HDL) cholesterol mass ratOrdered By: Elizabeth Alvarado on 08-24-2023 Cholesterol.total/Choles terol in HDL [Mass ratio] 2.7 {ratio} <5.0 [facility] Sodium [Moles/volume] in Ser um or PlasmaOrdered By: Elizabeth Alvarado on 08-24-2023 Sodium [Moles/Vol] 139 mmol/L 136-[address] [facility] Thyrotropin [Units/volume] i n Serum or PlasmaOrdered By: Elizabeth Alvarado on 08-24-2023 TSH Qn 2.40 m[IU]/L 0.45-5.33 [facility] Triglyceride [Mass/volume] i n Serum or PlasmaOrdered By: Elizabeth Alvarado on 08-24-2023 Triglyceride [Mass/Vol] 112 mg/dL 0-149 [facility] Comment on above: TRIG ATP III CLASSIF ICATIONTRIG less than 150 mg/dL NormalTRIG 150-199 mg/dL Borderline highTRIG 200-500 mg/dL High TRIG greater than 500 mg/dL Very highStandard traceable to the Center for Disease Conrtrol and Prevention (CDC) test method. Urea nitrogen [Mass/volume] in Serum or PlasmaOrdered By: Elizabeth Alvarado on 08-24-2023 Urea nitrogen [Mass/Vol] 17 mg/dL 7-25 [facility] Urine microalbumin/creatinin e mass ratioOrdered By: Elizabeth Alvarado on 08-24-2023 Albumin/Creatinine DL <= 20 mg/L (U) [Mass ratio] TNP [facility] Comment on above: Test not performed WBC Auto (Bld) [#/Vol]Ordere d By: Elizabeth Alvarado on 08-24-2023 WBC (Bld) [#/Vol] 10.2 10*3/uL 3.8-11.6 [facility] Established Visit (Orthopaed ic Surgery)on [...] grammatical areas may persist related to the [employer] software Merrill Alejandro PA-C . Active Problems [...] Dec 29 2022 1:38PM EST (Author) Normal Nativo Established Visit (Orthopaed ic Surgery)on 09-22-2022 Established [...] grammatical areas may persist related to the [employer] software Acosta Schafer MD Senior Attending Physician [facility] [place] . Active Problems Problems Acute pain of [...] 1 tablet daily Results/Data Xray Knee 3 [id number] 01:48PMAcosta Schafer Test NameResultFlagReference Xray Knee 3 View(Report) FINAL REPORT Interpreted by: ACOSTA SCHAFER BURTON, MD 09/22/22 14:13 Patient Name: GEETA SHELTON STUDY: KNEE; 3 VIEWS; Right; 09/22/2022 1:48 pm INDICATION: pain Z96.659: Status post total knee replacement. ACCESSION NUMBER(S): [id number] ORDERING CLINICIAN: ACOSTA SCHAFER FINDINGS: Right knee [...] Status post total knee replacement. ACCESSION NUMBER(S): [id number] ORDERING CLINICIAN: ACOSTA SCHAFER FINDINGS: Right knee three views. Status post revision total knee replacement components in good position no signs of fracture dislocation or other bony abnormalities Electronically signed by: ACOSTA SCHAFER MD Normal [facility] Radiologyon 09-22-2022 XR Knee 3 Views Normal [facility] Work Phone: Alanine aminotransferase [En zymatic activity/volume] in Serum or PlasmaOrdered By: Zoey Ramirez on 08-17-2022 ALT [Catalytic activity/Vol] 45 U/L 7-52 [facility] Albumin [Mass/volume] in Ser um or PlasmaOrdered By: Zoey Ramirez on 08-17-2022 Albumin [Mass/Vol] 3.7 g/dL 2.9-4.[address] [facility] Albumin [Mass/volume] in Ser um or Plasma by Bromocresol green (BCG) dye binding methoOrdered By: Zoey Ramirez on 08-17-2022 Albumin BCG dye [Mass/Vol] 4.1 g/dL 3.5-5.7 [facility] Albumin/Protein.total in 24 hour Urine by ElectrophoresisOrdered By: Zoey Ramirez on 08-17-2022 Albumin Elph (24H U) [Mass fraction] 59.9 % . [facility] Alkaline phosphatase [Enzyma tic activity/volume] in Serum or PlasmaOrdered By: Zoey Ramirez on 08-17-2022 ALP [Catalytic activity/Vol] 90 U/L 34-104 [facility] Aspartate aminotransferase [ Enzymatic activity/volume] in Serum or PlasmaOrdered By: Zoey Ramirez on 08-17-2022 AST [Catalytic activity/Vol] 40 U/L 13-39 [facility] Basophils Auto (Bld) [#/Vol] Ordered By: Zoey Ramirez on 08-17-2022 Basophils (Bld) [#/Vol] 0.1 10*3/uL 0.0-0.2 [facility] Basophils/100 WBC Auto (Bld) Ordered By: Zoey Ramirez on 08-17-2022 Basophils/100 WBC (Bld) 0.9 % . [facility] Bilirubin.total [Mass/volume ] in Serum or PlasmaOrdered By: Zoey Ramirez on 08-17-2022 Bilirubin [Mass/Vol] 0.4 mg/dL 0.3-1.0 [facility] Calcium [Mass/volume] in Ser um or PlasmaOrdered By: Zoey Ramirez on 08-17-2022 Calcium [Mass/Vol] 9.1 mg/dL 8.6-10.[address] [facility] Carbon dioxide, total [Moles /volume] in Serum or PlasmaOrdered By: Zoey Ramirez on 08-17-2022 CO2 [Moles/Vol] 27.9 mmol/L 21.0-31.0 [facility] Chloride [Moles/volume] in S hugo or PlasmaOrdered By: Zoey Ramirez on 08-17-2022 Chloride [Moles/Vol] 100 mmol/L 98-107 [facility] Creatinine [Mass/volume] in Serum or PlasmaOrdered By: Zoey Ramirez on 08-17-2022 Creatinine [Mass/Vol] 0.71 mg/dL 0.60-1.20 [facility] Eosinophils Auto (Bld) [#/Vo l]Ordered By: Zoey Ramirez on 08-17-2022 Eosinophils (Bld) [#/Vol] 0.3 10*3/uL 0.0-0.45 [facility] Eosinophils/100 WBC Auto (Bl d)Ordered By: Zoey Ramirez on 08-17-2022 Eosinophils/100 WBC (Bld) 3.1 % . [facility] Erythrocyte distribution wid th Auto (RBC) [Ratio]Ordered By: Zoey Ramirez on 08-17-2022 Erythrocyte distribution width (RBC) [Ratio] 16.5 % 11.9-15.3 [facility] Ferritin [Mass/volume] in Se rum or PlasmaOrdered By: Zoey Ramirez on 08-17-2022 Ferritin [Mass/Vol] 85.3 ng/mL 11.0-306.8 [facility] Folate [Mass/volume] in Seru m or PlasmaOrdered By: Zoey Ramirez on 08-17-2022 Folate [Mass/Vol] 15.1 ng/mL >5.9 [facility] Comment on above: Folate reference ran ge: >5.9 ng/mlThe WHO technical consultation on folate and vitamin [id number] has determined that folate concentrations lessthan 4 ng/ml are considered deficient. Gamma globulin/Protein.total in 24 hour Urine by ElectrophoresisOrdered By: Zoey Ramirez on 08-17-2022 Gamma globulin Elph (24H U) [Mass fraction] 15.3 % . [facility] Globulin Calc (S) [Mass/Vol] Ordered By: Zoey Ramirez on 08-17-2022 Globulin (S) [Mass/Vol] 4.0 g/dL [facility] Glucose [Mass/volume] in Ser um or PlasmaOrdered By: Zoey Ramirez on 08-17-2022 Glucose [Mass/Vol] 142 mg/dL 70-[address] [facility] Comment on above: ADA recommended refe rence rangeRandom Glucose Reference Range is dependent on time and content of last meal. Glucose of more than 200 mg/dL in a nonstressed, ambulatory subject supports the diagnosis of Diabetes Mellitus. Hematocrit Auto (Bld) [Volum e fraction]Ordered By: Zoey Ramirez on 08-17-2022 Hematocrit (Bld) [Volume fraction] 41.3 % 34.0-46.4 [facility] Hemoglobin [Mass/volume] in BloodOrdered By: Zoey Ramirez on 08-17-2022 Hemoglobin (Bld) [Mass/Vol] 13.2 g/dL 11.8-15.4 [facility] IgA [Mass/volume] in Serum o r PlasmaOrdered By: Zoey Ramirez on 08-17-2022 IgA [Mass/Vol] 498 mg/dL 87-352 [facility] IgG [Mass/volume] in Serum o r PlasmaOrdered By: Zoey Ramirez on 08-17-2022 IgG [Mass/Vol] 1834 mg/dL 586-1602 [facility] IgM [Mass/volume] in Serum o r PlasmaOrdered By: Zoey Ramirez on 08-17-2022 IgM [Mass/Vol] 124 mg/dL 26-217 [facility] Comment on above: Performed at: [facility] [address] [id number] Director: Jeyson Duncan PhD, Phone: [phone] Immunofixation for UrineOrde red By: Zoey Ramirez on 08-17-2022 Interpretation Immunofixation (U) [Interp] See comment . [facility] Comment on above: No monoclonality det ected.Performed at: [facility] [address] [id number] Director: Jeyson Duncan PhD, Phone: [phone] Immunoglobulin light chains. kappa.free [Mass/volume] in SerumOrdered By: Zoey Ramirez on 08-17-2022 Immunoglobulin light chains.kappa.free (S) [Mass/Vol] 47.1 mg/L 3.3-19.4 [facility] Immunoglobulin light chains. kappa.free/Immunoglobulin light chains.lambda.free [MassOrdered By: Zoey Ramirez on 08-17-2022 Immunoglobulin light chains.kappa.free/Immuno globulin light chains.lambda.free (S) [Mass ratio] 1.65 0.26-1.65 [facility] Comment on above: Performed at: - [address] [id number] Director: Jeyson Duncan PhD, Phone: [phone] Immunoglobulin light chains. lambda.free [Mass/volume] in Serum or PlasmaOrdered By: Zoey Ramirez on 08-17-2022 Immunoglobulin light chains.lambda.free [Mass/Vol] 28.6 mg/L 5.7-26.3 [facility] Iron [Mass/volume] in Serum or PlasmaOrdered By: Zoey Ramirez on 08-17-2022 Iron [Mass/Vol] 41 ug/dL 50-212 [facility] Iron binding capacity [Mass/ volume] in Serum or PlasmaOrdered By: Zoey Ramirez on 08-17-2022 Iron binding capacity [Mass/Vol] 344 ug/dL 255-450 [facility] Iron saturation [Mass Fracti on] in Serum or PlasmaOrdered By: Zoey Ramirez on 08-17-2022 Iron saturation [Mass fraction] 11.9 % 20-50 [facility] Leukocytes [#/volume] correc silverio for nucleated erythrocytes in Blood by Automated counOrdered By: Zoey Ramirez on 08-17-2022 WBC corrected for nucl RBC Auto (Bld) [#/Vol] 9.9 10*3/uL 3.8-11.6 [facility] Lymphocytes Auto (Bld) [#/Vo l]Ordered By: Zoey Ramirez on 08-17-2022 Lymphocytes (Bld) [#/Vol] 2.8 10*3/uL 1.00-4.8 [facility] Lymphocytes/100 WBC Auto (Bl d)Ordered By: Zoey Ramirez on 08-17-2022 Lymphocytes/100 WBC (Bld) 28.5 % . [facility] MCH Auto (RBC) [Entitic mass ]Ordered By: Zoey Ramirez on 08-17-2022 MCH (RBC) [Entitic mass] 24.9 pg 24.7-34.3 [facility] MCHC Auto (RBC) [Mass/Vol]Or dered By: Zoey Ramirez on 08-17-2022 MCHC (RBC) [Mass/Vol] 32.0 g/dL 32.0-35.0 [facility] MCV Auto (RBC) [Entitic vol] Ordered By: Zoey Ramirez on 08-17-2022 MCV (RBC) [Entitic vol] 77.8 fL 80-100 [facility] Monocytes Auto (Bld) [#/Vol] Ordered By: Zoey Ramirez on 08-17-2022 Monocytes (Bld) [#/Vol] 0.6 10*3/uL 0.0-0.8 [facility] Monocytes/100 WBC Auto (Bld) Ordered By: Zoey Ramirez on 08-17-2022 Monocytes/100 WBC (Bld) 5.9 % . [facility] Neutrophils Auto (Bld) [#/Vo l]Ordered By: Zoey Ramirez on 08-17-2022 Neutrophils (Bld) [#/Vol] 6.1 10*3/uL 1.8-7.7 [facility] Neutrophils/100 WBC Auto (Bl d)Ordered By: Zoey Ramirez on 08-17-2022 Neutrophils/100 WBC (Bld) 61.6 % . [facility] No Panel InformationOrdered By: Zoey Ramirez on 08-17-2022 Estimated GFR (CKD-EPI) > 60.0 mL/Min [facility] Creatinine Clearance (Chem 122.85 [facility] Protein Electrophoresis M-Antwan Not observed g/dL Not Observed [facility] Protein Electrophoresis Note See comment . [facility] Comment on above: Protein electrophore sis scan will follow via computer,mail, or experimental outboard motors mechanic delivery.Performed at: [address] [id number] Director: Jeyson Duncan PhD, Phone: [phone] Serum Immunofixation Comment: . [facility] Comment on above: Presence of monoclon al protein is unclear at this time. Suggestrepeat in 3 to 6 months if clinically indicated. Urine Random Prot Electrophor Note See comment . [facility] Comment on above: Protein electrophore sis scan will follow via computer,mail, or experimental outboard motors mechanic delivery.Performed at: [address] [id number] Director: Jeyson Duncan PhD, Phone: [phone] Nucleated erythrocytes [Pres ence] in Blood by Automated countOrdered By: Zoey Ramirez on 08-17-2022 Nucleated RBC Auto Ql (Bld) 0.1 /100{WBC} 0-0.5 [facility] Platelet mean volume Auto (B ld) [Entitic vol]Ordered By: Zoey Ramirez on 08-17-2022 Platelet mean volume (Bld) [Entitic vol] 8.5 fL 6.3-10.7 [facility] Platelets Auto (Bld) [#/Vol] Ordered By: Zoey Ramirez on 08-17-2022 Platelets (Bld) [#/Vol] 345 10*3/uL 150-450 [facility] Potassium [Moles/volume] in Serum or PlasmaOrdered By: Zoey Ramirez on 08-17-2022 Potassium [Moles/Vol] 4.7 mmol/L 3.5-5.1 [facility] Protein [Mass/volume] in Ser um or PlasmaOrdered By: Zoey Ramirez on 08-17-2022 Protein [Mass/Vol] 8.1 g/dL 6.4-8.[address] [facility] Protein [Mass/Vol] 8.0 g/dL 6.0-8.[address] [facility] Protein [Mass/volume] in Uri neOrdered By: Zoey Ramirez on 08-17-2022 Protein (U) [Mass/Vol] 75.0 mg/dL Not Estab. [facility] Protein.monoclonal/Protein.t otal in 24 hour Urine by ElectrophoresisOrdered By: Zoey Ramirez on 08-17-2022 Protein.monoclonal Elph (24H U) [Mass fraction] Not observed % Not Observed [facility] RBC Auto (Bld) [#/Vol]Ordere d By: Zoey Ramirez on 08-17-2022 RBC (Bld) [#/Vol] 5.31 10*6/uL 3.60-5.00 [facility] Serum globulin measurement ( mass/volume)Ordered By: Zoey Ramirez on 08-17-2022 Globulin (S) [Mass/Vol] 4.3 g/dL 2.2-3.9 [facility] Serum or plasma albumin/glob ulin mass ratioOrdered By: Zoey Ramirez on 08-17-2022 Albumin/Globulin [Mass ratio] 1.0 {ratio} [facility] Albumin/Globulin [Mass ratio] 0.9 {ratio} 0.7-1.7 [facility] Serum or plasma alpha 1 glob ulin measurement by electrophoresis (mass/volume)Ordered By: Zoey Ramirez on 08-17-2022 Alpha 1 globulin Elph [Mass/Vol] 0.3 g/dL 0.0-0.4 [facility] Serum or plasma alpha 2 glob ulin measurement by electrophoresis (mass/volume)Ordered By: Zoey Ramirez on 08-17-2022 Alpha 2 globulin Elph [Mass/Vol] 0.8 g/dL 0.4-1.0 [facility] Serum or plasma anion gap de terminationOrdered By: Zoey Ramirez on 08-17-2022 Anion gap [Moles/Vol] 12.8 mmol/L 6.0-15.0 [facility] Serum or plasma beta globuli n measurement by electrophoresis (mass/volume)Ordered By: Zoey Ramirez on 08-17-2022 Beta globulin Elph [Mass/Vol] 1.3 g/dL 0.7-1.3 [facility] Serum or plasma gamma globul in measurement by electrophoresis (mass/volume)Ordered By: Zoey Ramirez on 08-17-2022 Gamma globulin Elph [Mass/Vol] 1.9 g/dL 0.4-1.8 [facility] Sodium [Moles/volume] in Ser um or PlasmaOrdered By: Zoey Ramirez on 08-17-2022 Sodium [Moles/Vol] 136 mmol/L 136-[address] [facility] Transferrin [Mass/volume] in Serum or PlasmaOrdered By: Zoey Ramirez on 08-17-2022 Transferrin [Mass/Vol] 246 mg/dL 203-362 [facility] Urea nitrogen [Mass/volume] in Serum or PlasmaOrdered By: Zoey Ramirez on 08-17-2022 Urea nitrogen [Mass/Vol] 23 mg/dL 7-25 [facility] Urine alpha 1 globulin/total protein by electrophoresisOrdered By: Zoey Ramirez on 08-17-2022 Alpha 1 globulin Elph (U) [Mass fraction] 4.5 % . [facility] Urine alpha 2 globulin/total protein ratio by electrophoresisOrdered By: Zoey Ramirez on 08-17-2022 Alpha 2 globulin Elph (U) [Mass fraction] 7.7 % . [facility] Urine beta globulin measurem ent by electrophoresis (mass/volume)Ordered By: Zoey Ramirez on 08-17-2022 Beta globulin Elph (U) [Mass/Vol] 12.6 % . [facility] Vitamin B12 ser/plasOrdered By: Zeoy Ramirez on 08-17-2022 Cobalamin (Vitamin B12) [Mass/Vol] 387 pg/mL 180-914 [facility] WBC Auto (Bld) [#/Vol]Ordere d By: Zoey Ramirez on 08-17-2022 WBC (Bld) [#/Vol] 9.9 10*3/uL 3.8-11.[address] [facility] Established Visit (Orthopaed ic Surgery)on 08-11-2022 [...] to do her outpatient physical therapy at [facility]. She has a few visits left. [...] grammatical areas may persist related to the [employer] software Merrill Alejandro PA-C . Active Problems [...] Aug 11 2022 10:34AM EST (Author) Normal [employer] Albumin [Mass/volume] in Ser um or PlasmaOrdered By: Lorrie Baig on 07-23-2022 Albumin [Mass/Vol] 3.3 g/dL 2.9-4.[address] [facility] Creatine kinase [Enzymatic a ctivity/volume] in Serum or PlasmaOrdered By: Lorrie Baig on 07-23-2022 CK [Catalytic activity/Vol] 51 U/L 30-223 [facility] Erythrocyte sedimentation ra te by Photometric methodOrdered By: Lorrie Baig on 07-23-2022 ESR Photometric method (Bld) [Velocity] 65 mm/hr 0-29 [facility] Folate [Mass/volume] in Seru m or PlasmaOrdered By: Lorrie Baig on 07-23-2022 Folate [Mass/Vol] 12.8 ng/mL >5.9 [facility] Comment on above: Folate reference ran ge: >5.9 ng/mlThe WHO technical consultation on folate and vitamin [id number] has determined that folate concentrations lessthan 4 ng/ml are considered deficient. Magnesium [Mass/volume] in S hugo or PlasmaOrdered By: Lorrie Baig on 07-23-2022 Magnesium [Mass/Vol] 1.8 mg/dL 1.9-2.7 [facility] No Panel InformationOrdered By: Lorrie Baig on 07-23-2022 Protein Electrophoresis Interpret See comment . [facility] Comment on above: Faint band in gamma region suspicious for monoclonalimmunoglobulin. This band may represent a benign spike asseen in older people or could be a paraprotein as seen inMultiple Myeloma, Waldenstrom's Macroglobulinemia orLymphoma. Depending on clinical circumstances, furtherdiagnostic studies may include serum immunofixation orserum free light chain quantitation.Performed at: [address] [id number] Director: Jeyson Duncan PhD, Phone: [phone] Protein Electrophoresis M-Antwan Comment: g/dL Not Observed [facility] Comment on above: ASYMMETRICAL GAMMA Protein Electrophoresis Note See comment . [facility] Comment on above: Protein electrophore sis scan will follow via computer,mail, or experimental outboard motors mechanic delivery. Phosphate [Mass/volume] in S hugo or PlasmaOrdered By: Lorrie Baig on 07-23-2022 Phosphate [Mass/Vol] 4.5 mg/dL 3.7-7.2 [facility] Protein [Mass/volume] in Ser um or PlasmaOrdered By: Lorrie Baig on 07-23-2022 Protein [Mass/Vol] 7.2 g/dL 6.0-8.[address] [facility] Serum globulin measurement ( mass/volume)Ordered By: Lorrie Baig on 07-23-2022 Globulin (S) [Mass/Vol] 3.9 g/dL 2.2-3.9 [facility] Serum or plasma albumin/glob ulin mass ratioOrdered By: Lorrie Baig on 07-23-2022 Albumin/Globulin [Mass ratio] 0.8 {ratio} 0.7-1.7 [facility] Serum or plasma alpha 1 glob ulin measurement by electrophoresis (mass/volume)Ordered By: Lorrie Baig on 07-23-2022 Alpha 1 globulin Elph [Mass/Vol] 0.3 g/dL 0.0-0.4 [facility] Serum or plasma alpha 2 glob ulin measurement by electrophoresis (mass/volume)Ordered By: Lorrie Baig on 07-23-2022 Alpha 2 globulin Elph [Mass/Vol] 0.7 g/dL 0.4-1.0 [facility] Serum or plasma beta globuli n measurement by electrophoresis (mass/volume)Ordered By: Lorrie Baig on 07-23-2022 Beta globulin Elph [Mass/Vol] 1.2 g/dL 0.7-1.3 [facility] Serum or plasma gamma globul in measurement by electrophoresis (mass/volume)Ordered By: Lorrie Baig on 07-23-2022 Gamma globulin Elph [Mass/Vol] 1.7 g/dL 0.4-1.8 [facility] Thyrotropin [Units/volume] i n Serum or PlasmaOrdered By: Lorrie Baig on 07-23-2022 TSH Qn 4.76 m[IU]/L 0.45-5.33 [facility] Vitamin B12 ser/plasOrdered By: Lorrie Baig on 07-23-2022 Cobalamin (Vitamin B12) [Mass/Vol] 358 pg/mL 180-914 [facility] KNEE 3 VIEWSon 07-14-2022 KNEE 3 VIEWS Patient Name: GEETA SHELTON STUDY: KNEE; 3 VIEWS; Right; 07/14/2022 8:47 am INDICATION: pain Z96.659: Status post total knee replacement. ACCESSION NUMBER(S): [id number] ORDERING CLINICIAN: ACOSTA SCHAFER FINDINGS: Right knee [...] most likely do this at [facility] in [place]. Physical exam General: No acute distress and [...] grammatical areas may persist related to the [employer] software Merrill Alejandro PA-C . Active Problems Problems Acute pain of both knees (338.19,719.46) (M25.561,M25.562) Status post total knee replacement (V43.65) (Z96.659) Allergies Medication Penicillins Recorded By: Tarsha Murray; 05/18/2022 8:47:33 AM Current Meds Medication NameInstruction Xarelto 10 MG Oral TabletTake 1 tablet daily Results/Data Xray Knee 3 [id number] 08:47AMSAcosta steward Test NameResultFlagReference Xray Knee 3 View(Report) FINAL REPORT Interpreted by: ACOSTA SCHAFER BURTON, MD 07/14/22 08:49 Patient Name: GEETA SHELTON STUDY: KNEE; 3 VIEWS; Right; 07/14/2022 8:47 am INDICATION: pain Z96.659: Status post total knee replacement. ACCESSION NUMBER(S): [id number] ORDERING CLINICIAN: ACOSTA SCHAFER FINDINGS: Right knee [...] Radiologyon 07-14-2022 XR Knee 3 Views Normal -[facility] Work Phone: Basic Metabolic Panel Reflex Mgon 07-03-2022 Anion gap [Moles/Vol] 10 mmol/L Normal 9-15 [facility] Comment on above: Performed By: #### B MPX #### [facility] [address] [place] [address] Calcium [Mass/Vol] 9.2 mg/dL Normal 8.5-9.9 [facility] Comment on above: Performed By: #### B MPX #### [facility] [address] [place] [address] Chloride [Moles/Vol] 100 mmol/L Normal 95-107 [facility] Comment on above: Performed By: #### B MPX #### [facility] [address] [place] [address] CO2 [Moles/Vol] 27 mmol/L Normal 20-31 [facility] Comment on above: Performed By: #### B MPX #### [facility] [address] [place] [address] Creatinine [Mass/Vol] 0.51 mg/dL Normal 0.50-0.90 [facility] Comment on above: Performed By: #### B MPX #### [facility] [address] [place] [address] GFR >60.0 Normal >60 [facility] Comment on above: Result Comment: Pedi [...] secretion. Performed By: #### B MPX #### [facility] [address] [place] [address] Glucose [Mass/Vol] 132 mg/dL Critically high 70-99 [facility] Comment on above: Performed By: #### B MPX #### [facility] [address] [place] [address] Magnesium [Moles/Vol] 4.6 mmol/L Normal 3.4-4.9 [facility] Comment on above: Performed By: #### B MPX #### [facility] [address] [place] [address] Sodium [Moles/Vol] 137 mmol/L Normal 135-144 [facility] Comment on above: Performed By: #### B MPX #### [facility] [address] [place] [address] Urea nitrogen [Mass/Vol] 12 mg/dL Normal 6-20 [facility] Comment on above: Performed By: #### B MPX #### [facility] [address] [place] [address] Basic Metabolic Panel w/ Ref hillary to MGon 07-03-2022 Anion gap [Moles/Vol] 10 mmol/L [facility] [employer] Calcium [Mass/Vol] 9.2 mg/dL 8.5 - 9.9 mg/dL [facility] [employer] Chloride [Moles/Vol] 100 mmol/L [facility] [employer] CO2 [Moles/Vol] 27 mmol/L [facility] [employer] Creatinine [Mass/Vol] 0.51 mg/dL 0.50 - 0.90 mg/dL [facility] GFR/1.73 sq M.predicted MDRD (S/P/Bld) [Vol rate/Area] 60 - [facility] Comment on above: Pediatric calculator link https://www.kidney.org/professionals/kdoqi/gfr_calculatorped [...] 132 mg/dL High 70 - 99 mg/dL [facility] Interpretation and review of laboratory results Abnormal [facility] Potassium reflex Magnesium 4.6 [facility] Sodium [Moles/Vol] 137 mmol/L [facility] Urea nitrogen (BldV) [Mass/Vol] 12 mg/dL 6 - 20 mg/dL [facility] CBCon 07-03-2022 Hematocrit (Bld) [Volume fraction] 39.9 % 37.0 - 47.0 % [facility] Hemoglobin (Bld) [Mass/Vol] 12.9 g/dL 12.0 - 16.0 g/dL [facility] Interpretation and review of laboratory results Abnormal [facility] MCH (RBC) [Entitic mass] 25.7 pg Low 27. 0 - 31.3 pg [facility] MCHC (RBC) [Mass/Vol] 32.3 % Low 33.0 - 37.0 % [facility] MCV (RBC) [Entitic vol] 79.6 fL 79.4 - 94.8 fL [facility] Platelet distribution width (Bld) [Ratio] 16.5 % High 11.5 - 14.5 % [facility] Platelets (Bld) [#/Vol] 230 10*3/uL 130 - 400 K/uL [facility] RBC (Bld) [#/Vol] 5.02 10*6/uL [facility] WBC (Bld) [#/Vol] 9.2 10*3/uL 4.8 - 10.8 K/uL [facility] CBC With Platelet No Differe ntialon 07-03-2022 Erythrocyte distribution width (RBC) [Ratio] 16.5 % Critically high 11.5-14.5 [facility] Comment on above: Performed By: #### C BCND #### [facility] [address] [place] [address] Hematocrit (Bld) [Volume fraction] 39.9 % Normal 37.0-47.0 [facility] Comment on above: Performed By: #### C BCND #### [facility] [address] [place] [address] Hemoglobin (Bld) [Mass/Vol] 12.9 g/dL Normal 12.0-16.0 [facility] Comment on above: Performed By: #### C BCND #### [facility] [address] [place] [address] MCH (RBC) [Entitic mass] 25.7 pg Low 27.0-31.3 [facility] Comment on above: Performed By: #### C BCND #### [facility] [address] [place] [address] MCHC 32.3 % Low 33.0-37.0 [facility] Comment on above: Performed By: #### C BCND #### [facility] [address] [place] [address] MCV (RBC) [Entitic vol] 79.6 fL Normal 79.4-94.8 [facility] Comment on above: Performed By: #### C BCND #### [facility] [address] [place] [address] Platelets (Bld) [#/Vol] 230 10*3/uL Normal 130-400 [facility] Comment on above: Performed By: #### C BCND #### [facility] [address] [place] [address] RBC (Bld) [#/Vol] 5.02 10*6/uL Normal 4.20-5.40 [facility] Comment on above: Performed By: #### C BCND #### [facility] [address] [place] [address] WBC (Bld) [#/Vol] 9.2 10*3/uL Normal 4.8-10.8 [facility] Comment on above: Performed By: #### C BCND #### [facility] [address] [place] [address] Basic Metabolic Panel Reflex Mgon 07-02-2022 Anion gap [Moles/Vol] 8 mmol/L Low 9-15 [facility] Comment on above: Order Comment: Daja ction has been rescheduled by HERAM at 07/02/2022 05:49 Reason: Come back last per rn fouzia Performed By: #### B MPX #### [facility] [address] [place] [address] Calcium [Mass/Vol] 8.9 mg/dL Normal 8.5-9.9 [facility] Comment on above: Order Comment: Daja ction has been rescheduled by HERAM at 07/02/2022 05:49 Reason: Come back last per rn fouzia Performed By: #### B MPX #### [facility] [address] [place] [address] Chloride [Moles/Vol] 100 mmol/L Normal 95-107 [facility] Comment on above: Order Comment: Daja ction has been rescheduled by HERAM at 07/02/2022 05:49 Reason: Come back last per rn fouzia Performed By: #### B MPX #### [facility] [address] [place] [address] CO2 [Moles/Vol] 27 mmol/L Normal 20-31 [facility] Comment on above: Order Comment: Daja ction has been rescheduled by HERAM at 07/02/2022 05:49 Reason: Come back last per rn fouzia Performed By: #### B MPX #### [facility] [address] [place] [address] Creatinine [Mass/Vol] 0.61 mg/dL Normal 0.50-0.90 [facility] Comment on above: Order Comment: Daja ction has been rescheduled by HERAM at 07/02/2022 05:49 Reason: Come back last per rn fouzia Performed By: #### B MPX #### [facility] [address] [place] [address] GFR >60.0 Normal >60 [facility] Comment on above: Order Comment: Daja [...] secretion. Performed By: #### B MPX #### [facility] [address] [place] [address] Glucose [Mass/Vol] 144 mg/dL Critically high 70-99 [facility] Comment on above: Order Comment: Daja zamarripa has been rescheduled by HERAM at 07/02/2022 05:49 Reason: Come back last per kip reinoso Performed By: #### B MPX #### [facility] [address] [place] [address] Magnesium [Moles/Vol] 4.8 mmol/L Normal 3.4-4.9 [facility] Comment on above: Order Comment: Daja zamarripa has been rescheduled by HERAM at 07/02/2022 05:49 Reason: Come back last per kip reinoso Performed By: #### B MPX #### [facility] [address] [place] [address] Sodium [Moles/Vol] 135 mmol/L Normal 135-144 [facility] Comment on above: Order Comment: Daja ction has been rescheduled by HERAM at 07/02/2022 05:49 Reason: Come back last per kip reinoso Performed By: #### B MPX #### [facility] [address] [place] [address] Urea nitrogen [Mass/Vol] 21 mg/dL Critically high 6-20 [facility] Comment on above: Order Comment: Daja ction has been rescheduled by HERAM at 07/02/2022 05:49 Reason: Come back last per kip reinoso Performed By: #### B MPX #### [facility] [address] [place] [address] Basic Metabolic Panel w/ Ref hillary to MGon 07-02-2022 Anion gap [Moles/Vol] 8 mmol/L Low [facility] Calcium [Mass/Vol] 8.9 mg/dL 8.5 - 9.9 mg/dL [facility] Chloride [Moles/Vol] 100 mmol/L [facility] CO2 [Moles/Vol] 27 mmol/L [facility] Creatinine [Mass/Vol] 0.61 mg/dL 0.50 - 0.90 mg/dL [facility] GFR/1.73 sq M.predicted MDRD (S/P/Bld) [Vol rate/Area] 60 - PINF [facility] Comment on above: Pediatric calculator link [...] mg/dL High 70 - 99 mg/dL [facility] Interpretation and review of laboratory results Abnormal [facility] Potassium reflex Magnesium 4.8 [facility] Sodium [Moles/Vol] 135 mmol/L [facility] Urea nitrogen (BldV) [Mass/Vol] 21 mg/dL High 6 - 20 mg/dL [facility] Collection has been rescheduled by VALDO at 07/02/2022 05:49 Reason: Come back last per kip reinoso [facility] CBCon 07-02-2022 Hematocrit (Bld) [Volume fraction] 40.3 % 37.0 - 47.0 % [facility] Hemoglobin (Bld) [Mass/Vol] 12.9 g/dL 12.0 - 16.0 g/dL [facility] Interpretation and review of laboratory results Abnormal [facility] MCH (RBC) [Entitic mass] 25.5 pg Low 27. 0 - 31.3 pg [facility] MCHC (RBC) [Mass/Vol] 32.1 % Low 33.0 - 37.0 % [facility] MCV (RBC) [Entitic vol] 79.6 fL 79.4 - 94.8 fL [facility] Platelet distribution width (Bld) [Ratio] 16.3 % High 11.5 - 14.5 % [facility] Platelets (Bld) [#/Vol] 230 10*3/uL 130 - 400 K/uL [facility] RBC (Bld) [#/Vol] 5.06 10*6/uL [facility] WBC (Bld) [#/Vol] 9.1 10*3/uL 4.8 - 10.8 K/uL [facility] Collection has been rescheduled by VALDO at 07/02/2022 05:49 Reason: Come back last per kip galdamezfouzia [facility] CBC With Platelet No Differe ntialon 07-02-2022 Erythrocyte distribution width (RBC) [Ratio] 16.3 % Critically high 11.5-14.5 [facility] Comment on above: Order Comment: Daja zamarripa has been rescheduled by VALDO at 07/02/2022 05:49 Reason: Come back last per kip reinoso Performed By: #### C BCND #### [facility] [address] [place] [address] Hematocrit (Bld) [Volume fraction] 40.3 % Normal 37.0-47.0 [facility] Comment on above: Order Comment: Daja zamarripa has been rescheduled by VALDO at 07/02/2022 05:49 Reason: Come back last per kip reinoso Performed By: #### C BCND #### [facility] [address] [place] [address] Hemoglobin (Bld) [Mass/Vol] 12.9 g/dL Normal 12.0-16.0 [facility] Comment on above: Order Comment: Daja zamarripa has been rescheduled by HERAM at 07/02/2022 05:49 Reason: Come back last per rn fouzia Performed By: #### C BCND #### [facility] [address] [place] [address] MCH (RBC) [Entitic mass] 25.5 pg Low 27.0-31.3 [facility] Comment on above: Order Comment: Daja zamarripa has been rescheduled by HERAM at 07/02/2022 05:49 Reason: Come back last per rn fouzia Performed By: #### C BCND #### [facility] [address] [place] [address] MCHC 32.1 % Low 33.0-37.0 [facility] Comment on above: Order Comment: Daja zamarripa has been rescheduled by HERAM at 07/02/2022 05:49 Reason: Come back last per rn fouzia Performed By: #### C BCND #### [facility] [address] [place] [address] MCV (RBC) [Entitic vol] 79.6 fL Normal 79.4-94.8 [facility] Comment on above: Order Comment: Daja zamarripa has been rescheduled by HERAM at 07/02/2022 05:49 Reason: Come back last per rn fouzia Performed By: #### C BCND #### [facility] [address] [place] [address] Platelets (Bld) [#/Vol] 230 10*3/uL Normal 130-400 [facility] Comment on above: Order Comment: Daja zamarripa has been rescheduled by HERAM at 07/02/2022 05:49 Reason: Come back last per rn fouzia Performed By: #### C BCND #### [facility] [address] [place] [address] RBC (Bld) [#/Vol] 5.06 10*6/uL Normal 4.20-5.40 [facility] Comment on above: Order Comment: Daja zamarripa has been rescheduled by HERAM at 07/02/2022 05:49 Reason: Come back last per rn fouzia Performed By: #### C BCND #### [facility] [address] [place] [address] WBC (Bld) [#/Vol] 9.1 10*3/uL Normal 4.8-10.8 [facility] Comment on above: Order Comment: Daja zamarripa has been rescheduled by HERAM at 07/02/2022 05:49 Reason: Come back last per rn fouzia Performed By: #### C BCND #### [facility] [address] [place] [address] US DUP UPPER EXTREMITY LEFT VENOUSon 07-02-2022 [...] Jean Sifuentes MD 07/02/22 Final result Normal [facility] No evidence of DVT. PO LATHROP RADIOLOGY EXAMINATION: VENOUS ULTRASOUND OF THE LEFT [...] normal color flow study and spectral analysis. [facility] RAD[facility] Jean Sifuentes MD - 07/02/2022 [...] spectral analysis. IMPRESSION: No evidence of DVT. [employer] Phone: [employer] Phone: Radiology Study observation (narrative) [employer] Phone: XR KNEE RIGHT (1-2 VIEWS)on 07-01-2022 [...] Jean Sifuentes MD 07/01/22 Final result Normal [facility] Normal postsurgical appearance [facility] RADIOLOGY EXAMINATION: TWO XRAY VIEWS OF [...] are intact. Overlying surgical dee are seen [facility] Jean Sifuentes MD - 07/01/2022 [...] dee are seen IMPRESSION: Normal postsurgical appearance [employer] Work Phone: Radiology Study observation (narrative) [employer] Work Phone: XR KNEE RIGHT (1-2 VIEWS)Ord ered By: Jean Sifuentes on 07-01-2022 [employer] Work Phone: MRSA DNA Probe, Nasalon MRSA, DNA, Nasal Negative NEG [employer] Comment on above: NEGATIVE: MRSA DNA n ot detected by nucleic acid amplification. Results should be used as an adjunct to nosocomial control efforts to identify patients needing enhanced precautions. The test is not intended to identify patients with staphylococcal infections. Results should not be used to guide or monitor treatment for MRSA infections. [employer] [address] [place] [id number] Specimen Description Swab [employer] [facility] MRSA, DNA, Nasalon MRSA, DNA, Nasal Negative Normal NEG [facility] Comment on above: Result Comment: NEGA TIVE: MRSA DNA not detected by nucleic acid amplification. Results should be used as an adjunct to nosocomial control efforts to identify patients needing enhanced precautions. The test is not intended to identify patients with staphylococcal infections. Results should not be used to guide or monitor treatment for MRSA infections. [employer] [address] [place], [place] [id number] [phone] Performed By: #### I MRSA #### [facility] [address] [place] [address] EKG 12 LeadOrdered By: Leigh Ann Nash on 06-25-2022 Atrial Rate 73 BPM [employer] Work Phone: P [place] 33 degrees [facility] [employer] Work Phone: P-R Interval 160 ms [employer] Work Phone: Q-T Interval 406 ms [employer] Work Phone: QRS Duration 102 ms [employer] Work Phone: QTc Calculation (Bazett) 447 ms [employer] Work Phone: R [place] 74 degrees [employer] [facility] Work Phone: T [place] 65 degrees [employer] Work Phone: Ventricular Rate 73 BPM [facility] [employer] Work Phone: [facility] Work Phone: EKG 12 Leadon 06-25-2022 Normal sinus rhythm Incomplete right bundle branch block Confirmed by LEIGH ANN NASH ([id number]) on 06/25/2022 6:49:48 PM Leigh Ann Sumner F, DO - 06/25/2022 Normal sinus rhythm Incomplete right bundle branch block Confirmed by LEIGH ANN NASH ([id number]) on 06/25/2022 6:49:48 PM [employer] Work Phone: Established Visit (Orthopaed ic Surgery)on 06-25-2022 Established Visit (Orthopaedic Surgery) Chief Complaint Pre-op RT TK-Revision 07/01/22 @ [facility] History of Present Illness This patient [...] plans on performing outpatient physical therapy at [facility] in [place]. All of the patient's questions and concerns were answered. This note was prepared using voice recognition software. The details of this note are correct and have been reviewed, and corrected to the best of my ability. Some grammatical areas may persist related to the [employer] software Merrill Alejandro PA-C . Active Problems Problems Acute pain of both knees (338.19,719.46) (M25.561,M25.562) Allergies Medication Penicillins Recorded By: Tarsha Murray; 05/18/2022 8:47:33 AM Signatures Electronically signed by : Merrill Alejandro PA-C; Jun 25 2022 2:21PM EST (Author) Normal Nativo PT Initial Evaluationon 03-0 PT Initial Evaluation [...] today's treatment with some difficulty. Evaluation Code: 12704 PT Eval: Low Complexity, 32 min(s). Resources provided today: education Signatures Electronically signed by : Natali Tyson, PT DPT; Jun 30 2022 10:08AM EST (Author) Normal [employer] APTTon 06-24-2022 aPTT Coag (Bld) [Time] 30.1 s [facility] Comment on above: Effective 02/27/2020: Heparin Therapeutic Range: 64.0 98.0 seconds. [facility] CBC With Platelet and Differ entialon 06-24-2022 Basophils (Bld) [#/Vol] 0.1 10*3/uL Normal 0.0-0.2 [facility] Comment on above: Performed By: #### C BCWD #### [facility] [address] [place] [address] Basophils/100 WBC (Bld) 0.6 % Normal [facility] Comment on above: Performed By: #### C BCWD #### [facility] [address] [place] [address] Eosinophils (Bld) [#/Vol] 0.1 10*3/uL Normal 0.0-0.7 [facility] Comment on above: Performed By: #### C BCWD #### [facility] [address] [place] [address] Eosinophils/100 WBC (Bld) 1.6 % Normal [facility] Comment on above: Performed By: #### C BCWD #### [facility] [address] [place] [address] Erythrocyte distribution width (RBC) [Ratio] 16.4 % Critically high 11.5-14.5 [facility] Comment on above: Performed By: #### C BCWD #### [facility] [address] [place] [address] Hematocrit (Bld) [Volume fraction] 44.4 % Normal 37.0-47.0 [facility] Comment on above: Performed By: #### C BCWD #### [facility] [address] [place] [address] Hemoglobin (Bld) [Mass/Vol] 14.2 g/dL Normal 12.0-16.0 [facility] Comment on above: Performed By: #### C BCWD #### [facility] [address] [place] [address] Lymphocytes (Bld) [#/Vol] 2.3 10*3/uL Normal 1.0-4.8 [facility] Comment on above: Performed By: #### C BCWD #### [facility] [address] [place] [address] Lymphocytes/100 WBC (Bld) 25.8 % Normal [facility] Comment on above: Performed By: #### C BCWD #### [facility] [address] [place] [address] MCH (RBC) [Entitic mass] 25.1 pg Low 27.0-31.3 [facility] Comment on above: Performed By: #### C BCWD #### [facility] [address] [place] [address] MCHC 32.0 % Low 33.0-37.0 [facility] Comment on above: Performed By: #### C BCWD #### [facility] [address] [place] [address] MCV (RBC) [Entitic vol] 78.5 fL Low 79.4-94.8 [facility] Comment on above: Performed By: #### C BCWD #### [facility] [address] [place] [address] Monocytes (Bld) [#/Vol] 0.8 10*3/uL Normal 0.2-0.8 [facility] Comment on above: Performed By: #### C BCWD #### [facility] [address] [place] [address] Monocytes/100 WBC (Bld) 9.4 % Normal [facility] Comment on above: Performed By: #### C BCWD #### [facility] [address] [place] [address] Neutrophils (Bld) [#/Vol] 5.6 10*3/uL Normal 1.4-6.5 [facility] Comment on above: Performed By: #### C BCWD #### [facility] [address] [place] [address] Neutrophils/100 WBC (Bld) 62.6 % Normal [facility] Comment on above: Performed By: #### C BCWD #### [facility] [address] [place] [address] Platelets (Bld) [#/Vol] 281 10*3/uL Normal 130-400 [facility] Comment on above: Performed By: #### C BCWD #### [facility] [address] [place] [address] RBC (Bld) [#/Vol] 5.66 10*6/uL Critically high 4.20-5.40 [facility] Comment on above: Performed By: #### C BCWD #### [facility] [address] [place] [address] WBC (Bld) [#/Vol] 8.9 10*3/uL Normal 4.8-10.8 [facility] Comment on above: Performed By: #### C BCWD #### [facility] [address] [place] [address] CBC with Auto Differentialon 06-24-2022 Basophils (Bld) [#/Vol] 0.1 10*3/uL 0.0 - 0.2 K/uL [facility] Basophils/100 WBC (Bld) 0.6 % [facility] Eosinophils (Bld) [#/Vol] 0.1 10*3/uL 0.0 - 0.7 K/uL [facility] Eosinophils/100 WBC (Bld) 1.6 % [facility] Hematocrit (Bld) [Volume fraction] 44.4 % 37.0 - 47.0 % [facility] Hemoglobin (Bld) [Mass/Vol] 14.2 g/dL 12.0 - 16.0 g/dL [facility] Interpretation and review of laboratory results Abnormal [facility] Lymphocytes (Bld) [#/Vol] 2.3 10*3/uL 1.0 - 4.8 K/uL [facility] Lymphocytes/100 WBC (Bld) 25.8 % [facility] MCH (RBC) [Entitic mass] 25.1 pg Low 27. 0 - 31.3 pg [facility] MCHC (RBC) [Mass/Vol] 32.0 % Low 33.0 - 37.0 % [facility] MCV (RBC) [Entitic vol] 78.5 fL Low 79.4 - 94.8 fL [facility] Monocytes (Bld) [#/Vol] 0.8 10*3/uL 0.2 - 0.8 K/uL [facility] Monocytes/100 WBC (Bld) 9.4 % [facility] Neutrophils Absolute 5.6 K/uL 1.4 - 6 .5 K/uL [facility] Neutrophils/100 WBC (Bld) 62.6 % [facility] Platelet distribution width (Bld) [Ratio] 16.4 % High 11.5 - 14.5 % [facility] Platelets (Bld) [#/Vol] 281 10*3/uL 130 - 400 K/uL [facility] RBC (Bld) [#/Vol] 5.66 10*6/uL High [facility] WBC (Bld) [#/Vol] 8.9 10*3/uL 4.8 - 10.8 K/uL [facility] Comprehensive Metabolic Pane gretel 03-02-2023 Albumin [Mass/Vol] 4.2 g/dL Normal 3.5-4.6 [facility] Comment on above: Performed By: #### U MARIA ELENA #### [facility] [address] [place] [address] ALP [Catalytic activity/Vol] 89 U/L Normal 40-130 [facility] Comment on above: Performed By: #### U MARIA ELENA #### [facility] [address] [place] [address] ALT [Catalytic activity/Vol] 47 U/L Critically high 0-33 [facility] Comment on above: Performed By: #### U MARIA ELENA #### [facility] [address] [place] [address] Anion gap [Moles/Vol] 13 mmol/L Normal 9-15 [facility] Comment on above: Performed By: #### U MARIA ELENA #### [facility] [address] [place] [address] AST [Catalytic activity/Vol] 44 U/L Critically high 0-35 [facility] Comment on above: Performed By: #### U MARIA ELENA #### [facility] [address] [place] [address] Bilirubin [Mass/Vol] 0.5 mg/dL Normal 0.2-0.7 [facility] Comment on above: Performed By: #### U MARIA ELENA #### [facility] [address] [place] [address] Calcium [Mass/Vol] 9.2 mg/dL Normal 8.5-9.9 [facility] Comment on above: Performed By: #### U MARIA ELENA #### [facility] [address] [place] [address] Chloride [Moles/Vol] 100 mmol/L Normal 95-107 [facility] Comment on above: Performed By: #### U MARIA ELENA #### [facility] [address] [place] [address] CO2 [Moles/Vol] 26 mmol/L Normal 20-31 [facility] Comment on above: Performed By: #### U MARIA ELENA #### [facility] [address] [place] [address] Creatinine [Mass/Vol] 0.54 mg/dL Normal 0.50-0.90 [facility] Comment on above: Performed By: #### U MARIA ELENA #### [facility] [address] [place] [address] GFR >60.0 Normal >60 [facility] Comment on above: Result Comment: Pedi [...] Performed By: #### U MARIA ELENA #### [facility] [address] [place] [address] Globulin (S) [Mass/Vol] 3.9 g/dL Critically high 2.3-3.5 [facility] Comment on above: Performed By: #### U MARIA ELENA #### [facility] [address] [place] [address] Glucose [Mass/Vol] 124 mg/dL Critically high 70-99 [facility] Comment on above: Performed By: #### U MARIA ELENA #### [facility] [address] [place] [address] Potassium [Moles/Vol] 4.4 mmol/L Normal 3.4-4.9 [facility] Comment on above: Performed By: #### U MARIA ELENA #### [facility] [address] [place] [address] Protein [Mass/Vol] 8.1 g/dL Critically high 6.3-8.0 [facility] Comment on above: Performed By: #### U MARIA ELENA #### [facility] [address] [place] [address] Sodium [Moles/Vol] 139 mmol/L Normal 135-144 [facility] Comment on above: Performed By: #### U MARIA ELENA #### [facility] [address] [place] [address] Urea nitrogen [Mass/Vol] 14 mg/dL Normal 6-20 [facility] Comment on above: Performed By: #### U MARIA ELENA #### [facility] [address] [place] [address] Albumin [Mass/Vol] 4.2 g/dL 3.5 - 4.6 g/dL [facility] ALP (Bld) [Catalytic activity/Vol] 89 U/L 40 - 130 U/L [facility] ALT [Catalytic activity/Vol] 47 U/L High 0 - 33 U/L [facility] Anion gap [Moles/Vol] 13 mmol/L [facility] AST [Catalytic activity/Vol] 44 U/L High 0 - 35 U/L [facility] Bilirubin [Mass/Vol] 0.5 mg/dL 0.2 - 0 .7 mg/dL [facility] Calcium [Mass/Vol] 9.2 mg/dL 8.5 - 9.9 mg/dL [facility] Chloride [Moles/Vol] 100 mmol/L [facility] CO2 [Moles/Vol] 26 mmol/L [facility] Creatinine [Mass/Vol] 0.54 mg/dL 0.50 - 0.90 mg/dL [facility] GFR/1.73 sq M.predicted MDRD (S/P/Bld) [Vol rate/Area] 60 - PINF [facility] Comment on above: Pediatric calculator link [...] g/dL High 2.3 - 3.5 g/dL [facility] Glucose [Mass/Vol] 124 mg/dL High 70 - 99 mg/dL [facility] Interpretation and review of laboratory results Abnormal [facility] Potassium [Moles/Vol] 4.4 mmol/L [facility] Protein [Mass/Vol] 8.1 g/dL High 6.3 - 8.0 g/dL [facility] Sodium [Moles/Vol] 139 mmol/L [facility] Urea nitrogen (BldV) [Mass/Vol] 14 mg/dL 6 - 20 mg/dL [facility] Laboratory - Coagulationon 0 06-24-2022 INR Coag (Bld) [Relative time] 1.1 {INR} Normal [facility] Work Phone: Laboratory - Hematology and Cell countson 06-24-2022 Basophils/100 WBC (Bld) 0.6 % Normal [facility] Work Phone: Eosinophils/100 WBC (Bld) 1.6 % Normal [facility] Work Phone: Lymphocytes/100 WBC (Bld) 25.8 % [facility] Work Phone: Monocytes/100 WBC (Bld) 9.4 % [facility] Work Phone: Neutrophils/100 WBC (Bld) 62.6 % Normal [facility] Work Phone: [phone] MRSA, DNA, Nasalon 3 Specimen Description Swab Normal [facility] Comment on above: Performed By: #### I MRSA #### [facility] [address] [place] [address] Microscopic Urinalysison Bacteria, UA FEW Abnormal Negative /HPF [facility] Epithelial Cells, UA 0-2 [facility] Hyaline Casts, UA 0-1 [facility] RBC, UA 0-2 [facility] WBC, UA 3-5 [facility] No Panel Informationon 06-24 Interpretation and review of laboratory results Abnormal [facility] TRACE Abnormal Negative [facility] Work Phone: Yellow Normal St[facility] Work Phone: 0-2 Normal 0-5 [facility] Work Phone: 3-5 Normal 0-5 [facility] Work Phone: 0-1 Normal 0-5 [facility] Work Phone: FEW Abnormal Negative [facility] Work Phone: [phone] K/uL Normal 130-400 [facility] Work Phone: 16.4 % above high threshold 11.5-14.5 [facility] Work Phone: [phone] 32.0 % below low threshold 33.0-37.0 [facility] Work Phone: [phone] 0.1 K/uL Normal 0.0-0.2 [facility] Work Phone: [phone] 0.8 K/uL Normal 0.2-0.8 [facility] Work Phone: [phone] 2.3 K/uL Normal 1.0-4.8 [facility] Work Phone: [phone] 5.6 K/uL Normal 1.4-6.5 [facility] Work Phone: [phone] 25.1 pg below low threshold 27.0-31.3 [facility] Work Phone: [phone] 78.5 fL below low threshold 79.4-94.8 [facility] Work Phone: [phone] 44.4 % Normal 37.0-47.0 [facility] Work Phone: 14.2 g/dL Normal 12.0-16.0 [facility] Work Phone: 5.66 {M/uL} above high threshold 4.20-5.40 [facility] Work Phone: [phone] 8.9 K/uL Normal 4.8-10.8 [facility] Work Phone: [phone] 14.8 {sec} Normal 12.3-14.9 [facility] Work Phone: 30.1 {sec} Normal 24.4-36.8 [facility] Work Phone: Comment on above: Effective 02/27/2020: Heparin Therapeutic Range: 64.0 ? 98.0 seconds. 4.2 g/dL Normal 3.5-4.6 [facility] Work Phone: [phone] 3.9 g/dL above high threshold 2.3-3.5 [facility] Work Phone: 44 U/L above high threshold 0-35 [facility] Work Phone: [phone] U/L above high threshold 0-33 [facility] Work Phone: 89 U/L Normal 40-130 [facility] Work Phone: [phone] 0.5 mg/dL Normal 0.2-0.7 [facility] Work Phone: [phone] 8.1 g/dL above high threshold 6.3-8.0 [facility] Work Phone: [phone] 9.2 mg/dL Normal 8.5-9.9 [facility] Work Phone: [phone] >60.0 Normal >60 [facility] Work Phone: [phone] Comment on above: Pediatric calculator [email or web address]://www.kidney.org/professionals/kdoqi/gfr_calculator [...] [facility] Work Phone: 13 {mEq/L} Normal 9-15 [facility] Work Phone: 26 {mEq/L} Normal 20-31 [facility] Work Phone: 100 {mEq/L} Normal 95-107 [facility] Work Phone: 4.4 {mEq/L} Normal 3.4-4.9 [facility] Work Phone: 139 {mEq/L} Normal 135-144 [facility] Work Phone: Negative Normal NEG [facility] Work Phone: Comment on above: NEGATIVE: MRSA DNA n ot detected by nucleic acid amplification. Results should be used as an adjunct to nosocomial control efforts toidentify patients needing enhanced precautions.The test is not intended to identify patients with staphylococcalinfections. Results should not be used to guide or monitor treatmentfor MRSA infections.[facility] [place] [address] Swab Normal [facility] Work Phone: Partial Thromboplastin Timeo n 06-24-2022 aPTT Coag (Bld) [Time] 30.1 s Normal 24.4-36.8 [facility] Comment on above: Result Comment: Effe ctive 02/27/2020: Heparin Therapeutic Range: 64.0 ? 98.0 seconds. Performed By: #### U MARIA ELENA #### [facility] [address] [place] [address] Prothrombin Timeon 3 INR Coag (PPP) [Relative time] 1.1 {INR} Normal [facility] Comment on above: Performed By: #### P T #### [facility] [address] [place] [address] PT Coag (PPP) [Time] 14.8 s Normal 12.3-14.9 [facility] Comment on above: Performed By: #### P T #### [facility] [address] [place] [address] Protime-INRon 06-24-2022 INR Coag (Bld) [Relative time] 1.1 {INR} [facility] PT Coag (PPP) [Time] 14.8 s [facility] Eneedo TYPE AND SCREENon 06-24-2022 ABO/Rh Negative [facility] Comment on above: @06/24/22 14:01 by Elaina FISCHER: BACK TYPE CONFIRMED IN TUBE. LMB Confirmation type ne eds to be drawn. [facility] Type and 3 cell Screen OB Ca ptureon 06-24-2022 Type and 3 cell Screen OB Capture PATIENT: PINKY Prince LOC: [facility]# : [id number] : 1970 SEX: F ORDERED BY: GILMAR COX ORDERED : 06/24/2022 11:08 COLLECTED: 06/24/2022 11:45 ORDER : [id number] RECEIVED : 06/24/2022 11:45 Confirmation type needs to be drawn. --- TEST NAME RESULT UNITS RANGES ABN FL ST [facility]OR[facility] Capture A NEG F @06/24/22 14:01 by RUDY: BACK TYPE CONFIRMED IN TUBE. LMB Antibody 3 Cell Scrn Captu NEG F -- Normal [facility] Comment on above: Performed By: #### T SO3C #### [facility] [address] [place] [address] Urinalysis with Reflex to Cu ltureon 06-24-2022 Bilirubin Urine Negative Negative [facility] Blood, Urine Negative Negative [facility] Clarity, UA Clear Clear [facility] Color, UA Yellow Straw/Buchanan ow [facility] Glucose, Ur Negative Negative mg/dL [facility] Ketones Ql (U) Negative Negative mg/dL [facility] Leukocyte esterase Test strip Ql (U) TRACE Abnormal Negative [facility] Nitrite, Urine Negative Negative [facility] pH, UA 7.0 5.0 - 9.0 [facility] Protein (U) [Mass/Vol] 30 mg/dL Abnormal Negative [facility] Specific [place], UA 1.010 1.005 - 1.030 [facility] Urine Reflex to Culture Not Indicated [facility] Urobilinogen, Urine 0.2 NINF [facility] Urinalysis, reflex to cultur gurinder 06-24-2022 Urine Reflexed to Culture Not Indicated Normal [facility] Comment on above: Performed By: #### U AR #### [facility] [address] [place] [address] Bilirubin Ql (U) Negative Normal Negative [facility] Comment on above: Performed By: #### U AR #### [facility] [address] [place] [address] Clarity (U) Clear Normal Clear [facility] Comment on above: Performed By: #### U AR #### [facility] [address] [place] [address] Color (U) Yellow Normal Straw/Buchanan [facility] Comment on above: Performed By: #### U AR #### [facility] [address] [place] [address] Glucose Ql (U) Negative Normal Negative [facility] Comment on above: Performed By: #### U AR #### [facility] [address] [place] [address] Hemoglobin Ql (U) Negative Normal Negative [facility] Comment on above: Performed By: #### U AR #### [facility] [address] [place] [address] Ketones Ql (U) Negative Normal Negative [facility] Comment on above: Performed By: #### U AR #### [facility] [address] [place] [address] Leukocyte esterase Test strip Ql (U) TRACE Abnormal Negative [facility] Comment on above: Performed By: #### U AR #### [facility] [address] [place] [address] Nitrite Ql (U) Negative Normal Negative [facility] Comment on above: Performed By: #### U AR #### [facility] [address] [place] [address] pH (U) 7.0 [pH] Normal 5.0-9.0 [facility] Comment on above: Performed By: #### U AR #### [facility] [address] [place] [address] Protein Ql (U) 30 mg/dL Abnormal Negative [facility] Comment on above: Performed By: #### U AR #### [facility] [address] [place] [address] Specific gravity (U) [Rel density] 1.010 Normal 1.005-1.03 [facility] Comment on above: Performed By: #### U AR #### [facility] [address] [place] [address] Urobilinogen Qn (U) 0.2 {Reji'U}/dL Normal < 2.0 [facility] Comment on above: Performed By: #### U AR #### [facility] [address] [place] [address] Urine Microscopicon 06-25-19 23 Urine Bacteria FEW Abnormal Negative [facility] Comment on above: Performed By: #### U MARIA ELENA #### [facility] [address] [place] [address] Urine Epithelial Cells Auto 0-2 Normal 0-5 [facility] Comment on above: Performed By: #### U MARIA ELENA #### [facility] [address] [place] [address] Urine Hyaline Casts Auto 0-1 Normal 0-5 [facility] Comment on above: Performed By: #### U MARIA ELENA #### [facility] [address] [place] [address] Urine RBC Auto 0-2 Normal 0-5 [facility] Comment on above: Performed By: #### U MARIA ELENA #### [facility] [address] [place] [address] Urine WBC Auto 3-5 Normal 0-5 [facility] Comment on above: Performed By: #### U MARIA ELENA #### [facility] [address] [place] [address] BILATERAL KNEE COMPLT, 4 OR MORE VIEWSon 05-18-2022 BILATERAL KNEE COMPLT, 4 OR MORE VIEWS Patient Name: GEETA SHELTON STUDY: BILATERAL KNEE; COMPLT, 4 OR MORE VIEWS; ; 05/18/2022 9:07 am INDICATION: pain M25.561: Acute pain of both knees M25.562:. ACCESSION NUMBER(S): [id number] ORDERING CLINICIAN: ACOSTA SCHAFER FINDINGS: Weightbearing four [...] or More Views; Status:Resulted - Preliminary; Done: [id number] 09:07AM Radiologist to Determine Optimal Study : [...] Radiologyon 05-18-2022 XR Knee 4 Views Normal -[facility] Work Phone: Albumin [Mass/volume] in Ser um or PlasmaOrdered By: Elizabeth Alvarado on 05-07-2022 Albumin [Mass/Vol] 3.9 g/dL 3.2-5.[address] [facility] Alkaline phosphatase [Enzyma tic activity/volume] in Serum or PlasmaOrdered By: Elizabeth Alvarado on 05-07-2022 ALP [Catalytic activity/Vol] 83 U/L 32-92 [facility] Aspartate aminotransferase [ Enzymatic activity/volume] in Serum or PlasmaOrdered By: Elizabeth Alvarado on 05-07-2022 AST [Catalytic activity/Vol] 56 U/L 10-42 [facility] Basophils Auto (Bld) [#/Vol] Ordered By: Elizabeth Alvarado on 05-07-2022 Basophils (Bld) [#/Vol] 0.1 10*3/uL 0.0-0.2 [facility] Basophils/100 WBC Auto (Bld) Ordered By: Elizabeth Alvarado on 05-07-2022 Basophils/100 WBC (Bld) 0.7 % . F [facility] Bilirubin.total [Mass/volume ] in Serum or PlasmaOrdered By: Elizabeth Alvarado on 05-07-2022 Bilirubin [Mass/Vol] 0.6 mg/dL 0.3-1.2 [facility] Calcium [Mass/volume] in Ser um or PlasmaOrdered By: Elizabeth Alvarado on 05-07-2022 Calcium [Mass/Vol] 9.1 mg/dL 8.2-10.[address] [facility] Carbon dioxide, total [Moles /volume] in Serum or PlasmaOrdered By: Elizabeth Alvarado on 05-07-2022 CO2 [Moles/Vol] 28.1 mmol/L 22.0-30.0 [facility] Chloride [Moles/volume] in S hugo or PlasmaOrdered By: Elizabeth Alvarado on 05-07-2022 Chloride [Moles/Vol] 100 mmol/L 95-114 [facility] Cholesterol [Mass/volume] in Serum or PlasmaOrdered By: Elizabeth Alvarado on 05-07-2022 Cholesterol [Mass/Vol] 181 mg/dL 140-200 [facility] Comment on above: Chol less than 200 m g/dl low riskChol 201-239 mg/dl borderline riskChol 240 mg/dl and greater high risk Cholesterol in LDL Calc [Mas s/Vol]Ordered By: Elizabeth Alvarado on 05-07-2022 Cholesterol in LDL [Mass/Vol] 102 mg/dL 0-100 [facility] Comment on above: LDL ATP III CLASSIFI CATIONLDL less than 100 mg/dL OptimalLDL 100-129 mg/dL Near or above optimalLDL 130-159 mg/dL Borderline highLDL 160-189 mg/dL HighLDL greater than 189 mg/dL Very high Cholesterol in VLDL Calc [Ma ss/Vol]Ordered By: Elizabeth Alvarado on 05-07-2022 Cholesterol in VLDL [Mass/Vol] 20 mg/dL [facility] Creatinine and Glomerular fi ltration rate.predicted panel (S/P/Bld)Ordered By: Elizabeth Alvarado on 05-07-2022 Creatinine [Mass/Vol] 0.65 mg/dL 0.44-1.03 [facility] Eosinophils Auto (Bld) [#/Vo l]Ordered By: Elizabeth Alvarado on 05-07-2022 Eosinophils (Bld) [#/Vol] 0.1 10*3/uL 0.0-0.45 [facility] Eosinophils/100 WBC Auto (Bl d)Ordered By: Elizabeth Alvarado on 05-07-2022 Eosinophils/100 WBC (Bld) 1.8 % . [facility] Erythrocyte distribution wid th Auto (RBC) [Ratio]Ordered By: Elizabeth Alvarado on 05-07-2022 Erythrocyte distribution width (RBC) [Ratio] 17.8 % 11.9-15.3 [facility] Estimated glomerular filtrat ion rate (GFR) non- AmericanOrdered By: Elizabeth Alvarado on 05-07-2022 GFR/1.73 sq M.predicted among non-blacks MDRD (S/P/Bld) [Vol rate/Area] > 60 mL/Min [facility] Globulin Calc (S) [Mass/Vol] Ordered By: Elizabeth Alvarado on 05-07-2022 Globulin (S) [Mass/Vol] 3.7 g/dL [facility] Glucose [Mass/volume] in Ser um or PlasmaOrdered By: Elizabeth Alvarado on 05-07-2022 Glucose [Mass/Vol] 137 mg/dL 70-[address] [facility] Comment on above: ADA recommended refe rence rangeRandom Glucose Reference Range is dependent on time and content of last meal. Glucose of more than 200 mg/dL in a nonstressed, ambulatory subject supports the diagnosis of Diabetes Mellitus. Hematocrit Auto (Bld) [Volum e fraction]Ordered By: Elizabeth Alvarado on 05-07-2022 Hematocrit (Bld) [Volume fraction] 45.4 % 34.0-46.4 [facility] Hemoglobin [Mass/volume] in BloodOrdered By: Elizabeth Alvarado on 05-07-2022 Hemoglobin (Bld) [Mass/Vol] 14.1 g/dL 11.8-15.4 [facility] Leukocytes [#/volume] correc silverio for nucleated erythrocytes in Blood by Automated counOrdered By: Elizabeth Alvarado on 05-07-2022 WBC corrected for nucl RBC Auto (Bld) [#/Vol] 7.9 10*3/uL 3.8-11.6 [facility] Lymphocytes Auto (Bld) [#/Vo l]Ordered By: Elizabeth Alvarado on 05-07-2022 Lymphocytes (Bld) [#/Vol] 2.4 10*3/uL 1.00-4.8 [facility] Lymphocytes/100 WBC Auto (Bl d)Ordered By: Elizabeth Alvarado on 05-07-2022 Lymphocytes/100 WBC (Bld) 30.9 % . [facility] MCH Auto (RBC) [Entitic mass ]Ordered By: Elizabeth Alvarado on 05-07-2022 MCH (RBC) [Entitic mass] 24.6 pg 24.7-34.3 [facility] MCHC Auto (RBC) [Mass/Vol]Or dered By: Elizabeth Alvarado on 05-07-2022 MCHC (RBC) [Mass/Vol] 31.0 g/dL 32.0-35.0 [facility] MCV Auto (RBC) [Entitic vol] Ordered By: Elizabeth Alvarado on 05-07-2022 MCV (RBC) [Entitic vol] 79.4 fL 80-100 F [facility] Monocytes Auto (Bld) [#/Vol] Ordered By: Elizabeth Alvarado on 05-07-2022 Monocytes (Bld) [#/Vol] 0.7 10*3/uL 0.0-0.8 [facility] Monocytes/100 WBC Auto (Bld) Ordered By: Elizabeth Alvarado on 05-07-2022 Monocytes/100 WBC (Bld) 9.3 % . F [facility] Neutrophils Auto (Bld) [#/Vo l]Ordered By: Elizabeth Alvarado on 05-07-2022 Neutrophils (Bld) [#/Vol] 4.5 10*3/uL 1.8-7.7 [facility] Neutrophils/100 WBC Auto (Bl d)Ordered By: Elizabeth Alvarado on 05-07-2022 Neutrophils/100 WBC (Bld) 57.3 % . [facility] No Panel InformationOrdered By: Elizabeth Alvarado on 05-07-2022 Estimated GFR () > 60 mL/Min [facility] Comment on above: GFR estimated refere nce range: According to KDOQI guidelines, <60 ml/min/1.73m2 is sufficient to diagnose a patient with chronic kidney disease. Pharmacy Creatinine Clearance (Chem N/A [facility] Nucleated erythrocytes [Pres ence] in Blood by Automated countOrdered By: Elizabeth Alvarado on 05-07-2022 Nucleated RBC Auto Ql (Bld) 0.1 /100{WBC} 0-0.5 [facility] Platelet mean volume Auto (B ld) [Entitic vol]Ordered By: Elizabeth Alvarado on 05-07-2022 Platelet mean volume (Bld) [Entitic vol] 9.4 fL 6.3-10.7 [facility] Platelets Auto (Bld) [#/Vol] Ordered By: Elizabeth Alvarado on 05-07-2022 Platelets (Bld) [#/Vol] 242 10*3/uL 150-450 [facility] Potassium [Moles/volume] in Serum or PlasmaOrdered By: Elizabeth Alvarado on 05-07-2022 Potassium [Moles/Vol] 4.3 mmol/L 3.5-5.1 [facility] Protein [Mass/volume] in Ser um or PlasmaOrdered By: Elizabeth Alvarado on 05-07-2022 Protein [Mass/Vol] 7.6 g/dL 6.1-7.[address] [facility] RBC Auto (Bld) [#/Vol]Ordere d By: Elizabeth Alvarado on 05-07-2022 RBC (Bld) [#/Vol] 5.72 10*6/uL 3.60-5.00 [facility] Serum or plasma alanine ulloa otransferase measurement without P-5'-P (enzymatic activiOrdered By: Elizabeth Alvarado on 05-07-2022 ALT No additional P-5'-P [Catalytic activity/Vol] 61 U/L 10-60 [facility] Serum or plasma albumin/glob ulin mass ratioOrdered By: Elizabeth Alvarado on 05-07-2022 Albumin/Globulin [Mass ratio] 1.1 {ratio} [facility] Serum or plasma anion gap de terminationOrdered By: Elizabeth Alvarado on 05-07-2022 Anion gap [Moles/Vol] 11.2 mmol/L 6.0-15.0 [facility] Serum or plasma high density lipoprotein (HDL) cholesterol measurementOrdered By: Elizabeth Alvarado on 05-07-2022 Cholesterol in HDL [Mass/Vol] 58 mg/dL 35-85 [facility] Comment on above: HDL CHOL ATP-III CLA SSIFICATION Cardiovascular RiskHDL > or equal to 60 mg/dL LOWHDL < 40 mg/dL HIGH Serum or plasma total choles terol/high density lipoprotein (HDL) cholesterol mass ratOrdered By: Elizabeth Alvarado on 05-07-2022 Cholesterol.total/Choles terol in HDL [Mass ratio] 3.1 {ratio} <5.0 [facility] Sodium [Moles/volume] in Ser um or PlasmaOrdered By: Elizabeth Alvarado on 05-07-2022 Sodium [Moles/Vol] 135 mmol/L 136-[address] [facility] TSH DL <= 0.005 mIU/L QnOrde red By: Elizabeth Alvarado on 05-07-2022 TSH Qn 4.21 m[IU]/L 0.45-5.33 [facility] Triglyceride [Mass/volume] i n Serum or PlasmaOrdered By: Elizabeth Alvarado on 05-07-2022 Triglyceride [Mass/Vol] 103 mg/dL 35-149 F [facility] Comment on above: TRIG ATP III CLASSIF ICATIONTRIG less than 150 mg/dL NormalTRIG 150-199 mg/dL Borderline highTRIG 200-500 mg/dL High TRIG greater than 500 mg/dL Very highStandard traceable to the Center for Disease Conrtrol and Prevention (CDC) test method. Urea nitrogen [Mass/volume] in Serum or PlasmaOrdered By: Elizabeth Alvarado on 05-07-2022 Urea nitrogen [Mass/Vol] 14 mg/dL 9-23 [facility] WBC Auto (Bld) [#/Vol]Ordere d By: Elizabeth Alvarado on 05-07-2022 WBC (Bld) [#/Vol] 7.9 10*3/uL 3.8-11.[address] [facility] Basophils Auto (Bld) [#/Vol] Ordered By: Tyler Villeda on 04-13-2022 Basophils (Bld) [#/Vol] 0.1 10*3/uL 0.0-0.2 [facility] Basophils/100 WBC Auto (Bld) Ordered By: Tyler Villeda on 04-13-2022 Basophils/100 WBC (Bld) 0.6 % . F [facility] C reactive protein [Mass/vol ume] in Serum or PlasmaOrdered By: Tyler Villeda on 04-13-2022 CRP [Mass/Vol] 2.1 mg/dL 0.0-1.0 [facility] Eosinophils Auto (Bld) [#/Vo l]Ordered By: Tyler Villeda on 04-13-2022 Eosinophils (Bld) [#/Vol] 0.2 10*3/uL 0.0-0.45 [facility] Eosinophils/100 WBC Auto (Bl d)Ordered By: Tyler Villeda on 04-13-2022 Eosinophils/100 WBC (Bld) 2.0 % . [facility] Erythrocyte distribution wid th Auto (RBC) [Ratio]Ordered By: Tyler Villeda on 04-13-2022 Erythrocyte distribution width (RBC) [Ratio] 17.6 % 11.9-15.3 [facility] Erythrocyte sedimentation ra te by Photometric methodOrdered By: Tyler Villeda on 04-13-2022 ESR Photometric method (d) [Velocity] 54 mm/hr 0-29 [facility] Hematocrit Auto (Bld) [Volum e fraction]Ordered By: Tyler Villeda on 04-13-2022 Hematocrit (Bld) [Volume fraction] 44.4 % 34.0-46.4 [facility] Hemoglobin [Mass/volume] in BloodOrdered By: Tyler Villeda on 04-13-2022 Hemoglobin (Bld) [Mass/Vol] 14.3 g/dL 11.8-15.4 [facility] Leukocytes [#/volume] correc silverio for nucleated erythrocytes in Blood by Automated counOrdered By: Tyler Villeda on 04-13-2022 WBC corrected for nucl RBC Auto (Bld) [#/Vol] 8.6 10*3/uL 3.8-11.6 [facility] Lymphocytes Auto (Bld) [#/Vo l]Ordered By: Tyler Villeda on 04-13-2022 Lymphocytes (Bld) [#/Vol] 2.9 10*3/uL 1.00-4.8 [facility] Lymphocytes/100 WBC Auto (Bl d)Ordered By: Tyler Villeda on 04-13-2022 Lymphocytes/100 WBC (Bld) 33.6 % . [facility] MCH Auto (RBC) [Entitic mass ]Ordered By: Tyler Villeda on 04-13-2022 MCH (RBC) [Entitic mass] 24.9 pg 24.7-34.3 [facility] MCHC Auto (RBC) [Mass/Vol]Or dered By: Tyler Villeda on 04-13-2022 MCHC (RBC) [Mass/Vol] 32.2 g/dL 32.0-35.0 [facility] MCV Auto (RBC) [Entitic vol] Ordered By: Tyler Villeda on 04-13-2022 MCV (RBC) [Entitic vol] 77.4 fL 80-100 F [facility] Monocytes Auto (Bld) [#/Vol] Ordered By: Tyler Villeda on 04-13-2022 Monocytes (Bld) [#/Vol] 0.9 10*3/uL 0.0-0.8 [facility] Monocytes/100 WBC Auto (Bld) Ordered By: Tyler Villeda on 04-13-2022 Monocytes/100 WBC (Bld) 10.0 % . F [facility] Neutrophils Auto (Bld) [#/Vo l]Ordered By: Tyler Villeda on 04-13-2022 Neutrophils (Bld) [#/Vol] 4.6 10*3/uL 1.8-7.7 [facility] Neutrophils/100 WBC Auto (Bl d)Ordered By: Tyler Villeda on 04-13-2022 Neutrophils/100 WBC (Bld) 53.8 % . [facility] Nucleated erythrocytes [Pres ence] in Blood by Automated countOrdered By: Tyler Villeda on 04-13-2022 Nucleated RBC Auto Ql (Bld) 0.1 /100{WBC} 0-0.5 [facility] Platelet mean volume Auto (B ld) [Entitic vol]Ordered By: Tyler Villeda on 04-13-2022 Platelet mean volume (Bld) [Entitic vol] 9.1 fL 6.3-10.7 [facility] Platelets Auto (Bld) [#/Vol] Ordered By: Tyler Villeda on 04-13-2022 Platelets (Bld) [#/Vol] 296 10*3/uL 150-450 [facility] RBC Auto (Bld) [#/Vol]Ordere d By: Tyler Villeda on 04-13-2022 RBC (Bld) [#/Vol] 5.73 10*6/uL 3.60-5.00 [facility] WBC Auto (Bld) [#/Vol]Ordere d By: Tyler Villeda on 04-13-2022 WBC (Bld) [#/Vol] 8.6 10*3/uL 3.8-11.[address] [facility] Serum or plasma follitropin measurement (units/volume)Ordered By: Elizabeth Alvarado on 12-03-2021 Follitropin Qn 18.3 m[IU]/mL [facility] Comment on above: FEMALE NORMALS (JUDIE ENOPAUSE) MID-FOLLICULAR PHASE: 3.9-8.8 mIU/mL MID-CYCLE PEAK: 4.5-22.5 mIU/mL MID-LUTEAL PHASE: 1.8-5.1 mIU/mL FEMALE NORMALS (POSTMENOPAUSE): 16.7-113.6 mIU/mL MALE NORMALS: 1.3-19.3 mIU/mL TSH DL <= 0.005 mIU/L QnOrde red By: Elizabeth Alvarado on 12-03-2021 TSH Qn 4.23 m[IU]/L 0.45-5.33 [facility] Total estrogen measurementOr dered By: Elizabeth Alvarado on 12-03-2021 Estrogen [Mass/Vol] 83 pg/mL . [facility] Comment on above: Prepubertal < 40 Female Cycle: 1-10 Days 16 - 328 11-20 Days 34 - 501 21-30 Days 48 - 350 Post-Menopausal 40 - 244 Performed at: - Lab[address] [id number] [employer] Register Repairer: Virgie Isaac MD, Phone: [phone] Coding Summary.on 01-26-2019 Coding Summary. CODING DATE: [address] [facility] STATUS: Home (Routine DC) PAYOR: Medicare APC DESCRIPTION 5116 Level 3 Musculoskeletal Procedures ADMIT DX: REASON FOR VISIT DX: M76.61 Achilles tendinitis, right leg FINAL DX: PRINCIPAL: M76.61 Achilles tendinitis, right leg SECONDARY: M24.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, right ankle I10 Essential (primary) hypertension J45.909 Unspecified asthma, uncomplicated K21.9 Gastro-esophageal reflux disease without esophagitis Z79.899 Other ferry terminal agent (current) drug therapy PYMT PROC APC STAT DESCRIPTION DOCTOR NAME DATE 25449 511 J1 Tenotomy, percutaneous, Thuan Travis DPM 01/24/2019 Achilles tendon (separate procedure); general anesthesia RT Right side (used to identify procedures performed on the right side of the body) 63113 Anesthesia for Shahab Almanzar Jr., DO 01/24/2019 [...] Revised Date Saved: 01/26/2019 11:32 am Normal [facility] Inpatient Patient Summaryon 01-24-2019 Inpatient Patient Summary [facility] Clinical Discharge Instructions PERSON INFORMATION Name: GEETA SHELTON [facility] Admitting Physician: Thuan Travis DPM Attending Physician: Thuan Travis DPM PCP: Nichole Caballero Discharge Diagnosis: Comment: PATIENT EDUCATION INFORMATION Instructions: Post Op Patient Instructions - FT (Custom); Foot Cryocuff Patient Instructions - FT (Custom); Thaddeus - Post Operative Instructions (Revised 12/20/13) (Custom) ([id number]) Medication Leaflets: Follow up: MEDICATION LIST Comment: Normal [facility] [place] 01-24-2019 Anion gap [Moles/Vol] 14 mmol/L Normal 6-16 [facility] Comment on above: Performed By: #### 2 [id number], [id number] #### [facility] [address] [place] [address] Chloride [Moles/Vol] 107 mmol/L Normal 101-111 [facility] Comment on above: Performed By: #### 2 784354, 5735753, 4315531, 33018018, 4235088, 1040022 #### [facility] [address] [place] [address] CO2 [Moles/Vol] 23 mmol/L Normal 21-31 [facility] Comment on above: Performed By: #### 2 726017, 6098403, 0054882, 38859735, 5443881, 3748554 #### [facility] [address] [place] [address] Potassium [Moles/Vol] 4.9 mmol/L Normal 3.5-5.3 [facility] Comment on above: Performed By: #### 2 574604, 8253673, 0330293, 10589565, 5329711, 9296984 #### [facility] [address] [place] [address] Sodium [Moles/Vol] 139 mmol/L Normal 135-145 [facility] Comment on above: Performed By: #### 2 860865, 8397346, 8699285, 42625182, 2952888, 8152021 #### [facility] [address] [place] [address] Main OR Intraoperative Recor don 01-24-2019 Main OR Intraoperative Record IntraOp Document Type FT Summary Primary Physician: Thuan Travis DPM Finalized Date/Time: 01/24/19 11:33:24 Pt. Name: GEETA SHELTON/Sex: 1970 Female Med Rec #: [id number] Physician: Thuan Travis DPM Financial #: [id number] Pt. Type: A Room/Bed: [facility] Admit/Disch: 01/24/19 07:58:48 - Institution: [...] Cheryl Role Performed Anesthesiologist Surgeon - Primary SECURITY MANAGEMENT SPECIALIST Bilingual Hr Generalist Time In 01/24/19 08:48:00 01/24/19 09:00:00 01/24/19 [...] Jani AGUILAR, Kallie Yuen RN, Zuly Duarte ELECTRONICS MAINTENANCE TECHNICIAN, Prashant Panda Role Performed Electroplating Technician - Primary Electroplating Technician - Other Scrub - Primary Time In [...] RN, Emily A, Schmitz RN, Gerald Veliz ELECTRONICS MAINTENANCE TECHNICIAN, Prashant M Time Out Complete 01/24/19 [...] AGUILAR, CNOR, Alpa AGUILAR, Zuly Luna, Gerald ELECTRONICS MAINTENANCE TECHNICIAN, R, Gerald ELECTRONICS MAINTENANCE TECHNICIAN, Prashant Panda Outcomes Met? Yes Yes Last [...] to transfer/transport General Comments: REPORT GIVEN TO LACING PRESSERRN. Cy PRIDE RN Dressing/Packing FT Pre-Care Text: [...] safely administered during the perioperative period For [facility] please see scanned medication reconcilliation form for medications used at the field during the procedure. Temperature Control Entry 1 Temperature Control BLANKET MISTRAL AIR Quantity 1 Aid TORSO [[id number]][F] Fluid/Haskell Unit Mistral warming system Setting HIGH/43 Body Site Upper anterior torso Last Modified By: Kallie Gunter RN 01/24/19 08:46:43 Case Comments Finalized By: Maye Silverio CST Document Signatures Signed By: Kallie Gunter RN 01/24/19 09:26 Maye Silverio CST 01/24/19 11:33 Normal [facility] Main OR PACU I Recordon Main OR PACU I Record PACU Phase I Docum ent Type FT Summary Primary Physician: Thuan Travis DPM Finalized Date/Time: 01/24/19 10:08:45 Pt. Name: GEETA SHELTON/Sex: 1970 Female Med Rec #: [id number] Physician: Thuan Travis DPM Financial #: [id number] Pt. Type: A Room/Bed: Admit/Disch: 01/24/19 07:58:48 [...] By: Swathi Carr RN 01/24/19 10:08 Normal [facility] Main OR PACU II Recordon Main OR PACU II Record PACU Phase II Doc ument Type FT Summary Primary Physician: Thuan Travis DPM Finalized Date/Time: 01/24/19 13:09:21 Pt. Name: GEETA SHELTON/Sex: 1970 Female Med Rec #: [id number] Physician: Thuan Travis DPM Financial #: [id number] Pt. Type: A Room/Bed: [facility] Admit/Disch: 01/24/19 07:58:48 - Institution: [...] Signed By: Keeley Putnam LPN 01/24/19 13:09 [facility] Main OR Preoperative Recordo n 01-24-2019 Main OR Preoperative Record PreOp Document Type FT Summary Primary Physician: Thuan Travis DPM Number: [id number] Finalized Date/Time: 01/24/19 09:12:07 Pt. Name: GEETA SHELTON Austyn/Sex: 1970 Female Med Rec #: [id number] Physician: Thuan Travis DPM Financial #: [id number] Pt. Type: A Room/Bed: [place] [address] Admit/Disch: 01/24/19 07:58:48 - Institution: Case Times [...] By: Kallie Gunter RN 01/24/19 09:12 Normal [facility] Operative Reporton 10--201 9 Operative Report [...] visit. Thuan Travis D.P.M. aek Dictated: 01/24/2019 #[id number] Typed: 01/24/2019 #[id number] cc: Thuan Travis D.P.M. [facility] Comment on above: Result Comment: Elec tronically Signed By: Thuan Travis DPM\.br\Date and Time Signed: 01/24/19 10:24 EDT Patient Education - Texton 1 Patient Education - Text (Inserted Image . Unable to display) [place], [place] Thuan Travis DPM, FACFAS POST OPERATIVE [...] feel free to call the doctor at: [phone] or [phone] Travis paged. ___ Patient signature Date ___ Dr. Anand Sauer DPM, FACFAS Date Revised: 06-02 [facility] Progress Note-Physicianon Progress Note-Physician Patient: GEETA SHELTON [...] Complications: None. Anesthesia type: General. [facility] Comment on above: Result Comment: Elec tronically Signed By: Thuan Travis DPM\.br\Date and Time Signed: 01/24/19 09:27 EDT Coding Summary.on 01-12-2019 Coding Summary. CODING DATE: [address] [facility] STATUS: Home (Routine DC) PAYOR: Medicare [...] CphT Date Saved: 01/12/2019 11:10 am Normal [facility] BUNon 01-11-2019 Urea nitrogen [Mass/Vol] 29 mg/dL High 5-21 [facility] Comment on above: Performed By: #### 2 930080, 3017221, 9861074, 81692159, 5350145, 4574161 #### [facility] [address] [place] [address] CBC w/Indiceson 01-11-2019 Erythrocyte distribution width (RBC) [Ratio] 16.1 % High 10.9-14.2 [facility] Comment on above: Performed By: #### 1 3803329, 5127847, 5912411, 5392728, 0083331 #### [facility] [address] [place] [address] Hematocrit (Bld) [Volume fraction] 42.1 % Normal 34.0-46.0 [facility] Comment on above: Performed By: #### 1 2215352, 5895094, 3316758, 0933475, 9125894 #### [facility] [address] [place] [address] Hemoglobin (Bld) [Mass/Vol] 13.8 g/dL Normal 12.0-16.0 [facility] Comment on above: Performed By: #### 1 4015822, 7100219, 5286296, 4998781, 4646195 #### [facility] [address] [place] [address] MCH (RBC) [Entitic mass] 25.8 pg Low 27.0-34.0 [facility] Comment on above: Performed By: #### 1 2057029, 0496003, 9245511, 6730256, 2513230 #### [facility] [address] [place] [address] MCHC (RBC) [Mass/Vol] 32.8 g/dL Low 33.3-35.7 [facility] Comment on above: Performed By: #### 1 3451439, 2687812, 3487118, 8154589, 4002955 #### [facility] [address] [place] [address] MCV (RBC) [Entitic vol] 78.5 fL Low 80.0-100.0 [facility] Comment on above: Performed By: #### 1 8652240, 7594025, 5156105, 1817210, 3861216 #### [facility] [address] [place] [address] Platelet mean volume (Bld) [Entitic vol] 9.9 fL Normal 6.4-10.8 [facility] Comment on above: Performed By: #### 1 9462611, 8738005, 2868135, 9297921, 0688203 #### [facility] [address] [place] [address] Platelets (Bld) [#/Vol] 283.0 E9/L Normal 150. 0-500. 0 [facility] Comment on above: Performed By: #### 1 9966635, 8873986, 1426069, 5704706, 3336230 #### [facility] [address] [place] [address] RBC (Bld) [#/Vol] 5.4 E12/L Normal 4.3-5.9 [facility] Comment on above: Performed By: #### 1 1401851, 3483299, 5159548, 3182685, 6857618 #### [facility] [address] [place] [address] WBC corrected for nucl RBC Auto (Bld) [#/Vol] 8.6 E9/L Normal 4.0-11.0 [facility] Comment on above: Performed By: #### 1 5465140, 2902827, 3982882, 7789184, 9802983 #### [facility] [address] [place] [address] Creatinineon 01-11-2019 Creatinine [Mass/Vol] 1.0 mg/dL Normal 0.5-1.3 [facility] Comment on above: Performed By: #### 2 356914, 7341551, 2045526, 50867530, 3149956, 4973664 #### [facility] [address] [place] [address] Glucoseon 01-11-2019 Glucose [Mass/Vol] 95 mg/dL Normal 55-199 [facility] Comment on above: Performed By: #### 1 2077756, 5121761, 0307847, 4243588, 0572835 #### [facility] [address] [place] [address] eGFRon 01-11-2019 GFR/1.73 sq M predicted among blacks MDRD (S/P/Bld) [Vol rate/Area] mL/min/{1.73_m2} Normal >=59 [facility] Comment on above: Order Comment: Order added by Discern Expert. Result Comment: eGFR is race adjusted. AA=. Performed By: #### 2 698415, 5314271, 6421760, 03150530, 3470492, 6840709 #### [facility] [address] [place] [address] GFR/1.73 sq M predicted among non-blacks MDRD (S/P/Bld) [Vol rate/Area] 59 mL/min/1.73 m2 Normal >=59 [facility] Comment on above: Order Comment: Order added by Discern Expert. Result Comment: Painter Chassis stefanie kidney disease could be indicated at eGFR's of less than 60 mL/min/1.73m2. Kidney failure is indicated at less than 15 mL/min/1.73m2. Performed By: #### 2 466178, 5924546, 4675356, 35826718, 6179163, 6973900 #### [facility] [address] [place] [address] Coding Summary.on 12-15-2018 Coding Summary. CODING DATE: [address] [facility] STATUS: Home (Routine DC) PAYOR: Medicare [...] CphT Date Saved: 12/15/2018 01:36 pm Normal [facility] BUNon 12-14-2018 Urea nitrogen [Mass/Vol] 19 mg/dL Normal 5-21 [facility] Comment on above: Performed By: #### 2 407292, 1985099, 0965814, 31958191, 0628195, 2135174 #### [facility] [address] [place] [address] CBC w/Indiceson 12-14-2018 Erythrocyte distribution width (RBC) [Ratio] 17.1 % High 10.9-14.2 [facility] Comment on above: Performed By: #### 2 657343, 0484750, 3566024, 15929680, 0203080, 4127894 #### [facility] [address] [place] [address] Hematocrit (Bld) [Volume fraction] 41.5 % Normal 34.0-46.0 [facility] Comment on above: Performed By: #### 2 368911, 8306554, 7675157, 96423252, 1048134, 3170419 #### [facility] [address] [place] [address] Hemoglobin (Bld) [Mass/Vol] 13.2 g/dL Normal 12.0-16.0 [facility] Comment on above: Performed By: #### 2 755281, 5835116, 0942619, 87538455, 5221702, 9651930 #### [facility] [address] [place] [address] MCH (RBC) [Entitic mass] 25.0 pg Low 27.0-34.0 [facility] Comment on above: Performed By: #### 2 775054, 9680722, 4672633, 48707868, 2080374, 2815496 #### [facility] [address] [place] [address] MCHC (RBC) [Mass/Vol] 31.7 g/dL Low 33.3-35.7 [facility] Comment on above: Performed By: #### 2 864014, 4669563, 1611222, 63575821, 3649442, 5218661 #### [facility] [address] [place] [address] MCV (RBC) [Entitic vol] 78.7 fL Low 80.0-100.0 F [facility] Comment on above: Performed By: #### 2 838882, 9886146, 5575737, 29006928, 9381506, 6589918 #### [facility] [address] [place] [address] Platelet mean volume (Bld) [Entitic vol] 9.4 fL Normal 6.4-10.8 [facility] Comment on above: Performed By: #### 2 482408, 8507704, 5097034, 57440037, 5955325, 4267941 #### [facility] [address] [place] [address] Platelets (Bld) [#/Vol] 268.0 E9/L Normal 150. 0-500. 0 [facility] Comment on above: Performed By: #### 2 434207, 9936820, 6146805, 61527594, 7759364, 3531959 #### [facility] [address] [place] [address] RBC (Bld) [#/Vol] 5.3 E12/L Normal 4.3-5.9 [facility] Comment on above: Performed By: #### 2 451598, 0672894, 8207551, 63338114, 2619701, 4954262 #### [facility] [address] [place] [address] WBC corrected for nucl RBC Auto (Bld) [#/Vol] 10.6 E9/L Normal 4.0-11.0 [facility] Comment on above: Performed By: #### 2 421410, 1167502, 9275004, 85831346, 7493266, 3298931 #### [facility] [address] [place] [address] Creatinineon 12-14-2018 Creatinine [Mass/Vol] 0.7 mg/dL Normal 0.5-1.3 [facility] Comment on above: Performed By: #### 2 915166, 6010602, 0057556, 15152173, 9328401, 5589947 #### [facility] [address] [place] [address] Glucoseon 12-14-2018 Glucose [Mass/Vol] 138 mg/dL Normal 55-199 [facility] Comment on above: Performed By: #### 2 399541, 3522314, 1016114, 45261180, 8715306, 4341841 #### [facility] [address] [place] [address] Lyteson 12-14-2018 Anion gap [Moles/Vol] 17 mmol/L High 6-16 [facility] Comment on above: Performed By: #### 2 270042, 7627192, 8473435, 35702329, 8162232, 8030328 #### [facility] [address] [place] [address] Chloride [Moles/Vol] 95 mmol/L Low 101-111 [facility] Comment on above: Performed By: #### 2 793995, 4138540, 9296193, 12133031, 1733789, 2773247 #### [facility] [address] [place] [address] CO2 [Moles/Vol] 26 mmol/L Normal 21-31 [facility] Comment on above: Performed By: #### 2 600833, 0580927, 4319919, 02510472, 2680190, 9545782 #### [facility] [address] [place] [address] Potassium [Moles/Vol] 3.9 mmol/L Normal 3.5-5.3 [facility] Comment on above: Performed By: #### 2 737171, 2531507, 6970170, 93933330, 5051200, 9556859 #### [facility] [address] [place] [address] Sodium [Moles/Vol] 134 mmol/L Low 135-145 [facility] Comment on above: Performed By: #### 2 039800, 5006267, 5939558, 43379694, 6946914, 4037255 #### [facility] [address] [place] [address] XR Chest 2 Viewson 9 XR Chest [...] MD Transcribed by: MAGEN Technologist: KRISTYN Thornton [facility] eGFRon 12-14-2018 GFR/1.73 sq M predicted among blacks MDRD (S/P/Bld) [Vol rate/Area] mL/min/{1.73_m2} Normal >=59 [facility] Comment on above: Order Comment: Order added by Discern Expert. Result Comment: eGFR is race adjusted. AA=. Performed By: #### 2 461709, 0919470, 0155098, 36757163, 4391839, 5849397 #### [facility] [address] [place] [address] GFR/1.73 sq M predicted among non-blacks MDRD (S/P/Bld) [Vol rate/Area] mL/min/{1.73_m2} Normal >=59 [facility] Comment on above: Order Comment: Order added by Discern Expert. Result Comment: Painter Chassis stefanie kidney disease could be indicated at eGFR's of less than 60 mL/min/1.73m2. Kidney failure is indicated at less than 15 mL/min/1.73m2. Performed By: #### 2 650585, 5406334, 8376998, 08671049, 6865113, 7370677 #### [facility] [address] [place] [address] Vital Signs Date Time Vital Sign Value Performing Clinician Facility 09-30-2023 09:36-0400 Body height 165.1 cm PHYSICIAN [facility] 09-30-2023 09:36-0400 Body mass index (BMI) [Ratio] 46.2 kg/m2 PHYSICIAN [facility] 09-30-2023 09:36-0400 Body temperature 97.6 [degF] PHYSICIAN NO [facility] 09-30-2023 09:36-0400 Body weight 126.09 kg PHYSICIAN NO [facility] 09-30-2023 09:36-0400 Diastolic blood pressure 85 mm[Hg] PHYSICIAN [facility] 09-30-2023 09:36-0400 Heart rate 87 /min PHYSICIAN NO [facility] 09-30-2023 09:36-0400 Respiratory rate 20 /min PHYSICIAN NO [facility] 09-30-2023 09:36-0400 SaO2% (BldA) [Mass fraction] 98 % PHYSICIAN [facility] 09-30-2023 09:36-0400 Systolic blood pressure 139 mm[Hg] PHYSICIAN [facility] 03-02-2023 10:45-0500 Body height 165.1 cm Tyler Jean Other [facility] Other 03-02-2023 10:45-0500 Body mass index (BMI) [Ratio] 44.76 kg/m2 Tyler Jean Other [facility] Other 03-02-2023 10:45-0500 Body temperature 96.7 [degF] Tyler Mcnamaratyler Other [facility] Other 03-02-2023 10:45-0500 Body weight 122.02 kg Tyler Jean Other [facility] Other 03-02-2023 10:45-0500 Diastolic blood pressure 82 mm[Hg] Tyler Ted Other [facility] Other 03-02-2023 10:45-0500 Respiratory rate 18 /min Tyler Mcnamaratyler Other [facility] Other 03-02-2023 10:45-0500 SaO2% (BldA) [Mass fraction] 96 % Tyler Mcnamaratyler Other [facility] Other 03-02-2023 10:45-0500 Systolic blood pressure 136 mm[Hg] Tyler Mcnamaratyler Other [facility] Other 09-21-2022 09:11-0400 Body weight 128.72 kg SUPERVISOR PRE WAVE Elizabethshaun Alvarado Work Phone: [facility] 09-21-2022 09:11-0400 Diastolic blood pressure 91 mm[Hg] SUPERVISOR PRE WAVE Elizabeth Myerholtz Work Phone: [facility] 09-21-2022 09:11-0400 Heart rate 88 /min SUPERVISOR PRE WAVE Elizabeth Myerholtz Work Phone: [facility] 09-21-2022 09:11-0400 Respiratory rate 20 /min SUPERVISOR PRE WAVE Elizabeth Myerholtz Work Phone: [facility] 09-21-2022 09:11-0400 SaO2% (BldA) [Mass fraction] 96 % SUPERVISOR PRE WAVE Elizabeth Myerholtz Work Phone: [facility] 09-21-2022 09:11-0400 Systolic blood pressure 145 mm[Hg] RHEA Alvarado Work Phone: [facility] 08-16-2022 13:57-0400 Body temperature 98 [degF] RHEA Alvarado Work Phone: [facility] 08-16-2022 13:42-0400 Body height 165.1 cm RHEA Alvarado Work Phone: [facility] 07-03-2022 08:14-0500 Body temperature 97.9 [degF] Acosta Schafer MD Work Phone: [employer] 07-03-2022 08:14-0500 Diastolic blood pressure 70 mm[Hg] Acosta Schafer MD Work Phone: [employer] 07-03-2022 08:14-0500 Heart rate 83 /min Acosta Schafer MD Work Phone: [facility] 07-03-2022 08:14-0500 Respiratory rate 18 /min Acosta Schafer MD Work Phone: [employer] 07-03-2022 08:14-0500 SaO2% (BldA) [Mass fraction] 98 % Acosta Schafer MD Work Phone: [employer] 07-03-2022 08:14-0500 Systolic blood pressure 129 mm[Hg] Acosta Schafer MD Work Phone: [employer] [employer] [facility] 07-02-2022 09:45-0500 Body mass index (BMI) [Ratio] 50.66 kg/m2 Acosta Schafer MD Work Phone: [facility] [facility] 07-02-2022 09:45-0500 Body weight 129.73 kg Acosta Schafer MD Work Phone: [employer] 06-24-2022 11:20-0500 Body height 160 cm Mloz Rn [employer] 06-24-2022 11:20-0500 Body mass index (BMI) [Ratio] 50.79 kg/m2 [facility] 06-24-2022 11:20-0500 Body temperature 97.9 [degF] [facility] 06-24-2022 11:20-0500 Body weight 130.05 kg [facility] 06-24-2022 11:20-0500 Diastolic blood pressure 87 mm[Hg] [facility]loz [facility] 06-24-2022 11:20-0500 Heart rate 73 /min Mloz Rn [facility] [employer] 06-24-2022 11:20-0500 Respiratory rate 16 /min [facility] 06-24-2022 11:20-0500 SaO2% (BldA) [Mass fraction] 98 % Mloz Rn [facility] 06-24-2022 11:20-0500 Systolic blood pressure 142 mm[Hg] Mloz R[facility] 05-18-2022 08:46-0500 Body height 165.1 cm Acosta Schafer MD Work Phone: [facility] Work Phone: 05-18-2022 08:46-0500 Body mass index (BMI) [Ratio] 45.93 kg/m2 Acosta Schafer MD Work Phone: [facility] Work Phone: 05-18-2022 08:46-0500 Body surface area Derived from formula 2.27 m2 Acosta Schafer MD Work Phone: [facility] Work Phone: 05-18-2022 08:46-0500 Body weight 125.19 kg Acosta Schafer MD Work Phone: [facility] Work Phone: Encounters Encounter Date Encounter Type Care Provider Facility Start: 09-30-2023 End: 09-30-2023 ambulatory PHYSICIAN [facility] Work Phone: Start: 09-30-2023 End: 09-30-2023 Patient encounter procedure PHYSICIAN NO [facility] Ambulatory Work Phone: Start: 09-30-2023 Registered Recurring PHYSICIAN NO [facility] Acute Work Phone: Start: 09-30-2023 ambulatory Elizabeth Alvarado F acility:[facility] Start: 09-07-2023 End: 09-07-2023 Patient encounter procedure PHYSICIAN NO [facility] [place] Work Phone: Start: 08-24-2023 End: 08-24-2023 ambulatory RHEA Alvarado Work Phone: [facility] Work Phone: Start: 08-24-2023 End: 08-24-2023 Patient encounter procedure SUPERVISOR PRE WAVENohelia Alvarado Work Phone: [facility] Start: 08-24-2023 End: 08-24-2023 Departed Referred RHEA Alvarado Work Phone: [facility] Start: 05-10-2023 End: 05-10-2023 ambulatory SUPERVISOR PRE WAVENohelia Alvarado Work Phone: [facility] Work Phone: Start: 05-10-2023 End: 05-10-2023 Patient encounter procedure SUPERVISOR PRE WAVE Elizabeth Alvarado Work Phone: [facility] Work Phone: Start: 03-02-2023 End: 03-02-2023 ambulatory Tyler Jean Other [facility] Other Start: 03-02-2023 Office outpatient vi sit 25 minutes Tyler Jean [facility] V[facility] Start: 02-14-2023 End: 02-14-2023 ambulatory SUPERVISOR PRE WAVENohelia Alvarado Work Phone: [facility] Work Phone: Start: 02-14-2023 End: 02-14-2023 Patient encounter procedure RHEA Alvarado Work Phone: [facility] [place] Work Phone: Start: 01-26-2023 [facility] visit new patient Sindy rubio [facility] Vascular Surgery Start: 01-26-2023 End: 01-26-2023 ambulatory SUPERVISOR PRE WAVENohelia Alvarado Work Phone: [facility] Other Start: 01-26-2023 End: 01-26-2023 Patient encounter procedure RHEA Alvarado Work Phone: [facility]XRay [facility] [place] Work Phone: Start: 12-29-2022 Patient encounter procedure Acosta Schafer MD Work Phone: [facility] Work Phone: Start: 12-29-2022 ambulatory Provider Pending Facili ty:[id number] Start: 11-25-2022 End: 11-25-2022 Patient encounter procedure RHEA Alvarado Work Phone: [facility] Work Phone: Start: 09-22-2022 Patient encounter procedure Acosta Schafer MD Work Phone: [facility] Work Phone: Start: 09-22-2022 ambulatory Provider Pending Facili ty:[id number] Start: 09-21-2022 End: 09-21-2022 ambulatory SUPERVISOR PRE WAVE Elizabeth Alvarado Work Phone: [facility] Work Phone: Start: 09-21-2022 End: 09-21-2022 Registered Recurring RHEA Johnson Christiano Work Phone: [facility] Work Phone: Start: 08-11-[address] Acosta Alva yaneli Lima Facility:[id number] Start: 08-04-2022 End: 08-04-2022 Discharged Recurring RHEA Fraserjackie Alvarado Work Phone: [facility]-Physical Therapy [address] Start: 07-23-2022 End: 07-23-2022 ambulatory RHEA Hurley Christiano Work Phone: [facility] Work Phone: Start: 07-23-2022 End: 07-23-2022 Patient encounter procedure RHEA Fraserjackie Alvarado Work Phone: [facility]Lab Main [place] Work Phone: Start: 07-16-2022 Telephone encounter Acosta Crews MD Work Phone: [facility] Work Phone: Start: 07-14-2022 Patient encounter procedure Acosta Schafer MD Work Phone: [facility] Work Phone: Start: 07-14-[address] Acosta Schafer Facility:[id number] Start: 07-07-2022 AUDIT Acosta sow MD Work Phone: [facility] Work Phone: Start: 07-01-2022 ambulatory Provider Pending Facili ty:[id number] Start: 07-01-2022 End: 07-03-2022 Evaluation and management of inpatient ACOSTA SCHAFER [facility] Start: 07-01-2022 SURGNONUH, Provider: Acosta Schafer, [...] procedure Natali Tyson PT, DPT Work Phone: [facility] [facility] Work Phone: Start: 06-25-2022 ambulatory Mr. Merrill martinez [facility] Facility:[id number] Start: 06-25-2022 Encounter for other preprocedural examination Mr. Merrill Hernandez [facility] Start: 06-24-2022 End: 06-29-2022 ambulatory ACOSTA SCHAFER [facility] Start: 06-24-2022 End: 06-28-2022 Subsequent hospital visit by physician Juan Manzano Rm 2 [facility] Start: 05-18-2022 Patient encounter procedure Acosta Schafer MD Work Phone: [facility] Work Phone: Start: 05-18-[address] Acosta Schafer Facility:[id number] Start: 05-07-2022 End: 05-07-2022 Patient encounter procedure RHEA Alvarado Work Phone: [facility]Electrodiagn[facility] Work Phone: Start: 04-13-2022 End: 04-13-2022 ambulatory RHEA Alvarado Work Phone: [facility] Work Phone: Start: 04-13-2022 End: 04-13-2022 Patient encounter procedure RHEA Alvarado Work Phone: [facility]-Lab Main [place] Start: 12-17-2021 End: 12-17-2021 Patient encounter procedure RHEA Morinsaige Work Phone: [facility]-Nuc Med [facility] [place] Start: 12-07-2021 End: 12-07-2021 Patient encounter procedure RHEA Morinbijupaula Work Phone: [facility]-Ultrasound [facility] [place] Start: 12-03-2021 End: 12-03-2021 Departed Referred RHEA Johnson Christiano Work Phone: [facility] Procedures Date Procedure [...] TO MG FOR LOW K Arya Coronado SUPERVISOR PRE WAVE - COAL CUTTING MACHINE OPERATOR Work Phone: Start: 07-03-2022 Blood count complete automated Arya Coronado SUPERVISOR PRE WAVE - COAL CUTTING MACHINE OPERATOR Work Phone: Start: 07-02-2022 Dup-scan xtr veins unilateral/limited study Carlos A Hou DO Work Phone: Start: 07-02-2022 BASIC METABOLIC PANE L W/ REFLEX TO MG FOR LOW K Arya Coronado SUPERVISOR PRE WAVE - COAL CUTTING MACHINE OPERATOR Work Phone: Start: 07-02-2022 Blood count complete automated Arya Coronado SUPERVISOR PRE WAVE - COAL CUTTING MACHINE OPERATOR Work Phone: Start: 07-01-2022 Radiologic examinati on knee 1/2 views Arya Coronado SUPERVISOR PRE WAVE - COAL CUTTING MACHINE OPERATOR Work Phone: Start: 07-01-2022 End: 07-01-2022 Revj [...] Start: 12-17-2021 Radionuclide three-p hase bone study SUPERVISOR PRE WAVENohelia Alvarado Work Phone: Start: 12-07-2021 US scan of thyroid RHEA Alvarado Work Phone: Start: 02-01-2019 Anesthesia consultation Start: 01-24-2019 Anesthesia consultation Plan of Treatment Date Care Activity Detail Author Start: 06-29-2023 FUV, Provider: Acosta Schafer, Status: Pen, Time: 2:15 PM FUV, Provider: Acosta Schafer, Status: Pen, Time: 2:15 PM -[place] [facility] Work Phone: Start: 02-17-2023 Screening for malign ant neoplasm of colon [facility] Start: 12-29-2022 FUV, Provider: Acosta Schafer, Status: Pen, Time: 1:45 PM FUV, Provider: Acosta Schafer, Status: Pen, Time: 1:45 PM [facility] Work Phone: Start: 08-11-2022 FUV, Provider: Acosta Schafer, Status: Pen, Time: 9:45 AM FUV, Provider: Acosta Schafer, Status: Pen, Time: 9:45 AM [facility] Work Phone: Start: 07-23-2022 [facility] Start: 07-14-2022 POV, Provider: Acosta Schafer, Status: Pen, Time: 9:00 AM POV, Provider: Acosta Schafer, Status: Pen, Time: 9:00 AM [facility] Work Phone: Start: 07-01-2022 End: 07-01-2022 Admission to same day surgery center 07/01/2022 Surgery IP Unit Acosta Schafer MD [address] [place] [address] RIGHT KNEE RIGHT TOTAL KNEE REVISION INSTRUMENTATION ANTONELLA FEMORAL & SCIATIC BLOCK [facility] [place] Comment on above: RIGHT KNEE RIGHT TOT AL KNEE REVISION INSTRUMENTATION ANTONELLA FEMORAL & SCIATIC BLOCK Start: 07-01-2022 End: 07-01-2022 Revj total knee arthrp w/wo algrft 1 component KNEE TOTAL ARTHROPLASTY REVISION Loosening of unicondylar knee replacement (HCC) 07/01/2022 10:50 AM [facility] Start: 07-01-2022 Subsequent hospital visit by physician 07/01/2022 Hospital Encounter IP Unit Acosta Schafer MD [address] [place] [address] [facility] [place] Start: 07-01-2022 SURGNON, Provider: Acosta Schafer, Status: Pen, Time: 7:00 AM SURGNON, Provider: Acosta Schafer, Status: Pen, Time: 7:00 AM [facility] [place] Work Phone: Start: 06-25-2022 PREADMIT, Provider: Merrill Alejandro, Status: Pen, Time: 1:45 PM PREADMIT, Provider: Merrill Alejandro, Status: Pen, Time: 1:45 PM [facility] Work Phone: Start: 06-25-2022 [id number], Provider : Natali Tyson, Status: Pen, Time: 1:00 PM [id number], Provider: Natali Tyson, Status: Pen, Time: 1:00 PM [facility] [place] [place] Work Phone: Start: 06-24-2022 Annual Wellness Visi t (AWV) Annual Wellness Visit (AWV) [facility] Start: 12-17-2021 Radionuclide three-p hase bone study NM bone 3 phase [facility] Start: 12-17-2021 End: 12-17-2021 Patient encounter procedure Departed [facility]-Nuc Med [facility] [place] Start: 12-07-2021 US scan of thyroid US thyroid [facility] Start: 12-07-2021 End: 12-07-2021 [facility] [place] Start: 11-23-2021 Influenza vaccination Flu vaccine (# 1) [facility] Start: 05-18-2021 COVID-19 Vaccine (4 - Booster for Moderna series) COVID-19 Vaccine (4 - Booster for Moderna series) [facility] Start: 02-23-2018 Screening for malign ant neoplasm of breast Breast cancer screen [facility] Start: 02-23-2018 Shingles vaccine (1 of 2) Shingles v accine (1 of 2) [facility] Start: 02-23-2013 Screening for malign ant neoplasm of colon [facility] Start: 2008 Lipid panel Lipids [facility] Start: 02-23-2003 Diabetes screen Diabetes screen [facility] Start: 02-23-1998 Screening for malign ant neoplasm of cervix [facility] Start: 02-23-1989 Screening for malign ant neoplasm of cervix Pap smear [facility] Start: 02-23-1987 DTaP/Tdap/Td vaccine (1 - Tdap) DTaP/Tdap/Td vaccine (1 - Tdap) [employer] Start: 02-23-1986 Hepatitis C screening Hepatitis C sc reen [facility] Start: 02-23-1983 HIV screening HIV screen [employer] Start: 1980 Depression Screen Depression Screen [facility] [employer] Start: 1970 COVID-19 Vaccine (#1) COVID-19 Vacci ne (#1) [employer] End: 07-04-2022 Basic Metabolic Panel w/ Reflex to MG Basic Metabolic Panel w/ Reflex to MG Lab Routine Daily for 3 Days starting 07/02/2022 until 07/04/2022, 2 completed [employer] Phone: Comment on above: Daily for 3 Days sta rting 07/02/2022 until 07/04/2022, 2 completed End: 07-04-2022 CBC panel - Blood by Automated count CBC Lab Routine Daily for 3 Days starting 07/02/2022 until 07/04/2022, 2 completed [employer] Phone: Comment on above: Daily for 3 Days sta rting 07/02/2022 until 07/04/2022, 2 completed Comprehensive metabo lic 2000 panel - Serum or Plasma [facility] Comprehensive metabo lic 2000 panel - Serum or Plasma [facility] IgA [Mass/volume] in Serum or Plasma [facility] IgG [Mass/volume] in Serum or Plasma [facility] IgM [Mass/volume] in Serum or Plasma [facility] Oxygen therapy [[facility] Data Set] Initiate Oxygen Therapy Protocol Respiratory Care Routine Daily until discontinued starting 07/01/[address] [facility] [employer] Phone: Comment on above: Daily until disconti nued starting 07/01/2022 Spirometry panel Incentive tonja metry Respiratory Care Routine Every 2hr while awake until discontinued starting 07/01/[address] [facility] [employer] Phone: Comment on above: Every 2hr while awak e until discontinued starting 07/01/2022 [facility] Immunizations Immunization Date Immunization Notes Care Provider Fa cilirowdy 03-16-2016 influenza virus vaccine, unspecified formulation SUPERVISOR PRE WAVE Elizabeth Christiano Work Phone: [facility] 03-16-2016 influenza, injectabl e, quadrivalent, preservative free Sindy Davila Other [facility] [employer] Other Payers Date Payer Category Payer Medicaid [id number] 2022 Self-pay [id number] 2014 Private Health Insurance [id number] 1968 Unknown [id number]. 182 1968 Unknown [id number] [id number]. 182 1968 Unknown [id number] [id number]. 356 1968 Unknown [id number] 2.16.840.1.647956.3.579.2. 1067 1968 Unknown [id number] 2.16.840.1.167821.3.579.2. 1067 1968 Unknown [id number] 2.16.840.1.621883.3.579.2. 1067 1968 Unknown [id number] 2.16.840.1.672694.3.579.2. 1067 1968 Unknown [id number] 2.16.840.1.037344.3.579.2. 1067 1968 Unknown [id number] 2.16.840.1.710474.3.579.2. 1067 1968 Unknown [id number] 2.16.840.1.063183.3.579.2. 1068 Medicare Medicare [id number] Medicare [id number] Medicare Flanagan [employer] Dual Adv JRG [id number] Private Health Insurance [employer] [facility] PFFS 1 [id number] Unknown [facility] E DUAL COMPLETE Unknown [id number]. 531 Social History Date Type Detail Facility Start: 06-03-2017 End: 09-21-2022 Tobacco smoking status NHIS Never smoked tobacco (finding) [facility] Start: 1970 Sex Assigned At Female F [facility] Start: 06-24-2022 Tobacco use and exposure Smokeless tobacco non-user [employer] Phone: Start: 06-24-2022 End: 07-02-2022 Alcohol intake Current drinker of alcohol (finding) [employer] Phone: Start: 06-24-2022 Alcohol Comment occasional [facility] Phone: Start: 1970 Sex Assigned At Not on file B ON [employer] Phone: Start: 06-14-2022 End: 06-24-2022 Exposure to SARS-CoV-2 (event) Not sure [employer] Phone: Sex Assigned At Sex Assigned At [facility] th [email or web address] Other Medical Equipment Procedure Code Equipment Code Equipment Origin al Text Equipment Identifier Dates Cement Bioprep S t - [id number] Start: 07-01-2022 Stem Tib [id number] [id number] Knee Tot Stbl Joey Roberta [employer] - [id number] , [id number] FDA Start: 07-01-2022 Clinical Notes [...] of both lower extremities (ICD-10 - I87.303) [employer] Other 10-04-2023 Evaluation note* Encounter Date Diagnosis [...] Bilateral lower extremity edema (ICD-10 - R60.0) [employer] Other 04-24-2023 Consult note Author Zoey Ramirez [facility] August 16, 2022 3:19pm Note Date/Time August 16, 2022 2:2 0pm [facility] [place] [address] Hem/Onc Consult Note - OP Signed Patient: Geeta Shelton MR#: [id number] : 1970 Acct:[id number] Age/Sex: 52 / F Type: REG RCR Copies to: Elizabeth Alvarado APRN,COAL CUTTING MACHINE OPERATOR Lorrie Baig DO~ HPI Date/Time of Service: Date of Service: 08/16/2022 Time of Service: 14:19 Referring Provider/PCP: Referring Provider: Lorrie Baig DO PCP: Elizabeth Alvarado APRN, HEMODIALYSIS CHARGE NURSE-C - History of Present Illness Reason for [...] and/or blood disorder. No history of thrombosis. [facility] - Medical History Medical History: [...] Additional comments: Patient: Geeta Shelton MR#: [id number] : 1970 Acct:[id number] Age/Sex: 51 / F ADM Date: 2 Loc: [place] Room: Type: [facility] Attending Dr: Tyler Villeda PA-C Copies to: CARLI Noyola Jeffrey S DO~ Ordering Provider: Tyler Villeda PA-C Date of Service: 12/17/21 [place] bone 3 phase: M25.562, M25.561 Nuclear medicine [...] the knee hardware bilaterally. This may bepostsurgical. [place] bone 3 phase IMPRESSION: Intense uptake of [...] for coordination of care (as documented) and [id number] counseling of patient and/or family. Dictated By: Zoey Ramirez APRN DD/ 1419 Signed By: <Electronically signed by RHEA Ramirez> 08/16/22 5256 [facility] Work Phone: 1(723) 573-451003-11-2023 History of Present illness Narrative* Sosa Poon [...] tape after removal as ordered. Patient has [facility] set up. Knee immobilizer sent with [...] Therapy Med Surg Daily Treatment Note Facility/Department: [address] Room: W268/W268-01 NAME: Geeta Shelton : [...] by Acosta Schafer [place] [facility] Chart Reviewed: Yes Restrictions: Restrictions/Precautions: Fall [...] assess pending progress Goals Skilled Nursing Goals Plant Operator Goal 1: Bed mobility with indep Skilled Nursing Goal 2: Functional transfes with indep Plant Operator Goal 3: Amb 50ft with 2ww and indep Plant Operator Goal 4: 4 steps with handrail and SBA Plant Operator Goal 5: indep with HEP to improve [...] Therapy Med Surg Daily Treatment Note Facility/Department: [address] Room: [place] [address] NAME: Geeta Shelton : 1970 (52 y.o.) [...] Nursing Goal 2: Functional transfes with indep Plant Operator Goal 3: Amb 50ft with 2ww and indep Plant Operator Goal 4: 4 steps with handrail and [...] bed, Bed alarm in place, Nurse notified [facility] (6 CLICK) BASIC MOBILITY AM-PAC Inpatient [...] to accomplish the task * Arya Coronado, SUPERVISOR PRE WAVE - COAL CUTTING MACHINE OPERATOR - 07/02/2022 9:49 AM EST Progress [...] pack per his order. * ChrissSuresh Aparicio, COMPOUND FINISHER - 07/01/2022 5:51 PM EST Images from [...] puffs by inhalation with spacer [] Ipratropium [place] 0.02% unit dose by aerosol Ipratropium [place] MDI 2 puffs by inhalation with spacer [] Duoneb (Ipratropium + Albuterol) unit dose by aerosol Ipratropium MDI + Albuterol MDI 2 puffs byinhalation w/spacer MDI to Aerosol [] Albuterol Sulfate MDI Albuterol Sulfate 0.083% unit dose by aerosol [] Levalbuterol MDI 2 puffs by inhalation Levalbuterol 1.25 mg unit dose by aerosol [] Ipratropium [place] MDI by inhalation Ipratropium [place] 0.02% unit dose by aerosol [] Combivent (Ipratropium + Albuterol) MDI by inhalation Duoneb (Ipratropium + Albuterol) unit doseby aerosol Treatment Assessment [Frequency/Schedule]: Change frequency to: NO CHANGE per Protocol, P&T, [facility] Points 0 1 2 3 [...] (52 y.o.) CODE STATUS: Full Code Room: [place] [address] Date of Service: 07/01/2022 Patient Diagnosis(es): Loosening [...] Ambulation Assistance: Independent Transfer Assistance: Independent Active Secondary Art Teacher: Yes Mode of Transportation: Car OBJECTIVE: [...] How much help for eating meals?: None [facility] Inpatient Daily Activity Raw Score: 19 AM[facility] Inpatient ADL T-Scale Score : 40.22 [...] Physical Therapy Med Surg Initial Assessment Facility/Department: [address] ORTHO TELE Room: [facility]/[place] [address] NAME: Geeta Shelton : 1970 (52 y.o.) [...] Ambulation Assistance: Independent Transfer Assistance: Independent Active Secondary Art Teacher: Yes Mode of Transportation: Car OBJECTIVE: [...] Goals: Patient Goals : to go home Plant Operator Goals Plant Operator Goal 1: Bed mobility with indep Skilled Nursing Goal 2: Functional transfes with indep Skilled Nursing Goal 3: Amb 50ft with 2ww and indep Skilled Nursing Goal 4: 4 steps with handrail and SBA Skilled Nursing Goal 5: indep with HEP to improve LE strength and ROM [facility] (6 CLICK) BASIC MOBILITY AM-PAC Inpatient [...] accomplish the task [facility] [employer] Work Phone: 1(855) 240-770803-09-2023 History of Present illness Narrative* History of [...] most likely do this at [facility] in [place]. * Physical exam * General: No acute [...] grammatical areas may persist related to the [employer] software * Merrill Alejandro PA-C * . [facility] Work Phone: [phone]) 600-484703-07-2023 Hospital Discharge instructions* Discharge Instructions* Arya Coronado [...] Hospital Unit/Room#: W268/W268-01 Discharging Unit Phone Number: [phone] Emergency Contact: Extended Emergency Contact Information Primary Emergency Contact: kena travis Relation: Other Past Surgical History: Past Surgical History: Procedure Laterality Date JOINT REPLACEMENT Left knee PARTIAL KNEE ARTHROPLASTY Right REVISION TOTAL KNEE ARTHROPLASTY Right 07/01/2022 RIGHT KNEE RIGHT TOTAL KNEE REVISION INSTRUMENTATION ANTONELLA FEMORAL & SCIATIC BLOCK-DEMETRIA performed by Acosta Schafer MD [place] [facility] [place] Immunization History: There is no immunization [...] Assisted Dressing Assisted Toileting Independent Feeding Independent Judge Clerk Independent Med Delivery whole Wound Care [...] applicable) Name: Address: Dialysis Schedule: Phone: Fax: Electronic Funds Transfer Coordinator/Material Inspector signature: {Esignature:[id number]} PHYSICIAN SECTION Prognosis: {Prognosis:1167570152} Condition at Discharge: { Patient Condition:469061477} Rehab Potential (if transferring to Rehab): {Prognosis:5483622615} Recommended Labs or Other Treatments After Discharge: Physician Certification: I certify the above information and transfer of Geeta Shelton is necessary for the continuing treatment of the diagnosis listed and that she requires {[facility]} for {GREATER/LESS:862927820} 30 days. Update Admission H&P: {CHP DME Changes in HandP:915217964} PHYSICIAN SIGNATURE: {Esignature:885612604} * Attachments The following attachments cannot be sent through Care Everywhere. * Total Knee Replacement Surgery: General Info (Swedish) * Wound: VAC (Vacuum-Assisted Closure) (Swedish) documented in this encounter[facility]ITALKeep[facility] Work Phone: 1(443) 825-430903-02-2023 History of Present illness Narrative* Sindy Pelaez RN - 06/24/2022 11:10 AM EST Yellow PAT and Dynahex instruction sheet reviewed with patient, who verbalized understanding. documented in this encounterHUNT [facility]IAL [facility]PITALKeep[facility] Work Phone: evaluation noteNo assessment information available [facility] Work Phone: Evaluation note* Diagnosis Status post revision of total knee replacement, right- Primary Status post revision of total replacement of right knee Acute postoperative pain Other acute postoperative pain documented in this encounter [facility]ITAL[facility] Work Phone: evaluation note* Diagnosis Onset Date Resolution Status MGUS (monoclonal gammopathy of unknown significance) acute Microcytosis acute Peripheral neuropathy acute [facility] Work Phone: Evaluation note* Diagnosis Onset Date Resolution Status MGUS (monoclonal gammopathy of unknown significance) acute Microcytosis acute Peripheral neuropathy acute MGUS (monoclonal gammopathy of unknown significance) acute [facility] Work Phone: History general Narrative - Reported* Type Description Date Medical History asthma Medical History snoring Medical History Allergic Rhinitis Medical History Essential Hypertension Surgical History Revise/Replace left knee joint Surgical History Varicose Veins 2009 Surgical History Right ankle surgery Hospitalization History See above [facility] Other History of Present illness Narrative* New [...] grammatical areas may persist related to the [employer] software * Acosta Schafer MD * Senior Attending Physician * [facility] [place] * . -[place] [facility] Work Phone: History of Present illness [...] grammatical areas may persist related to the [employer] software * Acosta Schafer MD * Senior Attending Physician * [facility] * [facility] [place] * . -[place] [facility] Work Phone: History of Present illness [...] will be re-assessed and goals updated. [facility] Work Phone: History of Present illness Narrative* [...] will be re-assessed and goals updated. [facility] Work Phone: History of Present illness Narrative* [...] Schafer MD * Senior Attending Physician * [facility] [place] * . -[facility] Work Phone: History of Present illness [...] grammatical areas may persist related to the [employer] software * Merrill Alejandro PA-C * . -[facility] Work Phone: Progress note Author rKzysztof Salazar [facility] September 21, 2022 9:52am Note Date/Time September 21, 2022 9:49a m [facility] [place] [address] Hem/Onc Follow Up Note - OP Signed Patient: Geeta Shelton MR#: [id number] : 1970 Acct:[id number] Age/Sex: 52 / F Type: REG RCR [...] for coordination of care (as documented) and oorp-gj-vcil counseling of patient and/or family. [facility] - Medical History Medical History: [...] by Krzysztof Salazar II, > 09/21/22 0952 [facility] Work Phone: Reason for visit Narrative* Initial Evaluation, Pre-Op . * Referred by: [facility]osta [facility]fer [facility] Work Phone: Reason for visit Narrative* Initial Evaluation, Pre-Op . * Referred by: Dr. 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 [place] of attending provider for home health Dr. [...] content) DATE CREATED AUTHOR 02/01/2019 [facility] DATE CREATED AUTHOR AUTHOR'S ORGANIZ ATION 07/04/2022 [facility] DATE CREATED AUTHOR AUTHOR'S ORGANIZ ATION 07/08/2022 [facility] DATE CREATED AUTHOR AUTHOR'S ORGANIZ ATION 12/30/2022 [employer] DATE CREATED AUTHOR AUTHOR'S ORGANIZ ATION 01/09/2023 [facility] DATE CREATED AUTHOR AUTHOR'S ORGANIZ ATION 06/12/2024 [facility] DATE CREATED AUTHOR AUTHOR'S ORGANIZ ATION 10/04/2024 [facility] ys[facility] Care Teams (unrecognized sec tion and content) Team Status: Active Member Role Status Dates Elizabeth Alvarado APRN HEMODIALYSIS CHARGE NURSE-C Primary Care Provide r Active Team Status: Inactive Member Role Status Dates Elizabeth Alvarado APRN HEMODIALYSIS CHARGE NURSE-René Primar y Care Provider, Attending Provider Active Team Status: Inactive Member Role Status Dates Elizabeth Alvarado APRN HEMODIALYSIS CHARGE NURSE-C Primary Care Provide r Active Lorrie Baig DO Attending Provider Active Team Status: Inactive Member Role Status Dates Elizabeth Alvarado APRN HEMODIALYSIS CHARGE NURSE-C Primary Care Provide r Active Tyler Villeda PA-C Attending Provider Active Team Status: Inactive Member Role Status Dates Elizabeth Alvarado APRN HEMODIALYSIS CHARGE NURSE-C Attending Provider A ctive Services Family [facility] Primary Care Provider Active Maintenance Foreman Relationship Specialty Start Date End Date Elizabeth Alvarado PCP - General 07/01/22 Team Status: Active Member Role Status Dates Elizabeth Alvarado APRN HEMODIALYSIS CHARGE NURSE-C Primary Care Provide r Active Zoey Ramirez APRN Attending Provider Active Lorrie Baig DO Referring Provider Active Team Status: Inactive Member Role Status Dates Elizabeth Alvarado APRN HEMODIALYSIS CHARGE NURSE-C Primary Care Provide r Active Acosta Schafer Attending Provider Active Team Status: Inactive Member Role Status Dates Elizabeth Alvarado APRN HEMODIALYSIS CHARGE NURSE-C Primary Care Provide r Active Sindy Davila HEMODIALYSIS CHARGE NURSE-C Attending Provider Active Team Status: Inactive Member Role Status Dates Elizabeth Alvarado APRN HEMODIALYSIS CHARGE NURSE-C Attending Provider A ctive Start: August 24, 2023 End: August 24, 2023 Team Status: Active Member Role Status Dates PHYSICIAN NO FAMILY Primary Care Provider Active Team Status: Inactive Member Role Status Dates Elizabeth Alvarado APRN HEMODIALYSIS CHARGE NURSE-C Attending Provider A ctive Start: September 07, 2023 End: September 07, 2023 PHYSICIAN NO FAMILY Primary Care Provider Active Start: September 07, 2023 End: September 07, 2023 Team Status: Active Member Role Status Dates Elizabeth Alvarado APRN HEMODIALYSIS CHARGE NURSE-C Primary Care Provide r Active Start: September 30, 2023 Zoey Ramirez APRN Active Start: September 30, 2023 Lorrie Baig DO Referring Provider Active Sta rt: September 30, 2023 Krzysztof Salazar II, DO Attending Provider Active Start: September 30, 2023 Team Status: Inactive Member Role Status Dates Elizabeth Alvarado APRN HEMODIALYSIS CHARGE NURSE-C Primary Care Provide r Active Start: September [...] 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 NH REVJ TOTAL KNEE ARTHRP W/WO ALGRFT 1 COMPONENT NH REVJ TOT KNEE ARTHRP FEM&ENTIRE TIBIAL COMPONE RIGHT KNEE RIGHT TOTAL KNEE REVISION INSTRUMENTATION ANTONELLA FEMORAL & SCIATIC BLOCK Acosta Schafer MD [address] [place] [address] [facility] [address] [place] [address] Referral ID Status Reason Start Date Expiration Date Visits Re quested Visits Authorized [id number] 1 1 Ordered Prescriptions (unrec ognized section [...] at 250 mL/hr, Administer over 60 Minutes, ANALYTICAL LAB ANALYST TO O.R., On Renee 07/01/22 at 0845, [...] (NoRateChange - Provider: Yang Mccollum APRN - CHIROPRACTIC ASSISTANT)1311 (Anesthesia Volume Adjustment - Provider: Yang Mccollum APRN - TOMMIE)1324 (Anesthesia Volume Adjustment - Provider: Yang Mccollum APRN - CHIROPRACTIC ASSISTANT) lactated ringers IV soln infusion IntraVENous, at [...] Oral, EVERY 4 HOURS PRN, Starting on Reene 07/01/22 at 1502, Until Discontinued, Pain Moderate [...] BE BASED ON THE PRIMARY CLINICAL RECORDS. [facility]. provides no warranty or guarantee of the accuracy or completeness of information in this document.
== END 2025-01-08 08:47 | disposition home or self-care (01) ==
LOC: WC 08:46
PROVIDERS: Visit Provider Physician Assistant
DX: E11.621 Type 2 diabetes mellitus with foot ulcer (principal); L97.415 Non-pressure chronic ulcer of right heel and midfoot with muscle involvement without evidence of necrosis
CPT/HCPCS: 11043; 29445; A6213

== ENCOUNTER 2025-01-14 08:02 | Outpatient (OUT) | payer MEDICARE, MEDICAID, SELFPAY ==
--- OUTSIDE RECORDS SUMMARY | 2025-01-15 08:08 | XMS_ITS | CCD ---
Author Organization [facility] Care Team Providers Care Environmental Scientists Name Role Phone RHEA Alvarado Attending Provider [employer] [facility], Services Primary Care Provider RHEA Alvarado Primary [...] Care Provide r Acosta Schafer Attending Provider [phone] RHEA Ramirez Attending Provider DO Lorrie Baig Referring Provider [place], Dr. Acosta Tyson Attending Un available Pending, [...] source) Ibuprofen Drug Allergy 4 Unknown Reaction [facility] Penicillins (antibiotic) (2 sources) Penicillin Drug Allergy 4 hives [facility] (20 sources) Penicillins; Translations: [Penicillins] Allergy to substance 8 Anaphylaxis [facility] (6 sources) Ibuprofen; Translations: [ibuprofen] Drug Allergy 3 Unknown Reaction [facility] (3 sources) Penicillin V Drug Allergy 3 hives [facility] (1 source) Penicillin Drug Allergy 4 [facility] Repository Medications Current Medications Medication Drug Class(es) Dates Sig (Normalized) Sig (Original) acetaminophen 325 mg oral tablet (2 sources) Start: 07-01-2022 acetaminophen (TYLENOL) tablet 650 mg Start: 07-01-2022 End: 07-01-2022 acetaminophen (TYLENOL) tabl et 1,000 mg [id number] 200 actuat albuterol 0.09 mg/actuat metered dose [...] disintegrating tablet 4 mg polyethylene glycol 3350 [id number] mg powder for oral solution (1 source) [...] Start: 12-03-2021 take 1 capsule by mo [facility] once daily venlafaxine (EFFEXOR XR) 75 MG [...] Inhalation, 2 TIMES DAILY, First dose on [facility] 07/01/22 at 2000, Until Discontinued Substituted for [...] Range Facility Outside Recordson 06-11-2024 Outside Records [id number] [facility] Rad - Other Radiology Report on 06-11-2024 Rad - Other Radiology Report [id number] [facility] Rad - Other Radiology Report [id number]#[id number] [facility] Alanine aminotransferase [En zymatic activity/volume] in Serum or PlasmaOrdered By: Krzysztof Salazar on 09-20-2023 ALT [Catalytic activity/Vol] 33 U/L 7-52 [facility] Albumin [Mass/volume] in Ser um or PlasmaOrdered By: Krzysztof Salazar on 09-20-2023 Albumin [Mass/Vol] 3.8 g/dL 2.9-4.4 [facility] Albumin [Mass/volume] in Ser um or Plasma by Bromocresol green (BCG) dye binding methoOrdered By: Krzysztof Salazar on 09-20-2023 Albumin BCG dye [Mass/Vol] 4.2 g/dL 3.5-5.7 [facility] Alkaline phosphatase [Enzyma tic activity/volume] in Serum or PlasmaOrdered By: Krzysztof Salazar on 09-20-2023 ALP [Catalytic activity/Vol] 79 U/L 34-104 [facility] Aspartate aminotransferase [ Enzymatic activity/volume] in Serum or PlasmaOrdered By: Krzysztof Salazar on 09-20-2023 AST [Catalytic activity/Vol] 30 U/L 13-39 [facility] Basophils Auto (Bld) [#/Vol] Ordered By: Krzysztof Salazar on 09-20-2023 Basophils (Bld) [#/Vol] 0.0 10*3/uL 0.0-0.2 [facility] Basophils/100 WBC Auto (Bld) Ordered By: Krzysztof Salazar on 09-20-2023 Basophils/100 WBC (Bld) 0.5 % . [facility] Bilirubin.total [Mass/volume ] in Serum or PlasmaOrdered By: Krzysztof Salazar on 09-20-2023 Bilirubin [Mass/Vol] 0.6 mg/dL 0.3-1.0 [facility] Calcium [Mass/volume] in Ser um or PlasmaOrdered By: Krzysztof Salazar on 09-20-2023 Calcium [Mass/Vol] 9.7 mg/dL 8.6-10.3 [facility] Carbon dioxide, total [Moles /volume] in Serum or PlasmaOrdered By: Krzysztof Salazar on 09-20-2023 CO2 [Moles/Vol] 32.4 mmol/L 21.0-31.0 [facility] Chloride [Moles/volume] in S hugo or PlasmaOrdered By: Krzysztof Salazar on 09-20-2023 Chloride [Moles/Vol] 97 mmol/L 98-107 [facility] Creatinine [Mass/volume] in Serum or PlasmaOrdered By: Krzysztof Salazar on 09-20-2023 Creatinine [Mass/Vol] 0.60 mg/dL 0.60-1.20 [facility] Eosinophils Auto (Bld) [#/Vo l]Ordered By: Krzysztof Salazar on 09-20-2023 Eosinophils (Bld) [#/Vol] 0.2 10*3/uL 0.0-0.45 [facility] Eosinophils/100 WBC Auto (Bl d)Ordered By: Krzysztof Salazar on 09-20-2023 Eosinophils/100 WBC (Bld) 2.6 % . [facility] Erythrocyte distribution wid th Auto (RBC) [Ratio]Ordered By: Krzysztof Salazar on 09-20-2023 Erythrocyte distribution width (RBC) [Ratio] 16.7 % 11.9-15.3 [facility] Ferritin [Mass/volume] in Se rum or PlasmaOrdered By: Krzysztof Salazar on 09-20-2023 Ferritin [Mass/Vol] 92.7 ng/mL 11.0-306.8 [facility] Globulin Calc (S) [Mass/Vol] Ordered By: Krzysztof Salazar on 09-20-2023 Globulin (S) [Mass/Vol] 3.5 g/dL [facility] Glucose [Mass/volume] in Ser um or PlasmaOrdered By: Krzysztof Salazar on 09-20-2023 Glucose [Mass/Vol] 123 mg/dL 70-100 [facility] Comment on above: ADA recommended refe rence rangeRandom Glucose Reference Range is dependent on time and content of last meal. Glucose of more than 200 mg/dL in a nonstressed, ambulatory subject supports the diagnosis of Diabetes Mellitus. Hematocrit Auto (Bld) [Volum e fraction]Ordered By: Krzysztof Salazar on 09-20-2023 Hematocrit (Bld) [Volume fraction] 38.3 % 34.0-46.4 [facility] Hemoglobin [Mass/volume] in BloodOrdered By: Krzysztof Salazar on 09-20-2023 Hemoglobin (Bld) [Mass/Vol] 12.5 g/dL 11.8-15.4 [facility] IgA [Mass/volume] in Serum o r PlasmaOrdered By: Krzysztof Salazar on 09-20-2023 IgA [Mass/Vol] 409 mg/dL 87-352 [facility] IgG [Mass/volume] in Serum o r PlasmaOrdered By: Krzysztof Salazar on 09-20-2023 IgG [Mass/Vol] 1704 mg/dL 586-1602 [facility] IgM [Mass/volume] in Serum o r PlasmaOrdered By: Krzysztof Salazar on 09-20-2023 IgM [Mass/Vol] 122 mg/dL 26-217 [facility] Comment on above: Performed at: [address] [id number] Director: Jeyson Duncan PhD, Phone: [phone] Immunoglobulin light chains. kappa.free [Mass/volume] in SerumOrdered By: Krzysztof Salazar on 09-20-2023 Immunoglobulin light chains.kappa.free (S) [Mass/Vol] 30.9 mg/L 3.3-19.4 [facility] Immunoglobulin light chains. kappa.free/Immunoglobulin light chains.lambda.free [MassOrdered By: Krzysztof Salazar on 09-20-2023 Immunoglobulin light chains.kappa.free/Immuno globulin light chains.lambda.free (S) [Mass ratio] 1.17 0.26-1.65 [facility] Comment on above: Performed at: [address] [id number] Director: Jeyson Duncan PhD, Phone: [phone] Immunoglobulin light chains. lambda.free [Mass/volume] in Serum or PlasmaOrdered By: Krzysztof Salazar on 09-20-2023 Immunoglobulin light chains.lambda.free [Mass/Vol] 26.4 mg/L 5.7-26.3 [facility] Iron [Mass/volume] in Serum or PlasmaOrdered By: Krzysztof Salazar on 09-20-2023 Iron [Mass/Vol] 74 ug/dL 50-212 [facility] Iron binding capacity [Mass/ volume] in Serum or PlasmaOrdered By: Krzysztof Salazar on 09-20-2023 Iron binding capacity [Mass/Vol] 344 ug/dL 255-450 [facility] Iron saturation [Mass Fracti on] in Serum or PlasmaOrdered By: Krzysztof Salazar on 09-20-2023 Iron saturation [Mass fraction] 21.5 % 20-50 [facility] Leukocytes [#/volume] correc silverio for nucleated erythrocytes in Blood by Automated counOrdered By: Krzysztof Salazar on 09-20-2023 WBC corrected for nucl RBC Auto (Bld) [#/Vol] 8.5 10*3/uL 3.8-11.6 [facility] Lymphocytes Auto (Bld) [#/Vo l]Ordered By: Krzysztof Salazar on 09-20-2023 Lymphocytes (Bld) [#/Vol] 2.1 10*3/uL 1.00-4.8 [facility] Lymphocytes/100 WBC Auto (Bl d)Ordered By: Krzysztof Salazar on 09-20-2023 Lymphocytes/100 WBC (Bld) 24.7 % . [facility] MCH Auto (RBC) [Entitic mass ]Ordered By: Krzysztof Salazar on 09-20-2023 MCH (RBC) [Entitic mass] 25.8 pg 24.7-34.3 [facility] MCHC Auto (RBC) [Mass/Vol]Or dered By: Krzysztof Salazar on 09-20-2023 MCHC (RBC) [Mass/Vol] 32.7 g/dL 32.0-35.0 [facility] MCV Auto (RBC) [Entitic vol] Ordered By: Krzysztof Salazar on 09-20-2023 MCV (RBC) [Entitic vol] 78.7 fL 80-100 [facility] Monocytes Auto (Bld) [#/Vol] Ordered By: Krzysztof Salazar on 09-20-2023 Monocytes (Bld) [#/Vol] 0.7 10*3/uL 0.0-0.8 [facility] Monocytes/100 WBC Auto (Bld) Ordered By: Krzysztof Salazar on 09-20-2023 Monocytes/100 WBC (Bld) 7.9 % . [facility] Neutrophils Auto (Bld) [#/Vo l]Ordered By: Krzysztof Salazar on 09-20-2023 Neutrophils (Bld) [#/Vol] 5.5 10*3/uL 1.8-7.7 [facility] Neutrophils/100 WBC Auto (Bl d)Ordered By: Krzysztof Salazar on 09-20-2023 Neutrophils/100 WBC (Bld) 64.3 % . [facility] No Panel InformationOrdered By: Krzysztof Salazar on 09-20-2023 Estimated GFR (CKD-EPI) > 60.0 mL/Min [facility] Creatinine Clearance (Chem 143.32 [facility] Protein Electrophoresis M-Antwan Not observed g/dL Not Observed [facility] Protein Electrophoresis Note See comment . [facility] Comment on above: Protein electrophore sis scan will follow via computer,mail, or application integration architect delivery. Serum Immunofixation See comment . [facility] Comment on above: No monoclonality det ected. Nucleated erythrocytes [Pres ence] in Blood by Automated countOrdered By: Krzysztof Salazar on 09-20-2023 Nucleated RBC Auto Ql (Bld) 0.1 /100{WBC} 0-0.5 [facility] Platelet mean volume Auto (B ld) [Entitic vol]Ordered By: Krzysztof Salazar on 09-20-2023 Platelet mean volume (Bld) [Entitic vol] 8.8 fL 6.3-10.7 [facility] Platelets Auto (Bld) [#/Vol] Ordered By: Krzysztof Salazar on 09-20-2023 Platelets (Bld) [#/Vol] 271 10*3/uL 150-450 [facility] Potassium [Moles/volume] in Serum or PlasmaOrdered By: Krzysztof Salazar on 09-20-2023 Potassium [Moles/Vol] 4.4 mmol/L 3.5-5.1 [facility] Protein [Mass/volume] in Ser um or PlasmaOrdered By: Krzysztof Salazar on 09-20-2023 Protein [Mass/Vol] 7.7 g/dL 6.4-8.9 [facility] Protein [Mass/Vol] 7.8 g/dL 6.0-8.5 [facility] RBC Auto (Bld) [#/Vol]Ordere d By: Krzysztof Salazar on 09-20-2023 RBC (Bld) [#/Vol] 4.86 10*6/uL 3.60-5.00 [facility] Serum globulin measurement ( mass/volume)Ordered By: Krzysztof Salazar on 09-20-2023 Globulin (S) [Mass/Vol] 4.0 g/dL 2.2-3.9 [facility] Serum or plasma albumin/glob ulin mass ratioOrdered By: Krzysztof Salazar on 09-20-2023 Albumin/Globulin [Mass ratio] 1.2 {ratio} [facility] Albumin/Globulin [Mass ratio] 1.0 {ratio} 0.7-1.7 [facility] Serum or plasma alpha 1 glob ulin measurement by electrophoresis (mass/volume)Ordered By: Krzysztof Salazar on 09-20-2023 Alpha 1 globulin Elph [Mass/Vol] 0.3 g/dL 0.0-0.4 [facility] Serum or plasma alpha 2 glob ulin measurement by electrophoresis (mass/volume)Ordered By: Krzysztof Salazar on 09-20-2023 Alpha 2 globulin Elph [Mass/Vol] 0.8 g/dL 0.4-1.0 [facility] Serum or plasma anion gap de terminationOrdered By: Krzysztof Salazar on 09-20-2023 Anion gap [Moles/Vol] 11.0 mmol/L 6.0-15.0 [facility] Serum or plasma beta globuli n measurement by electrophoresis (mass/volume)Ordered By: Krzysztof Salazar on 09-20-2023 Beta globulin Elph [Mass/Vol] 1.2 g/dL 0.7-1.3 [facility] Serum or plasma gamma globul in measurement by electrophoresis (mass/volume)Ordered By: Krzysztof Salazar on 09-20-2023 Gamma globulin Elph [Mass/Vol] 1.8 g/dL 0.4-1.8 [facility] Sodium [Moles/volume] in Ser um or PlasmaOrdered By: Krzysztof Salazar on 09-20-2023 Sodium [Moles/Vol] 136 mmol/L 136-145 [facility] Transferrin [Mass/volume] in Serum or PlasmaOrdered By: Krzysztof Salazar on 09-20-2023 Transferrin [Mass/Vol] 246 mg/dL 203-362 [facility] Urea nitrogen [Mass/volume] in Serum or PlasmaOrdered By: Krzysztof Salazar on 09-20-2023 Urea nitrogen [Mass/Vol] 16 mg/dL 7 [facility] WBC Auto (Bld) [#/Vol]Ordere d By: Krzysztof Salazar on 09-20-2023 WBC (Bld) [#/Vol] 8.5 10*3/uL 3.8-11.6 [facility] Alanine aminotransferase [En zymatic activity/volume] in Serum or PlasmaOrdered By: Elizabeth Alvarado on 08-24-2023 ALT [Catalytic activity/Vol] 28 U/L [facility] Albumin [Mass/volume] in Ser um or Plasma by Bromocresol green (BCG) dye binding methoOrdered By: Elizabeth Alvarado on 08-24-2023 Albumin BCG dye [Mass/Vol] 4.3 g/dL 3.5-5.7 [facility] Alkaline phosphatase [Enzyma tic activity/volume] in Serum or PlasmaOrdered By: Elizabeth Alvarado on 08-24-2023 ALP [Catalytic activity/Vol] 86 U/L 34-104 [facility] Aspartate aminotransferase [ Enzymatic activity/volume] in Serum or PlasmaOrdered By: Elizabeth Alvarado on 08-24-2023 AST [Catalytic activity/Vol] 28 U/L 13-39 [facility] Basophils Auto (Bld) [#/Vol] Ordered By: Elizabeth Alvarado on 08-24-2023 Basophils (Bld) [#/Vol] 0.1 10*3/uL 0.0-0.2 [facility] Basophils/100 WBC Auto (Bld) Ordered By: Elizabeth Alvarado on 08-24-2023 Basophils/100 WBC (Bld) 0.7 % . [facility] Bilirubin.total [Mass/volume ] in Serum or PlasmaOrdered By: Elizabeth Alvarado on 08-24-2023 Bilirubin [Mass/Vol] 0.4 mg/dL 0.3-1.0 [facility] Calcium [Mass/volume] in Ser um or PlasmaOrdered By: Elizabeth Alvarado on 08-24-2023 Calcium [Mass/Vol] 9.4 mg/dL 8.6-10.3 [facility] Carbon dioxide, total [Moles /volume] in Serum or PlasmaOrdered By: Elizabeth Alvarado on 08-24-2023 CO2 [Moles/Vol] 29.2 mmol/L 21.0-31.0 [facility] Chloride [Moles/volume] in S hugo or PlasmaOrdered By: Elizabeth Alvarado on 08-24-2023 Chloride [Moles/Vol] 96 mmol/L 98-107 [facility] Cholesterol [Mass/volume] in Serum or PlasmaOrdered By: Elizabeth Alvarado on 08-24-2023 Cholesterol [Mass/Vol] 160 mg/dL 140-200 [facility] Comment on above: Chol less than 200 m g/dl low riskChol 201-239 mg/dl borderline riskChol 240 mg/dl and greater high risk Cholesterol in LDL Calc [Mas s/Vol]Ordered By: Elizabeth Alvarado on 08-24-2023 Cholesterol in LDL [Mass/Vol] 78 mg/dL 0-100 [facility] Comment on above: LDL ATP III CLASSIFI CATIONLDL less than 100 mg/dL OptimalLDL 100-129 mg/dL Near or above optimalLDL 130-159 mg/dL Borderline highLDL 160-189 mg/dL HighLDL greater than 189 mg/dL Very high Cholesterol in VLDL Calc [Ma ss/Vol]Ordered By: Elizabeth Alvarado on 08-24-2023 Cholesterol in VLDL [Mass/Vol] 22 mg/dL [facility] Creatinine [Mass/volume] in Serum or PlasmaOrdered By: Elizabeth Alvarado on 08-24-2023 Creatinine [Mass/Vol] 0.65 mg/dL 0.60-1.20 [facility] Creatinine [Mass/volume] in UrineOrdered By: Elizabeth Alvarado on 08-24-2023 Creatinine (U) [Mass/Vol] 76.0 mg/dL [facility] Comment on above: No reference range e stablished Eosinophils Auto (Bld) [#/Vo l]Ordered By: Elizabeth Alvarado on 08-24-2023 Eosinophils (Bld) [#/Vol] 0.3 10*3/uL 0.0-0.45 [facility] Eosinophils/100 WBC Auto (Bl d)Ordered By: Elizabeth Alvarado on 08-24-2023 Eosinophils/100 WBC (Bld) 3.3 % . [facility] Erythrocyte distribution wid th Auto (RBC) [Ratio]Ordered By: Elizabeth Alvarado on 08-24-2023 Erythrocyte distribution width (RBC) [Ratio] 15.8 % 11.9-15.3 [facility] Globulin Calc (S) [Mass/Vol] Ordered By: Elizabeth Alvarado on 08-24-2023 Globulin (S) [Mass/Vol] 3.4 g/dL [facility] Glucose [Mass/volume] in Ser um or PlasmaOrdered By: Elizabeth Alvarado on 08-24-2023 Glucose [Mass/Vol] 92 mg/dL 70-100 [facility] Comment on above: ADA recommended refe rence rangeRandom Glucose Reference Range is dependent on time and content of last meal. Glucose of more than 200 mg/dL in a nonstressed, ambulatory subject supports the diagnosis of Diabetes Mellitus. Hematocrit Auto (Bld) [Volum e fraction]Ordered By: Elizabeth Alvarado on 08-24-2023 Hematocrit (Bld) [Volume fraction] 40.6 % 34.0-46.4 [facility] Hemoglobin [Mass/volume] in BloodOrdered By: Elizabeth Alvarado on 08-24-2023 Hemoglobin (Bld) [Mass/Vol] 13.2 g/dL 11.8-15.4 [facility] Leukocytes [#/volume] correc silverio for nucleated erythrocytes in Blood by Automated counOrdered By: Elizabeth Alvarado on 08-24-2023 WBC corrected for nucl RBC Auto (Bld) [#/Vol] 10.2 10*3/uL 3.8-11.6 [facility] Lymphocytes Auto (Bld) [#/Vo l]Ordered By: Elizabeth Alvarado on 08-24-2023 Lymphocytes (Bld) [#/Vol] 2.6 10*3/uL 1.00-4.8 [facility] Lymphocytes/100 WBC Auto (Bl d)Ordered By: Elizabeth Alvarado on 08-24-2023 Lymphocytes/100 WBC (Bld) 25.5 % . [facility] MCH Auto (RBC) [Entitic mass ]Ordered By: Elizabeth Alvarado on 08-24-2023 MCH (RBC) [Entitic mass] 26.1 pg 24.7-34.3 [facility] MCHC Auto (RBC) [Mass/Vol]Or dered By: Elizabeth Alvarado on 08-24-2023 MCHC (RBC) [Mass/Vol] 32.5 g/dL 32.0-35.0 [facility] MCV Auto (RBC) [Entitic vol] Ordered By: Elizabeth Alvarado on 08-24-2023 MCV (RBC) [Entitic vol] 80.3 fL 80-100 [facility] Microalbumin [Mass/volume] i n UrineOrdered By: Elizabeth Alvarado on 08-24-2023 Albumin DL <= 20 mg/L (U) [Mass/Vol] mg/dL 0.0-1.8 [facility] Monocytes Auto (Bld) [#/Vol] Ordered By: Elizabeth Alvarado on 08-24-2023 Monocytes (Bld) [#/Vol] 0.8 10*3/uL 0.0-0.8 [facility] Monocytes/100 WBC Auto (Bld) Ordered By: Elizabeth Alvarado on 08-24-2023 Monocytes/100 WBC (Bld) 8.1 % . [facility] Neutrophils Auto (Bld) [#/Vo l]Ordered By: Elizabeth Alvarado on 08-24-2023 Neutrophils (Bld) [#/Vol] 6.4 10*3/uL 1.8-7.7 [facility] Neutrophils/100 WBC Auto (Bl d)Ordered By: Elizabeth Alvarado on 08-24-2023 Neutrophils/100 WBC (Bld) 62.4 % . [facility] No Panel InformationOrdered By: Elizabeth Alvarado on 08-24-2023 Estimated GFR (CKD-EPI) > 60.0 mL/Min [facility] Creatinine Clearance (Chem N/A [facility] Nucleated erythrocytes [Pres ence] in Blood by Automated countOrdered By: Elizabeth Alvarado on 08-24-2023 Nucleated RBC Auto Ql (Bld) 0.2 /100{WBC} 0-0.5 [facility] Platelet mean volume Auto (B ld) [Entitic vol]Ordered By: Elizabeth Alvarado on 08-24-2023 Platelet mean volume (Bld) [Entitic vol] 9.8 fL 6.3-10.7 [facility] Platelets Auto (Bld) [#/Vol] Ordered By: Elizabeth lAvarado on 08-24-2023 Platelets (Bld) [#/Vol] 283 10*3/uL 150-450 [facility] Potassium [Moles/volume] in Serum or PlasmaOrdered By: Elizabeth Alvarado on 08-24-2023 Potassium [Moles/Vol] 4.3 mmol/L 3.5-5.1 [facility] Protein [Mass/volume] in Ser um or PlasmaOrdered By: Elizabeth Alvarado on 08-24-2023 Protein [Mass/Vol] 7.7 g/dL 6.4-8.9 [facility] RBC Auto (Bld) [#/Vol]Ordere d By: Elizabeth Alvarado on 08-24-2023 RBC (Bld) [#/Vol] 5.06 10*6/uL 3.60-5.00 [facility] Serum or plasma albumin/glob ulin mass ratioOrdered By: Elizabeth Alvarado on 08-24-2023 Albumin/Globulin [Mass ratio] 1.3 {ratio} [facility] Serum or plasma anion gap de terminationOrdered By: Elizabeth Alvarado on 08-24-2023 Anion gap [Moles/Vol] 18.1 mmol/L 6.0-15.0 [facility] Serum or plasma high density lipoprotein (HDL) cholesterol measurementOrdered By: Elizabeth Alvarado on 08-24-2023 Cholesterol in HDL [Mass/Vol] 60 mg/dL 23-92 [facility] Comment on above: HDL CHOL ATP-III CLA SSIFICATION Cardiovascular RiskHDL > or equal to 60 mg/dL LOWHDL < 40 mg/dL HIGH Serum or plasma total choles terol/high density lipoprotein (HDL) cholesterol mass ratOrdered By: Elizabeth Alvarado on 08-24-2023 Cholesterol.total/Choles terol in HDL [Mass ratio] 2.7 {ratio} <5.0 [facility] Sodium [Moles/volume] in Ser um or PlasmaOrdered By: Elizabeth Alvarado on 08-24-2023 Sodium [Moles/Vol] 139 mmol/L 136-145 [facility] Thyrotropin [Units/volume] i n Serum or PlasmaOrdered By: Elizabeth Alvarado on 08-24-2023 TSH Qn 2.40 m[IU]/L 0.45-5.33 [facility] Triglyceride [Mass/volume] i n Serum or PlasmaOrdered By: Elizabeth Alvarado on 08-24-2023 Triglyceride [Mass/Vol] 112 mg/dL 0-149 [facility] Comment on above: TRIG ATP III CLASSIF ICATIONTRIG less than 150 mg/dL NormalTRIG 150-199 mg/dL Borderline highTRIG 200-500 mg/dL High TRIG greater than 500 mg/dL Very highStandard traceable to the Center for Disease Conrtrol and Prevention (CDC) test method. Urea nitrogen [Mass/volume] in Serum or PlasmaOrdered By: Elizabeth Alvarado on 08-24-2023 Urea nitrogen [Mass/Vol] 17 mg/dL 7-25 [facility] Urine microalbumin/creatinin e mass ratioOrdered By: Elizabeth Alvarado on 08-24-2023 Albumin/Creatinine DL <= 20 mg/L (U) [Mass ratio] TNP [facility] Comment on above: Test not performed WBC Auto (Bld) [#/Vol]Ordere d By: Elizabeth Alvarado on 08-24-2023 WBC (Bld) [#/Vol] 10.2 10*3/uL 3.8-11.6 [facility] Established Visit (Orthopaed ic Surgery)on 12-29-2022 [...] grammatical areas may persist related to the [employer] software Merrill Alejandro PA-C . Active Problems [...] Dec 29 2022 1:38PM EST (Author) Normal [employer] Established Visit (Orthopaed ic Surgery)on 09-22-2022 Established [...] grammatical areas may persist related to the [employer] software Acosta Schafer MD Senior Attending Physician [facility] [place] . Active Problems Problems Acute pain of [...] 1 tablet daily Results/Data Xray Knee 3 [id number] 01:48PMAcosta Schafer Test NameResultFlagReference Xray Knee 3 View(Report) FINAL REPORT Interpreted by: ACOSTA SCHAFER BURTON, MD 09/22/22 14:13 Patient Name: GEETA SHELTON STUDY: KNEE; 3 VIEWS; Right; 09/22/2022 1:48 pm INDICATION: pain Z96.659: Status post total knee replacement. ACCESSION NUMBER(S): [id number] ORDERING CLINICIAN: ACOSTA SCHAFER FINDINGS: Right knee [...] Status post total knee replacement. ACCESSION NUMBER(S): [id number] ORDERING CLINICIAN: ACOSTA SCHAFER FINDINGS: Right knee three views. Status post revision total knee replacement components in good position no signs of fracture dislocation or other bony abnormalities Electronically signed by: ACOSTA SCHAFER MD Normal [facility] 09-22-2022 XR Knee 3 Views Normal [facility] Work Phone: Alanine aminotransferase [En zymatic activity/volume] in Serum or PlasmaOrdered By: Zoey Ramirez on 08-17-2022 ALT [Catalytic activity/Vol] 45 U/L 7-52 [facility] Albumin [Mass/volume] in Ser um or PlasmaOrdered By: Zoey Ramirez on 08-17-2022 Albumin [Mass/Vol] 3.7 g/dL 2.9-4.4 [facility] Albumin [Mass/volume] in Ser um or Plasma by Bromocresol green (BCG) dye binding methoOrdered By: Zoey Ramirez on 08-17-2022 Albumin BCG dye [Mass/Vol] 4.1 g/dL 3.5-5.7 [facility] Albumin/Protein.total in 24 hour Urine by ElectrophoresisOrdered By: Zoey Ramirez on 08-17-2022 Albumin Elph (24H U) [Mass fraction] 59.9 % . [facility] Alkaline phosphatase [Enzyma tic activity/volume] in Serum or PlasmaOrdered By: Zoey Ramirez on 08-17-2022 ALP [Catalytic activity/Vol] 90 U/L 34-104 [facility] Aspartate aminotransferase [ Enzymatic activity/volume] in Serum or PlasmaOrdered By: Zoey Ramirez on 08-17-2022 AST [Catalytic activity/Vol] 40 U/L 13-39 [facility] Basophils Auto (Bld) [#/Vol] Ordered By: Zoey Ramirez on 08-17-2022 Basophils (Bld) [#/Vol] 0.1 10*3/uL 0.0-0.2 [facility] Basophils/100 WBC Auto (Bld) Ordered By: Zoey Ramirez on 08-17-2022 Basophils/100 WBC (Bld) 0.9 % . [facility] Bilirubin.total [Mass/volume ] in Serum or PlasmaOrdered By: Zoey Ramirez on 08-17-2022 Bilirubin [Mass/Vol] 0.4 mg/dL 0.3-1.0 [facility] Calcium [Mass/volume] in Ser um or PlasmaOrdered By: Zoey Ramirez on 08-17-2022 Calcium [Mass/Vol] 9.1 mg/dL 8.6-10.3 [facility] Carbon dioxide, total [Moles /volume] in Serum or PlasmaOrdered By: Zoey Ramirez on 08-17-2022 CO2 [Moles/Vol] 27.9 mmol/L 21.0-31.0 [facility] Chloride [Moles/volume] in S hugo or PlasmaOrdered By: Zoey Ramirez on 08-17-2022 Chloride [Moles/Vol] 100 mmol/L 98-107 [facility] Creatinine [Mass/volume] in Serum or PlasmaOrdered By: Zoey Ramirez on 08-17-2022 Creatinine [Mass/Vol] 0.71 mg/dL 0.60-1.20 [facility] Eosinophils Auto (Bld) [#/Vo l]Ordered By: Zoey Ramirez on 08-17-2022 Eosinophils (Bld) [#/Vol] 0.3 10*3/uL 0.0-0.45 [facility] Eosinophils/100 WBC Auto (Bl d)Ordered By: Zoey Ramirez on 08-17-2022 Eosinophils/100 WBC (Bld) 3.1 % . [facility] Erythrocyte distribution wid th Auto (RBC) [Ratio]Ordered By: Zoey Ramirez on 08-17-2022 Erythrocyte distribution width (RBC) [Ratio] 16.5 % 11.9-15.3 [facility] Ferritin [Mass/volume] in Se rum or PlasmaOrdered By: Zoey Ramirez on 08-17-2022 Ferritin [Mass/Vol] 85.3 ng/mL 11.0-306.8 [facility] Folate [Mass/volume] in Seru m or PlasmaOrdered By: Zoey Ramirez on 08-17-2022 Folate [Mass/Vol] 15.1 ng/mL >5.9 [facility] Comment on above: Folate reference ran ge: >5.9 ng/mlThe WHO technical consultation on folate and vitamin [id number] has determined that folate concentrations lessthan 4 ng/ml are considered deficient. Gamma globulin/Protein.total in 24 hour Urine by ElectrophoresisOrdered By: Zoey Ramirez on 08-17-2022 Gamma globulin Elph (24H U) [Mass fraction] 15.3 % . [facility] Globulin Calc (S) [Mass/Vol] Ordered By: Zoey Ramirez on 08-17-2022 Globulin (S) [Mass/Vol] 4.0 g/dL [facility] Glucose [Mass/volume] in Ser um or PlasmaOrdered By: Zoey Ramirez on 08-17-2022 Glucose [Mass/Vol] 142 mg/dL 70-100 [facility] Comment on above: ADA recommended refe rence rangeRandom Glucose Reference Range is dependent on time and content of last meal. Glucose of more than 200 mg/dL in a nonstressed, ambulatory subject supports the diagnosis of Diabetes Mellitus. Hematocrit Auto (Bld) [Volum e fraction]Ordered By: Zoey Ramirez on 08-17-2022 Hematocrit (Bld) [Volume fraction] 41.3 % 34.0-46.4 [facility] Hemoglobin [Mass/volume] in BloodOrdered By: Zoey Ramirez on 08-17-2022 Hemoglobin (Bld) [Mass/Vol] 13.2 g/dL 11.8-15.4 [facility] IgA [Mass/volume] in Serum o r PlasmaOrdered By: Zoey Ramirez on 08-17-2022 IgA [Mass/Vol] 498 mg/dL 87-352 [facility] IgG [Mass/volume] in Serum o r PlasmaOrdered By: Zoey Ramirez on 08-17-2022 IgG [Mass/Vol] 1834 mg/dL 586-1602 [facility] IgM [Mass/volume] in Serum o r PlasmaOrdered By: Zoey Ramirez on 08-17-2022 IgM [Mass/Vol] 124 mg/dL 26-217 [facility] Comment on above: Performed at: [facility] [address] [id number] Director: Jeyson Duncan PhD, Phone: [phone] Immunofixation for UrineOrde red By: Zoey Ramirez on 08-17-2022 Interpretation Immunofixation (U) [Interp] See comment . [facility] Comment on above: No monoclonality det ected.Performed at: [facility] [address] [id number] Director: Jeyson Duncan PhD, Phone: [employer] Immunoglobulin light chains. kappa.free [Mass/volume] in SerumOrdered By: Zoey Ramirez on 08-17-2022 Immunoglobulin light chains.kappa.free (S) [Mass/Vol] 47.1 mg/L 3.3-19.4 [facility] Immunoglobulin light chains. kappa.free/Immunoglobulin light chains.lambda.free [MassOrdered By: Zoey Ramirez on 08-17-2022 Immunoglobulin light chains.kappa.free/Immuno globulin light chains.lambda.free (S) [Mass ratio] 1.65 0.26-1.65 [facility] Comment on above: Performed at: - [address] [id number] Director: Jeyson Duncan PhD, Phone: [phone] Immunoglobulin light chains. lambda.free [Mass/volume] in Serum or PlasmaOrdered By: Zoey Ramirez on 08-17-2022 Immunoglobulin light chains.lambda.free [Mass/Vol] 28.6 mg/L 5.7-26.3 [facility] Iron [Mass/volume] in Serum or PlasmaOrdered By: Zoey Ramirez on 08-17-2022 Iron [Mass/Vol] 41 ug/dL 50-212 [facility] Iron binding capacity [Mass/ volume] in Serum or PlasmaOrdered By: Zoey Ramirez on 08-17-2022 Iron binding capacity [Mass/Vol] 344 ug/dL 255-450 [facility] Iron saturation [Mass Fracti on] in Serum or PlasmaOrdered By: Zoey Ramirez on 08-17-2022 Iron saturation [Mass fraction] 11.9 % 20-50 [facility] Leukocytes [#/volume] correc silverio for nucleated erythrocytes in Blood by Automated counOrdered By: Zoey Ramirez on 08-17-2022 WBC corrected for nucl RBC Auto (Bld) [#/Vol] 9.9 10*3/uL 3.8-11.6 [facility] Lymphocytes Auto (Bld) [#/Vo l]Ordered By: Zoey Ramirez on 08-17-2022 Lymphocytes (Bld) [#/Vol] 2.8 10*3/uL 1.00-4.8 [facility] Lymphocytes/100 WBC Auto (Bl d)Ordered By: Zoey Ramirez on 08-17-2022 Lymphocytes/100 WBC (Bld) 28.5 % . [facility] MCH Auto (RBC) [Entitic mass ]Ordered By: Zoey Ramirez on 08-17-2022 MCH (RBC) [Entitic mass] 24.9 pg 24.7-34.3 [facility] MCHC Auto (RBC) [Mass/Vol]Or dered By: Zoey Ramirez on 08-17-2022 MCHC (RBC) [Mass/Vol] 32.0 g/dL 32.0-35.0 [facility] MCV Auto (RBC) [Entitic vol] Ordered By: Zoey Ramirez on 08-17-2022 MCV (RBC) [Entitic vol] 77.8 fL 80-100 [facility] Monocytes Auto (Bld) [#/Vol] Ordered By: Zoey Ramirez on 08-17-2022 Monocytes (Bld) [#/Vol] 0.6 10*3/uL 0.0-0.8 [facility] Monocytes/100 WBC Auto (Bld) Ordered By: Zoey Ramirez on 08-17-2022 Monocytes/100 WBC (Bld) 5.9 % . [facility] Neutrophils Auto (Bld) [#/Vo l]Ordered By: Zoey Ramirez on 08-17-2022 Neutrophils (Bld) [#/Vol] 6.1 10*3/uL 1.8-7.7 [facility] Neutrophils/100 WBC Auto (Bl d)Ordered By: Zoey Ramirez on 08-17-2022 Neutrophils/100 WBC (Bld) 61.6 % . [facility] No Panel InformationOrdered By: Zoey Ramirez on 08-17-2022 Estimated GFR (CKD-EPI) > 60.0 mL/Min [facility] Creatinine Clearance (Chem 122.85 [facility] Protein Electrophoresis M-Antwan Not observed g/dL Not Observed [facility] Protein Electrophoresis Note See comment . [facility] Comment on above: Protein electrophore sis scan will follow via computer,mail, or application integration architect delivery.Performed at: [address] [id number] Director: Jeyson Duncan PhD, Phone: [phone] Serum Immunofixation Comment: . [facility] Comment on above: Presence of monoclon al protein is unclear at this time. Suggestrepeat in 3 to 6 months if clinically indicated. Urine Random Prot Electrophor Note See comment . [facility] Comment on above: Protein electrophore sis scan will follow via computer,mail, or application integration architect delivery.Performed at: [address] [id number] Director: Jeyson Duncan PhD, Phone: [phone] Nucleated erythrocytes [Pres ence] in Blood by Automated countOrdered By: Zoey Ramirez on 08-17-2022 Nucleated RBC Auto Ql (Bld) 0.1 /100{WBC} 0-0.5 [facility] Platelet mean volume Auto (B ld) [Entitic vol]Ordered By: Zoey Ramirez on 08-17-2022 Platelet mean volume (Bld) [Entitic vol] 8.5 fL 6.3-10.7 [facility] Platelets Auto (Bld) [#/Vol] Ordered By: Zoey Ramirez on 08-17-2022 Platelets (Bld) [#/Vol] 345 10*3/uL 150-450 [facility] Potassium [Moles/volume] in Serum or PlasmaOrdered By: Zoey Ramirez on 08-17-2022 Potassium [Moles/Vol] 4.7 mmol/L 3.5-5.1 [facility] Protein [Mass/volume] in Ser um or PlasmaOrdered By: Zoey Ramirez on 08-17-2022 Protein [Mass/Vol] 8.1 g/dL 6.4-8.9 [facility] Protein [Mass/Vol] 8.0 g/dL 6.0-8.5 [facility] Protein [Mass/volume] in Uri neOrdered By: Zoey Ramirez on 08-17-2022 Protein (U) [Mass/Vol] 75.0 mg/dL Not Estab. [facility] Protein.monoclonal/Protein.t otal in 24 hour Urine by ElectrophoresisOrdered By: Zoey Ramirez on 08-17-2022 Protein.monoclonal Elph (24H U) [Mass fraction] Not observed % Not Observed [facility] RBC Auto (Bld) [#/Vol]Ordere d By: Zoye Ramirez on 08-17-2022 RBC (Bld) [#/Vol] 5.31 10*6/uL 3.60-5.00 [facility] Serum globulin measurement ( mass/volume)Ordered By: Zoey Ramirez on 08-17-2022 Globulin (S) [Mass/Vol] 4.3 g/dL 2.2-3.9 [facility] Serum or plasma albumin/glob ulin mass ratioOrdered By: Zoey Ramirez on 08-17-2022 Albumin/Globulin [Mass ratio] 1.0 {ratio} [facility] Albumin/Globulin [Mass ratio] 0.9 {ratio} 0.7-1.7 [facility] Serum or plasma alpha 1 glob ulin measurement by electrophoresis (mass/volume)Ordered By: Zoey Ramirez on 08-17-2022 Alpha 1 globulin Elph [Mass/Vol] 0.3 g/dL 0.0-0.4 [facility] Serum or plasma alpha 2 glob ulin measurement by electrophoresis (mass/volume)Ordered By: Zoey Ramirez on 08-17-2022 Alpha 2 globulin Elph [Mass/Vol] 0.8 g/dL 0.4-1.0 [facility] Serum or plasma anion gap de terminationOrdered By: Zoey Ramirez on 08-17-2022 Anion gap [Moles/Vol] 12.8 mmol/L 6.0-15.0 [facility] Serum or plasma beta globuli n measurement by electrophoresis (mass/volume)Ordered By: Zoey Ramirez on 08-17-2022 Beta globulin Elph [Mass/Vol] 1.3 g/dL 0.7-1.3 [facility] Serum or plasma gamma globul in measurement by electrophoresis (mass/volume)Ordered By: Zoey Ramirez on 08-17-2022 Gamma globulin Elph [Mass/Vol] 1.9 g/dL 0.4-1.8 [facility] Sodium [Moles/volume] in Ser um or PlasmaOrdered By: Zoey Ramirez on 08-17-2022 Sodium [Moles/Vol] 136 mmol/L 136-145 [facility] Transferrin [Mass/volume] in Serum or PlasmaOrdered By: Zoey Ramirez on 08-17-2022 Transferrin [Mass/Vol] 246 mg/dL 203-362 [facility] Urea nitrogen [Mass/volume] in Serum or PlasmaOrdered By: Zoey Ramirez on 08-17-2022 Urea nitrogen [Mass/Vol] 23 mg/dL 7-25 [facility] Urine alpha 1 globulin/total protein by electrophoresisOrdered By: Zoey Ramirez on 08-17-2022 Alpha 1 globulin Elph (U) [Mass fraction] 4.5 % . [facility] Urine alpha 2 globulin/total protein ratio by electrophoresisOrdered By: Zoey Ramirez on 08-17-2022 Alpha 2 globulin Elph (U) [Mass fraction] 7.7 % . [facility] Urine beta globulin measurem ent by electrophoresis (mass/volume)Ordered By: Zoey Ramirez on 08-17-2022 Beta globulin Elph (U) [Mass/Vol] 12.6 % . [facility] Vitamin B12 ser/plasOrdered By: Zoey Ramirez on 08-17-2022 Cobalamin (Vitamin B12) [Mass/Vol] 387 pg/mL 180-914 [facility] WBC Auto (Bld) [#/Vol]Ordere d By: Zoey Ramirez on 08-17-2022 WBC (Bld) [#/Vol] 9.9 10*3/uL 3.8-11.6 [facility] Established Visit (Orthopaed ic Surgery)on 08-11-2022 [...] do her outpatient physical therapy at [facility]. She has a few visits [...] grammatical areas may persist related to the [employer] software Merrill Alejandro PA-C . Active Problems [...] Aug 11 2022 10:34AM EST (Author) Normal [employer] Albumin [Mass/volume] in Ser um or PlasmaOrdered By: Lorrie Baig on 07-23-2022 Albumin [Mass/Vol] 3.3 g/dL 2.9-4.4 [facility] Creatine kinase [Enzymatic a ctivity/volume] in Serum or PlasmaOrdered By: Lorrie Baig on 07-23-2022 CK [Catalytic activity/Vol] 51 U/L 30-223 [facility] Erythrocyte sedimentation ra te by Photometric methodOrdered By: Lorrie Baig on 07-23-2022 ESR Photometric method (Bld) [Velocity] 65 mm/hr 0-29 [facility] Folate [Mass/volume] in Seru m or PlasmaOrdered By: Lorrie Baig on 07-23-2022 Folate [Mass/Vol] 12.8 ng/mL >5.9 [facility] Comment on above: Folate reference ran ge: >5.9 ng/mlThe WHO technical consultation on folate and vitamin [id number] has determined that folate concentrations lessthan 4 ng/ml are considered deficient. Magnesium [Mass/volume] in S hugo or PlasmaOrdered By: Lorrie Baig on 07-23-2022 Magnesium [Mass/Vol] 1.8 mg/dL 1.9-2.7 [facility] No Panel InformationOrdered By: Lorrie Baig on 07-23-2022 Protein Electrophoresis Interpret See comment . [facility] Comment on above: Faint band in gamma region suspicious for monoclonalimmunoglobulin. This band may represent a benign spike asseen in older people or could be a paraprotein as seen inMultiple Myeloma, Waldenstrom's Macroglobulinemia orLymphoma. Depending on clinical circumstances, furtherdiagnostic studies may include serum immunofixation orserum free light chain quantitation.Performed at: [address] [id number] Director: Jeyson Duncan PhD, Phone: [phone] Protein Electrophoresis M-Antwan Comment: g/dL Not Observed [facility] Comment on above: ASYMMETRICAL GAMMA Protein Electrophoresis Note See comment . [facility] Comment on above: Protein electrophore sis scan will follow via computer,mail, or application integration architect delivery. Phosphate [Mass/volume] in S hugo or PlasmaOrdered By: Lorrie Baig on 07-23-2022 Phosphate [Mass/Vol] 4.5 mg/dL 3.7-7.2 [facility] Protein [Mass/volume] in Ser um or PlasmaOrdered By: Lorrie Baig on 07-23-2022 Protein [Mass/Vol] 7.2 g/dL 6.0-8.5 [facility] Serum globulin measurement ( mass/volume)Ordered By: Lorrie Baig on 07-23-2022 Globulin (S) [Mass/Vol] 3.9 g/dL 2.2-3.9 [facility] Serum or plasma albumin/glob ulin mass ratioOrdered By: Lorrie Baig on 07-23-2022 Albumin/Globulin [Mass ratio] 0.8 {ratio} 0.7-1.7 [facility] Serum or plasma alpha 1 glob ulin measurement by electrophoresis (mass/volume)Ordered By: Lorrie Baig on 07-23-2022 Alpha 1 globulin Elph [Mass/Vol] 0.3 g/dL 0.0-0.4 [facility] Serum or plasma alpha 2 glob ulin measurement by electrophoresis (mass/volume)Ordered By: Lorrie Baig on 07-23-2022 Alpha 2 globulin Elph [Mass/Vol] 0.7 g/dL 0.4-1.0 [facility] Serum or plasma beta globuli n measurement by electrophoresis (mass/volume)Ordered By: Lorrie Baig on 07-23-2022 Beta globulin Elph [Mass/Vol] 1.2 g/dL 0.7-1.3 [facility] Serum or plasma gamma globul in measurement by electrophoresis (mass/volume)Ordered By: Lorrie Baig on 07-23-2022 Gamma globulin Elph [Mass/Vol] 1.7 g/dL 0.4-1.8 [facility] Thyrotropin [Units/volume] i n Serum or PlasmaOrdered By: Lorrie Baig on 07-23-2022 TSH Qn 4.76 m[IU]/L 0.45-5.33 [facility] Vitamin B12 ser/plasOrdered By: Lorrie Baig on 07-23-2022 Cobalamin (Vitamin B12) [Mass/Vol] 358 pg/mL 180-914 [facility] KNEE 3 VIEWSon 07-14-2022 KNEE 3 VIEWS Patient Name: GEETA SHELTON STUDY: KNEE; 3 VIEWS; Right; 07/14/2022 8:47 am INDICATION: pain Z96.659: Status post total knee replacement. ACCESSION NUMBER(S): [id number] ORDERING CLINICIAN: ACOSTA SCHAFER FINDINGS: Right knee three views. Status post revision type total knee replacement components in good position no signs of fracture dislocation or other bony abnormality dee in the soft tissues anteriorly. Electronically signed by: ACOSTA SCHAFER MD [facility] Post Op (Orthopaedic Surgery )on 07-14-2022 Post [...] she will most likely do this at [facility] in [place]. Physical exam General: No acute distress and [...] grammatical areas may persist related to the [employer] software Merrill Alejandro PA-C . Active Problems Problems Acute pain of both knees (338.19,719.46) (M25.561,M25.562) Status post total knee replacement (V43.65) (Z96.659) Allergies Medication Penicillins Recorded By: Tarsha Murray; 05/18/2022 8:47:33 AM Current Meds Medication NameInstruction Xarelto 10 MG Oral TabletTake 1 tablet daily Results/Data Xray Knee 3 [id number] 08:47AMSAcosta steward Test NameResultFlagReference Xray Knee 3 View(Report) FINAL REPORT Interpreted by: ACOSTA SCHAFER BURTON, MD 07/14/22 08:49 Patient Name: GEETA SHELTON STUDY: KNEE; 3 VIEWS; Right; 07/14/2022 8:47 am INDICATION: pain Z96.659: Status post total knee replacement. ACCESSION NUMBER(S): [id number] ORDERING CLINICIAN: ACOSTA SCHAFER FINDINGS: Right knee [...] Radiologyon 07-14-2022 XR Knee 3 Views Normal -[place] [facility] Work Phone: Basic Metabolic Panel Reflex Mgon 07-03-2022 Anion gap [Moles/Vol] 10 mmol/L Normal 9-15 [facility] Comment on above: Performed By: #### B MPX #### [facility] [address] [place] [address] Calcium [Mass/Vol] 9.2 mg/dL Normal 8.5-9.9 [facility] Comment on above: Performed By: #### B MPX #### [facility] [address] [place] [address] Chloride [Moles/Vol] 100 mmol/L Normal 95-107 [facility] Comment on above: Performed By: #### B MPX #### [facility] [address] [place] [address] CO2 [Moles/Vol] 27 mmol/L Normal 20-31 [facility] Comment on above: Performed By: #### B MPX #### [facility] [address] [place] [address] Creatinine [Mass/Vol] 0.51 mg/dL Normal 0.50-0.90 [facility] Comment on above: Performed By: #### B MPX #### [facility] [address] [place] [address] GFR >60.0 Normal >60 [facility] Comment on above: Result Comment: Pedi [...] secretion. Performed By: #### B MPX #### [facility] [address] [place] [address] Glucose [Mass/Vol] 132 mg/dL Critically high 70-99 [facility] Comment on above: Performed By: #### B MPX #### [facility] [address] [place] [address] Magnesium [Moles/Vol] 4.6 mmol/L Normal 3.4-4.9 [facility] Comment on above: Performed By: #### B MPX #### [facility] [address] [place] [address] Sodium [Moles/Vol] 137 mmol/L Normal 135-144 [facility] Comment on above: Performed By: #### B MPX #### [facility] [address] [place] [address] Urea nitrogen [Mass/Vol] 12 mg/dL Normal 6-20 [facility] Comment on above: Performed By: #### B MPX #### [facility] [address] [place] [address] Basic Metabolic Panel w/ Ref hillary to MGon 07-03-2022 Anion gap [Moles/Vol] 10 mmol/L [facility] [employer] Calcium [Mass/Vol] 9.2 mg/dL 8.5 - 9.9 mg/dL [facility] [employer] Chloride [Moles/Vol] 100 mmol/L [facility] [employer] CO2 [Moles/Vol] 27 mmol/L [facility] [employer] Creatinine [Mass/Vol] 0.51 mg/dL 0.50 - 0.90 mg/dL [facility] GFR/1.73 sq M.predicted MDRD (S/P/Bld) [Vol rate/Area] 60 - [facility] Comment on above: Pediatric calculator link https://www.kidney.org/professionals/kdoqi/gfr_calculatorped [...] 132 mg/dL High 70 - 99 mg/dL [facility] Interpretation and review of laboratory results Abnormal [facility] Potassium reflex Magnesium 4.6 [facility] Sodium [Moles/Vol] 137 mmol/L [facility] Urea nitrogen (BldV) [Mass/Vol] 12 mg/dL 6 - 20 mg/dL [facility] CBCon 07-03-2022 Hematocrit (Bld) [Volume fraction] 39.9 % 37.0 - 47.0 % [facility] Hemoglobin (Bld) [Mass/Vol] 12.9 g/dL 12.0 - 16.0 g/dL [facility] Interpretation and review of laboratory results Abnormal [facility] MCH (RBC) [Entitic mass] 25.7 pg Low 27. 0 - 31.3 pg [facility] MCHC (RBC) [Mass/Vol] 32.3 % Low 33.0 - 37.0 % [facility] MCV (RBC) [Entitic vol] 79.6 fL 79.4 - 94.8 fL [facility] Platelet distribution width (Bld) [Ratio] 16.5 % High 11.5 - 14.5 % [facility] Platelets (Bld) [#/Vol] 230 10*3/uL 130 - 400 K/uL [facility] RBC (Bld) [#/Vol] 5.02 10*6/uL [facility] WBC (Bld) [#/Vol] 9.2 10*3/uL 4.8 - 10.8 K/uL [facility] CBC With Platelet No Differe ntialon 07-03-2022 Erythrocyte distribution width (RBC) [Ratio] 16.5 % Critically high 11.5-14.5 [facility] Comment on above: Performed By: #### C BCND #### [facility] [address] [place] [address] Hematocrit (Bld) [Volume fraction] 39.9 % Normal 37.0-47.0 [facility] Comment on above: Performed By: #### C BCND #### [facility] [address] [place] [address] Hemoglobin (Bld) [Mass/Vol] 12.9 g/dL Normal 12.0-16.0 [facility] Comment on above: Performed By: #### C BCND #### [facility] [address] [place] [address] MCH (RBC) [Entitic mass] 25.7 pg Low 27.0-31.3 [facility] Comment on above: Performed By: #### C BCND #### [facility] [address] [place] [address] MCHC 32.3 % Low 33.0-37.0 [facility] Comment on above: Performed By: #### C BCND #### [facility] [address] [place] [address] MCV (RBC) [Entitic vol] 79.6 fL Normal 79.4-94.8 [facility] Comment on above: Performed By: #### C BCND #### [facility] [address] [place] [address] Platelets (Bld) [#/Vol] 230 10*3/uL Normal 130-400 [facility] Comment on above: Performed By: #### C BCND #### [facility] [address] [place] [address] RBC (Bld) [#/Vol] 5.02 10*6/uL Normal 4.20-5.40 [facility] Comment on above: Performed By: #### C BCND #### [facility] [address] [place] [address] WBC (Bld) [#/Vol] 9.2 10*3/uL Normal 4.8-10.8 [facility] Comment on above: Performed By: #### C BCND #### [facility] [address] [place] [place] [address] Basic Metabolic Panel Reflex Mgon 07-02-2022 Anion gap [Moles/Vol] 8 mmol/L Low 9-15 [facility] Comment on above: Order Comment: Daja ction has been rescheduled by HERAM at 07/02/2022 05:49 Reason: Come back last per rn fouzia Performed By: #### B MPX #### [facility] [address] [place] [address] Calcium [Mass/Vol] 8.9 mg/dL Normal 8.5-9.9 [facility] Comment on above: Order Comment: Daja ction has been rescheduled by HERAM at 07/02/2022 05:49 Reason: Come back last per rn fouzia Performed By: #### B MPX #### [facility] [address] [place] [address] Chloride [Moles/Vol] 100 mmol/L Normal 95-107 [facility] Comment on above: Order Comment: Daja ction has been rescheduled by HERAM at 07/02/2022 05:49 Reason: Come back last per rn fouzia Performed By: #### B MPX #### [facility] [address] [place] [address] CO2 [Moles/Vol] 27 mmol/L Normal 20-31 [facility] Comment on above: Order Comment: Daja ction has been rescheduled by HERAM at 07/02/2022 05:49 Reason: Come back last per rn fouzia Performed By: #### B MPX #### [facility] [address] [place] [address] Creatinine [Mass/Vol] 0.61 mg/dL Normal 0.50-0.90 [facility] Comment on above: Order Comment: Daja ction has been rescheduled by HERAM at 07/02/2022 05:49 Reason: Come back last per rn fouzia Performed By: #### B MPX #### [facility] [address] [place] [address] GFR >60.0 Normal >60 [facility] Comment on above: Order Comment: [...] secretion. Performed By: #### B MPX #### [facility] [address] [place] [address] Glucose [Mass/Vol] 144 mg/dL Critically high 70-99 [facility] Comment on above: Order Comment: Daja zamarripa has been rescheduled by HERAM at 07/02/2022 05:49 Reason: Come back last per kip reinoso Performed By: #### B MPX #### [facility] [address] [place] [address] Magnesium [Moles/Vol] 4.8 mmol/L Normal 3.4-4.9 [facility] Comment on above: Order Comment: Daja zamarripa has been rescheduled by HERAM at 07/02/2022 05:49 Reason: Come back last per kip reinoso Performed By: #### B MPX #### [facility] [address] [place] [address] Sodium [Moles/Vol] 135 mmol/L Normal 135-144 [facility] Comment on above: Order Comment: Daja ction has been rescheduled by HERAM at 07/02/2022 05:49 Reason: Come back last per kip reinoso Performed By: #### B MPX #### [facility] [address] [place] [address] Urea nitrogen [Mass/Vol] 21 mg/dL Critically high 6-20 [facility] Comment on above: Order Comment: Daja ction has been rescheduled by HERAM at 07/02/2022 05:49 Reason: Come back last per kip reinoso Performed By: #### B MPX #### [facility] [address] [place] [address] Basic Metabolic Panel w/ Ref hillary to MGon 07-02-2022 Anion gap [Moles/Vol] 8 mmol/L Low [facility] Calcium [Mass/Vol] 8.9 mg/dL 8.5 - 9.9 mg/dL [facility] Chloride [Moles/Vol] 100 mmol/L [facility] CO2 [Moles/Vol] 27 mmol/L [facility] Creatinine [Mass/Vol] 0.61 mg/dL 0.50 - 0.90 mg/dL [facility] GFR/1.73 sq M.predicted MDRD (S/P/Bld) [Vol rate/Area] 60 - PINF [facility] Comment on above: Pediatric calculator link https://www.kidney.org/professionals/kdoqi/gfr_calculatorped [...] 144 mg/dL High 70 - 99 mg/dL [facility] Interpretation and review of laboratory results Abnormal [facility] Potassium reflex Magnesium 4.8 [facility] Sodium [Moles/Vol] 135 mmol/L [facility] Urea nitrogen (BldV) [Mass/Vol] 21 mg/dL High 6 - 20 mg/dL [facility] Collection has been rescheduled by VALDO at 07/02/2022 05:49 Reason: Come back last per kip reinoso [facility] CBCon 07-02-2022 Hematocrit (Bld) [Volume fraction] 40.3 % 37.0 - 47.0 % [facility] Hemoglobin (Bld) [Mass/Vol] 12.9 g/dL 12.0 - 16.0 g/dL [facility] Interpretation and review of laboratory results Abnormal [facility] MCH (RBC) [Entitic mass] 25.5 pg Low 27. 0 - 31.3 pg [facility] MCHC (RBC) [Mass/Vol] 32.1 % Low 33.0 - 37.0 % [facility] MCV (RBC) [Entitic vol] 79.6 fL 79.4 - 94.8 fL [facility] Platelet distribution width (Bld) [Ratio] 16.3 % High 11.5 - 14.5 % [facility] Platelets (Bld) [#/Vol] 230 10*3/uL 130 - 400 K/uL [facility] RBC (Bld) [#/Vol] 5.06 10*6/uL [facility] WBC (Bld) [#/Vol] 9.1 10*3/uL 4.8 - 10.8 K/uL [facility] Collection has been rescheduled by VALDO at 07/02/2022 05:49 Reason: Come back last per kip galdamezfouzia [facility] CBC With Platelet No Differe ntialon 07-02-2022 Erythrocyte distribution width (RBC) [Ratio] 16.3 % Critically high 11.5-14.5 [facility] Comment on above: Order Comment: Daja zamarripa has been rescheduled by VALDO at 07/02/2022 05:49 Reason: Come back last per kip reinoso Performed By: #### C BCND #### [facility] [address] [place] [address] Hematocrit (Bld) [Volume fraction] 40.3 % Normal 37.0-47.0 [facility] Comment on above: Order Comment: Daja zamarripa has been rescheduled by VALDO at 07/02/2022 05:49 Reason: Come back last per kip reinoso Performed By: #### C BCND #### [facility] [address] [place] [address] Hemoglobin (Bld) [Mass/Vol] 12.9 g/dL Normal 12.0-16.0 [facility] Comment on above: Order Comment: Daja zamarripa has been rescheduled by HERAM at 07/02/2022 05:49 Reason: Come back last per rn fouzia Performed By: #### C BCND #### [facility] [address] [place] [address] MCH (RBC) [Entitic mass] 25.5 pg Low 27.0-31.3 [facility] Comment on above: Order Comment: Daja zamarripa has been rescheduled by HERAM at 07/02/2022 05:49 Reason: Come back last per rn fouzia Performed By: #### C BCND #### [facility] [address] [place] [address] MCHC 32.1 % Low 33.0-37.0 [facility] Comment on above: Order Comment: Daja zamarripa has been rescheduled by HERAM at 07/02/2022 05:49 Reason: Come back last per rn fouzia Performed By: #### C BCND #### [facility] [address] [place] [address] MCV (RBC) [Entitic vol] 79.6 fL Normal 79.4-94.8 [facility] Comment on above: Order Comment: Daja zamarripa has been rescheduled by HERAM at 07/02/2022 05:49 Reason: Come back last per rn fouzia Performed By: #### C BCND #### [facility] [address] [place] [address] Platelets (Bld) [#/Vol] 230 10*3/uL Normal 130-400 [facility] Comment on above: Order Comment: Daja zamarripa has been rescheduled by HERAM at 07/02/2022 05:49 Reason: Come back last per rn fouzia Performed By: #### C BCND #### [facility] [address] [place] [address] RBC (Bld) [#/Vol] 5.06 10*6/uL Normal 4.20-5.40 [facility] Comment on above: Order Comment: Daja zamarripa has been rescheduled by HERAM at 07/02/2022 05:49 Reason: Come back last per rn fouzia Performed By: #### C BCND #### [facility] [address] [place] [address] WBC (Bld) [#/Vol] 9.1 10*3/uL Normal 4.8-10.8 [facility] Comment on above: Order Comment: Daja zamarripa has been rescheduled by HERAM at 07/02/2022 05:49 Reason: Come back last per rn fouzia Performed By: #### C BCND #### [facility] [address] [place] [address] US DUP UPPER EXTREMITY LEFT VENOUSon 07-02-2022 [...] Jean Sifuentes MD 07/02/22 Final result [facility] No evidence of DVT. PO TAR HEEL RADIOLOGY EXAMINATION: VENOUS ULTRASOUND OF THE LEFT [...] normal color flow study and spectral analysis. [facility] RADI[facility] Jean Sifuentes MD - 07/02/2022 [...] spectral analysis. IMPRESSION: No evidence of DVT. [employer] Phone: [employer] Phone: Radiology Study observation (narrative) [employer] Phone: XR KNEE RIGHT (1-2 VIEWS)on 07-01-2022 [...] Jean Sifuentes MD 07/01/22 Final result Normal [facility] Normal postsurgical appearance [facility] RADIOLOGY EXAMINATION: TWO XRAY VIEWS OF [...] are intact. Overlying surgical dee are seen [facility] Jean Sifuentes MD - 07/01/2022 [...] dee are seen IMPRESSION: Normal postsurgical appearance [employer] Work Phone: Radiology Study observation (narrative) [employer] Work Phone: XR KNEE RIGHT (1-2 VIEWS)Ord ered By: Jean Sifuentes on 07-01-2022 [employer] Work Phone: MRSA DNA Probe, Nasalon MRSA, DNA, Nasal Negative NEG [employer] Comment on above: NEGATIVE: MRSA DNA n ot detected by nucleic acid amplification. Results should be used as an adjunct to nosocomial control efforts to identify patients needing enhanced precautions. The test is not intended to identify patients with staphylococcal infections. Results should not be used to guide or monitor treatment for MRSA infections. [employer] [address] [place] [id number] Specimen Description Swab [employer] [facility] MRSA, DNA, Nasalon MRSA, DNA, Nasal Negative Normal [facility] Comment on above: Result Comment: NEGA TIVE: MRSA DNA not detected by nucleic acid amplification. Results should be used as an adjunct to nosocomial control efforts to identify patients needing enhanced precautions. The test is not intended to identify patients with staphylococcal infections. Results should not be used to guide or monitor treatment for MRSA infections. [employer] [address], [place] [address] ([phone] Performed By: #### I MRSA #### [facility] [address] [place] [address] EKG 12 LeadOrdered By: Leigh Ann Nash on 06-25-2022 Atrial Rate 73 BPM [employer] Work Phone: P [place] 33 degrees [facility] [employer] Work Phone: P-R Interval 160 ms [employer] Work Phone: Q-T Interval 406 ms [employer] Work Phone: QRS Duration 102 ms [employer] Work Phone: QTc Calculation (Bazett) 447 ms [employer] Work Phone: R [place] 74 degrees [employer] Work Phone: T [place] 65 degrees [employer] Work Phone: Ventricular Rate 73 BPM [facility] [employer] Work Phone: [employer] Work Phone: [phone] EKG 12 Leadon 06-25-2022 Normal sinus rhythm Incomplete right bundle branch block Confirmed by LEIGH ANN NASH ([id number]) on 06/25/2022 6:49:48 PM Leigh Ann Sumner F, DO - 06/25/2022 Normal sinus rhythm Incomplete right bundle branch block Confirmed by LEIGH ANN NASH ([id number]) on 06/25/2022 6:49:48 PM [employer] Work Phone: Established Visit (Orthopaed ic Surgery)on 06-25-2022 Established Visit (Orthopaedic Surgery) Chief Complaint Pre-op RT TK-Revision 07/01/22 @ [facility] History of Present Illness This [...] plans on performing outpatient physical therapy at [facility] in [place]. All of the patient's questions and concerns were answered. This note was prepared using voice recognition software. The details of this note are correct and have been reviewed, and corrected to the best of my ability. Some grammatical areas may persist related to the [employer] software Merrill Alejandro PA-C . Active Problems Problems Acute pain of both knees (338.19,719.46) (M25.561,M25.562) Allergies Medication Penicillins Recorded By: Tarsha Murray; 05/18/2022 8:47:33 AM Signatures Electronically signed by : Merrill Alejandro PA-C; Jun 25 2022 2:21PM EST (Author) Normal bookletmobile PT Initial Evaluationon 03-0 PT Initial Evaluation [...] today's treatment with some difficulty. Evaluation Code: 23808 PT Eval: Low Complexity, 32 min(s). Resources provided today: education Signatures Electronically signed by : Natali Tyson, PT DPT; Jun 30 2022 10:08AM EST (Author) Normal [employer] APTTon 06-24-2022 aPTT Coag (Bld) [Time] 30.1 s [facility] Comment on above: Effective 02/27/2020: Heparin Therapeutic Range: 64.0 98.0 seconds. [facility] CBC With Platelet and Differ entialon 06-24-2022 Basophils (Bld) [#/Vol] 0.1 10*3/uL Normal 0.0-0.2 [facility] Comment on above: Performed By: #### C BCWD #### [facility] [address] [place] [address] Basophils/100 WBC (Bld) 0.6 % Normal [facility] Comment on above: Performed By: #### C BCWD #### [facility] [address] [place] [address] Eosinophils (Bld) [#/Vol] 0.1 10*3/uL Normal 0.0-0.7 [facility] Comment on above: Performed By: #### C BCWD #### [facility] [address] [place] [address] Eosinophils/100 WBC (Bld) 1.6 % Normal [facility] Comment on above: Performed By: #### C BCWD #### [facility] [address] [place] [address] Erythrocyte distribution width (RBC) [Ratio] 16.4 % Critically high 11.5-14.5 [facility] Comment on above: Performed By: #### C BCWD #### [facility] [address] [place] [address] Hematocrit (Bld) [Volume fraction] 44.4 % Normal 37.0-47.0 [facility] Comment on above: Performed By: #### C BCWD #### [facility] [address] [place] [address] Hemoglobin (Bld) [Mass/Vol] 14.2 g/dL Normal 12.0-16.0 [facility] Comment on above: Performed By: #### C BCWD #### [facility] [address] [place] [address] Lymphocytes (Bld) [#/Vol] 2.3 10*3/uL Normal 1.0-4.8 [facility] Comment on above: Performed By: #### C BCWD #### [facility] [address] [place] [address] Lymphocytes/100 WBC (Bld) 25.8 % Normal [facility] Comment on above: Performed By: #### C BCWD #### [facility] [address] [place] [address] MCH (RBC) [Entitic mass] 25.1 pg Low 27.0-31.3 [facility] Comment on above: Performed By: #### C BCWD #### [facility] [address] [place] [address] MCHC 32.0 % Low 33.0-37.0 [facility] Comment on above: Performed By: #### C BCWD #### [facility] [address] [place] [address] MCV (RBC) [Entitic vol] 78.5 fL Low 79.4-94.8 [facility] Comment on above: Performed By: #### C BCWD #### [facility] [address] [place] [address] Monocytes (Bld) [#/Vol] 0.8 10*3/uL Normal 0.2-0.8 [facility] Comment on above: Performed By: #### C BCWD #### [facility] [address] [place] [address] Monocytes/100 WBC (Bld) 9.4 % Normal [facility] Comment on above: Performed By: #### C BCWD #### [facility] [address] [place] [address] Neutrophils (Bld) [#/Vol] 5.6 10*3/uL Normal 1.4-6.5 [facility] Comment on above: Performed By: #### C BCWD #### [facility] [address] [place] [address] Neutrophils/100 WBC (Bld) 62.6 % Normal [facility] Comment on above: Performed By: #### C BCWD #### [facility] [address] [place] [address] Platelets (Bld) [#/Vol] 281 10*3/uL Normal 130-400 [facility] Comment on above: Performed By: #### C BCWD #### [facility] [address] [place] [address] RBC (Bld) [#/Vol] 5.66 10*6/uL Critically high 4.20-5.40 [facility] Comment on above: Performed By: #### C BCWD #### [facility] [address] [place] [address] WBC (Bld) [#/Vol] 8.9 10*3/uL Normal 4.8-10.8 [facility] Comment on above: Performed By: #### C BCWD #### [facility] [address] [place] [address] CBC with Auto Differentialon 06-24-2022 Basophils (Bld) [#/Vol] 0.1 10*3/uL 0.0 - 0.2 K/uL [facility] Basophils/100 WBC (Bld) 0.6 % [facility] Eosinophils (Bld) [#/Vol] 0.1 10*3/uL 0.0 - 0.7 K/uL [facility] Eosinophils/100 WBC (Bld) 1.6 % [facility] Hematocrit (Bld) [Volume fraction] 44.4 % 37.0 - 47.0 % [facility] Hemoglobin (Bld) [Mass/Vol] 14.2 g/dL 12.0 - 16.0 g/dL [facility] Interpretation and review of laboratory results Abnormal [facility] Lymphocytes (Bld) [#/Vol] 2.3 10*3/uL 1.0 - 4.8 K/uL [facility] Lymphocytes/100 WBC (Bld) 25.8 % [facility] MCH (RBC) [Entitic mass] 25.1 pg Low 27. 0 - 31.3 pg [facility] MCHC (RBC) [Mass/Vol] 32.0 % Low 33.0 - 37.0 % [facility] MCV (RBC) [Entitic vol] 78.5 fL Low 79.4 - 94.8 fL [facility] Monocytes (Bld) [#/Vol] 0.8 10*3/uL 0.2 - 0.8 K/uL [facility] Monocytes/100 WBC (Bld) 9.4 % [facility] Neutrophils Absolute 5.6 K/uL 1.4 - 6 .5 K/uL [facility] Neutrophils/100 WBC (Bld) 62.6 % [facility] Platelet distribution width (Bld) [Ratio] 16.4 % High 11.5 - 14.5 % [facility] Platelets (Bld) [#/Vol] 281 10*3/uL 130 - 400 K/uL [facility] RBC (Bld) [#/Vol] 5.66 10*6/uL High [facility] WBC (Bld) [#/Vol] 8.9 10*3/uL 4.8 - 10.8 K/uL [facility] Comprehensive Metabolic Pane gretel 03-02-2023 Albumin [Mass/Vol] 4.2 g/dL Normal 3.5-4.6 [facility] Comment on above: Performed By: #### U MARIA ELENA #### [facility] [address] [place] [address] ALP [Catalytic activity/Vol] 89 U/L Normal 40-130 [facility] Comment on above: Performed By: #### U MARAI ELENA #### [facility] [address] [place] [address] ALT [Catalytic activity/Vol] 47 U/L Critically high 0-33 [facility] Comment on above: Performed By: #### U MARIA ELENA #### [facility] [address] [place] [address] Anion gap [Moles/Vol] 13 mmol/L Normal 9-15 [facility] Comment on above: Performed By: #### U MARIA ELENA #### [facility] [address] [place] [address] AST [Catalytic activity/Vol] 44 U/L Critically high 0-35 [facility] Comment on above: Performed By: #### U MARIA ELENA #### [facility] [address] [place] [address] Bilirubin [Mass/Vol] 0.5 mg/dL Normal 0.2-0.7 [facility] Comment on above: Performed By: #### U MARIA ELENA #### [facility] [address] [place] [address] Calcium [Mass/Vol] 9.2 mg/dL Normal 8.5-9.9 [facility] Comment on above: Performed By: #### U MARIA ELENA #### [facility] [address] [place] [address] Chloride [Moles/Vol] 100 mmol/L Normal 95-107 [facility] Comment on above: Performed By: #### U MARIA ELENA #### [facility] [address] [place] [address] CO2 [Moles/Vol] 26 mmol/L Normal 20-31 [facility] Comment on above: Performed By: #### U MARIA ELENA #### [facility] [address] [place] [address] Creatinine [Mass/Vol] 0.54 mg/dL Normal 0.50-0.90 [facility] Comment on above: Performed By: #### U MARIA ELENA #### [facility] [address] [place] [address] GFR >60.0 Normal >60 [facility] Comment on above: Result Comment: Pedi [...] Performed By: #### U MARIA ELENA #### [facility] [address] [place] [address] Globulin (S) [Mass/Vol] 3.9 g/dL Critically high 2.3-3.5 [facility] Comment on above: Performed By: #### U MARIA ELENA #### [facility] [address] [place] [address] Glucose [Mass/Vol] 124 mg/dL Critically high 70-99 [facility] Comment on above: Performed By: #### U MARIA ELENA #### [facility] [address] [place] [address] Potassium [Moles/Vol] 4.4 mmol/L Normal 3.4-4.9 [facility] Comment on above: Performed By: #### U MARIA ELENA #### [facility] [address] [place] [address] Protein [Mass/Vol] 8.1 g/dL Critically high 6.3-8.0 [facility] Comment on above: Performed By: #### U MARIA ELENA #### [facility] [address] [place] [address] Sodium [Moles/Vol] 139 mmol/L Normal 135-144 [facility] Comment on above: Performed By: #### U MARIA ELENA #### [facility] [address] [place] [address] Urea nitrogen [Mass/Vol] 14 mg/dL Normal 6-20 [facility] Comment on above: Performed By: #### U MARIA ELENA #### [facility] [address] [place] [address] Albumin [Mass/Vol] 4.2 g/dL 3.5 - 4.6 g/dL [facility] ALP (Bld) [Catalytic activity/Vol] 89 U/L 40 - 130 U/L [facility] ALT [Catalytic activity/Vol] 47 U/L High 0 - 33 U/L [facility] Anion gap [Moles/Vol] 13 mmol/L [facility] AST [Catalytic activity/Vol] 44 U/L High 0 - 35 U/L [facility] Bilirubin [Mass/Vol] 0.5 mg/dL 0.2 - 0 .7 mg/dL [facility] Calcium [Mass/Vol] 9.2 mg/dL 8.5 - 9.9 mg/dL [facility] Chloride [Moles/Vol] 100 mmol/L [facility] CO2 [Moles/Vol] 26 mmol/L [facility] Creatinine [Mass/Vol] 0.54 mg/dL 0.50 - 0.90 mg/dL [facility] GFR/1.73 sq M.predicted MDRD (S/P/Bld) [Vol rate/Area] 60 - PINF [facility] Comment on above: Pediatric calculator link https://www.kidney.org/professionals/kdoqi/gfr_calculatorped [...] 3.9 g/dL High 2.3 - 3.5 g/dL [facility] Glucose [Mass/Vol] 124 mg/dL High 70 - 99 mg/dL [facility] Interpretation and review of laboratory results Abnormal [facility] Potassium [Moles/Vol] 4.4 mmol/L [facility] Protein [Mass/Vol] 8.1 g/dL High 6.3 - 8.0 g/dL [facility] Sodium [Moles/Vol] 139 mmol/L [facility] Urea nitrogen (BldV) [Mass/Vol] 14 mg/dL 6 - 20 mg/dL [facility] Laboratory - Coagulationon 0 06-24-2022 INR Coag (Bld) [Relative time] 1.1 {INR} Normal [facility] Work Phone: Laboratory - Hematology and Cell countson 06-24-2022 Basophils/100 WBC (Bld) 0.6 % Normal [facility] Work Phone: Eosinophils/100 WBC (Bld) 1.6 % Normal [facility] Work Phone: Lymphocytes/100 WBC (Bld) 25.8 % Normal [facility] Work Phone: Monocytes/100 WBC (Bld) 9.4 % [facility] Work Phone: Neutrophils/100 WBC (Bld) 62.6 % Normal [facility] Work Phone: [phone] MRSA, DNA, Nasalon 3 Specimen Description Swab Normal [facility] Comment on above: Performed By: #### I MRSA #### [facility] [address] [place] [address] Microscopic Urinalysison Bacteria, UA FEW Abnormal Negative /HPF [facility] Epithelial Cells, UA 0-2 [facility] Hyaline Casts, UA 0-1 [facility] RBC, UA 0-2 [facility] WBC, UA 3-5 [facility] No Panel Informationon 06-24 Interpretation and review [...] [facility] Work Phone: Yellow Normal [place] [facility] Work Phone: 0-2 Normal 0-5 [facility] Work Phone: 3-5 Normal 0-5 [facility] Work Phone: 0-1 Normal 0-5 [facility] Work Phone: FEW Abnormal Negative [facility] Work Phone: [phone] K/uL Normal 130-400 [facility] Work Phone: 16.4 % above high threshold 11.5-14.5 [facility] Work Phone: [phone] 32.0 % below low threshold 33.0-37.0 [facility] Work Phone: [phone] 0.1 K/uL Normal 0.0-0.2 [facility] Work Phone: [phone] 0.8 K/uL Normal 0.2-0.8 [facility] Work Phone: [phone] 2.3 K/uL Normal 1.0-4.8 [facility] Work Phone: [phone] 5.6 K/uL Normal 1.4-6.5 [facility] Work Phone: [phone] 25.1 pg below low threshold 27.0-31.3 [facility] Work Phone: [phone] 78.5 fL below low threshold 79.4-94.8 [facility] Work Phone: [phone] 44.4 % Normal 37.0-47.0 [facility] Work Phone: 14.2 g/dL Normal 12.0-16.0 [facility] Work Phone: 5.66 {M/uL} above high threshold 4.20-5.40 [facility] Work Phone: [phone] 8.9 K/uL Normal 4.8-10.8 [facility] Work Phone: [phone] 14.8 {sec} Normal 12.3-14.9 [facility] Work Phone: 30.1 {sec} Normal 24.4-36.8 [facility] Work Phone: Comment on above: Effective 02/27/2020: Heparin Therapeutic Range: 64.0 ? 98.0 seconds. 4.2 g/dL Normal 3.5-4.6 [facility] Work Phone: [phone] 3.9 g/dL above high threshold 2.3-3.5 [facility] Work Phone: 44 U/L above high threshold 0-35 [facility] Work Phone: [phone] U/L above high threshold 0-33 [facility] Work Phone: 89 U/L Normal 40-130 [facility] Work Phone: [phone] 0.5 mg/dL Normal 0.2-0.7 [facility] Work Phone: [phone] 8.1 g/dL above high threshold 6.3-8.0 [facility] Work Phone: [phone] 9.2 mg/dL Normal 8.5-9.9 [facility] Work Phone: [phone] >60.0 Normal >60 [facility] Work Phone: [phone] Comment on above: Pediatric calculator linkhttps://www.kidney.org/professionals/kdoqi/gfr_calculator [...] [employer] Work Phone: 13 {mEq/L} Normal 9-15 [facility] Work Phone: 26 {mEq/L} Normal 20-31 [facility] Work Phone: 100 {mEq/L} Normal 95-107 [facility] Work Phone: 4.4 {mEq/L} Normal 3.4-4.9 [facility] Work Phone: 139 {mEq/L} Normal 135-144 [facility] [facility] [employer] Work Phone: Negative Normal NEG [facility] [employer] Work Phone: Comment on above: NEGATIVE: MRSA DNA n ot detected by nucleic acid amplification. Results should be used as an adjunct to nosocomial control efforts toidentify patients needing enhanced precautions.The test is not intended to identify patients with staphylococcalinfections. Results should not be used to guide or monitor treatmentfor MRSA infections.[facility] [employer] [facility] [place] [address] Swab Normal [facility] Work Phone: Partial Thromboplastin Timeo n 06-24-2022 aPTT Coag (Bld) [Time] 30.1 s Normal 24.4-36.8 [facility] Comment on above: Result Comment: Effe ctive 02/27/2020: Heparin Therapeutic Range: 64.0 ? 98.0 seconds. Performed By: #### U MARIA ELENA #### [facility] [address] [place] [address] Prothrombin Timeon 3 INR Coag (PPP) [Relative time] 1.1 {INR} [facility] Comment on above: Performed By: #### P T #### [facility] [address] [place] [address] PT Coag (PPP) [Time] 14.8 s Normal 12.3-14.9 [facility] Comment on above: Performed By: #### P T #### [facility] [address] [place] [address] Protime-INRon 06-24-2022 INR Coag (Bld) [Relative time] 1.1 {INR} [facility] PT Coag (PPP) [Time] 14.8 s [facility] [employer] TYPE AND SCREENon 06-24-2022 ABO/Rh Negative [facility] Comment on above: @06/24/22 14:01 by Elaina FISCHER: BACK TYPE CONFIRMED IN TUBE. LMB Confirmation type ne eds to be drawn. [facility] Type and 3 cell Screen OB Ca ptureon 06-24-2022 Type and 3 cell Screen OB Capture PATIENT: PINKY Prince LOC: [place]# : [id number] : 1970 SEX: F ORDERED BY: GILMAR COX ORDERED : 06/24/2022 11:08 COLLECTED: 06/24/2022 11:45 ORDER : [id number] RECEIVED : 06/24/2022 11:45 Confirmation type needs to be drawn. --- TEST NAME RESULT UNITS RANGES ABN FL ST ABORH Capture A NEG F @06/24/22 14:01 by RUDY: BACK TYPE CONFIRMED IN TUBE. LMB Antibody 3 Cell Scrn Captu NEG F -- Normal [facility] Comment on above: Performed By: #### T SO3C #### [facility] [address] [place] [address] Urinalysis with Reflex to Cu ltureon 06-24-2022 Bilirubin Urine Negative Negative [facility] Blood, Urine Negative Negative [facility] Clarity, UA Clear Clear [facility] Color, UA Yellow Straw/[place] [facility] Glucose, Ur Negative Negative mg/dL [facility] Ketones Ql (U) Negative Negative mg/dL [facility] Leukocyte esterase Test strip Ql (U) TRACE Abnormal Negative [facility] Nitrite, Urine Negative Negative [facility] pH, UA 7.0 5.0 - 9.0 [facility] Protein (U) [Mass/Vol] 30 mg/dL Abnormal Negative [facility] Specific [place], UA 1.010 1.005 - 1.030 [facility] Urine Reflex to Culture Not Indicated [facility] Urobilinogen, Urine 0.2 NINF [facility] Urinalysis, reflex to cultur gurinder 06-24-2022 Urine Reflexed to Culture Not Indicated [facility] Comment on above: Performed By: #### U AR #### [facility] [address] [place] [address] Bilirubin Ql (U) Negative Normal Negative [facility] Comment on above: Performed By: #### U AR #### [facility] [address] [place] [address] Clarity (U) Clear Normal Clear [facility] Comment on above: Performed By: #### U AR #### [facility] [address] [place] [address] Color (U) Yellow Normal [facility] Comment on above: Performed By: #### U AR #### [facility] [address] [place] [address] Glucose Ql (U) Negative Normal Negative [facility] Comment on above: Performed By: #### U AR #### [facility] [address] [place] [address] Hemoglobin Ql (U) Negative Normal Negative [facility] Comment on above: Performed By: #### U AR #### [facility] [address] [place] [address] Ketones Ql (U) Negative Normal Negative [facility] Comment on above: Performed By: #### U AR #### [facility] [address] [place] [address] Leukocyte esterase Test strip Ql (U) TRACE Abnormal Negative [facility] Comment on above: Performed By: #### U AR #### [facility] [address] [place] [address] Nitrite Ql (U) Negative Normal Negative [facility] Comment on above: Performed By: #### U AR #### [facility] [address] [place] [address] pH (U) 7.0 [pH] Normal 5.0-9.0 [facility] Comment on above: Performed By: #### U AR #### [facility] [address] [place] [address] Protein Ql (U) 30 mg/dL Abnormal Negative [facility] Comment on above: Performed By: #### U AR #### [facility] [address] [place] [address] Specific gravity (U) [Rel density] 1.010 Normal 1.005-1.03 [facility] Comment on above: Performed By: #### U AR #### [facility] [address] [place] [address] Urobilinogen Qn (U) 0.2 {Reji'U}/dL Normal < 2.0 [facility] Comment on above: Performed By: #### U AR #### [facility] [address] [place] [address] Urine Microscopicon 06-25-19 23 Urine Bacteria FEW Abnormal Negative [facility] Comment on above: Performed By: #### U MARIA ELENA #### [facility] [address] [place] [address] Urine Epithelial Cells Auto 0-2 Normal 0-5 [facility] Comment on above: Performed By: #### U MARIA ELENA #### [facility] [address] [place] [address] Urine Hyaline Casts Auto 0-1 Normal 0-5 [facility] Comment on above: Performed By: #### U MARIA ELENA #### [facility] [address] [place] [address] Urine RBC Auto 0-2 Normal 0-5 [facility] Comment on above: Performed By: #### U MARIA ELENA #### [facility] [address] [place] [address] Urine WBC Auto 3-5 Normal 0-5 [facility] Comment on above: Performed By: #### U MARIA ELENA #### [facility] [address] [place] [address] BILATERAL KNEE COMPLT, 4 OR MORE VIEWSon 05-18-2022 BILATERAL KNEE COMPLT, 4 OR MORE VIEWS Patient Name: GEETA SHELTON STUDY: BILATERAL KNEE; COMPLT, 4 OR MORE VIEWS; ; 05/18/2022 9:07 am INDICATION: pain M25.561: Acute pain of both knees M25.562:. ACCESSION NUMBER(S): [id number] ORDERING CLINICIAN: ACOSTA SCHAFER FINDINGS: Weightbearing four [...] abnormalities Electronically signed by: ACOSTA SCHAFER MD [facility] Initial Visit (Orthopaedic S urgery)on 05-18-2022 Initial Visit (Orthopaedic Surgery) Diagnoses/Problems Assessed Acute pain of both knees (338.19,719.46) (M25.561,M25.562) Orders Acute pain of both knees Xray Knee Bilateral, Complete, 4 or More Views; Status:Resulted - Preliminary; Done: [id number] 09:07AM Radiologist to Determine Optimal Study : [...] Radiologyon 05-18-2022 XR Knee 4 Views Normal -[place] [facility] Work Phone: Albumin [Mass/volume] in Ser um or PlasmaOrdered By: [place] Alvarado on 05-07-2022 Albumin [Mass/Vol] 3.9 g/dL 3.2-5.5 [facility] Alkaline phosphatase [Enzyma tic activity/volume] in Serum or PlasmaOrdered By: [place] Alvarado on 05-07-2022 ALP [Catalytic activity/Vol] 83 U/L 32-92 [facility] Aspartate aminotransferase [ Enzymatic activity/volume] in Serum or PlasmaOrdered By: [place] Alvarado on 05-07-2022 AST [Catalytic activity/Vol] 56 U/L 10-42 [facility] Basophils Auto (Bld) [#/Vol] Ordered By: [place] Alvarado on 05-07-2022 Basophils (Bld) [#/Vol] 0.1 10*3/uL 0.0-0.2 [facility] Basophils/100 WBC Auto (Bld) Ordered By: [place] Alvarado on 05-07-2022 Basophils/100 WBC (Bld) 0.7 % . [facility] Bilirubin.total [Mass/volume ] in Serum or PlasmaOrdered By: [place] Alvarado on 05-07-2022 Bilirubin [Mass/Vol] 0.6 mg/dL 0.3-1.2 [facility] Calcium [Mass/volume] in Ser um or PlasmaOrdered By: [place] Alvarado on 05-07-2022 Calcium [Mass/Vol] 9.1 mg/dL 8.2-10.2 [facility] Carbon dioxide, total [Moles /volume] in Serum or PlasmaOrdered By: [place] Alvarado on 05-07-2022 CO2 [Moles/Vol] 28.1 mmol/L 22.0-30.0 [facility] Chloride [Moles/volume] in S hugo or PlasmaOrdered By: [place] Alvarado on 05-07-2022 Chloride [Moles/Vol] 100 mmol/L 95-114 [facility] Cholesterol [Mass/volume] in Serum or PlasmaOrdered By: [place] Alvarado on 05-07-2022 Cholesterol [Mass/Vol] 181 mg/dL 140-200 [facility] Comment on above: Chol less than 200 m g/dl low riskChol 201-239 mg/dl borderline riskChol 240 mg/dl and greater high risk Cholesterol in LDL Calc [Mas s/Vol]Ordered By: [place] Alvarado on 05-07-2022 Cholesterol in LDL [Mass/Vol] 102 mg/dL 0-100 [facility] Comment on above: LDL ATP III CLASSIFI CATIONLDL less than 100 mg/dL OptimalLDL 100-129 mg/dL Near or above optimalLDL 130-159 mg/dL Borderline highLDL 160-189 mg/dL HighLDL greater than 189 mg/dL Very high Cholesterol in VLDL Calc [Ma ss/Vol]Ordered By: [place] Alvarado on 05-07-2022 Cholesterol in VLDL [Mass/Vol] 20 mg/dL [facility] Creatinine and Glomerular fi ltration rate.predicted panel (S/P/Bld)Ordered By: [place] Alvarado on 05-07-2022 Creatinine [Mass/Vol] 0.65 mg/dL 0.44-1.03 [facility] Eosinophils Auto (Bld) [#/Vo l]Ordered By: [place] Alvarado on 05-07-2022 Eosinophils (Bld) [#/Vol] 0.1 10*3/uL 0.0-0.45 [facility] Eosinophils/100 WBC Auto (Bl d)Ordered By: [place] Alvarado on 05-07-2022 Eosinophils/100 WBC (Bld) 1.8 % . [facility] Erythrocyte distribution wid th Auto (RBC) [Ratio]Ordered By: [place] Alvarado on 05-07-2022 Erythrocyte distribution width (RBC) [Ratio] 17.8 % 11.9-15.3 [facility] Estimated glomerular filtrat ion rate (GFR) non- AmericanOrdered By: [place] Alvarado on 05-07-2022 GFR/1.73 sq M.predicted among non-blacks MDRD (S/P/Bld) [Vol rate/Area] > 60 mL/Min [facility] Globulin Calc (S) [Mass/Vol] Ordered By: [place] Alvarado on 05-07-2022 Globulin (S) [Mass/Vol] 3.7 g/dL [facility] Glucose [Mass/volume] in Ser um or PlasmaOrdered By: [place] Alvarado on 05-07-2022 Glucose [Mass/Vol] 137 mg/dL 70-100 [facility] Comment on above: ADA recommended refe rence rangeRandom Glucose Reference Range is dependent on time and content of last meal. Glucose of more than 200 mg/dL in a nonstressed, ambulatory subject supports the diagnosis of Diabetes Mellitus. Hematocrit Auto (Bld) [Volum e fraction]Ordered By: [place] Alvarado on 05-07-2022 Hematocrit (Bld) [Volume fraction] 45.4 % 34.0-46.4 [facility] Hemoglobin [Mass/volume] in BloodOrdered By: [place] Alvarado on 05-07-2022 Hemoglobin (Bld) [Mass/Vol] 14.1 g/dL 11.8-15.4 [facility] Leukocytes [#/volume] correc silverio for nucleated erythrocytes in Blood by Automated counOrdered By: [place] Alvarado on 05-07-2022 WBC corrected for nucl RBC Auto (Bld) [#/Vol] 7.9 10*3/uL 3.8-11.6 [facility] Lymphocytes Auto (Bld) [#/Vo l]Ordered By: [place] Alvarado on 05-07-2022 Lymphocytes (Bld) [#/Vol] 2.4 10*3/uL 1.00-4.8 [facility] Lymphocytes/100 WBC Auto (Bl d)Ordered By: [place] Alvarado on 05-07-2022 Lymphocytes/100 WBC (Bld) 30.9 % . [facility] MCH Auto (RBC) [Entitic mass ]Ordered By: [place] Alvarado on 05-07-2022 MCH (RBC) [Entitic mass] 24.6 pg 24.7-34.3 [facility] MCHC Auto (RBC) [Mass/Vol]Or dered By: [place] Alvarado on 05-07-2022 MCHC (RBC) [Mass/Vol] 31.0 g/dL 32.0-35.0 [facility] MCV Auto (RBC) [Entitic vol] Ordered By: [place] Alvarado on 05-07-2022 MCV (RBC) [Entitic vol] 79.4 fL 80-100 [facility] Monocytes Auto (Bld) [#/Vol] Ordered By: [place] Alvarado on 05-07-2022 Monocytes (Bld) [#/Vol] 0.7 10*3/uL 0.0-0.8 [facility] Monocytes/100 WBC Auto (Bld) Ordered By: [place] Alvarado on 05-07-2022 Monocytes/100 WBC (Bld) 9.3 % . [facility] Neutrophils Auto (Bld) [#/Vo l]Ordered By: [place] Alvarado on 05-07-2022 Neutrophils (Bld) [#/Vol] 4.5 10*3/uL 1.8-7.7 [facility] Neutrophils/100 WBC Auto (Bl d)Ordered By: [place] Alvarado on 05-07-2022 Neutrophils/100 WBC (Bld) 57.3 % . [facility] No Panel InformationOrdered By: [place] Alvarado on 05-07-2022 Estimated GFR () > 60 mL/Min [facility] Comment on above: GFR estimated refere nce range: According to KDOQI guidelines, <60 ml/min/1.73m2 is sufficient to diagnose a patient with chronic kidney disease. Pharmacy Creatinine Clearance (Chem N/A [facility] Nucleated erythrocytes [Pres ence] in Blood by Automated countOrdered By: [place] Alvarado on 05-07-2022 Nucleated RBC Auto Ql (Bld) 0.1 /100{WBC} 0-0.5 [facility] Platelet mean volume Auto (B ld) [Entitic vol]Ordered By: [place] Alvarado on 05-07-2022 Platelet mean volume (Bld) [Entitic vol] 9.4 fL 6.3-10.7 [facility] Platelets Auto (Bld) [#/Vol] Ordered By: [place] Alvarado on 05-07-2022 Platelets (Bld) [#/Vol] 242 10*3/uL 150-450 [facility] Potassium [Moles/volume] in Serum or PlasmaOrdered By: [place] Alvarado on 05-07-2022 Potassium [Moles/Vol] 4.3 mmol/L 3.5-5.1 [facility] Protein [Mass/volume] in Ser um or PlasmaOrdered By: [place] Alvarado on 05-07-2022 Protein [Mass/Vol] 7.6 g/dL 6.1-7.9 [facility] RBC Auto (Bld) [#/Vol]Ordere d By: [place] Alvarado on 05-07-2022 RBC (Bld) [#/Vol] 5.72 10*6/uL 3.60-5.00 [facility] Serum or plasma alanine ulloa otransferase measurement without P-5'-P (enzymatic activiOrdered By: [place] Alvarado on 05-07-2022 ALT No additional P-5'-P [Catalytic activity/Vol] 61 U/L 10-60 [facility] Serum or plasma albumin/glob ulin mass ratioOrdered By: [place] Alvarado on 05-07-2022 Albumin/Globulin [Mass ratio] 1.1 {ratio} [facility] Serum or plasma anion gap de terminationOrdered By: [place] Alvarado on 05-07-2022 Anion gap [Moles/Vol] 11.2 mmol/L 6.0-15.0 [facility] Serum or plasma high density lipoprotein (HDL) cholesterol measurementOrdered By: [place] Alvarado on 05-07-2022 Cholesterol in HDL [Mass/Vol] 58 mg/dL 35-85 [facility] Comment on above: HDL CHOL ATP-III CLA SSIFICATION Cardiovascular RiskHDL > or equal to 60 mg/dL LOWHDL < 40 mg/dL HIGH Serum or plasma total choles terol/high density lipoprotein (HDL) cholesterol mass ratOrdered By: [place] Alvarado on 05-07-2022 Cholesterol.total/Choles terol in HDL [Mass ratio] 3.1 {ratio} <5.0 [facility] Sodium [Moles/volume] in Ser um or PlasmaOrdered By: [place] Alvarado on 05-07-2022 Sodium [Moles/Vol] 135 mmol/L 136-146 [facility] TSH DL <= 0.005 mIU/L QnOrde red By: [place] Alvarado on 05-07-2022 TSH Qn 4.21 m[IU]/L 0.45-5.33 [facility] Triglyceride [Mass/volume] i n Serum or PlasmaOrdered By: [place] Alvarado on 05-07-2022 Triglyceride [Mass/Vol] 103 mg/dL 35-149 [facility] Comment on above: TRIG ATP III CLASSIF ICATIONTRIG less than 150 mg/dL NormalTRIG 150-199 mg/dL Borderline highTRIG 200-500 mg/dL High TRIG greater than 500 mg/dL Very highStandard traceable to the Center for Disease Conrtrol and Prevention (CDC) test method. Urea nitrogen [Mass/volume] in Serum or PlasmaOrdered By: [place] Alvarado on 05-07-2022 Urea nitrogen [Mass/Vol] 14 mg/dL 9-23 [facility] WBC Auto (Bld) [#/Vol]Ordere d By: [place] Alvarado on 05-07-2022 WBC (Bld) [#/Vol] 7.9 10*3/uL 3.8-11.6 [facility] Basophils Auto (Bld) [#/Vol] Ordered By: Tyler Villeda on 04-13-2022 Basophils (Bld) [#/Vol] 0.1 10*3/uL 0.0-0.2 [facility] Basophils/100 WBC Auto (Bld) Ordered By: Tyler Villeda on 04-13-2022 Basophils/100 WBC (Bld) 0.6 % . [facility] C reactive protein [Mass/vol ume] in Serum or PlasmaOrdered By: Tyler Villeda on 04-13-2022 CRP [Mass/Vol] 2.1 mg/dL 0.0-1.0 [facility] Eosinophils Auto (Bld) [#/Vo l]Ordered By: Tyler Villeda on 04-13-2022 Eosinophils (Bld) [#/Vol] 0.2 10*3/uL 0.0-0.45 [facility] Eosinophils/100 WBC Auto (Bl d)Ordered By: Tyler Villeda on 04-13-2022 Eosinophils/100 WBC (Bld) 2.0 % . [facility] Erythrocyte distribution wid th Auto (RBC) [Ratio]Ordered By: Tyler Villeda on 04-13-2022 Erythrocyte distribution width (RBC) [Ratio] 17.6 % 11.9-15.3 [facility] Erythrocyte sedimentation ra te by Photometric methodOrdered By: Tyler Villeda on 04-13-2022 ESR Photometric method (d) [Velocity] 54 mm/hr 0-29 [facility] Hematocrit Auto (Bld) [Volum e fraction]Ordered By: Tyler Villeda on 04-13-2022 Hematocrit (Bld) [Volume fraction] 44.4 % 34.0-46.4 [facility] Hemoglobin [Mass/volume] in BloodOrdered By: Tyler Villeda on 04-13-2022 Hemoglobin (Bld) [Mass/Vol] 14.3 g/dL 11.8-15.4 [facility] Leukocytes [#/volume] correc silverio for nucleated erythrocytes in Blood by Automated counOrdered By: Tyler Villeda on 04-13-2022 WBC corrected for nucl RBC Auto (Bld) [#/Vol] 8.6 10*3/uL 3.8-11.6 [facility] Lymphocytes Auto (Bld) [#/Vo l]Ordered By: Tyler Villeda on 04-13-2022 Lymphocytes (Bld) [#/Vol] 2.9 10*3/uL 1.00-4.8 [facility] Lymphocytes/100 WBC Auto (Bl d)Ordered By: Tyler Villeda on 04-13-2022 Lymphocytes/100 WBC (Bld) 33.6 % . [facility] MCH Auto (RBC) [Entitic mass ]Ordered By: Tyler Villeda on 04-13-2022 MCH (RBC) [Entitic mass] 24.9 pg 24.7-34.3 [facility] MCHC Auto (RBC) [Mass/Vol]Or dered By: Tyler Villeda on 04-13-2022 MCHC (RBC) [Mass/Vol] 32.2 g/dL 32.0-35.0 [facility] MCV Auto (RBC) [Entitic vol] Ordered By: Tyler Villeda on 04-13-2022 MCV (RBC) [Entitic vol] 77.4 fL 80-100 [facility] Monocytes Auto (Bld) [#/Vol] Ordered By: Tyler Villeda on 04-13-2022 Monocytes (Bld) [#/Vol] 0.9 10*3/uL 0.0-0.8 [facility] Monocytes/100 WBC Auto (Bld) Ordered By: Tyler Villeda on 04-13-2022 Monocytes/100 WBC (Bld) 10.0 % . [facility] Neutrophils Auto (Bld) [#/Vo l]Ordered By: Tyler Villeda on 04-13-2022 Neutrophils (Bld) [#/Vol] 4.6 10*3/uL 1.8-7.7 [facility] Neutrophils/100 WBC Auto (Bl d)Ordered By: Tyler Villeda on 04-13-2022 Neutrophils/100 WBC (Bld) 53.8 % . [facility] Nucleated erythrocytes [Pres ence] in Blood by Automated countOrdered By: Tyler Villeda on 04-13-2022 Nucleated RBC Auto Ql (Bld) 0.1 /100{WBC} 0-0.5 [facility] Platelet mean volume Auto (B ld) [Entitic vol]Ordered By: Tyler Villeda on 04-13-2022 Platelet mean volume (Bld) [Entitic vol] 9.1 fL 6.3-10.7 [facility] Platelets Auto (Bld) [#/Vol] Ordered By: Tyler Villeda on 04-13-2022 Platelets (Bld) [#/Vol] 296 10*3/uL 150-450 [facility] RBC Auto (Bld) [#/Vol]Ordere d By: Tyler Villeda on 04-13-2022 RBC (Bld) [#/Vol] 5.73 10*6/uL 3.60-5.00 [facility] WBC Auto (Bld) [#/Vol]Ordere d By: Tlyer Villeda on 04-13-2022 WBC (Bld) [#/Vol] 8.6 10*3/uL 3.8-11.6 [facility] Serum or plasma follitropin measurement (units/volume)Ordered By: [place] Alvarado on 12-03-2021 Follitropin Qn 18.3 m[IU]/mL [facility] Comment on above: FEMALE NORMALS (JUDIE ENOPAUSE) MID-FOLLICULAR PHASE: 3.9-8.8 mIU/mL MID-CYCLE PEAK: 4.5-22.5 mIU/mL MID-LUTEAL PHASE: 1.8-5.1 mIU/mL FEMALE NORMALS (POSTMENOPAUSE): 16.7-113.6 mIU/mL MALE NORMALS: 1.3-19.3 mIU/mL TSH DL <= 0.005 mIU/L QnOrde red By: [place] Alvarado on 12-03-2021 TSH Qn 4.23 m[IU]/L 0.45-5.33 [facility] Total estrogen measurementOr dered By: [place] Alvarado on 12-03-2021 Estrogen [Mass/Vol] 83 pg/mL . [facility] Comment on above: Prepubertal < 40 Female Cycle: 1-10 Days 16 - 328 11-20 Days 34 - 501 21-30 Days 48 - 350 Post-Menopausal 40 - 244 Performed at: - [address] [id number] Gang Sawyer: Virgie Isaac MD, Phone: [phone] Coding Summary.on 01-26-2019 Coding Summary. 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 PYMT PROC APC STAT DESCRIPTION DOCTOR NAME DATE 62569 511 J1 Tenotomy, percutaneous, Thuan Travis DPM 01/24/2019 Achilles tendon (separate procedure); general anesthesia RT Right side (used to identify procedures performed on the right side of the body) 58627 Anesthesia for Shahab Almanzar Jr., DO 01/24/2019 [...] am Normal [facility] Inpatient Patient Summaryon 01-24-2019 Inpatient Patient Summary [facility] Clinical Discharge Instructions PERSON INFORMATION Name: GEETA SHELTON [facility]ICIANS Admitting Physician: Thuan Travis DPM Attending Physician: Thuan Travis DPM PCP: Nichole Caballero Discharge Diagnosis: Comment: PATIENT EDUCATION INFORMATION Instructions: Post Op Patient Instructions - FT (Custom); Foot Cryocuff Patient Instructions - FT (Custom); Thaddeus - Post Operative Instructions (Revised 12/20/13) (Custom) ([id number]) Medication Leaflets: Follow up: MEDICATION LIST Comment: Normal [facility] Lyteson 01-24-2019 Anion gap [Moles/Vol] 14 mmol/L Normal 6-16 [facility] Comment on above: Performed By: #### 2 [id number], [id number], [id number], [id number], [id number], [id number] #### [facility] Laboratory [address] [place] [address] Chloride [Moles/Vol] 107 mmol/L Normal 101-111 [facility] Comment on above: Performed By: #### 2 [id number], [id number], [id number], [id number], [id number], [id number] #### [facility] [address] [place] [address] CO2 [Moles/Vol] 23 mmol/L Normal 21-31 [facility] Comment on above: Performed By: #### 2 [id number], [id number], [id number], [id number], [id number], [id number] #### [facility] Laboratory [address] [place] [address] Potassium [Moles/Vol] 4.9 mmol/L Normal 3.5-5.3 [facility] Comment on above: Performed By: #### 2 [id number], [id number], [id number], [id number], [id number], [id number] #### [facility] [address] [place] [address] Sodium [Moles/Vol] 139 mmol/L Normal 135-145 [facility] Comment on above: Performed By: #### 2 [id number], [id number], [id number], [id number], [id number], [id number] #### [facility] Laboratory [address] [place] [address] Main OR Intraoperative Recor don 01-24-2019 Main OR Intraoperative Record IntraOp Document Type FT Summary Primary Physician: Thuan Travis DPM Finalized Date/Time: 01/24/19 11:33:24 Pt. Name: GEETA SHELTON/Sex: 1970 Female Med Rec #: [id number] Physician: Thuan Travis DPM Financial #: [id number] Pt. Type: A Room/Bed: [facility] Admit/Disch: 01/24/19 07:58:48 - Institution: [...] Cheryl Role Performed Anesthesiologist Surgeon - Primary CIVIL MANAGER Executive Chairman Of The Board Time In 01/24/19 08:48:00 01/24/19 09:00:00 01/24/19 [...] Jani AGUILAR, Kallie Yuen RN, Zuly Duarte RUBBER STAMP DIES INSPECTOR, Prashant Panda Role Performed Platform Man - Primary Platform Man - Other Scrub - Primary Time In [...] RN, Emily A, Schmitz RN, Gerald Veliz RUBBER STAMP DIES INSPECTOR, Prashant M Time Out Complete 01/24/19 08:59:00 [...] AGUILAR, CNOR, Alpa AGUILAR, Zuly Luna, Gerald RUBBER STAMP DIES INSPECTOR, R, Gerald RUBBER STAMP DIES INSPECTOR, Prashant Panad Outcomes Met? Yes Yes Last Modified By: [...] to transfer/transport General Comments: REPORT GIVEN TO ETHICS MANAGERRN. Cy PRIDE RN Dressing/Packing FT Pre-Care [...] safely administered during the perioperative period For [facility] please see scanned medication reconcilliation form for medications used at the field during the procedure. Temperature Control Entry 1 Temperature Control BLANKET MISTRAL AIR Quantity 1 Aid TORSO [[id number]][F] Fluid/Kendall Unit Mistral warming system Setting HIGH/43 Body Site Upper anterior torso Last Modified By: Kallie Gunter RN 01/24/19 08:46:43 Case Comments Finalized By: Maye Silverio CST Document Signatures Signed By: Kallie Gunter RN 01/24/19 09:26 Maye Silverio CST 01/24/19 11:33 Normal [facility] Main OR PACU I Recordon Main OR PACU I Record PACU Phase I Docum ent Type FT Summary Primary Physician: Thuan Travis DPM Finalized Date/Time: 01/24/19 10:08:45 Pt. Name: GEETA SHELTON/Sex: 1970 Female Med Rec #: [id number] Physician: Thuan Travis DPM Financial #: [id number] Pt. Type: A Room/Bed: Admit/Disch: 01/24/19 07:58:48 [...] 10:08 Normal [facility] Main OR PACU II Recordon Main OR PACU II Record PACU Phase II Doc ument Type FT Summary Primary Physician: Thuan Travis DPM Finalized Date/Time: 01/24/19 13:09:21 Pt. Name: GEETA SHELTON/Sex: 1970 Female Med Rec #: [id number] Physician: Thuan Travis DPM Financial #: [id number] Pt. Type: A Room/Bed: [facility] Admit/Disch: 01/24/19 07:58:48 - Institution: [...] Signed By: Keeley Putnam LPN 01/24/19 13:[address] [facility] Main OR Preoperative Recordo n 01-24-2019 Main OR Preoperative Record PreOp Document Type FT Summary Primary Physician: Thuan Travis DPM Number: [id number] Finalized Date/Time: 01/24/19 09:12:07 Pt. Name: GEETA SHELTON Austyn/Sex: 1970 Female Med Rec #: [id number] Physician: Thuan Travis DPM Financial #: [id number] Pt. Type: A Room/Bed: [place] [address] Admit/Disch: 01/24/19 07:58:48 - Institution: Case Times [...] 09:12 Normal [facility] Operative Reporton 10--201 9 Operative Report Date [...] visit. Thuan Travis D.P.M. aek Dictated: 01/24/2019 #[id number] Typed: 01/24/2019 #[id number] cc: Thuan Travis D.P.M. [facility] Comment on above: Result Comment: Elec tronically Signed By: Thuan Travis DPM\.br\Date and Time Signed: 01/24/19 10:24 EDT Patient Education - Texton 1 Patient Education - Text (Inserted Image . Unable to display) [place], [place] Thuan Travis DPM, FACFAS POST OPERATIVE [...] feel free to call the doctor at: [phone] or [phone] Travis paged. ___ Patient signature Date ___ Dr. Anand Sauer DPM, FACFAS Date Revised: 06-[address] [facility] Progress Note-Physicianon Progress Note-Physician Patient: GEETA [...] 1 ml. Complications: None. Anesthesia type: General. [facility] Comment on above: Result Comment: Elec tronically Signed By: Thuan Travis DPM\.br\Date and Time Signed: 01/24/19 09:27 EDT Coding Summary.on 01-12-2019 Coding Summary. CODING DATE: 019 FINAL [facility] STATUS: Home (Routine DC) PAYOR: [...] Saved: 01/12/2019 11:10 am Normal [facility] BUNon 01-11-2019 Urea nitrogen [Mass/Vol] 29 mg/dL High 5-21 [facility] Comment on above: Performed By: #### 2 771650, 7746994, 4527881, 18301112, 4531131, 9138232 #### [facility] Laboratory [address] [place] [address] CBC w/Indiceson 01-11-2019 Erythrocyte distribution width (RBC) [Ratio] 16.1 % High 10.9-14.2 [facility] Comment on above: Performed By: #### 1 4320049, 5603553, 6740349, 2390496, 7989917 #### [facility] Laboratory [address] [place] [address] Hematocrit (Bld) [Volume fraction] 42.1 % Normal 34.0-46.0 [facility] Comment on above: Performed By: #### 1 4995805, 1951385, 0267279, 9109839, 8637237 #### [facility] Laboratory [address] [place] [address] Hemoglobin (Bld) [Mass/Vol] 13.8 g/dL Normal 12.0-16.0 [facility] Comment on above: Performed By: #### 1 5966759, 7257370, 2615561, 9970273, 6264091 #### [facility] Laboratory [address] [place] [address] MCH (RBC) [Entitic mass] 25.8 pg Low 27.0-34.0 [facility] Comment on above: Performed By: #### 1 3992982, 3099220, 8059030, 1016814, 8250843 #### [facility] Laboratory [address] [place] [address] MCHC (RBC) [Mass/Vol] 32.8 g/dL Low 33.3-35.7 [facility] Comment on above: Performed By: #### 1 7934733, 7594700, 5570063, 4627218, 7578350 #### [facility] Laboratory [address] [place] [address] MCV (RBC) [Entitic vol] 78.5 fL Low 80.0-100.[address] [facility] Comment on above: Performed By: #### 1 6286194, 3804749, 2066599, 6886694, 3102618 #### [facility] Laboratory [address] [place] [address] Platelet mean volume (Bld) [Entitic vol] 9.9 fL Normal 6.4-10.8 [facility] Comment on above: Performed By: #### 1 8942005, 1709736, 2249671, 2167017, 5271048 #### [facility] Laboratory [address] [place] [address] Platelets (Bld) [#/Vol] 283.0 E9/L Normal 150. 0-500. 0 [facility] Comment on above: Performed By: #### 1 9032818, 9604615, 3294311, 6574572, 8534989 #### [facility] Laboratory [address] [place] [address] RBC (Bld) [#/Vol] 5.4 E12/L Normal 4.3-5.9 [facility] Comment on above: Performed By: #### 1 8361037, 1548934, 0651388, 6145963, 1912877 #### [facility] Laboratory [address] [place] [address] WBC corrected for nucl RBC Auto (Bld) [#/Vol] 8.6 E9/L Normal 4.0-11.0 [facility] Comment on above: Performed By: #### 1 4361441, 0414843, 5877249, 1525171, 0581205 #### [facility] Laboratory [address] [place] [address] Creatinineon 01-11-2019 Creatinine [Mass/Vol] 1.0 mg/dL Normal 0.5-1.3 [facility] Comment on above: Performed By: #### 2 616766, 1645667, 6925175, 52831465, 5475796, 7833183 #### [facility] Laboratory [address] [place] [address] Glucoseon 01-11-2019 Glucose [Mass/Vol] 95 mg/dL Normal 55-199 [facility] Comment on above: Performed By: #### 1 8524381, 7871089, 6740620, 4362932, 5413754 #### [facility] Laboratory [address] [place] [address] eGFRon 01-11-2019 GFR/1.73 sq M predicted among blacks MDRD (S/P/Bld) [Vol rate/Area] mL/min/{1.73_m2} Normal >=59 [facility] Comment on above: Order Comment: Order added by Discern Expert. Result Comment: eGFR is race adjusted. AA=. Performed By: #### 2 675183, 6976759, 2744648, 34905169, 7031845, 9300420 #### [facility] Laboratory [address] [place] [address] GFR/1.73 sq M predicted among non-blacks MDRD (S/P/Bld) [Vol rate/Area] 59 mL/min/1.73 m2 Normal >=59 [facility] Comment on above: Order Comment: Order added by Discern Expert. 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 Kidney failure is indicated at less than 15 mL/min/1.73m2. Performed By: #### 2 245056, 2264489, 3790739, 42192451, 7051332, 1538086 #### [facility] Laboratory [address] [place] [address] Coding Summary.on 12-15-2018 Coding Summary. CODING DATE: 019 FINAL [facility] STATUS: Home (Routine DC) PAYOR: Medicare APC [...] pm Normal [facility] BUNon 12-14-2018 Urea nitrogen [Mass/Vol] 19 mg/dL Normal 5-21 [facility] Comment on above: Performed By: #### 2 287203, 8361854, 1605840, 90841848, 5397763, 5605509 #### [facility] Laboratory [address] [place] [address] CBC w/Indiceson 12-14-2018 Erythrocyte distribution width (RBC) [Ratio] 17.1 % High 10.9-14.2 [facility] Comment on above: Performed By: #### 2 792489, 7211169, 1560536, 85848760, 9673565, 4237615 #### [facility] Laboratory [address] [place] [address] Hematocrit (Bld) [Volume fraction] 41.5 % Normal 34.0-46.0 [facility] Comment on above: Performed By: #### 2 681836, 5425627, 2495553, 72933194, 0498006, 8550318 #### [facility] Laboratory [address] [place] [address] Hemoglobin (Bld) [Mass/Vol] 13.2 g/dL Normal 12.0-16.0 [facility] Comment on above: Performed By: #### 2 067759, 2967458, 6168155, 99712758, 2391331, 7616285 #### [facility] Laboratory [address] [place] [address] MCH (RBC) [Entitic mass] 25.0 pg Low 27.0-34.0 [facility] Comment on above: Performed By: #### 2 297720, 3488752, 5872066, 16061432, 2220848, 0174745 #### [facility] Laboratory [address] [place] [address] MCHC (RBC) [Mass/Vol] 31.7 g/dL Low 33.3-35.7 [facility] Comment on above: Performed By: #### 2 946706, 7017406, 3359225, 95331158, 1346196, 8915873 #### [facility] Laboratory [address] [place] [address] MCV (RBC) [Entitic vol] 78.7 fL Low 80.0-100.[address] [facility] Comment on above: Performed By: #### 2 563710, 2208429, 3679445, 81198715, 0831183, 1284884 #### [facility] Laboratory [address] [place] [address] Platelet mean volume (Bld) [Entitic vol] 9.4 fL Normal 6.4-10.8 [facility] Comment on above: Performed By: #### 2 844753, 6976535, 8758551, 51094080, 8661715, 4139311 #### [facility] Laboratory [address] [place] [address] Platelets (Bld) [#/Vol] 268.0 E9/L Normal 150. 0-500. 0 [facility] Comment on above: Performed By: #### 2 729702, 5658514, 7341211, 32289815, 0475172, 5274225 #### [facility] Laboratory [address] [place] [address] RBC (Bld) [#/Vol] 5.3 E12/L Normal 4.3-5.9 [facility] Comment on above: Performed By: #### 2 298927, 0680489, 9114070, 42432605, 5290728, 9487807 #### [facility] Laboratory [address] [place] [address] WBC corrected for nucl RBC Auto (Bld) [#/Vol] 10.6 E9/L Normal 4.0-11.0 [facility] Comment on above: Performed By: #### 2 712377, 3342369, 7899448, 81018212, 1369804, 9032600 #### [facility] Laboratory [address] [place] [address] Creatinineon 12-14-2018 Creatinine [Mass/Vol] 0.7 mg/dL Normal 0.5-1.3 [facility] Comment on above: Performed By: #### 2 187449, 2615480, 1438888, 70695471, 7269453, 3772033 #### [facility] Laboratory [address] [place] [address] Glucoseon 12-14-2018 Glucose [Mass/Vol] 138 mg/dL Normal 55-199 [facility] Comment on above: Performed By: #### 2 812590, 3973320, 4089543, 61945965, 7764864, 8100321 #### [facility] Laboratory [address] [place] [address] Lyteson 12-14-2018 Anion gap [Moles/Vol] 17 mmol/L High 6-16 [facility] Comment on above: Performed By: #### 2 892424, 3385164, 1815122, 50246221, 1043439, 0732029 #### [facility] Laboratory [address] [place] [address] Chloride [Moles/Vol] 95 mmol/L Low 101-111 [facility] Comment on above: Performed By: #### 2 118482, 5274737, 0288393, 15687986, 3476095, 8330480 #### [facility] Laboratory [address] [place] [address] CO2 [Moles/Vol] 26 mmol/L Normal 21-31 [facility] Comment on above: Performed By: #### 2 071730, 2790856, 0690129, 33921492, 8660590, 8123515 #### [facility] Laboratory [address] [place] [address] Potassium [Moles/Vol] 3.9 mmol/L Normal 3.5-5.3 [facility] Comment on above: Performed By: #### 2 531307, 2254007, 5422986, 79653590, 5815683, 8336537 #### [facility] Laboratory [address] [place] [address] Sodium [Moles/Vol] 134 mmol/L Low 135-145 [facility] Comment on above: Performed By: #### 2 166467, 6860087, 4957780, 58194003, 3809076, 7125414 #### [facility] Laboratory [address] [place] [address] XR Chest 2 Viewson 9 XR Chest [...] MD Transcribed by: MAGEN Technologist: KRISTYN Thornton [facility] eGFRon 12-14-2018 GFR/1.73 sq M predicted among blacks MDRD (S/P/Bld) [Vol rate/Area] mL/min/{1.73_m2} Normal >=59 [facility] Comment on above: Order Comment: Order added by Discern Expert. Result Comment: eGFR is race adjusted. AA=. Performed By: #### 2 803514, 2807193, 6983182, 33255312, 8851992, 6096337 #### [facility] Laboratory [address] [place] [address] GFR/1.73 sq M predicted among non-blacks MDRD (S/P/Bld) [Vol rate/Area] mL/min/{1.73_m2} Normal >=59 [facility] Comment on above: Order Comment: Order added by Discern Expert. 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 Kidney failure is indicated at less than 15 mL/min/1.73m2. Performed By: #### 2 048734, 7503004, 0099511, 31717576, 8778776, 6649700 #### [facility] Laboratory [address] [place] [address] Vital Signs Date Time Vital Sign Value Performing Clinician Facility 09-30-2023 09:36-0400 Body height 165.1 cm PHYSICIAN [facility] 09-30-2023 09:36-0400 Body mass index (BMI) [Ratio] 46.2 kg/m2 PHYSICIAN [facility] 09-30-2023 09:36-0400 Body temperature 97.6 [degF] PHYSICIAN NO [facility] 09-30-2023 09:36-0400 Body weight 126.09 kg PHYSICIAN NO [facility] 09-30-2023 09:36-0400 Diastolic blood pressure 85 mm[Hg] PHYSICIAN [facility] 09-30-2023 09:36-0400 Heart rate 87 /min PHYSICIAN NO [facility] 09-30-2023 09:36-0400 Respiratory rate 20 /min PHYSICIAN NO [facility] 09-30-2023 09:36-0400 SaO2% (BldA) [Mass fraction] 98 % PHYSICIAN [facility] 09-30-2023 09:36-0400 Systolic blood pressure 139 mm[Hg] PHYSICIAN [facility] 03-02-2023 10:45-0500 Body height 165.1 cm Tyler Jean Other [employer] Other 03-02-2023 10:45-0500 Body mass index (BMI) [Ratio] 44.76 kg/m2 Tyler Jean Other [employer] Other 03-02-2023 10:45-0500 Body temperature 96.7 [degF] Tyler Mcnamaratyler Other [employer] Other 03-02-2023 10:45-0500 Body weight 122.02 kg Tyler Jean Other [employer] Other 03-02-2023 10:45-0500 Diastolic blood pressure 82 mm[Hg] Tyler Ted Other [employer] Other 03-02-2023 10:45-0500 Respiratory rate 18 /min Tyler Mcnamaratyler Other [employer] Other 03-02-2023 10:45-0500 SaO2% (BldA) [Mass fraction] 96 % Tyler Mcnamaratyler Other [employer] Other 03-02-2023 10:45-0500 Systolic blood pressure 136 mm[Hg] Tyler Mcnamaratyler Other [employer] Other 09-21-2022 09:11-0400 Body weight 128.72 kg ENVIRONMENTAL RESOURCE SPECIALIST Elizabethshaun Alvarado Work Phone: [facility] 09-21-2022 09:11-0400 Diastolic blood pressure 91 mm[Hg] ENVIRONMENTAL RESOURCE SPECIALIST Elizabeth Myerholtz Work Phone: [facility] 09-21-2022 09:11-0400 Heart rate 88 /min ENVIRONMENTAL RESOURCE SPECIALIST Elizabeth Myerholtz Work Phone: [facility] 09-21-2022 09:11-0400 Respiratory rate 20 /min ENVIRONMENTAL RESOURCE SPECIALIST Elizabeth Myerholtz Work Phone: [facility] 09-21-2022 09:11-0400 SaO2% (BldA) [Mass fraction] 96 % ENVIRONMENTAL RESOURCE SPECIALIST Elizabeth Myerholtz Work Phone: [facility] 09-21-2022 09:11-0400 Systolic blood pressure 145 mm[Hg] RHEA Alvarado Work Phone: [facility] 08-16-2022 13:57-0400 Body temperature 98 [degF] RHEA Alvarado Work Phone: [facility] 08-16-2022 13:42-0400 Body height 165.1 cm RHEA Alvarado Work Phone: [facility] 07-03-2022 08:14-0500 Body temperature 97.9 [degF] Acosta Schafer MD Work Phone: [employer] 07-03-2022 08:14-0500 Diastolic blood pressure 70 mm[Hg] Acosta cShafer MD Work Phone: [employer] 07-03-2022 08:14-0500 Heart rate 83 /min Acosta Schafer MD Work Phone: [facility] 07-03-2022 08:14-0500 Respiratory rate 18 /min Acosta Schafer MD Work Phone: [facility] [employer] 07-03-2022 08:14-0500 SaO2% (BldA) [Mass fraction] 98 % Acosta Schafer MD Work Phone: [facility] [employer] 07-03-2022 08:14-0500 Systolic blood pressure 129 mm[Hg] Acosta Schafer MD Work Phone: [facility] [employer] [facility] 07-02-2022 09:45-0500 Body mass index (BMI) [Ratio] 50.66 kg/m2 Acosta Schafer MD Work Phone: [facility] [employer] [facility] 07-02-2022 09:45-0500 Body weight 129.73 kg Acosta Schafer MD Work Phone: [employer] 06-24-2022 11:20-0500 Body height 160 cm Mloz Rn [facility] [employer] 06-24-2022 11:20-0500 Body mass index (BMI) [Ratio] 50.79 kg/m2 [facility]n [facility] 06-24-2022 11:20-0500 Body temperature 97.9 [degF] [facility] 06-24-2022 11:20-0500 Body weight 130.05 kg [facility]loz Rn [facility] 06-24-2022 11:20-0500 Diastolic blood pressure 87 mm[Hg] Mloz Rn [facility] 06-24-2022 11:20-0500 Heart rate 73 /min Mloz Rn JULIO [employer] 06-24-2022 11:20-0500 Respiratory rate 16 /min Mloz Rn [facility] 06-24-2022 11:20-0500 SaO2% (BldA) [Mass fraction] 98 % Mloz Rn [facility] 06-24-2022 11:20-0500 Systolic blood pressure 142 mm[Hg] Mloz Rn [facility] 05-18-2022 08:46-0500 Body height 165.1 cm Acosta Schafer MD Work Phone: [facility] Work Phone: 05-18-2022 08:46-0500 Body mass index (BMI) [Ratio] 45.93 kg/m2 Acosta Schafer MD Work Phone: [facility] Work Phone: 05-18-2022 08:46-0500 Body surface area Derived from formula 2.27 m2 Acosta Schafer MD Work Phone: [facility] Work Phone: 05-18-2022 08:46-0500 Body weight 125.19 kg Acosta Schafer MD Work Phone: [facility] Work Phone: Encounters Encounter Date Encounter Type Care Provider Facility Start: 09-30-2023 End: 09-30-2023 ambulatory PHYSICIAN [facility] Work Phone: Start: 09-30-2023 End: 09-30-2023 Patient encounter procedure PHYSICIAN NO [facility] Ambulatory Work Phone: Start: 09-30-2023 Registered Recurring PHYSICIAN NO [facility] Acute Work Phone: Start: 09-30-2023 ambulatory Elizabeth Alvarado F acility:[facility] Start: 09-07-2023 End: 09-07-2023 Patient encounter procedure PHYSICIAN NO [facility] [place] Work Phone: Start: 08-24-2023 End: 08-24-2023 ambulatory RHEA Alvarado Work Phone: [facility] Work Phone: Start: 08-24-2023 End: 08-24-2023 Patient encounter procedure ENVIRONMENTAL RESOURCE SPECIALISTNohelia Alvarado Work Phone: [facility] Start: 08-24-2023 End: 08-24-2023 Departed Referred RHEA Alvarado Work Phone: [facility] Start: 05-10-2023 End: 05-10-2023 ambulatory ENVIRONMENTAL RESOURCE SPECIALISTNohelia Alvarado Work Phone: [facility] Work Phone: Start: 05-10-2023 End: 05-10-2023 Patient encounter procedure ENVIRONMENTAL RESOURCE SPECIALIST Elizabeth Alvarado Work Phone: [facility] Work Phone: Start: 03-02-2023 End: 03-02-2023 ambulatory Tyler Jean Other [employer] Other Start: 03-02-2023 Office outpatient vi sit 25 minutes Tyelr Jean [facility] V[facility] Surgery Start: 02-14-2023 End: 02-14-2023 ambulatory ENVIRONMENTAL RESOURCE SPECIALISTNohelia Alvarado Work Phone: [facility] Work Phone: Start: 02-14-2023 End: 02-14-2023 Patient encounter procedure RHEA Alvarado Work Phone: [facility]-Ultrasound [facility] [place] Work Phone: Start: 01-26-2023 [facility] visit new patient Sindy rubio [facility] Vascular Surgery Start: 01-26-2023 End: 01-26-2023 ambulatory ENVIRONMENTAL RESOURCE SPECIALISTNohelia Alvarado Work Phone: [employer] Other Start: 01-26-2023 End: 01-26-2023 Patient encounter procedure RHEA Alvarado Work Phone: [facility]-XRay [facility] [place] Work Phone: Start: 12-29-2022 Patient encounter procedure Acosta Schafer MD Work Phone: [facility] Work Phone: Start: 12-29-2022 ambulatory Provider Pending Facili ty:[id number] Start: 11-25-2022 End: 11-25-2022 Patient encounter procedure RHEA Alvarado Work Phone: [facility]-Respiratory Therapy Work Phone: Start: 09-22-2022 Patient encounter procedure Acosta Schafer MD Work Phone: [facility] Work Phone: Start: 09-22-2022 ambulatory Provider Pending Facili ty:[id number] Start: 09-21-2022 End: 09-21-2022 ambulatory ENVIRONMENTAL RESOURCE SPECIALIST Elizabeth Alvarado Work Phone: [facility] Work Phone: Start: 09-21-2022 End: 09-21-2022 Registered Recurring RHEA Johnson Christiano Work Phone: [facility] Work Phone: Start: 08-11-[address] Acosta Alva yaneli [place] Facility:[id number] Start: 08-04-2022 End: 08-04-2022 Discharged Recurring RHEA Fraserjackie Alvarado Work Phone: [facility]-Physical Therapy [address] Start: 07-23-2022 End: 07-23-2022 ambulatory RHEA Hurley Christiano Work Phone: [facility] Work Phone: Start: 07-23-2022 End: 07-23-2022 Patient encounter procedure RHEA Fraserjackie Alvarado Work Phone: [facility] [place] Work Phone: Start: 07-16-2022 Telephone encounter Acosta Crews MD Work Phone: [facility] Work Phone: Start: 07-14-2022 Patient encounter procedure Acosta Schafer MD Work Phone: [facility] Work Phone: Start: 07-14-[address] Acosta Schafer Facility:[id number] Start: 07-07-2022 AUDIT Acosta swo MD Work Phone: [facility] Work Phone: Start: 07-01-2022 ambulatory Provider Pending Facili ty:[id number] Start: 07-01-2022 End: 07-03-2022 Evaluation and management of inpatient [facility] Start: 07-01-2022 SURGNONUH, Provider: Acosta Schafer, [...] procedure Natali Tyson PT, DPT Work Phone: [facility] Work Phone: Start: 06-25-2022 ambulatory Mr. Merrill martinez [facility] Facility:[id number] Start: 06-25-2022 Encounter for other preprocedural examination Mr. Merrill [facility] Start: 06-24-2022 End: 06-29-2022 ambulatory [facility]COSTA SCHAFER [facility] Start: 06-24-2022 End: 06-28-2022 Subsequent hospital visit by physician Juan Manzano Rm 2 [facility] Start: 05-18-2022 Patient encounter procedure Acosta Schafer MD [facility] Phone: [facility] Work Phone: Start: 05-18-[address] Acosta Schafer Facility:[id number] Start: 05-07-2022 End: 05-07-2022 Patient encounter procedure RHEA Alvarado Work Phone: [facility] Work Phone: Start: 04-13-2022 End: 04-13-2022 ambulatory RHEA Alvarado Work Phone: [facility] Work Phone: Start: 04-13-2022 End: 04-13-2022 Patient encounter procedure RHEA Alvarado Work Phone: [facility] [place] Start: 12-17-2021 End: 12-17-2021 Patient encounter procedure RHEA Morinsaige Work Phone: [facility]Nuc Med [facility] [place] Start: 12-07-2021 End: 12-07-2021 Patient encounter procedure RHEA Morinbijupaula Work Phone: [facility]Ultrasound [facility] [place] Start: 12-03-2021 End: 12-03-2021 Departed Referred RHEA Johnson Christiano Work Phone: [facility] Procedures Date Procedure [...] TO MG FOR LOW K Arya Coronado ENVIRONMENTAL RESOURCE SPECIALIST - FACILITY MAINTENANCE MANAGER Work Phone: Start: 07-03-2022 Blood count complete automated Arya Coronado ENVIRONMENTAL RESOURCE SPECIALIST - FACILITY MAINTENANCE MANAGER Work Phone: Start: 07-02-2022 Dup-scan xtr veins unilateral/limited study Carlos A Hou DO Work Phone: Start: 07-02-2022 BASIC METABOLIC PANE L W/ REFLEX TO MG FOR LOW K Arya Coronado ENVIRONMENTAL RESOURCE SPECIALIST - FACILITY MAINTENANCE MANAGER Work Phone: Start: 07-02-2022 Blood count complete automated Arya Coronado ENVIRONMENTAL RESOURCE SPECIALIST - FACILITY MAINTENANCE MANAGER Work Phone: Start: 07-01-2022 Radiologic examinati on knee 1/2 views Arya Coronado ENVIRONMENTAL RESOURCE SPECIALIST - FACILITY MAINTENANCE MANAGER Work Phone: Start: 07-01-2022 End: 07-01-2022 Revj [...] Start: 12-17-2021 Radionuclide three-p hase bone study ENVIRONMENTAL RESOURCE SPECIALISTNohelia Alvarado Work Phone: Start: 12-07-2021 US scan of thyroid RHEA Alvarado Work Phone: Start: 02-01-2019 Anesthesia consultation Start: 01-24-2019 Anesthesia consultation Plan of Treatment Date Care Activity Detail Author Start: 06-29-2023 FUV, Provider: Acosta Schafer, Status: Pen, Time: 2:15 PM FUV, Provider: Acosta Schafer, Status: Pen, Time: 2:15 PM -[place] [facility] Work Phone: Start: 02-17-2023 Screening for malign ant neoplasm of colon [facility] Start: 12-29-2022 FUV, Provider: Acosta Schafer, Status: Pen, Time: 1:45 PM FUV, Provider: Acosta Schafer, Status: Pen, Time: 1:45 PM [facility] [place] Work Phone: Start: 08-11-2022 FUV, Provider: Acosta Schafer, Status: Pen, Time: 9:45 AM FUV, Provider: Acosta Schafer, Status: Pen, Time: 9:[address] [facility] [place] Work Phone: Start: 07-23-2022 [facility] Start: 07-14-2022 POV, Provider: Acosta Schafer, Status: Pen, Time: 9:00 AM POV, Provider: Acosta Schafer, Status: Pen, Time: 9:00 AM [facility] [place] Work Phone: Start: 07-01-2022 End: 07-01-2022 Admission to same day surgery center 07/01/2022 Surgery IP Unit Acosta Schafer MD [id number] [place] [address] RIGHT KNEE RIGHT TOTAL KNEE REVISION INSTRUMENTATION ANTONELLA FEMORAL & SCIATIC BLOCK [facility] [place] Comment on above: RIGHT KNEE RIGHT TOT AL KNEE REVISION INSTRUMENTATION ANTONELLA FEMORAL & SCIATIC BLOCK Start: 07-01-2022 End: 07-01-2022 Revj total knee arthrp w/wo algrft 1 component KNEE TOTAL ARTHROPLASTY REVISION Loosening of unicondylar knee replacement (HCC) 07/01/2022 10:[address] [facility] Start: 07-01-2022 Subsequent hospital visit by physician 07/01/2022 Hospital Encounter IP Unit Acosta Schafer MD [id number] [place] [address] [facility] [place] Start: 07-01-2022 SURGNON, Provider: Acosta Schafer, Status: Pen, Time: 7:00 AM SURGNON, Provider: Acosta Schafer, Status: Pen, Time: 7:00 AM [facility] [place] Work Phone: Start: 06-25-2022 PREADMIT, Provider: Merrill Alejadnro, Status: Pen, Time: 1:45 PM PREADMIT, Provider: Merrill Alejandro, Status: Pen, Time: 1:45 PM [facility] Work Phone: Start: 06-25-2022 [id number], Provider : Natali Tyson, Status: Pen, Time: 1:00 PM [id number], Provider: Natali Tyson, Status: Pen, Time: 1:00 PM [facility] Work Phone: Start: 06-24-2022 Annual Wellness Visi t (AWV) Annual Wellness Visit (AWV) [facility] Start: 12-17-2021 Radionuclide three-p hase bone study NM bone 3 phase [facility] Start: 12-17-2021 End: 12-17-2021 Patient encounter procedure Departed [facility] [place] Start: 12-07-2021 US scan of thyroid US thyroid [facility] Start: 12-07-2021 End: 12-07-2021 [facility] [place] Start: 11-23-2021 Influenza vaccination Flu vaccine (# 1) [facility] Start: 05-18-2021 COVID-19 Vaccine (4 - Booster for Moderna series) COVID-19 Vaccine (4 - Booster for Moderna series) [facility] Start: 02-23-2018 Screening for malign ant neoplasm of breast Breast cancer screen [facility] Start: 02-23-2018 Shingles vaccine (1 of 2) Shingles v accine (1 of 2) [facility] Start: 02-23-2013 Screening for malign ant neoplasm of colon [facility] Start: 2008 Lipid panel Lipids [facility] Start: 02-23-2003 Diabetes screen Diabetes screen [facility] Start: 02-23-1998 Screening for malign ant neoplasm of cervix [facility] Start: 02-23-1989 Screening for malign ant neoplasm of cervix Pap smear [facility] Start: 02-23-1987 DTaP/Tdap/Td vaccine (1 - Tdap) DTaP/Tdap/Td vaccine (1 - Tdap) [employer] Start: 02-23-1986 Hepatitis C screening Hepatitis C sc reen [facility] Start: 02-23-1983 HIV screening HIV screen [facility] Start: 1980 Depression Screen Depression Screen [facility] [employer] Start: 1968 COVID-19 Vaccine (#1) COVID-19 Vacci ne (#1) [employer] End: 07-04-2022 Basic Metabolic Panel w/ Reflex to MG Basic Metabolic Panel w/ Reflex to MG Lab Routine Daily for 3 Days starting 07/02/2022 until 07/04/2022, 2 completed [facility] Phone: Comment on above: Daily for 3 Days sta rting 07/02/2022 until 07/04/2022, 2 completed End: 07-04-2022 CBC panel - Blood by Automated count CBC Lab Routine Daily for 3 Days starting 07/02/2022 until 07/04/2022, 2 completed [facility] Phone: Comment on above: Daily for 3 Days sta rting 07/02/2022 until 07/04/2022, 2 completed Comprehensive metabo lic 2000 panel - Serum or Plasma [facility] Comprehensive metabo lic 2000 panel - Serum or Plasma [facility] IgA [Mass/volume] in Serum or Plasma [facility] IgG [Mass/volume] in Serum or Plasma [facility] IgM [Mass/volume] in Serum or Plasma [facility] Oxygen therapy [[facility] Data Set] Initiate Oxygen Therapy Protocol Respiratory Care Routine Daily until discontinued starting 07/01/2022 [facility] [employer] Phone: Comment on above: Daily until disconti nued starting 07/01/2022 Spirometry panel Incentive tonja metry Respiratory Care Routine Every 2hr while awake until discontinued starting 07/01/2022 [facility] [employer] Phone: Comment on above: Every 2hr while awak e until discontinued starting 07/01/2022 [facility] Immunizations Immunization Date Immunization Notes Care Provider Fa cilirowdy 03-16-2016 influenza virus vaccine, unspecified formulation ENVIRONMENTAL RESOURCE SPECIALIST Elizabeth Christiano Work Phone: [facility] 03-16-2016 influenza, injectabl e, quadrivalent, preservative free Sindy Davila Other [facility] [employer] Other Payers Date Payer Category Payer Medicaid [id number] 2022 Self-pay [id number] 2014 Private Health Insurance [id number] 1970 Unknown [id number] [id number]. 182 1968 Unknown [id number] 2.16.840.1.509091.3.579.2. 182 1968 Unknown [id number] 2.16.840.1.322093.3.579.2. 356 1968 Unknown [id number] 2.16.840.1.143577.3.579.2. 1067 1968 Unknown [id number] 2.16.840.1.323145.3.579.2. 1067 1968 Unknown [id number] 2.16.840.1.648194.3.579.2. 1067 1968 Unknown [id number] 2.16.840.1.777191.3.579.2. 1067 1968 Unknown [id number] 2.16.840.1.714385.3.579.2. 1067 1968 Unknown [id number] 2.16.840.1.618214.3.579.2. 1067 1968 Unknown [id number] 2.16.840.1.303144.3.579.2. 1068 Medicare Medicare [id number] Medicare [id number] Medicare Slovan [employer] Dual Adv JRG [id number] Private Health Insurance [facility] [facility] PFFS 1 [id number] Unknown [facility] E DUAL COMPLETE Unknown [id number]. 531 Social History Date Type Detail Facility Start: 06-03-2017 End: 09-21-2022 Tobacco smoking status NHIS Never smoked tobacco (finding) [facility] Start: 1970 Sex Assigned At Female F [facility] Start: 06-24-2022 Tobacco use and exposure Smokeless tobacco non-user [facility] Phone: Start: 06-24-2022 End: 07-02-2022 Alcohol intake Current drinker of alcohol (finding) [facility] Phone: Start: 06-24-2022 Alcohol Comment occasional [facility] [employer] Phone: Start: 1970 Sex Assigned At Not on file B ON [employer] Phone: Start: 06-14-2022 End: 06-24-2022 Exposure to SARS-CoV-2 (event) Not sure [facility] Phone: Sex Assigned At Sex Assigned At [facility] [place] [employer] Other Medical Equipment Procedure Code Equipment Code Equipment Origin al Text Equipment Identifier Dates Cement Bioprep S t - [id number] Start: 07-01-2022 Stem Tib [id number] [id number] Knee Tot Stbl Joey Roberta Triathlon - [id number] , [id number] FDA Start: 07-01-2022 Clinical Notes [...] of both lower extremities (ICD-10 - I87.303) [employer] Other 10-04-2023 Evaluation note* Encounter Date Diagnosis [...] Bilateral lower extremity edema (ICD-10 - R60.0) [employer] Other 04-24-2023 Consult note Author Zoey Ramirez [facility] August 16, 2022 3:19pm Note Date/Time August 16, 2022 2:2 0pm [facility] [place] [address] Hem/Onc Consult Note - OP Signed Patient: Geeta Shelton MR#: [id number] : 1970 Acct:[id number] Age/Sex: 52 / F Type: REG RCR Copies to: Elizabeth Alvarado APRN,FACILITY MAINTENANCE MANAGER Lorrie Baig DO~ HPI Date/Time of Service: Date of Service: 08/16/2022 Time of Service: 14:19 Referring Provider/PCP: Referring Provider: Lorrie Baig DO PCP: Elizabeth Alvarado APRN, EXTRACTION OPERATOR-C - History of Present Illness Reason for [...] and/or blood disorder. No history of thrombosis. [facility] - Medical History Medical History: [...] Additional comments: Patient: Geeta Shelton MR#: [id number] : 1970 Acct:[id number] Age/Sex: 51 / F ADM Date: 2 Loc: [place] Room: Type: [facility] Attending Dr: Tyler Villeda PA-C Copies to: CARLI Noyola Jeffrey S DO~ Ordering Provider: Tyler Villeda PA-C Date of Service: 12/17/21 TN/TN bone 3 phase: M25.562, M25.561 Nuclear medicine [...] the knee hardware bilaterally. This may bepostsurgical. TN/TN bone 3 phase IMPRESSION: Intense uptake of [...] for coordination of care (as documented) and uode-pq-kybi counseling of patient and/or family. Dictated By: Zoey Ramirez APRN DD/ 1419 Signed By: <Electronically signed by RHEA Ramirez> 08/16/22 7974 [facility] Work Phone: 1(971) 967-102803-11-2023 History of Present illness Narrative* Sosa Poon [...] removal as ordered. Patient has [facility] set up. Knee immobilizer sent with [...] Therapy Med Surg Daily Treatment Note Facility/Department: [address] Room: W268/W268-01 NAME: Geeta Shelton : [...] [place] Ac[place] [facility] [place] Chart Reviewed: Yes [...] Recommendations: Continue to assess pending progress Goals Penitentiary Goals Asset Analyst Goal 1: Bed mobility with indep Penitentiary Goal 2: Functional transfes with indep Asset Analyst Goal 3: Amb 50ft with 2ww and indep Asset Analyst Goal 4: 4 steps with handrail and SBA Asset Analyst Goal 5: indep with HEP to improve [...] Therapy Med Surg Daily Treatment Note Facility/Department: [address] Room: [place] [address] NAME: Geeta Shelton : 1970 (52 y.o.) [...] Recommendations: Continue to assess pending progress Goals Penitentiary Goals Penitentiary Goal 1: Bed mobility with indep Penitentiary Goal 2: Functional transfes with indep Asset Analyst Goal 3: Amb 50ft with 2ww and indep Asset Analyst Goal 4: 4 steps with handrail and SBA Penitentiary Goal 5: indep with HEP to improve LE strength and ROM Patient Goals Patient Goals : to go home PLAN General Plan: 2 times a day 7 days a week Safety Devices Type of Devices: All fall risk precautions in place, Call light within reach, Left in bed, Bed alarm in place, Nurse notified [facility] (6 CLICK) BASIC MOBILITY AM-PAC Inpatient Mobility [...] to accomplish the task * Arya Coronado, ENVIRONMENTAL RESOURCE SPECIALIST - FACILITY MAINTENANCE MANAGER - 07/02/2022 9:49 AM EST Progress Note [...] pack per his order. * ChrissSuresh Aparicio, OUTSIDE SALES PROFESSIONAL - 07/01/2022 5:51 PM EST Images from [...] puffs by inhalation with spacer [] Ipratropium Allouez 0.02% unit dose by aerosol Ipratropium Allouez MDI 2 puffs by inhalation with spacer [] Duoneb (Ipratropium + Albuterol) unit dose by aerosol Ipratropium MDI + Albuterol MDI 2 puffs byinhalation w/spacer MDI to Aerosol [] Albuterol Sulfate MDI Albuterol Sulfate 0.083% unit dose by aerosol [] Levalbuterol MDI 2 puffs by inhalation Levalbuterol 1.25 mg unit dose by aerosol [] Ipratropium Allouez MDI by inhalation Ipratropium Allouez 0.02% unit dose by aerosol [] Combivent (Ipratropium + Albuterol) MDI by inhalation Duoneb (Ipratropium + Albuterol) unit doseby aerosol Treatment Assessment [Frequency/Schedule]: Change frequency to: NO CHANGE per Protocol, P&T, [facility] Points 0 1 2 3 [...] (52 y.o.) CODE STATUS: Full Code Room: [place] [address] Date of Service: 07/01/2022 Patient Diagnosis(es): Loosening [...] Ambulation Assistance: Independent Transfer Assistance: Independent Active Bin Piler: Yes Mode of Transportation: Car OBJECTIVE: Orientation Status: Orientation Overall Orientation Status: Within Functional Limits Orientation Level: Oriented X4;Oriented to place;Oriented to time;Oriented to situation;Oriented toperson Observation: Observation/Palpation Posture: Good Observation: right knee incision with bandage and knee immobilizer in place Cognition Status: Cognition Overall Cognitive Status: [facility] Cognition Comment: Follows commands consistently [...] How much help for eating meals?: None AM-[facility] Inpatient Daily Activity Raw Score: [address] AM-[facility] Inpatient ADL T-Scale Score : [...] Therapy Med Surg Initial Assessment Facility/Department: [address] ORTHO TELE Room: [facility]/[place] [address] NAME: Geeta Shelton : 1970 (52 y.o.) [...] Ambulation Assistance: Independent Transfer Assistance: Independent Active Bin Piler: Yes Mode of Transportation: Car OBJECTIVE: Vision [...] Goals: Patient Goals : to go home Asset Analyst Goals Asset Analyst Goal 1: Bed mobility with indep Penitentiary Goal 2: Functional transfes with indep Penitentiary Goal 3: Amb 50ft with 2ww and indep Penitentiary Goal 4: 4 steps with handrail and SBA Penitentiary Goal 5: indep with HEP to improve LE strength and ROM [facility] (6 CLICK) BASIC MOBILITY AM-PAC Inpatient Mobility [...] accomplish the task documented in this encounterBON [facility] [employer] Work Phone: [phone]) 713-558403-09-2023 History of Present illness Narrative* History of [...] she will most likely do this at [facility] in [place]. * Physical exam * General: No acute [...] grammatical areas may persist related to the [employer] software * Merrill Alejandro PA-C * . [facility] Work Phone: [phone]) 190-490403-07-2023 Hospital Discharge instructions* Discharge Instructions* Arya Coronado [...] Hospital Unit/Room#: W268/W268-01 Discharging Unit Phone Number: [phone] Emergency Contact: Extended Emergency Contact Information Primary Emergency Contact: kena travis Relation: Other Past Surgical History: Past Surgical History: Procedure Laterality Date JOINT REPLACEMENT Left knee PARTIAL KNEE ARTHROPLASTY Right REVISION TOTAL KNEE ARTHROPLASTY Right 07/01/2022 RIGHT KNEE RIGHT TOTAL KNEE REVISION INSTRUMENTATION ANTONELLA FEMORAL & SCIATIC BLOCK-DEMETRIA performed by Acosta Schafer [place] [facility] [place] Immunization History: There [...] Assisted Dressing Assisted Toileting Independent Feeding Independent Electronic Typesetting Machine Operator Independent Med Delivery whole Wound Care [...] applicable) Name: Address: Dialysis Schedule: Phone: Fax: Visitor Service Assistant/Tumbler Operator signature: {Esignature:[id number]} PHYSICIAN SECTION Prognosis: {Prognosis:3708196878} Condition at Discharge: { Patient Condition:611812040} Rehab Potential (if transferring to Rehab): {Prognosis:3481949642} Recommended Labs or Other Treatments After Discharge: Physician Certification: I certify the above information and transfer of Geeta Shelton is necessary for the continuing treatment of the diagnosis listed and that she requires {[facility]} for {GREATER/LESS:528960169} 30 days. Update Admission H&P: {CHP DME Changes in HandP:676322664} PHYSICIAN SIGNATURE: {Esignature:[id number]} * Attachments The following attachments cannot be sent through Care Everywhere. * Total Knee Replacement Surgery: General Info (Portuguese) * Wound: VAC (Vacuum-Assisted Closure) (Portuguese) documented in this encounter[facility] Work Phone: 1(617) 165-396103-02-2023 History of Present illness Narrative* Sindy Pelaez RN - 06/24/2022 11:10 AM EST Yellow PAT and Dynahex instruction sheet reviewed with patient, who verbalized understanding. documented in this encounterCRANBERRY [facility]TY [facility]ITAL[facility] Work Phone: evaluation noteNo assessment information available [facility] Work Phone: Evaluation note* Diagnosis Status post revision of total knee replacement, right- Primary Status post revision of total replacement of right knee Acute postoperative pain Other acute postoperative pain documented in this encounter [facility] Work Phone: evaluation note* Diagnosis Onset Date Resolution Status MGUS (monoclonal gammopathy of unknown significance) acute Microcytosis acute Peripheral neuropathy acute [facility] Work Phone: Evaluation note* Diagnosis Onset Date Resolution Status MGUS (monoclonal gammopathy of unknown significance) acute Microcytosis acute Peripheral neuropathy acute MGUS (monoclonal gammopathy of unknown significance) acute [facility] Work Phone: History general Narrative - Reported* Type Description Date Medical History asthma Medical History snoring Medical History Allergic Rhinitis Medical History Essential Hypertension Surgical History Revise/Replace left knee joint Surgical History Varicose Veins 2009 Surgical History Right ankle surgery Hospitalization History See above [employer] Other History of Present illness Narrative* New [...] grammatical areas may persist related to the [employer] software * Acosta Schafer MD * Senior Attending Physician * [facility] * . -[place] [facility] Work Phone: History of Present illness Narrative* [...] grammatical areas may persist related to the [employer] software * Acosta Schafer MD * Senior Attending Physician * [facility] * [facility] [place] * . -[place] [facility] Work Phone: History of Present illness Narrative* [...] will be re-assessed and goals updated. [facility] Work Phone: History of Present illness Narrative* [...] will be re-assessed and goals updated. [facility] Work Phone: History of Present illness Narrative* [...] Schafer MD * Senior Attending Physician * [facility] * . -[facility] Work Phone: History of Present illness Narrative* [...] grammatical areas may persist related to the [employer] software * Merrill Alejandro PA-C * . -[facility] Work Phone: Progress note Author Krzysztof Salazar [facility] September 21, 2022 9:52am Note Date/Time September 21, 2022 9:49a m [facility] [place] [address] Hem/Onc Follow Up Note - OP Signed Patient: Geeta Shelton MR#: [id number] : 1970 Acct:[id number] Age/Sex: 52 / F Type: REG RCR [...] of gait ataxia and cane usage in themdst. Patient is ambulatory with no use of cane today; gait is slow but normal/steady. The patient is alert and oriented x3 - Time with Patient Coordination of Care & Counseling Time: Greater than 50% of time spent with patient was for coordination of care (as documented) and vpta-as-nuty counseling of patient and/or family. [facility] - Medical History Medical History: [...] by Krzysztof Salazar II, > 09/21/22 0952 [facility] Work Phone: Reason for visit Narrative* Initial Evaluation, Pre-Op . * Referred by: [facility]. Acosat Schafer [facility] Work Phone: Reason for visit Narrative* Initial Evaluation, Pre-Op . * Referred by: Dr. Acosta Schafer [facility] Work Phone: Summary Purpose Family [...] replacement of right knee Born, Arya Harry, ENVIRONMENTAL RESOURCE SPECIALIST - FACILITY MAINTENANCE MANAGER [address] [place] [address] Referral ID Status Reason Start Date Expiration Date V isits Requested Visits Authorized [id number] Open Specialty Services Required 07/01/2022 07/01/2023 1 1 Question Answer I certify that I, or a nurse practitioner or physician cancer genetics assistant working with me, had an in-person encounter with the patient and the reason for the home care services is documented in the clinical note on: 07/01/2022 Will the referring provider be the attending provider for home health? [place] of attending provider for home health Dr. [...] content) DATE CREATED AUTHOR 02/01/2019 Rober Renteriaus [facility] DATE CREATED AUTHOR AUTHOR'S ORGANIZ ATION 07/04/2022 [place] DATE CREATED AUTHOR AUTHOR'S ORGANIZ ATION 07/08/2022 [facility] DATE CREATED AUTHOR AUTHOR'S ORGANIZ ATION 12/30/2022 [facility] DATE CREATED AUTHOR AUTHOR'S ORGANIZ ATION 01/09/2023 [facility] DATE CREATED AUTHOR AUTHOR'S ORGANIZ ATION 06/12/2024 [facility] DATE CREATED AUTHOR AUTHOR'S ORGANIZ ATION 10/04/2024 [facility] Care Teams (unrecognized sec tion and content) Team Status: Active Member Role Status Dates Elizabeth Alvarado APRN EXTRACTION OPERATOR-C Primary Care Provide r Active Team Status: Inactive Member Role Status Dates Elizabeth Alvarado APRN EXTRACTION OPERATOR-René Primar y Care Provider, Attending Provider Active Team Status: Inactive Member Role Status Dates Elizabeth Alvarado APRN EXTRACTION OPERATOR-C Primary Care Provide r Active Lorrie Baig DO Attending Provider Active Team Status: Inactive Member Role Status Dates Elizabeth Alvarado APRN EXTRACTION OPERATOR-C Primary Care Provide r Active Tyler Villeda PA-C Attending Provider Active Team Status: Inactive Member Role Status Dates Elizabeth Alvarado APRN EXTRACTION OPERATOR-C Attending Provider A ctive Services Family [facility] Primary Care Provider Active Environmental Scientists Relationship Specialty Start Date End Date Elizabeth Alvarado PCP - General 07/01/22 Team Status: Active Member Role Status Dates Elizabeth Alvarado APRN EXTRACTION OPERATOR-C Primary Care Provide r Active Zoey Ramirez APRN Attending Provider Active Lorrie Baig DO Referring Provider Active Team Status: Inactive Member Role Status Dates Elizabeth Alvarado APRN EXTRACTION OPERATOR-C Primary Care Provide r Active Acosta Schafer Attending Provider Active Team Status: Inactive Member Role Status Dates Elizabeth Alvarado APRN EXTRACTION OPERATOR-C Primary Care Provide r Active Sindy Davila EXTRACTION OPERATOR-C Attending Provider Active Team Status: Inactive Member Role Status Dates Elizabeth Alvarado APRN EXTRACTION OPERATOR-C Attending Provider A ctive Start: August 24, 2023 End: August 24, 2023 Team Status: Active Member Role Status Dates PHYSICIAN NO FAMILY Primary Care Provider Active Team Status: Inactive Member Role Status Dates Elizabeth Alvarado APRN EXTRACTION OPERATOR-C Attending Provider A ctive Start: September 07, 2023 End: September 07, 2023 PHYSICIAN NO FAMILY Primary Care Provider Active Start: September 07, 2023 End: September 07, 2023 Team Status: Active Member Role Status Dates Elizabeth Alvarado APRN EXTRACTION OPERATOR-C Primary Care Provide r Active Start: September 30, 2023 Zoey Ramirez APRN Active Start: September 30, 2023 Lorrie Baig DO Referring Provider Active Sta rt: September 30, 2023 Krzysztof Salazar II, DO Attending Provider Active Start: September 30, 2023 Team Status: Inactive Member Role Status Dates Elizabeth Alvarado APRN EXTRACTION OPERATOR-C Primary Care Provide r Active Start: September [...] 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 IL REVJ TOTAL KNEE ARTHRP W/WO ALGRFT 1 COMPONENT IL REVJ TOT KNEE ARTHRP FEM&ENTIRE TIBIAL COMPONE RIGHT KNEE RIGHT TOTAL KNEE REVISION INSTRUMENTATION ANTONELLA FEMORAL & SCIATIC BLOCK Acosta Schafer MD [address] [place] [address] [facility] [address] [place] [address] Referral ID Status Reason Start Date Expiration Date Visits Re quested Visits Authorized [id number] 1 1 Ordered Prescriptions (unrec ognized section [...] at 250 mL/hr, Administer over 60 Minutes, TIGHT BARREL INSPECTOR TO O.R., On Renee 07/01/22 at 0845, [...] (NoRateChange - Provider: Yang Mccollum APRN - FARM PRODUCTS SHIPPER)1311 (Anesthesia Volume Adjustment - Provider: Yang Mccollum APRN - TOMMIE)1324 (Anesthesia Volume Adjustment - Provider: Yang Mccollum APRN - FARM PRODUCTS SHIPPER) lactated ringers IV soln infusion IntraVENous, at [...] BE BASED ON THE PRIMARY CLINICAL RECORDS. [facility]. provides no warranty or guarantee of the accuracy or completeness of information in this document.
== END 2025-01-14 08:03 | disposition home or self-care (01) ==
LOC: WC 01-15 08:02
PROVIDERS: Visit Provider Physician Assistant
DX: E11.621 Type 2 diabetes mellitus with foot ulcer (principal); L97.415 Non-pressure chronic ulcer of right heel and midfoot with muscle involvement without evidence of necrosis
CPT/HCPCS: 29445

== ENCOUNTER 2025-01-22 08:45 | Outpatient (OUT) | payer MEDICARE, MEDICAID, SELFPAY ==
--- OUTSIDE RECORDS SUMMARY | 2014-02-13 04:00 | XMS_ITS | Continuity of Care Document ---
Author Organization [facility] Address [address] [place] [address] Phone Care Team Providers Care Social Work Msw Name Role Phone Lazaro SUBHA July Unavailable [...] Provider Providers Copied on Encounter [facility], [address] [place] [address], [id number], [place] tel:[phone] Dental Clinic Dental examination Lazaro DMD July. [address] [place], [place], [id number], [place]. tel:[phone] [facility], [address] [place], [place], [id number], tel:[phone] Dental Clinic Dental examination Lazaro DMD Susan. [address] [place], [place], [id number], [place]. tel:[phone] [facility], [address] [place], [place], [id number], [place] tel:[phone] Dental Clinic Dental examination Sergey Higginbotham. [address] [place], [place], [id number], [place]. tel:[phone] Family History Family Member Type Diagnosis Age At Onset No Information Payers Payer name Insurance type Covered republican ID Lisbethrich fermin(s) D Medicaid Primary [facility] [id number] Social History Type Description Quantity Date Captured [...]
--- OUTSIDE RECORDS SUMMARY | 2025-01-23 16:04 | XMS_ITS | Clinical Summary ---
Author Organization [facility] Address [address] [place] [address] Care Team Providers Care Trademark Attorney Name Role Phone Unallocated, Noms Provider Primary [...] Vaccine (#1) 2024 03/16/2016, 2014 Insurance MEDICARE [facility] Care Teams Trademark Attorney Relationship Specialty Start Date End Date Unallocated, Noms Provider, [address] [place], [place] [id number] PCP - General 10/14/22
--- OUTSIDE RECORDS SUMMARY | 2025-01-23 19:27 | XMS_ITS ---
Author Name [employer] Organization OHIP PROBLEMS No Problem Records Found PROCEDURES No Procedure Records Found RESULTS RAD - OTHER RADIOLOGY REPORT Observed: 05/30/2024 4:27 PM Status: F [id number] RAD - OTHER RADIOLOGY REPORT Observed: 04/04/2024 4:24 PM Status: F Source: [place] [id number] OUTSIDE RECORDS Observed: 04/04/2024 4:21 PM Status: F Source[id number] OUTSIDE RECORDS Observed: 05/30/2023 4:26 PM Status: F Source: [id number] ALLERGIES No Allergies Records Found ENCOUNTERS No Encounter Records Found PAYERS No Payer Records Found
== END 2025-01-22 08:46 | disposition home or self-care (01) ==
LOC: WC 01-23 16:01
PROVIDERS: Visit Provider Physician Assistant
DX: E11.621 Type 2 diabetes mellitus with foot ulcer (principal); L97.415 Non-pressure chronic ulcer of right heel and midfoot with muscle involvement without evidence of necrosis
CPT/HCPCS: 29445; A6213

== ENCOUNTER 2025-01-29 10:04 | Outpatient (OUT) | payer MEDICARE, MEDICAID, SELFPAY ==
--- OUTSIDE RECORDS SUMMARY | 2024-02-15 04:15 | XMS_ITS ---
Author Organization The [facility] [place] Address [address] [facility] [facility] [place] [address] Care Team Providers Care Music Executive Name Role Phone Nahid HAMM, Mimi Primary Care Provider Jun Fair [phone] REASON FOR VISIT 3 weeks -- has new insurance Encounters Encounter Location Date Provider Diagnosis [facility] (PODIATRY) [address] [place] [address] [place] [address] 02/15/2024 Jun Gentile Plan Of Treatment No Information Progress Notes * Anita VANCEDOB: 8 (54 yo F)Acc No.[id number]:02/15/2024 UNLOCKED PROGRESS NOTE Follow Up Patient: Anita IBANEZ Provider: Rad Gentile DPM, MS :1970 A ge:53 Y S ex:Female Date:02/15/2024 Address:[address] [place], [place] [address] Pcp:Mimi Whitfield NP Subjective: * Chief Complaints: * 1 . 3 weeks -- has new insurance. * Medical History: Objective: * Vitals: Assessment: Plan: * Treatment: * * Electronic signature of Chad Gentile DPM on 01/29/2025 at 10:08 AM EDT Sign off status: Pending Visit Status: N /S N/C (No Show/No Charge) * Provider: Rad Gentile DPM, MS Date: Generated for Printi ng/Faxing/eTransmitting on: 5 10:08 AM EDT
--- OUTSIDE RECORDS SUMMARY | 2024-06-05 09:15 | XMS_ITS ---
Author Organization The [facility] in [place] Address [address] [facility] [place] [address] Care Team Providers Care Projection Printer Name Role Phone Nahid HAMM, Mimi Primary Care Provider Jun Fair Unavailable [phone] REASON FOR VISIT rt ankle pain/ swollen Encounters Encounter Location Date Provider Diagnosis [facility] (PODIATRY) [address] [place] [address] [place] [address] 06/05/2024 Jun Gentile Pain in right ankle [...] Notes * VANCEAnitaDOB: [birth year] (54 yo F)Acc No.[id number]:06/05/2024 UNLOCKED PROGRESS NOTE Follow Up Patient: Anita IBANEZ Provider: Rad Getnile DPM MS :1970 A ge:54 Y S ex:Female Date:06/05/2024 [address] [facility] [id number] Pcp:Mimi Whitfield NP Subjective: * Chief Complaints: * 1 . Rt ankle pain/ swollen. * Medical History: Objective: * Vitals: Assessment: * Assessment: 1. P ain in right ankle and joints of right foot - M25.571 Plan: * Treatment: * * Electronic signature of Chad Gentile DPM on 01/29/2025 at 10:07 AM EDT Sign off status: Pending Visit Status: C ANC (Cancelled) * Provider: Rad eGntile DPM, MS Date: 0 06/05/2024 Generated for Jacki gallo/Saloni/Pippa on: 1 10:07 AM EDT
--- OUTSIDE RECORDS SUMMARY | 2024-09-06 05:30 | XMS_ITS ---
Author Organization [facility] es Address [address] [place] [address] Care Team Providers Care Toilet Products Molder Name Role Phone Mamadou Chang Primary Care Provider REASON FOR VISIT est care Encounters Encounter Location Date Provider Diagnosis [facility] [address] [facility] [place] [address] 09/06/2024 Mamadou Chang Plan Of Treatment No Information Progress Notes * GEETA VANCEDOB: [birth year] (54 yo F)Acc No.[id number]:09/06/2024 Progress Notes Patient: Kaylin FEITRICIAGEETA Provider: Kaylin Chang DO :1970 A ge:54 Y S ex:Female Date:09/06/2024 Address:[address] [facility] [place], [id number] Subjective: * Chief Complaints: * 1 . Est care. * Medical History: Objective: * Vitals: Assessment: Plan: * Treatment: * Images: * Electronic signature of Debo Chang DO, [email or web address] on 01/29/2025 at 10:07 AM EDT Sign off status: Pending * Provider: Kaylin Chang DO Date: 0 09/06/2024 Generated for Jacki gallo/Saloni/eTeastonsmitting on: 10:07 AM EDT
--- OUTSIDE RECORDS SUMMARY | 2024-09-20 05:30 | XMS_ITS ---
Author Organization [facility] es Address [address] [place] [address] Care Team Providers Care Greens Tier Name Role Phone Mamadou Chang Primary Care Provider REASON FOR VISIT EST CARE-NEW TO YOU Encounters Encounter Location Date Provider Diagnosis [facility] [address] [place] [place] [address] 09/20/2024 Mamadou Chang Plan Of Treatment No Information Progress Notes * GEETA VANCEDOB: [birth year] (54 yo F)Acc No.[id number]:09/20/2024 Progress Notes Patient: Kaylin PLASCENCIAGEETA Provider: Kaylin Chang DO :1970 A ge:54 Y S ex:Female Date:09/20/2024 [id number] Subjective: * Chief Complaints: * 1 . EST CARE-NEW TO YOU. * Medical History: Objective: * Vitals: Assessment: Plan: * Treatment: * Images: * Electronic signature of Debo Chang DO, [id number] on 01/29/2025 at 10:08 AM EDT Sign off status: Pending * Provider: Kaylin Chang DO Date: 0 09/20/2024 Generated for Jacki ng/Saloni/eTransmitting on: 10:08 AM EDT
--- OUTSIDE RECORDS SUMMARY | 2025-01-29 10:08 | XMS_ITS | Patient Health Record ---
Author Organization [facility] [place] Address [address] [place] [address] Care Team Providers Care Core Rescuer Name Role Phone Nahid HAMM, Mimi Primary Care Provider UnavailHilda Call Unavailable [phone] Yonny Quinn Unavailable [phone] Allergies Allergen (clinical drug ingredient) Drug/Non Drug Allergy documented on EMR Reaction Allergy Type Onset Date Status Penicillin Unknown Drug Allergy Active Results Component Value Reference Range Notes VC SEGMENTAL PRESSURES Reviewed date:06/04/2024 01:00:24 PM Interpretation: Performing Lab: Notes/Report: Source Facility: [place] [address] Vein Report Signed Patient: GEETA VANCE MR#: [id number] : 1970 Acct:[id number] Age/Sex: 54 / F ADM Date: 03/20/24 Loc: VC Attending Dr: Hilda Gentile D.P.M. Ordering Physician: Hilda Gentile D.P.M. Date of Service: 03/20/24 Procedure(s): VC SEGMENTAL PRESSURES Accession Number(s): [id number] cc: Hilda Gentile D.P.M.; Physician,Non-Staff [employer] [facility] [place] [address] Patient Name: GEETA VANCE MRN: [id number] date: 1970 Sex: F Assigned Patient Location: VC Current Patient Location: Accession/Order Number: [id number] Exam Date: 03/20/2024 14:44 Report Date: 03/26/2024 07:54 At the request of: HILDA GENTILE Procedure: VC SEGMENTAL PRESSURES EXAM: VC SEGMENTAL PRESSURES HISTORY: R09.89 COMPARISON: None. FINDINGS: Segmental pressures presented as follows (right, left) in mmHg. Brachial: 154, 164 Lower thigh: 219, 214 Calf: 178, 204 DPA: 105, 79 UPHOLSTERY AUTO TRIMMER: 158, 118 1st Toe: 211, 200 PEG: [...] Cagle M.D. Signed By: 03/26/24 0756 DD/ 0754 TD/TT: Deaf/Hard Of Hearing Specialist: CBC AUTO DIFF Reviewed date:06/03/2024 11:04:29 AM Interpretation: Performing Lab: Notes/Report: [facility] , White Blood Count 13.1 4.0-11.0 10 [...] Performing Lab: see note ML - [facility] LB CBC AUTO DIFF Reviewed date:06/05/2024 12:41:43 PM Interpretation: Performing Lab: Notes/Report: [facility] , White Blood Count 9.1 4.0-11.0 10 [...] 3/uL Performing Lab: see note ML - [facility] LB CRP Reviewed date:06/05/2024 12:41:43 PM Interpretation: Performing Lab: Notes/Report: [facility] , C Reactive Protein 12.54 <=0.50 mg/dL Performing Lab: see note - [facility] LB PROF CHEM 8 (BAS METB) Reviewed date:06/05/2024 12:41:43 PM Interpretation: Performing Lab: Notes/Report: [facility] , Sodium 135 136-145 mmol/L Potassium 4.1 [...] mg/dL Performing Lab: see note ML - [facility] LB PROF CHEM 8 (BAS METB) Reviewed date:06/04/2024 01:00:24 PM Interpretation: Performing Lab: Notes/Report: [facility] , Sodium 137 136-145 mmol/L Potassium 3.6 [...] mg/dL Performing Lab: see note ML - [facility] LB CRP Reviewed date:06/04/2024 01:00:24 PM Interpretation: Performing Lab: Notes/Report: [facility] , C Reactive Protein 18.96 <=0.50 mg/dL Performing Lab: see note ML - [facility] LB CBC AUTO DIFF Reviewed date:06/04/2024 01:00:24 PM Interpretation: Performing Lab: Notes/Report: [facility] , White Blood Count 11.4 4.0-11.0 10 [...] Performing Lab: see note ML - [facility] LB PROF CHEM 8 (BAS METB) Reviewed date:06/03/2024 11:04:29 AM Interpretation: Performing Lab: Notes/Report: [facility] , Sodium 135 136-145 mmol/L Potassium 4.1 [...] mg/dL Performing Lab: see note ML - [facility] LB CRP Reviewed date:06/03/2024 11:04:29 AM Interpretation: Performing Lab: Notes/Report: [facility] , C Reactive Protein 28.73 <=0.50 mg/dL Performing Lab: see note ML - [facility] LB Aerobic Culture (Not yet rev [...] Rifampin S F Aerobic Culture Performed at: [facility] Organism: 2.2 Clindamycin O:STAAUR Oxacillin S F [...] F Rifampin S F Aerobic Culture [address] [place], [place] [id number] Organism: 2.2 Clindamycin O:STAAUR Oxacillin S F [...] S F Rifampin S F Aerobic Culture Learning Officer: Torey Duncan PhD, Phone: [phone] Organism: 2.2 Clindamycin O:STAAUR Oxacillin S F [...] LC - [facility] LB SEE REPORT - Filter Cloth Maker Id information not found for OBX-specific director of automation legend Anaerobic Culture (Not yet r eviewed by provider) Interpretation: Performing Lab: Notes/Report: [facility] , Anaerobic Culture See Below For Report Isolated O:PREVSP Anaerobic Culture Anaerobic Culture Specimen has been received and testing has been initiated. Isolated O:PREVSP Anaerobic Culture Anaerobic Culture Organism: Prevotella species : Isolated O:PREVSP Anaerobic Culture Anaerobic Culture *ABNORMAL* Isolated O:PREVSP Anaerobic Culture Anaerobic Culture Studies at [employer] have confirmed the Isolated O:PREVSP Anaerobic Culture Anaerobic Culture observations of [facility] who have demonstrated that Isolated O:PREVSP Anaerobic [...] O:STAAUR Organism: 1.2 Aerobic Culture Performed at: [facility] Organism: Staphylococcus aureus : Antibiotic Interpretation MARIA ELENA Status O:BETAGC Aerobic Culture Isolated Isolated O:STAAUR Organism: 1.2 Aerobic Culture [address], [place] [id number] Organism: Staphylococcus aureus : Antibiotic Interpretation MARIA ELENA Status O:BETAGC Aerobic Culture Isolated Isolated O:STAAUR Organism: 1.2 Aerobic Culture Learning Officer: Torey Duncan PhD, Phone: [phone] Organism: Staphylococcus aureus : Antibiotic Interpretation MARIA [...] LC - [facility] LB SEE REPORT - Filter Cloth Maker Id information not found for OBX-specific director of automation legend CT foot RT w con Reviewed date:06/03/2024 11:04:29 AM Interpretation: Performing Lab: Notes/Report: Source Facility: [place] [address] CT Scan Report Signed Patient: GEETA VANCE MR#: [id number] : 1970 Acct:[id number] Age/Sex: 54 / F ADM Date: 06/02/24 Loc: ICU 276-[address]: Tasha Quinn M.D. Ordering Physician: Tasha Quinn M.D. Date of Service: 06/02/24 Procedure(s): CT foot RT w con Accession Number(s): [id number] cc: [facility] [address] Patient Name: GEETA VANCE MRN: [id number] date: 1970 Sex: F Assigned Patient Location: ICU Current Patient Location: ICU Accession/Order Number: [id number] Exam Date: 06/02/2024 16:38 Report Date: 06/02/2024 [...] evidence of osteomyelitis. No fractures. There is [id number]-mq-[id number] degenerative ankle mortise narrowing and osteoarthritis. Subtalar [...] D.O. Signed By: 06/02/241948 DD/ 45 TD/TT: Deaf/Hard Of Hearing Specialist: PROF LAURENCE Guzman ([facility]) Reviewed date:06/06/2024 09:18:06 PM Interpretation: Performing Lab: Notes/Report: [facility] , Sodium 135 136-145 mmol/L Potassium 4.3 [...] Performing Lab: see note ML - [facility] LB CRP Reviewed date:06/06/2024 09:18:06 PM Interpretation: Performing Lab: Notes/Report: [facility] , C Reactive Protein 9.36 <=0.50 mg/dL Performing Lab: see note ML - [facility] LB CBC AUTO DIFF Reviewed date:06/06/2024 09:18:06 PM Interpretation: Performing Lab: Notes/Report: [facility] , White Blood Count 9.3 4.0-11.0 10 [...] Performing Lab: see note ML - [facility] Reason For Referral Reason PEG/PVR Diagnosis 1 Charcot's joint, lef t ankle and foot (M14.672) Referral Organization [facility] (PODIATRY) Referring Provider First Name Hilda Referring [...] Status Risk Notes Problem Peripheral vascular disease (462225542) Peripheral vascular disease, unspecified (I73.9) Active confirmed Problem Polyneuropathy due to type 2 diabetes mellitus (909537926) Type 2 diabetes mellitus with diabetic polyneuropathy (E11.42) Active confirmed Problem Foot ulcer due to type 2 diabetes mellitus (8746113574038) Type 2 diabetes mellitus with foot ulcer (E11.621) Active confirmed Problem Pressure ulcer o f other site, stage 1 (L89.891) Active confirmed Problem Chronic ulcer of foot (196785887) 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) Active confirmed Problem Arthropathy associated with a neurological disorder (99045361) Charcot's joint, left ankle and foot (M14.672) Active confirmed Problem Arthralgia of the ankle and/or foot (411802399) Pain in right ankle and joints of right foot (M25.571) Active confirmed Problem Arthralgia of the ankle and/or foot (841167004) Pain in left ankle and joints of left foot (M25.572) Active confirmed Problem Closed fracture of calcaneus (13404808) Displaced avulsion fracture of tuberosity of left calcaneus, initial encounter for closed fracture (S92.032A) Active confirmed Problem Essential hypertension (38894905) Benign essential HTN (I10) Active confirmed Problem Neuropathy (425765159) Neuropathy (G62.9) Active confirmed Problem Leukocytosis (438582275) Leukocytosis (D72.829) Active confirmed Problem Sepsis (44978116) Sepsis (A41.9) Active confirm ed Problem Culture positive for methicillin resistant Staphylococcus aureus (657222264) MRSA (methicillin resistant staph aureus) culture positive (Z22.322) Active confirmed Problem Non-pressure chronic ulcer of right heel and midfoot with muscle involvement without evidence of necrosis (L97.415) Active confirmed Problem Chronic ulcer of right heel with fat layer exposed (L97.412) Active confirmed Problem Chronic ulcer of right foot (disorder) (5483278705934696 0) Chronic ulcer of right foot with fat layer exposed (L97.512) Active confirmed Vital Signs Heart Rate 74 /min 03/28/2024 Temperature 97.1 degrees Fahrenheit 03/28/2024 Oximetry 96 % 03/28/2024 Height 65 in 06/11/2024 Weight 260 lbs 03/13/2024 BMI 43.26 kg/m2 03/13/2024 Encounters Encounter Location Date Provider Diagnosis [facility] (PODIATRY) [address] [place] [address] [place] [address] 02/15/2024 Hilda Gentile Displaced avulsion fracture of tuberosity of left calcaneus, initial encounter for closed fracture S92.032A [facility] (PODIATRY) [address] [place], [place] [address] [address] 03/13/2024 Hilda Gentile Charcot's joint, lef t ankle and foot M14.672 ; Peripheral vascular disease, unspecified I73.9 and Type 2 diabetes mellitus with diabetic polyneuropathy E11.42 [facility] (PODIATRY) [address] [place], [place] [address] [address] 03/28/2024 Hilda Gentile Charcot's joint, lef t ankle and foot M14.672 ; Displaced avulsion fracture of tuberosity of left calcaneus, initial encounter for closed fracture S92.032A ; Type 2 diabetes mellitus with diabetic polyneuropathy E11.42 and Peripheral vascular disease, unspecified I73.9 [facility] [address] [facility] [place] [address] 06/11/2024 Yonny Hoy Sepsis A41.9 and MRS Kaylin (methicillin resistant staph aureus) culture positive Z22.322 [facility] (PODIATRY) [address] [place] [address] [place] [address] 01/30/2024 Hilda Gentile Assessments Encounter Date Diagnosis (ICD Code) Assessment Notes Treatment Notes Treatment Clinical Notes Section Notes 02/15/2024 Displaced avulsion fracture of tuberosity of [...] Insured Coverage Start Date Coverage End Date [facility] PRIMARY MEDICARE [address] [address] [place] [address] [id number] Geeta Chua Self - patient is the insured 5 [employer] [place] [employer] [address] [facility] [address] [place] [address] [id number] Geeta Vance Self - patient is the insured 4 MED[place]ID [place] 2ND INS [address] [facility] [address] [place], [place] [id number] [id number] Geeta Vance Self - patient is the insured Medical (General) History Medical History History ICD Code diabetes neuropathy asthma high blood pressure Surgical History Surgery Date(Month/Year) Right knee replacement Left knee replacement
--- OUTSIDE RECORDS SUMMARY | 2025-01-29 10:08 | XMS_ITS | Patient Health Record ---
Author Organization [facility] es Address [address] [place] [address] Care Team Providers Care Loan Review Manager Name Role Phone Mamadou Chang Primary Care Provider [phone] Maye Burger Unavailable Zuly Neville Unavailable [phone] Brody Garces Unavailable [phone] Allergies Allergen (clinical drug ingredient) Drug/Non Drug Allergy documented on EMR Reaction Allergy Type Onset Date Status penicillamine Penicillamine hives Drug Allergy Active Results Component Value Reference Range Notes Hemoglobin A1c Reviewed date:06/20/2024 11:11:42 AM Interpretation:7.1 Performing Lab: Notes/Report: 7.1 Hemoglobin A1c 7.1 5 - 7.9 % Hemoglobin A1c Reviewed date:11/15/2024 08:55:09 AM Interpretation:6.8% [...] due to m enopause (N95.1) Referral Organization [facility] ices Referring Provider First Name Brody Referring [...] per day; Duration: 90 days 02/13/2025 Active rOPINIRole HCl 2 MG TAKE 1 TABLET BY MOUTH TWICE A DAY; Duration: 90 days Active Montelukast Sodium 10 MG TAKE 1 [...] 4 hrs; Duration: 21 days PRN Active Celecoxib 200 MG TAKE 1 CAPSULE [...] OLDER Unknown 03/05/2016 Administered was given at [facility] Social History Tobacco Use: Social [...] 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 Stress is when someone feels tense, nervous, anxious, or cant sleep at night because their mind is troubled Somewhat In the past year have you sp ent more than 2 nights in a row in a [place] health [place] facility, care home, custodial center, or juvenile correctional facility? No Are [...] Notes: neg etoh and tobacco. works at [employer]. neg etoh and tobacco. works at [employer]. neg etoh and tobacco. works at [employer]. 01-10-12: DENIES TOBACCO. DEN IES ETOH. DENIES [...] DEN IES ETOH. DENIES ILLEGAL DRUG USE. 08/27/15: DENIES TOBACCO, ETOH AND IDU 04/04/15: DENIES TOBACCO, ETHO AND ILLEGAL DRUG USE. 01-10-12: DENIES TOBACCO. DENIES ETOH. DENIES ILLEGAL DRUG USE. 01-10-12: DENIES TOBACCO. DEN IES ETOH. DENIES ILLEGAL DRUG USE. 01-10-12: DENIES TOBACCO. DEN IES ETOH. DENIES ILLEGAL DRUG USE. 08/27/15: DENIES TOBACCO, ETOH AND IDU 04/04/15: DENIES TOBACCO, ETHO AND ILLEGAL DRUG USE. 01-10-12: DENIES TOBACCO. DENIES ETOH. DENIES ILLEGAL DRUG USE. 01-10-12: DENIES TOBACCO. DEN IES ETOH. DENIES ILLEGAL DRUG USE. neg etoh and tobacco. works at [employer]. neg etoh and tobacco. works at [employer]. 08/27/15: DENIES TOBACCO, ETOH AND IDU 04/04/15: [...] Problem Type II diabetes mellitus without complication (008461173) Type 2 diabetes mellitus without complications (E11.9) Active confirmed Problem Morbid obesity (disorder) (066999338) Morbid (severe) obesity due to excess calories (E66.01) Active confirmed Problem Osteoarthritis of knee (137034686) Osteoarthritis of knee, unspecified (M17.9) Active confirmed Problem Postmenopausal bleeding (41777516) Postmenopausal bleeding (N95.0) Active confirmed Problem Essential hypertension (82327210) Essential hypertension (I10) Active confirmed Problem Mood swings (51737120) Mood swings (F39) Active confirmed Problem Mixed anxiety and depressive disorder (367356740) Depression with anxiety (F41.8) Active confirmed Problem Restless legs (97251330) Restless leg (G25.81) Active confirmed Problem Skin sensation disturbance (40247018) Arm paresthesia, left (R20.2) Active confirmed Problem Peripheral vascular disease (021738612) Peripheral vascular disease (I73.9) Active confirmed Problem Female urinary stress incontinence (93208408) Stress incontinence in female (N39.3) Active confirmed Problem Dysphagia (05091609) Dysphagia, unspecified type (R13.10) Active confirmed Problem Moderate persistent asthma (110021861) Moderate persistent asthma (J45.40) Active confirmed Problem Type II diabetes mellitus without complication (776037963) Type 2 diabetes mellitus without complication, without long-term current use of insulin (E11.9) Active confirmed Problem Menopausal symptom (65994826) Hot flashes due to menopause (N95.1) Active confirmed Problem Abnormal vaginal bleeding (862700680) Abnormal vaginal bleeding (N93.9) Active confirmed Vital Signs Heart Rate 83 /min 11/26/2024 Temperature 97.8 degrees Fahrenheit 11/15/2024 Respiratory Rate 20 /min 11/26/2024 Blood pressure diastolic 82 mm Hg 11/26/2024 Oximetry 95 % 11/26/2024 Height 65 in 11/26/2024 Blood pressure systolic 137 mm Hg 11/26/2024 Weight 256 lbs 11/26/2024 BMI 42.6 kg/m2 11/26/2024 Encounters Encounter Location Date Provider Diagnosis [facility] [address] [place] [address] 04/30/2024 Maye Burger [facility] [address] [place] [address] 05/14/2024 Maye Burger Stress incontinence in female N39.3 [facility] [address] [facility] [address] 06/08/2024 Maye Burger [facility] [address] [place] [address] 08/23/2024 Mamadou Chang [facility] [address] [place] [address] 09/26/2024 Mamadou Chang [facility] [address] [place] [address] 11/12/2024 Mamadou Chang [facility] [address] [place] [address] 11/13/2024 Mamadou Chang [facility] [address] [place] [address] 01/22/2025 Mamadou Chang Restless leg G25.81 [facility] [address] [place] [address] 01/23/2025 Mamadou Chang Restless leg G25.81 [facility] [address] [facility] [place] [address] 11/26/2024 Mamadou Bernardo Acute folliculitis L73.9 and Cellulitis, unspecified L03.90 [facility] [address] [place] [address] 11/15/2024 Brody Garces Mood swings F39 ; Type 2 diabetes mellitus without complications E11.9 ; Restless leg G25.81 ; Moderate persistent asthma J45.40 ; Hot flashes due to menopause N95.1 and Rash and nonspecific skin eruption R21 [facility] [address] [place] [address] 01/30/2024 Maye Blissson Type 2 diabetes mellitus without complication, without long-term current use of insulin E11.9 ; Restless leg G25.81 and Stress incontinence in female N39.3 [facility] [address] [facility] [facility] [place] [address] 06/20/2024 Maye Burger Restless leg G25.81 ; [...] in 3 months or sooner as needed. 11/26/2024 Cellulitis, unspecified (ICD-10 - L03.90) 11/26/2024 [...] improvement and to follow up if needed. 01/22/2025 Restless leg (ICD-10 - G25.81) 01/23/2025 Restless leg (ICD-10 - G25.81) 11/15/2024 Type 2 diabetes mellitus without complications (ICD-10 - E11.9) A1c in office today at 6.8% down from 7.1% - she would like to continue diet and lifestyle modifications versus medication at this time; encouraged limiting carbohydrate intake and 30+ minutes of cardiovascular exercise at least 3x/week. Plan to followup A1c check in 3 months. 11/15/2024 Restless leg (ICD-10 - G25.81) Pt [...] and breast ca. Will place referral to city auditor today to schedule pap as well as [...] and has an appt on Tuesday. Declines QUALITY ENGINEERING MANAGER to examine foot. Dressing dry and intact. Completing antibiotics. Education on good glycemic control to help with healing. Plan Of Treatment No Information Insurance Providers Payer Name Payer Address Payer Phone Subscriber Number Group Number Insured Name Patient Relationship to Insured Coverage Start Date Coverage End Date MEDICARE CGS 1 [facility] [place] [phone] [id number] P[employer] GEETA Self - patient is the insured 4 [facility] Medicaid [address] [place] [address] [phone] [id number] PINKY GEETA Self - patient is the insured 4 4 MEDICAID SEC TO [facility] [address] [place] [address] [phone] [id number] PINKY GEETA Self - patient is the insured 4 [facility] [address] [place] [address] [phone] [id number] GEETA VANCE Self - patient is the insured 4 4 [facility] [place] [address] [place] [address] [id number] GEETA VANCE Self - patient is the insured 8 1 [employer] [address] [place] [address] [id number] [id number] GEETA VANCE Self - patient is the insured 1 1 [facility] [place] [address] [address] [place] [address] [id number] GEETA VANCE Self - patient is the [...]
--- OUTSIDE RECORDS SUMMARY | 2025-01-29 10:08 | XMS_ITS | Clinical Summary ---
Author Organization [facility] Address [address] [place] [address] Care Team Providers Care Enlisted Aircrew/Aerial Observer/Gunner Name Role Phone Unallocated, Noms Provider Primary [...] Vaccine (#1) 2024 03/16/2016, 2014 Insurance MEDICARE [facility] Care Teams Enlisted Aircrew/Aerial Observer/Gunner Relationship Specialty Start Date End Date Unallocated, Noms Provider, [address] [place], [place] [phone] PCP - General 10/14/22
--- OUTSIDE RECORDS SUMMARY | 2025-01-29 10:16 | XMS_ITS | CCD ---
Author Organization [facility] Care Team Providers Care City Recorder Name Role Phone RHEA Alvarado Attending Provider [facility] Primary Care Provider RHEA Alvarado Primary Care Provide r CARLI Villeda Attending Provider [phone] RHEA Alvarado Primary Care Provide r CARLI [...] source) Ibuprofen Drug Allergy 4 Unknown Reaction [facility] Penicillins (antibiotic) (2 sources) Penicillin Drug Allergy 4 hives [facility] (20 sources) Penicillins; Translations: [Penicillins] Allergy to substance 8 Anaphylaxis [facility] (6 sources) Ibuprofen; Translations: [ibuprofen] Drug Allergy 3 Unknown Reaction [facility] (3 sources) Penicillin V Drug Allergy 3 hives [facility] (1 source) Penicillin Drug Allergy 4 [facility] Repository Medications Current Medications Medication Drug Class(es) Dates Sig (Normalized) Sig (Original) acetaminophen 325 mg oral tablet (2 sources) Start: 07-01-2022 acetaminophen (TYLENOL) tablet 650 mg Start: 07-01-2022 End: 07-01-2022 acetaminophen (TYLENOL) tabl et 1,000 mg [id number] 200 actuat albuterol 0.09 mg/actuat metered dose [...] disintegrating tablet 4 mg polyethylene glycol 3350 93427 mg powder for oral solution (1 source) [...] Inhalation, 2 TIMES DAILY, First dose on [facility] 07/01/22 at 2000, Until Discontinued Substituted [...] Range Facility Outside Recordson 06-11-2024 Outside Records [id number] [facility] Rad - Other Radiology Report on 06-11-2024 Rad - Other Radiology Report [id number]#[id number] [facility] Rad - Other Radiology Report [id number]#[id number] [facility] Alanine aminotransferase [En zymatic activity/volume] in Serum or PlasmaOrdered By: Krzysztof Salazar on 09-20-2023 ALT [Catalytic activity/Vol] 33 U/L 7-52 [facility] Albumin [Mass/volume] in Ser um or PlasmaOrdered By: Krzysztof Salazar on 09-20-2023 Albumin [Mass/Vol] 3.8 g/dL 2.9-4.4 [facility] Albumin [Mass/volume] in Ser um or Plasma by Bromocresol green (BCG) dye binding methoOrdered By: Krzysztof Salazar on 09-20-2023 Albumin BCG dye [Mass/Vol] 4.2 g/dL 3.5-5.7 [facility] Alkaline phosphatase [Enzyma tic activity/volume] in Serum or PlasmaOrdered By: Krzysztof Salazar on 09-20-2023 ALP [Catalytic activity/Vol] 79 U/L 34-104 [facility] Aspartate aminotransferase [ Enzymatic activity/volume] in Serum or PlasmaOrdered By: Krzysztof Salazar on 09-20-2023 AST [Catalytic activity/Vol] 30 U/L 13-39 [facility] Basophils Auto (Bld) [#/Vol] Ordered By: Krzysztof Salazar on 09-20-2023 Basophils (Bld) [#/Vol] 0.0 10*3/uL 0.0-0.2 [facility] Basophils/100 WBC Auto (Bld) Ordered By: Krzysztof Salazar on 09-20-2023 Basophils/100 WBC (Bld) 0.5 % . [facility] Bilirubin.total [Mass/volume ] in Serum or PlasmaOrdered By: Krzysztof Salazar on 09-20-2023 Bilirubin [Mass/Vol] 0.6 mg/dL 0.3-1.0 [facility] Calcium [Mass/volume] in Ser um or PlasmaOrdered By: Krzysztof Salazar on 09-20-2023 Calcium [Mass/Vol] 9.7 mg/dL 8.6-10.3 [facility] Carbon dioxide, total [Moles /volume] in Serum or PlasmaOrdered By: Krzysztof Salazar on 09-20-2023 CO2 [Moles/Vol] 32.4 mmol/L 21.0-31.0 [facility] Chloride [Moles/volume] in S hugo or PlasmaOrdered By: Krzysztof Salazar on 09-20-2023 Chloride [Moles/Vol] 97 mmol/L 98-107 [facility] Creatinine [Mass/volume] in Serum or PlasmaOrdered By: Krzysztof Salazar on 09-20-2023 Creatinine [Mass/Vol] 0.60 mg/dL 0.60-1.20 [facility] Eosinophils Auto (Bld) [#/Vo l]Ordered By: Krzysztof Salazar on 09-20-2023 Eosinophils (Bld) [#/Vol] 0.2 10*3/uL 0.0-0.45 [facility] Eosinophils/100 WBC Auto (Bl d)Ordered By: Krzysztof Salazar on 09-20-2023 Eosinophils/100 WBC (Bld) 2.6 % . [facility] Erythrocyte distribution wid th Auto (RBC) [Ratio]Ordered By: Krzysztof Salazar on 09-20-2023 Erythrocyte distribution width (RBC) [Ratio] 16.7 % 11.9-15.3 [facility] Ferritin [Mass/volume] in Se rum or PlasmaOrdered By: Krzysztof Salazar on 09-20-2023 Ferritin [Mass/Vol] 92.7 ng/mL 11.0-306.8 [facility] Globulin Calc (S) [Mass/Vol] Ordered By: Krzysztof Salazar on 09-20-2023 Globulin (S) [Mass/Vol] 3.5 g/dL [facility] Glucose [Mass/volume] in Ser um or PlasmaOrdered By: Krzysztof Salazar on 09-20-2023 Glucose [Mass/Vol] 123 mg/dL 70-100 [facility] Comment on above: ADA recommended refe rence rangeRandom Glucose Reference Range is dependent on time and content of last meal. Glucose of more than 200 mg/dL in a nonstressed, ambulatory subject supports the diagnosis of Diabetes Mellitus. Hematocrit Auto (Bld) [Volum e fraction]Ordered By: Krzysztof Salazar on 09-20-2023 Hematocrit (Bld) [Volume fraction] 38.3 % 34.0-46.4 [facility] Hemoglobin [Mass/volume] in BloodOrdered By: Krzysztof Salazar on 09-20-2023 Hemoglobin (Bld) [Mass/Vol] 12.5 g/dL 11.8-15.4 [facility] IgA [Mass/volume] in Serum o r PlasmaOrdered By: rKzysztof Salazar on 09-20-2023 IgA [Mass/Vol] 409 mg/dL 87-352 [facility] IgG [Mass/volume] in Serum o r PlasmaOrdered By: Krzysztof Salazar on 09-20-2023 IgG [Mass/Vol] 1704 mg/dL 586-1602 [facility] IgM [Mass/volume] in Serum o r PlasmaOrdered By: Krzysztof Salazar on 09-20-2023 IgM [Mass/Vol] 122 mg/dL 26-217 [facility] Comment on above: Performed at: [address] [id number] Director: Jeyson Duncan PhD, Phone: [phone] Immunoglobulin light chains. kappa.free [Mass/volume] in SerumOrdered By: Krzysztof Salazar on 09-20-2023 Immunoglobulin light chains.kappa.free (S) [Mass/Vol] 30.9 mg/L 3.3-19.4 [facility] Immunoglobulin light chains. kappa.free/Immunoglobulin light chains.lambda.free [MassOrdered By: Krzysztof Salazar on 09-20-2023 Immunoglobulin light chains.kappa.free/Immuno globulin light chains.lambda.free (S) [Mass ratio] 1.17 0.26-1.65 [facility] Comment on above: Performed at: [address] [id number] Director: Jeyson Duncan PhD, Phone: [phone] Immunoglobulin light chains. lambda.free [Mass/volume] in Serum or PlasmaOrdered By: Krzysztof Salazar on 09-20-2023 Immunoglobulin light chains.lambda.free [Mass/Vol] 26.4 mg/L 5.7-26.3 [facility] Iron [Mass/volume] in Serum or PlasmaOrdered By: Krzysztof Salazar on 09-20-2023 Iron [Mass/Vol] 74 ug/dL 50-212 [facility] Iron binding capacity [Mass/ volume] in Serum or PlasmaOrdered By: Krzysztof Salazar on 09-20-2023 Iron binding capacity [Mass/Vol] 344 ug/dL 255-450 [facility] Iron saturation [Mass Fracti on] in Serum or PlasmaOrdered By: Krzysztof Salazar on 09-20-2023 Iron saturation [Mass fraction] 21.5 % 20-50 [facility] Leukocytes [#/volume] correc silverio for nucleated erythrocytes in Blood by Automated counOrdered By: Kzrysztof Salazar on 09-20-2023 WBC corrected for nucl RBC Auto (Bld) [#/Vol] 8.5 10*3/uL 3.8-11.6 [facility] Lymphocytes Auto (Bld) [#/Vo l]Ordered By: Krzysztof Salazar on 09-20-2023 Lymphocytes (Bld) [#/Vol] 2.1 10*3/uL 1.00-4.8 [facility] Lymphocytes/100 WBC Auto (Bl d)Ordered By: Krzysztof Salazar on 09-20-2023 Lymphocytes/100 WBC (Bld) 24.7 % . [facility] MCH Auto (RBC) [Entitic mass ]Ordered By: Krzysztof Salazar on 09-20-2023 MCH (RBC) [Entitic mass] 25.8 pg 24.7-34.3 [facility] MCHC Auto (RBC) [Mass/Vol]Or dered By: Krzysztof Salazar on 09-20-2023 MCHC (RBC) [Mass/Vol] 32.7 g/dL 32.0-35.0 [facility] MCV Auto (RBC) [Entitic vol] Ordered By: Krzysztof Salazar on 09-20-2023 MCV (RBC) [Entitic vol] 78.7 fL 80-100 [facility] Monocytes Auto (Bld) [#/Vol] Ordered By: Krzysztof Salazar on 09-20-2023 Monocytes (Bld) [#/Vol] 0.7 10*3/uL 0.0-0.8 [facility] Monocytes/100 WBC Auto (Bld) Ordered By: Krzysztof Salazar on 09-20-2023 Monocytes/100 WBC (Bld) 7.9 % . [facility] Neutrophils Auto (Bld) [#/Vo l]Ordered By: Krzysztof Salazar on 09-20-2023 Neutrophils (Bld) [#/Vol] 5.5 10*3/uL 1.8-7.7 [facility] Neutrophils/100 WBC Auto (Bl d)Ordered By: Krzysztof Salazar on 09-20-2023 Neutrophils/100 WBC (Bld) 64.3 % . [facility] No Panel InformationOrdered By: Krzysztof Salazar on 09-20-2023 Estimated GFR (CKD-EPI) > 60.0 mL/Min [facility] Creatinine Clearance (Chem 143.32 [facility] Protein Electrophoresis M-Antwan Not observed g/dL Not Observed [facility] Protein Electrophoresis Note See comment . [facility] Comment on above: Protein electrophore sis scan will follow via computer,mail, or escrow manager delivery. Serum Immunofixation See comment . [facility] Comment on above: No monoclonality det ected. Nucleated erythrocytes [Pres ence] in Blood by Automated countOrdered By: Krzysztof Salazar on 09-20-2023 Nucleated RBC Auto Ql (Bld) 0.1 /100{WBC} 0-0.5 [facility] Platelet mean volume Auto (B ld) [Entitic vol]Ordered By: Krzysztof Salazar on 09-20-2023 Platelet mean volume (Bld) [Entitic vol] 8.8 fL 6.3-10.7 [facility] Platelets Auto (Bld) [#/Vol] Ordered By: Krzysztof Salazar on 09-20-2023 Platelets (Bld) [#/Vol] 271 10*3/uL 150-450 [facility] Potassium [Moles/volume] in Serum or PlasmaOrdered By: Krzysztof Salazar on 09-20-2023 Potassium [Moles/Vol] 4.4 mmol/L 3.5-5.1 [facility] Protein [Mass/volume] in Ser um or PlasmaOrdered By: Krzysztof Salazar on 09-20-2023 Protein [Mass/Vol] 7.7 g/dL 6.4-8.9 [facility] Protein [Mass/Vol] 7.8 g/dL 6.0-8.5 [facility] RBC Auto (Bld) [#/Vol]Ordere d By: Krzysztof Salazar on 09-20-2023 RBC (Bld) [#/Vol] 4.86 10*6/uL 3.60-5.00 [facility] Serum globulin measurement ( mass/volume)Ordered By: Krzysztof Salazar on 09-20-2023 Globulin (S) [Mass/Vol] 4.0 g/dL 2.2-3.9 [facility] Serum or plasma albumin/glob ulin mass ratioOrdered By: Krzysztof Salazar on 09-20-2023 Albumin/Globulin [Mass ratio] 1.2 {ratio} [facility] Albumin/Globulin [Mass ratio] 1.0 {ratio} 0.7-1.7 [facility] Serum or plasma alpha 1 glob ulin measurement by electrophoresis (mass/volume)Ordered By: Krzysztof Salazar on 09-20-2023 Alpha 1 globulin Elph [Mass/Vol] 0.3 g/dL 0.0-0.4 [facility] Serum or plasma alpha 2 glob ulin measurement by electrophoresis (mass/volume)Ordered By: Krzysztof Salazar on 09-20-2023 Alpha 2 globulin Elph [Mass/Vol] 0.8 g/dL 0.4-1.0 [facility] Serum or plasma anion gap de terminationOrdered By: Krzysztof Salazar on 09-20-2023 Anion gap [Moles/Vol] 11.0 mmol/L 6.0-15.0 [facility] Serum or plasma beta globuli n measurement by electrophoresis (mass/volume)Ordered By: Krzysztof Salazar on 09-20-2023 Beta globulin Elph [Mass/Vol] 1.2 g/dL 0.7-1.3 [facility] Serum or plasma gamma globul in measurement by electrophoresis (mass/volume)Ordered By: Krzysztof Salazar on 09-20-2023 Gamma globulin Elph [Mass/Vol] 1.8 g/dL 0.4-1.8 [facility] Sodium [Moles/volume] in Ser um or PlasmaOrdered By: Krzysztof Salazar on 09-20-2023 Sodium [Moles/Vol] 136 mmol/L 136-145 [facility] Transferrin [Mass/volume] in Serum or PlasmaOrdered By: Krzysztof Salazar on 09-20-2023 Transferrin [Mass/Vol] 246 mg/dL 203-362 [facility] Urea nitrogen [Mass/volume] in Serum or PlasmaOrdered By: Krzysztof Salazar on 09-20-2023 Urea nitrogen [Mass/Vol] 16 mg/dL 7 [facility] WBC Auto (Bld) [#/Vol]Ordere d By: Krzysztof Salazar on 09-20-2023 WBC (Bld) [#/Vol] 8.5 10*3/uL 3.8-11.6 [facility] Alanine aminotransferase [En zymatic activity/volume] in Serum or PlasmaOrdered By: Elizabeth Alvarado on 08-24-2023 ALT [Catalytic activity/Vol] 28 U/L [facility] Albumin [Mass/volume] in Ser um or Plasma by Bromocresol green (BCG) dye binding methoOrdered By: Elizabeth Alvarado on 08-24-2023 Albumin BCG dye [Mass/Vol] 4.3 g/dL 3.5-5.7 [facility] Alkaline phosphatase [Enzyma tic activity/volume] in Serum or PlasmaOrdered By: Elizabeth Alvarado on 08-24-2023 ALP [Catalytic activity/Vol] 86 U/L 34-104 [facility] Aspartate aminotransferase [ Enzymatic activity/volume] in Serum or PlasmaOrdered By: Elizabeth Alvarado on 08-24-2023 AST [Catalytic activity/Vol] 28 U/L 13-39 [facility] Basophils Auto (Bld) [#/Vol] Ordered By: Elizabeth Alvarado on 08-24-2023 Basophils (Bld) [#/Vol] 0.1 10*3/uL 0.0-0.2 [facility] Basophils/100 WBC Auto (Bld) Ordered By: Elizabeth Alvarado on 08-24-2023 Basophils/100 WBC (Bld) 0.7 % . [facility] Bilirubin.total [Mass/volume ] in Serum or PlasmaOrdered By: Elizabeth Alvarado on 08-24-2023 Bilirubin [Mass/Vol] 0.4 mg/dL 0.3-1.0 [facility] Calcium [Mass/volume] in Ser um or PlasmaOrdered By: Elizabeth Alvarado on 08-24-2023 Calcium [Mass/Vol] 9.4 mg/dL 8.6-10.3 [facility] Carbon dioxide, total [Moles /volume] in Serum or PlasmaOrdered By: Elizabeth Alvarado on 08-24-2023 CO2 [Moles/Vol] 29.2 mmol/L 21.0-31.0 [facility] Chloride [Moles/volume] in S hugo or PlasmaOrdered By: Elizabeth Alvarado on 08-24-2023 Chloride [Moles/Vol] 96 mmol/L 98-107 [facility] Cholesterol [Mass/volume] in Serum or PlasmaOrdered By: Elizabeth Alvarado on 08-24-2023 Cholesterol [Mass/Vol] 160 mg/dL 140-200 [facility] Comment on above: Chol less than 200 m g/dl low riskChol 201-239 mg/dl borderline riskChol 240 mg/dl and greater high risk Cholesterol in LDL Calc [Mas s/Vol]Ordered By: Elizabeth Alvarado on 08-24-2023 Cholesterol in LDL [Mass/Vol] 78 mg/dL 0-100 [facility] Comment on above: LDL ATP III CLASSIFI CATIONLDL less than 100 mg/dL OptimalLDL 100-129 mg/dL Near or above optimalLDL 130-159 mg/dL Borderline highLDL 160-189 mg/dL HighLDL greater than 189 mg/dL Very high Cholesterol in VLDL Calc [Ma ss/Vol]Ordered By: Elizabeth Alvarado on 08-24-2023 Cholesterol in VLDL [Mass/Vol] 22 mg/dL [facility] Creatinine [Mass/volume] in Serum or PlasmaOrdered By: Elizabeth Alvarado on 08-24-2023 Creatinine [Mass/Vol] 0.65 mg/dL 0.60-1.20 [facility] Creatinine [Mass/volume] in UrineOrdered By: Elizabeth Alvarado on 08-24-2023 Creatinine (U) [Mass/Vol] 76.0 mg/dL [facility] Comment on above: No reference range e stablished Eosinophils Auto (Bld) [#/Vo l]Ordered By: Elizabeth Alvarado on 08-24-2023 Eosinophils (Bld) [#/Vol] 0.3 10*3/uL 0.0-0.45 [facility] Eosinophils/100 WBC Auto (Bl d)Ordered By: Elizabeth Alvarado on 08-24-2023 Eosinophils/100 WBC (Bld) 3.3 % . [facility] Erythrocyte distribution wid th Auto (RBC) [Ratio]Ordered By: Elizabeth Alvarado on 08-24-2023 Erythrocyte distribution width (RBC) [Ratio] 15.8 % 11.9-15.3 [facility] Globulin Calc (S) [Mass/Vol] Ordered By: Elizabeth Alvarado on 08-24-2023 Globulin (S) [Mass/Vol] 3.4 g/dL [facility] Glucose [Mass/volume] in Ser um or PlasmaOrdered By: Elizabeth Alvarado on 08-24-2023 Glucose [Mass/Vol] 92 mg/dL 70-100 [facility] Comment on above: ADA recommended refe rence rangeRandom Glucose Reference Range is dependent on time and content of last meal. Glucose of more than 200 mg/dL in a nonstressed, ambulatory subject supports the diagnosis of Diabetes Mellitus. Hematocrit Auto (Bld) [Volum e fraction]Ordered By: Elizabeth Alvarado on 08-24-2023 Hematocrit (Bld) [Volume fraction] 40.6 % 34.0-46.4 [facility] Hemoglobin [Mass/volume] in BloodOrdered By: Elizabeth Alvarado on 08-24-2023 Hemoglobin (Bld) [Mass/Vol] 13.2 g/dL 11.8-15.4 [facility] Leukocytes [#/volume] correc silverio for nucleated erythrocytes in Blood by Automated counOrdered By: Elizabeth Alvarado on 08-24-2023 WBC corrected for nucl RBC Auto (Bld) [#/Vol] 10.2 10*3/uL 3.8-11.6 [facility] Lymphocytes Auto (Bld) [#/Vo l]Ordered By: Elizabeth Alvarado on 08-24-2023 Lymphocytes (Bld) [#/Vol] 2.6 10*3/uL 1.00-4.8 [facility] Lymphocytes/100 WBC Auto (Bl d)Ordered By: Elizabeth Alvarado on 08-24-2023 Lymphocytes/100 WBC (Bld) 25.5 % . [facility] MCH Auto (RBC) [Entitic mass ]Ordered By: Elizabeth Alvarado on 08-24-2023 MCH (RBC) [Entitic mass] 26.1 pg 24.7-34.3 [facility] MCHC Auto (RBC) [Mass/Vol]Or dered By: Elizabeth Alvarado on 08-24-2023 MCHC (RBC) [Mass/Vol] 32.5 g/dL 32.0-35.0 [facility] MCV Auto (RBC) [Entitic vol] Ordered By: Elizabeth Alvarado on 08-24-2023 MCV (RBC) [Entitic vol] 80.3 fL 80-100 [facility] Microalbumin [Mass/volume] i n UrineOrdered By: Elizabeth Alvarado on 08-24-2023 Albumin DL <= 20 mg/L (U) [Mass/Vol] mg/dL 0.0-1.8 [facility] Monocytes Auto (Bld) [#/Vol] Ordered By: Elizabeth Alvarado on 08-24-2023 Monocytes (Bld) [#/Vol] 0.8 10*3/uL 0.0-0.8 [facility] Monocytes/100 WBC Auto (Bld) Ordered By: Elizabeth Alvarado on 08-24-2023 Monocytes/100 WBC (Bld) 8.1 % . [facility] Neutrophils Auto (Bld) [#/Vo l]Ordered By: Elizabeth Alvarado on 08-24-2023 Neutrophils (Bld) [#/Vol] 6.4 10*3/uL 1.8-7.7 [facility] Neutrophils/100 WBC Auto (Bl d)Ordered By: Elizabeth Alvarado on 08-24-2023 Neutrophils/100 WBC (Bld) 62.4 % . [facility] No Panel InformationOrdered By: Elizabeth Alvarado on 08-24-2023 Estimated GFR (CKD-EPI) > 60.0 mL/Min [facility] Creatinine Clearance (Chem N/A [facility] Nucleated erythrocytes [Pres ence] in Blood by Automated countOrdered By: Elizabeth Alvarado on 08-24-2023 Nucleated RBC Auto Ql (Bld) 0.2 /100{WBC} 0-0.5 [facility] Platelet mean volume Auto (B ld) [Entitic vol]Ordered By: Elizabeth Alvarado on 08-24-2023 Platelet mean volume (Bld) [Entitic vol] 9.8 fL 6.3-10.7 [facility] Platelets Auto (Bld) [#/Vol] Ordered By: Elizabeth Alvarado on 08-24-2023 Platelets (Bld) [#/Vol] 283 10*3/uL 150-450 [facility] Potassium [Moles/volume] in Serum or PlasmaOrdered By: Elizabeth Alvarado on 08-24-2023 Potassium [Moles/Vol] 4.3 mmol/L 3.5-5.1 [facility] Protein [Mass/volume] in Ser um or PlasmaOrdered By: Elizabeth Alvarado on 08-24-2023 Protein [Mass/Vol] 7.7 g/dL 6.4-8.9 [facility] RBC Auto (Bld) [#/Vol]Ordere d By: Elizabeth Alvarado on 08-24-2023 RBC (Bld) [#/Vol] 5.06 10*6/uL 3.60-5.00 [facility] Serum or plasma albumin/glob ulin mass ratioOrdered By: Elizabeth Alvarado on 08-24-2023 Albumin/Globulin [Mass ratio] 1.3 {ratio} [facility] Serum or plasma anion gap de terminationOrdered By: Elizabeth Alvarado on 08-24-2023 Anion gap [Moles/Vol] 18.1 mmol/L 6.0-15.0 [facility] Serum or plasma high density lipoprotein (HDL) cholesterol measurementOrdered By: Elizabeth Alvarado on 08-24-2023 Cholesterol in HDL [Mass/Vol] 60 mg/dL 23-92 [facility] Comment on above: HDL CHOL ATP-III CLA SSIFICATION Cardiovascular RiskHDL > or equal to 60 mg/dL LOWHDL < 40 mg/dL HIGH Serum or plasma total choles terol/high density lipoprotein (HDL) cholesterol mass ratOrdered By: Elizabeth Alvarado on 08-24-2023 Cholesterol.total/Choles terol in HDL [Mass ratio] 2.7 {ratio} <5.0 [facility] Sodium [Moles/volume] in Ser um or PlasmaOrdered By: Elizabeth Alvarado on 08-24-2023 Sodium [Moles/Vol] 139 mmol/L 136-145 [facility] Thyrotropin [Units/volume] i n Serum or PlasmaOrdered By: Elizabeth Alvarado on 08-24-2023 TSH Qn 2.40 m[IU]/L 0.45-5.33 [facility] Triglyceride [Mass/volume] i n Serum or PlasmaOrdered By: Elizabeth Alvarado on 08-24-2023 Triglyceride [Mass/Vol] 112 mg/dL 0-149 [facility] Comment on above: TRIG ATP III CLASSIF ICATIONTRIG less than 150 mg/dL NormalTRIG 150-199 mg/dL Borderline highTRIG 200-500 mg/dL High TRIG greater than 500 mg/dL Very highStandard traceable to the Center for Disease Conrtrol and Prevention (CDC) test method. Urea nitrogen [Mass/volume] in Serum or PlasmaOrdered By: Elizabeth Alvarado on 08-24-2023 Urea nitrogen [Mass/Vol] 17 mg/dL 7-25 [facility] Urine microalbumin/creatinin e mass ratioOrdered By: Elizabeth Alvarado on 08-24-2023 Albumin/Creatinine DL <= 20 mg/L (U) [Mass ratio] [facility] Comment on above: Test not performed WBC Auto (Bld) [#/Vol]Ordere d By: Elizabeth Alvarado on 08-24-2023 WBC (Bld) [#/Vol] 10.2 10*3/uL 3.8-11.6 [facility] Established Visit (Orthopaed ic Surgery)on 12-29-2022 [...] grammatical areas may persist related to the [employer] software Merrill Alejandro PA-C . Active Problems [...] Dec 29 2022 1:38PM EST (Author) Normal [employer] Established Visit (Orthopaed ic Surgery)on 09-22-2022 Established [...] grammatical areas may persist related to the [employer] software Acosta Schafer MD Senior Attending Physician [facility] [place] . Active Problems Problems Acute pain of [...] 1 tablet daily Results/Data Xray Knee 3 [id number] 01:48PMAcosta Schafer Test NameResultFlagReference Xray Knee 3 View(Report) FINAL REPORT Interpreted by: ACOSTA SCHAFER BURTON, MD 09/22/22 14:13 Patient Name: GEETA SHELTON STUDY: KNEE; 3 VIEWS; Right; 09/22/2022 1:48 pm INDICATION: pain Z96.659: Status post total knee replacement. ACCESSION NUMBER(S): [id number] ORDERING CLINICIAN: ACOSTA SCHAFER FINDINGS: Right knee [...] Status post total knee replacement. ACCESSION NUMBER(S): [id number] ORDERING CLINICIAN: ACOSTA SCHAFER FINDINGS: Right knee three views. Status post revision total knee replacement components in good position no signs of fracture dislocation or other bony abnormalities Electronically signed by: ACOSTA SCHAFER MD Normal [facility] 09-22-2022 XR Knee 3 Views Normal [facility] Work Phone: Alanine aminotransferase [En zymatic activity/volume] in Serum or PlasmaOrdered By: Zoey Ramirez on 08-17-2022 ALT [Catalytic activity/Vol] 45 U/L 7-52 [facility] Albumin [Mass/volume] in Ser um or PlasmaOrdered By: Zoey Ramirez on 08-17-2022 Albumin [Mass/Vol] 3.7 g/dL 2.9-4.4 [facility] Albumin [Mass/volume] in Ser um or Plasma by Bromocresol green (BCG) dye binding methoOrdered By: Zoey Ramirez on 08-17-2022 Albumin BCG dye [Mass/Vol] 4.1 g/dL 3.5-5.7 [facility] Albumin/Protein.total in 24 hour Urine by ElectrophoresisOrdered By: Zoey Ramirez on 08-17-2022 Albumin Elph (24H U) [Mass fraction] 59.9 % . [facility] Alkaline phosphatase [Enzyma tic activity/volume] in Serum or PlasmaOrdered By: Zoey Ramirez on 08-17-2022 ALP [Catalytic activity/Vol] 90 U/L 34-104 [facility] Aspartate aminotransferase [ Enzymatic activity/volume] in Serum or PlasmaOrdered By: Zoey Ramirez on 08-17-2022 AST [Catalytic activity/Vol] 40 U/L 13-39 [facility] Basophils Auto (Bld) [#/Vol] Ordered By: Zoey Ramirez on 08-17-2022 Basophils (Bld) [#/Vol] 0.1 10*3/uL 0.0-0.2 [facility] Basophils/100 WBC Auto (Bld) Ordered By: Zoey Ramirez on 08-17-2022 Basophils/100 WBC (Bld) 0.9 % . [facility] Bilirubin.total [Mass/volume ] in Serum or PlasmaOrdered By: Zoey Ramirez on 08-17-2022 Bilirubin [Mass/Vol] 0.4 mg/dL 0.3-1.0 [facility] Calcium [Mass/volume] in Ser um or PlasmaOrdered By: Zoey Ramirez on 08-17-2022 Calcium [Mass/Vol] 9.1 mg/dL 8.6-10.3 [facility] Carbon dioxide, total [Moles /volume] in Serum or PlasmaOrdered By: Zoey Ramirez on 08-17-2022 CO2 [Moles/Vol] 27.9 mmol/L 21.0-31.0 [facility] Chloride [Moles/volume] in S hugo or PlasmaOrdered By: Zoey Ramirez on 08-17-2022 Chloride [Moles/Vol] 100 mmol/L 98-107 [facility] Creatinine [Mass/volume] in Serum or PlasmaOrdered By: Zoey Ramirez on 08-17-2022 Creatinine [Mass/Vol] 0.71 mg/dL 0.60-1.20 [facility] Eosinophils Auto (Bld) [#/Vo l]Ordered By: Zoey Ramirez on 08-17-2022 Eosinophils (Bld) [#/Vol] 0.3 10*3/uL 0.0-0.45 [facility] Eosinophils/100 WBC Auto (Bl d)Ordered By: Zoey Ramirez on 08-17-2022 Eosinophils/100 WBC (Bld) 3.1 % . [facility] Erythrocyte distribution wid th Auto (RBC) [Ratio]Ordered By: Zoey Ramirez on 08-17-2022 Erythrocyte distribution width (RBC) [Ratio] 16.5 % 11.9-15.3 [facility] Ferritin [Mass/volume] in Se rum or PlasmaOrdered By: Zoey Ramirez on 08-17-2022 Ferritin [Mass/Vol] 85.3 ng/mL 11.0-306.8 [facility] Folate [Mass/volume] in Seru m or PlasmaOrdered By: Zoey Ramirez on 08-17-2022 Folate [Mass/Vol] 15.1 ng/mL >5.9 [facility] Comment on above: Folate reference ran ge: >5.9 ng/mlThe WHO technical consultation on folate and vitamin [id number] has determined that folate concentrations lessthan 4 ng/ml are considered deficient. Gamma globulin/Protein.total in 24 hour Urine by ElectrophoresisOrdered By: Zoey Ramirez on 08-17-2022 Gamma globulin Elph (24H U) [Mass fraction] 15.3 % . [facility] Globulin Calc (S) [Mass/Vol] Ordered By: Zoey Ramirez on 08-17-2022 Globulin (S) [Mass/Vol] 4.0 g/dL [facility] Glucose [Mass/volume] in Ser um or PlasmaOrdered By: Zoey Ramirez on 08-17-2022 Glucose [Mass/Vol] 142 mg/dL 70-100 [facility] Comment on above: ADA recommended refe rence rangeRandom Glucose Reference Range is dependent on time and content of last meal. Glucose of more than 200 mg/dL in a nonstressed, ambulatory subject supports the diagnosis of Diabetes Mellitus. Hematocrit Auto (Bld) [Volum e fraction]Ordered By: Zoey Ramirez on 08-17-2022 Hematocrit (Bld) [Volume fraction] 41.3 % 34.0-46.4 [facility] Hemoglobin [Mass/volume] in BloodOrdered By: Zoey Ramirez on 08-17-2022 Hemoglobin (Bld) [Mass/Vol] 13.2 g/dL 11.8-15.4 [facility] IgA [Mass/volume] in Serum o r PlasmaOrdered By: Zoey Ramirez on 08-17-2022 IgA [Mass/Vol] 498 mg/dL 87-352 [facility] IgG [Mass/volume] in Serum o r PlasmaOrdered By: Zoey Ramirez on 08-17-2022 IgG [Mass/Vol] 1834 mg/dL 586-1602 [facility] IgM [Mass/volume] in Serum o r PlasmaOrdered By: Zoey Ramirez on 08-17-2022 IgM [Mass/Vol] 124 mg/dL 26-217 [facility] Comment on above: Performed at: [facility] [address] [id number] Director: Jeyson Duncan PhD, Phone: [phone] Immunofixation for UrineOrde red By: Zoey Ramirez on 08-17-2022 Interpretation Immunofixation (U) [Interp] See comment . [facility] Comment on above: No monoclonality det ected.Performed at: [facility] [address] [id number] Director: Jeyson Duncna PhD, Phone: [employer] Immunoglobulin light chains. kappa.free [Mass/volume] in SerumOrdered By: Zoey Ramirez on 08-17-2022 Immunoglobulin light chains.kappa.free (S) [Mass/Vol] 47.1 mg/L 3.3-19.4 [facility] Immunoglobulin light chains. kappa.free/Immunoglobulin light chains.lambda.free [MassOrdered By: Zoey Ramirez on 08-17-2022 Immunoglobulin light chains.kappa.free/Immuno globulin light chains.lambda.free (S) [Mass ratio] 1.65 0.26-1.65 [facility] Comment on above: Performed at: - [address] [id number] Director: Jeyson Duncan PhD, Phone: [phone] Immunoglobulin light chains. lambda.free [Mass/volume] in Serum or PlasmaOrdered By: Zoey Ramirez on 08-17-2022 Immunoglobulin light chains.lambda.free [Mass/Vol] 28.6 mg/L 5.7-26.3 [facility] Iron [Mass/volume] in Serum or PlasmaOrdered By: Zoey Ramirez on 08-17-2022 Iron [Mass/Vol] 41 ug/dL 50-212 [facility] Iron binding capacity [Mass/ volume] in Serum or PlasmaOrdered By: Zoey Ramirez on 08-17-2022 Iron binding capacity [Mass/Vol] 344 ug/dL 255-450 [facility] Iron saturation [Mass Fracti on] in Serum or PlasmaOrdered By: Zoey Ramirez on 08-17-2022 Iron saturation [Mass fraction] 11.9 % 20-50 [facility] Leukocytes [#/volume] correc silverio for nucleated erythrocytes in Blood by Automated counOrdered By: Zoey Ramirez on 08-17-2022 WBC corrected for nucl RBC Auto (Bld) [#/Vol] 9.9 10*3/uL 3.8-11.6 [facility] Lymphocytes Auto (Bld) [#/Vo l]Ordered By: Zoey Ramirez on 08-17-2022 Lymphocytes (Bld) [#/Vol] 2.8 10*3/uL 1.00-4.8 [facility] Lymphocytes/100 WBC Auto (Bl d)Ordered By: Zoey Ramirez on 08-17-2022 Lymphocytes/100 WBC (Bld) 28.5 % . [facility] MCH Auto (RBC) [Entitic mass ]Ordered By: Zoey Ramirez on 08-17-2022 MCH (RBC) [Entitic mass] 24.9 pg 24.7-34.3 [facility] MCHC Auto (RBC) [Mass/Vol]Or dered By: Zoey Ramirez on 08-17-2022 MCHC (RBC) [Mass/Vol] 32.0 g/dL 32.0-35.0 [facility] MCV Auto (RBC) [Entitic vol] Ordered By: Zoey Ramirez on 08-17-2022 MCV (RBC) [Entitic vol] 77.8 fL 80-100 [facility] Monocytes Auto (Bld) [#/Vol] Ordered By: Zoey Ramirez on 08-17-2022 Monocytes (Bld) [#/Vol] 0.6 10*3/uL 0.0-0.8 [facility] Monocytes/100 WBC Auto (Bld) Ordered By: Zoey Ramirez on 08-17-2022 Monocytes/100 WBC (Bld) 5.9 % . [facility] Neutrophils Auto (Bld) [#/Vo l]Ordered By: Zoey Ramirez on 08-17-2022 Neutrophils (Bld) [#/Vol] 6.1 10*3/uL 1.8-7.7 [facility] Neutrophils/100 WBC Auto (Bl d)Ordered By: Zoey Ramirez on 08-17-2022 Neutrophils/100 WBC (Bld) 61.6 % . [facility] No Panel InformationOrdered By: Zoey Ramirez on 08-17-2022 Estimated GFR (CKD-EPI) > 60.0 mL/Min [facility] Creatinine Clearance (Chem 122.85 [facility] Protein Electrophoresis M-Antwan Not observed g/dL Not Observed [facility] Protein Electrophoresis Note See comment . [facility] Comment on above: Protein electrophore sis scan will follow via computer,mail, or escrow manager delivery.Performed at: [address] [id number] Director: Jeyson Duncan PhD, Phone: [phone] Serum Immunofixation Comment: . [facility] Comment on above: Presence of monoclon al protein is unclear at this time. Suggestrepeat in 3 to 6 months if clinically indicated. Urine Random Prot Electrophor Note See comment . [facility] Comment on above: Protein electrophore sis scan will follow via computer,mail, or escrow manager delivery.Performed at: [address] [id number] Director: Jeyson Duncan PhD, Phone: [phone] Nucleated erythrocytes [Pres ence] in Blood by Automated countOrdered By: Zoey Ramirez on 08-17-2022 Nucleated RBC Auto Ql (Bld) 0.1 /100{WBC} 0-0.5 [facility] Platelet mean volume Auto (B ld) [Entitic vol]Ordered By: Zoey Ramirez on 08-17-2022 Platelet mean volume (Bld) [Entitic vol] 8.5 fL 6.3-10.7 [facility] Platelets Auto (Bld) [#/Vol] Ordered By: Zoey Ramirez on 08-17-2022 Platelets (Bld) [#/Vol] 345 10*3/uL 150-450 [facility] Potassium [Moles/volume] in Serum or PlasmaOrdered By: Zoey Ramirez on 08-17-2022 Potassium [Moles/Vol] 4.7 mmol/L 3.5-5.1 [facility] Protein [Mass/volume] in Ser um or PlasmaOrdered By: Zoey Ramirez on 08-17-2022 Protein [Mass/Vol] 8.1 g/dL 6.4-8.9 [facility] Protein [Mass/Vol] 8.0 g/dL 6.0-8.5 [facility] Protein [Mass/volume] in Uri neOrdered By: Zoey Ramirez on 08-17-2022 Protein (U) [Mass/Vol] 75.0 mg/dL Not Estab. [facility] Protein.monoclonal/Protein.t otal in 24 hour Urine by ElectrophoresisOrdered By: Zoey Ramirez on 08-17-2022 Protein.monoclonal Elph (24H U) [Mass fraction] Not observed % Not Observed [facility] RBC Auto (Bld) [#/Vol]Ordere d By: Zoey Ramirez on 08-17-2022 RBC (Bld) [#/Vol] 5.31 10*6/uL 3.60-5.00 [facility] Serum globulin measurement ( mass/volume)Ordered By: Zoey Ramirez on 08-17-2022 Globulin (S) [Mass/Vol] 4.3 g/dL 2.2-3.9 [facility] Serum or plasma albumin/glob ulin mass ratioOrdered By: Zoey Ramirez on 08-17-2022 Albumin/Globulin [Mass ratio] 1.0 {ratio} [facility] Albumin/Globulin [Mass ratio] 0.9 {ratio} 0.7-1.7 [facility] Serum or plasma alpha 1 glob ulin measurement by electrophoresis (mass/volume)Ordered By: Zoey Ramirez on 08-17-2022 Alpha 1 globulin Elph [Mass/Vol] 0.3 g/dL 0.0-0.4 [facility] Serum or plasma alpha 2 glob ulin measurement by electrophoresis (mass/volume)Ordered By: Zoey Ramirez on 08-17-2022 Alpha 2 globulin Elph [Mass/Vol] 0.8 g/dL 0.4-1.0 [facility] Serum or plasma anion gap de terminationOrdered By: Zoey Ramirez on 08-17-2022 Anion gap [Moles/Vol] 12.8 mmol/L 6.0-15.0 [facility] Serum or plasma beta globuli n measurement by electrophoresis (mass/volume)Ordered By: Zoey Ramirez on 08-17-2022 Beta globulin Elph [Mass/Vol] 1.3 g/dL 0.7-1.3 [facility] Serum or plasma gamma globul in measurement by electrophoresis (mass/volume)Ordered By: Zoey Ramirez on 08-17-2022 Gamma globulin Elph [Mass/Vol] 1.9 g/dL 0.4-1.8 [facility] Sodium [Moles/volume] in Ser um or PlasmaOrdered By: Zoey Ramirez on 08-17-2022 Sodium [Moles/Vol] 136 mmol/L 136-145 [facility] Transferrin [Mass/volume] in Serum or PlasmaOrdered By: Zoey Ramirez on 08-17-2022 Transferrin [Mass/Vol] 246 mg/dL 203-362 [facility] Urea nitrogen [Mass/volume] in Serum or PlasmaOrdered By: Zoey Ramirez on 08-17-2022 Urea nitrogen [Mass/Vol] 23 mg/dL 7-25 [facility] Urine alpha 1 globulin/total protein by electrophoresisOrdered By: Zoey Ramirez on 08-17-2022 Alpha 1 globulin Elph (U) [Mass fraction] 4.5 % . [facility] Urine alpha 2 globulin/total protein ratio by electrophoresisOrdered By: Zoey Ramirez on 08-17-2022 Alpha 2 globulin Elph (U) [Mass fraction] 7.7 % . [facility] Urine beta globulin measurem ent by electrophoresis (mass/volume)Ordered By: Zoey Ramirez on 08-17-2022 Beta globulin Elph (U) [Mass/Vol] 12.6 % . [facility] Vitamin B12 ser/plasOrdered By: Zoey Ramirez on 08-17-2022 Cobalamin (Vitamin B12) [Mass/Vol] 387 pg/mL 180-914 [facility] WBC Auto (Bld) [#/Vol]Ordere d By: Zoey Ramirez on 08-17-2022 WBC (Bld) [#/Vol] 9.9 10*3/uL 3.8-11.6 [facility] Established Visit (Orthopaed ic Surgery)on 08-11-2022 Established [...] to do her outpatient physical therapy at [facility]. She has a few visits left. She [...] grammatical areas may persist related to the [employer] software Merrlil Alejandro PA-C . Active Problems Problems Acute [...] Aug 11 2022 10:34AM EST (Author) Normal [employer] Albumin [Mass/volume] in Ser um or PlasmaOrdered By: Lorrie Baig on 07-23-2022 Albumin [Mass/Vol] 3.3 g/dL 2.9-4.4 [facility] Creatine kinase [Enzymatic a ctivity/volume] in Serum or PlasmaOrdered By: Lorrie Baig on 07-23-2022 CK [Catalytic activity/Vol] 51 U/L 30-223 [facility] Erythrocyte sedimentation ra te by Photometric methodOrdered By: Lorrie Baig on 07-23-2022 ESR Photometric method (Bld) [Velocity] 65 mm/hr 0-29 [facility] Folate [Mass/volume] in Seru m or PlasmaOrdered By: Lorrie Baig on 07-23-2022 Folate [Mass/Vol] 12.8 ng/mL >5.9 [facility] Comment on above: Folate reference ran ge: >5.9 ng/mlThe WHO technical consultation on folate and vitamin [id number] has determined that folate concentrations lessthan 4 ng/ml are considered deficient. Magnesium [Mass/volume] in S hugo or PlasmaOrdered By: Lorrie Baig on 07-23-2022 Magnesium [Mass/Vol] 1.8 mg/dL 1.9-2.7 [facility] No Panel InformationOrdered By: Lorrie Baig on 07-23-2022 Protein Electrophoresis Interpret See comment . [facility] Comment on above: Faint band in gamma region suspicious for monoclonalimmunoglobulin. This band may represent a benign spike asseen in older people or could be a paraprotein as seen inMultiple Myeloma, Waldenstrom's Macroglobulinemia orLymphoma. Depending on clinical circumstances, furtherdiagnostic studies may include serum immunofixation orserum free light chain quantitation.Performed at: [address] [id number] Director: Jeyson Duncan PhD, Phone: [phone] Protein Electrophoresis M-Antwan Comment: g/dL Not Observed [facility] Comment on above: ASYMMETRICAL GAMMA Protein Electrophoresis Note See comment . [facility] Comment on above: Protein electrophore sis scan will follow via computer,mail, or escrow manager delivery. Phosphate [Mass/volume] in S hugo or PlasmaOrdered By: Lorrie Baig on 07-23-2022 Phosphate [Mass/Vol] 4.5 mg/dL 3.7-7.2 [facility] Protein [Mass/volume] in Ser um or PlasmaOrdered By: Lorrie Baig on 07-23-2022 Protein [Mass/Vol] 7.2 g/dL 6.0-8.5 [facility] Serum globulin measurement ( mass/volume)Ordered By: Lorrie Baig on 07-23-2022 Globulin (S) [Mass/Vol] 3.9 g/dL 2.2-3.9 [facility] Serum or plasma albumin/glob ulin mass ratioOrdered By: Lorrie Baig on 07-23-2022 Albumin/Globulin [Mass ratio] 0.8 {ratio} 0.7-1.7 [facility] Serum or plasma alpha 1 glob ulin measurement by electrophoresis (mass/volume)Ordered By: Lorrie Baig on 07-23-2022 Alpha 1 globulin Elph [Mass/Vol] 0.3 g/dL 0.0-0.4 [facility] Serum or plasma alpha 2 glob ulin measurement by electrophoresis (mass/volume)Ordered By: Lorrie Baig on 07-23-2022 Alpha 2 globulin Elph [Mass/Vol] 0.7 g/dL 0.4-1.0 [facility] Serum or plasma beta globuli n measurement by electrophoresis (mass/volume)Ordered By: Lorrie Baig on 07-23-2022 Beta globulin Elph [Mass/Vol] 1.2 g/dL 0.7-1.3 [facility] Serum or plasma gamma globul in measurement by electrophoresis (mass/volume)Ordered By: Lorrie Baig on 07-23-2022 Gamma globulin Elph [Mass/Vol] 1.7 g/dL 0.4-1.8 [facility] Thyrotropin [Units/volume] i n Serum or PlasmaOrdered By: Lorrie Baig on 07-23-2022 TSH Qn 4.76 m[IU]/L 0.45-5.33 [facility] Vitamin B12 ser/plasOrdered By: Lorrie Baig on 07-23-2022 Cobalamin (Vitamin B12) [Mass/Vol] 358 pg/mL 180-914 [facility] KNEE 3 VIEWSon 07-14-2022 KNEE 3 VIEWS Patient Name: GEETA SHELTON STUDY: KNEE; 3 VIEWS; Right; 07/14/2022 8:47 am INDICATION: pain Z96.659: Status post total knee replacement. ACCESSION NUMBER(S): [id number] ORDERING CLINICIAN: ACOSTA SCHAFER FINDINGS: Right knee three views. Status post revision type total knee replacement components in good position no signs of fracture dislocation or other bony abnormality dee in the soft tissues anteriorly. Electronically signed by: ACOSTA SCHAFER MD [facility] Post Op (Orthopaedic Surgery )on 07-14-2022 [...] she will most likely do this at [facility] in [place]. Physical exam General: No acute distress and [...] grammatical areas may persist related to the [employer] software Merrill Alejandro PA-C . Active Problems Problems Acute pain of both knees (338.19,719.46) (M25.561,M25.562) Status post total knee replacement (V43.65) (Z96.659) Allergies Medication Penicillins Recorded By: Tarsha Murray; 05/18/2022 8:47:33 AM Current Meds Medication NameInstruction Xarelto 10 MG Oral TabletTake 1 tablet daily Results/Data Xray Knee 3 [id number] 08:47AMSAcosta steward Test NameResultFlagReference Xray Knee 3 View(Report) FINAL REPORT Interpreted by: ACOSTA SCHAFER BURTON, MD 07/14/22 08:49 Patient Name: GEETA SHELTNO STUDY: KNEE; 3 VIEWS; Right; 07/14/2022 8:47 am INDICATION: pain Z96.659: Status post total knee replacement. ACCESSION NUMBER(S): [id number] ORDERING CLINICIAN: ACOSTA SCHAFER FINDINGS: Right knee [...] Radiologyon 07-14-2022 XR Knee 3 Views Normal -[facility] Work Phone: Basic Metabolic Panel Reflex Mgon 07-03-2022 Anion gap [Moles/Vol] 10 mmol/L Normal 9-15 [facility] Comment on above: Performed By: #### B MPX #### [facility] [address] [place] [address] Calcium [Mass/Vol] 9.2 mg/dL Normal 8.5-9.9 [facility] Comment on above: Performed By: #### B MPX #### [facility] [address] [place] [address] Chloride [Moles/Vol] 100 mmol/L Normal 95-107 [facility] Comment on above: Performed By: #### B MPX #### [facility] [address] [place] [address] CO2 [Moles/Vol] 27 mmol/L Normal 20-31 [facility] Comment on above: Performed By: #### B MPX #### [facility] [address] [place] [address] Creatinine [Mass/Vol] 0.51 mg/dL Normal 0.50-0.90 [facility] Comment on above: Performed By: #### B MPX #### [facility] [address] [place] [address] GFR >60.0 Normal >60 [facility] Comment on above: Result Comment: Pedi [...] secretion. Performed By: #### B MPX #### [facility] [address] [place] [address] Glucose [Mass/Vol] 132 mg/dL Critically high 70-99 [facility] Comment on above: Performed By: #### B MPX #### [facility] [address] [place] [address] Magnesium [Moles/Vol] 4.6 mmol/L Normal 3.4-4.9 [facility] Comment on above: Performed By: #### B MPX #### [facility] [address] [place] [address] Sodium [Moles/Vol] 137 mmol/L Normal 135-144 [facility] Comment on above: Performed By: #### B MPX #### [facility] [address] [place] [address] Urea nitrogen [Mass/Vol] 12 mg/dL Normal 6-20 [facility] Comment on above: Performed By: #### B MPX #### [facility] [address] [place] [address] Basic Metabolic Panel w/ Ref hillary to MGon 07-03-2022 Anion gap [Moles/Vol] 10 mmol/L [facility] [employer] Calcium [Mass/Vol] 9.2 mg/dL 8.5 - 9.9 mg/dL [facility] [employer] Chloride [Moles/Vol] 100 mmol/L [facility] [employer] CO2 [Moles/Vol] 27 mmol/L [facility] [employer] Creatinine [Mass/Vol] 0.51 mg/dL 0.50 - 0.90 mg/dL [facility] GFR/1.73 sq M.predicted MDRD (S/P/Bld) [Vol rate/Area] 60 - [facility] Comment on above: Pediatric calculator link https://www.kidney.org/professionals/kdoqi/gfr_calculatorped [...] 132 mg/dL High 70 - 99 mg/dL [facility] Interpretation and review of laboratory results Abnormal [facility] Potassium reflex Magnesium 4.6 [facility] Sodium [Moles/Vol] 137 mmol/L [facility] Urea nitrogen (BldV) [Mass/Vol] 12 mg/dL 6 - 20 mg/dL [facility] CBCon 07-03-2022 Hematocrit (Bld) [Volume fraction] 39.9 % 37.0 - 47.0 % [facility] Hemoglobin (Bld) [Mass/Vol] 12.9 g/dL 12.0 - 16.0 g/dL [facility] Interpretation and review of laboratory results Abnormal [facility] MCH (RBC) [Entitic mass] 25.7 pg Low 27. 0 - 31.3 pg [facility] MCHC (RBC) [Mass/Vol] 32.3 % Low 33.0 - 37.0 % [facility] MCV (RBC) [Entitic vol] 79.6 fL 79.4 - 94.8 fL [facility] Platelet distribution width (Bld) [Ratio] 16.5 % High 11.5 - 14.5 % [facility] Platelets (Bld) [#/Vol] 230 10*3/uL 130 - 400 K/uL [facility] RBC (Bld) [#/Vol] 5.02 10*6/uL [facility] WBC (Bld) [#/Vol] 9.2 10*3/uL 4.8 - 10.8 K/uL [facility] CBC With Platelet No Differe ntialon 07-03-2022 Erythrocyte distribution width (RBC) [Ratio] 16.5 % Critically high 11.5-14.5 [facility] Comment on above: Performed By: #### C BCND #### [facility] [address] [place] [address] Hematocrit (Bld) [Volume fraction] 39.9 % Normal 37.0-47.0 [facility] Comment on above: Performed By: #### C BCND #### [facility] [address] [address] Hemoglobin (Bld) [Mass/Vol] 12.9 g/dL Normal 12.0-16.0 [facility] Comment on above: Performed By: #### C BCND #### [facility] [address] [place] [address] MCH (RBC) [Entitic mass] 25.7 pg Low 27.0-31.3 [facility] Comment on above: Performed By: #### C BCND #### [facility] [address] [address] MCHC 32.3 % Low 33.0-37.0 [facility] Comment on above: Performed By: #### C BCND #### [facility] [address] [address] MCV (RBC) [Entitic vol] 79.6 fL Normal 79.4-94.8 [facility] Comment on above: Performed By: #### C BCND #### [facility] [address] [place] [address] Platelets (Bld) [#/Vol] 230 10*3/uL Normal 130-400 [facility] Comment on above: Performed By: #### C BCND #### [facility] [address] [address] RBC (Bld) [#/Vol] 5.02 10*6/uL Normal 4.20-5.40 [facility] Comment on above: Performed By: #### C BCND #### [facility] [address] [place] [address] WBC (Bld) [#/Vol] 9.2 10*3/uL Normal 4.8-10.8 [facility] Comment on above: Performed By: #### C BCND #### [facility] [address] [place] [address] Basic Metabolic Panel Reflex Mgon 07-02-2022 Anion gap [Moles/Vol] 8 mmol/L Low 9-15 [facility] Comment on above: Order Comment: Daja ction has been rescheduled by HERAM at 07/02/2022 05:49 Reason: Come back last per rn fouzia Performed By: #### B MPX #### [facility] [address] [place] [address] Calcium [Mass/Vol] 8.9 mg/dL Normal 8.5-9.9 [facility] Comment on above: Order Comment: Daja ction has been rescheduled by HERAM at 07/02/2022 05:49 Reason: Come back last per rn fouzia Performed By: #### B MPX #### [facility] [address] [place] [address] Chloride [Moles/Vol] 100 mmol/L Normal 95-107 [facility] Comment on above: Order Comment: Daja ction has been rescheduled by HERAM at 07/02/2022 05:49 Reason: Come back last per rn fouzia Performed By: #### B MPX #### [facility] [address] [place] [address] CO2 [Moles/Vol] 27 mmol/L Normal 20-31 [facility] Comment on above: Order Comment: Daja ction has been rescheduled by HERAM at 07/02/2022 05:49 Reason: Come back last per rn fouzia Performed By: #### B MPX #### [facility] [address] [place] [address] Creatinine [Mass/Vol] 0.61 mg/dL Normal 0.50-0.90 [facility] Comment on above: Order Comment: Daja ction has been rescheduled by HERAM at 07/02/2022 05:49 Reason: Come back last per rn fouzia Performed By: #### B MPX #### [facility] [address] [place] [address] GFR >60.0 Normal >60 [facility] Comment on above: Order Comment: [...] secretion. Performed By: #### B MPX #### [facility] [address] [place] [address] Glucose [Mass/Vol] 144 mg/dL Critically high 70-99 [facility] Comment on above: Order Comment: Daja zamarripa has been rescheduled by HERAM at 07/02/2022 05:49 Reason: Come back last per kip reinoso Performed By: #### B MPX #### [facility] [address] [place] [address] Magnesium [Moles/Vol] 4.8 mmol/L Normal 3.4-4.9 [facility] Comment on above: Order Comment: Daja zamarripa has been rescheduled by HERAM at 07/02/2022 05:49 Reason: Come back last per ikp reinoso Performed By: #### B MPX #### [facility] [address] [place] [address] Sodium [Moles/Vol] 135 mmol/L Normal 135-144 [facility] Comment on above: Order Comment: Daja ction has been rescheduled by HERAM at 07/02/2022 05:49 Reason: Come back last per kip reinoso Performed By: #### B MPX #### [facility] [address] [place] [address] Urea nitrogen [Mass/Vol] 21 mg/dL Critically high 6-20 [facility] Comment on above: Order Comment: Daja ction has been rescheduled by HERAM at 07/02/2022 05:49 Reason: Come back last per kip reinoso Performed By: #### B MPX #### [facility] [address] [place] [address] Basic Metabolic Panel w/ Ref hillary to MGon 07-02-2022 Anion gap [Moles/Vol] 8 mmol/L Low [facility] Calcium [Mass/Vol] 8.9 mg/dL 8.5 - 9.9 mg/dL [facility] Chloride [Moles/Vol] 100 mmol/L [facility] CO2 [Moles/Vol] 27 mmol/L [facility] Creatinine [Mass/Vol] 0.61 mg/dL 0.50 - 0.90 mg/dL [facility] GFR/1.73 sq M.predicted MDRD (S/P/Bld) [Vol rate/Area] 60 - PINF [facility] Comment on above: Pediatric calculator [...] 144 mg/dL High 70 - 99 mg/dL [facility] Interpretation and review of laboratory results Abnormal [facility] Potassium reflex Magnesium 4.8 [facility] Sodium [Moles/Vol] 135 mmol/L [facility] Urea nitrogen (BldV) [Mass/Vol] 21 mg/dL High 6 - 20 mg/dL [facility] Collection has been rescheduled by VALDO at 07/02/2022 05:49 Reason: Come back last per kip reinoso [facility] CBCon 07-02-2022 Hematocrit (Bld) [Volume fraction] 40.3 % 37.0 - 47.0 % [facility] Hemoglobin (Bld) [Mass/Vol] 12.9 g/dL 12.0 - 16.0 g/dL [facility] Interpretation and review of laboratory results Abnormal [facility] MCH (RBC) [Entitic mass] 25.5 pg Low 27. 0 - 31.3 pg [facility] MCHC (RBC) [Mass/Vol] 32.1 % Low 33.0 - 37.0 % [facility] MCV (RBC) [Entitic vol] 79.6 fL 79.4 - 94.8 fL [facility] Platelet distribution width (Bld) [Ratio] 16.3 % High 11.5 - 14.5 % [facility] Platelets (Bld) [#/Vol] 230 10*3/uL 130 - 400 K/uL [facility] RBC (Bld) [#/Vol] 5.06 10*6/uL [facility] WBC (Bld) [#/Vol] 9.1 10*3/uL 4.8 - 10.8 K/uL [facility] Collection has been rescheduled by VALDO at 07/02/2022 05:49 Reason: Come back last per kip galdamezfouzia [facility] CBC With Platelet No Differe ntialon 07-02-2022 Erythrocyte distribution width (RBC) [Ratio] 16.3 % Critically high 11.5-14.5 [facility] Comment on above: Order Comment: Daja zamarripa has been rescheduled by VALDO at 07/02/2022 05:49 Reason: Come back last per kip reinoso Performed By: #### C BCND #### [facility] [address] [facility] [place] [address] Hematocrit (Bld) [Volume fraction] 40.3 % Normal 37.0-47.0 [facility] Comment on above: Order Comment: Daja zamarripa has been rescheduled by VALDO at 07/02/2022 05:49 Reason: Come back last per kip reinoso Performed By: #### C BCND #### [facility] [address] [place] [address] Hemoglobin (Bld) [Mass/Vol] 12.9 g/dL Normal 12.0-16.0 [facility] Comment on above: Order Comment: Daja zamarripa has been rescheduled by HERAM at 07/02/2022 05:49 Reason: Come back last per rn fouzia Performed By: #### C BCND #### [facility] [address] [place] [address] MCH (RBC) [Entitic mass] 25.5 pg Low 27.0-31.3 [facility] Comment on above: Order Comment: Daja zamarripa has been rescheduled by HERAM at 07/02/2022 05:49 Reason: Come back last per rn fouzia Performed By: #### C BCND #### [facility] [address] [address] MCHC 32.1 % Low 33.0-37.0 [facility] Comment on above: Order Comment: Daja zamarripa has been rescheduled by HERAM at 07/02/2022 05:49 Reason: Come back last per rn fouzia Performed By: #### C BCND #### [facility] [address] [place] [address] MCV (RBC) [Entitic vol] 79.6 fL Normal 79.4-94.8 [facility] Comment on above: Order Comment: Daja zamarripa has been rescheduled by HERAM at 07/02/2022 05:49 Reason: Come back last per rn fouzia Performed By: #### C BCND #### [facility] [address] [place] [address] Platelets (Bld) [#/Vol] 230 10*3/uL Normal 130-400 [facility] Comment on above: Order Comment: Daja zamarripa has been rescheduled by HERAM at 07/02/2022 05:49 Reason: Come back last per rn fouzia Performed By: #### C BCND #### [facility] [address] [address] RBC (Bld) [#/Vol] 5.06 10*6/uL Normal 4.20-5.40 [facility] Comment on above: Order Comment: Daja zamarripa has been rescheduled by HERAM at 07/02/2022 05:49 Reason: Come back last per rn fouzia Performed By: #### C BCND #### [facility] [address] [place] [address] WBC (Bld) [#/Vol] 9.1 10*3/uL Normal 4.8-10.8 [facility] Comment on above: Order Comment: Daja zamarripa has been rescheduled by HERAM at 07/02/2022 05:49 Reason: Come back last per rn fouzia Performed By: #### C BCND #### [facility] [address] [place] [address] US DUP UPPER EXTREMITY LEFT VENOUSon 07-02-2022 [...] Jean Sifuentes MD 07/02/22 Final result Normal [facility] No evidence of DVT. [facility] RADIOLOGY EXAMINATION: VENOUS ULTRASOUND OF THE LEFT [...] normal color flow study and spectral analysis. [facility] RADIOLOGY Jean Sifuentes MD - 07/02/2022 [...] spectral analysis. IMPRESSION: No evidence of DVT. [employer] Phone: [employer] Phone: Radiology Study observation (narrative) [employer] Phone: XR KNEE RIGHT (1-2 VIEWS)on 07-01-2022 [...] Interpreted by: Jean Sifuentes MD Signed by: eJan Sifuentes MD 07/01/22 Final result Normal [facility] Normal postsurgical appearance [facility] RADIOLOGY EXAMINATION: TWO XRAY VIEWS OF [...] are intact. Overlying surgical dee are seen [facility] RADIOLOGY Jean Sifuentes MD - 07/01/2022 [...] dee are seen IMPRESSION: Normal postsurgical appearance [employer] Work Phone: Radiology Study observation (narrative) [employer] Work Phone: XR KNEE RIGHT (1-2 VIEWS)Ord ered By: Jean Sifuentes on 07-01-2022 [employer] Work Phone: MRSA DNA Probe, Nasalon MRSA, DNA, Nasal Negative NEG [employer] Comment on above: NEGATIVE: MRSA DNA n ot detected by nucleic acid amplification. Results should be used as an adjunct to nosocomial control efforts to identify patients needing enhanced precautions. The test is not intended to identify patients with staphylococcal infections. Results should not be used to guide or monitor treatment for MRSA infections. [facility] [address] [place] [address] Specimen Description Swab [facility] MRSA, DNA, Nasalon MRSA, DNA, Nasal Negative Normal NEG [facility] Comment on above: Result Comment: NEGA TIVE: MRSA DNA not detected by nucleic acid amplification. Results should be used as an adjunct to nosocomial control efforts to identify patients needing enhanced precautions. The test is not intended to identify patients with staphylococcal infections. Results should not be used to guide or monitor treatment for MRSA infections. [facility] [address] [place], [place] [id number] [phone] Performed By: #### I MRSA #### [facility] [address] [place] [address] EKG 12 LeadOrdered By: Leigh Ann Nash on 06-25-2022 Atrial Rate 73 BPM [employer] Work Phone: P [place] 33 degrees [place] [facility] [employer] Work Phone: P-R Interval 160 ms [employer] Work Phone: Q-T Interval 406 ms [employer] Work Phone: QRS Duration 102 ms [employer] Work Phone: QTc Calculation (Bazett) 447 ms [employer] Work Phone: R [place] 74 degrees [employer] Work Phone: T [place] 65 degrees [employer] Work Phone: Ventricular Rate 73 BPM [facility] [employer] Work Phone: [facility] [employer] Work Phone: EKG 12 Leadon 06-25-2022 Normal sinus rhythm Incomplete right bundle branch block Confirmed by LEIGH ANN NASH ([id number]) on 06/25/2022 6:49:48 PM Leigh Ann Sumner F, DO - 06/25/2022 Normal sinus rhythm Incomplete right bundle branch block Confirmed by LEIGH ANN NASH ([id number]) on 06/25/2022 6:49:48 PM [employer] Work Phone: Established Visit (Orthopaed ic Surgery)on 06-25-2022 Established Visit (Orthopaedic Surgery) Chief Complaint Pre-op RT TK-Revision 07/01/22 @ [facility] History of Present Illness This patient [...] plans on performing outpatient physical therapy at [facility] in [place]. All of the patient's questions and concerns were answered. This note was prepared using voice recognition software. The details of this note are correct and have been reviewed, and corrected to the best of my ability. Some grammatical areas may persist related to the [employer] software Merrill Alejandro PA-C . Active Problems Problems Acute pain of both knees (338.19,719.46) (M25.561,M25.562) Allergies Medication Penicillins Recorded By: Tarsha Murray; 05/18/2022 8:47:33 AM Signatures Electronically signed by : Merrill Alejandro PA-C; Jun 25 2022 2:21PM EST (Author) Normal Tune Clout PT Initial Evaluationon 03-0 PT Initial Evaluation [...] today's treatment with some difficulty. Evaluation Code: 27483 PT Eval: Low Complexity, 32 min(s). Resources provided today: education Signatures Electronically signed by : Natali Tyson, PT DPT; Jun 30 2022 10:08AM EST (Author) Normal [employer] APTTon 06-24-2022 aPTT Coag (Bld) [Time] 30.1 s [facility] Comment on above: Effective 02/27/2020: Heparin Therapeutic Range: 64.0 98.0 seconds. [facility] CBC With Platelet and Differ entialon 06-24-2022 Basophils (Bld) [#/Vol] 0.1 10*3/uL Normal 0.0-0.2 [facility] Comment on above: Performed By: #### C BCWD #### [facility] [address] [place] [address] Basophils/100 WBC (Bld) 0.6 % Normal [facility] Comment on above: Performed By: #### C BCWD #### [facility] [address] [place] [address] Eosinophils (Bld) [#/Vol] 0.1 10*3/uL Normal 0.0-0.7 [facility] Comment on above: Performed By: #### C BCWD #### [facility] [address] [place] [address] Eosinophils/100 WBC (Bld) 1.6 % Normal [facility] Comment on above: Performed By: #### C BCWD #### [facility] [address] [place] [address] Erythrocyte distribution width (RBC) [Ratio] 16.4 % Critically high 11.5-14.5 [facility] Comment on above: Performed By: #### C BCWD #### [facility] [address] [place] [address] Hematocrit (Bld) [Volume fraction] 44.4 % Normal 37.0-47.0 [facility] Comment on above: Performed By: #### C BCWD #### [facility] [address] [place] [address] Hemoglobin (Bld) [Mass/Vol] 14.2 g/dL Normal 12.0-16.0 [facility] Comment on above: Performed By: #### C BCWD #### [facility] [address] [place] [address] Lymphocytes (Bld) [#/Vol] 2.3 10*3/uL Normal 1.0-4.8 [facility] Comment on above: Performed By: #### C BCWD #### [facility] [address] [place] [address] Lymphocytes/100 WBC (Bld) 25.8 % Normal [facility] Comment on above: Performed By: #### C BCWD #### [facility] [address] [place] [address] MCH (RBC) [Entitic mass] 25.1 pg Low 27.0-31.3 [facility] Comment on above: Performed By: #### C BCWD #### [facility] [address] [place] [address] MCHC 32.0 % Low 33.0-37.0 [facility] Comment on above: Performed By: #### C BCWD #### [facility] [address] [place] [address] MCV (RBC) [Entitic vol] 78.5 fL Low 79.4-94.8 [facility] Comment on above: Performed By: #### C BCWD #### [facility] [address] [place] [address] Monocytes (Bld) [#/Vol] 0.8 10*3/uL Normal 0.2-0.8 [facility] Comment on above: Performed By: #### C BCWD #### [facility] [address] [place] [address] Monocytes/100 WBC (Bld) 9.4 % Normal [facility] Comment on above: Performed By: #### C BCWD #### [facility] [address] [place] [address] Neutrophils (Bld) [#/Vol] 5.6 10*3/uL Normal 1.4-6.5 [facility] Comment on above: Performed By: #### C BCWD #### [facility] [address] [place] [address] Neutrophils/100 WBC (Bld) 62.6 % Normal [facility] Comment on above: Performed By: #### C BCWD #### [facility] [address] [place] [address] Platelets (Bld) [#/Vol] 281 10*3/uL Normal 130-400 [facility] Comment on above: Performed By: #### C BCWD #### [facility] [address] [place] [address] RBC (Bld) [#/Vol] 5.66 10*6/uL Critically high 4.20-5.40 [facility] Comment on above: Performed By: #### C BCWD #### [facility] [address] [place] [address] WBC (Bld) [#/Vol] 8.9 10*3/uL Normal 4.8-10.8 [facility] Comment on above: Performed By: #### C BCWD #### [facility] [address] [place] [address] CBC with Auto Differentialon 06-24-2022 Basophils (Bld) [#/Vol] 0.1 10*3/uL 0.0 - 0.2 K/uL [facility] Basophils/100 WBC (Bld) 0.6 % [facility] Eosinophils (Bld) [#/Vol] 0.1 10*3/uL 0.0 - 0.7 K/uL [facility] Eosinophils/100 WBC (Bld) 1.6 % [facility] Hematocrit (Bld) [Volume fraction] 44.4 % 37.0 - 47.0 % [facility] Hemoglobin (Bld) [Mass/Vol] 14.2 g/dL 12.0 - 16.0 g/dL [facility] Interpretation and review of laboratory results Abnormal [facility] Lymphocytes (Bld) [#/Vol] 2.3 10*3/uL 1.0 - 4.8 K/uL [facility] Lymphocytes/100 WBC (Bld) 25.8 % [facility] MCH (RBC) [Entitic mass] 25.1 pg Low 27. 0 - 31.3 pg [facility] MCHC (RBC) [Mass/Vol] 32.0 % Low 33.0 - 37.0 % [facility] MCV (RBC) [Entitic vol] 78.5 fL Low 79.4 - 94.8 fL [facility] Monocytes (Bld) [#/Vol] 0.8 10*3/uL 0.2 - 0.8 K/uL [facility] Monocytes/100 WBC (Bld) 9.4 % [facility] Neutrophils Absolute 5.6 K/uL 1.4 - 6 .5 K/uL [facility] Neutrophils/100 WBC (Bld) 62.6 % [facility] Platelet distribution width (Bld) [Ratio] 16.4 % High 11.5 - 14.5 % [facility] Platelets (Bld) [#/Vol] 281 10*3/uL 130 - 400 K/uL [facility] RBC (Bld) [#/Vol] 5.66 10*6/uL High [facility] WBC (Bld) [#/Vol] 8.9 10*3/uL 4.8 - 10.8 K/uL [facility] Comprehensive Metabolic Pane gretel 03-02-2023 Albumin [Mass/Vol] 4.2 g/dL Normal 3.5-4.6 [facility] Comment on above: Performed By: #### U MARIA ELENA #### [facility] [address] [place] [address] ALP [Catalytic activity/Vol] 89 U/L Normal 40-130 [facility] Comment on above: Performed By: #### U MARIA ELENA #### [facility] [address] [place] [address] ALT [Catalytic activity/Vol] 47 U/L Critically high 0-33 [facility] Comment on above: Performed By: #### U MARIA ELENA #### [facility] [address] [place] [address] Anion gap [Moles/Vol] 13 mmol/L Normal 9-15 [facility] Comment on above: Performed By: #### U MARIA ELENA #### [facility] [address] [place] [address] AST [Catalytic activity/Vol] 44 U/L Critically high 0-35 [facility] Comment on above: Performed By: #### U MARIA ELENA #### [facility] [address] [place] [address] Bilirubin [Mass/Vol] 0.5 mg/dL Normal 0.2-0.7 [facility] Comment on above: Performed By: #### U MARIA ELENA #### [facility] [address] [place] [address] Calcium [Mass/Vol] 9.2 mg/dL Normal 8.5-9.9 [facility] Comment on above: Performed By: #### U MARIA ELENA #### [facility] [address] [place] [address] Chloride [Moles/Vol] 100 mmol/L Normal 95-107 [facility] Comment on above: Performed By: #### U MARIA ELENA #### [facility] [address] [place] [address] CO2 [Moles/Vol] 26 mmol/L Normal 20-31 [facility] Comment on above: Performed By: #### U MARIA ELENA #### [facility] [address] [place] [address] Creatinine [Mass/Vol] 0.54 mg/dL Normal 0.50-0.90 [facility] Comment on above: Performed By: #### U MARIA ELENA #### [facility] [address] [place] [address] GFR >60.0 Normal >60 [facility] Comment on above: Result Comment: Pedi [...] Performed By: #### U MARIA ELENA #### [facility] [address] [place] [address] Globulin (S) [Mass/Vol] 3.9 g/dL Critically high 2.3-3.5 [facility] Comment on above: Performed By: #### U MARIA ELENA #### [facility] [address] [place] [address] Glucose [Mass/Vol] 124 mg/dL Critically high 70-99 [facility] Comment on above: Performed By: #### U MARIA ELENA #### [facility] [address] [place] [address] Potassium [Moles/Vol] 4.4 mmol/L Normal 3.4-4.9 [facility] Comment on above: Performed By: #### U MARIA ELENA #### [facility] [address] [place] [address] Protein [Mass/Vol] 8.1 g/dL Critically high 6.3-8.0 [facility] Comment on above: Performed By: #### U MARIA ELENA #### [facility] [address] [place] [address] Sodium [Moles/Vol] 139 mmol/L Normal 135-144 [facility] Comment on above: Performed By: #### U MARIA ELENA #### [facility] [address] [place] [address] Urea nitrogen [Mass/Vol] 14 mg/dL Normal 6-20 [facility] Comment on above: Performed By: #### U MARIA ELENA #### [facility] [address] [place] [address] Albumin [Mass/Vol] 4.2 g/dL 3.5 - 4.6 g/dL [facility] ALP (Bld) [Catalytic activity/Vol] 89 U/L 40 - 130 U/L [facility] ALT [Catalytic activity/Vol] 47 U/L High 0 - 33 U/L [facility] Anion gap [Moles/Vol] 13 mmol/L [facility] AST [Catalytic activity/Vol] 44 U/L High 0 - 35 U/L [facility] Bilirubin [Mass/Vol] 0.5 mg/dL 0.2 - 0 .7 mg/dL [facility] Calcium [Mass/Vol] 9.2 mg/dL 8.5 - 9.9 mg/dL [facility] Chloride [Moles/Vol] 100 mmol/L [facility] CO2 [Moles/Vol] 26 mmol/L [facility] Creatinine [Mass/Vol] 0.54 mg/dL 0.50 - 0.90 mg/dL [facility] GFR/1.73 sq M.predicted MDRD (S/P/Bld) [Vol rate/Area] 60 - PINF [facility] Comment on above: Pediatric calculator [...] 3.9 g/dL High 2.3 - 3.5 g/dL [facility] Glucose [Mass/Vol] 124 mg/dL High 70 - 99 mg/dL [facility] Interpretation and review of laboratory results Abnormal [facility] Potassium [Moles/Vol] 4.4 mmol/L [facility] Protein [Mass/Vol] 8.1 g/dL High 6.3 - 8.0 g/dL [facility] Sodium [Moles/Vol] 139 mmol/L [facility] Urea nitrogen (BldV) [Mass/Vol] 14 mg/dL 6 - 20 mg/dL [facility] Laboratory - Coagulationon 0 06-24-2022 INR Coag (Bld) [Relative time] 1.1 {INR} Normal [facility] Work Phone: Laboratory - Hematology and Cell countson 06-24-2022 Basophils/100 WBC (Bld) 0.6 % Normal [facility] Work Phone: Eosinophils/100 WBC (Bld) 1.6 % Normal [facility] Work Phone: Lymphocytes/100 WBC (Bld) 25.8 % Normal [facility] Work Phone: Monocytes/100 WBC (Bld) 9.4 % Normal [facility] Work Phone: Neutrophils/100 WBC (Bld) 62.6 % Normal [facility] Work Phone: [phone] MRSA, DNA, Nasalon 3 Specimen Description Swab Normal [facility] Comment on above: Performed By: #### I MRSA #### [facility] [address] [place] [address] Microscopic Urinalysison Bacteria, UA FEW Abnormal Negative /HPF [facility] Epithelial Cells, UA 0-2 [facility] Hyaline Casts, UA 0-1 [facility] RBC, UA 0-2 [facility] WBC, UA 3-5 [facility] No Panel Informationon 06-24 Interpretation and review of laboratory results Abnormal [facility] TRACE Abnormal Negative [facility] Work [...] [facility] Work Phone: Yellow Normal Straw/[place] [facility] Work Phone: 0-2 Normal 0-5 [facility] Work Phone: 3-5 Normal 0-5 [facility] Work Phone: 0-1 Normal 0-5 [facility] Work Phone: FEW Abnormal Negative [facility] Work Phone: [phone] K/uL Normal 130-400 [facility] Work Phone: 16.4 % above high threshold 11.5-14.5 [facility] Work Phone: [phone] 32.0 % below low threshold 33.0-37.0 [facility] Work Phone: [phone] 0.1 K/uL Normal 0.0-0.2 [facility] Work Phone: [phone] 0.8 K/uL Normal 0.2-0.8 [facility] Work Phone: [phone] 2.3 K/uL Normal 1.0-4.8 [facility] Work Phone: [phone] 5.6 K/uL Normal 1.4-6.5 [facility] Work Phone: [phone] 25.1 pg below low threshold 27.0-31.3 [facility] Work Phone: [phone] 78.5 fL below low threshold 79.4-94.8 [facility] Work Phone: [phone] 44.4 % Normal 37.0-47.0 [facility] Work Phone: 14.2 g/dL Normal 12.0-16.0 [facility] Work Phone: 5.66 {M/uL} above high threshold 4.20-5.40 [facility] Work Phone: [phone] 8.9 K/uL Normal 4.8-10.8 [facility] Work Phone: [phone] 14.8 {sec} Normal 12.3-14.9 [facility] Work Phone: 30.1 {sec} Normal 24.4-36.8 [facility] Work Phone: Comment on above: Effective 02/27/2020: Heparin Therapeutic Range: 64.0 ? 98.0 seconds. 4.2 g/dL Normal 3.5-4.6 [facility] Work Phone: [phone] 3.9 g/dL above high threshold 2.3-3.5 [facility] Work Phone: 44 U/L above high threshold 0-35 [facility] Work Phone: [phone] U/L above high threshold 0-33 [facility] Work Phone: 89 U/L Normal 40-130 [facility] Work Phone: [phone] 0.5 mg/dL Normal 0.2-0.7 [facility] Work Phone: [phone] 8.1 g/dL above high threshold 6.3-8.0 [facility] Work Phone: [phone] 9.2 mg/dL Normal 8.5-9.9 [facility] Work Phone: [phone] >60.0 Normal >60 [facility] Work Phone: [phone] Comment on above: Pediatric calculator linkhttps://www.kidney.org/professionals/kdoqi/gfr_calculator [...] 13 {mEq/L} Normal 9-[facility] Work Phone: 26 {mEq/L} Normal 20-[address] [facility] Work Phone: 100 {mEq/L} Normal 95-[address] [facility] Work Phone: 4.4 {mEq/L} Normal 3.4-4.[address] [facility] Work Phone: 139 {mEq/L} Normal 135-[address] [facility] [facility] Work Phone: Negative Normal NEG [facility] Work Phone: Comment on above: NEGATIVE: MRSA DNA n ot detected by nucleic acid amplification. Results should be used as an adjunct to nosocomial control efforts toidentify patients needing enhanced precautions.The test is not intended to identify patients with staphylococcalinfections. Results should not be used to guide or monitor treatmentfor MRSA infections.[facility] Social [employer] [facility] [place] [address] Swab Normal [facility] Work Phone: Partial Thromboplastin Timeo n 06-24-2022 aPTT Coag (Bld) [Time] 30.1 s Normal 24.4-36.8 [facility] Comment on above: Result Comment: Effe ctive 02/27/2020: Heparin Therapeutic Range: 64.0 ? 98.0 seconds. Performed By: #### U MARIA ELENA #### [facility] [address] [place] [address] Prothrombin Timeon 3 INR Coag (PPP) [Relative time] 1.1 {INR} Normal [facility] Comment on above: Performed By: #### P T #### [facility] [address] [place] [address] PT Coag (PPP) [Time] 14.8 s Normal 12.3-14.9 [facility] Comment on above: Performed By: #### P T #### [facility] [address] [place] [address] Protime-INRon 06-24-2022 INR Coag (Bld) [Relative time] 1.1 {INR} [facility] PT Coag (PPP) [Time] 14.8 s [facility] [employer] TYPE AND SCREENon 06-24-2022 ABO/Rh Negative [facility] Comment on above: @06/24/22 14:01 by Elaina FISCHER: BACK TYPE CONFIRMED IN TUBE. LMB Confirmation type ne eds to be drawn. [facility] Type and 3 cell Screen OB Ca ptureon 06-24-2022 Type and 3 cell Screen OB Capture PATIENT: PINKY Prince LOC: GIFTYBILL# : [id number] : 1970 SEX: F ORDERED BY: GILMAR COX ORDERED : 06/24/2022 11:08 COLLECTED: 06/24/2022 11:45 ORDER : [id number] RECEIVED : 06/24/2022 11:45 Confirmation type needs to be drawn. --- TEST NAME RESULT UNITS RANGES ABN FL ST [facility] Capture A NEG F @06/24/22 14:01 by RUDY: BACK TYPE CONFIRMED IN TUBE. LMB Antibody 3 Cell Scrn Captu NEG F -- Normal [facility] Comment on above: Performed By: #### T SO3C #### [facility] [address] [place] [address] Urinalysis with Reflex to Cu ltureon 06-24-2022 Bilirubin Urine Negative Negative [facility] Blood, Urine Negative Negative [facility] Clarity, UA Clear Clear [facility] Color, UA Yellow Straw/Lorain ow [facility] Glucose, Ur Negative Negative mg/dL [facility] Ketones Ql (U) Negative Negative mg/dL [facility] Leukocyte esterase Test strip Ql (U) TRACE Abnormal Negative [facility] Nitrite, Urine Negative Negative [employer] [facility] pH, UA 7.0 5.0 - 9.0 [facility] Protein (U) [Mass/Vol] 30 mg/dL Abnormal Negative [facility] Specific [place], UA 1.010 1.005 - 1.030 [facility] Urine Reflex to Culture Not Indicated [facility] Urobilinogen, Urine 0.[address] [facility] Urinalysis, reflex to cultur gurinder 06-24-2022 Urine Reflexed to Culture Not Indicated Normal [facility] Comment on above: Performed By: #### U AR #### [facility] [address] [place] [address] Bilirubin Ql (U) Negative Normal Negative [facility] Comment on above: Performed By: #### U AR #### [facility] [address] [place] [address] Clarity (U) Clear Normal Clear [facility] Comment on above: Performed By: #### U AR #### [facility] [address] [place] [address] Color (U) Yellow Normal Straw/Lorain [facility] Comment on above: Performed By: #### U AR #### [facility] [address] [place] [address] Glucose Ql (U) Negative Normal Negative [facility] Comment on above: Performed By: #### U AR #### [facility] [address] [place] [address] Hemoglobin Ql (U) Negative Normal Negative [facility] Comment on above: Performed By: #### U AR #### [facility] [address] [place] [address] Ketones Ql (U) Negative Normal Negative [facility] Comment on above: Performed By: #### U AR #### [facility] [address] [place] [address] Leukocyte esterase Test strip Ql (U) TRACE Abnormal Negative [facility] Comment on above: Performed By: #### U AR #### [facility] [address] [place] [address] Nitrite Ql (U) Negative Normal Negative [facility] Comment on above: Performed By: #### U AR #### [facility] [address] [place] [address] pH (U) 7.0 [pH] Normal 5.0-9.0 [facility] Comment on above: Performed By: #### U AR #### [facility] [address] [place] [address] Protein Ql (U) 30 mg/dL Abnormal Negative [facility] Comment on above: Performed By: #### U AR #### [facility] [address] [place] [address] Specific gravity (U) [Rel density] 1.010 Normal 1.005-1.03 [facility] Comment on above: Performed By: #### U AR #### [facility] [address] [place] [address] Urobilinogen Qn (U) 0.2 {Reji'U}/dL Normal < 2.0 [facility] Comment on above: Performed By: #### U AR #### [facility] [address] [place] [address] Urine Microscopicon 06-25-19 23 Urine Bacteria FEW Abnormal Negative [facility] Comment on above: Performed By: #### U MARIA ELENA #### [facility] [address] [place] [address] Urine Epithelial Cells Auto 0-2 Normal 0-5 [facility] Comment on above: Performed By: #### U MARIA ELENA #### [facility] [address] [place] [address] Urine Hyaline Casts Auto 0-1 Normal 0-5 [facility] Comment on above: Performed By: #### U MARIA ELENA #### [facility] [address] [place] [address] Urine RBC Auto 0-2 Normal 0-5 [facility] Comment on above: Performed By: #### U MARIA ELENA #### [facility] [address] [place] [address] Urine WBC Auto 3-5 Normal 0-5 [facility] Comment on above: Performed By: #### U MARIA ELENA #### [facility] [address] [place] [address] BILATERAL KNEE COMPLT, 4 OR MORE VIEWSon 05-18-2022 BILATERAL KNEE COMPLT, 4 OR MORE VIEWS Patient Name: GEETA SHELTON STUDY: BILATERAL KNEE; COMPLT, 4 OR MORE VIEWS; ; 05/18/2022 9:07 am INDICATION: pain M25.561: Acute pain of both knees M25.562:. ACCESSION NUMBER(S): [id number] ORDERING CLINICIAN: ACOSTA SCHAFER FINDINGS: Weightbearing four [...] abnormalities Electronically signed by: ACOSTA SCHAFER MD [facility] Initial Visit (Orthopaedic S urgery)on 05-18-2022 Initial Visit (Orthopaedic Surgery) Diagnoses/Problems Assessed Acute pain of both knees (338.19,719.46) (M25.561,M25.562) Orders Acute pain of both knees Xray Knee Bilateral, Complete, 4 or More Views; Status:Resulted - Preliminary; Done: [id number] 09:07AM Radiologist to Determine Optimal Study : [...] Radiologyon 05-18-2022 XR Knee 4 Views Normal -[place] Work Phone: Albumin [Mass/volume] in Ser um or PlasmaOrdered By: Elizabeth Alvarado on 05-07-2022 Albumin [Mass/Vol] 3.9 g/dL 3.2-5.5 [facility] Alkaline phosphatase [Enzyma tic activity/volume] in Serum or PlasmaOrdered By: Elizabeth Alvarado on 05-07-2022 ALP [Catalytic activity/Vol] 83 U/L 32-92 [facility] Aspartate aminotransferase [ Enzymatic activity/volume] in Serum or PlasmaOrdered By: Elizabeth Alvarado on 05-07-2022 AST [Catalytic activity/Vol] 56 U/L 10-42 [facility] Basophils Auto (Bld) [#/Vol] Ordered By: Elizabeth Alvarado on 05-07-2022 Basophils (Bld) [#/Vol] 0.1 10*3/uL 0.0-0.2 [facility] Basophils/100 WBC Auto (Bld) Ordered By: Elizabeth Alvarado on 05-07-2022 Basophils/100 WBC (Bld) 0.7 % . [facility] Bilirubin.total [Mass/volume ] in Serum or PlasmaOrdered By: Elizabeth Alvarado on 05-07-2022 Bilirubin [Mass/Vol] 0.6 mg/dL 0.3-1.2 [facility] Calcium [Mass/volume] in Ser um or PlasmaOrdered By: Elizabeth Alvarado on 05-07-2022 Calcium [Mass/Vol] 9.1 mg/dL 8.2-10.2 [facility] Carbon dioxide, total [Moles /volume] in Serum or PlasmaOrdered By: Elizabeth Alvarado on 05-07-2022 CO2 [Moles/Vol] 28.1 mmol/L 22.0-30.0 [facility] Chloride [Moles/volume] in S hugo or PlasmaOrdered By: Elizabeth Alvarado on 05-07-2022 Chloride [Moles/Vol] 100 mmol/L 95-114 [facility] Cholesterol [Mass/volume] in Serum or PlasmaOrdered By: Elizabeth Alvarado on 05-07-2022 Cholesterol [Mass/Vol] 181 mg/dL 140-200 [facility] Comment on above: Chol less than 200 m g/dl low riskChol 201-239 mg/dl borderline riskChol 240 mg/dl and greater high risk Cholesterol in LDL Calc [Mas s/Vol]Ordered By: Elizabeth Alvarado on 05-07-2022 Cholesterol in LDL [Mass/Vol] 102 mg/dL 0-100 [facility] Comment on above: LDL ATP III CLASSIFI CATIONLDL less than 100 mg/dL OptimalLDL 100-129 mg/dL Near or above optimalLDL 130-159 mg/dL Borderline highLDL 160-189 mg/dL HighLDL greater than 189 mg/dL Very high Cholesterol in VLDL Calc [Ma ss/Vol]Ordered By: Elizabeth Alvarado on 05-07-2022 Cholesterol in VLDL [Mass/Vol] 20 mg/dL [facility] Creatinine and Glomerular fi ltration rate.predicted panel (S/P/Bld)Ordered By: Elizabeth Alvarado on 05-07-2022 Creatinine [Mass/Vol] 0.65 mg/dL 0.44-1.03 [facility] Eosinophils Auto (Bld) [#/Vo l]Ordered By: Elizabeth Alvarado on 05-07-2022 Eosinophils (Bld) [#/Vol] 0.1 10*3/uL 0.0-0.45 [facility] Eosinophils/100 WBC Auto (Bl d)Ordered By: Elizabeth Alvarado on 05-07-2022 Eosinophils/100 WBC (Bld) 1.8 % . [facility] Erythrocyte distribution wid th Auto (RBC) [Ratio]Ordered By: Elizabeth Alvarado on 05-07-2022 Erythrocyte distribution width (RBC) [Ratio] 17.8 % 11.9-15.3 [facility] Estimated glomerular filtrat ion rate (GFR) non- AmericanOrdered By: Elizabeth Alvarado on 05-07-2022 GFR/1.73 sq M.predicted among non-blacks MDRD (S/P/Bld) [Vol rate/Area] > 60 mL/Min [facility] Globulin Calc (S) [Mass/Vol] Ordered By: Elizabeth Alvarado on 05-07-2022 Globulin (S) [Mass/Vol] 3.7 g/dL [facility] Glucose [Mass/volume] in Ser um or PlasmaOrdered By: Elizabeth Alvarado on 05-07-2022 Glucose [Mass/Vol] 137 mg/dL 70-100 [facility] Comment on above: ADA recommended refe rence rangeRandom Glucose Reference Range is dependent on time and content of last meal. Glucose of more than 200 mg/dL in a nonstressed, ambulatory subject supports the diagnosis of Diabetes Mellitus. Hematocrit Auto (Bld) [Volum e fraction]Ordered By: Elizabeth Alvarado on 05-07-2022 Hematocrit (Bld) [Volume fraction] 45.4 % 34.0-46.4 [facility] Hemoglobin [Mass/volume] in BloodOrdered By: Elizabeth Alvarado on 05-07-2022 Hemoglobin (Bld) [Mass/Vol] 14.1 g/dL 11.8-15.4 [facility] Leukocytes [#/volume] correc silverio for nucleated erythrocytes in Blood by Automated counOrdered By: Elizabeth Alvarado on 05-07-2022 WBC corrected for nucl RBC Auto (Bld) [#/Vol] 7.9 10*3/uL 3.8-11.6 [facility] Lymphocytes Auto (Bld) [#/Vo l]Ordered By: Elizabeth Alvarado on 05-07-2022 Lymphocytes (Bld) [#/Vol] 2.4 10*3/uL 1.00-4.8 [facility] Lymphocytes/100 WBC Auto (Bl d)Ordered By: Elizabeth Alvarado on 05-07-2022 Lymphocytes/100 WBC (Bld) 30.9 % . [facility] MCH Auto (RBC) [Entitic mass ]Ordered By: Elizabeth Alvarado on 05-07-2022 MCH (RBC) [Entitic mass] 24.6 pg 24.7-34.3 [facility] MCHC Auto (RBC) [Mass/Vol]Or dered By: Elizabeth Alvarado on 05-07-2022 MCHC (RBC) [Mass/Vol] 31.0 g/dL 32.0-35.0 [facility] MCV Auto (RBC) [Entitic vol] Ordered By: Elizabeth Alvarado on 05-07-2022 MCV (RBC) [Entitic vol] 79.4 fL 80-100 [facility] Monocytes Auto (Bld) [#/Vol] Ordered By: Elizabeth Alvarado on 05-07-2022 Monocytes (Bld) [#/Vol] 0.7 10*3/uL 0.0-0.8 [facility] Monocytes/100 WBC Auto (Bld) Ordered By: Elizabeth Alvarado on 05-07-2022 Monocytes/100 WBC (Bld) 9.3 % . [facility] Neutrophils Auto (Bld) [#/Vo l]Ordered By: Elizabeth Avlarado on 05-07-2022 Neutrophils (Bld) [#/Vol] 4.5 10*3/uL 1.8-7.7 [facility] Neutrophils/100 WBC Auto (Bl d)Ordered By: Elizabeth Alvarado on 05-07-2022 Neutrophils/100 WBC (Bld) 57.3 % . [facility] No Panel InformationOrdered By: Elizabeth Alvarado on 05-07-2022 Estimated GFR () > 60 mL/Min [facility] Comment on above: GFR estimated refere nce range: According to KDOQI guidelines, <60 ml/min/1.73m2 is sufficient to diagnose a patient with chronic kidney disease. Pharmacy Creatinine Clearance (Chem N/A [facility] Nucleated erythrocytes [Pres ence] in Blood by Automated countOrdered By: Elizabeth Alvarado on 05-07-2022 Nucleated RBC Auto Ql (Bld) 0.1 /100{WBC} 0-0.5 [facility] Platelet mean volume Auto (B ld) [Entitic vol]Ordered By: Elizabeth Alvarado on 05-07-2022 Platelet mean volume (Bld) [Entitic vol] 9.4 fL 6.3-10.7 [facility] Platelets Auto (Bld) [#/Vol] Ordered By: Elizabeth Alvarado on 05-07-2022 Platelets (Bld) [#/Vol] 242 10*3/uL 150-450 [facility] Potassium [Moles/volume] in Serum or PlasmaOrdered By: Elizabeth Alvarado on 05-07-2022 Potassium [Moles/Vol] 4.3 mmol/L 3.5-5.1 [facility] Protein [Mass/volume] in Ser um or PlasmaOrdered By: Elizabeth Alvarado on 05-07-2022 Protein [Mass/Vol] 7.6 g/dL 6.1-7.9 [facility] RBC Auto (Bld) [#/Vol]Ordere d By: Elizabeth Alvarado on 05-07-2022 RBC (Bld) [#/Vol] 5.72 10*6/uL 3.60-5.00 [facility] Serum or plasma alanine ulloa otransferase measurement without P-5'-P (enzymatic activiOrdered By: Elizabeth Alvarado on 05-07-2022 ALT No additional P-5'-P [Catalytic activity/Vol] 61 U/L 10-60 [facility] Serum or plasma albumin/glob ulin mass ratioOrdered By: Elizabeth Alvarado on 05-07-2022 Albumin/Globulin [Mass ratio] 1.1 {ratio} [facility] Serum or plasma anion gap de terminationOrdered By: Elizabeth Alvarado on 05-07-2022 Anion gap [Moles/Vol] 11.2 mmol/L 6.0-15.0 [facility] Serum or plasma high density lipoprotein (HDL) cholesterol measurementOrdered By: Elizabeth Alvarado on 05-07-2022 Cholesterol in HDL [Mass/Vol] 58 mg/dL 35-85 [facility] Comment on above: HDL CHOL ATP-III CLA SSIFICATION Cardiovascular RiskHDL > or equal to 60 mg/dL LOWHDL < 40 mg/dL HIGH Serum or plasma total choles terol/high density lipoprotein (HDL) cholesterol mass ratOrdered By: Elizabeth Alvarado on 05-07-2022 Cholesterol.total/Choles terol in HDL [Mass ratio] 3.1 {ratio} <5.0 [facility] Sodium [Moles/volume] in Ser um or PlasmaOrdered By: Elizabeth Alvarado on 05-07-2022 Sodium [Moles/Vol] 135 mmol/L 136-146 [facility] TSH DL <= 0.005 mIU/L QnOrde red By: Elizabeth Alvarado on 05-07-2022 TSH Qn 4.21 m[IU]/L 0.45-5.33 [facility] Triglyceride [Mass/volume] i n Serum or PlasmaOrdered By: Elizabeth Alvarado on 05-07-2022 Triglyceride [Mass/Vol] 103 mg/dL 35-149 [facility] Comment on above: TRIG ATP III CLASSIF ICATIONTRIG less than 150 mg/dL NormalTRIG 150-199 mg/dL Borderline highTRIG 200-500 mg/dL High TRIG greater than 500 mg/dL Very highStandard traceable to the Center for Disease Conrtrol and Prevention (CDC) test method. Urea nitrogen [Mass/volume] in Serum or PlasmaOrdered By: Elizabeth Alvarado on 05-07-2022 Urea nitrogen [Mass/Vol] 14 mg/dL 9-23 [facility] WBC Auto (Bld) [#/Vol]Ordere d By: Elizabeth Alvarado on 05-07-2022 WBC (Bld) [#/Vol] 7.9 10*3/uL 3.8-11.6 [facility] Basophils Auto (Bld) [#/Vol] Ordered By: Tyler Villeda on 04-13-2022 Basophils (Bld) [#/Vol] 0.1 10*3/uL 0.0-0.2 [facility] Basophils/100 WBC Auto (Bld) Ordered By: Tyler Villeda on 04-13-2022 Basophils/100 WBC (Bld) 0.6 % . [facility] C reactive protein [Mass/vol ume] in Serum or PlasmaOrdered By: Tyler Villeda on 04-13-2022 CRP [Mass/Vol] 2.1 mg/dL 0.0-1.0 [facility] Eosinophils Auto (Bld) [#/Vo l]Ordered By: Tyler Villeda on 04-13-2022 Eosinophils (Bld) [#/Vol] 0.2 10*3/uL 0.0-0.45 [facility] Eosinophils/100 WBC Auto (Bl d)Ordered By: Tyler Villeda on 04-13-2022 Eosinophils/100 WBC (Bld) 2.0 % . [facility] Erythrocyte distribution wid th Auto (RBC) [Ratio]Ordered By: Tyler Villeda on 04-13-2022 Erythrocyte distribution width (RBC) [Ratio] 17.6 % 11.9-15.3 [facility] Erythrocyte sedimentation ra te by Photometric methodOrdered By: Tyler Villeda on 04-13-2022 ESR Photometric method (d) [Velocity] 54 mm/hr 0-29 [facility] Hematocrit Auto (Bld) [Volum e fraction]Ordered By: Tyler Villeda on 04-13-2022 Hematocrit (Bld) [Volume fraction] 44.4 % 34.0-46.4 [facility] Hemoglobin [Mass/volume] in BloodOrdered By: Tyler Villeda on 04-13-2022 Hemoglobin (Bld) [Mass/Vol] 14.3 g/dL 11.8-15.4 [facility] Leukocytes [#/volume] correc silverio for nucleated erythrocytes in Blood by Automated counOrdered By: Tyler Villeda on 04-13-2022 WBC corrected for nucl RBC Auto (Bld) [#/Vol] 8.6 10*3/uL 3.8-11.6 [facility] Lymphocytes Auto (Bld) [#/Vo l]Ordered By: Tyler Villeda on 04-13-2022 Lymphocytes (Bld) [#/Vol] 2.9 10*3/uL 1.00-4.8 [facility] Lymphocytes/100 WBC Auto (Bl d)Ordered By: Tyler Villeda on 04-13-2022 Lymphocytes/100 WBC (Bld) 33.6 % . [facility] MCH Auto (RBC) [Entitic mass ]Ordered By: Tyler Villeda on 04-13-2022 MCH (RBC) [Entitic mass] 24.9 pg 24.7-34.3 [facility] MCHC Auto (RBC) [Mass/Vol]Or dered By: Tyler Villeda on 04-13-2022 MCHC (RBC) [Mass/Vol] 32.2 g/dL 32.0-35.0 [facility] MCV Auto (RBC) [Entitic vol] Ordered By: Tyler Villeda on 04-13-2022 MCV (RBC) [Entitic vol] 77.4 fL 80-100 [facility] Monocytes Auto (Bld) [#/Vol] Ordered By: Tyler Villeda on 04-13-2022 Monocytes (Bld) [#/Vol] 0.9 10*3/uL 0.0-0.8 [facility] Monocytes/100 WBC Auto (Bld) Ordered By: Tyler Villeda on 04-13-2022 Monocytes/100 WBC (Bld) 10.0 % . [facility] Neutrophils Auto (Bld) [#/Vo l]Ordered By: Tyler Villeda on 04-13-2022 Neutrophils (Bld) [#/Vol] 4.6 10*3/uL 1.8-7.7 [facility] Neutrophils/100 WBC Auto (Bl d)Ordered By: Tyler Villeda on 04-13-2022 Neutrophils/100 WBC (Bld) 53.8 % . [facility] Nucleated erythrocytes [Pres ence] in Blood by Automated countOrdered By: Tyler Villeda on 04-13-2022 Nucleated RBC Auto Ql (Bld) 0.1 /100{WBC} 0-0.5 [facility] Platelet mean volume Auto (B ld) [Entitic vol]Ordered By: Tyler Villeda on 04-13-2022 Platelet mean volume (Bld) [Entitic vol] 9.1 fL 6.3-10.7 [facility] Platelets Auto (Bld) [#/Vol] Ordered By: Tyler Villeda on 04-13-2022 Platelets (Bld) [#/Vol] 296 10*3/uL 150-450 [facility] RBC Auto (Bld) [#/Vol]Ordere d By: Tyler Villeda on 04-13-2022 RBC (Bld) [#/Vol] 5.73 10*6/uL 3.60-5.00 [facility] WBC Auto (Bld) [#/Vol]Ordere d By: Tyler Villeda on 04-13-2022 WBC (Bld) [#/Vol] 8.6 10*3/uL 3.8-11.6 [facility] Serum or plasma follitropin measurement (units/volume)Ordered By: Elizabeth Alvarado on 12-03-2021 Follitropin Qn 18.3 m[IU]/mL [facility] Comment on above: FEMALE NORMALS (JUDIE ENOPAUSE) MID-FOLLICULAR PHASE: 3.9-8.8 mIU/mL MID-CYCLE PEAK: 4.5-22.5 mIU/mL MID-LUTEAL PHASE: 1.8-5.1 mIU/mL FEMALE NORMALS (POSTMENOPAUSE): 16.7-113.6 mIU/mL MALE NORMALS: 1.3-19.3 mIU/mL TSH DL <= 0.005 mIU/L QnOrde red By: Elizabeth Alvarado on 12-03-2021 TSH Qn 4.23 m[IU]/L 0.45-5.33 [facility] Total estrogen measurementOr dered By: Elizabeth Alvarado on 12-03-2021 Estrogen [Mass/Vol] 83 pg/mL . [facility] Comment on above: Prepubertal < 40 Female Cycle: 1-10 Days 16 - 328 11-20 Days 34 - 501 21-30 Days 48 - 350 Post-Menopausal 40 - 244 Performed at: - Lab[address] [id number] Hydrate Control Tender: Virgie Isaac MD, Phone: [phone] Coding Summary.on 01-26-2019 Coding Summary. CODING DATE: 019 FINAL [facility] STATUS: Home (Routine DC) PAYOR: Medicare APC DESCRIPTION 5111 Level 3 Musculoskeletal Procedures ADMIT DX: REASON FOR VISIT DX: M76.61 Achilles tendinitis, right leg FINAL DX: PRINCIPAL: M76.61 Achilles tendinitis, right leg SECONDARY: M24.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, right ankle I10 Essential (primary) hypertension J45.909 Unspecified asthma, uncomplicated K21.9 Gastro-esophageal reflux disease without esophagitis Z79.899 Other care home (current) drug therapy PYMT PROC APC STAT DESCRIPTION DOCTOR NAME DATE 21399 511 J1 Tenotomy, percutaneous, Thuan Travis DPM 01/24/2019 Achilles tendon (separate procedure); general anesthesia RT Right side (used to identify procedures performed on the right side of the body) 30441 Anesthesia for Shahab Almanzar Jr., DO 01/24/2019 [...] Revised Date Saved: 01/26/2019 11:32 am Normal [facility] Inpatient Patient Summaryon 01-24-2019 Inpatient Patient Summary [facility] Clinical Discharge Instructions PERSON INFORMATION Name: GEETA SHELTON PHYSICIANS Admitting Physician: Thuan Travis DPM Attending Physician: Thuan Travis DPM PCP: Nichole Caballero Discharge Diagnosis: Comment: PATIENT EDUCATION INFORMATION Instructions: Post Op Patient Instructions - FT (Custom); Foot Cryocuff Patient Instructions - FT (Custom); Thaddeus - Post Operative Instructions (Revised 12/20/13) (Custom) ([id number]) Medication Leaflets: Follow up: MEDICATION LIST Comment: Normal [facility] Lyteson 01-24-2019 Anion gap [Moles/Vol] 14 mmol/L Normal 6-16 [facility] Comment on above: Performed By: #### 2 [id number], [id number], 5200021, [id number], [id number], [id number] #### [facility] [address] [place] [address] Chloride [Moles/Vol] 107 mmol/L Normal 101-111 [facility] Comment on above: Performed By: #### 2 [id number], [id number], [id number], [id number], [id number], [id number] #### [facility] [address] [place] [address] CO2 [Moles/Vol] 23 mmol/L Normal 21-31 [facility] Comment on above: Performed By: #### 2 [id number], [id number], 4349053, [id number], 1927023, [id number] #### [facility] [address] [place] [address] Potassium [Moles/Vol] 4.9 mmol/L Normal 3.5-5.3 [facility] Comment on above: Performed By: #### 2 [id number], 8135842, 4585411, [id number], [id number], [id number] #### [facility] [address] [place] [address] Sodium [Moles/Vol] 139 mmol/L Normal 135-145 [facility] Comment on above: Performed By: #### 2 [id number], 7098926, 9924095, [id number], 5377921, [id number] #### [facility] [address] [place] [address] Main OR Intraoperative Recor don 01-24-2019 Main OR Intraoperative Record IntraOp Document Type FT Summary Primary Physician: Thuan Travis DPM Finalized Date/Time: 01/24/19 11:33:24 Pt. Name: GEETA SHELTON/Sex: 1970 Female Med Rec #: [id number] Physician: Thuan Travis DPM Financial #: [id number] Pt. Type: A Room/Bed: [facility] [...] Cheryl Role Performed Anesthesiologist Surgeon - Primary WELL DRILLER Air Box Tester Time In 01/24/19 08:48:00 01/24/19 09:00:00 01/24/19 [...] Jani AGUILAR, Kallie Yuen RN, Zuly Duarte ARMATURE REPAIRER, Prashant Panda Role Performed Major General - Primary Major General - Other Scrub - Primary Time In [...] RN, Emily A, Schmitz RN, Gerald Veliz ARMATURE REPAIRER, Prashant M Time Out Complete 01/24/19 08:59:00 [...] AGUILAR, CNOR, Alpa AGUILAR, Zuly Luna, Gerald ARMATURE REPAIRER, R, Gerald ARMATURE REPAIRER, Prashant Panda Outcomes Met? Yes Yes Last [...] to transfer/transport General Comments: REPORT GIVEN TO GOLF COURSE EQUIPMENT OPERATORRN. Cy PRIDE RN Dressing/Packing FT Pre-Care [...] safely administered during the perioperative period For [facility] please see scanned medication reconcilliation form for medications used at the field during the procedure. Temperature Control Entry 1 Temperature Control BLANKET MISTRAL AIR Quantity 1 Aid TORSO [[id number]][F] Fluid/[place] Unit Mistral warming system Setting HIGH/43 Body Site Upper anterior torso Last Modified By: Kallie Gunter RN 01/24/19 08:46:43 Case Comments Finalized By: Maye Silverio CST Document Signatures Signed By: Kallie Gunter RN 01/24/19 09:26 Maye Silverio CST 01/24/19 11:33 Normal [facility] Main OR PACU I Recordon Main OR PACU I Record PACU Phase I Docum ent Type FT Summary Primary Physician: Thuan Travis DPM Finalized Date/Time: 01/24/19 10:08:45 Pt. Name: GEETA SHELTON/Sex: 1970 Female Med Rec #: [id number] Physician: Thuan Travis DPM Financial #: [id number] Pt. Type: A Room/Bed: Admit/Disch: 01/24/19 07:58:48 [...] By: Swathi Carr RN 01/24/19 10:08 Normal [facility] Main OR PACU II Recordon Main OR PACU II Record PACU Phase II Doc ument Type FT Summary Primary Physician: Thuan Travis DPM Finalized Date/Time: 01/24/19 13:09:21 Pt. Name: GEETA SHELTON/Sex: 1970 Female Med Rec #: [id number] Physician: Thuan Travis DPM Financial #: [id number] Pt. Type: A Room/Bed: [facility] [...] Keeley Putnam LPN 01/24/19 13:09 [facility] Main OR Preoperative Recordo n 01-24-2019 Main OR Preoperative Record PreOp Document Type FT Summary Primary Physician: Thuan Travis DPM Number: [id number] Finalized Date/Time: 01/24/19 09:12:07 Pt. Name: GEETA SHELTON Austyn/Sex: 1970 Female Med Rec #: [id number] Physician: Thuan Travis DPM Financial #: [id number] Pt. Type: A Room/Bed: [place] [address] Admit/Disch: 01/24/19 07:58:48 - Institution: Case Times [...] By: Kallie Gunter RN 01/24/19 09:12 Normal [facility] Operative Reporton 10--201 9 Operative Report [...] visit. Thuan Travis D.P.M. aek Dictated: 01/24/2019 #[id number] Typed: 01/24/2019 #[id number] cc: Thuan Travis D.P.M. [facility] Comment on above: Result Comment: Elec tronically Signed By: Thuan Travis DPM\.br\Date and Time Signed: 01/24/19 10:24 EDT Patient Education - Texton 1 Patient Education - Text (Inserted Image . Unable to display) [place], [place] Thuan Travis DPM, FACFAS POST OPERATIVE [...] feel free to call the doctor at: [phone] or [phone] Travis paged. ___ Patient signature Date ___ Dr. Anand Sauer DPM, FACFAS Date Revised: 06-02 [facility] Progress Note-Physicianon Progress Note-Physician Patient: GEETA SHELTON [...] Complications: None. Anesthesia type: General. [facility] Comment on above: Result Comment: Elec tronically Signed By: Tuhan Trvais DPM\.br\Date and Time Signed: 01/24/19 09:27 EDT Coding Summary.on 01-12-2019 Coding Summary. CODING DATE: 019 FINAL [facility] STATUS: Home (Routine DC) PAYOR: Medicare [...] CphT Date Saved: 01/12/2019 11:10 am Normal [facility] BUNon 01-11-2019 Urea nitrogen [Mass/Vol] 29 mg/dL High 5-21 [facility] Comment on above: Performed By: #### 2 [id number], 5607905, 9874372, 99208579, 6676226, 7007875 #### [facility] [address] [place] [address] CBC w/Indiceson 01-11-2019 Erythrocyte distribution width (RBC) [Ratio] 16.1 % High 10.9-14.2 [facility] Comment on above: Performed By: #### 1 [id number], 8054621, 6750227, 5239441, 4020130 #### [facility] [address] [place] [address] Hematocrit (Bld) [Volume fraction] 42.1 % Normal 34.0-46.0 [facility] Comment on above: Performed By: #### 1 9850346, 6798683, 2953393, 2247655, 1894092 #### [facility] [address] [place] [address] Hemoglobin (Bld) [Mass/Vol] 13.8 g/dL Normal 12.0-16.0 [facility] Comment on above: Performed By: #### 1 3906824, 2329881, 2192284, 0182769, 8731195 #### [facility] [address] [place] [address] MCH (RBC) [Entitic mass] 25.8 pg Low 27.0-34.0 [facility] Comment on above: Performed By: #### 1 4193462, 6507713, 0087600, 8602263, 7553689 #### [facility] [address] [place] [address] MCHC (RBC) [Mass/Vol] 32.8 g/dL Low 33.3-35.7 [facility] Comment on above: Performed By: #### 1 5580905, 6954237, 9638725, 5634849, 2145322 #### [facility] [address] [place] [address] MCV (RBC) [Entitic vol] 78.5 fL Low 80.0-100.0 [facility] Comment on above: Performed By: #### 1 0957385, 3494779, 4162863, 4214815, 7386012 #### [facility] [address] [place] [address] Platelet mean volume (Bld) [Entitic vol] 9.9 fL Normal 6.4-10.8 [facility] Comment on above: Performed By: #### 1 7836463, 4000519, 0473054, 4139915, 1382661 #### [facility] [address] [place] [address] Platelets (Bld) [#/Vol] 283.0 E9/L Normal 150. 0-500. 0 [facility] Comment on above: Performed By: #### 1 3616327, 7854717, 3062174, 3032899, 0665324 #### [facility] [address] [place] [address] RBC (Bld) [#/Vol] 5.4 E12/L Normal 4.3-5.9 [facility] Comment on above: Performed By: #### 1 7893185, 0996558, 0077301, 2532097, 7346146 #### [facility] [address] [place] [address] WBC corrected for nucl RBC Auto (Bld) [#/Vol] 8.6 E9/L Normal 4.0-11.0 [facility] Comment on above: Performed By: #### 1 5399081, 5551154, 7869806, 5892744, 6177625 #### [facility] [address] [place] [address] Creatinineon 01-11-2019 Creatinine [Mass/Vol] 1.0 mg/dL Normal 0.5-1.3 [facility] Comment on above: Performed By: #### 2 013761, 9131450, 2871247, 98350014, 8787123, 0726712 #### [facility] [address] [place] [address] Glucoseon 01-11-2019 Glucose [Mass/Vol] 95 mg/dL Normal 55-199 [facility] Comment on above: Performed By: #### 1 8818482, 2914611, 6253657, 6472043, 0285225 #### [facility] [address] [place] [address] eGFRon 01-11-2019 GFR/1.73 sq M predicted among blacks MDRD (S/P/Bld) [Vol rate/Area] mL/min/{1.73_m2} Normal >=59 [facility] Comment on above: Order Comment: Order added by Discern Expert. Result Comment: eGFR is race adjusted. AA=. Performed By: #### 2 555789, 0264132, 8023737, 16987554, 5428381, 1780567 #### [facility] [address] [place] [address] GFR/1.73 sq M predicted among non-blacks MDRD (S/P/Bld) [Vol rate/Area] 59 mL/min/1.73 m2 Normal >=59 [facility] Comment on above: Order Comment: Order added by Discern Expert. Result Comment: Geodetic Survey Director stefanie kidney disease could be indicated at eGFR's of less than 60 mL/min/1.73m2. Kidney failure is indicated at less than 15 mL/min/1.73m2. Performed By: #### 2 954118, 0078309, 5289335, 09200802, 0015904, 5572278 #### [facility] [address] [place] [address] Coding Summary.on 12-15-2018 Coding Summary. CODING DATE: 019 FINAL [facility] STATUS: Home (Routine DC) PAYOR: Medicare [...] CphT Date Saved: 12/15/2018 01:36 pm Normal [facility] BUNon 12-14-2018 Urea nitrogen [Mass/Vol] 19 mg/dL Normal 5-21 [facility] Comment on above: Performed By: #### 2 457132, 3818603, 4209334, 92485719, 8812147, 0448658 #### [facility] [address] [place] [address] CBC w/Indiceson 12-14-2018 Erythrocyte distribution width (RBC) [Ratio] 17.1 % High 10.9-14.2 [facility] Comment on above: Performed By: #### 2 893300, 2564489, 7841881, 16884877, 3446311, 8199802 #### [facility] [address] [place] [address] Hematocrit (Bld) [Volume fraction] 41.5 % Normal 34.0-46.0 [facility] Comment on above: Performed By: #### 2 921803, 5559871, 0467538, 32576401, 3865125, 1308875 #### [facility] [address] [place] [address] Hemoglobin (Bld) [Mass/Vol] 13.2 g/dL Normal 12.0-16.0 [facility] Comment on above: Performed By: #### 2 921687, 1181418, 3650212, 65566824, 2125373, 1546662 #### [facility] [address] [place] [address] MCH (RBC) [Entitic mass] 25.0 pg Low 27.0-34.0 [facility] Comment on above: Performed By: #### 2 811421, 5403572, 4476370, 73989147, 2487204, 1476394 #### [facility] [address] [place] [address] MCHC (RBC) [Mass/Vol] 31.7 g/dL Low 33.3-35.7 [facility] Comment on above: Performed By: #### 2 766548, 9873054, 2991969, 95160899, 0364829, 4853150 #### [facility] [address] [place] [address] MCV (RBC) [Entitic vol] 78.7 fL Low 80.0-100.0 [facility] Comment on above: Performed By: #### 2 031726, 2046824, 7085931, 72599806, 8446127, 4285160 #### [facility] [address] [place] [address] Platelet mean volume (Bld) [Entitic vol] 9.4 fL Normal 6.4-10.8 [facility] Comment on above: Performed By: #### 2 073377, 7530939, 2967284, 16818470, 0093689, 8470631 #### [facility] [address] [place] [address] Platelets (Bld) [#/Vol] 268.0 E9/L Normal 150. 0-500. 0 [facility] Comment on above: Performed By: #### 2 811788, 2780049, 9689558, 02396976, 5140378, 0935156 #### [facility] [address] [place] [address] RBC (Bld) [#/Vol] 5.3 E12/L Normal 4.3-5.9 [facility] Comment on above: Performed By: #### 2 013669, 8970848, 0036883, 05702825, 6740250, 3453179 #### [facility] [address] [place] [address] WBC corrected for nucl RBC Auto (Bld) [#/Vol] 10.6 E9/L Normal 4.0-11.0 [facility] Comment on above: Performed By: #### 2 856122, 9844620, 4780060, 80323038, 7261752, 6397263 #### [facility] [address] [place] [address] Creatinineon 12-14-2018 Creatinine [Mass/Vol] 0.7 mg/dL Normal 0.5-1.3 [facility] Comment on above: Performed By: #### 2 544728, 2103337, 5063744, 03455075, 2548749, 2545738 #### [facility] [address] [place] [address] Glucoseon 12-14-2018 Glucose [Mass/Vol] 138 mg/dL Normal 55-199 [facility] Comment on above: Performed By: #### 2 262379, 7886310, 8003313, 70394464, 1674523, 9730886 #### [facility] [address] [place] [address] Lyteson 12-14-2018 Anion gap [Moles/Vol] 17 mmol/L High 6-16 [facility] Comment on above: Performed By: #### 2 025205, 0792804, 5778794, 02477302, 1598587, 0128007 #### [facility] [address] [place] [address] Chloride [Moles/Vol] 95 mmol/L Low 101-111 [facility] Comment on above: Performed By: #### 2 520047, 3616359, 6396374, 62694475, 3761358, 5427982 #### [facility] [address] [place] [address] CO2 [Moles/Vol] 26 mmol/L Normal 21-31 [facility] Comment on above: Performed By: #### 2 897759, 0675223, 1831310, 58079838, 9205872, 0083087 #### [facility] [address] [place] [address] Potassium [Moles/Vol] 3.9 mmol/L Normal 3.5-5.3 [facility] Comment on above: Performed By: #### 2 809960, 5092482, 6646578, 28608307, 9414858, 4221104 #### [facility] [address] [place] [address] Sodium [Moles/Vol] 134 mmol/L Low 135-145 [facility] Comment on above: Performed By: #### 2 396786, 7858167, 9409609, 19424002, 9230327, 5008245 #### [facility] [address] [place] [address] XR Chest 2 Viewson 9 XR Chest [...] MD Transcribed by: MAGEN Technologist: KRISTYN Thornton [facility] eGFRon 12-14-2018 GFR/1.73 sq M predicted among blacks MDRD (S/P/Bld) [Vol rate/Area] mL/min/{1.73_m2} Normal >=59 [facility] Comment on above: Order Comment: Order added by Discern Expert. Result Comment: eGFR is race adjusted. AA=. Performed By: #### 2 876865, 9691198, 7437220, 15633704, 7390309, 9591144 #### [facility] [address] [place] [address] GFR/1.73 sq M predicted among non-blacks MDRD (S/P/Bld) [Vol rate/Area] mL/min/{1.73_m2} Normal >=59 [facility] Comment on above: Order Comment: Order added by Discern Expert. Result Comment: Geodetic Survey Director stefanie kidney disease could be indicated at eGFR's of less than 60 mL/min/1.73m2. Kidney failure is indicated at less than 15 mL/min/1.73m2. Performed By: #### 2 847422, 2781604, 6960726, 21613314, 1739959, 2816491 #### [facility] [address] [place] [address] Vital Signs Date Time Vital Sign Value Performing Clinician Facility 09-30-2023 09:36-0400 Body height 165.1 cm PHYSICIAN [facility] 09-30-2023 09:36-0400 Body mass index (BMI) [Ratio] 46.2 kg/m2 PHYSICIAN [facility] 09-30-2023 09:36-0400 Body temperature 97.6 [degF] PHYSICIAN NO [facility] 09-30-2023 09:36-0400 Body weight 126.09 kg PHYSICIAN NO [facility] 09-30-2023 09:36-0400 Diastolic blood pressure 85 mm[Hg] PHYSICIAN [facility] 09-30-2023 09:36-0400 Heart rate 87 /min PHYSICIAN NO [facility] 09-30-2023 09:36-0400 Respiratory rate 20 /min PHYSICIAN NO [facility] 09-30-2023 09:36-0400 SaO2% (BldA) [Mass fraction] 98 % PHYSICIAN [facility] 09-30-2023 09:36-0400 Systolic blood pressure 139 mm[Hg] PHYSICIAN [facility] 03-02-2023 10:45-0500 Body height 165.1 cm Tyler Jean Other [facility] 03-02-2023 10:45-0500 Body mass index (BMI) [Ratio] 44.76 kg/m2 Tyler Jean Other [facility] 03-02-2023 10:45-0500 Body temperature 96.7 [degF] Tyler Mcnamaratyler Other [facility] 03-02-2023 10:45-0500 Body weight 122.02 kg Tyler Jean Other [facility] 03-02-2023 10:45-0500 Diastolic blood pressure 82 mm[Hg] Tyler Ted Other [facility] 03-02-2023 10:45-0500 Respiratory rate 18 /min Tyler Mcnamaratyler Other [facility] 03-02-2023 10:45-0500 SaO2% (BldA) [Mass fraction] 96 % Tyler Mcnamaratyler Other [facility] 03-02-2023 10:45-0500 Systolic blood pressure 136 mm[Hg] Tyler Mcnamaratyler Other [facility] 09-21-2022 09:11-0400 Body weight 128.72 kg TOLL BRIDGE OPERATOR Elizabethshaun Alvarado Work Phone: [facility] 09-21-2022 09:11-0400 Diastolic blood pressure 91 mm[Hg] TOLL BRIDGE OPERATOR Elizabeth Myerholtz Work Phone: [facility] 09-21-2022 09:11-0400 Heart rate 88 /min TOLL BRIDGE OPERATOR Elizabeth Myerholtz Work Phone: [facility] 09-21-2022 09:11-0400 Respiratory rate 20 /min TOLL BRIDGE OPERATOR Elizabeth Myerholtz Work Phone: [facility] 09-21-2022 09:11-0400 SaO2% (BldA) [Mass fraction] 96 % TOLL BRIDGE OPERATOR Elizabeth Myerholtz Work Phone: [facility] 09-21-2022 09:11-0400 Systolic blood pressure 145 mm[Hg] RHEA Alvarado Work Phone: [facility] 08-16-2022 13:57-0400 Body temperature 98 [degF] RHEA Alvarado Work Phone: [facility] 08-16-2022 13:42-0400 Body height 165.1 cm RHEA Alvarado Work Phone: [facility] 07-03-2022 08:14-0500 Body temperature 97.9 [degF] Acosta Schafer MD Work Phone: [employer] 07-03-2022 08:14-0500 Diastolic blood pressure 70 mm[Hg] Acosta Schafer MD Work Phone: [employer] 07-03-2022 08:14-0500 Heart rate 83 /min Acosta Schafer MD Work Phone: [facility] 07-03-2022 08:14-0500 Respiratory rate 18 /min Acosta Schafer MD Work Phone: [employer] 07-03-2022 08:14-0500 SaO2% (BldA) [Mass fraction] 98 % Acosta Schafer MD Work Phone: [employer] 07-03-2022 08:14-0500 Systolic blood pressure 129 mm[Hg] Acosta Schafer MD Work Phone: [employer] [facility] 07-02-2022 09:45-0500 Body mass index (BMI) [Ratio] 50.66 kg/m2 Acosta Schafer MD Work Phone: [employer] [facility] 07-02-2022 09:45-0500 Body weight 129.73 kg Acosta Schafer MD Work Phone: [employer] 06-24-2022 11:20-0500 Body height 160 cm Mloz Rn [employer] [facility] 06-24-2022 11:20-0500 Body mass index (BMI) [Ratio] 50.79 kg/m2 [facility] 06-24-2022 11:20-0500 Body temperature 97.9 [degF] [facility] 06-24-2022 11:20-0500 Body weight 130.05 [address] [facility] [employer] 06-24-2022 11:20-0500 Diastolic blood pressure 87 mm[Hg] [facility] 06-24-2022 11:20-0500 Heart rate 73 /min Mloz Rn [facility] 06-24-2022 11:20-0500 Respiratory rate 16 /min [facility] 06-24-2022 11:20-0500 SaO2% (BldA) [Mass fraction] 98 % [facility]lo[facility] R[facility] 06-24-2022 11:20-0500 Systolic blood pressure 142 mm[Hg] [facility] 05-18-2022 08:46-0500 Body height 165.1 cm Acosta Schafer MD Work Phone: [facility] Work Phone: 05-18-2022 08:46-0500 Body mass index (BMI) [Ratio] 45.93 kg/m2 Acosta Schafer MD Work Phone: [facility] Work Phone: 05-18-2022 08:46-0500 Body surface area Derived from formula 2.27 m2 Acosta Schafer MD Work Phone: [facility] Work Phone: 05-18-2022 08:46-0500 Body weight 125.19 kg Acosta Schafer MD Work Phone: [facility] Work Phone: Encounters Encounter Date Encounter Type Care Provider Facility Start: 09-30-2023 End: 09-30-2023 ambulatory PHYSICIAN [facility] Work Phone: Start: 09-30-2023 End: 09-30-2023 Patient encounter procedure PHYSICIAN NO [facility] Ambulatory Work Phone: Start: 09-30-2023 Registered Recurring PHYSICIAN NO [facility] Acute Work Phone: Start: 09-30-2023 ambulatory Elizabeth Alvarado F acility:[facility] Start: 09-07-2023 End: 09-07-2023 Patient encounter procedure PHYSICIAN NO [facility] [place] Work Phone: Start: 08-24-2023 End: 08-24-2023 ambulatory RHEA Alvarado Work Phone: [facility] Work Phone: Start: 08-24-2023 End: 08-24-2023 Patient encounter procedure TOLL BRIDGE OPERATORNohelia Alvarado Work Phone: [facility] Start: 08-24-2023 End: 08-24-2023 Departed Referred RHEA Alvarado Work Phone: [facility] Start: 05-10-2023 End: 05-10-2023 ambulatory TOLL BRIDGE OPERATORNohelia Alvarado Work Phone: [facility] Work Phone: Start: 05-10-2023 End: 05-10-2023 Patient encounter procedure TOLL BRIDGE OPERATOR Elizabeth Alvarado Work Phone: [facility] Work Phone: Start: 03-02-2023 End: 03-02-2023 ambulatory Tyler Jean Other [facility] Other Start: 03-02-2023 Office outpatient vi sit 25 minutes Tyler Jean [facility] Vascular Surgery Start: 02-14-2023 End: 02-14-2023 ambulatory TOLL BRIDGE OPERATORNohelia Alvarado Work Phone: [facility] Work Phone: Start: 02-14-2023 End: 02-14-2023 Patient encounter procedure RHEA Alvarado Work Phone: [facility]Ul[facility]ound [facility] [place] Work Phone: Start: 01-26-2023 [facility] visit new patient Sindy rubio [facility] Vascular Surgery Start: 01-26-2023 End: 01-26-2023 ambulatory TOLL BRIDGE OPERATORNohelia Alvarado Work Phone: [facility] Other Start: 01-26-2023 End: 01-26-2023 Patient encounter procedure RHEA Alvarado Work Phone: [facility]XRay [facility] [place] Work Phone: Start: 12-29-2022 Patient encounter procedure Acosta Schafer MD Work Phone: [facility] Work Phone: Start: 12-29-2022 ambulatory Provider Pending Facili ty:[id number] Start: 11-25-2022 End: 11-25-2022 Patient encounter procedure RHEA Alvarado Work Phone: [facility]-Respiratory Therapy Work Phone: Start: 09-22-2022 Patient encounter procedure Acosta Schafer MD Work Phone: [facility] Work Phone: Start: 09-22-2022 ambulatory Provider Pending Facili ty:[id number] Start: 09-21-2022 End: 09-21-2022 ambulatory TOLL BRIDGE OPERATOR Elizabeth Alvarado Work Phone: [facility] Work Phone: Start: 09-21-2022 End: 09-21-2022 Registered Recurring RHEA Johnson Christiano Work Phone: [facility] Work Phone: Start: 08-11-[address] Acosta Alva [facility] [place] Facility:[id number] Start: 08-04-2022 End: 08-04-2022 Discharged Recurring RHEA Fraserjackie Alvarado Work Phone: [facility]-Physical Therapy [address] Start: 07-23-2022 End: 07-23-2022 ambulatory RHEA Hurley Christiano Work Phone: [facility] Work Phone: Start: 07-23-2022 End: 07-23-2022 Patient encounter procedure RHEA Fraserjackie Alvarado Work Phone: [facility]-Lab [facility] [place] Work Phone: Start: 07-16-2022 Telephone encounter Acosta Crews MD Work Phone: [facility] Work Phone: Start: 07-14-2022 Patient encounter procedure Acosta Schafer MD Work Phone: [facility] Work Phone: Start: 07-14-[address] Acosta Schafer Facility:[id number] Start: 07-07-2022 AUDIT Acosta sow MD Work Phone: 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 Work Phone: Start: 06-25-2022 ambulatory Mr. Merrill martinez [facility] Facility:[id number] Start: 06-25-2022 Encounter for other preprocedural examination Mr. Merrill Hernandez [place] [facility] Start: 06-24-2022 End: 06-29-2022 ambulatory [facility] Start: 06-24-2022 End: 06-28-2022 Subsequent hospital visit by physician Juan Manzano [facility] Start: 05-18-2022 Patient encounter procedure Acosta Schafer MD Work Phone: [facility] Work Phone: Start: 05-18-[address] Acosta Schafer Facility:[id number] Start: 05-07-2022 End: 05-07-2022 Patient encounter procedure RHEA Alvarado Work Phone: [facility] Work Phone: Start: 04-13-2022 End: 04-13-2022 ambulatory RHEA Alvarado Work Phone: [facility] Work Phone: Start: 04-13-2022 End: 04-13-2022 Patient encounter procedure RHEA Alvarado Work Phone: [facility] [place] Start: 12-17-2021 End: 12-17-2021 Patient encounter procedure RHEA Morinsaige Work Phone: [facility]Nuc Med [facility] [place] Start: 12-07-2021 End: 12-07-2021 Patient encounter procedure RHEA Morinbijupaula Work Phone: [facility]Ultrasound [facility] [place] Start: 12-03-2021 End: 12-03-2021 Departed Referred RHEA Johnson Christiano Work Phone: [facility] Services Procedures Date Procedure [...] TO MG FOR LOW K Arya Coronado TOLL BRIDGE OPERATOR - GAS MAIN FITTER Work Phone: Start: 07-03-2022 Blood count complete automated Arya Coronado TOLL BRIDGE OPERATOR - GAS MAIN FITTER Work Phone: Start: 07-02-2022 Dup-scan xtr veins unilateral/limited study Carlos A Hou DO Work Phone: Start: 07-02-2022 BASIC METABOLIC PANE L W/ REFLEX TO MG FOR LOW K Arya Coronado TOLL BRIDGE OPERATOR - GAS MAIN FITTER Work Phone: Start: 07-02-2022 Blood count complete automated Arya Coronado TOLL BRIDGE OPERATOR - GAS MAIN FITTER Work Phone: Start: 07-01-2022 Radiologic examinati on knee 1/2 views Arya Coronado TOLL BRIDGE OPERATOR - GAS MAIN FITTER Work Phone: Start: 07-01-2022 End: 07-01-2022 Revj [...] Start: 12-17-2021 Radionuclide three-p hase bone study TOLL BRIDGE OPERATORNohelia Alvarado Work Phone: Start: 12-07-2021 US scan of thyroid RHEA Alvarado Work Phone: Start: 02-01-2019 Anesthesia consultation Start: 01-24-2019 Anesthesia consultation Plan of Treatment Date Care Activity Detail Author Start: 06-29-2023 FUV, Provider: Acosta Schafer, Status: Pen, Time: 2:15 PM FUV, Provider: Acosta Schafer, Status: Pen, Time: 2:15 PM [facility] Work Phone: Start: 02-17-2023 Screening for malign ant neoplasm of colon [facility] Start: 12-29-2022 FUV, Provider: Acosta Schafer, Status: Pen, Time: 1:45 PM FUV, Provider: Acosta Schafer, Status: Pen, Time: 1:45 PM [facility] [place] Work Phone: Start: 08-11-2022 FUV, Provider: Acosta Schafer, Status: Pen, Time: 9:45 AM FUV, Provider: Acosta Schafer, Status: Pen, Time: 9:45 AM [facility] [place] Work Phone: Start: 07-23-2022 [facility] Start: 07-14-2022 POV, Provider: Acosta Schafer, Status: Pen, Time: 9:00 AM POV, Provider: Acosta Schafer, Status: Pen, Time: 9:00 AM [facility] [place] Work Phone: Start: 07-01-2022 End: 07-01-2022 Admission to same day surgery center 07/01/2022 Surgery IP Unit Acosta Schafer MD [address] [place] [address] RIGHT KNEE RIGHT TOTAL KNEE REVISION INSTRUMENTATION ANTONELLA FEMORAL & SCIATIC BLOCK [facility] Comment on above: RIGHT KNEE RIGHT TOT AL KNEE REVISION INSTRUMENTATION ANTONELLA FEMORAL & SCIATIC BLOCK Start: 07-01-2022 End: 07-01-2022 Revj total knee arthrp w/wo algrft 1 component KNEE TOTAL ARTHROPLASTY REVISION Loosening of unicondylar knee replacement (HCC) 07/01/2022 10:[address] [facility] Start: 07-01-2022 Subsequent hospital visit by physician 07/01/2022 Hospital Encounter IP Unit Acosta Schafer MD [address] [place] [address] [facility] [place] Start: 07-01-2022 SURGNON, Provider: Acosta Schafer, Status: Pen, Time: 7:00 AM SURGNON, Provider: Acosta Schafer, Status: Pen, Time: 7:00 AM [facility] [place] Work Phone: Start: 06-25-2022 PREADMIT, Provider: Merrill Alejandro, Status: Pen, Time: 1:45 PM PREADMIT, Provider: Merrill Alejandro, Status: Pen, Time: 1:45 PM [facility] Work Phone: Start: 06-25-2022 [id number], Provider : Natali Tyson, Status: Pen, Time: 1:00 PM [id number], Provider: Natali Tyson, Status: Pen, Time: 1:00 PM [facility] Work Phone: Start: 06-24-2022 Annual Wellness Visi t (AWV) Annual Wellness Visit (AWV) [facility] Start: 12-17-2021 Radionuclide three-p hase bone study NM bone 3 phase [facility] Start: 12-17-2021 End: 12-17-2021 Patient encounter procedure Departed [facility] C[facility]-Nuc Med [facility] [place] Start: 12-07-2021 US scan of thyroid US thyroid [facility] Start: 12-07-2021 End: 12-07-2021 [facility] [place] Start: 11-23-2021 Influenza vaccination Flu vaccine (# 1) [facility] Start: 05-18-2021 COVID-19 Vaccine (4 - Booster for Moderna series) COVID-19 Vaccine (4 - Booster for Moderna series) [facility] Start: 02-23-2018 Screening for malign ant neoplasm of breast Breast cancer screen [facility] Start: 02-23-2018 Shingles vaccine (1 of 2) Shingles v accine (1 of 2) [facility] Start: 02-23-2013 Screening for malign ant neoplasm of colon [facility] Start: 2008 Lipid panel Lipids [facility] Start: 02-23-2003 Diabetes screen Diabetes screen [facility] Start: 02-23-1998 Screening for malign ant neoplasm of cervix [facility] Start: 02-23-1989 Screening for malign ant neoplasm of cervix Pap smear [facility] Start: 02-23-1987 DTaP/Tdap/Td vaccine (1 - Tdap) DTaP/Tdap/Td vaccine (1 - Tdap) [facility] Start: 02-23-1986 Hepatitis C screening Hepatitis C sc reen [facility] Start: 02-23-1983 HIV screening HIV screen [facility] [employer] Start: 1980 Depression Screen Depression Screen [facility] [employer] Start: 1968 COVID-19 Vaccine (#1) COVID-19 Vacci ne (#1) [facility] End: 07-04-2022 Basic Metabolic Panel w/ Reflex to MG Basic Metabolic Panel w/ Reflex to MG Lab Routine Daily for 3 Days starting 07/02/2022 until 07/04/2022, 2 completed [facility] Phone: Comment on above: Daily for 3 Days sta rting 07/02/2022 until 07/04/2022, 2 completed End: 07-04-2022 CBC panel - Blood by Automated count CBC Lab Routine Daily for 3 Days starting 07/02/2022 until 07/04/2022, 2 completed [facility] Phone: Comment on above: Daily for 3 Days sta rting 07/02/2022 until 07/04/2022, 2 completed Comprehensive metabo lic 2000 panel - Serum or Plasma [facility] Comprehensive metabo lic 2000 panel - Serum or Plasma [facility] IgA [Mass/volume] in Serum or Plasma [facility] IgG [Mass/volume] in Serum or Plasma [facility] IgM [Mass/volume] in Serum or Plasma [facility] Oxygen therapy [[facility] Data Set] Initiate Oxygen Therapy Protocol Respiratory Care Routine Daily until discontinued starting 07/01/2022 [facility] [employer] Phone: Comment on above: Daily until disconti nued starting 07/01/2022 Spirometry panel Incentive tonja metry Respiratory Care Routine Every 2hr while awake until discontinued starting 07/01/2022 [facility] [employer] Phone: Comment on above: Every 2hr while awak e until discontinued starting 07/01/2022 [facility] Immunizations Immunization Date Immunization Notes Care Provider Fa cilirowdy 03-16-2016 influenza virus vaccine, unspecified formulation TOLL BRIDGE OPERATOR Elizabeth Christiano Work Phone: [facility] 03-16-2016 influenza, injectabl e, quadrivalent, preservative free Sindy Davila Other [facility] [employer] Other Payers Date Payer Category Payer Medicaid [id number] 2022 Self-pay [id number] 2014 Private Health Insurance [id number] 1968 Unknown [id number] [id number]. 182 1968 Unknown [id number] [id number]. 182 1968 Unknown [id number] [id number]. 356 1968 Unknown [id number] 2.16.840.1.038837.3.579.2. 1067 1968 Unknown [id number] 2.16.840.1.969816.3.579.2. 1067 1968 Unknown [id number] 2.16.840.1.162235.3.579.2. 1067 1968 Unknown [id number] 2.16.840.1.029211.3.579.2. 1067 1968 Unknown [id number] 2.16.840.1.563731.3.579.2. 1067 1968 Unknown [id number] 2.16.840.1.666362.3.579.2. 1067 1968 Unknown [id number] 2.16.840.1.727117.3.579.2. 1068 Medicare Medicare [id number] Medicare [id number] Medicare [place] [employer] Dual Adv JRG [id number] Private Health Insurance [employer] [facility] PFFS 1 [id number] Unknown [facility] E DUAL COMPLETE Unknown [id number]. 531 Social History Date Type Detail Facility Start: 06-03-2017 End: 09-21-2022 Tobacco smoking status NHIS Never smoked tobacco (finding) [facility] Start: 1970 Sex Assigned At Female [facility] Start: 06-24-2022 Tobacco use and exposure Smokeless tobacco non-user [facility] Phone: Start: 06-24-2022 End: 07-02-2022 Alcohol intake Current drinker of alcohol (finding) [facility] Phone: Start: 06-24-2022 Alcohol Comment occasional [facility] [employer] Phone: Start: 1970 Sex Assigned At Not on file B ON [facility] Phone: Start: 06-14-2022 End: 06-24-2022 Exposure to SARS-CoV-2 (event) Not sure [facility] Phone: Sex Assigned At Sex Assigned At [facility] th [place] [employer] Other Medical Equipment Procedure Code Equipment Code Equipment Origin al Text Equipment Identifier Dates Cement Bioprep S t - [id number] Start: 07-01-2022 Stem Tib [id number] [id number] Knee Tot Stbl Joey Roberta [employer] - [id number] , [id number] FDA Start: 07-01-2022 Clinical Notes [...] of both lower extremities (ICD-10 - I87.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) [employer] Other 10-04-2023 Evaluation note* Encounter Date Diagnosis [...] Bilateral lower extremity edema (ICD-10 - R60.0) [facility] Other 04-24-2023 Consult note Author Zoey Ramirez [facility] August 16, 2022 3:19pm Note Date/Time August 16, 2022 2:2 0pm [place] [address] Hem/Onc Consult Note - OP Signed Patient: Geeta Shelton MR#: [id number] : 1970 Acct:[id number] Age/Sex: 52 / F Type: REG RCR Copies to: Elizabeth Alvarado APRN,GAS MAIN FITTER Lorrie Baig DO~ HPI Date/Time of Service: Date of Service: 08/16/2022 Time of Service: 14:19 Referring Provider/PCP: Referring Provider: Lorrie Baig DO PCP: Elizabeth Alvarado APRN, SENIOR DATA SCIENTIST-C - History of Present Illness Reason for [...] blood disorder. No history of thrombosis. 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 This may bepostsurgical. MI/MI bone 3 phase IMPRESSION: Intense uptake of [...] for coordination of care (as documented) and nldg-[id number]-[id number] counseling of patient and/or family. Dictated By: Zoey Ramirez APRN DD/ 1419 Signed By: <Electronically signed by RHEA Ramirez> 08/16/22 4710 [facility] Work Phone: 1(756) 267-318403-11-2023 History of Present illness Narrative* Sosa Poon [...] after removal as ordered. Patient has [facility] set up. Knee immobilizer sent with pt, [...] Med Surg Daily Treatment Note Facility/Department: [address] Room: W268/W268-01 NAME: Geeta Shelton : [...] BLOCK-DEMETRIA performed by Acosta Schafer MD at [facility] [place] Chart Reviewed: Yes Restrictions: Restrictions/Precautions: Fall [...] Recommendations: Continue to assess pending progress Goals Final Cigar And Box Examiner Goals Fci Goal 1: Bed mobility with indep Final Cigar And Box Examiner Goal 2: Functional transfes with indep Final Cigar And Box Examiner Goal 3: Amb 50ft with 2ww and indep Final Cigar And Box Examiner Goal 4: 4 steps with handrail and SBA Fci Goal 5: indep with HEP to improve [...] Med Surg Daily Treatment Note Facility/Department: [address] Room: [place] [address] NAME: Geeta Shelton : 1970 (52 y.o.) [...] Recommendations: Continue to assess pending progress Goals Final Cigar And Box Examiner Goals Fci Goal 1: Bed mobility with indep Fci Goal 2: Functional transfes with indep Final Cigar And Box Examiner Goal 3: Amb 50ft with 2ww and indep Fci Goal 4: 4 steps with handrail and SBA Final Cigar And Box Examiner Goal 5: indep with HEP to improve LE strength and ROM Patient Goals Patient Goals : to go home PLAN General Plan: 2 times a day 7 days a week Safety Devices Type of Devices: All fall risk precautions in place, Call light within reach, Left in bed, Bed alarm in place, Nurse notified [facility] (6 CLICK) BASIC MOBILITY AM-PAC [...] to accomplish the task * Arya Coronado, TOLL BRIDGE OPERATOR - GAS MAIN FITTER - 07/02/2022 9:49 AM EST Progress Note [...] pack per his order. * ChrissSuresh Aparicio, FOOTWEAR STITCHER - 07/01/2022 5:51 PM EST Images from [...] puffs by inhalation with spacer [] Ipratropium [place] 0.02% unit dose by aerosol Ipratropium [place] MDI 2 puffs by inhalation with spacer [] Duoneb (Ipratropium + Albuterol) unit dose by aerosol Ipratropium MDI + Albuterol MDI 2 puffs byinhalation w/spacer MDI to Aerosol [] Albuterol Sulfate MDI Albuterol Sulfate 0.083% unit dose by aerosol [] Levalbuterol MDI 2 puffs by inhalation Levalbuterol 1.25 mg unit dose by aerosol [] Ipratropium [place] MDI by inhalation Ipratropium [place] 0.02% unit dose by aerosol [] Combivent (Ipratropium + Albuterol) MDI by inhalation Duoneb (Ipratropium + Albuterol) unit doseby aerosol Treatment Assessment [Frequency/Schedule]: Change frequency to: NO CHANGE per Protocol, P&T, [facility] Points 0 1 2 3 4 [...] (52 y.o.) CODE STATUS: Full Code Room: [place] [address] Date of Service: 07/01/2022 Patient Diagnosis(es): Loosening [...] Ambulation Assistance: Independent Transfer Assistance: Independent Active Lockstitch Sleeve Setter: Yes Mode of Transportation: Car OBJECTIVE: Orientation [...] How much help for eating meals?: None AM-[facility] Inpatient Daily Activity Raw Score: 19 AM-[facility] Inpatient ADL T-Scale Score : [...] Physical Therapy Med Surg Initial Assessment Facility/Department: [address] ORTHO TELE Room: [facility] [address] NAME: Geeta Shelton : 1970 (52 y.o.) [...] Ambulation Assistance: Independent Transfer Assistance: Independent Active Lockstitch Sleeve Setter: Yes Mode of Transportation: Car OBJECTIVE: Vision [...] Goals: Patient Goals : to go home Final Cigar And Box Examiner Goals Fci Goal 1: Bed mobility with indep Fci Goal 2: Functional transfes with indep Final Cigar And Box Examiner Goal 3: Amb 50ft with 2ww and indep Final Cigar And Box Examiner Goal 4: 4 steps with handrail and SBA Fci Goal 5: indep with HEP to improve LE strength and ROM [facility] (6 CLICK) BASIC MOBILITY AM-PAC [...] accomplish the task [facility] [employer] Work Phone: 1(900) 220-343403-09-2023 History of Present illness Narrative* History of [...] she will most likely do this at [facility] in [place]. * Physical exam * General: No acute [...] see dictated x-ray report * Procedure * Bryson removed Steri-Strips placed without complication * Assessment [...] grammatical areas may persist related to the [employer] software * Merrill Alejandro PA-C * . [facility] Work Phone: [phone]) 562-350303-07-2023 Hospital Discharge instructions* Discharge Instructions* Arya Coronado [...] remove dressing and start using instructions above Bryson will be removed on post-operative day 14 [...] Hospital Unit/Room#: W268/W268-01 Discharging Unit Phone Number: [phone] Emergency Contact: Extended Emergency Contact Information Primary Emergency Contact: kena travis Relation: Other Past Surgical History: Past Surgical History: Procedure Laterality Date JOINT REPLACEMENT Left knee PARTIAL KNEE ARTHROPLASTY Right REVISION TOTAL KNEE ARTHROPLASTY Right 07/01/2022 RIGHT KNEE RIGHT TOTAL KNEE REVISION INSTRUMENTATION ANTONELLA FEMORAL & SCIATIC BLOCK-DEMETRIA performed by Acosta Schafer MD at [facility] [place] Immunization History: There is no immunization [...] Assisted Dressing Assisted Toileting Independent Feeding Independent Rod Buster Helper Independent Med Delivery whole Wound Care Documentation [...] applicable) Name: Address: Dialysis Schedule: Phone: Fax: Chemical Processing Technician/Barrel Raiser signature: {Esignature:[id number]} PHYSICIAN SECTION Prognosis: {Prognosis:3650536946} Condition at Discharge: { Patient Condition:585104205} Rehab Potential (if transferring to Rehab): {Prognosis:1974985401} Recommended Labs or Other Treatments After Discharge: Physician Certification: I certify the above information and transfer of Geeta Shelton is necessary for the continuing treatment of the diagnosis listed and that she requires [facility]} for {GREATER/LESS:622279359} 30 days. Update Admission H&P: {CHP DME Changes in HandP:079413069} PHYSICIAN SIGNATURE: {Esignature:753841613} * Attachments The following attachments cannot be sent through Care Everywhere. * Total Knee Replacement Surgery: General Info (Paraguayan) * Wound: VAC (Vacuum-Assisted Closure) (Paraguayan) documented in [facility] encounter[facility] Work Phone: 1(226) 391-388403-02-2023 History of Present illness Narrative* Sindy Pelaez RN - 06/24/2022 11:10 AM EST Yellow PAT and Dynahex instruction sheet reviewed with patient, who verbalized understanding. documented in this encounterBRIDGEWATER [facility] Work Phone: evaluation noteNo assessment information available [facility] Work Phone: Evaluation note* Diagnosis Status post revision of total knee replacement, right- Primary Status post revision of total replacement of right knee Acute postoperative pain Other acute postoperative pain documented in this encounter [facility] Work Phone: evaluation note* Diagnosis Onset Date Resolution Status MGUS (monoclonal gammopathy of unknown significance) acute Microcytosis acute Peripheral neuropathy acute [facility] Work Phone: Evaluation note* Diagnosis Onset Date Resolution Status MGUS (monoclonal gammopathy of unknown significance) acute Microcytosis acute Peripheral neuropathy acute MGUS (monoclonal gammopathy of unknown significance) acute [facility] Work Phone: History general Narrative - Reported* Type Description Date Medical History asthma Medical History snoring Medical History Allergic Rhinitis Medical History Essential Hypertension Surgical History Revise/Replace left knee joint Surgical History Varicose Veins 2009 Surgical History Right ankle surgery Hospitalization History See above [facility] Other History of Present illness Narrative* New [...] grammatical areas may persist related to the [employer] software * Acosta Schafer MD * Senior Attending Physician * [facility] [place] * . 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 -[place] [facility] Work Phone: History of [...] will be re-assessed and goals updated. [facility] Work Phone: History of Present illness Narrative* [...] will be re-assessed and goals updated. [facility] Work Phone: History of Present illness Narrative* [...] MD * Senior Attending Physician * [facility] [place] * . -[facility] Work Phone: History of [...] grammatical areas may persist related to the [employer] software * Merrill Alejandro PA-C * . -[facility] Work Phone: Progress note Author Krzysztof Salazar [facility] September 21, 2022 9:52am Note Date/Time September 21, 2022 9:49a m [facility] [place] [address] Hem/Onc Follow Up Note - OP Signed Patient: Geeta Shelton MR#: [id number] : 1970 Acct:[id number] Age/Sex: 52 / F Type: REG RCR [...] of gait ataxia and cane usage in thesdst. Patient is ambulatory with no use of cane today; gait is slow but normal/steady. The patient is alert and oriented x3 - Time with Patient Coordination of Care & Counseling Time: Greater than 50% of time spent with patient was for coordination of care (as documented) and reai-ia-tlsv counseling of patient and/or family. [facility] - Medical History Medical History: Medical [...] by Krzysztof Salazar II, > 09/21/22 0952 [facility] Work Phone: Reason for visit Narrative* Initial Evaluation, Pre-Op . * [facility] Work Phone: Reason for visit Narrative* Initial Evaluation, Pre-Op . * Referred by: Dr. Acosta Schafer 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 [place] of attending provider for home health Dr. [...] content) DATE CREATED AUTHOR 02/01/2019 Rober Renteriaus [facility] ical Center DATE CREATED AUTHOR AUTHOR'S ORGANIZ ATION 07/04/2022 [facility] DATE CREATED AUTHOR AUTHOR'S ORGANIZ ATION 07/08/2022 [facility] ical Center DATE CREATED AUTHOR AUTHOR'S ORGANIZ ATION 12/30/2022 [facility] DATE CREATED AUTHOR AUTHOR'S ORGANIZ ATION 01/09/2023 [facility] DATE CREATED AUTHOR AUTHOR'S ORGANIZ ATION 06/12/2024 [facility] DATE CREATED AUTHOR AUTHOR'S ORGANIZ ATION 10/04/2024 [facility] y[facility] Care Teams (unrecognized sec tion and content) Team Status: Active Member Role Status Dates Elizabeth Alvarado APRN SENIOR DATA SCIENTIST-C Primary Care Provide r Active Team Status: Inactive Member Role Status Dates Elizabeth Alvarado APRN SENIOR DATA SCIENTIST-René Primar y Care Provider, Attending Provider Active Team Status: Inactive Member Role Status Dates Elizabeth Alvarado APRN SENIOR DATA SCIENTIST-C Primary Care Provide r Active Lorrie Baig DO Attending Provider Active Team Status: Inactive Member Role Status Dates Elizabeth Alvarado APRN SENIOR DATA SCIENTIST-C Primary Care Provide r Active Tyler Villeda PA-C Attending Provider Active Team Status: Inactive Member Role Status Dates Elizabeth Alvarado APRN SENIOR DATA SCIENTIST-C Attending Provider A ctive Services [facility] Primary Care Provider Active City Recorder Relationship Specialty Start Date End Date Elizabeth Alvarado PCP - General 07/01/22 Team Status: Active Member Role Status Dates Elizabeth Alvarado APRN SENIOR DATA SCIENTIST-C Primary Care Provide r Active Zoey Ramirez APRN Attending Provider Active Lorrie Baig DO Referring Provider Active Team Status: Inactive Member Role Status Dates Elizabeth Alvarado APRN SENIOR DATA SCIENTIST-C Primary Care Provide r Active Acosta Schafer Attending Provider Active Team Status: Inactive Member Role Status Dates Elizabeth Alvarado APRN SENIOR DATA SCIENTIST-C Primary Care Provide r Active Sindy Davila SENIOR DATA SCIENTIST-C Attending Provider Active Team Status: Inactive Member Role Status Dates Elizabeth Alvarado APRN SENIOR DATA SCIENTIST-C Attending Provider A ctive Start: August 24, 2023 End: August 24, 2023 Team Status: Active Member Role Status Dates PHYSICIAN NO FAMILY Primary Care Provider Active Team Status: Inactive Member Role Status Dates Elizabeth Alvarado APRN SENIOR DATA SCIENTIST-C Attending Provider A ctive Start: September 07, 2023 End: September 07, 2023 PHYSICIAN NO FAMILY Primary Care Provider Active Start: September 07, 2023 End: September 07, 2023 Team Status: Active Member Role Status Dates Elizabeth Alvarado APRN SENIOR DATA SCIENTIST-C Primary Care Provide r Active Start: September 30, 2023 Zoey Ramirez APRN Active Start: September 30, 2023 Lorrie Baig DO Referring Provider Active Sta rt: September 30, 2023 Krzysztof Salazar II, DO Attending Provider Active Start: September 30, 2023 Team Status: Inactive Member Role Status Dates Elizabeth Alvarado APRN SENIOR DATA SCIENTIST-C Primary Care Provide r Active Start: September [...] FEMORAL & SCIATIC BLOCK Acosta Schafer MD [address] [place] [address] [facility] [id number] [place] [address] Referral ID Status Reason Start Date Expiration Date Visits Re quested Visits Authorized [id number] 1 1 Ordered Prescriptions (unrec ognized section [...] at 250 mL/hr, Administer over 60 Minutes, COMPENSATION ASSOCIATE TO O.R., On Renee 07/01/22 at [...] (NoRateChange - Provider: Yang Mccollum APRN - SALES AMBASSADOR)1311 (Anesthesia Volume Adjustment - Provider: Yang Mccollum APRN - TOMMIE)1324 (Anesthesia Volume Adjustment - Provider: Yang Mccollum APRN - SALES AMBASSADOR) lactated ringers IV soln infusion IntraVENous, at [...] BE BASED ON THE PRIMARY CLINICAL RECORDS. [employer] [facility]. provides no warranty or guarantee of the accuracy or completeness of information in this document.
== END 2025-01-29 10:05 | disposition home or self-care (01) ==
LOC: WC 10:04
PROVIDERS: Visit Provider Physician Assistant
DX: E11.621 Type 2 diabetes mellitus with foot ulcer (principal); L97.411 Non-pressure chronic ulcer of right heel and midfoot limited to breakdown of skin
CPT/HCPCS: 29445

== ENCOUNTER 2025-01-31 15:03 | Outpatient (OUT) | payer MEDICARE, MEDICAID, SELFPAY ==
--- OUTSIDE RECORDS SUMMARY | 2025-01-31 15:11 | XMS_ITS | CCD ---
Author Organization [facility] Care Team Providers Care Nurse Executive Name Role Phone RHEA Alvarado Attending Provider [facility], Services Primary Care Provider RHEA Alvarado Primary Care Provide r CARLI Villeda Attending Provider [phone] RHEA Alvarado Primary Care Provide r CARLI Villeda Attending Provider Pending Provider Unavailable Unavailable Unavailable Unavailable Unavailable Primary Care Provider Unavailabl e Elizabeth Alvarado Primary Care Provider Unava ilable ACOSTA SCHAFER Admitting Unavailable ACOSTA SCHAFER Attending Unavailable ELIZABETH LAVARADO Primary Care Unavailable STAN CISSE Consulting Unavailable [...] source) Ibuprofen Drug Allergy 4 Unknown Reaction [facility] Penicillins (antibiotic) (2 sources) Penicillin Drug Allergy 4 hives [facility] (20 sources) Penicillins; Translations: [Penicillins] Allergy to substance 8 Anaphylaxis [facility] (6 sources) Ibuprofen; Translations: [ibuprofen] Drug Allergy 3 Unknown Reaction [facility] (3 sources) Penicillin V Drug Allergy 3 hives [facility] (1 source) Penicillin Drug Allergy 4 [facility] Repository Medications Current Medications Medication Drug Class(es) Dates Sig (Normalized) Sig (Original) acetaminophen 325 mg oral tablet (2 sources) Start: 07-01-2022 acetaminophen (TYLENOL) tablet 650 mg Start: 07-01-2022 End: 07-01-2022 acetaminophen (TYLENOL) tabl et 1,000 mg [id number] 200 actuat albuterol 0.09 mg/actuat metered dose [...] Active docusate sodium 50 mg / sennosides, chcf 8.6 mg oral tablet (2 sources) Start: [...] disintegrating tablet 4 mg polyethylene glycol [id number] [id number] mg powder for oral solution (1 source) [...] 12-03-2021 take 1 capsule by mo [facility] once daily venlafaxine (EFFEXOR XR) [...] DAILY, First dose on [facility] 07/01/22 at 2000, Until Discontinued Substituted for [...] Range Facility Outside Recordson 06-11-2024 Outside Records [id number] [facility] Rad - Other Radiology Report on 06-11-2024 Rad - Other Radiology Report [id number]#[id number] [facility] Rad - Other Radiology Report [id number]#[id number] [facility] Alanine aminotransferase [En zymatic activity/volume] in Serum or PlasmaOrdered By: Krzysztof Salazar on 09-20-2023 ALT [Catalytic activity/Vol] 33 U/L 7-52 [facility] Albumin [Mass/volume] in Ser um or PlasmaOrdered By: Krzysztof Salazar on 09-20-2023 Albumin [Mass/Vol] 3.8 g/dL 2.9-4.4 [facility] Albumin [Mass/volume] in Ser um or Plasma by Bromocresol green (BCG) dye binding methoOrdered By: Krzysztof Salazar on 09-20-2023 Albumin BCG dye [Mass/Vol] 4.2 g/dL 3.5-5.7 [facility] Alkaline phosphatase [Enzyma tic activity/volume] in Serum or PlasmaOrdered By: Krzysztof Salazar on 09-20-2023 ALP [Catalytic activity/Vol] 79 U/L 34-104 [facility] Aspartate aminotransferase [ Enzymatic activity/volume] in Serum or PlasmaOrdered By: Krzysztof Salazar on 09-20-2023 AST [Catalytic activity/Vol] 30 U/L 13-39 [facility] Basophils Auto (Bld) [#/Vol] Ordered By: Krzysztof Salazar on 09-20-2023 Basophils (Bld) [#/Vol] 0.0 10*3/uL 0.0-0.2 [facility] Basophils/100 WBC Auto (Bld) Ordered By: Krzysztof Salazar on 09-20-2023 Basophils/100 WBC (Bld) 0.5 % . [facility] Bilirubin.total [Mass/volume ] in Serum or PlasmaOrdered By: Krzysztof Salazar on 09-20-2023 Bilirubin [Mass/Vol] 0.6 mg/dL 0.3-1.0 [facility] Calcium [Mass/volume] in Ser um or PlasmaOrdered By: Krzysztof Salazar on 09-20-2023 Calcium [Mass/Vol] 9.7 mg/dL 8.6-10.3 [facility] Carbon dioxide, total [Moles /volume] in Serum or PlasmaOrdered By: Krzysztof Salazar on 09-20-2023 CO2 [Moles/Vol] 32.4 mmol/L 21.0-31.0 [facility] Chloride [Moles/volume] in S hugo or PlasmaOrdered By: Krzysztof Salazar on 09-20-2023 Chloride [Moles/Vol] 97 mmol/L 98-107 [facility] Creatinine [Mass/volume] in Serum or PlasmaOrdered By: Krzysztof Salazar on 09-20-2023 Creatinine [Mass/Vol] 0.60 mg/dL 0.60-1.20 [facility] Eosinophils Auto (Bld) [#/Vo l]Ordered By: Krzysztof Salazar on 09-20-2023 Eosinophils (Bld) [#/Vol] 0.2 10*3/uL 0.0-0.45 [facility] Eosinophils/100 WBC Auto (Bl d)Ordered By: Krzysztof Salazar on 09-20-2023 Eosinophils/100 WBC (Bld) 2.6 % . [facility] Erythrocyte distribution wid th Auto (RBC) [Ratio]Ordered By: Krzysztof Salazar on 09-20-2023 Erythrocyte distribution width (RBC) [Ratio] 16.7 % 11.9-15.3 [facility] Ferritin [Mass/volume] in Se rum or PlasmaOrdered By: Krzysztof Salazar on 09-20-2023 Ferritin [Mass/Vol] 92.7 ng/mL 11.0-306.8 [facility] Globulin Calc (S) [Mass/Vol] Ordered By: Krzysztof Salazar on 09-20-2023 Globulin (S) [Mass/Vol] 3.5 g/dL [facility] Glucose [Mass/volume] in Ser um or PlasmaOrdered By: Krzysztof Salazar on 09-20-2023 Glucose [Mass/Vol] 123 mg/dL 70-100 [facility] Comment on above: ADA recommended refe rence rangeRandom Glucose Reference Range is dependent on time and content of last meal. Glucose of more than 200 mg/dL in a nonstressed, ambulatory subject supports the diagnosis of Diabetes Mellitus. Hematocrit Auto (Bld) [Volum e fraction]Ordered By: Krzysztof Salazar on 09-20-2023 Hematocrit (Bld) [Volume fraction] 38.3 % 34.0-46.4 [facility] Hemoglobin [Mass/volume] in BloodOrdered By: Krzysztof Salazar on 09-20-2023 Hemoglobin (Bld) [Mass/Vol] 12.5 g/dL 11.8-15.4 [facility] IgA [Mass/volume] in Serum o r PlasmaOrdered By: Krzysztof Salazar on 09-20-2023 IgA [Mass/Vol] 409 mg/dL 87-352 [facility] IgG [Mass/volume] in Serum o r PlasmaOrdered By: Krzysztof Salazar on 09-20-2023 IgG [Mass/Vol] 1704 mg/dL 586-1602 [facility] IgM [Mass/volume] in Serum o r PlasmaOrdered By: Krzysztof Salazar on 09-20-2023 IgM [Mass/Vol] 122 mg/dL 26-217 [facility] Comment on above: Performed at: [address] [id number] Director: Jeyson Duncan PhD, Phone: [phone] Immunoglobulin light chains. kappa.free [Mass/volume] in SerumOrdered By: Krzysztof Salazar on 09-20-2023 Immunoglobulin light chains.kappa.free (S) [Mass/Vol] 30.9 mg/L 3.3-19.4 [facility] Immunoglobulin light chains. kappa.free/Immunoglobulin light chains.lambda.free [MassOrdered By: Krzysztof Salazar on 09-20-2023 Immunoglobulin light chains.kappa.free/Immuno globulin light chains.lambda.free (S) [Mass ratio] 1.17 0.26-1.65 [facility] Comment on above: Performed at: [address] [id number] Director: Jeyson Duncan PhD, Phone: [phone] Immunoglobulin light chains. lambda.free [Mass/volume] in Serum or PlasmaOrdered By: Krzysztof Salazar on 09-20-2023 Immunoglobulin light chains.lambda.free [Mass/Vol] 26.4 mg/L 5.7-26.3 [facility] Iron [Mass/volume] in Serum or PlasmaOrdered By: Krzysztof Salazar on 09-20-2023 Iron [Mass/Vol] 74 ug/dL 50-212 [facility] Iron binding capacity [Mass/ volume] in Serum or PlasmaOrdered By: Krzysztof Salazar on 09-20-2023 Iron binding capacity [Mass/Vol] 344 ug/dL 255-450 [facility] Iron saturation [Mass Fracti on] in Serum or PlasmaOrdered By: Krzysztof Salazar on 09-20-2023 Iron saturation [Mass fraction] 21.5 % 20-50 [facility] Leukocytes [#/volume] correc silverio for nucleated erythrocytes in Blood by Automated counOrdered By: Krzysztof Salazar on 09-20-2023 WBC corrected for nucl RBC Auto (Bld) [#/Vol] 8.5 10*3/uL 3.8-11.6 [facility] Lymphocytes Auto (Bld) [#/Vo l]Ordered By: Krzysztof Salazar on 09-20-2023 Lymphocytes (Bld) [#/Vol] 2.1 10*3/uL 1.00-4.8 [facility] Lymphocytes/100 WBC Auto (Bl d)Ordered By: Krzysztof Salazar on 09-20-2023 Lymphocytes/100 WBC (Bld) 24.7 % . [facility] MCH Auto (RBC) [Entitic mass ]Ordered By: Krzysztof Salazar on 09-20-2023 MCH (RBC) [Entitic mass] 25.8 pg 24.7-34.3 [facility] MCHC Auto (RBC) [Mass/Vol]Or dered By: Krzysztof Salazar on 09-20-2023 MCHC (RBC) [Mass/Vol] 32.7 g/dL 32.0-35.0 [facility] MCV Auto (RBC) [Entitic vol] Ordered By: Krzysztof Salazar on 09-20-2023 MCV (RBC) [Entitic vol] 78.7 fL 80-100 [facility] Monocytes Auto (Bld) [#/Vol] Ordered By: Krzysztof Salazar on 09-20-2023 Monocytes (Bld) [#/Vol] 0.7 10*3/uL 0.0-0.8 [facility] Monocytes/100 WBC Auto (Bld) Ordered By: Krzysztof Salazar on 09-20-2023 Monocytes/100 WBC (Bld) 7.9 % . [facility] Neutrophils Auto (Bld) [#/Vo l]Ordered By: Krzysztof Salazar on 09-20-2023 Neutrophils (Bld) [#/Vol] 5.5 10*3/uL 1.8-7.7 [facility] Neutrophils/100 WBC Auto (Bl d)Ordered By: Krzysztof Salazar on 09-20-2023 Neutrophils/100 WBC (Bld) 64.3 % . [facility] No Panel InformationOrdered By: Krzysztof Salazar on 09-20-2023 Estimated GFR (CKD-EPI) > 60.0 mL/Min [facility] Creatinine Clearance (Chem 143.32 [facility] Protein Electrophoresis M-Antwan Not observed g/dL Not Observed [facility] Protein Electrophoresis Note See comment . [facility] Comment on above: Protein electrophore sis scan will follow via computer,mail, or jigger operator delivery. Serum Immunofixation See comment . [facility] Comment on above: No monoclonality det ected. Nucleated erythrocytes [Pres ence] in Blood by Automated countOrdered By: Krzysztof Salazar on 09-20-2023 Nucleated RBC Auto Ql (Bld) 0.1 /100{WBC} 0-0.5 [facility] Platelet mean volume Auto (B ld) [Entitic vol]Ordered By: Krzysztof Salazar on 09-20-2023 Platelet mean volume (Bld) [Entitic vol] 8.8 fL 6.3-10.7 [facility] Platelets Auto (Bld) [#/Vol] Ordered By: Krzysztof Salazar on 09-20-2023 Platelets (Bld) [#/Vol] 271 10*3/uL 150-450 [facility] Potassium [Moles/volume] in Serum or PlasmaOrdered By: Krzysztof Salazar on 09-20-2023 Potassium [Moles/Vol] 4.4 mmol/L 3.5-5.1 [facility] Protein [Mass/volume] in Ser um or PlasmaOrdered By: Krzysztof Salazar on 09-20-2023 Protein [Mass/Vol] 7.7 g/dL 6.4-8.9 [facility] Protein [Mass/Vol] 7.8 g/dL 6.0-8.5 [facility] RBC Auto (Bld) [#/Vol]Ordere d By: Krzysztof Salazar on 09-20-2023 RBC (Bld) [#/Vol] 4.86 10*6/uL 3.60-5.00 [facility] Serum globulin measurement ( mass/volume)Ordered By: Krzysztof Salazar on 09-20-2023 Globulin (S) [Mass/Vol] 4.0 g/dL 2.2-3.9 [facility] Serum or plasma albumin/glob ulin mass ratioOrdered By: Krzysztof Salazar on 09-20-2023 Albumin/Globulin [Mass ratio] 1.2 {ratio} [facility] Albumin/Globulin [Mass ratio] 1.0 {ratio} 0.7-1.7 [facility] Serum or plasma alpha 1 glob ulin measurement by electrophoresis (mass/volume)Ordered By: Krzysztof Salazar on 09-20-2023 Alpha 1 globulin Elph [Mass/Vol] 0.3 g/dL 0.0-0.4 [facility] Serum or plasma alpha 2 glob ulin measurement by electrophoresis (mass/volume)Ordered By: Krzysztof Salazar on 09-20-2023 Alpha 2 globulin Elph [Mass/Vol] 0.8 g/dL 0.4-1.0 [facility] Serum or plasma anion gap de terminationOrdered By: Krzysztof Salazar on 09-20-2023 Anion gap [Moles/Vol] 11.0 mmol/L 6.0-15.0 [facility] Serum or plasma beta globuli n measurement by electrophoresis (mass/volume)Ordered By: Krzysztof Salazar on 09-20-2023 Beta globulin Elph [Mass/Vol] 1.2 g/dL 0.7-1.3 [facility] Serum or plasma gamma globul in measurement by electrophoresis (mass/volume)Ordered By: Krzysztof Salazar on 09-20-2023 Gamma globulin Elph [Mass/Vol] 1.8 g/dL 0.4-1.8 [facility] Sodium [Moles/volume] in Ser um or PlasmaOrdered By: Krzysztof Salazar on 09-20-2023 Sodium [Moles/Vol] 136 mmol/L 136-145 [facility] Transferrin [Mass/volume] in Serum or PlasmaOrdered By: Krzysztof Salazar on 09-20-2023 Transferrin [Mass/Vol] 246 mg/dL 203-362 [facility] Urea nitrogen [Mass/volume] in Serum or PlasmaOrdered By: Krzysztof Salazar on 09-20-2023 Urea nitrogen [Mass/Vol] 16 mg/dL 7 [facility] WBC Auto (Bld) [#/Vol]Ordere d By: Krzysztof Salazar on 09-20-2023 WBC (Bld) [#/Vol] 8.5 10*3/uL 3.8-11.6 [facility] Alanine aminotransferase [En zymatic activity/volume] in Serum or PlasmaOrdered By: Elizabeth Alvarado on 08-24-2023 ALT [Catalytic activity/Vol] 28 U/L [facility] Albumin [Mass/volume] in Ser um or Plasma by Bromocresol green (BCG) dye binding methoOrdered By: Elizabeth Alvarado on 08-24-2023 Albumin BCG dye [Mass/Vol] 4.3 g/dL 3.5-5.7 [facility] Alkaline phosphatase [Enzyma tic activity/volume] in Serum or PlasmaOrdered By: Elizabeth Alvarado on 08-24-2023 ALP [Catalytic activity/Vol] 86 U/L 34-104 [facility] Aspartate aminotransferase [ Enzymatic activity/volume] in Serum or PlasmaOrdered By: Elizabeth Avlarado on 08-24-2023 AST [Catalytic activity/Vol] 28 U/L 13-39 [facility] Basophils Auto (Bld) [#/Vol] Ordered By: Elizabeth Alvarado on 08-24-2023 Basophils (Bld) [#/Vol] 0.1 10*3/uL 0.0-0.2 [facility] Basophils/100 WBC Auto (Bld) Ordered By: Elizabeth Alvarado on 08-24-2023 Basophils/100 WBC (Bld) 0.7 % . [facility] Bilirubin.total [Mass/volume ] in Serum or PlasmaOrdered By: Elizabeth Alvarado on 08-24-2023 Bilirubin [Mass/Vol] 0.4 mg/dL 0.3-1.0 [facility] Calcium [Mass/volume] in Ser um or PlasmaOrdered By: Elizabeth Alvarado on 08-24-2023 Calcium [Mass/Vol] 9.4 mg/dL 8.6-10.3 [facility] Carbon dioxide, total [Moles /volume] in Serum or PlasmaOrdered By: Elizabeth Alvarado on 08-24-2023 CO2 [Moles/Vol] 29.2 mmol/L 21.0-31.0 [facility] Chloride [Moles/volume] in S hugo or PlasmaOrdered By: Elizabeth Alvarado on 08-24-2023 Chloride [Moles/Vol] 96 mmol/L 98-107 [facility] Cholesterol [Mass/volume] in Serum or PlasmaOrdered By: Elizabeth Alvarado on 08-24-2023 Cholesterol [Mass/Vol] 160 mg/dL 140-200 [facility] Comment on above: Chol less than 200 m g/dl low riskChol 201-239 mg/dl borderline riskChol 240 mg/dl and greater high risk Cholesterol in LDL Calc [Mas s/Vol]Ordered By: Elizabeth Alvarado on 08-24-2023 Cholesterol in LDL [Mass/Vol] 78 mg/dL 0-100 [facility] Comment on above: LDL ATP III CLASSIFI CATIONLDL less than 100 mg/dL OptimalLDL 100-129 mg/dL Near or above optimalLDL 130-159 mg/dL Borderline highLDL 160-189 mg/dL HighLDL greater than 189 mg/dL Very high Cholesterol in VLDL Calc [Ma ss/Vol]Ordered By: Elizabeth Alvarado on 08-24-2023 Cholesterol in VLDL [Mass/Vol] 22 mg/dL [facility] Creatinine [Mass/volume] in Serum or PlasmaOrdered By: Elizabeth Alvarado on 08-24-2023 Creatinine [Mass/Vol] 0.65 mg/dL 0.60-1.20 [facility] Creatinine [Mass/volume] in UrineOrdered By: Elizabeth Alvarado on 08-24-2023 Creatinine (U) [Mass/Vol] 76.0 mg/dL [facility] Comment on above: No reference range e stablished Eosinophils Auto (Bld) [#/Vo l]Ordered By: Elizabeth Alvarado on 08-24-2023 Eosinophils (Bld) [#/Vol] 0.3 10*3/uL 0.0-0.45 [facility] Eosinophils/100 WBC Auto (Bl d)Ordered By: Elizabeth Alvarado on 08-24-2023 Eosinophils/100 WBC (Bld) 3.3 % . [facility] Erythrocyte distribution wid th Auto (RBC) [Ratio]Ordered By: Elizabeth Alvarado on 08-24-2023 Erythrocyte distribution width (RBC) [Ratio] 15.8 % 11.9-15.3 [facility] Globulin Calc (S) [Mass/Vol] Ordered By: Elizabeth Alvarado on 08-24-2023 Globulin (S) [Mass/Vol] 3.4 g/dL [facility] Glucose [Mass/volume] in Ser um or PlasmaOrdered By: Elizabeth Alvarado on 08-24-2023 Glucose [Mass/Vol] 92 mg/dL 70-100 [facility] Comment on above: ADA recommended refe rence rangeRandom Glucose Reference Range is dependent on time and content of last meal. Glucose of more than 200 mg/dL in a nonstressed, ambulatory subject supports the diagnosis of Diabetes Mellitus. Hematocrit Auto (Bld) [Volum e fraction]Ordered By: Elizabeth Alvarado on 08-24-2023 Hematocrit (Bld) [Volume fraction] 40.6 % 34.0-46.4 [facility] Hemoglobin [Mass/volume] in BloodOrdered By: Elizabeth Alvarado on 08-24-2023 Hemoglobin (Bld) [Mass/Vol] 13.2 g/dL 11.8-15.4 [facility] Leukocytes [#/volume] correc silverio for nucleated erythrocytes in Blood by Automated counOrdered By: Elizabeth Alvarado on 08-24-2023 WBC corrected for nucl RBC Auto (Bld) [#/Vol] 10.2 10*3/uL 3.8-11.6 [facility] Lymphocytes Auto (Bld) [#/Vo l]Ordered By: Elizabeth Alvarado on 08-24-2023 Lymphocytes (Bld) [#/Vol] 2.6 10*3/uL 1.00-4.8 [facility] Lymphocytes/100 WBC Auto (Bl d)Ordered By: Elizabeth Alvarado on 08-24-2023 Lymphocytes/100 WBC (Bld) 25.5 % . [facility] MCH Auto (RBC) [Entitic mass ]Ordered By: Elizabeth Alvarado on 08-24-2023 MCH (RBC) [Entitic mass] 26.1 pg 24.7-34.3 [facility] MCHC Auto (RBC) [Mass/Vol]Or dered By: Elizabeth Alvarado on 08-24-2023 MCHC (RBC) [Mass/Vol] 32.5 g/dL 32.0-35.0 [facility] MCV Auto (RBC) [Entitic vol] Ordered By: Elizabeth Alvarado on 08-24-2023 MCV (RBC) [Entitic vol] 80.3 fL 80-100 [facility] Microalbumin [Mass/volume] i n UrineOrdered By: Elizabeth Alvarado on 08-24-2023 Albumin DL <= 20 mg/L (U) [Mass/Vol] mg/dL 0.0-1.8 [facility] Monocytes Auto (Bld) [#/Vol] Ordered By: Elizabeth Alvarado on 08-24-2023 Monocytes (Bld) [#/Vol] 0.8 10*3/uL 0.0-0.8 [facility] Monocytes/100 WBC Auto (Bld) Ordered By: Elizabeth Alvarado on 08-24-2023 Monocytes/100 WBC (Bld) 8.1 % . [facility] Neutrophils Auto (Bld) [#/Vo l]Ordered By: Elizabeth Alvarado on 08-24-2023 Neutrophils (Bld) [#/Vol] 6.4 10*3/uL 1.8-7.7 [facility] Neutrophils/100 WBC Auto (Bl d)Ordered By: Elizabeth Alvarado on 08-24-2023 Neutrophils/100 WBC (Bld) 62.4 % . [facility] No Panel InformationOrdered By: Elizabeth Alvarado on 08-24-2023 Estimated GFR (CKD-EPI) > 60.0 mL/Min [facility] Creatinine Clearance (Chem N/A [facility] Nucleated erythrocytes [Pres ence] in Blood by Automated countOrdered By: Elizabeth Alvarado on 08-24-2023 Nucleated RBC Auto Ql (Bld) 0.2 /100{WBC} 0-0.5 [facility] Platelet mean volume Auto (B ld) [Entitic vol]Ordered By: Elizabeth Alvarado on 08-24-2023 Platelet mean volume (Bld) [Entitic vol] 9.8 fL 6.3-10.7 [facility] Platelets Auto (Bld) [#/Vol] Ordered By: Elizabeth Alvarado on 08-24-2023 Platelets (Bld) [#/Vol] 283 10*3/uL 150-450 [facility] Potassium [Moles/volume] in Serum or PlasmaOrdered By: Elizabeth Alvarado on 08-24-2023 Potassium [Moles/Vol] 4.3 mmol/L 3.5-5.1 [facility] Protein [Mass/volume] in Ser um or PlasmaOrdered By: Elizabeth Alvarado on 08-24-2023 Protein [Mass/Vol] 7.7 g/dL 6.4-8.9 [facility] RBC Auto (Bld) [#/Vol]Ordere d By: Elizabeth Alvarado on 08-24-2023 RBC (Bld) [#/Vol] 5.06 10*6/uL 3.60-5.00 [facility] Serum or plasma albumin/glob ulin mass ratioOrdered By: Elizabeth Alvarado on 08-24-2023 Albumin/Globulin [Mass ratio] 1.3 {ratio} [facility] Serum or plasma anion gap de terminationOrdered By: Elizabeth Alvarado on 08-24-2023 Anion gap [Moles/Vol] 18.1 mmol/L 6.0-15.0 [facility] Serum or plasma high density lipoprotein (HDL) cholesterol measurementOrdered By: Elizabeth Alvarado on 08-24-2023 Cholesterol in HDL [Mass/Vol] 60 mg/dL 23-92 [facility] Comment on above: HDL CHOL ATP-III CLA SSIFICATION Cardiovascular RiskHDL > or equal to 60 mg/dL LOWHDL < 40 mg/dL HIGH Serum or plasma total choles terol/high density lipoprotein (HDL) cholesterol mass ratOrdered By: Elizabeth Alvarado on 08-24-2023 Cholesterol.total/Choles terol in HDL [Mass ratio] 2.7 {ratio} <5.0 [facility] Sodium [Moles/volume] in Ser um or PlasmaOrdered By: Elizabeth Alvarado on 08-24-2023 Sodium [Moles/Vol] 139 mmol/L 136-145 [facility] Thyrotropin [Units/volume] i n Serum or PlasmaOrdered By: Elizabeth Alvarado on 08-24-2023 TSH Qn 2.40 m[IU]/L 0.45-5.33 [facility] Triglyceride [Mass/volume] i n Serum or PlasmaOrdered By: Elizabeth Alvarado on 08-24-2023 Triglyceride [Mass/Vol] 112 mg/dL 0-149 [facility] Comment on above: TRIG ATP III CLASSIF ICATIONTRIG less than 150 mg/dL NormalTRIG 150-199 mg/dL Borderline highTRIG 200-500 mg/dL High TRIG greater than 500 mg/dL Very highStandard traceable to the Center for Disease Conrtrol and Prevention (CDC) test method. Urea nitrogen [Mass/volume] in Serum or PlasmaOrdered By: Elizabeth Alvarado on 08-24-2023 Urea nitrogen [Mass/Vol] 17 mg/dL 7-25 [facility] Urine microalbumin/creatinin e mass ratioOrdered By: Elizabeth Alvarado on 08-24-2023 Albumin/Creatinine DL <= 20 mg/L (U) [Mass ratio] TNP [facility] Comment on above: Test not performed WBC Auto (Bld) [#/Vol]Ordere d By: Elizabeth Alvarado on 08-24-2023 WBC (Bld) [#/Vol] 10.2 10*3/uL 3.8-11.6 [facility] Established Visit (Orthopaed ic Surgery)on 12-29-2022 [...] grammatical areas may persist related to the [employer] software Merrill Alejandro PA-C . Active Problems [...] Dec 29 2022 1:38PM EST (Author) Normal [facility] Established Visit (Orthopaed ic Surgery)on 09-22-2022 Established [...] grammatical areas may persist related to the [employer] software Acosta Schafer MD Senior Attending Physician [facility] [place] . Active Problems Problems Acute pain of [...] 1 tablet daily Results/Data Xray Knee 3 [id number] 01:48PMAcosta Schafer Test NameResultFlagReference Xray Knee 3 View(Report) FINAL REPORT Interpreted by: ACOSTA SCHAFER BURTON, MD 09/22/22 14:13 Patient Name: GEETA SHELTON STUDY: KNEE; 3 VIEWS; Right; 09/22/2022 1:48 pm INDICATION: pain Z96.659: Status post total knee replacement. ACCESSION NUMBER(S): [id number] ORDERING CLINICIAN: ACOSTA SCHAFER FINDINGS: Right knee [...] Status post total knee replacement. ACCESSION NUMBER(S): [id number] ORDERING CLINICIAN: ACOSTA SCHAFER FINDINGS: Right knee three views. Status post revision total knee replacement components in good position no signs of fracture dislocation or other bony abnormalities Electronically signed by: ACOSTA SCHAFER MD Normal [facility] 09-22-2022 XR Knee 3 Views Normal [facility] Work Phone: Alanine aminotransferase [En zymatic activity/volume] in Serum or PlasmaOrdered By: Zoey Ramirez on 08-17-2022 ALT [Catalytic activity/Vol] 45 U/L 7-52 [facility] Albumin [Mass/volume] in Ser um or PlasmaOrdered By: Zoey Ramirez on 08-17-2022 Albumin [Mass/Vol] 3.7 g/dL 2.9-4.4 [facility] Albumin [Mass/volume] in Ser um or Plasma by Bromocresol green (BCG) dye binding methoOrdered By: Zoey Ramirez on 08-17-2022 Albumin BCG dye [Mass/Vol] 4.1 g/dL 3.5-5.7 [facility] Albumin/Protein.total in 24 hour Urine by ElectrophoresisOrdered By: Zoey Ramirez on 08-17-2022 Albumin Elph (24H U) [Mass fraction] 59.9 % . [facility] Alkaline phosphatase [Enzyma tic activity/volume] in Serum or PlasmaOrdered By: Zoey Ramirez on 08-17-2022 ALP [Catalytic activity/Vol] 90 U/L 34-104 [facility] Aspartate aminotransferase [ Enzymatic activity/volume] in Serum or PlasmaOrdered By: Zoey Ramirez on 08-17-2022 AST [Catalytic activity/Vol] 40 U/L 13-39 [facility] Basophils Auto (Bld) [#/Vol] Ordered By: Zoey Ramirez on 08-17-2022 Basophils (Bld) [#/Vol] 0.1 10*3/uL 0.0-0.2 [facility] Basophils/100 WBC Auto (Bld) Ordered By: Zoey Ramirez on 08-17-2022 Basophils/100 WBC (Bld) 0.9 % . [facility] Bilirubin.total [Mass/volume ] in Serum or PlasmaOrdered By: Zoey Ramirez on 08-17-2022 Bilirubin [Mass/Vol] 0.4 mg/dL 0.3-1.0 [facility] Calcium [Mass/volume] in Ser um or PlasmaOrdered By: Zoey Ramirez on 08-17-2022 Calcium [Mass/Vol] 9.1 mg/dL 8.6-10.3 [facility] Carbon dioxide, total [Moles /volume] in Serum or PlasmaOrdered By: Zoey Ramirez on 08-17-2022 CO2 [Moles/Vol] 27.9 mmol/L 21.0-31.0 [facility] Chloride [Moles/volume] in S hugo or PlasmaOrdered By: Zoey Ramirez on 08-17-2022 Chloride [Moles/Vol] 100 mmol/L 98-107 [facility] Creatinine [Mass/volume] in Serum or PlasmaOrdered By: Zoey Ramirez on 08-17-2022 Creatinine [Mass/Vol] 0.71 mg/dL 0.60-1.20 [facility] Eosinophils Auto (Bld) [#/Vo l]Ordered By: Zoey Ramirez on 08-17-2022 Eosinophils (Bld) [#/Vol] 0.3 10*3/uL 0.0-0.45 [facility] Eosinophils/100 WBC Auto (Bl d)Ordered By: Zoey Ramirez on 08-17-2022 Eosinophils/100 WBC (Bld) 3.1 % . [facility] Erythrocyte distribution wid th Auto (RBC) [Ratio]Ordered By: Zoey Ramirez on 08-17-2022 Erythrocyte distribution width (RBC) [Ratio] 16.5 % 11.9-15.3 [facility] Ferritin [Mass/volume] in Se rum or PlasmaOrdered By: Zoey Ramirez on 08-17-2022 Ferritin [Mass/Vol] 85.3 ng/mL 11.0-306.8 [facility] Folate [Mass/volume] in Seru m or PlasmaOrdered By: Zoey Ramirez on 08-17-2022 Folate [Mass/Vol] 15.1 ng/mL >5.9 [facility] Comment on above: Folate reference ran ge: >5.9 ng/mlThe WHO technical consultation on folate and vitamin [id number] has determined that folate concentrations lessthan 4 ng/ml are considered deficient. Gamma globulin/Protein.total in 24 hour Urine by ElectrophoresisOrdered By: Zoey Ramirez on 08-17-2022 Gamma globulin Elph (24H U) [Mass fraction] 15.3 % . [facility] Globulin Calc (S) [Mass/Vol] Ordered By: Zoey Ramirez on 08-17-2022 Globulin (S) [Mass/Vol] 4.0 g/dL [facility] Glucose [Mass/volume] in Ser um or PlasmaOrdered By: Zoey Ramirez on 08-17-2022 Glucose [Mass/Vol] 142 mg/dL 70-100 [facility] Comment on above: ADA recommended refe rence rangeRandom Glucose Reference Range is dependent on time and content of last meal. Glucose of more than 200 mg/dL in a nonstressed, ambulatory subject supports the diagnosis of Diabetes Mellitus. Hematocrit Auto (Bld) [Volum e fraction]Ordered By: Zoey Ramirez on 08-17-2022 Hematocrit (Bld) [Volume fraction] 41.3 % 34.0-46.4 [facility] Hemoglobin [Mass/volume] in BloodOrdered By: Zoey Ramirez on 08-17-2022 Hemoglobin (Bld) [Mass/Vol] 13.2 g/dL 11.8-15.4 [facility] IgA [Mass/volume] in Serum o r PlasmaOrdered By: Zoey Ramirez on 08-17-2022 IgA [Mass/Vol] 498 mg/dL 87-352 [facility] IgG [Mass/volume] in Serum o r PlasmaOrdered By: Zoey Ramirez on 08-17-2022 IgG [Mass/Vol] 1834 mg/dL 586-1602 [facility] IgM [Mass/volume] in Serum o r PlasmaOrdered By: Zoey Ramirez on 08-17-2022 IgM [Mass/Vol] 124 mg/dL 26-217 [facility] Comment on above: Performed at: [facility] [address] [id number] Director: Jeyson Duncan PhD, Phone: [phone] Immunofixation for UrineOrde red By: Zoey Ramirez on 08-17-2022 Interpretation Immunofixation (U) [Interp] See comment . [facility] Comment on above: No monoclonality det ected.Performed at: [facility] [address] [id number] Director: Jeyson Duncan PhD, Phone: [email or web address] Immunoglobulin light chains. kappa.free [Mass/volume] in SerumOrdered By: Zoey Ramirez on 08-17-2022 Immunoglobulin light chains.kappa.free (S) [Mass/Vol] 47.1 mg/L 3.3-19.4 [facility] Immunoglobulin light chains. kappa.free/Immunoglobulin light chains.lambda.free [MassOrdered By: Zoey Ramirez on 08-17-2022 Immunoglobulin light chains.kappa.free/Immuno globulin light chains.lambda.free (S) [Mass ratio] 1.65 0.26-1.65 [facility] Comment on above: Performed at: - [address] [id number] Director: Jeyson Duncan PhD, Phone: [phone] Immunoglobulin light chains. lambda.free [Mass/volume] in Serum or PlasmaOrdered By: Zoey Ramirez on 08-17-2022 Immunoglobulin light chains.lambda.free [Mass/Vol] 28.6 mg/L 5.7-26.3 [facility] Iron [Mass/volume] in Serum or PlasmaOrdered By: Zoey Ramirez on 08-17-2022 Iron [Mass/Vol] 41 ug/dL 50-212 [facility] Iron binding capacity [Mass/ volume] in Serum or PlasmaOrdered By: Zoey Ramirez on 08-17-2022 Iron binding capacity [Mass/Vol] 344 ug/dL 255-450 [facility] Iron saturation [Mass Fracti on] in Serum or PlasmaOrdered By: Zoey Ramirez on 08-17-2022 Iron saturation [Mass fraction] 11.9 % 20-50 [facility] Leukocytes [#/volume] correc silverio for nucleated erythrocytes in Blood by Automated counOrdered By: Zoey Ramirez on 08-17-2022 WBC corrected for nucl RBC Auto (Bld) [#/Vol] 9.9 10*3/uL 3.8-11.6 [facility] Lymphocytes Auto (Bld) [#/Vo l]Ordered By: Zoey Ramirez on 08-17-2022 Lymphocytes (Bld) [#/Vol] 2.8 10*3/uL 1.00-4.8 [facility] Lymphocytes/100 WBC Auto (Bl d)Ordered By: Zoey Ramirez on 08-17-2022 Lymphocytes/100 WBC (Bld) 28.5 % . [facility] MCH Auto (RBC) [Entitic mass ]Ordered By: Zoey Ramirez on 08-17-2022 MCH (RBC) [Entitic mass] 24.9 pg 24.7-34.3 [facility] MCHC Auto (RBC) [Mass/Vol]Or dered By: Zoey Ramirez on 08-17-2022 MCHC (RBC) [Mass/Vol] 32.0 g/dL 32.0-35.0 [facility] MCV Auto (RBC) [Entitic vol] Ordered By: Zoey Ramirez on 08-17-2022 MCV (RBC) [Entitic vol] 77.8 fL 80-100 [facility] Monocytes Auto (Bld) [#/Vol] Ordered By: Zoey Ramirez on 08-17-2022 Monocytes (Bld) [#/Vol] 0.6 10*3/uL 0.0-0.8 [facility] Monocytes/100 WBC Auto (Bld) Ordered By: Zoey Ramirez on 08-17-2022 Monocytes/100 WBC (Bld) 5.9 % . [facility] Neutrophils Auto (Bld) [#/Vo l]Ordered By: Zoey Ramirez on 08-17-2022 Neutrophils (Bld) [#/Vol] 6.1 10*3/uL 1.8-7.7 [facility] Neutrophils/100 WBC Auto (Bl d)Ordered By: Zoey Ramirez on 08-17-2022 Neutrophils/100 WBC (Bld) 61.6 % . [facility] No Panel InformationOrdered By: Zoey Ramirez on 08-17-2022 Estimated GFR (CKD-EPI) > 60.0 mL/Min [facility] Creatinine Clearance (Chem 122.85 [facility] Protein Electrophoresis M-Antwan Not observed g/dL Not Observed [facility] Protein Electrophoresis Note See comment . [facility] Comment on above: Protein electrophore sis scan will follow via computer,mail, or jigger operator delivery.Performed at: [address] [id number] Director: Jeyson Duncan PhD, Phone: [phone] Serum Immunofixation Comment: . [facility] Comment on above: Presence of monoclon al protein is unclear at this time. Suggestrepeat in 3 to 6 months if clinically indicated. Urine Random Prot Electrophor Note See comment . [facility] Comment on above: Protein electrophore sis scan will follow via computer,mail, or jigger operator delivery.Performed at: [address] [id number] Director: Jeyson Duncan PhD, Phone: [phone] Nucleated erythrocytes [Pres ence] in Blood by Automated countOrdered By: Zoey Ramirez on 08-17-2022 Nucleated RBC Auto Ql (Bld) 0.1 /100{WBC} 0-0.5 [facility] Platelet mean volume Auto (B ld) [Entitic vol]Ordered By: Zoey Ramirez on 08-17-2022 Platelet mean volume (Bld) [Entitic vol] 8.5 fL 6.3-10.7 [facility] Platelets Auto (Bld) [#/Vol] Ordered By: Zoey Ramirez on 08-17-2022 Platelets (Bld) [#/Vol] 345 10*3/uL 150-450 [facility] Potassium [Moles/volume] in Serum or PlasmaOrdered By: Zoey Ramirez on 08-17-2022 Potassium [Moles/Vol] 4.7 mmol/L 3.5-5.1 [facility] Protein [Mass/volume] in Ser um or PlasmaOrdered By: Zoey Ramirez on 08-17-2022 Protein [Mass/Vol] 8.1 g/dL 6.4-8.9 [facility] Protein [Mass/Vol] 8.0 g/dL 6.0-8.5 [facility] Protein [Mass/volume] in Uri neOrdered By: Zoey Ramirez on 08-17-2022 Protein (U) [Mass/Vol] 75.0 mg/dL Not Estab. [facility] Protein.monoclonal/Protein.t otal in 24 hour Urine by ElectrophoresisOrdered By: Zoey Ramirez on 08-17-2022 Protein.monoclonal Elph (24H U) [Mass fraction] Not observed % Not Observed [facility] RBC Auto (Bld) [#/Vol]Ordere d By: Zoey Ramirez on 08-17-2022 RBC (Bld) [#/Vol] 5.31 10*6/uL 3.60-5.00 [facility] Serum globulin measurement ( mass/volume)Ordered By: Zoey Ramirez on 08-17-2022 Globulin (S) [Mass/Vol] 4.3 g/dL 2.2-3.9 [facility] Serum or plasma albumin/glob ulin mass ratioOrdered By: Zoey Ramirez on 08-17-2022 Albumin/Globulin [Mass ratio] 1.0 {ratio} [facility] Albumin/Globulin [Mass ratio] 0.9 {ratio} 0.7-1.7 [facility] Serum or plasma alpha 1 glob ulin measurement by electrophoresis (mass/volume)Ordered By: Zoey Ramirez on 08-17-2022 Alpha 1 globulin Elph [Mass/Vol] 0.3 g/dL 0.0-0.4 [facility] Serum or plasma alpha 2 glob ulin measurement by electrophoresis (mass/volume)Ordered By: Zoey Ramirez on 08-17-2022 Alpha 2 globulin Elph [Mass/Vol] 0.8 g/dL 0.4-1.0 [facility] Serum or plasma anion gap de terminationOrdered By: Zoey Ramirez on 08-17-2022 Anion gap [Moles/Vol] 12.8 mmol/L 6.0-15.0 [facility] Serum or plasma beta globuli n measurement by electrophoresis (mass/volume)Ordered By: Zoey Ramirez on 08-17-2022 Beta globulin Elph [Mass/Vol] 1.3 g/dL 0.7-1.3 [facility] Serum or plasma gamma globul in measurement by electrophoresis (mass/volume)Ordered By: Zoey Ramirez on 08-17-2022 Gamma globulin Elph [Mass/Vol] 1.9 g/dL 0.4-1.8 [facility] Sodium [Moles/volume] in Ser um or PlasmaOrdered By: Zoey Ramirez on 08-17-2022 Sodium [Moles/Vol] 136 mmol/L 136-145 [facility] Transferrin [Mass/volume] in Serum or PlasmaOrdered By: Zoey Ramirez on 08-17-2022 Transferrin [Mass/Vol] 246 mg/dL 203-362 [facility] Urea nitrogen [Mass/volume] in Serum or PlasmaOrdered By: Zoey Ramirez on 08-17-2022 Urea nitrogen [Mass/Vol] 23 mg/dL 7-25 [facility] Urine alpha 1 globulin/total protein by electrophoresisOrdered By: Zoey Ramirez on 08-17-2022 Alpha 1 globulin Elph (U) [Mass fraction] 4.5 % . [facility] Urine alpha 2 globulin/total protein ratio by electrophoresisOrdered By: Zoey Ramirez on 08-17-2022 Alpha 2 globulin Elph (U) [Mass fraction] 7.7 % . [facility] Urine beta globulin measurem ent by electrophoresis (mass/volume)Ordered By: Zoey Ramirez on 08-17-2022 Beta globulin Elph (U) [Mass/Vol] 12.6 % . [facility] Vitamin B12 ser/plasOrdered By: Zoey Ramirez on 08-17-2022 Cobalamin (Vitamin B12) [Mass/Vol] 387 pg/mL 180-914 [facility] WBC Auto (Bld) [#/Vol]Ordere d By: Zoey Ramirez on 08-17-2022 WBC (Bld) [#/Vol] 9.9 10*3/uL 3.8-11.6 [facility] Established Visit (Orthopaed ic Surgery)on [...] to do her outpatient physical therapy at [facility]. She has a few visits left. [...] grammatical areas may persist related to the [employer] software Merrill Alejandro PA-C . Active Problems Problems Acute pain of both knees (338.19,719.46) (M25.561,M25.562) Status post total knee replacement (V43.65) (Z96.659) Allergies Medication Penicillins Recorded By: aTrsha Murray; 05/18/2022 8:47:33 AM Current Meds Medication NameInstruction Cyclobenzaprine HCl - 10 MG Oral TabletTAKE 1 TABLET Bedtime oxyCODONE HCl - 5 MG Oral TabletTAKE 1 TABLET EVERY 6 HOURS NEEDED FOR BREAKTHROUGH PAIN. Xarelto 10 MG Oral TabletTake 1 tablet daily Signatures Electronically signed by : Merrill Alejandro PA-C; Aug 11 2022 10:34AM EST (Author) Normal [facility] Albumin [Mass/volume] in Ser um or PlasmaOrdered By: Lorrie Baig on 07-23-2022 Albumin [Mass/Vol] 3.3 g/dL 2.9-4.4 [facility] Creatine kinase [Enzymatic a ctivity/volume] in Serum or PlasmaOrdered By: Lorrie Baig on 07-23-2022 CK [Catalytic activity/Vol] 51 U/L 30-223 [facility] Erythrocyte sedimentation ra te by Photometric methodOrdered By: Lorrie Baig on 07-23-2022 ESR Photometric method (Bld) [Velocity] 65 mm/hr 0-29 [facility] Folate [Mass/volume] in Seru m or PlasmaOrdered By: Lorrei Baig on 07-23-2022 Folate [Mass/Vol] 12.8 ng/mL >5.9 [facility] Comment on above: Folate reference ran ge: >5.9 ng/mlThe WHO technical consultation on folate and vitamin [id number] has determined that folate concentrations lessthan 4 ng/ml are considered deficient. Magnesium [Mass/volume] in S hugo or PlasmaOrdered By: Lorrie Baig on 07-23-2022 Magnesium [Mass/Vol] 1.8 mg/dL 1.9-2.7 [facility] No Panel InformationOrdered By: Lorrie Baig on 07-23-2022 Protein Electrophoresis Interpret See comment . [facility] Comment on above: Faint band in gamma region suspicious for monoclonalimmunoglobulin. This band may represent a benign spike asseen in older people or could be a paraprotein as seen inMultiple Myeloma, Waldenstrom's Macroglobulinemia orLymphoma. Depending on clinical circumstances, furtherdiagnostic studies may include serum immunofixation orserum free light chain quantitation.Performed at: [address] [id number] Director: Jeyson Duncan PhD, Phone: [phone] Protein Electrophoresis M-Antwan Comment: g/dL Not Observed [facility] Comment on above: ASYMMETRICAL GAMMA Protein Electrophoresis Note See comment . [facility] Comment on above: Protein electrophore sis scan will follow via computer,mail, or jigger operator delivery. Phosphate [Mass/volume] in S hugo or PlasmaOrdered By: Lorrie Baig on 07-23-2022 Phosphate [Mass/Vol] 4.5 mg/dL 3.7-7.2 [facility] Protein [Mass/volume] in Ser um or PlasmaOrdered By: Lorrie Baig on 07-23-2022 Protein [Mass/Vol] 7.2 g/dL 6.0-8.5 [facility] Serum globulin measurement ( mass/volume)Ordered By: Lorrie Baig on 07-23-2022 Globulin (S) [Mass/Vol] 3.9 g/dL 2.2-3.9 [facility] Serum or plasma albumin/glob ulin mass ratioOrdered By: Lorrie Baig on 07-23-2022 Albumin/Globulin [Mass ratio] 0.8 {ratio} 0.7-1.7 [facility] Serum or plasma alpha 1 glob ulin measurement by electrophoresis (mass/volume)Ordered By: Lorrie Baig on 07-23-2022 Alpha 1 globulin Elph [Mass/Vol] 0.3 g/dL 0.0-0.4 [facility] Serum or plasma alpha 2 glob ulin measurement by electrophoresis (mass/volume)Ordered By: Lorrie Baig on 07-23-2022 Alpha 2 globulin Elph [Mass/Vol] 0.7 g/dL 0.4-1.0 [facility] Serum or plasma beta globuli n measurement by electrophoresis (mass/volume)Ordered By: Lorrie Baig on 07-23-2022 Beta globulin Elph [Mass/Vol] 1.2 g/dL 0.7-1.3 [facility] Serum or plasma gamma globul in measurement by electrophoresis (mass/volume)Ordered By: Lorrie Baig on 07-23-2022 Gamma globulin Elph [Mass/Vol] 1.7 g/dL 0.4-1.8 [facility] Thyrotropin [Units/volume] i n Serum or PlasmaOrdered By: Lorrie Baig on 07-23-2022 TSH Qn 4.76 m[IU]/L 0.45-5.33 [facility] Vitamin B12 ser/plasOrdered By: Lorrie Baig on 07-23-2022 Cobalamin (Vitamin B12) [Mass/Vol] 358 pg/mL 180-914 [facility] KNEE 3 VIEWSon 07-14-2022 KNEE 3 VIEWS Patient Name: GEETA SHELTON STUDY: KNEE; 3 VIEWS; Right; 07/14/2022 8:47 am INDICATION: pain Z96.659: Status post total knee replacement. ACCESSION NUMBER(S): [id number] ORDERING CLINICIAN: ACOSTA SCHAFER FINDINGS: Right knee three views. Status post revision type total knee replacement components in good position no signs of fracture dislocation or other bony abnormality dee in the soft tissues anteriorly. Electronically signed by: ACOSTA SCHAFER MD [facility] Post Op (Orthopaedic Surgery )on [...] she will most likely do this at [facility] in [place]. Physical exam General: No acute distress and [...] grammatical areas may persist related to the [employer] software Merrill Alejandro PA-C . Active Problems Problems Acute pain of both knees (338.19,719.46) (M25.561,M25.562) Status post total knee replacement (V43.65) (Z96.659) Allergies Medication Penicillins Recorded By: Tarsha Murray; 05/18/2022 8:47:33 AM Current Meds Medication NameInstruction Xarelto 10 MG Oral TabletTake 1 tablet daily Results/Data Xray Knee 3 [id number] 08:47AMSAcosta steward Test NameResultFlagReference Xray Knee 3 View(Report) FINAL REPORT Interpreted by: ACOSTA SCHAFER BURTON, MD 07/14/22 08:49 Patient Name: GEETA SHELTON STUDY: KNEE; 3 VIEWS; Right; 07/14/2022 8:47 am INDICATION: pain Z96.659: Status post total knee replacement. ACCESSION NUMBER(S): [id number] ORDERING CLINICIAN: ACOSTA SCHAFER FINDINGS: Right knee [...] Radiologyon 07-14-2022 XR Knee 3 Views Normal -[facility] Work Phone: Basic Metabolic Panel Reflex Mgon 07-03-2022 Anion gap [Moles/Vol] 10 mmol/L Normal 9-15 [facility] Comment on above: Performed By: #### B MPX #### [facility] [address] [place] [address] Calcium [Mass/Vol] 9.2 mg/dL Normal 8.5-9.9 [facility] Comment on above: Performed By: #### B MPX #### [facility] [address] [place] [address] Chloride [Moles/Vol] 100 mmol/L Normal 95-107 [facility] Comment on above: Performed By: #### B MPX #### [facility] [address] [place] [address] CO2 [Moles/Vol] 27 mmol/L Normal 20-31 [facility] Comment on above: Performed By: #### B MPX #### [facility] [address] [place] [address] Creatinine [Mass/Vol] 0.51 mg/dL Normal 0.50-0.90 [facility] Comment on above: Performed By: #### B MPX #### [facility] [address] [place] [address] GFR >60.0 Normal >60 [facility] Comment on above: Result Comment: Pedi atric [...] [facility] [place] [address] [place] [address] Glucose [Mass/Vol] 132 mg/dL Critically high 70-99 [facility] Comment on above: Performed By: #### B MPX #### [facility] [address] [place] [address] Magnesium [Moles/Vol] 4.6 mmol/L Normal 3.4-4.9 [facility] Comment on above: Performed By: #### B MPX #### [facility] [address] [place] [address] Sodium [Moles/Vol] 137 mmol/L Normal 135-144 [facility] Comment on above: Performed By: #### B MPX #### [facility] [address] [place] [address] Urea nitrogen [Mass/Vol] 12 mg/dL Normal 6-20 [facility] Comment on above: Performed By: #### B MPX #### [facility] [address] [place] [address] Basic Metabolic Panel w/ Ref hillary to MGon 07-03-2022 Anion gap [Moles/Vol] 10 mmol/L [facility] IID Calcium [Mass/Vol] 9.2 mg/dL 8.5 - 9.9 mg/dL [facility] [employer] Chloride [Moles/Vol] 100 mmol/L [facility] [employer] CO2 [Moles/Vol] 27 mmol/L [facility] [employer] Creatinine [Mass/Vol] 0.51 mg/dL 0.50 - 0.90 mg/dL [facility] GFR/1.73 sq M.predicted MDRD (S/P/Bld) [Vol rate/Area] 60 - PINF [facility] Comment on above: Pediatric calculator link https://www.kidney.org/professionals/kdoqi/gfr_calculatorped [...] 132 mg/dL High 70 - 99 mg/dL [facility] Interpretation and review of laboratory results Abnormal [facility] Potassium reflex Magnesium 4.6 [facility] Sodium [Moles/Vol] 137 mmol/L [facility] Urea nitrogen (BldV) [Mass/Vol] 12 mg/dL 6 - 20 mg/dL [facility] CBCon 07-03-2022 Hematocrit (Bld) [Volume fraction] [...] [facility] RBC (Bld) [#/Vol] 5.02 10*6/uL [facility] WBC (Bld) [#/Vol] 9.2 10*3/uL 4.8 - 10.8 K/uL [facility] CBC With Platelet No Differe ntialon 07-03-2022 Erythrocyte distribution width (RBC) [Ratio] 16.5 % Critically high 11.5-14.5 [facility] Comment on above: Performed By: #### C BCND #### [facility] [address] [place] [address] Hematocrit (Bld) [Volume fraction] 39.9 % Normal 37.0-47.0 [facility] Comment on above: Performed By: #### C BCND #### [facility] [address] [place] [address] Hemoglobin (Bld) [Mass/Vol] 12.9 g/dL Normal 12.0-16.0 [facility] Comment on above: Performed By: #### C BCND #### [facility] [address] [place] [address] MCH (RBC) [Entitic mass] 25.7 pg Low 27.0-31.3 [facility] Comment on above: Performed By: #### C BCND #### [facility] [address] [place] [address] MCHC 32.3 % Low 33.0-37.0 [facility] Comment on above: Performed By: #### C BCND #### [facility] [address] [place] [address] MCV (RBC) [Entitic vol] 79.6 fL Normal 79.4-94.8 [facility] Comment on above: Performed By: #### C BCND #### [facility] [address] [address] Platelets (Bld) [#/Vol] 230 10*3/uL Normal 130-400 [facility] Comment on above: Performed By: #### C BCND #### [facility] [address] [place] [address] RBC (Bld) [#/Vol] 5.02 10*6/uL Normal 4.20-5.40 [facility] Comment on above: Performed By: #### C BCND #### [facility] [address] [place] [address] WBC (Bld) [#/Vol] 9.2 10*3/uL Normal 4.8-10.8 [facility] Comment on above: Performed By: #### C BCND #### [facility] [address] [place] [address] Basic Metabolic Panel Reflex Mgon 07-02-2022 Anion gap [Moles/Vol] 8 mmol/L Low 9-15 [facility] Comment on above: Order Comment: Daja ction has been rescheduled by HERAM at 07/02/2022 05:49 Reason: Come back last per rn fouzia Performed By: #### B MPX #### [facility] [address] [place] [address] Calcium [Mass/Vol] 8.9 mg/dL Normal 8.5-9.9 [facility] Comment on above: Order Comment: Daja ction has been rescheduled by HERAM at 07/02/2022 05:49 Reason: Come back last per rn fouzia Performed By: #### B MPX #### [facility] [address] [place] [address] Chloride [Moles/Vol] 100 mmol/L Normal 95-107 [facility] Comment on above: Order Comment: Daja ction has been rescheduled by HERAM at 07/02/2022 05:49 Reason: Come back last per rn fouzia Performed By: #### B MPX #### [facility] [address] [place] [place] [address] CO2 [Moles/Vol] 27 mmol/L Normal 20-31 [facility] Comment on above: Order Comment: Daja ction has been rescheduled by HERAM at 07/02/2022 05:49 Reason: Come back last per rn fouzia Performed By: #### B MPX #### [facility] [address] [place] [place] [address] Creatinine [Mass/Vol] 0.61 mg/dL Normal 0.50-0.90 [facility] Comment on above: Order Comment: Daja ction has been rescheduled by HERAM at 07/02/2022 05:49 Reason: Come back last per rn fouzia Performed By: #### B MPX #### [facility] [address] [place] [address] GFR >60.0 Normal >60 [facility] [address] [place] [address] Glucose [Mass/Vol] 144 mg/dL Critically high 70-99 [facility] Comment on above: Order Comment: Daja zamarripa has been rescheduled by HERAM at 07/02/2022 05:49 Reason: Come back last per kip reinoso Performed By: #### B MPX #### [facility] [address] [place] [address] Magnesium [Moles/Vol] 4.8 mmol/L Normal 3.4-4.9 [facility] Comment on above: Order Comment: Daja zamarripa has been rescheduled by HERAM at 07/02/2022 05:49 Reason: Come back last per kip reinoso Performed By: #### B MPX #### [facility] [address] [place] [address] Sodium [Moles/Vol] 135 mmol/L Normal 135-144 [facility] Comment on above: Order Comment: Daja ction has been rescheduled by HERAM at 07/02/2022 05:49 Reason: Come back last per kip reinoso Performed By: #### B MPX #### [facility] [address] [place] [address] Urea nitrogen [Mass/Vol] 21 mg/dL Critically high 6-20 [facility] Comment on above: Order Comment: Daja ction has been rescheduled by HERAM at 07/02/2022 05:49 Reason: Come back last per kip reinoso Performed By: #### B MPX #### [facility] [address] [place] [address] Basic Metabolic Panel w/ Ref hillary to MGon 07-02-2022 Anion gap [Moles/Vol] 8 mmol/L Low [facility] Calcium [Mass/Vol] 8.9 mg/dL 8.5 - 9.9 mg/dL [facility] Chloride [Moles/Vol] 100 mmol/L [facility] CO2 [Moles/Vol] 27 mmol/L [facility] Creatinine [Mass/Vol] 0.61 mg/dL 0.50 - 0.90 [...] and review of laboratory results Abnormal [facility] Potassium reflex Magnesium 4.8 [facility] Sodium [Moles/Vol] 135 mmol/L [facility] Urea nitrogen (BldV) [Mass/Vol] 21 mg/dL High 6 - 20 mg/dL [facility] Collection has been rescheduled by VALDO at 07/02/2022 05:49 Reason: Come back last per kip reinoso [facility] CBCon 07-02-2022 [...] [facility] RBC (Bld) [#/Vol] 5.06 10*6/uL [facility] WBC (Bld) [#/Vol] 9.1 10*3/uL 4.8 - 10.8 K/uL [facility] Collection has been rescheduled by VALDO at 07/02/2022 05:49 Reason: Come back last per kip galdamezfouzia [facility] CBC With Platelet No Differe ntialon 07-02-2022 Erythrocyte distribution width (RBC) [Ratio] 16.3 % Critically high 11.5-14.5 [facility] Comment on above: Order Comment: Daja zamarripa has been rescheduled by VALDO at 07/02/2022 05:49 Reason: Come back last per kip reinoso Performed By: #### C BCND #### [facility] [address] [place] [address] Hematocrit (Bld) [Volume fraction] 40.3 % Normal 37.0-47.0 [facility] Comment on above: Order Comment: Daja zamarripa has been rescheduled by VALDO at 07/02/2022 05:49 Reason: Come back last per kip reinoso Performed By: #### C BCND #### [facility] [address] [place] [address] Hemoglobin (Bld) [Mass/Vol] 12.9 g/dL Normal 12.0-16.0 [facility] Comment on above: Order Comment: Daja zamarripa has been rescheduled by HERAM at 07/02/2022 05:49 Reason: Come back last per rn fouzia Performed By: #### C BCND #### [facility] [address] [place] [address] MCH (RBC) [Entitic mass] 25.5 pg Low 27.0-31.3 [facility] Comment on above: Order Comment: Daja zamarripa has been rescheduled by HERAM at 07/02/2022 05:49 Reason: Come back last per rn fouzia Performed By: #### C BCND #### [facility] [address] [place] [address] MCHC 32.1 % Low 33.0-37.0 [facility] Comment on above: Order Comment: Daja zamarripa has been rescheduled by HERAM at 07/02/2022 05:49 Reason: Come back last per rn fouzia Performed By: #### C BCND #### [facility] [address] [place] [place] [address] MCV (RBC) [Entitic vol] 79.6 fL Normal 79.4-94.8 [facility] Comment on above: Order Comment: Daja zamarripa has been rescheduled by HERAM at 07/02/2022 05:49 Reason: Come back last per rn fouzia Performed By: #### C BCND #### [facility] [address] [place] [address] Platelets (Bld) [#/Vol] 230 10*3/uL Normal 130-400 [facility] Comment on above: Order Comment: Daja zamarripa has been rescheduled by HERAM at 07/02/2022 05:49 Reason: Come back last per rn fouzia Performed By: #### C BCND #### [facility] [address] [place] [address] RBC (Bld) [#/Vol] 5.06 10*6/uL Normal 4.20-5.40 [facility] Comment on above: Order Comment: Daja zamarripa has been rescheduled by HERAM at 07/02/2022 05:49 Reason: Come back last per rn fouzia Performed By: #### C BCND #### [facility] [address] [place] [address] WBC (Bld) [#/Vol] 9.1 10*3/uL Normal 4.8-10.8 [facility] Comment on above: Order Comment: Daja zamarripa has been rescheduled by HERAM at 07/02/2022 05:49 Reason: Come back last per rn fouzia Performed By: #### C BCND #### [facility] [address] [place] [address] US DUP UPPER EXTREMITY LEFT VENOUSon 07-02-2022 [...] [facility] [place] No evidence of DVT. [facility] EXAMINATION: VENOUS ULTRASOUND OF THE LEFT [...] normal color flow study and spectral analysis. [facility] Jean Sifuentes MD - [...] spectral analysis. IMPRESSION: No evidence of DVT. [employer] Phone: [employer] Phone: Radiology Study observation (narrative) [employer] Phone: XR KNEE RIGHT (1-2 VIEWS)on 07-01-2022 [...] [facility] Normal postsurgical appearance [facility] RADIOLOGY EXAMINATION: TWO XRAY VIEWS [...] are intact. Overlying surgical dee are seen [facility] RADI[facility] Jean Sifuentes MD - [...] dee are seen IMPRESSION: Normal postsurgical appearance [employer] Work Phone: Radiology Study observation (narrative) [employer] Work Phone: XR KNEE RIGHT (1-2 VIEWS)Ord ered By: Jean Sifuentes on 07-01-2022 [employer] Work Phone: MRSA DNA Probe, Nasalon MRSA, DNA, Nasal Negative NEG [employer] Comment on above: NEGATIVE: MRSA DNA n ot detected by nucleic acid amplification. Results should be used as an adjunct to nosocomial control efforts to identify patients needing enhanced precautions. The test is not intended to identify patients with staphylococcal infections. Results should not be used to guide or monitor treatment for MRSA infections. [employer] [address] [place] [id number] Specimen Description Swab [facility] MRSA, DNA, Nasalon MRSA, DNA, Nasal Negative Normal NEG Middle [...] guide or monitor treatment for MRSA infections. [employer] [address] [place], [place] [id number] [phone] Performed By: #### I MRSA #### [facility] [address] [place] [address] EKG 12 LeadOrdered By: Leigh Ann Nash on 06-25-2022 Atrial Rate 73 BPM [employer] Work Phone: P [place] 33 degrees [employer] Work Phone: P-R Interval 160 ms [employer] Work Phone: Q-T Interval 406 ms [employer] Work Phone: QRS Duration 102 ms [employer] Work Phone: QTc Calculation (Bazett) 447 ms [employer] Work Phone: R [place] 74 degrees [employer] Work Phone: T [place] 65 degrees [employer] Work Phone: Ventricular Rate 73 BPM [employer] Work Phone: [employer] Work Phone: EKG 12 Leadon 06-25-2022 Normal sinus rhythm Incomplete right bundle branch block Confirmed by LEIGH ANN NASH ([id number]) on 06/25/2022 6:49:48 PM Leigh Ann Sumner F, DO - 06/25/2022 Normal sinus rhythm Incomplete right bundle branch block Confirmed by LEIGH ANN NASH ([id number]) on 06/25/2022 6:49:48 PM [employer] Work Phone: Established Visit (Orthopaed ic Surgery)on 06-25-2022 Established Visit (Orthopaedic Surgery) Chief Complaint Pre-op RT TK-Revision 07/01/22 @ [facility] History of Present Illness This patient has [...] plans on performing outpatient physical therapy at [facility] in [place]. All of the patient's questions and concerns were answered. This note was prepared using voice recognition software. The details of this note are correct and have been reviewed, and corrected to the best of my ability. Some grammatical areas may persist related to the [employer] software Merrill Alejandro PA-C . Active Problems Problems Acute pain of both knees (338.19,719.46) (M25.561,M25.562) Allergies Medication Penicillins Recorded By: Tarsha Murray; 05/18/2022 8:47:33 AM Signatures Electronically signed by : Merrill Alejandro PA-C; Jun 25 2022 2:21PM EST (Author) Normal [facility] PT Initial Evaluationon 03-0 PT Initial Evaluation [...] today's treatment with some difficulty. Evaluation Code: 59050 PT Eval: Low Complexity, 32 min(s). Resources provided today: education Signatures Electronically signed by : Natali Tyson, PT DPT; Jun 30 2022 10:08AM EST (Author) Normal [employer] APTTon 06-24-2022 aPTT Coag (Bld) [Time] 30.1 s [facility] Comment on above: Effective 02/27/2020: Heparin Therapeutic Range: 64.0 98.0 seconds. [facility] CBC With Platelet and Differ entialon 06-24-2022 Basophils (Bld) [#/Vol] 0.1 10*3/uL Normal 0.0-0.2 [facility] Comment on above: Performed By: #### C BCWD #### [facility] [address] [place] [address] Basophils/100 WBC (Bld) 0.6 % Normal [facility] Comment on above: Performed By: #### C BCWD #### [facility] [address] [place] [address] Eosinophils (Bld) [#/Vol] 0.1 10*3/uL Normal 0.0-0.7 [facility] Comment on above: Performed By: #### C BCWD #### [facility] [address] [place] [address] Eosinophils/100 WBC (Bld) 1.6 % Normal [facility] Comment on above: Performed By: #### C BCWD #### [facility] [address] [place] [address] Erythrocyte distribution width (RBC) [Ratio] 16.4 % Critically high 11.5-14.5 [facility] Comment on above: Performed By: #### C BCWD #### [facility] [address] [place] [address] Hematocrit (Bld) [Volume fraction] 44.4 % Normal 37.0-47.0 [facility] Comment on above: Performed By: #### C BCWD #### [facility] [address] [place] [address] Hemoglobin (Bld) [Mass/Vol] 14.2 g/dL Normal 12.0-16.0 [facility] Comment on above: Performed By: #### C BCWD #### [facility] [address] [place] [address] Lymphocytes (Bld) [#/Vol] 2.3 10*3/uL Normal 1.0-4.8 [facility] Comment on above: Performed By: #### C BCWD #### [facility] [address] [place] [address] Lymphocytes/100 WBC (Bld) 25.8 % Normal [facility] Comment on above: Performed By: #### C BCWD #### [facility] [address] [place] [address] MCH (RBC) [Entitic mass] 25.1 pg Low 27.0-31.3 [facility] Comment on above: Performed By: #### C BCWD #### [facility] [address] [place] [address] MCHC 32.0 % Low 33.0-37.0 [facility] Comment on above: Performed By: #### C BCWD #### [facility] [address] [place] [address] MCV (RBC) [Entitic vol] 78.5 fL Low 79.4-94.8 [facility] Comment on above: Performed By: #### C BCWD #### [facility] [address] [place] [address] Monocytes (Bld) [#/Vol] 0.8 10*3/uL Normal 0.2-0.8 [facility] Comment on above: Performed By: #### C BCWD #### [facility] [address] [place] [address] Monocytes/100 WBC (Bld) 9.4 % Normal [facility] Comment on above: Performed By: #### C BCWD #### [facility] [address] [place] [address] Neutrophils (Bld) [#/Vol] 5.6 10*3/uL Normal 1.4-6.5 [facility] Comment on above: Performed By: #### C BCWD #### [facility] [address] [place] [address] Neutrophils/100 WBC (Bld) 62.6 % Normal [facility] Comment on above: Performed By: #### C BCWD #### [facility] [address] [place] [address] Platelets (Bld) [#/Vol] 281 10*3/uL Normal 130-400 [facility] Comment on above: Performed By: #### C BCWD #### [facility] [address] [place] [address] RBC (Bld) [#/Vol] 5.66 10*6/uL Critically high 4.20-5.40 [facility] Comment on above: Performed By: #### C BCWD #### [facility] [address] [place] [address] WBC (Bld) [#/Vol] 8.9 10*3/uL Normal 4.8-10.8 [facility] Comment on above: Performed By: #### C BCWD #### [facility] [address] [place] [address] CBC with Auto Differentialon 06-24-2022 Basophils (Bld) [#/Vol] 0.1 10*3/uL 0.0 - 0.2 K/uL [facility] Basophils/100 WBC (Bld) 0.6 % B ON [facility] Eosinophils (Bld) [#/Vol] 0.1 10*3/uL 0.0 - 0.7 K/uL [facility] Eosinophils/100 WBC (Bld) 1.6 % [facility] Hematocrit (Bld) [Volume fraction] 44.4 % [...] Monocytes/100 WBC (Bld) 9.4 % B [facility] Neutrophils Absolute 5.6 K/uL 1.4 - 6 .5 K/uL [facility] Neutrophils/100 WBC (Bld) 62.6 % [facility] Platelet distribution width (Bld) [Ratio] 16.4 % High 11.5 - 14.5 % [facility] Platelets (Bld) [#/Vol] 281 10*3/uL 130 - 400 K/uL [facility] RBC (Bld) [#/Vol] 5.66 10*6/uL High [facility] WBC (Bld) [#/Vol] 8.9 10*3/uL 4.8 - 10.8 K/uL [facility] Comprehensive Metabolic Pane gretel 03-02-2023 Albumin [Mass/Vol] 4.2 g/dL Normal 3.5-4.6 [facility] Comment on above: Performed By: #### U MARIA ELENA #### [facility] [address] [place] [address] ALP [Catalytic activity/Vol] 89 U/L Normal 40-130 [facility] Comment on above: Performed By: #### U MARIA ELENA #### [facility] [address] [place] [address] ALT [Catalytic activity/Vol] 47 U/L Critically high 0-33 [facility] Comment on above: Performed By: #### U MARIA ELENA #### [facility] [address] [place] [address] Anion gap [Moles/Vol] 13 mmol/L Normal 9-15 [facility] Comment on above: Performed By: #### U MARIA ELENA #### [facility] [address] [place] [address] AST [Catalytic activity/Vol] 44 U/L Critically high 0-35 [facility] Comment on above: Performed By: #### U MARIA ELENA #### [facility] [address] [place] [address] Bilirubin [Mass/Vol] 0.5 mg/dL Normal 0.2-0.7 [facility] Comment on above: Performed By: #### U MARIA ELENA #### [facility] [address] [place] [address] Calcium [Mass/Vol] 9.2 mg/dL Normal 8.5-9.9 [facility] Comment on above: Performed By: #### U MARIA ELENA #### [facility] [address] [place] [address] Chloride [Moles/Vol] 100 mmol/L Normal 95-107 [facility] Comment on above: Performed By: #### U MARIA ELENA #### [facility] [address] [place] [address] CO2 [Moles/Vol] 26 mmol/L Normal 20-31 [facility] Comment on above: Performed By: #### U MARIA ELENA #### [facility] [address] [place] [address] Creatinine [Mass/Vol] 0.54 mg/dL Normal 0.50-0.90 [facility] Comment on above: Performed By: #### U MARIA ELENA #### [facility] [address] [place] [address] GFR >60.0 Normal >60 [facility] Comment on above: Result Comment: Pedi atric [...] [facility] [place] [address] [place] [address] Globulin (S) [Mass/Vol] 3.9 g/dL Critically high 2.3-3.5 [facility] Comment on above: Performed By: #### U MARIA ELENA #### [facility] [address] [place] [address] Glucose [Mass/Vol] 124 mg/dL Critically high 70-99 [facility] Comment on above: Performed By: #### U MARIA ELENA #### [facility] [address] [place] [address] Potassium [Moles/Vol] 4.4 mmol/L Normal 3.4-4.9 [facility] Comment on above: Performed By: #### U MARIA ELENA #### [facility] [address] [place] [address] Protein [Mass/Vol] 8.1 g/dL Critically high 6.3-8.0 [facility] Comment on above: Performed By: #### U MARIA ELENA #### [facility] [address] [place] [address] Sodium [Moles/Vol] 139 mmol/L Normal 135-144 [facility] Comment on above: Performed By: #### U MARIA ELENA #### [facility] [address] [place] [address] Urea nitrogen [Mass/Vol] 14 mg/dL Normal 6-20 [facility] Comment on above: Performed By: #### U MARIA ELENA #### [facility] [address] [place] [address] Albumin [Mass/Vol] 4.2 g/dL 3.5 - 4.6 [...] [facility] CO2 [Moles/Vol] 26 mmol/L [facility] Creatinine [Mass/Vol] 0.54 mg/dL 0.50 - 0.90 [...] [facility] Sodium [Moles/Vol] 139 mmol/L [facility] Urea nitrogen (BldV) [Mass/Vol] 14 mg/dL 6 - 20 mg/dL [facility] Laboratory - Coagulationon 0 06-24-2022 INR Coag (Bld) [Relative time] 1.1 {INR} Normal [facility] Work Phone: Laboratory - Hematology and Cell countson 06-24-2022 Basophils/100 WBC (Bld) 0.6 % Normal [facility] Work Phone: Eosinophils/100 WBC (Bld) 1.6 % Normal [facility] Work Phone: Lymphocytes/100 WBC (Bld) 25.8 % [facility] Work Phone: Monocytes/100 WBC (Bld) 9.4 % Normal [facility] Work Phone: Neutrophils/100 WBC (Bld) 62.6 % Normal [facility] Work Phone: [phone] MRSA, DNA, Nasalon 3 Specimen Description Swab Normal [facility] Comment on above: Performed By: #### I MRSA #### [facility] [address] [place] [address] Microscopic Urinalysison Bacteria, UA FEW Abnormal Negative /HPF [facility] Epithelial Cells, UA 0-2 [facility] Hyaline Casts, UA 0-1 [facility] RBC, UA 0-2 [facility] WBC, UA 3-5 [facility] No Panel Informationon 06-24 Interpretation and review of laboratory results Abnormal [facility] TRACE Abnormal Negative [facility] [...] [facility] Work Phone: Yellow Normal [place] [facility] Work Phone: 0-2 Normal 0-5 [facility] Work Phone: 3-5 Normal 0-5 [facility] Work Phone: 0-1 Normal 0-5 [facility] Work Phone: FEW Abnormal Negative [facility] Work Phone: [phone] K/uL Normal 130-400 [facility] Work Phone: 16.4 % above high threshold 11.5-14.5 [facility] Work Phone: [phone] 32.0 % below low threshold 33.0-37.0 [facility] Work Phone: [phone] 0.1 K/uL Normal 0.0-0.2 [facility] Work Phone: [phone] 0.8 K/uL Normal 0.2-0.8 [facility] Work Phone: [phone] 2.3 K/uL Normal 1.0-4.8 [facility] Work Phone: [phone] 5.6 K/uL Normal 1.4-6.5 [facility] Work Phone: [phone] 25.1 pg below low threshold 27.0-31.3 [facility] Work Phone: [phone] 78.5 fL below low threshold 79.4-94.8 [facility] Work Phone: [phone] 44.4 % Normal 37.0-47.0 [facility] Work Phone: 14.2 g/dL Normal 12.0-16.0 [facility] Work Phone: 5.66 {M/uL} above high threshold 4.20-5.40 [facility] Work Phone: [phone] 8.9 K/uL Normal 4.8-10.8 [facility] Work Phone: [phone] 14.8 {sec} Normal 12.3-14.9 [facility] Work Phone: 30.1 {sec} Normal 24.4-36.8 [facility] Work Phone: Comment on above: Effective 02/27/2020: Heparin Therapeutic Range: 64.0 ? 98.0 seconds. 4.2 g/dL Normal 3.5-4.6 [facility] Work Phone: [phone] 3.9 g/dL above high threshold 2.3-3.5 [facility] Work Phone: 44 U/L above high threshold 0-35 [facility] Work Phone: [phone] U/L above high threshold 0-33 [facility] Work Phone: 89 U/L Normal 40-130 [facility] Work Phone: [phone] 0.5 mg/dL Normal 0.2-0.7 [facility] Work Phone: [phone] 8.1 g/dL above high threshold 6.3-8.0 [facility] Work Phone: [phone] 9.2 mg/dL Normal 8.5-9.9 [facility] Work Phone: [phone] >60.0 Normal >60 [facility] Work Phone: [phone] Comment on above: Pediatric calculator linkhttps://www.kidney.org/professionals/kdoqi/gfr_calculator [...] [facility] Work Phone: 13 {mEq/L} Normal 9-15 [facility] Work Phone: 26 {mEq/L} Normal 20-31 [facility] Work Phone: 100 {mEq/L} Normal 95-107 [facility] Work Phone: 4.4 {mEq/L} Normal 3.4-4.9 [facility] Work Phone: 139 {mEq/L} Normal 135-144 [facility] Work Phone: Negative Normal NEG [facility] Work Phone: Comment on above: NEGATIVE: MRSA DNA n ot detected by nucleic acid amplification. Results should be used as an adjunct to nosocomial control efforts toidentify patients needing enhanced precautions.The test is not intended to identify patients with staphylococcalinfections. Results should not be used to guide or monitor treatmentfor MRSA infections.[facility] [employer] [facility] [place] [address] Swab Normal [facility] Work Phone: Partial Thromboplastin Timeo n 06-24-2022 aPTT Coag (Bld) [Time] 30.1 s Normal 24.4-36.8 [facility] Comment on above: Result Comment: Effe ctive 02/27/2020: Heparin Therapeutic Range: 64.0 ? 98.0 seconds. Performed By: #### U MARIA ELENA #### [facility] [address] [place] [address] Prothrombin Timeon 3 INR Coag (PPP) [Relative time] 1.1 {INR} Normal [facility] Comment on above: Performed By: #### P T #### [facility] [address] [place] [address] PT Coag (PPP) [Time] 14.8 s Normal 12.3-14.9 [facility] Comment on above: Performed By: #### P T #### [facility] [address] [place] [address] Protime-INRon 06-24-2022 INR Coag (Bld) [Relative time] 1.1 {INR} [facility] PT Coag (PPP) [Time] 14.8 s [facility] IID TYPE AND SCREENon 06-24-2022 ABO/Rh Negative [facility] Comment on above: @06/24/22 14:01 by Elaina FISCHER: BACK TYPE CONFIRMED IN TUBE. [facility] Confirmation type ne eds to be drawn. [facility] Type and 3 cell Screen OB Ca ptureon 06-24-2022 Type and 3 cell Screen OB Capture PATIENT: PINKY Prince LOC: [facility]IFTY[place]LL# : [id number] : 1970 SEX: F ORDERED BY: GILMAR COX ORDERED : 06/24/2022 11:08 COLLECTED: 06/24/2022 11:45 ORDER : [id number] RECEIVED : 06/24/2022 11:45 Confirmation type needs [...] #### [facility] [address] [place] [address] Urinalysis with Reflex to Cu ltureon 06-24-2022 Bilirubin Urine Negative Negative [facility] Blood, Urine Negative Negative [facility] Clarity, UA Clear Clear [facility] Color, UA Yellow Straw/[place] ow [facility] Glucose, Ur Negative Negative mg/dL [facility] Ketones Ql (U) Negative Negative mg/dL [facility] Leukocyte esterase Test strip Ql (U) TRACE Abnormal Negative [facility] Nitrite, Urine Negative Negative [facility] pH, UA 7.0 5.0 - 9.0 [facility] Protein (U) [Mass/Vol] 30 mg/dL Abnormal Negative [facility] Specific [place], UA 1.010 1.005 - 1.030 [facility] Urine Reflex to Culture Not Indicated [facility] Urobilinogen, Urine 0.2 NINF [facility] Urinalysis, reflex to cultur gurinder 06-24-2022 Urine Reflexed to Culture Not Indicated Normal [facility] Comment on above: Performed By: #### U AR #### [facility] [address] [place] [address] Bilirubin Ql (U) Negative Normal Negative [facility] Comment on above: Performed By: #### U AR #### [facility] [address] [place] [address] Clarity (U) Clear Normal Clear [facility] Comment on above: Performed By: #### U AR #### [facility] [address] [place] [address] Color (U) Yellow Normal Straw/[place] [facility] Comment on above: Performed By: #### U AR #### [facility] [address] [place] [address] Glucose Ql (U) Negative Normal Negative [facility] Comment on above: Performed By: #### U AR #### [facility] [address] [place] [address] Hemoglobin Ql (U) Negative Normal Negative [facility] Comment on above: Performed By: #### U AR #### [facility] [address] [place] [place] [address] Ketones Ql (U) Negative Normal Negative [facility] Comment on above: Performed By: #### U AR #### [facility] [address] [place] [address] Leukocyte esterase Test strip Ql (U) TRACE Abnormal Negative [facility] Comment on above: Performed By: #### U AR #### [facility] [address] [place] [place] [address] Nitrite Ql (U) Negative Normal Negative [facility] Comment on above: Performed By: #### U AR #### [facility] [address] [place] [address] pH (U) 7.0 [pH] Normal 5.0-9.0 [facility] Comment on above: Performed By: #### U AR #### [facility] [address] [place] [address] Protein Ql (U) 30 mg/dL Abnormal Negative [facility] Comment on above: Performed By: #### U AR #### [facility] [address] [place] [address] Specific gravity (U) [Rel density] 1.010 Normal 1.005-1.03 [facility] Comment on above: Performed By: #### U AR #### [facility] [address] [place] [place] [address] Urobilinogen Qn (U) 0.2 {Reji'U}/dL Normal < 2.0 [facility] Comment on above: Performed By: #### U AR #### [facility] [address] [place] [place] [address] Urine Microscopicon 06-25-19 23 Urine Bacteria FEW Abnormal Negative [facility] Comment on above: Performed By: #### U MARIA ELENA #### [facility] [address] [place] [address] Urine Epithelial Cells Auto 0-2 Normal 0-5 [facility] Comment on above: Performed By: #### U MARIA ELENA #### [facility] [address] [place] [address] Urine Hyaline Casts Auto 0-1 Normal 0-5 [facility] Comment on above: Performed By: #### U MARIA ELENA #### [facility] [address] [place] [address] Urine RBC Auto 0-2 Normal 0-5 [facility] Comment on above: Performed By: #### U MARIA ELENA #### [facility] [address] [place] [address] Urine WBC Auto 3-5 Normal 0-5 [facility] Comment on above: Performed By: #### U MARIA ELENA #### [facility] [address] [place] [address] BILATERAL KNEE COMPLT, 4 OR MORE VIEWSon 05-18-2022 BILATERAL KNEE COMPLT, 4 OR MORE VIEWS Patient Name: GEETA SHELTON STUDY: BILATERAL KNEE; COMPLT, 4 OR MORE VIEWS; ; 05/18/2022 9:07 am INDICATION: pain M25.561: Acute pain of both knees M25.562:. ACCESSION NUMBER(S): [id number] ORDERING CLINICIAN: ACOSTA SCHAFER FINDINGS: Weightbearing four [...] abnormalities Electronically signed by: ACOSTA SCHAFER MD [facility] Initial Visit (Orthopaedic S urgery)on 05-18-2022 Initial Visit (Orthopaedic Surgery) Diagnoses/Problems Assessed Acute pain of both knees (338.19,719.46) (M25.561,M25.562) Orders Acute pain of both knees Xray Knee Bilateral, Complete, 4 or More Views; Status:Resulted - Preliminary; Done: [id number] 09:07AM Radiologist to Determine Optimal Study : [...] Radiologyon 05-18-2022 XR Knee 4 Views Normal -[facility] Work Phone: Albumin [Mass/volume] in Ser um or PlasmaOrdered By: Elizabeth Alvarado on 05-07-2022 Albumin [Mass/Vol] 3.9 g/dL 3.2-5.5 [facility] Alkaline phosphatase [Enzyma tic activity/volume] in Serum or PlasmaOrdered By: Elizabeth Alvarado on 05-07-2022 ALP [Catalytic activity/Vol] 83 U/L 32-92 [facility] Aspartate aminotransferase [ Enzymatic activity/volume] in Serum or PlasmaOrdered By: Elizabeth Alvarado on 05-07-2022 AST [Catalytic activity/Vol] 56 U/L 10-42 [facility] Basophils Auto (Bld) [#/Vol] Ordered By: Elizabeth Alvarado on 05-07-2022 Basophils (Bld) [#/Vol] 0.1 10*3/uL 0.0-0.2 [facility] Basophils/100 WBC Auto (Bld) Ordered By: Elizabeth Alvarado on 05-07-2022 Basophils/100 WBC (Bld) 0.7 % . [facility] Bilirubin.total [Mass/volume ] in Serum or PlasmaOrdered By: Elizabeth Alvarado on 05-07-2022 Bilirubin [Mass/Vol] 0.6 mg/dL 0.3-1.2 [facility] Calcium [Mass/volume] in Ser um or PlasmaOrdered By: Elizabeth Alvarado on 05-07-2022 Calcium [Mass/Vol] 9.1 mg/dL 8.2-10.2 [facility] Carbon dioxide, total [Moles /volume] in Serum or PlasmaOrdered By: Elizabeth Alvarado on 05-07-2022 CO2 [Moles/Vol] 28.1 mmol/L 22.0-30.0 [facility] Chloride [Moles/volume] in S hugo or PlasmaOrdered By: Elizabeth Alvarado on 05-07-2022 Chloride [Moles/Vol] 100 mmol/L 95-114 [facility] Cholesterol [Mass/volume] in Serum or PlasmaOrdered By: Elizabeth Alvarado on 05-07-2022 Cholesterol [Mass/Vol] 181 mg/dL 140-200 [facility] Comment on above: Chol less than 200 m g/dl low riskChol 201-239 mg/dl borderline riskChol 240 mg/dl and greater high risk Cholesterol in LDL Calc [Mas s/Vol]Ordered By: Elizabeth Alvarado on 05-07-2022 Cholesterol in LDL [Mass/Vol] 102 mg/dL 0-100 [facility] Comment on above: LDL ATP III CLASSIFI CATIONLDL less than 100 mg/dL OptimalLDL 100-129 mg/dL Near or above optimalLDL 130-159 mg/dL Borderline highLDL 160-189 mg/dL HighLDL greater than 189 mg/dL Very high Cholesterol in VLDL Calc [Ma ss/Vol]Ordered By: Elizabeth Alvarado on 05-07-2022 Cholesterol in VLDL [Mass/Vol] 20 mg/dL [facility] Creatinine and Glomerular fi ltration rate.predicted panel (S/P/Bld)Ordered By: Elizabeth Alvarado on 05-07-2022 Creatinine [Mass/Vol] 0.65 mg/dL 0.44-1.03 [facility] Eosinophils Auto (Bld) [#/Vo l]Ordered By: Elizabeth Alvarado on 05-07-2022 Eosinophils (Bld) [#/Vol] 0.1 10*3/uL 0.0-0.45 [facility] Eosinophils/100 WBC Auto (Bl d)Ordered By: Elizabeth Alvarado on 05-07-2022 Eosinophils/100 WBC (Bld) 1.8 % . [facility] Erythrocyte distribution wid th Auto (RBC) [Ratio]Ordered By: Elizabeth Alvarado on 05-07-2022 Erythrocyte distribution width (RBC) [Ratio] 17.8 % 11.9-15.3 [facility] Estimated glomerular filtrat ion rate (GFR) non- AmericanOrdered By: Elizabeth Alvarado on 05-07-2022 GFR/1.73 sq M.predicted among non-blacks MDRD (S/P/Bld) [Vol rate/Area] > 60 mL/Min [facility] Globulin Calc (S) [Mass/Vol] Ordered By: Elizabeth Alvarado on 05-07-2022 Globulin (S) [Mass/Vol] 3.7 g/dL [facility] Glucose [Mass/volume] in Ser um or PlasmaOrdered By: Elizabeth Alvarado on 05-07-2022 Glucose [Mass/Vol] 137 mg/dL 70-100 [facility] Comment on above: ADA recommended refe rence rangeRandom Glucose Reference Range is dependent on time and content of last meal. Glucose of more than 200 mg/dL in a nonstressed, ambulatory subject supports the diagnosis of Diabetes Mellitus. Hematocrit Auto (Bld) [Volum e fraction]Ordered By: Elizabeth Alvarado on 05-07-2022 Hematocrit (Bld) [Volume fraction] 45.4 % 34.0-46.4 [facility] Hemoglobin [Mass/volume] in BloodOrdered By: Elizabeth Alvarado on 05-07-2022 Hemoglobin (Bld) [Mass/Vol] 14.1 g/dL 11.8-15.4 [facility] Leukocytes [#/volume] correc silverio for nucleated erythrocytes in Blood by Automated counOrdered By: Elizabeth Alvarado on 05-07-2022 WBC corrected for nucl RBC Auto (Bld) [#/Vol] 7.9 10*3/uL 3.8-11.6 [facility] Lymphocytes Auto (Bld) [#/Vo l]Ordered By: Elizabeth Alvarado on 05-07-2022 Lymphocytes (Bld) [#/Vol] 2.4 10*3/uL 1.00-4.8 [facility] Lymphocytes/100 WBC Auto (Bl d)Ordered By: Elizabeth Alvarado on 05-07-2022 Lymphocytes/100 WBC (Bld) 30.9 % . [facility] MCH Auto (RBC) [Entitic mass ]Ordered By: Elizabeth Alvarado on 05-07-2022 MCH (RBC) [Entitic mass] 24.6 pg 24.7-34.3 [facility] MCHC Auto (RBC) [Mass/Vol]Or dered By: Elizabeth Alvarado on 05-07-2022 MCHC (RBC) [Mass/Vol] 31.0 g/dL 32.0-35.0 [facility] MCV Auto (RBC) [Entitic vol] Ordered By: Elizabeth Alvarado on 05-07-2022 MCV (RBC) [Entitic vol] 79.4 fL 80-100 [facility] Monocytes Auto (Bld) [#/Vol] Ordered By: Elizabeth Alvarado on 05-07-2022 Monocytes (Bld) [#/Vol] 0.7 10*3/uL 0.0-0.8 [facility] Monocytes/100 WBC Auto (Bld) Ordered By: Elizabeth Alvarado on 05-07-2022 Monocytes/100 WBC (Bld) 9.3 % . [facility] Neutrophils Auto (Bld) [#/Vo l]Ordered By: Elizabeth Alvarado on 05-07-2022 Neutrophils (Bld) [#/Vol] 4.5 10*3/uL 1.8-7.7 [facility] Neutrophils/100 WBC Auto (Bl d)Ordered By: Elizabeth Alvarado on 05-07-2022 Neutrophils/100 WBC (Bld) 57.3 % . [facility] No Panel InformationOrdered By: Elizabeth Alvarado on 05-07-2022 Estimated GFR () > 60 mL/Min [facility] Comment on above: GFR estimated refere nce range: According to KDOQI guidelines, <60 ml/min/1.73m2 is sufficient to diagnose a patient with chronic kidney disease. Pharmacy Creatinine Clearance (Chem N/A [facility] Nucleated erythrocytes [Pres ence] in Blood by Automated countOrdered By: Elizabeth Alvarado on 05-07-2022 Nucleated RBC Auto Ql (Bld) 0.1 /100{WBC} 0-0.5 [facility] Platelet mean volume Auto (B ld) [Entitic vol]Ordered By: Elizabeth Alvarado on 05-07-2022 Platelet mean volume (Bld) [Entitic vol] 9.4 fL 6.3-10.7 [facility] Platelets Auto (Bld) [#/Vol] Ordered By: Elizabeth Alvarado on 05-07-2022 Platelets (Bld) [#/Vol] 242 10*3/uL 150-450 [facility] Potassium [Moles/volume] in Serum or PlasmaOrdered By: Elizabeth Alvarado on 05-07-2022 Potassium [Moles/Vol] 4.3 mmol/L 3.5-5.1 [facility] Protein [Mass/volume] in Ser um or PlasmaOrdered By: Elizabeth Alvarado on 05-07-2022 Protein [Mass/Vol] 7.6 g/dL 6.1-7.9 [facility] RBC Auto (Bld) [#/Vol]Ordere d By: Elizabeth Alvarado on 05-07-2022 RBC (Bld) [#/Vol] 5.72 10*6/uL 3.60-5.00 [facility] Serum or plasma alanine ulloa otransferase measurement without P-5'-P (enzymatic activiOrdered By: Elizabeth Alvarado on 05-07-2022 ALT No additional P-5'-P [Catalytic activity/Vol] 61 U/L 10-60 [facility] Serum or plasma albumin/glob ulin mass ratioOrdered By: Elizabeth Alvarado on 05-07-2022 Albumin/Globulin [Mass ratio] 1.1 {ratio} [facility] Serum or plasma anion gap de terminationOrdered By: Elizabeth Alvarado on 05-07-2022 Anion gap [Moles/Vol] 11.2 mmol/L 6.0-15.0 [facility] Serum or plasma high density lipoprotein (HDL) cholesterol measurementOrdered By: Elizabeth Alvarado on 05-07-2022 Cholesterol in HDL [Mass/Vol] 58 mg/dL 35-85 [facility] Comment on above: HDL CHOL ATP-III CLA SSIFICATION Cardiovascular RiskHDL > or equal to 60 mg/dL LOWHDL < 40 mg/dL HIGH Serum or plasma total choles terol/high density lipoprotein (HDL) cholesterol mass ratOrdered By: Elizabeth Alvarado on 05-07-2022 Cholesterol.total/Choles terol in HDL [Mass ratio] 3.1 {ratio} <5.0 [facility] Sodium [Moles/volume] in Ser um or PlasmaOrdered By: Elizabeth Alvarado on 05-07-2022 Sodium [Moles/Vol] 135 mmol/L 136-146 [facility] TSH DL <= 0.005 mIU/L QnOrde red By: Elizabeth Alvarado on 05-07-2022 TSH Qn 4.21 m[IU]/L 0.45-5.33 [facility] Triglyceride [Mass/volume] i n Serum or PlasmaOrdered By: Elizabeth Alvarado on 05-07-2022 Triglyceride [Mass/Vol] 103 mg/dL 35-149 [facility] Comment on above: TRIG ATP III CLASSIF ICATIONTRIG less than 150 mg/dL NormalTRIG 150-199 mg/dL Borderline highTRIG 200-500 mg/dL High TRIG greater than 500 mg/dL Very highStandard traceable to the Center for Disease Conrtrol and Prevention (CDC) test method. Urea nitrogen [Mass/volume] in Serum or PlasmaOrdered By: Elizabeth Alvarado on 05-07-2022 Urea nitrogen [Mass/Vol] 14 mg/dL 9-23 [facility] WBC Auto (Bld) [#/Vol]Ordere d By: Elizabeth Alvarado on 05-07-2022 WBC (Bld) [#/Vol] 7.9 10*3/uL 3.8-11.6 [facility] Basophils Auto (Bld) [#/Vol] Ordered By: Tyler Villeda on 04-13-2022 Basophils (Bld) [#/Vol] 0.1 10*3/uL 0.0-0.2 [facility] Basophils/100 WBC Auto (Bld) Ordered By: Tyler Villeda on 04-13-2022 Basophils/100 WBC (Bld) 0.6 % . [facility] C reactive protein [Mass/vol ume] in Serum or PlasmaOrdered By: Tyler Villeda on 04-13-2022 CRP [Mass/Vol] 2.1 mg/dL 0.0-1.0 [facility] Eosinophils Auto (Bld) [#/Vo l]Ordered By: Tyler Villeda on 04-13-2022 Eosinophils (Bld) [#/Vol] 0.2 10*3/uL 0.0-0.45 [facility] Eosinophils/100 WBC Auto (Bl d)Ordered By: Tyler Villeda on 04-13-2022 Eosinophils/100 WBC (Bld) 2.0 % . [facility] Erythrocyte distribution wid th Auto (RBC) [Ratio]Ordered By: Tyler Villeda on 04-13-2022 Erythrocyte distribution width (RBC) [Ratio] 17.6 % 11.9-15.3 [facility] Erythrocyte sedimentation ra te by Photometric methodOrdered By: Tyler Villeda on 04-13-2022 ESR Photometric method (d) [Velocity] 54 mm/hr 0-29 [facility] Hematocrit Auto (Bld) [Volum e fraction]Ordered By: Tyler Villeda on 04-13-2022 Hematocrit (Bld) [Volume fraction] 44.4 % 34.0-46.4 [facility] Hemoglobin [Mass/volume] in BloodOrdered By: Tyler Villeda on 04-13-2022 Hemoglobin (Bld) [Mass/Vol] 14.3 g/dL 11.8-15.4 [facility] Leukocytes [#/volume] correc silverio for nucleated erythrocytes in Blood by Automated counOrdered By: Tyler Villeda on 04-13-2022 WBC corrected for nucl RBC Auto (Bld) [#/Vol] 8.6 10*3/uL 3.8-11.6 [facility] Lymphocytes Auto (Bld) [#/Vo l]Ordered By: Tyler Villeda on 04-13-2022 Lymphocytes (Bld) [#/Vol] 2.9 10*3/uL 1.00-4.8 [facility] Lymphocytes/100 WBC Auto (Bl d)Ordered By: Tyler Villeda on 04-13-2022 Lymphocytes/100 WBC (Bld) 33.6 % . [facility] MCH Auto (RBC) [Entitic mass ]Ordered By: Tyler Villeda on 04-13-2022 MCH (RBC) [Entitic mass] 24.9 pg 24.7-34.3 [facility] MCHC Auto (RBC) [Mass/Vol]Or dered By: Tyler Villeda on 04-13-2022 MCHC (RBC) [Mass/Vol] 32.2 g/dL 32.0-35.0 [facility] MCV Auto (RBC) [Entitic vol] Ordered By: Tyler Villeda on 04-13-2022 MCV (RBC) [Entitic vol] 77.4 fL 80-100 [facility] Monocytes Auto (Bld) [#/Vol] Ordered By: Tyler Villeda on 04-13-2022 Monocytes (Bld) [#/Vol] 0.9 10*3/uL 0.0-0.8 [facility] Monocytes/100 WBC Auto (Bld) Ordered By: Tyler Villeda on 04-13-2022 Monocytes/100 WBC (Bld) 10.0 % . [facility] Neutrophils Auto (Bld) [#/Vo l]Ordered By: Tyler Villeda on 04-13-2022 Neutrophils (Bld) [#/Vol] 4.6 10*3/uL 1.8-7.7 [facility] Neutrophils/100 WBC Auto (Bl d)Ordered By: Tyler Villeda on 04-13-2022 Neutrophils/100 WBC (Bld) 53.8 % . [facility] Nucleated erythrocytes [Pres ence] in Blood by Automated countOrdered By: Tyler Villeda on 04-13-2022 Nucleated RBC Auto Ql (Bld) 0.1 /100{WBC} 0-0.5 [facility] Platelet mean volume Auto (B ld) [Entitic vol]Ordered By: Tyler Villeda on 04-13-2022 Platelet mean volume (Bld) [Entitic vol] 9.1 fL 6.3-10.7 [facility] Platelets Auto (Bld) [#/Vol] Ordered By: Tyler Villeda on 04-13-2022 Platelets (Bld) [#/Vol] 296 10*3/uL 150-450 [facility] RBC Auto (Bld) [#/Vol]Ordere d By: Tyler Villeda on 04-13-2022 RBC (Bld) [#/Vol] 5.73 10*6/uL 3.60-5.00 [facility] WBC Auto (Bld) [#/Vol]Ordere d By: Tyler Villeda on 04-13-2022 WBC (Bld) [#/Vol] 8.6 10*3/uL 3.8-11.6 [facility] Serum or plasma follitropin measurement [...] on 12-03-2021 TSH Qn 4.23 m[IU]/L 0.45-5.33 [facility] Total estrogen measurementOr dered By: Elizabeth Alvarado on 12-03-2021 Estrogen [Mass/Vol] 83 pg/mL . [facility] Comment on above: Prepubertal < 40 Female Cycle: 1-10 Days 16 - 328 11-20 Days 34 - 501 21-30 Days 48 - 350 Post-Menopausal 40 - 244 Performed at: - [address] [id number] Chief Executive Officer: Virgie Isaac MD, Phone: [phone] Coding Summary.on 01-26-2019 Coding Summary. CODING DATE: 019 FINAL [facility] STATUS: Home (Routine DC) PAYOR: Medicare APC DESCRIPTION 5119 Level 3 Musculoskeletal Procedures ADMIT DX: REASON FOR VISIT DX: M76.61 Achilles tendinitis, right leg FINAL DX: PRINCIPAL: M76.61 Achilles tendinitis, right leg SECONDARY: M24.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, right ankle I10 Essential (primary) hypertension J45.909 Unspecified asthma, uncomplicated K21.9 Gastro-esophageal reflux disease without esophagitis Z79.899 Other halfway (current) drug therapy PYMT PROC APC STAT DESCRIPTION DOCTOR NAME DATE 87756 511 J1 Tenotomy, percutaneous, Thuan Travis DPM 01/24/2019 Achilles tendon (separate procedure); general anesthesia RT Right side (used to identify procedures performed on the right side of the body) 84441 Anesthesia for Shahab Almanzar Jr., DO 01/24/2019 [...] Revised Date Saved: 01/26/2019 11:32 am Normal [facility] In[facility] Patient Summaryon 01-24-2019 Inpatient Patient Summary [facility] Clinical Discharge Instructions PERSON INFORMATION Name: GEETA SHELTON PHYSICIANS Admitting Physician: Thuan Travis DPM Attending Physician: Thuan Travis DPM PCP: Nichole Caballero Discharge Diagnosis: Comment: PATIENT EDUCATION INFORMATION Instructions: Post Op Patient Instructions - FT (Custom); Foot Cryocuff Patient Instructions - FT (Custom); Thaddeus - Post Operative Instructions (Revised 12/20/13) (Custom) ([id number]) Medication Leaflets: Follow up: MEDICATION LIST Comment: Normal [facility] [place] 01-24-2019 Anion gap [Moles/Vol] 14 mmol/L Normal 6-16 [facility] Comment on above: Performed By: #### 2 [id number], [id number], [id number], [id number], [id number], [id number] #### [facility] [address] [place] [address] Chloride [Moles/Vol] 107 mmol/L Normal 101-111 [facility] Comment on above: Performed By: #### 2 [id number], [id number], [id number], [id number], [id number], [id number] #### [facility] [address] [place] [address] CO2 [Moles/Vol] 23 mmol/L Normal 21-31 [facility] Comment on above: Performed By: #### 2 428133, 4656579, 6623012, [id number], 7595273, [id number] #### [facility] [address] [place] [address] Potassium [Moles/Vol] 4.9 mmol/L Normal 3.5-5.3 [facility] Comment on above: Performed By: #### 2 677388, 8731548, 7399279, [id number], [id number], [id number] #### [facility] [address] [place] [address] Sodium [Moles/Vol] 139 mmol/L Normal 135-145 [facility] Comment on above: Performed By: #### 2 040420, [id number], 6602535, [id number], [id number], [id number] #### [facility] [address] [place] [address] Main OR Intraoperative Recor don 01-24-2019 Main OR Intraoperative Record IntraOp Document Type FT Summary Primary Physician: Thuan Travis DPM Finalized Date/Time: 01/24/19 11:33:24 Pt. Name: GEETA SHELTON/Sex: 1970 Female Med Rec #: [id number] Physician: Thuan Travis DPM Financial #: [id number] Pt. Type: A Room/Bed: [facility] Admit/Disch: 01/24/19 07:58:48 - Institution: [...] Cheryl Role Performed Anesthesiologist Surgeon - Primary ENTERTAINMENT MUSICIAN Appetizer Packer Time In 01/24/19 08:48:00 01/24/19 09:00:00 01/24/19 [...] Jani AGUILAR, Kallie Yuen RN, Zuly Duarte SYSTEM DEVELOPMENT ENGINEER, Prashant Panda Role Performed Milk Bottler - Primary Milk Bottler - Other Scrub - Primary Time In [...] RN, Emily A, Schmitz RN, Gerald Veliz SYSTEM DEVELOPMENT ENGINEER, Prashant M Time Out Complete 01/24/19 08:59:00 [...] AGUILAR, CNOR, Alpa AGUILAR, Zuly Luna, Gerald SYSTEM DEVELOPMENT ENGINEER, R, Gerald SYSTEM DEVELOPMENT ENGINEER, Prashant Panda Outcomes Met? Yes Yes Last [...] to transfer/transport General Comments: REPORT GIVEN TO RADIOLOGICAL ENGINEERRN. Cy PRIDE RN Dressing/Packing FT Pre-Care Text: [...] safely administered during the perioperative period For [facility] please see scanned medication reconcilliation form for medications used at the field during the procedure. Temperature Control Entry 1 Temperature Control BLANKET MISTRAL AIR Quantity 1 Aid TORSO [[id number]][F] Fluid/[place] Unit Mistral warming system Setting HIGH/43 Body Site Upper anterior torso Last Modified By: Kallie Gunter RN 01/24/19 08:46:43 Case Comments Finalized By: Maye Silverio CST Document Signatures Signed By: Kallie Gunter RN 01/24/19 09:26 Maye Silverio CST 01/24/19 11:33 Normal [facility] Main OR PACU I [facility] Main OR PACU I Record PACU Phase I Docum ent Type FT Summary Primary Physician: Thuan Travis DPM Finalized Date/Time: 01/24/19 10:08:45 Pt. Name: GEETA SHELTON/Sex: 1970 Female Med Rec #: [id number] Physician: Thuan Travis DPM Financial #: [id number] Pt. Type: A Room/Bed: Admit/Disch: 01/24/19 07:58:48 [...] By: Swathi Carr RN 01/24/19 10:08 Normal [facility] Main OR PACU II [facility] Main OR PACU II Record PACU Phase II Doc ument Type FT Summary Primary Physician: Thuan Travis DPM Finalized Date/Time: 01/24/19 13:09:21 Pt. Name: GEETA SHELTON/Sex: 1970 Female Med Rec #: [id number] Physician: Thuan Travis DPM Financial #: [id number] Pt. Type: A Room/Bed: [facility] Admit/Disch: 01/24/19 07:58:48 - Institution: [...] Signed By: Keeley Putnam LPN 01/24/19 13:09 [facility] [facility] OR Preoperative Recordo n 01-24-2019 Main OR Preoperative Record PreOp Document Type FT Summary Primary Physician: Thuan Travis DPM Number: [id number] Finalized Date/Time: 01/24/19 09:12:07 Pt. Name: GEETA SHELTON Austyn/Sex: 1970 Female Med Rec #: [id number] Physician: Thuan Travis DPM Financial #: [id number] Pt. Type: A Room/Bed: [place] [address] Admit/Disch: 01/24/19 07:58:48 - Institution: Case Times [...] By: Kallie Gunter RN 01/24/19 09:12 Normal [facility] Operative Reporton 10--201 9 Operative Report Date [...] visit. Thuan Travis D.P.M. aek Dictated: 01/24/2019 #[id number] Typed: 01/24/2019 #[id number] cc: Thuan Travis D.P.M. [facility] Comment on above: Result Comment: Elec tronically Signed By: Thuan Travis DPM\.br\Date and Time Signed: 01/24/19 10:24 EDT Patient Education - Texton 1 Patient Education - Text (Inserted Image . Unable to display) [place], [place] Thuan Travis DPM, FACFAS POST OPERATIVE [...] feel free to call the doctor at: [phone] or [phone] Travis paged. ___ Patient signature Date ___ Dr. Anand Sauer DPM, FACFAS Date Revised: 06-02 [facility] Progress Note-Physicianon Progress Note-Physician Patient: GEETA [...] 1 ml. Complications: None. Anesthesia type: General. [facility] Comment on above: Result Comment: Elec tronically Signed By: Thuan Travis DPM\.br\Date and Time Signed: 01/24/19 09:27 EDT Coding Summary.on 01-12-2019 Coding Summary. CODING DATE: 019 FINAL [facility] STATUS: Home (Routine DC) PAYOR: Medicare [...] CphT Date Saved: 01/12/2019 11:10 am Normal [facility] BUNon 01-11-2019 Urea nitrogen [Mass/Vol] 29 mg/dL High 5-21 [facility] Comment on above: Performed By: #### 2 [id number], 3840889, 7403412, 90312597, 0856525, 7207406 #### [facility] [address] [place] [address] CBC w/Indiceson 01-11-2019 Erythrocyte distribution width (RBC) [Ratio] 16.1 % High 10.9-14.2 [facility] Comment on above: Performed By: #### 1 9396497, 5649761, 2248420, 3673055, 0753296 #### [facility] [address] [place] [address] Hematocrit (Bld) [Volume fraction] 42.1 % Normal 34.0-46.0 [facility] Comment on above: Performed By: #### 1 6182967, 7925738, 1407962, 3438106, 5757694 #### [facility] [address] [place] [address] Hemoglobin (Bld) [Mass/Vol] 13.8 g/dL Normal 12.0-16.0 [facility] Comment on above: Performed By: #### 1 8328599, 4014227, 9262132, 1283012, 9128517 #### [facility] [address] [place] [address] MCH (RBC) [Entitic mass] 25.8 pg Low 27.0-34.0 [facility] Comment on above: Performed By: #### 1 6323433, 8714137, 4347640, 5019429, 6597451 #### [facility] [address] [place] [address] MCHC (RBC) [Mass/Vol] 32.8 g/dL Low 33.3-35.7 [facility] Comment on above: Performed By: #### 1 6343703, 9751878, 9358864, 0732182, 9611742 #### [facility] [address] [place] [address] MCV (RBC) [Entitic vol] 78.5 fL Low 80.0-100.0 [facility] Comment on above: Performed By: #### 1 9253973, 8260291, 1105544, 5171644, 6592220 #### [facility] [address] [place] [address] Platelet mean volume (Bld) [Entitic vol] 9.9 fL Normal 6.4-10.8 [facility] Comment on above: Performed By: #### 1 1414053, 7420251, 4717555, 6877885, 5288973 #### [facility] [address] [place] [address] Platelets (Bld) [#/Vol] 283.0 E9/L Normal 150. 0-500. 0 [facility] Comment on above: Performed By: #### 1 1947761, 8750509, 5453592, 0714223, 9747711 #### [facility] [address] [place] [address] RBC (Bld) [#/Vol] 5.4 E12/L Normal 4.3-5.9 [facility] Comment on above: Performed By: #### 1 7123018, 0230100, 2850800, 7269863, 5345988 #### [facility] [address] [place] [address] WBC corrected for nucl RBC Auto (Bld) [#/Vol] 8.6 E9/L Normal 4.0-11.0 [facility] Comment on above: Performed By: #### 1 4430064, 7353285, 0599899, 3300743, 2324095 #### [facility] [address] [place] [address] Creatinineon 01-11-2019 Creatinine [Mass/Vol] 1.0 mg/dL Normal 0.5-1.3 [facility] Comment on above: Performed By: #### 2 441642, 1128870, 0615279, 01097620, 9999680, 2501378 #### [facility] [address] [place] [address] Glucoseon 01-11-2019 Glucose [Mass/Vol] 95 mg/dL Normal 55-199 [facility] Comment on above: Performed By: #### 1 6064121, 5256195, 6143618, 7768007, 2256857 #### [facility] [address] [place] [address] eGFRon 01-11-2019 GFR/1.73 sq M predicted among blacks MDRD (S/P/Bld) [Vol rate/Area] mL/min/{1.73_m2} Normal >=59 [facility] Comment on above: Order Comment: Order added by Discern Expert. Result Comment: eGFR is race adjusted. AA=. Performed By: #### 2 135160, 6561703, 6078339, 64250862, 7629880, 3842161 #### [facility] [address] [place] [address] GFR/1.73 sq M predicted among non-blacks MDRD (S/P/Bld) [Vol rate/Area] 59 mL/min/1.73 m2 Normal >=59 [facility] Comment on above: Order Comment: Order added by Discern Expert. Result Comment: Sole Le[employer] Cutting Machine Operator stefanie kidney disease could be indicated at eGFR's of less than 60 mL/min/1.73m2. Kidney failure is indicated at less than 15 mL/min/1.73m2. Performed By: #### 2 872159, 6748244, 9002968, 98473276, 4247135, 8679110 #### [facility] [address] [place] [address] Coding Summary.on 12-15-2018 Coding Summary. CODING DATE: 019 FINAL [facility] STATUS: Home (Routine DC) PAYOR: Medicare [...] CphT Date Saved: 12/15/2018 01:36 pm Normal [facility] BUNon 12-14-2018 Urea nitrogen [Mass/Vol] 19 mg/dL Normal 5-21 [facility] Comment on above: Performed By: #### 2 906890, 4294771, 4979954, 13955366, 1025687, 3457526 #### [facility] [address] [place] [address] CBC w/Indiceson 12-14-2018 Erythrocyte distribution width (RBC) [Ratio] 17.1 % High 10.9-14.2 [facility] Comment on above: Performed By: #### 2 554880, 6612734, 0370519, 05146737, 0867834, 3694480 #### [facility] [address] [place] [address] Hematocrit (Bld) [Volume fraction] 41.5 % Normal 34.0-46.0 [facility] Comment on above: Performed By: #### 2 924404, 8315176, 1669359, 54338956, 6954506, 5425076 #### [facility] [address] [place] [address] Hemoglobin (Bld) [Mass/Vol] 13.2 g/dL Normal 12.0-16.0 [facility] Comment on above: Performed By: #### 2 680660, 4628392, 9362171, 96902002, 3790810, 5150378 #### [facility] [address] [place] [address] MCH (RBC) [Entitic mass] 25.0 pg Low 27.0-34.0 [facility] Comment on above: Performed By: #### 2 925302, 1465898, 1812262, 14387837, 1066494, 4938814 #### [facility] [address] [place] [address] MCHC (RBC) [Mass/Vol] 31.7 g/dL Low 33.3-35.7 [facility] Comment on above: Performed By: #### 2 222707, 3691894, 0343944, 89298227, 1160914, 6118898 #### [facility] [address] [place] [address] MCV (RBC) [Entitic vol] 78.7 fL Low 80.0-100.0 [facility] Comment on above: Performed By: #### 2 330422, 6883707, 4585580, 44088193, 7178135, 5506788 #### [facility] [address] [place] [address] Platelet mean volume (Bld) [Entitic vol] 9.4 fL Normal 6.4-10.8 [facility] Comment on above: Performed By: #### 2 471034, 4983074, 9588847, 07168920, 2382993, 7784430 #### [facility] [address] [place] [address] Platelets (Bld) [#/Vol] 268.0 E9/L Normal 150. 0-500. 0 [facility] Comment on above: Performed By: #### 2 057761, 0856773, 2209997, 36813839, 9292474, 8272399 #### [facility] [address] [place] [address] RBC (Bld) [#/Vol] 5.3 E12/L Normal 4.3-5.9 [facility] Comment on above: Performed By: #### 2 209304, 4340900, 5815209, 64743059, 3441118, 7605320 #### [facility] [address] [place] [address] WBC corrected for nucl RBC Auto (Bld) [#/Vol] 10.6 E9/L Normal 4.0-11.0 [facility] Comment on above: Performed By: #### 2 817923, 4663587, 9951230, 12704532, 1348596, 8241122 #### [facility] [address] [place] [address] Creatinineon 12-14-2018 Creatinine [Mass/Vol] 0.7 mg/dL Normal 0.5-1.3 [facility] Comment on above: Performed By: #### 2 244684, 1790504, 7025741, 68076642, 2759648, 7663335 #### [facility] [address] [place] [address] Glucoseon 12-14-2018 Glucose [Mass/Vol] 138 mg/dL Normal 55-199 [facility] Comment on above: Performed By: #### 2 182175, 9998270, 3380864, 46560464, 4112805, 0453146 #### [facility] [address] [place] [address] Lyteson 12-14-2018 Anion gap [Moles/Vol] 17 mmol/L High 6-16 [facility] Comment on above: Performed By: #### 2 491130, 8680871, 9955896, 39751213, 5859279, 8810996 #### [facility] [address] [place] [address] Chloride [Moles/Vol] 95 mmol/L Low 101-111 [facility] Comment on above: Performed By: #### 2 583421, 2337812, 0170944, 85330780, 5751695, 7875580 #### [facility] [address] [place] [address] CO2 [Moles/Vol] 26 mmol/L Normal 21-31 [facility] Comment on above: Performed By: #### 2 562056, 0799971, 6465837, 79199115, 9217530, 3254033 #### [facility] [address] [place] [address] Potassium [Moles/Vol] 3.9 mmol/L Normal 3.5-5.3 [facility] Comment on above: Performed By: #### 2 191548, 6525507, 9525784, 27916997, 0040892, 6095281 #### [facility] [address] [place] [address] Sodium [Moles/Vol] 134 mmol/L Low 135-145 [facility] Comment on above: Performed By: #### 2 185931, 1972438, 1726581, 15546893, 6636514, 7512463 #### [facility] [address] [place] [address] XR Chest 2 Viewson 9 XR Chest [...] MD Transcribed by: MAGEN Technologist: KRISTYN Thornton [facility] eGFRon 12-14-2018 GFR/1.73 sq M predicted among blacks MDRD (S/P/Bld) [Vol rate/Area] mL/min/{1.73_m2} Normal >=59 [facility] Comment on above: Order Comment: Order added by Discern Expert. Result Comment: eGFR is race adjusted. AA=. Performed By: #### 2 673129, 9426332, 7486696, 83849789, 0063002, 3957120 #### [facility] [address] [place] [address] GFR/1.73 sq M predicted among non-blacks MDRD (S/P/Bld) [Vol rate/Area] mL/min/{1.73_m2} Normal >=59 [facility] Comment on above: Order Comment: Order added by Discern Expert. Result Comment: Sole Le[employer] Cutting Machine Operator stefanie kidney disease could be indicated at eGFR's of less than 60 mL/min/1.73m2. Kidney failure is indicated at less than 15 mL/min/1.73m2. Performed By: #### 2 822206, 9225281, 2330886, 79725965, 5911128, 3494712 #### [facility] [address] [place] [address] Vital Signs Date Time Vital Sign Value Performing Clinician Facility 09-30-2023 09:36-0400 Body height 165.1 cm PHYSICIAN [facility] 09-30-2023 09:36-0400 Body mass index (BMI) [Ratio] 46.2 kg/m2 PHYSICIAN [facility] 09-30-2023 09:36-0400 Body temperature 97.6 [degF] PHYSICIAN NO [facility] 09-30-2023 09:36-0400 Body weight 126.09 kg PHYSICIAN NO [facility] 09-30-2023 09:36-0400 Diastolic blood pressure 85 mm[Hg] PHYSICIAN [facility] 09-30-2023 09:36-0400 Heart rate 87 /min PHYSICIAN NO [facility] 09-30-2023 09:36-0400 Respiratory rate 20 /min PHYSICIAN NO [facility] 09-30-2023 09:36-0400 SaO2% (BldA) [Mass fraction] 98 % PHYSICIAN [facility] 09-30-2023 09:36-0400 Systolic blood pressure 139 mm[Hg] PHYSICIAN [facility] 03-02-2023 10:45-0500 Body height 165.1 cm Tyler Jean Other [employer] Other 03-02-2023 10:45-0500 Body mass index (BMI) [Ratio] 44.76 kg/m2 Tyler Jean Other [employer] Other 03-02-2023 10:45-0500 Body temperature 96.7 [degF] Tyler Mcnamaratyler Other [employer] Other 03-02-2023 10:45-0500 Body weight 122.02 kg Tyler Jean Other [employer] Other 03-02-2023 10:45-0500 Diastolic blood pressure 82 mm[Hg] Tyler Ted Other [employer] Other 03-02-2023 10:45-0500 Respiratory rate 18 /min Tyler Mcnamaratyler Other [employer] Other 03-02-2023 10:45-0500 SaO2% (BldA) [Mass fraction] 96 % Tyler Mcnamaratyler Other [employer] Other 03-02-2023 10:45-0500 Systolic blood pressure 136 mm[Hg] Tyler Mcnamaratyler Other [employer] Other 09-21-2022 09:11-0400 Body weight 128.72 kg SHOP WORKER Elizabethshaun Alvarado Work Phone: [facility] 09-21-2022 09:11-0400 Diastolic blood pressure 91 mm[Hg] SHOP WORKER Elizabeth Myerholtz Work Phone: [facility] 09-21-2022 09:11-0400 Heart rate 88 /min SHOP WORKER Elizabeth Myerholtz Work Phone: [facility] 09-21-2022 09:11-0400 Respiratory rate 20 /min SHOP WORKER Elizabeth Myerholtz Work Phone: [facility] 09-21-2022 09:11-0400 SaO2% (BldA) [Mass fraction] 96 % 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 WORKER Elizabeth Myerholtz Work Phone: [facility] 09-21-2022 09:11-0400 Systolic blood pressure 145 mm[Hg] RHEA Alvarado Work Phone: [facility] 08-16-2022 13:57-0400 Body temperature 98 [degF] RHEA Alvarado Work Phone: [facility] 08-16-2022 13:42-0400 Body height 165.1 cm RHEA Alvarado Work Phone: [facility] 07-03-2022 08:14-0500 Body temperature 97.9 [degF] Acosta Schafer MD Work Phone: [employer] 07-03-2022 08:14-0500 Diastolic blood pressure 70 mm[Hg] Acosta Schafer MD Work Phone: [employer] 07-03-2022 08:14-0500 Heart rate 83 /min Acosta Schafer MD Work Phone: [employer] [facility] 07-03-2022 08:14-0500 Respiratory rate 18 /min Acosta Schafer MD Work Phone: [employer] 07-03-2022 08:14-0500 SaO2% (BldA) [Mass fraction] 98 % Acosta Schafer MD Work Phone: [employer] 07-03-2022 08:14-0500 Systolic blood pressure 129 mm[Hg] Acosta Schafer MD Work Phone: [email or web address] 07-02-2022 09:45-0500 Body mass index (BMI) [Ratio] 50.66 kg/m2 Acosta Schafer MD Work Phone: [email or web address] [facility] 07-02-2022 09:45-0500 Body weight 129.73 kg Acosta Schafer MD Work Phone: [employer] 06-24-2022 11:20-0500 Body height 160 cm Mloz Rn [employer] 06-24-2022 11:20-0500 Body mass index (BMI) [Ratio] 50.79 kg/m2 [facility] 06-24-2022 11:20-0500 Body temperature 97.9 [degF] [facility] 06-24-2022 11:20-0500 Body weight 130.05 kg [facility]n [facility] 06-24-2022 11:20-0500 Diastolic blood pressure 87 mm[Hg] [facility]loz [facility]n [facility] 06-24-2022 11:20-0500 Heart rate 73 /min Mloz Rn [facility] 06-24-2022 11:20-0500 Respiratory rate 16 /min [facility]loz [facility]n [facility] 06-24-2022 11:20-0500 SaO2% (BldA) [Mass fraction] 98 % [facility]loz Rn [facility] 06-24-2022 11:20-0500 Systolic blood pressure 142 mm[Hg] Mloz Rn [facility] 05-18-2022 08:46-0500 Body height 165.1 cm Acosta Schafer MD [facility] Phone: [facility] Work Phone: 05-18-2022 08:46-0500 Body mass index (BMI) [Ratio] 45.93 kg/m2 Acosta Schafer MD Work Phone: [facility] Work Phone: 05-18-2022 08:46-0500 Body surface area Derived from formula 2.27 m2 Acosta Schafer MD Work Phone: [facility] Work Phone: 05-18-2022 08:46-0500 Body weight 125.19 kg Acosta Schafer MD Work Phone: [facility] Work Phone: Encounters Encounter Date Encounter Type Care Provider Facility Start: 09-30-2023 End: 09-30-2023 ambulatory PHYSICIAN [facility] Work Phone: Start: 09-30-2023 End: 09-30-2023 Patient encounter procedure PHYSICIAN NO [facility] Ambulatory Work Phone: Start: 09-30-2023 Registered Recurring PHYSICIAN NO [facility] Acute Work Phone: Start: 09-30-2023 ambulatory Elizabeth Alvarado F acility:[facility] Start: 09-07-2023 End: 09-07-2023 Patient encounter procedure PHYSICIAN NO [facility] [place] Work Phone: Start: 08-24-2023 End: 08-24-2023 ambulatory RHEA Alvarado Work Phone: [facility] Work Phone: Start: 08-24-2023 End: 08-24-2023 Patient encounter procedure SHOP WORKERNohelia Alvarado Work Phone: [facility] Start: 08-24-2023 End: 08-24-2023 Departed Referred RHEA Alvarado Work Phone: [facility] Start: 05-10-2023 End: 05-10-2023 ambulatory SHOP WORKERNohelia Alvarado Work Phone: [facility] Work Phone: Start: 05-10-2023 End: 05-10-2023 Patient encounter procedure SHOP WORKER Elizabeth Alvarado Work Phone: [facility] Work Phone: Start: 03-02-2023 End: 03-02-2023 ambulatory Tyler Jean Other [employer] Other Start: 03-02-2023 Office outpatient vi sit 25 minutes Tyler Jean [facility] Vascular Surgery Start: 02-14-2023 End: 02-14-2023 ambulatory SHOP WORKERNohelia Alvarado Work Phone: [facility] Work Phone: Start: 02-14-2023 End: 02-14-2023 Patient encounter procedure RHEA Alvarado Work Phone: [facility]-Ultrasound [facility] [place] Work Phone: Start: 01-26-2023 [facility] visit new patient Sindy rubio [facility] Vascular Surgery Start: 01-26-2023 End: 01-26-2023 ambulatory SHOP WORKERNohelia Alvarado Work Phone: [employer] Other Start: 01-26-2023 End: 01-26-2023 Patient encounter procedure RHEA Alvarado Work Phone: [facility]-XRay [facility] [place] Work Phone: Start: 12-29-2022 Patient encounter procedure [facility] Schafer MD [facility] Work Phone: Start: 12-29-2022 ambulatory Provider Pending Facili ty:[id number] Start: 11-25-2022 End: 11-25-2022 Patient encounter procedure RHEA Alvarado Work Phone: [facility]-Respiratory Therapy Work Phone: Start: 09-22-2022 Patient encounter procedure Acosta Schafer MD Work [facility]: [facility] Work Phone: Start: 09-22-2022 ambulatory Provider Pending Facili ty:[id number] Start: 09-21-2022 End: 09-21-2022 ambulatory SHOP WORKER Elizabeth Alvarado Work Phone: [facility] Work Phone: Start: 09-21-2022 End: 09-21-2022 Registered Recurring RHEA Johnson Christiano Work Phone: [facility] Work Phone: Start: 08-11-[address] Acosta Alva yaneli Humble Facility:[id number] Start: 08-04-2022 End: 08-04-2022 Discharged Recurring RHEA Fraserjackie Alvarado Work Phone: [facility]-Physical Therapy [address] Start: 07-23-2022 End: 07-23-2022 ambulatory RHEA Hurley Christiano Work Phone: [facility] Work Phone: Start: 07-23-2022 End: 07-23-2022 Patient encounter procedure RHEA Fraserjackie Alvarado Work Phone: [facility]-Lab [facility] [place] Work Phone: Start: 07-16-2022 Telephone encounter [facility]osta Crews MD [facility] Work Phone: Start: 07-14-2022 Patient encounter procedure Acosta Schafer MD Work Phone: [facility] Work Phone: Start: 07-14-[address] Acosta Schafer Facility:[id number] Start: 07-07-2022 AUDIT Acosta sow MD Work Phone: [facility] Work Phone: Start: 07-01-2022 ambulatory Provider Pending Facili ty:[id number] Start: 07-01-2022 End: 07-03-2022 Evaluation and management of inpatient ACOSTA SCHAFER [facility] Start: 07-01-2022 SURGNONUH, Provider: Acosta Schafer, Status: Pen, Time: 7:00 AM Natali Tyson PT, DPT Work Phone: [facility] Work Phone: Start: 07-01-2022 End: 07-03-2022 Evaluation and management of inpatient Acosta Schafer MD Work Phone: [facility] Comment on above: 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 Merrill martinez [facility] Facility:[id number] Start: 06-25-2022 Encounter for other preprocedural examination Mr. Merrill Hernandez [facility] Start: 06-24-2022 End: 06-29-2022 ambulatory ACOSTA SCHAFER [facility] Start: 06-24-2022 End: 06-28-2022 Subsequent hospital visit by physician Juan Manzano Rm [facility] Start: 05-18-2022 Patient encounter procedure Acosta Schafer MD Work Phone: [facility] Work Phone: Start: 05-18-[address] Acosta Schafer Facility:[id number] Start: 05-07-2022 End: 05-07-2022 Patient encounter procedure RHEA Alvarado Work Phone: [facility] Work Phone: Start: 04-13-2022 End: 04-13-2022 ambulatory RHEA Alvarado Work Phone: [facility] Work Phone: Start: 04-13-2022 End: 04-13-2022 Patient encounter procedure RHEA Alvarado Work Phone: [facility]Lab [facility] [place] Start: 12-17-2021 End: 12-17-2021 Patient encounter procedure RHEA Morinsaige Work Phone: [facility]-Nuc Med [facility] [place] Start: 12-07-2021 End: 12-07-2021 Patient encounter procedure RHEA Morinbijupaula Work Phone: [facility]-Ultrasound [facility] [place] Start: 12-03-2021 End: 12-03-2021 Departed Referred RHEA Johnson Christiano Work Phone: [facility] Procedures Date Procedure Procedure [...] TO MG FOR LOW K Arya Coronado [employer]OP WORKER - FRONT COUNTER CLERK Work Phone: Start: 07-03-2022 Blood count complete automated Arya Coronado [employer] WORKER - FRONT COUNTER CLERK Work Phone: Start: 07-02-2022 Dup-scan xtr veins unilateral/limited study Carlos A Hou DO Work Phone: Start: 07-02-2022 BASIC METABOLIC PANE L W/ REFLEX TO MG FOR LOW K Arya Coronado [employer]OP WORKER - FRONT COUNTER CLERK Work Phone: Start: 07-02-2022 Blood count complete automated Arya Coronado [employer]OP WORKER - FRONT COUNTER CLERK Work Phone: Start: 07-01-2022 Radiologic examinati on knee 1/2 views Arya Coronado SHOP WORKER - FRONT COUNTER CLERK Work Phone: Start: 07-01-2022 End: 07-01-2022 Revj [...] Start: 12-17-2021 Radionuclide three-p hase bone study SHOP WORKERNohelia Alvarado Work Phone: Start: 12-07-2021 US scan of thyroid RHEA Alvarado Work Phone: Start: 02-01-2019 Anesthesia consultation Start: 01-24-2019 Anesthesia consultation Plan of Treatment Date Care Activity Detail Author Start: 06-29-2023 FUV, Provider: Acosta Schafer, Status: Pen, Time: 2:15 PM FUV, Provider: Acosta Schafer, Status: Pen, Time: 2:15 PM [facility] [facility] Work Phone: Start: 02-17-2023 Screening for malign ant neoplasm of colon [facility] Start: 12-29-2022 FUV, Provider: Acosta Schafer, Status: Pen, Time: 1:45 PM FUV, Provider: Acosta Schafer, Status: Pen, Time: 1:45 PM [facility] [place] Work Phone: Start: 08-11-2022 FUV, Provider: Acosta Schafer, Status: Pen, Time: 9:45 AM FUV, Provider: Acosta Schafer, Status: Pen, Time: 9:45 AM [facility] [place] Work Phone: Start: 07-23-2022 [facility] Start: 07-14-2022 POV, Provider: Acosta Schafer, Status: Pen, Time: 9:00 AM POV, Provider: Acosta Schafer, Status: Pen, Time: 9:00 AM [facility] [place] Work Phone: Start: 07-01-2022 End: 07-01-2022 Admission to same day surgery center 07/01/2022 Surgery IP Unit Acosta Schafer MD [address] [place] [address] RIGHT KNEE RIGHT TOTAL KNEE REVISION INSTRUMENTATION ANTONELLA FEMORAL & SCIATIC BLOCK [facility] OR Comment on above: RIGHT KNEE RIGHT TOT AL KNEE REVISION INSTRUMENTATION ANTONELLA FEMORAL & SCIATIC BLOCK Start: 07-01-2022 End: 07-01-2022 Revj total knee arthrp w/wo algrft 1 component KNEE TOTAL ARTHROPLASTY REVISION Loosening of unicondylar knee replacement (HCC) 07/01/2022 10:50 AM [facility] Start: 07-01-2022 Subsequent hospital visit by physician 07/01/2022 Hospital Encounter IP Unit Acosta Schafer MD [address] [place] [address] [facility] [place] Start: 07-01-2022 SURGNON, Provider: Acosta Schafer, Status: Pen, Time: 7:00 AM SURGNON, Provider: Acosta Schafer, Status: Pen, Time: 7:00 AM [facility] [place] Work Phone: Start: 06-25-2022 PREADMIT, Provider: Merrill Alejandro, Status: Pen, Time: 1:45 PM PREADMIT, Provider: Merrill Alejandro, Status: Pen, Time: 1:45 PM [facility] Work Phone: Start: 06-25-2022 [id number], Provider : Natali Tyson, Status: Pen, Time: 1:00 PM [id number], Provider: Natali Tyson, Status: Pen, Time: 1:00 PM [facility] [place] [place] Work Phone: Start: 06-24-2022 Annual Wellness Visi t (AWV) Annual Wellness Visit (AWV) [facility] Start: 12-17-2021 Radionuclide three-p hase bone study NM bone 3 phase [facility] Start: 12-17-2021 End: 12-17-2021 Patient encounter procedure Departed [facility] Ctr-Nuc Med [facility] [place] Start: 12-07-2021 US scan of thyroid US thyroid [facility] Start: 12-07-2021 End: 12-07-2021 [facility] [place] Start: 11-23-2021 Influenza vaccination Flu vaccine (# 1) [facility] Start: 05-18-2021 COVID-19 Vaccine (4 - Booster for Moderna series) COVID-19 Vaccine (4 - Booster for Moderna series) [facility] Start: 02-23-2018 Screening for malign ant neoplasm of breast Breast cancer screen [facility] Start: 02-23-2018 Shingles vaccine (1 of 2) Shingles v accine (1 of 2) [facility] Start: 02-23-2013 Screening for malign ant neoplasm of colon [facility] Start: 2008 Lipid panel Lipids [facility] Start: 02-23-2003 Diabetes screen Diabetes screen [facility] Start: 02-23-1998 Screening for malign ant neoplasm of cervix [facility] Start: 02-23-1989 Screening for malign ant neoplasm of cervix Pap smear [facility] Start: 02-23-1987 DTaP/Tdap/Td vaccine (1 - Tdap) DTaP/Tdap/Td vaccine (1 - Tdap) [facility] Start: 02-23-1986 Hepatitis C screening Hepatitis C sc reen [facility] Start: 02-23-1983 HIV screening HIV screen [facility] Start: 1980 Depression Screen Depression Screen [facility] [employer] Start: 1968 COVID-19 Vaccine (#1) COVID-19 Vacci ne (#1) [facility] End: 07-04-2022 Basic Metabolic Panel w/ Reflex to MG Basic Metabolic Panel w/ Reflex to MG Lab Routine Daily for 3 Days starting 07/02/2022 until 07/04/2022, 2 completed [employer] Phone: Comment on above: Daily for 3 Days sta rting 07/02/2022 until 07/04/2022, 2 completed End: 07-04-2022 CBC panel - Blood by Automated count CBC Lab Routine Daily for 3 Days starting 07/02/2022 until 07/04/2022, 2 completed [employer] [facility] Phone: Comment on above: Daily for 3 Days sta rting 07/02/2022 until 07/04/2022, 2 completed Comprehensive metabo lic 2000 panel - Serum or Plasma [facility] Comprehensive metabo lic 2000 panel - Serum or Plasma [facility] IgA [Mass/volume] in Serum or Plasma [facility] IgG [Mass/volume] in Serum or Plasma [facility] IgM [Mass/volume] in Serum or Plasma [facility] Oxygen therapy [[facility] Data Set] Initiate Oxygen Therapy Protocol Respiratory Care Routine Daily until discontinued starting 07/01/2022 [facility] [employer] Phone: Comment on above: Daily until disconti nued starting 07/01/2022 Spirometry panel Incentive tonja metry Respiratory Care Routine Every 2hr while awake until discontinued starting 07/01/2022 [facility] [employer] Phone: Comment on above: Every 2hr while awak e until discontinued starting 07/01/2022 [facility] Immunizations Immunization Date Immunization Notes Care Provider Fa cilirowdy 03-16-2016 influenza virus vaccine, unspecified formulation SHOP WORKER Elizabeth Christiano Work Phone: [facility] 03-16-2016 influenza, injectabl e, quadrivalent, preservative free Sindy Davila Other [facility] [employer] Other Payers Date Payer Category Payer Medicaid [id number] 2022 Self-pay [id number] 2014 Private Health Insurance [id number] 1968 Unknown [id number]. 182 1968 Unknown [id number] [id number]. 182 1968 Unknown [id number] 2.16.840.1.247922.3.579.2. 356 1968 Unknown [id number] 2.16.840.1.984833.3.579.2. 1067 1968 Unknown [id number] 2.16.840.1.812201.3.579.2. 1067 1968 Unknown [id number] 2.16.840.1.967816.3.579.2. 1067 1968 Unknown [id number] 2.16.840.1.079991.3.579.2. 1067 1968 Unknown [id number] 2.16.840.1.533091.3.579.2. 1067 1968 Unknown [id number] 2.16.840.1.304500.3.579.2. 1067 1968 Unknown [id number] 2.16.840.1.703466.3.579.2. 1068 Medicare Medicare [id number] Medicare [id number] Medicare [place] [employer] Dual Adv JRG [id number] Private Health Insurance [employer] [facility] PFFS 1 [id number] Unknown [facility] E DUAL COMPLETE Unknown [id number]. 531 Social History Date Type Detail Facility Start: 06-03-2017 End: 09-21-2022 Tobacco smoking status NHIS Never smoked tobacco (finding) [facility] Start: 1970 Sex Assigned At Female F [facility] Start: 06-24-2022 Tobacco use and exposure Smokeless tobacco non-user [employer] Phone: Start: 06-24-2022 End: 07-02-2022 Alcohol intake Current drinker of alcohol (finding) [facility] Phone: Start: 06-24-2022 Alcohol Comment occasional [facility] Phone: Start: 1970 Sex Assigned At Not on file B ON [facility] Phone: Start: 06-14-2022 End: 06-24-2022 Exposure to SARS-CoV-2 (event) Not sure [facility] Phone: Sex Assigned At Sex Assigned At [facility] [employer] Other Medical Equipment Procedure Code Equipment Code Equipment Origin al Text Equipment Identifier Dates Cement Bioprep S t - [id number] Start: 07-01-2022 Stem Tib [id number] Knee Tot Stbl Joey Roberta Triathlon - [id number] , [id number] FDA Start: 07-01-2022 Clinical Notes [...] of both lower extremities (ICD-10 - I87.303) [employer] Other 10-04-2023 Evaluation note* Encounter Date [...] Bilateral lower extremity edema (ICD-10 - R60.0) [employer] Other 04-24-2023 Consult note Author Zoey Ramirez [facility] August 16, 2022 3:19pm Note Date/Time August 16, 2022 2:2 0pm [facility] [place] [address] Hem/Onc Consult Note - OP Signed Patient: Geeta Shelton MR#: [id number] : 1970 Acct:[id number] Age/Sex: 52 / F Type: REG RCR Copies to: Elizabeth Alvarado APRN,FRONT COUNTER CLERK Lorrie Baig DO~ HPI Date/Time of Service: Date of Service: 08/16/2022 Time of Service: 14:19 Referring Provider/PCP: Referring Provider: Lorrie Baig DO PCP: Elizabeth Alvarado APRN, HOSPITAL CODER-C - History of Present Illness Reason for [...] and/or blood disorder. No history of thrombosis. [facility] - Medical History Medical History: [...] Additional comments: Patient: Geeta Shelton MR#: [id number] : 1970 Acct:[id number] Age/Sex: 51 / F ADM Date: 2 Loc: [place] Room: Type: [facility] Attending Dr: Tyler Villeda PA-C Copies to: CARLI Noyola Jeffrey S DO~ Ordering Provider: Tyler Villeda PA-C Date of Service: 12/17/21 IA/IA bone 3 phase: M25.562, M25.561 Nuclear medicine [...] the knee hardware bilaterally. This may bepostsurgical. IA/IA bone 3 phase IMPRESSION: Intense uptake of [...] for coordination of care (as documented) and [id number] counseling of patient and/or family. Dictated By: Zoey Ramirez APRN DD/ 1419 Signed By: <Electronically signed by RHEA Ramirez> 08/16/22 7619 [facility] Work Phone: [phone]) 227-610203-11-2023 History of Present illness Narrative* Sosa Poon [...] tape after removal as ordered. Patient has [facility] set up. Knee immobilizer sent [...] Therapy Med Surg Daily Treatment Note Facility/Department: [address] Room: W268/W268-01 NAME: Geeta Shelton : [...] ANTONELLA FEMORAL & SCIATIC BLOCK-DEMETRIA performed by Acosat Schafer MD at [facility] [place] Chart Reviewed: Yes Restrictions: Restrictions/Precautions: Fall [...] Recommendations: Continue to assess pending progress Goals Engraved Roller Inspector Goals Penitentiary Goal 1: Bed mobility with indep Engraved Roller Inspector Goal 2: Functional transfes with indep Engraved Roller Inspector Goal 3: Amb 50ft with 2ww and indep Engraved Roller Inspector Goal 4: 4 steps with handrail and [...] Therapy Med Surg Daily Treatment Note Facility/Department: [address] Room: [place] [address] NAME: Geeta Shelton : 1970 (52 y.o.) [...] Recommendations: Continue to assess pending progress Goals Engraved Roller Inspector Goals Penitentiary Goal 1: Bed mobility with indep Penitentiary Goal 2: Functional transfes with indep Engraved Roller Inspector Goal 3: Amb 50ft with 2ww and indep Penitentiary Goal 4: 4 steps with handrail and SBA Engraved Roller Inspector Goal 5: indep with HEP to improve LE strength and ROM Patient Goals Patient Goals : to go home PLAN General Plan: 2 times a day 7 days a week Safety Devices Type of Devices: All fall risk precautions in place, Call light within reach, Left in bed, Bed alarm in place, Nurse notified [facility] (6 CLICK) BASIC MOBILITY AM-PAC Inpatient [...] to accomplish the task * Arya Coronado, SHOP WORKER - FRONT COUNTER CLERK - 07/02/2022 9:49 AM EST Progress Note [...] pack per his order. * ChrissSuresh Aparicio, BICYCLE COURIER - 07/01/2022 5:51 PM EST Images from [...] puffs by inhalation with spacer [] Ipratropium Pitts 0.02% unit dose by aerosol Ipratropium Pitts MDI 2 puffs by inhalation with spacer [] Duoneb (Ipratropium + Albuterol) unit dose by aerosol Ipratropium MDI + Albuterol MDI 2 puffs byinhalation w/spacer MDI to Aerosol [] Albuterol Sulfate MDI Albuterol Sulfate 0.083% unit dose by aerosol [] Levalbuterol MDI 2 puffs by inhalation Levalbuterol 1.25 mg unit dose by aerosol [] Ipratropium Pitts MDI by inhalation Ipratropium Pitts 0.02% unit dose by aerosol [] Combivent (Ipratropium + Albuterol) MDI by inhalation Duoneb (Ipratropium + Albuterol) unit doseby aerosol Treatment Assessment [Frequency/Schedule]: Change frequency to: NO CHANGE per Protocol, P&T, [facility] Points 0 1 2 3 [...] (52 y.o.) CODE STATUS: Full Code Room: [place] [address] Date of Service: 07/01/2022 Patient Diagnosis(es): Loosening [...] Ambulation Assistance: Independent Transfer Assistance: Independent Active Paradichlorobenzene Machine Operator: Yes Mode of Transportation: Car OBJECTIVE: Orientation Status: Orientation Overall Orientation Status: Within Functional Limits Orientation Level: Oriented X4;Oriented to place;Oriented to time;Oriented to situation;Oriented toperson Observation: Observation/Palpation Posture: Good Observation: right knee incision with bandage and knee immobilizer in place Cognition Status: Cognition Overall Cognitive Status: [facility] Cognition Comment: Follows commands consistently Perception Status: [...] How much help for eating meals?: None AM-[facility] Inpatient Daily Activity Raw Score: 19 AM-[facility] Inpatient ADL T-Scale Score : 40.22 ADL [...] Physical Therapy Med Surg Initial Assessment Facility/Department: [address] ORTHO TELE Room: [facility] [address] NAME: Geeta Shelton : 1970 (52 y.o.) [...] Ambulation Assistance: Independent Transfer Assistance: Independent Active Paradichlorobenzene Machine Operator: Yes Mode of Transportation: Car OBJECTIVE: [...] Goals: Patient Goals : to go home Engraved Roller Inspector Goals Penitentiary Goal 1: Bed mobility with indep Penitentiary Goal 2: Functional transfes with indep Engraved Roller Inspector Goal 3: Amb 50ft with 2ww and indep Engraved Roller Inspector Goal 4: 4 steps with handrail and SBA Penitentiary Goal 5: indep with HEP to improve LE strength and ROM [facility] (6 CLICK) BASIC MOBILITY AM-PAC Inpatient [...] accomplish the task [facility] Work Phone: [phone]) 556-443603-09-2023 History of Present illness Narrative* History of [...] she will most likely do this at [facility] in [place]. * Physical exam * General: No acute [...] see dictated x-ray report * Procedure * Troy removed Steri-Strips placed without complication * Assessment [...] grammatical areas may persist related to the [employer] software * Merrill Alejandro PA-C * [facility] Work Phone: 1(220) 664-504703-07-2023 Hospital Discharge instructions* Discharge Instructions* Arya Coronado [...] remove dressing and start using instructions above Troy will be removed on post-operative day 14 [...] Hospital Unit/Room#: W268/W268-01 Discharging Unit Phone Number: [phone] Emergency Contact: Extended Emergency Contact Information Primary Emergency Contact: kena travis Relation: Other Past Surgical History: Past Surgical History: Procedure Laterality Date JOINT REPLACEMENT Left knee PARTIAL KNEE ARTHROPLASTY Right REVISION TOTAL KNEE ARTHROPLASTY Right 07/01/2022 RIGHT KNEE RIGHT TOTAL KNEE REVISION INSTRUMENTATION ANTONELLA FEMORAL & SCIATIC BLOCK-DEMETRIA performed by Acosta Schafer MD at [facility] [place] Immunization History: There is no immunization [...] Assisted Dressing Assisted Toileting Independent Feeding Independent Physician Allergist Immunologist Independent Med Delivery whole Wound Care Documentation [...] applicable) Name: Address: Dialysis Schedule: Phone: Fax: Cap Lining Machine Operator/Horseradish Maker signature: {Esignature:[id number]} PHYSICIAN SECTION Prognosis: {Prognosis:0881175101} Condition at Discharge: { Patient Condition:149889150} Rehab Potential (if transferring to Rehab): {Prognosis:5019275235} Recommended Labs or Other Treatments After Discharge: Physician Certification: I certify the above information and transfer of Geeta Shelton is necessary for the continuing treatment of the diagnosis listed and that she requires {[facility]} for {GREATER/LESS:977283912} 30 days. Update Admission H&P: {CHP DME Changes in HandP:136254329} PHYSICIAN SIGNATURE: {Esignature:783944858} * Attachments The following attachments cannot be sent through Care Everywhere. * Total Knee Replacement Surgery: General Info (Ghanaian) * Wound: VAC (Vacuum-Assisted Closure) (Ghanaian) documented in this encounterB[facility]JAM[facility] Work Phone: 1(697) 121-912903-02-2023 History of Present illness Narrative* Sindy Pelaez RN - 06/24/2022 11:10 AM EST Yellow PAT and Dynahex instruction sheet reviewed with patient, who verbalized understanding. documented in this encounterBENJAMIN [facility] Work Phone: evaluation noteNo assessment information available [facility] Work Phone: Evaluation note* Diagnosis Status post revision of total knee replacement, right- Primary Status post revision of total replacement of right knee Acute postoperative pain Other acute postoperative pain documented in this encounter [email or web address] [facility] Work Phone: evaluation note* Diagnosis Onset Date Resolution Status MGUS (monoclonal gammopathy of unknown significance) acute Microcytosis acute Peripheral neuropathy acute [facility] Work Phone: Evaluation note* Diagnosis Onset Date Resolution Status MGUS (monoclonal gammopathy of unknown significance) acute Microcytosis acute Peripheral neuropathy acute MGUS (monoclonal gammopathy of unknown significance) acute [facility] Work Phone: History general Narrative - Reported* Type Description Date Medical History asthma Medical History snoring Medical History Allergic Rhinitis Medical History Essential Hypertension Surgical History Revise/Replace left knee joint Surgical History Varicose Veins 2009 Surgical History Right ankle surgery Hospitalization History See above [employer] Other History of Present illness Narrative* [...] grammatical areas may persist related to the [employer] software * Acosta Schafer MD * Senior Attending Physician * [facility] [place] * . -[place] [facility] Work Phone: History of Present illness Narrative* [...] grammatical areas may persist related to the [employer] software * Acosta Schafer MD * Senior Attending Physician * [facility] * [facility] [place] * . -[place] [facility] Work Phone: History of Present illness Narrative* [...] will be re-assessed and goals updated. [facility] Work Phone: History of Present illness Narrative* [...] will be re-assessed and goals updated. [facility] Work Phone: History of Present illness Narrative* [...] [facility] [place] * . -[facility] Work Phone: History of Present illness Narrative* [...] grammatical areas may persist related to the [employer] software * Merrill Alejandro PA-C * . [facility] Work Phone: Progress note Author Krzysztof Salazar [facility] September 21, 2022 9:52am Note Date/Time September 21, 2022 9:49a m [facility] [place] [address] Hem/Onc Follow Up Note - OP Signed Patient: Geeta Shelton MR#: [id number] : 1970 Acct:[id number] Age/Sex: 52 / F Type: REG RCR [...] of gait ataxia and cane usage in thencst. Patient is ambulatory with no use of cane today; gait is slow but normal/steady. The patient is alert and oriented x3 - Time with Patient Coordination of Care & Counseling Time: Greater than 50% of time spent with patient was for coordination of care (as documented) and lpmf-or-kfxl counseling of patient and/or family. [facility] - Medical History Medical History: [...] by Krzysztof Salazar II, > 09/21/22 0952 [facility] Work Phone: Reason for visit Narrative* Initial Evaluation, Pre-Op . * Referred by: [facility]. [facility]osta [facility]fer [facility] Work Phone: Reason for visit Narrative* Initial Evaluation, Pre-Op . * Referred by: Dr. 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 [place] of attending provider for home health Dr. [...] content) DATE CREATED AUTHOR 02/01/2019 Rober Renteriaus [facility] DATE CREATED AUTHOR AUTHOR'S ORGANIZ ATION 07/04/2022 [facility] DATE CREATED AUTHOR AUTHOR'S ORGANIZ ATION 07/08/2022 [facility] ical Center DATE CREATED AUTHOR AUTHOR'S ORGANIZ ATION 12/30/2022 [employer] DATE CREATED AUTHOR AUTHOR'S ORGANIZ ATION 01/09/2023 [facility] DATE CREATED AUTHOR AUTHOR'S ORGANIZ ATION 06/12/2024 [facility] DATE CREATED AUTHOR AUTHOR'S ORGANIZ ATION 10/04/2024 [facility] ysician Group Care Teams (unrecognized sec tion and content) Team Status: Active Member Role Status Dates Elizabeth Alvarado APRN HOSPITAL CODER-C Primary Care Provide r Active Team Status: Inactive Member Role Status Dates Elizabeth Alvarado APRN HOSPITAL CODER-René Primar y Care Provider, Attending Provider Active Team Status: Inactive Member Role Status Dates Elizabeth Alvarado APRN HOSPITAL CODER-C Primary Care Provide r Active Lorrie Baig DO Attending Provider Active Team Status: Inactive Member Role Status Dates Elizabeth Alvarado APRN HOSPITAL CODER-C Primary Care Provide r Active Tyler Villeda PA-C Attending Provider Active Team Status: Inactive Member Role Status Dates Elizabeth Alvarado APRN HOSPITAL CODER-C Attending Provider A ctive Services Family [facility] Primary Care Provider Active Nurse Executive Relationship Specialty Start Date End Date Elizabeth Alvarado PCP - General 07/01/22 Team Status: Active Member Role Status Dates Elizabeth Alvarado APRN HOSPITAL CODER-C Primary Care Provide r Active Zoey Ramirez APRN Attending Provider Active Lorrie Baig DO Referring Provider Active Team Status: Inactive Member Role Status Dates Elizabeth Alvarado APRN HOSPITAL CODER-C Primary Care Provide r Active Acosta Schafer Attending Provider Active Team Status: Inactive Member Role Status Dates Elizabeth Alvarado APRN HOSPITAL CODER-C Primary Care Provide r Active Sindy Davila HOSPITAL CODER-C Attending Provider Active Team Status: Inactive Member Role Status Dates Elizabeth Alvarado APRN HOSPITAL CODER-C Attending Provider A ctive Start: August 24, 2023 End: August 24, 2023 Team Status: Active Member Role Status Dates PHYSICIAN NO FAMILY Primary Care Provider Active Team Status: Inactive Member Role Status Dates Elizabeth Alvarado APRN HOSPITAL CODER-C Attending Provider A ctive Start: September 07, 2023 End: September 07, 2023 PHYSICIAN NO FAMILY Primary Care Provider Active Start: September 07, 2023 End: September 07, 2023 Team Status: Active Member Role Status Dates Elizabeth Alvarado APRN HOSPITAL CODER-C Primary Care Provide r Active Start: September 30, 2023 Zoey Ramirez APRN Active Start: September 30, 2023 Lorrie Baig DO Referring Provider Active Sta rt: September 30, 2023 Krzysztof Salazar II, DO Attending Provider Active Start: September 30, 2023 Team Status: Inactive Member Role Status Dates Elizabeth Alvarado APRN HOSPITAL CODER-C Primary Care Provide r Active Start: September [...] 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 NE REVJ TOTAL KNEE ARTHRP W/WO ALGRFT 1 COMPONENT NE REVJ TOT KNEE ARTHRP FEM&ENTIRE TIBIAL COMPONE RIGHT KNEE RIGHT TOTAL KNEE REVISION INSTRUMENTATION ANTONELLA FEMORAL & SCIATIC BLOCK Acosta Schafer MD [address] [place] [address] [facility] [address] [place] [address] Referral ID Status Reason Start Date Expiration Date Visits Re quested Visits Authorized [id number] 1 1 Ordered Prescriptions (unrec ognized section [...] at 250 mL/hr, Administer over 60 Minutes, 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 [employer] [facility]. provides no warranty or guarantee of the accuracy or completeness of information in this document.
== END 2025-01-31 15:04 | disposition home or self-care (01) ==
LOC: WC 15:06
PROVIDERS: Visit Provider Physician Assistant
DX: E11.621 Type 2 diabetes mellitus with foot ulcer (principal); L97.411 Non-pressure chronic ulcer of right heel and midfoot limited to breakdown of skin
CPT/HCPCS: 11042; 29445

== ENCOUNTER 2025-02-07 14:12 | Outpatient (OUT) | payer MEDICARE, MEDICAID, SELFPAY ==
--- OUTSIDE RECORDS SUMMARY | 2014-02-13 04:00 | XMS_ITS | Continuity of Care Document ---
Author Organization [facility] Address [address] [place] [address] Phone Care Team Providers Care Human Resources Talent Manager Name Role Phone Lazaro SUBHA July Unavailable [...] Diagnoses Date Provider Providers Copied on Encounter [facility], [address] [place] [address], [id number], [place] tel:[phone] Dental Clinic Dental examination Lazaro DMD July. [address] [place], [place], [id number], [place]. tel:[phone] [facility], [address] [place], [place], [id number], tel:[phone] Dental Clinic Dental examination Lazaro DMD Susan. [address] [place], [place], [id number], [place]. tel:[phone] [facility], [address] [place], [place], [id number], [place] tel:[phone] Dental Clinic Dental examination Sergey Higginbotham. [address] [place], [place], [id number], [place]. tel:[phone] Family History Family Member Type Diagnosis Age At Onset No Information Payers Payer name Insurance type Covered alliance party ID Lisbethrich fermin(s) D Medicaid Primary [facility] [id number] Social History Type Description Quantity Date Captured [...]
--- OUTSIDE RECORDS SUMMARY | 2023-12-08 04:00 | XMS_ITS ---
Author Organization [facility] Address [address] [place] [address] Care Team Providers Care Silk Blocker Name Role Phone Mamadou Chang Primary Care Provider Maye Burger REASON FOR VISIT Well woman, jardiance response Encounters Encounter Location Date Provider Diagnosis [facility] [address] [facility] [place] [address] 12/08/2023 Maye Burger Plan Of Treatment No Information Progress Notes * GEETA VANCE JDOB: [birth year] (54 yo F)Acc No.[id number]:12/08/2023 Progress Notes Patient: ROCIO IBANEZARA Suresh Provider: Suresh Burger CNP :1970 A ge:53 Y S ex:Female Date:12/08/2023 Address:[address] [facility] Pcp:Mamadou Chang Subjective: * Chief Complaints: * W ell woman, jardiance response Billing Information: * Procedure Codes: * Electronic signature of Neva Burger CNP on 02/07/2025 at 02:15 PM EDT Sign off status: Pending * Provider: Suresh Burger CNP Date: 0 12/08/2023 Generated for Venusi sabino/Saloni/eTransmitting on: 1 02:15 PM EDT
--- OUTSIDE RECORDS SUMMARY | 2023-12-20 05:00 | XMS_ITS ---
Author Organization [facility] Address [address] [place] [address] Care Team Providers Care Culinary Manager Name Role Phone Mamadou Chang Primary Care Provider [phone] Maye Burger [phone] REASON FOR VISIT WWE, JARDIANCE RESPONSE Encounters Encounter Location Date Provider Diagnosis [facility] [address] [facility] [place] [address] 12/20/2023 Maye Burger Plan Of Treatment No Information Progress Notes * GEETA VANCEDOB: [birth year] (54 yo F)Acc No.[id number]:12/20/2023 Progress Notes Patient: ROCIO IBANEZARA Suresh Provider: Suresh Burger CNP :1970 A ge:53 Y S ex:Female Date:12/20/2023 Address:[address] [facility] Pcp:Mamadou Chang Subjective: * Chief Complaints: * W WE, JARDIANCE RESPONSE Billing Information: * Procedure Codes: * Electronic signature of Neva Burger CNP on 02/07/2025 at 02:15 PM EDT Sign off status: Pending * Provider: Suresh Burger CNP Date: 0 12/20/2023 Generated for Venusi ng/Fasaminag/eTransmitting on: 1 02:15 PM EDT
--- OUTSIDE RECORDS SUMMARY | 2024-01-24 13:00 | XMS_ITS ---
Author Organization [facility] Address [address] [place] [address] Care Team Providers Care Manager Application Name Role Phone Mamadou Chang Primary Care Provider Zuly Neville [phone] REASON FOR VISIT CHECK UP Encounters Encounter Location Date Provider Diagnosis [place] [address] [place] [address] 01/24/2024 Zuly Neville Plan Of Treatment No Information Progress Notes * GEETA VANCEDOB: [birth year] (54 yo F)Acc No.[id number]:01/24/2024 Patient: Kaylin FEITRICIAGEETA Provider: Caitie Kolb CNP :1970 A ge:53 Y S ex:Female Date:01/24/2024 Address:[address] [facility] Pcp:Mamadou Chang Subjective: * Chief Complaints: * C HECK UP Billing Information: * Procedure Codes: * Electronic signature of SANDRINE Bautista on 02/07/2025 at 02:16 PM EDT Sign off status: Pending * Provider: Caitie Kolb CNP Date: Generated for Jacki gallo/Saloni/eTransmitting on: 02:16 PM EDT
--- OUTSIDE RECORDS SUMMARY | 2024-02-15 04:15 | XMS_ITS ---
Author Organization The [facility] in [place] Address [address] [facility] [place] [address] Care Team Providers Care Financial Services Intern Name Role Phone Nahid HAMM, Mimi Primary Care Provider Jun Fair [phone] REASON FOR VISIT 3 weeks -- has new insurance Encounters Encounter Location Date Provider Diagnosis [facility] (PODIATRY) [address] [place] [address] [place] [address] 02/15/2024 Jun Gentile Plan Of Treatment No Information Progress Notes * Anita VANCEDOB: 8 (54 yo F)Acc No.[id number]:02/15/2024 UNLOCKED PROGRESS NOTE Follow Up Patient: Anita IBANEZ Provider: Rad Gentile DPM, MS :1970 A ge:53 Y S ex:Female Date:02/15/2024 Address:[address] [place], [place] [id number] Pcp:Mimi Whitfield NP Subjective: * Chief Complaints: * 1 . 3 weeks -- has new insurance. * Medical History: Objective: * Vitals: Assessment: Plan: * Treatment: * * Electronic signature of Chad Gentile DPM on 02/07/2025 at 02:15 PM EDT Sign off status: Pending Visit Status: N /S N/C (No Show/No Charge) * Provider: Rad Gentile DPM, MS Date: Generated for Printi ng/Faxing/eTransmitting on: 5 02:15 PM EDT
--- OUTSIDE RECORDS SUMMARY | 2024-06-01 09:30 | XMS_ITS ---
Author Organization [facility] es Address [address] [place] [address] Care Team Providers Care Book Cleaner Name Role Phone Mamadou Chang Primary Care Provider Maye Burger REASON FOR VISIT red edgard across back Encounters Encounter Location Date Provider Diagnosis [facility] [address] [place] [address] 06/01/2024 Maye Burger Plan Of Treatment No Information Progress Notes * GEETA VANCEDOB: [birth year] (54 yo F)Acc No.[id number]:06/01/2024 Progress Notes Patient: Kaylin PLASCENCIA GEETA Prince Provider: Suresh Burger CNP :1970 A ge:54 Y S ex:Female Date:06/01/2024 Address:[address] [facility] Pcp:Mamadou Chang Subjective: * Chief Complaints: * R ed edgard across back Billing Information: * Procedure Codes: * Electronic signature of Neva Burger CNP on 02/07/2025 at 02:15 PM EDT Sign off status: Pending * Provider: Suresh Burger CNP Date: 0 06/01/2024 Generated for Venusi ng/Fasaminag/eTransmitting on: 1 02:15 PM EDT
--- OUTSIDE RECORDS SUMMARY | 2024-06-05 09:15 | XMS_ITS ---
Author Organization The [facility] in [place] Address [address] [facility] [place] [address] Care Team Providers Care Sleeve Machine Tender Name Role Phone Nahid HAMM, Mimi Primary Care Provider Jun Fair Unavailable [phone] REASON FOR VISIT rt ankle pain/ swollen Encounters Encounter Location Date Provider Diagnosis [facility] (PODIATRY) [address] [place] [address] [place] [address] 06/05/2024 Jun Gentile Pain in right ankle [...] Notes * VANCEAnitaDOB: [birth year] (54 yo F)Acc No.[id number]:06/05/2024 UNLOCKED PROGRESS NOTE Follow Up Patient: Anita IBANEZ Provider: aRd Gentile DPM MS :1970 A ge:54 Y S ex:Female Date:06/05/2024 [address] [facility] [id number] Pcp:Mimi Whitfield NP Subjective: * Chief Complaints: * 1 . Rt ankle pain/ swollen. * Medical History: Objective: * Vitals: Assessment: * Assessment: 1. P ain in right ankle and joints of right foot - M25.571 Plan: * Treatment: * * Electronic signature of Chad Gentile DPM on 02/07/2025 at 02:14 PM EDT Sign off status: Pending Visit Status: C ANC (Cancelled) * Provider: Rad Gentile DPM, MS Date: 0 06/05/2024 Generated for Jacki gallo/Saloni/Pippa on: 1 02:14 PM EDT
--- OUTSIDE RECORDS SUMMARY | 2024-09-06 05:30 | XMS_ITS ---
Author Organization [facility] es Address [address] [place] [address] Care Team Providers Care Field Contact Technician Name Role Phone Mamadou Chang Primary Care Provider REASON FOR VISIT est care Encounters Encounter Location Date Provider Diagnosis [facility] [address] [facility] [facility] [place] [address] 09/06/2024 Mamadou Chang Plan Of Treatment No Information Progress Notes * GEETA VANCEDOB: [birth year] (54 yo F)Acc No.[id number]:09/06/2024 Progress Notes Patient: Kaylin GEETA PLASCENCIA Provider: Kaylin Chang DO :1970 A ge:54 Y S ex:Female Date:09/06/2024 [address] [id number] Subjective: * Chief Complaints: * E st care Billing Information: * Procedure Codes: * Electronic signature of Debo Chang DO, [id number] on 02/07/2025 at 02:15 PM EDT Sign off status: Pending * Provider: Kaylin Chang DO Date: 0 09/06/2024 Generated for Venusi sabino/Saloni/eTransmitting on: 1 02:15 PM EDT
--- OUTSIDE RECORDS SUMMARY | 2024-09-20 05:30 | XMS_ITS ---
Author Organization [facility] es Address [address] [place] [address] Care Team Providers Care Leather Sorter Name Role Phone Mamadou Chang Primary Care Provider [phone] REASON FOR VISIT EST CARE-NEW TO YOU Encounters Encounter Location Date Provider Diagnosis [facility] [address] [place] [address] 09/20/2024 Mamadou Chang Plan Of Treatment No Information Progress Notes * EGETA VANCEDOB: [birth year] (54 yo F)Acc No.[id number]:09/20/2024 Progress Notes Patient: Kaylin FEITRICIAGEETA Provider: Kaylin Chang DO :1970 A ge:54 Y S ex:Female Date:09/20/2024 Address:[address] [place], [id number] Subjective: * Chief Complaints: * E ST CARE-NEW TO YOU Billing Information: * Procedure Codes: * Electronic signature of Debo Chang DO, [id number] on 02/07/2025 at 02:15 PM EDT Sign off status: Pending * Provider: Kaylin Chang DO Date: 0 09/20/2024 Generated for Jacki gallo/Saloni/eTeastonsmitting on: 1 02:15 PM EDT
--- OUTSIDE RECORDS SUMMARY | 2025-02-07 14:15 | XMS_ITS | CCD ---
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 Acosta Tyson Attending Un [...] source) Ibuprofen Drug Allergy 4 Unknown Reaction [facility] Penicillins (antibiotic) (2 sources) Penicillin Drug Allergy 4 hives [facility] (20 sources) Penicillins; Translations: [Penicillins] Allergy to substance 8 Anaphylaxis [facility] (6 sources) Ibuprofen; Translations: [ibuprofen] Drug Allergy 3 Unknown Reaction [facility] (3 sources) Penicillin V Drug Allergy 3 hives [facility] (1 source) Penicillin Drug Allergy 4 [facility] Repository Medications Current Medications Medication Drug Class(es) Dates Sig (Normalized) Sig (Original) acetaminophen 325 mg oral tablet (2 sources) Start: 07-01-2022 acetaminophen (TYLENOL) tablet 650 mg Start: 07-01-2022 End: 07-01-2022 acetaminophen (TYLENOL) tabl et 1,000 mg [id number] 200 actuat albuterol 0.09 mg/actuat metered dose [...] disintegrating tablet 4 mg polyethylene glycol 3350 17782 mg powder for oral solution (1 source) [...] Inhalation, 2 TIMES DAILY, First dose on [facility] 07/01/22 at 2000, Until Discontinued Substituted [...] Range Facility Outside Recordson 06-11-2024 Outside Records [id number] [facility] Rad - Other Radiology Report on 06-11-2024 Rad - Other Radiology Report [id number]#[id number] [facility] Rad - Other Radiology Report [id number]#[id number] [facility] Alanine aminotransferase [En zymatic activity/volume] in Serum or PlasmaOrdered By: Krzysztof Salazar on 09-20-2023 ALT [Catalytic activity/Vol] 33 U/L 7-52 [facility] Albumin [Mass/volume] in Ser um or PlasmaOrdered By: Krzysztof Salazar on 09-20-2023 Albumin [Mass/Vol] 3.8 g/dL 2.9-4.4 [facility] Albumin [Mass/volume] in Ser um or Plasma by Bromocresol green (BCG) dye binding methoOrdered By: Krzysztof Salazar on 09-20-2023 Albumin BCG dye [Mass/Vol] 4.2 g/dL 3.5-5.7 [facility] Alkaline phosphatase [Enzyma tic activity/volume] in Serum or PlasmaOrdered By: Krzysztof Salazar on 09-20-2023 ALP [Catalytic activity/Vol] 79 U/L 34-104 [facility] Aspartate aminotransferase [ Enzymatic activity/volume] in Serum or PlasmaOrdered By: Krzysztof Salazar on 09-20-2023 AST [Catalytic activity/Vol] 30 U/L 13-39 [facility] Basophils Auto (Bld) [#/Vol] Ordered By: Krzysztof Salazar on 09-20-2023 Basophils (Bld) [#/Vol] 0.0 10*3/uL 0.0-0.2 [facility] Basophils/100 WBC Auto (Bld) Ordered By: Krzysztof Salazar on 09-20-2023 Basophils/100 WBC (Bld) 0.5 % . F [facility] Bilirubin.total [Mass/volume ] in Serum or PlasmaOrdered By: Krzysztof Salazar on 09-20-2023 Bilirubin [Mass/Vol] 0.6 mg/dL 0.3-1.0 [facility] Calcium [Mass/volume] in Ser um or PlasmaOrdered By: Krzysztof Salazar on 09-20-2023 Calcium [Mass/Vol] 9.7 mg/dL 8.6-10.3 [facility] Carbon dioxide, total [Moles /volume] in Serum or PlasmaOrdered By: Krzysztof Salazar on 09-20-2023 CO2 [Moles/Vol] 32.4 mmol/L 21.0-31.0 [facility] Chloride [Moles/volume] in S hugo or PlasmaOrdered By: Krzysztof Salazar on 09-20-2023 Chloride [Moles/Vol] 97 mmol/L 98-107 [facility] Creatinine [Mass/volume] in Serum or PlasmaOrdered By: Krzysztof Salazar on 09-20-2023 Creatinine [Mass/Vol] 0.60 mg/dL 0.60-1.20 [facility] Eosinophils Auto (Bld) [#/Vo l]Ordered By: Krzysztof Salazar on 09-20-2023 Eosinophils (Bld) [#/Vol] 0.2 10*3/uL 0.0-0.45 [facility] Eosinophils/100 WBC Auto (Bl d)Ordered By: Krzysztof Salazar on 09-20-2023 Eosinophils/100 WBC (Bld) 2.6 % . [facility] Erythrocyte distribution wid th Auto (RBC) [Ratio]Ordered By: Krzysztof Salazar on 09-20-2023 Erythrocyte distribution width (RBC) [Ratio] 16.7 % 11.9-15.3 [facility] Ferritin [Mass/volume] in Se rum or PlasmaOrdered By: Krzysztof Salazar on 09-20-2023 Ferritin [Mass/Vol] 92.7 ng/mL 11.0-306.8 [facility] Globulin Calc (S) [Mass/Vol] Ordered By: Krzysztof Salazar on 09-20-2023 Globulin (S) [Mass/Vol] 3.5 g/dL F [facility] Glucose [Mass/volume] in Ser um or PlasmaOrdered By: Krzysztof Salazar on 09-20-2023 Glucose [Mass/Vol] 123 mg/dL 70-100 [facility] Comment on above: ADA recommended refe rence rangeRandom Glucose Reference Range is dependent on time and content of last meal. Glucose of more than 200 mg/dL in a nonstressed, ambulatory subject supports the diagnosis of Diabetes Mellitus. Hematocrit Auto (Bld) [Volum e fraction]Ordered By: Krzysztof Salazar on 09-20-2023 Hematocrit (Bld) [Volume fraction] 38.3 % 34.0-46.4 [facility] Hemoglobin [Mass/volume] in BloodOrdered By: Krzysztof Salazar on 09-20-2023 Hemoglobin (Bld) [Mass/Vol] 12.5 g/dL 11.8-15.4 [facility] IgA [Mass/volume] in Serum o r PlasmaOrdered By: Krzysztof Salazar on 09-20-2023 IgA [Mass/Vol] 409 mg/dL 87-352 [facility] IgG [Mass/volume] in Serum o r PlasmaOrdered By: Krzysztof Salazar on 09-20-2023 IgG [Mass/Vol] 1704 mg/dL 586-1602 [facility] IgM [Mass/volume] in Serum o r PlasmaOrdered By: Krzysztof Salazar on 09-20-2023 IgM [Mass/Vol] 122 mg/dL 26-217 [facility] Comment on above: Performed at: [address] [id number] Director: Jeyson Duncan PhD, Phone: [phone] Immunoglobulin light chains. kappa.free [Mass/volume] in SerumOrdered By: Krzysztof Salazar on 09-20-2023 Immunoglobulin light chains.kappa.free (S) [Mass/Vol] 30.9 mg/L 3.3-19.4 [facility] Immunoglobulin light chains. kappa.free/Immunoglobulin light chains.lambda.free [MassOrdered By: Krzysztof Salazar on 09-20-2023 Immunoglobulin light chains.kappa.free/Immuno globulin light chains.lambda.free (S) [Mass ratio] 1.17 0.26-1.65 [facility] Comment on above: Performed at: [address] [id number] Director: Jeyson Duncan PhD, Phone: [phone] Immunoglobulin light chains. lambda.free [Mass/volume] in Serum or PlasmaOrdered By: Krzysztof Salazar on 09-20-2023 Immunoglobulin light chains.lambda.free [Mass/Vol] 26.4 mg/L 5.7-26.3 [facility] Iron [Mass/volume] in Serum or PlasmaOrdered By: Krzysztof Salazar on 09-20-2023 Iron [Mass/Vol] 74 ug/dL 50-212 [facility] Iron binding capacity [Mass/ volume] in Serum or PlasmaOrdered By: Krzysztof Salazar on 09-20-2023 Iron binding capacity [Mass/Vol] 344 ug/dL 255-450 [facility] Iron saturation [Mass Fracti on] in Serum or PlasmaOrdered By: Krzysztof Salazar on 09-20-2023 Iron saturation [Mass fraction] 21.5 % 20-50 [facility] Leukocytes [#/volume] correc silverio for nucleated erythrocytes in Blood by Automated counOrdered By: Krzysztof Salazar on 09-20-2023 WBC corrected for nucl RBC Auto (Bld) [#/Vol] 8.5 10*3/uL 3.8-11.6 [facility] Lymphocytes Auto (Bld) [#/Vo l]Ordered By: Krzysztof Salazar on 09-20-2023 Lymphocytes (Bld) [#/Vol] 2.1 10*3/uL 1.00-4.8 [facility] Lymphocytes/100 WBC Auto (Bl d)Ordered By: Krzysztof Salazar on 09-20-2023 Lymphocytes/100 WBC (Bld) 24.7 % . [facility] MCH Auto (RBC) [Entitic mass ]Ordered By: Krzysztof Salazar on 09-20-2023 MCH (RBC) [Entitic mass] 25.8 pg 24.7-34.3 [facility] MCHC Auto (RBC) [Mass/Vol]Or dered By: Krzysztof Salazar on 09-20-2023 MCHC (RBC) [Mass/Vol] 32.7 g/dL 32.0-35.0 [facility] MCV Auto (RBC) [Entitic vol] Ordered By: Krzysztof Salazar on 09-20-2023 MCV (RBC) [Entitic vol] 78.7 fL 80-100 [facility] Monocytes Auto (Bld) [#/Vol] Ordered By: Krzyszotf Salazar on 09-20-2023 Monocytes (Bld) [#/Vol] 0.7 10*3/uL 0.0-0.8 [facility] Monocytes/100 WBC Auto (Bld) Ordered By: Krzysztof Salazar on 09-20-2023 Monocytes/100 WBC (Bld) 7.9 % . F [facility] Neutrophils Auto (Bld) [#/Vo l]Ordered By: Krzysztof Salazar on 09-20-2023 Neutrophils (Bld) [#/Vol] 5.5 10*3/uL 1.8-7.7 [facility] Neutrophils/100 WBC Auto (Bl d)Ordered By: Krzysztof Salazar on 09-20-2023 Neutrophils/100 WBC (Bld) 64.3 % . [facility] No Panel InformationOrdered By: Krzysztof Salazar on 09-20-2023 Estimated GFR (CKD-EPI) > 60.0 mL/Min [facility] Creatinine Clearance (Chem 143.32 [facility] Protein Electrophoresis M-Antwan Not observed g/dL Not Observed [facility] Protein Electrophoresis Note See comment . [facility] Comment on above: Protein electrophore sis scan will follow via computer,mail, or mimeograph operator delivery. Serum Immunofixation See comment . [facility] Comment on above: No monoclonality det ected. Nucleated erythrocytes [Pres ence] in Blood by Automated countOrdered By: Krzysztof Salazar on 09-20-2023 Nucleated RBC Auto Ql (Bld) 0.1 /100{WBC} 0-0.5 [facility] Platelet mean volume Auto (B ld) [Entitic vol]Ordered By: Krzysztof Salazar on 09-20-2023 Platelet mean volume (Bld) [Entitic vol] 8.8 fL 6.3-10.7 [facility] Platelets Auto (Bld) [#/Vol] Ordered By: Krzysztof Salazar on 09-20-2023 Platelets (Bld) [#/Vol] 271 10*3/uL 150-450 [facility] Potassium [Moles/volume] in Serum or PlasmaOrdered By: Krzysztof Salazar on 09-20-2023 Potassium [Moles/Vol] 4.4 mmol/L 3.5-5.1 [facility] Protein [Mass/volume] in Ser um or PlasmaOrdered By: Krzysztof Salazar on 09-20-2023 Protein [Mass/Vol] 7.7 g/dL 6.4-8.9 [facility] Protein [Mass/Vol] 7.8 g/dL 6.0-8.5 [facility] RBC Auto (Bld) [#/Vol]Ordere d By: Krzysztof Salazar on 09-20-2023 RBC (Bld) [#/Vol] 4.86 10*6/uL 3.60-5.00 [facility] Serum globulin measurement ( mass/volume)Ordered By: Krzysztof Salazar on 09-20-2023 Globulin (S) [Mass/Vol] 4.0 g/dL 2.2-3.9 [facility] Serum or plasma albumin/glob ulin mass ratioOrdered By: Krzysztof Salazar on 09-20-2023 Albumin/Globulin [Mass ratio] 1.2 {ratio} [facility] Albumin/Globulin [Mass ratio] 1.0 {ratio} 0.7-1.7 [facility] Serum or plasma alpha 1 glob ulin measurement by electrophoresis (mass/volume)Ordered By: Krzysztof Salazar on 09-20-2023 Alpha 1 globulin Elph [Mass/Vol] 0.3 g/dL 0.0-0.4 [facility] Serum or plasma alpha 2 glob ulin measurement by electrophoresis (mass/volume)Ordered By: Krzysztof Salazar on 09-20-2023 Alpha 2 globulin Elph [Mass/Vol] 0.8 g/dL 0.4-1.0 [facility] Serum or plasma anion gap de terminationOrdered By: Krzysztof Salazar on 09-20-2023 Anion gap [Moles/Vol] 11.0 mmol/L 6.0-15.[address] [facility] Serum or plasma beta globuli n measurement by electrophoresis (mass/volume)Ordered By: Krzysztof Salazar on 09-20-2023 Beta globulin Elph [Mass/Vol] 1.2 g/dL 0.7-1.3 [facility] Serum or plasma gamma globul in measurement by electrophoresis (mass/volume)Ordered By: Krzysztof Salazar on 09-20-2023 Gamma globulin Elph [Mass/Vol] 1.8 g/dL 0.4-1.8 [facility] Sodium [Moles/volume] in Ser um or PlasmaOrdered By: Krzysztof Salazar on 09-20-2023 Sodium [Moles/Vol] 136 mmol/L 136-145 [facility] Transferrin [Mass/volume] in Serum or PlasmaOrdered By: Krzysztof Salazar on 09-20-2023 Transferrin [Mass/Vol] 246 mg/dL 203-[address] [facility] Urea nitrogen [Mass/volume] in Serum or PlasmaOrdered By: Krzysztof Salazar on 09-20-2023 Urea nitrogen [Mass/Vol] 16 mg/dL 7 [facility] WBC Auto (Bld) [#/Vol]Ordere d By: Krzysztof Salazar on 09-20-2023 WBC (Bld) [#/Vol] 8.5 10*3/uL 3.8-11.6 [facility] Alanine aminotransferase [En zymatic activity/volume] in Serum or PlasmaOrdered By: Elizabeth Alvarado on 08-24-2023 ALT [Catalytic activity/Vol] 28 U/L [facility] Albumin [Mass/volume] in Ser um or Plasma by Bromocresol green (BCG) dye binding methoOrdered By: Elizabeth Alvarado on 08-24-2023 Albumin BCG dye [Mass/Vol] 4.3 g/dL 3.5-5.7 [facility] Alkaline phosphatase [Enzyma tic activity/volume] in Serum or PlasmaOrdered By: Elizabeth Alvarado on 08-24-2023 ALP [Catalytic activity/Vol] 86 U/L 34-104 [facility] Aspartate aminotransferase [ Enzymatic activity/volume] in Serum or PlasmaOrdered By: Elizabeth Alvarado on 08-24-2023 AST [Catalytic activity/Vol] 28 U/L 13-39 [facility] Basophils Auto (Bld) [#/Vol] Ordered By: Elizabeth Alvarado on 08-24-2023 Basophils (Bld) [#/Vol] 0.1 10*3/uL 0.0-0.2 [facility] Basophils/100 WBC Auto (Bld) Ordered By: Elizabeth Alvarado on 08-24-2023 Basophils/100 WBC (Bld) 0.7 % . F [facility] Bilirubin.total [Mass/volume ] in Serum or PlasmaOrdered By: Elizabeth Alvarado on 08-24-2023 Bilirubin [Mass/Vol] 0.4 mg/dL 0.3-1.0 [facility] Calcium [Mass/volume] in Ser um or PlasmaOrdered By: Elizabeth Alvarado on 08-24-2023 Calcium [Mass/Vol] 9.4 mg/dL 8.6-10.3 [facility] Carbon dioxide, total [Moles /volume] in Serum or PlasmaOrdered By: Elizabeth Alvarado on 08-24-2023 CO2 [Moles/Vol] 29.2 mmol/L 21.0-31.0 [facility] Chloride [Moles/volume] in S hugo or PlasmaOrdered By: Elizabeth Alvarado on 08-24-2023 Chloride [Moles/Vol] 96 mmol/L 98-107 [facility] Cholesterol [Mass/volume] in Serum or PlasmaOrdered By: Elizabeth Alvarado on 08-24-2023 Cholesterol [Mass/Vol] 160 mg/dL 140-[address] [facility] Comment on above: Chol less than 200 m g/dl low riskChol 201-239 mg/dl borderline riskChol 240 mg/dl and greater high risk Cholesterol in LDL Calc [Mas s/Vol]Ordered By: Elizabeth Alvarado on 08-24-2023 Cholesterol in LDL [Mass/Vol] 78 mg/dL 0-100 [facility] Comment on above: LDL ATP III CLASSIFI CATIONLDL less than 100 mg/dL OptimalLDL 100-129 mg/dL Near or above optimalLDL 130-159 mg/dL Borderline highLDL 160-189 mg/dL HighLDL greater than 189 mg/dL Very high Cholesterol in VLDL Calc [Ma ss/Vol]Ordered By: Elizabeth Alvarado on 08-24-2023 Cholesterol in VLDL [Mass/Vol] 22 mg/dL [facility] Creatinine [Mass/volume] in Serum or PlasmaOrdered By: Elizabeth Alvarado on 08-24-2023 Creatinine [Mass/Vol] 0.65 mg/dL 0.60-1.20 [facility] Creatinine [Mass/volume] in UrineOrdered By: Elizabeth Alvarado on 08-24-2023 Creatinine (U) [Mass/Vol] 76.0 mg/dL [facility] Comment on above: No reference range e stablished Eosinophils Auto (Bld) [#/Vo l]Ordered By: Elizabeth Alvarado on 08-24-2023 Eosinophils (Bld) [#/Vol] 0.3 10*3/uL 0.0-0.45 [facility] Eosinophils/100 WBC Auto (Bl d)Ordered By: Elizabeth Alvarado on 08-24-2023 Eosinophils/100 WBC (Bld) 3.3 % . [facility] Erythrocyte distribution wid th Auto (RBC) [Ratio]Ordered By: Elizabeth Alvarado on 08-24-2023 Erythrocyte distribution width (RBC) [Ratio] 15.8 % 11.9-15.3 [facility] Globulin Calc (S) [Mass/Vol] Ordered By: Elizabeth Alvarado on 08-24-2023 Globulin (S) [Mass/Vol] 3.4 g/dL F [facility] Glucose [Mass/volume] in Ser um or PlasmaOrdered By: Elizabeth Alvarado on 08-24-2023 Glucose [Mass/Vol] 92 mg/dL 70-100 [facility] Comment on above: ADA recommended refe rence rangeRandom Glucose Reference Range is dependent on time and content of last meal. Glucose of more than 200 mg/dL in a nonstressed, ambulatory subject supports the diagnosis of Diabetes Mellitus. Hematocrit Auto (Bld) [Volum e fraction]Ordered By: Elizabeth Alvarado on 08-24-2023 Hematocrit (Bld) [Volume fraction] 40.6 % 34.0-46.4 [facility] Hemoglobin [Mass/volume] in BloodOrdered By: Elizabeth Alvarado on 08-24-2023 Hemoglobin (Bld) [Mass/Vol] 13.2 g/dL 11.8-15.4 [facility] Leukocytes [#/volume] correc silverio for nucleated erythrocytes in Blood by Automated counOrdered By: Elizabeth Alvarado on 08-24-2023 WBC corrected for nucl RBC Auto (Bld) [#/Vol] 10.2 10*3/uL 3.8-11.6 [facility] Lymphocytes Auto (Bld) [#/Vo l]Ordered By: Elizabeth Alvarado on 08-24-2023 Lymphocytes (Bld) [#/Vol] 2.6 10*3/uL 1.00-4.8 [facility] Lymphocytes/100 WBC Auto (Bl d)Ordered By: Elizabeth Alvarado on 08-24-2023 Lymphocytes/100 WBC (Bld) 25.5 % . [facility] MCH Auto (RBC) [Entitic mass ]Ordered By: Elizabeth Alvarado on 08-24-2023 MCH (RBC) [Entitic mass] 26.1 pg 24.7-34.3 [facility] MCHC Auto (RBC) [Mass/Vol]Or dered By: Elizabeth Alvarado on 08-24-2023 MCHC (RBC) [Mass/Vol] 32.5 g/dL 32.0-35.0 [facility] MCV Auto (RBC) [Entitic vol] Ordered By: Elizabeth Alvarado on 08-24-2023 MCV (RBC) [Entitic vol] 80.3 fL 80-100 [facility] Microalbumin [Mass/volume] i n UrineOrdered By: Elizabeth Alvarado on 08-24-2023 Albumin DL <= 20 mg/L (U) [Mass/Vol] mg/dL 0.0-1.8 [facility] Monocytes Auto (Bld) [#/Vol] Ordered By: Elizabeth Alvarado on 08-24-2023 Monocytes (Bld) [#/Vol] 0.8 10*3/uL 0.0-0.8 [facility] Monocytes/100 WBC Auto (Bld) Ordered By: Elizabeth Alvarado on 08-24-2023 Monocytes/100 WBC (Bld) 8.1 % . [facility] Neutrophils Auto (Bld) [#/Vo l]Ordered By: Elizabeth Alvarado on 08-24-2023 Neutrophils (Bld) [#/Vol] 6.4 10*3/uL 1.8-7.7 [facility] Neutrophils/100 WBC Auto (Bl d)Ordered By: Elizabeth Alvarado on 08-24-2023 Neutrophils/100 WBC (Bld) 62.4 % . [facility] No Panel InformationOrdered By: Elizabeth Alvarado on 08-24-2023 Estimated GFR (CKD-EPI) > 60.0 mL/Min [facility] Creatinine Clearance (Chem N/A [facility] Nucleated erythrocytes [Pres ence] in Blood by Automated countOrdered By: Elizabeth Alvarado on 08-24-2023 Nucleated RBC Auto Ql (Bld) 0.2 /100{WBC} 0-0.5 [facility] Platelet mean volume Auto (B ld) [Entitic vol]Ordered By: Elizabeth Alvarado on 08-24-2023 Platelet mean volume (Bld) [Entitic vol] 9.8 fL 6.3-10.7 [facility] Platelets Auto (Bld) [#/Vol] Ordered By: Elizabeth Alvarado on 08-24-2023 Platelets (Bld) [#/Vol] 283 10*3/uL 150-450 [facility] Potassium [Moles/volume] in Serum or PlasmaOrdered By: Elizabeth Alvarado on 08-24-2023 Potassium [Moles/Vol] 4.3 mmol/L 3.5-5.1 [facility] Protein [Mass/volume] in Ser um or PlasmaOrdered By: Elizabeth Alvarado on 08-24-2023 Protein [Mass/Vol] 7.7 g/dL 6.4-8.9 [facility] RBC Auto (Bld) [#/Vol]Ordere d By: Elizabeth Alvarado on 08-24-2023 RBC (Bld) [#/Vol] 5.06 10*6/uL 3.60-5.00 [facility] Serum or plasma albumin/glob ulin mass ratioOrdered By: Elizabeth Alvarado on 08-24-2023 Albumin/Globulin [Mass ratio] 1.3 {ratio} [facility] Serum or plasma anion gap de terminationOrdered By: Elizabeth Alvarado on 08-24-2023 Anion gap [Moles/Vol] 18.1 mmol/L 6.0-15.[address] [facility] Serum or plasma high density lipoprotein (HDL) cholesterol measurementOrdered By: Elizabeth Alvarado on 08-24-2023 Cholesterol in HDL [Mass/Vol] 60 mg/dL 23-92 [facility] Comment on above: HDL CHOL ATP-III CLA SSIFICATION Cardiovascular RiskHDL > or equal to 60 mg/dL LOWHDL < 40 mg/dL HIGH Serum or plasma total choles terol/high density lipoprotein (HDL) cholesterol mass ratOrdered By: Elizabeth Alvarado on 08-24-2023 Cholesterol.total/Choles terol in HDL [Mass ratio] 2.7 {ratio} <5.0 [facility] Sodium [Moles/volume] in Ser um or PlasmaOrdered By: Elizabeth Alvarado on 08-24-2023 Sodium [Moles/Vol] 139 mmol/L 136-145 [facility] Thyrotropin [Units/volume] i n Serum or PlasmaOrdered By: Elizabeth Alvarado on 08-24-2023 TSH Qn 2.40 m[IU]/L 0.45-5.33 [facility] Triglyceride [Mass/volume] i n Serum or PlasmaOrdered By: Elizbaeth Alvarado on 08-24-2023 Triglyceride [Mass/Vol] 112 mg/dL 0-149 [facility] Comment on above: TRIG ATP III CLASSIF ICATIONTRIG less than 150 mg/dL NormalTRIG 150-199 mg/dL Borderline highTRIG 200-500 mg/dL High TRIG greater than 500 mg/dL Very highStandard traceable to the Center for Disease Conrtrol and Prevention (CDC) test method. Urea nitrogen [Mass/volume] in Serum or PlasmaOrdered By: Elizabeth Alvarado on 08-24-2023 Urea nitrogen [Mass/Vol] 17 mg/dL 7-25 [facility] Urine microalbumin/creatinin e mass ratioOrdered By: Elizabeth Alvarado on 08-24-2023 Albumin/Creatinine DL <= 20 mg/L (U) [Mass ratio] TNP [facility] Comment on above: Test not performed WBC Auto (Bld) [#/Vol]Ordere d By: Elizabeth Alvarado on 08-24-2023 WBC (Bld) [#/Vol] 10.2 10*3/uL 3.8-11.6 [facility] Established Visit (Orthopaed ic Surgery)on 12-29-2022 [...] grammatical areas may persist related to the [employer] software Merrill Alejandro PA-C . Active Problems [...] Dec 29 2022 1:38PM EST (Author) [employer] Established Visit (Orthopaed ic Surgery)on 09-22-2022 Established [...] grammatical areas may persist related to the [employer] software Acosta Schafer MD Senior Attending Physician [facility] . Active Problems Problems Acute pain of [...] 1 tablet daily Results/Data Xray Knee 3 [id number] 01:48PMAcosta Schafer Test NameResultFlagReference Xray Knee 3 View(Report) FINAL REPORT Interpreted by: ACOSTA SCHAFER BURTON, MD 09/22/22 14:13 Patient Name: GEETA SHELTON STUDY: KNEE; 3 VIEWS; Right; 09/22/2022 1:48 pm INDICATION: pain Z96.659: Status post total knee replacement. ACCESSION NUMBER(S): [id number] ORDERING CLINICIAN: ACOSTA SCHAFER FINDINGS: Right knee [...] Status post total knee replacement. ACCESSION NUMBER(S): [id number] ORDERING CLINICIAN: ACOSTA SCHAFER FINDINGS: Right knee three views. Status post revision total knee replacement components in good position no signs of fracture dislocation or other bony abnormalities Electronically signed by: ACOSTA SCHAFER MD Normal [facility] Radiologyon 09-22-2022 XR Knee 3 Views Normal [facility] Work Phone: Alanine aminotransferase [En zymatic activity/volume] in Serum or PlasmaOrdered By: Zoey Ramirez on 08-17-2022 ALT [Catalytic activity/Vol] 45 U/L 7-52 [facility] Albumin [Mass/volume] in Ser um or PlasmaOrdered By: Zoey Ramirez on 08-17-2022 Albumin [Mass/Vol] 3.7 g/dL 2.9-4.4 [facility] Albumin [Mass/volume] in Ser um or Plasma by Bromocresol green (BCG) dye binding methoOrdered By: Zoey Ramirez on 08-17-2022 Albumin BCG dye [Mass/Vol] 4.1 g/dL 3.5-5.7 [facility] Albumin/Protein.total in 24 hour Urine by ElectrophoresisOrdered By: Zoey Ramirez on 08-17-2022 Albumin Elph (24H U) [Mass fraction] 59.9 % . [facility] Alkaline phosphatase [Enzyma tic activity/volume] in Serum or PlasmaOrdered By: Zoey Ramirez on 08-17-2022 ALP [Catalytic activity/Vol] 90 U/L 34-104 [facility] Aspartate aminotransferase [ Enzymatic activity/volume] in Serum or PlasmaOrdered By: Zoey Ramirez on 08-17-2022 AST [Catalytic activity/Vol] 40 U/L 13-39 [facility] Basophils Auto (Bld) [#/Vol] Ordered By: Zoey Ramirez on 08-17-2022 Basophils (Bld) [#/Vol] 0.1 10*3/uL 0.0-0.2 [facility] Basophils/100 WBC Auto (Bld) Ordered By: Zoey Ramirez on 08-17-2022 Basophils/100 WBC (Bld) 0.9 % . [facility] Bilirubin.total [Mass/volume ] in Serum or PlasmaOrdered By: Zoey Ramirez on 08-17-2022 Bilirubin [Mass/Vol] 0.4 mg/dL 0.3-1.0 [facility] Calcium [Mass/volume] in Ser um or PlasmaOrdered By: Zoey Ramirez on 08-17-2022 Calcium [Mass/Vol] 9.1 mg/dL 8.6-10.3 [facility] Carbon dioxide, total [Moles /volume] in Serum or PlasmaOrdered By: Zoey Ramirez on 08-17-2022 CO2 [Moles/Vol] 27.9 mmol/L 21.0-31.0 [facility] Chloride [Moles/volume] in S hugo or PlasmaOrdered By: Zoey Ramirez on 08-17-2022 Chloride [Moles/Vol] 100 mmol/L 98-107 [facility] Creatinine [Mass/volume] in Serum or PlasmaOrdered By: Zeoy Ramirez on 08-17-2022 Creatinine [Mass/Vol] 0.71 mg/dL 0.60-1.20 [facility] Eosinophils Auto (Bld) [#/Vo l]Ordered By: oZey Ramirez on 08-17-2022 Eosinophils (Bld) [#/Vol] 0.3 10*3/uL 0.0-0.45 [facility] Eosinophils/100 WBC Auto (Bl d)Ordered By: Zoey Ramirez on 08-17-2022 Eosinophils/100 WBC (Bld) 3.1 % . [facility] Erythrocyte distribution wid th Auto (RBC) [Ratio]Ordered By: Zoey Ramirez on 08-17-2022 Erythrocyte distribution width (RBC) [Ratio] 16.5 % 11.9-15.3 [facility] Ferritin [Mass/volume] in Se rum or PlasmaOrdered By: Zoey Ramirez on 08-17-2022 Ferritin [Mass/Vol] 85.3 ng/mL 11.0-306.8 [facility] Folate [Mass/volume] in Seru m or PlasmaOrdered By: Zoey Ramirez on 08-17-2022 Folate [Mass/Vol] 15.1 ng/mL >5.9 [facility] Comment on above: Folate reference ran ge: >5.9 ng/mlThe WHO technical consultation on folate and vitamin [id number] has determined that folate concentrations lessthan 4 ng/ml are considered deficient. Gamma globulin/Protein.total in 24 hour Urine by ElectrophoresisOrdered By: Zoey Ramirez on 08-17-2022 Gamma globulin Elph (24H U) [Mass fraction] 15.3 % . [facility] Globulin Calc (S) [Mass/Vol] Ordered By: Zoey Ramirez on 08-17-2022 Globulin (S) [Mass/Vol] 4.0 g/dL [facility] Glucose [Mass/volume] in Ser um or PlasmaOrdered By: Zoey Ramirez on 08-17-2022 Glucose [Mass/Vol] 142 mg/dL 70-100 [facility] Comment on above: ADA recommended refe rence rangeRandom Glucose Reference Range is dependent on time and content of last meal. Glucose of more than 200 mg/dL in a nonstressed, ambulatory subject supports the diagnosis of Diabetes Mellitus. Hematocrit Auto (Bld) [Volum e fraction]Ordered By: Zoey Ramirez on 08-17-2022 Hematocrit (Bld) [Volume fraction] 41.3 % 34.0-46.4 [facility] Hemoglobin [Mass/volume] in BloodOrdered By: Zoey Ramirez on 08-17-2022 Hemoglobin (Bld) [Mass/Vol] 13.2 g/dL 11.8-15.4 [facility] IgA [Mass/volume] in Serum o r PlasmaOrdered By: Zoey Ramirez on 08-17-2022 IgA [Mass/Vol] 498 mg/dL 87-352 [facility] IgG [Mass/volume] in Serum o r PlasmaOrdered By: Zoey Ramirez on 08-17-2022 IgG [Mass/Vol] 1834 mg/dL 586-1602 [facility] IgM [Mass/volume] in Serum o r PlasmaOrdered By: Zoey Ramirez on 08-17-2022 IgM [Mass/Vol] 124 mg/dL 26-217 [facility] Comment on above: Performed at: [employer] [facility] [address] [id number] Director: Jeyson Duncan PhD, Phone: [phone] Immunofixation for UrineOrde red By: Zoey Ramirez on 08-17-2022 Interpretation Immunofixation (U) [Interp] See comment . [facility] Comment on above: No monoclonality det ected.Performed at: [employer] [facility] [address] [id number] Director: Jeyson Duncan PhD, Phone: [email or web address] Immunoglobulin light chains. kappa.free [Mass/volume] in SerumOrdered By: Zoey Ramirez on 08-17-2022 Immunoglobulin light chains.kappa.free (S) [Mass/Vol] 47.1 mg/L 3.3-19.4 [facility] Immunoglobulin light chains. kappa.free/Immunoglobulin light chains.lambda.free [MassOrdered By: Zoey Ramirez on 08-17-2022 Immunoglobulin light chains.kappa.free/Immuno globulin light chains.lambda.free (S) [Mass ratio] 1.65 0.26-1.65 [facility] Comment on above: Performed at: - [address] [id number] Director: Jeyson Duncan PhD, Phone: [phone] Immunoglobulin light chains. lambda.free [Mass/volume] in Serum or PlasmaOrdered By: Zoey Ramirez on 08-17-2022 Immunoglobulin light chains.lambda.free [Mass/Vol] 28.6 mg/L 5.7-26.3 [facility] Iron [Mass/volume] in Serum or PlasmaOrdered By: Zoey Ramirez on 08-17-2022 Iron [Mass/Vol] 41 ug/dL 50-212 [facility] Iron binding capacity [Mass/ volume] in Serum or PlasmaOrdered By: Zoey Ramirez on 08-17-2022 Iron binding capacity [Mass/Vol] 344 ug/dL 255-450 [facility] Iron saturation [Mass Fracti on] in Serum or PlasmaOrdered By: Zoey Ramirez on 08-17-2022 Iron saturation [Mass fraction] 11.9 % 20-50 [facility] Leukocytes [#/volume] correc silverio for nucleated erythrocytes in Blood by Automated counOrdered By: Zoey Ramirez on 08-17-2022 WBC corrected for nucl RBC Auto (Bld) [#/Vol] 9.9 10*3/uL 3.8-11.6 [facility] Lymphocytes Auto (Bld) [#/Vo l]Ordered By: Zoey Ramirez on 08-17-2022 Lymphocytes (Bld) [#/Vol] 2.8 10*3/uL 1.00-4.8 [facility] Lymphocytes/100 WBC Auto (Bl d)Ordered By: Zoey Ramirez on 08-17-2022 Lymphocytes/100 WBC (Bld) 28.5 % . [facility] MCH Auto (RBC) [Entitic mass ]Ordered By: Zoey Ramirez on 08-17-2022 MCH (RBC) [Entitic mass] 24.9 pg 24.7-34.3 [facility] MCHC Auto (RBC) [Mass/Vol]Or dered By: Zoey Ramirez on 08-17-2022 MCHC (RBC) [Mass/Vol] 32.0 g/dL 32.0-35.0 [facility] MCV Auto (RBC) [Entitic vol] Ordered By: Zoey Ramirez on 08-17-2022 MCV (RBC) [Entitic vol] 77.8 fL 80-100 [facility] Monocytes Auto (Bld) [#/Vol] Ordered By: Zoey Ramirez on 08-17-2022 Monocytes (Bld) [#/Vol] 0.6 10*3/uL 0.0-0.8 [facility] Monocytes/100 WBC Auto (Bld) Ordered By: Zoey Ramirez on 08-17-2022 Monocytes/100 WBC (Bld) 5.9 % . [facility] Neutrophils Auto (Bld) [#/Vo l]Ordered By: Zoey Ramirez on 08-17-2022 Neutrophils (Bld) [#/Vol] 6.1 10*3/uL 1.8-7.7 [facility] Neutrophils/100 WBC Auto (Bl d)Ordered By: Zoey Ramirez on 08-17-2022 Neutrophils/100 WBC (Bld) 61.6 % . [facility] No Panel InformationOrdered By: Zoey Ramirez on 08-17-2022 Estimated GFR (CKD-EPI) > 60.0 mL/Min [facility] Creatinine Clearance (Chem 122.85 [facility] Protein Electrophoresis M-Antwan Not observed g/dL Not Observed [facility] Protein Electrophoresis Note See comment . [facility] Comment on above: Protein electrophore sis scan will follow via computer,mail, or mimeograph operator delivery.Performed at: [address] [id number] Director: Jeyson Duncan PhD, Phone: [phone] Serum Immunofixation Comment: . [facility] Comment on above: Presence of monoclon al protein is unclear at this time. Suggestrepeat in 3 to 6 months if clinically indicated. Urine Random Prot Electrophor Note See comment . [facility] Comment on above: Protein electrophore sis scan will follow via computer,mail, or mimeograph operator delivery.Performed at: [address] [id number] Director: Jeyson Duncan PhD, Phone: [phone] Nucleated erythrocytes [Pres ence] in Blood by Automated countOrdered By: Zoey Ramirez on 08-17-2022 Nucleated RBC Auto Ql (Bld) 0.1 /100{WBC} 0-0.5 [facility] Platelet mean volume Auto (B ld) [Entitic vol]Ordered By: Zoey Ramirez on 08-17-2022 Platelet mean volume (Bld) [Entitic vol] 8.5 fL 6.3-10.7 [facility] Platelets Auto (Bld) [#/Vol] Ordered By: Zoey Ramirez on 08-17-2022 Platelets (Bld) [#/Vol] 345 10*3/uL 150-450 [facility] Potassium [Moles/volume] in Serum or PlasmaOrdered By: Zoey Ramirez on 08-17-2022 Potassium [Moles/Vol] 4.7 mmol/L 3.5-5.1 [facility] Protein [Mass/volume] in Ser um or PlasmaOrdered By: Zoey Ramirez on 08-17-2022 Protein [Mass/Vol] 8.1 g/dL 6.4-8.9 [facility] Protein [Mass/Vol] 8.0 g/dL 6.0-8.5 [facility] Protein [Mass/volume] in Uri neOrdered By: Zoey Ramirez on 08-17-2022 Protein (U) [Mass/Vol] 75.0 mg/dL Not Estab. [facility] Protein.monoclonal/Protein.t otal in 24 hour Urine by ElectrophoresisOrdered By: Zoey Ramirez on 08-17-2022 Protein.monoclonal Elph (24H U) [Mass fraction] Not observed % Not Observed [facility] RBC Auto (Bld) [#/Vol]Ordere d By: Zoey Ramirez on 08-17-2022 RBC (Bld) [#/Vol] 5.31 10*6/uL 3.60-5.00 [facility] Serum globulin measurement ( mass/volume)Ordered By: Zoey Ramirez on 08-17-2022 Globulin (S) [Mass/Vol] 4.3 g/dL 2.2-3.9 [facility] Serum or plasma albumin/glob ulin mass ratioOrdered By: Zoey Ramirez on 08-17-2022 Albumin/Globulin [Mass ratio] 1.0 {ratio} [facility] Albumin/Globulin [Mass ratio] 0.9 {ratio} 0.7-1.7 [facility] Serum or plasma alpha 1 glob ulin measurement by electrophoresis (mass/volume)Ordered By: Zoey Ramirez on 08-17-2022 Alpha 1 globulin Elph [Mass/Vol] 0.3 g/dL 0.0-0.4 [facility] Serum or plasma alpha 2 glob ulin measurement by electrophoresis (mass/volume)Ordered By: Zoey Ramirez on 08-17-2022 Alpha 2 globulin Elph [Mass/Vol] 0.8 g/dL 0.4-1.0 [facility] Serum or plasma anion gap de terminationOrdered By: Zoey Ramirez on 08-17-2022 Anion gap [Moles/Vol] 12.8 mmol/L 6.0-15.[address] [facility] Serum or plasma beta globuli n measurement by electrophoresis (mass/volume)Ordered By: Zoey Ramirez on 08-17-2022 Beta globulin Elph [Mass/Vol] 1.3 g/dL 0.7-1.3 [facility] Serum or plasma gamma globul in measurement by electrophoresis (mass/volume)Ordered By: Zoey Ramirez on 08-17-2022 Gamma globulin Elph [Mass/Vol] 1.9 g/dL 0.4-1.8 [facility] Sodium [Moles/volume] in Ser um or PlasmaOrdered By: Zoey Ramirez on 08-17-2022 Sodium [Moles/Vol] 136 mmol/L 136-145 [facility] Transferrin [Mass/volume] in Serum or PlasmaOrdered By: Zoey Ramirez on 08-17-2022 Transferrin [Mass/Vol] 246 mg/dL 203-[address] [facility] Urea nitrogen [Mass/volume] in Serum or PlasmaOrdered By: Zoey Ramirez on 08-17-2022 Urea nitrogen [Mass/Vol] 23 mg/dL 7-25 [facility] Urine alpha 1 globulin/total protein by electrophoresisOrdered By: Zoey Ramirez on 08-17-2022 Alpha 1 globulin Elph (U) [Mass fraction] 4.5 % . [facility] Urine alpha 2 globulin/total protein ratio by electrophoresisOrdered By: Zoey Ramirez on 08-17-2022 Alpha 2 globulin Elph (U) [Mass fraction] 7.7 % . [facility] Urine beta globulin measurem ent by electrophoresis (mass/volume)Ordered By: Zoey Ramirez on 08-17-2022 Beta globulin Elph (U) [Mass/Vol] 12.6 % . [facility] Vitamin B12 ser/plasOrdered By: Zoey Ramirez on 08-17-2022 Cobalamin (Vitamin B12) [Mass/Vol] 387 pg/mL 180-914 [facility] WBC Auto (Bld) [#/Vol]Ordere d By: Zoey Ramirez on 08-17-2022 WBC (Bld) [#/Vol] 9.9 10*3/uL 3.8-11.6 [facility] Established Visit (Orthopaed ic Surgery)on 08-11-2022 [...] to do her outpatient physical therapy at [facility]. She has a few visits [...] grammatical areas may persist related to the [employer] software Merrill Alejandro PA-C . Active Problems [...] Aug 11 2022 10:34AM EST (Author) Normal [employer] Albumin [Mass/volume] in Ser um or PlasmaOrdered By: Lorrie Baig on 07-23-2022 Albumin [Mass/Vol] 3.3 g/dL 2.9-4.4 [facility] Creatine kinase [Enzymatic a ctivity/volume] in Serum or PlasmaOrdered By: Lorrie Baig on 07-23-2022 CK [Catalytic activity/Vol] 51 U/L 30-223 [facility] Erythrocyte sedimentation ra te by Photometric methodOrdered By: Lorrie Baig on 07-23-2022 ESR Photometric method (Bld) [Velocity] 65 mm/hr 0-29 [facility] Folate [Mass/volume] in Seru m or PlasmaOrdered By: Lorrie Baig on 07-23-2022 Folate [Mass/Vol] 12.8 ng/mL >5.9 [facility] Comment on above: Folate reference ran ge: >5.9 ng/mlThe WHO technical consultation on folate and vitamin [id number] has determined that folate concentrations lessthan 4 ng/ml are considered deficient. Magnesium [Mass/volume] in S hugo or PlasmaOrdered By: Lorrie Baig on 07-23-2022 Magnesium [Mass/Vol] 1.8 mg/dL 1.9-2.7 [facility] No Panel InformationOrdered By: Lorrie Baig on 07-23-2022 Protein Electrophoresis Interpret See comment . [facility] Comment on above: Faint band in gamma region suspicious for monoclonalimmunoglobulin. This band may represent a benign spike asseen in older people or could be a paraprotein as seen inMultiple Myeloma, Waldenstrom's Macroglobulinemia orLymphoma. Depending on clinical circumstances, furtherdiagnostic studies may include serum immunofixation orserum free light chain quantitation.Performed at: [address] [id number] Director: Jeyson Duncan PhD, Phone: [phone] Protein Electrophoresis M-Antwan Comment: g/dL Not Observed [facility] Comment on above: ASYMMETRICAL GAMMA Protein Electrophoresis Note See comment . [facility] Comment on above: Protein electrophore sis scan will follow via computer,mail, or mimeograph operator delivery. Phosphate [Mass/volume] in S hugo or PlasmaOrdered By: Lorrie Baig on 07-23-2022 Phosphate [Mass/Vol] 4.5 mg/dL 3.7-7.2 [facility] Protein [Mass/volume] in Ser um or PlasmaOrdered By: Lorrie Baig on 07-23-2022 Protein [Mass/Vol] 7.2 g/dL 6.0-8.5 [facility] Serum globulin measurement ( mass/volume)Ordered By: Lorrie Baig on 07-23-2022 Globulin (S) [Mass/Vol] 3.9 g/dL 2.2-3.9 [facility] Serum or plasma albumin/glob ulin mass ratioOrdered By: Lorrie Baig on 07-23-2022 Albumin/Globulin [Mass ratio] 0.8 {ratio} 0.7-1.7 [facility] Serum or plasma alpha 1 glob ulin measurement by electrophoresis (mass/volume)Ordered By: Lorrie Baig on 07-23-2022 Alpha 1 globulin Elph [Mass/Vol] 0.3 g/dL 0.0-0.4 [facility] Serum or plasma alpha 2 glob ulin measurement by electrophoresis (mass/volume)Ordered By: Lorrie Baig on 07-23-2022 Alpha 2 globulin Elph [Mass/Vol] 0.7 g/dL 0.4-1.0 [facility] Serum or plasma beta globuli n measurement by electrophoresis (mass/volume)Ordered By: Lorrie Baig on 07-23-2022 Beta globulin Elph [Mass/Vol] 1.2 g/dL 0.7-1.3 [facility] Serum or plasma gamma globul in measurement by electrophoresis (mass/volume)Ordered By: Lorrie Baig on 07-23-2022 Gamma globulin Elph [Mass/Vol] 1.7 g/dL 0.4-1.8 [facility] Thyrotropin [Units/volume] i n Serum or PlasmaOrdered By: Lorrie Baig on 07-23-2022 TSH Qn 4.76 m[IU]/L 0.45-5.33 [facility] Vitamin B12 ser/plasOrdered By: Lorrie Baig on 07-23-2022 Cobalamin (Vitamin B12) [Mass/Vol] 358 pg/mL 180-914 [facility] KNEE 3 VIEWSon 07-14-2022 KNEE 3 VIEWS Patient Name: GEETA SHELTON STUDY: KNEE; 3 VIEWS; Right; 07/14/2022 8:47 am INDICATION: pain Z96.659: Status post total knee replacement. ACCESSION NUMBER(S): [id number] ORDERING CLINICIAN: ACOSTA SCHAFER FINDINGS: Right knee three views. Status post revision type total knee replacement components in good position no signs of fracture dislocation or other bony abnormality dee in the soft tissues anteriorly. Electronically signed by: ACOSTA SCHAFER MD [facility] Post Op (Orthopaedic Surgery )on [...] will most likely do this at [facility] in [place]. Physical exam General: No acute distress and [...] grammatical areas may persist related to the [employer] software Merrill Alejandro PA-C . Active Problems Problems Acute pain of both knees (338.19,719.46) (M25.561,M25.562) Status post total knee replacement (V43.65) (Z96.659) Allergies Medication Penicillins Recorded By: Tarsha Murray; 05/18/2022 8:47:33 AM Current Meds Medication NameInstruction Xarelto 10 MG Oral TabletTake 1 tablet daily Results/Data Xray Knee 3 [id number] 08:47AMSAcosta steward Test NameResultFlagReference Xray Knee 3 View(Report) FINAL REPORT Interpreted by: ACOSTA SCHAFER BURTON, MD 07/14/22 08:49 Patient Name: GEETA SHELTON STUDY: KNEE; 3 VIEWS; Right; 07/14/2022 8:47 am INDICATION: pain Z96.659: Status post total knee replacement. ACCESSION NUMBER(S): [id number] ORDERING CLINICIAN: ACOSTA SCHAFER FINDINGS: Right knee [...] Radiologyon 07-14-2022 XR Knee 3 Views Normal -[place] [facility] Work Phone: Basic Metabolic Panel Reflex Mgon 07-03-2022 Anion gap [Moles/Vol] 10 mmol/L Normal 9-15 [facility] Comment on above: Performed By: #### B MPX #### [facility] [address] [place] [address] Calcium [Mass/Vol] 9.2 mg/dL Normal 8.5-9.9 [facility] Comment on above: Performed By: #### B MPX #### [facility] [address] [place] [address] Chloride [Moles/Vol] 100 mmol/L Normal 95-107 [facility] Comment on above: Performed By: #### B MPX #### [facility] [address] [place] [address] CO2 [Moles/Vol] 27 mmol/L Normal 20-31 [facility] Comment on above: Performed By: #### B MPX #### [facility] [address] [place] [address] Creatinine [Mass/Vol] 0.51 mg/dL Normal 0.50-0.90 [facility] Comment on above: Performed By: #### B MPX #### [facility] [address] [place] [address] GFR >60.0 Normal >60 [facility] Comment on above: Result Comment: Pedi atric [...] secretion. Performed By: #### B MPX #### [facility] [address] [place] [address] Glucose [Mass/Vol] 132 mg/dL Critically high 70-99 [facility] Comment on above: Performed By: #### B MPX #### [facility] [address] [place] [address] Magnesium [Moles/Vol] 4.6 mmol/L Normal 3.4-4.9 [facility] Comment on above: Performed By: #### B MPX #### [facility] [address] [place] [address] Sodium [Moles/Vol] 137 mmol/L Normal 135-144 [facility] Comment on above: Performed By: #### B MPX #### [facility] [address] [place] [address] Urea nitrogen [Mass/Vol] 12 mg/dL Normal 6-20 [facility] Comment on above: Performed By: #### B MPX #### [facility] [address] [place] [address] Basic Metabolic Panel w/ Ref hillary to MGon 07-03-2022 Anion gap [Moles/Vol] 10 mmol/L [facility] [employer] Calcium [Mass/Vol] 9.2 mg/dL 8.5 - 9.9 mg/dL [facility] [employer] Chloride [Moles/Vol] 100 mmol/L [facility] [employer] CO2 [Moles/Vol] 27 mmol/L [facility] [employer] Creatinine [Mass/Vol] 0.51 mg/dL 0.50 - 0.90 mg/dL [facility] GFR/1.73 sq M.predicted MDRD (S/P/Bld) [Vol rate/Area] 60 - [facility] Comment on above: Pediatric calculator link https://www.kidney.org/professionals/kdoqi/gfr_calculatorped [...] 132 mg/dL High 70 - 99 mg/dL [facility] Interpretation and review of laboratory results Abnormal [facility] Potassium reflex Magnesium 4.6 [facility] Sodium [Moles/Vol] 137 mmol/L [facility] Urea nitrogen (BldV) [Mass/Vol] 12 mg/dL 6 - 20 mg/dL [facility] CBCon 07-03-2022 Hematocrit (Bld) [Volume fraction] 39.9 % 37.0 - 47.0 % [facility] Hemoglobin (Bld) [Mass/Vol] 12.9 g/dL 12.0 - 16.0 g/dL [facility] Interpretation and review of laboratory results Abnormal [facility] MCH (RBC) [Entitic mass] 25.7 pg Low 27. 0 - 31.3 pg [facility] MCHC (RBC) [Mass/Vol] 32.3 % Low 33.0 - 37.0 % [facility] MCV (RBC) [Entitic vol] 79.6 fL 79.4 - 94.8 fL [facility] Platelet distribution width (Bld) [Ratio] 16.5 % High 11.5 - 14.5 % [facility] Platelets (Bld) [#/Vol] 230 10*3/uL 130 - 400 K/uL [facility] RBC (Bld) [#/Vol] 5.02 10*6/uL [facility] WBC (Bld) [#/Vol] 9.2 10*3/uL 4.8 - 10.8 K/uL [facility] CBC With Platelet No Differe ntialon 07-03-2022 Erythrocyte distribution width (RBC) [Ratio] 16.5 % Critically high 11.5-14.5 [facility] Comment on above: Performed By: #### C BCND #### [facility] [address] [place] [address] Hematocrit (Bld) [Volume fraction] 39.9 % Normal 37.0-47.0 [facility] Comment on above: Performed By: #### C BCND #### [facility] [address] [place] [address] Hemoglobin (Bld) [Mass/Vol] 12.9 g/dL Normal 12.0-16.0 [facility] Comment on above: Performed By: #### C BCND #### [facility] [address] [place] [address] MCH (RBC) [Entitic mass] 25.7 pg Low 27.0-31.3 [facility] Comment on above: Performed By: #### C BCND #### [facility] [address] [place] [address] MCHC 32.3 % Low 33.0-37.0 [facility] Comment on above: Performed By: #### C BCND #### [facility] [address] [place] [address] MCV (RBC) [Entitic vol] 79.6 fL Normal 79.4-94.8 [facility] Comment on above: Performed By: #### C BCND #### [facility] [address] [place] [address] Platelets (Bld) [#/Vol] 230 10*3/uL Normal 130-400 [facility] Comment on above: Performed By: #### C BCND #### [facility] [address] [place] [address] RBC (Bld) [#/Vol] 5.02 10*6/uL Normal 4.20-5.40 [facility] Comment on above: Performed By: #### C BCND #### [facility] [address] [place] [address] WBC (Bld) [#/Vol] 9.2 10*3/uL Normal 4.8-10.8 [facility] Comment on above: Performed By: #### C BCND #### [facility] [address] [place] [address] Basic Metabolic Panel Reflex Mgon 07-02-2022 Anion gap [Moles/Vol] 8 mmol/L Low 9-15 [facility] Comment on above: Order Comment: Daja ction has been rescheduled by HERAM at 07/02/2022 05:49 Reason: Come back last per rn fouzia Performed By: #### B MPX #### [facility] [address] [place] [address] Calcium [Mass/Vol] 8.9 mg/dL Normal 8.5-9.9 [facility] Comment on above: Order Comment: Daja ction has been rescheduled by HERAM at 07/02/2022 05:49 Reason: Come back last per rn fouzia Performed By: #### B MPX #### [facility] [address] [place] [address] Chloride [Moles/Vol] 100 mmol/L Normal 95-107 [facility] Comment on above: Order Comment: Daja ction has been rescheduled by HERAM at 07/02/2022 05:49 Reason: Come back last per rn fouzia Performed By: #### B MPX #### [facility] [address] [place] [address] CO2 [Moles/Vol] 27 mmol/L Normal 20-31 [facility] Comment on above: Order Comment: Daja ction has been rescheduled by HERAM at 07/02/2022 05:49 Reason: Come back last per rn fouzia Performed By: #### B MPX #### [facility] [address] [place] [address] Creatinine [Mass/Vol] 0.61 mg/dL Normal 0.50-0.90 [facility] Comment on above: Order Comment: Daja ction has been rescheduled by HERAM at 07/02/2022 05:49 Reason: Come back last per rn fouzia Performed By: #### B MPX #### [facility] [address] [place] [address] GFR >60.0 Normal >60 [facility] Comment on above: Order Comment: Daja ction [...] secretion. Performed By: #### B MPX #### [facility] [address] [place] [address] Glucose [Mass/Vol] 144 mg/dL Critically high 70-99 [facility] Comment on above: Order Comment: Daja zamarripa has been rescheduled by HERAM at 07/02/2022 05:49 Reason: Come back last per kip reinoso Performed By: #### B MPX #### [facility] [address] [place] [address] Magnesium [Moles/Vol] 4.8 mmol/L Normal 3.4-4.9 [facility] Comment on above: Order Comment: Daja zamarripa has been rescheduled by HERAM at 07/02/2022 05:49 Reason: Come back last per kip reinoso Performed By: #### B MPX #### [facility] [address] [place] [address] Sodium [Moles/Vol] 135 mmol/L Normal 135-144 [facility] Comment on above: Order Comment: Daja ction has been rescheduled by HERAM at 07/02/2022 05:49 Reason: Come back last per kip reinoso Performed By: #### B MPX #### [facility] [address] [place] [address] Urea nitrogen [Mass/Vol] 21 mg/dL Critically high 6-20 [facility] Comment on above: Order Comment: Daja ction has been rescheduled by HERAM at 07/02/2022 05:49 Reason: Come back last per kip reinoso Performed By: #### B MPX #### [facility] [address] [place] [address] Basic Metabolic Panel w/ Ref hillary to MGon 07-02-2022 Anion gap [Moles/Vol] 8 mmol/L Low [facility] Calcium [Mass/Vol] 8.9 mg/dL 8.5 - 9.9 mg/dL [facility] Chloride [Moles/Vol] 100 mmol/L [facility] CO2 [Moles/Vol] 27 mmol/L [facility] Creatinine [Mass/Vol] 0.61 mg/dL 0.50 - 0.90 mg/dL [facility] GFR/1.73 sq M.predicted MDRD (S/P/Bld) [Vol rate/Area] 60 - PINF [facility] Comment on above: Pediatric calculator [...] 144 mg/dL High 70 - 99 mg/dL [facility] Interpretation and review of laboratory results Abnormal [facility] Potassium reflex Magnesium 4.8 [facility] Sodium [Moles/Vol] 135 mmol/L [facility] Urea nitrogen (BldV) [Mass/Vol] 21 mg/dL High 6 - 20 mg/dL [facility] Collection has been rescheduled by VALDO at 07/02/2022 05:49 Reason: Come back last per kip reinoso [facility] CBCon 07-02-2022 Hematocrit (Bld) [Volume fraction] 40.3 % 37.0 - 47.0 % [facility] Hemoglobin (Bld) [Mass/Vol] 12.9 g/dL 12.0 - 16.0 g/dL [facility] Interpretation and review of laboratory results Abnormal [facility] MCH (RBC) [Entitic mass] 25.5 pg Low 27. 0 - 31.3 pg [facility] MCHC (RBC) [Mass/Vol] 32.1 % Low 33.0 - 37.0 % [facility] MCV (RBC) [Entitic vol] 79.6 fL 79.4 - 94.8 fL [facility] Platelet distribution width (Bld) [Ratio] 16.3 % High 11.5 - 14.5 % [facility] Platelets (Bld) [#/Vol] 230 10*3/uL 130 - 400 K/uL [facility] RBC (Bld) [#/Vol] 5.06 10*6/uL [facility] WBC (Bld) [#/Vol] 9.1 10*3/uL 4.8 - 10.8 K/uL [facility] Collection has been rescheduled by VALDO at 07/02/2022 05:49 Reason: Come back last per kip galdamezfouzia [facility] CBC With Platelet No Differe ntialon 07-02-2022 Erythrocyte distribution width (RBC) [Ratio] 16.3 % Critically high 11.5-14.5 [facility] Comment on above: Order Comment: Daja zamarripa has been rescheduled by VALDO at 07/02/2022 05:49 Reason: Come back last per kip reinoso Performed By: #### C BCND #### [facility] [address] [place] [address] Hematocrit (Bld) [Volume fraction] 40.3 % Normal 37.0-47.0 [facility] Comment on above: Order Comment: Daja zamarripa has been rescheduled by VALDO at 07/02/2022 05:49 Reason: Come back last per kip reinoso Performed By: #### C BCND #### [facility] [address] [place] [address] Hemoglobin (Bld) [Mass/Vol] 12.9 g/dL Normal 12.0-16.0 [facility] Comment on above: Order Comment: Daja zamarripa has been rescheduled by HERAM at 07/02/2022 05:49 Reason: Come back last per rn fouzia Performed By: #### C BCND #### [facility] [address] [place] [address] MCH (RBC) [Entitic mass] 25.5 pg Low 27.0-31.3 [facility] Comment on above: Order Comment: Daja zamarripa has been rescheduled by HERAM at 07/02/2022 05:49 Reason: Come back last per rn fouzia Performed By: #### C BCND #### [facility] [address] [place] [address] MCHC 32.1 % Low 33.0-37.0 [facility] Comment on above: Order Comment: Daja zamarripa has been rescheduled by HERAM at 07/02/2022 05:49 Reason: Come back last per rn fouzia Performed By: #### C BCND #### [facility] [address] [place] [address] MCV (RBC) [Entitic vol] 79.6 fL Normal 79.4-94.8 [facility] Comment on above: Order Comment: Daja zamarripa has been rescheduled by HERAM at 07/02/2022 05:49 Reason: Come back last per rn fouzia Performed By: #### C BCND #### [facility] [address] [place] [address] Platelets (Bld) [#/Vol] 230 10*3/uL Normal 130-400 [facility] Comment on above: Order Comment: Daja zamarripa has been rescheduled by HERAM at 07/02/2022 05:49 Reason: Come back last per rn fouzia Performed By: #### C BCND #### [facility] [address] [place] [address] RBC (Bld) [#/Vol] 5.06 10*6/uL Normal 4.20-5.40 [facility] Comment on above: Order Comment: Daja zamarripa has been rescheduled by HERAM at 07/02/2022 05:49 Reason: Come back last per rn fouzia Performed By: #### C BCND #### [facility] [address] [place] [address] WBC (Bld) [#/Vol] 9.1 10*3/uL Normal 4.8-10.8 [facility] Comment on above: Order Comment: Daja zamarripa has been rescheduled by HERAM at 07/02/2022 05:49 Reason: Come back last per rn fouzia Performed By: #### C BCND #### [facility] [address] [place] [address] US DUP UPPER EXTREMITY LEFT VENOUSon 07-02-2022 [...] Jean Sifuentes MD 07/02/22 Final result Normal [facility] No evidence of DVT. [facility] EXAMINATION: VENOUS ULTRASOUND OF THE LEFT [...] normal color flow study and spectral analysis. [facility] RADIOLOGY Jean Sifuentes MD - 07/02/2022 [...] spectral analysis. IMPRESSION: No evidence of DVT. [employer] Phone: [employer] Phone: Radiology Study observation (narrative) [employer] Phone: XR KNEE RIGHT (1-2 VIEWS)on 07-01-2022 [...] Jean Sifuentes MD 07/01/22 Final result Normal [facility] Normal postsurgical appearance [facility] RADIOLOGY EXAMINATION: TWO XRAY VIEWS OF [...] are intact. Overlying surgical dee are seen [facility] RADIOLOG[facility] Jean Sifuentes MD - 07/01/2022 [...] dee are seen IMPRESSION: Normal postsurgical appearance [facility] Work Phone: Radiology Study observation (narrative) [employer] Work Phone: XR KNEE RIGHT (1-2 VIEWS)Ord ered By: Jean Sifuentes on 07-01-2022 [facility] Work Phone: MRSA DNA Probe, Nasalon MRSA, DNA, Nasal Negative NEG [employer] Comment on above: NEGATIVE: MRSA DNA n ot detected by nucleic acid amplification. Results should be used as an adjunct to nosocomial control efforts to identify patients needing enhanced precautions. The test is not intended to identify patients with staphylococcal infections. Results should not be used to guide or monitor treatment for MRSA infections. [employer] [address] [place] [id number] Specimen Description Swab [facility] MRSA, DNA, Nasalon MRSA, DNA, Nasal Negative Normal NEG [facility] Comment on above: Result Comment: NEGA TIVE: MRSA DNA not detected by nucleic acid amplification. Results should be used as an adjunct to nosocomial control efforts to identify patients needing enhanced precautions. The test is not intended to identify patients with staphylococcal infections. Results should not be used to guide or monitor treatment for MRSA infections. [employer] [address] [place], [place] [id number] ([phone] Performed By: #### I MRSA #### [facility] [address] [place] [address] EKG 12 LeadOrdered By: Leigh Ann Nash on 06-25-2022 Atrial Rate 73 BPM [facility] Work Phone: P [place] 33 degrees [employer] Work Phone: P-R Interval 160 ms [facility] Work Phone: Q-T Interval 406 ms [facility] Work Phone: QRS Duration 102 ms [facility] Work Phone: QTc Calculation (Bazett) 447 ms [facility] Work Phone: R [place] 74 degrees [employer] Work Phone: T [place] 65 degrees [facility] Work Phone: Ventricular Rate 73 BPM [employer] [employer] [employer] Work Phone: [employer] Work Phone: EKG 12 Leadon 06-25-2022 Normal sinus rhythm Incomplete right bundle branch block Confirmed by LEIGH ANN NASH ([id number]) on 06/25/2022 6:49:48 PM Leigh Ann Sumner F, DO - 06/25/2022 Normal sinus rhythm Incomplete right bundle branch block Confirmed by LEIGH ANN NASH ([id number]) on 06/25/2022 6:49:48 PM [facility] Work Phone: Established Visit (Orthopaed ic Surgery)on [...] plans on performing outpatient physical therapy at [facility] in [place]. All of the patient's questions and concerns were answered. This note was prepared using voice recognition software. The details of this note are correct and have been reviewed, and corrected to the best of my ability. Some grammatical areas may persist related to the [employer] software Merrill Alejandro PA-C . Active Problems Problems Acute pain of both knees (338.19,719.46) (M25.561,M25.562) Allergies Medication Penicillins Recorded By: Tarsha Murray; 05/18/2022 8:47:33 AM Signatures Electronically signed by : Merrill Alejandro PA-C; Jun 25 2022 2:21PM EST (Author) Normal [employer] PT Initial Evaluationon 03-0 PT Initial Evaluation [...] today's treatment with some difficulty. Evaluation Code: 52910 PT Eval: Low Complexity, 32 min(s). Resources provided today: education Signatures Electronically signed by : Natali Tyson, PT DPT; Jun 30 2022 10:08AM EST (Author) Normal [employer] APTTon 06-24-2022 aPTT Coag (Bld) [Time] 30.1 s [facility] Comment on above: Effective 02/27/2020: Heparin Therapeutic Range: 64.0 98.0 seconds. [facility] CBC With Platelet and Differ entialon 06-24-2022 Basophils (Bld) [#/Vol] 0.1 10*3/uL Normal 0.0-0.2 [facility] Comment on above: Performed By: #### C BCWD #### [facility] [address] [place] [address] Basophils/100 WBC (Bld) 0.6 % Normal [facility] Comment on above: Performed By: #### C BCWD #### [facility] [address] [place] [address] Eosinophils (Bld) [#/Vol] 0.1 10*3/uL Normal 0.0-0.7 [facility] Comment on above: Performed By: #### C BCWD #### [facility] [address] [place] [address] Eosinophils/100 WBC (Bld) 1.6 % Normal [facility] Comment on above: Performed By: #### C BCWD #### [facility] [address] [place] [address] Erythrocyte distribution width (RBC) [Ratio] 16.4 % Critically high 11.5-14.5 [facility] Comment on above: Performed By: #### C BCWD #### [facility] [address] [place] [address] Hematocrit (Bld) [Volume fraction] 44.4 % Normal 37.0-47.0 [facility] Comment on above: Performed By: #### C BCWD #### [facility] [address] [place] [address] Hemoglobin (Bld) [Mass/Vol] 14.2 g/dL Normal 12.0-16.0 [facility] Comment on above: Performed By: #### C BCWD #### [facility] [address] [place] [address] Lymphocytes (Bld) [#/Vol] 2.3 10*3/uL Normal 1.0-4.8 [facility] Comment on above: Performed By: #### C BCWD #### [facility] [address] [place] [address] Lymphocytes/100 WBC (Bld) 25.8 % Normal [facility] Comment on above: Performed By: #### C BCWD #### [facility] [address] [place] [address] MCH (RBC) [Entitic mass] 25.1 pg Low 27.0-31.3 [facility] Comment on above: Performed By: #### C BCWD #### [facility] [address] [place] [address] MCHC 32.0 % Low 33.0-37.0 [facility] Comment on above: Performed By: #### C BCWD #### [facility] [address] [place] [address] MCV (RBC) [Entitic vol] 78.5 fL Low 79.4-94.8 [facility] Comment on above: Performed By: #### C BCWD #### [facility] [address] [place] [address] Monocytes (Bld) [#/Vol] 0.8 10*3/uL Normal 0.2-0.8 [facility] Comment on above: Performed By: #### C BCWD #### [facility] [address] [place] [address] Monocytes/100 WBC (Bld) 9.4 % Normal [facility] Comment on above: Performed By: #### C BCWD #### [facility] [address] [place] [address] Neutrophils (Bld) [#/Vol] 5.6 10*3/uL Normal 1.4-6.5 [facility] Comment on above: Performed By: #### C BCWD #### [facility] [address] [place] [address] Neutrophils/100 WBC (Bld) 62.6 % Normal [facility] Comment on above: Performed By: #### C BCWD #### [facility] [address] [place] [address] Platelets (Bld) [#/Vol] 281 10*3/uL Normal 130-400 [facility] Comment on above: Performed By: #### C BCWD #### [facility] [address] [place] [address] RBC (Bld) [#/Vol] 5.66 10*6/uL Critically high 4.20-5.40 [facility] Comment on above: Performed By: #### C BCWD #### [facility] [address] [place] [address] WBC (Bld) [#/Vol] 8.9 10*3/uL Normal 4.8-10.8 [facility] Comment on above: Performed By: #### C BCWD #### [facility] [address] [place] [address] CBC with Auto Differentialon 06-24-2022 Basophils (Bld) [#/Vol] 0.1 10*3/uL 0.0 - 0.2 K/uL [facility] Basophils/100 WBC (Bld) 0.6 % [facility] Eosinophils (Bld) [#/Vol] 0.1 10*3/uL 0.0 - 0.7 K/uL [facility] Eosinophils/100 WBC (Bld) 1.6 % [facility] Hematocrit (Bld) [Volume fraction] 44.4 % 37.0 - 47.0 % [facility] Hemoglobin (Bld) [Mass/Vol] 14.2 g/dL 12.0 - 16.0 g/dL [facility] Interpretation and review of laboratory results Abnormal [facility] Lymphocytes (Bld) [#/Vol] 2.3 10*3/uL 1.0 - 4.8 K/uL [facility] Lymphocytes/100 WBC (Bld) 25.8 % [facility] MCH (RBC) [Entitic mass] 25.1 pg Low 27. 0 - 31.3 pg [facility] MCHC (RBC) [Mass/Vol] 32.0 % Low 33.0 - 37.0 % [facility] MCV (RBC) [Entitic vol] 78.5 fL Low 79.4 - 94.8 fL [facility] Monocytes (Bld) [#/Vol] 0.8 10*3/uL 0.2 - 0.8 K/uL [facility] Monocytes/100 WBC (Bld) 9.4 % [facility] Neutrophils Absolute 5.6 K/uL 1.4 - 6 .5 K/uL [facility] Neutrophils/100 WBC (Bld) 62.6 % [facility] Platelet distribution width (Bld) [Ratio] 16.4 % High 11.5 - 14.5 % [facility] Platelets (Bld) [#/Vol] 281 10*3/uL 130 - 400 K/uL [facility] RBC (Bld) [#/Vol] 5.66 10*6/uL High [facility] WBC (Bld) [#/Vol] 8.9 10*3/uL 4.8 - 10.8 K/uL [facility] Comprehensive Metabolic Pane gretel 03-02-2023 Albumin [Mass/Vol] 4.2 g/dL Normal 3.5-4.6 [facility] Comment on above: Performed By: #### U MARIA ELENA #### [facility] [address] [place] [address] ALP [Catalytic activity/Vol] 89 U/L Normal 40-130 [facility] Comment on above: Performed By: #### U MARIA ELENA #### [facility] [address] [place] [address] ALT [Catalytic activity/Vol] 47 U/L Critically high 0-33 [facility] Comment on above: Performed By: #### U MARIA ELENA #### [facility] [address] [place] [address] Anion gap [Moles/Vol] 13 mmol/L Normal 9-15 [facility] Comment on above: Performed By: #### U MARIA ELENA #### [facility] [address] [place] [address] AST [Catalytic activity/Vol] 44 U/L Critically high 0-35 [facility] Comment on above: Performed By: #### U MARIA ELENA #### [facility] [address] [place] [address] Bilirubin [Mass/Vol] 0.5 mg/dL Normal 0.2-0.7 [facility] Comment on above: Performed By: #### U MARIA ELENA #### [facility] [address] [place] [address] Calcium [Mass/Vol] 9.2 mg/dL Normal 8.5-9.9 [facility] Comment on above: Performed By: #### U MARIA ELENA #### [facility] [address] [place] [address] Chloride [Moles/Vol] 100 mmol/L Normal 95-107 [facility] Comment on above: Performed By: #### U MARIA ELENA #### [facility] [address] [place] [address] CO2 [Moles/Vol] 26 mmol/L Normal 20-31 [facility] Comment on above: Performed By: #### U MARIA ELENA #### [facility] [address] [place] [address] Creatinine [Mass/Vol] 0.54 mg/dL Normal 0.50-0.90 [facility] Comment on above: Performed By: #### U MARIA ELENA #### [facility] [address] [place] [address] GFR >60.0 Normal >60 [facility] Comment on above: Result Comment: Pedi atric [...] Performed By: #### U MARIA ELENA #### [facility] [address] [place] [address] Globulin (S) [Mass/Vol] 3.9 g/dL Critically high 2.3-3.5 [facility] Comment on above: Performed By: #### U MARIA ELENA #### [facility] [address] [place] [address] Glucose [Mass/Vol] 124 mg/dL Critically high 70-99 [facility] Comment on above: Performed By: #### U MARIA ELENA #### [facility] [address] [place] [address] Potassium [Moles/Vol] 4.4 mmol/L Normal 3.4-4.9 [facility] Comment on above: Performed By: #### U MARIA ELENA #### [facility] [address] [place] [address] Protein [Mass/Vol] 8.1 g/dL Critically high 6.3-8.0 [facility] Comment on above: Performed By: #### U MARIA ELENA #### [facility] [address] [place] [address] Sodium [Moles/Vol] 139 mmol/L Normal 135-144 [facility] Comment on above: Performed By: #### U MARIA ELENA #### [facility] [address] [place] [address] Urea nitrogen [Mass/Vol] 14 mg/dL Normal 6-20 [facility] Comment on above: Performed By: #### U MARIA ELENA #### [facility] [address] [place] [address] Albumin [Mass/Vol] 4.2 g/dL 3.5 - 4.6 g/dL [facility] ALP (Bld) [Catalytic activity/Vol] 89 U/L 40 - 130 U/L [facility] ALT [Catalytic activity/Vol] 47 U/L High 0 - 33 U/L [facility] Anion gap [Moles/Vol] 13 mmol/L [facility] AST [Catalytic activity/Vol] 44 U/L High 0 - 35 U/L [facility] Bilirubin [Mass/Vol] 0.5 mg/dL 0.2 - 0 .7 mg/dL [facility] Calcium [Mass/Vol] 9.2 mg/dL 8.5 - 9.9 mg/dL [facility] Chloride [Moles/Vol] 100 mmol/L [facility] CO2 [Moles/Vol] 26 mmol/L [facility] Creatinine [Mass/Vol] 0.54 mg/dL 0.50 - 0.90 mg/dL [facility] GFR/1.73 sq M.predicted MDRD (S/P/Bld) [Vol rate/Area] 60 - PINF [facility] Comment on above: Pediatric calculator [...] 3.9 g/dL High 2.3 - 3.5 g/dL [facility] Glucose [Mass/Vol] 124 mg/dL High 70 - 99 mg/dL [facility] Interpretation and review of laboratory results Abnormal [facility] Potassium [Moles/Vol] 4.4 mmol/L [facility] Protein [Mass/Vol] 8.1 g/dL High 6.3 - 8.0 g/dL [facility] Sodium [Moles/Vol] 139 mmol/L [facility] Urea nitrogen (BldV) [Mass/Vol] 14 mg/dL 6 - 20 mg/dL [facility] Laboratory - Coagulationon 0 06-24-2022 INR Coag (Bld) [Relative time] 1.1 {INR} Normal [facility] Work Phone: Laboratory - Hematology and Cell countson 06-24-2022 Basophils/100 WBC (Bld) 0.6 % Normal [facility] Work Phone: Eosinophils/100 WBC (Bld) 1.6 % Normal [facility] Work Phone: Lymphocytes/100 WBC (Bld) 25.8 % [facility] Work Phone: Monocytes/100 WBC (Bld) 9.4 % [facility] Work Phone: Neutrophils/100 WBC (Bld) 62.6 % Normal [facility] Work Phone: [phone] MRSA, DNA, Nasalon 3 Specimen Description Swab Normal [facility] Comment on above: Performed By: #### I MRSA #### [facility] [address] [place] [address] Microscopic Urinalysison Bacteria, UA FEW Abnormal Negative /HPF [facility] Epithelial Cells, UA 0-2 [facility] Hyaline Casts, UA 0-1 [facility] RBC, UA 0-2 [facility] WBC, UA 3-5 [facility] No Panel Informationon 06-24 Interpretation [...] [facility] Work Phone: Yellow Normal [facility] Work Phone: 0-2 Normal 0-5 [facility] Work Phone: 3-5 Normal 0-5 [facility] Work Phone: 0-1 Normal 0-5 [facility] Work Phone: FEW Abnormal Negative [facility] Work Phone: [phone] K/uL Normal 130-400 [facility] Work Phone: 16.4 % above high threshold 11.5-14.5 [facility] Work Phone: [phone] 32.0 % below low threshold 33.0-37.0 [facility] Work Phone: [phone] 0.1 K/uL Normal 0.0-0.2 [facility] Work Phone: [phone] 0.8 K/uL Normal 0.2-0.8 [facility] Work Phone: [phone] 2.3 K/uL Normal 1.0-4.8 [facility] Work Phone: [phone] 5.6 K/uL Normal 1.4-6.5 [facility] Work Phone: [phone] 25.1 pg below low threshold 27.0-31.3 [facility] Work Phone: [phone] 78.5 fL below low threshold 79.4-94.8 [facility] Work Phone: [phone] 44.4 % Normal 37.0-47.0 [facility] Work Phone: 14.2 g/dL Normal 12.0-16.0 [facility] Work Phone: 5.66 {M/uL} above high threshold 4.20-5.40 [facility] Work Phone: [phone] 8.9 K/uL Normal 4.8-10.8 [facility] Work Phone: [phone] 14.8 {sec} Normal 12.3-14.9 [facility] Work Phone: 30.1 {sec} Normal 24.4-36.8 [facility] Work Phone: Comment on above: Effective 02/27/2020: Heparin Therapeutic Range: 64.0 ? 98.0 seconds. 4.2 g/dL Normal 3.5-4.6 [facility] Work Phone: [phone] 3.9 g/dL above high threshold 2.3-3.5 [facility] Work Phone: 44 U/L above high threshold 0-35 [facility] Work Phone: [phone] U/L above high threshold 0-33 [facility] Work Phone: 89 U/L Normal 40-130 [facility] Work Phone: [phone] 0.5 mg/dL Normal 0.2-0.7 [facility] Work Phone: [phone] 8.1 g/dL above high threshold 6.3-8.0 [facility] Work Phone: [phone] 9.2 mg/dL Normal 8.5-9.9 [facility] Work Phone: [phone] >60.0 Normal >60 [facility] Work Phone: [phone] Comment on above: Pediatric calculator linkhttps://www.kidney.org/professionals/kdoqi/gfr_calculator [...] [employer] Work Phone: 13 {mEq/L} Normal 9-15 [facility] Work Phone: 26 {mEq/L} Normal 20-31 [facility] [employer] Work Phone: 100 {mEq/L} Normal 95-107 [facility] [employer] Work Phone: 4.4 {mEq/L} Normal 3.4-4.9 [facility] [employer] Work Phone: 139 {mEq/L} Normal 135-144 [facility] [employer] Work Phone: Negative Normal NEG [facility] [employer] Work Phone: Comment on above: NEGATIVE: MRSA DNA n ot detected by nucleic acid amplification. Results should be used as an adjunct to nosocomial control efforts toidentify patients needing enhanced precautions.The test is not intended to identify patients with staphylococcalinfections. Results should not be used to guide or monitor treatmentfor MRSA infections.[facility] [employer] [facility] [place] [address] Swab Normal [facility] Work [facility]: Partial Thromboplastin Timeo n 06-24-2022 aPTT Coag (Bld) [Time] 30.1 s Normal 24.4-36.8 [facility] Comment on above: Result Comment: Effe ctive 02/27/2020: Heparin Therapeutic Range: 64.0 ? 98.0 seconds. Performed By: #### U MARIA ELENA #### [facility] [address] [place] [address] Prothrombin Timeon 3 INR Coag (PPP) [Relative time] 1.1 {INR} Normal [facility] Comment on above: Performed By: #### P T #### [facility] [address] [place] [address] PT Coag (PPP) [Time] 14.8 s Normal 12.3-14.9 [facility] Comment on above: Performed By: #### P T #### [facility] [address] [place] [address] Protime-INRon 06-24-2022 INR Coag (Bld) [Relative time] 1.1 {INR} [facility] PT Coag (PPP) [Time] 14.8 s [facility] Opeepl TYPE AND SCREENon 06-24-2022 ABO/Rh Negative [facility] Comment on above: @06/24/22 14:01 by Elaina FISCHER: BACK TYPE CONFIRMED IN TUBE. LMB Confirmation type ne eds to be drawn. [facility] Type and 3 cell Screen OB Ca ptureon 06-24-2022 Type and 3 cell Screen OB Capture PATIENT: PINKY Prince LOC: [place]LL# : [id number] : 1970 SEX: F ORDERED BY: GILMAR COX ORDERED : 06/24/2022 11:08 COLLECTED: 06/24/2022 11:45 ORDER : [id number] RECEIVED : 06/24/2022 11:45 Confirmation type needs to be drawn. --- TEST NAME RESULT UNITS RANGES ABN FL ST ABORH Capture A NEG F @06/24/22 14:01 by RUDY: BACK TYPE CONFIRMED IN TUBE. LMB Antibody 3 Cell Scrn Captu NEG F -- Normal [facility] Comment on above: Performed By: #### T SO3C #### [facility] [address] [place] [address] Urinalysis with Reflex to Cu ltureon 06-24-2022 Bilirubin Urine Negative Negative [facility] Blood, Urine Negative Negative [facility] Clarity, UA Clear Clear [facility] Color, UA Yellow Straw/Zavala ow [facility] Glucose, Ur Negative Negative mg/dL [facility] Ketones Ql (U) Negative Negative mg/dL [facility] Leukocyte esterase Test strip Ql (U) TRACE Abnormal Negative [facility] Nitrite, Urine Negative Negative [facility] pH, UA 7.0 5.0 - 9.0 [facility] Protein (U) [Mass/Vol] 30 mg/dL Abnormal Negative [facility] Specific [place], UA 1.010 1.005 - 1.030 [facility] Urine Reflex to Culture Not Indicated [facility] Urobilinogen, Urine 0.2 NINF [facility] Urinalysis, reflex to cultur gurinder 06-24-2022 Urine Reflexed to Culture Not Indicated Normal [facility] Comment on above: Performed By: #### U AR #### [facility] [address] [place] [address] Bilirubin Ql (U) Negative Normal Negative [facility] Comment on above: Performed By: #### U AR #### [facility] [address] [place] [address] Clarity (U) Clear Normal Clear [facility] Comment on above: Performed By: #### U AR #### [facility] [address] [place] [address] Color (U) Yellow Normal Straw/Zavala [facility] Comment on above: Performed By: #### U AR #### [facility] [address] [place] [address] Glucose Ql (U) Negative Normal Negative [facility] Comment on above: Performed By: #### U AR #### [facility] [address] [place] [address] Hemoglobin Ql (U) Negative Normal Negative [facility] Comment on above: Performed By: #### U AR #### [facility] [address] [place] [address] Ketones Ql (U) Negative Normal Negative [facility] Comment on above: Performed By: #### U AR #### [facility] [address] [place] [address] Leukocyte esterase Test strip Ql (U) TRACE Abnormal Negative [facility] Comment on above: Performed By: #### U AR #### [facility] [address] [place] [address] Nitrite Ql (U) Negative Normal Negative [facility] Comment on above: Performed By: #### U AR #### [facility] [address] [place] [address] pH (U) 7.0 [pH] Normal 5.0-9.0 [facility] Comment on above: Performed By: #### U AR #### [facility] [address] [place] [address] Protein Ql (U) 30 mg/dL Abnormal Negative [facility] Comment on above: Performed By: #### U AR #### [facility] [address] [place] [address] Specific gravity (U) [Rel density] 1.010 Normal 1.005-1.03 [facility] Comment on above: Performed By: #### U AR #### [facility] [address] [place] [address] Urobilinogen Qn (U) 0.2 {Reji'U}/dL Normal < 2.0 [facility] Comment on above: Performed By: #### U AR #### [facility] [address] [place] [address] Urine Microscopicon 06-25-19 23 Urine Bacteria FEW Abnormal Negative [facility] Comment on above: Performed By: #### U MARIA ELENA #### [facility] [address] [place] [address] Urine Epithelial Cells Auto 0-2 Normal 0-5 [facility] Comment on above: Performed By: #### U MARIA ELENA #### [facility] [address] [place] [address] Urine Hyaline Casts Auto 0-1 Normal 0-5 [facility] Comment on above: Performed By: #### U MARIA ELENA #### [facility] [address] [place] [address] Urine RBC Auto 0-2 Normal 0-5 [facility] Comment on above: Performed By: #### U MARIA ELENA #### [facility] [address] [place] [address] Urine WBC Auto 3-5 Normal 0-5 [facility] Comment on above: Performed By: #### U MARIA ELENA #### [facility] [address] [place] [address] BILATERAL KNEE COMPLT, 4 OR MORE VIEWSon 05-18-2022 BILATERAL KNEE COMPLT, 4 OR MORE VIEWS Patient Name: GEETA SHELTON STUDY: BILATERAL KNEE; COMPLT, 4 OR MORE VIEWS; ; 05/18/2022 9:07 am INDICATION: pain M25.561: Acute pain of both knees M25.562:. ACCESSION NUMBER(S): [id number] ORDERING CLINICIAN: ACOSTA SCHAFER FINDINGS: Weightbearing four [...] abnormalities Electronically signed by: ACOSTA SCHAFER MD [facility] Initial Visit (Orthopaedic S urgery)on 05-18-2022 Initial Visit (Orthopaedic Surgery) Diagnoses/Problems Assessed Acute pain of both knees (338.19,719.46) (M25.561,M25.562) Orders Acute pain of both knees Xray Knee Bilateral, Complete, 4 or More Views; Status:Resulted - Preliminary; Done: [id number] 09:07AM Radiologist to Determine Optimal Study : [...] Radiologyon 05-18-2022 XR Knee 4 Views Normal -[place] [facility] Work Phone: Albumin [Mass/volume] in Ser um or PlasmaOrdered By: Elizabeth Alvarado on 05-07-2022 Albumin [Mass/Vol] 3.9 g/dL 3.2-5.5 [facility] Alkaline phosphatase [Enzyma tic activity/volume] in Serum or PlasmaOrdered By: Elizabeth Alvarado on 05-07-2022 ALP [Catalytic activity/Vol] 83 U/L 32-92 [facility] Aspartate aminotransferase [ Enzymatic activity/volume] in Serum or PlasmaOrdered By: Elizabeth Alvarado on 05-07-2022 AST [Catalytic activity/Vol] 56 U/L 10-42 [facility] Basophils Auto (Bld) [#/Vol] Ordered By: Elizabeth Alvarado on 05-07-2022 Basophils (Bld) [#/Vol] 0.1 10*3/uL 0.0-0.2 [facility] Basophils/100 WBC Auto (Bld) Ordered By: Elizabeth Alvarado on 05-07-2022 Basophils/100 WBC (Bld) 0.7 % . F [facility] Bilirubin.total [Mass/volume ] in Serum or PlasmaOrdered By: Elizabeth Alvarado on 05-07-2022 Bilirubin [Mass/Vol] 0.6 mg/dL 0.3-1.2 [facility] Calcium [Mass/volume] in Ser um or PlasmaOrdered By: Elizabeth Alvarado on 05-07-2022 Calcium [Mass/Vol] 9.1 mg/dL 8.2-10.2 [facility] Carbon dioxide, total [Moles /volume] in Serum or PlasmaOrdered By: Elizabeth Alvarado on 05-07-2022 CO2 [Moles/Vol] 28.1 mmol/L 22.0-30.0 [facility] Chloride [Moles/volume] in S hugo or PlasmaOrdered By: Elizabeth Alvarado on 05-07-2022 Chloride [Moles/Vol] 100 mmol/L 95-114 [facility] Cholesterol [Mass/volume] in Serum or PlasmaOrdered By: Elizabeth Alvarado on 05-07-2022 Cholesterol [Mass/Vol] 181 mg/dL 140-[address] [facility] Comment on above: Chol less than 200 m g/dl low riskChol 201-239 mg/dl borderline riskChol 240 mg/dl and greater high risk Cholesterol in LDL Calc [Mas s/Vol]Ordered By: Elizabeth Alvarado on 05-07-2022 Cholesterol in LDL [Mass/Vol] 102 mg/dL 0-100 [facility] Comment on above: LDL ATP III CLASSIFI CATIONLDL less than 100 mg/dL OptimalLDL 100-129 mg/dL Near or above optimalLDL 130-159 mg/dL Borderline highLDL 160-189 mg/dL HighLDL greater than 189 mg/dL Very high Cholesterol in VLDL Calc [Ma ss/Vol]Ordered By: Elizabeth Alvarado on 05-07-2022 Cholesterol in VLDL [Mass/Vol] 20 mg/dL [facility] Creatinine and Glomerular fi ltration rate.predicted panel (S/P/Bld)Ordered By: Elizabeth Alvarado on 05-07-2022 Creatinine [Mass/Vol] 0.65 mg/dL 0.44-1.03 [facility] Eosinophils Auto (Bld) [#/Vo l]Ordered By: Elizabeth Alvarado on 05-07-2022 Eosinophils (Bld) [#/Vol] 0.1 10*3/uL 0.0-0.45 [facility] Eosinophils/100 WBC Auto (Bl d)Ordered By: Elizabeth Alvarado on 05-07-2022 Eosinophils/100 WBC (Bld) 1.8 % . [facility] Erythrocyte distribution wid th Auto (RBC) [Ratio]Ordered By: Elizabeth Alvarado on 05-07-2022 Erythrocyte distribution width (RBC) [Ratio] 17.8 % 11.9-15.3 [facility] Estimated glomerular filtrat ion rate (GFR) non- AmericanOrdered By: Elizabeth Alvarado on 05-07-2022 GFR/1.73 sq M.predicted among non-blacks MDRD (S/P/Bld) [Vol rate/Area] > 60 mL/Min [facility] Globulin Calc (S) [Mass/Vol] Ordered By: Elizabeth Alvarado on 05-07-2022 Globulin (S) [Mass/Vol] 3.7 g/dL [facility] Glucose [Mass/volume] in Ser um or PlasmaOrdered By: Elizabeth Alvarado on 05-07-2022 Glucose [Mass/Vol] 137 mg/dL 70-100 [facility] Comment on above: ADA recommended refe rence rangeRandom Glucose Reference Range is dependent on time and content of last meal. Glucose of more than 200 mg/dL in a nonstressed, ambulatory subject supports the diagnosis of Diabetes Mellitus. Hematocrit Auto (Bld) [Volum e fraction]Ordered By: Elizabeth Alvarado on 05-07-2022 Hematocrit (Bld) [Volume fraction] 45.4 % 34.0-46.4 [facility] Hemoglobin [Mass/volume] in BloodOrdered By: Elizabeth Alvarado on 05-07-2022 Hemoglobin (Bld) [Mass/Vol] 14.1 g/dL 11.8-15.4 [facility] Leukocytes [#/volume] correc silverio for nucleated erythrocytes in Blood by Automated counOrdered By: Elizabeth Alvarado on 05-07-2022 WBC corrected for nucl RBC Auto (Bld) [#/Vol] 7.9 10*3/uL 3.8-11.6 [facility] Lymphocytes Auto (Bld) [#/Vo l]Ordered By: Elizabeth Alvarado on 05-07-2022 Lymphocytes (Bld) [#/Vol] 2.4 10*3/uL 1.00-4.8 [facility] Lymphocytes/100 WBC Auto (Bl d)Ordered By: Elizabeth Alvarado on 05-07-2022 Lymphocytes/100 WBC (Bld) 30.9 % . [facility] MCH Auto (RBC) [Entitic mass ]Ordered By: Elizabeth Alvarado on 05-07-2022 MCH (RBC) [Entitic mass] 24.6 pg 24.7-34.3 [facility] MCHC Auto (RBC) [Mass/Vol]Or dered By: Elizabeth Alvarado on 05-07-2022 MCHC (RBC) [Mass/Vol] 31.0 g/dL 32.0-35.0 [facility] MCV Auto (RBC) [Entitic vol] Ordered By: Elizabeth Alvarado on 05-07-2022 MCV (RBC) [Entitic vol] 79.4 fL 80-100 [facility] Monocytes Auto (Bld) [#/Vol] Ordered By: Elizabeth Alvarado on 05-07-2022 Monocytes (Bld) [#/Vol] 0.7 10*3/uL 0.0-0.8 [facility] Monocytes/100 WBC Auto (Bld) Ordered By: Elizabeth Alvarado on 05-07-2022 Monocytes/100 WBC (Bld) 9.3 % . F [facility] Neutrophils Auto (Bld) [#/Vo l]Ordered By: Elizabeth Alvarado on 05-07-2022 Neutrophils (Bld) [#/Vol] 4.5 10*3/uL 1.8-7.7 [facility] Neutrophils/100 WBC Auto (Bl d)Ordered By: Elizabeth Alvarado on 05-07-2022 Neutrophils/100 WBC (Bld) 57.3 % . [facility] No Panel InformationOrdered By: Elizabeth Alvarado on 05-07-2022 Estimated GFR () > 60 mL/Min [facility] Comment on above: GFR estimated refere nce range: According to KDOQI guidelines, <60 ml/min/1.73m2 is sufficient to diagnose a patient with chronic kidney disease. Pharmacy Creatinine Clearance (Chem N/A [facility] Nucleated erythrocytes [Pres ence] in Blood by Automated countOrdered By: Elizabeth Alvarado on 05-07-2022 Nucleated RBC Auto Ql (Bld) 0.1 /100{WBC} 0-0.5 [facility] Platelet mean volume Auto (B ld) [Entitic vol]Ordered By: Elizabeth Alvarado on 05-07-2022 Platelet mean volume (Bld) [Entitic vol] 9.4 fL 6.3-10.7 [facility] Platelets Auto (Bld) [#/Vol] Ordered By: Elizabeth Alvarado on 05-07-2022 Platelets (Bld) [#/Vol] 242 10*3/uL 150-450 [facility] Potassium [Moles/volume] in Serum or PlasmaOrdered By: Elizabeth Alvarado on 05-07-2022 Potassium [Moles/Vol] 4.3 mmol/L 3.5-5.1 [facility] Protein [Mass/volume] in Ser um or PlasmaOrdered By: Elizabeth Alvarado on 05-07-2022 Protein [Mass/Vol] 7.6 g/dL 6.1-7.9 [facility] RBC Auto (Bld) [#/Vol]Ordere d By: Elizabeth Alvarado on 05-07-2022 RBC (Bld) [#/Vol] 5.72 10*6/uL 3.60-5.00 [facility] Serum or plasma alanine ulloa otransferase measurement without P-5'-P (enzymatic activiOrdered By: Elizabeth Alvarado on 05-07-2022 ALT No additional P-5'-P [Catalytic activity/Vol] 61 U/L 10-60 [facility] Serum or plasma albumin/glob ulin mass ratioOrdered By: Elizabeth Alvarado on 05-07-2022 Albumin/Globulin [Mass ratio] 1.1 {ratio} [facility] Serum or plasma anion gap de terminationOrdered By: Elizabeth Alvarado on 05-07-2022 Anion gap [Moles/Vol] 11.2 mmol/L 6.0-15.[address] [facility] Serum or plasma high density lipoprotein (HDL) cholesterol measurementOrdered By: Elizabeth Alvarado on 05-07-2022 Cholesterol in HDL [Mass/Vol] 58 mg/dL 35-85 [facility] Comment on above: HDL CHOL ATP-III CLA SSIFICATION Cardiovascular RiskHDL > or equal to 60 mg/dL LOWHDL < 40 mg/dL HIGH Serum or plasma total choles terol/high density lipoprotein (HDL) cholesterol mass ratOrdered By: Elizabeth Alvarado on 05-07-2022 Cholesterol.total/Choles terol in HDL [Mass ratio] 3.1 {ratio} <5.0 [facility] Sodium [Moles/volume] in Ser um or PlasmaOrdered By: Elizabeth Alvarado on 05-07-2022 Sodium [Moles/Vol] 135 mmol/L 136-146 [facility] TSH DL <= 0.005 mIU/L QnOrde red By: Elizabeth Alvarado on 05-07-2022 TSH Qn 4.21 m[IU]/L 0.45-5.33 [facility] Triglyceride [Mass/volume] i n Serum or PlasmaOrdered By: Elizabeth Alvarado on 05-07-2022 Triglyceride [Mass/Vol] 103 mg/dL 35-149 [facility] Comment on above: TRIG ATP III CLASSIF ICATIONTRIG less than 150 mg/dL NormalTRIG 150-199 mg/dL Borderline highTRIG 200-500 mg/dL High TRIG greater than 500 mg/dL Very highStandard traceable to the Center for Disease Conrtrol and Prevention (CDC) test method. Urea nitrogen [Mass/volume] in Serum or PlasmaOrdered By: Elizabeth Alvarado on 05-07-2022 Urea nitrogen [Mass/Vol] 14 mg/dL 9-23 [facility] WBC Auto (Bld) [#/Vol]Ordere d By: Elizabeth Alvarado on 05-07-2022 WBC (Bld) [#/Vol] 7.9 10*3/uL 3.8-11.6 [facility] Basophils Auto (Bld) [#/Vol] Ordered By: Tyler Villeda on 04-13-2022 Basophils (Bld) [#/Vol] 0.1 10*3/uL 0.0-0.2 [facility] Basophils/100 WBC Auto (Bld) Ordered By: Tyler Villeda on 04-13-2022 Basophils/100 WBC (Bld) 0.6 % . F [facility] C reactive protein [Mass/vol ume] in Serum or PlasmaOrdered By: Tyler Villeda on 04-13-2022 CRP [Mass/Vol] 2.1 mg/dL 0.0-1.0 [facility] Eosinophils Auto (Bld) [#/Vo l]Ordered By: Tyler Villeda on 04-13-2022 Eosinophils (Bld) [#/Vol] 0.2 10*3/uL 0.0-0.45 [facility] Eosinophils/100 WBC Auto (Bl d)Ordered By: Tyler Villeda on 04-13-2022 Eosinophils/100 WBC (Bld) 2.0 % . [facility] Erythrocyte distribution wid th Auto (RBC) [Ratio]Ordered By: Tyler Villeda on 04-13-2022 Erythrocyte distribution width (RBC) [Ratio] 17.6 % 11.9-15.3 [facility] Erythrocyte sedimentation ra te by Photometric methodOrdered By: Tyler Villeda on 04-13-2022 ESR Photometric method (d) [Velocity] 54 mm/hr 0-29 [facility] Hematocrit Auto (Bld) [Volum e fraction]Ordered By: Tyler Villeda on 04-13-2022 Hematocrit (Bld) [Volume fraction] 44.4 % 34.0-46.4 [facility] Hemoglobin [Mass/volume] in BloodOrdered By: Tyler Villeda on 04-13-2022 Hemoglobin (Bld) [Mass/Vol] 14.3 g/dL 11.8-15.4 [facility] Leukocytes [#/volume] correc silverio for nucleated erythrocytes in Blood by Automated counOrdered By: Tyler Villeda on 04-13-2022 WBC corrected for nucl RBC Auto (Bld) [#/Vol] 8.6 10*3/uL 3.8-11.6 [facility] Lymphocytes Auto (Bld) [#/Vo l]Ordered By: Tyler Villeda on 04-13-2022 Lymphocytes (Bld) [#/Vol] 2.9 10*3/uL 1.00-4.8 [facility] Lymphocytes/100 WBC Auto (Bl d)Ordered By: Tyler Villeda on 04-13-2022 Lymphocytes/100 WBC (Bld) 33.6 % . [facility] MCH Auto (RBC) [Entitic mass ]Ordered By: Tyler Villeda on 04-13-2022 MCH (RBC) [Entitic mass] 24.9 pg 24.7-34.3 [facility] MCHC Auto (RBC) [Mass/Vol]Or dered By: Tyler Villeda on 04-13-2022 MCHC (RBC) [Mass/Vol] 32.2 g/dL 32.0-35.0 [facility] MCV Auto (RBC) [Entitic vol] Ordered By: Tyler Villeda on 04-13-2022 MCV (RBC) [Entitic vol] 77.4 fL 80-100 [facility] Monocytes Auto (Bld) [#/Vol] Ordered By: Tyler Villeda on 04-13-2022 Monocytes (Bld) [#/Vol] 0.9 10*3/uL 0.0-0.8 [facility] Monocytes/100 WBC Auto (Bld) Ordered By: Tyler Villeda on 04-13-2022 Monocytes/100 WBC (Bld) 10.0 % . [facility] Neutrophils Auto (Bld) [#/Vo l]Ordered By: Tyler Villeda on 04-13-2022 Neutrophils (Bld) [#/Vol] 4.6 10*3/uL 1.8-7.7 [facility] Neutrophils/100 WBC Auto (Bl d)Ordered By: Tyler Villeda on 04-13-2022 Neutrophils/100 WBC (Bld) 53.8 % . [facility] Nucleated erythrocytes [Pres ence] in Blood by Automated countOrdered By: Tyler Villeda on 04-13-2022 Nucleated RBC Auto Ql (Bld) 0.1 /100{WBC} 0-0.5 [facility] Platelet mean volume Auto (B ld) [Entitic vol]Ordered By: Tyler Villeda on 04-13-2022 Platelet mean volume (Bld) [Entitic vol] 9.1 fL 6.3-10.7 [facility] Platelets Auto (Bld) [#/Vol] Ordered By: Tyler Villeda on 04-13-2022 Platelets (Bld) [#/Vol] 296 10*3/uL 150-450 [facility] RBC Auto (Bld) [#/Vol]Ordere d By: Tyler Villeda on 04-13-2022 RBC (Bld) [#/Vol] 5.73 10*6/uL 3.60-5.00 [facility] WBC Auto (Bld) [#/Vol]Ordere d By: Tyler Villeda on 04-13-2022 WBC (Bld) [#/Vol] 8.6 10*3/uL 3.8-11.6 [facility] Serum or plasma follitropin measurement (units/volume)Ordered By: Elizabeth Alvarado on 12-03-2021 Follitropin Qn 18.3 m[IU]/mL [facility] Comment on above: FEMALE NORMALS (JUDIE ENOPAUSE) MID-FOLLICULAR PHASE: 3.9-8.8 mIU/mL MID-CYCLE PEAK: 4.5-22.5 mIU/mL MID-LUTEAL PHASE: 1.8-5.1 mIU/mL FEMALE NORMALS (POSTMENOPAUSE): 16.7-113.6 mIU/mL MALE NORMALS: 1.3-19.3 mIU/mL TSH DL <= 0.005 mIU/L QnOrde red By: Elizabeth Alvarado on 12-03-2021 TSH Qn 4.23 m[IU]/L 0.45-5.33 [facility] Total estrogen measurementOr dered By: Elizabeth Alvarado on 12-03-2021 Estrogen [Mass/Vol] 83 pg/mL . [facility] Comment on above: Prepubertal < 40 Female Cycle: 1-10 Days 16 - 328 11-20 Days 34 - 501 21-30 Days 48 - 350 Post-Menopausal 40 - 244 Performed at: - [address] [id number] Search Director: Virgie Isaac MD, Phone: [phone] Coding Summary.on 01-26-2019 Coding Summary. CODING DATE: 019 FINAL [facility] STATUS: Home (Routine DC) PAYOR: Medicare APC DESCRIPTION 5118 Level 3 Musculoskeletal Procedures ADMIT DX: REASON FOR VISIT DX: M76.61 Achilles tendinitis, right leg FINAL DX: PRINCIPAL: M76.61 Achilles tendinitis, right leg SECONDARY: M24.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, right ankle I10 Essential (primary) hypertension J45.909 Unspecified asthma, uncomplicated K21.9 Gastro-esophageal reflux disease without esophagitis Z79.899 Other long term care phlebotomist (current) drug therapy PYMT PROC APC STAT DESCRIPTION DOCTOR NAME DATE 48057 511 J1 Tenotomy, percutaneous, Thuan Travis DPM 01/24/2019 Achilles tendon (separate procedure); general anesthesia RT Right side (used to identify procedures performed on the right side of the body) 02725 Anesthesia for Shahab Almanzar Jr., DO 01/24/2019 [...] am Normal [facility] Inpatient Patient Summaryon 01-24-2019 Inpatient Patient Summary [facility] Clinical Discharge Instructions PERSON INFORMATION Name: GEETA SHELTON [facility] Admitting Physician: Thuan Travis DPM Attending Physician: Thuan Travis DPM PCP: Nichole Caballero Discharge Diagnosis: Comment: PATIENT EDUCATION INFORMATION Instructions: Post Op Patient Instructions - FT (Custom); Foot Cryocuff Patient Instructions - FT (Custom); Thaddeus - Post Operative Instructions (Revised 12/20/13) (Custom) ([id number]) Medication Leaflets: Follow up: MEDICATION LIST Comment: Normal [facility] Lyteson 01-24-2019 Anion gap [Moles/Vol] 14 mmol/L Normal 6-16 [facility] Comment on above: Performed By: #### 2 [id number] #### [facility] [address] [place] [address] Chloride [Moles/Vol] 107 mmol/L Normal 101-111 [facility] Comment on above: Performed By: #### 2 [id number] #### [facility] [address] [place] [address] CO2 [Moles/Vol] 23 mmol/L Normal 21-31 [facility] Comment on above: Performed By: #### 2 [id number], [id number], [id number], [id number], [id number] #### [facility] Laboratory [address] [place] [address] Potassium [Moles/Vol] 4.9 mmol/L Normal 3.5-5.3 [facility] Comment on above: Performed By: #### 2 533140, 5125836, 0419144, 10973567, 1365158, 6772165 #### [facility] Laboratory [address] [place] [address] Sodium [Moles/Vol] 139 mmol/L Normal 135-145 [facility] Comment on above: Performed By: #### 2 118203, 0582771, 4046120, 07551474, 7886983, 7926219 #### [facility] Laboratory [address] [place] [address] Main OR Intraoperative Recor don 01-24-2019 Main OR Intraoperative Record IntraOp Document Type FT Summary Primary Physician: Thuan Travis DPM Finalized Date/Time: 01/24/19 11:33:24 Pt. Name: GEETA SHELTON/Sex: 1970 Female Med Rec #: [id number] Physician: Thuan Travis DPM Financial #: [id number] Pt. Type: A Room/Bed: [facility] Admit/Disch: 01/24/19 07:58:48 - Institution: [...] Cheryl Role Performed Anesthesiologist Surgeon - Primary CURRICULUM SUPERVISOR Quebracho Tanner Time In 01/24/19 08:48:00 01/24/19 09:00:00 01/24/19 [...] Jani AGUILAR, Kallie Yuen RN, Zuly Duarte PUBLIC WELFARE DIRECTOR, Prashant Panda Role Performed Retort Or Condenser Press Operator - Primary Retort Or Condenser Press Operator - Other Scrub - Primary Time [...] RN, Emily A, Schmitz RN, Gerald Veliz PUBLIC WELFARE DIRECTOR, Prashant M Time Out Complete 01/24/19 08:59:00 [...] AGUILAR, CNOR, Alpa AGUILAR, Zuly Luna, Gerald PUBLIC WELFARE DIRECTOR, R, Gerald PUBLIC WELFARE DIRECTOR, Prashant Panda Outcomes Met? Yes Yes Last [...] to transfer/transport General Comments: REPORT GIVEN TO EXPERIENCE DESIGN DIRECTORRN. Cy PRIDE RN Dressing/Packing FT Pre-Care Text: [...] safely administered during the perioperative period For [facility] please see scanned medication reconcilliation form for medications used at the field during the procedure. Temperature Control Entry 1 Temperature Control BLANKET MISTRAL AIR Quantity 1 Aid TORSO [[id number]][F] Fluid/[place] Unit Mistral warming system Setting HIGH/43 Body Site Upper anterior torso Last Modified By: Kallie Gunter RN 01/24/19 08:46:43 Case Comments Finalized By: Maye Silverio CST Document Signatures Signed By: Kallie Gunter RN 01/24/19 09:26 Maye Silverio CST 01/24/19 11:33 Normal [facility] Main OR PACU I Recordon Main OR PACU I Record PACU Phase I Docum ent Type FT Summary Primary Physician: Thuan Travis DPM Finalized Date/Time: 01/24/19 10:08:45 Pt. Name: GEETA SHELTON/Sex: 1970 Female Med Rec #: [id number] Physician: Thuan Travis DPM Financial #: [id number] Pt. Type: A Room/Bed: Admit/Disch: 01/24/19 07:58:48 [...] 10:08 Normal [facility] Main OR PACU II Recordon Main OR PACU II Record PACU Phase II Doc ument Type FT Summary Primary Physician: Thuan Travis DPM Finalized Date/Time: 01/24/19 13:09:21 Pt. Name: GEETA SHELTON/Sex: 1970 Female Med Rec #: [id number] Physician: Thuan Travis DPM Financial #: [id number] Pt. Type: A Room/Bed: [facility] Admit/Disch: 01/24/19 07:58:48 - Institution: [...] Signed By: Keeley Putnam LPN 01/24/19 13:09 [facility] Main OR Preoperative Recordo n 01-24-2019 Main OR Preoperative Record PreOp Document Type FT Summary Primary Physician: Thuan Travis DPM Number: [id number] Finalized Date/Time: 01/24/19 09:12:07 Pt. Name: GEETA SHELTON Austyn/Sex: 1970 Female Med Rec #: [id number] Physician: Thuan Travis DPM Financial #: [id number] Pt. Type: A Room/Bed: [place] [address] Admit/Disch: 01/24/19 07:58:48 - Institution: Case Times [...] 09:12 Normal [facility] Operative Reporton 10--201 9 Operative Report Date [...] visit. Thuan Travis D.P.M. aek Dictated: 01/24/2019 #[id number] Typed: 01/24/2019 #[id number] cc: Thuan Travis D.P.M. [facility] Comment on above: Result Comment: Elec tronically Signed By: Thuan Travis DPM\.br\Date and Time Signed: 01/24/19 10:24 EDT Patient Education - Texton 1 Patient Education - Text (Inserted Image . Unable to display) [place], [place] Thuan Travis DPM, FACFAS POST [...] feel free to call the doctor at: [phone] or [phone] Travis paged. ___ Patient signature Date ___ Dr. Anand Sauer DPM, FACFAS Date Revised: 06-02 [facility] Progress Note-Physicianon Progress Note-Physician Patient: GEETA [...] 1 ml. Complications: None. Anesthesia type: General. [facility] Comment on above: Result Comment: Elec tronically Signed By: Thuan Travis DPM\.br\Date and Time Signed: 01/24/19 09:27 EDT Coding Summary.on 01-12-2019 Coding Summary. CODING DATE: 019 FINAL [facility] STATUS: Home (Routine DC) PAYOR: Medicare [...] am Normal [facility] BUNon 01-11-2019 Urea nitrogen [Mass/Vol] 29 mg/dL High 5-21 [facility] Comment on above: Performed By: #### 2 145101, 2324650, 6201801, 70365914, 5063632, 0329000 #### [facility] Laboratory [address] [place] [address] CBC w/Indiceson 01-11-2019 Erythrocyte distribution width (RBC) [Ratio] 16.1 % High 10.9-14.2 [facility] Comment on above: Performed By: #### 1 4075230, 3182101, 9427634, 2090363, 2360286 #### [facility] [address] [place] [address] Hematocrit (Bld) [Volume fraction] 42.1 % Normal 34.0-46.0 [facility] Comment on above: Performed By: #### 1 9640192, 4077376, 6172565, 9227412, 4204607 #### [facility] Laboratory [address] [place] [address] Hemoglobin (Bld) [Mass/Vol] 13.8 g/dL Normal 12.0-16.0 [facility] Comment on above: Performed By: #### 1 1233225, 4211923, 6671913, 6667621, 2909973 #### [facility] Laboratory [address] [place] [address] MCH (RBC) [Entitic mass] 25.8 pg Low 27.0-34.0 [facility] Comment on above: Performed By: #### 1 7684844, 2123491, 6263940, 7098960, 1266383 #### [facility] Laboratory [address] [place] [address] MCHC (RBC) [Mass/Vol] 32.8 g/dL Low 33.3-35.7 [facility] Comment on above: Performed By: #### 1 7022730, 4871618, 7385422, 2959238, 5782534 #### [facility] Laboratory [address] [place] [address] MCV (RBC) [Entitic vol] 78.5 fL Low 80.0-100.0 [facility] Comment on above: Performed By: #### 1 2011089, 5444302, 2693196, 0113402, 8755752 #### [facility] [address] [place] [address] Platelet mean volume (Bld) [Entitic vol] 9.9 fL Normal 6.4-10.8 [facility] Comment on above: Performed By: #### 1 0926954, 7127721, 0434367, 0833230, 6319205 #### [facility] Laboratory [address] [place] [address] Platelets (Bld) [#/Vol] 283.0 E9/L Normal 150. 0-500. 0 [facility] Comment on above: Performed By: #### 1 5638022, 8182704, 8068926, 1306792, 4646940 #### [facility] Laboratory [address] [place] [address] RBC (Bld) [#/Vol] 5.4 E12/L Normal 4.3-5.9 [facility] Comment on above: Performed By: #### 1 4769770, 6110941, 3025419, 0279117, 4566229 #### [facility] Laboratory [address] [place] [address] WBC corrected for nucl RBC Auto (Bld) [#/Vol] 8.6 E9/L Normal 4.0-11.0 [facility] Comment on above: Performed By: #### 1 9670133, 3181304, 4488923, 5066884, 9566604 #### [facility] Laboratory [address] [place] [address] Creatinineon 01-11-2019 Creatinine [Mass/Vol] 1.0 mg/dL Normal 0.5-1.3 [facility] Comment on above: Performed By: #### 2 165912, 4174787, 1224998, 80506841, 2058488, 9701374 #### [facility] [address] [place] [address] Glucoseon 01-11-2019 Glucose [Mass/Vol] 95 mg/dL Normal 55-199 [facility] Comment on above: Performed By: #### 1 4515879, 9868132, 6261590, 3907162, 4867302 #### [facility] [address] [place] [address] eGFRon 01-11-2019 GFR/1.73 sq M predicted among blacks MDRD (S/P/Bld) [Vol rate/Area] mL/min/{1.73_m2} Normal >=59 [facility] Comment on above: Order Comment: Order added by Discern Expert. Result Comment: eGFR is race adjusted. AA=. Performed By: #### 2 955496, 8289855, 2667620, 93268104, 0967094, 0132423 #### [facility] [address] [place] [address] GFR/1.73 sq M predicted among non-blacks MDRD (S/P/Bld) [Vol rate/Area] 59 mL/min/1.73 m2 Normal >=59 [facility] Comment on above: Order Comment: Order added by Discern Expert. 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 Kidney failure is indicated at less than 15 mL/min/1.73m2. Performed By: #### 2 527715, 9143260, 9814928, 90430215, 8871508, 3095699 #### [facility] [address] [place] [address] Coding Summary.on 12-15-2018 Coding Summary. CODING DATE: 019 FINAL [facility] STATUS: Home (Routine DC) PAYOR: Medicare [...] pm Normal [facility] BUNon 12-14-2018 Urea nitrogen [Mass/Vol] 19 mg/dL Normal 5-21 [facility] Comment on above: Performed By: #### 2 080301, 0484188, 7858320, 14818433, 8204179, 7850181 #### [facility] [address] [place] [address] CBC w/Indiceson 12-14-2018 Erythrocyte distribution width (RBC) [Ratio] 17.1 % High 10.9-14.2 [facility] Comment on above: Performed By: #### 2 702516, 6725261, 3719040, 29273521, 6281412, 4753143 #### [facility] [address] [place] [address] Hematocrit (Bld) [Volume fraction] 41.5 % Normal 34.0-46.0 [facility] Comment on above: Performed By: #### 2 732468, 0408685, 4911416, 65879449, 6169945, 0263456 #### [facility] [address] [place] [address] Hemoglobin (Bld) [Mass/Vol] 13.2 g/dL Normal 12.0-16.0 [facility] Comment on above: Performed By: #### 2 052896, 9589567, 7477460, 74963284, 2381230, 9711856 #### [facility] [address] [place] [address] MCH (RBC) [Entitic mass] 25.0 pg Low 27.0-34.0 [facility] Comment on above: Performed By: #### 2 641655, 8600860, 4100871, 64839734, 2269990, 4034863 #### [facility] [address] [place] [address] MCHC (RBC) [Mass/Vol] 31.7 g/dL Low 33.3-35.7 [facility] Comment on above: Performed By: #### 2 879096, 9608696, 6375234, 16044327, 3299593, 1025644 #### [facility] [address] [place] [address] MCV (RBC) [Entitic vol] 78.7 fL Low 80.0-100.0 [facility] Comment on above: Performed By: #### 2 720253, 2814343, 1703861, 81915179, 8840296, 9638554 #### [facility] [address] [place] [address] Platelet mean volume (Bld) [Entitic vol] 9.4 fL Normal 6.4-10.8 [facility] Comment on above: Performed By: #### 2 809758, 4537254, 0015164, 32547557, 9004069, 5483644 #### [facility] [address] [place] [address] Platelets (Bld) [#/Vol] 268.0 E9/L Normal 150. 0-500. 0 [facility] Comment on above: Performed By: #### 2 949941, 8199391, 7053447, 55653942, 4583211, 8635037 #### [facility] Laboratory [address] [place] [address] RBC (Bld) [#/Vol] 5.3 E12/L Normal 4.3-5.9 [facility] Comment on above: Performed By: #### 2 832740, 2770169, 6520720, 84460904, 9658936, 5960472 #### [facility] Laboratory [address] [place] [address] WBC corrected for nucl RBC Auto (Bld) [#/Vol] 10.6 E9/L Normal 4.0-11.0 [facility] Comment on above: Performed By: #### 2 903163, 7097280, 6746378, 94983345, 8424228, 9124053 #### [facility] [address] [place] [address] Creatinineon 12-14-2018 Creatinine [Mass/Vol] 0.7 mg/dL Normal 0.5-1.3 [facility] Comment on above: Performed By: #### 2 211042, 3237187, 3056803, 46609583, 2859096, 6718804 #### [facility] [address] [place] [address] Glucoseon 12-14-2018 Glucose [Mass/Vol] 138 mg/dL Normal 55-199 [facility] Comment on above: Performed By: #### 2 859161, 2780645, 7962594, 94831116, 4240041, 9923879 #### [facility] Laboratory [address] [place] [address] Lyteson 12-14-2018 Anion gap [Moles/Vol] 17 mmol/L High 6-16 [facility] Comment on above: Performed By: #### 2 927162, 2681461, 4522052, 41107563, 8631577, 3813043 #### [facility] Laboratory [address] [place] [address] Chloride [Moles/Vol] 95 mmol/L Low 101-[address] [facility] Comment on above: Performed By: #### 2 580246, 2718002, 7110072, 54368993, 7323346, 6919359 #### [facility] Laboratory [address] [place] [address] CO2 [Moles/Vol] 26 mmol/L Normal 21-31 [facility] Comment on above: Performed By: #### 2 943396, 7410071, 9913644, 66110510, 6810636, 4617010 #### [facility] Laboratory [address] [place] [address] Potassium [Moles/Vol] 3.9 mmol/L Normal 3.5-5.3 [facility] Comment on above: Performed By: #### 2 322290, 2002186, 0230535, 23587422, 8456770, 4459176 #### [facility] Laboratory [address] [place] [address] Sodium [Moles/Vol] 134 mmol/L Low 135-145 [facility] Comment on above: Performed By: #### 2 165622, 9210607, 1371982, 24081257, 5992933, 9499531 #### [facility] Laboratory [address] [place] [address] XR Chest 2 Viewson 9 XR Chest [...] KRISTYN Thornton [facility] eGFRon 12-14-2018 GFR/1.73 sq M predicted among blacks MDRD (S/P/Bld) [Vol rate/Area] mL/min/{1.73_m2} Normal >=59 [facility] Comment on above: Order Comment: Order added by Discern Expert. Result Comment: eGFR is race adjusted. AA=. Performed By: #### 2 669908, 5252009, 4417660, 12653030, 5442783, 6745429 #### [facility] Laboratory [address] [place] [address] GFR/1.73 sq M predicted among non-blacks MDRD (S/P/Bld) [Vol rate/Area] mL/min/{1.73_m2} Normal >=59 [facility] Comment on above: Order Comment: Order added by Discern Expert. 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 Kidney failure is indicated at less than 15 mL/min/1.73m2. Performed By: #### 2 089668, 0420601, 4346288, 59704335, 2213876, 4033037 #### [facility] [address] [place] [address] Vital Signs Date Time Vital Sign Value Performing Clinician Facility 09-30-2023 09:36-0400 Body height 165.1 cm PHYSICIAN [facility] 09-30-2023 09:36-0400 Body mass index (BMI) [Ratio] 46.2 kg/m2 PHYSICIAN [facility] 09-30-2023 09:36-0400 Body temperature 97.6 [degF] PHYSICIAN NO [facility] 09-30-2023 09:36-0400 Body weight 126.09 kg PHYSICIAN NO [facility] 09-30-2023 09:36-0400 Diastolic blood pressure 85 mm[Hg] PHYSICIAN [facility] 09-30-2023 09:36-0400 Heart rate 87 /min PHYSICIAN NO [facility] 09-30-2023 09:36-0400 Respiratory rate 20 /min PHYSICIAN NO [facility] 09-30-2023 09:36-0400 SaO2% (BldA) [Mass fraction] 98 % PHYSICIAN [facility] 09-30-2023 09:36-0400 Systolic blood pressure 139 mm[Hg] PHYSICIAN [facility] 03-02-2023 10:45-0500 Body height 165.1 cm Tyler Jean Other [email or web address] Other 03-02-2023 10:45-0500 Body mass index (BMI) [Ratio] 44.76 kg/m2 Tyler Jean Other [email or web address] Other 03-02-2023 10:45-0500 Body temperature 96.7 [degF] Tyler Mcnamaratyler Other [employer] Other 03-02-2023 10:45-0500 Body weight 122.02 kg Tyler Jean Other [employer] Other 03-02-2023 10:45-0500 Diastolic blood pressure 82 mm[Hg] Tyler Ted Other [employer] Other 03-02-2023 10:45-0500 Respiratory rate 18 /min Tyler Mcnamaratyler Other [employer] Other 03-02-2023 10:45-0500 SaO2% (BldA) [Mass fraction] 96 % Tyler Mcnamaratyler Other [employer] Other 03-02-2023 10:45-0500 Systolic blood pressure 136 mm[Hg] Tyler Mcnamaratyler Other [employer] Other 09-21-2022 09:11-0400 Body weight 128.72 kg SALES AND BUSINESS DEVELOPMENT MANAGER Elizabethshaun Alvarado Work Phone: [facility] 09-21-2022 09:11-0400 Diastolic blood pressure 91 mm[Hg] SALES AND BUSINESS DEVELOPMENT MANAGER Elizabeth Myerholtz Work Phone: [facility] 09-21-2022 09:11-0400 Heart rate 88 /min SALES AND BUSINESS DEVELOPMENT MANAGER Elizabeth Myerholtz Work Phone: [facility] 09-21-2022 09:11-0400 Respiratory rate 20 /min SALES AND BUSINESS DEVELOPMENT MANAGER Elizabeth Myerholtz Work Phone: [facility] 09-21-2022 09:11-0400 SaO2% (BldA) [Mass fraction] 96 % SALES AND BUSINESS DEVELOPMENT MANAGER Elizabeth Myerholtz Work Phone: [facility] 09-21-2022 09:11-0400 Systolic blood pressure 145 mm[Hg] RHEA Alvarado Work Phone: [facility] 08-16-2022 13:57-0400 Body temperature 98 [degF] RHEA Alvarado Work Phone: [facility] 08-16-2022 13:42-0400 Body height 165.1 cm RHEA Alvarado Work Phone: [facility] 07-03-2022 08:14-0500 Body temperature 97.9 [degF] Acosta Schafer MD Work Phone: [facility] 07-03-2022 08:14-0500 Diastolic blood pressure 70 mm[Hg] Acosta Schafer MD Work Phone: [facility] 07-03-2022 08:14-0500 Heart rate 83 /min Acosta Schafer MD Work Phone: [employer] [facility] 07-03-2022 08:14-0500 Respiratory rate 18 /min Acosta Schafer MD Work Phone: [employer] 07-03-2022 08:14-0500 SaO2% (BldA) [Mass fraction] 98 % Acosta Schafer MD Work Phone: [employer] 07-03-2022 08:14-0500 Systolic blood pressure 129 mm[Hg] Acosta Schafer MD Work Phone: [employer] [facility] 07-02-2022 09:45-0500 Body mass index (BMI) [Ratio] 50.66 kg/m2 Acosta Schafer MD Work Phone: [employer] [facility] 07-02-2022 09:45-0500 Body weight 129.73 kg Acosta Schafer MD Work Phone: [facility] 06-24-2022 11:20-0500 Body height 160 cm Mloz Rn [employer] 06-24-2022 11:20-0500 Body mass index (BMI) [Ratio] 50.79 kg/m2 [facility] 06-24-2022 11:20-0500 Body temperature 97.9 [degF] [facility] 06-24-2022 11:20-0500 Body weight 130.05 kg [facility] 06-24-2022 11:20-0500 Diastolic blood pressure 87 mm[Hg] [facility] 06-24-2022 11:20-0500 Heart rate 73 /min Mloz Rn [facility] [employer] 06-24-2022 11:20-0500 Respiratory rate 16 /min [facility] 06-24-2022 11:20-0500 SaO2% (BldA) [Mass fraction] 98 % [facility] 06-24-2022 11:20-0500 Systolic blood pressure 142 mm[Hg] [facility] 05-18-2022 08:46-0500 Body height 165.1 cm Acosta Schafer MD Work Phone: [facility] Work Phone: 05-18-2022 08:46-0500 Body mass index (BMI) [Ratio] 45.93 kg/m2 Acosta Schafer MD Work Phone: [facility] Work Phone: 05-18-2022 08:46-0500 Body surface area Derived from formula 2.27 m2 Acosta Schafer MD Work Phone: [facility] Work Phone: 05-18-2022 08:46-0500 Body weight 125.19 kg Acosta Schafer MD Work Phone: [facility] Work Phone: Encounters Encounter Date Encounter Type Care Provider Facility Start: 09-30-2023 End: 09-30-2023 ambulatory PHYSICIAN [facility] Work Phone: Start: 09-30-2023 End: 09-30-2023 Patient encounter procedure PHYSICIAN NO [facility] Ambulatory Work Phone: Start: 09-30-2023 Registered Recurring PHYSICIAN NO [facility] Acute Work Phone: Start: 09-30-2023 ambulatory Elizabeth Alvarado F acility:[facility] Start: 09-07-2023 End: 09-07-2023 Patient encounter procedure PHYSICIAN NO [facility] [place] Work Phone: Start: 08-24-2023 End: 08-24-2023 ambulatory RHEA Alvarado Work Phone: [facility] Work Phone: Start: 08-24-2023 End: 08-24-2023 Patient encounter procedure SALES AND BUSINESS DEVELOPMENT MANAGERNohelia Alvarado Work Phone: [facility] Start: 08-24-2023 End: 08-24-2023 Departed Referred RHEA Alvarado Work Phone: [facility] Start: 05-10-2023 End: 05-10-2023 ambulatory SALES AND BUSINESS DEVELOPMENT MANAGERNohelia Alvarado Work Phone: [facility] Work Phone: Start: 05-10-2023 End: 05-10-2023 Patient encounter procedure SALES AND BUSINESS DEVELOPMENT MANAGER Elizabeth Alvarado Work Phone: [facility] Work Phone: Start: 03-02-2023 End: 03-02-2023 ambulatory Tyler Jean Other [email or web address] Other Start: 03-02-2023 Office outpatient vi sit 25 minutes Tyler Jean [facility] Vascular Surgery Start: 02-14-2023 End: 02-14-2023 ambulatory SALES AND BUSINESS DEVELOPMENT MANAGERNohelia Alvarado Work Phone: [facility] Work Phone: Start: 02-14-2023 End: 02-14-2023 Patient encounter procedure RHEA Alvarado Work Phone: [facility] [place] Work Phone: Start: 01-26-2023 [facility] visit new patient Sindy rubio [facility] Vascular Surgery Start: 01-26-2023 End: 01-26-2023 ambulatory SALES AND BUSINESS DEVELOPMENT MANAGERNohelia Alvarado Work Phone: [email or web address] Other Start: 01-26-2023 End: 01-26-2023 Patient encounter procedure RHEA Alvarado Work Phone: [facility] [place] Work Phone: Start: 12-29-2022 Patient encounter procedure Acosta Schafer MD Work Phone: [facility] Work Phone: Start: 12-29-2022 ambulatory Provider Pending Facili ty:[id number] Start: 11-25-2022 End: 11-25-2022 Patient encounter procedure RHEA Alvarado Work Phone: [facility] Work Phone: Start: 09-22-2022 Patient encounter procedure Acosta Schafer MD Work Phone: [facility] Work Phone: Start: 09-22-2022 ambulatory Provider Pending Facili ty:[id number] Start: 09-21-2022 End: 09-21-2022 ambulatory SALES AND BUSINESS DEVELOPMENT MANAGER Elizabeth Alvarado Work Phone: [facility] Work Phone: Start: 09-21-2022 End: 09-21-2022 Registered Recurring RHEA Johnson Christiano Work Phone: [facility] Work Phone: Start: 08-11-[address] Acosta Alva yaneli Ida Facility:[id number] Start: 08-04-2022 End: 08-04-2022 Discharged Recurring RHEA Fraserjackie Alvarado Work Phone: [facility]-Physical Therapy [address] Start: 07-23-2022 End: 07-23-2022 ambulatory RHEA Hurley Christiano Work Phone: [facility] Work Phone: Start: 07-23-2022 End: 07-23-2022 Patient encounter procedure RHEA Fraserjackie Alvarado Work Phone: [facility]-Lab [place] Work Phone: Start: 07-16-2022 Telephone encounter Acosta Crews MD Work Phone: [facility] Work Phone: Start: 07-14-2022 Patient encounter procedure Acosta Schafer MD Work Phone: [facility] Work Phone: Start: 07-14-[address] Acosta Schafer Facility:[id number] Start: 07-07-2022 AUDIT Acosta sow MD Work Phone: [facility] Work Phone: Start: 07-01-2022 ambulatory Provider Pending Facili ty:[id number] Start: 07-01-2022 End: 07-03-2022 Evaluation and management of inpatient ACOSTA SCHAFER [facility] Start: 07-01-2022 SURGNONUH, Provider: Acosta Schafer, Status: Pen, Time: 7:00 AM Natali Tyson PT, DPT Work Phone: [facility] [facility] Work Phone: Start: 07-01-2022 End: 07-03-2022 Evaluation and management of inpatient Acosta Schafer MD Work Phone: [facility] Comment on above: 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 Merrill martinez [facility] Facility:[id number] Start: 06-25-2022 Encounter for other preprocedural examination Mr. Merrill Hernandez [facility] Start: 06-24-2022 End: 06-29-2022 ambulatory [facility] Start: 06-24-2022 End: 06-28-2022 Subsequent hospital visit by physician Juan Manzano [facility] Start: 05-18-2022 Patient encounter procedure Acosta Schafer MD Work Phone: [facility] Work Phone: Start: 05-18-[address] Acosta Schafer Facility:[id number] Start: 05-07-2022 End: 05-07-2022 Patient encounter procedure RHEA Alvarado Work Phone: [facility] Work Phone: Start: 04-13-2022 End: 04-13-2022 ambulatory RHEA Alvarado Work Phone: [facility] Work Phone: Start: 04-13-2022 End: 04-13-2022 Patient encounter procedure RHEA Alvarado Work Phone: [facility] [place] Start: 12-17-2021 End: 12-17-2021 Patient encounter procedure RHEA Morinsaige Work Phone: [facility]-Nuc Med [place] Start: 12-07-2021 End: 12-07-2021 Patient encounter procedure RHEA Morinbijupaula Work Phone: [facility]-Ultrasound [place] Start: 12-03-2021 End: 12-03-2021 Departed Referred RHEA Johnson Christiano Work Phone: [facility] Procedures Date Procedure [...] MG FOR LOW K Arya Coronado SALES AND BUSINESS DEVELOPMENT MANAGER - SAFETY TECH Work Phone: Start: 07-03-2022 Blood count complete automated Arya Coronado SALES AND BUSINESS DEVELOPMENT MANAGER - SAFETY TECH Work Phone: Start: 07-02-2022 Dup-scan xtr veins unilateral/limited study Carlos A Hou DO Work Phone: Start: 07-02-2022 BASIC METABOLIC PANE L W/ REFLEX TO MG FOR LOW K Arya Coronado SALES AND BUSINESS DEVELOPMENT MANAGER - SAFETY TECH Work Phone: Start: 07-02-2022 Blood count complete automated Arya Coronado SALES AND BUSINESS DEVELOPMENT MANAGER - SAFETY TECH Work Phone: Start: 07-01-2022 Radiologic examinati on knee 1/2 views Arya Coronado SALES AND BUSINESS DEVELOPMENT MANAGER - SAFETY TECH Work Phone: Start: 07-01-2022 End: 07-01-2022 Revj [...] 12-17-2021 Radionuclide three-p hase bone study SALES AND BUSINESS DEVELOPMENT MANAGERNohelia Alvarado Work Phone: Start: 12-07-2021 US scan of thyroid RHEA Alvarado Work Phone: Start: 02-01-2019 Anesthesia consultation Start: 01-24-2019 Anesthesia consultation Plan of Treatment Date Care Activity Detail Author Start: 06-29-2023 FUV, Provider: Acosta Schafer, Status: Pen, Time: 2:15 PM FUV, Provider: Acosta Schafer, Status: Pen, Time: 2:15 PM -[facility] Work Phone: Start: 02-17-2023 Screening for malign ant neoplasm of colon [facility] Start: 12-29-2022 FUV, Provider: Acosta Schafer, Status: Pen, Time: 1:45 PM FUV, Provider: Acosta Schafer, Status: Pen, Time: 1:45 PM [facility] Work Phone: Start: 08-11-2022 FUV, Provider: Acosta Schafer, Status: Pen, Time: 9:45 AM FUV, Provider: Acosta Schafer, Status: Pen, Time: 9:45 AM [facility] [place] Work Phone: Start: 07-23-2022 [facility] Start: 07-14-2022 POV, Provider: Acosta Schafer, Status: Pen, Time: 9:00 AM POV, Provider: Acosta Schafer, Status: Pen, Time: 9:00 AM [facility] Work Phone: Start: 07-01-2022 End: 07-01-2022 Admission to same day surgery center 07/01/2022 Surgery IP Unit Acosta Schafer MD [address] [place] [address] RIGHT KNEE RIGHT TOTAL KNEE REVISION INSTRUMENTATION ANTONELLA FEMORAL & SCIATIC BLOCK [facility] [place] Comment on above: RIGHT KNEE RIGHT TOT AL KNEE REVISION INSTRUMENTATION ANTONELLA FEMORAL & SCIATIC BLOCK Start: 07-01-2022 End: 07-01-2022 Revj total knee arthrp w/wo algrft 1 component KNEE TOTAL ARTHROPLASTY REVISION Loosening of unicondylar knee replacement (HCC) 07/01/2022 10:50 AM [facility] Start: 07-01-2022 Subsequent hospital visit by physician 07/01/2022 Hospital Encounter IP Unit Acosta Schafer MD [address] [place] [address] [facility] [place] Start: 07-01-2022 SURGNON, Provider: Acosta Schafer, Status: Pen, Time: 7:00 AM SURGNON, Provider: Acosta Schafer, Status: Pen, Time: 7:00 AM [facility] [place] Work Phone: Start: 06-25-2022 PREADMIT, Provider: Merrill Alejandro, Status: Pen, Time: 1:45 PM PREADMIT, Provider: Merrill Alejandro, Status: Pen, Time: 1:45 PM [facility] Work Phone: Start: 06-25-2022 [id number], Provider : Natali Tyson, Status: Pen, Time: 1:00 PM [id number], Provider: Natali Tyson, Status: Pen, Time: 1:00 PM [facility] Work Phone: Start: 06-24-2022 Annual Wellness Visi t (AWV) Annual Wellness Visit (AWV) [facility] Start: 12-17-2021 Radionuclide three-p hase bone study NM bone 3 phase [facility] Start: 12-17-2021 End: 12-17-2021 Patient encounter procedure Departed [facility] [place] Start: 12-07-2021 US scan of thyroid US thyroid [facility] Start: 12-07-2021 End: 12-07-2021 [facility] [place] Start: 11-23-2021 Influenza vaccination Flu vaccine (# 1) [facility] Start: 05-18-2021 COVID-19 Vaccine (4 - Booster for Moderna series) COVID-19 Vaccine (4 - Booster for Moderna series) [facility] Start: 02-23-2018 Screening for malign ant neoplasm of breast Breast cancer screen [facility] Start: 02-23-2018 Shingles vaccine (1 of 2) Shingles v accine (1 of 2) [facility] Start: 02-23-2013 Screening for malign ant neoplasm of colon [facility] Start: 2008 Lipid panel Lipids [facility] Start: 02-23-2003 Diabetes screen Diabetes screen [facility] Start: 02-23-1998 Screening for malign ant neoplasm of cervix [facility] Start: 02-23-1989 Screening for malign ant neoplasm of cervix Pap smear [facility] Start: 02-23-1987 DTaP/Tdap/Td vaccine (1 - Tdap) DTaP/Tdap/Td vaccine (1 - Tdap) OMG Start: 02-23-1986 Hepatitis C screening Hepatitis C sc reen [facility] Start: 02-23-1983 HIV screening HIV screen [employer] Start: 1980 Depression Screen Depression Screen [facility] [employer] Start: 1968 COVID-19 Vaccine (#1) COVID-19 Vacci ne (#1) OMG End: 07-04-2022 Basic Metabolic Panel w/ Reflex to MG Basic Metabolic Panel w/ Reflex to MG Lab Routine Daily for 3 Days starting 07/02/2022 until 07/04/2022, 2 completed [employer] Phone: Comment on above: Daily for 3 Days sta rting 07/02/2022 until 07/04/2022, 2 completed End: 07-04-2022 CBC panel - Blood by Automated count CBC Lab Routine Daily for 3 Days starting 07/02/2022 until 07/04/2022, 2 completed [employer] Phone: Comment on above: Daily for 3 Days sta rting 07/02/2022 until 07/04/2022, 2 completed Comprehensive metabo lic 2000 panel - Serum or Plasma [facility] Comprehensive metabo lic 2000 panel - Serum or Plasma [facility] IgA [Mass/volume] in Serum or Plasma [facility] IgG [Mass/volume] in Serum or Plasma [facility] IgM [Mass/volume] in Serum or Plasma [facility] Oxygen therapy [[facility] Data Set] Initiate Oxygen Therapy Protocol Respiratory Care Routine Daily until discontinued starting 07/01/2022 [facility] [employer] Phone: Comment on above: Daily until disconti nued starting 07/01/2022 Spirometry panel Incentive tonja metry Respiratory Care Routine Every 2hr while awake until discontinued starting 07/01/2022 [facility] [employer] Phone: Comment on above: Every 2hr while awak e until discontinued starting 07/01/2022 [facility] Immunizations Immunization Date Immunization Notes Care Provider Fa cilirowdy 03-16-2016 influenza virus vaccine, unspecified formulation SALES AND BUSINESS DEVELOPMENT MANAGER Elizabeth Christiano Work Phone: [facility] 03-16-2016 influenza, injectabl e, quadrivalent, preservative free Sindy Davila Other [facility] Other Payers Date Payer Category Payer Medicaid [id number] 2022 Self-pay [id number] 2014 Private Health Insurance [id number] 1968 Unknown [id number]. 182 1968 Unknown [id number] [id number]. 182 1968 Unknown [id number] [id number]. 356 1968 Unknown [id number] [id number]. 1067 1968 Unknown [id number] 2.16.840.1.146217.3.579.2. 1067 1968 Unknown [id number] 2.16.840.1.431399.3.579.2. 1067 1968 Unknown [id number] 2.16.840.1.868752.3.579.2. 1067 1968 Unknown [id number] 2.16.840.1.863762.3.579.2. 1067 1968 Unknown [id number] 2.16.840.1.458401.3.579.2. 1067 1968 Unknown [id number] 2.16.840.1.070390.3.579.2. 1068 Medicare Medicare [id number] Medicare [id number] Medicare [employer] Dual Adv JRG [id number] Private Health Insurance [employer] [facility] PFFS 1 [id number] Unknown [facility] DUAL COMPLETE Unknown [id number]. 531 Social History Date Type Detail Facility Start: 06-03-2017 End: 09-21-2022 Tobacco smoking status NHIS Never smoked tobacco (finding) [facility] Start: 1970 Sex Assigned At Female F [facility] Start: 06-24-2022 Tobacco use and exposure Smokeless tobacco non-user [employer] Phone: Start: 06-24-2022 End: 07-02-2022 Alcohol intake Current drinker of alcohol (finding) [employer] Phone: Start: 06-24-2022 Alcohol Comment occasional [facility] [employer] Phone: Start: 1970 Sex Assigned At Not on file B ON [employer] Phone: Start: 06-14-2022 End: 06-24-2022 Exposure to SARS-CoV-2 (event) Not sure [employer] Phone: Sex Assigned At Sex Assigned At [facility] [place] [employer] Other Medical Equipment Procedure Code Equipment Code Equipment Origin al Text Equipment Identifier Dates Cement Bioprep S t - [id number] Start: 07-01-2022 Stem Tib L100mm [id number] Knee Tot Stbl Joey Roberta Triathlon - [id number] , [id number] FDA Start: 07-01-2022 Clinical Notes [...] of both lower extremities (ICD-10 - I87.303) [employer] Other 10-04-2023 Evaluation note* Encounter Date Diagnosis [...] Bilateral lower extremity edema (ICD-10 - R60.0) [email or web address] Other 04-24-2023 Consult note Author Zoey Ramirez [facility] August 16, 2022 3:19pm Note Date/Time August 16, 2022 2:2 0pm [facility] [place] [address] Hem/Onc Consult Note - OP Signed Patient: Geeta Shelton MR#: [id number] : 1970 Acct:[id number] Age/Sex: 52 / F Type: REG RCR Copies to: Elizabeth Alvarado APRN,SAFETY TECH Lorrie Baig DO~ HPI Date/Time of Service: Date of Service: 08/16/2022 Time of Service: 14:19 Referring Provider/PCP: Referring Provider: Lorrie Baig DO PCP: Elizabeth Alvarado APRN, ELECTRICAL MANUFACTURING ENGINEER-C - History of Present Illness Reason [...] and/or blood disorder. No history of thrombosis. [facility] - Medical History Medical History: Medical [...] Additional comments: Patient: Geeta Shelton MR#: [id number] : 1970 Acct:[id number] Age/Sex: 51 / F ADM Date: 2 Loc: DC Room: Type: [facility] Attending Dr: Tyler Villeda PA-C Copies to: CARLI Noyola Jeffrey S DO~ Ordering Provider: Tyler Villeda PA-C Date of Service: 12/17/21 DC/DC bone 3 phase: M25.562, M25.561 Nuclear medicine [...] the knee hardware bilaterally. This may bepostsurgical. DC/DC bone 3 phase IMPRESSION: Intense uptake of [...] for coordination of care (as documented) and [id number] counseling of patient and/or family. Dictated By: Zoey Ramirez APRN DD/ 1419 Signed By: <Electronically signed by RHEA Ramirez> 08/16/22 6209 [facility] Work Phone: 1(340) 755-236203-11-2023 History of Present illness Narrative* Sosa Poon [...] tape after removal as ordered. [facility] has [facility] set up. Knee immobilizer sent with [...] Therapy Med Surg Daily Treatment Note Facility/Department: [address] Room: W268/W268-01 NAME: Geeta Shelton : [...] BLOCK-DEMETRIA performed by Acosta Schafer MD at [facility] [place] Chart Reviewed: Yes Restrictions: Restrictions/Precautions: Fall [...] Recommendations: Continue to assess pending progress Goals Concrete Crusher Loader Operator Goals Concrete Crusher Loader Operator Goal 1: Bed mobility with indep Longterm Goal 2: Functional transfes with indep Longterm Goal 3: Amb 50ft with 2ww and indep Concrete Crusher Loader Operator Goal 4: 4 steps with handrail and SBA Longterm Goal 5: indep with HEP to improve [...] Therapy Med Surg Daily Treatment Note Facility/Department: [address] Room: [place] [address] NAME: Geeta Shelton : 1970 (52 y.o.) [...] Recommendations: Continue to assess pending progress Goals Longterm Goals Concrete Crusher Loader Operator Goal 1: Bed mobility with indep Longterm Goal 2: Functional transfes with indep Longterm Goal 3: Amb 50ft with 2ww and indep Concrete Crusher Loader Operator Goal 4: 4 steps with handrail and SBA Concrete Crusher Loader Operator Goal 5: indep with HEP to improve LE strength and ROM Patient Goals Patient Goals : to go home PLAN General Plan: 2 times a day 7 days a week Safety Devices Type of Devices: All fall risk precautions in place, Call light within reach, Left in bed, Bed alarm in place, Nurse notified [facility] (6 CLICK) BASIC MOBILITY AM-PAC Inpatient [...] accomplish the task * Arya Coronado, SALES AND BUSINESS DEVELOPMENT MANAGER - SAFETY TECH - 07/02/2022 9:49 AM EST Progress Note [...] pack per his order. * ChrissSuresh Aparicio, POULTRY SLAUGHTERER - 07/01/2022 5:51 PM EST Images from [...] puffs by inhalation with spacer [] Ipratropium [place] 0.02% unit dose by aerosol Ipratropium [place] MDI 2 puffs by inhalation with spacer [] Duoneb (Ipratropium + Albuterol) unit dose by aerosol Ipratropium MDI + Albuterol MDI 2 puffs byinhalation w/spacer MDI to Aerosol [] Albuterol Sulfate MDI Albuterol Sulfate 0.083% unit dose by aerosol [] Levalbuterol MDI 2 puffs by inhalation Levalbuterol 1.25 mg unit dose by aerosol [] Ipratropium [place] MDI by inhalation Ipratropium [place] 0.02% unit dose by aerosol [] Combivent (Ipratropium + Albuterol) MDI by inhalation Duoneb (Ipratropium + Albuterol) unit doseby aerosol Treatment Assessment [Frequency/Schedule]: Change frequency to: NO CHANGE per Protocol, P&T, [facility] Points 0 1 2 3 [...] (52 y.o.) CODE STATUS: Full Code Room: [place] [address] Date of Service: 07/01/2022 Patient Diagnosis(es): Loosening [...] Ambulation Assistance: Independent Transfer Assistance: Independent Active Aligning Checker: Yes Mode of Transportation: Car OBJECTIVE: Orientation Status: Orientation Overall Orientation Status: Within Functional Limits Orientation Level: Oriented X4;Oriented to place;Oriented to time;Oriented to situation;Oriented toperson Observation: Observation/Palpation Posture: Good Observation: right knee incision with bandage and knee immobilizer in place Cognition Status: Cognition Overall Cognitive Status: [facility] Cognition Comment: Follows commands consistently Perception [...] How much help for eating meals?: None [facility] Inpatient Daily Activity Raw Score: 19 AM-[facility] Inpatient ADL T-Scale Score : 40.22 [...] Physical Therapy Med Surg Initial Assessment Facility/Department: [address] ORTHO TELE Room: [facility] [address] NAME: Geeta Shelton : 1970 (52 y.o.) [...] Ambulation Assistance: Independent Transfer Assistance: Independent Active Aligning Checker: Yes Mode of Transportation: Car OBJECTIVE: Vision [...] Goals: Patient Goals : to go home Concrete Crusher Loader Operator Goals Longterm Goal 1: Bed mobility with indep Longterm Goal 2: Functional transfes with indep Longterm Goal 3: Amb 50ft with 2ww and indep Longterm Goal 4: 4 steps with handrail and SBA Longterm Goal 5: indep with HEP to improve LE strength and ROM [facility] (6 CLICK) BASIC MOBILITY AM-PAC Inpatient [...] accomplish the task [facility] [employer] Work Phone: 1(196) 295-127803-09-2023 History of Present illness Narrative* History of [...] will most likely do this at [facility] in [place]. * Physical exam * General: No acute [...] grammatical areas may persist related to the [employer] software * Merrill Alejandro PA-C * . [facility] Work Phone: [phone]) 136-413603-07-2023 Hospital Discharge instructions* Discharge Instructions* Arya Coronado [...] remove dressing and start using instructions above [place] will be removed on post-operative day 14 [...] Hospital Unit/Room#: W268/W268-01 Discharging Unit Phone Number: [phone] Emergency Contact: Extended Emergency Contact Information Primary Emergency Contact: kena travis Relation: Other Past Surgical History: Past Surgical History: Procedure Laterality Date JOINT REPLACEMENT Left knee PARTIAL KNEE ARTHROPLASTY Right REVISION TOTAL KNEE ARTHROPLASTY Right 07/01/2022 RIGHT KNEE RIGHT TOTAL KNEE REVISION INSTRUMENTATION ANTONELLA FEMORAL & SCIATIC BLOCK-DEMETRIA performed by Acosta Schafer MD at [facility] [place] Immunization History: There is no immunization [...] Assisted Dressing Assisted Toileting Independent Feeding Independent Bit And Shank Department Supervisor Independent Med Delivery whole Wound Care Documentation [...] applicable) Name: Address: Dialysis Schedule: Phone: Fax: Underground [employer] Section Foreman/Aircraft Cleaning Supervisor signature: {Esignature:[id number]} PHYSICIAN SECTION Prognosis: {Prognosis:2445625243} Condition at Discharge: { Patient Condition:560540406} Rehab Potential (if transferring to Rehab): {Prognosis:1810277262} Recommended Labs or Other Treatments After Discharge: Physician Certification: I certify the above information and transfer of Geeta Shelton is necessary for the continuing treatment of the diagnosis listed and that she requires {[facility]} for {GREATER/LESS:329410620} 30 days. Update Admission H&P: {CHP DME Changes in HandP:962030193} PHYSICIAN SIGNATURE: {Esignature:[id number]} * Attachments The following attachments cannot be sent through Care Everywhere. * Total Knee Replacement Surgery: General Info (Dutch) * Wound: VAC (Vacuum-Assisted Closure) (Dutch) documented in this encounterSPAULDING [facility]ATION HOSPITALeFinancial Communications Work Phone: 1(285) 399-251303-02-2023 History of Present illness Narrative* Sindy Pelaez RN - 06/24/2022 11:10 AM EST Yellow PAT and Dynahex instruction sheet reviewed with patient, who verbalized understanding. documented in this encounterSPAULDING REHABILITATION HOSPITALeFinancial Communications Work Phone: evaluation noteNo assessment information available [facility] Work Phone: Evaluation note* Diagnosis Status post revision of total knee replacement, right- Primary Status post revision of total replacement of right knee Acute postoperative pain Other acute postoperative pain documented in this encounter [facility]OS[facility]ITALNthDegree Technologies [employer] [facility] Work Phone: evaluation note* Diagnosis Onset Date Resolution Status MGUS (monoclonal gammopathy of unknown significance) acute Microcytosis acute Peripheral neuropathy acute [facility] Work Phone: Evaluation note* Diagnosis Onset Date Resolution Status MGUS (monoclonal gammopathy of unknown significance) acute Microcytosis acute Peripheral neuropathy acute MGUS (monoclonal gammopathy of unknown significance) acute [facility] Work Phone: History general Narrative - Reported* Type Description Date Medical History asthma Medical History snoring Medical History Allergic Rhinitis Medical History Essential Hypertension Surgical History Revise/Replace left knee joint Surgical History Varicose Veins 2009 Surgical History Right ankle surgery Hospitalization History See above [email or web address] Other History of Present illness Narrative* New [...] grammatical areas may persist related to the [employer] software * Acosta Schafer MD * Senior Attending Physician * [facility] [place] * . -[facility] Work Phone: History of Present illness [...] grammatical areas may persist related to the [employer] software * Acosta Schafer MD * Senior Attending Physician * [facility] * [facility] [place] * . -[facility] Work Phone: History of Present illness [...] will be re-assessed and goals updated. [facility] Work Phone: History of Present illness Narrative* [...] will be re-assessed and goals updated. [facility] Work Phone: History of Present illness Narrative* [...] Schafer MD * Senior Attending Physician * [facility] * . -[facility] Work Phone: History of Present illness [...] grammatical areas may persist related to the [employer] software * Merrill Alejandro PA-C * . [facility] Work Phone: Progress note Author Krzysztof Salazar [facility] September 21, 2022 9:52am Note Date/Time September 21, 2022 9:49a m [facility] [place] [address] Hem/Onc Follow Up Note - OP Signed Patient: Geeta Shelton MR#: [id number] : 1970 Acct:[id number] Age/Sex: 52 / F Type: REG RCR [...] of gait ataxia and cane usage in theidst. Patient is ambulatory with no use of cane today; gait is slow but normal/steady. The patient is alert and oriented x3 - Time with Patient Coordination of Care & Counseling Time: Greater than 50% of time spent with patient was for coordination of care (as documented) and wfke-cy-wgxb counseling of patient and/or family. [facility] - Medical History Medical History: Medical [...] by Krzysztof Salazar II, > 09/21/22 0952 [facility] Work Phone: Reason for visit Narrative* Initial Evaluation, Pre-Op . * [facility]fer [facility] Work Phone: Reason for visit Narrative* Initial Evaluation, Pre-Op . * Referred by: Dr. 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 Addis of attending provider for home health Dr. [...] content) DATE CREATED AUTHOR 02/01/2019 Rober Renteriaus [facility] DATE CREATED AUTHOR AUTHOR'S ORGANIZ ATION 07/04/2022 [facility] DATE CREATED AUTHOR AUTHOR'S ORGANIZ ATION 07/08/2022 [facility] DATE CREATED AUTHOR AUTHOR'S ORGANIZ ATION 12/30/2022 [facility] DATE CREATED AUTHOR AUTHOR'S ORGANIZ ATION 01/09/2023 [facility] DATE CREATED AUTHOR AUTHOR'S ORGANIZ ATION 06/12/2024 [facility] DATE CREATED AUTHOR AUTHOR'S ORGANIZ ATION 10/04/2024 [facility] Care Teams (unrecognized sec tion and content) Team Status: Active Member Role Status Dates Elizabeth Alvarado APRN ELECTRICAL MANUFACTURING ENGINEER-C Primary Care Provide r Active Team Status: Inactive Member Role Status Dates Elizabeth Alvarado APRN ELECTRICAL MANUFACTURING ENGINEER-René Primar y Care Provider, Attending Provider Active Team Status: Inactive Member Role Status Dates Elizabeth Alvarado APRN ELECTRICAL MANUFACTURING ENGINEER-C Primary Care Provide r Active Lorrie Baig DO Attending Provider Active Team Status: Inactive Member Role Status Dates Elizabeth Alvarado APRN ELECTRICAL MANUFACTURING ENGINEER-C Primary Care Provide r Active Tyler Villeda PA-C Attending Provider Active Team Status: Inactive Member Role Status Dates Elizabeth Alvarado APRN ELECTRICAL MANUFACTURING ENGINEER-C Attending Provider A ctive Services Family [facility] Primary Care Provider Active Dance Entertainer Relationship Specialty Start Date End Date Elizabeth Alvarado PCP - General 07/01/22 Team Status: Active Member Role Status Dates Elizabeth Alvarado APRN ELECTRICAL MANUFACTURING ENGINEER-C Primary Care Provide r Active Zoey Ramirez APRN Attending Provider Active Lorrie Baig DO Referring Provider Active Team Status: Inactive Member Role Status Dates Elizabeth Alvarado APRN ELECTRICAL MANUFACTURING ENGINEER-C Primary Care Provide r Active Acosta Schafer Attending Provider Active Team Status: Inactive Member Role Status Dates Elizabeth Alvarado APRN ELECTRICAL MANUFACTURING ENGINEER-C Primary Care Provide r Active Sindy Davila ELECTRICAL MANUFACTURING ENGINEER-C Attending Provider Active Team Status: Inactive Member Role Status Dates Elizabeth Alvarado APRN ELECTRICAL MANUFACTURING ENGINEER-C Attending Provider A ctive Start: August 24, 2023 End: August 24, 2023 Team Status: Active Member Role Status Dates PHYSICIAN NO FAMILY Primary Care Provider Active Team Status: Inactive Member Role Status Dates Elizabeth Alvarado APRN ELECTRICAL MANUFACTURING ENGINEER-C Attending Provider A ctive Start: September 07, 2023 End: September 07, 2023 PHYSICIAN NO FAMILY Primary Care Provider Active Start: September 07, 2023 End: September 07, 2023 Team Status: Active Member Role Status Dates Elizabeth Alvarado APRN ELECTRICAL MANUFACTURING ENGINEER-C Primary Care Provide r Active Start: September 30, 2023 Zoey Ramirez APRN Active Start: September 30, 2023 Lorrie Baig DO Referring Provider Active Sta rt: September 30, 2023 Krzysztof Salazar II, DO Attending Provider Active Start: September 30, 2023 Team Status: Inactive Member Role Status Dates Elizabeth Alvarado APRN ELECTRICAL MANUFACTURING ENGINEER-C Primary Care Provide r Active Start: [...] FEMORAL & SCIATIC BLOCK Acosta Schafer MD [address] [place] [address] [facility] [address] [place] [address] Referral ID Status Reason Start Date Expiration Date Visits Re quested Visits Authorized [id number] 1 1 Ordered Prescriptions (unrec ognized section [...] 200 mg, Oral, ONCE, 1 dose, On Reene 07/01/22 at 0845, Pre-op, Pre-op (day of [...] at 250 mL/hr, Administer over 60 Minutes, LABOR/EXCAVATOR TO O.R., On Renee 07/01/22 at 0845, [...] (NoRateChange - Provider: Yang Mccollum APRN - MARZIPAN MOLDER)1311 (Anesthesia Volume Adjustment - Provider: Yang Mccollum APRN - TOMMIE)1324 (Anesthesia Volume Adjustment - Provider: Yang Mccollum APRN - MARZIPAN MOLDER) lactated ringers IV soln infusion IntraVENous, at [...] Carpenter RN) 0235 (See Alternative - Provider: Fouiza Ramos RN)0602 (Given - Provider: Fouzia Ramos [...] BE BASED ON THE PRIMARY CLINICAL RECORDS. [facility]. provides no warranty or guarantee of the accuracy or completeness of information in this document.
--- OUTSIDE RECORDS SUMMARY | 2025-02-07 14:15 | XMS_ITS | Clinical Summary ---
Author Organization [facility] Address [address] [place] [address] Care Team Providers Care Family Lawyer Name Role Phone Unallocated, Noms Provider Primary [...] Vaccine (#1) 2024 03/16/2016, 2014 Insurance MEDICARE [facility] Care Teams Family Lawyer Relationship Specialty Start Date End Date Unallocated, Noms Provider, [address] [place], [place] [id number] PCP - General 10/14/22
--- OUTSIDE RECORDS SUMMARY | 2025-02-07 14:15 | XMS_ITS | Patient Health Record ---
Author Organization [facility] [place] Address [address] [place] [address] Care Team Providers Care Coffee Machine Technician Name Role Phone Nahid HAMM, Mimi Primary Care Provider UnavailHilda Call Unavailable [phone] Yonny France Unavailable [phone] Allergies Allergen (clinical drug ingredient) Drug/Non Drug Allergy documented on EMR Reaction Allergy Type Onset Date Status Penicillin Unknown Drug Allergy Active Results Component Value Reference Range Notes VC SEGMENTAL PRESSURES Reviewed date:06/04/2024 01:00:24 PM Interpretation: Performing Lab: Notes/Report: Source Facility: [place] [address] Vein Report Signed Patient: GEETA VANEC MR#: [id number] : 1970 Acct:[id number] Age/Sex: 54 / F ADM Date: 03/20/24 Loc: VC Attending Dr: Hilda Gentile D.P.M. Ordering Physician: Hilda Gentile D.P.M. Date of Service: 03/20/24 Procedure(s): VC SEGMENTAL PRESSURES Accession Number(s): [id number] cc: Hilda Gentile D.P.M.; Physician,Non-Staff [facility] [place] [address] Patient Name: GEETA VANCE MRN: [id number] date: 1970 Sex: F Assigned Patient Location: VC Current Patient Location: Accession/Order Number: [id number] Exam Date: 03/20/2024 14:44 Report Date: 03/26/2024 07:54 At the request of: HILDA GENTILE Procedure: VC SEGMENTAL PRESSURES EXAM: VC SEGMENTAL PRESSURES HISTORY: R09.89 COMPARISON: None. FINDINGS: Segmental pressures presented as follows (right, left) in mmHg. Brachial: 154, 164 Lower thigh: 219, 214 Calf: 178, 204 DPA: 105, 79 PARTS WASHER: 158, 118 1st Toe: 211, 200 PEG: [...] By: Paul Cagle M.D. Signed By: 03/26/24 075 DD/ 3 TD/TT: Human Resources Operations Manager: CT foot RT w con Reviewed date:06/03/2024 11:04:29 AM Interpretation: Performing Lab: Notes/Report: Source Facility: [place] [address] CT Scan Report Signed Patient: GEETA VANCE MR#: [id number] : 1970 Acct:[id number] Age/Sex: 54 / F ADM Date: 06/02/24 Loc: ICU 276-[address]: Tasha France M.D. Ordering Physician: Tasha France M.D. Date of Service: 06/02/24 Procedure(s): CT foot RT w con Accession Number(s): [id number] cc: FAMILY,HEALTH SER [facility] [place] [address] Patient Name: GEETA VANCE MRN: [id number] date: 1970 Sex: F Assigned Patient Location: ICU Current Patient Location: ICU Accession/Order Number: [id number] Exam Date: 06/02/2024 16:38 Report Date: 06/02/2024 19:46 At the request of: TASHA FRANCE Procedure: CT foot RT w con EXAM: [...] evidence of osteomyelitis. No fractures. There is dpqt-yv-ewmvrcjn degenerative ankle mortise narrowing and osteoarthritis. Subtalar [...] See comments above. Electronically authenticated by: LESA WEATHERS Date: 06/02/2024 19:46 Dictated By: Lesa Weathers D.O. Signed By: 06/02/241948 DD/ 45 TD/TT: Human Resources Operations Manager: Aerobic Culture (Not yet rev iewed by [...] O:STAAUR Organism: 1.2 Aerobic Culture Performed at: [facility] Organism: Staphylococcus aureus : Antibiotic Interpretation MARIA ELENA Status O:BETAGC Aerobic Culture Isolated Isolated O:STAAUR Organism: 1.2 Aerobic Culture [address] [place], [place] [id number] Organism: Staphylococcus aureus : Antibiotic Interpretation MARIA ELENA Status O:BETAGC Aerobic Culture Isolated Isolated O:STAAUR Organism: 1.2 Aerobic Culture Rn Maternal Child: Torey Duncan PhD, Phone: [phone] Organism: Staphylococcus aureus : Antibiotic Interpretation MARIA [...] LC - [facility] SEE REPORT - Auto Body Customizer Id information not found for OBX-specific bee producer legend CBC AUTO DIFF Reviewed date:06/03/2024 11:04:29 AM Interpretation: Performing Lab: Notes/Report: [facility] , White Blood Count 13.1 [...] Performing Lab: see note ML - [facility] LB CRP Reviewed date:06/03/2024 11:04:29 AM Interpretation: Performing Lab: Notes/Report: [facility] , C Reactive Protein 28.73 <=0.50 mg/dL Performing Lab: see note - [facility] LB PROF CHEM 8 (BAS METB) Reviewed date:06/03/2024 11:04:29 AM Interpretation: Performing Lab: Notes/Report: [facility] , Sodium 135 136-145 mmol/L Potassium 4.1 [...] Performing Lab: see note ML - [facility] LB CBC AUTO DIFF Reviewed date:06/05/2024 12:41:43 PM Interpretation: Performing Lab: Notes/Report: [facility] , White Blood Count 9.1 4.0-11.0 10 [...] Performing Lab: see note ML - [facility] LB CRP Reviewed date:06/05/2024 12:41:43 PM Interpretation: Performing Lab: Notes/Report: [facility] , C Reactive Protein 12.54 <=0.50 mg/dL Performing Lab: see note ML - [facility] LB PROF CHEM 8 (BAS METB) Reviewed date:06/05/2024 12:41:43 PM Interpretation: Performing Lab: Notes/Report: [facility] , Sodium 135 136-145 mmol/L Potassium 4.1 [...] Performing Lab: see note ML - [facility] LB CBC AUTO DIFF Reviewed date:06/06/2024 09:18:06 PM Interpretation: Performing Lab: Notes/Report: [facility] , White Blood Count 9.3 4.0-11.0 10 [...] Performing Lab: see note ML - [facility] LB CRP Reviewed date:06/06/2024 09:18:06 PM Interpretation: Performing Lab: Notes/Report: [facility] , C Reactive Protein 9.36 <=0.50 mg/dL Performing Lab: see note ML - [facility] LB PROF CHEM 8 (BAS METB) Reviewed date:06/06/2024 09:18:06 PM Interpretation: Performing Lab: Notes/Report: [facility] , Sodium 135 136-145 mmol/L Potassium 4.3 [...] Performing Lab: see note ML - [facility] LB PROF CHEM 8 (BAS METB) Reviewed date:06/04/2024 01:00:24 PM Interpretation: Performing Lab: Notes/Report: [facility] , Sodium 137 136-145 mmol/L Potassium 3.6 [...] Performing Lab: see note ML - [facility] LB CRP Reviewed date:06/04/2024 01:00:24 PM Interpretation: Performing Lab: Notes/Report: [facility] , C Reactive Protein 18.96 <=0.50 mg/dL Performing Lab: see note - [facility] LB CBC AUTO DIFF Reviewed date:06/04/2024 01:00:24 PM Interpretation: Performing Lab: Notes/Report: [facility] , White Blood Count 11.4 4.0-11.0 10 [...] Performing Lab: see note ML - [facility] LB Aerobic Culture (Not yet rev [...] Rifampin S F Aerobic Culture Performed at: [facility] Organism: 2.2 Clindamycin O:STAAUR Oxacillin S F [...] S F Rifampin S F Aerobic Culture [address], [place] [id number] Organism: 2.2 Clindamycin O:STAAUR Oxacillin S F [...] S F Rifampin S F Aerobic Culture Rn Maternal Child: Torey Duncan PhD, Phone: [phone] Organism: 2.2 Clindamycin O:STAAUR Oxacillin S F [...] LC - [facility] SEE REPORT - Auto Body Customizer Id information not found for OBX-specific bee producer legend Anaerobic Culture (Not yet r eviewed by provider) Interpretation: Performing Lab: Notes/Report: [facility] , Anaerobic Culture See Below For Report Isolated O:PREVSP Anaerobic Culture Anaerobic Culture Specimen has been received and testing has been initiated. Isolated O:PREVSP Anaerobic Culture Anaerobic Culture Organism: Prevotella species : Isolated O:PREVSP Anaerobic Culture Anaerobic Culture *ABNORMAL* Isolated O:PREVSP Anaerobic Culture [facility] have confirmed the Isolated O:PREVSP Anaerobic Culture Anaerobic Culture observations of ot rs who have demonstrated that Isolated O:PREVSP [...] Lab: see note LC - [facility] Reason For Referral Reason PEG/PVR Diagnosis 1 Charcot's joint, lef t ankle and foot (M14.672) Referral Organization [facility]) Referring Provider First Name Hilda Referring [...] Status Risk Notes Problem Peripheral vascular disease (109760590) Peripheral vascular disease, unspecified (I73.9) Active confirmed Problem Polyneuropathy due to type 2 diabetes mellitus (493274940) Type 2 diabetes mellitus with diabetic polyneuropathy (E11.42) Active confirmed Problem Foot ulcer due to type 2 diabetes mellitus (3685440506919) Type 2 diabetes mellitus with foot ulcer (E11.621) Active confirmed Problem Pressure ulcer o f other site, stage 1 (L89.891) Active confirmed Problem Chronic ulcer of foot (545673653) 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) Active confirmed Problem Arthropathy associated with a neurological disorder (47501716) Charcot's joint, left ankle and foot (M14.672) Active confirmed Problem Arthralgia of the ankle and/or foot (638250418) Pain in right ankle and joints of right foot (M25.571) Active confirmed Problem Arthralgia of the ankle and/or foot (252367776) Pain in left ankle and joints of left foot (M25.572) Active confirmed Problem Closed fracture of calcaneus (28530361) Displaced avulsion fracture of tuberosity of left calcaneus, initial encounter for closed fracture (S92.032A) Active confirmed Problem Essential hypertension (16242568) Benign essential HTN (I10) Active confirmed Problem Neuropathy (346795064) Neuropathy (G62.9) Active confirmed Problem Leukocytosis (510624773) Leukocytosis (D72.829) Active confirmed Problem Sepsis (10543385) Sepsis (A41.9) Active confirm ed Problem Culture positive for methicillin resistant Staphylococcus aureus (299553535) MRSA (methicillin resistant staph aureus) culture positive (Z22.322) Active confirmed Problem Non-pressure chronic ulcer of right heel and midfoot with muscle involvement without evidence of necrosis (L97.415) Active confirmed Problem Chronic ulcer of right heel with fat layer exposed (L97.412) Active confirmed Problem Chronic ulcer of right foot (disorder) (3258089110405708 0) Chronic ulcer of right foot with fat layer exposed (L97.512) Active confirmed Vital Signs Heart Rate 74 /min 03/28/2024 Temperature 97.1 degrees Fahrenheit 03/28/2024 Oximetry 96 % 03/28/2024 Height 65 in 06/11/2024 Weight 260 lbs 03/13/2024 BMI 43.26 kg/m2 03/13/2024 Encounters Encounter Location Date Provider Diagnosis [facility] [address] [place] [address] 06/11/2024 Yonny Hoy Sepsis A41.9 and MRS A (methicillin resistant staph aureus) culture positive Z22.322 [facility] [address] [place] [address] 02/15/2024 Hilda Gentile Displaced avulsion fracture of tuberosity of left calcaneus, initial encounter for closed fracture S92.032A [facility] [address] [place] [address] 03/13/2024 Hilda Gentile Charcot's joint, lef t ankle and foot M14.672 ; Peripheral vascular disease, unspecified I73.9 and Type 2 diabetes mellitus with diabetic polyneuropathy E11.42 [facility] ([facility]) [address] [place] [address] [place] [address] 03/28/2024 Hilda Gentile Charcot's joint, lef t [...] Insured Coverage Start Date Coverage End Date [facility] PRIMARY MEDICARE [address] [address] [place] [address] [id number] [place] Geeta Vance Self - patient is the insured 5 [employer] [place] [address] [place] [address] [id number] Geeta Vance Self - patient is the insured 4 [place]ID [place] 2ND INS [address] OFFICE OF [place], [place] [id number] Geeta Vance Self - patient is the insured Medical (General) History Medical History History ICD Code diabetes neuropathy asthma high blood pressure Surgical History Surgery Date(Month/Year) Right knee replacement Left knee replacement
== END 2025-02-07 14:13 | disposition home or self-care (01) ==
LOC: WC 14:12
PROVIDERS: Visit Provider Physician Assistant
DX: E11.621 Type 2 diabetes mellitus with foot ulcer (principal); L97.411 Non-pressure chronic ulcer of right heel and midfoot limited to breakdown of skin
CPT/HCPCS: G0463

== ENCOUNTER 2025-02-19 08:56 | Outpatient (OUT) | payer MEDICARE, MEDICAID, SELFPAY ==
--- OUTSIDE RECORDS SUMMARY | 2014-02-13 04:00 | XMS_ITS | Continuity of Care Document ---
Author Organization [facility] Address [address] [place] [address] Phone Care Team Providers Care Early Interventionist Name Role Phone Lazaro SUBHA July Unavailable [...] Diagnoses Date Provider Providers Copied on Encounter [facility], [address] [place] [address], [id number], [place] tel:[phone] Dental Clinic Dental examination Lazaro DMD July. [address] [place], [place], [id number], [place]. tel:[phone] [facility], [address] [place], [place], [id number], tel:[phone] Dental Clinic Dental examination Lazaro DMD Susan. [address] [place], [place], [id number], [place]. tel:[phone] [facility], [address] [place], [place], [id number], [place] tel:[phone] Dental Clinic Dental examination Sergey Higginbotham. [address] [place], [place], [id number], [place]. tel:[phone] Family History Family Member Type Diagnosis Age At Onset No Information Payers Payer name Insurance type Covered green party ID Lisbethrich fermin(s) D Medicaid Primary [facility] [id number] Social History Type Description Quantity Date Captured [...]
--- OUTSIDE RECORDS SUMMARY | 2025-02-19 09:00 | XMS_ITS | Clinical Summary ---
Author Organization [facility] Address [address] [place] [address] Care Team Providers Care Holder Pile Driving Name Role Phone Unallocated, Noms Provider Primary Care Provi janis Allergies Active AllergyReactionsCriticalityNoted NzylCkttbvvyRjrlmvcbd90/10/2024 Tofiukebbys23/10/2024 Active Problems ProblemNoted DateDiagnosed DateParesthesia of skin09/02/2023LS (restless legs syndrome)09/02/2023Other chronic pain3071Oljahm76/10/2024Carpal tunnel syndrome, right3843Sjpnjgkndjzycx73/10/2024 Family History Medical HistoryRelationNameCommentsDiabetesFatherHypertensionFatherAsthmaMother HyperlipidemiaMotherRelationNameStatusCommentsFatherMother Social History Tobacco UseTypesPacks/DayYears UsedDateSmoking Tobacco: Never Tobacco Cessation:Counseling Given: Not Answered Alcohol UseStandard Drinks/WeekCommentsYes2 (1 standard drink = 0.6 oz pure alcohol)AUDIT-CAnswerDate RecordedQ1: How often do you have a drink containing alcohol?2-3 times a week09/02/2023Q2: How many drinks containing alcohol do you have on a typical day when you are drinking?3 or Q3: How often do you have six or more drinks on one occasion?Mrwdlw9909/02/2023CommentsUnknown Sex and Gender InformationValueDate RecordedSex Assigned at BirthNot on file Legal PsyYmftnw37/15/2023 6:34 PM EDTGender IdentityNot on fileSexual OrientationNot on file Last Filed Vital Signs Vital SignReadingTime TakenCommentsBlood Gzoejxgb637/7706/ 12:00 PM EDT Pulse--Temperature--Respiratory Rate--Oxygen Saturation--Inhaled Oxygen Concentration--Luulsx091 kg (260 lb)01/04/2022 12:00 PM RICDxydot178.1 cm (5' 5 )01/04/2022 12:00 PM EDTBody Mass Index43.27001/04/2022 12:00 PM EDT Plan of Treatment Health MaintenanceDue DateLast DoneCommentsCT Lmzfvquvtutm1968Colonoscopy 1970FIT1970FOBT1970Medicare Annual Wellness (AWV)1970 Dkwnpbcatzdtg1968Pap Smear02/23/1989Cervical Cancer Jdlushjzt67/01/1998 HPV/Ngchck3902/23/19988238Uqsdmictf11/01/2008Colorectal Cancer Ykfjlphgh85/26/2023 FIT-DNAInfluenza Vaccine (#1), 03/05/2015 Insurance Care Teams Team MemberRelationshipSpecialtyStart DateEnd Date Unallocated, Noms Provider, [address] [place] [address] PCP - General10/14/22
== END 2025-02-19 08:57 | disposition home or self-care (01) ==
LOC: WC 08:56
PROVIDERS: Visit Provider Physician Assistant
DX: E11.621 Type 2 diabetes mellitus with foot ulcer (principal); L97.411 Non-pressure chronic ulcer of right heel and midfoot limited to breakdown of skin
CPT/HCPCS: G0463

== ENCOUNTER 2025-03-19 10:40 | Outpatient (OUT) | payer MEDICARE, MEDICAID, SELFPAY ==
--- OUTSIDE RECORDS SUMMARY | 2014-02-13 03:00 | XMS_ITS | Continuity of Care Document ---
Author Organization [facility] Address [address] [place] [address] Phone Care Team Providers Care Quarter Section Ironer Name Role Phone Lazaro SUBHA July Unavailable Unavailable Allergies, Adverse Reactions, Alerts Substance Reaction Status Criticality Penicillins Hives/Skin Rash Active No Informati on Medications Medication Instructions Dosage Effective Dates (start - stop) Status Comments Singulair 10 mg tablet - Active Bactrim 400 mg-80 mg tablet - Active albuterol sulfate 1.25 mg/3 mL Neb Solution - Active Advair HFA 115 mcg-21 mcg/actuation Aerosol Inhaler - Active Procedures Procedure Date Limited Oral Eval Prophylaxis Adult Oral Hygiene Instruction Intraoral-complete Series (bw) 14 Comp Oral Eval New/estab Patient 2013 Advance Directives Directive Yes / No Effective Date File Name Resuscitation Not Answered N/A N/A Life Support Not Answered N/A N/A Intubation Not Answered N/A N/A Antibiotics Not Answered N/A N/A IV Fluid Support Not Answered N/A N/A Tube Feed Not Answered N/A N/A Other Directive N/A N/A WARNING:The information contained in this section is historical and is provided for information only and does not constitute a legal document or any assurance that the information is still accurate. Please verify the information with the munoz of the legal document before using it for clinical purposes. Encounters Encounter Description Practice Location Reason(s) For Visit Diagnoses Date Provider Providers Copied on Encounter [facility], [address] [place] [address], [id number], [place] tel:[phone] Dental Clinic Dental examination Lazaro DMD July. [address] [place], [place], [id number], [place]. tel:[phone] [facility], [address] [place], [place], [id number], tel:[phone] Dental Clinic Dental examination Lazaro DMD Susan. [address] [place], [place], [id number], [place]. tel:[phone] [facility], [address] [place], [place], [id number], [place] tel:[phone] Dental Clinic Dental examination Sergey Higginbotham. [address] [place], [place], [id number], [place]. tel:[phone] Family History Family Member Type Diagnosis Age At Onset No Information Payers Payer name Insurance type Covered republican ID Lisbethrich fermin(s) D Medicaid Primary [facility] [id number] Social History Type Description Quantity Date Captured Comments Alcohol Use Details Unknown Caffeine Use Details Unknown Tobacco Use Status No Information Smoking Status No Information Sex Female Vital Signs Date / Time: Height Weight BMI Pulse Rate Blood Pressure Temperature Respiratory Rate Body Surface Area Head Circumference Head Circ. Percentile Wt./[place]. Percentile BMI percentile Pulse Ox Inhaled Ox 8:03 AM 63 /min 123/85 mm[Hg] Chief Complaint And Reason For Visit No Information Reason For Referral Reason For Referral No Information History Of Present Illness Encounter Date Complaint History Of Prese nt Illness No Information Functional Status Date Functional Assessmen t No Information Instructions Date Instruction Additional Infor mation No Information Assessments Type Assessment Date No Information Patient Care Teams Name Effective Dates (start - stop) Status Members No Information
--- OUTSIDE RECORDS SUMMARY | 2025-03-19 10:44 | XMS_ITS | Clinical Summary ---
Author Organization [facility] Address [address] [place] [address] Care Team Providers Care Fruit Peeler Name Role Phone Unallocated, Noms Provider Primary Care Provi janis Allergies Active AllergyReactionsCriticalityNoted VrrzRcqevzhlCmyfespsf70/10/2024 Cthigaffcry91/10/2024 Active Problems ProblemNoted DateDiagnosed DateParesthesia of skin09/02/2023LS (restless legs syndrome)09/02/2023Other chronic pain0890Hauuwj66/10/2024Carpal tunnel syndrome, right8782Tkqxyshpaelizq46/10/2024 Family History Medical HistoryRelationNameCommentsDiabetesFatherHypertensionFatherAsthmaMother HyperlipidemiaMotherRelationNameStatusCommentsFatherMother Social History [...] have six or more drinks on one occasion?Eucqpj7009/02/2023CommentsUnknown Sex and Gender InformationValueDate RecordedSex Assigned at BirthNot on file Legal OejVptqnu54/15/2023 6:34 PM EDTGender IdentityNot on fileSexual OrientationNot on file Last Filed Vital Signs Vital SignReadingTime TakenCommentsBlood Jluurfjv527/7706/ 12:00 PM EDT Pulse--Temperature--Respiratory Rate--Oxygen Saturation--Inhaled Oxygen Concentration--Xpglme800 kg (260 lb)01/04/2022 12:00 PM SBFUokwws958.1 cm (5' 5 )01/04/2022 12:00 PM EDTBody Mass Index43.27001/04/2022 12:00 PM EDT Plan of Treatment Health MaintenanceDue DateLast DoneCommentsCT Qecvoyqlytpc1968Colonoscopy 1970FIT1968FOBT1968Medicare Annual Wellness (AWV)1970 Uitumlcgjochm1968Pneumococcal Vaccine: Pediatrics (0 to 5 Years) and At- Risk Patients (6 to 64 Years) (1 of 2 - PCV)02/23/1987Pap Smear02/23/1989 Cervical Cancer Nydcbiaqy44/01/1998HPV/Ggvisk8602/23/19985306Tvhsozrdl17/01/2008 Colorectal Cancer Zrilfnagr10/26/2023FIT-DNACOVID-19 Vaccine ( season)/, 08/09/2020, 07/12/2020Influenza Vaccine (#1)/, 03/05/2015 Insurance Care Teams Team MemberRelationshipSpecialtyStart DateEnd Date Unallocated, Noms Provider, [address] [place] [address] PCP - General10/14/22
--- OUTSIDE RECORDS SUMMARY | 2025-03-19 10:57 | XMS_ITS | CCD ---
Author Organization [facility] Care Team Providers Care Marketing And Public Relations Manager Name Role Phone RHEA Alvarado Attending Provider [facility], Services Primary Care Provider [phone] RHEA Alvarado Primary Care Provide r CARLI [...] Care Provide r Acosta Schafer Attending Provider [phone] RHEA Ramirez Attending Provider DO Lorrie Baig Referring Provider [phone] [place], Dr[address] Acosta Tyson Attending Un [...] MARII Davila Attending Provider Tyler Jean Unavailable [phone] RHEA Alvarado Primary Care Provide r MARII Davila Attending Provider RHEA Alvarado Attending Provider RHEA Alvarado Attending Provider NO FAMILY, PHYSICIAN Primary Care Provider Unava ilable RHEA Alvarado Primary Care Provide r DO Lorrie Baig Referring Provider [phone] DO Krzysztof Salazar II Attending Provider Elizabeth Alvarado Primary Care Unavailab Lorrie Villalobos Referring Unavailable Krzysztof Salazar II Attending Unavaila ble Krzysztof Salazar II Admitting Unavaila ble Allergies Allergy ClassificationReported Allergen(s)Allergy TypeDate of OnsetReaction(s) FacilityNSAIDs (1 source)IbuprofenDrug Pnwhcnf29-61-0356Cgnwtpi ReactionSelect Medical Specialty Hospital - YoungstownPenicillins (antibiotic) (2 sources)PenicillinDrug Jxucuig69-30-4081nlxgoTqdttdealGreene Memorial Hospital (20 sources)Penicillins; Translations: [Penicillins]Allergy to substance 87-95-0138UplvhiwfkhsVbjmkqvouSelect Medical Specialty Hospital - [place]stown (6 sources)Ibuprofen; Translations: [ibuprofen]Drug Mbzawih44-38-3640Hpqrwql ReactionSelect Medical Specialty Hospital - [place]stown (3 sources)Penicillin VDrug Uvslafj21-21-4088fnrkyWhcnptawaGreene Memorial Hospital (1 source)PenicillinDrug Girolay06-66-0217JazjwewgwSelect Medical Specialty Hospital - [place] Repository Medications Current Medications MedicationDrug Class(es)DatesSig (Normalized)Sig (Original)acetaminophen 325 mg oral tablet (2 sources)Start: 00-50-1150ibrhstizzyasq (TYLENOL) tablet 650 mgStart: 07-01-2022 End: 03-48-5695wtreinfonuusa (TYLENOL) tablet 1,000 [id number] 200 actuat albuterol 0.09 mg/actuat metered dose inhaler (11 sources)beta2-Adrenergic AgonistStart: 78-12-9577lxll 1 puff(s) by inhalation every four to six hoursAlbuterol Sulfate Active 2 PUFF INHALATION EVERY 4-6 HOURS August 13, 2022 12:00amStart: 32.5 mg, Nebulization, EVERY 6 HOURS PRN, Starting on Renee 07/01/22 at 1521, Until Discontinued, Wheezing Initiate RT Bronchodilator Protocol: Yes - Inpatient ProtocolAlbuterol Sulfate (2.5 MG/3ML) 0.083% 1 unit dose Inhalation four times a day DX J44.9 COPD Active albuterol (PROVENTIL) (2.5 MG/3ML) 0.083% nebulizer solution Inhale 2.5 mg into the lungs 2 times daily 0 Activealbuterol sulfate HFA (PROVENTIL;VENTOLIN;PROAIR) 108 (90 Base) MCG/ACT inhaler Inhale 2 puffs intothe lungs every 6-8 hours as needed 0 Activecelecoxib 200 mg oral capsule (10 sources)Nonsteroidal Anti-inflammatory DrugStart: 05-45-4459dyff 200 mg by mouth once dailyCelecoxib Active 200 MG PO Daily August 13, 2022 12:00am clonazePAM 1 mg oral tablet (2 sources)BenzodiazepineStart: 33-90-1364muxlattPGN 1 MG 1/2 tablet and may increase to 1 tablet nightly Orally Once a day at bed time for 30 days Oct, Activecyclobenzaprine hydrochloride 10 mg oral tablet (13 sources)Muscle RelaxantStart: 05-13-8811roka 10 mg by mouth at bedtime Cyclobenzaprine Active 10 MG PO Bedtime August 13, 2022 12:00amStart: 24-50-4328rzyiqesisyejaom (FLEXERIL) tablet 10 mgStart: 72-57-2004kmtm 1 tablet by mouth once daily as neededcyclobenzaprine (FLEXERIL) 10 MG tablet Take 10 mg by mouth nightly as needed 0 12/23/2021 Activedocusate sodium 50 mg / sennosides, senior living 8.6 mg oral tablet (2 sources)Start: 07-02-2022 End: 61-98-5451ogam 1 tablet by mouth twice dailysennosides-docusate sodium (SENOKOT-S) 8.6-50 MG tablet Take 1 tablet by mouth 2 times daily for 10days 20 tablet 0 07/02/2022 07/12/2022 ActiveStart: 39-96-2262dbnbdqjcfp-docusate sodium (SENOKOT-S) 8.6-50 MG tablet 1 gpeuvv45 actuat fluticasone propionate 0.5 mg/actuat / salmeterol 0.05 mg/actuat dry powder inhaler (2 sources)Corticosteroid, beta2-Adrenergic Agonisttake 1 puff(s) by inhalation twice dailyAdvair Diskus 500-50 MCG/ACT 1 puff Inhalation Twice a day Mtixpf40 actuat formoterol fumarate 0.005 mg/actuat / mometasone furoate 0.2 mg/actuat metered dose inhaler (1 source)Corticosteroid, beta2-Adrenergic AgonistStart: 18-04-2861muvl 2 puff(s) by inhalation at bedtimemometasone-formoterol (DULERA) 200-5 MCG/ACT inhaler Inhale 2 puffs into the lungs in the morning and at bedtime 0 02/08/2022 Activegabapentin 100 mg oral capsule (2 sources)Anti-epileptic AgentGabapentin 100 MG Oral for 30 Days Active hydroCHLOROthiazide 12.5 mg oral capsule (2 sources)Thiazide Diuretictake 1 capsule by mouth once daily in the morning hydroCHLOROthiazide 12.5 MG TAKE 1 CAPSULE BY MOUTH EVERY DAY IN THE MORNING Oral for 90 Days ActivehydrOXYzine hydrochloride 50 mg oral tablet (9 sources)AntihistamineStart: 32-30-3237ythz 50 mg by mouth once daily at bedtimeHydroxyzine Hcl Active 50 MG PO Daily at bedtime August 13, 2022 12:00am hydrOXYzine HCl 25 MG 1 tablet as needed Orally At bedtime Activeloratadine 10 mg oral tablet (2 sources)take 1 tablet by mouth once dailyLoratadine 10 MG 1 tablet Orally Once a day Activelosartan potassium 50 mg oral tablet (1 source)Angiotensin 2 Receptor BlockerStart: 15-76-9177gxbf 1 tablet by mouth once dailylosartan (COZAAR) 50 MG tablet Take 50 mg by mouth daily 0 01/25/2022 Ophmzq62 hr metFORMIN hydrochloride 500 mg extended release oral tablet (2 sources)Biguanidetake 1 tablet by mouth once dailymetFORMIN HCl ER 500 MG TAKE 1 TABLET BY MOUTH EVERY DAY WITH EVENING MEAL Oral for 90 Days Active Mometasone-Formoterol (Dulera) 200-5 mcg/actuation Hfa Aerosol Inhaler (6 sources)Start: 13-14-4966ailf 1 puff(s) by inhalation every twelve hours Mometasone-Formoterol (Dulera) 200-5 mcg/actuation Hfa Aerosol Inhaler Active 2 PUFF INHALATION Q12H August 12, 2022 11:00pmStart: 23-22-6074zowc 1 puff(s) by inhalation every twelve hoursMometasone-Formoterol (Dulera) 200-5 mcg/actuation Hfa Aerosol Inhaler Active 2 PUFF INHALATION Q12H August 13, 2022 12:00am montelukast 10 mg oral tablet (4 sources)Leukotriene Receptor AntagonistStart: 67-07-0079febr 1 tablet by mouth every twenty-four hoursSingulair 10 mg 1 tablet in the evening Orally Once a day Jun, Active1 ml morphine sulfate 2 mg/ml cartridge (1 source)Opioid AgonistStart: 14-38-4721lyxxueyc (PF) injection 2 mgomeprazole 20 mg delayed release oral tablet (2 sources)Proton Pump InhibitorStart: 68-49-6882dcdv 1 tablet by mouth once dailyOmeprazole 20 MG 1 tablet 30 minutes before morning meal Orally Once a day for 30 days Jan,ctiveondansetron (ZOFRAN-ODT) disintegrating tablet 4 mg (1 source)Start: 84-46-7177waxhodytkux (ZOFRAN-ODT) disintegrating tablet 4 mg polyethylene glycol 3350 91392 mg powder for oral solution (1 source)Osmotic LaxativeStart: 92-91-7868cjcealrdhihw glycol (GLYCOLAX) packet 17 gProAir HFA 108 (90 Base) MCG/ACT (2 sources)take 2 puff(s) by inhalation every four hours as neededProAir HFA 108 (90 Base) MCG/ACT 2 puffs as needed Inhalation every 4 hrs ActiverOPINIRole 2 mg oral tablet (18 sources)Nonergot Dopamine AgonistStart: 91-16-5530xuyx 2 mg by mouth twice dailyRopinirole Active 2 MG PO Twice daily August 13, 2022 12:00amStart: 40-03-6731yadc 0.25 mg by mouth twice daily0.25 mg, Oral, 2 times daily, First dose on Renee 07/01/22 at 2100, Until DiscontinuedStart: 06-03-2017 End: 29-65-2284Qrjgktfyxw Discontinued TABLET June 03, 2017 1:00am August 13, 2022 1:24pmtake 1 tablet by mouth at bedtimerOPINIRole (REQUIP) 0.25 MG tablet Take 0.25 mg by mouth in the morning and at bedtime 0 Activesertraline 100 mg oral tablet (2 sources)Serotonin Reuptake InhibitorSertraline HCl 100 MG TAKE 1 TABLET BY MOUTH EVERY DAY FOR 30 DAYS Oral for 30 Days Active5 ml sodium chloride 9 mg/ml injection (3 sources)Start: .9 % sodium chloride infusionStart: 07-01-2022 sodium chloride flush 0.9 % injection 5-40 mLsolifenacin succinate 10 mg oral tablet (9 sources)Cholinergic Muscarinic AntagonistStart: 32-64-2337anoh 10 mg by mouth once dailySolifenacin Active 10 MG PO Daily August 13, 2022 12:00am24 hr venlafaxine 75 mg extended release oral tablet (8 sources)Serotonin and Norepinephrine Reuptake InhibitorStart: 51-52-7391ujmh 75 mg by mouth once dailyVenlafaxine Active 75 MG PO Daily August 13, 2022 12:00amStart: 04-03-0138prjp 75 mg by mouth once daily75 mg, Oral, DAILY, First dose on [facility] 07/01/22 at 1545, Until Discontinued Do not crush or break.Start: 52-14-6258rpyd 1 capsule by mouth once dailyvenlafaxine (EFFEXOR XR) 75 MG extended release capsule Take 75 mg by mouth daily 0 12/03/2021 Active Completed/Discontinued Medications MedicationDrug Class(es)DatesSig (Normalized)Sig (Original)aspirin 81 mg delayed release oral tablet (1 source)Platelet Aggregation Inhibitor, Nonsteroidal Anti-inflammatory Drug Start: 07-01-2022 End: 94-88-8520brqvjtk EC tablet 81 mg60 actuat budesonide 0.16 mg/actuat / formoterol fumarate 0.0045 mg/actuat metered dose inhaler (1 source)Corticosteroid, beta2-Adrenergic AgonistStart: 55-46-2648xnnm 2 puff(s) by inhalation twice daily2 puff, Inhalation, 2 TIMES DAILY, First dose on [facility] 07/01/22 at 2000, Until Discontinued Substitutedfor mometasone-formoterol (DULERA).calcium chloride 0.0014 meq/ml / potassium chloride 0.004 meq/ml / sodium chloride 0.103 meq/ml / sodium lactate 0.028 meq/ml injectable solution (3 sources)Start: 07-01-2022 End: 10-70-2906livgvltq ringers IV soln infusionferrous sulfate 325 mg oral tablet (11 sources)Start: 09-21-2022 End: 31-90-3019jbbc 325 mg by mouth every other dayFerrous Sulfate Discontinued 325 MG PO Daily 60 October 06, 2022 8:15am September 30, 2023 9:39am may take every other dayfurosemide 20 mg oral tablet (10 sources)Loop DiureticStart: 06-03-2017 End: 45-20-6337Gtybddlanl Discontinued TABLET June 03, 2017 1:00am August 13, 2022 1:21pm1 ml ketorolac tromethamine 30 mg/ml cartridge (1 source)Nonsteroidal Anti-inflammatory Drug, Cyclooxygenase InhibitorStart: 07-01-2022 End: 74-69-1991ywucbzzcf (TORADOL) injection 30 mgondansetron 4 mg disintegrating oral tablet (10 sources)Serotonin-3 Receptor AntagonistStart: 06-03-2017 End: 13-51-3110wjln 1 tablet by mouth every four hoursOndansetron (Zofran Odt) 4 mg Tablet,Disintegrating Discontinued 4 MG PO Q4H June 03, 2017 1:00am August 13, 2022 1:21pm administer first dose 30 minutes before start of emetogenic chemotherapyoxyCODONE hydrochloride 5 mg oral tablet (8 sources)Opioid AgonistStart: 88-29-8438dwjx 1 tablet by mouth every six hours as needed for painoxyCODONE HCl - 5 MG Oral Tablet TAKE 1 TABLET EVERY 6 HOURS NEEDED FOR BREAKTHROUGH PAIN. Quantity: 28 Refills: 0 Ordered: 16-Jul-2022 Acosta Schafer MD Start : 14-Jul-2022 ActiveStart: 07-02-2022 End: 94-82-4598ymqq 1 tablet by mouth every four hours as needed for pain oxyCODONE (ROXICODONE) 5 MG immediate release tablet Indications: Acute postoperative pain Take 1 tablet by mouth every 4 hours as needed for Pain for up to 7 days. Max Daily Amount: 30 mg 28 tablet 0 07/02/2022 07/09/2022 Active Start: 71-86-1817trdNYBAHD (ROXICODONE) immediate release tablet 5 mgStart: 07-01-2022 End: 92-90-6775txuCQVGMO (OXYCONTIN) extended release tablet 10 mgrivaroxaban 10 mg oral tablet (8 sources)Factor Xa InhibitorStart: 04-98-4408gpqv 1 tablet by mouth once daily Xarelto 10 MG Oral Tablet Take 1 tablet daily Quantity: 14 Refills: 0 Ordered: 07-Jul-2022 Acosta Schafer MD Start : 07-Jul-2022 ActiveStart: 07-02-2022 rivaroxaban (XARELTO) tablet 10 mgStart: 07-02-2022 End: 46-54-4445ekwf 1 tablet by mouth once daily at breakfastXARELTO 20 MG TABS tablet Take 1 tablet by mouth daily (with breakfast) for 28 days Take half tablet by mouth 10 mg once daily for 28 days 28 tablet 0 07/02/2022 07/30/2022 Activetranexamic acid 650 mg oral tablet (3 sources)Antifibrinolytic AgentStart: 07-01-2022 End: 33-53-8717grqrdbynwp acid (LYSTEDA) tablet 1,950 mgvancomycin (VANCOCIN) 2,000 mg in sodium chloride 0.9 % 500 mL IVPB (1 source)Start: 07-01-2022 End: 90-45-1115zhuwcgivmk (VANCOCIN) 2,000 mg in sodium chloride 0.9 % 500 mL IVPBvancomycin 1000 mg IVPB in 250 mL NS addavial (1 source)Start: 07-01-2022 End: 76-14-1566fwciagghzz 1000 mg IVPB in 250 mL NS addavial Problems Active Problems Problem ClassificationProblemDateDocumented DateEpisodic/ChronicAsthma (6 sources)Uncomplicated moderate persistent asthma; Translations: [Moderate persistent asthma, uncomplicated]ChronicEsophageal disorders (2 sources)Gastroesophageal reflux disease; Translations: [Gastro-esophageal reflux disease without esophagitis]ChronicFluid and electrolyte disorders (10 sources)Dehydration; Translations: [Dehydration]51-81-3206RobesazzLsxqdrjdf of unspecified nature or uncertain behavior (10 sources)Monoclonal gammopathy of uncertain significance; Translations: [Monoclonal gammopathy]Onset: 217913-97-1942OnooodzQdyenkujvegayl (1 source)Unilateral primary osteoarthritis, right knee; Translations: [Unilateral primary osteoarthritis, right knee]Onset: 37-68-5114IhqzfxqDvigy aftercare (1 source)Aftercare following joint replacement surgery; Translations: [Aftercare following joint replacementsurgery]Onset: 48-42-1065OfteonxCqcxe connective tissue disease (3 sources)History of revision of right total knee arthroplasty; Translations: [Presence of right artificial knee joint]Onset: 66-63-4576SneznxgNhbyn connective tissue disease (2 sources)Presence of unspecified artificial knee joint; Translations: [Presence of unspecified artificial knee joint]Onset: 20-52-4901DbbokbcIzupi connective tissue disease (3 sources)Presence of right artificial knee joint; Translations: [Presence of right artificial knee joint]Onset: 29-63-7037UqnzofyLhkri connective tissue disease (6 sources)History of total knee arthroplasty; Translations: [Knee joint replacement]ChronicOther connective tissue disease (1 source)Presence of artificial knee joint, bilateral; Translations: [Presence of artificial knee joint, bilateral]Onset: 33-85-2940IprazbxHenmn diseases of veins and lymphatics (1 source)Venous hypertension of lower limb; Translations: [Chronic venous hypertension (idiopathic) without complications of bilateral lower extremity] ChronicOther diseases of veins and lymphatics (1 source)Chronic venous hypertension (idiopathic) without complications of bilateral lower extremityChronicOther diseases of veins and lymphatics (1 source)Peripheral venous insufficiency; Translations: [Venous insufficiency (chronic) (peripheral)]EpisodicOther diseases of veins and lymphatics (1 source)Venous insufficiency (chronic) (peripheral)EpisodicOther gastrointestinal disorders (2 sources)Dysphagia; Translations: [Dysphagia, unspecified]EpisodicOther hematologic conditions (6 sources)Microcytosis; Translations: [Other abnormality of red blood cells] 83-95-6232XomdlhudYbyel hematologic conditions (2 sources)Other abnormality of red blood cells; Translations: [Other abnormality of red blood cells]20-55-2944PjrxdbbpLhzlz hereditary and degenerative nervous system conditions (2 sources)Restless legs; Translations: [Restless legs syndrome]ChronicOther nervous system disorders (6 sources)Peripheral nerve disease ; Translations: [Polyneuropathy, unspecified]08-41-9422UdjjpvkBbavy nervous system disorders (2 sources)Polyneuropathy, unspecified; Translations: [Unspecified hereditary and idiopathic peripheral neuropathy]08-78-9160WtkoosjVrpgd nervous system disorders (1 source)Acute postoperative pain; Translations: [Other acute postprocedural pain]EpisodicOther upper respiratory disease (2 sources)Seasonal allergic rhinitis; Translations: [Other seasonal allergic rhinitis]ChronicPeri-; endo-; and myocarditis; cardiomyopathy (except that caused by tuberculosis or sexually transmitted disease) (2 sources)Valvular regurgitation; Translations: [Endocarditis, valve unspecified]ChronicPeripheral and visceral atherosclerosis (2 sources)Peripheral vascular disease; Translations: [Peripheral vascular disease, unspecified]ChronicResidual codes; unclassified (2 sources)Sleep apnea; Translations: [Sleep apnea, unspecified]ChronicResidual codes; unclassified (1 source)Localized edemaEpisodicVaricose veins of lower extremity (5 sources)Varicose veins of lower extremity; Translations: [Varicose veins of bilateral lower extremities with other complications]EpisodicViral infection (10 sources)Acute viral disease; Translations: [Viral infection, unspecified] 12-79-0833Vykbbyph Past or Other Problems Problem ClassificationProblemDateDocumented DateEpisodic/ChronicComplication of device; implant or graft (6 sources)Mechanical loosening of other internal prosthetic joint, initial encounter; Translations: [Loosening of unicondylar knee replacement]Onset: 89-59-9499YpmxghnlPgchr non-traumatic joint disorders (12 sources)Pain in right knee; Translations: [Acute pain of both knees]Onset: 71-25-3115PemcyipcKxmzq non-traumatic joint disorders (1 source)Pain in left knee; Translations: [Pain in left knee]Onset: 06-25-2022 Episodic Results Test NameValueInterpretationReference RangeFacilityOutside Recordson 06-11-2024 Outside [id number]#1.00[facility] BeachwoodRad - Other Radiology Reporton 56-47-5605Mzp - Other Radiology [id number]#1.00[facility] CenterRad - Other Radiology Report [id number]#1.00[facility] Alanine aminotransferase [Enzymatic activity/volume] in Serum or PlasmaOrdered By: Krzysztof Salazar on 43-26-2073DYG [Catalytic activity/Vol]33 U/L7-52 [facility] YoungstownAlbumin [Mass/volume] in Serum or PlasmaOrdered By: Krzysztof Salazar on 80-18-6314Esicvux [Mass/Vol]3.8 g/dL2.9-4.4FShelby Memorial HospitalAlbumin [Mass/volume] in Serum or Plasma by Bromocresol green (BCG) dye binding methoOrdered By: Krzysztof Salazar on 93-17-8238Fodgkfz BCG dye [Mass/Vol]4.2 g/dL3.5-5.7FShelby Memorial HospitalAlkaline phosphatase [Enzymatic activity/volume] in Serum or PlasmaOrdered By: Krzysztof Salazar on 24-33-1508IDZ [Catalytic activity/Vol]79 U/E29-449PjcbypcvtSelect Medical Specialty Hospital - YoungstownAspartate aminotransferase [Enzymatic activity/volume] in Serum or PlasmaOrdered By: Krzysztof Salazar on 97-93-8365BTC [Catalytic activity/Vol]30 U/V43-70SgnojutuzSelect Medical Specialty Hospital - YoungstownBasophils Auto (Bld) [#/Vol]Ordered By: Krzysztof Salazar on 39-65-0259Lbdftllmk (Bld) [#/Vol]0.0 10*3/uL0.0-0.2FShelby Memorial HospitalBasophils/100 WBC Auto (Bld) Ordered By: Krzysztof Salazar on 87-21-3663Fbglddjsn/100 WBC (Bld)0.5 %. [facility] YoungstownBilirubin.total [Mass/volume] in Serum or PlasmaOrdered By: Krzysztof Salazar on 73-53-3563Iqbuteopp [Mass/Vol]0.6 mg/dL 0.3-1.0[facility] YoungstownCalcium [Mass/volume] in Serum or Plasma Ordered By: Krzysztof Salazar on 02-68-7685Jaxzjks [Mass/Vol]9.7 mg/dL8.6-10.3 [facility] YoungstownCarbon dioxide, total [Moles/volume] in Serum or PlasmaOrdered By: Krzysztof Salazar on 43-19-7179IK7 [Moles/Vol]32.4 mmol/L 21.0-31.0[facility] YoungstownChloride [Moles/volume] in Serum or PlasmaOrdered By: Krzysztof Salazar on 68-69-3596Sowsodqj [Moles/Vol]97 mmol/L 98-107[facility] YoungstownCreatinine [Mass/volume] in Serum or PlasmaOrdered By: Krzysztof Salazar on 86-73-0421Wnmbcykyco [Mass/Vol]0.60 mg/dL 0.60-1.20[facility] YoungstownEosinophils Auto (Bld) [#/Vol]Ordered By: Krzysztof Salazar on 41-65-8111Drahfldcszr (Bld) [#/Vol]0.2 10*3/uL0.0-0.45 [facility] YoungstownEosinophils/100 WBC Auto (Bld)Ordered By: Krzysztof Salazar on 36-10-9261Qfdxmfqxafq/100 WBC (Bld)2.6 %.[facility] YoungstownErythrocyte distribution width Auto (RBC) [Ratio]Ordered By: Krzysztof Salazar on 63-24-8629Qdbyixhdfyx distribution width (RBC) [Ratio]16.7 %11.9-15.3FShelby Memorial HospitalFerritin [Mass/volume] in Serum or PlasmaOrdered By: Krzysztof Salazar on 01-04-9046Hvvdeerg [Mass/Vol]92.7 ng/mL 11.0-306.8[facility] YoungstownGlobulin Calc (S) [Mass/Vol]Ordered By: Krzysztof Salazar on 69-88-3047Yjmofogb (S) [Mass/Vol]3.5 g/dLSelect Medical Specialty Hospital - YoungstownGlucose [Mass/volume] in Serum or PlasmaOrdered By: Krzysztof Salazar on 18-53-1011Tjipmig [Mass/Vol]123 mg/jO93-985HxvdbcxniSelect Medical Specialty Hospital - YoungstownComment on above:ADA recommended reference rangeRandom Glucose Reference Range is dependent on time and content of last meal. Glucose of more than 200 mg/dL in a nonstressed, ambulatory subject supports the diagnosisof Diabetes Mellitus.Hematocrit Auto (Bld) [Volume fraction]Ordered By: Krzysztof Salazar on 44-77-8376Cjsbyzklkw (Bld) [Volume fraction]38.3 %34.0-46.4 [facility] YoungstownHemoglobin [Mass/volume] in BloodOrdered By: Krzysztof Salazar on 57-78-8553Assjirkzbw (Bld) [Mass/Vol]12.5 g/dL11.8-15.4 [facility] YoungstownIgA [Mass/volume] in Serum or PlasmaOrdered By: Krzysztof Salazar on 81-39-4895QqN [Mass/Vol]409 mg/eQ89-429IctnqdxosSelect Medical Specialty Hospital - YoungstownIgG [Mass/volume] in Serum or PlasmaOrdered By: Krzysztof Salazar on 06-42-1423RrB [Mass/Vol]1704 mg/bP154-0103GxzqrljxnSelect Medical Specialty Hospital - [place] IgM [Mass/volume] in Serum or PlasmaOrdered By: Krzysztof Salazar on 09-20-2023 IgM [Mass/Vol]122 mg/wF88-390SpilhlblgSelect Medical Specialty Hospital - YoungstownComment on above: Performed at: [address] [id number] Director: Jeyson Duncan PhD, Phone: [phone] light chains.kappa.free [Mass/volume] in SerumOrdered By: Krzysztof Salazar on 58-45-1183Zvmtucbazdejzo light chains.kappa.free (S) [Mass/Vol]30.9 mg/L3.3-19.4 [facility] YoungstownImmunoglobulin light chains.kappa.free/Immunoglobulin light chains.lambda.free [MassOrdered By: Krzysztof Salazar on 89-00-3443Rnbpdekziqpvco light chains.kappa.free/Immunoglobulin light chains.lambda.free (S) [Mass ratio]1.17 0.26-1.65[facility] YoungstownComment on above:Performed at: [address] [id number] Director: Jeyson Duncan PhD, Phone: [phone] light chains.lambda.free [Mass/volume] in Serum or PlasmaOrdered By: Krzysztof Salazar on 09-20-2023 Immunoglobulin light chains.lambda.free [Mass/Vol]26.4 mg/L5.7-26.3FShelby Memorial HospitalIron [Mass/volume] in Serum or PlasmaOrdered By: Krzysztof Salazar on 19-04-1575Ljcn [Mass/Vol]74 ug/jT51-221TfhvvwdleSelect Medical Specialty Hospital - YoungstownIron binding capacity [Mass/volume] in Serum or PlasmaOrdered By: Kzrysztof Salazar on 84-97-9459Uqiw binding capacity [Mass/Vol]344 ug/zZ812-192TtlpdkvgfSelect Medical Specialty Hospital - YoungstownIron saturation [Mass Fraction] in Serum or Plasma Ordered By: Krzysztof Salazar on 78-37-9016Rsmc saturation [Mass fraction]21.5 % 20-50[facility] YoungstownLeukocytes [#/volume] corrected for nucleated erythrocytes in Blood by Automated counOrdered By: Krzysztof Salazar on 26-99-0201JXO corrected for nucl RBC Auto (Bld) [#/Vol]8.5 10*3/uL3.8-11.6 [facility] - YoungstownLymphocytes Auto (Bld) [#/Vol]Ordered By: Krzysztof Salazar on 92-72-0920Anvigyxjkna (Bld) [#/Vol]2.1 10*3/uL1.00-4.8 [facility] YoungstownLymphocytes/100 WBC Auto (Bld)Ordered By: Krzysztof Salazar on 40-27-7366Hdqqepqxgvq/100 WBC (Bld)24.7 %.[facility] Auto (RBC) [Entitic mass]Ordered By: Krzysztof Salazar on 23-58-8967APH (RBC) [Entitic mass]25.8 pg24.7-34.3FShelby Memorial HospitalMCHC Auto (RBC) [Mass/Vol]Ordered By: Krzysztof Salazar on 89-32-8471HQPC (RBC) [Mass/Vol]32.7 g/dL32.0-35.0[facility]stownMCV Auto (RBC) [Entitic vol]Ordered By: Krzysztof Salazar on 85-62-3670FCB (RBC) [Entitic vol]78.7 eP02-283DirudglolSelect Medical Specialty Hospital - YoungstownMonocytes Auto (Bld) [#/Vol]Ordered By: Krzysztof Salazar on 36-27-3528Vluazxzxs (Bld) [#/Vol] 0.7 10*3/uL0.0-0.8[facility] YoungstownMonocytes/100 WBC Auto (Bld) Ordered By: Krzysztof Salazar on 15-45-7314Tclmqtgfi/100 WBC (Bld)7.9 %. [facility] YoungstownNeutrophils Auto (Bld) [#/Vol]Ordered By: Krzysztof Salazar on 68-03-3683Qzaimtqknkx (Bld) [#/Vol]5.5 10*3/uL1.8-7.7 [facility] YoungstownNeutrophils/100 WBC Auto (Bld)Ordered By: Krzysztof Salazar on 62-54-2676Fgaxuwqttbb/100 WBC (Bld)64.3 %.[facility] [place]stownNo Panel InformationOrdered By: Krzysztof Salazar on 80-95-2756Ureckckem GFR (CKD-EPI)> 60.0 mL/MinSelect Medical Specialty [facility] Pharmacy Creatinine Clearance (Tauh098.32[facility] [place] Protein Electrophoresis M-SpikeNot observed g/dLNot ObservedSelect Medical Specialty Hospital - YoungstownProtein Electrophoresis NoteSee comment.[facility] YoungstownComment on above:Protein electrophoresis scan will follow via computer,mail, or babysitter delivery.Serum ImmunofixationSee comment.[facility] YoungstownComment on above:No monoclonality detected.Nucleated erythrocytes [Presence] in Blood by Automated countOrdered By: Krzysztof Salazar on 37-74-5925Qnbqxeykb RBC Auto Ql (Bld)0.1 /100{WBC}0-0.5FShelby Memorial HospitalPlatelet mean volume Auto (Bld) [Entitic vol]Ordered By: Krzysztof Salazar on 91-75-7057Mwnwzxrh mean volume (Bld) [Entitic vol]8.8 fL6.3-10.7 [facility] YoungstownPlatelets Auto (Bld) [#/Vol]Ordered By: Krzysztof Salazar on 03-20-5033Rqricsgyd (Bld) [#/Vol]271 10*3/xR519-138YgzfhzkvkSelect Medical Specialty Hospital - YoungstownPotassium [Moles/volume] in Serum or PlasmaOrdered By: Krzysztof Salazar on 05-39-9502Yoxadlgac [Moles/Vol]4.4 mmol/L3.5-5.1FShelby Memorial HospitalProtein [Mass/volume] in Serum or PlasmaOrdered By: Krzysztof Salazar on 01-56-8742Jwmgatx [Mass/Vol]7.7 g/dL6.4-8.9[facility] [place]stownProtein [Mass/Vol]7.8 g/dL6.0-8.5FShelby Memorial HospitalRBC Auto (Bld) [#/Vol]Ordered By: Krzysztof Salazar on 09-20-2023 RBC (Bld) [#/Vol]4.86 10*6/uL3.60-5.00[facility] Hospitalerum globulin measurement (mass/volume)Ordered By: Krzysztof Salazar on 09-20-2023 Globulin (S) [Mass/Vol]4.0 g/dL2.2-3.9[facility] Hospitalerum or plasma albumin/globulin mass ratioOrdered By: Krzysztof Salazar on 09-20-2023 Albumin/Globulin [Mass ratio]1.2 {ratio}[facility] Albumin/Globulin [Mass ratio]1.0 {ratio}0.7-1.7FShelby Memorial Hospital Serum or plasma alpha 1 globulin measurement by electrophoresis (mass/volume) Ordered By: Krzysztof Salazar on 08-82-1324Bieya 1 globulin Elph [Mass/Vol]0.3 g/dL0.0-0.4FAdena Pike Medical Centererum or plasma alpha 2 globulin measurement by electrophoresis (mass/volume)Ordered By: Krzysztof Salazar on 91-72-4560Ljmrm 2 globulin Elph [Mass/Vol]0.8 g/dL0.4-1.0[facility] Hospitalerum or plasma anion gap determinationOrdered By: Krzysztof Salazar on 84-02-8471Wcpxf gap [Moles/Vol]11.0 mmol/L6.0-15.0[facility] Hospitalerum or plasma beta globulin measurement by electrophoresis (mass/volume)Ordered By: Krzysztof Salazar on 19-67-5796Busp globulin Elph [Mass/Vol]1.2 g/dL0.7-1.3FAdena Pike Medical Centererum or plasma gamma globulin measurement by electrophoresis (mass/volume)Ordered By: Krzysztof Salazar on 43-53-0513Caeum globulin Elph [Mass/Vol]1.8 g/dL0.4-1.8 [facility] Hospitalodium [Moles/volume] in Serum or PlasmaOrdered By: Krzysztof Salazar on 46-72-8097Ujczaf [Moles/Vol]136 mmol/I671-170WgpdvtpupSelect Medical Specialty Hospital - YoungstownTransferrin [Mass/volume] in Serum or PlasmaOrdered By: Krzysztof Salazar on 01-85-7158Vvajxuqzqkw [Mass/Vol]246 mg/aN404-339LukakjdlqSelect Medical Specialty Hospital - YoungstownUrea nitrogen [Mass/volume] in Serum or PlasmaOrdered By: Krzysztof Salazar on 84-02-2461Vgeu nitrogen [Mass/Vol]16 mg/dL7-25[facility] YoungstownWBC Auto (Bld) [#/Vol]Ordered By: Krzysztof Salazar on 75-33-8188VRC (Bld) [#/Vol]8.5 10*3/uL3.8-11.6FShelby Memorial Hospital Alanine aminotransferase [Enzymatic activity/volume] in Serum or PlasmaOrdered By: Elizabeth Alvarado on 53-24-3137GAT [Catalytic activity/Vol]28 U/L7-52 [facility] YoungstownAlbumin [Mass/volume] in Serum or Plasma by Bromocresol green (BCG) dye binding methoOrdered By: Elizabeth Alvarado on 59-61-2165Usoztce BCG dye [Mass/Vol]4.3 g/dL3.5-5.7FShelby Memorial HospitalAlkaline phosphatase [Enzymatic activity/volume] in Serum or PlasmaOrdered By: Elizabeth Alvarado on 72-03-2323DAA [Catalytic activity/Vol]86 U/L34-104 [facility] YoungstownAspartate aminotransferase [Enzymatic activity/volume] in Serum or PlasmaOrdered By: Elizabeth Alvarado on 08-24-2023 AST [Catalytic activity/Vol]28 U/N82-66FksjveuowSelect Medical Specialty Hospital - [place] Basophils Auto (Bld) [#/Vol]Ordered By: Elizabeth Alvarado on 08-24-2023 Basophils (Bld) [#/Vol]0.1 10*3/uL0.0-0.2FShelby Memorial Hospital Basophils/100 WBC Auto (Bld)Ordered By: Elizabeth Alvarado on 08-24-2023 Basophils/100 WBC (Bld)0.7 %.[facility] YoungstownBilirubin.total [Mass/volume] in Serum or PlasmaOrdered By: Elizabeth Alvarado on 08-24-2023 Bilirubin [Mass/Vol]0.4 mg/dL0.3-1.0[facility] YoungstownCalcium [Mass/volume] in Serum or PlasmaOrdered By: Elizabeth Alvarado on 08-24-2023 Calcium [Mass/Vol]9.4 mg/dL8.6-10.3FShelby Memorial HospitalCarbon dioxide, total [Moles/volume] in Serum or PlasmaOrdered By: Elizabeth Alvarado on 99-04-9502HF2 [Moles/Vol]29.2 mmol/L21.0-31.0[facility] YoungstownChloride [Moles/volume] in Serum or PlasmaOrdered By: Elizabeth Alvarado on 38-96-6211Fhwmiuxd [Moles/Vol]96 mmol/C39-818ZoszsxvrxSelect Medical Specialty Hospital - YoungstownCholesterol [Mass/volume] in Serum or PlasmaOrdered By: Elizabeth Alvarado on 16-79-9160Ylphynatktn [Mass/Vol]160 mg/kJ145-608VghlmqcreSelect Medical Specialty Hospital - YoungstownComment on above:Chol less than 200 mg/dl low riskChol 201-239 mg/dl borderline riskChol 240 mg/dl and greater high riskCholesterol in LDL Calc [Mass/Vol]Ordered By: Elizabeth Alvarado on 91-40-1590Xjmwwstydkg in LDL [Mass/Vol]78 mg/dL0-100[facility] YoungstownComment on above:LDL ATP III CLASSIFICATIONLDL less than 100 mg/dL OptimalLDL 100-129 mg/dL Near or above uostqsfGXX161-383 mg/dL Borderline highLDL 160-189 mg/dL HighLDL greater than 189 mg/dL Very highCholesterol in VLDL Calc [Mass/Vol]Ordered By: Elizabeth Alvarado on 72-68-0333Xpeqvkhnutc in VLDL [Mass/Vol]22 mg/dLSelect Medical Specialty Hospital - YoungstownCreatinine [Mass/volume] in Serum or PlasmaOrdered By: Elizabeth Alvarado on 31-02-6290Fyzrivduxb [Mass/Vol]0.65 mg/dL0.60-1.20[facility] YoungstownCreatinine [Mass/volume] in UrineOrdered By: Elizabeth Alvarado on 12-92-9406Fhemjbxuih (U) [Mass/Vol]76.0 mg/dLSelect Medical Specialty Hospital - YoungstownComment on above:No reference range establishedEosinophils Auto (Bld) [#/Vol]Ordered By: Elizabeth Alvarado on 25-06-7486Pjmmneojsmt (Bld) [#/Vol]0.3 10*3/uL0.0-0.45[facility] YoungstownEosinophils/100 WBC Auto (Bld)Ordered By: Elizabeth Alvarado on 22-84-5674Rutlewrefbr/100 WBC (Bld) 3.3 %.[facility] YoungstownErythrocyte distribution width Auto (RBC) [Ratio]Ordered By: Elizabeth Alvarado on 93-27-1868Apmreptmpig distribution width (RBC) [Ratio]15.8 %11.9-15.3FShelby Memorial HospitalGlobulin Calc (S) [Mass/Vol]Ordered By: Elizabeth Alvarado on 55-29-2596Oblalhow (S) [Mass/Vol]3.4 g/dLSelect Medical Specialty Hospital - YoungstownGlucose [Mass/volume] in Serum or PlasmaOrdered By: Elizabeth Alvarado on 19-65-1511Mzgrick [Mass/Vol]92 mg/mK10-102WferqurcnSelect Medical Specialty Hospital - YoungstownComment on above:ADA recommended reference rangeRandom Glucose Reference Range is dependent on time and content of last meal. Glucose of more than 200 mg/dL in a nonstressed, ambulatory subject supports the diagnosisof Diabetes Mellitus.Hematocrit Auto (Bld) [Volume fraction]Ordered By: Elizabeth Alvarado on 70-83-4653Yeuwfktnjw (Bld) [Volume fraction]40.6 %34.0-46.4FShelby Memorial HospitalHemoglobin [Mass/volume] in BloodOrdered By: Elizabeth Alvarado on 77-66-7130Bbypfsvrfz (Bld) [Mass/Vol]13.2 g/dL11.8-15.4FShelby Memorial HospitalLeukocytes [#/volume] corrected for nucleated erythrocytes in Blood by Automated coun Ordered By: Elizabeth Alvarado on 93-60-0271YIM corrected for nucl RBC Auto (Bld) [#/Vol]10.2 10*3/uL3.8-11.6FShelby Memorial HospitalLymphocytes Auto (Bld) [#/Vol]Ordered By: Elizabeth Alvarado on 39-44-6666Lvfwipugdul (Bld) [#/Vol]2.6 10*3/uL1.00-4.8[facility] YoungstownLymphocytes/100 WBC Auto (Bld)Ordered By: Elizabeth Alvarado on 42-21-8155Uwpaspggubd/100 WBC (Bld) 25.5 %.[facility] Auto (RBC) [Entitic mass]Ordered By: Elizabeth Alvarado on 37-29-8535HCT (RBC) [Entitic mass]26.1 pg24.7-34.3 [facility] YoungstownMCHC Auto (RBC) [Mass/Vol]Ordered By: Elizabeth Alvarado on 73-26-1495TPMX (RBC) [Mass/Vol]32.5 g/dL32.0-35.0[facility] YoungstownMCV Auto (RBC) [Entitic vol]Ordered By: Elizabeth Alvarado on 15-38-2794NSG (RBC) [Entitic vol]80.3 yH92-917HympkeoezSelect Medical Specialty Hospital - YoungstownMicroalbumin [Mass/volume] in UrineOrdered By: Elizabeth Alvarado on 93-31-6531Ubqzxqk DL <= 20 mg/L (U) [Mass/Vol]mg/dL0.0-1.8[facility] YoungstownMonocytes Auto (Bld) [#/Vol]Ordered By: Elizabeth Alvarado on 72-18-1854Dqfolszsf (Bld) [#/Vol]0.8 10*3/uL0.0-0.8[facility] YoungstownMonocytes/100 WBC Auto (Bld)Ordered By: Elizabeth Alvarado on 08-24-2023 Monocytes/100 WBC (Bld)8.1 %.[facility] YoungstownNeutrophils Auto (Bld) [#/Vol]Ordered By: Elizabeth Alvarado on 41-29-7851Gjzheoxqrtf (Bld) [#/Vol]6.4 10*3/uL1.8-7.7FShelby Memorial HospitalNeutrophils/100 WBC Auto (Bld)Ordered By: Elizabeth Alvarado on 92-57-7768Spgiftsmrif/100 WBC (Bld) 62.4 %.[facility] [place]stownNo Panel InformationOrdered By: Elizabeth Alvarado on 78-16-6634Gtvgoktjv GFR (CKD-EPI)> 60.0 mL/MinSelect Medical Specialty Hospital - YoungstownPharmacy Creatinine Clearance (ChemN/AFShelby Memorial HospitalNucleated erythrocytes [Presence] in Blood by Automated count Ordered By: Elizabeth Alvarado on 13-34-8771Berwlcjdu RBC Auto Ql (Bld)0.2 /100{WBC}0-0.5FShelby Memorial HospitalPlatelet mean volume Auto (Bld) [Entitic vol]Ordered By: Elizabeth Alvarado on 06-47-9705Ajwqrbjl mean volume (Bld) [Entitic vol]9.8 fL6.3-10.7FShelby Memorial HospitalPlatelets Auto (Bld) [#/Vol]Ordered By: Elizabeth Alvarado on 20-97-8172Iaahvnmwm (Bld) [#/Vol]283 10*3/jU384-233EdcafanbmSelect Medical Specialty Hospital - YoungstownPotassium [Moles/volume] in Serum or PlasmaOrdered By: Elizabeth Alvarado on 08-24-2023 Potassium [Moles/Vol]4.3 mmol/L3.5-5.1FShelby Memorial HospitalProtein [Mass/volume] in Serum or PlasmaOrdered By: Elizabeth Alvarado on 08-24-2023 Protein [Mass/Vol]7.7 g/dL6.4-8.9[facility] YoungstownRBC Auto (Bld) [#/Vol]Ordered By: Elizabeth Alvarado on 46-56-8129LOP (Bld) [#/Vol]5.06 10*6/uL3.60-5.00[facility] Hospitalerum or plasma albumin/globulin mass ratioOrdered By: Elizabeth Alvarado on 08-24-2023 Albumin/Globulin [Mass ratio]1.3 {ratio}[facility] Hospitalerum or plasma anion gap determinationOrdered By: Elizabeth Alvarado on 08-24-2023 Anion gap [Moles/Vol]18.1 mmol/L6.0-15.0[facility] Hospitalerum or plasma high density lipoprotein (HDL) cholesterol measurementOrdered By: Elizabeth Alvarado on 01-10-3546Zvojgeohyji in HDL [Mass/Vol]60 mg/dL23- [facility] YoungstownComment on above:HDL CHOL ATP-III CLASSIFICATION Cardiovascular RiskHDL > or equal to 60 mg/dL LOWHDL < 40 mg/dL HIGHSerum or plasma total cholesterol/high density lipoprotein (HDL) cholesterol mass ratOrdered By: Elizabeth Alvarado on 08-24-2023 Cholesterol.total/Cholesterol in HDL [Mass ratio]2.7 {ratio}<5.0[facility] Hospitalodium [Moles/volume] in Serum or PlasmaOrdered By: Elizabeth Alvarado on 72-88-1208Gufmhw [Moles/Vol]139 mmol/F527-375EaqcbegoiSelect Medical Specialty Hospital - YoungstownThyrotropin [Units/volume] in Serum or PlasmaOrdered By: Elizabeth Alvarado on 09-39-5276IIS Qn2.40 m[IU]/L0.45-5.33[facility] YoungstownTriglyceride [Mass/volume] in Serum or PlasmaOrdered By: Elizabeth Alvarado on 69-74-6677Wftrvuppdtyk [Mass/Vol]112 mg/dL0-149[facility] - YoungstownComment on above:TRIG ATP III CLASSIFICATIONTRIG less than 150 mg/dL NormalTRIG 150-199 mg/dL Borderline highTRIG 200-500 mg/dL High TRIG greater than 500 mg/dL Very highStandard traceable to the Center for Disease Co nrtrol and Prevention (CDC) test method.Urea nitrogen [Mass/volume] in Serum or PlasmaOrdered By: Elizabeth Alvarado on 44-30-5565Kxeh nitrogen [Mass/Vol]17 mg/dL7-25[facility] YoungstownUrine microalbumin/creatinine mass ratioOrdered By: Elizabethjackie Alvarado on 02-99-2564Dlrdcxy/Creatinine DL <= 20 mg/L (U) [Mass ratio][facility] MiamisburgComment on above:Test not performedWBC Auto (Bld) [#/Vol]Ordered By: Elizabethjackie Alvarado on 08-24-2023 WBC (Bld) [#/Vol]10.2 10*3/uL3.8-11.6FShelby Memorial Hospital Established Visit (Orthopaedic Surgery)on 54-11-7119Aokmgdwbvbx Visit (Orthopaedic Surgery)Chief Complaint R tTK-Revision DOS: 07/01/22 History of [...] grammatical areas may persist related to the [employer] software Merrill Alejandro PA-C . Active Problems [...] PA-C; Dec 29 2022 1:38PM EST (Author) [facility]worksEstablished [facility] (Orthopaedic Surgery)on 09-22-2022 Established Visit (Orthopaedic Surgery)Diagnoses/Problems Assessed Status post total knee replacement (V43.65) [...] side does not appear that they resurfaced thepatella. 2. [ ] 3. [ ] 4. All of the patient's questions were answered. This note was prepared using voice recognition software. The details of this note are correct and have been reviewed, and corrected to the best of my ability. Some grammatical areas may persist related to the [employer] software Acosta Schafer MD Senior Attending Physician [facility] [place] . Active Problems Problems Acute pain of [...] 1 tablet daily Results/Data Xray Knee 3 [id number] 01:48PMStAcosta batista Test NameResultFlagReference Xray Knee 3 View(Report) FINAL REPORT Interpreted by: ACOSTA SCHAFER BURTON, MD 09/22/22 14:13 Patient Name: GEETA SHELTON STUDY: KNEE; 3 VIEWS; Right; 09/22/2022 1:48 pm INDICATION: pain Z96.659: Status post total knee replacement. ACCESSION NUMBER(S): [id number] ORDERING CLINICIAN: ACOSTA SCHAFER FINDINGS: Right knee three views. Status post revision total knee replacement components in good position no signs of fracture dislocation or other bony abnormalities Electronically signed by: ACOSTA SCHAFER 09/22/22 14:13 Signatures Electronically signed by : Acosta Schafer MD; Sep 24 2022 5:54AM EST (Author) [facility] 3 VIEWSon [id number] 3 VIEWSMRN: [id number] Patient Name: GEETA SHELTON STUDY: KNEE; 3 VIEWS; Right; 09/22/2022 1:48 pm INDICATION: pain Z96.659: Status post total knee replacement. ACCESSION NUMBER(S): [id number] ORDERING CLINICIAN: ACOSTA SCHAFER FINDINGS: Right knee three views. Status post revision total knee replacement components in good position no signs of fracture dislocation or other bony abnormalities Electronically signed by: Michael CARRHca Florida Fawcett HospitalRadiologyon 47-62-0075JG Knee 3 [facility] Work Phone: Alanine aminotransferase [Enzymatic activity/volume] in Serum or PlasmaOrdered By: Zoey Ramirez on 05-68-6104DXH [Catalytic activity/Vol]45 U/L7-52[facility] YoungstownAlbumin [Mass/volume] in Serum or PlasmaOrdered By: Zoey Ramirez on 95-56-1306Azyxuxm [Mass/Vol] 3.7 g/dL2.9-4.4FShelby Memorial HospitalAlbumin [Mass/volume] in Serum or Plasma by Bromocresol green (BCG) dye binding methoOrdered By: Zoey Ramirez on 90-60-0775Mmduqmo BCG dye [Mass/Vol]4.1 g/dL3.5-5.7FShelby Memorial HospitalAlbumin/Protein.total in 24 hour Urine by Electrophoresis Ordered By: Zoey Ramirez on 49-32-4792Rvmfwgf Elph (24H U) [Mass fraction]59.9 %.[facility] - YoungstownAlkaline phosphatase [Enzymatic activity/volume] in Serum or PlasmaOrdered By: Zoey Ramirez on 40-23-3564PMO [Catalytic activity/Vol]90 U/Q54-264AvylikrauSelect Medical Specialty Hospital - YoungstownAspartate aminotransferase [Enzymatic activity/volume] in Serum or Plasma Ordered By: Zoey Ramirez on 90-15-4615TNS [Catalytic activity/Vol]40 U/L 13-39[facility] YoungstownBasophils Auto (Bld) [#/Vol]Ordered By: Zoey Ramirez on 24-07-0117Ltiyjcjjw (Bld) [#/Vol]0.1 10*3/uL0.0-0.2 [facility] YoungstownBasophils/100 WBC Auto (Bld)Ordered By: Zoey Ramirez on 59-25-3420Naivbecor/100 WBC (Bld)0.9 %.[facility] - YoungstownBilirubin.total [Mass/volume] in Serum or PlasmaOrdered By: Zoey Ramirez on 76-92-0488Vgrjuuzxy [Mass/Vol]0.4 mg/dL0.3-1.0[facility] YoungstownCalcium [Mass/volume] in Serum or PlasmaOrdered By: oZey Ramirez on 18-45-2699Zzibojh [Mass/Vol]9.1 mg/dL8.6-10.3FShelby Memorial HospitalCarbon dioxide, total [Moles/volume] in Serum or Plasma Ordered By: Zoey Ramirez on 37-01-0389OW4 [Moles/Vol]27.9 mmol/L21.0-31.0 [facility] YoungstownChloride [Moles/volume] in Serum or Plasma Ordered By: Zoey Ramirez on 39-30-9737Gloralpi [Moles/Vol]100 mmol/L 98-107[facility] YoungstownCreatinine [Mass/volume] in Serum or PlasmaOrdered By: Zoey Ramirez on 56-50-5896Xhdgcmjrzl [Mass/Vol]0.71 mg/dL0.60-1.20[facility] YoungstownEosinophils Auto (Bld) [#/Vol] Ordered By: Zoey Ramirez on 82-49-0466Ewzrjaxmcdb (Bld) [#/Vol]0.3 10*3/uL0.0-0.45[facility] YoungstownEosinophils/100 WBC Auto (Bld) Ordered By: Zoey Ramirez on 69-79-4003Xirogvvjdtu/100 WBC (Bld)3.1 %. [facility] YoungstownErythrocyte distribution width Auto (RBC) [Ratio]Ordered By: Zoey Ramirez on 98-72-3326Pvdvpmcgesa distribution width (RBC) [Ratio]16.5 %11.9-15.3FShelby Memorial HospitalFerritin [Mass/volume] in Serum or PlasmaOrdered By: Zoey Kee 08-17-2022 Ferritin [Mass/Vol]85.3 ng/mL11.0-306.8[facility] YoungstownFolate [Mass/volume] in Serum or PlasmaOrdered By: Zoey Ramirez on 08-17-2022 Folate [Mass/Vol]15.1 ng/mL>5.9[facility] YoungstownComment on above:Folate reference range: >5.9 ng/mlThe WHO technical consultation on folate and vitamin d45alhdhzgkzygj has determined that folate concentrations lessthan 4 ng/ml are considered deficient.Gamma globulin/Protein.total in 24 hour Urine by ElectrophoresisOrdered By: Zoey Ramirez on 63-87-5700Xmlgr globulin Elph (24H U) [Mass fraction]15.3 %.[facility] - YoungstownGlobulin Calc (S) [Mass/Vol]Ordered By: Zoey Ramirez 49-36-0314Copywzwm (S) [Mass/Vol]4.0 g/dLSelect Medical Specialty Hospital - YoungstownGlucose [Mass/volume] in Serum or PlasmaOrdered By: Zoey Ramirez 79-62-8299Avswndr [Mass/Vol] 142 mg/pV21-056DietwhfolSelect Medical Specialty Hospital - YoungstownComment on above:ADA recommended reference rangeRandom Glucose Reference Range is dependent on time and content of last meal. Glucose of more than 200 mg/dL in a nonstressed, ambulatory subject supports the diagnosisof Diabetes Mellitus.Hematocrit Auto (Bld) [Volume fraction]Ordered By: Zoey Ramirez 60-20-8063Ejkdvlzdhk (Bld) [Volume fraction]41.3 %34.0-46.4FShelby Memorial HospitalHemoglobin [Mass/volume] in BloodOrdered By: Zoey Ramirez 17-64-6629Hawkkhqkze (Bld) [Mass/Vol]13.2 g/dL11.8-15.4FShelby Memorial HospitalIgA [Mass/volume] in Serum or PlasmaOrdered By: Zoey Ramirez 95-99-7105CbS [Mass/Vol]498 mg/eE26-423VyyjqdkzvSelect Medical Specialty Hospital - YoungstownIgG [Mass/volume] in Serum or PlasmaOrdered By: Zoey Ramirez 20-30-8450ZcI [Mass/Vol]1834 mg/bG225-3435BpezuflvcSelect Medical Specialty Hospital - YoungstownIgM [Mass/volume] in Serum or PlasmaOrdered By: Zoey Ramirez on 43-43-8196HeK [Mass/Vol]124 mg/tP25-185 [facility] YoungstownComment on above:Performed at: [employer] [id number] Director: Jeyson Duncan PhD, Phone: [phone] for UrineOrdered By: Zoey Ramirez on 75-66-4254Mpqeyomtoqlzty Immunofixation (U) [Interp]See comment.[facility] YoungstownComment on above:No monoclonality detected.Performed at: [employer] [id number] Director: Jeyson Duncan PhD, Phone: [phone] light chains.kappa.free [Mass/volume] in SerumOrdered By: Zoey Ramirez on 08-17-2022 Immunoglobulin light chains.kappa.free (S) [Mass/Vol]47.1 mg/L3.3-19.4FShelby Memorial HospitalImmunoglobulin light chains.kappa.free/Immunoglobulin light chains.lambda.free [MassOrdered By: Zoey Ramirez on 08-17-2022 Immunoglobulin light chains.kappa.free/Immunoglobulin light chains.lambda.free (S) [Mass ratio]1.650.26-1.65[facility] YoungstownComment on above: Performed at: [employer] [id number] Director: Jeyson Duncan PhD, Phone: [phone] light chains.lambda.free [Mass/volume] in Serum or PlasmaOrdered By: Zoey Ramirez on 19-56-3658Psgjrkfywbkxcs light chains.lambda.free [Mass/Vol]28.6 mg/L5.7-26.3FShelby Memorial HospitalIron [Mass/volume] in Serum or PlasmaOrdered By: Zoey Ramirez on 97-92-4595Aqnx [Mass/Vol]41 ug/yS78-604 [facility] YoungstownIron binding capacity [Mass/volume] in Serum or PlasmaOrdered By: Zoey Ramirez on 94-41-9326Wxqt binding capacity [Mass/Vol]344 ug/hJ122-008TltdsxofySelect Medical Specialty Hospital - YoungstownIron saturation [Mass Fraction] in Serum or PlasmaOrdered By: Zoey Ramirez on 72-18-2755Hcvo saturation [Mass fraction]11.9 %20-50[facility] YoungstownLeukocytes [#/volume] corrected for nucleated erythrocytes in Blood by Automated coun Ordered By: Zoey Ramirez on 97-96-5466QEF corrected for nucl RBC Auto (Bld) [#/Vol]9.9 10*3/uL3.8-11.6FShelby Memorial HospitalLymphocytes Auto (Bld) [#/Vol]Ordered By: Zoey Ramirez on 38-20-7999Ldbhuihvarm (Bld) [#/Vol]2.8 10*3/uL1.00-4.8[facility] YoungstownLymphocytes/100 WBC Auto (Bld)Ordered By: Zoey Ramirez on 94-64-4752Oihiyzebshs/100 WBC (Bld) 28.5 %.[facility] Auto (RBC) [Entitic mass]Ordered By: Zoey Ramirez on 79-48-7053KHX (RBC) [Entitic mass]24.9 pg24.7-34.3 [facility] CenterHC Auto (RBC) [Mass/Vol]Ordered By: Zoey Ramirez on 46-58-7966YBQH (RBC) [Mass/Vol]32.0 g/dL32.0-35.0[facility] YoungstownMCV Auto (RBC) [Entitic vol]Ordered By: Zoey Ramirez on 60-06-8589NZO (RBC) [Entitic vol]77.8 yC56-720GvqfuvgtpSelect Medical Specialty Hospital - YoungstownMonocytes Auto (Bld) [#/Vol]Ordered By: Zoey Ramirez on 86-01-6269Ynttmjomy (Bld) [#/Vol]0.6 10*3/uL0.0-0.8[facility] YoungstownMonocytes/100 WBC Auto (Bld)Ordered By: Zoey Ramirez on 08-17-2022 Monocytes/100 WBC (Bld)5.9 %.[facility] YoungstownNeutrophils Auto (Bld) [#/Vol]Ordered By: Zoey Ramirez on 09-87-4373Kmwjhcimhqf (Bld) [#/Vol]6.1 10*3/uL1.8-7.7FShelby Memorial HospitalNeutrophils/100 WBC Auto (Bld)Ordered By: Zoey Ramirez on 62-19-5029Yjstncbgppy/100 WBC (Bld) 61.6 %.[facility] [place]stownNo Panel InformationOrdered By: Zoey Ramirez on 45-28-0493Hsayxbjcd GFR (CKD-EPI)> 60.0 mL/MinSelect Medical Specialty Hospital - YoungstownPharmacy Creatinine Clearance (Pwba920.85[facility] YoungstownProtein Electrophoresis M-SpikeNot observed g/dLNot Observed [facility] YoungstownProtein Electrophoresis NoteSee comment. [facility] YoungstownComment on above:Protein electrophoresis scan will follow via computer,mail, or babysitter delivery.Performed at: [facility] [place], [place] [id number] Director: Jeyson Duncan PhD, Phone: [phone] ImmunofixationComment:.[facility] Comment on above:Presence of monoclonal protein is unclear at this time. Suggestrepeat in 3 to 6 months if clinically indicated.Urine Random Prot Electrophor NoteSee comment.[facility] YoungstownComment on above: Protein electrophoresis scan will follow via computer,mail, or babysitter delivery.Performed at: [facility] [place], [place] [id number] Director: Jeyson Duncan PhD, Phone: [phone] erythrocytes [Presence] in Blood by Automated countOrdered By: Zoey Ramirez on 10-71-7261Wjqcvseej RBC Auto Ql (Bld)0.1 /100{WBC}0-0.5FShelby Memorial HospitalPlatelet mean volume Auto (Bld) [Entitic vol]Ordered By: Zoey Ramirez on 83-79-5061Wagbnkgv mean volume (Bld) [Entitic vol]8.5 fL 6.3-10.7FShelby Memorial HospitalPlatelets Auto (Bld) [#/Vol]Ordered By: Zoey Ramirez on 22-59-0016Biebnepks (Bld) [#/Vol]345 10*3/vE825-113 [facility] YoungstownPotassium [Moles/volume] in Serum or Plasma Ordered By: Zoey Ramirez on 71-08-1370Aslnvsxpi [Moles/Vol]4.7 mmol/L 3.5-5.1FShelby Memorial HospitalProtein [Mass/volume] in Serum or Plasma Ordered By: Zoey Ramirez on 83-23-3869Duuakzm [Mass/Vol]8.1 g/dL6.4-8.9 [facility] [place]stownProtein [Mass/Vol]8.0 g/dL6.0-8.5FShelby Memorial HospitalProtein [Mass/volume] in UrineOrdered By: Zoey Ramirez on 17-04-3273Cgwmzgj (U) [Mass/Vol]75.0 mg/dLNot Estab.[facility] YoungstownProtein.monoclonal/Protein.total in 24 hour Urine by ElectrophoresisOrdered By: Zoey Ramirez on 86-21-3706Vjrgqwd.monoclonal Elph (24H U) [Mass fraction]Not observed %Not ObservedSelect Medical Specialty Hospital - YoungstownRBC Auto (Bld) [#/Vol]Ordered By: Zoey Ramirez on 76-58-1516CJH (Bld) [#/Vol]5.31 10*6/uL3.60-5.00[facility] Hospitalerum globulin measurement (mass/volume)Ordered By: Zoey Ramirez on 08-17-2022 Globulin (S) [Mass/Vol]4.3 g/dL2.2-3.9[facility] Hospitalerum or plasma albumin/globulin mass ratioOrdered By: Zoey Ramirez on 08-17-2022 Albumin/Globulin [Mass ratio]1.0 {ratio}[facility] Albumin/Globulin [Mass ratio]0.9 {ratio}0.7-1.7FShelby Memorial Hospital Serum or plasma alpha 1 globulin measurement by electrophoresis (mass/volume) Ordered By: Zoey Ramirez on 08-49-5506Dbube 1 globulin Elph [Mass/Vol]0.3 g/dL0.0-0.4FAdena Pike Medical Centererum or plasma alpha 2 globulin measurement by electrophoresis (mass/volume)Ordered By: Zoey Ramirez on 87-51-6365Dpdct 2 globulin Elph [Mass/Vol]0.8 g/dL0.4-1.0[facility] Hospitalerum or plasma anion gap determinationOrdered By: Zoey Ramirez on 54-04-8027Wlayy gap [Moles/Vol]12.8 mmol/L6.0-15.0[facility] Hospitalerum or plasma beta globulin measurement by electrophoresis (mass/volume)Ordered By: Zoey Ramirez on 64-72-3692Myri globulin Elph [Mass/Vol]1.3 g/dL0.7-1.3FAdena Pike Medical Centererum or plasma gamma globulin measurement by electrophoresis (mass/volume)Ordered By: Zoey Ramirez 79-96-0465Almxy globulin Elph [Mass/Vol]1.9 g/dL0.4-1.8 [facility] Hospitalodium [Moles/volume] in Serum or PlasmaOrdered By: Zoey Ramirez 43-92-4459Xhixbw [Moles/Vol]136 mmol/G501-317 [facility] YoungstownTransferrin [Mass/volume] in Serum or Plasma Ordered By: Zoey Ramirez on 13-72-3899Hqbzeqyajrt [Mass/Vol]246 mg/dL 203-362[facility] YoungstownUrea nitrogen [Mass/volume] in Serum or PlasmaOrdered By: Zoey Ramirez on 84-36-5328Djze nitrogen [Mass/Vol]23 mg/dL7-25[facility] YoungstownUrine alpha 1 globulin/total protein by electrophoresisOrdered By: Zoey Ramirez on 35-73-3825Jcdcx 1 globulin Elph (U) [Mass fraction]4.5 %.[facility] - YoungstownUrine alpha 2 globulin/total protein ratio by electrophoresisOrdered By: Zoey Ramirez on 18-51-7117Pjhmo 2 globulin Elph (U) [Mass fraction]7.7 %.[facility] - YoungstownUrine beta globulin measurement by electrophoresis (mass/volume) Ordered By: Zoey Ramirez on 01-09-0884Mfes globulin Elph (U) [Mass/Vol] 12.6 %.[facility] YoungstownVitamin B12 ser/plasOrdered By: Zoey [facility] on 74-77-7136Bemygyakv (Vitamin B12) [Mass/Vol]387 pg/eB566-417 [facility] YoungstownWBC Auto (Bld) [#/Vol]Ordered By: Zoey Ceronced on 50-96-2704VEY (Bld) [#/Vol]9.9 10*3/uL3.8-11.6FShelby Memorial HospitalEstablished Visit (Orthopaedic Surgery)on 23-68-1200Svrdxdlcuon Visit (Orthopaedic Surgery)Chief Complaint Rt TK-Revision DOS: 07/01/22, 6 weeks out History of Present Illness History of present illness 52-year-old female presented clinic today for 6-week postop follow-up visit status post right totalknee revision conversion from a partial knee. She continues to do well. Continues to improve in regards to range of motion as well as function. She is ambulating with the assistance of a cane. Continue to do her outpatient physical therapy at [facility]. She has a few visits [...] infection. No abnormality. No calf swelling or tenderness.2+ pulses bilateral extremity. Capillary fill lowness distally. [...] PA-C; Aug 11 2022 10:34AM EST (Author) NormalUH TouchworksAlbumin [Mass/volume] in Serum or PlasmaOrdered By: Lorrie Baig on 95-54-2564Chnauto [Mass/Vol]3.3 g/dL2.9-4.4FShelby Memorial HospitalCreatine kinase [Enzymatic activity/volume] in Serum or PlasmaOrdered By: Lorrie Baig on 44-88-7356PY [Catalytic activity/Vol]51 U/K52-494BxmqvddkxSelect Medical Specialty Hospital - YoungstownErythrocyte sedimentation rate by Photometric method Ordered By: Lorrie Baig on 71-68-6547PCK Photometric method (Bld) [Velocity]65 mm/hr0-29[facility] - YoungstownFolate [Mass/volume] in Serum or PlasmaOrdered By: Lorrie Baig on 44-32-7345Jnffys [Mass/Vol]12.8 ng/mL>5.9 [facility] - YoungstownComment on above:Folate reference range: >5.9 ng/mlThe WHO technical consultation on folate and vitamin n36wpezphdudzko has determined that folate concentrations lessthan 4 ng/ml are considered deficient. Magnesium [Mass/volume] in Serum or PlasmaOrdered By: Lorrie Baig on 08-73-4413Yuaqhitxt [Mass/Vol]1.8 mg/dL1.9-2.7FShelby Memorial Hospital No Panel InformationOrdered By: Lorrie Baig on 61-35-6978Euwhkvc Electrophoresis InterpretSee comment.[facility] - YoungstownComment on above:Faint band in gamma region suspicious for monoclonalimmunoglobulin. This band may represent a benign spike asseen in older people or could be a paraprotein as seen inMultiple Myeloma, Waldenstrom's Macroglobulinemia orLymphoma. Depending on clinical circumstances, furtherdiagnostic studies may include serum immunofixation orserum free light chain quantitation.Performed at: [facility] [id number] Director: Jeyson Duncan PhD, Phone: [phone] Electrophoresis M-SpikeComment: g/dLNot ObservedSelect Medical Specialty Hospital - YoungstownComment on above:ASYMMETRICAL GAMMA Protein Electrophoresis NoteSee comment.[facility] - YoungstownComment on above:Protein electrophoresis scan will follow via computer,mail, or babysitter delivery.Phosphate [Mass/volume] in Serum or PlasmaOrdered By: Lorrie Baig on 40-79-5024Onxsrjbpi [Mass/Vol]4.5 mg/dL3.7-7.2FShelby Memorial Hospital Protein [Mass/volume] in Serum or PlasmaOrdered By: Lorrie Baig on 07-23-2022 Protein [Mass/Vol]7.2 g/dL6.0-8.5FAdena Pike Medical Centererum globulin measurement (mass/volume)Ordered By: Lorrie Baig on 15-37-6127Asvpqcef (S) [Mass/Vol]3.9 g/dL2.2-3.9[facility] Hospitalerum or plasma albumin/globulin mass ratioOrdered By: Lorrie Baig on 07-23-2022 Albumin/Globulin [Mass ratio]0.8 {ratio}0.7-1.7FShelby Memorial Hospital Serum or plasma alpha 1 globulin measurement by electrophoresis (mass/volume) Ordered By: Lorrie Baig on 45-35-3699Hkicm 1 globulin Elph [Mass/Vol]0.3 g/dL 0.0-0.4FAdena Pike Medical Centererum or plasma alpha 2 globulin measurement by electrophoresis (mass/volume)Ordered By: Lorrie Baig on 95-18-9461Gsypr 2 globulin Elph [Mass/Vol]0.7 g/dL0.4-1.0[facility] Hospitalerum or plasma beta globulin measurement by electrophoresis (mass/volume)Ordered By: Lorrie Baig on 04-80-5808Kiuy globulin Elph [Mass/Vol]1.2 g/dL0.7-1.3FAdena Pike Medical Centererum or plasma gamma globulin measurement by electrophoresis (mass/volume)Ordered By: Lorrie Baig on 25-20-4735Dnlre globulin Elph [Mass/Vol]1.7 g/dL0.4-1.8[facility] Hospital - YoungstownThyrotropin [Units/volume] in Serum or PlasmaOrdered By: Lorrie Baig on 91-07-1821FAV Qn4.76 m[IU]/L0.45-5.33[facility] Vitamin B12 ser/plasOrdered By: Lorrie Baig on 51-04-8861Aomjiwbuw (Vitamin B12) [Mass/Vol]358 pg/aJ642-665DlfvceqiiSelect Medical Specialty Hospital - YoungstownKNEE 3 VIEWSon 52-49-9638QNSQ 3 VIEWSMRN: [id number] Patient Name: GEETA SHELTON STUDY: KNEE; 3 VIEWS; Right; 07/14/2022 8:47 am INDICATION: pain Z96.659: Status post total knee replacement. ACCESSION NUMBER(S): [id number] ORDERING CLINICIAN: ACOSTA SCHAFER FINDINGS: Right knee three views. Status post revision type total knee replacement components in good position no signs of fracture dislocation or other bony abnormality dee in the soft tissues anteriorly. Electronically signed by: ACOSTA SCHAFER MDKensington HospitalPost Op (Orthopaedic Surgery)on 73-23-5121Xbdz Op (Orthopaedic Surgery) Diagnoses/Problems Assessed Status post total knee replacement (V43.65) (Z96.659) Orders Status post total knee replacement Xray Knee 3 View; Status:Resulted - Requires Verification,Retrospective Authorization; Done: 14Jul2022 08:47AM Laterality : Right [...] she will most likely do this at [facility] in [place]. Physical exam General: No acute distress and [...] Diagnostics Please see dictated x-ray report Procedure [place] removed Steri-Strips placed without complication Assessment Status [...] grammatical areas may persist related to the [place] software Merrill Alejandro PA-C . Active Problems Problems Acute pain of both knees (338.19,719.46) (M25.561,M25.562) Status post total knee replacement (V43.65) (Z96.659) Allergies Medication Penicillins Recorded By: Tarsha Murray; 05/18/2022 8:47:33 AM Current Meds Medication NameInstruction Xarelto 10 MG Oral TabletTake 1 tablet daily Results/Data Xray Knee 3 Fond68Ybu4070 08:47AMSAcosta steward Test NameResultFlagReference Xray Knee 3 View(Report) FINAL REPORT Interpreted by: ACOSTA SCHAFER BURTON, MD 07/14/22 08:49 Patient Name: GEETA SHELTON STUDY: KNEE; 3 VIEWS; Right; 07/14/2022 8:47 am INDICATION: pain Z96.659: Status post total knee replacement. ACCESSION NUMBER(S): [id number] ORDERING CLINICIAN: ACOSTA SCHAFER FINDINGS: Right knee three views. Status post revision type total knee replacement components in good position no signs of fracture dislocation or other bony abnormality dee in the soft tissues anteriorly. Electronically signed by: ACOSTA SCHAFER 07/14/22 08:49 Signatures Electronically signed by : Merrill Alejandro PA-C; Jul 14 2022 9:06AM EST (Author) NormalUH TouchworksRadiologyon 26-75-2467UL Knee 3 ViewsNoPsychiatric hospital-Center For OrthopedicsSum[facility] Work Phone: Basic Metabolic Panel Reflex Mgon 59-72-2100Tuvmb gap [Moles/Vol]10 mmol/LNormal9-15Swedish Medical CenterComment on above: Performed By: #### BMPX #### [facility] [address] [facility] [address] Gusflon [Mass/Vol]9.2 mg/dLNormal8.5-9.9Swed[facility] Medical CenterComment on above:Performed By: #### BMPX #### [facility] [address] [place] [address] Wiijbwfi [Moles/Vol]100 mmol/LGlnvxl28-981NgaslSwedish Medical CenterComment on above:Performed By: #### BMPX #### [facility] [address] [place] [address] SY5 [Moles/Vol]27 mmol/ZLzipip62-99CfagzSwedish Medical Center Comment on above:Performed By: #### BMPX #### [facility] [address] [place] [address] Ryizkrhwog [Mass/Vol]0.51 mg/dLNormal0.50-0.90Swed[facility] Medical CenterComment on above:Performed By: #### BMPX #### [facility] [address] [place] [address] NNR>60.0Normal>60Swedish Medical CenterComment on above: Result Comment: Pediatric calculator link https://www.kidney.org/professionals/kdoqi/gfr_calculatorped Effective Jan 25, [...] or following therapy that affects renal tubular secretion.Performed By: #### BMPX #### [facility] [address] [place] [address] Nmwusmx [Mass/Vol]132 mg/dLCritically bett32-06YizeySouthwest Memorial HospitalComment on above:Performed By: #### BMPX #### [facility] [address] [place] [address] Ptbfzpmsh [Moles/Vol]4.6 mmol/LNormal3.4-4.9Swed[facility] Medical CenterComment on above:Performed By: #### BMPX #### [facility] [address] [place] [address] Peagtg [Moles/Vol]137 mmol/UUyzseq271-702Jevav Regional Medical CenterComment on above:Performed By: #### BMPX #### [facility] [address] [place] [address] Nocr nitrogen [Mass/Vol]12 mg/dLNormal6-20Swed[facility] Medical CenterComment on above:Performed By: #### BMPX #### [facility] [address] [place] [address] Jifpy Metabolic Panel w/ Reflex to MGon 89-73-0560Elkya gap [Moles/Vol]10 mmol/LBON SECGALLUP INDI[facility]ENTER PinBridgeCalcium [Mass/Vol]9.2 mg/dL8.5 - 9.9 mg/dLBON SECOURS LAKEHEALTH TRIPOINT MEDICAL CENTERInetec HEALTHChloride [Moles/Vol]100 mmol/LBON SECOURS PinBridgeCO2 [Moles/Vol]27 mmol/LBON SECOURS LAKEHEALTH TRIPOINT MEDICAL CENTERFlats&HousesCreatinine [Mass/Vol]0.51 mg/dL0.50 - 0.90 mg/dLBON SECGALLUP INDIAN MEDICAL CENTER PinBridgeGFR/1.73 sq M.predicted MDRD (S/P/Bld) [Vol rate/Area]60 - PINFBON REGENCY HOSPITAL TOLEDOComment on above: Pediatric calculator link https://www.kidney.org/professionals/kdoqi/gfr_calculatorped Effective [...] therapy that affects renal tubular secretion. Glucose [Mass/Vol]132 mg/aEZazb11 - 99 mg/dLBON MARTIN L[facility]ITAL MEDICAL CENTERFlats&Houses Interpretation and review of laboratory resultsAbnormalBON MARTIN LUT[facility]OS[facility]ITAL MEDICAL CENTERFlats&Houses Potassium reflex Magnesium4.6BON SECOURS PinBridgeSodium [Moles/Vol]137 mmol/LBON SECPEACEHEALTH SOUTHWEST MEDICAL CENTERFlats&HousesUrea nitrogen (BldV) [Mass/Vol]12 mg/dL6 - 20 mg/dLBON SECOURS LAKEHEALTH TRIPOINT MEDICAL CENTERFlats&HousesBON SECOURS LAKE[facility] TRIP[facility] MEDICAL CENTERInetec [facility] O'BLENESS HOSPITALCBCon 81-26-7237Xdalnmcjvd (Bld) [Volume fraction]39.9 %37.0 - 47.0 %BON REGENCY HOSPITAL TOLEDOHemoglobin (Bld) [Mass/Vol]12.9 g/dL12.0 - 16.0 g/dLBON REGENCY HOSPITAL TOLEDOInterpretation and review of laboratory resultsAbnormalBON ACMC [facility]ALTH[facility] GLENBEIGHH (RBC) [Entitic mass]25.7 pgLow27.0 - 31.3 pgBON ACMC HEALTHCARE SYSTEM GLENBEIGHHC (RBC) [Mass/Vol]32.3 %Low33.0 - 37.0 %BON ACMC HEALTHCARE SYSTEM GLENBEIGHV (RBC) [Entitic vol] 79.6 fL79.4 - 94.8 fLSENTARA NORFOLK GENERAL HOSPITALPlatelet distribution width (Bld) [Ratio]16.5 %High11.5 - 14.5 %BON REGENCY HOSPITAL TOLEDOPlatelets (Bld) [#/Vol]230 10*3/uL130 - 400 K/[facility] Memorial HospitalRBC (Bld) [#/Vol]5.02 10*6/uLSENTARA NORFOLK GENERAL HOSPITALWBC (Bld) [#/Vol]9.2 10*3/uL4.8 - 10.8 K/uLRIVERSIDE WALTER REED HOSPITALCBC With Platelet No Differentialon 07-03-2022 Erythrocyte distribution width (RBC) [Ratio]16.5 %Critically high11.5-14.5Swedish Medical CenterComment on above:Performed By: #### CBCND #### [facility] [address] [place] [address] Guucqhwglb (Bld) [Volume fraction]39.9 %Furdli42.0-47.0Swedish Medical CenterComment on above:Performed By: #### CBCND #### [facility] [address] [place] [address] Tucsfkeryl (Bld) [Mass/Vol]12.9 g/uATtgzid92.0-16.0Swedish Medical CenterComment on above:Performed By: #### CBCND #### [facility] [address] [place] [address] DVK (RBC) [Entitic mass]25.7 pgLow27.0-31.3MSouthwest Memorial HospitalComment on above:Performed By: #### CBCND #### [facility] [address] [place] [address] WKSA81.3 %Low33.0-37.0Swedish Medical CenterComment on above: Performed By: #### CBCND #### [facility] [address] [place] [address] ELG (RBC) [Entitic vol]79.6 vUAulymc65.4-94.8Swedish Medical CenterComment on above:Performed By: #### CBCND #### [facility] [address] [place] [address] Dqrnycpwc (Bld) [#/Vol]230 10*3/rCNrsnez094-205WxmslSwedish Medical CenterComment on above:Performed By: #### CBCND #### [facility] [address] [place] [address] JOC (Bld) [#/Vol]5.02 10*6/uLNormal4.20-5.40Swedish Medical CenterComment on above:Performed By: #### CBCND #### [facility] [address] [place] [address] NLD (Bld) [#/Vol]9.2 10*3/uLNormal4.8-10.8Swedish Medical CenterComment on above:Performed By: #### CBCND #### [facility] [address] [place] [address] Fkskr Metabolic Panel Reflex Mgon 98-94-6014Uuobg gap [Moles/Vol]8 mmol/LLow9-15Swedish Medical CenterComment on above:Order Comment: Collection has been rescheduled by VALDO at 07/02/2022 05:49 Reason: Come back last per rn jessicaPerformed By: #### BMPX #### [facility] [address] [place] [address] Bsdejik [Mass/Vol]8.9 mg/dLNormal8.5-9.9Swed[facility] Medical CenterComment on above:Order Comment: Collection has been rescheduled by HERAM at 07/02/2022 05:49 Reason: Come back last per rn jessicaPerformed By: #### BMPX #### [facility] [address] [place] [address] Aglqvcvt [Moles/Vol]100 mmol/HLakegr36-636FfexiSwedish Medical CenterComment on above:Order Comment: Collection has been rescheduled by HERAM at 07/02/2022 05:49 Reason: Come back last per rn jessicaPerformed By: #### BMPX #### [facility] [address] [place] [address] SR8 [Moles/Vol]27 mmol/FBppdtn45-14IzbzeSwedish Medical Center Comment on above:Order Comment: Collection has been rescheduled by HERAM at 07/02/2022 05:49 Reason: Come back last per rn jessicaPerformed By: #### BMPX #### [facility] [address] [place] [address] Mbcsfudetf [Mass/Vol]0.61 mg/dLNormal0.50-0.90Swed[facility] Medical CenterComment on above:Order Comment: Collection has been rescheduled by HERAM at 07/02/2022 05:49 Reason: Come back last per rn jessicaPerformed By: #### BMPX #### [facility] [address] [place] [address] XUR>60.0Normal>60Swed[facility] Medical CenterComment on above:Order Comment: Collection has been rescheduled by HERAM at 07/02/2022 05:49 Reason: Come back last per rn jessicaResult Comment: Pediatric calculator link https://www.kidney.org/professionals/kdoqi/gfr_calculatorped Effective Jan 25, [...] or following therapy that affects renal tubular secretion.Performed By: #### BMPX #### [facility] [address] [place] [address] Cfipzmi [Mass/Vol]144 mg/dLCritically drmp36-39OeasvSouthwest Memorial HospitalComment on above:Order Comment: Collection has been rescheduled by HERAM at 07/02/2022 05:49 Reason: Come back last per rn jessicaPerformed By: #### BMPX #### [facility] [address] [facility] [address] Ztwfzgudr [Moles/Vol]4.8 mmol/LNormal3.4-4.9Swed[facility] Medical CenterComment on above:Order Comment: Collection has been rescheduled by HERAM at 07/02/2022 05:49 Reason: Come back last per rn jessicaPerformed By: #### BMPX #### [facility] [address] [facility] [address] Ttghuf [Moles/Vol]135 mmol/NAlhtsm412-528GiwedSwedish Medical CenterComment on above:Order Comment: Collection has been rescheduled by HERAM at 07/02/2022 05:49 Reason: Come back last per rn jessicaPerformed By: #### BMPX #### [facility] [address] [facility] [address] Rfwg nitrogen [Mass/Vol]21 mg/dLCritically high6-20Swed[facility] Medical CenterComment on above:Order Comment: Collection has been rescheduled by HERAM at 07/02/2022 05:49 Reason: Come back last per rn jessicaPerformed By: #### BMPX #### [facility] [address] [facility] [address] Ykbvc Metabolic Panel w/ Reflex to MGon 61-46-4685Bdcdp gap [Moles/Vol]8 mmol/LLowBON REGENCY HOSPITAL TOLEDOCalcium [Mass/Vol]8.9 mg/dL8.5 - 9.9 mg/dLBON REGENCY HOSPITAL TOLEDOChloride [Moles/Vol]100 mmol/LBON REGENCY HOSPITAL TOLEDOCO2 [Moles/Vol]27 mmol/LBON [facility]ENCY [facility]OSPITAL TOLEDOCreatinine [Mass/Vol]0.61 mg/dL0.50 - 0.90 mg/dLBON REGENCY HOSPITAL TOLEDOGFR/1.73 sq M.predicted MDRD (S/P/Bld) [Vol rate/Area]60 - PINFBON REGENCY HOSPITAL TOLEDOComment on above: Pediatric calculator link https://www.kidney.org/professionals/kdoqi/gfr_calculatorped Effective [...] therapy that affects renal tubular secretion. Glucose [Mass/Vol]144 mg/aKStyb61 - 99 mg/dLBON REGENCY [facility]OS[facility]ITAL TOLEDO Interpretation and review of laboratory resultsAbFort Belvoir Community Hospital Potassium reflex Magnesium4.8BON [facility]ENCY [facility]ITAL TOLEDOSodium [Moles/Vol]135 mmol/LBON REGENCY HOSPITAL TOLEDOUrea nitrogen (BldV) [Mass/Vol]21 mg/dLHigh6 - 20 mg/dLBON REGENCY HOSPITAL TOLEDOCollection has been rescheduled by VLADO at 07/02/2022 05:49 Reason: Come back last per rn [facility] LABSENTARA NORFOLK GENERAL HOSPITALCBCon 44-53-2265Ffjctfofho (Bld) [Volume fraction]40.3 %37.0 - 47.0 %S[facility] NORFOLK GENERAL HOSPITALHemoglobin (Bld) [Mass/Vol]12.9 g/dL12.0 - 16.0 g/dLBON REGENC[facility]ITAL TOLEDOInterpretation and review of laboratory resultsAbnormalBON SECOURS MERCY HEALTHMCH (RBC) [Entitic mass]25.5 pgLow27.0 - 31.3 pgSENTARA NORFOLK GENERAL HOSPITALMCHC (RBC) [Mass/Vol]32.1 %Low33.0 - 37.0 %[facility] MCV (RBC) [Entitic vol]79.6 fL79.4 - 94.8 fLSENTARA NORFOLK GENERAL HOSPITALPlatelet distribution width (Bld) [Ratio]16.3 %High11.5 - 14.5 %[facility] Platelets (Bld) [#/Vol]230 10*3/uL130 - 400 K/uLSENTARA NORFOLK GENERAL HOSPITALRBC (Bld) [#/Vol]5.06 10*6/uLSENTARA NORFOLK GENERAL HOSPITALWBC (Bld) [#/Vol]9.1 10*3/uL4.8 - 10.8 K/uLSENTARA NORFOLK GENERAL HOSPITALCollection has been rescheduled by VALDO at 07/02/2022 05:49 Reason: Come back last per rn [facility] LABSENTARA NORFOLK GENERAL HOSPITALCBC With Platelet No Differentialon 88-72-8669Ewatoyizmcu distribution width (RBC) [Ratio]16.3 %Critically high11.5-14.5[facility] Comment on above:Order Comment: Collection has been rescheduled by VALDO at 07/02/2022 05:49 Reason: Come back last per rn jessicaPerformed By: #### CBCND #### [facility] [address] [facility] [address] Yjquavnunq (Bld) [Volume fraction]40.3 %Dzjutz22.0-47.0Swed[facility] Medical CenterComment on above:Order Comment: Collection has been rescheduled by VALDO at 07/02/2022 05:49 Reason: Come back last per rn rudolphssicaPerformed By: #### CBCND #### [facility] [address] [facility] [address] Wdgsrjykfg (Bld) [Mass/Vol]12.9 g/dZZsonyf58.0-16.0[facility] Medical CenterComment on above:Order Comment: Collection has been rescheduled by HERAM at 07/02/2022 05:49 Reason: Come back last per rn jessicaPerformed By: #### CBCND #### [facility] [address] [place] [address] IXK (RBC) [Entitic mass]25.5 pgLow27.0-31.3MSouthwest Memorial HospitalComment on above:Order Comment: Collection has been rescheduled by HERAM at 07/02/2022 05:49 Reason: Come back last per rn jessicaPerformed By: #### CBCND #### [facility] [address] [facility] [address] [facility] [facility] [address] EIBZ37.1 %Low33.0-37.0Swed[facility] Medical CenterComment on above: Order Comment: Collection has been rescheduled by HERAM at 07/02/2022 05:49 Reason: Come back last per rn jessicaPerformed By: #### CBCND #### [facility] [address] [facility] [address] VYQ (RBC) [Entitic vol]79.6 yBQwliew35.4-94.8Swed[facility] Medical CenterComment on above:Order Comment: Collection has been rescheduled by HERAM at 07/02/2022 05:49 Reason: Come back last per rn jessicaPerformed By: #### CBCND #### [facility] [address] [facility] [address] Qtcgfpeos (Bld) [#/Vol]230 10*3/eLUxftnv938-042XalsgSwedish Medical CenterComment on above:Order Comment: Collection has been rescheduled by HERAM at 07/02/2022 05:49 Reason: Come back last per rn jessicaPerformed By: #### CBCND #### [facility] [address] [facility] [address] YYI (Bld) [#/Vol]5.06 10*6/uLNormal4.20-5.40Swed[facility] Medical CenterComment on above:Order Comment: Collection has been rescheduled by HERMICHELLE at 07/02/2022 05:49 Reason: Come back last per rn jessicaPerformed By: #### CBCND #### [facility] [address] [place] [address] WMW (Bld) [#/Vol]9.1 10*3/uLNormal4.8-10.8Swed[facility] Medical CenterComment on above:Order Comment: Collection has been rescheduled by HERAM at 07/02/2022 05:49 Reason: Come back last per rn jessicaPerformed By: #### CBCND #### [facility] [address] [place] [address] XJ DUP UPPER EXTREMITY LEFT VENOUSon 34-59-1576CQ DUP UPPER EXTREMITY LEFT VENOUSEXAMINATION: VENOUS ULTRASOUND OF THE LEFT UPPER EXTREMITY, [...] Signed by: Jean Sifuentes MD 07/02/22 Final resultNormGrand River HealthNo evidence of DVT. [facility] RADIOLOGYEXAMINATION: VENOUS ULTRASOUND OF THE LEFT UPPER EXTREMITY, [...] normal color flow study and spectral analysis. Jean Fitzgerald MD - 07/02/2022 EXAMINATION: VENOUS ULTRASOUND OF [...] spectral analysis. IMPRESSION: No evidence of DVT. [employer] Phone: bON [employer] Phone: radiology Study observation (narrative)[employer] Phone: XR KNEE RIGHT (1-2 VIEWS)on [id number] KNEE RIGHT (1-2 VIEWS)EXAMINATION: TWO XRAY VIEWS OF THE RIGHT KNEE [...] Signed by: Jean Sifuentes MD 07/01/22 Final resultNoUCHealth Grandview HospitalNormal postsurgical appearance [facility] RADIOLOGYEXAMINATION: TWO XRAY VIEWS OF THE RIGHT KNEE [...] are intact. Overlying surgical dee are seen Jean Fitzgerald MD - 07/01/2022 EXAMINATION: TWO XRAY VIEWS [...] dee are seen IMPRESSION: Normal postsurgical appearance [employer] Phone: radiology Study observation (narrative)[employer] Phone: XR KNEE RIGHT (1-2 VIEWS)Ordered By: Jean Sifuentes on [id number] [employer] Phone: MRSA DNA Probe, Nasalon 20-66-1749JLUN, DNA, Nasal NegativeNEGSOUTHEASTERN ARIZONA BEHAVIORAL HEALTH SERVICES DerbyJackpotComment on above:NEGATIVE: MRSA DNA not detected by nucleic acid amplification. Results should be used as an adjunct to nosocomial control efforts to identify patients needing enhanced precautions. The test is not intended to identify patients with staphylococcal infections. Results should not be used to guide or monitor treatment for MRSA infections. Query Hunter [address] [place] [address] Specimen DescriptionSwabB Allied Resource CorporationMRSA, DNA, Nasalon 88-69-3801SKMX, DNA, NasalNegativeNormalNEGSwedish Medical CenterComment on above:Result Comment: NEGATIVE: MRSA DNA not detected by nucleic acid amplification. Results should be used as an adjunct to nosocomial control efforts to identify patients needing enhanced precautions. The test is not intended to identify patients with staphylococcal infections. Results should not be used to guide or monitor treatment for MRSA infections. Query Hunter [address] [place] [address] ([phone] By: #### IMRSA #### [facility] [address] [place] [address] XFB 12 LeadOrdered By: Leigh Ann Nash on 87-95-1760Mycaws Gpet50HALVCN [employer] Phone: P Vtch04kmxreuoEJA [employer] Phone: [phone]-R Hevvwkqv149 [employer] Phone: Q-T Nbysvigc201 [employer] Phone: [phone] Gbcolgcm110 msBioapter Phone: [phone] Calculation (Bazett)447 msBioapter Phone: [phone] Qees88ohmogapCHH [employer] Phone: [phone] Tcjs48pqivgqnROEBioapter Phone: Ventricular Vjlr42AUVQLP [employer] Phone: BON [employer] Phone: [phone] 12 Leadon 54-86-0306Ohqlci sinus rhythm Incomplete right bundle branch block Confirmed by LEIGH ANN NASH ([id number]) on 06/25/2022 6:49:48 PMMLLeigh Ann Lugo, DO - 06/25/2022 Normal sinus rhythm Incomplete right bundle branch block Confirmed by LEIGH ANN NASH ([id number]) on 06/25/2022 6:49:48 PM [facility] [employer] Phone: established Visit (Orthopaedic Surgery)on 06-25-2022 Established Visit (Orthopaedic Surgery)Chief Complaint Pre-op RT TK-Revision 07/01/22 @ [facility] History of Present Illness This patient has pain in the knee that is worsening. The pain increases with activity and with weightbearing, and interferes with daily activities. There is pain with range of motion, limited range of motion, crepitus and swelling. The x-ray demonstrates joint space narrowing, osteophyte formation,and subchondral sclerosis. The symptoms have worsened in spite of extensive medical treatment, therapy, and external support over at least the past 3 months. This is the preop visit to discuss the risks and benefits of the total knee replacement surgery. These risks were fully explained to the patient. With this, and any surgery, infection is a risk, thisis usually 1 to 2%, even higher in [...] with the patient. We discussed that these canbe fatal complications to the surgery. It is [...] sometimes stiffness may occur. It is important thatthe patient go to physical therapy postoperatively. It [...] plans on performing outpatient physical therapy at [facility] in [place]. All of the patient's questions and concerns [...] PA-C; Jun 25 2022 2:21PM EST (Author) NormalUH TouchworksPT Initial Evaluationon [id number] Initial Evaluation Therapy Diagnosis Assessed Acute pain [...] gait/locomotion, balance, coordination, fall risk, transfers, decreased knowled ge of assisted device use, integumentary, decreased knowledge [...] return to therapy, patient's status will be re- assessed and goals updated. Reason For Visit Initial [...] today's treatment with some difficulty. Evaluation Code: 46939 PT Eval: Low Complexity, 32 min(s). Resources provided today: education Signatures Electronically signed by : Natali Tyson, PT DPT; Jun 30 2022 10:08AM EST (Author) [facility] TouchworksAPTTon 33-19-2891hSPO Coag (Bld) [Time]30.1 sBON REGENCY HOSPITAL TOLEDOComment on above:Effective 02/27/2020: Heparin Therapeutic Range: 64.0 98.0 seconds. [facility] With Platelet and Differentialon 19-57-5475Pxxepwoym (Bld) [#/Vol]0.1 10*3/uLNormal0.0-0.2MSouthwest Memorial HospitalComment on above:Performed By: #### CBCWD #### [facility] [address] [facility] [address] [facility] [address] Mepemsyev/100 WBC (Bld)0.6 %[facility] Comment on above:Performed By: #### CBCWD #### [facility] [address] [place] [address] Muvswlgbako (Bld) [#/Vol]0.1 10*3/uLNormal0.0-0.7Swedish Medical CenterComment on above:Performed By: #### CBCWD #### [facility] [address] [place] [address] Zvyayvnsedz/100 WBC (Bld)1.6 %[facility] Comment on above:Performed By: #### CBCWD #### [facility] [address] [place] [address] Xutkujttzyp distribution width (RBC) [Ratio]16.4 %Critically high 11.5-14.5Swed[facility] Medical CenterComment on above:Performed By: #### CBCWD #### [facility] [address] [place] [address] Jkclvwoyeg (Bld) [Volume fraction]44.4 %Hhgdai76.0-47.0Swed[facility] Medical CenterComment on above:Performed By: #### CBCWD #### [facility] [address] [place] [address] Cvlwxwvptn (Bld) [Mass/Vol]14.2 g/jZDcvnxp12.0-16.0[facility] Medical CenterComment on above:Performed By: #### CBCWD #### [facility] [address] [place] [address] Qqdgjulqfdi (Bld) [#/Vol]2.3 10*3/uLNormal1.0-4.8[facility] Medical CenterComment on above:Performed By: #### CBCWD #### [facility] [address] [place] [address] Klpmxxkctnk/100 WBC (Bld)25.8 %NormalSwedish Medical Center Comment on above:Performed By: #### CBCWD #### [facility] [address] [place] [address] PQM (RBC) [Entitic mass]25.1 pgLow27.0-31.3MSouthwest Memorial HospitalComment on above:Performed By: #### CBCWD #### [facility] [address] [place] [address] PPHP52.0 %Low33.0-37.0Swedish Medical CenterComment on above: Performed By: #### CBCWD #### [facility] [address] [place] [address] CPI (RBC) [Entitic vol]78.5 fLLow79.4-94.8[facility] Medical CenterComment on above:Performed By: #### CBCWD #### [facility] [address] [place] [address] Jdvpoaeqx (Bld) [#/Vol]0.8 10*3/uLNormal0.2-0.8[facility] Medical CenterComment on above:Performed By: #### CBCWD #### [facility] [address] [place] [address] Civnpofne/100 WBC (Bld)9.4 %[facility] Comment on above:Performed By: #### CBCWD #### [facility] [address] [place] [address] Hmmuhatgmju (Bld) [#/Vol]5.6 10*3/uLNormal1.4-6.5Swedish Medical CenterComment on above:Performed By: #### CBCWD #### [facility] [address] [place] [address] Rpcwxukhdej/100 WBC (Bld)62.6 %[facility] Comment on above:Performed By: #### CBCWD #### [facility] [address] [place] [address] Gkgljlmmr (Bld) [#/Vol]281 10*3/wXMyhxsa835-871EsmftSwedish Medical CenterComment on above:Performed By: #### CBCWD #### [facility] [address] [place] [address] CDB (Bld) [#/Vol]5.66 10*6/uLCritically high4.20-5.40Swed[facility] Medical CenterComment on above:Performed By: #### CBCWD #### [facility] [address] [place] [address] GNP (Bld) [#/Vol]8.9 10*3/uLNormal4.8-10.8[facility] Medical CenterComment on above:Performed By: #### CBCWD #### [facility] [address] [place] [address] RFN with Auto Differentialon 77-72-7581Hbbkvqfmu (Bld) [#/Vol]0.1 10*3/uL0.0 - 0.2 K/uLBON REGENCY HOSPITAL TOLEDOBasophils/100 WBC (Bld)0.6 %[facility] HOSPITALEosinophils (Bld) [#/Vol]0.1 10*3/uL0.0 - 0.7 K/uLBON REGENCY HOSPITAL TOLEDOEosinophils/100 WBC (Bld)1.6 %[facility] Hematocrit (Bld) [Volume fraction]44.4 %37.0 - 47.0 %[facility] Hemoglobin (Bld) [Mass/Vol]14.2 g/dL12.0 - 16.0 g/dLBON REGENCY [facility]ITAL [facility] Interpretation and review of laboratory resultsAbnormalSENTARA NORFOLK [facility]AL [facility]OSPITAL Lymphocytes (Bld) [#/Vol]2.3 10*3/uL1.0 - 4.8 K/uLBON REGENCY HOSPITAL TOLEDO Lymphocytes/100 WBC (Bld)25.8 %[facility]OSPITALH (RBC) [Entitic mass] 25.1 pgLow27.0 - 31.3 pgSENTARA LEIGH HOSPITALHC (RBC) [Mass/Vol]32.0 %Low 33.0 - 37.0 %[facility] HOSPITALMCV (RBC) [Entitic vol]78.5 fLLow79.4 - 94.8 fLSENTARA NORFOLK GENERAL HOSPITALMonocytes (Bld) [#/Vol]0.8 10*3/uL0.2 - 0.8 K/uL [facility] HOSPITALMonocytes/100 WBC (Bld)9.4 %[facility] Neutrophils Absolute5.6 K/uL1.4 - 6.5 K/uLBON REGENCY HOSPITAL [facility]OLEDO Neutrophils/100 WBC (Bld)62.6 %[facility] HOSPITALPlatelet distribution width (Bld) [Ratio]16.4 %High11.5 - 14.5 %[facility] HOSPITALPlatelets (Bld) [#/Vol]281 10*3/uL130 - 400 K/uLBON REGENCY HOSPITAL TOLEDORBC (Bld) [#/Vol] 5.66 10*6/uLHighBON REGENCY HOSPITAL TOLEDOWBC (Bld) [#/Vol]8.9 10*3/uL4.8 - 10.8 K/BON [facility]ALTHCARE CENTERComprehensive Metabolic Panelon 04-24-1828Xckzasg [Mass/Vol]4.2 g/dLNormal3.5-4.6MSouthwest Memorial HospitalComment on above:Performed By: #### UMIC #### [facility] [address] [place] [address] ZGX [Catalytic activity/Vol]89 U/BFqzwbo92-843WuxasSwedish Medical CenterComment on above:Performed By: #### UMIC #### [facility] [address] [place] [address] BQV [Catalytic activity/Vol]47 U/LCritically high0-33Swed[facility] Medical CenterComment on above:Performed By: #### UMIC #### [facility] [address] [place] [address] Cjtbc gap [Moles/Vol]13 mmol/LNormal9-15Swed[facility] Medical CenterComment on above:Performed By: #### UMIC #### [facility] [address] [place] [address] KOT [Catalytic activity/Vol]44 U/LCritically high0-35Swed[facility] Medical CenterComment on above:Performed By: #### UMIC #### [facility] [address] [place] [address] Tgxmtdvoq [Mass/Vol]0.5 mg/dLNormal0.2-0.7[facility] Medical CenterComment on above:Performed By: #### UMIC #### [facility] [address] [place] [address] Hedtnqr [Mass/Vol]9.2 mg/dLNormal8.5-9.9[facility] Medical CenterComment on above:Performed By: #### UMIC #### [facility] [address] [place] [address] Bqpadjnk [Moles/Vol]100 mmol/WEuasyx35-515EgaesSwedish Medical CenterComment on above:Performed By: #### UMIC #### [facility] [address] [place] [address] ZS6 [Moles/Vol]26 mmol/XYmknxw01-79DqhtsSwedish Medical Center Comment on above:Performed By: #### UMIC #### [facility] [address] [place] [address] Ofbjrpdotc [Mass/Vol]0.54 mg/dLNormal0.50-0.90Swed[facility] Medical CenterComment on above:Performed By: #### UMIC #### [facility] [address] [place] [address] IXX>60.0Normal>60Swedish Medical CenterComment on above: Result Comment: Pediatric calculator link https://www.kidney.org/professionals/kdoqi/gfr_calculatorped Effective Jan 25, [...] or following therapy that affects renal tubular secretion.Performed By: #### UMIC #### [facility] [address] [place] [address] Obyfrpkd (S) [Mass/Vol]3.9 g/dLCritically high2.3-3.5Swed[facility] Medical CenterComment on above:Performed By: #### UMIC #### [facility] [address] [place] [address] Xfzerex [Mass/Vol]124 mg/dLCritically uxht75-46AdhweSouthwest Memorial HospitalComment on above:Performed By: #### UMIC #### [facility] [address] [place] [address] Jlvuaveqe [Moles/Vol]4.4 mmol/LNormal3.4-4.9Swed[facility] Medical CenterComment on above:Performed By: #### UMIC #### [facility] [address] [place] [address] Srnvwda [Mass/Vol]8.1 g/dLCritically high6.3-8.0[facility] Medical CenterComment on above:Performed By: #### UMIC #### [facility] [address] [place] [address] Urygtz [Moles/Vol]139 mmol/IBmacvc494-229UhfauSwedish Medical CenterComment on above:Performed By: #### UMIC #### [facility] [address] [place] [address] Moyt nitrogen [Mass/Vol]14 mg/dLNormal6-20Swedish Medical CenterComment on above:Performed By: #### UMIC #### [facility] [address] [place] [address] Ormtfbu [Mass/Vol]4.2 g/dL3.5 - 4.6 g/dLBON SECOU[facility] LAKEHEALTH TRIPOINT MEDICAL CENTERY HEALTHALP (Bld) [Catalytic activity/Vol]89 U/L40 - 130 U/LBON SECOURS MERCY HEALTHALT [Catalytic activity/Vol]47 U/LHigh0 - 33 U/LBON SECOURS MERCY HEALTHAnion gap [Moles/Vol]13 mmol/LBON [facility] TRIPO[facility] MEDICAL CENTERY HEALTHAST [Catalytic activity/Vol]44 U/L High0 - 35 U/LBON [facility]RS MERCY HEALTHBilirubin [Mass/Vol]0.5 mg/dL0.2 - 0.7 mg/dLBON [facility]OURS MERCY HEALTHCalcium [Mass/Vol]9.2 mg/dL8.5 - 9.9 mg/dLBON SECOURS MERCY HEALTHChloride [Moles/Vol]100 mmol/LBON SECOURS MERCY HEALTHCO2 [Moles/Vol]26 mmol/LBON [facility]RS MERCY HEALTHCreatinine [Mass/Vol]0.54 mg/dL0.50 - 0.90 mg/dLBON [facility] CENTERY HEALTHGFR/1.73 sq M.predicted MDRD (S/P/Bld) [Vol rate/Area]60 - PINFBON REGENCY HOSPITAL TOLEDOComment on above:Pediatric calculator link https://www.kidney.org/professionals/kdoqi/gfr_calculatorped Effective Jan 25, 2022 [...] that affects renal tubular secretion. Globulin (S) [Mass/Vol]3.9 g/dLHigh2.3 - 3.5 g/dLBON REGENCY HOSPITAL TOLEDOGlucose [Mass/Vol]124 mg/xZHtmt42 - 99 mg/dLBON [facility] HEALTHInterpretation and review of laboratory resultsAbnormalBON [facility]ENCY HOSPITAL TOLEDOPotassium [Moles/Vol]4.4 mmol/LBON [facility] HEALTHProtein [Mass/Vol]8.1 g/dLHigh6.3 - 8.0 g/dLBON REGENCY HOSPITAL TOLEDOSodium [Moles/Vol]139 mmol/LBON REGENCY HOSPITAL TOLEDOUrea nitrogen (BldV) [Mass/Vol]14 mg/dL6 - 20 mg/dLBON AVER[facility] GREGORY HEALTHCARE CENTERLaboratory - Coagulationon 85-71-7679KQO Coag (Bld) [Relative time]1.1 {INR}[facility] Work Phone: Laboratory - Hematology and Cell countson 06-24-2022 Basophils/100 WBC (Bld)0.6 %[facility] Work Phone: Eosinophils/100 WBC (Bld)1.6 %[facility] Work Phone: Lymphocytes/100 WBC (Bld)25.8 %[facility] Work Phone: Monocytes/100 WBC (Bld)9.4 %NormalUH [facility] Work Phone: Neutrophils/100 WBC (Bld)62.6 %Normal [facility] Work Phone: [phone], DNA, Nasalon 24-09-2426Vaebaqqf DescriptionSwab [facility]'s Hospital ColoradoComment on above:Performed By: #### IMRSA #### [facility] [address] [place] [address] Mfiauqiccec Urinalysison 92-31-7045Yyciuhnq, UAFEWAbnormalNegative /HPFBON REGENCY HOSPITAL TOLEDOEpithelial Cells, UA0-2[facility] Hyaline Casts, UA0-1BON REGENCY HOSPITAL TOLEDORBC, UA0-2[facility] WBC, UA3-5BON [facility] HEALTHNo Panel Informationon 06-24-2022 Interpretation and review of laboratory resultsAbnormalBON REGENC[facility]OSPITAL TOLEDO BON REGENCY HOSPITAL TOLEDOTRACEAbnormalNegative [facility] Work Phone: NegativeNormalNegative [facility] Work Phone: [phone] {E.U./dL}Normal< 2.0 [facility] Work Phone: [phone] mg/dLAbnormalNegative [facility] Work Phone: [phone] 3Rfmlyl8.0-9.0 [facility] Work Phone: Not IndicatedNormalUH [facility] Work Phone: [phone] 2Cthuym1.005-1.03 [facility] Work Phone: ClearNormalClear [facility] Work Phone: YellowNormalStraw/Yell [facility] Work Phone: [phone] [facility] Work Phone: [phone] Work Phone: [phone] Work Phone: FEWAbnormalNegativeUH [facility] Work Phone: [phone] K/aRAcbluf879-023TX [facility] Work Phone: [phone] %above high ahmcsvuql74.5-14.5[facility] Work Phone: [phone] %below low hnkglqwuu25.0-37.0[facility] Work Phone: [phone] K/uLNormal0.0-0.2UH [facility] Work Phone: [phone] K/uLNormal0.2-0.8[facility] Work Phone: [phone] K/uLNormal1.0-4.8[facility] Work Phone: [phone] K/uLNormal1.4-6.5[facility] Work Phone: [phone] pgbelow low jpvxgxlwu66.0-31.3[facility] Work Phone: [phone] fLbelow low dvbsugtca54.4-94.8[facility] Work Phone: [phone] %Znuwfz45.0-47.0[facility] Work Phone: [phone] g/qRWffoef67.0-16.0[facility] Work Phone: [phone] {M/uL}above high threshold4.20-5.40[facility] Work Phone: [phone] K/uLNormal4.8-10.8[facility] Work Phone: [phone] {sec}Vknwch99.3-14.9[facility] Work Phone: [phone] {sec}Qfmmzb45.4-36.8[facility] Work Phone: Comment on above:Effective 02/27/2020:Heparin Therapeutic Range: 64.0 ? 98.0 seconds.4.2 g/dLNormal3.5-4.6[facility] Work Phone: [phone] g/dLabove high threshold2.3-3.5[facility] Work Phone: [phone] U/Labove high threshold0-35[facility] Work Phone: [phone] U/Labove high threshold0-33[facility] Work Phone: [phone] U/JQswgye54-782TG [facility] Work Phone: [phone] mg/dLNormal0.2-0.7[facility] Work Phone: [phone] g/dLabove high threshold6.3-8.0[facility] Work Phone: [phone] mg/dLNormal8.5-9.9[facility] Work Phone: >60.0Normal>60[facility] Work Phone: Comment on above:Pediatric calculator linkhttps://www.kidney.org/professionals/kdoqi/gfr_calculatorpedEffective Jan 25, 2022These results are not intended for use in patients<18 years of age. eGFR results are calculated withouta race factor using the 2020 CKD-EPI equation. Carefulclinical correlation is recommended, particularly whencomparing to results calculated using previous equations.The CKD-EPI equation is less accurate in patients withextremes of muscle mass, extra-renal metabolism ofcreatinine, excessive creatinine ingestion, or followingtherapy that affects renal tubular secretion.0.54 mg/dLNormal0.50-0.90[facility] Work Phone: [phone] mg/dLNormal6-20UH [facility] Work Phone: [phone] mg/dLabove high tnrawzdgj59-39BH [facility] Work Phone: [phone] {mEq/L}Normal9-15 [facility] Work Phone: [phone] {mEq/L}Inpxid06-85KV [facility] Work Phone: [phone] {mEq/L}Ngzemw80-861EF [facility] Work Phone: [phone] {mEq/L}Normal3.4-4.9UH [facility] Work Phone: [phone] {mEq/L}Tcgcqx189-062ZV [facility] Work Phone: NegativeNormalNEGUH [facility]Tr[facility] Work Phone: Comment on above:NEGATIVE: MRSA DNA not detected by nucleic acid amplification. Results should be used as an adjunctto nosocomial control efforts toidentify patients needing enhanced precautions.The test is not intended to identify patients with staphylococcalinfections. Results should not be used to guide or monitor treatmentfor MRSA infections.Query Hunter [facility] [place] [address] ([phone] [facility]hab ServicesTrident [facility] Work Phone: Partial Thromboplastin Timeon 69-99-7117kJJF Coag (Bld) [Time]30.1 kRmabsv97.4-36.8Swed[facility] Medical CenterComment on above: Result Comment: Effective 02/27/2020: Heparin Therapeutic Range: 64.0 ? 98.0 seconds.Performed By: #### UMIC #### [facility] [address] [place] [address] Gdenblwypot Timeon 62-37-6520TMG Coag (PPP) [Relative time]1.1 {INR} NormalSwedish Medical CenterComment on above:Performed By: #### PT #### [facility] [address] [place] [address] CK Coag (PPP) [Time]14.8 aMeuvol27.3-14.9Swed[facility] Medical CenterComment on above:Performed By: #### PT #### [facility] [address] [facility] [address] Tbkzmwf-INRon 20-48-4673IPD Coag (Bld) [Relative time]1.1 {INR}BON SECPROTESTANT HOSPITALPT Coag (PPP) [Time]14.8 sBON AVER[facility] GREGORY HEALTHCARE CENTERTYPE AND SCREENon 44-86-9201EWJ/RhNegativeBON REGENCY HOSPITAL TOLEDOComment on above:@06/24/22 14:01 by RUDY: BACK TYPE CONFIRMED IN TUBE. LMB Confirmation type needs to be drawn.[facility] HEALTHType and 3 cell Screen OB Captureon [id number] and 3 cell Screen OB CapturePATIENT: PINKY Prince LOC: GIFTYBILL# : [id number] : 1970 SEX: F ORDERED BY: GILMAR COX ORDERED : 06/24/2022 11:08 COLLECTED: 06/24/2022 11:45 ORDER : [id number] RECEIVED : 06/24/2022 11:45 Confirmation type needs to be drawn. TEST NAME RESULT UNITS RANGES ABN FL ST ABORH Capture A NEG F @06/24/22 14:01 by BODLY: BACK TYPE CONFIRMED IN TUBE. LMB Antibody 3 Cell Scrn Captu NEG F [facility] Hospital ColoradoComment on above:Performed By: #### TSO3C #### [facility] [address] [place] [address] Wxkbpdauij with Reflex to Cultureon 45-84-0973Hpobogirh Urine NegativeNegativeBON SECOURS MERCY HEALTHBlood, UrineNegativeNegativeBON SECOURS MERCY HEALTHClarity, UAClearClearBON SECOURS MERCY HEALTHColor, UAYellow Straw/YellowBON SECOURS MERCY HEALTHGlucose, UrNegativeNegative mg/dLBON SECOURS MERCY HEALTHKetones Ql (U)NegativeNegative mg/dLBON SECOURS MERCY HEALTH Leukocyte esterase Test strip Ql (U)TRACEAbnormalNegativeBON SECOURS MERCY HEALTHNitrite, UrineNegativeNegativeBON SECOURS MERCY HEALTHpH, UA7.05.0 - 9.0 [facility] HEALTHProtein (U) [Mass/Vol]30 mg/dLAbnormalNegativeBON SECOURS MERCY HEALTHSpecific [place], UA1.0101.005 - 1.030B[facility] MERCY HEALTHUrine Reflex to CultureNot IndicatedBON SECOURS MERCY HEALTHUrobilinogen, Urine0.2NINFBON SECOURS MERCY HEALTHUrinalysis, reflex to cultureon 06-24-2022 Urine Reflexed to CultureNot IndicatedNormGrand River HealthComment on above:Performed By: #### UAR #### [facility] [address] [place] [address] Cqflqylbn Ql (U)NegativeNoMercy Regional Medical Center Comment on above:Performed By: #### UAR #### [facility] [address] [place] [address] Govbnqa (U)ClearNormalClearSwedish Medical CenterComment on above:Performed By: #### UAR #### [facility] [address] [place] [address] Iobrn (U)YellowNormalStraw/YellSwedish Medical CenterComment on above:Performed By: #### UAR #### [facility] [address] [place] [address] Odjniif Ql (U)NegativeGreat Lakes Health System Comment on above:Performed By: #### UAR #### [facility] [address] [place] [address] Xoinzhapyi Ql (U)[facility] Comment on above:Performed By: #### UAR #### [facility] [address] [place] [address] Fdagwma Ql (U)[facility] Comment on above:Performed By: #### UAR #### [facility] [address] [place] [address] Ekozxhune esterase Test strip Ql (U)TRACEAbMohawk Valley General HospitalComment on above:Performed By: #### UAR #### [facility] [address] [place] [address] Wkonrrh Ql (U)[facility] Comment on above:Performed By: #### UAR #### [facility] [address] [place] [address] yR (U)7.0 [pH]Normal5.0-9.0Swed[facility] Medical CenterComment on above:Performed By: #### UAR #### [facility] [address] [place] [address] Eexrkwn Ql (U)30 mg/dLWeill Cornell Medical Center Comment on above:Performed By: #### UAR #### [facility] [address] [place] [address] Sbojhxmq gravity (U) [Rel density]1.267Nefvqq5.005-1.03Swedish Medical CenterComment on above:Performed By: #### UAR #### [facility] [address] [place] [address] Khhikldlzldb Qn (U)0.2 {Reji'U}/dLNormal< 2.0Swedish Medical CenterComment on above:Performed By: #### UAR #### [facility] [address] [place] [address] Hvsga Microscopicon 15-69-6449Fefef BacteriaFEWAbnormalNegativeSwedish Medical CenterComment on above:Performed By: #### UMIC #### [facility] [address] [place] [address] Fetlr Epithelial Cells Zrqg9-1Pkfsxj7-1Shfld[address] Comment on above:Performed By: #### UMIC #### [facility] [address] [place] [address] Tjxui Hyaline Casts Meax8-9Cygzjo3-9Thxre[address] [place] [address] Comment on above:Performed By: #### UMIC #### [facility] [address] [facility] [place] [address] Bcrzs RBC Aaat9-1Ktdgcv2-0Xqxac[address] [place], [place] [address]Comment on above:Performed By: #### UMIC #### [facility] [address] [facility] [address] Dxbjr WBC Uibc4-6Izfoms8-5Siyfb[address] [place], [place] [address]Comment on above:Performed By: #### UMIC #### [facility] [address] [facility] [address] KKUNFWYWG KNEE COMPLT, 4 OR MORE VIEWSon 64-81-6173JWAHRIKUB KNEE COMPLT, 4 OR MORE VIEWSMRN: [id number] Patient Name: GEETA SHELTON STUDY: BILATERAL KNEE; COMPLT, 4 OR MORE VIEWS; ; 05/18/2022 9:07 am INDICATION: pain M25.561: Acute pain of both knees M25.562:. ACCESSION NUMBER(S): [id number] ORDERING CLINICIAN: ACOSTA SCHAFER FINDINGS: Weightbearing four [...] bony abnormalities Electronically signed by: ACOSTA SCHAFER MDKensington HospitalInitial Visit (Orthopaedic Surgery)on 44-78-4702Ldjeldu Visit (Orthopaedic Surgery)Diagnoses/Problems Assessed Acute pain of both knees (338.19,719.46) [...] kneex-rays today please see dictated x-ray report Procedures [...] using voice recognition (more content not included)... NormalUH TouchworksRadiologyon 85-89-2361EP Knee 4 [facility]icsSum[facility] Work Phone: Albumin [Mass/volume] in Serum or PlasmaOrdered By: Elizabeth Alvarado on 49-53-5174Ijjsdny [Mass/Vol]3.9 g/dL3.2-5.5FShelby Memorial HospitalAlkaline phosphatase [Enzymatic activity/volume] in Serum or PlasmaOrdered By: Elizabeth Alvarado on 95-66-6650FFW [Catalytic activity/Vol]83 U/I26-85IvjyuqmnpSelect Medical Specialty Hospital - YoungstownAspartate aminotransferase [Enzymatic activity/volume] in Serum or PlasmaOrdered By: Elizabeth Alvarado on 38-03-7094FKY [Catalytic activity/Vol]56 U/L10-42 [facility] Hospital - YoungstownBasophils Auto (Bld) [#/Vol]Ordered By: Elizabeth Alvarado on 28-04-4426Oigzxfksq (Bld) [#/Vol]0.1 10*3/uL0.0-0.2 [facility] Hospital - YoungstownBasophils/100 WBC Auto (Bld)Ordered By: Elizabeth Alvarado on 99-36-0986Rfurnbsln/100 WBC (Bld)0.7 %.[facility] Hospital - YoungstownBilirubin.total [Mass/volume] in Serum or PlasmaOrdered By: Elizabeth Alvarado on 67-80-8058Ffsuitrll [Mass/Vol]0.6 mg/dL0.3-1.2FShelby Memorial HospitalCalcium [Mass/volume] in Serum or PlasmaOrdered By: Elizabeth Alvarado on 59-83-9962Mabxldy [Mass/Vol]9.1 mg/dL8.2-10.2FShelby Memorial HospitalCarbon dioxide, total [Moles/volume] in Serum or Plasma Ordered By: Elizabeth Alvarado on 68-44-8650RT7 [Moles/Vol]28.1 mmol/L22.0-30.0 [facility] - YoungstownChloride [Moles/volume] in Serum or Plasma Ordered By: Elizabeth Alvarado on 26-54-1023Wequzcpn [Moles/Vol]100 mmol/L 95-114[facility] Hospital - YoungstownCholesterol [Mass/volume] in Serum or PlasmaOrdered By: Elizabeth Alvarado on 64-80-9317Klytmiyagln [Mass/Vol]181 mg/hT165-757MnfuruvxeSelect Medical Specialty Hospital - YoungstownComment on above:Chol less than 200 mg/dl low riskChol 201-239 mg/dl borderline riskChol 240 mg/dl and greater high riskCholesterol in LDL Calc [Mass/Vol]Ordered By: Elizabeth Alvarado on 41-35-7803Gtzveffomne in LDL [Mass/Vol]102 mg/dL0-100[facility] Hospital - YoungstownComment on above:LDL ATP III CLASSIFICATIONLDL less than 100 mg/dL OptimalLDL 100-129 mg/dL Near or above okvhikkRRX157-482 mg/dL Borderline highLDL 160-189 mg/dL HighLDL greater than 189 mg/dL Very highCholesterol in VLDL Calc [Mass/Vol]Ordered By: Elizabeth Alvarado on 33-22-5606Lwrdxhqsjla in VLDL [Mass/Vol]20 mg/dLSelect Medical Specialty Hospital - YoungstownCreatinine and Glomerular filtration rate.predicted panel (S/P/Bld)Ordered By: Elizabeth Alvarado on 32-18-3060Fjydlhmnfh [Mass/Vol]0.65 mg/dL0.44-1.03[facility] Hospital - YoungstownEosinophils Auto (Bld) [#/Vol]Ordered By: Elizabeth Alvarado on 53-98-5069Rygvdnwitna (Bld) [#/Vol]0.1 10*3/uL0.0-0.45[facility] Hospital - YoungstownEosinophils/100 WBC Auto (Bld)Ordered By: Elizabeth Alvarado on 61-47-7504Ljiyepugfws/100 WBC (Bld)1.8 %.[facility] Hospital - YoungstownErythrocyte distribution width Auto (RBC) [Ratio]Ordered By: Elizabeth Alvarado on 60-86-3486Ubnkzeawzwv distribution width (RBC) [Ratio]17.8 % 11.9-15.3FShelby Memorial HospitalEstimated glomerular filtration rate (GFR) non- AmericanOrdered By: Elizabeth Alvarado on 85-16-3840YNI/1.73 sq M.predicted among non-blacks MDRD (S/P/Bld) [Vol rate/Area]> 60 mL/Min [facility] - YoungstownGlobulin Calc (S) [Mass/Vol]Ordered By: Elizabeth Alvarado on 69-38-2582Ktbcpehy (S) [Mass/Vol]3.7 g/dLSelect Medical Specialty Hospital - YoungstownGlucose [Mass/volume] in Serum or PlasmaOrdered By: Elizabeth Alvarado on 02-97-9533Ysvblia [Mass/Vol]137 mg/pK24-894VpphvkqlfSelect Medical Specialty Hospital - YoungstownComment on above:ADA recommended reference rangeRandom Glucose Reference Range is dependent on time and content of last meal. Glucose of more than 200 mg/dL in a nonstressed, ambulatory subject supports the diagnosisof Diabetes Mellitus.Hematocrit Auto (Bld) [Volume fraction]Ordered By: Elizabeth Alvarado on 70-93-3410Xhkrxdwtnl (Bld) [Volume fraction]45.4 % 34.0-46.4FShelby Memorial HospitalHemoglobin [Mass/volume] in Blood Ordered By: Elizabeth Alvarado on 61-36-8274Uccclikhat (Bld) [Mass/Vol]14.1 g/dL11.8-15.4FShelby Memorial HospitalLeukocytes [#/volume] corrected for nucleated erythrocytes in Blood by Automated counOrdered By: Elizabeth Alvarado on 36-02-3880CWL corrected for nucl RBC Auto (Bld) [#/Vol]7.9 10*3/uL 3.8-11.6FShelby Memorial HospitalLymphocytes Auto (Bld) [#/Vol]Ordered By: Elizabeth Alvarado on 14-81-1594Cknnxojtlxj (Bld) [#/Vol]2.4 10*3/uL 1.00-4.8[facility] Hospital - YoungstownLymphocytes/100 WBC Auto (Bld)Ordered By: Elizabeth Alvarado on 56-64-9716Zwwcjjhdoma/100 WBC (Bld)30.9 %.[facility] CenterH Auto (RBC) [Entitic mass]Ordered By: Elizabeth Alvarado on 90-47-1973OCX (RBC) [Entitic mass]24.6 pg24.7-34.3FShelby Memorial HospitalMCHC Auto (RBC) [Mass/Vol]Ordered By: Elizabeth Avlarado on 16-57-2592OBTE (RBC) [Mass/Vol]31.0 g/dL32.0-35.0[facility] - YoungstownMCV Auto (RBC) [Entitic vol]Ordered By: Elizabeth Alvarado on 05-07-2022 MCV (RBC) [Entitic vol]79.4 fM21-649GfhldbfptSelect Medical Specialty Hospital - YoungstownMonocytes Auto (Bld) [#/Vol]Ordered By: Elizabeth Alvarado on 45-61-1538Rlclxztus (Bld) [#/Vol]0.7 10*3/uL0.0-0.8[facility] Hospital - YoungstownMonocytes/100 WBC Auto (Bld)Ordered By: Elizabeth Alvarado on 13-41-6813Qzpipqgpl/100 WBC (Bld)9.3 %. [facility] Hospital - YoungstownNeutrophils Auto (Bld) [#/Vol]Ordered By: Elizabeth Alvarado on 13-29-9658Hviwyhbjcjq (Bld) [#/Vol]4.5 10*3/uL1.8-7.7 [facility] - YoungstownNeutrophils/100 WBC Auto (Bld)Ordered By: Elizabeth Alvarado on 07-94-4021Apsqacfgcaw/100 WBC (Bld)57.3 %.[facility] - YoungstownNo Panel InformationOrdered By: Elizabeth Alvarado on 56-91-9609Dtxlcfxwc GFR ()> 60 mL/MinSelect Medical Specialty Hospital - YoungstownComment on above:GFR estimated reference range: According to KDOQI guidelines, <60 ml/min/1.73m2 is sufficient todiagnose a patient with chronic kidney disease.Pharmacy Creatinine Clearance (ChemN/[facility] Mary HospitalNucleated erythrocytes [Presence] in Blood by Automated countOrdered By: Elizabeth Alvarado on 24-29-5933Emojsxbbo RBC Auto Ql (Bld)0.1 /100{WBC}0-0.5 [facility] Hospital - YoungstownPlatelet mean volume Auto (Bld) [Entitic vol] Ordered By: Elizabeth Alvarado on 43-38-9811Yyqvkrvt mean volume (Bld) [Entitic vol]9.4 fL6.3-10.7FShelby Memorial HospitalPlatelets Auto (Bld) [#/Vol] Ordered By: Elziabeth Alvarado on 36-53-9189Cltvhuaws (Bld) [#/Vol]242 10*3/uL 150-450[facility] - YoungstownPotassium [Moles/volume] in Serum or PlasmaOrdered By: Elizabeth Alvarado on 51-21-2394Mvmtuhtel [Moles/Vol]4.3 mmol/L3.5-5.1FShelby Memorial HospitalProtein [Mass/volume] in Serum or PlasmaOrdered By: Elizabeth Alvarado on 68-90-2881Rrtfyhi [Mass/Vol]7.6 g/dL 6.1-7.9[facility] Hospital - YoungstownRBC Auto (Bld) [#/Vol]Ordered By: Elizabeth Alvarado on 45-32-2202GTP (Bld) [#/Vol]5.72 10*6/uL3.60-5.00[facility] Hillcrest Hospitalerum or plasma alanine aminotransferase measurement without P-5'-P (enzymatic activiOrdered By: Elizabeth Alvarado on 44-43-4696QVN No additional P-5'-P [Catalytic activity/Vol]61 U/D78-44YvacxsfjcCleveland Clinic Hillcrest Hospitalerum or plasma albumin/globulin mass ratioOrdered By: Elizabeth Alvarado on 84-26-3266Verflwj/Globulin [Mass ratio]1.1 {ratio}[facility] Hospitalerum or plasma anion gap determinationOrdered By: Elizabeth Alvarado on 17-59-3352Udxgt gap [Moles/Vol]11.2 mmol/L6.0-15.0 [facility] Hospitalerum or plasma high density lipoprotein (HDL) cholesterol measurementOrdered By: Elizabeth Alvarado on 25-77-4065Tmfskilrump in HDL [Mass/Vol]58 mg/hC88-16PkknfeqglSelect Medical Specialty Hospital - YoungstownComment on above: HDL CHOL ATP-III CLASSIFICATION Cardiovascular RiskHDL > or equal to 60 mg/dL LOWHDL < 40 mg/dL HIGHSerum or plasma total cholesterol/high density lipoprotein (HDL) cholesterol mass ratOrdered By: Elizabeth Alvarado on 05-07-2022 Cholesterol.total/Cholesterol in HDL [Mass ratio]3.1 {ratio}<5.0[facility] Hospitalodium [Moles/volume] in Serum or PlasmaOrdered By: Elizabeth Alvarado on 93-21-9815Kdzito [Moles/Vol]135 mmol/E979-365WzmshesweSelect Medical Specialty Hospital - YoungstownTSH DL <= 0.005 mIU/L QnOrdered By: Elizabeth Alvarado on 19-91-4976YRB Qn4.21 m[IU]/L0.45-5.33[facility] Triglyceride [Mass/volume] in Serum or PlasmaOrdered By: Elizabeth Alvarado on 72-21-5287Aisybhmcjpsz [Mass/Vol]103 mg/bB94-609XzmuesadgSelect Medical Specialty Hospital - YoungstownComment on above:TRIG ATP III CLASSIFICATIONTRIG less than 150 mg/dL NormalTRIG 150-199 mg/dL Borderline highTRIG 200-500 mg/dL High TRIG greater than 500 mg/dL Very highStandard traceable to the Center for Disease Conrtrol and Prevention (CDC) test method.Urea nitrogen [Mass/volume] in Serum or Plasma Ordered By: Elizabeth Alvarado on 97-04-5827Ucrs nitrogen [Mass/Vol]14 mg/dL 9-23Select [facility] Hospital - YoungstownWBC Auto (Bld) [#/Vol]Ordered By: Elizabeth Alvarado on 26-14-4741FTI (Bld) [#/Vol]7.9 10*3/uL3.8-11.6FShelby Memorial HospitalBasophils Auto (Bld) [#/Vol]Ordered By: Tyler Villeda on 07-31-8414Fpxxetcug (Bld) [#/Vol]0.1 10*3/uL0.0-0.2FShelby Memorial HospitalBasophils/100 WBC Auto (Bld)Ordered By: Tyler Villeda on 04-13-2022 Basophils/100 WBC (Bld)0.6 %.[facility] Hospital - YoungstownC reactive protein [Mass/volume] in Serum or PlasmaOrdered By: Tyler Villeda on 01-06-0166LKO [Mass/Vol]2.1 mg/dL0.0-1.0[facility] - YoungstownEosinophils Auto (Bld) [#/Vol]Ordered By: Tyler Villeda on 13-52-6789Ueqqukjugft (Bld) [#/Vol]0.2 10*3/uL0.0-0.45[facility] Hospital - YoungstownEosinophils/100 WBC Auto (Bld) Ordered By: Tyler Villeda on 83-92-9623Ubbmfgbzvgu/100 WBC (Bld)2.0 %.[facility] Hospital - YoungstownErythrocyte distribution width Auto (RBC) [Ratio]Ordered By: Tyler Villeda on 03-37-4524Gjympymyfqg distribution width (RBC) [Ratio]17.6 %11.9-15.3FShelby Memorial HospitalErythrocyte sedimentation rate by Photometric methodOrdered By: Tyler Villeda on 73-65-2468IUJ Photometric method (Bld) [Velocity]54 mm/hr0-29[facility] - YoungstownHematocrit Auto (Bld) [Volume fraction]Ordered By: Tyler Villeda on 57-05-4988Nxakksxfsk (Bld) [Volume fraction]44.4 %34.0-46.4FShelby Memorial HospitalHemoglobin [Mass/volume] in BloodOrdered By: Tyler Villeda on 43-76-8393Wluxzoaljp (Bld) [Mass/Vol]14.3 g/dL11.8-15.4FShelby Memorial HospitalLeukocytes [#/volume] corrected for nucleated erythrocytes in Blood by Automated coun Ordered By: Tyler Villeda on 25-27-8225PKT corrected for nucl RBC Auto (Bld) [#/Vol]8.6 10*3/uL3.8-11.6FShelby Memorial HospitalLymphocytes Auto (Bld) [#/Vol]Ordered By: Tyler Villeda on 79-84-1705Hfnksgcxgcp (Bld) [#/Vol]2.9 10*3/uL1.00-4.8[facility] Hospital - YoungstownLymphocytes/100 WBC Auto (Bld) Ordered By: Tyler Villeda on 81-17-9398Phbsucqtdxi/100 WBC (Bld)33.6 %.[facility] Hospital - YoungstownMCH Auto (RBC) [Entitic mass]Ordered By: Tyler Villeda on 39-74-1633SBJ (RBC) [Entitic mass]24.9 pg24.7-34.3FShelby Memorial HospitalMCHC Auto (RBC) [Mass/Vol]Ordered By: Tyler Villeda on 98-72-3569DJIR (RBC) [Mass/Vol]32.2 g/dL32.0-35.0[facility] - YoungstownMCV Auto (RBC) [Entitic vol]Ordered By: Tyler Villeda on 83-96-0072GME (RBC) [Entitic vol]77.4 pL33-851OabwoozbaSelect Medical Specialty Hospital - YoungstownMonocytes Auto (Bld) [#/Vol] Ordered By: Tyler Villeda on 70-33-4005Pbqtgxpjs (Bld) [#/Vol]0.9 10*3/uL0.0-0.8 [facility] - YoungstownMonocytes/100 WBC Auto (Bld)Ordered By: Tyler Villeda on 95-09-2599Gwsksuges/100 WBC (Bld)10.0 %.[facility] Hospital - YoungstownNeutrophils Auto (Bld) [#/Vol]Ordered By: Tyler Villeda on 04-13-2022 Neutrophils (Bld) [#/Vol]4.6 10*3/uL1.8-7.7FShelby Memorial Hospital Neutrophils/100 WBC Auto (Bld)Ordered By: Tyler Villeda on 04-13-2022 Neutrophils/100 WBC (Bld)53.8 %.[facility] Hospital - YoungstownNucleated erythrocytes [Presence] in Blood by Automated countOrdered By: Tyler Villeda on 23-17-8180Ufoykrnbj RBC Auto Ql (Bld)0.1 /100{WBC}0-0.5FShelby Memorial HospitalPlatelet mean volume Auto (Bld) [Entitic vol]Ordered By: Tyler Villeda on 99-17-5306Pozblfvz mean volume (Bld) [Entitic vol]9.1 fL6.3-10.7 [facility] - YoungstownPlatelets Auto (Bld) [#/Vol]Ordered By: Tyler Villeda on 30-93-0497Miatkmdkb (Bld) [#/Vol]296 10*3/lW462-547YkkomhxtjSelect Medical Specialty Hospital - YoungstownRBC Auto (Bld) [#/Vol]Ordered By: Tyler Villeda on 16-70-4662ZDC (Bld) [#/Vol]5.73 10*6/uL3.60-5.00[facility] Hospital - YoungstownWBC Auto (Bld) [#/Vol]Ordered By: Tyler Villeda on 97-16-8301UXL (Bld) [#/Vol]8.6 10*3/uL 3.8-11.6FAdena Pike Medical Centererum or plasma follitropin measurement (units/volume)Ordered By: Elizabeth Alvarado on 83-53-8039Djbngsskfil Qn18.3 m[IU]/mLSelect Medical Specialty Hospital - YoungstownComment on above:FEMALE NORMALS (PREMENOPAUSE) MID-FOLLICULAR PHASE: 3.9-8.8 mIU/mL MID-CYCLE PEAK: 4.5-22.5 mIU/mL MID-LUTEAL PHASE: 1.8-5.1 mIU/mL FEMALE NORMALS (POSTMENOPAUSE): 16.7-113.6 mIU/mL MALE NORMALS: 1.3-19.3 mIU/mLNORTHWEST RURAL [facility] NETWORK DL <= 0.005 mIU/L QnOrdered By: Elizabeth Christiano on 90-52-6064MGI Qn4.23 m[IU]/L0.45-5.33[facility] - YoungstownTotal estrogen measurementOrdered By: Elizabeth Alvarado on 12-03-2021 Estrogen [Mass/Vol]83 pg/mL.[facility] - YoungstownComment on above: Prepubertal < 40 Female Cycle: 1-10 Days 16 - 328 11-20 Days 34 - 501 21-30 Days 48 - 350 Post-Menopausal 40 - 244 Performed at: - Lab[address] [id number] Global Category Manager: Virgie Isaac MD, Phone: [phone] Summary.on 01-26-2019 Coding Summary.CODING DATE: 01/26/2019 FINAL [facility] STATUS: Home (Routine DC) PAYOR: Medicare APC DESCRIPTION 5113 Level 3 Musculoskeletal Procedures ADMIT DX: REASON FOR VISIT DX: M76.61 Achilles tendinitis, right leg FINAL DX: PRINCIPAL: M76.61 Achilles tendinitis, right leg SECONDARY: M24.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, right ankle I10 Essential (primary) hypertension J45.909 Unspecified asthma, uncomplicated K21.9 Gastro-esophageal reflux disease without esophagitis Z79.899 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 However, the narrative phrase printed from the coding software may appear abbreviated, or result in slightly different terminology. Revised Coded By: Mary Bernard Revised Date Saved: 01/26/2019 11:32 amNormalSumma Health [facility]ron Campus Inpatient Patient Summaryon 57-96-4082Mwjsrnzsh [facility] SummaryK[facility] Discharge Instructions PERSON INFORMATION Name: GEETA SHELTON PHYSICIANS Admitting Physician: Thuan Travis DPM Attending Physician: Thuan Travis DPM PCP: Nichole Caballero Discharge Diagnosis: Comment: PATIENT EDUCATION INFORMATION Instructions: Post Op Patient Instructions - FT (Custom); Foot Cryocuff Patient Instructions - FT (Custom); Thaddeus- Post Operative Instructions (Revised 12/20/13) (Custom) ([id number]) Medication Leaflets: Follow up: MEDICATION LIST Comment:[facility] Rut[facility] HospitalLyteson 63-26-7137Ullvl gap [Moles/Vol] 14 mmol/LNormal6-16[facility] CampusComment on above:Performed By: #### [id number], [id number], [id number], [id number], 2526402, [id number] #### [facility] [address] [place], [place] [address]Wejhulye [Moles/Vol]107 mmol/QYywrvn930-300LmiyvhSumma Health Akron CampusComment on above:Performed By: #### [id number], [id number], 8505840, [id number], 2083350, [id number] #### [facility] [address] [place], [place] [address]OV7 [Moles/Vol]23 mmol/RIyobsn47-47UnshwdSumma Health Akron Campus Comment on above:Performed By: #### [id number], 8098149, 1494417, 11977363, [id number], 2015886 #### [facility] [address], [place] [address]Vcoplrmun [Moles/Vol]4.9 mmol/LNormal3.5-5.3FMetroHealth Parma Medical CenterComment on above:Performed By: #### [id number], 9554483, 5807551, 27607445, 7632623, 2496743 #### [facility] [address], [place] [address]Iowtrr [Moles/Vol]139 mmol/ZDtmjlr759-620LmawbkSumma Health Akron CampusComment on above:Performed By: #### [id number], 4813665, 2729438, [id number], 1974973, [id number] #### [facility] [address] [address]Gscr OR Intraoperative Recordon 66-42-4749Xlqn OR Intraoperative RecordIntraOp Document Type FT Summary Primary Physician: Thuan Travis DPM Finalized Date/Time: 01/24/19 11:33:24 Pt. Name: GEETA SHELTON/Sex: 1970 Female Med Rec #: [id number] Physician: Thuan Travis DPM Financial #: [id number] Pt. Type: A Room/Bed: Admit/Disch: 01/24/19 07:58:48 - Institution: Case Times FT Entry 1 Patient Times In Room 01/24/19 08:48:00 Out Room 01/24/19 09:26:00 Procedure Times Start 01/24/19 09:05:00 Stop 01/24/19 09:21:00 Anesthesia Times Start 01/24/19 08:48:00 Stop 01/24/19 09:26:00 Last Modified By: Maye Silverio CST 01/24/19 09:26:16 General Comments: TENEX CUTTING TIME: 01:23 - BIGG AGUILAR 01/24/19 Chart opened to review and send charges Suresh Silverio CST Case Attendance FT Entry 1 Entry 2 Entry 3 Case Attendee Thaddeus LACKEY, Bhavna Travis DPM, Thuan Stanley RN, CNOR, Cheryl Role Performed Anesthesiologist Surgeon - Primary COOK STARCH Design Engineer Time In 01/24/19 08:48:00 01/24/19 09:00:00 01/24/19 08:48:00 Time Out 01/24/19 09:26:00 01/24/19 09:22:00 01/24/19 09:26:00 Procedure PLANTAR/ACHILLES PLANTAR/ACHILLES PLANTAR/ACHILLES FASCIOTOMY TENEX(Right) FASCIOTOMY TENEX(Right) FASCIOTOMY TENEX(Right) Comments DR ALMANZAR SUPERVISING Last Modified By: Jani AGUILAR, Kallie Gunter RN, Kallie Gunter RNKallie 01/24/19 09:26:18 01/24/19 09:26:18 01/24/19 09:26:18 Entry 4 Entry 5 Entry 6 Case Attendee Jani AGUILAR, Kallie Yuen RN, Zuly Duarte CST, Prashant Panda Role Performed Drawer Liner - Primary Drawer Liner - Other Scrub - Primary Time In 01/24/19 08:48:00 01/24/19 08:48:00 01/24/19 08:48:00 Time Out 01/24/19 09:26:00 01/24/19 09:26:00 01/24/19 09:26:00 Procedure PLANTAR/ACHILLES PLANTAR/ACHILLES PLANTAR/ACHILLES FASCIOTOMY TENEX(Right) FASCIOTOMY TENEX(Right) FASCIOTOMY TENEX(Right) Comments ORIENTATION Last Modified By: Kallie Gunter RN, RN, Kallie Figueroa RN 01/24/19 09:26:18 01/24/19 [...] Veliz CST, Prashant Panda Time Out Complete 01/24/19 08:59:00 Outcomes Met? [...] Sharps Status Correct Correct Time By Lizeth RN, CNOR, Alpa AGUILAR, Zuly Luna, Gerald BIGHT MAKER, R, Gerald QUIROZ, Prashant Panda Outcomes Met? [...] to transfer/transport General Comments: REPORT GIVEN TO VB DEVELOPERAntonia PRIDE RN Dressing/Packing FT Pre-Care Text: Administers [...] safely administered during the perioperative period For [facility]Pastor please see scanned medication reconcilliation form for medications used at the field during the procedure. Temperature Control Entry 1 Temperature Control BLANKET MISTRAL AIR Quantity 1 Aid TORSO [PY3115-ED][F] Fluid/Simpson Unit Mistral warming system Setting HIGH/43 Body Site Upper anterior torso Last Modified By: Kallie Gunter RN 01/24/19 08:46:43 Case Comments Finalized By: Maye Silverio CST Document Signatures Signed By: Kallie Gunter RN 01/24/19 09:26 Maye Silverio CST 01/24/19 11:33[facility] I Recordon [id number] OR PACU I RecordPACU Phase I Document Type FT Summary Primary Physician: Thuan Travis DPM Finalized Date/Time: 01/24/19 10:08:45 Pt. Name: GEETA SHELTON/Sex: 1970 Female Med Rec #: [id number] Physician: Thuan Travis DPM Financial #: [id number] Pt. Type: A Room/Bed: [facility] [...] individualized perioperative plan of care The patient's rightto privacy is maintained The patient's value system, [...] with or improved from baseline levels established preoperativelyThe patient's cardiovascular status is consistent with or improved from baseline levels established preoperatively The patient's cardiovascular status is consistent with or improved from baseline levels established preoperatively The patient demonstrates and/or reports adequate pain control throughout the perioperative period The patient received appropriate medication(s), safely administered during the perioperativeperiod Acuity Level PACU I FT Entry 1 Start Time 01/24/19 09:27:00 Stop Time 01/24/19 10:00:00 Acuity Level Acuity Level I Last Modified By: Swathi Carr RN 01/24/19 10:08:39 Finalized By: Swathi Carr RN Document Signatures Signed By: Swathi Carr RN 01/24/19 10:08[facility] II Recordon [id number] OR PACU II RecordPACU Phase II Document Type FT Summary Primary Physician: Thuan Travis DPM Finalized Date/Time: 01/24/19 13:09:21 Pt. Name: GEETA SHELTON/Sex: 1970 Female Med Rec #: [id number] Physician: Thuan Travis DPM Financial #: [id number] Pt. Type: A Room/Bed: [place] [address] Admit/Disch: 01/24/19 07:58:48 - Institution: Case Times [...] and monitors body temperature Evaluates postoperative respiratory statusEvaluates postoperative cardiac status Evaluates postoperative neurological status Assesses pain control, collaborated in initiating patient-controlled analgesia and implements alternative methods of pain control Verifiesallergies, administers prescribed medications and solutions, evaluates response to medications Entry 1 In PACU II 01/24/19 10:05:00 Discharge from PACU 01/24/19 11:30:00 II Outcomes Met? Yes Last Modified By: Keeley Putnam LPN 01/24/19 13:09:14 Post-Care Text: The patient demonstrates knowledge of the expected response to the operative or invasive procedure The patient's care is consistent with the individualized perioperative plan of care The patient's rightto privacy is maintained The patient's value system, [...] with or improved from baseline levels established preoperativelyThe patient's cardiovascular status is consistent with or improved from baseline levels established preoperatively The patient's neurological status is consistent with or improved from baseline levels established preoperatively The patient demonstrates and/or reports adequate pain control throughout the perioperative period The patient received appropriate medication(s), safely administered during the perioperativeperiod Finalized By: Keeley Putnam LPN Document Signatures Signed By: Keeley Putnam LPN 01/24/19 13:09[facility]Main [facility] Preoperative Recordon [id number] OR Preoperative RecordPreOp Document Type FT Summary Primary Physician: Thuan Travis DPM Finalized Date/Time: 01/24/19 09:12:07 Pt. Name: GEETA SHELTON/Sex: 1970 Female Med Rec #: [id number] Physician: Thuan Travis DPM Financial #: [id number] Pt. Type: A Room/Bed: Admit/Disch: 01/24/19 07:58:48 [...] Signatures Signed By: Kallie Gunter RN 01/24/19 09:12[facility] HospitalOperative Report on 79-11-1528Tbydjdswo ReportDate of Surgery: 01/24/2019 SURGEON: Thuan Travis D.P.M. [...] first postoperative visit. Sania Pantoja Dictated: 01/24/2019 #[id number] Typed: 01/24/2019 #[id number] cc: Thuan Travis D.P.M.[facility] HospitalComment on above: Result Comment: Electronically Signed By: Thuan Travis DPM\.br\Date and Time Signed: 01/24/19 10:24 EDTPatient Education - Texton 49-68-6880Dopaale Education - Text [place], [place] Thuan Travis DPM, FACFAS POST OPERATIVE [...] feel free to call the doctor at: [phone] or [phone] Travis paged. Patient signature Date Dr. Anand Sauer DPM, FACFAS Date Revised: 06-02NoAvita Health System Ontario HospitalProgress Note-Physicianon 31-56-3820Fcpqlsoq Note-PhysicianPatient: GEETA SHELTON Age: 48 years Sex: Female : 1970 Associated Diagnoses: None Author: Thuan Travis DPM Postoperative Information Procedure: right percutaneous achilles tenotomy with tenex under general anesthesia, US guided Date/ Time: 01/24/19 09:26:00 Preoperative Diagnosis: contracture and ankle right with achilles tendonitis. Postoperative Diagnosis: sanjana. Performed by: Thuan Travis DPM Estimated Blood Loss: 1 ml. Complications: None. Anesthesia type: General.[facility] HospitalComment on above: Result Comment: Electronically Signed By: Thuan Travis DPM\.br\Date and Time Signed: 01/24/19 09:27 EDTCoding Summary.on 88-95-3449Dkjigu Summary.CODING DATE: 01/12/2019 FINAL [facility] STATUS: Home (Routine DC) [...] China Olivarez CphT Date Saved: 01/12/2019 11:10 amNormalSumma Health Akron CampusBUNon 01-11-2019 Urea nitrogen [Mass/Vol]29 mg/dLRockefeller Neuro[facility] [place], [place] [address]Comment on above:Performed By: #### 4173854, 3259383, 1332875, 69145403, 2674070, 9088834 #### [facility] [address], [place] [address]NGL w/Indiceson 29-80-9109Ibvyywgrxul distribution width (RBC) [Ratio]16.1 %High10.9-14.2FMetroHealth Parma Medical CenterComment on above:Performed By: #### 61121425, 6007845, 9192981, 6401286, 5827158 #### [facility] [address], [place] [address]Wrxserxxki (Bld) [Volume fraction]42.1 %Ougshe33.0-46.0[facility] CampusComment on above:Performed By: #### 51778729, 0102694, 0058673, 8551501, 2782027 #### [facility] [address] [place] [address]Nyzhprritu (Bld) [Mass/Vol]13.8 g/wQXmuoof16.0-16.0[facility] CampusComment on above:Performed By: #### 76223438, 5593499, 9945175, 0693617, 4740027 #### [facility] [address] [place] [address] 11216JDC (RBC) [Entitic mass]25.8 pgLow27.0-34.0[facility] CampusComment on above:Performed By: #### [id number], 7477150, 8035305, 6080477, 2383336 #### [facility] [address] [place] [address] 21660JMYL (RBC) [Mass/Vol]32.8 g/dLLow33.3-35.7FMetroHealth Parma Medical CenterComment on above:Performed By: #### 29548905, 5581338, 3824738, 4407418, 9443029 #### [facility] [address] [place] [address] 46166NKR (RBC) [Entitic vol]78.5 fLLow80.0-100.0[facility] CampusComment on above:Performed By: #### [id number], 7480225, 5988972, 7801185, 7862597 #### [facility] [address] [place] [address]Bbkgkfsh mean volume (Bld) [Entitic vol]9.9 fLNormal6.4-10.8 [facility] CampusComment on above:Performed By: #### 32029841, 1653194, 1380774, 6053665, 6268564 #### [facility] [address], [place] [address]Hlhtguaze (Bld) [#/Vol]283.0 E9/XMdzbnn564.0-500.0[facility] CampusComment on above:Performed By: #### 53993773, 1100263, 7206321, 8768534, 9202101 #### [facility] [address] [place] [address] 000[address]HJG (Bld) [#/Vol]5.4 E12/LNormal4.3-5.9[facility] CampusComment on above:Performed By: #### 96101095, 7593631, 5648693, 7251191, 4923072 #### [facility] [address] [place] [address] 60938SDK corrected for nucl RBC Auto (Bld) [#/Vol]8.6 E9/LNormal 4.0-11.0[facility] CampusComment on above:Performed By: #### 42219553, 6382220, 3377863, 0151408, 3336523 #### [facility] [address] [place] [address]Mnntcpbjatva 00-53-2292Ewdtxadpef [Mass/Vol]1.0 mg/dLNormal 0.5-1.3FMetroHealth Parma Medical CenterComment on above:Performed By: #### 6457078, 3392949, 6117516, 04818064, 3154221, 6165298 #### [facility] [address] [place] [address] 12984Ingwffeba 87-63-3789Ffudjmh [Mass/Vol]95 mg/rZSleeyd93-182 [facility] CampusComment on above:Performed By: #### 79253265, 4567681, 4452838, 3482357, 0412018 #### [facility] [address], [place] [address]nRGQtc 21-18-1401RQH/1.73 sq M predicted among blacks MDRD (S/P/Bld) [Vol rate/Area]mL/min/{1.73_m2}Normal>=59[facility] Comment on above:Order Comment: Order added by Discern Expert.Result Comment: eGFR is race adjusted. AA=.Performed By: #### 3493909, 1480408, 4090484, 43191160, 5287498, 6552195 #### [facility] [address], [place] [address]XEL/1.73 sq M predicted among non-blacks MDRD (S/P/Bld) [Vol rate/Area]59 mL/min/1.73 s3Urjnpz>=59Sum[facility] CampusComment on above:Order Comment: Order added by Discern Expert.Result Comment: Chronic kidney disease could be indicated at eGFR's of less than 60 mL/min/1.73m2. K idney failure is indicated at less than 15 mL/min/1.73m2.Performed By: #### 0472292, 6397259, 8888212, 50141125, 2003290, 6217729 #### [facility] [address], [place] [address]Hlfhxr Summary.on 27-21-1671Pjxums Summary.CODING DATE: 12/15/2018 FINAL [facility] STATUS: Home (Routine DC) [...] China Olivarez CphT Date Saved: 12/15/2018 01:36 pmNormalSumma Health Akron CampusBUNon 12-14-2018 Urea nitrogen [Mass/Vol]19 mg/dLNormal5-21[facility] CampusComment on above:Performed By: #### 8341164, 9492835, 7684080, 31097944, 9025845, 7083234 #### [facility] [address], [place] [address]RCS w/Indiceson 67-31-4786Aeyzzrurnuq distribution width (RBC) [Ratio]17.1 %High10.9-14.2FMetroHealth Parma Medical CenterComment on above:Performed By: #### 2944278, 0690425, 5252441, 23058638, 1216136, 7081367 #### [facility] [address], [place] [address]Kzyrtrvoit (Bld) [Volume fraction]41.5 %Ljuocs40.0-46.0[facility] CampusComment on above:Performed By: #### 8064859, 1380903, 1084120, 66797116, 1175966, 8321053 #### [facility] [address], [place] [address]Clppvwdead (Bld) [Mass/Vol]13.2 g/eECqgner79.0-16.0[facility] CampusComment on above:Performed By: #### 7997866, 9862146, 8338610, 41461558, 6240284, 0362829 #### [facility] [address], [place] [address]LZL (RBC) [Entitic mass]25.0 pgLow27.0-34.0[facility] CampusComment on above:Performed By: #### 0448257, 0632195, 5893546, 97978859, 5180866, 4621577 #### [facility] [address], [place] [address]HEDC (RBC) [Mass/Vol]31.7 g/dLLow33.3-35.7FMetroHealth Parma Medical CenterComment on above:Performed By: #### 5687828, 7039526, 7016163, 02912671, 0891996, 1918843 #### [facility] [address] [place] [address]MNT (RBC) [Entitic vol]78.7 fLLow80.0-100.0[facility] CampusComment on above:Performed By: #### 3347157, 8392789, 0028144, 98927476, 1807465, 3994367 #### [facility] [address] [place] [address]Swjebhiu mean volume (Bld) [Entitic vol]9.4 fLNormal6.4-10.8 [facility] CampusComment on above:Performed By: #### 9015338, 6212734, 3931944, 02726111, 3841232, 2388041 #### [facility] [address] [place] [address]Hyxxijmql (Bld) [#/Vol]268.0 E9/UXqljay022.0-500.0[facility] CampusComment on above:Performed By: #### 8241240, 2035420, 3281782, 87429446, 3672392, 4150336 #### [facility] [address] [place] [address] 18460SFE (Bld) [#/Vol]5.3 E12/LNormal4.3-5.9[facility] CampusComment on above:Performed By: #### 0273212, 1621808, 8935276, 35485168, 6370654, 8416207 #### [facility] [address] [place] [address] 234[address]XZU corrected for nucl RBC Auto (Bld) [#/Vol]10.6 E9/LNormal 4.0-11.0[facility] CampusComment on above:Performed By: #### 0980148, 9710514, 3423313, 37646512, 7513174, 2124207 #### [facility] [address] [place] [address]Jcnhbuviggxo 53-89-0794Iarswroeff [Mass/Vol]0.7 mg/dLNormal 0.5-1.3FMetroHealth Parma Medical CenterComment on above:Performed By: #### 3198281, 8124954, 5390478, 47151344, 3114269, 6867317 #### [facility] [address], [place] [address]Mmqlnezny 97-83-1381Btpqwxd [Mass/Vol]138 mg/vTMopkqk85-586 [facility] CampusComment on above:Performed By: #### 8804634, 1648595, 4467296, 00643464, 3013901, 6314267 #### [facility] [address], [place] [address]Ucrqdzd 03-69-7618Ecakt gap [Moles/Vol]17 mmol/LHigh6-16[facility] CampusComment on above:Performed By: #### 6765713, 7857235, 3077866, 18290884, 3174111, 4014458 #### [facility] [address], [place] [address]Fwoxldur [Moles/Vol]95 mmol/HYed183-391YkigsbSumma Health Akron CampusComment on above:Performed By: #### 8678226, 5442385, 1398411, 30025664, 8309971, 4345231 #### [facility] [address] [place] [address]TQ9 [Moles/Vol]26 mmol/EAfadlh88-82WypllfSumma Health Akron Campus Comment on above:Performed By: #### 8908733, 1703491, 4575764, 36076731, 6256000, 1916237 #### [facility] [address], [place] [address]Qomqhbedj [Moles/Vol]3.9 mmol/LNormal3.5-5.3FMetroHealth Parma Medical CenterComment on above:Performed By: #### 9524881, 3411495, 3601353, 04356047, 9625503, 6322108 #### [facility] [address], [place] [address]Dtrhyo [Moles/Vol]134 mmol/GEhm619-519NdxqxbSumma Health Akron CampusComment on above:Performed By: #### 1768151, 2815607, 7484059, 97892037, 4820150, 0314788 #### [facility] [address], [place] [address]GP Chest 2 Viewson 44-32-4889GN Chest 2 ViewsExam Date/Time: 12/14/2018 15:25 EDT Reason for Exam: [...] Lyric Green MD Transcribed by: MAGEN Technologist: HERVEFort Hamilton HospitaleGFRon 45-81-4135FEA/1.73 sq M predicted among blacks MDRD (S/P/Bld) [Vol rate/Area] mL/min/{1.73_m2}Normal>=59[facility] CampusComment on above:Order Comment: Order added by Discern Expert.Result Comment: eGFR is race adjusted. AA=.Performed By: #### 1819596, 2151561, 7123382, 83265095, 7897461, 4134177 #### [facility] [address], [place] [address]UFP/1.73 sq M predicted among non-blacks MDRD (S/P/Bld) [Vol rate/Area]mL/min/{1.73_m2}Normal>=59[facility] CampusComment on above: Order Comment: Order added by Discern Expert.Result Comment: Chronic kidney disease could be indicated at eGFR's of less than 60 mL/min/1.73m2. Kidney failure is indicated at less than 15 mL/min/1.73m2.Performed By: #### 2363561, 0472427, 3205253, 30912219, 0667094, 0088006 #### [facility] [address] [place] [address] Vital Signs Date TimeVital SignValuePerforming MiaerydewQdmksjdb53-01-7475 09:36-0400Body ocsvne244.1 cmPHYSICIAN [facility]06[facility]20[facility] 09:36-0400Body mass index (BMI) [Ratio]46.2 kg/m4MJSQAXWVW [facility]06-07-2024 09:36-0400Body ezqvyzbvasb61.6 [degF]PHYSICIAN [facility]06-07-2024 09:36-0400Body weight 126.09 kgPHYSICIAN [facility]06-07-2024 09:36-0400Diastolic blood mm[Hg]PHYSICIAN [facility]06-07-2024 09:36-0400Heart rate87 /minPHYSICIAN [facility]06-07-2024 09:36-0400Respiratory rate20 /min PHYSICIAN [facility]06-07-2024 09:36-6400IaV5% (BldA) [Mass fraction]98 %PHYSICIAN [facility] 09-30-2023 09:36-0400Systolic blood pvycemex375 mm[Hg]PHYSICIAN [facility]11-08-2023 10:45-0500Body bqkiow479.1 cmMajono Jean Other [facility] Other [id number] 10:45-0500Body mass index (BMI) [Ratio] 44.76 kg/g4BvvbjelTyler Jean Other [facility] Other 11-08-2023 10:45-0500Body xugiomsnvbz72.7 [degF] Tyler Jean Other [place] [employer] Other 11-08-2023 10:45-0500Body sfnyws663.02 kgTyler Jean Other [place] [employer] Other 11-08-2023 10:45-0500Diastolic blood gakdboqy26 mm[Hg] Tyler Ted Other [place] [employer] Other 11-08-2023 10:45-0500Respiratory rate18 /minMattcyndie Ted Other [place] [employer] Other 11-08-2023 10:45-5728ZtD9% (BldA) [Mass fraction]96 % Tyler Jean Other [place] [employer] Other 11-08-2023 10:45-0500Systolic blood nmtucggj016 mm[Hg] Tyler Ted Other [place] [employer] Other 05-30-2023 09:11-0400Body ztzxfu096.72 kgAPRNohelia Alvarado Work Phone: [facility]05-30-2023 09:11-0400 Diastolic blood itwjbecy80 mm[Hg]COMPOUNDING TECHNICIAN Elizabeth Alvarado Work Phone: [facility]05-30-2023 09:11-0400 Heart rate88 /minAPRN Elizabeth Myerholtz Work Phone: [facility]05-30-2023 09:11-0400 Respiratory rate20 /minAPRN Elizabeth Myerholtz Work Phone: [facility]05-30-2023 09:11-0400 SaO2% (BldA) [Mass fraction]96 %COMPOUNDING TECHNICIAN Elizabeth Myersaige Work Phone: [facility]05-30-2023 09:11-0400 Systolic blood xtaaymub871 mm[Hg]RHEA Alvarado Work Phone: [facility]04-24-2023 13:57-0400 Body lmdoosrachu68 [degF]RHEA Alvarado Work Phone: [facility]04-24-2023 13:42-0400 Body povgor270.1 cmAPRNohelia Alvarado Work Phone: [facility]03-11-2023 08:14-0500 Body nmedfupayws39.9 [degF]Acosta Schafer MD Work Phone: [employer] [facility]ENTERFlats&HousesZNYSZA17-93-2544 08:14-0500Diastolic blood yzzpjgtk10 mm[Hg]Acosta Schafer MD Work Phone: [employer] [facility]ENTERFlats&HousesJJVVMK16-99-5837 08:14-0500Heart rate83 /Sophia Schafer MD Work Phone: [employer] [facility]ENTERFlats&HousesFJRAPF08-80-2763 08:14-0500 Respiratory rate18 /Sophia Schafer MD Work Phone: [employer] [facility]ENTERFlats&HousesXCAZHV07-06-1207 08:14-9799AlY5% (BldA) [Mass fraction]98 %Acosta Schafer MD Work Phone: [employer] [facility]ENTERFlats&HousesTLJIGM59-04-9775 08:14-0500Systolic blood egeahijl196 mm[Hg]Acosta Schafer MD Work Phone: [facility]03-10-2023 09:45-0500Body mass index (BMI) [Ratio]50.66 kg/d5JewstyjAcosta Schafer MD Work Phone: [facility]03-10-2023 09:45-0500Body gnsars529.73 kgAcosta Schafer MD Work Phone: [facility]03-02-2023 11:20-0500Body vahitn822 cmMloz [facility]nB[facility]03-02-2023 11:20-0500Body mass index (BMI) [Ratio]50.79 kg/m2oz [facility]nB[facility]03-02-2023 11:20-0500Body cozyfahtmsr54.9 [degF][facility]03-02-2023 11:20-0500Body fyzzjl970.05 kgMloz Rn[facility]03-02-2023 11:20-0500Diastolic blood jimhfpwx81 mm[Hg]oz RnB[facility]03-02-2023 11:20-0500Heart rate73 /minMloz Rn[facility]03-02-2023 11:20-0500Respiratory rate 16 /minMloz Rn[facility]03-02-2023 11:20-3552GkV0% (BldA) [Mass fraction]98 %[facility]03-02-2023 11:20-0500Systolic blood dkfhizud056 mm[Hg][facility] RnB[facility]01-24-2023 08:46-0500Body mfuklb177.1 cmAcosta Schafer MD Work Phone: mp075-6100OJ-KfpbzwJackson [facility] Work Phone: 1(430) 137-183401-24-2023 08:46-0500Body mass index (BMI) [Ratio] 45.93 kg/p8DipnsldAcosta Schafer MD Work Phone: mp271-8590VG-GtcebfJackson County [facility] Work Phone: 1(827) 975-519201-24-2023 08:46-0500Body surface area Derived from formula2.27 p6JhourobAcosta Schafer MD Work Phone: mp153-7051RG-PakmzmJackson [facility] Work Phone: 1(397) 721-666601-24-2023 08:46-0500Body .19 kgAcosta Schafer MD Work Phone: [phone]-UwpurbJackson County [facility] Work Phone: Encounters Encounter DateEncounter TypeCare ProviderFacilityStart: 09-30-2023 End: 72-54-6618kadprtcxlfEUPBPYTEN NO [facility] Work Phone: Start: 09-30-2023 End: 81-12-6270Ardztcr encounter procedurePHYSICIAN NO [facility] Work Phone: Start: 41-11-5715Uldprxxezu RecurringPHYSICIAN NO [facility] Acute Work Phone: Start: 38-32-2399hnsowuijtoKnrsptilu K Myerholtz [facility]tart: 09-07-2023 End: 46-85-2952Mpfollk encounter procedurePHYSICIAN [facility] [place] Work Phone: Start: 08-24-2023 End: 63-54-2093kgfjxxewdpLAEC Katherine Myerholtz Work Phone: [facility] Work Phone: Start: 08-24-2023 End: 22-99-5190Gqenyey encounter procedureRHEA Alvarado Work Phone: [facility]: 08-24-2023 End: 75-95-2219Hrwaxksp ReferredRHEA Alvarado Work Phone: [facility] HospitalStart: 05-10-2023 End: 65-26-3244eyxdjwvjdsLDOIRHEA Alvarado Work Phone: [facility] Work Phone: Start: 05-10-2023 End: 88-14-5987Jqjarul encounter procedureRHEA Alvarado Work Phone: [facility] Work Phone: Start: 03-02-2023 End: 25-74-8465yichwqaytuPxaykmg [place] Other [employer] [place] [employer] Other Start: 35-26-8133Wsvfqi outpatient visit 25 minutes Tyler JeanLUIS Vascular SurgeryStart: 02-14-2023 End: 69-98-1325mnspwohmeaZGAWRHEA Alvarado Work Phone: [facility] Work Phone: Start: 02-14-2023 End: 88-16-9888Jinxftf encounter procedureRHEA Alvarado Work Phone: [facility] [place] Work Phone: Start: 61-20-7943WMTT visit mily Kristie Estesjoanne [facility] Vascular SurgeryStart: 01-26-2023 End: 28-54-0473xphraalbrgVSPKRHEA Alvarado Work Phone: [place] [employer] Other Start: 01-26-2023 End: 20-98-9086Shhiqqa encounter procedureRHEA Alvarado Work Phone: [facility]-XRay [facility] [place] Work Phone: Start: 49-36-7675Dxzjujj encounter procedureAcosta Schafer MD Work Phone: [phone]-Gyiali For OrthopedicsSum[facility] Health [facility] Campus Work Phone: Start: 31-00-0319frgukhlqtxCteavdht Pending Facility:[id number]: 11-25-2022 End: 72-45-8474Xlteoqb encounter procedureRHEA Alvarado Work Phone: [facility]-Respiratory Therapy Work Phone: Start: 21-97-7288Itmnsua encounter procedureAcosta Schafer MD Work Phone: [phone]-Vltnvn For OrthopedicsSumma Health [facility] Campus Work Phone: Start: 33-72-8244rbvxqqnevfAtpueotd Pending Facility:[id number]: 09-21-2022 End: 48-53-6746slaulvpgtpGPJM Katherine K Mymicheleholpaula Work Phone: [facility] Work Phone: Start: 09-21-2022 End: 69-02-8623Ysftmgvrjb RecurringAPRN Elizabeth Alvarado Work Phone: [facility]-Cancer Center Work Phone: Start: 97-08-4125mpyxqgtgprAf. Acosta SchaferFacility:[id number]: 08-04-2022 End: 57-90-3111Kqkdtmyayi RecurringAPRN Elizabeth Alvarado Work Phone: [facility]-Physical Therapy [address]Start: 07-23-2022 End: 33-66-5563wziroedkxpQVJA Katherine K Mymicheleholpaula Work Phone: [facility] Work Phone: Start: 07-23-2022 End: 59-68-1129Vosimhq encounter procedureAPRNohelia Alvarado Work Phone: [facility]-Lab [place] Work Phone: Start: 50-43-0753Squqwnjkw encounterAcosta Schafer MD Work Phone: [phone]-Huwffp For [facility] Work Phone: Start: 02-06-7914Sgxcmbo encounter procedureAcosta Schafer MD Work Phone: [phone]-Jatzyu [facility] Work Phone: Start: 62-65-0587tronqzzvvmHhAntonia SchaferFacility:34336Jdxca: 95-81-0998JYJFHZklzpbz Stanfield MD Work Phone: [phone]-GhokxlJackson [facility] Work Phone: Start: 02-44-4065eqxcrtnuyaJusrzvtl Pending Facility:[id number]: 07-01-2022 End: 24-00-8357Mfzyrkhphg and management of inpatientWILLIAM B [facility] Centertart: 75-09-0063VBXLYMEJP, Provider: Acosta Schafer, Status: Pen, Time: 7:00 AMMojames Tyson PT, DPT Work Phone: [facility] Work Phone: Start: 07-01-2022 End: 99-17-1673Bnygzvjkmc and management of inpatientWilliam Elaina Gilmar CAN Work Phone: [facility] Ortho TeleComment on above: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 Merrill Alejandro Facility:[id number]: 67-47-8738Sjywimvgj for other preprocedural examinationMr. Merrillnura Hernandez [facility] CenterStart: 06-24-2022 End: 74-90-2288dbcujblufgEQIAGAM B [facility] Centertart: 06-24-2022 End: 22-94-8667Gebotgzene hospital visit by physicianJuan Manzano 2 RnMercy Pre- Admission TestingStart: 62-84-6126Xdjelnw encounter procedureAcosta Schafer MD Work Phone: [phone]-Kfqdld [facility] Work Phone: Start: 28-66-4672kqhdjqvrqkCx. Acosta Brownity:51950Mjzey: 05-07-2022 End: 60-06-5198Lqcranm encounter procedureAPRNohelia Alvarado Work Phone: [facility] Work Phone: Start: 04-13-2022 End: 18-11-8589qtucnhhapvLQKT Elizabeth Alvarado Work Phone: [facility] Work Phone: Start: 04-13-2022 End: 42-39-4950Lfngcvc encounter procedureAPRNohelia Alvarado Work Phone: [facility]Lab Main CampusStart: 12-17-2021 End: 07-34-2415Iljsrcg encounter procedureAPRNohelia Alvarado Work Phone: [facility]-Nuc Med [facility] [place] Start: 12-07-2021 End: 79-77-4003Tpmrtft encounter procedureAPRNohelia Alvarado Work Phone: [facility]-Ultrasound [facility] [place] Start: 12-03-2021 End: 53-57-2062Lzwafvoh ReferredAPRNohelia Alvarado Work Phone: [facility] Procedures DateProcedureProcedure DetailPerforming ClinicianStart: 42-02-8943Czvzdj echographyPHYSICIAN NO FAMILYStart: 79-28-6098Flzghxesqxvp echographyPHYSICIAN NO FAMILYStart: 75-44-5564Kqxxjztah mammography of bilateral breastsAPRNohelia Alvarado Work Phone: Start: 63-39-6158Qbhnft scan of lower limb veinsAPRNohelia Alvarado Work Phone: Start: 95-95-9556Mjmcq chest X-rayAPRNohelia Alvarado Work Phone: Start: 64-12-2221LTRSO METABOLIC PANEL W/ REFLEX TO MG FOR LOW Kevyn Harry Born COMPOUNDING TECHNICIAN - [facility] Work Phone: Start: 57-56-1536Udoic count complete automatedAdjyoan Coronado COMPOUNDING TECHNICIAN - [facility] Work Phone: Start: 61-86-0780Cgc-scan xtr veins unilateral/limited studyCole D Sedar DO Work Phone: Start: 73-63-4147TKELC METABOLIC PANEL W/ REFLEX TO MG FOR LOW Kevyn Coronado COMPOUNDING TECHNICIAN - [facility] Work Phone: Start: 06-83-1073Upjfs count complete automatedAdjyoan Coronado [facility] Work Phone: Start: 16-27-7708Fupeuwmsxv examination knee 1/2 views Adjyoan Coronado [facility] Work Phone: Start: 07-01-2022 End: 61-78-8477Bipu total knee arthrp w/wo algrft 1 componentAcosta Schafer MD Work Phone: Start: 84-90-7562Hartnxqp screenMloz RnStart: 23-68-6757Tqzpj dip stick/tablet rgnt auto w/o microscopyAcosta Schafer MD Work Phone: Start: 17-35-1667Awlrb typing serologic aboAcosta Schafer MD Work Phone: Start: 06-24-2022 End: 98-32-2051Akgqaibvtfjsy metabolic panelAcosta Schafer MD Work Phone: Start: 06-24-2022 End: 75-01-3512Rjfzt s aureus methicillin resist amp probe tqAcosta Schafer MD Work Phone: Start: 41-67-6921Suv routine ecg w/least 12 lds trcg only w/o i&rWilliam Elaina Schafer MD Work Phone: Start: 66-06-5980Tgcokzkoaubo three-phase bone study COMPOUNDING TECHNICIAN Elizabeth Morinbijupaula Work Phone: Start: 72-54-2961EM scan of thyroidAPRNohelia Alvarado Work Phone: Start: 24-64-0016Cerkxrknge consultationStart: 26-20-7956Nsvyouewko consultation Plan of Treatment DateCare ActivityDetailAuthorStart: 41-48-0906RHQ, Provider: Acosta Schafer, Status: Pen, Time: 2:15 PMFUV, Provider: Acosta Schafer, Status: Pen, Time: 2:15 PMMP-[facility] Work Phone: Start: 99-62-9896Hufxinbow for malignant neoplasm of colonSENTARA NORFOLK GENERAL HOSPITALStart: 78-88-0784IPV, Provider: Acosta Schafer, Status: Pen, Time: 1:45 PMFUV, Provider: Acosta Schafer, Status: Pen, Time: 1:45 PMMP-[facility] Work Phone: Start: 70-75-8454NXN, Provider: Acosta Schafer, Status: Pen, Time: 9:45 AMFUV, Provider: Acosta Schafer, Status: Pen, Time: 9:45 AM-[facility] Work Phone: Start: 60-40-1071KsorefrurSelect Medical Specialty Hospital [facility] Start: 23-99-8942VCL, Provider: Acosta Schafer, Status: Pen, Time: 9:00 AM POV, Provider: Acosta Schafer, Status: Pen, Time: 9:00 AM-[facility] Work Phone: Start: 07-01-2022 End: 52-67-3290Byeevyrgu to same day surgery hcezab3107/01/2022 Surgery IP Unit Acosta Schafer MD [address] [place] [address] RIGHT KNEE RIGHT TOTAL KNEE REVISION INSTRUMENTATIONSTRYKER FEMORAL & SCIATIC BLOCKMLOZ ORComment on above:RIGHT KNEE RIGHT TOTAL KNEE REVISION INSTRUMENTATION ANTONELLA FEMORAL & SCIATIC BLOCKStart: 07-01-2022 End: 96-27-3640Uzbq total knee arthrp w/wo algrft 1 componentKNEE TOTAL ARTHROPLASTY REVISION Loosening of unicondylar knee replacement (HCC) 07/01/2022 10:50 AM [facility]art: 86-62-9386Uozamhpdoc hospital visit by vnaokavlz30/09/2023 Hospital Encounter IP Unit Acosta Schafer MD [address] [place] [address] MLOZ ORStart: 15-63-3842YQVFNBLZY, Provider: Acosta Schafer, Status: Pen, Time: 7:00 [facility], Provider: Acosta Schafer, Status: Pen, Time: 7:00 [facility] Work Phone: Start: 30-66-2665JGMKMQBS, Provider: Merrill Alejandro, Status: Pen, Time: 1:45 PMPREADMIT, Provider: Merrill Alejandro, Status: Pen, Time: 1:45 PM[facility] Work Phone: Start: 27-35-5794FPQZYTSF18, Provider: Natali Tyson, Status: Pen, Time: 1:00 LZXICGGRUK02, Provider: Natali Tyson, Status: Pen, Time: 1:00 PM[facility] Work Phone: Start: 58-89-3861Abxgjy Wellness Visit (AWV)Annual Wellness Visit (AWV)[facility]ITALStart: 27-21-9752Evfuwpwoyomj three- phase bone studyNM bone 3 phaseCleveland Clinic Hillcrest Hospitaltart: 12-17-2021 End: 24-22-0989Ickazea encounter procedureDepartOhioHealth Pickerington Methodist Hospital-Garfield Medical CenterStart: 16-41-3302CI scan of thyroidUS thyroid [facility] Hospitaltart: 12-07-2021 End: 60-33-1812Gthfybz encounter procedureDeparted [facility]Ultrasound Main CampusStart: 04-80-7056Inorsoiro vaccinationFlu vaccine (#1)[facility] Hospitalart: 53-27-7980MYTVU-19 Vaccine (4 - Booster for Moderna series)COVID-19 Vaccine (4 - Booster for Moderna series)[facility] Hospitalart: 26-48-9365Tabfkpsfs for malignant neoplasm of breast Breast cancer [facility] Hospitalart: 48-12-4481Yejdmajq vaccine (1 of 2)Shingles vaccine (1 of 2)[facility] Hospitalart: 02-23-2013 Screening for malignant neoplasm of colonBON [facility]: 26-64-7392Tklwx panelLipidsSentara Obici Hospitalart: 10-97-2848Bsrklvfp screenDiabetes [facility] Hospitalart: 47-03-6911Vrnntbmfv for malignant neoplasm of cervixSentara Obici Hospitalart: 82-83-4250Jrrigdicv for malignant neoplasm of cervixPap smearChildren's Hospital of [facility]: 41-10-8999NTuN/Tdap/Td vaccine (1 - Tdap)DTaP/Tdap/Td vaccine (1 - Tdap)[facility] Hospitalart: 25-99-4967Wmzdgnkba C screeningHepatitis C [facility] Hospitalart: 57-51-5207GJL screeningHIV [facility] Hospitalart: 42-26-5836Kxmunmrsdw ScreenDepression [facility] Daughtersart: 49-44-8036SLIUW-19 Vaccine (#1)COVID-19 Vaccine (#1)[facility] End: 74-25-9991Bwilv Metabolic Panel w/ Reflex to MGBasic Metabolic Panel w/ Reflex to MG Lab Routine Daily for 3 Days starting 07/02/2022 until 07/04/2022, 2 completedSENTARA NORFOLK GENERAL [facility] Work Phone: comment on above:Daily for 3 Days starting 07/02/2022 until 07/04/2022, 2 completed End: 77-97-2338BPV panel - Blood by Automated countCBC Lab Routine Daily for 3 Days starting 07/02/2022 until 07/04/2022, 2 completedBON [facility] [employer] Phone: comment on above:Daily for 3 Days starting 07/02/2022 until 07/04/2022, 2 completedComprehensive metabolic 2000 panel - Serum or [facility] CantonComprehensive metabolic 2000 panel - Serum or [facility] CantonIgA [Mass/volume] in Serum or [facility] CantonIgG [Mass/volume] in Serum or [facility] HospitalIgM [Mass/volume] in Serum or [facility] CantonOxygen therapy [Minimum Data Set]Initiate Oxygen Therapy Protocol Respiratory Care Routine Daily until discontinued starting 07/01/2022 [facility] [employer] Phone: comment on above:Daily until discontinued starting 07/01/2022Spirometry panelIncentive spirometry Respiratory Care Routine Every 2hr while awake until discontinued starting 07/01/2022[facility] [employer] Phone: compqfg on above:Every 2hr while awake until discontinued starting 07/01/2022[facility] Immunizations Immunization DateImmunizationNotesCare OzmkwxnuWuvosloe93-52-1608ewdackgby virus vaccine, unspecified formulationPINKYN Elizabeth Alvarado Work Phone: [facility]11-22-2016influenza, injectable, quadrivalent, preservative Daiana Davila Other [place] [employer] Other Payers DatePayer CategoryPayerPolicy [id number]-kdy [id number] Health [id number] 2.16.840.1.948233.3.57[id number] 2.840.1.260341.3.57[id number] 2..840.1.433484.3.57[id number] 2..0.1.165214.3.579.2.42[id number] 2.0.1.277448.3.57[id number] 2.0.1.283455.3.579.2.918644-70-2538Aozkzkx95427052 2..1.057672.3.579.2.302172-88-6061Alyufcn88702380 2.0.1.027541.3.579.2.868727-20-4516Supmjjt49426444 2..1.360077.3.579.2.607517-07-6736Lhbntwq75387525 2..1.400467.3.57[id number] MediBlue Dual [id number] Health InsuranceHollywood Presbyterian Medical Center [id number] HEALTHCARE DUAL [id number] 2.16.840.1.517365.3.579.2.531 Social History DateTypeDetailFacilityStart: 06-03-2017 End: 18-88-1823Kksubxy smoking status NHISNever smoked tobacco (finding) [facility] Hospitaltart: 61-71-0763Fhl Assigned At BirthFemale [facility] Hospitaltart: 13-74-8042Tateehu use and exposure Smokeless tobacco non-userBON [employer] Phone: start: 06-24-2022 End: 19-38-8756Ykhjmob intakeCurrent drinker of alcohol (finding)[employer] Phone: start: 11-80-5510Gfnearr CommentoccasionalBON [employer] Phone: start: 73-99-1441Cpj Assigned At BirthNot on fileBioapter Phone: start: 06-14-2022 End: 98-53-0921Vggfcrwt to SARS-CoV-2 (event)Not sureBioapter Phone: sex [facility] [employer] Other Medical Equipment Procedure CodeEquipment CodeEquipment Original TextEquipment IdentifierDates Cement Bioprep St - [id number]: 49-57-0539Dswt Tib L100mm [id number] Knee Tot Stbl Joey Roberta [employer] - [id number] ([id number], [id number] FDAStart: 07-01-2022 Clinical Notes 06-24-2022 to 03-02-2023 Note Date & DsfnVzuhQwtqdcua64-63-7652 Evaluation note* Encounter Date Diagnosis Assessment Notes Treatment Notes Treatment Clinical Notes Feb, Symptomatic varicose veins of right [...] will schedule this in the near future. Feb,Valvular incompetence (ICD-10 - I38) Feb,Venous insufficiency of right leg (ICD-10 - I87.2) Feb,Venous hypertension of both lower extremities (ICD-10 - I87.303) [employer] Other 10-04-2023 Evaluation note* Encounter Date Diagnosis Assessment Notes Treatment Notes Treatment Clinical Notes Jan, Symptomatic varicose veins of both lower extremities (ICD-10 - I83.893) This patient struggles with achiness, heaviness, leg fatigue, itching, burning, and swelling of bilateral lower extremities, left greater than right. She has been wearing graded compression stockingsas given by her primary care provider with [...] ongoing importance of her conservative therapy efforts. Jan,ilateral lower extremity edema (ICD-10 - R60.0) [employer] Other 04-24-2023 Consult note Author Zoey Ramirez [facility] August 16, 2022 3:19pmNote Date/TimeApr2022 2:20pmFaith [facility] at [address] [address] Hem/Onc Consult Note - OP Signed Patient: Geeta Shelton MR#: [id number] : 1970 Acct:[id number] Age/Sex: 52 / F Type: REG RCR Copies to: Elizabeth Alvarado APRN,BARREL MAKER Lorrie Baig DO~ HPI Date/Time of Service: Date of Service: 08/16/2022 Time of Service: 14:19 Referring Provider/PCP: Referring Provider: Lorrie Baig DO PCP: Elizabeth Alvarado APRN, DIRECTOR ONCOLOGY-C - History of Present Illness Reason for [...] in regards to an incidental finding of anasymmetrical gamma; suspicious for the presence of monoclonal immunoglobulin on SPEP drawn at the time of work up for polyneuropathy. Labs from 07/23/2022 are reviewed; vitamin D 12 was at the low endof normal?358; folate?12.8; TSH within normal range at [...] and/or blood disorder. No history of thrombosis. [facility] - Medical History Medical History: Medical [...] mucosa is pink and moist. No lesions orexudate. NECK: Supple without adenopathy or thyromegaly. HEART: [...] Additional comments: Patient: Geeta Shelton MR#: [id number] : 1970 Acct:[id number] Age/Sex: 51 / F ADM Date: 2 Loc: NM Room: Type: [facility] Attending Dr: Tyler Villeda PA-C Copies to: [...] the patient does not have any evidence ofCRAB (no hypercalcemia, renal insufficiency, anemia or bony [...] polyneuropathy with acute onchronic denervation distally; no evidenceof lumbar plexopathy or myopathic process. SPEP was [...] - new patient, review outside labs, outside visit,medical history, order complex lab testing Coordination of Care & Counseling Time: Greater than 50% of time spent with patient was for coordination of care (as documented) and dacx-rq-shrt counseling of patient and/or family. Dictated By: Zoey Ramirez APRN DD/ 1419 Signed By: <Electronically signed by RHEA Ramirez> 08/16/22 1519 [facility] Work Phone: [phone] History of Present illness Narrative* Sosa Poon [...] tape after removal as ordered. Patient has [facility] set up. Knee immobilizer sent [...] Therapy Med Surg Daily Treatment Note Facility/Department: [address] ORTHO TELE Room: W268/W268-01 NAME: Geeta Shelton : 1970 [...] BLOCK-DEMETRIA performed by Ac[facility] Schafer MD [facility] Chart Reviewed: Yes Restrictions: Restrictions/Precautions: Fall Risk;Weight Bearing Lower Extremity Weight Bearing Restrictions Right Lower Extremity Weight Bearing: Weight Bearing As Tolerated Required Braces or Orthoses Right Lower Extremity Brace: Knee Immobilizer Position Activity Restriction Other position/activity restrictions: d/c knee immobilizer when able to perform SLR SUBJECTIVE: Subjective: This leg is so restless Pain Pain: 07/02 pain pre/post session OBJECTIVE: [...] Recommendations: Continue to assess pending progress Goals Jail Goals Jail Goal 1: Bed mobility with indep High School Sports Coach Goal 2: Functional transfes with indep High School Sports Coach Goal 3: Amb 50ft with 2ww and indep Jail Goal 4: 4 steps with handrail and SBA High School Sports Coach Goal 5: indep with HEP to improve [...] Therapy Med Surg Daily Treatment Note Facility/Department: [address] ORTHO TELE Room: [place] [address] NAME: Geeta Shelton : 1970 (52 y.o.) [...] Recommendations: Continue to assess pending progress Goals High School Sports Coach Goals Jail Goal 1: Bed mobility with indep High School Sports Coach Goal 2: Functional transfes with indep High School Sports Coach Goal 3: Amb 50ft with 2ww and indep High School Sports Coach Goal 4: 4 steps with handrail and SBA High School Sports Coach Goal 5: indep with HEP to improve LE strength and ROM Patient Goals Patient Goals : to go home PLAN General Plan: 2 times a day 7 days a week Safety Devices Type of Devices: All fall risk precautions in place, Call light within reach, Left in bed, Bed alarm in place, Nurse notified [facility] (6 CLICK) BASIC MOBILITY AM-PAC Inpatient Mobility Raw Score : 17 Therapy Time Individual Time In 0945 Time Out 1025 Minutes 40 BM/trsf- 10 Gait- 15 Therex- 15 Piyush Agustin, ZULEIKA, 07/02/22 at 11:35 AM Definitions for assistance [...] to accomplish the task * Arya Coronado, COMPOUNDING TECHNICIAN - BARREL MAKER - 07/02/2022 9:49 AM EST Progress Note [...] puffs by inhalation with spacer [] Ipratropium Midland 0.02% unit dose by aerosol Ipratropium Midland MDI 2 puffs by inhalation with spacer [] Duoneb (Ipratropium + Albuterol) unit dose by aerosol Ipratropium MDI + Albuterol MDI 2 puffs byinhalation w/spacer MDI to Aerosol [] Albuterol Sulfate MDI Albuterol Sulfate 0.083% unit dose by aerosol [] Levalbuterol MDI 2 puffs by inhalation Levalbuterol 1.25 mg unit dose by aerosol [] Ipratropium Midland MDI by inhalation Ipratropium Midland 0.02% unit dose by aerosol [] Combivent (Ipratropium + Albuterol) MDI by inhalation Duoneb (Ipratropium + Albuterol) unit doseby aerosol Treatment Assessment [Frequency/Schedule]: Change frequency to: NO CHANGE per Protocol, P&T, [facility] Points 0 1 2 3 4 Pulmonary [...] (52 y.o.) CODE STATUS: Full Code [facility] Date of Service: 07/01/2022 Patient Diagnosis(es): Loosening [...] Ambulation Assistance: Independent Transfer Assistance: Independent Active Oil Pit Attendant: Yes Mode of Transportation: Car OBJECTIVE: Orientation [...] How much help for eating meals?: None AM-[facility] Inpatient Daily Activity Raw Score: 19 AM-[facility] Inpatient ADL T-Scale Score : 40.22 [...] Physical Therapy Med Surg Initial Assessment Facility/Department: [address] Room: [place] [address] NAME: Geeta Shelton : 1970 (52 y.o.) [...] Ambulation Assistance: Independent Transfer Assistance: Independent Active Oil Pit Attendant: Yes Mode of Transportation: Car OBJECTIVE: Vision [...] Goals: Patient Goals : to go home Jail Goals High School Sports Coach Goal 1: Bed mobility with indep High School Sports Coach Goal 2: Functional transfes with indep High School Sports Coach Goal 3: Amb 50ft with 2ww and indep Jail Goal 4: 4 steps with handrail and SBA High School Sports Coach Goal 5: indep with HEP to improve LE strength and ROM [facility] (6 CLICK) BASIC MOBILITY AM-PAC Inpatient [...] accomplish the task documented in this encounterBON AVENIR [facility] AT SURPRISEGreenerU Work Phone: 1([phone]) 143-636403-09-2023 History of Present illness Narrative* History of [...] she will most likely do this at [facility] in [place]. * Physical exam * General: No acute [...] see dictated x-ray report * Procedure * [place] removed Steri-Strips placed without complication * Assessment [...] grammatical areas may persist related to the [place] software * Merrill Alejandro PA-C * . -[place] [facility] Work Phone: [phone]) 749-146003-07-2023 Hospital Discharge instructions* Discharge Instructions* Arya Kamryngala Coronado, COMPOUNDING TECHNICIAN - BARREL MAKER - 06/29/2022 11:33 AM EST Total Knee [...] Schafer MD PCP: Elizabeth Alvarado Discharging Nurse: MARIO Discharging Hospital Unit/Room#: W268/W268-01 Discharging Unit Phone Number: [phone] Emergency Contact: Extended Emergency Contact Information Primary Emergency Contact: kena travis Relation: Other Past Surgical History: Past Surgical History: Procedure Laterality Date JOINT REPLACEMENT Left knee PARTIAL KNEE ARTHROPLASTY Right REVISION TOTAL KNEE ARTHROPLASTY Right 07/01/2022 RIGHT KNEE RIGHT TOTAL KNEE REVISION INSTRUMENTATION ANTONELLA FEMORAL & SCIATIC BLOCK-DEMETRIA performed by Acosta Schafer [facility] [place] [facility] [place] Immunization History: There is no immunization [...] Assisted Dressing Assisted Toileting Independent Feeding Independent Interpretive Program Coordinator Independent Med Delivery whole Wound Care Documentation [...] 07/01/22 Knee Anterior;Right (Active) Dressing Status Clean;Dry;Intact 07/02/22 2100 Incision Cleansed Not Cleansed 07/01/221942 Dressing/Treatment [place] [...] applicable) Name: Address: Dialysis Schedule: Phone: Fax: Mitten Stitcher/Java Security Engineer signature: {Esignature:[id number]} PHYSICIAN SECTION Prognosis: {Prognosis:2284835661} Condition at Discharge: { Patient Condition:112190013} Rehab Potential (if transferring to Rehab): {Prognosis:1016292389} Recommended Labs or Other Treatments After Discharge: Physician Certification: I certify the above information and transfer of Geeta Shelton is necessary for the continuing treatment of the diagnosis listed and that she requires {Admit to AppropriateLevel of Care:29461} for {GREATER/LESS:928099223} 30 days. Update Admission H&P: {CHP DME Changes in HandP:054872271} PHYSICIAN SIGNATURE: {Esignature:[id number]} * Attachments The following attachments cannot be sent through Care Everywhere. * Total Knee Replacement Surgery: General Info (Mongolian) * Wound: VAC (Vacuum-Assisted Closure) (Mongolian) documented in this encounterP[facility] [employer] Phone: [phone] 151-521503-02-2023 History of Present illness Narrative* Sindy Pelaez RN - 06/24/2022 11:10 AM EST Yellow PAT and Dynahex instruction sheet reviewed with patient, who verbalized understanding. documented in this encounterSOUTHEAST[facility] [employer] Phone: evaluation noteNo assessment information available [facility] Work Phone: Evaluation note* Diagnosis Status post revision of total knee replacement, right- Primary Status post revision of total replacement of right knee Acute postoperative pain Other acute postoperative pain documented in this encounter [facility] Phone: evallifnyk note* Diagnosis Onset Date Resolution Status MGUS (monoclonal gammopathy of unknown s ignificance) acuteMicrocytosisacutePeripheral neuropathyacute [facility] Work Phone: Evaluation note* Diagnosis Onset Date Resolution Status MGUS (monoclonal gammopathy of unknown s ignificance) acuteMicrocytosisacutePeripheral neuropathyacuteMGUS (monoclonal gammopathy of unknown significance)acute [facility] Work Phone: History general Narrative - Reported* Type Description Date Medical History asthma Medical HistorysnoringMedical HistoryAllergic RhinitisMedical HistoryEssential HypertensionSurgical HistoryRevise/Replace left knee jointSurgical History Varicose [id number] HistoryRight ankle surgeryHospitalization HistorySee above [facility] Other History of Present illness Narrative* New [...] grammatical areas may persist related to the [employer] software * Acosta Schafer MD * Senior Attending Physician * [facility] * . [facility] Work Phone: History of Present illness Narrative* [...] grammatical areas may persist related to the [employer] software * Acosta Schafer MD * Senior Attending Physician * [facility] * . [facility] Work Phone: History of Present illness Narrative* [...] will be re-assessed and goals updated. [facility] Work Phone: History of Present illness Narrative* [...] will be re-assessed and goals updated. [facility] Work Phone: History of Present illness Narrative* [...] Schafer MD * Senior Attending Physician * [facility] * . [facility] Work Phone: History of Present illness Narrative* [...] grammatical areas may persist related to the [employer] software * Merrill Alejandro PA-C * . -[facility] Work Phone: Progress note Author Krzysztof Salazar [facility] September 21, 2022 9:52amNote Date/TimeMay 2022 9:49[facility] at [address] [address] Hem/Onc Follow Up Note - OP Signed Patient: Geeta Shelton MR#: [id number] : 1970 Acct:[id number] Age/Sex: 52 / F Type: REG RCR Copies to: Elizabeth Alvarado,COMPOUNDING TECHNICIAN,BARREL MAKER Lorrie Baig,DO~ Date of Service: 09/21/2022 Time [...] the patient does not have any evidence ofCRAB (no hypercalcemia, renal insufficiency, anemia or bony [...] in regards to an incidental finding of anasymmetrical gamma; suspicious for the presence of monoclonal immunoglobulin on SPEP drawn at the time of work up for polyneuropathy. Labs from 07/23/2022 are reviewed; vitamin D 12 was at the low endof normal?358; folate?12.8; TSH within normal range at [...] mucosa is pink and moist. No lesions orexudate. NECK: Supple without adenopathy or thyromegaly. HEART: [...] for coordination of care (as documented) and [id number] counseling of patient and/or family. [facility] - Medical History Medical History: Medical [...] by Krzysztof Salazar II, DO> 09/21/22 0952 [facility] Work Phone: Reason for visit Narrative* Initial Evaluation, Pre-Op . * Ref[facility]: [facility] Acosta Schafer [facility] Work Phone: Reason for visit Narrative* Initial Evaluation, Pre-Op . * Referred by: Dr. Acosta Schafer [facility] Work Phone: Summary Purpose Family History No Family History Records Found Relationship Condition Age at Onset Recorded Date/T sylvester Not Specified Hypercholesterolemia Unknown AsthmaUnknownfatherDiabetes mellitusUnknownHypertensionUnknown Relationship Condition Age at Onset Recorded Date/T sylvester Not Specified Hypercholesterolemia Unknown AsthmaUnknownfatherDiabetes mellitusUnknownHypertensionUnknownfatherDeceased UnknownHeart diseaseUnknownDiabetes mellitusUnknown Advance Directives No Advanced Directives Records Found Advance Directive Response Recorded Date/ Time Advance Directives No December 11:18am Advance Directive Response Recorded Date/ Time Advance Directives No December 10:18am Code StatusDate ActivatedDate InactivatedCommentsFull Code07/01/2022 3:02 PM Chief Complaint and Reason for Visit Chief Complaint R23.2 Throat Tightness m25.562 m25.561 Chief Complaint m25.562 m25.561 Chief Complaint I10 R20.0 Chief Complaint R20.0 MK TKA Abnormal SPEPReason for VisitMGUS (monoclonal gammopathy of unknown significance) Microcytosis Peripheral neuropathy Chief Complaint J45.40 J45.40 Chief Complaint J45.40 J45.40 leg swelling Chief Complaint leg swelling Screening Chief Complaint Type 2 diabetes casimiro itus without complication, wit Chief Complaint E11.9 E11.9 N93.9 Abnormal SPEP Follow UpReason for VisitMGUS (monoclonal gammopathy of unknown significance) Microcytosis Peripheral neuropathy MGUS (monoclonal gammopathy of unknown significance) Chief Complaint new patient. bilat knee pain. xrays today.new patient. bilat knee pain. xrays today.* POV * Rt TK-Revision * DOS: 07/01/22, 2 weeks out * xrays today * R tTK-Revision * DOS: 07/01/22 * xrays today * R tTK-Revision * DOS: 07/01/22 Reason for Referral SpecialtyDiagnoses / ProceduresReferred By ContactReferred To Contact Diagnoses Status post revision of total replacement of right knee Cliff, Arya Harry, COMPOUNDING TECHNICIAN - BARREL MAKER [address] [place] [address] Referral IDStatusReasonStart DateExpiration DateVisits RequestedVisits [id number] Specialty Services Required /[id number] I certify that I, or a nurse practitioner or physician dental laboratory assistant working with me, had an in-person encounter with the patient and the reason for the home care services is documented in the clinical note on: 07/01/2022 Will the referring provider be the attending provider for home health? [place] of attending provider for home health Dr. Schafer The patient is confined to home: Due to illness or injury that necessitates supportive device aid, use of special transportation, orassistance of another person to leave home, AND [...] section and content) DATE CREATED AUTHOR 02/01/2019 [facility] DATE CREATED AUTHOR AUTHOR'S ORGANIZ ATION 07/04/2022 [facility] DATE CREATED AUTHOR AUTHOR'S ORGANIZ ATION 07/08/2022 [facility] DATE CREATED AUTHOR AUTHOR'S ORGANIZ ATION 12/30/2022 [facility] DATE CREATED AUTHOR AUTHOR'S ORGANIZ ATION 01/09/2023 [facility] DATE CREATED AUTHOR AUTHOR'S ORGANIZ ATION 06/12/2024 [facility] DATE CREATED AUTHOR AUTHOR'S ORGANIZ ATION 10/04/2024 [facility] Care Teams (unrecognized sec tion and content) Team Status: Active Member Role Status Dates Elizabeth Alvarado APRN DIRECTOR ONCOLOGY-C Primary Care Provide r Active Team Status: Inactive Member Role Status Dates Elizabeth Alvarado APRN DIRECTOR ONCOLOGY-C Primar y Care Provider, Attending Provider Active Team Status: Inactive Member Role Status Dates Elizabeth Alvarado APRN DIRECTOR ONCOLOGY-C Primary Care Provide r Active Guillermina Watkins ProviderActive Team Status: Inactive Member Role Status Dates Elizabeth Alvarado APRN DIRECTOR ONCOLOGY-C Primary Care Provide r Active Chris Cavazos ProviderActive Team Status: Inactive Member Role Status Dates Elizabeth Alvarado APRN DIRECTOR ONCOLOGY-C Attending Provider A ctive Services [facility] ProviderActiveTeam MemberRelationship SpecialtyStart DateEnd Date Elizabeth Alvarado PCP - General07/01/22 Team Status: Active Member Role Status Dates Elizabeth Alvarado APRN DIRECTOR ONCOLOGY-C Primary Care Provide r Active Darian Tanner ProviderActiveNicole Jovanni , DOReferring ProviderActive Team Status: Inactive Member Role Status Dates Elizabeth Alvarado , RHEA DIRECTOR ONCOLOGY-C Primary Care Provide r Active Acosta Hodges ProviderActive Team Status: Inactive Member Role Status Dates Elizabeth Alvarado APRN DIRECTOR ONCOLOGY-C Primary Care Provide r Active Sindy Davila NP-CAttennancie ProviderActive Team Status: Inactive Member Role Status Dates Elizabeth Alvarado APRN DIRECTOR ONCOLOGY-C Attending Provider A ctive Start: August 24, 2023 End: August 24, 2023 Team Status: Active Member Role Status Dates PHYSICIAN NO FAMILY Primary Care Provider Active Team Status: Inactive Member Role Status Dates Elizabeth Alvarado , RHEA DIRECTOR ONCOLOGY-C Attending Provider A ctive Start: September 07, 2023 End: September 06HYSICIAN NO FAMILYPrimary Care ProviderActiveStart: September 07, 2023 End: September 07, 2023 Team Status: Active Member Role Status Dates Elizabeth Alvarado APRN DIRECTOR ONCOLOGY-C Primary Care Provide r Active Start: September 30, 2023 Zoey Ramirez , APRNActiveStart: September 30, 2023 CASTILLO Waktinseferring ProviderActiveStart: September 30, 2023 Krzysztof Salazar II, DOAttending ProviderActiveStart: September 30, 2023 Team Status: Inactive Member Role Status Dates Elizabeth Alvarado , RHEA DIRECTOR ONCOLOGY-C Primary Care Provide r Active Start: September 30, 2023 End: September 30, 2023Holli Soriano APRNAtmarina ProviderActiveStart: September 30, 2023 End: September 30, 2023 [...] for Visit (unrecogniz ed section and content) SpecialtyDiagnoses / ProceduresReferred By ContactReferred To Contact Diagnoses 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 DE REVJ TOTAL KNEE ARTHRP W/WO ALGRFT 1 COMPONENT DE REVJ TOT KNEE ARTHRP FEM&ENTIRE TIBIAL COMPONE RIGHT KNEE RIGHT TOTAL KNEE REVISION INSTRUMENTATION ANTONELLA FEMORAL & SCIATIC BLOCK Acosta Schafer MD [address] [place] [address] [facility] [address] [place] [address] Referral IDStatusReasonStart DateExpiration DateVisits RequestedVisits [id number] Ordered Prescriptions (unrec ognized section and content) PrescriptionSigDispensedRefillsStart DateEnd Date XARELTO 20 MG TABS tablet Take 1 tablet by mouth daily (with breakfast) for 28 days Take half tablet by mouth 10 mg once daily for 28 days 28 tablet /10/2022 sennosides-docusate sodium (SENOKOT-S) 8.6-50 MG tablet Take 1 tablet by mouth 2 times daily for 10 days 20 tablet / oxyCODONE (ROXICODONE) 5 MG immediate release tablet Indications:Acute postoperative painTake 1 tablet by mouth every 4 hours as needed for Pain for up to 7 days. Max Daily Amount: 30 mg 28 tablet / Scheduled Active and Recently Administ ered Medications (unrecognized section and content) Medication Order//02/2023 acetaminophen (TYLENOL) tablet 1,000 mg (COMPLETED) 1,000 mg, Oral, ONCE, 1 dose, On Renee 07/01/22 at 0845, Maximum dose of acetaminophen is 4000 mg from all sources in 24 hours., Pre-op (day of surgery) * 0904 (Given - Provider: Rodolfo Chacko RN) acetaminophen (TYLENOL) tablet 650 mg 650 mg, Oral, EVERY 6 HOURS, First dose on Renee 07/01/22 at 1600, Until Discontinued, Maximum dose of acetaminophen is 4000 mg from all sources in 24 hours., Post-op * 1637 (Given - Provider: Ozzie Carpenter RN) * 223 (Given - Provider: Fouzia Ramos RN) * 0603 (Given - Provider: Fouzia Ramos RN) * 1254 (Given - Provider: Sosa Poon RN) * 1804 (Given - Provider: Sosa Poon RN) * 2057 (Given - Provider: Stefany Valdes, LAUREN) * 0353 (Not Given - Provider: Stefany Valdes RN - Reason: Other - Comment: alternate pain medication given per pt request) * 0812 (Given - Provider: Sosa Poon RN) * 1600 (Due) * 2200 (Due) aspirin EC tablet 81 mg (CANCELED) 81 mg, Oral, 2 TIMES DAILY, First dose on Renee 07/01/22 at 2100, Until Discontinued, Do not crush or break., Post-op * 2230 (Given - Provider: Fouzia Ramos RN) * 0903 (Given - Provider: Sosa Poon RN) budesonide-formoterol (SYMBICORT) 160-4.5 MCG/ACT inhaler 2 puff 2 puff, Inhalation, 2 TIMES DAILY, First dose on Renee 07/01/22 at 2000, Until Discontinued, Substituted for mometasone-formoterol (DULERA). * 2037 (Given - Provider: Joy Og RCP) * 191 (Not Given - Provider: Joy Og RCP - Reason: Other) * 191 (Given - Provider: Joy Og RCP) * 1919 (Not Given - Provider: Joy Og RCP - Reason: Other) * 0733 (Given - Provider: Lizzie Aponte RCP) * 1999 (Due) celecoxib (CELEBREX) capsule 200 mg (COMPLETED) 200 mg, Oral, ONCE, 1 dose, On Renee 07/01/22 at 0845, Pre-op, Pre-op (day of surgery) * 0905 (Given - Provider: Rodolfo Chacko RN) ketorolac (TORADOL) injection 30 mg (COMPLETED) 30 mg, IntraVENous, EVERY 6 HOURS, 3 doses, First dose on Renee 07/01/22 at 1800, Last dose on Tue07/02/22 at 0600, Do not administer for more than 5 days., Post-op * 1825 (Given - Provider: Ozzie Carpenter RN) * 0020 (Given - Provider: Fouzia Ramos RN) * 0629 (Given - Provider: Fouzia Ramos RN) montelukast (SINGULAIR) tablet 10 mg 10 mg, Oral, DAILY, First dose on Tue07/01/22 at 1545, Until Discontinued * 1638 (Given - Provider: Ozzie Carpenter RN) * 0903 (Given - Provider: Sosa Poon RN) * 0812 (Given - Provider: Sosa Poon RN) oxyCODONE (OXYCONTIN) extended release tablet 10 mg (COMPLETED) 10 mg, Oral, ONCE, 1 dose, On Tue07/01/22 at 0845, Do not crush or break., Pre-op (day of surgery) * 0905 (Given - Provider: Rodolfo Chacko RN) rivaroxaban (XARELTO) tablet 10 mg 10 mg, Oral, DAILY, First dose on Tue07/02/22 at 1800, Until Discontinued, Indication of Use: Post-Op Knee/Hip, 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 Doses of GREATER THAN or EQUAL to 15 mg/day must be administered with food. * 1802 (Given - Provider: Sosa Poon RN) * 1800 (Due) rOPINIRole (REQUIP) tablet 0.25 mg 0.25 mg, Oral, 2 times daily, First dose on Tue07/01/22 at 2100, Until Discontinued * 2313 (Given - Provider: Fouzia Ramos RN) * 0903 (Given - Provider: Sosa Poon RN) * 2058 (Given - Provider: Stefany Valdes RN) * 0813 (Given - Provider: Sosa Poon RN) * 2100 (Due) sennosides-docusate sodium (SENOKOT-S) 8.6-50 MG tablet 1 tablet 1 tablet, Oral, 2 TIMES DAILY, First dose on Tue07/01/22 at 2100, Until Discontinued, Post-op * 2231 (Given - Provider: Fouzia Ramos RN) * 0903 (Given - Provider: Sosa Poon RN) * 2058 (Not Given - Provider: Stefany Valdes RN - Reason: Patient/family refused) * 0813 (Held - Provider: Sosa Poon RN - Reason: Patient/family refused) * 2100 (Due) sodium chloride flush 0.9 % injection 5-40 mL 5-40 mL, IntraVENous, EVERY 12 HOURS SCHEDULED (2 times per day), First dose on Tue07/01/22 at 2100,Until Discontinued, For Line Patency: Peripheral IV = [...] or Central Line = 20 mL/lumen, Post-op * 2259 (Given - Provider: Fouzia Ramos RN) * 0904 (Held - Provider: Sosa Poon RN - Reason: IV Fluid Infusing) * 2100 (Given - Provider: Stefany Valdes RN) * 0813 (Given - Provider: Sosa Poon RN) * 2100 (Due) tranexamic acid (LYSTEDA) tablet 1,950 mg (CANCELED) 1,950 mg, Oral, 90 MIN PRE-OP, Starting on Tue07/01/22 at 0824, Until Tue07/01/22 at 1321, To be given 90 minutes prior to surgery, Pre-op (day of surgery) * 0905 (Given - Provider: Rodolfo Chacko RN) tranexamic acid (LYSTEDA) tablet 1,950 mg (COMPLETED) 1,950 mg, Oral, ONCE, 1 dose, On Tue07/02/22 at 0600, Do not crush or break. Administer POD1 at 0600. * 0603 (Given - Provider: Fouzia Ramos RN) tranexamic acid (LYSTEDA) tablet 1,950 mg (COMPLETED) 1,950 mg, Oral, ONCE, 1 dose, On Tue07/01/22 at 1700, Do not crush or break. 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 * 1637 (Given - Provider: Ozzie Carpenter RN) * 0903 (Given - Provider: Sosa Poon, LAUREN) * 0812 (Given - Provider: Sosa Poon, RN) Medication Order//02/2023 lactated ringers IV soln infusion () IntraVENous, at 50 mL/hr, CONTINUOUS, Starting on Renee 07/01/22 at 1530, For 24 hours, Post-op * 1617 (Rate/Dose Change - Provider: Ozzie Carpenter RN) * 1257 (Stopped - Provider: Sosa Poon RN - Comment: pt requested fluids to be stopped now, eating and drinking well) lactated ringers IV soln infusion (CANCELED) IntraVENous, at 100 mL/hr, CONTINUOUS, Starting on Renee 07/01/22 at 0945, Pre-op (day of surgery) * 1011 (New Bag - Provider: Rodolfo Chacko RN) * 1100 (NoRateChange - Provider: RHEA Adrian CRNA) * 1311 (Anesthesia Volume Adjustment - Provider: RHEA Adrian CRNA) * 1324 (Anesthesia Volume Adjustment - Provider: RHEA Adrian CRNA) lactated ringers IV soln infusion IntraVENous, at 125 mL/hr, CONTINUOUS, Starting on Renee 07/01/22 at 1330, PACU only * 1617 (Stopped - Provider: Ozzie Carpenter RN) Medication Order//02/2023 0.9 % sodium chloride infusion IntraVENous, at 5-250 mL/hr, PRN, if patient receiving piggyback infusions and maintenance fluids are not ordered OR KVO fluids to protect IV site / prevent frequent line interruptions/ long duration, Starting on Renee 07/01/22 at 1502, For piggyback infusion, administer at same rate as piggyback for atotal of 25 mL. Enter 25 mL into [...] 07/01/22 at 1502, Until Discontinued, Muscle spasms * 2231 (Given - Provider: Fouzia Ramos RN) * 0903 (Given - Provider: Sosa Poon RN) * 1158 (Given - Provider: Sosa Poon, LAUREN) mastisol adhesive LIQD (CANCELED) PRN, Starting on Renee 07/01/22 at 1304, Intra-op * 1304 (Given - Provider: Acosta Schafer MD) [...] of each other unless specifically ordered., Post-op * 2228 (Given - Provider: Fouzia Ramos RN) [...] 1502, Until Discontinued, Pain Severe (7-10), Post-op * 185 (See Alternative - Provider: Ozzie Carpenter RN) * 0235 (Given - Provider: Fouzia Ramos RN) * 0602 (See Alternative - Provider: Fouzia Ramos RN) * 1254 (See Alternative - Provider: Sosa Poon RN) * 1803 (See Alternative - Provider: Sosa Poon RN) * 0354 (Given - Provider: Stefany Valdes RN) * 0813 (See Alternative - Provider: Sosa Poon RN) oxyCODONE (ROXICODONE) immediate release tablet 5 mg(Linked Group 2) 5 mg, Oral, EVERY 4 HOURS PRN, Starting on Renee 07/01/22 at 1502, Until Discontinued, Pain Moderate (4-6), Post-op * 1857 (Given - Provider: Ozzie Carpenter RN) * 0235 (See Alternative - Provider: Fouzia Ramos RN) * 0602 (Given - Provider: Fouzia Ramos RN) * 1254 (Given - Provider: Sosa Poon RN) * 1803 (Given - Provider: Sosa Poon RN) * 0354 (See Alternative - Provider: Stefany Valdes RN) * 0813 (Given - Provider: Sosa Poon RN) polyethylene glycol (GLYCOLAX) packet 17 g 17 g, Oral, DAILY PRN, Starting on Renee 07/01/22 at 1502, Until Discontinued, Constipation, First linetherapy for constipation, Post-op sod chloride IRR soln 0.9 % irrigation (CANCELED) CONTINUOUS PRN, Starting on Renee 07/01/22 at 1307, Intra-op * 1255 (New Bag - Provider: Acosta Schafer MD - Comment: table irrigation) * 1257 (New Bag - Provider: Acosta Schafer MD - Comment: table irrigation) * 1307 (New Bag - Provider: Acosta Schafer MD) sodium chloride (PF) 0.9 % 18 mL with ketorolac (TORADOL) 30 MG/ML 30 mg, morphine 10 mg, ropivacaine (NAROPIN) 0.5% 30 mL (CANCELED) PRN, Starting on Renee 07/01/22 at 1302, Intra-op * 1302 (Given - Provider: Acosta Schafer MD) [...] as the IV push. Flush volume is determinedby type of infusion therapy being given. For non-viscous solutions use: Peripheral IV = 5 mL Midline or Central Line = 10 mL/lumen For viscous solutions (i.e. blood components, parenteral nutrition, contrast media, or after obtaining blood sample) use: Peripheral IV = 10 mL Midline or Central Line = 20 mL/lumen, Post-op Order Group 1: ondansetron (ZOFRAN-ODT) disintegrating tablet [...] BE BASED ON THE PRIMARY CLINICAL RECORDS. [employer] [facility]. provides no warranty or guarantee of the accuracy or completeness of information in this document.
== END 2025-03-19 10:41 | disposition home or self-care (01) ==
LOC: WC 10:40
PROVIDERS: Visit Provider Physician Assistant
DX: E11.621 Type 2 diabetes mellitus with foot ulcer (principal); L97.411 Non-pressure chronic ulcer of right heel and midfoot limited to breakdown of skin
CPT/HCPCS: G0463